=== PATIENT | male | born 1940 | race Caucasian/White ===

== ENCOUNTER 2021-11-29 14:54 | Outpatient (CLI) | payer SELFPAY ==
[2021-11-29 21:15] LABS: Basophils Absolute Auto 0.04 K/uL (0.00-0.30); Basophils Percent Auto 0.4 % (0.0-3.0); Eosinophils Absolute Auto 0.32 K/uL (0.00-0.50); Eosinophils Percent Auto 3.2 % (0.0-7.0); Hematocrit 40.3 % (37.0-53.0); Hemoglobin* 12.7 gm/dL (13.5-17.5); Immature Granulocytes Abs Auto 0.01 K/uL (0.00-0.30); Lymphocytes Percent Auto 17.3 % (20-44); Mean Corpuscular HGB Conc 32 gm/dL (32-36); Mean Corpuscular Hemoglobin 27 pg (26-34); Mean Corpuscular Volume 84 fL (80-100); Monocytes Percent Auto 5.2 % (0.0-11.0); Neutrophils Percent Auto 73.8 % (42.0-72.0); Platelet Count* 248 K/uL (140-440); RDW Coefficient of Variation % 15.5 % (11.5-15.5); Red Blood Count 4.78 m/uL (4.30-5.90); White Blood Count* 10.07 K/uL (4.50-11.00)
[2021-11-29 21:23] LABS: Slide Review Reflex No
[2021-11-29 21:32] LABS: Chloride* 107 mmol/L (96-114); Potassium* 3.9 mmol/L (3.6-5.1); Sodium* 141 mmol/L (135-149)
[2021-11-29 21:35] LABS: Blood Urea Nitrogen* 10 mg/dL (7-30); Carbon Dioxide* 24 mmol/L (20-32); Creatinine* 1.1 mg/dL (0.5-1.5); Estimated Glomerular Filt Rate 68 ml/min
[2021-11-29 21:36] LABS: Calcium* 8.9 mg/dL (8.4-10.6); Glucose* 138 mg/dL (60-115)
[2021-11-29 21:50] LABS: Troponin I* < 0.01 ng/mL (0.01-0.04)
== END 2021-11-29 14:55 | disposition home or self-care (01) ==
LOC: KYNREF 14:56
PROVIDERS: PCP Nurse Practitioner Family; Visit Provider Nurse Practitioner Family
DX: R07.9 Chest pain, unspecified (principal)
CPT/HCPCS: 36415; 80048; 84484; 85025

== ENCOUNTER 2021-12-11 15:07 | Outpatient (CLI) | payer SELFPAY ==
[2021-12-11 21:28] LABS: Basophils Absolute Auto 0.02 K/uL (0.00-0.30); Basophils Percent Auto 0.3 % (0.0-3.0); Eosinophils Absolute Auto 0.34 K/uL (0.00-0.50); Eosinophils Percent Auto 4.7 % (0.0-7.0); Hematocrit 37.3 % (37.0-53.0); Hemoglobin* 11.8 gm/dL (13.5-17.5); Immature Granulocytes Abs Auto 0.04 K/uL (0.00-0.30); Lymphocytes Absolute Auto 1.62 K/uL (0.90-2.90); Lymphocytes Percent Auto 22.5 % (20-44); Mean Corpuscular HGB Conc 32 gm/dL (32-36); Mean Corpuscular Hemoglobin 27 pg (26-34); Mean Corpuscular Volume 84 fL (80-100); Monocytes Percent Auto 7.8 % (0.0-11.0); Neutrophils Absolute Auto 4.63 K/uL (1.7-7.0); Neutrophils Percent Auto 64.1 % (42.0-72.0); Platelet Count* 264 K/uL (140-440); RDW Coefficient of Variation % 15.7 % (11.5-15.5); Red Blood Count 4.46 m/uL (4.30-5.90); White Blood Count* 7.21 K/uL (4.50-11.00)
[2021-12-11 21:31] LABS: Slide Review Reflex No
[2021-12-11 21:44] LABS: Albumin* 3.9 g/dL (3.3-5.0); Chloride* 107 mmol/L (96-114); Potassium* 3.9 mmol/L (3.6-5.1); Sodium* 142 mmol/L (135-149)
[2021-12-11 21:46] LABS: Amylase* 119 U/L (18-89); Carbon Dioxide* 25 mmol/L (20-32); Creatinine* 1.1 mg/dL (0.5-1.5); Estimated Glomerular Filt Rate 68 ml/min
[2021-12-11 21:47] LABS: Alanine Aminotransferase* 43 U/L (4-50); Alkaline Phosphatase* 286 U/L (40-150); Aspartate Amino Transferase* 44 U/L (12-35); Bilirubin Total* 1.1 mg/dL (0.1-1.5); Blood Urea Nitrogen* 11 mg/dL (7-30); Calcium* 8.8 mg/dL (8.4-10.6); Glucose* 99 mg/dL (60-115); Lipase* 107 U/L (23-300); Total Protein* 6.8 g/dL (6.0-8.3)
== END 2021-12-11 15:08 | disposition home or self-care (01) ==
PROVIDERS: PCP Nurse Practitioner Family; Visit Provider Nurse Practitioner Family
DX: R10.9 Unspecified abdominal pain (principal)
CPT/HCPCS: 36415; 80053; 82150; 83690; 85025

== ENCOUNTER 2021-12-17 15:14 | Outpatient (CLI) | payer MEDICARE, BC, SELFPAY ==
--- OUTSIDE RECORDS SUMMARY | 2021-12-17 09:41 | XMS_ITS | Encounter Summary ---
:1940 Author Organization [facility] Address [address] [place] [address] Care Team Providers Name Role Phone None, Pcp Primary Care Provider Unavailable Reason for Visit Reason Onset Date Comments Review Results 10/16/2020 Encounter Details Date Type Department Care Team Description 10/16/2020 Telephone [place] None, Pcp Review Results [address] [place], [place] [address] [place], [place] [phone] Social History Tobacco Use Types Packs/Day Years Used Date Never Smoker Smokeless Tobacco: Never Used Alcohol Use Standard Drinks/Week Comments No 0 (1 standard drink = 0.6 oz pure alcoho l) Alcohol Habits Answer Date Recorded How often do you have a drink containing alcohol? Never 04/04/2020 How many drinks containing alcohol do you have on a typical Not asked day when you are drinking? How often do you have six or more drinks on one occasion? No t asked Comment: Not asked Financial Resource Strain Answer Date Recorded How hard is it for you to pay for the very basics like Not h little at all 04/04/2020 food, housing, medical care, and heating? Food Insecurity Answer Date Recorded Within the past 12 months, you worried that your food would Never true 04/04/2020 run out before you got money to buy more. Within the past 12 months, the food you bought just didn't N ever true 04/04/2020 last and you didn't have money to get more. Transportation Needs Answer Date Recorded In the past 12 months, has lack of transportation kept you f rom No 04/04/2020 medical appointments or from getting medications? In the past 12 months, has lack of transportation kept you f rom No 04/04/2020 meetings, work, or getting things needed for daily living? Sex Assigned at Date Recorded Not on file documented as of this encounter Miscellaneous Notes Telephone Encounter - Abdirahman Hernandez - 10/16/2020 9:34 AM CDT Pt is scheduled for appt on 10/25. Thank you. Telephone Encounter - Guillermina Bradford LPN - 10/16/2020 8:23 AM CDT Please call Obey and schedule a review results appointment. Keep a copy at the front office coordinator for his appointment. Send to scanning the original. documented in this encounter Plan of Treatment Not on filedocumented as of this encounter Visit Diagnoses Not on filedocumented in this encounter Care Teams Supervisor Lump Room Relationship Specialty Start Date End Date None, Pcp PCP - General Entertainment Dancer 03/29/20 12/31/[address] [place] [phone] documented as of this encounter
--- OUTSIDE RECORDS SUMMARY | 2021-12-17 09:41 | XMS_ITS | Encounter Summary ---
:1940 Author Organization [facility] Address [address] [place] [address] Care Team Providers Name Role Phone None, Pcp Primary Care Provider Unavailable Encounter Details Date Type Department Care Team Description 09/08/2020 Orders Only [place] Elisha Woodward MD [address] [facility] [address] [place], [place] [address] [place], [place] [phone] (Wo rk) Social History Tobacco Use Types Packs/Day Years [...] on file documented as of this encounter Plan of Treatment Not on filedocumented as of this encounter Visit Diagnoses Not on filedocumented in this encounter Care Teams Employee Communications Specialist Relationship Specialty Start Date End Date None, Pcp PCP - General Sign Maintenance 03/29/20 12/31/20 [address] [place] [address] documented as of this encounter
--- OUTSIDE RECORDS SUMMARY | 2021-12-17 09:41 | XMS_ITS | Encounter Summary ---
:1940 Author Organization [facility] Address [address] [place] [address] Care Team Providers Name Role Phone Elisha Woodward MD Primary Care Provider Reason for Visit Reason Comments Med Refill Encounter Details Date Type Department Care Team Description 12/13/2021 Refill [place] Elisha Woodward Hyperlipidemia, unspecified [address] [facility] MD Dont[place] hyperlipidemia type [place], [place] [address] [phone] [place] [address] Social History Tobacco Use Types Packs/Day Years [...] this encounter Miscellaneous Notes Telephone Encounter - Nisha Morrison RN - 12/13/2021 9:11 AM CDT Please see med request. Telephone Encounter - Mitra Patel LPN - 12/13/2021 9:04 AM CDT Last visit in provider department: 10/25/2020 Last visit requested medication was discussed: 10/25/2020 Last Rx: #90 with 3 refills 10/25/2020 Requested Prescriptions Pending Prescriptions Disp Refills ??? ezetimibe (ZETIA) 10 MG tablet [Pharmacy Med Name: EZETIMIBE 10MG TABS] 90 tablet 1 Sig: TAKE ONE TABLET BY MOUTH EVERY DAY Labs: Component Latest Ref Rng & Units 08/21/2020 Cholesterol 0 - 199 mg/dL 166 Triglycerides 0 - 149 mg/dL 167 (H) HDL 40 - 250 mg/dL 37 (L) LDL Calculated 0 - 99 mg/dL 96 Vitals: BP Readings from Last 2 Encounters: 10/25/20 134/88 10/25/20 134/88 Upcoming appointment with provider: Visit date not found Patient is due for Annual Well Adult appointment. PSR/Nurse: Please contact patient to assist with scheduling. documented in this encounter Plan of Treatment Not on filedocumented as of this encounter Visit Diagnoses Diagnosis Hyperlipidemia, unspecified hyperlipidem ia type documented in this encounter Care Teams Microwave Technician Relationship Specialty Start Date End Date Elisha Woodward MD PCP - General 01/01/[address] [place] [address] documented as of this encounter
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
--- OUTSIDE RECORDS SUMMARY | 2021-12-17 09:41 | XMS_ITS | Encounter Summary ---
:1940 Author Organization [facility] Address [address] [place] [address] Care Team Providers Name Role Phone Elisha Woodward MD Primary Care Provider Reason for Visit Reason Comments Med Refill Encounter Details Date Type Department Care Team Description 11/01/2021 Refill [place] Elisha Woodward Gastroesophageal reflux [address] MD Dontrell disease without esophagitis [place], [place] [address]67 [facility] 20 [place] [address] Social History Tobacco Use Types Packs/Day Years [...] Telephone Encounter - Nisha Morrison RN - 11/01/2021 1:42 PM CDT Please review medication request. Telephone Encounter - Frances Arauz LPN - 11/01/2021 1:14 PM CDT Last visit in provider department: 10/25/2020 Last visit requested medication was discussed: 10/25/2020 Last Rx: 10/25/2020 # 90, 3 refills Requested Prescriptions Pending Prescriptions Disp Refills ??? pantoprazole (PROTONIX) 40 MG EC tablet [Pharmacy Med Name: PANTOPRAZOLE SODIUM 40MG TBEC] 90 tablet 1 Sig: TAKE ONE TABLET BY MOUTH EVERY DAY BEFORE BREAKFAST Vitals: BP Readings from Last 2 Encounters: 10/25/20 134/88 10/25/20 134/88 Upcoming appointment with provider: Visit date not found Patient is due for appointment. PSR/Nurse: Please contact patient to assist with scheduling. documented in this encounter Plan of Treatment Not on filedocumented as of this encounter Visit Diagnoses Diagnosis Gastroesophageal reflux disease without esophagitis Esophageal reflux documented in this encounter Care Teams Conservation Planner Relationship Specialty Start Date End Date Elisha Woodward MD PCP - General 01/01/[address] [place] [address] documented as of this encounter
--- OUTSIDE RECORDS SUMMARY | 2021-12-17 09:41 | XMS_ITS | Encounter Summary ---
:1940 Author Organization [facility] Address [address] [place] [address] Care Team Providers Name Role Phone None, Pcp Primary Care Provider Unavailable Encounter Details Date Type Department Care Team Description 10/25/2020 Lab [place] Iron deficiency anemia due t o [address] chronic blood loss [place] [address] Social History Tobacco Use Types Packs/Day Years [...] Not on filedocumented as of this encounter Procedures Procedure Name Priority Date/Time Associated Diagnosis Comme nts CBC BRANCH OFFICE Routine 10/25/2020 9:17 AM Resu lts for this W/DIFF CDT procedure are i n the results section. documented in this encounter Results (ABNORMAL) CBC Branch Off w/Diff (10/25/2020 9:17 AM CDT) [facility] gist Method Time Signature WBC 7.2 3.5 - 10.5 10/25/2020 [facility] K/uL 9:32 AM CDT [place] RBC 4.60 4.30 - 10/25/2020 [facility] 5.70 M/uL 9:32 AM CDT [place] Hemoglobin 12.7 (L) 13.5 - 10/25/2020 [facility] 17.5 g/dL 9:32 AM CDT [place] Hematocrit 40.3 38.0 - 10/25/2020 [facility] 50.0 % 9:32 AM CDT [place] Platelets 215 150 - 450 10/25/2020 [facility] K/uL 9:32 AM CDT [place] MCV 87.6 81.2 - 10/25/2020 [facility] 95.1 fL 9:32 AM CDT [place] MCH 27.6 26.0 - 10/25/2020 [facility] 32.0 pg 9:32 AM CDT [place] MCHC 31.5 (L) 32.0 - 10/25/2020 [facility] 36.0 g/dL 9:32 AM CDT [place] RDW 14.0 11.8 - 10/25/2020 [facility] 15.6 % 9:32 AM CDT [place] Lymphocytes % 23.8 % 10/25/2020 [facility] 9:32 AM CDT [place] Mid-size Cells 9.9 % 10/25/2020 [facility] 9:32 AM CDT [place] Granulocytes/Urszula 66.3 % 10/25/2020 [facility] trophils 9:32 AM CDT [place] Lymphocytes 1.7 0.9 - 2.9 10/25/2020 [facility] Absolute K/uL 9:32 AM CDT [place] MIDS Absolute 0.7 0.4 - 1.5 10/25/2020 [facility] K/uL 9:32 AM CDT [place] Granulocytes/Urszula 4.8 1.7 - 7.0 10/25/2020 [facility] [place] trophils K/uL 9:32 AM CDT [place] Absolute Specimen Anatomical Collection Method Collection Time Receive d Time (Source) Location / / Volume Laterality 10/25/2020 9:17 AM 9:31 CDT AM CDT D. 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
--- OUTSIDE RECORDS SUMMARY | 2021-12-17 09:41 | XMS_ITS | Encounter Summary ---
:1940 Author Organization [facility] Address [address] [place] [address] Care Team Providers Name Role Phone None, Pcp Primary Care Provider Unavailable Reason for Visit Reason Onset Date Comments Lab result 09/01/2020 Encounter Details Date Type Department Care Team Description 09/01/2020 Telephone [place] Elisha Woodward MD Lab result [address] [place], [place] [address] [place], [place] [phone] (Wo rk) Social History Tobacco Use Types [...] this encounter Miscellaneous Notes Telephone Encounter - Guillermina Bradford LPN - 09/04/2020 8:27 AM CDT Sent today and informed again about pharmacy. Telephone Encounter - Elisha Woodward MD - 09/01/2020 5:37 PM CDT I called and talked to Obey about his blood test both his hemoglobin being low as well as his stool test being positive for blood. We can arrange for him to get a colonoscopy and most likely endoscopy for evaluation. I have sent to his pharmacy for the GoLYTELY prep. If you could please send him by mail a copy of the prep sheet. After you send the prep sheet then call him later next week because he will be out of town till and go over the prep sheet make sure he understands this. Telephone Encounter - Arti Amaya - 09/01/2020 3:54 PM CDT Pt called wanting his lab result from this morning. Pt will be out of town next week and would really like the result today if possible. Please call Pt at home [phone] or cell [phone] to advise. documented in this encounter Plan of Treatment Not on filedocumented as of this encounter Visit Diagnoses Diagnosis Colon cancer screening - Primary Special screening for malignant neoplasm s, colon documented in this encounter Care Teams Procurement Professional Relationship Specialty Start Date End Date None, Pcp PCP - General Collar Baster Jumpbasting 03/29/20 12/31/20 [address] [place] [address] documented as of this encounter
--- OUTSIDE RECORDS SUMMARY | 2021-12-17 09:41 | XMS_ITS | Encounter Summary ---
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; [place] [address] Adenomatous polyp of colon, unspecified part of colon; [address] [place] Hyperlipidemia, unspecified hyperlipidem ia type; [phone] [place], Atherosclerosi s of [place] coronary artery without angina pectoris, unspecified whether [place] or transplanted heart; [place] [address] 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, unspecified vessel or lesion type, unspecified whether [place] or transplanted heart; [phone] Gastroesophagea l reflux disease without esophagitis (Work) Social History Tobacco Use Types Packs/Day Years [...] on file documented as of this encounter Last Filed Vital Signs Vital Sign Reading Time Taken Comments Blood Pressure 134/88 10/25/2020 8:31 AM CDT Pulse 76 10/25/2020 8:31 AM CDT Temperature 36.2 ??C (97.1 ??F) 10/25/2020 8:31 AM CDT Respiratory Rate 14 10/25/2020 8:31 AM CDT Oxygen Saturation 94% 10/25/2020 8:31 AM CDT Inhaled Oxygen Concentration - - Weight 75.3 kg (166 lb) 10/25/2020 8:31 AM CDT Height 167.4 cm (5' 5.91) 10/25/2020 8:31 AM CDT Body Mass Index 26.87 10/25/2020 8:31 AM CDT documented in this encounter Progress Notes Elisha Woodward MD - 10/25/2020 8:40 AM CDT Estab Patient Visit Subjective Patient ID: Obey Vines is a 80 y.o. male. HPI the patient is here today for follow-up of his anemia as well as his recent testing procedures. The patient is our 80-year-old gentleman who on recent laboratory test his hemoglobin was shown to drop fairly significantly from the previous 15 down to 12.8. His guaiac of his stool was positive. 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 He has colonoscopy showed that he has a couple of polyps that were adenomatous but because of his age no further colonoscopy procedures are necessarily indicated. He will need to stay on Protonix daily indefinitely. Because his hemoglobin today is still a little low we have added ferrous gluconate 1 tablet daily as well. He is actually having no particular other questions or concerns and otherwise feels okay Because of his Almeida's esophagus we did discuss with him to raise the head of his bed at least 6 inches to help decrease nighttime silent acid reflux. He does have also have a fairly good sized hiatal hernia and raising the head of the bed should be of benefit for him. We also discussed the shingles vaccine with him that he is going to check with his pharmacy to see if what his cost might be and we have encouraged him to have this done. 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 Do not crush or chew. Coronary artery 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 pectoris, unspecified vessel or lesion type, unspecified whether [place] or transplanted heart Gastroesophageal reflux disease without esophagitis - pantoprazole (PROTONIX) 40 MG EC tablet; TAKE 1 TABLET BY MOUTH ONCE DAILY BEFORE BREAKFAST The overall assessment is as stated above The plan at this time is to start him on iron tablets 1 pill once daily continue home on all of his other medications as he is currently taking them Raise the head of his bed at least 6 inches I would recheck a hemoglobin approximately 4 to 6 months to see how he is doing after initiation of iron therapy and continuation of Protonix. Consult time was 20 minutes and all 20 minutes was spent in review with him of his endoscopy report he has colonoscopy report what the reports mean both short- term and long-term as well as discussion of raising the head of his bed and the other measures for his history of hiatal hernia and Almeida's esophagus. 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 Adenomatous polyp of colon, unspecified part of colon Hyperlipidemia, unspecified hyperlipidem ia type Atherosclerosis of [place] coronary arter y without angina pectoris, unspecified whether [place] or transplanted heart 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, unspecified vessel or lesion type, unspecified whether [place] or transplant ed heart Gastroesophageal reflux disease without esophagitis Esophageal reflux documented in this encounter Care Teams Broadcast Transmitter Operator Relationship Specialty Start Date End Date None, Pcp PCP - General Furnace Loader 03/29/20 12/31/20 [address] [place] [address] documented as of this encounter
--- OUTSIDE RECORDS SUMMARY | 2021-12-17 09:41 | XMS_ITS | Encounter Summary ---
:1940 Author Organization [facility] Address [address] [place] [address] Care Team Providers Name Role Phone Elisha Woodward MD Primary Care Provider Reason for Visit Reason Comments Med Refill Encounter Details Date Type Department Care Team Description 11/17/2021 Refill [place] Elisha Woodward Hyperlipidemia, unspecified hyperlipidemia type; [address] [place] Gastroesophageal reflux disease without esophagitis [place], [place] [address] [place] [address] Social History Tobacco Use Types Packs/Day Years [...] Telephone Encounter - Nisha Morrison RN - 11/20/2021 8:09 AM CDT Please call patient to schedule. Telephone Encounter - Nisha Morrison RN - 11/20/2021 7:47 AM CDT Please review. Telephone Encounter - Jasmyn Thorne MA - 11/20/2021 7:15 AM CDT Last visit in provider department: 10/25/20 Last visit requested medication was discussed: 10/25/20 Last Rx: atorvastatin (LIPITOR) 80 MG tablet 10/25/20, #90, 3 refills Requested Prescriptions Pending Prescriptions Disp Refills ??? atorvastatin (LIPITOR) 80 MG tablet [Pharmacy Med Name: ATORVASTATIN CALCIUM 80MG TABS] 90 tablet 1 Sig: TAKE ONE TABLET BY MOUTH AT BEDTIME Refused Prescriptions Disp Refills ??? pantoprazole (PROTONIX) 40 MG EC tablet [Pharmacy Med Name: PANTOPRAZOLE SODIUM 40MG TBEC] 90 tablet 1 Sig: TAKE ONE TABLET BY MOUTH EVERY DAY BEFORE BREAKFAST Labs: Lipid Panel 08/21/20 Vitals: BP Readings from Last 2 Encounters: 10/25/20 134/88 10/25/20 134/88 Upcoming appointment with provider: none Patient is due for an appointment. PSR/Nurse: Please contact patient to assist with scheduling. documented in this encounter Plan of Treatment Not on filedocumented as of this encounter Visit Diagnoses Diagnosis Hyperlipidemia, unspecified hyperlipidem ia type Gastroesophageal reflux disease without esophagitis Esophageal reflux documented in this encounter Care Teams Director Property Relationship Specialty Start Date End Date Elisha Woodward MD PCP - General 01/01/[address] [place] [address] documented as of this encounter
--- OUTSIDE RECORDS SUMMARY | 2021-12-17 09:41 | XMS_ITS | Encounter Summary ---
:1940 Author Organization [facility] Address [address] [place] [address] Care Team Providers Name Role Phone Elisha Woodward MD Primary Care Provider Encounter Details Date Type Department Care Team Description 02/16/2021 Immunization Family Medicine [address] [place] [address] Social History Tobacco Use Types Packs/Day Years [...] on filedocumented in this encounter Care Teams Roto Rooter Operator Relationship Specialty Start Date End Date Elisha Woodward MD PCP - General 01/01/[address] [place] [address] documented as of this encounter
--- OUTSIDE RECORDS SUMMARY | 2021-12-17 09:41 | XMS_ITS | Clinical Summary ---
:1940 Author Organization [facility] Address [address] [place] [address] Care Team Providers Name Role Phone Elisha Woodward MD Primary Care Provider Allergies Active Allergy Reactions Severity Noted Date Comments Oxycodone 08/13/2018 Confusion Medications Medication Sig Dispensed Refills Start Date End Date Status nitroglycerin Place 1 tablet 10 tablet 2 03/29/2020 Active (NITROSTAT) 0.4 MG SL (0.4 mg total) tabletIndications: under the Coronary artery tongue every 5 disease without (five) minutes angina pectoris, if needed for unspecified vessel or chest pain lesion type, unspecified whether [place] or transplanted heart metoprolol succinate Take ONE pill 90 tablet 3 10/25/2020 Active XL (TOPROL-XL) 25 MG ONCE a day for 24 hr blood tabletIndications: pressure. Do Atherosclerosis of not crush or [place] coronary chew. artery without angina pectoris, unspecified whether [place] or transplanted heart aspirin 81 MG Chew 81 mg 1 0 Act sveta chewable tablet (one) time each day pantoprazole TAKE ONE 90 tablet 3 11/01/2021 Active (PROTONIX) 40 MG EC TABLET BY tabletIndications: MOUTH EVERY Gastroesophageal DAY BEFORE reflux disease BREAKFAST without esophagitis atorvastatin TAKE ONE 90 tablet 1 11/20/2021 Active (LIPITOR) 80 MG TABLET BY tabletIndications: MOUTH AT Hyperlipidemia, BEDTIME unspecified hyperlipidemia type ezetimibe (ZETIA) 10 TAKE ONE 90 tablet 1 12/13/2021 Active MG tabletIndications: TABLET BY Hyperlipidemia, MOUTH EVERY unspecified DAY hyperlipidemia type atorvastatin Take 1 tablet 90 tablet 3 10/25/2020 Di scontinued (LIPITOR) 80 MG (80 mg total) 2 tabletIndications: by mouth 1 Hyperlipidemia, (one) time unspecified each day hyperlipidemia type ezetimibe (Zetia) 10 Take 1 tablet 90 tablet 3 10/25/202012/03 Discontinued MG tabletIndications: (10 mg total) 2 Hyperlipidemia, by mouth 1 unspecified (one) time hyperlipidemia type each day Active Problems Problem Noted Date 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 Added automatically from request for mayte hardy [id number] Occult blood in stools 09/11/2020 Overview: Formatting of this note might be differe nt from the original. Added automatically from request for mayte hardy [id number] Primary osteoarthritis, left shoulder 12/20/2019 Overview: Formatting of this note might be differe nt from the original. Added automatically from request for mayte hardy [id number] Bilateral hearing loss 12/14/2019 Gastroesophageal reflux disease without esophagitis Hyperglycemia 12/14/2019 Cerumen impaction 04/02/2019 Last Assessment & Plan: Formatting of th is note might be different from the original. Relevant Hx: Pt wears hearing aids bilat erally. History of recurrent cerumen impacation. Has ears cleared about three times a year. Does not use Q-tips. No ear pain. No systemic symptoms. Today's Plan: Bilateral cerumen impactio n. Bilateral ear irrigation completed by nursing staff. Follow-up with prototype technician on a regular basis. 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 Cervicalgia 10/28/2014 Hyperlipoproteinemia 09/02/2014 Disturbance of skin sensation 12/07/2013 Vitamin D deficiency 03/10/2009 Polymyalgia rheumatica 03/25/2007 History of cerebrovascular accident 06/10/2006 Encounters Date Type Specialty Care Team Description 12/13/2021 Refill Family Medicine Elisha Woodward, Hyperl ipidemia, unspecified MD hyperlipidemia type 11/17/2021 Refill Family Medicine Elisha Woodward, Maria G ipidemia, unspecified hyperlipidemia type; Gastroesophagea l reflux disease without esophagitis 11/01/2021 Refill Family Medicine Elisha Woodward, Gastro esophageal reflux disease MD without esophag itis from Last 3 Months Immunizations Name Administration Dates Next Due COVID-19, mRNA, LNP-S, PF, 30mcg/0.3mL 02/16/2021, 1, 06/30/2020 dose Pfizer Flu Vaccine High Dose 65yrs and Older IM 03/29/2020, 015, 07/05/2013 Influenza (IM) Preservative Free 03/03/2007 Influenza, Unspecified 03/24/2015 Pneumococcal Conjugate 13-Valent 01/09/2018 Pneumococcal Polysaccharide 06/10/2006 Td 08/29/2003 Tdap 01/08/2012 Family History Medical History Relation Comments Stroke Father Heart disease Mother Hypertension Mother Cancer Paternal Grandmother Heart disease Sister 2 Hypertension Sister 2 Relation Status Comments Daughter 1 Alive Daughter 2 Alive Father Mother Paternal Grandmother Sister 1 Alive Sister 2 Son 1 Alive Son 2 Alive Social History Tobacco Use Types Packs/Day Years [...] Assigned at Date Recorded Not on file Last Filed Vital Signs Vital Sign Reading [...] Mass Index 26.87 10/25/2020 8:31 AM CDT Plan of Treatment Health Maintenance Due Date Last Done Comments Glaucoma Screening 67+ Yr 1940 COVID-19 Vaccine (4 - Booster 06/19/2021 02/16/2021, for Pfizer series) 07/21/2020, 06/30/2020 Fall Risk Performed 10/25/2021 10/25/2020 [facility] Annual Wellness 10/25/2021 10/25/2020, 01/09/2018 [facility] Pneumococcal Vaccine: 65+ Completed 01/09/2018, Years 06/10/2006 [facility] Pneumococcal Vaccine: <64 Completed 01/09/2018, 06/10/2006 HPV Vaccines Aged Out No longer eligib le based on patient's age to complete this to [facility] Insurance Payer Benefit Plan / Subscriber ID Effective Dates Phone Addre ss Type Group MEDICARE MEDICARE [id number] 2006-Yandy [address] [place] [id number] BCBS OF BCBS [place] [id number] 2016-Yandy [address] [place] [address] [place], [place] MEDICARE NON [id number] (Home) [place] [id number] Care Teams Pr Specialist Relationship Specialty Start Date End Date Elisha Woodward MD PCP - General 01/01/[address] [place] [address]
--- OUTSIDE RECORDS SUMMARY | 2021-12-17 09:41 | XMS_ITS | Encounter Summary ---
:1940 Author Organization [facility] Address [address] [place] [address] Care Team Providers Name Role Phone None, Pcp Primary Care Provider Unavailable Reason for Visit Reason Comments Medicare Annual Wellness Visit Subsequent Encounter Details Date Type Department Care Team Description 10/25/2020 Clinical Support Margarito Love Medicare annual wellness [address] visit, subsequent Margarito Love [place] [address] (Primary Dx) [phone] Social History Tobacco Use Types Packs/Day Years [...] CDT documented in this encounter Progress Notes Guillermina Bradford LPN - 10/25/2020 8:40 AM CDT Annual Wellness Visit CARE TEAM / RESOURCES: Patient Care Team: Pcp None as PCP - General (Ui Application Developer) Eye Care: [facility] Dental [facility]: [facility] Pharmacy: [facility] [address] [place] [id number] Other: Visit Vitals BP 134/88 (BP Location: Left arm, Patient Position: Sitting, BP Cuff Size: Adult long) Pulse 76 Temp 36.2 ??C (97.1 ??F) (Temporal) Resp 14 Ht 1.674 m (5' 5.91) Wt 75.3 kg (166 lb) SpO2 94% BMI 26.87 kg/m?? Smoking Status Never Smoker BSA 1.87 m?? Allergies Allergen Reactions ??? Oxycodone Confusion Outpatient Encounter Medications as of 10/25/2020 Medication Sig Dispense Refill ??? aspirin 81 MG tablet Take 1 tablet by mouth 1 (one) time each day ??? atorvastatin (LIPITOR) 80 MG tablet Take 1 tablet (80 mg total) by mouth 1 (one) time each day 90 tablet 3 ??? ezetimibe (Zetia) 10 MG tablet Take 1 tablet (10 mg total) by mouth 1 (one) time each day 90 tablet 3 ??? nitroglycerin (NITROSTAT) 0.[address] 1 tablet (0.4 mg total) under the tongue every 5 (five) minutes if needed for chest pain 10 tablet 2 ??? pantoprazole (PROTONIX) 40 MG EC tablet TAKE 1 TABLET BY MOUTH ONCE DAILY BEFORE BREAKFAST 90 tablet 3 ??? metoprolol succinate XL (TOPROL-XL) 25 MG 24 hr tablet Take 1 tablet (25 mg total) by mouth 1 (one) time each day Do not crush or chew. 90 tablet 3 No facility-administered encounter medications on file as of 10/25/2020. Immunization History Administered Date(s) Administered ??? COVID-19, mRNA, LNP-S, PF, 30mcg/0.3mL dose Pfizer 06/30/2020, 07/21/2020 ??? Flu Vaccine High Dose 65yrs and Older IM 07/05/2013, 03/24/2015, 03/29/2020 ??? Influenza (IM) Preservative Free 03/03/2007 ??? Influenza, Unspecified 03/24/2015 ??? Pneumococcal Conjugate 13-Valent 01/09/2018 ??? Pneumococcal Polysaccharide 06/10/2006 ??? Td 08/29/2003 ??? Tdap 01/08/2012 Patient Active Problem List Diagnosis ??? Age-related osteoporosis without current pathological fracture ??? Atherosclerotic heart disease of [place] coronary artery without angina pectoris ??? Disturbance of skin sensation ??? Polymyalgia rheumatica (HCC) ??? Peripheral vascular disease (HCC) ??? Unspecified cataract ??? Cervicalgia ??? Hyperlipoproteinemia ??? Cerumen impaction Past Medical History: Diagnosis Date ??? Carotid stenosis surgery ??? Carpal tunnel syndrome ??? Colon polyp ??? Coronary artery disease ??? Depression ??? Elevated liver enzymes ??? GERD (gastroesophageal reflux disease) ??? Hearing loss ??? Hyperlipidemia ??? Osteoporosis ??? Polymyalgia rheumatica (HCC) ??? Skin cancer basal cell ??? TIA (transient ischemic attack) ??? Varicella ??? Visual impairment ??? Vitamin D deficiency ??? Vocal cord paralysis Past Surgical History: Procedure Laterality Date ??? CAROTID ENDARTERECTOMY ??? JOINT REPLACEMENT ??? SHOULDER SURGERY Left ??? VASECTOMY Social History Socioeconomic History ??? Marital status: Spouse name: None ??? Number of children: 4 ??? Years of education: None ??? Highest education level: None Occupational History ??? 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 Smoking status: Never Smoker ??? Smokeless tobacco: Never Used Vaping Use ??? Vaping Use: Never used Substance and Sexual Activity ??? Alcohol use: No ??? Drug use: No ??? Sexual activity: None Other Topics Concern ??? None Social History Narrative Live in house with spouse. No pets. Social Determinants of Health Financial Resource Strain: Low Risk ??? Difficulty of Paying Living Expenses: Not hard at all Food Insecurity: No Food Insecurity ??? Worried About Running Out of Food in the Last Year: Never true ??? Ran Out of Food in the Last Year: Never true Transportation Needs: No Transportation Needs ??? Lack of Transportation (Medical): No ??? Lack of Transportation (Non-Medical): No Physical Activity: ??? Days of Exercise per Week: ??? Minutes of Exercise per Session: Stress: ??? Feeling of Stress : Social Connections: ??? Frequency of Communication with Friends and Family: ??? Frequency of Social Gatherings with Friends and Family: ??? Attends Buddhist Services: ??? Active Member of Clubs or Organizations: ??? Attends Club or Organization Meetings: ??? Marital Status: Intimate Partner Violence: ??? Fear of Current or Ex-Partner: ??? Emotionally Abused: ??? Physically Abused: ??? Sexually Abused: Pain Assessment Scored: 0-No pain and location: Utilization / Navigation of Health Care Systems: Does not overuse the [facility], Acute Care, eVisits or Emergency Room. PHQ-9 mental health screening performed. Scored: 0 / 27 CHANTE-7 anxiety screening performed. Scored: 0 / 21 Mini-Cog test performed. Scored: 1 / 5 CAGE-AID test performed. BMI/weight management reviewed. BMI: Body mass index is 26.87 kg/m??. BMI less than 30 referral to nutrition education not applicable. Fall Risk Assessment performed. Scored: Tug time: Referral to Physical Therapy not applicable due to low fall risk. Colon Cancer Screening: Last done: 09/29/2020 Due: Lower Never, Upper one year Breast Cancer Screening: Last done: N/ A Osteoporosis Screening: Last done: N/A Prostate Cancer Screening: Lab Results Component Value Date PSA 1.3 04/22/2019 Hepatitis C Screening: No results found for: HEPCAB Glaucoma Screening: Not indicated AAA Screening: Not indicated Lung Cancer Screening: Not indicated Findings: The patient will have a repeat EGD in one year September 2021 The following referral(s) were created: None. What is an Annual Wellness Visit? Yearly appointment performed by another provider to create or update the personalized prevention plan. This plan helps prevent illness based on your current health and risk factors. ?? Medicare part B coverage the Annual Wellness Visit 100%. ?? Keep in mind that the annual wellness visit is not head to toe physical. ?? The service is similar to but separate from a one time a Welcome to Medicare Preventative Visit. The following information is regarding different screenings that will be discussed. Colon Cancer: ?? Age 50 and up (usually done until age 75) Breast Cancer: Medicare Part B (Medical Insurance) covers a Screening mammogram once every 12 months (11 full months must have passed since the last screening) ?? Women with Part B 40 or older are covered. Provider discretion beyond age 74 ?? Women with Part B between 35-39 can get one baseline mammogram Osteoporosis: Medicare Part B (Medical Insurance) covers this test once every 24 months for people who meet the criteria below: ?? A woman whose doctor determines both of these (based on her medical history and other findings): She's estrogen deficient AND She's at risk for osteoporosis ?? A person whose X-rays show possible osteoporosis, osteopenia, or vertebral fractures ?? A person taking prednisone or steroid-type drugs or is planning to begin this treatment ?? A person who has been diagnosed with primary hyperparathyroidism ?? A person who is being monitored to see if their osteoporosis drug therapy is working Prostate Cancer: Medicare Part B (Medical Insurance) covers: ?? Digital rectal exam: Once every 12 months ?? Prostate specific antigen (PSA) test: Once every 12 months ?? All men over 50 (beginning the day after your 50th birthday) with Part B are covered. Hepatitis C: Medicare covers one Hepatitis C screening test. Medicare also covers yearly repeat screening for certain people at high risk. ?? Those at high risk because they use or used illicit injection drugs. ?? Those who had a blood transfusion before 1991. ?? Those born between 0988-2065. Glaucoma: Medicare Part B (Medical Insurance) covers a glaucoma test once every 12 months for people at high risk for glaucoma. You're at high risk if one of these applies: ?? You have diabetes. ?? You have a family history of glaucoma. ?? You're and 50 or older. ?? You're and 65 or older. AAA: Medicare Part B (Medical Insurance) covers a one-time abdominal aortic aneurysm ultrasound for people who meet the criteria below: ?? You have a family history of abdominal aortic aneurysms. ?? You???re a man age 65 to 75 and have smoked at least 100 cigarettes in your lifetime. Lung Cancer: Medicare Part B (Medical Insurance) covers a lung cancer screening with Low Dose Computed Tomography(LDCT) once per year to those who meet ALL of these conditions: ?? They're 55-77. ?? They're asymptomatic (they don???t have signs or symptoms of lung cancer). ?? They're either a current smoker or have quit smoking within the last 15 years. ?? They have a tobacco smoking history of at least 30 ???pack years?? (an average of one pack a dayfor 30 years). documented in this encounter Plan of Treatment Not on filedocumented as of this encounter Visit Diagnoses Diagnosis Medicare annual wellness visit, subseque nt - Primary documented in this encounter Care Teams Industrial Garage Servicer Relationship Specialty Start Date End Date None, Pcp PCP - General Ui Application Developer 03/29/20 12/31/[address] [place] [phone] documented as of this encounter
--- OUTSIDE RECORDS SUMMARY | 2021-12-17 09:41 | XMS_ITS | Encounter Summary ---
:1940 Author Organization [facility] Address [address] [place] [address] Care Team Providers Name Role Phone None, Pcp Primary Care Provider Unavailable Encounter Details Date Type Department Care Team Description 10/15/2020 Orders Only [place] Elisha Woodward MD [address] [facility] [address] [place], [place] [address] [place], [place] [phone] (Wo rk) Social History Tobacco Use Types [...] on filedocumented in this encounter Care Teams Hand Presser Relationship Specialty Start Date End Date None, Pcp PCP - General Retail Service Specialist 03/29/20 12/31/20 [address] [place] [address] documented as of this encounter
--- OUTSIDE RECORDS SUMMARY | 2021-12-17 09:41 | XMS_ITS | Encounter Summary ---
:1940 Author Organization [facility] Address [address] [place] [address] Care Team Providers Name Role Phone None, Pcp Primary Care Provider Unavailable Encounter Details Date Type Department Care Team Description 09/08/2020 Orders Only Elisha Young Colon cancer screening [address] [place] (Primary Dx) [place], [place] [address] [address] [facility] [address] [place] [address] Social History Tobacco Use Types Packs/Day Years [...] colon documented in this encounter Care Teams Electro Mechanic Relationship Specialty Start Date End Date None, Pcp PCP - General Film Processing Shift Supervisor 03/29/20 12/31/20 [address] [place] [address] documented as of this encounter
--- OUTSIDE RECORDS SUMMARY | 2021-12-17 09:41 | XMS_ITS | Encounter Summary ---
:1940 Author Organization [facility] Address [address] [place] [address] Care Team Providers Name Role Phone None, Pcp Primary Care Provider Unavailable Reason for Referral Consultation (Routine) - Closed Specialty Diagnoses / Procedures Referred By Contact Refer red To Contact Diagnoses Anemia, unspecified type Guaiac positive stools Elisha Woodward MD [facility] [address] [address] Referral ID Status Reason Start Date Expiration Date Visits Requ ested Visits Authorized [id number] Closed 09/08/2020 09/08/2021 1 1 Reason for Visit Reason Onset Date Comments Referral 09/08/2020 Encounter Details Date Type Department Care Team Description 09/08/2020 Telephone TickfawElisha Young MD Referral [address] [facility] [address] [place], [place] [address] [place], [place] [phone] (Wo rk) Social History Tobacco Use Types [...] Telephone Encounter - Nisha Morrison RN - 09/08/2020 10:41 AM CDT Patient informed. Telephone Encounter - Guillermina Bradford LPN - 09/08/2020 10:36 AM CDT Please fax referral to [facility] Telephone Encounter - Elisha Woodward MD - 09/08/2020 10:17 AM CDT I have placed a referral for Obey to get a colonoscopy at [facility]. I have also sent to Obey's pharmacy [facility] in [facility] for the GoLYTELY prep. After you fax the referral to [facility] in [facility] I would have you call one of their colonoscopy nurses to alert them to this referral in that I amsuggesting that the consider doing both upper endoscopy as well as colonoscopy and I believe they can do them at the same time. We do not really know where the source of his drop of hemoglobin and positive stool sample for blood is coming from. If they have any questions let me know. Then call Obey chester him know the referral was faxed he should hear from someone within the next couple of days. He should bean picker machine operator he has proper from his pharmacy. And also let him know that this may be both scoping from above looking at his stomach as well as a colonoscopy. Telephone Encounter - Nisha Morrison RN - 09/08/2020 9:47 AM CDT Patient would like to do this at [facility]. Please place order. Prep instructions were mailed last week. Telephone Encounter - Elisha Woodward MD - 09/08/2020 9:38 AM CDT Obey had mentioned that he was going to be out of town until yesterday so I have not contacted anyone yet. Contact Obey let him know that I can put the request in the day and someone should contact himnext week sometime to arrange to have this done. Ask him again if he has any particular preference about where he has since colonoscopy done. We could do it down at [facility] we could do it at [facility] at the [facility] site because of his underlying previous health history [facility] with not do this for him. Once you find out where he might want to go then will start putting the request in. You can go over the prep sheet with him and send the prep sheet to him in the mail or he can stop bythe office to pick it up or he can stop by the [place] office and bean picker machine operator the prep sheet. I will also send him to his pharmacy and for the GoLYTELY prep but she can go over that with him as well as to how to prepare that. Remind him his best to dilute the prep with Gatorade either a yellowish or clear or slightly green-tinged Gatorade but not the purple Jody or other blues. Let me know where he may want to have this done and then will start putting in the referral. Telephone Encounter - Nisha Morrison RN - 09/08/2020 9:01 AM CDT I do not see a referral for a colonoscopy or GI specialist. Please advise and place. Telephone Encounter - Aliza Renee - 09/08/2020 8:58 AM CDT Patient has not heard from anyone about referral to specialist for blood in his stool. Please call him at [phone]. documented in this encounter Plan of Treatment Scheduled Referrals Name Type Priority Associated Diagnoses [facility] Outpatient Referral Routine Anemia, unspec ified Ordered: Referral type 09/08/2020 Guaiac positive stools documented as of this encounter Visit Diagnoses Diagnosis Anemia, unspecified type - Primary Guaiac positive stools Nonspecific abnormal finding in stool co ntents documented in this encounter Care Teams Weaving Professor Relationship Specialty Start Date End Date None, Pcp PCP - General Food Services Coordinator 03/29/20 12/31/20 [address] [place] [address] documented as of this encounter
--- OUTSIDE RECORDS SUMMARY | 2021-12-17 09:41 | XMS_ITS | Encounter Summary ---
:1940 Author Organization [facility] Address [address] [place] [address] Care Team Providers Name Role Phone Elisha Woodward MD Primary Care Provider Reason for Visit Reason Onset Date Comments medication question 01/15/2021 Encounter Details Date Type Department Care Team Description 01/15/2021 Telephone [place]ice[place]Elisha Young, medication question [address] [facility] [place], [place] [address] [phone] [place] [address] (Wo rk) Social History Tobacco Use Types [...] Telephone Encounter - Nisha Morrison RN - 01/15/2021 1:23 PM CDT Patient called to say he would start taking the baby Aspirin. Added to med list. Telephone Encounter - Elisha Wodoward MD - 01/15/2021 1:21 PM CDT I removed both meds from his list Telephone Encounter - Nisha Morrison RN - 01/15/2021 12:58 PM CDT Patient wanted to let you know he hasn't been taking the iron supplement or the baby Aspirin. Telephone Encounter - Arti Amaya - 01/15/2021 12:20 PM CDT Pt called asking to talk with a nurse about a medication question. Please call Pt at [phone] documented in this encounter Plan of Treatment Not on filedocumented as of this encounter Visit Diagnoses Not on filedocumented in this encounter Care Teams Mold Repair Technician Relationship Specialty Start Date End Date Elisha Woodward MD PCP - General 01/01/[address] [place] [address] documented as of this encounter
--- OUTSIDE RECORDS SUMMARY | 2021-12-17 09:41 | XMS_ITS | Encounter Summary ---
:[address] [facility] Address [address] [place] [address] Care Team Providers Name Role Phone None, Pcp Primary Care Provider Unavailable Encounter Details Date Type Department Care Team Description 10/15/2020 Telephone [place] Elisha Woodward MD [address] [facility] [address] [place], [place] [address] [place], [place] [phone] (Wo rk) Social History Tobacco Use Types [...] this encounter Miscellaneous Notes Telephone Encounter - Aliza Renee - 10/23/2020 9:14 AM CDT Patient scheduled. Telephone Encounter - Aliza Renee - 10/16/2020 9:21 AM CDT Left message. Telephone Encounter - Nisha Morrison RN - 10/16/2020 8:16 AM CDT Please call patient to schedule a results review from his endoscopy/colonoscopy per Dr. Woodward. documented in this encounter Plan of Treatment Not on filedocumented as of this encounter Visit Diagnoses Not on filedocumented in this encounter Care Teams Associate Program Manager Relationship Specialty Start Date End Date None, Pcp PCP - General Shutdown Coordinator 03/29/20 12/31/20 [address] [place] [address] documented as of this encounter
--- OUTSIDE RECORDS SUMMARY | 2021-12-17 09:41 | XMS_ITS | Encounter Summary ---
:1940 Author Organization [facility] Address [address] [place] [address] Care Team Providers Name Role Phone None, Pcp Primary Care Provider Unavailable Reason for Visit Reason Onset Date Comments med questions 09/13/2020 Encounter Details Date Type Department Care Team Description 09/13/2020 Telephone [place] None, Pcp med questions [address] [place], [place] [address] [place], [place] [phone] [address] Social History Tobacco Use Types Packs/Day [...] Telephone Encounter - Guillermina Bradford LPN - 09/13/2020 10:05 AM CDT th or 29 he is going to have his colonoscopy. He needs to be off Plavix informed him that he is not on that. He was informed to stop aspirin and he was already told to do that. Telephone Encounter - Arti Amaya - 09/13/2020 9:38 AM CDT Pt called asking to talk with a nurse with some medication questions. Please call Pt at [phone] advise. documented in this encounter Plan of Treatment Not on filedocumented as of this encounter Visit Diagnoses Not on filedocumented in this encounter Care Teams Mobile Home Lot Utility Worker Relationship Specialty Start Date End Date None, Pcp PCP - General Admitting Counselor 03/29/20 12/31/20 [address] [place] [address] documented as of this encounter
--- OUTSIDE RECORDS SUMMARY | 2021-12-17 09:42 | XMS_ITS | Encounter Summary ---
:1940 Author Organization [facility] Address [address] [place] [address] Care Team Providers Name Role Phone None, Pcp Primary Care Provider Unavailable Encounter Details Date Type Department Care Team Description 07/21/2020 Immunization Family Medicine [address] [place] [address] Social History Tobacco Use Types Packs/Day Years [...] on filedocumented in this encounter Care Teams Vp Marketing Relationship Specialty Start Date End Date None, Pcp PCP - General Comber Fixer 03/29/20 12/31/20 [address] [place] [address] documented as of this encounter
--- OUTSIDE RECORDS SUMMARY | 2021-12-17 09:42 | XMS_ITS | Encounter Summary ---
:1940 Author Organization [facility] Address [address] [place] [address] Care Team Providers Name Role Phone Laila Loco APRN, IRA Primary Care Provider [phone] Reason for Visit Reason Onset Date Comments fax 10/05/2019 Encounter Details Date Type Department Care Team Description 10/05/2019 Telephone [place] Elisha Woodward MD fax [address] [facility] [address] [place], [place] [address] [place], [place] [phone] (Wo rk) Social History Tobacco Use Types [...] Telephone Encounter - Nisha Morrison RN - 10/06/2019 9:49 AM CDT RN went through all of his medications and he is taking them as prescribed. He uses [facility] in [place] for a pharmacy. He stated he isn't having any side effects and his appetite is fine, he denies loosing weight. Patient will call back if he has any concerns or decides who he'd like to see. Telephone Encounter - Elisha Woodward MD - 10/05/2019 3:55 PM CDT I reviewed the last few notes and labs/xrays on Obey. Rajan last saw him 07/2019 and there was some loss of appetite and some concern regarding his weight. Call Obey and see if he is taking his medications as prescribed and ask him how his appetite is and if he is still losing any weight. If any concerns then would recommend that he comes in for a clinic visit to review everything and to discuss if other evaluations should be considered primarily a possible CT scan of his abdomen if he is still losing weight or has loss of appetite. Telephone Encounter - Nisha Morrison RN - 10/05/2019 2:31 PM CDT [employer] faxed that the patient's Metoprolol 25mg has not been filled regularly. Last Rx was written 08/2018. Please advise. documented in this encounter Plan of Treatment Not on filedocumented as of this encounter Visit Diagnoses Not on filedocumented in this encounter Care Teams Product Merchandiser Relationship Specialty Start Date End Date Laila Loco APRN, HEAD WRESTLING COACH PCP - General 12/09/17 01/10/20 [address] [place], [place] [address] documented as of this encounter
--- OUTSIDE RECORDS SUMMARY | 2021-12-17 09:42 | XMS_ITS | Encounter Summary ---
:1940 Author Organization [facility] Address [address] [place] [address] Care Team Providers Name Role Phone Laila Loco APRN, HORSER UP Primary Care Provider [phone] Encounter Details Date Type Department Care Team Description 06/28/2019 Lab [place]ough [address] [place], [place] [address] Social History Tobacco Use Types [...] Diagnosis Comme nts CBC BRANCH OFFICE Routine 06/28/2019 11:22 AM Cough Res ults for this W/DIFF SKIDDER LOADER procedure are i n the results section. documented in this encounter Results (ABNORMAL) CBC Branch Off w/Diff (06/28/2019 11:22 AM SKIDDER LOADER) [facility] gist Method Time Signature WBC 7.1 3.5 - 10.5 06/28/2019 [facility] [place] K/uL 1:04 PM SKIDDER LOADER [place] RBC 4.87 4.30 - 06/28/2019 [facility] [place] 5.70 M/uL 1:04 PM SKIDDER LOADER [place] Hemoglobin 14.6 13.5 - 06/28/2019 [facility] 17.5 g/dL 1:04 PM SKIDDER LOADER [place] Hematocrit 44.6 38.0 - 06/28/2019 [facility] 50.0 % 1:04 PM SKIDDER LOADER [place] Platelets 221 150 - 450 06/28/2019 [facility] [place] K/uL 1:04 PM SKIDDER LOADER [place] MCV 91.6 81.2 - 06/28/2019 [facility] [place] 95.1 fL 1:04 PM SKIDDER LOADER [place] MCH 30.0 26.0 - 06/28/2019 [facility] [place] 32.0 pg 1:04 PM SKIDDER LOADER [place] MCHC 32.7 32.0 - 06/28/2019 [facility] 36.0 g/dL 1:04 PM SKIDDER LOADER [place] RDW 14.5 11.8 - 06/28/2019 [facility] 15.6 % 1:04 PM SKIDDER LOAD[place] Lymphocytes % 18.9 18.0 - 06/28/2019 [facility] 45.0 % 1:04 PM SKIDDER LOADER [place] Mid-size Cells 5.6 3.3 - 10.1 06/28/2019 [facility] % 1:04 PM SKIDDER LOADER [place] Granulocytes/Urszula 75.5 (H) 45.8 - 06/28/2019 [facility] trophils 73.7 % 1:04 PM SKIDDER LOADER [place] Lymphocytes 1.3 0.9 - 2.9 06/28/2019 [facility] Absolute K/uL 1:04 PM SKIDDER LOAD[place] MIDS Absolute 0.4 0.2 - 0.8 06/28/2019 [facility] K/uL 1:04 PM SKIDDER LOADER [place] Granulocytes/Urszula 5.4 2.1 - 8.7 06/28/2019 [facility] trophils K/uL 1:04 PM SKIDDER LOADER [place] Absolute Specimen Anatomical Collection Method Collection Time Receive d Time (Source) Location / / Volume Laterality Blood 06/28/2019 11:22 06/28/2019 AM SKIDDER LOADER 11:22 AM SKIDDER LOADER Laila Loco APRN, HORSER UP LAB BLOOD ORDERABLES Performing Organization Address City/State/ZIP Code Phon e Number [facility] [place] [address] [place] [address] documented in this encounter Visit Diagnoses Diagnosis Cough documented in this encounter Care Teams Manager Behavior Relationship Specialty Start Date End Date Laila Loco APRN, HORSER UP PCP - General 12/09/17 01/10/[address] [place] [address] [place] [address] documented as of this encounter
--- OUTSIDE RECORDS SUMMARY | 2021-12-17 09:42 | XMS_ITS | Encounter Summary ---
:1940 Author Organization [facility] Address [address] [place] [address] Care Team Providers Name Role Phone None, Pcp Primary Care Provider Unavailable Reason for Visit Reason Comments Wants cholesterol checked Encounter Details Date Type Department Care Team Description 08/21/2020 Office Visit Elisha Young Hyperlipidemia, unspecified hyperlipidemia type (Primary Dx); [address] [place] Screening for deficiency anemia; [place] [address] Essential h ypertension; [address] [place] [address] Diabetes mellitus screening [phone] [place] [address] Social History Tobacco Use Types Packs/Day Years [...] Sign Reading Time Taken Comments Blood Pressure 132/72 08/21/2020 9:40 AM CDT Pulse 72 08/21/2020 9:40 AM CDT Temperature 35.9 ??C (96.7 ??F) 08/21/2020 9:40 AM CDT Respiratory Rate 12 08/21/2020 9:40 AM CDT Oxygen Saturation 93% 08/21/2020 9:40 AM CDT Inhaled Oxygen Concentration - - Weight 72.1 kg (159 lb) 08/21/2020 9:40 AM CDT Height 167.4 cm (5' 5.91) 08/21/2020 9:40 AM CDT Body Mass Index 25.74 08/21/2020 9:40 AM CDT documented in this encounter Progress Notes Elisha Woodward MD - 08/21/2020 9:40 AM CDT Estab Patient Visit Subjective Patient ID: Obey Vines is a 80 y.o. male. HPI the patient is here today because he wanted to get some laboratory tests. The patient is our 80-year-old gentleman who I last saw a few months ago in the office for cerumen impaction. His history is well-documented and I did review his chart online after the patient left. Is important to note that he has a history of carotid endarterectomy secondary to peripheral vascular disease this however was 20 years ago according to the chart notes. He has however had some atherosclerotic vascular disease as required at least 2 stents approximately 2 years ago. He does not need Plavix anymore which he states he is not currently taking but he should continue with his Lipitor 80 mg once daily and he has been placed on Zetia 10 mg daily from his aviculturist. His other medicationsinclude a small amount of metoprolol 25 mg daily as well as Protonix 40 mg daily. Now that he is offof the Plavix we could switch him to Prilosec or other medications as he needs to. He also has nitroglycerin at home but he has had no need to take it. He is not here asking for any medications at this moment but he was aware that he has not had his cholesterol checked for quite some time and so he is fasting at this time and will get his lipid panel fasting blood sugar and CBC acquired today. The patient did not have any particular acute questions asked at this time Review of Systems he is not currently having fevers chills headaches visual change. He does have hearing loss but that is normal for him. No particular concerns about shortness of breath chest pain palpitations no appetite disturbance no nausea or throwing up no change of bowel or bladder functions. Objective Physical Exam he is alert he appears comfortable vital signs show the following Blood pressure 132/72 pulse 72 regular rate and rhythm temp 96.7 current weight 159 pounds O2 sats 93% on room air His pupils are equal conjunctiva clear Tongue is moist throat is clear Neck no adenopathy no thyromegaly no carotid bruits no masses Lungs are clear without wheeze rales or rhonchi Cardiac is regular rate and rhythm without heart murmur Extremities have no edema or fluid retention CBC BMP and lipid functions will be done today. Assessment/Plan Diagnoses and all orders for this visit: Hyperlipidemia, unspecified hyperlipidemia type - Lipid panel; Future Screening for deficiency anemia Essential hypertension - Basic metabolic panel; Future Diabetes mellitus screening - Basic metabolic panel; Future The overall assessment includes the following Atherosclerotic cardiovascular disease Peripheral vascular disease primarily in the carotid system Hyperlipidemia mixed type Hypertension essential History of prediabetes The plan at this time is to get appropriate laboratory testing and make adjustments as needed. documented in this encounter Plan of Treatment Not on filedocumented as of this encounter Results (ABNORMAL) Basic metabolic panel (08/21/2020 10:31 AM CDT) P athologist Signature Sodium 142 135 - 145 08/21/2020 [facility] [place] mmol/L 12:57 PM CDT [place] Potassium 3.8 3.5 - 5.1 08/21/2020 [facility] [place] mmol/L 12:57 PM CDT [place] Comment: . Chloride 105 98 - 107 mmol/L 08/21/2020 12:57 PM CDT [facility] [place] Comment: . CO2 27 22 - 31 mmol/L 08/21/2020 12:57 PM CDT [facility] [place] Comment: . Creatinine 1.0 0.6 - 1.4 mg/dL 08/21/2020 12:57 PM CDT [facility] [place] Comment: . BUN 9 5 - 25 mg/dL 08/21/2020 12:57 PM CDT [facility] [place] Comment: . Glucose 105 (H) 70 - 100 mg/dL 08/21/2020 12:57 PM [facility] C [place] CDT Calcium, Total,S 8.7 8.4 - 10.2 mg/dL 08/21/2020 12:57 PM [facility] [place] CDT Comment: . Fasting? Yes 08/21/2020 10:35 AM CDT [facility] [place] Specimen Anatomical Collection Method Collection Time Receive d Time (Source) Location / / Volume Laterality Blood 08/21/2020 10:31 08/21/2020 AM CDT 10:35 AM CDT D. Dont[place] Woodward MD LAB BLOOD ORDERABLES Performing Organization Address City/State/ZIP Code Phon e Number [facility] [place] [address] [place] [address] (ABNORMAL) Lipid panel (08/21/2020 10:31 AM CDT) athologist Signature Cholesterol 166 0 - 199 08/22/2020 [facility] mg/dL 2:11 PM CDT [facility] Comment: Recommended by National Cholesterol Education Program (ATP III) -------- Cholesterol Ranges -------- <200 ?Desirable 200-239 ? Borderline high >=240 ? High Triglycerides 167 (H) 0 - 149 mg/dL 08/22/2020 2:11 PM CDT [facility] Comment: -------- TRIG Ranges -------- <150 ?Normal 150-199 ? Borderline high 200-499 ? High >=500 ? Very high HDL 37 (L) 40 - 250 mg/dL 08/22/2020 2:11 PM CDT [facility] Comment: -------- HDL Ranges -------- <40 ?Low 40-59 ?Normal >=60 ? Optimal LDL Calculated 96 0 - 99 mg/dL 08/22/2020 2:11 PM CDT [facility] Comment: -------- LDL Ranges -------- <100 ? Optimal 100-129 ?Near optimal/above op timal 130-159 ?Borderline high 160-189 ?High >=190 ?Very high Specimen Anatomical Collection Method Collection Time Receive d Time (Source) Location / / Volume Laterality Blood 08/21/2020 10:31 08/22/2020 AM CDT 12:50 PM CDT D. D[place] Woodward MD LAB BLOOD ORDERABLES Performing Organization Address City/State/ZIP Code Phon e Number [facility] [address] [place] [address] documented in this encounter Visit Diagnoses Diagnosis Hyperlipidemia, unspecified hyperlipidem ia type - Primary Screening for deficiency anemia Screening for other and unspecified defi ciency anemia Essential hypertension Unspecified essential hypertension Diabetes mellitus screening Screening for diabetes mellitus documented in this encounter Care Teams Pairer Odds Relationship Specialty Start Date End Date None, Pcp PCP - General Desk Assistant 03/29/20 12/31/20 [address] [place] [address] documented as of this encounter
--- OUTSIDE RECORDS SUMMARY | 2021-12-17 09:42 | XMS_ITS | Encounter Summary ---
:1940 Author Organization [facility] Address [address] [place] [address] Care Team Providers Name Role Phone Laila Loco APRN, IRA Primary Care Provider [phone] Encounter Details Date Type Department Care Team Description 06/28/2019 Travel Social History Tobacco Use Types Packs/Day Years [...] on filedocumented in this encounter Care Teams In House Cra Relationship Specialty Start Date End Date Laila Loco, COMMUNICATIONS TECHNOLOGIST, PRESSER ALL AROUND PCP - General 12/09/17 01/10/20 [address] [facility] [place] [address] documented as of this encounter
--- OUTSIDE RECORDS SUMMARY | 2021-12-17 09:42 | XMS_ITS | Encounter Summary ---
:1940 Author Organization [facility] Address [address] [place] [address] Care Team Providers Name Role Phone None, Pcp Primary Care Provider Unavailable Encounter Details Date Type Department Care Team Description 08/27/2020 Orders Only Elisha Young Colon cancer screening (Prim irvin Dx); [address] [place] Anemia, unspecified type [place], [place] [address] [address] [facility] [address] [place] [address] Social History Tobacco Use Types Packs/Day Years [...] Special screening for malignant neoplasm s, colon Anemia, unspecified type documented in this encounter Care Teams Pecan Grower Relationship Specialty Start Date End Date None, Pcp PCP - General Penciller 03/29/20 12/31/20 [address] [place] [address] documented as of this encounter
--- OUTSIDE RECORDS SUMMARY | 2021-12-17 09:42 | XMS_ITS | Encounter Summary ---
:1940 Author Organization [facility] Address [address] [place] [address] Care Team Providers Name Role Phone Laila Loco APRN, A&P MECHANIC Primary Care Provider [phone] Reason for Visit Reason Onset Date Comments Med Refill 11/26/2019 Encounter Details Date Type Department Care Team Description 11/26/2019 Refill Wendy Pillai Atherosclerosis of eagle co ronary artery without angina pectoris, unspecified whether eagle or transplanted heart; [address] Rehan Varghese MD Gastroesophageal reflux dise ase without esophagitis; [place] [address] Hyperlipidemia, unspecified hyperlipidemia type [phone] Social History Tobacco Use Types Packs/Day Years [...] this encounter Miscellaneous Notes Telephone Encounter - Ellen Delgado RN - 11/26/2019 9:50 AM CDT Please advise-pt seen in [facility] Telephone Encounter - Khushbu Anthony - 11/26/2019 9:15 AM CDT Pt calls stating he was told by Dameon to contact Dr. Rosenthal for his med refills, since Rajan Claudy is no longer with [facility]. Pt is going to be out soon and is wondering if Dr. Rosenthal could fill this until he can get in to see her. Please advise. documented in this encounter Plan of Treatment Not on filedocumented as of this encounter Visit Diagnoses Diagnosis Atherosclerosis of eagle coronary arter y without angina pectoris, unspecified whether eagle or transplanted heart Gastroesophageal reflux disease without esophagitis Esophageal reflux Hyperlipidemia, unspecified hyperlipidem ia type documented in this encounter Care Teams Heel Painter Relationship Specialty Start Date End Date Laila Loco, RESOURCE AGENT, A&P MECHANIC PCP - General 12/09/17 01/10/[address] [place] [address] documented as of this encounter
--- OUTSIDE RECORDS SUMMARY | 2021-12-17 09:42 | XMS_ITS | Encounter Summary ---
:1940 Author Organization [facility] Address [address] [place] [address] Care Team Providers Name Role Phone Unavailable Primary Care Provider Unavailable Reason for Visit Reason Comments Med Refill Encounter Details Date Type Department Care Team Description 03/07/2020 Refill Wendy Pillai Gastroesophageal reflux [address] [facility] EMD Lara disease without esophagitis [place] [address] Social History Tobacco Use Types Packs/Day Years [...] this encounter Miscellaneous Notes Telephone Encounter - Niurka Faith RN - 03/07/2020 1:59 PM CST Please advise [employer] Telephone Encounter - Ellen Delgado RN - 03/07/2020 1:38 PM CST Margarito hanna patient--please advise on appointment/refill [employer] Telephone Encounter - Isabel Cardoso MA - 03/07/2020 11:45 AM CST Last visit in provider department: 07/06/2019 Last visit requested medication was discussed: 04/22/2019- Annual exam Upcoming appointment with provider: None Last Rx: 11/26/2019- 90 with no refills Requested Prescriptions Pending Prescriptions Disp Refills ??? pantoprazole (PROTONIX) 40 MG EC tablet [Pharmacy Med Name: Pantoprazole Sodium 40 MG Oral Tablet Delayed Release] 90 tablet 0 Sig: TAKE 1 TABLET BY MOUTH ONCE DAILY BEFORE BREAKFAST Patient is due for an appointment. Advise your PSR/Nurse if you want them to assist patient with scheduling. Thank you! [employer] documented in this encounter Plan of Treatment Not on filedocumented as of this encounter Visit Diagnoses Diagnosis Gastroesophageal reflux disease without esophagitis Esophageal reflux documented in this encounter
--- OUTSIDE RECORDS SUMMARY | 2021-12-17 09:42 | XMS_ITS | Encounter Summary ---
:1940 Author Organization [facility] Address [address] [place] [address] Care Team Providers Name Role Phone None, Pcp Primary Care Provider Unavailable Encounter Details Date Type Department Care Team Description 08/27/2020 Orders Only [place] [facility]isha Woodward MD [address] [facility] [address] [place], [place] [address] [place], [place] [phone] (Wo rk) Social History Tobacco Use Types [...] on filedocumented in this encounter Care Teams Crusher Supervisor Relationship Specialty Start Date End Date None, Pcp PCP - General Communicable Disease Specialist 03/29/20 12/31/20 [address] [place] [address] documented as of this encounter
--- OUTSIDE RECORDS SUMMARY | 2021-12-17 09:42 | XMS_ITS | Encounter Summary ---
:1940 Author Organization [facility] Address [address] [place] [address] Care Team Providers Name Role Phone None, Pcp Primary Care Provider Unavailable Encounter Details Date Type Department Care Team Description 08/29/2020 Lab [place] Colon cancer screening; [address] Anemia, unspecified type [place] [address] Social History Tobacco [...] encounter Visit Diagnoses Diagnosis Colon cancer screening Special screening for malignant neoplasm s, colon Anemia, unspecified type documented in this encounter Care Teams Television Repairer Relationship Specialty Start Date End Date None, Pcp PCP - General Mingle Operator 03/29/20 12/31/20 [address] [place] [address] documented as of this encounter
--- OUTSIDE RECORDS SUMMARY | 2021-12-17 09:42 | XMS_ITS | Encounter Summary ---
:1940 Author Organization [facility] Address [address] [place] [address] Care Team Providers Name Role Phone None, Pcp Primary Care Provider Unavailable Reason for Referral Consultation (Routine) - Closed Specialty Diagnoses / Procedures Referred By Contact Refer red To Contact Otolaryngology Diagnoses Impacted cerumen of left ear Aydin Calix MD Ear Nose Throat [address] [place], [place] [id number] Referral ID Status Reason Start Date Expiration Date Visits V isits Requested Authorized [id number] Closed Specialty 04/04/2020 04/04/2021 1 1 Services Required Scheduling Instructions Please call the ENT Application Specialist desk at [phone] to schedule an appointment. PRINTING MACHINE OPERATOR Reason for Visit Reason Comments Ear Problem Follow up from last week, rhonda villaseñor Encounter Details Date Type Department Care Team Description 04/04/2020 Office Visit Aydin Gil, Impacted cerumen of [address] left ear (Primary Dx) [place], [place] [address] [place] [address] [place], [place] [phone] Social History Tobacco Use Types Packs/Day Years [...] Sign Reading Time Taken Comments Blood Pressure 128/72 04/04/2020 9:55 AM BOX PRINTING MACHINE OPERATOR Pulse 69 04/04/2020 9:55 AM BOX PRINTING MACHINE OPERATOR Temperature 36.9 ??C (98.4 ??F) 04/04/2020 9:55 AM BOX PRINTING MACHINE OPERATOR Respiratory Rate 16 04/04/2020 9:55 AM BOX PRINTING MACHINE OPERATOR Oxygen Saturation 96% 04/04/2020 9:55 AM BOX PRINTING MACHINE OPERATOR Inhaled Oxygen Concentration - - Weight 70 kg (154 lb 6.4 oz) 04/04/2020 9:55 AM BOX PRINTING MACHINE OPERATOR Height - - Body Mass Index 24.99 03/29/2020 10:39 AM BOX PRINTING MACHINE OPERATOR documented in this encounter Patient Instructions Patient InstructionsAydin Calix MD - 04/04/2020 10:00 AM CST Images from the original note were not included. Patient Education Earwax Buildup, Adult The ears produce a substance called earwax that helps keep bacteria out of the ear and protects the skin in the ear canal. Occasionally, earwax can build up in the ear and cause discomfort or hearing loss. What increases the risk? This condition is more likely to develop in people who: ?? Are male. ?? Are elderly. ?? Naturally produce more earwax. ?? Clean their ears often with cotton swabs. ?? Use earplugs often. ?? Use in-ear headphones often. ?? Wear hearing aids. ?? Have narrow ear canals. ?? Have earwax that is overly thick or sticky. ?? Have eczema. ?? Are dehydrated. ?? Have excess hair in the ear canal. What are the signs or symptoms? Symptoms of this condition include: ?? Reduced or muffled hearing. ?? A feeling of fullness in the ear or feeling that the ear is plugged. ?? Fluid coming from the ear. ?? Ear pain. ?? Ear itch. ?? Ringing in the ear. ?? Coughing. ?? An obvious piece of earwax that can be seen inside the ear canal. How is this diagnosed? This condition may be diagnosed based on: ?? Your symptoms. ?? Your medical history. ?? An ear exam. During the exam, your health care provider will look into your ear with an instrument called an otoscope. You may have tests, including a hearing test. How is this treated? This condition may be treated by: ?? Using ear drops to soften the earwax. ?? Having the earwax removed by a health care provider. The health care provider may: ? Flush the ear with water. ? Use an instrument that has a loop on the end (curette). ? Use a suction device. ?? Surgery to remove the wax buildup. This may be done in severe cases. Follow these instructions at home: ?? Take [id number] and prescription medicines only as told by your health care provider. ?? Do not put any objects, including cotton swabs, into your ear. You can clean the opening of your ear canal with a washcloth or facial tissue. ?? Follow instructions from your health care provider about cleaning your ears. Do not over-clean your ears. ?? Drink enough fluid to keep your urine clear or pale yellow. This will help to thin the earwax. ?? Keep all follow-up visits as told by your health care provider. If earwax builds up in your ears often or if you use hearing aids, consider seeing your health care provider for routine, preventive ear cleanings. Ask your health care provider how often you should schedule your cleanings. ?? If you have hearing aids, clean them according to instructions from the customs compliance analyst and your health care provider. Contact a health care provider if: ?? You have ear pain. ?? You develop a fever. ?? You have blood, pus, or other fluid coming from your ear. ?? You have hearing loss. ?? You have ringing in your ears that does not go away. ?? Your symptoms do not improve with treatment. ?? You feel like the room is spinning (vertigo). Summary ?? Earwax can build up in the ear and cause discomfort or hearing loss. ?? The most common symptoms of this condition include reduced or muffled hearing and a feeling of fullness in the ear or feeling that the ear is plugged. ?? This condition may be diagnosed based on your symptoms, your medical history, and an ear exam. ?? This condition may be treated by using ear drops to soften the earwax or by having the earwax removed by a health care provider. ?? Do not put any objects, including cotton swabs, into your ear. You can clean the opening of your ear canal with a washcloth or facial tissue. This information is not intended to replace advice given to you by your health care provider. Make sure you discuss any questions you have with your health care provider. Document Released: 05/29/2005 Document Revised: 04/02/2018 Document Reviewed: 07/02/2017 [employer] Interactive Patient Education ?? 2020 [employer]. PRINTING MACHINE OPERATOR documented in this encounter Progress Notes Aydin Calix MD - 04/04/2020 10:00 AM CST Estab Patient Visit Subjective Patient ID: Obey Vines is a 80 y.o. male. Chief Complaint Patient presents with ??? Ear Problem Follow up from last week, ear lavage HPI Here for ear wax follow up. He has been using the ear drops prescribed at last visit about 1 week ago. At that visit he had irrigation of the ear canals. His also squirted some water in there he says maybe a little bit of wax came out. He would like irrigation of the ears again today. He wears hearing aids and had them evaluated recently but was told he had to have his ears cleaned before they could adjust anything. Has been having trouble with them ringing. He says he drinks plenty of water. ROS ROS done as noted in HPI Objective Visit Vitals BP 128/72 (BP Location: Left arm, Patient Position: Sitting) Pulse 69 Temp 36.9 ??C (98.4 ??F) (Temporal) Resp 16 Physical Exam GEN: well appearing, no acute distress, vital signs reviewed Ears: right ear with small amount of debris cleared with irrigation and curette, there is moderate irritation of the right external canal. Left ear with substantial impaction that is deeper. I explained likely need for specialist referral for removal but patient wanted to try irrigation again and explained risks of this. Irrigation performed and some debris cleared with curette however substantial debris remained deep approximately at TM. Assessment/Plan Diagnosis Plan 1. Impacted cerumen of left ear Ambulatory referral to ENT Advised patient to have ENT remove the deep debris in his left ear. No home instillation of drops orirrigation. He already has irritation of his right outer ear likely secondary to irrigation. Return if symptoms worsen or fail to improve. Note created using voice dictation software. PRINTING MACHINE OPERATOR documented in this encounter Plan of Treatment Scheduled Referrals Name Type Priority Associated Order Schedule Diagnoses Ambulatory referral Outpatient Referral Routine Impacted cerum en of Ordered: to ENT left ear 04/04/2020 documented as of this encounter Visit Diagnoses Diagnosis Impacted cerumen of left ear - Primary Impacted cerumen documented in this encounter Care Teams Axminster Rug Setter Relationship Specialty Start Date End Date None, Pcp PCP - General Bioinformatics Research Technician 03/29/20 12/31/[address] [place] [phone] documented as of this encounter
--- OUTSIDE RECORDS SUMMARY | 2021-12-17 09:42 | XMS_ITS | Encounter Summary ---
:1940 Author Organization [facility] Address [address] [place] [address] Care Team Providers Name Role Phone Laila Loco ELECTION CLERK, CULTURAL ANTHROPOLOGY PROFESSOR Primary Care Provider [phone] Encounter Details Date Type Department Care Team Description 07/06/2019 Orders Only Margarito Love Laila Loco Constipation, [address] M, ELECTION CLERK, CULTURAL ANTHROPOLOGY PROFESSOR unspecified Margarito Love, YARIEL [address] constipation type [address] [place] [address] (Primary Dx) [phone] Social History Tobacco Use Types Packs/Day Years [...] as of this encounter Visit Diagnoses Diagnosis Constipation, unspecified constipation t ype - Primary documented in this encounter Care Teams Cement Cutter Relationship Specialty Start Date End Date Laila Loco, ELECTION CLERK, CULTURAL ANTHROPOLOGY PROFESSOR PCP - General 12/09/17 01/10/20 [address] [facility] [place] [address] documented as of this encounter
--- OUTSIDE RECORDS SUMMARY | 2021-12-17 09:42 | XMS_ITS | Encounter Summary ---
:1940 Author Organization [facility] Address [address] [place] [address] Care Team Providers Name Role Phone Laila Loco APRN, MECHANICAL DESIGN ENGINEER Primary Care Provider [phone] Encounter Details Date Type Department Care Team Description 07/06/2019 Lab Margarito Love Decreased appetite [address] [place], [place] [address] Social History Tobacco Use [...] encounter Procedures Procedure Name Priority Date/Time Associated Comments Diagnosis GLOMERULAR FILTRATION Routine 07/06/2019 9:16 AM Decreased carlos enrique etite Results for this RATE MANAGER LOCATION procedure are i n the results section. CBC BRANCH OFFICE Routine 07/06/2019 9:16 AM Decreased appetit e Results for this W/DIFF MANAGER LOCATION procedure are i n the results section. SEDIMENTATION RATE, Routine 07/06/2019 9:16 AM Decreased appet ite Results for this AUTOMATED MANAGER LOCATION procedure are i n the results section. C-REACTIVE PROTEIN Routine 07/06/2019 9:16 AM Decreased appeti te Results for this MANAGER LOCATION procedure are i n the results section. LIPASE Routine 07/06/2019 9:16 AM Decreased appetite Res ults for this MANAGER LOCATION procedure are i n the results section. AMYLASE Routine 07/06/2019 9:16 AM Decreased appetite Res ults for this MANAGER LOCATION procedure are i n the results section. COMPREHENSIVE Routine 07/06/2019 9:16 AM Decreased appetite Re sults for this METABOLIC PANEL MANAGER LOCATION procedure ar e in the results section. documented in this encounter Results (ABNORMAL) Glomerular filtration rate (GFR) (07/06/2019 9:16 AM MANAGER LOCATION) athologist Signature GFR 58 (A) 07/06/2019 [facility] 1:32 PM MANAGER LOCATION CENTER LAB[facility]ATORY >60 07/06/2019 [facility] Congolese GFR 1:32 PM MANAGER LOCATION CENTER LABORATORY Comment: GFR calculated from serum creatinine v alue Chronic Kidney Disease less than 60 mL/m in/1.73 m2 Kidney Failure less than 15 mL/min/1.73 m2 Note: effective 09/17/06 IDMS-Traceable MDRD Study Equation used. Specimen Anatomical Collection Method Collection Time Receive d Time (Source) Location / / Volume Laterality 07/06/2019 9:16 AM 0 9:16 MANAGER LOCATION AM MANAGER LOCATION Laila Loco APRN, MECHANICAL DESIGN ENGINEER LAB BLOOD ORDERABLES Performing Organization Address City/State/ZIP Code Phon e Number [facility] [address] [place] [phone] CBC Branch Off w/Diff (07/06/2019 9:16 AM MANAGER LOCATION) athologist Signature WBC 7.1 3.5 - 10.5 07/06/2019 [facility] [place] K/uL 9:33 AM MANAGER LOCATION [place] RBC 5.12 4.30 - 07/06/2019 [facility] [place] 5.70 M/uL 9:33 AM MANAGER LOCATION [place] Hemoglobin 15.5 13.5 - 07/06/2019 [facility] [place] 17.5 g/dL 9:33 AM MANAGER LOCATION [place] Hematocrit 46.5 38.0 - 07/06/2019 [facility] [place] 50.0 % 9:33 AM MANAGER LOCATION [place] Platelets 242 150 - 450 07/06/2019 [facility] [place] K/uL 9:33 AM MANAGER LOCATION [place] MCV 90.8 81.2 - 07/06/2019 [facility] [place] 95.1 fL 9:33 AM MANAGER LOCATION [place] MCH 30.3 26.0 - 07/06/2019 [facility] [place] 32.0 pg 9:33 AM MANAGER LOCATION [place] MCHC 33.3 32.0 - 07/06/2019 [facility] [place] 36.0 g/dL 9:33 AM MANAGER LOCATION [place] RDW 14.5 11.8 - 07/06/2019 [facility] [place] 15.6 % 9:33 AM MANAGER LOCATION [place] Lymphocytes % 19.8 18.0 - 07/06/2019 [facility] [place] 45.0 % 9:33 AM MANAGER LOCATION [place] Mid-size Cells 9.1 3.3 - 10.1 07/06/2019 [facility] [place] % 9:33 AM MANAGER LOCATION [place] Granulocytes/Urszula 71.1 45.8 - 07/06/2019 [facility] [place] trophils 73.7 % 9:33 AM MANAGER LOCATION [place] Lymphocytes 1.4 0.9 - 2.9 07/06/2019 [facility] [place] Absolute K/uL 9:33 AM MANAGER LOCATION [place] MIDS Absolute 0.6 0.2 - 0.8 07/06/2019 [facility] [place] K/uL 9:33 AM MANAGER LOCATION [place] Granulocytes/Urszula 5.1 2.1 - 8.7 07/06/2019 [facility] [place] trophils K/uL 9:33 AM MANAGER LOCATION [place] Absolute Specimen Anatomical Collection Method Collection Time Receive d Time (Source) Location / / Volume Laterality Blood 07/06/2019 9:16 AM 0 9:21 MANAGER LOCATION AM MANAGER LOCATION Laila Loco SALON SALES CONSULTANT, MECHANICAL DESIGN ENGINEER LAB BLOOD ORDERABLES Performing Organization Address City/State/ZIP Code Phon e Number [facility] [place] [address] [place] [address] (ABNORMAL) Comprehensive metabolic panel (07/06/2019 9:16 AM [facility]) [facility] gist Method Time Signature Total Protein 8.6 (H) 6.3 - 8.2 07/06/2019 [place] g/dL 1:32 PM [facility] Albumin, Serum 4.5 3.5 - 5.0 07/06/2019 [place] g/dL 1:32 PM [facility] Total Bilirubin 1.3 (H) 0.1 - 1.0 07/06/2019 [place] mg/dL 1:32 PM [facility] AST 26 8 - 48 U/L 07/06/2019 [place] 1:32 PM [facility] Alkaline 134 (H) 38 - 128 07/06/2019 [place] Phosphatase U/L 1:32 PM [facility] ALT (SGPT) 21 0 - 49 U/L 07/06/2019 [place] 1:32 PM [facility] Sodium 140 135 - 145 07/06/2019 [place] mEq/L 1:32 PM [facility] Potassium 4.2 3.5 - 5.1 07/06/2019 [place] mEq/L 1:32 PM [facility] Chloride 100 98 - 107 07/06/2019 [place] mEq/L 1:32 PM [facility] CO2 28 22 - 31 07/06/2019 [place] mmol/L 1:32 PM [facility] BUN 13 5 - 25 07/06/2019 [place] mg/dL 1:32 PM [facility] Creatinine 1.2 0.6 - 1.4 07/06/2019 [place] mg/dL 1:32 PM [facility] Glucose 117 (H) 70 - 100 07/06/2019 [place] mg/dL 1:32 PM [facility] Calcium, Total,S 9.7 8.4 - 10.2 07/06/2019 [place] mg/dL 1:32 PM [facility] Fasting? Yes 07/06/2019 [place] 9:21 AM [facility] Specimen Anatomical Collection Method Collection Time Receive d Time (Source) Location / / Volume Laterality Blood 07/06/2019 9:16 AM 0 MANAGER LOCATION 12:32 PM [facility] Laila Loco APRN, CNP LAB BLOOD ORDERABLES Performing Organization Address City/[facility] Phon e Number [facility] [address] [place] [phone] (ABNORMAL) Amylase (07/06/2019 9:16 AM MANAGER LOCATION) athologist Signature Amylase 173 (H) 30 - 110 07/06/2019 [facility] U/L 1:32 PM MANAGER LOCATION CENTER LAB[facility] Specimen Anatomical Collection Method Collection Time Receive d Time (Source) Location / / Volume Laterality Blood (Blood, 07/06/2019 9:16 AM 07/06/19 20 Venous) MANAGER LOCATION 12:32 PM MANAGER LOCATION Laila Loco APRN, CNP LAB BLOOD ORDERABLES Performing Organization Address [facility] Phon e Number [facility] [address] [place] [phone] Lipase (07/06/2019 9:16 AM MANAGER LOCATION) athologist [facility] Lipase 85 23 - 300 07/06/2019 [facility] U/L 1:32 PM [facility] Specimen Anatomical Collection Method Collection Time Receive d Time (Source) Location / / Volume Laterality Blood (Blood, 07/06/2019 9:16 AM 07/06/19 20 Venous) MANAGER LOCATION 12:32 PM MANAGER LOCATION Laila Loco APRN, CNP LAB BLOOD ORDERABLES Performing Organization Address [facility] e Number [facility] [address] [place] [phone] (ABNORMAL) ESR-Sed rate (07/06/2019 9:16 AM MANAGER LOCATION) athologist Signature Sed Rate 36 (H) 0 - 22 07/06/2019 [facility] mm/hr 1:40 PM MANAGER LOCATION CENTER [facility] Specimen Anatomical Collection Method Collection Time Receive d Time (Source) Location / / Volume Laterality Blood (Blood, 07/06/2019 9:16 AM 07/06/19 20 Venous) MANAGER LOCATION 12:32 PM MANAGER LOCATION Laila Loco APRN, CNP LAB BLOOD ORDERABLES Performing Organization Address City/[facility] Phon e Number [facility] [address] [place] [address] C-reactive protein (07/06/2019 9:16 AM MANAGER LOCATION) P athologist Signature CRP 2.0 0.0 - 4.9 07/06/2019 [facility] mg/L 1:32 PM MANAGER LOCATION CENTER LAB[facility]ORY Specimen Anatomical Collection Method Collection Time Receive d Time (Source) Location / / Volume Laterality Blood (Blood, 07/06/2019 9:16 AM 07/06/19 20 Venous) MANAGER LOCATION 12:32 PM MANAGER LOCATION Laila Loco APRN, CNP LAB BLOOD ORDERABLES Performing Organization Address City/State/[facility] Code Phon e Number [facility] [address] [place] [address] documented in this encounter Visit Diagnoses Diagnosis Decreased appetite Anorexia documented in this encounter Care Teams Coffee Sampler Relationship Specialty Start Date End Date Laila Loco APRN, CNP PCP - General 12/09/17 01/10/20 [address] [place] [address] documented as of this encounter
--- OUTSIDE RECORDS SUMMARY | 2021-12-17 09:42 | XMS_ITS | Encounter Summary ---
:1940 Author Organization [facility] Address [address] [place] [address] Care Team Providers Name Role Phone Laila Loco APRN, SHUTTLE REPAIRER Primary Care Provider [phone] Encounter Details Date Type Department Care Team Description 11/16/2019 Lab [place] Diabetes mellitus screening; [address] Medication monitoring encoun [place], [place] [address] Social History Tobacco Use [...] Name Priority Date/Time Associated Diagnosis Comme nts FASTING ? Routine 11/16/2019 8:19 AM Diabetes mellitus Resu lts for this CDT screening procedure are i n the results section. GLUCOSE Routine 11/16/2019 8:19 AM Diabetes mellitus Resu lts for this CDT screening procedure are i n the results section. HEPATIC FUNCTION Routine 11/16/2019 8:19 AM Medication Resul ts for this PANEL CDT monitoring encounter procedu re are in the results section. documented in this encounter Results Fasting ? (11/16/2019 8:19 AM CDT) athologist Signature Fasting? Yes 11/16/2019 [facility] 8:21 AM T CENTER LABORATORY Specimen Anatomical Collection Method Collection Time Receive d Time (Source) Location / / Volume Laterality 11/16/2019 8:19 AM 0 8:21 CDT AM CDT D. Dontrell Woodward MD LAB BLOOD ORDERABLES Performing Organization Address City/State/ZIP Code Phon e Number [facility] [address] [place] [phone] Liver panel (11/16/2019 8:19 AM CDT) athologist Signature Total Protein 7.0 6.3 - 8.2 11/16/2019 [place] g/dL 2:07 PM [facility] Albumin, Serum 4.1 3.5 - 5.0 11/16/2019 [place] g/dL 2:07 PM [facility] Total Bilirubin 1.0 0.1 - 1.0 11/16/2019 [place] mg/dL 2:07 PM [facility] Bilirubin, <0.1 0.0 - 0.3 11/16/2019 [place] Direct mg/dL 2:07 PM [facility] AST 25 8 - 48 U/L 11/16/2019 [place] 2:07 PM [facility] Alkaline 116 38 - 128 11/16/2019 [place] Phosphatase U/L 2:07 PM [facility] ALT (SGPT) 20 0 - 49 U/L 11/16/2019 [place] 2:07 PM [facility] Specimen Anatomical Collection Method Collection Time Receive d Time (Source) Location / / Volume Laterality Blood 11/16/2019 8:19 AM 0 1:02 CDT PM CDT Elisha Woodward MD LAB BLOOD ORDERABLES Performing Organization Address City/State/ZIP Code Phon e Number [facility] [address] [place] [phone] (ABNORMAL) Glucose, fasting (11/16/2019 8:19 AM CDT) athologist Signature Glucose 107 (H) 70 - 100 11/16/2019 [facility] mg/dL 2:07 PM CDT CENTER LABORATORY Specimen Anatomical Collection Method Collection Time Receive d Time (Source) Location / / Volume Laterality Blood (Blood, 11/16/2019 8:19 AM 11/16/19 20 1:02 Venous) CDT PM CDT Elisha Woodward MD LAB BLOOD ORDERABLES Performing Organization Address City/[facility]/ZIP Code Phon e Number [facility] [address] [place] [phone] documented in this encounter Visit Diagnoses Diagnosis Diabetes mellitus screening Screening for diabetes mellitus Medication monitoring encounter Encounter for therapeutic drug monitorin g documented in this encounter Care Teams Senior Service Aide Relationship Specialty Start Date End Date Laila Loco APRN, SHUTTLE REPAIRER PCP - General 12/09/17 01/10/20 100 [facility] [place] [address] documented as of this encounter
--- OUTSIDE RECORDS SUMMARY | 2021-12-17 09:42 | XMS_ITS | Encounter Summary ---
:1940 Author Organization [facility] Address [address] [place] [address] Care Team Providers Name Role Phone Laila Loco ALCOHOLISM WORKER, DISTRIBUTION LINEMAN Primary Care Provider [phone] Reason for Visit Reason Onset Date Comments refill medication 09/02/2019 Encounter Details Date Type Department Care Team Description 09/02/2019 [place] [place], refill medication [address] ALCOHOLISM WORKER, IRA [place], [place] [address] [address] [phone] [place], [place] [address] Social History Tobacco Use Types Packs/Day Years [...] this encounter Miscellaneous Notes Telephone Encounter - Elisha Woodward MD - 09/02/2019 5:19 PM CDT Noted ozzie Telephone Encounter - Wendy Rosenthal MD - 09/02/2019 1:25 PM CDT I filled it for 3 months.Wendy Rosenthal MD Telephone Encounter - Ellen Delgado RN - 09/02/2019 1:21 PM CDT Pt is at pharmacy wanting to slat pickler RX Telephone Encounter - Ellen Delgado RN - 09/02/2019 10:27 AM CDT Pt is asking for Pantoprazole to be renewed, last visit 09/2018 shows he was not taking. Pt would like 90 day supply. Pt is on his way to pharmacy now. Pt had to change pharmacy to [facility] dueto his insurance. please advise on renewal Telephone Encounter - Kanwal Zarco - 09/02/2019 9:43 AM CDT Patient is on his way to [facility] pharmacy in [facility]. (he can not use the [facility], his insurance changed) He needs his acid reflux medication. He needs this prescription send as soon aspossible. He is asking to talk to a nurse too! [phone]. documented in this encounter Plan of Treatment Not on filedocumented as of this encounter Visit Diagnoses Diagnosis Gastroesophageal reflux disease without esophagitis Esophageal reflux documented in this encounter Care Teams Street Light Inspector Relationship Specialty Start Date End Date Laila Loco APRN, DISTRIBUTION LINEMAN PCP - General 12/09/17 01/10/20 [address] [facility] [place] [address] documented as of this encounter
--- OUTSIDE RECORDS SUMMARY | 2021-12-17 09:42 | XMS_ITS | Encounter Summary ---
:1940 Author Organization [facility] Address [address] [place] [address] Care Team Providers Name Role Phone Laila Loco APRN, IRA Primary Care Provider [phone] Encounter Details Date Type Department Care Team Description 07/06/2019 Travel Social History Tobacco Use Types Packs/Day [...] on filedocumented in this encounter Care Teams Bagger Meat Relationship Specialty Start Date End Date Laila Loco, CANDY SEPARATOR HARD, CIVIL LABORATORY TECHNICIAN PCP - General 12/09/17 01/10/20 [address] [facility] [place] [address] documented as of this encounter
--- OUTSIDE RECORDS SUMMARY | 2021-12-17 09:42 | XMS_ITS | Encounter Summary ---
:1940 Author Organization [facility] Address [address] [place] [address] Care Team Providers Name Role Phone Laila Loco STRATEGIC PLANNING CONSULTANT, SAND AND GRAVEL PLANT OPERATOR Primary Care Provider [phone] Encounter Details Date Type Department Care Team Description 04/26/2019 Orders Only [place] Laila Loco, Pneumonia of right [address] STRATEGIC PLANNING CONSULTANT, SAND AND GRAVEL PLANT OPERATOR lower lobe due to [place], [place] [address] infectious organism [address] [place] [address] (HCC) (Primary Dx) [phone] Social History Tobacco Use Types Packs/Day Years [...] as of this encounter Visit Diagnoses Diagnosis Pneumonia of right lower lobe due to inf ectious organism - Primary documented in this encounter Care Teams Flying Shear Operator Relationship Specialty Start Date End Date Laila Loco, STRATEGIC PLANNING CONSULTANT, SAND AND GRAVEL PLANT OPERATOR PCP - General 12/09/17 01/10/[address] [place] [address] [place] [address] documented as of this encounter
--- OUTSIDE RECORDS SUMMARY | 2021-12-17 09:42 | XMS_ITS | Encounter Summary ---
:1940 Author Organization [facility] Address [address] [place] [address] Care Team Providers Name Role Phone None, Pcp Primary Care Provider Unavailable Reason for Visit Reason Comments Follow-up Ear cleaning Encounter Details Date Type Department Care Team Description 03/29/2020 Office Visit Elisha Young Bilateral impacted cerumen ( Primary Dx); [address] MD [place] 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, unspecified vessel or lesion type, unspecified whether [place] or transplanted heart; [place], [place] [address] Immunization due; [phone] [place] Excessive cerumen in ear canal[place] [address] Social History Tobacco Use Types Packs/Day Years [...] Sign Reading Time Taken Comments Blood Pressure 140/80 03/29/2020 10:39 AM WATER MAINTENANCE SUPERVISOR Pulse 94 03/29/2020 10:39 AM WATER MAINTENANCE SUPERVISOR Temperature 37 ??C (98.6 ??F) 03/29/2020 10:39 AM WATER MAINTENANCE SUPERVISOR Respiratory Rate 16 03/29/2020 10:39 AM WATER MAINTENANCE SUPERVISOR Oxygen Saturation 91% 03/29/2020 10:39 AM WATER MAINTENANCE SUPERVISOR Inhaled Oxygen Concentration - - Weight 70.5 kg (155 lb 6.4 oz) 03/29/2020 10:39 AM WATER MAINTENANCE SUPERVISOR Height 167.4 cm (5' 5.91) 03/29/2020 10:39 AM WATER MAINTENANCE SUPERVISOR Body Mass Index 25.15 03/29/2020 10:39 AM WATER MAINTENANCE SUPERVISOR documented in this encounter Progress Notes Elisha Woodward MD - 03/29/2020 10:40 AM CST Estab Patient Visit Subjective Patient ID: Obey Vines is a 80 y.o. male. HPI the patient is here today because of plugging and decreased hearing in both ears. The patient is a 80-year-old gentleman who I have not met before or chronic medical a long time ago he has been seen in our clinic periodically though he also sees providers at the [facility] site here in [place]. In fact he had a total left shoulder joint replacement done earlier this year at [facility]. 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 Osteopenia History of polymyalgia rheumatica History of cerumen impaction Significant loss of hearing PAST SURGICAL HISTORY Left carotid endarterectomy 2 cardiac stents I believe both shoulders have been replaced more recently the left one Bilateral cataract procedures Left wrist surgery Social history when he was working he worked in the [employer] business he has been for 52 years 4 children 8 grandchildren and 2 great-grandchildren Family history his father age 74 from heart and blood clot issues his mother age 94 2 sisters 1 living and one from unknown cause Review of Systems his current review of systems shows that he is having fairly significant loss of hearing but I think is a little more plugged at this time no fevers chills coughs or colds no recent infections of any sort he does use hearing aids Objective Physical Exam patient is alert he appears comfortable his vital signs show blood pressure 140/80 pulse 94 regular rate and rhythm temp 98.6 Weight 155 pounds O2 sats approximately 91 to 92% room air Both of his ears have bilateral cerumen impaction which evening after irrigation there is some wax remaining though improved so the tympanic membranes cannot be visualized. His pupils are equal conjunctiva clear Sinuses are nontender to palpation His tongue was moist throat was clear Neck no adenopathy there was a scar over the left neck area Lungs were fairly clear without any particular wheeze rales or rhonchi Assessment/Plan Diagnoses and all orders for this visit: Bilateral impacted cerumen - carbamide peroxide (Debrox) 6.5 % otic solution; May instill 4-5 drops into each ear twice a day as needed for ear wax up to 5 days. May repeat as needed Coronary artery 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 pectoris, unspecified vessel or lesion type, unspecified whether [place] or transplanted heart - nitroglycerin (NITROSTAT) 0.4 MG SL tablet; Place 1 tablet (0.4 mg total) under the tongue every 5(five) minutes if needed for chest pain Immunization due - Flu Vaccine High Dose 65yrs and Older IM The overall assessment is bilateral cerumen impaction plan was its removal by irrigation that was only partially successful. Patient was given prescription for Debrox solution that he can continuous pickling line pickler at his local pharmacy. Returnas needed. R MAINTENANCE SUPERVISOR documented in this encounter Miscellaneous Notes Addendum Note - Kathleen Pruitt RN - 03/29/2020 10:40 AM WATER MAINTENANCE SUPERVISOR Addended by: KATHLEEN PRUITT on: 03/31/2020 09:15 AM Modules accepted: Orders R MAINTENANCE SUPERVISOR Addendum Note - Kathleen Pruitt RN - 03/29/2020 10:40 AM WATER MAINTENANCE SUPERVISOR Addended by: KATHLEEN PRUITT on: 03/31/2020 09:47 AM Modules accepted: Orders R MAINTENANCE SUPERVISOR documented in this encounter Plan of Treatment Scheduled Orders Name Type Priority Associated Diagnoses Order S chedule Ear cerumen removal Procedures Routine Excessive cerumen in 1 Occurrences starting ear canal, bilateral 020 until 03/31/2021 documented as of this encounter Visit Diagnoses Diagnosis Bilateral impacted cerumen - Primary Impacted cerumen 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, unspecified vessel or lesion type, unspecified whether [place] or transplant ed heart Immunization due Excessive cerumen in ear canal, bilatera l documented in this encounter Care Teams Medication Coordinator Relationship Specialty Start Date End Date None, Pcp PCP - General Improvement Rn 03/29/20 12/31/[address] [place] [phone] documented as of this encounter
--- OUTSIDE RECORDS SUMMARY | 2021-12-17 09:42 | XMS_ITS | Encounter Summary ---
:[address] [facility] Address [address] [place] [address] Care Team Providers Name Role Phone None, Pcp Primary Care Provider Unavailable Encounter Details Date Type Department Care Team Description 06/30/2020 Immunization Family Medicine [address] [place] [address] Social History Tobacco Use Types Packs/Day Years [...] on filedocumented in this encounter Care Teams Lobby Concierge Relationship Specialty Start Date End Date None, Pcp PCP - General Prosthetics Lab Technician 03/29/20 12/31/20 [address] [place] [address] documented as of this encounter
--- OUTSIDE RECORDS SUMMARY | 2021-12-17 09:42 | XMS_ITS | Encounter Summary ---
:1940 Author Organization [facility] Address [address] [place] [address] Care Team Providers Name Role Phone None, Pcp Primary Care Provider Unavailable Reason for Visit Reason Onset Date Comments Schedule ENT 04/05/2020 Encounter Details Date Type Department Care Team Description 04/05/2020 Telephone [facility] [place], Brendon Arceo MD Schedule ENT [address] [place] [address] Social History Tobacco Use Types Packs/Day Years [...] this encounter Miscellaneous Notes Telephone Encounter - Raymundo Crawley - 04/05/2020 8:11 AM CST Left message to have patient call back and schedule an appointment with ENT preferably Dr. Haney PEMENT MATCHER documented in this encounter Plan of Treatment Not on filedocumented as of this encounter Visit Diagnoses Not on filedocumented in this encounter Care Teams Office Bookkeeper Relationship Specialty Start Date End Date None, Pcp PCP - General Perl Programmer 03/29/20 12/31/20 [address] [place] [address] documented as of this encounter
--- OUTSIDE RECORDS SUMMARY | 2021-12-17 09:42 | XMS_ITS | Encounter Summary ---
:1940 Author Organization [facility] Address [address] [place] [address] Care Team Providers Name Role Phone Laila Loco APRN, LOOM TECHNICIAN Primary Care Provider Reason for Visit Reason Onset Date Comments Shoulder pain 11/11/2019 Encounter Details Date Type Department Care Team Description 11/11/2019 Telephone [place] Elisha Woodward MD Shoulder pain [address] [place], [place] [address] [place], [place] [phone] (Wo rk) Social History Tobacco Use Types [...] Telephone Encounter - Nisha Morrison RN - 11/19/2019 8:38 AM CDT Patient informed, he had no questions. Telephone Encounter - Nisha Morrison RN - 11/19/2019 8:32 AM CDT LMTC Telephone Encounter - Elisha Woodward MD - 11/18/2019 6:32 PM CDT Was Obey informed that his Liver tests were good and that if he wishes to try Tylenol 1-2 every 6-8 hours for his shoulder pain he can do so. If this is beneficial then he can continue and then say repeat LFTs in 3- 4 months to be sure that his liver tests are still ok. Let me know of the above and what he would like to do. Telephone Encounter - Elisha Woodward MD - 11/12/2019 4:48 PM CDT Kaylee horne Telephone Encounter - Nisha Morrison RN - 11/12/2019 1:14 PM CDT Patient informed. Scheduled for 11/16/19 Telephone Encounter - Elisha Woodward MD - 11/12/2019 12:50 PM CDT Let Obey know that I have placed lab orders for liver functions and a fasting blood sugar. He shouldcome in fasting next week to have these done and when results are back we will let him know. No other labs including cholesterol are needed at this time as they all have been done in the last 6-7 months. Telephone Encounter - Nisha Morrison RN - 11/12/2019 8:32 AM CDT Patient was informed of this message. He would like to know in now for a liver function test to see where his levels are at. He also requested a cholesterol test and if he needs other labs. Please advise. Telephone Encounter - Elisha Woodward MD - 11/11/2019 5:56 PM CDT Obey is on a high dose of Lipitor and his LFT show minimal though some elevation. He also is on Plavix which can increase the risk of GI bleeding. Pain medications like Tylenol or narcotics are metabolized through the liver. The other pain relievers like Ibuprofen, Aleve, steroids all have some potential to increase risk for stomach ulcers. There is an anti-inflammatory med called Celebrex which is felt to be safer that say Ibuprofen or aleve but no guarantee that it can't cause a stomach or even anintestinal reaction. Tylenol is probably the safest med at the moment and if he takes tylenol and finds it effective then I would suggest we recheck his liver functions in say 3 months and if the levels are OK then continue to monitor. If Tylenol is not effective or if his liver tests become more elevated then we could then try the med called Celebrex. Let me know what he would like to try/do. Telephone Encounter - Nisha Morrison RN - 11/11/2019 4:43 PM CDT Patient has concerns that because he is taking a higher dose of Lipitor 80mg and some medication aremetabolized through the liver he doesn't want to be at higher risk for bleeding etc. He questions ifit is safe to take Tylenol, Iburpofen, or Aleve. Is there a medication that you feel would be best for treating the pain from his rotator cuff. Is there something prescription. He stated that he has gotten cortisone injection before but they are no longer helping. Please advise. Telephone Encounter - Arti Amaya - 11/11/2019 3:09 PM CDT Pt called asking to talk with a nurse about what he can take for his shoulder pain. The message leftby Dr Woodward regarding this yesterday, was read to him. Pt would still like to talk with a nurse. Please call Pt at [phone] to advise. documented in this encounter Plan of Treatment Not on filedocumented as of this encounter Results (ABNORMAL) Glucose, fasting (11/16/2019 8:19 AM CDT) athologist Signature Glucose 107 (H) 70 - 100 11/16/2019 [facility] mg/dL 2:07 PM CDT [facility] Specimen Anatomical Collection Method Collection Time Receive d Time (Source) Location / / Volume Laterality Blood (Blood, 11/16/2019 8:19 AM 11/16/19 20 1:02 Venous) CDT PM CDT D. Dontrell Woodward MD LAB BLOOD ORDERABLES Performing Organization Address City/State/ZIP Code Phon e Number [facility] [address] [place] [address] Liver panel (11/16/2019 8:19 AM CDT) P athologist Signature Total Protein 7.0 6.3 - 8.2 11/16/2019 [facility] g/dL 2:07 PM CDT [facility] Albumin, Serum 4.1 3.5 - 5.0 11/16/2019 [facility] g/dL 2:07 PM CDT [facility] Total Bilirubin 1.0 0.1 - 1.0 11/16/2019 [facility] mg/dL 2:07 PM [facility] Bilirubin, <0.1 0.0 - 0.3 11/16/2019 [facility] mg/dL 2:07 PM [facility] AST 25 8 - 48 U/L 11/16/2019 [facility] 2:07 PM [facility] Alkaline 116 38 - 128 11/16/2019 [facility] Phosphatase U/L 2:07 PM [facility] ALT (SGPT) 20 0 - 49 U/L 11/16/2019 [facility] 2:07 PM [facility] Specimen Anatomical Collection Method Collection Time Receive d Time (Source) Location / / Volume Laterality Blood 11/16/2019 8:19 AM 0 1:02 CDT PM CDT D. Dontrell Woodward MD LAB BLOOD ORDERABLES Performing Organization Address City/State/ZIP Code Phon e Number [facility] [address] [place] [address] documented in this encounter Visit Diagnoses Diagnosis Diabetes mellitus screening - Primary Screening for diabetes mellitus Medication monitoring encounter Encounter for therapeutic drug monitorin g documented in this encounter Care Teams Embedded Developer Relationship Specialty Start Date End Date Laila Loco, VETERINARY MEDICINE SCIENTIST, LOOM TECHNICIAN PCP - General 12/09/17 01/10/[address] [place] [id number] documented as of this encounter
--- OUTSIDE RECORDS SUMMARY | 2021-12-17 09:42 | XMS_ITS | Encounter Summary ---
:1940 Author Organization [facility] Address [address] [place] [address] Care Team Providers Name Role Phone Laila Loco SILICATOR, SUGAR PRESSER Primary Care Provider [phone] Encounter Details Date Type Department Care Team Description 04/26/2019 Orders Only [place] Laila Loco, Pneumonia of right [address] SILICATOR, SUGAR PRESSER lower lobe due to [place], [place] [address] infectious organism [address] [place] [address] (HCC) (Primary Dx) [phone] Social History Tobacco Use Types Packs/Day Years [...] Primary documented in this encounter Care Teams Emergency Services Dispatcher Relationship Specialty Start Date End Date Laila Loco, SILICATOR, SUGAR PRESSER PCP - General 12/09/17 01/10/[address] [place] [address] [place] [address] documented as of this encounter
--- OUTSIDE RECORDS SUMMARY | 2021-12-17 09:42 | XMS_ITS | Encounter Summary ---
:1940 Author Organization [facility] Address [address] [place] [address] Care Team Providers Name Role Phone Laila Loco APRN, IRA Primary Care Provider Reason for Visit Reason Comments Cough Encounter Details Date Type Department Care Team Description 06/28/2019 Office Visit [place] Cough (Primary Dx); [address], [place] Irregular heart rate [place] [address] [facility] [address] [place] [address] Social History Tobacco Use Types Packs/Day Years [...] Sign Reading Time Taken Comments Blood Pressure 130/60 06/28/2019 10:33 AM AMBULATORY NURSE Pulse 66 06/28/2019 10:33 AM AMBULATORY NURSE Temperature 36.4 ??C (97.6 ??F) 06/28/2019 10:33 AM AMBULATORY NURSE Respiratory Rate 16 06/28/2019 10:33 AM AMBULATORY NURSE Oxygen Saturation 97% 06/28/2019 10:33 AM AMBULATORY NURSE Inhaled Oxygen Concentration - - Weight 65.5 kg (144 lb 8 oz) 06/28/2019 10:33 AM AMBULATORY NURSE Height 167.6 cm (5' 6) 06/28/2019 10:33 AM AMBULATORY NURSE Body Mass Index 23.32 06/28/2019 10:33 AM AMBULATORY NURSE documented in this encounter Patient Instructions Patient InstructionsChsulema Loco APRN, CNP - 06/28/2019 10:20 AM AMBULATORY NURSE Zpak LATORY NURSE documented in this encounter Progress Notes Laila Loco APRN, CNP - 06/28/2019 10:20 AM CST Estab Patient Visit Subjective Patient ID: Obey Vines is a 79 y.o. male presenting for the following concerns. Chief Complaint Patient presents with ??? Cough HPI: The patient is a pleasant 79 y.o. year old male presenting ambulatory to the clinical setting with chest congestion, non radiating right-sided anterior chest discomfort, and productive cough, not assessing the color of the phlegm, with associated dyspnea while coughing, for the past week. No wheezing.The patient is concerned he has pneumonia. The patient reports his symptoms started before he traveled to [facility] 5 days ago, returning on Friday 2, days ago. The patient reports his symptoms are not improving since he returned home. The patient reports laying flat, laughing, and deep breathing increases his cough. The patient reports he does feel somewhat short of breath while coughing. No palpitations, peripheral edema, lightheadedness, dizziness, presyncope, syncope, and/or cardiac murmurs. The patient reports he has had mild nasal congestion and nasal drainage, nothing he deems problematic. No ear pain. No sore throat. No fever, no chills. No nausea, vomiting, and/or diarrhea. No headache. Non-smoker. ROS: GENERAL: See HPI. No fever, no chills. EARS: See HPI. No ear pain. NOSE: See HPI. The patient has had mild nasal congestion and nasal drainage nothing he would deem problematic. MOUTH/THROAT: See HPI. No sore throat. CARDIOVASCULAR: See HPI. The patient reports he has had non-radiating right- sided chest pain, as shepoints to his right anterior chest area, with chest congestion. No palpitations, peripheral edema, lightheadedness, dizziness, presyncope, syncope, and/or cardiac murmurs. RESPIRATORY: See HPI. The patient has had a cough, which is productive, uncertain of the color of the phlegm, with associated shortness of breath while coughing. No wheezing. GASTROINTESTINAL: See HPI. No nausea, vomiting, and/or diarrhea. NEUROLOGICAL: See HPI. No headache. The following portions of the patient's chart were reviewed in this encounter and updated as appropriate: Tobacco Allergies Meds Problems Med Hx Surg Hx Fam Hx Current Outpatient Medications: ??? aspirin 81 MG tablet, Take 1 tablet by mouth 1 (one) time each day, Disp: , Rfl: ??? calcium-vitamin D3-vitamin K (VIACTIV) 500-500-40 MG-UNT-MCG chewable tablet chewable tablet, Chew 2 (two) times a day , Disp: , Rfl: ??? clopidogrel (PLAVIX) 75 MG tablet, Take 1 tablet (75 mg total) by mouth 1 (one) time each day, Disp: 90 tablet, Rfl: 3 ??? nitroglycerin (NITROSTAT) 0.4 MG SL tablet, Place 1 tablet (0.4 mg total) under the tongue every5 (five) minutes if needed for chest pain, Disp: 30 tablet, Rfl: 1 ??? pantoprazole (PROTONIX) 40 MG EC tablet, Take 1 tablet (40 mg total) by mouth 1 (one) time each day before breakfast, Disp: 90 tablet, Rfl: 3 ??? atorvastatin (LIPITOR) 80 MG tablet, Take 1 tablet (80 mg total) by mouth 1 (one) time each day,Disp: 90 tablet, Rfl: 3 ??? azithromycin (ZITHROMAX) 250 MG tablet, Take 2 tabs (500 mg) by mouth today, than 1 daily for 4 days., Disp: 6 tablet, Rfl: 0 ??? ezetimibe (ZETIA) 10 MG tablet, Take 1 tablet (10 mg total) by mouth 1 (one) time each day, Disp: 90 tablet, Rfl: 3 ??? metoprolol succinate XL (TOPROL-XL) 25 MG 24 hr tablet, Take 1 tablet (25 mg total) by mouth 1 (one) time each day Do not crush or chew., Disp: 90 tablet, Rfl: 3 Objective Visit Vitals BP 130/60 (BP Location: Right arm, Patient Position: Sitting) Pulse 66 Temp 36.4 ??C (97.6 ??F) (Temporal) Resp 16 Ht 1.676 m (5' 6) Wt 65.5 kg (144 lb 8 oz) SpO2 97% BMI 23.32 kg/m?? Smoking Status Never Smoker BSA 1.75 m?? GENERAL: The patient is alert, orientated, and in no apparent distress. HEENT: Head normocephalic. Eyes - pupils round and reactive to light. CARDIOVASCULAR: Normal heart rate, irregular regular rhythm, pause every fifth beat. RESPIRATORY: Lungs are clear, bilaterally. No wheezing. DIAGNOSTICS: Chest x-ray appears to have a haziness in the right mid lobe, official radiology reportis pending. CBC with differential is normal. EKG normal sinus rhythm, ventricular rate 60, official cardiology report is pending. Lab Results Component Value Date WBC 7.1 06/28/2019 HGB 14.6 06/28/2019 HCT 44.6 06/28/2019 MCV 91.6 06/28/2019 PLT 221 06/28/2019 Assessment/Plan Obey was seen today for cough. Diagnoses and all orders for this visit: Cough (Primary) - CBC Branch Off w/Diff; Future - X-ray Chest 2 Views; Future - X-ray Chest 2 Views - azithromycin (ZITHROMAX) 250 MG tablet; Take 2 tabs (500 mg) by mouth today, than 1 daily for 4 days. Irregular heart rate - ECG 12 lead; Future - ECG 12 lead Discussed the plan of care with the patient. Prescribed a Z-Matt. The patient should rest and increase his fluids. The patient should continue to monitor symptoms and call if symptoms persist and/ or worsen. The patient will be notified of the official cardiology impression of the EKG and official radiology report of the chest x-ray. The patient agrees and understands this plan of care. Laila Loco APRN, IRA LATORY NURSE documented in this encounter Plan of Treatment Not on filedocumented as of this encounter Procedures Procedure Name Priority Date/Time Associated Diagnosis Comme nts XR CHEST 2 VIEWS Routine 06/28/2019 11:30 AM Cough Resu lts for this AMBULATORY NURSE procedure are i n the results section. ECG 12-LEAD Routine 06/28/2019 12:00 AM Irregular heart rate Results for this AMBULATORY NURSE procedure are i n the results section. documented in this encounter Results X-ray Chest 2 Views (06/28/2019 11:30 AM AMBULATORY NURSE) Anatomical Region Laterality Modality Body Radiographic Imaging Specimen (Source) Anatomical Collection Method Collection Time Re ceived Time Location / / Volume Laterality 06/28/2019 11:30 AM AMBULATORY NURSE Impressions 06/28/2019 11:39 AM AMBULATORY NURSE IMPRESSION: Stable peripheral right basal interstiti al prominence which is likely postinflammatory fibrotic stranding. ??R esidual pneumonia is not totally excluded. Narrative 06/28/2019 11:39 AM AMBULATORY NURSE INDICATION: cough COMPARISON: 04/22/2019 FINDINGS: CXR: Min Two views: Frontal and lateral: Heart size and vascularity are within no rmal limits. ??No infiltrates or effusions.There is trace right anterior basal subsegmental streaky interstitial prominence or fibrotic stra nding, stable. Right shoulder arthroplasty redemonstrat ed. Procedure Note Diana Mcclure MD - 06/28/2019Formattin g of this note might be different from the original. INDICATION: cough COMPARISON: 04/22/2019 FINDINGS: CXR: Min Two views: Frontal and lateral: Heart size and vascularity are within no rmal limits. No infiltrates or effusions.There is trace right anterior basal subsegmental streaky interstitial prominence or fibrotic stra nding, stable. Right shoulder arthroplasty redemonstrat ed. IMPRESSION: Stable peripheral right basal interstiti al prominence which is likely postinflammatory fibrotic stranding. Res idual pneumonia is not totally excluded. Laila Loco FLAKE OR SHRED ROLL OPERATOR, DREDGE LEVER OPERATOR IMG XR PROCEDURES (ABNORMAL) CBC Branch Off w/Diff (06/28/2019 11:22 AM AMBULATORY NURSE) [facility] Method Time Signature WBC 7.1 3.5 - 10.5 06/28/2019 [facility] K/uL 1:04 PM AMBULATORY NURSE [place]ALLS RBC 4.87 4.30 - 06/28/2019 [facility] 5.70 M/uL 1:04 PM AMBULATORY NURSE [place]ALLS Hemoglobin 14.6 13.5 - 06/28/2019 [facility] 17.5 g/dL 1:04 PM AMBULATORY NURSE [place]ALLS Hematocrit 44.6 38.0 - 06/28/2019 [facility] 50.0 % 1:04 PM AMBULATORY NURSE [place]ALLS Platelets 221 150 - 450 06/28/2019 [facility] K/uL 1:04 PM AMBULATORY NURSE [place]ALLS MCV 91.6 81.2 - 06/28/2019 [facility] 95.1 fL 1:04 PM AMBULATORY NURSE [place]ALLS MCH 30.0 26.0 - 06/28/2019 [facility] 32.0 pg 1:04 PM AMBULATORY NURSE [place]ALLS MCHC 32.7 32.0 - 06/28/2019 [facility] 36.0 g/dL 1:04 PM AMBULATORY NURSE [place]ALLS RDW 14.5 11.8 - 06/28/2019 [facility] 15.6 % 1:04 PM AMBULATORY NURSE FALLS Lymphocytes % 18.9 18.0 - 06/28/2019 [facility] 45.0 % 1:04 PM AMBULATORY NURSE FALLS Mid-size Cells 5.6 3.3 - 10.1 06/28/2019 [facility] % 1:04 PM AMBULATORY NURSE FALLS Granulocytes/Urszula 75.5 (H) 45.8 - 06/28/2019 [facility] trophils 73.7 % 1:04 PM AMBULATORY NURSE [place]ALLS Lymphocytes 1.3 0.9 - 2.9 06/28/2019 [facility] Absolute K/uL 1:04 PM AMBULATORY NURSE [place]ALLS MIDS Absolute 0.4 0.2 - 0.8 06/28/2019 [facility] K/uL 1:04 PM AMBULATORY NURSE [place]ALLS Granulocytes/Urszula 5.4 2.1 - 8.7 06/28/2019 [facility] trophils K/uL 1:04 PM AMBULATORY NURSE [place]ALLS Absolute Specimen Anatomical Collection Method Collection Time Receive d Time (Source) Location / / Volume Laterality Blood 06/28/2019 11:22 06/28/2019 AM AMBULATORY NURSE 11:22 AM AMBULATORY NURSE Laila Loco APRN, CNP LAB BLOOD ORDERABLES Performing Organization Address City/State/ZIP Code Phon e Number [facility] [place] [address] [place] [address] ECG 12 lead (06/28/2019 12:00 AM AMBULATORY NURSE) Narrative 06/28/2019 12:00 AM AMBULATORY NURSE This result has an attachment that is no t available. ECG for irregular heart rhythm performed , patient tolerated procedure well Laila Loco APRN, CNP ECG ORDERABLES documented in this encounter Visit Diagnoses Diagnosis Cough - Primary Irregular heart rate documented in this encounter Care Teams Sports Medicine Specialist Relationship Specialty Start Date End Date Laila Loco APRN, CNP PCP - General 12/09/17 01/10/20 [address] [place] [address] documented as of this encounter
--- OUTSIDE RECORDS SUMMARY | 2021-12-17 09:42 | XMS_ITS | Encounter Summary ---
:1940 Author Organization [facility] Address [address] [place] [address] Care Team Providers Name Role Phone Laila Loco APRN, HOOP DRIVING MACHINE OPERATOR Primary Care Provider [phone] Reason for Visit Reason Onset Date Comments Shoulder pain 11/10/2019 Encounter Details Date Type Department Care Team Description 11/10/2019 Telephone [place] Elisha Woodward MD Shoulder pain [address] [place], [place] [address] [place], [place] [phone] (Wo rk) Social History Tobacco Use Types [...] Telephone Encounter - Guillermina Bradford LPN - 11/11/2019 11:38 AM CDT Will wait for a call back from Obey Telephone Encounter - Elisha Woodward MD - 11/10/2019 5:47 PM CDT I called and left a message for Obey. He can take tylenol, aleve, ibuprofen or if he wants he could come into the office for a cortisone shot. Let me know if he would like to do this. Telephone Encounter - Nisha Morrison RN - 11/10/2019 4:39 PM CDT Please advise on shoulder pain. Telephone Encounter - Aliza Renee - 11/10/2019 4:09 PM CDT Patient continues to have shoulder pain and he is wondering what he can take for it along with his currents medications. Please call his cell phone at [phone]. documented in this encounter Plan of Treatment Not on filedocumented as of this encounter Visit Diagnoses Not on filedocumented in this encounter Care Teams Cultural Historian Relationship Specialty Start Date End Date Laila Loco, DRYWALL TAPER HELPER, HOOP DRIVING MACHINE OPERATOR PCP - General 12/09/17 01/10/20 [address] [facility] [place] [address] documented as of this encounter
--- OUTSIDE RECORDS SUMMARY | 2021-12-17 09:42 | XMS_ITS | Encounter Summary ---
:1940 Author Organization [facility] Address [address] [place] [address] Care Team Providers Name Role Phone Laila Loco APRN, CULINARY ARTIST Primary Care Provider [phone] Reason for Visit Reason Comments Follow-up Coughing still and not eatin g Encounter Details Date Type Department Care Team Description 07/06/2019 Office Visit [place] Laila Loco Decreased appetite [address], [place] WARD (Primary Dx) [place], [place] [address] [facility] [address] [place] [address] Social History Tobacco Use Types Packs/Day Years [...] Sign Reading Time Taken Comments Blood Pressure 124/66 07/06/2019 8:34 AM DENTAL AIDE Pulse 68 07/06/2019 8:34 AM DENTAL AIDE Temperature 35.7 ??C (96.2 ??F) 07/06/2019 8:34 AM DENTAL AIDE Respiratory Rate 16 07/06/2019 8:34 AM DENTAL AIDE Oxygen Saturation 93% 07/06/2019 8:34 AM DENTAL AIDE Inhaled Oxygen Concentration - - Weight 64.9 kg (143 lb) 07/06/2019 8:34 AM DENTAL AIDE Height 167.6 cm (5' 5.98) 07/06/2019 8:34 AM DENTAL AIDE Body Mass Index 23.09 07/06/2019 8:34 AM DENTAL AIDE documented in this encounter Patient Instructions Patient InstructionsChsulema Loco APRN, CNP - 07/06/2019 8:40 AM DENTAL AIDE Hold Calcium supplement One serving of coffee per day AL AIDE documented in this encounter Progress Notes Laila Loco APRN, CNP - 07/06/2019 8:40 AM CST Estab Patient Visit Subjective Patient ID: Obey Vines is a 79 y.o. male presenting for the following concerns. Chief Complaint Patient presents with ??? Follow-up Coughing still and not eating HPI: The patient is a pleasant 79 y.o. year old male presenting ambulatory to the clinical setting with adecreased appetite for years and feels full quickly when eating. The patient reports he has trouble maintaining his weight. The patient decided to discontinue his medication a couple of days ago to seeif that would stimulate his appetite, which it did not. No abdominal pain, nausea, vomiting, diarrhea, abdominal bloating, or belching. The patient reports his stools appear normal in color, without blood or mucus. The patient is constipated, which he feels is related to his medications. The patient reports every time he eats chocolate he gets the hiccups. The patient reports he has an odorous breathand constantly sucks on breath mints. The patient feels his bad breath is from his reflux and not necessarily his medications. The patient is on pantoprazole 40 mg daily. The patient reports his false teeth may alter his food choice/s, as he has a difficult time chewing steak for example. No fevers orchills. No night sweats. The patient reports at night when he is watching a ball game he will eat ice cream, marshmallows, and cheese, which is likely habitual, as he does not necessarily feeling hungry. The patient does not feel depressed. The patient reports the cough he was evaluated for last week is certainly improving with a Z-Matt. No wheezing or increased work of breathing. The patient reports his colonoscopy is up-to-date. The patient drinks a lot of caffeinated coffee, several servings per day. No recreational drug use. Alcohol rare. ROS: GENERAL: See HPI. The patient reports his appetite has been diminished for an extended length of time, without gastrointestinal symptoms. The patient reports he has a hard time maintaining his weight. No fever, no chills. No night sweats. MOUTH/THROAT: See HPI. The patient has had bad breath for extended period of time, which he feels isrelated to his GERD. GASTROINTESTINAL: See HPI. The patient denies nausea, vomiting, diarrhea, abdominal pain, hematemesis, melena, and/or hematochezia. The patient does have constipation which is not new and he feels is related to his medications. GENITOURINARY: The patient inquires about Viagra for erectile dysfunction at the end of the clinicalvisit. The following portions of the patient's chart were reviewed in this encounter and updated as appropriate: Tobacco Allergies Meds Problems Med Hx Surg Hx Fam Hx Current Outpatient Medications: ??? aspirin 81 MG tablet, Take 1 tablet by mouth 1 (one) time each day, Disp: , Rfl: ??? atorvastatin (LIPITOR) 80 MG tablet, Take 1 tablet (80 mg total) by mouth 1 (one) time each day,Disp: 90 tablet, Rfl: 3 ??? calcium-vitamin D3-vitamin K (VIACTIV) 500-500-40 MG-UNT-MCG chewable tablet chewable tablet, Chew 2 (two) times a day , Disp: , Rfl: ??? clopidogrel (PLAVIX) 75 MG tablet, Take 1 tablet (75 mg total) by mouth 1 (one) time each day (Patient not taking: Reported on 07/06/2019), Disp: 90 tablet, Rfl: 3 ??? docusate sodium (COLACE) 100 MG capsule, Take 1 capsule (100 mg total) by mouth 1 (one) time each day, Disp: 90 capsule, Rfl: 3 ??? ezetimibe (ZETIA) 10 MG tablet, Take 1 tablet (10 mg total) by mouth 1 (one) time each day, Disp: 90 tablet, Rfl: 3 ??? metoprolol succinate XL (TOPROL-XL) 25 MG 24 hr tablet, Take 1 tablet (25 mg total) by mouth 1 (one) time each day Do not crush or chew., Disp: 90 tablet, Rfl: 3 ??? nitroglycerin (NITROSTAT) 0.4 MG SL tablet, Place 1 tablet (0.4 mg total) under the tongue every5 (five) minutes if needed for chest pain (Patient not taking: Reported on 07/06/2019), Disp: 30 tablet, Rfl: 1 ??? pantoprazole (PROTONIX) 40 MG EC tablet, Take 1 tablet (40 mg total) by mouth 1 (one) time each day before breakfast (Patient not taking: Reported on 07/06/2019), Disp: 90 tablet, Rfl: 3 Objective Visit Vitals BP 124/66 (BP Location: Left arm, Patient Position: Sitting) Pulse 68 Temp (!) 35.7 ??C (96.2 ??F) (Temporal) Resp 16 Ht 1.676 m (5' 5.98) Wt 64.9 kg (143 lb) SpO2 93% BMI 23.09 kg/m?? Smoking Status Never Smoker BSA 1.74 m?? Weight 08/17/18 was (146 lb 9.7 oz) GENERAL: The patient is alert, orientated, and in no apparent distress. CARDIOVASCULAR: Normal heart rate and rhythm. No murmur. RESPIRATORY: Lungs are clear, bilaterally. No wheezing. GASTROENTEROLOGY: Abdomen is soft, no organomegaly, positive bowel sounds. DIAGNOSTICS: CBC with differential, comprehensive metabolic panel, Amylase, Lipase, ESR, and abdominal flat x-ray. Assessment/Plan Obey was seen today for follow-up. Diagnoses and all orders for this visit: Decreased appetite (Primary) - CBC Branch Off w/Diff; Future - Comprehensive metabolic panel; Future - Amylase; Future - Lipase; Future - ESR-Sed rate; Future - C-reactive protein; Future - X-ray abdomen 2 views; Future - X-ray abdomen 2 views Discussed the plan of care with the patient. The patient's x-ray is concerning for a moderate amountof stool in his colon, and not sure if constipation is contributing to his decreased appetite. The patient should slowly decrease his caffeine intake, to one serving per day, or consider eliminating completely. Prescribed Colace 100 mg daily x1 month, hold Calcium, and will see in back in 1 month to determine how he is feeling, with consideration of abdominal imaging and/or referral to GI. Will see when he had his last colonoscopy and update his medical records. The patient will resume his medications as previously prescribed. Will discuss Viagra in his follow up visit. The patient be notified of his lab results. The patient agrees and understands this plan of care. Laila Loco APRN, IRA documented in this encounter Plan of Treatment Not on filedocumented as of this encounter Procedures Procedure Name Priority Date/Time Associated Diagnosis Comme nts XR ABDOMEN 2 VIEWS Routine 07/06/2019 9:35 AM Decreased appeti te Results for this DENTAL AIDE procedure are i n the results section. documented in this encounter Results X-ray abdomen 2 views (07/06/2019 9:35 AM DENTAL AIDE) Anatomical Region Laterality Modality Body Radiographic Imaging Specimen (Source) Anatomical Collection Method Collection Time Re ceived Time Location / / Volume Laterality 07/06/2019 9:35 AM DENTAL AIDE Impressions 07/06/2019 9:41 AM DENTAL AIDE IMPRESSION: Bowel gas pattern is nonobstructive. If there is a clinical need for additional imaging, CT scan could be con sidered. Narrative 07/06/2019 9:41 AM DENTAL AIDE INDICATION: decreased appetite COMPARISON: None available FINDINGS: 2 VIEWS ABDOMEN Gas with a moderate amount of stool is s cattered throughout the colon down to the rectum. No dilated loops of bowel . Bowel gas pattern is nonobstructive. No free subdiaphragmatic air. Phleboliths are seen in the region of the right scrotum. ??Vascular calcifications are demonstrated bilaterally in the pelvis. Procedure Note Janina Tompkins MD - 07/06/2019 INDICATION: decreased appetite COMPARISON: None available FINDINGS: 2 VIEWS ABDOMEN Gas with a moderate amount of stool is s cattered throughout the colon down to the rectum. No dilated loops of bowel . Bowel gas pattern is nonobstructive. No free subdiaphragmatic air. Phleboliths are seen in the region of the right scrotum. Vascular ca lcifications are demonstrated bilaterally in the pelvis. IMPRESSION: Bowel gas pattern is nonobstructive. If there is a clinical need for additional imaging, CT scan could be con sidered. Laila Loco APRN, CNP IMG XR PROCEDURES C-reactive protein (07/06/2019 9:16 AM DENTAL AIDE) athologist Signature CRP 2.0 0.0 - 4.9 07/06/2019 [facility] mg/L 1:32 PM DENTAL AIDE CENTER LABORATORY Specimen Anatomical Collection Method Collection Time Receive d Time (Source) Location / / Volume Laterality Blood (Blood, 07/06/2019 9:16 AM 07/06/19 20 Venous) DENTAL AIDE 12:32 PM DENTAL AIDE Laila Loco APRN, CNP LAB BLOOD ORDERABLES Performing Organization Address City/[facility]/ZIP Code Phon e Number [facility] [address] [place] [phone] (ABNORMAL) ESR-Sed rate (07/06/2019 9:16 AM DENTAL AIDE) athologist Signature Sed Rate 36 (H) 0 - 22 07/06/2019 [facility] mm/hr 1:40 PM DENTAL AIDE CENTER LAB[facility]ORY Specimen Anatomical Collection Method Collection Time Receive d Time (Source) Location / / Volume Laterality Blood (Blood, 07/06/2019 9:16 AM 07/06/19 20 Venous) DENTAL AIDE 12:32 PM DENTAL AIDE Laila Loco APRN, CNP LAB BLOOD ORDERABLES Performing Organization Address City/[facility]/ZIP Code Phon e Number [facility] [address] [place] [phone] Lipase (07/06/2019 9:16 AM DENTAL AIDE) athologist Signature Lipase 85 23 - 300 07/06/2019 [facility] 1:32 PM [facility] Specimen Anatomical Collection Method Collection Time Receive d Time (Source) Location / / Volume Laterality Blood (Blood, 07/06/2019 9:16 AM 07/06/19 20 Venous) DENTAL AIDE 12:32 PM DENTAL AIDE Laila Loco APRN, CNP LAB BLOOD ORDERABLES Performing Organization Address [facility]/ZIP [facility] Phon e Number [facility] [address] [place] [phone] (ABNORMAL) Amylase (07/06/2019 9:16 AM DENTAL AIDE) P athologist Signature Amylase 173 (H) 30 - 110 07/06/2019 [facility] 1:32 PM [facility] Specimen Anatomical Collection Method Collection Time Receive d Time (Source) Location / / Volume Laterality Blood (Blood, 07/06/2019 9:16 AM 07/06/19 20 Venous) DENTAL AIDE 12:32 PM DENTAL AIDE Laila Loco APRN, CNP LAB BLOOD ORDERABLES Performing Organization Address City/[facility] Code Phon e Number [facility] [address] [place] [phone] (ABNORMAL) Comprehensive metabolic panel (07/06/2019 9:16 AM DENTAL AIDE) Patholo gist Method Time Signature Total Protein 8.6 (H) 6.3 - 8.2 07/06/2019 [facility] g/dL 1:32 PM [facility] Albumin, Serum 4.5 3.5 - 5.0 07/06/2019 [facility] g/dL 1:32 PM [facility] Total Bilirubin 1.3 (H) 0.1 - 1.0 07/06/2019 [facility] mg/dL 1:32 PM [facility] AST 26 8 - 48 U/L 07/06/2019 [facility] 1:32 PM [facility] Alkaline 134 (H) 38 - 128 07/06/2019 [facility] Phosphatase U/L 1:32 PM [facility] ALT (SGPT) 21 0 - 49 U/L 07/06/2019 [facility] 1:32 PM [facility] Sodium 140 135 - 145 07/06/2019 [facility] mEq/L 1:32 PM [facility] Potassium 4.2 3.5 - 5.1 07/06/2019 [facility] mEq/L 1:32 PM [facility] Chloride 100 98 - 107 07/06/2019 [facility] mEq/L 1:32 PM [facility] CO2 28 22 - 31 07/06/2019 [facility] mmol/L 1:32 PM [facility] BUN 13 5 - 25 07/06/2019 [facility] mg/dL 1:32 PM [facility] Creatinine 1.2 0.6 - 1.4 07/06/2019 [facility] mg/dL 1:32 PM [facility] Glucose 117 (H) 70 - 100 07/06/2019 [facility] mg/dL 1:32 PM [facility] Calcium, Total,S 9.7 8.4 - 10.2 07/06/2019 [facility] mg/dL 1:32 PM [facility] Fasting? Yes 07/06/2019 [facility] 9:21 AM [facility] Specimen Anatomical Collection Method Collection Time Receive d Time (Source) Location / / Volume Laterality Blood 07/06/2019 9:16 AM 0 DENTAL AIDE 12:32 PM DENTAL AIDE Laila Loco APRN, CULINARY ARTIST LAB BLOOD ORDERABLES Performing Organization Address City/State/ZIP Code Phon e Number [facility] [address] [place] [phone] CBC Branch Off w/Diff (07/06/2019 9:16 AM DENTAL AIDE) P athologist Signature WBC 7.1 3.5 - 10.5 07/06/2019 [facility] K/uL 9:33 AM DENTAL AIDE [place] RBC 5.12 4.30 - 07/06/2019 [facility] 5.70 M/uL 9:33 AM DENTAL AIDE [place] Hemoglobin 15.5 13.5 - 07/06/2019 [facility] 17.5 g/dL 9:33 AM DENTAL AIDE [place] Hematocrit 46.5 38.0 - 07/06/2019 [facility] 50.0 % 9:33 AM DENTAL AIDE [place] Platelets 242 150 - 450 07/06/2019 [facility] K/uL 9:33 AM DENTAL AIDE [place] MCV 90.8 81.2 - 07/06/2019 [facility] 95.1 fL 9:33 AM DENTAL AIDE [place] MCH 30.3 26.0 - 07/06/2019 [facility] 32.0 pg 9:33 AM DENTAL AIDE [place] MCHC 33.3 32.0 - 07/06/2019 [facility] 36.0 g/dL 9:33 AM DENTAL AIDE [place] RDW 14.5 11.8 - 07/06/2019 [facility] 15.6 % 9:33 AM DENTAL AIDE [place] Lymphocytes % 19.8 18.0 - 07/06/2019 [facility] 45.0 % 9:33 AM DENTAL AIDE [place] Mid-size Cells 9.1 3.3 - 10.1 07/06/2019 [facility] % 9:33 AM DENTAL AIDE [place] Granulocytes/Urszula 71.1 45.8 - 07/06/2019 [facility] trophils 73.7 % 9:33 AM DENTAL AIDE [place] Lymphocytes 1.4 0.9 - 2.9 07/06/2019 [facility] Absolute K/uL 9:33 AM DENTAL AIDE [place] MIDS Absolute 0.6 0.2 - 0.8 07/06/2019 [facility] K/uL 9:33 AM DENTAL AIDE [place] Granulocytes/Urszula 5.1 2.1 - 8.7 07/06/2019 [facility] trophils K/uL 9:33 AM DENTAL AIDE [place] Absolute Specimen Anatomical Collection Method Collection Time Receive d Time (Source) Location / / Volume Laterality Blood 07/06/2019 9:16 AM 0 9:21 DENTAL AIDE AM DENTAL AIDE Laila Loco APRN, CULINARY ARTIST LAB BLOOD ORDERABLES Performing Organization Address City/State/ZIP Code Phon e Number [facility] [place] [address] [place] [phone] documented in this encounter Visit Diagnoses Diagnosis Decreased appetite - Primary Anorexia documented in this encounter Care Teams Bliss Press Operator Relationship Specialty Start Date End Date Laila Loco APRN, CULINARY ARTIST PCP - General 12/09/17 01/10/[address] [place] [address] [place] [id number] documented as of this encounter
--- OUTSIDE RECORDS SUMMARY | 2021-12-17 09:42 | XMS_ITS | Encounter Summary ---
:1940 Author Organization [facility] Address [address] [place] [address] Care Team Providers Name Role Phone None, Pcp Primary Care Provider Unavailable Reason for Visit Reason Onset Date Comments med question 03/31/2020 Encounter Details Date Type Department Care Team Description 03/31/2020 Telephone Mongo Elisha Woodward MD med question [address] [place], [place] [address] [place], [place] [phone] (Wo rk) Social History Tobacco Use Types [...] Telephone Encounter - Guillermina Bradford LPN - 03/31/2020 11:06 AM CST The patient was informed to follow the directions on the Debrox bottle. He will return to our clinicin a few days after doing the Debrox. Iformed to call ahead to schedule with the nurse. R ANALYST Telephone Encounter - Janki Ortiz - 03/31/2020 9:47 AM CST Pt has question about how to take his ear drops? R ANALYST documented in this encounter Plan of Treatment Not on filedocumented as of this encounter Visit Diagnoses Not on filedocumented in this encounter Care Teams Malted Milk Mixer Relationship Specialty Start Date End Date None, Pcp PCP - General Bottomer Operator 03/29/20 12/31/20 [address] [place] [address] documented as of this encounter
--- OUTSIDE RECORDS SUMMARY | 2021-12-17 09:42 | XMS_ITS | Encounter Summary ---
:1940 Author Organization [facility] Address [address] [place] [address] Care Team Providers Name Role Phone None, Pcp Primary Care Provider Unavailable Encounter Details Date Type Department Care Team Description 09/01/2020 Lab [place] Anemia, unspecified type [address] [place], [place] [address] Social History Tobacco Use [...] Procedure Name Priority Date/Time Associated Comments Diagnosis IMMUNOCHEMICAL FECAL Routine 09/01/2020 8:10 Anemia, unspecifi ed Results for this OCCULT BLOOD (IFOBT)- AM CDT type proced ure are in OUPATIENT the results section. documented in this encounter Results (ABNORMAL) Immunochemical Fecal Occult Blood (iFOBT)- outpatient (09/01/2020 8:10 AM CDT) [facility] gist Method Time Signature Immunochemical POSITIVE Negative 09/01/2020 [place] Fecal Occult (A) 1:09 PM CDT [facility] Blood [facility] Specimen Anatomical Collection Method Collection Time Receive d Time (Source) Location / / Volume Laterality Stool 09/01/2020 8:10 AM CDT 12:36 PM CDT D. Dontrell Woodward MD LAB BODY FLUIDS AND STOOLS O RDERABLES Performing Organization Address City/State/ZIP Code Phon e Number [facility] [address] [place] [address] documented in this encounter Visit Diagnoses Diagnosis Anemia, unspecified type documented in this encounter Care Teams Trim Machine Adjuster Relationship Specialty Start Date End Date None, Pcp PCP - General Scene Painter 03/29/20 12/31/[address] [facility] [place] [address] documented as of this encounter
--- OUTSIDE RECORDS SUMMARY | 2021-12-17 09:42 | XMS_ITS | Encounter Summary ---
:1940 Author Organization [facility] Address [address] [place] [address] Care Team Providers Name Role Phone Elisha Woodward MD Primary Care Provider Encounter Details Date Type Department Care Team Description 07/05/2019 Telephone Margarito Love Laila Loco, [address] FINANCIAL ADVISER, [place], [place] [address] [address] [facility] [address] [phone] [place], [place] [address] Social History Tobacco Use [...] on filedocumented in this encounter Care Teams Station Mechanic Helper Relationship Specialty Start Date End Date Elisha Woodward MD PCP - General 01/01/[address] [place] [address] documented as of this encounter
--- OUTSIDE RECORDS SUMMARY | 2021-12-17 09:42 | XMS_ITS | Encounter Summary ---
:[address] [facility] Address [address] [place] [address] Care Team Providers Name Role Phone None, Pcp Primary Care Provider Unavailable Encounter Details Date Type Department Care Team Description 08/21/2020 Lab [place] Screening for deficiency ane elif; [address] Essential hypertension; [place], [place] [address] Diabetes mellitus screening; [phone] Hyperlipidemia, unspecified hyperlipidemia type Social History Tobacco Use Types Packs/Day Years [...] Name Priority Date/Time Associated Diagnosis Comme nts GLOMERULAR Routine 08/21/2020 10:31 Essential hyper tension Results for this FILTRATION RATE AM CDT Diabetes mellitus procedu re are in screening the results section. CBC BRANCH OFFICE Routine 08/21/2020 10:31 Result s for this W/DIFF AM CDT procedure are i n the results section. LIPID PANEL Routine 08/21/2020 10:31 Hyperlipidemia, Results for this AM CDT unspecified procedure are i n hyperlipidemia type the resu lts section. BASIC METABOLIC Routine 08/21/2020 10:31 Essential hyper tension Results for this PANEL AM CDT Diabetes mellitus procedure are in screening the results section. documented in this encounter Results Glomerular filtration rate (GFR) (08/21/2020 10:31 AM CDT) athologist Signature GFR >60 08/21/2020 [facility] 12:57 PM CDT [facility] >60 08/21/2020 [facility] [place] GFR 12:57 PM CDT [facility] Comment: GFR calculated from serum creatinine v alue Chronic Kidney Disease less than 60 mL/m in/1.73 m2 Kidney Failure less than 15 mL/min/1.73 m2 Note: effective 09/17/06 IDMS-Traceable MDRD Study Equation used. Specimen Anatomical Collection Method Collection Time Receive d Time (Source) Location / / Volume Laterality 08/21/2020 10:31 08/21/2020 AM CDT 10:31 AM CDT D. Dontrell Woodward MD LAB BLOOD ORDERABLES Performing Organization Address City/State/ZIP Code Phon e Number [facility] [address] [place] [address] (ABNORMAL) CBC Branch Off w/Diff (08/21/2020 10:31 AM CDT) Patholo gist Method Time Signature WBC 6.7 3.5 - 10.5 08/21/2020 [facility] [place] K/uL 10:41 AM CDT [place] RBC 4.50 4.30 - 08/21/2020 [facility] [place] 5.70 M/uL 10:41 AM CDT [place] Hemoglobin 12.8 (L) 13.5 - 08/21/2020 [facility] [place] 17.5 g/dL 10:41 AM CDT [place] Hematocrit 39.8 38.0 - 08/21/2020 [facility] [place] 50.0 % 10:41 AM CDT [place] Platelets 218 150 - 450 08/21/2020 [facility] [place] K/uL 10:41 AM CDT [place] MCV 88.4 81.2 - 08/21/2020 [facility] [place] 95.1 fL 10:41 AM CDT [place] MCH 28.4 26.0 - 08/21/2020 [facility] [place] 32.0 pg 10:41 AM CDT [place] MCHC 32.2 32.0 - 08/21/2020 [facility] [place] 36.0 g/dL 10:41 AM CDT [place] RDW 14.7 11.8 - 08/21/2020 [facility] [place] 15.6 % 10:41 AM CDT [place] Lymphocytes % 27.0 % 08/21/2020 [facility] [place] 10:41 AM CDT [place] Mid-size Cells 7.5 % 08/21/2020 [facility] [place] 10:41 AM CDT [place] Granulocytes/Urszula 65.5 % 08/21/2020 [facility] [place] trophils 10:41 AM CDT [place] Lymphocytes 1.8 0.9 - 2.9 08/21/2020 [facility] [place] Absolute K/uL 10:41 AM CDT [place] MIDS Absolute 0.5 0.4 - 1.5 08/21/2020 [facility] [place] K/uL 10:41 AM CDT [place] Granulocytes/Urszula 4.4 1.7 - 7.0 08/21/2020 [facility] [place] trophils K/uL 10:41 AM CDT [place] Absolute Specimen Anatomical Collection Method Collection Time Receive d Time (Source) Location / / Volume Laterality 08/21/2020 10:31 08/21/2020 AM CDT 10:35 AM CDT D. Dontrell Woodward MD LAB BLOOD ORDERABLES Performing Organization Address City/State/ZIP Code Phon e Number [facility] [place] [place] [address] [place] [address] (ABNORMAL) Lipid panel (08/21/2020 10:31 AM CDT) athologist Signature Cholesterol 166 0 - 199 08/22/2020 [facility] mg/dL 2:11 PM CDT [facility] Comment: Recommended by National Cholesterol Education Program (ATP III) -------- Cholesterol Ranges -------- <200 ?Desirable 200-239 ? Borderline high >=240 ? High Triglycerides 167 (H) 0 - 149 mg/dL 08/22/2020 2:11 PM CDT [facility] Comment: -------- TRIG Ranges -------- <150 ?Normal 150-199 ? Borderline high 200-499 ? High >=500 ? Very high HDL 37 (L) 40 - 250 mg/dL 08/22/2020 2:11 PM CDT [facility] Comment: -------- HDL Ranges -------- <40 ?Low 40-59 ?Normal >=60 ? Optimal LDL Calculated 96 0 - 99 mg/dL 08/22/2020 2:11 PM CDT [facility] Comment: -------- LDL Ranges -------- <100 ? Optimal 100-129 ?Near optimal/above op timal 130-159 ?Borderline high 160-189 ?High >=190 ?Very high Specimen Anatomical Collection Method Collection Time Receive d Time (Source) Location / / Volume Laterality Blood 08/21/2020 10:31 08/22/2020 AM CDT 12:50 PM CDT D. Dontrell Woodward MD LAB BLOOD ORDERABLES Performing Organization Address City/State/ZIP Code Phon e Number [facility] [address] [place] [address] (ABNORMAL) Basic metabolic panel (08/21/2020 10:31 AM CDT) P athologist Signature Sodium 142 135 - 145 08/21/2020 [facility] [place] mmol/L 12:57 PM CDT [place] Potassium 3.8 3.5 - 5.1 08/21/2020 [facility] [place] mmol/L 12:57 PM CDT [place] Comment: . Chloride 105 98 - 107 mmol/L 08/21/2020 12:57 PM CDT [facility] [place] [place] Comment: . CO2 27 22 - 31 mmol/L 08/21/2020 12:57 PM CDT [facility] [place] Comment: . Creatinine 1.0 0.6 - 1.4 mg/dL 08/21/2020 12:57 PM CDT [facility] [place] [place] Comment: . BUN 9 5 - 25 mg/dL 08/21/2020 12:57 PM CDT [facility] [place] [place] Comment: . Glucose 105 (H) 70 - 100 mg/dL 08/21/2020 12:57 PM [facility] [place] CDT Calcium, Total,S 8.7 8.4 - 10.2 mg/dL 08/21/2020 12:57 PM [facility] [place] [place] CDT Comment: . Fasting? Yes 08/21/2020 10:35 AM CDT [facility] [place] Specimen Anatomical Collection Method Collection Time Receive d Time (Source) Location / / Volume Laterality Blood 08/21/2020 10:31 08/21/2020 AM CDT 10:35 AM CDT D. Dontrell Woodward MD LAB BLOOD ORDERABLES Performing Organization Address City/State/ZIP Code Phon e Number [facility] [place] [place] [address] [place] [address] documented in this encounter Visit Diagnoses Diagnosis Screening for deficiency anemia Screening for other and unspecified defi ciency anemia Essential hypertension Unspecified essential hypertension Diabetes mellitus screening Screening for diabetes mellitus Hyperlipidemia, unspecified hyperlipidem ia type documented in this encounter Care Teams Javascript Ui Developer Relationship Specialty Start Date End Date None, Pcp PCP - General Shipping Checker 03/29/20 12/31/20 [address] [place] [address] documented as of this encounter
--- OUTSIDE RECORDS SUMMARY | 2021-12-17 09:42 | XMS_ITS | Encounter Summary ---
:1940 Author Organization [facility] Address [address] [place] [address] Care Team Providers Name Role Phone aLila Loco MEDICAL DEVICE, CLAIM TAKER Primary Care Provider [phone] Reason for Visit Reason Onset Date Comments Return call 04/26/2019 Encounter Details Date Type Department Care Team Description 04/26/2019 Telephone Lizella Laila Loco, Return call [address] MEDICAL DEVICE, CLAIM TAKER [place], [place] [address] [address] [facility] [address] [phone] [place], [place] [address] Social History Tobacco Use [...] this encounter Miscellaneous Notes Telephone Encounter - Laila Loco APRN, IRA - 04/26/2019 1:52 PM 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 ROAD CAR CLEANING SUPERVISOR Telephone Encounter - Aliza Renee - 04/26/2019 1:22 PM CST Patient returned call from Rajan Loco. ROAD CAR CLEANING SUPERVISOR documented in this encounter Plan of Treatment Not on filedocumented as of this encounter Visit Diagnoses Not on filedocumented in this encounter Care Teams Staking Technician Relationship Specialty Start Date End Date Laila Loco APRN, IRA PCP - General 12/09/17 01/10/20 [address] [place] [address] documented as of this encounter
--- OUTSIDE RECORDS SUMMARY | 2021-12-17 09:42 | XMS_ITS | Encounter Summary ---
:1940 Author Organization [facility] Address [address] [place] [address] Care Team Providers Name Role Phone None, Pcp Primary Care Provider Unavailable Reason for Visit Reason Onset Date Comments Labs Only 08/30/2020 Encounter Details Date Type Department Care Team Description 08/30/2020 Telephone [place] None, Pcp Labs Only [address] [place], [place] [address] [place] [address] Social History Tobacco Use Types Packs/Day [...] Telephone Encounter - Nisha Morrison RN - 08/31/2020 2:16 PM CDT Patient informed Telephone Encounter - Elisha Woodward MD - 08/30/2020 3:31 PM CDT Order for blood testing for blood IFOBT has been placed. You may call the patient back to worm picker this kit. Telephone Encounter - Melinda Le MA - 08/30/2020 3:27 PM CDT The hospital lab called and stated that the patient's IFOBT had to be cancelled due to the specimen being too thick. Please replace order and than the patient can be called to worm picker another kit. documented in this encounter Plan of Treatment Not on filedocumented as of this encounter Results (ABNORMAL) Immunochemical Fecal Occult Blood (iFOBT)- outpatient (09/01/2020 8:10 AM CDT) [facility] gist Method Time Signature Immunochemical POSITIVE Negative 09/01/2020 [place] Fecal Occult (A) 1:09 PM CDT [facility] Specimen Anatomical Collection Method Collection Time Receive d Time (Source) Location / / Volume Laterality Stool 09/01/2020 8:10 AM CDT 12:36 PM CDT Elisha Woodward MD LAB BODY FLUIDS AND STOOLS O RDERABLES Performing Organization Address City/State/ZIP Code Phon e Number [facility] [address] [place] [address] documented in this encounter Visit Diagnoses Diagnosis Anemia, unspecified type - Primary documented in this encounter Care Teams Personal Care Attendant Relationship Specialty Start Date End Date None, Pcp PCP - General Home Comfort Advisor 03/29/20 12/31/20 [address] [place] [address] documented as of this encounter
--- OUTSIDE RECORDS SUMMARY | 2021-12-17 09:43 | XMS_ITS | Encounter Summary ---
:1940 Author Organization [facility] Address [address] [place] [address] Care Team Providers Name Role Phone Laila Loco APRN, [place] Primary Care Provider [phone] Reason for Visit Reason Comments Annual Exam Encounter Details Date Type Department Care Team Description 04/22/2019 [place] Annual physical exam (Primar y Dx); [address], [place] Hyperlipidemia, unspecified hyperlipidem ia type; [place] [address] 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, unspecified vessel or lesion type, unspecified whether [place] or transplanted heart; [address] [place], [place] Cough; [phone] [id number] Prediabetes; [phone] Other fatigue; (Work) Medication jose toring encounter; Screening PSA ( prostate specific antigen); Screening, anem ia, deficiency, iron Social History Tobacco Use Types Packs/Day Years [...] Sign Reading Time Taken Comments Blood Pressure 148/86 04/22/2019 9:44 AM SEMICONDUCTOR LAB TECHNICIAN Pulse 86 04/22/2019 8:27 AM SEMICONDUCTOR LAB TECHNICIAN Temperature 35.8 ??C (96.4 ??F) 04/22/2019 8:27 AM SEMICONDUCTOR LAB TECHNICIAN Respiratory Rate 16 04/22/2019 8:27 AM SEMICONDUCTOR LAB TECHNICIAN Oxygen Saturation 94% 04/22/2019 8:27 AM SEMICONDUCTOR LAB TECHNICIAN Inhaled Oxygen Concentration - - Weight 65 kg (143 lb 4.8 oz) 04/22/2019 8:27 AM SEMICONDUCTOR LAB TECHNICIAN Height 168 cm (5' 6.14) 04/22/2019 8:27 AM SEMICONDUCTOR LAB TECHNICIAN Body Mass Index 23.03 04/22/2019 8:27 AM SEMICONDUCTOR LAB TECHNICIAN documented in this encounter Patient Instructions Patient InstructionsChrismanuel Loco APRN, CNP - 04/22/2019 8:40 AM SEMICONDUCTOR LAB TECHNICIAN Will call with the lab results and official radiology report of the chest xray Could consider the Shingrix, pharmacy setting CONDUCTOR LAB TECHNICIAN documented in this encounter Progress Notes Laila Loco APRN, CNP - 04/22/2019 8:40 AM CST Well Adult - Estab Subjective Patient ID: Obey Vines is a 79 y.o. male presenting for the following concerns. Chief Complaint Patient presents with ??? Annual Exam HPI: The patient is a pleasant 79-year-old right hand dominant male [facility]. The patient had a colonoscopy on 07/10/16, and is due in 5 years for a personal history of colon polyps, 2021. The patient had the Pneumovax in 2006, Prevnar 2017, and Tdap in 2011. The patient's past medical history includes basal cell skin cancer, depression, carpal tunnel syndrome, elevated liver enzymes, fractured thoracic vertebral bodies, colon polyps, polymyalgia rheumatica, left carotid stenosis, status post endarterectomy, vitamin D deficiency, gastric esophageal reflux disease, hyperlipidemia, osteoporosis, TIA, coronary artery disease, and hearing loss. The patient prakash Protonix 40 mg daily for his GERD. He is on Lipitor 80 mg and Zetia 10 mg daily for his hyperlipidemia. The patient is currently Plavix 75 mg daily following his cardiac stent placement in August,, for one year. The patient is currently on metoprolol extended release 25 mg daily and an aspirin d aily for his coronary artery disease. The patient wears hearing aids bilaterally, and has a history of cerumen impactions. The patient has a history of osteoporosis diagnosed in 2017, is currently on acalcium and Vitamin D supplement, and has declined endocrinology evaluation and treatment. The patien t???s Vitamin D level was 36.2 on 12/01/17. The patient had a basal cell cancerous lesion removed from the tip from his right ear. The patient reports about a month ago his appetite was diminished, and he possibly lost some weight,which he felt it was due to his medications. The patient reports he held medication/s for a short period of time, hard to decipher which ones, felt better, than resumed the medications. The patient ackn owledges he was drinking to much caffeine as well, as he enjoys spending time in local restaurants visiting, and was likely consuming over 6 cups of coffee a day. The patient decreased the amount of caffeine he consumed over the past month, which may be contributing to his appetite returning. The patient is active spending time with his grandchildren, watching their sports events. 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 The following portions of the patient's chart [...] days., Disp: 6 tablet, Rfl: 0 ??? calcium-vitamin D3-vitamin K (VIACTIV) 500-500-40 MG-UNT-MCG chewable tablet chewable tablet, Chew 2 (two) times a day , Disp: , Rfl: ??? clopidogrel (PLAVIX) 75 MG tablet, Take 1 tablet (75 mg total) by mouth 1 (one) time each day, Disp: 90 tablet, Rfl: 3 ??? ezetimibe (ZETIA) 10 MG [...] before breakfast, Disp: 90 tablet, Rfl: 3 Allergies Allergen Reactions ??? Oxycodone Confusion Immunization History Administered Date(s) Administered ??? Flu Vaccine High Dose 65yrs and Older IM 07/05/2013, 03/24/2015 ??? Influenza (IM) Preservative Free 03/03/2007 ??? Influenza, Unspecified 03/24/2015 ??? Pneumococcal Conjugate 13-Valent 01/09/2018 ??? Pneumococcal Polysaccharide 06/10/2006 ??? Td 08/29/2003 ??? Tdap 01/08/2012 Past Medical History: Diagnosis Date ??? Carotid [...] ??? CAROTID ENDARTERECTOMY ??? JOINT REPLACEMENT ??? VASECTOMY Family History Problem Relation Age of Onset ??? Cancer Paternal Grandmother ??? Heart disease Mother ??? Hypertension Mother ??? Stroke Father ??? Heart disease Sister ??? Hypertension Sister Social History Socioeconomic History ??? Marital status: Spouse name: Not on file ??? Number of children: Not on file ??? Years of education: Not on file ??? Highest education level: Not on file Occupational History ??? Not on file Social Needs ??? Financial resource strain: Not on file ??? Food insecurity: Worry: Not on file Inability: Not on file ??? Transportation needs: Medical: Not on file Non-medical: Not on file Tobacco Use ??? Smoking status: Never Smoker ??? Smokeless tobacco: Never Used Substance and Sexual Activity ??? Alcohol use: No Frequency: Never ??? Drug use: No ??? Sexual activity: Not on file Lifestyle ??? Physical activity: Days per week: Not on file Minutes per session: Not on file ??? Stress: Not on file Relationships ??? Social connections: Talks on phone: Not on file Gets together: Not on file Attends restoration service: Not on file Active member of club or organization: Not on file Attends meetings of clubs or organizations: Not on file Relationship status: Not on file ??? Intimate partner violence: Fear of current or ex partner: Not on file Emotionally abused: Not on file Physically abused: Not on file Forced sexual activity: Not on file Other Topics Concern ??? Not on file Social History Narrative ??? Not on file REVIEW OF SYSTEMS: GENERAL: No fever, chills, sweats, and/or change in weight. The patient had a change in appetite about a month ago, which improved after holding medication/s for a short period of time and decreasing his caffeine consumption. The patient does feel fatigued, which is not new, not real concerning, and likely the aging process. INTEGUMENTARY: No rashes, lesions, and/or pruritus. The patient had skin cancer removed from his right ear. HEAD/NECK: No headache or dizziness. EYES: No visual changes. The patient wears eye glasses and sees an eye doctor on a regular basis. EARS: The patient has hearing loss and wears hearing aides. No ear pain and/or tinnitus. NOSE: No epistaxis, discharge, sneezing, and/or chronic sinusitis. MOUTH/THROAT: No problems with teeth, gums, and/or trouble swallowing. The patient has false teeth upper teeth and a partial lower. The patient sees a dentist on a regular basis. The patient has bad breath from his GERD and sucks on breath mints. CARDIOVASCULAR: See HPI. The patient has history of CAD and hyperlipidemia. No chest pain, pressure,palpitations, peripheral edema, lightheadedness, dizziness, presyncope, syncope, and/or cardiac murmurs. RESPIRATORY: The patient reports he has a deep cough once in awhile, and for an unspecified period of time. No dyspnea on exertion, asthma and/or wheezing. BREASTS: No pain, masses, discharge and/or change in appearance. GASTROINTESTINAL: See HPI. The patient has a history of GERD and is on Protonix 40 mg daily with fair control of his symptoms. The patient's appetite was diminished about a month ago, he decreased the amount of coffee he drinks, and missed a few doses of his medication/s, with resolution of his symptoms. No nausea, vomiting, abdominal pain, hematemesis, diarrhea, constipation, melena, and/or hematochezia. The patient has a history of colon polyps, last colonoscopy was on 07/10/16, due in 5 years, 2021. GENITOURINARY: The patient experiences urinary frequency, which he feels is age related, and non-concerning. No dysuria, urinary urgency, nocturia and/or hematuria. ENDOCRINOLOGY: No thyroid dysfunction. The patient has prediabetes. He has osteoporosis and is currently on a Calcium and vitamin D supplement. MUSCULOSKELETAL: See HPI. The patient has chronic left shoulder pain, is receiving a steroid injection every 3 months; his last injection was 2 months ago. The patient can consider surgery after he discontinues his Plavix in August,. The patient had a right shoulder replacement. No myalgias. NEUROLOGICAL: No numbness, tingling, weakness, migraine headache, and/or seizures. The patient did have a period of time after his cardiac stent placement in August,, when he was becoming forgetful, it was difficult for him to concentrate, and truly a mentation change, which has since cleared. The patient feels his symptoms were due to anesthesia. PSYCHIATRIC: No anxiety. The patient feels depressed as his friends have . Objective Visit Vitals BP 148/86 (BP Location: Left arm, Patient Position: Sitting) Pulse 86 Temp (!) 35.8 ??C (96.4 ??F) (Temporal) Resp 16 Ht 1.68 m (5' 6.14) Wt 65 kg (143 lb 4.8 oz) SpO2 94% BMI 23.03 kg/m?? Smoking Status Never Smoker BSA 1.74 m?? GENERAL: The patient is alert, orientated and in no apparent distress. HEET: Head normocephalic. Eyes - pupils round and reactive to light. EOMs intact without nystagmus. Ears - normal canals, normal, pearly cervantes TMs bilaterally. Missing the top of his right ear, where skin cancer was removed. Throat - normal oropharynx. Uvula rises midline. No erythema. Full upper and lower partial plate. NECK: Supple. No cervical or posterior lymphadenopathy. No thyromegaly. Scar along the left carotid area. INTEGUMENTARY: Skin is warm and dry. No evidence of lesions. CARDIOVASCULAR: Normal heart rate and rhythm. No murmur. No peripheral edema. Positive peripheral pulses, x4. GASTROINTESTINAL: Abdomen is soft, nontender, no organomegaly, and positive bowel sounds. RESPIRATORY: Lungs are clear, bilaterally. No wheezing. MUSCULOSKELETAL: The patient moves freely about the room. NEUROLOGICAL: The patient is alert and oriented to person, place, time, and situation. PSYCHIATRIC: The patient's affect is appropriate. DIAGNOSTICS: Lipid, Comprehensive Panel, HGB A1c, CBC with Diff, and PSA. Chest xray, appears normalofficial radiology report is pending. Assessment/Plan Obey was seen today for annual exam. Diagnoses and all orders for this visit: Annual physical exam (Primary) Hyperlipidemia, unspecified hyperlipidemia type - Comprehensive metabolic panel; Future - Lipid panel; Future Coronary artery 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 pectoris, unspecified vessel or lesion type, unspecified whether [place] or transplanted heart - Comprehensive metabolic panel; Future Cough - X-ray Chest 2 Views; Future - X-ray Chest 2 Views Prediabetes - Hemoglobin A1c; Future Other fatigue - CBC Branch Off w/Diff; Future Medication monitoring encounter - Comprehensive metabolic panel; Future Screening PSA (prostate specific antigen) - PSA; Future Screening, anemia, deficiency, iron - CBC Branch Off w/Diff; Future Discussed the plan of care with the patient. The patient will continue a baby aspirin for life, Plavix 75 mg daily x1 year status post cardiac stent placement in August 2018, metoprolol 25 mg extended release for his coronary artery disease, Protonix 40 mg daily for his esophageal reflux, and Lipitor 80 mg daily and Zetia 10 mg daily for his hyperlipidemia. The patient will continue a calcium and Vitamin D supplement for his osteoporosis. The patient will be due for a DEXA scan in 2019. Encouraged the patient to consider an endocrinology referral for his osteoporosis which he declined. The patient had a colonoscopy on 07/10/16, which will be due in 2021. The patient can consider the Flu shot, which he declines. The patient can consider the Shingrix immunization in a pharmacy setting, unavailable in the clinic at this time. The patient will be notified of his lab results. The patient agrees and understands this plan of care. ADDENDUM: Final impression of the chest xray: New peripheral right anterior basal lower lobe pneumonia. The patient was prescribed a Zpak and will repeat a chest xray in 2 weeks. Laila Loco APRN, [place] CONDUCTOR LAB TECHNICIAN documented in this encounter Plan of Treatment Not on filedocumented as of this encounter Procedures Procedure Name Priority Date/Time Associated Diagnosis Comme nts XR CHEST 2 VIEWS Routine 04/22/2019 9:46 AM Cough Resul ts for this SEMICONDUCTOR LAB TECHNICIAN procedure are i n the results section. documented in this encounter Results X-ray Chest 2 Views (04/22/2019 9:46 AM SEMICONDUCTOR LAB TECHNICIAN) Anatomical Region Laterality Modality Body Radiographic Imaging Specimen (Source) Anatomical Collection Method Collection Time Re ceived Time Location / / Volume Laterality 04/22/2019 9:46 AM SEMICONDUCTOR LAB TECHNICIAN Impressions 04/22/2019 9:54 AM SEMICONDUCTOR LAB TECHNICIAN IMPRESSION: New peripheral right anterior basal lowe r lobe pneumonia Narrative 04/22/2019 9:54 AM SEMICONDUCTOR LAB TECHNICIAN INDICATION: cough, crackles in the left lower lobe COMPARISON: 02/21/2015 FINDINGS: CXR: Min Two views: Frontal and lateral: There is a new peripheral right basal in filtrate which appears to be in the anterior basal right lower lobe.. ?? No pleural effusions. ??Mild hyperinflation is present. No pneumothorax. Procedure Note Diana Mcclure MD - 04/22/2019Formattin g of this note might be different from the original. INDICATION: cough, crackles in the left lower lobe COMPARISON: 02/21/2015 FINDINGS: CXR: Min Two views: Frontal and lateral: There is a new peripheral right basal in filtrate which appears to be in the anterior basal right lower lobe.. No pleural effusions. Mild hyperinflation is present. No pneumothorax. IMPRESSION: New peripheral right anterior basal lowe r lobe pneumonia Laila Loco APRN, CNP IMG XR PROCEDURES (ABNORMAL) Hemoglobin A1c (04/22/2019 9:37 AM SEMICONDUCTOR LAB TECHNICIAN) Analysis Performed At Patho logist Time Signature Hemoglobin A1C 5.9 (H) 4.0 - 5.6 04/22/2019 [place] % A1C 1:[address] [facility] Comment: Reference Range 4.0-5.6% is for non-preg nant adults >=18 yrs <5.6% ? Non-Diabetic 5.7-6.4% ??Increased risk of Diabetes >=6.5% ?Indicative of Diabetes <7.0% ? ADA goal for glycemic contro l Methodology may not detect all hemoglobi n variants which can affect A1c results. Method certified by National Glycohemoglobin Standardization Program. Specimen Anatomical Collection Method Collection Time Receive d Time (Source) Location / / Volume Laterality Blood 04/22/2019 9:37 AM 9 SEMICONDUCTOR LAB TECHNICIAN 12:30 PM SEMICONDUCTOR LAB TECHNICIAN Laila Loco APRN, [place] LAB BLOOD ORDERABLES Performing Organization Address City/State/ZIP Code Phon e Number [facility] [address] [place] [address] PSA (04/22/2019 9:37 AM SEMICONDUCTOR LAB TECHNICIAN) athologist Signature Total PSA 1.3 0.0 - 7.0 04/23/2019 [facility] ng/mL 2:09 PM SEMICONDUCTOR LAB TECHNICIAN CENTER [facility] Comment: The results from this or any other diagn ostic test should be used and interpreted only in the context of the overall clinical picture. Biotin levels in serum remain elevated f or up to 24 hours after oral or intravenous biotin adminis tration and may interfere with this assay to produce unr eliable results. Heterophilic antibodies in serum or plas ma samples may cause interference in immunoassays. ??Exposure to animal antigens, either in the environment or as part of treatment or imaging procedures, may have circulating anti-an imal antibodies present. These antibodies may interfere with the assay reagents to produce unreliable results. ??Results which are inconsistent with clinical observations indicate the need for additional testing. Specimen Anatomical Collection Method Collection Time Receive d Time (Source) Location / / Volume Laterality Blood 04/22/2019 9:37 AM 9 SEMICONDUCTOR LAB TECHNICIAN 12:39 PM SEMICONDUCTOR LAB TECHNICIAN Laila Loco APRN, CNP LAB BLOOD ORDERABLES Performing Organization Address City/State/ZIP Code Phon e Number [facility] [address] [place] [address] (ABNORMAL) Lipid panel (04/22/2019 9:37 AM SEMICONDUCTOR LAB TECHNICIAN) athologist Signature Cholesterol 175 0 - 199 04/22/2019 [facility] mg/dL 1:05 PM [facility] Comment: Recommended by National Cholesterol Education Program (ATP III) -------- Cholesterol Ranges -------- <200 ? Desirable 200-239 ? Borderline high >=240 ? High Triglycerides 121 0 - 149 mg/dL 04/22/2019 1:05 PM [facility] Comment: -------- TRIG Ranges -------- <150 ?Normal 150-199 ? Borderline high 200-499 ? High >=500 ? Very high HDL 44 40 - 60 mg/dL 04/22/2019 1:05 PM [facility] Comment: -------- HDL Ranges -------- <40 ?Low 40-59 ?Normal >=60 ? Optimal LDL Calculated 107 (A) 0 - 99 mg/dL 04/22/2019 1:05 PM [facility] Comment: -------- LDL Ranges -------- <100 ? Optimal 100-129 ?Near optimal/above op timal 130-159 ?Borderline high 160-189 ?High >=190 ?Very high Fasting? Yes 04/22/2019 9:45 AM [facility] Specimen Anatomical Collection Method Collection Time Receive d Time (Source) Location / / Volume Laterality Blood 04/22/2019 9:37 AM 9 SEMICONDUCTOR LAB TECHNICIAN 12:30 PM SEMICONDUCTOR LAB TECHNICIAN Laila Loco APRN, UTILITY AIDE LAB BLOOD ORDERABLES Performing Organization Address City/State/ZIP Code Phon e Number [facility] [address] [place] [phone] (ABNORMAL) Comprehensive metabolic panel (04/22/2019 9:37 AM SEMICONDUCTOR LAB TECHNICIAN) [facility] gist Method Time Signature Total Protein 8.3 (H) 6.3 - 8.2 04/22/2019 [place] g/dL 1:05 PM [facility] Albumin, Serum 4.3 3.5 - 5.0 04/22/2019 [place] g/dL 1:05 PM [facility] Total Bilirubin 1.4 (H) 0.1 - 1.0 04/22/2019 [place] mg/dL 1:05 PM [facility] AST 22 8 - 48 04/22/2019 [place] U/L 1:05 PM [facility] Alkaline 135 (H) 38 - 128 04/22/2019 [place] Phosphatase U/L 1:05 PM [facility] ALT (SGPT) 20 0 - 49 04/22/2019 [place] U/L 1:05 PM [facility] Sodium 144 135 - 145 04/22/2019 [place] mEq/L 1:05 PM [facility] Potassium 5.0 3.5 - 5.1 04/22/2019 [place] mEq/L 1:05 PM [facility] Chloride 103 98 - 107 04/22/2019 [place] mEq/L 1:05 PM [facility] CO2 30 22 - 31 04/22/2019 [place] mmol/L 1:05 PM [facility] BUN 13 5 - 25 04/22/2019 [place] mg/dL 1:05 PM [facility] Creatinine 1.3 0.6 - 1.4 04/22/2019 [place] mg/dL 1:05 PM [facility] Glucose 127 (H) 70 - 100 04/22/2019 [place] mg/dL 1:05 PM [facility] Calcium, Total,S 10.3 (H) 8.4 - 04/22/2019 [place] 10.2 1:05 PM [facility] mg/dL LABORATORY Specimen Anatomical Collection Method Collection Time Receive d Time (Source) Location / / Volume Laterality Blood 04/22/2019 9:37 AM 9 SEMICONDUCTOR LAB TECHNICIAN 12:30 PM SEMICONDUCTOR LAB TECHNICIAN Laila Loco APRN, UTILITY AIDE LAB BLOOD ORDERABLES Performing Organization Address City/State/ZIP Code Phon e Number [facility] [address] [place] [phone] CBC Branch Off w/Diff (04/22/2019 9:37 AM SEMICONDUCTOR LAB TECHNICIAN) P athologist Signature WBC 8.6 3.5 - 10.5 04/22/2019 [facility] K/uL 9:48 AM SEMICONDUCTOR LAB TECHNICIAN [place] RBC 4.94 4.30 - 04/22/2019 [facility] 5.70 M/uL 9:48 AM SEMICONDUCTOR LAB TECHNICIAN [place] Hemoglobin 15.1 13.5 - 04/22/2019 [facility] 17.5 g/dL 9:48 AM SEMICONDUCTOR LAB TECHNICIAN [place] Hematocrit 45.4 38.0 - 04/22/2019 [facility] 50.0 % 9:48 AM SEMICONDUCTOR LAB TECHNICIAN [place] Platelets 279 150 - 450 04/22/2019 [facility] K/uL 9:48 AM SEMICONDUCTOR LAB TECHNICIAN [place] MCV 91.9 81.2 - 04/22/2019 [facility] 95.1 fL 9:48 AM SEMICONDUCTOR LAB TECHNICIAN [place] MCH 30.6 26.0 - 04/22/2019 [facility] 32.0 pg 9:48 AM SEMICONDUCTOR LAB TECHNICIAN [place] MCHC 33.3 32.0 - 04/22/2019 [facility] 36.0 g/dL 9:48 AM SEMICONDUCTOR LAB TECHNICIAN [place] RDW 13.6 11.8 - 04/22/2019 [facility] [place] 15.6 % 9:48 AM SEMICONDUCTOR LAB TECHNICIAN [place] Lymphocytes % 18.8 18.0 - 04/22/2019 [facility] [place] 45.0 % 9:48 AM SEMICONDUCTOR LAB TECHNICIAN [place] Mid-size Cells 8.1 3.3 - 10.1 04/22/2019 [facility] % 9:48 AM SEMICONDUCTOR LAB TECHNICIAN [place] Granulocytes/Urszula 73.1 45.8 - 04/22/2019 [facility] [place] trophils 73.7 % 9:48 AM SEMICONDUCTOR LAB TECHNICIAN [place] Lymphocytes 1.6 0.9 - 2.9 04/22/2019 [facility] [place] Absolute K/uL 9:48 AM SEMICONDUCTOR LAB TECHNICIAN [place] MIDS Absolute 0.7 0.2 - 0.8 04/22/2019 [facility] [place] K/uL 9:48 AM SEMICONDUCTOR LAB TECHNICIAN [place] Granulocytes/Urszula 6.3 2.1 - 8.7 04/22/2019 [facility] [place] trophils K/uL 9:48 AM SEMICONDUCTOR LAB TECHNICIAN [place] Absolute Specimen Anatomical Collection Method Collection Time Receive d Time (Source) Location / / Volume Laterality Blood 04/22/2019 9:37 AM 9 9:37 SEMICONDUCTOR LAB TECHNICIAN AM SEMICONDUCTOR LAB TECHNICIAN Laila Loco APRN, UTILITY AIDE LAB BLOOD ORDERABLES Performing Organization Address City/State/ZIP Code Phon e Number [facility] [place] [address] [place] [id number] documented in this encounter Visit Diagnoses Diagnosis Annual physical exam - Primary Routine general medical examination at a health care facility Hyperlipidemia, unspecified hyperlipidem ia type 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, unspecified vessel or lesion type, unspecified whether [place] or transplant ed heart Cough Prediabetes Other abnormal glucose Other fatigue Medication monitoring encounter Encounter for therapeutic drug monitorin g Screening PSA (prostate specific antigen ) Special screening for malignant neoplasm of prostate Screening, anemia, deficiency, iron Screening for iron deficiency anemia documented in this encounter Care Teams Health Care / Medical Job Titles Relationship Specialty Start Date End Date Laila Loco APRN, UTILITY AIDE PCP - General 12/09/17 01/10/[address] [place] [address] [place] [id number] documented as of this encounter
--- OUTSIDE RECORDS SUMMARY | 2021-12-17 09:43 | XMS_ITS | Encounter Summary ---
:1940 Author Organization [facility] Address [address] [place] [address] Care Team Providers Name Role Phone Laila Loco BASE DRAW OPERATOR, WHEAT INSPECTOR Primary Care Provider [phone] Encounter Details Date Type Department Care Team Description 08/11/2018 Telephone [place] Laila Loco, [address] BASE DRAW OPERATOR, WHEAT INSPECTOR [place] [address] [address] [facility] [address] [phone] [place], [place] [address] Social History Tobacco Use [...] Notes Telephone Encounter - Aliza Renee - 08/11/2018 2:08 PM CDT Faxed. Telephone Encounter - Rosalee Simmons MA - 08/11/2018 2:05 PM CDT Please fax Rx to [facility] documented in this encounter Plan of Treatment Not on filedocumented as of this encounter Visit Diagnoses Not on filedocumented in this encounter Care Teams Director Law Enforcement Relationship Specialty Start Date End Date Laila Loco, BASE DRAW OPERATOR, WHEAT INSPECTOR PCP - General 12/09/17 01/10/20 100 [facility] [place] [id number] documented as of this encounter
--- OUTSIDE RECORDS SUMMARY | 2021-12-17 09:43 | XMS_ITS | Encounter Summary ---
:1940 Author Organization [facility] Address [address] [place] [address] Care Team Providers Name Role Phone Laila Loco COOK VEGETABLE, PRISONER CLASSIFICATION INTERVIEWER Primary Care Provider [phone] Reason for Visit Reason Onset Date Comments medication prior auth. 09/16/2018 Pantoprazole Sodi um [address] dr tablets Encounter Details Date Type Department Care Team Description 09/16/2018 Telephone [employer] Laila Loco, medication prior auth. [address] [place] (Pantoprazole Sodium [place], [place] [address] tablets) [phone] [place], [place] [address] Social History Tobacco Use [...] this encounter Miscellaneous Notes Telephone Encounter - Destiny Cody MA - 09/17/2018 7:29 AM CDT PA approved from 09/17/2018 - 09/17/2019. Pharmacy is notified. PA # [id number]. Telephone Encounter - Destiny Cody MA - 09/16/2018 8:11 AM CDT Pantoprazole Sodium 40MG dr tablets BIN: [id number] PCN: [id number] GROUP: PLAN: [employer] PHONE: [phone] ID: [id number] PA completed per [facility], sent to plan. Rizzo: [id number]. documented in this encounter Plan of Treatment Not on filedocumented as of this encounter Visit Diagnoses Not on filedocumented in this encounter Care Teams Lumber Bearer Relationship Specialty Start Date End Date Laila Loco APRN, PRISONER CLASSIFICATION INTERVIEWER PCP - General 12/09/17 01/10/20 100 [place] [address] documented as of this encounter
--- OUTSIDE RECORDS SUMMARY | 2021-12-17 09:43 | XMS_ITS | Encounter Summary ---
:1940 Author Organization [facility] Address [address] [place] [address] Care Team Providers Name Role Phone Laila Loco FIELD ASSESSOR, INVESTMENT SALES ASSISTANT Primary Care Provider [phone] Reason for Visit Reason Onset Date Comments Talk with Rajan Loco 08/25/2018 Encounter Details Date Type Department Care Team Description 08/25/2018 Telephone [place] Laila Loco, Talk with Rajan Loco [address] FIELD ASSESSOR, INVESTMENT SALES ASSISTANT [place], [place] [address] 100 [facility] [address] [phone] [place], [place] [address] Social History Tobacco Use [...] Encounter - Laila Loco APRN, IRA - 08/25/2018 10:01 AM CDT Spoke with the patient's regarding concerns for her 's memory, she feels is really not amemory deficit but more of the labs and responding and thinking, his speech seems slower, he is having a difficult time expressing himself, he is having trouble answering his phone's, it is hard for her to pinpoint this but the patient's family, friends and are concerned with his current symptomsdiscussed referring him to neurology for further evaluation he did have a normal head CT in August 2018 but feel this needs to be further explored. The patient will make a follow-up appointment this week to discuss this and will refer the patient. Telephone Encounter - Arti Amaya - 08/25/2018 8:56 AM CDT Pt's Astrid called to talk with Rajan Loco, per Rajan's request. She can be reached at [phone]. documented in this encounter Plan of Treatment Not on filedocumented as of this encounter Visit Diagnoses Not on filedocumented in this encounter Care Teams Preform Machine Operator Relationship Specialty Start Date End Date Laila Loco APRN, INVESTMENT SALES ASSISTANT PCP - General 12/09/17 01/10/[address] [place] [address] [facility] [address] documented as of this encounter
--- OUTSIDE RECORDS SUMMARY | 2021-12-17 09:43 | XMS_ITS | Encounter Summary ---
:[address] [facility] Address [address] [place] [address] Care Team Providers Name Role Phone Laila Loco APRN, AUTO SUSPENSION AND STEERING MECHANIC Primary Care Provider [phone] Reason for Visit Reason Comments Cerumen Impaction Encounter Details Date Type Department Care Team Description 10/15/2018 Office Visit Margarito Love Laila Loco Impacted cerumen of [address] M, ED, [place] right ear (Primary [place] [address] Dx) [address] [place] [address] Social History Tobacco Use Types Packs/Day Years [...] Sign Reading Time Taken Comments Blood Pressure 126/74 10/15/2018 1:11 PM CDT Pulse 63 10/15/2018 1:11 PM CDT Temperature 36.5 ??C (97.7 ??F) 10/15/2018 1:11 PM CDT Respiratory Rate 16 10/15/2018 1:11 PM CDT Oxygen Saturation 95% 10/15/2018 1:11 PM CDT Inhaled Oxygen Concentration - - Weight 66.7 kg (147 lb 0.8 oz) 10/15/2018 1:11 PM CDT Height 168 cm (5' 6.14) 10/15/2018 1:11 PM CDT Body Mass Index 23.63 10/15/2018 1:11 PM CDT documented in this encounter Patient Instructions Patient InstructionsChsulema Loco APRN, CNP - 10/15/2018 1:20 PM CDT Return every 6 months for an ear wash documented in this encounter Progress Notes Laila Loco APRN, CNP - 10/15/2018 1:20 PM CDT Estab Patient Visit Subjective Patient ID: Obey Vines is a 78 y.o. male presenting for the following concerns. Chief Complaint Patient presents with ??? Cerumen Impaction HPI: The patient is a pleasant 78-year-old male presenting ambulatory to the clinical setting today requesting to have cerumen removed from his right ear, as recommended by his rn ante partum. The patient has had decreased hearing. No ear pain or discomfort. The patient has a long-standing history of cerumen i mpactions, even before he started wearing hearing aides, and has ear washes periodically. ROS: EARS: See HPI. The patient has cerumen in his right ear and is requesting an ear wash. The following portions of the patient's chart were reviewed in this encounter and updated as appropriate: Tobacco Allergies Meds Med Hx Surg Hx Fam Hx Soc Hx Objective Visit Vitals BP 126/74 (BP Location: Left arm, Patient Position: Sitting) Pulse 63 Temp 36.5 ??C (97.7 ??F) (Temporal) Resp 16 Ht 1.68 m (5' 6.14) Wt 66.7 kg (147 lb 0.8 oz) SpO2 95% BMI 23.63 kg/m?? Smoking Status Never Smoker BSA 1.76 m?? GENERAL: The patient is alert, orientated, and in no apparent distress. EARS: Cerumen impaction in the right ear, minimal cerumen in the left ear. Ear wash was completed bynursing staff with a large amount of cerumen returns from the right ear, minimal from the left ear. The ears were re-examined and there is mild irritation along the distal right ear canal, normal pearly cervantes TM; left ear normal canal, normal pearly cervantes TM. DIAGNOSTICS: None. Assessment/Plan Obey was seen today for cerumen impaction. Diagnoses and all orders for this visit: Impacted cerumen of right ear (Primary) - Ear cerumen removal Discussed the plan of care with the patient. The patient should keep his right hearing aid out for period of 24 hours to let the ear canal completely dry. Patient should return every 6 months for an ear wash. The patient agrees and understands this plan of care. Laila Loco APRN, CNP Melinda Le MA - 10/15/2018 1:20 PM CDTAssociated Order(s): Ear cerumen removal Post-Procedure Diagnose(s): Impacted cerumen of right ear Nurse Procedure Note Ear cerumen removal Date/Time: 10/15/2018 1:59 PM Performed by: Melinda Le MA Authorized by: Laila Loco APRN, CNP Consent: Consent obtained: Verbal Consent given by: Patient Risks discussed: Dizziness and pain Procedure details: Location: R ear Procedure type: irrigation Post-procedure details: Inspection: TM intact Hearing quality: Improved Patient tolerance of procedure: Tolerated well, no immediate complications documented in this encounter Plan of Treatment Not on filedocumented as of this encounter Procedures Procedure Name Priority Date/Time Associated Diagnosis Comme nts EAR CERUMEN REMOVAL Routine 10/15/2018 1:20 PM Impacted cerume n of Results for this CDT right ear procedure are i n the results section. documented in this encounter Results Ear cerumen removal (10/15/2018 1:20 PM CDT) Narrative Laila Loco APRN, CNP - 019 1:20 PM CDT Melinda Le MA ? 10/15/2018 ??8:38 PM Ear cerumen removal Date/Time: 10/15/2018 1:59 PM Performed by: Melinda Le MA Authorized by: Laila Loco APRN, CNP Consent: ??Consent obtained: ??Verbal ??Consent given by: ??Patient ??Risks discussed: ??Dizziness and pain Procedure details: ??Location: ??R ear ??Procedure type: irrigation ?? Post-procedure details: ??Inspection: ??TM intact ??Hearing quality: ??Improved ??Patient tolerance of procedure: ??Swetha erated well, no immediate complications Laila Loco APRN, CNP IN CLINIC/BEDSIDE ORDERAB LES documented in this encounter Visit Diagnoses Diagnosis Impacted cerumen of right ear - Primary Impacted cerumen documented in this encounter Care Teams Alumni Relations Manager Relationship Specialty Start Date End Date Laila Loco APRN, CNP PCP - General 12/09/17 01/10/[address] [place] [id number] documented as of this encounter
--- OUTSIDE RECORDS SUMMARY | 2021-12-17 09:43 | XMS_ITS | Encounter Summary ---
:1940 Author Organization [facility] Address [address] [place] [address] Care Team Providers Name Role Phone Laila Loco OPERATOR CATALYST CONCENTRATION, ESTHETICIAN PERMANENT MAKEUP ARTIST Primary Care Provider [phone] Reason for Visit Reason Onset Date Comments Med refills needed 09/15/2018 Encounter Details Date Type Department Care Team Description 09/15/2018 Telephone [place] Laila Loco, Med refills needed [address] OPERATOR CATALYST CONCENTRATION, [place], [place] [address] [address] [facility] [address] [phone] [place], [place] [address] Social History Tobacco Use [...] Notes Telephone Encounter - Laila Loco APRN, IAR - 09/15/2018 10:06 AM CDT Contacted the patient and let him know that his medications were renewed and the Protonix replaces the omeprazole. Telephone Encounter - Arti Amaya - 09/15/2018 9:05 AM CDT Pt called stating he did call the pharmacy nut also needed to call his provider about two meds he needs refilled. One is Plavix, the other is something...sodium 40 ml, he thinks for his throat. Pt would like these sent to [facility]. Please call Pt at [phone] to advise. 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
--- OUTSIDE RECORDS SUMMARY | 2021-12-17 09:43 | XMS_ITS | Encounter Summary ---
:1940 Author Organization [facility] Address [address] [place] [address] Care Team Providers Name Role Phone Laila Loco APRN, LEG MAN Primary Care Provider [phone] Reason for Visit Reason Comments EARS PLUGGED Encounter Details Date Type Department Care Team Description 04/02/2019 Office Visit Margarito Love [place], Bilateral impacted [address] [place] (Primary Dx) [place] [address] [place], [place] [address]e. [phone] [address] [place] [address] Social History Tobacco Use Types Packs/Day Years [...] Sign Reading Time Taken Comments Blood Pressure 132/80 04/02/2019 10:41 AM QA AUTOMATION DEVELOPER Pulse 78 04/02/2019 10:41 AM QA AUTOMATION DEVELOPER Temperature 35.6 ??C (96.1 ??F) 04/02/2019 10:41 AM QA AUTOMATION DEVELOPER Respiratory Rate 16 04/02/2019 10:41 AM QA AUTOMATION DEVELOPER Oxygen Saturation 93% 04/02/2019 10:41 AM QA AUTOMATION DEVELOPER Inhaled Oxygen Concentration - - Weight 65.1 kg (143 lb 8.3 oz) 04/02/2019 10:41 AM QA AUTOMATION DEVELOPER Height 168 cm (5' 6.14) 04/02/2019 10:41 AM QA AUTOMATION DEVELOPER Body Mass Index 23.07 04/02/2019 10:41 AM QA AUTOMATION DEVELOPER documented in this encounter Progress Notes Greer Gar PA-C - 04/02/2019 11:00 AM CST Subjective Patient ID: Obey Vines is a 79 y.o. male. Chief Complaint Patient presents with ??? EARS PLUGGED HPI Patient is a 79-year-old white male who presents at the clinic today requesting to have his ears irrigated. He wears bilateral hearing aids and was to see his electronic publishing specialist a week or so ago. He was noted to have a cerumen impaction in one ear and presents to have the ears cleaned today. Denies any ear pain or systemic symptomology. family history includes Cancer in his paternal grandmother; Heart disease in his mother and sister; Hypertension in his mother and sister; Stroke in his father. Past Medical History: Diagnosis Date ??? Cancer (HCC) ??? Depression ??? GERD (gastroesophageal reflux disease) ??? Hyperlipidemia ??? Osteoporosis ??? TIA (transient ischemic attack) ??? Varicella ??? Visual impairment ??? Vocal cord paralysis Past Surgical History: Procedure Laterality Date ??? CAROTID ENDARTERECTOMY ??? JOINT REPLACEMENT ??? VASECTOMY reports that he has never smoked. He has never used smokeless tobacco. He reports that he does not drink alcohol or use drugs. Immunization History Administered Date(s) Administered ??? Flu Vaccine High Dose 65yrs and Older IM 07/05/2013, 03/24/2015 ??? Influenza (IM) Preservative Free 03/03/2007 ??? Influenza, Unspecified 03/24/2015 ??? Pneumococcal Conjugate 13-Valent 01/09/2018 ??? Pneumococcal Polysaccharide 06/10/2006 ??? Td 08/29/2003 ??? Tdap 01/08/2012 Review of Systems Constitutional: No fever, malaise, fatigue or weight loss. ENT: No congestion, ear pain, or sore throat. Objective Physical Exam Constitutional: Awake, alert, oriented, healthy appearing 29-year-old white male in no life threatening distresss. Grooming is appropriate Psychiatric: Affect is normal. Skin: [warm, pink, dry. Mucous membranes moist and intact .] Eyes: SOFÍA, EOMI. Non-injected. No exudate. ENT: Tympanic membranes politely occluded on the right. Partially occluded on the left. no difficulty hearing with utilization of hearing aids.. Nasal passages open. Throat is clear. No tonsilar exudate. No cervical lymphadenopathy. Endocrine: Thyroid palpates as normal. Cardiovascular: Heart is a regular rate and rhythm. Respiratory: Lung sounds clear, respirations even and unlabored. Musculoskeletal: [No peripheral edema noted. Neurologic: [Head is normal cephalic. Assessment/Plan Problem List Items Addressed This Visit Nervous Cerumen impaction - Primary Relevant Hx: Pt wears hearing aids bilaterally. History of recurrent cerumen impacation. Has ears cleared about three times a year. Does not use Q-tips. No ear pain. No systemic symptoms. Today's Plan: Bilateral cerumen impaction. Bilateral ear irrigation completed by nursing staff. Follow-up with computer programmer chief on a regular basis. Ears were irrigated by nursing staff for clearance. Patient had no concerns following irrigation. Will follow up on a as needed basis. AUTOMATION DEVELOPER documented in this encounter Miscellaneous Notes Assessment & Plan Note - Greer Gar PA-C - 04/02/2019 10:46 AM CSTAssociated Problem(s): Cerumen impaction Relevant Hx: Pt wears hearing aids bilaterally. History of recurrent cerumen impacation. Has ears cleared about three times a year. Does not use Q-tips. No ear pain. No systemic symptoms. Today's Plan: Bilateral cerumen impaction. Bilateral ear irrigation completed by nursing staff. Follow-up with computer programmer chief on a regular basis. AUTOMATION DEVELOPER documented in this encounter Plan of Treatment Not on filedocumented as of this encounter Visit Diagnoses Diagnosis Bilateral impacted cerumen - Primary Impacted cerumen documented in this encounter Care Teams Auto Club Travel Counselor Relationship Specialty Start Date End Date Laila Loco APRN, LEG MAN PCP - General 12/09/17 01/10/20 100 [place] [address] documented as of this encounter
--- OUTSIDE RECORDS SUMMARY | 2021-12-17 09:43 | XMS_ITS | Encounter Summary ---
:1940 Author Organization [facility] Address [address] [place] [address] Care Team Providers Name Role Phone Laila Loco APRN, GRE TUTOR Primary Care Provider [phone] Reason for Visit Reason Comments Medicare Annual Wellness Visit Subsequent Encounter Details Date Type Department Care Team Description 04/22/2019 Office Visit [place] Medicare annual wellness [address] visit, subsequent [place], [place] [address] Social History Tobacco Use [...] Sign Reading Time Taken Comments Blood Pressure 134/68 04/22/2019 8:29 AM GERIATRIC NURSE ASSISTANT Pulse 86 04/22/2019 8:29 AM GERIATRIC NURSE ASSISTANT Temperature 35.8 ??C (96.4 ??F) 04/22/2019 8:29 AM GERIATRIC NURSE ASSISTANT Respiratory Rate 16 04/22/2019 8:29 AM GERIATRIC NURSE ASSISTANT Oxygen Saturation 94% 04/22/2019 8:29 AM GERIATRIC NURSE ASSISTANT Inhaled Oxygen Concentration - - Weight 65 kg (143 lb 4.8 oz) 04/22/2019 8:29 AM GERIATRIC NURSE ASSISTANT Height 168 cm (5' 6.14) 04/22/2019 8:29 AM GERIATRIC NURSE ASSISTANT Body Mass Index 23.03 04/22/2019 8:29 AM GERIATRIC NURSE ASSISTANT documented in this encounter Progress Notes Guillermina Bradford LPN - 04/22/2019 8:40 AM CST Annual Wellness Visit CARE TEAM / RESOURCES: Patient Care Team: Laila Loco APRN, GRE TUTOR as PCP - General Eye Care: Dr. Miradna [place] Dental Care: NONE Jose Luis (quit) Pharmacy: [facility] - [address] [address] Other: Visit Vitals BP 134/68 (BP Location: Left arm, Patient Position: Sitting) Pulse 86 Temp (!) 35.8 ??C (96.4 ??F) (Temporal) Resp 16 Ht 1.68 m (5' 6.14) Wt 65 kg (143 lb 4.8 oz) SpO2 94% BMI 23.03 kg/m?? Smoking Status Never Smoker BSA 1.74 m?? Allergies Allergen Reactions ??? Oxycodone Confusion Outpatient Encounter Medications as of 04/22/2019 Medication Sig Dispense Refill ??? aspirin 81 MG tablet Take 1 tablet by mouth 1 (one) time each day ??? atorvastatin (LIPITOR) 80 MG tablet Take 1 tablet (80 mg total) by mouth 1 (one) time each day 90 tablet 3 ??? calcium-vitamin D3-vitamin K (VIACTIV) 500-500-40 MG-UNT-MCG chewable tablet chewable tablet Chew 2 (two) times a day ??? clopidogrel (PLAVIX) 75 MG tablet Take 1 tablet (75 mg total) by mouth 1 (one) time each day 90 tablet 3 ??? ezetimibe (ZETIA) 10 MG tablet Take 1 tablet (10 mg total) by mouth 1 (one) time each day 90 tablet 3 ??? nitroglycerin (NITROSTAT) 0.[address] 1 tablet (0.4 mg total) under the tongue every 5 (five) minutes if needed for chest pain 30 tablet 1 ??? pantoprazole (PROTONIX) 40 MG EC tablet Take 1 tablet (40 mg total) by mouth 1 (one) time each day before breakfast 90 tablet 3 ??? metoprolol succinate XL (TOPROL-XL) 25 MG 24 hr tablet Take 1 tablet (25 mg total) by mouth 1 (one) time each day Do not crush or chew. 90 tablet 3 No facility-administered encounter medications on file as of 04/22/2019. Immunization History Administered Date(s) Administered ??? Flu Vaccine High Dose 65yrs and Older IM 07/05/2013, 03/24/2015 ??? Influenza (IM) Preservative Free 03/03/2007 ??? Influenza, Unspecified 03/24/2015 ??? Pneumococcal Conjugate 13-Valent 01/09/2018 ??? Pneumococcal Polysaccharide 06/10/2006 ??? Td 08/29/2003 ??? Tdap 01/08/2012 Patient Active Problem List Diagnosis ??? Age-related osteoporosis without current pathological fracture ??? Atherosclerotic heart disease of [place] coronary artery without angina pectoris ??? Disturbance of skin sensation ??? Polymyalgia rheumatica (HCC) ??? Peripheral vascular disease (HCC) ??? Unspecified cataract ??? Cervicalgia ??? Hyperlipoproteinemia ??? Cerumen impaction Past Medical History: Diagnosis Date ??? Cancer (HCC) ??? Depression ??? GERD (gastroesophageal reflux disease) ??? Hyperlipidemia ??? Osteoporosis ??? TIA (transient ischemic attack) ??? Varicella ??? Visual impairment ??? Vocal cord paralysis Past Surgical History: Procedure Laterality Date ??? CAROTID ENDARTERECTOMY ??? JOINT REPLACEMENT ??? VASECTOMY Social History Socioeconomic History ??? Marital status: Spouse name: None ??? Number of children: None ??? Years of education: None ??? Highest education level: None Occupational History ??? None Social Needs ??? Financial resource strain: None ??? Food insecurity: Worry: None Inability: None ??? Transportation needs: Medical: None Non-medical: None Tobacco Use ??? Smoking status: Never Smoker ??? Smokeless tobacco: Never Used Substance and Sexual Activity ??? Alcohol use: No Frequency: Never ??? Drug use: No ??? Sexual activity: None Lifestyle ??? Physical activity: Days per week: None Minutes per session: None ??? Stress: None Relationships ??? Social connections: Talks on phone: None Gets together: None Attends sikh service: None Active member of club or organization: None Attends meetings of clubs or organizations: None Relationship status: None ??? Intimate partner violence: Fear of current or ex partner: None Emotionally abused: None Physically abused: None Forced sexual activity: None Other Topics Concern ??? None Social History Narrative ??? None Pain Assessment Scored: 2 and location: Utilization / Navigation of Health Care Systems: Does not overuse the [facility], Acute Care, eVisits or Emergency Room. PHQ-9 mental health screening performed. Scored: CHANTE-7 anxiety screening performed. Scored: Mini-Cog test performed. Scored: / CAGE-AID test performed. BMI/weight management reviewed. BMI: Body mass index is 23.03 kg/m??. Declined referral to nutrition education for BMI greater than 30. Fall Risk Assessment performed. Scored: Tug time: Declines referral for Physical Therapy for fall risk. Colon Cancer Screening: Last done: Dr. Osborne 07/10/2016 Due: EVERY 5 YEARS Breast Cancer Screening: Last done: Osteoporosis Screening: Last done: 11/21/2017 Prostate Cancer Screening: WANTS NOW Last done: Lab Results Component Value Date PSA 1.1 06/05/2018 Hepatitis C Screening: No results found for: HEPCAB Glaucoma Screening: Preformed at outside facility AAA Screening: Not indicated Lung Cancer Screening: Not indicated Findings: Patient is not due for any immunizations but could discuss Shingrix. He is up to date on his colonoscopy. The following referral(s) were created: None. What [...] transfusion before 1991. ?? Those born between 0455-9334. Glaucoma: Medicare Part B (Medical Insurance) covers [...] of one pack a dayfor 30 years). ATRIC NURSE ASSISTANT documented in this encounter Plan of Treatment Not on filedocumented as of this encounter Visit Diagnoses Diagnosis Medicare annual wellness visit, subseque nt documented in this encounter Care Teams Carbon Accountant Relationship Specialty Start Date End Date Laila Loco APRN, GRE TUTOR PCP - General 12/09/17 01/10/20 [address] [facility] [place] [address] documented as of this encounter
--- OUTSIDE RECORDS SUMMARY | 2021-12-17 09:43 | XMS_ITS | Encounter Summary ---
:1940 Author Organization [facility] Address [address] [place] [address] Care Team Providers Name Role Phone Laila Loco REGISTERED NURSE FETAL, GLORY HOLE TENDER Primary Care Provider Reason for Visit Reason Onset Date Comments phone call 08/17/2018 Encounter Details Date Type Department Care Team Description 08/17/2018 Telephone Transfer Laila Loco, phone call [address] REGISTERED NURSE FETAL, GLORY HOLE TENDER [place], [place] [address] [address] [facility] [address] [phone] [place], [place] [address] Social History Tobacco Use [...] Telephone Encounter - Guillermina Bradford LPN - 09/15/2018 3:07 PM CDT Let Cyndi know the below information. Telephone Encounter - Arti Amaya - 09/15/2018 1:16 PM CDT Cyndi with [facility] called requesting to talk with a nurse. Telephone Encounter - Guillermina Bradford LPN - 09/02/2018 10:25 AM CDT There is not a release signed and I made sure that the understood this. Explained to her that Obey would have to come in and sign this but the stated that this would anger the patient to no end with his current state. Telephone Encounter - Laila Loco APRN, IRA - 09/02/2018 10:00 AM CDT Does his have authorization to his medical information? Chirs Telephone Encounter - Guillermina Bradford LPN - 09/02/2018 9:41 AM CDT She is questioning what is going on as far as the appointment Obey had with Rajan. Telephone Encounter - Elsy Chip - 09/02/2018 9:19 AM CDT Astrid would like to speak with Rajan regarding Obey. She stated that he's not telling her anythingabout anything. Telephone Encounter - Elsy Saunders - 08/17/2018 8:53 AM CDT Astrid is wanting to talk to Rajan prior to his appt today. She said it's not a big deal if Rajan doesn't have time prior to the appt, not a big deal. The patient had a heart attack over the weekend and is home now, but she had a couple things she wanted to talk to Rajan about. documented in this encounter Plan of Treatment Not on filedocumented as of this encounter Visit Diagnoses Not on filedocumented in this encounter Care Teams Thermocouple Tester Relationship Specialty Start Date End Date Laila Loco APRN, GLORY HOLE TENDER PCP - General 12/09/17 01/10/[address] [place] [address] [place] [address] documented as of this encounter
--- OUTSIDE RECORDS SUMMARY | 2021-12-17 09:43 | XMS_ITS | Encounter Summary ---
:1940 Author Organization [facility] Address [address] [place] [address] Care Team Providers Name Role Phone Laila Loco DANCING MASTER, AXLE INSPECTOR Primary Care Provider [phone] Reason for Visit Reason Onset Date Comments Visit 08/21/2018 Encounter Details Date Type Department Care Team Description 08/21/2018 Telephone [place] Laila Loco, Visit [address] DANCING MASTER, AXLE INSPECTOR [place], [place] [address] [address] [facility] [address] [address] [phone] [place], [place] [address] Social History Tobacco Use [...] Notes Telephone Encounter - Laila Loco APRN, CNP - 08/21/2018 9:41 AM CDT The patient will talk with her children regarding his memory issues. Telephone Encounter - Nisha Morrison RN - 08/21/2018 9:09 AM CDT Called patients , she would like to talk with Rajan regarding the patients recent visit. She stated to have her call this morning or Friday morning as they are busy in the afternoons. Telephone Encounter - Aliza Renee - 08/21/2018 8:19 AM CDT Patients would like to speak to a nurse regarding recent visit. Please call this AM as they will be unavailable this afternoon. You can reach Astrid at [phone]. documented in this encounter Plan of Treatment Not on filedocumented as of this encounter Visit Diagnoses Not on filedocumented in this encounter Care Teams Industrial Service Technician Relationship Specialty Start Date End Date Laila Loco APRN, IRA PCP - General 12/09/17 01/10/[address] [place] [address] [place] VER[place] [address] documented as of this encounter
--- OUTSIDE RECORDS SUMMARY | 2021-12-17 09:43 | XMS_ITS | Encounter Summary ---
:1940 Author Organization [facility] Address [address] [place] [address] Care Team Providers Name Role Phone Laila Loco APRN, CNP Primary Care Provider [phone] Reason for Referral Consultation (Routine) - Closed Specialty Diagnoses / Procedures Referred By Contact Refer red To Contact Neurology Diagnoses Memory deficit Laila Loco, [facility] - Referrals [place] [facility] [address] [facility] [address] [place] [address] [place] [address] Fax: Referral ID Status Reason Start Date Expiration Date Visits Requ ested Visits Authorized [id number] Closed 08/28/2018 08/29/2019 1 1 Reason for Visit Reason Comments Follow-up Encounter Details Date Type Department Care Team Description 08/28/2018 Office Visit aLila Wilson Follow up (Primary Dx); [address] M, [place] WARD Memory deficit [place], [place] [address] [facility] [address] [place] [address] Social History Tobacco Use Types Packs/Day Years [...] Sign Reading Time Taken Comments Blood Pressure 118/70 08/28/2018 10:33 AM CDT Pulse 56 08/28/2018 10:33 AM CDT Temperature 36.2 ??C (97.2 ??F) 08/28/2018 10:33 AM CDT Respiratory Rate 16 08/28/2018 10:33 AM CDT Oxygen Saturation 97% 08/28/2018 10:33 AM CDT Inhaled Oxygen Concentration - - Weight 66.4 kg (146 lb 6.2 oz) 08/28/2018 10:33 AM CDT Height 167.6 cm (5' 5.98) 08/28/2018 10:33 AM CDT Body Mass Index 23.64 08/28/2018 10:33 AM CDT documented in this encounter Patient Instructions Patient InstructionsChsulema Loco APRN, CNP - 08/28/2018 10:20 AM CDT Let me know when you have an appointment documented in this encounter Progress Notes Laila Loco APRN, CNP - 08/28/2018 10:20 AM CDT Estab Patient Visit Subjective Patient ID: Obey Vines is a 78 y.o. male presenting for the following concerns. Chief Complaint Patient presents with ??? Follow-up HPI: The patient is a pleasant 78-year-old male presenting ambulatory to the clinical setting today in follow-up for a blood pressure and pulse recheck after increasing his metoprolol from 12.5 mg daily to 25 mg daily, one week ago. The patient was admitted to [facility] on 08/15/2018, after he had an acute coronary non-ST elevation myocardial infraction, and was discharged on 08/16/2018, after having a stent placed in the proximal LAD. The procedure went well and the patient was started on Plavix 75 mg daily for the next year and will continue aspirin 81 mg daily for life. The recommendation was to start lisinopril or other LOUISE, and increase his metoprolol, if his pulse and blood pressure would tolerate. The p atient denies any chest pain, discomfort, lightheadedness, dizziness, syncope, presyncope, and/or peripheral edema. The patient's family members have contacted me on several occasions in the past several weeks, concerned about the patient's memory, personality changes, which initially were noticed at the end of July, when he was on vacation with his . The patient???s reports in a conversation before this clinical visit, she has concerns as he speech seems slower, he is having a difficult time expressing himself, he is having trouble answering his phone, remembering names, does not seem to be smiling as often, and is no longer inquisitive, but rather passive. The patient???s reports these changes have been recognized by other family members, friends and anyone who knows her . The patient was questioned about his memory, and acknowledges he is having a difficult time remembering, trying to tell a story, and agrees his speech, thought process, and word find is slower. The patient is able toremember his medications but has a hard time expressing the names of them now. The patient acknowledges he is more irritable when he is trying to tell somebody something, particularly when he cannot find the words. The patient denies any weakness, trouble swallowing, and/or ambulating. The patient does feel fatigued, expressing he does not have any get up and go. The patient???s appetite is diminished. The patient has been a significant amount of pain, with his left shoulder, after being diagnosed with a complete rotator cuff tear in August, which is affecting his sleep and possibly affecting his memory. The patient did receive a cortisone injection in his left shoulder yesterday, by Dr. [facility] in [place], and he feels there has been some improvement in his pain already, and understands it will take several days before he is able to feel the full benefits. He denies any depression or anxiety. The patient did have a stroke 12 years ago, followed by a carotid endarterectomy. The patient did have a CT of his head on August 15, 2018, with the following impression: No acute intracranial findings. ROS: CARDIOVASCULAR: See HPI. The patient had a myocardial infraction on August, had a stent placed on August 16, and is doing well from that perspective. The patient's metoprolol extended release wasincreased from 12.5 mg to 25 mg daily a week ago and he is here for blood pressure and pulse recheck. No chest pain, pressure, palpitations, peripheral edema, lightheadedness, dizziness, presyncope, syncope, and/or cardiac murmurs. NEUROLOGICAL: See HPI. The patient's family has expressed concerns regarding the patient's memory, personality change, which was first noticed at the end of July, when he was on a trip with his . These changes have been noticed by other family members and friends, finding this change very apparent. The following portions of the patient's chart were reviewed in this encounter and updated as appropriate: Tobacco Allergies Meds Problems Med Hx Surg Hx Fam Hx Soc Hx Objective Visit Vitals BP 118/70 (BP Location: Left arm, Patient Position: Sitting) Pulse 56 Temp 36.2 ??C (97.2 ??F) (Temporal) Resp 16 Ht 1.676 m (5' 5.98) Wt 66.4 kg (146 lb 6.2 oz) SpO2 97% BMI 23.64 kg/m?? Smoking Status Never Smoker BSA 1.76 m?? GENERAL: The patient is alert, orientated, and in no apparent distress. HEENT: Head normocephalic. Eyes - pupils round and reactive to light. EOMs intact without nystagmus. CARDIOVASCULAR: Bradycardic rhythm. Pulse on exam 58. No murmur. No peripheral edema. RESPIRATORY: Lungs are clear, bilaterally. MUSCULOSKELETAL: The patient moves freely about the room. NEUROLOGICAL: Cranial nerves II through XII grossly intact. The patient does have a difficult time verbally expressing his thoughts and feelings, which became more apparent the longer he was conversing, which was noted by nursing as well. The patient's speech is slower. The patient's Mini-Mental stateexamination score was 25 out of 30 today, having the most difficult time recalling. DIAGNOSTICS: None. Assessment/Plan Obey was seen today for follow-up. Diagnoses and all orders for this visit: Follow up (Primary) Memory deficit - Ambulatory External Referral Discussed the plan of care with the patient. The patient will continue metoprolol 25 mg extended release, continue to monitor his blood pressure and pulse which was 58 on exam, with consideration of adding lisinopril 2.5 mg if his blood pressure tolerates it. The patient agrees to proceed with a neurol ogical evaluation for his memory deficit at [facility] in [place]. The patient agrees and understands this plan of care. Laila Loco APRN, CNP documented in this encounter Plan of Treatment Scheduled Referrals Name Type Priority Associated Order Schedule Diagnoses Ambulatory External Outpatient Referral Routine Memory deficit Ordered: Referral 08/28/2018 documented as of this encounter Visit Diagnoses Diagnosis Follow up - Primary Memory deficit Memory loss documented in this encounter Care Teams Manager Mountain Relationship Specialty Start Date End Date Laila Loco APRN, CNP PCP - General 12/09/17 01/10/20 [address] [place] [address] documented as of this encounter
--- OUTSIDE RECORDS SUMMARY | 2021-12-17 09:43 | XMS_ITS | Encounter Summary ---
:1940 Author Organization Address [address] [place] [address] Care Team Providers Name Role Phone Laila Loco APRN, IRA Primary Care Provider [phone] Reason for Visit Reason Comments Ear Fullness right ear Encounter Details Date Type Department Care Team Description 10/13/2018 Office Visit Margarito Love Laila Loco Patient left without [address] M, IRA WARD being seen (Primary [place] [address] [place]) [address] [place] [address] Social History Tobacco Use Types Packs/Day Years [...] Reading Time Taken Comments Blood Pressure 128/72 10/13/2018 2:22 PM CDT Pulse 78 10/13/2018 2:22 PM CDT Temperature 36.6 ??C (97.8 ??F) 10/13/2018 2:22 PM CDT Respiratory Rate 17 10/13/2018 2:22 PM CDT Oxygen Saturation 94% 10/13/2018 2:22 PM CDT Inhaled Oxygen Concentration - - Weight 67.2 kg (148 lb 2.4 oz) 10/13/2018 2:22 PM CDT Height 168 cm (5' 6.14) 10/13/2018 2:22 PM CDT Body Mass Index 23.81 10/13/2018 2:22 PM CDT documented in this encounter Progress Notes Laila Loco APRN, CNP - 10/13/2018 2:40 PM CDT The patient left without being seen. The patient was contacted after he left and had to leave to pick up driver his grandchildren, and will return for an ear wash later this week. documented in this encounter Plan of Treatment Not on filedocumented as of this encounter Visit Diagnoses Diagnosis Patient left without being seen - Primar y Surgical or other procedure not carried out because of patient's decision documented in this encounter Care Teams Tapper Balance Wheel Screw Hole Relationship Specialty Start Date End Date Laila Loco APRN, CHAR HOUSE SUPERVISOR PCP - General 12/09/17 01/10/20 [address] [place] [address] documented as of this encounter
--- OUTSIDE RECORDS SUMMARY | 2021-12-17 09:43 | XMS_ITS | Encounter Summary ---
:1940 Author Organization [facility] Address [address] [place] [address] Care Team Providers Name Role Phone Laila Loco CERAMIC RESTORER, EXHAUST MACHINE OPERATOR Primary Care Provider [phone] Reason for Visit Reason Onset Date Comments Information needed for referral 08/28/2018 Encounter Details Date Type Department Care Team Description 08/28/2018 Telephone [place] Laila Loco, Information needed for [address] CERAMIC RESTORER, [place] referral [place] [address] [address] [facility] [address] [phone] [place], [place] [address] Social History Tobacco Use [...] Telephone Encounter - Guillermina Bradford LPN - 08/31/2018 8:27 AM CDT Read her the report from visit 08/28/2018 Telephone Encounter - Arti Amaya - 08/28/2018 3:54 PM CDT Sophia with [facility] called requesting to speak with a nurse regarding the memory loss referral. She tried to speak with the Pt on the phone to verify information but between his hearing and memory loss she could not get any information. She tried utilizing Care Everywhere, but could only find info on the shoulder pain. Please call [phone] and ask for Sophia, if she is not available she will leave notes for whomever answers on what is needed. documented in this encounter Plan of Treatment Not on filedocumented as of this encounter Visit Diagnoses Not on filedocumented in this encounter Care Teams Business Objects Architect Relationship Specialty Start Date End Date Laila Loco, CERAMIC RESTORER, EXHAUST MACHINE OPERATOR PCP - General 12/09/17 01/10/[address] [place] [address] documented as of this encounter
--- OUTSIDE RECORDS SUMMARY | 2021-12-17 09:43 | XMS_ITS | Encounter Summary ---
:1940 Author Organization [facility] Address [address] [place] [address] Care Team Providers Name Role Phone Laila Loco PROPAGATOR, BRICKLAYER APPRENTICE Primary Care Provider [phone] Encounter Details Date Type Department Care Team Description 09/15/2018 Orders Only Margarito Love Laila Loco, [address] PROPAGATOR, BRICKLAYER APPRENTICE YARIEL [place] [address] [phone] [place], [place] [address] Social History Tobacco Use [...] filedocumented in this encounter Care Teams Director Counseling Bureau Relationship Specialty Start Date End Date Laila Loco APRN, BRICKLAYER APPRENTICE PCP - General 12/09/17 01/10/20 [address] [facility] [address] documented as of this encounter
--- OUTSIDE RECORDS SUMMARY | 2021-12-17 09:43 | XMS_ITS | Encounter Summary ---
:[address] [facility] Address [address] [place] [address] Care Team Providers Name Role Phone Laila Loco APRN, IRA Primary Care Provider [phone] Encounter Details Date Type Department Care Team Description 04/22/2019 Lab [place] Prediabetes; [address] Screening PSA (prostate spec ific antigen); [place], [place] [address] Hyperlipidemia, unspecified hyperlipidemia type; [phone] Coronary artery 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 pectoris, unspecified vessel or lesion type, unspecified whether [place] or transplanted heart; Medication jose toring encounter; Other fatigue; Screening, anem ia, deficiency, iron Social History [...] Priority Date/Time Associated Diagnosis Comme nts GLOMERULAR FILTRATION Routine 04/22/2019 9:37 Hyperlipidemia, Results for this RATE AM FLOORPERSON unspecified procedure are i n hyperlipidemia t ype the results Coronary artery section. 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 pectoris, unspecified vessel or lesion type, unspecified whether [place] or transplanted heart Medication monitoring encounter CBC BRANCH OFFICE Routine 04/22/2019 9:37 Other fatigue Results for this W/DIFF AM FLOORPERSON Screening, anemia, procedure are in deficiency, iron the results section. PSA Routine 04/22/2019 9:37 Screening PSA Results for this AM FLOORPERSON (prostate specific procedure are in antigen) the results section. HEMOGLOBIN A1C Routine 04/22/2019 9:37 Prediabetes Results fo r this AM FLOORPERSON procedure are i n the results section. LIPID PANEL Routine 04/22/2019 9:37 Hyperlipidemia, Results f or this AM FLOORPERSON unspecified procedure are i n hyperlipidemia type the resu lts section. COMPREHENSIVE Routine 04/22/2019 9:37 Hyperlipidemia, Results for this METABOLIC PANEL AM FLOORPERSON unspecified procedure ar e in hyperlipidemia t ype the results Coronary artery section. 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 pectoris, unspecified vessel or lesion type, unspecified whether [place] or transplanted heart Medication monitoring encounter documented in this encounter Results (ABNORMAL) Glomerular filtration rate (GFR) (04/22/2019 9:37 AM FLOORPERSON) P athologist Signature GFR 53 (A) 04/22/2019 [facility] 1:05 PM FLOORPERSON CENTER [facility] >60 04/22/2019 [facility] [place] GFR 1:05 PM FLOORPERSON [facility] Comment: GFR calculated from serum creatinine v alue Chronic Kidney Disease less than 60 mL/m in/1.73 m2 Kidney Failure less than 15 mL/min/1.73 m2 Note: effective 09/17/06 IDMS-Traceable MDRD Study Equation used. Specimen Anatomical Collection Method Collection Time Receive d Time (Source) Location / / Volume Laterality 04/22/2019 9:37 AM 9 9:37 FLOORPERSON AM FLOORPERSON Laila Loco CONVEYOR MECHANIC, DIALYSIS NURSE LAB BLOOD ORDERABLES Performing Organization Address City/State/ZIP Code Phon e Number [facility] [address] [place] [id number] CBC Branch Off w/Diff (04/22/2019 9:37 AM FLOORPERSON) P athologist Signature WBC 8.6 3.5 - 10.5 04/22/2019 [facility] K/uL 9:48 AM FLOORPERSON [place] RBC 4.94 4.30 - 04/22/2019 [facility] 5.70 M/uL 9:48 AM FLOORPERSON [place] Hemoglobin 15.1 13.5 - 04/22/2019 [facility] 17.5 g/dL 9:48 AM FLOORPERSON [place] Hematocrit 45.4 38.0 - 04/22/2019 [facility] 50.0 % 9:48 AM FLOORPERSON [place] Platelets 279 150 - 450 04/22/2019 [facility] K/uL 9:48 AM FLOORPERSON [place] MCV 91.9 81.2 - 04/22/2019 [facility] 95.1 fL 9:48 AM FLOORPERSON [place] MCH 30.6 26.0 - 04/22/2019 [facility] 32.0 pg 9:48 AM FLOORPERSON [place] MCHC 33.3 32.0 - 04/22/2019 [facility] 36.0 g/dL 9:48 AM FLOORPERSON [place] RDW 13.6 11.8 - 04/22/2019 [facility] 15.6 % 9:48 AM FLOORPERSON [place] Lymphocytes % 18.8 18.0 - 04/22/2019 [facility] 45.0 % 9:48 AM FLOORPERSON [place] Mid-size Cells 8.1 3.3 - 10.1 04/22/2019 [facility] % 9:48 AM FLOORPERSON [place] Granulocytes/U[place] 73.1 45.8 - 04/22/2019 [facility] trophils 73.7 % 9:48 AM FLOORPERSON [place] Lymphocytes 1.6 0.9 - 2.9 04/22/2019 [facility] Absolute K/uL 9:48 AM FLOORPERSON [place] MIDS Absolute 0.7 0.2 - 0.8 04/22/2019 [facility] K/uL 9:48 AM FLOORPERSON [place] Granulocytes/[place] 6.3 2.1 - 8.7 04/22/2019 [facility] trophils K/uL 9:48 AM [facility] Absolute Specimen Anatomical Collection Method Collection Time Receive d Time (Source) Location / / Volume Laterality Blood 04/22/2019 9:37 AM 9 9:37 FLOORPERSON AM FLOORPERSON Laila Loco APRN, DIALYSIS NURSE LAB BLOOD ORDERABLES Performing Organization Address City/State/ZIP Code Phon e Number [facility] [place] [address] [place] [address] (ABNORMAL) Comprehensive metabolic panel (04/22/2019 9:37 AM FLOORPERSON) [facility] Method Time Signature Total Protein 8.3 (H) 6.3 - 8.2 04/22/2019 [place] g/dL 1:05 PM [facility] Albumin, Serum 4.3 3.5 - 5.0 04/22/2019 [place] g/dL 1:05 PM [facility] Total Bilirubin 1.4 (H) 0.1 - 1.0 04/22/2019 [place] mg/dL 1:05 PM [facility] AST 22 8 - 48 04/22/2019 [place] U/L 1:05 PM [facility] Alkaline 135 (H) 38 - 128 04/22/2019 [place] Phosphatase U/L 1:05 PM [facility] ALT (SGPT) 20 0 - 49 04/22/2019 [place] U/L 1:05 PM [facility] Sodium 144 135 - 145 04/22/2019 [place] mEq/L 1:05 PM [facility] Potassium 5.0 3.5 - 5.1 04/22/2019 [place] mEq/L 1:05 PM [facility] Chloride 103 98 - 107 04/22/2019 [place] mEq/L 1:05 PM [facility] CO2 30 22 - 31 04/22/2019 [place] mmol/L 1:05 PM [facility] BUN 13 5 - 25 04/22/2019 [place] mg/dL 1:05 PM [facility] Creatinine 1.3 0.6 - 1.4 04/22/2019 [place] mg/dL 1:05 PM [facility] Glucose 127 (H) 70 - 100 04/22/2019 [place] mg/dL 1:05 PM [facility] Calcium, Total,S 10.3 (H) 8.4 - 04/22/2019 [place] 10.2 1:05 PM [facility] mg/dL LABORATORY Specimen Anatomical Collection Method Collection Time Receive d Time (Source) Location / / Volume Laterality Blood 04/22/2019 9:37 AM 9 FLOORPERSON 12:30 PM FLOORPERSON Laila Loco CONVEYOR MECHANIC, DIALYSIS NURSE LAB BLOOD ORDERABLES Performing Organization Address City/State/ZIP Code Phon e Number [facility] [address] [place] [address] (ABNORMAL) Lipid panel (04/22/2019 9:37 AM FLOORPERSON) athologist Signature Cholesterol 175 0 - 199 04/22/2019 [facility] mg/dL 1:05 PM [facility] Comment: Recommended by National Cholesterol Education Program (ATP III) -------- Cholesterol Ranges -------- <200 ? Desirable 200-239 ? Borderline high >=240 ? High Triglycerides 121 0 - 149 mg/dL 04/22/2019 1:05 PM [facility] Comment: -------- TRIG Ranges -------- <150 ?Normal 150-199 ? Borderline high 200-499 ? High >=500 ? Very high HDL 44 40 - 60 mg/dL 04/22/2019 1:05 PM [facility] Comment: -------- HDL Ranges -------- <40 ?Low 40-59 ?Normal >=60 ? Optimal LDL Calculated 107 (A) 0 - 99 mg/dL 04/22/2019 1:05 PM [facility] Comment: -------- LDL Ranges -------- <100 ? Optimal 100-129 ?Near optimal/above op timal 130-159 ?Borderline high 160-189 ?High >=190 ?Very high Fasting? Yes 04/22/2019 9:45 AM [facility] Specimen Anatomical Collection Method Collection Time Receive d Time (Source) Location / / Volume Laterality Blood 04/22/2019 9:37 AM 9 FLOORPERSON 12:30 PM FLOORPERSON Laila Loco APRN, CNP LAB BLOOD ORDERABLES Performing Organization Address [facility]/ZIP Code Phon e Number [facility] [address] [place] [address] PSA (04/22/2019 9:37 AM FLOORPERSON) athologist Signature Total PSA 1.3 0.0 - 7.0 04/23/2019 [facility] ng/mL 2:09 PM [facility] Comment: The results from this [...] Volume Laterality Blood 04/22/2019 9:37 AM 9 FLOORPERSON 12:39 PM FLOORPERSON Laila Loco APRN, CNP LAB BLOOD ORDERABLES Performing Organization Address City/[facility]/ZIP Code Phon e Number [facility] [address] [place] [address] (ABNORMAL) Hemoglobin A1c (04/22/2019 9:37 AM FLOORPERSON) Analysis Performed At Patho logist Time Signature Hemoglobin A1C 5.9 (H) 4.0 - 5.6 04/22/2019 [place] % A1C 1:05 PM FLOORPERSON [facility] Comment: Reference Range 4.0-5.6% is [...] Volume Laterality Blood 04/22/2019 9:37 AM 9 FLOORPERSON 12:30 PM FLOORPERSON Laila Loco APRN, DIALYSIS NURSE LAB BLOOD ORDERABLES Performing Organization Address City/State/ZIP Code Phon e Number [facility] [address] [place] [address] documented in this encounter Visit Diagnoses Diagnosis Prediabetes Other abnormal glucose Screening PSA (prostate specific antigen ) Special screening for malignant neoplasm of prostate Hyperlipidemia, unspecified hyperlipidem ia type 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, unspecified vessel or lesion type, unspecified whether [place] or transplant ed heart Medication monitoring encounter Encounter for therapeutic drug monitorin g Other fatigue Screening, anemia, deficiency, iron Screening for iron deficiency anemia documented in this encounter Care Teams Forest Fire Management Officer Relationship Specialty Start Date End Date Laila Loco APRN, DIALYSIS NURSE PCP - General 12/09/17 01/10/[address] [place] [id number] documented as of this encounter
--- OUTSIDE RECORDS SUMMARY | 2021-12-17 09:43 | XMS_ITS | Encounter Summary ---
:1940 Author Organization [facility] Address [address] [place] [address] Care Team Providers Name Role Phone Laila Loco VIDEO PRODUCTION SPECIALIST, CALL OR CONTACT CENTRE OPERATOR Primary Care Provider [phone] Reason for Visit Reason Comments Med Refill Encounter Details Date Type Department Care Team Description 11/23/2018 Refill [place] Laila Loco, Gastroesophageal reflux [address] VIDEO PRODUCTION SPECIALIST, CALL OR CONTACT CENTRE OPERATOR disease without [place], [place] [address] esophagitis [address] [place] [address] Social History Tobacco Use Types Packs/Day Years [...] this encounter Miscellaneous Notes Telephone Encounter - Isabel Cardoso MA - 11/25/2018 2:29 PM CDT Patient is no longer taking, he is taking Protonix. documented in this encounter Plan of Treatment Not on filedocumented as of this encounter Visit Diagnoses Diagnosis Gastroesophageal reflux disease without esophagitis Esophageal reflux documented in this encounter Care Teams Deputy Harbormaster Relationship Specialty Start Date End Date Laila Loco, VIDEO PRODUCTION SPECIALIST, CALL OR CONTACT CENTRE OPERATOR PCP - General 12/09/17 01/10/20 [address] [place] [address] documented as of this encounter
--- OUTSIDE RECORDS SUMMARY | 2021-12-17 09:43 | XMS_ITS | Encounter Summary ---
:1940 Author Organization [facility] Address [address] [place] [address] Care Team Providers Name Role Phone Laila Loco MILL LABORER, INSECTICIDE EXPERT Primary Care Provider [phone] Reason for Visit Reason Onset Date Comments medication 08/13/2018 Encounter Details Date Type Department Care Team Description 08/13/2018 Telephone [place] Laila Loco, medication [address] MILL LABORER, INSECTICIDE EXPERT [place], [place] [address] [address] [facility] [address] [phone] [place], [place] [address] Social History Tobacco Use [...] Encounter - Laila Loco APRN, IRA - 08/13/2018 11:40 AM CDT Spoke with the patient's who felt that he has been having some neurological changes, she is having a difficult time figuring this out really cannot explain it, he seems confused at times, does notseem to be smiling as much, and she really noticed this after they went to a trip in [place] at the end of July. The patient did fall in [place] but she denies hitting his head. She acquired inquires about a stroke or Alzheimer's. The patient had a clarification on the tramadol the patient isonly supposed to take this as needed for his MRI and only had a prescription of 10 pills. We will wait for the MRI results and have the patient come in to review them. Telephone Encounter - Elsy Chip - 08/13/2018 10:26 AM CDT Astrid would like Rajan to call her within the next 20 min as Obey is gone and she'd like to have a conversation with her while he is not around. documented in this encounter Plan of Treatment Not on filedocumented as of this encounter Visit Diagnoses Not on filedocumented in this encounter Care Teams Food Service Manager Relationship Specialty Start Date End Date Laila Loco APRN, INSECTICIDE EXPERT PCP - General 12/09/17 01/10/[address] [place] [address] [place] [id number] documented as of this encounter
--- OUTSIDE RECORDS SUMMARY | 2021-12-17 09:43 | XMS_ITS | Encounter Summary ---
:1940 Author Organization [facility] Address [address] [place] [address] Care Team Providers Name Role Phone Laila Loco STAPLE LASTER, CROWN ASSEMBLY MACHINE SET UP MECHANIC Primary Care Provider [phone] Encounter Details Date Type Department Care Team Description 10/14/2018 Telephone [place] Laila Loco, [address] STAPLE LASTER, CROWN ASSEMBLY MACHINE SET UP MECHANIC [place] [address] [phone] [place], [place] [address] Social History Tobacco Use [...] this encounter Miscellaneous Notes Telephone Encounter - Arti Amaya - 10/14/2018 8:48 AM CDT I established him as left without being seen on the schedule for 10/13/18 per [facility] protocol. Telephone Encounter - Laila Loco APRN, IRA - 10/14/2018 5:47 AM CDT Please remove my schedule from October 13, 2018. Thanks Rajan documented in this encounter Plan of Treatment Not on filedocumented as of this encounter Visit Diagnoses Not on filedocumented in this encounter Care Teams Fortune Cookie Maker Relationship Specialty Start Date End Date Laila Loco APRN, CROWN ASSEMBLY MACHINE SET UP MECHANIC PCP - General 12/09/17 01/10/[address] [place] [address] [place] [id number] documented as of this encounter
--- OUTSIDE RECORDS SUMMARY | 2021-12-17 09:43 | XMS_ITS | Encounter Summary ---
:1940 Author Organization [facility] Address [address] [place] [address] Care Team Providers Name Role Phone Laila Loco APRN, CNP Primary Care Provider [phone] Reason for Referral Consultation (Routine) - Closed Specialty Diagnoses / Procedures Referred By Contact Refer red To Contact Orthopedic Surgery Diagnoses Complete rotator cuff tear of left shoulder Laila Loco, Doyle Bernal [facility] [place] [address] [facility] [address] [place] [address] Fax: Referral ID Status Reason Start Date Expiration Date Visits Requ ested Visits Authorized [id number] Closed 08/19/2018 08/20/2019 1 1 Scheduling Instructions The patient was started on Plavix for a non-STEMI OK and cannot proceed with any surgical interventions as he is on Plavi x times 1 year inquiring about the possibility of a steroid injection. Reason for Visit Reason Comments Follow-up Encounter Details Date Type Department Care Team Description 08/17/2018 Office Visit Laila Wilson Follow up (Primary Dx); [address] [place], [place] Atherosclerosis of red devil coronary arter y without angina pectoris, unspecified whether red devil or transplanted heart; YARI[place] Cruz [address] Right carotid bruit; [address] [place], [place] Complete rotator cuff tear o f left shoulder; [phone] [id number] Memory deficit Social History Tobacco Use Types Packs/Day Years [...] Sign Reading Time Taken Comments Blood Pressure 134/72 08/17/2018 11:05 AM CDT Pulse 72 08/17/2018 11:05 AM CDT Temperature 36.3 ??C (97.4 ??F) 08/17/2018 11:05 AM CDT Respiratory Rate 16 08/17/2018 11:05 AM CDT Oxygen Saturation 95% 08/17/2018 11:05 AM CDT Inhaled Oxygen Concentration - - Weight 66.5 kg (146 lb 9.7 oz) 08/17/2018 11:05 AM CDT Height 167.6 cm (5' 5.98) 08/17/2018 11:05 AM CDT Body Mass Index 23.67 08/17/2018 11:05 AM CDT documented in this encounter Patient Instructions Patient InstructionsLaila Loco APRN, PSYCHOLOGY FELLOW - 08/17/2018 11:00 AM CDT Calcium 600 mg twice daily Tylenol for pain Carotid Ultrasound at [place], they will contact you to schedule Metoprolol succinate 25 mg daily Follow up in one month, consideration of adding Lisinopril documented in this encounter Progress Notes Laila Loco APRN, CNP - 08/17/2018 11:00 AM CDT Estab Patient Visit Subjective Patient ID: Obey Vines is a 78 y.o. male presenting for the following concerns. Chief Complaint Patient presents with ??? Follow-up HPI: The patient is a pleasant 78-year-old male presenting ambulatory to the clinical setting today accompanied by his . The patient is here today in follow-up to review his MRI results of his cervical neck and left shoulder, as he has been having chronic pain in his neck since he injured in 2008, and left shoulder pain for the past 8-9 months, without an injury. The patient reports he is having a difficult time moving the steering wheel, opening doors, and sleeping because of his left shoulder discomfort, which is affecting his quality of life. The patient reports he left shoulder has been quite painful, and feels similar to how his right shoulder felt, before it was replaced. The patient has a history of a cervical neck fracture in 2008, after slipping on ice in a yazidi parking lot. The patientreports he wore a neck brace for a period of 3-4 months following this incident. No recent neck injury. The patient reports his neck pain is likely worsening, and notices his neck pain when he is driving, as he has to frequently reposition himself. The patient would like to be referred to Dr. Dodson at [facility] in [place], for orthopedic consultation if recommended, as he has a relationship withDr. Dodson. The patient's reports last , and Friday, 3 and 4 days ago, the patient became ill with nausea, fatigue, and generalized weakness, had taken a nitro on for chest pain, which resolved, and presented to the emergency room on Wednesday, August 15, 2018, with an elevated troponin. The patient was transferred from [facility] to [facility], with an acute coronary non-ST elevation myocardial infraction. The patient was admitted to [place] on 08/15/2018, and discharged on 08/16/2018, after having a stent placed in the proximal LAD. The procedure went well and the patient will be on Plavix 75 mg daily for the next year and continue his aspirin 81 mg daily for life. The patientdenies any chest pain, discomfort, lightheadedness, syncope, presyncope, and/or peripheral edema. The patient has been referred to physical therapy for cardiac rehab which he is not pursuing. If his blood pressure and heart rate will tolerate, he should be started on lisinopril or other LOUISE, and uptitrate metoprolol. The patient's reports he has had memory issues, over the past few weeks, which she first noticed when they were on a trip, in the later part of July. The patient???s is uncertain what truly has changed in her , but there has been a change, which she feels is not related to his coronary artery disease, nor the recent cardiac stent placement. The patient is unable to concur with his ???s assessment, and he does seem to have a good recall of certain things. The patient acknowledges before his recent OK, he forgot to take his baby aspirin for about 3 to 4 days. No change in the patient physical activities, with the exception of the pain he continues to experience in the left shoulder and neck, which limits left upper extremity movement. The patient did have a left carotid endarterectomy, an ischemic stroke, and his is inquiring about have a carotid ultrasound to assess hiscarotid arteries. The patient did have a head CT on August 15, 2018, with the following impression:No acute intracranial findings. ROS: CARDIOVASCULAR: See HPI. The patient had a non-ST elevation myocardial infraction on 08/15/2018, had a coronary cardiac catheterization on the August 15, with a stent placed in the proximal LAD which he tolerated well. The patient denies chest pain, pressure, palpitations, peripheral edema, lightheaded ness, dizziness, presyncope, syncope, and/or cardiac murmurs. MUSCULOSKELETAL: See HPI. The patient has a long-standing history of cervical neck discomfort after he fractured his neck in 2008, which is most notable when driving. The patient has had left shoulder discomfort for the past 8-9 months, without an injury, which seems to be worsening. The patient reports he is having a difficult time moving the steering wheel, opening doors, and sleeping because of his left shoulder discomfort, which is affecting his quality of life. NEUROLOGICAL: The patient has been having memory issues, with concerns brought forth by his . Nomigraine headache and/or seizures. The patient denies any pain, numbness and/or tingling in his right upper extremity. The following portions of the patient's chart were reviewed in this encounter and updated as appropriate: Tobacco Allergies Meds Problems Med Hx Surg Hx Fam Hx Soc Hx Objective Visit Vitals BP 134/72 (BP Location: Left arm, Patient Position: Sitting) Pulse 72 Temp 36.3 ??C (97.4 ??F) (Temporal) Resp 16 Ht 1.676 m (5' 5.98) Wt 66.5 kg (146 lb 9.7 oz) SpO2 95% BMI 23.67 kg/m?? Smoking Status Never Smoker BSA 1.76 m?? GENERAL: The patient is alert, orientated, and in no apparent distress. CARDIOVASCULAR: Normal heart rate and rhythm. No murmur. No peripheral edema. Positive peripheral pulses, x4. Carotid bruit on the right. No bruit on the left, where there is a well healed vertical incision. RESPIRATORY: Lungs are clear, bilaterally. No wheezing. PSYCHIATRIC: The patient was teary-eyed when discussing his memory concerns. DIAGNOSTICS: Reviewed the patient's MRI results from [facility] on 08/13/2018: Cervical neck MRI: 1. Moderate degenerative cervical spondylosis. 2.?Foraminal stenoses compress the exiting right C5 and right C6 nerve roots. 3.?Chronic cervical and upper thoracic vertebral compression fractures. Left shoulder MRI. 1. Motion artifact degrades image quality. 2. Full-thickness complete tear of the supraspinatus tendon with tendon retraction and muscular atrophy. 3. Partial thickness tearing of the infraspinatus and subscapularis. 4. Moderate arthropathy of the acromioclavicular joint with subacromial spurring. 5. Additional, non-emergent findings discussed in the findings section of the report. Assessment/Plan Obey was seen today for follow-up. Diagnoses and all orders for this visit: Follow up (Primary) Atherosclerosis of red devil coronary artery without angina pectoris, unspecified whether red devil or transplanted heart - metoprolol succinate XL (TOPROL-XL) 25 MG 24 hr tablet; Take 1 tablet (25 mg total) by mouth 1 (one) time each day Do not crush or chew. Right carotid bruit - Ultrasound doppler carotid; Future - Ultrasound doppler carotid Complete rotator cuff tear of left shoulder - Ambulatory External Referral Memory deficit Other orders - Cancel: Ambulatory External Referral Discussed the plan of care with the patient and his . Will increase the patient's Metoprolol XL to 25 mg daily, which was renewed x one year. May consider adding a low does of Lisinopril, if his blood pressure tolerates the increased dose of Metoprolol, and will continue to monitor his blood pressure and pulse. The patient will be on Plavix x one year, which complicates his complete rotator cuff tear of the left shoulder, but he will be referred to orthopedics at [place] in [place] for further evaluation. Will proceed with a bilateral carotid ultrasound, call with the results, and likely recommend referral to neurology to evaluated the memory concerns. The patient can take Tylenol for pain, avoiding the NSAID's. The patient will take calcium with Vitamin D twice daily. The patient and his both agree and understand this plan of care. Laila Loco APRN, PSYCHOLOGY FELLOW documented in this encounter Plan of Treatment Scheduled Orders Name Type Priority Associated Diagnoses Order S chedule Ultrasound doppler Imaging Routine Right carotid bruit 1 Occurrences starting carotid 08/17/2018 unti l 02/16/2019 Scheduled Referrals Name Type Priority Associated Order Schedule Diagnoses Ambulatory External Outpatient Referral Routine Complete rotat or Ordered: Referral cuff tear of left 08/19/2018 shoulder documented as of this encounter Visit Diagnoses Diagnosis Follow up - Primary Atherosclerosis of red devil coronary arter y without angina pectoris, unspecified whether red devil or transplanted heart Right carotid bruit Complete rotator cuff tear of left shoul moody Memory deficit Memory loss documented in this encounter Care Teams Toby Maker Relationship Specialty Start Date End Date Laila Loco APRN, PSYCHOLOGY FELLOW PCP - General 12/09/17 01/10/20 [address] [place] [id number] documented as of this encounter
--- OUTSIDE RECORDS SUMMARY | 2021-12-17 09:44 | XMS_ITS | Encounter Summary ---
:1940 Author Organization [facility] Address [address] [place] [address] Care Team Providers Name Role Phone Laila Loco APRN, MORTGAGE MANAGER Primary Care Provider [phone] Encounter Details Date Type Department Care Team Description 06/05/2018 Lab [place] Screening for diabetes melli tus; [address] Screening for prostate cance r; [place], [place] [address] Screening, anemia, deficienc y, iron; [phone] Hyperlipidemia, unspecified hyperlipidemia type Social History Tobacco [...] Date/Time Associated Diagnosis Comme nts GLOMERULAR Routine 06/05/2018 8:53 AM Screening for diabetes Results for this FILTRATION RATE TRAVELING NURSE mellitus procedure ar e in the results section. CBC BRANCH OFFICE Routine 06/05/2018 8:53 AM Screening, anemia , Results for this W/DIFF TRAVELING NURSE deficiency, iron procedure a re in the results section. PSA Routine 06/05/2018 8:53 AM Screening for prostate Results for this TRAVELING NURSE cancer procedure are i n the results section. HEMOGLOBIN A1C Routine 06/05/2018 8:53 AM Screening for diabet es Results for this TRAVELING NURSE mellitus procedure are i n the results section. LIPID PANEL Routine 06/05/2018 8:53 AM Hyperlipidemia, Result s for this TRAVELING NURSE unspecified procedure are i n hyperlipidemia type the resu lts section. BASIC METABOLIC Routine 06/05/2018 8:53 AM Screening for diabe rachael Results for this PANEL TRAVELING NURSE mellitus procedure are i n the results section. documented in this encounter Results (ABNORMAL) Glomerular filtration rate (GFR) (06/05/2018 8:53 AM TRAVELING NURSE) athologist Signature GFR 59 (A) 06/05/2018 [facility] 9:07 AM [facility] >60 06/05/2018 [facility] Maced[place] GFR 9:07 AM [facility] Comment: GFR calculated from serum creatinine v alue Chronic Kidney Disease less than 60 mL/m in/1.73 m2 Kidney Failure less than 15 mL/min/1.73 m2 Note: effective 09/17/06 IDMS-Traceable MDRD Study Equation used. Specimen Anatomical Collection Method Collection Time Receive d Time (Source) Location / / Volume Laterality 06/05/2018 8:53 AM 9 8:53 TRAVELING NURSE AM TRAVELING NURSE Laila Loco APRN, [place] LAB BLOOD ORDERABLES Performing Organization Address City/State/ZIP Code Phon e Number [facility] [address] [place] [address] (ABNORMAL) Lipid panel (06/05/2018 8:53 AM TRAVELING NURSE) athologist Signature Cholesterol 171 0 - 199 06/05/2018 [facility] mg/dL 1:35 PM [facility] Comment: Recommended by National Cholesterol Education Program (ATP III) -------- Cholesterol Ranges -------- <200 ? Desirable 200-239 ? Borderline high >=240 ? High Triglycerides 142 0 - 149 mg/dL 06/05/2018 1:35 PM [facility] Comment: -------- TRIG Ranges -------- <150 ?Normal 150-199 ? Borderline high 200-499 ? High >=500 ? Very high HDL 37 (A) 40 - 60 mg/dL 06/05/2018 1:35 PM [facility] Comment: -------- HDL Ranges -------- <40 ?Low 40-59 ?Normal >=60 ? Optimal LDL Calculated 106 (A) 0 - 99 mg/dL 06/05/2018 1:35 PM [facility] Comment: -------- LDL Ranges -------- <100 ? Optimal 100-129 ?Near optimal/above op timal 130-159 ?Borderline high 160-189 ?High >=190 ?Very high Specimen Anatomical Collection Method Collection Time Receive d Time (Source) Location / / Volume Laterality Blood (Blood, 06/05/2018 8:53 AM 06/05/19 19 Venous) TRAVELING NURSE 12:43 PM TRAVELING NURSE Laila Loco APRN, MORTGAGE MANAGER LAB BLOOD ORDERABLES Performing Organization Address City/State/ZIP Code Phon e Number [facility] [address] [place] [address] (ABNORMAL) Basic metabolic panel (06/05/2018 8:53 AM TRAVELING NURSE) P athologist Signature Sodium 143 135 - 145 06/05/2018 [facility] mmol/L 9:07 AM [facility]ELING N[facility] [place] Potassium 3.2 (L) 3.5 - 5.1 06/05/2018 [facility] mmol/L 9:07 AM [facility] Comment: . Chloride 101 98 - 107 mmol/L 06/05/2018 9:07 AM TRAVELING NURSE [facility] [place] Comment: . CO2 32 (H) 22 - 31 mmol/L 06/05/2018 9:07 AM TRAVELING NURSE [facility] [place] Comment: . Creatinine 1.2 0.6 - 1.4 mg/dL 06/05/2018 9:07 AM TRAVELING NURSE [place] Comment: . BUN 14 5 - 25 mg/dL 06/05/2018 9:07 AM TRAVELING NURSE [facility] Comment: . Glucose 107 (H) 70 - 100 mg/dL 06/05/2018 9:07 AM TRAVELING NURSE [facility] [place] Calcium, Total,S 9.8 8.4 - 10.2 mg/dL 06/05/2018 9:07 AM TRAVELING NURSE [facility] [place] Comment: . Fasting? Yes 06/05/2018 9:00 AM TRAVELING NURSE [facility] [place] Specimen Anatomical Collection Method Collection Time Receive d Time (Source) Location / / Volume Laterality Blood (Blood, 06/05/2018 8:53 AM 06/05/19 19 9:00 Venous) TRAVELING NURSE AM TRAVELING NURSE Laila Loco APRN, MORTGAGE MANAGER LAB BLOOD ORDERABLES Performing Organization Address City/State/ZIP Code Phon e Number [facility] [place] [address] [place] [address] (ABNORMAL) CBC Branch Off w/Diff (06/05/2018 8:53 AM TRAVELING NURSE) Patholo gist Method Time Signature WBC 8.7 3.5 - 10.5 06/05/2018 [facility] K/uL 9:01 AM [facility]ELING [facility] [place] RBC 4.74 4.30 - 06/05/2018 [facility] 5.70 M/uL 9:01 AM TRAVELING NURSE [place] Hemoglobin 14.5 13.5 - 06/05/2018 [facility] 17.5 g/dL 9:01 AM TRAVELING NURSE [place] Hematocrit 43.0 38.0 - 06/05/2018 [facility] 50.0 % 9:01 AM [facility]ELING NURSE [place] Platelets 265 150 - 450 06/05/2018 [facility] [place] K/uL 9:01 AM [facility]ING [place] MCV 90.7 81.2 - 06/05/2018 [facility] [place] 95.1 fL 9:01 AM [facility]VELING NUR[place] MCH 30.6 26.0 - 06/05/2018 [facility] [place] 32.0 pg 9:01 AM TRAVELING NUR[place] MCHC 33.7 32.0 - 06/05/2018 [facility] 36.0 g/dL 9:01 AM TRAVELING NURSE [place] RDW 13.8 11.8 - 06/05/2018 [facility] [place] 15.6 % 9:01 AM TRAVELING NURSE [place] Lymphocytes % 15.8 (L) 18.0 - 06/05/2018 [facility] [place] 45.0 % 9:01 AM TRAVELING NURSE [place] Mid-size Cells 8.1 3.3 - 10.1 06/05/2018 [facility] [place] % 9:01 AM TRAVELING NURSE [place] Granulocytes/Urszula 76.1 (H) 45.8 - 06/05/2018 [facility] [place] trophils 73.7 % 9:01 AM TRAVELING NURSE [place] Lymphocytes 1.4 0.9 - 2.9 06/05/2018 [facility] [place] Absolute K/uL 9:01 AM TRAVELING NURSE [place] MIDS Absolute 0.7 0.2 - 0.8 06/05/2018 [facility] [place] K/uL 9:01 AM TRAVELING NURSE [place] Granulocytes/Urszula 6.6 2.1 - 8.7 06/05/2018 [facility] [place] trophils K/uL 9:01 AM TRAVELING NURSE [place] Absolute Specimen Anatomical Collection Method Collection Time Receive d Time (Source) Location / / Volume Laterality Blood (Blood, 06/05/2018 8:53 AM 06/05/19 19 9:00 Venous) TRAVELING NURSE AM TRAVELING NURSE Laila Loco APRN, MORTGAGE MANAGER LAB BLOOD ORDERABLES Performing Organization Address City/State/ZIP Code Phon e Number [facility] [place] [address] [place] [address] PSA (06/05/2018 8:53 AM TRAVELING NURSE) P athologist Signature Total PSA 1.1 0.0 - 7.0 06/05/2018 [facility] ng/mL 2:05 PM [facility]ELING [facility] Comment: The results from this [...] Location / / Volume Laterality Blood (Blood, 06/05/2018 8:53 AM 06/05/19 Venous) TRAVELING NURSE 12:45 PM TRAVELING NURSE Laila Loco APRN, CNP LAB BLOOD ORDERABLES Performing Organization Address [facility] e Number [facility] [address] [place] [address] (ABNORMAL) Hemoglobin A1c (06/05/2018 8:53 AM TRAVELING NURSE) Analysis Performed At [facility] Time Signature Hemoglobin A1C 5.8 (H) 4.0 - 5.6 06/05/2018 [place] % A1C 2:32 PM [facility] Comment: Reference Range 4.0-5.6% is [...] Location / / Volume Laterality Blood (Blood, 06/05/2018 8:53 AM 06/05/19 Venous) TRAVELING NURSE 12:43 PM TRAVELING NURSE Laila Loco APRN, CNP LAB BLOOD ORDERABLES Performing Organization Address [facility] Phon e Number [facility] [address] [place] [address] documented in this encounter Visit Diagnoses Diagnosis Screening for diabetes mellitus Screening for prostate cancer Special screening for malignant neoplasm of prostate Screening, anemia, deficiency, iron Screening for iron deficiency anemia Hyperlipidemia, unspecified hyperlipidem ia type documented in this encounter Care Teams Dietary Aide Relationship Specialty Start Date End Date Laila Loco, SALES CORRESPONDENT, MORTGAGE MANAGER PCP - General 12/09/17 01/10/20 100 [facility] [place] [id number] documented as of this encounter
--- OUTSIDE RECORDS SUMMARY | 2021-12-17 09:44 | XMS_ITS | Encounter Summary ---
:1940 Author Organization [facility] Address [address] [place] [address] Care Team Providers Name Role Phone Laila Loco CREDIT PRODUCT ANALYST, ROLLING ATTENDANT Primary Care Provider [phone] Encounter Details Date Type Department Care Team Description 06/05/2018 Orders Only [place] Laila Loco, Hypokalemia (Primary [address] CREDIT PRODUCT ANALYST, ROLLING ATTENDANT Dx) [place], [place] 100 [facility] [address] [place] [address] Social History Tobacco Use Types Packs/Day Years [...] as of this encounter Visit Diagnoses Diagnosis Hypokalemia - Primary Hypopotassemia documented in this encounter Care Teams Underwriting Service Representative Relationship Specialty Start Date End Date Laila Loco, CREDIT PRODUCT ANALYST, ROLLING ATTENDANT PCP - General 12/09/17 01/10/20 100 [facility] [place] [id number] documented as of this encounter
--- OUTSIDE RECORDS SUMMARY | 2021-12-17 09:44 | XMS_ITS | Encounter Summary ---
:1940 Author Organization [facility] Address [address] [place] [address] Care Team Providers Name Role Phone Laila Loco APRN, IRA Primary Care Provider [phone] Reason for Referral Imaging (Routine) - Closed Specialty Diagnoses / Procedures Referred By Contact Refer red To Contact Radiology Diagnoses Cervical pain (neck) Laila Loco APRN, Procedures MRI Cervical Spine wo IV Contrast GAS OR WATER METER INSTALLER [address] [place] [address] Referral ID Status Reason Start Date Expiration Date Visits Requ ested Visits Authorized [id number] Closed 07/30/2018 01/26/2019 1 1 Imaging (Routine) - Closed Specialty Diagnoses / Procedures Referred By Contact Refer red To Contact Radiology Diagnoses Chronic left shoulder pain Laila Loco APRN, Procedures MRI Shoulder Left wo IV Contrast GAS OR WATER METER INSTALLER [address] [place] [address] Referral ID Status Reason Start Date Expiration Date Visits Requ ested Visits Authorized [id number] Closed 07/30/2018 01/26/2019 1 1 Reason for Visit Reason Comments Shoulder Pain Left Encounter Details Date Type Department Care Team Description 07/30/2018 Office Visit Laila Wilson Cervical pain (neck) (Primar y Dx); [address] M, COMPUTING SYSTEMS MECHANIC, GAS OR WATER METER INSTALLER Chronic left shoulder pain Margarito Love YARIEL [address] [facility] [address] [place] [address] Social History Tobacco Use Types Packs/Day Years [...] Sign Reading Time Taken Comments Blood Pressure 130/74 07/30/2018 9:30 AM CDT Pulse 60 07/30/2018 9:30 AM CDT Temperature 36.3 ??C (97.3 ??F) 07/30/2018 9:30 AM CDT Respiratory Rate 16 07/30/2018 9:30 AM CDT Oxygen Saturation 100% 07/30/2018 9:30 AM CDT Inhaled Oxygen Concentration - - Weight 67.8 kg (149 lb 7.6 oz) 07/30/2018 9:30 AM CDT Height 167.6 cm (5' 5.98) 07/30/2018 9:30 AM CDT Body Mass Index 24.14 07/30/2018 9:30 AM CDT documented in this encounter Patient Instructions Patient InstructionsChsulema Loco APRN, GAS OR WATER METER INSTALLER - 07/30/2018 9:20 AM CDT Will call with the official radiology report of the cervical neck and left shoulder xrays documented in this encounter Progress Notes Laila Loco APRN, CNP - 07/30/2018 9:20 AM CDT Estab Patient Visit Subjective Patient ID: Obey Vines is a 78 y.o. male presenting for the following concerns. Chief Complaint Patient presents with ??? Shoulder Pain Left HPI: The patient is a pleasant 78-year-old bjubl-rqem-zgofevno male presenting [facility] with left shoulder discomfort which started approximately 6 months ago, with worseningpain, and decreased range of motion. No apparent injury. The patient reports he has left shoulder discomfort with activity, but more specifically when opening the door and turning the steering wheel when driving. He reports there is a sense of left upper extremity weakness, as he cannot lift, which stops him from various activities. The patient denies any numbness or tingling in his left upper extremity. The patient reports his left shoulder pain will wake him and keep him awake. The patient had a right reversible shoulder replacement in 2014 and was quite pleased with the outcome. The patient reports his left shoulder pain mimics the pain he experienced in his right shoulder before the surgery. No history of avascular necrosis. 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 The patient has a history of a cervical neck fracture in 2008, after slipping on ice in a latter-day parking lot. The patient reports he wore a neck brace for a period of 3-4 months following this incident. No recent neck injury. The patient reports his neck pain is likely worsening, and notices his neck pain when he is driving, and he frequently has to reposition himself. The patient is requesting imaging of both his left shoulder and neck with consideration of an x-ray and/or MRI. ROS: MUSCULOSKELETAL: See HPI. The patient has a long-standing history of cervical neck discomfort after he fractured his neck in 2008, which is most notable when driving the car. The patient has had left shoulder discomfort for the past 6 months, which seems to be worsening. No apparent injury. The patient is having a difficult time move his steering wheel, opening doors, and sleeping because of his leftshoulder discomfort, which is affecting his quality of life. The following portions of the patient's chart were reviewed in this encounter and updated as appropriate: Tobacco Allergies Meds Problems Med Hx Surg Hx Fam Hx Soc Hx Objective Visit Vitals BP 130/74 (BP Location: Left arm, Patient Position: Sitting) Pulse 60 Temp 36.3 ??C (97.3 ??F) (Temporal) Resp 16 Ht 1.676 m (5' 5.98) Wt 67.8 kg (149 lb 7.6 oz) SpO2 100% BMI 24.14 kg/m?? Smoking Status Never Smoker BSA 1.78 m?? GENERAL: The patient is alert, orientated, and in no apparent distress. EARS: Examining the right ear, small amount of cerumen present in the right ear canal, normal TM. Left ear normal canal, normal pearly cervantes TM. MUSCULOSKELETAL: Examining the cervical neck area; no erythema, bruising, swelling, erythema, and/ordeformity noted. The patient has limitations with hyperextension and deviation of his head from sideto side; he is able to flex his head down to his chin without limitations. Examining the left shoulder; no erythema, bruising, swelling, and/or deformity. No pain when palpating over the anterior and posterior joint line. The patient has full range of motion, but it almost appears as if he has to re-position his arm, in such a way, as if it is catching, trying to reposition it in the socket, in orderto attain certain positions, particularly abduction. Positive Riojas's test. X-ray refractory technician stated he had a difficult time repositioning his left shoulder for the images. DIAGNOSTICS: Cervical neck x-ray, unchanged from his previous x-ray in November 2017. Left shoulder x-ray, unchanged from his previous x-ray in November 2017, official radiology report is pending. Assessment/Plan Obey was seen today for shoulder pain. Diagnoses and all orders for this visit: Cervical pain (neck) (Primary) - X-ray Shoulder 2+ Views Left; Future - X-ray Cervical Spine 2-3 Views; Future - X-ray Shoulder 2+ Views Left - X-ray Cervical Spine 2-3 Views Chronic left shoulder pain - X-ray Shoulder 2+ Views Left; Future - X-ray Cervical Spine 2-3 Views; Future - X-ray Shoulder 2+ Views Left - X-ray Cervical Spine 2-3 Views Discussed the plan of care with the patient. The patient feels his left shoulder symptoms are similar to his right shoulder symptoms before his right reverse total shoulder replacement in 2014 and is inquiring about proceeding with an MRI of both his cervical neck and left shoulder to evaluate his symptoms further. Order placed for an MRI of his left shoulder and neck through [facility] in [place]. The patient will be notified of the impressions. The patient signed a release of information to obtain a copy of his left shoulder and neck x-ray to be burned to a CD to take with him if he is referred to orthopedics, and requests to be referred to Dr. Dodson at [facility] in [place] who he has a relationship with. The patient agrees and understands this plan of care. Laila Loco APRN, IRA documented in this encounter Plan of Treatment Scheduled Orders Name Type Priority Associated Diagnoses Order S chedule MRI Shoulder Left wo Imaging Routine Chronic left shoulde r Expected: 07/30/2018, IV Contrast pain Expires: 2019 MRI Cervical Spine wo Imaging Routine Cervical pain (neck ) Expected: 07/30/2018, IV Contrast Expires: 2019 documented as of this encounter Procedures Procedure Name Priority Date/Time Associated Diagnosis Comme nts XR SHOULDER 2+ Today 07/30/2018 10:38 AM Cervical jake n (neck) Results for this VIEWS LEFT CDT Chronic left procedure are i n shoulder pain the results section. XR CERVICAL SPINE Today 07/30/2018 10:32 AM Cervical p ain (neck) Results for this 2-3 VIEWS CDT Chronic left procedure are i n shoulder pain the results section. documented in this encounter Results X-ray Shoulder 2+ Views Left (07/30/2018 10:38 AM CDT) Anatomical Region Laterality Modality Upper Extremities, Shoulder Left Radiographic Imaging Specimen (Source) Anatomical Collection Method Collection Time Re ceived Time Location / / Volume Laterality 07/30/2018 10:38 AM CDT Impressions 07/30/2018 11:31 AM CDT IMPRESSION: Minimal osteoarthritis. Narrative 07/30/2018 11:31 AM CDT INDICATION: left shoulder pain x 6 months COMPARISON: None available FINDINGS: SHOULDER COMPLETE LEFT (MIN 2 VIEWS) Bone mineralization is normal. ??No acut e fracture or dislocation. ??No definite lytic or blastic lesion. The ac romioclavicular joint space is within normal limits. ??The glenohumeral joint space demonstrates only minimal degenerative change. There is an old, healed left 5th rib fra cture. Procedure Note Diana Mcclure MD - 07/30/2018Formattin g of this note might be different from the original. INDICATION: left shoulder pain x 6 months COMPARISON: None available FINDINGS: SHOULDER COMPLETE LEFT (MIN 2 VIEWS) Bone mineralization is normal. No acute fracture or dislocation. No definite lytic or blastic lesion. The ac romioclavicular joint space is within normal limits. The glenohumeral j oint space demonstrates only minimal degenerative change. There is an old, healed left 5th rib fra cture. IMPRESSION: Minimal osteoarthritis. Laila Loco COMPUTING SYSTEMS MECHANIC, GAS OR WATER METER INSTALLER IMG XR PROCEDURES X-ray Cervical Spine 2-3 Views (07/30/2018 10:32 AM CDT) Anatomical Region Laterality Modality Spine, C-spine Radiographic Imaging Specimen (Source) Anatomical Collection Method Collection Time Re ceived Time Location / / Volume Laterality 07/30/2018 10:32 AM CDT Impressions 07/30/2018 10:34 AM CDT IMPRESSION: 1. ??Stable study demonstrating osteopen ia and no significant degenerative change. 2. ??There are carotid artery calcificat ions, a marker for carotid artery disease Narrative 07/30/2018 10:34 AM CDT INDICATION: Neck pain, fracture in 2008 COMPARISON: 11/17/2017 FINDINGS: CERVICAL SPINE 3 VIEWS OR LESS There are carotid bifurcation calcificat ions, a marker for carotid artery disease. ??Surgical metallic clips ident ified. Generalized decreased bone density. ??Ve rtebral body heights and intervertebral disc spaces are preserved . ??There is minor endplate spurring C2 through C6, not significantl y changed. ??No anterolisthesis or retrolisthesis. ??No fracture. Procedure Note Diana Mcclure MD - 07/30/2018Formattin g of this note might be different from the original. INDICATION: Neck pain, fracture in 2008 COMPARISON: 11/17/2017 FINDINGS: CERVICAL SPINE 3 VIEWS OR LESS There are carotid bifurcation calcificat ions, a marker for carotid artery disease. Surgical metallic clips identif ied. Generalized decreased bone density. Vert ebral body heights and intervertebral disc spaces are preserved . There is minor endplate spurring C2 through C6, not significantl y changed. No anterolisthesis or retrolisthesis. No fracture. IMPRESSION: 1. Stable study demonstrating osteopenia and no significant degenerative change. 2. There are carotid artery calcificatio ns, a marker for carotid artery disease Laila Loco APRN, GAS OR WATER METER INSTALLER IMG XR PROCEDURES documented in this encounter Visit Diagnoses Diagnosis Cervical pain (neck) - Primary Cervicalgia Chronic left shoulder pain Pain in joint, shoulder region documented in this encounter Care Teams Business Support Manager Relationship Specialty Start Date End Date Laila Loco APRN, GAS OR WATER METER INSTALLER PCP - General 12/09/17 01/10/20 [address] [place] [address] documented as of this encounter
--- OUTSIDE RECORDS SUMMARY | 2021-12-17 09:44 | XMS_ITS | Encounter Summary ---
:1940 Author Organization [facility] Address [address] [place] [address] Care Team Providers Name Role Phone Laila Loco CARD ROOM MANAGER, CENTRIFUGAL CHILLER TECHNICIAN Primary Care Provider [phone] Encounter Details Date Type Department Care Team Description 08/11/2018 Orders Only [place] Laila Loco, Cervical pain (neck) [address] ED, [place] (Primary Dx) [place], [place] [address] [facility] [address] [place] [address] Social History Tobacco Use Types Packs/Day Years [...] as of this encounter Visit Diagnoses Diagnosis Cervical pain (neck) - Primary Cervicalgia documented in this encounter Care Teams Viscose Cellar Charge Hand Relationship Specialty Start Date End Date Laila Loco, CARD ROOM MANAGER, CENTRIFUGAL CHILLER TECHNICIAN PCP - General 12/09/17 01/10/20 [address] [place] [address] documented as of this encounter
--- OUTSIDE RECORDS SUMMARY | 2021-12-17 09:44 | XMS_ITS | Encounter Summary ---
:1940 Author Organization [facility] Address [address] [place] [address] Care Team Providers Name Role Phone Laila Loco TENTERING MACHINE FEEDER, PETROLEUM REFINERY WORKER Primary Care Provider [phone] Reason for Visit Reason Onset Date Comments referral 07/31/2018 MRI shoulder, C spin e Encounter Details Date Type Department Care Team Description 07/31/2018 Telephone [place] Laila Loco, referral (MRI [address] TENTERING MACHINE FEEDER, PETROLEUM REFINERY WORKER shoulder, C spine) [place], [place] [address] [address] [facility] [address] [phone] [place], [place] [address] Social History Tobacco Use [...] Notes Telephone Encounter - Aliza Renee - 07/31/2018 8:41 AM CDT Referral faxed. Telephone Encounter - Nisha Morrison RN - 07/31/2018 8:16 AM CDT Please fax MRI orders for Shoulder and C spine to [facility]. documented in this encounter Plan of Treatment Not on filedocumented as of this encounter Visit Diagnoses Not on filedocumented in this encounter Care Teams Electrician Crane Maintenance Relationship Specialty Start Date End Date Laila Loco APRN, PETROLEUM REFINERY WORKER PCP - General 12/09/17 01/10/20 [address] [facility] [place] [address] documented as of this encounter
--- OUTSIDE RECORDS SUMMARY | 2021-12-17 09:44 | XMS_ITS | Encounter Summary ---
:1940 Author Organization [facility] Address [address] [place] [address] Care Team Providers Name Role Phone Laila Loco AUTOMOTIVE PORTER, WATCHMAKING TEACHER Primary Care Provider [phone] Reason for Visit Reason Onset Date Comments Med Refill 04/06/2018 Encounter Details Date Type Department Care Team Description 04/06/2018 [place]ill [place], Hyperlipidemia, [address] AUTOMOTIVE PORTER, [place] unspecified [place] [address] [address] hyperlipidemia type [phone] [place], [place] [address] (Primary Dx) Social History Tobacco Use Types Packs/Day Years Used Date Never Assessed Alcohol Habits Answer Date Recorded How often [...] Encounter - Laila Loco APRN, CNP - 04/06/2018 12:38 PM FATS AND OILS LOADER The prescription was written as requested. AND OILS LOADER Telephone Encounter - Guillermina Bradford LPN - 04/06/2018 11:34 AM CST Ezetimibe, pending Pharmacy: [facility] AND OILS LOADER documented in this encounter Plan of Treatment Not on filedocumented as of this encounter Visit Diagnoses Diagnosis Hyperlipidemia, unspecified hyperlipidem ia type - Primary documented in this encounter Care Teams Painter Assistant Relationship Specialty Start Date End Date Laila Loco APRN, CNP PCP - General 12/09/17 01/10/20 [address] [facility] [place] [address] documented as of this encounter
--- OUTSIDE RECORDS SUMMARY | 2021-12-17 09:44 | XMS_ITS | Encounter Summary ---
:1940 Author Organization [facility] Address [address] [place] [address] Care Team Providers Name Role Phone Laila Loco APRN, IRA Primary Care Provider [phone] Reason for Visit Reason Comments Ear Wash Encounter Details Date Type Department Care Team Description 06/05/2018 Office Visit [place] Laila Loco Coronary artery disease with out angina pectoris, unspecified vessel or lesion type, unspecified whether [place] or transplanted heart (Primary Dx); [address] MED CNP Hyperlipidemia, unspecified hyperlipidem ia type; [place], [place] [address] Gastroesophageal reflux disease without esophagitis; [address] [place], [place] Impacted cerumen of left ear ; [phone] [id number] Screening for diabetes mellitus; [phone] Screening, anem ia, deficiency, iron; (Work) Screening for p rostate cancer Social History Tobacco Use Types Packs/Day Years [...] Sign Reading Time Taken Comments Blood Pressure 132/70 06/05/2018 8:02 AM WAREHOUSE ORDER FILLER Pulse 74 06/05/2018 8:02 AM WAREHOUSE ORDER FILLER Temperature 36.8 ??C (98.2 ??F) 06/05/2018 8:02 AM WAREHOUSE ORDER FILLER Respiratory Rate 18 06/05/2018 8:02 AM WAREHOUSE ORDER FILLER Oxygen Saturation 95% 06/05/2018 8:02 AM WAREHOUSE ORDER FILLER Inhaled Oxygen Concentration - - Weight 68.9 kg (151 lb 14.4 oz) 06/05/2018 8:02 AM WAREHOUSE ORDER FILLER Height 167.6 cm (5' 6) 06/05/2018 8:02 AM WAREHOUSE ORDER FILLER Body Mass Index 24.52 06/05/2018 8:02 AM WAREHOUSE ORDER FILLER documented in this encounter Patient Instructions Patient InstructionsChrismanuel Loco APRN, CNP - 06/05/2018 8:00 AM WAREHOUSE ORDER FILLER Prolia for osteoporosis Will call with the lab results Calcium 600 mg with Vitamin D tablets, twice daily Shingrix, check with her insurance HOUSE ORDER FILLER documented in this encounter Progress Notes Laila Loco APRN, CNP - 06/05/2018 8:00 AM CST Estab Patient Visit Subjective Patient ID: Obey Vines is a 78 y.o. male presenting for the following concerns. Chief Complaint Patient presents with ??? Ear Wash HPI: The patient is a pleasant 78-year-old male presenting ambulatory to the clinical setting today for amedication review. The patient has a history of transient ischemic attack, hyperlipidemia, acute myocardial infarction, esophageal reflux, osteoporosis, prediabetes, chronic cervical neck pain, hearingloss, cerumen impactions, skin cancer, and polymyalgia rheumatica. The patient is fasting and would like labs drawn. The patient is currently on a baby aspirin daily, metoprolol tartrate 25 mg daily, nitroglycerin 0.4mg, sublingual as needed for chest pain, atorvastatin 80 mg daily, and Zetia 10 mg daily for his coronary artery disease and hyperlipidemia. The patient reports he is tolerating his medications well. The patient needs his prescription renewed, including the nitroglycerin, as he is uncertain when he had it replaced, and has never taken the medication. The patient denies any chest pain, discomfort, lightheadedness, dizziness, presyncope, syncope, peripheral edema, cardiac murmurs and/or dyspnea with ex ertion. The patient is a non-smoker. The patient had a DEXA scan on 11/21/2017, with impression being osteoporosis. The recommendation wasto start Prolia 60 mg IM every 6 months, after checking with his insurance company, which has not been cleared. The patient reports he purchased a bottle of calcium with vitamin D tablets, but has not started taking them. 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 The patient had part of the ear removed, with complete excision, all margins cleared. The patient has had history of cerumen impactions, wearing bilateral hearing aids, and is requestingto have his ears cleaned today. The patient reports he has had an upper respiratory infection for the past week or so, which is starting to improve at this point. The patient has had nasal congestion, nasal drainage. No fever, no chills. The patient reports his symptoms are a common cold, nothing more. The patient is up-to-date on his Tdap, Prevnar, Pneumovax, Flu shot this season, and could consider the Shingrix. ROS:. INTEGUMENTARY: The patient reports he was diagnosed with basal cell skin cancer, removing part of his right ear last fall, after he presented with a nonhealing sore. EARS: See HPI. The patient does have hearing loss, wears hearing aids bilaterally, and is requestingto have an ear wash today. NOSE: The patient has had nasal congestion, nasal drainage, with an upper respiratory infection he has had for the past week, which is improving at this point. CARDIOVASCULAR: See HPI. The patient has a history of coronary artery disease. No chest pain, pressure, palpitations, peripheral edema, lightheadedness, dizziness, presyncope, syncope, and/or cardiac murmurs. RESPIRATORY: No dyspnea on exertion. ENDOCRINOLOGY: The patient has a history of osteoporosis, diagnosed in November,, not currently on treatment. The patient has a history of prediabetes. MUSCULOSKELETAL: The patient has a history of cervical neck pain. The following portions of the patient's chart were reviewed in this encounter and updated as appropriate: Tobacco Allergies Meds Problems Med Hx Surg Hx Fam Hx Soc Hx Objective Visit Vitals BP 132/70 (BP Location: Left arm, Patient Position: Sitting) Pulse 74 Temp 36.8 ??C (98.2 ??F) (Temporal) Resp 18 Ht 1.676 m (5' 6) Wt 68.9 kg (151 lb 14.4 oz) SpO2 95% BMI 24.52 kg/m?? Smoking Status Never Smoker BSA 1.79 m?? GENERAL: The patient is alert, orientated, and in no apparent distress. HEENT: Head normocephalic. Eyes - pupils round and reactive to light. Ears -left ear, significant amount of cerumen, which was removed by nursing staff and re- evaluated, normal TM. Right ear normal canal, normal pearly cervantes TM. The patient is missing a portion of the top of his right ear, secondary tothe skin cancer removed. Throat - normal oropharynx. Uvula rises midline. No erythema. Neck - Supple. No cervical or posterior lymphadenopathy. CARDIOVASCULAR: Normal heart rate and rhythm. No murmur. No peripheral edema. Positive peripheral pulses, x4. RESPIRATORY: Lungs are clear, bilaterally. No wheezing. DIAGNOSTICS: Basic metabolic panel, hemoglobin A1c, PSA, and CBC with differential, results pending at the time of this dictation. Assessment/Plan Obey was seen today for ear wash. Diagnoses and all orders for this visit: Coronary artery 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 pectoris, unspecified vessel or lesion type, unspecified whether [place] or transplanted heart (Primary) - metoprolol tartrate (LOPRESSOR) 25 MG tablet; Take 1 tablet (25 mg total) by mouth 1 (one) time each day - nitroglycerin (NITROSTAT) 0.4 MG SL tablet; Place 1 tablet (0.4 mg total) under the tongue every 5(five) minutes if needed for chest pain Hyperlipidemia, unspecified hyperlipidemia type - Lipid panel; Future - ezetimibe (ZETIA) 10 MG tablet; Take 1 tablet (10 mg total) by mouth 1 (one) time each day - atorvastatin (LIPITOR) 80 MG tablet; Take 1 tablet (80 mg total) by mouth 1 (one) time each day Gastroesophageal reflux disease without esophagitis - omeprazole (PriLOSEC) [address] capsule; Take 1 capsule (20 mg total) by mouth 1 (one) time each day Impacted cerumen of left ear - Ear cerumen removal Screening for diabetes mellitus - Basic metabolic panel; Future - Hemoglobin A1c; Future Screening, anemia, deficiency, iron - CBC Branch Off w/Diff; Future Screening for prostate cancer - PSA; Future Discussed the plan of care with the patient. Renewed Zetia 10 mg daily, Lipitor 80 mg daily, metoprolol 25 mg daily, Nitrostat as needed, and omeprazole 20 mg daily. The patient will check with his insurance regarding Prolia for osteoporosis, and notify me. The patient take calcium 600 mg with vitaminD 400 international units twice daily. Recommended the Shingrix immunization, all of his other immunizations are up-to-date. The patient again will check with his insurance regarding Shingrix coverage.The patient will be notified of his lab results. The patient agrees and understands this plan of care. Laila Loco APRN, CNP HOUSE ORDER FILLER Rosalee Simmons MA - 06/05/2018 8:00 AM CSTAssociated Order(s): Ear cerumen removal Post-Procedure Diagnose(s): Impacted cerumen of left ear Nurse Procedure Note Ear cerumen removal Date/Time: 06/05/2018 9:29 AM Performed by: Rosalee Simmons MA Authorized by: Laila Loco APRN, CNP Consent: Consent obtained: Verbal Consent given by: Patient Risks discussed: Dizziness, incomplete removal and pain Procedure details: Location: L ear Procedure type: curette Post-procedure details: Inspection: TM intact Patient tolerance of procedure: Tolerated with difficulty Comments: Patient experienced some dizziness. Laid patient down and let him rest. Dizziness passed and continued with irrigation. HOUSE ORDER FILLER documented in this encounter Plan of Treatment Not on filedocumented as of this encounter Procedures Procedure Name Priority Date/Time Associated Diagnosis Comme nts EAR CERUMEN REMOVAL Routine 06/05/2018 8:00 AM Impacted cerume n of Results for this WAREHOUSE ORDER FILLER left ear procedure are i n the results section. documented in this encounter Results (ABNORMAL) Hemoglobin A1c (06/05/2018 8:53 AM WAREHOUSE ORDER FILLER) Analysis Performed At Patho logist Time Signature Hemoglobin A1C 5.8 (H) 4.0 - 5.6 06/05/2018 [place] % A1C 2:32 PM [facility] Comment: Reference Range 4.0-5.6% [...] (Blood, 06/05/2018 8:53 AM 06/05/19 19 Venous) WAREHOUSE ORDER FILLER 12:43 PM WAREHOUSE ORDER FILLER Laila Loco APRN, STATION CHIEF LAB BLOOD ORDERABLES Performing Organization Address City/State/ZIP Code Phon e Number [facility] [address] [place] [address] PSA (06/05/2018 8:53 AM WAREHOUSE ORDER FILLER) athologist Signature Total PSA 1.1 0.0 - 7.0 06/05/2018 [facility] ng/mL 2:05 PM [facility]SE [facility] F[facility] Comment: The results from this [...] (Blood, 06/05/2018 8:53 AM 06/05/19 19 Venous) WAREHOUSE ORDER FILLER 12:45 PM WAREHOUSE ORDER FILLER Laila Loco APRN, STATION CHIEF LAB BLOOD ORDERABLES Performing Organization Address City/State/ZIP Code Phon e Number [facility] [address] [place] [phone] (ABNORMAL) CBC Branch Off w/Diff (06/05/2018 8:53 AM WAREHOUSE ORDER FILLER) [facility] gist Method Time Signature WBC 8.7 3.5 - 10.5 06/05/2018 [facility] K/uL 9:01 AM [facility] ORDER [facility] [place] RBC 4.74 4.30 - 06/05/2018 [facility] 5.70 M/uL 9:01 AM [facility] [place] Hemoglobin 14.5 13.5 - 06/05/2018 [facility] 17.5 g/dL 9:01 AM [facility] [place] Hematocrit 43.0 38.0 - 06/05/2018 [facility] 50.0 % 9:01 AM [facility] [place] Platelets 265 150 - 450 06/05/2018 [facility] K/uL 9:01 AM [facility] [place] MCV 90.7 81.2 - 06/05/2018 [facility] 95.1 fL 9:01 AM [facility] [place] MCH 30.6 26.0 - 06/05/2018 [facility] 32.0 pg 9:01 AM W[facility]HOUSE ORDER [facility] [place] MCHC 33.7 32.0 - 06/05/2018 [facility] 36.0 g/dL 9:01 AM [facility] [place] RDW 13.8 11.8 - 06/05/2018 [facility] 15.6 % 9:01 AM [facility] [place] Lymphocytes % 15.8 (L) 18.0 - 06/05/2018 [facility] 45.0 % 9:01 AM [facility] [place] Mid-size Cells 8.1 3.3 - 10.1 06/05/2018 [facility] % 9:01 AM [facility] [place] Granulocytes/Urszula 76.1 (H) 45.8 - 06/05/2018 [facility] [place] trophils 73.7 % 9:01 AM [facility] [place] Lymphocytes 1.4 0.9 - 2.9 06/05/2018 [facility] [place] Absolute K/uL 9:01 AM [facility] [place] MIDS Absolute 0.7 0.2 - 0.8 06/05/2018 [facility] [place] K/uL 9:01 AM [facility] [place] Granulocytes/Urszula 6.6 2.1 - 8.7 06/05/2018 [facility] [place] trophils K/uL 9:01 AM [facility] [place] Absolute Specimen Anatomical Collection Method Collection Time Receive d Time (Source) Location / / Volume Laterality Blood (Blood, 06/05/2018 8:53 AM 06/05/19 19 9:00 Venous) WAREHOUSE ORDER FILLER AM WAREHOUSE ORDER FILLER Laila Loco APRN, STATION CHIEF LAB BLOOD ORDERABLES Performing Organization Address City/State/ZIP Code Phon e Number [facility] [place] [address] [place] [address] (ABNORMAL) Basic metabolic panel (06/05/2018 8:53 AM WAREHOUSE ORDER FILLER) P athologist Signature Sodium 143 135 - 145 06/05/2018 [facility] [place] mmol/L 9:07 AM [facility] [place] Potassium 3.2 (L) 3.5 - 5.1 06/05/2018 [facility] [place] mmol/L 9:07 AM [facility] Comment: . Chloride 101 98 - 107 mmol/L 06/05/2018 9:07 AM [facility] [place] Comment: . CO2 32 (H) 22 - 31 mmol/L 06/05/2018 9:07 AM [facility] [place] Comment: . Creatinine 1.2 0.6 - 1.4 mg/dL 06/05/2018 9:07 AM [facility] [place] Comment: . BUN 14 5 - 25 mg/dL 06/05/2018 9:07 AM [facility] [place] Comment: . Glucose 107 (H) 70 - 100 mg/dL 06/05/2018 9:07 AM [facility] [place] Calcium, Total,S 9.8 8.4 - 10.2 mg/dL 06/05/2018 9:07 AM [facility] [place] Comment: . Fasting? Yes 06/05/2018 9:00 AM [facility]3] CAN NON [place] Specimen Anatomical Collection Method Collection Time Receive d Time (Source) Location / / Volume Laterality Blood (Blood, 06/05/2018 8:53 AM 06/05/19 19 9:00 Venous) WAREHOUSE ORDER FILLER AM WAREHOUSE ORDER FILLER Laila Loco APRN, CNP LAB BLOOD ORDERABLES Performing Organization Address City/State/ZIP Code Phon e Number [facility] [place] [address] [place] [address] (ABNORMAL) Lipid panel (06/05/2018 8:53 AM WAREHOUSE ORDER FILLER) athologist Signature Cholesterol 171 0 - 199 06/05/2018 [facility] mg/dL 1:35 PM [facility] Comment: Recommended by National Cholesterol Education Program (ATP III) -------- Cholesterol Ranges -------- <200 ? Desirable 200-239 ? Borderline high >=240 ? High Triglycerides 142 0 - 149 mg/dL 06/05/2018 1:35 PM [facility] Comment: -------- TRIG Ranges -------- <150 ?Normal 150-199 ? Borderline high 200-499 ? High >=500 ? Very high HDL 37 (A) 40 - 60 mg/dL 06/05/2018 1:35 PM [facility] Comment: -------- HDL Ranges -------- <40 ?Low 40-59 ?Normal >=60 ? Optimal LDL Calculated 106 (A) 0 - 99 mg/dL 06/05/2018 1:35 PM [facility] Comment: -------- LDL Ranges -------- <100 ? Optimal 100-129 ?Near optimal/above op timal 130-159 ?Borderline high 160-189 ?High >=190 ?Very high Specimen Anatomical Collection Method Collection Time Receive d Time (Source) Location / / Volume Laterality Blood (Blood, 06/05/2018 8:53 AM 06/05/19 19 Venous) WAREHOUSE ORDER FILLER 12:43 PM WAREHOUSE ORDER FILLER Laila Loco APRN, CNP LAB BLOOD ORDERABLES Performing Organization Address City/State/ZIP Code Phon e Number [facility] [address] [place] [address] Ear cerumen removal (06/05/2018 8:00 AM WAREHOUSE ORDER FILLER) Narrative Laila Loco APRN, CNP - 019 8:00 AM WAREHOUSE ORDER FILLER Rosalee Simmons MA ? 06/12/2018 ??6:53 AM Ear cerumen removal Date/Time: 06/05/2018 9:29 AM Performed by: Rosalee Simmons MA Authorized by: Laila Loco APRN, CNP Consent: ??Consent obtained: ??Verbal ??Consent given by: ??Patient ??Risks discussed: ??Dizziness, incompl ete removal and pain Procedure details: ??Location: ??L ear ??Procedure type: curette ?? Post-procedure details: ??Inspection: ??TM intact ??Patient tolerance of procedure: ??Swetha erated with difficulty Comments: ?? Patient experienced some dizziness. Laid patient down and let him rest. Dizziness passed and continued with irri gation. Laila Loco APRN, CNP IN CLINIC/BEDSIDE ORDERAB LES documented in this encounter Visit Diagnoses Diagnosis 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, unspecified vessel or lesion type, unspecified whether [place] or transplant ed heart - Primary Hyperlipidemia, unspecified hyperlipidem ia type Gastroesophageal reflux disease without esophagitis Esophageal reflux Impacted cerumen of left ear Impacted cerumen Screening for diabetes mellitus Screening, anemia, deficiency, iron Screening for iron deficiency anemia Screening for prostate cancer Special screening for malignant neoplasm of prostate documented in this encounter Care Teams Body Component Engineer Relationship Specialty Start Date End Date Laila Loco APRN, CNP PCP - General 12/09/17 01/10/20 [address] [place] [address] documented as of this encounter
--- OUTSIDE RECORDS SUMMARY | 2021-12-17 09:44 | XMS_ITS | Encounter Summary ---
:1940 Author Organization [facility] Address [address] [place] [address] Care Team Providers Name Role Phone Laila Loco CAR SHUNTER, FOOTBALL COACH Primary Care Provider [phone] Reason for Visit Reason Onset Date Comments MRI 08/10/2018 Encounter Details Date Type Department Care Team Description 08/10/2018 Telephone [place] Laila Loco, MRI [address] CAR SHUNTER, FOOTBALL COACH [place] [address] [address] [facility] [address] [phone] [place], [place] [address] Social History Tobacco Use [...] Encounter - Laila Loco APRN, CNP - 08/13/2018 12:11 PM CDT The patient will follow up on Friday to review the MRI results. Telephone Encounter - Rosalee Simmons MA - 08/13/2018 12:02 PM CDT Please advise Telephone Encounter - Elsy Saunders - 08/13/2018 11:54 AM CDT Patient is calling to find out what the next step is after the MRI appt this morning. Should he makean appt for results with with Rajan or Dr. Dodson? Please advise. He would like to speak with Rajanif possible. Telephone Encounter - Rosalee Simmons MA - 08/11/2018 2:20 PM CDT Rx was faxed. Telephone Encounter - Laila Loco APRN, CNP - 08/11/2018 2:02 PM CDT Please fax to [facility] as the patient will pick this up today. Thanks, Rajan Telephone Encounter - Nisha Morrison RN - 08/11/2018 1:47 PM CDT Did you call this patient. Telephone Encounter - Aliza Calhoun 08/11/2018 1:30 PM CDT Patient returned a call from clinic. Telephone Encounter - Elsy Saunders - 08/11/2018 11:57 AM CDT Patient returning Rajan' call. Please try again when able. Telephone Encounter - Elsy Saunders - 08/10/2018 3:37 PM CDT Neck and shoulder MRI being done [facility]. The patient is requesting pain meds as they told him these being done at the same time and it hurts for him to lay. Patient uses [facility] in [facility]. documented in this encounter Plan of Treatment Not on filedocumented as of this encounter Visit Diagnoses Not on filedocumented in this encounter Care Teams Geospatial Scientist Relationship Specialty Start Date End Date Laila Loco APRN, FOOTBALL COACH PCP - General 12/09/17 01/10/[address] [place] [address] [place]ARIEL VERA [id number] documented as of this encounter
--- OUTSIDE RECORDS SUMMARY | 2021-12-17 09:45 | XMS_ITS | Encounter Summary ---
:1940 Author Organization [facility] Address [address] [place] [address] Care Team Providers Name Role Phone Silver Givens M.D. Primary Care Provider Reason for Visit Reason Comments Triage Encounter Details Date Type Department Care Team Description 12/03/2021 Clinical Communication Department of Continuity Person, [facility] Cardiovascular Medicine Marisela Kwon in [facility] bhavna [address] [place] [address] Social History Tobacco Use Types Packs/Day Years Used Date Smoking Tobacco: Former Smokeless Tobacco: Never Alcohol Use Standard Drinks/Week Comments No 0 (1 standard drink = 0.6 oz pure alcoho l) Sex Assigned at Date Recorded Not on file documented as of this encounter Miscellaneous Notes Telephone Encounter - Elsy Ventura - 12/03/2021 9:24 AM CDT POST HOSP VISIT: Orders were placed for an Echo Stress and consult with a Continuity Person per patient's ED visit. Pleasereview and advise if we should scheduled in General Cardiology & if any additional tests are needed. documented in this encounter Plan of Treatment Not on filedocumented as of this encounter Visit Diagnoses Not on filedocumented in this encounter Additional Health Concerns Assessment Noted Time PHQ-9 Depression Total Score: 2 03/08/2015 11:16 AM CS T documented as of this encounter Care Teams New Accounts Representative Relationship Specialty Start Date End Date Silver Givens M.D. PCP - General Family Medicine 11/10/19 12/09/[id number] [place] [phone] documented as of this encounter
--- OUTSIDE RECORDS SUMMARY | 2021-12-17 09:45 | XMS_ITS | Encounter Summary ---
:1940 Author Organization [facility] Address [address] [place] [address] Care Team Providers Name Role Phone Elsewhere, Pcp Primary Care Provider Unavailable Encounter Details Date Type Department Care Team Description 12/10/2021 Surgery Division of Cardiovascular Angella Costello oronary Angiography Diseases in Matty Yung M .D. [place] [address] [facility] [address] [place] [id number] [phone] Social History Tobacco Use Types Packs/Day Years Used Date Smoking Tobacco: Former Smokeless Tobacco: Never Alcohol Use Standard Drinks/Week Comments No 0 (1 standard drink = 0.6 oz pure alcoho l) Sex Assigned at Date Recorded Not on file documented as of this encounter Last Filed Vital Signs Vital Sign Reading Time Taken Comments Blood Pressure 164/84 12/10/2021 9:09 AM CDT Pulse 58 12/10/2021 9:09 AM CDT Temperature 36.8 ??C (98.2 ??F) 12/10/2021 9:09 AM CDT Respiratory Rate 18 12/10/2021 9:09 AM CDT Oxygen Saturation 97% 12/10/2021 9:09 AM CDT Inhaled Oxygen Concentration - - Weight 72.6 kg (160 lb 0.9 oz) 12/10/2021 9:17 AM CDT Height 168.5 cm (5' 6.34) 12/10/2021 9:09 AM CDT Body Mass Index 25.57 12/10/2021 9:09 AM CDT documented in this encounter Discharge Instructions AttachmentsThe following attachments cannot be sent through Care Everywhere.Care Following Your Catheter Procedure (Citizen Of [place])documented in this encounter Medications at Time of Discharge Medication Sig Dispensed Refills Start Date End Date aspirin-calcium carbonate Take 1 tablet by 0 81 mg-300 mg calcium(777 mouth. mg) tablet atorvastatin Take 80 mg by mouth 0 01/27/2017 (for_LIPITOR) 80 mg daily. tablet isosorbide mononitrate Take 1 tablet (30 30 tablet 11 202111/30/2022 (IMDUR) 30 mg 24 hr mg total) by mouth tablet daily. metoprolol succinate Take 0.5 tablets 15 tablet 0 9 (TOPROL-XL) 25 mg 24 hr (12.5 mg total) by tablet mouth daily. pantoprazole (PROTONIX) Take 1 tablet (40 90 tablet 3 03/07 40 mg EC tablet mg total) by mouth daily. ZETIA 10 mg tablet Take 10 mg by mouth 0 01/09/20 17 daily. nitroglycerin (NITROSTAT) Place 1 tablet (0.4 100 tablet 1 0 11/30/2021 0.4 mg SL tablet mg total) under the tongue every 5 (five) minutes as needed for chest pain. documented as of this encounter Nursing Notes Shelly Van R.N. - 12/10/2021 1:12 PM CDT The patient???s radial site / dressing is dry and intact. Vital signs are stable. No complaints of chest pain. Palpable radial pulse. Normal plethysmography of the right index finger with manual ulnar occlusion applied. No hematoma or bleeding present. No change in neuro status from prior to procedure. Ambulated without difficulty. Dismissal instructions were reviewed in detail as per [id number] with patient and family. They verbalized understanding. Follow up appointment is arranged. Patient was dismissed when discharge criteria was met, accompanied by . All questions answered. documented in this encounter Plan of Treatment Not on filedocumented as of this encounter Procedures Procedure Name Priority Date/Time Associated Comments Diagnosis CARDIAC CATHETERIZATION Routine 12/10/2021 10:59 [address] Stre ss Results for this AM CDT Test procedure are in Atherosclerotic the results Heart Disease section. 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) ADULT OXYGEN THERAPY Routine 12/10/2021 10:08 AM CDT documented in this encounter Results CORONARY ANGIOGRAPHY (12/10/2021 10:59 AM CDT) Anatomical Region Laterality Modality X-Ray Angiography Specimen (Source) Anatomical Collection Method Collection Time Re ceived Time Location / / Volume Laterality 12/10/2021 10:20 AM CDT Narrative 12/10/2021 3:42 PM CDT For the complete report, see the Order-L evel Documents. PROCEDURE TYPES 1. ??CORONARY ANGIOGRAPHY FINAL DIAGNOSIS 1. ??Mild coronary artery atherosclerosi s PRE-PROCEDURE DIAGNOSIS 1. ??Abnormal Stress Test 2. 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) CORONARY DIAGNOSTIC SUMMARY Coronary artery dominance is right. Norm al left main coronary. Normal LAD coronary. The proximal circumflex artery is 30% ob structed by a discrete lesion. The distal circumflex artery is 30% obst ructed by multiple discrete lesions. The distal segment is normal size, diseased. The first obtuse marginal is 30% obstruc doc by a discrete lesion. The distal segment is normal size, diseased. The proximal right coronary artery is 30 % obstructed by a discrete lesion. The distal right coronary artery is 20% obstructed by multiple discrete lesions. The distal segment is normal size, diseased. widely patent stents in LAD and RCA. RADIATION DOSE DATA Procedure cumulative skin dose (mGy): 36 8.33 Procedure cumulative dose area product ( Gy-cm2): 19.91 Fluoro Time (Min): 13.80 CONTRAST DOSE DATA IOHEXOL 350 MG IODINE/ML INTRAVENOUS JAMES UTION: 65mL For the complete report, see the Order-L evel Documents. Darvin Corral M.D. CV CARDIAC CATH PROCEDURES documented in this encounter Visit Diagnoses Diagnosis Abnormal Stress Test Atherosclerotic Heart Disease [place] 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) (HCC) Atherosclerotic Heart Disease Of [place] Coronary Artery Without Angina Pectoris Abnormal Stress Test Atherosclerotic Heart Disease [place] 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) ([facility]) documented in this encounter Admitting Diagnoses Diagnosis Atherosclerotic Heart Disease Of [place] Coronary Artery Without Angina Pectoris Abnormal Stress Test documented in this encounter Administered Medications Inactive Administered Medications - up to 3 most recent administrations Medication Order MAR Action Action Date Dose Rate Site acetaminophen suppository 650 mg (TYLENO L) 650 mg, rectal, Every 6 hours PRN, mild pain or score 1-3 of 10, Starting on Fri12/10/21 at 1157, Postprocedure (CV), If unable to give orally acetaminophen tablet 1,000 mg (TYLENOL) 1,000 mg, oral, Every 6 hours PRN, mild pain or score 1-3 of 10, Starting on Fri12/10/21 at 1157, Postprocedure (CV) aspirin chewable tablet 324 mg Given 12/10/2021 9:22 AM CDT 324 mg 324 mg, oral, Once, On Fri12/10/21 at 0930, For 1 dose, Preprocedure (CV) clopidogreL tablet (PLAVIX) Given 12/10/2021 10:05 AM CDT 300 mg As needed, Starting on Fri12/10/21 at 1005, Intraprocedure (CV) fentaNYL injection (SUBLIMAZE) Given 12/10/2021 10:19 AM CDT 25 mcg As needed, Starting on Fri12/10/21 at 1015, Intraprocedure (CV) Given 12/10/2021 10:15 AM CDT 25 mcg fentaNYL injection 25 mcg (SUBLIMAZE) 25 mcg, intravenous, Every 2 min PRN, sedation, Admini ster over 1 minute immediately prior to the procedure. May repeat every 2 minutes to a maximum of 200 mcg, until pain score of 3 or less, or until the patie nt meets the pain comfort goal. Do not give if respiratory rate is less than 8 breaths/minute, Starting on Fri12/10/21 at 1008, Intraprocedure (CV) flumazeniL injection 0.2 mg (ROMAZICON) 0.2 mg, intravenous, Once as needed, rev ersal, Starting on Fri12/10/21 at 1008, For 1 dose, Intraprocedure (CV), Administer once if patient has a RASS score of -4, -5 and has a respiratory rate less than 8 breaths/minute. heparin (porcine) 1,000 unit/mL Given 12/10/2021 10:28 AM CDT 5, 000 Units injection As needed, Starting on Fri12/10/21 at 1028, Intraprocedure (CV) iohexoL 350 mg iodine/mL solution (OMNIP AQUE) Given 12/10/2021 10:52 AM CDT 65 mL As needed, Starting on Fri12/10/21 at 1052, Intraprocedure (CV) lidocaine 10 mg/mL (1 %) injection Given 12/10/2021 10:22 AM CDT 2 mL Right Wrist (XYLOCAINE) As needed, Starting on Fri12/10/21 at 1022, Intraprocedure (CV) midazolam (PF) injection 0.25 mg (VERSED ) 0.25 mg, intravenous, Every 2 min PRN, s edation, RASS -2, Starting on Fri12/10/21 at 1008, Intraprocedure (CV), May repeat ev jennifer 2 minutes to a maximum of 5 mg. Do not give if respiratory rate is less than 8 breaths/minute . midazolam (PF) injection 0.5 mg (VERSED) 0.5 mg, intravenous, Once as needed, sed ation, Starting on Fri12/10/21 at 1008, For 1 dose, Intraprocedure (CV) midazolam (PF) injection 0.5 mg (VERSED) Given 12/10/2021 10:40 AM CDT 0.5 mg 0.5 mg, intravenous, Every 2 min PRN, sedation, RASS -1, Starting on Fri12/10/21 at 1008, Intraprocedure (CV), May repeat every 2 minutes for a maximum of 5 mg. Do not give if respiratory rate is less than 8 breaths/minute. Given 12/10/2021 10:15 AM CDT 0.5 mg midazolam (PF) injection 1 mg (VERSED) 1 mg, intravenous, Every 2 min PRN, sedation, RASS 0, Starting on Fri12/10/21 at 1008, Intraprocedure (CV), May repeat ev jennifer 2 minutes for a maximum of 5 mg. Do not give if respiratory rate is less than 8 breaths/minute . NaCl 0.9% infusion New Bag 12/10/2021 9:22 3.5 mL/kg/hr 254 mL/hr Left Antecub ital 3.5 mL/kg/hr ? AM CDT 72.6 kg Dosing weight (254.1 mL/hr, rounded to 254 mL/hr), intravenous, Once, On Fri12/10/21 at 0930, For 1 dose, Preprocedure (CV), Administer as soon as possible. Limit total pre-procedure fluid to 1000 mL. NaCl 0.9% infusion 20 mL/hr, intravenous, Once as needed, t o keep vein open, Starting on Fri12/10/21 at 1008, For 1 dose, Intraprocedure (CV) naloxone injection 0.2 mg (NARCAN) 0.2 mg, intravenous, Once as needed, res piratory depression, Starting on Fri12/10/21 at 1008, For 1 dose, Intraprocedure (CV), Administer o nce if patient has a RASS score of -4, -5 and has a respiratory rate less than 8 breaths/minute. nitroglycerin SL tablet (NITROSTAT) Given 12/10/2021 10:30 AM CDT 0.4 mg Tong ue As needed, Starting on Fri12/10/21 at 1030, Intraprocedure (CV) ondansetron (PF) injection 4 mg (ZOFRAN) 4 mg, intravenous, Once as needed, nause a, Starting on Fri12/10/21 at 1157, For 1 dose, Postprocedure (CV), First line option sodium chloride 0.9 % injection 10 mL 10 mL, intravenous, As needed, line care, Starting on Fri12/10/21 at 0916, Preprocedure (CV), Peripheral Intravenous Catheter and Rapid Infusion Catheter, prior to blood sampling, post blood transfusion or pos t blood sampling sodium chloride 0.9 % injection 10 mL 10 mL, intravenous, As needed, line care, Starting on Fri12/10/21 at 1008, Intraprocedure (CV), Peripheral Intraven ous Catheter and Rapid Infusion Catheter, prior to blood sampling, post blood transfusion or pos t blood sampling sodium chloride 0.9 % injection 3 mL 3 mL, intravenous, As needed, line care, Starting on M on 12/10/21 at 0916, Preprocedure (CV), Prior to and followin g infusion and between multiple consecutive infusions: sodium chloride 0.9 % injection sodium chloride 0.9 % injection 3 mL 3 mL, intravenous, Every 12 hours scheduled, First dos e on Fri12/10/21 at 2100, Preprocedure (CV), Peripheral Intravenous Catheter and Rapid Infusion Catheter, when no infusion to maintain patency sodium chloride 0.9 % injection 3 mL 3 mL, intravenous, As needed, line care, Starting on M on 12/10/21 at 1008, Intraprocedure (CV), Prior to and following infusion a nd between multiple consecutive infusions: sodium chloride 0.9 % injection sodium chloride 0.9 % injection 3 mL 3 mL, intravenous, Every 12 hours scheduled, First dos e on Fri12/10/21 at 2100, Intraprocedure (CV), Peripheral Intraven ous Catheter and Rapid Infusion Catheter, when no infusion to maintain patency documented in this encounter Active and Recently Administered Medications Times are shown in CDT. Scheduled Medication Order 12/08/2021 12/09/2021 12/10/2021 aspirin chewable tablet 324 mg (COMPLETED) 921 (Given - Provider: Tonya Sam R.N.) 324 mg, oral, Once, On Fri12/10/21 at 0930, For 1 dose, Preproced ure (CV) NaCl 0.9% infusion (COMPLETED) 0 922 (New Bag - Provider: Tonya Sam R.N.) 3.5 mL/kg/hr ? 72.6 kg Dosing weight (254.1 mL/hr, rounded to 254 mL/hr), intravenous, Once, On Fri12/10/21 at 0930, For 1 dose, Preprocedure (CV), Administer as soon as possible. Limit total pre-procedure fluid to 1000 mL. sodium chloride 0.9 % injection 3 mL 3 mL, intravenous, Every 12 hours schedu led, First dose on Fri12/10/21 at 2100, Preprocedure (CV), Peripheral Intravenous Catheter and Rapid Infusion Catheter, when no infusion to maintain patency sodium chloride 0.9 % injection 3 mL 3 mL, intravenous, Every 12 hours schedu led, First dose on Fri12/10/21 at 2100, Intraprocedure (CV), Peripheral Intravenous Catheter and Rapid Infusion Catheter, when no infusion to maintain patency PRN Medication Order 12/08/2021 12/09/2021 12/10/2021 acetaminophen suppository 650 mg (TYLENOL)(Linked Group 1) 650 mg, rectal, Every 6 hours PRN, mild pain or score 1-3 of 10, Starting on Fri12/10/21 at 1157, Postprocedure (CV), If unable to give orally acetaminophen tablet 1,000 mg (TYLENOL)(Linked Group 1) 1,000 mg, oral, Every 6 hours PRN, mild pain or score 1-3 of 10, Starting on Fri12/10/21 at 1157, Postprocedure (CV) clopidogreL tablet (PLAVIX) (CANCELED) 1005 (Given - Provider: Sakina Moy R.N.) As needed, Starting on Fri12/10/21 at 1005, Intraprocedure (CV) fentaNYL injection (SUBLIMAZE) (CANCELED) 1015 (Given - Provider: Sakina Moy RKumar.)1019 (Given - Provider: Sakina Moy R.N.) As needed, Starting on Fri12/10/21 at 1015, Intraprocedure (CV) fentaNYL injection 25 mcg (SUBLIMAZE) 25 mcg, intravenous, Every 2 min PRN, se dation, Administer over 1 minute immediately prior to the procedure. May repeat every 2 minutes to a maximum of 200 mcg, until pain score of 3 or less, or until t he patient meets the pain comfort goal. Do not give if respiratory rate is less than 8 breaths/minute, Starting on Fri12/10/21 at 1008, Intraprocedure (CV) flumazeniL injection 0.2 mg (ROMAZICON) 0.2 mg, intravenous, Once as needed, rev ersal, Starting on Fri12/10/21 at 1008, For 1 dose, Intraprocedure (CV), Administer once if patient has a RASS score of -4, -5 and has a respiratory rate less than 8 breaths/minute. heparin (porcine) 1,000 unit/mL injection (CANCELED) 1028 (Given - Provider: Sakina Moy R.N.) As needed, Starting on Fri12/10/21 at 1028, Intraprocedure (CV) iohexoL 350 mg iodine/mL solution (OMNIPAQUE) (CANCELED) 1052 (Given - Provider: Angella Costello M.D.) As needed, Starting on Fri12/10/21 at 1052, Intraprocedure (CV) lidocaine 10 mg/mL (1 %) injection (XYLOCAINE) (CANCELED) 1022 (Given - Provider: Andrea Obrien, .B.) As needed, Starting on Fri12/10/21 at 1022, Intraprocedure (CV) midazolam (PF) injection 0.25 mg (VERSED) 0.25 mg, intravenous, Every 2 min PRN, s edation, RASS -2, Starting on Fri12/10/21 at 1008, Intraprocedure (CV), May repeat every 2 minutes to a maximum of 5 mg. Do not give if respiratory rate is less than 8 breaths/minute. midazolam (PF) injection 0.5 mg (VERSED) 0.5 mg, intravenous, Once as needed, sed ation, Starting on Fri12/10/21 at 1008, For 1 dose, Intraprocedure (CV) midazolam (PF) injection 0.5 mg (VERSED) 1015 (Given - Provider: Sakina Moy R.N.)1040 (Given - Provider: Sakina Moy R.N.) 0.5 mg, intravenous, Every 2 min PRN, se dation, RASS -1, Starting on Fri12/10/21 at 1008, Intraprocedure (CV), May repeat every 2 minutes for a maximum of 5 mg. Do not give if respiratory rate is less than 8 breaths/minute. midazolam (PF) injection 1 mg (VERSED) 1 mg, intravenous, Every 2 min PRN, matt tion, RASS 0, Starting on Fri12/10/21 at 1008, Intraprocedure (CV), May repeat every 2 minutes for a maximum of 5 mg. Do not give if respiratory rate is less than 8 breaths/minute. NaCl 0.9% infusion 20 mL/hr, intravenous, Once as needed, t o keep vein open, Starting on Fri12/10/21 at 1008, For 1 dose, Intraprocedure (CV) naloxone injection 0.2 mg (NARCAN) 0.2 mg, intravenous, Once as needed, res piratory depression, Starting on Fri12/10/21 at 1008, For 1 dose, Intraprocedure (CV), Administer once if patient has a RASS score of -4, -5 and has a respiratory rate less than 8 breaths/minute. nitroglycerin SL tablet (NITROSTAT) (CANCELED) 1030 (Given - Provider: Sakina Moy R.N.) As needed, Starting on Fri12/10/21 at 1030, Intraprocedure (CV) ondansetron (PF) injection 4 mg (ZOFRAN) 4 mg, intravenous, Once as needed, nause a, Starting on Fri12/10/21 at 1157, For 1 dose, Postprocedure (CV), First line option sodium chloride 0.9 % injection 10 mL 10 mL, intravenous, As needed, line care , Starting on Fri12/10/21 at 0916, Preprocedure (CV), Peripheral Intravenous Catheter and Rapid Infusion Catheter, prior to blood sampling, post blood transfusion or post blood sampling sodium chloride 0.9 % injection 10 mL 10 mL, intravenous, As needed, line care , Starting on Fri12/10/21 at 1008, Intraprocedure (CV), Peripheral Intravenous Catheter and Rapid Infusion Catheter, prior to blood sampling, post blood transfusion or post blood sampling sodium chloride 0.9 % injection 3 mL 3 mL, intravenous, As needed, line care, Starting on Fri12/10/21 at 0916, Preprocedure (CV), Prior to and following infusion and between multiple consecutive infusions: sodium chloride 0.9 % injection sodium chloride 0.9 % injection 3 mL 3 mL, intravenous, As needed, line care, Starting on Fri12/10/21 at 1008, Intraprocedure (CV), Prior to and following infusion and between multiple consecutive infusions: sodium chloride 0.9 % injection Linked Groups Order Group 1: acetaminophen tablet 1,000 mg (TYLENOL)Jump to med 1,000 mg, oral, Every 6 hours PRN, mild pain or score 1-3 of 10, Starting on Fri12/10/21 at 1157, Postprocedure (CV) Or acetaminophen suppository 650 mg (TYLENOL)Jump to med 650 mg, rectal, Every 6 hours PRN, mild pain or score 1-3 of 10, Starting on 12/10/21 at 1157, Postprocedure (CV)
If unable to give orally
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
--- OUTSIDE RECORDS SUMMARY | 2021-12-17 09:45 | XMS_ITS | Encounter Summary ---
:1940 Author Organization [facility] Address [address] [place] [address] Care Team Providers Name Role Phone Silver Givens M.D. Primary Care Provider Reason for Referral Outpatient (Routine) - Authorized Specialty Diagnoses / Procedures Referred By Contact Refer red To Contact Cardiovascular Disease Darvin Corral [facility] M.D. [address] [place] [address] Referral ID Status Reason Start Date Expiration Date Visits V isits Requested Authorized [id number] Authorized 12/07/2021 12/07/2022 1 1 Reason for Visit Outpatient (Routine) - Closed Specialty Diagnoses / Procedures Referred By Contact Refer red To Contact Cardiovascular Disease Nic Mitchell [place] [facility] P.A.-C., MLaraSL[facility] [address] [place] [address] Referral ID Status Reason Start Date Expiration Date Visits Requ ested Visits Authorized [id number] Closed 12/03/2021 12/03/2022 1 1 Encounter Details Date Type Department Care Team Description 12/07/2021 Office Visit Department of Darvin Corral Abnormal St ress Test (Primary Dx); Cardiovascular Medicine Marisela Gallardo Atherosclerotic Heart Disease Chitina 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) (FORMERLY [facility]) in [facility] 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 [address] [place] [id number] [phone] Social History Tobacco Use Types Packs/Day Years Used Date Smoking Tobacco: Former Smokeless Tobacco: Never Alcohol Use Standard Drinks/Week Comments No 0 (1 standard drink = 0.6 oz pure alcoho l) Sex Assigned at Date Recorded Not on file documented as of this encounter Last Filed Vital Signs Vital Sign Reading Time Taken Comments Blood Pressure 142/68 12/07/2021 11:03 AM CDT Pulse 49 12/07/2021 11:03 AM CDT Temperature - - Respiratory Rate - - Oxygen Saturation - - Inhaled Oxygen Concentration - - Weight 72.4 kg (159 lb 9.8 oz) 12/07/2021 11:03 AM CDT Height 166.4 cm (5' 5.51) 12/07/2021 11:03 AM CDT Body Mass Index 26.15 12/07/2021 11:03 AM CDT documented in this encounter Progress Notes Darvin Corral M.D. - 12/07/2021 11:45 AM CDT SUBJECTIVE CHIEF COMPLAINT / REASON FOR VISIT Stress echo reviewed HISTORY OF PRESENT ILLNESS Obey Vines is a 81 y.o. male who presents for review of recent stress echo. Patient has medical history pertinent for CAD, STEMI status post SHAHAB in thrombectomy to mid RCA in December 2011, NSTEMI status post stent to the proximal LAD in August 2018, hyperlipidemia, PMR, iron deficiency anemia, GERD, and Almeida's esophagus. Briefly, the patient presented to the ED on November 30, 2021 for chest pain. At this point, he describes left-sided pressure sensation that been present for several months and had progressively increased in frequency. This was associated with dyspnea on exertion when walking 10-22 minutes and resolving within 2-5 minutes. No symptoms at rest. Denied any dry heaves, dizziness, lightheadedness, nausea, orvomiting. Initial troponin was negative, NT-proBNP was 227, BMP and CBC were normal. ECG was reportedly normal compared to January 2020. Chest x- ray unrevealing. Blood pressure elevated 173/88. He was initiated on Imdur. He was recommended to continue on metoprolol 12.5 mg daily, aspirin 81 mg daily, atorvastatin 80 mg daily, and Zetia 10 mg daily. He was also scheduled for stress TTE which was recently performed and the reason for his visit. Recent stress TTE was positive for ischemia. He was able to perform 5 Mets, 61% of AC, limited exercise capacity. Test was terminated because of fatigue and dyspnea. EF at rest 60% and peak stress 70%.Decreased LVESV with stress. Regional motion abnormalities with stress were new. Fortunately, the patient is doing well today. He is asymptomatic. He has not had return of symptoms since ED visit. His blood pressure is improved today at 142/68. He is compliant with his medications and tolerating the Imdur well. We discussed the findings from the stress test. He does mention that he gets extremely mad when he is stressed and can elevate his blood pressure. He believes this may have contributed to his recent symptoms. OBJECTIVE VITALS: BP 142/68 (BP Location: Left arm, Patient Position: Sitting, Cuff Size: Regular) Pulse (!)49 Ht 166.4 cm Wt 72.4 kg BMI 26.15 kg/m?? PHYSICAL EXAM Physical Exam No acute distress. Present with . Stress Test 12/05/2021: Final Impressions 1. Exercise echocardiogram positive for myocardial ischemia 2. The patient's exercise capacity was limited. 3. The patient exercised for 5:00 min:sec on the Oxygen protocol. 4. The patient achieved a workload of 5 METS and 61% FAC. 5. The test was terminated due to fatigue and dyspnea. 6. Ejection fraction response from 60% at rest to 70% at peak stress. 7. Left ventricular end-systolic volume decreased with stress. 8. New regional wall motion abnormalities following stress. 9. The stress ECG was positive for ischemia. ASSESSMENT / PLAN # Positive stress TTE # Coronary artery disease - s/p stenting mid RCA 2011 and stenting proximal LAD 2018 # Hyperlipidemia # Epigastric pain suspect possible GI etiology # GERD and Almeida's esophagus Obey Vines is a 81 y.o. male who presents for review of recent stress echo. Patient has medical history pertinent for CAD, STEMI status post SHAHAB in thrombectomy to mid RCA in December 2011, NSTEMI status post stent to the proximal LAD in August 2018, hyperlipidemia, PMR, iron deficiency anemia, GERD, and Almeida's esophagus. Patient has significant history of coronary artery disease with 2 episodes of stenting in the last 10 years -- wants to the mid RCA in 2011 and another to the proximal LAD in 2018. While his symptoms are not exactly the same as prior events and his symptoms have improved since his recent ED visit, haspositive stress test and known coronary artery disease are concerning. We will plan for coronary catheterization with potential PCI early next week. We discussed the importance of controlling blood pressure and minimizing stress as these can exacerbate or even provoke symptoms. Blood pressure in better range today and recommended to remain compliant with medications. Patient and were understanding. If any concerning symptoms arose before that time, he is recommended to present to the ED for further evaluation. PLAN - Coronary catheterization possible PCI next week More than 30 minutes were spent in chart review, evaluation, and documentation. The patient agreed with the aforementioned plan. All question concerns were addressed prior to the end of today's appointment to the best my ability. This patient was staffed with Dr. Arce, who agreed with the assessment plan. documented in this encounter Plan of Treatment Scheduled Referrals Name Type Priority Associated Order Schedule Diagnoses Cardiovascular Disease Outpatient Referral Routine Expected: nurse visit (clinic) 022 (Approximate), Expires: 03/09/2023 documented as of this encounter Visit Diagnoses Diagnosis Abnormal Stress Test - Primary Atherosclerotic Heart Disease Chitina 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) (HCC) documented in this encounter Additional Health Concerns Infection Onset Date Last Indicated Resolved Time COVID19 Pending 12/07/2021 12/07/2021 12/07/2021 4:30 PM CDT Assessment Noted Time PHQ-9 Depression Total Score: 2 03/08/2015 11:16 AM CS T documented as of this encounter Care Teams Stock Manager Relationship Specialty Start Date End Date Silver Givens M.D. PCP - General Family Medicine 11/10/19 12/09/[id number] [place] [address] [phone] documented as of this encounter
--- OUTSIDE RECORDS SUMMARY | 2021-12-17 09:45 | XMS_ITS | Encounter Summary ---
:1940 Author Organization [facility] Address [address] [place] [address] Care Team Providers Name Role Phone Elsewhere, Pcp Primary Care Provider Unavailable Reason for Referral Outpatient (Routine) - Closed Specialty Diagnoses / Procedures Referred By Contact Refer red To Contact Diagnoses Pain Chest Atherosclerotic Heart Disease Of [place] Coronary Artery Without Angina Pectoris Nic Mitchell P.A.-C., [facility] Procedures Echo Stress M.S. [address] [place] [address] Referral ID Status Reason Start Date Expiration Date Visits Requ ested Visits Authorized [id number] Closed 12/03/2021 12/03/2022 1 1 Outpatient (Routine) - Closed Specialty Diagnoses / Procedures Referred By Contact Refer red To Contact Cardiovascular Disease Nic Mitchell, [facility] Laura, M.SLara [address] [place] [address] Referral ID Status Reason Start Date Expiration Date Visits Requ ested Visits Authorized [id number] Closed 12/03/2021 12/03/2022 1 1 Encounter Details Date Type Department Care Team Description 12/03/2021 Orders Only Department of Nic Mitchell Pain Chest ( Primary Dx); Cardiovascular Medicine Laura Patel Athe rosclerotic Heart Disease Of [place] Coronary Artery Without Angina Pectoris in [facility] M.S. [address] [place] [id number] [phone] Social History Tobacco Use Types Packs/Day Years Used Date Smoking Tobacco: Former Smokeless Tobacco: Never Alcohol Use Standard Drinks/Week Comments No 0 (1 standard drink = 0.6 oz pure alcoho l) Sex Assigned at Date Recorded Not on file documented as of this encounter Plan of Treatment Scheduled Referrals Name Type Priority Associated Order Schedule Diagnoses Cardiovascular Disease Outpatient Referral Routine Expected: office visit (clinic) 2021 General (Approximate), Expires: 03/05/2023 documented as of this encounter Results ECHO STRESS 2D WITH COLOR, LIMITED DOPPLER AND CONTRAST (12/05/2021 1:49 PM CDT) [facility] gist Method Time Signature Ejection Fraction 60 MC CV EIMS Sinus of Valsalva 34 MC CV EIMS Mid-Ascending Aorta 36 MC CV EIMS LV Mass Index 90 MC CV EIMS LV End-Diastolic 49 MC CV EIMS Diameter LV End-Systolic 32 MC CV EIMS Diameter LV End-Diastolic 119 MC CV EIMS Volume LV End-Systolic 46 MC CV EIMS Volume MV E Velocity 1 MC CV EIMS MV A Velocity 0.70 MC CV EIMS MV E/A 1.43 MC CV EIMS MV e' Velocity 0.08 MC CV EIMS Medial MV E/e' Medial 12.50 MC CV EIMS LV Interventricular 10 MC CV EIMS Septal Wall Thickness LV Posterior Wall 9 MC CV EIMS Thickness LV Relative Wall 37 MC CV EIMS Thickness TR Vmax 2.37 MC CV EIMS RA Pressure 5 MC CV EIMS RV Systolic Pressure 27 MC CV EIM S LA Volume Index 42 MC CV EIMS WMSI At Rest 1 MC CV EIMS WMSI At Peak Stress 1.13 MC CV EIMS Anatomical Region Laterality Modality Echocardiography Specimen (Source) Anatomical Collection Method Collection Time Re ceived Time Location / / Volume Laterality 12/05/2021 12:28 PM CDT Impressions 12/05/2021 3:16 PM CDT STRESS TEST:The patient exercised for 5:00 min:sec on the Oxygen protocol. The patient achieved a workload of 5 METS and 61% FAC. A peak heart rate of 115 BPM was achieved (82% age-predicted maximal HR) . Blood pressure at rest 162 mmHg/70 mmH g. Blood pressure with exercise 160 mmHg/70 mmHg. Normal blood pressure response to exercise. O2 sat at rest 99%, and with exercise 99%. The test was terminated due to fatigue and dyspnea. With stress, the ECG d emonstrated <1mm slow upsloping S-T depr ession. S-T depression in jinny-lateral lead(s). Th e stress ECG was positive for ischemia. VPC's ??present at stress. Findings consistent with normal left ventricular filling pressure at rest and with exercise. Th e baseline ECG demonstrated sinus rhythm . Please see Nursing Notes for additional information . REST IMAGES: LEFT VENTRICLE:Normal left ventricular c hamber size. Normal left ventricular geometry. Calculated 2-D biplane volumetric left ventricular ejection fraction 61%. No regional wall motion abnormalities. Normal left ventricular filling pressure. RIGHT VENTRICLE:Normal right ventricular chamber size. Normal right ventricular systolic function. Estimated right ventricular systolic pressure 27 mmHg (right atrial pressure of 5 mmHg). ATRIA:Moderately enlarged left atrial si ze. Left atrial volume index 42 ml/m2. Strain imaging examination performed to assess left atrial function. Global averaged left atrial longitudinal peak systolic strain is normal at 38.5% (normal is gr eater than 35%). Mildly enlarged right atrial size. CARDIAC VALVES:Trileaflet aortic valve. Sclerotic aortic valve. No aortic valve regurgitation. Thickened mitral valve. Mild mitral valve regurgitation. Normal pulmonary valve. Normal pulmonary valve systolic velocities. Trivial pulmonary valve regurgitation. Normal tricuspid valve. M ild tricuspid valve regurgitation. OTHER ECHO FINDINGS:Normal inferior vena cava size with normal inspiratory collapse (>50%). Normal sinus of Valsalva diameter of 34 mm. Normal mid ascending aorta diameter of 36 mm. No intracardiac m ass or thrombus identified. No ??pericar dial effusion. LUNG FINDINGS:Lung ultrasound performed. Abnormal aeration in both lungs suggestive of non-cardiogenic pulmonary process. B-lines evident after stress only, but location near lung apices, and pleura carlos enrique eared irregular, suggesting noncardiogen ic disorder. Clinical correlation required. Attempts were made to optimize the echocardiographic images and two or more left ventricular segments were not visualized adequately to evaluate cardiac structure. The keiry diallo's current allergies and medication s have been screened. Intravenous Lumason ultrasound enhancement agent(s) administered to enhance endocardial border definition. Imaging enhancement agent administered per Echocardiography Contrast Administration P rotocol Reference Document [id number]. P atient met an inclusion criterion and did not have contraindications in screening sections. For the complete report, see the Order-L evel Documents. Narrative 12/05/2021 3:16 PM CDT For the complete report, see the Order-Level Documents. Final Impressions 1. Exercise echocardiogram ??positive fo r myocardial ischemia. 2. The patient's exercise capacity was l imited. 3. The patient exercised for 5:00 min:se c on the Oxygen protocol. 4. The patient achieved a workload of 5 METS and 61% FAC. 5. The test was terminated due to fatigu e and dyspnea. 6. Ejection fraction response from 60% a t rest to 70% at peak stress. 7. Left ventricular end-systolic volume decreased with stress. 8. New regional wall motion abnormalitie s following stress. 9. The stress ECG was positive for ische elif. Procedure Note Torrey West M.D. - 12/05/2021Forma tting of this note might be different from the original. For the complete report, see the Order-L evel Documents. Final Impressions 1. Exercise echocardiogram positive for myocardial ischemia. 2. The patient's exercise capacity was l imited. 3. The patient exercised for 5:00 min:se c on the Oxygen protocol. 4. The patient achieved a workload of 5 METS and 61% FAC. 5. The test was terminated due to fatigu e and dyspnea. 6. Ejection fraction response from 60% a t rest to 70% at peak stress. 7. Left ventricular end-systolic volume decreased with stress. 8. New regional wall motion abnormalitie s following stress. 9. The stress ECG was positive for ische elif. Findings STRESS TEST:The patient exercised for 5: 00 min:sec on the Oxygen protocol. The patient achieved a workload of 5 METS and 61% FAC. A peak heart rate of 115 BPM was achieved (82% age-predicted maximal HR). Blood pressure at rest 162 mmHg/70 mmHg. Blood pressure wi th exercise 160 mmHg/70 mmHg. Normal blood pressure response to exercise. O2 sat at rest 99%, and with exercise 99%. The test was terminated due to fatigue and dyspnea. With stress, the ECG demonstrated <1mm slow u psloping S-T depression. S-T depression in jinny-lateral lead(s). The stress ECG was positive for ischemia. VPC's present at stress. Findings consistent with normal left ventricular filling pressure at rest and with exercise. The baseline ECG demonstrated sinus rhythm. Please see Nursing Notes for additional information. REST IMAGES: LEFT VENTRICLE:Normal left ventricular c hamber size. Normal left ventricular geometry. Calculated 2-D biplane volumetric left ventricular ejection fraction 61%. No regional wall motion abnormalities. Normal left ventricular filling pressure. RIGHT VENTRICLE:Normal right ventricular chamber size. Normal right ventricular systolic function. Estimated right ventricular systolic pressure 27 mmHg (right atrial pressure of 5 mmHg). ATRIA:Moderately enlarged left atrial si ze. Left atrial volume index 42 ml/m2. Strain imaging examination performed to assess left atrial function. Global averaged left atrial longitudinal peak systolic strain is normal at 38.5% (normal is greater than 35%). Mildly enlarged right atrial size. CARDIAC VALVES:Trileaflet aortic valve. Sclerotic aortic valve. No aortic valve regurgitation. Thickened mitral valve. Mild mitral valve regurgitation. Normal pulmonary valve. Normal pulmonary valve systolic velocities. Trivial pulmonary valve regu rgitation. Normal tricuspid valve. Mild tricuspid valve regurgitation. OTHER ECHO FINDINGS:Normal inferior vena cava size with normal inspiratory collapse (>50%). Normal sinus of Valsalva diameter of 34 mm. Normal mid ascending aorta diameter of 36 mm. No intracardiac mass or thrombus identified. No pericardial effusion. LUNG FINDINGS:Lung ultrasound performed. Abnormal aeration in both lungs suggestive of non-cardiogenic pulmonary process. B-lines evident after stress only, but location near lung apices, and pleura appeared irregular, suggesting noncardiogenic disorder. Clin ical correlation required. Attempts were made to optimize the echocardiographic images and two or more left ventricular segments were not visualized adequately to evaluate cardiac structure. The patient's current allergies and medications have been screened. Intravenous Lumason ultrasound enhancement agent(s) administered to enhance endocardial border definition. Imaging enhancement agent administered per Echocardiography Contrast Administration Protocol Reference Document [id number]. Patient met an inclusion criterion and did not have contraindications in screening sections. For the complete report, see the Order-L evel Documents. Nic Mitchell P.A.-C. M.S. CV ECHO PROCEDURES documented in this encounter Visit Diagnoses Diagnosis Pain Chest - Primary Atherosclerotic Heart Disease Of [place] Coronary Artery Without Angina Pectoris Pain Chest Atherosclerotic Heart Disease Of [place] Coronary Artery Without Angina Pectoris documented in this encounter Additional Health Concerns Infection Onset Date Last Indicated Resolved Time COVID19 Pending 12/04/2021 12/04/2021 12/04/2021 3:27 PM CDT COVID19 Pending 12/07/2021 12/07/2021 12/07/2021 4:30 PM CDT Assessment Noted Time PHQ-9 Depression Total Score: 2 03/08/2015 11:16 AM CS T documented as of this encounter Care Teams Mark Up Designer Relationship Specialty Start Date End Date Elsewhere, Pcp PCP - General Internal Medicine 12/10/21 documented as of this encounter
--- OUTSIDE RECORDS SUMMARY | 2021-12-17 09:45 | XMS_ITS | Encounter Summary ---
:1940 Author Organization [facility] Address [address] [place] [address] Care Team Providers Name Role Phone Silver Givens M.D. Primary Care Provider Encounter Details Date Type Department Care Team Description 12/07/2021 Lab Department of Laboratory Darvin Corral, Screening Examination For Viral Disease; Medicine and Pathology, MMarry Contact With And (Suspected) Exposure To COVID-19 [facility], in [address] [place] [phone] [place] [address] [phone] Social History Tobacco Use Types Packs/Day Years Used Date Smoking Tobacco: Former Smokeless Tobacco: Never Alcohol Use Standard Drinks/Week Comments No 0 (1 standard drink = 0.6 oz pure alcoho l) Sex Assigned at Date Recorded Not on file documented as of this encounter Plan of Treatment Not on filedocumented as of this encounter Procedures Procedure Name Priority Date/Time Associated Diagnosis Comme nts SARS COV-2 RNA, Routine 12/07/2021 11:30 AM Screening Resul ts for this PCR, VARIES CDT Examination For procedure ar e in Viral Disease the results Contact With And section. (Suspected) Exposure To COVID-19 documented in this encounter Results SARS CoV-2 RNA, PCR, Varies Asymptomatic (12/07/2021 11:30 AM CDT) [facility] Method Time Signature SARS CoV-2 Swab, 12/07/2021 DTL RNA, PCR, Nasopharynx 4:29 PM CDT Source SARS CoV-2 Undetected Undetected 12/07/2021 DTL RNA, PCR 4:29 PM CDT Comment: SARS-CoV-2 RNA absent. This result does not rule out COVID-19 in the patient, as the sensitivity of the test depends o n the timing of the specimen collection and quality of the specimen. Result should be correlated with patient's history and clinical presentat ion. ----ADDITIONAL INFORMATION---- This RT-PCR test has received Emergency Use Authorization (EUA) by the U.S. Food and Drug Administration an d is used per death clearance coordinator's instructions. Performance characteristics were verified by [facility] in a manner consistent with CLIA requirements. Visit the CDC website: https://www.cdc.g ov/coronavirus/ for the most recent guidelines on Coron avirus testing. Fact Sheet for Healthcare Providers: https://www.fda.gov/media/908714/downloa d Fact Sheet for Patients: https://www.fda.gov/media/812135/downloa d Specimen Anatomical Collection Method Collection Time Receive d Time (Source) Location / / Volume Laterality Varies 12/07/2021 11:30 12/07/2021 (Nasopharynx) AM CDT 12:27 PM CDT Darvin Corral M.D. LAB MICROBIOLOGY - GENERAL O KIMI Performing Organization Address City/State/ZIP Code Phon e Number [facility] - [address] [place], [place] [address] [facility] [place] [address] [facility] [address] documented in this encounter Visit Diagnoses Diagnosis Screening Examination For Viral Disease Contact With And (Suspected) Exposure To COVID-19 documented in this encounter Additional Health Concerns Infection Onset Date Last Indicated Resolved Time COVID19 Pending 12/07/2021 12/07/2021 12/07/2021 4:30 PM CDT Assessment Noted Time PHQ-9 Depression Total Score: 2 03/08/2015 11:16 AM CS T documented as of this encounter Care Teams Filter Tank Tender Helper Relationship Specialty Start Date End Date Silevr Givens M.D. PCP - General Family Medicine 11/10/19 12/09/[id number] [phone] documented as of this encounter
--- OUTSIDE RECORDS SUMMARY | 2021-12-17 09:45 | XMS_ITS | Encounter Summary ---
:1940 Author Organization [facility] Address [address] [place] [address] Care Team Providers Name Role Phone Elsewhere, Pcp Primary Care Provider Unavailable Encounter Details Date Type Department Care Team Description 12/10/2021 Hospital Division of Angella Costello Abnormal Stress Test; Encounter Cardiovascular Giulia Starr. 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); Diseases in [place], [facility] [address] [facility] Stress Test [facility] [address] [facility] [id number] [phone] Social History Tobacco Use Types Packs/Day Years Used Date Smoking Tobacco: Former Smokeless Tobacco: Never Alcohol Use Standard Drinks/Week Comments No 0 (1 standard drink = 0.6 oz pure alcoho l) Sex Assigned at Date Recorded Not on file documented as of this encounter Last Filed Vital Signs Vital Sign Reading Time Taken Comments Blood Pressure 117/53 12/10/2021 12:20 PM CDT Pulse 64 12/10/2021 12:40 PM CDT Temperature 36.8 ??C (98.2 ??F) 12/10/2021 9:09 AM CDT Respiratory Rate 13 12/10/2021 10:55 AM CDT Oxygen Saturation 95% 12/10/2021 12:40 PM CDT Inhaled Oxygen Concentration - - Weight 72.6 kg (160 lb 0.9 oz) 12/10/2021 9:17 AM CDT Height 168.5 cm (5' 6.34) 12/10/2021 9:09 AM CDT Body Mass Index 25.57 12/10/2021 9:09 AM CDT documented in this encounter Discharge Instructions AttachmentsThe following attachments cannot be sent through Care Everywhere.Care Following Your Catheter Procedure ([place])documented in this encounter Medications at Time of [...] instructions were reviewed in detail as per [id number] with patient and family. They verbalized understanding. [...] in Atherosclerotic the results Heart Disease section. 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 PROCEDURE TYPES 1. ??CORONARY ANGIOGRAPHY FINAL DIAGNOSIS 1. ??Mild coronary artery atherosclerosi s PRE-PROCEDURE DIAGNOSIS 1. ??Abnormal Stress Test 2. 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 midazolam (PF) injection 0.25 mg (VERSED ) [...] a respiratory rate less than 8 breaths/minute. ondansetron (PF) injection 4 mg (ZOFRAN) 4 [...] As needed, line care, Starting on M 12/10/21 at 0916, Preprocedure (CV), Prior to [...] As needed, line care, Starting on M 12/10/21 at 1008, Intraprocedure (CV), Prior to [...] mg (COMPLETED) 921 (Given - Provider: Tonya J Flaco, R.N.) 324 mg, oral, Once, On Fri12/10/21 [...] (CANCELED) 1015 (Given - Provider: Sakina Moy R.N.)1019 (Given - Provider: Sakina Moy R.N.) As [...] (CANCELED) 1022 (Given - Provider: Andrea Obrien, Ch.B.) As needed, Starting on Fri12/10/21 at 1022, [...] Starting on Fri12/10/21 at 1157, Postprocedure (CV)
If unable to give orally
documented in this encounter Additional Health Concerns Assessment Noted Time PHQ-9 Depression Total Score: 2 03/08/2015 11:16 AM CS T documented as of this encounter Care Teams [employer] Installer Relationship Specialty Start Date End Date Elsewhere, Pcp PCP - General Internal Medicine 12/10/21 documented as of this encounter
--- OUTSIDE RECORDS SUMMARY | 2021-12-17 09:45 | XMS_ITS | Clinical Summary ---
:1940 Author Organization [facility] Address [address] [place] [address] Care Team Providers Name Role Phone Elsewhere, Pcp Primary Care Provider Unavailable Source Comments Patient records contain information from all sites at [facility]. For routine questions regarding patient records, call [phone] during business hours, M-F 8:00 AM - 5:00 PM Central Time. Record requests for emergency care only can be directed to [phone] at any time.[facility] Allergies Active Allergy Reactions Severity Noted Date Comments Oxycodone Other (see comments) Low 08/13/2018 Confusi on Medications Medication Sig Dispensed Refills Start Date End Date Status ZETIA 10 mg tablet Take 10 mg by 0 01/08/2017 Active mouth daily. atorvastatin Take 80 mg by 0 01/27/2017 Ac tive (for_LIPITOR) 80 mg mouth daily. tablet metoprolol succinate Take 0.5 tablets 15 tablet 0 08/16/2018 Active (TOPROL-XL) 25 mg 24 hr (12.5 mg total) tablet by mouth daily. Additional Information Patient taking differently: 25 mg oral Daily, Other, Reported on 11/30/2021 aspirin-calcium Take 1 tablet 0 Active carbonate 81 mg-300 mg by mouth. calcium(777 mg) tablet pantoprazole (PROTONIX) Take 1 tablet 90 tablet 3 Active 40 mg EC tablet (40 mg total) 020 by mouth daily. isosorbide mononitrate Take 1 tablet 30 tablet 11 Active (IMDUR) 30 mg 24 hr (30 mg total) 022 023 tablet by mouth daily. nitroglycerin Place 1 tablet 100 tablet 1 Active (NITROSTAT) 0.4 mg SL (0.4 mg total) 022 tablet under the tongue every 5 (five) minutes as needed for chest pain. nitroglycerin Place 1 tablet 0 D iscontinued (for_NITROSTAT) 0.4 mg under the 017 022 (Reorder) SL tablet tongue every 5 (five) minutes as needed for chest pain. Active Problems Problem Noted Date Abnormal Stress Test 12/07/2021 Overview: Added automatically from request for mayte hardy [id number] Anemia Iron Deficiency Blood Loss Chronic 09/11/2020 Overview: Added automatically from request for mayte hardy [id number] Stool Positive Occult Blood 09/11/2020 Overview: Added automatically from request for mayte hardy [id number] Aftercare Total Shoulder Arthroplasty 01/25/2020 Primary Osteoarthritis Shoulder Left 12/20/2019 Overview: Added automatically from request for mayte hardy [id number] Hyperglycemia 12/14/2019 Gastroesophageal Reflux Disease Without Esophagitis Loss Hearing Bilateral 12/14/2019 Osteoporosis Without Pathological Fracture 11/27/2017 Peripheral Vascular Disease 07/02/[address]ros[address] Heart Disease Of [place] Coronary Arter y Without Angina 06/25/2016 Pectoris Overview: Coronary Artery Disease (CAD) 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 Coronary Artery With Other Forms Angina Pectoris (Stable Angina/Angina Of Exertion) ([facility]); Abnormal Stress Test Surgery Cardiovascular Disease Angella Costello Coron irvin Angiography 2 Marisela Starr Lab Laboratory Medicine Darvin Corral Examination For Viral Disease; 2 H, M.DLara Contact With An d (Suspected) Exposure To COVID-19 Office Visit Cardiovascular Disease Darvin Corral normal Stress Test (Primary Dx); 2 H, MLaraDLara Atherosclerotic Heart Disease [place] Coronary Artery With Other Forms Angina Pectoris (Stable Angina/Angina Of Exertion) ([facility]) Abstract Family Medicine Provider, 2 Historical Hospital Encounter Cardiovascular Disease Aj Mitchell Pain Chest; 2 R, P.A.-C., Atherosclerotic [facility] [place] Coronary Artery Without Angina Pectoris M.S. Clinical Cardiovascular Disease Beverage ServerLesley 2 Communication Marisela Kwon Orders Only Cardiovascular Disease Nic Mitchell Thai n Chest (Primary Dx); 2 R, P.A.-C., Atherosclerotic Heart [place] Coronary Artery Without Angina Pectoris M.S. Emergency Emergency Medicine Hamzah Hernández Abdomina l Pain (Primary Dx); 2 MMarisela Coronary Artery Disease With Stable Angina (HCC) Community Orders Loco, Pain Chest (Primary 2 Laila Soares, Dx) C.N.P. Orders Only Silver Givens 2 Marisela Clinical Otorhinolaryngology Fabien Gillette, 2 Communication Marisela from Last 3 Months Immunizations Name Administration Dates Next Due Influenza (IM) Preservative Free 03/03/2007 Influenza, Unspecified 03/24/2015 PCV13 01/09/2018 PPSV23 06/10/2006 Td (Adult), adsorbed 08/29/2003 Tdap 01/08/2012 influenza high dose (65 years or older) (PF) 07/05/2013 Family History Medical History Relation Name Comments Blindness Mother Cataracts Mother Glaucoma Mother Macular degeneration Mother Anesthesia problems Neg Hx Relation Name Status Comments Mother Social History Tobacco Use Types Packs/Day Years Used Date Smoking Tobacco: Former Smokeless Tobacco: Never Tobacco Cessation: Counseling Given: Not Answered Alcohol Use Standard Drinks/Week Comments No 0 [...] Mass Index 25.57 12/10/2021 9:09 AM CDT Plan of Treatment Health Maintenance Due Date Last Done Comments CT Colonography 1940 Cologuard 1940 Zoster Vaccines (1 of 2) 1991 Depression Screening (Annual 05/05/2021 PHQ-2) COVID-19 Vaccine (4 - Booster for 06/19/2021 02/16/2021, , Pfizer series) 06/30/2020 DTaP,Tdap,and Td Vaccines (2 - Td 01/07/2022 01/08/2012, or Tdap) Influenza Vaccine (#1) 2022 03/29/2020, 03/24/2015, 07/05/2013, Additional history exists Office Visit for Blood Pressure 03/09/2022 12/07/2021 Check / Re-check Fasting Glucose for Diabetes 11/30/2022 11/30/2021, 04/13/2 022, Screening 01/18/2020, Additional history exists Colonoscopy 09/29/2025 09/29/2020, 09/29/2020, 07/10/2016, Additional history exists Colorectal Cancer Surveillance 09/29/2025 Pneumococcal vaccine (65+ years) Completed 01/09/2018, 10/2006 Fall Risk Screen (Annual) Completed 12/10/2021 Medical Devices Implanted Type Area Check Weigher Device Shelf Model / Identifier Expiration Date Ser ial / Lot Xience Stent 3.5 X 18 - Figueroa [id number] Cardiac Ann Implanted: Qty: 1 on 12/19/2011 Stent Description: Device Check Weigher - Abbot t Vascular. Device Status Text - [id number]. Stnt Synergy Venkata Rx3x16 - [id number] Cardiac N/A: Maxwell 06/07/2020 [id number] / Implanted: Qty: 1 on 08/15/2018 by Jacques Barraza M.D. at [facility] Stent Coronary Scientific / [id number] Description: LAD Patch Hemasheild Knitted 1x3 - Figueroa [id number] Mesh or Patch Getin ge Group Implanted: Qty: 1 on 08/21/1999 Description: Device Check Weigher - [email or web address] Device Status Text - [id number]. Tencnis Iol Ocular Lens Right: Eye Ann 03/25/2021 [id number] 0 / Implanted: Qty: 1 on 07/07/2017 by Raymundo Kinney am, M.D. at [facility] [id number] / [id number] Ocular Lens Ann 02/24/2021 [id number] / Implanted: Qty: 1 on 07/21/2017 by Raymundo Kinney am, M.D. at [facility] [id number] / Shoulder Implant-03/23/2015 Shoulder Right: Implanted: 03/23/2015 by Marv Dodson M.D. (Quantity no t on file) Implant Shoulder Shldr Lnr Trb Rvrs +0x36 - Sna - [id number] Shoulder Left: Lisa [id number] 04/03/2026 [id number] / Implanted: Qty: 1 on 01/25/2020 by Marv Roman M.D. at [facility] Implant Shoulder Biomet NA / [id number] Procedures Procedure Name Priority Date/Time Associated Comments Diagnosis CARDIAC Routine 12/10/2021 Abnormal Stress Results for CATHETERIZATION 10:59 AM CDT Test this procedure Atherosclerotic are in the Heart Disease results [place] Coronary section. Artery With Other Forms Angina Pectoris (Stable Angina/Angina Of Exertion) (HCC) ADULT OXYGEN THERAPY Routine 12/10/2021 10:08 AM CDT SARS COV-2 RNA, PCR, Routine 12/07/2021 Screening Results for VARIES 11:30 AM CDT Examination For this procedu re Viral Disease are in the Contact With And results (Suspected) section. Exposure To COVID-19 ECHO STRESS 2D WITH Routine 12/05/2021 1:49 Pain Chest Results for COLOR, LIMITED DOPPLER PM CDT Atherosclerotic th is procedure AND CONTRAST Heart Disease Of are in the [place] Coronary results Artery Without section. Angina Pectoris SARS COV-2 RNA, PCR, Routine 12/04/2021 Screening Results for VARIES 11:17 AM CDT Examination For this procedu re Viral Disease are in the results section. TROPONIN T, 2H/6H, 5TH Timed 11/30/2021 4:30 Re sults for GEN, P PM CDT this procedure are in the results section. DX CHEST AP OR PA AND RAD - Semiurgent 11/30/2021 3:03 Results for LATERAL 2 VIEWS (Fast; most ED PM CDT this proce dure patients; some are in the inpatients) results section. TROPONIN T, BASELINE, STAT 11/30/2021 2:38 Res ults for 5TH GEN, P PM CDT this procedure are in the results section. PROTHROMBIN TIME (PT), STAT 11/30/2021 2:38 Re sults for P PM CDT this procedure are in the results section. NT-PRO B-TYPE STAT 11/30/2021 2:38 Results for NATRIURETIC PEPTIDE PM CDT this pro cedure (BNP), S are in the results section. LIPASE, S/P STAT 11/30/2021 2:38 Results for PM CDT this procedure are in the results section. HEPATIC FUNCTION STAT 11/30/2021 2:38 Results for PANEL, S PM CDT this procedure are in the results section. CBC WITH DIFFERENTIAL, STAT 11/30/2021 2:38 Re sults for B PM CDT this procedure are in the results section. BASIC METABOLIC PANEL, STAT 11/30/2021 2:38 Re sults for S/P PM CDT this procedure are in the results section. ECG STAT 11/30/2021 2:09 Results for PM CDT this procedure are in the results section. OUTSIDE DX CHEST Routine 11/29/2021 3:05 Results for PM CDT this procedure are in the results section. from Last 3 Months Results CORONARY ANGIOGRAPHY (12/10/2021 10:59 AM CDT) [...] Angina Pectoris (Stable Angina/Angina Of Exertion) (HCC) CORONARY DIAGNOSTIC SUMMARY Coronary artery dominance is [...] Darvin Corral M.D. CV CARDIAC CATH PROCEDURES SARS CoV-2 RNA, PCR, Varies Asymptomatic (12/07/2021 11:30 AM CDT)Only the most recent of2 resultswithin the time period is included. [facility] Method Time Signature SARS CoV-2 Swab, 12/07/2021 [...] Drug Administration an d is used per videotape sales representative's instructions. Performance characteristics were verified by [facility] in a manner consistent with CLIA requirements. Visit the CDC website: https://www.cdc.g ov/coronavirus/ for the most recent guidelines on Coron avirus testing. Fact Sheet for Healthcare Providers: https://www.fda.gov/media/782761/downloa d Fact Sheet for Patients: https://www.fda.gov/media/861724/downloa d Specimen Anatomical Collection Method Collection Time Receive d Time (Source) Location / / Volume Laterality Varies 12/07/2021 11:30 12/07/2021 (Nasopharynx) AM CDT 12:27 PM CDT Darvin Corral M.D. LAB MICROBIOLOGY - GENERAL O RDERABLES Performing Organization Address City/State/ZIP Code Phon e Number [facility] - [address] [place] [address] [phone] [facility] [place] [address] [facility] [place] [facility] ECHO STRESS 2D WITH COLOR, LIMITED DOPPLER AND CONTRAST (12/05/2021 1:49 PM CDT) [facility] [place] Method Time Signature Ejection Fraction 60 MC [...] visualized adequately to evaluate cardiac structure. The pa tient's current allergies and medication s have been screened. Intravenous Lumason ultrasound enhancement agent(s) administered to enhance endocardial border definition. Imaging enhancement agent administered per Echocardiography Contrast Administration P rotocol Reference Document [id number]. P atient met an inclusion criterion and did not have contraindications in screening sections. For the complete report, see the [facility] [place] Documents. Narrative 12/05/2021 3:16 PM CDT For [...] For the complete report, see the [facility] [place] Documents. Final Impressions 1. Exercise echocardiogram positive [...] per Echocardiography Contrast Administration Protocol Reference Document [id number]. Patient met an inclusion criterion and did not have contraindications in screening sections. For the complete report, see the Order-L evel Documents. Nic Mitchell P.A.-C. M.S. CV ECHO PROCEDURES Troponin T, 2H/6H, 5th Gen (11/30/2021 4:30 PM CDT) [facility] Method Time Signature Troponin T, 2 12 <=15 ng/L 11/30/2021 [facility] hr, 5th gen 4:56 PM CDT 2H Delta 0 ng/L 11/30/2021 [facility] 4:56 PM CDT 2H Delta Not Changing 11/30/2021 [facility] Interp 4:56 PM CDT Troponin T, 6 CANCELED ng/L 11/30/2021 [facility] hr, 5th gen 4:56 PM CDT Comment: Result canceled by the jessica Martinez Anatomical Collection Method Collection Time Receive d Time (Source) Location / / Volume Laterality Blood (Blood, 11/30/2021 4:30 PM 12/01/19 22 4:33 Venous) CDT PM CDT Narrative [facility] - 11/30/2021 4:56 PM CDT Specimen Information: Specimen ID: [id number] Specimen Type: Blood Specimen Collection Start Date: 12/01/19 22 ??4:30 PM Specimen Received Date: 11/30/2021 ??4:3 3 PM Specimen ID: [id number] Specimen Type: Blood Specimen Collection Start Date: 12/01/19 22 ??4:56 PM Specimen Received Date: 11/30/2021 ??4:5 6 PM Hamzah Hernádnez M.D. LAB BLOOD TROPONIN Performing Organization Address City/State/ZIP Code Phon e Number [facility] - [address] [place], [place] [address] [facility] [place] [address] Laboratories-[facility] [place] [address] DX Chest AP or PA and Lateral 2 Views (11/30/2021 3:03 PM CDT) Anatomical Region Laterality Modality Chest, Thoracic RST LOS, Thoracic ARZ LOS, Thoracic N/A Digital Radiography FLA LOS Specimen (Source) Anatomical Collection Method Collection Time Re ceived Time Location / / Volume Laterality 11/30/2021 3:13 PM CDT Impressions 11/30/2021 3:15 PM CDT No significant change since outside radiographs from yesterday. No focal pulmonary consolidation or pleural effusion. Brooklynn l size of the cardiac silhouette. Coronary artery stenting. Old left rib fracture. Bilateral shoulde r arthroplasties. Narrative 11/30/2021 3:15 PM CDT EXAM: ??DX CHEST AP OR PA AND LATERAL 2 VIEWS Procedure Note Magan Cook M.D., Ph.D. - 2 EXAM: DX CHEST AP OR PA AND LATERAL 2 EWS IMPRESSION: No significant change since outside radi ographs from yesterday. No focal pulmonary consolidation or pleural effusion. Brooklynn l size of the cardiac silhouette. Coronary artery stenting. Old left rib fracture. Bilateral shoulde r arthroplasties. Hamzah Hernández M.D. IMG DIAGNOSTIC IMAGING PROCE [facility] Troponin T, Baseline, 5th gen (11/30/2021 2:38 PM CDT) P athologist Signature Troponin T, 12 <=15 ng/L 11/30/2021 [facility] Baseline, 5th 3:06 PM CDT gen Specimen Anatomical Collection Method Collection Time Receive d Time (Source) Location / / Volume Laterality Blood (Blood, 11/30/2021 2:38 PM 12/01/19 22 2:44 Venous) CDT PM CDT Hamzah Hernández M.D. LAB BLOOD TROPONIN Performing Organization Address City/[facility] Phon e Number [facility] - [address] (ABNORMAL) Hepatic Function Panel (11/30/2021 2:38 PM CDT) Patholo gist Method Time Signature Bilirubin, Total, S 1.3 (H) <=1.2 11/30/2021 [facility] mg/dL 3:38 PM CDT Bilirubin, Direct, S 0.3 0.0 - 0.3 11/30/2021 [facility] mg/dL 3:38 PM CDT Aspartate 37 8 - 48 11/30/2021 [facility] Aminotransferase U/L 3:38 PM CDT (AST), S Alanine 40 7 - 55 11/30/2021 [facility] Aminotransferase U/L 3:38 PM CDT (ALT), S Alkaline 248 (H) 40 - 129 11/30/2021 [facility] Phosphatase, S U/L 3:38 PM CDT Albumin, S 4.6 3.5 - 5.0 11/30/2021 [facility] g/dL 3:38 PM CDT Protein, Total, S 6.8 6.3 - 7.9 11/30/2021 [facility] g/dL 3:38 PM CDT Specimen Anatomical Collection Method Collection Time Receive d Time (Source) Location / / Volume Laterality Blood (Blood, 11/30/2021 2:38 PM 12/01/19 3:09 Venous) CDT PM CDT Hamzah Hernández M.D. LAB BLOOD ADD-ON Performing Organization Address City/[facility] Code Phon e Number [facility] - [address] [place], [place] [address] [place] [address] NT-Pro B-Type Natriuretic Peptide (BNP) (11/30/2021 2:38 PM CDT) P athologist Signature NT-Pro BNP 227 <=540 pg/mL 11/30/2021 [facility] 3:08 PM CDT Comment: NT-proBNP values less than 300 pg/mL hav e a 99% negative predictive value for excluding acute con gestive heart failure. A cutoff of 1200 pg/mL for lino ents with an eGFR<60 yields a diagnostic sensitivity and spec ificity of 89% and 72% for acute congestive heart failure. A diagnostic NT-proBNP cutoff of 1800 pg/mL has been suggested in adults over 75 years of age in the absence of r enal failure. Specimen Anatomical Collection Method Collection Time Receive d Time (Source) Location / / Volume Laterality Blood (Blood, 11/30/2021 2:38 PM 12/01/19 2:44 Venous) CDT PM CDT Hamzah Hernández M.D. LAB BLOOD ADD-ON Performing Organization Address [facility] Phon e Number [address] Prothrombin Time (PT) (11/30/2021 2:38 PM CDT) P athologist Signature Prothrombin 12.5 9.4 - 12.5 11/30/2021 [facility] Time, P sec 2:53 PM CDT INR 1.1 0.9 - 1.1 11/30/2021 [facility] 2:53 PM CDT Comment: ----ADDITIONAL INFORMATION---- Standard intensity warfarin therapeutic range: 2.0 to 3.0 ?? High intensity warfarin therapeutic rang e: 2.5 to 3.5 Specimen Anatomical Collection Method Collection Time Receive d Time (Source) Location / / Volume Laterality Blood (Blood, 11/30/2021 2:38 PM 12/01/19 2:44 Venous) CDT PM CDT Hamzah Hernández M.D. LAB BLOOD ADD-ON Performing Organization Address [facility] Phon e Number [facility] - [address] [place] [address] (ABNORMAL) CBC with Differential, Blood (11/30/2021 2:38 PM CDT) Patholo gist Method Time Signature Hemoglobin 13.1 (L) 13.2 - 11/30/2021 [facility] 16.6 g/dL 2:48 PM CDT Hematocrit 40.8 38.3 - 11/30/2021 [facility] 48.6 % 2:48 PM CDT Erythrocytes 4.79 4.35 - 11/30/2021 [facility] 5.65 2:48 PM CDT x10(12)/L MCV 85.2 78.2 - 11/30/2021 [facility] 97.9 fL 2:48 PM CDT RBC Distrib Width 15.7 (H) 11.8 - 11/30/2021 [facility] 14.5 % 2:48 PM CDT Platelet Count 246 135 - 317 11/30/2021 [facility] x10(9)/L 2:48 PM CDT Leukocytes 7.5 3.4 - 9.6 11/30/2021 [facility] x10(9)/L 2:48 PM CDT Neutrophils 4.92 1.56 - 11/30/2021 [facility] 6.45 2:48 PM CDT x10(9)/L Lymphocytes 1.66 0.95 - 11/30/2021 [facility] 3.07 2:48 PM CDT x10(9)/L Monocytes 0.55 0.26 - 11/30/2021 [facility] 0.81 2:48 PM CDT x10(9)/L Eosinophils 0.32 0.03 - 11/30/2021 [facility] 0.48 2:48 PM CDT x10(9)/L Basophils 0.03 0.01 - 11/30/2021 [facility] 0.08 2:48 PM CDT x10(9)/L Specimen Anatomical Collection Method Collection Time Receive d Time (Source) Location / / Volume Laterality Blood (Blood, 11/30/2021 2:38 PM 12/01/19 22 2:44 Venous) CDT PM CDT Hamzah Hernández M.D. LAB BLOOD ADD-ON Performing Organization Address City/State/ZIP Code Phon e Number [facility] - [address] [place], [place] [address] [place] [address] Laboratories[facility] [place] [address] Lipase (11/30/2021 2:38 PM CDT) athologist Signature Lipase, S 32 13 - 60 U/L 11/30/2021 3:38 D[facility] PM CDT Specimen Anatomical Collection Method Collection Time Receive d Time (Source) Location / / Volume Laterality Blood (Blood, 11/30/2021 2:38 PM 12/01/19 3:09 Venous) CDT PM CDT Hamzah Hernández M.D. LAB BLOOD ADD-ON Performing Organization Address City/State/ZIP Code Phon e Number [facility] - [address] [place], [place] [address] [facility] [place] [address] Laboratories[facility] [place] [address] [facility] Basic Metabolic Panel (11/30/2021 2:38 PM CDT) P athologist Signature Potassium, P 3.8 3.6 - 5.2 11/30/2021 [facility] mmol/L 3:02 PM CDT Sodium, P 144 135 - 145 11/30/2021 [facility] mmol/L 3:02 PM CDT Chloride, P 104 98 - 107 11/30/2021 [facility] mmol/L 3:02 PM CDT Bicarbonate, P 26 22 - 29 11/30/2021 [facility] mmol/L 3:02 PM CDT Anion Gap, P 14 7 - 15 11/30/2021 [facility] 3:02 PM CDT BUN (Blood Urea 8 8 - 24 11/30/2021 [facility] Nitrogen), P mg/dL 3:02 PM CDT Creatinine, P 1.13 0.74 - 1.35 11/30/2021 [facility] mg/dL 3:02 PM CDT eGFR-Black/Afri 71 >=60 11/30/2021 [facility] can Egyptian mL/min/BSA 3:02 PM CDT Comment: ----ADDITIONAL INFORMATION---- Estimated GFR calculated using the 2009 CKD_EPI creatinine equation. eGFR Non-Black/ 61 >=60 mL/min/BSA 3:02 PM CDT [facility] Comment: ----ADDITIONAL INFORMATION---- Estimated GFR calculated using the 2009 CKD_EPI creatinine equation. Calcium, Total, P 8.9 8.8 - 10.2 mg/dL 11/30/2021 3:02 PM CDT [facility] Glucose, P 97 70 - 140 mg/dL 11/30/2021 3:02 PM CDT S [facility]MA Specimen Anatomical Collection Method Collection Time Receive d Time (Source) Location / / Volume Laterality Blood (Blood, 11/30/2021 2:38 PM 12/01/19 22 2:44 Venous) CDT PM CDT Hamzah Hernández M.D. LAB BLOOD ADD-ON Performing Organization Address City/[facility]/ZIP Code Phon e Number [facility] - [address] [place], [place] [address] [facility] [place] [address] Laboratories[facility] [place] [address] ECG 12 Lead (11/30/2021 2:09 PM CDT) P athologist Signature Ventricular Rate 54 BPM MUSE ECG/Min AL Interval 178 ms MUSE QRSD Interval 84 ms MUSE QT Interval 444 ms MUSE QTC Interval 421 ms MUSE P Cameron 54 degrees MUSE R Cameron 2 degrees MUSE T Wave Cameron 30 degrees MUSE Specimen Anatomical Collection Method Collection Time Receive d Time (Source) Location / / Volume Laterality 11/30/2021 2:09 PM 2:18 CDT PM CDT Impressions MUSE - 11/30/2021 2:18 PM CDT Sinus bradycardia with sinus arrhythmia Premature ventricular complexes Otherwise normal ECG When compared with ECG of 18-JAN-2020 12 :07, No significant change was found Reviewed by DARRELL Little Narrative This result has an attachment that is no t available. Procedure Note Matty Harrison M.D., Ph.D. - 12/01/19 22 IMPRESSION: Sinus bradycardia with sinus arrhythmia Premature ventricular complexes Otherwise normal ECG When compared with ECG of 18-JAN-2020 12 :07, No significant change was found Reviewed by DARRELL Little Hamzah Hernández M.D. ECG ORDERABLES Performing Organization Address City/[facility]/ZIP Code Phon e Number MUSE MUSE NA XR CHEST 2V-Outside Chest Xray (11/29/2021 3:05 PM CDT) Specimen (Source) Anatomical Location Collection Method / Collectio n Time Received Time / Laterality Volume Narrative [facility] - 11/30/2021 10:36 AM CDT This order has been created and auto-finalized to support the import of outside images. If available, original i nterpretation can be found on the Media Tab in Chart Review, in Document V iewer, or as an image in QREADS. If a re-interpretation or overread is re quired please follow defined workflow. ?? Provider Not In System IMG DIAGNOSTIC IMAGING PROCE [facility] Performing Organization Address City/State/ZIP Code Phon e Number [facility] IIMS NA from Last 3 Months Insurance Payer Benefit Plan Subscriber ID Effective Phone Address Typ e / Group Dates MEDICARE MEDICARE A [id number] 2006-Pres [address] [place] [address] BLUE CROSS BCBS ASA'CARSARMIUT [id number] 2016-Pres [phone] PO LIZBET X Cost Share BLUE SHIELD BLUE COST ent [phone] [place] [address] St (Home) YARIEL Amaya [phone] Advance Directives For more information, please contact: [phone] Documents on File Type Date Recorded Patient Terrazzo Journeyman Explanati on Advance Directives 12/05/2021 Neetu Noblesolleen HCPOA/A DVOCATE/AGENT/REP Calderon Vines RESENTATIVE /SURROGATE Latest Code Status on File Code Status Date Activated Date Inactivated Comments Full Code 09/29/2020 11:34 AM 09/29/2020 1:44 PM Full Code: Discussed Full Code 01/25/2020 4:32 PM 01/26/2020 1:09 PM Full Code: Discussed Full Code 08/15/2018 2:26 AM 08/16/2018 1:25 PM Full Code: Discussed Full Code 07/21/2017 9:32 AM 07/21/2017 11:44 AM Full Code: Discussed Full Code 07/07/2017 8:50 AM 07/07/2017 1:56 PM Full Code: Discussed Healthcare Agents on File Name Relationship Healthcare Agent Communication Relationship Neetu Vines Spouse Health Care Agent Ginette Dodson Daughter [facility] Health Care Agent Jesus Vines Son First [facility] Agent Care Teams Curriculum Development Coordinator Relationship Specialty Start Date End Date Elsewhere, Pcp PCP - General Internal Medicine 12/10/21
--- OUTSIDE RECORDS SUMMARY | 2021-12-17 09:45 | XMS_ITS | Encounter Summary ---
:1940 Author Organization [facility] Address [address] [place] [address] Care Team Providers Name Role Phone Silver Givens M.D. 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 Procedures Echo Stress M.S. 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 Procedures Echo Stress M.S. [address] [place] [address] Referral ID Status Reason Start Date Expiration Date Visits Requ ested Visits Authorized [id number] Closed 12/03/2021 12/03/2022 1 1 Encounter Details Date Type Department Care Team Description 12/05/2021 Hospital Department of [place], Pain Chest; Encounter Cardiovascular Nic RRyan ic Heart Disease Of [place] Coronary Artery Without Angina Pectoris Diseases in Laura Yung, M.S. [place] [address] [place] [phone] Social History Tobacco Use Types Packs/Day Years Used Date Smoking Tobacco: Former Smokeless Tobacco: Never Alcohol Use Standard Drinks/Week Comments No 0 (1 standard drink = 0.6 oz pure alcoho l) Sex Assigned at Date Recorded Not on file documented as of this encounter Medications at Time of Discharge [...] (12.5 mg total) by tablet mouth daily. nitroglycerin (NITROSTAT) Place 1 tablet (0.4 100 tablet 1 0 11/30/2021 0.4 mg SL tablet mg total) under the tongue every 5 (five) minutes as needed for chest pain. pantoprazole (PROTONIX) Take 1 tablet (40 90 tablet 3 03/07 40 mg EC tablet mg total) by mouth daily. ZETIA 10 mg tablet Take 10 mg by mouth 0 01/09/20 17 daily. documented as of this encounter Plan of Treatment Not on filedocumented as of this encounter Procedures Procedure Name Priority Date/Time Associated Diagnosis Comme nts ECHO STRESS 2D WITH Routine 12/05/2021 1:49 PM Pain Ches t Results for this COLOR, LIMITED CDT Atherosclerotic procedure are in DOPPLER AND Heart Disease Of the results CONTRAST [place] Coronary section. Artery Without Angina Pectoris documented in this encounter Results ECHO STRESS 2D WITH COLOR, LIMITED DOPPLER AND CONTRAST (12/05/2021 1:49 PM CDT) [facility] gist Method Time Signature Ejection Fraction 60 [...] adequately to evaluate cardiac structure. The pa yoel's current allergies and medication s have been screened. Intravenous Lumason ultrasound enhancement agent(s) administered to enhance endocardial border definition. Imaging enhancement agent administered per Echocardiography Contrast Administration P rotocol Reference Document [id number]. P atient met an inclusion criterion and [...] per Echocardiography Contrast Administration Protocol Reference Document [id number]. Patient met an inclusion criterion and did not have contraindications in screening sections. For the complete report, see the Order-L evel Documents. Nic Mitchell P.A.-C. M.S. 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 documented in this encounter Administered Medications Inactive Administered Medications - up to 3 most recent administrations Medication Order MAR Action Action Date Dose Rate Site sodium chloride 0.9 % injection 10 Given 12/05/2021 2:10 PM CDT 10 mL mL 10 mL, intravenous, As needed, line care, Starting on 12/05/21 at 1407, Prior to and following infusion and between multiple consecutive infusions: sodium chloride 0.9 % injection sulfur hexafluoride microspheres injection Given 12/05/2021 2:10 PM CDT 3 mL (LUMASON) intravenous, As needed, contrast, Starting on 12/05/21 at 1407, Intraprocedure - Diagnostic, See protocol. Reconstitute each 25 mg vial with 5 mL NS. documented in this encounter Additional Health Concerns Assessment Noted Time PHQ-9 Depression Total Score: 2 03/08/2015 11:16 AM CS T documented as of this encounter Care Teams Police Dispatcher Relationship Specialty Start Date End Date Silver Givens M.D. PCP - General Family Medicine 11/10/19 12/09/[id number] [place] [phone] documented as of this encounter
--- OUTSIDE RECORDS SUMMARY | 2021-12-17 09:45 | XMS_ITS | Encounter Summary ---
:1940 Author Organization [facility] Address [address] [place] [address] Care Team Providers Name Role Phone Silver Givens M.D. Primary Care Provider Encounter Details Date Type Department Care Team Description 12/07/2021 Abstract [facility] Provider, Historical Social History Tobacco Use Types Packs/Day Years [...] filedocumented in this encounter Additional Health Concerns Infection Onset Date Last Indicated Resolved Time COVID19 Pending 12/07/2021 12/07/2021 12/07/2021 4:30 PM CDT Assessment Noted Time PHQ-9 Depression Total Score: 2 03/08/2015 11:16 AM CS T documented as of this encounter Care Teams Staffing Specialist Relationship Specialty Start Date End Date Silver Givens M.D. PCP - General Family Medicine 11/10/19 12/09/[id number] [place] [phone] documented as of this encounter
--- OUTSIDE RECORDS SUMMARY | 2021-12-17 09:46 | XMS_ITS | Encounter Summary ---
:1940 Author Organization [facility] Address [address] [place] [address] Care Team Providers Name Role Phone Silver Givens M.D. Primary Care Provider Encounter Details Date Type Department Care Team Description 09/29/2020 Ancillary Procedure Department of Gastroenterology Social History Tobacco Use Types Packs/Day Years Used Date Smoking Tobacco: Former Smokeless Tobacco: Never Alcohol Use Standard Drinks/Week Comments No 0 (1 standard drink = 0.6 oz pure alcoho l) Sex Assigned at Date Recorded Not on file documented as of this encounter Plan of Treatment Not on filedocumented as of this encounter Procedures Procedure Name Priority Date/Time Associated Comments Diagnosis GASTROENTEROLOGY IMAGE Routine 09/29/2020 10:15 R esults for this EXAM AM CDT procedure are i n the results section. documented in this encounter Results Stomach, Gastric body Upper GI endoscopy-Gastroenterology Image Exam (09/29/2020 10:15 AM CDT) Specimen (Source) Anatomical Collection Method Collection Time Re ceived Time Location / / Volume Laterality 09/29/2020 10:14 AM CDT Narrative [facility] - 09/29/2020 11:09 AM CDT This order has been created and auto-finalized to support the import of images acquired without order. The clini alexa documentation to support these images can be found on the encounter nereyda t produced images. Provider Not In System IMG NON RAD IMAGING PROCEDUR ES Performing Organization Address City/State/ZIP Code Phon e Number [facility] NA documented in this encounter Visit Diagnoses Not on filedocumented in this encounter Additional Health Concerns Assessment Noted Time PHQ-9 Depression Total Score: 2 03/08/2015 11:16 AM JENNA T documented as of this encounter Care Teams Sewage Plant Attendant Relationship Specialty Start Date End Date Silver Givens M.D. PCP - General Family Medicine 11/10/19 12/09/[address] [place] [phone] documented as of this encounter
--- OUTSIDE RECORDS SUMMARY | 2021-12-17 09:46 | XMS_ITS | Encounter Summary ---
:1940 Author Organization [facility] Address [address] [place] [address] Care Team Providers Name Role Phone Silver Givens M.D. Primary Care Provider Reason for Visit Reason Comments Communication 3 month endoscopy call, susanna salmeron Encounter Details Date Type Department Care Team Description 09/12/2020 Clinical Department of Carmen Mcdonald (3 Communication General Surgery in A, L.P.N. month endoscopy call, [place], [address] [place] [address]) [address] [phone] Social History Tobacco Use Types Packs/Day Years Used Date Smoking Tobacco: Former Smokeless Tobacco: Never Alcohol Use Standard Drinks/Week Comments No 0 (1 standard drink = 0.6 oz pure alcoho l) Sex Assigned at Date Recorded Not on file documented as of this encounter Miscellaneous Notes Telephone Encounter - Muriel Armstrong - 09/13/2020 3:38 PM CDT Appt Scheduled for 09/25/20. Telephone Encounter - Muriel Armstrong - 09/12/2020 2:57 PM CDT 1st Attempt/LVM, 09/12/20. Telephone Encounter - Carmen Mcdonald L.P.N. - 09/12/2020 1:41 PM CDT Upper Endoscopy: No Upper Endoscopy with Pride: No If yes, proton pump inhibitor needs to be held for 5 days prior to scope Lower Endoscopy: No Upper and Lower Endoscopy: Yes Ordering Provider: Dr Woodward Indication for procedure: Anemia, unspecified type (D64.9) Gualac positive stools (R19.[address] [facility], pre-op appointment scheduled: No Pre-Endoscopy Education done: Yes Instructions were mailed to patient. Yes Script for prep was sent to pharmacy by provider: Yes If patient answered no, ordering provider was notified to send script No Do you have a history of chronic constipation or a previous incomplete prep: No If yes, contact ordering provider: No Do you have an implanted cardiac device? No Instructed to bring card day of procedure: No Are you taking any blood thinners: Yes Aspirin Warfarin (Coumadin) Apixiban (Eliquis) Dabagatran etexilate (Pradaxa) Rivaroxaban (Xarelto) Enoxaparin (Lovenox) Fondaparinux (Arixtra) Clopidogrel (Plavix)- hold 5 days prior Ticagrelor (Brillinta) Prasugrel (Effient) Other: Who manages anticoagulation:Dr Woodward Provider contacted: No Are you diabetic: No If yes, do they use insulin or oral hypoglycemic medication: No Who manages diabetic medications: Provider contacted for instructions: No Patient verbalizes understanding of education provided and number to call if questions arise: Yes COVID Screening Questions Does the patient, anyone in the household, or anyone that they have had prolonged exposure with for the past 5 days have any of the followin. Fever greater than or equal to 37.7 C (100.0 F) in the last 24 hours? No 2. Symptoms: Cough: No Shortness of breath: No Sore throat: No Diarrhea: No Vomiting: No Respiratory distress: No Headache: No Chills: No Myalgias: No Repeated shaking with chills: No Loss of smell: No Change or loss of taste sensation: No 3. Does the patient or visitor have close contact with a person under quarantine or isolation, or wisam LABORATORY CONFIRMED case of COVID-19? Close contact defined as being within 6 feet of a COVID-19 patient for more than 5 minutes or having direct contact with infectious secretions of a COVID-19 case? (ie being coughed on) No 4. Has the patient been tested for COVID-19 with a positive or pending result due to symptoms ? No If yes to any of these questions, patient is considered interview positive and should be referred tothe COVID Nurse Line (Phone number ) and this information communicated to clinical team responsible for the operation. Sent to COVID Nurse Triage No 5. Have you received the COVID-19 vaccine in the last 5 days? No Avoid scheduling elective surgery within five days of receiving the COVID-19 vaccination to minimizequestion of common side effects of the vaccine. 6. Are you scheduled to receive a COVID-19 vaccine in the future? No If yes, when are you scheduled: Avoid scheduling elective surgery at a time where recovery duration may interfere with receiving thesecond vaccination (with a four-day leonie period). Completed vaccine Patient was instructed to call department if they develop any of the above symptoms prior to the procedure or surgery date. Yes Patient verbalized back understanding of the PCR swab plan and when to complete and at which site. Yes Procedure date 09-29-2020 , covid testing 3-7 days prior at [address] [place] [address] documented in this encounter Plan of Treatment Not on filedocumented as of this encounter Results SARS Coronavirus-2 RNA, V Asymptomatic (09/25/2020 8:31 AM CDT) [facility] Method Time Signature SARS-CoV-2 Swab, 09/25/2020 [facility] Specimen Nasopharynx 8:19 PM CDT Source SARS CoV-2 Undetected Undetected 09/25/2020 E[facility] RNA, TMA 8:19 PM CDT Comment: SARS-CoV-2 RNA absent. This result does not rule out COVID-19 in the patient, as the sensitivity of the test depends o n the timing of the specimen collection and the quality of the specim en. Result should be correlated with patient's history and clinical presentat ion. ----ADDITIONAL INFORMATION---- This molecular amplification test was pe rformed using the Aptima SARS-CoV-2 assay ([employer] on the [employer] tem under emergency use authorization (EUA) by the U.S. Food and Drug Administ ration. Fact sheets for this EUA assay can be fo und at the following links: For Healthcare Providers: https://www.[employer] a.gov/media/304602/download For Patients: https://www.fda.gov/media/ 599112/download Specimen Anatomical Collection Method Collection Time Receive d Time (Source) Location / / Volume Laterality Varies 09/25/2020 8:31 AM 2:56 (Nasopharynx) CDT PM CDT Wood Car M.D. LAB MICROBIOLOGY - GENERAL O RDERABLES Performing Organization Address City/State/[facility] Phon e Number [facility]- [address] [place] [address] [place] [address] [place] [address] System in [address] documented in this encounter Visit Diagnoses Diagnosis Anemia Iron Deficiency Blood Loss Chroni c - Primary documented in this encounter Additional Health Concerns Assessment Noted Time PHQ-9 Depression Total Score: 2 03/08/2015 11:16 AM CS T documented as of this encounter Care Teams Supervisor Car Installations Relationship Specialty Start Date End Date Silver Givens M.D. PCP - General Family Medicine 11/10/19 12/09/[address] [place] [phone] documented as of this encounter
--- OUTSIDE RECORDS SUMMARY | 2021-12-17 09:46 | XMS_ITS | Encounter Summary ---
:1940 Author Organization [facility] Address [address] [place] [address] Care Team Providers Name Role Phone Silver Givens M.D. Primary Care Provider Reason for Visit Physical Therapy (Routine) - Canceled Specialty Diagnoses / Procedures Referred By Contact Refer red To Contact Diagnoses Aftercare Total Shoulder Arthroplasty Laine Day, P.A.-C. [facility] Procedures PT Ongoing treatment [address] [facility] [place] [phone] Referral ID Status Reason Start Date Expiration Date Visits V isits Requested Authorized [id number] Canceled 02/07/2020 02/06/2021 99 99 Encounter Details Date Type Department Care Team Description 04/05/2020 Clinical Support Department of Laine Day, P.A.-C. [address] [facility] [place] [phone] Aftercare Total Rehabilitation Arti Lundberg P.TLara [address] [place] [phone] Shoulder Services in [address] [phone] Social History Tobacco Use Types Packs/Day Years Used Date Smoking Tobacco: Former Smokeless Tobacco: Never Alcohol Use Standard Drinks/Week Comments No 0 (1 standard drink = 0.6 oz pure alcoho l) Sex Assigned at Date Recorded Not on file documented as of this encounter Progress Notes Arti Lundberg P.T. - 04/05/2020 8:30 AM CST Physical Therapy Outpatient Treatment Note SUBJECTIVE Patient's Name: Obey Vines Referring Provider: Laine Day P.A.-C. Visit Diagnosis: 1. 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 OBJECTIVE Pain: Soreness noted at available end ranges. PROM for left shoulder flexion and elevation 140 degrees, ER 30 degrees. TREATMENT Treatment today consisted of: Performed PROM to the left shoulder for flexion, elevation and ER. Initiated AROM in supine shoulderflexion and elevation x 10 reps each. Progressed to an orange TB for left shoulder IR and ER x 10 reps. Home Exercise Program/Education: Progress to supine AROM for flexion/elevation and TB strengthening for IR/ER working up to 3 x 10 reps. Pulleys will continue for ROM> Pt reports good compliance with his HEP. Contact monitoring: PPE used during therapy: Therapist was wearing the following PPE throughout entire session: surgicalmask and eye protection Patient was wearing a mask during therapy session: yes Additional Staff Present During Session: no Assessment Clinical Impression: Tolerated session well. Improving ROM. Patient continues to demonstrate weakness. Functional Goals and Timeframes: PT Goal #1: Patient will restore full passive range of motion. PT Goal #1 Date: 05/04/20 PT Goal #2: Patient will demonstrate active shoulder flexion to 150?? without compensation. PT Goal #2 Date: 05/04/20 PT Goal #3: Patient will be able to activate all components with deltoid and periscapular muscles. PT Goal #3 Date: 05/04/20 Plan Plan for next session: AROM and strengthening. Time Spent with Patient Therapeutic Exercise (min): 20 min Time Calculation Total Timed Units (min): 20 min Total Treatment Time (min): 20 min Arti Lundberg P.T. Department of Rehabilitation Services in [address] [phone] Dept: [phone] LL SAW OPERATOR documented in this encounter Plan of Treatment Not on filedocumented as of this encounter Visit Diagnoses Diagnosis Aftercare Total Shoulder Arthroplasty documented in this encounter Additional Health Concerns Assessment Noted Time PHQ-9 Depression Total Score: 2 03/08/2015 11:16 AM CS T documented as of this encounter Care Teams Waterproof Bag Sewer Relationship Specialty Start Date End Date Silver Givens M.D. PCP - General Family Medicine 11/10/19 12/09/[address] [place] [phone] documented as of this encounter
--- OUTSIDE RECORDS SUMMARY | 2021-12-17 09:46 | XMS_ITS | Encounter Summary ---
:1940 Author Organization [facility] Address [address] [place] [address] Care Team Providers Name Role Phone Silver Givens M.D. Primary Care Provider Reason for Visit Reason Comments Communication outside referral Encounter Details Date Type Department Care Team Description 09/11/2020 Clinical Department of Ulysses, Communication Communication General Surgery in [facility], (outside referral) Sammy LuP.NLara [address] [phone] Social History Tobacco Use Types Packs/Day Years Used Date Smoking Tobacco: Former Smokeless Tobacco: Never Alcohol Use Standard Drinks/Week Comments No 0 (1 standard drink = 0.6 oz pure alcoho l) Sex Assigned at Date Recorded Not on file documented as of this encounter Miscellaneous Notes Telephone Encounter - Carmen Mcdonald L.P.N. - 09/18/2020 3:14 PM CDT Patient states he was not able to get Golytely prep from his pharmacy. He did poultry picker 2 4.1 oz bottles of clear lax and 2 dulcolax tablets instead. Telephone Encounter - Carmen Mcdonald L.P.N. - 09/12/2020 1:51 PM CDT Scheduled for both procedures, instructions mailed. Telephone Encounter - Coy Forbes M.D. - 09/11/2020 3:27 PM CDT Oh, let's just set him up for both. It would be better to get it done all at once. Ordered. Thanks! Telephone Encounter - Shayla Arizmendi L.P.N. - 09/11/2020 2:[address] [facility] Dr. Dontrell Woodward T# [phone] F#[phone] Anemia, unspecified type (D64.9) Gualac positive stools (R19.5 Hgb drop from 15.5 to 12.8 in one years time, Immune fecal occult blood test positive. Last colonoscopy greater than [address] Woodward is ordering Golytely and giving pt. His instructions for the prep. Dr. Woodward's dictation says If colonoscopy is normal and no signs of bleeding the specialist should consider Doing endoscopy as weel. Or if preferred specialist could do the upper endosocpy first followed by the colonoscopy. documented in this encounter Plan of Treatment Not on filedocumented as of this encounter Visit Diagnoses Diagnosis Anemia Iron Deficiency Blood Loss Chroni c - Primary Stool Positive Occult Blood documented in this encounter Additional Health Concerns Assessment Noted Time PHQ-9 Depression Total Score: 2 03/08/2015 11:16 AM CS T documented as of this encounter Care Teams Manugrapher Relationship Specialty Start Date End Date Silver Givens M.D. PCP - General Family Medicine 11/10/19 12/09/[address] [phone] documented as of this encounter
--- OUTSIDE RECORDS SUMMARY | 2021-12-17 09:46 | XMS_ITS | Encounter Summary ---
:1940 Author Organization [facility] Address [address] [place] [address] Care Team Providers Name Role Phone Silver Givens M.D. Primary Care Provider Encounter Details Date Type Department Care Team Description 09/18/2021 Clinical Department of Fabien Gillette, Communication Otorhinolaryngology in [place], [place] [address] [place] [address] [address] [place] [address] [address] [place], [place] [phone] Social History Tobacco Use Types Packs/Day Years Used Date Smoking Tobacco: Former Smokeless Tobacco: Never Alcohol Use Standard Drinks/Week Comments No 0 (1 standard drink = 0.6 oz pure alcoho l) Sex Assigned at Date Recorded Not on file documented as of this encounter Miscellaneous Notes Telephone Encounter - Deb Arteaga - 09/18/2021 4:34 PM CDT 1st attempt: Left message Telephone Encounter - Golden Arce [email or web address].[email or web address] - 09/18/2021 3:13 PM CDT Please reschedule patient with scheduling guidelines for ENT scheduling. Needed: LATEST APPOINTMENT 02:00 PM, COVID 2-5 DAYS PRIOR and 30 MIN APPOINTMENT Reach out to ENT with any questions or concerns. documented in this encounter Plan of Treatment Scheduled Orders Name Type Priority Associated Diagnoses Order S chedule SARS Coronavirus-2 Microbiology Routine Screening Examination 1 Occurrences RNA, V Asymptomatic For Viral Disease sta rting 09/18/2021 until 3 documented as of this encounter Visit Diagnoses Diagnosis Screening Examination For Viral Disease - Primary documented in this encounter Additional Health Concerns Assessment Noted Time PHQ-9 Depression Total Score: 2 03/08/2015 11:16 AM CS T documented as of this encounter Care Teams Railcar Mechanic Relationship Specialty Start Date End Date Silver Givens M.D. PCP - General Family Medicine 11/10/19 12/09/[address] [place] [address] [id number] documented as of this encounter
--- OUTSIDE RECORDS SUMMARY | 2021-12-17 09:46 | XMS_ITS | Encounter Summary ---
:1940 Author Organization [facility] Address [address] [place] [address] Care Team Providers Name Role Phone Silver Givens M.D. Primary Care Provider Reason for Visit Reason Comments Abdominal Pain Chest Pain Encounter Details Date Type Department Care Team Description 11/30/2021 Emergency [facility] Hamzah Hernández, Chasidy ominal Pain (Primary Dx); Emergency Department M.D. Coronary Artery Disease With Stable Olivia na ([facility]) [address] [place] [id number] [phone] (Wo rk) Social History Tobacco Use Types [...] Sign Reading Time Taken Comments Blood Pressure 187/90 11/30/2021 6:45 PM CDT Pulse 52 11/30/2021 6:45 PM CDT Temperature 36.6 ??C (97.9 ??F) 11/30/2021 2:15 PM CDT Respiratory Rate 13 11/30/2021 6:45 PM CDT Oxygen Saturation 95% 11/30/2021 6:45 PM CDT Inhaled Oxygen Concentration - - Weight 73.1 kg (161 lb 2.5 oz) 11/30/2021 2:05 PM CDT Height - - Body Mass Index 26.01 01/25/2020 4:33 PM CDT documented in this encounter Discharge Instructions Discharge InstructionsTj Rosales Jr., M.D. - 11/30/2021 4:06 PM CDT You were seen today in the emergency department for evaluation of chest pain and abdominal pain. Your laboratory results showed no acute cardiac process or electrolyte abnormality. X-ray imaging showedno acute signs of infection or lung process. You were seen by the Cardiology team today who recommended follow up with stress test and further cardiac management. Return to the emergency department if you experience new symptoms including worsening chest pain, palpitations, shortness of breath, worsening abdominal pain, intractable vomiting, or diarrhea. AttachmentsThe following attachments cannot be sent through Care Everywhere. Coronary Artery Disease Male (Algerian)documented in this encounter Medications at Time of Discharge Medication Sig Dispensed Refills Start Date End Date aspirin-calcium carbonate Take 1 tablet by 0 81 mg-300 mg calcium(777 mouth. mg) tablet atorvastatin Take 80 mg by mouth 0 01/27/2017 (for_LIPITOR) 80 mg daily. tablet metoprolol succinate Take 0.5 tablets [...] mg by mouth 0 01/09/20 17 daily. isosorbide mononitrate Take 1 tablet (30 30 tablet 11 202111/30/2022 (IMDUR) 30 mg 24 hr mg total) by mouth tablet daily. documented as of this encounter Consult Notes Nic Mitchell P.A.-C., M.S. - 11/30/2021 3:33 PM CDT CARDIOLOGY CONSULT NOTE Cardiology Collaborating Hurricane Tracker: Dr. Sam Bradshaw CHIEF COMPLAINT/REASON FOR VISIT Chest pain HISTORY OF PRESENT ILLNESS Mr. Vines is a 81 y.o. male who is being evaluated in the ED for chest pain. Medical comorbidities include: Coronary artery disease, STEMI status post drug- eluting stent and thrombectomy mid RCA 12/19/2011, NSTEMI status post status stent to the proximal LAD 08/15/2018, hyperlipidemia, polymyalgia rheumatica, iron deficiency anemia, GERD, Almeida's esophagus. He states he was seen by his PCP yesterday and today for chest and abdominal pain, he reports being told he had an abnormal ECG and given his symptoms was recommended he come to the ED today. He describes epigastric discomfort rated 2/10 in severety, unable to describe character. Nonradiating. Lasts around 45 minutes. Does not seem tied to any activity, not specifically with eating, activity or positions. Nothing seems to make the pain better. Pressing on the area seems to hurt more but nothing else makes worse. This has been on and off for about 1 month, does not occur daily. He has no associated symptoms with this pain. He also describes left sided chest pain more anginal sounding in nature. Described as pressure sensation, unable to rate severity. This has been present for several months now, he feels maybe a slight increase in frequency but no drastic changes recently. He will have associated dyspnea. This only occurs with exertion and never at rest. Will occur reliably after 10-12 minutes of walking. Will resolvewithin 2-5 minutes of rest. No diaphoresis, dizziness or lightheadedness, nausea or vomiting. He has no fevers or chills. No coughing. No swelling in legs or abdomen. No blood noted in urine or stool. Labs in the ED show hemoglobin 13.1, normal platelet and WBC. Unremarkable BMP. Initial troponin negative at 12, NT proBNP 227. ECG shows sinus bradycardia with a ventricular rate of 54 beats per minute, no ST elevation or depression, no significant change compared to ECG from 01/2020. Chest x-ray with no significant change compared to yesterday, no consolidation or effusion, no evidence of heart failure, normal cardiac size. Initial blood pressure 173/88, afebrile, on room air. The following portions of the patient's history were reviewed and updated as appropriate: allergies,current medications, family history, medical history, social history, surgical history and problem list. PAST MEDICAL HISTORY Past Medical History: Diagnosis Date Cataract Coronary Artery Disease (Unspecified) [place] Macular Bilateral Fracture Vertebra Thoracic Closed Initial (HCC) 04/20/2008 Gastroesophageal Reflux Disease NOS Hyperlipidemia Non-ST Elevation Myocardial Infarction ([facility]) 08/15/2018 Polymyalgia Rheumatica ([facility]) 03/25/2007 Post Operative Nausea/Vomiting ST Elevation Myocardial Infarction Of Unspecified Site ([facility]) Stroke ([facility]) Past Surgical History: Procedure Laterality Date ARTHROPLASTY OF SHOULDER N/A 03/23/2015 Arthroplasty of the shoulder ARTHROPLASTY TOTAL REVERSE SHOULDER Left 01/25/2020 Procedure: ARTHROPLASTY TOTAL REVERSE SHOULDER-; Surgeon: Marv Dodson M.D.; Location: [facility] OR CARPAL TUNNEL RELEASE N/A 02/24/2007 >Right carpal tunnel release. CATH ANGIOGRAM N/A 08/15/2018 Procedure: Coronary Angiography; Surgeon: Jacques Barraza M.D.; Location: [facility] CATH INTERVENTION N/A 08/15/2018 Procedure: Stent Placement; Surgeon: Jacques Barraza M.D.; Location: [facility] CATH PTCA N/A 08/15/2018 Procedure: Percutaneous Coronary Angioplasty; Surgeon: Jacques Barraza M.D.; Location: [facility] COLONOSCOPY N/A 09/29/2020 Procedure: COLONOSCOPY-P; Surgeon: Wood Car M.D.; Location: [facility] GI LAB CORONARY ANGIOPLASTY WITH STENT PLACEMENT N/A 12/19/2011 >1. Percutaneous coronary intervention with drug-eluting stent following a lytics for STEMI (lytics DECOMPRESSION OF MEDIAN NERVE N/A 10/17/2006 Carpal tunnel release ESOPHAGOGASTRODUODENOSCOPY N/A 09/29/2020 Procedure: ESOPHAGOGASTRODUODENOSCOPY; Surgeon: Wood Car M.D.; Location: [facility] GI LAB EXTRACTION CATARACT WITH INSERTION INTRAOCULAR LENS Right 07/07/2017 Procedure: EXTRACTION CATARACT WITH INSERTION INTRAOCULAR LENS; Surgeon: Raymundo Muniz M.D.; Location: [facility] OR EXTRACTION CATARACT WITH INSERTION INTRAOCULAR LENS Left 07/21/2017 Procedure: EXTRACTION CATARACT WITH INSERTION INTRAOCULAR LENS; Surgeon: Raymundo Muniz M.D.; Location: [facility] OR MOHS SURGERY N/A 06/23/2006 >Mohs Micrographic Surgery With Layered Closure. OTHER SURGICAL HISTORY N/A 08/21/1999 Endarterectomy and angioplasty of neck artery REVIEW OF SYSTEMS A complete 10 point review of systems was completed and negative except for as mentioned in the HPI. ALLERGIES Allergies Allergen Reactions Oxycodone Other (see comments) Confusion HOME MEDICATIONS No current facility-administered medications for this encounter. Current Medications: aspirin-calcium carbonate 81 mg-300 mg calcium(777 mg) tablet, Take 1 tablet by mouth. atorvastatin (for_LIPITOR) 80 mg tablet, Take 80 mg by mouth daily. metoprolol succinate (TOPROL-XL) 25 mg 24 hr tablet, Take 0.5 tablets (12.5 mg total) by mouth daily. (Patient taking differently: Take 25 mg by mouth daily.) pantoprazole (PROTONIX) 40 mg EC tablet, Take 1 tablet (40 mg total) by mouth daily. ZETIA 10 mg tablet, Take 10 mg by mouth daily. nitroglycerin (for_NITROSTAT) 0.4 mg SL tablet, Place 1 tablet under the tongue every 5 (five) minutes as needed for chest pain. SOCIAL HISTORY Reports that he has quit smoking 45-50 years ago. Rare alcohol use. No recreational drug use. FAMILY HISTORY No known family history or cardiac disease. VITAL SIGNS Temperature: [36.6 ??C] 36.6 ??C Heart Rate: [47-49] 47 Resp Rate: [13-17] 17 Blood Pressure: (173-177)/(66-101) 173/88 SpO2: [95 %-97 %] 95 % Weight: [73.1 kg] 73.1 kg Pulse Rate: [50-55] 50 Body mass index is 26.01 kg/m??. PHYSICAL EXAMINATION General: Resting comfortably in bed. No apparent distress. Answers all questions appropriately. HEENT: Extraocular movements intact. Sclerae clear. Heart: Regular rhythm, mildly bradycardic. No JVD noted. No murmur noted. No lower extremity edema. Lungs: Breathing is regular and nonlabored on room air at rest. Lungs clear to auscultation bilaterally. Abdomen: Soft, nontender, nondistended. Extremities: Warm, dry. Mental: Alert and oriented x3. DIAGNOSTICS Lab Results Component Value Date WBC 7.5 11/30/2021 HGB 13.1 (L) 11/30/2021 HCT 40.8 11/30/2021 MCV 85.2 11/30/2021 PLT 246 11/30/2021 Lab Results Component Value Date NA 144 11/30/2021 KSERUM 4.2 07/06/2019 KPLASMA 3.8 11/30/2021 CL 104 11/30/2021 BICARB 26 11/30/2021 CREATININE 1.13 11/30/2021 EGFRNONBLKAA 61 11/30/2021 EGFRBLKAA 71 11/30/2021 BUN 8 11/30/2021 ANIONGAP 14 11/30/2021 GLUCOSE 97 11/30/2021 CALCIUM 8.9 11/30/2021 Lab Results Component Value Date ALT 40 11/30/2021 AST 37 11/30/2021 ALKPHOS 248 (H) 11/30/2021 BILITOT 1.3 (H) 11/30/2021 Results from last 7 days Lab Units 11/30/21 1630 11/30/21 1438 TRPB TROPONIN T BASE ng/L -- 12 TRPST TROP 2H ng/L 12 -- TRPST TROP 6H ng/L CANCELED -- NT-Pro BNP 227 ECG 11/30/21 Sinus bradycardia, ventricular rate [address] elevation or depression. No acute ischemic changes. Chest Xray 11/30/21 No significant change since outside radiographs from yesterday. No focal pulmonary consolidation or pleural effusion. Normal size of the cardiac silhouette. Coronary artery stenting. Old left rib fracture. Bilateral shoulder arthroplasties. ASSESSMENT / PLAN 1. Chest pain concerning for angina 2. Coronary artery disease - s/p stenting mid RCA 2011 and stenting proximal LAD 2018 3. Hyperlipidemia 4. Epigastric pain suspect possible GI etiology 5. GERD and Almeida's esophagus His epigastric pain sounds noncardiac in nature. It does not occur with exertion. Could be related to a GI etiology given his history. However his chest pain does sound like typical angina. It appears overall like this has been stable over the past few months, possibly small increase in frequency. Troponins negative ruling out acute myocardial injury. No ischemic changes on ECG. Will plan to do an ischemic evaluation. Given overall stability will plan to do this as an outpatient with close follow up. Recommendations: 1. Start Imdur 30 mg daily. 2. Refilled prescription for sublingual nitroglycerin and updated him on how and when to use safely. 3. Continue metoprolol 12.5 mg daily, unable to increase due to bradycardia. 4. Continue aspirin 81 mg daily, atorvastatin 80 mg daily, and Zetia 10 mg daily. 5. Will schedule outpatient stress echo next week with follow up with cardiology to go over the results. MARGIN CODE Total time: 30 min, Counseling Time: Greater than 50% Nic Mitchell P.A.-C., M.S. 11/30/21 documented in this encounter ED Notes Tj Rosales Jr., M.D. - 11/30/2021 2:29 PM CDT EMERGENCY MEDICINE CHIEF COMPLAINT Abdominal Pain and Chest Pain HISTORY OF PRESENTING ILLNESS Obey Vines is a 81 y.o. male with a past medical history of CAD, who presents to the emergencydepartment for evaluation of abdominal pain and chest pain. Patient began feeling upper mid abdominal pain this morning after having a cup of coffee. Describes it as dull and achy, intermittent presentation with no radiation. He has had similar pain intermittently throughout the past month. Not associated with specific times of the day or meals. Denies nausea or vomiting, changes in stool color, no diarrhea or constipation. Past EGD in September of 2020 showed Almeida's esophagus, hiatal hernia, multiple gastric polyps, and non erosive gastropathy in the duodenum. Colonoscopy in September of 2020 showed diverticulosis and several polyps in the transverse colon. REVIEW OF SYSTEMS Constitutional: Negative for chills and fever. HENT: Negative for congestion, sore throat and trouble swallowing. Eyes: Negative for photophobia and visual disturbance. Respiratory: Negative for cough, hemoptysis, shortness of breath, wheezing and stridor. Cardiovascular: Negative for chest pain and leg swelling. Gastrointestinal: Negative for abdominal distention, abdominal pain, diarrhea, nausea and vomiting. Endocrine: Negative for cold intolerance and heat intolerance. Genitourinary: Negative for dysuria, flank pain and hematuria. Musculoskeletal: Negative for neck pain and neck stiffness. Skin: Negative for itching and rash. Neurological: Negative for dizziness and headaches. Psychiatric/Behavioral: Negative for agitation and confusion. Initial Vitals [11/30/21 1415] Temperature Pulse Rate Heart Rate Resp Rate Blood Pressure SpO2 36.6 ??C (!) 55 (!) 49 16 (!) 173/101 97 % Pain Score 0 - No pain PHYSICAL EXAM Constitutional: Vitals reviewed. He appears not lethargic. No distress. HENT: Head: Normocephalic and atraumatic. Mouth/Throat: Oropharynx is clear and moist. Mucous membranes are moist. Eyes: EOM are normal. Pupils are equal, round, and reactive to light. Neck: No JVD present. Cardiovascular: Regular rhythm and normal heart sounds. No bradycardia present. Pulses are palpable. Pulmonary/Chest: Effort normal and breath sounds normal. He has no wheezes. He has no rhonchi. Abdominal: Soft. Bowel sounds are normal. exhibits no distension. There is no abdominal tenderness. There is no guarding. Ventral diastasis Neurological: Alert and oriented to person, place, and time. No cranial nerve deficit. Skin: Skin is dry. Psychiatric: He has a normal mood and affect. Behavior is normal. ASSESSMENT AND PLAN Briefly this is a 81 y.o. male with a history of CAD prior MO, s/p stenting Please see HPI for further information. On exam afebrile, hemodynamically stable and in no distress. Unremarkable abdominal exam Differential diagnosis includes but is not limited to abdominal hernia, PUD, gastritis, GERD We will obtain appropriate diagnostic testing. ED Course as of 11/30/211852Nov 30, 2021 1521 Troponin T, Baseline, 5th gen: Troponin T, Baseline, 5th gen 12 Negative troponin 1523 CBC with Differential, Blood(!): Hemoglobin 13.1(!) Hematocrit 40.8 Erythrocytes 4.79 MCV 85.2 RBC Distrib Width 15.7(!) Platelet Count 246 White Blood Cell Count 7.5 Neutrophils 4.92 Lymphocytes 1.66 Monocytes 0.55 Eosinophils 0.32 Basophils 0.03 Slightly decreased from baseline 1523 Basic Metabolic Panel: Potassium, P 3.8 Sodium, P 144 Chloride, P 104 Bicarbonate, P 26 Anion Gap, P 14 BUN (Blood Urea Nitrogen), P 8 Creatinine, P 1.13 eGFR-Black/ 71 eGFR Non-Black/ 61 Calcium, Total, P 8.9 Glucose, P 97 WNL 1523 NT-Pro B-Type Natriuretic Peptide (BNP): NT-Pro BNP 227 WNL 1523 ECG 12 Lead Sinus bradycardia with sinus arrhythmia Premature ventricular complexes Otherwise normal ECG When compared with ECG of 18-JAN-2020 12:07, No significant change was found 1524 DX Chest AP or PA and Lateral 2 Views No focal pulmonary consolidation or pleural effusion. Normal size of the cardiac silhouette Final Diagnoses: as of 11/30/211852 Abdominal Pain Coronary Artery Disease With Stable Angina (HCC) Spoke to cardiology team service. Stable to discharge Recommended nitros and follow-up with stress test scheduling next week. I reviewed previous medical records including lab results and EKG images/reports. I personally reviewed the lab result(s) and my interpretation is documented in ED Course. I reviewed the radiology report(s). Tj Rosales Jr., M.D. Resident 11/30/211853 Yosi Cam Jr., R.N. - 11/30/2021 2:26 PM CDT The patient presents to the ED with on again off again left sided chest pain for the past month. Thepatient's ADVICE CLERK from [place] with the [facility] suggested that patient be seen based on ECG changes. The patient denies SOB or chest pain on arrival. Yosi Cam Jr., R.N. 11/30/21 1431 TTET Hamzah Hernández M.D. - 11/30/2021 2:25 PM CDT I have personally seen and examined this patient. I have fully participated in the care of this patient. I have reviewed all clinical information including history, physical exam, orders, and plan. I agree with the note of the resident. Obey Vines is a 81 y.o. male who was referred to the emergency department by his primary care provider with concern for changes in his ECG. I do not have access to the specific ECG in question was performed and their clinic outside of the [place] system earlier today, however. The patient has had intermittent pain in two places. What he initially presents to me is pain in his epigastrium that occurred on off at random for the past month or so. Not associated with food or exertion. He is not having it right now; last experience that this morning. The patient describes a separate pain in his left upper chest that occurs with exertion. Neither of these pains are associated with shortness of breath, vomiting, diarrhea, nausea, or diaphoresis. Neither pain radiates anywhere. The patient denies any symptoms at this time On exam, the patient is generally well-appearing. Heart rate is slightly bradycardic but regular rhythm. Lungs are clear to auscultation bilaterally with normal work of breathing. 2+ radial pulses bilaterally. Abdomen is soft and nontender including no tenderness epigastrium right upper quadrant. Negative Gallegos sign. Calves are symmetric and nontender; no some lower extremity edema appreciated. This is an 81-year-old male referred to the emergency department concern for ECG changes intermittent chest/upper abdominal pain. He has ECG here in emergency department shows sinus bradycardia, but I do not appreciate any obvious findings to suggest acute ischemia. Fortunately, he is asymptomatic andphysical exam is fairly reassuring at the moment. The left upper chest pain is more concerning for angina, though when here for the patient's sounds like stable angina. Nonetheless, will check labs including troponin. I am not suspecting PE or acute aortic pathology based on the description of the pain, duration of symptoms, and current exam. The abdominal pain could be GI in etiology, though his exam is such that my suspicion for biliary colic or cholecystitis is extremely low. Similarly, the patient denies having had any severe episodes of pain that would point toward colic. Will check LFTs and lipase, but I do not think abdominal imaging is needed emergently today. Given the concern by the referring provider, will speak with cardiology. I reviewed previous medical records including documentation from previous visits and EKG images/reports. I personally reviewed the lab result(s) and my interpretation is documented in ED Course. I personally reviewed the radiology image(s) and reviewed the radiology report(s). The Radiology exam interpretation(s) is/are documented in ED Course. ECG Results Review comments: Documented in MDM. Case reviewed with other health primary care nurse practitioner, including Cardiology. ED Course as of 11/30/212023Nov 30, 2021 1842 No troponin delta at 2 hours. Cardiology evaluate the patient. They prescribed in her and will bring the patient back for further evaluation next week but do not feel additional cardiac testing isneeded tonight. The patient had several questions about the plan, which I answered to the best of myability. The patient was instructed return to the emergency department with further chest pain or other new or worsening symptoms. Patient and family present with him in the ED expressed understanding of this plan and indicated that they are comfortable with it. All of their questions were answered tothe best of my ability prior to discharge. Final Diagnoses: as of 11/30/212023 Abdominal Pain Coronary Artery Disease With Stable Angina (HCC) Hamzah Hernández M.D. 11/30/212023 documented in this encounter Plan of Treatment Not on filedocumented as of this encounter Procedures Procedure Name Priority Date/Time Associated Comments Diagnosis TROPONIN T, 2H/6H, Timed 11/30/2021 4:30 Result s for this 5TH GEN, P PM CDT procedure are i n the results section. DX CHEST AP OR PA RAD - Semiurgent 11/30/2021 3:03 Res ults for this AND LATERAL 2 VIEWS (Fast; most ED PM CDT proced ure are in patients; some the results inpatients) section. TROPONIN T, STAT 11/30/2021 2:38 Results for this BASELINE, 5TH GEN, PM CDT procedure are in P the results section. HEPATIC FUNCTION STAT 11/30/2021 2:38 Results for this PANEL, S PM CDT procedure are i n the results section. NT-PRO B-TYPE STAT 11/30/2021 2:38 Results for this NATRIURETIC PEPTIDE PM CDT procedur e are in (BNP), S the results section. PROTHROMBIN TIME STAT 11/30/2021 2:38 Results for this (PT), P PM CDT procedure are i n the results section. CBC WITH STAT 11/30/2021 2:38 Results for this DIFFERENTIAL, B PM CDT procedure ar e in the results section. LIPASE, S/P STAT 11/30/2021 2:38 Results for this PM CDT procedure are i n the results section. BASIC METABOLIC STAT 11/30/2021 2:38 Results f or this PANEL, S/P PM CDT procedure are i n the results section. ECG STAT 11/30/2021 2:09 Results for this PM CDT procedure are i n the results section. documented in this encounter Results Troponin T, 2H/6H, 5th Gen (11/30/2021 4:30 PM CDT) [facility] Method Time Signature Troponin T, 2 12 <=15 ng/L 11/30/2021 [facility] hr, 5th gen 4:56 PM CDT 2H Delta 0 ng/L 11/30/2021 [facility] 4:56 PM CDT 2H Delta Not Changing 11/30/2021 [facility] Interp 4:56 PM CDT Troponin T, 6 CANCELED ng/L 11/30/2021 [facility] hr, 5th gen 4:56 PM CDT Comment: Result canceled by the ancillar y. Specimen Anatomical Collection Method Collection Time Receive d Time (Source) Location / / Volume Laterality Blood (Blood, 11/30/2021 4:30 PM 12/01/19 4:33 Venous) CDT PM CDT Narrative [facility] - 11/30/2021 4:56 PM CDT Specimen Information: Specimen ID: [id number] Specimen Type: Blood Specimen Collection Start Date: 12/01/19 ??4:30 PM Specimen Received Date: 11/30/2021 ??4:3 3 PM Specimen ID: [id number] Specimen Type: Blood Specimen Collection Start Date: 12/01/19 ??4:56 PM Specimen Received Date: 11/30/2021 ??4:5 6 PM Hamzah Hernández M.D. LAB BLOOD TROPONIN Performing Organization Address City/State/ZIP Code Phon e Number [facility] - [address] [place], [place] [address] [place] [address] [facility] [address] DX Chest AP or [...] Hamzah Hernández M.D. IMG DIAGNOSTIC IMAGING PROCE [facility] Troponin T, Baseline, 5th gen (11/30/2021 2:38 PM CDT) athologist Signature Troponin T, 12 <=15 ng/L 11/30/2021 [facility] Baseline, 5th 3:06 PM CDT gen Specimen Anatomical Collection Method Collection Time Receive d Time (Source) Location / / Volume Laterality Blood (Blood, 11/30/2021 2:38 PM 12/01/19 22 2:44 Venous) CDT PM CDT Hamzah Hernández M.D. LAB BLOOD TROPONIN Performing Organization Address City/State/ZIP Code Phon e Number [facility] - [address] [place], [place] [address] [place] [address] [facility] [address] Prothrombin Time (PT) (11/30/2021 2:38 PM CDT) P athologist Signature Prothrombin 12.5 9.4 - 12.5 11/[facility]2021 [facility] Time, P sec 2:53 PM CDT INR 1.1 0.9 - 1.1 11/30/2021 [facility] 2:53 PM CDT Comment: ----ADDITIONAL INFORMATION---- Standard intensity warfarin therapeutic range: 2.0 to 3.0 ?? High intensity warfarin therapeutic rang e: 2.5 to 3.5 Specimen Anatomical Collection Method Collection Time Receive d Time (Source) Location / / Volume Laterality Blood (Blood, 11/30/2021 2:38 PM 12/01/19 22 2:44 Venous) CDT PM CDT Hamzah Hernández M.D. LAB BLOOD ADD-ON Performing Organization Address [facility] Phon e Number [facility] - [address] NT-Pro B-Type Natriuretic Peptide (BNP) (11/30/2021 2:38 PM CDT) athologist Signature NT-Pro BNP 227 <=540 pg/mL [facility]20[facility] PM CDT Comment: NT-proBNP values less [...] M.D. LAB BLOOD ADD-ON Performing Organization Address [facility] Phon e Number [facility] - [address] [place], [place] [address] [place] [address] [facility] 200 [facility] Lipase (11/30/2021 2:38 PM CDT) P athologist Signature Lipase, S 32 13 - 60 U/L 11/30/2021 3:38 DTL PM CDT Specimen Anatomical Collection Method Collection Time Receive d Time (Source) Location / / Volume Laterality Blood (Blood, 11/30/2021 2:38 PM 12/01/19 3:09 Venous) CDT PM CDT Hamzah Hernández M.D. LAB BLOOD ADD-ON Performing Organization Address City/[facility] Phon e Number [facility] [address] [phone] [facility] [place] [address] Laboratories-[address] (ABNORMAL) Hepatic Function Panel (11/30/2021 2:38 [...] Organization Address City/State/ZIP Code Phon e Number [facility] - [address] [place] [phone] [facility] [place] [address] Laboratories-[facility] 200 [facility] (ABNORMAL) CBC with Differential, Blood (11/30/2021 2:38 PM CDT) [facility] Method Time Signature Hemoglobin 13.1 (L) 13.2 [...] Organization Address City/State/ZIP Code Phon e Number [facility] - 200 [place], [place] [address] [facility] [place] [address] Laboratories-[facility] 200 [facility] Basic Metabolic Panel (11/30/2021 2:38 PM CDT) [...] CDT eGFR-Black/Afri 71 >=60 11/30/2021 [facility] can [place] mL/min/BSA 3:02 PM CDT Comment: ----ADDITIONAL INFORMATION---- [...] Organization Address City/State/ZIP Code Phon e Number [facility] - 200 [place], [place] [address] [facility] [place] [address] Laboratories-[facility] [address] ECG 12 Lead (11/30/2021 2:09 PM CDT) P athologist Signature Ventricular Rate 54 BPM MUSE ECG/Min CO Interval 178 ms MUSE QRSD Interval 84 ms MUSE QT Interval 444 ms MUSE QTC Interval 421 ms MUSE P [place] 54 degrees MUSE R [place] 2 degrees MUSE T Wave [place] 30 degrees MUSE Specimen Anatomical Collection Method [...] Hernández M.D. ECG ORDERABLES Performing Organization Address City/State/ZIP Code Phon e Number MUSE MUSE NA documented in this encounter Visit Diagnoses Diagnosis Abdominal Pain - Primary Coronary Artery Disease With Stable Olivia na (HCC) documented in this encounter Additional Health Concerns Assessment Noted Time PHQ-9 Depression Total Score: 2 03/08/2015 11:16 AM CS T documented as of this encounter Care Teams Benefits Consultant Relationship Specialty Start Date End Date Silver Givens M.D. PCP - General Family Medicine 11/10/19 12/09/[address] [place] [phone] documented as of this encounter
--- OUTSIDE RECORDS SUMMARY | 2021-12-17 09:46 | XMS_ITS | Encounter Summary ---
:1940 Author Organization [facility] Address [address] [place] [address] Care Team Providers Name Role Phone Silver Givens M.D. Primary Care Provider Reason for Referral Specialty Diagnoses / Procedures Referred By Contact Refer red To Contact Silver Givens M.D. [address] [phone] Referral ID Status Reason Start Date Expiration Date Visits Requ ested Visits Authorized Encounter Details Date Type Department Care Team Description 09/18/2021 Orders Only [facility] Jasmyn Givens M.D. [address] [place] [phone] (Wo rk) Social History Tobacco Use Types Packs/Day Years Used Date Smoking Tobacco: Former Smokeless Tobacco: Never Alcohol Use Standard Drinks/Week Comments No 0 (1 standard drink = 0.6 oz pure alcoho l) Sex Assigned at Date Recorded Not on file documented as of this encounter Plan of Treatment Scheduled Referrals Name Type Priority Associated Order Schedule Diagnoses Covid immunization Outpatient Referral Routine Ex pected: office visit Booster 022 (Approximate), Expires: 09/18/2022 documented as of this encounter Visit Diagnoses Not on filedocumented in this encounter Additional Health Concerns Assessment Noted Time PHQ-9 Depression Total Score: 2 03/08/2015 11:16 AM CS T documented as of this encounter Care Teams Peripheral Vascular Tech Relationship Specialty Start Date End Date Silver Givens M.D. PCP - General Family Medicine 11/10/19 12/09/[id number] [place] [phone] documented as of this encounter
--- OUTSIDE RECORDS SUMMARY | 2021-12-17 09:46 | XMS_ITS | Encounter Summary ---
:1940 Author Organization [facility] Address [address] [place] [address] Care Team Providers Name Role Phone Silver Givens M.D. Primary Care Provider Encounter Details Date Type Department Care Team Description 01/29/2021 Orders Only [facility] PCP [facility] MNT Sa lindy Kirkland M.D. [address] [place], [place] [phone] (Wo rk) Social History Tobacco Use Types [...] documented as of this encounter Care Teams City Sanitarian Relationship Specialty Start Date End Date Silver Givens M.D. PCP - General Family Medicine 11/10/19 12/09/[id number] [phone] documented as of this encounter
--- OUTSIDE RECORDS SUMMARY | 2021-12-17 09:46 | XMS_ITS | Encounter Summary ---
:1940 Author Organization [facility] Address [address] [place] [address] Care Team Providers Name Role Phone Silver Givens M.D. Primary Care Provider Reason for Visit Reason Comments Pain History [facility] Encounter Details Date Type Department Care Team Description 08/20/2021 Office Visit Department of Marv Dodson Pain Shou lder Left Orthopedic Surgery in M.D. (Primary Dx) [address] [phone] Social History Tobacco Use Types Packs/Day Years Used Date Smoking Tobacco: Former Smokeless Tobacco: Never Alcohol Use Standard Drinks/Week Comments No 0 (1 standard drink = 0.6 oz pure alcoho l) Sex Assigned at Date Recorded Not on file documented as of this encounter Progress Notes Marv Dodson M.D. - 08/20/2021 3:30 PM CDT CHIEF COMPLAINT/REASON FOR VISIT Left shoulder pain. HISTORY OF PRESENT ILLNESS Obey is an 81-year-old left-hand dominant gentleman who underwent a left shoulder reverse replacement a year and a half ago in 01/2020. He states that the shoulder did not do quite as good as his otherside. His range of motion is sore as he gets up to abducted at about 60 degrees. It is deep down inside shoulder pain. Troubles occasionally getting dressed. It is more of a nuisance than a significantpain. He is just comparing this to his contralateral side which he did well with postoperatively. Preoperatively, he did have some more difficulty with range of motion of his left side compared to the contralateral side. He has almost regained all of his range of motion that he had preoperatively. Thepatient states that it is something he lives with, he just wants to make sure nothing is wrong with the implant. OBJECTIVE PHYSICAL EXAMINATION General: The patient is alert, pleasant, no acute distress. Left Shoulder: Evaluation of his shoulder on the left side reveals forward elevation actively to 130degrees today without difficulty or pain. His abduction is to 90 degrees. It does produce some mild discomfort at about 60 degrees of abduction. External rotation is to about 15-20 degrees. Internal rotation is back pocket. He has no significant swelling to the shoulder. CMS otherwise intact, left upper extremity. Decent strength with rotation as well as empty can. DIAGNOSTICS On radiographic evaluation, he does have some mild scapular notching, but no signs of fracture. He does have a small lucency around the glenoid peg and screws, but no overt loosening. Stem appears to be well fit and filled. ASSESSMENT / PLAN #1 Painful left reverse shoulder arthroplasty PLAN: At this point in time, I do think that his symptoms are related to his preoperative symptoms. There is a possibility of glenoid base plate loosening seen on 1 image today. We discussed evaluatingthis in the future with repeat x- rays. He will return to the clinic in followup every year for x-rays, sooner if symptoms worsen for further imaging of his reverse total shoulder. All of his questions were answered. documented in this encounter Plan of Treatment Not on filedocumented as of this encounter Visit Diagnoses Diagnosis Pain Shoulder Left - Primary documented in this encounter Additional Health Concerns Assessment Noted Time PHQ-9 Depression Total Score: 2 03/08/2015 11:16 AM CS T documented as of this encounter Care Teams Mat Linker Relationship Specialty Start Date End Date Silver Givens M.D. PCP - General Family Medicine 11/10/19 12/09/[id number] [phone] documented as of this encounter
--- OUTSIDE RECORDS SUMMARY | 2021-12-17 09:46 | XMS_ITS | Encounter Summary ---
:1940 Author Organization [facility] Address [address] [place] [address] Care Team Providers Name Role Phone Silver Givens M.D. Primary Care Provider Reason for Visit Physical Therapy (Routine) - Canceled Specialty Diagnoses / Procedures Referred By Contact Refer red To Contact Diagnoses Aftercare Total Shoulder Arthroplasty Laine Day, P.A.-C. [facility] Procedures PT Ongoing treatment [address] [facility] [place] [phone] Referral ID Status Reason Start Date Expiration Date Visits V isits Requested Authorized [id number] Canceled 02/07/2020 02/06/2021 99 99 Encounter Details Date Type Department Care Team Description 02/28/2020 Clinical Support Department of Laine Day, P.A.-C. [address] [facility] [place] [phone] Aftercare Total Rehabilitation Arti Lunbderg P.TLara [address] [place] [phone] Shoulder Services in [address] [phone] Social History Tobacco Use Types Packs/Day Years Used Date Smoking Tobacco: Former Smokeless Tobacco: Never Alcohol Use Standard Drinks/Week Comments No 0 (1 standard drink = 0.6 oz pure alcoho l) Sex Assigned at Date Recorded Not on file documented as of this encounter Progress Notes Arti Lundberg P.T. - 02/28/2020 9:00 AM CDT Physical Therapy Outpatient Treatment Note SUBJECTIVE Patient's Name: Obey Vines Referring Provider: Laine Day P.A.-C. Visit Diagnosis: 1. Aftercare Total Shoulder Arthroplasty Reason for Referral: Skilled OT referral secondary to L TSA resulting in decreased self care independence Onset Date: 01/25/20 Payor: MEDICARE / Plan: MEDICARE A AND B / Product Type: Medicare / No data recorded Epic Visit Count: 2 Patient comments: Patient has no new complaints. He feels he is doing very well. He does not feel heneeds therapy and would like to work on a home program as much as possible. OBJECTIVE Pain: pain with certain movements, not rated on pain scale. Passive range of motion for left shoulder flexion 120??, shoulder elevation 120?? and external rotation 10??. TREATMENT Treatment today consisted of: Performed passive range of motion for left shoulder flexion, elevation and external rotation throughrange of motion described above. Instructed patient on current restrictions including avoiding hyperextension, avoiding shoulder extension combined with abduction, internal rotation. Patient is also instructed for no active range of motion and no internal rotation. Patient was provided with a home exercise program to begin on 02/05/2020 which will include supine cane exercises for forward flexion, shoulder elevation both in the plane of the scapula as well as external rotation in the plane of the scapula. Patient performed 3 x 10 repetitions daily. Patient verbalized understanding was given writtenhandout with illustrations. Patient is ready to learn with no apparent learning barriers noted. Home Exercise Program/Education: Progression to active assistive exercises described above on 02/05/2020. Pt reports good compliance with his HEP. Contact monitoring: PPE used during therapy: Therapist was wearing the following PPE throughout entire session: surgicalmask and eye protection Patient was wearing a mask during therapy session: yes Additional Staff Present During Session: No Assessment Clinical Impression: Patient tolerated treatment session well. Patient is reaching his current goals. He does have tightness into external rotation which will be addressed with home exercise program. Overall he seems to be doing well but is likely overdoing his activity. Spent time going over current restrictions including no active range of motion. Patient did verbalize understanding. Functional Goals and Timeframes: PT Goal #1: [...] Date: 05/04/20 Plan Plan for next session: Continue with progression of current exercise program including initiating some max pain-free isometrics for internal and external rotation. Continue with passive range of motionand active assistive range of motion. May add pulleys into home program. Plan to see patient back in2 weeks. Time Spent with Patient Therapeutic Exercise (min): 20 min Time Calculation Total Timed Units (min): 20 min Total Treatment Time (min): 20 min Arti Lundberg P.T. Department of Rehabilitation Services in [address] [phone] Dept: [phone] documented in this encounter Plan of Treatment Not on filedocumented as of this encounter Visit Diagnoses Diagnosis Aftercare Total Shoulder Arthroplasty documented in this encounter Additional Health Concerns Assessment Noted Time PHQ-9 Depression Total Score: 2 03/08/2015 11:16 AM CS T documented as of this encounter Care Teams Subsurface Augmentee Operator Relationship Specialty Start Date End Date Silver Givens M.D. PCP - General Family Medicine 11/10/19 12/09/[address] [place] [phone] documented as of this encounter
--- OUTSIDE RECORDS SUMMARY | 2021-12-17 09:46 | XMS_ITS | Encounter Summary ---
:1940 Author Organization [facility] Address [address] [place] [address] Care Team Providers Name Role Phone Silver Givens M.D. Primary Care Provider Reason for Visit Physical Therapy (Routine) - Closed Specialty Diagnoses / Procedures Referred By Contact Refer red To Contact Diagnoses Aftercare Total Shoulder Arthroplasty Laine Day, P.A.-C. [facility] Procedures PT Evaluate and treat [address] [facility] [place] [phone] Referral ID Status Reason Start Date Expiration Date Visits Requ ested Visits Authorized [id number] Closed 01/26/2020 01/25/2021 1 1 Encounter Details Date Type Department Care Team Description 02/07/2020 Comprehensive Visit Department of Laine Day, P.A.-C. [address] [facility] [place] [phone] Aftercare Total Rehabilitation Arti Lundberg P.TLara [address] [place] [phone] Shoulder Services in [address] [phone] Social History Tobacco Use Types Packs/Day Years Used Date Smoking Tobacco: Former Smokeless Tobacco: Never Alcohol Use Standard Drinks/Week Comments No 0 (1 standard drink = 0.6 oz pure alcoho l) Sex Assigned at Date Recorded Not on file documented as of this encounter Consult Notes Arti Lundberg P.T. - 02/07/2020 1:00 PM CDT Consults Physical Therapy Outpatient Evaluation/Treatment By co-signing this note, the provider certifies the therapy being provided to this patient is reasonable and necessary for the diagnosis or treatment of this patient. SUBJECTIVE Patient's Name: Obey Vines Referring Provider: Laine Day P.A.-C. Visit Diagnosis: 1. Aftercare Total Shoulder Arthroplasty Payor: MEDICARE / Plan: MEDICARE A AND B / Product Type: Medicare / [employer] Visit Count: 1 PERTINENT MEDICAL / SURGICAL HISTORY: Patient Active Problem List Diagnosis ??? Atherosclerotic Heart Disease Of [place] Coronary Artery Without Angina Pectoris ??? Stroke Cerebrovascular Accident Personal History ??? Peripheral Vascular Disease (HCC) ??? Osteoporosis Without Pathological Fracture ??? Hyperlipidemia ??? Deficiency Vitamin D ??? Hyperglycemia ??? Gastroesophageal Reflux Disease Without Esophagitis ??? Loss Hearing Bilateral ??? Primary Osteoarthritis Shoulder Left ??? Aftercare Total Shoulder Arthroplasty Past Surgical History: Procedure Laterality Date ??? ARTHROPLASTY OF SHOULDER N/A 03/23/2015 Arthroplasty of the shoulder ??? ARTHROPLASTY TOTAL REVERSE SHOULDER Left 01/25/2020 Procedure: ARTHROPLASTY TOTAL REVERSE SHOULDER-; Surgeon: Marv Dodson M.D.; Location: [facility] OR ??? CARPAL TUNNEL RELEASE N/A 02/24/2007 >Right carpal tunnel release. ??? CATH ANGIOGRAM N/A 08/15/2018 Procedure: Coronary Angiography; Surgeon: Jacques Barraza M.D.; Location: [facility] ??? CATH INTERVENTION N/A 08/15/2018 Procedure: Stent Placement; Surgeon: Jacques Barraza M.D.; Location: [facility] ??? CATH PTCA N/A 08/15/2018 Procedure: Percutaneous Coronary Angioplasty; Surgeon: Jacques Barraza M.D.; Location: [facility] ??? CORONARY ANGIOPLASTY WITH STENT PLACEMENT N/A 12/19/2011 >1. Percutaneous coronary intervention with drug-eluting stent following a lytics for STEMI (lytics ??? DECOMPRESSION OF MEDIAN NERVE N/A 10/17/2006 Carpal tunnel release ??? EXTRACTION CATARACT WITH INSERTION INTRAOCULAR LENS Right 07/07/2017 Procedure: EXTRACTION CATARACT WITH INSERTION INTRAOCULAR LENS; Surgeon: Raymundo Muniz M.D.; Location: [facility] OR ??? EXTRACTION CATARACT WITH INSERTION INTRAOCULAR LENS Left 07/21/2017 Procedure: EXTRACTION CATARACT WITH INSERTION INTRAOCULAR LENS; Surgeon: Raymundo Muniz M.D.; Location: [facility] OR ??? MOHS SURGERY N/A 06/23/2006 >Mohs Micrographic Surgery With Layered Closure. ??? OTHER SURGICAL HISTORY N/A 08/21/1999 Endarterectomy and angioplasty of neck artery Prior Hospitalization: 01/25/20-01/26/20 Reverse TSA Obey Vines is a 80 y.o. male who presents to outpatient physical therapy for evaluation. His symptoms consist of: 1. Left shoulder pain Overall he reports his status is improving . History of Present Illness: Patient is s/p a reverse left TSA performed on 01/25/[address] Marv Dodson. He is home and doing well. He does not feel he needs PT. He reports he had his right shoulder done and did not need PT with that one. He prefers to do as much with a home program as possible. Aggravating Factors: movement Relieving Factors: pain medication and rest Prior Level of Function: chronic shoulder pain Patient goals: to achieve functional ROM and strength OBJECTIVE PHYSICAL EXAM Pain: low levels of pain with movement and no pain at rest Ortho Exam Patient had removed the surgical dressing. Observation of incision site shows no sign of infection. Homans Test negative. PROM Left shoulder flexion 90 degrees, shoulder elevation 90 degrees both in the plane of the scapula, ER to neutral. Patient demonstrates full ROM at the elbow and hand. Limitations in wrist ROM due to an old injury. TREATMENT Treatment today consisted of: Reviewed current restrictions include no AROM, avoid hyper extension, shoulder extension combined with abduction or internal rotation, no active range of motion, no internal rotation passive range of motion and no lifting. Initiated home exercises to be added to his current hand, elbow and wrist ROM. Exercises included pendulum and table slides 3 x 10 reps. Home Exercise Program/Education: Patient provided a written handout with illustrations. Contact monitoring: PPE used during therapy: Therapist was wearing the following PPE throughout entire session: surgicalmask and eye protection Patient was wearing a mask during therapy session: yes Family member/caregiver present was wearing a mask: yes Additional Staff Present During Session: no Assessment Clinical Impression: Mr. Vines presents to physical therapy with signs and symptoms consistent with reverse TSA. Impairments: decreased ROM and strength. Functional Deficits: No functional use of the left UE due to restrictions. Rehab Potential: Mr. Vines has good potential to achieve established physical therapy goals within the time frame outlined below, provided he actively participates in his physical therapy treatment planand home program. Functional Goals and Timeframes: PT Goal #1: Patient will restore full passive range of motion. PT Goal #1 Date: 05/04/20 PT Goal #2: Patient will demonstrate active shoulder flexion to 150?? without compensation. PT Goal #2 Date: 05/04/20 PT Goal #3: Patient will be able to activate all components with deltoid and periscapular muscles. PT Goal #3 Date: 05/04/20 Plan Mr. Vines was educated regarding evaluative findings, diagnosis, prognosis, potential risks and benefits of rehabilitation interventions. A collaborative effort was used to establish goals and plan of care. He was informed of his right to make decisions regarding his care, including refusal of examination or treatment or selection of services from another provider if desired. The treatment plan may beprogressed or modified based upon his response to treatment. Treatment Plan: Start of Plan of Care: 02/07/2020 Number of Visits: 12 visits PT Duration: 12 weeks PT Frequency: 1x/week Treatment interventions may include: pt education, home program, ROM, stretching and strengthening. Plan for next session: Progression of home program. Time Spent with Patient PT Evaluation (min): 25 min Time Calculation Total Treatment Time (min): 25 min Arti Lundberg P.T. Department of Rehabilitation Services in [address] [phone] Dept: [phone] documented in this encounter Plan of Treatment Not on filedocumented as of this encounter Visit Diagnoses Diagnosis Aftercare Total Shoulder Arthroplasty documented in this encounter Additional Health Concerns Assessment Noted Time PHQ-9 Depression Total Score: 2 03/08/2015 11:16 AM CS T documented as of this encounter Care Teams Merchandise Collector Relationship Specialty Start Date End Date Silver Givens M.D. PCP - General Family Medicine 11/10/19 12/09/[address] [phone] documented as of this encounter
--- OUTSIDE RECORDS SUMMARY | 2021-12-17 09:46 | XMS_ITS | Encounter Summary ---
:1940 Author Organization [facility] Address [address] [place] [address] Care Team Providers Name Role Phone Silver Givens M.D. Primary Care Provider Reason for Visit Reason Comments Post Hospital Follow-up [facility] Encounter Details Date Type Department Care Team Description 01/27/2020 Clinical Communication Department of Silver Givens [facility] Family MedicineMarisela Follow-up ([address]) Clinic, in [address] [phone] [facility] [phone] [place], [place] (Work) [phone] Social History Tobacco Use Types Packs/Day Years Used Date Smoking Tobacco: Former Smokeless Tobacco: Never Alcohol Use Standard Drinks/Week Comments No 0 (1 standard drink = 0.6 oz pure alcoho l) Sex Assigned at Date Recorded Not on file documented as of this encounter Miscellaneous Notes Telephone Encounter - Prachi Davis R.N. - 01/27/2020 9:07 AM CDT SUBJECTIVE REASON FOR CALL Post-Hospital follow-up phone call with patient. 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 General Health Notes today that he is feeling better since discharged from the hospital. Concerns/questions: Patient has no questions or concerns. Symptom Review Pain: Reports acute pain in left shoulder incision area. Describes the pain as achy, with an intensity of 4. Contributing factors include recent surgery. The patient has tried Tramadol, which has been helpful. Activities of Daily Living Patient needs partial assistance with grooming , upper body dressing , lower body dressing and bathing/showering . Has the patient had a fall since discharge: no. Has ambulation changed since hospitalization: no. Difficulty ambulating: no. The patient lives with spouse. Patient identified if needing assistance, he could depend on . Wounds/Incisions/Lines, Drains and Airways Incision: left shoulder incision. Signs or symptoms of infection: no. Incision care instructions reviewed: yes. Medication Status Current medication list was reviewed and updated as needed. Reports medication is self managed. Medications concerns: none. Medication compliance for current medications: yes. High Risk Medications Controlled Substances: Name: Tramadol. Taking as instructed: yes. Experiencing side effects: no. This medication was added during this hospital stay: yes.. Anticoagulants: type: Plavix. Diagnosis for the anticoagulant: CVD and CVA. This is a new start: no. Taking as instructed: yes. Signs and symptoms of bleeding: no. Home Services Utilized The patient is not currently receiving home health services. Equipment/Supplies for Home Use None ordered Assessment/Plan Follow-up Appointment PCP Follow-up appointment scheduled: patient refused. Specialty Follow-up scheduled with ortho 02/09/20 and PT 02/07/20. Recommendations Referral actions: none needed at this time. Additional recommendations: home care instructions reinforced or provided. Disposition/Recommendation: recommended continue engagement in self-management activities. Education: patient/caller able to teach back. Caller agreeable to plan of care: yes. Telephone Encounter - Emilee Andersen R.N. - 01/27/2020 8:12 AM CDT Discharge date 01/26/20 at 1051. Reason for hospitalization ARTHROPLASTY TOTAL REVERSE SHOULDER-. Follow up scheduled for ORS only 02/09/20. documented in this encounter Plan of Treatment Not on filedocumented as of this encounter Visit Diagnoses Not on filedocumented in this encounter Additional Health Concerns Assessment Noted Time PHQ-9 Depression Total Score: 2 03/08/2015 11:16 AM CS T documented as of this encounter Care Teams Director Of Hemophilia Relationship Specialty Start Date End Date Silver Givens M.D. PCP - General Family Medicine 11/10/19 12/09/[address] [place] [phone] documented as of this encounter
--- OUTSIDE RECORDS SUMMARY | 2021-12-17 09:46 | XMS_ITS | Encounter Summary ---
:1940 Author Organization [facility] Address [address] [place] [address] Care Team Providers Name Role Phone Silver Givens M.D. Primary Care Provider Encounter Details Date Type Department Care Team Description 06/19/2020 Orders Only [facility] PCP [facility] YARIELT Sa lindy Kirkland M.D. [address] [place], [place] [phone] (Wo rk) Social History [...] documented as of this encounter Care Teams Senior Production Planner Relationship Specialty Start Date End Date Silver Givens M.D. PCP - General Family Medicine 11/10/19 12/09/[id number] [phone] documented as of this encounter
--- OUTSIDE RECORDS SUMMARY | 2021-12-17 09:46 | XMS_ITS | Encounter Summary ---
:1940 Author Organization [facility] Address [address] [place] [address] Care Team Providers Name Role Phone Silver Givens M.D. Primary Care Provider Encounter Details Date Type Department Care Team Description 11/30/2021 [facility] Laila Loco Pain Chest (Primary AND CLINICS M, C.N.P. Dx) [address] [facility] [address] [place] [address] [phone] Social History Tobacco Use Types Packs/Day Years Used Date Smoking Tobacco: Former Smokeless Tobacco: Never Alcohol Use Standard Drinks/Week Comments No 0 (1 standard drink = 0.6 oz pure alcoho l) Sex Assigned at Date Recorded Not on file documented as of this encounter Plan of Treatment Not on filedocumented as of this encounter Visit Diagnoses Diagnosis Pain Chest - Primary documented in this encounter Additional Health Concerns Infection Onset Date Last Indicated Resolved Time COVID19 Pending 12/04/2021 12/04/2021 12/04/2021 3:27 PM CDT COVID19 Pending 12/07/2021 12/07/2021 12/07/2021 4:30 PM CDT Assessment Noted Time PHQ-9 Depression Total Score: 2 03/08/2015 11:16 AM CS T documented as of this encounter Care Teams Front Desk Receptionist Relationship Specialty Start Date End Date Silver Givens M.D. PCP - General Family Medicine 11/10/19 12/09/[address] [place] [phone] documented as of this encounter
--- OUTSIDE RECORDS SUMMARY | 2021-12-17 09:46 | XMS_ITS | Encounter Summary ---
:1940 Author Organization [facility] Address [address] [place] [address] Care Team Providers Name Role Phone Silver Givens M.D. Primary Care Provider Reason for Visit Reason Comments Post-op Outpatient (Routine) - Closed Specialty Diagnoses / Procedures Referred By Contact Refer red To Contact Orthopedic Surgery Laine Day, P.A. -C. [facility] [address] [facility] [place] [phone] Referral ID Status Reason Start Date Expiration Date Visits Requ ested Visits Authorized [id number] Closed 02/09/2020 02/08/2021 1 1 Encounter Details Date Type Department Care Team Description 03/08/2020 Office Visit Department of Laine Day, Follow Up E xamination Orthopedic Surgery in [place] Postoperative Visit [place], [place] [address] [place] [address] (Primary Dx) [address] [place] [phone] Social History Tobacco Use Types Packs/Day Years Used Date Smoking Tobacco: Former Smokeless Tobacco: Never Alcohol Use Standard Drinks/Week Comments No 0 (1 standard drink = 0.6 oz pure alcoho l) Sex Assigned at Date Recorded Not on file documented as of this encounter Progress Notes Laine Day P.A.-C. - 03/08/2020 10:00 AM CST CHIEF COMPLAINT/REASON FOR VISIT Follow up shoulder replacement. HISTORY OF PRESENT ILLNESS Mr. Vines is a 80-year-old gentleman presents to clinic today for postop appointment status post leftreverse total shoulder by Dr. Dodson on 01/25/2020. He has been doing well since the surgery, attending formal therapy. His range of motion has been improving. He is happy with his results thus far. Denies numbness, tingling, fevers, chills. OBJECTIVE PHYSICAL EXAMINATION General: Alert and oriented x3, no distress. Musculoskeletal: Skin is intact. Sensation to light touch intact. Capillary refill less 3 seconds. Palpable radial pulse. He has range of motion today to 120 degrees of forward elevation. He can do gentle internal-external rotation. End of range was not tested. He has an incision that is healed appropriately. No concerning signs or symptoms today. ASSESSMENT / PLAN #1 Status post left reverse total shoulder 01/25/2020 PLAN: At his appointment today, we discussed plan. He will continue to advance as pain and strength allow within the restrictions for reverse total shoulder, and return to clinic at a year out for radiographs and recheck, sooner if there is problems or concerns. We did obtain radiographs today and these were reviewed with the patient. SHIELD REPAIR TECHNICIAN documented in this encounter Plan of Treatment Not on filedocumented as of this encounter Results DX Shoulder Left 2+ Views (03/08/2020 9:49 AM WINDSHIELD REPAIR TECHNICIAN) Anatomical Region Laterality Modality Upper Extremity, Shoulder, Musculoskeletal RST LOS, Left Digital Radiography Musculoskeletal ARZ LOS, Muskuloskeletal FLA LOS Specimen (Source) Anatomical Collection Method Collection Time Re ceived Time Location / / Volume Laterality 03/08/2020 9:51 AM WINDSHIELD REPAIR TECHNICIAN Impressions 03/08/2020 9:54 AM WINDSHIELD REPAIR TECHNICIAN Left total reverse shoulder arthroplasty hardware components appear well seated and intact. No dislocation. Negative for acute fracture. Aortic calcifications. Thoracic spondylosis. Co mparison December 15, 2019. Narrative 03/08/2020 9:54 AM WINDSHIELD REPAIR TECHNICIAN EXAM: DX SHOULDER LEFT 2+ VIEWS Procedure Note Juan Manuel Pierce M.D. - 03/08/2020Formattin g of this note might be different from the original. EXAM: DX SHOULDER LEFT 2+ VIEWS IMPRESSION: Left total reverse shoulder arthroplasty hardware components appear well seated and intact. No dislocation. Negative for acute fracture. Aortic calcifications. Thoracic spondylosis. Co mparison December 15, 2019. [facility] documented in this encounter Visit Diagnoses Diagnosis Follow Up Examination Postoperative Visi t - Primary Follow Up Examination Postoperative Visi t documented in this encounter Additional Health Concerns Assessment Noted Time PHQ-9 Depression Total Score: 2 03/08/2015 11:16 AM CS T documented as of this encounter Care Teams Harbor Boat Pilot Relationship Specialty Start Date End Date Silver Givens M.D. PCP - General Family Medicine 11/10/19 12/09/[address] [place] [phone] documented as of this encounter
--- OUTSIDE RECORDS SUMMARY | 2021-12-17 09:46 | XMS_ITS | Encounter Summary ---
:1940 Author Organization [facility] Address [address] [place] [address] Care Team Providers Name Role Phone Silver Givens M.D. Primary Care Provider Reason for Referral Outpatient (Routine) - Closed Specialty Diagnoses / Procedures Referred By Contact Refer red To Contact Orthopedic Surgery Laine Day P.A. -C. [address] [phone] Referral ID Status Reason Start Date Expiration Date Visits Requ ested Visits Authorized [id number] Closed 02/09/2020 02/08/2021 1 1 Reason for Visit Reason Comments Follow-up Arthroplasty Outpatient (Routine) - Closed Specialty Diagnoses / Procedures Referred By Contact Refer red To Contact Orthopedic Surgery Marv Dodson M. D. [address] [phone] Referral ID Status Reason Start Date Expiration Date Visits Requ ested Visits Authorized [id number] Closed 12/15/2019 12/14/2020 1 1 Encounter Details Date Type Department Care Team Description 02/09/2020 Office Visit Department of Laine Day, Follow Up E xamination Orthopedic Surgery in [place]. Postoperative Visit Fabricio Kirk [place] [address] (Primary Dx) [address] [place] [phone] Social History Tobacco Use Types Packs/Day Years Used Date Smoking Tobacco: Former Smokeless Tobacco: Never Alcohol Use Standard Drinks/Week Comments No 0 (1 standard drink = 0.6 oz pure alcoho l) Sex Assigned at Date Recorded Not on file documented as of this encounter Progress Notes Laine Day, [place]. - 02/09/2020 10:00 AM CDT CHIEF COMPLAINT/REASON FOR VISIT Follow up total shoulder arthroplasty. HISTORY OF PRESENT ILLNESS Mr. Vines is a 80-year-old gentleman who presents to clinic today for a postop appointment status post left reverse total shoulder by Dr. Dodson on 01/25/2020. He has been doing well since the surgery,tolerating his pain well, needing no narcotic pain medications, attending physical therapy once. He was advancing and doing so well that they did not want him to come back for some time. He had no physical therapy on his contralateral shoulder replacement. He states that he is less painful than beforethe surgery. He is extremely happy with his results thus far. Is, if anything, overdoing it. He did say that the physical therapist told him that he needed to slow down. He does feel like he is doingquite a bit. Denies numbness, tingling, fevers, chills. OBJECTIVE PHYSICAL EXAMINATION General: Alert, oriented, no distress. Skin: Intact, sensation to light touch intact. Capillary refill less than 3 seconds. Palpable radial pulse. He forward elevates actively on his own to about 100 degrees, maybe a little bit past this. Good internal-external rotation, the ends of range were not tested today. He has really no pain on exam. No excess erythema or warmth. No signs of infection. ASSESSMENT / PLAN #1 Status post left reverse total shoulder arthroplasty 01/25/2020 PLAN: At his appointment today, we discussed continuing with plan. He will continue to advance per protocol. We did discuss slowing down his activity a little bit, really obeying the precautions, and having him return to clinic for radiographs and recheck in 4 weeks. Ultimately, he understands this, will stick to his protocol. Return as discussed, sooner p.r.n. All of his questions and concerns were answered today. documented in this encounter Plan of Treatment Scheduled Referrals Name Type Priority Associated Order Schedule Diagnoses Orthopedic Surgery Outpatient Referral Routine Ex pected: Post Op (clinic) 03/11/2020, Expires: 02/08/2023 documented as of this encounter Visit Diagnoses Diagnosis Follow Up Examination Postoperative Visi t - Primary documented in this encounter Additional Health Concerns Assessment Noted Time PHQ-9 Depression Total Score: 2 03/08/2015 11:16 AM CS T documented as of this encounter Care Teams Sparmaker Relationship Specialty Start Date End Date Silver Givens M.D. PCP - General Family Medicine 11/10/19 12/09/[address] [place] [phone] documented as of this encounter
--- OUTSIDE RECORDS SUMMARY | 2021-12-17 09:46 | XMS_ITS | Encounter Summary ---
:[address] [facility] Address [address] [place] [address] Care Team Providers Name Role Phone Silver Givens M.D. Primary Care Provider Reason for Visit Reason Comments Med Refill Encounter Details Date Type Department Care Team Description 03/07/2020 Refill Department of Family Medicine, Silver Ramírez M.D. Med Refill [facility], in [place] [phone] [phone] [place], [place] [phone] Social History Tobacco Use Types Packs/Day Years Used Date Smoking Tobacco: Former Smokeless Tobacco: Never Alcohol Use Standard Drinks/Week Comments No 0 (1 standard drink = 0.6 oz pure alcoho l) Sex Assigned at Date Recorded Not on file documented as of this encounter Miscellaneous Notes Telephone Encounter - Shelly Augustine I - 03/07/2020 9:45 AM CST Name of Medication: Pantoprazole Primary Provider: Silver Givens M.D., Ph.D. Strength: 40mg Frequency: Take 40 mg by mouth daily. [facility] Patient is out of medication AND DIE MAKER/DESIGNER documented in this encounter Plan of Treatment Not on filedocumented as of this encounter Visit Diagnoses Not on filedocumented in this encounter Additional Health Concerns Assessment Noted Time PHQ-9 Depression Total Score: 2 03/08/2015 11:16 AM CS T documented as of this encounter Care Teams Senior Packaging Engineer Relationship Specialty Start Date End Date Silver Givens M.D. PCP - General Family Medicine 11/10/19 12/09/[address] [place] [phone] documented as of this encounter
--- OUTSIDE RECORDS SUMMARY | 2021-12-17 09:46 | XMS_ITS | Encounter Summary ---
:[address] [facility] Address [address] [place] [address] Care Team Providers Name Role Phone Silver Givens M.D. Primary Care Provider Encounter Details Date Type Department Care Team Description 09/29/2020 Hospital Encounter Department of Wood Car, Gastroenterology in [place], [place] [address] [place] [address] [phone] Social History Tobacco Use Types Packs/Day Years Used Date Smoking Tobacco: Former Smokeless Tobacco: Never Alcohol Use Standard Drinks/Week Comments No 0 (1 standard drink = 0.6 oz pure alcoho l) Sex Assigned at Date Recorded Not on file documented as of this encounter Last Filed Vital Signs Vital Sign Reading Time Taken Comments Blood Pressure 98/68 09/29/2020 11:15 AM CDT Pulse 101 09/29/2020 11:15 AM CDT Temperature 36.6 ??C (97.9 ??F) 09/29/2020 10:59 AM CDT Respiratory Rate 16 09/29/2020 10:59 AM CDT Oxygen Saturation 96% 09/29/2020 11:15 AM CDT Inhaled Oxygen Concentration - - Weight 70 kg (154 lb 5.2 oz) 09/29/2020 10:07 AM CDT Height - - Body Mass Index 24.91 01/25/2020 4:33 PM CDT documented in this encounter Medications at Time of Discharge Medication Sig Dispensed Refills Start Date End Date aspirin-calcium carbonate Take 1 tablet by 0 81 mg-300 mg calcium(777 mouth. mg) tablet atorvastatin Take 80 mg by mouth 0 01/27/2017 (for_LIPITOR) 80 mg daily. tablet pantoprazole (PROTONIX) Take 1 tablet (40 mg 90 tablet 3 40 mg EC tablet total) by mouth daily. ZETIA 10 mg tablet Take 10 mg by mouth 0 01/09/20 17 daily. metoprolol succinate Take 0.5 tablets 15 tablet 0 9 (TOPROL-XL) 25 mg 24 hr (12.5 mg total) by tablet mouth daily. nitroglycerin Place 1 tablet under 0 06/25/2016 0 11/30/2021 (for_NITROSTAT) 0.4 mg SL the tongue every 5 tablet (five) minutes as needed for chest pain. acetaminophen (TYLENOL) Take 2 tablets 90 tablet 2 01/26/20 20 08/20/2021 500 mg tablet (1,000 mg total) by mouth every 6 (six) hours. clopidogreL (PLAVIX) 75 Take 75 mg by mouth. 0 08/20/2021 mg tablet docusate sodium 100 mg Take 100 mg by mouth 0 08/20/2021 capsule daily. sennosides-docusate Take 1 tablet by 90 tablet 0 01/26/2020 08/20/2021 sodium (SENOKOT-S) 8.6-50 mouth 2 (two) times mg per tablet a day as needed for constipation. traMADoL (ULTRAM) 50 mg Take 1 tablet (50 mg 30 tablet 0 08/20/2021 tabletIndications: total) by mouth Prolonged Acute every 6 (six) hours Pain/Traumatic Injury as needed for moderate pain or score 4-6 of 10 Indications: Prolonged Acute Pain/Traumatic Injury. documented as of this encounter Procedure Notes Wood Car M.D. - 09/29/2020 10:14 AM CDTAssociated Order(s): [facility] Patient Name: Obey Vines Procedure Date: 09/29/2020 10:14 AM Date of : 1940 Age: 80 Gender: Male Procedure: Upper GI endoscopy Providers: Wood Car MD, Coy Forbes (Ordering Provider) Referring Provider: Coy Forbes Pre-op Diagnoses: Iron deficiency anemia Post-op Diagnoses: - Normal examined duodenum. Diverticulum 2nd portion. - Non-bleeding erosive gastropathy. Biopsied. - Multiple gastric polyps. Biopsied. None bleeding at this time, subcentimeter - Medium-sized hiatal hernia. 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 Biopsied. - The examination was otherwise normal. Recommendation: - Await pathology results. Conceivably there could be low-grade ongoing bleeding from gastric fundic gland polyps. Were this to continue I would recommend consideration of EGD with polypectomy. - Repeat upper endoscopy in 1 year for surveillance if biopsies positive for Almeida's esophagus. Findings: The examined duodenum was normal. Exception was a duodenal diverticulum, 2nd portion. A single localized, 5 mm non-bleeding erosion was found in the stomach. There were no stigmata of recent bleeding. Biopsies were taken with a cold forceps for histology. Multiple 3 to 10 mm sessile and pedunculated polyps with no stigmata of recent bleeding were found in the gastric body. Biopsies were taken with a cold forceps for histology. A medium-sized hiatal hernia was present. There were esophageal mucosal changes suspicious for long-segment Almeida's esophagus present in the lower third of the esophagus. The maximum longitudinal extent of these mucosal changes was 3 cm in length. This was biopsied with a cold forceps for histology. The exam was otherwise without abnormality. Medicines: Monitored Anesthesia Care Estimated Blood Loss: Estimated blood loss: none. Complications: No immediate complications. Procedure Details: The patient was seen, evaluated, and history reviewed. Airway and heart and lung exams were performed and were satisfactory for planned sedation care. The risks, benefits and alternatives for the procedure and sedation were discussed and informed consent was obtained. A procedural pause was conducted in the presence of assisting personnel to verify the correct patient identity and procedure to be performed. Throughout the procedure, the patient's blood pressure, pulse, and oxygen saturations were monitored continuously. The Endoscope was introduced under direct vision through the mouth, and advanced to the second part of duodenum. The upper GI endoscopy was accomplished without difficulty. The patient tolerated the procedure well. Sedation: Anesthesia was administered by an anesthesia professional. The following parameters were monitored: oxygen saturation, heart rate, blood pressure, respiratory rate, EKG, adequacy of pulmonary ventilation, and response to care. Wood Car MD 09/29/2020 10:57:13 AM This report has been signed electronically. Number of Addenda: 0 Note Initiated On: 09/29/2020 10:14 AM Wood Car M.D. - 09/29/2020 10:10 AM CDTAssociated Order(s): COLONOSCOPY [facility] Patient Name: Obey Vines Procedure Date: 09/29/2020 10:10 AM Date of : 1940 Age: 80 Gender: Male Procedure: Colonoscopy Providers: Wood Car MD, Coy Forbes (Ordering Provider) Referring Provider: Coy Forbes Pre-op Diagnoses: Positive fecal immunochemical test Post-op Diagnoses: - Two 4 to 6 mm polyps in the rectum and in the transverse colon, removed with a cold snare. Resected and retrieved. - Diverticulosis in the sigmoid colon. - The examination was otherwise normal on direct and retroflexion views. Recommendation: - Await pathology results. - Repeat colonoscopy is not recommended due to current age (66 years or older) for surveillance. Findings: The perianal and digital rectal examinations were normal. Two sessile polyps were found in the rectum and transverse colon. The polyps were 4 to 6 mm in size. These polyps were removed with a cold snare. Resection and retrieval were complete. Many small-mouthed diverticula were found in the sigmoid colon. The exam was otherwise without abnormality on direct and retroflexion views. Medicines: Monitored Anesthesia Care Estimated Blood Loss: Estimated blood loss: none. Complications: No immediate complications. Procedure Details: The patient was seen, evaluated, and history reviewed. Airway and heart and lung exams were performed and were satisfactory for planned sedation care. The risks, benefits and alternatives for the procedure and sedation were discussed and informed consent was obtained. A procedural pause was conducted in the presence of assisting personnel to verify the correct patient identity and procedure to be performed. Throughout the procedure, the patient's blood pressure, pulse, and oxygen saturations were monitored continuously. The Colonoscope was introduced under direct vision through the anus and advanced to the terminal ileum. The colonoscopy was performed without difficulty. The patient tolerated the procedure well. The quality of the bowel preparation was evaluated using the BBPS ([place] Bowel Preparation Scale) with scores of: Right Colon = 3, Transverse Colon = 3 and Left Colon = 3 (entire mucosa seen well with no residual staining, small fragments of stool or opaque liquid). The total BBPS score equals 9. Sedation: Anesthesia was administered by an anesthesia professional. The following parameters were monitored: oxygen saturation, heart rate, blood pressure, respiratory rate, EKG, adequacy of pulmonary ventilation, and response to care. Wood Car MD 09/29/2020 10:59:24 AM This report has been signed electronically. Number of Addenda: 0 Note Initiated On: 09/29/2020 10:10 AM documented in this encounter Plan of Treatment Not on filedocumented as of this encounter Procedures Procedure Name Priority Date/Time Associated Comments Diagnosis SURGICAL PATHOLOGY Routine 09/29/2020 10:31 Resul ts for this AM CDT procedure are i n the results section. ESOPHAGOGASTRODUODENOSCOPY 09/29/2020 10:28 Anemia Iro n AM CDT Deficiency Blood Loss Chronic Stool Positive Occult Blood COLONOSCOPY 09/29/2020 10:28 Anemia Iron AM CDT Deficiency Blood Loss Chronic Stool Positive Occult Blood UPPER GI ENDOSCOPY 09/29/2020 10:14 Resul ts for this AM CDT procedure are i n the results section. COLONOSCOPY 09/29/2020 10:10 Results for this AM CDT procedure are i n the results section. documented in this encounter Results Surgical Pathology (09/29/2020 10:31 AM CDT) Component Value Ref Test Analysis Performed At [facility] Method Time Signature 10/04/2020 ECLR 8:26 AM CDT Report Rodrigo Taylor 10/04/2020 ECLR electronically Santiago, M.D. 8:26 AM CDT signed by Specimen Received A. ??Stomach antrum biopsy, r/o Helicobacter pylo ri 10/04/2020 ECLR B. ??Body of stomach polyp 8:26 AM CDT C. ??Lower third esophagus biopsy, r/o Almeida's D. ??Transverse colon polyp E. ??Rectum polyp Clinical History Anemia iron deficiency blood loss chronic; stool p ositive 10/04/2020 ECLR occult blood 8:26 AM CDT Gross Description A: ?? Received in a container labeled stomach -antrum are 2 10/04/2020 ECLR tissues, 0.3 cm to 0.4 cm. All submitted in cassette A1. B: 8:26 AM CDT ??Received in a container labeled stomach-body of stomach is a 0.5 cm in greatest dimension portion of tissue. All submitted in cassette B1. C: ??Received in a container labeled esophagus-lower 3rd esophagus are 3 tissues, 0.2 cm to 0.5 cm. All submitted in cassette C1. D: ??Received in a container labeled transverse colon is a 1.2 cm in greatest dimension portion of tissue. All submitted in cassette D1. E: ??Received in a container labeled rectum is an aggregate of tissue that measures 1.5 x 0.6 x 0.2 cm. The tissue has been filtered and appears as fragments of wong tissue. ??All submitted in cassette E1. [id number] Interpretation FINAL DIAGNOSIS 10/04/2020 ECLR A. Stomach, biopsy: ??Normal antral mucosa. ??Negative for 8:26 AM CDT Helicobacter pylori. B. Stomach, body, biopsy: ??Gastric fundic gland polyp. C. Esophagus, lower 3rd, biopsy: ??Specialized Almeida's mucosa. ??Negative for dysplasia. D. Colon, transverse, biopsy: ??Normal colonic mucosa. B. Colon, rectum, biopsy: ??Tubular adenoma and hyperplastic polyp. Specimen (Source) Anatomical Collection Method Collection Time Re ceived Time Location / / Volume Laterality Biopsy (Stomach) 09/29/2020 10:31 AM CDT Biopsy (Stomach) 09/29/2020 10:33 AM CDT Biopsy 09/29/2020 10:34 (Esophagus) AM CDT Polyp (Colon) 09/29/2020 10:50 AM CDT Polyp (Rectum) 09/29/2020 10:54 AM CDT Narrative This result has an attachment that is no t available. Wood Car M.D. LAB SURG PATH ORDERABLES Performing Organization Address City/State/ZIP Code Phon e Number [facility]- [address] [place] [address] [phone] [facility] [place] [address] System in [place] [address] [place] [address] UPPER GI ENDOSCOPY (09/29/2020 10:14 AM CDT) Specimen (Source) Anatomical Location Collection Method / Collectio n Time Received Time / Laterality Volume Narrative This result has an attachment that is no t available. Procedure Note Wood Car M.D. - 09/29/2020 10:14 AM CDT [facility] Patient Name: Obey Vines Procedure Date: 09/29/2020 10:14 AM Date of : 1940 Age: 80 Gender: Male Procedure: Upper GI endoscopy Providers: Wood Car MD, Coy Forbes (Ordering Provider) Referring Provider: Coy Forbes Pre-op Diagnoses: Iron deficiency anemia Post-op Diagnoses: - Normal examined duodenum. Diverticulu m 2nd portion. - Non-bleeding erosive gastropathy. Bio psied. - Multiple gastric polyps. Biopsied. No ne bleeding at this time, subcentimeter - Medium-sized hiatal hernia. 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 Biopsied. - The examination was otherwise normal. Recommendation: - Await pathology results. Conceivably there could be low-grade ongoing bleeding from gastric fundic gland poly ps. Were this to continue I would recommend consideration of EGD with jayleen ypectomy. - Repeat upper endoscopy in 1 year for surveillance if biopsies positive for Almeida's esophagus. Findings: The examined duodenum was normal. Excep tion was a duodenal diverticulum, 2nd portion. A single localized, 5 mm non-bleeding e rosion was found in the stomach. There were no stigmata of recent bleedi ng. Biopsies were taken with a cold forceps for histology. Multiple 3 to 10 mm sessile and peduncu lated polyps with no stigmata of recent bleeding were found in the gastr ic body. Biopsies were taken with a cold forceps for histology. A medium-sized hiatal hernia was presen t. There were esophageal mucosal changes s uspicious for long-segment Almeida's esophagus present in the lowe r third of the esophagus. The maximum longitudinal extent of these mu cosal changes was 3 cm in length. This was biopsied with a cold forceps f or histology. The exam was otherwise without abnormal ity. Medicines: Monitored Anesthesia Care Estimated Blood Loss: Estimated blood lo ss: none. Complications: No immediate complication s. Procedure Details: The patient was seen, evaluated, and history reviewed. Airway and heart and lung exa ms were performed and were satisfactory for suhail nned sedation care. The risks, benefits and alternatives fo r the procedure and sedation were discussed a nd informed consent was obtained. A procedural paus e was conducted in the presence of assisting personnel to verify the correct patient identity and procedure to be performed. Throughout the procedure, the patient's blood pressure, pulse, and ox ygen saturations were monitored continuously . The Endoscope was introduced under dire ct vision through the mouth, and advanced to the second part of duodenum. The upper GI endoscopy was accomplished without difficulty. The patient tolerat ed the procedure well. Sedation: Anesthesia was administered by an anest hesia professional. The following parameters were monitored: oxygen satur ation, heart rate, blood pressure, respiratory rate, EKG, adequa cy of pulmonary ventilation, and response to care. Wood Car MD 09/29/2020 10:57:13 AM This report has been signed electronical ly. Number of Addenda: 0 Note Initiated On: 09/29/2020 10:14 AM Coy Forbes M.D. GI PROCEDURE ORDERABLES COLONOSCOPY (09/29/2020 10:10 AM CDT) Specimen (Source) Anatomical Location Collection Method / Collectio n Time Received Time / Laterality Volume Narrative This result has an attachment that is no t available. Procedure Note Wood Car M.D. - 09/29/2020 10:10 AM CDT [facility] Patient Name: Obey Vines Procedure Date: 09/29/2020 10:10 AM Date of : 1940 Age: 80 Gender: Male Procedure: Colonoscopy Providers: Wood Car MD, Coy Forbes (Ordering Provider) Referring Provider: Coy Forbes Pre-op Diagnoses: Positive fecal immunoc hemical test Post-op Diagnoses: - Two 4 to 6 mm polyps in the rectum an d in the transverse colon, removed with a cold snare. Resected and retrieved. - Diverticulosis in the sigmoid colon. - The examination was otherwise normal on direct and retroflexion views. Recommendation: - Await pathology results. - Repeat colonoscopy is not recommended due to current age (66 years or older) for surveillance. Findings: The perianal and digital rectal examina tions were normal. Two sessile polyps were found in the re ctum and transverse colon. The polyps were 4 to 6 mm in size. These po lyps were removed with a cold snare. Resection and retrieval were com plete. Many small-mouthed diverticula were fou nd in the sigmoid colon. The exam was otherwise without abnormal ity on direct and retroflexion views. Medicines: Monitored Anesthesia Care Estimated Blood Loss: Estimated blood lo ss: none. Complications: No immediate complication s. Procedure Details: The patient was seen, evaluated, and history reviewed. Airway and heart and lung exa ms were performed and were satisfactory for suhail nned sedation care. The risks, benefits and alternatives fo r the procedure and sedation were discussed a nd informed consent was obtained. A procedural paus e was conducted in the presence of assisting personnel to verify the correct patient identity and procedure to be performed. Throughout the procedure, the patient's blood pressure, pulse, and ox ygen saturations were monitored continuously . The Colonoscope was introduced under di rect vision through the anus and advanced to the te rminal ileum. The colonoscopy was performed without d ifficulty. The patient tolerated the procedure wel l. The quality of the bowel preparation was ev aluated using the BBPS ([place] Bowel Preparation Scal e) with scores of: Right Colon = 3, Transverse Colon = 3 and Left Colon = 3 (entire mucosa seen well with no residual staining, small fragments of s tool or opaque liquid). The total BBPS score eq uals 9. Sedation: Anesthesia was administered by an anest hesia professional. The following parameters were monitored: oxygen satur ation, heart rate, blood pressure, respiratory rate, EKG, adequa cy of pulmonary ventilation, and response to care. Wood Car MD 09/29/2020 10:59:24 AM This report has been signed electronical ly. Number of Addenda: 0 Note Initiated On: 09/29/2020 10:10 AM Coy Forbes M.D. GI PROCEDURE ORDERABLES documented in this encounter Visit Diagnoses Diagnosis Anemia Iron Deficiency Blood Loss Chroni c Stool Positive Occult Blood documented in this encounter Admitting Diagnoses Diagnosis Anemia Iron Deficiency Blood Loss Chroni c Stool Positive Occult Blood documented in this encounter Additional Health Concerns Assessment Noted Time PHQ-9 Depression Total Score: 2 03/08/2015 11:16 AM CS T documented as of this encounter Care Teams Media Analyst Relationship Specialty Start Date End Date Silver Givens M.D. PCP - General Family Medicine 11/10/19 12/09/[address] [place] [address] [phone] documented as of this encounter
--- OUTSIDE RECORDS SUMMARY | 2021-12-17 09:46 | XMS_ITS | Encounter Summary ---
:1940 Author Organization [facility] Address [address] [place] [address] Care Team Providers Name Role Phone Silver Givens M.D. Primary Care Provider Encounter Details Date Type Department Care Team Description 09/29/2020 Anesthesia Event Department of Vernon Santa APRN, LAYAWAY CLERK [address] [place] [address] Gastroenterology in [facility] Christa Burt M.D. [address] [place] [address] [phone] Anesthesia Record Procedure Summary Procedure Name Responsible Anesthesiologist Anesthesia Start Ti me Anesthesia Stop Time COLONOSCOPY-P Yordy Santa APRN, 09/29/20 1025 1100 LAYAWAY CLERK Events Date Time Event Comment 09/29/2020 1022 1025 An Start Machine/Equipmen t Checked Infection Precautions Foll owed Procedure/Site Verified NPO Sta tus Verified Supine Standard ASA Mon itors Applied 1025 Turnover to Proceduralist 1030 Proc Start 1037 Proc Fin 1057 Turnover to ANE Staff 1057 an stop data 1100 An End I completed my h andoff to the receiving staff during i ch we 1. Identified the patient 2. Ident ified the responsible provider 3. Revi ewed the pertinent medical history 4. Discu ssed the surgical course 5. Reviewed intra-o p anesthesia management and issues during an esthesia 6. Set expectations for post-procedure period 7. Allowed opportun ity for questions and acknowledgement of understanding. Name Total propofol 10 mg/mL injection 20 mg propofol 10 mg/mL infusion 133 mg glycopyrrolate 0.2 mg/mL injection 0.2 mg lidocaine 2% (mg) injection 100 mg lactated ringers free drip 500 mL Agents No agents on file. Blood No blood administrations on file. Lines, Drains, and Airways Type Details Placement Removal (RETIRED) Incision 01/25/20; 1403; Shoulder; 01/25/20 1403 by 1418 by Left; bhavani, maribeling; Brandi Millard, [facility] inic-Backgroun 01/23/21 (Removed by Liu Presley background completion Automated Batch Job utility); 141 (Removed by background completion utility) Peripheral IV Placement Date: 09/29/20; 09/29/20 1020 by 11/30 0000 by Placement Time: 1020; Nita Lazo, Yosi Cam Jr., Catheter Size: 22 G; R.N. R.N. Orientation: Left; Location: Hand; Site Prep: Chlorhexidine (Preferred); Technique: Anatomical landmarks; Inserted by: Valeria CORADO; Insertion Attempts: 3; Removal Date: 11/30/21 documented in this encounter Social History Tobacco Use Types Packs/Day Years Used Date Smoking Tobacco: Former Smokeless Tobacco: Never Alcohol Use Standard Drinks/Week Comments No 0 (1 standard drink = 0.6 oz pure alcoho l) Sex Assigned at Date Recorded Not on file documented as of this encounter OR Notes Anesthesia Postprocedure Evaluation - Christa Burt M.D. - 09/29/2020 11:29 AM CDT Patient: Obey Vines Procedure Summary Date: 09/29/20 Room / Location: [address] [facility] - [place] Anesthesia Start: 1025 Anesthesia Stop: 1100 Procedures: COLONOSCOPY-P (N/A ) ESOPHAGOGASTRODUODENOSCOPY (N/A ) Diagnosis: Anemia Iron Deficiency Blood Loss Chronic Stool Positive Occult Blood (Anemia Iron Deficiency Blood Loss Chronic [D50.0]) (Stool Positive Occult Blood [R19.5]) Providers: Wood Car M.D. Responsible Provider: Yordy Santa APRN, CRNA Anesthesia Type: MAC ASA Status: 3 Anesthesia Type: MAC Last vitals Vitals Value Taken Time BP 98/68 09/29/20 1115 Temp 36.6 ??C 09/29/20 1059 Pulse 101 09/29/20 1117 Resp 16 09/29/20 1059 SpO2 97 % 09/29/20 1117 Vitals shown include unvalidated device data. Please reference Vitals flowsheet for most recent vital signs. Anesthesia Post Evaluation Patient Disposition: dismissal Cardiovascular status: hemodynamics (HR & BP) acceptable Respiratory status: patent airway with spontaneous effort Temperature: normothermic Oxygen requirements: room air Level of consciousness: awake Pain score: pain adequately controlled and/or at baseline Post Op nausea/vomiting: none Hydration status: euvolemic Anesthesia Preprocedure Evaluation - Christa Burt M.D. - 09/29/2020 10:21 AM CDT Preprocedure Anesthesia & H&P Assessment Procedure Summary Date/Time: 09/29/20 1030 Procedures: COLONOSCOPY (N/A ) ESOPHAGOGASTRODUODENOSCOPY (N/A ) Diagnosis: Anemia Iron Deficiency Blood Loss Chronic [D50.0] Stool Positive Occult Blood [R19.5] Pre-op diagnosis: Anemia Iron Deficiency Blood Loss Chronic [D50.0] Stool Positive Occult Blood [R19.5] Location: [facility] 1412 / [facility] - [place] Providers: Wood Car M.D. Pertinent components of the patient's history including current problem list, medical history, surgical history, family history, social history, medications and allergies were reviewed. Present illnessand pre-op diagnosis were confirmed. The planned surgery / procedure was verified with the patient /legal guardian. The patient's general health condition remains unchanged RELEVANT COMORBID CONDITIONS CV (+) Atherosclerotic Heart Disease Of [place] Coronary Artery Without Angina Pectoris (+) Peripheral Vascular Disease (HCC) GENETICS (+) Hyperglycemia (+) Hyperlipidemia GI (+) Gastroesophageal Reflux Disease Without Esophagitis Other (+) Stroke Cerebrovascular Accident Personal History S/p stents-off plavix S/p CEA in past OBJECTIVE PHYSICAL EXAMINATION Airway (HEENT) Mallampati: II TM Distance: <3 FB Neck ROM: Limited Mouth Opening: >3 cm Upper Lip Bite Test Class: II Cardiovascular Rhythm: Regular Rate: Normal Cardiovascular Assessment: cardiovascular normal Functional Capacity: >4 METS Pulmonary Pulmonary Assessment: Clear General / Constitutional Constitutional Assessment: Normal General State of Health:: healthy appearing and calm Neurological Neurologic Assessment:??alert Dental Dental Assessment: upper dentures and lower dentures ASSESSMENT / PLAN ANESTHESIA PLAN ASA: 3 Anesthesia Plan: MAC Patient seen and allergies reviewed, anesthesia plan and risks discussed directly with patient /legal guardian or through an president & [employer]o [employer]. The use of blood products not discussed Approval to Proceed: approved for anesthesia documented in this encounter Plan of Treatment Not on filedocumented as of this encounter Visit Diagnoses Not on filedocumented in this encounter Administered Medications Inactive Administered Medications - up to 3 most recent administrations Medication Order MAR Action Action Date Dose Rate Site glycopyrrolate injection Given 09/29/2020 10:26 AM CDT 0.2 mg (ROBINUL) intravenous, As needed, Starting on Fri09/29/20 at 1026, Anesthesia Intra-op lactated ringers New Bag 09/29/2020 10:26 AM CDT intravenous, Continuous Infusion: Per Instructions PRN, Starting on Fri09/29/20 at 1026, Anesthesia Intra-op lidocaine (PF) (cardiac) injection Given 09/29/2020 10:26 AM CDT 100 mg intravenous, As needed, Starting on Fri09/29/20 at 1026, Anesthesia Intra-op propofol 10 mg/mL infusion Rate/Dose 09/29/2020 75 mcg/kg/min 31.5 m L/hr (DIPRIVAN) Change 10:35 AM CDT intravenous, Continuous Infusion: Per Instructions PRN, Starting on Fri09/29/20 at 1030, Anesthesia Intra-op New Bag 09/29/2020 10:30 AM CDT 125 mcg/kg/min 52.5 mL/hr propofoL injection (DIPRIVAN) Given 09/29/2020 10:30 AM CDT 20 mg intravenous, As needed, Starting on Fri09/29/20 at 1030, Anesthesia Intra-op documented in this encounter Additional Health Concerns Assessment Noted Time PHQ-9 Depression Total Score: 2 03/08/2015 11:16 AM CS T documented as of this encounter Care Teams Laundry Machine Tender Relationship Specialty Start Date End Date Silver Givens M.D. PCP - General Family Medicine 11/10/19 12/09/[id number] [place] [phone] documented as of this encounter
--- OUTSIDE RECORDS SUMMARY | 2021-12-17 09:46 | XMS_ITS | Encounter Summary ---
:[address] [facility] Address [address] [place] [address] Care Team Providers Name Role Phone Silver Givens M.D. Primary Care Provider Encounter Details Date Type Department Care Team Description 09/25/2020 Lab Department of Family Deppe, Hailey Mehta Iron Deficiency Medicine, Professional and M.D. Blood Loss Chronic [facility] in [address] [address] [place] [address] [phone] Social History Tobacco Use Types Packs/Day Years [...] Priority Date/Time Associated Diagnosis Comme nts SARS CORONAVIRUS-2 Routine 09/25/2020 8:31 AM Anemia Iron Res ults for this RNA, V CDT Deficiency Blood procedure a re in Loss Chronic the results section. documented in this encounter Results SARS Coronavirus-2 RNA, V Asymptomatic (09/25/2020 8:31 AM CDT) [facility] Method Time Signature SARS-CoV-2 Swab, 09/25/2020 [...] pe rformed using the Aptima SARS-CoV-2 assay ([employer] on the [place] tem under emergency use authorization (EUA) by the U.S. Food and Drug Administ ration. Fact sheets for this EUA assay can be fo und at the following links: For Healthcare Providers: https://www.[employer] a.gov/media/894802/download For Patients: https://www.fda.gov/media/ 356807/download Specimen Anatomical Collection Method Collection Time Receive d Time (Source) Location / / Volume Laterality Varies 09/25/2020 8:31 AM 2:56 (Nasopharynx) CDT PM CDT Wood Car M.D. LAB MICROBIOLOGY - GENERAL O RDMARAHBLES Performing Organization Address City/State/ZIP Code Phon e Number [facility]- [address] [place] [phone] [facility] [place] [address] System [address] documented in this encounter Visit Diagnoses Diagnosis Anemia Iron Deficiency Blood Loss Chroni c documented in this encounter Additional Health Concerns Infection Onset Date Last Indicated Resolved Time COVID19 Pending 09/25/2020 09/25/2020 09/25/2020 8:20 PM CDT Assessment Noted Time PHQ-9 Depression Total Score: 2 03/08/2015 11:16 AM CS T documented as of this encounter Care Teams Program Trainer Relationship Specialty Start Date End Date Silver Givens M.D. PCP - General Family Medicine 11/10/19 12/09/[address] [place] [phone] documented as of this encounter
--- OUTSIDE RECORDS SUMMARY | 2021-12-17 09:46 | XMS_ITS | Encounter Summary ---
:1940 Author Organization [facility] Address [address] [place] [address] Care Team Providers Name Role Phone Silver Givens M.D. Primary Care Provider Encounter Details Date Type Department Care Team Description 03/08/2020 Hospital Encounter Department of Laine Day Follo w Up Examination Radiology in [place] [facility] Postoperative Visit [address] [phone] Social History Tobacco Use Types Packs/Day Years [...] daily. pantoprazole (PROTONIX) Take 1 tablet (40 mg 90 tablet 3 40 mg EC tablet total) by mouth daily. ZETIA 10 mg tablet Take 10 mg by mouth 0 01/09/20 17 daily. acetaminophen (TYLENOL) Take 2 tablets 90 tablet 2 01/26/20 20 08/20/2021 500 mg tablet (1,000 mg total) by mouth every 6 (six) hours. clopidogreL (PLAVIX) 75 Take 75 mg by mouth. 0 08/20/2021 mg tablet docusate sodium 100 mg Take 100 mg by mouth 0 08/20/2021 capsule daily. nitroglycerin Place 1 tablet under 0 06/25/2016 0 11/30/2021 (for_NITROSTAT) 0.4 mg SL the tongue every 5 tablet (five) minutes as needed for chest pain. sennosides-docusate Take 1 tablet by 90 tablet [...] Pain/Traumatic Injury. documented as of this encounter Plan of Treatment Not on filedocumented as of this encounter Procedures Procedure Name Priority Date/Time Associated Diagnosis Comme nts DX SHOULDER LEFT RAD - Routine 03/08/2020 9:49 Follow Up Results for this 2+ VIEWS (most inpatients AM SALESPERSON HANDBAGS Examination procedure a re in and all Postoperative Visit the resu lts outpatients) section. documented in this encounter Results DX Shoulder Left 2+ Views (03/08/2020 9:49 AM SALESPERSON HANDBAGS) Anatomical Region Laterality Modality Upper Extremity, Shoulder, Musculoskeletal RST LOS, Left Digital Radiography Musculoskeletal ARZ LOS, Muskuloskeletal FLA LOS Specimen (Source) Anatomical Collection Method Collection Time Re ceived Time Location / / Volume Laterality 03/08/2020 9:51 AM SALESPERSON HANDBAGS Impressions 03/08/2020 9:54 AM SALESPERSON HANDBAGS Left total reverse shoulder arthroplasty hardware components appear well seated and intact. No dislocation. Negative for acute fracture. Aortic calcifications. Thoracic spondylosis. Co mparison December 15, 2019. Narrative 03/08/2020 9:54 AM SALESPERSON HANDBAGS EXAM: DX SHOULDER LEFT 2+ VIEWS Procedure [...] Diagnosis Follow Up Examination Postoperative Visi t documented in this encounter Additional Health Concerns Assessment Noted Time PHQ-9 Depression Total Score: 2 03/08/2015 11:16 AM CS T documented as of this encounter Care Teams Director Technical Relationship Specialty Start Date End Date Silver Givens M.D. PCP - General Family Medicine 11/10/19 12/09/[address] [place] [phone] documented as of this encounter
--- OUTSIDE RECORDS SUMMARY | 2021-12-17 09:46 | XMS_ITS | Encounter Summary ---
:1940 Author Organization [facility] Address [address] [place] [address] Care Team Providers Name Role Phone Silver Givens M.D. Primary Care Provider Reason for Visit Reason Comments Communication 3 day endoscopy call, covid Encounter Details Date Type Department Care Team Description 09/26/2020 Clinical Department of Carmen Mcdonald (3 day Communication General Surgery in [facility] endoscopy call, [address]) [address] [phone] Social History Tobacco Use Types Packs/Day Years Used Date Smoking Tobacco: Former Smokeless Tobacco: Never Alcohol Use Standard Drinks/Week Comments No 0 (1 standard drink = 0.6 oz pure alcoho l) Sex Assigned at Date Recorded Not on file documented as of this encounter Miscellaneous Notes Telephone Encounter - Carmen Mcdonald L.P.N. - 09/27/2020 10:43 AM CDT Endoscopy 3 Day Phone call Anesthesia Risk Assessment: Do you have an implanted cardiac device? No If yes, instructed to bring card day of procedure. No Last date interrogated: () Do you have difficulties lying flat? No Do you have an episcopalian or other objection to having a blood transfusion? No Medication Review: Anticoagulation: Yes Diabetic: No Prescription pain medication: No Did you get instructions for what medications to hold? Yes Reviewed booklet with patient including prep, procedural expectations, NPO instructions, arrival time and that they need a pile driver: Yes Time patient needs to arrive for procedure: (9:40 AM) Patient verbalizes arrival time and instructions for procedure: Yes If patient is concerned he is not empting pre-procedural, please call the listed number, based on location, the morning of. [phone] [facility] [phone] [facility] [phone] [facility] COVID Screening Questions Does the patient, anyone [...] thesecond vaccination (with a four-day leonie period). Patient was instructed to call department if they develop any of the above symptoms prior to the procedure or surgery date. Yes Patient verbalized back understanding of the PCR swab plan and when to complete and at which site. Yes documented in this encounter Plan of Treatment Not on filedocumented as of this encounter Visit Diagnoses Not on filedocumented in this encounter Additional Health Concerns Assessment Noted Time PHQ-9 Depression Total Score: 2 03/08/2015 11:16 AM CS T documented as of this encounter Care Teams Steam Conditioner Filling Relationship Specialty Start Date End Date Silver Givens M.D. PCP - General Family Medicine 11/10/19 12/09/[address] [place] [phone] documented as of this encounter
--- OUTSIDE RECORDS SUMMARY | 2021-12-17 09:46 | XMS_ITS | Encounter Summary ---
:1940 Author Organization [facility] Address [address] [place] [address] Care Team Providers Name Role Phone Silver [...] Associated Comments Diagnosis GASTROENTEROLOGY IMAGE Routine 09/29/2020 10:10 R esults for this EXAM AM CDT procedure are i n the results section. documented in this encounter Results Colon, Rectum Colonoscopy-Gastroenterology Image Exam (09/29/2020 10:10 AM CDT) Specimen (Source) Anatomical Collection Method Collection Time Re ceived Time Location / / Volume Laterality 09/29/2020 10:10 AM CDT Narrative [facility] - 09/29/2020 11:09 [...] documented as of this encounter Care Teams Major Account Manager Relationship Specialty Start Date End Date Silver Givens M.D. PCP - General Family Medicine 11/10/19 12/09/[address] [place] [phone] documented as of this encounter
--- OUTSIDE RECORDS SUMMARY | 2021-12-17 09:46 | XMS_ITS | Encounter Summary ---
:1940 Author Organization [facility] Address [address] [place] [address] Care Team Providers Name Role Phone Silver Givens M.D. Primary Care Provider Reason for Visit Physical Therapy (Routine) - Canceled Specialty Diagnoses / Procedures Referred By Contact Refer red To Contact Diagnoses Aftercare Total Shoulder Arthroplasty Laine Day, P.A.-C. [facility] Procedures PT Ongoing treatment [address] [facility] [place] [phone] Referral ID Status Reason Start Date Expiration Date Visits V isits Requested Authorized [id number] Canceled 02/07/2020 02/06/2021 99 99 Encounter Details Date Type Department Care Team Description 03/13/2020 Clinical Support Department of Laine Day, P.A.-C. [address] [facility] [place] [phone] Aftercare Total Rehabilitation Arti Lundberg P.TLara [address] [place] [phone] Shoulder Services in [address] [phone] Social History Tobacco Use Types Packs/Day Years Used Date Smoking Tobacco: Former Smokeless Tobacco: Never Alcohol Use Standard Drinks/Week Comments No 0 (1 standard drink = 0.6 oz pure alcoho l) Sex Assigned at Date Recorded Not on file documented as of this encounter Progress Notes Arti Lundberg P.T. - 03/13/2020 9:30 AM CST Physical Therapy Outpatient Treatment Note SUBJECTIVE Patient's Name: Obey Vines Referring Provider: Laine Day P.A.-C. Visit Diagnosis: 1. 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 OBJECTIVE Pain: soreness with use. PROM left shoulder flexion 120 degrees in the plane of the scapula, ER 30 degrees in the plane of the scapula. TREATMENT Treatment today consisted of: Performed PROM to the left shoulder. Progressed home program to pulleys for shoulder ROM. Also initiated shoulder IR and ER at 2 x 10 reps with a submax/pain free muscle contraction. Home Exercise Program/Education: Patient will add pulleys and shoulder isometrics for IR and ER to his home program. Pt reports good compliance with his HEP. Contact monitoring: PPE used during therapy: Therapist was wearing the following PPE throughout entire session: surgicalmask and eye protection Patient was wearing a mask during therapy session: yes Additional Staff Present During Session: no Assessment Clinical Impression: Tolerated session well. Progressing with ROM and strength nicely. Functional Goals and Timeframes: PT Goal #1: [...] Date: 05/04/20 Plan Plan for next session: By 9 weeks post op will work on increasing shoulder ROM and begin AROM for forward flexion and elevation as well as shoulder isotonics for IR/ER. Time Spent with Patient Therapeutic Exercise (min): 20 min Time Calculation Total Timed Units (min): 20 min Total Treatment Time (min): 20 min Arti Lundberg P.T. Department of Rehabilitation Services in [address] [phone] Dept: [phone] ORATE DEVELOPMENT OFFICER documented in this encounter Plan of Treatment Not on filedocumented as of this encounter Visit Diagnoses Diagnosis Aftercare Total Shoulder Arthroplasty documented in this encounter Additional Health Concerns Assessment Noted Time PHQ-9 Depression Total Score: 2 03/08/2015 11:16 AM CS T documented as of this encounter Care Teams Road Tester Relationship Specialty Start Date End Date Silver Givens M.D. PCP - General Family Medicine 11/10/19 12/09/[address] [place] [phone] documented as of this encounter
--- OUTSIDE RECORDS SUMMARY | 2021-12-17 09:46 | XMS_ITS | Encounter Summary ---
:1940 Author Organization [facility] Address [address] [place] [address] Care Team Providers Name Role Phone Silver Givens M.D. Primary Care Provider Reason for Referral Outpatient (Routine) - Authorized Specialty Diagnoses / Procedures Referred By Contact Refer red To Contact Emergency Medicine Diagnoses Epistaxis Isidro Pahm, MARIANNAS [facility] JOINT FINISHER, C.N.P. [address] [place] [phone] Referral ID Status Reason Start Date Expiration Date Visits V isits Requested Authorized [id number] Authorized 08/15/2021 08/15/2022 1 1 Reason for Visit Reason Comments Fall Fall on Friday presents now with a nose bleed. Encounter Details Date Type Department Care Team Description 08/15/2021 Emergency [facility], Trever Larios, P.A.-C. [address] [place] [address] Epistaxis (Primary Dx); Department Isidro Pham APRN, C.N.P. [address] [place] [phone] History Of Falling; [address] [place] [address] [place] [address] Social History Tobacco Use Types Packs/Day Years Used Date Smoking Tobacco: Former Smokeless Tobacco: Never Alcohol Use Standard Drinks/Week Comments No 0 (1 standard drink = 0.6 oz pure alcoho l) Sex Assigned at Date Recorded Not on file documented as of this encounter Last Filed Vital Signs Vital Sign Reading Time Taken Comments Blood Pressure 128/89 08/15/2021 7:45 PM CDT Pulse 97 08/15/2021 7:45 PM CDT Temperature 36.4 ??C (97.5 ??F) 08/15/2021 5:48 PM CDT Respiratory Rate 20 08/15/2021 7:45 PM CDT Oxygen Saturation 97% 08/15/2021 7:45 PM CDT Inhaled Oxygen Concentration - - Weight 71 kg (156 lb 8.4 oz) 08/15/2021 5:49 PM CDT Height - - Body Mass Index 25.26 01/25/2020 4:33 PM CDT documented in this encounter Discharge Instructions Discharge InstructionsIsidro Pham APRN, C.N.P. - 08/15/2021 7:30 PM CDT Try applying pressure for least 15 minutes, picking table worker some Afrin and do 2 sprays into the nostril. If he continued to bleed after that please return to the ER. AttachmentsThe following attachments cannot be sent through Care Everywhere. Nosebleed Adult (Lithuanian)documented in this encounter Medications at Time of [...] Pain/Traumatic Injury. documented as of this encounter ED Notes Isidro Pham APRN, C.N.P. - 08/15/2021 7:45 PM CDT Care of patient transferred to me by Joshua Gracia PA-C. Disposition pending lab results. In brief this is a pleasant 81-year-old male coming for evaluation after had a fall couple days ago.Since then he has been having intermittent nosebleeds. He underwent CT scan showing no evidence of acute fracture or intracranial hemorrhage. He was clamped during his time here I unclamped him and he evaluated his bilateral nares. I saw no evidence of bruising or bleeding at that time. Left amount clamped roughly 30 minutes and he has had no evidence of rebleeding. I will discharge him home with strict return precautions which she has verbalized understanding of. VITAL SIGNS BP 149/78 Pulse 83 Temp 36.4 ??C Resp 18 Wt 71 kg SpO2 96% BMI 25.26 kg/m?? ED Course as of 08/15/211944Aug 15, 20211924 Patient has been clamped went to evaluate bilateral nostrils there is no evidence of oozing at this time. Will have him rest for about 15-20 minutes and then reassess. 1943 Patient has been clean for roughly 30 minutes. He has been doing quite well with no evidence ofrebleeding. I did discuss return precautions and treatment at home. This consisted of 15 minutes of continuous clamping and if he is continuing to bleed past that that he will need to come into the ER again for management. I also placed a fall from to see ENT for possible cauterization of it. Final Diagnoses: as of 08/15/211944 Epistaxis History Of Falling Injury Head Initial Isidro Pham APRN, C.N.P. 08/15/211945 Raymundo Gracia P.A.-C. - 08/15/2021 6:09 PM CDT Images from the original note were not included. CHIEF COMPLAINT/REASON FOR VISIT Fall (Fall on Friday presents now with a nose bleed.) HISTORY OF PRESENT ILLNESS Patient is a very pleasant 81-year-old gentleman who presents today with epistaxis. Patient states he fell on Friday and struck his nose. He has had intermittent nose bleeding since then. He states thenose became quite bloody this afternoon he was unable to get it to stop bleeding. He has had no light headedness dizziness chest pain or shortness of breath. He states he did not lose consciousness. He has no neck or back pain. He says he suffered no other injury in the fall. REVIEW OF SYSTEMS Constitutional: Negative for chills and diaphoresis. HENT: Negative for congestion and trouble swallowing. Eyes: Negative for photophobia and visual disturbance. Respiratory: Negative for cough and shortness of breath. Cardiovascular: Negative for chest pain and palpitations. Gastrointestinal: Negative for abdominal pain and vomiting. Genitourinary: Negative for dysuria, flank pain and frequency. Musculoskeletal: Negative for joint swelling and myalgias. Skin: Negative for lesions and rash. Neurological: Negative for dizziness and headaches. Psychiatric/Behavioral: Negative for agitation and confusion. OBJECTIVE Initial Vitals [08/15/21 1748] Temperature Pulse Rate Heart Rate Resp Rate Blood Pressure SpO2 36.4 ??C 83 -- 18 149/78 96 % Pain Score -- PHYSICAL EXAMINATION Constitutional: Nursing note and vitals reviewed. No distress. HENT: Head: Atraumatic. Nose: No nasal discharge. Mouth/Throat: Oropharynx is clear and moist. Mucous membranes are moist. Patient with evidence of epistaxis. There is some small amount of bleeding from the left near. No septal hematoma. No midface instability or tenderness. Eyes: Conjunctivae are normal. Pupils are equal, round, and reactive to light. Neck: Neck supple. No neck adenopathy. Cardiovascular: Normal rate and regular rhythm. Exam reveals no gallop and no friction rub. No murmur heard. Pulmonary/Chest: Effort normal. He has no wheezes. He has no rhonchi. He has no rales. Abdominal: Soft. exhibits no distension. There is no guarding. Musculoskeletal: General: No edema. Normal range of motion. Cervical back: Normal range of motion and neck supple. Comments: No cervical spine tenderness no step-off crepitus or deformity. No tenderness through thethoracic or lumbar spine. No tenderness to palpation of the chest abdomen pelvis upper lower extremities Neurological: Alert and oriented to person, place, and time. He is not disoriented. Skin: Skin is warm and dry. He is not diaphoretic. Psychiatric: He has a normal mood and affect. Behavior is normal. DIFFERENTIAL DIAGNOSIS Fracture, epistaxis, intracranial injury, among others MEDICAL DECISION MAKING Patient is a very pleasant 81-year-old gentleman who presents with recurrent epistaxis after a fall on Friday. Patient states he has had pain and bleeding from his nose since Friday that became more severe this afternoon. He states he has had no difficulty breathing no nausea vomiting. Will obtain screening labs. Will use Afrin and TXA as initial treatment for epistaxis. Will obtain CT head and max face. Will proceed as indicated based on his course in the department and results of his workup DIAGNOSTIC STUDIES LABORATORY RESULTS: Abnormal Labs Reviewed CBC WITH DIFFERENTIAL, B - Abnormal; Notable for the following components: Result Value RBC Distrib Width 14.7 (*) Leukocytes 12.2 (*) Neutrophils 8.88 (*) Monocytes 0.98 (*) All other components within normal limits IMAGING STUDIES: CT Head without IV Contrast (Results Pending) CT Maxillofacial without IV Contrast (Results Pending) ED Course as of 08/15/211944Aug 15, 2021 1859 Patient care signed out to oncoming team Final Diagnoses: as of 08/15/211944 Epistaxis History Of Falling Injury Head Initial Raymundo Gracia P.A.-C. 08/15/21 190 Raymundo Gracia P.A.-C. 08/18/21 1240 Raymundo Gracia P.A.-C. 08/18/21 1241 documented in this encounter Plan of Treatment Scheduled Referrals Name Type Priority Associated Order Schedule Diagnoses POST ED VISIT Outpatient Routine Epistaxis Expected: Otorhinolaryngology Referral 08/23/19 (Approximate), Expires: 11/14/2022 documented as of this encounter Procedures Procedure Name Priority Date/Time Associated Comments Diagnosis CT MAXILLOFACIAL RAD - Semiurgent 08/15/2021 6:34 Resu lts for WITHOUT IV CONTRAST (Fast; most ED PM CDT this p rocedure patients; some are in the inpatients) results section. CT HEAD WITHOUT IV RAD - Semiurgent 08/15/2021 6:32 Re sults for CONTRAST (Fast; most ED PM CDT this procedur e patients; some are in the inpatients) results section. PROTHROMBIN TIME STAT 08/15/2021 6:05 Results for (PT), P PM CDT this procedure are in the results section. CBC WITH STAT 08/15/2021 6:05 Results for DIFFERENTIAL, B PM CDT this procedu re are in the results section. BASIC METABOLIC STAT 08/15/2021 6:05 Results f or PANEL, S/P PM CDT this procedure are in the results section. documented in this encounter Results CT Maxillofacial without IV Contrast (08/15/2021 6:34 PM CDT) Anatomical Region Laterality Modality Jaw, Head, Neuroradiology RST LOS, Neuroradiology ARZ N/A Computed Tomography LOS, Neuroradiology FLA LOS Specimen (Source) Anatomical Collection Method Collection Time Re ceived Time Location / / Volume Laterality 08/16/2021 8:08 AM CDT Impressions 08/16/2021 8:11 AM CDT No acute appreciable facial bone fracture. vRad: ??Findings concordant with prelimi nary vRad report. Narrative 08/16/2021 8:11 AM CDT EXAM: CT MAXILLOFACIAL WITHOUT IV CONTRAST COMPARISON: None FINDINGS: Globes are intact. No intraorb ital hematoma. Small hemorrhagic products and edema within the left nasal cavity and bilateral naso pharynx. Mucosal thickening in the paranasal sinuses predominant within the left maxillary si nus, ethmoid air cells, and left frontal sinus. Mastoid air cells are clear. Cribriform plate is int act. No acute appreciable facial bone fracture. Procedure Note Jed José M.D. - 08/16/2021Formattin g of this note might be different from the original. EXAM: CT MAXILLOFACIAL WITHOUT IV CONTRA ST COMPARISON: None FINDINGS: Globes are intact. No intraorb ital hematoma. Small hemorrhagic products and edema within the left nasal cavity and bilateral naso pharynx. Mucosal thickening in the paranasal sinuses predominant within the left maxillary si nus, ethmoid air cells, and left frontal sinus. Mastoid air cells are clear. Cribriform plate is int act. No acute appreciable facial bone fracture. IMPRESSION: No acute appreciable facial bone fractur e. vRad: Findings concordant with prelimina ry vRad report. Raymundo NOBLES CT PROCEDURES CT Head without IV Contrast (08/15/2021 6:32 PM CDT) Anatomical Region Laterality Modality Head, Neuroradiology RST LOS, Neuroradiology ARZ LOS, N/A Computed Tomography Neuroradiology [facility] Specimen (Source) Anatomical Collection Method Collection Time Re ceived Time Location / / Volume Laterality 08/15/2021 6:21 PM CDT Impressions 08/16/2021 8:08 AM CDT No acute intracranial pathology. No acute appreciable fracture. vRad: ??Findings concordant with prelimi nary vRad report. Narrative 08/16/2021 8:08 AM CDT EXAM: CT HEAD WITHOUT IV CONTRAST COMPARISON: None FINDINGS: No intracranial hemorrhage, mi dline shift, mass effect, or abnormal extra-axial fluid collection. Mild to moderate generalized cerebral volume loss. Advanced chronic changes of microangiopathy. This limits evaluation for acute infarct by CT. No hydrocephalus. Basal cisterns are patent. Arteriovascular calcificatio ns. Mastoid air cells are clear. Mucosal thickening in the paranasal sinuses predominant within the left maxillary sinus, ethmoid air cells, and left frontal sinus. Left nasal cavity blood products and edema. No acute appreciable fracture. Procedure Note Jed José M.D. - 08/16/2021Formattin g of this note might be different from the original. EXAM: CT HEAD WITHOUT IV CONTRAST COMPARISON: None FINDINGS: No intracranial hemorrhage, mi dline shift, mass effect, or abnormal extra-axial fluid collection. Mild to moderate generalized cerebral volume loss. Advanced chronic changes of microangiopathy. This limits evaluation for acute infarct by CT. No hydrocephalus. Basal cisterns are patent. Arteriovascular calcificatio ns. Mastoid air cells are clear. Mucosal thickening in the paranasal sinuses predominant within the left maxillary sinus, ethmoid air cells, and left frontal sinus. Left nasal cavity blood products and edema. No acute appreciable fracture. IMPRESSION: No acute intracranial pathology. No acut e appreciable fracture. vRad: Findings concordant with prelimina ry vRad report. Raymundo Gracia P.A.-C. IMJulienne CT PROCEDURES (ABNORMAL) Basic Metabolic Panel (08/15/2021 6:05 PM CDT) P athologist Signature Potassium, P 3.5 (L) 3.6 - 5.2 08/15/2021 [facility] mmol/L 7:21 PM CDT Sodium, P 142 135 - 145 08/15/2021 [facility] mmol/L 7:21 PM CDT Chloride, P 105 98 - 107 08/15/2021 [facility] mmol/L 7:21 PM CDT Bicarbonate, P 24 22 - 29 08/15/2021 [facility] mmol/L 7:21 PM CDT Anion Gap, P 13 7 - 15 08/15/2021 [facility] 7:21 PM CDT BUN (Blood 13 8 - 24 08/15/2021 [facility] Urea mg/dL 7:21 PM CDT Nitrogen), P Creatinine, P 1.18 0.74 - 08/15/2021 [facility] 1.35 mg/dL 7:21 PM CDT eGFR-Black/Afr 67 >=60 08/15/2021 CNFL ican Tristanian mL/min/BSA 7:21 PM CDT Comment: ----ADDITIONAL INFORMATION---- Estimated GFR calculated using the 2009 CKD_EPI creatinine equation. eGFR Non-Black/ 58 (L) >=60 mL/min/BSA 08/15/2021 7:21 PM CDT [facility] Tristanian Comment: ----ADDITIONAL INFORMATION---- Estimated GFR calculated using the 2009 CKD_EPI creatinine equation. Calcium, Total, P 9.5 8.8 - 10.2 mg/dL 08/15/2021 7:21 PM CDT CNFL Glucose, P 105 70 - 140 mg/dL 08/15/2021 7:21 PM CDT C NFL Specimen Anatomical Collection Method Collection Time Receive d Time (Source) Location / / Volume Laterality Blood (Blood, 08/15/2021 6:05 PM 08/16/19 6:05 Venous) CDT PM CDT Raymundo Gracia P.A.-C. LAB BLOOD ADD-ON Performing Organization Address City/State/[facility] Code Phon e Number [facility] [address] [place] [phone] [place] [address] [place] [address] System in [address] Prothrombin Time (PT) (08/15/2021 6:05 PM CDT) P athologist Signature Prothrombin 12.3 9.4 - 12.5 08/15/2021 [facility] Time, P sec 6:13 PM CDT INR 1.1 0.9 - 1.1 08/15/2021 [facility] 6:13 PM CDT Comment: ----ADDITIONAL INFORMATION---- Standard intensity warfarin therapeutic range: 2.0 to 3.0 ?? High intensity warfarin therapeutic rang e: 2.5 to 3.5 Specimen Anatomical Collection Method Collection Time Receive d Time (Source) Location / / Volume Laterality Blood (Blood, 08/15/2021 6:05 PM 08/16/19 6:05 Venous) CDT PM CDT Raymundo Gracia P.A.-C. LAB BLOOD ADD-ON Performing Organization Address City/State/ZIP Code Phon e Number [facility]- [address] [place] [id number] [place] [address] System in [address] (ABNORMAL) CBC with Differential, Blood (08/15/2021 6:05 PM CDT) [facility] Method Time Signature Hemoglobin 13.4 13.2 - 08/15/2021 [facility] 16.6 g/dL 6:11 PM CDT Hematocrit 41.0 38.3 - 08/15/2021 [facility] 48.6 % 6:11 PM CDT Erythrocytes 4.55 4.35 - 08/15/2021 [facility] 5.65 6:11 PM CDT x10(12)/L MCV 90.1 78.2 - 08/15/2021 [facility] 97.9 fL 6:11 PM CDT RBC Distrib Width 14.7 (H) 11.8 - 08/15/2021 [facility] 14.5 % 6:11 PM CDT Platelet Count 240 135 - 317 08/15/2021 [facility] x10(9)/L 6:11 PM CDT Leukocytes 12.2 (H) 3.4 - 9.6 08/15/2021 [facility] x10(9)/L 6:11 PM CDT Neutrophils 8.88 (H) 1.56 - 08/15/2021 CN[facility] 6.45 6:11 PM CDT x10(9)/L Lymphocytes 2.11 0.95 - 08/15/2021 CNFL 3.07 6:11 PM CDT x10(9)/L Monocytes 0.98 (H) 0.26 - 08/15/2021 CN[facility] 0.81 6:11 PM CDT x10(9)/L Eosinophils 0.23 0.03 - 08/15/2021 CN[facility] 0.48 6:11 PM CDT x10(9)/L Basophils 0.02 0.01 - 08/15/2021 CN[facility] 0.08 6:11 PM CDT x10(9)/L Specimen Anatomical Collection Method Collection Time Receive d Time (Source) Location / / Volume Laterality Blood (Blood, 08/15/2021 6:05 PM 08/16/19 6:05 Venous) CDT PM CDT Raymundo Gracia P.A.-C. LAB BLOOD ADD-ON Performing Organization Address City/State/ZIP Code Phon e Number [facility]- [address] [place] [address] [place] [address] [place] [address] System in [address] documented in this encounter Visit Diagnoses Diagnosis Epistaxis - Primary History Of Falling Injury Head Initial documented in this encounter Administered Medications Inactive Administered Medications - up to 3 most recent administrations Medication Order MAR Action Action Date Dose Rate Site oxymetazoline 0.05 % nasal spray Given 08/15/2021 6:40 PM CDT 2 sprays 2 spray (AFRIN) 2 spray, each nostril, Once, On Fri08/15/21 at 1751, For 1 dose, Do not use for more than 3 days. tranexamic acid injection 500 mg Given 08/15/2021 6:30 PM CDT 50 0 mg (CYKLOKAPRON) 500 mg, topical, Once, On Fri08/15/21 at 1751, For 1 dose, Soak 3-4 pledgets in 5 mL (500 mg) and apply to affected nare. documented in this encounter Active and Recently Administered Medications Times are shown in CDT. Scheduled Medication Order 08/13/2021 08/14/2021 08/15/2021 lidocaine-EPINEPHrine 1 %-1:100,000 injection 5 mL (XYLOCAINE W/ EPI) 1948 (Not Given - Provider: Ibis Kumar R.N. - Reason: See Provider Order) 5 mL, topical, Once, On Fri08/15/21 at 1918, For 1 dose oxymetazoline 0.05 % nasal spray 2 spray (AFRIN) (COMPLETED) 1840 (Given - Provider: Ibis Kumar R.N.) 2 spray, each nostril, Once, On 08/15 at 1751, For 1 dose, Do not use for more than 3 days. tranexamic acid injection 500 mg (CYKLOKAPRON) (COMPLETED) 183 (Given - Provider: Raymundo Gracia P.A.-C. - Comment: given by provider) 500 mg, topical, Once, On Fri08/15/21 at 1751, For 1 dose, Soak 3-4 pledgets in 5 mL (500 mg) and apply to affected nare. documented in this encounter Additional Health Concerns Assessment Noted Time PHQ-9 Depression Total Score: 2 03/08/2015 11:16 AM CS T documented as of this encounter Care Teams Event Marketing Assistant Relationship Specialty Start Date End Date Silver Givens M.D. PCP - General Family Medicine 11/10/19 12/09/[address] [place] [phone] documented as of this encounter
--- OUTSIDE RECORDS SUMMARY | 2021-12-17 09:46 | XMS_ITS | Encounter Summary ---
:1940 Author Organization [facility] Address [address] [place] [address] Care Team Providers Name Role Phone Silver Givens M.D. Primary Care Provider Reason for Visit Physical Therapy (Routine) - Canceled Specialty Diagnoses / Procedures Referred By Contact Refer red To Contact Diagnoses Aftercare Total Shoulder Arthroplasty Laine Day, P.A.-C. [facility] Procedures PT Ongoing treatment [address] [facility] [place] [address] Referral ID Status Reason Start Date Expiration Date Visits V isits Requested Authorized [id number] Canceled 02/07/2020 02/06/2021 99 99 Encounter Details Date Type Department Care Team Description 04/19/2020 Clinical Support Department of Laine Day, P.A.-C. [address] [facility] [place] [phone] Aftercare Total Rehabilitation Arti Lundberg P.TLara [address] [place] [phone] Shoulder Services in [address] [phone] Social History Tobacco Use Types Packs/Day Years Used Date Smoking Tobacco: Former Smokeless Tobacco: Never Alcohol Use Standard Drinks/Week Comments No 0 (1 standard drink = 0.6 oz pure alcoho l) Sex Assigned at Date Recorded Not on file documented as of this encounter Progress Notes Arti Lundberg P.T. - 04/19/2020 8:30 AM CST Physical Therapy Outpatient Treatment Note SUBJECTIVE Patient's Name: Obey Vines Referring Provider: Laine Day P.A.-C. Visit Diagnosis: 1. 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 He is pleased with his progress and would like to discharge into home program. OBJECTIVE Pain: no complaint PROM for left shoulder flexion 160 degrees and elevation WFL, ER 50 degrees. AROM for left shoulder flexion 100 degrees and scaption 90 degrees. TREATMENT Treatment today consisted of: Performed PROM to the left shoulder for flexion, elevation and ER. Initiated AROM in supine shoulderflexion and elevation x 10 reps each. Progressed to an green TB for left shoulder IR and ER x 10 reps. Home Exercise Program/Education: Progress to standing AROM for flexion/elevation and TB strengthening for IR/ER working up to 3 x 10 reps. Pulleys will continue for ROM. Pt reports good compliance with his HEP. Contact monitoring: PPE used during therapy: Therapist was wearing the following PPE throughout entire session: surgicalmask and eye protection Patient was wearing a mask during therapy session: yes Additional Staff Present During Session: no Assessment Clinical Impression: Tolerated session well. He has progressed greatly in his ROM. He is independentwith his home program. Patient will discharge to his home program. Functional Goals and Timeframes: Progressing towards goals PT Goal #1: Patient will restore full passive range of motion.-In progress, functional PT Goal #1 Date: 05/04/20 PT Goal #2: Patient will demonstrate active shoulder flexion to 150?? without compensation.-In progress, functional PT Goal #2 Date: 05/04/20 PT Goal #3: Patient will be able to activate all components with deltoid and periscapular muscles.-Achieved PT Goal #3 Date: 05/04/20 Plan Plan: Discharge Time Spent with Patient Therapeutic Exercise (min): 15 min Time Calculation Total Timed Units (min): 15 min Total Treatment Time (min): 15 min Arti Lundberg P.T. Department of Rehabilitation Services in [address] [phone] Dept: [phone] TER documented in this encounter Plan of Treatment Not on filedocumented as of this encounter Visit Diagnoses Diagnosis Aftercare Total Shoulder Arthroplasty documented in this encounter Additional Health Concerns Assessment Noted Time PHQ-9 Depression Total Score: 2 03/08/2015 11:16 AM CS T documented as of this encounter Care Teams Product Management Analyst Relationship Specialty Start Date End Date Silver Givens M.D. PCP - General Family Medicine 11/10/19 12/09/[address] [place] [phone] documented as of this encounter
--- OUTSIDE RECORDS SUMMARY | 2021-12-17 09:46 | XMS_ITS | Encounter Summary ---
:1940 Author Organization [facility] Address [address] [place] [address] Care Team Providers Name Role Phone Silver Givens M.D. Primary Care Provider Reason for Visit Outpatient (Routine) - Closed Specialty Diagnoses / Procedures Referred By Contact Refer red To Contact Diagnoses Pain Shoulder Left Marv Dodson M.D. [facility] Region Procedures DX Shoulder Left 2+ Views DX Shoulder Right 2+ Views [address] [place] [phone] Referral ID Status Reason Start Date Expiration Date Visits Requ ested Visits Authorized [id number] Closed 08/20/2021 08/20/2022 1 1 Encounter Details Date Type Department Care Team Description 08/20/2021 Hospital Encounter Department of Marcus Dodson Fifi ulder Left Radiology in [place] [address] [place] [phone] Social History Tobacco Use Types Packs/Day Years [...] mg-300 mg calcium(777 mouth. mg) tablet atorvastatin (for_LIPITOR) Take 80 mg by mouth 0 01/27/2017 80 mg tablet daily. metoprolol succinate Take 0.5 tablets 15 tablet 0 9 (TOPROL-XL) 25 mg 24 hr (12.5 mg total) by tablet mouth daily. pantoprazole (PROTONIX) 40 Take 1 tablet (40 90 tablet 3 mg EC tablet mg total) by mouth daily. ZETIA 10 mg tablet Take 10 mg by mouth 0 01/09/[address] 1 tablet 0 06/25/2016 022 (for_NITROSTAT) 0.4 mg SL under the tongue tablet every 5 (five) minutes as needed for chest pain. documented as of this encounter Plan of Treatment Not on filedocumented as of this encounter Procedures Procedure Name Priority Date/Time Associated Comments Diagnosis DX SHOULDER LEFT RAD - Routine 08/20/2021 3:49 Pain Shoulder Result s for this 2+ VIEWS (most inpatients PM CDT Left procedure a re in and all the results outpatients) section. documented in this encounter Results DX Shoulder Left 2+ Views (08/20/2021 3:49 PM CDT) Anatomical Region Laterality Modality Upper Extremity, Shoulder, Musculoskeletal RST LOS, Left Digital Radiography Musculoskeletal ARZ LOS, Muskuloskeletal FLA LOS Specimen (Source) Anatomical Collection Method Collection Time Re ceived Time Location / / Volume Laterality 08/20/2021 3:52 PM CDT Impressions 08/20/2021 3:53 PM CDT Demineralization. Left reverse TSA without findings of loosening. Mild developing scapular notching when compared to 03/08. 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 Several old healed left-sided rib fractu res. Arterial calcifications. Surgical clip projected about the base of the neck. Narrative 08/20/2021 3:53 PM CDT EXAM: ??DX SHOULDER LEFT 2+ VIEWS Procedure Note Erasto Holloway M.D. - 08/20/2021Forma tting of this note might be different from the original. EXAM: DX SHOULDER LEFT 2+ VIEWS IMPRESSION: Demineralization. Left reverse TSA witho ut findings of loosening. Mild developing scapular notching when compared to 03/08. 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 Several old healed left-sided rib fractu res. Arterial calcifications. Surgical clip projected about the base of the neck. [facility]v [facility] documented in this encounter Visit Diagnoses Diagnosis Pain Shoulder Left documented in this encounter Additional Health Concerns Assessment Noted Time PHQ-9 Depression Total Score: 2 03/08/2015 11:16 AM CS T documented as of this encounter Care Teams Sewer Pipe Layer Relationship Specialty Start Date End Date Silver Givens M.D. PCP - General Family Medicine 11/10/19 12/09/[address] [place] [phone] documented as of this encounter
--- OUTSIDE RECORDS SUMMARY | 2021-12-17 09:46 | XMS_ITS | Encounter Summary ---
:1940 Author Organization [facility] Address [address] [place] [address] Care Team Providers Name Role Phone Silver Givens M.D. Primary Care Provider Encounter Details Date Type Department Care Team Description 09/29/2020 Surgery Department of Gastroenterology Wood Uribe M.D. COLONOSCOPY-P in [facility] [address] [facility] [address] [place] [phone] (Wo rk) Social History Tobacco Use Types Packs/Day Years Used Date Smoking Tobacco: Former Smokeless Tobacco: Never Alcohol Use Standard Drinks/Week Comments No 0 (1 standard drink = 0.6 oz pure alcoho l) Sex Assigned at Date Recorded Not on file documented as of this encounter Last Filed Vital Signs Vital Sign Reading Time Taken Comments Blood Pressure 144/93 09/29/2020 11:00 AM CDT Pulse 99 09/29/2020 11:00 AM CDT Temperature 36.6 ??C (97.9 ??F) 09/29/2020 10:59 AM CDT Respiratory Rate 16 09/29/2020 10:59 AM CDT Oxygen Saturation 100% 09/29/2020 11:00 AM CDT Inhaled Oxygen Concentration - - [...] 10:14 AM CDTAssociated Order(s): UPPER GI ENDOSCOPY [facility] Patient Name: Obey Vines Procedure Date: [...] 10:10 AM CDTAssociated Order(s): COLONOSCOPY [facility] Patient Name: Obey Vines Procedure Date: [...] bowel preparation was evaluated using the BBPS ([place] Bowel Preparation Scale) with scores of: Right [...] Component Value Ref Test Analysis Performed At [facility] Method Time Signature 10/04/2020 ECLR 8:26 AM CDT Report Rodrigo A. 10/04/2020 ECLR electronically Marisela [place] 8:26 AM CDT signed by Specimen Received [...] Organization Address City/State/ZIP Code Phon e Number [facility]- [address] [place] [address] [phone] [facility] [place] [address] UPPER GI ENDOSCOPY (09/29/2020 10:14 AM CDT) Specimen (Source) Anatomical Location Collection Method / Collectio n Time Received Time / Laterality Volume Narrative This result has an attachment that is no t available. Procedure Note Wood Car M.D. - 09/29/2020 10:14 AM CDT [facility] Patient Name: Obey Vines Procedure Date: [...] - 09/29/2020 10:10 AM CDT [facility] Patient Name: Obey Vines Procedure Date: [...] preparation was ev aluated using the BBPS ([place] Bowel Preparation Scal e) with scores of: [...] Loss Chroni c Stool Positive Occult Blood Anemia Iron Deficiency Blood Loss Chroni c Stool Positive Occult Blood documented in this encounter Admitting Diagnoses Diagnosis Anemia Iron Deficiency Blood Loss Chroni c Stool Positive Occult Blood documented in this encounter Additional Health Concerns Assessment Noted Time PHQ-9 Depression Total Score: 2 03/08/2015 11:16 AM CS T documented as of this encounter Care Teams Underwater Photographer Relationship Specialty Start Date End Date Silver Givens M.D. PCP - General Family Medicine 11/10/19 12/09/[address] [place] [phone] documented as of this encounter
--- OUTSIDE RECORDS SUMMARY | 2021-12-17 09:47 | XMS_ITS | Encounter Summary ---
:1940 Author Organization [facility] Address [address] [place] [address] Care Team Providers Name Role Phone Silver Givens M.D. Primary Care Provider Reason for Visit Reason Comments Covid Screening Encounter Details Date Type Department Care Team Description 11/10/2019 Clinical Communication Department of Mike Montelongo, Covid Screening Medicine, [facility], [address] [address] [place], [place] [phone] (Work) [phone] Social History Tobacco Use Types Packs/Day Years Used Date Smoking Tobacco: Former Smokeless Tobacco: Never Alcohol Use Standard Drinks/Week Comments No 0 (1 standard drink = 0.6 oz pure alcoho l) Sex Assigned at Date Recorded Not on file documented as of this encounter Miscellaneous Notes Telephone Encounter - Mattie Mensah - 11/10/2019 4:06 PM CDT ([facility] and [facility] locations only: If the patient is not having symptoms and is requesting COVID-19 Nasal Swab testing only, use the process listed in the COVID- Patient Requesting COVID PCR Test OTG COVID-19 [place] Patient Requesting COVID PCR Test). 1. Do you have a pending COVID test because you had symptoms or exposure to someone with COVID or you have tested positive for COVID in the last 30 days? no 2. In the past 14 days, do you, anyone in the household, or anyone you have had prolonged exposure have any of the following? a. Fever greater than or equal to 37.8 C (100.0 F)? no b. New symptoms (Specifically: headache, cough, shortness of breath, respiratory distress, sore throat, diarrhea, nausea, vomiting, chills and repeated shaking with chills, myalgia's (muscle aches), loss of smell, or change or loss of taste sensation)? no c. Had close contact with a patient with known or possible COVID-19 in the last 14 days? no Route reply to: n/a Scheduling Contact Number: [phone] documented in this encounter Plan of Treatment Not on filedocumented as of this encounter Visit Diagnoses Not on filedocumented in this encounter Additional Health Concerns Assessment Noted Time PHQ-9 Depression Total Score: 2 03/08/2015 11:16 AM CS T documented as of this encounter Care Teams Rfid Engineer Relationship Specialty Start Date End Date Silver Givens M.D. PCP - General Family Medicine 11/10/19 12/09/[address] [place] [phone] documented as of this encounter
--- OUTSIDE RECORDS SUMMARY | 2021-12-17 09:47 | XMS_ITS | Encounter Summary ---
:1940 Author Organization [facility] Address [address] [place] [address] Care Team Providers Name Role Phone Silver Givens M.D. 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] Procedures ARTHROPLASTY TOTAL REVERSE SHOULDER- Referral ID Status Reason Start Date Expiration Date Visits Requ ested Visits Authorized [id number] 1 1 Encounter Details Date Type Department Care Team Description 01/25/2020 Surgery [facility] MAIN OR Marv Dodson, ARTHROPLASTY TOTAL [address] M.D. REVERSE SHOULDER- YARIEL CUMMINS [phone] [phone] [place] [id number] (Wo rk) Social History Tobacco Use Types Packs/Day Years Used Date Smoking Tobacco: Former Smokeless Tobacco: Never Alcohol Use Standard Drinks/Week Comments No 0 (1 standard drink = 0.6 oz pure alcoho l) Sex Assigned at Date Recorded Not on file documented as of this encounter Last Filed Vital Signs Vital Sign Reading Time Taken Comments Blood Pressure 103/63 01/25/2020 1:00 PM CDT Pulse 45 01/25/2020 1:05 PM CDT Temperature 36.3 ??C (97.3 ??F) 01/25/2020 10:44 AM CDT Respiratory Rate 15 01/25/2020 10:44 AM CDT Oxygen Saturation 99% 01/25/2020 1:05 PM CDT Inhaled Oxygen Concentration - - Weight - - Height - - Body Mass Index - - documented in this encounter Discharge Summaries Laine Day P.A.-C. - 01/26/2020 7:36 AM CDT PATIENT: Obey Vines ADMISSION DATE: 01/25/2020 DISCHARGE DATE: 01/26/2020 ALLERGY: Oxycodone PHYSICIAN'S DISCHARGE / TRANSFER ORDERS: DISCHARGE To: Home MEDICATIONS: Reviewed in chart. PHARMACY CONSULT: No Patient's prescription was printed off and handed to the patient. ADMITTING DIAGNOSIS: Primary Osteoarthritis Shoulder Left [M19.012] Aftercare Total Shoulder Arthroplasty [Z47.1, Z96.619] Surgery Information This Encounter Past Procedures (01/26/2019 to Today) Date Procedures Providers Location 01/25/2020 ARTHROPLASTY TOTAL REVERSE SHOULDER- Marv Dodson M.D.Jensen, Jill C, P.A.-C. [facility] OR DISCHARGE DIAGNOSIS: right Reverse TSA DISCHARGE MEDICATIONS Discharge Medications TAKE these medications acetaminophen 500 mg tablet Commonly known as: TYLENOL Take 2 tablets (1,000 mg total) by mouth every 6 (six) hours. aspirin-calcium carbonate 81 mg-300 mg calcium(777 mg) tablet Take 1 tablet by mouth. atorvastatin 80 mg tablet Commonly known as: LIPITOR Take 80 mg by mouth daily. clopidogreL 75 mg tablet Commonly known as: PLAVIX Take 75 mg by mouth. docusate sodium 100 mg capsule Take 100 mg by mouth daily. metoprolol succinate 25 mg 24 hr tablet Commonly known as: TOPROL-XL Take 0.5 tablets (12.5 mg total) by mouth daily. nitroglycerin 0.4 mg SL tablet Commonly known as: NITROSTAT Place 1 tablet under the tongue every 5 (five) minutes as needed for chest pain. pantoprazole 40 mg EC tablet Commonly known as: PROTONIX Take 40 mg by mouth daily. sennosides-docusate sodium 8.6-50 mg per tablet Commonly known as: SENOKOT-S Take 1 tablet by mouth 2 (two) times a day as needed for constipation. traMADoL 50 mg tablet Commonly known as: ULTRAM Take 1 tablet (50 mg total) by mouth every 6 (six) hours as needed for moderate pain or score 4-6 of10 Indications: Prolonged Acute Pain/Traumatic Injury. Zetia 10 mg tablet Take 10 mg by mouth daily. Generic drug: ezetimibe Patient Active Problem List Diagnosis ??? Atherosclerotic Heart Disease Of [place] Coronary Artery Without Angina Pectoris ??? Stroke Cerebrovascular Accident Personal History ??? Peripheral Vascular Disease (HCC) ??? Osteoporosis Without Pathological Fracture ??? Hyperlipidemia ??? Deficiency Vitamin D ??? Hyperglycemia ??? Gastroesophageal Reflux Disease Without Esophagitis ??? Loss Hearing Bilateral ??? Primary Osteoarthritis Shoulder Left ??? Aftercare Total Shoulder Arthroplasty HOSPITAL COURSE Patient was admitted s/p right Reverse TSA. Patient advanced and tolerated PT. Patient tolerated pain on oral pain medications. Patient was discharged when cleared from a medical, orthopedic, and PT standpoint. Discharge hemoglobin - reviewed in EMR. Lab Results Component Value Date HGB 13.9 01/26/2020 Body mass index is 23.91 kg/m??. DIET: Regular, as at home. CONDITION ON DISCHARGE: Satisfactory. LEVEL OF ACTIVITY: Weight bearing: NWB APPOINTMENTS: With Orthopedic Department at already scheduled date. Scheduled Appointments 02/09/2020 10:00 AM Laine Day, P.A.-C. Orthopedic Surgery For appointment details refer to your Patient Appointment Guide. REFERRALS: PT OTHER ORDERS/COMMENTS: Aquacel for 5 days then patient to remove. per protocol restrictions for reverse TSA PROCEDURE(S) PERFORMED: right Reverse TSA Time spent in discharging patient: less than 30 minutes. Date: Laine Day PA-C documented in this encounter Medications at Time of Discharge Medication Sig Dispensed Refills Start Date End Date atorvastatin Take 80 mg by mouth 0 01/27/2017 (for_LIPITOR) 80 mg daily. tablet metoprolol succinate Take 0.5 tablets 15 tablet 0 9 (TOPROL-XL) 25 mg 24 hr (12.5 mg total) by tablet mouth daily. ZETIA 10 mg tablet Take 10 mg by mouth 0 01/09/20 17 daily. aspirin-calcium carbonate Take 1 tablet by 0 81 mg-300 mg calcium(777 mouth. mg) tablet docusate sodium 100 mg Take 100 mg by mouth 0 08/20/2021 capsule daily. pantoprazole (PROTONIX) Take 40 mg by mouth 0 03/07/2020 40 mg EC tablet daily. acetaminophen (TYLENOL) Take 2 tablets 90 tablet 2 01/26/20 20 08/20/2021 500 mg tablet (1,000 mg total) by mouth every 6 (six) hours. clopidogreL (PLAVIX) 75 Take 75 mg by mouth. 0 08/20/[address] 1 tablet under 0 06/25/2016 [...] Pain/Traumatic Injury. documented as of this encounter Progress Notes Katalina George P.T. - 01/26/2020 10:14 AM CDT No PT needs indicated. TSA teaching completed by OT. Laine Day P.A.-C. - 01/26/2020 7:31 AM CDT SUBJECTIVE HISTORY OF PRESENT ILLNESS POD# 1 s/p right Reverse TSA. Patient is tolerating pain on oral pain medications. Using tylenol only. Denies numbness, tingling, SOB, CP, dizziness, lightheadedness. OBJECTIVE PHYSICAL EXAMINATION AOx3. NAD. Capillary refill less than 3 seconds. Sensation intact to UE. Strength to limited due to the block. Dressing c/d/I. DIAGNOSTICS LABS: Lab Results Component Value Date HGB 13.9 01/26/2020 Lab Results Component Value Date INR 1.0 12/18/2011 PT 11.0 12/18/2011 ASSESSMENT / PLAN PLAN: Continue per Reverse TSA. Continue PT per protocol. Weight bearing: NWB. Continue with anticoagulation regimen and SCDs. Continue oral pain medications. Follow Hgb and vitals, contact provider if becomes symptomatic or Hgb below 8.0 Continue to monitor vital and Hgb. Possible discharge today pending orthopedic, PT, and medical clearance. documented in this encounter H&P Notes Marv Dodson M.D. - 01/25/2020 10:45 AM CDT INTERVAL HISTORY AND PHYSICAL PRE-PROCEDURE UPDATE H&P reviewed. The patient was examined and there are no significant changes to the H&P. The risks, benefits, and alternatives to the planned procedure were discussed in detail, including the risk of exposure to COVID-19 within the facility. All questions pertaining to the procedure and these risks were answered and the patient agreed to proceed. Marv Dodson M.D. Source Note - Silver Givens M.D., Ph.D. - 01/18/2020 11:00 AM CDT SUBJECTIVE CHIEF COMPLAINT / REASON FOR VISIT Obey Vines is a 79 y.o. male who presents for evaluation of Pre-op Exam (01/25/20- L total Shoulder with Dr. Marv Dodson in ). HISTORY OF PRESENT ILLNESS Here for preop evaluation. Planned procedure includes left total shoulder replacement on 01/25/[address] [place] [address] Dodson for left shoulder arthritis. He has a history of reaction to either oxycodoneor anesthesia at his last surgery resulting in memory issues. Medical problems are stable. He has left-sided shoulder pain present for 2 year(s). The pain is aching with radiation to arm. Thepain started after no specific event. He does have a history of shoulder pain. Palliative factors include rest and provocative factors include abduction. Treatments so far have included cortisone injections. MRI reviewed. He has osteoporosis and vitamin D deficiency. He has a history of PMR. ?? Here for followup of coronary artery disease, PVD, hypertension and hypercholesterolemia, controlledwith medication. In general, a healthy diet and exercise regimen is followed, and he continues to work on healthy habits. Compliant with medications and has no cardiovascular symptoms. He has a history of CVA and hyperglycemia. GERD is stable. He has bilateral hearing loss. Current Outpatient Medications: ??? aspirin-calcium carbonate 81 mg-300 mg calcium(777 mg) tablet, Take 1 tablet by mouth., Disp: , Rfl: ??? atorvastatin (for_LIPITOR) 80 mg tablet, Take 80 mg by mouth daily. , Disp: , Rfl: ??? clopidogreL (PLAVIX) 75 mg tablet, Take 75 mg by mouth., Disp: , Rfl: ??? docusate sodium 100 mg capsule, Take by mouth as needed for constipation., Disp: , Rfl: ??? metFORMIN (GLUCOPHAGE) 500 mg tablet, Take 1-2 tablets by mouth 2 (two) times a day., Disp: , Rfl: ??? metoprolol succinate (TOPROL-XL) 25 mg 24 hr tablet, Take 0.5 tablets (12.5 mg total) by mouth daily., Disp: 15 tablet, Rfl: 0 ??? nitroglycerin (for_NITROSTAT) 0.4 mg SL tablet, Place 1 tablet under the tongue every 5 (five) minutes as needed for chest pain. , Disp: , Rfl: ??? pantoprazole (PROTONIX) 40 mg EC tablet, Take 40 mg by mouth., Disp: , Rfl: ??? ZETIA 10 mg tablet, Take 10 mg by mouth daily. , Disp: , Rfl: Allergies Allergen Reactions ??? Oxycodone Other (see comments) Confusion Past Medical History: Diagnosis Date ??? Cataract ??? Coronary Artery Disease (Unspecified) ??? [place] Macular Bilateral ??? Fracture Vertebra Thoracic Closed Initial (HCC) 04/20/2008 ??? Non-ST Elevation Myocardial Infarction (HCC) 08/15/2018 ??? 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 Post Operative Nausea/Vomiting ??? ST Elevation Myocardial Infarction Of Unspecified Site (HCC) ??? Stroke (HCC) Past Surgical History: Procedure Laterality Date ??? ARTHROPLASTY OF SHOULDER N/A 03/23/2015 Arthroplasty of the shoulder ??? CARPAL TUNNEL RELEASE N/A 02/24/2007 >Right [...] INTRAOCULAR LENS; Surgeon: Raymundo Muniz M.D.; Location: [facility] OR ??? EXTRACTION CATARACT WITH INSERTION INTRAOCULAR LENS Left 07/21/2017 Procedure: EXTRACTION CATARACT WITH INSERTION INTRAOCULAR LENS; Surgeon: Raymundo Muniz M.D.; Location: [facility] OR ??? MOHS SURGERY N/A 06/23/2006 >Mohs Micrographic Surgery With Layered Closure. ??? OTHER SURGICAL HISTORY N/A 08/21/1999 Endarterectomy and angioplasty of neck artery Family History Problem Relation Age of Onset ??? Blindness Mother ??? Cataracts Mother ??? Glaucoma Mother ??? Macular degeneration Mother ??? Anesthesia problems Neg Hx Social History Socioeconomic History ??? Marital status: Spouse name: Not on file ??? Number of children: Not on file ??? Years of education: Not on file ??? Highest education level: Not on file Occupational History ??? Not on file Social Needs ??? Financial resource strain: Not on file ??? Food insecurity Worry: Not on file Inability: Not on file ??? Transportation needs Medical: Not on file Non-medical: Not on file Tobacco Use ??? Smoking status: Former Smoker ??? Smokeless tobacco: Never Used Substance and Sexual Activity ??? Alcohol use: No ??? Drug use: Defer ??? Sexual activity: Defer Lifestyle ??? Physical activity Days per week: Not on file Minutes per session: Not on file ??? Stress: Not on file Relationships ??? Social connections Talks on phone: Not on file Gets together: Not on file Attends taoism service: Not on file Active member of club or organization: Not on file Attends meetings of clubs or organizations: Not on file Relationship status: Not on file ??? Intimate partner violence Fear of current or ex partner: Not on file Emotionally abused: Not on file Physically abused: Not on file Forced sexual activity: Not on file Other Topics Concern ??? Not on file Social History Narrative ??? Not on file The following portions of the patient's history were reviewed and updated as appropriate: allergies,current medications, family history, medical history, social history, surgical history and problem list. REVIEW OF SYSTEMS All other systems reviewed and are negative. OBJECTIVE PHYSICAL EXAM Vitals: 01/18/20 1055 BP: 114/69 Patient Position: Sitting Pulse: 62 Temp: 36.6 ??C Resp: 16 Height: 167 cm Weight: 67.2 kg SpO2: 94% TempSrc: Temporal Vitals signs and nursing note reviewed. Constitutional Appearance: Normal appearance. He is well-developed. HENT Head: Normocephalic and atraumatic. Right Ear: Tympanic membrane, ear canal and external ear normal. Left Ear: Tympanic membrane, ear canal and external ear normal. Nose: Nose normal. Mouth/Throat: Mouth: Mucous membranes are moist. Pharynx: Oropharynx is clear. Eyes Conjunctiva/sclera: Conjunctivae normal. Neck Musculoskeletal: Normal range of motion and neck supple. Thyroid: No thyromegaly. Cardiovascular Rate and Rhythm: Normal rate and regular rhythm. Heart sounds: Normal heart sounds. Pulmonary Effort: Pulmonary effort is normal. Breath sounds: Normal breath sounds. No rales. Chest Chest wall: No tenderness. Abdominal General: Bowel sounds are normal. Palpations: Abdomen is soft. Lymphadenopathy Cervical: No cervical adenopathy. Skin General: Skin is warm and dry. Findings: No rash. Neurological General: No focal deficit present. Mental Status: He is alert and oriented to person, place, and time. Psychiatric Behavior: Behavior normal. Thought Content: Thought content normal. Judgment: Judgment normal. ASSESSMENT / PLAN #1 Preoperative Exam Patient is approved for the noted procedure. Preoperative instructions discussed and understanding indicated: 1. Follow all preop hospital/center instructions. 2. IF TAKING ASPIRIN/NSAIDs: Stop aspirin/NSAIDs 1 week before procedure and resume 1 day after the procedure unless instructed otherwise 3. IF TAKING ANY ANTICOAGULANTS: Stop other anticoagulants per instructions of hospital/center or, if no instructions provided, stop anticoagulants 5 days before procedure and resume 1 day after the procedure unless instructed otherwise 4. IF TAKING METFORMIN: Hold metformin on the day of the procedure and resume 1 day after the procedure unless instructed otherwise 5. IF TAKING LOUISE INHIBITOR OR ARB (LISINOPRIL OR LOSARTAN): Hold LOUISE inhibitor/ARB/diuretic on the day of the procedure and resume 1 day after the procedure unless instructed otherwise 6. IF TAKING INSULIN: Hold basal insulin on the day of the procedure and resume once eating 7. IF TAKING SUPPLEMENTS: Stop all supplements 1 week prior to procedure and may resume 1 day after the procedure unless instructed otherwise. #2 Primary Osteoarthritis Shoulder Left Management per specialist. #3 Osteoporosis Without Pathological Fracture #4 Deficiency Vitamin D #5 Atherosclerotic Heart Disease Of [place] Coronary Artery Without Angina Pectoris #6 Hyperlipidemia #7 Peripheral Vascular Disease (HCC) #8 Stroke Cerebrovascular Accident Personal History Continue current medications and treatments. Pros/cons/side effects/alternatives and complications reviewed in detail. #9 Hyperglycemia #10 Gastroesophageal Reflux Disease Without Esophagitis Stable. #11 Loss Hearing Bilateral Stable. documented in this encounter Consult Notes Ana Villagomez O.T. - 01/26/2020 10:51 AM CDT Occupational Therapy Inpatient Evaluation/Treatment SUBJECTIVE Patient's Name: Obey Vines Referring/Attending Provider: Marv Dodson M.D. Medical Diagnosis: Primary Osteoarthritis Shoulder Left [M19.012] Aftercare Total Shoulder Arthroplasty [Z47.1, Z96.619] Reason for Referral: Skilled OT referral secondary to L TSA resulting in decreased self care independence Onset Date: 01/25/20 Payor: MEDICARE / Plan: MEDICARE A AND B / Product Type: Medicare / PERTINENT MEDICAL / SURGICAL HISTORY: Patient Active Problem List Diagnosis ??? Atherosclerotic Heart Disease Of [place] Coronary Artery Without Angina Pectoris ??? Stroke [...] REVERSE SHOULDER-; Surgeon: Marv Dodson M.D.; Location: [facility] OR ??? CARPAL TUNNEL RELEASE N/A [...] INTRAOCULAR LENS; Surgeon: Raymundo Muniz M.D.; Location: [facility] OR ??? EXTRACTION CATARACT WITH INSERTION INTRAOCULAR LENS Left 07/21/2017 Procedure: EXTRACTION CATARACT WITH INSERTION INTRAOCULAR LENS; Surgeon: Raymundo Muniz M.D.; Location: [facility] OR ??? MOHS SURGERY N/A 06/23/2006 >Mohs Micrographic Surgery With Layered Closure. ??? 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[employer]) Home Living Type of Home: House Home Layout: One level Home Layout Comments: one level living except will go to basement for the walk in shower Home Access: Stairs to enter with rails Entrance Stairs: Rails: Both Entrance Stairs: Number of Steps: 4 Bathroom Shower/Tub: Walk-in shower Bathroom Accessibility: Yes Home Equipment Bathroom Equipment: Grab bars in shower, Raised toilet seat with rails, Grab bars around toilet Dominant Hand: Right Family/Caregiver Present: No Patient/Caregiver Goals: to return home with spouse support Patient Comments: My arm feels Activity Orders (From admission, onward) Start Ordered 01/25/20 1633 Activity: Up with Assistance Until discontinued Question: Activity Level: Answer: Up with Assistance 01/25/20 1632 01/25/20 1633 Position head of bed Until discontinued Question Answer Comment Bed position: Elevate HOB Elevate HOB: 30 degrees 01/25/20 1632 Precautions Weight Bearing Status: NWB LUE Other Precautions: L TSA precautions Fall Risk (65 and older) Fall in the last 12 months: No OBJECTIVE Measures - Tools AM-PAC Activity: How much help from another person does the patient currently need??? Putting on and taking off regular lower body clothing?: A Little Putting on and taking off regular upper body clothing?: A Little Taking care of personal grooming such as brushing teeth?: None Bathing (including washing, rinsing, drying)?: A Little Toileting, which includes using toilet, bedpan, or urinal?: A Little Eating meals?: None AM-PAC Activity: Score Daily Activities Raw Score (max 24): 20 Daily Activities Standardized Score: 42.03 Cognition Orientation: Oriented X4 Following Commands: Follows one step commands with increased time Cognition Comments: patient needed increased instruction with dressing and problem solving for dressing; General ROM / Strength Screening ROM - Upper Extremity Screen: Impaired left Strength - Upper Extremity Screen: Impaired left Current ADL/IADL Function Eating: Independent Grooming: Independent Upper Body Dressing: Supervision or touching assistance Lower Body Dressing: Supervision or touching assistance Toileting: Supervision or touching assistance Education completed with patient and spouse regarding dangle method for hygiene and dressing. Education with safety for LE dressing in seated. Patient has ability to open/close fist but his distal armis still numb and shows decreased active motion. Guided through the distal ROM ex including elbow flexion/ext, pron/sup, wrist flex/ext, ulnar/rad deviation and fisting. Patient and spouse report understanding. He was able to dress self with minimal cues for safety and sequencing and guidance with onehanded techniques. He needed minimal assist for don/doff sling. Spouse is available to assist. He was able to toilet self with one handed technique. Outpatient PT set up for patient Friday, Feb 06 in [place] for further shoulder exercises. Education with home safety and bathroom recommendations made. Contact monitoring: PPE used during therapy: Therapist was wearing the following PPE throughout entire session: surgicalmask and eye protection Assessment Discharge Considerations: Discharge Recommendation: Ongoing skilled outpatient therapy recommeded Clinical Impression: Mr. Vines is a 80 y.o. who was admitted to the hospital with a diagnosis of: Primary Osteoarthritis Shoulder Left [M19.012] Aftercare Total Shoulder Arthroplasty [Z47.1, Z96.619]. Prior to hospitalization patient was completing daily activities independently. Currently, patient presents with impairments including L shoulder immobilization resulting in the following functional deficits: difficulty with self cares. Rehab potential: Mr. Vines has good potential to achieve established occupational therapy goals within the time frame outlined below. Education was provided regarding evaluative findings, diagnosis, prognosis, potential risks and benefits of rehabilitation interventions. Comorbidities: OA, hx CVA, PVD, osteoporpsos Personal Factors: Age Occupational Profile and History review: Brief Performance Deficits: 1 - 3 performance deficits Evaluation Complexity: Low Functional Goals and Timeframes: OT Inpatient Goals OT Goal #1: Patient will dress self with supervision following TSA precautions OT Goal #1 Date: 01/26/20 OT Goal #2: Patient will toilet self with supervision OT Goal #2 Date: 01/26/20 OT Goal #3: Patient will complete distal ROM ex with supervision OT Goal #3 Date: 01/26/20 Plan Patient agrees with the plan of care and goals. OT Frequency: One-time visit OT Duration: one time visit Inpatient OT Received On Date: 01/26/20 Requires Inpatient Follow-Up: No Next Inpatient Appointment: Plan for next session: NA Treatment interventions may include: Self-care/home management, Therapeutic exercise Time Spent with Patient OT Evaluation (min): 20 min Home Management Training (min): 30 min Therapeutic Exercise (min): 15 min Time Calculation Total Timed Units (min): 45 min Total Treatment Time (min): 65 min Ana Villagomez O.T. [facility], Third Floor [address] [facility] [address] Dept: [phone] Fortunato Davenport M.D. - 01/25/2020 6:33 PM CDT REFERRAL SOURCE Dr. Dodson REASON FOR CONSULT Medical management HISTORY OF PRESENT ILLNESS Patient has been increasingly bothered by arthritic pain in his left shoulder. Underwent uncomplicated replacement today. Pain control excellent with block so far. He does have some tingling in his hand. MEDICATIONS Current Outpatient Medications on File Prior to Encounter Medication Sig Last Dose ??? atorvastatin (for_LIPITOR) 80 mg tablet Take 80 mg by mouth daily. 01/24/2020 at AM ??? metoprolol succinate (TOPROL-XL) 25 mg 24 hr tablet Take 0.5 tablets (12.5 mg total) by mouth daily. (Patient taking differently: Take 25 mg by mouth daily. ) 01/24/2020 at AM ??? pantoprazole (PROTONIX) 40 mg EC tablet Take 40 mg by mouth daily. 01/24/2020 at AM ??? ZETIA 10 mg tablet Take 10 mg by mouth daily. 01/24/2020 at AM ??? aspirin-calcium carbonate 81 mg-300 mg calcium(777 mg) tablet Take 1 tablet by mouth. 01/20/2020 ??? clopidogreL (PLAVIX) 75 mg tablet Take 75 mg by mouth. 01/20/2020 ??? nitroglycerin (for_NITROSTAT) 0.[address] 1 tablet under the tongue every 5 (five) minutes as needed for chest pain. More than a month at Unknown time ALLERGIES Allergies Allergen Reactions ??? Oxycodone Other (see comments) Confusion PAST MEDICAL HISTORY Past Medical History: Diagnosis Date ??? Cataract ??? Coronary Artery Disease (Unspecified) ??? [place] Macular Bilateral ??? Fracture Vertebra Thoracic Closed Initial (HCC) 04/20/2008 ??? Non-ST Elevation Myocardial Infarction (HCC) 08/15/2018 ??? Polymyalgia Rheumatica ([facility]) 03/25/2007 ??? Post Operative Nausea/Vomiting ??? ST Elevation Myocardial Infarction Of Unspecified Site ([facility]) ??? Stroke ([facility]) PAST SURGICAL HISTORY Past Surgical History: Procedure Laterality Date ??? ARTHROPLASTY OF SHOULDER N/A 03/23/2015 Arthroplasty of the shoulder ??? CARPAL TUNNEL RELEASE N/A 02/24/2007 >Right [...] INTRAOCULAR LENS; Surgeon: Raymundo Muniz M.D.; Location: [facility] OR ??? EXTRACTION CATARACT WITH INSERTION INTRAOCULAR LENS Left 07/21/2017 Procedure: EXTRACTION CATARACT WITH INSERTION INTRAOCULAR LENS; Surgeon: Raymundo Muniz M.D.; Location: [facility] OR ??? MOHS SURGERY N/A 06/23/2006 >Mohs Micrographic Surgery With Layered Closure. ??? OTHER SURGICAL HISTORY N/A 08/21/1999 Endarterectomy and angioplasty of neck artery Patient confirms that he had carotid endarterectomy SOCIAL HISTORY Social History Socioeconomic History ??? Marital status: Spouse name: Not on file ??? Number of children: Not on file ??? Years of education: Not on file ??? Highest education level: Not on file Occupational History ??? Not on file Social Needs ??? Financial resource strain: Not on file ??? Food insecurity Worry: Not on file Inability: Not on file ??? Transportation needs Medical: Not on file Non-medical: Not on file Tobacco Use ??? Smoking status: Former Smoker ??? Smokeless tobacco: Never Used Substance and Sexual Activity ??? Alcohol use: No ??? Drug use: Defer ??? Sexual activity: Defer Lifestyle ??? Physical activity Days per week: Not on file Minutes per session: Not on file ??? Stress: Not on file Relationships ??? Social connections Talks on phone: Not on file Gets together: Not on file Attends taoism service: Not on file Active member of club or organization: Not on file Attends meetings of clubs or organizations: Not on file Relationship status: Not on file ??? Intimate partner violence Fear of current or ex partner: Not on file Emotionally abused: Not on file Physically abused: Not on file Forced sexual activity: Not on file Other Topics Concern ??? Caffeine Concern Not Asked Social History Narrative ??? 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 Moved in to the town of [facility] with his . Quit smoking 15 years ago. Confirms he does not drink alcohol. FAMILY HISTORY Family History Problem Relation Age of Onset ??? Blindness Mother ??? Cataracts Mother ??? Glaucoma Mother ??? Macular degeneration Mother ??? Anesthesia problems Neg Hx Mom age 94 of a stroke, Dad age 75 of an apparently unprovoked pulmonary embolus REVIEW OF SYSTEMS Says he can walk several blocks. Weight stable. Told me he never gets chest pain. When I asked him when his last nitro glycerin was he says he only took 1 is life in that was many years ago. No other respiratory cardiac GI neurologic endocrine psychiatric allergy skin or constitutional symptoms are endorsed VITAL SIGNS Vitals: 01/25/20 1808 BP: 104/76 Pulse: 71 Resp: 18 Temp: 36.4 ??C SpO2: 96% PHYSICAL EXAM Sitting up in bed in no distress. Vital signs normal as above, with relatively soft blood pressures Lungs: Clear, no respiratory distress Cardiac: No murmur, pulses 2+ and regular Abdomen: Flat, soft, nontender, benign Extremities: L arm in sling, bandages on shoulder, hand warm, 2+ pulses, has tingling but can feel me touch him. Ankles no edema Skin: Warm, pink, dry Neurologic: Alert, nonfocal LAB RESULTS Lab Results Component Value Date WBC 8.2 01/18/2020 HGB 15.8 01/18/2020 HCT 46.4 01/18/2020 MCV 91.2 01/18/2020 PLT 215 01/18/2020 Lab Results Component Value Date NA 139 01/18/2020 K 4.5 01/18/2020 CL 102 01/18/2020 HCO3 23 08/16/2018 CREATININE 1.12 01/18/2020 EGFR 63 01/18/2020 BUN 14 01/18/2020 ANIONGAP 12 01/18/2020 GLUCOSE 109 01/18/2020 CALCIUM 9.7 01/18/2020 Lab Results Component Value Date ALT 25 08/15/2018 AST 62 (H) 08/15/2018 ALKPHOS 142 (H) 08/15/2018 BILITOT 1.2 08/15/2018 Lab Results Component Value Date CKMB 6.9 (H) 12/20/2011 Lab Results Component Value Date URINESOURCE Midstream 08/15/2018 CLARITYU Clear 08/15/2018 COLORU Yellow 08/15/2018 NITRITEU Negative 08/15/2018 LEUKOCYTESU Moderate (A) 08/15/2018 PROTEINQUALU 30 (A) 08/15/2018 GLUCOSEU Negative 08/15/2018 KETONESU 15 (A) 08/15/2018 BILIRUBINU Negative 08/15/2018 PHURINE 6.0 08/15/2018 SPECGRAV 1.020 08/15/2018 UROBILINOGEN 0.2 08/15/2018 DIAGNOSTICS Non-radiology Image-surgery Image Exam Result Date: 01/25/2020 Narrative: This order has been created and auto-finalized to support the import of images acquired without order. The clinical documentation to support these images can be found on the encounter that produced images. IMPRESSION/REPORT/PLAN Patient Active Problem List Diagnosis ??? Atherosclerotic Heart Disease Of [place] Coronary Artery Without Angina Pectoris ??? Stroke Cerebrovascular Accident Personal History ??? Peripheral Vascular Disease (HCC) ??? Osteoporosis Without Pathological Fracture ??? Hyperlipidemia ??? Deficiency Vitamin D ??? Hyperglycemia ??? Gastroesophageal Reflux Disease Without Esophagitis ??? Loss Hearing Bilateral ??? Primary Osteoarthritis Shoulder Left ??? 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 Dodson. #1 Left reverse total shoulder arthroplasty for osteoarthritis under general anesthesia with block January 24 No complications, doing well postop. Respiratory status good. Will try tramadol for pain if/when it develops as block wears off. This surgery is low risk for embolism and resumption of clopidogrel willoffer preventive affect. #2 Diffuse vascular disease with asymptomatic coronary disease status post stents, carotid disease status post endarterectomy, peripheral vascular disease, all currently asymptomatic #3 Dyslipidemia He continues clopidogrel (stopped just [address] Groves standard instructions, may still have some affect), high-dose statin and low-dose beta- julian. He was prescribed 12.5 mg of metoprololdaily but had worked up to 25. Explained that he will get 12.5 in the morning unless his blood pressure goes up. If no complications clopidogrel could be started January 25 (Dr. Givens's recommendation which was generic and directed towards warfarin) or . #4 History postop nausea and vomiting and, intolerant of oxycodone He has a little bit a nausea now and has received ondansetron, discussed the use of tramadol and acetaminophen. He is very interested in what medicines he is going to get and what doses and I explainedthem. #5 Hard of hearing, reflux disease, previous polymyalgia rheumatica which resolved Continue pantoprazole HOSPITAL CARE ISSUES Code status: Full Code IV fluids: IV and Feeding Tubes Active Currently Name: Placement date: Placement time: Site: Days: Peripheral IV Catheter 01/25/20 20 G Right Hand 01/25/20 1051 Hand less than 1 Diet:Current Diet Room service starting at 01/24 1654 Adult Diet Regular starting at 01/24 1633 VTE PPX: I recommend resumption of clopidogrel 75 mg a day either the morning of January 25 or January [address] the [address] Dodson Discharge planning Expect discharge home I with his driving and assisting in his care on January 25 if no complications develop Hospital medicine will sign off. Multidisciplinary team aware of the plan. Thank you for the consultation and please contact us with any questions. and my partners will be around in the morning 60 minutes spent on consultation today, many questions answered for patient documented in this encounter Nursing Notes Rhonda Abarca R.N. - 01/26/2020 10:55 AM CDT Shift Goals: Clinical Goals for the Shift: Patient discharge to home Identify possible barriers to meeting goals/advancing plan of care: none Problem: PAIN - ADULT Goal: PT VERBALIZES/DEMONSTRATES ADEQUATE COMFORT LEVEL OR BASELINE Outcome: Completed Problem: KNOWLEDGE DEFICIT Goal: Patient/family/caregiver demonstrates understanding of disease process, treatment plan, medications, and discharge instructions Outcome: Completed Problem: INFECTION - ADULT Goal: Absence of infection during hospitalization Outcome: Completed Problem: SKIN/TISSUE INTEGRITY Goal: Skin/Tissue integrity maintained or improved Outcome: Completed Goal: Oral and Nasal mucous membranes remain intact Outcome: Completed Problem: SAFETY ADULT Goal: Maintain a safe environment Outcome: Completed Problem: DISCHARGE PLANNING Goal: Patient discharge needs identified Outcome: Completed Problem: SAFETY ADULT - RISK FOR FALL AND OR FALL INJURY Goal: Patient remains free from fall/fall injury Outcome: Completed Problem: POTENTIAL OR ACTUAL PRESSURE INJURY-ADULT Goal: Manage sensory Perception deficits to maintain and/or improve skin integrity Outcome: Completed Goal: Maintain optimal skin moisture to ensure or improve skin integrity Outcome: Completed Goal: Achieve optimal activity and/or mobility to maintain or improve skin integrity Outcome: Completed Goal: Nutrient intake appropriate for improving, restoring or maintaining skin integrity Outcome: Completed Goal: Minimize friction and/or shear to maintain or improve skin integrity Outcome: Completed Problem: Compromised Skin Integrity Goal: Skin/Tissue integrity maintained or improved Outcome: Completed Goal: Oral and Nasal mucous membranes remain intact Outcome: Completed Goal: Incisions, wounds, or drain sites healing without S/S of infection Outcome: Completed Problem: Incontinence and/or Moisture Goal: Skin integrity is maintained or improved Outcome: Completed Problem: MUSCULOSKELETAL - ADULT Goal: Return mobility to safest level of function Outcome: Completed Goal: Maintain proper alignment of affected body part Outcome: Completed Goal: Optimize ADL status Outcome: Completed End of Shift Summary: Patient discharged to home with spouse. Discharge paperwork went over and copysent with patient. Desiree Shepard R.N. - 01/26/2020 5:06 AM CDT Problem: PAIN - ADULT Goal: PT VERBALIZES/DEMONSTRATES ADEQUATE COMFORT LEVEL OR BASELINE Outcome: Progressing Problem: KNOWLEDGE DEFICIT Goal: Patient/family/caregiver demonstrates understanding of disease process, treatment plan, medications, and discharge instructions Outcome: Progressing Problem: SAFETY ADULT - RISK FOR FALL AND OR FALL INJURY Goal: Patient remains free from fall/fall injury Outcome: Progressing Problem: MUSCULOSKELETAL - ADULT Goal: Maintain proper alignment of affected body part Outcome: Progressing Shift Goals: Clinical Goals for the Shift: Pt will report adequate pain control this shift. Identify possible barriers to meeting goals/advancing plan of care: None End of Shift Summary: L arm remains in sling. Pt denies pain. Continues to have residual numbness and tingling in his L arm from surgery. Slowly improving per pt. Bed alarm on for safety. Rhonda Abarca R.N. - 01/25/2020 5:42 PM CDT Shift Goals: Clinical Goals for the Shift: Patient will remain free from falls Identify possible barriers to meeting goals/advancing plan of care: Problem: PAIN - ADULT Goal: PT VERBALIZES/DEMONSTRATES ADEQUATE COMFORT LEVEL OR BASELINE Outcome: Progressing Problem: KNOWLEDGE DEFICIT Goal: Patient/family/caregiver demonstrates understanding of disease process, treatment plan, medications, and discharge instructions Outcome: Progressing Problem: SAFETY ADULT Goal: Maintain a safe environment Outcome: Progressing Problem: SAFETY ADULT - RISK FOR FALL AND OR FALL INJURY Goal: Patient remains free from fall/fall injury Outcome: Progressing End of Shift Summary: Patient free from falls. Call light with in reach and bed alarm on. Patient checked on every hour. documented in this encounter OR Notes Op Note - Marv Dodson M.D. - 01/25/2020 3:03 PM CDT PROCEDURE(S) Left reverse total shoulder arthroplasty. SURGEON(S) Marv Dodson MD. STORE CLERK CASHIER: Laine Day PA-C. I requested Laine to assist with left reverse total shoulder arthroplasty. Assistance was medically necessary in order to safely perform the procedure without increased blood loss or morbidity. Assistance was provided through positioning, instrumentation, and retraction of incisions for better visualization of underlying structures and cauterization for hemostasis. Assistance wasalso provided through wound closure, instillation of anesthetic, application of sterile dressing, and safe transport from the operative suite. ANESTHESIA TYPE General. PRE-OPERATIVE DIAGNOSIS Left rotator cuff arthropathy of the shoulder. POST-OPERATIVE DIAGNOSIS Left rotator cuff arthropathy of the shoulder. FINDINGS The patient did have advanced osteoarthritis to his left shoulder, with a torn rotator cuff, as expected. COMPLICATIONS None. DESCRIPTION OF PROCEDURE The patient was identified in the preoperative holding area. All of his questions were answered. Hisleft shoulder was marked with indelible marking pen. Consent was reviewed and signed. He was broughtback to the block room, where Anesthesia performed a regional block. He was then brought back to theoperating theater, where he was placed supine on the operating table. All bony prominences were padded appropriately. General LMA was performed. He was then placed in the beach-chair position, with allof his bony prominences padded appropriately, as well as a padded head positioner. His left upper extremity was pre-prepped with chlorhexidine and alcohol, and then prepped and draped in the normal sterile fashion. A surgical time-out was done to verify correct patient, correct limb, and correct procedure. Antibiotics and tranexamic acid were administered per protocol. At this point in time, I made adeltopectoral incision and carried this down through subcutaneous tissue with electrocautery for hemostasis to identify the deltopectoral interval and the cephalic vein. The cephalic vein was mobilizedand retracted medially, and the clavipectoral fascia was identified. The clavipectoral fascia was taken down over the top of the long head of the biceps. The bicipital tendon was taken out of its bicipital groove with a scissors and then truncated anterior articularly. I then performed a biceps tenodesis to the pectoralis tendon with 0-Ethibond suture. We then removed the residual intra-articular portion of the long head of the biceps. We then took down the subscapularis tendon and tagged this with #2 FiberWire for later repair. I then took down the circumflex vessels, and I was able to take down the capsule inferiorly all the way to the posterior aspect of the humeral neck. At this point in time,the head was delivered out of the incision. A starting awl was used to find the starting point for our reamers, and reamed up to size 12. I then placed the cut guide on the reamer and made my neck cut.At this point, we were able to debris the osteophytes with a rongeur, and then using metaphyseal reamers, I was able to open the proximal humerus, and then impact the trial stem in place. We then turned our attention to the glenoid. Using an anterior and a posterior inferior Batman retractor, I was able to expose the glenoid, remove the residual glenoid labrum, and scrape the residual cartilage from the glenoid surface. I placed acentral pin inferior to the equator and then drilled over the top of this with a guide drill and reamed the surface of the glenoid. After reaming the surface of the glenoid, we drilled a 15-mm peg holeand removed the guide pin. At this point in time, we were able to irrigate the shoulder and impact the 15-mm central peg glenoid base plate and placed our inferior and superior screws with locking caps. At this point in time, I was able to irrigate the base plate, dry the base plate, and impact and the 36 Glenosphere onto the base plate. We then dislocated the shoulder, removed the trial stem, pounded in the 12 x 130 stem, seating down appropriately with the appropriate retroversion. At this point, we trialed the +0 liner. The shoulder moved quite nicely, with good stability and range of motion. Ever removed the trial liner, irrigated the humeral stem, and impacted the 36+0 liner onto the humeral stem. This locked down appropriately. We reduced the shoulder and soaked the shoulder in dilute Betadine solution for 3 minutes. We then closed the subscapularis with the FiberWire. We closed the deltopectoral interval with 0 Vicryl interrupted sutures, subcutaneous tissue with 2-0 Vicryl interrupted, and the skin with 4-0 Monocryl and Dermabond. Aquacel dressing was placed. The patient was placed in a sling and awoken from his anesthesia and transferred to the PACU in stable condition. DISPOSITION: The patient will be admitted to the hospital for the reverse total shoulder arthroplasty protocol. Oral and IV pain medications and mechanical DVT prophylaxis. He will follow the reverse total shoulderarthroplasty PT protocol. Therapy will see him while he is in house. The Medicine Team will consult on him, and we will plan on discharge when he reaches candidacy for discharge. He will followup in the Orthopedic Clinic in 2 weeks, sooner if issues, questions, or concerns. SPECIMENS None ESTIMATED BLOOD LOSS 60 mL. IMPLANTS Lisa reverse size 15-mm base plate with a 27-mm inferior screw, with 36-mm superior screw and locking caps. A 36 Glenosphere. A 12 x 130 humeral stem, with a 36+0 liner. INDICATION FOR PROCEDURE: Obey is a 80-year-old gentleman with a long-standing history of left shoulder pain, with a known rotator cuff tear and degenerative changes in his shoulder. We have treated him conservatively for the last few years, but ultimately his symptoms continue to be an issue, even with conservative intervention. We discussed the options for treatment, including reverse total shoulder arthroplasty, and he desired to proceed. TPR: [address] Job ID: [id number] Brief Op Note - Marv Dodson M.D. - 01/25/2020 1:57 PM CDT BRIEF OP NOTE Procedure(s) (LRB): ARTHROPLASTY TOTAL REVERSE SHOULDER- (Left) Surgeon(s) and Role: * Marv Dodson M.D. - Primary * Laine Day P.A.-C. - Perinatal Educator Anesthesia Type General with pain block Pre-operative Diagnosis Primary Osteoarthritis Shoulder Left Post-operative Diagnosis Primary Osteoarthritis Shoulder Left Findings As expected. Complications None Specimens None Drains None Estimated Blood Loss 60 mL Implants Implant Name Type Inv. Item Serial No. Deburring Technician Lot No. [id number] No. Used Action anatomic reverse shoulder screw syssh Shoulder Implant NA [employer] Puppet[employer] [id number] Left 1 Implanted BSPLT GLND TRB 15 - SNA - [id number] Shoulder Implant BSPLT GLND TRB 15 NA Lisa [employer]omet [id number] [address] FTHRD LCK 4.5X36 - SNA - [id number] Shoulder Implant SCRW PRT ST FTHRD LCK 4.5X36 NA Lisa [employer] [id number] Left 1 Implanted COMP GLND TRB 36 - SNA - [id number] Shoulder Implant COMP GLND TRB 36 NA Lisa [employer] [id number] Left 1 Implanted humeral stem Shoulder Implant NA Lisa [employer] [id number] Left 1 Implanted SHLDR LNR TRB RVRS +0X36 - SNA - [id number] Shoulder Implant SHLDR LNR TRB RVRS +0X36 NA Lisa [employer] [id number] Left 1 Implanted Marv Dodson M.D. documented in this encounter Plan of Treatment Scheduled Referrals Name Type Priority Associated Order Schedule Diagnoses Orthopedic Surgery Outpatient Referral Routine Ex pected: office visit 02/05/2020 (clinic) (Approximate), Expires: 01/25/2023 documented as of this encounter Procedures Procedure Name Priority Date/Time Associated Diagnosis Comme nts HEMOGLOBIN, B Routine 01/26/2020 5:47 Results for this AM CDT procedure are i n the results section. ADULT OXYGEN THERAPY Routine 01/25/2020 4:32 PM CDT ADULT OXYGEN THERAPY Routine 01/25/2020 4:32 PM CDT PULSE OXIMETRY, Routine 01/25/2020 4:32 CONTINUOUS PM CDT PULSE OXIMETRY, Routine 01/25/2020 4:32 CONTINUOUS PM CDT ARTHROPLASTY TOTAL 01/25/2020 1:09 Primary Osteoarthri tis REVERSE SHOULDER PM CDT Shoulder Left documented in this encounter Results Hemoglobin (01/26/2020 5:47 AM CDT) P athologist Signature Hemoglobin 13.9 13.2 - 16.6 01/26/2020 [facility] g/dL 6:24 AM CDT Specimen Anatomical Collection Method Collection Time Receive d Time (Source) Location / / Volume Laterality Blood (Blood, 01/26/2020 5:47 AM 01/26/20 20 6:21 Venous) CDT AM CDT Ed L Issac Antonio LAB BLOOD ADD-ON Performing Organization Address City/State/ZIP Code Phon e Number [facility]- [place] Car[place] [address] [place] [address] System in [place] [address] documented in this encounter Visit Diagnoses Diagnosis Primary Osteoarthritis Shoulder Left - P rimary Aftercare Total Shoulder Arthroplasty Primary Osteoarthritis Shoulder Left documented in this encounter Admitting Diagnoses Diagnosis Primary Osteoarthritis Shoulder Left documented in this encounter Administered Medications Inactive Administered Medications - up to 3 most recent administrations Medication Order MAR Action Action Date Dose Rate Site acetaminophen tablet 1,000 mg Given 01/26/2020 5:27 AM CDT 1,000 mg (TYLENOL) 1,000 mg, oral, Every 6 hours, First dose on Fri01/25/20 at 1800 Given 01/26/2020 12:04 AM CDT 1,000 mg Given 01/25/2020 6:31 PM CDT 1,000 mg atorvastatin tablet 80 mg (LIPITOR) Given 01/26/2020 8:40 AM CDT 80 mg 80 mg, oral, Daily, First dose on Fri01/26/20 at 0900 lactated ringers Rate/Dose Verify 01/26/2020 5:31 AM CDT 50 mL/hr 50 mL/hr 50 mL/hr, intravenous, Continuous, Starting on Fri01/25/20 at 1645 New Bag 01/26/2020 12:11 AM CDT 50 mL/hr 50 mL/hr Rate/Dose Verify 01/25/2020 9:11 PM CDT 50 mL/hr 50 mL/hr metoprolol succinate 24 hr tablet 12.5 mg Given 01/26/2020 8:40 AM CDT 12.5 mg (TOPROL-XL) 12.5 mg, oral, Daily, First dose on Fri01/26/20 at 0900, Hold and notify provider for heart rate under 50 or systolic blood pressure under 100 Do NOT crush or chew. Tablet may be split on score if needed. ondansetron (PF) injection 4 mg (ZOFRAN) Given 01/25/2020 5:16 PM CDT 4 mg 4 mg, intravenous, Every 6 hours PRN, nausea, vomiting, Starting on Fri01/25/20 at 1632, For 48 hours, Reassess for nausea or vomiting after at least 10 minutes. If nausea or vomiting persists administer next ordered antiemetic medications (order for antiemetic medication administration ondansetron then droperidol then promethazine). pantoprazole DR tablet 40 mg (PROTONIX) Given 01/26/2020 8:40 AM CDT 40 mg 40 mg, oral, Daily, First dose on Fri01/26/20 at 0900, Swallow whole. Do NOT crush, chew, or split tablet. sennosides-docusate sodium 8.6-50 mg per Given 01/26/2020 8:40 A M CDT 1 tablet tablet 1 tablet (SENOKOT-S) 1 tablet, oral, 2 times daily, First dose on Fri01/25/20 at 2100, Do not give if patient has diarrhea. Given 01/25/2020 9:11 PM CDT 1 tablet traMADoL tablet 100 mg (ULTRAM) 100 mg, oral, Every 6 hours PRN, moderat e pain or score 4-6 of 10, severe pain or score 7-10 of 10, Starting on Fri 0 at 1632, First line therapy or for pain greater than comfort goal (not to exceed 400 mg in 24 hours)., Drug Monitoring Program: Pharmacist to adjust medication dosing based on indication and drug clearance factors. traMADoL tablet 50 mg (ULTRAM) 50 mg, oral, Every 6 hours PRN, mild pain or score 1-3 of 10, Starting on Fri01/25/20 at 1632, First line therapy, Angel g Monitoring Program: Pharmacist to adjust medication dosing based on indication and drug clearan ce factors. documented in this encounter Active and Recently Administered Medications Times are shown in CDT. Scheduled Medication Order 01/24/2020 01/25/2020 01/26/2020 acetaminophen tablet 1,000 mg (TYLENOL) (COMPLETED) 1042 (Given - Provider: Arti Giron R.N.) 1,000 mg, oral, Once, On Fri01/25/20 at 1030, For 1 dose, Pre-Op, In PreOp holding (PWA) acetaminophen tablet 1,000 mg (TYLENOL) 1831 (Given - Provider: Rhonda Mancilman, R.N.) 0004 (Given - Provider: Desiree Shepard R.N.)0527 (Given - Provider: Desiree Shepard R.N.) 1,000 mg, oral, Every 6 hours, First dose on Fri01/25/20 at 1800 atorvastatin tablet 80 mg (LIPITOR) 0840 (Given - Provider: Rhonda Abarca R.N.) 80 mg, oral, Daily, First dose on Fri01/26/20 at 0900 ceFAZolin in dextrose (iso-osm) IVPB 2 g (ANCEF) (COMPLETED) 1342 (Given - Provider: Neptali Boyce APRN, JONATHAN, R.N.) 2 g (rounded from 1.74 g = 25 mg/kg ? 69.6 kg), intravenous, at 100 mL/hr, Administer over 30 Minutes, Once, On Fri01/25/20 at 1030, For 1 dose, Intra-Op, Preoperatively within 1 hour prior to surgical incision premix bag, Drug Monitoring Pr ogram: Pharmacist to adjust medication dosing based on indication and drug clearance factors., Indications: Prophylaxis, surgical ceFAZolin in dextrose (iso-osm) IVPB 2 g (ANCEF) (COMPLETED) 2110 (New Bag - Provider: Desiree Shepard R.N.) 05 (New Bag - Provider: Desiree Shepard R.N.) 2 g, intravenous, at 100 mL/hr, Administ er over 30 Minutes, Every 8 hours, First dose on Fri01/25/20 at 2100, For 2 doses, Start within 8 hours of last IV dose. premix bag, Drug Monitoring Program: Zoey malhotra to adjust medication dosing based on indication and drug clearance factors., Indications: Prophylaxis, surgical metoprolol succinate 24 hr tablet 12.5 mg (TOPROL-XL) 0840 (Given - Provider: Rhonda Abarca R.N.) 12.5 mg, oral, Daily, First dose on Fri01/26/20 at 0900, Hold and notify provider for heart rate under 50 or systolic blood pressure under 100 Do NOT crush or chew. Tablet may be split on score if needed. pantoprazole DR tablet 40 mg (PROTONIX) 0840 (Given - Provider: Rhonda Abarca R.N.) 40 mg, oral, Daily, First dose on Fri at 0900, Swallow whole. Do NOT crush, chew, or split tablet. sennosides-docusate sodium 8.6-50 mg per tablet 1 tablet (SE NOKOT-S) 2111 (Given - Provider: Desiree Shepard R.N.) 0840 (Given - Provider: Rhonda Abarca R.N.) 1 tablet, oral, 2 times daily, First dos e on Fri01/25/20 at 2100, Do not give if patient has diarrhea. Continuous Medication Order 01/24/2020 01/25/2020 01/26/2020 lactated ringers (CANCELED) 1118 (New Ba g - Provider: Marv Simmons APRN, KNIFE MACHINE OPERATOR)1306 (Anesthesia Volume Adjustment - Provider: Neptali Boyce APRN, JONATHAN, R.N.)1352 (New Bag - Provider: Neptali Boyce APRN, JONATHAN, R.N.)1453 (Canceled Entry - Provider: Anjel Zayas) 20 mL/hr, intravenous, Continuous, Starting on Fri01/25/20 a t 1030, Pre-Op 1505 (Anesthesia Volume Adjustment - Provider: Anjel Zayas) lactated ringers 1645 (Rate/Dose Mcdonald ge - Provider: Rhonda Abarca R.N.)2111 (Rate/Dose Verify - Provider: Desiree Shepard R.N.) 0011 (New Bag - Provider: Desiree Shepard R.N.)0531 (Rate/Dose Verify - Provider: Desiree Shepard R.N.)0631 (Stopped - Provider: Desiree Shepard R.N.) 50 mL/hr, intravenous, Continuous, Starting on Fri01/25/20 at 16 45 PRN Medication Order 01/24/2020 01/25/2020 01/26/2020 alum-mag hydroxide-simeth 200-200-20 mg/5 mL suspension 30 mL (M AALOX) 30 mL, oral, Every 4 hours PRN, indigestion, Starting Fri 0 at 1632 benzocaine-menthoL 15-3.6 mg per lozenge 1 lozenge (CEPACOL) 1 lozenge, oral, As needed, sore throat, Starting Fri01/25/20 at 1632 calcium carbonate chewable tablet 400 mg of calcium (TUMS) 400 mg of calcium, oral, Every 2 hour GA N, indigestion, Starting Fri01/25/20 at 1632, Doses listed are in mg of elemental calcium. Take with food. 500 mg calcium carbonate contains 200 mg of elemental calcium. HYDROmorphone injection 0.5 mg (DILAUDID) 0.5 mg, intravenous, Every 2 hour PRN, s evere pain or score 7-10 of 10, Starting Fri01/25/20 at 1632, For 2 doses, May administer if pain is greater than 7 after scheduled and PRN regimen exhausted. If pain remains greater than 7, notify primary service. loratadine tablet 10 mg (CLARITIN) 10 mg, oral, Daily PRN, allergies, for o pioid induced pruritus, Starting Fri01/25/20 at 1632, Drug Monitoring Program: Pharmacist to adjust medication dosing based on indication and drug clearance factors. naloxone injection 0.2 mg (NARCAN) 0.2 mg, intravenous, As needed, respirat ory depression, Starting Fri01/25/20 at 1632, For RASS Score -4 or less, respiratory rate of less than 8 breaths/min. Notify provider/service and rapid response team (if available at institution). nitroglycerin SL tablet 0.4 mg (NITROSTAT) 0.4 mg, sublingual, Every 5 min PRN, kannan st pain, Starting Fri01/25/20 at 1729, May administer up to 3 doses per episode. Dissolve under the tongue. Do NOT crush, chew, split or swallow tablet. ondansetron (PF) injection 4 mg (ZOFRAN) 1716 (Given - Provider: Rhonda Abarca R.N.) 4 mg, intravenous, Every 6 hours PRN, na usea, vomiting, Starting on Fri01/25/20 at 1632, For 48 hours, Reassess for nausea or vomiting after at least 10 minutes. If nausea or vomiting persists administe r next ordered antiemetic medications (o rder for antiemetic medication administration ondansetron then droperidol then promethazine). phenol 1.4 % spray 5 spray (CHLORASEPTIC) 5 spray, mouth/throat, Every 2 hour PRN, sore throat, Starting Fri01/25/20 at 1632, to mouth/throat polyvinyl alcohol-povidone (PF) ophthalmic solution 2 drop (REFR ESH CLASSIC) 2 drop, both eyes, 4 times daily PRN, dry eyes, Starting 01/04 at 1632 promethazine injection 6.25 mg (PHENERGAN) 6.25 mg, intravenous, Every 6 hours PRN, nausea, vomiting, Starting Fri01/25/20 at 1632, For 48 hours, RASS must be -2 or higher to administer. Reassess for nausea/vomiting after at least 10 minutes. If nausea or vomiting persists administer next ordered antiemetic medications (order for antiemetic medication administration ondansetron then droperidol then promethazine). traMADoL tablet 100 mg (ULTRAM)(Linked Group 1) 100 mg, oral, Every 6 hours PRN, moderat e pain or score 4-6 of 10, severe pain or score 7-10 of 10, Starting on Fri01/25/20 at 1632, First line therapy or for pain greater than comfort goal (not to exce ed 400 mg in 24 hours)., Drug Monitoring Program: Pharmacist to adjust medication dosing based on indication and drug clearance factors. traMADoL tablet 50 mg (ULTRAM) 50 mg, oral, Every 6 hours PRN, moderate pain or score 4-6 of 10, Starting Fri01/25/20 at 1551 traMADoL tablet 50 mg (ULTRAM)(Linked Group 1) 50 mg, oral, Every 6 hours PRN, mild jake n or score 1-3 of 10, Starting on Fri01/25/20 at 1632, First line therapy, Drug Monitoring Program: Pharmacist to adjust medication dosing based on indication and drug clearance factors. Linked Groups Order Group 1: traMADoL tablet 50 mg (ULTRAM)Jump to med 50 mg, oral, Every 6 hours PRN, mild jake n or score 1-3 of 10, Starting on Fri01/25/20 at 1632
First line therapy
Drug Monitoring Program: Pharmacist to adjust medication dosing based on indication and drug clearance factors. Or traMADoL tablet 100 mg (ULTRAM)Jump to med 100 mg, oral, Every 6 hours PRN, moderat e pain or score 4-6 of 10, severe pain or score 7-10 of 10, Starting on Fri01/25/20 at 1632
First line therapy or for pain greater than comfort goal (not to exceed 400 mg in 24 hours).
Drug Monitoring Program: Pharmacist to adjust medication dosing based on indication and drug clearance factors. 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 PCP - General Family Medicine 11/10/19 12/09/[address] [place] [phone] documented as of this encounter
--- OUTSIDE RECORDS SUMMARY | 2021-12-17 09:47 | XMS_ITS | Encounter Summary ---
:1940 Author Organization [facility] Address [address] [place] [address] Care Team Providers Name Role Phone Silver Givens M.D. Primary Care Provider Encounter Details Date Type Department Care Team Description 12/15/2019 Hospital Encounter Department of [place], [facility] Osteoarthritis Radiology in Fabricio Fair M.D. [place], [place] [address] [facility] [address] [place] [phone] Social History Tobacco Use Types Packs/Day [...] mg by mouth 0 01/09/20 17 daily. clopidogreL (PLAVIX) 75 mg Take 75 mg by 0 201908/20/2021 tablet mouth. metFORMIN (GLUCOPHAGE) 500 Take 1-2 tablets by 0 12/03/2013 2020 mg tablet mouth 2 (two) times a day. nitroglycerin Place 1 tablet 0 06/25/2016 022 (for_NITROSTAT) 0.4 mg SL under the tongue tablet every 5 (five) minutes as needed for chest pain. pantoprazole (PROTONIX) 40 Take 40 mg by mouth 0 11/26/2019 03/07/2020 mg EC tablet daily. documented as of this encounter Plan of Treatment Not on filedocumented as of this encounter Procedures Procedure Name Priority Date/Time Associated Diagnosis Comme nts DX SHOULDER LEFT RAD - Routine 12/15/2019 3:46 Primary Results for 2+ VIEWS (most inpatients PM CDT Osteoarthritis this proc edure and all Shoulder Left are in the outpatients) results section. documented in this encounter Results DX Shoulder Left 2+ Views (12/15/2019 3:46 PM CDT) Anatomical Region Laterality Modality Upper Extremity, Shoulder, Musculoskeletal RST LOS, Left Digital Radiography Musculoskeletal ARZ LOS, Muskuloskeletal FLA LOS Specimen (Source) Anatomical Collection Method Collection Time Re ceived Time Location / / Volume Laterality 12/15/2019 5:29 PM CDT Impressions 12/15/2019 5:31 PM CDT No acute fracture or traumatic malalignment. Moderate degenerative changes of the acromioclavicular joint w ith subacromial spurring. Degenerative change of the glenohumeral joint. Rotato r cuff insufficiency. Chronic appearing left rib deformity. Narrative 12/15/2019 5:31 PM CDT EXAM: DX SHOULDER LEFT 2+ VIEWS Procedure Note Adolfo Castillo M.D. - 12/15/2019Formatt ing of this note might be different from the original. EXAM: DX SHOULDER LEFT 2+ VIEWS IMPRESSION: No acute fracture or traumatic malalignm ent. Moderate degenerative changes of the acromioclavicular joint w ith subacromial spurring. Degenerative change of the glenohumeral joint. Rotato r cuff insufficiency. Chronic appearing left rib deformity. Marv [facility] PONCHO documented in this encounter Visit Diagnoses Diagnosis Primary Osteoarthritis Shoulder Left documented in this encounter Additional Health Concerns Assessment Noted Time PHQ-9 Depression Total Score: 2 03/08/2015 11:16 AM CS T documented as of this encounter Care Teams Machine Stuffer Automatic Relationship Specialty Start Date End Date Silver Givens M.D. PCP - General Family Medicine 11/10/19 12/09/[address] [place] [phone] documented as of this encounter
--- OUTSIDE RECORDS SUMMARY | 2021-12-17 09:47 | XMS_ITS | Encounter Summary ---
:1940 Author Organization [facility] Address [address] [place] [address] Care Team Providers Name Role Phone Silver Givens M.D. Primary Care Provider Reason for Visit Reason Comments Discharge Planning Encounter Details Date Type Department Care Team Description 01/18/2020 Clinical Communication Department of Agnes Jha Disc harge Planning Orthopedic Surgery R.N. in [address] [address] [place], [place] [phone] (Work) [phone] Social History Tobacco Use Types Packs/Day Years Used Date Smoking Tobacco: Former Smokeless Tobacco: Never Alcohol Use Standard Drinks/Week Comments No 0 (1 standard drink = 0.6 oz pure alcoho l) Sex Assigned at Date Recorded Not on file documented as of this encounter Miscellaneous Notes Telephone Encounter - Agnes Jha R.N. - 01/18/2020 2:15 PM CDT Total Joint Arthroplasty Discharge Planning Surgeon: Dr. Dodson Date of Surgery: 01/25/20 Type of surgery: Left Total Reverse Shoulder Primary Care Provider: Dr Dougherty Living Situation: 1. Services used currently: Meals on Wheels: no Lifeline: no Home Health: no Which agency: Cleaning Service: no Other: 2. Patient living situation: Alone: no With Spouse: yes With significant other: no 3. Patient current residence: House: yes Apartment/Senior Hi-Rise: no Assisted Living: no Residential Facility (SNF): no Other: no 4. Description of home environment: Two story home: no One level home: yes Split level home: no Number of stairs on entry: 3 Is there a railing: yes 5. Bathroom: Walk in shower: yes Tub only: no Combination tub and shower: no Handheld shower: no 6. Equipment that patient already has: Adaptive eating device: no Bath Bench: no Shower Chair: yes Commode: no Elevated toilet seat: yes Grab bars: no Toilet safety frame:no Oxygen: no Nebulizer: no CPAP: no Blood glucose monitor: no Two front wheeled walker: yes Four-wheeled walker with seat: no Crutches: no Cane: yes Dressing device: no Wheelchair: no Prosthesis: no List all supportive individuals/ immediate family members regardless of age or location: Spouse: yes Children: 3 adult children Discharge plan: Plan A: Home with 24 hour supervision: yes Who will be your support? Patient's spouse Relative's home: yes Residential facility (SNF): no (patient needs to call the SNF and give them their name, surgery date, type of surgery and insurance as ther may be a private cost to them and the nursing homes may not hold a spot for them) Home Care: no Outpatient therapy completed at: [facility] Discharge transportation: yes Plan B: What is the plan if plan A cannot be executed: Adult children will be able to help Surgery Nurse Planning call was completed. Total joint education completed via phone due to COVID-19pandemic. Teaching points reviewed: -Therapy will be in contact with patient to review hospital course in regards to therapy -Patient will need 24 hour a day care for at least seven days following the hospital stay -Patient will spend one-two nights in the hospital depending on the medical condition -Bring medication list with to the hospital -Gain access to a two wheeled walker to use during recovery -Would be beneficial to have toilet riser and grabber -Declutter floors prior to surgery -Therapy will call patient and go over more information -Hibiclens soap needed prior to surgery -Have shoes with good soles to ambulate, avoid socks and bare feet -Hospital staff will work with the patient on specific discharge plans during the entire hospital stay. All questions regarding recovery were answered to the best of my ability regarding activities pre and post op. Direct phone number for Triage was provided to patient for any questions that arise post operatively. 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 PCP - General Family Medicine 11/10/19 12/09/[address] [place] [phone] documented as of this encounter
--- OUTSIDE RECORDS SUMMARY | 2021-12-17 09:47 | XMS_ITS | Encounter Summary ---
:1940 Author Organization [facility] Address [address] [place] [address] Care Team Providers Name Role Phone Elsewhere, Pcp Primary Care Provider Unavailable Reason for Referral Outpatient (Routine) - Closed Specialty Diagnoses / Procedures Referred By Contact Refer red To Contact Diagnoses Pain Shoulder Left Marv Dodson M.D. [facility] Region Procedures uyk-yygr-revazufc-elbow arthrocentesis: L glenohumeral [address] [place] [phone] Referral ID Status Reason Start Date Expiration Date Visits Requ ested Visits Authorized [id number] Closed 09/08/2019 09/07/2020 1 1 Reason for Visit Reason Comments Arthritis Pain Encounter Details Date Type Department Care Team Description 09/08/2019 Office Visit Department of Marv Dodson Pain Shou lder Left Orthopedic Surgery in [place] (Primary Dx) Fabricio [place] [address] [facility] [address] [place] [phone] Social History Tobacco Use Types Packs/Day Years Used Date Smoking Tobacco: Former Smokeless Tobacco: Never Alcohol Use Standard Drinks/Week Comments No 0 (1 standard drink = 0.6 oz pure alcoho l) Sex Assigned at Date Recorded Not on file documented as of this encounter Progress Notes Marv Dodson M.D. - 09/08/2019 9:15 AM CDT SUBJECTIVE Shoulder pain. HISTORY OF PRESENT ILLNESS Obey is a 79-year-old gentleman who is known to me for his rotator cuff arthropathy of the left shoulder. 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 He states that his left shoulder has been doing reasonably well with the injections that we have been giving him. Most recent injection was done in February. He states that thepain with reaching overhead and outside the frame of his body has improved, but now over the last month or so, the symptoms have come back, so he obtained a good 4-5 months of relief of symptoms with the injection before. He denies any recent injuries or events. He denies any other major concerns today, just the discomfort in his shoulder with use. OBJECTIVE PHYSICAL EXAMINATION On clinical exam, the patient is alert and pleasant, in no acute distress. His forward elevation actively today on the left side is to 145 degrees today. External rotation is to 30 degrees with discomfort. Internal rotation and impingement tests are negative. ASSESSMENT / PLAN #1 Left shoulder rotator cuff arthropathy PLAN: At this point in time, the patient would like to move forward with another injection for his left shoulder. We discussed the risks and the benefits of this injection and he desires to proceed. PROCEDURE: Please see the procedural note for full details, but I injected 40 mg of Kenalog and 4 mLof 0.25% Marcaine plain into the glenohumeral joint of the left shoulder without complication. The patient tolerated this injection well. We will plan on seeing him back in the future as needed for his left shoulder symptoms. documented in this encounter Procedure Notes Marv Dodson M.D. - 09/08/2019 9:15 AM CDTAssociated Order(s): noj-khop-kjawuhlv-elbow arthrocentesis: L glenohumeral Post-Procedure Diagnose(s): Pain Shoulder Left Shoulder site - L glenohumeral : injection only Date/Time: 09/08/2019 9:08 AM Performed by: Marv Dodson M.D. Authorized by: Marv Dodson M.D. PROCEDURE DETAILS Procedure Location shoulder Shoulder site: L glenohumeral Site prep: patient was prepped and draped in usual sterile fashion Procedural approach: posterior Procedure performed: injection only Needle gauge: 22 G Procedural Medication The following medications were administered at the target site(s) Local anesthetic: 4 mL bupivacaine PF 0.25 % (2.5 mg/mL) Corticosteroid: 40 mg triamcinolone acetonide 40 mg/mL CONSENT Consent obtained: written PRE-PROCEDURE DETAILS Procedure purpose: diagnostic and therapeutic Indications: left shoulder pain Skin preparation: povidone-iodine SEDATION / ANESTHESIA Anesthesia method: none POST-PROCEDURE DETAILS Procedure completed successfully: yes Complications: no apparent complications Post-procedure instructions: avoid strenuous activity for 5 days Discharge instructions: dressing care and follow-up with ordering provider documented in this encounter Plan of Treatment Not on filedocumented as of this encounter Procedures Procedure Name Priority Date/Time Associated Diagnosis Comme nts IL ARTHCS ASP/INJ Routine 09/08/2019 9:15 AM Pain Shoulder Lef t Results for this MJR JRaj WO US CDT procedure are i n the results section. documented in this encounter Results IL ARTHCS ASP/INJ MJR JT WO US (09/08/2019 9:15 AM CDT) Narrative [facility] - 09/08/2019 9:15 AM CDT Marv Dodson M.D. ? 09/09/2019 ??9:15 AM Shoulder site - L glenohumeral : injecti on only Date/Time: 09/08/2019 9:08 AM Performed by: Marv Dodson M.D. Authorized by: Marv Dodson M.D. PROCEDURE DETAILS Procedure Location shoulder Shoulder site: L glenohumeral Site prep: patient was prepped and drape d in usual sterile fashion ?? Procedural approach: posterior Procedure performed: injection only Needle gauge: 22 G Procedural Medication The following medications were administe red at the target site(s) Local anesthetic: 4 mL bupivacaine PF 0. 25 % (2.5 mg/mL) Corticosteroid: 40 mg triamcinolone acet onide 40 mg/mL CONSENT Consent obtained: written PRE-PROCEDURE DETAILS Procedure purpose: diagnostic and therap eutic Indications: left shoulder pain Skin preparation: povidone-iodine SEDATION / ANESTHESIA Anesthesia method: none POST-PROCEDURE DETAILS Procedure completed successfully: yes Complications: no apparent complications ?? Post-procedure instructions: avoid stren uous activity for 5 days Discharge instructions: dressing care an d follow-up with ordering provider Marv Dodson M.D. PROCEDURE/MINOR SURGICAL ORD ERABLES Performing Organization Address City/State/ZIP Code Phon e Number [facility] [place] documented in this encounter Visit Diagnoses Diagnosis Pain Shoulder Left - Primary documented in this encounter Administered Medications Inactive Administered Medications - up to 3 most recent administrations Medication Order MAR Action Action Date Dose Rate Site bupivacaine PF 0.25 % (2.5 mg/mL) Given 09/08/2019 9:08 AM CDT 4 mL injection 4 mL (MARCAINE) 4 mL, infiltration, One-Time Injection, Starting on Fri09/08/19 at 0908, For 1 dose triamcinolone acetonide injection 40 mg Given 09/08/2019 9:08 AM CDT 40 mg (KENALOG-40) 40 mg, intra-articular, One-Time Injection, Starting on Fri09/08/19 at 0908, For 1 dose documented in this encounter Additional Health Concerns Assessment Noted Time PHQ-9 Depression Total Score: 2 03/08/2015 11:16 AM CS T documented as of this encounter Care Teams Cigar Brander Relationship Specialty Start Date End Date Elsewhere, Pcp PCP - General Internal Medicine 08/17/18 11/09/19 documented as of this encounter
--- OUTSIDE RECORDS SUMMARY | 2021-12-17 09:47 | XMS_ITS | Encounter Summary ---
:1940 Author Organization [facility] Address [address] [place] [address] Care Team Providers Name Role Phone Silver Givens M.D. Primary Care Provider Reason for Visit Reason Comments Pre-op Exam 01/25/20- L total Shoulder wi th Dr. Marv Dodson in Outpatient (Routine) - Closed Specialty Diagnoses / Procedures Referred By Contact Refer red To Contact Family Medicine Diagnoses Primary Osteoarthritis Shoulder Left Marv Dodson [facility] Marisela [address] [place] [address] [place] [address] Referral ID Status Reason Start Date Expiration Date Visits Requ ested Visits Authorized [id number] Closed 12/15/2019 12/14/2020 1 1 Encounter Details Date Type Department Care Team Description 01/18/2020 Office Visit Department of Silver Montelongo Preop erative Exam (Primary Dx); Rosalia Kiser M.D. Primary Osteoarthritis Shoulder Left; [facility], in [address] [place] [address] Osteopor osis Without Pathological Fracture; [place], [address]vd Deficiency Vitamin D; [facility] [place] Atherosclerotic Heart Diseas e Of [place] Coronary Artery Without Angina Pectoris; [address] [place] [address] [address] [phone] Hyperlipidemia; [place] [phone] Peripheral Vascular Disease (HCC); [phone] (Work) Stroke Cerebrovascular Accident Personal History; [phone] Hyperglycemia; (Fax) Gastroesophagea l Reflux Disease Without Esophagitis; Loss Hearing Bi lateral Social History Tobacco Use Types Packs/Day Years Used Date Smoking Tobacco: Former Smokeless Tobacco: Never Alcohol Use Standard Drinks/Week Comments No 0 (1 standard drink = 0.6 oz pure alcoho l) Sex Assigned at Date Recorded Not on file documented as of this encounter Last Filed Vital Signs Vital Sign Reading Time Taken Comments Blood Pressure 114/69 01/18/2020 10:55 AM CDT Pulse 62 01/18/2020 10:55 AM CDT Temperature 36.6 ??C (97.9 ??F) 01/18/2020 10:55 AM CDT Respiratory Rate 16 01/18/2020 10:55 AM CDT Oxygen Saturation 94% 01/18/2020 10:55 AM CDT Inhaled Oxygen Concentration - - Weight 67.2 kg (148 lb 2.4 oz) 01/18/2020 10:55 AM CDT Height 167 cm (5' 5.75) 01/18/2020 10:55 AM CDT Body Mass Index 24.1 01/18/2020 10:55 AM CDT documented in this encounter H&P Notes Silver Givens M.D., Ph.D. - 01/18/2020 11:00 AM CDT SUBJECTIVE CHIEF COMPLAINT / REASON FOR VISIT Obey Vines is a 79 y.o. male who presents for evaluation of Pre-op Exam (01/25/20- L total Shoulder with Dr. Marv Dodson in ). HISTORY OF PRESENT ILLNESS Here for preop evaluation. Planned procedure includes left total shoulder replacement on 01/25/[address] [place] [address] Dodson for left shoulder arthritis. [...] Infarction Of Unspecified Site (HCC) ??? Stroke ([facility]) Past Surgical History: Procedure Laterality Date ??? [...] INTRAOCULAR LENS; Surgeon: Raymundo Muniz M.D.; Location: [facility] OR ??? EXTRACTION CATARACT WITH INSERTION INTRAOCULAR LENS Left 07/21/2017 Procedure: EXTRACTION CATARACT WITH INSERTION INTRAOCULAR LENS; Surgeon: Raymundo Muniz M.D.; Location: [facility] OR ??? MOHS SURGERY N/A 06/23/2006 [...] file Gets together: Not on file Attends roman catholic service: Not on file Active member of [...] Vitamin D #5 Atherosclerotic Heart Disease Of [place] Coronary Artery Without Angina Pectoris #6 Hyperlipidemia #7 Peripheral Vascular Disease (HCC) #8 Stroke Cerebrovascular Accident Personal History Continue current medications and treatments. Pros/cons/side effects/alternatives and complications reviewed in detail. #9 Hyperglycemia #10 Gastroesophageal Reflux Disease Without Esophagitis Stable. #11 Loss Hearing Bilateral Stable. documented in this encounter Plan of Treatment Not on filedocumented as of this encounter Procedures Procedure Name Priority Date/Time Associated Diagnosis Comme nts ECG Routine 01/18/2020 12:07 Atherosclerotic Heart Re sults for this PM CDT Disease Of [place] procedure are in Coronary Artery Without the results Angina Pectoris section. CBC WITH Routine 01/18/2020 11:28 Atherosclerotic Heart Re sults for this DIFFERENTIAL, B AM CDT Disease Of [place] procedu re are in Coronary Artery Without the results Angina Pectoris section. BASIC METABOLIC Routine 01/18/2020 11:28 Atherosclerotic Heart Results for this PANEL, S/P AM CDT Disease Of [place] procedure are in Coronary Artery Without the results Angina Pectoris section. documented in this encounter Results ECG 12 Lead (01/18/2020 12:07 PM CDT) P athologist Signature Ventricular Rate 63 BPM MUSE ECG/Min UT Interval 182 ms MUSE QRSD Interval 86 ms MUSE QT Interval 428 ms MUSE QTC Interval 437 ms MUSE P [place] 51 degrees MUSE R [place] 1 degrees MUSE T Wave [employer] [place] 32 degrees MUSE Specimen Anatomical Collection Method Collection Time Receive d Time (Source) Location / / Volume Laterality 01/18/2020 12:07 01/18/2020 PM CDT 12:19 PM CDT Impressions MUSE - 01/18/2020 12:19 PM CDT Sinus rhythm Premature ventricular complexes Intermittent Right bundle branch block with secondary ST-T abnormalities When compared with ECG of 14-AUG-2018 22 :01, Significant changes have occurred Reviewed by DARRELL Yu Narrative This result has an attachment that is no t available. Procedure Note Tj Ontiveros M.D. - 01/18/2020Formatti ng of this note might be different from the original. IMPRESSION: Sinus rhythm Premature ventricular complexes Intermittent Right bundle branch block with secondary ST-T abnormalities When compared with ECG of 14-AUG-2018 22 :01, Significant changes have occurred Reviewed by DARRELL Yu Silver Givens M.D. ECG ORDERABLES Performing Organization Address City/State/ZIP Code Phon e Number MUSE MUSE NA Basic Metabolic Panel (01/18/2020 11:28 AM CDT) athologist Signature Potassium, P 4.5 3.6 - 5.2 01/18/2020 [facility] mmol/L 11:49 AM CDT Sodium, P 139 135 - 145 01/18/2020 [facility] mmol/L 11:49 AM CDT Chloride, P 102 98 - 107 01/18/2020 [facility] mmol/L 11:49 AM CDT Bicarbonate, P 25 22 - 29 01/18/2020 [facility] mmol/L 11:49 AM CDT Anion Gap, P 12 7 - 15 01/18/2020 [facility] 11:49 AM CDT BUN (Blood Urea 14 8 - 24 01/18/2020 [facility] Nitrogen), P mg/dL 11:49 AM CDT Creatinine, P 1.12 0.74 - 1.35 01/18/2020 [facility] mg/dL 11:49 AM CDT eGFR-Black/Afri 72 >=60 01/18/2020 [facility] can [place] mL/min/BSA 11:49 AM CDT Comment: ----ADDITIONAL INFORMATION---- Estimated GFR calculated using the 2009 CKD_EPI creatinine equation. eGFR Non-Black/ 63 >=60 mL/min/BSA 01/18/2020 11:49 AM CDT [facility] Comment: ----ADDITIONAL INFORMATION---- Estimated GFR calculated using the 2009 CKD_EPI creatinine equation. Calcium, Total, P 9.7 8.8 - 10.2 mg/dL 01/18/2020 11:4 9 AM CDT [facility] Glucose, P 109 70 - 140 mg/dL 01/18/2020 11:49 AM CDT [facility] Specimen Anatomical Collection Method Collection Time Receive d Time (Source) Location / / Volume Laterality Blood (Blood, 01/18/2020 11:28 01/18/2020 Venous) AM CDT 11:30 AM CDT Silver Givens M.D. LAB BLOOD ADD-ON Performing Organization Address City/State/[facility] Code Phon e Number [address] [address] [place] [address] System in [address] CBC with Differential, Blood (01/18/2020 11:28 AM CDT) P athologist Signature Hemoglobin 15.8 13.2 - 01/18/2020 [facility] 16.6 g/dL 11:34 AM CDT Hematocrit 46.4 38.3 - 01/18/2020 [facility] 48.6 % 11:34 AM CDT Erythrocytes 5.09 4.35 - 01/18/2020 [facility] 5.65 11:34 AM CDT x10(12)/L MCV 91.2 78.2 - 01/18/2020 [facility] 97.9 fL 11:34 AM CDT RBC Distrib Width 14.2 11.8 - 01/18/2020 [facility] 14.5 % 11:34 AM CDT Platelet Count 215 135 - 317 01/18/2020 [facility] x10(9)/L 11:34 AM CDT Leukocytes 8.2 3.4 - 9.6 01/18/2020 [facility] x10(9)/L 11:34 AM CDT Neutrophils 6.08 1.56 - 01/18/2020 [facility] 6.45 11:34 AM CDT x10(9)/L Lymphocytes 1.11 0.95 - 01/18/2020 [facility] 3.07 11:34 AM CDT x10(9)/L Monocytes 0.55 0.26 - 01/18/2020 [facility] 0.81 11:34 AM CDT x10(9)/L Eosinophils 0.45 0.03 - 01/18/2020 [facility] 0.48 11:34 AM CDT x10(9)/L Basophils 0.03 0.01 - 01/18/2020 [facility] 0.08 11:34 AM CDT x10(9)/L Specimen Anatomical Collection Method Collection Time Receive d Time (Source) Location / / Volume Laterality Blood (Blood, 01/18/2020 11:28 01/18/2020 Venous) AM CDT 11:30 AM CDT Silver Givens M.D. LAB BLOOD ADD-ON Performing Organization Address City/State/ZIP Code Phon e Number [address] [address] [place] [address] [address] documented in this encounter Visit Diagnoses Diagnosis Preoperative Exam - Primary Primary Osteoarthritis Shoulder Left Osteoporosis Without Pathological Fractu re Deficiency Vitamin D Atherosclerotic Heart Disease Of [place] Coronary Artery Without Angina Pectoris Hyperlipidemia Peripheral Vascular Disease (HCC) Stroke Cerebrovascular Accident Personal History Hyperglycemia Gastroesophageal Reflux Disease Without Esophagitis Loss Hearing Bilateral documented in this encounter Additional Health Concerns Assessment Noted Time PHQ-9 Depression Total Score: 2 03/08/2015 11:16 AM CS T documented as of this encounter Care Teams Charter Coach Driver Relationship Specialty Start Date End Date Silver Givens M.D. PCP - General Family Medicine 11/10/19 12/09/[address] [place] [phone] documented as of this encounter
--- OUTSIDE RECORDS SUMMARY | 2021-12-17 09:47 | XMS_ITS | Encounter Summary ---
:1940 Author Organization [facility] Address [address] [place] [address] Care Team Providers Name Role Phone Unavailable Primary Care Provider Unavailable Encounter Details Date Type Department Care Team Description 08/15/2018 - Hospital Encounter [facility] Melanie Calderon M.B., B.Ch. [address] [place] [phone] Non-ST Elevation 08/16/2018 [facility], Tom Vines M.D., Ph.D. [address] [place] [phone] [facility] Infarction (HCC) [facility], (Primary Dx) Fifth Floor [address] [place] [phone] Social History Tobacco Use Types Packs/Day Years Used Date Smoking Tobacco: Former Smokeless Tobacco: Never Alcohol Use Standard Drinks/Week Comments No 0 (1 standard drink = 0.6 oz pure alcoho l) Sex Assigned at Date Recorded Not on file documented as of this encounter Last Filed Vital Signs Vital Sign Reading Time Taken Comments Blood Pressure 113/81 08/16/2018 10:30 AM CDT Pulse 63 08/15/2018 7:45 PM CDT Temperature 36.7 ??C (98.1 ??F) 08/16/2018 10:30 AM CDT Respiratory Rate 15 08/16/2018 12:00 AM CDT Oxygen Saturation 93% 08/16/2018 10:30 AM CDT Inhaled Oxygen Concentration - - Weight 64.1 kg (141 lb 5 oz) 08/16/2018 8:00 AM CDT Height 167 cm (5' 5.75) 08/15/2018 1:15 AM CDT Body Mass Index 22.98 08/15/2018 1:15 AM CDT documented in this encounter Discharge Summaries Coy Meier M.D. - 08/16/2018 6:20 AM CDT DISCHARGE SUMMARY BRIEF OVERVIEW Discharge Provider: Tom Johnson M.D. No primary care provider on file. Primary Care Provider Phone Number: None Primary Care Provider Fax Number: None Other Providers: None Admission Date: 08/15/2018 Discharge Date: 08/16/2018 PRINCIPAL DIAGNOSIS Non-ST Elevation Myocardial Infarction (HCC) SECONDARY DIAGNOSES Principal Problem: Non-ST Elevation Myocardial Infarction (HCC) Resolved Problems: * No resolved hospital problems. * Operative Procedures: Scheduled (Ольга), Completed (Comp) or Canceled (Can) Case IDs Date Procedure Surgeon Location Status [id number] 08/15/18 Coronary Angiography Jacques Barraza M.D. RST ROMB CCL Comp DISCHARGE DISPOSITION Home or Self Care [1] ACTIVE ISSUES REQUIRING FOLLOW UP 1) Continue aspirin 81 mg for life 2) Continue clopidogrel (Plavix) 75 mg for 1 year 3) Follow up MRI results (rotator cuff tear) 4) if blood pressure and heart rate will tolerate, begin lisinopril or other LOUISE-I and uptitrate metoprolol OUTPATIENT FOLLOW UP No future appointments. Follow up with your primary care doctor this week. TEST RESULTS PENDING AT DISCHARGE DETAILS OF HOSPITAL STAY REASON FOR ADMISSION Non-ST Elevation Myocardial Infarction (HCC) HOSPITAL COURSE 78-year-old male with a history of coronary disease status post myocardial infarction and stent placement (mid-RCA in 2011), hyperlipidemia, and ischemic stroke status post carotid endarterectomy (remote past) who presented to his local ED for evaluation of generalized weakness, fatigue, nausea over the past few days. He had chest discomfort which resolved with sublingual nitroglycerin. He had a troponin of 222 on arrival which nancy to 300, and was loaded with aspirin and Plavix and started on heparin drip and transferred to [facility] for further management of NSTEMI. He underwent cardiac catheterizationon August 15 with a stent placed in the proximal LAD. He tolerated the procedure well. He was discharged to home in stable condition on 08/16/2018. CONSULTS ORDERED DURING THIS ADMISSION IP CONSULT TO CARE MANAGEMENT Procedures Performed: cardiac catheterization Pertinent Diagnostic Results: refer above CONDITION AT DISCHARGE stable Discharge instructions were provided to the patient and caregiver(s). Physical exam on date of discharge: HEENT: NCAT, MMM CV: RRR, S1/S2, no m/r/g Lungs: CTAB Ext: no peripheral edema Skin: no rash documented in this encounter Medications at Time of Discharge Medication Sig Dispensed Refills Start Date End Date atorvastatin (for_LIPITOR) Take 80 mg by mouth 0 01/27/2017 80 mg tablet daily. metoprolol succinate Take 0.5 tablets 15 tablet 0 9 (TOPROL-XL) 25 mg 24 hr (12.5 mg total) by tablet mouth daily. ZETIA 10 mg tablet Take 10 mg by mouth 0 01/09/20 [address] tablet Take 1 tablet (81 30 tablet 11 08/1608/16/2019 mg total) by mouth daily. clopidogrel (PLAVIX) 75 mg Take 1 tablet (75 30 tablet 11 08/16/2019 tablet mg total) by mouth daily. pantoprazole (PROTONIX) 40 Take 1 tablet (40 30 tablet 0 09/15/2018 mg EC tablet mg total) by mouth every morning before breakfast. CALCIUM CARB/VIT Take 1 tablet by 0 01/09/2010 D3/MINERALS mouth daily. (CALCIUM-VITAMIN D ORAL) metFORMIN (GLUCOPHAGE) 500 Take 1-2 tablets by 0 12/03/2013 2020 mg tablet mouth 2 (two) times a day. nitroglycerin Place 1 tablet 0 06/25/2016 022 (for_NITROSTAT) 0.4 mg SL under the tongue tablet every 5 (five) minutes as needed for chest pain. documented as of this encounter Progress Notes Tom Johnson M.D., Ph.D. - 08/16/2018 10:45 AM CDT SUBJECTIVE This is a supervisory note for Dr. Coy Meier. HISTORY OF PRESENT ILLNESS Mr. Vines had an excellent night. There has been no further chest pain or shortness of breath. He is looking forward to going home today. OBJECTIVE PHYSICAL EXAMINATION General: The patient was alert, oriented, sitting comfortably. Vitals: Blood pressure 113/81, heart rate 58, respiratory rate 15. Pulmonary: Clear to auscultation. Cardiac: S1, S2. Regular rate and rhythm. ASSESSMENT / PLAN I have seen and examined the patient and agree with the history, physical exam, and recommendations by Dr. Meier. #1 Iyj-GR-[id number] myocardial infarction Mr. Vines will continue with aspirin for life, as well as clopidogrel for a minimum of 1 full year. His critical lesion in the proximal LAD was treated with the placement of a drug-eluting stent, and anexcellent result was obtained. He will follow up with his primary physician for ongoing risk factor modification. #2 Memory loss We once again discussed the issues this morning. He will follow up with his primary physician for initiation of further investigation, and it is likely that he will also need a neurology evaluation dueto his known cerebrovascular disease. The patient and his family are in agreement with the plan. CT CT Job ID: [id number] documented in this encounter H&P Notes Tom Johnson M.D., Ph.D. - 08/15/2018 11:01 AM CDT SUBJECTIVE This is also a supervisory note for Dr. Tj Monk and Dr. Darvin Corral. CHIEF COMPLAINT/REASON FOR VISIT Chest pain, nausea, and weakness. HISTORY OF PRESENT ILLNESS Mr. Vines is a 78-year-old gentleman with a prior STEMI with stent placement in his right coronary artery in 2011. He also has cerebrovascular disease with TIAs and a carotid endarterectomy in 1999. More recently, he has been having issues with his memory. He presented with chest pain that resolved with sublingual nitroglycerin, but had been having several days of weakness and nausea. In the emergencyroom, he was found to have an elevated troponin and received aspirin, clopidogrel, and intravenous heparin. He was taken to the veterinarian laboratory animal care this morning, after informed consent was obtained, and underwentPCI of a critical lesion in the proximal LAD. He is currently resting comfortably and has no further complaints. OBJECTIVE PHYSICAL EXAMINATION General: The patient was alert, oriented, lying comfortably. Vitals: Blood pressure 137/70, heart rate 62, respiratory rate 18. Pulmonary: Clear to auscultation. Cardiac: S1, S2. Regular rate and rhythm. Abdomen: Soft, bowel sounds are present. Extremities : Peripheral pulses are present. There was no pedal edema. Right radial access site was healthy. ASSESSMENT / PLAN I have seen and examined the patient and agree with the history, physical, and recommendations by Dr. Monk and Dr. Corral. #1 [id number] myocardial infarction Mr. Vines was preloaded with aspirin as well as clopidogrel, and underwent a diagnostic coronary angiogram. My review of his angiographic images indicated a widely patent RCA stent, but he had a critical lesion in the proximal LAD. After discussion with Dr. Jacques Barraza, we elected to place a drug-eluting stent. An excellent result was obtained. He will continue on aspirin as well as clopidogrel for a minimum of 1 full year without any interruption. He will then follow up with his primary physician for ongoing risk factor modification. He is currently also on a beta julian as well as a statin. #2 Memory loss I reviewed this with the patient and his . These appear to be mild and gradually progressive. I recommended that the patient address these with his primary physician, as these will require workup and management as an outpatient. I reassured them that these were unlikely to have been connected to his current cardiac issues. He does have known cerebrovascular disease and may benefit from a Neurology evaluation after he has seen his primary physician. They are both in agreement with the plan. CT CT Job ID: [id number] Reji Espitia M.D. - 08/15/2018 8:47 AM CDT INTERVAL HISTORY AND PHYSICAL PRE-PROCEDURE UPDATE H&P reviewed. The patient was examined and there are no significant changes to the H&P. SEDATION ASSESSMENT PRESEDATION ASSESSMENT Consent Consents Obtained: verbal and written The benefits, risks and alternatives to the procedure and the potential need for sedation or anesthesia as well as the names, roles, and responsibilities of healthcare team members performing significant interventional tasks were discussed with the patient and/or decision maker: yes Indications / Reason for Visit Procedure / Reason for Visit: Coronary angiogram with possible intervention Presedation Assessment The following portions of the patient's history were reviewed and updated as appropriate: allergies,current medications, family history, medical history, social history and problem list: Yes Review of Symptoms ROS documented within 24 hours and unchanged Physical Exam Mallampati: II - soft palate, uvula, fauces visible Heart: exam documented within 24 hours and unchanged Lungs: exam documented within 24 hours and unchanged Assessment Plan ASA Physical Status: class 2 - patient with mild systemic disease Sedation Plan: moderate sedation Patient seen, evaluated, and approved for sedation: yes Joel Espitia M.D. Source Note - Tj Monk M.D. - 08/15/2018 4:46 AM CDT CARDIOLOGY INPATIENT ADMISSION NOTE This is a supervisory note for Dr. Corral, PGY1. I personally saw and evaluated Mr. Obey Vines, and Irina with the findings and plan as documented in their H&P except as noted below. CHIEF COMPLAINT/REASON FOR VISIT Chest pain and weakness HISTORY OF PRESENT ILLNESS/PAST CARDIAC HISTORY Mr. Vines is a 78 y.o. male with a PMH of CAD s/p STEMI s/p thrombectomy and PCI to RCA, TIA s/p leftCEA 2000, hyperlipidemia, PMR, GERD, hyperlipidemia, former nicotine dependence who presented for chest pain and weakness. Briefly, Mr. Vines experienced chest pain on 08/13 that resolved with sublingual NTG but has also beenhaving few days of weakness and nausea. also voices concerns for progressive memory issues though this may be over longer course of time. He denies dyspnea, presyncope, or focal neurologic complaints. In the ED in [place], he was noted to have stable vitals with mild hypertension 144/94. Initialtroponin noted to be 222. ECG noted NSR with PVC but no other abnormalities. Other notable labs include mild neutrophilia, normal electrolytes, Cr at baseline 1.0, elevated total bilirubin 1.7, ALP mildly elevated to 173, AST mildly elevated to 54, CRP 0.9, TSH 1.9. UA shows pyuria and hematuria. CXR unremarkable on my review. He was loaded with aspirin 325, clopidogrel 300, and started on heparin gtt prior to transfer to [facility]. Upon arrival, he is hemodynamically stable and chest pain free. 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 He also has history of TIA in 1999 for which he underwent left CEA. CARDIAC HISTORY Angiogram 12/19/2011: Mid RCA 99%, 10-30% disease elsewhere. TTE 12/19/2011: LVEF 62%, RWMA at inferior base, normal RV, AV sclerosis. ECG 08/15/18: NSR, PVCs REVIEW OF SYSTEMS Otherwise negative except as per HPI. PHYSICAL EXAMINATION VITAL SIGNS: Temperature: [36.2 ??C-36.7 ??C] 36.7 ??C Heart Rate: [55-81] 59 Resp Rate: [12-18] 16 Blood Pressure: (115-144)/(68-94) 115/68 SpO2: [92 %-96 %] 94 % Height: [167 cm] 167 cm Weight: [65.2 kg-66.1 kg] 65.2 kg BSA (Calculated - sq m): [1.74 sq meters] 1.74 sq meters BMI (Calculated): [23.4 kg/m??] 23.4 kg/m?? Pulse Rate: [40-80] 65 Body mass index is 23.38 kg/m??. See exam by Dr. Corral for further details. General: Alert, conversant, no acute distress Cardiac: Normal rate, regular rhythm. No murmurs, rubs, or gallops. Normal JVP. No lower extremity edema. Lungs: Breathing comfortably on room air. Extremities: Warm and well perfused. Neuro: No gross motor/sensory deficits appreciated. Psych: Alert and oriented, answered questions appropriately. DIAGNOSTICS Results from last 7 days Lab Units 08/14/18 2233 WBC x10(9)/L 8.6 HEMOGLOBIN g/dL 15.8 HEMATOCRIT % 46.1 PLATELETS AUTO x10(9)/L 218 Results from last 7 days Lab Units 08/14/18 2233 SODIUM P mmol/L 139 POTASSIUM P mmol/L 4.1 CREATININE P mg/dL 1.07 CREP2 EGFR P mL/min/BSA 67 BUN P mg/dL 15 CHLORIDE P mmol/L 98 Results from last 7 days Lab Units 08/14/18 2233 TRPS TROPONIN T ng/L 222* Lab Results Component Value Date CHOL 176 06/25/2016 TRIG 106 06/25/2016 HDL 62 06/25/2016 LDLCALC 93 06/25/2016 Results from last 7 days Lab Units 08/14/18 2233 ALBUMIN P g/dL 4.9 PROTEIN TOTAL P g/dL 8.0* AST P U/L 54* ALT P U/L 29 ALK PHOS P U/L 173* BILIRUBIN TOTAL P mg/dL 1.7* ASSESSMENT / PLAN Mr. Vines is a 78 y.o. male with a PMH of CAD s/p STEMI s/p thrombectomy and PCI to RCA, TIA s/p leftCEA 1999, hyperlipidemia, PMR, GERD, hyperlipidemia, former nicotine dependence who presented for chest pain and weakness. #1 NSTEMI #2 History STEMI 12/2011, s/p SHAHAB to RCA #3 Coronary artery disease #4 History TIA 1999, s/p left CEA #5 Hyperlipidemia #6 Former nicotine dependence #7 Possibly memory changes #8 Hyperbilirubinemia #9 Neutrophilia In the setting of acute chest pain, history of ischemic heart disease with risk factors, and significantly elevated troponin greater than 200 the likely etiology for symptoms of chest pain and weaknesswith nausea at this time is NSTEMI. He is on appropriate medical management with aspirin, clopidogrel, metoprolol, atorvastatin, and heparin. We will plan for a coronary angiogram during the day. Overnight we will monitor for recurrence of chest pain, hemodynamic instability, or arrhythmias that may require more urgent intervention. I suspect that the memory issues may be a separate entity and more chronic requiring evaluation at a later date. His hyperbilirubinemia is mild without right upper quadrant symptoms and we will assess for direct component. AST only mildly elevated with normal lipase andno fevers/chills so no further interventions at this time. Rest per Dr. Shayna Monk M.D. Internal Medicine, PGY3 Tj Monk M.D. - 08/15/2018 4:46 AM CDT CARDIOLOGY INPATIENT ADMISSION NOTE This is a supervisory note for Dr. Corral, PGY1. I personally saw and evaluated Mr. Obey Vines, and Nicolerosalie with the findings and plan as documented in their H&P except as noted below. CHIEF COMPLAINT/REASON FOR VISIT Chest pain and weakness HISTORY OF PRESENT ILLNESS/PAST CARDIAC HISTORY Mr. Vines is a 78 y.o. male with a PMH of CAD s/p STEMI s/p thrombectomy and PCI to RCA, TIA s/p leftCEA 2000, hyperlipidemia, PMR, GERD, hyperlipidemia, former nicotine dependence who presented for chest pain and weakness. Briefly, Mr. Vines experienced chest pain on 08/13 that resolved with sublingual NTG but has also beenhaving few days of weakness and nausea. also voices concerns for progressive memory issues though this may be over longer course of time. He denies dyspnea, presyncope, or focal neurologic complaints. In the ED in [place], he was noted to have stable vitals with mild hypertension 144/94. Initialtroponin noted to be 222. ECG noted NSR with PVC but no other abnormalities. Other notable labs include mild neutrophilia, normal electrolytes, Cr at baseline 1.0, elevated total bilirubin 1.7, ALP mildly elevated to 173, AST mildly elevated to 54, CRP 0.9, TSH 1.9. UA shows pyuria and hematuria. CXR unremarkable on my review. He was loaded with aspirin 325, clopidogrel 300, and started on heparin gtt prior to transfer to [facility]. Upon arrival, he is hemodynamically stable and chest pain free. 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 He also has history of TIA in 1999 for which he underwent left CEA. CARDIAC HISTORY Angiogram 12/19/2011: Mid RCA 99%, 10-30% disease elsewhere. TTE 12/19/2011: LVEF 62%, RWMA at inferior base, normal RV, AV sclerosis. ECG 08/15/18: NSR, PVCs REVIEW OF SYSTEMS Otherwise negative except as per HPI. PHYSICAL EXAMINATION VITAL SIGNS: Temperature: [36.2 ??C-36.7 ??C] 36.7 ??C Heart Rate: [55-81] 59 Resp Rate: [12-18] 16 Blood Pressure: (115-144)/(68-94) 115/68 SpO2: [92 %-96 %] 94 % Height: [167 cm] 167 cm Weight: [65.2 kg-66.1 kg] 65.2 kg BSA (Calculated - sq m): [1.74 sq meters] 1.74 sq meters BMI (Calculated): [23.4 kg/m??] 23.4 kg/m?? Pulse Rate: [40-80] 65 Body mass index is 23.38 kg/m??. See exam by Dr. Corral for further details. General: Alert, conversant, no acute distress Cardiac: Normal rate, regular rhythm. No murmurs, rubs, or gallops. Normal JVP. No lower extremity edema. Lungs: Breathing comfortably on room air. Extremities: Warm and well perfused. Neuro: No gross motor/sensory deficits appreciated. Psych: Alert and oriented, answered questions appropriately. DIAGNOSTICS Results from last 7 days Lab Units 08/14/18 2233 WBC x10(9)/L 8.6 HEMOGLOBIN g/dL 15.8 HEMATOCRIT % 46.1 PLATELETS AUTO x10(9)/L 218 Results from last 7 days Lab Units 08/14/18 2233 SODIUM P mmol/L 139 POTASSIUM P mmol/L 4.1 CREATININE P mg/dL 1.07 CREP2 EGFR P mL/min/BSA 67 BUN P mg/dL 15 CHLORIDE P mmol/L 98 Results from last 7 days Lab Units 08/14/18 2233 TRPS TROPONIN T ng/L 222* Lab Results Component Value Date CHOL 176 06/25/2016 TRIG 106 06/25/2016 HDL 62 06/25/2016 LDLCALC 93 06/25/2016 Results from last 7 days Lab Units 08/14/18 2233 ALBUMIN P g/dL 4.9 PROTEIN TOTAL P g/dL 8.0* AST P U/L 54* ALT P U/L 29 ALK PHOS P U/L 173* BILIRUBIN TOTAL P mg/dL 1.7* ASSESSMENT / PLAN Mr. Vnies is a 78 y.o. male with a PMH of CAD s/p STEMI s/p thrombectomy and PCI to RCA, TIA s/p leftCEA 1999, hyperlipidemia, PMR, GERD, hyperlipidemia, former nicotine dependence who presented for chest pain and weakness. #1 NSTEMI #2 History STEMI 12/2011, s/p SHAHAB to RCA #3 Coronary artery disease #4 History TIA 1999, s/p left CEA #5 Hyperlipidemia #6 Former nicotine dependence #7 Possibly memory changes #8 Hyperbilirubinemia #9 Neutrophilia In the setting of acute chest pain, history of ischemic heart disease with risk factors, and significantly elevated troponin greater than 200 the likely etiology for symptoms of chest pain and weaknesswith nausea at this time is NSTEMI. He is on appropriate medical management with aspirin, clopidogrel, metoprolol, atorvastatin, and heparin. We will plan for a coronary angiogram during the day. Overnight we will monitor for recurrence of chest pain, hemodynamic instability, or arrhythmias that may require more urgent intervention. I suspect that the memory issues may be a separate entity and more chronic requiring evaluation at a later date. His hyperbilirubinemia is mild without right upper quadrant symptoms and we will assess for direct component. AST only mildly elevated with normal lipase andno fevers/chills so no further interventions at this time. Rest per Dr. Shayna Monk M.D. Internal Medicine, PGY3 [facility] Darvin Corral M.D. - 08/15/2018 4:02 AM CDT CVD ISCHEMIC ADMISSION NOTE CC: Chest discomfort Admitted for: NSTEMI HPI: Mr. Vines is a 78 y/o male with a history of CAD s/p MD and stent placement (mid-RCA, 2011), hyperlipidemia, and ischemic stroke s/p carotid endarterectomy (remote past) that presented to his localED with his for evaluation of general weakness, fatigue, and nausea over last few days. He was also noted to have memory issues and chest discomfort yesterday for which he took sublingual nitroglycerin with resolution and no return of symptoms. At the outside hospital ED, workup revealed a relatively normal CBC with slight neutrophilia, troponin 222, normal TSH, normal INR, CRP 0.9, total bili 1.7, alk-phos 173, AST 54, and lipase 31. Chest x-ray and ECG were reportedly unremarkable. The outside ED physician spoke with Dr. Calderon at [facility] for recommendations and was suggested to treat his NSTEMI with aspirin 324 mg oral, Plavix 300 mg oral, and start a heparin bolus and drip. The was then transferred to [facility] via ambulance for further management of his NSTEMI. On arrival to the floor, the patient was clinically and hemodynamically stable and in no acute distress. The is at bedside and assists to affirm and relay the history. Briefly, the patient states that he has not been feeling well over the last few days. He has loss of appetite, difficulty sleeping, and feeling nauseous with difficulty. In addition, He denies any shortness of breath or cough. Thewife also notes memory issues, but is not clear of the acuity. The patient denies any fever, chills, night sweats, headache, abdominal pain, constipation, diarrhea, dysuria, blood in urine/stools, or lower extremity swelling. - Medical history: Osteoporosis, vocal cord paralysis, PMR, depression, GERD, hyperlipidemia, ischemic stroke, CAD status post MD and stent placement - Surgical history: Carotid endarterectomy, joint replacement, vasectomy - Medications: Aspirin 81 mg daily, examine my 10 mg daily, metoprolol tartrate 25 mg daily, atorvastatin 80 mg daily, nitroglycerin as needed, omeprazole 20 mg daily - Family history: Cancer in paternal grandmother - Social history: Denies tobacco, alcohol, or illicit drug use; former smoker 50 pack year - Allergies: Oxycodone (confusion) Reviewed available medical history, medications, surgical history, family history, social history, and allergies. Review of systems: All systems reviewed and negative, except what was mentioned in HPI. OBJECTIVE Vitals: BP 124/68 Pulse (!) 58 Temp 36.2 ??C (Temporal) Resp 16 Wt 66.1 kg SpO2 95% BMI 23.42 kg/m?? Physical Exam: General: Awake, alert, well-developed, well-nourished, no acute distress, at bedside HENT: NCAT, PERRLA, EOMI, MMM, normal oropharynx Neck: Supple, no JVD, no carotid bruits Heart: RRR, normal S1 S2, no murmurs/rubs/gallops Lungs: CTAB, normal effort, no respiratory distress Abd: Soft, nontender, nondistended, bowel sounds present, no RUQ symptoms/guarding/peritoneal signs Ext: Warm and dry, skin intact, no clubbing/cyanosis/edema, distal pulses intact bilaterally Relevant imaging/diagnostics reviewed. ASSESSMENT/PLAN #1 NSTEMI #2 Coronary artery disease, MD s/p stent to mid-RCA (2011) #3 Ischemic stroke s/p carotid enterectomy #4 Hyperlipidemia Mr. Vines is a 78 y/o male with a history of CAD s/p MD and stent placement (mid- RCA, 2011) and ischemic stroke s/p carotid endarterectomy that presents with generalized weakness, fatigue, nausea, and chest discomfort relieved by nitroglycerin in the setting elevated troponins (>200), ACS symptoms, and normal ECG -- characteristic of NSTEMI. He has been loaded with aspirin and Plavix, started on the heparin drip, and will be kept NPO for catheterization later today. We will get a baseline ECG and serial troponins to assess for ongoing ischemia. We will continue to monitor for chest pain, arrhythmias, and hemodynamical instability in the setting of NSTEMI for more urgent intervention. With regards to his asymptomatic hyperbilirubinemia, mildly elevated AST, and normal lipase, we willget a CMP and total/direct bilirubin to further evaluate. Given his lack of symptoms, no immediate management. Lastly, it is unclear if his memory issues are acute or chronic issues and seems less likely to be contributing to his current presentation. This can likely be deferred to the outpatient setting for further evaluation. Plan - Continue moderate intensity heparin nomogram - NPO, Plavix + ASA load, for catheterization; continue DAPT post-cath - Baseline ECG + serial troponins - Continue ASA, Plavix, atorvastatin, ezetimibe, metoprolol - F/u CMP, T-bili, d-bili Fluids: NPO Electrolytes: Replete as needed Nutrition: NPO VTE ppx: Heparin gtt Code status: Full (discussed) Dispo: Pending further evaluation and management documented in this encounter Nursing Notes Kody Restrepo R.N. - 08/16/2018 10:30 AM CDT Shift Goals: Clinical Goals for the Shift: maintain stable post angio and d/c in timely manner Identify possible barriers to meeting goals/advancing plan of care: none End of Shift Summary: Education complete. Pt will d/c to [facility]. No further questions CARDIOVASCULAR - ADULT ??? Maintains optimal cardiac output and hemodynamic stability Adequate for Discharge ??? Achieve stable or improve cardiac rhythm Adequate for Discharge DISCHARGE PLANNING ??? Patient discharge needs identified Adequate for Discharge INFECTION - ADULT ??? Absence of infection during hospitalization Adequate for Discharge KNOWLEDGE DEFICIT ??? Patient/family/caregiver demonstrates understanding of disease process, treatment plan, medications, and discharge instructions Adequate for Discharge METABOLIC/FLUID AND ELECTROLYTES - ADULT ??? Electrolytes maintained within normal limits Adequate for Discharge ??? Hemodynamic stability and optimal renal function maintained Adequate for Discharge ??? Glucose maintained within prescribed range Adequate for Discharge PAIN - ADULT ??? PT VERBALIZES/DEMONSTRATES ADEQUATE COMFORT LEVEL OR BASELINE Adequate for Discharge RESPIRATORY - ADULT ??? Achieves optimal ventilation and oxygenation Adequate for Discharge SAFETY ADULT ??? Maintain a safe environment Adequate for Discharge SAFETY ADULT - RISK FOR FALL AND OR FALL INJURY ??? Patient remains free from fall/fall injury Adequate for Discharge SKIN/TISSUE INTEGRITY ??? Skin/Tissue integrity maintained or improved Adequate for Discharge ??? Oral and Nasal mucous membranes remain intact Adequate for Discharge Shade Blue R.N. - 08/16/2018 4:56 AM CDT Shift Goals: Clinical Goals for the Shift: Pt will be free from falls and will not have any complications at his angiogram site Identify possible barriers to meeting goals/advancing plan of care: Confusion End of Shift Summary: Pt has remained free from falls during this shift. His bed alarm was utilized,which prevented him from getting out of bed without nursing staff being aware. His angiogram site isstable with a small amount of ecchymosis proximal to the site. Shade Blue R.N. - 08/15/2018 6:20 AM CDT Shift Goals: Clinical Goals for Shift: Pt. Will remain hemodynamically stable and will have a restful night. Identify possible barriers to meeting goals/advancing plan of care: End of Shift Summary: Pt remained hemodynamically stable overnight. He remained in Sinus Bradycardiaovernight. documented in this encounter OR Notes Brief Op Note - Jung Alan M.D., M.P.H. - 08/15/2018 8:46 AM CDT POST-PERCUTANEOUS CORONARY INTERVENTION BRIEF NOTE PATIENT: Obey Vines : 1940 DATE OF SERVICE: 08/15/2018 PRIMARY CARE PROVIDER: No primary care provider on file. REFERRING PHYSICIAN: Saurabh Calderon M.B.* DATE OF ADMISSION: 08/15/2018 1:25 AM Obey Vines underwent successful PCI with SHAHAB to the left anterior descending artery today in aprocedure with Dr.Mandeep Barraza Implants: Implant Name Type Inv. Item Serial No. All Source Analyst Lot No. LRB No. Used Action STNT SYNERGY SHAHAB [id number] - [id number] Cardiac Stent STNT SYNERGY SHAHAB [id number] [employer] [id number] N/A 1 Implanted Antiplatelet regimen: Aspirin 81 mg for life Plavix 75 mg once daily for 12 months Prescriptions will be provided by the primary treating service at the time of discharge. Anticoagulation regimen: if the patient is on an anticoagulation regimen, please keep on hold until 4-6 h after sheath pull DVT prophylaxis is on hold for 24h after an intervention. Access site/size(s) and vascular closure method: 6F Right radial artery--TR band Intraprocedural ACT: Lab Results Component Value Date/Time ACT 307 (H) 08/15/2018 09:35 AM GP IIb/IIIa: no Labs: not needed ECG: not needed Periprocedural Events: none Beta-julian: can be started/restarted as long as it is not contraindicated (e.g. hypotension, bradycardia, previous intolerance) ACEI/ARB: can be started/restarted as long as it is not contraindicated (e.g. renal failure, hypotension, hemodynamic instability, previous intolerance) Statin: can be started/restarted as long as there are no contraindications (e.g. severe liver failure, prior intolerance, etc) Same day dismissal: no, patient can be discharged per the assessment of the primary team. Jung Castro M.D., M.P.H. Interventional and Structural Director Meetings [facility] 08/15/18 9:53 AM documented in this encounter Miscellaneous Notes Hospital Course - Coy Meier M.D. - 08/15/2018 10:53 AM CDT 78-year-old male with a history of coronary disease status post myocardial infarction and stent placement (mid-RCA in 2011), hyperlipidemia, and ischemic stroke status post carotid endarterectomy (remote past) who presented to his local ED for evaluation of generalized weakness, fatigue, nausea over the past few days. He had chest discomfort which resolved with sublingual nitroglycerin. He had a troponin of 222 on arrival which nancy to 300, and was loaded with aspirin and Plavix and started on heparin drip and transferred to [facility] for further management of NSTEMI. He underwent cardiac catheterizationon August 15 with a stent placed in the proximal LAD. He tolerated the procedure well. He was discharged to home in stable condition on 08/16/2018. documented in this encounter Plan of Treatment Not on filedocumented as of this encounter Procedures Procedure Name Priority Date/Time Associated Comments Diagnosis CBC WITH DIFFERENTIAL, B Routine 08/16/2018 7:44 Results for this AM CDT procedure are i n the results section. BASIC METABOLIC PANEL, Routine 08/16/2018 7:44 Re sults for this S/P AM CDT procedure are i n the results section. TROPONIN T, 6H, 5TH GEN, STAT 08/15/2018 12:37 Results for this P PM CDT procedure are i n the results section. HEPARIN LEVEL ANTI-XA Timed 08/15/2018 11:00 Re sults for this ASSAY, P AM CDT procedure are i n the results section. CARDIAC CATHETERIZATION Routine 08/15/2018 9:55 Non-ST Elevati on Results for this AM CDT Myocardial procedure are i n Infarction (HCC) the results section. CARDIAC CATHETERIZATION Routine 08/15/2018 9:55 Non-ST Elevati on Results for this AM CDT Myocardial procedure are i n Infarction (HCC) the results section. CARDIAC CATHETERIZATION Routine 08/15/2018 9:55 Non-ST Elevati on Results for this AM CDT Myocardial procedure are i n Infarction (HCC) the results section. ACT, POCT, B Routine 08/15/2018 9:35 Results for this AM CDT procedure are i n the results section. ACT, POCT, B Routine 08/15/2018 9:14 Results for this AM CDT procedure are i n the results section. ADULT OXYGEN THERAPY Routine 08/15/2018 8:50 AM CDT PULSE OXIMETRY, Routine 08/15/2018 8:50 CONTINUOUS AM CDT CAPNOGRAPHY Routine 08/15/2018 8:50 AM CDT TROPONIN T, 2H/6H, 5TH Timed 08/15/2018 6:00 Re sults for this GEN, P AM CDT procedure are i n the results section. BILIRUBIN DIRECT, S/P Timed 08/15/2018 6:00 Res ults for this AM CDT procedure are i n the results section. COMPREHENSIVE METABOLIC Timed 08/15/2018 6:00 R esults for this PANEL, S/P AM CDT procedure are i n the results section. TROPONIN T, BASELINE, STAT 08/15/2018 4:23 Res ults for this 5TH GEN, P AM CDT procedure are i n the results section. ACTIVATED PARTIAL STAT 08/15/2018 4:04 Results for this THROMBOPLASTIN TIME AM CDT procedur e are in (APTT), P the results section. documented in this encounter Results (ABNORMAL) Basic Metabolic Panel (08/16/2018 7:44 AM CDT) [facility] Signature Potassium, S 4.2 3.6 - 5.2 08/16/2018 [facility] mmol/L 8:51 AM CDT LABORATORIES - [facility] Sodium, S 141 135 - 145 08/16/2018 [facility] mmol/L 8:51 AM CDT LABORATORIES - [facility] Chloride, S 102 98 - 107 08/16/2018 [facility] mmol/L 8:51 AM CDT LABORATORIES - [facility] Bicarbonate, S 23 22 - 29 08/16/2018 [facility] mmol/L 8:51 AM CDT LABORATORIES - [facility] Anion Gap 16 (H) 7 - 15 08/16/2018 [facility] 8:51 AM CDT LABORATORIES - [facility] BUN (Blood 16 8 - 24 08/16/2018 [facility] Urea mg/dL 8:51 AM CDT LABORATORIES - Nitrogen), S [facility] Creatinine, S 1.18 0.74 - 08/16/2018 [facility] 1.35 mg/dL 8:51 AM CDT LABORATORIES [facility] eGFR-Non 59 (L) >=60 08/16/2018 [facility] Black/ mL/min/BSA 8:51 AM CDT LABORATORIES - [facility] Comment: ----ADDITIONAL INFORMATION---- Estimated GFR calculated using the 2009 CKD_EPI creatinine equation. eGFR-Black/ 68 >=60 mL/min/BSA 08/16/2018 8:51 [facility] CDT LABORATORIES [facility] Comment: ----ADDITIONAL INFORMATION---- Estimated GFR calculated using the 2009 CKD_EPI creatinine equation. Calcium, Total, S 9.5 8.8 - 10.2 mg/dL 08/16/2018 8:51 AM [facility] CDT LABORATORIES [facility] S Glucose, S 100 70 - 140 mg/dL 08/16/2018 8:51 [facility] Specimen Anatomical Collection Method Collection Time Receive d Time (Source) Location / / Volume Laterality Blood (Blood, 08/16/2018 7:44 AM 08/17/19 19 8:16 Venous) CDT AM CDT Tom Johnson M.D., Ph.D. LAB BLOOD ADD-ON Performing Organization Address City/State/ZIP Code Phon e Number [facility]ATORIES - [address] [place], [place] [address] [facility] CBC with Differential, Blood (08/16/2018 7:44 AM CDT) [facility] Method Time Signature Hemoglobin 15.2 13.2 - 08/16/2018 [facility] 16.6 g/dL 8:21 AM CDT LABORATORIES - [facility] Hematocrit 44.7 38.3 - 08/16/2018 [facility] 48.6 % 8:21 AM CDT LABORATORIES - [facility] Erythrocytes 4.99 4.35 - 08/16/2018 [facility] 5.65 8:21 AM CDT LABORATORIES - x10(12)/L [facility] MCV 89.6 78.2 - 08/16/2018 [facility] 97.9 fL 8:21 AM CDT LABORATORIES - [facility] RBC Distrib Width 14.1 11.8 - 08/16/2018 [facility] 14.5 % 8:21 AM CDT LABORATORIES - [facility] Platelet Count 231 135 - 317 08/16/2018 [facility] x10(9)/L 8:21 AM CDT LABORATORIES - [facility] Leukocytes 8.1 3.4 - 9.6 08/16/2018 [facility] x10(9)/L 8:21 AM CDT LABORATORIES - [facility] Neutrophils 5.20 1.56 - 08/16/2018 [facility] 6.45 8:21 AM CDT LABORATORIES - x10(9)/L [facility] Lymphocytes 2.03 0.95 - 08/16/2018 [facility] 3.07 8:21 AM CDT LABORATORIES - x10(9)/L [facility] Monocytes 0.60 0.26 - 08/16/2018 [facility] 0.81 8:21 AM CDT LABORATORIES - x10(9)/L [facility] Eosinophils 0.20 0.03 - 08/16/2018 [facility] 0.48 8:21 AM CDT LABORATORIES - x10(9)/L [facility] Basophils 0.04 0.01 - 08/16/2018 [facility] 0.08 8:21 AM CDT LABORATORIES - x10(9)/L [facility] Specimen Anatomical Collection Method Collection Time Receive d Time (Source) Location / / Volume Laterality Blood (Blood, 08/16/2018 7:44 AM 08/17/19 19 8:16 Venous) CDT AM CDT Tom S Johnson M.D., Ph.D. LAB BLOOD ADD-ON Performing Organization Address City/[facility] Phon e Number [facility] LABORATORIES - [address] [phone] [facility] (ABNORMAL) Troponin T, 6H, 5th Gen (08/15/2018 12:37 PM CDT) Patholo gist Method Time Signature Troponin T, 6 433 (H) <=15 ng/L 08/15/2018 [facility] hr, 5th gen 1:09 PM CDT LABORATORIES - [facility] Comment: Consider acute myocardial injur y 6H Delta 127 ng/L 08/15/2018 1:09 PM CDT [facility] IN LABORATORIES - [facility] 6H Delta Interp Changing 08/15/2018 1:09 PM CDT [facility] Comment: Evaluate for acute myocardial i njury Specimen Anatomical Collection Method Collection Time Receive d Time (Source) Location / / Volume Laterality Blood 08/15/2018 12:37 08/15/2018 PM CDT 12:43 PM CDT Darvin Corral M.D. LAB BLOOD TROPONIN Performing Organization Address [facility] Phon e Number [facility] LABORATORIES - [address] [phone] [facility] Heparin Anti-Xa Assay (08/15/2018 11:00 AM CDT) P athologist Signature Heparin 1.62 IU/mL 08/15/2018 [facility] Anti-Xa, P 12:53 PM CDT [facility] Comment: UFH therapeutic range: ?? 0.30-0.70 IU/mL LMWH therapeutic range: 0.50-1.00 IU/mL 0.50-1.00 IU/mL for twice daily dosing ? ? 1.00-2.00 IU/mL for once daily dosing (sample obtained 4-6 hours following sub cutaneous injection) LMWH prophylactic range:0.10-0.30 IU/mL ----ADDITIONAL INFORMATION---- Heparin Anti-Xa is used to measure hepar in concentrations in patients receiving low molecular weig ht heparin (LMWH) or unfractionated heparin (UFH). Specimen Anatomical Collection Method Collection Time Receive d Time (Source) Location / / Volume Laterality Blood (Blood, 08/15/2018 11:00 08/15/2018 Venous) AM CDT 11:19 AM CDT Darvin Corral M.D. LAB BLOOD NON ADD-ON Performing Organization Address City/State/ZIP Code Phon e Number [facility] LABORATORIES - [address] [place], [place] [address] [facility] CORONARY ANGIOGRAPHY, STENT PLACEMENT, PERCUTANEOUS CORONARY ANGIOPLASTY (08/15/2018 9:55 AM CDT) Anatomical Region Laterality Modality X-Ray Angiography Specimen (Source) Anatomical Collection Method Collection Time Re ceived Time Location / / Volume Laterality Biopsy 08/15/2018 9:08 AM CDT Narrative 08/17/2018 11:19 AM CDT This result has an attachment that is no t available. See PDF For Result Procedure Note Jacques Barraza M.D. - 08/17/2018Formatt ing of this note might be different from the original. See PDF For Result Vaughn Rader M.D., Ph.D. CV CARDIAC CATH PROCEDURES (ABNORMAL) ACT (Activated Clotting Time), POCT (08/15/2018 9:35 AM CDT) P athologist Signature Activated 307 (H) 84 - 139 08/15/[address] Clotting Time, sec 9:41 AM CDT [facility] Specimen Anatomical Collection Method Collection Time Receive d Time (Source) Location / / Volume Laterality Blood 08/15/2018 9:35 AM 9 9:41 CDT AM CDT Unknown Provider LAB POCT ORDERABLES - DEVICE Performing Organization Address City/State/ZIP Code Phon e Number POC [facility] INPATIENT LABS [address] [facility] [place] [id number] (ABNORMAL) ACT (Activated Clotting Time), POCT (08/15/2018 9:14 AM CDT) P athologist Signature Activated 168 (H) 84 - 139 08/15/[address] Clotting Time, sec 9:18 AM CDT [facility] Specimen Anatomical Collection Method Collection Time Receive d Time (Source) Location / / Volume Laterality Blood 08/15/2018 9:14 AM 9 9:18 CDT AM CDT Unknown Provider LAB POCT ORDERABLES - DEVICE Performing Organization Address City/State/ZIP Code Phon e Number POC RST [facility] INPATIENT LABS [address] [facility] [address] Bilirubin, Direct (08/15/2018 6:00 AM CDT) P athologist Signature Bilirubin, 0.2 0.0 - 0.3 08/15/2018 [facility] Direct, S mg/dL 8:25 AM CDT LABORATORIES - [facility] Specimen Anatomical Collection Method Collection Time Receive d Time (Source) Location / / Volume Laterality Blood (Blood, 08/15/2018 6:00 AM 08/16/19 19 6:20 Venous) CDT AM CDT Vaughn Rader M.D., Ph.D. LAB BLOOD ADD-ON Performing Organization Address City/State/ZIP Code Phon e Number [facility] LABORATORIES - [address] [place], [place] [address] [facility] (ABNORMAL) Comprehensive Metabolic Panel (08/15/2018 6:00 AM CDT) Analysis Performed At Patho logist Time Signature Potassium, S 4.5 3.6 - 5.2 08/15/2018 [facility] mmol/L 8:25 AM CDT LABORATORIES - [facility] Sodium, S 144 135 - 145 08/15/2018 [facility] mmol/L 8:25 AM CDT LABORATORIES - [facility] Chloride, S 102 98 - 107 08/15/2018 [facility] mmol/L 8:25 AM CDT LABORATORIES - [facility] Bicarbonate, S 24 22 - 29 08/15/2018 [facility] mmol/L 8:25 AM CDT LABORATORIES - [facility] Anion Gap 18 (H) 7 - 15 08/15/2018 [facility] 8:25 AM CDT LABORATORIES - [facility] BUN (Blood 14 8 - 24 08/15/2018 [facility] Urea mg/dL 8:25 AM CDT LABORATORIES - Nitrogen), S [facility] Creatinine, S 1.14 0.74 - 08/15/2018 [facility] 1.35 mg/dL 8:25 AM CDT LABORATORIES - [facility] eGFR-Non 62 >=60 08/15/2018 [facility] Black/ mL/min/BSA 8:25 AM CDT LABORATORIES - [place] [facility] Comment: ----ADDITIONAL INFORMATION---- Estimated GFR calculated using the 2009 CKD_EPI creatinine equation. eGFR-Black/ 71 >=60 mL/min/BSA 08/15/2018 8:25 [facility] CDT LABORATORIES [facility] Comment: ----ADDITIONAL INFORMATION---- Estimated GFR calculated using the 2009 CKD_EPI creatinine equation. Calcium, Total, S 9.6 8.8 - 10.2 08/15/2018 8:25 [facility] mg/dL AM CDT LABORATORIES - [facility] Glucose, S 102 70 - 140 08/15/2018 8:25 [facility] mg/dL AM CDT LABORATORIES [facility] Protein, Total, S 6.4 6.3 - 7.9 08/15/2018 8:25 [facility] g/dL AM CDT LABORATORIES [facility] Albumin, S 4.3 3.5 - 5.0 08/15/2018 8:25 [facility] g/dL AM CDT [facility] Aspartate 62 (H) 8 - 48 U/L 08/15/2018 8:25 [facility] Aminotransferase (AST), AM CDT LABORA TORIES - S [facility] Alkaline Phosphatase, S 142 (H) 40 - 129 U/L 08/15/2018 8: 25 [facility] AM CDT LABORATORIES [facility] Alanine Aminotransferase 25 7 - 55 U/L 08/15/2018 8:2 5 [facility] (ALT), S CDT [facility] Bilirubin, Total, S 1.2 <=1.2 mg/dL 08/15/2018 8:25 [facility] CDT LABORATORIES [facility] Specimen Anatomical Collection Method Collection Time Receive d Time (Source) Location / / Volume Laterality Blood (Blood, 08/15/2018 6:00 AM 08/16/19 19 6:20 Venous) CDT AM CDT Vaughn Rader M.D., Ph.D. LAB BLOOD ADD-ON Performing Organization Address City/State/ZIP Code Phon e Number [facility] - [address] [place], [place] [address] [facility] (ABNORMAL) Troponin T, 2H/6H, 5th Gen (08/15/2018 6:00 AM CDT) [facility] Method Time Signature Troponin T, 2 366 (H) <=15 ng/L 08/15/2018 [facility] hr, 5th gen 6:38 AM CDT LABORATORIES - [facility] Comment: Consider acute myocardial injur y 2H Delta 60 ng/L 08/15/2018 6:38 AM CDT [facility] 2H Delta Interp Changing 08/15/2018 6:38 AM CDT [facility] Comment: Evaluate for acute myocardial i njury Troponin T, 6 hr, 5th CANCELED ng/L 08/15/2018 11: 23 AM [facility] gen CDT - [facility] Comment: Hemolyzed redraw requested Result canceled by the ancillary Specimen Anatomical Collection Method Collection Time Receive d Time (Source) Location / / Volume Laterality Blood (Blood, 08/15/2018 6:00 AM 08/16/19 6:07 Venous) CDT AM CDT Narrative [facility] - 08/15/2018 11:25 AM CDT Specimen Information: Specimen ID: [id number] Specimen Type: Blood Specimen Collection Start Date: 08/16/19 ??6:00 AM Specimen Received Date: 08/15/2018 ??6:0 7 AM Specimen ID: [id number] Specimen Type: Blood Specimen Collection Start Date: 08/16/19 11:00 AM Specimen Received Date: 08/15/2018 11:08 AM Vaughn Rader M.D., Ph.D. LAB BLOOD TROPONIN Performing Organization Address City/[facility] Phon e Number [facility] - [address] [place], [place] [address] [facility] (ABNORMAL) Troponin T, Baseline, 5th gen (08/15/2018 4:23 AM CDT) [facility] gist Method Time Signature Troponin T, 306 (H) <=15 ng/L 08/15/2018 [facility] Baseline, 5th 4:50 AM CDT LABORATORIES - [facility] Comment: Consider acute myocardial injur y Specimen Anatomical Collection Method Collection Time Receive d Time (Source) Location / / Volume Laterality Blood (Blood, 08/15/2018 4:23 AM 08/16/19 19 4:29 Venous) CDT AM CDT Vaughn Rader M.D., Ph.D. LAB BLOOD TROPONIN Performing Organization Address City/[facility] Code Phon e Number [facility] - [address] [place], [place] [address] [facility] APTT (Activated Partial Thromboplastin Time) (08/15/2018 4:04 AM CDT) athologist Signature Activated 35 25 - 37 08/15/2018 [facility] Partial sec 4:48 AM CDT LABORATORIES - Thrombopl [facility] Specimen Anatomical Collection Method Collection Time Receive d Time (Source) Location / / Volume Laterality Blood (Blood, 08/15/2018 4:04 AM 08/16/19 4:38 Venous) CDT AM CDT Vaughn Rader M.D., Ph.D. LAB BLOOD ADD-ON Performing Organization Address City/State/ZIP Code Phon e Number [facility] - [address] [place] [phone] [facility] documented in this encounter Visit Diagnoses Diagnosis Non-ST Elevation Myocardial Infarction ( HCC) - Primary Non-ST Elevation Myocardial Infarction ( HCC) documented in this encounter Admitting Diagnoses Diagnosis Non-ST Elevation Myocardial Infarction ( HCC) documented in this encounter Administered Medications Inactive Administered Medications - up to 3 most recent administrations Medication Order MAR Action Action Date Dose Rate Site aspirin DR tablet 81 mg Given 08/16/2018 8:15 AM CDT 81 mg 81 mg, oral, Daily, First dose on 08/15/18 at 0900, Aspirin DR tablet was interchanged for aspirin capsule Swallow whole. Do NOT crush, chew, or split tablet. Given 08/15/2018 8:18 AM CDT 81 mg atorvastatin tablet 80 mg (LIPITOR) Given 08/16/2018 8:15 AM CDT 80 mg 80 mg, oral, Every morning, First dose on 08/15/18 at 0900 Given 08/15/2018 8:18 AM CDT 80 mg clopidogrel tablet 75 mg (PLAVIX) Given 08/16/2018 8:15 AM CDT 75 mg 75 mg, oral, Daily, First dose on 08/15/18 at 0900 Given 08/15/2018 8:18 AM CDT 75 mg D5W infusion 10-250 mL/hr, intravenous, As needed, Medications Inco mpatible with 0.9% NaCL, Starting on 08/15/18 at 0234, Infuse at the same ra te as the piggyback until tubing clears or up to a volume of 20 mL pre and post infusion for medications incompatible with 0.9% NaCL. Use 100 mL bag then disca rd. ezetimibe tablet 10 mg (ZETIA) Given 08/16/2018 8:15 AM CDT 10 mg 10 mg, oral, Daily, First dose on 08/15/18 at 0900 Given 08/15/2018 8:18 AM CDT 10 mg heparin (porcine) 1,000 unit/mL Given 08/15/2018 4:39 AM CDT 3,9 00 Units injection 3,900 Units 3,900 Units (rounded from 3,912 Units = 60 Units/kg ? 65.2 kg Dosing weight), intravenous, Once, On 08/15/18 at 0400, For 1 dose, Initial Loading Dose, Intensity type: Moderate heparin (porcine) 100 Rate/Dose Verify 08/15/2018 7:00 AM 12 Units/ kg/hr 7.82 mL/hr Units/mL in D5W 250 mL CDT infusion 0-40 Units/kg/hr ? 65.2 kg Dosing weight (0-26.08 mL/hr), intravenous, Continuous, Starting on 08/15/18 at 0400, Premix ba,000 Units in 250 mL, Intensity type: Moderate, Start infusion at: 12 units/kg/hr, antiXa level: Less than 0.1: IV push loading dose 60 units/kg; Continue infusion; Increase IV rate 4 units/kg/hour; Repeat antiXa: 6 hours, antiXa level: 0.1-0.19: IV push loading dose 30 units/kg; Continue infusion; Increase IV rate 2 units/kg/hour; Repeat antiXa: 6 hours, antiXa level: 0.2-0.5: No loading dose; Continue infusion; No change in IV rate; Repeat antiXa: 1st level, recheck at 6 hours then 2nd check and beyond, Next a.m., antiXa level: 0.51-0.6: No loading dose; Continue infusion; Decrease IV rate 1 unit/kg/hour; Repeat antiXa: 6 hours after rate change, antiXa level: 0.61-0.9: No loading dose; Stop infusion for 1 hour; Decrease IV rate 2 units/kg/hour; Repeat antiXa: 6 hours after Heparin resumed, antiXa level: 0.91 or greater: No loading dose; Stop infusion for 2 hours; Decrease IV rate 4 units/kg/hour; Repeat antiXa: 6 hours after Heparin resumed New Bag 08/15/2018 4:42 AM CDT 12 Units/kg/hr 7.82 mL/hr metoprolol succinate 24 hr tablet 12.5 mg Given 08/16/2018 8:15 AM CDT 12.5 mg (TOPROL-XL) 12.5 mg, oral, Daily, First dose on 08/15/18 at 0900, Do NOT crush or chew. Given 08/15/2018 8:18 AM CDT 12.5 mg NaCl 0.9% infusion 10-250 mL/hr, intravenous, As needed, Be tween Consecutive Piggyback Medications, Starting on 08/15/18 at 0234, Infuse at the same ra te as the piggyback until tubing clears or up to a volume of 20 mL . Select for IV medication administration when no maintenance IV available or when IV medication s are not compatible with maintenance fluid. NaCl 0.9% infusion 10-250 mL/hr, intravenous, As needed, Post Medications (Hazardous/Low Fluid Volume), Starting on 08/15/18 at 0234 , Infuse at the same rate as the medication until tubing cleared of medication, then discard. NaCl 0.9% infusion New Bag 08/15/2018 9:02 AM CDT 20 mL/hr 20 mL/hr 20 mL/hr, intravenous, Once as needed, to keep vein open, Starting on 08/15/18 at 0850, For 1 dose, Intraprocedure (CV) nitroglycerin SL tablet 0.4 mg (NITROSTA T) 0.4 mg, sublingual, Every 5 min PRN, kannan st pain, Starting on 08/15/18 at 0409, May administer up to 3 doses per episode . Dissolve under the tongue. Do NOT crush, chew, split or swallow tablet. pantoprazole DR tablet 40 mg (PROTONIX) Given 08/16/2018 8:15 AM CDT 40 mg 40 mg, oral, Daily before breakfast, First dose on 08/15/18 at 0700, pantoprazole 40 mg oral daily was interchanged for omeprazole 20 or 40 mg oral daily Swallow whole. Do NOT crush, chew, or split tablet. Given 08/15/2018 6:52 AM CDT 40 mg documented in this encounter Active and Recently Administered Medications Times are shown in CDT. Scheduled Medication Order 08/14/2018 08/15/2018 08/16/[address] tablet 81 mg 0818 (Given - Pr ovider: Kody Restrepo RLaraN.)0846 (MAR Hold - Provider: Transfer Provider, Automatic - Reason: Patient not available)1048 (MAR Unhold - Provider: Transfer Provider, Automatic) 0815 (Given - Provider: Kody Restrepo R.N.) 81 mg, oral, Daily, First dose on Sat at 0900, Aspirin DR tablet was interchanged for aspirin capsule Swallow whole. Do NOT crush, chew, or split tablet. atorvastatin tablet 80 mg (LIPITOR) 0818 (Given - Provider: Kody Restrepo RLaraN.)0846 (MAR Hold - Provider: Transfer Provider, Automatic - Reason: Patient not available)1048 (MAR Unhold - Provider: Transfer Provider, Automatic) 0815 (Given - Provider: Kody Restrepo, R.N.) 80 mg, oral, Every morning, First dose on 08/15/18 at 0900 clopidogrel tablet 75 mg (PLAVIX) 0818 ( Given - Provider: Kody Restrepo RLaraN.)0846 (MAR Hold - Provider: Transfer Provider, Automatic - Reason: Patient not available)1048 (MAR Unhold - Provider: Transfer Provider, Automatic) 0815 (Given - Provider: Kody Restrepo, R.N.) 75 mg, oral, Daily, First dose on 08/15/18 at 0900 ezetimibe tablet 10 mg (ZETIA) 0818 (Giv en - Provider: Kody Restrepo, R.N.)0846 (MAR Hold - Provider: Transfer Provider, Automatic - Reason: Patient not available)1048 (MAR Unhold - Provider: Transfer Provider, Automatic) 0815 (Given - Provider: Kody Restrepo, R.N.) 10 mg, oral, Daily, First dose on 08/15/18 at 0900 heparin (porcine) 1,000 unit/mL injection 3,900 Units (COMPL ETED) 0439 (Given - Provider: Shade J Mirza, R.N.) 3,900 Units (rounded from 3,912 Units = 60 Units/kg ? 65.2 kg Dosing weight), intravenous, Once, On 08/15/18 at 0400, For 1 dose, Initial Loading Dose, Intensity type: Moderate metoprolol succinate 24 hr tablet 12.5 mg (TOPROL-XL) 0818 (Given - Provider: Kody Restrepo RLaraN.)0846 (MAR Hold - Provider: Transfer Provider, Automatic - Reason: Patient not available)1048 (MAR Unhold - Provider: Transfer Provider, Automatic) 0815 (Given - Provider: Kody Restrepo R.N.) 12.5 mg, oral, Daily, First dose on 08/15/18 at 0900, Do NOT crush or chew. pantoprazole DR tablet 40 mg (PROTONIX) 0652 (Given - Provider: Shade Blue R.N.)0846 (MAR Hold - Provider: Transfer Provider, Automatic - Reason: Patient not available)1048 (MAR Unhold - Provider: Transfer Provider, Automatic) 0815 (Given - Provider: Kody Restrepo , R.N.) 40 mg, oral, Daily before breakfast, Fir st dose on 08/15/18 at 0700, pantoprazole 40 mg oral daily was interchanged for omeprazole 20 or 40 mg oral daily Swallow whole. Do NOT crush, chew, or split tablet. Continuous Medication Order 08/14/2018 08/15/2018 08/16/2018 heparin (porcine) 100 Units/mL in D5W 250 mL infusion (CANCE LED) 0442 (New Bag - Provider: Shade Blue RSelvin)0700 (Rate/Dose Verify - Provider: Kody Restrepo RLaraNLara)0902 (Stopped - Provider: Angella SaldañaNLara) 0-40 Units/kg/hr ? 65.2 kg Dosing weight (0-26.08 mL/hr), intravenous, Continuous, Starting on 08/15/18 at 0400, Premix ba,000 Units in 250 mL, Intensity type: Moderate, Start infusion at: 12 u nits/kg/hr, antiXa level: Less than 0.1: IV push loading dose 60 units/kg; Continue infusion; Increase IV rate 4 units/kg/hour; Repeat antiXa: 6 hours, antiXa level: 0.1-0.19: IV push loading dose 30 un its/kg; Continue infusion; Increase IV r ate 2 units/kg/hour; Repeat antiXa: 6 hours, antiXa level: 0.2-0.5: No loading dose; Continue infusion; No change in IV rate; Repeat antiXa: 1st level, recheck at 6 hours then 2nd check and beyond, Next a.m., antiXa level: 0.51-0.6: No loading dose; Continue infusion; Decrease IV rate 1 unit/kg/hour; Repeat antiXa: 6 hours after rate change, antiXa level: 0.61-0 .9: No loading dose; Stop infusion for 1 hour; Decrease IV rate 2 units/kg/hour; Repeat antiXa: 6 hours after Heparin resumed, antiXa level: 0.91 or greater: No loading dose; Stop infusion for 2 hours; Decrease IV rate 4 units/kg/hour; Repeat antiXa: 6 hours aft er Heparin resumed PRN Medication Order 08/14/2018 08/15/2018 08/16/2018 aspirin chewable tablet (CANCELED) 0856 (Given - Provider: Herbie Brady R.N.) As needed, Starting on 08/15/18 at 0856, Intraprocedure (CV) D5W infusion 0846 (JUL Hold - Pro vider: Transfer Provider, Automatic - Reason: Patient not available)1048 (JUL Unhold - Provider: Transfer Provider, Automatic) 10-250 mL/hr, intravenous, As needed, Me dications Incompatible with 0.9% NaCL, Starting on 08/15/18 at 0234, Infuse at the same rate as the piggyback until tubing clears or up to a volume of 20 mL pr e and post infusion for medications inco mpatible with 0.9% NaCL. Use 100 mL bag then discard. fentaNYL injection 50 mcg (SUBLIMAZE) (CANCELED) 0856 (Given - Provider: Herbie Brady, R.N.)0906 (Given - Provider: Herbie Brady, R.N.)0940 (Given - Provider: Herbie Brady, R.N.) 50 mcg, intravenous, Every 2 min PRN, mo derate pain or score 4-6 of 10, severe pain or score 7-10 of 10, Starting on 08/15/18 at 0850, Intraprocedure (CV), Administer over 1 minute immediately prior to the procedure. May repeat every 2 min utes to a maximum of 200 mcg, until pain score of 3 or less, or until the patient meets the pain comfort goal. Do not give if respiratory rate is less than 8 breaths/minute heparin (porcine) 1,000 unit/mL injection (CANCELED) 0927 (Given - Provider: Herbie Brady R.N.) As needed, Starting on 08/15/18 at 0927, Intraprocedure (CV) iohexol 350 mg iodine/mL solution (OMNIPAQUE) (CANCELED) 0948 (Given - Provider: Reji Espitia M.D.) As needed, Starting on 08/15/18 at 0948, Intraprocedure (CV) lidocaine 10 mg/mL (1 %) injection (XYLOCAINE) (CANCELED) 0901 (Given - Provider: Reji Espitia M.D.) As needed, Starting on 08/15/18 at 0901, Intraprocedure (CV) midazolam (PF) injection 0.5 mg (VERSED) (COMPLETED) 0857 (Given - Provider: Herbie Brady R.N.) 0.5 mg, intravenous, Once as needed, sed ation, Starting on 08/15/18 at 0850, For 1 dose, Intraprocedure (CV) midazolam (PF) injection 0.5 mg (VERSED) (CANCELED) 09 (Given - Provider: Herbie Brady R.NLara) 0.5 mg, intravenous, Every 2 min PRN, se dation, RASS -1, Starting on 08/15/18 at 0850, Intraprocedure (CV), May repeat every 2 minutes for a maximum of 5 mg. Do not give if respiratory rate is less than 8 breaths/minute. NaCl 0.9% infusion 0846 (JUL Hold - Pro vider: Transfer Provider, Automatic - Reason: Patient not available)1048 (JUL Unhold - Provider: Transfer Provider, Automatic) 10-250 mL/hr, intravenous, As needed, Be tween Consecutive Piggyback Medications, Starting on 08/15/18 at 0234, Infuse at the same rate as the piggyback until tubing clears or up to a volume of 20 mL. Select for IV medication administration when no maintenance IV available or when IV medications are not compatible with maintenance fluid. NaCl 0.9% infusion 0846 ([facility] Hold - Pro vider: Transfer Provider, Automatic - Reason: Patient not available)1048 ([facility] Unhold - Provider: Transfer Provider, Automatic) 10-250 mL/hr, intravenous, As needed, Po st Medications (Hazardous/Low Fluid Volume), Starting on 08/15/18 at 0234, Infuse at the same rate as the medication until tubing cleared of medication, then discard. NaCl 0.9% infusion (COMPLETED) 0902 (New Bag - P rovider: Herbie Brady RLaraNLara) 20 mL/hr, intravenous, Once as needed, t o keep vein open, Starting on 08/15/18 at 0850, For 1 dose, Intraprocedure (CV) nitroglycerin in D5W 100 mcg/mL syringe (for intra-arterial use only) (CANCELED) 0946 (Given - Provider: Rodger Murrieta) As needed, Starting on 08/15/18 at 0946, Intraprocedure (CV) nitroglycerin SL tablet 0.4 mg (NITROSTAT) 0846 ([facility] Hold - Provider: Transfer Provider, Automatic - Reason: Patient not available)1048 ([facility] Unhold - Provider: Transfer Provider, Automatic) 0.4 mg, sublingual, Every 5 min PRN, kannan st pain, Starting on 08/15/18 at 0409, May administer up to 3 doses per episode. Dissolve under the tongue. Do NOT crush, chew, split or swallow tablet. verapamil injection (ISOPTIN) (CANCELED) 0910 (Given - Provider: Reji Espitia M.D.) As needed, Starting on 08/15/18 at 0910, Intraprocedure (CV) documented in this encounter Additional Health Concerns Assessment Noted Time PHQ-9 Depression Total Score: 2 03/08/2015 11:16 AM CS T documented as of this encounter
--- OUTSIDE RECORDS SUMMARY | 2021-12-17 09:47 | XMS_ITS | Encounter Summary ---
:1940 Author Organization [facility] Address [address] [place] [address] Care Team Providers Name Role Phone Elsewhere, Pcp Primary Care Provider Unavailable Reason for Visit Reason Comments Pain Outpatient (Routine) - Closed Specialty Diagnoses / Procedures Referred By Contact Refer red To Contact Orthopedic Surgery Diagnoses Tear Rotator Cuff Complete Non Trauma Left Laila Loco, [facility] CN.P [address] [place], [place] [address] Referral ID Status Reason Start Date Expiration Date Visits Requ ested Visits Authorized [id number] Closed 08/24/2018 08/24/2019 1 1 Encounter Details Date Type Department Care Team Description 08/27/2018 Comprehensive Visit Department of [place], Tear Ro tator Cuff Orthopedic Surgery Marisela Fair Complete Non Trauma in [address] Left [address] [address] [place], [place] [phone] (Work) [phone] Social History Tobacco Use Types Packs/Day Years Used Date Smoking Tobacco: Former Smokeless Tobacco: Never Alcohol Use Standard Drinks/Week Comments No 0 (1 standard drink = 0.6 oz pure alcoho l) Sex Assigned at Date Recorded Not on file documented as of this encounter Progress Notes Marv Duenas M.D. - 08/27/2018 2:00 PM CDT CHIEF COMPLAINT/REASON FOR VISIT Left shoulder pain. 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 He is having no pain. Good range of motion. He has developed shoulder pain on the left side in the last couple of years without event or injury. He is having more and more discomfort with it and ultimately was seen for this, and an MRI was obtained. Was found to have muscle atrophy and retraction of the supraspinatus with a full-thickness tear, degenerative changes seen in the glenohumeral joint that was mild, and partial-thickness tearing of the infraspinatus and subscapularis. Subsequently, he is here to discuss treatment options. 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 He is currently on Plavix for this andis a nonsurgical candidate. He is here to discuss his options of treatment. He does not really use any medications to treat this. Does activity modify. He is wondering if acupuncture would be an option, or other treatment modalities to try to help alleviate his symptoms. His pain is worse with reaching overhead, reaching outside the frame of his body, and with driving. OBJECTIVE PHYSICAL EXAMINATION The patient is alert and pleasant. No acute distress. Evaluation of his left shoulder reveals forward elevation passively 160. He is able to hold this up actively, but in the impingement range he does exhibit some pain. His external rotation is to 40 degrees today. His strength is limited both with empty can and external rotation 4/5. 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 We discussed treatment options for him since operative management is not an option. I think moving forward with conservative measures are appropriate including potential injection in the subacromial space. We discussed risks and benefits of this injection. He desires to proceed. For procedure, please see the procedural note for full details, but I injected 40 mg of Kenalog and 4 mL of 0.25% Marcaine plain in the subacromial space left shoulder without complication. The patient tolerated this injection well. Plan to see him back in the future as needed for his rotator cuff arthropathy. documented in this encounter Procedure Notes Marv Duenas M.D. 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 Risks discussed with: patient Procedural risks discussed, including (but not limited to) the following: allergic reaction, infection, reaction to medication, systemic steroid effects, possible continued pain and transient increasedpain Consent obtained: written Procedure purpose: diagnostic and therapeutic Indications: left shoulder pain Skin preparation: povidone-iodine Anesthesia method: none Procedure location: shoulder - Shoulder site: L subacromial bursa Site prep: patient was prepped and draped in usual sterile fashion Procedural approach: posterior Procedure performed: injection only Needle gauge: 22 G The following medications were administered at the target site(s): Local anesthetic: 4 mL bupivacaine PF 0.25 % (2.5 mg/mL) Corticosteroid: 40 mg triamcinolone acetonide 40 mg/mL Procedure completed successfully: yes Complications: no apparent complications Post-procedure instructions: avoid strenuous activity for 5 days Discharge instructions: dressing care and follow-up with ordering provider documented in this encounter Plan of Treatment Not on filedocumented as of this encounter Procedures Procedure Name Priority Date/Time Associated Diagnosis Comme nts OR ARTHCS ASP/INJ Routine 08/27/2018 2:00 PM Tear Rotator Cuff Results for this [facility] JT WO US CDT Complete Non Trauma procedur e are in Left the results section. documented in this encounter Results OR ARTHCS ASP/INJ [facility] JT WO US (08/27/2018 2:00 PM CDT) Narrative MMODAL - 08/27/2018 2:00 PM CDT Marv Duenas M.D. ? 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 Risks discussed with: patient Procedural risks discussed, including (b ut not limited to) the following: allergic reaction, infection, reaction t o medication, systemic steroid effects, possible continued pain and tra nsient increased pain Consent obtained: written Procedure purpose: diagnostic and therap eutic Indications: left shoulder pain Skin preparation: povidone-iodine Anesthesia method: none Procedure location: shoulder - Shoulder site: L subacromial bursa Site prep: patient was prepped and drape d in usual sterile fashion ?? Procedural approach: posterior Procedure performed: injection only Needle gauge: 22 G The following medications were administe red at the target site(s): ??Local anesthetic: 4 mL bupivacaine PF 0.25 % (2.5 mg/mL) ??Corticosteroid: 40 mg triamcinolone a cetonide 40 mg/mL Procedure completed successfully: yes Complications: no apparent complications ?Post-procedure instructions: avoid st renuous activity for 5 days ??Discharge instructions: dressing care and follow-up with ordering provider Marv Duenas M.D. PROCEDURE/MINOR SURGICAL ORD ERABLES Performing Organization Address City/State/ZIP Code Phon e Number MMODAL MMODAL NA documented in this encounter Visit Diagnoses Diagnosis Tear Rotator Cuff Complete Non Trauma Le ft documented in this encounter Administered Medications Inactive Administered Medications - up to 3 most recent administrations Medication Order MAR Action Action Date Dose Rate Site bupivacaine PF 0.25 % (2.5 mg/mL) Given 08/27/2018 1:57 PM CDT 4 mL injection 4 mL (MARCAINE) 4 mL, infiltration, One-Time Injection, Starting on Annemarie 08/27/18 at 1357, For 1 dose triamcinolone acetonide injection 40 mg Given 08/27/2018 1:57 PM CDT 40 mg (KENALOG-40) 40 mg, intra-articular, One-Time Injection, Starting on Annemarie 08/27/18 at 1357, For 1 dose documented in this encounter Additional Health Concerns Assessment Noted Time PHQ-9 Depression Total Score: 2 03/08/2015 11:16 AM CS T documented as of this encounter Care Teams Humanities Instructor Relationship Specialty Start Date End Date Elsewhere, Pcp PCP - General Internal Medicine 08/17/18 11/09/19 documented as of this encounter
--- OUTSIDE RECORDS SUMMARY | 2021-12-17 09:47 | XMS_ITS | Encounter Summary ---
:1940 Author Organization [facility] Address [address] [place] [address] Care Team Providers Name Role Phone Silver Givens M.D. Primary Care Provider Reason for Visit Outpatient (Routine) - Closed Specialty Diagnoses / Procedures Referred By Contact Refer red To Contact General Surgery Diagnoses Primary Osteoarthritis Shoulder Left Marv Dodson [facility] [address] [place] [address] Referral ID Status Reason Start Date Expiration Date Visits Requ ested Visits Authorized [id number] Closed 12/15/2019 12/14/2020 1 1 Encounter Details Date Type Department Care Team Description 01/18/2020 Telemedicine Department of General Rodger Dodson M.D. [address] [place] [address] Preanesthetic Medical Exam (Primary Dx); Surgery in [place] Lu Abby [facility] [address] [place] [address] Primary Osteoarthritis Shoulder Left [place] [address] [place] [address] Social History Tobacco Use Types Packs/Day Years Used Date Smoking Tobacco: Former Smokeless Tobacco: Never Alcohol Use Standard Drinks/Week Comments No 0 (1 standard drink = 0.6 oz pure alcoho l) Sex Assigned at Date Recorded Not on file documented as of this encounter Progress Notes Agnes Jha R.N. - 01/18/2020 2:15 PM CDT This patient was contacted for a SARI visit on 01/18/20 regarding surgery on 01/25/20. Surgery Nurse Filter Changer Skin Alert Assessment: Complete this section only if the patient is greater than or equal to 18 y/o BMI <19 or >40: No - BMI 24 Documented risk factors that indicate higher risk for pressure ulcer? No Do you have impaired sensation? No Is patient chair-bound or unable to reposition themselves? No Anesthesia Risk Assessment: Do you have an implanted cardiac device? No Do you have difficulties lying flat? No Comment: Do you have any samaritan or other objection to having a blood transfusion? No Teaching: Preoperative education was done with (x) patient and his spouse () parent . It was confirmed the patient/family member had received the following preoperative education sheets:Checklist For Surgical Patients (LT2798- [id number]),???Surgical Site Infections: Reducing Your Risk ([id number]), Speak Up: Antibiotics ([id number]), Acute Pain and the Healing Process ([id number]) with the Integrative Medicine and Health ([id number]), and ???Appointments Required Before Your Surgery?? (no MC). These were reviewed in detail. (x) Preoperative medication education provided through [employer] Expert (x) Preoperative COVID-19 testing ordered and discussed with patient (x)Preop OT appt (total shoulders only). Patient filled out TOTAL JOINT ARTHROPLASTY DISCHARGE PLANNING FORM (agH: Forms 08/30/2013 / CF-108). 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 Additional Pamphlets also reviewed: (x) Shoulder Replacement Surgery: Reverse Prosthesis ([id number]) and reviewed teaching points for total shoulders instructions. Patient is ready to learn, no apparent learning barriers were identified. Reviewed diagnosis and treatment plan; patient verbalized understanding through teach back. All questions were answered. Patient has contact information and understands the need to call with any questions or concerns. Post op appointments: 1st po with surgeon or physician trust administrative assistant: (x) made ()TBD documented in this encounter Plan of Treatment Not on filedocumented as of this encounter Visit Diagnoses Diagnosis Preanesthetic Medical Exam - Primary Primary Osteoarthritis Shoulder Left documented in this encounter Additional Health Concerns Assessment Noted Time PHQ-9 Depression Total Score: 2 03/08/2015 11:16 AM CS T documented as of this encounter Care Teams Sales And Marketing Representative Relationship Specialty Start Date End Date Silver Givens M.D. PCP - General Family Medicine 11/10/19 12/09/[address] [place] [phone] documented as of this encounter
--- OUTSIDE RECORDS SUMMARY | 2021-12-17 09:47 | XMS_ITS | Encounter Summary ---
:1940 Author Organization [facility] Address [address] [place] [address] Care Team Providers Name Role Phone Elsewhere, Pcp Primary Care Provider Unavailable Reason for Visit Appointment Request (Routine) - Closed Specialty Diagnoses / Procedures Referred By Contact Refer red To Contact Orthopedic Surgery Referral ID Status Reason Start Date Expiration Date Visits Requ ested Visits Authorized [id number] Closed 11/10/2018 11/10/2019 1 1 Encounter Details Date Type Department Care Team Description 11/25/2018 Office Visit Department of Marv Dodson, Bursitis (Primary Dx); Orthopedic Surgery in [facility] Pain Shoulder Left [address] [phone] Social History Tobacco Use Types Packs/Day Years Used Date Smoking Tobacco: Former Smokeless Tobacco: Never Alcohol Use Standard Drinks/Week Comments No 0 (1 standard drink = 0.6 oz pure alcoho l) Sex Assigned at Date Recorded Not on file documented as of this encounter Progress Notes Marv Dodson M.D. - 11/25/2018 8:45 AM CDT CHIEF COMPLAINT/REASON FOR VISIT Left shoulder pain. HISTORY OF PRESENT ILLNESS Obey is a 78-year-old gentleman known to me for rotator cuff arthropathy. 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 He is holding off on any treatment surgically with his left shoulder for now. He is doing injections, anti-inflammatories, and activity modification. Last injection was 3 months ago. He states this was helpful for about 2 months. His symptoms have come back, difficulties reaching over head, difficulties with pain at night on occasion but most notably just simply having pain in his shoulder. He is wondering if another injection is an option. OBJECTIVE PHYSICAL EXAMINATION The patient is alert and pleasant, no acute distress. Active forward elevation is to about 80 degrees however, passive forward elevation is 160 without significant pain. His external rotation is 40 degrees today at best. ASSESSMENT / PLAN #1 Left shoulder rotator cuff arthropathy PLAN: At this point the patient would like another injection. I think it is very reasonable to continue with this. He wants to wait for another year before he has the surgery. We discussed risks and benefits of the cortisone injection and he desires to proceed. PROCEDURE: Please see the procedural note for full details, but I injected 40 mg Kenalog and 4 mL of0.25% Marcaine plain into the subacromial space of the left shoulder without complication. The patient tolerated this injection well. We will plan on seeing him back in the future as needed. documented in this encounter Procedure Notes Marv Dodson M.D. - 11/25/2018 8:45 AM CDTAssociated Order(s): fpn-myac-qknodthh-elbow arthrocentesis: L subacromial bursa Post-Procedure Diagnose(s): Bursitis; Pain Shoulder Left Shoulder site - L subacromial bursa : injection only Date/Time: 11/25/2018 9:08 AM Performed by: Marv Dodson M.D. Authorized by: Marv Dodson M.D. PROCEDURE DETAILS Procedure Location shoulder Shoulder site: L subacromial bursa Site prep: [...] Name Priority Date/Time Associated Diagnosis Comme nts DE ARTHCS ASP/INJ Routine 11/25/2018 8:45 AM Bursitis Results for this MJR JT WO US CDT Pain Shoulder Left procedure are in the results section. documented in this encounter Results DE ARTHCS ASP/INJ MJR JT WO US (11/25/2018 8:45 AM CDT) Narrative Marv Dodson M.D. - 11/25/2018 8: 45 AM CDT Marv Dodson M.D. ? 11/25/2018 11:09 AM Shoulder site - L subacromial bursa : in jection only Date/Time: 11/25/2018 9:08 AM Performed by: aMrv Dodson M.D. Authorized by: Marv Dodson M.D. PROCEDURE DETAILS Procedure Location shoulder Shoulder site: L subacromial bursa Site prep: [...] an d follow-up with ordering provider Marv West M.D. PROCEDURE/MINOR SURGICAL ORD ERABLES documented in this encounter Visit Diagnoses Diagnosis Bursitis - Primary Pain Shoulder Left documented in this encounter Administered Medications Inactive Administered Medications - up to 3 most recent administrations Medication Order MAR Action Action Date Dose Rate Site bupivacaine PF 0.25 % (2.5 mg/mL) Given 11/25/2018 9:08 AM CDT 4 mL injection 4 mL (MARCAINE) 4 mL, infiltration, One-Time Injection, Starting on Fri11/25/18 at 0908, For 1 dose triamcinolone acetonide injection 40 mg Given 11/25/2018 9:08 AM CDT 40 mg (KENALOG-40) 40 mg, intra-articular, One-Time Injection, Starting on Fri11/25/18 at 0908, For 1 dose documented in this encounter Additional Health Concerns Assessment Noted Time PHQ-9 Depression Total Score: 2 03/08/2015 11:16 AM CS T documented as of this encounter Care Teams Teacher Lip Reading Relationship Specialty Start Date End Date Elsewhere, Pcp PCP - General Internal Medicine 08/17/18 11/09/19 documented as of this encounter
--- OUTSIDE RECORDS SUMMARY | 2021-12-17 09:47 | XMS_ITS | Encounter Summary ---
:1940 Author Organization [facility] Address [address] [place] [address] Care Team Providers Name Role Phone Silver Givens M.D. 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 pantoprazole (PROTONIX) Take 40 mg by mouth 0 03/07/2020 40 mg EC tablet daily. sennosides-docusate Take 1 tablet by 90 [...] Associated Diagnosis Comme nts SARS CORONAVIRUS-2 Routine 01/22/2020 9:29 AM Primary Osteoart hritis Results for this RNA, V CDT Shoulder Left procedure are in the results section. documented in this encounter Results SARS Coronavirus-2 RNA, V Asymptomatic (01/22/2020 9:29 AM CDT) [facility] Method Time Signature SARS-CoV-2 Swab, 01/22/2020 [facility] Specimen Nasopharynx 11:32 PM Source CDT SARS CoV-2 Undetected Undetected 01/22/2020 [facility] RNA, TMA 11:32 PM CDT Comment: SARS-CoV-2 RNA absent. This result does not rule out COVID-19 in the patient, as the sensitivity of the test depends o n the timing of the specimen collection and the quality of the specim en. Result should be correlated with patient's history and clinical presentat ion. ----ADDITIONAL INFORMATION---- This test is performed using the Aptima SARS-CoV-2 assay ([employer] which has received Emergency Use Authori zation (EUA) by the U.S. Food and Drug Administration. Fact sheets for this Emergency Use Autho rization (EUA) assay can be found at the following links: For Healthcare Providers: https://www.[employer] a.gov/media/329820/download For Patients: https://www.fda.gov/media/ 642986/download Specimen Anatomical Collection Method Collection Time Receive d Time (Source) Location / / Volume Laterality Varies 01/22/2020 9:29 AM 0 3:53 (Nasopharynx) CDT PM CDT Marv Dodson M.D. LAB MICROBIOLOGY - GENERAL O KIMI Performing Organization Address City/State/[facility] Phon e Number [facility]- [address] [place] [address] [phone] [facility] [place] [address] [address] documented in this encounter Visit Diagnoses Diagnosis Primary Osteoarthritis Shoulder Left documented in this encounter Additional Health Concerns Infection Onset Date Last Indicated Resolved Time COVID19 Pending 01/22/2020 01/22/2020 01/22/2020 11:33 PM CDT Assessment Noted Time PHQ-9 Depression Total Score: 2 03/08/2015 11:16 AM CS T documented as of this encounter Care Teams Boat Finisher Relationship Specialty Start Date End Date Silver Givens M.D. PCP - General Family Medicine 11/10/19 12/09/[address] [place] [phone] documented as of this encounter
--- OUTSIDE RECORDS SUMMARY | 2021-12-17 09:47 | XMS_ITS | Encounter Summary ---
:1940 Author Organization [facility] Address [address] [place] [address] Care Team Providers Name Role Phone Silver Givens M.D. Primary Care Provider Encounter Details Date Type Department Care Team Description 01/25/2020 Ancillary Procedure Department of General Surgery Social History Tobacco Use Types Packs/Day Years Used Date Smoking Tobacco: Former Smokeless Tobacco: Never Alcohol Use Standard Drinks/Week Comments No 0 (1 standard drink = 0.6 oz pure alcoho l) Sex Assigned at Date Recorded Not on file documented as of this encounter Plan of Treatment Not on filedocumented as of this encounter Procedures Procedure Name Priority Date/Time Associated Diagnosis Comme nts SURGERY IMAGE EXAM Routine 01/25/2020 10:20 AM Re sults for this CDT procedure are i n the results section. documented in this encounter Results Non-Radiology Image-Surgery Image Exam (01/25/2020 10:20 AM CDT) Specimen (Source) Anatomical Collection Method Collection Time Re ceived Time Location / / Volume Laterality 01/25/2020 10:19 AM CDT Narrative [facility] - 01/25/2020 11:39 AM CDT This order has been created [...] Total Score: 2 03/08/2015 11:16 AM JENNA Anthony documented as of this encounter Care Teams Wash Box Operator Relationship Specialty Start Date End Date Silver Givens M.D. PCP - General Family Medicine 11/10/19 12/09/[address] [place] [phone] documented as of this encounter
--- OUTSIDE RECORDS SUMMARY | 2021-12-17 09:47 | XMS_ITS | Encounter Summary ---
:1940 Author Organization [facility] Address [address] [place] [address] Care Team Providers Name Role Phone Silver Givens M.D. Primary Care Provider Reason for Visit Reason Comments Med list questions Encounter Details Date Type Department Care Team Description 01/20/2020 Clinical Communication Department of Silver Givens Me d list questions Family Medicine, [place] [address], in [address] [phone] [facility] [phone] [place], [place] (Work) [phone] Social History Tobacco Use Types Packs/Day Years Used Date Smoking Tobacco: Former Smokeless Tobacco: Never Alcohol Use Standard Drinks/Week Comments No 0 (1 standard drink = 0.6 oz pure alcoho l) Sex Assigned at Date Recorded Not on file documented as of this encounter Miscellaneous Notes Telephone Encounter - Prachi Davis, RSelvin - 2020 11:10 AM CDT SUBJECTIVE CHIEF COMPLAINT / REASON FOR CALL Med list questions Information Discussed Pt contacted who states he wasn't aware that Metformin was on his medication list any longer. Pt states it was prescribed about 5 years ago, and he only took it for a few days/weeks, but then stopped because he couldn't tolerate it. RN updated pt's medication list, and reassured him that the preop medication directions are a generic template. Per chart review, pt's recent hgb A1C and fasting glucose appear within range. PLAN Disposition/Recommendation: recommended continue engagement in self-management activities Information/Education: patient/caller able to teach back Caller agreeable to plan of care: yes The following references were used: none Telephone Encounter - Silver Givens M.D., Ph.D. - 2020 10:30 AM CDT Get specific questions please Telephone Encounter - Sindi Luna - 01/20/2020 8:54 AM CDT Reason for Communication: Pt called, stated he just has pre-op appt 01/17. He has questions regardingmedication list. Current Can Nursing/Provider leave a detailed message?: no Did the patient refuse triage through Nurse line? (for symptom based concerns): na Action Needed: Please call pt back. Name of Medication (if relevant): na documented in this encounter Plan of Treatment Not on filedocumented as of this encounter Visit Diagnoses Not on filedocumented in this encounter Additional Health Concerns Assessment Noted Time PHQ-9 Depression Total Score: 2 03/08/2015 11:16 AM CS T documented as of this encounter Care Teams Manager Mortgage Relationship Specialty Start Date End Date Silver Givens M.D. PCP - General Family Medicine 11/10/19 12/09/[address] [place] [phone] documented as of this encounter
--- OUTSIDE RECORDS SUMMARY | 2021-12-17 09:47 | XMS_ITS | Encounter Summary ---
:1940 Author Organization [facility] Address [address] [place] [address] Care Team Providers Name Role Phone Silver Givens M.D. Primary Care Provider Reason for Visit Reason Comments Surgical Listing 01/25/[address] shoulder reversal [address] Dodson Encounter Details Date Type Department Care Team Description 12/15/2019 Clinical Communication Department of Tanya Dodson Listing Orthopedic Surgery Marisela Fair (01/25/20 left total in [address] Dodson ) [address] [place] [phone] Social History Tobacco Use Types Packs/Day Years Used Date Smoking Tobacco: Former Smokeless Tobacco: Never Alcohol Use Standard Drinks/Week Comments No 0 (1 standard drink = 0.6 oz pure alcoho l) Sex Assigned at Date Recorded Not on file documented as of this encounter Miscellaneous Notes Telephone Encounter - Amanda Martinez L.P.N. - 01/20/2020 11:51 AM CDT COVID Screening Questions Does the patient, anyone [...] No Headache: No Chills: No Myalgias: No Loss of smell: No Change or loss of taste sensation: No 3. Does the patient or visitor have close contact with a person under quarantine or isolation, or wisam LABORATORY CONFIRMED case of COVID-19? Close contact defined as being within 6 feet of a COVID-19 patient for more than 5 mintues or having direct contact with infectious secretions of a COVID-19 case? (ie being coughed on) No 4. Has the patient been tested for COVID-19 with a positive or pending result due to symptoms ? No If yes to any of these questions, patient is considered interview positive and should be referred tothe [facility] Nurse Line (Phone number ) and this information communicated to clinical team responsible for the operation. Sent to COVID Nurse Triage No Patient was instructed to call department if they develop any of the above symptoms prior to the procedure or surgery date. Yes Patient advised that it is best to stay home once screened until the procedure is completed if possible. Yes Patient verbalized back understanding of the PCR swab plan and when to complete and at which site. Yes Telephone Encounter - Shayla Espana R.N. - 01/18/2020 4:26 PM CDT OT contacts the patient but we do not schedule them for an appointment any longer since COVID. Telephone Encounter - Agnes Jha R.N. - 01/18/2020 4:00 PM CDT Patient is required to have an OT appointment prior to surgery. I see an order for PT Eval and Treat. Does this cover the OT appointment? Telephone Encounter - Nathaly Pierre - 12/15/2019 3:28 PM CDT Left shoulder reversal replacement with Dr Dodson 01/25/20 documented in this encounter Plan of Treatment Not on filedocumented as of this encounter Visit Diagnoses Not on filedocumented in this encounter Additional Health Concerns Assessment Noted Time PHQ-9 Depression Total Score: 2 03/08/2015 11:16 AM CS T documented as of this encounter Care Teams Dry Cell Assembly Supervisor Relationship Specialty Start Date End Date Silver Givens M.D. PCP - General Family Medicine 11/10/19 12/09/[address] [place] [phone] documented as of this encounter
--- OUTSIDE RECORDS SUMMARY | 2021-12-17 09:47 | XMS_ITS | Encounter Summary ---
:1940 Author Organization [facility] Address [address] [place] [address] Care Team Providers Name Role Phone Silver Givens M.D. 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] Procedures ARTHROPLASTY TOTAL REVERSE SHOULDER- Referral ID Status Reason Start Date Expiration Date Visits Requ ested Visits Authorized [id number] 1 1 Encounter Details Date Type Department Care Team Description 01/25/2020 Anesthesia Event [facility] Anali Anne M.D. [address] [place] [address] Vicky1 Chirsta Ball M.D. [address] [phone] [place] [place] [phone] Anesthesia Record Procedure Summary Procedure Name Responsible Anesthesia Start Anesthesia Stop Anesthesiologist Time Time ARTHROPLASTY TOTAL Anali Dodson M.D. 01/25/20 1309 01/04 06/24 1524 REVERSE SHOULDER- (Left: Shoulder) Events Date Time Event Comment 01/25/2020 1104 1118 An Start Data 1131 an stop data 1309 An Start Machine/Equipmen t Checked Infection Precautions Foll owed Procedure/Site Verified NPO Sta tus Verified Supine Standard ASA Mon itors Applied 1314 An Induction 1327 An Intubation 1332 Turnover to Proceduralist 1357 Proc Start 1507 Proc Fin 1517 Turnover to ANE Staff 1517 Airway Removal Criteria Met 1517 Extubation/Airway Removed 1524 An End I completed my h andoff to the receiving staff during [facility] we 1. Identified the patient 2. Ident ified the responsible provider 3. Revi ewed the pertinent medical history 4. Discussed the surgical course 5. Review ed intra-op anesthesia management and i ssues during anesthesia 6. Set expectati ons for post-procedure period 7. Allowe d opportunity for questions and ac knowledgement of understanding. Name Total fentaNYL 50 mcg/mL injection 150 mcg bupivacaine PF 0.5% injection 15 mL dexmedetomidine 200 mcg/2 mL injection Regional 50 mcg ceFAZolin in dextrose (iso-osm) IVPB 2 g (ANCEF) 2 g dexamethasone 4 mg/mL injection 8 mg ePHEDrine PF 5 mg/mL injection 25 mg lidocaine 2% (mg) injection 80 mg propofol 10 mg/mL 150 mg ondansetron 4 mg/2 mL injection 4 mg tranexamic acid 1 g in NaCl 0.9% IVPB 1 g tranexamic acid 1 g in NaCl 0.9% IVPB 1 g lactated ringers 1,500 mL Agents No agents on file. Blood No blood administrations on file. Lines, Drains, and Airways Type Details Placement Removal (RETIRED) Incision 07/21/17; 0856; Eye; 07/21/17 0856 by 0 1020 by Left; No dressing ; Katrina Castillo Mancilman, [place], 01/26/20; 1020 R.N. R.N. Peripheral IV Placement Date: 01/25/20 1051 by 01/26/20 1023 b y 01/25/20; Placement Arti Giron S arah L, Time: 1051; Catheter L, R.N. C.N.A. Size: 20 G; Orientation: Right; Location: Hand; Site Prep: Chlorhexidine (Preferred); Insertion Attempts: 1; Removal Date: 01/26/20; Removal Time: 1023; Removal Reason: Patient discharged Supraglottic Airway Placement Date: 01/25/20 1327 by 01/25/20 15 17 by 01/25/20; Placement Anjel Zayas Butler, Yoo jung, Time: 1327 (created via ACCOUNT DIRECTOR, HARDNESS TESTER, DNAP ACCOUNT DIRECTOR, C RNA, DNAP procedure documentation); Mask Ventilation: Not attempted; Removal Date: 01/25/20; Removal Time: 1517 (RETIRED) Incision 01/25/20; 1403; 01/25/20 1403 by 01/23/21 141 8 by Shoulder; Left; Freeman beckham Tammara L, [facility]; 01/23/21 (Removed R.N. d, Sche duling by background completion Automat ed Batch Job utility); 1418 (Removed by background completion utility) documented in this encounter Social History Tobacco Use Types Packs/Day Years Used Date Smoking Tobacco: Former Smokeless Tobacco: Never Alcohol Use Standard Drinks/Week Comments No 0 (1 standard drink = 0.6 oz pure alcoho l) Sex Assigned at Date Recorded Not on file documented as of this encounter OR Notes Anesthesia Postprocedure Evaluation - Anali Dodson M.D. - 01/25/2020 4:08 PM CDT Patient: Obey Vines Procedure Summary Date: 01/25/20 Room / Location: [address] 1407 / [facility] - Anesthesia Start: 1309 Anesthesia Stop: 1524 Procedure: ARTHROPLASTY TOTAL REVERSE SHOULDER- (Left Shoulder) Diagnosis: Primary Osteoarthritis Shoulder Left (Primary Osteoarthritis Shoulder Left [M19.012]) Surgeon: Marv Dodson M.D. Responsible Provider: Anali Dodson M.D. Anesthesia Type: general with pain block ASA Status: 3 Anesthesia Type: general with pain block Last vitals Vitals Value Taken Time BP 126/74 01/25/2020 4:05 PM Temp 35.8 ??C 01/25/2020 3:45 PM Pulse 68 01/25/2020 4:07 PM Resp 17 01/25/2020 4:07 PM SpO2 95 % 01/25/2020 4:07 PM Vitals shown include unvalidated device data. Please reference Vitals flowsheet for most recent vital signs. Anesthesia Post Evaluation Patient Disposition: general care unit Cardiovascular status: hemodynamics (HR & BP) acceptable Respiratory status: patent airway with spontaneous effort Temperature: normothermic Oxygen requirements: room air Level of consciousness: awake Pain score: pain adequately controlled and/or at baseline Post Op nausea/vomiting: none Hydration status: euvolemic Anesthesia Procedure Notes - Anjel Zayas - 01/25/2020 2:03 PM CDTAssociated Order(s): Airway Airway Date/Time: 01/25/2020 1:27 PM Performed by: Anjel Zayas Authorized by: Anali Dodson M.D. Patient location during procedure: OR / Procedure Area PROCEDURE DETAILS: Mask difficulty assessment: not attempted Final airway type: supraglottic airway Laryngeal Manipulation: no Supraglottic device: LMA unique Supraglottic device size: 5 Adult device size: 5 Number of attempt to successful placement: 2 (First attempt was with Air Q 3.5) Airway confirmation: bilateral breath sounds, positive ETCO2 and bilateral chest rise Other previous techniques attempted: none PRE PROCEDURE DETAILS: Pre evaluation for airway management: procedure Urgency: elective Preop assessment of probable difficulty: no difficulty anticipated Preoxygenation: bag valve mask SEDATION / ANESTHESIA Anesthesia method: anesthesia POST PROCEDURE DETAILS: Procedure outcome: successful Airway event: no complications Anesthesia Procedure Notes - Marv Simmons APRN, CRNA - 01/25/2020 11:33 AM CDTAssociated Order(s): Regional Block Regional Block Date/Time: 01/25/2020 11:25 AM Performed by: Marv Simmons APRN, CRNA Authorized by: Marv Simmons APRN, CRNA Location: Pre Op / PACU PROCEDURE DETAILS: Block type: post-op pain block Block type comment: Post-Op pain block at request of surgeon Upper extremity: interscalene Positioning: supine Laterality: left Block technique: ultrasound guided Ultrasound image: image acquired and saved Interscalene blockade were identified. Local anesthetic was injected under direct visualization and good circumferential spread was observed. No pain on injection or needle advancement. No complications noted patient tolerated procedure well. Injection technique: single injection Needle type: echogenic Gauge: 20G Length: 5 Test dose: no test dose given Incremental injection of local anesthetic with aspiration every:5cc Pain with needle advancement or injection of local anesthetic: no Injected Medications: Injection(s), anesthetic agent(s) and/or steroid; See MAR UNIVERSAL PROTOCOL All relevant documentation and testing were reviewed and available. All required blood products, implants, devices and or special equipment were made available as applicable. Pre-procedure verificationwas conducted and the correct site was marked if required. A fire risk assessment was done as applicable. The procedural time-out was conducted prior to performing the procedure and confirmed in a procedural pause. PRE-PROCEDURE DETAILS: Appropriate hand hygiene, gown, cap, mask, protective eyewear, sterile gloves, skin preparation, sterile drape, and strict aseptic technique were utilized as applicable for the procedure.: yes Skin prep: chlorhexidine SEDATION / ANESTHESIA Anesthesia method: local infiltration Local infiltrate type: lidocaine POST-PROCEDURE DETAILS: Procedure completed successfully: successful procedure Other complications: none Anesthesia Preprocedure Evaluation - Anali Dodson M.D. - 01/19/2020 10:27 AM CDT Preprocedure Anesthesia & H&P Assessment Procedure Summary Date/Time: 01/25/20 1245 Procedure: ARTHROPLASTY TOTAL REVERSE SHOULDER-Left reverse total shoulder arthroplasty (Left ) Diagnosis: Primary Osteoarthritis Shoulder Left [M19.012] Pre-op diagnosis: Primary Osteoarthritis Shoulder Left [M19.012] Location: OR [facility] 9250 / [facility] - GI Surgeon: Marv Dodson M.D. Pertinent components of the patient's history including current problem list, medical history, surgical history, family history, social history, medications and allergies were reviewed. Present illnessand pre-op diagnosis were confirmed. The planned surgery / procedure was verified with the patient /legal guardian. The patient's general health condition remains unchanged PROBLEM LIST Relevant Problems CV (+) Atherosclerotic Heart Disease Of [place] Coronary Artery Without Angina Pectoris (+) Peripheral Vascular Disease (HCC) GI (+) Gastroesophageal Reflux Disease Without Esophagitis Other (+) Primary Osteoarthritis Shoulder Left (+) Stroke Cerebrovascular Accident Personal History Hx NSTEMI 08/2018-s/p SHAHAB to LAD-plavix/ASA Labs reviewed EKG- NSR, PVCs, Right BBB S/p Left CEA in past S/p reverse TSA [id number] plus block Hx of memory issues after a surgery OBJECTIVE PHYSICAL EXAMINATION Airway (HEENT) Mallampati: I TM Distance: >3 FB Neck ROM: Full Mouth Opening: >3 cm Upper Lip Bite Test Class: I Cardiovascular Rhythm: Regular Rate: Normal Cardiovascular Assessment: cardiovascular normal Functional Capacity: >4 METS Pulmonary Pulmonary Assessment: Clear General / Constitutional Constitutional Assessment: Normal General State of Health:: healthy appearing and calm Neurological Neurologic Assessment:??alert and alert and oriented x 3 Dental Dental Assessment: upper dentures ASSESSMENT / PLAN ANESTHESIA PLAN ASA: 3 Anesthesia Plan: general with pain block Patient seen and allergies reviewed, anesthesia plan and risks discussed directly with patient /legal guardian or through an circular knitter helper. Risks/Benefits/Alternatives of Blood transfusion discussed with patient / legal guardian, including an opportunity to ask questions and/or decline some or all transfusion therapies. The patient / legalguardian consented to the use of all blood products, as deemed medically necessary Approval to Proceed: approved for anesthesia documented in this encounter Plan of Treatment Not on filedocumented as of this encounter Procedures Procedure Name Priority Date/Time Associated Comments Diagnosis LDA ANE NON-SURGICAL Routine 01/25/2020 2:03 PM R esults for this AIRWAY CDT procedure are i n the results section. MC ANE NERVE BLOCK Routine 01/25/2020 11:33 AM Re sults for this WITH ULTRASOUND CDT procedure ar e in the results section. IA US GUIDE PLC NDL Routine 01/25/2020 11:33 AM R esults for this CDT procedure are i n the results section. IA INJ ANES BRACHIAL Routine 01/25/2020 11:33 AM Results for this PLEX CDT procedure are i n the results section. documented in this encounter Results LDA ANE NON-SURGICAL AIRWAY (01/25/2020 2:03 PM CDT) Narrative Anjel Zayas - 01/25/2020 2:03 PM CDT Anjel Zayas ? 01/25/2020 ??2:04 PM Airway Date/Time: 01/25/2020 1:27 PM Performed by: Anjel Zayas Authorized by: Anali Dodson M.D. Patient location during procedure: OR / Procedure Area PROCEDURE DETAILS: Mask difficulty assessment: not attempte d Final airway type: supraglottic airway Laryngeal Manipulation: no ?? Supraglottic device: LMA unique ?? Supraglottic device size: 5 ?? Adult device size: 5 Number of attempt to successful placemen t: 2 (First attempt was with Air Q 3.5) Airway confirmation: bilateral breath so unds, positive ETCO2 and bilateral chest rise Other previous techniques attempted: non e PRE PROCEDURE DETAILS: Pre evaluation for airway management: pr ocedure Urgency: elective Preop assessment of probable difficulty: no difficulty anticipated Preoxygenation: bag valve mask SEDATION / ANESTHESIA Anesthesia method: anesthesia POST PROCEDURE DETAILS: ? Procedure outcome: successful ?? Airway event: no complications Anali Dodson M.D. ANESTHESIA ORDERABLES IA INJ ANES BRACHIAL PLEX, IA US GUIDE [facility] NDL, ANE NERVE BLOCK WITH ULTRASOUND (01/25/2020 11:33AM CDT) Narrative Marv Simmons APRN, CRNA - 01/25/20 11:33 AM CDT Marv Simmons APRN, CRNA ? 01/25/2020 11:37 AM Regional Block Date/Time: 01/25/2020 11:25 AM Performed by: Marv Simmons APRN, C RNA Authorized by: Marv Simmons APRN, CRNA Location: Pre Op / PACU PROCEDURE DETAILS: Block type: post-op pain block ?? Block type comment: Post-Op pain block a t request of surgeon Upper extremity: interscalene Positioning: supine ?? Laterality: left Block technique: ultrasound guided ?? Ultrasound image: image acquired and mike ed Interscalene blockade were identified. L ocal anesthetic was injected under direct visualization and good circumfere ntial spread was observed. No pain on injection or needle advancement. No c omplications noted patient tolerated procedure well. Injection technique: single injection Needle type: echogenic Gauge: 20G Length: 5 Test dose: no test dose given ?? Incremental injection of local anestheti c with aspiration every:5cc Pain with needle advancement or injectio n of local anesthetic: no ?? Injected Medications: Injection(s), anes thetic agent(s) and/or steroid; See MAR UNIVERSAL PROTOCOL All relevant documentation and testing w ere reviewed and available. All required blood products, implants, devic es and or special equipment were made available as applicable. Pre-proced ure verification was conducted and the correct site was marked if required. A fire risk assessment was done as applicable. The procedural time-out w as conducted prior to performing the procedure and confirmed in a procedu ral pause. PRE-PROCEDURE DETAILS: ?? Appropriate hand hygiene, gown, cap, mas k, protective eyewear, sterile gloves, skin preparation, sterile drape, and strict aseptic technique were utilized as applicable for the procedure .: yes ?? Skin prep: chlorhexidine SEDATION / ANESTHESIA Anesthesia method: local infiltration Local infiltrate type: lidocaine POST-PROCEDURE DETAILS: Procedure completed successfully: succes sful procedure Other complications: none Marv Simmons APRN, CRNA PROCEDURE/MINOR SURGICAL O RDERABLES documented in this encounter Visit Diagnoses Not on filedocumented in this encounter Administered Medications Inactive Administered Medications - up to 3 most recent administrations Medication Order MAR Action Action Date Dose Rate Site bupivacaine PF 0.5 % (5 mg/mL) Given 01/25/2020 11:26 AM CDT 15 mL injection (MARCAINE) As needed, Starting on Fri01/25/20 at 1126, Anesthesia Intra-op ceFAZolin in dextrose (iso-osm) IVPB 2 g (ANCEF) Given 01/25/2020 1:42 PM CDT 2 g 2 g (rounded from 1.74 g = 25 mg/kg ? 69.6 kg), intravenous, at 100 mL/hr, Administer over 30 Minutes, Once, On Fri01/25/20 at 1030, For 1 dose, Intra-Op, Preoperatively within 1 hour prior to surgical incision premix bag, Drug Monitoring Program: Pharmacist to adjust medication dosing based on indication and drug clearance factors., Indications: Prophylaxis, surgical dexAMETHasone injection (DECADRON) Given 01/25/2020 1:49 PM CDT 8 mg As needed, Starting on Fri01/25/20 at 1349, Anesthesia Intra-op dexMEDEtomidine injection (PRECEDEX) Given 01/25/2020 11:26 AM CDT 50 mcg As needed, Starting on Fri01/25/20 at 1126, Anesthesia Intra-op ePHEDrine (PF) injection Given 01/25/2020 2:04 PM CDT 5 mg As needed, Starting on Fri01/25/20 at 1334, Anesthesia Intra-op Given 01/25/2020 1:46 PM CDT 10 mg Given 01/25/2020 1:34 PM CDT 10 mg fentaNYL injection (SUBLIMAZE) Given 01/25/2020 2:14 PM CDT 25 mcg intravenous, As needed, Starting on Fri01/25/20 at 1123, Anesthesia Intra-op Given 01/25/2020 1:53 PM CDT 25 mcg Given 01/25/2020 11:23 AM CDT 100 mcg lactated ringers New Bag 01/25/2020 1:52 PM CDT 20 mL/hr, intravenous, Continuous, Starting on Fri01/25/20 at 1030, Pre-Op New Bag 01/25/2020 11:18 AM CDT lidocaine (PF) (cardiac) injection Given 01/25/2020 1:24 PM CDT 80 mg intravenous, As needed, Starting on Fri01/25/20 at 1324, Anesthesia Intra-op ondansetron (PF) injection (ZOFRAN) Given 01/25/2020 2:47 PM CDT 4 mg intravenous, As needed, Starting on Fri01/25/20 at 1447, Anesthesia Intra-op propofoL injection (DIPRIVAN) Given 01/25/2020 1:25 PM CDT 150 mg intravenous, As needed, Starting on Fri01/25/20 at 1325, Anesthesia Intra-op tranexamic acid 1 g in NaCl 0.9% IVPB New Bag 01/25/2020 1:43 PM CDT 1 g Administer over 20 Minutes, Continuous Infusion: Per Instructions PRN, Starting on Fri01/25/20 at 1343, Anesthesia Intra-op tranexamic acid 1 g in NaCl 0.9% IVPB New Bag 01/25/2020 2:54 PM CDT 1 g Administer over 20 Minutes, Continuous Infusion: Per Instructions PRN, Starting on Fri01/25/20 at 1454, Anesthesia Intra-op documented in this encounter Additional Health Concerns Assessment Noted Time PHQ-9 Depression Total Score: 2 03/08/2015 11:16 AM CS T documented as of this encounter Care Teams Fire Ranger Relationship Specialty Start Date End Date Silver Givens M.D. PCP - General Family Medicine 11/10/19 12/09/[id number] [place] [phone] documented as of this encounter
--- OUTSIDE RECORDS SUMMARY | 2021-12-17 09:47 | XMS_ITS | Encounter Summary ---
:1940 Author Organization [facility] Address [address] [place] [address] Care Team Providers Name Role Phone Silver Givens M.D. Primary Care Provider Reason for Visit Reason Comments Medication Visit recheck Encounter Details Date Type Department Care Team Description 12/14/2019 Office Visit Department of Family Silver Givens, Pain Shoulder Left (Primary Dx); Margarito Kiser M.D. Atherosclerotic Heart Disease Of [place] Coronary Artery Without Angina Pectoris; [facility], in [address] [place] [address] Hyperten sive Heart Disease Without Heart Failure; [place], [facility] Hyperlipidemia; [place], [place] Peripheral Vascular Disease (HCC); [address] [place] [address] [address] [id number] Polymyalgia Rheumatica (HCC) [place], [place] [phone] [phone] (Work) [phone] Social History Tobacco Use Types Packs/Day Years Used Date Smoking Tobacco: Former Smokeless Tobacco: Never Tobacco Cessation: Counseling Given: No Alcohol Use Standard Drinks/Week Comments No 0 (1 standard drink = 0.6 oz pure alcoho l) Sex Assigned at Date Recorded Not on file documented as of this encounter Last Filed Vital Signs Vital Sign Reading Time Taken Comments Blood Pressure 135/65 12/14/2019 11:08 AM CDT Pulse 64 12/14/2019 11:08 AM CDT Temperature 36.7 ??C (98.1 ??F) 12/14/2019 11:08 AM CDT Respiratory Rate - - Oxygen Saturation 94% 12/14/2019 11:08 AM CDT Inhaled Oxygen Concentration - - Weight 69.6 kg (153 lb 7 oz) 12/14/2019 11:08 AM CDT Height - - Body Mass Index 24.96 08/15/2018 1:15 AM CDT documented in this encounter Progress Notes Silver Givens M.D., Ph.D. - 12/14/2019 11:30 AM CDT SUBJECTIVE CHIEF COMPLAINT / REASON FOR VISIT Obey Vines is a 79 y.o. male who presents for evaluation of Medication Visit (recheck). HISTORY OF PRESENT ILLNESS He has left-sided shoulder pain present for 2 year(s). The pain is aching with radiation to arm. Thepain started after no specific event. He does have a history of shoulder pain. Palliative factors include rest and provocative factors include abduction. Treatments so far have included cortisone injections. MRI reviewed. Here for followup of coronary artery disease, PVD, hypertension and hypercholesterolemia, controlledwith medication. In general, a healthy diet and exercise regimen is followed, and he continues to work on healthy habits. Compliant with medications and has no cardiovascular symptoms. He has a history of PMR, not active presently. The following portions of the patient's history were reviewed and updated as appropriate: allergies,current medications, family history, medical history, social history, surgical history and problem list. REVIEW OF SYSTEMS All other systems reviewed and are negative. PHYSICAL EXAM Vitals signs and nursing note reviewed. Constitutional [...] Judgment: Judgment normal. ASSESSMENT / PLAN #1 Pain Shoulder Left Recommend orthopedic evaluation #2 Atherosclerotic Heart Disease Of [place] Coronary Artery Without Angina Pectoris Continue current medications and treatments. Pros/cons/side effects/alternatives and complications reviewed in detail. #3 Hypertensive Heart Disease Without Heart Failure Continue current medications and treatments. Pros/cons/side effects/alternatives and complications reviewed in detail. #4 Hyperlipidemia Continue current medications and treatments. Pros/cons/side effects/alternatives and complications reviewed in detail. #5 Peripheral Vascular Disease (HCC) Continue current medications and treatments. Pros/cons/side effects/alternatives and complications reviewed in detail. #6 Polymyalgia Rheumatica (HCC) Monitor. 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 PCP - General Family Medicine 11/10/19 12/09/[id number] [phone] documented as of this encounter
--- OUTSIDE RECORDS SUMMARY | 2021-12-17 09:47 | XMS_ITS | Encounter Summary ---
:1940 Author Organization [facility] Address [address] [place] [address] Care Team Providers Name Role Phone Silver Givens M.D. Primary Care Provider Reason for Referral Outpatient (Routine) - Closed Specialty Diagnoses / Procedures Referred By Contact Refer red To Contact Family Medicine Diagnoses Primary Osteoarthritis [facility] [address] [place] [address] Referral ID Status Reason Start Date Expiration Date Visits Requ ested Visits Authorized [id number] Closed 12/15/2019 12/14/2020 1 1 Outpatient (Routine) - Closed Specialty Diagnoses / Procedures Referred By Contact Refer red To Contact General Surgery Diagnoses Primary Osteoarthritis Shoulder Left [facility] [address] [facility] [place] [address] Referral ID Status Reason Start Date Expiration Date Visits Requ ested Visits Authorized [id number] Closed 12/15/2019 12/14/2020 1 1 Outpatient (Routine) - Closed Specialty Diagnoses / Procedures Referred By Contact Refer nilay To Contact Orthopedic Surgery Marv Dodson M. D. [facility] [address] [place] [address] Referral ID Status Reason Start Date Expiration Date Visits Requ ested Visits Authorized [id number] Closed 12/15/2019 12/14/2020 1 1 Reason for Visit Reason Comments Pain Follow-up Appointment Request (Routine) - Closed Specialty Diagnoses / Procedures Referred By Contact Refer red To Contact Orthopedic Surgery Referral ID Status Reason Start Date Expiration Date Visits Requ ested Visits Authorized [id number] Closed 11/26/2019 11/25/2020 1 1 Encounter Details Date Type Department Care Team Description 12/15/2019 Office Visit Department of [place], Primary Osteoa rthritis Orthopedic Surgery in [place] Shoulder Left (Primary [address] D[address]) [address] [place] [address] [place] [phone] Social History Tobacco Use Types Packs/Day Years Used Date Smoking Tobacco: Former Smokeless Tobacco: Never Alcohol Use Standard Drinks/Week Comments No 0 (1 standard drink = 0.6 oz pure alcoho l) Sex Assigned at Date Recorded Not on file documented as of this encounter Progress Notes Marv Dodson M.D. - 12/15/2019 2:00 PM CDT CHIEF COMPLAINT/REASON FOR VISIT Left shoulder pain. HISTORY OF PRESENT ILLNESS Obey is a 79-year-old right-hand dominant gentleman who is known to me for his left shoulder rotatorcuff arthropathy. We have done conservative measures. We have done medications, injections, therapy,and ultimately symptoms continue to be an issue. He is having a lot of pain with activities, pain atrest, trouble sleeping at night, and ultimately at this point in time, he wants to move forward withshoulder replacement. We have discussed this in the past. He is here desiring to have this done as he is having issues with this arm on a very regular daily basis. OBJECTIVE PHYSICAL EXAMINATION General: The patient is alert, pleasant, no acute distress. Extremities: Active forward elevation about 130 degrees today. External rotation is 30 with discomfort. Internal rotation is to the back pocket. ASSESSMENT / PLAN #1 Left shoulder rotator cuff arthropathy PLAN: At this point in time, the patient would like to move forward with a left reverse total shoulder arthroplasty. He had a right reverse total shoulder arthroplasty done 4 years ago with good results and he is hopeful that his pain will be improved as well as the right side. We discussed risks and benefits of a reverse replacement including, but not limited to, bleeding, infection, nerve damage, failure to resolve symptoms, dislocation, fracture, cardiopulmonary risks associated with surgery and other complications. The patient understands the above. His questions were answered. He wants to do surgery sometime mid to late January pending a preoperative medical evaluation and COVID testing. We will plan on using a Lisa reverse shoulder system. He is looking forward to having his shoulder replaced and will contact the clinic for any questions or concerns. documented in this encounter Plan of Treatment Scheduled Referrals Name Type Priority Associated Diagnoses Order [facility] Orthopedic Surgery Outpatient Referral Routine Ex pected: Post Op (clinic) 12/15/2019 (Approximate), Expires: 12/14/2022 Pre Operative Outpatient Referral Routine Primary Osteoarthrit is Expected: Evaluation [facility]I Shoulder Left 12/15/2019 nurse consult (Approximate), (clinic) Expires: 12/14/2022 Primary Care - SARI Outpatient Referral Routine Primary Osteoar thritis Expected: consult (clinic) Shoulder Left 12/15/2019 (Approximate), Expires: 12/14/2022 documented as of this encounter Results SARS Coronavirus-2 RNA, V Asymptomatic (01/22/2020 9:29 AM CDT) [facility] Method Time Signature SARS-CoV-2 Swab, 01/22/2020 ECLR [...] is performed using the Aptima SARS-CoV-2 assay ([employer] which has received Emergency Use Authori zation (EUA) by the U.S. Food and Drug Administration. Fact sheets for this Emergency Use Autho rization (EUA) assay can be found at the following links: For Healthcare Providers: https://www.MobileDevHQ a.gov/media/503822/download For Patients: https://www.fda.gov/media/ 660724/download Specimen Anatomical Collection Method Collection Time Receive d Time (Source) Location / / Volume Laterality Varies 01/22/2020 9:29 AM 0 3:53 (Nasopharynx) CDT PM CDT Marv Dodson M.D. LAB MICROBIOLOGY - GENERAL O RDERABLES Performing Organization Address City/State/ZIP Code Phon e Number [facility]- [address] [place] [phone] [facility] [place] [address] System in [address] DX Shoulder Left 2+ Views (12/15/2019 3:46 [...] Primary Osteoarthritis Shoulder Left - P rimary Primary Osteoarthritis Shoulder Left documented in this encounter Additional Health Concerns Assessment Noted Time PHQ-9 Depression Total Score: 2 03/08/2015 11:16 AM CS T documented as of this encounter Care Teams Safety And Skill Based Pay Manager Relationship Specialty Start Date End Date Silver Givens M.D. PCP - General Family Medicine 11/10/19 12/09/[address] [place] [phone] documented as of this encounter
--- OUTSIDE RECORDS SUMMARY | 2021-12-17 09:47 | XMS_ITS | Encounter Summary ---
:1940 Author Organization [facility] Address [address] [place] [address] Care Team Providers Name Role Phone Elsewhere, Pcp Primary Care Provider Unavailable Encounter Details Date Type Department Care Team Description 08/28/2018 [facility] (Primary [facility] [address] [place] [address] [phone] Social History Tobacco Use Types Packs/Day Years Used Date Smoking Tobacco: Former Smokeless Tobacco: Never Alcohol Use Standard Drinks/Week Comments No 0 (1 standard drink = 0.6 oz pure alcoho l) Sex Assigned at Date Recorded Not on file documented as of this encounter Plan of Treatment Not on filedocumented as of this encounter Visit Diagnoses Diagnosis Loss Memory - Primary documented in this encounter Additional Health Concerns Infection Onset Date Last Indicated Resolved Time COVID19 Pending 01/22/2020 01/22/2020 01/22/2020 11:33 PM CDT COVID19 Pending 09/25/2020 09/25/2020 09/25/2020 8:20 PM CDT COVID19 Pending 12/04/2021 12/04/2021 12/04/2021 3:27 PM CDT COVID19 Pending 12/07/2021 12/07/2021 12/07/2021 4:30 PM CDT Assessment Noted Time PHQ-9 Depression Total Score: 2 03/08/2015 11:16 AM CS T documented as of this encounter Care Teams Agricultural Sales Representative Relationship Specialty Start Date End Date Elsewhere, Pcp PCP - General Internal Medicine 12/10/21 documented as of this encounter
--- OUTSIDE RECORDS SUMMARY | 2021-12-17 09:47 | XMS_ITS | Encounter Summary ---
:1940 Author Organization [facility] Address [address] [place] [address] Care Team Providers Name Role Phone Elsewhere, Pcp Primary Care Provider Unavailable Reason for Referral Outpatient (Routine) - Closed Specialty Diagnoses / Procedures Referred By Contact Yeimi pemberton To Contact Diagnoses Bursitis Subacromial Left Marv Dodson M.D. [facility] Region Procedures gxj-mzxj-cuzttxmj-elbow arthrocentesis: L subacromial bursa [address] [place] [phone] Referral ID Status Reason Start Date Expiration Date Visits Requ ested Visits Authorized [id number] Closed 03/01/2019 02/29/2020 1 1 Reason for Visit Appointment Request (Routine) - Closed Specialty Diagnoses / Procedures Referred By Contact Yeimi pemberton To Contact Orthopedic Surgery Referral ID Status Reason Start Date Expiration Date Visits Requ ested Visits Authorized [id number] Closed 01/26/2019 01/26/2020 1 Encounter Details Date Type Department Care Team Description 03/01/2019 Office Visit Department of Marv Dodson Bursitis Subacromial Orthopedic Surgery [place] [address] [place] [phone] Social History Tobacco Use Types Packs/Day Years Used Date Smoking Tobacco: Former Smokeless Tobacco: Never Alcohol Use Standard Drinks/Week Comments No 0 (1 standard drink = 0.6 oz pure alcoho l) Sex Assigned at Date Recorded Not on file documented as of this encounter Progress Notes Marv Dodson M.D. - 03/01/2019 9:30 AM CDT CHIEF COMPLAINT/REASON FOR VISIT Left shoulder pain. HISTORY OF PRESENT ILLNESS Obey is a 79-year-old gentleman who is known to me for rotator cuff arthropathy. He had a right reverse total shoulder arthroplasty done a few years back with good result, but is holding off on treatment for now because he recently had a heart attack. He cannot come off his Plavix for a year after hisstenting in August. He has been doing injections, anti-inflammatories, and activity modifications forthis. We discussed how well the last injection worked which was done in November. He states for 2 monthsit relieved his symptoms. He is now having difficulties at rest, trouble sleeping, troubles with movement overhead, and he does state that his symptoms are normally improved with the injection. He is wo ndering if another injection is an option. OBJECTIVE PHYSICAL EXAMINATION On clinical exam, the patient is alert and pleasant, no acute distress. His forward elevation is to approximately 80 degrees actively, passively to about 160. His external rotation is to about 40 degrees today with some discomfort. ASSESSMENT / PLAN #1 Left shoulder rotator cuff arthropathy PLAN: At this point, the patient would like to move forward with another injection. We discussed therisks and benefits of a cortisone injection in his shoulder. He desires to proceed. Please see the procedure note for full details, but I injected 40 mg Kenalog and 4 mL of 0.25% Marcaine plain into the glenohumeral joint left shoulder without complication. Patient tolerated this injection well. Plan see him back in the future as needed for his rotator cuff arthropathy. documented in this encounter Procedure Notes Marv oDdson M.D. - 03/01/2019 9:30 AM CDTAssociated Order(s): jbf-kiyl-ebeykvhz-elbow arthrocentesis: L subacromial bursa Post-Procedure Diagnose(s): Bursitis Subacromial Left Shoulder site - L subacromial bursa : injection only Date/Time: 03/01/2019 9:09 AM Performed by: Marv Dodson M.D. Authorized [...] Name Priority Date/Time Associated Diagnosis Comme nts SD ARTHCS ASP/INJ Routine 03/01/2019 9:30 AM Bursitis Subacrom ial Results for this MJR JT WO US CDT Left procedure are i n the results section. documented in this encounter Results SD ARTHCS ASP/INJ MJR JT WO US (03/01/2019 9:30 AM CDT) Narrative MMODAL - 03/01/2019 9:30 AM CDT Marv Dodson M.D. ? 03/02/2019 ??7:31 AM Shoulder site - L subacromial bursa : in jection only Date/Time: 03/01/2019 9:09 AM Performed by: Marv Dodson M.D. Authorized [...] in this encounter Visit Diagnoses Diagnosis Bursitis Subacromial Left - Primary documented in this encounter Administered Medications Inactive Administered Medications - up to 3 most recent administrations Medication Order MAR Action Action Date Dose Rate Site bupivacaine PF 0.25 % (2.5 mg/mL) Given 03/01/2019 9:09 AM CDT 4 mL injection 4 mL (MARCAINE) 4 mL, infiltration, One-Time Injection, Starting on Fri03/01/19 at 0909, For 1 dose triamcinolone acetonide injection 40 mg Given 03/01/2019 9:09 AM CDT 40 mg (KENALOG-40) 40 mg, intra-articular, One-Time Injection, Starting on Fri03/01/19 at 0909, For 1 dose documented in this encounter Additional Health Concerns Assessment Noted Time PHQ-9 Depression Total Score: 2 03/08/2015 11:16 AM CS T documented as of this encounter Care Teams Assistant Unit Forester Relationship Specialty Start Date End Date Elsewhere, Pcp PCP - General Internal Medicine 08/17/18 11/09/19 documented as of this encounter
--- OUTSIDE RECORDS SUMMARY | 2021-12-17 09:47 | XMS_ITS | Encounter Summary ---
:1940 Author Organization [facility] Address [address] [place] [address] Care Team Providers Name Role Phone Silver Givens M.D. Primary Care Provider Reason for Referral Physical Therapy (Routine) - Closed Specialty Diagnoses / Procedures Referred By Contact Refer red To Contact Diagnoses Aftercare Total Shoulder Arthroplasty Laine Day P.A.-C. [facility] Procedures PT Evaluate and treat [address] [place] [phone] Referral ID Status Reason Start Date Expiration Date Visits Requ ested Visits Authorized [id number] Closed 01/26/2020 01/25/2021 1 1 Outpatient (Routine) - Closed Specialty Diagnoses / Procedures Referred By Contact Refer red To Contact Orthopedic Surgery Laine Day P.A. -C. [facility] [address] [place] [phone] Referral ID Status Reason Start Date Expiration Date Visits Requ ested Visits Authorized [id number] Closed 01/26/2020 01/25/2021 1 1 Reason for Visit Auth/Cert Specialty Diagnoses / Procedures Referred By Contact Refer red To Contact Diagnoses Primary Osteoarthritis Shoulder Left Aftercare Total Shoulder Arthroplasty Primary Osteoarthritis Shoulder Left [M19.012] Procedures ARTHROPLASTY TOTAL REVERSE SHOULDER- Referral ID Status Reason Start Date Expiration Date Visits Requ ested Visits Authorized [id number] 1 1 Encounter Details Date Type Department Care Team Description 01/25/2020 - Hospital Encounter [facility], Aftercare Total 01/26/2020 [facility], [place] Giulia Fair. [facility], [address] [facility] Arthroplasty Third Floor [place], [place] (Primary Dx) [address] [facility] [address] [place], [place] [phone] (Work) [phone] Social History Tobacco Use Types Packs/Day Years Used Date Smoking Tobacco: Former Smokeless Tobacco: Never Alcohol Use Standard Drinks/Week Comments No 0 (1 standard drink = 0.6 oz pure alcoho l) Sex Assigned at Date Recorded Not on file documented as of this encounter Last Filed Vital Signs Vital Sign Reading Time Taken Comments Blood Pressure 107/58 01/26/2020 10:30 AM CDT Pulse 65 01/26/2020 10:30 AM CDT Temperature 36.5 ??C (97.7 ??F) 01/26/2020 10:30 AM CDT Respiratory Rate 14 01/26/2020 10:30 AM CDT Oxygen Saturation 92% 01/26/2020 10:30 AM CDT ra Inhaled Oxygen Concentration - - Weight 67.2 kg (148 lb 2.4 oz) 01/26/2020 6:02 AM CDT Height 167.6 cm (5' 6) 01/25/2020 4:33 PM CDT Body Mass Index 23.91 01/25/2020 4:33 PM CDT documented in this encounter Discharge Summaries Laine [...] SHOULDER- Marv Dodson M.D.Jensen, Jill C, P.A.-C. [facility] OR DISCHARGE DIAGNOSIS: right Reverse TSA DISCHARGE [...] List Diagnosis ??? Atherosclerotic Heart Disease Of [place] Coronary Artery Without Angina Pectoris ??? Stroke [...] date. Scheduled Appointments 02/09/2020 10:00 AM Laine Day P.A.-C. Orthopedic Surgery For appointment details refer [...] of this encounter Progress Notes Katalina George P.Raj. - 01/26/2020 10:14 AM CDT No PT [...] left total shoulder replacement on 01/25/[address] [place] [address] Dodson for left shoulder arthritis. [...] INTRAOCULAR LENS; Surgeon: Raymundo Muniz M.D.; Location: [facility] OR ??? EXTRACTION CATARACT WITH INSERTION INTRAOCULAR LENS Left 07/21/2017 Procedure: EXTRACTION CATARACT WITH INSERTION INTRAOCULAR LENS; Surgeon: Raymundo Muniz M.D.; Location: [facility] OR ??? 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 Atherosclerotic Heart Disease Of [place] Coronary Artery Without Angina Pectoris ??? Stroke [...] REVERSE SHOULDER-; Surgeon: Marv Dodson M.D.; Location: [facility] OR ??? CARPAL TUNNEL RELEASE N/A 02/24/2007 [...] INTRAOCULAR LENS; Surgeon: Raymundo Muniz M.D.; Location: [facility] OR ??? EXTRACTION CATARACT WITH INSERTION INTRAOCULAR LENS Left 07/21/2017 Procedure: EXTRACTION CATARACT WITH INSERTION INTRAOCULAR LENS; Surgeon: Raymundo Muniz M.D.; Location: [facility] OR ??? MOHS SURGERY N/A 06/23/2006 >Mohs Micrographic Surgery With Layered Closure. ??? 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 Outpatient PT set up for patient Feb 06 in [place] for further shoulder exercises. Education with home [...] Time (min): 65 min Ana Villagomez O.T. [facility], Third Floor [address] [place] [phone] Dept: [phone] Fortunato Davenport M.D. - 01/25/2020 6:33 PM [...] ST Elevation Myocardial Infarction Of Unspecified Site ([facility]) ??? Stroke ([facility]) PAST SURGICAL HISTORY Past Surgical History: Procedure [...] INTRAOCULAR LENS; Surgeon: Raymundo Muniz M.D.; Location: [facility] OR ??? EXTRACTION CATARACT WITH INSERTION INTRAOCULAR LENS Left 07/21/2017 Procedure: EXTRACTION CATARACT WITH INSERTION INTRAOCULAR LENS; Surgeon: Raymundo Muniz M.D.; Location: [facility] OR ??? 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 Moved in to the town of [facility] with his . Quit smoking 15 years [...] List Diagnosis ??? Atherosclerotic Heart Disease Of [place] Coronary Artery Without Angina Pectoris ??? Stroke [...] total shoulder arthroplasty. SURGEON(S) Marv Dodson MD. ROOFING MACHINE TENDER: Laine Day PA-C. I requested Laine to [...] Marv Dodson M.D. CT CT Job ID: [id number] Brief Op Note - Marv Dodson M.D. - 01/25/2020 1:57 PM CDT BRIEF OP NOTE Procedure(s) (LRB): ARTHROPLASTY TOTAL REVERSE SHOULDER- (Left) Surgeon(s) and Role: * Marv Dodson M.D. - Primary * Laine Day P.A.-C. - Health Services Director Anesthesia Type General with pain block Pre-operative Diagnosis Primary Osteoarthritis Shoulder Left Post-operative Diagnosis Primary Osteoarthritis Shoulder Left Findings As expected. Complications None Specimens None Drains None Estimated Blood Loss 60 mL Implants Implant Name Type Inv. Item Serial No. Town Clerk Lot No. [id number] No. Used Action anatomic reverse shoulder screw syssh Shoulder Implant NA [employer] [id number] Left 1 Implanted BSPLT GLND TRB 15 - SNA - [id number] Shoulder Implant BSPLT GLND TRB 15 NA [employer] [id number] [address] FTHRD LCK 4.5X36 - SNA - [id number] Shoulder Implant SCRW PRT ST FTHRD LCK 4.5X36 NA [employer] [id number] Left 1 Implanted COMP GLND TRB 36 - SNA - [id number] Shoulder Implant COMP GLND TRB 36 NA [employer] [id number] Left 1 Implanted humeral stem Shoulder Implant NA [employer] [id number] Left 1 Implanted SHLDR LNR TRB RVRS +0X36 - SNA - [id number] Shoulder Implant SHLDR LNR TRB RVRS +0X36 NA [employer] [id number] Left 1 Implanted Marv Dodson M.D. documented [...] 01/26/20 20 6:21 Venous) CDT AM CDT Fortunato Davenport M.D. LAB BLOOD ADD-ON Performing Organization Address City/State/ZIP Code Phon e Number [facility] [address] [place], [place] [address] [address] [facility] [place] [address] System in [place] Xander Mirza documented in this encounter Visit Diagnoses Diagnosis Primary Osteoarthritis Shoulder Left - P rimary Aftercare Total Shoulder Arthroplasty Atherosclerotic Heart Disease Of [place] Coronary Artery Without Angina Pectoris Stroke Cerebrovascular Accident Personal History Peripheral Vascular Disease (HCC) Hyperlipidemia Hyperglycemia Gastroesophageal Reflux Disease Without Esophagitis documented in this encounter Admitting Diagnoses Diagnosis Primary Osteoarthritis Shoulder Left documented in this encounter Administered Medications Inactive Administered Medications - up to 3 most recent administrations Medication Order MAR Action Action Date Dose Rate Site acetaminophen tablet 1,000 mg Given 01/25/2020 10:42 AM CDT 1,00 0 mg (TYLENOL) 1,000 mg, oral, Once, On Fri01/25/20 at 1030, For 1 dose, Pre-Op, In PreOp holding (PWA) acetaminophen tablet 1,000 mg (TYLENOL) Given 01/26/2020 5:27 AM CDT 1,000 mg 1,000 mg, oral, Every 6 hours, First dose on Fri01/25/20 at 1800 Given 01/26/2020 12:04 AM CDT 1,000 mg Given 01/25/2020 6:31 PM CDT 1,000 mg atorvastatin tablet 80 mg (LIPITOR) Given 01/26/2020 8:40 AM CDT 80 mg 80 mg, oral, Daily, First dose on Fri01/26/20 at 0900 ceFAZolin in dextrose (iso-osm) IVPB 2 New Bag 01/26/2020 5:26 AM CDT 2 g 100 mL/hr g (ANCEF) 2 g, intravenous, at 100 mL/hr, Administer over 30 Minutes, Every 8 hours, First dose on Fri01/25/20 at 2100, For 2 doses, Start within 8 hours of last IV dose. premix bag, Drug Monitoring Program: Pharmacist to adjust medication dosing based on indication and drug clearance factors., Indications: Prophylaxis, surgical New Bag 01/25/2020 9:11 PM CDT 2 g 100 mL/hr lactated ringers Rate/Dose Verify 01/26/2020 5:31 AM [...] holding (PWA) acetaminophen tablet 1,000 mg (TYLENOL) 1830 (Given - Provider: Rhonda Abarca R.N.) 0004 (Given - Provider: Desiree Shepard R.N.)0527 (Given - Provider: Desiree Shepard R.N.) 1,000 mg, oral, Every 6 hours, First dose on Fri01/25/20 at 1800 atorvastatin tablet 80 mg (LIPITOR) 0840 (Given - Provider: Rhonda Abarca R.N.) 80 mg, oral, Daily, First dose on Fri01/26/20 at 0900 ceFAZolin in dextrose (iso-osm) IVPB 2 g (ANCEF) (COMPLETED) 134 (Given - Provider: Neptali Boyce APRN, INSPECTOR AIR CARRIER, R.N.) 2 g (rounded from 1.74 g [...] IV dose. premix bag, Drug Monitoring Program: Phar macist to adjust medication dosing based on indication [...] needed. pantoprazole DR tablet 40 mg (PROTONIX) 839 (Given - Provider: Rhonda Abarca R.N.) 40 mg, oral, Daily, First dose on Fri at 0900, Swallow whole. Do NOT crush, chew, or split tablet. sennosides-docusate sodium 8.6-50 mg per tablet 1 tablet (SE NOKOT-S) 2110 (Given - Provider: Desiree Shepard R.N.) 0840 (Given - Provider: Rhonda Abarca R.N.) 1 tablet, oral, 2 times daily, First dos e on Fri01/25/20 at 2100, Do not give if patient has diarrhea. Continuous Medication Order 01/24/2020 01/25/2020 01/26/2020 lactated ringers (CANCELED) 1118 (New Ba g - Provider: Marv Simmons APRN, INSPECTOR AIR CARRIER)1306 (Anesthesia Volume Adjustment - Provider: Neptali Boyce [...] mg of calcium, oral, Every 2 hour LA N, indigestion, Starting Fri01/25/20 at 1632, Doses [...] documented as of this encounter Care Teams Rug Dyer Relationship Specialty Start Date End Date Silver Givens M.D. PCP - General Family Medicine 11/10/19 12/09/[id number] [place] [phone] documented as of this encounter
--- OUTSIDE RECORDS SUMMARY | 2021-12-17 09:47 | XMS_ITS | Encounter Summary ---
:1940 Author Organization [facility] Address [address] [place] [address] Care Team Providers Name Role Phone Elsewhere, Pcp Primary Care Provider Unavailable Reason for Visit Reason Onset Date Comments cardiac rehab referral 08/17/2018 Encounter Details Date Type Department Care Team Description 08/17/2018 Clinical Department of Greg cardiac rehab Communication Cardiovascular Sophia Soares, referral Medicine in [place], [place] [address] [place] [phone] Social History Tobacco Use Types Packs/Day Years Used Date Smoking Tobacco: Former Smokeless Tobacco: Never Alcohol Use Standard Drinks/Week Comments No 0 (1 standard drink = 0.6 oz pure alcoho l) Sex Assigned at Date Recorded Not on file documented as of this encounter Miscellaneous Notes Telephone Encounter - Sophia Garza, [facility] - 08/17/2018 11:22 AM CDT INFORMATION DISCUSSED Reason for phone call: Referral to cardiac rehab program Liaison spoke with the patient/family to discuss cardiac rehab referral. 1. Participation in a Phase II cardiac rehabilitation program is recommended. Patient was informed about what cardiac rehabilitation has to offer and why it is beneficial. The plan of care for the rehabilitation program consists of risk factor modification, monitored and supervised exercise and assistance in the recovery process with ongoing education and support. Patient will discuss participation in cardiac rehabilitation program with local physician who can provide referral if participation is recommended. 2. Eligibility: [place] and [place] 3. Exceptions/exclusions: None 4. Referral: Patient will consider participating in a cardiac rehabilitation program. Patient was instructed to contact his primary care provider to refer him to cardiac rehab when he is ready. 5. Appropriate information will be sent to the receiving cardiac rehabilitation program as applicable. Recommend that patient check with his/her insurance company to verify coverage of the cost of cardiac rehabilitation program visits. PLAN Disposition/Recommendation: Patient was instructed to speak with his primary care physician about ordering cardiac rehab when he is ready Information: patient/caller able to repeat back in their own words Caller agreeable to plan of care: yes The following references were used: none documented in this encounter Plan of Treatment Not on filedocumented as of this encounter Visit Diagnoses Not on filedocumented in this encounter Additional Health Concerns Assessment Noted Time PHQ-9 Depression Total Score: 2 03/08/2015 11:16 AM CS T documented as of this encounter Care Teams Queen'S Counsel Relationship Specialty Start Date End Date Elsewhere, Pcp PCP - General Internal Medicine 08/17/18 11/09/19 documented as of this encounter
--- OUTSIDE RECORDS SUMMARY | 2021-12-17 09:48 | XMS_ITS | Encounter Summary ---
:1940 Author Organization [facility] Address [address] [place] [address] Care Team Providers Name Role Phone Unavailable Primary Care Provider Unavailable Reason for Visit Reason Comments Nausea Pt presents with nausea, gen eralized weakness and new confusion per family. Encounter Details Date Type Department Care Team Description 08/14/2018 - Emergency [place] Edgar Dodson Non-ST Iraida vation 08/15/2018 Emergency Department Titi Nunez M.D. Myocardial Infarction [address] [place] [address] [address] [facility] ([facility]) (Primary Dx) [place] [id number] [phone] Social History Tobacco Use Types Packs/Day Years Used Date Smoking Tobacco: Former Smokeless Tobacco: Never Alcohol Use Standard Drinks/Week Comments No 0 (1 standard drink = 0.6 oz pure alcoho l) Sex Assigned at Date Recorded Not on file documented as of this encounter Last Filed Vital Signs Vital Sign Reading Time Taken Comments Blood Pressure 124/68 08/15/2018 12:28 AM CDT Pulse 58 08/15/2018 12:28 AM CDT Temperature 36.2 ??C (97.2 ??F) 08/14/2018 9:15 PM CDT Respiratory Rate 16 08/15/2018 12:28 AM CDT Oxygen Saturation 95% 08/15/2018 12:28 AM CDT Inhaled Oxygen Concentration - - Weight 66.1 kg (145 lb 11.6 oz) 08/14/2018 9:13 PM CDT Height - - Body Mass Index 23.42 06/25/2016 8:20 AM [employer]ICAL [employer] documented in this encounter Medications at Time [...] mg DR tablet Take 1 tablet (81 mg 30 tablet 11 08/16/2019 total) by mouth daily. clopidogrel (PLAVIX) 75 Take 1 tablet (75 mg 30 tablet 11 08/16/2019 mg tablet total) by mouth daily. pantoprazole (PROTONIX) Take 1 tablet (40 mg 30 tablet 0 09/15/2018 40 mg EC tablet total) by mouth every morning before breakfast. aspirin 81 mg chewable Chew 81 mg daily. 0 08/16/2018 tablet CALCIUM CARB/VIT Take 1 tablet by 0 01/09/2010 D3/MINERALS mouth daily. (CALCIUM-VITAMIN D ORAL) metFORMIN (GLUCOPHAGE) Take 1-2 tablets by 0 08/05/201301/21/2020 500 mg tablet mouth 2 (two) times a day. metoprolol succinate Take 0.5 tablets by 0 201408/16/2018 (for_TOPROL-XL) 12.5 mg mouth daily. Patient 24 hr tablet confirmed he was taking 0.5 tablet 1xday, however, Rx fill history suggests that it was the tartrate formulation. nitroglycerin Place 1 tablet under 0 06/25/2016 0 11/30/2021 (for_NITROSTAT) 0.4 mg SL the tongue every 5 tablet (five) minutes as needed for chest pain. omeprazole (PriLOSEC) 20 Take 1 capsule by 0 /10/201008/16/[address] capsule mouth daily. documented as of this encounter ED Notes Edgar Dodson Jr., M.D. - 08/14/2018 10:33 PM CDT SUBJECTIVE CHIEF COMPLAINT/REASON FOR VISIT Nausea (Pt presents with nausea, generalized weakness and new confusion per family.) HISTORY OF PRESENT ILLNESS This is a 78 yo man with a history of CAD who presents with memory change, weakness, and nausea. It has been going on for a few days. He denies shortness of breath, cough. On further questioning, he did have some chest pain yesterday for which he took nitroglycerin. REVIEW OF SYSTEMS Constitutional: Positive for fatigue. HENT: Negative. Eyes: Negative. Respiratory: Negative. Cardiovascular: Positive for chest pain. Gastrointestinal: Positive for nausea. Endocrine: Negative. Genitourinary: Negative. Musculoskeletal: Negative. Skin: Negative. Allergic/Immunologic: Negative. Neurological: Negative. Negative for weakness. Hematological: Negative. Psychiatric/Behavioral: Negative. OBJECTIVE Initial Vitals Temperature Pulse Rate Heart Rate Resp Rate Blood Pressure SpO2 08/14/185 08/14/18 2115 08/14/18 2145 08/14/18211408/14/18211408/14/182114 36.2 ??C 70 64 18 (!) 144/94 96 % Pain Score -- PHYSICAL EXAMINATION Constitutional: He appears well-developed and well-nourished. HENT: Head: Normocephalic and atraumatic. Right Ear: Tympanic membrane normal. Left Ear: Tympanic membrane normal. Nose: Nose normal. Mouth/Throat: Oropharynx is clear and moist. Mucous membranes are moist. Dental: Good dentition. Eyes: Conjunctivae and EOM are normal. Pupils are equal, round, and reactive to light. Neck: Normal range of motion. Neck supple. Cardiovascular: Normal rate, regular rhythm, S1 normal, S2 normal and normal heart sounds. Pulses are strong and palpable. Capillary refill: takes less than 3 seconds, Pulmonary/Chest: Effort normal and breath sounds normal. There is normal air entry. Abdominal: Soft. Bowel sounds are normal. Musculoskeletal: Normal range of motion. Neurological: He is alert and oriented to person, place, and time. He has normal reflexes. Skin: Skin is warm, dry, intact and normal color. Psychiatric: He has a normal mood and affect. His behavior is normal. Judgment and thought content normal. ASSESSMENT/PLAN Impression and Plan NSTEMI - discussed with Dr Nash in [place] (cardiology). Will give pt asa 324 mg PO, plavix 300 mg PO and heparin bolus and drip. Cognitive Impairment - no diagnosis but unable to recall any of 3 words here in CF Slightly abnormal LFTs - advise rechecking, consider ruq us if persistenly abnormal, pt without ruq ttp Pt will be transferred by ALS ambulance. Stable at time of transfer. Reviewed and summarized previous medical records including: Lab results, EKG images/reports, Radiology images/report and Documentation from previous visits. with the following comments: see ed course. with the following comments: see ed course. with the following comments: see ed course CPR: No CPR performed ED Course as of Aug 15 0000 FriAug 14, 2018 2357 Cbc nl with slight neutrophilia, trop 222, tsh nl, ptt nl, crp 0.9, total bili 1.7, alk phos 173, ast 54, lipase 31 2359 Cxr negative - my read Ekg - rate 63, nl intervals, no st or t wave changes, nsr, pvc Final Diagnoses: as of Aug 15 0000 Non-ST Elevation Myocardial Infarction (HCC) Edgar Dodson Jr., M.D. 08/15/18 0000 documented in this encounter Plan of Treatment Not on filedocumented as of this encounter Procedures Procedure Name Priority Date/Time Associated Comments Diagnosis URINALYSIS WITH STAT 08/15/2018 12:00 Results for MICROSCOPIC AM CDT this procedure are in the results section. DX CHEST PORTABLE 1 RAD - Routine 08/14/2018 11:17 Res ults for VIEW (most inpatients PM CDT this proced ure and all are in the outpatients) results section. C-REACTIVE PROTEIN STAT 08/14/2018 10:34 Resul ts for (CRP), S/P PM CDT this procedure are in the results section. THYROID FUNCTION STAT 08/14/2018 10:33 Results for CASCADE, S PM CDT this procedure are in the results section. METHYLMALONIC ACID STAT 08/14/2018 10:33 Resul ts for (MMA), WILLAM, S PM CDT this procedur e are in the results section. ACTIVATED PARTIAL STAT 08/14/2018 10:33 Result s for THROMBOPLASTIN TIME PM CDT this pro cedure (APTT), P are in the results section. CBC WITH STAT 08/14/2018 10:33 Results for DIFFERENTIAL, B PM CDT this procedu re are in the results section. TROPONIN T, 5TH GEN, STAT 08/14/2018 10:33 Res ults for P PM CDT this procedure are in the results section. LIPASE, S/P STAT 08/14/2018 10:33 Results for PM CDT this procedure are in the results section. VITAMIN B12 ASSAY, S STAT 08/14/2018 10:33 Res ults for PM CDT this procedure are in the results section. COMPREHENSIVE STAT 08/14/2018 10:33 Results fo r METABOLIC PANEL, S/P PM CDT this pr ocedure are in the results section. CT HEAD WITHOUT IV RAD - Semiurgent 08/14/2018 10:28 R esults for CONTRAST (Fast; most ED PM CDT this procedur e patients; some are in the inpatients) results section. ECG STAT 08/14/2018 10:01 Results for PM CDT this procedure are in the results section. documented in this encounter Results (ABNORMAL) Urinalysis with Microscopic (08/15/2018 12:00 AM CDT) P athologist Signature Source Midstream 08/15/2018 [facility] 12:16 AM [employer] [facility] Clarity Clear Clear 08/15/2018 [facility] 12:16 AM [facility] [email or web address] [facility] Color Yellow 08/15/2018 [facility] 12:16 AM [employer] [facility] Comment: ----REFERENCE VALUE---- Colorless Yellow Isabel Blood Negative Negative 08/15/2018 12:16 AM [place] [employer] [facility] Nitrite Negative Negative 08/15/2018 12:16 AM [place] [employer] [facility] Leukocyte Esterase Moderate (A) Negative 08/15/2018 12:1 6 AM [facility] [employer] [facility] Protein 30 (A) mg/dL 08/15/2018 12:16 AM [facility] [employer] [facility] [employer] [facility] Comment: ----REFERENCE VALUE---- Negative Trace Glucose Negative Negative mg/dL 08/15/2018 12:16 AM [facility] Ketones, QI(U) 15 (A) Negative mg/dL 08/15/2018 12:16 AM [facility] Bilirubin Negative Negative 08/15/2018 12:16 AM [facility] pH 6.0 5.0 - 8.0 08/15/2018 12:17 AM [facility] Specific [place] 1.020 1.001 - 1.035 08/15/2018 12:17 AM [facility] Urobilinogen 0.2 0.2 - 1.0 mg/dL 08/15/2018 12:17 AM [facility] White Blood Cells 21-30 (A) /hpf 08/15/2018 12:55 AM [facility] Comment: ----REFERENCE VALUE---- Males: 0-3 Females: 0-10 Unknown: 0-10 Red Blood Cells 3-10 (A) 0 - 2 /hpf 08/15/2018 12:55 [facility] [employer] [facility] Dysmorphic Red Blood <=25 <=25 % 08/15/2018 12:55 [facility] Cells [facility] Hyaline Casts 1-3 /lpf 08/15/2018 12:55 [place] [facility] Crystals Amorphous (A) None Seen 08/15/2018 12:55 [place] [facility] /lpf [facility] Squamous Cells Occ-3 /hpf 08/15/2018 12:55 [place] [facility] [employer] [facility] Transitional Cells Occ-3 (A) None Seen 08/15/2018 12:55 [facility] Specimen (Source) Anatomical Collection Method Collection Time Re ceived Time Location / / Volume Laterality Urine (Urine, 08/15/2018 08/15/2018 12: 13 Clean Catch) [facility] Edgar Dodson Jr., M.D. LAB URINE ORDERABLES Performing Organization Address City/State/ZIP Code Phon e Number [facility]- [id number] [place] [id number] [facility] DX Chest Portable 1 View (08/14/2018 11:17 PM CDT) Anatomical Region Laterality Modality Chest, Thoracic RST LOS, Thoracic ARZ LOS, Thoracic N/A Digital Radiography FLA LOS Specimen (Source) Anatomical Collection Method Collection Time Re ceived Time Location / / Volume Laterality 08/15/2018 9:46 AM CDT Impressions 08/15/2018 9:47 AM CDT IMPRESSION: Trace right pleural effusion or thickening. Remainder unchanged from 04/01/2017. No focal consolidation. Hear t size and pulmonary vascularity within normal limits. Aortic calcification. Rig ht shoulder arthroplasty. Old left rib fracture. Narrative 08/15/2018 9:47 AM CDT EXAM: DX CHEST PORTABLE 1 VIEW Procedure Note Lavern Lang M.D. - 08/15/2018Form atting of this note might be different from the original. EXAM: DX CHEST PORTABLE 1 VIEW IMPRESSION: Trace right pleural effusion or thickening. Remainder unchanged from 04/01/2017. No focal consolidation. Hear t size and pulmonary vascularity within normal limits. Aortic calcification. Rig ht shoulder arthroplasty. Old left rib fracture. Edgar Dodson Jr., M.D. IMG DIAGNOSTIC IMAGING P [facility] CRP (C-Reactive Protein) (08/14/2018 10:34 PM CDT) athologist Signature C-Reactive 0.9 <=8.0 mg/L 08/14/2018 [facility] Protein (CRP), 11:05 PM CDT [facility] Specimen Anatomical Collection Method Collection Time Receive d Time (Source) Location / / Volume Laterality Blood (Blood, 08/14/2018 10:34 08/14/2018 Venous) PM CDT 10:37 PM CDT Edgar Dodson Jr., M.D. LAB BLOOD ADD-ON Performing Organization Address City/State/ZIP Code Phon e Number [facility]- [address] [place] [address] [place] [address] [facility] APTT (Activated Partial Thromboplastin Time) (08/14/2018 10:33 PM CDT) athologist Signature APTT, P 27.4 23.7 - 36.1 08/14/2018 [facility] sec 11:54 PM CDT [facility] Specimen Anatomical Collection Method Collection Time Receive d Time (Source) Location / / Volume Laterality Blood (Blood, 08/14/2018 10:33 08/14/2018 Venous) PM CDT 11:45 PM CDT Edgar Dodson Jr., M.D. LAB BLOOD ADD-ON Performing Organization Address [facility] Phon e Number [address] [address] [facility] Lipase (08/14/2018 10:33 PM CDT) athologist Signature Lipase, P 31 13 - 60 U/L 08/14/2018 [facility] 11:04 PM CDT [facility] Specimen Anatomical Collection Method Collection Time Receive d Time (Source) Location / / Volume Laterality Blood (Blood, 08/14/2018 10:33 08/14/2018 Venous) PM CDT 10:37 PM CDT Edgar Dodson Jr., M.D. LAB BLOOD ADD-ON Performing Organization Address [facility] Phon e Number [address] [address] [facility] Methylmalonic Acid (MMA), Quantitative (08/14/2018 10:33 PM CDT) [facility] gist Method Time Signature Methylmalonic 0.19 <=0.40 08/18/2018 [facility] Acid, QN, S nmol/mL 8:13 AM CDT [facility] Comment: ----ADDITIONAL INFORMATION---- This test was developed and its performa nce characteristics determined by [facility] in a manner consistent with CLIA requirements. This test has not been cleared or approved by the [place] d and Drug Administration. Specimen Anatomical Collection Method Collection Time Receive d Time (Source) Location / / Volume Laterality Blood (Blood, 08/14/2018 10:33 08/16/2018 Venous) PM CDT 11:50 AM CDT Edgar Dodson Jr., M.D. LAB BLOOD ADD-ON Performing Organization Address [facility]/State/ZIP Code Phon e Number [facility]IES - [address] [place], [place] [address] [facility] Vitamin B12 Assay (08/14/2018 10:33 PM CDT) athologist Signature Vitamin B12 [phone] 08/15/2018 [facility] Assay, S ng/L 2:49 PM CDT [facility] Comment: Biotin has been identified by the [place] as a potential interfering substance. ??Higher concentr ations of biotin may be found in multivitamins, hair/nail supple ments, and workout supplements. ??If the result does not ma tc clinical observations, repeat testing after patient refrains fr om the use of supplements for at least 12 hours. Specimen Anatomical Collection Method Collection Time Receive d Time (Source) Location / / Volume Laterality Blood (Blood, 08/14/2018 10:33 08/15/2018 2:07 Venous) PM CDT PM CDT Edgar Dodson Jr., M.D. LAB BLOOD ADD-ON Performing Organization Address City/[facility] Code Phon e Number [facility]- [address] [facility] [address] [facility] (ABNORMAL) Troponin T, 5th Generation (08/14/2018 10:33 PM CDT) athologist Signature Troponin T, 222 (H) <=15 ng/L 08/14/2018 [facility] 5th gen 10:56 PM CDT [facility] [employer] [facility] Comment: Consider acute myocardial injury Biotin has been identified by the [place] as a potential interfering substance. ??Higher concentr ations of biotin may be found in multivitamins, hair/nail supple ments, and workout supplements. ??If the result does not ma tc clinical observations, repeat testing after patient refrains fr om the use of supplements for at least 12 hours. Specimen Anatomical Collection Method Collection Time Receive d Time (Source) Location / / Volume Laterality Blood (Blood, 08/14/2018 10:33 08/14/2018 Venous) PM CDT 10:37 PM CDT Edgar Dodson Jr., M.D. LAB BLOOD ADD-ON Performing Organization Address City/State/ZIP Code Phon e Number [address] [address] [facility] Thyroid Function [place] (08/14/2018 10:33 PM CDT) athologist Signature TSH, Sensitive 1.9 0.3 - 4.2 08/14/2018 [facility] mIU/L 11:07 PM CDT [facility] Comment: Biotin has been identified by the [place] as a potential interfering substance. ??Higher concentr ations of biotin may be found in multivitamins, hair/nail supple ments, and workout supplements. ??If the result does not ma h clinical observations, repeat testing after patient refrains fr om the use of supplements for at least 12 hours. Specimen Anatomical Collection Method Collection Time Receive d Time (Source) Location / / Volume Laterality Blood (Blood, 08/14/2018 10:33 08/14/2018 Venous) PM CDT 10:37 PM CDT Edgar Dodson Jr., M.D. LAB BLOOD ADD-ON Performing Organization Address City/State/[facility] Code Phon e Number [address] [address] [facility] (ABNORMAL) Comprehensive Metabolic Panel (08/14/2018 10:33 PM CDT) athologist Signature Potassium, P 4.1 3.6 - 5.2 08/14/2018 [facility] mmol/L 11:04 PM CDT [facility] Sodium, P 139 135 - 145 08/14/2018 [facility] mmol/L 11:04 PM CDT [facility] Chloride, P 98 98 - 107 08/14/2018 [facility] mmol/L 11:04 PM CDT [facility] Bicarbonate, P 26 22 - 29 08/14/2018 [facility] mmol/L 11:04 PM CDT [facility] Anion Gap, P 15 7 - 15 08/14/2018 [facility] 11:04 PM CDT [facility] BUN (Blood Urea 15 8 - 24 08/14/2018 [facility] Nitrogen), P mg/dL 11:04 PM CDT [facility] Creatinine, P 1.07 0.74 - 08/14/2018 [facility] 1.35 mg/dL 11:04 PM [facility] eGFR-Black/Afri 77 >=60 08/14/2018 [facility] can Kazakh mL/min/BSA 11:04 [facility] Comment: ----ADDITIONAL INFORMATION---- Estimated GFR calculated using the 2009 CKD_EPI creatinine equation. eGFR Non-Black/ 67 >=60 mL/min/BSA 08/14/2018 11:[address] [facility] Kazakh [facility] Comment: ----ADDITIONAL INFORMATION---- Estimated GFR calculated using the 2009 CKD_EPI creatinine equation. Calcium, Total, P 10.2 8.8 - 10.2 08/14/2018 11:04 PM [facility] mg/dL [facility] Glucose, P 120 70 - 140 mg/dL 08/14/2018 11:04 PM [facility] Protein, Total, P 8.0 (H) 6.3 - 7.9 g/dL 08/14/2018 11:04 PM [facility] Albumin, P 4.9 3.5 - 5.0 g/dL 08/14/2018 11:04 PM [facility] Aspartate 54 (H) 8 - 48 U/L 08/14/2018 11:[address] [facility] IC Aminotransferase (AST), P [facility] Alkaline Phosphatase, P 173 (H) 40 - 129 U/L 08/14/2018 11 :04 PM [facility] Alanine Aminotransferase 29 7 - 55 U/L 08/14/2018 11: [address] [facility] (ALT), P [facility] Bilirubin, Total, P 1.7 (H) <=1.2 mg/dL 08/14/2018 11:04 P M [facility] Specimen Anatomical Collection Method Collection Time Receive d Time (Source) Location / / Volume Laterality Blood (Blood, 08/14/2018 10:33 08/14/2018 Venous) PM CDT 10:37 PM CDT Edgar Dodson Jr., M.D. LAB BLOOD ADD-ON Performing Organization Address City/State/ZIP Code Phon e Number [facility]- [id number] [place] [id number] [facility] (ABNORMAL) CBC with Differential, Blood (08/14/2018 10:33 PM CDT) [facility] Method Time Signature Hemoglobin 15.8 13.2 - 08/14/2018 [facility] 16.6 g/dL 10:43 PM CDT [facility] Hematocrit 46.1 38.3 - 08/14/2018 [facility] 48.6 % 10:43 PM CDT [facility] Erythrocytes 5.19 4.35 - 08/14/2018 [facility] 5.65 10:43 PM CDT HEALTH x10(12)/L [facility] MCV 88.8 78.2 - 08/14/2018 [facility] 97.9 fL 10:43 PM CDT [facility] RBC Distrib Width 13.8 11.8 - 08/14/2018 [facility] 14.5 % 10:43 PM CDT [facility] Platelet Count 218 135 - 317 08/14/2018 [facility] x10(9)/L 10:43 PM CDT [facility] Leukocytes 8.6 3.4 - 9.6 08/14/2018 [facility] x10(9)/L 10:43 PM CDT [facility] Neutrophils 7.44 (H) 1.56 - 08/14/2018 [facility] 6.45 10:43 PM CDT HEALTH x10(9)/L [facility] Lymphocytes 0.88 (L) 0.95 - 08/14/2018 [facility] 3.07 10:43 PM CDT HEALTH x10(9)/L [facility] Monocytes 0.21 (L) 0.26 - 08/14/2018 [facility] 0.81 10:43 PM CDT HEALTH x10(9)/L [facility] Eosinophils 0.02 (L) 0.03 - 08/14/2018 [facility] 0.48 10:43 PM CDT HEALTH x10(9)/L [facility] Basophils 0.01 0.01 - 08/14/2018 [facility] 0.08 10:43 PM CDT HEALTH x10(9)/L [facility] [employer] [facility] Specimen Anatomical Collection Method Collection Time Receive d Time (Source) Location / / Volume Laterality Blood (Blood, 08/14/2018 10:33 08/14/2018 Venous) PM CDT 10:37 PM CDT Edgar Dodson Jr., M.D. LAB BLOOD ADD-ON Performing Organization Address City/State/ZIP Code Phon e Number [facility]- [address] [facility] [address] [place] [address] [facility] [address] Head without IV Contrast (08/14/2018 10:28 PM CDT) Anatomical Region Laterality Modality Head, Neuroradiology RST LOS, Neuroradiology ARZ LOS, N/A Computed Tomography Neuroradiology FLA LOS Specimen (Source) Anatomical Collection Method Collection Time Re ceived Time Location / / Volume Laterality 08/15/2018 9:21 AM CDT Impressions 08/15/2018 9:25 AM CDT IMPRESSION: No acute intracranial findings. Narrative 08/15/2018 9:25 AM CDT EXAM: CT HEAD WITHOUT IV CONTRAST COMPARISON: 08/18/1999 FINDINGS: No intracranial hemorrhage, ma ss effect, or CT evidence for acute infarct. Bilateral basal ganglia calcifi cation. Mild diffuse cerebral volume loss. Moderate leukoaraiosis. Intracrani al vascular calcification. Basal cisterns are patent. Postoperative christopher es both globes. No fracture. Mild mucosal thickening maxillary sinuses and ethmoid air cells. Mastoid air cells are well aerated. Degenerative change natanael th temporomandibular joints. vRad: ??Findings concordant with kiet Benson report. Procedure Note Lavern Lang M.D. - 08/15/2018Form atting of this note might be different from the original. EXAM: CT HEAD WITHOUT IV CONTRAST COMPARISON: 08/18/1999 FINDINGS: No intracranial hemorrhage, ma ss effect, or CT evidence for acute infarct. Bilateral basal ganglia calcifi cation. Mild diffuse cerebral volume loss. Moderate leukoaraiosis. Intracrani al vascular calcification. Basal cisterns are patent. Postoperative christopher es both globes. No fracture. Mild mucosal thickening maxillary sinuses and ethmoid air cells. Mastoid air cells are well aerated. Degenerative change natanael th temporomandibular joints. vRad: Findings concordant with prelimina ry vRad report. IMPRESSION: No acute intracranial findings. Edgar Dodson Jr., M.D. IMG CT PROCEDURES ECG 12 Lead (STAT) (08/14/2018 10:01 PM CDT) P athologist Signature Ventricular Rate 63 BPM MUSE ECG/Min [place] Interval 174 ms MUSE QRSD Interval 84 ms MUSE QT Interval 438 ms MUSE QTC Interval 448 ms MUSE P Strawn 47 degrees MUSE R Strawn -2 degrees MUSE T Wave Strawn 54 degrees MUSE Specimen Anatomical Collection Method Collection Time Receive d Time (Source) Location / / Volume Laterality 08/14/2018 10:01 08/14/2018 PM CDT 10:08 PM CDT Impressions MUSE - 08/14/2018 10:08 PM CDT Normal sinus rhythm Premature ventricular complexes Otherwise normal ECG When compared with ECG of 03-JUL-2018 20 :55, No significant change in data has occurr ed Narrative This result has an attachment that is no t available. Procedure Note Jax Arce M.D. - 08/14/2018Formatt ing of this note might be different from the original. IMPRESSION: Normal sinus rhythm Premature ventricular complexes Otherwise normal ECG When compared with ECG of 03-JUL-2018 20 :55, No significant change in data has occurr ed Edgar Dodson Jr., M.D. ECG ORDERABLES Performing Organization Address City/State/ZIP Code Phon e Number MUSE MUSE NA documented in this encounter Visit Diagnoses Diagnosis Non-ST Elevation Myocardial Infarction ( HCC) - Primary documented in this encounter Administered Medications Inactive Administered Medications - up to 3 most recent administrations Medication Order MAR Action Action Date Dose Rate Site aspirin 81 mg chewable tablet - ADS Over ride Pull Starting on Fri08/14/18 at 2314, For 1 dose, Created b y cabinet override aspirin chewable tablet 324 mg Given 08/14/2018 11:16 PM CDT 324 mg 324 mg, oral, Once, On Fri08/14/18 at 2315, For 1 dose clopidogrel tablet 300 mg (PLAVIX) Given 08/14/2018 11:32 PM CDT 300 mg 300 mg, oral, Once, On Fri08/14/18 at 2328, For 1 dose heparin (porcine) 1,000 unit/mL injectio n 2,000 Units 2,000 Units (rounded from 1,983 Units = 30 Units/kg ? 66.1 kg Dosing weight), intravenous, As needed, hepari n antiXa level 0.1-0.19, Starting on Fri08/14/18 at 2320, Intensi ty type: Moderate, antiXa level: 0.1-0.19: IV push loading dose 30 units/kg; Continue infusion; I ncrease IV rate 2 units/kg/hour; Repeat antiXa: 6 hours heparin (porcine) 1,000 unit/mL Given 08/14/2018 11:25 PM CDT 4, 000 Units injection 4,000 Units 4,000 Units (rounded from 3,966 Units = 60 Units/kg ? 66.1 kg Dosing weight), intravenous, Once, On Fri08/14/18 at 2322, For 1 dose, Initial Loading Dose, Intensity type: Moderate heparin (porcine) 1,000 unit/mL injectio n 4,000 Units 4,000 Units (rounded from 3,966 Units = 60 Units/kg ? 66.1 kg Dosing weight), intravenous, As needed, hepari n antiXa less than 0.1, Starting on Fri08/14/18 at 2320, Intensi ty type: Moderate, antiXa level: Less than 0.1: IV push loading dose 60 units/kg; Continue infusi on; Increase IV rate 4 units/kg/hour; Repeat antiXa: 6 hours heparin (porcine) 100 New Bag 08/14/2018 11:27 PM 12 Units/kg/hr 7 .93 mL/hr Units/mL in D5W 250 mL CDT infusion 0-40 Units/kg/hr ? 66.1 kg Dosing weight (0-26.44 mL/hr), intravenous, Continuous, Starting on Fri08/14/18 at 2322, Premix ba,000 Units in 250 mL, Intensity [...] Repeat antiXa: 6 hours after Heparin resumed ondansetron (PF) injection 4 mg (ZOFRAN) Given 08/14/2018 10:42 PM CDT 4 mg 4 mg, intravenous, Once, On Fri08/14/18 at 2239, For 1 dose documented in this encounter Active and Recently Administered Medications Times are shown in CDT. Scheduled Medication Order 08/13/2018 08/14/2018 08/15/2018 aspirin chewable tablet 324 mg (COMPLETED) 231 (Given - Provider: Jasvir Dotson) 324 mg, oral, Once, On Fri08/14/18 at 2315, For 1 dose clopidogrel tablet 300 mg (PLAVIX) (COMPLETED) 233 (Given - Provider: Katia Virk RSelvin) 300 mg, oral, Once, On Fri08/14/18 at 2328, For 1 dose heparin (porcine) 1,000 unit/mL injectio n 4,000 Units (COMPLETED)(Linked Group 1) 2325 (Given - Provider: Katia Virk R.N.) 4,000 Units (rounded from 3,966 Units = 60 Units/kg ? 66.1 kg Dosing weight), intravenous, Once, On Fri08/14/18 at 2322, For 1 dose, Initial Loading Dose, Intensity type: Moderate ondansetron (PF) injection 4 mg (ZOFRAN) (COMPLETED) 2241 (Given - Provider: Jasvir Dotson) 4 mg, intravenous, Once, On Fri08/14/18 at 2239, For 1 dose Continuous Medication Order 08/13/2018 08/14/2018 08/15/2018 heparin (porcine) 100 Units/mL in D5W 250 mL infusion(Linked Group 1) 2327 (New Bag - Provider: Katia Virk R.N. - Comment: [id number]) 0-40 Units/kg/hr ? 66.1 kg Dosing weight (0-26.44 mL/hr), intravenous, Continuous, Starting on Fri08/14/18 at 2322, Premix ba,000 Units in 250 mL, Intensity [...] aft er Heparin resumed PRN Medication Order 08/13/2018 08/14/2018 08/15/2018 heparin (porcine) 1,000 unit/mL injection 2,000 Units(Linked Luc up 1) 2,000 Units (rounded from 1,983 Units = 30 Units/kg ? 66.1 kg Dosing weight), intravenous, As needed, heparin antiXa level 0.1-0.19, Starting on Fri08/14/18 at 2320, Intensity type: Moderate, antiXa le rosalba: 0.1-0.19: IV push loading dose 30 u nits/kg; Continue infusion; Increase IV rate 2 units/kg/hour; Repeat antiXa: 6 hours heparin (porcine) 1,000 unit/mL injection 4,000 Units(Linked Luc up 1) 4,000 Units (rounded from 3,966 Units = 60 Units/kg ? 66.1 kg Dosing weight), intravenous, As needed, heparin antiXa less than 0.1, Starting on Fri08/14/18 at 2320, Intensity type: Moderate, antiXa lev el: Less than 0.1: IV push loading dose 60 units/kg; Continue infusion; Increase IV rate 4 units/kg/hour; Repeat antiXa: 6 hours Linked Groups Order Group 1: heparin (porcine) 1,000 unit/mL injection 4,000 Units (COMPLETED)Jump to med 4,000 Units (rounded from 3,966 Units = 60 Units/kg ? 66.1 kg Dosing weight), intravenous, Once, On Fri08/14/18 at 2322, For 1 dose
Initial Loading Dose
Intensity type: Moderate And heparin (porcine) 1,000 unit/mL injection 4,000 UnitsJump to med 4,000 Units (rounded from 3,966 Units = 60 Units/kg ? 66.1 kg Dosing weight), intravenous, As needed, heparin antiXa less than 0.1, Starting on Fri08/14/18 at 2320
Intensity type: Moderate< br>antiXa level: Less than 0.1: IV push loading dose 60 units/kg; Continue infusion; Increase IV rate 4 units/kg/hour; Repeat antiXa: 6 hours And heparin (porcine) 1,000 unit/mL injection 2,000 UnitsJump to med 2,000 Units (rounded from 1,983 Units = 30 Units/kg ? 66.1 kg Dosing weight), intravenous, As needed, heparin antiXa level 0.1-0.19, Starting on Fri08/14/18 at 2320
Intensity type: Moderate&lt ;br>antiXa level: 0.1-0.19: IV push load ing dose 30 units/kg; Continue infusion; Increase IV rate 2 units/kg/hour; Repeat antiXa: 6 hours And heparin (porcine) 100 Units/mL in D5W 250 mL infusionJump to med 0-40 Units/kg/hr ? 66.1 kg Dosing weight (0-26.44 mL/hr), intravenous, Continuous, Starting on Fri08/14/18 at 2322
Premix ba,000 Units in 250 mL
Intensity type: Moderate<br&gt ;Start infusion at: 12 units/kg/hr
an tiXa level: Less than 0.1: IV push loading dose 60 units/kg; Continue infusion; Increase IV rate 4 units/kg/hour; Repeat antiXa: 6 hours
antiXa lev el: 0.1-0.19: IV push loading dose 30 un its/kg; Continue infusion; Increase IV rate 2 units/kg/hour; Repeat antiXa: 6 hours
antiXa level: 0.2-0.5: No loading dose; Continue infusion; No change in IV rate; Repeat antiXa: 1st level, re check at 6 hours then 2nd check and beyond, Next a.m.
antiXa level: 0.51-0.6: No loading dose; Continue infusion; Decrease IV rate 1 unit/kg/hour; Repeat antiXa: 6 hours after rate change
an tiXa level: 0.61-0.9: No loading dose; Stop infusion for 1 hour; Decrease IV rate 2 units/kg/hour; Repeat antiXa: 6 hours after Heparin resumed
ant iXa level: 0.91 or greater: No loading d ose; Stop infusion for 2 hours; Decrease IV rate 4 units/kg/hour; Repeat antiXa: 6 hours after Heparin resumed documented in this encounter Additional Health Concerns Assessment Noted Time PHQ-9 Depression Total Score: 2 03/08/2015 11:16 AM CS T documented as of this encounter
--- OUTSIDE RECORDS SUMMARY | 2021-12-17 09:48 | XMS_ITS | Encounter Summary ---
:1940 Author Organization [facility] Address [address] [place] [address] Care Team Providers Name Role Phone Unavailable Primary Care Provider Unavailable Encounter Details Date Type Department Care Team Description 08/13/2018 Hospital Encounter Department of Laila L[facility] [place] [address] [facility] [address] [place] [address] [address] [address] [place], [place] [phone] [id number] (Work) [phone] Social History Tobacco Use Types Packs/Day Years [...] 0 01/27/2017 (for_LIPITOR) 80 mg daily. tablet ZETIA 10 mg tablet Take 10 mg by mouth 0 01/09/20 17 daily. aspirin 0.1 mg capsule aspirin 81 mg oral 0 07/3108/15/2018 tablet See Instructions, Take by mouth daily. CALCIUM CARB/VIT Take 1 tablet by 0 01/09/2010 D3/MINERALS mouth daily. (CALCIUM-VITAMIN D ORAL) metFORMIN (GLUCOPHAGE) Take 1-2 tablets by 0 08/0 05/2013 2020 500 mg tablet mouth 2 (two) times a day. metoprolol succinate Take 0.5 tablets by 0 201408/16/2018 (for_TOPROL-XL) 12.5 mg mouth daily. Patient 24 hr tablet confirmed he was taking 0.5 tablet 1xday, however, Rx fill history suggests that it was the tartrate formulation. metoprolol tartrate 0 06/23/201708/15 (for_LOPRESSOR) 25 mg tablet qnxyszrbquxj-ieidkktk-blr Take 1 tablet by 0 06/0608/15/2018 ifrah gluconate mouth daily. (MULTIVITAMIN WITH MINERALS) 9 mg iron/[address] 1 tablet under 0 06/25/2016 0 11/30/2021 (for_NITROSTAT) 0.4 mg SL the tongue every 5 tablet (five) minutes as needed for chest pain. omeprazole (for_PriLOSEC) 0 01/27/2017 08/15/2018 20 mg capsule omeprazole (PriLOSEC) 20 Take 1 capsule by 0 09/0308/16/[address] capsule mouth daily. documented as of this encounter Plan of Treatment Not on filedocumented as of this encounter Procedures Procedure Name Priority Date/Time Associated Comments Diagnosis MR SHOULDER LEFT RAD - Routine 08/13/2018 10:50 Pain Shoulder Resul ts for this WITHOUT IV (most inpatients AM CDT Left procedure a re in CONTRAST and all the results outpatients) section. documented in this encounter Results MR Shoulder Left without IV Contrast (08/13/2018 10:50 AM CDT) Anatomical Region Laterality Modality Upper Extremity, Shoulder, Musculoskeletal RST LOS, Left Magnetic Resonance Musculoskeletal ARZ LOS, Muskuloskeletal FLA LOS Specimen (Source) Anatomical Collection Method Collection Time Re ceived Time Location / / Volume Laterality 08/13/2018 10:58 AM CDT Impressions 08/13/2018 12:45 PM CDT IMPRESSION: 1. Motion artifact degrades image qualit y. 2. 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 3. Partial thickness tearing of the infr aspinatus and subscapularis. 4. Moderate arthropathy of the acromiocl avicular joint with subacromial spurring. 5. Additional, non-emergent findings dis cussed in the findings section of the report. Narrative 08/13/2018 12:45 PM CDT EXAM: MR SHOULDER LEFT WITHOUT IV CONTRAST COMPARISON: 08/12/2011 radiographs FINDINGS: Motion artifact degrades image quality. Full-thickness, complete tear of the sup raspinatus tendon with 4-5 cm of tendon retraction and muscular atrophy. Motion artifact degrades detailed evalua tion of the infraspinatus tendon. Abnormal morphology of the infraspinatus tendon, with abnormal increased signal compatible with moderate partial-thickne ss tearing. Cannot exclude areas of full-thickness tearing, especially invol ving the anterior fibers. Normal teres minor. Subscapularis tendinosis with partial-th ickness tearing of the superior fibers no tendon retraction. Moderate degenerative hypertrophic christopher es of the acromioclavicular joint with subacromial spurring. Artifact degrades detailed evaluation of portions of the bicipital tendon. Fluid surrounds the extra-articular long head of the biceps tendon, which may represent tenosynovitis versus extension of joint fluid. Suspect partial-thickness tearing of the extra a nd intra-articular bicipital tendons no bicipital tendon retraction. High riding humeral head. Small glenohum eral joint effusion and synovitis. Partial-thickness glenohumeral chondroma lacia. Global degenerative irregularity and blunting of the labrum. Procedure Note Adolfo Castillo M.D. - 08/13/2018Formatt ing of this note might be different from the original. EXAM: MR SHOULDER LEFT WITHOUT IV CONTRA ST COMPARISON: 08/12/2011 radiographs FINDINGS: Motion artifact degrades image quality. Full-thickness, complete tear of the sup raspinatus tendon with 4-5 cm of tendon retraction and muscular atrophy. Motion artifact degrades detailed evalua tion of the infraspinatus tendon. Abnormal morphology of the infraspinatus tendon, with abnormal increased signal compatible with moderate partial-thickne ss tearing. Cannot exclude areas of full-thickness tearing, especially invol ving the anterior fibers. Normal teres minor. Subscapularis tendinosis with partial-th ickness tearing of the superior fibers no tendon retraction. Moderate degenerative hypertrophic christopher es of the acromioclavicular joint with subacromial spurring. Artifact degrades detailed evaluation of portions of the bicipital tendon. Fluid surrounds the extra-articular long head of the biceps tendon, which may represent tenosynovitis versus extension of joint fluid. Suspect partial-thickness tearing of the extra a nd intra-articular bicipital tendons no bicipital tendon retraction. High riding humeral head. Small glenohum eral joint effusion and synovitis. Partial-thickness glenohumeral chondroma lacia. Global degenerative irregularity and blunting of the labrum. IMPRESSION: 1. Motion artifact degrades image qualit y. 2. 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 3. Partial thickness tearing of the infr aspinatus and subscapularis. 4. Moderate arthropathy of the acromiocl avicular joint with subacromial spurring. 5. Additional, non-emergent findings dis cussed in the findings section of the report. Laila NOBLES MRI PROCEDURES documented in this encounter Visit Diagnoses Diagnosis Pain Shoulder Left documented in this encounter Additional Health Concerns Assessment Noted Time PHQ-9 Depression Total Score: 2 03/08/2015 11:16 AM JENNA T documented as of this encounter
--- OUTSIDE RECORDS SUMMARY | 2021-12-17 09:48 | XMS_ITS | Encounter Summary ---
:1940 Author Organization [facility] Address [address] [place] [address] Care Team Providers Name Role Phone Unavailable Primary Care Provider Unavailable Encounter Details Date Type Department Care Team Description 07/21/2017 Anesthesia Event [facility] MAIN OR Cr Britt, ED, TIRE DESIGN ENGINEER [id number] Jax Stoner, ED, TIRE DESIGN ENGINEER, [place] [address] Anesthesia Record Procedure Summary Procedure Name Responsible Anesthesia Start Anesthesia Stop Anesthesiologist Time Time EXTRACTION CATARACT Cr Britt APRN, 07/21/17 0901 0 07/21/17 0926 WITH INSERTION TIRE DESIGN ENGINEER INTRAOCULAR LENS (Left) Events Date Time Event Comment 07/21/2017 0752 0901 An Start Machine/Equipmen t Checked Infection Precautions Foll owed Procedure/Site Verified NPO Sta tus Verified Supine Standard ASA Mon itors Applied 0901 In Room 0903 Turnover to Proceduralist 0910 Proc Start 0920 Proc Fin 0921 Turnover to ANE Staff 0921 an stop data 0924 Out of Room 0926 An End I completed my h andoff to the receiving staff during [facility] we 1. Identified the patient 2. Ident ified the responsible provider 3. Revi ewed the pertinent medical history 4. Discu ssed the surgical course 5. Reviewed intra-o p anesthesia management and issues during an esthesia 6. Set expectations for post-procedure period 7. Allowed opportun ity for questions and acknowledgement of understanding. Name Total midazolam PF injection 1 mg/mL 1 mg fentanyl injection 50 mcg/mL 50 mcg ondansetron PF 4 mg/2 mL injection 4 mg Agents No agents on file. Blood No blood administrations on file. Lines, Drains, and Airways Type Details Placement Removal Peripheral IV Placement Date: 07/21/17; 07/21/17 0000 by 07/21 0934 by Catheter Size: 22 G; Rose Bradford, Vickie Bradford, Orientation: Left; R.N. R.N. Location: Hand; Site Prep: Chlorhexidine (Preferred); Inserted by: Shira Mckeon; Insertion Attempts: 1; Removal Date: 07/21/17; Removal Time: 933 (RETIRED) Incision 07/21/17; 855; Eye; 07/21/17 0856 by 0 1020 by Left; No dressing ; Katrina Castillo Mancilman, [place], 01/26/20; 1020 R.N. R.N. documented in this encounter Social History Tobacco Use Types Packs/Day Years Used Date Smoking Tobacco: Unknown Smokeless Tobacco: Never Alcohol Use Standard Drinks/Week Comments No 0 (1 standard drink = 0.6 oz pure alcoho l) Sex Assigned at Date Recorded Not on file documented as of this encounter OR Notes Anesthesia Postprocedure Evaluation - Cr Britt APRN, CRNA - 07/21/2017 9:33 AM CDT Patient: Obey Vines Procedure Summary Date: 07/21/17 Room / Location: [address] 2-[address] / [facility] OR Anesthesia Start: 900 Anesthesia Stop: 925 Procedure: EXTRACTION CATARACT WITH INSERTION INTRAOCULAR LENS (Left ) 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 Responsible Provider: Cr Britt APRN, CRNA Anesthesia Type: MAC ASA Status: 2 Anesthesia Type: MAC Last vitals BP 100/68 (07/21/17925) Temp 36.5 ??C (07/21/17925) Pulse 62 (07/21/17925) Resp 16 (07/21/17925) SpO2 93 % (07/21/17925) Anesthesia Post Evaluation 07/21/2017 9:33 AM Patient Disposition: dismissal Cardiovascular status: hemodynamics (HR & BP) acceptable Respiratory status: patent airway with spontaneous effort Temperature: normothermic Oxygen requirements: room air Level of consciousness: awake Pain score: pain adequately controlled and/or at baseline Post Op nausea/vomiting: none Hydration status: euvolemic Anesthesia Preprocedure Evaluation - Jax Sotner APRN, CRNA - 07/10/2017 11:48 AM CST Anesthesia Pre-Evaluation Review of Systems and Problem List PROBLEM LIST Relevant Problems (+) Polymyalgia Rheumatica (HCC) [place] '12 TIA GERD Lt Vocal Cord Paralysis OBJECTIVE PHYSICAL EXAMINATION Airway (HEENT) Mallampati: I TM Distance: >3 FB Neck ROM: Full Cardiovascular Rhythm: Regular Rate: Normal Cardiovascular Assessment: Normal Pulmonary Pulmonary Assessment: Clear Neurological Normal Dental Normal General / Constitutional Normal ASSESSMENT / PLAN ANESTHESIA PLAN ASA: 2 Anesthesia Plan: MAC Patient seen and allergies reviewed; anesthesia plan and risks discussed directly with patient / legal guardian, or through an amortization clerk; patient evaluated and approved for anesthesia / sedation. The use of blood products not discussed MAC Patient identified, chart reviewed, anesthetic plan discussed with patient, patient agrees with plan. documented in this encounter Plan of Treatment Not on filedocumented as of this encounter Visit Diagnoses Not on filedocumented in this encounter Administered Medications Inactive Administered Medications - up to 3 most recent administrations Medication Order MAR Action Action Date Dose Rate Site fentaNYL injection (for_SUBLIMAZE) Given 07/21/2017 9:03 AM CDT 50 mcg intravenous, As needed, severe pain or score 7-10 of 10, Starting on Fri07/21/17 at 0903, Anesthesia Intra-op midazolam (PF) injection (for_VERSED) Given 07/21/2017 9:03 AM CDT 1 mg As needed, Starting on Fri07/21/17 at 0903, Anesthesia Intra-op ondansetron (PF) injection (for_ZOFRAN) Given 07/21/2017 9:06 AM CDT 4 mg As needed, nausea, vomiting, Starting on 07/21/17 at 0906, Anesthesia Intra-op documented in this encounter Additional Health Concerns Assessment Noted Time PHQ-9 Depression Total Score: 2 03/08/2015 11:16 AM CS T documented as of this encounter
--- OUTSIDE RECORDS SUMMARY | 2021-12-17 09:48 | XMS_ITS | Encounter Summary ---
:1940 Author Organization [facility] Address [address] [place] [address] Care Team Providers Name Role Phone Unavailable Primary Care Provider Unavailable Encounter Details Date Type Department Care Team Description 11/12/2017 Clinical Communication Department of Raymundo Muniz Ophthalmology in Fabricio Soares M.D. [address] [place] [address]1 [id number] [phone] Social History Tobacco Use Types Packs/Day Years [...]
--- OUTSIDE RECORDS SUMMARY | 2021-12-17 09:48 | XMS_ITS | Encounter Summary ---
:1940 Author Organization [facility] Address [address] [place] [address] Care Team Providers Name Role Phone Unavailable Primary Care Provider Unavailable Encounter Details Date Type Department Care Team Description 07/07/2017 Anesthesia Event [facility] MAIN OR La Nena Ochoa, ED, TALENT PROGRAM MANAGER, DNAP [address] [place] [address] Jax Stoner, ED, TALENT PROGRAM MANAGER, [place] [address] Anesthesia Record Procedure Summary Procedure Name Responsible Anesthesia Start Anesthesia Stop Anesthesiologist Time Time EXTRACTION CATARACT La Nena Ochoa, 07/07/17 0823 07/07 0847 WITH INSERTION DYER AND WASHER, TALENT PROGRAM MANAGER, DNAP INTRAOCULAR LENS (Right) Events Date Time Event Comment 07/07/2017 0809 0823 An Start Machine/Equipmen t Checked Infection Precautions Foll owed Procedure/Site Verified NPO Sta tus Verified Supine Standard ASA Mon itors Applied 0823 In Room 0826 Turnover to Proceduralist 0831 Proc Start 0839 Proc Fin 0840 Out of Room 0840 Turnover to ANE Staff 0840 an stop data 0847 An End I completed my h andoff to the receiving staff during [facility] we 1. Identified the patient 2. [...] mg/mL 1 mg fentanyl injection 50 mcg/mL 25 mcg Agents No agents on file. Blood No blood administrations on file. Lines, Drains, and Airways Type Details Placement Removal Peripheral IV Placement Date: 07/07/17; 07/07/17721 by 07/07 by Placement Time: 721; Rose Bradford Brand, C onstance A, Catheter Size: 22 G; R.N. R.N. Orientation: Left; Location: Hand; Site Prep: Chlorhexidine (Preferred); Technique: Anatomical landmarks; Insertion Attempts: 1; Removal Date: 07/07/17; Removal Time: 906; Removal Reason: Per protocol (RETIRED) Incision 07/07/17; 08; No 07/07/17 08 by 07/07/17 09 by dressing; no discharge or Katrina Castillo Bran d, Constance A, redness; pupil dilated; R.N. R.N. 07/07/17; 906 documented in this encounter Social History Tobacco Use Types Packs/Day Years Used Date Smoking Tobacco: Former Smokeless Tobacco: Never Alcohol Use Standard Drinks/Week Comments No 0 (1 standard drink = 0.6 oz pure alcoho l) Sex Assigned at Date Recorded Not on file documented as of this encounter OR Notes Anesthesia Postprocedure Evaluation - La Nena Ochoa APRN, JONATHAN, DNAP - 07/07/2017 8:48 AM CST Patient: Obey Vines Procedure Summary Date: 07/07/17 Room / Location: [place] [address] CAC 2-220 / [facility] OR Anesthesia Start: 822 Anesthesia Stop: 846 Procedure: EXTRACTION CATARACT WITH INSERTION INTRAOCULAR LENS (Right ) Diagnosis: Cataract Senile Nuclear Sclerosis Right (Cataract Senile Nuclear Sclerosis Right [H25.11]) Surgeon: Raymundo Muniz M.D. Responsible Provider: La Nena Ochoa APRN, JONATHAN, DNAP Anesthesia Type: MAC ASA Status: 3 Anesthesia Type: MAC Last vitals BP 135/73 (07/07/17715) Temp 36.4 ??C (07/07/17715) Pulse 66 (07/07/17715) Resp 16 (07/07/17715) SpO2 95 % (07/07/17715) Anesthesia Post Evaluation 07/07/2017 8:49 AM Patient Disposition: dismissal Cardiovascular status: hemodynamics (HR & BP) acceptable Respiratory status: patent airway with spontaneous effort Temperature: normothermic Oxygen requirements: room air Level of consciousness: awake Pain score: pain adequately controlled and/or at baseline Post Op nausea/vomiting: none Hydration status: euvolemic CARDIOLOGIST Anesthesia Preprocedure Evaluation - La Nena Ochoa APRN, CRNA, DNAP - 07/03/2017 9:20 AM CST Anesthesia Pre-Evaluation Review of Systems and Problem List PROBLEM LIST Relevant Problems (+) Polymyalgia Rheumatica (HCC) CAD Stroke OBJECTIVE PHYSICAL EXAMINATION Airway (HEENT) Mallampati: III TM Distance: >3 FB Neck ROM: Limited Cardiovascular Rhythm: Regular Rate: Normal Cardiovascular Assessment: Normal Functional Capacity: >4 METS Pulmonary Pulmonary Assessment: Clear Neurological Neurologic Assessment: Alert and oriented X 3 Dental Dental Assessment: Dentition intact General / Constitutional Constitutional Assessment: Normal ASSESSMENT / PLAN ANESTHESIA PLAN ASA: 3 Anesthesia Plan: MAC Patient seen and allergies reviewed; anesthesia plan and risks discussed directly with patient / legal guardian, or through an concrete pile driver operator; patient evaluated and approved for anesthesia / sedation. The use of blood products not discussed MAC, minimal sedation Patient identified, chart reviewed, anesthetic plan discussed with patient, patient agrees with plan. CARDIOLOGIST documented in this encounter Plan of Treatment Not on filedocumented as of this encounter Visit Diagnoses Not on filedocumented in this encounter Administered Medications Inactive Administered Medications - up to 3 most recent administrations Medication Order MAR Action Action Date Dose Rate Site fentaNYL injection (for_SUBLIMAZE) Given 07/07/2017 8:26 AM ECHOCARDIOLOGIST 25 mcg intravenous, As needed, severe pain or score 7-10 of 10, Starting on Fri07/07/17 at 0826, Anesthesia Intra-op midazolam (PF) injection (for_VERSED) Given 07/07/2017 8:26 AM ECHOCARDIOLOGIST 1 mg As needed, Starting on Fri07/07/17 at 0826, Anesthesia Intra-op documented in this encounter Additional Health Concerns Assessment Noted Time PHQ-9 Depression Total Score: 2 03/08/2015 11:16 AM CS T documented as of this encounter
--- OUTSIDE RECORDS SUMMARY | 2021-12-17 09:48 | XMS_ITS | Encounter Summary ---
:1940 Author Organization [facility] Address [address] [place] [address] Care Team Providers Name Role Phone Unavailable Primary Care Provider Unavailable Encounter Details Date Type Department Care Team Description 08/08/2017 Abstract Department of Family Medicine, Provider, Historical [facility], in [place], [place] [address] [place] [address] Social History Tobacco Use Types Packs/Day Years [...]
--- OUTSIDE RECORDS SUMMARY | 2021-12-17 09:48 | XMS_ITS | Encounter Summary ---
:1940 Author Organization [facility] Address [address] [place] [address] Care Team Providers Name Role Phone Unavailable Primary Care Provider Unavailable Encounter Details Date Type Department Care Team Description 08/13/2018 Hospital Encounter Department of Laila Loco, [facility] in [place], [place] [address] [facility] [address] [place] [phone] Social History Tobacco Use Types Packs/Day Years [...] tartrate 0 06/23/201708/15 (for_LOPRESSOR) 25 mg tablet tiiquaizxbvj-yqaraonl-gcg Take 1 tablet by 0 06/0608/15/2018 ifrah [...] Name Priority Date/Time Associated Comments Diagnosis MR CERVICAL SPINE RAD - Routine 08/13/2018 10:07 Pain Cervical Resu lts for this WITHOUT IV (most inpatients AM CDT procedure a re in CONTRAST and all the results outpatients) section. documented in this encounter Results MR Cervical Spine without IV Contrast (08/13/2018 10:07 AM CDT) Anatomical Region Laterality Modality Spine, Cervical Spine, Neuroradiology RST LOS, N/A Magnetic Resonance Neuroradiology ARZ LOS, Neuroradiology [facility] Specimen (Source) Anatomical Collection Method Collection Time Re ceived Time Location / / Volume Laterality 08/13/2018 10:21 AM CDT Impressions 08/13/2018 10:30 AM CDT IMPRESSION: 1. ??Moderate degenerative cervical spon dylosis. 2. ??Foraminal stenoses compress the exi ting right C5 and right C6 nerve roots. 3. 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 Narrative 08/13/2018 10:30 AM CDT EXAM: ??MR CERVICAL SPINE WITHOUT IV CONTRAST COMPARISON: ??CT cervical spine 04/10/08 FINDINGS: ??There is multilevel disc deh ydration, disc height loss, and disc endplate spurring. Additional level by l darlene change is detailed below: Skull base-C2: ??Anterior C1-2 mild dege nerative joint disease. C2-3: ??Severe left and mild right facet hypertrophy. C3-4: ??Moderate bilateral facet hypertr ophy. Right uncinate hypertrophy contributes to moderate right foraminal stenosis. C4-5: ??Severe right and moderate left f acet hypertrophy. Mild right uncinate hypertrophy. Severe right foraminal sten osis compresses the exiting right C5 nerve root. C5-6: ??Mild posterior annular disc bulg e contributes to mild central canal stenosis. Moderate bilateral facet hyper trophy. Bilateral uncinate hypertrophy. Severe right foraminal stenosis compress es the exiting right C6 nerve root. C6-7: ??Mild bilateral facet hypertrophy . Right uncinate hypertrophy. Moderate right foraminal stenosis. C7-T1: ??Mild bilateral facet hypertroph y. Alignment: ??Normal Bone Marrow: ??Chronic vertebral nirmal karissa fractures at C5, C7, T1, T2, T3, and T4. No acute compression fractures. Extra-spinal Findings: ??No significant incidental findings Procedure Note Neptali Devries M.D. - 08/13/2018 EXAM: MR CERVICAL SPINE WITHOUT IV CONTR AST COMPARISON: CT cervical spine 04/10/08 FINDINGS: There is multilevel disc dehyd ration, disc height loss, and disc endplate spurring. Additional level by l darlene change is detailed below: Skull base-C2: Anterior C1-2 mild degene rative joint disease. C2-3: Severe left and mild right facet h ypertrophy. C3-4: Moderate bilateral facet hypertrop hy. Right uncinate hypertrophy contributes to moderate right foraminal stenosis. C4-5: Severe right and moderate left fac et hypertrophy. Mild right uncinate hypertrophy. Severe right foraminal sten osis compresses the exiting right C5 nerve root. C5-6: Mild posterior annular disc bulge contributes to mild central canal stenosis. Moderate bilateral facet hyper trophy. Bilateral uncinate hypertrophy. Severe right foraminal stenosis compress es the exiting right C6 nerve root. C6-7: Mild bilateral facet hypertrophy. Right uncinate hypertrophy. Moderate right foraminal stenosis. C7-T1: Mild bilateral facet hypertrophy. Alignment: Normal Bone Marrow: Chronic vertebral compressi on fractures at C5, C7, T1, T2, T3, and T4. No acute compression fractures. Extra-spinal Findings: No significant in cidental findings IMPRESSION: 1. Moderate degenerative cervical spondy losis. 2. Foraminal stenoses compress the exiti ng right C5 and right C6 nerve roots. 3. Chronic cervical and upper thoracic v ertebral compression fractures. Laila NOBLES MRI PROCEDURES documented in this encounter Visit Diagnoses Diagnosis Pain Cervical documented in this encounter Additional Health Concerns Assessment Noted Time PHQ-9 Depression Total Score: 2 03/08/2015 11:16 AM CS T documented as of this encounter
--- OUTSIDE RECORDS SUMMARY | 2021-12-17 09:48 | XMS_ITS | Encounter Summary ---
:1940 Author Organization [facility] Address [address] [place] [address] Care Team Providers Name Role Phone Unavailable Primary Care Provider Unavailable Encounter Details Date Type Department Care Team Description 07/07/2017 Hospital Encounter [facility] OR Raymundo Mun[address] [place], [place] [address] [place], [place] [address] [place], [place] [phone] (Wo rk) Social History Tobacco Use Types Packs/Day Years Used Date Smoking Tobacco: Former Smokeless Tobacco: Never Alcohol Use Standard Drinks/Week Comments No 0 (1 standard drink = 0.6 oz pure alcoho l) Sex Assigned at Date Recorded Not on file documented as of this encounter Last Filed Vital Signs Vital Sign Reading Time Taken Comments Blood Pressure 110/77 07/07/2017 9:27 AM TIMEKEEPER Pulse 59 07/07/2017 9:27 AM TIMEKEEPER Temperature 36.4 ??C (97.5 ??F) 07/07/2017 8:47 AM TIMEKEEPER Respiratory Rate 16 07/07/2017 8:47 AM TIMEKEEPER Oxygen Saturation 95% 07/07/2017 9:27 AM TIMEKEEPER Inhaled Oxygen Concentration - - Weight - - Height - - Body Mass Index - - documented in this encounter Medications at Time [...] 01/09/2010 D3/MINERALS mouth daily. (CALCIUM-VITAMIN D ORAL) diclofenac Administer 1 drop 5 mL 1 05/01/2017 019 (for_VOLTAREN) 0.1 % into the right eye 4 ophthalmic solution (four) times a day. Use until gone. metoprolol succinate Take 0.5 tablets by 0 201408/16/2018 (for_TOPROL-XL) 12.5 mg mouth daily. Patient 24 hr tablet confirmed he was taking 0.5 tablet 1xday, however, Rx fill history suggests that it was the tartrate formulation. zgvmcuvkipzj-mjtptoxk-lr Take 1 tablet by 0 06/2508/15/2018 rrous gluconate mouth daily. (MULTIVITAMIN WITH MINERALS) 9 mg iron/15 mL liquid ofloxacin (for_OCUFLOX) 1 drop 4 (four) times 0 07/03/2018 0.3 % ophthalmic a day. solution omeprazole 0 01/27/2017 08/15/2018 (for_PriLOSEC) 20 mg capsule prednisoLONE acetate 1 drop 4 (four) times 0 07/03/2018 (for_PRED FORTE) 1 % a day. ophthalmic suspension brimonidine Administer 1 drop 5 mL 5 07/07/20172018 (for_ALPHAGAN) 0.2 % into the right eye 2 ophthalmic solution (two) times a day. metFORMIN (GLUCOPHAGE) Take 1-2 tablets by 0 08/0 05/201301/21/2020 500 mg tablet mouth 2 (two) times a day. metoprolol tartrate 0 06/23/201708/15 (for_LOPRESSOR) [address] 1 tablet under 0 06/25/2016 0 11/30/2021 (for_NITROSTAT) 0.4 mg the tongue every 5 SL tablet (five) minutes as needed for chest pain. omeprazole (PriLOSEC) 20 Take 1 capsule by 0 09/0308/16/[address] capsule mouth daily. documented as of this encounter H&P Notes Raymundo Muniz M.D. - 07/07/2017 9:35 AM CST History of present illness: The patient is here today, 07/07/2017, for cataract surgery on both eyes, right eye today. Subjectively the patient has no complaints. He has had no recent change in his medical health. He denies pain, cough, chest pain, shortness of breath, chills or fever. He has blurred vision in both eyes but worse in the right eye. His past medical history is remarkable for history of CVA, poly myalgia rheumatica, depression, hypertension, coronary artery disease. Medications are reviewed and reconciled. Review of systems: CV-no chest pain palpitations or shortness of breath, respiratory no cough, wheezing or shortness of breath, GI-no abdominal pain, diarrhea, neurologic-no new or localizing neurologic symptoms. Physical exam: Vital signs stable. Patient is no acute distress is well- nourished well-developed. Heart-S1-S2 clear without murmur, regular rate and rhythm, lungs-clear to auscultation, GI-abdomen softwithout tenderness or organ enlargement, back-no tenderness, neurologic-nonfocal The patient's a-scan and Pentacam are reviewed for IOL selection. Impression: 1. Medically stable 2. Visually significant cataracts OD greater than OS Plan: 1. Proceed with cataract surgery as scheduled on the right eye today and the left eye in 2 weeks. documented in this encounter OR Notes Op Note - Raymundo Muniz M.D. - 07/07/2017 8:31 AM CST FULL OP NOTE Procedure(s): EXTRACTION CATARACT WITH INSERTION INTRAOCULAR LENS (Right) Surgeon(s) and Role: * Raymundo Muniz M.D. 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 Implants Implant Name Type Inv. Item Serial No. Welding Instructor Lot No. LRB No. Used Action TENCNIS IOL Ocular Lens [id number] Ann [id number] Right 1 Implanted Raymundo Muniz M.D. PREOPERATIVE DIAGNOSIS Visually disabling nuclear sclerotic cataract of the right eye. POSTOPERATIVE DIAGNOSIS Visually disablingnuclear sclerotic cataract of the right eye. PROCEDURE PERFORMED Phacoemulsification with lens implantation, right eye. SURGEON Raymundo Muniz MD ANESTHESIA MAC. COMPLICATIONS None. CHIEF COMPLAINT Obey Vines presented with complaints of poor vision right eye. He had evidence of nuclear sclerotic cataract. The risks, benefits and alternatives to surgery were discussed including suprachoroidal hemorrhage, endophthalmitis, left eye. He desired emmetropia with a monofocal lens and a consent was obtained. PROCEDURE In the operating room after receiving topical anesthesia the right eye was prepped and draped in a sterile fashion. A lid speculum was placed in the eye. A 6:30 paracentesis tract was made. Viscoelastic was injected into the anterior chamber. A 2.5 mm clear corneal incision was made at the temporal limbus with the kwasi knife. A cystotome needle and Utrata forceps created a capsulorrhexis. Hydrodissection and hydrodelineation were performed. The central cortex and epinucleus were removed from within the capsulorrhexis using the phaco handpiece. The nucleus was grooved centrally and deeply aluzgnp91 degrees and cracked in half. Each nuclear half was disassembled using the phaco chopper and handpiece. Each nuclear fragment was captured, phacoemulsified and removed. The epinuclear bowl was captured, flipped over and removed in its entirety. Residual cortex was removed with the irrigation and aspiration handpiece. Viscoelastic filled the capsule and anterior chamber. An TONIO PCIOL model [id number] with a power of 20.5 diopters was inserted into the capsule without difficulty. Residual viscoelastic was removed from the capsule and anterior chamber. The stroma of the wound and paracentesis tracts werehydrated and the chamber filled to a normal intraocular pressure. The wounds were checked for leaks and none were found. The patient tolerated the procedure well and left the operating room in satisfactory condition. 0.2 mL of cefuroxime injected was into the anterior at the end of the case. The patient will recall managed with Dr. Miranda at 1 day postop. Raymundo Muniz M.D. KEEPER documented in this encounter Plan of Treatment Not on filedocumented as of this encounter Procedures Procedure Name Priority Date/Time Associated Diagnosis Comme nts EXTRACTION CATARACT WITH 07/07/2017 8:23 AM Cataract S enile INSERTION INTRAOCULAR TIMEKEEPER Nuclear Sclerosis LENS Right documented in this encounter Visit Diagnoses Diagnosis Cataract Senile Nuclear Sclerosis Right - Primary documented in this encounter Administered Medications Inactive Administered Medications - up to 3 most recent administrations Medication Order MAR Action Action Date Dose Rate Site brimonidine 0.2 % ophthalmic Given 07/07/2017 9:31 AM TIMEKEEPER 1 drop Right Eye solution 1 drop (for_ALPHAGAN) 1 drop, right eye, 2 times daily, First dose on Fri07/07/17 at 0930 cyclopentolate-phenylephrine 0.125-1.25 % Given 07/07/2017 7:25 AM TIMEKEEPER 1 drop ophthalmic solution 1 drop (for_DILATING DROPS) 1 drop, right eye, Once, On Fri07/07/17 at 0715, For 1 dose, Pre-Op, Apply over cornea in operative eye, towards superior fornix and towards inferior fornix. Apply at least 30 minutes prior to case tetracaine (PF) 0.5 % ophthalmic Given 07/07/2017 8:59 AM TIMEKEEPER 1 drop Right Eye solution 1 drop (for_ALTACAINE) 1 drop, right eye, Every 5 min, First dose on Fri07/07/17 at 0715, For 4 doses, Pre-Op, in operative eye Given 07/07/2017 7:21 AM TIMEKEEPER 1 drop Given 07/07/2017 7:18 AM TIMEKEEPER 1 drop documented in this encounter Active and Recently Administered Medications Times are shown in TIMEKEEPER. Scheduled Medication Order 07/05/2017 07/06/2017 07/07/2017 brimonidine 0.2 % ophthalmic solution 1 drop (for_ALPHAGAN) 0931 (Given - Provider: Neetu Patterson RSelvin) 1 drop, right eye, 2 times daily, First dose on Fri07/07/17 at 09 30 cyclopentolate-phenylephrine 0.125-1.25 % ophthalmic solution 1 drop (for_DILATING DROPS) (COMPLETED) 0725 (G iven - Provider: Rose Bradford R.N.) 1 drop, right eye, Once, On Fri07/07/17 a t 0715, For 1 dose, Pre-Op, Apply over cornea in operative eye, towards superior fornix and towards inferior fornix. Apply at least 30 minutes prior to case moxifloxacin 0.5 % ophthalmic solution 1 drop (for_VIGAMOX) 0715 (Due) 1 drop, right eye, Once, Fri07/07/17 at 0 715, For 1 dose, Intra-Op, 0.1 cubic centimeters intracamerally., Indications: prevent endophthalmitis tetracaine (PF) 0.5 % ophthalmic solution 1 drop (for_ALTACAINE) (COMPLETED) 0715 (Given - Provider: Rose Bradford R.N.)0718 (Given - Provider: Rose Bradford R.N.)0721 (Given - Provider: Rose Bradford R.N.)0859 (Given - Provider: Neetu Patterson RLaraNLara) 1 drop, right eye, Every 5 min, First do se on Fri07/07/17 at 0715, For 4 doses, Pre-Op, in operative eye PRN Medication Order 07/05/2017 07/06/2017 07/07/2017 balanced salt solution ophthalmic irrigation (for_BSS) (CANCELED ) 0832 (Given - Provider: Raymundo Muniz M.D.) As needed, Starting on Fri07/07/17 at 0832, Intra-Op carbachol 0.01 % ophthalmic solution (for_MIOSTAT) (CANCELED) 0832 (Given - Provider: Raymundo Muniz M.D.) As needed, Starting on Fri07/07/17 at 0832, Intra-Op cefUROXime intraocular injection (for_ZINACEF) (CANCELED) 0832 (Given - Provider: Raymundo Muniz M.D.) As needed, Starting on Fri07/07/17 at 0832, Intra-Op EPINEPHrine 0.3 mg in balanced salt solu tion plus 500 mL ophthalmic irrigation (CANCELED) 0832 (Given - Provid er: Raymundo M Flavio, M.D.) As needed, Starting on Fri07/07/17 at 0832, Intra-Op povidone-iodine 5 % ophthalmic solution (for_BETADINE) (CANCELED ) 0832 (Given - Provider: Raymundo Muniz M.D.) As needed, Starting on Fri07/07/17 at 0832, Intra-Op tetracaine (PF) 0.5 % ophthalmic solution (for_ALTACAINE) (CANCE LED) 0832 (Given - Provider: Katrina Castillo R.N.) As needed, Starting on Fri07/07/17 at 0832, Intra-Op documented in this encounter Additional Health Concerns Assessment Noted Time PHQ-9 Depression Total Score: 2 03/08/2015 11:16 AM CS T documented as of this encounter
--- OUTSIDE RECORDS SUMMARY | 2021-12-17 09:48 | XMS_ITS | Encounter Summary ---
:1940 Author Organization [facility] Address [address] [place] [address] Care Team Providers Name Role Phone Unavailable Primary Care Provider Unavailable Encounter Details Date Type Department Care Team Description 07/17/2017 Abstract Department of Family Medicine, Provider, Historical [facility], in [place], [place] [address] [place] [address] Social History Tobacco Use Types Packs/Day [...]
--- OUTSIDE RECORDS SUMMARY | 2021-12-17 09:48 | XMS_ITS | Encounter Summary ---
:1940 Author Organization [facility] Address [address] [place] [address] Care Team Providers Name Role Phone Unavailable Primary Care Provider Unavailable Encounter Details Date Type Department Care Team Description 11/21/2017 Hospital Encounter [facility] [place] [address]ly [facility] [address] [place] [address] [address] [address] [place], [place] [phone] [id number] (Work) [phone] Social History Tobacco Use Types Packs/Day Years [...] tablet See Instructions, Take by mouth daily. brimonidine Administer 1 drop 5 mL 5 07/07/20172018 (for_ALPHAGAN) 0.2 % into the right eye 2 ophthalmic solution (two) times a day. CALCIUM CARB/VIT Take 1 tablet by 0 01/09/2010 D3/MINERALS mouth daily. (CALCIUM-VITAMIN D ORAL) diclofenac Administer 1 drop 5 mL 1 05/01/2017 019 (for_VOLTAREN) 0.1 % into the right eye 4 ophthalmic solution (four) times a day. Use until gone. metFORMIN (GLUCOPHAGE) Take 1-2 tablets by 0 08/05/201301/21/2020 500 mg tablet mouth 2 (two) times a day. metoprolol succinate Take 0.5 tablets by 0 201408/16/2018 (for_TOPROL-XL) 12.5 mg mouth daily. Patient 24 hr tablet confirmed he was taking 0.5 tablet 1xday, however, Rx fill history suggests that it was the tartrate formulation. metoprolol tartrate 0 06/23/201708/15 (for_LOPRESSOR) 25 mg tablet fzjagbmohruh-copdkxle-vo Take 1 tablet by 0 06/2508/15/2018 rrous gluconate mouth daily. (MULTIVITAMIN WITH MINERALS) 9 mg iron/[address] 1 tablet under 0 06/25/2016 0 11/30/2021 (for_NITROSTAT) 0.4 mg the tongue every 5 SL tablet (five) minutes as needed for chest pain. ofloxacin (for_OCUFLOX) 1 drop 4 (four) times 0 07/03/2018 0.3 % ophthalmic a day. solution omeprazole 0 01/27/2017 08/15/2018 (for_PriLOSEC) 20 mg capsule omeprazole (PriLOSEC) 20 Take 1 capsule by 0 09/0308/16/[address] capsule mouth daily. prednisoLONE acetate 1 drop 4 (four) times 0 07/03/2018 (for_PRED FORTE) 1 % a day. ophthalmic suspension documented as of this encounter Plan of Treatment Not on filedocumented as of this encounter Procedures Procedure Name Priority Date/Time Associated Comments Diagnosis BMD BONE DENSITY RAD - Routine 11/21/2017 8:12 Screening Results for this SPINE HIPS (most inpatients AM CDT Osteoporosis procedure a re in and all the results outpatients) section. documented in this encounter Results BMD Bone Density Spine Hips (11/21/2017 8:12 AM CDT) Anatomical Region Laterality Modality Hip, Lumbar Spine, Nuclear Medicine RST LOS N/A Radiographic Imaging Specimen (Source) Anatomical Collection Method Collection Time Re ceived Time Location / / Volume Laterality 11/21/2017 8:15 AM CDT Impressions 11/21/2017 8:17 AM CDT Impression: Osteoporosis. Narrative 11/21/2017 8:17 AM CDT EXAM: BMD BONE DENSITY SPINE HIPS COMPARISON: None. Collar Feller/Model: [employer] FINDINGS: ?? LUMBAR SPINE L1-L4 included unless otherwise indicate d. Lumbar BMD: 0.966 gm/cm2 T-score: -2.2 BMD % change: N/A% Significance: N/A. HIP(S) Lowest femoral BMD: 0.684 gm/cm 2 Lowest T-score: -3.0 BMD % change: N/A% Significance: N/A. FRAX 10 year probability of major osteop orotic fracture 24.9 % FRAX 10 year probability of hip fracture ??12.3 % FRAX scores: Not clinically validated fo r patients with history of therapy with bisphosphonates in the past two years, c alcitonin in the last year, PTH in the last year, Denosumab in the last year. ? ?Calcium and vitamin D do NOT constitute treatment' in this context. ??All treat ment decisions require clinical judgement and consideration of individual patient factors which may not be captured in the FRAX model and the risk of fracture may be over- or under-estimated by FRAX. Treatment recommended for: Patients with hip or vertebral fracture (clinical or morphometric). Patients with osteoporosis at the spine and/or hip as defined by T-score <= -2.5. Postmenopausal women or men age 50 and o lder with low bone mass (T-score -1 to -2.5, osteopenia) at the femoral neck, t otal hip, or spine and 10 year hip fracture probability >3% or a 10 year al l major osteoporosis related fracture probability of >20% based on the [place] apted WHO absolute risk model. Exclude secondary causes of low bone den sity in the appropriate clinical setting. Follow-up exams should be performed at n o sooner than two-year intervals. Direct comparison can only be performed on exams performed at the same facility. World Health Organization T-score criter ia: 0 to -1.0 ?? Normal range < -1.0 to > -2.5 ?? Low bone density (os teopenia) -2.5 or less ?? Osteoporosis Procedure Note Tommy Castillo M.D. - 11/21/2017For matting of this note might be different from the original. EXAM: BMD BONE DENSITY SPINE HIPS COMPARISON: None. Collar Feller/Model: [employer] FINDINGS: LUMBAR SPINE L1-L4 included unless otherwise indicate d. Lumbar BMD: 0.966 gm/cm2 T-score: -2.2 BMD % change: N/A% Significance: N/A. HIP(S) Lowest femoral BMD: 0.684 gm/cm 2 Lowest T-score: -3.0 BMD % change: N/A% Significance: N/A. FRAX 10 year probability of major osteop orotic fracture 24.9 % FRAX 10 year probability of hip fracture 12.3 % FRAX scores: Not clinically validated fo r patients with history of therapy with bisphosphonates in the past two years, c alcitonin in the last year, PTH in the last year, Denosumab in the last year. C alcium and vitamin D do NOT constitute treatment' in this context. All treatme nt decisions require clinical judgement and consideration of individual patient factors which may not be captured in the FRAX model and the risk of fracture may be over- or under-estimated by FRAX. Treatment recommended for: Patients with hip or vertebral fracture (clinical or morphometric). Patients with osteoporosis at the spine and/or hip as defined by T-score <= -2.5. Postmenopausal women or men age 50 and o lder with low bone mass (T-score -1 to -2.5, osteopenia) at the femoral neck, t otal hip, or spine and 10 year hip fracture probability >3% or a 10 year al l major osteoporosis related fracture probability of >20% based on the [place] ad apted WHO absolute risk model. Exclude secondary causes of low bone den sity in the appropriate clinical setting. Follow-up exams should be performed at n o sooner than two-year intervals. Direct comparison can only be performed on exams performed at the same facility. World Health Organization T-score criter ia: 0 to -1.0 Normal range < -1.0 to > -2.5 Low bone density (osteo penia) -2.5 or less Osteoporosis Impression: Osteoporosis. Laila NOBLES DXA PROCEDURES documented in this encounter Visit Diagnoses Diagnosis Screening Osteoporosis documented in this encounter Additional Health Concerns Assessment Noted Time PHQ-9 Depression Total Score: 2 03/08/2015 11:16 AM CS T documented as of this encounter
--- OUTSIDE RECORDS SUMMARY | 2021-12-17 09:48 | XMS_ITS | Encounter Summary ---
:1940 Author Organization [facility] Address [address] [place] [address] Care Team Providers Name Role Phone Unavailable Primary Care Provider Unavailable Encounter Details Date Type Department Care Team Description 07/07/2017 Surgery [facility] NE[facility] OR Raymundo Muniz, EXTRACTION CATARACT [address] [place] [address] BL[address] M.DLara WITH INSERTION [place], [place] [address] INTRAOCULAR LENS [address] [place], [place] [phone] (Wo rk) Social History Tobacco Use Types Packs/Day Years Used Date Smoking Tobacco: Former Smokeless Tobacco: Never Alcohol Use Standard Drinks/Week Comments No 0 (1 standard drink = 0.6 oz pure alcoho l) Sex Assigned at Date Recorded Not on file documented as of this encounter Last Filed Vital Signs Vital Sign Reading Time Taken Comments Blood Pressure 121/81 07/07/2017 9:00 AM [employer] Pulse 58 07/07/2017 9:00 AM [employer] Temperature 36.4 ??C (97.5 ??F) 07/07/2017 8:47 AM [employer] Respiratory Rate 16 07/07/2017 8:47 AM [employer] Oxygen Saturation 94% 07/07/2017 9:00 AM [employer] Inhaled Oxygen Concentration - - Weight - [...] suggests that it was the tartrate formulation. yewycrzwmnjl-jmrjtxhi-of Take 1 tablet by 0 06/2508/15/2018 rrous [...] Implant Name Type Inv. Item Serial No. Entrance Guard Lot No. LRB No. Used Action TENCNIS IOL Ocular Lens [id number] [place] [id number] Right 1 Implanted Raymundo Muniz M.D. PREOPERATIVE [...] The nucleus was grooved centrally and deeply erwtbns90 degrees and cracked in half. Each nuclear [...] at 1 day postop. Raymundo Muniz M.D. [employer] documented in this encounter Plan of Treatment Not on filedocumented as of this encounter Procedures Procedure Name Priority Date/Time Associated Diagnosis Comme nts EXTRACTION CATARACT WITH 07/07/2017 8:23 AM Cataract S enile INSERTION INTRAOCULAR [employer] Nuclear Sclerosis LENS Right documented in this encounter Visit Diagnoses Diagnosis Cataract Senile Nuclear Sclerosis Right - Primary Cataract Senile Nuclear Sclerosis Right documented in this encounter Administered Medications Inactive Administered Medications - up to 3 most recent administrations Medication Order MAR Action Action Date Dose Rate Site balanced salt solution ophthalmic Given 07/07/2017 8:32 AM [employer] 1 5 mL irrigation (for_BSS) As needed, Starting on Fri07/07/17 at 0832, Intra-Op brimonidine 0.2 % ophthalmic solution Given 07/07/2017 9:[address] 1 drop Right Eye 1 drop (for_ALPHAGAN) 1 drop, right eye, 2 times daily, First dose on Fri07/07/17 at 0930 carbachol 0.01 % ophthalmic solution Given 07/07/2017 8:32 AM CS T 0.5 mL (for_MIOSTAT) As needed, Starting on Fri07/07/17 at 0832, Intra-Op cefUROXime intraocular injection (for_ZI NACEF) Given 07/07/2017 8:32 AM [employer] 1 mg As needed, Starting on Fri07/07/17 at 0832, Intra-Op cyclopentolate-phenylephrine 0.125-1.25 % Given 07/07/2017 7:25 AM [employer] 1 drop ophthalmic solution 1 drop (for_DILATING DROPS) 1 drop, right eye, Once, On Fri07/07/17 at 0715, For 1 dose, Pre-Op, Apply over cornea in operative eye, towards superior fornix and towards inferior fornix. Apply at least 30 minutes prior to case EPINEPHrine 0.3 mg in balanced salt solution Given 09/2017 8:32 AM [employer] 500 mL plus 500 mL ophthalmic irrigation As needed, Starting on Fri07/07/17 at 0832, Intra-Op povidone-iodine 5 % ophthalmic solution Given 07/07/2017 8:32 AM [employer] 30 mL (for_BETADINE) As needed, Starting on Fri07/07/17 at 0832, Intra-Op tetracaine (PF) 0.5 % ophthalmic solution Given 07/07/2017 8:32 AM [employer] 1 drop (for_ALTACAINE) As needed, Starting on Fri07/07/17 at 0832, Intra-Op tetracaine (PF) 0.5 % ophthalmic Given 07/07/2017 8:59 AM [employer] 1 drop Right Eye solution 1 drop (for_ALTACAINE) 1 drop, right eye, Every 5 min, First dose on Fri07/07/17 at 0715, For 4 doses, Pre-Op, in operative eye Given 07/07/2017 7:21 AM [employer] 1 drop Given 07/07/2017 7:18 AM [employer] 1 drop documented in this encounter Active and Recently Administered Medications Times are shown in [employer]. Scheduled Medication Order 07/05/2017 07/06/2017 07/07/2017 brimonidine 0.2 % ophthalmic solution 1 drop (for_ALPHAGAN) 0931 (Given - Provider: Neetu Patterson R.N.) 1 drop, right eye, 2 times daily, First dose on Fri07/07/17 at 09 30 cyclopentolate-phenylephrine 0.125-1.25 % ophthalmic solution 1 drop (for_DILATING DROPS) (COMPLETED) 0725 (Julienne cheung - Provider: Rose Bradford R.N.) 1 drop, [...] Provider: Rose Bradford R.N.)0721 (Given - Provider: Angella LewisN.)0859 (Given - Provider: Neetu Patterson R.N.) 1 drop, right eye, Every 5 min, [...] (CANCELED) 0832 (Given - Provid er: Raymundo Muniz M.D.) As needed, Starting on [...]
--- OUTSIDE RECORDS SUMMARY | 2021-12-17 09:48 | XMS_ITS | Encounter Summary ---
:1940 Author Organization [facility] Address [address] [place] [address] Care Team Providers Name Role Phone Unavailable Primary Care Provider Unavailable Encounter Details Date Type Department Care Team Description 07/21/2017 [facility] Raymundo Muniz, EXTRACTION CATARACT [address] [place] [address] [address] [place] WITH [place], [place] [address] INTRAOCULAR LENS [id number] [place], [place] [phone] (Wo rk) Social History Tobacco Use Types Packs/Day Years Used Date Smoking Tobacco: Unknown Smokeless Tobacco: Never Alcohol Use Standard Drinks/Week Comments No 0 (1 standard drink = 0.6 oz pure alcoho l) Sex Assigned at Date Recorded Not on file documented as of this encounter Last Filed Vital Signs Vital Sign Reading Time Taken Comments Blood Pressure 100/68 07/21/2017 9:26 AM CDT Pulse 62 07/21/2017 9:26 AM CDT Temperature 36.5 ??C (97.7 ??F) 07/21/2017 9:26 AM CDT Respiratory Rate 16 07/21/2017 9:26 AM CDT Oxygen Saturation 93% 07/21/2017 9:26 AM CDT Inhaled Oxygen Concentration - - Weight - - Height - - Body Mass Index - - documented in this encounter Discharge Instructions Discharge Shira Aldana R.N. - 07/17/2017 3:19 PM CDT Images from the original note were not included. [facility] Cataract/Trabeculectomy Discharge Instructions, Eye Care When you leave the hospital after your eye surgery, follow these instructions: Medications: Start these eye drops as directed. Wait approximately five minutes between eye drops. Today Vigamox/Zymaxid/Ofloxacin (wong cap) - 1 drop to eye, 4 times/day until bottle is empty. Tobramycin (white cap) - 1 drop to eye, 4 times/day for 10 days. Diclofenac/Ketorolac (cervantes cap) - 1 drop to eye, 4 times/day until bottle is empty. Prednisolone (pink cap) - 1 drop to eye, 4 times/day for a minimum of 30 days. Durezol 1 drop eye, 2 times/day for a minimum of 30 days. Eye Shield should be worn at bed time or while napping to protect the eye. Wear the shield for at least a week or as instructed by your doctor. If you are discharged wearing an eyepatch: Remove eye patch long enough to put eye drops in as directed. Leave eye patch in place until you seethe doctor. Follow-up Appointment (bring bag with eye drops and this sheet) Date (Month DD, YYYY) Time (hh:mm) Ophthalmology at [facility] Phone Numbers: Office: [phone] Toll Free: [phone] ext. [phone] ??2015 [facility] Page 1 of 2 [id number] When you leave the hospital after your eye surgery, follow these instructions: Do not rub or press your eye for one week. Sunglasses: It is necessary to wear your glasses or sunglasses when you are outside to protect your eye while it is healing. It is normal to be sensitive to sunlight for several weeks following surgery and the sunglasses willhelp reduce this. Morning Crusting: A slight mattering is normal for a few days after surgery. Use a gauze pad or cotton ball, moistened with clean water to gently remove it. Activities: You can do all your normal activities, provided they are not extremely heavy. Do not lift anything over 25 lbs for one week. If you need a work-restriction note from your provider, ask for one at your follow-up appointment. If a physical activity makes your eye hurt, avoid it. It is fine to bend over, read or watch TV. Use your eyes as much as you want. Avoid swimming pools and hot tubs for two weeks. What to expect as your eye heals: Your vision on the day of surgery may be foggy and hazy; this is normal and will clear as your eye heals. Your glasses will be wrong for your eye but wearing them while the eye heals will not hurt it; however, you may ask the [facility] to remove one eyeglass lens so that you can see with your surgically-repaired eye. Your glasses will be changed, as needed, two to four weeks following surgery or after your second eye surgery, if applicable. It is common to see small spots floating in your vision immediately following surgery. If severe floaters develop suddenly or are accompanied by flashes of light, call your surgeon. If the vision becomes more blurred rather than clearer or if you have increasing pain or excessive drainage, call your surgeon. It is not unusual to see pink or red colors or for your eye to feel scratchy a few days after surgery. If there are any problems or concerns, contact your doctor or come to the Urgent Care or Emergency Department. If you have had anesthesia or sedation, do not drive for 24 to 48 hours. documented in this encounter Medications at Time of Discharge Medication Sig Dispensed Refills Start Date End Date atorvastatin Take 80 mg by mouth 0 01/27/2017 (for_LIPITOR) 80 mg daily. tablet ZETIA 10 mg tablet Take 10 mg by mouth 0 01/09/20 17 daily. brimonidine Administer 1 drop 5 mL 5 07/07/20172018 (for_ALPHAGAN) 0.2 % into the right eye 2 ophthalmic solution (two) times a day. diclofenac Administer 1 drop 5 mL 1 05/01/2017 019 (for_VOLTAREN) 0.1 % into the right eye 4 ophthalmic solution (four) times a day. Use until gone. metoprolol succinate Take 0.5 tablets by 0 201408/16/2018 (for_TOPROL-XL) 12.5 mg mouth daily. Patient 24 hr tablet confirmed he was taking 0.5 tablet 1xday, however, Rx fill history suggests that it was the tartrate formulation. ofloxacin (for_OCUFLOX) 1 drop 4 (four) times 0 07/03/2018 0.3 % ophthalmic a day. solution prednisoLONE acetate 1 drop 4 (four) times 0 07/03/2018 (for_PRED FORTE) 1 % a day. ophthalmic suspension aspirin 0.1 mg capsule aspirin 81 mg oral 0 07/3108/15/2018 tablet See Instructions, Take by mouth daily. CALCIUM CARB/VIT Take 1 tablet by 0 01/09/2010 D3/MINERALS mouth daily. (CALCIUM-VITAMIN D ORAL) metFORMIN (GLUCOPHAGE) Take 1-2 tablets by 0 05/201301/21/2020 500 mg tablet mouth 2 (two) times a day. metoprolol tartrate 0 06/23/201708/15 (for_LOPRESSOR) 25 mg tablet jshbynmifjcc-[id number]-mh Take 1 tablet by 0 06/2508/15/2018 rrous gluconate mouth daily. (MULTIVITAMIN WITH MINERALS) 9 mg iron/[address] 1 tablet under 0 06/25/2016 0 11/30/2021 (for_NITROSTAT) 0.4 mg the tongue every 5 SL tablet (five) minutes as needed for chest pain. omeprazole 0 01/27/2017 08/15/2018 (for_PriLOSEC) 20 mg capsule omeprazole (PriLOSEC) 20 Take 1 capsule by 0 09/0308/16/[address] capsule mouth daily. documented as of this encounter H&P Notes Raymundo Muniz M.D. - 07/21/2017 9:03 AM CDT INTERVAL HISTORY AND PHYSICAL PRE-PROCEDURE UPDATE H&P reviewed. The patient was examined and there are no significant changes to the H&P. Raymundo Muniz M.D. Source Note - Raymundo Muniz M.D. - 07/07/2017 9:35 AM PRINTER HELPER History of present illness: The patient is [...] and the left eye in 2 weeks. Raymundo Muniz M.D. - 07/21/2017 8:53 AM CDT SUBJECTIVE CHIEF COMPLAINT Patient is a 77 y.o. male who presents with blurred vision is left eye and is anticipating having cataract surgery in his left eye today. He had a preop H&P within 30 days and has had no interval change in his health. HISTORY OF PRESENT ILLNESS Blurred vision of his left eye REVIEW OF SYSTEMS CV-negative, respiratory-negative, neuro-negative OBJECTIVE VITAL SIGNS Temperature: [36.7 ??C] 36.7 ??C Resp Rate: [17] 17 Blood Pressure: (108)/(80) 108/80 SpO2: [95 %] 95 % Pulse Rate: [59] 59 EXAM Not recorded Heart-S1-S2 clear without murmur, regular rate and rhythm, respiratory-lungs clear to auscultation, neuro-nonfocal DIAGNOSTICS I have reviewed the a scan and Pentacam for IOL selection ASSESSMENT / PLAN #1 Cataract Senile Nuclear Sclerosis Left 2. Medically stable Plan: Proceed with cataract of the left eye today as scheduled. documented in this encounter OR Notes Op Note - Raymundo Muniz M.D. - 07/21/2017 9:10 AM CDT FULL OP NOTE Procedure(s): EXTRACTION CATARACT WITH INSERTION INTRAOCULAR LENS (Left) Surgeon(s) and Role: * Raymundo Muniz M.D. - Primary * No surgical staff found * Anesthesia Type: Monitored Anesthesia Care Pre-Operative Diagnosis: Cataract Senile Nuclear Sclerosis Left [H25.12] Full Operative Note Details Specimens * No specimens in log * Drains Estimated Blood Loss 1 mL Implants Implant Name Type Inv. Item Serial No. Eyelet Machine Operator Lot No. LRB No. Used Action [id number] Ocular Lens [id number] Ann Left 1 Implanted Raymundo Muniz M.D. PREOPERATIVE DIAGNOSIS Visually disabling nuclear sclerotic cataract of the left eye. POSTOPERATIVE DIAGNOSIS Visually disablingnuclear sclerotic cataract of the left eye. PROCEDURE PERFORMED Phacoemulsification with lens implantation, left eye. SURGEON Raymundo Muniz MD ANESTHESIA MAC. COMPLICATIONS None. CHIEF COMPLAINT Obey Vines presented with complaints of poor vision left eye. He had evidence of nuclear sclerotic cataract. The risks, benefits and alternatives to surgery were discussed including suprachoroidal hemorrhage, endophthalmitis, left eye. He desired emmetropia with a monofocal lens and a consent was obtained. The a scan and Pentacam reviewed for IOL selection. PROCEDURE In the operating room after receiving topical anesthesia the left eye was prepped and draped in a sterile fashion. A lid speculum was placed in the eye. A 6:30 paracentesis tract was made. Viscoelasticwas injected into the anterior chamber. A 2.5 mm clear corneal incision was made at the temporal limbus with the kwasi knife. A cystotome needle and Utrata forceps created a capsulorrhexis. Hydrodissection and hydrodelineation were performed. The central cortex and epinucleus were removed from within the capsulorrhexis using the phaco handpiece. The nucleus was grooved centrally and deeply rotated 90 degrees and cracked in half. Each nuclear half was disassembled using the phaco chopper and handpiece. Each nuclear fragment was captured, phacoemulsified and removed. The epinuclear bowl was captured, flipped over and removed in its entirety. Residual cortex was removed with the irrigation and aspiration handpiece. Viscoelastic filled the capsule and anterior chamber. An TONIO PCIOL model [id number] witha power of 22.0 diopters was inserted into the capsule without difficulty. Residual viscoelastic wasremoved from the capsule and anterior chamber. The stroma of the wound and paracentesis tracts were hydrated and the chamber filled to a normal intraocular pressure. The wounds were checked for leaks and none were found. The patient tolerated the procedure well and left the operating room in satisfactory condition. 0.2 mL of cefuroxime and 0.2 miostat (for p-op intraocular pressure control) was injected was into the anterior at the end of the case. The patient will be co managed with Dr. Miranda at 1 day postop. Raymundo Muniz M.D. documented in this encounter Plan of Treatment Not on filedocumented as of this encounter Procedures Procedure Name Priority Date/Time Associated Diagnosis Comme nts EXTRACTION CATARACT WITH 07/21/2017 9:01 AM Cataract S enile INSERTION INTRAOCULAR CDT Nuclear Sclerosis L eft LENS documented in this encounter Visit Diagnoses Diagnosis Cataract Senile Nuclear Sclerosis Left - Primary Cataract Senile Nuclear Sclerosis Left documented in this encounter Administered Medications Inactive Administered Medications - up to 3 most recent administrations Medication Order MAR Action Action Date Dose Rate Site cefUROXime intraocular injection Given 07/21/2017 9:13 AM CDT 1 mg (for_ZINACEF) As needed, Starting on Fri07/21/17 at 0913, Intra-Op cyclopentolate-phenylephrine 0.125-1.25 Given 07/21/2017 7:56 AM 1 drop Left Eye % ophthalmic solution 1 drop CDT (for_DILATING DROPS) 1 drop, left eye, Once, On Fri07/21/17 at 0800, For 1 dose, Pre-Op, Apply over cornea in operative eye, towards superior fornix and towards inferior fornix. Apply at least 30 minutes prior to case EPINEPHrine 0.3 mg in balanced salt solution Given 9:13 AM CDT 500 mL plus 500 mL ophthalmic irrigation As needed, Starting on Fri07/21/17 at 0913, Intra-Op lidocaine 10 mg/mL (1 %) injection 1 mL Given 07/21/2017 9:13 AM CDT 1 mL (for_XYLOCAINE) 1 mL, infiltration, Once, On Fri07/21/17 at 0800, For 1 dose, Pre-Op, May admin up to 1 mL at the site of IV site if not allergic to lidocaine povidone-iodine 5 % ophthalmic solution Given 07/21/2017 9:13 AM CDT 30 mL (for_BETADINE) As needed, Starting on Fri07/21/17 at 0913, Intra-Op tetracaine (PF) 0.5 % ophthalmic Given 07/21/2017 7:53 AM CDT 1 drop Left Eye solution 1 drop (for_ALTACAINE) 1 drop, left eye, Every 5 min, First dose on Fri07/21/17 at 0800, For 4 doses, Pre-Op, in operative eye Given 07/21/2017 7:50 AM CDT 1 drop Left Eye Given 07/21/2017 7:47 AM CDT 1 drop Left Eye documented in this encounter Active and Recently Administered Medications Times are shown in CDT. Scheduled Medication Order 07/19/2017 07/20/2017 07/21/2017 cyclopentolate-phenylephrine 0.125-1.25 % ophthalmic solution 1 drop (for_DILATING DROPS) (COMPLETED) 0756 (G iven - Provider: Rose Bradford R.N.) 1 drop, left eye, Once, On Fri07/21/17 a t 0800, For 1 dose, Pre-Op, Apply over cornea in operative eye, towards superior fornix and towards inferior fornix. Apply at least 30 minutes prior to case lidocaine 10 mg/mL (1 %) injection 1 mL (for_XYLOCAINE) (COMPLET ED) 0800 (Due)0913 (Given - Provider: Raymundo Muniz M.D.) 1 mL, infiltration, Once, On Fri07/21/17 at 0800, For 1 dose, Pre-Op, May admin up to 1 mL at the site of IV site if not allergic to lidocaine moxifloxacin 0.5 % ophthalmic solution 1 drop (for_VIGAMOX) 0800 (Due) 1 drop, left eye, Once, Fri07/21/17 at 0 800, For 1 dose, Intra-Op, 0.1 cubic centimeters intracamerally., Indications: prevent endophthalmitis tetracaine (PF) 0.5 % ophthalmic solution 1 drop (for_ALTACAINE) 0747 (Given - Provider: Rose Bradford RLaraNLara)0750 (Given - Provider: Angella LewisN.)0753 (Given - Provider: Rose Bradford RLaraNLara)0815 (Due) 1 drop, left eye, Every 5 min, First dos e on Fri07/21/17 at 0800, For 4 doses, Pre-Op, in operative eye PRN Medication Order 07/19/2017 07/20/2017 07/21/2017 cefUROXime intraocular injection (for_ZINACEF) (CANCELED) 912 (Given - Provider: Raymundo Muniz M.D.) As needed, Starting on Fri07/21/17 at 0913, Intra-Op EPINEPHrine 0.3 mg in balanced salt solu tion plus 500 mL ophthalmic irrigation (CANCELED) 912 (Given - Provid er: Raymundo Muniz M.D.) As needed, Starting on Fri07/21/17 at 0913, Intra-Op povidone-iodine 5 % ophthalmic solution (for_BETADINE) (CANCELED ) 912 (Given - Provider: Raymundo Muniz M.D.) As needed, Starting on Fri07/21/17 at 0913, Intra-Op documented in this encounter Additional Health Concerns Assessment Noted Time PHQ-9 Depression Total Score: 2 03/08/2015 11:16 AM CS T documented as of this encounter
--- OUTSIDE RECORDS SUMMARY | 2021-12-17 09:48 | XMS_ITS | Encounter Summary ---
:1940 Author Organization [facility] Address [address] [place] [address] Care Team Providers Name Role Phone Unavailable Primary Care Provider Unavailable Encounter Details Date Type Department Care Team Description 08/15/2018 Surgery Division of Cardiovascular Jacques Barraza , Coronary Angiography Diseases in [facility] [address] [place] [id number] [phone] Social History Tobacco Use Types Packs/Day Years Used Date Smoking Tobacco: Former Smokeless Tobacco: Never Alcohol Use Standard Drinks/Week Comments No 0 (1 standard drink = 0.6 oz pure alcoho l) Sex Assigned at Date Recorded Not on file documented as of this encounter Last Filed Vital Signs Vital Sign Reading Time Taken Comments Blood Pressure 137/70 08/15/2018 9:36 AM CDT Pulse 57 08/15/2018 4:15 AM CDT Temperature 36.7 ??C (98.1 ??F) 08/15/2018 7:45 AM CDT Respiratory Rate 10 08/15/2018 9:45 AM CDT Oxygen Saturation 98% 08/15/2018 9:44 AM CDT Inhaled Oxygen Concentration - - Weight 65.2 kg (143 lb 11.8 oz) 08/15/2018 2:33 AM CDT Height 167 cm (5' 5.75) [...] Case IDs Date Procedure Surgeon Location Status [id number] 08/15/18 Coronary Angiography Jacques Barraza M.D. RST [...] started on heparin drip and transferred to [facility] for further management of NSTEMI. He underwent [...] exam, and recommendations by Dr. Meier. #1 [id number] myocardial infarction Mr. Vines will continue with [...] with the plan. CT CT Job ID: [id number] documented in this encounter H&P Notes Tom [...] intravenous heparin. He was taken to the laboratory secretary this morning, after informed consent was obtained, [...] by Dr. Monk and Dr. Corral. #1 [id number] myocardial infarction Mr. Vines was preloaded with [...] with the plan. CT CT Job ID: [id number] TTET Reji Espitia M.D. - 08/15/2018 8:47 AM [...] focal neurologic complaints. In the ED in [place], he was noted to have stable vitals [...] on heparin gtt prior to transfer to [facility]. Upon arrival, he is hemodynamically stable and [...] focal neurologic complaints. In the ED in [place], he was noted to have stable vitals [...] on heparin gtt prior to transfer to [facility]. Upon arrival, he is hemodynamically stable and [...] male with a history of CAD s/p TN and stent placement (mid-RCA, 2011), hyperlipidemia, and [...] ED physician spoke with Dr. Calderon at [facility] for recommendations and was suggested to treat his NSTEMI with aspirin 324 mg oral, Plavix 300 mg oral, and start a heparin bolus and drip. The was then transferred to [facility] via ambulance for further management of his [...] GERD, hyperlipidemia, ischemic stroke, CAD status post TN and stent placement - Surgical history: Carotid [...] ASSESSMENT/PLAN #1 NSTEMI #2 Coronary artery disease, TN s/p stent to mid-RCA (2011) #3 Ischemic stroke s/p carotid enterectomy #4 Hyperlipidemia Mr. Vines is a 78 y/o male with a history of CAD s/p TN and stent placement (mid- RCA, 2011) and [...] Summary: Education complete. Pt will d/c to [place]. No further questions CARDIOVASCULAR - ADULT ??? [...] mucous membranes remain intact Adequate for Discharge hade Barr R.N. - 08/16/2018 4:56 AM CDT Shift [...] of ecchymosis proximal to the site. Shade Carballo R.N. - 08/15/2018 6:20 AM CDT Shift [...] Implant Name Type Inv. Item Serial No. Thread Trimmer Lot No. LRB No. Used Action STNT SYNERGY SHAHAB [id number] - [id number] Cardiac Stent STNT SYNERGY SHAHAB [id number] [employer] [id number] N/A 1 Implanted Antiplatelet regimen: Aspirin 81 [...] Jung Castro M.D., M.P.H. [facility] Specialist [facility] 08/15/18 9:53 AM documented in this encounter [...] started on heparin drip and transferred to [facility] for further management of NSTEMI. He underwent [...] (08/16/2018 7:44 AM CDT) Analysis Performed At [facility] logist Time Signature Potassium, S 4.2 3.6 - 5.2 08/16/2018 [facility] mmol/L 8:51 AM CDT LAB[facility]ATORIES - [facility] Sodium, S 141 135 - 145 08/16/2018 [facility] mmol/L 8:51 AM CDT [facility] - [facility] Chloride, S 102 98 - 107 08/16/2018 [facility] mmol/L 8:51 AM CDT LABORATORIES [facility] Bicarbonate, S 23 22 - 29 08/16/2018 [facility] mmol/L 8:51 AM CDT LABORATORIES [facility] Anion Gap 16 (H) 7 - 15 08/16/2018 [facility] 8:51 AM CDT LAB[facility]ATORIES [facility] BUN (Blood 16 8 - 24 08/16/2018 [facility] Urea mg/dL 8:51 AM CDT LABORATORIES - Nitrogen), S [facility] Creatinine, S 1.18 0.74 - 08/16/2018 [facility] 1.35 mg/dL 8:51 AM CDT LABORATORIES [facility] eGFR-Non 59 (L) >=60 08/16/2018 [facility] Black/ mL/min/BSA 8:51 AM CDT LABORATORIES - [facility] Comment: ----ADDITIONAL INFORMATION---- Estimated GFR calculated using the 2009 CKD_EPI creatinine equation. eGFR-Black/ 68 >=60 mL/min/BSA 08/16/2018 8:51 [facility] CDT LABORATORIES [facility] Comment: ----ADDITIONAL INFORMATION---- Estimated GFR calculated using the 2009 CKD_EPI creatinine equation. Calcium, Total, S 9.5 8.8 - 10.2 mg/dL 08/16/2018 8:51 AM [facility] CDT [facility] Glucose, S 100 70 - 140 mg/dL 08/16/2018 8:51 AM [facility] CDT LABORATORIES [facility] Specimen Anatomical Collection Method Collection Time Receive d Time (Source) Location / / Volume Laterality Blood (Blood, 08/16/2018 7:44 AM 08/17/19 19 8:16 Venous) CDT AM CDT Tom Johnson M.D., Ph.D. LAB BLOOD ADD-ON Performing Organization Address City/State/ZIP Code Phon e Number [facility] LABORATORIES - [address] [id number] [facility] CBC with Differential, Blood (08/16/2018 7:44 AM CDT) [facility] gist Method Time Signature Hemoglobin 15.2 13.2 - 08/16/2018 [facility] 16.6 g/dL 8:21 AM CDT LABORATORIES [facility] Hematocrit 44.7 38.3 - 08/16/2018 [facility] 48.6 % 8:21 AM CDT [facility] - [facility] Erythrocytes 4.99 4.35 - 08/16/2018 [facility] 5.65 8:21 AM CDT LABORATORIES - x10(12)/L [facility] MCV 89.6 78.2 - 08/16/2018 [facility] 97.9 fL 8:21 AM CDT [facility] - [facility] RBC Distrib Width 14.1 11.8 - 08/16/2018 [facility] 14.5 % 8:21 AM CDT [facility] - [facility] Platelet Count 231 135 - 317 08/16/2018 [facility] x10(9)/L 8:21 AM CDT [facility] - [facility] Leukocytes 8.1 3.4 - 9.6 08/16/2018 [facility] x10(9)/L 8:21 AM CDT [facility] - [facility] Neutrophils 5.20 1.56 - 08/16/2018 [facility] 6.45 8:21 AM CDT LABORATORIES - x10(9)/L [facility] Lymphocytes 2.03 0.95 - 08/16/2018 [facility] 3.07 8:21 AM CDT LABORATORIES - x10(9)/L [facility] Monocytes 0.60 0.26 - 08/16/2018 [facility] 0.81 8:21 AM CDT LABORATORIES - x10(9)/L [facility] Eosinophils 0.20 0.03 - 08/16/2018 [facility] 0.48 8:21 AM CDT LABORATORIES - x10(9)/L [facility] Basophils 0.04 0.01 - 08/16/2018 [facility] 0.08 8:21 AM CDT LABORATORIES - x10(9)/L [facility] Specimen Anatomical Collection Method Collection Time Receive d Time (Source) Location / / Volume Laterality Blood (Blood, 08/16/2018 7:44 AM 08/17/19 19 8:16 Venous) CDT AM CDT Tom Johnson M.D., Ph.D. LAB BLOOD ADD-ON Performing Organization Address City/State/ZIP Code Phon e Number [facility] LABORATORIES - [address] [place], [place] [address] [facility] (ABNORMAL) Troponin T, 6H, 5th Gen (08/15/2018 12:37 PM CDT) Patholo gist Method Time Signature Troponin T, 6 433 (H) <=15 ng/L 08/15/2018 [facility] hr, 5th gen 1:09 PM CDT [facility] Comment: Consider acute myocardial injur y 6H Delta 127 ng/L 08/15/2018 1:09 PM CDT [facility] - [facility] 6H Delta Interp Changing 08/15/2018 1:09 PM CDT [facility] Comment: Evaluate for acute myocardial i njury Specimen Anatomical Collection Method Collection Time Receive d Time (Source) Location / / Volume Laterality Blood 08/15/2018 12:37 08/15/2018 PM CDT 12:43 PM CDT Darvin Corral M.D. LAB BLOOD TROPONIN Performing Organization Address [facility] Phon e Number [facility] - [address] Heparin Anti-Xa Assay (08/15/2018 11:00 AM CDT) P athologist Signature Heparin 1.62 IU/mL 08/15/2018 [facility] Anti-Xa, P 12:53 PM CDT [facility] Comment: UFH therapeutic range: ?? 0.30-0.70 IU/mL [...] LAB BLOOD NON ADD-ON Performing Organization Address [facility] Phon e Number [facility]ORATORIES - [address] CORONARY ANGIOGRAPHY, STENT PLACEMENT, PERCUTANEOUS CORONARY ANGIOPLASTY [...] ST Clotting Time, sec 9:41 AM CDT [facility] POCT INPATIENT LABS Specimen Anatomical Collection Method Collection Time Receive d Time (Source) Location / / Volume Laterality Blood 08/15/2018 9:35 AM 9 9:41 CDT AM CDT Unknown Provider LAB POCT ORDERABLES - DEVICE Performing Organization Address City/[facility]/ZIP Code Phon e Number POC RST [facility] INPATIENT LABS [address] [address] (ABNORMAL) ACT (Activated Clotting Time), POCT (08/15/2018 9:14 AM CDT) P athologist Signature Activated 168 (H) 84 - 139 08/15/[address] Clotting Time, sec 9:18 AM CDT [facility] POCT INPATIENT LABS Specimen Anatomical Collection Method Collection Time Receive d Time (Source) Location / / Volume Laterality Blood 08/15/2018 9:14 AM 9 9:18 CDT AM CDT Unknown Provider LAB POCT ORDERABLES - DEVICE Performing Organization Address City/[facility]/ZIP Code Phon e Number POC RST [facility] INPATIENT LABS [address] [address] Bilirubin, Direct (08/15/2018 6:00 AM CDT) P athologist Signature Bilirubin, 0.2 0.0 - 0.3 08/15/2018 [facility] Direct, S mg/dL 8:25 AM CDT LABORATORIES [facility] Specimen Anatomical Collection Method Collection Time Receive d Time (Source) Location / / Volume Laterality Blood (Blood, 08/15/2018 6:00 AM 08/16/19 19 6:20 Venous) CDT AM CDT Vaughn Rader M.D., Ph.D. LAB BLOOD ADD-ON Performing Organization Address City/State/ZIP Code Phon e Number [facility] LABORATORIES - [address] [place], [place] [address] [facility] (ABNORMAL) Comprehensive Metabolic Panel (08/15/2018 6:00 AM CDT) Analysis Performed At Patho logist Time Signature Potassium, S 4.5 3.6 - 5.2 08/15/2018 [facility] mmol/L 8:25 AM CDT [facility] - [facility] Sodium, S 144 135 - 145 08/15/2018 [facility] mmol/L 8:25 AM CDT [facility] - [facility] Chloride, S 102 98 - 107 08/15/2018 [facility] mmol/L 8:25 AM CDT [facility] - [facility] Bicarbonate, S 24 22 - 29 08/15/2018 [facility] mmol/L 8:25 AM CDT [facility] - [facility] Anion Gap 18 (H) 7 - 15 08/15/2018 [facility] 8:25 AM CDT [facility] - [facility] BUN (Blood 14 8 - 24 08/15/2018 [facility] Urea mg/dL 8:25 AM CDT LABORATORIES - Nitrogen), S [facility] Creatinine, S 1.14 0.74 - 08/15/2018 [facility] 1.35 mg/dL 8:25 AM CDT LABORATORIES [facility] eGFR-Non 62 >=60 08/15/2018 [facility] Black/ mL/min/BSA 8:25 AM CDT LABORATORIES - [facility] Comment: ----ADDITIONAL INFORMATION---- Estimated GFR calculated using the 2009 CKD_EPI creatinine equation. eGFR-Black/ 71 >=60 mL/min/BSA 08/15/2018 8:25 [facility] Cameroonian AM CDT LABORATORIES [facility] Comment: ----ADDITIONAL INFORMATION---- Estimated GFR calculated using the 2009 CKD_EPI creatinine equation. Calcium, Total, S 9.6 8.8 - 10.2 08/15/2018 8:25 [facility] mg/dL AM CDT [facility] Glucose, S 102 70 - 140 08/15/2018 8:25 [facility] mg/dL AM CDT [facility] Protein, Total, S 6.4 6.3 - 7.9 08/15/2018 8:25 [facility] LINIC g/dL AM CDT [facility] Albumin, S 4.3 3.5 - 5.0 08/15/2018 8:25 [facility] g/dL AM CDT [facility] Aspartate 62 (H) 8 - 48 U/L 08/15/2018 8:25 [facility] Aminotransferase (AST), AM CDT LABORA TORIES - S [facility] Alkaline Phosphatase, S 142 (H) 40 - 129 U/L 08/15/2018 8: 25 [facility] AM CDT [facility] Alanine Aminotransferase 25 7 - 55 U/L 08/15/2018 8:2 5 [facility] (ALT), S AM CDT [facility] Bilirubin, Total, S 1.2 <=1.2 mg/dL 08/15/2018 8:25 [facility] AM CDT [facility] Specimen Anatomical Collection Method Collection Time Receive d Time (Source) Location / / Volume Laterality Blood (Blood, 08/15/2018 6:00 AM 08/16/19 19 6:20 Venous) CDT AM CDT Vaguhn Rader M.D., Ph.D. LAB BLOOD ADD-ON Performing Organization Address City/State/ZIP Code Phon e Number [facility] - [address] [place], [place] [address] [facility] (ABNORMAL) Troponin T, 2H/6H, 5th Gen (08/15/2018 6:00 AM CDT) [facility] Method Time Signature Troponin T, 2 366 (H) <=15 ng/L 08/15/2018 [facility] hr, 5th gen 6:38 AM CDT [facility] Comment: Consider acute myocardial injur y 2H Delta 60 ng/L 08/15/2018 6:38 AM CDT [facility] 2H Delta Interp Changing 08/15/2018 6:38 AM CDT [facility] Comment: Evaluate for acute myocardial i njury Troponin T, 6 hr, 5th CANCELED ng/L 08/15/2018 11: 23 AM [facility] LABORATORIES gen CDT - [facility] Comment: Hemolyzed redraw requested Result canceled by the ancillary Specimen Anatomical Collection Method Collection Time Receive d Time (Source) Location / / Volume Laterality Blood (Blood, 08/15/2018 6:00 AM 08/16/19 19 6:07 Venous) CDT AM CDT Narrative [facility] - 08/15/2018 11:25 AM CDT Specimen Information: Specimen ID: [id number] Specimen Type: Blood Specimen Collection Start Date: 08/16/19 ??6:00 AM Specimen Received Date: 08/15/2018 ??6:0 7 AM Specimen ID: [id number] Specimen Type: Blood Specimen Collection Start Date: 08/16/19 11:00 AM Specimen Received Date: 08/15/2018 11:08 AM Vaughn Rader M.D., Ph.D. LAB BLOOD TROPONIN Performing Organization Address City/State/ZIP Code Phon e Number [facility] LABORATORIES - [address] (ABNORMAL) Troponin T, Baseline, 5th gen (08/15/2018 4:23 AM CDT) Patholo gist Method Time Signature Troponin T, 306 (H) <=15 ng/L 08/15/2018 [facility] Baseline, 5th 4:50 AM CDT LABORATORIES - gen [facility] Comment: Consider acute myocardial injur y Specimen Anatomical Collection Method Collection Time Receive d Time (Source) Location / / Volume Laterality Blood (Blood, 08/15/2018 4:23 AM 08/16/19 19 4:29 Venous) CDT AM CDT Vaughn Rader M.D., Ph.D. LAB BLOOD TROPONIN Performing Organization Address City/State/ZIP Code Phon e Number [facility] LABORATORIES - [address] APTT (Activated Partial Thromboplastin Time) (08/15/2018 4:04 AM CDT) P athologist Signature Activated 35 25 - 37 08/15/2018 [facility] Partial sec 4:48 AM CDT LABORATORIES - [facility] Specimen Anatomical Collection Method Collection Time Receive d Time (Source) Location / / Volume Laterality Blood (Blood, 08/15/2018 4:04 AM 08/16/19 4:38 Venous) CDT AM CDT Vaughn Rader M.D., Ph.D. LAB BLOOD ADD-ON Performing Organization Address City/State/ZIP Code Phon e Number [facility]IES - [address] [place], [place] [address] [facility] documented in this encounter Visit Diagnoses Diagnosis Non-ST Elevation Myocardial Infarction ( HCC) - Primary Non-ST Elevation Myocardial Infarction ( HCC) documented in this encounter Admitting Diagnoses Diagnosis Non-ST Elevation Myocardial Infarction ( HCC) documented in this encounter Administered Medications Inactive Administered Medications - up to 3 most recent administrations Medication Order MAR Action Action Date Dose Rate Site aspirin chewable tablet Given 08/15/2018 8:56 AM CDT 243 mg As needed, Starting on 08/15/18 at 0856, Intraprocedure (CV) aspirin DR tablet 81 mg Given 08/16/2018 [...] Given 08/15/2018 8:18 AM CDT 10 mg fentaNYL injection 50 mcg (SUBLIMAZE) Given 08/15/2018 9:40 AM CDT 25 mcg 50 mcg, intravenous, Every 2 min PRN, moderate pain or score 4-6 of 10, severe [...] respiratory rate is less than 8 breaths/minute Given 08/15/2018 9:06 AM CDT 25 mcg Given 08/15/2018 8:56 AM CDT 50 mcg heparin (porcine) 1,000 unit/mL Given 08/15/2018 9:27 AM CDT 5,0 00 Units injection As needed, Starting on 08/15/18 at 0927, Intraprocedure (CV) iohexol 350 mg iodine/mL solution (OMNIP AQUE) Given 08/15/2018 9:48 AM CDT 110 mL As needed, Starting on 08/15/18 at 0948, Intraprocedure (CV) lidocaine 10 mg/mL (1 %) injection Given 08/15/2018 9:01 AM CDT 2 mL Right Wrist (XYLOCAINE) As needed, Starting on 08/15/18 at 0901, Intraprocedure (CV) metoprolol succinate 24 hr tablet 12.5 mg Given 08/16/2018 8:15 AM CDT 12.5 mg (TOPROL-XL) 12.5 mg, oral, Daily, First dose on 08/15/18 at 0900, Do NOT crush or chew. Given 08/15/2018 8:18 AM CDT 12.5 mg midazolam (PF) injection 0.5 mg (VERSED) Given 08/15/2018 8:57 AM CDT 0.5 mg 0.5 mg, intravenous, Once as needed, sedation, Starting on 08/15/18 at 0850, For 1 dose, Intraprocedure (CV) midazolam (PF) injection 0.5 mg (VERSED) Given 08/15/2018 9:29 AM CDT 0.5 mg 0.5 mg, intravenous, Every 2 min PRN, sedation, RASS -1, Starting on 08/15/18 at 0850, Intraprocedure (CV), May repeat every 2 minutes for a maximum of 5 mg. Do not give if respiratory rate is less than 8 breaths/minute. NaCl 0.9% infusion 10-250 mL/hr, intravenous, As [...] until tubing cleared of medication, then discard. nitroglycerin in D5W 100 mcg/mL syringe (for Given 9:46 AM CDT 200 mcg intra-arterial use only) As needed, Starting on 08/15/18 at 0946, [...] Given 08/15/2018 6:52 AM CDT 40 mg verapamil injection (ISOPTIN) Given 08/15/2018 9:10 AM CDT 3 mg As needed, Starting on 08/15/18 at 0910, Intraprocedure (CV) documented in this encounter Active and Recently [...] (LIPITOR) 0818 (Given - Provider: Kody Restrepo R.N.)0846 (MAR Hold - Provider: Transfer Provider, Automatic - Reason: Patient not available)1048 (MAR Unhold - Provider: Transfer Provider, Automatic) 0815 (Given - Provider: Kody Restrepo R.N.) 80 mg, oral, Every morning, First [...] (COMPL ETED) 0439 (Given - Provider: Shade Blue RLaraNLara) 3,900 Units (rounded from 3,912 Units = 60 Units/kg ? 65.2 kg Dosing weight), intravenous, Once, On 08/15/18 at 0400, For 1 dose, Initial Loading Dose, Intensity type: Moderate metoprolol succinate 24 hr tablet 12.5 mg (TOPROL-XL) 0818 (Given - Provider: Kody Restrepo R.N.)0846 (MAR Hold - Provider: Transfer Provider, [...] Automatic) 0815 (Given - Provider: Kody Restrepo RLaraNLara) 40 mg, oral, Daily before breakfast, Fir st dose on 08/15/18 at 0700, pantoprazole 40 mg oral daily was interchanged for omeprazole 20 or 40 mg oral daily Swallow whole. Do NOT crush, chew, or split tablet. Continuous Medication Order 08/14/2018 08/15/2018 08/16/2018 heparin (porcine) 100 Units/mL in D5W 250 mL infusion (CANCE LED) 0442 (New Bag - Provider: Shade Blue R.N.)0700 (Rate/Dose Verify - Provider: Kody Restrepo R.N.)0902 (Stopped - Provider: eHrbie Brady R.N.) 0-40 Units/kg/hr ? 65.2 kg Dosing weight [...] unit/mL injection (CANCELED) 0927 (Given - Provider: Angella SaldañaNLara) As needed, Starting on 08/15/18 at 0927, [...] mg (VERSED) (COMPLETED) 0857 (Given - Provider: Jorge Saldaña.NLara) 0.5 mg, intravenous, Once as needed, sed ation, Starting on 08/15/18 at 0850, For 1 dose, Intraprocedure (CV) midazolam (PF) injection 0.5 mg (VERSED) (CANCELED) 0929 (Given - Provider: Herbie Brady R.NLara) 0.5 [...] with maintenance fluid. NaCl 0.9% infusion 0846 ([facility] Hold - Pro vider: Transfer Provider, Automatic - Reason: Patient not available)1048 ([facility] Unhold - Provider: Transfer Provider, Automatic) 10-250 mL/hr, intravenous, As needed, Po st Medications (Hazardous/Low Fluid Volume), Starting on 08/15/18 at 0234, Infuse at the same rate as the medication until tubing cleared of medication, then discard. NaCl 0.9% infusion (COMPLETED) 0902 (New Bag - P rovider: Herbie Brady R.NLara) 20 mL/hr, intravenous, Once as needed, t o keep vein open, Starting on 08/15/18 at 0850, For 1 dose, Intraprocedure (CV) nitroglycerin in D5W 100 mcg/mL syringe (for intra-arterial use only) (CANCELED) 0946 (Given - Provider: Rodger Murrieta) As needed, Starting on 08/15/18 at 0946, Intraprocedure (CV) nitroglycerin SL tablet 0.4 mg (NITROSTAT) 0846 ([facility] Hold - Provider: Transfer Provider, Automatic - Reason: Patient not available)1048 ([facility] Unhold - Provider: Transfer Provider, [...]
--- OUTSIDE RECORDS SUMMARY | 2021-12-17 09:48 | XMS_ITS | Encounter Summary ---
:1940 Author Organization [facility] Address [address] [place] [address] Care Team Providers Name Role Phone Unavailable Primary Care Provider Unavailable Encounter Details Date Type Department Care Team Description 06/30/2017 Telemedicine Department of Ophthalmology Social History Tobacco Use Types Packs/Day Years [...]
--- OUTSIDE RECORDS SUMMARY | 2021-12-17 09:48 | XMS_ITS | Encounter Summary ---
:1940 Author Organization [facility] Address [address] [place] [address] Care Team Providers Name Role Phone Unavailable Primary Care Provider Unavailable Encounter Details Date Type Department Care Team Description 07/21/2017 [facility] Raymundo Muniz, [address] [place], [place] [address] Marisela [place], [place] [address] [place], [place] [address] [place], [place] [phone] (Wo rk) Social History Tobacco Use [...] from the original note were not included. [facility] Cataract/Trabeculectomy Discharge Instructions, Eye Care When you [...] (Month DD, YYYY) Time (hh:mm) Ophthalmology at [facility] Phone Numbers: Office: [phone] Toll Free: [phone]. [phone] ??2016 [facility] Emergency Department Medical Education and Research Page 1 of 2 [id number] When you leave the hospital after your [...] tartrate 0 06/23/201708/15 (for_LOPRESSOR) 25 mg tablet qyqsfixqjrxu-fwrpwdiz-vy Take 1 tablet by 0 06/2508/15/2018 rrous [...] Raymundo Muniz M.D. - 07/07/2017 9:35 AM CLASS A [facility] History of present illness: The patient is [...] Implant Name Type Inv. Item Serial No. [employer] Lot No. LRB No. Used Action [id number] Ocular Lens [id number] Ann Left 1 Implanted Raymundo Muniz M.D. 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 Apply at least 30 minutes prior to case tetracaine (PF) 0.5 % ophthalmic Given 07/21/2017 [...] (for_ALTACAINE) 0747 (Given - Provider: Rose Bradford R.N.)0750 (Given - Provider: Rose Bradford R.N.)0753 (Given - Provider: Rose Bradford R.N.)0815 (Due) 1 drop, left eye, Every 5 [...] M.D.) As needed, Starting on Fri07/21/17 at 09, Intra-Op povidone-iodine 5 % ophthalmic solution (for_BETADINE) (CANCELED ) 912 (Given - Provider: Raymundo Muniz M.D.) As needed, Starting on Fri07/21/17 at 0913, Intra-Op documented in this encounter Additional Health Concerns Assessment Noted Time PHQ-9 Depression Total Score: 2 03/08/2015 11:16 AM CS T documented as of this encounter
--- OUTSIDE RECORDS SUMMARY | 2021-12-17 09:48 | XMS_ITS | Encounter Summary ---
:1940 Author Organization [facility] Address [address] [place] [address] Care Team Providers Name Role Phone Unavailable Primary Care Provider Unavailable Reason for Visit Reason Comments Dizziness Pt presents with complaint o f dizziness. Pt states it started around 1800 today. Denies cp,sob,nausea during episode. Pt took 1 nitrostat around 1820. Pt states his dizzines s has resolved now. Pt reports cold symptoms for 3 weeks. Encounter Details Date Type Department Care Team Description 07/03/2018 Emergency [facility] Isiah Hart D izziness (Primary Dx); Department [facility]; [address] [place] [address] [place] [phone] Social History Tobacco Use Types Packs/Day Years Used Date Smoking Tobacco: Former Smokeless Tobacco: Never Alcohol Use Standard Drinks/Week Comments No 0 (1 standard drink = 0.6 oz pure alcoho l) Sex Assigned at Date Recorded Not on file documented as of this encounter Last Filed Vital Signs Vital Sign Reading Time Taken Comments Blood Pressure 117/70 07/03/2018 10:30 PM FITTER WELDER Pulse 57 07/03/2018 11:00 PM FITTER WELDER Temperature - - Respiratory Rate 20 07/03/2018 11:00 PM FITTER WELDER Oxygen Saturation 93% 07/03/2018 11:00 PM FITTER WELDER Inhaled Oxygen Concentration - - Weight 67.1 kg (148 lb) 07/03/2018 8:28 PM FITTER WELDER Height - - Body Mass Index 23.79 06/25/2016 8:20 AM FITTER WELDER documented in this encounter Discharge Instructions AttachmentsThe following attachments cannot be sent through Care Everywhere. Dehydration Adult (Estonian)documented in this encounter Medications at Time of [...] 01/09/2010 D3/MINERALS mouth daily. (CALCIUM-VITAMIN D ORAL) metoprolol succinate Take 0.5 tablets by 0 201408/16/2018 (for_TOPROL-XL) 12.5 mg mouth daily. Patient 24 hr tablet confirmed he was taking 0.5 tablet 1xday, however, Rx fill history suggests that it was the tartrate formulation. psxyufyfkrwp-mgkvdfvu-brp Take 1 tablet by 0 06/0608/15/2018 ifrah gluconate mouth daily. (MULTIVITAMIN WITH MINERALS) 9 mg iron/[address] 1 tablet under 0 06/25/2016 0 11/30/2021 (for_NITROSTAT) 0.4 mg SL the tongue every 5 tablet (five) minutes as needed for chest pain. omeprazole (for_PriLOSEC) 0 01/27/2017 08/15/2018 20 mg capsule metFORMIN (GLUCOPHAGE) Take 1-2 tablets by 0 08/05/201301/21/2020 500 mg tablet mouth 2 (two) times a day. metoprolol tartrate 0 06/23/201708/15 (for_LOPRESSOR) 25 mg tablet omeprazole (PriLOSEC) 20 Take 1 capsule by 0 09/0308/16/[address] capsule mouth daily. documented as of this encounter ED Notes Isiah Hart M.D. - 07/03/2018 9:02 PM CST SUBJECTIVE CHIEF COMPLAINT/REASON FOR VISIT Dizziness (Pt presents with complaint of dizziness. Pt states it started around 1800 today. Denies cp,sob,nausea during episode. Pt took 1 nitrostat around 1820. Pt states his dizziness has resolved now. Pt reports cold symptoms for 3 weeks.) HISTORY OF PRESENT ILLNESS Patient is a 78-year-old male with a history of coronary artery disease status post [place] and stent placement in 2011, as well as a history of ischemic stroke status post carotid endarterectomy in the more remote past, who presents for evaluation of dizziness. Symptom occurred earlier this evening, occurred only once, was relatively severe dizziness for him and describes as lightheadedness. He has had arecent upper respiratory infection. Reports that his urine lately has been more darker than normal and he has been feeling relatively dehydrated. He does not drink any water, but just drinks soda and coffee. He is having no chest pain with this episode, and there were no focal neurologic deficits thathe is aware of. After the episode of dizziness the patient did take 1 of his p.r.n. nitroglycerin tablets at home which led to hypotension with systolic blood pressure down into the 90s, as it was checked on a home blood pressure monitor. He called the nurse line who instructed him to present to the local emergency department for further evaluation. By the time he arrived in our emergency department he was symptom free, ambulatory, pleasant and conversational. Vital signs normal on presentation. He had a very mild amount of nausea that was associated with this episode of dizziness, but no emesis. He has had no diarrhea or constipation lately. His upper respiratory infection has been associatedwith rhinorrhea and mild coughing. No fevers or chills. No chest pain or shortness of breath. No focal neurologic deficits. No syncope. 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 12/19/2011: CORONARY ANGIOPLASTY WITH STENT PLACEMENT; N/A Comment: >1. Percutaneous coronary intervention with drug-eluting stent following a lytics for STEMI (lytics 10/17/2006: DECOMPRESSION OF MEDIAN NERVE; N/A Comment: Carpal tunnel release 07/07/2017: EXTRACTION CATARACT WITH INSERTION INTRAOCULAR LENS; Right Comment: Procedure: EXTRACTION CATARACT WITH INSERTION INTRAOCULAR LENS; Surgeon: Raymundo Muniz M.D.; Location: [facility] OR 07/21/2017: EXTRACTION CATARACT WITH INSERTION INTRAOCULAR LENS; Left Comment: Procedure: EXTRACTION CATARACT WITH INSERTION INTRAOCULAR LENS; Surgeon: Raymundo Muniz M.D.; Location: [facility] OR 06/23/2006: MOHS SURGERY; N/A Comment: >Mohs Micrographic Surgery With Layered Closure. 08/21/1999: OTHER SURGICAL HISTORY; N/A Comment: Endarterectomy and angioplasty of neck artery Current Outpatient Medications: aspirin 0.1 mg capsule, aspirin 81 mg oral tablet See Instructions, Take by mouth daily. atorvastatin (for_LIPITOR) 80 mg tablet, CALCIUM CARB/VIT D3/MINERALS (CALCIUM-VITAMIN D ORAL), Take by mouth daily. metoprolol succinate (for_TOPROL-XL) 12.5 mg 24 hr tablet, Take 0.5 tablets by mouth daily. dblqpvnnclsg-srtahcjb-gveyvoh gluconate (MULTIVITAMIN WITH MINERALS) 9 mg iron/15 mL liquid, Take 1 tablet by mouth daily. nitroglycerin (for_NITROSTAT) 0.4 mg SL tablet, Place 1 tablet under the tongue every 5 (five) minutes as needed. omeprazole (for_PriLOSEC) 20 mg capsule, ZETIA 10 mg tablet, metoprolol tartrate (for_LOPRESSOR) 25 mg tablet, omeprazole (PriLOSEC) 20 mg capsule, Take 1 capsule by mouth daily. Social History Marital status: Spouse name: Years of education: Number of children: Social History Main Topics Smoking status: Former Smoker Packs/day: 0.00 Years: 0.00 Smokeless tobacco: Never Used Alcohol use: No Drug use: Defer Sexual activity: Defer No Known Allergies Review of patient's family history indicates: Problem: Blindness Relation: Mother Age of Onset: (Not Specified) Problem: Cataracts Relation: Mother Age of Onset: (Not Specified) Problem: Glaucoma Relation: Mother Age of Onset: (Not Specified) Problem: Macular degeneration Relation: Mother Age of Onset: (Not Specified) Problem: Anesthesia problems Relation: Neg Hx Age of Onset: (Not Specified) REVIEW OF SYSTEMS All other systems reviewed and are negative. OBJECTIVE Initial Vitals [07/03/182035] Temp Pulse Heart Rate Resp Rate BP SpO2 -- -- 68 18 -- -- Pain Score -- PHYSICAL EXAMINATION Constitutional: He appears well-developed and well-nourished. No distress. HENT: Head: Normocephalic and atraumatic. Nose: No nasal discharge. Mouth/Throat: Mucous membranes are dry. Eyes: EOM are normal. Pupils are equal, round, and reactive to light. Neck: Normal range of motion. Neck supple. Cardiovascular: Normal rate, regular rhythm and normal heart sounds. Exam reveals no gallop and no friction rub. No murmur heard.Capillary refill: takes less than 3 seconds, Pulmonary/Chest: Effort normal and breath sounds normal. There is normal air entry. No respiratory distress. He has no wheezes. He has no rhonchi. He has no rales. Abdominal: Soft. He exhibits no distension. There is no tenderness. Musculoskeletal: Normal range of motion. He exhibits no edema, tenderness or deformity. Neurological: He is alert and oriented to person, place, and time. Skin: Skin is warm and dry. He is not diaphoretic. Decreased skin turgor Psychiatric: He has a normal mood and affect. His behavior is normal. Judgment and thought content normal. ASSESSMENT/PLAN Impression and Plan This patient is presenting with dizziness which has resolved by the time of arrival to the emergencydepartment. I do think given his significant past medical history that we should perform at least a basic workup with a cardiac rule out and a short period of observation in the emergency department. Ithink the most likely cause of his symptoms is mild hypovolemia related to a recent upper respiratory infection and mild dehydration. He also has had hypokalemia and hypocalcemia in the past, so this will be checked as well. At this time the patient has normal vital signs, and he can drink clear liquids, so will encourage oral hydration. Will workup with labs, UA, and EKG. No symptoms at this time so no further treatment is required. EKG - normal sinus rhythm with occasional PVC UA - negative CRP - negative CBC and electrolytes - within normal limits. Workup negative. I do feel that the patient is at least mildly dehydrated given somewhat dry mouth and decreased skin turgor as well as a history of minimal p.o. water intake. The patient has rehydrated by mouth with water intake in the emergency department and has been stable during a 2 hr period of observation. He is safe for discharge to the ambulatory setting, and will return if symptoms return or worsen. He can follow up with his primary care provider on a p.r.n. basis. This was all discussed with the patient, all questions were answered, and he is in agreement. Final Diagnoses: as of Jul 03 2241 Dizziness Lightheadedness Dehydration Isiah Hart M.D. Resident 07/03/182245 ER WELDER documented in this encounter Plan of Treatment Not on filedocumented as of this encounter Procedures Procedure Name Priority Date/Time Associated Comments Diagnosis URINALYSIS WITH STAT 07/03/2018 9:59 PM Result s for this MICROSCOPIC FITTER WELDER procedure are i n the results section. CBC WITH STAT 07/03/2018 9:42 PM Results f or this DIFFERENTIAL, B FITTER WELDER procedure ar e in the results section. C-REACTIVE PROTEIN STAT 07/03/2018 9:42 PM Res ults for this (CRP), S/P FITTER WELDER procedure are i n the results section. TROPONIN T, 5TH GEN, STAT 07/03/2018 9:42 PM R esults for this P FITTER WELDER procedure are i n the results section. BASIC METABOLIC STAT 07/03/2018 9:42 PM Result s for this PANEL, S/P FITTER WELDER procedure are i n the results section. ECG STAT 07/03/2018 8:55 PM Results f or this FITTER WELDER procedure are i n the results section. documented in this encounter Results (ABNORMAL) Urinalysis with Microscopic (midstream) (07/03/2018 9:59 PM FITTER WELDER) athologist Signature Source Midstream 07/03/2018 [facility] 10:[address] [facility] Clarity Clear Clear 07/03/2018 [facility] 10:06 PM [facility] Color Yellow 07/03/2018 [facility] 10:06 PM [facility] Comment: ----REFERENCE VALUE---- Colorless Yellow Isabel Blood Negative Negative 07/03/2018 10:06 PM [facility] Nitrite Negative Negative 07/03/2018 10:06 PM [facility] Leukocyte Esterase Trace (A) Negative 07/03/2018 10:[address] [facility] Protein Negative mg/dL 07/03/2018 10:06 PM [facility] Comment: ----REFERENCE VALUE---- Negative Trace Glucose Negative Negative mg/dL 07/03/2018 10:06 PM [facility] Ketones, QI(U) Negative Negative mg/dL 07/03/2018 10:06 PM [facility] Bilirubin Negative Negative 07/03/2018 10:[address] [facility] pH 6.0 5.0 - 8.0 07/03/2018 10:[address] [facility] Specific [place] 1.010 1.001 - 1.035 07/03/2018 10:06 PM [facility] Urobilinogen 0.2 0.2 - 1.0 mg/dL 07/03/2018 10:06 PM [facility] White Blood Cells Occ-3 /hpf 07/03/2018 10:[address] [facility] Comment: ----REFERENCE VALUE---- Males: 0-3 Females: 0-10 Unknown: 0-10 Red Blood Cells None Seen 0 - 2 /hpf 07/03/2018 10:09 PM [facility] Dysmorphic Red Blood <=25 <=25 % 07/03/2018 10:09 PM [facility] Hyaline Casts Occasional /lpf 07/03/2018 10:09 PM [facility] Specimen Anatomical Collection Method Collection Time Receive d Time (Source) Location / / Volume Laterality Urine (Urine, 07/03/2018 9:59 PM 07/04/19 19 9:59 Midstream) [facility] FITTER WELDER Isiah Hart M.D. LAB URINE ORDERABLES Performing Organization Address City/State/ZIP Code Phon e Number [address] [id number] [facility] Troponin T, 5th Generation (07/03/2018 9:42 PM FITTER WELDER) athologist [facility] Troponin T, 5th 8 <=15 ng/L 07/03/2018 [facility] gen 10:02 PM [facility] Comment: Biotin has been identified by the donte [place] as a potential interfering substance. ??Higher concentr ations of biotin may be found in multivitamins, hair/nail supple ments, and workout supplements. ??If the result does not ma [facility] clinical observations, repeat testing after patient refrains fr om the use of supplements for at least 12 hours. Specimen Anatomical Collection Method Collection Time Receive d Time (Source) Location / / Volume Laterality Blood (Blood, 07/03/2018 9:42 PM 07/04/19 9:44 Venous) FITTER WELDER PM FITTER WELDER Isiah Hart M.D. LAB BLOOD ADD-ON Performing Organization Address City/[facility]/ZIP Code Phon e Number [address] [address] [facility] CRP (C-Reactive Protein) (07/03/2018 9:42 PM FITTER WELDER) athologist [facility] C-Reactive 0.9 <=8.0 mg/L 07/03/2018 [facility] Protein (CRP), 10:07 PM [facility] Specimen Anatomical Collection Method Collection Time Receive d Time (Source) Location / / Volume Laterality Blood (Blood, 07/03/2018 9:42 PM 07/04/19 9:44 Venous) FITTER WELDER PM FITTER WELDER Isiah Hart M.D. LAB BLOOD ADD-ON Performing Organization Address City/State/ZIP Code Phon e Number [address] [address] [facility] CBC with Differential (07/03/2018 9:42 PM FITTER WELDER) athologist Signature Hemoglobin 14.4 13.2 - 07/03/2018 [facility] 16.6 g/dL 9:47 PM [facility] Hematocrit 43.2 38.3 - 07/03/2018 [facility] 48.6 % 9:[address] [facility] Erythrocytes 4.70 4.35 - 07/03/2018 [facility] 5.65 9:47 PM [facility] x10(12)/L [facility] MCV 91.9 78.2 - 07/03/2018 [facility] 97.9 fL 9:47 PM [facility] RBC Distrib Width 14.3 11.8 - 07/03/2018 [facility] 14.5 % 9:47 PM [facility] Platelet Count 202 135 - 317 07/03/2018 [facility] x10(9)/L 9:47 PM [facility] Leukocytes 8.2 3.4 - 9.6 07/03/2018 [facility] x10(9)/L 9:47 PM [facility] Neutrophils 5.79 1.56 - 07/03/2018 [facility] 6.45 9:47 PM [facility] x10(9)/L [facility] Lymphocytes 1.54 0.95 - 07/03/2018 [facility] 3.07 9:47 PM [facility] x10(9)/L [facility] Monocytes 0.55 0.26 - 07/03/2018 [facility] 0.81 9:47 PM [facility] x10(9)/L [facility] Eosinophils 0.27 0.03 - 07/03/2018 [facility] 0.48 9:47 PM [facility] x10(9)/L [facility] Basophils 0.02 0.01 - 07/03/2018 [facility] 0.08 9:47 PM [facility] x10(9)/L [facility] Specimen Anatomical Collection Method Collection Time Receive d Time (Source) Location / / Volume Laterality Blood (Blood, 07/03/2018 9:42 PM 07/04/19 19 9:44 Venous) FITTER WELDER PM FITTER WELDER Isiah Hart M.D. LAB BLOOD ADD-ON Performing Organization Address City/State/ZIP Code Phon e Number [facility]- [id number] [place] [phone] [facility] BMP (Basic Metabolic Panel) (07/03/2018 9:42 PM FITTER WELDER) P athologist Signature Potassium, P 4.5 3.6 - 5.2 07/03/2018 [facility] mmol/L 10:[address] [facility] Sodium, P 140 135 - 145 07/03/2018 [facility] mmol/L 10:12 PM [facility] Chloride, P 103 98 - 107 07/03/2018 [facility] mmol/L 10:12 PM [facility] Bicarbonate, P 25 22 - 29 07/03/2018 [facility] mmol/L 10:13 PM [facility] Anion Gap, P 12 7 - 15 07/03/2018 [facility] 10:12 PM [facility] BUN (Blood Urea 16 8 - 24 07/03/2018 [facility] Nitrogen), P mg/dL 10:[address] [facility] Creatinine, P 1.02 0.74 - 07/03/2018 [facility] 1.35 mg/dL 10:[address] [facility] eGFR-Black/Afri 82 >=60 07/03/2018 [facility] can Armenian mL/min/BSA 10:13 PM [facility] Comment: ----ADDITIONAL INFORMATION---- Estimated GFR calculated using the 2009 CKD_EPI creatinine equation. eGFR Non-Black/ 71 >=60 mL/min/BSA 07/03/2018 10:13 PM [facility] Armenian [facility] Comment: ----ADDITIONAL INFORMATION---- Estimated GFR calculated using the 2009 CKD_EPI creatinine equation. Calcium, Total, P 9.9 8.8 - 10.2 mg/dL 07/03/2018 1 0:[address] [facility] Glucose, P 126 70 - 140 mg/dL 07/03/2018 10:[address] [facility] Specimen Anatomical Collection Method Collection Time Receive d Time (Source) Location / / Volume Laterality Blood (Blood, 07/03/2018 9:42 PM 07/04/19 19 9:44 Venous) FITTER WELDER PM [facility] Isiah Hart M.D. LAB BLOOD ADD-ON Performing Organization Address City/State/ZIP Code Phon e Number [facility]- [id number] [address] [facility] ECG 12 Lead (STAT) (07/03/2018 8:55 PM FITTER WELDER) P athologist Signature Ventricular Rate 63 BPM MUSE ECG/Min [place] Interval 164 ms MUSE QRSD Interval 78 ms MUSE QT Interval 418 ms MUSE QTC Interval 427 ms MUSE P [place] 37 degrees MUSE T Wave [place] 39 degrees MUSE Specimen Anatomical Collection Method Collection Time Receive d Time (Source) Location / / Volume Laterality 07/03/2018 8:55 PM 9 9:01 FITTER WELDER PM FITTER WELDER Impressions MUSE - 07/03/2018 9:01 PM FITTER WELDER Sinus rhythm Premature ventricular complexes Cannot rule out Inferior infarct When compared with ECG of 01-APR-2017 13 :01, Premature ventricular complexes are now present Narrative This result has an attachment that is no t available. Procedure Note Elton Elder M.B.B.SLara - 019 IMPRESSION: Sinus rhythm Premature ventricular complexes Cannot rule out Inferior infarct When compared with ECG of 01-APR-2017 13 :01, Premature ventricular complexes are now present Isiah Hart M.D. ECG ORDERABLES Performing Organization Address City/State/ZIP Code Phon e Number MUSE MUSE NA documented in this encounter Visit Diagnoses Diagnosis Dizziness - Primary Lightheadedness Dehydration documented in this encounter Additional Health Concerns Assessment Noted Time PHQ-9 Depression Total Score: 2 03/08/2015 11:16 AM CS T documented as of this encounter
--- OUTSIDE RECORDS SUMMARY | 2021-12-17 09:48 | XMS_ITS | Encounter Summary ---
:1940 Author Organization [facility] Address [address] [place] [address] Care Team Providers Name Role Phone Unavailable Primary Care Provider Unavailable Encounter Details Date Type Department Care Team Description 08/01/2017 Abstract Department of Family Medicine, Provider, Historical [facility], in [place], [place] [address] [place] [address] Social History Tobacco Use Types Packs/Day [...]
--- OUTSIDE RECORDS SUMMARY | 2021-12-17 09:49 | XMS_ITS | Encounter Summary ---
:1940 Author Organization [facility] Address [address] [place] [address] Care Team Providers Name Role Phone Unavailable Primary Care Provider Unavailable Encounter Details Date Type Department Care Team Description 06/30/2017 Ancillary Procedure Department of [facility] in [place] Soares M.D[address] [phone] Social History Tobacco Use Types Packs/Day Years Used Date Smoking Tobacco: Former Smokeless Tobacco: Never Alcohol Use Standard Drinks/Week Comments No 0 (1 standard drink = 0.6 oz pure alcoho l) Sex Assigned at Date Recorded Not on file documented as of this encounter Plan of Treatment Not on filedocumented as of this encounter Procedures Procedure Name Priority Date/Time Associated Comments Diagnosis CORNEAL TOPOGRAPHY - Routine 06/30/2017 11:15 AM Cataract Eugenia le Results for this OU - BOTH EYES LIGHTER Nuclear Sclerosis procedur e are in Right the results Cataract Senile section. Nuclear Sclerosis Left documented in this encounter Results Corneal Topography - OU - Both Eyes (06/30/2017 11:15 AM LIGHTER) Specimen (Source) Anatomical Location Collection Method / Collectio n Time Received Time / Laterality Volume Narrative Raymundo Muniz M.D. - 08/15/2017 9: 49 AM CDT Topography device used is Pentacam. Right Eye Findings include normal observations. Left Eye Findings include normal observations. Raymundo Muniz M.D. OPHTH OTHER documented in this encounter Visit Diagnoses Not on filedocumented in this encounter Additional Health Concerns Assessment Noted Time PHQ-9 Depression Total Score: 2 03/08/2015 11:16 AM CS T documented as of this encounter
--- OUTSIDE RECORDS SUMMARY | 2021-12-17 09:49 | XMS_ITS | Encounter Summary ---
:1940 Author Organization [facility] Address [address] [place] [address] Care Team Providers Name Role Phone Unavailable Primary Care Provider Unavailable Encounter Details Date Type Department Care Team Description 03/23/2015 - Hospital Encounter [facility]X [facility] Ana Rosa English, 03/24/2015 ALEX Antonio [address] [place] [phone] Social History Tobacco Use Types Packs/Day Years Used Date Smoking Tobacco: Never Assessed Sex Assigned at Date Recorded Not on file documented as of this encounter Last Filed Vital Signs Vital Sign Reading Time Taken Comments Blood Pressure 134/82 03/24/2015 8:13 AM AUDIO VISUAL TECHNICIAN Pulse 105 03/24/2015 8:13 AM AUDIO VISUAL TECHNICIAN Temperature - - Respiratory Rate 16 03/24/2015 7:17 AM AUDIO VISUAL TECHNICIAN Oxygen Saturation - - Inhaled Oxygen Concentration - - Weight 70.5 kg (155 lb 6.8 oz) 03/24/2015 4:10 AM AUDIO VISUAL TECHNICIAN Height 167 cm (5' 5.75) 03/24/2015 8:13 AM AUDIO VISUAL TECHNICIAN Body Mass Index 25.28 03/24/2015 4:10 AM AUDIO VISUAL TECHNICIAN documented in this encounter Discharge Summaries Laine Day - 03/24/2015 12:26 PM CST Admission Date: 03/23/2015 Discharge Date: 03/24/2015 Allergy: Reviewed in chart PHYSICIAN's DISCHARGE / TRANSFER ORDERS DISCHARGE TO: -home MEDICATIONS: -Reviewed in chart PHARMACY CONSULT: no For discharge medications please see: Patient Discharge Instructions sheet from power chart Patient's prescription was printed off and handed to the patient ADMITTING DIAGNOSIS: -right shoulder OA DISCHARGE DIAGNOSIS: right reverse TSA SECONDARY DIAGNOSIS: - HOSPITAL COURSE: Patient was admitted s/p reverse TSA.Patient advanced and tolerated PT. Patient tolerated pain on oral pain medications. Patient was discharged when cleared from a medical, orthopedic,and PT standpoint. Discharge hemoglobin - reviewed in EMR Discharge exam - Aox3, NAD, CMS intact. Capillary refill less than 3 sec. Motor function intact. Wound healing appropriately. DIET: Regular, as at home CONDITION ON DISCHARGE: Satisfactory LEVEL OF ACTIVITY: Weight bearing: no weight bearing Right UE APPOINTMENTS: With Orthopedic Department at already scheduled date. REFERRALS: PT/OT OTHER ORDERS/COMMENTS: Aquacel for 5 days then patient to remove. Reverse TSA protocol and precautions PROCEDURE(S) PERFORMED: Right reverse TSA Time spent in discharging patient: less than 30 minutes. Date: Laine Day PA-C Electronically Signed By: LAINE DAY PA-C On: 04/17/2015 12:31 PM Source: [facility] [employer] Document Id: [id number] O VISUAL TECHNICIAN Owen Vega, RLaraN. - 03/24/2015 10:21 AM CST Discharge Summary Discharge Summary Entered On: 03/24/2015 10:22 AUDIO VISUAL TECHNICIAN Performed On: 03/24/2015 10:21 AUDIO VISUAL TECHNICIAN by OWEN VEGA RN [place] Information Discharged to : Home independently, Home with family care Current Home Treatments : Wound custodial Equipment : Other: sling Professional Skilled Services : None Special Services and Community Resources : None Mode of Discharge : Wheelchair Discharge Transportation : Private vehicle Accompanied By : Nurse Date/Time of Discharge : 03/24/2015 10:22 AUDIO VISUAL TECHNICIAN OWEN VEGA RN - 03/24/2015 10:21 AUDIO VISUAL TECHNICIAN Valuables/Belongings Belongings Sent Home With : jessica patient OWEN VEGA RN - 03/24/2015 10:21 AUDIO VISUAL TECHNICIAN Source: [facility] POWERCHART Document Id: [id number] AUDIO VISUAL TECHNICIAN!13 O VISUAL TECHNICIAN documented in this encounter Medications at Time of Discharge Medication Sig Dispensed Refills Start Date End Date aspirin 0.1 mg capsule aspirin 81 mg oral 0 07/3108/15/2018 tablet See Instructions, Take by mouth daily. CALCIUM CARB/VIT Take 1 tablet by mouth 0 010 12/14/2019 D3/MINERALS daily. (CALCIUM-VITAMIN D ORAL) metFORMIN (GLUCOPHAGE) Take 1-2 tablets by 0 05/201301/21/2020 500 mg tablet mouth 2 (two) times a day. metoprolol succinate Take 0.5 tablets by 0 201408/16/2018 (for_TOPROL-XL) 12.5 mg mouth daily. Patient 24 hr tablet confirmed he was taking 0.5 tablet 1xday, however, Rx fill history suggests that it was the tartrate formulation. omeprazole (PriLOSEC) Take 1 capsule by 0 011 08/16/[address] capsule mouth daily. documented as of this encounter Progress Notes Amairani Mckoy, P.T. - 03/24/2015 9:42 AM CST Physical Therapy Initial Evaluation Physical Therapy Initial Evaluation Entered On: 03/24/2015 9:47 AUDIO VISUAL TECHNICIAN Performed On: 03/24/2015 9:42 AUDIO VISUAL TECHNICIAN by AMAIRANI MCKOY PT General Info Reason for Referral to Physical Therapy : Decreased safety, Pain, Patient/Caregiver education Physical Therapy Orders : Physical Therapy Evaluate & Treat - 03/23/15 12:16:00 AUDIO VISUAL TECHNICIAN, Post Op therapy, s/p TSA Precautions to Rehabilitation Treatment : s/p rTSA, ostoeporosis Pain Symptoms : No Orientation : Oriented x 3 Safety/Judgment : Impaired Basic Command Following : Impaired AMAIRANI MCKOY PT - 03/24/2015 9:42 AUDIO VISUAL TECHNICIAN Musculoskeletal PT Range of Motion Grid Left Upper Extremity : Active Within Normal Limits Right Upper Extremity : Other AMAIRANI MCKOY PT - 03/24/2015 9:42 AUDIO VISUAL TECHNICIAN Right UE Range of Motion Detailed : flex 0-90, ER to neutral. , wrist/hand /elbow WFL Left Upper Extremity Strength : Other: WFL for bed mob and transfer Right Upper Extremity Strength : Other: held due to surgical precautions AMAIRANI MCKOY PT - 03/24/2015 9:42 AUDIO VISUAL TECHNICIAN Balance/Mobility Sitting/Standing Balance Grid Sitting Balance : Good Standing Balance : Good AMAIRANI MCKOY PT - 03/24/2015 9:42 AUDIO VISUAL TECHNICIAN Neuro Coordination : Normal AMAIRANI MCKOY PT - 03/24/2015 9:42 AUDIO VISUAL TECHNICIAN Assessment Rehabilitation Potential : Good PT Problem List : Pain limiting function, Strength/Range of motion deficits PT Clinical Assessment : Pt plans to have family assist at home and follow up with Jose Luis WALSH. Guidelines for shoulder rehab given to pt and . observed HEP and pt's self AROM. AMAIRANI MCKOY PT - 03/24/2015 9:42 AUDIO VISUAL TECHNICIAN Goals PT Patient/Caregiver Goal : return home Patient Will Tolerate PROM : Yes AMAIRANI MCKOY PT - 03/24/2015 9:42 AUDIO VISUAL TECHNICIAN Plan PT Frequency : Daily, Discontinue PT Duration : One day PT Anticipated Treatments : Therapeutic exercise PT Plan/Goals Established w Pt/Caregiver : Yes AMAIRANI MCKOY PT - 03/24/2015 9:42 AUDIO VISUAL TECHNICIAN DC Recommendations Discharge To, Anticipated : Home with family care PT Other Treatment : Yes AMAIRANI MCKOY PT - 03/24/2015 9:42 AUDIO VISUAL TECHNICIAN Treatment Therapeutic Activities/Exercise Provided : Yes PT Treatment Patient Response : Pt has a hard time following instruction and talks about others who have done therapy for smae procedure. Very activie with R arm movements. PT Treatment Response : Cautious for pt's highly active movements of R shld but arm stays in front of pt. PT Total Treatment Time : 13 minute(s) Treatment Assessment : Pt positioned in recliner for comfort with nurses attendign pt for marcaine pump d/c. Pt to call Jose Luis WALSH for next week appt. AMAIRANI MCKOY PT - 03/24/2015 9:42 AUDIO VISUAL TECHNICIAN Ther Activities/Exercise Therapeutic Exercises Performed : Other: instruction in reverse TSA ex adn precautions but pt has a hard time concentrating. written ex and observed PROM 10reps flex 0-90 without resistance felt at endrange and eR to neutral. AMAIRANI MCKOY PT - 03/24/2015 9:42 AUDIO VISUAL TECHNICIAN Education PT Education Grid Topics : Exercise program, Physical Therapy plan of care Individuals Taught : Patient, Spouse Barriers to Learning : Difficulty concentrating Teaching Method : Demonstration, Explanation, Printed materials Teaching Evaluation : Returns demonstrations correctly, Verbalizes understanding AMAIRANI MCKOY PT - 03/24/2015 9:42 AUDIO VISUAL TECHNICIAN PT Charge Registration Status - PT : Inpatient: Hospital/TCU Physical Therapy Evaluation Charges : Yes Therapeutic Exercise Minutes : 13 minute(s) Therapeutic Exercise Charges : 1 units AMAIRANI MCKOY PT - 03/24/2015 9:42 AUDIO VISUAL TECHNICIAN [facility] POWER[facility] Document Id: [id number] AUDIO VISUAL TECHNICIAN!58 O VISUAL TECHNICIAN Grecia Ling APRN, C.N.P., M.S.N. - 03/24/2015 9:21 AM CST Hospital Progress Note (SOAP) Document Contains Addenda Addendum by KAREL CORONEL MD on 24 March 2015 11:35:25 AUDIO VISUAL TECHNICIAN Patient has been independently examined by me, agree with evaluation and clinical plan, as determined by Grecia. Breif Summary 1. Status post right shoulder rotator cuff arthroplasty POD #1 Postoperativemanagement as per primary team. 2. Mild coronary artery disease / Myocardial infarction, status postdrug-eluting stent in 2011./status post transient ischemic attack in 1999. 3. Sinus bradycardia, likely from beta blockers, anesthesia, and pain medications - Resolved. Can discontinue telemetry as no events. Restart aspirin Medical team will sign off . Please feel free to call us for questions. Modified by and Electronically Signed by: KAREL CORONEL MD On: 03/24/2015 11:38 AM SUBJECTIVE Patient is looking and felling well this morning. He had no medical concerns overnight. He is normotensive this morning. He is looking forward to going home today. He did ask for his flu shot and he will receive that before he is discharged. VITAL SIGNS HR: 105 RR: 16 BP: 134 / 82 SpO2: 95% WT: 70.5 kg PHYSICAL EXAMINATION GENERAL APPEARANCE: The patient is alert and oriented and in no acute distress. HEART: Regular rate and rhythm. No murmurs present. LUNGS: Clear to auscultation bilaterally. No crackles, cough, or wheezes are heard. ABDOMEN: Soft, nontender, nondistended with good bowel sounds heard. EXTREMITIES: Right upper extremity surgical site: Sling immobilizer in place, surgical dressing intact and dry. CWS all with in normal limits. NEUROLOGICAL: Gross nonfocal. LAB RESULTS -----HEMATOLOGY----- Hgb: 12.5 Low 03/24/15 Hct: 36.6 Low 03/24/15 WBC: 10.8 High 03/24/15 RBC: 4.04 Low 03/24/15 MCV: 90.6 03/24/15 RDW: 13.8 03/24/15 Platelet: 214 03/24/15 -----CHEMISTRY----- Sodium Lvl: 141 03/24/15 Potassium Lvl: 3.9 03/24/15 Chloride: 103 03/24/15 CO2: 25 03/24/15 AGAP: 13 03/24/15 Alkaline Phosphatase: 106 03/24/15 Glucose Fastin High 03/24/15 Creatinine: 0.95 03/24/15 EGFR (MDRD): >60 03/24/15 EGFR (MDRD): >60 03/24/15 BUN: 14 03/24/15 Calcium Lvl: 8.8 03/24/15 Protein Total: 6.0 Low 03/24/15 Albumin Lvl: 3.4 Low 03/24/15 AST: 32 03/24/15 ALT: 23 03/24/15 Bili Total: 0.6 03/24/15 DIAGNOSTIC RESULTS 23-Mar-2015 12:15 [facility] PROCEDURE: Shoulder 1vw RIGHT COMPARISON: None. IMPRESSION: Postop right shoulder reverse arthroplasty. HISTORY: postop reverse TSA FINDINGS: Postoperative changes reverse right total shoulder arthroplasty, no apparent hardware complications. Intracapsular gas secondary to recent postoperative status. [1] ASSESSMENT/PLAN 75-year-old male status post right rotator cuff arthroplasty with multiple medical comorbidities including hypertension, hyperlipidemia, history of stroke, and syncopal history. He is doing well postoperatively with no acute medical concerns. He is ready for discharge today, per primary team. The medical team will sign off, given no active medical issues. The same has been discussed with patient andinterdisciplinary team. Please feel free to call with any questions. He will receive his influenza vaccine before discharge. FOOTNOTES [1]XR Shoulder Right 1 view portable; DEACON Sanjuana VELA(R)(CT)Sanjuana(R) 03/23/2015 12:06 AUDIO VISUAL TECHNICIAN Electronically Signed By: GRECIA ALEMAN APRN C.N.PLara, M.S.N On: 03/24/2015 09:42 AM Source: [employer] Document Id: [id number] O VISUAL TECHNICIAN Ana Rosa Dodson M.D. - 03/24/2015 7:27 AM CST POD#1 s/p R rTSA Pt doing well this am. Pain controlled with the block. Denies any issues. Ready for PT and looking forward to discharge home. AOx3, NAD R shoulder dressing c/d/i. Able to move fingers and manager enrollment but due to block, limited exam. Hgb 12.5 Plan: -Sling, PT -No IR of the shoulder -oral pain meds -Dispo: likely d/c home today with catheter in place. Electronically Signed By: ANA ROSA DODSON MD On: 03/24/2015 07:29 AM Source: [employer] Document Id: [id number] O VISUAL TECHNICIAN documented in this encounter Procedure Notes Brandi Millard RLaraN. - 03/23/2015 6:38 AM CST Preprocedure Checklist Preprocedure Checklist Entered On: 03/23/2015 6:54 AUDIO VISUAL TECHNICIAN Performed On: 03/23/2015 6:38 AUDIO VISUAL TECHNICIAN by BRANDI MILLARD RN Checklist Last Fluid Intake : 03/23/2015 5:00 AUDIO VISUAL TECHNICIAN Last Food Intake : 03/22/2015 18:00 AUDIO VISUAL TECHNICIAN Surgical Preparation : N/A BRANDI MILLARD RN - 03/23/2015 6:38 AUDIO VISUAL TECHNICIAN Surgery Prep Grid Contacts/Glasses Removed : Yes Dentures Removed : Yes (Comment: partial lower, full upper [BRANDI MILLARD RN - 03/23/2015 6:38 AUDIO VISUAL TECHNICIAN] ) Hairpins/Hairpiecies Removed : NA Hearing Aid Removed : Yes Home Prep Complete : NA Jewelry/Piercing Removed : Yes Makeup/Nail Nigerian Removed : NA Oral Hygiene : NA Preop Scrub AM of Surgery : Yes Preop Scrub Night Prior to Surgery : Yes Prosthesis Removed : NA Tampon Removed : NA Verified - No hair products used : NA Voided retail consultant to procedure : Yes Wearing Patient Gown : Yes BRANDI MILLARD RN - 03/23/2015 6:38 AUDIO VISUAL TECHNICIAN Patient Rights Grid Blood Consent Signed : Yes Surgical/Procedure Consent Signed : Yes BRANDI MILLARD RN - 03/23/2015 6:38 AUDIO VISUAL TECHNICIAN Family Location : [place] BRANDI MILLARD RN - 03/23/2015 6:38 AUDIO VISUAL TECHNICIAN Checklist II Patient Safety Grid Allergy Band on and Verified : Yes (Comment: none [BRANDI MILLARD RN - 03/23/2015 6:38 AUDIO VISUAL TECHNICIAN] ) Anesthesia Consult : Yes Band on for Limb Alert : NA Blood Band on and Verified : NA Current ECG in Medical Record : Yes Current H&P in Medical Record : Yes Implants Verified : Yes (Comment: none [BRANDI MILLARD RN - 03/23/2015 6:38 AUDIO VISUAL TECHNICIAN] ) Medication Reconciliation on Chart : Yes Pacemaker/AICD Verified : Yes ID Band on and Verified : Yes Preop Medications Sent With Patient : NA Relevant Images in Medical Record : NA Review of Labs : NA Procedure/Site Verified by Patient/Family : Yes Procedure/Site Verified by RN : Yes Procedure/Site Verified by Physician : Yes Type & Screen/Type & Cross Completed : BRANDI SALAZAR RN - 03/23/2015 6:38 AUDIO VISUAL TECHNICIAN RN Who Verified Site : BRANDI MILLARD RN Physician Who Verified Site : ANA ROSA DODSON MD, TAMMARA RN - 03/23/2015 6:38 AUDIO VISUAL TECHNICIAN SORAYA Screening Known Obstructive Sleep Apnea : No - NOT diagnosed with SORAYA SORAYA Score : No qualifying data available. SORAYA Results : No qualifying data available. BRANDI MILLARD RN - 03/23/2015 6:38 AUDIO VISUAL TECHNICIAN SORAYA Assessment Do you have high blood pressure or have you been told to take medication for high blood pressure? : No Frequency of Snoring : Rarely (1-2 times per year) Frequency of Gasping, Choking, Snorting : Never Total Number of Historical Features : 0 Neck Circumference (cm) : 40/41 Total Sleep Apnea Clinical Score Calc : 3 BRANDI MILLARD RN - 03/23/2015 6:38 AUDIO VISUAL TECHNICIAN Advance Directive Advanced Directives : No Advance Directive Additional Information : No TRACEROSAA RN - 03/23/2015 6:38 AUDIO VISUAL TECHNICIAN Vital Signs Temperature Core : 36.7 DegC(Converted to: 98.1 DegF) Peripheral Pulse Rate : 70 /min Respiratory Rate : 20 /min Systolic Blood Pressure : 158 mmHg (HI) Diastolic Blood Pressure : 89 mmHg NIBP Mean : 112 mmHg SpO2 : 98 % Oxygen Therapy : Room air Height : 167 cm(Converted to: 5 ft 6 inch(es)) Actual Weight : 68.8 kg Actual Weight Conversion to Pounds : 151.36 lb Body Mass Index : 24.67 kg/m2 BRANDI MILLARD RN - 03/23/2015 6:38 AUDIO VISUAL TECHNICIAN OR Director Professional Services Checklist Images Present and Correct : Yes Special Equipment Present : Yes Implants Present : Yes Rep Required and Present : Yes Blood Components Present : N/A JOAQUINA CALDERON RN - 03/23/2015 7:30 AUDIO VISUAL TECHNICIAN [facility] POWERCHART Document Id: [id number] AUDIO VISUAL TECHNICIAN!7 O VISUAL TECHNICIAN documented in this encounter Consult Notes Karel Coronel - 03/23/2015 12:00 AM CST [id number] Patient has undergone a right shoulder rotator cuff arthroplasty. Medical consultation called in for followup of medical comorbids. Had a procedure which was uneventful with an estimated blood loss of 300 mL. Has been bradycardic perioperatively with heart rate as low as 48. Denies any chest pain, no shortness of breath. Comfortable lying in bed. Passing urine through the Sharpe catheter. Last bowel movement yesterday. No tingling, no numbness, no palpitations. No bleeding. No oozing. Preoperative risk assessment done by a Laila Loco, [facility] in [place] (outside of [facility]). Has quit taking his aspirin 5 days before the procedure. No complications during previous surgeries. Has had no bleeding disorders in family. His dad had fatal pulmonary embolus and from a DVT at age 74. SYSTEMS REVIEW Constitutional symptoms: No fever or no chills. Skin symptoms: No rash or no lesion. Eye symptoms: No blurred vision, ENMT symptoms: No ear pain or no sore throat. no sinus problems, no hoarseness, Respiratory symptoms: No shortness of breath or no cough. no wheezing Cardiovascular symptoms: no palpitations , no chest pain. No orthopnea. No PND. Gastrointestinal symptoms: No abdominal pain, no nausea, no vomiting or bowel disturbance Genitourinary symptoms: No dysuria or no hematuria. Neurologic symptoms: no dizziness, no headache or no weakness. no diffuculty swallowing or speaking Psychiatric symptoms: No anxiety or no depression. Hematologic/Lymphatic symptoms: No blood in stool or dark stools. PAST MEDICAL HISTORY Reviewed. MEDICATIONS Advil Aspirin Lipitor Lopressor Omeprazole Prednisone Zetia. ALLERGIES No known allergies. PAST SURGICAL HISTORY Carotid endarterectomy in 1999. Decompression of the median nerve carpal tunnel in 02/2007. Left hand surgery. Vasectomy. PCI in 2011. SOCIAL HISTORY Lives at home with his . . Quit smoking 25 years ago. Occasional alcohol use. No drug use. FAMILY HISTORY Heart disease in paternal uncles. Strokes in maternal grandmother and mother. Father had blood clots. PHYSICAL EXAMINATION VITAL SIGNS: Afebrile, pulse rate of 50, respiratory rate 18. Saturating 97% on 2 L nasal cannula. Blood pressure 122/60. GENERAL: Alert and oriented x3. No JVD. No lymphadenopathy. CARDIOVASCULAR: S1, S2 heard. Bradycardia. Regular rhythm. LUNGS: Bilateral air entry. Clear. ABDOMEN - soft non tender bowel sounds heard EXTREMITIES: Motor and sensory system grossly intact. Right hand covered and splinted. DIAGNOSTICS Preoperative labs reviewed. Hemoglobin 14.9, platelets 240. TSH 2.0. A1c 5.2. HDL 47, LDL 112. Sodium 140, potassium 4.4, creatinine 1.0. Preop EKG as per records, normal sinus rhythm, bradycardia with a heart rate of 52 and QTc of 412, inferior Q-waves. Preop chest x-ray, normal cardiac size, mild aortic microcalcifications. Angiogram from 2012 reviewed. IMPRESSION/REPORT/PLAN 1. Status post right shoulder rotator cuff arthroplasty. Postoperative management care, physical therapy, pain management, and deep venous thrombosis prophylaxis as per primary team. 2. Mild coronary artery disease. 3. Myocardial infarction, status post drug-eluting stent in 2011. 4. Cerebrovascular disease, status post transient ischemic attack in 1999. 5. Sinus bradycardia, likely from beta blockers, anesthesia, and pain medications. Placed on telemetry for 24 hours. Can restart aspirin tomorrow. Patient educated if any chest pain, shortness of breath, tingling, numbness, bleeding, oozing or legcramps noted to inform nursing team. Continue home dose of atorvastatin and Zetia. Hold metoprolol. Can give evening dose of metoprolol if heart rate has been in 60s. 6. Polymyalgia rheumatica. Is on 2.5 mg of prednisone at home which has been continued (ordered 5 mg), discussed with the pharmacy. 7. Previous history of tobacco dependency. Aggressive incentive spirometry. 8. Gastroesophageal reflex disease. Continue Prilosec. Medical team will continue to follow. Please feel free to call us for any questions. Karel Coronel M.D/dirk Electronically Signed By: KAREL CORONEL MD On: 03/23/2015 03:24 PM Modified by and Electronically Signed by: KAREL CORONEL MD On: 03/23/2015 03:24 PM Source: [facility] MHSDOLBEYNON[employer]SYS Document Id: [id number] O VISUAL TECHNICIAN documented in this encounter Nursing Notes Alex Colon, SammySShukri - 03/24/2015 9:51 AM CST Big Data Analytics Lead/Discharge Planning Big Data Analytics Lead/Discharge Planning Entered On: 03/24/2015 10:13 AUDIO VISUAL TECHNICIAN Performed On: 03/24/2015 9:51 AUDIO VISUAL TECHNICIAN by ALEX COLON Assessment Big Data Analytics Lead Needs : Big Data Analytics Lead Assessment Follow in Interdisciplinary Team : Yes Referral : Auto Information Obtained From : Patient Languages : Icelandic Mental Status : Alert ALEX COLON - 03/24/2015 9:51 AUDIO VISUAL TECHNICIAN Advance Directive Advanced Directives : No Advance Directive Additional Information : No ALEX COLON - 03/24/2015 9:51 AUDIO VISUAL TECHNICIAN Psychosocial Domestic Abuse Concerns : None Safe Place to Go : Yes Agency Notified of Domestic Concerns : None Marital Status : Years of Marriage : Astr[place] [phone] Number of Children : 4 kids: Yuval Peng and Jesus [facility] Emotional Support Available : Yes Behavioral Health Screen/Safety Assmt : No Moravian Preference : [place] COLONИВАНALEX M [facility] 03/24/2015 9:51 AUDIO VISUAL TECHNICIAN Dependent Habits Tobacco Use/Currently Using : No Exposure to Tobacco Smoke : Other: former Smoking Status : Unknown if ever smoke RYLIEPHILIPPИВАНALEX M [facility] 03/24/2015 9:51 AUDIO VISUAL TECHNICIAN Tobacco Use Grid Other Tobacco Frequency : no ALEX COLON [facility] 03/24/2015 9:51 AUDIO VISUAL TECHNICIAN Caffeine Use Grid Caffeine Use : Current Type : Coffee Frequency : Daily RYLIEPHILIPP ALEX M [facility] 03/24/2015 9:51 AUDIO VISUAL TECHNICIAN DC Needs Plan for Discharge : Pt plans to return home with his Astrid who will be with him upon discharge and will be transporting him. He will do outpt PT at [facility]. Home Equipment, Anticipated : Dressing device RYLIEPHILIPPИВАНALEX M [facility] 03/24/2015 9:51 AUDIO VISUAL TECHNICIAN Discharge Planning Discharge Options Discussed with Patient : Discharge transportation, Home Health, Rehabilitation Unit ALEX COLON [facility] 03/24/2015 9:51 AUDIO VISUAL TECHNICIAN Source: [facility] POWERCHART Document Id: [id number] AUDIO VISUAL TECHNICIAN!38 O VISUAL TECHNICIAN Ankita Lynch RLaraNLara - 03/24/2015 4:12 AM CST Cardiac Monitoring Cardiac Monitoring Entered On: 03/24/2015 4:13 AUDIO VISUAL TECHNICIAN Performed On: 03/24/2015 4:12 AUDIO VISUAL TECHNICIAN by ANKITA LYNCH RN Cardiac Monitoring Monitoring Lead : III, V1/MCL1 Atrial Rate : 68 bpm Atrial Rhythm : Regular Ventricular Rate : 68 bpm Ventricular Rhythm : Regular TN Interval : 0.19 P to QRS Ratio : 1:1 QRS Duration : 0.08 second(s) QT Interval : 0.40 second(s) TN Consistency : Consistent QRS Consistency : Consistent ST Segment : Isoelectric Ectopy Frequency : None Cardiac Rhythm Tech : Sinus rhythm ANKITA LYNCH RN - 03/24/2015 4:12 AUDIO VISUAL TECHNICIAN Source: [employer] Document Id: [id number] AUDIO VISUAL TECHNICIAN!16 O VISUAL TECHNICIAN Alma Teixeira R.N. - 03/24/2015 3:24 AM CST PRN Response PRN Response Entered On: 03/24/2015 3:24 AUDIO VISUAL TECHNICIAN Performed On: 03/24/2015 3:24 AUDIO VISUAL TECHNICIAN by ALMA TEIXEIRA RN PRN Medication Effectiveness Evaluation PRN Medication Effective : Yes ALMA TEIXEIRA RN - 03/24/2015 3:24 AUDIO VISUAL TECHNICIAN Source: [employer] Document Id: [id number] AUDIO VISUAL TECHNICIAN!3 O VISUAL TECHNICIAN Ankita Lynch R.N. - 03/24/2015 12:05 AM CST Cardiac Monitoring Document Has Been Updated Cardiac Monitoring Entered On: 03/24/2015 2:53 AUDIO VISUAL TECHNICIAN Performed On: 03/24/2015 0:05 AUDIO VISUAL TECHNICIAN by ANKITA LYNCH RN Cardiac Monitoring Monitoring Lead : III, V1/MCL1 Atrial Rate : 84 bpm Atrial Rhythm : Regularly irregular Ventricular Rate : 84 bpm Ventricular Rhythm : Regularly irregular TN Interval : 0.18 P to QRS Ratio : 1:1 QRS Duration : 0.07 second(s) QT Interval : 0.39 second(s) TN Consistency : Consistent QRS Consistency : Consistent ST Segment : Isoelectric Ectopy Frequency : None Cardiac Rhythm Tech : Sinus arrhythmia ANKITA LYNCH RN - 03/24/2015 2:56 AUDIO VISUAL TECHNICIAN Source: [employer] Document Id: [id number] AUDIO VISUAL TECHNICIAN!16 O VISUAL TECHNICIAN Gena Gonzalez R.N. - 03/23/2015 8:00 PM CST Cardiac Monitoring Cardiac Monitoring Entered On: 03/23/2015 20:10 AUDIO VISUAL TECHNICIAN Performed On: 03/23/2015 20:00 AUDIO VISUAL TECHNICIAN by GENA GONZALEZ RN Cardiac Monitoring Monitoring Lead : III, V1/MCL1 Atrial Rate : 95 bpm Atrial Rhythm : Regular Ventricular Rate : 95 bpm Ventricular Rhythm : Regular TN Interval : 0.19 QRS Duration : 0.07 second(s) QT Interval : 0.34 second(s) Ectopy Frequency : None Cardiac Rhythm Tech : Sinus rhythm GNEA GONZALEZ RN - 03/23/2015 20:09 AUDIO VISUAL TECHNICIAN [facility] Document Id: [id number] AUDIO VISUAL TECHNICIAN!12 O VISUAL TECHNICIAN Daria Sousa R.N. - 03/23/2015 2:04 PM CST Cardiac Monitoring Cardiac Monitoring Entered On: 03/23/2015 14:15 AUDIO VISUAL TECHNICIAN Performed On: 03/23/2015 14:04 AUDIO VISUAL TECHNICIAN by DARIA SOUSA RN Cardiac Monitoring Monitoring Lead : III Monitoring Lead [employer] Marine Engineer : Initiated Atrial Rate : 61 bpm Atrial Rhythm : Regular Ventricular Rate : 61 bpm Ventricular Rhythm : Regular TN Interval : 0.22 P to QRS Ratio : 1:1 QRS Duration : 0.07 second(s) QT Interval : 0.45 second(s) (Comment: qtc 0.44 [DARIA SOUSA RN - 03/23/2015 14:14 AUDIO VISUAL TECHNICIAN] ) TN Consistency : Consistent QRS Consistency : Consistent ST Segment : Isoelectric Ectopy Frequency : None Cardiac Rhythm Tech : First degree heart block DARIA SOUSA RN - 03/23/2015 14:14 AUDIO VISUAL TECHNICIAN [facility] Document Id: [id number] AUDIO VISUAL TECHNICIAN!17 O VISUAL TECHNICIAN Conversion, Historical Provider Ser - 03/23/2015 10:31 AM CST [facility] Main OR Nursing Record [facility] Main OR Nursing Record Summary Primary Physician: ANA ROSA DODSON MD Finalized Date/Time: 03/23/15 14:54:24 Pt. Name: RYLEY DURÁN /Sex: 1940 Male Med Rec #: [id number] Physician: ANA ROSA DODSON MD Financial #: [id number] Pt. Type: I Room/Bed: [facility] Admit/Disch: 03/23/15 06:16:56 - Institution: Allergies identified in patient's electronic medical record at time of printing on 03/23/15 Entry 1 Substance NKA Reaction Type Allergy Last Modified By: TIEN ELLIS 01/09/10 14:01:09 Nursing Assessment [facility] Entry 1 Preop Checklist Yes Patient Arrived in No Reviewed OR with Jewelry, Valuables, Glasses and/or Contact Lenses. If yes, disposition charted on Valuables/Belongings tab of Preprocedure Checklist. Level of Sedated Skin Condition Intact Consciousness Nursing Data - Pain Does Patient Have No Pain? Diagnoses X04 Anxiety, X29 Interventions I106 Provides Injury, risk of, X30 instruction based on Knowledge deficit, X38 age and identified Pain, X57 Temperature, need., I050 Evaluates risk for altered body, response to X32 Latex allergy instructions., I078 response, risk for Implements thermoregulation measures., I109 Provides status reports to family/support person. Expected Outcomes O01 The patient is free All Patient Yes from signs and symptoms Outcomes Met? (see of physical injury., anesthesia record O12 The patient is at for hypothermia or returning to outcome) normothermia at the conclusion of the immediate postoperative period., O29 The patient demonstrates and/or reports adequate pain control throughout the perioperative period., Patient verbalizes comprehension of instructions, Patient verbalizes/indicates decreased anxiety and understanding of procedures/events Last Modified By: JOAQUINA CALDERON RN 03/23/15 08:45:27 Case Times [facility] Entry 1 Patient In Room Time 03/23/15 08:00:00 Anesthesia Start 03/23/15 08:00:00 Time Surgery Start Time 03/23/15 08:38:00 Surgery Stop Time 03/23/15 10:31:00 Patient Out Room 03/23/15 10:55:00 Anesthesia Stop Time 03/23/15 10:55:00 Time Last Modified By: JOAQUINA CALDERON RN 03/23/15 13:20:46 Case Attendance [facility] Entry 1 Entry 2 Entry 3 Case Attendee ANA ROSA DODSON MD, JOAQUINA HODGE MD, RN Role Performed Surgeon, Primary Distributor Operator, First RN Director Professional Services - Primary Time In 03/23/15 08:00:00 03/23/15 08:00:00 03/23/15 08:00:00 Time Out 03/23/15 10:55:00 03/23/15 10:55:00 03/23/15 10:55:00 Relief? No No No See Anesthesia Record for Additional Attendees and Relief Times Last Modified By: JOAQUINA CALDERON RN, CHARLES RN RITMIRE, CHARLES RN 03/23/15 13:20:48 03/23/15 13:20:48 03/23/15 13:20:48 Entry 4 Entry 5 Entry 6 Case Attendee VICKY YOUNG LINDA CRNA OLIVE, DIANA M RN Role Performed Scrub, First Certified Registered Student Registered Nurse Stoker Installer Nurse Stoker Installer Time In 03/23/15 08:00:00 03/23/15 08:00:00 03/23/15 08:00:00 Time Out 03/23/15 10:55:00 03/23/15 10:55:00 03/23/15 10:55:00 Relief? No No No See Anesthesia Record for Additional Attendees and Relief Times Last Modified By: JOAQUINA CALDERON RN, CHARLES RN RITMIRE, CHARLES RN 03/23/15 13:20:48 03/23/15 13:20:48 03/23/15 13:20:48 Entry 7 Entry 8 Entry 9 Case Attendee LAINE DAY PA-C, HARESH SANTOS RN Role Performed Distributor Operator, First Manager Book RN Director Professional Services - Primary Time In 03/23/15 08:00:00 03/23/15 08:00:00 03/23/15 09:12:00 Time Out 03/23/15 10:55:00 03/23/15 10:55:00 03/23/15 09:28:00 Relief? No No Yes See Anesthesia Record for Additional Attendees and Relief Times Last Modified By: RITMIRE, JOAQUINA MAURO RN, RN, CHARLES RN 03/23/15 13:20:48 03/23/15 13:20:48 03/23/15 09:25:02 Other Attendee [facility] Entry 1 Other Attendee Name ROCIO RIDLEY Role/Relationship Vendor Last Modified By: JOAQUINA CALDERON RN 03/23/15 08:46:03 Surgical Procedures [facility] Entry 1 Procedure Shoulder Arthroplasty Modifiers Right Total Procedure Performed Right reverse total Primary Procedure Yes (Primary Procedure shoulder arthroplasty Surgeon Comment) Lisa Primary Surgeon ANA ROSA DODSON MD Surgical Service SN - Orthopedics Start 03/23/15 08:38:00 Stop 03/23/15 10:31:00 Anesthesia Type General Anesthesia Type Yes Verified Pain Block Interscalene Block Last Modified By: JOAQUINA CALDERON RN 03/23/15 13:20:52 General Case Data [facility] Entry 1 Case Information OR [facility] OR 04 Case Level Level 4 Wound Class Clean Specialty SN - Orthopedics ASA Class 2 Diagnosis Preop Diagnosis Arthritis Last Modified By: JOAQUINA CALDERON RN 03/23/15 08:46:41 Fire Risk Assessment [facility] Entry 1 Date/Time 03/23/15 08:38:00 Surgical Site Above Yes = 1 Xiphoid Open Oxygen Source No = 0 Available Ignition Yes = 1 Source Fire Risk 2 Last Modified By: JOAQUINA CALDERON RN 03/23/15 08:48:05 Surgical Pause [facility] Entry 1 Pause Date-Time 03/23/15 08:38:00 Surgical/Procedural Surgical team verifies Team Pause patient name and birthdate, Surgical team verifies surgical procedure, including side and site, Surgical team verifies correct patient position, Surgical team verifies availability of implants, special equipment or special requirements, Surgical team verifies antibiotic administration and documentation Fire Risk Assessment Surgical Team Verified Fire Risk Assessment Last Modified By: JOAQUINA CALDERON RN 03/23/15 08:48:17 Initial Count Entry 1 Initial Sponge Count Yes Initial Sharps Count Yes Initial Instrument Yes By VICKY YOUNG Count Last Modified By: JOAQUINA CALDERON RN 03/23/15 08:48:43 General Comments: STACY BEAN RN Positioning Entry 1 Diagnoses X29 Injury, risk of, Positioning By ANA ROSA DODSON MD, X51 Skin integrity, JOAQUINA CALDERON RN, risk for impaired MYERSHARDIK CRNA Body Position Supine Left Arm Position Padded, Extended on Armboard Right Arm Position in operative field Leg Position Pillow under knees, Bony Prominences Padded Intermittent Yes Interventions I064 Identifies Pneumatic physical alterations Compression Device, that may affect Knee High? procedure-specific positioning., I011 Applies safety devices., I041 Evaluates for signs and symptoms of physical injury. Expected Outcomes O05 The patient is free Outcomes Met? Yes from signs and symptoms of injury related to positioning. Last Modified By: JOAQUINA CALDERON RN 03/23/15 08:49:36 Positioning Device [facility] Entry 1 Entry 2 Positioning Device [place] Shoulder [place]ano Arm Positioner Device Location Back Arm, Right Last Modified By: JOAQUINA CALDERON RN, CHARLES RN 03/23/15 08:49:56 03/23/15 08:49:56 Skin Prep [facility] Entry 1 Skin Prep Prep Site Shoulder, Right Prep Agents Chlorhexidine, Alcohol, Chloroprep Flammable Prep Yes By JOAQUINA CALDERON RN, Agents Allowed to LAINE DAY PA-C Dry? Hair Removal Methods N/A Diagnosis X28 Infection, risk for Interventions I081 Initiates traffic control., I098 Protects from cross-contamination., Prep performed consistent with aseptic principles and surgeon preference Expected Outcomes Surgery performed using Outcomes Met Yes aseptic technique, preventing cross contamination Last Modified By: JOAQUINA CALDERON RN 03/23/15 08:50:55 Cautery Entry 1 CauteryType [facility] Unit I.D. Number [id number] Coag Setting 50 Cut Setting 50 Grounding Pad Site Left thigh Skin Cond Before Skin intact Skin Cond After Skin intact Last Modified By: JOAQUINA CALDERON RN 03/23/15 08:51:50 Medications [facility] Entry 1 Entry 2 Entry 3 Medication 1% Lidocaine with Bacitracin 300,000units Povidone-Iodine 0.25% Epinephrine 1:100,000 in 3000ml NaCl 0.9% 6ml / 0.5% Bupivacaine 6ml Time Administered 03/23/15 08:38:00 03/23/15 08:52:00 03/23/15 08:52:00 Route of Admin Injection to Surgical Irrigation to Surgical Irrigation to Surgical Area Area Area Volume 20 mL 1000 mL 500 mL By BRANT LAZO MD, MICHAEL R MD JOHNSON, MICHAEL R MD Last Modified By: RITMIREJOAQUINA RN, CHARLES RN RITMIRE, CHARLES RN 03/23/15 08:53:14 03/23/15 08:53:14 03/23/15 08:53:14 Entry 4 Medication Dermabond Propen Time Administered 03/23/15 08:53:00 Route of Admin Topical to Surgical Area Volume 1 APL By ANA ROSA DODSON MD Last Modified By: JOAQUINA CALDERON RN 03/23/15 08:53:14 Implant [facility] Entry 1 Entry 2 Entry 3 Implant Identification Implant Description TM RVS BASE PLT 15MM INVERSE REVERSE Misc Shoulder Implants POS [id number] CANCELLOUS SCREW 4.5 X 18MM 23.018 Implant Site Right Shoulder Right Shoulder Right Shoulder Network Operations Project Manager Lisa Lisa Lisa Catalog # [id number] (Network Operations Project Manager Item Number) Lot Number or [id number] Serial Number/ Hospital Load Number Size 15mm 18mm 30mm Quantity 1 1 1 Expiration Date Last Modified By: JOAQUINA CALDERON RN, CHARLES RN RITMIRE, CHARLES RN 03/23/15 14:45:08 03/23/15 14:45:08 03/23/15 14:45:08 Entry 4 Entry 5 Entry 6 Implant Identification Implant Description TM REVERSE 36MM Misc Shoulder Implants TM REVERSE 36MM POLY GLENOSPHERE LINER +0MM [id number] Implant Site Right Shoulder Right Shoulder Right Shoulder Network Operations Project Manager Lisa Lisa Lisa Catalog # [id number] (Network Operations Project Manager Item Number) Lot Number or [id number] Serial Number/ Hospital Load Number Size 36mm 12mm /130mm 36mm +0 Quantity 1 1 1 Expiration Date Last Modified By: JOAQUINA CALDERON RN, CHARLES RN RITMIRE, CHARLES RN 03/23/15 14:45:08 03/23/15 14:45:08 03/23/15 14:45:08 Radiology Entry 1 X-Ray Type C-Arm Protective Devices Yes Used for the patient? Last Modified By: JOAQUINA CALDERON RN 03/23/15 08:53:30 Counts Entry 1 Entry 2 Counts Sequence Closing Count Final Count Sponges Count Yes Yes Correct? Sharps/[place] Yes Yes Count Correct? Instrument Count Yes n/a Correct? By VICKY YOUNG RITMIRE, CHARLES RN, JOAQUINA CALDERON RN, MICHELLE Actions Taken Surgeon notified of Surgeon notified of count status count status Last Modified By: JOAQUINA CALDERON RN, CHARLES RN 03/23/15 10:13:42 03/23/15 10:13:42 Dressings Entry 1 Location Shoulder, Right Dressing Dermabond, Aquacel, Sling, arm Tape Type N/A Last Modified By: JOAQUINA CALDERON RN 03/23/15 10:32:23 Departure from OR Entry 1 Via Cart Post-op Destination PACU Report Given To SHIRA DIAS RN Final Wound Class Clean per Surgeon/Team Reason for Change No change in wound class in Wound Class Last Modified By: JOAQUINA CALDERON RN 03/23/15 10:38:12 Case Comments <None> Finalized By: HARDIK INGRAM Signed By: Signature Initials Document Signatures Signed By: JOAQUINA CALDERON RN 03/23/15 14:45 HARDIK INGRAM 03/23/15 14:51 JOAQUINA CALDERON RN 03/23/15 13:21 HARDIK INGRAM 03/23/15 14:54 Unfinalized History Date/Time Username Reason for Unfinalizing Freetext Reason for Unfinalizing 03/23/15 14:44 [id number] Finish Documentation 03/23/15 14:50 [id number] Modify Pick List 03/23/15 14:53 [id number] Modify Pick List Source: [facility] Document Id: [id number] Brandi Millard RLaraNLara - 03/23/2015 6:38 AM CST Influenza Immunization Asmt Influenza Immunization Asmt Entered On: 03/23/2015 6:55 AUDIO VISUAL TECHNICIAN Performed On: 03/23/2015 6:38 AUDIO VISUAL TECHNICIAN by BRANDI MILLARD RN Influenza Protocol Influenza Vaccine Exclusions : Patient has none of the below exclusions Influenza Patient Wants Vaccine : No - Refused/Order not placed BRANDI MILLARD RN - 03/23/2015 6:38 AUDIO VISUAL TECHNICIAN Source: [employer] Document Id: [id number] AUDIO VISUAL TECHNICIAN!4 O VISUAL TECHNICIAN documented in this encounter OR Notes Op Note - Paul Burt M.D. - 03/24/2015 2:13 PM CST PATIENT LOCATION _[facility] POST OP CONTINUOUS NERVE BLOCK POD #1, catheter d/roseann per nursing POST OP CONTINUOUS EPIDURAL n/a COMPLICATIONS none, patient discharged to home this am RESPIRATORY FUNCTION, INCLUDING RESPIRATORY RATE, AIRWAY PATENCY, AND OXYGEN SATURATION {x} Denies shortness of breath, coughing, maintains O2 saturation >92%, RR >8 _ CARDIOVASCULAR FUNCTION, INCLUDING PULSE RATE AND BLOOD PRESSURE VSS MENTAL STATUS {x} Alert and orientated x 3 or return to preoperative baseline _ TEMPERATURE normal PAIN controled NAUSEA AND VOMITING {x} Denies nausea/vomiting _ POSTOPERATIVE HYDRATION {x} Taking oral fluids/maintenance IV _ BLOOD PRESSURE Systolic Blood Pressure: 134 Diastolic Blood Pressure: 82 VITAL SIGNS Temperature Core: 37.5 Apical Heart Rate: 51 Low Heart Rate Monitored: 57 Low Heart Rate Monitored: 52 Low Heart Rate Monitored: 55 Low Heart Rate Monitored: 54 Low Heart Rate Monitored: 47 Low Heart Rate Monitored: 54 Low Peripheral Pulse Rate: 105 High Respiratory Rate: 16 SpO2: 96 Electronically Signed By: PAUL BURT MD On: 03/24/2015 02:13 PM Source: [employer] Document Id: [id number] O VISUAL TECHNICIAN Op Note - Iva Rader APRN, CRNA - 03/23/2015 11:35 AM CST PATIENT LOCATION _pacu POST OP CONTINUOUS NERVE BLOCK _currently running/ no issues POST OP CONTINUOUS EPIDURAL _none COMPLICATIONS _none currently RESPIRATORY FUNCTION, INCLUDING RESPIRATORY RATE, AIRWAY PATENCY, AND OXYGEN SATURATION {_x} Denies shortness of breath, coughing, maintains O2 saturation >92%, RR >8 _ CARDIOVASCULAR FUNCTION, INCLUDING PULSE RATE AND BLOOD PRESSURE _ nsr MENTAL STATUS {_x} Alert and orientated x 3 or return to preoperative baseline _ TEMPERATURE _na PAIN _comfortable NAUSEA AND VOMITING {x_} Denies nausea/vomiting _ POSTOPERATIVE HYDRATION {_x} Taking oral fluids/maintenance IV VITAL SIGNS Temperature Core: 36.7 Heart Rate Monitored: 52 Low Heart Rate Monitored: 55 Low Heart Rate Monitored: 57 Low Heart Rate Monitored: 50 Low Heart Rate Monitored: 59 Low Peripheral Pulse Rate: 70 Respiratory Rate: 19 Respiratory Rate: 18 Respiratory Rate: 14 Respiratory Rate: 15 Respiratory Rate: 18 SpO2: 97 SpO2: 97 SpO2: 96 SpO2: 95 SpO2: 95 BLOOD PRESSURE Systolic Blood Pressure: 125 Systolic Blood Pressure: 175 Critical Systolic Blood Pressure: 129 Systolic Blood Pressure: 129 Systolic Blood Pressure: 136 Diastolic Blood Pressure: 65 Diastolic Blood Pressure: 163 Critical Diastolic Blood Pressure: 74 Diastolic Blood Pressure: 74 Diastolic Blood Pressure: 72 Electronically Signed By: IVA RADER CRNA On: 03/23/2015 11:37 AM Source: [employer] Document Id: [id number] O VISUAL TECHNICIAN Op Note - Sangita Patiño CRNA - 03/23/2015 7:35 AM CST NPO STATUS _8hrs ANESTHESIA PLAN _general with cont block ISB ANESTHESIA INFORMED CONSENT/RISKS/ALTERNATIVES _discussed CORE MEASURES Betablocker taken pre-op: _2.5 mg Infection prior to Anesthesia: _no Pre-admission Coumadin Dose Given: _na Coumadin Last Dose: _na MALIGNANT HYPERTHERMIA _no hx DNR/DNI STATUS ADDRESSED _full code PATIENT QUESTIONS OR CONCERNS _none MALLAMPATI _2 HEART RATE _reg LUNGS _cta HISTORY AND PHYSICAL UPDATE (_x)I have found no changes. (_)I have found the following changes in the patient's condition. Electronically Signed By: SANGITA PATIÑO CRNA On: 03/23/2015 07:39 AM Source: [facility] POWERCHART Document Id: [id number] O VISUAL TECHNICIAN Op Note - Ana Rosa Dodson M.D. - 03/23/2015 12:00 AM CST [id number] PREOPERATIVE DIAGNOSIS Right shoulder rotator cuff arthropathy. POSTOPERATIVE DIAGNOSIS Right shoulder rotator cuff arthropathy. PROCEDURE Right reverse total shoulder arthroplasty. IMPLANTS Lisa 15 mm post length trabecular metal base plate with a 36 Glenosphere, a 12 x 130 trabecular metal humeral stem with a 0 x 36 mm poly liner. SURGEON Ana Rosa Dodson MD CHASER TAR SURGEON Brant Lazo MD. I requested Dr. Lazo to assist with reverse shoulder arthroplasty. Assistance was medically necessary in order to safely perform the procedure without increased blood loss or morbidity. Assistance was provided through positioning, instrumentation, and retraction of incisions for better visualization of underlying structures and cauterization for hemostasis. Assistance was also provided through wound closure, instillation of anesthetic, application of sterile dressing, and safe transport from the operative suite. CHASER TAR Laine Day PA-C. I requested Laine to assist with right reverse total shoulder arthroplasty. Assistance was medically necessary in order to safely perform the procedure without increased blood lossor morbidity. Assistance was provided through positioning, instrumentation, and retraction of incisions for better visualization of underlying structures and cauterization for hemostasis. Assistance was also provided through wound closure, instillation of anesthetic, application of sterile dressing, and safe transport from the operative suite. ESTIMATED BLOOD LOSS 300 mL. COMPLICATIONS None. 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 INDICATIONS FOR PROCEDURE Ryley is a 75-year-old gentleman who has had issues with his shoulder for quite some time, difficulties with range of motion and strength. Pain is an issue for him as well. Trialed antiinflammatories and injections which were helpful but not long lasting. Ultimately he desired to proceed with surgical intervention after an MRI showed a rotator cuff tear and glenohumeral DJD. We discussed risks and benefits of a reverse total shoulder arthroplasty and he desired to proceed. PROCEDURE Patient was identified in the preoperative holding. All of his questions were answered. His right shoulder was marked an indelible marking pen. Consent was reviewed and signed. He was brought back to the PACU where anesthesia performed an implanted interscalene catheter. He was then brought back to the operating theatre where general anesthesia was performed. He was placed in the beach chair positionwith appropriate head positioner and all of his bony prominences were padded appropriately. His right upper extremity was pre-prepped with chlorhexidine and alcohol, and then prepped and draped in a normal sterile fashion. A surgical timeout was done to identify correct patient, correct limb, correct procedure. I injected1% lidocaine with epinephrine in the proposed surgical incision and made a standard incision over the anterior shoulder for a deltopectoral approach. The subcutaneous tissue was dissected with electroca utery. Bleeders were cauterized and we dissected down to the deltopectoral interval. The cephalic vein was not visualized, but we were able to get through the deltopectoral interval without difficulty down to the clavipectoral fascia. The clavipectoral fascia was then incised. The long head of the biceps was isolated and the bicipital groove was opened and the rotator interval was opened. The biceps tendon was tenotomized at the labrum and tagged for later tenodesis. We then were able to identify the 3 sisters, the circumflex vessels, and cauterize these. At this point in time we tagged the subscapularis tendon and performed a tenotomy near to its insertion on the lesser tuberosity. This was tagged with #2 FiberWire for later repair. At this point in time we were able to place retractors into theglenohumeral joint to subluxate the head with external rotation. We were able to dissect the capsuleoff the humeral neck and expose the proximal humerus. We then placed a starting reamer down the canal of the humerus and reamed up to a size 12. We left the size [address] and placed the cutting guide on the lateral neck with appropriate amount of version 10 degrees and pinned this in the appropriate position. We made the neck cut without difficulty and removed the proximal humeral head. At this point in time we then reamed the proximal end of the canal with the appropriate reamer and then reamed the metaphysis with the tooth reamer. We then impacted the trial for the [address] with the appropriate version and turned our attention to the glenoid. Using an anterior and a posterior inferiorretractor, was able to subluxate the humeral head out of the way to expose the glenoid. We removed the residual labrum, scraped the cartilage remaining on the glenoid, and placed a single guide pin inferior to the horizontal axis of the glenoid but in the middle of the glenoid itself. The guide pin was placed and over reamed. We then reamed the surface of the glenoid with a 36 mm reamer as well as the inferior glenoid reamer. We then over drilled the center hole and then irrigated the glenoid. We inserted the trabecular metal base plate without complication, keeping in mind the position of the screws superiorly and inferiorly. This was pounded down and seated on the glenoid appropriately. We then placed the inferior and superior screw. Inferior screw was 18, the superior screw was 30. The caps were placed and the 36 Glenosphere was placed. This seated appropriately onto the base plate and then impacted in place. The C-arm was then used to confirm concentric placement of the Glenosphere on the base plate. We then trialed with the +0 liner. This gave us excellent range of motion, good tissue tensions, and full range of motion in forward elevation, abduction, external rotation and internal rotation. At this point in time we removed the trial implants from the humerus, irrigated the canal, and then impacted the size 12 x 130 stem. This seated nicely into the bone. We trialed one last time with t he +0 liner. Again this gave us excellent tissue tensions and range of motion. We then impacted the size 0 x 36 mm liner. This seated appropriately. We then reduced the shoulder, got a final intraoperative image and then irrigated the shoulder with a dilute Betadine solution for 3 minutes and then irrigated this out with pulse lavage. We then closed the subscapularis back to its new home just superior to the lesser. This was done with a #2 FiberWire. This was placed under minimal tension. We then tenodesed the biceps, the pectoralis tendon with 0 Ethibond, removed the stump of the biceps and irrigated one last time. Closed the deltopectoral interval with 0 Ethibond simple sutures, subcutaneous tissue with 2-0 Vicryl interrupted and the skin with a running 4-0 Monocryl and Dermabond. Aquacel dressing was placed. The patient was placed into a sling, awoken from his general anesthesia, and transferred to the PACU in stable condition. DISPOSITION Patient will be admitted to the hospital for total shoulder arthroplasty protocol. He will be on thereverse shoulder protocol. He will work with Physical Therapy tomorrow. He will get oral and IV painmedications as needed. Will continue with the block while in house. He will get SCDs while in the hospital and advance as tolerated with hopeful discharge job over the next day or two to home. Ana Rosa Dodson M.D./dirk Electronically Signed By: ANA ROSA DODSON MD On: 03/23/2015 12:40 PM Source: [facility] MHSDOLBEYNONRADSYS Document Id: [id number] O VISUAL TECHNICIAN Op Note - Paul Burt M.D. - 03/21/2015 1:59 PM CST ASA STATUS _ASA 3 ASA SCORE EVIDENCED BY severe systemic disease PRE-OP DIAGNOSIS right shoulder pain PREVIOUS SURGERY/PROCEDURES cardiac cath and SHAHAB to middle RCA-2011 Colonoscopy, flexible, proximal to splenic flexure; diagnostic, with or without collection of specimen(s) by brushing or washing, with or without colon decompression (separate procedure)..: 02/01/10 Carpal tunnel release: 10/17/06 Colonoscopy: 09/09/03 Endarterectomy and angioplasty of neck artery: 08/21/99 Arthrodesis of wrist joint: 10/17/74 ALLERGIES NKA LAB RESULTS Hb 14.9, K 4.4, Cr 1.0 EKG NSR, Qwaves inferiorly X-RAY mild hyperinflation PAST MEDICAL/PROBLEM HISTORY weight 69 kg CAD s/p LA 2011- s/p SHAHAB middle RCA 2011 echo 2012- EF 62% no significant valvular disease 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 aspirin: See Instructions, Take by mouth daily.. atorvastatin: 80 mg, PO, Daily. calcium-vitamin D: . ezetimibe: 10 mg, 1 tab(s), PO, Daily, 90 tab(s). omeprazole: 20 mg, 1 cap(s), PO, Daily, 90 each. predniSONE: 5 mg, 1 tab(s), PO, Daily, 30 tab(s), 11 Refill(s). simvastatin: 80 mg, 1 tab(s), PO, Bedtime, 90 each. Medications Inactivated in the Last 72 Hours No medications found. 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, not specified as traumatic REASON FOR VISIT DX: FINAL DX: PRINCIPAL: M75.121 Y Complete rotator cuff tear or rupture of right shoulder, not specified as traumatic SECONDARY: I25.10 Y Atherosclerotic heart disease of alutiiq coronary artery without angina pectoris R00.1 Y Bradycardia, unspecified M35.3 Y Polymyalgia rheumatica E78.5 Y Hyperlipidemia, unspecified I10 Y Essential (primary) hypertension K21.9 Y Gastro-esophageal reflux disease without esophagitis Z87.891 Personal history of nicotine dependence Z98.61 Coronary angioplasty status Z79.82 termination clerk (current) use of aspirin PROCEDURES DOCTOR NAME DATE [id number] Replacement of Right Shoulder ANA ROSA DODSON 03/23/2015 Joint with Reverse Ball and Socket Synthetic Substitute, Open Approach NOTE: The code number assigned matches the documented diagnosis and / or procedure in the patient's chart. However, the narrative phrase printed from the coding software may appear abbreviated, or result in slightly different terminology. Coded By: BALAJI DESOUZA Date Saved: 04/04/2015 12:12 pm [facility] POWERCHART Document Id: [id number] Miscellaneous - Owen Vega R.N. - 03/24/2015 9:27 AM CST Hospital Patient Education The following Patient Education Materials have been given to the patient: Patient Education Materials: Rehabilitation After Shoulder Replacement Surgery: Your Home Recovery After Shoulder Replacement Surgery: Back in the Swing Rehabilitation After Shoulder Replacement Surgery: Your Home Recovery Call your doctor if you have: Increased pain Drainage, redness, or swelling around the incision A fever over 101.0??F At home, your goal is to return safely and comfortably to your normal activities. To get the most from your new shoulder, you need to take an active role in your recovery. Be sure to continue your exercise program and see your surgeon for follow-up exams. The First Months Remember that it takes 3-6 months for your shoulder to heal. Recovery from a fracture takes longer. You will have some pain and swelling at first. Your doctor may prescribe medication and suggest you use an ice bag. You may also continue to use your sling. Your exercise program will include more active use of your arm and shoulder. Its important to do your exercises exactly as directed to regain maximum strength and movement. Checking Your Progress Your sutures or gypsy will be removed 10-14 days after surgery. Your surgeon will continue to check the range of motion and strength in your shoulder for the first year after surgery, and may see youonce a year after that. Be sure to keep all your appointments and ask any questions you have. Your doctor may also recommend that you take antibiotics before you have dental work or surgery, and may give you a card that says you have a prosthesis. Use this card at security quinones with metal detectors. ?? [id number] [facility], [address] [place] [address], [place] [address]. All rights reserved. This information is not intended as a substitute for professional medical care. Always follow your healthcare professional's instructions. After Shoulder Replacement Surgery: Back in the Swing After shoulder replacement you can look forward to less pain and stiffness. You may also have more strength and movement in your shoulder and arm and be able to return to many of the activities you enjoy-like golf, swimming, bowling, gardening, or playing with your grandchildren. If you follow your exercise program and protect your shoulder, youll probably be back in the swing of things within a few months. Returning to Work When you can return to work depends on your surgery and the type of work you do. You may be able to go back to a desk job within a few weeks. Your doctor may tell you to resume some tasks gradually or to avoid other tasks until your shoulder heals. Your recovery will take longer if your work is more physical. In some cases, your doctor may advise you to change the kind of work you do to avoid overusing your shoulder. Remember... Your new shoulder is not designed for heavy impact. Think of it like the tread on a tire: It will wear out faster with hard use. So, you may want to make some choices about how you use yournew shoulder. ?? [phone] [facility], [address] [place] [address]. All rights reserved. This information is not intended as a substitute for professional medical care. Always follow your healthcare professional's instructions. This document has images extracted. Please consider using [employer] for all your patient education needs. Source: [facility] ComuniteeCHART Document Id: [id number] O VISUAL TECHNICIAN Rukhsanacellaneous - Jacquie Aranda - 03/24/2015 9:20 AM CST Hospital Patient Education The following Patient Education Materials have been given to the patient: Patient Education Materials: Source: [facility] [employer] Document Id: [id number] O VISUAL TECHNICIAN Rukhsanacellaneous - Owen Vega, RLaraN. - 03/24/2015 9:15 AM CST Adult Ongoing Assessment Adult Ongoing Assessment Entered On: 03/24/2015 9:21 AUDIO VISUAL TECHNICIAN Performed On: 03/24/2015 9:15 AUDIO VISUAL TECHNICIAN by OWEN VEGA RN Respiratory Respiratory Patient Stated Symptoms : None Respirations : Unlabored Distress : None Respiratory Pattern : Regular All Lobes Breath Sounds : Clear Cough : None Sputum Amount : None Suction : None Airway : Patent OWEN VEGA - 03/24/2015 9:15 AUDIO VISUAL TECHNICIAN Cardiovascular CV Patient Stated Symptoms : None Heart Rhythm : Regular Heart Sounds ICU : S1S2 Antiembolism Device Yes/No : Yes Nail Bed Color : [place] Capillary Refill : Less than 2 seconds Edema Assessment : No OWEN VEGA - 03/24/2015 9:15 AUDIO VISUAL TECHNICIAN Radial Pulse, Left : 2+ Normal Radial Pulse, Right : 2+ Normal Dorsalis Pedis Pulse, Left : 2+ Normal Dorsalis Pedis Pulse, Right : 2+ Normal OWEN VEGA [facility] 03/24/2015 9:15 AUDIO VISUAL TECHNICIAN Skin Color : Normal for ethnicity Skin Description : Dry Activity Tolerance : Minimal distress OWEN VEGA [facility] 03/24/2015 9:15 AUDIO VISUAL TECHNICIAN Antiembolism Device Antiembolism Device : Sequential Compression Device Antiembolism Device Laterality : Bilateral Compression Stockings : Knee High Antiembolism Device Status : On OWEN VEGA - 03/24/2015 9:15 AUDIO VISUAL TECHNICIAN Neurological Neuro Patient Stated Symptoms : None Orientation : Oriented x 3, Appropriate for age Level of Consciousness : Alert Gait : Steady Swallowing Difficulty/Aspiration Risk : None Last Well Time Known : Not applicable OWEN VEGA [facility] 03/24/2015 9:15 AUDIO VISUAL TECHNICIAN [place] Coma Eye Opening Response [place] : Spontaneously Best Verbal Response Pierre : Oriented Best Motor Response [place] : Obeys simple commands [place] Coma Score : 15 OWEN VEGA [facility] 03/24/2015 9:15 AUDIO VISUAL TECHNICIAN Oral Assessment Lips : Smooth, pink, moist, intact Gingiva : [place], smooth, moist, intact Tongue : Smooth, pink, moist, intact Teeth : Clean, no debris Saliva : Thin, watery, plentiful OWEN VEGA [facility] 03/24/2015 9:15 AUDIO VISUAL TECHNICIAN Psycho/Emotional Affect/Behavior : Calm, Cooperative, Appropriate Pain Symptoms : No OWEN VEGA [facility] 03/24/2015 9:15 AUDIO VISUAL TECHNICIAN Coping Grid Identifies effective strategies : Yes Uses effective strategies : Yes Reports increase in psychological comfort : Yes Indicates sense of control : Yes Stressors perceived within control : Yes Stable mood with appropriate affect : Yes Behaviors indicate use of coping mechanism : Yes Family supportive and involved in care : Yes Values/Beliefs incorporated appropriately : Yes OWEN VEGA RN - 03/24/2015 9:15 AUDIO VISUAL TECHNICIAN Safety Grid Vision, Hearing, Mobility Adequate to Meet Safety Needs : Yes OWEN VEGA RN - 03/24/2015 9:15 AUDIO VISUAL TECHNICIAN Gastrointestinal GI Patient Stated Symptoms : None Abdomen Description : Obese, Symmetric Abdomen Palpation : Non-Tender, Soft Bowel Movement Last Date : 03/22/2015 AUDIO VISUAL TECHNICIAN Bowel Sounds All Quadrants : Present OWEN VEGA RN - 03/24/2015 9:15 AUDIO VISUAL TECHNICIAN Nutrition Appetite : Excellent Eating Difficulties : None Feeding Ability : Complete independence OWEN VEGA RN - 03/24/2015 9:15 AUDIO VISUAL TECHNICIAN Genitourinary Patient Stated Symptoms : None Urine Color : Yellow Urine Description : Clear Urine Odor : Odorless Bladder Distention : Absent OWEN VEGA RN - 03/24/2015 9:15 AUDIO VISUAL TECHNICIAN Integumentary Integumentary Patient Stated Symptoms : None Skin Integrity : Not intact Mucous Membrane Color : [place] Mucous Membrane Description : Moist OWEN VEGA RN - 03/24/2015 9:15 AUDIO VISUAL TECHNICIAN Manufacturing Teacher Integumentary - Grid Manufacturing Teacher : Sequential Compression Device OWEN VEGA RN - 03/24/2015 9:15 AUDIO VISUAL TECHNICIAN Skin Color : Normal for ethnicity Skin Description : Dry Skin Temperature : Warm OWEN VEGA RN - 03/24/2015 9:15 AUDIO VISUAL TECHNICIAN Incision/Wound Incision/Wound Care Grid Activity : Assessed Type : Surgical incision Location : Shoulder Laterality : Right Drainage : None Drainage Amount : None Surrounding Tissue : Intact OWEN VEGA RN - 03/24/2015 9:15 AUDIO VISUAL TECHNICIAN Hawk Sensory Perception Hawk : No impairment Moisture Hawk : Rarely moist Activity Hawk : Walks occasionally Mobility Hawk : Slightly limited Nutrition Hawk : Excellent Friction and Shear Hawk : No apparent problem Hawk Score : 21 OWEN VEGA RN - 03/24/2015 9:15 AUDIO VISUAL TECHNICIAN Musculoskeletal Musculoskeletal Patient Stated Symptoms : None OWEN VEGA RN - 03/24/2015 9:15 AUDIO VISUAL TECHNICIAN Musculoskeletal Strength Grid Left Upper Extremity Right Upper Extremity Left Lower Extremity Right Lower Extremity Sensation : Normal Normal Normal Normal OWEN VEGA RN - 03/24/2015 9:15 AUDIO VISUAL TECHNICIAN OWEN VEGA RN - 03/24/2015 9:15 AUDIO VISUAL TECHNICIAN OWEN VEGA RN - 03/24/2015 9:15 AUDIO VISUAL TECHNICIAN OWEN VEGA RN - 03/24/2015 9:15 AUDIO VISUAL TECHNICIAN Peripheral IV Peripheral IV Assess/Intervention Grid Peripheral IV #1 Peripheral IV #2 IV Activity : Discontinue Start Number of Attempts : 1 Date of Insertion : 03/23/2015 AUDIO VISUAL TECHNICIAN 03/23/2015 AUDIO VISUAL TECHNICIAN IV Site : Forearm Antecubital Laterality : Left Left Catheter Size : 20 18 Catheter Type : Protective Site Condition : No complications Drainage Description : None Infiltration Score : 0 Phlebitis Score : 0 OWEN VEGA RN - 03/24/2015 9:15 AUDIO VISUAL TECHNICIAN OWEN VEGA RN - 03/24/2015 9:15 AUDIO VISUAL TECHNICIAN [place] II Fall Risk Confusion/Disorientation Hendrich : No Depression Fall Risk Hendrich : No Altered Elimination Fall Risk Hendrich : No Dizziness/Vertigo Fall Risk Hendrich : No Gender, Male Fall Risk Hendrich : Yes Prescribed Antiepileptics Hendrich : No Prescribed Benzodiazepines Hendrich : No Rising From Chair Fall Risk Hendrich : Able to rise in a single movement, no loss of balance with steps Fall Risk Score Hendrich II : 1 OWEN VEGA RN - 03/24/2015 9:15 AUDIO VISUAL TECHNICIAN Safe Patient Handling Safe Pt Handling Independent : Yes - No equipment needed Safe Pt Handling Equipment Rec : No Equipment Needed OWEN VEGA RN - 03/24/2015 9:15 AUDIO VISUAL TECHNICIAN Education General Patient Education Powergrid Topics : Activity limitations/expectations, Medication dosage, route, scheduling, Medication generic/brand names, purpose, action, Medication preadministration procedures, Medication precautions, side effects, food/drug interaction, Medication special administration, storage, Pain Management, Plan of care, Safety, fall, Use of pain scale(s), Wound care Individuals Taught : Patient Barriers to Learning : None evident Teaching Method : Demonstration, Explanation Teaching Evaluation : Verbalizes understanding OWEN VEGA RN - 03/24/2015 9:15 AUDIO VISUAL TECHNICIAN [facility] POWERCHART Document Id: [id number] AUDIO VISUAL TECHNICIAN!162 O VISUAL TECHNICIAN Miscellaneous - Alma Teixeira R.N. - 03/24/2015 3:24 AM CST Adult Ongoing Assessment Adult Ongoing Assessment Entered On: 03/24/2015 3:31 AUDIO VISUAL TECHNICIAN Performed On: 03/24/2015 3:24 AUDIO VISUAL TECHNICIAN by ALMA TEIXEIRA RN Respiratory Respiratory Patient Stated Symptoms : None Respirations : Unlabored Distress : None Respiratory Pattern : Regular All Lobes Breath Sounds : Clear Cough : None Sputum Amount : None Suction : None Airway : Patent ALMA TEIXEIRA RN - 03/24/2015 3:24 AUDIO VISUAL TECHNICIAN Cardiovascular CV Patient Stated Symptoms : None Heart Rhythm : Regular Antiembolism Device Yes/No : Yes Nail Bed Color : [place] Capillary Refill : Less than 2 seconds Edema Assessment : No Monitored Rhythm : Yes Pacer : No Skin Color : Normal for ethnicity Skin Description : Normal Skin Temperature : Warm Activity Tolerance : Moderate distress ALMA TEIXEIRA RN - 03/24/2015 3:24 AUDIO VISUAL TECHNICIAN Antiembolism Device Antiembolism Device : Sequential Compression Device Antiembolism Device Laterality : Bilateral Antiembolism Device Status : On ALMA TEIXEIRA RN - 03/24/2015 3:24 AUDIO VISUAL TECHNICIAN Neurological Neuro Patient Stated Symptoms : None Orientation : Oriented x 3 Level of Consciousness : Alert Gait : Unable to assess Swallowing Difficulty/Aspiration Risk : None Last Well Time Known : Not applicable ALMA TEIXEIRA RN - 03/24/2015 3:24 AUDIO VISUAL TECHNICIAN [place] Coma Eye Opening Response Pierre : Spontaneously Best Verbal Response Pierre : Oriented Best Motor Response Pierre : Obeys simple commands Pierre Coma Score : 15 ALMA TEIXEIRA RN - 03/24/2015 3:24 AUDIO VISUAL TECHNICIAN Psycho/Emotional Affect/Behavior : Calm, Cooperative, Appropriate Pain Symptoms : No Feels Rested : Yes ALMA TEIXEIRA RN - 03/24/2015 3:24 AUDIO VISUAL TECHNICIAN Coping Grid Identifies effective strategies : Yes Uses effective strategies : Yes Reports increase in psychological comfort : Yes Indicates sense of control : Yes Stressors perceived within control : Yes Stable mood with appropriate affect : Yes Behaviors indicate use of coping mechanism : Yes Family supportive and involved in care : Yes Values/Beliefs incorporated appropriately : Yes ALMA TEIXEIRA RN - 03/24/2015 3:24 AUDIO VISUAL TECHNICIAN Safety Grid Vision, Hearing, Mobility Adequate to Meet Safety Needs : Yes ALMA TEIXEIRA RN - 03/24/2015 3:24 AUDIO VISUAL TECHNICIAN Gastrointestinal Abdomen Description : Flat Abdomen Palpation : Non-Tender Bowel Movement Last Date : 03/22/2015 AUDIO VISUAL TECHNICIAN Bowel Sounds All Quadrants : Present Passing Flatus : Yes ALMA TEIXEIRA RN - 03/24/2015 3:24 AUDIO VISUAL TECHNICIAN Nutrition Appetite : Good Eating Difficulties : None Feeding Ability : Complete independence ALMA TEIXEIRA RN - 03/24/2015 3:24 AUDIO VISUAL TECHNICIAN Genitourinary Patient Stated Symptoms : None Urinary Elimination : Voiding, no difficulties Urine Color : Yellow Urine Description : Clear Urine Odor : Odorless ALMA TEIXEIRA RN - 03/24/2015 3:24 AUDIO VISUAL TECHNICIAN Integumentary Skin Color : Normal for ethnicity Skin Description : Normal Skin Temperature : Warm ALMA TEIXEIRA RN - 03/24/2015 3:46 AUDIO VISUAL TECHNICIAN Integumentary Patient Stated Symptoms : None Skin Turgor : Elastic Skin Integrity : Not intact Mucous Membrane Color : [place] Mucous Membrane Description : Moist ALMA TEIXEIRA RN - 03/24/2015 3:24 AUDIO VISUAL TECHNICIAN Manufacturing Teacher Integumentary - Grid Manufacturing Teacher : Sequential Compression Device ALMA TEIXEIRA RN - 03/24/2015 3:24 AUDIO VISUAL TECHNICIAN Incision/Wound Incision/Wound Care Grid Activity : Assessed Type : Surgical incision Location : Shoulder Laterality : Right Drainage : None ALMA TEIXEIRA RN - 03/24/2015 3:24 AUDIO VISUAL TECHNICIAN Hawk Sensory Perception Hawk : No impairment Moisture Hawk : Rarely moist Activity Hawk : Walks occasionally Mobility Hawk : Slightly limited Nutrition Hawk : Adequate Friction and Shear Hawk : No apparent problem Hawk Score : 20 ALMA TEIXEIRA RN - 03/24/2015 3:24 AUDIO VISUAL TECHNICIAN Musculoskeletal Musculoskeletal Patient Stated Symptoms : Joint stiffness Activity Tolerance : Minimal distress ALMA TEIXEIRA RN - 03/24/2015 3:24 AUDIO VISUAL TECHNICIAN Musculoskeletal Joint Asmt Ultragrid Joint Assessment #1 Location : Shoulder, right Assessment : No abnormalities ALMA TEIXEIRA RN - 03/24/2015 3:24 AUDIO VISUAL TECHNICIAN Peripheral IV Peripheral IV Assess/Intervention Grid Peripheral IV #1 Peripheral IV #2 IV Activity : Discontinue Start Number of Attempts : 1 Date of Insertion : 03/23/2015 AUDIO VISUAL TECHNICIAN 03/23/2015 AUDIO VISUAL TECHNICIAN IV Site : Forearm Antecubital Laterality : Left Left Catheter Size : 20 18 Catheter Type : Protective Infiltration Score : 0 Phlebitis Score : 0 ALMA TEIXEIRA RN - 03/24/2015 3:24 AUDIO VISUAL TECHNICIAN ALMA TEIXEIRA RN - 03/24/2015 3:24 AUDIO VISUAL TECHNICIAN [place] II Fall Risk Confusion/Disorientation Hendrich : No Depression Fall Risk Hendrich : No Altered Elimination Fall Risk Hendrich : No Dizziness/Vertigo Fall Risk Hendrich : No Gender, Male Fall Risk Hendrich : Yes Prescribed Antiepileptics Hendrich : No Prescribed Benzodiazepines Hendrich : No Rising From Chair Fall Risk Hendrich : Unable to rise without assistance Fall Risk Score Hendrich II : 5 ALMA TEIXEIRA RN - 03/24/2015 3:24 AUDIO VISUAL TECHNICIAN Safe Patient Handling Safe Pt Handling Independent : No Safe Pt Handling Supervision/Minimal Assistance : Yes - Unmotorized Equipment Safe Pt Handling Equipment Rec : Unmotorized Equipment ALMA TEIXEIRA RN - 03/24/2015 3:24 AUDIO VISUAL TECHNICIAN Source: [employer] Document Id: [id number] AUDIO VISUAL TECHNICIAN!5 O VISUAL TECHNICIAN Miscellaneous - Tanya Miller RLaraNLara - 03/23/2015 8:46 PM CST Adult Activities of Daily Living Adult Activities of Daily Living Entered On: 03/23/2015 20:49 AUDIO VISUAL TECHNICIAN Performed On: 03/23/2015 20:46 AUDIO VISUAL TECHNICIAN by TANYA MILLER RN ADLs I Activity Status ADL : Ambulating in malone, Ambulating in room, Bathroom privileges, Other: Ambulated full length of north hallway and back to room after being up in the chair Tolerated activity well. Settled into bed with sling inplace and pillow support to elbow Ice renewed prn Assistive Device : Gait belt, Trapeze Ambulation Patient Effort : Good Antiembolism Device : Sequential Compression Device Antiembolism Device Laterality : Bilateral TANYA MILLER RN - 03/23/2015 20:46 AUDIO VISUAL TECHNICIAN ADLs II Bowel Movement Last Date : 03/22/2015 AUDIO VISUAL TECHNICIAN Standard Safety : LOUISE/SCD/ED on per policy, Bed alarm ON, Bed in low position, Call device within reach, Gait belt, ID band check, Night light, Non-Slip footwear, Personal safety alarm ON, Rounds every 1 hour, Upper/Half-length side- rails up, Wheels locked TANYA MILLER RN - 03/23/2015 20:46 AUDIO VISUAL TECHNICIAN I&O Oral Intake : 200 mL Urine Voided : 300 mL GABRIEL TANYA MICKIE - 03/23/2015 20:46 AUDIO VISUAL TECHNICIAN Source: [facility] POWERCHART Document Id: [id number] AUDIO VISUAL TECHNICIAN!13 O VISUAL TECHNICIAN Miscellaneous - Tanya Miller R.N. - 03/23/2015 8:21 PM CST Adult Activities of Daily Living Adult Activities of Daily Living Entered On: 03/23/2015 20:23 AUDIO VISUAL TECHNICIAN Performed On: 03/23/2015 20:21 AUDIO VISUAL TECHNICIAN by TANYA MILLER RN ADLs I Patient Position : Sitting in chair GABRIEL TANYA MICKIE - 03/23/2015 20:21 AUDIO VISUAL TECHNICIAN ADLs II Hygiene Assistance Grid Back Rub : Refused Oral Care : Moderate assistance Estefania Care : Independent GABRIEL TANYA MICKIE - 03/23/2015 20:21 AUDIO VISUAL TECHNICIAN Bowel Movement Last Date : 03/22/2015 AUDIO VISUAL TECHNICIAN Standard Safety : LOUISE/SCD/ED on per policy, Bed in low position, Call device within reach, Chair Alarm, Gait belt, ID band check, Night light, Non-Slip footwear, Personal safety alarm ON, Rounds every1 hour, Upper/Half-length side- rails up GABRIEL TANYA MICKIE - 03/23/2015 20:21 AUDIO VISUAL TECHNICIAN I&O Oral Intake : 200 mL Urine Voided : 300 mL GABRIEL [facility] - 03/23/2015 20:21 AUDIO VISUAL TECHNICIAN ADLs Adult Nutrition Diet Type : Diet -- 03/23/15 12:16:00 AUDIO VISUAL TECHNICIAN, Transition, advance to regular Feeding Assistance : Independent Dinner : 100 % GABRIEL TANYA MICKIE - 03/23/2015 20:21 AUDIO VISUAL TECHNICIAN Source: [facility] Comunite[employer]CHART Document Id: [id number] AUDIO VISUAL TECHNICIAN!17 O VISUAL TECHNICIAN Rukhsanacellporsha - Tanya Miller R.N. - 03/23/2015 5:00 PM CST Adult Activities of Daily Living Adult Activities of Daily Living Entered On: 03/23/2015 17:01 AUDIO VISUAL TECHNICIAN Performed On: 03/23/2015 17:00 AUDIO VISUAL TECHNICIAN by TANYA MILLER RN ADLs I Patient Position : Sitting in chair TANYA MILLER RN - 03/23/2015 17:00 AUDIO VISUAL TECHNICIAN ADLs II Bowel Movement Last Date : 03/22/2015 AUDIO VISUAL TECHNICIAN Standard Safety : LOUISE/SCD/ED on per policy, Bed in low position, Call device within reach, Chair Alarm, Gait belt, ID band check, Night light, Non-Slip footwear, Personal safety alarm ON, Rounds every1 hour, Wheels locked TANYA MILLER RN - 03/23/2015 17:00 AUDIO VISUAL TECHNICIAN Source: [facility] Com[employer]ART Document Id: [id number] AUDIO VISUAL TECHNICIAN!6 O VISUAL TECHNICIAN Miscellaneous - Tanya Miller R.N. - 03/23/2015 4:00 PM CST Adult Postprocedure Assessment Adult Postprocedure Assessment Entered On: 03/23/2015 16:24 AUDIO VISUAL TECHNICIAN Performed On: 03/23/2015 16:00 AUDIO VISUAL TECHNICIAN by TANYA MILLER RN Vital Signs Temperature Core : 36.3 DegC(Converted to: 97.3 DegF) (LOW) Peripheral Pulse Rate : 61 /min Respiratory Rate : 20 /min Systolic Blood Pressure : 97 mmHg Diastolic Blood Pressure : 52 mmHg NIBP Mean : 67 mmHg (Comment: 64 [TANYA MILLER RN - 03/23/2015 16:22 AUDIO VISUAL TECHNICIAN] ) BP Location : Left upper extremity SpO2 : 95 % Oxygen Saturation Monitoring Frequency : Continuous Oxygen Therapy : Room air Height : 167 cm(Converted to: 5 ft 6 inch(es)) TANYA MILLER RN - 03/23/2015 16:22 AUDIO VISUAL TECHNICIAN General Level of Consciousness : Alert Orientation : Oriented x 3 Skin Color : Normal for ethnicity Skin Description : Dry Skin Temperature : Warm Pain Symptoms : No TANYA MILLER RN - 03/23/2015 16:22 AUDIO VISUAL TECHNICIAN Incision/Wound Incision/Wound Care Grid Activity : Assessed Type : Surgical incision Location : Shoulder Laterality : Right Drainage Amount : None Wound Dressing : Other: Aqua cell and sling TANYA MILLER RN - 03/23/2015 16:22 AUDIO VISUAL TECHNICIAN Source: [facility] POWERCHART Document Id: [id number] AUDIO VISUAL TECHNICIAN!29 O VISUAL TECHNICIAN Miscellaneous - Tanya Miller R.N. - 03/23/2015 3:45 PM CST Adult Postprocedure Assessment Adult Postprocedure Assessment Entered On: 03/23/2015 16:22 AUDIO VISUAL TECHNICIAN Performed On: 03/23/2015 15:45 AUDIO VISUAL TECHNICIAN by TANYA MILLER RN Vital Signs Height : 167 cm(Converted to: 5 ft 6 inch(es)) TANYA MILLER RN - 03/23/2015 15:45 AUDIO VISUAL TECHNICIAN General Level of Consciousness : Alert Orientation : Oriented x 3 Skin Color : Normal for ethnicity Skin Description : Dry Skin Temperature : Warm Pain Symptoms : No GABRIEL TANYA MICKIE - 03/23/2015 15:45 AUDIO VISUAL TECHNICIAN Cardiovascular Heart Rhythm : Regular Nail Bed Color : [place] Edema Assessment : No Capillary Refill : Less than 2 seconds TANYA MILLER RN - 03/23/2015 15:45 AUDIO VISUAL TECHNICIAN Radial Pulse, Left : 2+ Normal Radial Pulse, Right : 2+ Normal Dorsalis Pedis Pulse, Left : 2+ Normal Dorsalis Pedis Pulse, Right : 2+ Normal TANYA MILLER RN - 03/23/2015 15:45 AUDIO VISUAL TECHNICIAN Antiembolism Device : Sequential Compression Device Antiembolism Device Laterality : Bilateral TANYA MILLER RN - 03/23/2015 15:45 AUDIO VISUAL TECHNICIAN Respiratory Respiratory Patient Stated Symptoms : None Incentive Spirometry Volume Achieved : 2,200 mL Respirations : Unlabored Distress : None Respiratory Pattern : Regular All Lobes Breath Sounds : Clear Cough and Deep Breathe : Done Cough : None Sputum Amount : None TANYA MILLER RN - 03/23/2015 15:45 AUDIO VISUAL TECHNICIAN Incentive Spirometry Incentive Spirometry Volume Achieved : 2,200 mL Incentive Spirometry Times Performed : 5 Incentive Spirometry Patient Effort : Good Pt Participation in Treatment - IS : Cooperative Cough and Deep Breathe : Done Spontaneous Cough : No Cough : None TANYA MILLER RN - 03/23/2015 15:45 AUDIO VISUAL TECHNICIAN GI/ Nausea Symptoms : No Nursing Interventions : Patient given oral fluids, Patient given food Passing Flatus : Yes Abdomen Palpation : Non-Tender, Soft Bowel Sounds All Quadrants : Present Abdomen Description : Rounded Urinary Elimination : Voiding, no difficulties Urine Color : Yellow REYNA, October03/23/2015 15:45 AUDIO VISUAL TECHNICIAN Integumentary Integumentary Patient Stated Symptoms : None Skin Turgor : Elastic Skin Integrity : Not intact Mucous Membrane Color : [place] Mucous Membrane Description : Moist REYNA, October03/23/2015 15:45 AUDIO VISUAL TECHNICIAN Manufacturing Teacher Integumentary - Grid Manufacturing Teacher : Sequential Compression Device Assessment/Action : Removed and reapplied Skin Appearance : Normal [facility], October03/23/2015 15:45 AUDIO VISUAL TECHNICIAN Skin Color : Normal for ethnicity Skin Description : Dry Skin Temperature : Warm , October03/23/2015 15:45 AUDIO VISUAL TECHNICIAN Incision/Wound Incision/Wound Care Grid Activity : Assessed Type : Surgical incision Location : Shoulder Laterality : Right Drainage : None Wound Dressing : Other: Aqua cell / sling in place with pillow support to elbow [facility], October03/23/2015 15:45 AUDIO VISUAL TECHNICIAN Peripheral IV Peripheral IV Assess/Intervention Grid Peripheral IV #1 Peripheral IV #2 IV Activity : Discontinue Start Number of Attempts : 1 Date of Insertion : 03/23/2015 AUDIO VISUAL TECHNICIAN 03/23/2015 AUDIO VISUAL TECHNICIAN IV Site : Forearm Antecubital Laterality : Left Left Catheter Size : 20 18 Catheter Type : Protective Infiltration Score : 0 Phlebitis Score : 0 [facility], October03/23/2015 15:45 AUDIO VISUAL TECHNICIAN [facility], October03/23/2015 15:45 AUDIO VISUAL TECHNICIAN I&O Oral Intake : 200 mL Urine Voided : 400 mL [facility], October03/23/2015 15:45 AUDIO VISUAL TECHNICIAN Nutrition Dinner : 100 % [facility], October03/23/2015 15:45 AUDIO VISUAL TECHNICIAN Lower Extremity Lower Extremity Central Pulses Grid Femoral Pulse, Left : 2+ Normal Femoral Pulse, Right : 2+ Normal [facility], October03/23/2015 15:45 AUDIO VISUAL TECHNICIAN Lower Extremity Peripheral Pulses Grid Popliteal Pulse, Left : 2+ Normal Popliteal Pulse, Right : 2+ Normal Posttibial Pulse, Left : 2+ Normal Posttibial Pulse, Right : 2+ Normal Dorsalis Pedis Pulse, Left : 2+ Normal Dorsalis Pedis Pulse, Right : 2+ Normal [facility], October03/23/2015 15:45 AUDIO VISUAL TECHNICIAN Upper Extremity Nail Bed Color Hands Grid Left Hand : [place] Right Hand : [place] GABRIEL, October03/23/2015 15:45 AUDIO VISUAL TECHNICIAN Capillary Refill Hand Grid Left Hand : < 2 seconds Right Hand : < 2 seconds GABRIEL, October03/23/2015 15:45 AUDIO VISUAL TECHNICIAN Upper Extremity Color Grid Left : [place] Right : [place] GABRIEL, October03/23/2015 15:45 AUDIO VISUAL TECHNICIAN Upper Extremity Temperature Grid Left : Warm Right : Warm GABRIEL, October03/23/2015 15:45 AUDIO VISUAL TECHNICIAN NV Upper Extremity Pulses Grid Radial Pulse, Left : 2+ Normal Radial Pulse, Right : 2+ Normal Brachial Pulse, Left : 2+ Normal Brachial Pulse, Right : 2+ Normal GABRIEL, October03/23/2015 15:45 AUDIO VISUAL TECHNICIAN NV Upper Extremity Sensation Grid Dorsal Web Space Thumb/Index Finger Right : Numbness Distal Fat Pad/Small Finger Right : Numbness Distal Fat Pad/Index Finger Right : Numbness GABRIEL, October03/23/2015 15:45 AUDIO VISUAL TECHNICIAN Activity Activity Status ADL : Ambulating in malone, Ambulating in room, Bathroom privileges, Up to chair, Up with assistance Activity Assistance : Moderate 1 person assistance Assistive Device : Gait belt, Other: sling in place Positioning/Pressure Reducing Devices : Pillow GABRIEL, October03/23/2015 15:45 AUDIO VISUAL TECHNICIAN Vale Vale Agitation Sedation Scale (RASS) : Alert and calm RASS Score : 0 HUGOOctober03/23/2015 15:45 AUDIO VISUAL TECHNICIAN Hawk Sensory Perception Hawk : No impairment Moisture Hawk : Rarely moist Activity Hawk : Walks occasionally Mobility Hawk : Slightly limited Nutrition Hawk : Adequate Friction and Shear Hawk : No apparent problem Hawk Score : 20 REYNAOctober03/23/2015 15:45 AUDIO VISUAL TECHNICIAN Hendrich II Fall Risk Confusion/Disorientation Hendrich : No Depression Fall Risk Hendrich : No Altered Elimination Fall Risk Hendrich : No Dizziness/Vertigo Fall Risk Hendrich : No Gender, Male Fall Risk Hendrich : Yes Prescribed Antiepileptics Hendrich : No Prescribed Benzodiazepines Hendrich : No Rising From Chair Fall Risk Hendrich : Unable to rise without assistance Fall Risk Score Hendrich II : 5 October03/23/2015 15:45 AUDIO VISUAL TECHNICIAN Safe Patient Handling Safe Pt Handling Independent : Yes - No equipment needed Safe Pt Handling Equipment Rec : No Equipment Needed HUGOOctober03/23/2015 15:45 AUDIO VISUAL TECHNICIAN Education General Patient Education Powergrid Topics : Activity limitations/expectations, Equipment, Medication dosage, route, scheduling, Medication preadministration procedures, Medication precautions, side effects, food/drug interaction, Pain Management, Plan of care, Safety, fall, Use of pain scale(s), Wound care Individuals Taught : Barriers to Learning : None evident Teaching Method : Explanation Teaching Evaluation : Able to teach back, Needs reinforcement, Verbalizes understanding TANYA MILLER RN - 03/23/2015 15:45 AUDIO VISUAL TECHNICIAN Source: [facility] POWERCHART Document Id: [id number] AUDIO VISUAL TECHNICIAN!165 O VISUAL TECHNICIAN Miscellaneous - Radha Younger R.N. - 03/23/2015 1:15 PM CST Adult Postprocedure Assessment Adult Postprocedure Assessment Entered On: 03/23/2015 13:21 AUDIO VISUAL TECHNICIAN Performed On: 03/23/2015 13:15 AUDIO VISUAL TECHNICIAN by RADHA YOUNGER RN Vital Signs Height : 167 cm(Converted to: 5 ft 6 inch(es)) RADHA YOUNGER RN - 03/23/2015 13:15 AUDIO VISUAL TECHNICIAN General Level of Consciousness : Alert Orientation : Appropriate for age Skin Color : Normal for ethnicity Skin Description : Dry Skin Temperature : Warm Pain Symptoms : No RADHA YOUNGER RN - 03/23/2015 13:15 AUDIO VISUAL TECHNICIAN Cardiovascular Heart Rhythm : Regular Nail Bed Color : [place] Edema Assessment : No Capillary Refill : Less than 2 seconds RADHA YOUNGER RN - 03/23/2015 13:15 AUDIO VISUAL TECHNICIAN Radial Pulse, Left : 2+ Normal Radial Pulse, Right : 2+ Normal Brachial Pulse, Left : 2+ Normal Brachial Pulse, Right : 2+ Normal Popliteal Pulse, Left : 2+ Normal Popliteal Pulse, Right : 2+ Normal Posttibial Pulse, Left : 2+ Normal Posttibial Pulse, Right : 2+ Normal Dorsalis Pedis Pulse, Left : 2+ Normal Dorsalis Pedis Pulse, Right : 2+ Normal RADHA YOUNGER RN - 03/23/2015 13:15 AUDIO VISUAL TECHNICIAN Central Pulses Grid Carotid Pulse, Left : 2+ Normal Carotid Pulse, Right : 2+ Normal Femoral Pulse, Left : 2+ Normal Femoral Pulse, Right : 2+ Normal RADHA YOUNGER - 03/23/2015 13:15 AUDIO VISUAL TECHNICIAN Antiembolism Device : Sequential Compression Device Antiembolism Device Laterality : Bilateral CARISA RADHA - 03/23/2015 13:15 AUDIO VISUAL TECHNICIAN Respiratory Respiratory Patient Stated Symptoms : None Distress : None Respiratory Pattern : Regular All Lobes Breath Sounds : Clear Cough and Deep Breathe : Done Cough : None Sputum Color : Clear Suction : None Airway : Patent RADHA YOUNGER - 03/23/2015 13:15 AUDIO VISUAL TECHNICIAN Incentive Spirometry Incentive Spirometry Patient Effort : Good Pt Participation in Treatment - IS : Cooperative Cough and Deep Breathe : Done Spontaneous Cough : Yes Cough : None RADHA YOUNGER - 03/23/2015 13:15 AUDIO VISUAL TECHNICIAN GI/ Nausea Symptoms : No RADHA YOUNGER - 03/23/2015 13:15 AUDIO VISUAL TECHNICIAN Integumentary Integumentary Patient Stated Symptoms : None Skin Turgor : Elastic Skin Integrity : Not intact Mucous Membrane Color : [place] Mucous Membrane Description : Moist Skin Color : Normal for ethnicity Skin Description : Dry Skin Temperature : Warm RADHA YOUNGER - 03/23/2015 13:15 AUDIO VISUAL TECHNICIAN Incision/Wound Incision/Wound Care Grid Activity : Assessed Type : Surgical incision Location : Shoulder Laterality : Right RADHA YOUNGER - 03/23/2015 13:15 AUDIO VISUAL TECHNICIAN Peripheral IV Peripheral IV Assess/Intervention Grid Peripheral IV #1 Peripheral IV #2 IV Activity : Discontinue Start Number of Attempts : 1 Date of Insertion : 03/23/2015 AUDIO VISUAL TECHNICIAN 03/23/2015 AUDIO VISUAL TECHNICIAN IV Site : Forearm Antecubital Laterality : Left Left Catheter Size : 20 18 Catheter Type : Protective Site Condition : No complications RADHA YOUNGER - 03/23/2015 13:15 AUDIO VISUAL TECHNICIAN RADHA YOUNGER - 03/23/2015 13:15 AUDIO VISUAL TECHNICIAN Upper Extremity Nail Bed Color Hands Grid Left Hand : [place] Right Hand : [place] RADHA YOUNGER - 03/23/2015 13:15 AUDIO VISUAL TECHNICIAN Capillary Refill Hand Grid Left Hand : < 2 seconds Right Hand : < 2 seconds RADHA YOUNGER - 03/23/2015 13:15 AUDIO VISUAL TECHNICIAN Upper Extremity Color Grid Left : [place] Right : [place] RADHA YOUNGER - 03/23/2015 13:15 AUDIO VISUAL TECHNICIAN Upper Extremity Temperature Grid Left : Warm Right : Warm RADHA YOUNGER - 03/23/2015 13:15 AUDIO VISUAL TECHNICIAN NV Upper Extremity Sensation Grid Dorsal Web Space Thumb/Index Finger Right : Numbness Distal Fat Pad/Small Finger Right : Numbness Distal Fat Pad/Index Finger Right : Numbness RADHA YOUNGER RN - 03/23/2015 13:15 AUDIO VISUAL TECHNICIAN Activity Patient Position : Elevate head of bed 30 degrees, Sitting in bed Activity Status ADL : Reposition every 2 hours, Up with assistance Activity Assistance : Moderate 1 person assistance Assistive Device : Gait belt RADHA YOUNGER - 03/23/2015 13:15 AUDIO VISUAL TECHNICIAN Modified Elenita Activity : Moves 4 extremities voluntarily or on command Respiratory : Able to deep breathe and cough freely Circulation : BP 20-49% of preanesthetic level Consciousness : Fully awake O2 Saturation : Needs oxygen to maintain > 92% Elenita l Score : 8 RADHA YOUNGER RN - 03/23/2015 13:15 AUDIO VISUAL TECHNICIAN PARSAP Activity Status : Moves 4 extremities voluntarily or on command Dressing : Dry and clean Respiratory Component : Able to deep breathe and cough freely Pain : Pain free Circulation Component : BP 20-49% of preanesthetic level Ambulation : Able to stand up and walk straight Consciousness : Fully awake Fasting and Feeding : Able to drink fluids Oxygen Saturation - Sedation : Can maintain > 92% on room air Urine Output, PARSAP : Has voided PARSAP Score : 19 RADHA YOUNGER RN - 03/23/2015 13:15 AUDIO VISUAL TECHNICIAN [place] Agitation Sedation Scale (RASS) : Alert and calm RASS Score : 0 RADHA YOUNGER - 03/23/2015 13:15 AUDIO VISUAL TECHNICIAN Hawk Sensory Perception Hawk : No impairment Moisture Hawk : Rarely moist Activity Hawk : Walks occasionally Mobility Hawk : Slightly limited Nutrition Hawk : Adequate Friction and Shear Hawk : No apparent problem Hawk Score : 20 RADHA YOUNGER - 03/23/2015 13:15 AUDIO VISUAL TECHNICIAN Hendrich II Fall Risk Confusion/Disorientation Hendrich : No Depression Fall Risk Hendrich : No Altered Elimination Fall Risk Hendrich : No Dizziness/Vertigo Fall Risk Hendrich : No Gender, Male Fall Risk Hendrich : Yes Prescribed Antiepileptics Hendrich : No Prescribed Benzodiazepines Hendrich : No Rising From Chair Fall Risk Hendrich : Multiple attempts but successful Fall Risk Score Hendrich II : 4 RADHA YOUNGER - 03/23/2015 13:15 AUDIO VISUAL TECHNICIAN Safe Patient Handling Safe Pt Handling Independent : No Safe Pt Handling Supervision/Minimal Assistance : Yes - Unmotorized Equipment Safe Pt Handling Equipment Rec : Unmotorized Equipment RADHA YOUNGER RN - 03/23/2015 13:15 AUDIO VISUAL TECHNICIAN Education General Patient Education Powergrid Topics : Pain Management, Safety, fall RADHA YOUNGER RN - 03/23/2015 13:15 AUDIO VISUAL TECHNICIAN Source: [facility] POWERCHART Document Id: [id number] AUDIO VISUAL TECHNICIAN!154 O VISUAL TECHNICIAN Miscellaneous - Arit Almaguer R.N. - 03/23/2015 12:59 PM CST Adult Postprocedure Assessment Adult Postprocedure Assessment Entered On: 03/23/2015 13:03 AUDIO VISUAL TECHNICIAN Performed On: 03/23/2015 12:59 AUDIO VISUAL TECHNICIAN by ARTI ALMAGUER RN Vital Signs Temperature Core : 36.5 DegC(Converted to: 97.7 DegF) Peripheral Pulse Rate : 50 /min (LOW) Respiratory Rate : 16 /min Systolic Blood Pressure : 122 mmHg Diastolic Blood Pressure : 60 mmHg NIBP Mean : 81 mmHg SpO2 : 97 % Oxygen Saturation Monitoring Frequency : Intermittent Oxygen Flow Rate : 2 L/min Oxygen Therapy : Nasal cannula Height : 167 cm(Converted to: 5 ft 6 inch(es)) ARTI ALMAGUER RN - 03/23/2015 12:59 AUDIO VISUAL TECHNICIAN General Level of Consciousness : Alert Orientation : Oriented x 3 Skin Color : Normal for ethnicity Skin Description : Normal Skin Temperature : Warm Pain Symptoms : No (Comment: Denies pain [ARTI ALMAGUER RN - 03/23/2015 12:59 AUDIO VISUAL TECHNICIAN] ) ARTI ALMAGUER RN - 03/23/2015 12:59 AUDIO VISUAL TECHNICIAN Upper Extremity Nail Bed Color Hands Grid Left Hand : [place] Right Hand : [place] ARTI ALMAGUER RN - 03/23/2015 12:59 AUDIO VISUAL TECHNICIAN Capillary Refill Hand Grid Left Hand : < 2 seconds Right Hand : < 2 seconds ARTI ALMAGUER RN - 03/23/2015 12:59 AUDIO VISUAL TECHNICIAN Upper Extremity Color Grid Left : [place] Right : [place] ARTI ALMAGUER RN - 03/23/2015 12:59 AUDIO VISUAL TECHNICIAN Upper Extremity Temperature Grid Left : Warm Right : Warm ARTI ALMAGUER RN - 03/23/2015 12:59 AUDIO VISUAL TECHNICIAN NV Upper Extremity Sensation Grid Dorsal Web Space Thumb/Index Finger Right : Numbness (Comment: due to block [ARTI ALMAGUER RN - 03/23/2015 12:59 AUDIO VISUAL TECHNICIAN] ) Distal Fat Pad/Small Finger Right : Numbness (Comment: due to block [ARTI ALMAGUER RN - 03/23/2015 12:59 AUDIO VISUAL TECHNICIAN] ) Distal Fat Pad/Index Finger Right : Numbness (Comment: due to block [ARTI ALMAGUER RN - 03/23/2015 12:59 AUDIO VISUAL TECHNICIAN] ) ARTI ALMAGUER RN - 03/23/2015 12:59 AUDIO VISUAL TECHNICIAN Source: [facility] ComuniteeCHART Document Id: [id number] AUDIO VISUAL TECHNICIAN!37 O VISUAL TECHNICIAN Transfer of Care - Shira Dias R.N. - 03/23/2015 11:58 AM CST Intrahospital Transfer Intrahospital Transfer Entered On: 03/23/2015 11:59 AUDIO VISUAL TECHNICIAN Performed On: 03/23/2015 11:58 AUDIO VISUAL TECHNICIAN by SHIRA DIAS RN Transfer Intrahospital Transfer Mode : Cart Nurse Receiving Report : pascale CORADO Date/Time Nurse Received Report : 03/23/2015 11:45 AUDIO VISUAL TECHNICIAN Reason for Intrahospital Transfer : Improved condition Blood Products Received : No Transfer Notification : Spouse SHIRA DIAS RN - 03/23/2015 11:58 AUDIO VISUAL TECHNICIAN Source: [facility] Document Id: [id number] AUDIO VISUAL TECHNICIAN!8 O VISUAL TECHNICIAN Miscellaneous - Shira Dias R.N. - 03/23/2015 11:51 AM CST Adult Postprocedure Assessment Adult Postprocedure Assessment Entered On: 03/23/2015 11:58 AUDIO VISUAL TECHNICIAN Performed On: 03/23/2015 11:51 AUDIO VISUAL TECHNICIAN by SHIRA DIAS RN Vital Signs Height : 167 cm(Converted to: 5 ft 6 inch(es)) SHIRA DIAS RN - 03/23/2015 11:57 AUDIO VISUAL TECHNICIAN Incision/Wound Incision/Wound Care Grid Activity : Assessed Type : Surgical incision Location : Shoulder Laterality : Right Drainage : None SHIRA DIAS RN - 03/23/2015 11:57 AUDIO VISUAL TECHNICIAN Source: [facility] POWERCHART Document Id: [id number] AUDIO VISUAL TECHNICIAN!11 O VISUAL TECHNICIAN Miscellaneous - Shira Dias R.N. - 03/23/2015 10:55 AM CST Adult Postprocedure Assessment Adult Postprocedure Assessment Entered On: 03/23/2015 11:06 AUDIO VISUAL TECHNICIAN Performed On: 03/23/2015 10:55 AUDIO VISUAL TECHNICIAN by SHIRA DIAS RN Vital Signs Respiratory Rate : 16 /min Oxygen Flow Rate : 2 L/min Oxygen Therapy : Nasal cannula Height : 167 cm(Converted to: 5 ft 6 inch(es)) SHIRA DIAS RN - 03/23/2015 11:02 AUDIO VISUAL TECHNICIAN General Level of Consciousness : Drowsy Orientation : Oriented x 3 Skin Color : Normal for ethnicity Skin Description : Dry Skin Temperature : Warm Pain Symptoms : No SHIRA DIAS RN - 03/23/2015 11:02 AUDIO VISUAL TECHNICIAN Integumentary Integumentary Patient Stated Symptoms : None Skin Integrity : Not intact SHIRA DIAS RN - 03/23/2015 11:02 AUDIO VISUAL TECHNICIAN Incision/Wound Incision/Wound Care Grid Activity : Assessed Type : Surgical incision Location : Shoulder Laterality : Right Drainage : None SHIRA DIAS RN - 03/23/2015 11:02 AUDIO VISUAL TECHNICIAN Peripheral IV Peripheral IV Assess/Intervention Grid Peripheral IV #1 Peripheral IV #2 IV Activity : Discontinue Start Number of Attempts : 1 Date of Insertion : 03/23/2015 AUDIO VISUAL TECHNICIAN 03/23/2015 AUDIO VISUAL TECHNICIAN IV Site : Forearm Antecubital Laterality : Left Left Catheter Size : 20 18 Catheter Type : Protective Site Condition : No complications Comments (Comment: discontinued in OR, positional [SHIRA DIAS RN - 03/23/2015 11:02 AUDIO VISUAL TECHNICIAN] ) (Comment: started in OR [SHIRA DIAS RN - 03/23/2015 11:02 AUDIO VISUAL TECHNICIAN] ) SHIRA DIAS RN - 03/23/2015 11:02 AUDIO VISUAL TECHNICIAN SHIRA DIAS RN - 03/23/2015 11:02 AUDIO VISUAL TECHNICIAN I&O Other Intake : 1,400 mL Urine Voided : 300 mL Estimated Blood Loss : 300 mL SHIRA DIAS RN - 03/23/2015 11:02 AUDIO VISUAL TECHNICIAN Modified Elenita Activity : Moves 4 extremities voluntarily or on command Respiratory : Able to deep breathe and cough freely Circulation : BP +/- 20% of preprocedural level or not unusually high or low Consciousness : Arouses on calling O2 Saturation : Needs oxygen to maintain > 92% Elenita l Score : 8 SHIRA DIAS RN - 03/23/2015 11:02 AUDIO VISUAL TECHNICIAN Source: [employer] Document Id: [id number] AUDIO VISUAL TECHNICIAN!52 O VISUAL TECHNICIAN Miscellaneous - Brandi Millard RSelvin - 03/23/2015 6:38 AM CST Adult Admission Assessment Adult Admission Assessment Entered On: 03/23/2015 6:42 AUDIO VISUAL TECHNICIAN Performed On: 03/23/2015 6:38 AUDIO VISUAL TECHNICIAN by BRNADI MILLARD RN Respiratory Respiratory Patient Stated Symptoms : None Respirations : Unlabored Distress : None Respiratory Pattern : Regular All Lobes Breath Sounds : Clear Cough : None BRANDI MILLARD RN - 03/23/2015 6:38 AUDIO VISUAL TECHNICIAN Cardiovascular CV Patient Stated Symptoms : None Antiembolism Device Yes/No : Yes BRANDI MILLARD RN - 03/23/2015 6:38 AUDIO VISUAL TECHNICIAN Antiembolism Device Antiembolism Device Laterality : Bilateral BRANDI MILLARD RN - 03/23/2015 6:38 AUDIO VISUAL TECHNICIAN Neurological Neuro Patient Stated Symptoms : None Orientation : Oriented x 3 Level of Consciousness : Alert Gait : Steady Swallowing Difficulty/Aspiration Risk : None BRANDI MILLARD RN - 03/23/2015 6:38 AUDIO VISUAL TECHNICIAN [place] Coma Eye Opening Response Pierre : Spontaneously Best Verbal Response [place] : Oriented Best Motor Response Pierre : Obeys simple commands Pierre Coma Score : 15 BRANDI MILLARD RN - 03/23/2015 6:38 AUDIO VISUAL TECHNICIAN Psycho/Emotional Pain Symptoms : No BRANDI MILLARD RN - 03/23/2015 6:38 AUDIO VISUAL TECHNICIAN Gastrointestinal GI Patient Stated Symptoms : None Bowel Movement Last Date : 03/22/2015 AUDIO VISUAL TECHNICIAN BRANDI MILLARD RN - 03/23/2015 6:38 AUDIO VISUAL TECHNICIAN Integumentary Skin Integrity : Intact BRANDI MILLARD RN - 03/23/2015 6:38 AUDIO VISUAL TECHNICIAN Peripheral IV Peripheral IV Assess/Intervention Grid Peripheral IV #1 IV Activity : Start Number of Attempts : 1 Date of Insertion : 03/23/2015 AUDIO VISUAL TECHNICIAN IV Site : Forearm Laterality : Left Catheter Size : 20 BRANDI MILLARD RN - 03/23/2015 7:27 AUDIO VISUAL TECHNICIAN Hendrich II Fall Risk Confusion/Disorientation Hendrich : No Depression Fall Risk Hendrich : No Altered Elimination Fall Risk Hendrich : No Dizziness/Vertigo Fall Risk Hendrich : No Gender, Male Fall Risk Hendrich : Yes Prescribed Antiepileptics Hendrich : No Prescribed Benzodiazepines Hendrich : No Rising From Chair Fall Risk Hendrich : Able to rise in a single movement, no loss of balance with steps Fall Risk Score Hendrich II : 1 BRANDI MILLARD RN - 03/23/2015 6:38 AUDIO VISUAL TECHNICIAN [facility] Document Id: [id number] AUDIO VISUAL TECHNICIAN!10 O VISUAL TECHNICIAN Miscellaneous - Brandi Millard R.N. - 03/23/2015 6:38 AM CST Adult Admission History Adult Admission History Entered On: 03/23/2015 6:46 AUDIO VISUAL TECHNICIAN Performed On: 03/23/2015 6:38 AUDIO VISUAL TECHNICIAN by BRANDI MILLARD RN General Info Preferred Name : Ryley Admitted From : Non-Health Care Facility Point of Origin Mode of Arrival : Ambulatory Accompanied By : Spouse Chief Complaint : right shoulder Preferred Communication Mode : Verbal Information Given By : Patient Languages : Icelandic Have you received chemotherapy in last 48 hours? : No Is Patient Female and 13-50 no hysterectomy : No BRANDI MILLARD RN - 03/23/2015 6:38 AUDIO VISUAL TECHNICIAN Anesth/Transfusion Anesthesia/Transfusions : Prior anesthesia reaction Anesthesia Reaction : Excessive post op nausea Transfusion Acceptable in Emergency : Yes Moravian/Other Objections to Blood Transfusions : No BRANDI MILLARD RN - 03/23/2015 6:38 AUDIO VISUAL TECHNICIAN Nutrition Have you recently lost weight without trying? : No Decreased Appetite Nutrition : No Tube Feedings or Parenteral Nutrition : No MST Score : 0 BRANDI MILLARD RN - 03/23/2015 6:38 AUDIO VISUAL TECHNICIAN Home Environment Current Daily Living Assistance : None Sensory Deficits : None BRANDI MILLARD RN - 03/23/2015 6:38 AUDIO VISUAL TECHNICIAN Dependent Habits Alcohol Use : No BRANDI MILLARD RN - 03/23/2015 6:38 AUDIO VISUAL TECHNICIAN Caffeine Use Grid Caffeine Use : Current Type : Coffee Frequency : Daily BRANDI MILLARD RN - 03/23/2015 6:38 AUDIO VISUAL TECHNICIAN Psychosocial Adult Domestic Abuse Concerns : None Behavioral Health Screen/Safety Assmt : No Moravian Preference : Adventist BRANDI MILLARD RN - 03/23/2015 6:38 AUDIO VISUAL TECHNICIAN Advance Directive Advanced Directives : No Advance Directive Additional Information : No BRANDI MILLARD RN - 03/23/2015 6:38 AUDIO VISUAL TECHNICIAN Educ Needs Patient/Family Education Needs : Postoperative instructions, Preoperative instructions BRANDI MILLARD RN - 03/23/2015 6:38 AUDIO VISUAL TECHNICIAN Learning Style Preference Adult Grid Patient : Verbal explanation Family : Verbal explanation BRANDI MILLARD RN - 03/23/2015 6:38 AUDIO VISUAL TECHNICIAN Source: [facility] POWERCHART Document Id: [id number] AUDIO VISUAL TECHNICIAN!44 O VISUAL TECHNICIAN documented in this encounter Plan of Treatment Not on filedocumented as of this encounter Procedures Procedure Name Priority Date/Time Associated Comments Diagnosis CBC WITHOUT Routine 03/24/2015 5:50 AM Results f or this DIFFERENTIAL, B AUDIO VISUAL TECHNICIAN procedure ar e in the results section. COMPREHENSIVE Routine 03/24/2015 5:50 AM Results for this METABOLIC PANEL, S/P AUDIO VISUAL TECHNICIAN procedu re are in the results section. documented in this encounter Results (ABNORMAL) CBC without Differential (03/24/2015 5:50 AM AUDIO VISUAL TECHNICIAN) Analysis Performed At Patho logist Time Signature Hematocrit 36.6 (L) 38.8 - POWERCHART 50.0 Hemoglobin 12.5 (L) 13.5 - POWERCHART 17.5 GDL MCV 90.6 81.0 - POWERCHART 95.0 FL Platelet Count 214 150 - 450 POWERCHART X109L Erythrocytes 4.04 (L) 4.32 - POWERCHART 5.72 [id number] HX RDW 13.8 11.8 - POWERCHART 15.6 Leukocytes 10.8 (H) 3.5 - 10.5 POWERCHART X109L Specimen (Source) Anatomical Collection Method Collection Time Re ceived Time Location / / Volume Laterality Blood 03/24/2015 5:50 AM AUDIO VISUAL TECHNICIAN Karel Coronel M.D. LAB BLOOD ADD-ON Performing Organization Address City/State/ZIP Code Phon e Number POWERCHART (ABNORMAL) CMP (Comprehensive Metabolic Panel) (03/24/2015 5:50 AM AUDIO VISUAL TECHNICIAN) [facility] gist Method Time Signature Chloride, S 103 98 - 107 POWERCHART MMOLL Sodium, S 141 135 - 145 POWERCHART MMOLL Potassium, S 3.9 3.6 - 5.2 POWERCHART MMOLL Anion Gap 13 10 - 20 POWERCHART MMOLL Alkaline 106 45 - 115 POWERCHART Phosphatase, S UL Alanine 23 7 - 55 UL POWERCHART Amniotransferase, LD Aspartate 32 8 - 48 UL POWERCHART Aminotransferase (AST), S Bilirubin, Total, S 0.6 0.1 - 1.0 POWERCHART MGDL BUN (Blood Urea 14 8 - 24 POWERCHART Nitrogen), S MGDL CO2 Total 25 22 - 29 POWERCHART MMOLL Creatinine, S 0.95 0.80 - POWERCHART 1.30 MGDL Glucose, Fasting, S 110 (H) 70 - 99 POWERCHART MGDL Total Protein, S 6.0 (L) 6.3 - 7.9 POWERCHART GDL Calcium, Total, S 8.8 8.8 - POWERCHART 10.3 MGDL Albumin, S 3.4 (L) 3.5 - 5.0 POWERCHART GDL eGFR Black/ >60 >=60 POWERCHART [place] [id number] 2 HXeGFR (MDRD) >60 >=60 POWERCHART [id number] 2 Comment: Results are in mL/min/1.73m CKD Stage I: ? GFR > 90 CKD Stage II: ?GFR 60 to 89 CKD Stage III: ? GFR 30 to 59 CKD Stage IV: ? GFR 15 to 29 CKD Stage V: ?GFR < 15 or Dialysi s Specimen (Source) Anatomical Collection Method Collection Time Re ceived Time Location / / Volume Laterality Blood 03/24/2015 5:50 AM AUDIO VISUAL TECHNICIAN Karel Coronel M.D. LAB BLOOD ADD-ON Performing Organization Address City/State/ZIP Code Phon e Number POWERCHART documented in this encounter Visit Diagnoses Not on filedocumented in this encounter Additional Health Concerns Assessment Noted Time PHQ-9 Depression Total Score: 2 03/08/2015 11:16 AM CS T documented as of this encounter
--- OUTSIDE RECORDS SUMMARY | 2021-12-17 09:49 | XMS_ITS | Encounter Summary ---
:1940 Author Organization [facility] Address [address] [place] [address] Care Team Providers Name Role Phone Unavailable Primary Care Provider Unavailable Encounter Details Date Type Department Care Team Description 08/08/2015 Hospital Encounter HX [facility] ENT Maggie Osborne M.D. [address] [place], [place] [phone] (Wo rk) Social History Tobacco Use Types Packs/Day Years Used Date Smoking Tobacco: Never Assessed Sex Assigned at Date Recorded Not on file documented as of this encounter Last Filed Vital Signs Vital Sign Reading Time Taken Comments Blood Pressure 121/71 08/08/2015 8:19 AM CDT Pulse 62 08/08/2015 8:19 AM CDT Temperature - - Respiratory Rate - - Oxygen Saturation - - Inhaled Oxygen Concentration - - Weight - [...] metFORMIN (GLUCOPHAGE) Take 1-2 tablets by 0 /05/201301/21/2020 500 mg tablet mouth 2 (two) times [...] mouth daily. documented as of this encounter Consult Notes Maggie Osborne M.D. - 08/08/2015 8:04 AM CDT [id number] Mr. Vines is a pleasant 75-year-old gentleman. CHIEF COMPLAINT/REASON FOR VISIT Blood in ear canals, consult at the request of Laila Loco CNP, [facility]. HISTORY OF PRESENT ILLNESS Mr. Vines reports recently he was noted to have blood in both ears. He was told they look different. He had a history of cerumen impaction which is typically uneventfully debrided at [facility]. He said recently he used a toothpick in the right ear only but there was no associated pain or bleeding at that time. He has not seen any fresh blood or bleeding or drainage of any kind from either ear. He denies any pain, tinnitus or vertigo. 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 At Laila Loco's request (July 27, 2015 note reviewed and appreciated) he did see his hearing aid dealer who felt that the hearing aids were not responsible for any issues in the ear canal. ADULT NEW PATIENT QUESTIONNAIRE: The NPQ is filled out by the patient and is reviewed including 10-system review of systems, past medical history, surgical history, social history, and family history. SOCIAL HISTORY No tobacco. 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 PHYSICAL EXAMINATION GENERAL: He appears well. No distress. FACE: Normal symmetric strength. EXTERNAL: Ears and nose normal. OTOSCOPIC: Canals show scant minimal inconsequential cerumen near the meatus. The medial canal is essentially normal. There is a slight residual bruise on the floor of the right mid canal. No ulceration or mass affect. TMs normal. NECK: No palpable cervical lymphadenopathy or neck masses. No palpable thyroid or salivary gland enlargement. Voice normal. Quiet respirations without stridor. IMPRESSION/REPORT/PLAN 1. Abrasion/ecchymosis, right ear. 2. No significant residual cerumen. PLAN: Reassured Mr. Vines. Counseled regarding avoiding canal trauma with either Q-tips or a toothpick. He voiced understanding and agreement. Return care to Laila Loco. I would be happy to see him back on an as- needed basis otherwise. Maggie Osborne M.D./dirk cc: Laila Loco, PECAN GROWER, COMMERCIAL CREDIT SPECIALIST [facility] [address] [place] [address] Electronically Signed By: MAGGIE OSBORNE MD On: 08/15/2015 07:59 AM Source: [facility] MHSDOLBEYNONRADSYS Document Id: [id number] documented in this encounter Miscellaneous Notes Miscellaneous - Maggie Osborne M.D. - 08/08/2015 9:11 AM CDT Ambulatory Patient Summary [facility] [address], [address] [place], [place] [id number] Visit Information Name: RYLEY VINES [facility] Number: [id number] Current Date: 08/08/2015 09:11:13 Physicians Attending Provider: MAGGIE OSBORNE MD Primary Care Provider: PCP, ELSEWHERE RYLEY VINES has been given the following list of follow-up instructions, medication list, andpatient education materials: Follow-up Instructions Your Medications Here is a list of your medications. It is important to take your medications as directed. Use a pillbox or chart to help remind you to take your medications. Please let your doctor or nurse know if you have problems taking your medications. Medication/Strength How to Take Indications/Special Instructions/Comments/Notes for Patient Medication Changes/Routing aspirin (aspirin 81 mg oral tablet) See Instructions Take by mouth daily. atorvastatin (atorvastatin 80 mg oral tablet) 80 mg, Oral, once a day calcium-vitamin D (Calcium 600+D) 1 tab, Oral, once a day ezetimibe (Zetia 10 mg oral tablet) 1 Tablet(s), Oral, once a day metoprolol (Metoprolol Tartrate 25 mg oral tablet) 0.5 Tablet(s), Oral, once a day omeprazole (Prilosec 20 mg oral delayed release capsule) 1 cap, Oral, once a day predniSONE (predniSONE 5 mg oral tablet) 0.5 Tablet(s), Oral, once a day Stop Taking the Following Medications: Medication list as of 08-08-15 09:11 Attention: If you have any medications at home that are not on this list, DO NOT take them until youcontact your provider for clarification. Give a copy of your medication list to your primary care provider. Update your medication list any time medications or doses are changed and carry your medication list at all times in case of emergency. 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 Consider Using Patient Online Services Patient Online Services is a secure online and Mobile application that lets you: ?? View lab and test results ?? View portions of your medical record including clinical notes, immunizations and discharge summaries ?? Request an appointment or medication refill ?? Review your appointment schedule ?? Send secure messages to your care team Its easy to create an account if you dont have one. Go to [email or web address] and click on Create Your Account. Then, follow the directions to complete the online form. Youll be asked for your [facility] number which you can find at the top of this document. Your Goals/Additional instructions: Source: [facility] POWERCHART Document Id: [id number] Miscellaneous - Maggie Osborne M.D. - 08/08/2015 9:11 AM CDT Ambulatory Discharge Medication List [facility] [address], [address] [place], [place] [phone] Visit Information Name: RYLEY VINES [facility] Number: [id number] Visit Date: 08/08/2015 09:11:13 Attending Provider: MAGGIE OSBORNE MD Primary Care Provider: PCP, ELSEWHERE RYLEY VINES has been given the following list of medications: Your Medications It is important to take your medications as directed. Use a pill box or chart to help remind you to take your medications. Please let your doctor or nurse know if you have problems taking your medications. Medication/Strength How to Take Indications/Special Instructions/Comments/Notes for Patient Medication Changes/Routing aspirin (aspirin 81 mg oral tablet) See Instructions Take by mouth daily. atorvastatin (atorvastatin 80 mg oral tablet) 80 mg, Oral, once a day calcium-vitamin D (Calcium 600+D) 1 tab, Oral, once a day ezetimibe (Zetia 10 mg oral tablet) 1 Tablet(s), Oral, once a day metoprolol (Metoprolol Tartrate 25 mg oral tablet) 0.5 Tablet(s), Oral, once a day omeprazole (Prilosec 20 mg oral delayed release capsule) 1 cap, Oral, once a day predniSONE (predniSONE 5 mg oral tablet) 0.5 Tablet(s), Oral, once a day Stop Taking the Following Medications: Medication list as of 08-08-15 09:11 Attention: If you have any medications at home that are not on this list, DO NOT take them until youcontact your provider for clarification. Give a copy of your medication list to your primary care provider. Update your medication list any time medications or doses are changed and carry your medication list at all times in case of emergency. Electronically Signed By: MAGGIE OSBORNE MD Signed On:08-AUG-2015 09:10:58 Additional Information: Source: [facility] [employer] Document Id: [id number] Miscellaneous - Kami Redmond, C.M.ALara - 08/08/2015 8:19 AM CDT Adult Nursery School Teacher Intake/History Adult Nursery School Teacher Intake/History Entered On: 08/08/2015 8:19 CDT Performed On: 08/08/2015 8:19 CDT by KAMI REDMOND [facility] Intake Temperature Core : 36.5 DegC(Converted to: 97.7 DegF) Peripheral Pulse Rate : 62 /min Systolic Blood Pressure : 121 mmHg Diastolic Blood Pressure : 71 mmHg NIBP Mean : 88 mmHg KAMI REDMOND [facility] - 08/08/2015 8:22 CDT Chief Complaint : blood in both ear canals KAMI REDMOND [facility] - 08/08/2015 8:19 CDT General Info Information Given By : Patient Preferred Communication Mode : Verbal Languages : Welsh Is Patient Female and 13-50 no hysterectomy : No KAMI REDMOND [facility] - 08/08/2015 8:19 CDT Subjective Pain Symptoms : No KAMI REDMOND [facility] - 08/08/2015 8:19 CDT Dependent Habits Exposure to Tobacco Smoke : Other: former Smoking Status : Former smoker Tobacco 2A : Yes Tobacco Use/Currently Using : No Tobacco Use/Last 30 Days : No Tobacco Use/Last 12 months : No KAMI REDMOND [facility] - 08/08/2015 8:19 CDT Caffeine Use Grid Caffeine Use : Current Type : Coffee Frequency : Daily KAMI REDMOND [facility] - 08/08/2015 8:19 CDT Source: [facility] [employer] Document Id: [id number] CDT!7 documented in this encounter Plan of Treatment Not on filedocumented as of this encounter Visit Diagnoses Not on filedocumented in this encounter Additional Health Concerns Assessment Noted Time PHQ-9 Depression Total Score: 2 03/08/2015 11:16 AM CS T documented as of this encounter
--- OUTSIDE RECORDS SUMMARY | 2021-12-17 09:49 | XMS_ITS | Encounter Summary ---
:1940 Author Organization [facility] Address [address] [place] [address] Care Team Providers Name Role Phone Unavailable Primary Care Provider Unavailable Encounter Details Date Type Department Care Team Description 06/30/2017 Ancillary Department of Fl[place]io, Cataract Senil e Nuclear Sclerosis Right (Primary Dx); Procedure Ophthalmology in [facility] Raymundo Soares M.D. Cataract Senile Nuclear Sclerosis Left [address] [place] [phone] Social History Tobacco Use [...] Procedure Name Priority Date/Time Associated Comments Diagnosis OCULAR COHERENCE Routine 06/30/2017 11:17 AM Cataract Senile R esults for this BIOMETRY (OCB) - OU [employer]IVER Nuclear Sclerosis pro cedure are in - BOTH EYES Right the results Cataract Senile section. Nuclear Sclerosis Left CORNEAL TOPOGRAPHY - Routine 06/30/2017 11:15 AM Cataract Eugenia le Results for this OU - BOTH EYES [employer] Nuclear Sclerosis procedur e are in Right the results Cataract Senile section. 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 - 08/15/2017 9: 49 AM CDT MODALITY Right Eye The modality was IOL Master. Left Eye The modality was IOL Master. IOL MEASUREMENTS Right Eye IOL Measurements: Axial length was 24.11 mm. K-1 was 42.48 diopters. K1 Kayenta was 112.00 degrees. K-2 was 43.43. K2 Kayenta was 22.00 degrees. WTW was 11.80 mm. ACD was 2.59 mm. Lens thicknes s was 5.43 mm. Left Eye IOL Measurements: Axial length was 23.66 mm. K-1 was 42.90 diopters. K1 Kayenta was 74.00 degrees. K-2 was 43.60. K 2 Kayenta was 164.00 degrees. WTW was 11.90 mm. ACD was 2.67 mm. Lens thicknes s was 5.22 mm. Raymundo Muniz M.D. 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 - 08/15/2017 9: 49 AM CDT Topography device used is Pentacam. Right Eye Findings include normal observations. Left Eye Findings include normal observations. Raymundo Muniz M.D. OPHTH OTHER documented in this encounter Visit Diagnoses Diagnosis Cataract Senile Nuclear Sclerosis Right - Primary Cataract Senile Nuclear Sclerosis Left documented in this encounter Additional Health Concerns Assessment Noted Time PHQ-9 Depression Total Score: 2 03/08/2015 11:16 AM CS T documented as of this encounter
--- OUTSIDE RECORDS SUMMARY | 2021-12-17 09:49 | XMS_ITS | Encounter Summary ---
:1940 Author Organization [facility] Address [address] [place] [address] Care Team Providers Name Role Phone Unavailable Primary Care Provider Unavailable Encounter Details Date Type Department Care Team Description 02/16/2016 Hospital Encounter HX [facility] Rodger Miranda M.D. [address] [place], [place] [phone] (Wo rk) Social History [...] documented as of this encounter Consult Notes Marv Duenas M.D. - 02/16/2016 8:29 AM CDT [id number] CHIEF COMPLAINT/REASON FOR VISIT Follow up status post right reversal total shoulder arthroplasty. 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 He is a year out from his surgery, doing well, having no issues with his shoulder other than some occasional nighttime soreness. His range of motion and function is great. He is monitoring his activities. He is doing a lot of hunting but other than that really no excessive use of the arm. He will do occasional bowling as well. He denies any real weakness in the arm. He is overall very pleased with how things have gone. PHYSICAL EXAMINATION Patient alert, appropriate, no acute distress. Very pleasant. Evaluation of his right shoulder reveals forward elevation to 150, external rotation to 50 degrees symmetrically. His strength is well preserved. DIAGNOSTICS X-rays reviewed today which show a stable reverse total shoulder arthroplasty on the right side without significant sign of notching or loosening. IMPRESSION/REPORT/PLAN One year status post right reverse total shoulder arthroplasty. PLAN: Patient is doing well with regard to his implant. He is pleased with the procedure and the outcomes. He is hopeful to continue with his hunting and bowling. I did tell him that he needs to continue to monitor his overhead activities but otherwise he is able to continue doing his activities he enjoys. He will follow up with me in 3 years or so for repeat evaluation including new x-rays, sooner if issues, questions or concerns. Marv Duenas M.D./dirk Electronically Signed By: MARV DUENAS MD On: 02/19/2016 07:40 AM Source: [facility] [email or web address] Document Id: [id number] documented in this encounter Miscellaneous Notes Miscellaneous - Marv Duenas M.D. - 02/16/2016 9:19 AM CDT Ambulatory Patient Summary [facility] [address], [address] [place] [id number] Visit Information Name: RYLEY VINES [facility] Number: [id number] Current Date: 02/16/2016 09:19:18 Physicians Attending Provider: MARV DUENAS MD Primary Care Provider: PCP, ELSEWHERE RYLEY [...] the Following Medications: Medication list as of 02-16-16 09:19 Attention: If you have any medications at home that are not on this list, DO NOT take them until youcontact your provider for clarification. Give a copy of your medication list to your primary care provider. Update your medication list any time medications or doses are changed and carry your medication list at all times in case of emergency. Electronically Signed By: MARV DUENAS MD Signed On:16-FEB-2016 09:19:16 Your Allergies & Intolerances Substance Reaction Symptoms [...] if you dont have one. Go to [email or web address] and click on Create Your Account. Then, follow the directions to complete the online form. Youll be asked for your [facility] number which you can find at the top of this document. Your Goals/Additional instructions: Source: [facility] POWERCHART Document Id: [id number] Miscellaneous - Marv Duenas M.D. - 02/16/2016 9:19 AM CDT Ambulatory Discharge Medication List [facility] [address], [address] [place], [place] [id number] Visit Information Name: RYLEY VINES [facility] Number: [id number] Current Date: 02/16/2016 09:19:18 Attending Provider: MARV DUENAS MD Primary Care Provider: PCP, MAKENZIE STEPHENSONRYLEY Soares has been given the following list of [...] the Following Medications: Medication list as of 02-16-16 09:19 Attention: If you have any medications at home that are not on this list, DO NOT take them until youcontact your provider for clarification. Give a copy of your medication list to your primary care provider. Update your medication list any time medications or doses are changed and carry your medication list at all times in case of emergency. Electronically Signed By: MARV DUENAS MD Signed On:16-FEB-2016 09:19:16 Additional Information: Source: [facility] POWERCHART Document Id: [id number] Miscellaneous - Colleen Sarabia L.P.N. - 02/16/2016 8:46 AM CDT Adult 3Rd Mate Intake/History Adult 3Rd Mate Intake/History Entered On: 02/16/2016 8:47 CDT Performed On: 02/16/2016 8:46 CDT by COLLEEN SARABIA LPN Intake Chief Complaint : Pt here for frc on rgiht TSA COLLEEN SARABIA LPN - 02/16/2016 8:46 CDT General Info Information Given By : Patient Languages : Slovak Is Patient Female and 13-50 no hysterectomy : No COLLEEN SARABIA LPN - 02/16/2016 8:46 CDT Subjective Pain Symptoms : No COLLEEN SARABIA LPN - 02/16/2016 8:46 CDT Dependent Habits Exposure to Tobacco Smoke : Other: former Smoking Status : Former smoker Tobacco 2A : Yes Tobacco Use/Currently Using : No Tobacco Use/Last 30 Days : No Tobacco Use/Last 12 months : No COLLEEN SARABIA LPN - 02/16/2016 8:46 CDT Caffeine Use Grid Caffeine Use : Current Type : Coffee Frequency : Daily COLLEEN SARABIA LPN - 02/16/2016 8:46 CDT Source: [facility] Document Id: [id number] CDT!21 documented in this encounter Plan of Treatment Not on filedocumented as of this encounter Visit Diagnoses Not on filedocumented in this encounter Additional Health Concerns Assessment Noted Time PHQ-9 Depression Total Score: 2 03/08/2015 11:16 AM CS T documented as of this encounter
--- OUTSIDE RECORDS SUMMARY | 2021-12-17 09:49 | XMS_ITS | Encounter Summary ---
:1940 Author Organization [facility] Address [address] [place] [address] Care Team Providers Name Role Phone Unavailable Primary Care Provider Unavailable Reason for Referral Outpatient (Routine) - Closed Specialty Diagnoses / Procedures Referred By Contact Refer red To Contact Diagnoses Cataract Senile Nuclear Sclerosis Right Raymundo Muniz M.D. [facility] Region [address] [place] [address] [place] [address] Referral ID Status Reason Start Date Expiration Date Visits Requ ested Visits Authorized [id number] Closed 05/01/2017 10/28/2017 1 1 [employer] Reason for Visit Reason Comments Cataract Encounter Details Date Type Department Care Team Description 05/01/2017 Office Visit Department of Raymundo Muniz Cataract S enile Nuclear Sclerosis Bilateral (Primary Dx); Ophthalmology in Margarito Soares M.D. Drusen Degenerative Macula Bilateral; [place], [place] [address] [place] [address] Cataract Senile Nuclear Sclerosis Right; [address] [facility] YARIEL Larkin Cataract Senile [place] [phone] Social History Tobacco Use Types Packs/Day Years Used Date Smoking Tobacco: Former Smokeless Tobacco: Never Alcohol Use Standard Drinks/Week Comments No 0 (1 standard drink = 0.6 oz pure alcoho l) Sex Assigned at Date Recorded Not on file documented as of this encounter Progress Notes Raymundo Muniz M.D. 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 Miranda for a cataract evaluation. The biggst trouble the patient has is with monocular diplopia from each eye. Dr. Miranda is not been able to eliminate that with glasses. In addition he has poor night vision with glare and halos. His mother went blind in herright eye from cataract surgery many years ago and that sticks with him. He would like to have better vision but has some residue visions about surgery. Examination: Confrontational visual russo intact, motility full, pupils no afferent defect, external moderate upper lid dermatochalasia OU. Slit-lamp examination: Lid margins clean, conjunctiva is clear quiet, corneas clear, chambers deep and quiet, lens shows +4 nuclear sclerosis OD and +3 nuclear sclerosis OS. The pupils dilate well. Fundus: There is a small area of atrophy adjacent to the central macula in both eyes but appears oldand inactive and not a source of vision loss in either eye. The disc is pink and the arcades and periphery are otherwise normal. Intra-ocular pressures are noted under the exam section of the chart. Impression: 1. 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 Mild ocular hypertension. Plan: 1. Recommend bilateral cataract surgery right eye 1st 2. The risks, benefits, and alternativesto cataract surgery are discussed including supra choroidal hemorrhage, endophthalmitis, loss of vision and loss of the eye. 3. Given his maculopathy I would discourage advanced technology IOLs but I have recommended the patient agrees that a mono focal IOL for distance vision to read in the postoperative setting. 4. Given the long distance for driving the patient would prefer his postop care with Dr. Miranda 5. Patient would prefer his surgery in [place] at the [facility]. 6. We will use Miostat control the postoperative intra-ocular pressure. [employer] documented in this encounter Plan of Treatment Scheduled Referrals Name Type Priority Associated Order Schedule Diagnoses Pre Operative Outpatient Referral Routine Cataract Senile Expe cted: Evaluation SARI nurse Nuclear Sclerosis consult (clinic) Right (Approximat e), Expires: 05/01/2020 documented as of this encounter Visit Diagnoses Diagnosis Cataract Senile Nuclear Sclerosis Bilate ral - Primary Drusen Degenerative Macula Bilateral Cataract Senile Nuclear Sclerosis Right Cataract Senile Nuclear Sclerosis Left documented in this encounter Additional Health Concerns Assessment Noted Time PHQ-9 Depression Total Score: 2 03/08/2015 11:16 AM CS T documented as of this encounter
--- OUTSIDE RECORDS SUMMARY | 2021-12-17 09:49 | XMS_ITS | Encounter Summary ---
:1940 Author Organization [facility] Address [address] [place] [address] Care Team Providers Name Role Phone Unavailable Primary Care Provider Unavailable Encounter Details Date Type Department Care Team Description 04/11/2017 Abstract Department of Family Medicine, Provider, Historical [facility], in [place], [place] [address] [place] [address] [facility] [phone] Social History Tobacco Use Types Packs/Day Years Used Date Smoking Tobacco: Former Smokeless Tobacco: Never Sex Assigned at Date Recorded Not on file documented as of this encounter Plan of Treatment Not on filedocumented as of this encounter Visit Diagnoses Not on filedocumented in this encounter Additional Health Concerns Assessment Noted Time PHQ-9 Depression Total Score: 2 03/08/2015 11:16 AM CS T documented as of this encounter
--- OUTSIDE RECORDS SUMMARY | 2021-12-17 09:49 | XMS_ITS | Encounter Summary ---
:1940 Author Organization [facility] Address [address] [place] [address] Care Team Providers Name Role Phone Unavailable Primary Care Provider Unavailable Reason for Visit Reason Comments Nausea Pt states he had onset of br ief chest pain and some nausea at 0600 this am denies pain on admission Encounter Details Date Type Department Care Team Description 04/01/2017 Emergency [place] [facility] Bharath Myers, Nausea And Vomiting (Primary Dx); Department M.D. [address] [place], [place] [phone] Social History Tobacco Use Types Packs/Day Years Used Date Smoking Tobacco: Former Smokeless Tobacco: Never Sex Assigned at Date Recorded Not on file documented as of this encounter Last Filed Vital Signs Vital Sign Reading Time Taken Comments Blood Pressure 118/68 04/01/2017 1:30 PM TECHNICAL MARKETING CONSULTANT Pulse 74 04/01/2017 1:30 PM TECHNICAL MARKETING CONSULTANT Temperature 37 ??C (98.6 ??F) 04/01/2017 1:39 PM TECHNICAL MARKETING CONSULTANT Respiratory Rate - - Oxygen Saturation 92% 04/01/2017 1:30 PM TECHNICAL MARKETING CONSULTANT Inhaled Oxygen Concentration - - Weight 69.2 kg (152 lb 8.9 oz) 04/01/2017 1:45 PM TECHNICAL MARKETING CONSULTANT Height - - Body Mass Index 24.52 06/25/2016 8:20 AM TECHNICAL MARKETING CONSULTANT documented in this encounter Discharge Instructions Discharge InstructionsBharath Myers M.D. - 04/01/2017 2:49 PM CST Please reseek care if you develop persistent vomiting and diarrhea and inability to tolerate oral intake. Please also seek care if you develop chest pain, shortness of breath, or persistent lightheadedness. NICAL MARKETING CONSULTANT AttachmentsThe following attachments cannot be sent through Care Everywhere. Nausea and Vomiting, Adult (British)Diarrhea, Adult, Wkne-rb-Nowf (British) documented in this encounter Medications at Time of Discharge Medication Sig Dispensed Refills Start Date End Date atorvastatin Take 80 mg by mouth 0 01/27/2017 (for_LIPITOR) 80 mg daily. tablet ZETIA 10 mg tablet Take 10 mg by mouth 0 01/09/20 17 daily. aspirin 0.1 mg capsule aspirin 81 mg oral 0 07/3108/15/2018 tablet See Instructions, Take by mouth daily. metoprolol succinate Take 0.5 tablets by 0 201408/16/2018 (for_TOPROL-XL) 12.5 mg mouth daily. Patient 24 hr tablet confirmed he was taking 0.5 tablet 1xday, however, Rx fill history suggests that it was the tartrate formulation. pqporlxkvfod-sjovxuza-zba Take 1 tablet by 0 06/0608/15/2018 ifrah [...] 0 09/0308/16/[address] capsule mouth daily. CALCIUM CARB/VIT Take 1 tablet by 0 01/09/2010 D3/MINERALS mouth daily. (CALCIUM-VITAMIN D ORAL) metFORMIN (GLUCOPHAGE) Take 1-2 tablets by 0 /05/201301/21/2020 500 mg tablet mouth 2 (two) times a day. documented as of this encounter ED Notes Bharath Myers M.D. - 04/01/2017 1:22 PM CST SUBJECTIVE CHIEF COMPLAINT/REASON FOR VISIT Nausea (Pt states he had onset of brief chest pain and some nausea at 0600 this am denies pain on admission) HISTORY OF PRESENT ILLNESS Patient is a pleasant 77-year-old male who presents for evaluation with concern of possible heart attack. Last night at midnight he developed nausea with dry heaves and 4 episodes of nonbloody diarrheaand uneasiness in his stomach that persisted up until 5:00 a.m. His symptoms got worse when he rolled onto his side. For with these episodes he felt hot and dizzy with shortness of breath and lightheadedness but without vertigo. He did not lose consciousness with this. He denies any recent antibioticsor other individuals who are sick with similar symptoms. He has a past history of polymyalgia rheumatica, but he has not been taking any steroids for this. He states that he had a heart attack in the past at which point he had chest pains and diffuse gaseous pains. He states that this does not feel like his prior heart attack. He denies any associated chest pain, headache, vision changes, fever, weakness, slurred speech, difficulty swalllowing, or urinary symptoms. REVIEW OF SYSTEMS Eyes: Negative for visual disturbance. Respiratory: Positive for shortness of breath. Cardiovascular: Negative for chest pain. Gastrointestinal: Positive for diarrhea and vomiting. Negative for abdominal pain and hematemesis. Neurological: Positive for light-headedness. Negative for weakness and headaches. OBJECTIVE Initial Vitals Temperature Pulse Rate Heart Rate Resp Blood Pressure SpO2 04/01/17 1339 04/01/17 1330 04/01/17 1330 -- 04/01/17 1330 04/01/17 1330 37 ??C 74 73 118/68 92 % Pain Score -- PHYSICAL EXAMINATION HENT: Mouth/Throat: Mucous membranes are moist. Eyes: Conjunctivae are normal. Cardiovascular: Regular rhythm. Pulses are palpable. Palpable pulses in all extremities. Pulmonary/Chest: Effort normal. Abdominal: Soft. There is no tenderness. Neurological: He is alert. Grossly normal sensation and strength in upper and lower extremities. Normal cgxo-iu-cywr, ygnxba-qf-dshy, and rapid alternating movements. Normal gait. Skin: Skin is warm. He is not diaphoretic. ASSESSMENT/PLAN Impression and Plan 77-year-old male with past medical history of polymyalgia rheumatica but not currently on prednisone, coronary artery disease with prior heart attack in 2011, and history of TIA who presents for evaluation of overnight dry heaves, diarrhea, and feeling unwell. I do not suspect ACS, and this does not feel like his prior GA. EKG shows evidence of possible inferior infarct in the past, but no evidence of acute ischemia. I have also considered stroke, but he has a reassuring neurological exam and history is not suggestive of this. He has no abdominal pain, and I do not clinically suspect small bowel obstruction, mesenteric ischemia, biliary disease, appendicitis, volvulus, or diverticulitis We will obtain a troponin, CBC, CMP, lipase, and chest x-ray to further evaluate. . ED Course as of Apr 01 1613 Tue Apr 01, 2017 1300 EKG shows no evidence of acute ischemia. There is no evidence of arrhythmogenic right ventricular dysplasia, Brugada syndrome, HOCM, Gmfno-Fapepuuhv-Emghw or QTC prolongation. 1501 Chest X-ray is normal. Troponin normal, lactate normal, lipase normal, leukocytosis with neutrophil predominance of unclear etiology. Repeat abdominal exam prior to discharge shows no tenderness, and he has had no recurrence of nausea, vomiting, or diarrhea since 05:00, and I do not suspect serious intra- abdominal pathology at this time. I have counseled the patient to reseek care if he developschest pain, persistent shortness of breath, lightheadedness, abdominal pain, bloody stools or vomiting, or if he is unable to tolerate PO intake. 1508 I attempted to manually remove patient's ear wax prior to discharge as he has a history of cerumen impaction. There was a large amount bilaterally. I was able to remove a fair amount on the left with some trauma to his external auditory canal. He has his ears cleaned professionally, and he plans to follow up to get this done as well. Final Diagnoses: as of Apr 01 1613 Nausea And Vomiting Diarrhea Bharath Myers M.D. 04/01/17 1329 Bharath Myers M.D. 04/01/17 1501 Bharath Myers M.D. 04/01/17 1513 Bharath Myers M.D. 04/01/17 1613 NICAL MARKETING CONSULTANT documented in this encounter Plan of Treatment Not on filedocumented as of this encounter Procedures Procedure Name Priority Date/Time Associated Comments Diagnosis DX CHEST AP OR PA RAD - Semiurgent 04/01/2017 1:27 Res ults for this AND LATERAL 2 (Fast; most ED PM TECHNICAL MARKETING CONSULTANT procedure ar e in VIEWS patients; some the results inpatients) section. HEPATIC FUNCTION STAT 04/01/2017 1:18 Results for this PANEL, S PM TECHNICAL MARKETING CONSULTANT procedure are i n the results section. CBC WITH STAT 04/01/2017 1:18 Results for this DIFFERENTIAL, B PM TECHNICAL MARKETING CONSULTANT procedure ar e in the results section. TROPONIN T, 5TH STAT 04/01/2017 1:18 Results f or this GEN, P PM TECHNICAL MARKETING CONSULTANT procedure are i n the results section. LIPASE, S/P STAT 04/01/2017 1:18 Results for this PM TECHNICAL MARKETING CONSULTANT procedure are i n the results section. LACTATE, B/P STAT 04/01/2017 1:18 Results for this PM TECHNICAL MARKETING CONSULTANT procedure are i n the results section. BASIC METABOLIC STAT 04/01/2017 1:18 Results f or this PANEL, S/P PM TECHNICAL MARKETING CONSULTANT procedure are i n the results section. ECG STAT 04/01/2017 1:01 Results for this PM TECHNICAL MARKETING CONSULTANT procedure are i n the results section. documented in this encounter Results DX Chest AP or PA and Lateral 2 Views (04/01/2017 1:27 PM TECHNICAL MARKETING CONSULTANT) Anatomical Region Laterality Modality Chest N/A Digital Radiography Specimen (Source) Anatomical Collection Method Collection Time Re ceived Time Location / / Volume Laterality 04/01/2017 1:42 PM TECHNICAL MARKETING CONSULTANT Impressions 04/01/2017 1:43 PM TECHNICAL MARKETING CONSULTANT IMPRESSION: Cardiac silhouette is not enlarged. No pneumothorax. No lung infiltrate. Right shoulder arthroplasty. Narrative 04/01/2017 1:43 PM TECHNICAL MARKETING CONSULTANT EXAM: DX CHEST AP OR PA AND LATERAL 2 VIEWS Procedure Note Adolfo Castillo M.D. - 04/01/2017Formatt ing of this note might be different from the original. EXAM: DX CHEST AP OR PA AND LATERAL 2 EWS IMPRESSION: Cardiac silhouette is not en larged. No pneumothorax. No lung infiltrate. Right shoulder arthroplasty. Bharath Myers M.D. IMG DIAGNOSTIC IMAGING PROCE PONCHO Troponin T (04/01/2017 1:18 PM TECHNICAL MARKETING CONSULTANT) athologist Signature Troponin T, S <0.01 <0.01 ng/mL 04/01/2017 [facility] 1:56 PM TECHNICAL MARKETING CONSULTANT [facility] Comment: Biotin has been identified by the [place] as a potential interfering substance. ??Higher concentr ations of biotin may be found in multivitamins, hair/nail supple ments, and workout supplements. ??If the result does not [facility] clinical observations, repeat testing after patient refrains fr om the use of supplements for at least 12 hours. Specimen Anatomical Collection Method Collection Time Receive d Time (Source) Location / / Volume Laterality Blood (Blood, 04/01/2017 1:18 PM 04/01/20 17 1:20 Venous) TECHNICAL MARKETING CONSULTANT PM TECHNICAL MARKETING CONSULTANT Bharath Myers M.D. LAB BLOOD ADD-ON Performing Organization Address City/[facility] Phon e Number [address] [address] [facility] Lipase (04/01/2017 1:18 PM TECHNICAL MARKETING CONSULTANT) athologist [facility] Lipase, S 21 13 - 60 U/L 04/01/2017 [facility] 1:[address] [facility] Specimen Anatomical Collection Method Collection Time Receive d Time (Source) Location / / Volume Laterality Blood (Blood, 04/01/2017 1:18 PM 04/01/20 17 1:21 Venous) TECHNICAL MARKETING CONSULTANT PM TECHNICAL MARKETING CONSULTANT Bharath Myers M.D. LAB BLOOD ADD-ON Performing Organization Address [facility] Phon e Number [address] [address] [facility] Lactate (04/01/2017 1:18 PM TECHNICAL MARKETING CONSULTANT) athologist Signature Lactate, P 2.0 0.6 - 2.3 04/01/2017 [facility] mmol/L 1:36 PM TECHNICAL MARKETING CONSULTANT [facility] Specimen Anatomical Collection Method Collection Time Receive d Time (Source) Location / / Volume Laterality Blood (Blood, 04/01/2017 1:18 PM 04/01/20 17 1:21 Venous) TECHNICAL MARKETING CONSULTANT PM TECHNICAL MARKETING CONSULTANT Bharath Myers M.D. LAB BLOOD NON ADD-ON Performing Organization Address City/State/ZIP Code Phon e Number [facility] [address] [place] [id number] [facility] (ABNORMAL) Hepatic Function Panel (04/01/2017 1:18 PM TECHNICAL MARKETING CONSULTANT) Patholo gist Method Time Signature Bilirubin, Total, S 1.4 (H) <=1.2 04/01/2017 [facility] mg/dL 1:[address] [facility] Bilirubin, Direct, S 0.2 0.0 - 0.3 04/01/2017 [facility] [place] mg/dL 1:[address] [facility] Aspartate 45 8 - 48 04/01/2017 [facility] Aminotransferase U/L 1:57 PM [facility] Alanine 53 7 - 55 04/01/2017 [facility] Aminotransferase U/L 1:56 PM [facility] Alkaline 160 (H) 45 - 115 04/01/2017 [facility] Phosphatase, S U/L 1:[address] [facility] Albumin, S 4.2 3.5 - 5.0 04/01/2017 [facility] g/dL 1:[address] [facility] Protein, Total, S 6.7 6.3 - 7.9 04/01/2017 [facility] g/dL 1:[address] [facility] Specimen Anatomical Collection Method Collection Time Receive d Time (Source) Location / / Volume Laterality Blood (Blood, 04/01/2017 1:18 PM 04/01/20 17 1:21 Venous) TECHNICAL MARKETING CONSULTANT PM TECHNICAL MARKETING CONSULTANT Bharath Myers M.D. LAB BLOOD ADD-ON Performing Organization Address City/State/ZIP Code Phon e Number [facility]- [address] [place] [phone] [facility] BMP (Basic Metabolic Panel) (04/01/2017 1:18 PM TECHNICAL MARKETING CONSULTANT) P athologist Signature Potassium, S 4.2 3.6 - 5.2 04/01/2017 [facility] mmol/L 1:56 PM [facility] [employer] [facility] Sodium, S 143 135 - 145 04/01/2017 [facility] mmol/L 1:[address] [facility] Chloride, S 102 98 - 107 04/01/2017 [facility] mmol/L 1:[address] [facility] Bicarbonate, S 27 22 - 29 04/01/2017 [facility] mmol/L 1:[address] [facility] Anion Gap 14 7 - 15 04/01/2017 [facility] 1:[address] [facility] BUN (Blood Urea 9 8 - 24 04/01/2017 [facility] Nitrogen), S mg/dL 1:[address] [facility] Creatinine, S 0.99 0.74 - 04/01/2017 [facility] 1.35 mg/dL 1:[address] [facility] eGFR 74 >=60 04/01/2017 [facility] Non-Black/Afric mL/min/BSA 1:56 PM [facility] EM- an [place] [facility] Comment: ----ADDITIONAL INFORMATION---- Estimated GFR calculated using the 2009 CKD_EPI creatinine equation. eGFR-Black/ 85 >=60 mL/min/BSA 2016 1:56 PM [facility] Comment: ----ADDITIONAL INFORMATION---- Estimated GFR calculated using the 2009 CKD_EPI creatinine equation. Calcium, Total, S 9.5 8.9 - 10.1 mg/dL 04/01/2017 1 :56 PM [facility] Glucose, S 123 70 - 140 mg/dL 04/01/2017 1:56 PM [facility] Specimen Anatomical Collection Method Collection Time Receive d Time (Source) Location / / Volume Laterality Blood (Blood, 04/01/2017 1:18 PM 04/01/20 17 1:21 Venous) TECHNICAL MARKETING CONSULTANT TECHNICAL MARKETING CONSULTANT Bharath Myers M.D. LAB BLOOD ADD-ON Performing Organization Address City/State/ZIP Code Phon e Number [facility]- [id number] [address] [facility] (ABNORMAL) CBC with Differential (04/01/2017 1:18 PM TECHNICAL MARKETING CONSULTANT) [facility] Method Time Signature Hemoglobin 14.9 13.2 - 04/01/2017 [facility] 16.6 g/dL 1:28 PM [facility] Hematocrit 44.5 38.3 - 04/01/2017 [facility] 48.6 % 1:28 PM [facility] Erythrocytes 4.88 4.35 - 04/01/2017 [facility] 5.65 1:28 PM TECHNICAL MARKETING CONSULTANT HEALTH x10(12)/L SYSTEM- [facility] MCV 91.2 78.2 - 04/01/2017 [facility] 97.9 fL 1:28 PM [facility] RBC Distrib Width 13.6 11.8 - 04/01/2017 [facility] 14.5 % 1:28 PM [facility] Platelet Count 198 135 - 317 04/01/2017 [facility] x10(9)/L 1:28 PM [facility] Leukocytes 16.2 (H) 3.4 - 9.6 04/01/2017 [facility] x10(9)/L 1:28 PM [facility] [employer] Neutrophils 14.73 (H) 1.56 - 04/01/2017 [facility] 6.45 1:28 PM [facility] HEALTH x10(9)/L SYSTEM- [facility] Lymphocytes 0.91 (L) 0.95 - 04/01/2017 [facility] 3.07 1:28 PM TECHNICAL MARKETING CONSULTANT HEALTH x10(9)/L SYSTEM- [facility] Monocytes 0.54 0.26 - 04/01/2017 [facility] 0.81 1:28 PM TECHNICAL MARKETING CONSULTANT HEALTH x10(9)/L SYSTEM- [facility] Eosinophils 0.01 (L) 0.03 - 04/01/2017 [facility] 0.48 1:28 PM TECHNICAL MARKETING CONSULTANT HEALTH x10(9)/L SYSTEM- [facility] Basophils 0.02 0.01 - 04/01/2017 [facility] 0.08 1:28 PM [facility] HEALTH x10(9)/L [facility] [employer] [facility] Specimen Anatomical Collection Method Collection Time Receive d Time (Source) Location / / Volume Laterality Blood (Blood, 04/01/2017 1:18 PM 04/01/20 17 1:20 Venous) TECHNICAL MARKETING CONSULTANT PM TECHNICAL MARKETING CONSULTANT Bharath Myers M.D. LAB BLOOD ADD-ON Performing Organization Address City/State/ZIP Code Phon e Number [facility]- [address] [place] [phone] [facility] ECG 12 Lead (04/01/2017 1:01 PM TECHNICAL MARKETING CONSULTANT) Patholo gist Method Time Signature Ventricular 78 BPM MUSE Rate ECG/Min ME Interval 178 ms MUSE QRSD Interval 82 ms MUSE QT Interval 376 ms MUSE QTC Interval 428 ms MUSE P Kenna 39 degrees MUSE R Kenna -12 degrees MUSE T Wave Kenna 20 degrees MUSE Clinical Normal sinus rhythm MUSE Diagnosis Cannot rule out Inferior infarct When compared with ECG of 25-JUN-2016 09:01, Vent. rate has increased BY ??29 BPM Minimal criteria for Inferior infarct are now present Specimen Anatomical Collection Method Collection Time Receive d Time (Source) Location / / Volume Laterality 04/01/2017 1:01 PM 7 1:11 TECHNICAL MARKETING CONSULTANT PM TECHNICAL MARKETING CONSULTANT Narrative This result has an attachment that is no t available. Bharath Myers M.D. ECG ORDERABLES Performing Organization Address City/State/ZIP Code Phon e Number MUSE MUSE NA documented in this encounter Visit Diagnoses Diagnosis Nausea And Vomiting - Primary Diarrhea documented in this encounter Administered Medications Inactive Administered Medications - up to 3 most recent administrations Medication Order MAR Action Action Date Dose Rate Site NaCl 0.9 % bolus 1,000 mL New Bag 04/01/2017 1:32 PM TECHNICAL MARKETING CONSULTANT 1,000 mL 1,000 mL, intravenous, Once, On 04/01/17 at 1325, For 1 dose documented in this encounter Active and Recently Administered Medications Times are shown in TECHNICAL MARKETING CONSULTANT. Scheduled Medication Order 03/30/2017 03/31/2017 04/01/2017 NaCl 0.9 % bolus 1,000 mL (COMPLETED) [id number] (New Bag - Provider: Tonya Montanez R.N.)1444 (Stopped - Provider: Tonya Montanez R.N.) 1,000 mL, intravenous, Once, On 04/01/17 at 1325, For 1 dose documented in this encounter Additional Health Concerns Assessment Noted Time PHQ-9 Depression Total Score: 2 03/08/2015 11:16 AM CS T documented as of this encounter
--- OUTSIDE RECORDS SUMMARY | 2021-12-17 09:49 | XMS_ITS | Encounter Summary ---
:1940 Author Organization [facility] Address [address] [place] [address] Care Team Providers Name Role Phone Unavailable Primary Care Provider Unavailable Reason for Visit Outpatient (Routine) - Closed Specialty Diagnoses / Procedures Referred By Contact Refer red To Contact Diagnoses Cataract Senile Nuclear Sclerosis Right Raymundo Muniz M.D. [address] [phone] Referral ID Status Reason Start Date Expiration Date Visits Requ ested Visits Authorized [id number] Closed 05/01/2017 10/28/2017 1 1 Encounter Details Date Type Department Care Team Description 06/30/2017 Nurse Only Department of General Sandro Muniz M.D. [address] [place] [phone] Surgery in [facility] Gena Quinn, RSelvin [address] [place] [phone] [phone] Social History Tobacco Use Types Packs/Day Years Used Date Smoking Tobacco: Former Smokeless Tobacco: Never Alcohol Use Standard Drinks/Week Comments No 0 (1 standard drink = 0.6 oz pure alcoho l) Sex Assigned at Date Recorded Not on file documented as of this encounter Progress Notes Gena Quinn R.N. - 06/30/2017 11:30 AM CST This patient was seen for a SARI visit on 06/30/17. Surgery Nurse Ged Preparation Teacher Anesthesia Risk Assessment: Do you have difficulties lying flat? no Comment: Do you have an implanted cardiac device?no. Teaching: Preoperative education was done with (x) patient () other: It was confirmed the patient/family member had received the following preoperative education sheets: It was confirmed the patient/family member had received the following preoperative education sheets: Preparing for Your Surgery ([id number]),Surgical Site Infections ([id number]), Speak Up: Antibiotics ([id number]), Smoke Free, Advice for patients and visitors ([id number]), Managing Your Pain ([id number]) with the [employer] pamphlet ([id number]), Cataract Surgery: Required Appointments and Instructions ([id number]), and Financial Information for the Surgical Patient ([id number]), Preparing for Cataract Surgery Instructions ([id number]). These were reviewed in detail. The patient was instructed to bring the cataract eye kit and their eye drops the day of surgery. In addition, the patient was educated on lifting restrictions of 20 pounds for first week after surgery,using [id number] artificial tears for scratchy dry eyes and keeping dust or other objects out of the eye after surgery. Patient is ready to learn, no apparent learning barriers were identified. Reviewed diagnosis and treatment plan; patient verbalized understanding through teach back. All questions were answered. Patient has contact information and understands the need to call with any questions or concerns. Post op appointments: 1st po with surgeon or physician assistant commissioner: Dr. Miranda's office ERSMITH HELPER documented in this encounter Plan of Treatment Not on filedocumented as of this encounter Visit Diagnoses Diagnosis Preanesthetic Medical Exam - Primary Cataract Senile Nuclear Sclerosis Right documented in this encounter Additional Health Concerns Assessment Noted Time PHQ-9 Depression Total Score: 2 03/08/2015 11:16 AM CS T documented as of this encounter
--- OUTSIDE RECORDS SUMMARY | 2021-12-17 09:49 | XMS_ITS | Encounter Summary ---
:1940 Author Organization [facility] Address [address] [place] [address] Care Team Providers Name Role Phone Unavailable Primary Care Provider Unavailable Encounter Details Date Type Department Care Team Description 01/10/2015 Hospital Encounter HX [facility] Kobe Waller, P.A.-C. Social History Tobacco Use Types Packs/Day Years Used Date Smoking Tobacco: Never Assessed Sex Assigned at Date Recorded Not on file documented as of this encounter Last Filed Vital Signs Vital Sign Reading Time Taken Comments Blood Pressure 124/68 01/10/2015 7:59 AM CDT Pulse 55 01/10/2015 7:59 AM CDT Temperature - - Respiratory Rate 16 01/10/2015 7:59 AM CDT Oxygen Saturation - - Inhaled Oxygen Concentration [...] tablet mouth 2 (two) times a day. omeprazole (PriLOSEC) 20 Take 1 capsule by 0 /2 10/201008/16/[address] capsule mouth daily. documented as of this encounter Consult Notes Kobe Conrad - 01/10/2015 7:41 AM CDT [id number] Mr. Vines is a very pleasant, 74-year-old gentleman who is here today for evaluation of right shoulder pain. This has been ongoing for a number of years and it became progressively worse for him. It hurts with any type of activity away from his body such as shifting gears, trying to turn the steering wheel as well as activities at chest height or above. He has a very difficult time with this. 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 He does have an MRI scan available for review. He has no previous surgical history. He has tried a small amount of oral analgesics but is not interested in doing this long-term and is here today for orthopedic evaluation. PHYSICAL EXAMINATION He actually compensates fairly well and has adequate forward flexion and abduction. This is painful for him and not done in a very smooth pattern but he still has moderate function. Strength with external rotation is 4- out of 5. Strength in internal rotation is 4+ out of 5. Supraspinatus strength was4- out of 5 secondary to pain. DIAGNOSTICS Imaging studies show significant biceps tendinitis as well as glenohumeral and AC joint arthritis but most notably is a massive and chronic rotator cuff tear with significant rotator cuff arthropathy and essentially no subacromial space. IMPRESSION/REPORT/PLAN Mr. Vines is a 74-year-old gentleman with chronic right shoulder pain secondary to rotator cuff arthropathy and biceps tendinitis. We talked quite a bit about his treatment options and situation. I toldhim he could continue with oral analgesics and activity modification or perhaps consider a corticosteroid injection and physical therapy. He was not interested in any of these. We did talk about the pros and cons of reverse total shoulder. We talked about the potential risks of surgery including the possibility of blood loss, blood clots, complications of anesthesia, infection, nerve and tendon issues and even . We also discussed the approximate postoperative recovery timeframe being around 3 months but certainly hopefully less. I did tell him that the Dr. Lazo would team up with another surgeon if we were to consider this and it would be done over in [place]. He will let us know if he is interested in pursuing this at which point I would discussed with Dr. Lazo to consult with Dr. Dodson on the possibility of reverse total shoulder to see if they are comfortable with this plan or if they would need to see the patient in clinic first. Either way, he did also bring up the possibility of going to [place]. I told him he is more than welcome to get a second opinion down there to see what they have to say and he will let us know if he is interested in pursuing any of the options we have to offer him. If he has any questions, he was encouraged to call. Otherwise, he will see us back on an as-needed basis because I believe he is aware of his situation, as well as what treatment options are available to him. Twenty-one minutes was spent on the patient today, of which 17 minutes was spent in direct [id number] counseling and educating the patient about his condition, as well as treatment options available to him. Kobe Conrad P.A.-C./dirk Electronically Signed By: KOBE CONRAD PA-C On: 01/16/2015 11:57 AM Source: [facility] MHSDOLBEYNONRADSYS Document Id: [id number] documented in this encounter Miscellaneous Notes Miscellaneous - Kobe Conrad - 01/10/2015 3:46 PM CDT Ambulatory Patient Summary [address] [id number] Visit Information Name: LUIS ARMANDO RYLEY RASHAWNANA [facility] Number: [id number] Current Date: 01/10/2015 15:46:00 Physicians Attending Provider: KOBE CONRAD PA-C Primary Care Provider: PCP, MAKENZIE STEPHENSONRYLEY Soares [...] Indications/Special Instructions/Comments/Notes for Patient Medication Changes/Routing aspirin (Aspir 81) aspirin (aspirin 81 mg oral tablet) See Instructions Take by mouth daily. atorvastatin (atorvastatin 80 mg oral tablet) 80 mg, Oral, once a day calcium-vitamin D (Calcium 600+D) ezetimibe (Zetia 10 mg oral tablet) 1 Tablet(s), Oral, once a day omeprazole (Prilosec 20 mg oral delayed release capsule) 1 cap, Oral, once a day predniSONE (predniSONE 5 mg oral tablet) 1 Tablet(s), Oral, once a day simvastatin (Zocor 80 mg oral tablet) 1 Tablet(s), Oral, once a day (at bedtime) Stop Taking the Following Medications: Medication list as of 01-10-15 15:46 Attention: If you have any medications at home that are not on this list, DO NOT take them until youcontact your provider for clarification. Give a copy of your medication list to your primary care provider. Update your medication list any time medications or doses are changed and carry your medication list at all times in case of emergency. Electronically Signed By: KOBE CONRAD PA-C Signed On:10-JAN-2015 15:45:53 Your Allergies & Intolerances Substance Reaction Symptoms [...] if you dont have one. Go to [email or web address] and click on Create Your Account. Then, follow the directions to complete the online form. Youll be asked for your [facility] number which you can find at the top of this document. Your Goals/Additional instructions: Source: [facility] POWERCHART Document Id: [id number] Miscellaneous - Kobe Conrad - 01/10/2015 3:45 PM CDT Ambulatory Discharge Medication List [address] [id number] Visit Information Name: RYLEY VINES [facility] Number: [id number] Visit Date: 01/10/2015 15:45:59 Attending Provider: KOBE CONRAD PA-C Primary Care Provider: PCP, ELSEWHERE RYLEY VINES [...] Indications/Special Instructions/Comments/Notes for Patient Medication Changes/Routing aspirin (Aspir 81) aspirin (aspirin 81 mg oral tablet) See Instructions Take by mouth daily. atorvastatin (atorvastatin 80 mg oral tablet) 80 mg, Oral, once a day calcium-vitamin D (Calcium 600+D) ezetimibe (Zetia 10 mg oral tablet) 1 Tablet(s), Oral, once a day omeprazole (Prilosec 20 mg oral delayed release capsule) 1 cap, Oral, once a day predniSONE (predniSONE 5 mg oral tablet) 1 Tablet(s), Oral, once a day simvastatin (Zocor 80 mg oral tablet) 1 Tablet(s), Oral, once a day (at bedtime) Stop Taking the Following Medications: Medication list as of 01-10-15 15:45 Attention: If you have any medications at home that are not on this list, DO NOT take them until youcontact your provider for clarification. Give a copy of your medication list to your primary care provider. Update your medication list any time medications or doses are changed and carry your medication list at all times in case of emergency. Electronically Signed By: KOBE CONRAD PA-C Signed On:10-JAN-2015 15:45:53 Additional Information: Source: [facility] POWERCHART Document Id: [id number] Miscellaneous - Trini Dodson R.N. - 01/10/2015 7:59 AM CDT Adult Applied Anthropologist Intake/History Adult Applied Anthropologist Intake/History Entered On: 01/10/2015 8:03 CDT Performed On: 01/10/2015 7:59 CDT by TRINI DODSON channel worker Chief Complaint : right shoulder pain for years Temperature Core : 36.6 DegC(Converted to: 97.9 DegF) Peripheral Pulse Rate : 55 /min (LOW) Respiratory Rate : 16 /min Heart Rhythm : Regular Systolic Blood Pressure : 124 mmHg Diastolic Blood Pressure : 68 mmHg NIBP Mean : 87 mmHg BP Location : Left upper extremity Blood Pressure Cuff Size : Regular SpO2 : 97 % TRINI DODSON RN - 01/10/2015 7:59 CDT General Info Information Given By : Patient Preferred Communication Mode : Verbal Languages : Luxembourger Is Patient Female and 13-50 no hysterectomy : No TRINI DODSON RN - 01/10/2015 7:59 CDT Subjective Pain Symptoms : Yes TRINI DODSON RN - 01/10/2015 7:59 CDT Pain Scale Pain Scale Verbal 0-10 : Open TRINI DODSON RN - 01/10/2015 7:59 CDT Pain Pain Assessment Grid Pain 1 Location : Shoulder TRINI DODSON RN - 01/10/2015 7:59 CDT Dependent Habits Tobacco Use/Currently Using : No Exposure to Tobacco Smoke : Other: former Smoking Status : Former smoker TRINI DODSON RN - 01/10/2015 7:59 CDT Tobacco Use Grid Other Tobacco Frequency : no TRINI DODSON RN - 01/10/2015 7:59 CDT Caffeine Use Grid Caffeine Use : Current Type : Coffee Frequency : Daily TRINI DODSON RN - 01/10/2015 7:59 CDT Source: [facility] [employer] [facility] Document Id: [id number]!38 documented in this encounter Plan of Treatment Not on filedocumented as of this encounter Visit Diagnoses Not on filedocumented in this encounter
--- OUTSIDE RECORDS SUMMARY | 2021-12-17 09:49 | XMS_ITS | Encounter Summary ---
:1940 Author Organization [facility] Address [address] [place] [address] Care Team Providers Name Role Phone Unavailable Primary Care Provider Unavailable Encounter Details Date Type Department Care Team Description 06/30/2017 Ancillary Procedure Department of Raymundo Muniz Ophthalmology in Fabricio Soares M[address] [phone] Social History Tobacco Use Types [...] Name Priority Date/Time Associated Diagnosis Comme nts OCULAR COHERENCE Routine 06/30/2017 11:17 AM Cataract Senile R esults for this BIOMETRY (OCB) - OU SUBSEA ENGINEER Nuclear Sclerosis pro cedure are in - BOTH EYES Right the results Cataract Senile section. Nuclear Sclerosis Left documented in this encounter Results Ocular Coherence Biometry (OCB) - OU - Both Eyes (06/30/2017 11:17 AM SUBSEA ENGINEER) Specimen (Source) Anatomical Location Collection Method / Collectio n Time Received Time / Laterality Volume Narrative Raymundo Muniz M.D. - 08/15/2017 9: 49 AM CDT MODALITY Right Eye The modality was IOL Master. Left Eye The modality was IOL Master. IOL MEASUREMENTS Right Eye IOL Measurements: Axial length was 24.11 mm. K-1 was 42.48 diopters. K1 [place] was 112.00 degrees. K-2 was 43.43. K2 [place] was 22.00 degrees. WTW was 11.80 mm. ACD was 2.59 mm. Lens thicknes s was 5.43 mm. Left Eye IOL Measurements: Axial length was 23.66 mm. K-1 was 42.90 diopters. K1 [place] was 74.00 degrees. K-2 was 43.60. K 2 [place] was 164.00 degrees. WTW was 11.90 mm. ACD was 2.67 mm. Lens thicknes s was 5.22 mm. Raymundo Muniz M.D. OPHTH PHOTOGRAPHY documented in this encounter Visit Diagnoses Not on filedocumented in this encounter Additional Health Concerns Assessment Noted Time PHQ-9 Depression Total Score: 2 03/08/2015 11:16 AM CS T documented as of this encounter
--- OUTSIDE RECORDS SUMMARY | 2021-12-17 09:49 | XMS_ITS | Encounter Summary ---
:1940 Author Organization [facility] Address [address] [place] [address] Care Team Providers Name Role Phone Unavailable Primary Care Provider Unavailable Reason for Visit Reason Comments Communication Encounter Details Date Type Department Care Team Description 06/30/2017 Clinical Communication Department of Gena Quinn mmunication Ophthalmology in Fabricio Matthews R.N. [place], [place] [address] [facility] [address] [place] [phone] Social History Tobacco Use Types Packs/Day Years Used Date Smoking Tobacco: Former Smokeless Tobacco: Never Alcohol Use Standard Drinks/Week Comments No 0 (1 standard drink = 0.6 oz pure alcoho l) Sex Assigned at Date Recorded Not on file documented as of this encounter Miscellaneous Notes Telephone Encounter - Tammy Maria C.O.A. - 06/30/2017 2:36 PM CST Ketorolac was sent to the pharmacy [facility] Telephone Encounter - Gena Quinn R.N. - 06/30/2017 11:37 AM CST Patient is scheduled for cataract surgery 3/5/18, but he did not receive his Diclofenac. Please callkwame Etienne in [place]. [facility] documented in this encounter Plan of Treatment Not on filedocumented as of this encounter Visit Diagnoses Not on filedocumented in this encounter Additional Health Concerns Assessment Noted Time PHQ-9 Depression Total Score: 2 03/08/2015 11:16 AM CS T documented as of this encounter
--- OUTSIDE RECORDS SUMMARY | 2021-12-17 09:49 | XMS_ITS | Encounter Summary ---
:1940 Author Organization [facility] Address [address] [place] [address] Care Team Providers Name Role Phone Unavailable Primary Care Provider Unavailable Encounter Details Date Type Department Care Team Description 04/07/2015 Hospital Encounter HX [facility] Rodger Miranda M.D. [address] [place], [place] [phone] (Wo rk) Social History [...] encounter Consult Notes Marv Duenas M.D. - 04/07/2015 8:32 AM CST [id number] CHIEF COMPLAINT/REASON FOR VISIT Follow up right reverse shoulder replacement. HISTORY OF PRESENT ILLNESS Ryley is a 75-year-old right-hand dominant gentleman who underwent a reverse total shoulder arthroplasty on [birth year]23/1949. He is now at almost 3 weeks out from his surgery and is doing quite well. His painis well controlled. He is using only ibuprofen, working with therapy, not pushing himself too significantly, and minding his restrictions of limited internal rotation. He is having no fevers, chills orsweats. Some swelling about the incision but again no other signs of infection. He is pleased with how things are going. His pain is actually a little better now than it was before surgery. PHYSICAL EXAMINATION Patient alert, appropriate, no acute distress. Very pleasant. Evaluation of right shoulder reveals surgical incision to be healing nicely. Swelling about the subcutaneous tissue but no redness, no drainage. Elbow range of motion is intact. Wrist and digit range of motion is intact. When he actively forward elevates his arm he is not able to get very far, about 30 degrees. However passively I am able to get him to about 125 degrees and he is able to hold this. His axillary nerve is intact. IMPRESSION/REPORT/PLAN Three weeks status post right reverse total shoulder arthroplasty. PLAN: At this point the patient will continue with his icing for the swelling, continue with his therapy, start to progress some of forward elevation activities. I showed him the tabletop slide today and the wall crawling. He will follow up with me in the future for repeat x-rays in 4 weeks, sooner ifissues, questions or concerns. Marv Duenas M.D./dirk Electronically Signed By: MARV DUENAS MD On: 04/07/2015 12:30 PM Source: [facility] MHSDOLBEYNONRADSYS Document Id: [id number] documented in this encounter Miscellaneous Notes Miscellaneous - Marv Duenas M.D. - 04/07/2015 8:57 AM CST Ambulatory Patient Summary [facility] [address], [address] [place] [id number] Visit Information Name: RYLEY VINES [facility] Number: [id number] Current Date: 04/07/2015 08:57:05 Physicians Attending Provider: RADHIKA LEE PA-C Primary Care Provider: PCP, MAKENZIE RYLEY VINES has been given the following [...] the Following Medications: Medication list as of 04-07-15 08:57 Attention: If you have any medications at [...] Electronically Signed By: MARV DUENAS MD Signed On:07-APR-2015 08:56:51 Your Allergies & Intolerances Substance Reaction Symptoms [...] if you dont have one. Go to [email or web address] and click on Create Your Account. Then, follow the directions to complete the online form. Youll be asked for your [facility] number which you can find at the top of this document. Your Goals/Additional instructions: Source: [facility] POWERCHART Document Id: [id number] Miscellaneous - Marv Duenas M.D. - 04/07/2015 8:57 AM CST Ambulatory Discharge Medication List [facility] [address], [address] [place], [place] [phone] Visit Information Name: RYLEY VINES [facility] Number: [id number] Visit Date: 04/07/2015 08:57:04 Attending Provider: RADHIKA LEE PA-C Primary Care Provider: PCP, ELSEWHERE SACHINRYLEY Soares has been given the following list [...] the Following Medications: Medication list as of 04-07-15 08:57 Attention: If you have any medications at [...] Electronically Signed By: MARV DUENAS MD Signed On:07-APR-2015 08:56:51 Additional Information: Source: [facility] POWERCHART Document Id: [id number] Miscellaneous - Brodie Nielsen, L.P.N. - 04/07/2015 8:43 AM CST Adult Precision Aircraft Systems Assembler Intake/History Adult Precision Aircraft Systems Assembler Intake/History Entered On: 04/07/2015 8:43 PTA Performed On: 04/07/2015 8:43 PTA by BRODIE NIELSEN LPN Intake Chief Complaint : po rigfht shoulder BRODIE NIELSEN LPN - 04/07/2015 8:43 PTA General Info Information Given By : Patient Languages : Kiswahili Is Patient Female and 13-50 no hysterectomy : No BRODIE NIELSEN LPN - 04/07/2015 8:43 PTA Subjective Pain Symptoms : No BRODIE NIELSEN LPN - 04/07/2015 8:43 PTA Dependent Habits Exposure to Tobacco Smoke : Other: former Smoking Status : Former smoker Tobacco 2A : Yes Tobacco Use/Currently Using : No Tobacco Use/Last 30 Days : No Tobacco Use/Last 12 months : No BRODIE NIELSEN LPN - 04/07/2015 8:43 PTA Caffeine Use Grid Caffeine Use : Current Type : Coffee Frequency : Daily BRODIE NIELSEN LPN - 04/07/2015 8:43 PTA Source: [employer] Document Id: [id number] documented in this encounter Plan of Treatment Not on filedocumented as of this encounter Visit Diagnoses Not on filedocumented in this encounter Additional Health Concerns Assessment Noted Time PHQ-9 Depression Total Score: 2 03/08/2015 11:16 AM CS T documented as of this encounter
--- OUTSIDE RECORDS SUMMARY | 2021-12-17 09:49 | XMS_ITS | Encounter Summary ---
:1940 Author Organization [facility] Address [address] [place] [address] Care Team Providers Name Role Phone Unavailable Primary Care Provider Unavailable Encounter Details Date Type Department Care Team Description 06/25/2016 Hospital Encounter HX [facility] FAMILY ID Tea Givens M.D. [address] [place] [address] [phone] (Wo rk) Social History Tobacco Use Types Packs/Day Years Used Date Smoking Tobacco: Former Sex Assigned at Date Recorded Not on file documented as of this encounter Last Filed Vital Signs Vital Sign Reading Time Taken Comments Blood Pressure 114/89 06/25/2016 8:20 AM JIG FILLER Pulse 56 06/25/2016 8:20 AM JIG FILLER Temperature - - Respiratory Rate 16 06/25/2016 8:20 AM JIG FILLER Oxygen Saturation - - Inhaled Oxygen Concentration - - Weight 69 kg (152 lb 1.9 oz) 06/25/2016 8:20 AM JIG FILLER Height 168 cm (5' 6.14) 06/25/2016 8:20 AM JIG FILLER Body Mass Index 24.45 06/25/2016 8:20 AM JIG FILLER documented in this encounter Medications at Time [...] suggests that it was the tartrate formulation. [id number] Take 1 tablet by 0 06/0608/15/2018 ifrah [...] documented as of this encounter H&P Notes Tea Givens M.D. - 06/25/2016 8:59 AM CST Clinic Full Note CHIEF COMPLAINT/REASON FOR VISIT Pre Op Colonoscopy HISTORY OF PRESENT ILLNESS Here for preop evaluation. Procedure is screening colonoscopy. No personal or family history of easy bruising or bleeding. No personal or family history of anesthesia complications. Has other problems including coronary artery disease, history of TIA, osteoporosis and vitamin-D deficiency are all stable. He is no longer taking prednisone . Has a history of polymyalgia rheumatica that has not been flaring for extensive. Will check labs today for his chronic illnesses. Medicationswere updated in the medication list. He does not smoke although he is a former smoker. MEDICATIONS aspirin 81 mg oral tablet, See Instructions, Take by mouth daily. atorvastatin 80 mg oral tablet, 80 mg, PO, Daily Calcium 600+D, 1 tab, PO, Daily Metoprolol Tartrate 25 mg oral tablet, 12.5 mg, 0.5 tab(s), PO, Daily Ocuvite, 1 tab(s), PO, Daily predniSONE 5 mg oral tablet, 2.5 mg, 0.5 tab(s), PO, Daily Prilosec 20 mg oral delayed release capsule, 20 mg, 1 cap(s), PO, Daily, 3 refills Zetia 10 mg oral tablet, 10 mg, 1 tab(s), PO, Daily, 3 refills ALLERGIES NKA PAST MEDICAL HISTORY Chronic Arthralgia Carpal Tunnel Syndrome Colon, polyp, benign Coronary Artery Disease (CAD) [place] Vessel Diverticulosis of Colon (Without Mention of Hemorrhage) Elevated Blood Pressure Fx Vertebra Thoracic Closed Hyperlipidemia Osteoporosis Polymyalgia Rheumatica Syncope & Collapse Vitamin D Deficiency Historical No historical problems PROCEDURES/SURGICAL HISTORY Arthroplasty of the shoulder (03/23/2015), Colonoscopy, flexible, proximal to splenic flexure; diagnostic, with or without collection of specimen(s) by brushing or washing, with or without colon decompression (separate procedure).. (02/01/2010), Carpal tunnel release (10/17/2006), Colonoscopy (09/09/2003), Endarterectomy and angioplasty of neck artery (08/21/1999), Arthrodesis of wrist joint (10/17/1974). SOCIAL HISTORY Date Time: 06/25/2016 08:20 Tobacco: Smoking Status: Former smoker Exposure: Other: former Alcohol: Use: No Results Found Recreational Drugs: Use: No Results Found Type: No Results Found FAMILY HISTORY Mother: Negative: Anesthesia; Bleeding disorder; Hearing loss Father: Negative: Anesthesia; Bleeding disorder; Hearing loss Sister: Negative: Anesthesia; Bleeding disorder; Hearing loss Brother: Negative: Anesthesia; Bleeding disorder; Hearing loss SYSTEMS REVIEW CONSTITUTIONAL: No fevers, chills, sweats, weight loss or fatigue. EYES: No blurriness or diplopia. EARS, NOSE, MOUTH, THROAT: No ear pain, congestion, rhinorrhea, sore throat or dysphagia. CARDIOVASCULAR: No chest pain or palpitations. RESPIRATORY: No shortness of breath, cough,or wheeze. GASTROINTESTINAL: No nausea, vomiting, diarrhea, constipation, abdominal pain, or black, bloody or tarry stools. GENITOURINARY: No dysuria, frequency, hesitancy or incontinence. MUSCULOSKELETAL: No back or limb pain. INTEGUMENTARY: No rash, abnormal moles, or breast pain or masses. NEUROLOGICAL: No numbness, tingling, incoordination, falls or weakness. PSYCHIATRIC: No depression, anxiety or insomnia. ENDOCRINE: No heat or cold intolerance or polydipsia. HEMATOLOGIC/LYMPHATIC: No easy bruising, bleeding or lymphadenopathy. ALLERGIC/IMMUNOLOGIC: No allergies or immune disorders. VITAL SIGNS T: 36.7 ??C (Core) HR: 56 RR: 16 BP: 114 / 89 HT: 168 cm WT: 69.0 kg BMI: 24.45 PHYSICAL EXAMINATION GENERAL: No acute distress. Alert and oriented x3. Normal affect. Appropriate dress and eye contact. EYE: Conjunctiva is clear. ENT: Tympanic membranes are clear. Canals are patent. Face is nontender. Nares clear. Oropharynx isclear. Hearing aids are in place. NECK: Supple. No lymphadenopathy, thyromegaly or other masses noted. CARDIOVASCULAR: Regular rate and rhythm without murmur, gallop or rub. LUNGS: Clear to auscultation bilaterally. ABDOMEN: Soft and nontender. SKIN: Clear. IMPRESSION/REPORT/PLAN 1. Preoperative Exam NOS Patient is approved for the procedure. Preoperative instructions discussed and understanding indicated: 1. follow all preop hospital/center instructions. 2. IF TAKING ASPIRIN: stop aspirin 1 week before procedure and resume 1 day after the procedure unless instructed otherwise 3. IF TAKING ANY ANTICOAGULANTS: stop other anticoagulants per instructions of hospital/center or, if no instructions provided, stop anticoagulants 5 days before procedure and resume 1 day after the procedure unless instructed otherwise 4. IF TAKING METFORMIN: hold metformin on the day of the procedure and resume 1 day after the procedure unless instructed otherwise 5. IF TAKING LOUISE INHIBITOR OR ARB (LISINOPRIL OR LOSARTAN): stop LOUISE inhibitor/ARB on the day of the procedure and resume 1 day after the procedure unless instructed otherwise 6. IF TAKING INSULIN: hold basal insulin on the day of the procedure and resume once eating 7. IF TAKING SUPPLEMENTS: stop all supplements 1 week prior to procedure and may resume 1 day afterthe procedure unless instructed otherwise. Ordered: OV Est Pt Level 4 - 72515 - 25 min 2. Screening Cancer Colon Referral for colonoscopy. Ordered: OV Est Pt Level 4 - 44368 - 25 min 3. Coronary Artery Disease (CAD) [place] Vessel Continue current medications and treatments. Pros/cons/side effects/alternatives and complications reviewed in detail. He is intolerant of statins. Ordered: nitroglycerin, 0.4 mg = 1 tab(s), SL, q5min, PRN Chest Pain, # 25 tab(s), 11 Refill(s), Maintenance, Pharmacy: [facility] EKG Notify Nurse - EKG Ordered OV Est Pt Level 4 - 23584 - 25 min 4. Elevated Blood Pressure Continue current medications and treatments. Pros/cons/side effects/alternatives and complications reviewed in detail. Ordered: CBC without Diff Comprehensive Metabolic Panel Lipid Panel* OV Est Pt Level 4 - 43784 - 25 min Urinalysis with Microscopic if Indicated 5. Vitamin D Deficiency Continue current medications and treatments. Pros/cons/side effects/alternatives and complications reviewed in detail. Ordered: 25-Hydroxyvitamin D2 and D3-[place] 25HDN OV Est Pt Level 4 - 17097 - 25 min Orders: Schedule Procedure Colonoscopy Electronically Signed By: TEA GIVENS MD On: 06/25/2016 09:04 AM Source: [facility] POWERCHART Document Id: [id number] FILLER documented in this encounter Miscellaneous Notes Telephone Encounter - Conversion, Historical Provider Ser - 07/01/2016 2:20 PM CST *Phone Message Document Contains Addenda Addendum by EVERTON GARCIA LPN on July 01, 2016 14:35:52 JIG FILLER Patient aware of results and wanted to discuss lab results. From: HARDIK ONEIL ([facility] Gymnastics Coach) To: [facility] Nurse Rodrick; Sent: 07/01/2016 14:20:26 JIG FILLER Subject: *Phone Message Caller is: ( x ) Patient ( ) Mother ( ) Father ( ) Spouse ( ) Daughter ( ) Son ( ) Pharmacy ( ) Other: Physician: [facility]on Patient MRN #: Reason for Call: Patient would like to talk about his ultrasound results from today with Dr. Givens.He wants a call back at [phone] Message: Advice/Action: Source used: ( ) Verbalizes understanding of instructions ( ) Instructed to call back if symptoms worsen or do not resolve ( ) Refused to see provider ( ) Appointment Scheduled ( ) OK to leave message on voice mail ( ) Patient told to expect return call: ( ) today ( ) tomorrow ( ) next work day ( ) Patient's email ( ) Patient told physician out of office, will call upon return call on ( ) ( ) Patient told physician out of office, routed to other physician ( ) Other ( ) Call back telephone number ( ) Call back cell phone number ( ) Source: [facility] POWERCHART Document Id: [id number] Miscellaneous - Tea Givens M.D. - 06/27/2016 7:47 PM CST Normal Results Letter June 27, 2016 RYLEY VINES [address] [place] [address] [id number] Dear RYLEY VINES, I am pleased to report that your results from the following diagnostic test(s) look good, except that your liver enzymes are a bit high. I recommend that you have an ultrasound of your liver and have put in an order for this. Our schedulers will call you regarding this. My suspicion is that your liverwill be normal, as there are a lot of causes for elevated liver enzymes. Please follow up with us aswe discussed during your visit or sooner if you have any concerns. If you have questions or concerns, please do not hesitate to call our office. Result Name Current Result Previous Result Normal Range UA Color Yellow 06/25/2016 Colorless - UA Clarity Clear 06/25/2016 Clear - UA Spec Grav 1.015 06/25/2016 UA pH 5.5 06/25/2016 <5.0 - UA Protein (mg/dL) Negative 06/25/2016 Negative - UA Glucose (mg/dL) Negative 06/25/2016 Negative - UA Ketones (mg/dL) Negative 06/25/2016 Negative - UA Bili Negative 06/25/2016 Negative - UA Urobilinogen (mg/dL) 0.2 06/25/2016 0.2 - UA Blood (*) Trace 06/25/2016 Negative - rl UA Nitrite Negative 06/25/2016 Negative - UA Leuk Est Negative 06/25/2016 Negative - UR WBC (/HPF) Occ-3 06/25/2016 UR RBC (/HPF) Occ-2 06/25/2016 UR Squamous Epi Cells (/HPF) Occ-3 06/25/2016 Sodium Lvl (mmol/L) 141 06/25/2016 141 03/24/2015 135 - 145 Potassium Lvl (mmol/L) 3.9 06/25/2016 3.9 03/24/2015 3.5 - 5.1 Chloride (mmol/L) 100 06/25/2016 103 03/24/2015 98 - 107 CO2 (mmol/L) 26 06/25/2016 25 03/24/2015 22 - 29 AGAP (mmol/L) 15 06/25/2016 13 03/24/2015 10 - 20 Alkaline Phosphatase (U/L) (H) 221 06/25/2016 106 03/24/2015 45 - 115 Glucose Lvl (mg/dL) 109 06/25/2016 70 - 139 Creatinine (mg/dL) 1.00 06/25/2016 0.95 03/24/2015 0.74 - 1.35 EGFR (MDRD) (mL/min/1.73m2) >60 06/25/2016 >60 03/24/2015 >=60 - EGFR (MDRD) (mL/min/1.73m2) >60 06/25/2016 >60 03/24/2015 >=60 - BUN (mg/dL) 10 06/25/2016 14 03/24/2015 8 - 24 Calcium Lvl (mg/dL) 9.3 06/25/2016 8.8 03/24/2015 8.8 - 10.3 Protein Total (g/dL) 7.6 06/25/2016 (L) 6.0 03/24/2015 6.3 - 7.9 Albumin Lvl (g/dL) 4.3 06/25/2016 (L) 3.4 03/24/2015 3.5 - 5.0 AST (U/L) (H) 62 06/25/2016 32 03/24/2015 8 - 48 ALT (U/L) (H) 67 06/25/2016 23 03/24/2015 7 - 55 Bili Total (mg/dL) 1.2 06/25/2016 0.6 03/24/2015 - <=1.2 Cholesterol (mg/dL) 176 06/25/2016 - <=199 Trig (mg/dL) 106 06/25/2016 - <=149 HDL (mg/dL) 62 06/25/2016 >=40 - LDL Calculated (mg/dL) 93 06/25/2016 - <=129 Chol/HDL Ratio 3 06/25/2016 25-Hydroxy D-Kwon (ng/mL) 54 06/25/2016 25-Hydroxy D2-Kwon (ng/mL) <4.0 06/25/2016 25-Hydroxy D3-Kwon (ng/mL) 54 06/25/2016 Hgb (g/dL) 15.4 06/25/2016 (L) 12.5 03/24/2015 13.5 - 17.5 Hct (%) 46.4 06/25/2016 (L) 36.6 03/24/2015 38.8 - 50.0 WBC (x10(9)/L) 6.6 06/25/2016 (H) 10.8 03/24/2015 3.5 - 10.5 RBC (x10(12)/L) 5.09 06/25/2016 (L) 4.04 03/24/2015 4.32 - 5.72 MCV (fL) 91.2 06/25/2016 90.6 03/24/2015 81.2 - 95.1 RDW (%) 14.1 06/25/2016 13.8 03/24/2015 11.8 - 15.6 Platelet (x10(9)/L) 208 06/25/2016 214 03/24/2015 150 - 450 Sincerely, TEA GIVENS [id number] [address] Electronic Signature Electronically Signed By: TEA GIVENS MD On: June 27, 2016 This document has images extracted. Source: [facility] POWERCHART Document Id: [id number] Miscellaneous - Tea Givens M.D. - 06/27/2016 7:44 PM CST Addendum by WOJCIECH ELDRIDGE LPN on June 28, 2016 10:39:27 JIG FILLER Left a detailed message with the below information. From: TEA GIVENS MD To: [facility] Nurse [place]; Sent: 06/27/2016 19:44:44 JIG FILLER Call, Labs look good, except his liver enzymes are elevated. I recommend US of the liver to evaluatethis further. He shouldn't worry about this much, as there are a lot of reasons for elevated liver enzymes. I put an order for US of the liver. Source: [facility] POWERCHART Document Id: [id number] Electronically signed by Conversion, [facility] Chamber Walker [id number] at 10/15/2016 1:01 AM CDT Miscellaneous - Tea Givens M.D. - 06/25/2016 8:59 AM CST Ambulatory Patient Summary [address] [place] [id number] Visit Information Name: RYLEY VINES [facility] Number: [id number] Current Date: 06/25/2016 08:59:16 Physicians Attending Provider: TEA GIVENS MD Primary Care Provider: PCP, ELSEWHERE RYLEY [...] tablet) 0.5 Tablet(s), Oral, once a day multivitamin with minerals (Ocuvite) 1 Tablet(s), Oral, once a day nitroglycerin (nitroglycerin 0.4 mg sublingual tablet) 1 Tablet(s), Sublingual, every 5 minutes as needed for Chest Pain New Routed to [address] [place] [address] omeprazole (Prilosec 20 mg oral delayed release capsule) 1 cap, Oral, once a day Stop Taking the Following Medications: Medication list as of 06-25-16 08:59 Attention: If you have any medications at home that are not on this list, DO NOT take them until youcontact your provider for clarification. Give a copy of your medication list to your primary care provider. Update your medication list any time medications or doses are changed and carry your medication list at all times in case of emergency. Electronically Signed By: TEA GIVENS MD Signed On:25-JUN-2016 08:59:12 Your Allergies & Intolerances Substance Reaction Symptoms [...] of Colon (Without Mention of Hemorrhage) Active Coronary Artery Disease (CAD) [place] Vessel Active Your Upcoming Appointments Date Time Location [...] if you dont have one. Go to [email or web address] and click on Create Your Account. Then, follow the directions to complete the online form. Youll be asked for your [facility] number which you can find at the top of this document. Your Goals/Additional instructions: Source: [facility] POWERCHART Document Id: [id number] FILLER Miscellaneous - Tea Givens M.D. - 06/25/2016 8:59 AM CST Ambulatory Discharge Medication List [address] [place] [id number] Visit Information Name: RYLEY VINES [facility] Number: [id number] Current Date: 06/25/2016 08:59:15 Attending Provider: TEA GIVENS MD Primary Care Provider: PCP, ELSEWHERE RYLEY [...] tablet) 0.5 Tablet(s), Oral, once a day multivitamin with minerals (Ocuvite) 1 Tablet(s), Oral, once a day nitroglycerin (nitroglycerin 0.4 mg sublingual tablet) 1 Tablet(s), Sublingual, every 5 minutes as needed for Chest Pain New Routed to [address] [place] [address] omeprazole (Prilosec 20 mg oral delayed release capsule) 1 cap, Oral, once a day Stop Taking the Following Medications: Medication list as of 06-25-16 08:59 Attention: If you have any medications at home that are not on this list, DO NOT take them until youcontact your provider for clarification. Give a copy of your medication list to your primary care provider. Update your medication list any time medications or doses are changed and carry your medication list at all times in case of emergency. Electronically Signed By: TEA GIVENS MD Signed On:25-JUN-2016 08:59:12 Additional Information: Source: [facility] POWERCHART Document Id: [id number] FILLER Miscellaneous - Everton Garcia L.P.N. - 06/25/2016 8:20 AM CST Adult Cake Maker Intake/History Adult Cake Maker Intake/History Entered On: 06/25/2016 8:25 JIG FILLER Performed On: 06/25/2016 8:20 JIG FILLER by EVERTON GARCIA LPN Intake Chief Complaint : Pre Op Colonoscopy Temperature Core : 36.7 DegC(Converted to: 98.1 DegF) Peripheral Pulse Rate : 56 /min (LOW) Respiratory Rate : 16 /min Systolic Blood Pressure : 114 mmHg Diastolic Blood Pressure : 89 mmHg NIBP Mean : 97 mmHg BP Location : Left upper extremity Blood Pressure Cuff Size : Large Height : 168 cm(Converted to: 5 ft 6 inch(es), 66 inch(es)) Actual Weight : 69.0 kg(Converted to: 152 lb 2 oz) Weight Source : Standing scale Dosing Weight Clinic : 69 kg Clinic BSA : 1.79 Body Mass Index : 24.45 kg/m2 EVERTON GARCIA LPN - 06/25/2016 8:20 JIG FILLER General Info Information Given By : Patient Languages : Swedish Is Patient Female and 13-50 no hysterectomy : No EVERTON GARCIA LPN - 06/25/2016 8:20 JIG FILLER Subjective Pain Symptoms : No EVERTON GARCIA LPN - 06/25/2016 8:20 JIG FILLER Dependent Habits Exposure to Tobacco Smoke : Other: former Smoking Status : Former smoker Tobacco 2A : Yes Tobacco Use/Currently Using : No Tobacco Use/Last 30 Days : No Tobacco Use/Last 12 months : No EVERTON GARCIA LPN - 06/25/2016 8:20 JIG FILLER Caffeine Use Grid Caffeine Use : Current Type : Coffee Frequency : Daily EVERTON GARCIA LPN - 06/25/2016 8:20 JIG FILLER Source: [facility] POWERCHART Document Id: [id number] JIG FILLER!35 FILLER documented in this encounter Plan of Treatment Not on filedocumented as of this encounter Procedures Procedure Name Priority Date/Time Associated Comments Diagnosis URINALYSIS, ROUTINE Routine 06/25/2016 9:35 AM Re sults for this JIG FILLER procedure are i n the results section. URINE MICROSCOPIC Routine 06/25/2016 9:35 AM Resu lts for this JIG FILLER procedure are i n the results section. LIPID PANEL, S Routine 06/25/2016 9:09 AM Results for this JIG FILLER procedure are i n the results section. 25-HYDROXYVITAMIN D2 Routine 06/25/2016 9:09 AM R esults for this AND D3, S JIG FILLER procedure are i n the results section. CBC WITHOUT Routine 06/25/2016 9:09 AM Results f or this DIFFERENTIAL, B JIG FILLER procedure ar e in the results section. COMPREHENSIVE Routine 06/25/2016 9:09 AM Results for this METABOLIC PANEL, S/P JIG FILLER procedu re are in the results section. ECG Routine 06/25/2016 9:01 AM Results f or this JIG FILLER procedure are i n the results section. documented in this encounter Results Urine Microscopic (06/25/2016 9:35 AM JIG FILLER) athologist Signature HXUR WBC. Occ-3 HPF POWERCHART HXUR RBC. Occ-2 HPF POWERCHART Squamous Occ-3 HPF POWERCHART Epithelial Specimen Anatomical Collection Method Collection Time Receive d Time (Source) Location / / Volume Laterality Urine, First 06/25/2016 9:35 AM 7 9:35 Voided JIG FILLER AM JIG FILLER Tea Givens M.D. LAB URINE ORDERABLES Performing Organization Address City/State/ZIP Code Phon e Number POWERCHART (ABNORMAL) Urinalysis, Routine (06/25/2016 9:35 AM JIG FILLER) athologist Signature Clarity Clear Clear POWERCHART HXUr Color Yellow Colorless POWERCHART Specific 1.015 POWERCHART [place], POCT, U Comment: Reference Range Specific [place]: 1.000-1.035 pH, POCT, Urine 5.5 <5.0 POWERCHART Comment: Reference Range pH: 5.0-8.0 Protein, Ur, Dip Negative Negative MGDL POWERCHAR T Glucose Negative Negative MGDL POWERCHART Ketones, QL(U) Negative Negative MGDL POWERCHART HXBILIRUBIN Negative Negative POWERCHART HXBLOOD Trace (A) Negative POWERCHART Leukocyte Esterase Negative Negative POWERCHART HXNITRITE Negative Negative POWERCHART Urobilinogen 0.2 0.2 MGDL POWERCHART Comment: Reference Range Urobilinogen: 0.2-1.0 mg/dL Specimen (Source) Anatomical Collection Method Collection Time Re ceived Time Location / / Volume Laterality Urine, First 06/25/2016 9:35 AM Voided JIG FILLER Tea Givens M.D. LAB URINE ORDERABLES Performing Organization Address City/State/ZIP Code Phon e Number POWERCHART CBC without Differential (06/25/2016 9:09 AM JIG FILLER) P athologist Signature Leukocytes 6.6 3.5 - 10.5 POWERCHART X109L Erythrocytes 5.09 4.32 - 5.72 POWERCHART K2925Y Hemoglobin 15.4 13.5 - 17.5 POWERCHART GDL Hematocrit 46.4 38.8 - 50.0 POWERCHART MCV 91.2 81.2 - 95.1 POWERCHART FL HX RDW 14.1 11.8 - 15.6 POWERCHART Platelet Count 208 150 - 450 POWERCHART X109L Specimen (Source) Anatomical Collection Method Collection Time Re ceived Time Location / / Volume Laterality Blood 06/25/2016 9:09 AM JIG FILLER Tea Givens M.D. LAB BLOOD ADD-ON Performing Organization Address City/State/ZIP Code Phon e Number POWERCHART Lipid Panel (06/25/2016 9:09 AM JIG FILLER) P athologist Signature Cholesterol, 176 <=199 MGDL POWERCHART Total Comment: 2014 National Lipid Association recommen dations for Total Cholesterol in adults ages 18 and up: Desirable <200 mg/dL Borderline high 200-239 mg/dL High 240 mg/dL 2014 National Lipid Association recommen dations for Total Cholesterol in children ages 2 to 17. Acceptable <170 mg/dL Borderline High 170-199 mg/dL High 200 mg/dL HX HDL 62 >=40 MGDL POWERCHART Comment: 2014 National Lipid Association recommen dations for HDL-C in adults ages 18 and up: Low <40 mg/dL (Men) Low <50 mg/dL (Women) 2014 National Lipid Association recommen dations for HDL-C in children ages 2 to 17. Low <40 mg/dL Borderline Low 40-45 mg/dL Acceptable >45 mg/dL Triglycerides 106 <=149 MGDL POWERCHART Comment: 2014 National Lipid Association recommen dations for Triglycerides in adults ages 18 and up: Normal <150 mg/dL Borderline High 150-199 mg/dL High 200-499 mg/dL Very High 500 mg/dL 2014 National Lipid Association recommen dations for Triglycerides in children ages 2 to 9. Acceptable <75 mg/dL Borderline High 75-99 mg/dL High 100 mg/dL 2014 National Lipid Association recommen dations for Triglycerides in children ages 10 to 17. Acceptable <90 mg/dL Borderline High 90-129 mg/dL High 130 mg/dL Trigs >400mg/dL: Triglycerides >400 mg/ dL. Calculated LDL cholesterol is not valid. Non-HDL cholesterol may be used for risk assessment when triglycerides are >400mg/dL. Calculated LDL 93 <=129 MGDL POWERCHART Comment: 2013 National Lipid Association recommen dations for LDL-C in adults ages 18 and up: Desirable <100 mg/dL Above desirable 100-129 mg/dL Borderline high 130-159 mg/dL High 160-189 mg/dL Very High 190 mg/dL 2014 National Lipid Association recommen dations for LDL-C in children ages 2 to 17. Acceptable <110 mg/dL Borderline High 110-129mg/dL High 130 mg/dL LDL-C >190mg/dL: The markedly elevated LDL level is suggestive of a genetic condition such as familial hypercholesterolemia(FH) or familial defective apolipoprotein B-100 (FDB). Molecular genetic t esting for FH and FDB is available bell [facility]: FH/ADH Genetic Reflex Mcmahan el (test ADHP). Acquired (non-genetic) causes of markedly increased LDL cholesterol include cholestatic liver disease due to the presence of LpX. If a genetic form of hypercholesterolemia is suspected, family studies including biochemical testing fo r lipids (total cholesterol,triglycerides, LDL cholesterol and HDL cholesterol) are recommended. ??Please contact the laboratory at or the on-line test catalog at [employer] for information about how to order these rachael ts or to speak with a genetic counselor. Further interpretation would require clinical information. Total Cholesterol/HDL Ratio 3 PO WERCHART Specimen (Source) Anatomical Collection Method Collection Time Re ceived Time Location / / Volume Laterality Blood 06/25/2016 9:09 AM JIG FILLER Tea Givens M.D. LAB BLOOD ADD-ON Performing Organization Address City/State/ZIP Code Phon e Number POWERCHART (ABNORMAL) CMP (Comprehensive Metabolic Panel) (06/25/2016 9:09 AM JIG FILLER) [facility] gist Method Time Signature Alanine 67 (H) 7 - 55 UL POWERCHART Amniotransferase, LD Albumin, S 4.3 3.5 - 5.0 POWERCHART GDL Alkaline 221 (H) 45 - 115 POWERCHART Phosphatase, S UL Aspartate 62 (H) 8 - 48 UL POWERCHART Aminotransferase (AST), S Sodium, S 141 135 - 145 POWERCHART MMOLL Potassium, S 3.9 3.5 - 5.1 POWERCHART MMOLL Chloride, S 100 98 - 107 POWERCHART MMOLL CO2 Total 26 22 - 29 POWERCHART MMOLL BUN (Blood Urea 10 8 - 24 POWERCHART Nitrogen), S MGDL Creatinine, S 1.00 0.74 - POWERCHART 1.35 MGDL Calcium, Total, S 9.3 8.8 - POWERCHART 10.3 MGDL Anion Gap 15 10 - 20 POWERCHART MMOLL HXeGFR (MDRD) >60 >=60 POWERCHART GENIP900T 2 eGFR Black/ >60 >=60 POWERCHART Serbian [id number] 2 Bilirubin, Total, S 1.2 <=1.2 POWERCHART MGDL Total Protein, S 7.6 6.3 - 7.9 POWERCHART GDL Glucose 109 70 - 139 POWERCHART MGDL Specimen (Source) Anatomical Collection Method Collection Time Re ceived Time Location / / Volume Laterality Blood 06/25/2016 9:09 AM JIG FILLER Tea Givens M.D. LAB BLOOD ADD-ON Performing Organization Address City/State/ZIP Code Phon e Number POWERCHART 25-Hydroxyvitamin D2 and D3 (06/25/2016 9:09 AM JIG FILLER) athologist Signature HX25 HYDROXY D2 <4.0 NGML POWERCHART 25-Hydroxy D3 54 NGML POWERCHART Vitamin D, S 54 NGML POWERCHART Comment: Interpretation: 51-80 ng/mL (increased r isk of hypercalciuria) REFERENCE VALUE------ 25-HYDROXY D TOTAL (D2+D3) Optimum level s in the healthy population are 20-50, patients with bone disease may benefit from higher levels within this r christiano. ADDITIONAL INFORMATIO N This test was developed and its performa nce characteristics determined by [facility] in a manner co nsistent with CLIA requirements. This test has not been jeremias ared or approved by the U.S. Food and Drug Administration. Test Performed by: [place] [address] Mime Artist: Coy Sherwood II, M.D., Ph.D. Specimen (Source) Anatomical Collection Method Collection Time Re ceived Time Location / / Volume Laterality Blood 06/25/2016 9:09 AM JIG FILLER Tea Givens M.D. LAB BLOOD ADD-ON Performing Organization Address City/State/ZIP Code Phon e Number POWERCHART ECG 12 Lead (06/25/2016 9:01 AM JIG FILLER) Specimen (Source) Anatomical Collection Method Collection Time Re ceived Time Location / / Volume Laterality 06/25/2016 9:01 AM JIG FILLER [facility] - 06/25/2016 9:01 AM JIG FILLER Test Reason : PREOP, CAD Blood Pressure : / mmHG Vent. Rate : 049 BPM ? Atrial Rate : 049 BPM ?? P-R Int : 190 ms ?QRS D ur : 086 ms ?QT Int : 442 ms ? P-R-T Axe s : 066 036 044 degrees ?? QTc Int : 399 ms Marked sinus bradycardia Otherwise normal ECG When compared with ECG of 29-SEP-2012 11 :58, No significant change was found Referred By: TEA GIVENS ? Confirmed By:IGNACIO SCHWARTZ MD Procedure Note Provider, Marisela Garcia - 10/22/2016F ormatting of this note might be different from the original. Test Reason : PREOP, CAD Blood Pressure : / mmHG Vent. Rate : 049 BPM Atrial Rate : 049 B PM P-R Int : 190 ms QRS Dur : 086 ms QT Int : 442 ms P-R-T Axes : 066 036 04 4 degrees QTc Int : 399 ms Marked sinus bradycardia Otherwise normal ECG When compared with ECG of 29-SEP-2012 11 :58, No significant change was found Referred By: TEA GIVENS Confirmed By:Rayo SCHWARTZ MD Ignacio Schwartz M.D., Ph.D. ECG ORDERABLES Performing Organization Address City/State/ZIP Code Phon e Number [facility] [address] [place] [id number] documented in this encounter Visit Diagnoses Not on filedocumented in this encounter Additional Health Concerns Assessment Noted Time PHQ-9 Depression Total Score: 2 03/08/2015 11:16 AM CS T documented as of this encounter
--- OUTSIDE RECORDS SUMMARY | 2021-12-17 09:49 | XMS_ITS | Encounter Summary ---
:1940 Author Organization [facility] Address [address] [place] [address] Care Team Providers Name Role Phone Unavailable Primary Care Provider Unavailable Encounter Details Date Type Department Care Team Description 02/08/2015 Hospital Encounter HX [facility] Rodger Miranda M.D. [address] [place], [place] [phone] (Wo rk) Social History [...] (PriLOSEC) 20 Take 1 capsule by 0 05/2 10/201008/16/[address] capsule mouth daily. documented as of this encounter Consult Notes Ana Rosa Dodson M.D. - 02/08/2015 10:53 AM CDT [id number] CHIEF COMPLAINT/REASON FOR VISIT Right shoulder pain and weakness. HISTORY OF PRESENT ILLNESS Ryley is a 75-year-old right-hand dominant gentleman who presents today with right shoulder pain and weakness. He has had problems with the shoulder for many years. He has a known rotator cuff tear and has been dealing with this for quite some time. He notes that his shoulder is becoming more and more painful to lift to shoulder height and even above. He has discomfort with activities outside the frame of his body. He has had previous evaluation and treatment years ago for his shoulder, but no previous surgeries that he can attest to. He has had a recent MRI of his shoulder which showed a rotator cuff arthropathy with a chronic high-grade supraspinatus tear and muscle atrophy. He is here today to ankur hartman his options of treatment. He has had spoken with Jean Wheatley about his symptoms and treatment options. There was a discussion of potential corticosteroid and physical therapy versus a reverse total shoulder arthroplasty and he is here to discuss those options with me. PAST MEDICAL/SURGICAL HISTORY History of a stroke, vitamin D deficiency, polymyalgia rheumatica currently on steroids, osteoporosis, hyperlipidemia, carpal tunnel syndrome. ALLERGIES No known drug allergies. MEDICATIONS Reviewed today via the EMR and include prednisone as mentioned above. SOCIAL HISTORY Patient is a nonsmoker. PHYSICAL EXAMINATION Patient is alert, in no acute distress, very pleasant. Evaluation of his right shoulder reveals forward elevation actively to 160 with discomfort. External rotation is to 30 with discomfort. Internal rotation to his back pocket. When I test his strength he has just barely above 3/5 strength with rotator cuff testing supra and infraspinatus today which is painful for him. He has really global tenderness about his shoulder. CMS is intact in the right upper extremity except for this weakness in his shoulder from his rotator cuff arthropathy. DIAGNOSTICS X-rays were reviewed today which does show some degenerative changes in the glenohumeral joint. Alsonarrowing of the acromiohumeral head distance with early acetabularization of the acromion. He does not show any significant wear of the glenoid. IMPRESSION/REPORT/PLAN Right shoulder rotator cuff arthropathy. PLAN: At this point in time I had a long discussion with Ryley about the nature of his symptoms and the treatment options. We went through all the conservative treatments for his rotator cuff arthropathy which he declines today. I then spent a good amount of time discussing reverse total shoulder arthroplasty versus hemiarthroplasty. He is really not interested in a hemiarthroplasty. He is not planning on using his shoulder for significant strength and activities over shoulder height after the surgery. His main goal is to relieve his pain and I think that a reverse replacement would be a very viableoption for this. We had a very kellee discussion about the possibility of infection, failure of the im plant, dislocation, potential for bleeding and other risks associated with a reverse total shoulder arthroplasty including the lifetime restrictions and he understands this and wants to move forward with a right reverse total shoulder arthroplasty. Will plan on using the Lisa system as we have used in the past. He will get a preop from his primary care physician. We will try and schedule things formid March so that Dr. Lazo can be available to assist. All of his questions were answered todayand he will follow up with me as discussed in the future. If he is able to get off his steroids prior to surgery for his PMR that would be helpful. Otherwise we can manage him with stress dose if need be perioperatively. Ana Rosa Dodson M.D./dirk Electronically Signed By: ANA ROSA DODSON MD On: 02/08/2015 09:02 PM Source: [facility] MHSDOLBEYNONRADSYS Document Id: [id number] documented in this encounter Miscellaneous Notes Miscellaneous - Yovana Shelton, L.P.N. - 02/08/2015 12:40 PM CDT Ortho surgery letter From: YOVANA SHELTON LPN ( Orthopedic Nurse) To: [facility]; [facility] Surgery Nurse Hair Rooting Machine Operator; Surgery Department Clinician; Sent: 02/08/2015 12:40:03 CDT Subject: Ortho surgery letter [facility] Surgery Clinic Checklist Patient Contact Number: [phone] Surgeon: Geremias Surgical Service: (x) Orthopedics (_) General surgery (_) Ophthalmology (_) Podiatry (_) ENT (_) Urology (_) OB / Gynecology (_) Other Date of Surgery: 03/23/15 Place of Surgery: [facility] Pre-Admit FIN: _ Procedure (as written on Consent): Right reverse total shoulder arthrplasty Right, Left, Bilateral, N/A: RIGHT Diagnosis (reason for surgery): DJD ICD-10: _ CPT:_ Work Comp: (x) No (_) Yes Surgeon Anticipated Time: 2 hours Case Type: (_) Outpatient (x) AM Admit (_) Inpatient (_) Other Pre-op MD: pt will schedule in [place] Post-Op Appt:(time frame when to return) 10-14 days Surgery Brochure Given: (x ) Yes (_) No (_) Mailed to Patient SPECIAL EQUIPMENT/SPECIAL INSTRUCTION: Special Equipment needed: Beach Chair, Lisa, Trimano arm burciaga Rep Needed: (_) No (x) Yes Special Instructions/Prep: FIRST CASE, doing with Dr. Lazo Radiology Needs: Polina OT Post-op Appt Needed: (x) No (_) Yes Ortho Patients Only Metal Removal: (x) No (_) Yes X-Ray Location (if not done in [facility]): 02/08/15 CPM Post-op: (_) No (_) Yes- please make sure MD places order If Total Joint Case: Type of Prosthesis: Lisa reverse components Additional equipment: _ Has other side been done: (x) No (_) Yes Source: [facility] POWERCHART Document Id: [id number] Electronically signed by Cheryl [facility] Lead Shop Operator [id number] at 09/30/2016 4:56 AM CDT Miscellaneous - Ana Rosa Dodson M.D. - 02/08/2015 11:53 AM CDT Ambulatory Patient Summary [facility] [address], [address] [place], [place] [phone] Visit Information Name: SACHINRYLEY Soares [facility] Number: [id number] Current Date: 02/08/2015 11:53:30 Physicians Attending Provider: ANA ROSA DODSON MD Primary Care Provider: PCP, ELSEWHERE LUIS ARMANDO RYLEY PEMBERTON has been given the following list of [...] the Following Medications: Medication list as of 02-08-15 11:53 Attention: If you have any medications at home that are not on this list, DO NOT take them until youcontact your provider for clarification. Give a copy of your medication list to your primary care provider. Update your medication list any time medications or doses are changed and carry your medication list at all times in case of emergency. Electronically Signed By: ANA ROSA DODSON MD Signed On:08-FEB-2015 11:53:26 Your Allergies & Intolerances Substance Reaction Symptoms [...] if you dont have one. Go to [email or web address] and click on Create Your Account. Then, follow the directions to complete the online form. Youll be asked for your [facility] number which you can find at the top of this document. Your Goals/Additional instructions: Source: [facility] POWERCHART Document Id: [id number] Miscellaneous - Ana Rosa Dodson M.D. - 02/08/2015 11:53 AM CDT Ambulatory Discharge Medication List [address] [place], [place] [phone] Visit Information Name: RYLEY VINES [facility] Number: [id number] Visit Date: 02/08/2015 11:53:30 Attending Provider: ANA ROSA DODSON MD Primary Care Provider: PCP, RYLEY BAZAN has been given the following list of [...] the Following Medications: Medication list as of 02-08-15 11:53 Attention: If you have any medications at home that are not on this list, DO NOT take them until youcontact your provider for clarification. Give a copy of your medication list to your primary care provider. Update your medication list any time medications or doses are changed and carry your medication list at all times in case of emergency. Electronically Signed By: ANA ROSA DODSON MD Signed On:08-FEB-2015 11:53:26 Additional Information: Source: [employer] Document Id: [id number] Miscellaneous - Bashir Hutton, C.M.ALara - 02/08/2015 11:03 AM CDT Adult Director Of Health Education Intake/History Adult Director Of Health Education Intake/History Entered On: 02/08/2015 11:03 CDT Performed On: 02/08/2015 11:03 CDT by BASHIR HUTTON Intake Chief Complaint : Consult right shoulder. BASHIR HUTTON - 02/08/2015 11:03 CDT General Info Information Given By : Patient Preferred Communication Mode : Verbal Languages : Tanzanian Is Patient Female and 13-50 no hysterectomy : No BASHIR HUTTON - 02/08/2015 11:03 CDT Subjective Pain Symptoms : No BASHIR HUTTON - 02/08/2015 11:03 CDT Dependent Habits Tobacco Use/Currently Using : No Exposure to Tobacco Smoke : Other: former Smoking Status : Former smoker BASHIR HUTTON - 02/08/2015 11:03 CDT Tobacco Use Grid Other Tobacco Frequency : no BASHIR HUTTON - 02/08/2015 11:03 CDT Caffeine Use Grid Caffeine Use : Current Type : Coffee Frequency : Daily BASHIR HUTTON - 02/08/2015 11:03 CDT Source: [employer] Document Id: [id number] CDT!22 documented in this encounter Plan of Treatment Not on filedocumented as of this encounter Visit Diagnoses Not on filedocumented in this encounter
--- OUTSIDE RECORDS SUMMARY | 2021-12-17 09:49 | XMS_ITS | Encounter Summary ---
:1940 Author Organization [facility] Address [address] [place] [address] Care Team Providers Name Role Phone Unavailable Primary Care Provider Unavailable Reason for Visit Reason Comments Communication Encounter Details Date Type Department Care Team Description 06/27/2017 Clinical Communication Department of Mike Montelongo, Communication Medicine, Margarito Antonio [address] [address] [place], [place] [phone] (Work) [phone] Social History Tobacco Use Types Packs/Day Years Used Date Smoking Tobacco: Former Smokeless Tobacco: Never Alcohol Use Standard Drinks/Week Comments No 0 (1 standard drink = 0.6 oz pure alcoho l) Sex Assigned at Date Recorded Not on file documented as of this encounter Miscellaneous Notes Telephone Encounter - Melinda Meadows R.N. - 06/27/2017 3:14 PM AGRICULTURE TECHNICIAN Returned call to [place]. Ophthalmology had not contacted him and he said that he was not sure who it was. I reviewed his appointment times with him for Friday here in [place] and he verbalized understanding. CULTURE TECHNICIAN Telephone Encounter - Juliette Wong - 06/27/2017 12:33 PM CST Patient returning a phone call, there were no messages to alert where to send the call. Patient is having surgery and has questions about that. Patient can be reached at [phone] CULTURE TECHNICIAN documented in this encounter Plan of Treatment Not on filedocumented as of this encounter Visit Diagnoses Not on filedocumented in this encounter Additional Health Concerns Assessment Noted Time PHQ-9 Depression Total Score: 2 03/08/2015 11:16 AM CS T documented as of this encounter
--- OUTSIDE RECORDS SUMMARY | 2021-12-17 09:49 | XMS_ITS | Encounter Summary ---
:1940 Author Organization [facility] Address [address] [place] [address] Care Team Providers Name Role Phone Unavailable Primary Care Provider Unavailable Encounter Details Date Type Department Care Team Description 05/12/2015 Hospital Encounter HX [facility] Rodger Miranda M.D. [address] [place], [place] [phone] (Wo rk) Social History [...] encounter Consult Notes Marv Duenas M.D. - 05/12/2015 8:14 AM CST [id number] CHIEF COMPLAINT/REASON FOR VISIT Follow up status post right reverse total shoulder arthroplasty. HISTORY OF PRESENT ILLNESS Ryley is a 75-year-old gentleman who underwent a reverse total shoulder arthroplasty two and a half months ago, 03/23/1949. He is doing well with regard to his range of motion and pain. His therapy has gone well. He is really having no discomfort other than some soreness in his muscles he takes an ibuprofen for occasionally. He is pleased with how things have gone to this point. He is not all that concerned about his function. He is minding his restrictions of no lifting greater than 10 pounds over shoulder height. PHYSICAL EXAMINATION Patient alert, appropriate, no acute distress. Very pleasant. Evaluation of the right shoulder reveals forward elevation to 160 degrees without difficulty. External rotation is 50 degrees. His strengthis very well maintained and symmetric with rotation and forward elevation. CMS intact. DIAGNOSTICS X-rays reviewed today which show a stable reverse total shoulder arthroplasty in place, looks like the implants are ingrowing, no signs of significant failure of the implants or fracture. IMPRESSION/REPORT/PLAN Two and a half months status post right reverse total shoulder arthroplasty. PLAN: Patient will continue working forward on his therapy. He has made extremely nice strides in the last month. He will continue to mind his restrictions of no internal rotation, pushing up out of a chair, and no lifting over shoulder height more than 10 pounds. He will follow up with me at the r anniversary of his surgery for repeat x-rays, sooner if there are issues, questions or concerns. Marv Duenas M.D./dirk Electronically Signed By: MARV DUENAS MD On: 05/15/2015 07:26 AM Source: [facility] MHSDOLBEYNONRADSYS Document Id: [id number] S PROCESSOR documented in this encounter Miscellaneous Notes Miscellaneous - Marv Duenas M.D. - 05/12/2015 9:32 AM CST Ambulatory Patient Summary [facility] [address], [address] [place], [place] [phone] Visit Information Name: RYLEY VINES [facility] Number: [id number] Current Date: 05/12/2015 09:32:50 Physicians Attending Provider: MARV DUENAS MD Primary [...] the Following Medications: Medication list as of 05-12-15 09:32 Attention: If you have any medications at [...] Electronically Signed By: MARV DUENAS MD Signed On:12-MAY-2015 09:32:43 Your Allergies & Intolerances Substance Reaction Symptoms [...] if you dont have one. Go to [email or web address] and click on Create Your Account. Then, follow the directions to complete the online form. Youll be asked for your [facility] number which you can find at the top of this document. Your Goals/Additional instructions: Source: [facility] POWERCHART Document Id: [id number] S PROCESSOR Miscellaneous - Marv Duenas M.D. - 05/12/2015 9:32 AM CST Ambulatory Discharge Medication List [facility] [address], [address] [place], [place] [phone] Visit Information Name: RYLEY VINES [facility] Number: [id number] Visit Date: 05/12/2015 09:32:49 Attending Provider: MARV DUENAS MD Primary Care Provider: PCP, ELSEWHERE RYLEY VINESANA has been given the following list of [...] the Following Medications: Medication list as of 05-12-15 09:32 Attention: If you have any medications at [...] Electronically Signed By: MARV DUENAS MD Signed On:12-MAY-2015 09:32:43 Additional Information: Source: [facility] POWERCHART Document Id: [id number] S PROCESSOR Miscellaneous - Annemarie Mcgee LLaraPLaraNLara - 05/12/2015 9:05 AM CST Adult Lithograph Printer Intake/History Adult Lithograph Printer Intake/History Entered On: 05/12/2015 9:05 PARTS PROCESSOR Performed On: 05/12/2015 9:05 PARTS PROCESSOR by ANNEMARIE MCGEE LPN Intake Chief Complaint : Patient here for post op right TSA, [id number], c/o right hand swelling, x-rays obtained ANNEMARIE MCGEE LPN - 05/12/2015 9:05 PARTS PROCESSOR General Info Information Given By : Patient Preferred Communication Mode : Verbal Languages : Malay Is Patient Female and 13-50 no hysterectomy : No ANNEMARIE MCGEE LPN - 05/12/2015 9:05 PARTS PROCESSOR Subjective Pain Symptoms : No ANNEMARIE MCGEE LPN - 05/12/2015 9:05 PARTS PROCESSOR Dependent Habits Exposure to Tobacco Smoke : Other: former Smoking Status : Former smoker Tobacco 2A : Yes Tobacco Use/Currently Using : No Tobacco Use/Last 30 Days : No Tobacco Use/Last 12 months : No ANNEMARIE MCGEE LPN - 05/12/2015 9:05 PARTS PROCESSOR Caffeine Use Grid Caffeine Use : Current Type : Coffee Frequency : Daily ANNEMARIE MCGEE LPN - 05/12/2015 9:05 PARTS PROCESSOR Source: [employer] Document Id: [id number] PARTS PROCESSOR!22 S PROCESSOR documented in this encounter Plan of Treatment Not on filedocumented as of this encounter Visit Diagnoses Not on filedocumented in this encounter Additional Health Concerns Assessment Noted Time PHQ-9 Depression Total Score: 2 03/08/2015 11:16 AM CS T documented as of this encounter
--- OUTSIDE RECORDS SUMMARY | 2021-12-17 09:49 | XMS_ITS | Encounter Summary ---
:1940 Author Organization [facility] Address [address] [place] [address] Care Team Providers Name Role Phone Unavailable Primary Care Provider Unavailable Encounter Details Date Type Department Care Team Description 11/02/2014 Hospital Encounter HX [facility] Corby Woodward MMarry [address] [place] [address] (Wo rk) Social History Tobacco Use Types [...] mouth daily. documented as of this encounter Miscellaneous Notes Miscellaneous - Conversion, Historical Provider Ser - 11/02/2014 11:59 PM CDT Coding Summary-Paper Based CODING DATE: 11/08/2014 FINAL [facility] STATUS: * Discharged to Home or Self Care PAYOR: Medicare ADMIT DX: 840.6 Supraspinatus (Muscle) (Tendon) Sprain REASON FOR VISIT DX: 840.6 Supraspinatus (Muscle) (Tendon) Sprain FINAL DX: PRINCIPAL: 840.6 Supraspinatus (Muscle) (Tendon) Sprain SECONDARY: 840.3 Infraspinatus (Muscle) (Tendon) Sprain 840.5 Subscapularis (Muscle) Sprain 840.8 Sprain of Other Specified Sites of Shoulder and Upper Arm 715.31 Osteoarthrosis, Localized, Not Specified Whether Primary or Secondary, Involving Shoulder Region E928.9 Unspecified Accident PROCEDURES DOCTOR NAME DATE NOTE: The code number assigned matches the documented diagnosis and / or procedure in the patient's chart. However, the narrative phrase printed from the coding software may appear abbreviated, or result in slightly different terminology. Coded By: [email or web address] MCGUIRE Date Saved: 11/08/2014 09:46 am Source: [employer] Document Id: [id number] documented in this encounter Plan of Treatment Not on filedocumented as of this encounter Visit Diagnoses Not on filedocumented in this encounter
--- OUTSIDE RECORDS SUMMARY | 2021-12-17 09:49 | XMS_ITS | Encounter Summary ---
:1940 Author Organization [facility] Address [address] [place] [address] Care Team Providers Name Role Phone Unavailable Primary Care Provider Unavailable Encounter Details Date Type Department Care Team Description 03/08/[address] [facility] Oh Lynch M.D. [address] [place] [address] (Wo rk) Social History Tobacco Use [...] of this encounter Miscellaneous Notes Miscellaneous - Kei Gonzalez R.N. - 03/08/2015 11:16 AM CST PHQ-9 PHQ-9 Entered On: 03/08/2015 11:16 VEGETABLE BUNCHER Performed On: 03/08/2015 11:16 VEGETABLE BUNCHER by KEI GONZALEZ RN PHQ-9 Little interest or pleasure in doing things : Not at all Feeling down, depressed, or hopeless : Not at all Trouble falling or staying asleep, or sleeping too much : Several days Feeling tired or having little energy : Several days Poor appetite or overeating : Not at all Feeling bad about yourself or that you are a failure : Not at all Trouble concentrating on things : Not at all Moving or speaking slowly; restless or fidgety : Not at all Thoughts that you would be better off /hurting self : Not at all PHQ-9 Calculated Score : 2 KEI GONZALEZ RN - 03/08/2015 11:16 VEGETABLE BUNCHER Source: [facility] Document Id: [id number] VEGETABLE BUNCHER!12 TABLE BUNCHER Miscellaneous - Kei Gonzalez R.N. - 03/08/2015 10:55 AM CST Geremias 03/23/15 From: KEI GONZALEZ RN ([facility] Surgery Nurse Bullet Swaging Machine Operator) To: Anesthesia; Sent: 03/08/2015 10:55:18 VEGETABLE BUNCHER Subject: Geremias 03/23/15 SURGERY NURSE ACID REGENERATOR Skin Alert Assessment: Complete this section only if the patient is greater than or equal to 18 y/o BMI <19 or >40: (x) No (_) Yes Documented risk factors that indicate higher risk for pressure ulcer? (x) No (_) Yes Is patient chair-bound or unable to reposition themselves? (x) No (_) Yes Do you have impaired sensation? (x) No (_) Yes Anesthesia Risk Assessment: Do you use a CPAP or BiPAP machine? (x) No (_) Yes: patient instructed to bring day of surgery (_) Yes Have you been told that it is difficult to place a breathing tube in your airway (intubate)? (x) No (_) Yes Comment: _ Do you or a family member have a history of high fever after anesthesia (malignant hyperthermia)? (x) No (_) Yes Comment: _ Do you have any personal or family history of severe allergic or anaphylactic reactions to anesthetic agents? (x) No (_) Yes Comment: Patient reports history of post op nausea and vomiting Do you have difficulties lying flat? (x) No (_) Yes Comment: _ Do you have any oriental orthodox or other objection to having a blood transfusion? (x)No (_)Yes Scheduling Follow-Up: Sales Account Associate requested: (x) N/A (_) Yes Comment: _ Ortho Patients Only: Total Joint Class scheduled: (x) N/A Date: _ Knee Manipulation-CPM set-up: (x) N/A (_) Yes Comment: _ If OT apt needed - setup one hour after clinic post-op: (x) N/A (_) Yes Back brace fitted: (x) N/A (_) Yes Pre-op teaching reviewed with patient including instruction on: -Must shower the night before surgery and the morning of surgery to reduce the risk of infection. -For procedures above the shoulders patient must wash their hair the night before or the morning of surgery and then no styling products in the hair. -backhaul driver required for same day surgery patients, patient should not be alone for 24 hours after surgery and most patients are discharged 1-3 hours after surgery -If there are changes in health prior to surgery notify department performing surgery -where and how to check in on day of surgery -what to bring with on the day of the surgery Fasting guidelines: (x)Adults and children over 2 years old - Nothing to eat or drink after midnight the day before surgery with the exception that clear liquids only are allowed until 4 hours before arrival time. At 4 hours before arrival time nothing by mouth (_)Children under 2 years old - Nothing to eat or drink after midnight the day before surgery with the following exceptions: Formula is allowed up to 8 hours before surgery, breast milk is allowed up to 6 hours before surgery, clear liquids are allowed up to 2 hours befroe surgery. Nothing at all by mouth at 2 hours before arrival.[place] Patient and/or parent/guardian informed that failure to follow the fasting guidelines may result in case cancellation. Planning for surgery: -All surgery patients must have a pre-op physical within 30 days of surgery , - Surgery brochure given or mailed to patient if they have not received one already, reviewed surgical site infection teaching sheet, reviewed orthopedic pain management letter for all orthopedic cases and offered patient guided imagery CD -Reviewed managing your pain insert and patient has a copy in writing (_)Total Joint Surgery: Total Joint Class (good for one year) and gave patient hibiclens packet and reviewed preop showering instructions (x)Total Shoulder Surgery: Gave patient hibiclens packet and reviewed preop showering instruction, Reviewed teaching points for total shoulders, completed discharge planning form and routed to discharge planners, completed PHQ 9 and gave patient [facility] Shoulder Replcement Surgery, Patient Education (_)Reviewed parental presence program (_)Reviewed tonsillectomy teaching sheet (_)Reviewed ear tube teaching sheet (_)Pre op PT appt (total shoulders only) Post op appointments: 1st po with surgeon or physician metal moulder's assistant: (x) made (_)TBD (_)Audiology appointment (PE tubes), (_)2 days post op ultrasound to r/o DVT (VNUS closure), (_)PO OT appt made (Hand surgery if requested) Source: [facility] POWERCHART Document Id: [id number] documented in this encounter Plan of Treatment Not on filedocumented as of this encounter Visit Diagnoses Not on filedocumented in this encounter Additional Health Concerns Assessment Noted Time PHQ-9 Depression Total Score: 2 03/08/2015 11:16 AM CS T documented as of this encounter
--- OUTSIDE RECORDS SUMMARY | 2021-12-17 09:49 | XMS_ITS | Encounter Summary ---
:1940 Author Organization [facility] Address [address] [place] [address] Care Team Providers Name Role Phone Unavailable Primary Care Provider Unavailable Encounter Details Date Type Department Care Team Description 07/10/2016 Hospital Encounter HX [facility] Kalyan Taveras ROO M.D. [address] [place] [id number] (wo rk) Social History Tobacco Use Types Packs/Day Years Used Date Smoking Tobacco: Former Sex Assigned at Date Recorded Not on file documented as of this encounter Last Filed Vital Signs Vital Sign Reading Time Taken Comments Blood Pressure 133/78 07/10/2016 12:09 PM RADIOCOMMUNICATIONS TECHNICIAN Pulse 61 07/10/2016 12:09 PM RADIOCOMMUNICATIONS TECHNICIAN Temperature - - Respiratory Rate 20 07/10/2016 12:09 PM RADIOCOMMUNICATIONS TECHNICIAN Oxygen Saturation - - Inhaled Oxygen Concentration - - Weight - - Height - - Body Mass Index - - documented in this encounter Discharge Summaries Britt Patterson R.N. - 07/10/2016 12:21 PM CST Hospital Discharge Instructions [address] [id number] Patient Discharge Instructions Name: RYLEY DURÁN Current Date: 07/10/2016 12:21:54 : 1940 12:00 AM [facility] Number: [id number] Patient Address: [address] [place] [phone] Patient Primary Care Provider: Name: PCP, MAKENZIE Phone: Discharge Diagnosis: [facility] in [place] would like to thank you for allowing us to assist you withyour healthcare needs. The following includes patient education materials and information regarding your injury/illness. Comment: RYLEY DURÁN has been given the following list of follow-up instructions, medication list, andpatient education materials: Follow-up Instructions Discharge Diet Diet Type: Resume previous diet Medications Medication/Strength How to Take Indications/Special Instructions/Comments/Notes for [...] 5 minutes as needed for Chest Pain omeprazole (Prilosec 20 mg oral delayed release capsule) 1 cap, Oral, once a day Stop Taking the Following Medications: Medication list as of 07-10-16 12:21 Attention: If you have any medications at home that are not on this list, DO NOT take them until youcontact your provider for clarification. Give a copy of your medication list to your primary care provider. Update your medication list any time medications or doses are changed and carry your medication list at all times in case of emergency. Comment: Electronically Signed By: PINKY ORDONEZ MD Signed On:10-JUL-2016 11:26:59 Your Upcoming Appointments Date Time Location Provider No Appointments found Consider Using Patient Online Services Patient Online [...] if you dont have one. Go to [email or web address] and click on Create Your Account. Then, follow the directions to complete the online form. Youll be asked for your [facility] number which you can find at the top of this document. LUIS ARMANDO Reed MARK ARNOLD , have received the attached patient education materials/instructions and haveverbalized understanding: Patient Signature Date Time Care Provider Signature Date Time [address]334 Endoscopy/Colonoscopy/Flexible Sigmoidoscopy Post-Procedure Discharge Instructions Date: Sunday, July 10, 2016 Procedure: Colonoscopy Person(s) taught: patient Your procedure today showed: sigmoid diverticulosis You have just had an endoscopic procedure. Your follow-up instructions are indicated below. Do not drive or use heavy equipment for 24 hours. The drugs you were given may cause dizziness or drowsiness and slower reaction time. You may resume eating, drinking, usual medications at: right away You may resume exercise tomorrow. Do not drink alcohol for 8 hours. It interacts with the medicationused. For safety precautions, have an adult stay with you five hours post-procedure. The physician or nurse will contact you by letter in one week if pathology was done. Repeat exam should be performed in five (5) years. WHAT TO WATCH FOR: Problems rarely occur after the exam; however, it is important for you to be aware of the early signs of a possible complication. Immediately call your doctor or the Emergency Department ([phone])if you have any questions OR notice any of the followin. Unusual pain or difficulty in swallowing (EGD Only). 2. Unusual abdominal or chest pain. 3. Coughing up blood (EGD Only). 4. Passing blood clots from the rectum. 5. Temperature above 100.6 degrees F (37.5 C), fever, or chills. 6. Shortness of breath. 7. Swelling or drainage from you IV site. OTHER SPECIFIC INSTRUCTIONS: High fiber diet High Fiber Diet Fiber is present in all fruits, vegetables, cereals and grains. Fiber passes through the body undigested. A high fiber diet helps food move through the intestinal tract. The added bulk is helpful in preventing constipation. In people with diverticulosis it serves to clean out the pouches along the colon wall while preventing new ones from forming. A high fiber diet also reduces the risk of colon cancer, decreases blood cholesterol and prevents high blood sugar in people with diabetes. The foods listed below are high in fiber and should be included in your diet. If you are not used tohigh fiber foods, start with 1 or 2 foods from this list. Every 3-4 days add a new one to your diet until you are eating 4 high fiber foods per day. This should give you 20-35 Gm of fiber/day. It is also important to drink a lot of water when you are on this diet (6-8 glasses a day). Water causes the fiber to swell and increases the benefit. Foods High In Dietary Fiber: BREADS: Made with 100% whole wheat flour; perez, wheat or rye crackers; tortillas, bran muffins CEREALS: Whole grain cereal with bran (Chex, Raisin Bran, [place] Bran), oatmeal, rolled oats, granola,wheat flakes, brown rice NUTS: Any nuts FRUITS: All fresh fruits along with edible skins, (bananas, citrus fruit, mangoes, pears, prunes, raisins, apples, pineapple, apricot, melon, jams and marmalades), fruit juices (especially prune juice) VEGETABLES: All types, preferably raw or lightly cooked: especially, celery, eggplant, potatoes,spinach, broccoli, brussel sprouts, winter squash, carrots, cauliflower, soybeans, lentils, fresh and dried beans of all kinds OTHER: Popcorn, any spices ?? [id number] [employer], [address] [place] [address], [place] [address]. All rights reserved. This information is not intended as a substitute for professional medical care. Always follow your healthcare professional's instructions. Understanding Diverticulosis and Diverticulitis Pouches or diverticula usually occur in the lower part of the colon called the sigmoid. Diverticulitis occurs when the pouches become inflamed. The colon (large intestine) is the last part of the digestive tract. It absorbs water from stool andchanges it from a liquid to a solid. In certain cases, small pouches called diverticula can form in the colon wall. This condition is called diverticulosis. The pouches can become infected. If this happens, it becomes a more serious problem called diverticulitis. These problems can be painful. But they can be managed. Managing Your Condition Diet changes or taking medications are often tried first. These may be enough to bring relief. If the case is bad, surgery may be done. You and your doctor can discuss the plan that is best for you. If You Have Diverticulosis Diet changes are often enough to control symptoms. The main changes are adding fiber (roughage) and drinking more water. Fiber absorbs water as it travels through your colon. This helps your stool staysoft and move smoothly. Water helps this process. If needed, you may be told to take hkuf-rat-dfegqeb stool softeners. To help relieve pain, antispasmodic medications may be prescribed. If You Have Diverticulitis Treatment depends on how bad your symptoms are. ?? For mild symptoms: You may be put on a liquid diet for a short time. You may also be prescribed antibiotics. If these two steps relieve your symptoms, you may then be prescribed a high-fiber diet. If you still have symptoms, your doctor will discuss further treatment options with you. ?? For severe symptoms: You may need to be admitted to the hospital. There, you can be given IV antibiotics and fluids. Once symptoms are under control, the above treatments may be tried. If these dontcontrol your condition, your doctor may discuss the option of having surgery with you. [place] to Colon Health Help keep your colon healthy with a diet that includes plenty of high-fiber fruits, vegetables, and whole grains. Drink plenty of liquids like water and juice. ?? [id number] In[employer] [facility], [address] [place] [address], [place] [address]. All rights reserved. This information is not intended as a substitute for professional medical care. Always follow your healthcare professional's instructions. This document has images extracted. Please consider using [employer] for all your patient education needs. Source: [facility] POWERCHART Document Id: [id number] OCOMMUNICATIONS TECHNICIAN Britt Patterson R.N. - 07/10/2016 12:21 PM CST Hospital Discharge Medication List [address] [id number] Discharge Medication List Name: RYLEY DURÁN Current Date: 07/10/2016 12:21:53 : 1940 12:00 AM [facility] Number: [id number] Patient Address: [address] [place] [id number] Patient Primary Care Provider: Name: PCPMAKENZIE Phone: Discharge Diagnosis: [facility] in [place] would like to thank you for allowing us to assist you withyour healthcare needs. The following includes patient education materials and information regarding your injury/illness. Medications Medication/Strength How to Take Indications/Special Instructions/Comments/Notes for [...] 5 minutes as needed for Chest Pain omeprazole (Prilosec 20 mg oral delayed release capsule) 1 cap, Oral, once a day Stop Taking the Following Medications: Medication list as of 07-10-16 12:21 Attention: If you have any medications at home that are not on this list, DO NOT take them until youcontact your provider for clarification. Give a copy of your medication list to your primary care provider. Update your medication list any time medications or doses are changed and carry your medication list at all times in case of emergency. Comment: Electronically Signed By: PINKY ORDONEZ MD Signed On:10-JUL-2016 11:26:59 Source: [facility] [employer] Document Id: [id number] OCOMMUNICATIONS TECHNICIAN Britt Patterson R.N. - 07/10/2016 12:20 PM CST Discharge Summary Discharge Summary Entered On: 07/10/2016 12:21 RADIOCOMMUNICATIONS TECHNICIAN Performed On: 07/10/2016 12:20 RADIOCOMMUNICATIONS TECHNICIAN by BRITT PATTERSON RN DC Information Discharged to : Home independently, Home with family care Current Home Treatments : None Home Equipment : None Professional Skilled Services : None Special Services and Community Resources : None Mode of Discharge : Ambulatory Discharge Transportation : Private vehicle Accompanied By : Shower Room Attendant, Family Date/Time of Discharge : 07/10/2016 12:20 RADIOCOMMUNICATIONS TECHNICIAN Add'l Discharge Comments : patient has been discharged - [facility] for spouse to pickhi up - she had an errand to the airport BRITT PATTERSON RN - 07/10/2016 12:20 RADIOCOMMUNICATIONS TECHNICIAN Source: [facility] [employer] Document Id: [id number] RADIOCOMMUNICATIONS TECHNICIAN!12 OCOMMUNICATIONS TECHNICIAN documented in this encounter Medications at [...] suggests that it was the tartrate formulation. topiiziywgzh-jerdlksg-mni Take 1 tablet by 0 06/0608/15/2018 ifrah gluconate mouth daily. (MULTIVITAMIN WITH MINERALS) 9 mg iron/[address] 1 tablet under 0 06/25/2016 0 11/30/2021 (for_NITROSTAT) 0.4 mg SL the tongue every 5 tablet (five) minutes as needed for chest pain. omeprazole (PriLOSEC) 20 Take 1 capsule by 0 09/0308/16/[address] capsule mouth daily. documented as of this encounter Procedure Notes Micheal Bennett RKumar. - 07/10/2016 10:21 AM CST Preprocedure Checklist Document Has Been Updated Preprocedure Checklist Entered On: 07/10/2016 10:24 RADIOCOMMUNICATIONS TECHNICIAN Performed On: 07/10/2016 10:21 RADIOCOMMUNICATIONS TECHNICIAN by MICHEAL BENNETT RN Checklist Last Fluid Intake : 07/10/2016 7:00 RADIOCOMMUNICATIONS TECHNICIAN Last Food Intake : 07/09/2016 12:00 RADIOCOMMUNICATIONS TECHNICIAN MICHEAL BENNETT RN - 07/10/2016 10:21 RADIOCOMMUNICATIONS TECHNICIAN Surgery Prep Grid Contacts/Glasses Removed : Yes Dentures Removed : NA (Comment: Full top and bottom [MICHEAL BENNETT RN - 07/10/2016 10:25 RADIOCOMMUNICATIONS TECHNICIAN] ) Hairpins/Hairpiecies Removed : NA Hearing Aid Removed : Yes (Comment: R THOMAS [MICHEAL BENNETT RN - 07/10/2016 10:25 RADIOCOMMUNICATIONS TECHNICIAN] ) Home Prep Complete : Yes Jewelry/Piercing Removed : NA Makeup/Nail Bolivian Removed : NA Oral Hygiene : NA Preop Scrub AM of Surgery : NA Preop Scrub Night Prior to Surgery : NA Prosthesis Removed : NA Tampon Removed : NA Verified - No hair products used : NA Voided iron miner blasting to procedure : Yes Wearing Patient Gown : Yes MICHEAL BENNETT RN - 07/10/2016 10:21 RADIOCOMMUNICATIONS TECHNICIAN Patient Rights Grid Blood Consent Signed : NA Surgical/Procedure Consent Signed : Yes MICHEAL BENNETT RN - 07/10/2016 10:21 RADIOCOMMUNICATIONS TECHNICIAN Family Location : , [place], going to the airport to pick someone up. Will be back to get patient. MICHEAL BENNETT RN - 07/10/2016 10:21 RADIOCOMMUNICATIONS TECHNICIAN Checklist II Patient Safety Grid Allergy Band on and Verified : NA (Comment: Patient states NKDA, side effect from statins [MICHEAL BENNETT RN - 07/10/2016 10:25 RADIOCOMMUNICATIONS TECHNICIAN] ) Anesthesia Consult : Yes Band on for Limb Alert : NA Blood Band on and Verified : NA Current ECG in Medical Record : Yes Current H&P in Medical Record : Yes Implants Verified : NA Medication Reconciliation on Chart : Yes Pacemaker/AICD Verified : NA ID Band on and Verified : Yes Preop Medications Sent With Patient : NA Relevant Images in Medical Record : NA Review of Labs : Yes Procedure/Site Verified by Patient/Family : Yes Procedure/Site Verified by RN : Yes Procedure/Site Verified by Physician : Yes Type & Screen/Type & Cross Completed : NA MICHEAL BENNETT RN - 07/10/2016 10:21 RADIOCOMMUNICATIONS TECHNICIAN RN Who Verified Site : MICHEAL BENNETT RN Physician Who Verified Site : PINKY ORDONEZ MD, KASEY J RN - 07/10/2016 10:21 RADIOCOMMUNICATIONS TECHNICIAN SORAYA Screening Known Obstructive Sleep Apnea : No - NOT diagnosed with SORAYA SORAYA Score : No qualifying data available. SORAYA Results : No qualifying data available. MICHEAL BENNETT RN - 07/10/2016 10:21 RADIOCOMMUNICATIONS TECHNICIAN SORAYA Assessment Do you have high blood pressure or have you been told to take medication for high blood pressure? : No Frequency of Snoring : Never Frequency of Gasping, Choking, Snorting : Never Total Number of Historical Features : 0 Neck Circumference (cm) : 40/41 Total Sleep Apnea Clinical Score Calc : 3 MICHEAL BENNETT RN - 07/10/2016 10:21 RADIOCOMMUNICATIONS TECHNICIAN Valuables/Belongings Valuables/Belongings Grid Valuables at Bedside Clothes, Patient Valuables : Jacket, Pants, Shirt, Shoes, Undergarments MICHEAL BENNETT RN - 07/10/2016 10:25 RADIOCOMMUNICATIONS TECHNICIAN Room Orientation/Facility Policy Reviewed : Yes Home Medication Disposition : None brought in with patient MICHEAL BENNETT RN - 07/10/2016 10:25 RADIOCOMMUNICATIONS TECHNICIAN Education Preprocedure Education Grid Procedure Type : Colonoscopy Education Topics : Anesthesia/Sedation, Pain management, Patient rights and responsibilities, Plan of care, Tubes/Drains/IV's Individuals Taught : Patient Barriers to Learning : None evident Teaching Method : Explanation, Printed materials Teaching Evaluation : Verbalizes understanding MICHEAL BENNETT RN - 07/10/2016 10:25 RADIOCOMMUNICATIONS TECHNICIAN Preop Holding Mode of Arrival : Ambulatory Preoperative Orders Complete : Yes MICHEAL BENNETT RN - 07/10/2016 10:25 RADIOCOMMUNICATIONS TECHNICIAN Advance Directive Advanced Directives : No Advance Directive Additional Information : No MICHEAL BENNETT RN - 07/10/2016 10:25 RADIOCOMMUNICATIONS TECHNICIAN Vital Signs Temperature Core : 36.0 DegC(Converted to: 96.8 DegF) (LOW) Peripheral Pulse Rate : 67 /min Respiratory Rate : 12 /min (LOW) Systolic Blood Pressure : 135 mmHg Diastolic Blood Pressure : 86 mmHg NIBP Mean : 102 mmHg SpO2 : 96 % Oxygen Therapy : Room air MICHEAL BENNETT RN - 07/10/2016 10:25 RADIOCOMMUNICATIONS TECHNICIAN Allergy (As Of: 07/10/2016 10:26:32 RADIOCOMMUNICATIONS TECHNICIAN) Allergies (Active) statins Estimated Onset Date: Unspecified ; Reactions: myalgia ; Created By: SILVER ABDUL MD; Reaction Status: Active ; Category: Drug ; Substance: statins ; Type: Side Effect ; Updated By: SILVER ABDUL MD; Reviewed Date: 07/10/2016 10:26 RADIOCOMMUNICATIONS TECHNICIAN Source: [facility] [employer] Document Id: [id number] RADIOCOMMUNICATIONS TECHNICIAN!86 OCOMMUNICATIONS TECHNICIAN Pinky Ordonez M.D. - 07/10/2016 12:00 AM CST [facility] PREOPERATIVE DIAGNOSES 1. Special screening for colorectal malignancy. 2. Personal history of colon polyps. POSTOPERATIVE DIAGNOSES 1. Special screening for colorectal malignancy. 2. Personal history of colon polyps. 3. Sigmoid diverticulosis. PROCEDURE PERFORMED Surveillance colonoscopy. SURGEON Pinky Ordonez MD ANESTHESIA MAC. INDICATIONS FOR PROCEDURE Ryley is a 76-year-old male who was referred by Dr. Silver Abdul for a surveillance colonoscopy. Patient last underwent a colonoscopy in 2009 where a tubular adenoma was removed. He has no family history of colon cancer. He has no recent changes in bowel habits, blood in his stool abdominal pain or masses. DESCRIPTION OF PROCEDURE Patient was seen preinduction and identified using 2 independent identifiers. Procedure details, expected recovery and potential complications were discussed with him. Complications discussed include bleeding, infection, perforation, missed lesion, anesthesia reaction, aspiration respiratory failure. He was agreeable to proceed with the procedure and signed the informed consent form. He was then brought in the endoscopy suite and placed on the endoscopy table in the left lateral decubitus position. He underwent MAC anesthesia induction and a surgical time out was performed. Procedural pause conducted to verify: Correct patient identity, procedure to be performed and as applicable, correct side and site, correct patient position and availability of implants, special equipment or special requirements. Digital rectal examination was performed which was normal. The colonoscope was inserted in the patient's rectum and advanced through the colon to the cecum, which was identified by the ileocecal valve and appendiceal orifice. The ileocecal valve was entered and the terminal ileum inspected. This was normal in appearance. As the scope was withdrawn, the colon was inspected for abnormalities. Patient was noted to have extensive diverticulosis of the sigmoid colon. There was no evidence of inflammationor bleeding. Retroflexion view was performed in the rectum which was normal in appearance. Once the scope was removed. The patient was awoken from anesthesia and brought to the postanesthesia care unitin good condition. All counts were correct x2. Patient tolerated the procedure well. Patient's prep was good. Procedure was performed without difficulty. FINDINGS 1. Sigmoid diverticulosis. 2. Normal terminal. ESTIMATED BLOOD LOSS None. SPECIMENS None. DRAINS None. COMPLICATIONS None. RECOMMENDATIONS Patient will be discharged home today. He can follow up with primary care provider on an as-needed basis. I recommend repeat colonoscopy for surveillance purposes in 5 years. Pinky Ordonez M.D./dirk cc: Silver Abdul M.D. [facility] [address] Electronically Signed By: PINKY ORDONEZ MD On: 07/16/2016 09:29 AM Source: [facility] [email or web address] Document Id: [id number] documented in this encounter Nursing Notes Micheal Bennett R.N. - 07/10/2016 10:26 AM CST Day Surgery Admission History/Asmt Adult Document Has Been Updated Day Surgery Admission History/Asmt Adult Entered On: 07/10/2016 10:31 RADIOCOMMUNICATIONS TECHNICIAN Performed On: 07/10/2016 10:26 RADIOCOMMUNICATIONS TECHNICIAN by MICHEAL BENNETT RN General Info Preferred Name : Ryley Admitted From : Non-Health Care Facility Point of Origin Mode of Arrival : Ambulatory Present in Room During Exam/Procedure : Spouse Preferred Communication Mode : Verbal Information Given By : Patient Languages : Sami Is Patient Female and 13-50 no hysterectomy : No MICHEAL BENNETT RN - 07/10/2016 10:26 RADIOCOMMUNICATIONS TECHNICIAN Allergy (As Of: 07/10/2016 10:31:05 RADIOCOMMUNICATIONS TECHNICIAN) Allergies (Active) statins Estimated Onset Date: Unspecified ; Reactions: myalgia ; Created By: SILVER ABDUL MD; Reaction Status: Active ; Category: Drug ; Substance: statins ; Type: Side Effect ; Updated By: SILVER ABDUL MD; Reviewed Date: 07/10/2016 10:26 RADIOCOMMUNICATIONS TECHNICIAN Anesth/Transfusion Anesthesia/Transfusions : Prior anesthesia reaction Anesthesia Reaction : Excessive post op nausea Transfusion Acceptable in Emergency : Yes Holiness/Other Objections to Blood Transfusions : No MICHEAL BENNETT RN - 07/10/2016 10:26 RADIOCOMMUNICATIONS TECHNICIAN ID Screen Drug Resistant Organism : No MICHEAL BENNETT RN - 07/10/2016 10:26 RADIOCOMMUNICATIONS TECHNICIAN Nutrition Have you recently lost weight without trying? : No Decreased Appetite Nutrition : No Tube Feedings or Parenteral Nutrition : No MST Score : 0 Home Diet : Regular Appetite : Excellent MICHEAL BENNETT RN - 07/10/2016 10:26 RADIOCOMMUNICATIONS TECHNICIAN Home Environment Current Daily Living Assistance : None Living Situation : Home independently Home Equipment : None Sensory Deficits : None Mobility Assistance Prior to Admission : Independent Current Home Treatments : None Professional Skilled Services : None Special Services and Community Resources : None MICHEAL BENNETT RN - 07/10/2016 10:26 RADIOCOMMUNICATIONS TECHNICIAN Dependent Habits Exposure to Tobacco Smoke : Other: former Smoking Status : Former smoker Tobacco 2A : Yes Tobacco Use/Currently Using : No Tobacco Use/Last 30 Days : No Tobacco Use/Last 12 months : No MICHEAL BENNETT RN - 07/10/2016 10:26 RADIOCOMMUNICATIONS TECHNICIAN Caffeine Use Grid Caffeine Use : Current Type : Coffee Frequency : Daily MICHEAL BENNETT RN - 07/10/2016 10:26 RADIOCOMMUNICATIONS TECHNICIAN Psychosocial Adult Domestic Abuse Concerns : None Behavioral Health Screen/Safety Assmt : No Holiness Preference : Adventism MICHEAL BENNETT RN - 07/10/2016 10:26 RADIOCOMMUNICATIONS TECHNICIAN Advance Directive Advanced Directives : No Advance Directive Additional Information : No MICHEAL BENNETT RN - 07/10/2016 10:26 RADIOCOMMUNICATIONS TECHNICIAN Educ Needs Patient/Family Education Needs : Activity limitations/expectations, Plan of care, Safety, fall, Treatments/Procedures/Tests MICHEAL BENNETT RN - 07/10/2016 10:26 RADIOCOMMUNICATIONS TECHNICIAN Learning Style Preference Adult Grid Patient : Verbal explanation, Printed materials Family : Verbal explanation MICHEAL BENNETT RN - 07/10/2016 10:26 RADIOCOMMUNICATIONS TECHNICIAN Outpatient Assessment Procedural Respiratory : Respirations unlabored, Respiratory pattern regular, Breath sounds clear all lobes, No cough Procedural Cardiovascular : Heart rhythm regular, Skin color normal for ethnicity, Skin dry and warm Procedural Neurological : Alert, Oriented x 3, Gait steady, No swallowing difficulty/aspiration risk Procedural Gastrointestinal : Abdomen non-tender and soft, Bowel sounds all quadrants Procedural Genitourinary : Voiding, no difficulties Procedural Integumentary : Skin integrity intact Procedural Musculoskeletal : Activity tolerance without distress MICHEAL BENNETT RN - 07/10/2016 10:26 RADIOCOMMUNICATIONS TECHNICIAN Psycho/Emotional Affect/Behavior : Calm, Cooperative, Appropriate Pain Symptoms : No MICHEAL BENNETT RN - 07/10/2016 10:26 RADIOCOMMUNICATIONS TECHNICIAN Coping Grid Identifies effective strategies : Yes Uses effective strategies : Yes Reports increase in psychological comfort : Yes Indicates sense of control : Yes Stressors perceived within control : Yes Stable mood with appropriate affect : Yes Behaviors indicate use of coping mechanism : Yes Family supportive and involved in care : Yes Values/Beliefs incorporated appropriately : Yes MICHEAL BENNETT RN - 07/10/2016 10:26 RADIOCOMMUNICATIONS TECHNICIAN Safety Grid Vision, Hearing, Mobility Adequate to Meet Safety Needs : Yes MICHEAL BENNETT RN - 07/10/2016 10:26 RADIOCOMMUNICATIONS TECHNICIAN Peripheral IV Peripheral IV Assess/Intervention Grid Peripheral IV #1 IV Activity : Start Number of Attempts : 1 Date of Insertion : 07/10/2016 RADIOCOMMUNICATIONS TECHNICIAN IV Site : Hand Laterality : Right Catheter Size : 20 Catheter Type : Over the needle Site Condition : No complications Dressing/ Activity : Transparent Flow/ Patency : No complications IV Equipment/Supplies : Regular Comments (Comment: Inserted by Reno Patterson RN [MICHEAL BENNETT RN - 07/10/2016 10:26 RADIOCOMMUNICATIONS TECHNICIAN] ) MICHEAL BENNETT RN - 07/10/2016 10:26 RADIOCOMMUNICATIONS TECHNICIAN Hawk Sensory Perception Hawk : No impairment Moisture Hawk : Rarely moist Activity Hawk : Walks frequently Mobility Hawk : No limitations Nutrition Hawk : Excellent Friction and Shear Hawk : No apparent problem Hawk Score : 23 MICHEAL BENNETT RN - 07/10/2016 10:26 RADIOCOMMUNICATIONS TECHNICIAN Falls Assessment Fall Injury Risk History of Falls : No Patient at Risk for Falls : No Fall Injury Risk Factors : None of the below Risk Factors Patient has increased Fall Injury Risk : No MICHEAL BENNETT RN - 07/10/2016 10:26 RADIOCOMMUNICATIONS TECHNICIAN Hendrich II Fall Risk Confusion/Disorientation Hendrich : No Depression Fall Risk Hendrich : No Altered Elimination Fall Risk Hendrich : No Dizziness/Vertigo Fall Risk Hendrich : No Gender, Male Fall Risk Hendrich : Yes Prescribed Antiepileptics Hendrich : No Prescribed Benzodiazepines Hendrich : No Rising From Chair Fall Risk Hendrich : Pushes up, successful in one attempt Fall Risk Score Hendrich II : 2 MICHEAL BENNETT RN - 07/10/2016 10:26 RADIOCOMMUNICATIONS TECHNICIAN DC Needs Anticipated Discharge Date : 07/10/2016 RADIOCOMMUNICATIONS TECHNICIAN Discharge To, Anticipated : Home with family FPC Treatments, Anticipated : None Home Equipment, Anticipated : None Professional Skilled Services, Anticipated : None Special Serv & Comm Res, Anticipated : None Needs Assistance with Transportation : No Needs Assistance at Home Upon Discharge : No MICHEAL BENNETT RN - 07/10/2016 10:26 RADIOCOMMUNICATIONS TECHNICIAN Source: [facility] POWERCHART Document Id: [id number] RADIOCOMMUNICATIONS TECHNICIAN!126 OCOMMUNICATIONS TECHNICIAN iMcheal Bennett R.N. - 07/04/2016 4:24 PM CST Pre Procedure Phone Call Endoscopy Pre-Procedure Phone Call Procedure: Colonoscopy Date: 07/10/2016 PCP: [facility] Current Medications (including herbal and OTC's) Beta Alberto (_) Yes (x) No _ Antiarrhythmic (_) Yes (x) No _ ASA (x) Yes (_) No Coumadin (_) Yes (x) No NSAIDS (_) Yes (x) No Steroids (_) Yes (x) No Diabetic oral/insulin (_) Yes (x) No If yes have you discussed use preprocedure with primary care provider (_) yes (_) no. Comment: _ Assessment Smoker (_) Yes (x) No_ Former If yes PPD _ Alcohol use _ None EKG _ Yes, Sinus bradycardia Labs _ Yes Dentures (x) Yes (_) No_ Full top and bottom Hearing aids (x) Yes (_) No_ Bilateral Allergies: Statins Previous Surgical Procedures Verification (x) Yes (_) No Comment: _ Medical History Verification (x) Yes (_) No Comment: _ Recent respiratory issues (_) Yes (x) No GERD/Reflux/Ulcers (x) Yes (_) No_ Controlled with omeprazole Polyps / Diverticulum (x) Yes (_) No_ Hx of diverticulum noted Constipation Issues/Colonoscopy Prep Issues (_) Yes (x) No Rectal bleeding (_) Yes (x) No Stool changes (_) Yes (x) No Kidney Issues (_) Yes (x) No Bleeding tendencies (_) Yes (x) No Anesthesia Assessment Do you use a CPAP or BiPAP machine? No (x) Yes (_) Have you been told that it is difficult to place a breathing tube in your airway (intubate)? (_) Yes(x) No. Comment: _ Do you or a family member have a history of high fever after anesthesia (malignant hyperthermia)? (_) Yes (x) No. Comment: _ Do you or a family member have a history of severe allergic or anaphylactic reactions to anesthetic agents? (_) Yes (x) No. Comment _ Do you have difficulties lying flat? (_) Yes (x) No. Comment: _ Do you have hinduism or other objection to having a blood transfusion? (_) Yes (x) No Day before procedure: - Eat a light breakfast -Remember no foods with seeds, berries or nuts, No dairy products and avoid liquids with red or purple dyes. -Light lunch and light snack before starting prep after this start clear liquids. -Plan to start prep between 2pm and 6pm. This is mixed with 64 ounces of Gatorade and once mixed putin fridge when not being used. - Drink 8 ounces every 10-15 minutes until half gone - Take all 4 tablets with 8 ounces clear liquid - Recommended to continue to drink at least 8 ounces of clear liquid of your choice every hour untilbed Morning of Procedure: - 5 hours before you arrive at hospital start drinking the last of the prep . Drink this in 2 hours. - My have sips of water 2 hours before arrival time. Please do not chew gum, suck on hard candy. - Bowel movements should be clear yellow fluid Education: (x) Take your prescription medications as recommended by your provider including antiarrhythmics andbeta-alberto medications. (x) Please bring any new medications with you if seen out of network (x) Endoscopy prep reviewed (x) Leave money and valuables at home (x) Do you have a sprinkler truck driver. Please have their telephone number (x) NPO 2 hours prior to arrival (x) Check in information (x) Be sure to have verified your scheduled procedure with your insurance company [employer] Do not drive for 24 hours after procedure. Please have a sprinkler truck driver with you to take you home. Arrange for a person to stay with you at least 5 hours after procedure. If you have any questions at any time please call . Electronically Signed By: MICHEAL BENNETT RN On: 07/09/2016 02:29 PM Modified by and Electronically Signed by: MICHEAL BENNETT RN On: 07/09/2016 02:29 PM Source: [facility] POWERCHART Document Id: [id number] OCOMMUNICATIONS TECHNICIAN documented in this encounter OR Notes Op Note - Owen Paniagua APRN, JONATHAN - 07/10/2016 11:40 AM CST anes, Post-anesthesia Assessment POSTANESTHESIA ASSESMENT T, P, RR, and SpO2 VITAL SIGNS Temperature Core: 36.0 Low Peripheral Pulse Rate: 61 Respiratory Rate: 20 SpO2: 96 BP BLOOD PRESSURE Systolic Blood Pressure: 141 High Diastolic Blood Pressure: 74 Cardiovascular Status [_x] Hemodynamics (HR and BP) acceptable [_] Hemodynamics (HR and BP) unacceptable requiring ongoing treatment Respiratory Support [_x] Patent airway with unassisted ventilation [_] Patent airway with the need for PAP therapy (CPAP, BPAP) [_] Mechanically ventilated Oxygen Requirements [_x] Room air [_] Nasal cannula [_] Closed face mask [_] Assisted ventilation (noninvasive or mechanical) with supplemental oxygen [_] Other: _ Level of Consciousness [_x] Awake [_] Sedated, but awakens easily [_] Sedated, difficult to awake, patient unable to participate in evaluation [_] Unconscious, patient unable to participate in evaluation Temperature [_x] Normothermic [_] Hypo or hyperthermic requiring ongoing treatment Pain [_x] Adequately controlled and/or at baseline [_] Requiring further management [_] Unable to be assessed Nausea/Vomiting [_x] No [_] Yes, treated as necessary Intravascular Volume Status [_x] Euvolemic [_] Hypo or hypervolemic requiring ongoing treatment Anesthesia Observations [_x] None apparent [_] Refractory nausea and vomiting [_] Dental/Oral injury [_] Eye injury [_] New or changed neurologic deficit [_] Other (Document in comments) Disposition [_] General care unit [_] Monitored care unit (ICU, PCU, ED, etc.), expectation for recovery time deferred to receiving unit [_x] Dismissal [_] Other: _ Comments _ Electronically Signed By: OWEN PANIAGUA APRN, CRNA On: 07/10/2016 12:45 PM Source: [employer] POWERCHART Document Id: [id number] OCOMMUNICATIONS TECHNICIAN documented in this encounter Miscellaneous Notes Miscellaneous - Arleth Ryan R.N. - 07/31/2016 3:08 PM CDT Reminder Msg From: ARLETH RYAN RN To: [place] Colonoscopy Pool; Sent: 07/31/2016 15:08:06 CDT Show up: 05/05/2021 15:08:00 RADIOCOMMUNICATIONS TECHNICIAN Subject: Reminder Msg Due Date/Time: 07/03/2021 15:08:00 RADIOCOMMUNICATIONS TECHNICIAN Please Remember to: Repeat scope in 5 years. PATIENT: ( ) Call Patient ( ) Ask Patient to ( ) ( ) Call Relative ( ) Schedule Patient ( ) ( ) Call for Kiln Car Unloader ( ) Follow up on Results ( ) Other: PROVIDER: ( ) Call Physician ( ) Call Pharmacist ( ) Call Lab ( ) Other: Special Instructions: Comments: Source: [facility] [employer] Document Id: [id number] Miscellaneous - Britt Patterson, R.N. - 07/10/2016 12:20 PM CST Valuables/Belongings Valuables/Belongings Entered On: 07/10/2016 12:21 RADIOCOMMUNICATIONS TECHNICIAN Performed On: 07/10/2016 12:20 RADIOCOMMUNICATIONS TECHNICIAN by BRITT PATTERSON RN Valuables/Belongings Valuables/Belongings Grid Valuables at Bedside Clothes, Patient Valuables : Jacket, Pants, Shirt, Shoes, Undergarments BRITT PATTERSON RN - 07/10/2016 12:21 RADIOCOMMUNICATIONS TECHNICIAN Room Orientation/Facility Policy Reviewed : Yes Belongings Sent Home With : all with patient Home Medication Disposition : None brought in with patient BRITT PATTERSON RN - 07/10/2016 12:21 RADIOCOMMUNICATIONS TECHNICIAN Source: [facility] [employer] Document Id: [id number] RADIOCOMMUNICATIONS TECHNICIAN!8 OCOMMUNICATIONS TECHNICIAN Miscellaneous - Cheryl, Radha Provider Ser - 07/10/2016 12:20 PM RADIOCOMMUNICATIONS TECHNICIAN Coding Summary-Paper Based CODING DATE: 07/15/2016 FINAL [place] [facility] STATUS: * Discharged to Home or Self Care PAYOR: Medicare APC DESCRIPTION 5311 Level 1 Lower GI Procedures ADMIT DX: REASON FOR VISIT DX: FINAL DX: PRINCIPAL: Z12.11 Encounter for screening for malignant neoplasm of colon SECONDARY: Z86.010 Personal history of colonic polyps K57.30 Diverticulosis of large intestine without perforation or abscess without bleeding 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 However, the narrative phrase printed from the coding software may appear abbreviated, or result in slightly different terminology. Coded By: TESSA TRAORE Date Saved: 07/12/2016 11:52 am Source: [employer] Document Id: [id number] Miscellaneous - Britt Patterson, R.N. - 07/10/2016 12:09 PM CST Adult Postprocedure Assessment Adult Postprocedure Assessment Entered On: 07/10/2016 12:12 RADIOCOMMUNICATIONS TECHNICIAN Performed On: 07/10/2016 12:09 RADIOCOMMUNICATIONS TECHNICIAN by BRITT PATTERSON RN Vital Signs Temperature Core : 36.0 DegC(Converted to: 96.8 DegF) (LOW) Peripheral Pulse Rate : 61 /min Respiratory Rate : 20 /min Systolic Blood Pressure : 133 mmHg Diastolic Blood Pressure : 78 mmHg NIBP Mean : 96 mmHg SpO2 : 96 % Oxygen Therapy : Room air BRITT PATTERSON RN - 07/10/2016 11:57 RADIOCOMMUNICATIONS TECHNICIAN General Level of Consciousness : Alert Orientation : Oriented x 3 Skin Color : Normal for ethnicity Skin Description : Dry Skin Temperature : Warm Pain Symptoms : No BRITT PATTERSON RN - 07/10/2016 11:57 RADIOCOMMUNICATIONS TECHNICIAN Cardiovascular Heart Rhythm : Regular Nail Bed Color : [place] Capillary Refill : Less than 2 seconds BRITT PATTERSON RN - 07/10/2016 11:57 RADIOCOMMUNICATIONS TECHNICIAN Respiratory Respirations : Unlabored Respiratory Pattern : Regular All Lobes Breath Sounds : BRITT Dean 07/10/2016 11:57 RADIOCOMMUNICATIONS TECHNICIAN GI/ Nausea Symptoms : No BRITT PATTERSON 07/10/2016 11:57 RADIOCOMMUNICATIONS TECHNICIAN Integumentary Skin Color : Normal for ethnicity Skin Description : Dry Skin Temperature : Warm BRITT PATTERSON 07/10/2016 11:57 RADIOCOMMUNICATIONS TECHNICIAN I&O Oral Intake : 120 mL BRITT PATTERSON 07/10/2016 11:57 RADIOCOMMUNICATIONS TECHNICIAN Neurologic Swallowing Difficulty/Aspiration Risk : None Extremity Movement : Equal Facial Symmetry : Symmetric Characteristics of Speech : BRITT Dean 07/10/2016 11:57 RADIOCOMMUNICATIONS TECHNICIAN Activity Patient Position : Elevate head of bed 45 degrees Activity Status ADL : Up ad naomy Activity Assistance : Independent BRITT PATTERSON 07/10/2016 11:57 RADIOCOMMUNICATIONS TECHNICIAN PARSAP Activity Status : Moves 4 extremities voluntarily or on command Dressing : None Respiratory Component : Able to deep breathe and cough freely Pain : Pain free Circulation Component : BP 20% of preanesthetic level Ambulation : Able to stand up and walk straight Consciousness : Fully awake Fasting and Feeding : Able to drink fluids Oxygen Saturation - Sedation : Can maintain > 92% on room air Urine Output, PARSAP : Not assessed PARSAP Score : 20 BRITT PATTERSON 07/10/2016 11:57 RADIOCOMMUNICATIONS TECHNICIAN Vale Vale Agitation Sedation Scale (RASS) : Alert and calm RASS Score : 0 BRITT PATTERSON 07/10/2016 11:57 RADIOCOMMUNICATIONS TECHNICIAN Hawk Sensory Perception Hawk : No impairment Moisture Hawk : Rarely moist Activity Hawk : Walks frequently Mobility Hawk : No limitations Nutrition Hawk : Excellent Friction and Shear Hawk : No apparent problem Hawk Score : 23 BRITT PATTERSON 07/10/2016 11:57 RADIOCOMMUNICATIONS TECHNICIAN Falls Assessment Fall Injury Risk History of Falls : No Patient at Risk for Falls : No Fall Injury Risk Factors : None of the below Risk Factors Patient has increased Fall Injury Risk : No BRITT PATTERSON 07/10/2016 11:57 RADIOCOMMUNICATIONS TECHNICIAN Hendrich II Fall Risk Confusion/Disorientation Hendrich [...] of balance with steps Fall Risk Score Charito II : 1 BRITT PATTERSON RN - 07/10/2016 11:57 RADIOCOMMUNICATIONS TECHNICIAN Safe Patient Handling Safe Pt Handling Independent : Yes - No equipment needed Safe Pt Handling Equipment Rec : No Equipment Needed BRITT PATTERSON RN - 07/10/2016 11:57 RADIOCOMMUNICATIONS TECHNICIAN Education General Patient Education Powergrid Topics : Activity limitations/expectations, Discharge instructions/Medication list, Physical limitations, Plan of care, Printed materials, Safety, fall, When to call health care provider Individuals Taught : Patient Barriers to Learning : None evident Teaching Method : Explanation Teaching Evaluation : Verbalizes understanding BRITT PATTERSON RN - 07/10/2016 11:57 RADIOCOMMUNICATIONS TECHNICIAN [facility] Document Id: [id number] RADIOCOMMUNICATIONS TECHNICIAN!91 OCOMMUNICATIONS TECHNICIAN Miscellaneous - Britt Patterson RSelvin - 07/10/2016 11:48 AM CST Adult Postprocedure Assessment Adult Postprocedure Assessment Entered On: 07/10/2016 11:51 RADIOCOMMUNICATIONS TECHNICIAN Performed On: 07/10/2016 11:48 RADIOCOMMUNICATIONS TECHNICIAN by BRITT PATTERSON RN Vital Signs Peripheral Pulse Rate : 66 /min Respiratory Rate : 20 /min Systolic Blood Pressure : 139 mmHg Diastolic Blood Pressure : 79 mmHg NIBP Mean : 99 mmHg SpO2 : 97 % Oxygen Therapy : Room air BRITT PATTERSON RN - 07/10/2016 11:48 RADIOCOMMUNICATIONS TECHNICIAN General Level of Consciousness : Alert Orientation : Oriented x 3 Skin Color : Normal for ethnicity Skin Description : Dry Skin Temperature : Warm Pain Symptoms : No BRITT PATTERSON RN - 07/10/2016 11:48 RADIOCOMMUNICATIONS TECHNICIAN Cardiovascular Heart Rhythm : Regular Nail Bed Color : [place] Capillary Refill : Less than 2 seconds BRITT PATTERSON RN - 07/10/2016 11:48 RADIOCOMMUNICATIONS TECHNICIAN Respiratory Respiratory Patient Stated Symptoms : None Respirations : Unlabored Distress : None Respiratory Pattern : Regular Cough and Deep Breathe : Done Cough : None BRITT PATTERSON RN - 07/10/2016 11:48 RADIOCOMMUNICATIONS TECHNICIAN GI/ Nausea Symptoms : No BRITT PATTERSON RN - 07/10/2016 11:48 RADIOCOMMUNICATIONS TECHNICIAN Integumentary Skin Color : Normal for ethnicity Skin Description : Dry Skin Temperature : Warm BRITT PATTERSON 07/10/2016 11:48 RADIOCOMMUNICATIONS TECHNICIAN Peripheral IV Peripheral IV Assess/Intervention Grid Peripheral IV #1 IV Activity : Discontinue Removal : Catheter intact, Hemostasis within expected timeframe Date of Insertion : 07/10/2016 RADIOCOMMUNICATIONS TECHNICIAN Discontinued Date : 07/10/2016 RADIOCOMMUNICATIONS TECHNICIAN IV Site : Hand Laterality : Right Catheter Size : 20 Catheter Type : Over the needle Site Condition : No complications Drainage Description : None Infiltration Score : 0 Phlebitis Score : 0 BRITT PATTERSON 07/10/2016 11:48 RADIOCOMMUNICATIONS TECHNICIAN I&O Oral Intake : 120 mL Other Intake : 400 mL (Comment: I.V. fluids [BRITT PATTERSON 07/10/2016 11:48 RADIOCOMMUNICATIONS TECHNICIAN] ) BRITT PATTERSON 07/10/2016 11:48 RADIOCOMMUNICATIONS TECHNICIAN Nutrition Morning Snack : 100 % BRITT PATTERSON 07/10/2016 11:48 RADIOCOMMUNICATIONS TECHNICIAN Neurologic Swallowing Difficulty/Aspiration Risk : None Extremity Movement : Equal Facial Symmetry : Symmetric Characteristics of Speech : Appropriate for age BRITT PATTERSON 07/10/2016 11:48 RADIOCOMMUNICATIONS TECHNICIAN Activity Patient Position : Elevate head of bed 45 degrees BRITT PATTERSON 07/10/2016 11:48 RADIOCOMMUNICATIONS TECHNICIAN PARSAP Activity Status : Moves 4 extremities voluntarily or on command Dressing : None Respiratory Component : Able to deep breathe and cough freely Pain : Pain free Circulation Component : BP 20% of preanesthetic level Ambulation : Able to stand up and walk straight Consciousness : Fully awake Fasting and Feeding : Able to drink fluids Oxygen Saturation - Sedation : Can maintain > 92% on room air Urine Output, PARSAP : Not assessed PARSAP Score : 20 BRITT PATTERSON 07/10/2016 11:48 RADIOCOMMUNICATIONS TECHNICIAN Vale Vale Agitation Sedation Scale (RASS) : Alert and calm RASS Score : 0 BRITT PATTERSON 07/10/2016 11:48 RADIOCOMMUNICATIONS TECHNICIAN Hawk Sensory Perception Hawk : No impairment Moisture Hawk : Rarely moist Activity Hawk : Walks frequently Mobility Hawk : No limitations Nutrition Hawk : Excellent Friction and Shear Hawk : No apparent problem Hawk Score : 23 BRITT PATTERSON 07/10/2016 11:48 RADIOCOMMUNICATIONS TECHNICIAN Falls Assessment Fall Injury Risk History of Falls : No Patient at Risk for Falls : No Fall Injury Risk Factors : None of the below Risk Factors Patient has increased Fall Injury Risk : No BRITT PATTERSON RN - 07/10/2016 11:48 RADIOCOMMUNICATIONS TECHNICIAN Hendrich II Fall Risk Confusion/Disorientation Hendrich [...] Fall Risk Score Hendrich II : 1 BRITT PATTERSON RN - 07/10/2016 11:48 RADIOCOMMUNICATIONS TECHNICIAN Safe Patient Handling Safe Pt Handling Independent : Yes - No equipment needed Safe Pt Handling Equipment Rec : No Equipment Needed BRITT PATTERSON RN - 07/10/2016 11:48 RADIOCOMMUNICATIONS TECHNICIAN Source: [employer] Document Id: [id number] RADIOCOMMUNICATIONS TECHNICIAN!101 OCOMMUNICATIONS TECHNICIAN Miscellaneous - Pinky Ordonez M.D. - 07/10/2016 11:27 AM CST Hospital Patient Education The following Patient Education Materials have been given to the patient: Patient Education Materials: Discharge Instructions - Adult (CUSTOM) Ambulatory DIET, High FIber ED/Trauma Understanding Diverticulosis and Diverticulitis 10890 Endoscopy/Colonoscopy/Flexible Sigmoidoscopy Post-Procedure Discharge Instructions Date: Sunday, July 10, 2016 Procedure: Colonoscopy Person(s) taught: patient Your procedure today showed: n You have just had an endoscopic procedure. Your follow-up instructions are indicated below. Do not drive or use heavy equipment for 24 hours. The drugs you were given may cause dizziness or drowsiness and slower reaction time. You may resume eating, drinking, usual medications at: right away You may resume exercise tomorrow. Do not drink alcohol for 8 hours. It interacts with the medicationused. For safety precautions, have an adult stay with you five hours post-procedure. The physician or nurse will contact you by letter in one week if pathology was done. Repeat exam should be performed in Other WHAT TO WATCH FOR: Problems rarely occur after the exam; however, it is important for you to be aware of the early signs of a possible complication. Immediately call your doctor or the Emergency Department ([phone])if you have any questions OR notice any of the followin. Unusual pain or difficulty in swallowing (EGD Only). 2. Unusual abdominal or chest pain. 3. Coughing up blood (EGD Only). 4. Passing blood clots from the rectum. 5. Temperature above 100.6 degrees F (37.5 C), fever, or chills. 6. Shortness of breath. 7. Swelling or drainage from you IV site. OTHER SPECIFIC INSTRUCTIONS: N Ambulatory High Fiber Diet Fiber is present in all fruits, vegetables, cereals and grains. Fiber passes through the body undigested. A high fiber diet helps food move through the intestinal tract. The added bulk is helpful in preventing constipation. In people with diverticulosis it serves to clean out the pouches along the colon wall while preventing new ones from forming. A high fiber diet also reduces the risk of colon cancer, decreases blood cholesterol and prevents high blood sugar in people with diabetes. The foods listed below are high in fiber and should be included in your diet. If you are not used tohigh fiber foods, start with 1 or 2 foods from this list. Every 3-4 days add a new one to your diet until you are eating 4 high fiber foods per day. This should give you 20-35 Gm of fiber/day. It is also important to drink a lot of water when you are on this diet (6-8 glasses a day). Water causes the fiber to swell and increases the benefit. Foods High In Dietary Fiber: BREADS: Made with 100% whole wheat flour; perez, wheat or rye crackers; tortillas, bran muffins CEREALS: Whole grain cereal with bran (Chex, Raisin Bran, [place] Bran), oatmeal, rolled oats, granola,wheat flakes, brown rice NUTS: Any nuts FRUITS: All fresh fruits along with edible skins, (bananas, citrus fruit, mangoes, pears, prunes, raisins, apples, pineapple, apricot, melon, jams and marmalades), fruit juices (especially prune juice) VEGETABLES: All types, preferably raw or lightly cooked: especially, celery, eggplant, potatoes,spinach, broccoli, brussel sprouts, winter squash, carrots, cauliflower, soybeans, lentils, fresh and dried beans of all kinds OTHER: Popcorn, any spices ?? [id number] Inez Olivera, [address] [facility] [facility], [place] [address]. All rights reserved. This information is not intended as a substitute for professional medical care. Always follow your healthcare professional's instructions. ED/Trauma Understanding Diverticulosis and Diverticulitis Pouches or diverticula usually occur in the lower part of the colon called the sigmoid. Diverticulitis occurs when the pouches become inflamed. The colon (large intestine) is the last part of the digestive tract. It absorbs water from stool andchanges it from a liquid to a solid. In certain cases, small pouches called diverticula can form in the colon wall. This condition is called diverticulosis. The pouches can become infected. If this happens, it becomes a more serious problem called diverticulitis. These problems can be painful. But they can be managed. Managing Your Condition Diet changes or taking medications are often tried first. These may be enough to bring relief. If the case is bad, surgery may be done. You and your doctor can discuss the plan that is best for you. If You Have Diverticulosis Diet changes are often enough to control symptoms. The main changes are adding fiber (roughage) and drinking more water. Fiber absorbs water as it travels through your colon. This helps your stool staysoft and move smoothly. Water helps this process. If needed, you may be told to take tfis-wqg-rkjztrk stool softeners. To help relieve pain, antispasmodic medications may be prescribed. If You Have Diverticulitis Treatment depends on how bad your symptoms are. ?? For mild symptoms: You may be put on a liquid diet for a short time. You may also be prescribed antibiotics. If these two steps relieve your symptoms, you may then be prescribed a high-fiber diet. If you still have symptoms, your doctor will discuss further treatment options with you. ?? For severe symptoms: You may need to be admitted to the hospital. There, you can be given IV antibiotics and fluids. Once symptoms are under control, the above treatments may be tried. If these dontcontrol your condition, your doctor may discuss the option of having surgery with you. [place] to Colon Health Help keep your colon healthy with a diet that includes plenty of high-fiber fruits, vegetables, and whole grains. Drink plenty of liquids like water and juice. ?? [id number] [employer], [address] [place] [address], [place] [address]. All rights reserved. This information is not intended as a substitute for professional medical care. Always follow your healthcare professional's instructions. This document has images extracted. Please consider using [employer] for all your patient education needs. Source: [facility] POWERCHART Document Id: [id number] OCOMMUNICATIONS TECHNICIAN documented in this encounter Plan of Treatment Not on filedocumented as of this encounter Visit Diagnoses Not on filedocumented in this encounter Additional Health Concerns Assessment Noted Time PHQ-9 Depression Total Score: 2 03/08/2015 11:16 AM CS T documented as of this encounter
--- OUTSIDE RECORDS SUMMARY | 2021-12-17 09:49 | XMS_ITS | Encounter Summary ---
:1940 Author Organization [facility] Address [address] [place] [address] Care Team Providers Name Role Phone Unavailable Primary Care Provider Unavailable Encounter Details Date Type Department Care Team Description 01/29/2012 Hospital Encounter HX [facility] Paulette Pittman D, P.A.-C. Social History Tobacco Use Types Packs/Day Years Used Date Smoking Tobacco: Never Assessed Sex Assigned at Date Recorded Not on file documented as of this encounter Medications at Time of Discharge Medication Sig Dispensed Refills Start Date End Date CALCIUM CARB/VIT Take 1 tablet by 0 01/09/2010 D3/MINERALS mouth daily. (CALCIUM-VITAMIN D ORAL) omeprazole (PriLOSEC) 20 Take 1 capsule by 0 09/0308/16/[address] capsule mouth daily. documented as of this encounter Progress Notes Aydin Pittman - 01/29/2012 3:30 PM CDT [id number] SUBJECTIVE: F body Rt Ear today From hearing aid OBJECTIVE: saame ASSESSMENT 1. Foreign body in ear Plan;removed without Problem, rubber tip Tm ok canal ok Source[facility] Document Id: [id number] documented in this encounter Plan of Treatment Not on filedocumented as of this encounter Visit Diagnoses Not on filedocumented in this encounter
--- OUTSIDE RECORDS SUMMARY | 2021-12-17 09:49 | XMS_ITS | Encounter Summary ---
:1940 Author Organization [facility] Address [address] [place] [address] Care Team Providers Name Role Phone Unavailable Primary Care Provider Unavailable Encounter Details Date Type Department Care Team Description 07/01/2016 Hospital Encounter HX [facility] Tea Bethea M.D. [address] [place] [address] [phone] (Wo rk) Social History Tobacco Use Types [...] suggests that it was the tartrate formulation. qqzwczzufxsb-naignubb-shr Take 1 tablet by 0 02/2 05/2016 08/15/2018 ifrah gluconate mouth daily. 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 However, the narrative phrase printed from the coding software may appear abbreviated, or result in slightly different terminology. Coded By: KRISTIN DAY Date Saved: 07/04/2016 01:09 pm Source: [facility] [employer] Document Id: [id number] Miscellaneous - Tea Givens M.D. - 07/01/2016 1:52 PM CST From: TEA GIVENS MD To: [place] [facility] Nurse [place]; Sent: 07/01/2016 13:52:31 MANAGER NON PROFIT Call, His ultrasound shows diffuse fatty liver (hepatic steatosis). To prevent this from progressingto a more significant disease state, he should eat a lower carb diet. Source: [facility] [employer] Document Id: [id number] Electronically signed by Conversion, [facility] [employer] Machine Operator [id number] at 10/15/2016 1:01 AM CDT documented in this encounter Plan of Treatment Not on filedocumented as of this encounter Visit Diagnoses Not on filedocumented in this encounter Additional Health Concerns Assessment Noted Time PHQ-9 Depression Total Score: 2 03/08/2015 11:16 AM CS T documented as of this encounter
--- OUTSIDE RECORDS SUMMARY | 2021-12-17 09:49 | XMS_ITS | Encounter Summary ---
:1940 Author Organization [facility] Address [address] [place] [address] Care Team Providers Name Role Phone Unavailable Primary Care Provider Unavailable Encounter Details Date Type Department Care Team Description 05/22/2017 Abstract Department of Family Medicine, Provider, Historical [facility], in [place], [place] [address] [place] [address] Social History Tobacco Use Types Packs/Day [...]
--- OUTSIDE RECORDS SUMMARY | 2021-12-17 09:50 | XMS_ITS | Encounter Summary ---
:1940 Author Organization [facility] Address [address] [place] [address] Care Team Providers Name Role Phone Unavailable Primary Care Provider Unavailable Encounter Details Date Type Department Care Team Description 04/10/2008 - 04/11/2008 Hospital Encounter HX NO MAPPING Social History Tobacco Use Types Packs/Day Years Used Date Smoking Tobacco: Never Assessed Sex Assigned at Date Recorded Not on file documented as of this encounter Plan of Treatment Not on filedocumented as of this encounter Visit Diagnoses Not on filedocumented in this encounter
--- OUTSIDE RECORDS SUMMARY | 2021-12-17 09:50 | XMS_ITS | Encounter Summary ---
:1940 Author Organization [facility] Address [address] [place] [address] Care Team Providers Name Role Phone Unavailable Primary Care Provider Unavailable Encounter Details Date Type Department Care Team Description 03/10/2007 Hospital Encounter HX NO MAPPING Social History Tobacco Use Types Packs/Day Years Used Date Smoking Tobacco: Never Assessed Sex Assigned at Date Recorded Not on file documented as of this encounter Plan of Treatment Not on filedocumented as of this encounter Visit Diagnoses Not on filedocumented in this encounter
--- OUTSIDE RECORDS SUMMARY | 2021-12-17 09:50 | XMS_ITS | Encounter Summary ---
:1940 Author Organization [facility] Address [address] [place] [address] Care Team Providers Name Role Phone Unavailable Primary Care Provider Unavailable Encounter Details Date Type Department Care Team Description 02/16/2007 Hospital Encounter HX NO MAPPING Social History Tobacco Use Types Packs/Day Years Used Date Smoking Tobacco: Never Assessed Sex Assigned at Date Recorded Not on file documented as of this encounter Plan of Treatment Not on filedocumented as of this encounter Visit Diagnoses Not on filedocumented in this encounter
--- OUTSIDE RECORDS SUMMARY | 2021-12-17 09:50 | XMS_ITS | Encounter Summary ---
:1940 Author Organization [facility] Address [address] [place] [address] Care Team Providers Name Role Phone Unavailable Primary Care Provider Unavailable Encounter Details Date Type Department Care Team Description 02/24/2007 Hospital Encounter HX NO MAPPING Social History Tobacco Use Types Packs/Day Years Used Date Smoking Tobacco: Never Assessed Sex Assigned at Date Recorded Not on file documented as of this encounter Plan of Treatment Not on filedocumented as of this encounter Visit Diagnoses Not on filedocumented in this encounter
--- OUTSIDE RECORDS SUMMARY | 2021-12-17 09:50 | XMS_ITS | Encounter Summary ---
:1940 Author Organization [facility] Address [address] [place] [address] Care Team Providers Name Role Phone Unavailable Primary Care Provider Unavailable Encounter Details Date Type Department Care Team Description 06/23/2006 - Hospital Encounter HX [facility] Lorena Fiore M.D. 06/30/2006 [facility] [address] [phone] (Wo rk) Social History Tobacco Use Types Packs/Day Years Used Date Smoking Tobacco: Never Assessed Sex Assigned at Date Recorded Not on file documented as of this encounter Plan of Treatment Not on filedocumented as of this encounter Visit Diagnoses Not on filedocumented in this encounter
--- OUTSIDE RECORDS SUMMARY | 2021-12-17 09:50 | XMS_ITS | Encounter Summary ---
:1940 Author Organization [facility] Address [address] [place] [address] Care Team Providers Name Role Phone Unavailable Primary Care Provider Unavailable Encounter Details Date Type Department Care Team Description 09/09/2003 Hospital Encounter HX NO MAPPING Social History Tobacco Use Types Packs/Day Years Used Date Smoking Tobacco: Never Assessed Sex Assigned at Date Recorded Not on file documented as of this encounter Plan of Treatment Not on filedocumented as of this encounter Procedures Procedure Name Priority Date/Time Associated Diagnosis Comme nts HXGENERAL PATHOLOGY Routine 09/09/2003 3:43 PM Re sults for this REPORT CDT procedure are i n the results section. documented in this encounter Results Hx general Pathology Report (09/09/2003 3:43 PM CDT) Specimen Anatomical Collection Method Collection Time Receive d Time (Source) Location / / Volume Laterality 09/09/2003 3:43 PM 4 3:43 CDT PM CDT Narrative [facility] - 09/09/2003 3:43 PM CDT ?09/09/2003 General Biopsy ? ([id number]) ? Requested By: ??Giulia Gonzalez ??[id number] ?? Additional Physician: ??Raymundo hermosillo M.D. [id number] ? TISSUE DESCRIPTION: [id number] A1 ?? A. ??Sigmoid/Rectum, Colon biopsy: ??(5 pieces 0.1 - 0.5 cm. in diameter) ?DIAGNOSIS: ?? Colon, sigmoid and rectum, polyps, endo scopic biopsy: ??Fragments of hyperplastic polyps. ? 09/12/03 ??Shelly Mcnamara M.D. [phone] ? Procedure Note 07/26/2017 09/09/2003 General Biopsy ([id number]) Requested By: Marv Pryor M.D. [id number] Additional Physician: Raymundo uriostegui M.D. [id number] TISSUE DESCRIPTION: [id number] A1 A. Sigmoid/Rectum, Colon biopsy: (5 pie rashawn 0.1 - 0.5 cm. in diameter) DIAGNOSIS: Colon, sigmoid and rectum, polyps, endo scopic biopsy: Fragments of hyperplastic polyps. 09/12/03 Shelly Mcnamara M.D. [phone] Historical Provider LAB PATHOLOGY/CYTOLOGY ORDER VALDEZ Performing Organization Address City/State/ZIP Code Phon e Number [facility] - [address] [place], [place] [address] [facility] documented in this encounter Visit Diagnoses Not on filedocumented in this encounter
--- OUTSIDE RECORDS SUMMARY | 2021-12-17 09:50 | XMS_ITS | Encounter Summary ---
:1940 Author Organization [facility] Address [address] [place] [address] Care Team Providers Name Role Phone Unavailable Primary Care Provider Unavailable Encounter Details Date Type Department Care Team Description 11/07/2006 Hospital Encounter HX NO MAPPING Social History Tobacco Use Types Packs/Day Years Used Date Smoking Tobacco: Never Assessed Sex Assigned at Date Recorded Not on file documented as of this encounter Plan of Treatment Not on filedocumented as of this encounter Visit Diagnoses Not on filedocumented in this encounter
--- OUTSIDE RECORDS SUMMARY | 2021-12-17 09:50 | XMS_ITS | Encounter Summary ---
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 Pulse 68 12/20/2011 7:30 AM Value from [facility]. CDT Temperature - - Respiratory Rate 18 12/20/2011 12:00 Value from [facility] rtplus. PM CDT Oxygen Saturation - - Inhaled Oxygen - - Concentration Weight 66.6 kg (146 lb 13.2 12/20/2011 4:15 AM Value fr om [facility]. oz) CDT Height - - Body Mass Index 23.05 12/18/2011 7:09 PM CDT documented in this encounter Medications [...] Priority Date/Time Associated Comments Diagnosis DX CHEST PORTABLE 1 VIEW Routine 12/20/2011 4:33 Results for this AM CDT procedure are i n the results section. ELECTROLYTE (CHEM 4) Routine 12/20/2011 4:05 Resu lts for this PANEL, S/P AM CDT procedure are i n the results section. CREATINE KINASE (CK) MB Routine 12/20/2011 4:05 R esults for this ISOENZYME, S AM CDT procedure are i n the results section. CBC WITH DIFFERENTIAL, B Routine 12/20/2011 4:05 Results for this AM CDT procedure are i n the results section. TROPONIN T, 5TH GEN, P Routine 12/20/2011 4:05 Re sults for this AM CDT procedure are i n the results section. PHOSPHORUS (INORGANIC), Routine 12/20/2011 4:05 R esults for this S AM CDT procedure are i n the results section. MAGNESIUM, S Routine 12/20/2011 4:05 Results for this AM CDT procedure are i n the results section. ACTIVATED PARTIAL Routine 12/19/2011 3:33 Results for this THROMBOPLASTIN TIME PM CDT procedur e are in (APTT), P the results section. ACT, POCT, B Routine 12/19/2011 2:25 Results for this PM CDT procedure are i n the results section. ACT, POCT, B Routine 12/19/2011 1:54 Results for this PM CDT procedure are i n the results section. ACT, POCT, B Routine 12/19/2011 1:42 Results for this PM CDT procedure are i n the results section. CARDIAC CATHETERIZATION Routine 12/19/2011 1:11 PM CDT PROCEDURE AND SEDATION Routine 12/19/2011 12:36 ASSESSMENT PM CDT ACTIVATED PARTIAL Routine 12/19/2011 8:20 Results for this THROMBOPLASTIN TIME AM CDT procedur e are in (APTT), P the results section. ACTIVATED PARTIAL Routine 12/19/2011 1:05 Results for this THROMBOPLASTIN TIME AM CDT procedur e are in (APTT), P the results section. CBC WITH DIFFERENTIAL, B Routine 12/19/2011 1:05 Results for this AM CDT procedure are i n the results section. ELECTROLYTE (CHEM 4) Routine 12/19/2011 1:04 Resu lts for this PANEL, S/P AM CDT procedure are i n the results section. PHOSPHORUS (INORGANIC), Routine 12/19/2011 1:04 R esults for this S AM CDT procedure are i n the results section. MAGNESIUM, S Routine 12/19/2011 1:04 Results for this AM CDT procedure are i n the results section. DX CHEST PORTABLE 1 VIEW Routine 12/18/2011 7:31 Results for this PM CDT procedure are i n the results section. LIPID PANEL, S Routine 12/18/2011 7:25 Results fo r this PM CDT procedure are i n the results section. ELECTROLYTE (CHEM 4) Routine 12/18/2011 7:25 Resu lts for this PANEL, S/P PM CDT procedure are i n the results section. CARDIAC BIOMARKER PANEL, Routine 12/18/2011 7:25 Results for this S PM CDT procedure are i n the results section. ACTIVATED PARTIAL Routine 12/18/2011 7:25 Results for this THROMBOPLASTIN TIME PM CDT procedur e are in (APTT), P the results section. PROTHROMBIN TIME (PT), P Routine 12/18/2011 7:25 Results for this PM CDT procedure are i n the results section. CBC WITH DIFFERENTIAL, B Routine 12/18/2011 7:25 Results for this PM CDT procedure are i n the results section. PHOSPHORUS (INORGANIC), Routine 12/18/2011 7:25 R esults for this S PM CDT procedure are i n the results section. MAGNESIUM, S Routine 12/18/2011 7:25 Results for this PM CDT procedure are i n the results section. documented in this encounter Results DX Chest Portable 1 View (12/20/2011 4:33 AM CDT) Anatomical Region Laterality Modality Chest N/A Radiographic Imaging Specimen (Source) Anatomical Collection Method Collection Time Re ceived Time Location / / Volume Laterality 12/20/2011 4:33 AM CDT Narrative 12/20/2011 5:48 AM CDT 20-Dec-2011 04:33:00 ??Exam: Portable-Chest Indications: STEMI ORIGINAL REPORT - 20-Dec-2011 05:48:00 Chest; 1 view: Negative chest. Electronically signed by: ?? René Richards MD. ??[phone] 20-Dec-2011 05: 48 Procedure Note Carroll Richards M.D. - 08/02/2017Formatti ng of this note might be different from the original. 20-Dec-2011 04:33:00 Exam: Portable-Ches t Indications: STEMI ORIGINAL REPORT - 20-Dec-2011 05:48:00 Chest; 1 view: Negative chest. Electronically signed by: René Richards MD. [phone] 20-Dec-2011 05:48 Lissa Casey M.D. IMG DIAGNOSTIC IMAGING PROCE DURES Magnesium (12/20/2011 4:05 AM CDT) athologist Signature Magnesium, S 2.1 1.7 - 2.3 [facility] MG/DL [facility] Specimen Anatomical Collection Method Collection Time Receive d Time (Source) Location / / Volume Laterality 12/20/2011 4:05 AM 2 4:05 CDT AM CDT Historical Provider LAB BLOOD ADD-ON Performing Organization Address City/[facility]/ZIP Code Phon e Number [facility] LABORATORIES - [address] (ABNORMAL) Phosphorus Inorganic (12/20/2011 4:05 AM CDT) [facility] Method Time Signature Phosphorus 4.6 (H) 2.5 - 4.5 [facility] (Inorganic), S MG/DL [facility] Specimen Anatomical Collection Method Collection Time Receive d Time (Source) Location / / Volume Laterality 12/20/2011 4:05 AM 2 4:05 CDT AM CDT Historical Provider LAB BLOOD ADD-ON Performing Organization Address City/[facility]/ZIP [facility] Phon e Number [facility]IES - [address] [place] [address] [facility] CBC with Differential (12/20/2011 4:05 AM CDT) [facility] Method Time Signature Hemoglobin 14.4 13.5 - [facility] 17.5 G/DL [facility] Hematocrit 43.3 38.8 - [facility] 50.0 % [facility] RBC Distrib Width 13.6 11.8 - [facility] 15.6 % LABORATORIES - [facility] Platelet Count 202 150 - 450 [facility] X10(9)/L LABORATORIES - [facility] Lymphocytes 2.33 0.90 - [facility] 2.90 LABORATORIES - X10(9)/L [facility] Monocytes 0.52 0.30 - [facility] 0.90 LABORATORIES - X10(9)/L [facility] Erythrocytes 4.75 4.32 - [facility] 5.72 LABORATORIES - X10(12)/L [facility] MCV 91.2 81.2 - [facility] 95.1 [place] LABORATORIES - [facility] Leukocytes 7.5 3.5 - [facility] 10.5 LABORATORIES - X10(9)/L [facility] Neutrophils 4.40 1.70 - [facility] 7.00 LABORATORIES - X10(9)/L [facility] Eosinophils 0.18 0.05 - [facility] 0.50 LABORATORIES - X10(9)/L [facility] Basophils 0.02 0.00 - [facility] 0.30 LABORATORIES - X10(9)/L [facility] Specimen Anatomical Collection Method Collection Time Receive d Time (Source) Location / / Volume Laterality 12/20/2011 4:05 AM 2 4:05 CDT AM CDT Historical Provider LAB BLOOD ADD-ON Performing Organization Address City/State/[facility] Code Phon e Number [facility]IES - [address] [place] [phone] [facility] (ABNORMAL) Troponin T (12/20/2011 4:05 AM CDT) Patholo gist Method Time Signature Troponin T, S 0.34 (H) <0.01 [facility] NG/ML LABORATORIES [facility] Specimen Anatomical Collection Method Collection Time Receive d Time (Source) Location / / Volume Laterality 12/20/2011 4:05 AM 2 4:05 CDT AM CDT Historical Provider LAB BLOOD ADD-ON Performing Organization Address City/[facility] Code Phon e Number [facility]ATORIES - [address] [place], [place] [address] [facility] Electrolyte (Chem 4) Panel (12/20/2011 4:05 AM CDT) P athologist Signature Chloride, S 104 100 - 108 [facility] MMOL/L LABORATORIES - [facility] HX 27 22 - 29 [facility] Bicarbonate, MMOL/L LABORATORIES - P/S [facility] Sodium, S 141 135 - 145 [facility] MMOL/L LABORATORIES - [facility] Potassium, S 4.2 3.6 - 5.2 [facility] MMOL/L LABORATORIES - [facility] Creatinine, S 1.2 0.8 - 1.3 [facility] MG/DL LABORATORIES - [facility] BUN (Blood 16 8 - 24 [facility] Urea MG/DL LABORATORIES - Nitrogen), S [facility] Anion Gap 10 7 - 15 [facility] LABORATORIES - [facility] Glucose, S 96 70 - 140 [facility] MG/DL LABORATORIES - [facility] Specimen Anatomical Collection Method Collection Time Receive d Time (Source) Location / / Volume Laterality 12/20/2011 4:05 AM 2 4:05 CDT AM CDT Historical Provider LAB BLOOD ADD-ON Performing Organization Address City/[facility]/ZIP Code Phon e Number [facility]IES - [address] [place] [phone] [facility] (ABNORMAL) Creatine Kinase (CK) MB Isoenzyme (12/20/2011 4:05 AM CDT) Patholo gist Method Time Signature Creatine 6.9 (H) <6.7 NG/ML [facility] Kinase(CK) MB LABORATORIES - Isoenzyme, S [facility] Specimen Anatomical Collection Method Collection Time Receive d Time (Source) Location / / Volume Laterality 12/20/2011 4:05 AM 2 4:05 CDT AM CDT Historical Provider LAB BLOOD ADD-ON Performing Organization Address City/[facility]/ZIP Code Phon e Number [facility]IES - [address] [place] [address] [facility] (ABNORMAL) APTT (Activated Partial Thromboplastin Time) (12/19/2011 3:33 PM CDT) P athologist Signature APTT, P >240 (>) 28 - 38 [facility] SEC LABORATORIES - [facility] Specimen Anatomical Collection Method Collection Time Receive d Time (Source) Location / / Volume Laterality 12/19/2011 3:33 PM 2 3:33 CDT PM CDT Lissa Casey M.D. LAB BLOOD ADD-ON Performing Organization Address City/[facility]/ZIP Code Phon e Number [facility]IES - [address] [place], [place] [address] [facility] (ABNORMAL) ACT (Activated Clotting Time), POCT (12/19/2011 2:25 PM CDT) [facility] Method Time Signature Activated 266 (H) 84 - 139 [facility] Clotting Time, SEC LABORATORIES - POCT [facility] Specimen Anatomical Collection Method Collection Time Receive d Time (Source) Location / / Volume Laterality 12/19/2011 2:25 PM 2 2:25 CDT PM CDT Historical Provider LAB POCT ORDERABLES - DEVICE Performing Organization Address City/[facility]/ZIP Code Phon e Number [facility]IES - [address] [place], [place] [address] [facility] (ABNORMAL) ACT (Activated Clotting Time), POCT (12/19/2011 1:54 PM CDT) [facility] Method Time Signature Activated 227 (H) 84 - 139 [facility] Clotting Time, SEC LABORATORIES - POCT [facility] Specimen Anatomical Collection Method Collection Time Receive d Time (Source) Location / / Volume Laterality 12/19/2011 1:54 PM 2 1:54 CDT PM CDT Historical Provider LAB POCT ORDERABLES - DEVICE Performing Organization Address City/[facility]/ZIP Code Phon e Number [facility]IES - [address] [place] [address] [facility] ACT (Activated Clotting Time), POCT (12/19/2011 1:42 PM CDT) P athologist Signature Activated 138 84 - 139 [facility] Clotting Time, SEC LABORATORIES - POCT [facility] Specimen Anatomical Collection Method Collection Time Receive d Time (Source) Location / / Volume Laterality 12/19/2011 1:42 PM 2 1:42 CDT PM CDT Historical Provider LAB POCT ORDERABLES - DEVICE Performing Organization Address City/[facility]/ZIP Code Phon e Number [facility]IES - [address] [place] [address] [facility] Cardiac Catheterization (12/19/2011 1:11 PM CDT) Anatomical Region Laterality Modality Other Specimen (Source) Anatomical Collection Method Collection Time Re ceived Time Location / / Volume Laterality 12/19/2011 1:11 PM CDT Elliot Ocampo M.D. CV CARDIAC CATH PROCEDURES Procedure and Sedation Assessment (12/19/2011 12:36 PM CDT) Anatomical Region Laterality Modality Cardiac Electrophysi ology Specimen (Source) Anatomical Collection Method Collection Time Re ceived Time Location / / Volume Laterality 12/19/2011 12:36 PM CDT Elliot Ocampo M.D. CV ELECTROPHYSIOLOGY PROCS (ABNORMAL) APTT (Activated Partial Thromboplastin Time) (12/19/2011 8:20 AM CDT) P athologist Signature APTT, P 93 (H) 28 - 38 SEC [facility] Specimen Anatomical Collection Method Collection Time Receive d Time (Source) Location / / Volume Laterality 12/19/2011 8:20 AM 2 8:20 CDT AM CDT Historical Provider LAB BLOOD ADD-ON Performing Organization Address City/[facility]/ZIP Code Phon e Number [facility]IES - [address] [place] [address] [facility] (ABNORMAL) APTT (Activated Partial Thromboplastin Time) (12/19/2011 1:05 AM CDT) P athologist Signature APTT, P 50 (H) 28 - 38 [facility] Specimen Anatomical Collection Method Collection Time Receive d Time (Source) Location / / Volume Laterality 12/19/2011 1:05 AM 2 1:05 CDT AM CDT Tahmina Dong M.D. LAB BLOOD ADD-ON Performing Organization Address City/[facility] Phon e Number [facility]IES - [address] [place] [address] [facility] CBC with Differential (12/19/2011 1:05 AM CDT) Patholo gist Method Time Signature Hemoglobin 14.0 13.5 - [facility] 17.5 G/DL [facility] Hematocrit 40.5 38.8 - [facility] 50.0 % [facility] RBC Distrib Width 13.2 11.8 - [facility] 15.6 % [facility] Platelet Count 204 150 - 450 [facility] X10(9)/L [facility] Leukocytes 8.5 3.5 - [facility] 10.5 LABORATORIES - X10(9)/L [facility] Neutrophils 6.11 1.70 - [facility] 7.00 LABORATORIES - X10(9)/L [facility] Lymphocytes 1.84 0.90 - [facility] 2.90 LABORATORIES - X10(9)/L [facility] Monocytes 0.45 0.30 - [facility] 0.90 LABORATORIES - X10(9)/L [facility] Eosinophils 0.09 0.05 - [facility] 0.50 LABORATORIES - X10(9)/L [facility] Basophils 0.01 0.00 - [facility] 0.30 LABORATORIES - X10(9)/L [facility] Erythrocytes 4.43 4.32 - [facility] 5.72 LABORATORIES - X10(12)/L [facility] MCV 91.4 81.2 - [facility] 95.1 [place] LABORATORIES - [facility] Specimen Anatomical Collection Method Collection Time Receive d Time (Source) Location / / Volume Laterality 12/19/2011 1:05 AM 2 1:05 CDT AM CDT Tahmina Dong M.D. LAB BLOOD ADD-ON Performing Organization Address City/State/[facility] Code Phon e Number [facility]IES - [address] [place], [place] [address] [facility] Electrolyte (Chem 4) Panel (12/19/2011 1:04 AM CDT) P athologist Signature Sodium, S 143 135 - 145 [facility] MMOL/L LABORATORIES - [facility] Potassium, S 4.1 3.6 - 5.2 [facility] MMOL/L LABORATORIES - [facility] Creatinine, S 0.9 0.8 - 1.3 [facility] MG/DL LABORATORIES - [facility] BUN (Blood 16 8 - 24 [facility] Urea MG/DL LABORATORIES - Nitrogen), S [facility] Chloride, S 108 100 - 108 [facility] MMOL/L LABORATORIES - [facility] HX 24 22 - 29 [facility] Bicarbonate, MMOL/L LABORATORIES - P/S [facility] Anion Gap 11 7 - 15 [facility] LABORATORIES - [facility] Glucose, S 95 70 - 140 [facility] MG/DL LABORATORIES - [facility] Specimen Anatomical Collection Method Collection Time Receive d Time (Source) Location / / Volume Laterality 12/19/2011 1:04 AM 2 1:04 CDT AM CDT Tahmina Dong M.D. LAB BLOOD ADD-ON Performing Organization Address City/State/ZIP Code Phon e Number [facility]ATORIES - [address] [place] [address] [facility] (ABNORMAL) Magnesium (12/19/2011 1:04 AM CDT) Analysis Performed At Patho logist Time Signature Magnesium, S 2.4 (H) 1.7 - 2.3 [facility] MG/DL LABORATORIES [facility] Specimen Anatomical Collection Method Collection Time Receive d Time (Source) Location / / Volume Laterality 12/19/2011 1:04 AM 2 1:04 CDT AM CDT Tahmina Dong M.D. LAB BLOOD ADD-ON Performing Organization Address City/[facility]/ZIP Code Phon e Number [facility]IES - [address] [place] [address] [facility] Phosphorus Inorganic (12/19/2011 1:04 AM CDT) Analysis Performed At Patho logis Time Signature Phosphorus 4.2 2.5 - 4.5 [facility] (Inorganic), S MG/DL [facility] Specimen Anatomical Collection Method Collection Time Receive d Time (Source) Location / / Volume Laterality 12/19/2011 1:04 AM 2 1:04 CDT AM CDT Tahmina Dong M.D. LAB BLOOD ADD-ON Performing Organization Address City/State/ZIP Code Phon e Number [facility]IES - [address] [place] [address] [facility] DX Chest Portable 1 View (12/18/2011 7:31 PM CDT) Anatomical Region Laterality Modality Chest N/A Radiographic Imaging Specimen (Source) Anatomical Collection Method Collection Time Re ceived Time Location / / Volume Laterality 12/18/2011 7:31 PM CDT Narrative 12/18/2011 8:42 PM CDT 18-Dec-2011 19:31:00 ??Exam: Portable-Chest Indications: STEMI ORIGINAL REPORT - 18-Dec-2011 20:27:00 Chest; 1 view: No pulmonary infiltrates or pleural effu sions. Normal cardiac size. Calcified tortuous aorta. Electronically signed by: ?? Willei Laird MD [phone] 18-Dec-2011 20: 27 I have reviewed the films/images and agr ee with the above interpretation. Electronically signed by: ?? Maged Amato MD [phone] 18-Dec-2011 20:4 2 Procedure Note Maged Amato M.D. - 08/02/2017Forma tting of this note might be different from the original. 18-Dec-2011 19:31:00 Exam: Portable-Ches t Indications: STEMI ORIGINAL REPORT - 18-Dec-2011 20:27:00 Chest; 1 view: No pulmonary infiltrates or pleural effu sions. Normal cardiac size. Calcified tortuous aorta. Electronically signed by: Willie Laird MD [phone] 18-Dec-2011 20: 27 I have reviewed the films/images and agr ee with the above interpretation. Electronically signed by: Maged Amato MD [phone] 18-Dec-2011 20:4 2 Lissa Casey M.D. IMG DIAGNOSTIC IMAGING PROCE DURES (ABNORMAL) Cardiac Biomarker Panel (12/18/2011 7:25 PM CDT) [facility] Method Time Signature Delta Interp Sig Delta [facility] Comment: Significant delta observed. Troponin Delta 0.38 NG/ML [facility] [place] Troponin T 6H, S 0.52 (H) <0.01 NG/ML [facility] Delta Interp Sig Delta [facility] Comment: Significant delta observed. Troponin T, S 0.09 (H) <0.01 NG/ML [facility] Troponin T 3H, S 0.47 (H) <0.01 NG/ML [facility] Troponin Delta 0.43 NG/ML [facility] [place] Specimen Anatomical Collection Method Collection Time Receive d Time (Source) Location / / Volume Laterality 12/18/2011 7:25 PM 2 7:25 CDT PM CDT Tahmina Dong M.D. LAB BLOOD ADD-ON Performing Organization Address City/State/ZIP Code Phon e Number [facility] - [address] [place], [place] [address] [facility] PT (Prothrombin Time) with INR (12/18/2011 7:25 PM CDT) [facility] gist Method Time Signature Prothrombin 11.0 9.5 - 13.8 [facility] Time, P SEC LABORATORIES - [facility] INR 1.0 0.8 - 1.2 [facility] Specimen Anatomical Collection Method Collection Time Receive d Time (Source) Location / / Volume Laterality 12/18/2011 7:25 PM 2 7:25 CDT PM CDT Tahmina Dong M.D. LAB BLOOD ADD-ON Performing Organization Address City/[facility] Phon e Number [facility]ATORIES - [address] [place] [address] [facility] (ABNORMAL) APTT (Activated Partial Thromboplastin Time) (12/18/2011 7:25 PM CDT) athologist [facility] APTT, P 78 (H) 28 - 38 SEC [facility] Specimen Anatomical Collection Method Collection Time Receive d Time (Source) Location / / Volume Laterality 12/18/2011 7:25 PM 2 7:25 CDT PM CDT Tahmina Dong M.D. LAB BLOOD ADD-ON Performing Organization Address City/State/ZIP Code Phon e Number [facility]IES - [address] [place] [address] [facility] Electrolyte (Chem 4) Panel (12/18/2011 7:25 PM CDT) athologist [facility] Chloride, S 106 100 - 108 [facility] MMOL/L LABORATORIES [facility] BUN (Blood 16 8 - 24 [facility] Urea MG/DL LABORATORIES - Nitrogen), S [facility] Glucose, S 93 70 - 140 [facility] MG/DL LABORATORIES [facility] Sodium, P 142 135 - 145 [facility] MMOL/L LABORATORIES - [facility] Potassium, P 4.1 3.6 - 5.2 [facility] MMOL/L LABORATORIES - [facility] HX 29 22 - 29 [facility] Bicarbonate, MMOL/L LABORATORIES - P/S [facility] Creatinine, S 1.0 0.8 - 1.3 [facility] MG/DL [facility] Specimen Anatomical Collection Method Collection Time Receive d Time (Source) Location / / Volume Laterality 12/18/2011 7:25 PM 2 7:25 CDT PM CDT Tahmina Dong M.D. LAB BLOOD ADD-ON Performing Organization Address City/State/ZIP Code Phon e Number [facility]ATORIES - [address] [place] [address] [facility] Magnesium (12/18/2011 7:25 PM CDT) P athologist Signature Magnesium, S 2.3 1.7 - 2.3 [facility] [facility] MG/DL [facility] Specimen Anatomical Collection Method Collection Time Receive d Time (Source) Location / / Volume Laterality 12/18/2011 7:25 PM 2 7:25 CDT PM CDT Tahmina Dong M.D. LAB BLOOD ADD-ON Performing Organization Address City/State/ZIP Code Phon e Number [facility] - [address] [place] [phone] [facility] Phosphorus Inorganic (12/18/2011 7:25 PM CDT) Analysis Performed At Patho logist Time Signature Phosphorus 2.6 2.5 - 4.5 [facility] (Inorganic), S MG/DL [facility] Specimen Anatomical Collection Method Collection Time Receive d Time (Source) Location / / Volume Laterality 12/18/2011 7:25 PM 2 7:25 CDT PM CDT Tahmina Dong M.D. LAB BLOOD ADD-ON Performing Organization Address City/[facility]/ZIP Code Phon e Number [facility] - [address] [place] [phone] [facility] Lipid Panel (12/18/2011 7:25 PM CDT) Patholo gist Method Time Signature Cholesterol, 209 SeeComment [facility] Total MG/DL [facility] Comment: Reference Range: ? NCEP guidelines ? (ages 18y and up) ? Desirable: <200 ? Borderline high: 200-239 ? High: > or =240 ? Triglycerides 51 SeeComment MG/DL [facility] Comment: Reference Range: ? NCEP guidelines ? (ages 18y and up) ? Normal: <150 ? Borderline high: 150-199 ? High: 200-499 ? Very high: > or =500 ? Cholesterol, Non-HDL, 158 SeeComment MG/DL [facility] - Calculated [facility] Comment: Reference Range: ? NCEP guidelines ? Desirable: <130 ? Borderline high: 130-159 ? High: 160-189 ? Very high: > or =190 ? Cholesterol, HDL, S 51 SeeComment MG/DL [facility] Comment: Reference Range: ? NCEP guidelines ? (ages 18y and up) ? Low: <40 ? Normal: 40-59 ? High : > or =60 ? Calculated LDL 148 SeeComment MG/DL [facility] Comment: Reference Range: ? NCEP guidelines ? (ages 18y and up) ? Optimal: <100 ? Near Optimal: 100-129 ? Borderline high: 130-159 ? High: 160-189 ? Very high: > or =190 ? Specimen Anatomical Collection Method Collection Time Receive d Time (Source) Location / / Volume Laterality 12/18/2011 7:25 PM 2 7:25 CDT PM CDT Tahmina Dong M.D. LAB BLOOD ADD-ON Performing Organization Address City/State/ZIP Code Phon e Number [facility] - [address] [place], [place] [address] [facility] (ABNORMAL) CBC with Differential (12/18/2011 7:25 PM CDT) [facility] gist Method Time Signature Hemoglobin 14.6 13.5 - [facility] 17.5 G/DL LABORATORIES - [facility] Hematocrit 43.7 38.8 - [facility] 50.0 % LABORATORIES - [facility] RBC Distrib 13.3 11.8 - [facility] Width 15.6 % LABORATORIES - [facility] Platelet Count 205 150 - 450 [facility] X10(9)/L [facility]ORATORIES - [facility] Leukocytes 13.7 (H) 3.5 - [facility] 10.5 LABORATORIES - X10(9)/L [facility] Neutrophils 12.10 (H) 1.70 - [facility] 7.00 LABORATORIES - X10(9)/L [facility] Lymphocytes 0.91 0.90 - [facility] 2.90 LABORATORIES - X10(9)/L [facility] Monocytes 0.59 0.30 - [facility] 0.90 LABORATORIES - X10(9)/L [facility] Eosinophils 0.08 0.05 - [facility] 0.50 LABORATORIES - X10(9)/L [facility] Basophils 0.02 0.00 - [facility] 0.30 LABORATORIES - X10(9)/L [facility] Erythrocytes 4.79 4.32 - [facility] 5.72 LABORATORIES - X10(12)/L [facility] MCV 91.2 81.2 - [facility] 95.1 [place] LABORATORIES - [facility] Specimen Anatomical Collection Method Collection Time Receive d Time (Source) Location / / Volume Laterality 12/18/2011 7:25 PM 2 7:25 CDT PM CDT Tahmina Dong M.D. LAB BLOOD ADD-ON Performing Organization Address City/State/ZIP Code Phon e Number [facility] - [address] [place], [place] [address] [facility] documented in this encounter Visit Diagnoses Not on filedocumented in this encounter
--- OUTSIDE RECORDS SUMMARY | 2021-12-17 09:50 | XMS_ITS | Encounter Summary ---
:1940 Author Organization [facility] Address [address] [place] [address] Care Team Providers Name Role Phone Unavailable Primary Care Provider Unavailable Encounter Details Date Type Department Care Team Description 09/27/2010 Hospital Encounter HX [facility] Alfonso Cervantes P.A.-C. [address] [place] [phone] (Wo rk) Social History Tobacco Use Types [...] documented as of this encounter Progress Notes Ana Cervantes P.A.-C. - 09/27/2010 12:00 AM CDT [id number] CHIEF COMPLAINT/REASON FOR VISIT Medication refill. HISTORY OF PRESENT ILLNESS Obey is a pleasant 70-year-old male who comes in for a refill of his medication. He currently takes simvastatin 80 mg daily. He has had hyperlipidemia for years. He has a history of a stroke and his lipids have been marginally controlled. He had been on Zetia for a period of time but has quit taking it over the last couple months for unknown reasons. He also has some esophageal reflux and takes Prilosec on a regular basis. He takes a baby aspirin daily. In general he says he has been feeling well. He has no real concerns today other than he would like to make sure his lipids are well controlled. He says he has a very strong family history of hyperlipidemia. He does not think his ever would be able to be as low as 70 regarding his LDL. I reviewed his previous medical problems and medication list in the EMR. SYSTEMS REVIEW I performed a complete review of systems today. Pertinent positives: He does wear glasses. He has a history of a left rotator cuff tear that has healed fairly well on its own. He does not have as much strength in his left arm as he would like but in general he says he is able to get by okay. He had a colonoscopy last year with a polyp noted and is at higher risk. This should be repeated in [address] Almaguer's recent reminder. He also wears hearing aids. The remainder of the review of systems is negative. SOCIAL HISTORY He drinks alcohol socially. He does not smoke cigarettes. His diet is fairly good. He tries to eat many vegetables in his diet. He tries to avoid red meat. He says he eats it about once or twice a week. Exercise level: He still is an active man for 70 years old. 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 FAMILY HISTORY His father in his seventies and his mother in her nineties. No premature history of coronary artery disease in his family although he did have a stroke a few years back so it is important that we keep good control of his lipids. VITAL SIGNS Noted in the electronic medical record. PHYSICAL EXAM AREA EXAM TEXT GENERAL He appears in no acute distress. EYES Equal, round and reactive to light. His extraocular movements are intact. ENT TMs: Nonerythematous. Throat: No erythema. LYMPH NODES Neck: No lymphadenopathy. THYROID No thyroid masses. PERIPHERAL Carotis pulses palpable at 4/4. No bruits auscultated. He VESSELS does have a scar over his left carotid artery from his previous endarterectomy. His radial pulses are palpable and symmetrical at 4/4. His radial and femoral pulses are symmetrical as well HEART Regular rate and rhythm, no murmurs. LUNGS Clear to auscultation. ABDOMEN Positive bowel sounds and is soft and nontender to palpation. PELVIS RECTUM Rectal exam was done. He does have an external hemorrhoid present that is not symptomatic. PROSTATE Prostate was smooth and symmetrical with no masses or asymmetry appreciated. GENITALIA The penis is uncircumcised. Testicles are descended. No masses appreciated. No inguinal hernia is noted. EXTREMITIES His deep tendon reflexes are present at 2+/4 in the patellar reflex. He has no notable lower extremity swelling. IMPRESSION/REPORT/PLAN 1. Hyperlipidemia. Plan: At this time we will repeat his fasting lipids and we will also check a metabolic profile which will check his liver functions as well since he has been on the simvastatin. I will call him with these results but likely he needs to start his Zetia because it had not been optimally controlled previously. Hopefully, we will be able to get better control with the Zetia on board. He has had a max dose of the simvastatin at this time. I will call him when I get these results back. 2. History of colon polyps. Plan: He has not had any problems with bleeding. We will check a baseline CBC today. 3. Health maintenance. Plan: Will check a PSA for screening for prostate cancer. He has not had this done for quite a few years. I did stress the importance of him maintaining an active lifestyle and eating a healthy diet. This will help with his lipids as well as his general well-being. He is in agreement with this plan and will work on this. 4. Esophageal reflux. Plan: This is very well controlled with the Prilosec. I refilled this for a year. If he has any questions or problems he will let us know. Otherwise, I will notify him when I get the results of his labs back. MICHAEL/kln Signed [facility] Electronically Signed By: ANA CERVANTES PA-C On: 10/03/2010 09:03 AM Source: [facility] MHSDOLBEYNONRADSYS Document Id: [id number] documented in this encounter Miscellaneous Notes Miscellaneous - Ana Cervantes P.A.-C. - 09/27/2010 11:28 AM CDT Ambulatory Vitals Height Weight Ambulatory Vitals Height Weight Entered On: 09/27/2010 11:29 CDT Performed On: 09/27/2010 11:28 CDT by ANA CERVANTES PA-C Vitals/Ht/Wt Systolic Blood Pressure: 117mmHg Diastolic Blood Pressure: 72mmHg NIBP Mean: 87mmHg ANA CERVANTES PA-C - 09/27/2010 11:28 CDT Source: [facility] Document Id: [id number] CDT!5 Miscellaneous - Conversion, Historical Provider Ser - 09/27/2010 8:31 AM CDT Adult Network Admin Intake/History Adult Network Admin Intake/History Entered On: 09/27/2010 8:33 CDT Performed On: 09/27/2010 8:31 CDT by SNOW COMBS Intake Chief Complaint: med check Temperature Core: 36.6C(Converted to: 97.9DegF) Peripheral Pulse Rate: 52/min (LOW) Respiratory Rate: 16/min BP Location: Left upper extremity Height: 169.30cm(Converted to: 5ft 7in, 66.65in) Actual Weight: 66.700kg(Converted to: 147lb 1oz) Weight Source: Standing scale Dosing Weight Clinic: 66.70kg Clinic BSA: 1.77 Body Mass Index: 23.27kg/m2 SNOW COMBS - 09/27/2010 8:31 CDT Subjective Pain Symptoms: No SNOW COMBS - 09/27/2010 8:31 CDT Dependent Habits Tobacco Use/Currently Using: No SNOW COMBS - 09/27/2010 8:31 CDT Tobacco Use Grid Other Tobacco Frequency: no SNOW COMBS - 09/27/2010 8:31 CDT Caffeine Use Grid Caffeine Use: Current Type: Coffee Frequency: Daily SNOW COMBS S - 09/27/2010 8:31 CDT Allergy Allergies (Active) NKA Estimated Onset Date: Unspecified ; Created By: TIEN ELLIS; Reaction Status: Active ; Category: Drug ; Substance: NKA ; Type: Allergy ; Updated By: TIEN ELLIS; Reviewed Date: 01/09/2010 14:01 CDT [facility] Document Id: [id number] CDT!25 documented in this encounter Plan of Treatment Not on filedocumented as of this encounter Visit Diagnoses Not on filedocumented in this encounter
--- OUTSIDE RECORDS SUMMARY | 2021-12-17 09:50 | XMS_ITS | Encounter Summary ---
:1940 Author Organization [facility] Address [address] [place] [address] Care Team Providers Name Role Phone Unavailable Primary Care Provider Unavailable Encounter Details Date Type Department Care Team Description 01/09/2010 Hospital Encounter HX [facility] Delbert Almaguer M.D. [address] [place], [place] [phone] (Wo rk) Social History Tobacco Use Types Packs/Day Years Used Date Smoking Tobacco: Never Assessed Sex Assigned at Date Recorded Not on file documented as of this encounter Medications at Time of Discharge Medication Sig Dispensed Refills Start Date End Date CALCIUM CARB/VIT Take 1 tablet by 0 01/09/2010 D3/MINERALS mouth daily. (CALCIUM-VITAMIN D ORAL) documented as of this encounter Progress Notes Tj Almaguer M.D. - 01/09/2010 12:00 AM CDT [id number] IMPRESSION / REPORT / PLAN Cerumen impaction with ear irrigation revealing clear canals, disequilibrium possibly related to an otolith. Recommendation ear wash and recheck as needed. He will check his pulse and blood pressure if he has such an occurrence and note if it's a tumbling or true vertigo sensation or nearly a swimming sensation. Colonoscopy update in view of his past polyposis coli and diverticulosis. CHIEF COMPLAINT / REASON FOR VISIT Difficulty hearing with history of some hearing loss and wondering if he has wax in his ears. He also had a period of disequilibrium. HISTORY OF PRESENT ILLNESS This white gentleman who does wear a hearing aid on the right has noticed some decreased hearing ability and wonders if he has wax in his ears. He has had this on occasion in the past. He has had no pain or discharge. The other issue is that on Friday, he was sitting and got up suddenly. He had a sensation of instability and can't describe a particular direction of spinning or tumbling of the room. He sat back down and started to feel somewhat better. He felt that he [facility] and so he did that and felt minimally nauseated but had no fever and no vomiting. There was no change in his speech or loss of strength or sensation. He was somewhat worried as he has had a past TIA and left carotid endarterectomy. He did go take his blood pressure which was 120/70 and his pulse was 68. He did not take those immediately and he noticed no palpitation. He has had no melena or hematochezia. No fluttering in his chest and no dyspnea. No pain. He didn't take any medications and since then has felt fine. CURRENT MEDICATIONS Post-visit medication reconciliation Reviewed per chart 1. Calcium with vitamin D one daily 2. Aspirin 81 mg one daily 3. Fish oil one PO b.i.d. 4. Zetia 10 mg daily 5. Zocor 80 mg daily 6. Prilosec 20 mg daily ALLERGIES Reviewed per chart None SYSTEMS REVIEW General: Stable health. Normal sleep and appetite. No fevers, chills or fatigue. Eyes: No visual change. He will be going for an eye exam soon. ENT: See HPI. . Respiratory: no nausea, vomiting or diarrhea. Cardiovascular: No chest pain, pressure or heaviness. No edema. Musculoskeletal: fractured vertebrae, cervical and since been stabilized and doing well. GI: no nausea, vomiting or diarrhea. : No dysuria, frequency or flank pain or hematuria. Hemato/endocrine: Hypercholesterolemia. Neuro: no seizures, tremors or headaches. See HPI. PAST MEDICAL / SURGICAL HISTORY Reviewed per chart 1. Arthralgia 2. Basal cell cancer of the face 3. Carpal tunnel syndrome 4. Elevated blood pressure 5. Elevated liver test 6. Fracture thoracic vertebral bodies 7. Hyperlipidemia 8. Osteoporosis 9. Polymyalgia rheumatica 10. TIA 11. Past syncope 12. Vitamin D deficiency Surgical history: Colonoscopy with polyps 09/05, endarterectomy 08/21/1999, carpal tunnel release 10/17/06 and arthrodesis of the left wrist 10/17/74 PREVENTIVE SERVICES He is due for a colonoscopy and that is set up today. I gave him a movie prep for that and he would like that at the end of January as he is going fishing in the next few days. Tetanus: 08/06 Pneumovax: 06/10/06 Lipids: 03/01/09 Flu: 2006 Tobacco: No Depression: No Asthma: No SOCIAL HISTORY Reviewed per chart No smoke or alcohol. He is and has four children. 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 FAMILY HISTORY Reviewed per chart No cancer, diabetes, or hypertension. Mother and maternal grandmother with stroke. Paternal grandmother with hypercholesterolemia. VITAL SIGNS DATE/TIME 01/09/2010 WEIGHT 67 kg TEMPERATURE 36.6 degreesC RESP RATE 60 / min PULSE 16 SYSTOLIC 118 DIASTOLIC 70 PHYSICAL EXAM AREA EXAM TEXT GENERAL Alert, cooperative, pleasant. Appearing non-distressed. SKIN No rash, bruising, irritation or erythema. HEAD Normal in contour. No masses or tenderness. Corrected lens worn. EYES Bright and well hydrated. No discharge. ENT Nasal passages are clear. Voice is not hyponasal. Nasal mucosa normal. Pharynx is adequately hydrated. Teeth and tongue are normal. Swallowing appears easy. Both ears have significant cerumen. Following irrigation they were entirely clear. TMs, canals and pinnae are normal. Decreased hearing bilaterally, right worse than left by gross testing. No tonsillar erythema or exudate. LYMPH NODES No inguinal ,axillary, supraclavicular or cervical adenopathy. THYROID Midline, normal size. No masses or tenderness. PERIPHERAL Normal upper extremity pulses, capillary fill and color normal. VESSELS Carotids good upstroke without bruits. Scar left carotid endarterectomy. HEART Regular rate and rhythm. No murmurs, rubs or gallop. LUNGS Clear. No wheezes, rales or rhonchi. No rubs or retractions. ABDOMEN Soft. No masses, tenderness or hepatosplenomegaly. Bowel sounds are normal. No suprapubic tenderness. SPINE No local or CVA tenderness. Normal mobility. No deviation. JOINTS No swelling, warmth or tenderness. Full range of motion. EXTREMITIES No clubbing or edema. Normal contour and muscle mass. GAIT Unremarkable. Non antalgic. MENTAL Normal insight, orientation and affect. Normal eye contact. NEURO Cranial nerves II through XII intact. Deep tendon reflexes in upper and lower extremities symmetric and physiologic. Sensory strength about both shoulder, elbows, hips and knees and ankles are normal. Romberg is negative. Sensory and motor testing normal throughout. PKJ/cmt Signed Tj Almaguer M.D. Family Medicine Electronically Signed By:TJ ALMAGUER MD On 01/15/2010 08:32 AM Source: [facility] MHSDOLBEYNONRADSYS Document Id: [id number] documented in this encounter Nursing Notes Conversion, Historical Provider Ser - 01/11/2010 11:50 AM CDT Pt is scheduled for a colonoscopy on January 31 at 815am at [address] A message was left for the pt to call clinic for information Electronically Signed By:TIEN ELLIS On 01/11/2010 11:51 am Source: [facility] aitainment Document Id: [id number] documented in this encounter Miscellaneous Notes Miscellaneous - Tj Almaguer M.D. - 01/09/2010 2:40 PM CDT General Message From: TJ ALMAGUER MD Sent: 01/09/2010 14:40:41 CDT Subject: General Message Please schedule followup colonoscopy, history polyps X 2 in 2003. [place]. Source: [facility] POWERCHART Document Id: [id number] Electronically signed by Conversion, [facility] Psychological Operations Specialist [id number] at 10/07/2016 1:31 AM CDT Miscellaneous - Conversion, Historical Provider Ser - 01/09/2010 1:57 PM CDT Adult Municipal Clerk Intake/History Adult Municipal Clerk Intake/History Entered On: 01/09/2010 14:00 CDT Performed On: 01/09/2010 13:57 CDT by TIEN ELLIS Intake Chief Complaint: check ears, was dizzy on friday Temperature Core: 36.6DegC(Converted to: 97.9DegF) Peripheral Pulse Rate: 60bpm Respiratory Rate: 16br/min Systolic Blood Pressure: 118mmHg Diastolic Blood Pressure: 70mmHg NIBP Mean: 86mmHg BP Location: Right upper extremity Actual Weight: 67.000kg(Converted to: 147.710lb) Dosing Weight Clinic: 67.00kg TIEN ELLIS - 01/09/2010 13:57 CDT Subjective Pain Symptoms: No TIEN ELLIS - 01/09/2010 13:57 CDT Dependent Habits Tobacco Use/Currently Using: No Alcohol Use: Yes TIEN ELLIS - 01/09/2010 13:57 CDT Caffeine Use Grid Caffeine Use: Current Type: Coffee Frequency: Daily TIEN ELLIS - 01/09/2010 13:57 CDT Allergies [facility]: [facility] POWERCHART Document Id: [id number] CDT!22 documented in this encounter Plan of Treatment Not on filedocumented as of this encounter Visit Diagnoses Not on filedocumented in this encounter
--- OUTSIDE RECORDS SUMMARY | 2021-12-17 09:50 | XMS_ITS | Encounter Summary ---
:1940 Author Organization [facility] Address [address] [place] [address] Care Team Providers Name Role Phone Unavailable Primary Care Provider Unavailable Encounter Details Date Type Department Care Team Description 01/31/2010 Hospital Encounter HX NO MAPPING Social History Tobacco Use Types Packs/Day Years Used Date Smoking Tobacco: Never Assessed Sex Assigned at Date Recorded Not on file documented as of this encounter Medications at Time of Discharge Medication Sig Dispensed Refills Start Date End Date CALCIUM CARB/VIT Take 1 tablet by 0 01/09/2010 D3/MINERALS mouth daily. (CALCIUM-VITAMIN D ORAL) documented as of this encounter Plan of Treatment Not on filedocumented as of this encounter Visit Diagnoses Not on filedocumented in this encounter
--- OUTSIDE RECORDS SUMMARY | 2021-12-17 09:50 | XMS_ITS | Encounter Summary ---
:1940 Author Organization [facility] Address [address] [place] [address] Care Team Providers Name Role Phone Unavailable Primary Care Provider Unavailable Encounter Details Date Type Department Care Team Description 04/10/2008 - 04/11/2008 Hospital Encounter HX RST DAY GOMEZ 8B Social History Tobacco Use Types Packs/Day Years Used Date Smoking Tobacco: Never Assessed Sex Assigned at Date Recorded Not on file documented as of this encounter Plan of Treatment Not on filedocumented as of this encounter Procedures Procedure Name Priority Date/Time Associated Comments Diagnosis DX THORACIC SPINE 2 Routine 04/11/2008 10:46 Resu lts for this VIEWS AM BRATTICE BUILDER procedure are i n the results section. DX THORACOLUMBAR SPINE Routine 04/11/2008 10:43 R esults for this SCOLIOSIS AP AND AM BRATTICE BUILDER procedure a re in LATERAL 2 VIEWS the results section. documented in this encounter Results DX Thoracic Spine 2 Views (04/11/2008 10:46 AM BRATTICE BUILDER) Anatomical Region Laterality Modality Thoracic Spine N/A Radiographic Imaging Specimen (Source) Anatomical Collection Method Collection Time Re ceived Time Location / / Volume Laterality 04/11/2008 10:46 AM BRATTICE BUILDER Narrative 04/11/2008 10:56 AM BRATTICE BUILDER 11-Apr-2008 10:46:00 ??Exam: Sp Thor*2vw AP/Lat STDG Indications: T1-3 fx ORIGINAL REPORT - 11-Apr-2008 10:56:00 Sp Thor*2vw AP/Lat STDG: Compression fracture T4 and possibly T3 unchanged from 04-10-08. Electronically signed by: ?? Rolf Bowden M.D. ??[id number] 11-Apr-2008 10: 56 Procedure Note Brandon Bowden M.D. - 08/04/2017Forma tting of this note might be different from the original. 11-Apr-2008 10:46:00 Exam: Sp Thor*2vw A P/Lat STDG Indications: T1-3 fx ORIGINAL REPORT - 11-Apr-2008 10:56:00 Sp Thor*2vw AP/Lat STDG: Compression fracture T4 and possibly T3 unchanged from 04-10-08. Electronically signed by: Rolf Bowden M.D. [id number] 11-Apr-2008 10:56 Wellington Putnam M.D. IMG DIAGNOSTIC IMAGING PROCE PONCHO DX Thoracolumbar Spine Scoliosis AP and Lateral 2 Views (04/11/2008 10:43 AM BRATTICE BUILDER) Anatomical Region Laterality Modality Thoracic Spine, Lumbar Spine N/A Radiographi c Imaging Specimen (Source) Anatomical Collection Method Collection Time Re ceived Time Location / / Volume Laterality 04/11/2008 10:43 AM BRATTICE BUILDER Narrative 04/11/2008 10:55 AM BRATTICE BUILDER 11-Apr-2008 10:43:00 ??Exam: Sp*Scoliosis 2vw AP/Lat Indications: scoli 1 and 6 standing in brace ?? thoracic compression fx ORIGINAL REPORT - 11-Apr-2008 10:55:00 Sp*Scoliosis 2vw AP/Lat: Metallic prosthesis overlying the thorac ic and upper lumbar spine. No scoliosis appreciated. Electronically signed by: ?? Rolf Bowden M.D. ??[id number] 11-Apr-2008 10: 55 Procedure Note Brandon Bowden M.D. - 08/04/2017Forma tting of this note might be different from the original. 11-Apr-2008 10:43:00 Exam: Sp*Scoliosis 2vw AP/Lat Indications: scoli 1 and 6 standing in brace thoracic compression fx ORIGINAL REPORT - 11-Apr-2008 10:55:00 Sp*Scoliosis 2vw AP/Lat: Metallic prosthesis overlying the thorac ic and upper lumbar spine. No scoliosis appreciated. Electronically signed by: Rolf Bowden M.D. [id number] 08-Dec-2008 10:55 Wellington NOBLES DIAGNOSTIC IMAGING PROCE DURES documented in this encounter Visit Diagnoses Not on filedocumented in this encounter
--- OUTSIDE RECORDS SUMMARY | 2021-12-17 09:50 | XMS_ITS | Encounter Summary ---
:1940 Author Organization [facility] Address [address] [place] [address] Care Team Providers Name Role Phone Unavailable Primary Care Provider Unavailable Encounter Details Date Type Department Care Team Description 08/18/1999 - 08/23/1999 Hospital Encounter HX NO MAPPING Social History Tobacco Use Types Packs/Day Years Used Date Smoking Tobacco: Never Assessed Sex Assigned at Date Recorded Not on file documented as of this encounter Plan of Treatment Not on filedocumented as of this encounter Procedures Procedure Name Priority Date/Time Associated Diagnosis Comme nts HXGENERAL PATHOLOGY Routine 08/21/1999 1:00 PM Re sults for this REPORT CDT procedure are i n the results section. EEG ROUTINE - AWAKE Routine 08/21/1999 12:36 PM R esults for this AND SLEEP CDT procedure are i n the results section. US CAROTID Routine 08/20/1999 9:19 AM Results f or this CDT procedure are i n the results section. DX CHEST AP OR PA Routine 08/18/1999 2:07 PM Resu lts for this AND LATERAL 2 VIEWS CDT procedur e are in the results section. ECG Routine 08/18/1999 12:55 PM Results for this CDT procedure are i n the results section. CT HEAD WITHOUT IV Routine 08/18/1999 12:22 PM Re sults for this CONTRAST CDT procedure are i n the results section. documented in this encounter Results Hx general Pathology Report (08/21/1999 1:00 PM CDT) Specimen Anatomical Collection Method Collection Time Receive d Time (Source) Location / / Volume Laterality 08/21/1999 1:00 PM 0 1:00 CDT PM CDT Narrative [facility] - 08/21/1999 1:00 PM CDT [id number] Surgical Pathology Requested By: ? Klaus Gonzalez M.D. ? ([id number]) ?? TISSUE DESCRIPTION: ?? Tissue from the left carotid artery (2.5 x 0.9 x 0.7 cm) ?? DIAGNOSIS: ?? Plaque, left carotid artery, excisio n: ??Segment of atheromatous plaque identified. ?? [id number] ?Tonya Lee M.D.:mgs Procedure Note 07/26/2017 [id number] Surgical Pathology Requested By: Klaus Gonzalez M.D. ( [id number]) TISSUE DESCRIPTION: Tissue from the left carotid artery (2. 5 x 0.9 x 0.7 cm) DIAGNOSIS: Plaque, left carotid artery, excision: Segment of atheromatous plaque identified. [id number] Tonya Lee M.D.:s Klaus Gonzalez M.D. LAB PATHOLOGY/CYTOLOGY ORDER VALDEZ Performing Organization Address City/State/ZIP Code Phon e Number [facility] - [address] [place], [place] [address] [facility] EEG routine - awake and sleep (08/21/1999 12:36 PM CDT) Specimen (Source) Anatomical Collection Method Collection Time Re ceived Time Location / / Volume Laterality 08/21/1999 12:36 PM CDT Narrative [facility] - 08/21/1999 12:36 PM CDT ?? Final Report ? El ectroencephalography ?? Referring Physician: ??Carlos ??[id number] ? Date: ??21 Aug 1999 ?? EEG Accounts Payable Payroll Coordinator: ? Rolf Giordano on 35 ?? Clinical Problem: ? Left carotid endarterectomy ?? CLINICAL INTERPRETATION: ??The study indicates that collateral flow is adequate during the acute period of occlusion. ?? EEG CLASSIFICATION: ??Special study - right carotid endarterectomy ( ??Carlos); Symmetric pattern beginning and end; No ?? change with carotid occlusion (Aileen e anesthesia). ?? REPORT: ??The baseline wake recordin g and anesthetic patterns using Forane were symmetric. ?? There was no change with occlusion o r following sikhism of flow. Rolf Ott ?melchor (Signature date Aug 1999 13:58) Procedure Note Provider, Historical - 08/18/2017Formatt ing of this note might be different from the original. Final Report Electroencephalography Referring Physician: [id number] Date : 21 Aug 1999 EEG Accounts Payable Payroll Coordinator: Rolf Ott [phone] Clinical Problem: Left carotid endarter ectomy CLINICAL INTERPRETATION: The study salina cates that collateral flow is adequate during the acute period of occlusion. EEG CLASSIFICATION: Special study - rig ht carotid endarterectomy (Dr. Gonzalez); Symmetric pattern beginning and end; No change with carotid occlusion (Forane a nesthesia). REPORT: The baseline wake recording and anesthetic patterns using Forane were symmetric. There was no change with occlusion or f ollowing sikhism of flow. Rolf roche (Signature date Aug 1999 13:58) Historical Provider NEUROLOGY ORDERABLES Performing Organization Address City/State/ZIP Code Phon e Number [facility] [address] [place] [address], U SA US Carotid (08/20/1999 9:19 AM CDT) Anatomical Region Laterality Modality Ultrasound Specimen (Source) Anatomical Collection Method Collection Time Re ceived Time Location / / Volume Laterality 08/20/1999 9:19 AM CDT Narrative 08/20/1999 11:27 AM CDT 20-Aug-1999 09:19:00 ??Exam: US Carotid Arteries Complete Indications: tia ? [id number] ??cart ORIGINAL REPORT - 20-Aug-1999 11:27:00 VELOCITIES (cm/sec) CCA* psv--Left:82---Right:86 ICA psv----Left:220---Right:90 ICA edv---Left:95---Right:45 ECA psv---Left:120---Right:107 *mid/distal (nondiseased) Left: Ultrasound examination of the left carotid system shows a moderate amount of plaque in the bifurcation region with velocity elevations in the very proximal left ICA consistent with a stenosis of a pproximately 70% diameter reduction. Lef t CCA and ECA are unremarkable. Left vertebral artery is patent with normal direction of flow. ?? Right: Minimal plaque in the bifurcation region. Doppler analysis shows no signficant stenosis in the right carotid system. Right vertebral artery patent with normal direction of flow. I:510.555; D:512.585 Electronically signed by: ?? Fernanda ??Connor ??Marisela [id number] 20-Aug-1999 11:27 Procedure Note Tonio Ryan M.D. - 08/11/2017Forma tting of this note might be different from the original. 20-Aug-1999 09:19:00 Exam: US Carotid Ar teries Complete Indications: tia [id number] cart ORIGINAL REPORT - 20-Aug-1999 11:27:00 VELOCITIES (cm/sec) CCA* psv--Left:82---Right:86 ICA psv----Left:220---Right:90 ICA edv---Left:95---Right:45 ECA psv---Left:120---Right:107 *mid/distal (nondiseased) Left: Ultrasound examination of the left carotid system shows a moderate amount of plaque in the bifurcation region with velocity elevations in the very proximal left ICA consistent with a stenosis of approximately 70% diameter reduction. Left CCA and ECA are unremarkable. Left vertebral artery is patent with normal direction of flow. Right: Minimal plaque in the bifurcation region. Doppler analysis shows no signficant stenosis in the right carotid system. Right vertebral artery patent with normal direction of flow. I:510.555; D:512.585 Electronically signed by: Fernanda Ryan M.D. [id number] 20-Aug-1999 11: 27 Gato Osorio M.D. IMG US PROCEDURES DX Chest AP or PA and Lateral 2 Views (08/18/1999 2:07 PM CDT) Anatomical Region Laterality Modality Chest N/A Radiographic Imaging Specimen (Source) Anatomical Collection Method Collection Time Re ceived Time Location / / Volume Laterality 08/18/1999 2:07 PM CDT Narrative 08/18/1999 2:13 PM CDT 18-Aug-1999 14:07:00 ??Exam: Chest-- 2 Views Indications: JUAN ORIGINAL REPORT - 18-Aug-1999 14:13:00 Calcified granulomas both lungs. Chest o therwise negative. Electronically signed by: ?? Elisha Covarrubias MD. ??[id number] 18-Aug-1999 14 :13 Procedure Note Ericka Covarrubias M.D. - 08/11/2017Format ting of this note might be different from the original. 18-Aug-1999 14:07:00 Exam: Chest-- 2 Vie ws Indications: JUAN ORIGINAL REPORT - 18-Aug-1999 14:13:00 Calcified granulomas both lungs. Chest o therwise negative. Electronically signed by: Elisha Covarrubias MD. [id number] 18-Aug-1999 14:1 3 Severiano Mayfield M.D. IMG DIAGNOSTIC IMAGING PROCE DURES ECG 12 Lead (08/18/1999 12:55 PM CDT) Specimen (Source) Anatomical Collection Method Collection Time Re ceived Time Location / / Volume Laterality 08/18/1999 12:55 PM CDT [facility] - 08/19/1999 6:48 AM CDT 18Aug1999 12:55 VENTRICULAR RATE 56 Sinus bradycardia Otherwise normal ECG No previous ECGs available Nubia^AMANDA ??^Angella CARRIZALES Procedure Note Provider, Historical - 07/29/2017Formatt ing of this note might be different from the original. 18Aug1999 12:55 VENTRICULAR RATE 56 Sinus bradycardia Otherwise normal ECG No previous ECGs available 908^AMANDA MARISCAL^Angella CARRIZALES Historical Provider ECG ORDERABLES Performing Organization Address City/State/ZIP Code Phon e Number HX [facility] [address] [place] [address], U [address] Head without IV Contrast (08/18/1999 12:22 PM CDT) Anatomical Region Laterality Modality Head N/A Computed Tomography Specimen (Source) Anatomical Collection Method Collection Time Re ceived Time Location / / Volume Laterality 08/18/1999 12:22 PM CDT Narrative 08/19/1999 9:01 AM CDT 18-Aug-1999 12:22:00 ??Exam: CT Head wo Indications: TIA REVISED REPORT - 19-Aug-1999 09:01:00 Revised 08/19/1999 09:00:15 ([id number]) ??CT scan of the head without contrast is negative. No hemorrhage or mass effect. IND [id number] ??DX ??180.120 Electronically signed by: ?? Reno Bran MD. ??[id number] 19-Aug-1999 0 9:01 Procedure Note Akilah Bran M.D. - 08/11/2017F ormatting of this note might be different from the original. 18-Aug-1999 12:22:00 Exam: CT Head wo Indications: TIA REVISED REPORT - 19-Aug-1999 09:01:00 Revised 08/19/1999 09:00:15 ([id number]) CT scan of the head without c ontrast is negative. No hemorrhage or mass effect. IND [id number] DX 180.120 Electronically signed by: Reno Bran MD. [phone] 19-Aug-1999 09: 01 Severiano Mayfield M.D. IMJulienne CT PROCEDURES documented in this encounter Visit Diagnoses Not on filedocumented in this encounter
[2021-12-17 15:20] LABS: H pylori Ag Stool* Negative (Negative)
== END 2021-12-17 15:15 | disposition home or self-care (01) ==
PROVIDERS: PCP Nurse Practitioner Family; Visit Provider Nurse Practitioner Family
DX: R10.9 Unspecified abdominal pain (principal)
CPT/HCPCS: 87338

== ENCOUNTER 2021-12-18 07:52 | Outpatient (CLI) | payer MEDICARE, BC, SELFPAY ==
--- OUTSIDE RECORDS SUMMARY | 2021-12-18 08:01 | XMS_ITS | Encounter Summary ---
:1940 Author Organization [facility] Address [address] [place] [address] Care Team Providers Name Role Phone Elisha Woodward MD Primary Care Provider Encounter Details Date Type Department Care Team Description 02/16/2021 Immunization Family Medicine [address] [place] [address] Social History Tobacco Use Types Packs/Day Years [...] on filedocumented in this encounter Care Teams Impregnation Operator Relationship Specialty Start Date End Date Elisha Woodward MD PCP - General 01/01/[address] [place] [address] documented as of this encounter
--- OUTSIDE RECORDS SUMMARY | 2021-12-18 08:01 | XMS_ITS | Encounter Summary ---
:1940 Author Organization [facility] Address [address] [place] [address] Care Team Providers Name Role Phone None, Pcp Primary Care Provider Unavailable Encounter Details Date Type Department Care Team Description 09/08/2020 Orders Only [place] El[facility]ward MD [address] [facility] [address] [place], [place] [address] [place], [place] [phone] [id number] (Wo rk) Social History Tobacco Use Types [...] on filedocumented in this encounter Care Teams Coal Screener Relationship Specialty Start Date End Date None, Pcp PCP - General Extruding Press Adjuster 03/29/20 12/31/20 [address] [place] [address] documented as of this encounter
--- OUTSIDE RECORDS SUMMARY | 2021-12-18 08:01 | XMS_ITS | Clinical Summary ---
:1940 Author Organization [facility] Address [address] [place] [address] Care Team Providers Name Role Phone Elisha [...] or chest pain lesion type, unspecified whether [place] or transplanted heart metoprolol succinate Take ONE pill 90 tablet 3 10/25/2020 Active XL (TOPROL-XL) 25 MG ONCE a day for 24 hr blood tabletIndications: pressure. Do Atherosclerosis of not crush or [place] coronary chew. artery without angina pectoris, unspecified whether [place] or transplanted heart aspirin 81 MG Chew [...] Added automatically from request for mayte hardy [id number] Occult blood in stools 09/11/2020 Overview: Formatting of this note might be differe nt from the original. Added automatically from request for mayte hardy [id number] Primary osteoarthritis, left shoulder 12/20/2019 Overview: Formatting of this note might be differe nt from the original. Added automatically from request for mayte hardy [id number] Bilateral hearing loss 12/14/2019 Gastroesophageal reflux disease [...] irrigation completed by nursing staff. Follow-up with lithographic platemaker on a regular basis. 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 [...] 07/21/2020, 06/30/2020 Fall Risk Performed 10/25/2021 10/25/2020 [facility] Annual Wellness 10/25/2021 10/25/2020, 01/09/2018 [facility] Pneumococcal Vaccine: 65+ Completed 01/09/2018, Years 06/10/2006 [facility] Pneumococcal Vaccine: <64 Completed 01/09/2018, 06/10/2006 HPV Vaccines Aged Out No longer eligib le based on patient's age to complete this to [facility] Insurance Payer Benefit Plan / Subscriber ID Effective Dates Phone Addre ss Type Group MEDICARE MEDICARE [id number] 2006-Yandy [address] [place] [address] BC[place] [id number] 2016-Yandy [address] [place] [address] [place], [place] MEDICARE NON [id number] (Home) [place] [id number] Care Teams Consulting It Architect Relationship Specialty Start Date End Date Elisha Woodward MD PCP - General 01/01/[address] [place] [address]
--- OUTSIDE RECORDS SUMMARY | 2021-12-18 08:01 | XMS_ITS | Encounter Summary ---
:[address] [facility] Address [address] [place] [address] Care Team Providers Name Role Phone None, Pcp Primary Care Provider Unavailable Encounter Details Date Type Department Care Team Description 10/15/2020 Orders Only [place] Elisha [facility]ward MD [address] [facility] [address] [place], [place] [address] [place], [place] [phone] (Wo rk) Social History Tobacco Use Types [...] on filedocumented in this encounter Care Teams Bottom Ironer Relationship Specialty Start Date End Date None, Pcp PCP - General Dye Range Operator 03/29/20 12/31/20 [address] [place] [address] documented as of this encounter
--- OUTSIDE RECORDS SUMMARY | 2021-12-18 08:01 | XMS_ITS | Encounter Summary ---
:1940 Author Organization [facility] Address [address] [place] [address] Care Team Providers Name Role Phone Elisha Woodward MD Primary Care Provider Reason for Visit Reason Onset Date Comments medication question 01/15/2021 Encounter Details Date Type Department Care Team Description 01/15/2021 Telephone [place], medication question [address] [facility] [address] [place], [place] [address] [phone] [place] [address] (Wo rk) Social History Tobacco Use Types [...] this encounter Miscellaneous Notes Telephone Encounter - Nihsa Morrison RN - 01/15/2021 1:23 PM CDT Patient called to say he would start taking the baby Aspirin. Added to med list. Telephone Encounter - Elisha Woodward MD - 01/15/2021 1:21 PM CDT I [...] a medication question. Please call Pt at [phone] documented in this encounter Plan of Treatment Not on filedocumented as of this encounter Visit Diagnoses Not on filedocumented in this encounter Care Teams Bow Rehairer Relationship Specialty Start Date End Date Elisha Woodward MD PCP - General 01/01/[address] [place] [address] documented as of this encounter
--- OUTSIDE RECORDS SUMMARY | 2021-12-18 08:01 | XMS_ITS | Encounter Summary ---
:1940 Author Organization [facility] Address [address] [place] [address] Care Team Providers Name Role Phone None, [...] polyp of colon, unspecified part of colon; [address] [place] Hyperlipidemia, unspecified hyperlipidem ia type; [phone] Margarito [place], Atherosclerosi s of [place] coronary artery without angina pectoris, unspecified whether [place] or transplanted heart; [place] [address] 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, unspecified vessel or lesion type, unspecified whether [place] or transplanted heart; [phone] Gastroesophagea l reflux disease without esophagitis (Work) [...] 1 (one) time each day Atherosclerosis of [place] coronary artery without angina pectoris, unspecified whether [place] or transplanted heart - metoprolol succinate XL (TOPROL-XL) 25 MG 24 hr tablet; Take ONE pill ONCE a day for blood pressure. Do not crush or chew. Coronary artery 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 pectoris, unspecified vessel or lesion type, unspecified whether [place] or transplanted heart Gastroesophageal reflux disease without [...] Hyperlipidemia, unspecified hyperlipidem ia type Atherosclerosis of [place] coronary arter y without angina pectoris, unspecified whether [place] or transplanted heart 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, unspecified vessel or lesion type, unspecified whether [place] or transplant ed heart Gastroesophageal reflux disease without esophagitis Esophageal reflux documented in this encounter Care Teams Outpatient Admitting Clerk Relationship Specialty Start Date End Date None, Pcp PCP - General Foreign Trade Teacher 03/29/20 12/31/20 [address] [place] [address] documented as of this encounter
--- OUTSIDE RECORDS SUMMARY | 2021-12-18 08:01 | XMS_ITS | Encounter Summary ---
:1940 Author Organization [facility] Address [address] [place] [address] Care Team Providers Name Role Phone None, Pcp Primary Care Provider Unavailable Reason for Visit Reason Onset Date Comments Lab result 09/01/2020 Encounter Details Date Type Department Care Team Description 09/01/2020 Telephone [place] Elisha Woodward MD Lab result [address] [place], [place] [address] [place], [place] [phone] (Wo rk) Social History Tobacco Use Types [...] if possible. Please call Pt at home [phone] or cell [phone] to advise. documented in this encounter Plan of Treatment Not on filedocumented as of this encounter Visit Diagnoses Diagnosis Colon cancer screening - Primary Special screening for malignant neoplasm s, colon documented in this encounter Care Teams Relationship Specialty Start Date End Date None, Pcp PCP - General Hatchery Manager 03/29/20 12/31/20 [address] [place] [address] documented as of this encounter
--- OUTSIDE RECORDS SUMMARY | 2021-12-18 08:01 | XMS_ITS | Encounter Summary ---
:1940 Author Organization [facility] Address [address] [place] [address] Care Team Providers Name Role Phone None, [...] Branch Off w/Diff (10/25/2020 9:17 AM CDT) [facility] gist Method Time Signature WBC 7.2 3.5 [...] FALLS Granulocytes/Urszula 4.8 1.7 - 7.0 10/25/2020 [facility] [place] trophils K/uL 9:32 AM CDT FALL[place] Absolute Specimen Anatomical Collection Method Collection Time Receive d Time (Source) Location / / Volume Laterality 10/25/2020 9:17 AM 9:31 CDT AM CDT D. 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
--- OUTSIDE RECORDS SUMMARY | 2021-12-18 08:01 | XMS_ITS | Encounter Summary ---
:1940 Author Organization [facility] Address [address] [place] [address] Care Team Providers Name Role Phone None, Pcp Primary Care Provider Unavailable Reason for Visit Reason Comments Medicare Annual Wellness Visit Subsequent Encounter Details Date Type Department Care Team Description 10/25/2020 Clinical Support Margarito Love Medicare annual wellness [address] visit, subsequent Margarito Love [place] [address] (Primary Dx) [phone] Social History Tobacco Use Types Packs/Day Years [...] Team: Pcp None as PCP - General (Sole Seamer) Eye Care: [facility] Dental Care: [facility] Pharmacy: [facility] [address] [place] [id number] Other: Visit Vitals BP 134/88 (BP Location: [...] pathological fracture ??? Atherosclerotic heart disease of tribe coronary artery without angina pectoris ??? Disturbance [...] Gatherings with Friends and Family: ??? Attends Mormonism Services: ??? Active Member of Clubs or [...] transfusion before 1991. ?? Those born between 4864-3847. Glaucoma: Medicare Part B (Medical Insurance) covers [...] Primary documented in this encounter Care Teams Certified Industrial Hygienist Relationship Specialty Start Date End Date None, Pcp PCP - General Sole Seamer 03/29/20 12/31/[address] [place] [phone] documented as of this encounter
--- OUTSIDE RECORDS SUMMARY | 2021-12-18 08:01 | XMS_ITS | Encounter Summary ---
:1940 Author Organization [facility] Address [address] [place] [address] Care Team Providers Name Role Phone None, Pcp Primary Care Provider Unavailable Reason for Visit Reason Onset Date Comments Review Results 10/16/2020 Encounter Details Date Type Department Care Team Description 10/16/2020 Telephone [place] None, Pcp Review Results [address] [place], [place] [address] [place], [place] [phone] Social History Tobacco Use Types Packs/Day [...] results appointment. Keep a copy at the vest front presser for his appointment. Send to scanning the original. documented in this encounter Plan of Treatment Not on filedocumented as of this encounter Visit Diagnoses Not on filedocumented in this encounter Care Teams Activities Specialist Relationship Specialty Start Date End Date None, Pcp PCP - General Clinical Resource Director 03/29/20 12/31/[address] [place] [phone] documented as of this encounter
--- OUTSIDE RECORDS SUMMARY | 2021-12-18 08:01 | XMS_ITS | Encounter Summary ---
:1940 Author Organization [facility] Address [address] [place] [address] Care Team Providers Name Role Phone Elisha Woodward MD Primary Care Provider Reason for Visit Reason Comments Med Refill Encounter Details Date Type Department Care Team Description 11/01/2021 Refill [place] Elisha Woodward Gastroesophageal reflux [address] MD [place] disease without esophagitis [place], [place] [address] [address] [facility] [address] [place] [address] Social History Tobacco Use Types Packs/Day Years [...] reflux documented in this encounter Care Teams Hot Dip Plating Supervisor Relationship Specialty Start Date End Date Elisha Woodward MD PCP - General 01/01/[address] [place] [address] documented as of this encounter
--- OUTSIDE RECORDS SUMMARY | 2021-12-18 08:01 | XMS_ITS | Encounter Summary ---
:1940 Author Organization [facility] Address [address] [place] [address] Care Team Providers Name Role Phone Elisha Woodward MD Primary Care Provider Reason for Visit Reason Comments Med Refill Encounter Details Date Type Department Care Team Description 11/17/2021 Refill [place] Elisha Woodward Hyperlipidemia, unspecified hyperlipidemia type; [address] MD [place] Gastroesophageal reflux disease without esophagitis [place], [place] [address] [place] [address] Social History Tobacco Use Types Packs/Day Years [...] reflux documented in this encounter Care Teams Checking Clerk Relationship Specialty Start Date End Date Elisha Woodward MD PCP - General 01/01/[address] [place] [address] documented as of this encounter
--- OUTSIDE RECORDS SUMMARY | 2021-12-18 08:01 | XMS_ITS | Encounter Summary ---
:1940 Author Organization [facility] Address [address] [place] [address] Care Team Providers Name Role Phone None, Pcp Primary Care Provider Unavailable Encounter Details Date Type Department Care Team Description 09/08/2020 Orders Only Elisha Young Colon cancer screening [address] MD Dontrell (Primary Dx) [place], [place] [address] 2978 [facility] 20 [place] [address] Social History Tobacco Use Types Packs/Day Years [...] colon documented in this encounter Care Teams Tape Keller Operator Relationship Specialty Start Date End Date None, Pcp PCP - General Aircraft Machinist Helper 03/29/20 12/31/20 [address] [place] [address] documented as of this encounter
--- OUTSIDE RECORDS SUMMARY | 2021-12-18 08:01 | XMS_ITS | Encounter Summary ---
:1940 Author Organization [facility] Address [address] [place] [address] Care Team Providers Name Role Phone None, Pcp Primary Care Provider Unavailable Encounter Details Date Type Department Care Team Description 10/15/2020 Telephone [place] Elisha Woodward MD [address] [facility] [address] [place], [place] [address] [place], [place] [phone] (Wo rk) Social History Tobacco Use Types [...] on filedocumented in this encounter Care Teams Spanish Language Lecturer Relationship Specialty Start Date End Date None, Pcp PCP - General Assistant Clinical Director 03/29/20 12/31/20 [address] [place] [address] documented as of this encounter
--- OUTSIDE RECORDS SUMMARY | 2021-12-18 08:01 | XMS_ITS | Encounter Summary ---
:1940 Author Organization [facility] Address [address] [place] [address] Care Team Providers Name Role Phone None, Pcp Primary Care Provider Unavailable Reason for Referral Consultation (Routine) - Closed Specialty Diagnoses / Procedures Referred By Contact Refer red To Contact Diagnoses Anemia, unspecified type Guaiac positive stools Elisha Woodward MD [facility] [address] [address] Referral ID Status Reason Start Date Expiration Date Visits Requ ested Visits Authorized [id number] Closed 09/08/2020 09/08/2021 1 1 Reason for Visit Reason Onset Date Comments Referral 09/08/2020 Encounter Details Date Type Department Care Team Description 09/08/2020 Telephone [place] MD Referral 1705 [facility] [address] [place], [place] [address] [place], [place] [phone] (Wo rk) Social History Tobacco Use Types [...] 10:36 AM CDT Please fax referral to [facility] Telephone Encounter - Elisha Woodward MD - 09/08/2020 10:17 AM CDT I have placed a referral for Obey to get a colonoscopy at [facility]. I have also sent to Obey's pharmacy [facility] for the GoLYTELY prep. After you fax the referral to [place] in [facility] I would have you call one of [...] the next couple of days. He should pickle processor he has proper from his pharmacy. And also let him know that this may be both scoping from above looking at his stomach as well as a colonoscopy. Telephone Encounter - Nisha Morrison RN - 09/08/2020 9:47 AM CDT Patient would like to do this at [facility]. Please place order. Prep instructions were mailed [...] done. We could do it down at [facility] we could do it at [facility] at the [facility] site because of his underlying previous [...] up or he can stop by the [place] office and pickle processor the prep sheet. I will also send [...] in his stool. Please call him at [phone]. documented in this encounter Plan of Treatment Scheduled Referrals Name Type Priority Associated Diagnoses [facility] Outpatient Referral Routine Anemia, unspec ified Ordered: Referral type 09/08/2020 Guaiac positive stools documented as of this encounter Visit Diagnoses Diagnosis Anemia, unspecified type - Primary Guaiac positive stools Nonspecific abnormal finding in stool co ntents documented in this encounter Care Teams Clothes Shaker Relationship Specialty Start Date End Date None, Pcp PCP - General Fluid Power Mechanic 03/29/20 12/31/20 [address] [place] [address] documented as of this encounter
--- OUTSIDE RECORDS SUMMARY | 2021-12-18 08:01 | XMS_ITS | Encounter Summary ---
:1940 Author Organization [facility] Address [address] [place] [address] Care Team Providers Name Role Phone Elisha Woodward MD Primary Care Provider Reason for Visit Reason Onset Date Comments med list 03/26/2021 Encounter Details Date Type Department Care Team Description 03/26/2021 Telephone [place] Elisha Woodward MD med list [facility] [facility] [address] [place], [place] [address] [place], [place] [phone] (Wo rk) Social History Tobacco Use Types [...] - 03/27/2021 11:42 AM CST Picked up. [facility] Telephone Encounter - Guillermina Bradford LPN - 03/26/2021 12:45 PM CST At senior front end developer [facility] Telephone Encounter - Arti Amaya - 03/26/2021 12:37 PM CST Pt called asking for a copy of his med list. Pt will pick it up in clinic tomorrow, Friday03/27/21. [facility] documented in this encounter Plan of Treatment Not on filedocumented as of this encounter Visit Diagnoses Not on filedocumented in this encounter Care Teams Neighborhood Planner Relationship Specialty Start Date End Date Elisha Woodward MD PCP - General 01/01/[address] [place] [address] documented as of this encounter
--- OUTSIDE RECORDS SUMMARY | 2021-12-18 08:01 | XMS_ITS | Encounter Summary ---
:[address] [facility] Address [address] [place] [address] Care Team Providers Name Role Phone Elisha Woodward MD Primary Care Provider Reason for Visit Reason Comments Med Refill Encounter Details Date Type Department Care Team Description 12/13/2021 Refill [place] Elisha Woodward Hyperlipidemia, unspecified [address] [facility] MD Dontrell hyperlipidemia type [place], [place] [address] [phone] [place] [address] Social History Tobacco Use Types Packs/Day Years [...] type documented in this encounter Care Teams City Surveyor Relationship Specialty Start Date End Date Elisha Woodward MD PCP - General 01/01/[address] [place] [address] documented as of this encounter
--- OUTSIDE RECORDS SUMMARY | 2021-12-18 08:01 | XMS_ITS | Encounter Summary ---
:1940 Author Organization [facility] Address [address] [place] [address] Care Team Providers Name Role Phone None, Pcp Primary Care Provider Unavailable Reason for Visit Reason Onset Date Comments med questions 09/13/2020 Encounter Details Date Type Department Care Team Description 09/13/2020 Telephone [place] None, Pcp med questions [address] [place], [place] [address] [place], [place] [phone] Social History Tobacco Use Types Packs/Day [...] some medication questions. Please call Pt at [phone] advise. documented in this encounter Plan of Treatment Not on filedocumented as of this encounter Visit Diagnoses Not on filedocumented in this encounter Care Teams Manager Telemetry Relationship Specialty Start Date End Date None, Pcp PCP - General Dispensary Attendant 03/29/20 12/31/20 [address] [place] [address] documented as of this encounter
--- OUTSIDE RECORDS SUMMARY | 2021-12-18 08:02 | XMS_ITS | Encounter Summary ---
:1940 Author Organization [facility] Address [address] [place] [address] Care Team Providers Name Role Phone None, Pcp Primary Care Provider Unavailable Encounter Details Date Type Department Care Team Description 07/21/2020 Immunization Family Medicine [address] [place] [address] Social History Tobacco Use Types Packs/Day Years [...] filedocumented in this encounter Care Teams Supervisor Paste Plant Relationship Specialty Start Date End Date None, Pcp PCP - General Accounting Support Specialist 03/29/20 12/31/20 [address] [place] [address] documented as of this encounter
--- OUTSIDE RECORDS SUMMARY | 2021-12-18 08:02 | XMS_ITS | Encounter Summary ---
:1940 Author Organization [facility] Address [address] [place] [address] Care Team Providers Name Role Phone None, Pcp Primary Care Provider Unavailable Encounter Details Date Type Department Care Team Description 06/30/2020 Immunization Family Medicine [address] [place] [address] Social History Tobacco Use Types Packs/Day Years [...] on filedocumented in this encounter Care Teams Repairer Screen Crusher Relationship Specialty Start Date End Date None, Pcp PCP - General Arcgis Developer 03/29/20 12/31/20 [address] [place] [address] documented as of this encounter
--- OUTSIDE RECORDS SUMMARY | 2021-12-18 08:02 | XMS_ITS | Encounter Summary ---
:1940 Author Organization [facility] Address [address] [place] [address] Care Team Providers Name Role Phone Laila Loco APRN, OFFICE MACHINES WIRER Primary Care Provider [phone] Encounter Details Date Type Department Care Team Description 07/06/2019 Lab Margarito Love Decreased appetite [address] [place], [place] [address] Social History Tobacco Use [...] carlos enrique etite Results for this RATE [facility]EP [facility]CHER procedure are i n the results section. CBC BRANCH OFFICE Routine 07/06/2019 9:16 AM Decreased appetit e Results for this W/DIFF SHEEP RANCHER procedure are i n the results section. SEDIMENTATION RATE, Routine 07/06/2019 9:16 AM Decreased appet ite Results for this AUTOMATED SHEEP RANCHER procedure are i n the results section. C-REACTIVE PROTEIN Routine 07/06/2019 9:16 AM Decreased appeti te Results for this SHEEP RANCHER procedure are i n the results section. LIPASE Routine 07/06/2019 9:16 AM Decreased appetite Res ults for this SHEEP RANCHER procedure are i n the results section. AMYLASE Routine 07/06/2019 9:16 AM Decreased appetite Res ults for this SHEEP RANCHER procedure are i n the results section. COMPREHENSIVE Routine 07/06/2019 9:16 AM Decreased appetite Re sults for this METABOLIC PANEL SHEEP RANCHER procedure ar e in the results section. documented in this encounter Results (ABNORMAL) Glomerular filtration rate (GFR) (07/06/2019 9:16 AM [facility]) athologist Signature GFR 58 (A) 07/06/2019 [facility] 1:32 PM [facility] >60 07/06/2019 [facility] [place] GFR 1:32 PM [facility] Comment: GFR calculated from serum creatinine v alue Chronic Kidney Disease less than 60 mL/m in/1.73 m2 Kidney Failure less than 15 mL/min/1.73 m2 Note: effective 09/17/06 IDMS-Traceable MDRD Study Equation used. Specimen Anatomical Collection Method Collection Time Receive d Time (Source) Location / / Volume Laterality 07/06/2019 9:16 AM 0 9:16 [facility] AM [facility] Laila Loco APRN, OFFICE MACHINES WIRER LAB BLOOD ORDERABLES Performing Organization Address City/State/ZIP Code Phon e Number [facility] [address] [place] [phone] CBC Branch Off w/Diff (07/06/2019 9:16 AM [facility]) athologist Signature WBC 7.1 3.5 - 10.5 07/06/2019 [facility] [place] K/uL 9:33 AM [facility] [place] RBC 5.12 4.30 - 07/06/2019 [place] 5.70 M/uL 9:33 AM [facility] [place] Hemoglobin 15.5 13.5 - 07/06/2019 [place] 17.5 g/dL 9:33 AM [facility] [place] Hematocrit 46.5 38.0 - 07/06/2019 [facility] [place] 50.0 % 9:33 AM [facility] [place] Platelets 242 150 - 450 07/06/2019 [facility] [place] [place] K/uL 9:33 AM [facility] [place] MCV 90.8 81.2 - 07/06/2019 [facility] [place] [place] 95.1 fL 9:33 AM [facility] [place] MCH 30.3 26.0 - 07/06/2019 [facility] [place] [place] 32.0 pg 9:33 AM [facility] [place] MCHC 33.3 32.0 - 07/06/2019 [facility] [place] [place] 36.0 g/dL 9:33 AM [facility] [place] RDW 14.5 11.8 - 07/06/2019 [facility] [place] [place] 15.6 % 9:33 AM [facility] [place] Lymphocytes % 19.8 18.0 - 07/06/2019 [facility] [place] [place] 45.0 % 9:33 AM [facility] [place] Mid-size Cells 9.1 3.3 - 10.1 07/06/2019 [facility] [place] [place] % 9:33 AM [facility] [place] Granulocytes/Urszula 71.1 45.8 - 07/06/2019 [facility] [place] [place] trophils 73.7 % 9:33 AM [facility] [place] Lymphocytes 1.4 0.9 - 2.9 07/06/2019 [facility] [place] [place] Absolute K/uL 9:33 AM [facility] [place] MIDS Absolute 0.6 0.2 - 0.8 07/06/2019 [facility] [place] [place] K/uL 9:33 AM [facility] [place] Granulocytes/Urszula 5.1 2.1 - 8.7 07/06/2019 [facility] [place] [place] trophils K/uL 9:33 AM [facility] [place] Absolute Specimen Anatomical Collection Method Collection Time Receive d Time (Source) Location / / Volume Laterality Blood 07/06/2019 9:16 AM 0 9:21 [facility] AM [facility] Laila Loco ACUTE CARE SURGEON, OFFICE MACHINES WIRER LAB BLOOD ORDERABLES Performing Organization Address City/State/ZIP Code Phon e Number [facility] [place] [address] [place] [address] (ABNORMAL) Comprehensive metabolic panel (07/06/2019 9:16 AM [facility]) [facility] gist Method Time Signature Total Protein 8.6 (H) 6.3 - 8.2 07/06/2019 [place] g/dL 1:32 PM [facility] Albumin, Serum 4.5 3.5 - 5.0 07/06/2019 [place] g/dL 1:32 PM [facility] Total Bilirubin 1.3 (H) 0.1 - 1.0 07/06/2019 [place] mg/dL 1:32 PM [facility] AST 26 8 - 48 U/L 07/06/2019 [place] 1:32 PM [facility] Alkaline 134 (H) 38 - 128 07/06/2019 [place] Phosphatase U/L 1:32 PM [facility] ALT (SGPT) 21 0 - 49 U/L 07/06/2019 [place] 1:32 PM [facility] Sodium 140 135 - 145 07/06/2019 [place] mEq/L 1:32 PM [facility] Potassium 4.2 3.5 - 5.1 07/06/2019 [place] mEq/L 1:32 PM [facility] Chloride 100 98 - 107 07/06/2019 [place] mEq/L 1:32 PM [facility] CO2 28 22 - 31 07/06/2019 [place] mmol/L 1:32 PM [facility] BUN 13 5 - 25 07/06/2019 [place] mg/dL 1:32 PM [facility] Creatinine 1.2 0.6 - 1.4 07/06/2019 [place] mg/dL 1:32 PM [facility] Glucose 117 (H) 70 - 100 07/06/2019 [place] mg/dL 1:32 PM [facility] Calcium, Total,S 9.7 8.4 - 10.2 07/06/2019 [place] mg/dL 1:32 PM [facility] Fasting? Yes 07/06/2019 [place] 9:21 AM [facility] Specimen Anatomical Collection Method Collection Time Receive d Time (Source) Location / / Volume Laterality Blood 07/06/2019 9:16 AM 0 [facility] 12:32 PM [facility] Laila Loco APRN, CNP LAB BLOOD ORDERABLES Performing Organization Address City/[facility] Phon e Number [facility] [address] [place] [phone] (ABNORMAL) Amylase (07/06/2019 9:16 AM [facility]) athologist Signature Amylase 173 (H) 30 - 110 07/06/2019 [facility] U/L 1:32 PM [facility] Specimen Anatomical Collection Method Collection Time Receive d Time (Source) Location / / Volume Laterality Blood (Blood, 07/06/2019 9:16 AM 07/06/19 20 Venous) [facility] 12:32 PM [facility] Laila Loco APRN, CNP LAB BLOOD ORDERABLES Performing Organization Address [facility] Phon e Number [facility] [address] [place] [phone] Lipase (07/06/2019 9:16 AM SHEEP [facility]) athologist [facility] Lipase 85 23 - 300 07/06/2019 [facility] U/L 1:32 PM [facility] Specimen Anatomical Collection Method Collection Time Receive d Time (Source) Location / / Volume Laterality Blood (Blood, 07/06/2019 9:16 AM 07/06/19 20 Venous) [facility] 12:32 PM [facility] Laila Loco APRN, CNP LAB BLOOD ORDERABLES Performing Organization Address [facility] e Number [facility] [address] [place] [phone] (ABNORMAL) ESR-Sed rate (07/06/2019 9:16 AM [facility]EP [facility]) athologist Signature Sed Rate 36 (H) 0 - 22 07/06/2019 [facility] mm/hr 1:40 PM [facility] Specimen Anatomical Collection Method Collection Time Receive d Time (Source) Location / / Volume Laterality Blood (Blood, 07/06/2019 9:16 AM 07/06/19 20 Venous) [facility] 12:32 PM [facility] Laila Loco APRN, CNP LAB BLOOD ORDERABLES Performing Organization Address City/[facility] Phon e Number [facility] [address] [place] [address] C-reactive protein (07/06/2019 9:16 AM [facility]EP [facility]) P athologist Signature CRP 2.0 0.0 - 4.9 07/06/2019 [facility] mg/L 1:32 PM [facility] Specimen Anatomical Collection Method Collection Time Receive d Time (Source) Location / / Volume Laterality Blood (Blood, 07/06/2019 9:16 AM 07/06/19 20 Venous) [facility] 12:32 PM [facility] Laila Loco APRN, CNP LAB BLOOD ORDERABLES Performing Organization Address City/State/[facility] Code Phon e Number [facility] [address] [place] [address] documented in this encounter Visit Diagnoses Diagnosis Decreased appetite Anorexia documented in this encounter Care Teams Supervisor Shipfitters Relationship Specialty Start Date End Date Laila Loco APRN, CNP PCP - General 12/09/17 01/10/20 [address] [place] [address] documented as of this encounter
--- OUTSIDE RECORDS SUMMARY | 2021-12-18 08:02 | XMS_ITS | Encounter Summary ---
:1940 Author Organization [facility] Address [address] [place] [address] Care Team Providers Name Role Phone Laila Loco APRN, IRA Primary Care Provider [phone] Reason for Visit Reason Onset Date Comments fax 10/05/2019 Encounter Details Date Type Department Care Team Description 10/05/2019 Telephone [place] Elisha Woodward MD [facility] [address] [facility] [address] [place], [place] [address] [place], [place] [phone] [address] (Wo rk) Social History Tobacco Use Types [...] them as prescribed. He uses [facility] in [place] for a pharmacy. He stated he isn't [...] Morrison RN - 10/05/2019 2:31 PM CDT [facility] faxed that the patient's Metoprolol 25mg has not been filled regularly. Last Rx was written 08/2018. Please advise. documented in this encounter Plan of Treatment Not on filedocumented as of this encounter Visit Diagnoses Not on filedocumented in this encounter Care Teams Abrasive Mixer Helper Relationship Specialty Start Date End Date Laila Loco APRN, DONOR SERVICES MANAGER PCP - General 12/09/17 01/10/20 [address] [place], [place] [address] documented as of this encounter
--- OUTSIDE RECORDS SUMMARY | 2021-12-18 08:02 | XMS_ITS | Encounter Summary ---
:1940 Author Organization [facility] Address [address] [place] [address] Care Team Providers Name Role Phone None, Pcp Primary Care Provider Unavailable Reason for Visit Reason Onset Date Comments med question 03/31/2020 Encounter Details Date Type Department Care Team Description 03/31/2020 Telephone [place] Elisha Woodward MD med question [address] [place], [place] [address] [place], [place] [phone] (Wo rk) Social History Tobacco Use Types [...] call ahead to schedule with the nurse. EL BUILDER Telephone Encounter - Janki Ortiz - 03/31/2020 9:47 AM CST Pt has question about how to take his ear drops? EL BUILDER documented in this encounter Plan of Treatment Not on filedocumented as of this encounter Visit Diagnoses Not on filedocumented in this encounter Care Teams Entomology Teacher Relationship Specialty Start Date End Date None, Pcp PCP - General Property Custodian 03/29/20 12/31/20 [address] [place] [address] documented as of this encounter
--- OUTSIDE RECORDS SUMMARY | 2021-12-18 08:02 | XMS_ITS | Encounter Summary ---
:1940 Author Organization [facility] Address [address] [place] [address] Care Team Providers Name Role Phone None, Pcp Primary Care Provider Unavailable Encounter Details Date Type Department Care Team Description 08/27/2020 Orders Only Elisha Young Colon cancer screening (Prim irvin Dx); [address] MD Dontrell Anemia, unspecified type [place], [place] [phone] [facility] [address] [place] [address] Social History Tobacco Use Types Packs/Day Years [...] type documented in this encounter Care Teams Commercial Center Manager Relationship Specialty Start Date End Date None, Pcp PCP - General Fruit Dryer 03/29/20 12/31/20 [address] [place] [address] documented as of this encounter
--- OUTSIDE RECORDS SUMMARY | 2021-12-18 08:02 | XMS_ITS | Encounter Summary ---
:1940 Author Organization [facility] Address [address] [place] [address] Care Team Providers Name Role Phone None, Pcp Primary Care Provider Unavailable Encounter Details Date Type Department Care Team Description 08/21/2020 Lab [place] Screening for deficiency ane elif; [address] Essential hypertension; [place], [place] [address] Diabetes mellitus screening; [phone] Hyperlipidemia, unspecified hyperlipidemia type Social History Tobacco [...] CDT [facility] >60 08/21/2020 [facility] [place] GFR 12:57 PM CDT [facility] Comment: [...] Organization Address City/State/ZIP Code Phon e Number [facility] [address] [place] [address] (ABNORMAL) CBC Branch Off w/Diff (08/21/2020 10:31 AM CDT) Patholo gist Method Time Signature WBC 6.7 3.5 - 10.5 08/21/2020 [facility] [place] K/uL 10:41 AM CDT [place] RBC 4.50 4.30 - 08/21/2020 [facility] [place] 5.70 M/uL 10:41 AM CDT [place] Hemoglobin 12.8 (L) 13.5 - 08/21/2020 [facility] [place] 17.5 g/dL 10:41 AM CDT [place] Hematocrit 39.8 38.0 - 08/21/2020 [facility] [place] 50.0 % 10:41 AM CDT [place] Platelets 218 150 - 450 08/21/2020 [facility] [place] K/uL 10:41 AM CDT [place] MCV 88.4 81.2 - 08/21/2020 [facility] [place] 95.1 fL 10:41 AM CDT [place] MCH 28.4 26.0 - 08/21/2020 [facility] [place] 32.0 pg 10:41 AM CDT [place] MCHC 32.2 32.0 - 08/21/2020 [facility] [place] 36.0 g/dL 10:41 AM CDT [place] RDW 14.7 11.8 - 08/21/2020 [facility] [place] 15.6 % 10:41 AM CDT [place] Lymphocytes % 27.0 % 08/21/2020 [facility] [place] 10:41 AM CDT [place] Mid-size Cells 7.5 % 08/21/2020 [facility] [place] 10:41 AM CDT [place] Granulocytes/Urszula 65.5 % 08/21/2020 [facility] [place] trophils 10:41 AM CDT [place] Lymphocytes 1.8 0.9 - 2.9 08/21/2020 [facility] [place] Absolute K/uL 10:41 AM CDT [place] MIDS Absolute 0.5 0.4 - 1.5 08/21/2020 [facility] [place] K/uL 10:41 AM CDT [place] Granulocytes/Urszula 4.4 1.7 - 7.0 08/21/2020 [facility] [place] trophils K/uL 10:41 AM CDT [place] Absolute Specimen Anatomical Collection Method Collection Time Receive d Time (Source) Location / / Volume Laterality 08/21/2020 10:31 08/21/2020 AM CDT 10:35 AM CDT D. Dontrell Woodward MD LAB BLOOD ORDERABLES Performing Organization Address City/State/ZIP Code Phon e Number [facility] [place] [address] [place] [address] (ABNORMAL) Lipid panel (08/21/2020 10:31 AM CDT) athologist Signature Cholesterol 166 0 - 199 08/22/2020 [facility] mg/dL 2:11 PM CDT [facility] Comment: Recommended by National Cholesterol Education Program (ATP III) -------- Cholesterol Ranges -------- <200 ?Desirable 200-239 ? Borderline high >=240 ? High Triglycerides 167 (H) 0 - 149 mg/dL 08/22/2020 2:11 PM CDT [facility] Comment: -------- TRIG Ranges -------- <150 ?Normal 150-199 ? Borderline high 200-499 ? High >=500 ? Very high HDL 37 (L) 40 - 250 mg/dL 08/22/2020 2:11 PM CDT [facility] Comment: -------- HDL Ranges -------- <40 ?Low 40-59 ?Normal >=60 ? Optimal LDL Calculated 96 0 - 99 mg/dL 08/22/2020 2:11 PM CDT [facility] Comment: -------- LDL Ranges -------- <100 ? Optimal 100-129 ?Near optimal/above op timal 130-159 ?Borderline high 160-189 ?High >=190 ?Very high Specimen Anatomical Collection Method Collection Time Receive d Time (Source) Location / / Volume Laterality Blood 08/21/2020 10:31 08/22/2020 AM CDT 12:50 PM CDT D. Dontrell Woodward MD LAB BLOOD ORDERABLES Performing Organization Address City/State/ZIP Code Phon e Number [facility] [address] [place] [address] (ABNORMAL) Basic metabolic panel (08/21/2020 10:31 AM CDT) P athologist Signature Sodium 142 135 - 145 08/21/2020 [facility] [place] mmol/L 12:57 PM CDT [place] Potassium 3.8 3.5 - 5.1 08/21/2020 [facility] [place] mmol/L 12:57 PM CDT [place] Comment: . Chloride 105 98 - 107 mmol/L 08/21/2020 12:57 PM CDT [facility] [place] Comment: . CO2 27 22 - 31 mmol/L 08/21/2020 12:57 PM CDT [facility] [place] Comment: . Creatinine 1.0 0.6 - 1.4 mg/dL 08/21/2020 12:57 PM CDT [facility] [place] Comment: . BUN 9 5 - 25 mg/dL 08/21/2020 12:57 PM CDT [facility] [place] Comment: . Glucose 105 (H) 70 - 100 mg/dL 08/21/2020 12:57 PM [facility] [place] CDT Calcium, Total,S 8.7 8.4 - 10.2 mg/dL 08/21/2020 12:57 PM [facility] [place] CDT Comment: . Fasting? Yes 08/21/2020 10:35 AM CDT [facility] [place] Specimen Anatomical Collection Method Collection Time Receive d Time (Source) Location / / Volume Laterality Blood 08/21/2020 10:31 08/21/2020 AM CDT 10:35 AM CDT D. Dontrell Woodward MD LAB BLOOD ORDERABLES Performing Organization Address City/State/ZIP Code Phon e Number [facility] [place] [address] [place] [address] documented in this encounter Visit Diagnoses Diagnosis Screening for deficiency anemia Screening for other and unspecified defi ciency anemia Essential hypertension Unspecified essential hypertension Diabetes mellitus screening Screening for diabetes mellitus Hyperlipidemia, unspecified hyperlipidem ia type documented in this encounter Care Teams Lead Software Engineer Relationship Specialty Start Date End Date None, Pcp PCP - General Landing Gear Mechanic 03/29/20 12/31/20 [address] [place] [address] documented as of this encounter
--- OUTSIDE RECORDS SUMMARY | 2021-12-18 08:02 | XMS_ITS | Encounter Summary ---
:1940 Author Organization [facility] Address [address] [place] [address] Care Team Providers Name Role Phone Laila Loco APRN, NEURO UROLOGIST Primary Care Provider [phone] Encounter Details Date Type Department Care Team Description 11/16/2019 Lab [place] Diabetes mellitus screening; [address] Medication monitoring encoun [place], [place] [address] Social History Tobacco Use [...] AM CDT) athologist Signature Fasting? Yes 11/16/2019 [facility] 8:21 AM T [facility] Specimen Anatomical Collection Method Collection Time Receive d Time (Source) Location / / Volume Laterality 11/16/2019 8:19 AM 0 8:21 CDT AM CDT D. Dontrell Woodward MD LAB BLOOD ORDERABLES Performing Organization Address City/State/ZIP Code Phon e Number [facility] [address] [place] [address] Liver panel (11/16/2019 8:19 AM CDT) athologist Signature Total Protein 7.0 6.3 - 8.2 11/16/2019 [facility] g/dL 2:07 PM [facility] Albumin, Serum 4.1 3.5 - 5.0 11/16/2019 [facility] g/dL 2:07 PM [facility] Total Bilirubin 1.0 0.1 - 1.0 11/16/2019 [facility] mg/dL 2:07 PM [facility] Bilirubin, <0.1 0.0 - 0.3 11/16/2019 [facility] mg/dL 2:07 PM [facility] AST 25 8 - 48 U/L 11/16/2019 [facility] 2:07 PM [facility] Alkaline 116 38 - 128 11/16/2019 [facility] Phosphatase U/L 2:07 PM [facility] ALT (SGPT) 20 0 - 49 U/L 11/16/2019 [facility] 2:07 PM [facility] Specimen Anatomical Collection Method Collection Time Receive d Time (Source) Location / / Volume Laterality Blood 11/16/2019 8:19 AM 0 1:02 CDT PM CDT Elisha Woodward MD LAB BLOOD ORDERABLES Performing Organization Address City/State/ZIP Code Phon e Number [facility] [address] [place] [phone] (ABNORMAL) Glucose, fasting (11/16/2019 8:19 AM CDT) athologist Signature Glucose 107 (H) 70 - 100 11/16/2019 [facility] mg/dL 2:07 PM CDT [facility] Specimen Anatomical Collection Method Collection Time Receive d Time (Source) Location / / Volume Laterality Blood (Blood, 11/16/2019 8:19 AM 11/16/19 20 1:02 Venous) CDT PM CDT Elisha Woodward MD LAB BLOOD ORDERABLES Performing Organization Address City/[facility]/ZIP Code Phon e Number [facility] [address] [place] [address] documented in this encounter Visit Diagnoses Diagnosis Diabetes mellitus screening Screening for diabetes mellitus Medication monitoring encounter Encounter for therapeutic drug monitorin g documented in this encounter Care Teams Test Worker Relationship Specialty Start Date End Date Laila Loco APRN, NEURO UROLOGIST PCP - General 12/09/17 01/10/20 100 [facility] [place] [address] documented as of this encounter
--- OUTSIDE RECORDS SUMMARY | 2021-12-18 08:02 | XMS_ITS | Encounter Summary ---
:1940 Author Organization [facility] Address [address] [place] [address] Care Team Providers Name Role Phone Unavailable Primary Care Provider Unavailable Reason for Visit Reason Comments Med Refill Encounter Details Date Type Department Care Team Description 03/07/2020 Refill Wendy Pillai Gastroesophageal reflux [address] [facility] EMD Lara disease without esophagitis [place] [address] Social History Tobacco Use Types Packs/Day Years [...] - 03/07/2020 1:59 PM CST Please advise TIC EXTRUDING MACHINE OPERATOR Telephone Encounter - Ellen Delgado RN - 03/07/2020 1:38 PM CST Margarito hanna patient--please advise on appointment/refill TIC EXTRUDING MACHINE OPERATOR Telephone Encounter - Isabel Cardoso MA - [...] to assist patient with scheduling. Thank you! TIC EXTRUDING MACHINE OPERATOR documented in this encounter Plan of Treatment Not on filedocumented as of this encounter Visit Diagnoses Diagnosis Gastroesophageal reflux disease without esophagitis Esophageal reflux documented in this encounter
--- OUTSIDE RECORDS SUMMARY | 2021-12-18 08:02 | XMS_ITS | Encounter Summary ---
:1940 Author Organization [facility] Address [address] [place] [address] Care Team Providers Name Role Phone Elisha Woodward MD Primary Care Provider Encounter Details Date Type Department Care Team Description 07/05/2019 Telephone Margarito Love Laila Loco, [address] [place], [place], [place] [address] [phone] [place], [place] [address] Social History Tobacco Use [...] on filedocumented in this encounter Care Teams Mining Captain Relationship Specialty Start Date End Date Elisha Woodward MD PCP - General 01/01/[address] [place] [address] documented as of this encounter
--- OUTSIDE RECORDS SUMMARY | 2021-12-18 08:02 | XMS_ITS | Encounter Summary ---
:1940 Author Organization [facility] Address [address] [place] [address] Care Team Providers Name Role Phone Laila Loco APRN, IRA Primary Care Provider [phone] Encounter Details Date Type Department Care Team [...] on filedocumented in this encounter Care Teams Cat Hooker Relationship Specialty Start Date End Date Laila Loco, IT INSTRUCTOR, BONE WORKER PCP - General 12/09/17 01/10/20 100 [facility] [place] [address] documented as of this encounter
--- OUTSIDE RECORDS SUMMARY | 2021-12-18 08:02 | XMS_ITS | Encounter Summary ---
:1940 Author Organization [facility] Address [address] [place] [address] Care Team Providers Name Role Phone None, Pcp Primary Care Provider Unavailable Encounter Details Date Type Department Care Team Description 08/27/2020 Orders Only [place] Elisha Woodward MD [address] [facility] [address] [place], [place] [address] [place], [place] [phone] [address] (Wo rk) Social History Tobacco Use Types [...] on filedocumented in this encounter Care Teams Urban Redevelopment Specialist Relationship Specialty Start Date End Date None, Pcp PCP - General Manager Multimedia 03/29/20 12/31/20 [address] [place] [address] documented as of this encounter
--- OUTSIDE RECORDS SUMMARY | 2021-12-18 08:02 | XMS_ITS | Encounter Summary ---
:1940 Author Organization [facility] Address [address] [place] [address] Care Team Providers Name Role Phone Laila Loco APRN, HEAVY EQUIPMENT OPERATOR APPRENTICE Primary Care Provider [phone] Reason for Visit Reason Comments Follow-up Coughing still and not eatin g Encounter Details Date Type Department Care Team Description 07/06/2019 Office Visit [place] Laila Loco Decreased appetite [address] M, IRA WARD (Primary Dx) [place], [place] 100 [facility] [address] [place] [address] Social History Tobacco Use Types Packs/Day Years [...] Comments Blood Pressure 124/66 07/06/2019 8:34 AM FLAT GRINDER OPERATOR Pulse 68 07/06/2019 8:34 AM FLAT GRINDER OPERATOR Temperature 35.7 ??C (96.2 ??F) 07/06/2019 8:34 AM FLAT GRINDER OPERATOR Respiratory Rate 16 07/06/2019 8:34 AM FLAT GRINDER OPERATOR Oxygen Saturation 93% 07/06/2019 8:34 AM FLAT GRINDER OPERATOR Inhaled Oxygen Concentration - - Weight 64.9 kg (143 lb) 07/06/2019 8:34 AM FLAT GRINDER OPERATOR Height 167.6 cm (5' 5.98) 07/06/2019 8:34 AM FLAT GRINDER OPERATOR Body Mass Index 23.09 07/06/2019 8:34 AM FLAT GRINDER OPERATOR documented in this encounter Patient Instructions Patient InstructionsChsulema Loco APRN, CNP - 07/06/2019 8:40 AM FLAT GRINDER OPERATOR Hold Calcium supplement One serving of coffee per day GRINDER OPERATOR documented in this encounter Progress Notes Laila [...] AM Decreased appeti te Results for this FLAT GRINDER OPERATOR procedure are i n the results section. documented in this encounter Results X-ray abdomen 2 views (07/06/2019 9:35 AM FLAT GRINDER OPERATOR) Anatomical Region Laterality Modality Body Radiographic Imaging Specimen (Source) Anatomical Collection Method Collection Time Re ceived Time Location / / Volume Laterality 07/06/2019 9:35 AM FLAT GRINDER OPERATOR Impressions 07/06/2019 9:41 AM FLAT GRINDER OPERATOR IMPRESSION: Bowel gas pattern is nonobstructive. If there is a clinical need for additional imaging, CT scan could be con sidered. Narrative 07/06/2019 9:41 AM FLAT GRINDER OPERATOR INDICATION: decreased appetite COMPARISON: None available FINDINGS: [...] XR PROCEDURES C-reactive protein (07/06/2019 9:16 AM FLAT GRINDER OPERATOR) athologist Signature CRP 2.0 0.0 - 4.9 07/06/2019 [facility] mg/L 1:32 PM FLAT GRINDER OPERATOR [facility] Specimen Anatomical Collection Method Collection Time Receive d Time (Source) Location / / Volume Laterality Blood (Blood, 07/06/2019 9:16 AM 07/06/19 20 Venous) FLAT GRINDER OPERATOR 12:32 PM FLAT GRINDER OPERATOR Laila Loco APRN, CNP LAB BLOOD ORDERABLES Performing Organization Address City/[facility]/ZIP Code Phon e Number [facility] [address] [place] [address] (ABNORMAL) ESR-Sed rate (07/06/2019 9:16 AM FLAT GRINDER OPERATOR) athologist Signature Sed Rate 36 (H) 0 - 22 07/06/2019 [facility] mm/hr 1:40 PM FLAT GRINDER OPERATOR [facility] Specimen Anatomical Collection Method Collection Time Receive d Time (Source) Location / / Volume Laterality Blood (Blood, 07/06/2019 9:16 AM 07/06/19 20 Venous) FLAT GRINDER OPERATOR 12:32 PM FLAT GRINDER OPERATOR Laila Loco APRN, CNP LAB BLOOD ORDERABLES Performing Organization Address City/[facility]/ZIP Code Phon e Number [facility] [address] [place] [address] Lipase (07/06/2019 9:16 AM FLAT GRINDER OPERATOR) athologist Signature Lipase 85 23 - 300 07/06/2019 [facility] U/L 1:[address] [facility] Specimen Anatomical Collection Method Collection Time Receive d Time (Source) Location / / Volume Laterality Blood (Blood, 07/06/2019 9:16 AM 07/06/19 20 Venous) FLAT GRINDER OPERATOR 12:32 PM FLAT GRINDER OPERATOR Laila Loco APRN, CNP LAB BLOOD ORDERABLES Performing Organization Address [facility]/ZIP [facility] Phon e Number [facility] [address] [place] [address] (ABNORMAL) Amylase (07/06/2019 9:16 AM FLAT GRINDER OPERATOR) P athologist Signature Amylase 173 (H) 30 - 110 07/06/2019 [facility] U/L 1:[address] [facility] Specimen Anatomical Collection Method Collection Time Receive d Time (Source) Location / / Volume Laterality Blood (Blood, 07/06/2019 9:16 AM 07/06/19 20 Venous) FLAT GRINDER OPERATOR 12:32 PM FLAT GRINDER OPERATOR Laila Loco APRN, CNP LAB BLOOD ORDERABLES Performing Organization Address City/[facility] Code Phon e Number [facility] [address] [place] [phone] (ABNORMAL) Comprehensive metabolic panel (07/06/2019 9:16 AM FLAT GRINDER OPERATOR) Patholo gist Method Time Signature Total Protein 8.6 (H) 6.3 - 8.2 07/06/2019 [facility] g/dL 1:32 PM [facility] Albumin, Serum 4.5 3.5 - 5.0 07/06/2019 [facility] g/dL 1:32 PM [facility] Total Bilirubin 1.3 (H) 0.1 - 1.0 07/06/2019 [facility] mg/dL 1:32 PM [facility] AST 26 8 - 48 U/L 07/06/2019 [facility] 1:32 PM [facility] Alkaline 134 (H) 38 - 128 07/06/2019 [facility] Phosphatase U/L 1:32 PM [facility] ALT (SGPT) 21 0 - 49 U/L 07/06/2019 [facility] 1:32 PM [facility] Sodium 140 135 - 145 07/06/2019 [facility] mEq/L 1:32 PM [facility] Potassium 4.2 3.5 - 5.1 07/06/2019 [facility] mEq/L 1:32 PM [facility] Chloride 100 98 - 107 07/06/2019 [facility] mEq/L 1:32 PM [facility] CO2 28 22 - 31 07/06/2019 [facility] mmol/L 1:32 PM [facility] BUN 13 5 - 25 07/06/2019 [facility] mg/dL 1:32 PM [facility] Creatinine 1.2 0.6 - 1.4 07/06/2019 [facility] mg/dL 1:32 PM [facility] Glucose 117 (H) 70 - 100 07/06/2019 [facility] mg/dL 1:32 PM [facility] Calcium, Total,S 9.7 8.4 - 10.2 07/06/2019 [facility] mg/dL 1:32 PM [facility] Fasting? Yes 07/06/2019 [facility] 9:21 AM [facility] Specimen Anatomical Collection Method Collection Time Receive d Time (Source) Location / / Volume Laterality Blood 07/06/2019 9:16 AM 0 FLAT GRINDER OPERATOR 12:32 PM FLAT GRINDER OPERATOR Laila Loco APRN, HEAVY EQUIPMENT OPERATOR APPRENTICE LAB BLOOD ORDERABLES Performing Organization Address City/State/ZIP Code Phon e Number [facility] [address] [place] [phone] CBC Branch Off w/Diff (07/06/2019 9:16 AM FLAT GRINDER OPERATOR) P athologist Signature WBC 7.1 3.5 - 10.5 07/06/2019 [facility] K/uL 9:33 AM FLAT GRINDER OPERATOR [place] RBC 5.12 4.30 - 07/06/2019 [facility] 5.70 M/uL 9:33 AM FLAT GRINDER OPERATOR [place] Hemoglobin 15.5 13.5 - 07/06/2019 [facility] 17.5 g/dL 9:33 AM FLAT GRINDER OPERATOR [place] Hematocrit 46.5 38.0 - 07/06/2019 [facility] 50.0 % 9:33 AM FLAT GRINDER OPERATOR [place] Platelets 242 150 - 450 07/06/2019 [facility] K/uL 9:33 AM FLAT GRINDER OPERATOR [place] MCV 90.8 81.2 - 07/06/2019 [facility] 95.1 fL 9:33 AM FLAT GRINDER OPERATOR [place] MCH 30.3 26.0 - 07/06/2019 [facility] 32.0 pg 9:33 AM FLAT GRINDER OPERATOR [place] MCHC 33.3 32.0 - 07/06/2019 [facility] 36.0 g/dL 9:33 AM FLAT GRINDER OPERATOR [place] RDW 14.5 11.8 - 07/06/2019 [facility] 15.6 % 9:33 AM FLAT GRINDER OPERATOR [place] Lymphocytes % 19.8 18.0 - 07/06/2019 [facility] 45.0 % 9:33 AM FLAT GRINDER OPERATOR [place] Mid-size Cells 9.1 3.3 - 10.1 07/06/2019 [facility] % 9:33 AM FLAT GRINDER OPERATOR [place] Granulocytes/Urszula 71.1 45.8 - 07/06/2019 [facility] trophils 73.7 % 9:33 AM FLAT GRINDER OPERATOR [place] Lymphocytes 1.4 0.9 - 2.9 07/06/2019 [facility] Absolute K/uL 9:33 AM FLAT GRINDER OPERATOR [place] MIDS Absolute 0.6 0.2 - 0.8 07/06/2019 [facility] K/uL 9:33 AM FLAT GRINDER OPERATOR [place] Granulocytes/Urszula 5.1 2.1 - 8.7 07/06/2019 [facility] trophils K/uL 9:33 AM FLAT GRINDER OPERATOR [place] Absolute Specimen Anatomical Collection Method Collection Time Receive d Time (Source) Location / / Volume Laterality Blood 07/06/2019 9:16 AM 0 9:21 FLAT GRINDER OPERATOR AM FLAT GRINDER OPERATOR Laila Loco APRN, HEAVY EQUIPMENT OPERATOR APPRENTICE LAB BLOOD ORDERABLES Performing Organization Address City/State/ZIP Code Phon e Number [facility] [place] [address] [place] [address] documented in this encounter Visit Diagnoses Diagnosis Decreased appetite - Primary Anorexia documented in this encounter Care Teams Floor Worker [place] Relationship Specialty Start Date End Date Laila Loco APRN, HEAVY EQUIPMENT OPERATOR APPRENTICE PCP - General 12/09/17 01/10/[address] [place] [address] [place] [id number] documented as of this encounter
--- OUTSIDE RECORDS SUMMARY | 2021-12-18 08:02 | XMS_ITS | Encounter Summary ---
:[address] [facility] Address [address] [place] [address] Care Team Providers Name Role Phone None, Pcp Primary Care Provider Unavailable Encounter Details Date Type Department Care Team Description 08/29/2020 Lab [place] Colon cancer screening; [address] [...] type documented in this encounter Care Teams Teacher Education Instructor Relationship Specialty Start Date End Date None, Pcp PCP - General Terminal Superintendent 03/29/20 12/31/20 [address] [place] [address] documented as of this encounter
--- OUTSIDE RECORDS SUMMARY | 2021-12-18 08:02 | XMS_ITS | Encounter Summary ---
:[address] 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 Rosenthal for his med refills, since Rajan Claudy is no longer with [facility]. Pt is going to be out soon and is wondering if Dr. Rosenthal could fill this until he can get in to see her. Please advise. 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
--- OUTSIDE RECORDS SUMMARY | 2021-12-18 08:02 | XMS_ITS | Encounter Summary ---
:1940 Author Organization [facility] Address [address] [place] [address] Care Team Providers Name Role Phone None, Pcp Primary Care Provider Unavailable Reason for Visit Reason Onset Date Comments Labs Only 08/30/2020 Encounter Details Date Type Department Care Team Description 08/30/2020 Telephone [place] None, Pcp Labs Only [address] [place], [place] [address] [place] [address] Social History Tobacco Use Types [...] You may call the patient back to package pick up this kit. Telephone Encounter - Melinda Le MA - 08/30/2020 3:27 PM CDT The hospital lab called and stated that the patient's IFOBT had to be cancelled due to the specimen being too thick. Please replace order and than the patient can be called to package pick up another kit. documented in this encounter Plan of Treatment Not on filedocumented as of this encounter Results (ABNORMAL) Immunochemical Fecal Occult Blood (iFOBT)- outpatient (09/01/2020 8:10 AM CDT) [facility] gist Method Time Signature Immunochemical POSITIVE Negative 09/01/2020 [place] Fecal Occult (A) 1:09 PM CDT [facility] LABORATORY Specimen Anatomical Collection Method Collection Time Receive d Time (Source) Location / / Volume Laterality Stool 09/01/2020 8:10 AM CDT 12:36 PM CDT Elisha Woodward MD LAB BODY FLUIDS AND STOOLS O RDERABLES Performing Organization Address City/State/ZIP Code Phon e Number [facility] [address] [place] [address] documented in this encounter Visit Diagnoses Diagnosis Anemia, unspecified type - Primary documented in this encounter Care Teams House Carpenter Relationship Specialty Start Date End Date None, Pcp PCP - General Wood Barker 03/29/20 12/31/20 [address] [place] [address] documented as of this encounter
--- OUTSIDE RECORDS SUMMARY | 2021-12-18 08:02 | XMS_ITS | Encounter Summary ---
:1940 Author Organization [facility] Address [address] [place] [address] Care Team Providers Name Role Phone None, Pcp Primary Care Provider Unavailable Encounter Details Date Type Department Care Team Description 09/01/2020 Lab [place] Anemia, unspecified type [address] [place], [place] [address] Social History Tobacco Use [...] Blood (iFOBT)- outpatient (09/01/2020 8:10 AM CDT) [facility] gist Method Time Signature Immunochemical POSITIVE Negative 09/01/2020 [place] Fecal Occult (A) 1:09 PM CDT [facility] Blood [place] [facility] Specimen Anatomical Collection Method Collection Time Receive d Time (Source) Location / / Volume Laterality Stool 09/01/2020 8:10 AM CDT 12:36 PM CDT D. Dontrell Woodward MD LAB BODY FLUIDS AND STOOLS O RDERABLES Performing Organization Address City/State/ZIP Code Phon e Number [facility] [address] [place] [address] documented in this encounter Visit Diagnoses Diagnosis Anemia, unspecified type documented in this encounter Care Teams Emblem Fuser Tender Relationship Specialty Start Date End Date None, Pcp PCP - General Certified Control Systems Technician 03/29/20 12/31/[address] [place] [address] documented as of this encounter
--- OUTSIDE RECORDS SUMMARY | 2021-12-18 08:02 | XMS_ITS | Encounter Summary ---
:1940 Author Organization [facility] Address [address] [place] [address] Care Team Providers Name Role Phone Laila Loco APRN, TINTER PHOTOGRAPH Primary Care Provider [phone] Reason for Visit Reason Onset Date Comments Shoulder pain 11/11/2019 Encounter Details Date Type Department Care Team Description 11/11/2019 Telephone [place] Elisha Woodward MD Shoulder pain [address] [place], [place] [address] [place], [place] [phone] (Wo rk) Social History Tobacco Use Types [...] with a nurse. Please call Pt at [phone] to advise. documented in this encounter Plan [...] Organization Address City/State/ZIP Code Phon e Number [facility] [address] [place] [address] Liver panel (11/16/2019 8:19 AM CDT) P athologist Signature Total Protein 7.0 6.3 - 8.2 11/16/2019 [place] g/dL 2:07 PM CDT [facility] Albumin, Serum 4.1 3.5 - 5.0 11/16/2019 [place] g/dL 2:07 PM CDT [facility] Total Bilirubin 1.0 0.1 - 1.0 11/16/2019 [place] mg/dL 2:07 PM [facility] Bilirubin, <0.1 0.0 - 0.3 11/16/2019 [place] Direct mg/dL 2:07 PM [facility] AST 25 8 - 48 U/L 11/16/2019 [place] 2:07 PM [facility] Alkaline 116 38 - 128 11/16/2019 [place] Phosphatase U/L 2:07 PM [facility] ALT (SGPT) 20 0 - 49 U/L 11/16/2019 [place] 2:07 PM [facility] Specimen Anatomical Collection Method Collection Time Receive d Time (Source) Location / / Volume Laterality Blood 11/16/2019 8:19 AM 0 1:02 CDT PM CDT D. Dontrell Woodward MD LAB BLOOD ORDERABLES Performing Organization Address City/State/ZIP Code Phon e Number [facility] [address] [place] [address] documented in this encounter Visit Diagnoses Diagnosis Diabetes mellitus screening - Primary Screening for diabetes mellitus Medication monitoring encounter Encounter for therapeutic drug monitorin g documented in this encounter Care Teams Counseling Services Director Relationship Specialty Start Date End Date Laila Loco, SUBMARINE WORKER, TINTER PHOTOGRAPH PCP - General 12/09/17 01/10/[address] [place] [address] documented as of this encounter
--- OUTSIDE RECORDS SUMMARY | 2021-12-18 08:02 | XMS_ITS | Encounter Summary ---
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, unspecified vessel or lesion type, unspecified whether mo[place] or transplanted heart; [place] [address] Immunization due; [phone] [place] Excessive cerumen in ear canal, [place] [address] Social History Tobacco Use Types Packs/Day Years [...] Comments Blood Pressure 140/80 03/29/2020 10:39 AM [facility] Pulse 94 03/29/2020 10:39 AM [facility] Temperature 37 ??C (98.6 ??F) 03/29/2020 10:39 AM [facility] Respiratory Rate 16 03/29/2020 10:39 AM [facility] Oxygen Saturation 91% 03/29/2020 10:39 AM [facility] Inhaled Oxygen Concentration - - Weight 70.5 kg (155 lb 6.4 oz) 03/29/2020 10:39 AM [facility] Height 167.4 cm (5' 5.91) 03/29/2020 10:39 AM [facility] Body Mass Index 25.15 03/29/2020 10:39 AM [facility] documented in this encounter Progress Notes Elisha [...] though he also sees providers at the [facility] site here in [place]. 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 Just my own personal review SMOKING QUIT [...] he was working he worked in the [employer] business he has been for 52 years [...] unspecified vessel or lesion type, unspecified whether moapa or transplanted heart - nitroglycerin (NITROSTAT) 0.4 [...] prescription for Debrox solution that he can picker tender helper at his local pharmacy. Returnas needed. [facility] documented in this encounter Miscellaneous Notes Addendum Note - Kathleen Pruitt RN - 03/29/2020 10:40 AM [facility] Addended by: KATHLEEN PRUITT on: 03/31/2020 09:15 AM Modules accepted: Orders [facility] Addendum Note - Kathleen Pruitt RN - 03/29/2020 10:40 AM [facility] Addended by: KATHLEEN PRUITT on: 03/31/2020 09:47 AM Modules accepted: Orders [facility] documented in this encounter Plan of Treatment Scheduled Orders Name Type Priority Associated Diagnoses Order S chedule Ear cerumen removal Procedures Routine Excessive cerumen in 1 Occurrences starting ear canal, bilateral 020 until 03/31/2021 documented as of this encounter Visit Diagnoses Diagnosis Bilateral impacted cerumen - Primary Impacted cerumen 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
--- OUTSIDE RECORDS SUMMARY | 2021-12-18 08:02 | XMS_ITS | Encounter Summary ---
:1940 Author Organization [facility] Address [address] [place] [address] Care Team Providers Name Role Phone Laila Loco APRN, UNIVERSITY SERVICES PROGRAM ASSOCIATE Primary Care Provider [phone] Reason for Visit Reason Onset Date Comments Shoulder pain 11/10/2019 Encounter Details Date Type Department Care Team Description 11/10/2019 Telephone [place] Elisha Woodward MD Shoulder pain [address] [place], [place] [address] [place], [place] [phone] (Wo rk) Social History Tobacco Use Types [...] medications. Please call his cell phone at [phone]. documented in this encounter Plan of Treatment Not on filedocumented as of this encounter Visit Diagnoses Not on filedocumented in this encounter Care Teams Fish House Worker Relationship Specialty Start Date End Date Laila Loco, FURNITURE REPAIR TECHNICIAN, UNIVERSITY SERVICES PROGRAM ASSOCIATE PCP - General 12/09/17 01/10/20 [address] [facility] [place] [address] documented as of this encounter
--- OUTSIDE RECORDS SUMMARY | 2021-12-18 08:02 | XMS_ITS | Encounter Summary ---
:1940 Author Organization [facility] Address [address] [place] [address] Care Team Providers Name Role Phone Laila Loco SUPERVISOR OVENS, TUBE MILL OPERATOR Primary Care Provider [phone] Reason for Visit Reason Onset Date Comments refill medication 09/02/2019 Encounter Details Date Type Department Care Team Description 09/02/2019 [place]phone [place], refill medication [address] SUPERVISOR OVENS, [place], [place] [address] [address] [facility] [phone] [place], [place] [address] Social History Tobacco Use [...] CDT Pt is at pharmacy wanting to picking machine operator RX Telephone Encounter - Ellen Delgado RN - 09/02/2019 10:27 AM CDT Pt is asking for Pantoprazole to be renewed, last visit 09/2018 shows he was not taking. Pt would like 90 day supply. Pt is on his way to pharmacy now. Pt had to change pharmacy to [facility] dueto his insurance. please advise on renewal Telephone Encounter - Kanwal Zarco - 09/02/2019 9:43 AM CDT Patient is on his way to [facility] pharmacy in [facility]. (he can not use the [place] pharmacy, his insurance changed) He needs his acid reflux medication. He needs this prescription send as soon aspossible. He is asking to talk to a nurse too! [phone]. documented in this encounter Plan of Treatment Not on filedocumented as of this encounter Visit Diagnoses Diagnosis Gastroesophageal reflux disease without esophagitis Esophageal reflux documented in this encounter Care Teams Photographic Reproduction Technician Relationship Specialty Start Date End Date Laila Loco APRN, TUBE MILL OPERATOR PCP - General 12/09/17 01/10/[address] [place] [address] documented as of this encounter
--- OUTSIDE RECORDS SUMMARY | 2021-12-18 08:02 | XMS_ITS | Encounter Summary ---
:1940 Author Organization [facility] Address [address] [place] [address] Care Team Providers Name Role Phone None, Pcp Primary Care Provider Unavailable Reason for Visit Reason Comments Wants cholesterol checked Encounter Details Date Type Department Care Team Description 08/21/2020 Office Visit Elisha Young Hyperlipidemia, unspecified hyperlipidemia type (Primary Dx); [address] [place] Screening for deficiency anemia; [place] [address] Essential h ypertension; [address] [place] [address] Diabetes mellitus screening [phone] [place] [address] Social History Tobacco Use Types Packs/Day Years [...] on Zetia 10 mg daily from his school bus dispatcher. His other medicationsinclude a small amount of [...] Signature Sodium 142 135 - 145 08/21/2020 [facility] [place] mmol/L 12:57 PM CDT [place] Potassium 3.8 3.5 - 5.1 08/21/2020 [facility] [place] mmol/L 12:57 PM CDT [place] Comment: . Chloride 105 98 - 107 mmol/L 08/21/2020 12:57 PM CDT [facility] [place] Comment: . CO2 27 22 - 31 mmol/L 08/21/2020 12:57 PM CDT [facility] [place] Comment: . Creatinine 1.0 0.6 - 1.4 mg/dL 08/21/2020 12:57 PM CDT [facility] [place] Comment: . BUN 9 5 - 25 mg/dL 08/21/2020 12:57 PM CDT [facility] [place] Comment: . Glucose 105 (H) 70 - 100 mg/dL 08/21/2020 12:57 PM [facility] [place] CDT Calcium, Total,S 8.7 8.4 - 10.2 mg/dL 08/21/2020 12:57 PM [facility] [place] CDT Comment: . Fasting? Yes 08/21/2020 10:35 AM CDT [facility] [place] Specimen Anatomical Collection Method Collection Time Receive d Time (Source) Location / / Volume Laterality Blood 08/21/2020 10:31 08/21/2020 AM CDT 10:35 AM CDT D. Dontrell Woodward MD LAB BLOOD ORDERABLES Performing Organization Address City/State/ZIP Code Phon e Number [facility] [place] [address] [place] [address] (ABNORMAL) Lipid panel (08/21/2020 10:31 AM CDT) athologist Signature Cholesterol 166 0 - 199 08/22/2020 [facility] mg/dL 2:11 PM CDT [facility] Comment: Recommended by National Cholesterol Education Program (ATP III) -------- Cholesterol Ranges -------- <200 ?Desirable 200-239 ? Borderline high >=240 ? High Triglycerides 167 (H) 0 - 149 mg/dL 08/22/2020 2:11 PM CDT [facility] Comment: -------- TRIG Ranges -------- <150 ?Normal 150-199 ? Borderline high 200-499 ? High >=500 ? Very high HDL 37 (L) 40 - 250 mg/dL 08/22/2020 2:11 PM CDT [facility] Comment: -------- HDL Ranges -------- <40 ?Low 40-59 ?Normal >=60 ? Optimal LDL Calculated 96 0 - 99 mg/dL 08/22/2020 2:11 PM CDT [facility] Comment: -------- LDL Ranges [...] [facility] [address] [place] [address] documented in this encounter Visit Diagnoses Diagnosis Hyperlipidemia, unspecified hyperlipidem ia type - Primary Screening for deficiency anemia Screening for other and unspecified defi ciency anemia Essential hypertension Unspecified essential hypertension Diabetes mellitus screening Screening for diabetes mellitus documented in this encounter Care Teams Facsimile Operator Relationship Specialty Start Date End Date None, Pcp PCP - General Construction Controller 03/29/20 12/31/20 [address] [place] [address] documented as of this encounter
--- OUTSIDE RECORDS SUMMARY | 2021-12-18 08:02 | XMS_ITS | Encounter Summary ---
:1940 Author Organization [facility] Address [address] [place] [address] Care Team Providers Name Role Phone None, Pcp Primary Care Provider Unavailable Reason for Referral Consultation (Routine) - Closed Specialty Diagnoses / Procedures Referred By Contact Refer red To Contact Otolaryngology Diagnoses Impacted cerumen of left ear Aydin Calix MD Ear Nose Throat [address] [place], [place] [phone] Referral ID Status Reason Start Date Expiration Date Visits V isits Requested Authorized [id number] Closed Specialty 04/04/2020 04/04/2021 1 1 Services Required Scheduling Instructions Please call the ENT Non Destructive Testing Scientist desk at ext. [phone] to schedule an appointment. FINANCIAL COUNSELOR Reason for Visit Reason Comments Ear Problem Follow up from last week, rhonda villaseñor Encounter Details Date Type Department Care Team Description 04/04/2020 Office Visit Aydin Gil, Impacted cerumen of [address] left ear (Primary Dx) [place], [place] [address] [place] [address] [place], [place] [phone] [address] Social History Tobacco Use Types Packs/Day Years [...] Comments Blood Pressure 128/72 04/04/2020 9:55 AM PEER FINANCIAL COUNSELOR Pulse 69 04/04/2020 9:55 AM PEER FINANCIAL COUNSELOR Temperature 36.9 ??C (98.4 ??F) 04/04/2020 9:55 AM PEER FINANCIAL COUNSELOR Respiratory Rate 16 04/04/2020 9:55 AM PEER FINANCIAL COUNSELOR Oxygen Saturation 96% 04/04/2020 9:55 AM PEER FINANCIAL COUNSELOR Inhaled Oxygen Concentration - - Weight 70 kg (154 lb 6.4 oz) 04/04/2020 9:55 AM PEER FINANCIAL COUNSELOR Height - - Body Mass Index 24.99 03/29/2020 10:39 AM PEER FINANCIAL COUNSELOR documented in this encounter Patient Instructions Patient [...] Follow these instructions at home: ?? Take [id number] and prescription medicines only as told by [...] clean them according to instructions from the stocking and box shop supervisor and your health care provider. Contact a [...] 05/29/2005 Document Revised: 04/02/2018 Document Reviewed: 07/02/2017 [employer] Interactive Patient Education ?? 2020 [employer]. FINANCIAL COUNSELOR documented in this encounter Progress Notes Aydin [...] improve. Note created using voice dictation software. FINANCIAL COUNSELOR documented in this encounter Plan of Treatment Scheduled Referrals Name Type Priority Associated Order Schedule Diagnoses Ambulatory referral Outpatient Referral Routine Impacted cerum en of Ordered: to ENT left ear 04/04/2020 documented as of this encounter Visit Diagnoses Diagnosis Impacted cerumen of left ear - Primary Impacted cerumen documented in this encounter Care Teams Golf Ball Trimmer Relationship Specialty Start Date End Date None, Pcp PCP - General Investor Relations Analyst 03/29/20 12/31/[address] [place] [phone] documented as of this encounter
--- OUTSIDE RECORDS SUMMARY | 2021-12-18 08:02 | XMS_ITS | Encounter Summary ---
:1940 Author Organization [facility] Address [address] [place] [address] Care Team Providers Name Role Phone Laila Loco TECHNICAL DOCUMENT WRITER, OPTOMETRIST ASSISTANT Primary Care Provider [phone] Encounter Details Date Type Department Care Team Description 07/06/2019 Orders Only [place] Laila Loco Constipation, [address] M, TECHNICAL DOCUMENT WRITER, OPTOMETRIST ASSISTANT unspecified [place], [place] [address] constipation type [address] [place] [address] (Primary Dx) [phone] Social History Tobacco Use Types Packs/Day Years [...] Primary documented in this encounter Care Teams Sheet Metal Layout Worker Relationship Specialty Start Date End Date Laila Loco, TECHNICAL DOCUMENT WRITER, OPTOMETRIST ASSISTANT PCP - General 12/09/17 01/10/20 100 [facility] [place] [address] documented as of this encounter
--- OUTSIDE RECORDS SUMMARY | 2021-12-18 08:02 | XMS_ITS | Encounter Summary ---
:1940 Author Organization [facility] Address [address] [place] [address] Care Team Providers Name Role Phone None, Pcp Primary Care Provider Unavailable Reason for Visit Reason Onset Date Comments Schedule ENT 04/05/2020 Encounter Details Date Type Department Care Team Description 04/05/2020 Telephone [facility] [place], Brendon Arceo MD Schedule ENT [address] [place] [address] Social History Tobacco Use Types Packs/Day Years [...] an appointment with ENT preferably Dr. Haney RUCTIONAL COACH documented in this encounter Plan of Treatment Not on filedocumented as of this encounter Visit Diagnoses Not on filedocumented in this encounter Care Teams Product Management Manager Relationship Specialty Start Date End Date None, Pcp PCP - General Claim Approver 03/29/20 12/31/20 [address] [place] [address] documented as of this encounter
--- OUTSIDE RECORDS SUMMARY | 2021-12-18 08:03 | XMS_ITS | Encounter Summary ---
:1940 Author Organization [facility] Address [address] [place] [address] Care Team Providers Name Role Phone Laila Loco BUSINESS SUPPORT, COMPLEX MANAGER Primary Care Provider [phone] Reason for Visit Reason Onset Date Comments phone call 08/17/2018 Encounter Details Date Type Department Care Team Description 08/17/2018 Telephone [place] Laila Loco, phone call [address] BUSINESS SUPPORT, COMPLEX MANAGER [place], [place] [address] [address] [address] [facility] [phone] [place], [place] [address] Social History Tobacco Use [...] on filedocumented in this encounter Care Teams Account Developer Relationship Specialty Start Date End Date Laila Loco APRN, COMPLEX MANAGER PCP - General 12/09/17 01/10/[address] [place] [address] [place] [address] documented as of this encounter
--- OUTSIDE RECORDS SUMMARY | 2021-12-18 08:03 | XMS_ITS | Encounter Summary ---
:[address] [facility] Address [address] [place] [address] Care Team Providers Name Role Phone Laila Loco CURING ROOM WORKER, COMPACTING MACHINE OPERATOR/TENDER Primary Care Provider [phone] Reason for Visit Reason Onset Date Comments Visit 08/21/2018 Encounter Details Date Type Department Care Team Description 08/21/2018 Telephone [place] Laila Loco, Visit [address] CURING ROOM WORKER, COMPACTING MACHINE OPERATOR/TENDER [place], [place] [address] [address] [facility] [address] [phone] [place], [place] [address] Social History Tobacco Use [...] this afternoon. You can reach Astrid at [phone]. documented in this encounter Plan of Treatment Not on filedocumented as of this encounter Visit Diagnoses Not on filedocumented in this encounter Care Teams Manager Contract Relationship Specialty Start Date End Date Laila Loco APRN, IRA PCP - General 12/09/17 01/10/[address] [place] [address] [place] [address] documented as of this encounter
--- OUTSIDE RECORDS SUMMARY | 2021-12-18 08:03 | XMS_ITS | Encounter Summary ---
:1940 Author Organization [facility] Address [address] [place] [address] Care Team Providers Name Role Phone Laila Loco APRN, IRA Primary Care Provider [phone] Reason for Visit Reason Comments Ear Fullness right ear Encounter Details Date Type Department Care Team Description 10/13/2018 Office Visit [place] Laila Loco Patient left without [address] M, IRA WARD being seen (Primary [place] [address] Dx) [address] [place] [address] Social History Tobacco Use Types Packs/Day Years [...] he left and had to leave to hop picker his grandchildren, and will return for an ear wash later this week. documented in this encounter Plan of Treatment Not on filedocumented as of this encounter Visit Diagnoses Diagnosis Patient left without being seen - Primar y Surgical or other procedure not carried out because of patient's decision documented in this encounter Care Teams Gatehouse Attendant Relationship Specialty Start Date End Date Laila Loco APRN, HAND LENS POLISHER PCP - General 12/09/17 01/10/20 100 [place] [address] documented as of this encounter
--- OUTSIDE RECORDS SUMMARY | 2021-12-18 08:03 | XMS_ITS | Encounter Summary ---
:1940 Author Organization [facility] Address [address] [place] [address] Care Team Providers Name Role Phone Laila Loco APRN, IRA Primary Care Provider [phone] Encounter Details Date Type Department Care Team [...] on filedocumented in this encounter Care Teams Display Trimmer Relationship Specialty Start Date End Date Laila Loco, KETTLE COOK, FOAMING MACHINE OPERATOR PCP - General 12/09/17 01/10/20 100 [facility] [place] [address] documented as of this encounter
--- OUTSIDE RECORDS SUMMARY | 2021-12-18 08:03 | XMS_ITS | Encounter Summary ---
:1940 Author Organization [facility] Address [address] [place] [address] Care Team Providers Name Role Phone Laila Loco BRIM STRETCHER, SCALE INSTALLER Primary Care Provider [phone] Reason for Visit Reason Onset Date Comments medication prior auth. 09/16/2018 Pantoprazole S[address] um [address]MG dr tablets Encounter Details Date Type Department Care Team Description 09/16/2018 Telephone [place] Laila Loco, medication prior auth. [address] [place] WARD (Pantoprazole Sodium [place], [place] [address] tablets) [phone] [place], [place] [address] Social History Tobacco Use [...] - 09/17/2019. Pharmacy is notified. PA # [id number]. Telephone Encounter - Destiny Cody MA - 09/16/2018 8:11 AM CDT Pantoprazole Sodium 40MG dr tablets BIN: [id number] PCN: [id number] GROUP: PLAN: [employer] PHONE: [phone] ID: [id number] PA completed per [facility]PL[facility], sent to plan. Rizzo: [id number]. documented in this encounter Plan of Treatment Not on filedocumented as of this encounter Visit Diagnoses Not on filedocumented in this encounter Care Teams Time Clerk Relationship Specialty Start Date End Date Laila Loco APRN, SCALE INSTALLER PCP - General 12/09/17 01/10/20 100 [place] [address] documented as of this encounter
--- OUTSIDE RECORDS SUMMARY | 2021-12-18 08:03 | XMS_ITS | Encounter Summary ---
:1940 Author Organization [facility] Address [address] [place] [address] Care Team Providers Name Role Phone Laila Loco APRN, GAMMA OPERATOR Primary Care Provider [phone] Reason for Visit Reason Comments Cerumen Impaction Encounter Details Date Type Department Care Team Description 10/15/2018 Office Visit [place] Laila Loco Impacted cerumen of [address] M, ED, IRA right ear (Primary [place] [address] Dx) [address] [place] [address] Social History Tobacco Use Types Packs/Day Years [...] his right ear, as recommended by his tactical/mobile watch officer. The patient has had decreased hearing. No [...] cerumen documented in this encounter Care Teams Personnel Counselor Relationship Specialty Start Date End Date Laila Loco APRN, CNP PCP - General 12/09/17 01/10/[address] [place] [address] documented as of this encounter
--- OUTSIDE RECORDS SUMMARY | 2021-12-18 08:03 | XMS_ITS | Encounter Summary ---
:1940 Author Organization [facility] Address [address] [place] [address] Care Team Providers Name Role Phone Laila Loco DIESEL TRAILER MECHANIC, STEEL DIVISION SUPERVISOR Primary Care Provider [phone] Encounter Details Date Type Department Care Team Description 10/14/2018 Telephone [place] Laila Loco, [address] DIESEL TRAILER MECHANIC, STEEL DIVISION SUPERVISOR [place] Love [place] [address] [address] [address] [facility] [address] [phone] [place], [place] [address] Social History Tobacco Use [...] seen on the schedule for 10/13/18 per [facility] protocol. Telephone Encounter - Laila Loco APRN, IRA - 10/14/2018 5:47 AM CDT Please remove my schedule from October 13, 2018. Thanks Rajan documented in this encounter Plan of Treatment Not on filedocumented as of this encounter Visit Diagnoses Not on filedocumented in this encounter Care Teams Forming Machine Upkeep Mechanic Helper Relationship Specialty Start Date End Date Laila Loco APRN, STEEL DIVISION SUPERVISOR PCP - General 12/09/17 01/10/[address] [place] [address] [place] [address] documented as of this encounter
--- OUTSIDE RECORDS SUMMARY | 2021-12-18 08:03 | XMS_ITS | Encounter Summary ---
:1940 Author Organization [facility] Address [address] [place] [address] Care Team Providers Name Role Phone Laila Loco APRN, CNP Primary Care Provider [phone] Reason for Referral Consultation (Routine) - Closed Specialty Diagnoses / Procedures Referred By Contact Refer red To Contact Neurology Diagnoses Memory deficit Laila Loco, [place] - Referrals IRA WARD [address] [facility] 100 [place] [address] [place] [address] Fax: Referral ID Status Reason Start Date Expiration Date Visits Requ ested Visits Authorized [id number] Closed 08/28/2018 08/29/2019 1 1 Reason for Visit Reason Comments Follow-up Encounter Details Date Type Department Care Team Description 08/28/2018 Office Visit Laila Wilson Follow up (Primary Dx); [address] M, IRA WARD Memory deficit [place], [place] 100 [facility] [address] [place] [address] Social History Tobacco Use Types Packs/Day Years [...] week ago. The patient was admitted to [place] on 08/15/2018, after he had an acute [...] left shoulder yesterday, by Dr. [facility] in [place], and he feels there has been some [...] ogical evaluation for his memory deficit at [facility] in [place]. The patient agrees and understands this plan of care. Laila Loco APRN, CNP documented in this encounter Plan of Treatment Scheduled Referrals Name Type Priority Associated Order Schedule Diagnoses Ambulatory External Outpatient Referral Routine Memory deficit Ordered: Referral 08/28/2018 documented as of this encounter Visit Diagnoses Diagnosis Follow up - Primary Memory deficit Memory loss documented in this encounter Care Teams Public Health Specialist Relationship Specialty Start Date End Date Laila Loco APRN, CNP PCP - General 12/09/17 01/10/20 100 [place] [address] documented as of this encounter
--- OUTSIDE RECORDS SUMMARY | 2021-12-18 08:03 | XMS_ITS | Encounter Summary ---
:1940 Author Organization [facility] Address [address] [place] [address] Care Team Providers Name Role Phone Laila Loco APRN, CARAMEL CUTTER MACHINE Primary Care Provider [phone] Reason for Visit Reason Comments EARS PLUGGED Encounter Details Date Type Department Care Team Description 04/02/2019 Office Visit Margarito Lvoe [place], Bilateral impacted [address] [place] (Primary Dx) [place], [place] [address] [place], [place] [address]e. [phone] [address] [place] [address] Social History Tobacco Use Types Packs/Day Years [...] Comments Blood Pressure 132/80 04/02/2019 10:41 AM FRUIT HARVEST WORKER Pulse 78 04/02/2019 10:41 AM FRUIT HARVEST WORKER Temperature 35.6 ??C (96.1 ??F) 04/02/2019 10:41 AM FRUIT HARVEST WORKER Respiratory Rate 16 04/02/2019 10:41 AM FRUIT HARVEST WORKER Oxygen Saturation 93% 04/02/2019 10:41 AM FRUIT HARVEST WORKER Inhaled Oxygen Concentration - - Weight 65.1 kg (143 lb 8.3 oz) 04/02/2019 10:41 AM FRUIT HARVEST WORKER Height 168 cm (5' 6.14) 04/02/2019 10:41 AM FRUIT HARVEST WORKER Body Mass Index 23.07 04/02/2019 10:41 AM FRUIT HARVEST WORKER documented in this encounter Progress Notes Greer Gar PA-C - 04/02/2019 11:00 AM CST Subjective Patient ID: Obey Vines is a 79 y.o. male. Chief Complaint Patient presents with ??? EARS PLUGGED HPI Patient is a 79-year-old white male who presents at the clinic today requesting to have his ears irrigated. 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 He was [...] irrigation completed by nursing staff. Follow-up with copper plate lithographer on a regular basis. Ears were irrigated by nursing staff for clearance. Patient had no concerns following irrigation. Will follow up on a as needed basis. T HARVEST WORKER documented in this encounter Miscellaneous Notes Assessment [...] irrigation completed by nursing staff. Follow-up with copper plate lithographer on a regular basis. T HARVEST WORKER documented in this encounter Plan of Treatment Not on filedocumented as of this encounter Visit Diagnoses Diagnosis Bilateral impacted cerumen - Primary Impacted cerumen documented in this encounter Care Teams Driver Starting Gate Relationship Specialty Start Date End Date Laila Loco APRN, CARAMEL CUTTER MACHINE PCP - General 12/09/17 01/10/20 100 [place] [address] documented as of this encounter
--- OUTSIDE RECORDS SUMMARY | 2021-12-18 08:03 | XMS_ITS | Encounter Summary ---
:1940 Author Organization [facility] Address [address] [place] [address] Care Team Providers Name Role Phone Laila Loco APRN, CNP Primary Care Provider [phone] Reason for Referral Consultation (Routine) - Closed Specialty Diagnoses / Procedures Referred By Contact Refer red To Contact Orthopedic Surgery Diagnoses Complete rotator cuff tear of left shoulder Laila Loco, [facility] IRA WARD [address] [facility] [address] [place] [address] Fax: Referral ID Status Reason Start Date Expiration Date Visits Requ ested Visits Authorized [id number] Closed 08/19/2018 08/20/2019 1 1 Scheduling Instructions The patient was started on Plavix for a non-STEMI TN and cannot proceed with any surgical interventions as he is on Plavi x times 1 year inquiring about the possibility of a steroid injection. 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 The patientreports he wore a neck brace for a period of 3-4 months following this incident. No recent neck injury. The patient reports his neck pain is likely worsening, and notices his neck pain when he is driving, as he has to frequently reposition himself. The patient would like to be referred to Dr. Dodson at [facility] in [place], for orthopedic consultation if recommended, as he [...] elevated troponin. The patient was transferred from [facility] to [facility], with an acute coronary non-ST elevation myocardial infraction. The patient was admitted to [facility] on 08/15/2018, and discharged on 08/16/2018, after [...] things. The patient acknowledges before his recent TN, he forgot to take his baby aspirin [...] DIAGNOSTICS: Reviewed the patient's MRI results from [facility] on 08/13/2018: Cervical neck MRI: 1. Moderate [...] this visit: Follow up (Primary) Atherosclerosis of [place] coronary artery without angina pectoris, unspecified whether [place] or transplanted heart - metoprolol succinate XL [...] he will be referred to orthopedics at [facility] in [place] for further evaluation. Will proceed with a bilateral carotid ultrasound, call with the results, and likely recommend referral to neurology to evaluated the memory concerns. The patient can take Tylenol for pain, avoiding the NSAID's. The patient will take calcium with Vitamin D twice daily. The patient and his both agree and understand this plan of care. Laila Loco APRN, WELDER SETTER RESISTANCE MACHINE documented in this encounter Plan of Treatment [...] Diagnosis Follow up - Primary Atherosclerosis of [place] coronary arter y without angina pectoris, unspecified whether [place] or transplanted heart Right carotid bruit Complete rotator cuff tear of left shoul moody Memory deficit Memory loss documented in this encounter Care Teams Switchboard Clerk Relationship Specialty Start Date End Date Laila Loco APRN, WELDER SETTER RESISTANCE MACHINE PCP - General 12/09/17 01/10/20 [address] [place] [address] documented as of this encounter
--- OUTSIDE RECORDS SUMMARY | 2021-12-18 08:03 | XMS_ITS | Encounter Summary ---
:1940 Author Organization [facility] Address [address] [place] [address] Care Team Providers Name Role Phone Laila Loco ANAESTHETIC TECHNICIAN, STRIPPING CUTTER AND WINDER Primary Care Provider Reason for Visit Reason Comments Med Refill Encounter Details Date Type Department Care Team Description 11/23/2018 Refill [place] Laila Loco, Gastroesophageal reflux [address] ANAESTHETIC TECHNICIAN, STRIPPING CUTTER AND WINDER disease without [place], [place] [address] esophagitis [address] [place] [address] Social History Tobacco Use Types Packs/Day Years [...] reflux documented in this encounter Care Teams Process Lead Relationship Specialty Start Date End Date Laila Loco, ANAESTHETIC TECHNICIAN, STRIPPING CUTTER AND WINDER PCP - General 12/09/17 01/10/20 100 [facility] [place] [address] documented as of this encounter
--- OUTSIDE RECORDS SUMMARY | 2021-12-18 08:03 | XMS_ITS | Encounter Summary ---
:[address] [facility] Address [address] [place] [address] Care Team Providers Name Role Phone Laila Loco SANDSTONE SPLITTER, AIRCRAFT MAGNETO MECHANIC Primary Care Provider [phone] Encounter Details Date Type Department Care Team Description 09/15/2018 Orders Only [place] Laila Loco, [address] SANDSTONE SPLITTER, AIRCRAFT MAGNETO MECHANIC YARI[place] Cruz [address] [address] [facility] [address] [phone] [place], [place] [address] Social History Tobacco Use [...] on filedocumented in this encounter Care Teams Typesetter Perforator Operator Relationship Specialty Start Date End Date Laila Loco APRN, AIRCRAFT MAGNETO MECHANIC PCP - General 12/09/17 01/10/20 [address] [facility] [address] [place] [address] documented as of this encounter
--- OUTSIDE RECORDS SUMMARY | 2021-12-18 08:03 | XMS_ITS | Encounter Summary ---
:[address] [facility] Address [address] [place] [address] Care Team Providers Name Role Phone Laila Loco APRN, QUALITY CONTROL LAB TECH Primary Care Provider [phone] Encounter Details Date Type Department Care Team Description 06/28/2019 Lab [place] Cough [address] [place], [place] [address] Social History Tobacco Use [...] AM Cough Res ults for this W/DIFF INVENTORY ASSISTANT procedure are i n the results section. documented in this encounter Results (ABNORMAL) CBC Branch Off w/Diff (06/28/2019 11:22 AM INVENTORY ASSISTANT) [facility]ist Method Time Signature WBC 7.1 3.5 - 10.5 06/28/2019 [facility] K/uL 1:04 PM INVENTORY ASSISTANT FALLS RBC 4.87 4.30 - 06/28/2019 [facility] 5.70 M/uL 1:04 PM INVENTORY ASSISTANT FALLS Hemoglobin 14.6 13.5 - 06/28/2019 [facility] 17.5 g/dL 1:04 PM INVENTORY ASSISTANT FALLS Hematocrit 44.6 38.0 - 06/28/2019 [facility] 50.0 % 1:04 PM INVENTORY ASSISTANT FALLS Platelets 221 150 - 450 06/28/2019 [facility] K/uL 1:04 PM INVENTORY ASSISTANT [place]ALLS MCV 91.6 81.2 - 06/28/2019 [facility] 95.1 fL 1:04 PM INVENTORY ASSISTANT [place]ALLS MCH 30.0 26.0 - 06/28/2019 [facility] 32.0 pg 1:04 PM INVENTORY ASSISTANT FALLS MCHC 32.7 32.0 - 06/28/2019 [facility] 36.0 g/dL 1:04 PM INVENTORY ASSISTANT FALLS RDW 14.5 11.8 - 06/28/2019 [facility] 15.6 % 1:04 PM INVENTORY ASSISTANT FALLS Lymphocytes % 18.9 18.0 - 06/28/2019 [facility] 45.0 % 1:04 PM INVENTORY ASSISTANT FALLS Mid-size Cells 5.6 3.3 - 10.1 06/28/2019 [facility] % 1:04 PM INVENTORY ASSISTANT FALLS Granulocytes/Urszula 75.5 (H) 45.8 - 06/28/2019 [facility] trophils 73.7 % 1:04 PM INVENTORY ASSISTANT FALLS Lymphocytes 1.3 0.9 - 2.9 06/28/2019 [facility] Absolute K/uL 1:04 PM INVENTORY ASSISTANT [place]ALLS MIDS Absolute 0.4 0.2 - 0.8 06/28/2019 [facility] K/uL 1:04 PM INVENTORY ASSISTANT FALLS Granulocytes/Urszula 5.4 2.1 - 8.7 06/28/2019 [facility] trophils K/uL 1:04 PM INVENTORY ASSISTANT FALLS Absolute Specimen Anatomical Collection Method Collection Time Receive d Time (Source) Location / / Volume Laterality Blood 06/28/2019 11:22 06/28/2019 AM INVENTORY ASSISTANT 11:22 AM INVENTORY ASSISTANT Laila Loco APRN, QUALITY CONTROL LAB TECH LAB BLOOD ORDERABLES Performing Organization Address City/State/ZIP Code Phon e Number [facility] [place] [address] [place] [id number] documented in this encounter Visit Diagnoses Diagnosis Cough documented in this encounter Care Teams Graphics Software Engineer Relationship Specialty Start Date End Date Laila Loco APRN, QUALITY CONTROL LAB TECH PCP - General 12/09/17 01/10/[address] [place] [address] [place] [address] documented as of this encounter
--- OUTSIDE RECORDS SUMMARY | 2021-12-18 08:03 | XMS_ITS | Encounter Summary ---
:1940 Author Organization [facility] Address [address] [place] [address] Care Team Providers Name Role Phone Laila Loco RUN LEAD, BUTCHER FISH Primary Care Provider [phone] Encounter Details Date Type Department Care Team Description 04/26/2019 Orders Only [place] Laila Loco, Pneumonia of right [address] RUN LEAD, BUTCHER FISH lower lobe due to [place], [place] [address] infectious organism [address] [place] [address] (HCC) (Primary Dx) [phone] Social History Tobacco Use Types Packs/Day Years [...] Primary documented in this encounter Care Teams Direct Support Professional Caregiver Relationship Specialty Start Date End Date Laila Loco, RUN LEAD, BUTCHER FISH PCP - General 12/09/17 01/10/[address] [place] [address] [place] [address] documented as of this encounter
--- OUTSIDE RECORDS SUMMARY | 2021-12-18 08:03 | XMS_ITS | Encounter Summary ---
:[address] [facility] Address [address] [place] [address] Care Team Providers Name Role Phone Laila Loco AD OPERATIONS SPECIALIST, ACCOUNT STRATEGIST Primary Care Provider [phone] Reason for Visit Reason Onset Date Comments medication 08/13/2018 Encounter Details Date Type Department Care Team Description 08/13/2018 Telephone [place] Laila Loco, medication [address] AD OPERATIONS SPECIALIST, ACCOUNT STRATEGIST [place], [place] [address] [address] [facility] [address] [phone] [place], [place] [address] Social History Tobacco Use [...] after they went to a trip in [place] at the end of July. The patient did fall in [place] but she denies hitting his head. She [...] on filedocumented in this encounter Care Teams Supervising Producer Relationship Specialty Start Date End Date Laila Loco APRN, ACCOUNT STRATEGIST PCP - General 12/09/17 01/10/[address] [place] [address] [place] [address] documented as of this encounter
--- OUTSIDE RECORDS SUMMARY | 2021-12-18 08:03 | XMS_ITS | Encounter Summary ---
:1940 Author Organization [facility] Address [address] [place] [address] Care Team Providers Name Role Phone Laila Loco APRN, IRA Primary Care Provider [phone] Encounter Details Date Type Department Care Team Description 04/22/2019 Lab [place] Prediabetes; [address] Screening PSA (prostate spec ific antigen); [place], [place] [address] Hyperlipidemia, unspecified hyperlipidemia type; [phone] Coronary artery 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 pectoris, unspecified vessel or lesion type, unspecified whether [place] or transplanted heart; Medication jose toring encounter; [...] 9:37 Hyperlipidemia, Results for this RATE AM TRENCH SHOVEL OPERATOR unspecified procedure are i n hyperlipidemia t ype the results Coronary artery section. 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 pectoris, unspecified vessel or lesion type, unspecified whether [place] or transplanted heart Medication monitoring encounter CBC BRANCH OFFICE Routine 04/22/2019 9:37 Other fatigue Results for this W/DIFF AM TRENCH SHOVEL OPERATOR Screening, anemia, procedure are in deficiency, iron the results section. PSA Routine 04/22/2019 9:37 Screening PSA Results for this AM TRENCH SHOVEL OPERATOR (prostate specific procedure are in antigen) the results section. HEMOGLOBIN A1C Routine 04/22/2019 9:37 Prediabetes Results fo r this AM TRENCH SHOVEL OPERATOR procedure are i n the results section. LIPID PANEL Routine 04/22/2019 9:37 Hyperlipidemia, Results f or this AM TRENCH SHOVEL OPERATOR unspecified procedure are i n hyperlipidemia type the resu lts section. COMPREHENSIVE Routine 04/22/2019 9:37 Hyperlipidemia, Results for this METABOLIC PANEL AM TRENCH SHOVEL OPERATOR unspecified procedure ar e in hyperlipidemia t ype the results Coronary artery section. 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 pectoris, unspecified vessel or lesion type, unspecified whether [place] or transplanted heart Medication monitoring encounter documented in this encounter Results (ABNORMAL) Glomerular filtration rate (GFR) (04/22/2019 9:37 AM TRENCH SHOVEL OPERATOR) P athologist Signature GFR 53 (A) 04/22/2019 [facility] 1:05 PM TRENCH SHOVEL OPERATOR CENTER [facility] >60 04/22/2019 [facility] [place] GFR 1:05 PM TRENCH SHOVEL OPERATOR [facility] Comment: GFR calculated from serum creatinine v alue Chronic Kidney Disease less than 60 mL/m in/1.73 m2 Kidney Failure less than 15 mL/min/1.73 m2 Note: effective 09/17/06 IDMS-Traceable MDRD Study Equation used. Specimen Anatomical Collection Method Collection Time Receive d Time (Source) Location / / Volume Laterality 04/22/2019 9:37 AM 9 9:37 TRENCH SHOVEL OPERATOR AM TRENCH SHOVEL OPERATOR Laila Loco SILVER SOLUTION MIXER, CHANNELING MACHINE OPERATOR LAB BLOOD ORDERABLES Performing Organization Address City/State/ZIP Code Phon e Number [facility] [address] [place] [id number] CBC Branch Off w/Diff (04/22/2019 9:37 AM TRENCH SHOVEL OPERATOR) P athologist Signature WBC 8.6 3.5 - 10.5 04/22/2019 [facility] K/uL 9:48 AM TRENCH SHOVEL OPERATOR [place] RBC 4.94 4.30 - 04/22/2019 [facility] 5.70 M/uL 9:48 AM TRENCH SHOVEL OPERATOR [place] Hemoglobin 15.1 13.5 - 04/22/2019 [facility] 17.5 g/dL 9:48 AM TRENCH SHOVEL OPERATOR [place] Hematocrit 45.4 38.0 - 04/22/2019 [facility] 50.0 % 9:48 AM TRENCH SHOVEL OPERATOR [place] Platelets 279 150 - 450 04/22/2019 [facility] K/uL 9:48 AM TRENCH SHOVEL OPERATOR [place] MCV 91.9 81.2 - 04/22/2019 [facility] 95.1 fL 9:48 AM TRENCH SHOVEL OPERATOR [place] MCH 30.6 26.0 - 04/22/2019 [facility] 32.0 pg 9:48 AM TRENCH SHOVEL OPERATOR [place] MCHC 33.3 32.0 - 04/22/2019 [facility] 36.0 g/dL 9:48 AM TRENCH SHOVEL OPERATOR [place] RDW 13.6 11.8 - 04/22/2019 [facility] 15.6 % 9:48 AM TRENCH SHOVEL OPERATOR [place] Lymphocytes % 18.8 18.0 - 04/22/2019 [facility] 45.0 % 9:48 AM TRENCH SHOVEL OPERATOR [place] Mid-size Cells 8.1 3.3 - 10.1 04/22/2019 [facility] % 9:48 AM TRENCH SHOVEL OPERATOR [place] Granulocytes/Urszula 73.1 45.8 - 04/22/2019 [facility] trophils 73.7 % 9:48 AM TRENCH SHOVEL OPERATOR [place] Lymphocytes 1.6 0.9 - 2.9 04/22/2019 [facility] Absolute K/uL 9:48 AM TRENCH SHOVEL OPERATOR [place] MIDS Absolute 0.7 0.2 - 0.8 04/22/2019 [facility] K/uL 9:48 AM TRENCH SHOVEL OPERATOR [place] Granulocytes/Urszula 6.3 2.1 - 8.7 04/22/2019 [facility] trophils K/uL 9:48 AM [facility] [place] Absolute Specimen Anatomical Collection Method Collection Time Receive d Time (Source) Location / / Volume Laterality Blood 04/22/2019 9:37 AM 9 9:37 TRENCH SHOVEL OPERATOR AM TRENCH SHOVEL OPERATOR Laila Loco APRN, CHANNELING MACHINE OPERATOR LAB BLOOD ORDERABLES Performing Organization Address City/State/ZIP Code Phon e Number [facility] [place] [address] [place] [address] (ABNORMAL) Comprehensive metabolic panel (04/22/2019 9:37 AM TRENCH SHOVEL OPERATOR) [facility] Method Time Signature Total Protein 8.3 (H) 6.3 - 8.2 04/22/2019 [place] g/dL 1:05 PM [facility] Albumin, Serum 4.3 3.5 - 5.0 04/22/2019 [place] g/dL 1:05 PM [facility] Total Bilirubin 1.4 (H) 0.1 - 1.0 04/22/2019 [place] mg/dL 1:05 PM [facility] AST 22 8 - 48 04/22/2019 [place] U/L 1:05 PM [facility] Alkaline 135 (H) 38 - 128 04/22/2019 [place] Phosphatase U/L 1:05 PM [facility] ALT (SGPT) 20 0 - 49 04/22/2019 [place] U/L 1:05 PM [facility] Sodium 144 135 - 145 04/22/2019 [place] mEq/L 1:05 PM [facility] Potassium 5.0 3.5 - 5.1 04/22/2019 [place] mEq/L 1:05 PM [facility] Chloride 103 98 - 107 04/22/2019 [place] mEq/L 1:05 PM [facility] CO2 30 22 - 31 04/22/2019 [place] mmol/L 1:05 PM [facility] BUN 13 5 - 25 04/22/2019 [place] mg/dL 1:05 PM [facility] Creatinine 1.3 0.6 - 1.4 04/22/2019 [place] mg/dL 1:05 PM [facility] Glucose 127 (H) 70 - 100 04/22/2019 [place] mg/dL 1:05 PM [facility] Calcium, Total,S 10.3 (H) 8.4 - 04/22/2019 [place] 10.2 1:05 PM [facility] mg/dL LABORATORY Specimen Anatomical Collection Method Collection Time Receive d Time (Source) Location / / Volume Laterality Blood 04/22/2019 9:37 AM 9 TRENCH SHOVEL OPERATOR 12:30 PM TRENCH SHOVEL OPERATOR Laila Loco SILVER SOLUTION MIXER, CHANNELING MACHINE OPERATOR LAB BLOOD ORDERABLES Performing Organization Address City/State/ZIP Code Phon e Number [facility] [address] [place] [address] (ABNORMAL) Lipid panel (04/22/2019 9:37 AM TRENCH SHOVEL OPERATOR) athologist Signature Cholesterol 175 0 - 199 04/22/2019 [facility] mg/dL 1:05 PM [facility] Comment: Recommended by National Cholesterol Education Program (ATP III) -------- Cholesterol Ranges -------- <200 ? Desirable 200-239 ? Borderline high >=240 ? High Triglycerides 121 0 - 149 mg/dL 04/22/2019 1:05 PM [facility] Comment: -------- TRIG Ranges -------- <150 ?Normal 150-199 ? Borderline high 200-499 ? High >=500 ? Very high HDL 44 40 - 60 mg/dL 04/22/2019 1:05 PM [facility] Comment: -------- HDL Ranges -------- <40 ?Low 40-59 ?Normal >=60 ? Optimal LDL Calculated 107 (A) 0 - 99 mg/dL 04/22/2019 1:05 PM [facility] Comment: -------- LDL Ranges -------- <100 ? Optimal 100-129 ?Near optimal/above op timal 130-159 ?Borderline high 160-189 ?High >=190 ?Very high Fasting? Yes 04/22/2019 9:45 AM [facility] Specimen Anatomical Collection Method Collection Time Receive d Time (Source) Location / / Volume Laterality Blood 04/22/2019 9:37 AM 9 TRENCH SHOVEL OPERATOR 12:30 PM TRENCH SHOVEL OPERATOR Laila Loco APRN, CNP LAB BLOOD ORDERABLES Performing Organization Address [facility]/ZIP Code Phon e Number [facility] [address] [place] [address] PSA (04/22/2019 9:37 AM TRENCH SHOVEL OPERATOR) athologist Signature Total PSA 1.3 0.0 - 7.0 04/23/2019 [facility] ng/mL 2:09 PM [facility] Comment: The results from this [...] Volume Laterality Blood 04/22/2019 9:37 AM 9 TRENCH SHOVEL OPERATOR 12:39 PM TRENCH SHOVEL OPERATOR Laila Loco APRN, CNP LAB BLOOD ORDERABLES Performing Organization Address City/Special Care [facility]/ZIP Code Phon e Number [facility] [address] [place] [address] (ABNORMAL) Hemoglobin A1c (04/22/2019 9:37 AM TRENCH SHOVEL OPERATOR) Analysis Performed At Patho logist Time Signature Hemoglobin A1C 5.9 (H) 4.0 - 5.6 04/22/2019 [place] % A1C 1:05 PM TRENCH SHOVEL OPERATOR [facility] Comment: Reference Range [...] Volume Laterality Blood 04/22/2019 9:37 AM 9 TRENCH SHOVEL OPERATOR 12:30 PM TRENCH SHOVEL OPERATOR Laila Loco APRN, CHANNELING MACHINE OPERATOR LAB BLOOD ORDERABLES Performing Organization Address City/State/ZIP Code Phon e Number [facility] [address] [place] [address] documented in this encounter Visit Diagnoses Diagnosis Prediabetes Other abnormal glucose Screening PSA (prostate specific antigen ) Special screening for malignant neoplasm of prostate Hyperlipidemia, unspecified hyperlipidem ia type 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, unspecified vessel or lesion type, unspecified whether [place] or transplant ed heart Medication monitoring encounter Encounter for therapeutic drug monitorin g Other fatigue Screening, anemia, deficiency, iron Screening for iron deficiency anemia documented in this encounter Care Teams Bid Manager Relationship Specialty Start Date End Date Laila Loco APRN, CHANNELING MACHINE OPERATOR PCP - General 12/09/17 01/10/[address] [place] [id number] documented as of this encounter
--- OUTSIDE RECORDS SUMMARY | 2021-12-18 08:03 | XMS_ITS | Encounter Summary ---
:1940 Author Organization [facility] Address [address] [place] [address] Care Team Providers Name Role Phone Laila Loco APRN, IRA Primary Care Provider [phone] Reason for Visit Reason Comments Cough Encounter Details Date Type Department Care Team Description 06/28/2019 Office Visit [place] Cough (Primary Dx); [address] M, IRA WARD Irregular heart rate [place] [address] [facility] [address] [place] [address] Social History Tobacco Use Types Packs/Day Years [...] Comments Blood Pressure 130/60 06/28/2019 10:33 AM CHIEF HOSPITAL ADMINISTRATOR Pulse 66 06/28/2019 10:33 AM CHIEF HOSPITAL ADMINISTRATOR Temperature 36.4 ??C (97.6 ??F) 06/28/2019 10:33 AM CHIEF HOSPITAL ADMINISTRATOR Respiratory Rate 16 06/28/2019 10:33 AM CHIEF HOSPITAL ADMINISTRATOR Oxygen Saturation 97% 06/28/2019 10:33 AM CHIEF HOSPITAL ADMINISTRATOR Inhaled Oxygen Concentration - - Weight 65.5 kg (144 lb 8 oz) 06/28/2019 10:33 AM CHIEF HOSPITAL ADMINISTRATOR Height 167.6 cm (5' 6) 06/28/2019 10:33 AM CHIEF HOSPITAL ADMINISTRATOR Body Mass Index 23.32 06/28/2019 10:33 AM CHIEF HOSPITAL ADMINISTRATOR documented in this encounter Patient Instructions Patient InstructionsChsulema Loco APRN, CNP - 06/28/2019 10:20 AM CHIEF HOSPITAL ADMINISTRATOR [facility] F HOSPITAL ADMINISTRATOR documented in this encounter Progress Notes Laila [...] his symptoms started before he traveled to [facility] 5 days ago, returning on [...] plan of care. Laila Loco APRN, IRA F HOSPITAL ADMINISTRATOR documented in this encounter Plan of Treatment Not on filedocumented as of this encounter Procedures Procedure Name Priority Date/Time Associated Diagnosis Comme nts XR CHEST 2 VIEWS Routine 06/28/2019 11:30 AM Cough Resu lts for this CHIEF HOSPITAL ADMINISTRATOR procedure are i n the results section. ECG 12-LEAD Routine 06/28/2019 12:00 AM Irregular heart rate Results for this CHIEF HOSPITAL ADMINISTRATOR procedure are i n the results section. documented in this encounter Results X-ray Chest 2 Views (06/28/2019 11:30 AM CHIEF HOSPITAL ADMINISTRATOR) Anatomical Region Laterality Modality Body Radiographic Imaging Specimen (Source) Anatomical Collection Method Collection Time Re ceived Time Location / / Volume Laterality 06/28/2019 11:30 AM CHIEF HOSPITAL ADMINISTRATOR Impressions 06/28/2019 11:39 AM CHIEF HOSPITAL ADMINISTRATOR IMPRESSION: Stable peripheral right basal interstiti al prominence which is likely postinflammatory fibrotic stranding. ??R esidual pneumonia is not totally excluded. Narrative 06/28/2019 11:39 AM CHIEF HOSPITAL ADMINISTRATOR INDICATION: cough COMPARISON: 04/22/2019 FINDINGS: CXR: Min [...] pneumonia is not totally excluded. Laila Loco STAGE ELECTRICIAN HELPER, STRUCTURAL STEEL IRONWORKER IMG XR PROCEDURES (ABNORMAL) CBC Branch Off w/Diff (06/28/2019 11:22 AM CHIEF HOSPITAL ADMINISTRATOR) [facility] Method Time Signature WBC 7.1 3.5 - 10.5 06/28/2019 [facility] K/uL 1:04 PM CHIEF HOSPITAL ADMINISTRATOR [place] RBC 4.87 4.30 - 06/28/2019 [facility] 5.70 M/uL 1:04 PM CHIEF HOSPITAL ADMINISTRATOR [place] Hemoglobin 14.6 13.5 - 06/28/2019 [facility] 17.5 g/dL 1:04 PM CHIEF HOSPITAL ADMINISTRATOR [place] Hematocrit 44.6 38.0 - 06/28/2019 [facility] 50.0 % 1:04 PM CHIEF HOSPITAL ADMINISTRATOR [place] Platelets 221 150 - 450 06/28/2019 [facility] K/uL 1:04 PM CHIEF HOSPITAL ADMINISTRATOR [place] MCV 91.6 81.2 - 06/28/2019 [facility] 95.1 fL 1:04 PM CHIEF HOSPITAL ADMINISTRATOR [place] MCH 30.0 26.0 - 06/28/2019 [facility] 32.0 pg 1:04 PM CHIEF HOSPITAL ADMINISTRATOR [place] MCHC 32.7 32.0 - 06/28/2019 [facility] 36.0 g/dL 1:04 PM CHIEF HOSPITAL ADMINISTRATOR [place] RDW 14.5 11.8 - 06/28/2019 [facility] 15.6 % 1:04 PM CHIEF HOSPITAL ADMINISTRATOR [place] Lymphocytes % 18.9 18.0 - 06/28/2019 [facility] 45.0 % 1:04 PM CHIEF HOSPITAL ADMINISTRATOR [place] Mid-size Cells 5.6 3.3 - 10.1 06/28/2019 [facility] % 1:04 PM CHIEF HOSPITAL ADMINISTRATOR [place] Granulocytes/Urszula 75.5 (H) 45.8 - 06/28/2019 [facility] trophils 73.7 % 1:04 PM CHIEF HOSPITAL ADMINISTRATOR [place] Lymphocytes 1.3 0.9 - 2.9 06/28/2019 [facility] Absolute K/uL 1:04 PM CHIEF HOSPITAL ADMINISTRATOR [place] MIDS Absolute 0.4 0.2 - 0.8 06/28/2019 [facility] K/uL 1:04 PM CHIEF HOSPITAL ADMINISTRATOR [place] Granulocytes/Urszula 5.4 2.1 - 8.7 06/28/2019 [facility] trophils K/uL 1:04 PM CHIEF HOSPITAL ADMINISTRATOR [place] Absolute Specimen Anatomical Collection Method Collection Time Receive d Time (Source) Location / / Volume Laterality Blood 06/28/2019 11:22 06/28/2019 AM CHIEF HOSPITAL ADMINISTRATOR 11:22 AM CHIEF HOSPITAL ADMINISTRATOR Laila Loco APRN, CNP LAB BLOOD ORDERABLES Performing Organization Address City/State/ZIP Code Phon e Number [facility] [place] [address] [place] [address] ECG 12 lead (06/28/2019 12:00 AM CHIEF HOSPITAL ADMINISTRATOR) Narrative 06/28/2019 12:00 AM CHIEF HOSPITAL ADMINISTRATOR This result has an attachment that is no t available. ECG for irregular heart rhythm performed , patient tolerated procedure well Laila Loco APRN, CNP ECG ORDERABLES documented in this encounter Visit Diagnoses Diagnosis Cough - Primary Irregular heart rate documented in this encounter Care Teams Bend Up Relationship Specialty Start Date End Date Laila Loco APRN, CNP PCP - General 12/09/17 01/10/20 [address] [place] [address] documented as of this encounter
--- OUTSIDE RECORDS SUMMARY | 2021-12-18 08:03 | XMS_ITS | Encounter Summary ---
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, unspecified vessel or lesion type, unspecified whether lummi or transplanted heart; [address] [place], [place] Cough; [phone] [address] Prediabetes; [phone] Other fatigue; (Work) Medication jose toring encounter; [...] Comments Blood Pressure 148/86 04/22/2019 9:44 AM KNIFE SETTER Pulse 86 04/22/2019 8:27 AM KNIFE SETTER Temperature 35.8 ??C (96.4 ??F) 04/22/2019 8:27 AM KNIFE SETTER Respiratory Rate 16 04/22/2019 8:27 AM KNIFE SETTER Oxygen Saturation 94% 04/22/2019 8:27 AM KNIFE SETTER Inhaled Oxygen Concentration - - Weight 65 kg (143 lb 4.8 oz) 04/22/2019 8:27 AM KNIFE SETTER Height 168 cm (5' 6.14) 04/22/2019 8:27 AM KNIFE SETTER Body Mass Index 23.03 04/22/2019 8:27 AM KNIFE SETTER documented in this encounter Patient Instructions Patient InstructionsChrismanuel Loco APRN, CNP - 04/22/2019 8:40 AM KNIFE SETTER Will call with the lab results and official radiology report of the chest xray Could consider the Shingrix, pharmacy setting E SETTER documented in this encounter Progress Notes Laila Loco APRN, CNP - 04/22/2019 8:40 AM CST Well Adult - Estab Subjective Patient ID: Obey Vines is a 79 y.o. male presenting for the following concerns. Chief Complaint Patient presents with ??? Annual Exam HPI: The patient is a pleasant 79-year-old right hand dominant male [facility]. The [...] events. 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 [...] file Gets together: Not on file Attends jewish service: Not on file Active member of [...] unspecified vessel or lesion type, unspecified whether lummi or transplanted heart - Comprehensive metabolic panel; [...] in 2 weeks. Laila Loco APRN, IRA E SETTER documented in this encounter Plan of Treatment Not on filedocumented as of this encounter Procedures Procedure Name Priority Date/Time Associated Diagnosis Comme nts XR CHEST 2 VIEWS Routine 04/22/2019 9:46 AM Cough Resul ts for this KNIFE SETTER procedure are i n the results section. documented in this encounter Results X-ray Chest 2 Views (04/22/2019 9:46 AM KNIFE SETTER) Anatomical Region Laterality Modality Body Radiographic Imaging Specimen (Source) Anatomical Collection Method Collection Time Re ceived Time Location / / Volume Laterality 04/22/2019 9:46 AM KNIFE SETTER Impressions 04/22/2019 9:54 AM KNIFE SETTER IMPRESSION: New peripheral right anterior basal lowe r lobe pneumonia Narrative 04/22/2019 9:54 AM KNIFE SETTER INDICATION: cough, crackles in the left lower [...] PROCEDURES (ABNORMAL) Hemoglobin A1c (04/22/2019 9:37 AM KNIFE SETTER) Analysis Performed At Patho logist Time Signature Hemoglobin A1C 5.9 (H) 4.0 - 5.6 04/22/2019 [place] % A1C 1:05 PM [facility] Comment: Reference Range [...] Volume Laterality Blood 04/22/2019 9:37 AM 9 KNIFE SETTER 12:30 PM KNIFE SETTER Laila Loco APRN, IRA LAB BLOOD ORDERABLES Performing Organization Address City/State/ZIP Code Phon e Number [facility] [address] [place] [address] PSA (04/22/2019 9:37 AM KNIFE SETTER) athologist Signature Total PSA 1.3 0.0 - 7.0 04/23/2019 [facility] ng/mL 2:09 PM KNIFE [facility]TER CENTER [facility]ORY Comment: The results from this [...] Volume Laterality Blood 04/22/2019 9:37 AM 9 KNIFE SETTER 12:39 PM KNIFE SETTER Laila Loco APRN, CNP LAB BLOOD ORDERABLES Performing Organization Address City/State/ZIP Code Phon e Number [facility] [address] [place] [address] (ABNORMAL) Lipid panel (04/22/2019 9:37 AM KNIFE SETTER) athologist Signature Cholesterol 175 0 - 199 04/22/2019 [facility] mg/dL 1:05 PM [facility] Comment: Recommended by National Cholesterol Education Program (ATP III) -------- Cholesterol Ranges -------- <200 ? Desirable 200-239 ? Borderline high >=240 ? High Triglycerides 121 0 - 149 mg/dL 04/22/2019 1:05 PM [facility] Comment: -------- TRIG Ranges -------- <150 ?Normal 150-199 ? Borderline high 200-499 ? High >=500 ? Very high HDL 44 40 - 60 mg/dL 04/22/2019 1:05 PM [facility] Comment: -------- HDL Ranges -------- <40 ?Low 40-59 ?Normal >=60 ? Optimal LDL Calculated 107 (A) 0 - 99 mg/dL 04/22/2019 1:05 PM [facility] Comment: -------- LDL Ranges -------- <100 ? Optimal 100-129 ?Near optimal/above op timal 130-159 ?Borderline high 160-189 ?High >=190 ?Very high Fasting? Yes 04/22/2019 9:45 AM [facility] Specimen Anatomical Collection Method Collection Time Receive d Time (Source) Location / / Volume Laterality Blood 04/22/2019 9:37 AM 9 KNIFE SETTER 12:30 PM KNIFE SETTER Laila Loco APRN, FRUIT STUFFER LAB BLOOD ORDERABLES Performing Organization Address City/State/ZIP Code Phon e Number [facility] [address] [place] [address] (ABNORMAL) Comprehensive metabolic panel (04/22/2019 9:37 AM KNIFE SETTER) [facility] gist Method Time Signature Total Protein 8.3 (H) 6.3 - 8.2 04/22/2019 [place] g/dL 1:05 PM [facility] Albumin, Serum 4.3 3.5 - 5.0 04/22/2019 [place] g/dL 1:05 PM [facility] Total Bilirubin 1.4 (H) 0.1 - 1.0 04/22/2019 [place] mg/dL 1:05 PM [facility] AST 22 8 - 48 04/22/2019 [place] U/L 1:05 PM [facility] Alkaline 135 (H) 38 - 128 04/22/2019 [place] Phosphatase U/L 1:05 PM [facility] ALT (SGPT) 20 0 - 49 04/22/2019 [place] U/L 1:05 PM [facility] Sodium 144 135 - 145 04/22/2019 [place] mEq/L 1:05 PM [facility] Potassium 5.0 3.5 - 5.1 04/22/2019 [place] mEq/L 1:05 PM [facility] Chloride 103 98 - 107 04/22/2019 [place] mEq/L 1:05 PM [facility] CO2 30 22 - 31 04/22/2019 [place] mmol/L 1:05 PM [facility] BUN 13 5 - 25 04/22/2019 [place] mg/dL 1:05 PM [facility] Creatinine 1.3 0.6 - 1.4 04/22/2019 [place] mg/dL 1:05 PM [facility] Glucose 127 (H) 70 - 100 04/22/2019 [place] mg/dL 1:05 PM [facility] Calcium, Total,S 10.3 (H) 8.4 - 04/22/2019 [place] 10.2 1:05 PM [facility] mg/dL LABORATORY Specimen Anatomical Collection Method Collection Time Receive d Time (Source) Location / / Volume Laterality Blood 04/22/2019 9:37 AM 9 KNIFE SETTER 12:30 PM KNIFE SETTER Laila Loco APRN, FRUIT STUFFER LAB BLOOD ORDERABLES Performing Organization Address City/State/ZIP Code Phon e Number [facility] [address] [place] [address] CBC Branch Off w/Diff (04/22/2019 9:37 AM KNIFE SETTER) P athologist Signature WBC 8.6 3.5 - 10.5 04/22/2019 [facility] K/uL 9:48 AM KNIFE SETTER [place] RBC 4.94 4.30 - 04/22/2019 [facility] 5.70 M/uL 9:48 AM KNIFE SETTER [place] Hemoglobin 15.1 13.5 - 04/22/2019 [facility] 17.5 g/dL 9:48 AM KNIFE SETTER [place] Hematocrit 45.4 38.0 - 04/22/2019 [facility] 50.0 % 9:48 AM KNIFE SETTER [place] Platelets 279 150 - 450 04/22/2019 [facility] K/uL 9:48 AM KNIFE SETTER [place] MCV 91.9 81.2 - 04/22/2019 [facility] 95.1 fL 9:48 AM KNIFE SETTER [place] MCH 30.6 26.0 - 04/22/2019 [facility] 32.0 pg 9:48 AM KNIFE SETTER [place] MCHC 33.3 32.0 - 04/22/2019 [facility] 36.0 g/dL 9:48 AM KNIFE SETTER [place] RDW 13.6 11.8 - 04/22/2019 [facility] [place] 15.6 % 9:48 AM KNIFE SETTER [place] Lymphocytes % 18.8 18.0 - 04/22/2019 [facility] [place] 45.0 % 9:48 AM KNIFE SETTER [place] Mid-size Cells 8.1 3.3 - 10.1 04/22/2019 [facility] [place] % 9:48 AM KNIFE SETTER [place] Granulocytes/Urszula 73.1 45.8 - 04/22/2019 [facility] [place] trophils 73.7 % 9:48 AM KNIFE SETTER [place] Lymphocytes 1.6 0.9 - 2.9 04/22/2019 [facility] [place] Absolute K/uL 9:48 AM KNIFE SETTER [place] MIDS Absolute 0.7 0.2 - 0.8 04/22/2019 [facility] [place] K/uL 9:48 AM KNIFE SETTER [place] Granulocytes/Urszula 6.3 2.1 - 8.7 04/22/2019 [facility] [place] trophils K/uL 9:48 AM KNIFE SETTER [place] Absolute Specimen Anatomical Collection Method Collection Time Receive d Time (Source) Location / / Volume Laterality Blood 04/22/2019 9:37 AM 9 9:37 KNIFE SETTER AM KNIFE SETTER Laila Loco APRN, FRUIT STUFFER LAB BLOOD ORDERABLES Performing Organization Address City/State/ZIP Code Phon e Number [facility] [place] [address] [place] [address] documented in this encounter Visit Diagnoses Diagnosis Annual physical exam - Primary Routine general medical examination at a health care facility Hyperlipidemia, unspecified hyperlipidem ia type 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, unspecified vessel or lesion type, unspecified whether lummi or transplant ed heart Cough Prediabetes Other abnormal glucose Other fatigue Medication monitoring encounter Encounter for therapeutic drug monitorin g Screening PSA (prostate specific antigen ) Special screening for malignant neoplasm of prostate Screening, anemia, deficiency, iron Screening for iron deficiency anemia documented in this encounter Care Teams Grinding Wheel Facer Relationship Specialty Start Date End Date Laila Loco APRN, FRUIT STUFFER PCP - General 12/09/17 01/10/[address] [place] [address] [place] [address] documented as of this encounter
--- OUTSIDE RECORDS SUMMARY | 2021-12-18 08:03 | XMS_ITS | Encounter Summary ---
:1940 Author Organization [facility] Address [address] [place] [address] Care Team Providers Name Role Phone Laila Loco APRN, BULB PACKER Primary Care Provider [phone] Reason for Visit Reason Comments Medicare Annual Wellness Visit Subsequent Encounter Details Date Type Department Care Team Description 04/22/2019 Office Visit [place] Medicare annual wellness [address] visit, subsequent [place], [place] [address] Social History Tobacco Use [...] Comments Blood Pressure 134/68 04/22/2019 8:29 AM SINGLE RESOURCE BOSS Pulse 86 04/22/2019 8:29 AM SINGLE RESOURCE BOSS Temperature 35.8 ??C (96.4 ??F) 04/22/2019 8:29 AM SINGLE RESOURCE BOSS Respiratory Rate 16 04/22/2019 8:29 AM SINGLE RESOURCE BOSS Oxygen Saturation 94% 04/22/2019 8:29 AM SINGLE RESOURCE BOSS Inhaled Oxygen Concentration - - Weight 65 kg (143 lb 4.8 oz) 04/22/2019 8:29 AM SINGLE RESOURCE BOSS Height 168 cm (5' 6.14) 04/22/2019 8:29 AM SINGLE RESOURCE BOSS Body Mass Index 23.03 04/22/2019 8:29 AM SINGLE RESOURCE BOSS documented in this encounter Progress Notes Guillermina Bradford LPN - 04/22/2019 8:40 AM CST Annual Wellness Visit CARE TEAM / RESOURCES: Patient Care Team: Laila Loco APRN, BULB PACKER as PCP - General Eye Care: Dr. Miranda [place] Dental Care: NONE Jose Luis (quit) Pharmacy: [facility] - [address] [address] Other: Visit Vitals BP 134/68 (BP Location: [...] pathological fracture ??? 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 Disturbance [...] on phone: None Gets together: None Attends yarsani service: None Active member of club or [...] transfusion before 1991. ?? Those born between 5[birth year]-8585. Glaucoma: Medicare Part B (Medical Insurance) covers [...] of one pack a dayfor 30 years). LE RESOURCE BOSS documented in this encounter Plan of Treatment Not on filedocumented as of this encounter Visit Diagnoses Diagnosis Medicare annual wellness visit, subseque nt documented in this encounter Care Teams Relief Pilot Relationship Specialty Start Date End Date Laila Loco APRN, BULB PACKER PCP - General 12/09/17 01/10/20 [address] [facility] [place] [address] documented as of this encounter
--- OUTSIDE RECORDS SUMMARY | 2021-12-18 08:03 | XMS_ITS | Encounter Summary ---
:[address] [facility] Address [address] [place] [address] Care Team Providers Name Role Phone Laila Loco DISEASE CONTROL INSPECTOR, CD MIXER Primary Care Provider [phone] Reason for Visit Reason Onset Date Comments Return call 04/26/2019 Encounter Details Date Type Department Care Team Description 04/26/2019 Telephone [place] Laila Loco, Return call [address] DISEASE CONTROL INSPECTOR, CD MIXER [place], [place] [address] [address] [address] [phone] [place], [place] [address] Social History Tobacco Use [...] Loco APRN, IRA - 04/26/2019 1:52 PM SOFTWARE PACKAGER The patient was notified of the results of his chest xray. WARE PACKAGER Telephone Encounter - Aliza Renee - 04/26/2019 1:22 PM CST Patient returned call from Rajan Loco. WARE PACKAGER documented in this encounter Plan of Treatment Not on filedocumented as of this encounter Visit Diagnoses Not on filedocumented in this encounter Care Teams Automobile Service Station Attendant Relationship Specialty Start Date End Date Laila Loco APRN, IRA PCP - General 12/09/17 01/10/20 [address] [facility] [place] [address] documented as of this encounter
--- OUTSIDE RECORDS SUMMARY | 2021-12-18 08:03 | XMS_ITS | Encounter Summary ---
:[address] [facility] Address [address] [place] [address] Care Team Providers Name Role Phone Laila Loco PEDIATRIC ALLERGIST, MEASUREMENT SUPERVISOR Primary Care Provider [phone] Reason for Visit Reason Onset Date Comments Med refills needed 09/15/2018 Encounter Details Date Type Department Care Team Description 09/15/2018 Telephone [place] Laila Loco, Med refills needed [address] PEDIATRIC ALLERGIST, [place], [place] [address] [address] [facility] [address] [phone] [place], [place] [address] Social History Tobacco Use [...] Encounter - Laila Loco APRN, IRA - 09/15/2018 10:06 AM CDT Contacted the [...] throat. Pt would like these sent to [facility]. Please call Pt at [phone] to advise. documented in this encounter Plan of Treatment Not on filedocumented as of this encounter Visit Diagnoses Diagnosis Atherosclerosis of solomon coronary arter y without angina pectoris, unspecified whether solomon or transplanted heart - P rimary Gastroesophageal reflux disease without esophagitis Esophageal reflux documented in this encounter Care Teams Grinder Set Up Operator Thread Relationship Specialty Start Date End Date Laila Loco APRN, MEASUREMENT SUPERVISOR PCP - General 12/09/17 01/10/[address] [place] [address] documented as of this encounter
--- OUTSIDE RECORDS SUMMARY | 2021-12-18 08:03 | XMS_ITS | Encounter Summary ---
:1940 Author Organization [facility] Address [address] [place] [address] Care Team Providers Name Role Phone Laila Loco MACHINE HEDDLE CLEANER, AIRLINE COUNTER AGENT Primary Care Provider Reason for Visit Reason Onset Date Comments Talk with Rajan Loco 08/25/2018 Encounter Details Date Type Department Care Team Description 08/25/2018 Telephone [place] Laila Loco, Talk with Rajan Loco [address] MACHINE HEDDLE CLEANER, AIRLINE COUNTER AGENT [place], [place] [address] [address] [facility] [address] [phone] [place], [place] [address] Social History Tobacco Use [...] Rajan's request. She can be reached at [phone]. documented in this encounter Plan of Treatment Not on filedocumented as of this encounter Visit Diagnoses Not on filedocumented in this encounter Care Teams Guest Relations Officer Relationship Specialty Start Date End Date Laila Loco APRN, AIRLINE COUNTER AGENT PCP - General 12/09/17 01/10/[address] [place] [address] [place] [facility] [place] [address] documented as of this encounter
--- OUTSIDE RECORDS SUMMARY | 2021-12-18 08:03 | XMS_ITS | Encounter Summary ---
:1940 Author Organization [facility] Address [address] [place] [address] Care Team Providers Name Role Phone Laila Loco COMMUNITY SERVICE COORDINATOR, TRACK REPAIR LABORER Primary Care Provider [phone] Encounter Details Date Type Department Care Team Description 04/26/2019 Orders Only [place] Laila Loco, Pneumonia of right [address] COMMUNITY SERVICE COORDINATOR, TRACK REPAIR LABORER lower lobe due to [place], [place] [address] infectious organism [address] [place] [address] (HCC) (Primary Dx) [phone] Social History Tobacco Use Types Packs/Day Years [...] Primary documented in this encounter Care Teams Physician Scientist Relationship Specialty Start Date End Date Laila Loco, COMMUNITY SERVICE COORDINATOR, TRACK REPAIR LABORER PCP - General 12/09/17 01/10/[address] [place] [address] [place] [address] documented as of this encounter
--- OUTSIDE RECORDS SUMMARY | 2021-12-18 08:03 | XMS_ITS | Encounter Summary ---
:1940 Author Organization [facility] Address [address] [place] [address] Care Team Providers Name Role Phone Laila Loco SUPERVISOR SOLDERING, WHEELAGE CLERK Primary Care Provider [phone] Reason for Visit Reason Onset Date Comments Information needed for referral 08/28/2018 Encounter Details Date Type Department Care Team Description 08/28/2018 Telephone [place] Laila Loco, Information needed for [address] SUPERVISOR SOLDERING, [place] referral [place] [address] [address] [facility] [address] [phone] [place], [place] [address] Social History Tobacco Use [...] - 08/28/2018 3:54 PM CDT Sophia with [facility] called requesting to speak with a nurse regarding the memory loss referral. She tried to speak with the Pt on the phone to verify information but between his hearing and memory loss she could not get any information. She tried utilizing Care Everywhere, but could only find info on the shoulder pain. Please call [phone] and ask for Sophia, if she is not available she will leave notes for whomever answers on what is needed. documented in this encounter Plan of Treatment Not on filedocumented as of this encounter Visit Diagnoses Not on filedocumented in this encounter Care Teams Resident Program Specialist Relationship Specialty Start Date End Date Laila Loco, SUPERVISOR SOLDERING, WHEELAGE CLERK PCP - General 12/09/17 01/10/[address] [place] [address] documented as of this encounter
--- OUTSIDE RECORDS SUMMARY | 2021-12-18 08:03 | XMS_ITS | Encounter Summary ---
:1940 Author Organization [facility] Address [address] [place] [address] Care Team Providers Name Role Phone Laila Loco SILK FINISHER, ENTERPRISE PROJECT MANAGER Primary Care Provider [phone] Encounter Details Date Type Department Care Team Description 08/11/2018 Orders Only [place] Laila Loco, Cervical pain (neck) [address] ED, IRA (Primary Dx) [place], [place] 100 [facility] [address] [place] [address] Social History Tobacco Use Types Packs/Day Years [...] Cervicalgia documented in this encounter Care Teams School Secretary Relationship Specialty Start Date End Date Laila Loco, SILK FINISHER, ENTERPRISE PROJECT MANAGER PCP - General 12/09/17 01/10/20 100 [facility] [address] documented as of this encounter
--- OUTSIDE RECORDS SUMMARY | 2021-12-18 08:03 | XMS_ITS | Encounter Summary ---
:[address] [facility] Address [address] [place] [address] Care Team Providers Name Role Phone Laila Loco LABORER COOK HOUSE, DIRECT SERVICE PROVIDER Primary Care Provider Encounter Details Date Type Department Care Team Description 08/11/2018 Telephone [place] Laila Loco, [address] LABORER COOK HOUSE, DIRECT SERVICE PROVIDER [place] [address] [facility] [address] [phone] [place], [place] [address] Social History Tobacco Use [...] on filedocumented in this encounter Care Teams Insurance Rater Relationship Specialty Start Date End Date Laila Loco, LABORER COOK HOUSE, DIRECT SERVICE PROVIDER PCP - General 12/09/17 01/10/20 [address] [facility] [place] [address] documented as of this encounter
--- OUTSIDE RECORDS SUMMARY | 2021-12-18 08:04 | XMS_ITS | Encounter Summary ---
:1940 Author Organization [facility] Address [address] [place] [address] Care Team Providers Name Role Phone Laila Loco NUTRITIONAL ASSISTANT, SUPERVISOR MICROBIOLOGY TECHNOLOGISTS Primary Care Provider [phone] Reason for Visit Reason Onset Date Comments Med Refill 04/06/2018 Encounter Details Date Type Department Care Team Description 04/06/2018 Refill [place], Hyperlipidemia, [address] NUTRITIONAL ASSISTANT, [place] unspecified [place] [address] [address] hyperlipidemia type [phone] [place], [place] [address] (Primary Dx) Social History [...] Loco APRN, CNP - 04/06/2018 12:38 PM MAINTENANCE COORDINATOR The prescription was written as requested. TENANCE COORDINATOR Telephone Encounter - Guillermina Bradford LPN - 04/06/2018 11:34 AM CST Ezetimibe, pending Pharmacy: [facility] TENANCE COORDINATOR documented in this encounter Plan of Treatment Not on filedocumented as of this encounter Visit Diagnoses Diagnosis Hyperlipidemia, unspecified hyperlipidem ia type - Primary documented in this encounter Care Teams Data Entry Manager Relationship Specialty Start Date End Date Laila Loco APRN, CNP PCP - General 12/09/17 01/10/20 100 [facility] [place] [address] documented as of this encounter
--- OUTSIDE RECORDS SUMMARY | 2021-12-18 08:04 | XMS_ITS | Encounter Summary ---
:[address] 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, unspecified vessel or lesion type, unspecified whether [place] or transplanted heart (Primary Dx); [address] MED CNP Hyperlipidemia, unspecified hyperlipidem ia type; [place], [place] [address] Gastroesophageal reflux disease without esophagitis; [address] [place], [place] Impacted cerumen of left ear ; [phone] [address] Screening for diabetes mellitus; [phone] Screening, anem ia, deficiency, iron; (Work) Screening [...] Comments Blood Pressure 132/70 06/05/2018 8:02 AM HUMAN RESOURCE CONSULTANT Pulse 74 06/05/2018 8:02 AM HUMAN RESOURCE CONSULTANT Temperature 36.8 ??C (98.2 ??F) 06/05/2018 8:02 AM HUMAN RESOURCE CONSULTANT Respiratory Rate 18 06/05/2018 8:02 AM HUMAN RESOURCE CONSULTANT Oxygen Saturation 95% 06/05/2018 8:02 AM HUMAN RESOURCE CONSULTANT Inhaled Oxygen Concentration - - Weight 68.9 kg (151 lb 14.4 oz) 06/05/2018 8:02 AM HUMAN RESOURCE CONSULTANT Height 167.6 cm (5' 6) 06/05/2018 8:02 AM HUMAN RESOURCE CONSULTANT Body Mass Index 24.52 06/05/2018 8:02 AM HUMAN RESOURCE CONSULTANT documented in this encounter Patient Instructions Patient InstructionsChrismanuel Loco APRN, CNP - 06/05/2018 8:00 AM HUMAN RESOURCE CONSULTANT Prolia for osteoporosis Will call with the lab results Calcium 600 mg with Vitamin D tablets, twice daily Shingrix, check with her insurance N RESOURCE CONSULTANT documented in this encounter Progress Notes Laila [...] type, unspecified whether [place] or transplanted heart (Primary) - metoprolol tartrate [...] agrees and understands this plan of care. Liala Loco APRN, CNP N RESOURCE CONSULTANT Rosalee Simmons MA - 06/05/2018 8:00 AM [...] rest. Dizziness passed and continued with irrigation. N RESOURCE CONSULTANT documented in this encounter Plan of Treatment Not on filedocumented as of this encounter Procedures Procedure Name Priority Date/Time Associated Diagnosis Comme nts EAR CERUMEN REMOVAL Routine 06/05/2018 8:00 AM Impacted cerume n of Results for this HUMAN RESOURCE CONSULTANT left ear procedure are i n the results section. documented in this encounter Results (ABNORMAL) Hemoglobin A1c (06/05/2018 8:53 AM HUMAN RESOURCE CONSULTANT) Analysis Performed At Patho logist Time Signature Hemoglobin A1C 5.8 (H) 4.0 - 5.6 06/05/2018 [place] % A1C 2:32 PM [facility] Comment: Reference [...] (Blood, 06/05/2018 8:53 AM 06/05/19 19 Venous) HUMAN RESOURCE CONSULTANT 12:43 PM HUMAN RESOURCE CONSULTANT Laila Loco APRN, JUNIOR ACCOUNTING CLERK LAB BLOOD ORDERABLES Performing Organization Address City/State/ZIP Code Phon e Number [facility] [address] [place] [address] PSA (06/05/2018 8:53 AM HUMAN RESOURCE CONSULTANT) athologist Signature Total PSA 1.1 0.0 - 7.0 06/05/2018 [facility] ng/mL 2:05 PM HUMAN RESOURCE CONSULTANT CENTER LABORATORY Comment: The results from this [...] (Blood, 06/05/2018 8:53 AM 06/05/19 19 Venous) HUMAN RESOURCE CONSULTANT 12:45 PM HUMAN RESOURCE CONSULTANT Laila Loco APRN, JUNIOR ACCOUNTING CLERK LAB BLOOD ORDERABLES Performing Organization Address City/State/ZIP Code Phon e Number [facility] [address] [place] [address] (ABNORMAL) CBC Branch Off w/Diff (06/05/2018 8:53 AM HUMAN RESOURCE CONSULTANT) [facility] gist Method Time Signature WBC 8.7 3.5 - 10.5 06/05/2018 [facility] K/uL 9:01 AM HUMAN RESOURCE CONSULTANT [place] RBC 4.74 4.30 - 06/05/2018 [facility] 5.70 M/uL 9:01 AM HUMAN RESOURCE CONSULTANT [place] Hemoglobin 14.5 13.5 - 06/05/2018 [facility] 17.5 g/dL 9:01 AM HUMAN RESOURCE CONSULTANT [place] Hematocrit 43.0 38.0 - 06/05/2018 [facility] 50.0 % 9:01 AM HUMAN RESOURCE CONSULTANT [place] Platelets 265 150 - 450 06/05/2018 [facility] K/uL 9:01 AM HUMAN RESOURCE CONSULTANT [place] MCV 90.7 81.2 - 06/05/2018 [facility] 95.1 fL 9:01 AM HUMAN RESOURCE CONSULTANT [place] MCH 30.6 26.0 - 06/05/2018 [facility] 32.0 pg 9:01 AM HUMAN RESOURCE CONSULTANT [place] MCHC 33.7 32.0 - 06/05/2018 [facility] 36.0 g/dL 9:01 AM HUMAN RESOURCE CONSULTANT [place] RDW 13.8 11.8 - 06/05/2018 [facility] 15.6 % 9:01 AM HUMAN RESOURCE CONSULTANT [place] Lymphocytes % 15.8 (L) 18.0 - 06/05/2018 [facility] 45.0 % 9:01 AM HUMAN RESOURCE CONSULTANT [place] Mid-size Cells 8.1 3.3 - 10.1 06/05/2018 [facility] % 9:01 AM HUMAN RESOURCE CONSULTANT [place] Granulocytes/Urszula 76.1 (H) 45.8 - 06/05/2018 [facility] [place] trophils 73.7 % 9:01 AM HUMAN RESOURCE CONSULTANT [place] Lymphocytes 1.4 0.9 - 2.9 06/05/2018 [facility] [place] Absolute K/uL 9:01 AM HUMAN RESOURCE CONSULTANT [place] MIDS Absolute 0.7 0.2 - 0.8 06/05/2018 [facility] [place] K/uL 9:01 AM HUMAN RESOURCE CONSULTANT [place] Granulocytes/Urszula 6.6 2.1 - 8.7 06/05/2018 [facility] [place] trophils K/uL 9:01 AM HUMAN RESOURCE CONSULTANT [place] Absolute Specimen Anatomical Collection Method Collection Time Receive d Time (Source) Location / / Volume Laterality Blood (Blood, 06/05/2018 8:53 AM 06/05/19 19 9:00 Venous) HUMAN RESOURCE CONSULTANT AM HUMAN RESOURCE CONSULTANT Laila Loco APRN, JUNIOR ACCOUNTING CLERK LAB BLOOD ORDERABLES Performing Organization Address City/State/ZIP Code Phon e Number [facility] [place] [address] [place] [address] (ABNORMAL) Basic metabolic panel (06/05/2018 8:53 AM HUMAN RESOURCE CONSULTANT) P athologist Signature Sodium 143 135 - 145 06/05/2018 [facility] [place] mmol/L 9:07 AM [facility] [place] Potassium 3.2 (L) 3.5 - 5.1 06/05/2018 [facility] [place] mmol/L 9:07 AM [facility] [place] Comment: . Chloride 101 98 - 107 mmol/L 06/05/2018 9:07 AM [facility] [place] Comment: . CO2 32 (H) 22 - 31 mmol/L 06/05/2018 9:07 AM [facility] [place] Comment: . Creatinine 1.2 0.6 - 1.4 mg/dL 06/05/2018 9:07 AM [facility] [place] Comment: . BUN 14 5 - 25 mg/dL 06/05/2018 9:07 AM [facility] [place] Comment: . Glucose 107 (H) 70 - 100 mg/dL 06/05/2018 9:07 AM [facility] [place] Calcium, Total,S 9.8 8.4 - 10.2 mg/dL 06/05/2018 9:07 AM [facility] [place] Comment: . Fasting? Yes 06/05/2018 9:00 AM [facility] [place] NON [place] Specimen Anatomical Collection Method Collection Time Receive d Time (Source) Location / / Volume Laterality Blood (Blood, 06/05/2018 8:53 AM 06/05/19 19 9:00 Venous) HUMAN RESOURCE CONSULTANT AM HUMAN RESOURCE CONSULTANT Laila Loco APRN, CNP LAB BLOOD ORDERABLES Performing Organization Address City/State/ZIP Code Phon e Number [facility] [place] [address] [place] [address] (ABNORMAL) Lipid panel (06/05/2018 8:53 AM HUMAN RESOURCE CONSULTANT) athologist Signature Cholesterol 171 0 - 199 06/05/2018 [facility] mg/dL 1:35 PM [facility] Comment: Recommended by National Cholesterol Education Program (ATP III) -------- Cholesterol Ranges -------- <200 ? Desirable 200-239 ? Borderline high >=240 ? High Triglycerides 142 0 - 149 mg/dL 06/05/2018 1:35 PM [facility] Comment: -------- TRIG Ranges -------- <150 ?Normal 150-199 ? Borderline high 200-499 ? High >=500 ? Very high HDL 37 (A) 40 - 60 mg/dL 06/05/2018 1:35 PM [facility] Comment: -------- HDL Ranges -------- <40 ?Low 40-59 ?Normal >=60 ? Optimal LDL Calculated 106 (A) 0 - 99 mg/dL 06/05/2018 1:35 PM [facility] Comment: -------- LDL Ranges -------- <100 ? Optimal 100-129 ?Near optimal/above op timal 130-159 ?Borderline high 160-189 ?High >=190 ?Very high Specimen Anatomical Collection Method Collection Time Receive d Time (Source) Location / / Volume Laterality Blood (Blood, 06/05/2018 8:53 AM 06/05/19 19 Venous) HUMAN RESOURCE CONSULTANT 12:43 PM HUMAN RESOURCE CONSULTANT Laila Loco APRN, CNP LAB BLOOD ORDERABLES Performing Organization Address City/State/ZIP Code Phon e Number [facility] [address] [place] [address] Ear cerumen removal (06/05/2018 8:00 AM HUMAN RESOURCE CONSULTANT) Narrative Laila Loco APRN, CNP - 019 8:00 AM HUMAN RESOURCE CONSULTANT Rosalee Simmons MA ? 06/12/2018 ??6:53 AM [...] unspecified whether [place] or transplant ed heart - Primary Hyperlipidemia, unspecified hyperlipidem ia type Gastroesophageal reflux disease without esophagitis Esophageal reflux Impacted cerumen of left ear Impacted cerumen Screening for diabetes mellitus Screening, anemia, deficiency, iron Screening for iron deficiency anemia Screening for prostate cancer Special screening for malignant neoplasm of prostate documented in this encounter Care Teams Stratigraphy Teacher Relationship Specialty Start Date End Date Laila Loco APRN, CNP PCP - General 12/09/17 01/10/20 100 [place] [address] documented as of this encounter
--- OUTSIDE RECORDS SUMMARY | 2021-12-18 08:04 | XMS_ITS | Encounter Summary ---
:1940 Author Organization [facility] Address [address] [place] [address] Care Team Providers Name Role Phone Laila Loco RAFTER CUTTING MACHINE OPERATOR, SALES ROUTE DRIVER Primary Care Provider [phone] Reason for Visit Reason Onset Date Comments MRI 08/10/2018 Encounter Details Date Type Department Care Team Description 08/10/2018 Telephone [place] Laila Loco, MRI [address] RAFTER CUTTING MACHINE OPERATOR, SALES ROUTE DRIVER [place] [address] [address] [facility] [address] [phone] [place], [place] [address] Social History Tobacco Use [...] CDT Please advise Telephone Encounter - Elsy Saundesr - 08/13/2018 11:54 AM CDT Patient is [...] CDT Neck and shoulder MRI being done [facility]. The patient is requesting pain meds as they told him these being done at the same time and it hurts for him to lay. Patient [facility]. documented in this encounter Plan of Treatment Not on filedocumented as of this encounter Visit Diagnoses Not on filedocumented in this encounter Care Teams Director Of Accounts Payable Relationship Specialty Start Date End Date Laila Loco APRN, SALES ROUTE DRIVER PCP - General 12/09/17 01/10/[address] [place] [address] [place] [id number] documented as of this encounter
--- OUTSIDE RECORDS SUMMARY | 2021-12-18 08:04 | XMS_ITS | Encounter Summary ---
:1940 Author Organization [facility] Address [address] [place] [address] Care Team Providers Name Role Phone Laila Loco AWS SOFTWARE DEVELOPMENT ENGINEER, BURLAP WORKER Primary Care Provider [phone] Reason for Visit Reason Onset Date Comments referral 07/31/2018 MRI shoulder, C spin e Encounter Details Date Type Department Care Team Description 07/31/2018 Telephone [place] Laila Loco, referral (MRI [address] AWS SOFTWARE DEVELOPMENT ENGINEER, BURLAP WORKER shoulder, C spine) [place], [place] [address] [address] [facility] [address] [phone] [place], [place] [address] Social History Tobacco Use [...] for Shoulder and C spine to [facility]. documented in this encounter Plan of Treatment Not on filedocumented as of this encounter Visit Diagnoses Not on filedocumented in this encounter Care Teams Sidewalk Repairer Relationship Specialty Start Date End Date Laila Loco APRN, BURLAP WORKER PCP - General 12/09/17 01/10/20 100 [place] [address] documented as of this encounter
--- OUTSIDE RECORDS SUMMARY | 2021-12-18 08:04 | XMS_ITS | Encounter Summary ---
:1940 Author Organization [facility] Address [address] [place] [address] Care Team Providers Name Role Phone Liala Loco APRN, CUT OUT WORKER Primary Care Provider [phone] Encounter Details Date Type Department Care Team Description 06/05/2018 Lab [place] Screening for diabetes melli tus; [address] Screening for prostate cance r; [place] [address] Screening, anemia, deficienc y, iron; [phone] Hyperlipidemia, unspecified hyperlipidemia type Social History Tobacco [...] for diabetes Results for this FILTRATION RATE TAVERN CAR ATTENDANT mellitus procedure ar e in the results section. CBC BRANCH OFFICE Routine 06/05/2018 8:53 AM Screening, anemia , Results for this W/DIFF TAVERN CAR ATTENDANT deficiency, iron procedure a re in the results section. PSA Routine 06/05/2018 8:53 AM Screening for prostate Results for this TAVERN CAR ATTENDANT cancer procedure are i n the results section. HEMOGLOBIN A1C Routine 06/05/2018 8:53 AM Screening for diabet es Results for this TAVERN CAR ATTENDANT mellitus procedure are i n the results section. LIPID PANEL Routine 06/05/2018 8:53 AM Hyperlipidemia, Result s for this TAVERN CAR ATTENDANT unspecified procedure are i n hyperlipidemia type the resu lts section. BASIC METABOLIC Routine 06/05/2018 8:53 AM Screening for diabe rachael Results for this PANEL TAVERN CAR ATTENDANT mellitus procedure are i n the results section. documented in this encounter Results (ABNORMAL) Glomerular filtration rate (GFR) (06/05/2018 8:53 AM TAVERN CAR ATTENDANT) athologist Signature GFR 59 (A) 06/05/2018 [facility] 9:07 AM TAVERN CAR ATTENDANT [facility]ENTER LAB[facility] >60 06/05/2018 [facility] [place] GFR 9:07 AM TAVERN CAR ATTENDANT [facility] Comment: GFR calculated from serum creatinine v alue Chronic Kidney Disease less than 60 mL/m in/1.73 m2 Kidney Failure less than 15 mL/min/1.73 m2 Note: effective 09/17/06 IDMS-Traceable MDRD Study Equation used. Specimen Anatomical Collection Method Collection Time Receive d Time (Source) Location / / Volume Laterality 06/05/2018 8:53 AM 9 8:53 TAVERN CAR ATTENDANT AM TAVERN CAR ATTENDANT Laila Loco APRN, IRA LAB BLOOD ORDERABLES Performing Organization Address City/State/ZIP Code Phon e Number [facility] [address] [place] [address] (ABNORMAL) Lipid panel (06/05/2018 8:53 AM TAVERN CAR ATTENDANT) athologist Signature Cholesterol 171 0 - 199 06/05/2018 [facility] mg/dL 1:35 PM [facility] Comment: Recommended by National Cholesterol Education Program (ATP III) -------- Cholesterol Ranges -------- <200 ? Desirable 200-239 ? Borderline high >=240 ? High Triglycerides 142 0 - 149 mg/dL 06/05/2018 1:35 PM [facility] Comment: -------- TRIG Ranges -------- <150 ?Normal 150-199 ? Borderline high 200-499 ? High >=500 ? Very high HDL 37 (A) 40 - 60 mg/dL 06/05/2018 1:35 PM [facility] Comment: -------- HDL Ranges -------- <40 ?Low 40-59 ?Normal >=60 ? Optimal LDL Calculated 106 (A) 0 - 99 mg/dL 06/05/2018 1:35 PM [facility] Comment: -------- LDL Ranges -------- <100 ? Optimal 100-129 ?Near optimal/above op timal 130-159 ?Borderline high 160-189 ?High >=190 ?Very high Specimen Anatomical Collection Method Collection Time Receive d Time (Source) Location / / Volume Laterality Blood (Blood, 06/05/2018 8:53 AM 06/05/19 19 Venous) TAVERN CAR ATTENDANT 12:43 PM TAVERN CAR ATTENDANT Laila Loco APRN, CUT OUT WORKER LAB BLOOD ORDERABLES Performing Organization Address City/State/ZIP Code Phon e Number [facility] [address] [place] [address] (ABNORMAL) Basic metabolic panel (06/05/2018 8:53 AM TAVERN CAR ATTENDANT) P athologist Signature Sodium 143 135 - 145 06/05/2018 [facility] mmol/L 9:07 AM TAVERN CAR ATTENDANT [place] Potassium 3.2 (L) 3.5 - 5.1 06/05/2018 [facility] mmol/L 9:07 AM TAVERN CAR ATTENDANT [place] Comment: . Chloride 101 98 - 107 mmol/L 06/05/2018 9:07 AM TAVERN CAR ATTENDANT [facility] [place] Comment: . CO2 32 (H) 22 - 31 mmol/L 06/05/2018 9:07 AM TAVERN CAR ATTENDANT OM [facility] [place] Comment: . Creatinine 1.2 0.6 - 1.4 mg/dL 06/05/2018 9:07 AM TAVERN CAR ATTENDANT [facility] [place] Comment: . BUN 14 5 - 25 mg/dL 06/05/2018 9:07 AM TAVERN CAR ATTENDANT [facility] [place] Comment: . Glucose 107 (H) 70 - 100 mg/dL 06/05/2018 9:07 AM TAVERN CAR ATTENDANT [facility] Calcium, Total,S 9.8 8.4 - 10.2 mg/dL 06/05/2018 9:07 AM TAVERN CAR ATTENDANT [facility] [place] Comment: . Fasting? Yes 06/05/2018 9:00 AM TAVERN CAR ATTENDANT [facility] CAN NON [place] Specimen Anatomical Collection Method Collection Time Receive d Time (Source) Location / / Volume Laterality Blood (Blood, 06/05/2018 8:53 AM 06/05/19 19 9:00 Venous) TAVERN CAR ATTENDANT AM TAVERN CAR ATTENDANT Laila Loco APRN, CUT OUT WORKER LAB BLOOD ORDERABLES Performing Organization Address City/State/ZIP Code Phon e Number [facility] [place] [address] [place] [address] (ABNORMAL) CBC Branch Off w/Diff (06/05/2018 8:53 AM TAVERN CAR ATTENDANT) Patholo gist Method Time Signature WBC 8.7 3.5 - 10.5 06/05/2018 [facility] K/uL 9:01 AM TAVERN CAR ATTENDANT [place] RBC 4.74 4.30 - 06/05/2018 [facility] 5.70 M/uL 9:01 AM TAVERN CAR ATTENDANT [place] Hemoglobin 14.5 13.5 - 06/05/2018 [facility] 17.5 g/dL 9:01 AM TAVERN CAR ATTENDANT [place] Hematocrit 43.0 38.0 - 06/05/2018 [facility] 50.0 % 9:01 AM TAVERN CAR ATTENDANT [place] Platelets 265 150 - 450 06/05/2018 [facility] [place] K/uL 9:01 AM TAVERN CAR ATTENDANT [place] MCV 90.7 81.2 - 06/05/2018 [facility] [place] 95.1 fL 9:01 AM TAVERN CAR ATTENDANT [place] MCH 30.6 26.0 - 06/05/2018 [facility] [place] 32.0 pg 9:01 AM TAVERN CAR ATTENDANT [place] MCHC 33.7 32.0 - 06/05/2018 [facility] 36.0 g/dL 9:01 AM TAVERN CAR ATTENDANT [place] RDW 13.8 11.8 - 06/05/2018 [facility] [place] 15.6 % 9:01 AM TAVERN CAR ATTENDANT [place] Lymphocytes % 15.8 (L) 18.0 - 06/05/2018 [facility] [place] 45.0 % 9:01 AM TAVERN CAR ATTENDANT [place] Mid-size Cells 8.1 3.3 - 10.1 06/05/2018 [facility] [place] % 9:01 AM TAVERN CAR ATTENDANT [place] Granulocytes/Urszula 76.1 (H) 45.8 - 06/05/2018 [facility] [place] trophils 73.7 % 9:01 AM TAVERN CAR ATTENDANT [place] Lymphocytes 1.4 0.9 - 2.9 06/05/2018 [facility] [place] Absolute K/uL 9:01 AM TAVERN CAR ATTENDANT [place] MIDS Absolute 0.7 0.2 - 0.8 06/05/2018 [facility] [place] K/uL 9:01 AM TAVERN CAR ATTENDANT [place] Granulocytes/Urszula 6.6 2.1 - 8.7 06/05/2018 [facility] [place] trophils K/uL 9:01 AM TAVERN CAR ATTENDANT [place] Absolute Specimen Anatomical Collection Method Collection Time Receive d Time (Source) Location / / Volume Laterality Blood (Blood, 06/05/2018 8:53 AM 06/05/19 19 9:00 Venous) TAVERN CAR ATTENDANT AM TAVERN CAR ATTENDANT Laila Loco APRN, CUT OUT WORKER LAB BLOOD ORDERABLES Performing Organization Address City/State/ZIP Code Phon e Number [facility] [place] [address] [place] [address] PSA (06/05/2018 8:53 AM TAVERN CAR ATTENDANT) P athologist Signature Total PSA 1.1 0.0 - 7.0 06/05/2018 [facility] ng/mL 2:05 PM TAVERN CAR ATTENDANT CENTER LABOR[facility]ORY Comment: The results from this [...] Blood (Blood, 06/05/2018 8:53 AM 06/05/19 Venous) TAVERN CAR ATTENDANT 12:45 PM TAVERN CAR ATTENDANT Laila Loco APRN, CNP LAB BLOOD ORDERABLES Performing Organization Address [facility] e Number [facility] [address] [place] [address] (ABNORMAL) Hemoglobin A1c (06/05/2018 8:53 AM TAVERN CAR ATTENDANT) Analysis Performed At [facility] Time Signature Hemoglobin A1C 5.8 (H) 4.0 - 5.6 06/05/2018 [place] % A1C 2:32 PM [facility] Comment: Reference Range [...] Blood (Blood, 06/05/2018 8:53 AM 06/05/19 Venous) TAVERN CAR ATTENDANT 12:43 PM TAVERN CAR ATTENDANT Laila Loco APRN, CNP LAB BLOOD ORDERABLES Performing Organization Address [facility] [address]/[facility] Phon e Number [facility] [address] [place] [address] documented in this encounter Visit Diagnoses Diagnosis Screening for diabetes mellitus Screening for prostate cancer Special screening for malignant neoplasm of prostate Screening, anemia, deficiency, iron Screening for iron deficiency anemia Hyperlipidemia, unspecified hyperlipidem ia type documented in this encounter Care Teams Certified Hearing Instrument Dispenser Relationship Specialty Start Date End Date Laila Loco, SENIOR MANAGER QUALITY ASSURANCE, CUT OUT WORKER PCP - General 12/09/17 01/10/20 100 [facility] [place] [address] documented as of this encounter
--- OUTSIDE RECORDS SUMMARY | 2021-12-18 08:04 | XMS_ITS | Encounter Summary ---
:1940 Author Organization [facility] Address [address] [place] [address] Care Team Providers Name Role Phone Laila Loco CLINICAL DOCUMENTATION CONSULTANT, CATALYST MANUFACTURING OPERATOR Primary Care Provider [phone] Encounter Details Date Type Department Care Team Description 06/05/2018 Orders Only [place] Laila Loco, Hypokalemia (Primary [address] CLINICAL DOCUMENTATION CONSULTANT, CATALYST MANUFACTURING OPERATOR Dx) [place], [place] 100 [facility] [address] [place] [address] Social History Tobacco Use Types Packs/Day Years [...] Hypopotassemia documented in this encounter Care Teams Dovetailer Relationship Specialty Start Date End Date Laila Loco, CLINICAL DOCUMENTATION CONSULTANT, CATALYST MANUFACTURING OPERATOR PCP - General 12/09/17 01/10/20 100 [facility] [place] [address] documented as of this encounter
--- OUTSIDE RECORDS SUMMARY | 2021-12-18 08:04 | XMS_ITS | Encounter Summary ---
:1940 Author Organization [facility] Address [address] [place] [address] Care Team Providers Name Role Phone Laila Loco APRN, IRA Primary Care Provider [phone] Reason for Referral Imaging (Routine) - Closed Specialty Diagnoses / Procedures Referred By Contact Refer red To Contact Radiology Diagnoses Cervical pain (neck) Laila Loco APRN, Procedures MRI Cervical Spine wo IV Contrast FLOWER SHOP LABORER/DESIGNER [address] [place] [address] Referral ID Status Reason Start Date Expiration Date Visits Requ ested Visits Authorized [id number] Closed 07/30/2018 01/26/2019 1 1 Imaging (Routine) - Closed Specialty Diagnoses / Procedures Referred By Contact Refer red To Contact Radiology Diagnoses Chronic left shoulder pain Laila Loco APRN, Procedures MRI Shoulder Left wo IV Contrast FLOWER SHOP LABORER/DESIGNER [address] [place] [address] Referral ID Status Reason Start Date Expiration Date Visits Requ ested Visits Authorized [id number] Closed 07/30/2018 01/26/2019 1 1 Reason for Visit Reason Comments Shoulder Pain Left Encounter Details Date Type Department Care Team Description 07/30/2018 Office Visit Laila Wilson Cervical pain (neck) (Primar y Dx); [address] M, CHILD CARE CENTRE DIRECTOR, FLOWER SHOP LABORER/DESIGNER Chronic left shoulder pain Margarito Love YARIEL [address] [facility] [address] [place] [address] Social History Tobacco Use Types Packs/Day Years [...] encounter Patient Instructions Patient InstructionsChsulema Loco APRN, FLOWER SHOP LABORER/DESIGNER - 07/30/2018 9:20 AM CDT Will call [...] HPI: The patient is a pleasant 78-year-old dorsx-piog-lyyzasni male presenting ambulatory to the [facility] today with left shoulder discomfort which started [...] 2008, after slipping on ice in a [employer] parking lot. The patient reports he wore [...] positions, particularly abduction. Positive Riojas's test. X-ray it desktop support technician stated he had a difficult time [...] of his left shoulder and neck through [facility] in [place]. The patient will be notified of the impressions. The patient signed a release of information to obtain a copy of his left shoulder and neck x-ray to be burned to a CD to take with him if he is referred to orthopedics, and requests to be referred to Dr. oDdson at [facility] in [place] who he has a relationship with. The [...] fra cture. IMPRESSION: Minimal osteoarthritis. Laila Loco CHILD CARE CENTRE DIRECTOR, FLOWER SHOP LABORER/DESIGNER IMG XR PROCEDURES X-ray Cervical Spine 2-3 [...] for carotid artery disease Laila Loco APRN, FLOWER SHOP LABORER/DESIGNER IMG XR PROCEDURES documented in this encounter Visit Diagnoses Diagnosis Cervical pain (neck) - Primary Cervicalgia Chronic left shoulder pain Pain in joint, shoulder region documented in this encounter Care Teams Hall Cleaner Relationship Specialty Start Date End Date Laila Loco APRN, FLOWER SHOP LABORER/DESIGNER PCP - General 12/09/17 01/10/20 [address] [place] [address] documented as of this encounter
--- OUTSIDE RECORDS SUMMARY | 2021-12-18 08:05 | XMS_ITS | Encounter Summary ---
:1940 Author Organization [facility] Address [address] [place] [address] Care Team Providers Name Role Phone Silver [...] documented as of this encounter Care Teams Aircraft Painter Apprentice Relationship Specialty Start Date End Date Silver Givens M.D. PCP - General Family Medicine 11/10/19 12/09/[address] [place] [phone] documented as of this encounter
--- OUTSIDE RECORDS SUMMARY | 2021-12-18 08:05 | XMS_ITS | Clinical Summary ---
:1940 Author Organization [facility] Address [address] [place] [address] Care Team Providers Name Role Phone Elsewhere, Pcp Primary Care Provider Unavailable Source Comments Patient records contain information from all sites at [facility]. For routine questions regarding patient records, call [phone] during business hours, M-F 8:00 AM - 5:00 PM Central Time. Record requests for emergency care only can be directed to [phone] at any time.[facility] Allergies Active Allergy Reactions Severity Noted Date [...] Added automatically from request for mayte hardy [id number] Anemia Iron Deficiency Blood Loss Chronic 09/11/2020 Overview: Added automatically from request for mayte hardy [id number] Stool Positive Occult Blood 09/11/2020 Overview: Added automatically from request for mayte hardy [id number] Aftercare Total Shoulder Arthroplasty 01/25/2020 Primary Osteoarthritis Shoulder Left 12/20/2019 Overview: Added automatically from request for mayte hardy [id number] Hyperglycemia 12/14/2019 Gastroesophageal Reflux Disease Without Esophagitis Loss Hearing Bilateral 12/14/2019 Osteoporosis Without Pathological Fracture 11/27/2017 Peripheral Vascular Disease 07/02/2017 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 Overview: Coronary Artery Disease (CAD) [place] Ves marlys Deficiency Vitamin D 03/10/2009 Stroke Cerebrovascular Accident Personal History 06/10 Hyperlipidemia 10/11/2002 Resolved Problems Problem Noted Date Resolved Date Non-ST Elevation Myocardial Infarction 08/15/2018 0 12/14/2019 Cataract Senile Nuclear Sclerosis Right 05/01/2017 12/14/2019 Overview: Added automatically from request for mayte hardy [id number] Cataract Senile Nuclear Sclerosis Left 05/01/2017 0 12/14/2019 Overview: Added automatically from request for mayte hardy [id number] Fracture Vertebra Thoracic Closed Initial 04/20/2008 12/14/2019 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 01/18/2020 Encounters Date Type Specialty Care Team Description Hospital Encounter Cardiovascular Disease Angella Costello Abnormal Stress Test; 2 Marisela Starr Atherosclerotic Heart Disease [place] Coronary Artery With Other Forms Angina Pectoris (Stable Angina/Angina Of Exertion) ([facility]); Abnormal Stress Test Surgery Cardiovascular Disease Angella Costello Coron irvin Angiography 2 Marisela Starr Lab Laboratory Medicine Darvin Corral Examination For Viral Disease; 2 H, M.DLara Contact With An d (Suspected) Exposure To COVID-19 Office Visit Cardiovascular Disease Darvin Corral normal Stress Test (Primary Dx); 2 H, MLaraDLara Atherosclerotic Heart Disease [place] Coronary Artery With Other Forms Angina Pectoris (Stable Angina/Angina Of Exertion) ([facility]) Abstract Family Medicine Provider, 2 Historical Hospital Encounter Cardiovascular Disease Aj Mitchell Pain Chest; 2 R, P.A.-C., Atherosclerotic Heart Disease Of [place] Coronary Artery Without Angina Pectoris M.S. Clinical Cardiovascular Disease Subassembly SupervisorLesley 2 Communication Marisela Kwon Orders Only Cardiovascular Disease Nic Mitchell Thai n Chest (Primary Dx); 2 R, P.A.-C., Atherosclerotic Heart Disease Of [place] Coronary Artery Without Angina Pectoris M.S. Emergency [...] Completed 12/10/2021 Medical Devices Implanted Type Area Embedded Software Architect Device Shelf Model / Identifier Expiration Date Ser ial / Lot Xience Stent 3.5 X 18 - Figueroa [id number] Cardiac Ann Implanted: Qty: 1 on 12/19/2011 Stent Description: Device Embedded Software Architect - Abbot t Vascular. Device Status Text - [id number]. Stnt Synergy Venkata Rx3x16 - [id number] Cardiac N/A: Tyaskin 06/07/2020 [id number] / Implanted: Qty: 1 on 08/15/2018 by Jacques Barraza M.D. at [facility] Stent Coronary Scientific / [id number] Description: LAD Patch Hemasheild Knitted 1x3 - Figueroa 6590 Mesh or Patch Getin ge Group Implanted: Qty: 1 on 08/21/1999 Description: Device Embedded Software Architect - [employer] Device Status Text - [id number]. Tencnis Iol Ocular Lens Right: Eye Ann 03/25/2021 [id number] 0 / Implanted: Qty: 1 on 07/07/2017 by Raymundo Kinney am, M.D. at [facility] [id number] / [id number] Ocular Lens Ann 02/24/2021 [id number] / Implanted: Qty: 1 on 07/21/2017 by Raymundo Kinney am, M.D. at [facility] [id number] / Shoulder Implant-03/23/2015 Shoulder Right: Implanted: 03/23/2015 by Marv Dodson M.D. (Quantity no t on file) Implant Shoulder Shldr Lnr Trb Rvrs +0x36 - Sna - [id number] Shoulder Left: Lias [id number] 04/03/2026 [id number] / Implanted: Qty: 1 on 01/25/2020 by Marv Roman M.D. at [facility] Implant Shoulder Biomet NA / [id number] Procedures Procedure Name Priority Date/Time Associated Comments Diagnosis CARDIAC Routine 12/10/2021 Abnormal Stress Results for CATHETERIZATION 10:59 AM CDT Test this procedure Atherosclerotic are in the Heart Disease results [place] Coronary section. Artery With Other Forms Angina [...] CONTRAST Heart Disease Of are in the [place] Coronary results Artery Without section. Angina Pectoris [...] of2 resultswithin the time period is included. [facility] Method Time Signature SARS CoV-2 Swab, 12/07/2021 [...] Drug Administration an d is used per track laminating machine tender's instructions. Performance characteristics were verified by [facility] in a manner consistent with CLIA requirements. Visit the CDC website: https://www.cdc.g ov/coronavirus/ for the most recent guidelines on Coron avirus testing. Fact Sheet for Healthcare Providers: https://www.fda.gov/media/048443/downloa d Fact Sheet for Patients: https://www.fda.gov/media/525807/downloa d Specimen Anatomical Collection Method Collection Time Receive d Time (Source) Location / / Volume Laterality Varies 12/07/2021 11:30 12/07/2021 (Nasopharynx) AM CDT 12:27 PM CDT Darvin Corral M.D. LAB MICROBIOLOGY - GENERAL O RDERABLES Performing Organization Address City/State/ZIP Code Phon e Number [facility] - [address] [place] [address] [facility] [place] [address] [facility] 200 [facility] ECHO STRESS 2D WITH COLOR, LIMITED DOPPLER AND CONTRAST (12/05/2021 1:49 PM CDT) [facility] Method Time Signature Ejection Fraction 60 MC [...] Echocardiography Contrast Administration P rotocol Reference Document [id number]. P atient met an inclusion criterion and did not have contraindications in screening sections. For the complete report, see the Order-L Endoclear Documents. Narrative 12/05/2021 3:16 PM CDT For [...] For the complete report, see the Order-L Endoclear Documents. Final Impressions 1. Exercise echocardiogram positive [...] per Echocardiography Contrast Administration Protocol Reference Document [id number]. Patient met an inclusion criterion and did not have contraindications in screening sections. For the complete report, see the Order-L evel Documents. Nic Mitchell P.A.-C. M.S. CV ECHO PROCEDURES Troponin T, 2H/6H, 5th Gen (11/30/2021 4:30 PM CDT) [facility] Method Time Signature Troponin T, 2 12 <=15 ng/L 11/30/2021 [facility] hr, 5th gen 4:56 PM CDT 2H Delta 0 ng/L 11/30/2021 [facility] 4:56 PM CDT 2H Delta Not Changing 11/30/2021 [facility] Interp 4:56 PM CDT Troponin T, 6 CANCELED ng/L 11/30/2021 [facility] hr, 5th gen 4:56 PM CDT Comment: Result canceled by the jessica Martniez Anatomical Collection Method Collection Time Receive d Time (Source) Location / / Volume Laterality Blood (Blood, 11/30/2021 4:30 PM 12/01/19 22 4:33 Venous) CDT PM CDT Narrative [facility] - 11/30/2021 4:56 PM CDT Specimen Information: Specimen ID: [id number] Specimen Type: Blood Specimen Collection Start Date: 12/01/19 22 ??4:30 PM Specimen Received Date: 11/30/2021 ??4:3 3 PM Specimen ID: [id number] Specimen Type: Blood Specimen Collection Start Date: 12/01/19 22 ??4:56 PM Specimen Received Date: 11/30/2021 ??4:5 6 PM Hamzah Hernández M.D. LAB BLOOD TROPONIN Performing Organization Address City/State/ZIP Code Phon e Number [facility] - [address] [place] [address] [facility] [place] [address] [facility] [address] DX Chest [...] Hamzah Hernández M.D. IMG DIAGNOSTIC IMAGING PROCE [facility] Troponin T, Baseline, 5th gen (11/30/2021 2:38 PM CDT) P athologist Signature Troponin T, 12 <=15 ng/L 11/30/2021 [facility] Baseline, 5th 3:06 PM CDT gen Specimen Anatomical Collection Method Collection Time Receive d Time (Source) Location / / Volume Laterality Blood (Blood, 11/30/2021 2:38 PM 12/01/19 22 2:44 Venous) CDT PM CDT Hamzah Hernández M.D. LAB BLOOD TROPONIN Performing Organization Address City/[facility] Phon e Number [facility] - [address] (ABNORMAL) Hepatic Function Panel (11/30/2021 2:38 [...] M.D. LAB BLOOD ADD-ON Performing Organization Address City/[facility] Code Phon e Number [facility] - [address] [place], [place] [address] [place] [address] NT-Pro B-Type Natriuretic Peptide (BNP) (11/30/2021 2:38 PM CDT) P athologist Signature NT-Pro BNP 227 <=540 pg/mL 11/30/2021 [facility] 3:08 PM CDT Comment: NT-proBNP values less [...] M.D. LAB BLOOD ADD-ON Performing Organization Address [facility] Phon e Number [address] Prothrombin Time (PT) (11/30/2021 2:38 PM CDT) P athologist Signature Prothrombin 12.5 9.4 - 12.5 11/30/2021 [facility] Time, P sec 2:53 PM CDT INR 1.1 0.9 - 1.1 11/30/2021 [facility] 2:53 PM CDT Comment: ----ADDITIONAL INFORMATION---- Standard intensity warfarin therapeutic range: 2.0 to 3.0 ?? High intensity warfarin therapeutic rang e: 2.5 to 3.5 Specimen Anatomical Collection Method Collection Time Receive d Time (Source) Location / / Volume Laterality Blood (Blood, 11/30/2021 2:38 PM 12/01/19 2:44 Venous) CDT PM CDT Hamzah Hernández M.D. LAB BLOOD ADD-ON Performing Organization Address [facility] Phon e Number [facility] - [address] [place] [address] (ABNORMAL) CBC with Differential, Blood (11/30/2021 2:38 [...] Organization Address City/State/ZIP Code Phon e Number [facility] - [address] [place], [place] [address] [place] [address] [facility] [address] Lipase (11/30/2021 2:38 PM CDT) athologist Signature Lipase, S 32 13 - 60 U/L 11/30/2021 3:38 DTL PM CDT Specimen Anatomical Collection Method Collection Time Receive d Time (Source) Location / / Volume Laterality Blood (Blood, 11/30/2021 2:38 PM 12/01/19 3:09 Venous) CDT PM CDT Hamzah Hernández M.D. LAB BLOOD ADD-ON Performing Organization Address City/State/ZIP Code Phon e Number [facility] - [address] [place], [place] [address] [facility] [place] [place] [address] [facility] 200 [facility] Basic Metabolic Panel (11/30/2021 2:38 [...] CDT eGFR-Black/Afri 71 >=60 11/30/2021 [facility] can Bolivian mL/min/BSA 3:02 PM CDT Comment: ----ADDITIONAL INFORMATION---- [...] M.D. LAB BLOOD ADD-ON Performing Organization Address City/[facility]/ZIP Code Phon e Number [facility] - [address] [place], [place] [address] [facility] [place] [address] [facility] [address] ECG 12 Lead (11/30/2021 2:09 PM CDT) P athologist Signature Ventricular Rate 54 BPM MUSE ECG/Min ND Interval 178 ms MUSE QRSD Interval 84 ms MUSE QT Interval 444 ms MUSE QTC Interval 421 ms MUSE P [place] 54 degrees MUSE R [place] 2 degrees MUSE T Wave [place] 30 degrees MUSE Specimen Anatomical Collection Method [...] Hernández M.D. ECG ORDERABLES Performing Organization Address City/[facility]/ZIP Code Phon e Number MUSE MUSE NA [...] e / Group Dates MEDICARE MEDICARE A [id number] 2006-Pres [address] [place] [address] BLUE CROSS BCBS BILL [employer] [id number] 2016-Pres [phone] PO LIZBET X Cost Share BLUE SHIELD BLUE COST ent [phone] [place] [address] St (Home) YARIEL Amaya [phone] Advance Directives For more information, please contact: [phone] Documents on File Type Date Recorded Patient Diesel Lube Tech Explanati on Advance Directives 12/05/2021 Neetu Noblesolleen [...] Agent Ginette Dodson Daughter First [facility] Health Care Agent Jesus Vines Son [facility] Agent Care Teams National Opelint Analyst Relationship Specialty Start Date End Date Elsewhere, Pcp PCP - General Internal Medicine 12/10/21
--- OUTSIDE RECORDS SUMMARY | 2021-12-18 08:05 | XMS_ITS | Encounter Summary ---
:1940 Author Organization [facility] Address [address] [place] [address] Care Team Providers Name Role Phone Silver Givens M.D. Primary Care Provider Encounter Details Date Type Department Care Team Description 09/18/2021 Clinical Department of Fabien Gillette, Communication Otorhinolaryngology in [place], [place] [address] [place] [address] [address] [place] [address] [place], [place] [phone] Social History Tobacco Use Types Packs/Day [...] documented as of this encounter Care Teams Health Information Coder Relationship Specialty Start Date End Date Silver Givens M.D. PCP - General Family Medicine 11/10/19 12/09/[address] [place] [phone] documented as of this encounter
--- OUTSIDE RECORDS SUMMARY | 2021-12-18 08:05 | XMS_ITS | Encounter Summary ---
:1940 Author Organization [facility] Address [address] [place] [address] Care Team Providers Name Role Phone Silver Givens M.D. Primary Care Provider Reason for Referral Specialty Diagnoses / Procedures Referred By Contact Refer red To Contact Silver Givens M.D. [address] [phone] Referral ID Status Reason Start Date Expiration Date Visits Requ ested Visits Authorized Encounter Details Date Type Department Care Team Description 09/18/2021 Orders Only [facility] P[facility] Jasmyn Givens M.D. [address] [place] [phone] (Wo rk) Social History Tobacco Use [...] documented as of this encounter Care Teams Needle Setter Relationship Specialty Start Date End Date Silver Givens M.D. PCP - General Family Medicine 11/10/19 12/09/[id number] [place] [phone] documented as of this encounter
--- OUTSIDE RECORDS SUMMARY | 2021-12-18 08:05 | XMS_ITS | Encounter Summary ---
:1940 Author Organization [facility] Address [address] [place] [address] Care Team Providers Name Role Phone Silver Givens M.D. Primary Care Provider Encounter Details Date Type Department Care Team Description 09/29/2020 Surgery Department of Gastroenterology Wood Uribe M.D. COLONOSCOPY-P in [facility] [address] [facility] [address] [place] [phone] (Wo rk) Social History Tobacco Use Types [...] CDTAssociated Order(s): UPPER GI ENDOSCOPY [facility] Patient Name: Obey Vines Procedure Date: [...] 10:10 AM CDTAssociated Order(s): COLONOSCOPY [facility] Patient Name: Obey Vines Procedure Date: [...] bowel preparation was evaluated using the BBPS ([place] Bowel Preparation Scale) with scores of: Right [...] Component Value Ref Test Analysis Performed At [facility] Method Time Signature 10/04/2020 ECLR [...] Organization Address City/State/ZIP Code Phon e Number [facility]- [address] [place] [address] [phone] [facility] [place] [address] [address] UPPER GI ENDOSCOPY (09/29/2020 10:14 AM CDT) Specimen (Source) Anatomical Location Collection Method / Collectio n Time Received Time / Laterality Volume Narrative This result has an attachment that is no t available. Procedure Note Wood Car M.D. - 09/29/2020 10:14 AM CDT [facility] Patient Name: Obey Vines Procedure Date: 09/29/2020 10:14 AM Date of : 1940 Age: 80 Gender: Male Procedure: Upper GI endoscopy Providers: Wood Car MD, Coy Forbes (Ordering Provider) Referring Provider: Coy Frobes Pre-op Diagnoses: Iron deficiency anemia Post-op Diagnoses: [...] - 09/29/2020 10:10 AM CDT [facility] Patient Name: Obey Vines Procedure Date: [...] preparation was ev aluated using the BBPS ([place] Bowel Preparation Scal e) with scores of: [...] documented as of this encounter Care Teams Athletic Instructor Relationship Specialty Start Date End Date Silver Givens M.D. PCP - General Family Medicine 11/10/19 12/09/[address] [place] [phone] documented as of this encounter
--- OUTSIDE RECORDS SUMMARY | 2021-12-18 08:05 | XMS_ITS | Encounter Summary ---
:1940 Author Organization [facility] Address [address] [place] [address] Care Team Providers Name Role Phone Silver [...] documented as of this encounter Care Teams Telegraphic Typewriter Installer Relationship Specialty Start Date End Date Silver Givens M.D. PCP - General Family Medicine 11/10/19 12/09/[address] [place] [phone] documented as of this encounter
--- OUTSIDE RECORDS SUMMARY | 2021-12-18 08:05 | XMS_ITS | Encounter Summary ---
:1940 Author Organization [facility] Address [address] [place] [address] Care Team Providers Name Role Phone Silver Givens M.D. Primary Care Provider Encounter Details Date Type Department Care Team Description 12/07/2021 Abstract [facility] Provider, Historical Social History Tobacco Use [...] documented as of this encounter Care Teams Band Attacher Relationship Specialty Start Date End Date Silver Givens M.D. PCP - General Family Medicine 11/10/19 12/09/[id number] [place] [phone] documented as of this encounter
--- OUTSIDE RECORDS SUMMARY | 2021-12-18 08:05 | XMS_ITS | Encounter Summary ---
:1940 Author Organization [facility] Address [address] [place] [address] Care Team Providers Name Role Phone Silver Givens M.D. Primary Care Provider Reason for Referral Outpatient (Routine) - Authorized Specialty Diagnoses / Procedures Referred By Contact Refer red To Contact Cardiovascular Disease Darvin Corral [place] [address] [place] M.D. [address] [place] [address] Referral ID Status Reason Start Date Expiration Date Visits V isits Requested Authorized [id number] Authorized 12/07/2021 12/07/2022 1 1 Reason for Visit Outpatient (Routine) - Closed Specialty Diagnoses / Procedures Referred By Contact Refer red To Contact Cardiovascular Disease Nic Mitchell [place] P.A.-C., MLaraSLara [address] [place] [address] Referral ID Status Reason Start Date Expiration Date Visits Requ ested Visits Authorized [id number] Closed 12/03/2021 12/03/2022 1 1 Encounter Details Date Type Department Care Team Description 12/07/2021 Office Visit Department of Darvin Corral Abnormal St ress Test (Primary Dx); Cardiovascular Medicine Marisela Gallardo Atherosclerotic Heart Disease [place] 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) ([facility]) in [facility] tanner rotary drum continuous process [address] [place] [phone] [phone] Social History Tobacco Use Types Packs/Day Years [...] Stress Test - Primary Atherosclerotic Heart Disease [place] 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) (HCC) documented in this encounter Additional Health Concerns Infection Onset Date Last Indicated Resolved Time COVID19 Pending 12/07/2021 12/07/2021 12/07/2021 4:30 PM CDT Assessment Noted Time PHQ-9 Depression Total Score: 2 03/08/2015 11:16 AM CS T documented as of this encounter Care Teams Training And Development Head Relationship Specialty Start Date End Date Silver Givens M.D. PCP - General Family Medicine 11/10/19 12/09/[id number] [place] [phone] documented as of this encounter
--- OUTSIDE RECORDS SUMMARY | 2021-12-18 08:05 | XMS_ITS | Encounter Summary ---
:1940 Author Organization [facility] Address [address] [place] [address] Care Team Providers Name Role Phone Silver Givens M.D. Primary Care Provider Encounter Details Date Type Department Care Team Description 12/07/2021 Lab Department of Laboratory Darvin Corral, Screening Examination For Viral Disease; Medicine and Pathology, MMarry Contact With And (Suspected) Exposure To COVID-19 [facility], in [address] [place] [phone] [place] [address] [phone] Social History Tobacco Use Types Packs/Day Years [...] PCR, Varies Asymptomatic (12/07/2021 11:30 AM CDT) [facility] Method Time Signature SARS CoV-2 Swab, 12/07/2021 [...] Drug Administration an d is used per pantograph transferrer's instructions. Performance characteristics were verified by [facility] in a manner consistent with CLIA requirements. Visit the CDC website: https://www.cdc.g ov/coronavirus/ for the most recent guidelines on Coron avirus testing. Fact Sheet for Healthcare Providers: https://www.fda.gov/media/525326/downloa d Fact Sheet for Patients: https://www.fda.gov/media/084801/downloa d Specimen Anatomical Collection Method Collection Time Receive d Time (Source) Location / / Volume Laterality Varies 12/07/2021 11:30 12/07/2021 (Nasopharynx) AM CDT 12:27 PM CDT Darvin Corral M.D. LAB MICROBIOLOGY - GENERAL O KIMI Performing Organization Address City/State/ZIP Code Phon e Number [facility] - [address] [place], [place] [address] [facility] [place] [address] Laboratories-[facility] [address] documented in this [...] documented as of this encounter Care Teams Tipple Operator Relationship Specialty Start Date End Date Silver Givens M.D. PCP - General Family Medicine 11/10/19 12/09/[address] [phone] documented as of this encounter
--- OUTSIDE RECORDS SUMMARY | 2021-12-18 08:05 | XMS_ITS | Encounter Summary ---
:1940 Author Organization [facility] Address [address] [place] [address] Care Team Providers Name Role Phone Elsewhere, Pcp Primary Care Provider Unavailable Reason for Referral Outpatient (Routine) - Closed Specialty Diagnoses / Procedures Referred By Contact Refer red To Contact Diagnoses Pain Chest Atherosclerotic Heart Disease Of [place] Coronary Artery Without Angina Pectoris Nic Mitchell P.A.-C., [facility] Procedures Echo Stress M.S. [address] [place] [address] Referral ID Status Reason Start Date Expiration Date Visits Requ ested Visits Authorized [id number] Closed 12/03/2021 12/03/2022 1 1 Outpatient (Routine) - Closed Specialty Diagnoses / Procedures Referred By Contact Refer red To Contact Cardiovascular Disease Nic Mitchell, [facility] Laura, M.SLara [address] [place] [address] Referral ID Status Reason Start Date Expiration Date Visits Requ ested Visits Authorized [id number] Closed 12/03/2021 12/03/2022 1 1 Encounter Details Date Type Department Care Team Description 12/03/2021 Orders Only Department of Nic Mitchell Pain Chest ( Primary Dx); Cardiovascular Medicine Laura Patel Athe rosclerotic Heart Disease Of [place] Coronary Artery Without Angina Pectoris in [facility] M.S. [address] [place] [address] [phone] Social History Tobacco Use Types Packs/Day Years [...] DOPPLER AND CONTRAST (12/05/2021 1:49 PM CDT) [facility] gist Method Time Signature Ejection Fraction 60 [...] Echocardiography Contrast Administration P rotocol Reference Document [id number]. P atient met an inclusion criterion and [...] per Echocardiography Contrast Administration Protocol Reference Document [id number]. Patient met an inclusion criterion and did not have contraindications in screening sections. For the complete report, see the Order-L evel Documents. Nic Mitchell P.A.-C. M.S. CV ECHO PROCEDURES documented in this encounter Visit Diagnoses Diagnosis Pain Chest - Primary Atherosclerotic Heart Disease Of [place] Coronary Artery Without Angina Pectoris Pain Chest Atherosclerotic Heart Disease Of [place] Coronary Artery Without Angina Pectoris documented in this encounter Additional Health Concerns Infection Onset Date Last Indicated Resolved Time COVID19 Pending 12/04/2021 12/04/2021 12/04/2021 3:27 PM CDT COVID19 Pending 12/07/2021 12/07/2021 12/07/2021 4:30 PM CDT Assessment Noted Time PHQ-9 Depression Total Score: 2 03/08/2015 11:16 AM CS T documented as of this encounter Care Teams Development Team Lead Relationship Specialty Start Date End Date Elsewhere, Pcp PCP - General Internal Medicine 12/10/21 documented as of this encounter
--- OUTSIDE RECORDS SUMMARY | 2021-12-18 08:05 | XMS_ITS | Encounter Summary ---
:1940 Author Organization [facility] Address [address] [place] [address] Care Team Providers Name Role Phone Silver Givens M.D. Primary Care Provider Reason for Visit Reason Comments Abdominal Pain Chest Pain Encounter Details Date Type Department Care Team Description 11/30/2021 Emergency [facility] Hamzah Hernández, Chasidy ominal Pain (Primary Dx); Emergency Department M.D. Coronary Artery Disease With Stable Olivia na ([facility]) [address] [place] [phone] [phone] (Wo rk) Social History Tobacco Use Types [...] through Care Everywhere. Coronary Artery Disease Male (Syrian)documented in this encounter Medications at Time of [...] chest pain. documented as of this encounter Consult Notes Nic Mitchell P.A.-C., M.S. - 11/30/2021 3:33 PM CDT CARDIOLOGY CONSULT NOTE [facility] Manager: Dr. 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 CATH ANGIOGRAM N/A 08/15/2018 Procedure: Coronary Angiography; Surgeon: Jacques Barraza M.D.; Location: [facility] CATH INTERVENTION N/A 08/15/2018 Procedure: Stent Placement; Surgeon: Jacques Barraza M.D.; Location: [facility] CATH PTCA N/A 08/15/2018 Procedure: Percutaneous Coronary Angioplasty; Surgeon: Jacques Barraza M.D.; Location: [facility] COLONOSCOPY N/A 09/29/2020 Procedure: COLONOSCOPY-P; Surgeon: Wood Car M.D.; Location: [facility] GI LAB CORONARY ANGIOPLASTY WITH STENT PLACEMENT N/A 12/19/2011 >1. Percutaneous coronary intervention with drug-eluting stent following a lytics for STEMI (lytics DECOMPRESSION OF MEDIAN NERVE N/A 10/17/2006 Carpal tunnel release ESOPHAGOGASTRODUODENOSCOPY N/A 09/29/2020 Procedure: ESOPHAGOGASTRODUODENOSCOPY; Surgeon: Wood Car M.D.; Location: [facility] GI LAB EXTRACTION CATARACT WITH INSERTION INTRAOCULAR LENS Right 07/07/2017 Procedure: EXTRACTION CATARACT WITH INSERTION INTRAOCULAR LENS; Surgeon: Raymundo Muniz M.D.; Location: [facility] OR EXTRACTION CATARACT WITH INSERTION INTRAOCULAR LENS Left 07/21/2017 Procedure: EXTRACTION CATARACT WITH INSERTION INTRAOCULAR LENS; Surgeon: Raymundo Muniz M.D.; Location: [facility] OR MOHS SURGERY N/A 06/23/2006 >Mohs [...] male with a history of CAD prior [place], s/p stenting Please see HPI for further [...] chest pain for the past month. Thepatient's DOG WALKER from [place] with the [facility] suggested that patient be seen based on [...] performed and their clinic outside of the [place] system earlier today, however. The patient has [...] in MDM. Case reviewed with other health career technical education teacher, including Cardiology. ED Course as of 11/30/212023Nov [...] 2H/6H, 5th Gen (11/30/2021 4:30 PM CDT) [facility] Method Time Signature Troponin T, 2 12 [...] 12/01/19 4:33 Venous) CDT PM CDT Narrative [facility] - 11/30/2021 4:56 PM CDT Specimen Information: Specimen ID: [id number] Specimen Type: Blood Specimen Collection Start Date: 12/01/19 ??4:30 PM Specimen Received Date: 11/30/2021 ??4:3 3 PM Specimen ID: [id number] Specimen Type: Blood Specimen Collection Start Date: 12/01/19 ??4:56 PM Specimen Received Date: 11/30/2021 ??4:5 6 PM Hamzah Hernández M.D. LAB BLOOD TROPONIN Performing Organization Address City/State/ZIP Code Phon e Number [facility] - [address] [place], [place] [address] [place] [address] [facility] [address] DX Chest AP [...] Hernández M.D. IMG DIAGNOSTIC IMAGING PROCE [facility] Troponin T, Baseline, 5th gen (11/30/2021 2:38 PM CDT) athologist Signature Troponin T, 12 <=15 ng/L 11/30/2021 [facility] Baseline, 5th 3:06 PM CDT gen Specimen Anatomical Collection Method Collection Time Receive d Time (Source) Location / / Volume Laterality Blood (Blood, 11/30/2021 2:38 PM 12/01/19 22 2:44 Venous) CDT PM CDT Hamzah Hernández M.D. LAB BLOOD TROPONIN Performing Organization Address City/State/ZIP Code Phon e Number [facility] - [address] [place], [place] [address] [place] [address] [facility] [address] Prothrombin Time (PT) (11/30/2021 2:38 PM CDT) P athologist Signature Prothrombin 12.5 9.4 - 12.5 11/30/2021 [facility] Time, P sec 2:53 PM CDT INR 1.1 0.9 - 1.1 11/30/2021 [facility] 2:53 PM CDT Comment: ----ADDITIONAL INFORMATION---- Standard intensity warfarin therapeutic range: 2.0 to 3.0 ?? High intensity warfarin therapeutic rang e: 2.5 to 3.5 Specimen Anatomical Collection Method Collection Time Receive d Time (Source) Location / / Volume Laterality Blood (Blood, 11/30/2021 2:38 PM 12/01/19 22 2:44 Venous) CDT PM CDT Hamzah Hernández M.D. LAB BLOOD ADD-ON Performing Organization Address [facility] Phon e Number [facility] - [address] [address] NT-Pro B-Type Natriuretic Peptide (BNP) (11/30/2021 2:38 PM CDT) athologist Signature NT-Pro BNP 227 <=540 pg/mL 11/30/2021 [facility] 3:08 PM CDT Comment: NT-proBNP values [...] M.D. LAB BLOOD ADD-ON Performing Organization Address [facility] Phon e Number [facility] - [address] [place], [place] [address] [place] [address] [facility] 200 [facility] Lipase (11/30/2021 2:38 PM CDT) P athologist Signature Lipase, S 32 13 - 60 U/L 11/30/2021 3:38 D[facility] PM CDT Specimen Anatomical Collection Method Collection Time Receive d Time (Source) Location / / Volume Laterality Blood (Blood, 11/30/2021 2:38 PM 12/01/19 3:09 Venous) CDT PM CDT Hamzah Hernández M.D. LAB BLOOD ADD-ON Performing Organization Address City/[facility] Phon e Number [facility] [address] [address] [facility] [place] [place] [address] Laboratories-[address] (ABNORMAL) Hepatic Function Panel (11/30/2021 2:38 [...] City/State/ZIP Code Phon e Number [facility] - [address] [place] [address] [facility] [place] [place] [address] [facility] 200 [facility] (ABNORMAL) CBC with Differential, Blood (11/30/2021 2:38 PM CDT) [facility] Method Time Signature Hemoglobin 13.1 (L) 13.2 [...] City/State/ZIP Code Phon e Number [facility] - 200 [place], [place] [address] [facility] [place] [address] [facility] 200 [facility] Basic Metabolic Panel (11/30/2021 2:38 PM CDT) [...] CDT eGFR-Black/Afri 71 >=60 11/30/2021 [facility] can [place] mL/min/BSA 3:02 PM CDT Comment: ----ADDITIONAL INFORMATION---- [...] City/State/ZIP Code Phon e Number [facility] - 200 [place], [place] [address] [facility] [place] [address] [facility] [address] ECG 12 Lead (11/30/2021 2:09 PM CDT) P athologist Signature Ventricular Rate 54 BPM MUSE ECG/Min RI Interval 178 ms MUSE QRSD Interval 84 ms MUSE QT Interval 444 ms MUSE QTC Interval 421 ms MUSE P Crescent 54 degrees MUSE R Crescent 2 degrees MUSE T Wave Crescent 30 degrees MUSE Specimen Anatomical Collection Method [...] documented as of this encounter Care Teams Remote Sensing Research Scientist Relationship Specialty Start Date End Date Silver Givens M.D. PCP - General Family Medicine 11/10/19 12/09/[address] [place] [phone] documented as of this encounter
--- OUTSIDE RECORDS SUMMARY | 2021-12-18 08:05 | XMS_ITS | Encounter Summary ---
:1940 Author Organization [facility] Address [address] [place] [address] Care Team Providers Name Role Phone Silver Givens M.D. Primary Care Provider Encounter Details Date Type Department Care Team Description 01/29/2021 Orders Only [facility] PCP [facility] MNT Sa lindy Kirkland M.D. [address] [place], [place] [phone] (Wo rk) Social History [...] documented as of this encounter Care Teams Abnormal Psychology Teacher Relationship Specialty Start Date End Date Silver Givens M.D. PCP - General Family Medicine 11/10/19 12/09/[address] [phone] documented as of this encounter
--- OUTSIDE RECORDS SUMMARY | 2021-12-18 08:05 | XMS_ITS | Encounter Summary ---
:1940 Author Organization [facility] Address [address] [place] [address] Care Team Providers Name Role Phone Silver Givens M.D. Primary Care Provider Reason for Referral Outpatient (Routine) - Closed Specialty Diagnoses / Procedures Referred By Contact Refer red To Contact Diagnoses Pain Chest Atherosclerotic Heart Disease Of [place] Coronary Artery Without Angina Pectoris Nic Mitchell P.A.-C., [facility] Procedures Echo Stress M.S. [address] [place] [address] Referral ID Status Reason Start Date Expiration Date Visits Requ ested Visits Authorized [id number] Closed 12/03/2021 12/03/2022 1 1 Reason for Visit Outpatient (Routine) - Closed Specialty Diagnoses / Procedures Referred By Contact Refer red To Contact Diagnoses Pain Chest Atherosclerotic Heart Disease Of [place] Coronary Artery Without Angina Pectoris Nic Mitchell P.A.-C., [facility] Procedures Echo Stress M.S. [address] [place] [address] Referral ID Status Reason Start Date Expiration Date Visits Requ ested Visits Authorized [id number] Closed 12/03/2021 12/03/2022 1 1 Encounter Details Date Type Department Care Team Description 12/05/2021 Hospital Department of [place], Pain Chest; Encounter Cardiovascular Nic RRyan ic Heart Disease Of [place] Coronary Artery Without Angina Pectoris Diseases in Laura Yung, M.S. [place] [address] [place] [phone] [phone] Social History Tobacco Use Types Packs/Day Years [...] AND Heart Disease Of the results CONTRAST [place] Coronary section. Artery Without Angina Pectoris documented in this encounter Results ECHO STRESS 2D WITH COLOR, LIMITED DOPPLER AND CONTRAST (12/05/2021 1:49 PM CDT) [facility] gist Method Time Signature Ejection [...] Echocardiography Contrast Administration P rotocol Reference Document [id number]. P atient met an inclusion criterion and [...] per Echocardiography Contrast Administration Protocol Reference Document [id number]. Patient met an inclusion criterion and did not have contraindications in screening sections. For the complete report, see the Order-L evel Documents. Nic Mitchell P.A.-C. M.S. CV ECHO PROCEDURES documented in this encounter Visit Diagnoses Diagnosis Pain Chest Atherosclerotic Heart Disease Of [place] Coronary Artery Without Angina Pectoris documented in [...] as of this encounter Care Teams Assistant Professor In Family Studies Relationship Specialty Start Date End Date Silver Givens M.D. PCP - General Family Medicine 11/10/19 12/09/[id number] [place] [phone] documented as of this encounter
--- OUTSIDE RECORDS SUMMARY | 2021-12-18 08:05 | XMS_ITS | Encounter Summary ---
:1940 Author Organization [facility] Address [address] [place] [address] Care Team Providers Name Role Phone Silver Givens M.D. Primary Care Provider Encounter Details Date Type Department Care Team Description 11/30/2021 [facility] Laila Loco Pain Chest (Primary AND CLINICS M, C.N.P. Dx) [address] [facility] [address] [place] [address] [phone] Social History Tobacco Use Types Packs/Day Years [...] as of this encounter Care Teams Manager Laboratory Relationship Specialty Start Date End Date Silver Givens M.D. PCP - General Family Medicine 11/10/19 12/09/[address] [place] [phone] documented as of this encounter
--- OUTSIDE RECORDS SUMMARY | 2021-12-18 08:05 | XMS_ITS | Encounter Summary ---
:1940 Author Organization [facility] Address [address] [place] [address] Care Team Providers Name Role Phone Silver Givens M.D. Primary Care Provider Reason for Visit Reason Comments Triage Encounter Details Date Type Department Care Team Description 12/03/2021 Clinical Communication Department of Police Matron, [facility] Cardiovascular Medicine Marisela Kwon in [facility] bhavna [address] [place] [address] Social History Tobacco Use Types Packs/Day [...] an Echo Stress and consult with a Police Matron per patient's ED visit. Pleasereview and advise [...] documented as of this encounter Care Teams Assembly Supervisor Relationship Specialty Start Date End Date Silver Givens M.D. PCP - General Family Medicine 11/10/19 12/09/[id number] [place] [phone] documented as of this encounter
--- OUTSIDE RECORDS SUMMARY | 2021-12-18 08:05 | XMS_ITS | Encounter Summary ---
:1940 Author Organization [facility] Address [address] [place] [address] Care Team Providers Name Role Phone Silver Givens M.D. Primary Care Provider Reason for Referral Outpatient (Routine) - Authorized Specialty Diagnoses / Procedures Referred By Contact Refer red To Contact Emergency Medicine Diagnoses Epistaxis Isidro Pham, MARIANNAS [facility] RETAIL SUPPORT SPECIALIST, C.N.P. [address] [place] [phone] Referral ID Status Reason Start Date Expiration Date Visits V isits Requested Authorized [id number] Authorized 08/15/2021 08/15/2022 1 1 Reason for Visit Reason Comments Fall Fall on Friday presents now with a nose bleed. Encounter Details Date Type Department Care Team Description 08/15/2021 Emergency [place], Trever Larios, P.A.-C. [address] [place] [address] Epistaxis (Primary Dx); Department Isidro Pham APRN, C.N.P. 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 If he continued to bleed after that please return to the ER. AttachmentsThe following attachments cannot be sent through Care Everywhere. Nosebleed Adult (Mongolian)documented in this encounter Medications at Time of [...] Neuroradiology ARZ LOS, N/A Computed Tomography Neuroradiology [facility] Specimen (Source) Anatomical Collection Method Collection Time [...] CDT eGFR-Black/Afr 67 >=60 08/15/2021 CNFL ican Ugandan mL/min/BSA 7:21 PM CDT Comment: ----ADDITIONAL INFORMATION---- Estimated GFR calculated using the 2009 CKD_EPI creatinine equation. eGFR Non-Black/ 58 (L) >=60 mL/min/BSA 08/15/2021 7:21 PM CDT CNFL [place]an Comment: ----ADDITIONAL INFORMATION---- Estimated GFR calculated using [...] P.A.-C. LAB BLOOD ADD-ON Performing Organization Address City/State/[facility] Code Phon e Number [facility]- [address] [place] [id number] [place] [address] [place] [address] Prothrombin Time (PT) (08/15/2021 6:05 PM [...] Organization Address City/State/ZIP Code Phon e Number [facility]- [address] [place] [address] [place] [address] [address] (ABNORMAL) CBC with Differential, Blood (08/15/2021 6:05 PM CDT) [facility] Method Time Signature Hemoglobin 13.4 13.2 [...] Organization Address City/State/ZIP Code Phon e Number [facility]- [address] [place] [address] [place] [address] [place] [address] [address] documented in this encounter Visit Diagnoses [...] as of this encounter Care Teams Safety Intern Relationship Specialty Start Date End Date Silver Givens M.D. PCP - General Family Medicine 11/10/19 12/09/[address] [place] [phone] documented as of this encounter
--- OUTSIDE RECORDS SUMMARY | 2021-12-18 08:05 | XMS_ITS | Encounter Summary ---
:1940 Author Organization [facility] Address [address] [place] [address] Care Team Providers Name Role Phone Silver Givens M.D. Primary Care Provider Reason for Visit Reason Comments Pain History [facility] Encounter Details Date Type Department Care Team Description 08/20/2021 Office Visit Department of Marv Dodson Pain Shou lder Left Orthopedic Surgery in M.D. (Primary Dx) [address] [phone] [phone] Social History Tobacco Use Types Packs/Day Years [...] documented as of this encounter Care Teams Block And Case Maker Relationship Specialty Start Date End Date Silver Givens M.D. PCP - General Family Medicine 11/10/19 12/09/[address] [phone] documented as of this encounter
--- OUTSIDE RECORDS SUMMARY | 2021-12-18 08:05 | XMS_ITS | Encounter Summary ---
:1940 Author Organization [facility] Address [address] [place] [address] Care Team Providers Name Role Phone Silver Givens M.D. Primary Care Provider Encounter Details Date Type Department Care Team Description 09/29/2020 Anesthesia Event Department of Vernon Santa APRN, JET WIPER [address] [place] [address] Gastroenterology in [facility] Christa Burt M.D. [address] [place] [address] [phone] Anesthesia Record Procedure Summary Procedure Name Responsible Anesthesiologist Anesthesia Start Ti me Anesthesia Stop Time COLONOSCOPY-P Yordy Santa APRN, 09/29/20 1025 [address] JET WIPER Events Date Time Event Comment 09/29/2020 1022 [...] 1418 by Left; bhavani, maribeling; Brandi Millard, [facility] inic-Backgroun 01/23/21 (Removed by Liu Presley background [...] Procedure Summary Date: 09/29/20 Room / Location: [address] [facility] - [place] Anesthesia Start: 1025 Anesthesia Stop: [...] [D50.0] Stool Positive Occult Blood [R19.5] Location: [facility] 1412 / [facility] [place] Providers: Wodo Car M.D. Pertinent components of the patient's history including current problem list, medical history, surgical history, family history, social history, medications and allergies were reviewed. Present illnessand pre-op diagnosis were confirmed. The planned surgery / procedure was verified with the patient /legal guardian. The patient's general health condition remains unchanged RELEVANT COMORBID CONDITIONS CV (+) Atherosclerotic Heart Disease Of [place] Coronary Artery Without Angina Pectoris (+) Peripheral [...] with patient /legal guardian or through an educational psychology professor. The use of blood products not discussed [...] documented as of this encounter Care Teams Filler Shredder Machine Relationship Specialty Start Date End Date Silver Givens M.D. PCP - General Family Medicine 11/10/19 12/09/[address] [place] [phone] documented as of this encounter
--- OUTSIDE RECORDS SUMMARY | 2021-12-18 08:05 | XMS_ITS | Encounter Summary ---
:[address] [facility] Address [address] [place] [address] Care Team Providers Name Role Phone Elsewhere, Pcp Primary Care Provider Unavailable Encounter Details Date Type Department Care Team Description 12/10/2021 Hospital Division of Angella Costello Abnormal Stress Test; Encounter Cardiovascular Giulia Starr. Atherosclerotic Heart Disease [place] 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) (HCC); Diseases in [place], [facility] [facility] Stress Test [facility] [address] [facility] [place] [facility] [address] [phone] Social History Tobacco Use Types Packs/Day Years [...] through Care Everywhere.Care Following Your Catheter Procedure (Chilean)documented in this encounter Medications at Time of [...] instructions were reviewed in detail as per BX5419-71 with patient and family. They verbalized understanding. [...] in Atherosclerotic the results Heart Disease section. [place] Coronary Artery With Other Forms Angina Pectoris (Stable Angina/Angina Of Exertion) ([facility]) ADULT OXYGEN THERAPY Routine 12/10/2021 10:08 AM CDT documented in this encounter Results CORONARY ANGIOGRAPHY (12/10/2021 10:59 AM CDT) Anatomical Region Laterality Modality X-Ray Angiography Specimen (Source) Anatomical Collection Method Collection Time Re ceived Time Location / / Volume Laterality 12/10/2021 10:20 AM CDT Narrative 12/10/2021 3:42 PM CDT For the complete report, see the [employer] Documents. PROCEDURE TYPES 1. ??CORONARY ANGIOGRAPHY FINAL DIAGNOSIS 1. ??Mild coronary artery atherosclerosi s PRE-PROCEDURE DIAGNOSIS 1. ??Abnormal Stress Test 2. 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) ([facility]) CORONARY DIAGNOSTIC SUMMARY Coronary artery dominance [...] Diagnosis Abnormal Stress Test Atherosclerotic Heart Disease False [place] 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) (HCC) Atherosclerotic Heart Disease Of [place] Coronary Artery Without Angina Pectoris Abnormal Stress Test Atherosclerotic Heart Disease [place] 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) (HCC) documented in this encounter Admitting Diagnoses Diagnosis Atherosclerotic Heart Disease Of [place] Coronary Artery Without Angina Pectoris Abnormal Stress [...] documented as of this encounter Care Teams Skein Winder Relationship Specialty Start Date End Date Elsewhere, Pcp PCP - General Internal Medicine 12/10/21 documented as of this encounter
--- OUTSIDE RECORDS SUMMARY | 2021-12-18 08:05 | XMS_ITS | Encounter Summary ---
:1940 Author Organization [facility] Address [address] [place] [address] Care Team Providers Name Role Phone Elsewhere, Pcp Primary Care Provider Unavailable Encounter Details Date Type Department Care Team Description 12/10/2021 Surgery Division of Cardiovascular Angella Costello oronary Angiography Diseases in Mat[place] Yung M .D. [place] [address] [facility] [address] [place] [address] [phone] Social History Tobacco Use Types Packs/Day Years [...] through Care Everywhere.Care Following Your Catheter Procedure (Cambodian)documented in this encounter Medications at Time of [...] instructions were reviewed in detail as per [id number] with patient and family. They verbalized understanding. [...] in Atherosclerotic the results Heart Disease section. [place] Coronary Artery With Other Forms Angina Pectoris (Stable Angina/Angina Of Exertion) ([facility]) ADULT OXYGEN THERAPY Routine 12/10/2021 10:08 AM [...] Forms Angina Pectoris (Stable Angina/Angina Of Exertion) ([facility]) CORONARY DIAGNOSTIC SUMMARY Coronary artery dominance is [...] Diagnosis Abnormal Stress Test Atherosclerotic Heart Disease [place] 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) (HCC) Atherosclerotic Heart Disease Of [place] Coronary Artery Without Angina Pectoris Abnormal Stress Test Atherosclerotic Heart Disease [place] 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) ([facility]) documented in this encounter Admitting Diagnoses Diagnosis Atherosclerotic Heart Disease Of [place] Coronary Artery Without Angina Pectoris Abnormal Stress [...] documented as of this encounter Care Teams Sausage Linker Relationship Specialty Start Date End Date Elsewhere, Pcp PCP - General Internal Medicine 12/10/21 documented as of this encounter
--- OUTSIDE RECORDS SUMMARY | 2021-12-18 08:05 | XMS_ITS | Encounter Summary ---
:1940 Author Organization [facility] Address [address] [place] [address] Care Team Providers Name Role Phone Silver Givens M.D. Primary Care Provider Reason for Visit Outpatient (Routine) - Closed Specialty Diagnoses / Procedures Referred By Contact Refer red To Contact Diagnoses Pain Shoulder Left Marv Dodson M.D. [facility] Region Procedures DX Shoulder Left 2+ Views DX Shoulder Right 2+ Views [address] [place] [phone] Referral ID Status Reason Start Date Expiration Date Visits Requ ested Visits Authorized [id number] Closed 08/20/2021 08/20/2022 1 1 Encounter Details Date Type Department Care Team Description 08/20/2021 Hospital Encounter Department of Marcus Dodson Fifi ulder Left Radiology in [place] [address] [place] [address] [phone] Social History Tobacco Use Types Packs/Day Years [...] as of this encounter Care Teams Senior Software Project Manager Relationship Specialty Start Date End Date Silver Givens M.D. PCP - General Family Medicine 11/10/19 12/09/[address] [place] [phone] documented as of this encounter
--- OUTSIDE RECORDS SUMMARY | 2021-12-18 08:06 | XMS_ITS | Encounter Summary ---
:1940 Author Organization [facility] Address [address] [place] [address] Care Team Providers Name Role Phone Silver Givens M.D. Primary Care Provider Reason for Referral Physical Therapy (Routine) - Closed Specialty Diagnoses / Procedures Referred By Contact Refer red To Contact Diagnoses Aftercare Total Shoulder Arthroplasty Laine Day P.A.-C. [facility] Procedures PT Evaluate and treat [address] [place] [address] Referral ID Status Reason Start Date Expiration Date Visits Requ ested Visits Authorized [id number] Closed 01/26/2020 01/25/2021 1 1 Outpatient (Routine) - Closed Specialty Diagnoses / Procedures Referred By Contact Refer red To Contact Orthopedic Surgery Laine Day P.A. -C. [facility] [address] [place] [phone] Referral ID Status Reason Start Date Expiration Date Visits Requ ested Visits Authorized [id number] Closed 01/26/2020 01/25/2021 1 1 Reason for Visit Auth/Cert Specialty Diagnoses / Procedures Referred By Contact Refer red To Contact Diagnoses Primary Osteoarthritis Shoulder Left Aftercare Total Shoulder Arthroplasty Primary Osteoarthritis Shoulder Left [M19.012] Procedures ARTHROPLASTY TOTAL REVERSE SHOULDER- Referral ID Status Reason Start Date Expiration Date Visits Requ ested Visits Authorized [id number] 1 1 Encounter Details Date Type Department Care Team Description 01/25/2020 - Hospital Encounter [facility], Aftercare Total 01/26/2020 [facility] [place] Giulia Fair. [facility], [address] [facility] Arthroplasty Third Floor [place], [place] (Primary Dx) [address] [facility] [address] [place], [place] [phone] [address] (Work) [phone] Social History Tobacco Use Types Packs/Day Years [...] SHOULDER- Marv Dodson M.D.Jensen, Jill C, P.A.-C. [facility] OR DISCHARGE DIAGNOSIS: right Reverse TSA [...] List Diagnosis ??? Atherosclerotic Heart Disease Of [place] Coronary Artery Without Angina Pectoris ??? Stroke [...] of this encounter Progress Notes Katalina George PFreedom. - 01/26/2020 10:14 AM CDT No PT [...] left total shoulder replacement on 01/25/[address] [place] [address] Dodson for left shoulder arthritis. [...] INTRAOCULAR LENS; Surgeon: Raymundo Muniz M.D.; Location: [facility] OR ??? EXTRACTION CATARACT WITH INSERTION INTRAOCULAR LENS Left 07/21/2017 Procedure: EXTRACTION CATARACT WITH INSERTION INTRAOCULAR LENS; Surgeon: Raymundo Muniz M.D.; Location: [facility] OR ??? MOHS SURGERY N/A 06/23/2006 [...] file Gets together: Not on file Attends adventist service: Not on file Active member of [...] Vitamin D #5 Atherosclerotic Heart Disease Of [place] Coronary Artery Without Angina Pectoris #6 Hyperlipidemia [...] List Diagnosis ??? Atherosclerotic Heart Disease Of [place] Coronary Artery Without Angina Pectoris ??? Stroke [...] REVERSE SHOULDER-; Surgeon: Marv Dodson M.D.; Location: [facility] OR ??? CARPAL TUNNEL RELEASE N/A [...] INTRAOCULAR LENS; Surgeon: Raymundo Muniz M.D.; Location: [facility] OR ??? EXTRACTION CATARACT WITH INSERTION INTRAOCULAR LENS Left 07/21/2017 Procedure: EXTRACTION CATARACT WITH INSERTION INTRAOCULAR LENS; Surgeon: Raymundo Muniz M.D.; Location: [facility] OR ??? MOHS SURGERY N/A 06/23/2006 >Mohs Micrographic Surgery With Layered Closure. ??? 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 Education with home [...] Time (min): 65 min Ana Villagomez O.T. [facility], Third Floor [address] [place] [address] Dept: [phone] Fortunato Davenport M.D. - 01/25/2020 6:33 PM [...] ST Elevation Myocardial Infarction Of Unspecified Site ([facility]) ??? Stroke ([facility]) PAST SURGICAL HISTORY Past Surgical [...] INTRAOCULAR LENS; Surgeon: Raymundo Muniz M.D.; Location: [facility] OR ??? EXTRACTION CATARACT WITH INSERTION INTRAOCULAR LENS Left 07/21/2017 Procedure: EXTRACTION CATARACT WITH INSERTION INTRAOCULAR LENS; Surgeon: Raymundo Muniz M.D.; Location: [facility] OR ??? 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 Moved in to the town of [place] with his . Quit smoking 15 years [...] List Diagnosis ??? Atherosclerotic Heart Disease Of [place] Coronary Artery Without Angina Pectoris ??? Stroke [...] total shoulder arthroplasty. SURGEON(S) Marv Dodson MD. GOLD ASSAYER: Laine Day PA-C. I requested Laine to [...] Marv Dodson M.D. CT CT Job ID: [id number] Brief Op Note - Marv Dodson M.D. - 01/25/2020 1:57 PM CDT BRIEF OP NOTE Procedure(s) (LRB): ARTHROPLASTY TOTAL REVERSE SHOULDER- (Left) Surgeon(s) and Role: * Marv Dodson M.D. - Primary * Laine Day P.A.-C. - Chief Accounting Officer Anesthesia Type General with pain block Pre-operative Diagnosis Primary Osteoarthritis Shoulder Left Post-operative Diagnosis Primary Osteoarthritis Shoulder Left Findings As expected. Complications None Specimens None Drains None Estimated Blood Loss 60 mL Implants Implant Name Type Inv. Item Serial No. Pediatric Urologist Lot No. LRB No. Used Action anatomic reverse shoulder screw syssh Shoulder Implant NA [employer] [id number] Left 1 Implanted BSPLT GLND TRB 15 - SNA - [id number] Shoulder Implant BSPLT GLND TRB 15 NA [employer] [id number] [address] FTHRD LCK 4.5X36 - SNA - [id number] Shoulder Implant SCRW PRT ST FTHRD LCK 4.5X36 NA [employer] [id number] Left 1 Implanted COMP GLND TRB 36 - SNA - [id number] Shoulder Implant COMP GLND TRB 36 NA [employer] [id number] Left 1 Implanted humeral stem Shoulder Implant NA [employer] [id number] Left 1 Implanted SHLDR LNR TRB RVRS +0X36 - SNA - [id number] Shoulder Implant SHLDR LNR TRB RVRS +0X36 NA [employer] [id number] Left 1 Implanted Marv Dodson M.D. documented [...] Organization Address City/State/ZIP Code Phon e Number [facility]- [address] [place], [place] [address] [place] [address] System in [place] Xander Mirza documented in this encounter Visit Diagnoses Diagnosis Primary Osteoarthritis Shoulder Left - P rimary Aftercare Total Shoulder Arthroplasty Atherosclerotic Heart Disease Of [place] Coronary Artery Without Angina Pectoris Stroke Cerebrovascular [...] 134 (Given - Provider: Neptali Boyce APRN, CYBER SECURITY ARCHITECT, R.N.) 2 g (rounded from 1.74 g [...] Ba g - Provider: Marv Simmons APRN, CYBER SECURITY ARCHITECT)1306 (Anesthesia Volume Adjustment - Provider: Neptali Boyce [...] mg of calcium, oral, Every 2 hour DC N, indigestion, Starting Fri01/25/20 at 1632, Doses [...] documented as of this encounter Care Teams Plastic Printer Relationship Specialty Start Date End Date Silver Givens M.D. PCP - General Family Medicine 11/10/19 12/09/[address] [place] [phone] documented as of this encounter
--- OUTSIDE RECORDS SUMMARY | 2021-12-18 08:06 | XMS_ITS | Encounter Summary ---
:1940 Author Organization [facility] Address [address] [place] [address] Care Team Providers Name Role Phone Silver Givens M.D. 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] Procedures ARTHROPLASTY TOTAL REVERSE SHOULDER- Referral ID Status Reason Start Date Expiration Date Visits Requ ested Visits Authorized [id number] 1 1 Encounter Details Date Type Department Care Team Description 01/25/2020 Surgery [facility] MAIN OR Marv Dodson, ARTHROPLASTY TOTAL [address] M.D. REVERSE SHOULDER- YARIEL CUMMINS [phone] [address] [phone] [place] [phone] (Wo rk) Social History Tobacco Use Types [...] SHOULDER- Marv Dodson M.D.Jensen, Jill C, P.A.-C. [facility] OR DISCHARGE DIAGNOSIS: right Reverse TSA [...] List Diagnosis ??? Atherosclerotic Heart Disease Of [place] Coronary Artery Without Angina Pectoris ??? Stroke [...] succinate Take 0.5 tablets 15 tablet 0 04/14/201 9 (TOPROL-XL) 25 mg 24 hr (12.5 [...] left total shoulder replacement on 01/25/[address] [place] [address] Dodson for left shoulder arthritis. [...] INTRAOCULAR LENS; Surgeon: Raymundo Muniz M.D.; Location: [facility] OR ??? EXTRACTION CATARACT WITH INSERTION INTRAOCULAR LENS Left 07/21/2017 Procedure: EXTRACTION CATARACT WITH INSERTION INTRAOCULAR LENS; Surgeon: Raymundo Muniz M.D.; Location: [facility] OR ??? 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 Atherosclerotic Heart Disease Of [place] Coronary Artery Without Angina Pectoris ??? Stroke [...] INTRAOCULAR LENS; Surgeon: Raymundo Muniz M.D.; Location: [facility] OR ??? EXTRACTION CATARACT WITH INSERTION INTRAOCULAR LENS Left 07/21/2017 Procedure: EXTRACTION CATARACT WITH INSERTION INTRAOCULAR LENS; Surgeon: Raymundo Muniz M.D.; Location: [facility] OR ??? MOHS SURGERY N/A 06/23/2006 >Mohs Micrographic Surgery With Layered Closure. ??? 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 Education with home [...] Time (min): 65 min Ana Villagomez O.T. [facility], Third Floor [address] [facility] [address] Dept: [phone] Fortunato Davenport M.D. - 01/25/2020 6:33 PM [...] Myocardial Infarction (HCC) 08/15/2018 ??? 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 Post Operative Nausea/Vomiting ??? ST Elevation Myocardial Infarction Of Unspecified Site ([facility]) ??? Stroke ([facility]) PAST SURGICAL HISTORY Past Surgical History: Procedure [...] INTRAOCULAR LENS; Surgeon: Raymundo Muniz M.D.; Location: [facility] OR ??? EXTRACTION CATARACT WITH INSERTION INTRAOCULAR LENS Left 07/21/2017 Procedure: EXTRACTION CATARACT WITH INSERTION INTRAOCULAR LENS; Surgeon: Raymundo Muniz M.D.; Location: [facility] OR ??? 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 Moved in to the town of [facility] with his . Quit smoking 15 years [...] List Diagnosis ??? Atherosclerotic Heart Disease Of [place] Coronary Artery Without Angina Pectoris ??? Stroke [...] shoulder arthroplasty. SURGEON(S) Marv Dodson MD. STORE GIFT WRAP ASSOCIATE: Laine Day PA-C. I requested Laine to [...] and he desired to proceed. TPR: [address] Job ID: [id number] Brief Op Note - Marv Dodson M.D. - 01/25/2020 1:57 PM CDT BRIEF OP NOTE Procedure(s) (LRB): ARTHROPLASTY TOTAL REVERSE SHOULDER- (Left) Surgeon(s) and Role: * Marv Dodson M.D. - Primary * Laine Day P.A.-C. - Branch Customer Service Representative Anesthesia Type General with pain block Pre-operative Diagnosis Primary Osteoarthritis Shoulder Left Post-operative Diagnosis Primary Osteoarthritis Shoulder Left Findings As expected. Complications None Specimens None Drains None Estimated Blood Loss 60 mL Implants Implant Name Type Inv. Item Serial No. Thread Clipper Lot No. LRB No. Used Action anatomic reverse shoulder screw syssh Shoulder Implant NA LisaiMall.euet [id number] Left 1 Implanted BSPLT GLND TRB 15 - SNA - [id number] Shoulder Implant BSPLT GLND TRB 15 NA [employer] [id number] [address] FTHRD LCK 4.5X36 - SNA - [id number] Shoulder Implant SCRW PRT ST FTHRD LCK 4.5X36 NA [employer] [id number] Left 1 Implanted COMP GLND TRB 36 - SNA - [id number] Shoulder Implant COMP GLND TRB 36 NA [employer] [id number] Left 1 Implanted humeral stem Shoulder Implant NA [employer] [id number] Left 1 Implanted SHLDR LNR TRB RVRS +0X36 - SNA - [id number] Shoulder Implant SHLDR LNR TRB RVRS +0X36 NA [employer] [id number] Left 1 Implanted Marv Dodson M.D. documented [...] Address City/State/ZIP Code Phon e Number [facility]- [place], [place] [address] [address] [facility] [place] [address] System in [place] [address] documented in this encounter Visit [...] Ba g - Provider: Marv Simmons APRN, HOME TEACHING GRADES 7 AND 8 TEACHER)[phone] (Anesthesia Volume Adjustment - Provider: Neptali Boyce [...] mg of calcium, oral, Every 2 hour MS N, indigestion, Starting Fri01/25/20 at 1632, Doses [...] documented as of this encounter Care Teams Binder Stripper Hand Relationship Specialty Start Date End Date Silver Givens M.D. PCP - General Family Medicine 11/10/19 12/09/[address] [place] [phone] documented as of this encounter
--- OUTSIDE RECORDS SUMMARY | 2021-12-18 08:06 | XMS_ITS | Encounter Summary ---
:1940 Author Organization [facility] Address [address] [place] [address] Care Team Providers Name Role Phone Silver Givens M.D. Primary Care Provider Reason for Visit Reason Comments Communication 3 day endoscopy call, covid Encounter Details Date Type Department Care Team Description 09/26/2020 Clinical Department of Carmen Mcdonald (3 day Communication General Surgery in [facility] endoscopy call, [address]) [address] [phone] Social History Tobacco Use Types Packs/Day [...] lying flat? No Do you have an methodist or other objection to having a blood transfusion? No Medication Review: Anticoagulation: Yes Diabetic: No Prescription pain medication: No Did you get instructions for what medications to hold? Yes Reviewed booklet with patient including prep, procedural expectations, NPO instructions, arrival time and that they need a class a regional drivers: Yes Time patient needs to arrive for procedure: (9:40 AM) Patient verbalizes arrival time and instructions for procedure: Yes If patient is concerned he is not empting pre-procedural, please call the listed number, based on location, the morning of. [phone] [facility] [phone] [facility] [phone] [facility] COVID Screening Questions Does [...] documented as of this encounter Care Teams Fitter Placer Relationship Specialty Start Date End Date Silver Givens M.D. PCP - General Family Medicine 11/10/19 12/09/[address] [place] [address] [phone] documented as of this encounter
--- OUTSIDE RECORDS SUMMARY | 2021-12-18 08:06 | XMS_ITS | Encounter Summary ---
:1940 Author Organization [facility] Address [address] [place] [address] Care Team Providers Name Role Phone Silver Givens M.D. Primary Care Provider Reason for Visit Physical Therapy (Routine) - Canceled Specialty Diagnoses / Procedures Referred By Contact Refer red To Contact Diagnoses Aftercare Total Shoulder Arthroplasty Laine Day, P.A.-C. [facility] Procedures PT Ongoing treatment [address] [facility] [place] [phone] Referral ID Status Reason Start Date Expiration Date Visits V isits Requested Authorized [id number] Canceled 02/07/2020 02/06/2021 99 99 Encounter Details Date Type Department Care Team Description 04/19/2020 Clinical Support Department of Laine Day, P.A.-C. [address] [facility] [place] [phone] Aftercare Total Rehabilitation Arti Lundberg P.TLara [address] [place] [phone] Shoulder Services in [address] [address] Social History Tobacco Use Types Packs/Day Years [...] Lundberg P.T. Department of Rehabilitation Services in [address] [address] Dept: [phone] UT SEPARATOR documented in this encounter Plan of Treatment Not on filedocumented as of this encounter Visit Diagnoses Diagnosis Aftercare Total Shoulder Arthroplasty documented in this encounter Additional Health Concerns Assessment Noted Time PHQ-9 Depression Total Score: 2 03/08/2015 11:16 AM CS T documented as of this encounter Care Teams Bicycle Mechanic Relationship Specialty Start Date End Date Silver Givens M.D. PCP - General Family Medicine 11/10/19 12/09/[address] [place] [phone] documented as of this encounter
--- OUTSIDE RECORDS SUMMARY | 2021-12-18 08:06 | XMS_ITS | Encounter Summary ---
:1940 Author Organization [facility] Address [address] [place] [address] Care Team Providers Name Role Phone Silver Givens M.D. Primary Care Provider Encounter Details Date Type Department Care Team Description 09/25/2020 Lab Department of Family Deppe, Hailey Mehta Iron Deficiency Medicine, Professional and M.D. Blood Loss Chronic [facility] in [address] [address] [place] [address] [phone] Social History Tobacco Use Types Packs/Day Years [...] RNA, V Asymptomatic (09/25/2020 8:31 AM CDT) [facility] Method Time Signature SARS-CoV-2 Swab, 09/25/2020 ECLR [...] pe rformed using the Aptima SARS-CoV-2 assay ([employer] on the [employer] tem under emergency use authorization (EUA) by the U.S. Food and Drug Administ ration. Fact sheets for this EUA assay can be fo und at the following links: For Healthcare Providers: https://www.[employer] a.gov/media/923049/download For Patients: https://www.fda.gov/media/ 034054/download Specimen Anatomical Collection Method Collection Time Receive d Time (Source) Location / / Volume Laterality Varies 09/25/2020 8:31 AM 2:56 (Nasopharynx) CDT PM CDT Wood Car M.D. LAB MICROBIOLOGY - GENERAL O RDMARAHBLES Performing Organization Address City/State/ZIP Code Phon e Number [facility] [address] [place] [address] [phone] [facility] [place] [address] System in [address] documented in this encounter Visit Diagnoses Diagnosis Anemia Iron Deficiency Blood Loss Chroni c documented in this encounter Additional Health Concerns Infection Onset Date Last Indicated Resolved Time COVID19 Pending 09/25/2020 09/25/2020 09/25/2020 8:20 PM CDT Assessment Noted Time PHQ-9 Depression Total Score: 2 03/08/2015 11:16 AM CS T documented as of this encounter Care Teams International Logistics Analyst Relationship Specialty Start Date End Date Silver Givens M.D. PCP - General Family Medicine 11/10/19 12/09/[address] [place] [phone] documented as of this encounter
--- OUTSIDE RECORDS SUMMARY | 2021-12-18 08:06 | XMS_ITS | Encounter Summary ---
:1940 Author Organization [facility] Address [address] [place] [address] Care Team Providers Name Role Phone Silver Givens M.D. Primary Care Provider Reason for Visit Reason Comments Med Refill Encounter Details Date Type Department Care Team Description 03/07/2020 Refill Department of Family Medicine, Silver Ramírez M.D. Med Refill [facility], in [place] [address] [address] [place], [place] [address] [phone] Social History Tobacco Use Types Packs/Day Years [...] mg by mouth daily. [facility] Patient is out of medication RUCTIONAL SUPERVISOR documented in this encounter Plan of Treatment Not on filedocumented as of this encounter Visit Diagnoses Not on filedocumented in this encounter Additional Health Concerns Assessment Noted Time PHQ-9 Depression Total Score: 2 03/08/2015 11:16 AM CS T documented as of this encounter Care Teams Clock And Watch Hands Mounter Relationship Specialty Start Date End Date Silver Givens M.D. PCP - General Family Medicine 11/10/19 12/09/[address] [place] [phone] documented as of this encounter
--- OUTSIDE RECORDS SUMMARY | 2021-12-18 08:06 | XMS_ITS | Encounter Summary ---
:1940 Author Organization [facility] Address [address] [place] [address] Care Team Providers Name Role Phone Silver Givens M.D. Primary Care Provider Encounter Details Date Type Department Care Team Description 03/08/2020 Hospital Encounter Department of Laine Day Follo w Up Examination Radiology in [place] P.A.-C. Postoperative Visit [address] [phone] Social History Tobacco Use Types Packs/Day Years [...] for this 2+ VIEWS (most inpatients AM PANAMA HAT HYDRAULIC PRESS OPERATOR Examination procedure a re in and all Postoperative Visit the resu lts outpatients) section. documented in this encounter Results DX Shoulder Left 2+ Views (03/08/2020 9:49 AM PANAMA HAT HYDRAULIC PRESS OPERATOR) Anatomical Region Laterality Modality Upper Extremity, Shoulder, Musculoskeletal RST LOS, Left Digital Radiography Musculoskeletal ARZ LOS, Muskuloskeletal FLA LOS Specimen (Source) Anatomical Collection Method Collection Time Re ceived Time Location / / Volume Laterality 03/08/2020 9:51 AM PANAMA HAT HYDRAULIC PRESS OPERATOR Impressions 03/08/2020 9:54 AM PANAMA HAT HYDRAULIC PRESS OPERATOR Left total reverse shoulder arthroplasty hardware components appear well seated and intact. No dislocation. Negative for acute fracture. Aortic calcifications. Thoracic spondylosis. Co mparison December 15, 2019. Narrative 03/08/2020 9:54 AM PANAMA HAT HYDRAULIC PRESS OPERATOR EXAM: DX SHOULDER LEFT 2+ VIEWS Procedure [...] documented as of this encounter Care Teams Packer Inspector Relationship Specialty Start Date End Date Silver Givens M.D. PCP - General Family Medicine 11/10/19 12/09/[address] [place] [phone] documented as of this encounter
--- OUTSIDE RECORDS SUMMARY | 2021-12-18 08:06 | XMS_ITS | Encounter Summary ---
:1940 Author Organization [facility] Address [address] [place] [address] Care Team Providers Name Role Phone Silver Givens M.D. 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] Procedures ARTHROPLASTY TOTAL REVERSE SHOULDER- Referral ID Status Reason Start Date Expiration Date Visits Requ ested Visits Authorized [id number] 1 1 Encounter Details Date Type Department Care Team Description 01/22/2020 Hospital Encounter Department of [place], Primary Osteoarthritis Laboratory Medicine Giulia Fair Shoulder Left in [place], [address] [place], [place] [address] [facility] [address] [place], [place] [phone] (Work) [phone] Social History Tobacco Use Types Packs/Day Years [...] RNA, V Asymptomatic (01/22/2020 9:29 AM CDT) [facility] Method Time Signature SARS-CoV-2 Swab, 01/22/2020 ECLR [...] is performed using the Aptima SARS-CoV-2 assay ([employer] which has received Emergency Use Authori zation (EUA) by the U.S. Food and Drug Administration. Fact sheets for this Emergency Use Autho rization (EUA) assay can be found at the following links: For Healthcare Providers: https://www.[employer] a.gov/media/884369/download For Patients: https://www.fda.gov/media/ 976307/download Specimen Anatomical Collection Method Collection Time Receive d Time (Source) Location / / Volume Laterality Varies 01/22/2020 9:29 AM 0 3:53 (Nasopharynx) CDT PM CDT Marv Dodson M.D. LAB MICROBIOLOGY - GENERAL O KIMI Performing Organization Address City/State/[facility] Phon e Number [facility]- [address] [place] [phone] [facility] [place] [address] System in [address] documented in this encounter Visit Diagnoses Diagnosis Primary Osteoarthritis Shoulder Left documented in this encounter Additional Health Concerns Infection Onset Date Last Indicated Resolved Time COVID19 Pending 01/22/2020 01/22/2020 01/22/2020 11:33 PM CDT Assessment Noted Time PHQ-9 Depression Total Score: 2 03/08/2015 11:16 AM CS T documented as of this encounter Care Teams Cd Reactor Operator Head Relationship Specialty Start Date End Date Silver Givens M.D. PCP - General Family Medicine 11/10/19 12/09/[address] [place] [phone] documented as of this encounter
--- OUTSIDE RECORDS SUMMARY | 2021-12-18 08:06 | XMS_ITS | Encounter Summary ---
:1940 Author Organization [facility] Address [address] [place] [address] Care Team Providers Name Role Phone Silver Givens M.D. Primary Care Provider Reason for Visit Outpatient (Routine) - Closed Specialty Diagnoses / Procedures Referred By Contact Refer red To Contact General Surgery Diagnoses Primary Osteoarthritis Shoulder Left Marv Dodson [facility] [address] [place] [address] Referral ID Status Reason Start Date Expiration Date Visits Requ ested Visits Authorized [id number] Closed 12/15/2019 12/14/2020 1 1 Encounter Details Date Type Department Care Team Description 01/18/2020 Telemedicine Department of General Rodger Dodson M.D. [address] [place] [phone] Preanesthetic Medical Exam (Primary Dx); Surgery in [place]udelka Lu Abby P, R.NLara [address] [place] [address] Primary Osteoarthritis Shoulder Left [place] [address] [place] [phone] Social History Tobacco Use Types [...] 01/18/20 regarding surgery on 01/25/20. Surgery Nurse Audio Engineer Skin Alert Assessment: Complete this section only [...] flat? No Comment: Do you have any buddhist or other objection to having a blood transfusion? No Teaching: Preoperative education was done with (x) patient and his spouse () parent . It was confirmed the patient/family member had received the following preoperative education sheets:Checklist For Surgical Patients (NR8674- [id number]),???Surgical Site Infections: Reducing Your Risk ([id number]), Speak Up: Antibiotics ([id number]), Acute Pain and the Healing Process ([id number]) with the Integrative Medicine and Health ([id number]), and ???Appointments Required Before Your Surgery?? (no MC). These were reviewed in detail. (x) Preoperative medication education provided through Ask Ringold Expert (x) Preoperative COVID-19 testing ordered and discussed with patient (x)Preop OT appt (total shoulders only). Patient filled out TOTAL JOINT ARTHROPLASTY DISCHARGE PLANNING FORM (agH: Forms 08/30/2013 / CF-108). (x picking up at [employer] front desk clerk) Gave patient Hibiclens packet and reviewed Reducing Your Risk of Surgical Infection ([id number]). Additional Pamphlets also reviewed: (x) Shoulder Replacement Surgery: Reverse Prosthesis ([id number]) and reviewed teaching points for total shoulders instructions. Patient is ready to learn, no apparent learning barriers were identified. Reviewed diagnosis and treatment plan; patient verbalized understanding through teach back. All questions were answered. Patient has contact information and understands the need to call with any questions or concerns. Post op appointments: 1st po with surgeon or physician specimen preparation assistant: (x) made ()TBD documented in this encounter Plan of Treatment Not on filedocumented as of this encounter Visit Diagnoses Diagnosis Preanesthetic Medical Exam - Primary Primary Osteoarthritis Shoulder Left documented in this encounter Additional Health Concerns Assessment Noted Time PHQ-9 Depression Total Score: 2 03/08/2015 11:16 AM CS T documented as of this encounter Care Teams Carton Waxing Machine Operator Relationship Specialty Start Date End Date Silver Givens M.D. PCP - General Family Medicine 11/10/19 12/09/[address] [place] [phone] documented as of this encounter
--- OUTSIDE RECORDS SUMMARY | 2021-12-18 08:06 | XMS_ITS | Encounter Summary ---
:1940 Author Organization [facility] Address [address] [place] [address] Care Team Providers Name Role Phone Silver Givens M.D. 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 [address] [place] [address] Vicky1 Christa Ball M.D. [address] [phone] YAR[place] CUMMINS [phone] Anesthesia Record Procedure Summary Procedure Name [...] h andoff to the receiving staff during [facility] we 1. Identified the patient 2. Ident [...] Butler, Yoo jung, Time: 1327 (created via BLOCK SAW OPERATOR, LEAD ENTERPRISE ARCHITECT, DNAP BLOCK SAW OPERATOR, C RNA, DNAP procedure documentation); Mask Ventilation: Not attempted; Removal Date: 01/25/20; Removal Time: 1517 (RETIRED) Incision 01/25/20; 1403; 01/25/20 1403 by 01/23/21 141 8 by Shoulder; Left; Freeman beckham Tammara L, [facility]-Backgroun sling; 01/23/21 (Removed R.N. d, Sche [...] Procedure Summary Date: 01/25/20 Room / Location: [address] 1407 / [facility] - Anesthesia Start: 1309 Anesthesia Stop: 1524 [...] Osteoarthritis Shoulder Left [M19.012] Location: OR 04 [facility] 4836 / [facility] - GI Surgeon: Marv Dodson M.D. Pertinent [...] Problems CV (+) Atherosclerotic Heart Disease Of [place] Coronary Artery Without Angina Pectoris (+) Peripheral Vascular Disease (HCC) GI (+) Gastroesophageal Reflux Disease Without Esophagitis Other (+) Primary Osteoarthritis Shoulder Left (+) Stroke Cerebrovascular Accident Personal History Hx NSTEMI 08/2018-s/p SHAHAB to LAD-plavix/ASA Labs reviewed EKG- NSR, PVCs, Right BBB S/p Left CEA in past S/p reverse TSA [id number] plus block Hx of memory issues after [...] with patient /legal guardian or through an historic interpreter. Risks/Benefits/Alternatives of Blood transfusion discussed with patient [...] procedure ar e in the results section. [facility] US GUIDE PLC NDL Routine 01/25/2020 11:33 AM R esults for this CDT procedure are i n the results section. NH INJ ANES BRACHIAL Routine 01/25/2020 11:33 AM [...] no complications Anali Dodson M.D. ANESTHESIA ORDERABLES NH INJ ANES BRACHIAL PLEX, [facility] US GUIDE [facility] NDL, ANE NERVE BLOCK WITH ULTRASOUND (01/25/2020 [...] as of this encounter Care Teams Supervisor Cigar Making Hand Relationship Specialty Start Date End Date Silver Givens M.D. PCP - General Family Medicine 11/10/19 12/09/[id number] [place] [phone] documented as of this encounter
--- OUTSIDE RECORDS SUMMARY | 2021-12-18 08:06 | XMS_ITS | Encounter Summary ---
:1940 Author Organization [facility] Address [address] [place] [address] Care Team Providers Name Role Phone Silver Givens M.D. Primary Care Provider Reason for Visit Physical Therapy (Routine) - Canceled Specialty Diagnoses / Procedures Referred By Contact Refer red To Contact Diagnoses Aftercare Total Shoulder Arthroplasty Laine Day, P.A.-C. [facility] Procedures PT Ongoing treatment 701 [facility] [place] [phone] Referral ID Status Reason Start Date Expiration Date Visits V isits Requested Authorized [id number] Canceled 02/07/2020 02/06/2021 99 99 Encounter Details Date Type Department Care Team Description 02/28/2020 Clinical Support Department of Laine Day, P.A.-C. [address] [facility] [place] [phone] Aftercare Total Rehabilitation Arti Lundberg P.TLara [address] [place] [phone] Shoulder Services in [address] [phone] Social History Tobacco Use Types Packs/Day Years [...] Lundberg P.T. Department of Rehabilitation Services in [address] [address] Dept: [phone] documented in this encounter Plan of Treatment Not on filedocumented as of this encounter Visit Diagnoses Diagnosis Aftercare Total Shoulder Arthroplasty documented in this encounter Additional Health Concerns Assessment Noted Time PHQ-9 Depression Total Score: 2 03/08/2015 11:16 AM CS T documented as of this encounter Care Teams Dialysis Clinical Manager Relationship Specialty Start Date End Date Silver Givens M.D. PCP - General Family Medicine 11/10/19 12/09/[address] [place] [phone] documented as of this encounter
--- OUTSIDE RECORDS SUMMARY | 2021-12-18 08:06 | XMS_ITS | Encounter Summary ---
:1940 Author Organization [facility] Address [address] [place] [address] Care Team Providers Name Role Phone Silver Givens M.D. Primary Care Provider Reason for Visit Physical Therapy (Routine) - Closed Specialty Diagnoses / Procedures Referred By Contact Refer red To Contact Diagnoses Aftercare Total Shoulder Arthroplasty Laine Day, P.A.-C. [facility] Procedures PT Evaluate and treat 701 [facility] [place] [phone] Referral ID Status Reason Start Date Expiration Date Visits Requ ested Visits Authorized [id number] Closed 01/26/2020 01/25/2021 1 1 Encounter Details Date Type Department Care Team Description 02/07/2020 Comprehensive Visit Department of Laine Day, P.A.-C. 701 [facility] [place] [phone] Aftercare Total Rehabilitation Arti Lundberg P.TLara [address] [place] [phone] Shoulder Services in [address] [phone] Social History Tobacco Use Types Packs/Day Years [...] AND B / Product Type: Medicare / Appsembler Visit Count: 1 PERTINENT MEDICAL / SURGICAL HISTORY: Patient Active Problem List Diagnosis ??? Atherosclerotic Heart Disease Of [place] Coronary Artery Without Angina Pectoris ??? Stroke [...] REVERSE SHOULDER-; Surgeon: Marv Dodson M.D.; Location: [facility] OR ??? CARPAL TUNNEL RELEASE N/A [...] INTRAOCULAR LENS; Surgeon: Raymundo Muniz M.D.; Location: [facility] OR ??? EXTRACTION CATARACT WITH INSERTION INTRAOCULAR LENS Left 07/21/2017 Procedure: EXTRACTION CATARACT WITH INSERTION INTRAOCULAR LENS; Surgeon: Raymundo Muniz M.D.; Location: [facility] OR ??? MOHS SURGERY N/A [...] Lundberg P.T. Department of Rehabilitation Services in [address] [address] Dept: [phone] documented in this encounter Plan of Treatment Not on filedocumented as of this encounter Visit Diagnoses Diagnosis Aftercare Total Shoulder Arthroplasty documented in this encounter Additional Health Concerns Assessment Noted Time PHQ-9 Depression Total Score: 2 03/08/2015 11:16 AM CS T documented as of this encounter Care Teams Caterers Helper Relationship Specialty Start Date End Date Silver Givens M.D. PCP - General Family Medicine 11/10/19 12/09/[address] [phone] documented as of this encounter
--- OUTSIDE RECORDS SUMMARY | 2021-12-18 08:06 | XMS_ITS | Encounter Summary ---
:1940 Author Organization [facility] Address [address] [place] [address] Care Team Providers Name Role Phone Silver Givens M.D. Primary Care Provider Reason for Visit Reason Comments Pre-op Exam 01/25/20- L total Shoulder wi th Dr. Marv Dodson in Outpatient (Routine) - Closed Specialty Diagnoses / Procedures Referred By Contact Refer red To Contact Family Medicine Diagnoses Primary Osteoarthritis Shoulder Left Marv Dodson [facility] Marisela [address] [place] [address] [place] [address] Referral ID Status Reason Start Date Expiration Date Visits Requ ested Visits Authorized [id number] Closed 12/15/2019 12/14/2020 1 1 Encounter Details Date Type Department Care Team Description 01/18/2020 Office Visit Department of Silver Montelongo Preop erative Exam (Primary Dx); Rosalia Kiser M.D. Primary Osteoarthritis Shoulder Left; [facility], in [address] [place] [address] Osteopor osis Without Pathological Fracture; [place], Blvd Deficiency Vitamin D; [facility] [place] Atherosclerotic Heart Diseas e Of [place] Coronary Artery Without Angina Pectoris; [address] [place] [address] [address]VD [phone] Hyperlipidemia; [place] [phone] Peripheral Vascular Disease (HCC); [phone] (Work) Stroke Cerebrovascular Accident Personal History; [phone] Hyperglycemia; (Fax) Gastroesophagea l Reflux Disease Without [...] left total shoulder replacement on 01/25/[address] [place] [address] Dodson for left shoulder arthritis. [...] Infarction Of Unspecified Site (HCC) ??? Stroke ([facility]) Past Surgical History: Procedure Laterality Date [...] INTRAOCULAR LENS; Surgeon: Raymundo Muniz M.D.; Location: [facility] OR ??? EXTRACTION CATARACT WITH INSERTION INTRAOCULAR LENS Left 07/21/2017 Procedure: EXTRACTION CATARACT WITH INSERTION INTRAOCULAR LENS; Surgeon: Raymundo Muniz M.D.; Location: [facility] OR ??? MOHS SURGERY N/A [...] file Gets together: Not on file Attends episcopal service: Not on file Active member of [...] Vitamin D #5 Atherosclerotic Heart Disease Of [place] Coronary Artery Without Angina Pectoris #6 Hyperlipidemia [...] sults for this PM CDT Disease Of [place] procedure are in Coronary Artery Without the results Angina Pectoris section. CBC WITH Routine 01/18/2020 11:28 Atherosclerotic Heart Re sults for this DIFFERENTIAL, B AM CDT Disease Of [place] procedu re are in Coronary Artery Without the results Angina Pectoris section. BASIC METABOLIC Routine 01/18/2020 11:28 Atherosclerotic Heart Results for this PANEL, S/P AM CDT Disease Of [place] procedure are in Coronary Artery Without the results Angina Pectoris section. documented in this encounter Results ECG 12 Lead (01/18/2020 12:07 PM CDT) P athologist Signature Ventricular Rate 63 BPM MUSE ECG/Min SD Interval 182 ms MUSE QRSD Interval 86 ms MUSE QT Interval 428 ms MUSE QTC Interval 437 ms MUSE P Vado 51 degrees MUSE R Vado 1 degrees MUSE T Wave Vado 32 degrees MUSE Specimen Anatomical Collection Method [...] CDT eGFR-Black/Afri 72 >=60 01/18/2020 CNFL can Cameroonian mL/min/BSA 11:49 AM CDT Comment: ----ADDITIONAL INFORMATION---- [...] M.D. LAB BLOOD ADD-ON Performing Organization Address City/State/[facility] Code Phon e Number [address] [address] [place] [address] System [address] CBC with Differential, Blood (01/18/2020 11:28 [...] Organization Address City/State/ZIP Code Phon e Number [address] [address] [place] [address] System in [address] documented in this encounter Visit Diagnoses Diagnosis Preoperative Exam - Primary Primary Osteoarthritis Shoulder Left Osteoporosis Without Pathological Fractu re Deficiency Vitamin D Atherosclerotic Heart Disease Of [place] Coronary Artery Without Angina Pectoris Hyperlipidemia Peripheral Vascular Disease (HCC) Stroke Cerebrovascular Accident Personal History Hyperglycemia Gastroesophageal Reflux Disease Without Esophagitis Loss Hearing Bilateral documented in this encounter Additional Health Concerns Assessment Noted Time PHQ-9 Depression Total Score: 2 03/08/2015 11:16 AM CS T documented as of this encounter Care Teams Dioramist Relationship Specialty Start Date End Date Silver Givens M.D. PCP - General Family Medicine 11/10/19 12/09/[address] [place] [phone] documented as of this encounter
--- OUTSIDE RECORDS SUMMARY | 2021-12-18 08:06 | XMS_ITS | Encounter Summary ---
:1940 Author Organization [facility] Address [address] [place] [address] Care Team Providers Name Role Phone Silver Givens M.D. Primary Care Provider Encounter Details Date Type Department Care Team Description 06/19/2020 Orders Only [facility] PCP [facility] YARIELT Sa lindy Kirkland M.D. [address] [place], [place] [phone] (Wo rk) Social History [...] documented as of this encounter Care Teams Injection Molding Engineer Relationship Specialty Start Date End Date Silver Givens M.D. PCP - General Family Medicine 11/10/19 12/09/[address] [phone] documented as of this encounter
--- OUTSIDE RECORDS SUMMARY | 2021-12-18 08:06 | XMS_ITS | Encounter Summary ---
:1940 Author Organization [facility] Address [address] [place] [address] Care Team Providers Name Role Phone Silver Givens M.D. Primary Care Provider Encounter Details Date Type Department Care Team Description 09/29/2020 Hospital Encounter Department of Wood Car, Gastroenterology in [place], [place] [address] [place] [phone] Social History Tobacco Use Types Packs/Day Years [...] 10:14 AM CDTAssociated Order(s): [facility] [place] [facility] Patient Name: Obey Vines Procedure Date: [...] 10:10 AM CDTAssociated Order(s): COLONOSCOPY [facility] [place] [facility] Patient Name: Obey Vines Procedure Date: [...] bowel preparation was evaluated using the BBPS ([place] Bowel Preparation Scale) with scores of: Right [...] Component Value Ref Test Analysis Performed At [facility] Method Time Signature 10/04/2020 ECLR 8:26 [...] Code Phon e Number [facility]- [address] [place] [phone] [facility] [place] [address] System in [place] [address] [place] [address] UPPER GI ENDOSCOPY (09/29/2020 10:14 AM CDT) Specimen (Source) Anatomical Location Collection Method / Collectio n Time Received Time / Laterality Volume Narrative This result has an attachment that is no t available. Procedure Note Wood Car M.D. - 09/29/2020 10:14 AM CDT [facility] [place] [facility] Patient Name: Obey Vines Procedure Date: [...] - 09/29/2020 10:10 AM CDT [facility] [place] [facility] Patient Name: Obey Vines Procedure Date: [...] preparation was ev aluated using the BBPS ([place] Bowel Preparation Scal e) with scores of: [...] documented as of this encounter Care Teams Electrical Maintenance Mechanic Relationship Specialty Start Date End Date Silver Givens M.D. PCP - General Family Medicine 11/10/19 12/09/[address] [place] [phone] documented as of this encounter
--- OUTSIDE RECORDS SUMMARY | 2021-12-18 08:06 | XMS_ITS | Encounter Summary ---
:1940 Author Organization [facility] Address [address] [place] [address] Care Team Providers Name Role Phone Silver Givens M.D. Primary Care Provider Reason for Visit Reason Comments Communication 3 month endoscopy call, susanna salmeron Encounter Details Date Type Department Care Team Description 09/12/2020 Clinical Department of Carmen Mcdonald (3 Communication General Surgery in A, L.P.N. month endoscopy call, [place], [address] [place] [address]) [address] [phone] Social History Tobacco Use Types Packs/Day [...] Gualac positive stools (R19.5 If scheduled in [facility], pre-op appointment scheduled: No Pre-Endoscopy Education done: [...] testing 3-7 days prior at [address] [place] [address] documented in this encounter Plan of Treatment Not on filedocumented as of this encounter Results SARS Coronavirus-2 RNA, V Asymptomatic (09/25/2020 8:31 AM CDT) [facility] Method Time Signature SARS-CoV-2 Swab, 09/25/2020 [...] pe rformed using the Aptima SARS-CoV-2 assay ([employer] on the beRecruiteds tem under emergency use authorization (EUA) by the U.S. Food and Drug Administ ration. Fact sheets for this EUA assay can be fo und at the following links: For Healthcare Providers: https://www.eBrevia a.gov/media/956267/download For Patients: https://www.fda.gov/media/ 664165/download Specimen Anatomical Collection Method Collection Time Receive d Time (Source) Location / / Volume Laterality Varies 09/25/2020 8:31 AM 2:56 (Nasopharynx) CDT PM CDT Wood Car M.D. LAB MICROBIOLOGY - GENERAL O RDERABLES Performing Organization Address City/State/[facility] Phon e Number [facility]- [address] [place] [phone] [place] [address] [place] [address] System in [address] documented in this encounter Visit Diagnoses Diagnosis Anemia Iron Deficiency Blood Loss Chroni c - Primary documented in this encounter Additional Health Concerns Assessment Noted Time PHQ-9 Depression Total Score: 2 03/08/2015 11:16 AM CS T documented as of this encounter Care Teams Entertainment Usher Relationship Specialty Start Date End Date Silver Givens M.D. PCP - General Family Medicine 11/10/19 12/09/[address] [place] [phone] documented as of this encounter
--- OUTSIDE RECORDS SUMMARY | 2021-12-18 08:06 | XMS_ITS | Encounter Summary ---
:1940 Author Organization [facility] Address [address] [place] [address] Care Team Providers Name Role Phone Silver Givens M.D. Primary Care Provider Reason for Visit Physical Therapy (Routine) - Canceled Specialty Diagnoses / Procedures Referred By Contact Refer red To Contact Diagnoses Aftercare Total Shoulder Arthroplasty Laine Day, P.A.-C. [facility] Procedures PT Ongoing treatment [address] [facility] [place] [phone] Referral ID Status Reason Start Date Expiration Date Visits V isits Requested Authorized [id number] Canceled 02/07/2020 02/06/2021 99 99 Encounter Details Date Type Department Care Team Description 03/13/2020 Clinical Support Department of Laine Day, P.A.-C. 701 [facility] [place] [phone] Aftercare Total Rehabilitation Arti Lundberg P.TLara [address] [place] [phone] Shoulder Services in [address] [phone] Social History Tobacco Use Types Packs/Day Years [...] Lundberg P.T. Department of Rehabilitation Services in [address] [address] Dept: [phone] ENTARY SCHOOL PRINCIPAL documented in this encounter Plan of Treatment Not on filedocumented as of this encounter Visit Diagnoses Diagnosis Aftercare Total Shoulder Arthroplasty documented in this encounter Additional Health Concerns Assessment Noted Time PHQ-9 Depression Total Score: 2 03/08/2015 11:16 AM CS T documented as of this encounter Care Teams Automobiles Salesperson Relationship Specialty Start Date End Date Silver Givens M.D. PCP - General Family Medicine 11/10/19 12/09/[address] [place] [phone] documented as of this encounter
--- OUTSIDE RECORDS SUMMARY | 2021-12-18 08:06 | XMS_ITS | Encounter Summary ---
:1940 Author Organization [facility] Address [address] [place] [address] Care Team Providers Name Role Phone Silver [...] images can be found on the encounter neredya t produced images. Provider Not In System IMG NON RAD IMAGING PROCEDUR ES Performing Organization Address City/State/ZIP Code Phon e Number I[facility] IIMS NA documented in this encounter Visit Diagnoses Not on filedocumented in this encounter Additional Health Concerns Assessment Noted Time PHQ-9 Depression Total Score: 2 03/08/2015 11:16 AM JENNA Anthony documented as of this encounter Care Teams Architectural Examiner Relationship Specialty Start Date End Date Silver Givens M.D. PCP - General Family Medicine 11/10/19 12/09/[address] [place] [phone] documented as of this encounter
--- OUTSIDE RECORDS SUMMARY | 2021-12-18 08:06 | XMS_ITS | Encounter Summary ---
:1940 Author Organization [facility] Address [address] [place] [address] Care Team Providers Name Role Phone Silver Givens M.D. Primary Care Provider Reason for Visit Reason Comments Med list questions Encounter Details Date Type Department Care Team Description 01/20/2020 Clinical Communication Department of Silver Givens Me d list questions Family Medicine, MMarry [address], in [address] [address] [facility] [phone] [place], [place] (Work) [phone] Social History Tobacco Use [...] documented as of this encounter Care Teams Vp Clinical Relationship Specialty Start Date End Date Silver Givens M.D. PCP - General Family Medicine 11/10/19 12/09/[address] [place] [phone] documented as of this encounter
--- OUTSIDE RECORDS SUMMARY | 2021-12-18 08:06 | XMS_ITS | Encounter Summary ---
:1940 Author Organization [facility] Address [address] [place] [address] Care Team Providers Name Role Phone Silver Givens M.D. Primary Care Provider Reason for Visit Reason Comments Discharge Planning Encounter Details Date Type Department Care Team Description 01/18/2020 Clinical Communication Department of Agnes Jha Disc harge Planning Orthopedic Surgery R.N. in [address] [address] [place], [place] [phone] (Work) [phone] Social History Tobacco Use Types Packs/Day Years [...] yes Apartment/Senior Hi-Rise: no Assisted Living: no [facility] Facility (SNF): no Other: no 4. Description [...] your support? Patient's spouse Relative's home: yes [facility] facility (SNF): no (patient needs to call the SNF and give them their name, surgery date, type of surgery and insurance as ther may be a private cost to them and the nursing homes may not hold a spot for them) Home Care: no Outpatient therapy completed at: [facility] Discharge transportation: yes Plan B: What is [...] documented as of this encounter Care Teams Propeller Engineer Relationship Specialty Start Date End Date Silver Givens M.D. PCP - General Family Medicine 11/10/19 12/09/[address] [place] [phone] documented as of this encounter
--- OUTSIDE RECORDS SUMMARY | 2021-12-18 08:06 | XMS_ITS | Encounter Summary ---
:1940 Author Organization [facility] Address [address] [place] [address] Care Team Providers Name Role Phone Silver Givens M.D. Primary Care Provider Reason for Visit Reason Comments Post Hospital Follow-up [facility] Encounter Details Date Type Department Care Team Description 01/27/2020 Clinical Communication Department of Silver Givens [facility] Family MedicineMarisela Follow-up ([address]) Clinic, in [address] [phone] [facility] [phone] [place], [place] (Work) [phone] Social History Tobacco Use [...] documented as of this encounter Care Teams Newspaper Distributor Supervisor Relationship Specialty Start Date End Date Silver Givens M.D. PCP - General Family Medicine 11/10/19 12/09/[address] [place] [phone] documented as of this encounter
--- OUTSIDE RECORDS SUMMARY | 2021-12-18 08:06 | XMS_ITS | Encounter Summary ---
:1940 Author Organization [facility] Address [address] [place] [address] Care Team Providers Name Role Phone Silver Givens M.D. Primary Care Provider Reason for Visit Physical Therapy (Routine) - Canceled Specialty Diagnoses / Procedures Referred By Contact Refer red To Contact Diagnoses Aftercare Total Shoulder Arthroplasty Laine Day, P.A.-C. [facility] Procedures PT Ongoing treatment [address] [facility] [place] [place] [phone] Referral ID Status Reason Start Date Expiration Date Visits V isits Requested Authorized [id number] Canceled 02/07/2020 02/06/2021 99 99 Encounter Details Date Type Department Care Team Description 04/05/2020 Clinical Support Department of Laine Day, P.A.-C. [address] [facility] [place] [place] [phone] Aftercare Total Rehabilitation Arti Lundberg P.TLara [address] [place] [phone] Shoulder Services in [address] [address] Social History Tobacco Use Types Packs/Day Years [...] Lundberg P.T. Department of Rehabilitation Services in [address] [address] Dept: [phone] SHOP SUPERVISOR documented in this encounter Plan of Treatment Not on filedocumented as of this encounter Visit Diagnoses Diagnosis Aftercare Total Shoulder Arthroplasty documented in this encounter Additional Health Concerns Assessment Noted Time PHQ-9 Depression Total Score: 2 03/08/2015 11:16 AM CS T documented as of this encounter Care Teams Process Design Engineer Relationship Specialty Start Date End Date Silver Givens M.D. PCP - General Family Medicine 11/10/19 12/09/[address] [place] [phone] documented as of this encounter
--- OUTSIDE RECORDS SUMMARY | 2021-12-18 08:06 | XMS_ITS | Encounter Summary ---
:1940 Author Organization [facility] Address [address] [place] [address] Care Team Providers Name Role Phone Silver Givens M.D. Primary Care Provider Reason for Visit Reason Comments Post-op Outpatient (Routine) - Closed Specialty Diagnoses / Procedures Referred By Contact Refer red To Contact Orthopedic Surgery Laine Day, P.A. -C. [facility] Region [address] [facility] [place] [phone] Referral ID Status Reason Start Date Expiration Date Visits Requ ested Visits Authorized [id number] Closed 02/09/2020 02/08/2021 1 1 Encounter Details Date Type Department Care Team Description 03/08/2020 Office Visit Department of Laine Day, Follow Up E xamination Orthopedic Surgery in [place].-C. Postoperative Visit [place], [place] [address] [place] [address] (Primary Dx) [address] [place] [phone] Social History Tobacco Use Types Packs/Day [...] and these were reviewed with the patient. HOBBER OPERATOR documented in this encounter Plan of Treatment Not on filedocumented as of this encounter Results DX Shoulder Left 2+ Views (03/08/2020 9:49 AM GEAR HOBBER OPERATOR) Anatomical Region Laterality Modality Upper Extremity, Shoulder, Musculoskeletal RST LOS, Left Digital Radiography Musculoskeletal ARZ LOS, Muskuloskeletal FLA LOS Specimen (Source) Anatomical Collection Method Collection Time Re ceived Time Location / / Volume Laterality 03/08/2020 9:51 AM GEAR HOBBER OPERATOR Impressions 03/08/2020 9:54 AM GEAR HOBBER OPERATOR Left total reverse shoulder arthroplasty hardware components appear well seated and intact. No dislocation. Negative for acute fracture. Aortic calcifications. Thoracic spondylosis. Co mparison December 15, 2019. Narrative 03/08/2020 9:54 AM GEAR HOBBER OPERATOR EXAM: DX SHOULDER LEFT 2+ VIEWS [...] documented as of this encounter Care Teams Floor Waxer Relationship Specialty Start Date End Date Silver Givens M.D. PCP - General Family Medicine 11/10/19 12/09/[address] [place] [phone] documented as of this encounter
--- OUTSIDE RECORDS SUMMARY | 2021-12-18 08:06 | XMS_ITS | Encounter Summary ---
:1940 Author Organization [facility] Address [address] [place] [address] Care Team Providers Name Role Phone Silver Givens M.D. Primary Care Provider Reason for Referral Outpatient (Routine) - Closed Specialty Diagnoses / Procedures Referred By Contact Refer red To Contact Orthopedic Surgery Laine Day P.A. -C. [address] [phone] Referral ID Status Reason Start Date Expiration Date Visits Requ ested Visits Authorized [id number] Closed 02/09/2020 02/08/2021 1 1 Reason for Visit Reason Comments Follow-up Arthroplasty Outpatient (Routine) - Closed Specialty Diagnoses / Procedures Referred By Contact Refer red To Contact Orthopedic Surgery Marv Dodson M. D. [address] [address] Referral ID Status Reason Start Date Expiration Date Visits Requ ested Visits Authorized [id number] Closed 12/15/2019 12/14/2020 1 1 Encounter Details Date Type Department Care Team Description 02/09/2020 Office Visit Department of Laine Day, Follow Up E xamination Orthopedic Surgery in [place]. Postoperative Visit [place] [address] (Primary Dx) [address] [place] [phone] Social History Tobacco Use Types Packs/Day Years [...] documented as of this encounter Care Teams Catalog Library Assistant Relationship Specialty Start Date End Date Silver Givens M.D. PCP - General Family Medicine 11/10/19 12/09/[address] [place] [phone] documented as of this encounter
--- OUTSIDE RECORDS SUMMARY | 2021-12-18 08:07 | XMS_ITS | Encounter Summary ---
:[address] [facility] Address [address] [place] [address] Care Team Providers Name Role Phone Silver Givnes M.D. Primary Care Provider Encounter Details Date Type Department Care Team Description 12/15/2019 Hospital Encounter Department of [place], Maddie Osteoarthritis Radiology in Fabricio Fair M.D. [place], [place] [address] [facility] 701 [place] [phone] Social History Tobacco Use [...] documented as of this encounter Care Teams Purchasing Manager Relationship Specialty Start Date End Date Silver Givens M.D. PCP - General Family Medicine 11/10/19 12/09/[address] [place] [phone] documented as of this encounter
--- OUTSIDE RECORDS SUMMARY | 2021-12-18 08:07 | XMS_ITS | Encounter Summary ---
:1940 Author Organization [facility] Address [address] [place] [address] Care Team Providers Name Role Phone Silver Givens M.D. Primary Care Provider Reason for Visit Reason Comments Surgical Listing 01/25/[address] left total shoulder reversal Dr Dodson Encounter Details Date Type Department Care Team Description 12/15/2019 Clinical Communication Department of Tanya Dodson Listing Orthopedic Surgery Marisela Fair (01/25/20 left total in [address] Dodson ) 701 [place] [phone] Social History Tobacco Use Types Packs/Day Years [...] interview positive and should be referred tothe [facility] Nurse Line (Phone number ) and this [...] as of this encounter Care Teams Laundry Laborer Relationship Specialty Start Date End Date Silver Givens M.D. PCP - General Family Medicine 11/10/19 12/09/[address] [place] [phone] documented as of this encounter
--- OUTSIDE RECORDS SUMMARY | 2021-12-18 08:07 | XMS_ITS | Encounter Summary ---
:1940 Author Organization [facility] Address [address] [place] [address] Care Team Providers Name Role Phone Elsewhere, Pcp Primary Care Provider Unavailable Reason for Visit Reason Comments Pain Outpatient (Routine) - Closed Specialty Diagnoses / Procedures Referred By Contact Refer red To Contact Orthopedic Surgery Diagnoses Tear Rotator Cuff Complete Non Trauma Left Laila Loco, [facility] CN.P [address] [place], [place] [address] Referral ID Status Reason Start Date Expiration Date Visits Requ ested Visits Authorized [id number] Closed 08/24/2018 08/24/2019 1 1 Encounter Details Date Type Department Care Team Description 08/27/2018 Comprehensive Visit Department of [place], Tear Ro tator Cuff Orthopedic Surgery Marisela Fair Complete Non Trauma in [address] [address] [place], [place] [phone] (Work) [phone] Social History Tobacco Use Types Packs/Day Years [...] Tear Rotator Cuff Complete Non Trauma Left Ipk-wgos-roldmtvy-elbow arthrocentesis Date/Time: 08/27/2018 1:57 PM Performed by: MARV DUENAS Authorized by: MARV DUENAS Care team members present: West Technical Inspector utilized: print binding worker not needed Risks discussed with: patient Procedural [...] Name Priority Date/Time Associated Diagnosis Comme nts HI ARTHCS ASP/INJ Routine 08/27/2018 2:00 PM Tear Rotator Cuff Results for this MJR JT WO US CDT Complete Non Trauma procedur e are in Left the results section. documented in this encounter Results HI ARTHCS ASP/INJ MJR JT WO US (08/27/2018 2:00 PM CDT) Narrative MMODAL - 08/27/2018 2:00 PM CDT Marv Duenas M.D. ? 08/28/2018 ??8:20 AM Pwz-oali-ubyxatbn-elbow arthrocentesis Date/Time: 08/27/2018 1:57 PM Performed by: MARV DUENAS Authorized by: MARV DUENAS Care team members present: ??[place] Technical Inspector utilized: print binding worker not ne eded ?? Risks discussed with: [...] documented as of this encounter Care Teams Membership Correspondent Relationship Specialty Start Date End Date Elsewhere, Pcp PCP - General Internal Medicine 08/17/18 11/09/19 documented as of this encounter
--- OUTSIDE RECORDS SUMMARY | 2021-12-18 08:07 | XMS_ITS | Encounter Summary ---
:1940 Author Organization [facility] Address [address] [place] [address] Care Team Providers Name Role Phone Elsewhere, Pcp Primary Care Provider Unavailable Reason for Visit Appointment Request (Routine) - Closed Specialty Diagnoses / Procedures Referred By Contact Refer red To Contact Orthopedic Surgery Referral ID Status Reason Start Date Expiration Date Visits Requ ested Visits Authorized [id number] Closed 11/10/2018 11/10/2019 1 1 Encounter Details Date Type Department Care Team Description 11/25/2018 Office Visit Department of Marv Dodson, Bursitis (Primary Dx); Orthopedic Surgery in [place] Pain Shoulder Left [address] [phone] Social History Tobacco Use Types Packs/Day Years [...] M.D. - 11/25/2018 8:45 AM CDTAssociated Order(s): fia-tkog-jtcztpfv-elbow arthrocentesis: L subacromial bursa Post-Procedure Diagnose(s): Bursitis; [...] Name Priority Date/Time Associated Diagnosis Comme nts [place] ARTHCS ASP/INJ Routine 11/25/2018 8:45 AM Bursitis Results for this MJR JT WO US CDT Pain Shoulder Left procedure are in the results section. documented in this encounter Results [place] ARTHCS ASP/INJ MJR JT WO US (11/25/2018 [...] documented as of this encounter Care Teams Canal Driver Relationship Specialty Start Date End Date Elsewhere, Pcp PCP - General Internal Medicine 08/17/18 11/09/19 documented as of this encounter
--- OUTSIDE RECORDS SUMMARY | 2021-12-18 08:07 | XMS_ITS | Encounter Summary ---
:1940 Author Organization [facility] Address [address] [place] [address] Care Team Providers Name Role Phone Elsewhere, Pcp Primary Care Provider Unavailable Reason for Referral Outpatient (Routine) - Closed Specialty Diagnoses / Procedures Referred By Contact Yeimi pemberton To Contact Diagnoses Bursitis Subacromial Left Marv Dodson M.D. [facility] Region Procedures gpz-kjfn-rprzbwvt-elbow arthrocentesis: L subacromial bursa [address] [place] [phone] Referral ID Status Reason Start Date Expiration Date Visits Requ ested Visits Authorized [id number] Closed 03/01/2019 02/29/2020 1 1 Reason for Visit Appointment Request (Routine) - Closed Specialty Diagnoses / Procedures Referred By Contact Yeimi pemberton To Contact Orthopedic Surgery Referral ID Status Reason Start Date Expiration Date Visits Requ ested Visits Authorized [id number] Closed 01/26/2019 01/26/2020 1 Encounter Details Date Type Department Care Team Description 03/01/2019 Office Visit Department of Marv Dodson Bursitis Subacromial Orthopedic Surgery in [place] (Primary Dx) [place], [place] [address] [place] [phone] Social History Tobacco Use Types Packs/Day Years [...] encounter Procedure Notes Marv Dodson M.D. - 03/01/2019 9:30 AM CDTAssociated Order(s): nnl-nkqu-hrixweeh-elbow arthrocentesis: L subacromial bursa Post-Procedure Diagnose(s): Bursitis [...] Name Priority Date/Time Associated Diagnosis Comme nts [place] ARTHCS ASP/INJ Routine 03/01/2019 9:30 AM Bursitis Subacrom ial Results for this MJR JT WO US CDT Left procedure are i n the results section. documented in this encounter Results PA ARTHCS ASP/INJ MJR JT WO US (03/01/2019 [...] as of this encounter Care Teams Sewer Builder Relationship Specialty Start Date End Date Elsewhere, Pcp PCP - General Internal Medicine 08/17/18 11/09/19 documented as of this encounter
--- OUTSIDE RECORDS SUMMARY | 2021-12-18 08:07 | XMS_ITS | Encounter Summary ---
:1940 Author Organization [facility] Address [address] [place] [address] Care Team Providers Name Role Phone Silver Givens M.D. Primary Care Provider Reason for Visit Reason Comments Covid Screening Encounter Details Date Type Department Care Team Description 11/10/2019 Clinical Communication Department of Mike Montelongo, Covid Screening Medicine, Margarito Antonio [facility], [address] [address] [place], [place] [phone] (Work) [phone] Social History Tobacco Use Types Packs/Day Years Used Date Smoking Tobacco: Former Smokeless Tobacco: Never Alcohol Use Standard Drinks/Week Comments No 0 (1 standard drink = 0.6 oz pure alcoho l) Sex Assigned at Date Recorded Not on file documented as of this encounter Miscellaneous Notes Telephone Encounter - Mattie Mensah - 11/10/2019 4:06 PM CDT ([facility] and [facility] locations only: If the patient is not having symptoms and is requesting COVID-19 Nasal Swab testing only, use the process listed in the COVID- Patient Requesting COVID PCR Test OTG COVID-19 [place] Patient Requesting COVID PCR Test). 1. Do [...] Route reply to: n/a Scheduling Contact Number: [phone] documented in this encounter Plan of Treatment Not on filedocumented as of this encounter Visit Diagnoses Not on filedocumented in this encounter Additional Health Concerns Assessment Noted Time PHQ-9 Depression Total Score: 2 03/08/2015 11:16 AM CS T documented as of this encounter Care Teams Portfolio Assistant Relationship Specialty Start Date End Date Silver Givens M.D. PCP - General Family Medicine 11/10/19 12/09/[address] [place] [phone] documented as of this encounter
--- OUTSIDE RECORDS SUMMARY | 2021-12-18 08:07 | XMS_ITS | Encounter Summary ---
:1940 Author Organization [facility] Address [address] [place] [address] Care Team Providers Name Role Phone Unavailable [...] Type Department Care Team Description 07/03/2018 Emergency [place] [facility] Isiah Hart D izziness (Primary Dx); Department M[facility]; [address] [place] [address] [place] [id number] [phone] Social History Tobacco Use Types Packs/Day Years Used Date Smoking Tobacco: Former Smokeless Tobacco: Never Alcohol Use Standard Drinks/Week Comments No 0 (1 standard drink = 0.6 oz pure alcoho l) Sex Assigned at Date Recorded Not on file documented as of this encounter Last Filed Vital Signs Vital Sign Reading Time Taken Comments Blood Pressure 117/70 07/03/2018 10:30 PM INSTRUMENTATION SPECIALIST Pulse 57 07/03/2018 11:00 PM INSTRUMENTATION SPECIALIST Temperature - - Respiratory Rate 20 07/03/2018 11:00 PM INSTRUMENTATION SPECIALIST Oxygen Saturation 93% 07/03/2018 11:00 PM INSTRUMENTATION SPECIALIST Inhaled Oxygen Concentration - - Weight 67.1 kg (148 lb) 07/03/2018 8:28 PM INSTRUMENTATION SPECIALIST Height - - Body Mass Index 23.79 06/25/2016 8:20 AM INSTRUMENTATION SPECIALIST documented in this encounter Discharge Instructions AttachmentsThe following attachments cannot be sent through Care Everywhere. 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 eamjmssvazzx-fchdylyk-lmyvnet gluconate (MULTIVITAMIN WITH MINERALS) 9 mg iron/15 [...] Lightheadedness Dehydration Isiah Hart M.D. Resident 07/03/182245 RUMENTATION SPECIALIST documented in this encounter Plan of Treatment Not on filedocumented as of this encounter Procedures Procedure Name Priority Date/Time Associated Comments Diagnosis URINALYSIS WITH STAT 07/03/2018 9:59 PM Result s for this MICROSCOPIC INSTRUMENTATION SPECIALIST procedure are i n the results section. CBC WITH STAT 07/03/2018 9:42 PM Results f or this DIFFERENTIAL, B INSTRUMENTATION SPECIALIST procedure ar e in the results section. C-REACTIVE PROTEIN STAT 07/03/2018 9:42 PM Res ults for this (CRP), S/P INSTRUMENTATION SPECIALIST procedure are i n the results section. TROPONIN T, 5TH GEN, STAT 07/03/2018 9:42 PM R esults for this P INSTRUMENTATION SPECIALIST procedure are i n the results section. BASIC METABOLIC STAT 07/03/2018 9:42 PM Result s for this PANEL, S/P INSTRUMENTATION SPECIALIST procedure are i n the results section. ECG STAT 07/03/2018 8:55 PM Results f or this INSTRUMENTATION SPECIALIST procedure are i n the results section. documented in this encounter Results (ABNORMAL) Urinalysis with Microscopic (midstream) (07/03/2018 9:59 PM INSTRUMENTATION SPECIALIST) athologist Signature Source Midstream 07/03/2018 [facility] 10:06 PM [facility] Clarity Clear Clear 07/03/2018 [facility] 10:06 PM [facility] Color Yellow 07/03/2018 [facility] 10:06 PM [facility] Comment: ----REFERENCE VALUE---- Colorless Yellow Isabel Blood Negative Negative 07/03/2018 10:[address] [facility] Nitrite Negative Negative 07/03/2018 10:[address] [facility] Leukocyte Esterase Trace (A) Negative 07/03/2018 10:06 PM [facility] Protein Negative mg/dL 07/03/2018 10:[address] [facility] Comment: ----REFERENCE VALUE---- Negative Trace Glucose Negative Negative mg/dL 07/03/2018 10:06 PM [facility] Ketones, QI(U) Negative Negative mg/dL 07/03/2018 10:06 PM [facility] Bilirubin Negative Negative 07/03/2018 10:06 PM [facility] pH 6.0 5.0 - 8.0 07/03/2018 10:06 PM [facility] Specific [place] 1.010 1.001 - 1.035 07/03/2018 10:06 PM [facility] Urobilinogen 0.2 0.2 - 1.0 mg/dL 07/03/2018 10:06 PM [facility] White Blood Cells Occ-3 /hpf 07/03/2018 10:09 PM [facility] Comment: ----REFERENCE VALUE---- Males: 0-3 Females: 0-10 Unknown: 0-10 Red Blood Cells None Seen 0 - 2 /hpf 07/03/2018 10:09 PM [facility] Dysmorphic Red Blood <=25 <=25 % 07/03/2018 10:09 PM [facility] Hyaline Casts Occasional /lpf 07/03/2018 10:09 PM [facility] Specimen Anatomical Collection Method Collection Time Receive d Time (Source) Location / / Volume Laterality Urine (Urine, 07/03/2018 9:59 PM 07/04/19 19 9:59 Midstream) [facility] INSTRUMENTATION SPECIALIST Isiah Hart M.D. LAB URINE ORDERABLES Performing Organization Address City/State/ZIP Code Phon e Number [address] [id number] [place] [facility] Troponin T, 5th Generation (07/03/2018 9:42 PM INSTRUMENTATION SPECIALIST) athologist [facility] [place] Troponin T, 5th 8 <=15 ng/L 07/03/2018 [facility] gen 10:02 PM [facility] Comment: Biotin has been identified by the [place] as a potential interfering substance. ??Higher concentr ations of biotin may be found in multivitamins, hair/nail supple ments, and workout supplements. ??If the result does not ma [facility] clinical observations, repeat testing after patient refrains fr om the use of supplements for at least 12 hours. Specimen Anatomical Collection Method Collection Time Receive d Time (Source) Location / / Volume Laterality Blood (Blood, 07/03/2018 9:42 PM 07/04/19 9:44 Venous) INSTRUMENTATION SPECIALIST PM INSTRUMENTATION SPECIALIST Isiah Hart M.D. LAB BLOOD ADD-ON Performing Organization Address City/[facility]/ZIP Code Phon e Number [address] [address] [place] [facility] CRP (C-Reactive Protein) (07/03/2018 9:42 PM INSTRUMENTATION SPECIALIST) athologist [facility] [place] C-Reactive 0.9 <=8.0 mg/L 07/03/2018 [facility] Protein (CRP), 10:07 PM [facility] Specimen Anatomical Collection Method Collection Time Receive d Time (Source) Location / / Volume Laterality Blood (Blood, 07/03/2018 9:42 PM 07/04/19 9:44 Venous) INSTRUMENTATION SPECIALIST PM INSTRUMENTATION SPECIALIST Isiah Hart M.D. LAB BLOOD ADD-ON Performing Organization Address City/State/ZIP Code Phon e Number [address] [address] [place] [facility] CBC with Differential (07/03/2018 9:42 PM INSTRUMENTATION SPECIALIST) athologist Signature Hemoglobin 14.4 13.2 - 07/03/2018 [facility] 16.6 g/dL 9:47 PM [facility] Hematocrit 43.2 38.3 - 07/03/2018 [facility] 48.6 % 9:47 PM [facility] Erythrocytes 4.70 4.35 - 07/03/2018 [facility] 5.65 9:47 PM [facility] x10(12)/L [facility] MCV 91.9 78.2 - 07/03/2018 [facility] 97.9 fL 9:47 PM [facility] RBC Distrib Width 14.3 11.8 - 07/03/2018 [facility] 14.5 % 9:47 PM [facility] Platelet Count 202 135 - 317 07/03/2018 [facility] x10(9)/L 9:47 PM [facility] Leukocytes 8.2 3.4 - 9.6 07/03/2018 [facility] x10(9)/L 9:47 PM [facility] Neutrophils 5.79 1.56 - 07/03/2018 [facility] 6.45 9:47 PM [facility] x10(9)/L [facility] Lymphocytes 1.54 0.95 - 07/03/2018 [facility] 3.07 9:47 PM [facility] x10(9)/L [facility] Monocytes 0.55 0.26 - 07/03/2018 [facility] 0.81 9:47 PM [facility] x10(9)/L [facility] Eosinophils 0.27 0.03 - 07/03/2018 [facility] 0.48 9:47 PM [facility] x10(9)/L [facility] Basophils 0.02 0.01 - 07/03/2018 [facility] 0.08 9:47 PM [facility] x10(9)/L [facility] Specimen Anatomical Collection Method Collection Time Receive d Time (Source) Location / / Volume Laterality Blood (Blood, 07/03/2018 9:42 PM 07/04/19 19 9:44 Venous) INSTRUMENTATION SPECIALIST PM INSTRUMENTATION SPECIALIST Isiah Hart M.D. LAB BLOOD ADD-ON Performing Organization Address City/State/ZIP Code Phon e Number [facility]- [id number] [place] [id number] [place] [facility] BMP (Basic Metabolic Panel) (07/03/2018 9:42 PM INSTRUMENTATION SPECIALIST) P athologist Signature Potassium, P 4.5 3.6 - 5.2 07/03/2018 [facility] mmol/L 10:12 PM [facility] Sodium, P 140 135 - 145 07/03/2018 [facility] mmol/L 10:12 PM [facility] Chloride, P 103 98 - 107 07/03/2018 [facility] mmol/L 10:12 PM [facility] Bicarbonate, P 25 22 - 29 07/03/2018 [facility] mmol/L 10:13 PM [facility] Anion Gap, P 12 7 - 15 07/03/2018 [facility] 10:12 PM [facility] BUN (Blood Urea 16 8 - 24 07/03/2018 [facility] Nitrogen), P mg/dL 10:13 PM [facility] Creatinine, P 1.02 0.74 - 07/03/2018 [facility] 1.35 mg/dL 10:13 PM [facility] eGFR-Black/Afri 82 >=60 07/03/2018 [facility] can [place] mL/min/BSA 10:13 PM [facility] Comment: ----ADDITIONAL INFORMATION---- Estimated GFR calculated using the 2009 CKD_EPI creatinine equation. eGFR Non-Black/ 71 >=60 mL/min/BSA 07/03/2018 10:13 PM [facility] [place] [facility] Comment: ----ADDITIONAL INFORMATION---- Estimated GFR calculated using the 2009 CKD_EPI creatinine equation. Calcium, Total, P 9.9 8.8 - 10.2 mg/dL 07/03/2018 1 0:13 PM [facility] Glucose, P 126 70 - 140 mg/dL 07/03/2018 10:13 PM [facility] Specimen Anatomical Collection Method Collection Time Receive d Time (Source) Location / / Volume Laterality Blood (Blood, 07/03/2018 9:42 PM 07/04/19 19 9:44 Venous) INSTRUMENTATION SPECIALIST PM [facility] Isiah Hart M.D. LAB BLOOD ADD-ON Performing Organization Address City/State/ZIP Code Phon e Number [facility]- [id number] [address] [place] [facility] ECG 12 Lead (STAT) (07/03/2018 8:55 PM INSTRUMENTATION SPECIALIST) P athologist Signature Ventricular Rate 63 BPM MUSE ECG/Min MT Interval 164 ms MUSE QRSD Interval 78 ms MUSE QT Interval 418 ms MUSE QTC Interval 427 ms MUSE P [place] 37 degrees MUSE T Wave [place] 39 degrees MUSE Specimen Anatomical Collection Method Collection Time Receive d Time (Source) Location / / Volume Laterality 07/03/2018 8:55 PM 9 9:01 INSTRUMENTATION SPECIALIST PM INSTRUMENTATION SPECIALIST Impressions MUSE - 07/03/2018 9:01 PM INSTRUMENTATION SPECIALIST Sinus rhythm Premature ventricular complexes Cannot rule [...]
--- OUTSIDE RECORDS SUMMARY | 2021-12-18 08:07 | XMS_ITS | Encounter Summary ---
:1940 Author Organization [facility] Address [address] [place] [address] Care Team Providers Name Role Phone Elsewhere, Pcp Primary Care Provider Unavailable Reason for Visit Reason Onset Date Comments cardiac rehab referral 08/17/2018 Encounter Details Date Type Department Care Team Description 08/17/2018 Clinical Department of Greg cardiac rehab Communication Cardiovascular Sophia Soares, referral Medicine in [place], [place] [address] [place] [address] [phone] Social History Tobacco Use Types Packs/Day Years Used Date Smoking Tobacco: Former Smokeless Tobacco: Never Alcohol Use Standard Drinks/Week Comments No 0 (1 standard drink = 0.6 oz pure alcoho l) Sex Assigned at Date Recorded Not on file documented as of this encounter Miscellaneous Notes Telephone Encounter - Sophia Garza, [facility] - 08/17/2018 11:22 AM CDT INFORMATION DISCUSSED [...] referral if participation is recommended. 2. Eligibility: [place] and PCI 3. Exceptions/exclusions: None 4. Referral: [...] of this encounter Care Teams Director Of Rooms Relationship Specialty Start Date End Date Elsewhere, Pcp PCP - General Internal Medicine 08/17/18 11/09/19 documented as of this encounter
--- OUTSIDE RECORDS SUMMARY | 2021-12-18 08:07 | XMS_ITS | Encounter Summary ---
:1940 Author Organization [facility] Address [address] [place] [address] Care Team Providers Name Role Phone Unavailable Primary Care Provider Unavailable Encounter Details Date Type Department Care Team Description 08/15/2018 Surgery Division of Cardiovascular Jacques Barraza , Coronary Angiography Diseases in [facility] [address] [place] [phone] Social History Tobacco Use Types Packs/Day Years [...] Case IDs Date Procedure Surgeon Location Status [id number] 08/15/18 Coronary Angiography Jacques Barraza M.D. RST [...] started on heparin drip and transferred to [facility] for further management of NSTEMI. He underwent [...] exam, and recommendations by Dr. Meier. #1 Bvq-QZ-wrdkmqoyi myocardial infarction Mr. Vines will continue with [...] with the plan. CT CT Job ID: [id number] documented in this encounter H&P Notes Tom [...] intravenous heparin. 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 Monk and Dr. Corral. #1 Rxq-TY-xlgaefcnw myocardial infarction Mr. Vines was preloaded with [...] with the plan. CT CT Job ID: [id number] TTET Reji Espitia M.D. - 08/15/2018 8:47 [...] focal neurologic complaints. In the ED in [place], he was noted to have stable vitals [...] on heparin gtt prior to transfer to [facility]. Upon arrival, he is hemodynamically stable [...] interventions at this time. Rest per Dr. Shayan Monk M.D. Internal Medicine, PGY3 Tj Monk [...] focal neurologic complaints. In the ED in [place], he was noted to have stable vitals [...] on heparin gtt prior to transfer to [facility]. Upon arrival, he is hemodynamically stable [...] male with a history of CAD s/p RI and stent placement (mid-RCA, 2011), hyperlipidemia, and [...] ED physician spoke with Dr. Calderon at [facility] for recommendations and was suggested to treat his NSTEMI with aspirin 324 mg oral, Plavix 300 mg oral, and start a heparin bolus and drip. The was then transferred to [facility] via ambulance for further management of his [...] GERD, hyperlipidemia, ischemic stroke, CAD status post RI and stent placement - Surgical history: Carotid [...] ASSESSMENT/PLAN #1 NSTEMI #2 Coronary artery disease, RI s/p stent to mid-RCA (2011) #3 Ischemic stroke s/p carotid enterectomy #4 Hyperlipidemia Mr. Vines is a 78 y/o male with a history of CAD s/p RI and stent placement (mid- RCA, 2011) and [...] Summary: Education complete. Pt will d/c to [facility] [place]. No further questions CARDIOVASCULAR - ADULT ??? [...] Implant Name Type Inv. Item Serial No. Information Technology Auditor Lot No. LRB No. Used Action [employer]NT [employer] SHAHAB [id number] - [id number] Cardiac Stent [employer]NT [employer] SHAHAB [id number] Upshot [id number] N/A 1 Implanted Antiplatelet regimen: Aspirin 81 [...] Jung Castro M.D., M.P.H. Interventional and Structural Musical Instrument Supervisor [facility] 08/15/18 9:53 AM documented in this [...] started on heparin drip and transferred to [facility] for further management of NSTEMI. He underwent [...] (08/16/2018 7:44 AM CDT) Analysis Performed At [facility] logist Time Signature Potassium, S 4.2 3.6 - 5.2 08/16/2018 [facility] mmol/L 8:51 AM CDT LABORATORIES - [facility] Sodium, S 141 135 - 145 08/16/2018 [facility] mmol/L 8:51 AM CDT LABORATORIES - [facility] Chloride, S 102 98 - 107 08/16/2018 [facility] mmol/L 8:51 AM CDT LABORATORIES [facility] Bicarbonate, S 23 22 - 29 08/16/2018 [facility] mmol/L 8:51 AM CDT LABORATORIES [facility] Anion Gap 16 (H) 7 - 15 08/16/2018 [facility] 8:51 AM CDT LABORATORIES [facility] BUN (Blood 16 8 - 24 08/16/2018 [facility] Urea mg/dL 8:51 AM CDT LABORATORIES - Nitrogen), S [facility] Creatinine, S 1.18 0.74 - 08/16/2018 [facility] 1.35 mg/dL 8:51 AM CDT LABORATORIES [facility] eGFR-Non 59 (L) >=60 08/16/2018 [facility] Black/ mL/min/BSA 8:51 AM CDT LABORATORIES - [facility] Comment: ----ADDITIONAL INFORMATION---- Estimated GFR calculated using the 2009 CKD_EPI creatinine equation. eGFR-Black/ 68 >=60 mL/min/BSA 08/16/2018 8:51 [facility] CDT LABORATORIES [facility] Comment: ----ADDITIONAL INFORMATION---- Estimated GFR calculated using the 2009 CKD_EPI creatinine equation. Calcium, Total, S 9.5 8.8 - 10.2 mg/dL 08/16/2018 8:51 AM [facility] CDT [facility] Glucose, S 100 70 - 140 mg/dL 08/16/2018 8:51 AM [facility] CDT LAB[facility]ATORIES [facility] Specimen Anatomical Collection Method Collection Time Receive d Time (Source) Location / / Volume Laterality Blood (Blood, 08/16/2018 7:44 AM 08/17/19 19 8:16 Venous) CDT AM CDT Tom Johnson M.D., Ph.D. LAB BLOOD ADD-ON Performing Organization Address City/State/ZIP Code Phon e Number [facility] LABORATORIES - [address] [address] [facility] CBC with Differential, Blood (08/16/2018 7:44 AM CDT) [facility] gist Method Time Signature Hemoglobin 15.2 13.2 - 08/16/2018 [facility] 16.6 g/dL 8:21 AM CDT LABORATORIES [facility] Hematocrit 44.7 38.3 - 08/16/2018 [facility] 48.6 % 8:21 AM CDT LAB[facility]ATORIES - [facility] Erythrocytes 4.99 4.35 - 08/16/2018 [facility] 5.65 8:21 AM CDT LABORATORIES - x10(12)/L [facility] MCV 89.6 78.2 - 08/16/2018 [facility] 97.9 fL 8:21 AM CDT LABORATORIES - [facility] RBC Distrib Width 14.1 11.8 - 08/16/2018 [facility] 14.5 % 8:21 AM CDT LAB[facility]ATORIES - [facility] Platelet Count 231 135 - 317 08/16/2018 [facility] x10(9)/L 8:21 AM CDT [facility]ATOR[facility] - [facility] Leukocytes 8.1 3.4 - 9.6 08/16/2018 [facility] x10(9)/L 8:21 AM CDT [facility]ATOR[facility] - [facility] Neutrophils 5.20 1.56 - 08/16/2018 [facility] 6.45 8:21 AM CDT LABORATORIES - x10(9)/L [facility] Lymphocytes 2.03 0.95 - 08/16/2018 [facility] 3.07 8:21 AM CDT LABORATORIES - x10(9)/L [facility] Monocytes 0.60 0.26 - 08/16/2018 [facility] 0.81 8:21 AM CDT LABORATORIES - x10(9)/L [facility] Eosinophils 0.20 0.03 - 08/16/2018 [facility] 0.48 8:21 AM CDT LABORATORIES - x10(9)/L [facility] Basophils 0.04 0.01 - 08/16/2018 [facility] 0.08 8:21 AM CDT LABORATORIES - x10(9)/L [facility] Specimen Anatomical Collection Method Collection Time Receive d Time (Source) Location / / Volume Laterality Blood (Blood, 08/16/2018 7:44 AM 08/17/19 19 8:16 Venous) CDT AM CDT Tom Johnson M.D., Ph.D. LAB BLOOD ADD-ON Performing Organization Address City/State/ZIP Code Phon e Number [facility] LABORATORIES - [address] [place], [place] [address] [facility] (ABNORMAL) Troponin T, 6H, 5th Gen (08/15/2018 12:37 PM CDT) Patholo gist Method Time Signature Troponin T, 6 433 (H) <=15 ng/L 08/15/2018 [facility] hr, 5th gen 1:09 PM CDT [facility] Comment: Consider acute myocardial injur y 6H Delta 127 ng/L 08/15/2018 1:09 PM CDT [facility] - [facility] 6H Delta Interp Changing 08/15/2018 1:09 PM CDT [facility] - [facility] Comment: Evaluate for acute myocardial i njury Specimen Anatomical Collection Method Collection Time Receive d Time (Source) Location / / Volume Laterality Blood 08/15/2018 12:37 08/15/2018 PM CDT 12:43 PM CDT Darvin Corral M.D. LAB BLOOD TROPONIN Performing Organization Address [facility] Phon e Number [facility] - [address] Heparin Anti-Xa Assay (08/15/2018 11:00 AM CDT) P athologist Signature Heparin 1.62 IU/mL 08/15/2018 [facility] Anti-Xa, P 12:53 PM CDT [facility] Comment: UFH therapeutic range: ?? 0.30-0.70 IU/mL [...] LAB BLOOD NON ADD-ON Performing Organization Address [facility] Phon e Number [facility] LABORATORIES - [address] CORONARY ANGIOGRAPHY, STENT PLACEMENT, PERCUTANEOUS CORONARY [...] the original. See PDF For Result Vaughn Rdaer M.D., Ph.D. CV CARDIAC CATH PROCEDURES (ABNORMAL) ACT (Activated Clotting Time), POCT (08/15/2018 9:35 AM CDT) P athologist Signature Activated 307 (H) 84 - 139 08/15/[address] Clotting Time, sec 9:41 AM CDT [facility] POCT INPATIENT LABS Specimen Anatomical Collection Method Collection Time Receive d Time (Source) Location / / Volume Laterality Blood 08/15/2018 9:35 AM 9 9:41 CDT AM CDT Unknown Provider LAB POCT ORDERABLES - DEVICE Performing Organization Address City/[facility]/ZIP Code Phon e Number POC RST [facility] INPATIENT LABS [address] [facility] [address] [address] (ABNORMAL) ACT (Activated Clotting Time), POCT (08/15/2018 9:14 AM CDT) P athologist Signature Activated 168 (H) 84 - 139 08/15/[address] Clotting Time, sec 9:18 AM CDT [facility] POCT INPATIENT LABS Specimen Anatomical Collection Method Collection Time Receive d Time (Source) Location / / Volume Laterality Blood 08/15/2018 9:14 AM 9 9:18 CDT AM CDT Unknown Provider LAB POCT ORDERABLES - DEVICE Performing Organization Address City/[facility]/ZIP Code Phon e Number POC RST [facility] INPATIENT LABS [address] [facility] [address] [address] Bilirubin, Direct (08/15/2018 6:00 AM CDT) P athologist Signature Bilirubin, 0.2 0.0 - 0.3 08/15/2018 [facility] Direct, S mg/dL 8:25 AM CDT LABORATORIES [facility] Specimen Anatomical Collection Method Collection Time Receive d Time (Source) Location / / Volume Laterality Blood (Blood, 08/15/2018 6:00 AM 08/16/19 19 6:20 Venous) CDT AM CDT Vaughn Rader M.D., Ph.D. LAB BLOOD ADD-ON Performing Organization Address City/State/ZIP Code Phon e Number [facility] LABORATORIES - [address] [place], [place] [address] [facility] (ABNORMAL) Comprehensive Metabolic Panel (08/15/2018 6:00 AM CDT) Analysis Performed At Patho logist Time Signature Potassium, S 4.5 3.6 - 5.2 08/15/2018 [facility] mmol/L 8:25 AM CDT [facility] - [facility] Sodium, S 144 135 - 145 08/15/2018 [facility] mmol/L 8:25 AM CDT [facility]IES - [facility] Chloride, S 102 98 - 107 08/15/2018 [facility] mmol/L 8:25 AM CDT [facility]ATORIES - [facility] Bicarbonate, S 24 22 - 29 08/15/2018 [facility] mmol/L 8:25 AM CDT LAB[facility]ATORIES - [facility] Anion Gap 18 (H) 7 - 15 08/15/2018 [facility] 8:25 AM CDT LAB[facility]ATORIES - [facility] BUN (Blood 14 8 - 24 08/15/2018 [facility] Urea mg/dL 8:25 AM CDT LABORATORIES - Nitrogen), S [facility] Creatinine, S 1.14 0.74 - 08/15/2018 [facility] 1.35 mg/dL 8:25 AM CDT LABORATORIES [facility] eGFR-Non 62 >=60 08/15/2018 [facility] Black/ mL/min/BSA 8:25 AM CDT LABORATORIES - [facility] Comment: ----ADDITIONAL INFORMATION---- Estimated GFR calculated using the 2009 CKD_EPI creatinine equation. eGFR-Black/ 71 >=60 mL/min/BSA 08/15/2018 8:25 [facility] [place] AM CDT LABORATORIES [facility] Comment: ----ADDITIONAL INFORMATION---- Estimated GFR calculated using the 2009 CKD_EPI creatinine equation. Calcium, Total, S 9.6 8.8 - 10.2 08/15/2018 8:25 [facility] mg/dL AM CDT [facility] Glucose, S 102 70 - 140 08/15/2018 8:25 [facility] mg/dL AM CDT [facility] Protein, Total, S 6.4 6.3 - 7.9 08/15/2018 8:25 [facility] g/dL AM CDT [facility] Albumin, S 4.3 3.5 - 5.0 08/15/2018 8:25 [facility] g/dL AM CDT [facility] Aspartate 62 (H) 8 - 48 U/L 08/15/2018 8:25 [facility] Aminotransferase (AST), AM CDT LABORA TORIES - S [facility] Alkaline Phosphatase, S 142 (H) 40 - 129 U/L 08/15/2018 8: 25 [facility] AM CDT [facility] Alanine Aminotransferase 25 7 - 55 U/L 08/15/2018 8:2 5 [facility] (ALT), S AM CDT [facility] Bilirubin, Total, S 1.2 <=1.2 mg/dL 08/15/2018 8:25 [facility] AM CDT [facility] Specimen Anatomical Collection Method Collection Time Receive d Time (Source) Location / / Volume Laterality Blood (Blood, 08/15/2018 6:00 AM 08/16/19 19 6:20 Venous) CDT AM CDT Vaughn Rader M.D., Ph.D. LAB BLOOD ADD-ON Performing Organization Address City/State/ZIP Code Phon e Number [facility] - [address] [place], [place] [address] [facility] (ABNORMAL) Troponin T, 2H/6H, 5th Gen (08/15/2018 6:00 AM CDT) [facility] Method Time Signature Troponin T, 2 366 (H) <=15 ng/L 08/15/2018 [facility] hr, 5th gen 6:38 AM CDT [facility] Comment: Consider acute myocardial injur y 2H Delta 60 ng/L 08/15/2018 6:38 AM CDT [facility] 2H Delta Interp Changing 08/15/2018 6:38 AM CDT [facility] Comment: Evaluate for acute myocardial i njury Troponin T, 6 hr, 5th CANCELED ng/L 08/15/2018 11: 23 AM [facility] LABORATORIES gen CDT - [facility] Comment: Hemolyzed redraw requested Result canceled by the ancillary Specimen Anatomical Collection Method Collection Time Receive d Time (Source) Location / / Volume Laterality Blood (Blood, 08/15/2018 6:00 AM 08/16/19 19 6:07 Venous) CDT AM CDT Narrative [facility] - [facility] - 08/15/2018 11:25 AM CDT Specimen Information: Specimen ID: [id number] Specimen Type: Blood Specimen Collection Start Date: 08/16/19 ??6:00 AM Specimen Received Date: 08/15/2018 ??6:0 7 AM Specimen ID: [id number] Specimen Type: Blood Specimen Collection Start Date: 08/16/19 11:00 AM Specimen Received Date: 08/15/2018 11:08 AM Vaughn Rader M.D., Ph.D. LAB BLOOD TROPONIN Performing Organization Address City/State/ZIP Code Phon e Number [facility] LABORATORIES - [address] (ABNORMAL) Troponin T, Baseline, 5th gen (08/15/2018 4:23 AM CDT) Patholo gist Method Time Signature Troponin T, 306 (H) <=15 ng/L 08/15/2018 [facility] Baseline, 5th 4:50 AM CDT LABORATORIES - gen [facility] Comment: Consider acute myocardial injur y Specimen Anatomical Collection Method Collection Time Receive d Time (Source) Location / / Volume Laterality Blood (Blood, 08/15/2018 4:23 AM 08/16/19 19 4:29 Venous) CDT AM CDT Vaughn Rader M.D., Ph.D. LAB BLOOD TROPONIN Performing Organization Address City/State/ZIP Code Phon e Number [facility] LABORATORIES - [address] APTT (Activated Partial Thromboplastin Time) (08/15/2018 4:04 AM CDT) P athologist Signature Activated 35 25 - 37 08/15/2018 [facility] Partial sec 4:48 AM CDT LABORATORIES - Thrombopl [facility] Specimen Anatomical Collection Method Collection Time Receive d Time (Source) Location / / Volume Laterality Blood (Blood, 08/15/2018 4:04 AM 08/16/19 4:38 Venous) CDT AM CDT Vaughn Rader M.D., Ph.D. LAB BLOOD ADD-ON Performing Organization Address City/State/ZIP Code Phon e Number [facility] LABORATORIES - [address] [place], [place] [address] [facility] documented in this encounter Visit [...] Provider: Kody Restrepo R.N.)0902 (Stopped - Provider: Herbie Brady R.N.) 0-40 Units/kg/hr ? 65.2 kg [...] with maintenance fluid. NaCl 0.9% infusion 0846 ([facility] Hold - Pro vider: Transfer Provider, Automatic - Reason: Patient not available)1048 ([facility] Unhold - Provider: Transfer Provider, [...] nitroglycerin SL tablet 0.4 mg (NITROSTAT) 0846 ([facility] Hold - Provider: Transfer Provider, Automatic - Reason: Patient not available)1048 ([facility] Unhold - Provider: Transfer Provider, [...]
--- OUTSIDE RECORDS SUMMARY | 2021-12-18 08:07 | XMS_ITS | Encounter Summary ---
:1940 Author Organization [facility] Address [address] [place] [address] Care Team Providers Name Role Phone Unavailable Primary Care Provider Unavailable Encounter Details Date Type Department Care Team Description 08/13/2018 Hospital Encounter Department of Laila Loco [facility] [place] [address] [facility] [address] [place] [address] [address] [address] [place], [place] [phone] (Work) [phone] Social History Tobacco Use Types Packs/Day Years [...] tartrate 0 06/23/201708/15 (for_LOPRESSOR) 25 mg tablet csabzfijbnxk-grtjbhgd-wba Take 1 tablet by 0 06/0608/15/2018 ifrah [...]
--- OUTSIDE RECORDS SUMMARY | 2021-12-18 08:07 | XMS_ITS | Encounter Summary ---
:1940 Author Organization [facility] Address [address] [place] [address] Care Team Providers Name Role Phone Unavailable Primary Care Provider Unavailable Encounter Details Date Type Department Care Team Description 08/13/2018 Hospital Encounter Department of Laila Loco, Marcus Cervical Radiology in [place], [place] 17[address] [facility] [address] [place] [phone] Social History Tobacco Use Types Packs/Day Years [...] tartrate 0 06/23/201708/15 (for_LOPRESSOR) 25 mg tablet ojayqhysljqm-ittjstga-roy Take 1 tablet by 0 06/0608/15/2018 ifrah [...] Magnetic Resonance Neuroradiology ARZ LOS, Neuroradiology FLA [facility] Specimen (Source) Anatomical Collection Method [...]
--- OUTSIDE RECORDS SUMMARY | 2021-12-18 08:07 | XMS_ITS | Encounter Summary ---
:1940 Author Organization [facility] Address [address] [place] [address] Care Team Providers Name Role Phone Elsewhere, Pcp Primary Care Provider Unavailable Encounter Details Date Type Department Care Team Description 08/28/2018 [facility] Laila Loco Memory (Primary [facility] PERRIS M, C.N.P. Dx) [facility] [address] [place] [address] [id number] Social History Tobacco Use Types Packs/Day Years [...] documented as of this encounter Care Teams Literacy Tutor Relationship Specialty Start Date End Date Elsewhere, Pcp PCP - General Internal Medicine 12/10/21 documented as of this encounter
--- OUTSIDE RECORDS SUMMARY | 2021-12-18 08:07 | XMS_ITS | Encounter Summary ---
:1940 Author Organization [facility] Address [address] [place] [address] Care Team Providers Name Role Phone Silver Givens M.D. Primary Care Provider Reason for Visit Reason Comments Medication Visit recheck Encounter Details Date Type Department Care Team Description 12/14/2019 Office Visit Department of Family Silver Givens, Pain Shoulder Left (Primary Dx); Margarito Kiser M.D. Atherosclerotic Heart Disease Of [place] Coronary Artery Without Angina Pectoris; [facility], in [address] [place] [address] Hyperten sive Heart Disease Without Heart Failure; [place], [facility] Hyperlipidemia; [place], [place] Peripheral Vascular Disease (HCC); [address] [place] [address] [address] [address] Polymyalgia Rheumatica (HCC) [place], [place] [phone] (Work) [phone] Social History Tobacco Use Types Packs/Day Years [...] orthopedic evaluation #2 Atherosclerotic Heart Disease Of [place] Coronary Artery Without Angina Pectoris Continue current [...] Left - Primary Atherosclerotic Heart Disease Of [place] Coronary Artery Without Angina Pectoris Hypertensive Heart Disease Without Heart Failure Hyperlipidemia Peripheral Vascular Disease (HCC) Polymyalgia Rheumatica (HCC) documented in this encounter Additional Health Concerns Assessment Noted Time PHQ-9 Depression Total Score: 2 03/08/2015 11:16 AM CS T documented as of this encounter Care Teams Software Test Manager Relationship Specialty Start Date End Date Silver Givens M.D. PCP - General Family Medicine 11/10/19 12/09/[address] [address] documented as of this encounter
--- OUTSIDE RECORDS SUMMARY | 2021-12-18 08:07 | XMS_ITS | Encounter Summary ---
:1940 Author Organization [facility] Address [address] [place] [address] Care Team Providers Name Role Phone Silver Givens M.D. Primary Care Provider Reason for Referral Outpatient (Routine) - Closed Specialty Diagnoses / Procedures Referred By Contact Refer red To Contact Family Medicine Diagnoses Primary Osteoarthritis [facility] [address] [facility] [place] [phone] Referral ID Status Reason Start Date Expiration Date Visits Requ ested Visits Authorized [id number] Closed 12/15/2019 12/14/2020 1 1 Outpatient (Routine) - Closed Specialty Diagnoses / Procedures Referred By Contact Refer red To Contact General Surgery Diagnoses Primary Osteoarthritis Shoulder Left [facility] [address] [facility] [place] [address] Referral ID Status Reason Start Date Expiration Date Visits Requ ested Visits Authorized [id number] Closed 12/15/2019 12/14/2020 1 1 Outpatient (Routine) - Closed Specialty Diagnoses / Procedures Referred By Contact Refer nilay To Contact Orthopedic Surgery Marv Dodson M. D. [facility] [address] [place] [phone] Referral ID Status Reason Start Date Expiration Date Visits Requ ested Visits Authorized [id number] Closed 12/15/2019 12/14/2020 1 1 Reason for Visit Reason Comments Pain Follow-up Appointment Request (Routine) - Closed Specialty Diagnoses / Procedures Referred By Contact Refer red To Contact Orthopedic Surgery Referral ID Status Reason Start Date Expiration Date Visits Requ ested Visits Authorized [id number] Closed 11/26/2019 11/25/2020 1 1 Encounter Details Date Type Department Care Team Description 12/15/2019 Office Visit Department of [place], Primary Osteoa rthritis Orthopedic Surgery in [place] Shoulder Left (Primary [address] Dx) [address] [place] [address] [place] [phone] Social History Tobacco Use Types Packs/Day Years [...] Associated Diagnoses Order [facility] Orthopedic Surgery Outpatient Referral Routine Ex pected: [...] RNA, V Asymptomatic (01/22/2020 9:29 AM CDT) [facility] Method Time Signature SARS-CoV-2 Swab, 01/22/2020 [...] is performed using the Aptima SARS-CoV-2 assay ([employer] which has received Emergency Use Authori zation (EUA) by the U.S. Food and Drug Administration. Fact sheets for this Emergency Use Autho rization (EUA) assay can be found at the following links: For Healthcare Providers: https://www.[employer] a.gov/media/062513/download For Patients: https://www.fda.gov/media/ 209894/download Specimen Anatomical Collection Method Collection Time Receive d Time (Source) Location / / Volume Laterality Varies 01/22/2020 9:29 AM 0 3:53 (Nasopharynx) CDT PM CDT Marv Dodson M.D. LAB MICROBIOLOGY - GENERAL O RDERABLES Performing Organization Address City/State/ZIP Code Phon e Number [facility]- [address] [place] [address] [phone] [facility] [place] [address] [address] DX Shoulder Left 2+ Views (12/15/2019 [...] documented as of this encounter Care Teams Comb Fixer Relationship Specialty Start Date End Date Silver Givens M.D. PCP - General Family Medicine 11/10/19 12/09/[address] [place] [phone] documented as of this encounter
--- OUTSIDE RECORDS SUMMARY | 2021-12-18 08:07 | XMS_ITS | Encounter Summary ---
:1940 Author Organization [facility] Address [address] [place] [address] Care Team Providers Name Role Phone Elsewhere, Pcp Primary Care Provider Unavailable Reason for Referral Outpatient (Routine) - Closed Specialty Diagnoses / Procedures Referred By Contact Refer red To Contact Diagnoses Pain Shoulder Left Marv Dodson M.D. [facility] Region Procedures kpk-qryd-lyvtvomx-elbow arthrocentesis: L glenohumeral [address] [place] [phone] Referral ID Status Reason Start Date Expiration Date Visits Requ ested Visits Authorized [id number] Closed 09/08/2019 09/07/2020 1 1 Reason for Visit Reason Comments Arthritis Pain Encounter Details Date Type Department Care Team Description 09/08/2019 Office Visit Department of Marv Dodson Pain Shou lder Left Orthopedic Surgery in [place] (Primary Dx) [place]ric[place] [address] [facility] [address] [place] [phone] Social History Tobacco Use Types Packs/Day Years [...] M.D. - 09/08/2019 9:15 AM CDTAssociated Order(s): xtf-rxtb-pewyxmns-elbow arthrocentesis: L glenohumeral Post-Procedure Diagnose(s): Pain Shoulder [...] Name Priority Date/Time Associated Diagnosis Comme nts MA ARTHCS ASP/INJ Routine 09/08/2019 9:15 AM Pain Shoulder Lef t Results for this MJR JRaj WO US CDT procedure are i n the results section. documented in this encounter Results MA ARTHCS ASP/INJ MJR JT WO US (09/08/2019 [...] documented as of this encounter Care Teams Analytic Programmer Relationship Specialty Start Date End Date Elsewhere, Pcp PCP - General Internal Medicine 08/17/18 11/09/19 documented as of this encounter
--- OUTSIDE RECORDS SUMMARY | 2021-12-18 08:07 | XMS_ITS | Encounter Summary ---
:1940 Author Organization [facility] Address [address] [place] [address] Care Team Providers Name Role Phone Unavailable Primary Care Provider Unavailable Encounter Details Date Type Department Care Team Description 08/15/2018 - Hospital Encounter [facility] Melanie Calderon M.B., B.Ch. [address] [place] [phone] Non-ST Elevation 08/16/2018 [facility], Tom Vines M.D., Ph.D. [address] [place] [phone] [facility] Infarction (HCC) [facility], (Primary Dx) Fifth Floor [address] [place] [phone] Social History Tobacco Use Types Packs/Day Years [...] Case IDs Date Procedure Surgeon Location Status [id number] 08/15/18 Coronary Angiography Jacques Barraza M.D. RST [...] started on heparin drip and transferred to [facility] for further management of NSTEMI. He underwent [...] exam, and recommendations by Dr. Meier. #1 Cmz-WG-emflfetwe myocardial infarction Mr. Vines will continue with [...] with the plan. CT CT Job ID: [id number] documented in this encounter H&P Notes Tom [...] intravenous heparin. He was taken to the animal laboratory technician this morning, after informed consent was obtained, [...] by Dr. Monk and Dr. Corral. #1 Bbn-GW-yhqbvgqyt myocardial infarction Mr. Vines was preloaded with [...] with the plan. CT CT Job ID: [id number] Reji Espitia M.D. - 08/15/2018 8:47 AM [...] focal neurologic complaints. In the ED in [place], he was noted to have stable vitals [...] on heparin gtt prior to transfer to [facility]. Upon arrival, he is hemodynamically [...] focal neurologic complaints. In the ED in [place], he was noted to have stable vitals [...] on heparin gtt prior to transfer to [facility]. Upon arrival, he is hemodynamically [...] male with a history of CAD s/p CA and stent placement (mid-RCA, 2011), hyperlipidemia, and [...] ED physician spoke with Dr. Calderon at [facility] for recommendations and was suggested to treat his NSTEMI with aspirin 324 mg oral, Plavix 300 mg oral, and start a heparin bolus and drip. The was then transferred to [facility] via ambulance for further management of his [...] GERD, hyperlipidemia, ischemic stroke, CAD status post CA and stent placement - Surgical history: Carotid [...] ASSESSMENT/PLAN #1 NSTEMI #2 Coronary artery disease, CA s/p stent to mid-RCA (2011) #3 Ischemic stroke s/p carotid enterectomy #4 Hyperlipidemia Mr. Vines is a 78 y/o male with a history of CAD s/p CA and stent placement (mid- RCA, 2011) and [...] Summary: Education complete. [place] [facility] No further questions CARDIOVASCULAR - ADULT ??? [...] Implant Name Type Inv. Item Serial No. Sharepoint Net Developer Lot No. LRB No. Used Action STNT SYNERGY SHAHAB [id number] - [id number] Cardiac Stent STNT SYNERGY SHAHAB [id number] [employer] [id number] N/A 1 Implanted Antiplatelet regimen: Aspirin 81 [...] Jung Castro M.D., M.P.H. Interventional and Structural Gun Barrel Finisher [facility] 08/15/18 9:53 AM documented in [...] started on heparin drip and transferred to [facility] for further management of NSTEMI. He underwent [...] (08/16/2018 7:44 AM CDT) [facility] Signature Potassium, S 4.2 3.6 - 5.2 08/16/2018 [facility] mmol/L 8:51 AM CDT LABORATORIES - [facility] Sodium, S 141 135 - 145 08/16/2018 [facility] mmol/L 8:51 AM CDT LABORATORIES - [facility] Chloride, S 102 98 - 107 08/16/2018 [facility] mmol/L 8:51 AM CDT LAB[facility]ATORIES - [facility] Bicarbonate, S 23 22 - 29 08/16/2018 [facility] mmol/L 8:51 AM CDT LAB[facility]ATORIES - [facility] Anion Gap 16 (H) 7 - 15 08/16/2018 [facility] 8:51 AM CDT LAB[facility]ATORIES - [facility] BUN (Blood 16 8 - 24 08/16/2018 [facility] Urea mg/dL 8:51 AM CDT LABORATORIES - Nitrogen), S [facility] Creatinine, S 1.18 0.74 - 08/16/2018 [facility] 1.35 mg/dL 8:51 AM CDT LABORATORIES [facility] eGFR-Non 59 (L) >=60 08/16/2018 [facility] Black/ mL/min/BSA 8:51 AM CDT LABORATORIES - [facility] Comment: ----ADDITIONAL INFORMATION---- Estimated GFR calculated using the 2009 CKD_EPI creatinine equation. eGFR-Black/ 68 >=60 mL/min/BSA 08/16/2018 8:51 [facility] CDT LABORATORIES [facility] Comment: ----ADDITIONAL INFORMATION---- Estimated GFR calculated using the 2009 CKD_EPI creatinine equation. Calcium, Total, S 9.5 8.8 - 10.2 mg/dL 08/16/2018 8:51 AM [facility] CDT LABORATORIES [facility] S Glucose, S 100 70 - 140 mg/dL 08/16/2018 8:51 [facility] Specimen Anatomical Collection Method Collection Time Receive d Time (Source) Location / / Volume Laterality Blood (Blood, 08/16/2018 7:44 AM 08/17/19 19 8:16 Venous) CDT AM CDT Tom Johnson M.D., Ph.D. LAB BLOOD ADD-ON Performing Organization Address City/State/ZIP Code Phon e Number [facility] - [address] [place], [place] [address] [facility] CBC with Differential, Blood (08/16/2018 7:44 AM CDT) [facility] Method Time Signature Hemoglobin 15.2 13.2 - 08/16/2018 [facility] 16.6 g/dL 8:21 AM CDT [facility]ATORIES - [facility] Hematocrit 44.7 38.3 - 08/16/2018 [facility] 48.6 % 8:21 AM CDT [facility]ATORIES - [facility] Erythrocytes 4.99 4.35 - 08/16/2018 [facility] 5.65 8:21 AM CDT LABORATORIES - x10(12)/L [facility] MCV 89.6 78.2 - 08/16/2018 [facility] 97.9 fL 8:21 AM CDT [facility]ATORIES - [facility] RBC Distrib Width 14.1 11.8 - 08/16/2018 [facility] 14.5 % 8:21 AM CDT [facility] - [facility] Platelet Count 231 135 - 317 08/16/2018 [facility] x10(9)/L 8:21 AM CDT [facility]ATORIES - [facility] Leukocytes 8.1 3.4 - 9.6 08/16/2018 [facility] x10(9)/L 8:21 AM CDT [facility]ATORIES - [facility] Neutrophils 5.20 1.56 - 08/16/2018 [facility] 6.45 8:21 AM CDT LABORATORIES - x10(9)/L [facility] Lymphocytes 2.03 0.95 - 08/16/2018 [facility] 3.07 8:21 AM CDT LABORATORIES - x10(9)/L [facility] Monocytes 0.60 0.26 - 08/16/2018 [facility] 0.81 8:21 AM CDT LABORATORIES - x10(9)/L [facility] Eosinophils 0.20 0.03 - 08/16/2018 [facility] 0.48 8:21 AM CDT LABORATORIES - x10(9)/L [facility] Basophils 0.04 0.01 - 08/16/2018 [facility] 0.08 8:21 AM CDT LABORATORIES - x10(9)/L [facility] Specimen Anatomical Collection Method Collection Time Receive d Time (Source) Location / / Volume Laterality Blood (Blood, 08/16/2018 7:44 AM 08/17/19 19 8:16 Venous) CDT AM CDT Tom S Johnson M.D., Ph.D. LAB BLOOD ADD-ON Performing Organization Address City/[facility] Phon e Number [facility] LABORATORIES - [address] [place] [address] [facility] (ABNORMAL) Troponin T, 6H, 5th Gen (08/15/2018 12:37 PM CDT) Patholo gist Method Time Signature Troponin T, 6 433 (H) <=15 ng/L 08/15/2018 [facility] hr, 5th gen 1:09 PM CDT LAB[facility]ATORIES - [facility] Comment: Consider acute myocardial injur y 6H Delta 127 ng/L 08/15/2018 1:09 PM CDT [facility]IES - [place] 6H Delta Interp Changing 08/15/2018 1:09 PM CDT [facility] Comment: Evaluate for acute myocardial i njury Specimen Anatomical Collection Method Collection Time Receive d Time (Source) Location / / Volume Laterality Blood 08/15/2018 12:37 08/15/2018 PM CDT 12:43 PM CDT Darvin Corral M.D. LAB BLOOD TROPONIN Performing Organization Address [facility] Phon e Number [facility] LABORATORIES - [address] [place] [address] [facility] Heparin Anti-Xa Assay (08/15/2018 11:00 AM CDT) P athologist Signature Heparin 1.62 IU/mL 08/15/2018 [facility] Anti-Xa, P 12:53 PM CDT [facility] Comment: UFH therapeutic range: ?? 0.30-0.70 IU/mL [...] City/State/ZIP Code Phon e Number [facility] LABORATORIES - [address] [place], [place] [address] [facility] CORONARY ANGIOGRAPHY, STENT PLACEMENT, PERCUTANEOUS CORONARY ANGIOPLASTY [...] Code Phon e Number POC [facility]ST [facility] INPATIENT LABS [address] [facility] [place] [address] (ABNORMAL) ACT (Activated Clotting Time), POCT (08/15/2018 [...] City/State/ZIP Code Phon e Number POC RST [facility] INPATIENT LABS [address] [facility] [address] Bilirubin, Direct (08/15/2018 6:00 AM CDT) P athologist Signature Bilirubin, 0.2 0.0 - 0.3 08/15/2018 [facility] Direct, S mg/dL 8:25 AM CDT LABORATORIES - [facility] Specimen Anatomical Collection Method Collection Time Receive d Time (Source) Location / / Volume Laterality Blood (Blood, 08/15/2018 6:00 AM 08/16/19 19 6:20 Venous) CDT AM CDT Vaughn Rader M.D., Ph.D. LAB BLOOD ADD-ON Performing Organization Address City/State/ZIP Code Phon e Number [facility] LABORATORIES - [address] [place], [place] [address] [facility] (ABNORMAL) Comprehensive Metabolic Panel (08/15/2018 6:00 AM CDT) Analysis Performed At Patho logist Time Signature Potassium, S 4.5 3.6 - 5.2 08/15/2018 [facility] mmol/L 8:25 AM CDT LABORATORIES - [facility] Sodium, S 144 135 - 145 08/15/2018 [facility] mmol/L 8:25 AM CDT LAB[facility]ATORIES - [facility] Chloride, S 102 98 - 107 08/15/2018 [facility] mmol/L 8:25 AM CDT LAB[facility]ATORIES - [facility] Bicarbonate, S 24 22 - 29 08/15/2018 [facility] mmol/L 8:25 AM CDT LABORATORIES - [facility] Anion Gap 18 (H) 7 - 15 08/15/2018 [facility] 8:25 AM CDT LABORATORIES - [facility] BUN (Blood 14 8 - 24 08/15/2018 [facility] Urea mg/dL 8:25 AM CDT LABORATORIES - Nitrogen), S [facility] Creatinine, S 1.14 0.74 - 08/15/2018 [facility] 1.35 mg/dL 8:25 AM CDT LABORATORIES - [facility] eGFR-Non 62 >=60 08/15/2018 [facility] Black/ mL/min/BSA 8:25 AM CDT LABORATORIES - [place] [facility] Comment: ----ADDITIONAL INFORMATION---- Estimated GFR calculated using the 2009 CKD_EPI creatinine equation. eGFR-Black/ 71 >=60 mL/min/BSA 08/15/2018 8:25 [facility] CDT LABORATORIES [facility] Comment: ----ADDITIONAL INFORMATION---- Estimated GFR calculated using the 2009 CKD_EPI creatinine equation. Calcium, Total, S 9.6 8.8 - 10.2 08/15/2018 8:25 [facility] mg/dL AM CDT LABORATORIES - [facility] Glucose, S 102 70 - 140 08/15/2018 8:25 [facility] mg/dL AM CDT LABORATORIES [facility] Protein, Total, S 6.4 6.3 - 7.9 08/15/2018 8:25 [facility] g/dL AM CDT LABORATORIES [facility] Albumin, S 4.3 3.5 - 5.0 08/15/2018 8:25 [facility] g/dL AM CDT [facility] Aspartate 62 (H) 8 - 48 U/L 08/15/2018 8:25 [facility] Aminotransferase (AST), AM CDT LABORA TORIES - S [facility] Alkaline Phosphatase, S 142 (H) 40 - 129 U/L 08/15/2018 8: 25 [facility] AM CDT LABORATORIES [facility] Alanine Aminotransferase 25 7 - 55 U/L 08/15/2018 8:2 5 [facility] (ALT), S CDT [facility] Bilirubin, Total, S 1.2 <=1.2 mg/dL 08/15/2018 8:[address] [facility] CDT LABORATORIES [facility] Specimen Anatomical Collection Method Collection Time Receive d Time (Source) Location / / Volume Laterality Blood (Blood, 08/15/2018 6:00 AM 08/16/19 19 6:20 Venous) CDT AM CDT Vaughn Rader M.D., Ph.D. LAB BLOOD ADD-ON Performing Organization Address City/State/ZIP Code Phon e Number [facility] - [address] [place], [place] [address] [facility] (ABNORMAL) Troponin T, 2H/6H, 5th Gen (08/15/2018 6:00 AM CDT) [facility] Method Time Signature Troponin T, 2 366 (H) <=15 ng/L 08/15/2018 [facility] hr, 5th gen 6:38 AM CDT LABORATORIES - [facility] Comment: Consider acute myocardial injur y 2H Delta 60 ng/L 08/15/2018 6:38 AM CDT [facility] 2H Delta Interp Changing 08/15/2018 6:38 AM CDT [facility] Comment: Evaluate for acute myocardial i njury Troponin T, 6 hr, 5th CANCELED ng/L 08/15/2018 11: 23 AM [facility] gen CDT - [facility] Comment: Hemolyzed redraw requested Result canceled by the ancillary Specimen Anatomical Collection Method Collection Time Receive d Time (Source) Location / / Volume Laterality Blood (Blood, 08/15/2018 6:00 AM 08/16/19 6:07 Venous) CDT AM CDT Narrative [facility] - 08/15/2018 11:25 AM CDT Specimen Information: Specimen ID: [id number] Specimen Type: Blood Specimen Collection Start Date: 08/16/19 ??6:00 AM Specimen Received Date: 08/15/2018 ??6:0 7 AM Specimen ID: [id number] Specimen Type: Blood Specimen Collection Start Date: 08/16/19 11:00 AM Specimen Received Date: 08/15/2018 11:08 AM Vaughn Rader M.D., Ph.D. LAB BLOOD TROPONIN Performing Organization Address City/[facility] Phon e Number [facility] - [address] [place], [place] [address] [facility] (ABNORMAL) Troponin T, Baseline, 5th gen (08/15/2018 4:23 AM CDT) [facility] gist Method Time Signature Troponin T, 306 (H) <=15 ng/L 08/15/2018 [facility] Baseline, 5th 4:50 AM CDT LABORATORIES - [facility] Comment: Consider acute myocardial injur y Specimen Anatomical Collection Method Collection Time Receive d Time (Source) Location / / Volume Laterality Blood (Blood, 08/15/2018 4:23 AM 08/16/19 19 4:29 Venous) CDT AM CDT Vaughn Rader M.D., Ph.D. LAB BLOOD TROPONIN Performing Organization Address City/[facility] Code Phon e Number [facility] LABORATORIES - [address] [place], [place] [address] [facility] APTT (Activated Partial Thromboplastin Time) (08/15/2018 4:04 AM CDT) athologist Signature Activated 35 25 - 37 08/15/2018 [facility] Partial sec 4:48 AM CDT LABORATORIES - Thrombopl [facility] Specimen Anatomical Collection Method Collection Time Receive d Time (Source) Location / / Volume Laterality Blood (Blood, 08/15/2018 4:04 AM 08/16/19 4:38 Venous) CDT AM CDT Vaughn Rader M.D., Ph.D. LAB BLOOD ADD-ON Performing Organization Address City/State/ZIP Code Phon e Number [facility] LABORATORIES - [address] [place] [address] [facility] documented in this encounter Visit Diagnoses Diagnosis [...] with maintenance fluid. NaCl 0.9% infusion 0846 ([facility] Hold - Pro vider: Transfer Provider, Automatic - Reason: Patient not available)1048 ([facility] Unhold - Provider: Transfer Provider, Automatic) 10-250 [...] nitroglycerin SL tablet 0.4 mg (NITROSTAT) 0846 ([facility] Hold - Provider: Transfer Provider, Automatic - Reason: Patient not available)1048 ([facility] Unhold - Provider: Transfer Provider, Automatic) 0.4 [...]
--- OUTSIDE RECORDS SUMMARY | 2021-12-18 08:07 | XMS_ITS | Encounter Summary ---
:1940 Author Organization [facility] Address [address] [place] [address] Care Team Providers Name Role Phone Unavailable Primary Care Provider Unavailable Reason for Visit Reason Comments Nausea Pt presents with nausea, gen eralized weakness and new confusion per family. Encounter Details Date Type Department Care Team Description 08/14/2018 - Emergency [place] Edgar Dodson Non-ST Iraida vation 08/15/2018 Emergency Department Titi Nunez M.D. 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 Will give pt asa 324 mg [...] CDT) P athologist Signature Source Midstream 08/15/2018 [facility] 12:16 AM [employer] LAB Clarity Clear Clear 08/15/2018 [facility] 12:16 AM [facility] [employer] LAB Color Yellow 08/15/2018 [facility] 12:16 AM [employer] LAB Comment: ----REFERENCE VALUE---- Colorless Yellow Isabel Blood Negative Negative 08/15/2018 12:16 AM [facility] [employer] LAB Nitrite Negative Negative 08/15/2018 12:16 AM [facility] [employer] LAB Leukocyte Esterase Moderate (A) Negative 08/15/2018 12:1 6 AM [facility] [employer]ve [employer]T [employer] LAB Protein 30 (A) mg/dL 08/15/2018 12:16 AM [facility] Comment: ----REFERENCE VALUE---- Negative Trace Glucose Negative Negative mg/dL 08/15/2018 12:[address] [facility] LAB Ketones, QI(U) 15 (A) Negative mg/dL 08/15/2018 12:[address] [facility] LAB Bilirubin Negative Negative 08/15/2018 12:16 AM [facility] pH 6.0 5.0 - 8.0 08/15/2018 12:17 AM [facility] Specific Coggon 1.020 1.001 - 1.035 08/15/2018 12:[address] [facility] LAB Urobilinogen 0.2 0.2 - 1.0 mg/dL 08/15/2018 12:17 AM [facility] LAB White Blood Cells 21-30 (A) /hpf 08/15/2018 12:55 AM [facility] LAB Comment: ----REFERENCE VALUE---- Males: 0-3 Females: 0-10 Unknown: 0-10 Red Blood Cells 3-10 (A) 0 - 2 /hpf 08/15/2018 12:55 [facility] LINIC [facility] Dysmorphic Red Blood <=25 <=25 % 08/15/2018 12:55 [facility] Cells [facility] Hyaline Casts 1-3 /lpf 08/15/2018 12:55 [facility] CLIN IC [facility] Crystals Amorphous (A) None Seen 08/15/2018 12:55 [facility] CLIN IC /lpf [facility] Squamous Cells Occ-3 /hpf 08/15/2018 12:55 [facility] CLI ANKITA [facility] LAB Transitional Cells Occ-3 (A) None Seen 08/15/2018 12:55 [facility] /[facility] LAB Specimen (Source) Anatomical Collection Method Collection Time Re ceived Time Location / / Volume Laterality Urine (Urine, 08/15/2018 08/15/2018 12: 13 Clean Catch) [facility] Edgar Dodson Jr., M.D. LAB URINE ORDERABLES Performing Organization Address City/State/ZIP Code Phon e Number [facility]- [id number] [place] [address] [place] [facility] DX Chest Portable 1 View (08/14/2018 [...] Dodson Jr., M.D. IMG [facility]AGNOST[facility] CRP (C-Reactive Protein) (08/14/2018 10:34 PM CDT) athologist Signature C-Reactive 0.9 <=8.0 mg/L 08/14/2018 [facility] Protein (CRP), 11:05 PM CDT [facility] [place] [facility] Specimen Anatomical Collection Method Collection Time Receive d Time (Source) Location / / Volume Laterality Blood (Blood, 08/14/2018 10:34 08/14/2018 Venous) PM CDT 10:37 PM CDT Edgar Dodson Jr., M.D. LAB BLOOD ADD-ON Performing Organization Address City/State/ZIP Code Phon e Number [facility]- [address] [place] [address] [place] [address] [place] [facility] APTT (Activated Partial Thromboplastin Time) (08/14/2018 10:33 PM CDT) athologist Signature APTT, P 27.4 23.7 - 36.1 08/14/2018 [facility] sec 11:54 PM CDT [facility] LAB Specimen Anatomical Collection Method Collection Time Receive d Time (Source) Location / / Volume Laterality Blood (Blood, 08/14/2018 10:33 08/14/2018 Venous) PM CDT 11:45 PM CDT Edgar Dodson Jr., M.D. LAB BLOOD ADD-ON Performing Organization Address [facility] Phon e Number [address] [address] [place] [facility] Lipase (08/14/2018 10:33 PM CDT) athologist Signature Lipase, P 31 13 - 60 U/L 08/14/2018 [facility] 11:04 PM CDT [facility] LAB Specimen Anatomical Collection Method Collection Time Receive d Time (Source) Location / / Volume Laterality Blood (Blood, 08/14/2018 10:33 08/14/2018 Venous) PM CDT 10:37 PM CDT Edgar Dodson Jr., M.D. LAB BLOOD ADD-ON Performing Organization Address [facility] Phon e Number [address] [address] [place] [facility] Methylmalonic Acid (MMA), Quantitative (08/14/2018 10:33 PM CDT) [facility] gist Method Time Signature Methylmalonic 0.19 <=0.40 08/18/2018 [facility] Acid, QN, S nmol/mL 8:13 AM CDT LABORATORIES [facility] Comment: ----ADDITIONAL INFORMATION---- This test was developed and its performa nce characteristics determined by [facility] in a manner consistent with CLIA requirements. This test has not been cleared or approved by the [place] d and Drug Administration. Specimen Anatomical Collection Method Collection Time Receive d Time (Source) Location / / Volume Laterality Blood (Blood, 08/14/2018 10:33 08/16/2018 Venous) PM CDT 11:50 AM CDT Edgar Dodson Jr., M.D. LAB BLOOD ADD-ON Performing Organization Address [facility]/State/ZIP Code Phon e Number [facility] LABORATORIES - [address] [place], [place] [address] [facility] Vitamin B12 Assay (08/14/2018 10:33 PM CDT) athologist Signature Vitamin B12 [phone] 08/15/2018 [facility] Assay, S ng/L 2:49 PM CDT [facility] LAB Comment: Biotin has been identified by [...] M.D. LAB BLOOD ADD-ON Performing Organization Address City/[facility] Code Phon e Number [facility] [address] [facility] [address] [facility] LAB (ABNORMAL) Troponin T, 5th Generation (08/14/2018 10:33 PM CDT) athologist Signature Troponin T, 222 (H) <=15 ng/L 08/14/2018 [facility] 5th gen 10:56 PM CDT [facility] LAB Comment: Consider acute myocardial injury Biotin [...] Organization Address City/State/ZIP Code Phon e Number [address] [address] [place] [facility] Thyroid Function [place] (08/14/2018 10:33 PM CDT) athologist Signature TSH, Sensitive 1.9 0.3 - 4.2 08/14/2018 [facility] mIU/L 11:07 PM CDT [facility] LAB Comment: Biotin has been identified [...] M.D. LAB BLOOD ADD-ON Performing Organization Address City/State/[facility] Code Phon e Number [address] [address] [place] [facility] (ABNORMAL) Comprehensive Metabolic Panel (08/14/2018 10:33 PM CDT) athologist Signature Potassium, P 4.1 3.6 - 5.2 08/14/2018 [facility] mmol/L 11:04 PM CDT [facility] LAB Sodium, P 139 135 - 145 08/14/2018 [facility] mmol/L 11:04 PM CDT [facility] LAB Chloride, P 98 98 - 107 08/14/2018 [facility] mmol/L 11:04 PM CDT [facility] LAB Bicarbonate, P 26 22 - 29 08/14/2018 [facility] mmol/L 11:04 PM CDT [facility] LAB Anion Gap, P 15 7 - 15 08/14/2018 [facility] 11:04 PM CDT [facility] BUN (Blood Urea 15 8 - 24 08/14/2018 [facility] Nitrogen), P mg/dL 11:04 PM CDT [facility] LAB Creatinine, P 1.07 0.74 - 08/14/2018 [facility] 1.35 mg/dL 11:04 PM [facility] LAB eGFR-Black/Afri 77 >=60 08/14/2018 [facility] can Turkmen mL/min/BSA 11:04 [facility] Comment: ----ADDITIONAL INFORMATION---- Estimated GFR calculated using the 2009 CKD_EPI creatinine equation. eGFR Non-Black/ 67 >=60 mL/min/BSA 08/14/2018 11:04 PM [facility] Turkmen [facility] Comment: ----ADDITIONAL INFORMATION---- Estimated GFR calculated using the 2009 CKD_EPI creatinine equation. Calcium, Total, P 10.2 8.8 - 10.2 08/14/2018 11:04 PM [facility] mg/dL [facility] Glucose, P 120 70 - 140 mg/dL 08/14/2018 11:[address] [facility] LAB Protein, Total, P 8.0 (H) 6.3 - 7.9 g/dL 08/14/2018 11:[address] [facility] Albumin, P 4.9 3.5 - 5.0 g/dL 08/14/2018 11:[address] [facility] Aspartate 54 (H) 8 - 48 U/L 08/14/2018 11:04 PM [facility] IC Aminotransferase (AST), P [facility] Alkaline Phosphatase, P 173 (H) 40 - 129 U/L 08/14/2018 11 :[address] [facility] Alanine Aminotransferase 29 7 - 55 U/L 08/14/2018 11: 04 PM [facility] (ALT), P [facility] Bilirubin, Total, P 1.7 (H) <=1.2 mg/dL 08/14/2018 11:[address] [facility] LAB Specimen Anatomical Collection Method Collection Time Receive d Time (Source) Location / / Volume Laterality Blood (Blood, 08/14/2018 10:33 08/14/2018 Venous) PM CDT 10:37 PM CDT Edgar Dodson Jr., M.D. LAB BLOOD ADD-ON Performing Organization Address City/State/ZIP Code Phon e Number [facility]- [id number] [place] [address] [place] [facility] (ABNORMAL) CBC with Differential, Blood (08/14/2018 10:33 PM CDT) [facility] Method Time Signature Hemoglobin 15.8 13.2 - 08/14/2018 [facility] 16.6 g/dL 10:43 PM CDT [facility] Hematocrit 46.1 38.3 - 08/14/2018 [facility] 48.6 % 10:43 PM CDT [facility] LAB Erythrocytes 5.19 4.35 - 08/14/2018 [facility] 5.65 10:43 PM CDT HEALTH x10(12)/L [facility] LAB MCV 88.8 78.2 - 08/14/2018 [facility] 97.9 fL 10:43 PM CDT [facility] LAB RBC Distrib Width 13.8 11.8 - 08/14/2018 [facility] 14.5 % 10:43 PM CDT [facility] LAB Platelet Count 218 135 - 317 08/14/2018 [facility] x10(9)/L 10:43 PM CDT [facility] LAB Leukocytes 8.6 3.4 - 9.6 08/14/2018 [facility] x10(9)/L 10:43 PM CDT [facility] LAB Neutrophils 7.44 (H) 1.56 - 08/14/2018 [facility] 6.45 10:43 PM CDT HEALTH x10(9)/L [facility] LAB Lymphocytes 0.88 (L) 0.95 - 08/14/2018 [facility] 3.07 10:43 PM CDT HEALTH x10(9)/L [facility] LAB Monocytes 0.21 (L) 0.26 - 08/14/2018 [facility] 0.81 10:43 PM CDT HEALTH x10(9)/L [facility] LAB Eosinophils 0.02 (L) 0.03 - 08/14/2018 [facility] 0.48 10:43 PM CDT HEALTH x10(9)/L [facility] LAB Basophils 0.01 0.01 - 08/14/2018 [facility] 0.08 10:43 PM CDT HEALTH x10(9)/L [facility] LAB Specimen Anatomical Collection Method Collection Time Receive d Time (Source) Location / / Volume Laterality Blood (Blood, 08/14/2018 10:33 08/14/2018 Venous) PM CDT 10:37 PM CDT Edgar Dodson Jr., M.D. LAB BLOOD ADD-ON Performing Organization Address City/State/ZIP Code Phon e Number [facility]- [address] [facility] [address] [facility] [address] [place] [facility] [address] Head without IV Contrast (08/14/2018 [...] Signature Ventricular Rate 63 BPM MUSE ECG/Min [place] Interval 174 ms MUSE QRSD Interval 84 ms MUSE QT Interval 438 ms MUSE QTC Interval 448 ms MUSE P [place] 47 degrees MUSE R [place] -2 degrees MUSE T Wave [place] 54 degrees MUSE Specimen Anatomical Collection Method [...] - Provider: Katia Virk R.N. - Comment: [id number]) 0-40 Units/kg/hr ? 66.1 kg Dosing weight [...]
--- OUTSIDE RECORDS SUMMARY | 2021-12-18 08:08 | XMS_ITS | Encounter Summary ---
:1940 [address] [facility] Address [address] [place] [address] Care Team Providers Name Role Phone Unavailable Primary Care Provider Unavailable Encounter Details Date Type Department Care Team Description 07/07/2017 Hospital Encounter [facility] Raymundo Muniz[address] [place] [address] [place], [place] [address] [place], [place] [phone] [address] (Wo rk) Social History Tobacco Use Types Packs/Day Years Used Date Smoking Tobacco: Former Smokeless Tobacco: Never Alcohol Use Standard Drinks/Week Comments No 0 (1 standard drink = 0.6 oz pure alcoho l) Sex Assigned at Date Recorded Not on file documented as of this encounter Last Filed Vital Signs Vital Sign Reading Time Taken Comments Blood Pressure 110/77 07/07/2017 9:27 AM CONTRACT AGENT Pulse 59 07/07/2017 9:27 AM CONTRACT AGENT Temperature 36.4 ??C (97.5 ??F) 07/07/2017 8:47 AM CONTRACT AGENT Respiratory Rate 16 07/07/2017 8:47 AM CONTRACT AGENT Oxygen Saturation 95% 07/07/2017 9:27 AM CONTRACT AGENT Inhaled Oxygen Concentration - - Weight - [...] tartrate 0 06/23/201708/15 (for_LOPRESSOR) 25 mg tablet edocrifmgsot-ileibubr-pp Take 1 tablet by 0 06/2508/15/2018 rrous [...] ophthalmic suspension documented as of this encounter H&P Notes [...] Implant Name Type Inv. Item Serial No. Surveillance Analyst Lot No. LRB No. Used Action TENCNIS IOL Ocular Lens [id number] Ann [id number] Right 1 Implanted Raymundo Muniz M.D. PREOPERATIVE [...] The nucleus was grooved centrally and deeply [id number] degrees and cracked in half. Each nuclear [...] at 1 day postop. Raymundo Muniz M.D. 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 documented in this encounter Administered Medications Inactive Administered Medications - up to 3 most recent administrations Medication Order MAR Action Action Date Dose Rate Site brimonidine 0.2 % ophthalmic Given 07/07/2017 9:31 AM CONTRACT AGENT 1 drop Right Eye solution 1 drop (for_ALPHAGAN) 1 drop, right eye, 2 times daily, First dose on Fri07/07/17 at 0930 cyclopentolate-phenylephrine 0.125-1.25 % Given 07/07/2017 7:25 AM CONTRACT AGENT 1 drop ophthalmic solution 1 drop (for_DILATING DROPS) 1 drop, right eye, Once, On Fri07/07/17 at 0715, For 1 dose, Pre-Op, Apply over cornea in operative eye, towards superior fornix and towards inferior fornix. Apply at least 30 minutes prior to case tetracaine (PF) 0.5 % ophthalmic Given 07/07/2017 8:59 AM CONTRACT AGENT 1 drop Right Eye solution 1 drop (for_ALTACAINE) 1 drop, right eye, Every 5 min, First dose on Fri07/07/17 at 0715, For 4 doses, Pre-Op, in operative eye Given 07/07/2017 7:21 AM CONTRACT AGENT 1 drop Given 07/07/2017 7:18 AM CONTRACT AGENT 1 drop documented in this encounter Active and Recently Administered Medications Times are shown in CONTRACT AGENT. Scheduled Medication Order 07/05/2017 07/06/2017 07/07/2017 brimonidine [...] (CANCELED ) 0832 (Given - Provider: Raymundo Munzi M.D.) As needed, Starting on Fri07/07/17 at [...]
--- OUTSIDE RECORDS SUMMARY | 2021-12-18 08:08 | XMS_ITS | Encounter Summary ---
:1940 Author Organization [facility] Address [address] [place] [address] Care Team Providers Name Role Phone Unavailable Primary Care Provider Unavailable Encounter Details Date Type Department Care Team Description 07/21/2017 Hospital Encounter [facility] Raymundo Muniz, [address] [place], [place] [address]VD [place], [place] [address] [place], [place] [address] [place], [place] [phone] [phone] (Wo rk) Social History Tobacco Use [...] documented in this encounter Discharge Instructions Discharge Sihra Aldana R.N. - 07/17/2017 3:19 PM CDT Images from the original note were not included. [facility] Cataract/Trabeculectomy Discharge Instructions, Eye Care [...] (Month DD, YYYY) Time (hh:mm) Ophthalmology at [facility] Phone Numbers: Office: [phone] Toll Free: [phone] ext. [phone] ??2016 [facility] Medical Education and Research Page 1 of 2 [id number] When you leave the hospital after your [...] tartrate 0 06/23/201708/15 (for_LOPRESSOR) 25 mg tablet jxgodwkqqzmh-vneiyyol-es Take 1 tablet by 0 06/2508/15/2018 rrous [...] Raymundo Muniz M.D. - 07/07/2017 9:35 AM FERTILIZER SUPERVISOR History of present illness: The patient is [...] Implant Name Type Inv. Item Serial No. Artistic Associate Lot No. LRB No. Used Action [id number] Ocular Lens [id number] Ann Left 1 Implanted Raymundo Muniz M.D. [...]
--- OUTSIDE RECORDS SUMMARY | 2021-12-18 08:08 | XMS_ITS | Encounter Summary ---
:1940 Author Organization [facility] Address [address] [place] [address] Care Team Providers Name Role Phone Unavailable Primary Care Provider Unavailable Encounter Details Date Type Department Care Team Description 07/21/2017 Anesthesia Event [facility] MAIN OR Cr Britt, ED, RENTAL REPRESENTATIVE [address] Jax Stoner, ED, RENTAL REPRESENTATIVE, [place] [address] Anesthesia Record Procedure Summary Procedure Name Responsible Anesthesia Start Anesthesia Stop Anesthesiologist Time Time EXTRACTION CATARACT Cr Britt APRN, 07/21/17 0901 0 07/21/17 0926 WITH INSERTION RENTAL REPRESENTATIVE INTRAOCULAR LENS (Left) Events Date Time Event [...] h andoff to the receiving staff during [facility] ch we 1. Identified the patient [...] Procedure Summary Date: 07/21/17 Room / Location: [address] 2-220 / [facility] OR Anesthesia Start: 900 Anesthesia Stop: 925 [...] status: euvolemic Anesthesia Preprocedure Evaluation - Jax Stoner APRN, CRNA - 07/10/2017 11:48 AM CST Anesthesia Pre-Evaluation Review of Systems and Problem List PROBLEM LIST Relevant Problems (+) Polymyalgia Rheumatica (HCC) [place] '12 TIA GERD Lt Vocal Cord Paralysis [...] patient / legal guardian, or through an certified court interpreter; patient evaluated and approved for anesthesia / [...]
--- OUTSIDE RECORDS SUMMARY | 2021-12-18 08:08 | XMS_ITS | Encounter Summary ---
:1940 Author Organization [facility] Address [address] [place] [address] Care Team Providers Name Role Phone Unavailable Primary Care Provider Unavailable Encounter Details Date Type Department Care Team Description 04/07/2015 Hospital Encounter [facility] Rodger Miranda M.D. [address] [place], [place] [phone] (Wo rk) Social History [...] Duenas M.D. - 04/07/2015 8:32 AM CST [id number] CHIEF COMPLAINT/REASON FOR VISIT Follow up right [...] DUENAS MD On: 04/07/2015 12:30 PM Source: [facility] [email or web address] Document Id: [id number] DOCTORAL RESEARCH FELLOW documented in this encounter Miscellaneous Notes Miscellaneous - Marv Duenas M.D. - 04/07/2015 8:57 AM CST Ambulatory Patient Summary [facility] [address], [address] [place] [id number] Visit Information Name: RYLEY VINES [facility] Number: [id number] Current Date: 04/07/2015 08:57:05 Physicians [...] if you dont have one. Go to [email or web address] and click on Create Your Account. Then, follow the directions to complete the online form. Youll be asked for your [facility] number which you can find at the top of this document. Your Goals/Additional instructions: Source: [facility] POWERCHART Document Id: [id number] DOCTORAL RESEARCH FELLOW Miscellaneous - Marv Duenas M.D. - 04/07/2015 8:57 AM CST Ambulatory Discharge Medication List [facility] [address], [address] [place], [place] [phone] Visit Information Name: RYLEY VINES [facility] Number: [id number] Visit Date: 04/07/2015 08:57:04 Attending [...] MD Signed On:07-APR-2015 08:56:51 Additional Information: Source: [facility] POWERCHART Document Id: [id number] DOCTORAL RESEARCH FELLOW Miscellaneous - Brodie Nielsen, L.P.N. - 04/07/2015 8:43 AM CST Adult Crime Scene Specialist Intake/History Adult Crime Scene Specialist Intake/History Entered On: 04/07/2015 8:43 POSTDOCTORAL RESEARCH FELLOW Performed On: 04/07/2015 8:43 POSTDOCTORAL RESEARCH FELLOW by BRODIE NIELSEN LPN Intake Chief Complaint : po rigfht shoulder BRODIE NIELSEN LPN - 04/07/2015 8:43 POSTDOCTORAL RESEARCH FELLOW General Info Information Given By : Patient Languages : Divehi Is Patient Female and 13-50 no hysterectomy : No BRODIE NIELSEN LPN - 04/07/2015 8:43 POSTDOCTORAL RESEARCH FELLOW Subjective Pain Symptoms : No BRODIE NIELSEN LPN - 04/07/2015 8:43 POSTDOCTORAL RESEARCH FELLOW Dependent Habits Exposure to Tobacco Smoke : Other: former Smoking Status : Former smoker Tobacco 2A : Yes Tobacco Use/Currently Using : No Tobacco Use/Last 30 Days : No Tobacco Use/Last 12 months : No BRODIE NIELSEN LPN - 04/07/2015 8:43 POSTDOCTORAL RESEARCH FELLOW Caffeine Use Grid Caffeine Use : Current Type : Coffee Frequency : Daily BRODIE NIELSEN LPN - 04/07/2015 8:43 POSTDOCTORAL RESEARCH FELLOW Source: [employer] Document Id: [id number] POSTDOCTORAL RESEARCH FELLOW!21 DOCTORAL RESEARCH FELLOW documented in this encounter Plan of Treatment Not on filedocumented as of this encounter Visit Diagnoses Not on filedocumented in this encounter Additional Health Concerns Assessment Noted Time PHQ-9 Depression Total Score: 2 03/08/2015 11:16 AM CS T documented as of this encounter
--- OUTSIDE RECORDS SUMMARY | 2021-12-18 08:08 | XMS_ITS | Encounter Summary ---
:1940 Author Organization [facility] Address [address] [place] [address] Care Team Providers Name Role Phone Unavailable Primary Care Provider Unavailable Encounter Details Date Type Department Care Team Description 11/12/2017 Clinical Communication Department of Raymundo Muniz Ophthalmology in Fabricio Soares M.D. [address] [place] [phone] Social History Tobacco Use Types Packs/Day Years [...]
--- OUTSIDE RECORDS SUMMARY | 2021-12-18 08:08 | XMS_ITS | Encounter Summary ---
:1940 Author Organization [facility] Address [address] [place] [address] Care Team Providers Name Role Phone Unavailable Primary Care Provider Unavailable Encounter Details Date Type Department Care Team Description 08/08/2017 Abstract Department of Family Medicine, Provider, Historical [facility], in [place], [place] [address] [place] [address] Social History Tobacco Use Types Packs/Day [...]
--- OUTSIDE RECORDS SUMMARY | 2021-12-18 08:08 | XMS_ITS | Encounter Summary ---
:1940 Author Organization [facility] Address [address] [place] [address] Care Team Providers Name Role Phone Unavailable Primary Care Provider Unavailable Encounter Details Date Type Department Care Team Description 06/30/2017 Ancillary Department of Flavio, Cataract Senil e Nuclear Sclerosis Right (Primary Dx); Procedure Ophthalmology in [facility] Raymundo Soares M.D. Cataract Senile Nuclear Sclerosis Left [address] [place] [phone] Social History Tobacco Use [...] esults for this BIOMETRY (OCB) - OU ANATOMIC PATHOLOGY MANAGER Nuclear Sclerosis pro cedure are in - BOTH EYES Right the results Cataract Senile section. Nuclear Sclerosis Left CORNEAL TOPOGRAPHY - Routine 06/30/2017 11:15 AM Cataract Eugenia le Results for this OU - BOTH EYES ANATOMIC PATHOLOGY MANAGER Nuclear Sclerosis procedur e are in Right the results Cataract Senile section. Nuclear Sclerosis Left documented in this encounter Results Ocular Coherence Biometry (OCB) - OU - Both Eyes (06/30/2017 11:17 AM ANATOMIC PATHOLOGY MANAGER) Specimen (Source) Anatomical Location Collection Method / Collectio n Time Received Time / Laterality Volume Raymundo Paz M.D. - 08/15/2017 9: 49 AM CDT MODALITY Right Eye The modality was IOL Master. Left Eye The modality was IOL Master. IOL MEASUREMENTS Right Eye IOL Measurements: Axial length was 24.11 mm. K-1 was 42.48 diopters. K1 [place] was 112.00 degrees. K-2 was 43.43. K2 [place] was 22.00 degrees. WTW was 11.80 mm. ACD was 2.59 mm. Lens thicknes s was 5.43 mm. Left Eye IOL Measurements: Axial length was 23.66 mm. K-1 was 42.90 diopters. K1 [place] was 74.00 degrees. K-2 was 43.60. K 2 [place] was 164.00 degrees. WTW was 11.90 mm. ACD was 2.67 mm. Lens thicknes s was 5.22 mm. Raymundo Muniz M.D. OPHTH PHOTOGRAPHY Corneal Topography - OU - Both Eyes (06/30/2017 11:15 AM ANATOMIC PATHOLOGY MANAGER) Specimen (Source) Anatomical Location Collection Method / [...]
--- OUTSIDE RECORDS SUMMARY | 2021-12-18 08:08 | XMS_ITS | Encounter Summary ---
:1940 Author Organization [facility] Address [address] [place] [address] Care Team Providers Name Role Phone Unavailable Primary Care Provider Unavailable Encounter Details Date Type Department Care Team Description 05/22/2017 Abstract Department of Family Medicine, Provider, Historical [facility], in [place], [place] [address] [place] [address] Social History Tobacco Use Types Packs/Day [...]
--- OUTSIDE RECORDS SUMMARY | 2021-12-18 08:08 | XMS_ITS | Encounter Summary ---
:1940 Author Organization [facility] Address [address] [place] [address] Care Team Providers Name Role Phone Unavailable Primary Care Provider Unavailable Encounter Details Date Type Department Care Team Description 06/25/2016 Hospital Encounter [facility] FAMILY MD Tea Givens M.D. [address] [place] [phone] (Wo rk) Social History Tobacco Use Types Packs/Day Years Used Date Smoking Tobacco: Former Sex Assigned at Date Recorded Not on file documented as of this encounter Last Filed Vital Signs Vital Sign Reading Time Taken Comments Blood Pressure 114/89 06/25/2016 8:20 AM ELEMENTARY SCHOOL ART TEACHER Pulse 56 06/25/2016 8:20 AM ELEMENTARY SCHOOL ART TEACHER Temperature - - Respiratory Rate 16 06/25/2016 8:20 AM ELEMENTARY SCHOOL ART TEACHER Oxygen Saturation - - Inhaled Oxygen Concentration - - Weight 69 kg (152 lb 1.9 oz) 06/25/2016 8:20 AM ELEMENTARY SCHOOL ART TEACHER Height 168 cm (5' 6.14) 06/25/2016 8:20 AM ELEMENTARY SCHOOL ART TEACHER Body Mass Index 24.45 06/25/2016 8:20 AM ELEMENTARY SCHOOL ART TEACHER documented in this encounter Medications at Time [...] suggests that it was the tartrate formulation. xovnzkqidroj-bdcikctv-pvx Take 1 tablet by 0 06/0608/15/2018 ifrha gluconate mouth daily. (MULTIVITAMIN WITH MINERALS) 9 [...] Colon, polyp, benign Coronary Artery Disease (CAD) [place] Diverticulosis of Colon (Without Mention of [...] Ordered: OV Est Pt Level 4 - 84953 - 25 min 2. Screening Cancer Colon Referral for colonoscopy. Ordered: OV Est Pt Level 4 - 28973 - 25 min 3. Coronary Artery Disease (CAD) [place] V[place] Continue current medications and treatments. Pros/cons/side effects/alternatives and complications reviewed in detail. He is intolerant of statins. Ordered: nitroglycerin, 0.4 mg = 1 tab(s), SL, q5min, PRN Chest Pain, # 25 tab(s), 11 Refill(s), Maintenance, Pharmacy: [facility] EKG Notify Nurse - EKG Ordered OV Est Pt Level 4 - 69228 - 25 min 4. Elevated Blood Pressure Continue current medications and treatments. Pros/cons/side effects/alternatives and complications reviewed in detail. Ordered: CBC without Diff Comprehensive Metabolic Panel Lipid Panel* OV Est Pt Level 4 - 36933 - 25 min Urinalysis with Microscopic if Indicated 5. Vitamin D Deficiency Continue current medications and treatments. Pros/cons/side effects/alternatives and complications reviewed in detail. Ordered: 25-Hydroxyvitamin D2 and D3-Lynn 25HDN OV Est Pt Level 4 - 73607 - 25 min Orders: Schedule Procedure Colonoscopy Electronically Signed By: TEA GIVENS MD On: 06/25/2016 09:04 AM Source: [facility] POWERCHART Document Id: [id number] ENTARY SCHOOL ART TEACHER documented in this encounter Miscellaneous Notes Telephone Encounter - Conversion, Historical Provider Ser - 07/01/2016 2:20 PM CST *Phone Message Document Contains Addenda Addendum by EVERTON GARCIA LPN on July 01, 2016 14:35:52 ELEMENTARY SCHOOL ART TEACHER Patient aware of results and wanted to discuss lab results. From: HARDIK ONEIL ([facility] Automatic Engraver) To: [facility] Nurse Rodrick; Sent: 07/01/2016 14:20:26 ELEMENTARY SCHOOL ART TEACHER Subject: *Phone Message Caller is: ( x ) Patient ( ) Mother ( ) Father ( ) Spouse ( ) Daughter ( ) Son ( ) Pharmacy ( ) Other: Physician: Chon Patient MRN #: Reason for Call: Patient would like to talk about his ultrasound results from today with Dr. Givens.He wants a call back at [phone] Message: Advice/Action: Source used: ( ) Verbalizes [...] back cell phone number ( ) Source: [facility] POWERCHART Document Id: [id number] Miscellaneous - Tea Givens M.D. - 06/27/2016 7:47 PM CST Normal Results Letter June 27, 2016 RYLEY VINES [address] [place] [address] [id number] Dear RYLEY VINES, I am pleased to [...] 03/24/2015 150 - 450 Sincerely, TEA GIVENS [address] [address] Electronic Signature Electronically Signed By: TEA GIVENS MD On: June 27, 2016 This document has images extracted. Source: [facility] POWERCHART Document Id: [id number] Electronically signed by [facility]yl [facility] Shopper Marketing Manager [id number] at 10/15/2016 1:01 AM CDT Miscellaneous - Tea Givens M.D. - 06/27/2016 7:44 PM CST Addendum by WOJCIECH ELDRIDGE LPN on June 28, 2016 10:39:27 ELEMENTARY SCHOOL ART TEACHER Left a detailed message with the below information. From: TEA GIVENS MD To: [facility] Nurse Rodrick; Sent: 06/27/2016 19:44:44 ELEMENTARY SCHOOL ART TEACHER Call, Labs look good, except his liver enzymes are elevated. I recommend US of the liver to evaluatethis further. He shouldn't worry about this much, as there are a lot of reasons for elevated liver enzymes. I put an order for US of the liver. Source: [facility] POWERCHART Document Id: [id number] Electronically signed by Conversion, [facility] Shopper Marketing Manager [id number] at 10/15/2016 1:01 AM CDT Miscellaneous - Tea Givens M.D. - 06/25/2016 8:59 AM CST Ambulatory Patient Summary [address] [place] [id number] Visit Information Name: RYLEY VINES [facility] Number: [id number] Current Date: 06/25/2016 08:59:16 Physicians [...] needed for Chest Pain New Routed to [address] [place] [address] omeprazole (Prilosec 20 mg oral delayed release [...] of Hemorrhage) Active Coronary Artery Disease (CAD) [place] Active Your Upcoming Appointments Date Time [...] if you dont have one. Go to [email or web address] and click on Create Your Account. Then, follow the directions to complete the online form. Youll be asked for your [facility] number which you can find at the top of this document. Your Goals/Additional instructions: Source: [facility] POWERCHART Document Id: [id number] ENTARY SCHOOL ART TEACHER Miscellaneous - Tea Givens M.D. - 06/25/2016 8:59 AM CST Ambulatory Discharge Medication List [address] [place] [id number] Visit Information Name: RYLEY VINES [facility] Number: [id number] Current Date: 06/25/2016 08:59:15 Attending [...] needed for Chest Pain New Routed to [address] [place] [address] omeprazole (Prilosec 20 mg oral delayed release [...] MD Signed On:25-JUN-2016 08:59:12 Additional Information: Source: [facility] POWERCHART Document Id: [id number] ENTARY SCHOOL ART TEACHER Miscellaneous - Everton Garcia L.P.N. - 06/25/2016 8:20 AM CST Adult Dispatch Associate Intake/History Adult Dispatch Associate Intake/History Entered On: 06/25/2016 8:25 ELEMENTARY SCHOOL ART TEACHER Performed On: 06/25/2016 8:20 ELEMENTARY SCHOOL ART TEACHER by EVERTON GARCIA LPN Intake Chief Complaint [...] kg/m2 EVERTON GARCIA LPN - 06/25/2016 8:20 ELEMENTARY SCHOOL ART TEACHER General Info Information Given By : Patient Languages : Occitan Is Patient Female and 13-50 no hysterectomy : No EVERTON GARCIA LPN - 06/25/2016 8:20 ELEMENTARY SCHOOL ART TEACHER Subjective Pain Symptoms : No EVERTON GARCIA LPN - 06/25/2016 8:20 ELEMENTARY SCHOOL ART TEACHER Dependent Habits Exposure to Tobacco Smoke : Other: former Smoking Status : Former smoker Tobacco 2A : Yes Tobacco Use/Currently Using : No Tobacco Use/Last 30 Days : No Tobacco Use/Last 12 months : No EVERTON GARCIA LPN - 06/25/2016 8:20 ELEMENTARY SCHOOL ART TEACHER Caffeine Use Grid Caffeine Use : Current Type : Coffee Frequency : Daily EVERTON GARCIA LPN - 06/25/2016 8:20 ELEMENTARY SCHOOL ART TEACHER Source: [facility] POWERCHART Document Id: [id number] ELEMENTARY SCHOOL ART TEACHER!35 ENTARY SCHOOL ART TEACHER documented in this encounter Plan of Treatment Not on filedocumented as of this encounter Procedures Procedure Name Priority Date/Time Associated Comments Diagnosis URINALYSIS, ROUTINE Routine 06/25/2016 9:35 AM Re sults for this ELEMENTARY SCHOOL ART TEACHER procedure are i n the results section. URINE MICROSCOPIC Routine 06/25/2016 9:35 AM Resu lts for this ELEMENTARY SCHOOL ART TEACHER procedure are i n the results section. LIPID PANEL, S Routine 06/25/2016 9:09 AM Results for this ELEMENTARY SCHOOL ART TEACHER procedure are i n the results section. 25-HYDROXYVITAMIN D2 Routine 06/25/2016 9:09 AM R esults for this AND D3, S ELEMENTARY SCHOOL ART TEACHER procedure are i n the results section. CBC WITHOUT Routine 06/25/2016 9:09 AM Results f or this DIFFERENTIAL, B ELEMENTARY SCHOOL ART TEACHER procedure ar e in the results section. COMPREHENSIVE Routine 06/25/2016 9:09 AM Results for this METABOLIC PANEL, S/P ELEMENTARY SCHOOL ART TEACHER procedu re are in the results section. ECG Routine 06/25/2016 9:01 AM Results f or this ELEMENTARY SCHOOL ART TEACHER procedure are i n the results section. documented in this encounter Results Urine Microscopic (06/25/2016 9:35 AM ELEMENTARY SCHOOL ART TEACHER) athologist Signature HXUR WBC. Occ-3 HPF POWERCHART HXUR RBC. Occ-2 HPF POWERCHART Squamous Occ-3 HPF POWERCHART Epithelial Specimen Anatomical Collection Method Collection Time Receive d Time (Source) Location / / Volume Laterality Urine, First 06/25/2016 9:35 AM 7 9:35 Voided ELEMENTARY SCHOOL ART TEACHER AM ELEMENTARY SCHOOL ART TEACHER Tea Givens M.D. LAB URINE ORDERABLES Performing Organization Address City/State/ZIP Code Phon e Number POWERCHART (ABNORMAL) Urinalysis, Routine (06/25/2016 9:35 AM ELEMENTARY SCHOOL ART TEACHER) athologist Signature Clarity Clear Clear POWERCHART HXUr Color Yellow Colorless POWERCHART Specific 1.015 POWERCHART Miller, POCT, U Comment: Reference Range Specific Miller: 1.000-1.035 pH, POCT, Urine 5.5 <5.0 POWERCHART [...] Laterality Urine, First 06/25/2016 9:35 AM Voided ELEMENTARY SCHOOL ART TEACHER Tea Givens M.D. LAB URINE ORDERABLES Performing Organization Address City/State/ZIP Code Phon e Number POWERCHART CBC without Differential (06/25/2016 9:09 AM ELEMENTARY SCHOOL ART TEACHER) P athologist Signature Leukocytes 6.6 3.5 - 10.5 POWERCHART X109L Erythrocytes 5.09 4.32 - 5.72 POWERCHART Y2466V Hemoglobin 15.4 13.5 - 17.5 POWERCHART GDL Hematocrit 46.4 38.8 - 50.0 POWERCHART MCV 91.2 81.2 - 95.1 POWERCHART FL HX RDW 14.1 11.8 - 15.6 POWERCHART Platelet Count 208 150 - 450 POWERCHART X109L Specimen (Source) Anatomical Collection Method Collection Time Re ceived Time Location / / Volume Laterality Blood 06/25/2016 9:09 AM ELEMENTARY SCHOOL ART TEACHER Tea Givens M.D. LAB BLOOD ADD-ON Performing Organization Address City/State/ZIP Code Phon e Number POWERCHART Lipid Panel (06/25/2016 9:09 AM ELEMENTARY SCHOOL ART TEACHER) P athologist Signature Cholesterol, 176 <=199 MGDL [...] for FH and FDB is available bell [facility]: FH/ADH Genetic Reflex Mcmahan [...] at or the on-line test catalog at [employer] for information about how to order these rachael ts or to speak with a genetic counselor. Further interpretation would require clinical information. Total Cholesterol/HDL Ratio 3 PO WERCHART Specimen (Source) Anatomical Collection Method Collection Time Re ceived Time Location / / Volume Laterality Blood 06/25/2016 9:09 AM ELEMENTARY SCHOOL ART TEACHER Tea Givens M.D. LAB BLOOD ADD-ON Performing Organization Address City/State/ZIP Code Phon e Number POWERCHART (ABNORMAL) CMP (Comprehensive Metabolic Panel) (06/25/2016 9:09 AM ELEMENTARY SCHOOL ART TEACHER) [facility] gist Method Time Signature Alanine 67 [...] POWERCHART MMOLL HXeGFR (MDRD) >60 >=60 POWERCHART CCATT089G 2 eGFR Black/ >60 >=60 POWERCHART Burmese [id number] 2 Bilirubin, Total, S 1.2 <=1.2 POWERCHART MGDL Total Protein, S 7.6 6.3 - 7.9 POWERCHART GDL Glucose 109 70 - 139 POWERCHART MGDL Specimen (Source) Anatomical Collection Method Collection Time Re ceived Time Location / / Volume Laterality Blood 06/25/2016 9:09 AM ELEMENTARY SCHOOL ART TEACHER Tea Givens M.D. LAB BLOOD ADD-ON Performing Organization Address City/State/ZIP Code Phon e Number POWERCHART 25-Hydroxyvitamin D2 and D3 (06/25/2016 9:09 AM ELEMENTARY SCHOOL ART TEACHER) athologist Signature HX25 HYDROXY D2 <4.0 NGML [...] and its performa nce characteristics determined by [facility] in a manner co nsistent with CLIA requirements. This test has not been jeremias ared or approved by the U.S. Food and Drug Administration. Test Performed by: [place] [address] Maintenance Electrician: Coy Sherwood II, M.D., Ph.D. Specimen (Source) Anatomical Collection Method Collection Time Re ceived Time Location / / Volume Laterality Blood 06/25/2016 9:09 AM ELEMENTARY SCHOOL ART TEACHER Tea Givens M.D. LAB BLOOD ADD-ON Performing Organization Address City/State/ZIP Code Phon e Number POWERCHART ECG 12 Lead (06/25/2016 9:01 AM ELEMENTARY SCHOOL ART TEACHER) Specimen (Source) Anatomical Collection Method Collection Time Re ceived Time Location / / Volume Laterality 06/25/2016 9:01 AM ELEMENTARY SCHOOL ART TEACHER [facility] - 06/25/2016 9:01 AM ELEMENTARY SCHOOL ART TEACHER Test Reason : PREOP, CAD Blood Pressure [...] Organization Address City/State/ZIP Code Phon e Number [facility] [address] [place] [phone] documented in this encounter Visit Diagnoses Not on filedocumented in this encounter Additional Health Concerns Assessment Noted Time PHQ-9 Depression Total Score: 2 03/08/2015 11:16 AM CS T documented as of this encounter
--- OUTSIDE RECORDS SUMMARY | 2021-12-18 08:08 | XMS_ITS | Encounter Summary ---
:1940 Author Organization [facility] Address [address] [place] [address] Care Team Providers Name Role Phone Unavailable Primary Care Provider Unavailable Encounter Details Date Type Department Care Team Description 06/30/2017 Ancillary Procedure Department of Raymundo Muniz Ophthalmology in Fabricio Soares M.D[address] [phone] Social History Tobacco Use Types [...] esults for this BIOMETRY (OCB) - OU WINE SALES REPRESENTATIVE Nuclear Sclerosis pro cedure are in - BOTH EYES Right the results Cataract Senile section. Nuclear Sclerosis Left documented in this encounter Results Ocular Coherence Biometry (OCB) - OU - Both Eyes (06/30/2017 11:17 AM WINE SALES REPRESENTATIVE) Specimen (Source) Anatomical Location Collection Method / Collectio n Time Received Time / Laterality Volume Narrative Raymundo Muniz M.D. - 08/15/2017 9: 49 AM CDT MODALITY Right Eye The modality was IOL Master. Left Eye The modality was IOL Master. IOL MEASUREMENTS Right Eye IOL Measurements: Axial length was 24.11 mm. K-1 was 42.48 diopters. K1 [place] was 112.00 degrees. K-2 was 43.43. K2 [place] was 22.00 degrees. WTW was 11.80 mm. ACD was 2.59 mm. Lens thicknes s was 5.43 mm. Left Eye IOL Measurements: Axial length was 23.66 mm. K-1 was 42.90 diopters. K1 [place] was 74.00 degrees. K-2 was 43.60. K 2 [place] was 164.00 degrees. WTW was 11.90 mm. ACD was 2.67 mm. Lens thicknes s was 5.22 mm. Raymundo Muniz M.D. OPHTH PHOTOGRAPHY documented in this encounter Visit Diagnoses Not on filedocumented in this encounter Additional Health Concerns Assessment Noted Time PHQ-9 Depression Total Score: 2 03/08/2015 11:16 AM CS T documented as of this encounter
--- OUTSIDE RECORDS SUMMARY | 2021-12-18 08:08 | XMS_ITS | Encounter Summary ---
:1940 Author Organization [facility] Address [address] [place] [address] Care Team Providers Name Role Phone Unavailable Primary Care Provider Unavailable Reason for Visit Outpatient (Routine) - Closed Specialty Diagnoses / Procedures Referred By Contact Refer red To Contact Diagnoses Cataract Senile Nuclear Sclerosis Right Raymundo Muniz M.D. [address] [phone] Referral ID Status Reason Start Date Expiration Date Visits Requ ested Visits Authorized [id number] Closed 05/01/2017 10/28/2017 1 1 Encounter Details Date Type Department Care Team Description 06/30/2017 Nurse Only Department of General Sandro Muniz M.D. [address] [place] [phone] Surgery in [facility] Gena Quinn, RSelvin [address] [place] [phone] [phone] Social History Tobacco Use Types Packs/Day [...] a SARI visit on 06/30/17. Surgery Nurse Civil Estimator Anesthesia Risk Assessment: Do you have difficulties lying flat? no Comment: Do you have an implanted cardiac device?no. Teaching: Preoperative education was done with (x) patient () other: It was confirmed the patient/family member had received the following preoperative education sheets: It was confirmed the patient/family member had received the following preoperative education sheets: Preparing for Your Surgery ([id number]),Surgical Site Infections ([id number]), Speak Up: Antibiotics ([id number]), Smoke Free, Advice for patients and visitors ([id number]), Managing Your Pain ([id number]) with the [employer] pamphlet ([id number]), Cataract Surgery: Required Appointments and Instructions ([id number]), and Financial Information for the Surgical Patient ([id number]), Preparing for Cataract Surgery Instructions ([id number]). These were reviewed in detail. The patient was instructed to bring the cataract eye kit and their eye drops the day of surgery. In addition, the patient was educated on lifting restrictions of 20 pounds for first week after surgery,using rhym-ttf-[id number] artificial tears for scratchy dry eyes and [...] appointments: 1st po with surgeon or physician retail event assistant: Dr. Miranda's office [employer] documented in this encounter Plan of Treatment Not on filedocumented as of this encounter Visit Diagnoses Diagnosis Preanesthetic Medical Exam - Primary Cataract Senile Nuclear Sclerosis Right documented in this encounter Additional Health Concerns Assessment Noted Time PHQ-9 Depression Total Score: 2 03/08/2015 11:16 AM CS T documented as of this encounter
--- OUTSIDE RECORDS SUMMARY | 2021-12-18 08:08 | XMS_ITS | Encounter Summary ---
:1940 Author Organization [facility] Address [address] [place] [address] Care Team Providers Name Role Phone Unavailable [...]
--- OUTSIDE RECORDS SUMMARY | 2021-12-18 08:08 | XMS_ITS | Encounter Summary ---
:1940 Author Organization [facility] Address [address] [place] [address] Care Team Providers Name Role Phone Unavailable Primary Care Provider Unavailable Reason for Visit Reason Comments Communication Encounter Details Date Type Department Care Team Description 06/27/2017 Clinical Communication Department of Mike Montelongo, Communication Medicine, [place] [address] [address] [place], [place] [phone] (Work) [phone] Social History Tobacco Use Types Packs/Day Years Used Date Smoking Tobacco: Former Smokeless Tobacco: Never Alcohol Use Standard Drinks/Week Comments No 0 (1 standard drink = 0.6 oz pure alcoho l) Sex Assigned at Date Recorded Not on file documented as of this encounter Miscellaneous Notes Telephone Encounter - Melinda Meadows R.N. - 06/27/2017 3:14 PM URBAN FORESTER Returned call to [place]. Ophthalmology had not contacted him and he said that he was not sure who it was. I reviewed his appointment times with him for Friday here in [place] and he verbalized understanding. N FORESTER Telephone Encounter - Juliette Wong - 06/27/2017 12:33 PM CST Patient returning a phone call, there were no messages to alert where to send the call. Patient is having surgery and has questions about that. Patient can be reached at [phone] N FORESTER documented in this encounter Plan of Treatment Not on filedocumented as of this encounter Visit Diagnoses Not on filedocumented in this encounter Additional Health Concerns Assessment Noted Time PHQ-9 Depression Total Score: 2 03/08/2015 11:16 AM CS T documented as of this encounter
--- OUTSIDE RECORDS SUMMARY | 2021-12-18 08:08 | XMS_ITS | Encounter Summary ---
:1940 Author Organization [facility] Address [address] [place] [address] Care Team Providers Name Role Phone Unavailable Primary Care Provider Unavailable Encounter Details Date Type Department Care Team Description 06/30/2017 Ancillary Procedure Department of Raymundo Muniz Ophthalmology in Fabricio Soares M.D[address] [phone] Social History Tobacco Use Types [...] Results for this OU - BOTH EYES ELIGIBILITY SPECIALIST Nuclear Sclerosis procedur e are in Right the results Cataract Senile section. Nuclear Sclerosis Left documented in this encounter Results Corneal Topography - OU - Both Eyes (06/30/2017 11:15 AM ELIGIBILITY SPECIALIST) Specimen (Source) Anatomical Location Collection Method / [...]
--- OUTSIDE RECORDS SUMMARY | 2021-12-18 08:08 | XMS_ITS | Encounter Summary ---
:1940 Author Organization [facility] Address [address] [place] [address] Care Team Providers Name Role Phone Unavailable Primary Care Provider Unavailable Encounter Details Date Type Department Care Team Description 02/16/2016 Hospital Encounter HX [facility] Rodger Miranda M.D. [address] [place], [place] [phone] (Wo rk) Social History [...] Duenas M.D. - 02/16/2016 8:29 AM CDT [id number] CHIEF COMPLAINT/REASON FOR VISIT Follow up status [...] DUENAS MD On: 02/19/2016 07:40 AM Source: [facility] MHSDOLBEYNONRADSYS Document Id: [id number] documented in this encounter Miscellaneous Notes Miscellaneous - Marv Duenas M.D. - 02/16/2016 9:19 AM CDT Ambulatory Patient Summary [facility] [address], [address] [place] [phone] Visit Information Name: RYLEY VINES [facility] Number: [id number] Current Date: 02/16/2016 09:19:18 Physicians [...] if you dont have one. Go to [email or web address] and click on Create Your Account. Then, follow the directions to complete the online form. Youll be asked for your [facility] number which you can find at the top of this document. Your Goals/Additional instructions: Source: [facility] POWERCHART Document Id: [id number] Miscellaneous - Marv Duenas M.D. - 02/16/2016 9:19 AM CDT Ambulatory Discharge Medication List [facility] [address], [address] [place], [place] [id number] Visit Information Name: RYLEY VINES [facility] Number: [id number] Current Date: 02/16/2016 09:19:18 Attending [...] MD Signed On:16-FEB-2016 09:19:16 Additional Information: Source: [facility] POWERCHART Document Id: [id number] Miscellaneous - Colleen Sarabia L.P.N. - 02/16/2016 8:46 AM CDT Adult Pilot Boat Operator Intake/History Adult Pilot Boat Operator Intake/History Entered On: 02/16/2016 8:47 CDT Performed On: 02/16/2016 8:46 CDT by COLLEEN SARABIA LPN Intake Chief Complaint : Pt here for frc on rgiht TSA COLLEEN SARABIA LPN - 02/16/2016 8:46 CDT General Info Information Given By : Patient Languages : [place] Islander Is Patient Female and 13-50 no hysterectomy [...] SARABIA LPN - 02/16/2016 8:46 CDT Source: [employer] Document Id: [id number] CDT!21 documented in this encounter Plan of Treatment Not on filedocumented as of this encounter Visit Diagnoses Not on filedocumented in this encounter Additional Health Concerns Assessment Noted Time PHQ-9 Depression Total Score: 2 03/08/2015 11:16 AM CS T documented as of this encounter
--- OUTSIDE RECORDS SUMMARY | 2021-12-18 08:08 | XMS_ITS | Encounter Summary ---
:1940 Author Organization [facility] Address [address] [place] [address] Care Team Providers Name Role Phone Unavailable Primary Care Provider Unavailable Encounter Details Date Type Department Care Team Description 07/07/2017 Surgery [facility] NEIL OR Raymundo Muniz, EXTRACTION CATARACT [address] [place] [address] BLVD M.DLara WITH INSERTION [place], [place] [address] INTRAOCULAR LENS [address] [place], [place] [phone] (Wo rk) Social History Tobacco Use Types Packs/Day Years Used Date Smoking Tobacco: Former Smokeless Tobacco: Never Alcohol Use Standard Drinks/Week Comments No 0 (1 standard drink = 0.6 oz pure alcoho l) Sex Assigned at Date Recorded Not on file documented as of this encounter Last Filed Vital Signs Vital Sign Reading Time Taken Comments Blood Pressure 121/81 07/07/2017 9:00 AM INTERNAL AUDIT SENIOR MANAGER Pulse 58 07/07/2017 9:00 AM INTERNAL AUDIT SENIOR MANAGER Temperature 36.4 ??C (97.5 ??F) 07/07/2017 8:47 AM INTERNAL AUDIT SENIOR MANAGER Respiratory Rate 16 07/07/2017 8:47 AM INTERNAL AUDIT SENIOR MANAGER Oxygen Saturation 94% 07/07/2017 9:00 AM INTERNAL AUDIT SENIOR MANAGER Inhaled Oxygen Concentration - - Weight - [...] tartrate 0 06/23/201708/15 (for_LOPRESSOR) 25 mg tablet qddnaogxctut-wqngwpkq-bz Take 1 tablet by 0 06/2508/15/2018 rrous [...] Implant Name Type Inv. Item Serial No. Creative Manager Lot No. LRB No. Used Action TENCNIS IOL Ocular Lens [id number] [place] [id number] Right 1 Implanted Raymundo Muniz M.D. PREOPERATIVE [...] The nucleus was grooved centrally and deeply oodzneg43 degrees and cracked in half. Each nuclear [...] at 1 day postop. Raymundo Muniz M.D. 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 documented in this encounter Administered Medications Inactive Administered Medications - up to 3 most recent administrations Medication Order MAR Action Action Date Dose Rate Site balanced salt solution ophthalmic Given 07/07/2017 8:32 AM INTERNAL AUDIT SENIOR MANAGER 1 5 mL irrigation (for_BSS) As needed, [...] injection (for_ZI NACEF) Given 07/07/2017 8:32 AM INTERNAL AUDIT SENIOR MANAGER 1 mg As needed, Starting on Fri07/07/17 at 0832, Intra-Op cyclopentolate-phenylephrine 0.125-1.25 % Given 07/07/2017 7:25 AM INTERNAL AUDIT SENIOR MANAGER 1 drop ophthalmic solution 1 drop (for_DILATING DROPS) 1 drop, right eye, Once, On Fri07/07/17 at 0715, For 1 dose, Pre-Op, Apply over cornea in operative eye, towards superior fornix and towards inferior fornix. Apply at least 30 minutes prior to case EPINEPHrine 0.3 mg in balanced salt solution Given 09/2017 8:32 AM INTERNAL AUDIT SENIOR MANAGER 500 mL plus 500 mL ophthalmic irrigation As needed, Starting on Fri07/07/17 at 0832, Intra-Op povidone-iodine 5 % ophthalmic solution Given 07/07/2017 8:32 AM INTERNAL AUDIT SENIOR MANAGER 30 mL (for_BETADINE) As needed, Starting on Fri07/07/17 at 0832, Intra-Op tetracaine (PF) 0.5 % ophthalmic solution Given 07/07/2017 8:32 AM INTERNAL AUDIT SENIOR MANAGER 1 drop (for_ALTACAINE) As needed, Starting on Fri07/07/17 at 0832, Intra-Op tetracaine (PF) 0.5 % ophthalmic Given 07/07/2017 8:59 AM INTERNAL AUDIT SENIOR MANAGER 1 drop Right Eye solution 1 drop (for_ALTACAINE) 1 drop, right eye, Every 5 min, First dose on Fri07/07/17 at 0715, For 4 doses, Pre-Op, in operative eye Given 07/07/2017 7:21 AM INTERNAL AUDIT SENIOR MANAGER 1 drop Given 07/07/2017 7:18 AM INTERNAL AUDIT SENIOR MANAGER 1 drop documented in this encounter Active and Recently Administered Medications Times are shown in INTERNAL AUDIT SENIOR MANAGER. Scheduled Medication Order 07/05/2017 07/06/2017 07/07/2017 brimonidine [...]
--- OUTSIDE RECORDS SUMMARY | 2021-12-18 08:08 | XMS_ITS | Encounter Summary ---
:[address] [facility] Address [address] [place] [address] Care Team Providers Name Role Phone Unavailable Primary Care Provider Unavailable Encounter Details Date Type Department Care Team Description 08/01/2017 Abstract Department of Family Medicine, Provider, Historical [facility], in [place], [place] [address] [place] [address] Social History Tobacco Use Types Packs/Day [...]
--- OUTSIDE RECORDS SUMMARY | 2021-12-18 08:08 | XMS_ITS | Encounter Summary ---
:1940 Author Organization [facility] Address [address] [place] [address] Care Team Providers Name Role Phone Unavailable Primary Care Provider Unavailable Encounter Details Date Type Department Care Team Description 04/11/2017 Abstract Department of Family Medicine, Provider, Historical [facility], in [place], [place] [address] [place] [address] [facility] [phone] Social History Tobacco Use Types Packs/Day Years [...]
--- OUTSIDE RECORDS SUMMARY | 2021-12-18 08:08 | XMS_ITS | Encounter Summary ---
:1940 Author Organization [facility] Address [address] [place] [address] Care Team Providers Name Role Phone Unavailable Primary Care Provider Unavailable Encounter Details Date Type Department Care Team Description 11/21/2017 Hospital Encounter Department [facility] [place] [facility] [address] [place] [address] [address] [address] [place], [place] [phone] (Work) [phone] Social History Tobacco Use Types Packs/Day Years [...] tartrate 0 06/23/201708/15 (for_LOPRESSOR) 25 mg tablet lwigedolhbte-grldlbwb-vg Take 1 tablet by 0 06/2508/15/2018 rrous [...] BMD BONE DENSITY SPINE HIPS COMPARISON: None. 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 FINDINGS: ?? LUMBAR SPINE L1-L4 included unless [...] BMD BONE DENSITY SPINE HIPS COMPARISON: None. 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 FINDINGS: LUMBAR SPINE L1-L4 included unless otherwise [...]
--- OUTSIDE RECORDS SUMMARY | 2021-12-18 08:08 | XMS_ITS | Encounter Summary ---
:[address] [facility] Address [address] [place] [address] Care Team Providers Name Role Phone Unavailable Primary Care Provider Unavailable Encounter Details Date Type Department Care Team Description 07/01/2016 Hospital Encounter HX [facility] Tea Bethea M.D. [address] [place] [phone] (Wo rk) Social History Tobacco Use Types [...] suggests that it was the tartrate formulation. pcdsprmxxnmd-isydptbe-zux Take 1 tablet by 0 02/2 05/2016 [...] Historical Provider Ser - 07/01/2016 11:59 PM DESTATICIZER FEEDER Coding Summary-Paper Based CODING DATE: 07/04/2016 FINAL [place] [facility] STATUS: * Discharged to Home [...] DAY Date Saved: 07/04/2016 01:09 pm Source: [facility] [employer] Document Id: [id number] Miscellaneous - Tea Givens M.D. - 07/01/2016 1:52 PM CST From: TEA GIVENS MD To: [place] Family Medicine Nurse [place]; Sent: 07/01/2016 13:52:31 DESTATICIZER FEEDER Call, His ultrasound shows diffuse fatty liver (hepatic steatosis). To prevent this from progressingto a more significant disease state, he should eat a lower carb diet. Source: [facility] [employer] Document Id: [id number] Electronically signed by Conversion, [facility] Account Development Specialist [id number] at 10/15/2016 1:01 AM CDT documented in this encounter Plan of Treatment Not on filedocumented as of this encounter Visit Diagnoses Not on filedocumented in this encounter Additional Health Concerns Assessment Noted Time PHQ-9 Depression Total Score: 2 03/08/2015 11:16 AM CS T documented as of this encounter
--- OUTSIDE RECORDS SUMMARY | 2021-12-18 08:08 | XMS_ITS | Encounter Summary ---
:1940 Author Organization [facility] Address [address] [place] [address] Care Team Providers Name Role Phone Unavailable Primary Care Provider Unavailable Reason for Visit Reason Comments Communication Encounter Details Date Type Department Care Team Description 06/30/2017 Clinical Communication Department of Gena Quinn mmunication Ophthalmology in Fabricio Matthews R.N. [place], [place] [address] [facility] [address] [place] [phone] Social History Tobacco Use Types Packs/Day Years Used Date Smoking Tobacco: Former Smokeless Tobacco: Never Alcohol Use Standard Drinks/Week Comments No 0 (1 standard drink = 0.6 oz pure alcoho l) Sex Assigned at Date Recorded Not on file documented as of this encounter Miscellaneous Notes Telephone Encounter - Tammy Maria C.O.A. - 06/30/2017 2:36 PM CST Ketorolac was sent to the pharmacy GER PAYER Telephone Encounter - Gena Quinn R.N. - 06/30/2017 11:37 AM CST Patient is scheduled for cataract surgery 3/5/18, but he did not receive his Diclofenac. Please callkwame Etienne in [place]. GER PAYER documented in this encounter Plan of Treatment Not on filedocumented as of this encounter Visit Diagnoses Not on filedocumented in this encounter Additional Health Concerns Assessment Noted Time PHQ-9 Depression Total Score: 2 03/08/2015 11:16 AM CS T documented as of this encounter
--- OUTSIDE RECORDS SUMMARY | 2021-12-18 08:08 | XMS_ITS | Encounter Summary ---
:1940 Author Organization [facility] Address [address] [place] [address] Care Team Providers Name Role Phone Unavailable Primary Care Provider Unavailable Encounter Details Date Type Department Care Team Description 07/07/2017 Anesthesia Event [facility] MAIN OR La Nena Ochoa, ED, BUILD AND RELEASE MANAGER, DNAP [address] [place] [address] Jax Stoner, ED, BUILD AND RELEASE MANAGER, [place] [phone] Anesthesia Record Procedure Summary Procedure Name Responsible Anesthesia Start Anesthesia Stop Anesthesiologist Time Time EXTRACTION CATARACT La Nena Ochoa, 07/07/17 0823 07/07 0847 WITH INSERTION POSTING CLERK, BUILD AND RELEASE MANAGER, DNAP INTRAOCULAR LENS (Right) Events Date [...] h andoff to the receiving staff during [facility] we 1. Identified the patient 2. [...] Procedure Summary Date: 07/07/17 Room / Location: [place] [address] CAC [id number] / [facility]F OR Anesthesia Start: 822 Anesthesia Stop: [...] Post Op nausea/vomiting: none Hydration status: euvolemic OLOGY MANAGER Anesthesia Preprocedure Evaluation - La Nena Ochoa [...] patient / legal guardian, or through an branch service leader; patient evaluated and approved for anesthesia / sedation. The use of blood products not discussed MAC, minimal sedation Patient identified, chart reviewed, anesthetic plan discussed with patient, patient agrees with plan. OLOGY MANAGER documented in this encounter Plan of Treatment Not on filedocumented as of this encounter Visit Diagnoses Not on filedocumented in this encounter Administered Medications Inactive Administered Medications - up to 3 most recent administrations Medication Order MAR Action Action Date Dose Rate Site fentaNYL injection (for_SUBLIMAZE) Given 07/07/2017 8:26 AM METROLOGY MANAGER 25 mcg intravenous, As needed, severe pain or score 7-10 of 10, Starting on Fri07/07/17 at 0826, Anesthesia Intra-op midazolam (PF) injection (for_VERSED) Given 07/07/2017 8:26 AM METROLOGY MANAGER 1 mg As needed, Starting on Fri07/07/17 at 0826, Anesthesia Intra-op documented in this encounter Additional Health Concerns Assessment Noted Time PHQ-9 Depression Total Score: 2 03/08/2015 11:16 AM CS T documented as of this encounter
--- OUTSIDE RECORDS SUMMARY | 2021-12-18 08:08 | XMS_ITS | Encounter Summary ---
:1940 Author Organization [facility] Address [address] [place] [address] Care Team Providers Name Role Phone Unavailable Primary Care Provider Unavailable Reason for Visit Reason Comments Nausea Pt states he had onset of br ief chest pain and some nausea at 0600 this am denies pain on admission Encounter Details Date Type Department Care Team Description 04/01/2017 Emergency [facility] Bharath Myers, Nausea And Vomiting (Primary Dx); Department M.D. [address] [place], [place] [id number] Social History Tobacco Use Types Packs/Day Years Used Date Smoking Tobacco: Former Smokeless Tobacco: Never Sex Assigned at Date Recorded Not on file documented as of this encounter Last Filed Vital Signs Vital Sign Reading Time Taken Comments Blood Pressure 118/68 04/01/2017 1:30 PM ACCOUNTING OFFICER Pulse 74 04/01/2017 1:30 PM ACCOUNTING OFFICER Temperature 37 ??C (98.6 ??F) 04/01/2017 1:39 PM ACCOUNTING OFFICER Respiratory Rate - - Oxygen Saturation 92% 04/01/2017 1:30 PM ACCOUNTING OFFICER Inhaled Oxygen Concentration - - Weight 69.2 kg (152 lb 8.9 oz) 04/01/2017 1:45 PM ACCOUNTING OFFICER Height - - Body Mass Index 24.52 06/25/2016 8:20 AM ACCOUNTING OFFICER documented in this encounter Discharge Instructions Discharge InstructionsBharath Myers M.D. - 04/01/2017 2:49 PM CST Please reseek care if you develop persistent vomiting and diarrhea and inability to tolerate oral intake. Please also seek care if you develop chest pain, shortness of breath, or persistent lightheadedness. UNTING OFFICER AttachmentsThe following attachments cannot be sent through Care Everywhere. Nausea and Vomiting, Adult (Zambian)Diarrhea, Adult, Bblx-bh-Ucgw (Zambian) documented in this encounter Medications at Time [...] suggests that it was the tartrate formulation. izdpsbhikziv-irxmccon-cdz Take 1 tablet by 0 06/0608/15/2018 ifrah [...] strength in upper and lower extremities. Normal vfns-ua-dcna, ttaeev-rp-zoon, and rapid alternating movements. Normal gait. Skin: [...] this does not feel like his prior [place]. EKG shows evidence of possible inferior infarct [...] arrhythmogenic right ventricular dysplasia, Brugada syndrome, HOCM, Xbvkf-Cuqygdvmx-Ghyos or QTC prolongation. 1501 Chest X-ray is [...] 04/01/17 1513 Bharath Myers M.D. 04/01/17 1613 UNTING OFFICER documented in this encounter Plan of Treatment Not on filedocumented as of this encounter Procedures Procedure Name Priority Date/Time Associated Comments Diagnosis DX CHEST AP OR PA RAD - Semiurgent 04/01/2017 1:27 Res ults for this AND LATERAL 2 (Fast; most ED PM ACCOUNTING OFFICER procedure ar e in VIEWS patients; some the results inpatients) section. HEPATIC FUNCTION STAT 04/01/2017 1:18 Results for this PANEL, S PM ACCOUNTING OFFICER procedure are i n the results section. CBC WITH STAT 04/01/2017 1:18 Results for this DIFFERENTIAL, B PM ACCOUNTING OFFICER procedure ar e in the results section. TROPONIN T, 5TH STAT 04/01/2017 1:18 Results f or this GEN, P PM ACCOUNTING OFFICER procedure are i n the results section. LIPASE, S/P STAT 04/01/2017 1:18 Results for this PM ACCOUNTING OFFICER procedure are i n the results section. LACTATE, B/P STAT 04/01/2017 1:18 Results for this PM ACCOUNTING OFFICER procedure are i n the results section. BASIC METABOLIC STAT 04/01/2017 1:18 Results f or this PANEL, S/P PM ACCOUNTING OFFICER procedure are i n the results section. ECG STAT 04/01/2017 1:01 Results for this PM ACCOUNTING OFFICER procedure are i n the results section. documented in this encounter Results DX Chest AP or PA and Lateral 2 Views (04/01/2017 1:27 PM ACCOUNTING OFFICER) Anatomical Region Laterality Modality Chest N/A Digital Radiography Specimen (Source) Anatomical Collection Method Collection Time Re ceived Time Location / / Volume Laterality 04/01/2017 1:42 PM ACCOUNTING OFFICER Impressions 04/01/2017 1:43 PM ACCOUNTING OFFICER IMPRESSION: Cardiac silhouette is not enlarged. No pneumothorax. No lung infiltrate. Right shoulder arthroplasty. Narrative 04/01/2017 1:43 PM ACCOUNTING OFFICER EXAM: DX CHEST AP OR PA AND [...] PROCE PONCHO Troponin T (04/01/2017 1:18 PM ACCOUNTING OFFICER) athologist Signature Troponin T, S <0.01 <0.01 ng/mL 04/01/2017 [facility] 1:56 PM ACCOUNTING OFFICER [facility] Comment: Biotin has been identified by the [place] as a potential interfering substance. ??Higher concentr ations of biotin may be found in multivitamins, hair/nail supple ments, and workout supplements. ??If the result does not ma [facility] clinical observations, repeat testing after patient refrains fr om the use of supplements for at least 12 hours. Specimen Anatomical Collection Method Collection Time Receive d Time (Source) Location / / Volume Laterality Blood (Blood, 04/01/2017 1:18 PM 04/01/20 17 1:20 Venous) ACCOUNTING OFFICER PM ACCOUNTING OFFICER Bharath Myers M.D. LAB BLOOD ADD-ON Performing Organization Address City/[facility] Phon e Number [address] [address] [facility] Lipase (04/01/2017 1:18 PM ACCOUNTING OFFICER) athologist [facility] Lipase, S 21 13 - 60 U/L 04/01/2017 [facility] 1:56 PM [facility] Specimen Anatomical Collection Method Collection Time Receive d Time (Source) Location / / Volume Laterality Blood (Blood, 04/01/2017 1:18 PM 04/01/20 17 1:21 Venous) ACCOUNTING OFFICER PM ACCOUNTING OFFICER Bharath Myers M.D. LAB BLOOD ADD-ON Performing Organization Address [facility] Phon e Number [address] [phone] [facility] Lactate (04/01/2017 1:18 PM ACCOUNTING OFFICER) athologist Signature Lactate, P 2.0 0.6 - 2.3 04/01/2017 [facility] mmol/L 1:36 PM ACCOUNTING OFFICER [facility] Specimen Anatomical Collection Method Collection Time Receive d Time (Source) Location / / Volume Laterality Blood (Blood, 04/01/2017 1:18 PM 04/01/20 17 1:21 Venous) ACCOUNTING OFFICER PM ACCOUNTING OFFICER Bharath Myers M.D. LAB BLOOD NON ADD-ON Performing Organization Address City/State/ZIP Code Phon e Number [facility] [address] [place] [phone] [facility] (ABNORMAL) Hepatic Function Panel (04/01/2017 1:18 PM ACCOUNTING OFFICER) Patholo gist Method Time Signature Bilirubin, Total, S 1.4 (H) <=1.2 04/01/2017 [facility] mg/dL 1:56 PM [facility] Bilirubin, Direct, S 0.2 0.0 - 0.3 04/01/2017 [facility] mg/dL 1:56 PM [facility] Aspartate 45 8 - 48 04/01/2017 [facility] Aminotransferase U/L 1:57 PM [facility] Alanine 53 7 - 55 04/01/2017 [facility] Aminotransferase U/L 1:56 PM [facility] Alkaline 160 (H) 45 - 115 04/01/2017 [facility] Phosphatase, S U/L 1:56 PM [facility] Albumin, S 4.2 3.5 - 5.0 04/01/2017 [facility] g/dL 1:56 PM [facility] Protein, Total, S 6.7 6.3 - 7.9 04/01/2017 [facility] g/dL 1:56 PM [facility] Specimen Anatomical Collection Method Collection Time Receive d Time (Source) Location / / Volume Laterality Blood (Blood, 04/01/2017 1:18 PM 04/01/20 17 1:21 Venous) ACCOUNTING OFFICER PM ACCOUNTING OFFICER Bharath Myers M.D. LAB BLOOD ADD-ON Performing Organization Address City/State/ZIP Code Phon e Number [facility]- [address] [place] [phone] [facility] BMP (Basic Metabolic Panel) (04/01/2017 1:18 PM ACCOUNTING OFFICER) P athologist Signature Potassium, S 4.2 3.6 - 5.2 04/01/2017 [facility] mmol/L 1:[address] [facility] Sodium, S 143 135 - 145 04/01/2017 [facility] mmol/L 1:56 PM [facility] Chloride, S 102 98 - 107 04/01/2017 [facility] mmol/L 1:56 PM [facility] Bicarbonate, S 27 22 - 29 04/01/2017 [facility] mmol/L 1:56 PM [facility] Anion Gap 14 7 - 15 04/01/2017 [facility] 1:56 PM [facility] BUN (Blood Urea 9 8 - 24 04/01/2017 [facility] Nitrogen), S mg/dL 1:56 PM [facility] Creatinine, S 0.99 0.74 - 04/01/2017 [facility] 1.35 mg/dL 1:56 PM [facility] eGFR 74 >=60 04/01/2017 [facility] Non-Black/Afric mL/min/BSA 1:56 PM [facility] EM- an [place] [facility] Comment: ----ADDITIONAL INFORMATION---- Estimated GFR calculated using the 2009 CKD_EPI creatinine equation. eGFR-Black/ 85 >=60 mL/min/BSA 2016 1:56 PM [facility] Comment: ----ADDITIONAL INFORMATION---- Estimated GFR calculated using the 2009 CKD_EPI creatinine equation. Calcium, Total, S 9.5 8.9 - 10.1 mg/dL 04/01/2017 1 :56 PM [facility] Glucose, S 123 70 - 140 mg/dL 04/01/2017 1:56 PM [facility] Specimen Anatomical Collection Method Collection Time Receive d Time (Source) Location / / Volume Laterality Blood (Blood, 04/01/2017 1:18 PM 04/01/20 17 1:21 Venous) ACCOUNTING OFFICER ACCOUNTING OFFICER Bharath Myers M.D. LAB BLOOD ADD-ON Performing Organization Address City/State/ZIP Code Phon e Number [facility]- [id number] [address] [facility] (ABNORMAL) CBC with Differential (04/01/2017 1:18 PM ACCOUNTING OFFICER) [facility] Method Time Signature Hemoglobin 14.9 13.2 - 04/01/2017 [facility] 16.6 g/dL 1:28 PM [facility] Hematocrit 44.5 38.3 - 04/01/2017 [facility] 48.6 % 1:28 PM [facility] Erythrocytes 4.88 4.35 - 04/01/2017 [facility] 5.65 1:28 PM ACCOUNTING OFFICER HEALTH x10(12)/L SYSTEM- [facility] MCV 91.2 78.2 - 04/01/2017 [facility] 97.9 fL 1:28 PM [facility] RBC Distrib Width 13.6 11.8 - 04/01/2017 [facility] 14.5 % 1:28 PM [facility] Platelet Count 198 135 - 317 04/01/2017 [facility] x10(9)/L 1:28 PM [facility] Leukocytes 16.2 (H) 3.4 - 9.6 04/01/2017 [facility] x10(9)/L 1:28 PM [facility] Neutrophils 14.73 (H) 1.56 - 04/01/2017 [facility] 6.45 1:28 PM [facility] HEALTH x10(9)/L SYSTEM- [facility] Lymphocytes 0.91 (L) 0.95 - 04/01/2017 [facility] 3.07 1:28 PM ACCOUNTING OFFICER HEALTH x10(9)/L SYSTEM- [facility] Monocytes 0.54 0.26 - 04/01/2017 [facility] 0.81 1:28 PM ACCOUNTING OFFICER HEALTH x10(9)/L SYSTEM- [facility] Eosinophils 0.01 (L) 0.03 - 04/01/2017 [facility] 0.48 1:28 PM ACCOUNTING OFFICER HEALTH x10(9)/L SYSTEM- [facility] Basophils 0.02 0.01 - 04/01/2017 [facility] 0.08 1:28 PM [facility] x10(9)/L [facility] [facility] Specimen Anatomical Collection Method Collection Time Receive d Time (Source) Location / / Volume Laterality Blood (Blood, 04/01/2017 1:18 PM 04/01/20 17 1:20 Venous) ACCOUNTING OFFICER PM ACCOUNTING OFFICER Bharath Myers M.D. LAB BLOOD ADD-ON Performing Organization Address City/State/ZIP Code Phon e Number [facility]- [address] [place] [phone] [facility] ECG 12 Lead (04/01/2017 1:01 PM ACCOUNTING OFFICER) Patholo gist Method Time Signature Ventricular 78 BPM MUSE Rate ECG/Min PA Interval 178 ms MUSE QRSD Interval 82 ms MUSE QT Interval 376 ms MUSE QTC Interval 428 ms MUSE P Elizabeth 39 degrees MUSE R Elizabeth -12 degrees MUSE T Wave Elizabeth 20 degrees MUSE Clinical Normal sinus rhythm MUSE Diagnosis Cannot rule out Inferior infarct When compared with ECG of 25-JUN-2016 09:01, Vent. rate has increased BY ??29 BPM Minimal criteria for Inferior infarct are now present Specimen Anatomical Collection Method Collection Time Receive d Time (Source) Location / / Volume Laterality 04/01/2017 1:01 PM 7 1:11 ACCOUNTING OFFICER PM ACCOUNTING OFFICER Narrative This result has an attachment that [...] 1,000 mL New Bag 04/01/2017 1:32 PM ACCOUNTING OFFICER 1,000 mL 1,000 mL, intravenous, Once, On 04/01/17 at 1325, For 1 dose documented in this encounter Active and Recently Administered Medications Times are shown in ACCOUNTING OFFICER. Scheduled Medication Order 03/30/2017 03/31/2017 04/01/2017 NaCl [...]
--- OUTSIDE RECORDS SUMMARY | 2021-12-18 08:08 | XMS_ITS | Encounter Summary ---
:1940 Author Organization [facility] Address [address] [place] [address] Care Team Providers Name Role Phone Unavailable Primary Care Provider Unavailable Encounter Details Date Type Department Care Team Description 07/10/2016 Hospital Encounter HX [facility] Kalyan Taveras ROO M.D. [address] [place] [phone] (wo rk) Social History Tobacco Use Types Packs/Day Years Used Date Smoking Tobacco: Former Sex Assigned at Date Recorded Not on file documented as of this encounter Last Filed Vital Signs Vital Sign Reading Time Taken Comments Blood Pressure 133/78 07/10/2016 12:09 PM FOOTBALL PAD REPAIRER Pulse 61 07/10/2016 12:09 PM FOOTBALL PAD REPAIRER Temperature - - Respiratory Rate 20 07/10/2016 12:09 PM FOOTBALL PAD REPAIRER Oxygen Saturation - - Inhaled Oxygen Concentration - - Weight - - Height - - Body Mass Index - - documented in this encounter Discharge Summaries Britt Patterson R.N. - 07/10/2016 12:21 PM CST Hospital Discharge Instructions [address] [id number] Patient Discharge Instructions Name: RYLEY DURÁN Current Date: 07/10/2016 12:21:54 : 1940 12:00 AM [facility] Number: [id number] Patient Address: [address] [place] [id number] Patient Primary Care Provider: Name: PCP, MAKENZIE Phone: Discharge Diagnosis: [facility] in [place] would like to thank you for allowing [...] if you dont have one. Go to [email or web address] and click on Create Your Account. Then, follow the directions to complete the online form. Youll be asked for your [facility] number which you can find at the top of this document. LUIS ARMANDO Reed MARK ARNOLD , have received the attached patient education materials/instructions and haveverbalized understanding: Patient Signature Date Time Care Provider Signature Date Time 53517 Endoscopy/Colonoscopy/Flexible Sigmoidoscopy Post-Procedure Discharge Instructions Date: Sunday, [...] call your doctor or the Emergency Department ([phone])if you have any questions OR notice any [...] grain cereal with bran (Chex, Raisin Bran, [place] Bran), oatmeal, rolled oats, granola,wheat flakes, brown [...] all kinds OTHER: Popcorn, any spices ?? [phone] Inez [employer], [address] [place] [address], [place] [address]. All rights reserved. This information is not [...] needed, you may be told to take hvdf-vod-ffyxxvz stool softeners. To help relieve pain, antispasmodic [...] the option of having surgery with you. [place] [facility] Help keep your colon healthy with a diet that includes plenty of high-fiber fruits, vegetables, and whole grains. Drink plenty of liquids like water and juice. ?? [phone] In[facility], [address] [place] [address], [place] [address]. All rights reserved. This information is not intended as a substitute for professional medical care. Always follow your healthcare professional's instructions. This document has images extracted. Please consider using [facility] for all your patient education needs. Source: [facility] POWERCHART Document Id: [id number] BALL PAD REPAIRER Britt Patterson R.N. - 07/10/2016 12:21 PM CST Hospital Discharge Medication List [address] [id number] Discharge Medication List Name: RYLEY DURÁN Current Date: 07/10/2016 12:21:53 : 1940 12:00 AM [facility] Number: [id number] Patient Address: [address] [place] [phone] Patient Primary Care Provider: Name: PCPMAKENZIE Phone: Discharge Diagnosis: [facility] in [place] would like to thank you for allowing [...] PINKY ORDONEZ MD Signed On:10-JUL-2016 11:26:59 Source: [facility] [employer] Document Id: [id number] BALL PAD REPAIRER Britt Patterson R.N. - 07/10/2016 12:20 PM CST Discharge Summary Discharge Summary Entered On: 07/10/2016 12:21 FOOTBALL PAD REPAIRER Performed On: 07/10/2016 12:20 FOOTBALL PAD REPAIRER by BRITT PATTERSON RN DC Information Discharged to : Home independently, Home with family care Current Home Treatments : None Home Equipment : None Professional Skilled Services : None Special Services and Community Resources : None Mode of Discharge : Ambulatory Discharge Transportation : Private vehicle Accompanied By : Commutator Tester, Family Date/Time of Discharge : 07/10/2016 12:20 FOOTBALL PAD REPAIRER Add'l Discharge Comments : patient has been discharged - [facility] childrene for spouse to pickhi up - she had an errand to the airport BRITT PATTERSON RN - 07/10/2016 12:20 FOOTBALL PAD REPAIRER Source: [facility] [employer] Document Id: [id number] FOOTBALL PAD REPAIRER!12 BALL PAD REPAIRER documented in this encounter Medications at Time [...] suggests that it was the tartrate formulation. rpeksowykrvw-wvmaniqf-ksf Take 1 tablet by 0 06/0608/15/2018 ifrah [...] Updated Preprocedure Checklist Entered On: 07/10/2016 10:24 FOOTBALL PAD REPAIRER Performed On: 07/10/2016 10:21 FOOTBALL PAD REPAIRER by MICHEAL BENNETT RN Checklist Last Fluid Intake : 07/10/2016 7:00 FOOTBALL PAD REPAIRER Last Food Intake : 07/09/2016 12:00 FOOTBALL PAD REPAIRER MICHEAL BENNETT RN - 07/10/2016 10:21 FOOTBALL PAD REPAIRER Surgery Prep Grid Contacts/Glasses Removed : Yes Dentures Removed : NA (Comment: Full top and bottom [MICHEAL BENNETT RN - 07/10/2016 10:25 FOOTBALL PAD REPAIRER] ) Hairpins/Hairpiecies Removed : NA Hearing Aid Removed : Yes (Comment: R THOMAS [MICHEAL BENNETT RN - 07/10/2016 10:25 FOOTBALL PAD REPAIRER] ) Home Prep Complete : Yes Jewelry/Piercing Removed : NA Makeup/Nail Ghanaian Removed : NA Oral Hygiene : NA Preop Scrub AM of Surgery : NA Preop Scrub Night Prior to Surgery : NA Prosthesis Removed : NA Tampon Removed : NA Verified - No hair products used : NA Voided public information director to procedure : Yes Wearing Patient Gown : Yes MICHEAL BENNETT RN - 07/10/2016 10:21 FOOTBALL PAD REPAIRER Patient Rights Grid Blood Consent Signed : NA Surgical/Procedure Consent Signed : Yes MICHEAL BENNETT RN - 07/10/2016 10:21 FOOTBALL PAD REPAIRER Family Location : , [place], going to the airport to pick someone up. Will be back to get patient. MICHEAL BENNETT RN - 07/10/2016 10:21 FOOTBALL PAD REPAIRER Checklist II Patient Safety Grid Allergy Band on and Verified : NA (Comment: Patient states NKDA, side effect from statins [MICHEAL BENNETT RN - 07/10/2016 10:25 FOOTBALL PAD REPAIRER] ) Anesthesia Consult : Yes Band on [...] NA MICHEAL BENNETT RN - 07/10/2016 10:21 FOOTBALL PAD REPAIRER RN Who Verified Site : MICHEAL BENNETT RN Physician Who Verified Site : PINKY ORDONEZ MD, KASEY J RN - 07/10/2016 10:21 FOOTBALL PAD REPAIRER SORAYA Screening Known Obstructive Sleep Apnea : No - NOT diagnosed with SORAYA SORAYA Score : No qualifying data available. SORAYA Results : No qualifying data available. MICHEAL BENNETT RN - 07/10/2016 10:21 FOOTBALL PAD REPAIRER SORAYA Assessment Do you have high blood pressure or have you been told to take medication for high blood pressure? : No Frequency of Snoring : Never Frequency of Gasping, Choking, Snorting : Never Total Number of Historical Features : 0 Neck Circumference (cm) : 40/41 Total Sleep Apnea Clinical Score Calc : 3 MICHEAL BENNETT RN - 07/10/2016 10:21 FOOTBALL PAD REPAIRER Valuables/Belongings Valuables/Belongings Grid Valuables at Bedside Clothes, Patient Valuables : Jacket, Pants, Shirt, Shoes, Undergarments MICHEAL BENNETT RN - 07/10/2016 10:25 FOOTBALL PAD REPAIRER Room Orientation/Facility Policy Reviewed : Yes Home Medication Disposition : None brought in with patient MICHEAL BENNETT RN - 07/10/2016 10:25 FOOTBALL PAD REPAIRER Education Preprocedure Education Grid Procedure Type : Colonoscopy Education Topics : Anesthesia/Sedation, Pain management, Patient rights and responsibilities, Plan of care, Tubes/Drains/IV's Individuals Taught : Patient Barriers to Learning : None evident Teaching Method : Explanation, Printed materials Teaching Evaluation : Verbalizes understanding MICHEAL BENNETT RN - 07/10/2016 10:25 FOOTBALL PAD REPAIRER Preop Holding Mode of Arrival : Ambulatory Preoperative Orders Complete : Yes MICHEAL BENNETT RN - 07/10/2016 10:25 FOOTBALL PAD REPAIRER Advance Directive Advanced Directives : No Advance Directive Additional Information : No MICHEAL BENNETT RN - 07/10/2016 10:25 FOOTBALL PAD REPAIRER Vital Signs Temperature Core : 36.0 DegC(Converted to: 96.8 DegF) (LOW) Peripheral Pulse Rate : 67 /min Respiratory Rate : 12 /min (LOW) Systolic Blood Pressure : 135 mmHg Diastolic Blood Pressure : 86 mmHg NIBP Mean : 102 mmHg SpO2 : 96 % Oxygen Therapy : Room air MICHEAL BENNETT RN - 07/10/2016 10:25 FOOTBALL PAD REPAIRER Allergy (As Of: 07/10/2016 10:26:32 FOOTBALL PAD REPAIRER) Allergies (Active) statins Estimated Onset Date: Unspecified ; Reactions: myalgia ; Created By: SILVER ABDUL MD; Reaction Status: Active ; Category: Drug ; Substance: statins ; Type: Side Effect ; Updated By: SILVER ABDUL MD; Reviewed Date: 07/10/2016 10:26 FOOTBALL PAD REPAIRER Source: [facility] POWERCHART Document Id: [id number] FOOTBALL PAD REPAIRER!86 BALL PAD REPAIRER Pinky Ordonez M.D. - 07/10/2016 12:00 AM [...] Pinky Ordonez M.D./dirk cc: Silver Abdul M.D. [facility] [place] [address] Electronically Signed By: PINKY ORDONEZ MD On: 07/16/2016 09:29 AM Source: [facility] Document Id: [id number] documented in this encounter Nursing Notes Micheal Bennett R.N. - 07/10/2016 10:26 AM CST Day Surgery Admission History/Asmt Adult Document Has Been Updated Day Surgery Admission History/Asmt Adult Entered On: 07/10/2016 10:31 FOOTBALL PAD REPAIRER Performed On: 07/10/2016 10:26 FOOTBALL PAD REPAIRER by MICHEAL BENNETT RN General Info Preferred Name : Ryley Admitted From : Non-Health Care Facility Point of Origin Mode of Arrival : Ambulatory Present in Room During Exam/Procedure : Spouse Preferred Communication Mode : Verbal Information Given By : Patient Languages : Setswana Is Patient Female and 13-50 no hysterectomy : No MICHEAL BENNETT RN - 07/10/2016 10:26 FOOTBALL PAD REPAIRER Allergy (As Of: 07/10/2016 10:31:05 FOOTBALL PAD REPAIRER) Allergies (Active) statins Estimated Onset Date: Unspecified ; Reactions: myalgia ; Created By: SILVER ABDUL MD; Reaction Status: Active ; Category: Drug ; Substance: statins ; Type: Side Effect ; Updated By: SILVER ABDUL MD; Reviewed Date: 07/10/2016 10:26 FOOTBALL PAD REPAIRER Anesth/Transfusion Anesthesia/Transfusions : Prior anesthesia reaction Anesthesia Reaction : Excessive post op nausea Transfusion Acceptable in Emergency : Yes Amish/Other Objections to Blood Transfusions : No MICHEAL BENNETT RN - 07/10/2016 10:26 FOOTBALL PAD REPAIRER ID Screen Drug Resistant Organism : No MICHEAL BENNETT RN - 07/10/2016 10:26 FOOTBALL PAD REPAIRER Nutrition Have you recently lost weight without trying? : No Decreased Appetite Nutrition : No Tube Feedings or Parenteral Nutrition : No MST Score : 0 Home Diet : Regular Appetite : Excellent MICHEAL BENNETT RN - 07/10/2016 10:26 FOOTBALL PAD REPAIRER Home Environment Current Daily Living Assistance : None Living Situation : Home independently Home Equipment : None Sensory Deficits : None Mobility Assistance Prior to Admission : Independent Current Home Treatments : None Professional Skilled Services : None Special Services and Community Resources : None MICHEAL BENNETT RN - 07/10/2016 10:26 FOOTBALL PAD REPAIRER Dependent Habits Exposure to Tobacco Smoke : Other: former Smoking Status : Former smoker Tobacco 2A : Yes Tobacco Use/Currently Using : No Tobacco Use/Last 30 Days : No Tobacco Use/Last 12 months : No MICHEAL BENNETT RN - 07/10/2016 10:26 FOOTBALL PAD REPAIRER Caffeine Use Grid Caffeine Use : Current Type : Coffee Frequency : Daily MICHEAL BENNETT RN - 07/10/2016 10:26 FOOTBALL PAD REPAIRER Psychosocial Adult Domestic Abuse Concerns : None Behavioral Health Screen/Safety Assmt : No Amish Preference : Anglican MICHEAL BENNETT RN - 07/10/2016 10:26 FOOTBALL PAD REPAIRER Advance Directive Advanced Directives : No Advance Directive Additional Information : No MICHEAL BENNETT RN - 07/10/2016 10:26 FOOTBALL PAD REPAIRER Educ Needs Patient/Family Education Needs : Activity limitations/expectations, Plan of care, Safety, fall, Treatments/Procedures/Tests MICHEAL BENNETT RN - 07/10/2016 10:26 FOOTBALL PAD REPAIRER Learning Style Preference Adult Grid Patient : Verbal explanation, Printed materials Family : Verbal explanation MICHEAL BENNETT RN - 07/10/2016 10:26 FOOTBALL PAD REPAIRER Outpatient Assessment Procedural Respiratory : Respirations unlabored, [...] distress MICHEAL BENNETT RN - 07/10/2016 10:26 FOOTBALL PAD REPAIRER Psycho/Emotional Affect/Behavior : Calm, Cooperative, Appropriate Pain Symptoms : No MICHEAL BENNETT RN - 07/10/2016 10:26 FOOTBALL PAD REPAIRER Coping Grid Identifies effective strategies : Yes [...] Yes MICHEAL BENNETT RN - 07/10/2016 10:26 FOOTBALL PAD REPAIRER Safety Grid Vision, Hearing, Mobility Adequate to Meet Safety Needs : Yes MICHEAL BENNETT RN - 07/10/2016 10:26 FOOTBALL PAD REPAIRER Peripheral IV Peripheral IV Assess/Intervention Grid Peripheral IV #1 IV Activity : Start Number of Attempts : 1 Date of Insertion : 07/10/2016 FOOTBALL PAD REPAIRER IV Site : Hand Laterality : Right Catheter Size : 20 Catheter Type : Over the needle Site Condition : No complications Dressing/ Activity : Transparent Flow/ Patency : No complications IV Equipment/Supplies : Regular Comments (Comment: Inserted by Reno Patterson RN [MICHEAL BENNETT RN - 07/10/2016 10:26 FOOTBALL PAD REPAIRER] ) MICHEAL BENNETT RN - 07/10/2016 10:26 FOOTBALL PAD REPAIRER Hawk Sensory Perception Hawk : No impairment Moisture Hawk : Rarely moist Activity Hawk : Walks frequently Mobility Hawk : No limitations Nutrition Hawk : Excellent Friction and Shear Hawk : No apparent problem Hawk Score : 23 MICHEAL BENNETT RN - 07/10/2016 10:26 FOOTBALL PAD REPAIRER Falls Assessment Fall Injury Risk History of Falls : No Patient at Risk for Falls : No Fall Injury Risk Factors : None of the below Risk Factors Patient has increased Fall Injury Risk : No MICHEAL BENNETT RN - 07/10/2016 10:26 FOOTBALL PAD REPAIRER Hendrich II Fall Risk Confusion/Disorientation Hendrich : [...] 2 MICHEAL BENNETT RN - 07/10/2016 10:26 FOOTBALL PAD REPAIRER DC Needs Anticipated Discharge Date : 07/10/2016 FOOTBALL PAD REPAIRER Discharge To, Anticipated : Home with family intermediate Treatments, Anticipated : None Home Equipment, Anticipated : None Professional Skilled Services, Anticipated : None Special Serv & Comm Res, Anticipated : None Needs Assistance with Transportation : No Needs Assistance at Home Upon Discharge : No MICHEAL BENNETT RN - 07/10/2016 10:26 FOOTBALL PAD REPAIRER Source: [facility] POWERCHART Document Id: [id number] FOOTBALL PAD REPAIRER!126 BALL PAD REPAIRER Micheal Bennett R.N. - 07/04/2016 4:24 PM CST [...] (x) No. Comment: _ Do you have presybeterian or other objection to having a blood [...] at home (x) Do you have a furniture mover driver. Please have their telephone number (x) NPO 2 hours prior to arrival (x) Check in information (x) Be sure to have verified your scheduled procedure with your insurance company [employer] Do not drive for 24 hours after procedure. Please have a furniture mover driver with you to take you home. Arrange for a person to stay with you at least 5 hours after procedure. If you have any questions at any time please call . Electronically Signed By: MICHEAL BENNETT RN On: 07/09/2016 02:29 PM Modified by and Electronically Signed by: MICHEAL BENNETT RN On: 07/09/2016 02:29 PM Source: [facility] POWERCHART Document Id: [id number] BALL PAD REPAIRER documented in this encounter OR Notes Op [...] APRN, CRNA On: 07/10/2016 12:45 PM Source: [facility] [employer] Document Id: [id number] BALL PAD REPAIRER documented in this encounter Miscellaneous Notes Miscellaneous - Arleth Ryan R.N. - 07/31/2016 3:08 PM CDT Reminder Msg From: ARLETH RYAN RN To: [place] Colonoscopy Pool; Sent: 07/31/2016 15:08:06 CDT Show up: 05/05/2021 15:08:00 FOOTBALL PAD REPAIRER Subject: Reminder Msg Due Date/Time: 07/03/2021 15:08:00 FOOTBALL PAD REPAIRER Please Remember to: Repeat scope in 5 years. PATIENT: ( ) Call Patient ( ) Ask Patient to ( ) ( ) Call Relative ( ) Schedule Patient ( ) ( ) Call for Web Analytics Developer ( ) Follow up on Results ( ) Other: PROVIDER: ( ) Call Physician ( ) Call Pharmacist ( ) Call Lab ( ) Other: Special Instructions: Comments: Source: [facility] [employer] Document Id: [id number] Miscellaneous - Britt Patterson, R.N. - 07/10/2016 12:20 PM CST Valuables/Belongings Valuables/Belongings Entered On: 07/10/2016 12:21 FOOTBALL PAD REPAIRER Performed On: 07/10/2016 12:20 FOOTBALL PAD REPAIRER by BRITT PATTERSON RN Valuables/Belongings Valuables/Belongings Grid Valuables at Bedside Clothes, Patient Valuables : Jacket, Pants, Shirt, Shoes, Undergarments BRITT PATTERSON RN - 07/10/2016 12:21 FOOTBALL PAD REPAIRER Room Orientation/Facility Policy Reviewed : Yes Belongings Sent Home With : all with patient Home Medication Disposition : None brought in with patient BRITT PATTERSON RN - 07/10/2016 12:21 FOOTBALL PAD REPAIRER Source: [facility] [employer] Document Id: [id number] FOOTBALL PAD REPAIRER!8 BALL PAD REPAIRER Miscellaneous - Cheryl, Radha Provider Ser - 07/10/2016 12:20 PM FOOTBALL PAD REPAIRER Coding Summary-Paper Based CODING DATE: 07/15/2016 FINAL [place] [facility] STATUS: * Discharged to Home or Self Care PAYOR: Medicare APC DESCRIPTION 5311 Level 1 Lower GI Procedures ADMIT DX: REASON FOR VISIT DX: FINAL DX: PRINCIPAL: Z12.11 Encounter for screening for malignant neoplasm of colon SECONDARY: Z86.010 Personal history of colonic polyps K57.30 Diverticulosis of large intestine without perforation or abscess without bleeding 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 - 07/10/2016 12:09 PM CST Adult Postprocedure Assessment Adult Postprocedure Assessment Entered On: 07/10/2016 12:12 FOOTBALL PAD REPAIRER Performed On: 07/10/2016 12:09 FOOTBALL PAD REPAIRER by BRITT PATTERSON RN Vital Signs Temperature Core : 36.0 DegC(Converted to: 96.8 DegF) (LOW) Peripheral Pulse Rate : 61 /min Respiratory Rate : 20 /min Systolic Blood Pressure : 133 mmHg Diastolic Blood Pressure : 78 mmHg NIBP Mean : 96 mmHg SpO2 : 96 % Oxygen Therapy : Room air BRITT PATTERSON RN - 07/10/2016 11:57 FOOTBALL PAD REPAIRER General Level of Consciousness : Alert Orientation : Oriented x 3 Skin Color : Normal for ethnicity Skin Description : Dry Skin Temperature : Warm Pain Symptoms : No BRITT PATTERSON RN - 07/10/2016 11:57 FOOTBALL PAD REPAIRER Cardiovascular Heart Rhythm : Regular Nail Bed Color : [place] Capillary Refill : Less than 2 seconds BRITT PATTERSON RN - 07/10/2016 11:57 FOOTBALL PAD REPAIRER Respiratory Respirations : Unlabored Respiratory Pattern : Regular All Lobes Breath Sounds : BRITT Dean 07/10/2016 11:57 FOOTBALL PAD REPAIRER GI/ Nausea Symptoms : No BRITT PATTERSON 07/10/2016 11:57 FOOTBALL PAD REPAIRER Integumentary Skin Color : Normal for ethnicity Skin Description : Dry Skin Temperature : Warm BRITT PATTERSON 07/10/2016 11:57 FOOTBALL PAD REPAIRER I&O Oral Intake : 120 mL BRITT PATTERSON 07/10/2016 11:57 FOOTBALL PAD REPAIRER Neurologic Swallowing Difficulty/Aspiration Risk : None Extremity Movement : Equal Facial Symmetry : Symmetric Characteristics of Speech : BRITT Dean 07/10/2016 11:57 FOOTBALL PAD REPAIRER Activity Patient Position : Elevate head of bed 45 degrees Activity Status ADL : Up ad naomy Activity Assistance : Independent BRITT PATTERSON 07/10/2016 11:57 FOOTBALL PAD REPAIRER PARSAP Activity Status : Moves 4 extremities [...] Score : 20 BRITT PATTERSON 07/10/2016 11:57 FOOTBALL PAD REPAIRER Vale Vale Agitation Sedation Scale (RASS) : Alert and calm RASS Score : 0 BRITT PATTERSON 07/10/2016 11:57 FOOTBALL PAD REPAIRER Hawk Sensory Perception Hawk : No impairment Moisture Hawk : Rarely moist Activity Hawk : Walks frequently Mobility Hawk : No limitations Nutrition Hawk : Excellent Friction and Shear Hawk : No apparent problem Hawk Score : 23 BRITT PATTERSON 07/10/2016 11:57 FOOTBALL PAD REPAIRER Falls Assessment Fall Injury Risk History of Falls : No Patient at Risk for Falls : No Fall Injury Risk Factors : None of the below Risk Factors Patient has increased Fall Injury Risk : No BRITT PATTERSON 07/10/2016 11:57 FOOTBALL PAD REPAIRER Hendrich II Fall Risk Confusion/Disorientation Hendrich : [...] Risk Score Charito II : 1 BRITT PATTEROSN RN - 07/10/2016 11:57 FOOTBALL PAD REPAIRER Safe Patient Handling Safe Pt Handling Independent : Yes - No equipment needed Safe Pt Handling Equipment Rec : No Equipment Needed BRITT PATTERSON RN - 07/10/2016 11:57 FOOTBALL PAD REPAIRER Education General Patient Education [employer] Topics : Activity limitations/expectations, Discharge instructions/Medication list, Physical limitations, Plan of care, Printed materials, Safety, fall, When to call health care provider Individuals Taught : Patient Barriers to Learning : None evident Teaching Method : Explanation Teaching Evaluation : Verbalizes understanding BRITT PATTERSON RN - 07/10/2016 11:57 FOOTBALL PAD REPAIRER [facility] Document Id: [id number] FOOTBALL PAD REPAIRER!91 BALL PAD REPAIRER Miscellaneous - Britt Patterson RSelvin - 07/10/2016 11:48 AM CST Adult Postprocedure Assessment Adult Postprocedure Assessment Entered On: 07/10/2016 11:51 FOOTBALL PAD REPAIRER Performed On: 07/10/2016 11:48 FOOTBALL PAD REPAIRER by BRITT PATTERSON RN Vital Signs Peripheral Pulse Rate : 66 /min Respiratory Rate : 20 /min Systolic Blood Pressure : 139 mmHg Diastolic Blood Pressure : 79 mmHg NIBP Mean : 99 mmHg SpO2 : 97 % Oxygen Therapy : Room air BRITT PATTERSON RN - 07/10/2016 11:48 FOOTBALL PAD REPAIRER General Level of Consciousness : Alert Orientation : Oriented x 3 Skin Color : Normal for ethnicity Skin Description : Dry Skin Temperature : Warm Pain Symptoms : No BRITT PATTERSON RN - 07/10/2016 11:48 FOOTBALL PAD REPAIRER Cardiovascular Heart Rhythm : Regular Nail Bed Color : [place] Capillary Refill : Less than 2 seconds BRITT PATTERSON RN - 07/10/2016 11:48 FOOTBALL PAD REPAIRER Respiratory Respiratory Patient Stated Symptoms : None Respirations : Unlabored Distress : None Respiratory Pattern : Regular Cough and Deep Breathe : Done Cough : None BRITT PATTERSON RN - 07/10/2016 11:48 FOOTBALL PAD REPAIRER GI/ Nausea Symptoms : No BRITT PATTERSON RN - 07/10/2016 11:48 FOOTBALL PAD REPAIRER Integumentary Skin Color : Normal for ethnicity Skin Description : Dry Skin Temperature : Warm BRITT PATTERSON 07/10/2016 11:48 FOOTBALL PAD REPAIRER Peripheral IV Peripheral IV Assess/Intervention Grid Peripheral IV #1 IV Activity : Discontinue Removal : Catheter intact, Hemostasis within expected timeframe Date of Insertion : 07/10/2016 FOOTBALL PAD REPAIRER Discontinued Date : 07/10/2016 FOOTBALL PAD REPAIRER IV Site : Hand Laterality : Right Catheter Size : 20 Catheter Type : Over the needle Site Condition : No complications Drainage Description : None Infiltration Score : 0 Phlebitis Score : 0 BRITT PATTERSON 07/10/2016 11:48 FOOTBALL PAD REPAIRER I&O Oral Intake : 120 mL Other Intake : 400 mL (Comment: I.V. fluids [BRITT PATTERSON 07/10/2016 11:48 FOOTBALL PAD REPAIRER] ) BRITT PATTERSON 07/10/2016 11:48 FOOTBALL PAD REPAIRER Nutrition Morning Snack : 100 % BRITT PATTERSON 07/10/2016 11:48 FOOTBALL PAD REPAIRER Neurologic Swallowing Difficulty/Aspiration Risk : None Extremity Movement : Equal Facial Symmetry : Symmetric Characteristics of Speech : Appropriate for age BRITT PATTERSON 07/10/2016 11:48 FOOTBALL PAD REPAIRER Activity Patient Position : Elevate head of bed 45 degrees BRITT PATTERSON 07/10/2016 11:48 FOOTBALL PAD REPAIRER PARSAP Activity Status : Moves 4 extremities [...] Score : 20 BRITT PATTERSON 07/10/2016 11:48 FOOTBALL PAD REPAIRER Vale Vale Agitation Sedation Scale (RASS) : Alert and calm RASS Score : 0 BRITT PATTERSON 07/10/2016 11:48 FOOTBALL PAD REPAIRER Hawk Sensory Perception Hawk : No impairment Moisture Hawk : Rarely moist Activity Hawk : Walks frequently Mobility Hawk : No limitations Nutrition Hawk : Excellent Friction and Shear Hawk : No apparent problem Hawk Score : 23 BRITT PATTERSON 07/10/2016 11:48 FOOTBALL PAD REPAIRER Falls Assessment Fall Injury Risk History of Falls : No Patient at Risk for Falls : No Fall Injury Risk Factors : None of the below Risk Factors Patient has increased Fall Injury Risk : No BRITT PATTERSON RN - 07/10/2016 11:48 FOOTBALL PAD REPAIRER Hendrich II Fall Risk Confusion/Disorientation Hendrich : [...] 1 BRITT PATTERSON RN - 07/10/2016 11:48 FOOTBALL PAD REPAIRER Safe Patient Handling Safe Pt Handling Independent : Yes - No equipment needed Safe Pt Handling Equipment Rec : No Equipment Needed BRITT PATTERSON RN - 07/10/2016 11:48 FOOTBALL PAD REPAIRER Source: [employer] Document Id: [id number] FOOTBALL PAD REPAIRER!101 BALL PAD REPAIRER Miscellaneous - Pinky Ordonez M.D. - 07/10/2016 11:27 AM CST Hospital Patient Education The following Patient Education Materials have been given to the patient: Patient Education Materials: Discharge Instructions - Adult (CUSTOM) Ambulatory DIET, High FIber ED/Trauma Understanding Diverticulosis and Diverticulitis 37722 Endoscopy/Colonoscopy/Flexible Sigmoidoscopy Post-Procedure Discharge Instructions Date: Sunday, [...] call your doctor or the Emergency Department ([phone])if you have any questions OR notice any [...] grain cereal with bran (Chex, Raisin Bran, [place] Bran), oatmeal, rolled oats, granola,wheat flakes, brown [...] all kinds OTHER: Popcorn, any spices ?? [id number] Inez Olivera, [address] [facility], [place] [address]. All rights reserved. This information is not [...] needed, you may be told to take qfav-zhe-rcpauin stool softeners. To help relieve pain, antispasmodic [...] the option of having surgery with you. [place] to Colon Health Help keep your colon healthy with a diet that includes plenty of high-fiber fruits, vegetables, and whole grains. Drink plenty of liquids like water and juice. ?? [phone] Inez [facility], [address] [place] [address], [place] [address]. All rights reserved. This information is not intended as a substitute for professional medical care. Always follow your healthcare professional's instructions. This document has images extracted. Please consider using [employer] for all your patient education needs. Source: [facility] POWERCHART Document Id: [id number] BALL PAD REPAIRER documented in this encounter Plan of Treatment Not on filedocumented as of this encounter Visit Diagnoses Not on filedocumented in this encounter Additional Health Concerns Assessment Noted Time PHQ-9 Depression Total Score: 2 03/08/2015 11:16 AM CS T documented as of this encounter
--- OUTSIDE RECORDS SUMMARY | 2021-12-18 08:08 | XMS_ITS | Encounter Summary ---
:1940 Author Organization [facility] Address [address] [place] [address] Care Team Providers Name Role Phone Unavailable Primary Care Provider Unavailable Encounter Details Date Type Department Care Team Description 07/21/2017 [facility] Raymundo Muniz, EXTRACTION CATARACT [address] [place] [address] BLVD M.DLara WITH INSERTION [place], [place] [address] INTRAOCULAR LENS [address] [place], [place] [phone] [address] (Wo rk) Social History Tobacco Use [...] from the original note were not included. [facility] Cataract/Trabeculectomy Discharge Instructions, Eye Care [...] (Month DD, YYYY) Time (hh:mm) Ophthalmology at [facility] Phone Numbers: Office: [phone] Toll Free: [phone] ext. [phone] ??2015 [facility] Medical Education and Research Page 1 of 2 [id number] When you leave the hospital after your [...] tartrate 0 06/23/201708/15 (for_LOPRESSOR) 25 mg tablet jocrqywspmrm-hrdwkpnj-af Take 1 tablet by 0 06/2508/15/2018 rrous [...] Raymundo Muniz M.D. - 07/07/2017 9:35 AM LOG YARD MANAGER History of present illness: The patient is [...] Implant Name Type Inv. Item Serial No. Molded Grid And Parts Inspector Lot No. LRB No. Used Action [id number] Ocular Lens [id number] Ann Left 1 Implanted Raymundo Muniz M.D. [...]
--- OUTSIDE RECORDS SUMMARY | 2021-12-18 08:08 | XMS_ITS | Encounter Summary ---
:1940 Author Organization [facility] Address [address] [place] [address] Care Team Providers Name Role Phone Unavailable Primary Care Provider Unavailable Encounter Details Date Type Department Care Team Description 07/17/2017 Abstract Department of Family Medicine, Provider, Historical [facility], in [place], [place] [address] [place] [address] Social History Tobacco Use Types Packs/Day [...]
--- OUTSIDE RECORDS SUMMARY | 2021-12-18 08:08 | XMS_ITS | Encounter Summary ---
:1940 Author Organization [facility] Address [address] [place] [address] Care Team Providers Name Role Phone Unavailable Primary Care Provider Unavailable Encounter Details Date Type Department Care Team Description 08/08/2015 Hospital Encounter [facility] ENT Maggie Osborne M.D. [address] [place], [place] [phone] (Wo rk) Social History [...] Osborne M.D. - 08/08/2015 8:04 AM CDT [id number] Mr. Vines is a pleasant 75-year-old gentleman. CHIEF COMPLAINT/REASON FOR VISIT Blood in ear canals, consult at the request of Laila Loco CNP, [facility]. HISTORY OF PRESENT ILLNESS Mr. Vines reports recently he was noted to have blood in both ears. He was told they look different. He had a history of cerumen impaction which is typically uneventfully debrided at [facility]. He said recently he used [...] family history. SOCIAL HISTORY No tobacco. 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 PHYSICAL EXAMINATION GENERAL: He appears well. No [...] otherwise. Maggie Osborne M.D./dirk cc: Laila Loco, CUSHION ASSEMBLER, COMPARATOR OPERATOR [facility] [address] [place] [address] Electronically Signed By: MAGGIE OSBORNE MD On: 08/15/2015 07:59 AM Source: [facility] MHSDOLBEYNONRADSYS Document Id: [id number] documented in this encounter Miscellaneous Notes Miscellaneous - Maggie Osborne M.D. - 08/08/2015 9:11 AM CDT Ambulatory Patient Summary [facility] [address], [address] [place], [place] [id number] Visit Information Name: RYLEY VINES [facility] Number: [id number] Current Date: 08/08/2015 09:11:13 [...] you dont have one. Go to [email or web address] and click on Create Your Account. Then, follow the directions to complete the online form. Youll be asked for your [facility] number which you can find at the top of this document. Your Goals/Additional instructions: Source: [facility] POWERCHART Document Id: [id number] Miscellaneous - Maggie Osborne M.D. - 08/08/2015 9:11 AM CDT Ambulatory Discharge Medication List [facility] [address], [address] [place], [place] [id number] Visit Information Name: RYLEY VINES [facility] Number: [id number] Visit Date: 08/08/2015 09:11:13 [...] MD Signed On:08-AUG-2015 09:10:58 Additional Information: Source: [facility] Responsible CityCHART Document Id: [id number] Miscellaneous - Kami Redmond, C.M.ALara - 08/08/2015 8:19 AM CDT Adult Silo Filler Intake/History Adult Silo Filler Intake/History Entered On: 08/08/2015 8:19 CDT Performed On: 08/08/2015 8:19 CDT by KAMI REDMOND [facility] Intake Temperature Core : 36.5 DegC(Converted to: 97.7 DegF) Peripheral Pulse Rate : 62 /min Systolic Blood Pressure : 121 mmHg Diastolic Blood Pressure : 71 mmHg NIBP Mean : 88 mmHg KAMI REDMOND [facility] - 08/08/2015 8:22 CDT Chief Complaint : blood in both ear canals KAMI REDMOND [facility] - 08/08/2015 8:19 CDT General Info Information Given By : Patient Preferred Communication Mode : Verbal Languages : Mohawk Is Patient Female and 13-50 no hysterectomy : No KAMI REDMOND [facility] - 08/08/2015 8:19 CDT Subjective Pain Symptoms : No KAMI REDMOND [facility] - 08/08/2015 8:19 CDT Dependent Habits Exposure to Tobacco Smoke : Other: former Smoking Status : Former smoker Tobacco 2A : Yes Tobacco Use/Currently Using : No Tobacco Use/Last 30 Days : No Tobacco Use/Last 12 months : No KAMI REDMOND [facility] - 08/08/2015 8:19 CDT Caffeine Use Grid Caffeine Use : Current Type : Coffee Frequency : Daily KAMI REDMOND [facility] - 08/08/2015 8:19 CDT Source: [facility] Event Innovation Document Id: [id number] CDT!7 documented in this encounter Plan of Treatment Not on filedocumented as of this encounter Visit Diagnoses Not on filedocumented in this encounter Additional Health Concerns Assessment Noted Time PHQ-9 Depression Total Score: 2 03/08/2015 11:16 AM CS T documented as of this encounter
--- OUTSIDE RECORDS SUMMARY | 2021-12-18 08:08 | XMS_ITS | Encounter Summary ---
:1940 Author Organization [facility] Address [address] [place] [address] Care Team Providers Name Role Phone Unavailable Primary Care Provider Unavailable Encounter Details Date Type Department Care Team Description 05/12/2015 Hospital Encounter HX [facility] Rodger Miranda M.D. [address] [place], [place] [phone] (Wo rk) Social History [...] Duenas M.D. - 05/12/2015 8:14 AM CST [id number] CHIEF COMPLAINT/REASON FOR VISIT Follow up status [...] DUENAS MD On: 05/15/2015 07:26 AM Source: [facility] MHSDOLBEYNONRADSYS Document Id: [id number] GER EVENT documented in this encounter Miscellaneous Notes Miscellaneous - Marv Duenas M.D. - 05/12/2015 9:32 AM CST Ambulatory Patient Summary [facility] [address], [address] [place], [place] [phone] Visit Information Name: RYLEY VINES [facility] Number: [id number] Current Date: 05/12/2015 09:32:50 Physicians [...] online form. Youll be asked for your [facility] number which you can find at the top of this document. Your Goals/Additional instructions: Source: [facility] POWERCHART Document Id: [id number] GER EVENT Miscellaneous - Marv Duenas M.D. - 05/12/2015 9:32 AM CST Ambulatory Discharge Medication List [facility] [address], [address] [place], [place] [phone] Visit Information Name: RYLEY VINES [facility] Number: [id number] Visit Date: 05/12/2015 09:32:49 Attending [...] MD Signed On:12-MAY-2015 09:32:43 Additional Information: Source: [facility] POWERCHART Document Id: [id number] GER EVENT Miscellaneous - Annemarie Mcgee LLaraPLaraNLara - 05/12/2015 9:05 AM CST Adult Videotape Editor Intake/History Adult Videotape Editor Intake/History Entered On: 05/12/2015 9:05 MANAGER EVENT Performed On: 05/12/2015 9:05 MANAGER EVENT by ANNEMARIE MCGEE LPN Intake Chief Complaint : Patient here for post op right TSA, [id number], c/o right hand swelling, x-rays obtained ANNEMARIE MCGEE LPN - 05/12/2015 9:05 MANAGER EVENT General Info Information Given By : Patient Preferred Communication Mode : Verbal Languages : Wolof Is Patient Female and 13-50 no hysterectomy : No ANNEMARIE MCGEE LPN - 05/12/2015 9:05 MANAGER EVENT Subjective Pain Symptoms : No ANNEMARIE MCGEE LPN - 05/12/2015 9:05 MANAGER EVENT Dependent Habits Exposure to Tobacco Smoke : Other: former Smoking Status : Former smoker Tobacco 2A : Yes Tobacco Use/Currently Using : No Tobacco Use/Last 30 Days : No Tobacco Use/Last 12 months : No ANNEMARIE MCGEE LPN - 05/12/2015 9:05 MANAGER EVENT Caffeine Use Grid Caffeine Use : Current Type : Coffee Frequency : Daily ANNEMARIE MCGEE LPN - 05/12/2015 9:05 MANAGER EVENT Source: [employer] Document Id: [id number] MANAGER EVENT!22 GER EVENT documented in this encounter Plan of Treatment Not on filedocumented as of this encounter Visit Diagnoses Not on filedocumented in this encounter Additional Health Concerns Assessment Noted Time PHQ-9 Depression Total Score: 2 03/08/2015 11:16 AM CS T documented as of this encounter
--- OUTSIDE RECORDS SUMMARY | 2021-12-18 08:09 | XMS_ITS | Encounter Summary ---
:1940 Author Organization [facility] Address [address] [place] [address] Care Team Providers Name Role Phone Unavailable [...]
--- OUTSIDE RECORDS SUMMARY | 2021-12-18 08:09 | XMS_ITS | Encounter Summary ---
:1940 Author Organization [facility] Address [address] [place] [address] Care Team Providers Name Role Phone Unavailable [...]
--- OUTSIDE RECORDS SUMMARY | 2021-12-18 08:09 | XMS_ITS | Encounter Summary ---
:1940 Author Organization [facility] Address [address] [place] [address] Care Team Providers Name Role Phone Unavailable [...] PM 0 1:00 CDT PM CDT Narrative [facility] - 08/21/1999 1:00 PM CDT [id number] Surgical Pathology Requested By: ? Klaus Gonzalez M.D. ? ([id number]) ?? TISSUE DESCRIPTION: ?? Tissue from the left carotid artery (2.5 x 0.9 x 0.7 cm) ?? DIAGNOSIS: ?? Plaque, left carotid artery, excisio n: ??Segment of atheromatous plaque identified. ?? [id number] ?Tonya Lee M.D.:mgs Procedure Note 07/26/2017 [id number] Surgical Pathology Requested By: Klaus Gonzalez M.D. ( [id number]) TISSUE DESCRIPTION: Tissue from the left carotid artery (2. 5 x 0.9 x 0.7 cm) DIAGNOSIS: Plaque, left carotid artery, excision: Segment of atheromatous plaque identified. [id number] Tonya Lee M.D.:s Klaus Gonzalez M.D. LAB PATHOLOGY/CYTOLOGY ORDER VALDEZ Performing Organization Address City/State/ZIP Code Phon e Number [facility] [address] [place], [place] [address] [facility] EEG routine - awake and sleep (08/21/1999 12:36 PM CDT) Specimen (Source) Anatomical Collection Method Collection Time Re ceived Time Location / / Volume Laterality 08/21/1999 12:36 PM CDT Narrative [facility] - 08/21/1999 12:36 PM CDT ?? Final Report ? El ectroencephalography ?? Referring Physician: ??Carlos ??[id number] [id number] 1 ? Date: ??21 Aug 1999 ?? EEG Associate Data Scientist: ? Rolf Giordano on 17 ?? Clinical Problem: ? Left carotid endarterectomy [...] no change with occlusion o r following anabaptism of flow. Rolf Ott ?melchor (Signature date Aug 1999 13:58) Procedure Note Provider, Historical - 08/18/2017Formatt ing of this note might be different from the original. Final Report Electroencephalography Referring Physician: [id number] Date : 21 Aug 1999 EEG Associate Data Scientist: Rolf Ott [id number] Clinical Problem: Left carotid endarter ectomy CLINICAL [...] no change with occlusion or f ollowing anabaptism of flow. Rolf roche (Signature date Aug 1999 13:58) Historical Provider NEUROLOGY ORDERABLES Performing Organization Address City/State/ZIP Code Phon e Number HX [facility] [address] [place] [address], U SA US Carotid (08/20/1999 9:19 AM CDT) Anatomical Region Laterality Modality Ultrasound Specimen (Source) Anatomical Collection Method Collection Time Re ceived Time Location / / Volume Laterality 08/20/1999 9:19 AM CDT Narrative 08/20/1999 11:27 AM CDT 20-Aug-1999 09:19:00 ??Exam: US Carotid Arteries Complete Indications: tia ? [id number] ??cart ORIGINAL REPORT - 20-Aug-1999 11:27:00 VELOCITIES [...] US Carotid Ar teries Complete Indications: tia [id number] cart ORIGINAL REPORT - 20-Aug-1999 11:27:00 VELOCITIES [...] negative. Electronically signed by: Elisha Covarrubias MD. [id number] 18-Aug-1999 14:1 3 Severiano Mayfield M.D. IMG [...] Address City/State/ZIP Code Phon e Number HX [facility] [address] [place] [address], [address] Head without IV Contrast (08/18/1999 12:22 PM CDT) Anatomical Region Laterality Modality Head N/A Computed Tomography Specimen (Source) Anatomical Collection Method Collection Time Re ceived Time Location / / Volume Laterality 08/18/1999 12:22 PM CDT Narrative 08/19/1999 9:01 AM CDT 18-Aug-1999 12:22:00 ??Exam: CT Head wo Indications: TIA REVISED REPORT - 19-Aug-1999 09:01:00 Revised 08/19/1999 09:00:15 ([id number]) ??CT scan of the head without contrast is negative. No hemorrhage or mass effect. IND [id number] ??DX ??180.120 Electronically signed by: ?? Reno Brna MD. ??[id number] 19-Aug-1999 0 9:01 Procedure Note Akilah Bran M.D. - 08/11/2017F ormatting of this note might be different from the original. 18-Aug-1999 12:22:00 Exam: CT Head wo Indications: TIA REVISED REPORT - 19-Aug-1999 09:01:00 Revised 08/19/1999 09:00:15 ([id number]) CT scan of the head without c ontrast is negative. No hemorrhage or mass effect. IND 101.5424 DX 180.120 Electronically signed by: Reno Bran MD. [id number] 19-Aug-1999 09: 01 Severiano Mayfield M.D. IMJulienne CT PROCEDURES documented in this encounter Visit Diagnoses Not on filedocumented in this encounter
--- OUTSIDE RECORDS SUMMARY | 2021-12-18 08:09 | XMS_ITS | Encounter Summary ---
:1940 Author Organization [facility] Address [address] [place] [address] Care Team Providers Name Role Phone Unavailable [...] PM 4 3:43 CDT PM CDT Narrative [facility] - 09/09/2003 3:43 PM CDT ?09/09/2003 General Biopsy ? ([id number]) ? Requested By: ??Giulia Gonzalez ??[id number] ?? Additional Physician: ??Raymundo hermosillo M.D. [id number] ? TISSUE DESCRIPTION: [id number] A1 ?? A. ??Sigmoid/Rectum, Colon biopsy: ??(5 pieces 0.1 - 0.5 cm. in diameter) ?DIAGNOSIS: ?? Colon, sigmoid and rectum, polyps, endo scopic biopsy: ??Fragments of hyperplastic polyps. ? 09/12/03 ??Shelly Mcnamara M.D. [id number] ? Procedure Note 07/26/2017 09/09/2003 General Biopsy ([id number]) Requested By: Marv Pryor M.D. [id number] Additional Physician: Raymundo uriostegui M.D. [id number] TISSUE DESCRIPTION: [id number] A1 A. Sigmoid/Rectum, Colon biopsy: (5 pie rashawn 0.1 - 0.5 cm. in diameter) DIAGNOSIS: Colon, sigmoid and rectum, polyps, endo scopic biopsy: Fragments of hyperplastic polyps. 09/12/03 Shelly Mcnamara M.D. [id number] Historical Provider LAB PATHOLOGY/CYTOLOGY ORDER VALDEZ Performing Organization Address City/State/ZIP Code Phon e Number [facility] - [address] [place], [place] [address] [facility] documented in this encounter Visit Diagnoses Not on filedocumented in this encounter
--- OUTSIDE RECORDS SUMMARY | 2021-12-18 08:09 | XMS_ITS | Encounter Summary ---
:1940 Author Organization [facility] Address [address] [place] [address] Care Team Providers Name Role Phone Unavailable [...]
--- OUTSIDE RECORDS SUMMARY | 2021-12-18 08:09 | XMS_ITS | Encounter Summary ---
:1940 Author Organization [facility] Address [address] [place] [address] Care Team Providers Name Role Phone Unavailable Primary Care Provider Unavailable Encounter Details Date Type Department Care Team Description 01/09/2010 Hospital Encounter HX [facility] Delbert Almaguer M.D. [address] [place], [place] [phone] (Wo rk) Social History [...] Almaguer M.D. - 01/09/2010 12:00 AM CDT [id number] IMPRESSION / REPORT / PLAN Cerumen impaction [...] [facility] that [facility] and so he [facility] that and [...] ALMAGUER MD On 01/15/2010 08:32 AM Source: [facility] MHSDOLBEYNONRADSYS Document Id: [id number] documented in this encounter Nursing Notes Conversion, Historical Provider Ser - 01/11/2010 11:50 AM CDT Pt is scheduled for a colonoscopy on January 31 at 815am at [address] A message was left for the pt to call clinic for information Electronically Signed By:TIEN ELLIS On 01/11/2010 11:51 am Source: [facility] [employer] Document Id: [id number] documented in this encounter Miscellaneous Notes Miscellaneous - Tj Almaguer M.D. - 01/09/2010 2:40 PM CDT General Message From: TJ ALMAGUER MD Sent: 01/09/2010 14:40:41 CDT Subject: General Message Please schedule followup colonoscopy, history polyps X 2 in 2003. [facility]. Source: [facility] POWERCHART Document Id: [id number] Electronically signed by Conversion, [facility] Waiter/Waitress Bar [id number] at 10/07/2016 1:31 AM CDT Miscellaneous - Conversion, Historical Provider Ser - 01/09/2010 1:57 PM CDT Adult Tierce Filler Intake/History Adult Tierce Filler Intake/History Entered On: 01/09/2010 14:00 CDT Performed [...] ELLIS - 01/09/2010 13:57 CDT Allergies [facility] POWERCHART Document Id: [id number] CDT!22 documented in this encounter Plan of Treatment Not on filedocumented as of this encounter Visit Diagnoses Not on filedocumented in this encounter
--- OUTSIDE RECORDS SUMMARY | 2021-12-18 08:09 | XMS_ITS | Encounter Summary ---
:1940 Author Organization [facility] Address [address] [place] [address] Care Team Providers Name Role Phone Unavailable Primary Care Provider Unavailable Encounter Details Date Type Department Care Team Description 03/08/2015 Hospital Encounter [facility] Oh Lynch M.D. [address] [place] [address] (Wo rk) Social History Tobacco [...] CST PHQ-9 PHQ-9 Entered On: 03/08/2015 11:16 YARDAGE CALLER Performed On: 03/08/2015 11:16 YARDAGE CALLER by KEI GONZALEZ RN PHQ-9 Little interest [...] 2 KEI GONZALEZ RN - 03/08/2015 11:16 YARDAGE CALLER Source: [employer] Document Id: [id number] YARDAGE CALLER!13 AGE CALLER Miscellaneous - Kei Gonzalez R.N. - 03/08/2015 10:55 AM CST Geremias 03/23/15 From: KEI GONZALEZ RN ([facility] Surgery Nurse Telecommunications Clerk) To: Anesthesia; Sent: 03/08/2015 10:55:18 YARDAGE CALLER Subject: Geremias 03/23/15 SURGERY NURSE OPTICAL LATHE OPERATOR Skin Alert Assessment: Complete this section only [...] Yes Comment: _ Do you have any hoahaoism or other objection to having a blood transfusion? (x)No (_)Yes Scheduling Follow-Up: [employer] Work Supervisor requested: (x) N/A (_) Yes Comment: _ [...] then no styling products in the hair. -driver sales required for same day surgery patients, patient [...] planners, completed PHQ 9 and gave patient [facility] Shoulder Replcement Surgery, Patient Education (_)Reviewed parental presence program (_)Reviewed tonsillectomy teaching sheet (_)Reviewed ear tube teaching sheet (_)Pre op PT appt (total shoulders only) Post op appointments: 1st po with surgeon or physician curriculum assistant principal: (x) made (_)TBD (_)Audiology appointment (PE tubes), (_)2 days post op ultrasound to r/o DVT (VNUS closure), (_)PO OT appt made (Hand surgery if requested) Source: [facility] POWERCHART Document Id: [id number] documented in this encounter Plan of Treatment Not on filedocumented as of this encounter Visit Diagnoses Not on filedocumented in this encounter Additional Health Concerns Assessment Noted Time PHQ-9 Depression Total Score: 2 03/08/2015 11:16 AM CS T documented as of this encounter
--- OUTSIDE RECORDS SUMMARY | 2021-12-18 08:09 | XMS_ITS | Encounter Summary ---
:1940 Author Organization [facility] Address [address] [place] [address] Care Team Providers Name Role Phone Unavailable Primary Care Provider Unavailable Encounter Details Date Type Department Care Team Description 03/23/2015 - Hospital Encounter HX [facility] Ana Rosa English, 03/24/2015 ALEX Antonio [address] [place] [id number] Social History Tobacco Use Types Packs/Day Years Used Date Smoking Tobacco: Never Assessed Sex Assigned at Date Recorded Not on file documented as of this encounter Last Filed Vital Signs Vital Sign Reading Time Taken Comments Blood Pressure 134/82 03/24/2015 8:13 AM ICE CREAM MAKER Pulse 105 03/24/2015 8:13 AM ICE CREAM MAKER Temperature - - Respiratory Rate 16 03/24/2015 7:17 AM ICE CREAM MAKER Oxygen Saturation - - Inhaled Oxygen Concentration - - Weight 70.5 kg (155 lb 6.8 oz) 03/24/2015 4:10 AM ICE CREAM MAKER Height 167 cm (5' 5.75) 03/24/2015 8:13 AM ICE CREAM MAKER Body Mass Index 25.28 03/24/2015 4:10 AM ICE CREAM MAKER documented in this encounter Discharge Summaries Laine [...] DAY PA-C On: 04/17/2015 12:31 PM Source: [facility] ResiModel Document Id: [id number] CREAM MAKER Owen Vega, RLaraN. - 03/24/2015 10:21 AM CST Discharge Summary Discharge Summary Entered On: 03/24/2015 10:22 ICE CREAM MAKER Performed On: 03/24/2015 10:21 ICE CREAM MAKER by OWEN VEGA RN [place] Information Discharged to : Home independently, Home with family care Current Home Treatments : Wound half-way Equipment : Other: sling Professional Skilled Services : None Special Services and Community Resources : None Mode of Discharge : Wheelchair Discharge Transportation : Private vehicle Accompanied By : Nurse Date/Time of Discharge : 03/24/2015 10:22 ICE CREAM MAKER OWEN VEGA RN - 03/24/2015 10:21 ICE CREAM MAKER Valuables/Belongings Belongings Sent Home With : jessica patient OWEN VEGA RN - 03/24/2015 10:21 ICE CREAM MAKER Source: [facility] POWERCHART Document Id: [id number] ICE CREAM MAKER!13 CREAM MAKER documented in this encounter Medications at [...] Therapy Initial Evaluation Entered On: 03/24/2015 9:47 ICE CREAM MAKER Performed On: 03/24/2015 9:42 ICE CREAM MAKER by AMAIRANI MCKOY PT General Info Reason for Referral to Physical Therapy : Decreased safety, Pain, Patient/Caregiver education Physical Therapy Orders : Physical Therapy Evaluate & Treat - 03/23/15 12:16:00 ICE CREAM MAKER, Post Op therapy, s/p TSA Precautions to Rehabilitation Treatment : s/p rTSA, ostoeporosis Pain Symptoms : No Orientation : Oriented x 3 Safety/Judgment : Impaired Basic Command Following : Impaired AMAIRANI MCKOY PT - 03/24/2015 9:42 ICE CREAM MAKER Musculoskeletal PT Range of Motion Grid Left Upper Extremity : Active Within Normal Limits Right Upper Extremity : Other AMAIRANI MCKOY PT - 03/24/2015 9:42 ICE CREAM MAKER Right UE Range of Motion Detailed : flex 0-90, ER to neutral. , wrist/hand /elbow WFL Left Upper Extremity Strength : Other: WFL for bed mob and transfer Right Upper Extremity Strength : Other: held due to surgical precautions AMAIRANI MCKOY PT - 03/24/2015 9:42 ICE CREAM MAKER Balance/Mobility Sitting/Standing Balance Grid Sitting Balance : Good Standing Balance : Good AMAIRANI MCKOY PT - 03/24/2015 9:42 ICE CREAM MAKER Neuro Coordination : Normal AMAIRANI MCKOY PT - 03/24/2015 9:42 ICE CREAM MAKER Assessment Rehabilitation Potential : Good PT Problem List : Pain limiting function, Strength/Range of motion deficits PT Clinical Assessment : Pt plans to have family assist at home and follow up with Jose [facility]. Guidelines for shoulder rehab given to pt and . observed HEP and pt's self AROM. AMAIRANI MCKOY PT - 03/24/2015 9:42 ICE CREAM MAKER Goals PT Patient/Caregiver Goal : return home Patient Will Tolerate PROM : Yes AMAIRANI MCKOY PT - 03/24/2015 9:42 ICE CREAM MAKER Plan PT Frequency : Daily, Discontinue PT Duration : One day PT Anticipated Treatments : Therapeutic exercise PT Plan/Goals Established w Pt/Caregiver : Yes AMAIRANI MCKOY PT - 03/24/2015 9:42 ICE CREAM MAKER DC Recommendations Discharge To, Anticipated : Home with family care PT Other Treatment : Yes AMAIRANI MCKOY PT - 03/24/2015 9:42 ICE CREAM MAKER Treatment Therapeutic Activities/Exercise Provided : Yes PT [...] appt. AMAIRANI MCKOY PT - 03/24/2015 9:42 ICE CREAM MAKER Ther Activities/Exercise Therapeutic Exercises Performed : Other: instruction in reverse TSA ex adn precautions but pt has a hard time concentrating. written ex and observed PROM 10reps flex 0-90 without resistance felt at endrange and eR to neutral. AMAIRANI MCKOY PT - 03/24/2015 9:42 ICE CREAM MAKER Education PT Education Grid Topics : Exercise program, Physical Therapy plan of care Individuals Taught : Patient, Spouse Barriers to Learning : Difficulty concentrating Teaching Method : Demonstration, Explanation, Printed materials Teaching Evaluation : Returns demonstrations correctly, Verbalizes understanding AMAIRANI MCKOY PT - 03/24/2015 9:42 ICE CREAM MAKER PT Charge Registration Status - PT : Inpatient: Hospital/TCU Physical Therapy Evaluation Charges : Yes Therapeutic Exercise Minutes : 13 minute(s) Therapeutic Exercise Charges : 1 units AMAIRANI MCKOY PT - 03/24/2015 9:42 ICE CREAM MAKER [facility] POWER[facility] Document Id: [id number] ICE CREAM MAKER!58 CREAM MAKER Grecia Ling APRN, C.N.P., M.S.N. - 03/24/2015 9:21 AM CST Hospital Progress Note (SOAP) Document Contains Addenda Addendum by KAREL CORONEL MD on 24 March 2015 11:35:25 ICE CREAM MAKER Patient has been independently examined by me, [...] Total: 0.6 03/24/15 DIAGNOSTIC RESULTS 23-Mar-2015 12:15 [facility] PROCEDURE: Shoulder 1vw RIGHT COMPARISON: None. [...] view portable; DEACON Sanjuana VELA(R)(CT)Sanjuana(R) 03/23/2015 12:06 ICE CREAM MAKER Electronically Signed By: GRECIA ALEMAN APRN C.N.PLara, M.S.N On: 03/24/2015 09:42 AM Source: [facility] Document Id: [id number] CREAM MAKER Ana Rosa Dodson M.D. - 03/24/2015 7:27 AM CST POD#1 s/p R rTSA Pt doing well this am. Pain controlled with the block. Denies any issues. Ready for PT and looking forward to discharge home. AOx3, NAD R shoulder dressing c/d/i. Able to move fingers and rehab manager but due to block, limited exam. Hgb 12.5 Plan: -Sling, PT -No IR of the shoulder -oral pain meds -Dispo: likely d/c home today with catheter in place. Electronically Signed By: ANA ROSA DODSON MD On: 03/24/2015 07:29 AM Source: [facility] Document Id: [id number] CREAM MAKER documented in this encounter Procedure Notes Brandi Millard RLaraN. - 03/23/2015 6:38 AM CST Preprocedure Checklist Preprocedure Checklist Entered On: 03/23/2015 6:54 ICE CREAM MAKER Performed On: 03/23/2015 6:38 ICE CREAM MAKER by BRANDI MILLARD RN Checklist Last Fluid Intake : 03/23/2015 5:00 ICE CREAM MAKER Last Food Intake : 03/22/2015 18:00 ICE CREAM MAKER Surgical Preparation : N/A BRANDI MILLARD RN - 03/23/2015 6:38 ICE CREAM MAKER Surgery Prep Grid Contacts/Glasses Removed : Yes Dentures Removed : Yes (Comment: partial lower, full upper [BRANDI MILLARD RN - 03/23/2015 6:38 ICE CREAM MAKER] ) Hairpins/Hairpiecies Removed : NA Hearing Aid Removed : Yes Home Prep Complete : NA Jewelry/Piercing Removed : Yes Makeup/Nail Mauritian Removed : NA Oral Hygiene : NA Preop Scrub AM of Surgery : Yes Preop Scrub Night Prior to Surgery : Yes Prosthesis Removed : NA Tampon Removed : NA Verified - No hair products used : NA Voided yard conductor to procedure : Yes Wearing Patient Gown : Yes BRANDI MILLARD RN - 03/23/2015 6:38 ICE CREAM MAKER Patient Rights Grid Blood Consent Signed : Yes Surgical/Procedure Consent Signed : Yes BRANDI MILLARD RN - 03/23/2015 6:38 ICE CREAM MAKER Family Location : [place] BRANDI MILLARD RN - 03/23/2015 6:38 ICE CREAM MAKER Checklist II Patient Safety Grid Allergy Band on and Verified : Yes (Comment: none [BRANDI MILLARD RN - 03/23/2015 6:38 ICE CREAM MAKER] ) Anesthesia Consult : Yes Band on for Limb Alert : NA Blood Band on and Verified : NA Current ECG in Medical Record : Yes Current H&P in Medical Record : Yes Implants Verified : Yes (Comment: none [BRANDI MILLARD RN - 03/23/2015 6:38 ICE CREAM MAKER] ) Medication Reconciliation on Chart : Yes [...] : BRANDI SALAZAR RN - 03/23/2015 6:38 ICE CREAM MAKER RN Who Verified Site : BRANDI MILLARD RN Physician Who Verified Site : ANA ROSA DODSON MD, TAMMARA RN - 03/23/2015 6:38 ICE CREAM MAKER SORAYA Screening Known Obstructive Sleep Apnea : No - NOT diagnosed with SORAYA SORAYA Score : No qualifying data available. SORAYA Results : No qualifying data available. BRANDI MILLARD RN - 03/23/2015 6:38 ICE CREAM MAKER SORAYA Assessment Do you have high blood [...] 3 BRANDI MILLARD RN - 03/23/2015 6:38 ICE CREAM MAKER Advance Directive Advanced Directives : No Advance Directive Additional Information : No TRACEROSAA RN - 03/23/2015 6:38 ICE CREAM MAKER Vital Signs Temperature Core : 36.7 DegC(Converted [...] kg/m2 BRANDI MILLARD RN - 03/23/2015 6:38 ICE CREAM MAKER OR Mds Nurse Checklist Images Present and Correct : Yes Special Equipment Present : Yes Implants Present : Yes Rep Required and Present : Yes Blood Components Present : N/A JOAQUINA CALDERON RN - 03/23/2015 7:30 ICE CREAM MAKER [facility] POWERCHART Document Id: [id number] ICE CREAM MAKER!7 CREAM MAKER documented in this encounter Consult Notes Karel Coronel - 03/23/2015 12:00 AM CST [id number] Patient has undergone a right shoulder rotator [...] risk assessment done by a Laila Loco, [facility] in [place] (outside of [facility]). Has quit taking his aspirin 5 [...] CORONEL MD On: 03/23/2015 03:24 PM Source: [facility] MHSDOLBEYNONRADSYS Document Id: [id number] CREAM MAKER documented in this encounter Nursing Notes Alex Colon, SammySShukri - 03/24/2015 9:51 AM CST Manager Assembly/Discharge Planning Manager Assembly/Discharge Planning Entered On: 03/24/2015 10:13 ICE CREAM MAKER Performed On: 03/24/2015 9:51 ICE CREAM MAKER by ALEX COLON Assessment Manager Assembly Needs : Manager Assembly Assessment Follow in Interdisciplinary Team : Yes Referral : Auto Information Obtained From : Patient Languages : Venezuelan Mental Status : Alert ALEX COLON - 03/24/2015 9:51 ICE CREAM MAKER Advance Directive Advanced Directives : No Advance Directive Additional Information : No ALEX COLON - 03/24/2015 9:51 ICE CREAM MAKER Psychosocial Domestic Abuse Concerns : None Safe Place to Go : Yes Agency Notified of Domestic Concerns : None Marital Status : Years of Marriage : Astrid [phone] Number of Children : 4 kids: Yuval Peng and Jesus [facility] Emotional Support Available : Yes Behavioral Health Screen/Safety Assmt : No Congregational Preference : [place] COLONИВАНALEX M [facility] 03/24/2015 9:51 ICE CREAM MAKER Dependent Habits Tobacco Use/Currently Using : No Exposure to Tobacco Smoke : Other: former Smoking Status : Unknown if ever smoke RYLIEPHILIPPИВАНALEX M [facility] 03/24/2015 9:51 ICE CREAM MAKER Tobacco Use Grid Other Tobacco Frequency : no ALEX COLON [facility] 03/24/2015 9:51 ICE CREAM MAKER Caffeine Use Grid Caffeine Use : Current Type : Coffee Frequency : Daily RYLIEPHILIPP ALEX M [facility] 03/24/2015 9:51 ICE CREAM MAKER DC Needs Plan for Discharge : Pt plans to return home with his Astrid who will be with him upon discharge and will be transporting him. He will do outpt PT at [facility]. Home Equipment, Anticipated : Dressing device RYLIEPHILIPPИВАНALEX M [facility] 03/24/2015 9:51 ICE CREAM MAKER Discharge Planning Discharge Options Discussed with Patient : Discharge transportation, Home Health, Rehabilitation Unit ALEX COLON [facility] 03/24/2015 9:51 ICE CREAM MAKER Source: [facility] POWERCHART Document Id: [id number] ICE CREAM MAKER!38 CREAM MAKER Ankita Lynch RLaraNLara - 03/24/2015 4:12 AM CST Cardiac Monitoring Cardiac Monitoring Entered On: 03/24/2015 4:13 ICE CREAM MAKER Performed On: 03/24/2015 4:12 ICE CREAM MAKER by ANKITA LYNCH RN Cardiac Monitoring Monitoring Lead : III, V1/MCL1 Atrial Rate : 68 bpm Atrial Rhythm : Regular Ventricular Rate : 68 bpm Ventricular Rhythm : Regular WA Interval : 0.19 P to QRS Ratio : 1:1 QRS Duration : 0.08 second(s) QT Interval : 0.40 second(s) WA Consistency : Consistent QRS Consistency : Consistent ST Segment : Isoelectric Ectopy Frequency : None Cardiac Rhythm Tech : Sinus rhythm ANKITA LYNCH RN - 03/24/2015 4:12 ICE CREAM MAKER Source: [facility] Document Id: [id number] ICE CREAM MAKER!16 CREAM MAKER Alma Teixeira R.N. - 03/24/2015 3:24 AM CST PRN Response PRN Response Entered On: 03/24/2015 3:24 ICE CREAM MAKER Performed On: 03/24/2015 3:24 ICE CREAM MAKER by ALMA TEIXEIRA RN PRN Medication Effectiveness Evaluation PRN Medication Effective : Yes ALMA TEIXEIRA RN - 03/24/2015 3:24 ICE CREAM MAKER Source: [facility] Document Id: [id number] ICE CREAM MAKER!3 CREAM MAKER Ankita Lynch R.N. - 03/24/2015 12:05 AM CST Cardiac Monitoring Document Has Been Updated Cardiac Monitoring Entered On: 03/24/2015 2:53 ICE CREAM MAKER Performed On: 03/24/2015 0:05 ICE CREAM MAKER by ANKITA LYNCH RN Cardiac Monitoring Monitoring Lead : III, V1/MCL1 Atrial Rate : 84 bpm Atrial Rhythm : Regularly irregular Ventricular Rate : 84 bpm Ventricular Rhythm : Regularly irregular WA Interval : 0.18 P to QRS Ratio : 1:1 QRS Duration : 0.07 second(s) QT Interval : 0.39 second(s) WA Consistency : Consistent QRS Consistency : Consistent ST Segment : Isoelectric Ectopy Frequency : None Cardiac Rhythm Tech : Sinus arrhythmia ANKITA LYNCH RN - 03/24/2015 2:56 ICE CREAM MAKER Source: [facility] Document Id: [id number] ICE CREAM MAKER!16 CREAM MAKER Gena Gonzalez R.N. - 03/23/2015 8:00 PM CST Cardiac Monitoring Cardiac Monitoring Entered On: 03/23/2015 20:10 ICE CREAM MAKER Performed On: 03/23/2015 20:00 ICE CREAM MAKER by GENA GONZALEZ RN Cardiac Monitoring Monitoring Lead : III, V1/MCL1 Atrial Rate : 95 bpm Atrial Rhythm : Regular Ventricular Rate : 95 bpm Ventricular Rhythm : Regular WA Interval : 0.19 QRS Duration : 0.07 second(s) QT Interval : 0.34 second(s) Ectopy Frequency : None Cardiac Rhythm Tech : Sinus rhythm GENA GONZALEZ RN - 03/23/2015 20:09 ICE CREAM MAKER [facility] Document Id: [id number] ICE CREAM MAKER!12 CREAM MAKER Daria Sousa R.N. - 03/23/2015 2:04 PM CST Cardiac Monitoring Cardiac Monitoring Entered On: 03/23/2015 14:15 ICE CREAM MAKER Performed On: 03/23/2015 14:04 ICE CREAM MAKER by DARIA SOUSA RN Cardiac Monitoring Monitoring Lead : III Monitoring Lead Technology Training Associate : Initiated Atrial Rate : 61 bpm Atrial Rhythm : Regular Ventricular Rate : 61 bpm Ventricular Rhythm : Regular WA Interval : 0.22 P to QRS Ratio : 1:1 QRS Duration : 0.07 second(s) QT Interval : 0.45 second(s) (Comment: qtc 0.44 [DARIA SOUSA RN - 03/23/2015 14:14 ICE CREAM MAKER] ) WA Consistency : Consistent QRS Consistency : Consistent ST Segment : Isoelectric Ectopy Frequency : None Cardiac Rhythm Tech : First degree heart block DARIA SOUSA RN - 03/23/2015 14:14 ICE CREAM MAKER [facility] Document Id: [id number] ICE CREAM MAKER!17 CREAM MAKER Conversion, Historical Provider Ser - 03/23/2015 10:31 AM CST RWHO Main OR Nursing Record RWHO Main OR Nursing Record Summary Primary Physician: ANA ROSA DODSON MD Finalized Date/Time: 03/23/15 14:54:24 Pt. Name: RYLEY DURÁN /Sex: 1940 Male Med Rec #: [id number] Physician: ANA ROSA DODSON MD Financial #: [id number] Pt. Type: I Room/Bed: [facility] Admit/Disch: 03/23/15 06:16:56 - Institution: Allergies identified [...] HODGE MD, RN Role Performed Surgeon, Primary Carving Machine Operator, First RN Mds Nurse - Primary Time In 03/23/15 08:00:00 03/23/15 [...] Scrub, First Certified Registered Student Registered Nurse Fuller Brush Man Nurse Fuller Brush Man Time In 03/23/15 08:00:00 03/23/15 08:00:00 03/23/15 08:00:00 Time Out 03/23/15 10:55:00 03/23/15 10:55:00 03/23/15 10:55:00 Relief? No No No See Anesthesia Record for Additional Attendees and Relief Times Last Modified By: JOAQUINA CALDERON RN, CHARLES RN RITMIRE, CHARLES RN 03/23/15 13:20:48 03/23/15 13:20:48 03/23/15 13:20:48 Entry 7 Entry 8 Entry 9 Case Attendee LAINE DAY PA-C, HARESH SANTOS RN Role Performed Carving Machine Operator, First Transcripter RN Mds Nurse - Primary Time In 03/23/15 08:00:00 03/23/15 [...] RN 03/23/15 08:50:55 Cautery Entry 1 CauteryType [facility] I.D. Number [id number] Coag Setting 50 Cut Setting 50 Grounding [...] 15MM INVERSE REVERSE Misc Shoulder Implants POS [id number] CANCELLOUS SCREW 4.5 X 18MM 23.018 Implant Site Right Shoulder Right Shoulder Right Shoulder Motor Vehicle Salesperson Lisa Lisa Lisa Catalog # [id number] .030 (Motor Vehicle Salesperson Item Number) Lot Number or [id number] Serial Number/ Hospital Load Number Size 15mm 18mm 30mm Quantity 1 1 1 Expiration Date Last Modified By: JOAQUINA CALDERON RN, CHARLES RN RITMIRE, CHARLES RN 03/23/15 14:45:08 03/23/15 14:45:08 03/23/15 14:45:08 Entry 4 Entry 5 Entry 6 Implant Identification Implant Description TM REVERSE 36MM Misc Shoulder Implants TM REVERSE 36MM POLY GLENOSPHERE LINER +0MM [id number] Implant Site Right Shoulder Right Shoulder Right Shoulder Motor Vehicle Salesperson Lisa Lisa Lisa Catalog # [id number] (Motor Vehicle Salesperson Item Number) Lot Number or [id number] Serial Number/ Hospital Load Number Size 36mm [...] Final Count Sponges Count Yes Yes Correct? [place] Yes Yes Count Correct? Instrument Count Yes [...] Unfinalizing Freetext Reason for Unfinalizing 03/23/15 14:44 [id number] Finish Documentation 03/23/15 14:50 [id number] Modify Pick List 03/23/15 14:53 [id number] Modify Pick List Source: [facility] POWERCHART Document Id: [id number] Brandi Millard RLaraNLara - 03/23/2015 6:38 AM CST Influenza Immunization Asmt Influenza Immunization Asmt Entered On: 03/23/2015 6:55 ICE CREAM MAKER Performed On: 03/23/2015 6:38 ICE CREAM MAKER by BRANDI MILLARD RN Influenza Protocol Influenza Vaccine Exclusions : Patient has none of the below exclusions Influenza Patient Wants Vaccine : No - Refused/Order not placed BRANDI MILLARD RN - 03/23/2015 6:38 ICE CREAM MAKER Source: [facility] Document Id: [id number] ICE CREAM MAKER!4 CREAM MAKER documented in this encounter OR Notes Op [...] BURT MD On: 03/24/2015 02:13 PM Source: [facility] Document Id: [id number] CREAM MAKER Op Note - Iva Rader APRN, CRNA [...] RADER CRNA On: 03/23/2015 11:37 AM Source: [facility] Document Id: [id number] CREAM MAKER Op Note - Sangita Patiño CRNA - [...] PATIÑO CRNA On: 03/23/2015 07:39 AM Source: [facility] POWERCHART Document Id: [id number] CREAM MAKER Op Note - Ana Rosa Dodson M.D. - 03/23/2015 12:00 AM CST [id number] PREOPERATIVE DIAGNOSIS Right shoulder rotator cuff arthropathy. POSTOPERATIVE DIAGNOSIS Right shoulder rotator cuff arthropathy. PROCEDURE Right reverse total shoulder arthroplasty. IMPLANTS Lisa 15 mm post length trabecular metal base plate with a 36 Glenosphere, a 12 x 130 trabecular metal humeral stem with a 0 x 36 mm poly liner. SURGEON Ana Rosa Dodson MD BARKEEPER SURGEON Brant Lazo MD. I requested Dr. [...] and safe transport from the operative suite. BARKEEPER Laine Day PA-C. I requested Laine to [...] DODSON MD On: 03/23/2015 12:40 PM Source: [facility] MHSDOLBEYNONRADSYS Document Id: [id number] CREAM MAKER Op Note - Paul Burt M.D. - [...] MEDICAL/PROBLEM HISTORY weight 69 kg CAD s/p [place] 2011- s/p SHAHAB middle RCA 2011 echo [...] BURT MD On: 03/21/2015 02:18 PM Source: [facility] Document Id: [id number] CREAM MAKER documented in this encounter Miscellaneous Notes Miscellaneous - Conversion, Historical Provider Ser - 03/24/2015 10:21 AM ICE CREAM MAKER Coding Summary-Paper Based CODING DATE: 04/04/2015 FINAL [facility] STATUS: * Discharged to Home [...] SECONDARY: I25.10 Y Atherosclerotic heart disease of [place] coronary artery without angina pectoris R00.1 Y Bradycardia, unspecified M35.3 Y Polymyalgia rheumatica E78.5 Y Hyperlipidemia, unspecified I10 Y Essential (primary) hypertension K21.9 Y Gastro-esophageal reflux disease without esophagitis Z87.891 Personal history of nicotine dependence Z98.61 Coronary angioplasty status Z79.82 intermediate card tender (current) use of aspirin PROCEDURES DOCTOR NAME DATE [id number] Replacement of Right Shoulder ANA ROSA DODSON 03/23/2015 Joint with Reverse Ball and Socket Synthetic Substitute, Open Approach NOTE: The code number assigned matches the documented diagnosis and / or procedure in the patient's chart. However, the narrative phrase printed from the coding software may appear abbreviated, or result in slightly different terminology. Coded By: BALAJI DESOUZA Date Saved: 04/04/2015 12:12 pm Source: [facility] POWERCHART Document Id: [id number] Miscellaneous - Owen Vega R.N. - 03/24/2015 [...] at security quinones with metal detectors. ?? [id number] [facility], [address] [place] [address], [place] [address]. All rights reserved. This information is not [...] about how you use yournew shoulder. ?? [phone] [facility], [address] [place] [address]. All rights reserved. This information is not intended as a substitute for professional medical care. Always follow your healthcare professional's instructions. This document has images extracted. Please consider using Cardiovascular Simulation for all your patient education needs. Source: [facility] LoopMeCHART Document Id: [id number] CREAM MAKER Rukhsanacellaneous - Jacquie Aranda - 03/24/2015 9:20 AM CST Hospital Patient Education The following Patient Education Materials have been given to the patient: Patient Education Materials: Source: [facility] ResiModel Document Id: [id number] CREAM MAKER Rukhsanacellaneous - Owen Vega, RLaraN. - 03/24/2015 9:15 AM CST Adult Ongoing Assessment Adult Ongoing Assessment Entered On: 03/24/2015 9:21 ICE CREAM MAKER Performed On: 03/24/2015 9:15 ICE CREAM MAKER by OWEN VEGA RN Respiratory Respiratory Patient Stated Symptoms : None Respirations : Unlabored Distress : None Respiratory Pattern : Regular All Lobes Breath Sounds : Clear Cough : None Sputum Amount : None Suction : None Airway : Patent OWEN VEGA - 03/24/2015 9:15 ICE CREAM MAKER Cardiovascular CV Patient Stated Symptoms : None Heart Rhythm : Regular Heart Sounds ICU : S1S2 Antiembolism Device Yes/No : Yes Nail Bed Color : [place] Capillary Refill : Less than 2 seconds Edema Assessment : No OWEN VEGA - 03/24/2015 9:15 ICE CREAM MAKER Radial Pulse, Left : 2+ Normal Radial Pulse, Right : 2+ Normal Dorsalis Pedis Pulse, Left : 2+ Normal Dorsalis Pedis Pulse, Right : 2+ Normal OWEN VEGA [facility] 03/24/2015 9:15 ICE CREAM MAKER Skin Color : Normal for ethnicity Skin Description : Dry Activity Tolerance : Minimal distress OWEN VEGA [facility] 03/24/2015 9:15 ICE CREAM MAKER Antiembolism Device Antiembolism Device : Sequential Compression Device Antiembolism Device Laterality : Bilateral Compression Stockings : Knee High Antiembolism Device Status : On OWEN VEGA - 03/24/2015 9:15 ICE CREAM MAKER Neurological Neuro Patient Stated Symptoms : None Orientation : Oriented x 3, Appropriate for age Level of Consciousness : Alert Gait : Steady Swallowing Difficulty/Aspiration Risk : None Last Well Time Known : Not applicable [facility] 03/24/2015 9:15 ICE CREAM MAKER Pierre Coma Eye Opening Response Range : Spontaneously Best Verbal Response Pierre : Oriented Best Motor Response Range : Obeys simple commands Range Coma Score : 15 [facility] 03/24/2015 9:15 ICE CREAM MAKER Oral Assessment Lips : Smooth, pink, moist, intact Gingiva : [place], smooth, moist, intact Tongue : Smooth, pink, moist, intact Teeth : Clean, no debris Saliva : Thin, watery, plentiful [facility] 03/24/2015 9:15 ICE CREAM MAKER Psycho/Emotional Affect/Behavior : Calm, Cooperative, Appropriate Pain Symptoms : No [facility] 03/24/2015 9:15 ICE CREAM MAKER Coping Grid Identifies effective strategies : Yes [...] Yes OWEN VEGA RN - 03/24/2015 9:15 ICE CREAM MAKER Safety Grid Vision, Hearing, Mobility Adequate to Meet Safety Needs : Yes OWEN VEGA RN - 03/24/2015 9:15 ICE CREAM MAKER Gastrointestinal GI Patient Stated Symptoms : None Abdomen Description : Obese, Symmetric Abdomen Palpation : Non-Tender, Soft Bowel Movement Last Date : 03/22/2015 ICE CREAM MAKER Bowel Sounds All Quadrants : Present OWEN VEGA RN - 03/24/2015 9:15 ICE CREAM MAKER Nutrition Appetite : Excellent Eating Difficulties : None Feeding Ability : Complete independence OWEN VEGA RN - 03/24/2015 9:15 ICE CREAM MAKER Genitourinary Patient Stated Symptoms : None Urine Color : Yellow Urine Description : Clear Urine Odor : Odorless Bladder Distention : Absent OWEN VEGA RN - 03/24/2015 9:15 ICE CREAM MAKER Integumentary Integumentary Patient Stated Symptoms : None Skin Integrity : Not intact Mucous Membrane Color : [place] Mucous Membrane Description : Moist OWEN VEGA RN - 03/24/2015 9:15 ICE CREAM MAKER Filing Or Registry Clerk Integumentary - Grid Filing Or Registry Clerk : Sequential Compression Device OWEN VEGA RN - 03/24/2015 9:15 ICE CREAM MAKER Skin Color : Normal for ethnicity Skin Description : Dry Skin Temperature : Warm OWEN VEGA RN - 03/24/2015 9:15 ICE CREAM MAKER Incision/Wound Incision/Wound Care Grid Activity : Assessed Type : Surgical incision Location : Shoulder Laterality : Right Drainage : None Drainage Amount : None Surrounding Tissue : Intact OWEN VEGA RN - 03/24/2015 9:15 ICE CREAM MAKER Hawk Sensory Perception Hawk : No impairment Moisture Hawk : Rarely moist Activity Hawk : Walks occasionally Mobility Hawk : Slightly limited Nutrition Hawk : Excellent Friction and Shear Hawk : No apparent problem Hawk Score : 21 OWEN VEGA RN - 03/24/2015 9:15 ICE CREAM MAKER Musculoskeletal Musculoskeletal Patient Stated Symptoms : None OWEN VGEA RN - 03/24/2015 9:15 ICE CREAM MAKER Musculoskeletal Strength Grid Left Upper Extremity Right Upper Extremity Left Lower Extremity Right Lower Extremity Sensation : Normal Normal Normal Normal OWEN VEGA RN - 03/24/2015 9:15 ICE CREAM MAKER OWEN VEAG RN - 03/24/2015 9:15 ICE CREAM MAKER OWEN VEGA RN - 03/24/2015 9:15 ICE CREAM MAKER OWEN VEGA RN - 03/24/2015 9:15 ICE CREAM MAKER Peripheral IV Peripheral IV Assess/Intervention Grid Peripheral IV #1 Peripheral IV #2 IV Activity : Discontinue Start Number of Attempts : 1 Date of Insertion : 03/23/2015 ICE CREAM MAKER 03/23/2015 ICE CREAM MAKER IV Site : Forearm Antecubital Laterality : Left Left Catheter Size : 20 18 Catheter Type : Protective Site Condition : No complications Drainage Description : None Infiltration Score : 0 Phlebitis Score : 0 OWEN VEGA RN - 03/24/2015 9:15 ICE CREAM MAKER OWEN VEGA RN - 03/24/2015 9:15 ICE CREAM MAKER Hendrich II Fall Risk Confusion/Disorientation Hendrich : [...] 1 OWEN VEGA RN - 03/24/2015 9:15 ICE CREAM MAKER Safe Patient Handling Safe Pt Handling Independent : Yes - No equipment needed Safe Pt Handling Equipment Rec : No Equipment Needed OWEN VEGA RN - 03/24/2015 9:15 ICE CREAM MAKER Education General Patient Education Powergrid Topics : [...] understanding OWEN VEGA RN - 03/24/2015 9:15 ICE CREAM MAKER [facility] POWERCH[facility] Document Id: [id number] ICE CREAM MAKER!162 CREAM MAKER Miscellaneous - Alma Teixeira R.N. - 03/24/2015 3:24 AM CST Adult Ongoing Assessment Adult Ongoing Assessment Entered On: 03/24/2015 3:31 ICE CREAM MAKER Performed On: 03/24/2015 3:24 ICE CREAM MAKER by ALMA TEIXEIRA RN Respiratory Respiratory Patient Stated Symptoms : None Respirations : Unlabored Distress : None Respiratory Pattern : Regular All Lobes Breath Sounds : Clear Cough : None Sputum Amount : None Suction : None Airway : Patent ALMA TEIXEIRA RN - 03/24/2015 3:24 ICE CREAM MAKER Cardiovascular CV Patient Stated Symptoms : None Heart Rhythm : Regular Antiembolism Device Yes/No : Yes Nail Bed Color : [place] Capillary Refill : Less than 2 seconds Edema Assessment : No Monitored Rhythm : Yes Pacer : No Skin Color : Normal for ethnicity Skin Description : Normal Skin Temperature : Warm Activity Tolerance : Moderate distress ALMA TEIXEIRA RN - 03/24/2015 3:24 ICE CREAM MAKER Antiembolism Device Antiembolism Device : Sequential Compression Device Antiembolism Device Laterality : Bilateral Antiembolism Device Status : On ALMA TEIXEIRA RN - 03/24/2015 3:24 ICE CREAM MAKER Neurological Neuro Patient Stated Symptoms : None Orientation : Oriented x 3 Level of Consciousness : Alert Gait : Unable to assess Swallowing Difficulty/Aspiration Risk : None Last Well Time Known : Not applicable ALMA TEIXEIRA RN - 03/24/2015 3:24 ICE CREAM MAKER Range Coma Eye Opening Response Pierre : Spontaneously Best Verbal Response Pierre : Oriented Best Motor Response Pierre : Obeys simple commands Pierre Coma Score : 15 ALMA TEIXEIRA RN - 03/24/2015 3:24 ICE CREAM MAKER Psycho/Emotional Affect/Behavior : Calm, Cooperative, Appropriate Pain Symptoms : No Feels Rested : Yes ALMA TEIXEIRA RN - 03/24/2015 3:24 ICE CREAM MAKER Coping Grid Identifies effective strategies : Yes [...] Yes ALMA TEIXEIRA RN - 03/24/2015 3:24 ICE CREAM MAKER Safety Grid Vision, Hearing, Mobility Adequate to Meet Safety Needs : Yes ALMA TEIXEIRA RN - 03/24/2015 3:24 ICE CREAM MAKER Gastrointestinal Abdomen Description : Flat Abdomen Palpation : Non-Tender Bowel Movement Last Date : 03/22/2015 ICE CREAM MAKER Bowel Sounds All Quadrants : Present Passing Flatus : Yes ALMA TEIXEIRA RN - 03/24/2015 3:24 ICE CREAM MAKER Nutrition Appetite : Good Eating Difficulties : None Feeding Ability : Complete independence ALMA TEIXEIRA RN - 03/24/2015 3:24 ICE CREAM MAKER Genitourinary Patient Stated Symptoms : None Urinary Elimination : Voiding, no difficulties Urine Color : Yellow Urine Description : Clear Urine Odor : Odorless ALMA TEIXEIRA RN - 03/24/2015 3:24 ICE CREAM MAKER Integumentary Skin Color : Normal for ethnicity Skin Description : Normal Skin Temperature : Warm ALMA TEIXEIRA RN - 03/24/2015 3:46 ICE CREAM MAKER Integumentary Patient Stated Symptoms : None Skin Turgor : Elastic Skin Integrity : Not intact Mucous Membrane Color : [place] Mucous Membrane Description : Moist ALMA TEIXEIRA RN - 03/24/2015 3:24 ICE CREAM MAKER Filing Or Registry Clerk Integumentary - Grid Filing Or Registry Clerk : Sequential Compression Device ALMA TEIXEIRA RN - 03/24/2015 3:24 ICE CREAM MAKER Incision/Wound Incision/Wound Care Grid Activity : Assessed Type : Surgical incision Location : Shoulder Laterality : Right Drainage : None ALMA TEIXEIRA RN - 03/24/2015 3:24 ICE CREAM MAKER Hawk Sensory Perception Hawk : No impairment Moisture Hawk : Rarely moist Activity Hawk : Walks occasionally Mobility Hawk : Slightly limited Nutrition Hawk : Adequate Friction and Shear Hawk : No apparent problem Hawk Score : 20 ALMA TEIXEIRA RN - 03/24/2015 3:24 ICE CREAM MAKER Musculoskeletal Musculoskeletal Patient Stated Symptoms : Joint stiffness Activity Tolerance : Minimal distress ALMA TEIXEIRA RN - 03/24/2015 3:24 ICE CREAM MAKER Musculoskeletal Joint Asmt Ultragrid Joint Assessment #1 Location : Shoulder, right Assessment : No abnormalities ALMA TEIXEIRA RN - 03/24/2015 3:24 ICE CREAM MAKER Peripheral IV Peripheral IV Assess/Intervention Grid Peripheral IV #1 Peripheral IV #2 IV Activity : Discontinue Start Number of Attempts : 1 Date of Insertion : 03/23/2015 ICE CREAM MAKER 03/23/2015 ICE CREAM MAKER IV Site : Forearm Antecubital Laterality : Left Left Catheter Size : 20 18 Catheter Type : Protective Infiltration Score : 0 Phlebitis Score : 0 ALMA TEIXEIRA RN - 03/24/2015 3:24 ICE CREAM MAKER ALMA TEIXEIRA RN - 03/24/2015 3:24 ICE CREAM MAKER Hendrich II Fall Risk Confusion/Disorientation Hendrich : [...] 5 ALMA TEIXEIRA RN - 03/24/2015 3:24 ICE CREAM MAKER Safe Patient Handling Safe Pt Handling Independent : No Safe Pt Handling Supervision/Minimal Assistance : Yes - Unmotorized Equipment Safe Pt Handling Equipment Rec : Unmotorized Equipment ALMA TEIXEIRA RN - 03/24/2015 3:24 ICE CREAM MAKER Source: [employer] Document Id: [id number] ICE CREAM MAKER!5 CREAM MAKER Miscellaneous - Tanya Miller RLaraNLara - 03/23/2015 8:46 PM CST Adult Activities of Daily Living Adult Activities of Daily Living Entered On: 03/23/2015 20:49 ICE CREAM MAKER Performed On: 03/23/2015 20:46 ICE CREAM MAKER by TANYA MILLER RN ADLs I Activity [...] Bilateral TANYA MILLER RN - 03/23/2015 20:46 ICE CREAM MAKER ADLs II Bowel Movement Last Date : 03/22/2015 ICE CREAM MAKER Standard Safety : LOUISE/SCD/ED on per policy, Bed alarm ON, Bed in low position, Call device within reach, Gait belt, ID band check, Night light, Non-Slip footwear, Personal safety alarm ON, Rounds every 1 hour, Upper/Half-length side- rails up, Wheels locked TANYA MILLER RN - 03/23/2015 20:46 ICE CREAM MAKER I&O Oral Intake : 200 mL Urine Voided : 300 mL GABRIEL TANYA MICKIE - 03/23/2015 20:46 ICE CREAM MAKER Source: [facility] POWERCHART Document Id: [id number] ICE CREAM MAKER!13 CREAM MAKER Miscellaneous - Tanya Miller R.N. - 03/23/2015 8:21 PM CST Adult Activities of Daily Living Adult Activities of Daily Living Entered On: 03/23/2015 20:23 ICE CREAM MAKER Performed On: 03/23/2015 20:21 ICE CREAM MAKER by TANYA MILLER RN ADLs I Patient Position : Sitting in chair GABRIEL TANYA MICKIE - 03/23/2015 20:21 ICE CREAM MAKER ADLs II Hygiene Assistance Grid Back Rub : Refused Oral Care : Moderate assistance Estefania Care : Independent GABRIEL TANYA MICKIE - 03/23/2015 20:21 ICE CREAM MAKER Bowel Movement Last Date : 03/22/2015 ICE CREAM MAKER Standard Safety : LOUISE/SCD/ED on per policy, Bed in low position, Call device within reach, Chair Alarm, Gait belt, ID band check, Night light, Non-Slip footwear, Personal safety alarm ON, Rounds every1 hour, Upper/Half-length side- rails up GABRIEL TANYA MICKIE - 03/23/2015 20:21 ICE CREAM MAKER I&O Oral Intake : 200 mL Urine Voided : 300 mL GABRIEL [facility] - 03/23/2015 20:21 ICE CREAM MAKER ADLs Adult Nutrition Diet Type : Diet -- 03/23/15 12:16:00 ICE CREAM MAKER, Transition, advance to regular Feeding Assistance : Independent Dinner : 100 % GABRIEL TANYA MICKIE - 03/23/2015 20:21 ICE CREAM MAKER Source: [facility] LoopMeCHART Document Id: [id number] ICE CREAM MAKER!17 CREAM MAKER Rukhsanacellporsha - Tanya Miller R.N. - 03/23/2015 5:00 PM CST Adult Activities of Daily Living Adult Activities of Daily Living Entered On: 03/23/2015 17:01 ICE CREAM MAKER Performed On: 03/23/2015 17:00 ICE CREAM MAKER by TANYA MILLER RN ADLs I Patient Position : Sitting in chair TANYA MILLER RN - 03/23/2015 17:00 ICE CREAM MAKER ADLs II Bowel Movement Last Date : 03/22/2015 ICE CREAM MAKER Standard Safety : LOUISE/SCD/ED on per policy, Bed in low position, Call device within reach, Chair Alarm, Gait belt, ID band check, Night light, Non-Slip footwear, Personal safety alarm ON, Rounds every1 hour, Wheels locked TANYA MILLER RN - 03/23/2015 17:00 ICE CREAM MAKER Source: [facility] [employer]CHART Document Id: [id number] ICE CREAM MAKER!6 CREAM MAKER Miscellaneous - Tanya Miller R.N. - 03/23/2015 4:00 PM CST Adult Postprocedure Assessment Adult Postprocedure Assessment Entered On: 03/23/2015 16:24 ICE CREAM MAKER Performed On: 03/23/2015 16:00 ICE CREAM MAKER by TANYA MILLER RN Vital Signs Temperature Core : 36.3 DegC(Converted to: 97.3 DegF) (LOW) Peripheral Pulse Rate : 61 /min Respiratory Rate : 20 /min Systolic Blood Pressure : 97 mmHg Diastolic Blood Pressure : 52 mmHg NIBP Mean : 67 mmHg (Comment: 64 [TANYA MILLER RN - 03/23/2015 16:22 ICE CREAM MAKER] ) BP Location : Left upper extremity SpO2 : 95 % Oxygen Saturation Monitoring Frequency : Continuous Oxygen Therapy : Room air Height : 167 cm(Converted to: 5 ft 6 inch(es)) TANYA MILLER RN - 03/23/2015 16:22 ICE CREAM MAKER General Level of Consciousness : Alert Orientation : Oriented x 3 Skin Color : Normal for ethnicity Skin Description : Dry Skin Temperature : Warm Pain Symptoms : No TANYA MILLER RN - 03/23/2015 16:22 ICE CREAM MAKER Incision/Wound Incision/Wound Care Grid Activity : Assessed Type : Surgical incision Location : Shoulder Laterality : Right Drainage Amount : None Wound Dressing : Other: Aqua cell and sling TANYA MILLER RN - 03/23/2015 16:22 ICE CREAM MAKER Source: [facility] POWERCHART Document Id: [id number] ICE CREAM MAKER!29 CREAM MAKER Miscellaneous - Tanya Miller R.N. - 03/23/2015 3:45 PM CST Adult Postprocedure Assessment Adult Postprocedure Assessment Entered On: 03/23/2015 16:22 ICE CREAM MAKER Performed On: 03/23/2015 15:45 ICE CREAM MAKER by TANYA MILLER RN Vital Signs Height : 167 cm(Converted to: 5 ft 6 inch(es)) TANYA MILLER RN - 03/23/2015 15:45 ICE CREAM MAKER General Level of Consciousness : Alert Orientation : Oriented x 3 Skin Color : Normal for ethnicity Skin Description : Dry Skin Temperature : Warm Pain Symptoms : No GABRIEL TANYA MICKIE - 03/23/2015 15:45 ICE CREAM MAKER Cardiovascular Heart Rhythm : Regular Nail Bed Color : [place] Edema Assessment : No Capillary Refill : Less than 2 seconds TANYA MILLER RN - 03/23/2015 15:45 ICE CREAM MAKER Radial Pulse, Left : 2+ Normal Radial Pulse, Right : 2+ Normal Dorsalis Pedis Pulse, Left : 2+ Normal Dorsalis Pedis Pulse, Right : 2+ Normal TANYA MILLRE RN - 03/23/2015 15:45 ICE CREAM MAKER Antiembolism Device : Sequential Compression Device Antiembolism Device Laterality : Bilateral TANYA MILLER RN - 03/23/2015 15:45 ICE CREAM MAKER Respiratory Respiratory Patient Stated Symptoms : None Incentive Spirometry Volume Achieved : 2,200 mL Respirations : Unlabored Distress : None Respiratory Pattern : Regular All Lobes Breath Sounds : Clear Cough and Deep Breathe : Done Cough : None Sputum Amount : None TANYA MILLER RN - 03/23/2015 15:45 ICE CREAM MAKER Incentive Spirometry Incentive Spirometry Volume Achieved : 2,200 mL Incentive Spirometry Times Performed : 5 Incentive Spirometry Patient Effort : Good Pt Participation in Treatment - IS : Cooperative Cough and Deep Breathe : Done Spontaneous Cough : No Cough : None TANYA MILLER RN - 03/23/2015 15:45 ICE CREAM MAKER GI/ Nausea Symptoms : No Nursing Interventions : Patient given oral fluids, Patient given food Passing Flatus : Yes Abdomen Palpation : Non-Tender, Soft Bowel Sounds All Quadrants : Present Abdomen Description : Rounded Urinary Elimination : Voiding, no difficulties Urine Color : Yellow REYNA, October03/23/2015 15:45 ICE CREAM MAKER Integumentary Integumentary Patient Stated Symptoms : None Skin Turgor : Elastic Skin Integrity : Not intact Mucous Membrane Color : [place] Mucous Membrane Description : Moist REYNA, October03/23/2015 15:45 ICE CREAM MAKER Filing Or Registry Clerk Integumentary - Grid Filing Or Registry Clerk : Sequential Compression Device Assessment/Action : Removed and reapplied Skin Appearance : Normal [facility], October03/23/2015 15:45 ICE CREAM MAKER Skin Color : Normal for ethnicity Skin Description : Dry Skin Temperature : Warm , October03/23/2015 15:45 ICE CREAM MAKER Incision/Wound Incision/Wound Care Grid Activity : Assessed Type : Surgical incision Location : Shoulder Laterality : Right Drainage : None Wound Dressing : Other: Aqua cell / sling in place with pillow support to elbow [facility], October03/23/2015 15:45 ICE CREAM MAKER Peripheral IV Peripheral IV Assess/Intervention Grid Peripheral IV #1 Peripheral IV #2 IV Activity : Discontinue Start Number of Attempts : 1 Date of Insertion : 03/23/2015 ICE CREAM MAKER 03/23/2015 ICE CREAM MAKER IV Site : Forearm Antecubital Laterality : Left Left Catheter Size : 20 18 Catheter Type : Protective Infiltration Score : 0 Phlebitis Score : 0 [facility], October03/23/2015 15:45 ICE CREAM MAKER [facility], October03/23/2015 15:45 ICE CREAM MAKER I&O Oral Intake : 200 mL Urine Voided : 400 mL [facility], October03/23/2015 15:45 ICE CREAM MAKER Nutrition Dinner : 100 % [facility], October03/23/2015 15:45 ICE CREAM MAKER Lower Extremity Lower Extremity Central Pulses Grid Femoral Pulse, Left : 2+ Normal Femoral Pulse, Right : 2+ Normal [facility], October03/23/2015 15:45 ICE CREAM MAKER Lower Extremity Peripheral Pulses Grid Popliteal Pulse, Left : 2+ Normal Popliteal Pulse, Right : 2+ Normal Posttibial Pulse, Left : 2+ Normal Posttibial Pulse, Right : 2+ Normal Dorsalis Pedis Pulse, Left : 2+ Normal Dorsalis Pedis Pulse, Right : 2+ Normal [facility], October03/23/2015 15:45 ICE CREAM MAKER Upper Extremity Nail Bed Color Hands Grid Left Hand : [place] Right Hand : [place] GABRIEL, October03/23/2015 15:45 ICE CREAM MAKER Capillary Refill Hand Grid Left Hand : < 2 seconds Right Hand : < 2 seconds GABRIEL, October03/23/2015 15:45 ICE CREAM MAKER Upper Extremity Color Grid Left : [place] Right : [place] GABRIEL, October03/23/2015 15:45 ICE CREAM MAKER Upper Extremity Temperature Grid Left : Warm Right : Warm GABRIEL, October03/23/2015 15:45 ICE CREAM MAKER NV Upper Extremity Pulses Grid Radial Pulse, Left : 2+ Normal Radial Pulse, Right : 2+ Normal Brachial Pulse, Left : 2+ Normal Brachial Pulse, Right : 2+ Normal GABRIEL, October03/23/2015 15:45 ICE CREAM MAKER NV Upper Extremity Sensation Grid Dorsal Web Space Thumb/Index Finger Right : Numbness Distal Fat Pad/Small Finger Right : Numbness Distal Fat Pad/Index Finger Right : Numbness GABRIEL, October03/23/2015 15:45 ICE CREAM MAKER Activity Activity Status ADL : Ambulating in malone, Ambulating in room, Bathroom privileges, Up to chair, Up with assistance Activity Assistance : Moderate 1 person assistance Assistive Device : Gait belt, Other: sling in place Positioning/Pressure Reducing Devices : Pillow GABRIEL, October03/23/2015 15:45 ICE CREAM MAKER Vale Vale Agitation Sedation Scale (RASS) : Alert and calm RASS Score : 0 HUGOOctober03/23/2015 15:45 ICE CREAM MAKER Hawk Sensory Perception Hawk : No impairment Moisture Hawk : Rarely moist Activity Hawk : Walks occasionally Mobility Hawk : Slightly limited Nutrition Hawk : Adequate Friction and Shear Hawk : No apparent problem Hawk Score : 20 REYNAOctober03/23/2015 15:45 ICE CREAM MAKER Hendrich II Fall Risk Confusion/Disorientation Hendrich : [...] Score Hendrich II : 5 October03/23/2015 15:45 ICE CREAM MAKER Safe Patient Handling Safe Pt Handling Independent : Yes - No equipment needed Safe Pt Handling Equipment Rec : No Equipment Needed HUGOOctober03/23/2015 15:45 ICE CREAM MAKER Education General Patient Education Power[employer] Topics : [...] understanding TANYA MILLER RN - 03/23/2015 15:45 ICE CREAM MAKER Source: [facility] POWERCHART Document Id: [id number] ICE CREAM MAKER!165 CREAM MAKER Miscellaneous - Radha Younger R.N. - 03/23/2015 1:15 PM CST Adult Postprocedure Assessment Adult Postprocedure Assessment Entered On: 03/23/2015 13:21 ICE CREAM MAKER Performed On: 03/23/2015 13:15 ICE CREAM MAKER by RADHA YOUNGER RN Vital Signs Height : 167 cm(Converted to: 5 ft 6 inch(es)) RADHA YOUNGER RN - 03/23/2015 13:15 ICE CREAM MAKER General Level of Consciousness : Alert Orientation : Appropriate for age Skin Color : Normal for ethnicity Skin Description : Dry Skin Temperature : Warm Pain Symptoms : No RADHA YOUNGER RN - 03/23/2015 13:15 ICE CREAM MAKER Cardiovascular Heart Rhythm : Regular Nail Bed Color : [place] Edema Assessment : No Capillary Refill : Less than 2 seconds RADHA YOUNGER RN - 03/23/2015 13:15 ICE CREAM MAKER Radial Pulse, Left : 2+ Normal Radial [...] Normal RADHA YOUNGER RN - 03/23/2015 13:15 ICE CREAM MAKER Central Pulses Grid Carotid Pulse, Left : 2+ Normal Carotid Pulse, Right : 2+ Normal Femoral Pulse, Left : 2+ Normal Femoral Pulse, Right : 2+ Normal RADHA YOUNGER - 03/23/2015 13:15 ICE CREAM MAKER Antiembolism Device : Sequential Compression Device Antiembolism Device Laterality : Bilateral CARISA RADHA - 03/23/2015 13:15 ICE CREAM MAKER Respiratory Respiratory Patient Stated Symptoms : None Distress : None Respiratory Pattern : Regular All Lobes Breath Sounds : Clear Cough and Deep Breathe : Done Cough : None Sputum Color : Clear Suction : None Airway : Patent RADHA YOUNGER - 03/23/2015 13:15 ICE CREAM MAKER Incentive Spirometry Incentive Spirometry Patient Effort : Good Pt Participation in Treatment - IS : Cooperative Cough and Deep Breathe : Done Spontaneous Cough : Yes Cough : None RADHA YOUNGER - 03/23/2015 13:15 ICE CREAM MAKER GI/ Nausea Symptoms : No RADHA YOUNGER - 03/23/2015 13:15 ICE CREAM MAKER Integumentary Integumentary Patient Stated Symptoms : None Skin Turgor : Elastic Skin Integrity : Not intact Mucous Membrane Color : [place] Mucous Membrane Description : Moist Skin Color : Normal for ethnicity Skin Description : Dry Skin Temperature : Warm RADHA YOUNGER - 03/23/2015 13:15 ICE CREAM MAKER Incision/Wound Incision/Wound Care Grid Activity : Assessed Type : Surgical incision Location : Shoulder Laterality : Right RADHA YOUNGER - 03/23/2015 13:15 ICE CREAM MAKER Peripheral IV Peripheral IV Assess/Intervention Grid Peripheral IV #1 Peripheral IV #2 IV Activity : Discontinue Start Number of Attempts : 1 Date of Insertion : 03/23/2015 ICE CREAM MAKER 03/23/2015 ICE CREAM MAKER IV Site : Forearm Antecubital Laterality : Left Left Catheter Size : 20 18 Catheter Type : Protective Site Condition : No complications RADHA YOUNGER - 03/23/2015 13:15 ICE CREAM MAKER RADHA YOUNGER - 03/23/2015 13:15 ICE CREAM MAKER Upper Extremity Nail Bed Color Hands Grid Left Hand : [place] Right Hand : [place] RADHA YOUNGER - 03/23/2015 13:15 ICE CREAM MAKER Capillary Refill Hand Grid Left Hand : < 2 seconds Right Hand : < 2 seconds RADHA YOUNGER - 03/23/2015 13:15 ICE CREAM MAKER Upper Extremity Color Grid Left : [place] Right : [place] RADHA YOUNGER - 03/23/2015 13:15 ICE CREAM MAKER Upper Extremity Temperature Grid Left : Warm Right : Warm RADHA YOUNGER - 03/23/2015 13:15 ICE CREAM MAKER NV Upper Extremity Sensation Grid Dorsal Web Space Thumb/Index Finger Right : Numbness Distal Fat Pad/Small Finger Right : Numbness Distal Fat Pad/Index Finger Right : Numbness RADHA YOUNGER RN - 03/23/2015 13:15 ICE CREAM MAKER Activity Patient Position : Elevate head of bed 30 degrees, Sitting in bed Activity Status ADL : Reposition every 2 hours, Up with assistance Activity Assistance : Moderate 1 person assistance Assistive Device : Gait belt RADHA YOUNGER - 03/23/2015 13:15 ICE CREAM MAKER Modified Elenita Activity : Moves 4 extremities voluntarily or on command Respiratory : Able to deep breathe and cough freely Circulation : BP 20-49% of preanesthetic level Consciousness : Fully awake O2 Saturation : Needs oxygen to maintain > 92% Elenita l Score : 8 RADHA YOUNGER RN - 03/23/2015 13:15 ICE CREAM MAKER PARSAP Activity Status : Moves 4 extremities [...] 19 RADHA YOUNGER RN - 03/23/2015 13:15 ICE CREAM MAKER [place] Agitation Sedation Scale (RASS) : Alert and calm RASS Score : 0 RADHA YOUNGER - 03/23/2015 13:15 ICE CREAM MAKER Hawk Sensory Perception Hawk : No impairment Moisture Hawk : Rarely moist Activity Hawk : Walks occasionally Mobility Hawk : Slightly limited Nutrition Hawk : Adequate Friction and Shear Hawk : No apparent problem Hawk Score : 20 RADHA YOUNGER - 03/23/2015 13:15 ICE CREAM MAKER Hendrich II Fall Risk Confusion/Disorientation Hendrich : [...] : 4 RADHA YOUNGER - 03/23/2015 13:15 ICE CREAM MAKER Safe Patient Handling Safe Pt Handling Independent : No Safe Pt Handling Supervision/Minimal Assistance : Yes - Unmotorized Equipment Safe Pt Handling Equipment Rec : Unmotorized Equipment RADHA YOUNGER RN - 03/23/2015 13:15 ICE CREAM MAKER Education General Patient Education Powergrid Topics : Pain Management, Safety, fall RADHA YOUNGER RN - 03/23/2015 13:15 ICE CREAM MAKER Source: [facility] POWERCHART Document Id: [id number] ICE CREAM MAKER!154 CREAM MAKER Miscellaneous - Arti Almaguer R.N. - 03/23/2015 12:59 PM CST Adult Postprocedure Assessment Adult Postprocedure Assessment Entered On: 03/23/2015 13:03 ICE CREAM MAKER Performed On: 03/23/2015 12:59 ICE CREAM MAKER by ARTI ALMAGUER RN Vital Signs Temperature [...] inch(es)) ARTI ALMAGUER RN - 03/23/2015 12:59 ICE CREAM MAKER General Level of Consciousness : Alert Orientation : Oriented x 3 Skin Color : Normal for ethnicity Skin Description : Normal Skin Temperature : Warm Pain Symptoms : No (Comment: Denies pain [ARTI ALMAGUER RN - 03/23/2015 12:59 ICE CREAM MAKER] ) ARTI ALMAGUER RN - 03/23/2015 12:59 ICE CREAM MAKER Upper Extremity Nail Bed Color Hands Grid Left Hand : [place] Right Hand : [place] ARTI ALMAGUER RN - 03/23/2015 12:59 ICE CREAM MAKER Capillary Refill Hand Grid Left Hand : < 2 seconds Right Hand : < 2 seconds ARTI ALMAGUER RN - 03/23/2015 12:59 ICE CREAM MAKER Upper Extremity Color Grid Left : [place] Right : [place] ARTI ALMAGUER RN - 03/23/2015 12:59 ICE CREAM MAKER Upper Extremity Temperature Grid Left : Warm Right : Warm ARTI ALMAGUER RN - 03/23/2015 12:59 ICE CREAM MAKER NV Upper Extremity Sensation Grid Dorsal Web Space Thumb/Index Finger Right : Numbness (Comment: due to block [ARTI ALMAGUER RN - 03/23/2015 12:59 ICE CREAM MAKER] ) Distal Fat Pad/Small Finger Right : Numbness (Comment: due to block [ARTI ALMAGUER RN - 03/23/2015 12:59 ICE CREAM MAKER] ) Distal Fat Pad/Index Finger Right : Numbness (Comment: due to block [ARTI ALMAGUER RN - 03/23/2015 12:59 ICE CREAM MAKER] ) ARTI ALMAGUER RN - 03/23/2015 12:59 ICE CREAM MAKER Source: [facility] LoopMeCHART Document Id: [id number] ICE CREAM MAKER!37 CREAM MAKER Transfer of Care - Shira Dias R.N. - 03/23/2015 11:58 AM CST Intrahospital Transfer Intrahospital Transfer Entered On: 03/23/2015 11:59 ICE CREAM MAKER Performed On: 03/23/2015 11:58 ICE CREAM MAKER by SHIRA DIAS RN Transfer Intrahospital Transfer Mode : Cart Nurse Receiving Report : pascale CORADO Date/Time Nurse Received Report : 03/23/2015 11:45 ICE CREAM MAKER Reason for Intrahospital Transfer : Improved condition Blood Products Received : No Transfer Notification : Spouse SHIRA DIAS RN - 03/23/2015 11:58 ICE CREAM MAKER Source: [facility] Document Id: [id number] ICE CREAM MAKER!8 CREAM MAKER Miscellaneous - Shira Dias R.N. - 03/23/2015 11:51 AM CST Adult Postprocedure Assessment Adult Postprocedure Assessment Entered On: 03/23/2015 11:58 ICE CREAM MAKER Performed On: 03/23/2015 11:51 ICE CREAM MAKER by SHIRA DIAS RN Vital Signs Height : 167 cm(Converted to: 5 ft 6 inch(es)) SHIRA DIAS RN - 03/23/2015 11:57 ICE CREAM MAKER Incision/Wound Incision/Wound Care Grid Activity : Assessed Type : Surgical incision Location : Shoulder Laterality : Right Drainage : None SHIRA DIAS RN - 03/23/2015 11:57 ICE CREAM MAKER Source: [facility] POWERCHART Document Id: [id number] ICE CREAM MAKER!11 CREAM MAKER Miscellaneous - Shira Dias R.N. - 03/23/2015 10:55 AM CST Adult Postprocedure Assessment Adult Postprocedure Assessment Entered On: 03/23/2015 11:06 ICE CREAM MAKER Performed On: 03/23/2015 10:55 ICE CREAM MAKER by SHIRA DIAS RN Vital Signs Respiratory Rate : 16 /min Oxygen Flow Rate : 2 L/min Oxygen Therapy : Nasal cannula Height : 167 cm(Converted to: 5 ft 6 inch(es)) SHIRA DIAS RN - 03/23/2015 11:02 ICE CREAM MAKER General Level of Consciousness : Drowsy Orientation : Oriented x 3 Skin Color : Normal for ethnicity Skin Description : Dry Skin Temperature : Warm Pain Symptoms : No SHIRA DIAS RN - 03/23/2015 11:02 ICE CREAM MAKER Integumentary Integumentary Patient Stated Symptoms : None Skin Integrity : Not intact SHIRA DIAS RN - 03/23/2015 11:02 ICE CREAM MAKER Incision/Wound Incision/Wound Care Grid Activity : Assessed Type : Surgical incision Location : Shoulder Laterality : Right Drainage : None SHIRA DIAS RN - 03/23/2015 11:02 ICE CREAM MAKER Peripheral IV Peripheral IV Assess/Intervention Grid Peripheral IV #1 Peripheral IV #2 IV Activity : Discontinue Start Number of Attempts : 1 Date of Insertion : 03/23/2015 ICE CREAM MAKER 03/23/2015 ICE CREAM MAKER IV Site : Forearm Antecubital Laterality : Left Left Catheter Size : 20 18 Catheter Type : Protective Site Condition : No complications Comments (Comment: discontinued in OR, positional [SHIRA DIAS RN - 03/23/2015 11:02 ICE CREAM MAKER] ) (Comment: started in OR [SHIRA DIAS RN - 03/23/2015 11:02 ICE CREAM MAKER] ) SHIRA DIAS RN - 03/23/2015 11:02 ICE CREAM MAKER SHIRA DIAS RN - 03/23/2015 11:02 ICE CREAM MAKER I&O Other Intake : 1,400 mL Urine Voided : 300 mL Estimated Blood Loss : 300 mL SHIRA DIAS RN - 03/23/2015 11:02 ICE CREAM MAKER Modified Elenita Activity : Moves 4 extremities voluntarily or on command Respiratory : Able to deep breathe and cough freely Circulation : BP +/- 20% of preprocedural level or not unusually high or low Consciousness : Arouses on calling O2 Saturation : Needs oxygen to maintain > 92% Elenita l Score : 8 SHIRA DIAS RN - 03/23/2015 11:02 ICE CREAM MAKER Source: [employer] Document Id: [id number] ICE CREAM MAKER!52 CREAM MAKER Miscellaneous - Brandi Millard RSelvin - 03/23/2015 6:38 AM CST Adult Admission Assessment Adult Admission Assessment Entered On: 03/23/2015 6:42 ICE CREAM MAKER Performed On: 03/23/2015 6:38 ICE CREAM MAKER by BRANDI MILLARD RN Respiratory Respiratory Patient Stated Symptoms : None Respirations : Unlabored Distress : None Respiratory Pattern : Regular All Lobes Breath Sounds : Clear Cough : None BRANDI MILLARD RN - 03/23/2015 6:38 ICE CREAM MAKER Cardiovascular CV Patient Stated Symptoms : None Antiembolism Device Yes/No : Yes BRANDI MILLARD RN - 03/23/2015 6:38 ICE CREAM MAKER Antiembolism Device Antiembolism Device Laterality : Bilateral BRANDI MILLARD RN - 03/23/2015 6:38 ICE CREAM MAKER Neurological Neuro Patient Stated Symptoms : None Orientation : Oriented x 3 Level of Consciousness : Alert Gait : Steady Swallowing Difficulty/Aspiration Risk : None BRANDI MILLARD RN - 03/23/2015 6:38 ICE CREAM MAKER Range Coma Eye Opening Response Pierre : Spontaneously Best Verbal Response Range : Oriented Best Motor Response Pierre : Obeys simple commands Pierre Coma Score : 15 BRANDI MILLARD RN - 03/23/2015 6:38 ICE CREAM MAKER Psycho/Emotional Pain Symptoms : No BRANDI MILLARD RN - 03/23/2015 6:38 ICE CREAM MAKER Gastrointestinal GI Patient Stated Symptoms : None Bowel Movement Last Date : 03/22/2015 ICE CREAM MAKER BRANDI MILLARD RN - 03/23/2015 6:38 ICE CREAM MAKER Integumentary Skin Integrity : Intact BRANDI MILLARD RN - 03/23/2015 6:38 ICE CREAM MAKER Peripheral IV Peripheral IV Assess/Intervention Grid Peripheral IV #1 IV Activity : Start Number of Attempts : 1 Date of Insertion : 03/23/2015 ICE CREAM MAKER IV Site : Forearm Laterality : Left Catheter Size : 20 BRANDI MILLARD RN - 03/23/2015 7:27 ICE CREAM MAKER Hendrich II Fall Risk Confusion/Disorientation Hendrich : [...] 1 BRANDI MILLARD RN - 03/23/2015 6:38 ICE CREAM MAKER [facility] Document Id: [id number] ICE CREAM MAKER!10 CREAM MAKER Miscellaneous - Brandi Millard R.N. - 03/23/2015 6:38 AM CST Adult Admission History Adult Admission History Entered On: 03/23/2015 6:46 ICE CREAM MAKER Performed On: 03/23/2015 6:38 ICE CREAM MAKER by BRANDI MILLARD RN General Info Preferred Name : Ryley Admitted From : Non-Health Care Facility Point of Origin Mode of Arrival : Ambulatory Accompanied By : Spouse Chief Complaint : right shoulder Preferred Communication Mode : Verbal Information Given By : Patient Languages : Venezuelan Have you received chemotherapy in last 48 hours? : No Is Patient Female and 13-50 no hysterectomy : No BRANDI MILLARD RN - 03/23/2015 6:38 ICE CREAM MAKER Anesth/Transfusion Anesthesia/Transfusions : Prior anesthesia reaction Anesthesia Reaction : Excessive post op nausea Transfusion Acceptable in Emergency : Yes Congregational/Other Objections to Blood Transfusions : No BRANDI MILLARD RN - 03/23/2015 6:38 ICE CREAM MAKER Nutrition Have you recently lost weight without trying? : No Decreased Appetite Nutrition : No Tube Feedings or Parenteral Nutrition : No MST Score : 0 BRANDI MILLARD RN - 03/23/2015 6:38 ICE CREAM MAKER Home Environment Current Daily Living Assistance : None Sensory Deficits : None BRANDI MILLARD RN - 03/23/2015 6:38 ICE CREAM MAKER Dependent Habits Alcohol Use : No BRANDI MILLARD RN - 03/23/2015 6:38 ICE CREAM MAKER Caffeine Use Grid Caffeine Use : Current Type : Coffee Frequency : Daily BRANDI MILLARD RN - 03/23/2015 6:38 ICE CREAM MAKER Psychosocial Adult Domestic Abuse Concerns : None Behavioral Health Screen/Safety Assmt : No Congregational Preference : [employer] BRANDI MILLARD RN - 03/23/2015 6:38 ICE CREAM MAKER Advance Directive Advanced Directives : No Advance Directive Additional Information : No BRANDI MILLARD RN - 03/23/2015 6:38 ICE CREAM MAKER Educ Needs Patient/Family Education Needs : Postoperative instructions, Preoperative instructions BRANDI MILLARD RN - 03/23/2015 6:38 ICE CREAM MAKER Learning Style Preference Adult Grid Patient : Verbal explanation Family : Verbal explanation BRANDI MILLARD RN - 03/23/2015 6:38 ICE CREAM MAKER Source: [facility] POWERCHART Document Id: [id number] ICE CREAM MAKER!44 CREAM MAKER documented in this encounter Plan of Treatment Not on filedocumented as of this encounter Procedures Procedure Name Priority Date/Time Associated Comments Diagnosis CBC WITHOUT Routine 03/24/2015 5:50 AM Results f or this DIFFERENTIAL, B ICE CREAM MAKER procedure ar e in the results section. COMPREHENSIVE Routine 03/24/2015 5:50 AM Results for this METABOLIC PANEL, S/P ICE CREAM MAKER procedu re are in the results section. documented in this encounter Results (ABNORMAL) CBC without Differential (03/24/2015 5:50 AM ICE CREAM MAKER) Analysis Performed At Patho logist Time Signature Hematocrit 36.6 (L) 38.8 - POWERCHART 50.0 Hemoglobin 12.5 (L) 13.5 - POWERCHART 17.5 GDL MCV 90.6 81.0 - POWERCHART 95.0 FL Platelet Count 214 150 - 450 POWERCHART X109L Erythrocytes 4.04 (L) 4.32 - POWERCHART 5.72 [id number] HX RDW 13.8 11.8 - POWERCHART 15.6 Leukocytes 10.8 (H) 3.5 - 10.5 POWERCHART X109L Specimen (Source) Anatomical Collection Method Collection Time Re ceived Time Location / / Volume Laterality Blood 03/24/2015 5:50 AM ICE CREAM MAKER Karel Coronel M.D. LAB BLOOD ADD-ON Performing Organization Address City/State/ZIP Code Phon e Number POWERCHART (ABNORMAL) CMP (Comprehensive Metabolic Panel) (03/24/2015 5:50 AM ICE CREAM MAKER) [facility] gist Method Time Signature Chloride, [...] POWERCHART GDL eGFR Black/ >60 >=60 POWERCHART Finnish [id number] 2 HXeGFR (MDRD) >60 >=60 POWERCHART [id number] 2 Comment: Results are in mL/min/1.73m CKD [...] / Volume Laterality Blood 03/24/2015 5:50 AM ICE CREAM MAKER Karel Coronel M.D. LAB BLOOD ADD-ON Performing Organization Address City/State/ZIP Code Phon e Number POWERCHART documented in this encounter Visit Diagnoses Not on filedocumented in this encounter Additional Health Concerns Assessment Noted Time PHQ-9 Depression Total Score: 2 03/08/2015 11:16 AM CS T documented as of this encounter
--- OUTSIDE RECORDS SUMMARY | 2021-12-18 08:09 | XMS_ITS | Encounter Summary ---
:1940 Author Organization [facility] Address [address] [place] [address] Care Team Providers Name Role Phone Unavailable Primary Care Provider Unavailable Encounter Details Date Type Department Care Team Description 02/08/2015 [facility] Rodger Miranda M.D. [address] [place], [place] [phone] (Wo rk) Social History [...] Dodson M.D. - 02/08/2015 10:53 AM CDT [id number] CHIEF COMPLAINT/REASON FOR VISIT Right shoulder pain [...] DODSON MD On: 02/08/2015 09:02 PM Source: [facility] MHSDOLBEYNONRADSYS Document Id: [id number] documented in this encounter Miscellaneous Notes Miscellaneous - Yovana Shelton, L.P.N. - 02/08/2015 12:40 PM CDT Ortho surgery letter From: YOVANA SHELTON LPN ( Orthopedic Nurse) To: [facility]; [facility] Surgery Nurse Dinker; Surgery Vacuum Drier Tender; Sent: 02/08/2015 12:40:03 CDT Subject: Ortho surgery letter [facility] Surgery Clinic Checklist Patient Contact Number: [phone] Surgeon: Geremias Surgical Service: (x) Orthopedics (_) [...] Other Pre-op MD: pt will schedule in [place] Post-Op Appt:(time frame when to return) 10-14 [...] Yes X-Ray Location (if not done in [facility]): 02/08/15 CPM Post-op: (_) No (_) Yes- please make sure MD places order If Total Joint Case: Type of Prosthesis: Lisa reverse components Additional equipment: _ Has other side been done: (x) No (_) Yes Source: [facility] POWERCHART Document Id: [id number] Electronically signed by Cheryl Zucker [facility] [employer] [id number] at 09/30/2016 4:56 AM CDT Miscellaneous - Ana Rosa Dodson M.D. - 02/08/2015 11:53 AM CDT Ambulatory Patient Summary [facility] [address], [address] [place], [place] [phone] Visit Information Name: SACHINRYLEY Soares [facility] Number: [id number] Current Date: 02/08/2015 11:53:30 Physicians [...] if you dont have one. Go to [email or web address] and click on Create Your Account. Then, follow the directions to complete the online form. Youll be asked for your [facility] number which you can find at the top of this document. Your Goals/Additional instructions: Source: [facility] POWERCHART Document Id: [id number] Miscellaneous - Ana Rosa Dodson M.D. - 02/08/2015 11:53 AM CDT Ambulatory Discharge Medication List [address] [place], [place] [phone] Visit Information Name: RYLEY VINES [facility] Number: [id number] Visit Date: 02/08/2015 11:53:30 Attending [...] MD Signed On:08-FEB-2015 11:53:26 Additional Information: Source: [facility] Document Id: [id number] Miscellaneous - Bashir Hutton, C.M.ALara - 02/08/2015 11:03 AM CDT Adult Copra Sampler Intake/History Adult Copra Sampler Intake/History Entered On: 02/08/2015 11:03 CDT Performed On: 02/08/2015 11:03 CDT by BASHIR HUTTON Intake Chief Complaint : Consult right shoulder. BASHIR HUTTON - 02/08/2015 11:03 CDT General Info Information Given By : Patient Preferred Communication Mode : Verbal Languages : Belizean Is Patient Female and 13-50 no hysterectomy [...] BASHIR HUTTON - 02/08/2015 11:03 CDT Source: [facility] Document Id: [id number] CDT!22 documented in this encounter Plan of Treatment Not on filedocumented as of this encounter Visit Diagnoses Not on filedocumented in this encounter
--- OUTSIDE RECORDS SUMMARY | 2021-12-18 08:09 | XMS_ITS | Encounter Summary ---
:1940 Author Organization [facility] Address [address] [place] [address] Care Team Providers Name Role Phone Unavailable Primary Care Provider Unavailable Encounter Details Date Type Department Care Team Description 06/23/2006 - Hospital Encounter HX RST DERM SURG OP Lorena Fiore M.D. 06/30/2006 [facility] [address] [phone] (Wo rk) Social History Tobacco Use Types Packs/Day Years Used Date Smoking Tobacco: Never Assessed Sex Assigned at Date Recorded Not on file documented as of this encounter Plan of Treatment Not on filedocumented as of this encounter Visit Diagnoses Not on filedocumented in this encounter
--- OUTSIDE RECORDS SUMMARY | 2021-12-18 08:09 | XMS_ITS | Encounter Summary ---
:1940 Author Organization [facility] Address [address] [place] [address] Care Team Providers Name Role Phone Unavailable [...]
--- OUTSIDE RECORDS SUMMARY | 2021-12-18 08:09 | XMS_ITS | Encounter Summary ---
:1940 Author Organization [facility] Address [address] [place] [address] Care Team Providers Name Role Phone Unavailable Primary Care Provider Unavailable Encounter Details Date Type Department Care Team Description 01/29/2012 Hospital En[facility] Paulette Pittman D, P.A.-C. Social History [...] Aydin Pittman - 01/29/2012 3:30 PM CDT [id number] SUBJECTIVE: F body Rt Ear today From hearing aid OBJECTIVE: saame ASSESSMENT 1. Foreign body in ear Plan;removed without Problem, rubber tip Tm ok canal ok [facility] Document Id: [id number] documented in this encounter Plan of Treatment Not on filedocumented as of this encounter Visit Diagnoses Not on filedocumented in this encounter
--- OUTSIDE RECORDS SUMMARY | 2021-12-18 08:09 | XMS_ITS | Encounter Summary ---
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 PM CDT Oxygen Saturation - - [...] Signature Magnesium, S 2.1 1.7 - 2.3 [facility] MG/DL [facility] Specimen Anatomical Collection Method Collection Time Receive d Time (Source) Location / / Volume Laterality 12/20/2011 4:05 AM 2 4:05 CDT AM CDT Historical Provider LAB BLOOD ADD-ON Performing Organization Address City/[facility]/ZIP Code Phon e Number [facility] - [address] (ABNORMAL) Phosphorus Inorganic (12/20/2011 4:05 AM CDT) [facility] Method Time Signature Phosphorus 4.6 (H) 2.5 - 4.5 [facility] (Inorganic), S MG/DL [facility] Specimen Anatomical Collection Method Collection Time Receive d Time (Source) Location / / Volume Laterality 12/20/2011 4:05 AM 2 4:05 CDT AM CDT Historical Provider LAB BLOOD ADD-ON Performing Organization Address City/[facility]/ZIP [facility] [place] Phon e Number [facility] - [address] [place] [phone] [facility] CBC with Differential (12/20/2011 4:05 AM CDT) [facility] Method Time Signature Hemoglobin 14.4 13.5 - [facility] 17.5 G/DL [facility] Hematocrit 43.3 38.8 - [facility] 50.0 % [facility] RBC Distrib Width 13.6 11.8 - [facility] 15.6 % LABORATORIES - [facility] Platelet Count 202 150 - 450 [facility] X10(9)/L LAB[facility]ATORIES - [facility] Lymphocytes 2.33 0.90 - [facility] 2.90 LABORATORIES - X10(9)/L [facility] Monocytes 0.52 0.30 - [facility] 0.90 LABORATORIES - X10(9)/L [facility] Erythrocytes 4.75 4.32 - [facility] 5.72 LABORATORIES - X10(12)/L [facility] MCV 91.2 81.2 - [facility] 95.1 [place] LABORATORIES - [facility] Leukocytes 7.5 3.5 - [facility] 10.5 LABORATORIES - X10(9)/L [facility] Neutrophils 4.40 1.70 - [facility] 7.00 LABORATORIES - X10(9)/L [facility] Eosinophils 0.18 0.05 - [facility] 0.50 LABORATORIES - X10(9)/L [facility] Basophils 0.02 0.00 - [facility] 0.30 LABORATORIES - X10(9)/L [facility] Specimen Anatomical Collection Method Collection Time Receive d Time (Source) Location / / Volume Laterality 12/20/2011 4:05 AM 2 4:05 CDT AM CDT Historical Provider LAB BLOOD ADD-ON Performing Organization Address City/State/[facility] Code Phon e Number [facility] - [address] [place] [address] [facility] (ABNORMAL) Troponin T (12/20/2011 4:05 AM CDT) Patholo gist Method Time Signature Troponin T, S 0.34 (H) <0.01 [facility] NG/ML LABORATORIES [facility] Specimen Anatomical Collection Method Collection Time Receive d Time (Source) Location / / Volume Laterality 12/20/2011 4:05 AM 2 4:05 CDT AM CDT Historical Provider LAB BLOOD ADD-ON Performing Organization Address City/[facility] Code Phon e Number [facility] - [address] [place], [place] [address] [facility] Electrolyte (Chem 4) Panel (12/20/2011 4:05 AM CDT) P athologist Signature Chloride, S 104 100 - 108 [facility] MMOL/L [facility]ATOR[facility] - [facility] HX 27 22 - 29 [facility] Bicarbonate, MMOL/L LABORATORIES - P/S [facility] Sodium, S 141 135 - 145 [facility] MMOL/L [facility] - [facility] Potassium, S 4.2 3.6 - 5.2 [facility] MMOL/L [facility] - [facility] Creatinine, S 1.2 0.8 - 1.3 [facility] MG/DL [facility] - [facility] BUN (Blood 16 8 - 24 [facility] Urea MG/DL LABORATORIES - Nitrogen), S [facility] Anion Gap 10 7 - 15 [facility] - [facility] Glucose, S 96 70 - 140 [facility] MG/DL [facility] - [facility] Specimen Anatomical Collection Method Collection Time Receive d Time (Source) Location / / Volume Laterality 12/20/2011 4:05 AM 2 4:05 CDT AM CDT Historical Provider LAB BLOOD ADD-ON Performing Organization Address City/[facility]/ZIP Code Phon e Number [facility] - [address] [place] [phone] [facility] (ABNORMAL) Creatine Kinase (CK) MB Isoenzyme (12/20/2011 4:05 AM CDT) Patholo gist Method Time Signature Creatine 6.9 (H) <6.7 NG/ML [facility] Kinase(CK) MB LABORATORIES - Isoenzyme, S [facility] Specimen Anatomical Collection Method Collection Time Receive d Time (Source) Location / / Volume Laterality 12/20/2011 4:05 AM 2 4:05 CDT AM CDT Historical Provider LAB BLOOD ADD-ON Performing Organization Address City/[facility]/ZIP Code Phon e Number [facility] - [address] [place] [address] [facility] (ABNORMAL) APTT (Activated Partial Thromboplastin Time) (12/19/2011 3:33 PM CDT) P athologist Signature APTT, P >240 (>) 28 - 38 [facility] SEC [facility] - [facility] Specimen Anatomical Collection Method Collection Time Receive d Time (Source) Location / / Volume Laterality 12/19/2011 3:33 PM 2 3:33 CDT PM CDT Lissa Casey M.D. LAB BLOOD ADD-ON Performing Organization Address City/[facility]/ZIP Code Phon e Number [facility] - [address] [place], [place] [address] [facility] (ABNORMAL) ACT (Activated Clotting Time), POCT (12/19/2011 2:25 PM CDT) [facility] Method Time Signature Activated 266 (H) 84 - 139 [facility] Clotting Time, SEC LABORATORIES - POCT [facility] Specimen Anatomical Collection Method Collection Time Receive d Time (Source) Location / / Volume Laterality 12/19/2011 2:25 PM 2 2:25 CDT PM CDT Historical Provider LAB POCT ORDERABLES - DEVICE Performing Organization Address City/[facility]/ZIP Code Phon e Number [facility] - [address] [place], [place] [address] [facility] (ABNORMAL) ACT (Activated Clotting Time), POCT (12/19/2011 1:54 PM CDT) [facility] Method Time Signature Activated 227 (H) 84 - 139 [facility] Clotting Time, SEC LABORATORIES - POCT [facility] Specimen Anatomical Collection Method Collection Time Receive d Time (Source) Location / / Volume Laterality 12/19/2011 1:54 PM 2 1:54 CDT PM CDT Historical Provider LAB POCT ORDERABLES - DEVICE Performing Organization Address City/[facility]/ZIP Code Phon e Number [facility] - [address] [place] [address] [facility] ACT (Activated Clotting Time), POCT (12/19/2011 1:42 PM CDT) P athologist Signature Activated 138 84 - 139 [facility] Clotting Time, SEC LABORATORIES - POCT [facility] Specimen Anatomical Collection Method Collection Time Receive d Time (Source) Location / / Volume Laterality 12/19/2011 1:42 PM 2 1:42 CDT PM CDT Historical Provider LAB POCT ORDERABLES - DEVICE Performing Organization Address City/[facility]/ZIP Code Phon e Number [facility] - [address] [place] [address] [facility] Cardiac Catheterization (12/19/2011 1:11 PM CDT) Anatomical [...] Provider LAB BLOOD ADD-ON Performing Organization Address City/[facility]/ZIP Code Phon e Number [facility] - [address] [place] [address] [facility] (ABNORMAL) APTT (Activated Partial Thromboplastin Time) (12/19/2011 1:05 AM CDT) P athologist Signature APTT, P 50 (H) 28 - 38 SEC [facility] Specimen Anatomical Collection Method Collection Time Receive d Time (Source) Location / / Volume Laterality 12/19/2011 1:05 AM 2 1:05 CDT AM CDT Tahmina Dong M.D. LAB BLOOD ADD-ON Performing Organization Address City/[facility] Phon e Number [facility] - [address] [place] [phone] [facility] CBC with Differential (12/19/2011 1:05 AM CDT) Patholo gist Method Time Signature Hemoglobin 14.0 13.5 - [facility] 17.5 G/DL [facility] Hematocrit 40.5 38.8 - [facility] 50.0 % [facility] RBC Distrib Width 13.2 11.8 - [facility] 15.6 % [facility] Platelet Count 204 150 - 450 [facility] X10(9)/L [facility] Leukocytes 8.5 3.5 - [facility] 10.5 LABORATORIES - X10(9)/L [facility] Neutrophils 6.11 1.70 - [facility] 7.00 LAB[facility]ATORIES - X10(9)/L [facility] Lymphocytes 1.84 0.90 - [facility] 2.90 LABORATORIES - X10(9)/L [facility] Monocytes 0.45 0.30 - [facility] 0.90 LABORATORIES - X10(9)/L [facility] Eosinophils 0.09 0.05 - [facility] 0.50 LABORATORIES - X10(9)/L [facility] Basophils 0.01 0.00 - [facility] 0.30 LABORATORIES - X10(9)/L [facility] Erythrocytes 4.43 4.32 - [facility] 5.72 LABORATORIES - X10(12)/L [facility] MCV 91.4 81.2 - [facility] 95.1 [place] [facility]IES - [facility] Specimen Anatomical Collection Method Collection Time Receive d Time (Source) Location / / Volume Laterality 12/19/2011 1:05 AM 2 1:05 CDT AM CDT Tahmina Dong M.D. LAB BLOOD ADD-ON Performing Organization Address City/State/[facility] Code Phon e Number [facility] - [address] [place], [place] [address] [facility] Electrolyte (Chem 4) Panel (12/19/2011 1:04 AM CDT) P athologist Signature Sodium, S 143 135 - 145 [facility] MMOL/L [facility] - [facility] Potassium, S 4.1 3.6 - 5.2 [facility] MMOL/L [facility] - [facility] Creatinine, S 0.9 0.8 - 1.3 [facility] MG/DL [facility] - [facility] BUN (Blood 16 8 - 24 [facility] Urea MG/DL LABORATORIES - Nitrogen), S [facility] Chloride, S 108 100 - 108 [facility] MMOL/L [facility]ATORIES - [facility] HX 24 22 - 29 [facility] Bicarbonate, MMOL/L LABORATORIES - P/S [facility] Anion Gap 11 7 - 15 [facility] - [facility] Glucose, S 95 70 - 140 [facility] MG/DL [facility] - [facility] Specimen Anatomical Collection Method Collection Time Receive d Time (Source) Location / / Volume Laterality 12/19/2011 1:04 AM 2 1:04 CDT AM CDT Tahmina Dong M.D. LAB BLOOD ADD-ON Performing Organization Address City/State/ZIP Code Phon e Number [facility] - [address] [place] [phone] [facility] (ABNORMAL) Magnesium (12/19/2011 1:04 AM CDT) Analysis Performed At Patho logist Time Signature Magnesium, S 2.4 (H) 1.7 - 2.3 [facility] MG/DL LABORATORIES [facility] Specimen Anatomical Collection Method Collection Time Receive d Time (Source) Location / / Volume Laterality 12/19/2011 1:04 AM 2 1:04 CDT AM CDT Tahmina Dong M.D. LAB BLOOD ADD-ON Performing Organization Address City/[facility]/ZIP Code Phon e Number [facility] - [address] [place] [phone] [facility] Phosphorus Inorganic (12/19/2011 1:04 AM CDT) Analysis Performed At Patho logis Time Signature Phosphorus 4.2 2.5 - 4.5 [facility] (Inorganic), S MG/DL [facility] Specimen Anatomical Collection Method Collection Time Receive d Time (Source) Location / / Volume Laterality 12/19/2011 1:04 AM 2 1:04 CDT AM CDT Tahmina Dong M.D. LAB BLOOD ADD-ON Performing Organization Address City/State/ZIP Code Phon e Number [facility] - [address] [place] [phone] [facility] DX Chest Portable 1 View (12/18/2011 7:31 [...] Calcified tortuous aorta. Electronically signed by: ?? Willie Laird MD [phone] 18-Dec-2011 20: 27 I have reviewed the [...] aorta. Electronically signed by: Willie Laird MD [phone] 18-Dec-2011 20: 27 I have reviewed the films/images and agr ee with the above interpretation. Electronically signed by: Maged Amato MD [phone] 18-Dec-2011 20:4 2 Lissa Casey M.D. IMG DIAGNOSTIC IMAGING PROCE DURES (ABNORMAL) Cardiac Biomarker Panel (12/18/2011 7:25 PM CDT) [facility] [employer] Method Time Signature Delta Interp Sig Delta [facility] Comment: Significant delta observed. Troponin Delta 0.38 NG/ML [facility] [place] Troponin T 6H, S 0.52 (H) <0.01 NG/ML [facility] Delta Interp Sig Delta [facility] Comment: Significant delta observed. Troponin T, S 0.09 (H) <0.01 NG/ML [facility] Troponin T 3H, S 0.47 (H) <0.01 NG/ML [facility] Troponin Delta 0.43 NG/ML [facility] [place] Specimen Anatomical Collection Method Collection Time Receive d Time (Source) Location / / Volume Laterality 12/18/2011 7:25 PM 2 7:25 CDT PM CDT Tahmina Dong M.D. LAB BLOOD ADD-ON Performing Organization Address City/State/ZIP Code Phon e Number [facility] - [address] [place], [place] [address] [facility] PT (Prothrombin Time) with INR (12/18/2011 7:25 PM CDT) [facility] gist Method Time Signature Prothrombin 11.0 9.5 - 13.8 [facility] Time, P SEC [facility]IES - [facility] INR 1.0 0.8 - 1.2 [facility] Specimen Anatomical Collection Method Collection Time Receive d Time (Source) Location / / Volume Laterality 12/18/2011 7:25 PM 2 7:25 CDT PM CDT Tahmina Dong M.D. LAB BLOOD ADD-ON Performing Organization Address City/[facility] Phon e Number [facility] - [address] [place] [phone] [facility] (ABNORMAL) APTT (Activated Partial Thromboplastin Time) (12/18/2011 7:25 PM CDT) athologist [facility] APTT, P 78 (H) 28 - 38 SEC [facility] Specimen Anatomical Collection Method Collection Time Receive d Time (Source) Location / / Volume Laterality 12/18/2011 7:25 PM 2 7:25 CDT PM CDT Tahmina Dong M.D. LAB BLOOD ADD-ON Performing Organization Address City/State/ZIP Code Phon e Number [facility] - [address] [place] [phone] [facility] Electrolyte (Chem 4) Panel (12/18/2011 7:25 PM CDT) athologist [facility] Chloride, S 106 100 - 108 [facility] MMOL/L LABORATORIES [facility] BUN (Blood 16 8 - 24 [facility] Urea MG/DL LABORATORIES - Nitrogen), S [facility] Glucose, S 93 70 - 140 [facility] MG/DL LABORATORIES [facility] Sodium, P 142 135 - 145 [facility] MMOL/L [facility] - [facility] Potassium, P 4.1 3.6 - 5.2 [facility] MMOL/L LAB[facility]ATORIES - [facility] HX 29 22 - 29 [facility] Bicarbonate, MMOL/L LABORATORIES - P/S [facility] Creatinine, S 1.0 0.8 - 1.3 [facility] MG/DL [facility] Specimen Anatomical Collection Method Collection Time Receive d Time (Source) Location / / Volume Laterality 12/18/2011 7:25 PM 2 7:25 CDT PM CDT Tahmina Dong M.D. LAB BLOOD ADD-ON Performing Organization Address City/State/ZIP Code Phon e Number [facility] - [address] [place] [phone] [facility] Magnesium (12/18/2011 7:25 PM CDT) P athologist Signature Magnesium, S 2.3 1.7 - 2.3 [facility] MG/DL [facility] Specimen Anatomical Collection Method Collection Time Receive d Time (Source) Location / / Volume Laterality 12/18/2011 7:25 PM 2 7:25 CDT PM CDT Tahmina Dong M.D. LAB BLOOD ADD-ON Performing Organization Address City/State/ZIP Code Phon e Number [facility] - [address] [place] [address] [facility] Phosphorus Inorganic (12/18/2011 7:25 PM CDT) Analysis Performed At Patho logist Time Signature Phosphorus 2.6 2.5 - 4.5 [facility] (Inorganic), S MG/DL [facility] Specimen Anatomical Collection Method Collection Time Receive d Time (Source) Location / / Volume Laterality 12/18/2011 7:25 PM 2 7:25 CDT PM CDT Tahmina Dong M.D. LAB BLOOD ADD-ON Performing Organization Address City/[facility]/ZIP Code Phon e Number [facility] - [address] [place] [address] [facility] Lipid Panel (12/18/2011 7:25 PM CDT) Patholo gist Method Time Signature Cholesterol, 209 SeeComment [facility] Total MG/DL [facility] Comment: Reference Range: ? NCEP guidelines [...] ? Cholesterol, Non-HDL, 158 SeeComment MG/DL [facility] LAB[facility]ATORIES - Calculated [facility] [...] PM 2 7:25 CDT PM CDT Tahmina Dnog M.D. LAB BLOOD ADD-ON Performing Organization Address City/State/ZIP Code Phon e Number [facility] - [address] [place], [place] [address] [facility] (ABNORMAL) CBC with Differential (12/18/2011 7:25 PM CDT) [facility] gist Method Time Signature Hemoglobin 14.6 13.5 - [facility] 17.5 G/DL LABORATORIES - [facility] Hematocrit 43.7 38.8 - [facility] 50.0 % LABORATORIES - [facility] RBC Distrib 13.3 11.8 - [facility] Width 15.6 % LABORATORIES - [facility] Platelet Count 205 150 - 450 [facility] X10(9)/L LABORATORIES - [facility] Leukocytes 13.7 (H) 3.5 - [facility] 10.5 LABORATORIES - X10(9)/L [facility] Neutrophils 12.10 (H) 1.70 - [facility] 7.00 LABORATORIES - X10(9)/L [facility] Lymphocytes 0.91 0.90 - [facility] 2.90 LABORATORIES - X10(9)/L [facility] Monocytes 0.59 0.30 - [facility] 0.90 LABORATORIES - X10(9)/L [facility] Eosinophils 0.08 0.05 - [facility] 0.50 LABORATORIES - X10(9)/L [facility] Basophils 0.02 0.00 - [facility] 0.30 LABORATORIES - X10(9)/L [facility] Erythrocytes 4.79 4.32 - [facility] 5.72 LABORATORIES - X10(12)/L [facility] MCV 91.2 81.2 - [facility] 95.1 [place] [facility]IES - [facility] Specimen Anatomical Collection Method Collection Time Receive d Time (Source) Location / / Volume Laterality 12/18/2011 7:25 PM 2 7:25 CDT PM CDT Tahmina Dong M.D. LAB BLOOD ADD-ON Performing Organization Address City/State/ZIP Code Phon e Number [facility] - [address] [place], [place] [address] [facility] documented in this encounter Visit Diagnoses Not on filedocumented in this encounter
--- OUTSIDE RECORDS SUMMARY | 2021-12-18 08:09 | XMS_ITS | Encounter Summary ---
:1940 Author Organization [facility] Address [address] [place] [address] Care Team Providers Name Role Phone Unavailable Primary Care Provider Unavailable Encounter Details Date Type Department Care Team Description 11/02/2014 Hospital Encounter HX [facility] Corby Woodward MMarry [address] [place] [address] (Wo rk) Social History Tobacco Use Types [...] Summary-Paper Based CODING DATE: 11/08/2014 FINAL [place] [facility] STATUS: * Discharged to Home or [...] MCGUIRE Date Saved: 11/08/2014 09:46 am Source: [employer]ART Document Id: [id number] documented in this encounter Plan of Treatment Not on filedocumented as of this encounter Visit Diagnoses Not on filedocumented in this encounter
--- OUTSIDE RECORDS SUMMARY | 2021-12-18 08:09 | XMS_ITS | Encounter Summary ---
:1940 Author Organization [facility] Address [address] [place] [address] Care Team Providers Name Role Phone Unavailable Primary Care Provider Unavailable Encounter Details Date Type Department Care Team Description 01/10/[address] [facility] Kobe Waller, P.A.-C. Social History Tobacco [...] Kobe Conrad - 01/10/2015 7:41 AM CDT [id number] Mr. Vines is a very pleasant, 74-year-old [...] and it would be done over in [place]. He will let us know if he [...] bring up the possibility of going to [place]. I told him he is more than [...] which 17 minutes was spent in direct [id number] counseling and educating the patient about his condition, as well as treatment options available to him. Kobe Conrad P.A.-C./dirk Electronically Signed By: KOBE CONRAD PA-C On: 01/16/2015 11:57 AM Source: [facility] MHSDOLBEYNONRADSYS Document Id: [id number] documented in this encounter Miscellaneous Notes Miscellaneous - Kobe Conrad - 01/10/2015 3:46 PM CDT Ambulatory Patient Summary [address] [id number] Visit Information Name: LUIS ARMANDO RYLEY RASHAWNANA [facility] Number: [id number] Current Date: 01/10/2015 15:46:00 Physicians [...] if you dont have one. Go to [email or web address] and click on Create Your Account. Then, follow the directions to complete the online form. Youll be asked for your [facility] number which you can find at the top of this document. Your Goals/Additional instructions: Source: [facility] POWERCHART Document Id: [id number] Miscellaneous - Kobe Conrad - 01/10/2015 3:45 PM CDT Ambulatory Discharge Medication List [address] [id number] Visit Information Name: RYLEY VINES [facility] Number: [id number] Visit Date: 01/10/2015 15:45:59 Attending [...] PA-C Signed On:10-JAN-2015 15:45:53 Additional Information: Source: [facility] POWERCHART Document Id: [id number] Miscellaneous - Trini Dodson R.N. 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 Compressor Engineer Intake/History Entered On: 01/10/2015 8:03 CDT Performed On: 01/10/2015 7:59 CDT by TRINI DODSON stallion manager Chief Complaint : right shoulder pain for [...] Preferred Communication Mode : Verbal Languages : Martiniquais Is Patient Female and 13-50 no hysterectomy : No TRINI ODDSON RN - 01/10/2015 7:59 CDT Subjective Pain [...] DODSON RN - 01/10/2015 7:59 CDT Source: [email or web address] Document Id: [id number] CDT!38 documented in this encounter Plan of Treatment Not on filedocumented as of this encounter Visit Diagnoses Not on filedocumented in this encounter
--- OUTSIDE RECORDS SUMMARY | 2021-12-18 08:09 | XMS_ITS | Encounter Summary ---
:1940 Author Organization [facility] Address [address] [place] [address] Care Team Providers Name Role Phone Unavailable Primary Care Provider Unavailable Encounter Details Date Type Department Care Team Description 09/27/2010 Hospital Encounter HX [facility] Alfonso Cervantes P.A.-C. [address] [place] [phone] (Wo rk) Social History Tobacco Use Types [...] Cervantes P.A.-C. - 09/27/2010 12:00 AM CDT [id number] CHIEF COMPLAINT/REASON FOR VISIT Medication refill. HISTORY [...] 70 years old. 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 FAMILY HISTORY His father [...] CERVANTES PA-C On: 10/03/2010 09:03 AM Source: [facility] MHSDOLBEYNONRADSYS Document Id: [id number] documented in this encounter Miscellaneous Notes Miscellaneous - Ana Cervantes P.A.-C. - 09/27/2010 11:28 AM CDT Ambulatory Vitals Height Weight Ambulatory Vitals Height Weight Entered On: 09/27/2010 11:29 CDT Performed On: 09/27/2010 11:28 CDT by ANA CERVANTES PA-C Vitals/Ht/Wt Systolic Blood Pressure: 117mmHg Diastolic Blood Pressure: 72mmHg NIBP Mean: 87mmHg ANA CERVANTES PA-C - 09/27/2010 11:28 CDT Source: [employer] Document Id: [id number] CDT!5 Miscellaneous - Conversion, Historical Provider Ser - 09/27/2010 8:31 AM CDT Adult Frozen Foods Manager Intake/History Adult Frozen Foods Manager Intake/History Entered On: 09/27/2010 8:33 CDT Performed [...] ELLIS; Reviewed Date: 01/09/2010 14:01 CDT [facility] Document Id: [id number] CDT!25 documented in this encounter Plan of Treatment Not on filedocumented as of this encounter Visit Diagnoses Not on filedocumented in this encounter
--- OUTSIDE RECORDS SUMMARY | 2021-12-18 08:09 | XMS_ITS | Encounter Summary ---
:1940 Author Organization [facility] Address [address] [place] [address] Care Team Providers Name Role Phone Unavailable [...]
--- OUTSIDE RECORDS SUMMARY | 2021-12-18 08:09 | XMS_ITS | Encounter Summary ---
:1940 Author Organization [facility] Address [address] [place] [address] Care Team Providers Name Role Phone Unavailable [...]
--- NOTE | 2021-12-18 09:00 | CRLHL7_ITS ---
For Patients: As a result of the Century Cures Act, medical imaging exams and procedure reports are released immediately into your electronic medical record. You may view this report before your referring provider. If you have questions, please contact your health care provider. Indication: EPIGASTRIC PAIN 2-3 MONTHS - MOST PAIN WITH MOVEMENT Technique: Postcontrast CT abdomen and pelvis. 78 cc Isovue 370 intravenous contrast. Please note that all CT scans at this facility use dose modulation, iterative reconstruction, and/or weight-based dosing when appropriate to reduce radiation dose to as low as reasonably achievable. Comparison: None Findings: Dependent scarring in both lung bases. No pleural effusion. 6.5 cm hiatal hernia. Fatty infiltration liver. No intrahepatic masses. Gallbladder normal. Pancreas unremarkable. Normal spleen. Adrenal glands normal. Simple cyst left kidney measuring 1.6 cm. Upper limits normal retroperitoneal lymph nodes measuring up to 1 cm. Incidental duodenal diverticulum measuring 2.6 cm. Mild aneurysmal dilation of the infrarenal abdominal aorta measuring 3 centimeters with moderately severe atherosclerotic disease. Normal ureters. Mild prostate enlargement with mass effect upon the inferior bladder. No bladder stone. No bowel obstruction or free air. No free fluid or abscess. Extensive sigmoid diverticulosis. The appendix is normal. Unremarkable small bowel. Incomplete distension of the stomach. 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 No fracture. Impression: Extensive sigmoid diverticulosis. No diverticulitis. Moderate diffuse hepatic steatosis. Normal CT of the gallbladder. No biliary obstruction or calcified gallstones. 3 centimeter abdominal aortic aneurysm. 6.5 cm hiatal hernia. Please note that all CT scans at this facility use dose modulation, iterative reconstruction, and/or weight-based dosing when appropriate to reduce radiation dose to as low as reasonably achievable. Dictated by Neptali Colindres MD @ 12/18/2021 9:41:25 AM (Electronically Signed)
== END 2021-12-18 07:53 | disposition home or self-care (01) ==
LOC: CT 07:55
PROVIDERS: PCP Nurse Practitioner Family; Visit Provider Nurse Practitioner Family
DX: R10.13 Epigastric pain (principal); K57.30 Diverticulosis of large intestine without perforation or abscess without bleeding; K76.0 Fatty (change of) liver, not elsewhere classified; I71.4 Abdominal aortic aneurysm, without rupture; K44.9 Diaphragmatic hernia without obstruction or gangrene
CPT/HCPCS: 74177; Q9967

== ENCOUNTER 2022-03-08 10:53 | Outpatient (CLI) | payer MEDICARE, BC, SELFPAY ==
--- OUTSIDE RECORDS SUMMARY | 2022-03-08 10:59 | XMS_ITS | Encounter Summary ---
:1940 Author Organization [facility] Address [address] [place] [address] Care Team Providers Name Role Phone Elisha Woodward MD Primary Care Provider Encounter Details Date Type Department Care Team Description 02/16/2021 Immunization Family Medicine [address] [place] [address] Social History Tobacco Use Types Packs/Day Years [...] on filedocumented in this encounter Care Teams Customs And Border Protection Officer Relationship Specialty Start Date End Date Elisha Woodward MD PCP - General 01/01/[address] [place] [address] documented as of this encounter
--- OUTSIDE RECORDS SUMMARY | 2022-03-08 10:59 | XMS_ITS | Encounter Summary ---
:1940 Author Organization [facility] Address [address] [place] [address] Care Team Providers Name Role Phone None, [...] Branch Off w/Diff (10/25/2020 9:17 AM CDT) [facility] gist Method Time Signature WBC 7.2 [...] FALLS Granulocytes/Urszula 4.8 1.7 - 7.0 10/25/2020 [facility] [place] trophils K/uL 9:32 AM CDT FALLS Absolute Specimen Anatomical Collection Method Collection Time Receive d Time (Source) Location / / Volume Laterality 10/25/2020 9:17 AM 9:31 CDT AM CDT D. 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
--- OUTSIDE RECORDS SUMMARY | 2022-03-08 10:59 | XMS_ITS | Encounter Summary ---
:1940 Author Organization [facility] Address [address] [place] [address] Care Team Providers Name Role Phone Elisha Woodward MD Primary Care Provider Reason for Visit Reason Onset Date Comments med list 03/26/2021 Encounter Details Date Type Department Care Team Description 03/26/2021 Telephone [place] Elisha Woodward MD med list [address] [facility] [address] [place], [place] [address] [place], [place] [phone] (Wo rk) Social History Tobacco Use Types [...] - 03/27/2021 11:42 AM CST Picked up. TRUCTION CONTROLLER Telephone Encounter - Guillermina Bradford LPN - 03/26/2021 12:45 PM CST At front end developer javascript html css TRUCTION CONTROLLER Telephone Encounter - Arti Amaya - 03/26/2021 12:37 PM CST Pt called asking for a copy of his med list. Pt will pick it up in clinic tomorrow, Friday03/27/21. TRUCTION CONTROLLER documented in this encounter Plan of Treatment Not on filedocumented as of this encounter Visit Diagnoses Not on filedocumented in this encounter Care Teams Tobacco Checkout Clerk Relationship Specialty Start Date End Date Elisha Woodward MD PCP - General 01/01/[address] [place] [address] documented as of this encounter
--- OUTSIDE RECORDS SUMMARY | 2022-03-08 10:59 | XMS_ITS | Encounter Summary ---
:1940 Author Organization [facility] Address [address] [place] [address] Care Team Providers Name Role Phone None, Pcp Primary Care Provider Unavailable Reason for Visit Reason Comments Medicare Annual Wellness Visit Subsequent Encounter Details Date Type Department Care Team Description 10/25/2020 Clinical Support Margarito [place] Medicare annual wellness [address] visit, subsequent [place] [address] (Primary Dx) [phone] Social History Tobacco Use Types Packs/Day Years [...] Team: Pcp None as PCP - General (Electronic Semiconductor Processor) Eye Care: [facility] Dental Care: [facility] Pharmacy: [facility] [address] [place] [id number] Other: Visit Vitals BP 134/88 (BP Location: [...] pathological fracture ??? Atherosclerotic heart disease of [place] coronary artery without angina pectoris ??? [...] Gatherings with Friends and Family: ??? Attends Druze Services: ??? Active Member of Clubs or [...] transfusion before 1991. ?? Those born between 1908-9706. Glaucoma: Medicare Part B (Medical Insurance) covers [...] Primary documented in this encounter Care Teams Chairman President And Chief Executive Officer Relationship Specialty Start Date End Date None, Pcp PCP - General Electronic Semiconductor Processor 03/29/20 12/31/[address] [place] [phone] documented as of this encounter
--- OUTSIDE RECORDS SUMMARY | 2022-03-08 10:59 | XMS_ITS | Encounter Summary ---
:1940 Author Organization [facility] Address [address] [place] [address] Care Team Providers Name Role Phone Elisha Woodward MD Primary Care Provider Reason for Visit Reason Comments Med Refill Encounter Details Date Type Department Care Team Description 12/13/2021 Refill [place] Elisha Woodward Hyperlipidemia, unspecified [address] [facility] [place] D[place] hyperlipidemia type [place], [place] [address] [phone] [place] [address] Social History Tobacco Use Types Packs/Day Years [...] type documented in this encounter Care Teams Etcher Hand Relationship Specialty Start Date End Date Elisha Woodward MD PCP - General 01/01/[address] [place] [address] documented as of this encounter
--- OUTSIDE RECORDS SUMMARY | 2022-03-08 10:59 | XMS_ITS | Encounter Summary ---
:1940 Author Organization [facility] Address [address] [place] [address] Care Team Providers Name Role Phone Elisha Woodward MD Primary Care Provider Reason for Visit Reason Comments Med Refill Encounter Details Date Type Department Care Team Description 11/17/2021 Refill [place] Elisha Woodward Hyperlipidemia, unspecified hyperlipidemia type; [address] [place] Gastroesophageal reflux disease without esophagitis [place], [place] [address] [place] [address] Social History Tobacco Use Types Packs/Day Years [...] Notes Telephone Encounter - Arti Amaya - 02/21/2022 1:54 PM CDT Left message requesting med review, also asked to let us know if he has changed his PCP. Telephone Encounter - Arti Amaya - 01/28/2022 2:37 PM CDT Left message for Pt to schedule med review worth labs prior. Telephone Encounter - Nisha [place] RN - [...] reflux documented in this encounter Care Teams Soa Architect Relationship Specialty Start Date End Date Elisha Woodward MD PCP - General 01/01/[address] [place] [address] documented as of this encounter
--- OUTSIDE RECORDS SUMMARY | 2022-03-08 10:59 | XMS_ITS | Encounter Summary ---
:1940 Author Organization [facility] Address [address] [place] [address] Care Team Providers Name Role Phone Elisha Woodward MD Primary Care Provider Reason for Visit Reason Comments Med Refill Encounter Details Date Type Department Care Team Description 01/25/2022 Refill Elisha Young Screening for deficiency ane elif (Primary Dx); [address] [place] Atherosclerosis of [place] coronary arter y without angina pectoris, unspecified whether [place] or transplanted heart; [place], [place] [address] [facility] 20 [place] Primary hypertension; [phone] [place], [place] Diabetes me llitus screening; [phone] Screening cholesterol level; [phone] Thyroid disorde r screen (Work) Social History Tobacco Use Types Packs/Day [...] Telephone Encounter - Arti Amaya - 02/21/2022 1:56 PM CDT Left message requesting med review, also asked to let us know if he has changed his PCP. Telephone Encounter - Arti Amaya - 01/28/2022 2:22 PM CDT Left message requesting med review with fasting labs prior. Telephone Encounter - Elisha Woodward MD - 01/28/2022 12:06 PM CDT Lab test have been ordered. Telephone Encounter - Teresa Tomlin - 01/28/2022 11:30 AM CDT Did not contact pt as there are no active lab orders entered at this time. Telephone Encounter - Diana Fabian - 01/28/2022 10:59 AM CDT Per provider: I have filled his request for one of his blood pressure pills for 90 days. ??He is due for a clinic visit and appropriate labs. ??Please contact the patient and saving come in sometime in the next number weeks or so fasting for his clinic visit and lab test. Telephone Encounter - Tawana Forbes MA - 01/28/2022 10:27 AM CDT Last visit in provider department: 10/25/2020 Last visit requested medication was discussed: 10/25/2020 Last Rx: 10/25/2020 # 90, 3 refill Requested Prescriptions Pending Prescriptions Disp Refills ??? metoprolol succinate XL (TOPROL-XL) 25 MG 24 hr tablet [Pharmacy Med Name: METOPROLOL SUCCINATE ER 25MG TB24] 90 tablet 1 Sig: TAKE ONE TABLET BY MOUTH EVERY DAY FOR BLOOD PRESSURE DO NOT CRUSH OR CHEW Labs: 08/21/2020 C8 Vitals: BP Readings from Last 2 Encounters: 10/25/20 134/88 10/25/20 134/88 Upcoming appointment with provider: Visit date not found Pt due to be seen. Please work with your PSR to help pt set up appt. Please advise on extension until appt. documented in this encounter Plan of Treatment Scheduled Orders Name Type Priority Associated Diagnoses Order S chedule CBC Branch Off w/Diff Lab Routine Screening for defic iency Expected: 01/28/2022, anemia Expires: 2022 Basic metabolic panel Lab Routine Primary hy pertension Expected: 01/28/2022, Diabetes mellitus Expires: 0 01/28/2023 screening Lipid panel Lab Routine Screening cholesterol Expect ed: 01/28/2022, level Expires: 2022 TSH Lab Routine Thyroid disorder screen Expe cted: 01/28/2022, Expires: 2022 documented as of this encounter Visit Diagnoses Diagnosis Screening for deficiency anemia - Primar y Screening for other and unspecified defi ciency anemia Atherosclerosis of [place] coronary arter y without angina pectoris, unspecified whether [place] or transplanted heart Primary hypertension Unspecified essential hypertension Diabetes mellitus screening Screening for diabetes mellitus Screening cholesterol level Screening for lipoid disorders Thyroid disorder screen Screening for thyroid disorder documented in this encounter Care Teams Channel Sales Manager Relationship Specialty Start Date End Date Elisha Woodward MD PCP - General 01/01/[address] [place] [address] documented as of this encounter
--- OUTSIDE RECORDS SUMMARY | 2022-03-08 10:59 | XMS_ITS | Encounter Summary ---
:[address] [facility] Address [address] [place] [address] Care Team Providers Name Role Phone Elisha Woodward MD Primary Care Provider Reason for Visit Reason Onset Date Comments medication question 01/15/2021 Encounter Details Date Type Department Care Team Description 01/15/2021 [place]phone [place], medication question [address] [facility] [place], [place] [address] [phone] [place] [address] (Wo rk) Social History Tobacco Use Types [...] a medication question. Please call Pt at [phone] documented in this encounter Plan of Treatment Not on filedocumented as of this encounter Visit Diagnoses Not on filedocumented in this encounter Care Teams Manager Of Medical Relationship Specialty Start Date End Date Elisha Woodward MD PCP - General 01/01/[address] [place] [address] documented as of this encounter
--- OUTSIDE RECORDS SUMMARY | 2022-03-08 10:59 | XMS_ITS | Clinical Summary ---
:1940 Author Organization [facility] Address [address] [place] [address] Care Team Providers Name Role Phone Elisha Woodward MD Primary Care Provider Allergies Active Allergy Reactions Severity Noted Date Comments Oxycodone 08/13/2018 Confusion Medications Medication Sig Dispensed Refills Start Date End Date Status nitroglycerin Place 1 tablet 10 tablet 2 03/29/2020 Active (NITROSTAT) 0.4 MG SL (0.4 mg total) tabletIndications: under the tongue Coronary artery disease every 5 (five) without angina pectoris, minutes if unspecified vessel or needed for chest lesion type, unspecified pain whether [place] or transplanted heart aspirin 81 MG chewable Chew 81 mg 1 0 Active tablet (one) time each day pantoprazole (PROTONIX) TAKE ONE TABLET 90 tablet 3 11/01/2021 Active 40 MG EC BY MOUTH EVERY tabletIndications: DAY BEFORE Gastroesophageal reflux BREAKFAST disease without esophagitis atorvastatin (LIPITOR) TAKE ONE TABLET 90 tablet 1 11/20/2021 Active 80 MG tabletIndications: BY MOUTH AT Hyperlipidemia, BEDTIME unspecified hyperlipidemia type ezetimibe (ZETIA) 10 MG TAKE ONE TABLET 90 tablet 1 12/13/2021 Active tabletIndications: BY MOUTH EVERY Hyperlipidemia, DAY unspecified hyperlipidemia type metoprolol succinate XL TAKE ONE TABLET 90 tablet 0 01/28/2022 Active (TOPROL-XL) 25 MG 24 hr BY MOUTH EVERY tabletIndications: DAY FOR BLOOD Atherosclerosis of PRESSURE DO [place] coronary artery NOT CRUSH OR without angina pectoris, CHEW unspecified whether [place] or transplanted heart Active Problems Problem Noted Date 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 Added automatically from request for mayte hardy [id number] Occult blood in stools 09/11/2020 Overview: Formatting of this note might be differe nt from the original. Added automatically from request for mayte hardy [id number] Primary osteoarthritis, left shoulder 12/20/2019 Overview: Formatting of this note might be differe nt from the original. Added automatically from request for mayte hardy [id number] Bilateral hearing loss 12/14/2019 Gastroesophageal reflux disease [...] irrigation completed by nursing staff. Follow-up with parquet floor layer's helper on a regular basis. 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 Cervicalgia 10/28/2014 Hyperlipoproteinemia 09/02/2014 Disturbance of skin sensation 12/07/2013 Vitamin D deficiency 03/10/2009 Polymyalgia rheumatica 03/25/2007 History of cerebrovascular accident 06/10/2006 Encounters Date Type Specialty Care Team Description 01/25/2022 Refill Family Medicine Elisha Woodward, Screen ing for deficiency anemia (Primary Dx); Atherosclerosis of [place] coronary artery without angina pectoris, unspecified whether [place] or transplanted heart; Primary hyperte nsion; Diabetes mellit us screening; Screening cady sterol level; Thyroid disorde r screen 12/13/2021 Refill Family Elisha Kaiser, Hyperl ipidemia, unspecified hyperlipidemia type from Last 3 Months Immunizations Name Administration [...] Done Comments Glaucoma Screening 67+ Yr 1940 Zoster Vaccines (1 of 2) 1991 COVID-19 Vaccine (4 - Booster 06/19/2021 02/16/2021, for Pfizer series) 07/21/2020, 06/30/2020 Fall Risk Performed 10/25/2021 10/25/2020 [facility] Annual Wellness 10/25/2021 10/25/2020, 01/09/2018 Pneumococcal Vaccine: 65+ Completed 01/09/2018, Years 06/10/2006 HPV Vaccines Aged Out No longer eligib le based on patient's age to complete this to [facility] Insurance Payer Benefit Plan / Subscriber ID Effective Dates Phone Addre ss Type Group MEDICARE MEDICARE [id number] 2006-Presen [address] [place] [address] BCBS OF [employer] [place] [id number] 2016-Presen [address] [place] [address] [place], [place] MEDICARE NON [id number] (Home) YARIEL GARCIA [id number] Care Teams Roof Tile Layer Relationship Specialty Start Date End Date Elisha Woodward MD PCP - General 01/01/[address] [place] [address]
--- OUTSIDE RECORDS SUMMARY | 2022-03-08 10:59 | XMS_ITS | Encounter Summary ---
:1940 Author Organization [facility] Address [address] [place] [address] Care Team Providers Name Role Phone Elisha Woodward MD Primary Care Provider Reason for Visit Reason Comments Med Refill Encounter Details Date Type Department Care Team Description 11/01/2021 Refill [place] Elisha Woodward Gastroesophageal reflux [address] [place] disease without esophagitis [place], [place] [address]16 [facility] 20 [place] [address] Social History Tobacco Use Types Packs/Day Years [...] reflux documented in this encounter Care Teams Water Plumber Relationship Specialty Start Date End Date Elisha Woodward MD PCP - General 01/01/[address] [place] [address] documented as of this encounter
--- OUTSIDE RECORDS SUMMARY | 2022-03-08 11:00 | XMS_ITS | Encounter Summary ---
:1940 Author Organization [facility] Address [address] [place] [address] Care Team Providers Name Role Phone Laila Loco MECHANIC WELDER TRUCK DRIVER, MANAGER EMERGENCY DEPARTMENT Primary Care Provider [phone] Encounter Details Date Type Department Care Team Description 07/06/2019 Orders Only [place] Constipation, [address] M, MECHANIC WELDER TRUCK DRIVER, MANAGER EMERGENCY DEPARTMENT unspecified Margarito Love, YARIEL [address] constipation type [address] [place] [address] (Primary Dx) [phone] Social History Tobacco Use Types Packs/Day Years [...] Primary documented in this encounter Care Teams Studio Technician Video Operator Relationship Specialty Start Date End Date Laila Loco, MECHANIC WELDER TRUCK DRIVER, MANAGER EMERGENCY DEPARTMENT PCP - General 12/09/17 01/10/[address] [facility] [place] [address] documented as of this encounter
--- OUTSIDE RECORDS SUMMARY | 2022-03-08 11:00 | XMS_ITS | Encounter Summary ---
:1940 Author Organization [facility] Address [address] [place] [address] Care Team Providers Name Role Phone None, Pcp Primary Care Provider Unavailable Encounter Details Date Type Department Care Team Description 09/08/2020 Orders Only [place] Elisha Woodward MD [address] [facility] [address] [place], [place] [address] [place], [place] [phone] [address] (Wo rk) Social History Tobacco Use Types [...] on filedocumented in this encounter Care Teams Hairspring Vibrator Relationship Specialty Start Date End Date None, Pcp PCP - [facility] Corpsman 03/29/20 12/31/20 [address] [place] [address] documented as of this encounter
--- OUTSIDE RECORDS SUMMARY | 2022-03-08 11:00 | XMS_ITS | Encounter Summary ---
:1940 Author Organization [facility] Address [address] [place] [address] Care Team Providers Name Role Phone Elisha Woodward MD Primary Care Provider Encounter Details Date Type Department Care Team Description 07/05/2019 Telephone [place], [address] ROCK LOADER, [place], [place] [address] [address] [facility] [address] [phone] [place], [place] [address] Social History Tobacco Use [...] on filedocumented in this encounter Care Teams Frame Stripper Relationship Specialty Start Date End Date Elisha Woodward MD PCP - General 01/01/[address] [place] [address] documented as of this encounter
--- OUTSIDE RECORDS SUMMARY | 2022-03-08 11:00 | XMS_ITS | Encounter Summary ---
:1940 Author Organization [facility] Address [address] [place] [address] Care Team Providers Name Role Phone None, Pcp Primary Care Provider Unavailable Encounter Details Date Type Department Care Team Description 09/01/2020 Lab [place] Anemia, unspecified type [address] [place], [place] [address] Social History Tobacco Use [...] Blood (iFOBT)- outpatient (09/01/2020 8:10 AM CDT) [facility] gist Method Time Signature Immunochemical POSITIVE Negative 09/01/2020 [place] Fecal Occult (A) 1:09 PM CDT [facility] Blood [facility] Specimen Anatomical Collection Method Collection Time Receive d Time (Source) Location / / Volume Laterality Stool 09/01/2020 8:10 AM CDT 12:36 PM CDT D. Dontrell Woodward MD LAB BODY FLUIDS AND STOOLS O RDERABLES Performing Organization Address City/State/ZIP Code Phon e Number [facility] [address] [place] [address] documented in this encounter Visit Diagnoses Diagnosis Anemia, unspecified type documented in this encounter Care Teams Mold Washer Relationship Specialty Start Date End Date None, Pcp PCP - General Auditor 03/29/20 12/31/[address] [facility] [place] [address] documented as of this encounter
--- OUTSIDE RECORDS SUMMARY | 2022-03-08 11:00 | XMS_ITS | Encounter Summary ---
:1940 Author Organization [facility] Address [address] [place] [address] Care Team Providers Name Role Phone Laila Loco APRN, FARM SERVICE ADVISER Primary Care Provider [phone] Encounter Details Date Type Department Care Team Description 06/28/2019 Lab [place] Cough [address] [place], [place] [address] Social History Tobacco Use [...] AM Cough Res ults for this W/DIFF STEAM TRAP WORKER procedure are i n the results section. documented in this encounter Results (ABNORMAL) CBC Branch Off w/Diff (06/28/2019 11:22 AM STEAM TRAP WORKER) [facility] gist Method Time Signature WBC 7.1 3.5 - 10.5 06/28/2019 [facility] K/uL 1:04 PM STEAM TRAP WORKER FALLS RBC 4.87 4.30 - 06/28/2019 [facility] 5.70 M/uL 1:04 PM STEAM TRAP WORKER FALLS Hemoglobin 14.6 13.5 - 06/28/2019 [facility] 17.5 g/dL 1:04 PM STEAM TRAP WORKER FALLS Hematocrit 44.6 38.0 - 06/28/2019 [facility] 50.0 % 1:04 PM STEAM TRAP WORKER FALLS Platelets 221 150 - 450 06/28/2019 [facility] K/uL 1:04 PM STEAM TRAP WORKER FALLS MCV 91.6 81.2 - 06/28/2019 [facility] 95.1 fL 1:04 PM STEAM TRAP WORKER FALLS MCH 30.0 26.0 - 06/28/2019 [facility] 32.0 pg 1:04 PM STEAM TRAP WORKER FALLS MCHC 32.7 32.0 - 06/28/2019 [facility] 36.0 g/dL 1:04 PM STEAM TRAP WORKER FALLS RDW 14.5 11.8 - 06/28/2019 [facility] 15.6 % 1:04 PM STEAM TRAP WORKER FALLS Lymphocytes % 18.9 18.0 - 06/28/2019 [facility] 45.0 % 1:04 PM STEAM TRAP WORKER FALLS Mid-size Cells 5.6 3.3 - 10.1 06/28/2019 [facility] % 1:04 PM STEAM TRAP WORKER FALLS Granulocytes/Urszula 75.5 (H) 45.8 - 06/28/2019 [facility] trophils 73.7 % 1:04 PM STEAM TRAP WORKER FALLS Lymphocytes 1.3 0.9 - 2.9 06/28/2019 [facility] Absolute K/uL 1:04 PM STEAM TRAP WORKER FALLS MIDS Absolute 0.4 0.2 - 0.8 06/28/2019 [facility] K/uL 1:04 PM STEAM TRAP WORKER FALLS Granulocytes/Urszula 5.4 2.1 - 8.7 06/28/2019 [facility] trophils K/uL 1:04 PM STEAM TRAP WORKER FALLS Absolute Specimen Anatomical Collection Method Collection Time Receive d Time (Source) Location / / Volume Laterality Blood 06/28/2019 11:22 06/28/2019 AM STEAM TRAP WORKER 11:22 AM STEAM TRAP WORKER Laila Loco APRN, FARM SERVICE ADVISER LAB BLOOD ORDERABLES Performing Organization Address City/State/ZIP Code Phon e Number [facility] [address] [place] [address] documented in this encounter Visit Diagnoses Diagnosis Cough documented in this encounter Care Teams Paper Final Inspector Relationship Specialty Start Date End Date Laila Loco APRN, FARM SERVICE ADVISER PCP - General 12/09/17 01/10/[address] [place] [address] [place] [id number] documented as of this encounter
--- OUTSIDE RECORDS SUMMARY | 2022-03-08 11:00 | XMS_ITS | Encounter Summary ---
:1940 Author Organization [facility] Address [address] [place] [address] Care Team Providers Name Role Phone None, Pcp Primary Care Provider Unavailable Encounter Details Date Type Department Care Team Description 10/15/2020 Telephone [place] Elisha Woodward MD [address] [facility] [address] [place], [place] [address] [place], [place] [phone] [address] (Wo rk) Social History Tobacco Use Types [...] on filedocumented in this encounter Care Teams Bobbin Winder Tender Relationship Specialty Start Date End Date None, Pcp PCP - General Constitutional Law Professor 03/29/20 12/31/20 210 [place] [address] documented as of this encounter
--- OUTSIDE RECORDS SUMMARY | 2022-03-08 11:00 | XMS_ITS | Encounter Summary ---
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, unspecified vessel or lesion type, unspecified whether [place] or transplanted heart; [place], [place] [address] Immunization due; [phone] [place] Excessive cerumen in ear [place] [address] Social History Tobacco Use Types Packs/Day Years [...] Comments Blood Pressure 140/80 03/29/2020 10:39 AM CONSUMER MARKETING MANAGER Pulse 94 03/29/2020 10:39 AM CONSUMER MARKETING MANAGER Temperature 37 ??C (98.6 ??F) 03/29/2020 10:39 AM CONSUMER MARKETING MANAGER Respiratory Rate 16 03/29/2020 10:39 AM CONSUMER MARKETING MANAGER Oxygen Saturation 91% 03/29/2020 10:39 AM CONSUMER MARKETING MANAGER Inhaled Oxygen Concentration - - Weight 70.5 kg (155 lb 6.4 oz) 03/29/2020 10:39 AM CONSUMER MARKETING MANAGER Height 167.4 cm (5' 5.91) 03/29/2020 10:39 AM CONSUMER MARKETING MANAGER Body Mass Index 25.15 03/29/2020 10:39 AM CONSUMER MARKETING MANAGER documented in this encounter Progress Notes Elisha [...] though he also sees providers at the [facility] site here in [place]. 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 Just my own personal review SMOKING QUIT [...] he was working he worked in the [employer] business he has been for 52 years [...] unspecified vessel or lesion type, unspecified whether [place] or transplanted heart - nitroglycerin (NITROSTAT) 0.4 [...] prescription for Debrox solution that he can pickle maker at his local pharmacy. Returnas needed. UMER MARKETING MANAGER documented in this encounter Miscellaneous Notes Addendum Note - Kathleen Pruitt RN - 03/29/2020 10:40 AM CONSUMER MARKETING MANAGER Addended by: KATHLEEN PRUITT on: 03/31/2020 09:15 AM Modules accepted: Orders UMER MARKETING MANAGER Addendum Note - Kathleen Pruitt RN - 03/29/2020 10:40 AM CONSUMER MARKETING MANAGER Addended by: KATHLEEN PRUITT on: 03/31/2020 09:47 AM Modules accepted: Orders UMER MARKETING MANAGER documented in this encounter Plan of [...] unspecified vessel or lesion type, unspecified whether [place] or transplant ed heart Immunization due Excessive cerumen in ear canal, bilatera l documented in this encounter Care Teams Rotary Machine Operator Relationship Specialty Start Date End Date None, Pcp PCP - General Student Affairs Vice President 03/29/20 12/31/[address] [place] [address] documented as of this encounter
--- OUTSIDE RECORDS SUMMARY | 2022-03-08 11:00 | XMS_ITS | Encounter Summary ---
:1940 Author Organization [facility] Address [address] [place] [address] Care Team Providers Name Role Phone Unavailable Primary Care Provider Unavailable Reason for Visit Reason Comments Med Refill Encounter Details Date Type Department Care Team Description 03/07/2020 Refill Wendy Pillai Gastroesophageal reflux [address] [facility] EMD Lara disease without esophagitis [place] [address] Social History Tobacco Use Types Packs/Day Years [...] - 03/07/2020 1:59 PM CST Please advise VIOR MANAGEMENT SPECIALIST Telephone Encounter - Ellen Delgado RN - 03/07/2020 1:38 PM CST Margarito hanna patient--please advise on appointment/refill VIOR MANAGEMENT SPECIALIST Telephone Encounter - Isabel Cardoso MA - [...] to assist patient with scheduling. Thank you! VIOR MANAGEMENT SPECIALIST documented in this encounter Plan of Treatment Not on filedocumented as of this encounter Visit Diagnoses Diagnosis Gastroesophageal reflux disease without esophagitis Esophageal reflux documented in this encounter
--- OUTSIDE RECORDS SUMMARY | 2022-03-08 11:00 | XMS_ITS | Encounter Summary ---
:1940 Author Organization [facility] Address [address] [place] [address] Care Team Providers Name Role Phone None, Pcp Primary Care Provider Unavailable Encounter Details Date Type Department Care Team Description 10/15/2020 Orders Only [place] Elisha Woodward MD [address] [facility] [address] [place], [place] [address] [place], [place] [phone] [address] (Wo rk) Social History Tobacco Use Types [...] on filedocumented in this encounter Care Teams Grey Roll Man Relationship Specialty Start Date End Date None, Pcp PCP - General Justice Court Judge 03/29/20 12/31/20 210 [place] [address] documented as of this encounter
--- OUTSIDE RECORDS SUMMARY | 2022-03-08 11:00 | XMS_ITS | Encounter Summary ---
:1940 Author Organization [facility] Address [address] [place] [address] Care Team Providers Name Role Phone None, Pcp Primary Care Provider Unavailable Encounter Details Date Type Department Care Team Description 08/27/2020 Orders Only [place] Elisha Woodward MD [address] [facility] [address] [place], [place] [address] [place], [place] [phone] (Wo rk) Social History Tobacco Use Types [...] on filedocumented in this encounter Care Teams Screw Machine Adjuster Automatic Relationship Specialty Start Date End Date None, Pcp PCP - General Hand Thermal Cutter 03/29/20 12/31/20 210 [place] [address] documented as of this encounter
--- OUTSIDE RECORDS SUMMARY | 2022-03-08 11:00 | XMS_ITS | Encounter Summary ---
:1940 Author Organization [facility] Address [address] [place] [address] Care Team Providers Name Role Phone None, Pcp Primary Care Provider Unavailable Reason for Visit Reason Onset Date Comments Lab result 09/01/2020 Encounter Details Date Type Department Care Team Description 09/01/2020 Telephone [place] Elisha Woodward MD Lab result [address] [place], [place] [address] [place], [place] [phone] (Wo rk) Social History Tobacco Use Types [...] for the very basics like Not h ltitle at all 04/04/2020 food, housing, medical care, [...] if possible. Please call Pt at home [phone] or cell [phone] to advise. documented in this encounter Plan of Treatment Not on filedocumented as of this encounter Visit Diagnoses Diagnosis Colon cancer screening - Primary Special screening for malignant neoplasm s, colon documented in this encounter Care Teams Glue Machine Operator Relationship Specialty Start Date End Date None, Pcp PCP - General Public Health Staff Nurse 03/29/20 12/31/20 210 [place] [address] documented as of this encounter
--- OUTSIDE RECORDS SUMMARY | 2022-03-08 11:00 | XMS_ITS | Encounter Summary ---
:[address] [facility] Address [address] [place] [address] Care Team Providers Name Role Phone Laila Loco APRN, IRA Primary Care Provider [phone] Encounter Details Date Type Department Care Team [...] on filedocumented in this encounter Care Teams Pipe Fitter Supervisor Maintenance Relationship Specialty Start Date End Date Laila Loco, ACCOUNTS PAYABLE ANALYST, FILER AND SANDER PCP - General 12/09/17 01/10/20 100 [facility] [place] [address] documented as of this encounter
--- OUTSIDE RECORDS SUMMARY | 2022-03-08 11:00 | XMS_ITS | Encounter Summary ---
:1940 Author Organization [facility] Address [address] [place] [address] Care Team Providers Name Role Phone Laila Loco ANDROID PROGRAMMER, REDUCTION FURNACE OPERATOR Primary Care Provider [phone] Reason for Visit Reason Onset Date Comments refill medication 09/02/2019 Encounter Details Date Type Department Care Team Description 09/02/2019 Telephone [place], refill medication [address] ANDROID PROGRAMMER, [place], [place] [address] [address] [facility] [address] [phone] [place], [place] [address] Social History Tobacco Use [...] CDT Pt is at pharmacy wanting to lemon picker RX Telephone Encounter - Ellen Delgado RN - 09/02/2019 10:27 AM CDT Pt is asking for Pantoprazole to be renewed, last visit 09/2018 shows he was not taking. Pt would like 90 day supply. Pt is on his way to pharmacy now. Pt had to change pharmacy to [facility] dueto his insurance. please advise on renewal Telephone Encounter - Kanwal Zarco - 09/02/2019 9:43 AM CDT Patient is on his way to [facility] pharmacy in [facility]. (he can not use the [place] pharmacy, his insurance changed) He needs his acid reflux medication. He needs this prescription send as soon aspossible. He is asking to talk to a nurse too! [phone]. documented in this encounter Plan of Treatment Not on filedocumented as of this encounter Visit Diagnoses Diagnosis Gastroesophageal reflux disease without esophagitis Esophageal reflux documented in this encounter Care Teams Brick Chimney Supervisor Relationship Specialty Start Date End Date Laila Loco APRN, REDUCTION FURNACE OPERATOR PCP - General 12/09/17 01/10/20 [address] [facility] [address] documented as of this encounter
--- OUTSIDE RECORDS SUMMARY | 2022-03-08 11:00 | XMS_ITS | Encounter Summary ---
:[address] [facility] Address [address] [place] [address] Care Team Providers Name Role Phone None, Pcp Primary Care Provider Unavailable Reason for Referral Consultation (Routine) - Closed Specialty Diagnoses / Procedures Referred By Contact Refer red To Contact Diagnoses Anemia, unspecified type Guaiac positive stools Elisha Woodward MD [facility] [address] [address] Referral ID Status Reason Start Date Expiration Date Visits Requ ested Visits Authorized [id number] Closed 09/08/2020 09/08/2021 1 1 Reason for Visit Reason Onset Date Comments Referral 09/08/2020 Encounter Details Date Type Department Care Team Description 09/08/2020 Telephone [place] MD Referral [address] [facility] [address] [place], [place] [address] [place], [place] [phone] (Wo rk) Social History Tobacco Use Types [...] Telephone Encounter - Nihsa Morrison RN - 09/08/2020 10:41 AM CDT Patient informed. Telephone Encounter - Guillermina Bradford LPN - 09/08/2020 10:36 AM CDT Please fax referral to [facility] Telephone Encounter - Elisha Woodward MD - 09/08/2020 10:17 AM CDT I have placed a referral for [facility] to get a colonoscopy at [facility]. I have also sent to [facility]'s pharmacy [facility] in [facility] for the GoLYTELY prep. After you fax the referral to [place] in [facility] I would have you call [...] Patient would like to do this at [facility]. Please place order. Prep instructions were [...] done. We could do it down at [facility] we could do it at [facility] the [facility] site because of his underlying previous [...] up or he can stop by the [place] office and bean picker machine operator the [...] in his stool. Please call him at [phone]. documented in this encounter Plan of Treatment Scheduled Referrals Name Type Priority Associated Diagnoses [facility] External Outpatient Referral Routine Anemia, unspec ified Ordered: Referral type 09/08/2020 Guaiac positive stools documented as of this encounter Visit Diagnoses Diagnosis Anemia, unspecified type - Primary Guaiac positive stools Nonspecific abnormal finding in stool co ntents documented in this encounter Care Teams Parts Analyst Relationship Specialty Start Date End Date None, Pcp PCP - General Trust Officer 03/29/20 12/31/20 [address] [place] [address] documented as of this encounter
--- OUTSIDE RECORDS SUMMARY | 2022-03-08 11:00 | XMS_ITS | Encounter Summary ---
:1940 Author Organization [facility] Address [address] [place] [address] Care Team Providers Name Role Phone Laila Loco APRN, IRA Primary Care Provider [phone] Reason for Visit Reason Onset Date Comments Shoulder pain 11/10/2019 Encounter Details Date Type Department Care Team Description 11/10/2019 Telephone [place] Elisha Woodward MD Shoulder pain [address] [place], [place] [address] [place], [place] [phone] (Wo rk) Social History Tobacco Use Types [...] medications. Please call his cell phone at [phone]. documented in this encounter Plan of Treatment Not on filedocumented as of this encounter Visit Diagnoses Not on filedocumented in this encounter Care Teams Wind Energy Systems Installer Relationship Specialty Start Date End Date Laila Loco, MANAGER OFFICE, SOLUTION ENGINEER PCP - General 12/09/17 01/10/20 [address] [facility] [place] [address] documented as of this encounter
--- OUTSIDE RECORDS SUMMARY | 2022-03-08 11:00 | XMS_ITS | Encounter Summary ---
:1940 Author Organization Address [address] [place] [address] Care Team Providers Name Role Phone None, Pcp Primary Care Provider Unavailable Reason for Visit Reason Onset Date Comments Schedule ENT 04/05/2020 Encounter Details Date Type Department Care Team Description 04/05/2020 Telephone [facility] [place], Brendon Arceo MD Schedule ENT [address] [place] [address] Social History Tobacco Use Types Packs/Day Years [...] an appointment with ENT preferably Dr. Haney KINDERGARTEN TEACHER documented in this encounter Plan of Treatment Not on filedocumented as of this encounter Visit Diagnoses Not on filedocumented in this encounter Care Teams Carpet Tile Layer Relationship Specialty Start Date End Date None, Pcp PCP - General Brick Mason 03/29/20 12/31/20 210 [place] [address] documented as of this encounter
--- OUTSIDE RECORDS SUMMARY | 2022-03-08 11:00 | XMS_ITS | Encounter Summary ---
:1940 Author Organization [facility] Address [address] [place] [address] Care Team Providers Name Role Phone None, Pcp Primary Care Provider Unavailable Encounter Details Date Type Department Care Team Description 08/29/2020 Lab [place] Colon cancer screening; [address] [...] type documented in this encounter Care Teams Assistant Tennis Professional Relationship Specialty Start Date End Date None, Pcp PCP - General Project Account Manager 03/29/20 12/31/20 [address] [place] [address] documented as of this encounter
--- OUTSIDE RECORDS SUMMARY | 2022-03-08 11:00 | XMS_ITS | Encounter Summary ---
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 Do not crush or chew. 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
--- OUTSIDE RECORDS SUMMARY | 2022-03-08 11:00 | XMS_ITS | Encounter Summary ---
:1940 Author Organization [facility] Address [address] [place] [address] Care Team Providers Name Role Phone Laila Loco APRN, FIRE SPRINKLER FITTER Primary Care Provider [phone] Encounter Details Date Type Department Care Team Description 07/06/2019 Lab Margarito Love Decreased appetite [address] [place], [place] [address] Social History Tobacco Use [...] carlos enrique etite Results for this RATE AUTOMATIC DEVELOPER procedure are i n the results section. CBC BRANCH OFFICE Routine 07/06/2019 9:16 AM Decreased appetit e Results for this W/DIFF AUTOMATIC DEVELOPER procedure are i n the results section. SEDIMENTATION RATE, Routine 07/06/2019 9:16 AM Decreased appet ite Results for this AUTOMATED AUTOMATIC DEVELOPER procedure are i n the results section. C-REACTIVE PROTEIN Routine 07/06/2019 9:16 AM Decreased appeti te Results for this AUTOMATIC DEVELOPER procedure are i n the results section. LIPASE Routine 07/06/2019 9:16 AM Decreased appetite Res ults for this AUTOMATIC DEVELOPER procedure are i n the results section. AMYLASE Routine 07/06/2019 9:16 AM Decreased appetite Res ults for this AUTOMATIC DEVELOPER procedure are i n the results section. COMPREHENSIVE Routine 07/06/2019 9:16 AM Decreased appetite Re sults for this METABOLIC PANEL AUTOMATIC DEVELOPER procedure ar e in the results section. documented in this encounter Results (ABNORMAL) Glomerular filtration rate (GFR) (07/06/2019 9:16 AM AUTOMATIC DEVELOPER) athologist Signature GFR 58 (A) 07/06/2019 [facility] 1:32 PM [facility]EL[facility] >60 07/06/2019 [facility] Australian GFR 1:32 PM [facility] Comment: GFR calculated from serum creatinine v alue Chronic Kidney Disease less than 60 mL/m in/1.73 m2 Kidney Failure less than 15 mL/min/1.73 m2 Note: effective 09/17/06 IDMS-Traceable MDRD Study Equation used. Specimen Anatomical Collection Method Collection Time Receive d Time (Source) Location / / Volume Laterality 07/06/2019 9:16 AM 0 9:16 AUTOMATIC DEVELOPER AM AUTOMATIC DEVELOPER Laila Loco APRN, FIRE SPRINKLER FITTER LAB BLOOD ORDERABLES Performing Organization Address City/State/ZIP Code Phon e Number [facility] [address] [place] [phone] CBC Branch Off w/Diff (07/06/2019 9:16 AM AUTOMATIC DEVELOPER) athologist Signature WBC 7.1 3.5 - 10.5 07/06/2019 [facility] [place] K/uL 9:33 AM AUTOMATIC DEVELOPER [place] RBC 5.12 4.30 - 07/06/2019 [facility] [place] 5.70 M/uL 9:33 AM AUTOMATIC DEVELOPER [place] Hemoglobin 15.5 13.5 - 07/06/2019 [facility] [place] 17.5 g/dL 9:33 AM AUTOMATIC DEVELOPER [place] Hematocrit 46.5 38.0 - 07/06/2019 [facility] [place] 50.0 % 9:33 AM AUTOMATIC DEVELOPER [place] Platelets 242 150 - 450 07/06/2019 [facility] [place] K/uL 9:33 AM AUTOMATIC DEVELOPER [place] MCV 90.8 81.2 - 07/06/2019 [facility] [place] 95.1 fL 9:33 AM AUTOMATIC DEVELOPER [place] MCH 30.3 26.0 - 07/06/2019 [facility] [place] 32.0 pg 9:33 AM AUTOMATIC DEVELOPER [place] MCHC 33.3 32.0 - 07/06/2019 [facility] [place] 36.0 g/dL 9:33 AM AUTOMATIC DEVELOPER [place] RDW 14.5 11.8 - 07/06/2019 [facility] [place] 15.6 % 9:33 AM AUTOMATIC DEVELOPER [place] Lymphocytes % 19.8 18.0 - 07/06/2019 [facility] [place] 45.0 % 9:33 AM AUTOMATIC DEVELOPER [place] Mid-size Cells 9.1 3.3 - 10.1 07/06/2019 [facility] [place] % 9:33 AM AUTOMATIC DEVELOPER [place] Granulocytes/Urszula 71.1 45.8 - 07/06/2019 [facility] [place] trophils 73.7 % 9:33 AM AUTOMATIC DEVELOPER [place] Lymphocytes 1.4 0.9 - 2.9 07/06/2019 [facility] [place] Absolute K/uL 9:33 AM AUTOMATIC DEVELOPER [place] MIDS Absolute 0.6 0.2 - 0.8 07/06/2019 [facility] [place] K/uL 9:33 AM AUTOMATIC DEVELOPER [place] Granulocytes/Urszula 5.1 2.1 - 8.7 07/06/2019 [facility] [place] trophils K/uL 9:33 AM AUTOMATIC DEVELOPER [place] Absolute Specimen Anatomical Collection Method Collection Time Receive d Time (Source) Location / / Volume Laterality Blood 07/06/2019 9:16 AM 0 9:21 AUTOMATIC DEVELOPER AM AUTOMATIC DEVELOPER Laila Loco CUTTER OPERATOR HELPER, FIRE SPRINKLER FITTER LAB BLOOD ORDERABLES Performing Organization Address City/State/ZIP Code Phon e Number [facility] [place] [address] [place] [address] (ABNORMAL) Comprehensive metabolic panel (07/06/2019 9:16 AM [facility]) [facility] gist Method Time Signature Total Protein 8.6 (H) 6.3 - 8.2 07/06/2019 [facility] g/dL 1:32 PM [facility] Albumin, Serum 4.5 3.5 - 5.0 07/06/2019 [facility] g/dL 1:32 PM [facility] Total Bilirubin 1.3 (H) 0.1 - 1.0 07/06/2019 [facility] mg/dL 1:32 PM [facility] AST 26 8 - 48 U/L 07/06/2019 [facility] 1:32 PM [facility] Alkaline 134 (H) 38 - 128 07/06/2019 [facility] Phosphatase U/L 1:32 PM [facility] ALT (SGPT) 21 0 - 49 U/L 07/06/2019 [facility] 1:32 PM [facility] Sodium 140 135 - 145 07/06/2019 [facility] mEq/L 1:32 PM [facility] Potassium 4.2 3.5 - 5.1 07/06/2019 [facility] mEq/L 1:32 PM [facility] Chloride 100 98 - 107 07/06/2019 [facility] mEq/L 1:32 PM [facility] CO2 28 22 - 31 07/06/2019 [facility] mmol/L 1:32 PM [facility] BUN 13 5 - 25 07/06/2019 [facility] mg/dL 1:32 PM [facility] Creatinine 1.2 0.6 - 1.4 07/06/2019 [facility] mg/dL 1:32 PM [facility] Glucose 117 (H) 70 - 100 07/06/2019 [facility] mg/dL 1:32 PM [facility] Calcium, Total,S 9.7 8.4 - 10.2 07/06/2019 [facility] mg/dL 1:32 PM [facility] Fasting? Yes 07/06/2019 [facility] 9:21 AM [facility] Specimen Anatomical Collection Method Collection Time Receive d Time (Source) Location / / Volume Laterality Blood 07/06/2019 9:16 AM 0 AUTOMATIC DEVELOPER 12:32 PM [facility] Laila Loco APRN, CNP LAB BLOOD ORDERABLES Performing Organization Address City/[facility] Phon e Number [facility] [address] [place] [phone] (ABNORMAL) Amylase (07/06/2019 9:16 AM AUTOMATIC DEVELOPER) athologist Signature Amylase 173 (H) 30 - 110 07/06/2019 [facility] U/L 1:32 PM [facility] Specimen Anatomical Collection Method Collection Time Receive d Time (Source) Location / / Volume Laterality Blood (Blood, 07/06/2019 9:16 AM 07/06/19 20 Venous) AUTOMATIC DEVELOPER 12:32 PM AUTOMATIC DEVELOPER Laila Loco APRN, CNP LAB BLOOD ORDERABLES Performing Organization Address [facility] Phon e Number [facility] [address] [place] [phone] Lipase (07/06/2019 9:16 AM AUTOMATIC DEVELOPER) athologist [facility] Lipase 85 23 - 300 07/06/2019 [facility] U/L 1:32 PM [facility] Specimen Anatomical Collection Method Collection Time Receive d Time (Source) Location / / Volume Laterality Blood (Blood, 07/06/2019 9:16 AM 07/06/19 20 Venous) AUTOMATIC DEVELOPER 12:32 PM AUTOMATIC DEVELOPER Laila Loco APRN, CNP LAB BLOOD ORDERABLES Performing Organization Address [facility] e Number [facility] [address] [place] [address] (ABNORMAL) ESR-Sed rate (07/06/2019 9:16 AM AUTOMATIC DEVELOPER) athologist Signature Sed Rate 36 (H) 0 - 22 07/06/2019 [facility] mm/hr 1:40 PM [facility] Specimen Anatomical Collection Method Collection Time Receive d Time (Source) Location / / Volume Laterality Blood (Blood, 07/06/2019 9:16 AM 07/06/19 20 Venous) AUTOMATIC DEVELOPER 12:32 PM AUTOMATIC DEVELOPER Laila Loco APRN, CNP LAB BLOOD ORDERABLES Performing Organization Address City/[facility] Phon e Number [facility] [address] [place] [address] C-reactive protein (07/06/2019 9:16 AM AUTOMATIC DEVELOPER) P athologist Signature CRP 2.0 0.0 - 4.9 07/06/2019 [facility] mg/L 1:32 PM [facility] Specimen Anatomical Collection Method Collection Time Receive d Time (Source) Location / / Volume Laterality Blood (Blood, 07/06/2019 9:16 AM 07/06/19 20 Venous) AUTOMATIC DEVELOPER 12:32 PM AUTOMATIC DEVELOPER Laila Loco APRN, CNP LAB BLOOD ORDERABLES Performing Organization Address City/State/[facility] Code Phon e Number [facility] [address] [place] [address] documented in this encounter Visit Diagnoses Diagnosis Decreased appetite Anorexia documented in this encounter Care Teams Grinding Supervisor Relationship Specialty Start Date End Date Laila Loco APRN, CNP PCP - General 12/09/17 01/10/20 [address] [place] [address] documented as of this encounter
--- OUTSIDE RECORDS SUMMARY | 2022-03-08 11:00 | XMS_ITS | Encounter Summary ---
:1940 Author Organization [facility] Address [address] [place] [address] Care Team Providers Name Role Phone None, Pcp Primary Care Provider Unavailable Reason for Visit Reason Onset Date Comments Labs Only 08/30/2020 Encounter Details Date Type Department Care Team Description 08/30/2020 Telephone [place] None, Pcp Labs Only [address] [place], [place] [address] [place] [address] Social History Tobacco Use Types [...] PM CDT Patient informed Telephone Encounter - Elisah Woodward MD - 08/30/2020 3:31 PM CDT Order for blood testing for blood IFOBT has been placed. You may call the patient back to pharmacy picking technician this kit. Telephone Encounter - Melinda Le MA - 08/30/2020 3:27 PM CDT The hospital lab called and stated that the patient's IFOBT had to be cancelled due to the specimen being too thick. Please replace order and than the patient can be called to pharmacy picking technician another kit. documented in this encounter Plan of Treatment Not on filedocumented as of this encounter Results (ABNORMAL) Immunochemical Fecal Occult Blood (iFOBT)- outpatient (09/01/2020 8:10 AM CDT) [facility] gist Method Time Signature Immunochemical POSITIVE Negative 09/01/2020 [facility] Fecal Occult (A) 1:09 PM CDT [facility] Specimen Anatomical Collection Method Collection Time Receive d Time (Source) Location / / Volume Laterality Stool 09/01/2020 8:10 AM CDT 12:36 PM CDT Elisha Woodward MD LAB BODY FLUIDS AND STOOLS O RDERABLES Performing Organization Address City/State/ZIP Code Phon e Number [facility] [address] [place] [phone] documented in this encounter Visit Diagnoses Diagnosis Anemia, unspecified type - Primary documented in this encounter Care Teams Monkey Breeder Relationship Specialty Start Date End Date None, Pcp PCP - General Energy Risk Management Analyst 03/29/20 12/31/20 [address] [place] [address] documented as of this encounter
--- OUTSIDE RECORDS SUMMARY | 2022-03-08 11:00 | XMS_ITS | Encounter Summary ---
:1940 Author Organization [facility] Address [address] [place] [address] Care Team Providers Name Role Phone None, Pcp Primary Care Provider Unavailable Encounter Details Date Type Department Care Team Description 06/30/2020 Immunization Family Medicine [address] [place] [address] Social History Tobacco Use Types Packs/Day Years [...] on filedocumented in this encounter Care Teams Microsoft Architect Relationship Specialty Start Date End Date None, Pcp PCP - General Land Acquisition Analyst 03/29/20 12/31/20 [address] [place] [address] documented as of this encounter
--- OUTSIDE RECORDS SUMMARY | 2022-03-08 11:00 | XMS_ITS | Encounter Summary ---
:[address] [facility] Address [address] [place] [address] Care Team Providers Name Role Phone Laila Loco APRN, RADIATION / CHEMISTRY TECHNICIAN Primary Care Provider [phone] Encounter Details Date Type Department Care Team Description 11/16/2019 Lab [place] Diabetes mellitus screening; [address] Medication monitoring encoun [place], [place] [address] Social History Tobacco Use [...] AM CDT) athologist Signature Fasting? Yes 11/16/2019 [facility] 8:21 AM T [facility] Specimen Anatomical Collection Method Collection Time Receive d Time (Source) Location / / Volume Laterality 11/16/2019 8:19 AM 0 8:21 CDT AM CDT D. Dontrell Woodward MD LAB BLOOD ORDERABLES Performing Organization Address City/State/ZIP Code Phon e Number [facility] [address] [place] [phone] Liver panel (11/16/2019 8:19 AM CDT) athologist Signature Total Protein 7.0 6.3 - 8.2 11/16/2019 [facility] g/dL 2:07 PM [facility] Albumin, Serum 4.1 3.5 - 5.0 11/16/2019 [facility] g/dL 2:07 PM [facility] Total Bilirubin 1.0 0.1 - 1.0 11/16/2019 [facility] mg/dL 2:07 PM [facility] Bilirubin, <0.1 0.0 - 0.3 11/16/2019 [facility] Direct mg/dL 2:07 PM [facility] AST 25 8 - 48 U/L 11/16/2019 [facility] 2:07 PM [facility] Alkaline 116 38 - 128 11/16/2019 [facility] Phosphatase U/L 2:07 PM [facility] ALT (SGPT) 20 0 - 49 U/L 11/16/2019 [facility] 2:07 PM [facility] Specimen Anatomical Collection Method Collection Time Receive d Time (Source) Location / / Volume Laterality Blood 11/16/2019 8:19 AM 0 1:02 CDT PM CDT Elisha Woodward MD LAB BLOOD ORDERABLES Performing Organization Address City/State/ZIP Code Phon e Number [facility] [address] [place] [address] (ABNORMAL) Glucose, fasting (11/16/2019 8:19 AM CDT) athologist Signature Glucose 107 (H) 70 - 100 11/16/2019 [facility] mg/dL 2:07 PM CDT [facility] Specimen Anatomical Collection Method Collection Time Receive d Time (Source) Location / / Volume Laterality Blood (Blood, 11/16/2019 8:19 AM 11/16/19 20 1:02 Venous) CDT PM CDT Elisha Woodward MD LAB BLOOD ORDERABLES Performing Organization Address City/[facility]/ZIP Code Phon e Number [facility] [address] [place] [phone] documented in this encounter Visit Diagnoses Diagnosis Diabetes mellitus screening Screening for diabetes mellitus Medication monitoring encounter Encounter for therapeutic drug monitorin g documented in this encounter Care Teams Patient Registrar Relationship Specialty Start Date End Date Laila Loco APRN, RADIATION / CHEMISTRY TECHNICIAN PCP - General 12/09/17 01/10/20 100 [facility] [place] [address] documented as of this encounter
--- OUTSIDE RECORDS SUMMARY | 2022-03-08 11:00 | XMS_ITS | Encounter Summary ---
:1940 Author Organization [facility] Address [address] [place] [address] Care Team Providers Name Role Phone None, Pcp Primary Care Provider Unavailable Encounter Details Date Type Department Care Team Description 08/21/2020 Lab [place] Screening for deficiency ane elif; [address] Essential hypertension; [place], [place] [address] Diabetes mellitus screening; [phone] Hyperlipidemia, unspecified hyperlipidemia type Social History Tobacco [...] AM CDT) athologist Signature GFR >60 08/21/2020 [facility] 12:57 PM CDT [facility] >60 08/21/2020 [facility] Ivorian GFR 12:57 PM CDT [facility] Comment: [...] Organization Address City/State/ZIP Code Phon e Number [facility] [address] [place] [address] (ABNORMAL) CBC Branch Off w/Diff (08/21/2020 10:31 AM CDT) Patholo gist Method Time Signature WBC 6.7 3.5 - 10.5 08/21/2020 [facility] [place] K/uL 10:41 AM CDT [place] RBC 4.50 4.30 - 08/21/2020 [facility] [place] 5.70 M/uL 10:41 AM CDT [place] Hemoglobin 12.8 (L) 13.5 - 08/21/2020 [facility] [place] 17.5 g/dL 10:41 AM CDT [place] Hematocrit 39.8 38.0 - 08/21/2020 [facility] [place] 50.0 % 10:41 AM CDT [place] Platelets 218 150 - 450 08/21/2020 [facility] [place] K/uL 10:41 AM CDT [place] MCV 88.4 81.2 - 08/21/2020 [facility] [place] 95.1 fL 10:41 AM CDT [place] MCH 28.4 26.0 - 08/21/2020 [facility] [place] 32.0 pg 10:41 AM CDT [place] MCHC 32.2 32.0 - 08/21/2020 [facility] [place] 36.0 g/dL 10:41 AM CDT [place] RDW 14.7 11.8 - 08/21/2020 [facility] [place] 15.6 % 10:41 AM CDT [place] Lymphocytes % 27.0 % 08/21/2020 [facility] 10:41 AM CDT [place] Mid-size Cells 7.5 % 08/21/2020 [facility] 10:41 AM CDT [place] Granulocytes/Urszula 65.5 % 08/21/2020 [facility] [place] trophils 10:41 AM CDT [place] Lymphocytes 1.8 0.9 - 2.9 08/21/2020 [facility] [place] Absolute K/uL 10:41 AM CDT [place] MIDS Absolute 0.5 0.4 - 1.5 08/21/2020 [facility] [place] K/uL 10:41 AM CDT [place] Granulocytes/Urszula 4.4 1.7 - 7.0 08/21/2020 [facility] [place] trophils K/uL 10:41 AM CDT [place] Absolute Specimen Anatomical Collection Method Collection Time Receive d Time (Source) Location / / Volume Laterality 08/21/2020 10:31 08/21/2020 AM CDT 10:35 AM CDT D. Dontrell Woodward MD LAB BLOOD ORDERABLES Performing Organization Address City/State/ZIP Code Phon e Number [facility] [place] [address] [place] [address] (ABNORMAL) Lipid panel (08/21/2020 10:31 AM CDT) athologist Signature Cholesterol 166 0 - 199 08/22/2020 [facility] mg/dL 2:11 PM CDT [facility] Comment: Recommended by National Cholesterol Education Program (ATP III) -------- Cholesterol Ranges -------- <200 ?Desirable 200-239 ? Borderline high >=240 ? High Triglycerides 167 (H) 0 - 149 mg/dL 08/22/2020 2:11 PM CDT [facility] Comment: -------- TRIG Ranges -------- <150 ?Normal 150-199 ? Borderline high 200-499 ? High >=500 ? Very high HDL 37 (L) 40 - 250 mg/dL 08/22/2020 2:11 PM CDT [facility] Comment: -------- HDL Ranges -------- <40 ?Low 40-59 ?Normal >=60 ? Optimal LDL Calculated 96 0 - 99 mg/dL 08/22/2020 2:11 PM CDT [facility] Comment: -------- LDL Ranges -------- <100 ? Optimal 100-129 ?Near optimal/above op timal 130-159 ?Borderline high 160-189 ?High >=190 ?Very high Specimen Anatomical Collection Method Collection Time Receive d Time (Source) Location / / Volume Laterality Blood 08/21/2020 10:31 08/22/2020 AM CDT 12:50 PM CDT D. Dontrell Woodward MD LAB BLOOD ORDERABLES Performing Organization Address City/State/ZIP Code Phon e Number [facility] [address] [place] [address] (ABNORMAL) Basic metabolic panel (08/21/2020 10:31 AM CDT) P athologist Signature Sodium 142 135 - 145 08/21/2020 [facility] [place] mmol/L 12:57 PM CDT [place] Potassium 3.8 3.5 - 5.1 08/21/2020 [facility] [place] mmol/L 12:57 PM CDT [place] Comment: . Chloride 105 98 - 107 mmol/L 08/21/2020 12:57 PM CDT [facility] Comment: . CO2 27 22 - 31 mmol/L 08/21/2020 12:57 PM CDT [facility] [place] [facility] Comment: . Creatinine 1.0 0.6 - 1.4 mg/dL 08/21/2020 12:57 PM CDT [facility] [place] [place] Comment: . BUN 9 5 - 25 mg/dL 08/21/2020 12:57 PM CDT [facility] [place] [place] Comment: . Glucose 105 (H) 70 - 100 mg/dL 08/21/2020 12:57 PM [facility] [place] CDT Calcium, Total,S 8.7 8.4 - 10.2 mg/dL 08/21/2020 12:57 PM [facility] [place] [place] CDT Comment: . Fasting? Yes 08/21/2020 10:35 AM CDT [facility] [place] Specimen Anatomical Collection Method Collection Time Receive d Time (Source) Location / / Volume Laterality Blood 08/21/2020 10:31 08/21/2020 AM CDT 10:35 AM CDT D. Dontrell Woodward MD LAB BLOOD ORDERABLES Performing Organization Address City/State/ZIP Code Phon e Number [facility] [place] [address] [place] [address] documented in this encounter Visit Diagnoses Diagnosis Screening for deficiency anemia Screening for other and unspecified defi ciency anemia Essential hypertension Unspecified essential hypertension Diabetes mellitus screening Screening for diabetes mellitus Hyperlipidemia, unspecified hyperlipidem ia type documented in this encounter Care Teams Admissions Assistant Relationship Specialty Start Date End Date None, Pcp PCP - General Ip Network Architect 03/29/20 12/31/20 [address] [place] [address] documented as of this encounter
--- OUTSIDE RECORDS SUMMARY | 2022-03-08 11:00 | XMS_ITS | Encounter Summary ---
:1940 Author Organization [facility] Address [address] [place] [address] Care Team Providers Name Role Phone None, Pcp Primary Care Provider Unavailable Encounter Details Date Type Department Care Team Description 07/21/2020 Immunization Family Medicine [address] [place] [address] Social History Tobacco Use Types Packs/Day Years [...] filedocumented in this encounter Care Teams Pipe Wrapping Machine Operator Relationship Specialty Start Date End Date None, Pcp PCP - General Computer Designer 03/29/20 12/31/20 [address] [place] [address] documented as of this encounter
--- OUTSIDE RECORDS SUMMARY | 2022-03-08 11:00 | XMS_ITS | Encounter Summary ---
:1940 Author Organization [facility] Address [address] [place] [address] Care Team Providers Name Role Phone None, Pcp Primary Care Provider Unavailable Reason for Visit Reason Comments Wants cholesterol checked Encounter Details Date Type Department Care Team Description 08/21/2020 Office Visit Elisha Young Hyperlipidemia, unspecified hyperlipidemia type (Primary Dx); [address] [place] Screening for deficiency anemia; [place] [address] Essential h ypertension; [address] [place] [address] Diabetes mellitus screening [phone] [place] [address] Social History Tobacco Use Types Packs/Day Years [...] on Zetia 10 mg daily from his skills auditor. His other medicationsinclude a small amount of [...] Signature Sodium 142 135 - 145 08/21/2020 [facility] [place] mmol/L 12:57 PM CDT [place] Potassium 3.8 3.5 - 5.1 08/21/2020 [facility] [place] mmol/L 12:57 PM CDT [place] Comment: . Chloride 105 98 - 107 mmol/L 08/21/2020 12:57 PM CDT [facility] [place] Comment: . CO2 27 22 - 31 mmol/L 08/21/2020 12:57 PM CDT [facility] [place] Comment: . Creatinine 1.0 0.6 - 1.4 mg/dL 08/21/2020 12:57 PM CDT [facility] [place] Comment: . BUN 9 5 - 25 mg/dL 08/21/2020 12:57 PM CDT [facility] [place] Comment: . Glucose 105 (H) 70 - 100 mg/dL 08/21/2020 12:57 PM [facility] [place] CDT Calcium, Total,S 8.7 8.4 - 10.2 mg/dL 08/21/2020 12:57 PM [facility] [place] CDT Comment: . Fasting? Yes 08/21/2020 10:35 AM CDT [facility] [place] Specimen Anatomical Collection Method Collection Time Receive d Time (Source) Location / / Volume Laterality Blood 08/21/2020 10:31 08/21/2020 AM CDT 10:35 AM CDT D. Dontrell Woodward MD LAB BLOOD ORDERABLES Performing Organization Address City/State/ZIP Code Phon e Number [facility] [place] [address] [place] [address] (ABNORMAL) Lipid panel (08/21/2020 10:31 AM CDT) athologist Signature Cholesterol 166 0 - 199 08/22/2020 [facility] mg/dL 2:11 PM CDT [facility] Comment: Recommended by National Cholesterol Education Program (ATP III) -------- Cholesterol Ranges -------- <200 ?Desirable 200-239 ? Borderline high >=240 ? High Triglycerides 167 (H) 0 - 149 mg/dL 08/22/2020 2:11 PM CDT [facility] Comment: -------- TRIG Ranges -------- <150 ?Normal 150-199 ? Borderline high 200-499 ? High >=500 ? Very high HDL 37 (L) 40 - 250 mg/dL 08/22/2020 2:11 PM CDT [facility] Comment: -------- HDL Ranges -------- <40 ?Low 40-59 ?Normal >=60 ? Optimal LDL Calculated 96 0 - 99 mg/dL 08/22/2020 2:11 PM CDT [facility] Comment: -------- LDL Ranges -------- [...] [facility] [address] [place] [address] documented in this encounter Visit Diagnoses Diagnosis Hyperlipidemia, unspecified hyperlipidem ia type - Primary Screening for deficiency anemia Screening for other and unspecified defi ciency anemia Essential hypertension Unspecified essential hypertension Diabetes mellitus screening Screening for diabetes mellitus documented in this encounter Care Teams Supervisor Laboratory Relationship Specialty Start Date End Date None, Pcp PCP - General Animal Researcher 03/29/20 12/31/20 [address] [place] [address] documented as of this encounter
--- OUTSIDE RECORDS SUMMARY | 2022-03-08 11:00 | XMS_ITS | Encounter Summary ---
:1940 Author Organization [facility] Address [address] [place] [address] Care Team Providers Name Role Phone None, Pcp Primary Care Provider Unavailable Reason for Visit Reason Onset Date Comments Review Results 10/16/2020 Encounter Details Date Type Department Care Team Description 10/16/2020 Telephone [place] None, Pcp Review Results [address] [place], [place] [address] [place], [place] [phone] Social History Tobacco Use Types Packs/Day [...] 10/25. Thank you. Telephone Encounter - Guillermina Bradofrd LPN - 10/16/2020 8:23 AM CDT Please call Obey and schedule a review results appointment. Keep a copy at the front end architect for his appointment. Send to scanning the original. documented in this encounter Plan of Treatment Not on filedocumented as of this encounter Visit Diagnoses Not on filedocumented in this encounter Care Teams Chief Technology Officer Relationship Specialty Start Date End Date None, Pcp PCP - General Photovoltaic Solar Cell Designer 03/29/20 12/31/[address] [place] [phone] documented as of this encounter
--- OUTSIDE RECORDS SUMMARY | 2022-03-08 11:00 | XMS_ITS | Encounter Summary ---
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 Rosenthal for his med refills, since Rajan Claudy is no longer with [facility]. Pt is going to be out soon and is wondering if Dr. Rosenthal could fill this until he can get in to see her. Please advise. 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
--- OUTSIDE RECORDS SUMMARY | 2022-03-08 11:00 | XMS_ITS | Encounter Summary ---
:1940 Author Organization [facility] Address [address] [place] [address] Care Team Providers Name Role Phone None, Pcp Primary Care Provider Unavailable Encounter Details Date Type Department Care Team Description 09/08/2020 Orders Only Elisha Young Colon cancer screening [address] MD Dontrell (Primary Dx) [place], [place] [address] [facility] [address] [place] [address] Social History Tobacco Use Types Packs/Day Years [...] colon documented in this encounter Care Teams Application Operations Engineer Relationship Specialty Start Date End Date None, Pcp PCP - General Aerospace Project Manager 03/29/20 12/31/20 [address] [place] [address] documented as of this encounter
--- OUTSIDE RECORDS SUMMARY | 2022-03-08 11:00 | XMS_ITS | Encounter Summary ---
:1940 Author Organization [facility] Address [address] [place] [address] Care Team Providers Name Role Phone None, Pcp Primary Care Provider Unavailable Reason for Visit Reason Onset Date Comments med question 03/31/2020 Encounter Details Date Type Department Care Team Description 03/31/2020 Telephone [place] Elisha Woodward MD med question [address] [place], [place] [address] [place], [place] [phone] (Wo rk) Social History Tobacco Use Types [...] call ahead to schedule with the nurse. [place] SECURITY PROFESSIONAL Telephone Encounter - Janki Ortiz - 03/31/2020 9:47 AM CST Pt has question about how to take his ear drops? [place] SECURITY PROFESSIONAL documented in this encounter Plan of Treatment Not on filedocumented as of this encounter Visit Diagnoses Not on filedocumented in this encounter Care Teams Ad Operations Associate Relationship Specialty Start Date End Date None, Pcp PCP - General Reel Operator 03/29/20 12/31/20 [address] [place] [address] documented as of this encounter
--- OUTSIDE RECORDS SUMMARY | 2022-03-08 11:00 | XMS_ITS | Encounter Summary ---
:1940 Author Organization [facility] Address [address] [place] [address] Care Team Providers Name Role Phone Laila Loco APRN, CLINICAL DIETICIAN Primary Care Provider [phone] Reason for Visit Reason Comments Follow-up Coughing still and not eatin g Encounter Details Date Type Department Care Team Description 07/06/2019 Office Visit [place] Laila Loco Decreased appetite [address] M, [place] WARD (Primary Dx) [place], [place] [address] [facility] [address] [place] [address] Social History Tobacco Use Types Packs/Day Years [...] Comments Blood Pressure 124/66 07/06/2019 8:34 AM BAG PRESSER Pulse 68 07/06/2019 8:34 AM BAG PRESSER Temperature 35.7 ??C (96.2 ??F) 07/06/2019 8:34 AM BAG PRESSER Respiratory Rate 16 07/06/2019 8:34 AM BAG PRESSER Oxygen Saturation 93% 07/06/2019 8:34 AM BAG PRESSER Inhaled Oxygen Concentration - - Weight 64.9 kg (143 lb) 07/06/2019 8:34 AM BAG PRESSER Height 167.6 cm (5' 5.98) 07/06/2019 8:34 AM BAG PRESSER Body Mass Index 23.09 07/06/2019 8:34 AM BAG PRESSER documented in this encounter Patient Instructions Patient InstructionsChsulema Loco APRN, CNP - 07/06/2019 8:40 AM BAG PRESSER Hold Calcium supplement One serving of coffee per day PRESSER documented in this encounter Progress Notes Laila [...] AM Decreased appeti te Results for this BAG PRESSER procedure are i n the results section. documented in this encounter Results X-ray abdomen 2 views (07/06/2019 9:35 AM BAG PRESSER) Anatomical Region Laterality Modality Body Radiographic Imaging Specimen (Source) Anatomical Collection Method Collection Time Re ceived Time Location / / Volume Laterality 07/06/2019 9:35 AM BAG PRESSER Impressions 07/06/2019 9:41 AM BAG PRESSER IMPRESSION: Bowel gas pattern is nonobstructive. If there is a clinical need for additional imaging, CT scan could be con sidered. Narrative 07/06/2019 9:41 AM BAG PRESSER INDICATION: decreased appetite COMPARISON: None available FINDINGS: [...] XR PROCEDURES C-reactive protein (07/06/2019 9:16 AM BAG PRESSER) athologist Signature CRP 2.0 0.0 - 4.9 07/06/2019 [facility] mg/L 1:32 PM BAG PRESSER [facility] Specimen Anatomical Collection Method Collection Time Receive d Time (Source) Location / / Volume Laterality Blood (Blood, 07/06/2019 9:16 AM 07/06/19 20 Venous) BAG PRESSER 12:32 PM BAG PRESSER Laila Loco APRN, CNP LAB BLOOD ORDERABLES Performing Organization Address City/[facility]/ZIP Code Phon e Number [facility] [address] [place] [address] (ABNORMAL) ESR-Sed rate (07/06/2019 9:16 AM BAG PRESSER) athologist Signature Sed Rate 36 (H) 0 - 22 07/06/2019 [facility] mm/hr 1:40 PM BAG PRESSER [facility] Specimen Anatomical Collection Method Collection Time Receive d Time (Source) Location / / Volume Laterality Blood (Blood, 07/06/2019 9:16 AM 07/06/19 20 Venous) BAG PRESSER 12:32 PM BAG PRESSER Laila Loco APRN, CNP LAB BLOOD ORDERABLES Performing Organization Address City/[facility]/ZIP Code Phon e Number [facility] [address] [place] [address] Lipase (07/06/2019 9:16 AM BAG PRESSER) athologist Signature Lipase 85 23 - 300 07/06/2019 [facility] 1:32 PM [facility] Specimen Anatomical Collection Method Collection Time Receive d Time (Source) Location / / Volume Laterality Blood (Blood, 07/06/2019 9:16 AM 07/06/19 20 Venous) BAG PRESSER 12:32 PM BAG PRESSER Laila Loco APRN, CNP LAB BLOOD ORDERABLES Performing Organization Address [facility]/ZIP [facility] Phon e Number [facility] [address] [place] [address] (ABNORMAL) Amylase (07/06/2019 9:16 AM BAG PRESSER) P athologist Signature Amylase 173 (H) 30 - 110 07/06/2019 [facility] 1:32 PM [facility] Specimen Anatomical Collection Method Collection Time Receive d Time (Source) Location / / Volume Laterality Blood (Blood, 07/06/2019 9:16 AM 07/06/19 20 Venous) BAG PRESSER 12:32 PM BAG PRESSER Laila Loco APRN, CNP LAB BLOOD ORDERABLES Performing Organization Address City/[facility] Code Phon e Number [facility] [address] [place] [address] (ABNORMAL) Comprehensive metabolic panel (07/06/2019 9:16 AM BAG PRESSER) Patholo gist Method Time Signature Total Protein 8.6 (H) 6.3 - 8.2 07/06/2019 [facility] g/dL 1:32 PM [facility] Albumin, Serum 4.5 3.5 - 5.0 07/06/2019 [facility] g/dL 1:32 PM [facility] Total Bilirubin 1.3 (H) 0.1 - 1.0 07/06/2019 [facility] mg/dL 1:32 PM [facility] AST 26 8 - 48 U/L 07/06/2019 [facility] 1:32 PM [facility] Alkaline 134 (H) 38 - 128 07/06/2019 [facility] Phosphatase U/L 1:32 PM [facility] ALT (SGPT) 21 0 - 49 U/L 07/06/2019 [facility] 1:32 PM [facility] Sodium 140 135 - 145 07/06/2019 [facility] mEq/L 1:32 PM [facility] Potassium 4.2 3.5 - 5.1 07/06/2019 [facility] mEq/L 1:32 PM [facility] Chloride 100 98 - 107 07/06/2019 [facility] mEq/L 1:32 PM [facility] CO2 28 22 - 31 07/06/2019 [facility] mmol/L 1:32 PM [facility] BUN 13 5 - 25 07/06/2019 [facility] mg/dL 1:32 PM [facility] Creatinine 1.2 0.6 - 1.4 07/06/2019 [facility] mg/dL 1:32 PM [facility] Glucose 117 (H) 70 - 100 07/06/2019 [facility] mg/dL 1:32 PM [facility] Calcium, Total,S 9.7 8.4 - 10.2 07/06/2019 [facility] mg/dL 1:32 PM [facility] Fasting? Yes 07/06/2019 [facility] 9:21 AM [facility] Specimen Anatomical Collection Method Collection Time Receive d Time (Source) Location / / Volume Laterality Blood 07/06/2019 9:16 AM 0 BAG PRESSER 12:32 PM BAG PRESSER Laila Loco APRN, CLINICAL DIETICIAN LAB BLOOD ORDERABLES Performing Organization Address City/State/ZIP Code Phon e Number [facility] [address] [place] [address] CBC [place] Off w/Diff (07/06/2019 9:16 AM BAG PRESSER) P athologist Signature WBC 7.1 3.5 - 10.5 07/06/2019 [facility] K/uL 9:33 AM BAG PRESSER [place] RBC 5.12 4.30 - 07/06/2019 [facility] 5.70 M/uL 9:33 AM BAG PRESSER [place] Hemoglobin 15.5 13.5 - 07/06/2019 [facility] 17.5 g/dL 9:33 AM BAG PR[facility]ER [place] Hematocrit 46.5 38.0 - 07/06/2019 [facility] 50.0 % 9:33 AM BAG PRESSER [place] Platelets 242 150 - 450 07/06/2019 [facility] K/uL 9:33 AM BAG PR[facility]ER [place] MCV 90.8 81.2 - 07/06/2019 [facility] 95.1 fL 9:33 AM BAG PR[facility]ER [place] MCH 30.3 26.0 - 07/06/2019 [facility] 32.0 pg 9:33 AM BAG PRESSER [place] MCHC 33.3 32.0 - 07/06/2019 [facility] 36.0 g/dL 9:33 AM BAG PR[facility]ER [place] RDW 14.5 11.8 - 07/06/2019 [facility] 15.6 % 9:33 AM BAG PR[facility] [place] Lymphocytes % 19.8 18.0 - 07/06/2019 [facility] 45.0 % 9:33 AM BAG PR[facility]ER [place] Mid-size Cells 9.1 3.3 - 10.1 07/06/2019 [facility] % 9:33 AM BAG PRESSER [place] Granulocytes/Urszula 71.1 45.8 - 07/06/2019 [facility] trophils 73.7 % 9:33 AM BAG PRESSER [place] Lymphocytes 1.4 0.9 - 2.9 07/06/2019 [facility] Absolute K/uL 9:33 AM BAG PRESSER [place] MIDS Absolute 0.6 0.2 - 0.8 07/06/2019 [facility] K/uL 9:33 AM BAG PRESSER [place] Granulocytes/Urszula 5.1 2.1 - 8.7 07/06/2019 [facility] trophils K/uL 9:33 AM BAG PRESSER [place] Absolute Specimen Anatomical Collection Method Collection Time Receive d Time (Source) Location / / Volume Laterality Blood 07/06/2019 9:16 AM 0 9:21 BAG PRESSER AM BAG PRESSER Laila Loco APRN, CLINICAL DIETICIAN LAB BLOOD ORDERABLES Performing Organization Address City/State/ZIP Code Phon e Number [facility] [place] [address] [place] [address] documented in this encounter Visit Diagnoses Diagnosis Decreased appetite - Primary Anorexia documented in this encounter Care Teams Exterminator Relationship Specialty Start Date End Date Laila Loco APRN, CLINICAL DIETICIAN PCP - General 12/09/17 01/10/[address] [place] [address] [place] [address] documented as of this encounter
--- OUTSIDE RECORDS SUMMARY | 2022-03-08 11:00 | XMS_ITS | Encounter Summary ---
:1940 Author Organization [facility] Address [address] [place] [address] Care Team Providers Name Role Phone Laila Loco APRN, IRA Primary Care Provider [phone] Reason for Visit Reason Onset Date Comments Shoulder pain 11/11/2019 Encounter Details Date Type Department Care Team Description 11/11/2019 Telephone [place] Elisha Woodward MD Shoulder pain [address] [place], [place] [address] [place], [place] [phone] (Wo rk) Social History Tobacco Use Types [...] with a nurse. Please call Pt at [phone] to advise. documented in this encounter Plan [...] City/State/ZIP Code Phon e Number [facility] [address] [place] [address] Liver panel (11/16/2019 8:19 AM CDT) P athologist Signature Total Protein 7.0 6.3 - 8.2 11/16/2019 [facility] g/dL 2:07 PM CDT [facility] Albumin, Serum 4.1 3.5 - 5.0 11/16/2019 [facility] g/dL 2:07 PM CDT [facility] Total Bilirubin 1.0 0.1 - 1.0 11/16/2019 [facility] mg/dL 2:07 PM [facility] Bilirubin, <0.1 0.0 - 0.3 11/16/2019 [facility] Direct mg/dL 2:[address] [facility] AST 25 8 - 48 U/L 11/16/2019 [facility] 2:[address] [facility] Alkaline 116 38 - 128 11/16/2019 [facility] Phosphatase U/L 2:[address] [facility] ALT (SGPT) 20 0 - 49 U/L 11/16/2019 [place] 2:[address] [facility] Specimen Anatomical Collection Method Collection Time Receive d Time (Source) Location / / Volume Laterality Blood 11/16/2019 8:19 AM 0 1:02 CDT PM CDT D. Dontrell Woodward MD LAB BLOOD ORDERABLES Performing Organization Address City/State/ZIP Code Phon e Number [facility] [address] [place] [address] documented in this encounter Visit Diagnoses Diagnosis Diabetes mellitus screening - Primary Screening for diabetes mellitus Medication monitoring encounter Encounter for therapeutic drug monitorin g documented in this encounter Care Teams Tray Line Supervisor Relationship Specialty Start Date End Date Laila Loco, SPRAYER OPERATOR, GENERAL MERCHANDISE MANAGER PCP - General 12/09/17 01/10/[address] [place] [address] documented as of this encounter
--- OUTSIDE RECORDS SUMMARY | 2022-03-08 11:00 | XMS_ITS | Encounter Summary ---
:1940 Author Organization [facility] Address [address] [place] [address] Care Team Providers Name Role Phone None, Pcp Primary Care Provider Unavailable Reason for Referral Consultation (Routine) - Closed Specialty Diagnoses / Procedures Referred By Contact Refer red To Contact Otolaryngology Diagnoses Impacted cerumen of left ear Aydin Calix MD Ear Nose Throat [address] [place], [place] [phone] Referral ID Status Reason Start Date Expiration Date Visits V isits Requested Authorized [id number] Closed Specialty 04/04/2020 04/04/2021 1 1 Services Required Scheduling Instructions Please call the ENT Laundry Manager desk at [phone]. [phone] to schedule an appointment. ATION PROTECTION SPECIALIST Reason for Visit Reason Comments Ear Problem Follow up from last week, rhonda villaseñor Encounter Details Date Type Department Care Team Description 04/04/2020 Office Visit Aydin Gil, Impacted cerumen of [address] left ear (Primary Dx) [place], [place] [address] [place] [address] [place], [place] [phone] Social History Tobacco Use Types Packs/Day Years [...] Comments Blood Pressure 128/72 04/04/2020 9:55 AM RADIATION PROTECTION SPECIALIST Pulse 69 04/04/2020 9:55 AM RADIATION PROTECTION SPECIALIST Temperature 36.9 ??C (98.4 ??F) 04/04/2020 9:55 AM RADIATION PROTECTION SPECIALIST Respiratory Rate 16 04/04/2020 9:55 AM RADIATION PROTECTION SPECIALIST Oxygen Saturation 96% 04/04/2020 9:55 AM RADIATION PROTECTION SPECIALIST Inhaled Oxygen Concentration - - Weight 70 kg (154 lb 6.4 oz) 04/04/2020 9:55 AM RADIATION PROTECTION SPECIALIST Height - - Body Mass Index 24.99 03/29/2020 10:39 AM RADIATION PROTECTION SPECIALIST documented in this encounter Patient Instructions Patient [...] Follow these instructions at home: ?? Take [id number] and prescription medicines only as told by [...] clean them according to instructions from the sales service representative and your health care provider. Contact a [...] 05/29/2005 Document Revised: 04/02/2018 Document Reviewed: 07/02/2017 [employer] Patient Education ?? 2020 [employer]. ATION PROTECTION SPECIALIST documented in this encounter Progress Notes Aydin [...] improve. Note created using voice dictation software. ATION PROTECTION SPECIALIST documented in this encounter Plan of Treatment Scheduled Referrals Name Type Priority Associated Order Schedule Diagnoses Ambulatory referral Outpatient Referral Routine Impacted cerum en of Ordered: to ENT left ear 04/04/2020 documented as of this encounter Visit Diagnoses Diagnosis Impacted cerumen of left ear - Primary Impacted cerumen documented in this encounter Care Teams Outreach Assistant Relationship Specialty Start Date End Date None, Pcp PCP - General Medical Microbiologist 03/29/20 12/31/[address] [place] [phone] documented as of this encounter
--- OUTSIDE RECORDS SUMMARY | 2022-03-08 11:01 | XMS_ITS | Encounter Summary ---
:[address] [facility] Address [address] [place] [address] Care Team Providers Name Role Phone Laila Loco CIGARETTE MAKING MACHINE CATCHER, UNDERWRITING MANAGER Primary Care Provider [phone] Reason for Visit Reason Onset Date Comments Information needed for referral 08/28/2018 Encounter Details Date Type Department Care Team Description 08/28/2018 Telephone [place] Laila Loco, Information needed for [address] CIGARETTE MAKING MACHINE CATCHER, [place] referral [place] [address] [address] [facility] [address] [address] [phone] [place], [place] [address] Social History Tobacco Use [...] - 08/28/2018 3:54 PM CDT Sophia with [facility] called requesting to speak with a nurse regarding the memory loss referral. She tried to speak with the Pt on the phone to verify information but between his hearing and memory loss she could not get any information. She tried utilizing Care Everywhere, but could only find info on the shoulder pain. Please call [phone] and ask for Sophia, if she is not available she will leave notes for whomever answers on what is needed. documented in this encounter Plan of Treatment Not on filedocumented as of this encounter Visit Diagnoses Not on filedocumented in this encounter Care Teams Bulk Cooler Installer Relationship Specialty Start Date End Date Laila Loco, CIGARETTE MAKING MACHINE CATCHER, UNDERWRITING MANAGER PCP - General 12/09/17 01/10/[address] [place] [address] documented as of this encounter
--- OUTSIDE RECORDS SUMMARY | 2022-03-08 11:01 | XMS_ITS | Encounter Summary ---
:1940 Author Organization [facility] Address [address] [place] [address] Care Team Providers Name Role Phone Laila Loco BOILER ROOM OPERATOR, AIRCRAFT ENGINEER Primary Care Provider [phone] Reason for Visit Reason Comments Med Refill Encounter Details Date Type Department Care Team Description 11/23/2018 Refill [place] Laila Loco, Gastroesophageal reflux [address] BOILER ROOM OPERATOR, AIRCRAFT ENGINEER disease without [place], [place] [address] esophagitis [address] [place] [address] Social History Tobacco Use Types Packs/Day Years [...] reflux documented in this encounter Care Teams Repairer Recreational Vehicle Relationship Specialty Start Date End Date Laila Loco, BOILER ROOM OPERATOR, AIRCRAFT ENGINEER PCP - General 12/09/17 01/10/20 100 [facility] [address] documented as of this encounter
--- OUTSIDE RECORDS SUMMARY | 2022-03-08 11:01 | XMS_ITS | Encounter Summary ---
:1940 Author Organization [facility] Address [address] [place] [address] Care Team Providers Name Role Phone Laila Loco APRN, PAPER MACHINE SUPERVISOR Primary Care Provider [phone] Reason for Visit Reason Comments Cerumen Impaction Encounter Details Date Type Department Care Team Description 10/15/2018 Office Visit [place] Laila Loco Impacted cerumen of [address] M, ED, [place] right ear (Primary [place] [address] Dx) [address] [place] [address] Social History Tobacco Use Types Packs/Day Years [...] his right ear, as recommended by his hematology technician. The patient has had decreased hearing. No [...] cerumen documented in this encounter Care Teams Braider Operator Relationship Specialty Start Date End Date Laila Loco APRN, CNP PCP - General 12/09/17 01/10/[address] [place] [address] documented as of this encounter
--- OUTSIDE RECORDS SUMMARY | 2022-03-08 11:01 | XMS_ITS | Encounter Summary ---
:1940 Author Organization [facility] Address [address] [place] [address] Care Team Providers Name Role Phone Laila Loco UTILITY SALES AND SERVICE MANAGER, PARTS LISTER Primary Care Provider [phone] Reason for Visit Reason Onset Date Comments Med refills needed 09/15/2018 Encounter Details Date Type Department Care Team Description 09/15/2018 Telephone [place] Laila Loco, Med refills needed [address] UTILITY SALES AND SERVICE MANAGER, [place], [place] [address] [address] [facility] [address] [phone] [place], [place] [address] Social History Tobacco Use [...] throat. Pt would like these sent to [facility]. Please call Pt at [phone] to advise. 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
--- OUTSIDE RECORDS SUMMARY | 2022-03-08 11:01 | XMS_ITS | Encounter Summary ---
:1940 Author Organization [facility] Address [address] [place] [address] Care Team Providers Name Role Phone Laila Loco APRN, IRA Primary Care Provider [phone] Reason for Visit Reason Comments Ear Fullness right ear Encounter Details Date Type Department Care Team Description 10/13/2018 Office Visit [place] Laila Loco Patient left without [address] M, [place] WARD being seen (Primary [place] [address] Dx) [address] [place] [address] Social History Tobacco Use Types Packs/Day Years [...] he left and had to leave to flower buncher or picker his grandchildren, and will return for an ear wash later this week. documented in this encounter Plan of Treatment Not on filedocumented as of this encounter Visit Diagnoses Diagnosis Patient left without being seen - Primar y Surgical or other procedure not carried out because of patient's decision documented in this encounter Care Teams Adoption Agent Relationship Specialty Start Date End Date Laila Loco APRN, BI TESTER PCP - General 12/09/17 01/10/20 100 [place] [address] documented as of this encounter
--- OUTSIDE RECORDS SUMMARY | 2022-03-08 11:01 | XMS_ITS | Encounter Summary ---
:[address] [facility] Address [address] [place] [address] Care Team Providers Name Role Phone Laila Loco CAKE KNOCKER, FERRYBOAT OPERATOR HELPER Primary Care Provider [phone] Encounter Details Date Type Department Care Team Description 04/26/2019 Orders Only [place] Laila Loco, Pneumonia of right [address] CAKE KNOCKER, FERRYBOAT OPERATOR HELPER lower lobe due to [place], [place] [address] infectious organism [address] [place] [address] (HCC) (Primary Dx) [phone] Social History Tobacco Use Types Packs/Day Years [...] Primary documented in this encounter Care Teams Diplomatic Officer Relationship Specialty Start Date End Date Laila Loco, CAKE KNOCKER, FERRYBOAT OPERATOR HELPER PCP - General 12/09/17 01/10/[address] [place] [address] [place] [address] documented as of this encounter
--- OUTSIDE RECORDS SUMMARY | 2022-03-08 11:01 | XMS_ITS | Encounter Summary ---
:1940 Author Organization [facility] Address [address] [place] [address] Care Team Providers Name Role Phone Laila Loco APRN, IRA Primary Care Provider Reason for Visit Reason Comments Cough Encounter Details Date Type Department Care Team Description 06/28/2019 Office Visit [place] Cough (Primary Dx); [address] M, [place] WARD Irregular heart rate [place] [address] [facility] [address] [place] [address] Social History Tobacco Use Types Packs/Day Years [...] Comments Blood Pressure 130/60 06/28/2019 10:33 AM MOTHER REPAIRER Pulse 66 06/28/2019 10:33 AM MOTHER REPAIRER Temperature 36.4 ??C (97.6 ??F) 06/28/2019 10:33 AM MOTHER REPAIRER Respiratory Rate 16 06/28/2019 10:33 AM MOTHER REPAIRER Oxygen Saturation 97% 06/28/2019 10:33 AM MOTHER REPAIRER Inhaled Oxygen Concentration - - Weight 65.5 kg (144 lb 8 oz) 06/28/2019 10:33 AM MOTHER REPAIRER Height 167.6 cm (5' 6) 06/28/2019 10:33 AM MOTHER REPAIRER Body Mass Index 23.32 06/28/2019 10:33 AM MOTHER REPAIRER documented in this encounter Patient Instructions Patient InstructionsChsulema Loco APRN, CNP - 06/28/2019 10:20 AM MOTHER REPAIRER Zpak ER REPAIRER documented in this encounter Progress Notes Laila [...] his symptoms started before he traveled to [facility] 5 days ago, returning on Friday 2, [...] plan of care. Laila Loco APRN, IRA ER REPAIRER documented in this encounter Plan of Treatment Not on filedocumented as of this encounter Procedures Procedure Name Priority Date/Time Associated Diagnosis Comme nts XR CHEST 2 VIEWS Routine 06/28/2019 11:30 AM Cough Resu lts for this MOTHER REPAIRER procedure are i n the results section. ECG 12-LEAD Routine 06/28/2019 12:00 AM Irregular heart rate Results for this MOTHER REPAIRER procedure are i n the results section. documented in this encounter Results X-ray Chest 2 Views (06/28/2019 11:30 AM MOTHER REPAIRER) Anatomical Region Laterality Modality Body Radiographic Imaging Specimen (Source) Anatomical Collection Method Collection Time Re ceived Time Location / / Volume Laterality 06/28/2019 11:30 AM MOTHER REPAIRER Impressions 06/28/2019 11:39 AM MOTHER REPAIRER IMPRESSION: Stable peripheral right basal interstiti al prominence which is likely postinflammatory fibrotic stranding. ??R esidual pneumonia is not totally excluded. Narrative 06/28/2019 11:39 AM MOTHER REPAIRER INDICATION: cough COMPARISON: 04/22/2019 FINDINGS: CXR: Min [...] pneumonia is not totally excluded. Laila Loco BATHING SUIT MAKER, LOCOMOTIVE OILER IMG XR PROCEDURES (ABNORMAL) CBC Branch Off w/Diff (06/28/2019 11:22 AM MOTHER REPAIRER) [facility] Method Time Signature WBC 7.1 3.5 - 10.5 06/28/2019 [facility] K/uL 1:04 PM MOTHER REPAIRER FALLS RBC 4.87 4.30 - 06/28/2019 [facility] 5.70 M/uL 1:04 PM MOTHER REPAIRER FALLS Hemoglobin 14.6 13.5 - 06/28/2019 [facility] 17.5 g/dL 1:04 PM MOTHER REPAIRER FALLS Hematocrit 44.6 38.0 - 06/28/2019 [facility] 50.0 % 1:04 PM MOTHER REPAIRER FALLS Platelets 221 150 - 450 06/28/2019 [facility] K/uL 1:04 PM MOTHER REPAIRER FALLS MCV 91.6 81.2 - 06/28/2019 [facility] 95.1 fL 1:04 PM MOTHER REPAIRER FALLS MCH 30.0 26.0 - 06/28/2019 [facility] 32.0 pg 1:04 PM MOTHER REPAIRER FALLS MCHC 32.7 32.0 - 06/28/2019 [facility] 36.0 g/dL 1:04 PM MOTHER REPAIRER FALLS RDW 14.5 11.8 - 06/28/2019 [facility] 15.6 % 1:04 PM MOTHER REPAIRER FALLS Lymphocytes % 18.9 18.0 - 06/28/2019 [facility] 45.0 % 1:04 PM MOTHER REPAIRER FALLS Mid-size Cells 5.6 3.3 - 10.1 06/28/2019 [facility] % 1:04 PM MOTHER REPAIRER FALLS Granulocytes/Urszula 75.5 (H) 45.8 - 06/28/2019 [facility] trophils 73.7 % 1:04 PM MOTHER REPAIRER FALLS Lymphocytes 1.3 0.9 - 2.9 06/28/2019 [facility] Absolute K/uL 1:04 PM MOTHER REPAIRER FALLS MIDS Absolute 0.4 0.2 - 0.8 06/28/2019 [facility] K/uL 1:04 PM MOTHER REPAIRER FALLS Granulocytes/Urszula 5.4 2.1 - 8.7 06/28/2019 [facility] trophils K/uL 1:04 PM MOTHER REPAIRER FALLS Absolute Specimen Anatomical Collection Method Collection Time Receive d Time (Source) Location / / Volume Laterality Blood 06/28/2019 11:22 06/28/2019 AM MOTHER REPAIRER 11:22 AM MOTHER REPAIRER Laila Loco APRN, CNP LAB BLOOD ORDERABLES Performing Organization Address City/State/ZIP Code Phon e Number [facility] [place] [address] [place] [address] ECG 12 lead (06/28/2019 12:00 AM MOTHER REPAIRER) Narrative 06/28/2019 12:00 AM MOTHER REPAIRER This result has an attachment that is no t available. ECG for irregular heart rhythm performed , patient tolerated procedure well Laila Loco APRN, CNP ECG ORDERABLES documented in this encounter Visit Diagnoses Diagnosis Cough - Primary Irregular heart rate documented in this encounter Care Teams Enamel Dipper Relationship Specialty Start Date End Date Laila Loco APRN, CNP PCP - General 12/09/17 01/10/20 100 [place] [address] documented as of this encounter
--- OUTSIDE RECORDS SUMMARY | 2022-03-08 11:01 | XMS_ITS | Encounter Summary ---
:1940 Author Organization [facility] Address [address] [place] [address] Care Team Providers Name Role Phone Laila Loco MOLDER INFLATED BALL, SEARCH ADVERTISING STRATEGIST Primary Care Provider Encounter Details Date Type Department Care Team Description 04/26/2019 Orders Only [place] Laila Loco, Pneumonia of right [address] MOLDER INFLATED BALL, SEARCH ADVERTISING STRATEGIST lower lobe due to [place], [place] [address] infectious organism [address] [place] [address] (HCC) (Primary Dx) [phone] Social History Tobacco Use Types Packs/Day Years [...] Primary documented in this encounter Care Teams Security Controls Assessor Relationship Specialty Start Date End Date Laila Loco, MOLDER INFLATED BALL, SEARCH ADVERTISING STRATEGIST PCP - General 12/09/17 01/10/[address] [place] [address] [place] [address] documented as of this encounter
--- OUTSIDE RECORDS SUMMARY | 2022-03-08 11:01 | XMS_ITS | Encounter Summary ---
:[address] 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, unspecified vessel or lesion type, unspecified whether [place] or transplanted heart; [address] [place], [place] Cough; [phone] [address] Prediabetes; [phone] Other fatigue; (Work) Medication jose toring encounter; [...] Comments Blood Pressure 148/86 04/22/2019 9:44 AM MUSICAL ENGINEER Pulse 86 04/22/2019 8:27 AM MUSICAL ENGINEER Temperature 35.8 ??C (96.4 ??F) 04/22/2019 8:27 AM MUSICAL ENGINEER Respiratory Rate 16 04/22/2019 8:27 AM MUSICAL ENGINEER Oxygen Saturation 94% 04/22/2019 8:27 AM MUSICAL ENGINEER Inhaled Oxygen Concentration - - Weight 65 kg (143 lb 4.8 oz) 04/22/2019 8:27 AM MUSICAL ENGINEER Height 168 cm (5' 6.14) 04/22/2019 8:27 AM MUSICAL ENGINEER Body Mass Index 23.03 04/22/2019 8:27 AM MUSICAL ENGINEER documented in this encounter Patient Instructions Patient InstructionsChrismanuel Loco APRN, CNP - 04/22/2019 8:40 AM MUSICAL ENGINEER Will call with the lab results and official radiology report of the chest xray Could consider the [facility], pharmacy setting CAL ENGINEER documented in this encounter Progress Notes Laila Loco APRN, CNP - 04/22/2019 8:40 AM CST Well Adult - Estab Subjective Patient ID: Obey Vines is a 79 y.o. male presenting for the following concerns. Chief Complaint Patient presents with ??? Annual Exam HPI: The patient is a pleasant 79-year-old right hand dominant male [facility]. The patient [...] events. 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 [...] file Gets together: Not on file Attends caodaism service: Not on file Active member of [...] unspecified vessel or lesion type, unspecified whether [place] or transplanted heart - Comprehensive metabolic panel; [...] in 2 weeks. Laila Loco APRN, IRA CAL ENGINEER documented in this encounter Plan of Treatment Not on filedocumented as of this encounter Procedures Procedure Name Priority Date/Time Associated Diagnosis Comme nts XR CHEST 2 VIEWS Routine 04/22/2019 9:46 AM Cough Resul ts for this MUSICAL ENGINEER procedure are i n the results section. documented in this encounter Results X-ray Chest 2 Views (04/22/2019 9:46 AM MUSICAL ENGINEER) Anatomical Region Laterality Modality Body Radiographic Imaging Specimen (Source) Anatomical Collection Method Collection Time Re ceived Time Location / / Volume Laterality 04/22/2019 9:46 AM MUSICAL ENGINEER Impressions 04/22/2019 9:54 AM MUSICAL ENGINEER IMPRESSION: New peripheral right anterior basal lowe r lobe pneumonia Narrative 04/22/2019 9:54 AM MUSICAL ENGINEER INDICATION: cough, crackles in the left lower [...] PROCEDURES (ABNORMAL) Hemoglobin A1c (04/22/2019 9:37 AM MUSICAL ENGINEER) Analysis Performed At Patho logist Time Signature Hemoglobin A1C 5.9 (H) 4.0 - 5.6 04/22/2019 [facility] % A1C 1:05 PM [facility] Comment: Reference Range [...] Volume Laterality Blood 04/22/2019 9:37 AM 9 MUSICAL ENGINEER 12:30 PM MUSICAL ENGINEER Laila Loco APRN, IRA LAB BLOOD ORDERABLES Performing Organization Address City/State/ZIP Code Phon e Number [facility] [address] [place] [address] PSA (04/22/2019 9:37 AM MUSICAL ENGINEER) athologist Signature Total PSA 1.3 0.0 - 7.0 04/23/2019 [facility] ng/mL 2:09 PM MUSICAL ENGINEER CENTER LABORATORY Comment: The results from this [...] Volume Laterality Blood 04/22/2019 9:37 AM 9 MUSICAL ENGINEER 12:39 PM MUSICAL ENGINEER Laila Loco APRN, CNP LAB BLOOD ORDERABLES Performing Organization Address City/State/ZIP Code Phon e Number [facility] [address] [place] [address] (ABNORMAL) Lipid panel (04/22/2019 9:37 AM MUSICAL ENGINEER) athologist Signature Cholesterol 175 0 - 199 04/22/2019 [facility] mg/dL 1:05 PM [facility] Comment: Recommended by National Cholesterol Education Program (ATP III) -------- Cholesterol Ranges -------- <200 ? Desirable 200-239 ? Borderline high >=240 ? High Triglycerides 121 0 - 149 mg/dL 04/22/2019 1:05 PM [facility] Comment: -------- TRIG Ranges -------- <150 ?Normal 150-199 ? Borderline high 200-499 ? High >=500 ? Very high HDL 44 40 - 60 mg/dL 04/22/2019 1:05 PM [facility] Comment: -------- HDL Ranges -------- <40 ?Low 40-59 ?Normal >=60 ? Optimal LDL Calculated 107 (A) 0 - 99 mg/dL 04/22/2019 1:05 PM [facility] Comment: -------- LDL Ranges -------- <100 ? Optimal 100-129 ?Near optimal/above op timal 130-159 ?Borderline high 160-189 ?High >=190 ?Very high Fasting? Yes 04/22/2019 9:45 AM [facility] Specimen Anatomical Collection Method Collection Time Receive d Time (Source) Location / / Volume Laterality Blood 04/22/2019 9:37 AM 9 MUSICAL ENGINEER 12:30 PM MUSICAL ENGINEER Laila Loco APRN, NURSE CARE MANAGER LAB BLOOD ORDERABLES Performing Organization Address City/State/ZIP Code Phon e Number [facility] [address] [place] [address] (ABNORMAL) Comprehensive metabolic panel (04/22/2019 9:37 AM MUSICAL ENGINEER) [facility] gist Method Time Signature Total Protein 8.3 (H) 6.3 - 8.2 04/22/2019 [facility] g/dL 1:05 PM [facility] Albumin, Serum 4.3 3.5 - 5.0 04/22/2019 [facility] g/dL 1:05 PM [facility] Total Bilirubin 1.4 (H) 0.1 - 1.0 04/22/2019 [facility] mg/dL 1:05 PM [facility] AST 22 8 - 48 04/22/2019 [facility] U/L 1:05 PM [facility] Alkaline 135 (H) 38 - 128 04/22/2019 [facility] Phosphatase U/L 1:05 PM [facility] ALT (SGPT) 20 0 - 49 04/22/2019 [facility] U/L 1:05 PM [facility] Sodium 144 135 - 145 04/22/2019 [facility] mEq/L 1:05 PM [facility] Potassium 5.0 3.5 - 5.1 04/22/2019 [facility] mEq/L 1:05 PM [facility] Chloride 103 98 - 107 04/22/2019 [facility] mEq/L 1:05 PM [facility] CO2 30 22 - 31 04/22/2019 [facility] mmol/L 1:05 PM [facility] BUN 13 5 - 25 04/22/2019 [facility] mg/dL 1:05 PM [facility] Creatinine 1.3 0.6 - 1.4 04/22/2019 [facility] mg/dL 1:05 PM [facility] Glucose 127 (H) 70 - 100 04/22/2019 [facility] mg/dL 1:05 PM [facility] Calcium, Total,S 10.3 (H) 8.4 - 04/22/2019 [facility] 10.2 1:05 PM [facility] mg/dL LABORATORY Specimen Anatomical Collection Method Collection Time Receive d Time (Source) Location / / Volume Laterality Blood 04/22/2019 9:37 AM 9 MUSICAL ENGINEER 12:30 PM MUSICAL ENGINEER Laila Loco APRN, NURSE CARE MANAGER LAB BLOOD ORDERABLES Performing Organization Address City/State/ZIP Code Phon e Number [facility] [address] [place] [phone] CBC Branch Off w/Diff (04/22/2019 9:37 AM MUSICAL ENGINEER) P athologist Signature WBC 8.6 3.5 - 10.5 04/22/2019 [facility] K/uL 9:48 AM MUSICAL ENGINEER FALLS RBC 4.94 4.30 - 04/22/2019 [facility] 5.70 M/uL 9:48 AM MUSICAL ENGINEER FALLS Hemoglobin 15.1 13.5 - 04/22/2019 [facility] 17.5 g/dL 9:48 AM MUSICAL ENGINEER FALLS Hematocrit 45.4 38.0 - 04/22/2019 [facility] 50.0 % 9:48 AM MUSICAL ENGINEER FALLS Platelets 279 150 - 450 04/22/2019 [facility] K/uL 9:48 AM MUSICAL ENGINEER FALLS MCV 91.9 81.2 - 04/22/2019 [facility] 95.1 fL 9:48 AM MUSICAL ENGINEER FALLS MCH 30.6 26.0 - 04/22/2019 [facility] 32.0 pg 9:48 AM MUSICAL ENGINEER FALLS MCHC 33.3 32.0 - 04/22/2019 [facility] 36.0 g/dL 9:48 AM MUSICAL ENGINEER FALLS RDW 13.6 11.8 - 04/22/2019 [facility] [place] 15.6 % 9:48 AM MUSICAL ENGINEER FALLS Lymphocytes % 18.8 18.0 - 04/22/2019 [facility] [place] 45.0 % 9:48 AM MUSICAL ENGINEER FALLS Mid-size Cells 8.1 3.3 - 10.1 04/22/2019 [facility] % 9:48 AM MUSICAL ENGINEER FALLS Granulocytes/Urszula 73.1 45.8 - 04/22/2019 [facility] [place] trophils 73.7 % 9:48 AM MUSICAL ENGINEER FALLS Lymphocytes 1.6 0.9 - 2.9 04/22/2019 [facility] [place] Absolute K/uL 9:48 AM MUSICAL ENGINEER FALLS MIDS Absolute 0.7 0.2 - 0.8 04/22/2019 [facility] [place] K/uL 9:48 AM MUSICAL ENGINEER FALLS Granulocytes/Urszula 6.3 2.1 - 8.7 04/22/2019 [facility] [place] trophils K/uL 9:48 AM MUSICAL ENGINEER FALLS Absolute Specimen Anatomical Collection Method Collection Time Receive d Time (Source) Location / / Volume Laterality Blood 04/22/2019 9:37 AM 9 9:37 MUSICAL ENGINEER AM MUSICAL ENGINEER Laila Loco APRN, NURSE CARE MANAGER LAB BLOOD ORDERABLES Performing Organization Address City/State/ZIP Code Phon e Number [facility] [place] [address] [place] [address] documented in this encounter Visit Diagnoses Diagnosis Annual physical exam - Primary Routine general medical examination at a health care facility Hyperlipidemia, unspecified hyperlipidem ia type 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, unspecified vessel or lesion type, unspecified whether [place] or transplant ed heart Cough Prediabetes Other abnormal glucose Other fatigue Medication monitoring encounter Encounter for therapeutic drug monitorin g Screening PSA (prostate specific antigen ) Special screening for malignant neoplasm of prostate Screening, anemia, deficiency, iron Screening for iron deficiency anemia documented in this encounter Care Teams Conveyor Installer Relationship Specialty Start Date End Date Laila Loco APRN, NURSE CARE MANAGER PCP - General 12/09/17 01/10/[address] [place] [address] [place] [address] documented as of this encounter
--- OUTSIDE RECORDS SUMMARY | 2022-03-08 11:01 | XMS_ITS | Encounter Summary ---
:1940 Author Organization [facility] Address [address] [place] [address] Care Team Providers Name Role Phone Laila Loco MARKETING PR INTERN, [employer] MAINFRAME DEVELOPER Primary Care Provider [phone] Reason for Visit Reason Onset Date Comments Return call 04/26/2019 Encounter Details Date Type Department Care Team Description 04/26/2019 Telephone [place] Laila Loco, Return call [address] MARKETING PR INTERN, [employer] MAINFRAME DEVELOPER [place], [place] [address] [address] [facility] [address] [phone] [place], [place] [address] Social History Tobacco Use [...] Loco APRN, IRA - 04/26/2019 1:52 PM UTILITY AIDE The patient was notified of the results of his chest xray. ITY AIDE Telephone Encounter - Aliza Renee - 04/26/2019 1:22 PM CST Patient returned call from Rajan Loco. ITY AIDE documented in this encounter Plan of Treatment Not on filedocumented as of this encounter Visit Diagnoses Not on filedocumented in this encounter Care Teams Segment Block Layer Relationship Specialty Start Date End Date Laila Loco APRN, IRA PCP - General 12/09/17 01/10/20 100 [place] [address] documented as of this encounter
--- OUTSIDE RECORDS SUMMARY | 2022-03-08 11:01 | XMS_ITS | Encounter Summary ---
:1940 Author Organization [facility] Address [address] [place] [address] Care Team Providers Name Role Phone Laila Loco SWEATER OPERATOR, GRATED CHEESE MAKER Primary Care Provider [phone] Encounter Details Date Type Department Care Team Description 09/15/2018 Orders Only [place] Laila Loco, [address] SWEATER OPERATOR, GRATED CHEESE MAKER [place] [address] [address] [facility] [address] [phone] [place], [place] [address] Social History Tobacco Use [...] on filedocumented in this encounter Care Teams Willow Worker Relationship Specialty Start Date End Date Laila Loco APRN, GRATED CHEESE MAKER PCP - General 12/09/17 01/10/20 100 [facility] [place] [address] documented as of this encounter
--- OUTSIDE RECORDS SUMMARY | 2022-03-08 11:01 | XMS_ITS | Encounter Summary ---
:1940 Author Organization [facility] Address [address] [place] [address] Care Team Providers Name Role Phone Laila Loco APRN, [place] Primary Care Provider [phone] Encounter Details Date Type Department Care Team Description 04/22/2019 Lab [place] Prediabetes; [address] Screening PSA (prostate spec ific antigen); [place], [place] [address] Hyperlipidemia, unspecified hyperlipidemia type; [phone] Coronary artery 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 pectoris, unspecified vessel or lesion type, unspecified whether quileute or transplanted heart; Medication jose toring encounter; [...] 9:37 Hyperlipidemia, Results for this RATE AM BISQUE KILN PLACER unspecified procedure are i n hyperlipidemia t ype the results Coronary artery section. 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 pectoris, unspecified vessel or lesion type, unspecified whether quileute or transplanted heart Medication monitoring encounter CBC BRANCH OFFICE Routine 04/22/2019 9:37 Other fatigue Results for this W/DIFF AM BISQUE KILN PLACER Screening, anemia, procedure are in deficiency, iron the results section. PSA Routine 04/22/2019 9:37 Screening PSA Results for this AM BISQUE KILN PLACER (prostate specific procedure are in antigen) the results section. HEMOGLOBIN A1C Routine 04/22/2019 9:37 Prediabetes Results fo r this AM BISQUE KILN PLACER procedure are i n the results section. LIPID PANEL Routine 04/22/2019 9:37 Hyperlipidemia, Results f or this AM BISQUE KILN PLACER unspecified procedure are i n hyperlipidemia type the resu lts section. COMPREHENSIVE Routine 04/22/2019 9:37 Hyperlipidemia, Results for this METABOLIC PANEL AM BISQUE KILN PLACER unspecified procedure ar e in hyperlipidemia t ype the results Coronary artery section. 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 pectoris, unspecified vessel or lesion type, unspecified whether quileute or transplanted heart Medication monitoring encounter documented in this encounter Results (ABNORMAL) Glomerular filtration rate (GFR) (04/22/2019 9:37 AM BISQUE KILN PLACER) P athologist Signature GFR 53 (A) 04/22/2019 [facility] 1:05 PM [facility] CENTER LAB[facility]ATORY >60 04/22/2019 [facility] Burmese GFR 1:05 PM [facility] Comment: GFR calculated from serum creatinine v alue Chronic Kidney Disease less than 60 mL/m in/1.73 m2 Kidney Failure less than 15 mL/min/1.73 m2 Note: effective 09/17/06 IDMS-Traceable MDRD Study Equation used. Specimen Anatomical Collection Method Collection Time Receive d Time (Source) Location / / Volume Laterality 04/22/2019 9:37 AM 9 9:37 [employer]AC[facility] AM BISQUE KILN PLACER Laila Loco LAP CHECKER, COLOR TECHNICIAN LAB BLOOD ORDERABLES Performing Organization Address City/State/ZIP Code Phon e Number [facility] [address] [place] [phone] CBC Branch Off w/Diff (04/22/2019 9:37 AM BISQUE KILN PLACER) P athologist Signature WBC 8.6 3.5 - 10.5 04/22/2019 [facility] K/uL 9:48 AM [facility] [facility] [place] RBC 4.94 4.30 - 04/22/2019 [facility] 5.70 M/uL 9:48 AM [facility] [employer] [facility] [place] Hemoglobin 15.1 13.5 - 04/22/2019 [facility] 17.5 g/dL 9:48 AM [facility] [employer] [facility] [place] Hematocrit 45.4 38.0 - 04/22/2019 [facility] 50.0 % 9:48 AM [facility] [employer] [facility] [place] Platelets 279 150 - 450 04/22/2019 [facility] K/uL 9:48 AM [employer] [place] MCV 91.9 81.2 - 04/22/2019 [facility] 95.1 fL 9:48 AM [employer] [place] MCH 30.6 26.0 - 04/22/2019 [facility] 32.0 pg 9:48 AM [employer] [place] MCHC 33.3 32.0 - 04/22/2019 [facility] 36.0 g/dL 9:48 AM [employer] [place] RDW 13.6 11.8 - 04/22/2019 [facility] 15.6 % 9:48 AM [facility] [employer] [place] Lymphocytes % 18.8 18.0 - 04/22/2019 [facility] 45.0 % 9:48 AM [employer] [place] Mid-size Cells 8.1 3.3 - 10.1 04/22/2019 [facility] % 9:48 AM [facility] [place] Granulocytes/Urszula 73.1 45.8 - 04/22/2019 [facility] trophils 73.7 % 9:48 AM [facility] [place] Lymphocytes 1.6 0.9 - 2.9 04/22/2019 [facility] Absolute K/uL 9:48 AM [employer] [place] MIDS Absolute 0.7 0.2 - 0.8 04/22/2019 [facility] K/uL 9:48 AM [employer] [place] Granulocytes/Urszula 6.3 2.1 - 8.7 04/22/2019 [facility] trophils K/uL 9:48 AM [facility] [place] Absolute Specimen Anatomical Collection Method Collection Time Receive d Time (Source) Location / / Volume Laterality Blood 04/22/2019 9:37 AM 9 9:37 [employer]ACER AM BISQUE KILN PLACER Laila oLco APRN, COLOR TECHNICIAN LAB BLOOD ORDERABLES Performing Organization Address City/State/ZIP Code Phon e Number [facility] [place] [address] [place] [address] (ABNORMAL) Comprehensive metabolic panel (04/22/2019 9:37 AM BISQUE KILN PLACER) [facility] Method Time Signature Total Protein 8.3 (H) 6.3 - 8.2 04/22/2019 [place] g/dL 1:05 PM [facility] Albumin, Serum 4.3 3.5 - 5.0 04/22/2019 [place] g/dL 1:05 PM [facility] Total Bilirubin 1.4 (H) 0.1 - 1.0 04/22/2019 [place] mg/dL 1:05 PM [facility] AST 22 8 - 48 04/22/2019 [place] U/L 1:05 PM [facility] Alkaline 135 (H) 38 - 128 04/22/2019 [place] Phosphatase U/L 1:05 PM [facility] ALT (SGPT) 20 0 - 49 04/22/2019 [place] U/L 1:05 PM [facility] Sodium 144 135 - 145 04/22/2019 [place] mEq/L 1:05 PM [facility] Potassium 5.0 3.5 - 5.1 04/22/2019 [place] mEq/L 1:05 PM [facility] Chloride 103 98 - 107 04/22/2019 [place] mEq/L 1:05 PM [facility] CO2 30 22 - 31 04/22/2019 [place] mmol/L 1:05 PM [facility] BUN 13 5 - 25 04/22/2019 [place] mg/dL 1:05 PM [facility] Creatinine 1.3 0.6 - 1.4 04/22/2019 [place] mg/dL 1:05 PM [facility] Glucose 127 (H) 70 - 100 04/22/2019 [place] mg/dL 1:05 PM [facility] Calcium, Total,S 10.3 (H) 8.4 - 04/22/2019 [place] 10.2 1:05 PM [facility] mg/dL LABORATORY Specimen Anatomical Collection Method Collection Time Receive d Time (Source) Location / / Volume Laterality Blood 04/22/2019 9:37 AM 9 [employer] 12:30 PM BISQUE KILN PLACER Laila Loco LAP CHECKER, COLOR TECHNICIAN LAB BLOOD ORDERABLES Performing Organization Address City/State/ZIP Code Phon e Number [facility] [address] [place] [address] (ABNORMAL) Lipid panel (04/22/2019 9:37 AM BISQUE KILN PLACER) athologist Signature Cholesterol 175 0 - 199 04/22/2019 [facility] mg/dL 1:05 PM [facility] Comment: Recommended by National Cholesterol Education Program (ATP III) -------- Cholesterol Ranges -------- <200 ? Desirable 200-239 ? Borderline high >=240 ? High Triglycerides 121 0 - 149 mg/dL 04/22/2019 1:05 PM [facility] Comment: -------- TRIG Ranges -------- <150 ?Normal 150-199 ? Borderline high 200-499 ? High >=500 ? Very high HDL 44 40 - 60 mg/dL 04/22/2019 1:05 PM [facility] Comment: -------- HDL Ranges -------- <40 ?Low 40-59 ?Normal >=60 ? Optimal LDL Calculated 107 (A) 0 - 99 mg/dL 04/22/2019 1:05 PM [facility] Comment: -------- LDL Ranges -------- <100 ? Optimal 100-129 ?Near optimal/above op timal 130-159 ?Borderline high 160-189 ?High >=190 ?Very high Fasting? Yes 04/22/2019 9:45 AM [facility] Specimen Anatomical Collection Method Collection Time Receive d Time (Source) Location / / Volume Laterality Blood 04/22/2019 9:37 AM 9 [employer]AC[employer] 12:30 PM BISQUE KILN PLACER Laila Loco APRN, CNP LAB BLOOD ORDERABLES Performing Organization Address [facility]/ZIP Code Phon e Number [facility] [address] [place] [address] PSA (04/22/2019 9:37 AM BISQUE KILN PLACER) athologist Signature Total PSA 1.3 0.0 - 7.0 04/23/2019 [facility] ng/mL 2:09 PM [facility] Comment: The results from this [...] Volume Laterality Blood 04/22/2019 9:37 AM 9 [employer]ILN [employer]ACER 12:39 PM BISQUE KILN PLACER Laila Loco APRN, CNP LAB BLOOD ORDERABLES Performing Organization Address City/[facility]/ZIP Code Phon e Number [facility] [address] [place] [address] (ABNORMAL) Hemoglobin A1c (04/22/2019 9:37 AM BISQUE KILN PLACER) Analysis Performed At Patho logist Time Signature Hemoglobin A1C 5.9 (H) 4.0 - 5.6 04/22/2019 [place] % A1C 1:05 PM BISQUE KILN PLACER [facility] Comment: Reference Range 4.0-5.6% is [...] Volume Laterality Blood 04/22/2019 9:37 AM 9 [employer]ILN [employer]ACER 12:30 PM BISQUE KILN PLACER Laila Loco APRN, COLOR TECHNICIAN LAB BLOOD ORDERABLES Performing Organization Address City/State/ZIP Code Phon e Number [facility] [address] [place] [address] documented in this encounter Visit Diagnoses Diagnosis Prediabetes Other abnormal glucose Screening PSA (prostate specific antigen ) Special screening for malignant neoplasm of prostate Hyperlipidemia, unspecified hyperlipidem ia type 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, unspecified vessel or lesion type, unspecified whether quileute or transplant ed heart Medication monitoring encounter Encounter for therapeutic drug monitorin g Other fatigue Screening, anemia, deficiency, iron Screening for iron deficiency anemia documented in this encounter Care Teams Manager Export Relationship Specialty Start Date End Date Laila Loco APRN, COLOR TECHNICIAN PCP - General 12/09/17 01/10/[address] [place] [address] documented as of this encounter
--- OUTSIDE RECORDS SUMMARY | 2022-03-08 11:01 | XMS_ITS | Encounter Summary ---
:1940 Author Organization [facility] Address [address] [place] [address] Care Team Providers Name Role Phone Laila Loco LOSS PREVENTION ASSOCIATE, DEVELOPMENTAL THERAPIST Primary Care Provider [phone] Encounter Details Date Type Department Care Team Description 10/14/2018 Telephone [place] Laila Loco, [address] LOSS PREVENTION ASSOCIATE, [place] [address] [address] [phone] [place], [place] [address] Social History Tobacco Use [...] seen on the schedule for 10/13/18 per [facility] protocol. Telephone Encounter - Laila Loco APRN, [place] - 10/14/2018 5:47 AM CDT Please remove my schedule from October 13, 2018. Thanks Rajan documented in this encounter Plan of Treatment Not on filedocumented as of this encounter Visit Diagnoses Not on filedocumented in this encounter Care Teams Public Health Aides Teacher Relationship Specialty Start Date End Date Laila Loco APRN, DEVELOPMENTAL THERAPIST PCP - General 12/09/17 01/10/[address] [place] [address] [place] [address] documented as of this encounter
--- OUTSIDE RECORDS SUMMARY | 2022-03-08 11:01 | XMS_ITS | Encounter Summary ---
:1940 Author Organization [facility] Address [address] [place] [address] Care Team Providers Name Role Phone Laila Loco APRN, IRA Primary Care Provider [phone] Reason for Visit Reason Comments EARS PLUGGED Encounter Details Date Type Department Care Team Description 04/02/2019 Office Visit [place], Bilateral impacted [address] STACEY Kimble (Primary Dx) [place] [address] [place], [place] [address]e. [phone] [address] [place] [address] Social History Tobacco Use Types Packs/Day Years [...] Comments Blood Pressure 132/80 04/02/2019 10:41 AM IMMIGRATION CASE MANAGER Pulse 78 04/02/2019 10:41 AM IMMIGRATION CASE MANAGER Temperature 35.6 ??C (96.1 ??F) 04/02/2019 10:41 AM IMMIGRATION CASE MANAGER Respiratory Rate 16 04/02/2019 10:41 AM IMMIGRATION CASE MANAGER Oxygen Saturation 93% 04/02/2019 10:41 AM IMMIGRATION CASE MANAGER Inhaled Oxygen Concentration - - Weight 65.1 kg (143 lb 8.3 oz) 04/02/2019 10:41 AM IMMIGRATION CASE MANAGER Height 168 cm (5' 6.14) 04/02/2019 10:41 AM IMMIGRATION CASE MANAGER Body Mass Index 23.07 04/02/2019 10:41 AM IMMIGRATION CASE MANAGER documented in this encounter Progress Notes Greer Gar PA-C - 04/02/2019 11:00 AM CST Subjective Patient ID: Obey Vines is a 79 y.o. male. Chief Complaint Patient presents with ??? EARS PLUGGED HPI Patient is a 79-year-old white male who presents at the clinic today requesting to have his ears irrigated. He wears bilateral hearing aids and was to see his crisis specialist a week or so ago. He [...] irrigation completed by nursing staff. Follow-up with deer farm worker on a regular basis. Ears were irrigated by nursing staff for clearance. Patient had no concerns following irrigation. Will follow up on a as needed basis. GRATION CASE MANAGER documented in this encounter Miscellaneous Notes Assessment [...] irrigation completed by nursing staff. Follow-up with deer farm worker on a regular basis. GRATION CASE MANAGER documented in this encounter Plan of Treatment Not on filedocumented as of this encounter Visit Diagnoses Diagnosis Bilateral impacted cerumen - Primary Impacted cerumen documented in this encounter Care Teams Sales Systems Engineer Relationship Specialty Start Date End Date Laila Loco APRN, FOUNDATION RELATIONS DIRECTOR PCP - General 12/09/17 01/10/20 100 [place] [address] documented as of this encounter
--- OUTSIDE RECORDS SUMMARY | 2022-03-08 11:01 | XMS_ITS | Encounter Summary ---
:1940 Author Organization [facility] Address [address] [place] [address] Care Team Providers Name Role Phone Laila Loco APRN, IRA Primary Care Provider [phone] Encounter Details Date Type Department Care Team [...] filedocumented in this encounter Care Teams Account Support Manager Relationship Specialty Start Date End Date Laila Loco, SIDEROGRAPHIST, DOCTOR OF CHIROPRACTIC PCP - General 12/09/17 01/10/20 100 [facility] [place] [address] documented as of this encounter
--- OUTSIDE RECORDS SUMMARY | 2022-03-08 11:01 | XMS_ITS | Encounter Summary ---
:1940 Author Organization [facility] Address [address] [place] [address] Care Team Providers Name Role Phone Laila Loco APRN, WOMEN SPECIALIST Primary Care Provider [phone] Reason for Visit Reason Comments Medicare Annual Wellness Visit Subsequent Encounter Details Date Type Department Care Team Description 04/22/2019 Office Visit [place] Medicare annual wellness [address] visit, subsequent [place], [place] [address] Social History Tobacco Use [...] Comments Blood Pressure 134/68 04/22/2019 8:29 AM STRIP CLEANER Pulse 86 04/22/2019 8:29 AM STRIP CLEANER Temperature 35.8 ??C (96.4 ??F) 04/22/2019 8:29 AM STRIP CLEANER Respiratory Rate 16 04/22/2019 8:29 AM STRIP CLEANER Oxygen Saturation 94% 04/22/2019 8:29 AM STRIP CLEANER Inhaled Oxygen Concentration - - Weight 65 kg (143 lb 4.8 oz) 04/22/2019 8:29 AM STRIP CLEANER Height 168 cm (5' 6.14) 04/22/2019 8:29 AM STRIP CLEANER Body Mass Index 23.03 04/22/2019 8:29 AM STRIP CLEANER documented in this encounter Progress Notes Guillermina Bradford LPN - 04/22/2019 8:40 AM CST Annual Wellness Visit CARE TEAM / RESOURCES: Patient Care Team: Laila Loco APRN, WOMEN SPECIALIST as PCP - General Eye Care: Dr. Miranda Florence Dental Care: NONE Jose Luis (quit) Pharmacy: [facility] - [address] [address] Other: Visit Vitals BP 134/68 (BP Location: [...] pathological fracture ??? Atherosclerotic heart disease of [place] coronary artery without angina pectoris ??? Disturbance [...] on phone: None Gets together: None Attends congregational service: None Active member of club or [...] transfusion before 1991. ?? Those born between 8579-0860. Glaucoma: Medicare Part B (Medical Insurance) covers [...] of one pack a dayfor 30 years). P CLEANER documented in this encounter Plan of Treatment Not on filedocumented as of this encounter Visit Diagnoses Diagnosis Medicare annual wellness visit, subseque nt documented in this encounter Care Teams Person Investigator Relationship Specialty Start Date End Date Laila Loco APRN, WOMEN SPECIALIST PCP - General 12/09/17 01/10/20 100 [facility] [place] [address] documented as of this encounter
--- OUTSIDE RECORDS SUMMARY | 2022-03-08 11:02 | XMS_ITS | Encounter Summary ---
:1940 Author Organization [facility] Address [address] [place] [address] Care Team Providers Name Role Phone Laila Loco SOFTWARE TEST ANALYST, ADMINISTRATOR SOCIAL WELFARE Primary Care Provider [phone] Encounter Details Date Type Department Care Team Description 06/05/2018 Orders Only [place] Laila Loco, Hypokalemia (Primary [address] SOFTWARE TEST ANALYST, ADMINISTRATOR SOCIAL WELFARE Dx) [place], [place] 100 [facility] [address] [place] [address] Social History Tobacco Use Types Packs/Day Years [...] Hypopotassemia documented in this encounter Care Teams Psychiatrist Relationship Specialty Start Date End Date Laila Loco, SOFTWARE TEST ANALYST, ADMINISTRATOR SOCIAL WELFARE PCP - General 12/09/17 01/10/20 100 [facility] [place] [address] documented as of this encounter
--- OUTSIDE RECORDS SUMMARY | 2022-03-08 11:02 | XMS_ITS | Encounter Summary ---
:1940 Author Organization [facility] Address [address] [place] [address] Care Team Providers Name Role Phone Laila Loco PAPER NOVELTY MAKER, SEAMER OPERATOR Primary Care Provider [phone] Encounter Details Date Type Department Care Team Description 08/11/2018 Orders Only [place] Laila Loco, Cervical pain (neck) [address] ED, [place] (Primary Dx) [place], [place] 100 [facility] [address] [place] [address] Social History Tobacco Use Types Packs/Day Years [...] Cervicalgia documented in this encounter Care Teams Tractor Operator Laser Leveling Relationship Specialty Start Date End Date Laila Loco, PAPER NOVELTY MAKER, SEAMER OPERATOR PCP - General 12/09/17 01/10/20 100 [facility] [place] [address] documented as of this encounter
--- OUTSIDE RECORDS SUMMARY | 2022-03-08 11:02 | XMS_ITS | Encounter Summary ---
:1940 Author Organization [facility] Address [address] [place] [address] Care Team Providers Name Role Phone Laila Loco APRN, ELECTRICAL APPLIANCE REPAIRER Primary Care Provider [phone] Encounter Details Date Type Department Care Team Description 06/05/2018 Lab [place] Screening for diabetes melli tus; [address] Screening for prostate cance r; [place] [address] Screening, anemia, deficienc y, iron; [phone] Hyperlipidemia, unspecified hyperlipidemia type Social History Tobacco [...] for diabetes Results for this FILTRATION RATE PEANUT SHAKER mellitus procedure ar e in the results section. CBC BRANCH OFFICE Routine 06/05/2018 8:53 AM Screening, anemia , Results for this W/DIFF PEANUT SHAKER deficiency, iron procedure a re in the results section. PSA Routine 06/05/2018 8:53 AM Screening for prostate Results for this PEANUT SHAKER cancer procedure are i n the results section. HEMOGLOBIN A1C Routine 06/05/2018 8:53 AM Screening for diabet es Results for this PEANUT SHAKER mellitus procedure are i n the results section. LIPID PANEL Routine 06/05/2018 8:53 AM Hyperlipidemia, Result s for this PEANUT SHAKER unspecified procedure are i n hyperlipidemia type the resu lts section. BASIC METABOLIC Routine 06/05/2018 8:53 AM Screening for diabe rachael Results for this PANEL PEANUT SHAKER mellitus procedure are i n the results section. documented in this encounter Results (ABNORMAL) Glomerular filtration rate (GFR) (06/05/2018 8:53 AM PEANUT SHAKER) athologist Signature GFR 59 (A) 06/05/2018 [facility] 9:07 AM [facility] >60 06/05/2018 [facility] Maltese GFR 9:07 AM [facility] Comment: GFR calculated from serum creatinine v alue Chronic Kidney Disease less than 60 mL/m in/1.73 m2 Kidney Failure less than 15 mL/min/1.73 m2 Note: effective 09/17/06 IDMS-Traceable MDRD Study Equation used. Specimen Anatomical Collection Method Collection Time Receive d Time (Source) Location / / Volume Laterality 06/05/2018 8:53 AM 9 8:53 [facility] AM [facility]ER Laila Loco APRN, IRA LAB BLOOD ORDERABLES Performing Organization Address City/State/ZIP Code Phon e Number [facility] [address] [place] [address] (ABNORMAL) Lipid panel (06/05/2018 8:53 AM PEAN[facility] SHAK[facility]) athologist Signature Cholesterol 171 0 - 199 06/05/2018 [facility] mg/dL 1:35 PM [facility] Comment: Recommended by National Cholesterol Education Program (ATP III) -------- Cholesterol Ranges -------- <200 ? Desirable 200-239 ? Borderline high >=240 ? High Triglycerides 142 0 - 149 mg/dL 06/05/2018 1:35 PM [facility] Comment: -------- TRIG Ranges -------- <150 ?Normal 150-199 ? Borderline high 200-499 ? High >=500 ? Very high HDL 37 (A) 40 - 60 mg/dL 06/05/2018 1:35 PM [facility] Comment: -------- HDL Ranges -------- <40 ?Low 40-59 ?Normal >=60 ? Optimal LDL Calculated 106 (A) 0 - 99 mg/dL 06/05/2018 1:35 PM [facility] Comment: -------- LDL Ranges -------- <100 ? Optimal 100-129 ?Near optimal/above op timal 130-159 ?Borderline high 160-189 ?High >=190 ?Very high Specimen Anatomical Collection Method Collection Time Receive d Time (Source) Location / / Volume Laterality Blood (Blood, 06/05/2018 8:53 AM 06/05/19 19 Venous) [facility] 12:43 PM [facility] Laila Loco APRN, ELECTRICAL APPLIANCE REPAIRER LAB BLOOD ORDERABLES Performing Organization Address City/State/ZIP Code Phon e Number [facility] [address] [place] [address] (ABNORMAL) Basic metabolic panel (06/05/2018 8:53 AM PEAN[facility] SHAKER) P athologist Signature Sodium 143 135 - 145 06/05/2018 [facility] mmol/L 9:07 AM [facility] [place] Potassium 3.2 (L) 3.5 - 5.1 06/05/2018 [facility] mmol/L 9:07 AM [facility] [place] Comment: . Chloride 101 98 - 107 mmol/L 06/05/2018 9:07 AM [facility] [place] Comment: . CO2 32 (H) 22 - 31 mmol/L 06/05/2018 9:07 AM [facility] [place] Comment: . Creatinine 1.2 0.6 - 1.4 mg/dL 06/05/2018 9:07 AM [facility] [place] Comment: . BUN 14 5 - 25 mg/dL 06/05/2018 9:07 AM [facility] Comment: . Glucose 107 (H) 70 - 100 mg/dL 06/05/2018 9:07 AM [facility] [place] Calcium, Total,S 9.8 8.4 - 10.2 mg/dL 06/05/2018 9:07 AM [facility] [place] Comment: . Fasting? Yes 06/05/2018 9:00 AM [facility] CAN NON [place] Specimen Anatomical Collection Method Collection Time Receive d Time (Source) Location / / Volume Laterality Blood (Blood, 06/05/2018 8:53 AM 06/05/19 19 9:00 Venous) [facility] AM [facility] Laila Loco APRN, ELECTRICAL APPLIANCE REPAIRER LAB BLOOD ORDERABLES Performing Organization Address City/State/ZIP Code Phon e Number [facility] [address] [place] [address] (ABNORMAL) CBC Branch Off w/Diff (06/05/2018 8:53 AM [facility]) Patholo gist Method Time Signature WBC 8.7 3.5 - 10.5 06/05/2018 [facility] K/uL 9:01 AM [facility] [place] RBC 4.74 4.30 - 06/05/2018 [facility] 5.70 M/uL 9:01 AM [facility] [place] Hemoglobin 14.5 13.5 - 06/05/2018 [facility] 17.5 g/dL 9:01 AM [facility] [place] Hematocrit 43.0 38.0 - 06/05/2018 [facility] 50.0 % 9:01 AM [facility] [place] Platelets 265 150 - 450 06/05/2018 [facility] [place] K/uL 9:01 AM [place] MCV 90.7 81.2 - 06/05/2018 [facility] [place] 95.1 fL 9:01 AM [place] MCH 30.6 26.0 - 06/05/2018 [facility] [place] 32.0 pg 9:01 AM [facility] MCHC 33.7 32.0 - 06/05/2018 [facility] 36.0 g/dL 9:01 AM [place] RDW 13.8 11.8 - 06/05/2018 [facility] [place] 15.6 % 9:01 AM [place] [facility] Lymphocytes % 15.8 (L) 18.0 - 06/05/2018 [facility] [place] 45.0 % 9:01 AM [facility] [place] Mid-size Cells 8.1 3.3 - 10.1 06/05/2018 [facility] [place] % 9:01 AM [facility] Granulocytes/Urszula 76.1 (H) 45.8 - 06/05/2018 [facility] [place] trophils 73.7 % 9:01 AM [facility] [place] Lymphocytes 1.4 0.9 - 2.9 06/05/2018 [facility] [place] Absolute K/uL 9:01 AM [facility] MIDS Absolute 0.7 0.2 - 0.8 06/05/2018 [facility] [place] K/uL 9:01 AM [facility] [place] Granulocytes/Urszula 6.6 2.1 - 8.7 06/05/2018 [facility] [place] trophils K/uL 9:01 AM [facility] [place] Absolute Specimen Anatomical Collection Method Collection Time Receive d Time (Source) Location / / Volume Laterality Blood (Blood, 06/05/2018 8:53 AM 06/05/19 19 9:00 Venous) [facility]AKER AM [facility] Laila Loco APRN, ELECTRICAL APPLIANCE REPAIRER LAB BLOOD ORDERABLES Performing Organization Address City/State/ZIP Code Phon e Number [facility] [place] [address] [place] [address] PSA (06/05/2018 8:53 AM [facility]) P athologist Signature Total PSA 1.1 0.0 - 7.0 06/05/2018 [facility] ng/mL 2:05 PM [facility] Comment: The results from this [...] Blood (Blood, 06/05/2018 8:53 AM 06/05/19 Venous) [facility] 12:45 PM [facility] Laila Loco APRN, CNP LAB BLOOD ORDERABLES Performing Organization Address [facility] e Number [facility] [address] [place] [address] (ABNORMAL) Hemoglobin A1c (06/05/2018 8:53 AM [facility]AN[facility]ER) Analysis Performed At [facility] Time Signature Hemoglobin A1C 5.8 (H) 4.0 - 5.6 06/05/2018 [place] % A1C 2:32 PM [facility] Comment: Reference Range 4.0-5.6% [...] Blood (Blood, 06/05/2018 8:53 AM 06/05/19 Venous) [facility] 12:43 PM [facility] Laila Loco APRN, CNP LAB BLOOD ORDERABLES Performing Organization Address [facility] Phon e Number [facility] [address] [place] [address] documented in this encounter Visit Diagnoses Diagnosis Screening for diabetes mellitus Screening for prostate cancer Special screening for malignant neoplasm of prostate Screening, anemia, deficiency, iron Screening for iron deficiency anemia Hyperlipidemia, unspecified hyperlipidem ia type documented in this encounter Care Teams Global Cmo Relationship Specialty Start Date End Date Laila Loco, CONCEPT ARTIST, ELECTRICAL APPLIANCE REPAIRER PCP - General 12/09/17 01/10/20 100 [facility] [place] [address] documented as of this encounter
--- OUTSIDE RECORDS SUMMARY | 2022-03-08 11:02 | XMS_ITS | Encounter Summary ---
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, unspecified vessel or lesion type, unspecified whether [place] or transplanted heart (Primary Dx); [address] MED CNP Hyperlipidemia, unspecified hyperlipidem ia type; [place], [place] [address] Gastroesophageal reflux disease without esophagitis; [address] [place], [place] Impacted cerumen of left ear ; [phone] [address] Screening for diabetes mellitus; [phone] Screening, anem ia, deficiency, iron; (Work) Screening [...] Comments Blood Pressure 132/70 06/05/2018 8:02 AM VISUAL MERCHANDISE MANAGER Pulse 74 06/05/2018 8:02 AM VISUAL MERCHANDISE MANAGER Temperature 36.8 ??C (98.2 ??F) 06/05/2018 8:02 AM VISUAL MERCHANDISE MANAGER Respiratory Rate 18 06/05/2018 8:02 AM VISUAL MERCHANDISE MANAGER Oxygen Saturation 95% 06/05/2018 8:02 AM VISUAL MERCHANDISE MANAGER Inhaled Oxygen Concentration - - Weight 68.9 kg (151 lb 14.4 oz) 06/05/2018 8:02 AM VISUAL MERCHANDISE MANAGER Height 167.6 cm (5' 6) 06/05/2018 8:02 AM VISUAL MERCHANDISE MANAGER Body Mass Index 24.52 06/05/2018 8:02 AM VISUAL MERCHANDISE MANAGER documented in this encounter Patient Instructions Patient InstructionsChrismanuel Loco APRN, CNP - 06/05/2018 8:00 AM VISUAL MERCHANDISE MANAGER Prolia for osteoporosis Will call with the lab results Calcium 600 mg with Vitamin D tablets, twice daily Shingrix, check with her insurance AL MERCHANDISE MANAGER documented in this encounter Progress Notes Laila [...] unspecified whether [place] or transplanted heart (Primary) - metoprolol tartrate [...] plan of care. Laila Loco APRN, CNP AL MERCHANDISE MANAGER Rosalee Simmons MA - 06/05/2018 8:00 AM [...] rest. Dizziness passed and continued with irrigation. AL MERCHANDISE MANAGER documented in this encounter Plan of Treatment Not on filedocumented as of this encounter Procedures Procedure Name Priority Date/Time Associated Diagnosis Comme nts EAR CERUMEN REMOVAL Routine 06/05/2018 8:00 AM Impacted cerume n of Results for this VISUAL MERCHANDISE MANAGER left ear procedure are i n the results section. documented in this encounter Results (ABNORMAL) Hemoglobin A1c (06/05/2018 8:53 AM VISUAL MERCHANDISE MANAGER) Analysis Performed At Patho logist Time Signature Hemoglobin A1C 5.8 (H) 4.0 - 5.6 06/05/2018 [place] % A1C 2:32 PM [facility] Comment: Reference [...] (Blood, 06/05/2018 8:53 AM 06/05/19 19 Venous) VISUAL MERCHANDISE MANAGER 12:43 PM VISUAL MERCHANDISE MANAGER Laila Loco APRN, TALENT DIRECTOR LAB BLOOD ORDERABLES Performing Organization Address City/State/ZIP Code Phon e Number [facility] [address] [place] [address] PSA (06/05/2018 8:53 AM VISUAL MERCHANDISE MANAGER) athologist Signature Total PSA 1.1 0.0 - 7.0 06/05/2018 [facility] ng/mL 2:05 PM VISUAL MERCHANDISE MANAGER CENTER LABORATORY Comment: The results from this [...] (Blood, 06/05/2018 8:53 AM 06/05/19 19 Venous) VISUAL MERCHANDISE MANAGER 12:45 PM VISUAL MERCHANDISE MANAGER Laila Loco APRN, TALENT DIRECTOR LAB BLOOD ORDERABLES Performing Organization Address City/State/ZIP Code Phon e Number [facility] [address] [place] [address] (ABNORMAL) CBC Branch Off w/Diff (06/05/2018 8:53 AM VISUAL MERCHANDISE MANAGER) [facility] gist Method Time Signature WBC 8.7 3.5 - 10.5 06/05/2018 [facility] K/uL 9:01 AM VISUAL MERCHANDISE MANAGER [place] RBC 4.74 4.30 - 06/05/2018 [facility] 5.70 M/uL 9:01 AM VISUAL MERCHANDISE MANAGER [place] Hemoglobin 14.5 13.5 - 06/05/2018 [facility] 17.5 g/dL 9:01 AM VISUAL MERCHANDISE MANAGER [place] Hematocrit 43.0 38.0 - 06/05/2018 [facility] 50.0 % 9:01 AM VISUAL MERCHANDISE MANAGER [place] Platelets 265 150 - 450 06/05/2018 [facility] K/uL 9:01 AM VISUAL MERCHANDISE MANAGER [place] MCV 90.7 81.2 - 06/05/2018 [facility] 95.1 fL 9:01 AM VISUAL MERCHANDISE MANAGER [place] MCH 30.6 26.0 - 06/05/2018 [facility] 32.0 pg 9:01 AM VISUAL MERCHANDISE MANAGER [place] MCHC 33.7 32.0 - 06/05/2018 [facility] 36.0 g/dL 9:01 AM VISUAL MERCHANDISE MANAGER [place] RDW 13.8 11.8 - 06/05/2018 [facility] 15.6 % 9:01 AM VISUAL MERCHANDISE MANAGER [place] Lymphocytes % 15.8 (L) 18.0 - 06/05/2018 [facility] 45.0 % 9:01 AM VISUAL MERCHANDISE MANAGER [place] Mid-size Cells 8.1 3.3 - 10.1 06/05/2018 [facility] % 9:01 AM VISUAL MERCHANDISE MANAGER [place] Granulocytes/Urszula 76.1 (H) 45.8 - 06/05/2018 [facility] [place] trophils 73.7 % 9:01 AM VISUAL MERCHANDISE MANAGER [place] Lymphocytes 1.4 0.9 - 2.9 06/05/2018 [facility] [place] Absolute K/uL 9:01 AM VISUAL MERCHANDISE MANAGER [place] MIDS Absolute 0.7 0.2 - 0.8 06/05/2018 [facility] [place] K/uL 9:01 AM VISUAL MERCHANDISE MANAGER [place] Granulocytes/Urszula 6.6 2.1 - 8.7 06/05/2018 [facility] [place] trophils K/uL 9:01 AM VISUAL MERCHANDISE MANAGER [place] Absolute Specimen Anatomical Collection Method Collection Time Receive d Time (Source) Location / / Volume Laterality Blood (Blood, 06/05/2018 8:53 AM 06/05/19 19 9:00 Venous) VISUAL MERCHANDISE MANAGER AM VISUAL MERCHANDISE MANAGER Laila Loco APRN, TALENT DIRECTOR LAB BLOOD ORDERABLES Performing Organization Address City/State/ZIP Code Phon e Number [facility] [place] [address] [place] [address] (ABNORMAL) Basic metabolic panel (06/05/2018 8:53 AM VISUAL MERCHANDISE MANAGER) P athologist Signature Sodium 143 135 - 145 06/05/2018 [facility] [place] mmol/L 9:07 AM [facility] [place] Potassium 3.2 (L) 3.5 - 5.1 06/05/2018 [facility] [place] mmol/L 9:07 AM [facility] [place] Comment: . Chloride 101 98 - 107 mmol/L 06/05/2018 9:07 AM [facility] [place] Comment: . CO2 32 (H) 22 - 31 mmol/L 06/05/2018 9:07 AM [facility] [place] Comment: . Creatinine 1.2 0.6 - 1.4 mg/dL 06/05/2018 9:07 AM [facility] [place] Comment: . BUN 14 5 - 25 mg/dL 06/05/2018 9:07 AM [facility] [place] Comment: . Glucose 107 (H) 70 - 100 mg/dL 06/05/2018 9:07 AM [facility] [place] Calcium, Total,S 9.8 8.4 - 10.2 mg/dL 06/05/2018 9:07 AM [facility] [place] Comment: . Fasting? Yes 06/05/2018 9:00 AM [facility] NON [place] Specimen Anatomical Collection Method Collection Time Receive d Time (Source) Location / / Volume Laterality Blood (Blood, 06/05/2018 8:53 AM 06/05/19 19 9:00 Venous) VISUAL MERCHANDISE MANAGER AM VISUAL MERCHANDISE MANAGER Laila Loco APRN, CNP LAB BLOOD ORDERABLES Performing Organization Address City/State/ZIP Code Phon e Number [facility] [place] [address] [place] [address] (ABNORMAL) Lipid panel (06/05/2018 8:53 AM VISUAL MERCHANDISE MANAGER) athologist Signature Cholesterol 171 0 - 199 06/05/2018 [facility] mg/dL 1:35 PM [facility] Comment: Recommended by National Cholesterol Education Program (ATP III) -------- Cholesterol Ranges -------- <200 ? Desirable 200-239 ? Borderline high >=240 ? High Triglycerides 142 0 - 149 mg/dL 06/05/2018 1:35 PM [facility] Comment: -------- TRIG Ranges -------- <150 ?Normal 150-199 ? Borderline high 200-499 ? High >=500 ? Very high HDL 37 (A) 40 - 60 mg/dL 06/05/2018 1:35 PM [facility] Comment: -------- HDL Ranges -------- <40 ?Low 40-59 ?Normal >=60 ? Optimal LDL Calculated 106 (A) 0 - 99 mg/dL 06/05/2018 1:35 PM [facility] Comment: -------- LDL Ranges -------- <100 ? Optimal 100-129 ?Near optimal/above op timal 130-159 ?Borderline high 160-189 ?High >=190 ?Very high Specimen Anatomical Collection Method Collection Time Receive d Time (Source) Location / / Volume Laterality Blood (Blood, 06/05/2018 8:53 AM 06/05/19 19 Venous) VISUAL MERCHANDISE MANAGER 12:43 PM VISUAL MERCHANDISE MANAGER Laila Loco APRN, CNP LAB BLOOD ORDERABLES Performing Organization Address City/State/ZIP Code Phon e Number [facility] [address] [place] [address] Ear cerumen removal (06/05/2018 8:00 AM VISUAL MERCHANDISE MANAGER) Narrative Laila Loco APRN, CNP - 019 8:00 AM VISUAL MERCHANDISE MANAGER Rosalee Simmons MA ? 06/12/2018 ??6:53 AM [...] whether [place] or transplant ed heart - Primary Hyperlipidemia, unspecified hyperlipidem ia type Gastroesophageal reflux disease without esophagitis Esophageal reflux Impacted cerumen of left ear Impacted cerumen Screening for diabetes mellitus Screening, anemia, deficiency, iron Screening for iron deficiency anemia Screening for prostate cancer Special screening for malignant neoplasm of prostate documented in this encounter Care Teams Fashion Stylist Relationship Specialty Start Date End Date Laila Loco APRN, CNP PCP - General 12/09/17 01/10/20 100 [place] [address] documented as of this encounter
--- OUTSIDE RECORDS SUMMARY | 2022-03-08 11:02 | XMS_ITS | Encounter Summary ---
:1940 Author Organization [facility] Address [address] [place] [address] Care Team Providers Name Role Phone Laila Loco DRILL PRESS HAND, LOAN COORDINATOR Primary Care Provider [phone] Reason for Visit Reason Onset Date Comments phone call 08/17/2018 Encounter Details Date Type Department Care Team Description 08/17/2018 Telephone [place] Laila Loco, phone call [address] DRILL PRESS HAND, LOAN COORDINATOR [place], [place] [address] [address] [facility] [address] [phone] [place], [place] [address] Social History Tobacco Use [...] on filedocumented in this encounter Care Teams Telephone Sales Agent Relationship Specialty Start Date End Date Laila Loco APRN, LOAN COORDINATOR PCP - General 12/09/17 01/10/[address] [place] [address] [place] [id number] documented as of this encounter
--- OUTSIDE RECORDS SUMMARY | 2022-03-08 11:02 | XMS_ITS | Encounter Summary ---
:[address] [facility] Address [address] [place] [address] Care Team Providers Name Role Phone Laila Loco PRODUCTION PLANNING SUPERVISOR, DAIRY POWDER MIXER OPERATOR Primary Care Provider [phone] Reason for Visit Reason Onset Date Comments Med Refill 04/06/2018 Encounter Details Date Type Department Care Team Description 04/06/2018 Refill [place], Hyperlipidemia, [address] PRODUCTION PLANNING SUPERVISOR, [place] unspecified [place] [address] [address] [facility] [address] hyperlipidemia type [phone] [employer] [place], [place] [address] (Primary Dx) Social History [...] Loco APRN, CNP - 04/06/2018 12:38 PM STITCH SEPARATOR The prescription was written as requested. CH SEPARATOR Telephone Encounter - Guillermina Bradford LPN - 04/06/2018 11:34 AM CST Ezetimibe, pending Pharmacy: [facility] CH SEPARATOR documented in this encounter Plan of Treatment Not on filedocumented as of this encounter Visit Diagnoses Diagnosis Hyperlipidemia, unspecified hyperlipidem ia type - Primary documented in this encounter Care Teams Electric Locomotive Firer/Fireman Relationship Specialty Start Date End Date Laila Loco APRN, CNP PCP - General 12/09/17 01/10/20 100 [facility] [place] [id number] documented as of this encounter
--- OUTSIDE RECORDS SUMMARY | 2022-03-08 11:02 | XMS_ITS | Encounter Summary ---
:1940 Author Organization [facility] Address [address] [place] [address] Care Team Providers Name Role Phone Laila Loco CLOTHESPIN DRIER OPERATOR, FINANCIAL SYSTEMS ANALYST Primary Care Provider [phone] Reason for Visit Reason Onset Date Comments medication 08/13/2018 Encounter Details Date Type Department Care Team Description 08/13/2018 Telephone [place] Laila Loco, medication [address] CLOTHESPIN DRIER OPERATOR, FINANCIAL SYSTEMS ANALYST [place], [place] [address] [address] [facility] [address] [phone] [place], [place] [address] Social History Tobacco Use [...] after they went to a trip in [place] at the end of July. The patient did fall in [place] but she denies hitting his head. She [...] on filedocumented in this encounter Care Teams Artist'S Manager Relationship Specialty Start Date End Date Laila Loco APRN, FINANCIAL SYSTEMS ANALYST PCP - General 12/09/17 01/10/[address] [place] [address] [place] [address] documented as of this encounter
--- OUTSIDE RECORDS SUMMARY | 2022-03-08 11:02 | XMS_ITS | Encounter Summary ---
:1940 Author Organization [facility] Address [address] [place] [address] Care Team Providers Name Role Phone Laila Loco VICE PRESIDENT RISK MANAGEMENT, INSULATION MECHANIC Primary Care Provider [phone] Reason for Visit Reason Onset Date Comments referral 07/31/2018 MRI shoulder, C spin e Encounter Details Date Type Department Care Team Description 07/31/2018 Telephone [place] Laila Loco, referral (MRI [address] VICE PRESIDENT RISK MANAGEMENT, INSULATION MECHANIC shoulder, C spine) [place], [place] [address] [address] [facility] [address] [phone] [place], [place] [address] Social History Tobacco Use [...] orders for Shoulder and C spine to [facility]. documented in this encounter Plan of Treatment Not on filedocumented as of this encounter Visit Diagnoses Not on filedocumented in this encounter Care Teams Therapeutic Assistant Relationship Specialty Start Date End Date Laila Loco APRN, INSULATION MECHANIC PCP - General 12/09/17 01/10/20 100 [place] [address] documented as of this encounter
--- OUTSIDE RECORDS SUMMARY | 2022-03-08 11:02 | XMS_ITS | Encounter Summary ---
:1940 Author Organization [facility] Address [address] [place] [address] Care Team Providers Name Role Phone Laila Loco BUILDING CLEANING SUPERVISOR, TECHNICAL PROJECT LEAD Primary Care Provider [phone] Reason for Visit Reason Onset Date Comments MRI 08/10/2018 Encounter Details Date Type Department Care Team Description 08/10/2018 Telephone [place] Laila Loco, MRI [address] BUILDING CLEANING SUPERVISOR, TECHNICAL PROJECT LEAD [place] [address] [address] [facility] [address] [phone] [place], [place] [address] Social History Tobacco Use [...] CDT Neck and shoulder MRI being done [facility]. The patient is requesting pain meds as they told him these being done at the same time and it hurts for him to lay. Patient uses [facility] in [facility]. documented in this encounter Plan of Treatment Not on filedocumented as of this encounter Visit Diagnoses Not on filedocumented in this encounter Care Teams District Court Reporter Relationship Specialty Start Date End Date Laila Loco APRN, TECHNICAL PROJECT LEAD PCP - General 12/09/17 01/10/[address] [place] [address] [place] [address] documented as of this encounter
--- OUTSIDE RECORDS SUMMARY | 2022-03-08 11:02 | XMS_ITS | Encounter Summary ---
:1940 Author Organization [facility] Address [address] [place] [address] Care Team Providers Name Role Phone Laila Loco OBSTETRICIAN AND GYNAECOLOGIST, MOLDER WAX BALL Primary Care Provider [phone] Reason for Visit Reason Onset Date Comments Talk with Rajan Loco 08/25/2018 Encounter Details Date Type Department Care Team Description 08/25/2018 Telephone [place] Laila Loco, Talk with Rajan Loco [address] OBSTETRICIAN AND GYNAECOLOGIST, MOLDER WAX BALL [place], [place] [address] [facility] [phone] [place], [place] [address] Social History Tobacco Use [...] Rajan's request. She can be reached at [phone]. documented in this encounter Plan of Treatment Not on filedocumented as of this encounter Visit Diagnoses Not on filedocumented in this encounter Care Teams Sales Representative Health Insurance Relationship Specialty Start Date End Date Laila Loco APRN, MOLDER WAX BALL PCP - General 12/09/17 01/10/[address] [place] [address] [facility] [place] [address] documented as of this encounter
--- OUTSIDE RECORDS SUMMARY | 2022-03-08 11:02 | XMS_ITS | Encounter Summary ---
:1940 Author Organization [facility] Address [address] [place] [address] Care Team Providers Name Role Phone Laila Loco TANK BOTTOM ASSEMBLER, MOBILE HEAVY EQUIPMENT OPERATOR Primary Care Provider [phone] Encounter Details Date Type Department Care Team Description 08/11/2018 Telephone [place] Laila Loco, [address] TANK BOTTOM ASSEMBLER, [place] [address] [address] [facility] [phone] [place], [place] [address] Social History Tobacco Use [...] on filedocumented in this encounter Care Teams Safety Analyst Relationship Specialty Start Date End Date Laila Loco, TANK BOTTOM ASSEMBLER, MOBILE HEAVY EQUIPMENT OPERATOR PCP - General 12/09/17 01/10/20 100 [facility] [place] [address] documented as of this encounter
--- OUTSIDE RECORDS SUMMARY | 2022-03-08 11:02 | XMS_ITS | Encounter Summary ---
:[address] [facility] Address [address] [place] [address] Care Team Providers Name Role Phone Laila Loco CREDIT RATING CHECKER, ELECTRIC MOTOR TESTER ASSEMBLER Primary Care Provider Reason for Visit Reason Onset Date Comments Visit 08/21/2018 Encounter Details Date Type Department Care Team Description 08/21/2018 Telephone [place] Laila Loco, Visit [address] CREDIT RATING CHECKER, ELECTRIC MOTOR TESTER ASSEMBLER [place], [place] [address] [address] [facility] [phone] [place], [place] [address] Social History Tobacco Use [...] this afternoon. You can reach Astrid at [phone]. documented in this encounter Plan of Treatment Not on filedocumented as of this encounter Visit Diagnoses Not on filedocumented in this encounter Care Teams Ophthalmic Pathologist Relationship Specialty Start Date End Date Laila Loco APRN, IRA PCP - General 12/09/17 01/10/[address] [place] [address] [place] [address] documented as of this encounter
--- OUTSIDE RECORDS SUMMARY | 2022-03-08 11:02 | XMS_ITS | Encounter Summary ---
:1940 Author Organization [facility] Address [address] [place] [address] Care Team Providers Name Role Phone Laila Loco APRN, CNP Primary Care Provider [phone] Reason for Referral Consultation (Routine) - Closed Specialty Diagnoses / Procedures Referred By Contact Refer red To Contact Neurology Diagnoses Memory deficit Laila Loco, [facility] - Referrals [place] [address] [facility] 100 [place] [address] [place] [address] Fax: Referral ID Status Reason Start Date Expiration Date Visits Requ ested Visits Authorized [id number] Closed 08/28/2018 08/29/2019 1 1 Reason for Visit Reason Comments Follow-up Encounter Details Date Type Department Care Team Description 08/28/2018 Office Visit Laila Wilson Follow up (Primary Dx); [address] M, [place] W[place] Memory deficit [place], [place] 100 [facility] [address] [place] [address] Social History Tobacco Use Types Packs/Day Years [...] week ago. The patient was admitted to [facility] on 08/15/2018, after he had an acute [...] left shoulder yesterday, by Dr. [facility] in [place], and he feels there has been some [...] ogical evaluation for his memory deficit at [facility] in [place]. The patient agrees and understands this plan of care. Laila Loco APRN, CNP documented in this encounter Plan of Treatment Scheduled Referrals Name Type Priority Associated Order Schedule Diagnoses Ambulatory External Outpatient Referral Routine Memory deficit Ordered: Referral 08/28/2018 documented as of this encounter Visit Diagnoses Diagnosis Follow up - Primary Memory deficit Memory loss documented in this encounter Care Teams Telephonic Nurse Case Manager Relationship Specialty Start Date End Date Laila Loco APRN, CNP PCP - General 12/09/17 01/10/20 100 [place] [address] documented as of this encounter
--- OUTSIDE RECORDS SUMMARY | 2022-03-08 11:02 | XMS_ITS | Encounter Summary ---
:1940 Author Organization [facility] Address [address] [place] [address] Care Team Providers Name Role Phone Laila Loco APRN, IRA Primary Care Provider [phone] Reason for Referral Imaging (Routine) - Closed Specialty Diagnoses / Procedures Referred By Contact Refer red To Contact Radiology Diagnoses Cervical pain (neck) Laila Loco APRN, Procedures MRI Cervical Spine wo IV Contrast TEMPERING OVEN OPERATOR [address] [place] [address] Referral ID Status Reason Start Date Expiration Date Visits Requ ested Visits Authorized [id number] Closed 07/30/2018 01/26/2019 1 1 Imaging (Routine) - Closed Specialty Diagnoses / Procedures Referred By Contact Refer red To Contact Radiology Diagnoses Chronic left shoulder pain Laila Loco APRN, Procedures MRI Shoulder Left wo IV Contrast TEMPERING OVEN OPERATOR [address] [place] [address] Referral ID Status Reason Start Date Expiration Date Visits Requ ested Visits Authorized [id number] Closed 07/30/2018 01/26/2019 1 1 Reason for Visit Reason Comments Shoulder Pain Left Encounter Details Date Type Department Care Team Description 07/30/2018 Office Visit Laila Wilson Cervical pain (neck) (Primar y Dx); [address] M, GENERAL PRODUCTION MANAGER, TEMPERING OVEN OPERATOR Chronic left shoulder pain Margarito Love [place] [address] [facility] [address] [place] [address] Social History Tobacco Use Types Packs/Day Years [...] encounter Patient Instructions Patient InstructionsChsulema Loco APRN, TEMPERING OVEN OPERATOR - 07/30/2018 9:20 AM CDT Will call [...] HPI: The patient is a pleasant 78-year-old [id number]-[id number] male [facility] with left shoulder discomfort which started [...] 2008, after slipping on ice in a [employer] parking lot. The patient reports he wore [...] positions, particularly abduction. Positive Riojas's test. X-ray audiovisual lead technician stated he had a difficult time [...] of his left shoulder and neck through [facility] in [place]. The patient will be notified of the impressions. The patient signed a release of information to obtain a copy of his left shoulder and neck x-ray to be burned to a CD to take with him if he is referred to orthopedics, and requests to be referred to Dr. Dodson at [facility] in [place] who he has a relationship with. The [...] fra cture. IMPRESSION: Minimal osteoarthritis. Laila Loco GENERAL PRODUCTION MANAGER, TEMPERING OVEN OPERATOR IMG XR PROCEDURES X-ray Cervical Spine 2-3 [...] for carotid artery disease Laila Loco APRN, TEMPERING OVEN OPERATOR IMG XR PROCEDURES documented in this encounter Visit Diagnoses Diagnosis Cervical pain (neck) - Primary Cervicalgia Chronic left shoulder pain Pain in joint, shoulder region documented in this encounter Care Teams Receiving Worker Relationship Specialty Start Date End Date Laila Loco APRN, TEMPERING OVEN OPERATOR PCP - General 12/09/17 01/10/20 100 [place] [address] documented as of this encounter
--- OUTSIDE RECORDS SUMMARY | 2022-03-08 11:02 | XMS_ITS | Encounter Summary ---
:1940 Author Organization [facility] Address [address] [place] [address] Care Team Providers Name Role Phone Laila Loco APRN, CNP Primary Care Provider [phone] Reason for Referral Consultation (Routine) - Closed Specialty Diagnoses / Procedures Referred By Contact Refer red To Contact Orthopedic Surgery Diagnoses Complete rotator cuff tear of left shoulder Laila Loco, [facility] [place] [address] [facility] [address] [place] [address] Fax: Referral ID Status Reason Start Date Expiration Date Visits Requ ested Visits Authorized [id number] Closed 08/19/2018 08/20/2019 1 1 Scheduling Instructions The patient was started on Plavix for a non-STEMI [place] and cannot proceed with any surgical interventions as he is on Plavi x times 1 year inquiring about the possibility of a steroid injection. 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 The patientreports he wore a neck brace for a period of 3-4 months following this incident. No recent neck injury. The patient reports his neck pain is likely worsening, and notices his neck pain when he is driving, as he has to frequently reposition himself. The patient would like to be referred to Dr. Dodson at [facility] in [place], for orthopedic consultation if recommended, as he [...] elevated troponin. The patient was transferred from [facility] to [facility], with an acute coronary non-ST elevation myocardial infraction. The patient was admitted to [facility] on 08/15/2018, and discharged on 08/16/2018, after [...] things. The patient acknowledges before his recent [place], he forgot to take his baby aspirin [...] DIAGNOSTICS: Reviewed the patient's MRI results from [facility] on 08/13/2018: Cervical neck MRI: 1. Moderate [...] this visit: Follow up (Primary) Atherosclerosis of tanacross coronary artery without angina pectoris, unspecified whether tanacross or transplanted heart - metoprolol succinate XL [...] he will be referred to orthopedics at [facility] in [place] for further evaluation. Will proceed with a bilateral carotid ultrasound, call with the results, and likely recommend referral to neurology to evaluated the memory concerns. The patient can take Tylenol for pain, avoiding the NSAID's. The patient will take calcium with Vitamin D twice daily. The patient and his both agree and understand this plan of care. 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
--- OUTSIDE RECORDS SUMMARY | 2022-03-08 11:03 | XMS_ITS | Encounter Summary ---
:1940 Author Organization [facility] Address [address] [place] [address] Care Team Providers Name Role Phone Silver Givens M.D., Ph.D. Primary Care Provider [phone] Reason for Referral Outpatient (Routine) - Authorized Specialty Diagnoses / Procedures Referred By Contact Refer red To Contact Emergency Medicine Diagnoses Epistaxis Isidro Pham, MARIANNAS [facility] ED, C.N.P. [address] [place] [address] Referral ID Status Reason Start Date Expiration Date Visits V isits Requested Authorized [id number] Authorized 08/15/2021 08/15/2022 1 1 Reason for Visit Reason Comments Fall Fall on Friday presents now with a nose bleed. Encounter Details Date Type Department Care Team Description 08/15/2021 Emergency [facility] Trever Gracia, P.A.Yesenia. [address] [place] [address] Epistaxis (Primary Dx); Department Isidro Pham APRN, C.N.P. [address] [place] [phone] History Of Falling; [address] [place] [address] BLVD Injury Head Initial ROSALIA CLARK, [place] [phone] Social History Tobacco Use Types Packs/Day [...] Try applying pressure for least 15 minutes, machine operator hop picker some Afrin and do 2 sprays into the nostril. If he continued to bleed after that please return to the ER. AttachmentsThe following attachments cannot be sent through Care Everywhere. Nosebleed Adult (Azeri)documented in this encounter Medications at Time of [...] as of this encounter ED Notes Isidro Pham, ED, C.N.P. - 08/15/2021 7:45 PM CDT Care of patient transferred to mt by Joshua Gracia PA-C. Disposition pending lab [...] Falling Injury Head Initial Isidro Pham APRN, C.NJarocho. 08/15/211945 Raymundo Gracia P.A.-C. - 08/15/2021 6:09 [...] Neuroradiology ARZ N/A Computed Tomography LOS, Neuroradiology [facility] Specimen (Source) Anatomical Collection Method Collection [...] ARZ LOS, N/A Computed Tomography Neuroradiology FLA [facility] Specimen (Source) Anatomical Collection Method Collection Time [...] 08/15/2021 CNFL 7:21 PM CDT BUN (Blood Urea 13 8 - 24 08/15/2021 CNFL Nitrogen), P mg/dL 7:21 PM CDT Creatinine 1.18 0.74 - 08/15/2021 CNFL 1.35 mg/dL 7:21 PM CDT eGFR-Black/Afri 67 >=60 08/15/2021 CNFL can Kuwaiti mL/min/BSA 7:21 PM CDT Comment: ----ADDITIONAL INFORMATION---- Estimated GFR calculated using the 2009 CKD_EPI creatinine equation. eGFR Non-Black/ 58 (L) >=60 mL/min/BSA 08/15/2021 7:21 PM CDT CNFL [place]i Comment: ----ADDITIONAL INFORMATION---- Estimated GFR calculated using [...] P.A.-C. LAB BLOOD ADD-ON Performing Organization Address City/State/RUST Code Phon e Number [facility]- [address] [place] [phone] [place] [address] [place] [address] System in [address] Prothrombin Time (PT) (08/15/2021 6:05 PM [...] Code Phon e Number [facility]- [address] [place] [phone] [place] [address] System in [address] (ABNORMAL) CBC with Differential, Blood (08/15/2021 6:05 PM CDT) [facility] Method Time Signature Hemoglobin 13.4 13.2 [...] Code Phon e Number [facility]- [address] [place] [address] [place] [address] [place] [address] System in [address] documented in this encounter Visit Diagnoses [...] (CYKLOKAPRON) (COMPLETED) 183 (Given - Provider: Raymundo N Wood, P.A.-C. - Comment: given by provider) 500 mg, topical, Once, On Fri08/15/21 at 1751, For 1 dose, Soak 3-4 pledgets in 5 mL (500 mg) and apply to affected nare. documented in this encounter Additional Health Concerns Assessment Noted Time PHQ-9 Depression Total Score: 2 03/08/2015 11:16 AM CS T documented as of this encounter Care Teams Armature Winder Repairer Relationship Specialty Start Date End Date Silver Givens M.D., Ph.D. PCP - General Family Medicine 11/10/19 12/09/21 documented as of this encounter
--- OUTSIDE RECORDS SUMMARY | 2022-03-08 11:03 | XMS_ITS | Encounter Summary ---
:1940 Author Organization [facility] Address [address] [place] [address] Care Team Providers Name Role Phone Silver Givens M.D., Ph.D. Primary Care Provider [phone] Encounter Details Date Type Department Care Team Description 09/18/2021 Clinical Department of Fabien Gillette, Communication Otorhinolaryngology in [address] [place] [address] [place], [place] [phone] [address] Social History Tobacco Use Types Packs/Day [...] Left message Telephone Encounter - Golden Arce L.P.N. - 09/18/2021 3:13 PM CDT Please reschedule [...] documented as of this encounter Care Teams Brimming Machine Operator Relationship Specialty Start Date End Date Silver Givens M.D., Ph.D. PCP - General Family Medicine 11/10/19 12/09/21 documented as of this encounter
--- OUTSIDE RECORDS SUMMARY | 2022-03-08 11:03 | XMS_ITS | Encounter Summary ---
:1940 Author Organization [facility] Address [address] [place] [address] Care Team Providers Name Role Phone Silver Givens M.D., Ph.D. Primary Care Provider [phone] Encounter Details Date Type Department Care Team Description 11/30/2021 [facility] Laila Loco Pain Chest (Primary AND CLINICS M, C.N.P. Dx) [address] [facility] [address] [place] [address] [phone] Social History Tobacco Use Types Packs/Day Years [...] documented as of this encounter Care Teams Skip Locator Relationship Specialty Start Date End Date Silver Givens M.D., Ph.D. PCP - General Family Medicine 11/10/19 12/09/21 documented as of this encounter
--- OUTSIDE RECORDS SUMMARY | 2022-03-08 11:03 | XMS_ITS | Encounter Summary ---
:1940 Author Organization [facility] Address [address] [place] [address] Care Team Providers Name Role Phone Elsewhere, Pcp Primary Care Provider Unavailable Encounter Details Date Type Department Care Team Description 12/10/2021 Surgery Division of Cardiovascular Angella Costello oronary Angiography Diseases in Matty Yung M .D. [place] [address] [facility] [address] [place] [address] [phone] Social History Tobacco Use Types Packs/Day Years [...] through Care Everywhere.Care Following Your Catheter Procedure (Upper Sorbian)documented in this encounter Medications at Time of [...] instructions were reviewed in detail as per [id number] with patient and family. They verbalized understanding. [...] in Atherosclerotic the results Heart Disease section. 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 Darvin Corral M.D. 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) (HCC) Atherosclerotic Heart Disease Of [place] Coronary Artery Without Angina Pectoris Abnormal Stress Test Atherosclerotic Heart Disease [place] 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) ([facility]) documented in this encounter Admitting Diagnoses Diagnosis Atherosclerotic Heart Disease Of [place] Coronary Artery Without Angina Pectoris Abnormal Stress [...] Sakina Moy RKumar.)1019 (Given - Provider: Sakina Myo R.N.) As needed, Starting on Fri12/10/21 at [...] documented as of this encounter Care Teams Fractionation Plant Supervisor Relationship Specialty Start Date End Date Elsewhere, Pcp PCP - General Internal Medicine 12/10/21 documented as of this encounter
--- OUTSIDE RECORDS SUMMARY | 2022-03-08 11:03 | XMS_ITS | Clinical Summary ---
:1940 Author Organization [facility] Address [address] [place] [address] Care Team Providers Name Role Phone Elsewhere, Pcp Primary Care Provider Unavailable Source Comments Patient records contain information from all sites at [facility]. For routine questions regarding patient records, call [phone] during business hours, M-F 8:00 AM - 5:00 PM Central Time. Record requests for emergency care only can be directed to [phone] at any time.[facility] Allergies Active Allergy Reactions Severity Noted Date [...] Patient taking differently: 25 mg oral Daily, Reported on 11/30/2021 aspirin-calcium carbonate Take 1 tablet by 0 Active 81 mg-300 mg calcium(777 mouth. mg) tablet pantoprazole (PROTONIX) 40 Take 1 tablet (40 90 tablet 3 03/07 Active mg EC tablet mg total) by mouth daily. isosorbide mononitrate Take 1 tablet (30 30 tablet 11 2 11/30/2022 Active (IMDUR) 30 mg 24 hr tablet mg total) by mouth daily. nitroglycerin (NITROSTAT) Place 1 tablet 100 tablet 1 12/01/19 Active 0.4 mg SL tablet (0.4 mg total) under the tongue every 5 (five) minutes as needed for chest pain. Active Problems Problem Noted Date Abnormal Stress Test 12/07/2021 Overview: Added automatically from request for mayte hardy [id number] Anemia Iron Deficiency Blood Loss Chronic 09/11/2020 Overview: Added automatically from request for mayte hardy [id number] Stool Positive Occult Blood 09/11/2020 Overview: Added automatically from request for mayte hardy [id number] Aftercare Total Shoulder Arthroplasty 01/25/2020 Primary Osteoarthritis Shoulder Left 12/20/2019 Overview: Added automatically from request for mayte hardy [id number] Hyperglycemia 12/14/2019 Gastroesophageal Reflux Disease Without Esophagitis Loss Hearing Bilateral 12/14/2019 Osteoporosis Without Pathological Fracture 11/27/2017 Peripheral Vascular Disease 07/02/2017 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 Overview: Coronary Artery Disease (CAD) [place] Ves marlys Deficiency Vitamin D 03/10/2009 Stroke Cerebrovascular Accident Personal History 06/10 Hyperlipidemia 10/11/2002 Resolved Problems Problem Noted Date Resolved Date Non-ST Elevation Myocardial Infarction 08/15/2018 0 12/14/2019 Cataract Senile Nuclear Sclerosis Right 05/01/2017 12/14/2019 Overview: Added automatically from request for mayte cuiy [id number] Cataract Senile Nuclear Sclerosis Left 05/01/2017 0 12/14/2019 Overview: Added automatically from request for mayte cuiy [id number] Fracture Vertebra Thoracic Closed Initial 04/20/2008 12/14/2019 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) ([facility]); Abnormal Stress Test 12/10/2021 Surgery Cardiovascular Angella Costello Coronary Olivia ography Disease Marisela Starr 12/07/2021 Lab Laboratory Medicine Darvin Corral Examination For Viral Disease; Marisela Gallardo Contact With An d (Suspected) Exposure To COVID-19 12/07/2021 [facility] Visit [facility] Darvin Corral Abnormal S tress Test (Primary Dx); Disease Marisela Gallardo 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) ([facility]) 12/07/2021 Abstract Family Medicine Provider, Historical from Last 3 Months Immunizations Name Administration [...] 2) 1991 COVID-19 Vaccine (4 - Booster for 04/13/2021 02/16/2021, , Pfizer series) 07/21/2020, Additional history exists Depression Screening (Annual 05/05/2021 PHQ-2) DTaP,Tdap,and Td Vaccines (2 - Td 01/07/2022 01/08/2012, or Tdap) Influenza Vaccine (#1) 2022 03/29/2020, 03/24/2015, 07/05/2013, Additional history exists Office Visit for Blood Pressure 03/09/2022 12/07/2021 Check / Re-check Fasting Glucose for Diabetes 11/30/2022 11/30/2021, 022, Screening 01/18/2020, Additional history exists Colonoscopy 09/29/2025 09/29/2020, 07/10/2016, 01/31/2010, Additional history exists Colorectal Cancer Surveillance 09/29/2025 Pneumococcal vaccine (65+ years) Completed 01/09/2018, 10/2006 Fall Risk Screen (Annual) Completed 12/10/2021 Medical Devices Implanted Type Area Hr Associate Device Shelf Model / Identifier Expiration Date Ser ial / Lot Xience Stent 3.5 X 18 - Figueroa [id number] Cardiac Ann Implanted: Qty: 1 on 12/19/2011 Stent Description: Device Hr Associate - Abbot t Vascular. Device Status Text - [id number]. Stnt Synergy Venkata Rx3x16 - [id number] Cardiac N/A: [place] 06/07/2020 [id number] / Implanted: Qty: 1 on 08/15/2018 by Jacques Barraza M.D. at [facility] Stent Coronary Scientific / [id number] Description: LAD Patch Hemasheild Knitted 1x3 - Figueroa 6590 Mesh or Patch Getin ge Group Implanted: Qty: 1 on 08/21/1999 Description: Device Hr Associate - igobubble. Device Status Text - [id number]. Tencnis Iol Ocular Lens Right: Eye Ann 03/25/2021 [id number] / Implanted: Qty: 1 on 07/07/2017 by Raymundo Kinney am, M.D. at [facility] [id number] / [id number] Ocular Lens Ann 02/24/2021 [id number] / Implanted: Qty: 1 on 07/21/2017 by Raymundo Kinney am, M.D. at [facility] [id number] / Shoulder Implant-03/23/2015 Shoulder Right: Implanted: 03/23/2015 by Marv Dodson M.D. (Quantity no t on file) Implant Shoulder Shldr Lnr Trb Rvrs +0x36 - Sna - [id number] Shoulder Left: Lisa [id number] 04/03/2026 [id number] / Implanted: Qty: 1 on 01/25/2020 by Marv Roman M.D. at [facility] Implant Shoulder Biomet NA / [id number] Procedures Procedure Name Priority Date/Time Associated Comments Diagnosis CARDIAC CATHETERIZATION Routine 12/10/2021 10:[address] ss Results for this AM CDT Test procedure are in Atherosclerotic the results Heart Disease section. 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 (Suspected) Exposure To COVID-19 from Last 3 Months Results CORONARY ANGIOGRAPHY [...] PCR, Varies Asymptomatic (12/07/2021 11:30 AM CDT) [facility] Method Time Signature SARS CoV-2 Swab, 12/07/2021 [...] Drug Administration an d is used per fairing man's instructions. Performance characteristics were verified by [facility] in a manner consistent with CLIA requirements. Visit the CDC website: https://www.cdc.g ov/coronavirus/ for the most recent guidelines on Coron avirus testing. Fact Sheet for Healthcare Providers: https://www.fda.gov/media/431145/downloa d Fact Sheet for Patients: https://www.fda.gov/media/825161/downloa d Specimen Anatomical Collection Method Collection Time Receive d Time (Source) Location / / Volume Laterality Varies 12/07/2021 11:30 12/07/2021 (Nasopharynx) AM CDT 12:27 PM CDT Darvin Corral M.D. LAB MICROBIOLOGY - GENERAL O RDERABLES Performing Organization Address City/State/ZIP Code Phon e Number [facility] - [address] [place], [place] [address] [facility] [place] [address] Laboratories-[facility] [address] from Last 3 Months Insurance Payer Benefit Plan Subscriber ID Effective Phone Address Typ e / Group Dates MEDICARE MEDICARE A [id number] 2006-Pres [address] [place] [address] BLUE CROSS BCBS [place] [id number] 2016-Pres [phone] PO LIZBET X Cost Share BLUE SHIELD BLUE COST ent [phone] [place] [address] Advance Directives For more information, please contact: [phone] Documents on File Type Date Recorded Patient Rubber Roller Grinder Explanati on Advance Directives 12/05/2021 Neetu FlomColleen HCPOA/A DVOCATE/AGENT/REP JohnsonMarshbilly Flom RESENTATIVE /SURROGATE Latest Code Status on File Code Status Date Activated Date Inactivated Comments Full Code 09/29/2020 11:34 AM 09/29/2020 1:44 PM Question Answer Comments Full Code: Discussed Code Status History Code Status Date Activated Date Inactivated Comments Full Code 01/25/2020 4:32 PM 01/26/2020 1:09 PM Question Answer Comments Full Code: Discussed Full Code 08/15/2018 2:26 AM 08/16/2018 1:25 PM Question Answer Comments Full Code: Discussed Full Code 07/21/2017 9:32 AM 07/21/2017 11:44 AM Question Answer Comments Full Code: Discussed Full Code 07/07/2017 8:50 AM 07/07/2017 1:56 PM Question Answer Comments Full Code: Discussed Healthcare Agents on File Name Relationship Healthcare Agent Communication Relationship Neetu Vines Spouse Health Care Agent Ginette Dodson Daughter [facility] Health Care Agent Jesus Vines Son [facility] Care Agent Care Teams Robotic Welder Relationship Specialty Start Date End Date Elsewhere, Pcp PCP - General Internal Medicine 12/10/21
--- OUTSIDE RECORDS SUMMARY | 2022-03-08 11:03 | XMS_ITS | Encounter Summary ---
:1940 Author Organization [facility] Address [address] [place] [address] Care Team Providers Name Role Phone Silver Givens M.D., Ph.D. Primary Care Provider [phone] Encounter Details Date Type Department Care Team Description 12/07/2021 Lab Department of Laboratory Darvin Corral, Screening Examination For Viral Disease; Medicine and Pathology, MMarry Contact With And (Suspected) Exposure To COVID-19 [facility] in [address] [place] [address] [place] [address] [place] [address] [phone] Social History Tobacco Use Types Packs/Day Years [...] PCR, Varies Asymptomatic (12/07/2021 11:30 AM CDT) [facility] Method Time Signature SARS CoV-2 [...] Drug Administration an d is used per ceramic tile installation helper's instructions. Performance characteristics were verified by [facility] in a manner consistent with CLIA requirements. Visit the CDC website: https://www.cdc.g ov/coronavirus/ for the most recent guidelines on Coron avirus testing. Fact Sheet for Healthcare Providers: https://www.fda.gov/media/541158/downloa d Fact Sheet for Patients: https://www.fda.gov/media/484150/downloa d Specimen Anatomical Collection Method Collection Time Receive d Time (Source) Location / / Volume Laterality Varies 12/07/2021 11:30 12/07/2021 (Nasopharynx) AM CDT 12:27 PM CDT Darvin Corral M.D. LAB MICROBIOLOGY - GENERAL O RDERABLES Performing Organization Address City/State/ZIP Code Phon e Number [facility] - [address] [place], [place] [address] [facility] [place] [place] [address] Laboratories-[facility] [address] documented in [...] documented as of this encounter Care Teams Replanting Machine Operator Relationship Specialty Start Date End Date Silver Givens M.D., Ph.D. PCP - General Family Medicine 11/10/19 12/09/21 documented as of this encounter
--- OUTSIDE RECORDS SUMMARY | 2022-03-08 11:03 | XMS_ITS | Encounter Summary ---
:1940 Author Organization [facility] Address [address] [place] [address] Care Team Providers Name Role Phone Silver Givens M.D., Ph.D. Primary Care Provider [phone] Reason for Visit Reason Comments Abdominal Pain Chest Pain Encounter Details Date Type Department Care Team Description 11/30/2021 Emergency [facility] Hamzah Hernández M, Abd ominal Pain (Primary Dx); Emergency Department Marisela, M.B.A. Coronary Artery Disease With Stable Olivia na ([facility]) [address] [facility] [address] [place] [address] [phone] (Wo rk) Social History Tobacco Use Types [...] through Care Everywhere. Coronary Artery Disease Male ([place])documented in this encounter Medications at Time of [...] PM CDT CARDIOLOGY CONSULT NOTE Cardiology Collaborating Basin Cleaner: Dr. Sam Bradshaw CHIEF COMPLAINT/REASON FOR VISIT [...] Macular Bilateral Fracture Vertebra Thoracic Closed Initial ([facility]) 04/20/2008 Gastroesophageal Reflux Disease NOS Hyperlipidemia Non-ST Elevation Myocardial Infarction ([facility]) 08/15/2018 Polymyalgia Rheumatica ([facility]) 03/25/2007 Post Operative Nausea/Vomiting ST Elevation Myocardial Infarction Of Unspecified Site ([facility]) Stroke ([facility]) Past Surgical History: Procedure Laterality Date ARTHROPLASTY OF SHOULDER N/A 03/23/2015 Arthroplasty of the shoulder ARTHROPLASTY TOTAL REVERSE SHOULDER Left 01/25/2020 Procedure: ARTHROPLASTY TOTAL REVERSE SHOULDER-; Surgeon: Marv Dodson M.D.; Location: [facility] OR CARPAL TUNNEL RELEASE N/A 02/24/2007 >Right carpal tunnel release. CATH ANGIOGRAM N/A 08/15/2018 Procedure: Coronary Angiography; Surgeon: Jacques Barraza M.D.; Location: [facility] CATH INTERVENTION N/A 08/15/2018 Procedure: Stent Placement; Surgeon: Jacques Barraza M.D.; Location: [facility] CATH PTCA N/A 08/15/2018 Procedure: Percutaneous Coronary Angioplasty; Surgeon: Jacques Barraza M.D.; Location: [facility] COLONOSCOPY N/A 09/29/2020 Procedure: COLONOSCOPY-P; Surgeon: Wood Car M.D.; Location: [facility] GI LAB CORONARY ANGIOPLASTY WITH STENT PLACEMENT N/A 12/19/2011 >1. Percutaneous coronary intervention with drug-eluting stent following a lytics for STEMI (lytics DECOMPRESSION OF MEDIAN NERVE N/A 10/17/2006 Carpal tunnel release ESOPHAGOGASTRODUODENOSCOPY N/A 09/29/2020 Procedure: ESOPHAGOGASTRODUODENOSCOPY; Surgeon: Wood Car M.D.; Location: [facility] GI LAB EXTRACTION CATARACT WITH INSERTION INTRAOCULAR LENS Right 07/07/2017 Procedure: EXTRACTION CATARACT WITH INSERTION INTRAOCULAR LENS; Surgeon: Raymundo Muniz M.D.; Location: [facility] OR EXTRACTION CATARACT WITH INSERTION INTRAOCULAR LENS Left 07/21/2017 Procedure: EXTRACTION CATARACT WITH INSERTION INTRAOCULAR LENS; Surgeon: Raymundo Muniz M.D.; Location: [facility] OR MOHS SURGERY N/A 06/23/2006 [...] male with a history of CAD prior VT, s/p stenting Please see HPI for further [...] chest pain for the past month. Thepatient's PROBLEM MANAGER from [place] with the [facility] suggested that patient be seen based on ECG changes. The patient denies SOB or chest pain on arrival. Yosi Cam Jr. RLaraN. 11/30/21 1431 Hamzah Hernández M.D. - 11/30/2021 2:25 PM [...] performed and their clinic outside of the [place] system earlier today, however. The patient has [...] in MDM. Case reviewed with other health pet care worker, including Cardiology. ED Course as of 11/30/212023Nov [...] 2H/6H, 5th Gen (11/30/2021 4:30 PM CDT) [facility] Method Time Signature Troponin T, 2 [...] 22 4:33 Venous) CDT PM CDT Narrative [facility] - 11/30/2021 4:56 PM CDT Specimen Information: Specimen ID: [id number] Specimen Type: Blood Specimen Collection Start Date: 12/01/19 ??4:30 PM Specimen Received Date: 11/30/2021 ??4:3 3 PM Specimen ID: [id number] Specimen Type: Blood Specimen Collection Start Date: 12/01/19 ??4:56 PM Specimen Received Date: 11/30/2021 ??4:5 6 PM Hamzah Hernández M.D., M.B.A. LAB BLOOD TROPONIN Performing Organization Address City/State/ZIP Code Phon e Number [facility] - [address] [place] [address] [place] [address] Laboratories-[facility] [address] [facility] DX Chest AP or PA and Lateral [...] fracture. Bilateral shoulde r arthroplasties. Hamzah Hernández M.D., M.B.A. IMG DIAGNOSTIC IMAGING PRO CEDURES Troponin T, Baseline, 5th gen (11/30/2021 2:38 PM CDT) athologist Signature Troponin T, 12 <=15 ng/L 11/30/2021 [facility] Baseline, 5th 3:06 PM CDT gen Specimen Anatomical Collection Method Collection Time Receive d Time (Source) Location / / Volume Laterality Blood (Blood, 11/30/2021 2:38 PM 12/01/19 22 2:44 Venous) CDT PM CDT Hamzah Hernández M.D., M.B.A. LAB BLOOD TROPONIN Performing Organization Address City/State/ZIP Code Phon e Number [facility] - [address] [place] [address] [address] [place] [address] Laboratories-[address] Prothrombin Time (PT) (11/30/2021 2:38 PM CDT) athologist Signature Prothrombin 12.5 9.4 - 12.5 11/30/2021 [facility] Time, P sec 2:53 PM CDT INR 1.1 0.9 - 1.1 11/30/2021 [facility] PM [facility]T Comment: ----ADDITIONAL INFORMATION---- Standard intensity warfarin therapeutic range: 2.0 to 3.0 ?? High intensity warfarin therapeutic rang e: 2.5 to 3.5 Specimen Anatomical Collection Method Collection Time Receive d Time (Source) Location / / Volume Laterality Blood (Blood, 11/30/2021 2:38 PM 12/01/19 2:44 Venous) CDT PM CDT Hamzah Hernández M.D., M.B.A. LAB BLOOD ADD-ON Performing Organization Address City/State/[facility] Code Phon e Number [facility] - [address] [place] [address] [place] [address] [address] NT-Pro B-Type Natriuretic Peptide (BNP) (11/30/2021 2:38 PM CDT) athologist Signature NT-Pro BNP 227 <=540 pg/mL 11/30/2021 [facility] 3:08 PM CDT Comment: NT-proBNP values less [...] 2:44 Venous) CDT PM CDT Hamzah Hernández M.D., M.B.A. LAB BLOOD ADD-ON Performing Organization Address City/[facility] Phon e Number [facility] - [address] [place] [address] [facility] [place] [address] Lipase (11/30/2021 2:38 PM CDT) P athologist Signature Lipase, S 32 13 - 60 U/L 11/30/2021 3:38 DTL PM CDT Specimen Anatomical Collection Method Collection Time Receive d Time (Source) Location / / Volume Laterality Blood (Blood, 11/30/2021 2:38 PM 12/01/19 3:09 Venous) CDT PM CDT Hamzah Hernández M.D., M.B.A. LAB BLOOD ADD-ON Performing Organization Address City/[facility] Phon e Number [address] (ABNORMAL) Hepatic Function Panel (11/30/2021 2:38 [...] Blood (Blood, 11/30/2021 2:38 PM 12/01/19 22 3:09 Venous) CDT PM CDT Hamzah Hernández M.D., M.B.A. LAB BLOOD ADD-ON Performing Organization Address City/State/ZIP Code Phon e Number [facility] - [address] [place], [place] [address] [facility] [place] [address] [facility] [address] [facility] (ABNORMAL) CBC with Differential, Blood (11/30/2021 2:38 PM CDT) [facility] Method Time Signature Hemoglobin 13.1 (L) 13.2 [...] 2:44 Venous) CDT PM CDT Hamzah Hernández M.D., M.B.A. LAB BLOOD ADD-ON Performing Organization Address City/State/ZIP Code Phon e Number [facility] - [address] [place], [place] [address] [facility] [place] [address] Laboratories[facility] [address] [facility] Basic Metabolic Panel (11/30/2021 2:38 PM CDT) [...] ST[facility] Nitrogen), P mg/dL 3:02 PM CDT Creatinine 1.13 0.74 - 11/30/2021 [facility] 1.35 mg/dL 3:02 PM CDT eGFR-Black/Afric 71 >=60 11/30/2021 [facility] an [place]onese mL/min/BSA 3:02 PM CDT Comment: ----ADDITIONAL INFORMATION---- [...] 2:44 Venous) CDT PM CDT Hamzah Hernández M.D., M.B.A. LAB BLOOD ADD-ON Performing Organization Address City/State/ZIP Code Phon e Number [facility] - [address] [place], [place] [address] [facility] [place] [address] [facility] [address] ECG 12 Lead (11/30/2021 2:09 PM CDT) P athologist Signature Ventricular Rate 54 BPM MUSE ECG/Min OR Interval 178 ms MUSE QRSD Interval 84 ms MUSE QT Interval 444 ms MUSE QTC Interval 421 ms MUSE P [place] 54 degrees MUSE R [place] 2 degrees MUSE T Wave [place] 30 degrees MUSE Specimen Anatomical Collection Method Collection Time Receive d Time (Source) Location / / Volume Laterality 11/30/2021 2:09 PM 2 2:18 CDT PM CDT Impressions MUSE - 11/30/2021 2:18 PM CDT Sinus bradycardia with sinus arrhythmia Premature ventricular complexes Otherwise normal ECG When compared with ECG of 18-JAN-2020 12 :07, No significant change was found Reviewed by DARRELL Little Narrative This result has an attachment that is no t available. Procedure Note Matty Harrison M.D., Ph.D. - 12/01/19 IMPRESSION: Sinus bradycardia with sinus arrhythmia Premature ventricular complexes Otherwise normal ECG When compared with ECG of 18-JAN-2020 12 :07, No significant change was found Reviewed by DARRELL Little Hamzah Hernández M.D., M.B.A. ECG ORDERABLES Performing Organization Address City/State/ZIP Code Phon e Number MUSE MUSE NA documented in this encounter Visit Diagnoses Diagnosis Abdominal Pain - Primary Coronary Artery Disease With Stable Olivia na (HCC) documented in this encounter Additional Health Concerns Assessment Noted Time PHQ-9 Depression Total Score: 2 03/08/2015 11:16 AM CS T documented as of this encounter Care Teams Director Family Relationship Specialty Start Date End Date Silver Givens M.D., Ph.D. PCP - General Family Medicine 11/10/19 12/09/21 documented as of this encounter
--- OUTSIDE RECORDS SUMMARY | 2022-03-08 11:03 | XMS_ITS | Encounter Summary ---
:1940 Author Organization [facility] Address [address] [place] [address] Care Team Providers Name Role Phone Silver Givens M.D., Ph.D. Primary Care Provider [phone] Reason for Referral Outpatient (Routine) - Authorized Specialty Diagnoses / Procedures Referred By Contact Refer red To Contact Cardiovascular Disease Darvin Corral [place] [address] [place] M.D. [address] [place] [address] Referral ID Status Reason Start Date Expiration Date Visits V isits Requested Authorized [id number] Authorized 12/07/2021 12/07/2022 1 1 Reason for Visit Outpatient (Routine) - Closed Specialty Diagnoses / Procedures Referred By Contact Refer red To Contact Cardiovascular Disease Nic Mitchell [place] PCali, MLaraSLara [address] [place] [address] Referral ID Status Reason Start Date Expiration Date Visits Requ ested Visits Authorized [id number] Closed 12/03/2021 12/03/2022 1 1 Encounter Details Date Type Department Care Team Description 12/07/2021 Office Visit Department of Darvin Corral Abnormal St ress Test (Primary Dx); Cardiovascular Medicine Marisela Gallardo 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) ([facility]) in [facility] marketing rotation associate [address] [place] [address] [phone] Social History Tobacco Use Types Packs/Day Years [...] Stress Test - Primary 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 PCP - General Family Medicine 11/10/19 12/09/21 documented as of this encounter
--- OUTSIDE RECORDS SUMMARY | 2022-03-08 11:03 | XMS_ITS | Encounter Summary ---
:1940 Author Organization [facility] Address [address] [place] [address] Care Team Providers Name Role Phone Elsewhere, Pcp Primary Care Provider Unavailable Encounter Details Date Type Department Care Team Description 12/10/2021 Hospital Division of Angella Costello Abnormal Stress Test; Encounter Cardiovascular Giulia Starr. 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 They verbalized understanding. [...] in Atherosclerotic the results Heart Disease section. 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 PROCEDURE TYPES 1. ??CORONARY ANGIOGRAPHY FINAL DIAGNOSIS 1. ??Mild coronary artery atherosclerosi s PRE-PROCEDURE DIAGNOSIS 1. ??Abnormal Stress Test 2. 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
--- OUTSIDE RECORDS SUMMARY | 2022-03-08 11:03 | XMS_ITS | Encounter Summary ---
:1940 Author Organization [facility] Address [address] [place] [address] Care Team Providers Name Role Phone Silver Givens M.D., Ph.D. Primary Care Provider Encounter Details Date Type Department Care Team Description 01/29/2021 Orders Only [facility] PCP [facility] [place] Sa lindy Kirkland M.D. [address] [place], [place] [phone] (Wo rk) Social History [...] documented as of this encounter Care Teams Professor Of Architecture Relationship Specialty Start Date End Date Silver Givens M.D., Ph.D. PCP - General Family Medicine 11/10/19 12/09/21 documented as of this encounter
--- OUTSIDE RECORDS SUMMARY | 2022-03-08 11:03 | XMS_ITS | Encounter Summary ---
:1940 Author Organization [facility] Address [address] [place] [address] Care Team Providers Name Role Phone Silver Givens M.D., Ph.D. Primary Care Provider [phone] Reason for Visit Reason Comments Pain History left reverse total s houlder 01/25/20 Encounter Details Date Type Department Care Team Description 08/20/2021 Office Visit Department of Marv Dodson Pain Shou lder Left Orthopedic Surgery in M.D. (Primary Dx) [address] [address] [phone] Social History Tobacco Use Types Packs/Day Years [...] documented as of this encounter Care Teams Bunch Maker Hand Relationship Specialty Start Date End Date Silver Givens M.D., Ph.D. PCP - General Family Medicine 11/10/19 12/09/21 documented as of this encounter
--- OUTSIDE RECORDS SUMMARY | 2022-03-08 11:03 | XMS_ITS | Encounter Summary ---
:1940 Author Organization [facility] Address [address] [place] [address] Care Team Providers Name Role Phone Silver Givens M.D., Ph.D. Primary Care Provider [phone] Reason for Visit Outpatient (Routine) - Closed Specialty Diagnoses / Procedures Referred By Contact Refer red To Contact Diagnoses Pain Shoulder Left Marv Dodson M.D. [facility] Region Procedures DX Shoulder Left 2+ Views DX Shoulder Right 2+ Views [address] [place] [phone] Referral ID Status Reason Start Date Expiration Date Visits Requ ested Visits Authorized [id number] Closed 08/20/2021 08/20/2022 1 1 Encounter Details Date Type Department Care Team Description 08/20/2021 Hospital Encounter Department of Marcus Dodson Left Radiology in Marisela [place] [address] [place] [phone] Social History Tobacco Use Types Packs/Day Years [...] of the neck. Marv NOBLES DIAGNOSTIC IMAGING REN ISAAC documented in this encounter Visit Diagnoses Diagnosis Pain Shoulder Left documented in this encounter Additional Health Concerns Assessment Noted Time PHQ-9 Depression Total Score: 2 03/08/2015 11:16 AM CS T documented as of this encounter Care Teams Utility Worker Film Processing Relationship Specialty Start Date End Date Silver Givens M.D., Ph.D. PCP - General Family Medicine 11/10/19 12/09/21 documented as of this encounter
--- OUTSIDE RECORDS SUMMARY | 2022-03-08 11:03 | XMS_ITS | Encounter Summary ---
:1940 Author Organization [facility] Address [address] [place] [address] Care Team Providers Name Role Phone Silver Givens M.D., Ph.D. Primary Care Provider [phone] Encounter Details Date Type Department Care Team [...] documented as of this encounter Care Teams Weight Loss Counselor Relationship Specialty Start Date End Date Silver Givens M.D., Ph.D. PCP - General Family Medicine 11/10/19 12/09/21 documented as of this encounter
--- OUTSIDE RECORDS SUMMARY | 2022-03-08 11:03 | XMS_ITS | Encounter Summary ---
:1940 Author Organization [facility] Address [address] [place] [address] Care Team Providers Name Role Phone Silver Givens M.D., Ph.D. Primary Care Provider [phone] Reason for Referral Outpatient (Routine) - Closed Specialty Diagnoses / Procedures Referred By Contact Refer red To Contact Diagnoses Pain Chest Atherosclerotic Heart Disease Of [place] Coronary Artery Without Angina Pectoris Nic Mitchell P.A.-C., [facility] Procedures Echo Stress M.S. [address] [place] [address] Referral ID Status Reason Start Date Expiration Date Visits Requ ested Visits Authorized [id number] Closed 12/03/2021 12/03/2022 1 1 Reason for Visit Outpatient (Routine) - Closed Specialty Diagnoses / Procedures Referred By Contact Refer red To Contact Diagnoses Pain Chest Atherosclerotic Heart Disease Of [place] Coronary Artery Without Angina Pectoris Nic Mitchell P.A.-C., [facility] Procedures Echo Stress M.S. [address] [place] [address] Referral ID Status Reason Start Date Expiration Date Visits Requ ested Visits Authorized [id number] Closed 12/03/2021 12/03/2022 1 1 Encounter Details Date Type Department Care Team Description 12/05/2021 Hospital Department of [place], Pain Chest; Encounter Cardiovascular Nic RRyan ic Heart Disease Of [place] Coronary Artery Without Angina Pectoris Diseases in Laura Yung, M.S. [place] [address] [place] [phone] [phone] Social History Tobacco Use Types Packs/Day Years [...] AND Heart Disease Of the results CONTRAST [place] Coronary section. Artery Without Angina Pectoris documented in this encounter Results ECHO STRESS 2D WITH COLOR, LIMITED DOPPLER AND CONTRAST (12/05/2021 1:49 PM CDT) [facility] Method Time Signature Ejection Fraction 60 MC [...] Echocardiography Contrast Administration P rotocol Reference Document [id number]. P atient met an inclusion criterion and [...] per Echocardiography Contrast Administration Protocol Reference Document [id number]. Patient met an inclusion criterion and did not have contraindications in screening sections. For the complete report, see the Order-L evel Documents. Nic Mitchell P.A.-C. M.S. CV ECHO PROCEDURES documented in this encounter Visit Diagnoses Diagnosis Pain Chest Atherosclerotic Heart Disease Of [place] Coronary Artery Without Angina Pectoris documented in [...] (LUMASON) intravenous, As needed, contrast, Starting on Fri12/05/21 at 1407, Intraprocedure - Diagnostic, See protocol. Reconstitute each 25 mg vial with 5 mL NS. documented in this encounter Additional Health Concerns Assessment Noted Time PHQ-9 Depression Total Score: 2 03/08/2015 11:16 AM CS T documented as of this encounter Care Teams Weighbridge Operator Relationship Specialty Start Date End Date Silver Givens M.D., Ph.D. PCP - General Family Medicine 11/10/19 12/09/21 documented as of this encounter
--- OUTSIDE RECORDS SUMMARY | 2022-03-08 11:03 | XMS_ITS | Encounter Summary ---
:1940 Author Organization [facility] Address [address] [place] [address] Care Team Providers Name Role Phone Silver Givens M.D., Ph.D. Primary Care Provider [phone] Reason for Visit Reason Comments Triage Encounter Details Date Type Department Care Team Description 12/03/2021 Clinical Communication Department of Straight Truck Driver, [facility] Cardiovascular Medicine Mraisela Kwon in [facility] botany technician [address] [place] [address] Social History Tobacco Use Types Packs/Day [...] an Echo Stress and consult with a Straight Truck Driver per patient's ED visit. Pleasereview and advise [...] documented as of this encounter Care Teams Charge Authorizer Relationship Specialty Start Date End Date Silver Givens M.D., Ph.D. PCP - General Family Medicine 11/10/19 12/09/21 documented as of this encounter
--- OUTSIDE RECORDS SUMMARY | 2022-03-08 11:03 | XMS_ITS | Encounter Summary ---
:1940 Author Organization [facility] Address [address] [place] [address] Care Team Providers Name Role Phone Elsewhere, Pcp Primary Care Provider Unavailable Reason for Referral Outpatient (Routine) - Closed Specialty Diagnoses / Procedures Referred By Contact Refer red To Contact Diagnoses Pain Chest Atherosclerotic Heart Disease Of [place] Coronary Artery Without Angina Pectoris Nic Mitchell P.A.-C., [facility] Procedures Echo Stress M.S. [address] [place] [address] Referral ID Status Reason Start Date Expiration Date Visits Requ ested Visits Authorized [id number] Closed 12/03/2021 12/03/2022 1 1 Outpatient (Routine) - Closed Specialty Diagnoses / Procedures Referred By Contact Refer red To Contact Cardiovascular Disease Nic Mitchell, [facility] Laura, M.SLara [address] [place] [address] Referral ID Status Reason Start Date Expiration Date Visits Requ ested Visits Authorized [id number] Closed 12/03/2021 12/03/2022 1 1 Encounter Details Date Type Department Care Team Description 12/03/2021 Orders Only Department of Nic Mitchell Pain Chest ( Primary Dx); Cardiovascular Medicine Laura Patel Athe rosclerotic Heart Disease Of [place] Coronary Artery Without Angina Pectoris in [facility] M.S. [address] [place] [phone] Social History Tobacco Use Types Packs/Day Years [...] DOPPLER AND CONTRAST (12/05/2021 1:49 PM CDT) [facility] gist Method Time Signature Ejection Fraction [...] Echocardiography Contrast Administration P rotocol Reference Document [id number]. P atient met an inclusion criterion and [...] per Echocardiography Contrast Administration Protocol Reference Document [id number]. Patient met an inclusion criterion and did not have contraindications in screening sections. For the complete report, see the Order-L evel Documents. Nic Mitchell P.A.-C. M.S. CV ECHO PROCEDURES documented in this encounter Visit Diagnoses Diagnosis Pain Chest - Primary Atherosclerotic Heart Disease Of [place] Coronary Artery Without Angina Pectoris Pain Chest Atherosclerotic Heart Disease Of [place] Coronary Artery Without Angina Pectoris documented in this encounter Additional Health Concerns Infection Onset Date Last Indicated Resolved Time COVID19 Pending 12/04/2021 12/04/2021 12/04/2021 3:27 PM CDT COVID19 Pending 12/07/2021 12/07/2021 12/07/2021 4:30 PM CDT Assessment Noted Time PHQ-9 Depression Total Score: 2 03/08/2015 11:16 AM CS T documented as of this encounter Care Teams Quality Associate Relationship Specialty Start Date End Date Elsewhere, Pcp PCP - General Internal Medicine 12/10/21 documented as of this encounter
--- OUTSIDE RECORDS SUMMARY | 2022-03-08 11:04 | XMS_ITS | Encounter Summary ---
:1940 Author Organization [facility] Address [address] [place] [address] Care Team Providers Name Role Phone Silver Givens M.D., Ph.D. Primary Care Provider [phone] Reason for Visit Physical Therapy (Routine) - Canceled Specialty Diagnoses / Procedures Referred By Contact Refer red To Contact Diagnoses Aftercare Total Shoulder Arthroplasty Laine Day, P.A.-C. [facility] Procedures PT Ongoing treatment [address] [facility] [place] [address] Referral ID Status Reason Start Date Expiration Date Visits V isits Requested Authorized [id number] Canceled 02/07/2020 02/06/2021 99 99 Encounter Details Date Type Department Care Team Description 03/13/2020 Clinical Support Department of Laine Day, P.A.-C. [address] [place] [phone] Aftercare Total Rehabilitation Arti Lundberg, P.T. [address] [place] [phone] Shoulder Services in [address] [phone] Social History Tobacco Use Types Packs/Day Years [...] Lundberg P.T. Department of Rehabilitation Services in [address] [address] Dept: [phone] FEEDER documented in this encounter Plan of Treatment Not on filedocumented as of this encounter Visit Diagnoses Diagnosis Aftercare Total Shoulder Arthroplasty documented in this encounter Additional Health Concerns Assessment Noted Time PHQ-9 Depression Total Score: 2 03/08/2015 11:16 AM CS T documented as of this encounter Care Teams Comber Fixer Relationship Specialty Start Date End Date Silver Givens M.D., Ph.D. PCP - General Family Medicine 11/10/19 12/09/21 documented as of this encounter
--- OUTSIDE RECORDS SUMMARY | 2022-03-08 11:04 | XMS_ITS | Encounter Summary ---
:1940 Author Organization [facility] Address [address] [place] [address] Care Team Providers Name Role Phone Silver Givens M.D., Ph.D. Primary Care Provider [phone] Reason for Visit Reason Comments Post Hospital Follow-up [facility] Encounter Details Date Type Department Care Team Description 01/27/2020 Clinical Communication Department of Silver Givens [facility] Family MedicineMarisela, Ph.D. Follow-up ([address]) Clinic, in [address] [address] [facility] [phone] [place], [place] (Work) [phone] Social History Tobacco Use [...] documented as of this encounter Care Teams Premix Concrete Batcher Relationship Specialty Start Date End Date Silver Givens M.D., Ph.D. PCP - General Family Medicine 11/10/19 12/09/21 documented as of this encounter
--- OUTSIDE RECORDS SUMMARY | 2022-03-08 11:04 | XMS_ITS | Encounter Summary ---
:1940 Author Organization [facility] Address [address] [place] [address] Care Team Providers Name Role Phone Silver Givens M.D., Ph.D. Primary Care Provider [phone] Reason for Visit Reason Comments Post-op Outpatient (Routine) - Closed Specialty Diagnoses / Procedures Referred By Contact Refer red To Contact Orthopedic Surgery Laine Day, P.A. -[facility] Region [address] [place] [phone] Referral ID Status Reason Start Date Expiration Date Visits Requ ested Visits Authorized [id number] Closed 02/09/2020 02/08/2021 1 1 Encounter Details Date Type Department Care Team Description 03/08/2020 Office Visit Department of Laine Day, Follow Up E xamination Orthopedic Surgery in P.A.-C. Postoperative Visit [place], [place] [facility] [address] [place] [phone] Social History Tobacco Use Types Packs/Day Years [...] and these were reviewed with the patient. NIC LAB WORKER documented in this encounter Plan of Treatment Not on filedocumented as of this encounter Results DX Shoulder Left 2+ Views (03/08/2020 9:49 AM ORGANIC LAB WORKER) Anatomical Region Laterality Modality Upper Extremity, Shoulder, Musculoskeletal RST LOS, Left Digital Radiography Musculoskeletal ARZ LOS, Muskuloskeletal FLA LOS Specimen (Source) Anatomical Collection Method Collection Time Re ceived Time Location / / Volume Laterality 03/08/2020 9:51 AM ORGANIC LAB WORKER Impressions 03/08/2020 9:54 AM ORGANIC LAB WORKER Left total reverse shoulder arthroplasty hardware components appear well seated and intact. No dislocation. Negative for acute fracture. Aortic calcifications. Thoracic spondylosis. Co mparison December 15, 2019. Narrative 03/08/2020 9:54 AM ORGANIC LAB WORKER EXAM: DX SHOULDER LEFT 2+ VIEWS Procedure Note Juan Manuel Pierce M.D. - 03/08/2020Formattin g of this note might be different from the original. EXAM: DX SHOULDER LEFT 2+ VIEWS IMPRESSION: Left total reverse shoulder arthroplasty hardware components appear well seated and intact. No dislocation. Negative for acute fracture. Aortic calcifications. Thoracic spondylosis. Co mparison December 15, 2019. Laine NOBLES DIAGNOSTIC IMAGING REN ISAAC documented in this encounter Visit Diagnoses Diagnosis Follow Up Examination Postoperative Visi t - Primary Follow Up Examination Postoperative Visi t documented in this encounter Additional Health Concerns Assessment Noted Time PHQ-9 Depression Total Score: 2 03/08/2015 11:16 AM CS T documented as of this encounter Care Teams Quality Lab Technician Relationship Specialty Start Date End Date Silver Givens M.D., Ph.D. PCP - General Family Medicine 11/10/19 12/09/21 documented as of this encounter
--- OUTSIDE RECORDS SUMMARY | 2022-03-08 11:04 | XMS_ITS | Encounter Summary ---
:1940 Author Organization [facility] Address [address] [place] [address] Care Team Providers Name Role Phone Silver Givens M.D., Ph.D. Primary Care Provider [phone] Encounter Details Date Type Department Care Team Description 03/08/2020 Hospital Encounter Department of Laine Day Follo w Up Examination Radiology in [place] P.A.-C. Postoperative Visit [address] [address] [phone] Social History Tobacco Use Types Packs/Day Years [...] for this 2+ VIEWS (most inpatients AM FOREIGN DIPLOMAT Examination procedure a re in and all Postoperative Visit the resu lts outpatients) section. documented in this encounter Results DX Shoulder Left 2+ Views (03/08/2020 9:49 AM FOREIGN DIPLOMAT) Anatomical Region Laterality Modality Upper Extremity, Shoulder, Musculoskeletal RST LOS, Left Digital Radiography Musculoskeletal ARZ LOS, Muskuloskeletal FLA LOS Specimen (Source) Anatomical Collection Method Collection Time Re ceived Time Location / / Volume Laterality 03/08/2020 9:51 AM FOREIGN DIPLOMAT Impressions 03/08/2020 9:54 AM FOREIGN DIPLOMAT Left total reverse shoulder arthroplasty hardware components appear well seated and intact. No dislocation. Negative for acute fracture. Aortic calcifications. Thoracic spondylosis. Co mparison December 15, 2019. Narrative 03/08/2020 9:54 AM FOREIGN DIPLOMAT EXAM: DX SHOULDER LEFT 2+ VIEWS Procedure [...] documented as of this encounter Care Teams Equine Science Instructor Relationship Specialty Start Date End Date Silver Givens M.D., Ph.D. PCP - General Family Medicine 11/10/19 12/09/21 documented as of this encounter
--- OUTSIDE RECORDS SUMMARY | 2022-03-08 11:04 | XMS_ITS | Encounter Summary ---
:1940 Author Organization [facility] Address [address] [place] [address] Care Team Providers Name Role Phone Silver Givens M.D., Ph.D. Primary Care Provider [phone] Reason for Visit Auth/Cert Specialty Diagnoses / Procedures Referred By Contact Refer red To Contact Diagnoses Primary Osteoarthritis Shoulder Left Aftercare Total Shoulder Arthroplasty Primary Osteoarthritis Shoulder Left [M19.012] Procedures ARTHROPLASTY TOTAL REVERSE SHOULDER- Referral ID Status Reason Start Date Expiration Date Visits Requ ested Visits Authorized [id number] 1 1 Encounter Details Date Type Department Care Team Description 01/25/[address] [facility] Anali Anne M.D. [address] [place] [address] 706 Christa Ball M.D. [address] [place] [phone] [place] [phone] Anesthesia Record Procedure Summary Procedure Name [...] h andoff to the receiving staff during the [facility] we 1. Identified the patient [...] Butler, Yoo jung, Time: 1327 (created via SHELLFISH WEIGHER, SATELLITE INSTALLATION TECHNICIAN, DNAP SHELLFISH WEIGHER, C RNA, DNAP procedure documentation); Mask Ventilation: Not attempted; Removal Date: 01/25/20; Removal Time: 1517 (RETIRED) Incision 01/25/20; 1403; 01/25/20 1403 by 01/23/21 141 8 by Shoulder; Left; Freeman beckham Tammara L, [facility] sling; 01/23/21 (Removed R.N. d, Sche [...] Procedure Summary Date: 01/25/20 Room / Location: [address] 1407 / [facility] - Anesthesia Start: 1309 Anesthesia Stop: 1524 [...] Osteoarthritis Shoulder Left [M19.012] Location: OR 04 [facility] 140 / [facility] - Surgeon: Marv Dodson M.D. Pertinent components of the patient's history including current problem list, medical history, surgical history, family history, social history, medications and allergies were reviewed. Present illnessand pre-op diagnosis were confirmed. The planned surgery / procedure was verified with the patient /legal guardian. The patient's general health condition remains unchanged PROBLEM LIST Relevant Problems CV (+) Atherosclerotic Heart Disease Of [place] Coronary Artery Without Angina Pectoris (+) Peripheral Vascular Disease (HCC) GI (+) Gastroesophageal Reflux Disease Without Esophagitis Other (+) Primary Osteoarthritis Shoulder Left (+) Stroke Cerebrovascular Accident Personal History Hx NSTEMI 08/2018-s/p SHAHAB to LAD-plavix/ASA Labs reviewed EKG- NSR, PVCs, Right BBB S/p Left CEA in past S/p reverse TSA [id number] plus block Hx of memory issues after [...] with patient /legal guardian or through an automotive parts interpreter. Risks/Benefits/Alternatives of Blood transfusion discussed with [...] procedure ar e in the results section. SC US GUIDE PLC NDL Routine 01/25/2020 11:33 AM R esults for this CDT procedure are i n the results section. SC INJ ANES BRACHIAL Routine 01/25/2020 11:33 AM [...] no complications Anali Dodson M.D. ANESTHESIA ORDERABLES SC INJ ANES BRACHIAL PLEX, SC US GUIDE PLC NDL, MC ANE NERVE BLOCK WITH ULTRASOUND (01/25/2020 11:33AM [...] documented as of this encounter Care Teams Fibreglass Laminator Relationship Specialty Start Date End Date Silver Givens M.D., Ph.D. PCP - General Family Medicine 11/10/19 12/09/21 documented as of this encounter
--- OUTSIDE RECORDS SUMMARY | 2022-03-08 11:04 | XMS_ITS | Encounter Summary ---
:1940 Author Organization [facility] Address [address] [place] [address] Care Team Providers Name Role Phone Silver Givens M.D., Ph.D. Primary Care Provider [phone] Reason for Visit Reason Comments Discharge Planning Encounter Details Date Type Department Care Team Description 01/18/2020 Clinical Communication Department of Agnes Jha Disc harge Planning Orthopedic Surgery R.N. in [address] [address] [place], [place] [phone] (Work) [phone] Social History Tobacco Use Types Packs/Day Years [...] Home Care: no Outpatient therapy completed at: [facility] Discharge transportation: yes Plan B: What [...] documented as of this encounter Care Teams State Historical Society Director Relationship Specialty Start Date End Date Silver Givens M.D., Ph.D. PCP - General Family Medicine 11/10/19 12/09/21 documented as of this encounter
--- OUTSIDE RECORDS SUMMARY | 2022-03-08 11:04 | XMS_ITS | Encounter Summary ---
:1940 Author Organization [facility] Address [address] [place] [address] Care Team Providers Name Role Phone Silver Givens M.D., Ph.D. Primary Care Provider Reason for Visit Outpatient (Routine) - Closed Specialty Diagnoses / Procedures Referred By Contact Refer red To Contact General Surgery Diagnoses Primary Osteoarthritis Shoulder Left Marv Dodson [facility] [address] [place] [address] Referral ID Status Reason Start Date Expiration Date Visits Requ ested Visits Authorized [id number] Closed 12/15/2019 12/14/2020 1 1 Encounter Details Date Type Department Care Team Description 01/18/2020 Telemedicine Department of General Rodger Dodson M.D. [address] [place] [address] Preanesthetic Medical Exam (Primary Dx); Surgery in [place] Lu Abby P, [facility] [address] [place] [phone] Primary Osteoarthritis Shoulder Left [place] [address] [place] [address] Social History Tobacco Use Types [...] 01/18/20 regarding surgery on 01/25/20. Surgery Nurse Oracle Ebs Architect Skin Alert Assessment: Complete this section only [...] flat? No Comment: Do you have any yazidi or other objection to having a blood transfusion? No Teaching: Preoperative education was done with (x) patient and his spouse () parent . It was confirmed the patient/family member had received the following preoperative education sheets:Checklist For Surgical Patients ([id number] 06),???Surgical Site Infections: Reducing Your Risk ([id number]), Speak Up: Antibiotics ([id number]), Acute Pain and the Healing Process ([id number]) with the Integrative Medicine and Health (IO7288-68), and ???Appointments Required Before Your Surgery?? (no MC). These were reviewed in detail. (x) Preoperative medication education provided through Ask [place] Expert (x) Preoperative COVID-19 testing ordered and discussed with patient (x)Preop OT appt (total shoulders only). Patient filled out TOTAL JOINT ARTHROPLASTY DISCHARGE PLANNING FORM (agH: Forms 08/30/2013 / CF-108). 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 Additional Pamphlets also reviewed: (x) Shoulder Replacement Surgery: Reverse Prosthesis ([id number]) and reviewed teaching points for total shoulders instructions. Patient is ready to learn, no apparent learning barriers were identified. Reviewed diagnosis and treatment plan; patient verbalized understanding through teach back. All questions were answered. Patient has contact information and understands the need to call with any questions or concerns. Post op appointments: 1st po with surgeon or physician clinical assistant professor: (x) jenelle ()TBD documented in this encounter Plan of Treatment Not on filedocumented as of this encounter Visit Diagnoses Diagnosis Preanesthetic Medical Exam - Primary Primary Osteoarthritis Shoulder Left documented in this encounter Additional Health Concerns Assessment Noted Time PHQ-9 Depression Total Score: 2 03/08/2015 11:16 AM CS T documented as of this encounter Care Teams Milk Delivery Driver Relationship Specialty Start Date End Date Silver Givens M.D., Ph.D. PCP - General Family Medicine 11/10/19 12/09/21 documented as of this encounter
--- OUTSIDE RECORDS SUMMARY | 2022-03-08 11:04 | XMS_ITS | Encounter Summary ---
:1940 Author Organization [facility] Address [address] [place] [address] Care Team Providers Name Role Phone Silver Givens M.D., Ph.D. Primary Care Provider [phone] Reason for Visit Reason Comments Med Refill Encounter Details Date Type Department Care Team Description 03/07/2020 Refill Department of Family Medicine, Mike Givens M.D., Med Refill [facility], in [address] [phone] (Wo rk) Social History Tobacco Use Types Packs/Day Years Used Date Smoking Tobacco: Former Smokeless Tobacco: Never Alcohol Use Standard Drinks/Week Comments No 0 (1 standard drink = 0.6 oz pure alcoho l) Sex Assigned at Date Recorded Not on file documented as of this encounter Miscellaneous Notes Telephone Encounter - Shelly Augustine Derek - 03/07/2020 9:45 AM CST Name of Medication: Pantoprazole Primary Provider: Silver Givens M.D., Ph.D. Strength: 40mg Frequency: Take 40 mg by mouth daily. Pharmacy (include location): [facility] Patient is out of medication AL EXPANSION SALES DIRECTOR documented in this encounter Plan of Treatment Not on filedocumented as of this encounter Visit Diagnoses Not on filedocumented in this encounter Additional Health Concerns Assessment Noted Time PHQ-9 Depression Total Score: 2 03/08/2015 11:16 AM CS T documented as of this encounter Care Teams Php Consultant Relationship Specialty Start Date End Date Silver Givens M.D., Ph.D. PCP - General Family Medicine 11/10/19 12/09/21 documented as of this encounter
--- OUTSIDE RECORDS SUMMARY | 2022-03-08 11:04 | XMS_ITS | Encounter Summary ---
:1940 Author Organization [facility] Address [address] [place] [address] Care Team Providers Name Role Phone Silver Givens M.D., Ph.D. Primary Care Provider [phone] Reason for Visit Physical Therapy (Routine) - Canceled Specialty Diagnoses / Procedures Referred By Contact Refer red To Contact Diagnoses Aftercare Total Shoulder Arthroplasty Laine Day, P.A.-C. [facility] Procedures PT Ongoing treatment [address] [facility] [place] [address] Referral ID Status Reason Start Date Expiration Date Visits V isits Requested Authorized [id number] Canceled 02/07/2020 02/06/2021 99 99 Encounter Details Date Type Department Care Team Description 04/05/2020 Clinical Support Department of Laine Day, P.A.-C. [address] [place] [phone] Aftercare Total Rehabilitation Arti Lundberg, P.T. [address] [place] [phone] Shoulder Services in [address] [phone] Social History Tobacco Use Types Packs/Day Years [...] Lundberg P.T. Department of Rehabilitation Services in [address] [address] Dept: [phone] ENSING AUDIOLOGIST documented in this encounter Plan of Treatment Not on filedocumented as of this encounter Visit Diagnoses Diagnosis Aftercare Total Shoulder Arthroplasty documented in this encounter Additional Health Concerns Assessment Noted Time PHQ-9 Depression Total Score: 2 03/08/2015 11:16 AM CS T documented as of this encounter Care Teams Information Operator Relationship Specialty Start Date End Date Silver Givens M.D., Ph.D. PCP - General Family Medicine 11/10/19 12/09/21 documented as of this encounter
--- OUTSIDE RECORDS SUMMARY | 2022-03-08 11:04 | XMS_ITS | Encounter Summary ---
:1940 Author Organization [facility] Address [address] [place] [address] Care Team Providers Name Role Phone Silver Givens M.D., Ph.D. Primary Care Provider [phone] Encounter Details Date Type Department Care Team [...] documented as of this encounter Care Teams Ic Engineer Relationship Specialty Start Date End Date Silver Givens M.D., Ph.D. PCP - General Family Medicine 11/10/19 12/09/21 documented as of this encounter
--- OUTSIDE RECORDS SUMMARY | 2022-03-08 11:04 | XMS_ITS | Encounter Summary ---
:1940 Author Organization [facility] Address [address] [place] [address] Care Team Providers Name Role Phone Silver Givens M.D., Ph.D. Primary Care Provider [phone] Reason for Visit Physical Therapy (Routine) - Canceled Specialty Diagnoses / Procedures Referred By Contact Refer red To Contact Diagnoses Aftercare Total Shoulder Arthroplasty Laine Day, P.A.-C. [facility] Procedures PT Ongoing treatment [address] [facility] [place] [address] Referral ID Status Reason Start Date Expiration Date Visits V isits Requested Authorized [id number] Canceled 02/07/2020 02/06/2021 99 99 Encounter Details Date Type Department Care Team Description 04/19/2020 Clinical Support Department of Laine Day, P.A.-C. [address] [place] [phone] Aftercare Total Rehabilitation Arti Lundberg, P.T. [address] [place] [phone] Shoulder Services in [address] [phone] Social History Tobacco Use Types Packs/Day Years [...] Lundberg P.T. Department of Rehabilitation Services in [address] [address] Dept: [phone] [facility] documented in this encounter Plan of Treatment Not on filedocumented as of this encounter Visit Diagnoses Diagnosis Aftercare Total Shoulder Arthroplasty documented in this encounter Additional Health Concerns Assessment Noted Time PHQ-9 Depression Total Score: 2 03/08/2015 11:16 AM CS T documented as of this encounter Care Teams Gage Designer Relationship Specialty Start Date End Date Silver Givens M.D., Ph.D. PCP - General Family Medicine 11/10/19 12/09/21 documented as of this encounter
--- OUTSIDE RECORDS SUMMARY | 2022-03-08 11:04 | XMS_ITS | Encounter Summary ---
:1940 Author Organization [facility] Address [address] [place] [address] Care Team Providers Name Role Phone Silver Givens M.D., Ph.D. Primary Care Provider [phone] Reason for Visit Reason Comments Communication 3 day endoscopy call, coval Encounter Details Date Type Department Care Team Description 09/26/2020 Clinical Department of Carmen Mcdonald (3 day Communication General Surgery in [facility] endoscopy call, [place], [address] [place] [address]) [address] [place] [phone] Social History Tobacco Use Types Packs/Day [...] lying flat? No Do you have an adventism or other objection to having a blood transfusion? No Medication Review: Anticoagulation: Yes Diabetic: No Prescription pain medication: No Did you get instructions for what medications to hold? Yes Reviewed booklet with patient including prep, procedural expectations, NPO instructions, arrival time and that they need a bicycle taxi driver: Yes Time patient needs to arrive for procedure: (9:40 AM) Patient verbalizes arrival time and instructions for procedure: Yes If patient is concerned he is not empting pre-procedural, please call the listed number, based on location, the morning of. [phone] [facility] [phone] [facility] [phone] [facility] COVID Screening Questions Does [...] documented as of this encounter Care Teams Power Plant Operator Apprentice Relationship Specialty Start Date End Date Silver Givens M.D., Ph.D. PCP - General Family Medicine 11/10/19 12/09/21 documented as of this encounter
--- OUTSIDE RECORDS SUMMARY | 2022-03-08 11:04 | XMS_ITS | Encounter Summary ---
:1940 Author Organization [facility] Address [address] [place] [address] Care Team Providers Name Role Phone Silver Givens M.D., Ph.D. Primary Care Provider [phone] Reason for Visit Auth/Cert Specialty Diagnoses / Procedures Referred By Contact Refer red To Contact Diagnoses Primary Osteoarthritis Shoulder Left Aftercare Total Shoulder Arthroplasty Primary Osteoarthritis Shoulder Left [M19.012] Procedures ARTHROPLASTY TOTAL REVERSE SHOULDER- Referral ID Status Reason Start Date Expiration Date Visits Requ ested Visits Authorized [id number] 1 1 Encounter Details Date Type Department Care Team Description 01/25/2020 Surgery [facility] MAIN OR Marv Dodson, ARTHROPLASTY TOTAL [address] M[address]D. REVERSE SHOULDER- YARIEL CUMMINS [phone] [address] [phone] [place] Cummins [phone] (Wo rk) Social History Tobacco Use Types [...] SHOULDER- Marv Dodson M.D.Jensen, Jill C, P.A.-C. [facility] OR DISCHARGE DIAGNOSIS: right Reverse TSA DISCHARGE [...] List Diagnosis ??? Atherosclerotic Heart Disease Of [place] Coronary Artery Without Angina Pectoris ??? Stroke [...] total Shoulder with Dr. Marv Dodson in [place] ). HISTORY OF PRESENT ILLNESS Here for preop evaluation. Planned procedure includes left total shoulder replacement on 01/25/[address] [place] [address] Dodson for left shoulder arthritis. [...] INTRAOCULAR LENS; Surgeon: Raymundo Muniz M.D.; Location: [facility] OR ??? EXTRACTION CATARACT WITH INSERTION INTRAOCULAR LENS Left 07/21/2017 Procedure: EXTRACTION CATARACT WITH INSERTION INTRAOCULAR LENS; Surgeon: Raymundo Muniz M.D.; Location: [facility] ??? MOHS SURGERY N/A 06/23/2006 >Mohs [...] file Gets together: Not on file Attends synagogue service: Not on file Active member of [...] Vitamin D #5 Atherosclerotic Heart Disease Of [place] Coronary Artery Without Angina Pectoris #6 Hyperlipidemia [...] List Diagnosis ??? Atherosclerotic Heart Disease Of [place] Coronary Artery Without Angina Pectoris ??? Stroke [...] REVERSE SHOULDER-; Surgeon: Marv Dodson M.D.; Location: [facility] OR ??? CARPAL TUNNEL RELEASE N/A 02/24/2007 [...] INTRAOCULAR LENS; Surgeon: Raymundo Muniz M.D.; Location: [facility] OR ??? EXTRACTION CATARACT WITH INSERTION INTRAOCULAR LENS Left 07/21/2017 Procedure: EXTRACTION CATARACT WITH INSERTION INTRAOCULAR LENS; Surgeon: Raymundo Muniz M.D.; Location: [facility] OR ??? MOHS SURGERY N/A 06/23/2006 >Mohs Micrographic Surgery With Layered Closure. ??? 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 Education with home [...] Time (min): 65 min Ana Villagomez [facility], Third Floor [address] [facility] [address] Dept: [phone] Fortunato Davenport M.D. - 01/25/2020 6:33 PM [...] (HCC) 04/20/2008 ??? Non-ST Elevation Myocardial Infarction ([facility]) 08/15/2018 ??? 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 Post Operative Nausea/Vomiting ??? ST Elevation Myocardial Infarction Of Unspecified Site ([facility]) ??? Stroke ([facility]) PAST SURGICAL HISTORY Past Surgical History: Procedure [...] INTRAOCULAR LENS; Surgeon: Raymundo Muniz M.D.; Location: [facility] OR ??? EXTRACTION CATARACT WITH INSERTION INTRAOCULAR LENS Left 07/21/2017 Procedure: EXTRACTION CATARACT WITH INSERTION INTRAOCULAR LENS; Surgeon: Raymundo Muniz M.D.; Location: [facility] OR ??? 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 Moved in to the town of [facility] with his . Quit smoking 15 years [...] List Diagnosis ??? Atherosclerotic Heart Disease Of [place] Coronary Artery Without Angina Pectoris ??? Stroke [...] total shoulder arthroplasty. SURGEON(S) Marv Dodson MD. MIMEOGRAPHER: Laine Day PA-C. I requested Laine to [...] Marv Dodson M.D. CT CT Job ID: [id number] Brief Op Note - Marv Dodson M.D. - 01/25/2020 1:57 PM CDT BRIEF OP NOTE Procedure(s) (LRB): ARTHROPLASTY TOTAL REVERSE SHOULDER- (Left) Surgeon(s) and Role: * Marv Dodson M.D. - Primary * Laine Day P.A.-C. - Fire Lieutenant Marine Anesthesia Type General with pain block Pre-operative Diagnosis Primary Osteoarthritis Shoulder Left Post-operative Diagnosis Primary Osteoarthritis Shoulder Left Findings As expected. Complications None Specimens None Drains None Estimated Blood Loss 60 mL Implants Implant Name Type Inv. Item Serial No. Registered Sales Assistant Lot No. LRB No. Used Action anatomic reverse shoulder screw syssh Shoulder Implant NA [employer] [id number] Left 1 Implanted BSPLT GLND TRB 15 - SNA - [id number] Shoulder Implant BSPLT GLND TRB 15 NA [employer] [id number] [address] FTHRD LCK 4.5X36 - SNA - [id number] Shoulder Implant SCRW PRT ST FTHRD LCK 4.5X36 NA [employer] [id number] Left 1 Implanted COMP GLND TRB 36 - SNA - [id number] Shoulder Implant COMP GLND TRB 36 NA [employer] [id number] Left 1 Implanted humeral stem Shoulder Implant NA [employer] [id number] Left 1 Implanted SHLDR LNR TRB RVRS +0X36 - SNA - [id number] Shoulder Implant SHLDR LNR TRB RVRS +0X36 NA [employer] [id number] Left 1 Implanted Marv Dodson M.D. documented [...] City/State/ZIP Code Phon e Number [facility] X[facility] [place], [place] [address] [place] [address] System in [place] [address] documented in this encounter Visit Diagnoses Diagnosis Primary Osteoarthritis Shoulder Left - P rimary Aftercare Total Shoulder Arthroplasty Aftercare Total Shoulder Arthroplasty Primary Osteoarthritis Shoulder [...] mg (TYLENOL) 1831 (Given - Provider: Rhonda Abarca R.N.) 0004 [...] 1342 (Given - Provider: Neptali Boyce APRN, RESOURCE DEVELOPMENT MANAGER, R.N.) 2 g (rounded from 1.74 g [...] (New Bag - Provider: Desiree Shepard R.N.) 0526 (New Bag - Provider: Desiree Shepard R.N.) [...] Ba g - Provider: Marv Simmons APRN, JONATHAN)1306 (Anesthesia Volume Adjustment - Provider: Neptali Boyce [...] mg of calcium, oral, Every 2 hour TN N, indigestion, Starting Fri01/25/20 at 1632, Doses [...] documented as of this encounter Care Teams Microfilmer Relationship Specialty Start Date End Date Silver Givens M.D., Ph.D. PCP - General Family Medicine 11/10/19 12/09/21 documented as of this encounter
--- OUTSIDE RECORDS SUMMARY | 2022-03-08 11:04 | XMS_ITS | Encounter Summary ---
:[address] [facility] Address [address] [place] [address] Care Team Providers Name Role Phone Silver Givens M.D., Ph.D. Primary Care Provider [phone] Encounter Details Date Type Department Care Team Description 09/29/2020 Anesthesia Event Department of Vernon Santa APRN, UX LEAD [address] [place] [address] Gastroenterology in [facility] Christa Burt M.D. [address] [place] [address] [phone] Anesthesia Record Procedure Summary Procedure Name Responsible Anesthesiologist Anesthesia Start Ti me Anesthesia Stop Time COLONOSCOPY-P Yordy Santa APRN, 09/29/20 1025 1100 UX LEAD Events Date Time Event Comment 09/29/2020 1022 1025 An Start Machine/Equipmen t Checked Infection Precautions Foll owed Procedure/Site Verified NPO Sta tus Verified Supine Standard ASA Mon itors Applied 1025 Turnover to Proceduralist 1030 Proc Start 1037 Proc Fin 1057 Turnover to ANE Staff 1057 an stop data 1100 An End I completed my h andoff to the receiving staff during whi ch we 1. Identified the patient 2. [...] 01/25/20 1403 by 1418 by Left; bhavani, sling; Brandi Millard, [facility] inic-Backgroun 01/23/21 (Removed by Liu Presley background completion Automated Batch Job utility); 1418 (Removed by background completion utility) Peripheral IV [...] Procedure Summary Date: 09/29/20 Room / Location: [facility] 1412 / [facility] - [place] Anesthesia Start: 1025 Anesthesia Stop: [...] [D50.0] Stool Positive Occult Blood [R19.5] Location: [facility] 141 / [facility] [place] Providers: Wood Car M.D. Pertinent components of the patient's history including current problem list, medical history, surgical history, family history, social history, medications and allergies were reviewed. Present illnessand pre-op diagnosis were confirmed. The planned surgery / procedure was verified with the patient /legal guardian. The patient's general health condition remains unchanged RELEVANT COMORBID CONDITIONS CV (+) Atherosclerotic Heart Disease Of [place] Coronary Artery Without Angina Pectoris (+) Peripheral [...] with patient /legal guardian or through an enamel applier. The use of blood products not discussed [...] as of this encounter Care Teams Band Head Saw Operator Relationship Specialty Start Date End Date Silver Givens M.D., Ph.D. PCP - General Family Medicine 11/10/19 12/09/21 documented as of this encounter
--- OUTSIDE RECORDS SUMMARY | 2022-03-08 11:04 | XMS_ITS | Encounter Summary ---
:1940 Author Organization [facility] Address [address] [place] [address] Care Team Providers Name Role Phone Silver Givens M.D., Ph.D. Primary Care Provider [phone] Encounter Details Date Type Department Care Team Description 09/29/2020 Surgery Department of Gastroenterology Wood Uribe M.D. COLONOSCOPY-P in [facility] [address] [facility] [address] [place] [phone] (Wo rk) Social History Tobacco Use Types [...] CDTAssociated Order(s): UPPER GI ENDOSCOPY [facility] Patient Name: Obey Vines Procedure Date: [...] 10:10 AM CDTAssociated Order(s): COLONOSCOPY [facility] Patient Name: Obey Vines Procedure Date: [...] bowel preparation was evaluated using the BBPS ([place] Bowel Preparation Scale) with scores of: Right [...] Component Value Ref Test Analysis Performed At [facility] Method Time Signature 10/04/2020 ECLR 8:26 [...] Organization Address City/State/ZIP Code Phon e Number [facility]- [address] [place] [phone] [facility] [place] [address] System [address] UPPER GI ENDOSCOPY (09/29/2020 10:14 AM CDT) Specimen (Source) Anatomical Location Collection Method / Collectio n Time Received Time / Laterality Volume Narrative This result has an attachment that is no t available. Procedure Note Wood Car M.D. - 09/29/2020 10:14 AM CDT [facility] Patient Name: Obey Vines Procedure Date: [...] - 09/29/2020 10:10 AM CDT [facility] Patient Name: Obey Flom Procedure Date: 09/29/2020 10:10 AM Date of [...] preparation was ev aluated using the BBPS ([place] Bowel Preparation Scal e) with scores of: [...] documented as of this encounter Care Teams Acquisition Editor Relationship Specialty Start Date End Date Silver Givens M.D., Ph.D. PCP - General Family Medicine 11/10/19 12/09/21 documented as of this encounter
--- OUTSIDE RECORDS SUMMARY | 2022-03-08 11:04 | XMS_ITS | Encounter Summary ---
:1940 Author Organization [facility] Address [address] [place] [address] Care Team Providers Name Role Phone Silver Givens M.D., Ph.D. Primary Care Provider [phone] Reason for Visit Reason Comments Med list questions Encounter Details Date Type Department Care Team Description 01/20/2020 Clinical Communication Department of Silver Givens Me d list questions Family Medicine, Marisela, Ph.D. [address], in [address] [address] [facility] [phone] [place], [place] (Work) [phone] Social History Tobacco Use Types Packs/Day Years Used Date Smoking Tobacco: Former Smokeless Tobacco: Never Alcohol Use Standard Drinks/Week Comments No 0 (1 standard drink = 0.6 oz pure alcoho l) Sex Assigned at Date Recorded Not on file documented as of this encounter Miscellaneous Notes Telephone Encounter - Prachi Davis, RKumar. - 2020 11:10 AM CDT SUBJECTIVE CHIEF [...] documented as of this encounter Care Teams Station Mechanic Relationship Specialty Start Date End Date Silver Givens M.D., Ph.D. PCP - General Family Medicine 11/10/19 12/09/21 documented as of this encounter
--- OUTSIDE RECORDS SUMMARY | 2022-03-08 11:04 | XMS_ITS | Encounter Summary ---
:1940 Author Organization [facility] Address [address] [place] [address] Care Team Providers Name Role Phone Silver Givens M.D., Ph.D. Primary Care Provider Encounter Details Date Type Department Care Team Description 06/19/2020 Orders Only [facility] Sa lindy Kirkland M.D. [address] [place], [place] [phone] (Wo rk) Social History [...] documented as of this encounter Care Teams Rotary Screen Printing Machine Operator Relationship Specialty Start Date End Date Silver Givens M.D., Ph.D. PCP - General Family Medicine 11/10/19 12/09/21 documented as of this encounter
--- OUTSIDE RECORDS SUMMARY | 2022-03-08 11:04 | XMS_ITS | Encounter Summary ---
:1940 Author Organization [facility] Address [address] [place] [address] Care Team Providers Name Role Phone Silver Givens M.D., Ph.D. Primary Care Provider [phone] Encounter Details Date Type Department Care Team Description 09/25/2020 Lab Department of Family Deppe, Hailey Mehta Iron Deficiency Medicine, Professional and M.D. [facility] in [address] [address] [place] [address] [phone] Social History Tobacco Use Types Packs/Day Years [...] RNA, V Asymptomatic (09/25/2020 8:31 AM CDT) [facility] Method Time Signature SARS-CoV-2 Swab, 09/25/2020 [...] pe rformed using the Aptima SARS-CoV-2 assay ([employer] on the Interhyps tem under emergency use authorization (EUA) by the U.S. Food and Drug Administ ration. Fact sheets for this EUA assay can be fo und at the following links: For Healthcare Providers: https://www.PerfectHitch a.gov/media/464191/download For Patients: https://www.fda.gov/media/ 668823/download Specimen Anatomical Collection Method Collection Time Receive d Time (Source) Location / / Volume Laterality Varies 09/25/2020 8:31 AM 2:56 (Nasopharynx) CDT PM CDT Wood Car M.D. LAB MICROBIOLOGY - GENERAL O RDERABLES Performing Organization Address City/State/ZIP Code Phon e Number [facility]- [address] [place] [address] 74 [phone] [facility] [place] [address] System [address] documented in this encounter Visit Diagnoses Diagnosis Anemia Iron Deficiency Blood Loss Chroni c documented in this encounter Additional Health Concerns Infection Onset Date Last Indicated Resolved Time COVID19 Pending 09/25/2020 09/25/2020 09/25/2020 8:20 PM CDT Assessment Noted Time PHQ-9 Depression Total Score: 2 03/08/2015 11:16 AM CS T documented as of this encounter Care Teams Commercial Attorney Relationship Specialty Start Date End Date Silver Givens M.D., Ph.D. PCP - General Family Medicine 11/10/19 12/09/21 documented as of this encounter
--- OUTSIDE RECORDS SUMMARY | 2022-03-08 11:04 | XMS_ITS | Encounter Summary ---
:1940 Author Organization [facility] Address [address] [place] [address] Care Team Providers Name Role Phone Silver Givens M.D., Ph.D. Primary Care Provider Reason for Visit Reason Comments Communication outside referral Encounter Details Date Type Department Care Team Description 09/11/2020 Clinical Department of Ulysses, Communication Communication General Surgery in [facility], (outside referral) Fabricio Kirk L.P.N. [address] [phone] Social History Tobacco Use Types Packs/Day Years [...] Golytely prep from his pharmacy. 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 - 09/11/2020 2:01 PM CDT [facility] Dr. Dontrell Woodward T# [phone] F#[phone] Anemia, unspecified type (D64.9) Gualac positive stools [...] documented as of this encounter Care Teams Car Sales Associate Relationship Specialty Start Date End Date Silver Givens M.D., Ph.D. PCP - General Family Medicine 11/10/19 12/09/21 documented as of this encounter
--- OUTSIDE RECORDS SUMMARY | 2022-03-08 11:04 | XMS_ITS | Encounter Summary ---
:1940 Author Organization [facility] Address [address] [place] [address] Care Team Providers Name Role Phone Silver Givens M.D., Ph.D. Primary Care Provider [phone] Reason for Referral Physical Therapy (Routine) - Closed Specialty Diagnoses / Procedures Referred By Contact Refer red To Contact Diagnoses Aftercare Total Shoulder Arthroplasty Laine Day P.A.-C. [facility] Procedures PT Evaluate and treat [address] [place] [address] Referral ID Status Reason Start Date Expiration Date Visits Requ ested Visits Authorized [id number] Closed 01/26/2020 01/25/2021 1 1 Outpatient (Routine) - Closed Specialty Diagnoses / Procedures Referred By Contact Refer red To Contact Orthopedic Surgery Laine Day P.A. -C. [facility] [address] [place] [phone] Referral ID Status Reason Start Date Expiration Date Visits Requ ested Visits Authorized [id number] Closed 01/26/2020 01/25/2021 1 1 Reason for Visit Auth/Cert Specialty Diagnoses / Procedures Referred By Contact Refer red To Contact Diagnoses Primary Osteoarthritis Shoulder Left Aftercare Total Shoulder Arthroplasty Primary Osteoarthritis Shoulder Left [M19.012] Procedures ARTHROPLASTY TOTAL REVERSE SHOULDER- Referral ID Status Reason Start Date Expiration Date Visits Requ ested Visits Authorized [id number] 1 1 Encounter Details Date Type Department Care Team Description 01/25/2020 - Hospital Encounter [facility], Aftercare Total 01/26/2020 [facility] Giulia Fair. [facility], [address] [place] [address] Arthroplasty Third Floor [place], [place] (Primary Dx) [address] [facility] [address] [place], [place] [phone] [address] (Work) [phone] Social History Tobacco Use Types Packs/Day Years [...] SHOULDER- Marv Dodson M.D.Jensen, Jill C, P.A.-C. [facility] OR DISCHARGE DIAGNOSIS: right Reverse TSA [...] List Diagnosis ??? Atherosclerotic Heart Disease Of [place] Coronary Artery Without Angina Pectoris ??? Stroke [...] left total shoulder replacement on 01/25/[address] [place] [address] Dodson for left shoulder arthritis. [...] INTRAOCULAR LENS; Surgeon: Raymundo Muniz M.D.; Location: [facility] OR ??? EXTRACTION CATARACT WITH INSERTION INTRAOCULAR LENS Left 07/21/2017 Procedure: EXTRACTION CATARACT WITH INSERTION INTRAOCULAR LENS; Surgeon: Raymundo Muniz M.D.; Location: [facility] OR ??? MOHS SURGERY N/A 06/23/2006 [...] file Gets together: Not on file Attends bahai service: Not on file Active member of [...] Vitamin D #5 Atherosclerotic Heart Disease Of [place] Coronary Artery Without Angina Pectoris #6 Hyperlipidemia [...] List Diagnosis ??? Atherosclerotic Heart Disease Of [place] Coronary Artery Without Angina Pectoris ??? Stroke [...] REVERSE SHOULDER-; Surgeon: Marv Dodson M.D.; Location: [facility] OR ??? CARPAL TUNNEL RELEASE N/A [...] INTRAOCULAR LENS; Surgeon: Raymundo Muniz M.D.; [facility] OR ??? EXTRACTION CATARACT WITH INSERTION INTRAOCULAR LENS Left 07/21/2017 Procedure: EXTRACTION CATARACT WITH INSERTION INTRAOCULAR LENS; Surgeon: Raymundo Muniz M.D.; Location: [facility] OR ??? MOHS SURGERY N/A 06/23/2006 >Mohs Micrographic Surgery With Layered Closure. ??? 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 Education with home [...] Time (min): 65 min Ana Villagomez [facility], Third Floor [address] [place] [address] Dept: [phone] Fortunato Davenport M.D. - 01/25/2020 6:33 PM [...] ST Elevation Myocardial Infarction Of Unspecified Site ([facility]) ??? Stroke ([facility]) PAST SURGICAL HISTORY Past Surgical [...] INTRAOCULAR LENS; Surgeon: Raymundo Muniz M.D.; Location: [facility] OR ??? EXTRACTION CATARACT WITH INSERTION INTRAOCULAR LENS Left 07/21/2017 Procedure: EXTRACTION CATARACT WITH INSERTION INTRAOCULAR LENS; Surgeon: Raymundo Muniz M.D.; Location: [facility] OR ??? 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 Moved in to the town of [facility] with his . Quit smoking 15 years [...] List Diagnosis ??? Atherosclerotic Heart Disease Of [place] Coronary Artery Without Angina Pectoris ??? Stroke [...] total shoulder arthroplasty. SURGEON(S) Marv Dodson MD. FLOWER MAKER: Laine Day PA-C. I requested Laine to [...] Marv Dodson M.D. CT CT Job ID: [id number] Brief Op Note - Marv Dodson M.D. - 01/25/2020 1:57 PM CDT BRIEF OP NOTE Procedure(s) (LRB): ARTHROPLASTY TOTAL REVERSE SHOULDER- (Left) Surgeon(s) and Role: * Marv Dodson M.D. - Primary * Laine Day P.A.-C. - Network Security Engineer Anesthesia Type General with pain block Pre-operative Diagnosis Primary Osteoarthritis Shoulder Left Post-operative Diagnosis Primary Osteoarthritis Shoulder Left Findings As expected. Complications None Specimens None Drains None Estimated Blood Loss 60 mL Implants Implant Name Type Inv. Item Serial No. Support Specialist Lot No. LRB No. Used Action anatomic reverse shoulder screw syssh Shoulder Implant NA [employer] [id number] Left 1 Implanted BSPLT GLND TRB 15 - SNA - [id number] Shoulder Implant BSPLT GLND TRB 15 NA [employer] [id number] [address] FTHRD LCK 4.5X36 - SNA - [id number] Shoulder Implant SCRW PRT ST FTHRD LCK 4.5X36 NA [employer] [id number] Left 1 Implanted COMP GLND TRB 36 - SNA - [id number] Shoulder Implant COMP GLND TRB 36 NA [employer] [id number] Left 1 Implanted humeral stem Shoulder Implant NA [employer] [id number] Left 1 Implanted SHLDR LNR TRB RVRS +0X36 - [facility] - [id number] Shoulder Implant SHLDR LNR TRB RVRS +0X36 NA [employer] [id number] Left 1 Implanted Marv Dodson M.D. documented [...] Code Phon e Number [facility]- [address] [place], [place] [address] [email or web address] [address] System in [place] Xander Mirza documented in this encounter Visit Diagnoses Diagnosis Primary Osteoarthritis Shoulder Left - P rimary Aftercare Total Shoulder Arthroplasty Aftercare Total Shoulder Arthroplasty Atherosclerotic Heart Disease Of [place] Coronary Artery Without Angina Pectoris Stroke Cerebrovascular [...] 1342 (Given - Provider: Neptali Boyce APRN, CRNA, R.N.) 2 g (rounded from 1.74 g [...] Ba g - Provider: Marv Simmons APRN, MANAGER EDUCATIONAL)1306 (Anesthesia Volume Adjustment - Provider: Neptali Boyce [...] mg of calcium, oral, Every 2 hour VT N, indigestion, Starting Fri01/25/20 at 1632, Doses [...] documented as of this encounter Care Teams Trim Stencil Maker Relationship Specialty Start Date End Date Silver Givens M.D., Ph.D. PCP - General Family Medicine 11/10/19 12/09/21 documented as of this encounter
--- OUTSIDE RECORDS SUMMARY | 2022-03-08 11:04 | XMS_ITS | Encounter Summary ---
:1940 Author Organization [facility] Address [address] [place] [address] Care Team Providers Name Role Phone Silver Givens M.D., Ph.D. Primary Care Provider [phone] Encounter Details Date Type Department Care Team Description 09/29/2020 Hospital Encounter Department of Wood Car, Gastroenterology in [address] [phone] [phone] Social History Tobacco Use Types Packs/Day Years [...] CDTAssociated Order(s): UPPER GI ENDOSCOPY [facility] Patient Name: Obey Vines Procedure Date: [...] 10:10 AM CDTAssociated Order(s): COLONOSCOPY [facility] Patient Name: Obey Vines Procedure Date: [...] bowel preparation was evaluated using the BBPS (Hope Bowel Preparation Scale) with scores of: Right [...] Component Value Ref Test Analysis Performed At [facility] Method Time Signature 10/04/2020 [...] Address City/State/ZIP Code Phon e Number [facility]- [address] [place] [address] [phone] [facility] [place] [place] [address] System in [address] UPPER GI ENDOSCOPY (09/29/2020 10:14 AM CDT) Specimen (Source) Anatomical Location Collection Method / Collectio n Time Received Time / Laterality Volume Narrative This result has an attachment that is no t available. Procedure Note Wood Car M.D. - 09/29/2020 10:14 AM CDT [facility] Patient Name: Obey Vines Procedure Date: [...] - 09/29/2020 10:10 AM CDT [facility] Patient Name: Obey Vines Procedure Date: [...] preparation was ev aluated using the BBPS (Hope Bowel Preparation Scal e) with scores of: [...] of this encounter Care Teams Director Of Content And Programming Relationship Specialty Start Date End Date Silver Givens M.D., Ph.D. PCP - General Family Medicine 11/10/19 12/09/21 documented as of this encounter
--- OUTSIDE RECORDS SUMMARY | 2022-03-08 11:04 | XMS_ITS | Encounter Summary ---
:1940 Author Organization [facility] Address [address] [place] [address] Care Team Providers Name Role Phone Silver Givens M.D., Ph.D. Primary Care Provider [phone] Reason for Visit Auth/Cert Specialty Diagnoses / Procedures Referred By Contact Refer red To Contact Diagnoses Primary Osteoarthritis Shoulder Left Aftercare Total Shoulder Arthroplasty Primary Osteoarthritis Shoulder Left [M19.012] Procedures ARTHROPLASTY TOTAL REVERSE SHOULDER- Referral ID Status Reason Start Date Expiration Date Visits Requ ested Visits Authorized [id number] 1 1 Encounter Details Date Type Department Care Team Description 01/22/2020 Hospital Encounter Department of [place], Primary Osteoarthritis Laboratory Medicine Giulia Fair Shoulder Left in [address] [address] [place], [place] [phone] (Work) [phone] Social History Tobacco Use Types Packs/Day Years [...] RNA, V Asymptomatic (01/22/2020 9:29 AM CDT) [facility] Method Time Signature SARS-CoV-2 Swab, 01/22/2020 ECLR [...] is performed using the Aptima SARS-CoV-2 assay ([employer] which has received Emergency Use Authori zation (EUA) by the U.S. Food and Drug Administration. Fact sheets for this Emergency Use Autho rization (EUA) assay can be found at the following links: For Healthcare Providers: https://www.Skytide a.gov/media/991004/download For Patients: https://www.fda.gov/media/ 881296/download Specimen Anatomical Collection Method Collection Time Receive d Time (Source) Location / / Volume Laterality Varies 01/22/2020 9:29 AM 0 3:53 (Nasopharynx) CDT PM CDT Marv Dodson M.D. LAB MICROBIOLOGY - GENERAL O KIMI Performing Organization Address City/State/ZIP Code Phon e Number - [address] [place] [address] [phone] [facility] [place] [address] System in [address] documented in this encounter Visit Diagnoses Diagnosis Primary Osteoarthritis Shoulder Left documented in this encounter Additional Health Concerns Infection Onset Date Last Indicated Resolved Time COVID19 Pending 01/22/2020 01/22/2020 01/22/2020 11:33 PM CDT Assessment Noted Time PHQ-9 Depression Total Score: 2 03/08/2015 11:16 AM CS T documented as of this encounter Care Teams Sales Service Assistant Relationship Specialty Start Date End Date Silver Givens M.D., Ph.D. PCP - General Family Medicine 11/10/19 12/09/21 documented as of this encounter
--- OUTSIDE RECORDS SUMMARY | 2022-03-08 11:04 | XMS_ITS | Encounter Summary ---
:1940 Author Organization [facility] Address [address] [place] [address] Care Team Providers Name Role Phone Silver Givens M.D., Ph.D. Primary Care Provider Reason for Referral Outpatient (Routine) - Closed Specialty Diagnoses / Procedures Referred By Contact Refer red To Contact Orthopedic Surgery [facility]aine Day [facility]A. [facility] [address] [address] Referral ID Status Reason Start Date Expiration Date Visits Requ ested Visits Authorized [id number] Closed 02/09/2020 02/08/2021 1 1 Reason for Visit Reason Comments Follow-up Arthroplasty Outpatient (Routine) - Closed Specialty Diagnoses / Procedures Referred By Contact Refer red To Contact Orthopedic Surgery Marv Dodson M. D. [address] [phone] Referral ID Status Reason Start Date Expiration Date Visits Requ ested Visits Authorized [id number] Closed 12/15/2019 12/14/2020 1 1 Encounter Details Date Type Department Care Team Description 02/09/2020 Office Visit Department of Day, Laine C, Follow Up E xamination Orthopedic Surgery in [place]. Postoperative Visit Fabricio Kirk [place] [address] (Primary Dx) [address] [place] [address] [phone] Social History Tobacco Use Types Packs/Day Years [...] documented as of this encounter Care Teams Cyber Intel Planner Relationship Specialty Start Date End Date Silver Givens M.D., Ph.D. PCP - General Family Medicine 11/10/19 12/09/21 documented as of this encounter
--- OUTSIDE RECORDS SUMMARY | 2022-03-08 11:04 | XMS_ITS | Encounter Summary ---
:1940 Author Organization [facility] Address [address] [place] [address] Care Team Providers Name Role Phone Silver Givens M.D., Ph.D. Primary Care Provider [phone] Reason for Visit Physical Therapy (Routine) - Canceled Specialty Diagnoses / Procedures Referred By Contact Refer red To Contact Diagnoses Aftercare Total Shoulder Arthroplasty Laine Day, P.A.-C. [facility] Procedures PT Ongoing treatment [address] [facility] [place] [address] Referral ID Status Reason Start Date Expiration Date Visits V isits Requested Authorized [id number] Canceled 02/07/2020 02/06/2021 99 99 Encounter Details Date Type Department Care Team Description 02/28/2020 Clinical Support Department of Laine Day, P.A.-C. [address] [place] [phone] Aftercare Total Rehabilitation Arti Lundberg, P.T. [address] [place] [phone] Shoulder Services in [address] [phone] Social History Tobacco Use Types Packs/Day Years [...] Lundberg P.T. Department of Rehabilitation Services in [address] [address] Dept: [phone] documented in this encounter Plan of Treatment Not on filedocumented as of this encounter Visit Diagnoses Diagnosis Aftercare Total Shoulder Arthroplasty documented in this encounter Additional Health Concerns Assessment Noted Time PHQ-9 Depression Total Score: 2 03/08/2015 11:16 AM CS T documented as of this encounter Care Teams Clinical Administrator Relationship Specialty Start Date End Date Silver Givens M.D., Ph.D. PCP - General Family Medicine 11/10/19 12/09/21 documented as of this encounter
--- OUTSIDE RECORDS SUMMARY | 2022-03-08 11:04 | XMS_ITS | Encounter Summary ---
:1940 Author Organization [facility] Address [address] [place] [address] Care Team Providers Name Role Phone Silver Givens M.D., Ph.D. Primary Care Provider Reason for Visit Reason Comments Communication 3 month endoscopy call, susanna salmeron Encounter Details Date Type Department Care Team Description 09/12/2020 Clinical Department of Carmen Mcdonald (3 Communication General Surgery in A, L.P.N. month endoscopy call, Fabricio Kirk, [address] [place], [place] [address]shanae vanks) [address] [phone] Social History Tobacco Use Types Packs/Day [...] Gualac positive stools (R19.5 If scheduled in [facility], pre-op appointment scheduled: No Pre-Endoscopy Education done: [...] testing 3-7 days prior at [address] [place] [address] documented in this encounter Plan of Treatment Not on filedocumented as of this encounter Results SARS Coronavirus-2 RNA, V Asymptomatic (09/25/2020 8:31 AM CDT) [facility] Method Time Signature SARS-CoV-2 Swab, 09/25/2020 ECLR [...] pe rformed using the Aptima SARS-CoV-2 assay ([employer] on the PubNubs tem under emergency use authorization (EUA) by the U.S. Food and Drug Administ ration. Fact sheets for this EUA assay can be fo und at the following links: For Healthcare Providers: https://www.Oceana Therapeutics a.gov/media/746007/download For Patients: https://www.fda.gov/media/ 908217/download Specimen Anatomical Collection Method Collection Time Receive d Time (Source) Location / / Volume Laterality Varies 09/25/2020 8:31 AM 2:56 (Nasopharynx) CDT PM CDT Wood Car M.D. LAB MICROBIOLOGY - GENERAL O RDERABLES Performing Organization Address City/State/[facility] Phon e Number [facility]- [address] [place] [address] 54 [phone] [facility] [place] [address] System in [address] documented in this encounter Visit Diagnoses Diagnosis Anemia Iron Deficiency Blood Loss Chroni c - Primary documented in this encounter Additional Health Concerns Assessment Noted Time PHQ-9 Depression Total Score: 2 03/08/2015 11:16 AM CS T documented as of this encounter Care Teams Court Officer Relationship Specialty Start Date End Date Silver Givens M.D., Ph.D. PCP - General Family Medicine 11/10/19 12/09/21 documented as of this encounter
--- OUTSIDE RECORDS SUMMARY | 2022-03-08 11:05 | XMS_ITS | Encounter Summary ---
:1940 Author Organization [facility] Address [address] [place] [address] Care Team Providers Name Role Phone Silver Givens M.D., Ph.D. Primary Care Provider [phone] Reason for Visit Reason Comments Covid Screening Encounter Details Date Type Department Care Team Description 11/10/2019 Clinical Communication Department of Mike Montelongo, Covid Screening MedicineMargarito M.D., Ph.D. [facility], [address] [address] [place], [place] [phone] (Work) [phone] Social History Tobacco Use Types Packs/Day Years Used Date Smoking Tobacco: Former Smokeless Tobacco: Never Alcohol Use Standard Drinks/Week Comments No 0 (1 standard drink = 0.6 oz pure alcoho l) Sex Assigned at Date Recorded Not on file documented as of this encounter Miscellaneous Notes Telephone Encounter - Mattie Mensah - 11/10/2019 4:06 PM CDT ([place] and [place] [facility] locations only: If the patient is not having symptoms and is requesting COVID-19 Nasal Swab testing only, use the process listed in the COVID-19 Patient Requesting COVID PCR Test OTG COVID-19 [place] Patient Requesting COVID PCR Test). 1. Do [...] Route reply to: n/a Scheduling Contact Number: [phone] documented in this encounter Plan of Treatment Not on filedocumented as of this encounter Visit Diagnoses Not on filedocumented in this encounter Additional Health Concerns Assessment Noted Time PHQ-9 Depression Total Score: 2 03/08/2015 11:16 AM CS T documented as of this encounter Care Teams Estimating Engineer Relationship Specialty Start Date End Date Silver Givens M.D., Ph.D. PCP - General Family Medicine 11/10/19 12/09/21 documented as of this encounter
--- OUTSIDE RECORDS SUMMARY | 2022-03-08 11:05 | XMS_ITS | Encounter Summary ---
:1940 Author Organization [facility] Address [address] [place] [address] Care Team Providers Name Role Phone Elsewhere, Pcp Primary Care Provider Unavailable Reason for Visit Reason Onset Date Comments cardiac rehab referral 08/17/2018 Encounter Details Date Type Department Care Team Description 08/17/2018 Clinical Department of Greg cardiac rehab Communication Cardiovascular Sophia Soares, referral Medicine in [place], [place] [address] [facility] [address] [place] [phone] Social History Tobacco Use Types Packs/Day Years Used Date Smoking Tobacco: Former Smokeless Tobacco: Never Alcohol Use Standard Drinks/Week Comments No 0 (1 standard drink = 0.6 oz pure alcoho l) Sex Assigned at Date Recorded Not on file documented as of this encounter Miscellaneous Notes Telephone Encounter - Sophia Garza, [facility] - 08/17/2018 11:22 AM CDT INFORMATION [...] referral if participation is recommended. 2. Eligibility: [place] and [place] 3. Exceptions/exclusions: None 4. Referral: [...] documented as of this encounter Care Teams Pleating Supervisor Relationship Specialty Start Date End Date Elsewhere, Pcp PCP - General Internal Medicine 08/17/18 11/09/19 documented as of this encounter
--- OUTSIDE RECORDS SUMMARY | 2022-03-08 11:05 | XMS_ITS | Encounter Summary ---
:1940 Author Organization [facility] Address [address] [place] [address] Care Team Providers Name Role Phone Silver Givens M.D., Ph.D. Primary Care Provider [phone] Reason for Referral Outpatient (Routine) - Closed Specialty Diagnoses / Procedures Referred By Contact Refer red To Contact Family Medicine Diagnoses Primary Osteoarthritis Shoulder Left Marv Dodson [facility] [place] [address] [place] [address] Referral ID Status Reason Start Date Expiration Date Visits Requ ested Visits Authorized [id number] Closed 12/15/2019 12/14/2020 1 1 Outpatient (Routine) - Closed Specialty Diagnoses / Procedures Referred By Contact Yeimi pemberton To Contact General Surgery Diagnoses Primary Osteoarthritis Shoulder Left Marv Dodson [facility] [place] [address] [facility] [place] [address] Referral ID Status Reason Start Date Expiration Date Visits Requ ested Visits Authorized [id number] Closed 12/15/2019 12/14/2020 1 1 Outpatient (Routine) - Closed Specialty Diagnoses / Procedures Referred By Contact Refer nilay To Contact Orthopedic Surgery Marv Dodson M. D. [facility] [address] [place] [address] Referral ID Status Reason Start Date Expiration Date Visits Requ ested Visits Authorized [id number] Closed 12/15/2019 12/14/2020 1 1 Reason for Visit Reason Comments Pain Follow-up Appointment Request (Routine) - Closed Specialty Diagnoses / Procedures Referred By Contact Refer nilay To Contact Orthopedic Surgery Referral ID Status Reason Start Date Expiration Date Visits Requ ested Visits Authorized [id number] Closed 11/26/2019 11/25/2020 1 1 Encounter Details Date Type Department Care Team Description 12/15/2019 Office Visit Department of [place], Primary Osteoa rthritis Orthopedic Surgery in [place] Shoulder Left (Primary [address] Dx) [address] [place], [place] [address] [phone] Social History Tobacco Use Types Packs/Day Years [...] Type Priority Associated Diagnoses Order [facility] Orthopedic Surgery Outpatient Referral Routine Ex pected: [...] RNA, V Asymptomatic (01/22/2020 9:29 AM CDT) [facility] Method Time Signature SARS-CoV-2 Swab, 01/22/2020 [...] is performed using the Aptima SARS-CoV-2 assay ([employer] which has received Emergency Use Authori zation (EUA) by the U.S. Food and Drug Administration. Fact sheets for this Emergency Use Autho rization (EUA) assay can be found at the following links: For Healthcare Providers: https://www.FINXI a.gov/media/926398/download For Patients: https://www.fda.gov/media/ 370319/download Specimen Anatomical Collection Method Collection Time Receive d Time (Source) Location / / Volume Laterality Varies 01/22/2020 9:29 AM 0 3:53 (Nasopharynx) CDT PM CDT Marv Dodson M.D. LAB MICROBIOLOGY - GENERAL O RDERABLES Performing Organization Address City/State/ZIP Code Phon e Number [facility]- [address] [place] [address] [phone] [facility] [place] [address] System in [address] DX Shoulder Left 2+ Views (12/15/2019 [...] left rib deformity. [facility] ISAAC documented in this encounter Visit Diagnoses Diagnosis Primary Osteoarthritis Shoulder Left - P rimary Primary Osteoarthritis Shoulder Left documented in this encounter Additional Health Concerns Assessment Noted Time PHQ-9 Depression Total Score: 2 03/08/2015 11:16 AM CS T documented as of this encounter Care Teams Shipping And Receiving Material Handler Relationship Specialty Start Date End Date Silver Givens M.D., Ph.D. PCP - General Family Medicine 11/10/19 12/09/21 documented as of this encounter
--- OUTSIDE RECORDS SUMMARY | 2022-03-08 11:05 | XMS_ITS | Encounter Summary ---
:1940 Author Organization [facility] Address [address] [place] [address] Care Team Providers Name Role Phone Silver Givens M.D., Ph.D. Primary Care Provider [phone] Reason for Visit Reason Comments Medication Visit recheck Encounter Details Date Type Department Care Team Description 12/14/2019 Office Visit Department of Family Silver Givens, Pain Shoulder Left (Primary Dx); MedicineMargarito M.D., Ph.D. Atherosclerotic Heart Disease Of [place] Coronary Artery Without Angina Pectoris; 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; [place], [facility] Hyperlipidemia; [place], [place] Peripheral Vascular Disease (HCC); [address] [place] [address] [address] [address] Polymyalgia Rheumatica (HCC) [place], [place] [phone] (Work) [phone] Social History Tobacco Use Types Packs/Day Years [...] orthopedic evaluation #2 Atherosclerotic Heart Disease Of [place] Coronary Artery Without Angina Pectoris Continue current [...] Left - Primary Atherosclerotic Heart Disease [facility] [place] Coronary Artery Without Angina Pectoris Hypertensive Heart Disease Without Heart Failure Hyperlipidemia Peripheral Vascular Disease (HCC) Polymyalgia Rheumatica (HCC) documented in this encounter Additional Health Concerns Assessment Noted Time PHQ-9 Depression Total Score: 2 03/08/2015 11:16 AM CS T documented as of this encounter Care Teams Bulldozer Operator Relationship Specialty Start Date End Date Silver Givens M.D., Ph.D. PCP - General Family Medicine 11/10/19 12/09/21 documented as of this encounter
--- OUTSIDE RECORDS SUMMARY | 2022-03-08 11:05 | XMS_ITS | Encounter Summary ---
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
--- OUTSIDE RECORDS SUMMARY | 2022-03-08 11:05 | XMS_ITS | Encounter Summary ---
:1940 Author Organization [facility] Address [address] [place] [id number] Care Team Providers Name Role Phone Unavailable Primary Care Provider Unavailable Encounter Details Date Type Department Care Team Description 08/15/2018 - Hospital Encounter [facility] Melanie Calderon M.B., B.Ch. [address] [place] [phone] Non-ST Elevation 08/16/2018 [facility], Tom Vines M.D., Ph.D. [address] [place] [phone] [facility] Infarction (HCC) [facility], (Primary Dx) Fifth Floor [address] [place] [phone] Social History Tobacco Use Types Packs/Day Years [...] Case IDs Date Procedure Surgeon Location Status [id number] 08/15/18 Coronary Angiography Jacques Barraza M.D. RST [...] started on heparin drip and transferred to [facility] for further management of NSTEMI. He underwent [...] exam, and recommendations by Dr. Meier. #1 Yla-SS-darkrgxuf myocardial infarction Mr. Vines will continue with [...] with the plan. CT CT Job ID: [id number] documented in this encounter H&P Notes Tom [...] intravenous heparin. He was taken to the [facility] this morning, after informed consent was [...] by Dr. Monk and Dr. Corral. #1 Qty-AG-cfgvhhezs myocardial infarction Mr. Vnies was preloaded with aspirin as well as [...] with the plan. CT CT Job ID: [id number] Reji Espitia M.D. - 08/15/2018 8:47 AM [...] focal neurologic complaints. In the ED in [place], he was noted to have stable vitals [...] on heparin gtt prior to transfer to [facility]. Upon arrival, he is hemodynamically stable [...] focal neurologic complaints. In the ED in [place], he was noted to have stable vitals [...] on heparin gtt prior to transfer to [facility]. Upon arrival, he is hemodynamically stable [...] male with a history of CAD s/p FL and stent placement (mid-RCA, 2011), hyperlipidemia, and [...] physician spoke with Dr. Calderon at [facility] for recommendations and was suggested to treat his NSTEMI with aspirin 324 mg oral, Plavix 300 mg oral, and start a heparin bolus and drip. The was then transferred to [facility] via ambulance for further management of his [...] GERD, hyperlipidemia, ischemic stroke, CAD status post FL and stent placement - Surgical history: Carotid [...] ASSESSMENT/PLAN #1 NSTEMI #2 Coronary artery disease, FL s/p stent to mid-RCA (2011) #3 Ischemic stroke s/p carotid enterectomy #4 Hyperlipidemia Mr. Vines is a 78 y/o male with a history of CAD s/p FL and stent placement (mid- RCA, 2011) and [...] Summary: Education complete. Pt will d/c to [facility]. No further questions CARDIOVASCULAR - ADULT ??? [...] Implant Name Type Inv. Item Serial No. Display Associate Lot No. LRB No. Used Action STNT SYNERGY SHAHAB [id number] - [id number] Cardiac Stent STNT SYNERGY SHAHAB [id number] [employer] [id number] N/A 1 Implanted Antiplatelet regimen: Aspirin 81 [...] Jung Castro M.D., M.P.H. Interventional and [employer] [facility] 08/15/18 9:53 AM documented in [...] started on heparin drip and transferred to [facility] for further management of NSTEMI. He underwent [...] Basic Metabolic Panel (08/16/2018 7:44 AM CDT) [facility] gist Method Time Signature Potassium, S 4.2 3.6 - 5.2 08/16/2018 [facility] mmol/L 8:51 AM CDT LABORATORIES [facility] Sodium, S 141 135 - 145 08/16/2018 [facility] mmol/L 8:51 AM CDT [facility]IES [facility] Chloride, S 102 98 - 107 08/16/2018 [facility] mmol/L 8:51 AM CDT [facility]IES [facility] Bicarbonate, S 23 22 - 29 08/16/2018 [facility] mmol/L 8:51 AM CDT [facility]IES [facility] Anion Gap 16 (H) 7 - 15 08/16/2018 [facility] 8:51 AM CDT LAB[facility]ATORIES [facility] BUN (Blood Urea 16 8 - 24 08/16/2018 [facility] Nitrogen), S mg/dL 8:51 AM T [facility] Creatinine 1.18 0.74 - 08/16/2018 [facility] 1.35 mg/dL 8:51 AM T [facility] eGFR-Non 59 (L) >=60 08/16/2018 [facility] Black/ mL/min/BSA 8:51 AM CDT LABORATORIES [facility] Comment: ----ADDITIONAL INFORMATION---- Estimated GFR calculated using the 2009 CKD_EPI creatinine equation. eGFR-Black/ 68 >=60 mL/min/BSA 08/16/2018 8:51 [facility] ERT [facility] Comment: ----ADDITIONAL INFORMATION---- Estimated GFR calculated using the 2009 CKD_EPI creatinine equation. Calcium, Total, S 9.5 8.8 - 10.2 mg/dL 08/16/2018 8:51 AM [facility] CDT [facility] S Glucose, S 100 70 - 140 mg/dL 08/16/2018 8:51 AM [facility] S Specimen Anatomical Collection Method Collection Time Receive d Time (Source) Location / / Volume Laterality Blood (Blood, 08/16/2018 7:44 AM 08/17/19 19 8:16 Venous) CDT AM CDT Tom Johnson M.D., Ph.D. LAB BLOOD ADD-ON Performing Organization Address City/State/ZIP Code Phon e Number [facility] - [address] [place] [address] [facility] CBC with Differential, Blood (08/16/2018 7:44 AM CDT) [facility] Method Time Signature Hemoglobin 15.2 13.2 - 08/16/2018 [facility] 16.6 g/dL 8:21 AM CDT LABORATORIES - [facility] Hematocrit 44.7 38.3 - 08/16/2018 [facility] 48.6 % 8:21 AM CDT LABORATORIES - [facility] Erythrocytes 4.99 4.35 - 08/16/2018 [facility] 5.65 8:21 AM CDT LABORATORIES - x10(12)/L [facility] MCV 89.6 78.2 - 08/16/2018 [facility] 97.9 fL 8:21 AM CDT LABORATORIES - [facility] RBC Distrib Width 14.1 11.8 - 08/16/2018 [facility] 14.5 % 8:21 AM CDT LABORATORIES - [facility] Platelet Count 231 135 - 317 08/16/2018 [facility] x10(9)/L 8:21 AM CDT LABORATORIES - [facility] Leukocytes 8.1 3.4 - 9.6 08/16/2018 [facility] x10(9)/L 8:21 AM CDT LABORATORIES - [facility] Neutrophils 5.20 1.56 - 08/16/2018 [facility] 6.45 8:21 AM CDT LABORATORIES - x10(9)/L [facility] Lymphocytes 2.03 0.95 - 08/16/2018 [facility] 3.07 8:21 AM CDT LABORATORIES - x10(9)/L [facility] Monocytes 0.60 0.26 - 08/16/2018 [facility] 0.81 8:21 AM CDT LABORATORIES - x10(9)/L [facility] Eosinophils 0.20 0.03 - 08/16/2018 [facility] 0.48 8:21 AM CDT LABORATORIES - x10(9)/L [facility] Basophils 0.04 0.01 - 08/16/2018 [facility] 0.08 8:21 AM CDT LABORATORIES - x10(9)/L [facility] Specimen Anatomical Collection Method Collection Time Receive d Time (Source) Location / / Volume Laterality Blood (Blood, 08/16/2018 7:44 AM 08/17/19 19 8:16 Venous) CDT AM CDT Tom Johnson M.D., Ph.D. LAB BLOOD ADD-ON Performing Organization Address [facility] Phon e Number [facility] LABORATORIES - [address] [place] [address] [facility] (ABNORMAL) Troponin T, 6H, 5th Gen (08/15/2018 12:37 PM CDT) Patholo gist Method Time Signature Troponin T, 6 433 (H) <=15 ng/L 08/15/2018 [facility] hr, 5th gen 1:09 PM CDT LABORATORIES [facility] Comment: Consider acute myocardial injur y 6H Delta 127 ng/L 08/15/2018 1:09 PM CDT [facility] IN LABORATORIES - [facility] S 6H Delta Interp Changing 08/15/2018 1:09 PM CDT [facility] S Comment: Evaluate for acute myocardial i njury Specimen Anatomical Collection Method Collection Time Receive d Time (Source) Location / / Volume Laterality Blood 08/15/2018 12:37 08/15/2018 PM CDT 12:43 PM CDT Darvin Corral M.D. LAB BLOOD TROPONIN Performing Organization Address [facility] Code Phon e Number [facility] LABORATORIES - [address] [place] [phone] [facility] Heparin Anti-Xa Assay (08/15/2018 11:00 AM CDT) P athologist Signature Heparin 1.62 IU/mL 08/15/2018 [facility] Anti-Xa, P 12:53 PM CDT [facility] Comment: UFH therapeutic range: ?? 0.30-0.70 [...] Organization Address City/State/ZIP Code Phon e Number [facility] LABORATORIES - [address] [place] [address] [facility] CORONARY ANGIOGRAPHY, STENT PLACEMENT, PERCUTANEOUS CORONARY ANGIOPLASTY [...] POCT ORDERABLES - DEVICE Performing Organization Address City/[facility]/ZIP Code Phon e Number POC RST [facility] INPATIENT LABS [address] [facility] [place] [address] (ABNORMAL) ACT (Activated Clotting Time), POCT (08/15/2018 [...] Code Phon e Number POC RST [facility] INPATIENT LABS [address] [facility] [address] Bilirubin, Direct (08/15/2018 6:00 AM CDT) P athologist Signature Bilirubin, 0.2 0.0 - 0.3 08/15/2018 [facility] Direct, S mg/dL 8:25 AM CDT LABORATORIES - [facility] Specimen Anatomical Collection Method Collection Time Receive d Time (Source) Location / / Volume Laterality Blood (Blood, 08/15/2018 6:00 AM 08/16/19 19 6:20 Venous) CDT AM CDT Vaughn Rader M.D., Ph.D. LAB BLOOD ADD-ON Performing Organization Address City/State/ZIP Code Phon e Number [facility] LABORATORIES - [address] [place], [place] [address] [facility] (ABNORMAL) Comprehensive Metabolic Panel (08/15/2018 6:00 AM CDT) Patholo gist Method Time Signature Potassium, S 4.5 3.6 - 5.2 08/15/2018 [facility] mmol/L 8:25 AM CDT LABORATORIES - [facility] Sodium, S 144 135 - 145 08/15/2018 [facility] mmol/L 8:25 AM CDT LABORATORIES - [facility] Chloride, S 102 98 - 107 08/15/2018 [facility] mmol/L 8:25 AM CDT LABORATORIES - [facility] Bicarbonate, S 24 22 - 29 08/15/2018 [facility] mmol/L 8:25 AM CDT LABORATORIES - [facility] Anion Gap 18 (H) 7 - 15 08/15/2018 [facility] 8:25 AM CDT LABORATORIES - [facility] BUN (Blood Urea 14 8 - 24 08/15/2018 [facility] Nitrogen), S mg/dL 8:25 AM CDT LABORATORIES - [facility] Creatinine 1.14 0.74 - 08/15/2018 [facility] 1.35 mg/dL 8:25 AM CDT LABORATORIES - [facility] eGFR-Non 62 >=60 08/15/2018 [facility] Black/ mL/min/BSA 8:25 AM CDT LABORATORIES - [facility] Comment: ----ADDITIONAL INFORMATION---- Estimated GFR calculated using the 2009 CKD_EPI creatinine equation. eGFR-Black/ 71 >=60 mL/min/BSA 08/15/2018 8:25 [facility] Togolese AM CDT [facility] Comment: ----ADDITIONAL INFORMATION---- Estimated GFR calculated using the 2009 CKD_EPI creatinine equation. Calcium, Total, S 9.6 8.8 - 10.2 08/15/2018 8:25 [facility] mg/dL AM CDT LABORATORIES [facility] Glucose, S 102 70 - 140 08/15/2018 8:25 [facility] mg/dL AM CDT LABORATORIES [facility] Protein, Total, S 6.4 6.3 - 7.9 08/15/2018 8:25 [facility] LINIC g/dL AM CDT [facility] Albumin, S 4.3 3.5 - 5.0 08/15/2018 8:25 [facility] g/dL AM CDT [facility] Aspartate 62 (H) 8 - 48 U/L 08/15/2018 8:25 [facility] Aminotransferase (AST), AM CDT LABORA TORIES - S [facility] Alkaline Phosphatase, S 142 (H) 40 - 129 U/L 08/15/2018 8: 25 [facility] CDT LABORATORIES [facility] Alanine Aminotransferase 25 7 - 55 U/L 08/15/2018 8:2 5 [facility] (ALT), S AM CDT [facility] Bilirubin, Total, S 1.2 <=1.2 mg/dL 08/15/2018 8:25 [facility] CDT [facility] Specimen Anatomical Collection Method Collection Time Receive d Time (Source) Location / / Volume Laterality Blood (Blood, 08/15/2018 6:00 AM 08/16/19 19 6:20 Venous) CDT AM CDT Vaughn Rader M.D., Ph.D. LAB BLOOD ADD-ON Performing Organization Address City/State/ZIP Code Phon e Number [facility] - [address] [place], [place] [address] [facility] (ABNORMAL) Troponin T, 2H/6H, 5th Gen (08/15/2018 6:00 AM CDT) [facility] Method Time Signature Troponin T, 2 366 (H) <=15 ng/L 08/15/2018 [facility] hr, 5th gen 6:38 AM CDT LABORATORIES [facility] Comment: Consider acute myocardial injur y 2H Delta 60 ng/L 08/15/2018 6:38 AM CDT [facility] IN LABORATORIES - [facility] S 2H Delta Interp Changing 08/15/2018 6:38 AM CDT [facility] S Comment: Evaluate for acute myocardial i njury Troponin T, 6 hr, 5th CANCELED ng/L 08/15/2018 11: 23 AM [facility] gen CDT - [facility] Comment: Hemolyzed redraw requested Result canceled by the ancillary Specimen Anatomical Collection Method Collection Time Receive d Time (Source) Location / / Volume Laterality Blood (Blood, 08/15/2018 6:00 AM 08/16/19 6:07 Venous) CDT AM CDT Narrative [facility] - 08/15/2018 11:25 AM CDT Specimen Information: Specimen ID: [id number] Specimen Type: Blood Specimen Collection Start Date: 08/16/19 ??6:00 AM Specimen Received Date: 08/15/2018 ??6:0 7 AM Specimen ID: [id number] Specimen Type: Blood Specimen Collection Start Date: 08/16/19 11:00 AM Specimen Received Date: 08/15/2018 11:08 AM Vaughn Rader M.D., Ph.D. LAB BLOOD TROPONIN Performing Organization Address City/[facility] Code Phon e Number [facility] - [address] [place], [place] [address] [facility] (ABNORMAL) Troponin T, Baseline, 5th gen (08/15/2018 4:23 AM CDT) [facility] Method Time Signature Troponin T, 306 (H) <=15 ng/L 08/15/2018 [facility] Baseline, 5th 4:50 AM CDT LABORATORIES - [facility] Comment: Consider acute myocardial injur y Specimen Anatomical Collection Method Collection Time Receive d Time (Source) Location / / Volume Laterality Blood (Blood, 08/15/2018 4:23 AM 08/16/19 19 4:29 Venous) CDT AM CDT Vaughn Rader M.D., Ph.D. LAB BLOOD TROPONIN Performing Organization Address City/State/ZIP Code Phon e Number [facility] - [address] [place], [place] [address] [facility] APTT (Activated Partial Thromboplastin Time) (08/15/2018 4:04 AM CDT) athologist Signature Activated 35 25 - 37 08/15/2018 [facility] Partial sec 4:48 AM CDT LABORATORIES - [facility]rombopl [facility], [facility] Specimen Anatomical Collection Method Collection Time Receive d Time (Source) Location / / Volume Laterality Blood (Blood, 08/15/2018 4:04 AM 08/16/19 4:38 Venous) CDT AM CDT Vaughn Rader M.D., Ph.D. LAB BLOOD ADD-ON Performing Organization Address City/State/ZIP Code Phon e Number [facility] LABORATORIES - [address] [place] [phone] [facility] documented in this encounter Visit Diagnoses Diagnosis Non-ST Elevation Myocardial Infarction ( HCC) - Primary Non-ST Elevation Myocardial Infarction ( HCC) Non-ST Elevation Myocardial Infarction ( HCC) documented [...] 0815 (Given - Provider: Kody Restrepo, R.N.) 81 mg, oral, Daily, First dose [...] 0818 ( Given - Provider: Kody Restrepo R.N.)0846 (MAR Hold [...] ETED) 0439 (Given - Provider: Shade Blue RLaraN.) 3,900 Units (rounded from 3,912 Units = 60 Units/kg ? 65.2 kg Dosing weight), intravenous, Once, On 08/15/18 at 0400, For 1 dose, Initial Loading Dose, Intensity type: Moderate metoprolol succinate 24 hr tablet 12.5 mg (TOPROL-XL) 0818 (Given - Provider: Kody Resrtepo R.N.)0846 (MAR Hold - Provider: Transfer Provider, Automatic - Reason: Patient not available)1048 (MAR Unhold - Provider: Transfer Provider, Automatic) 0815 (Given - Provider: Angella ColeN.) 12.5 mg, oral, Daily, First dose on 08/15/18 at 0900, Do NOT crush or chew. pantoprazole DR tablet 40 mg (PROTONIX) 0652 (Given - Provider: Shade Blue R.N.)0846 (MAR Hold - Provider: Transfer Provider, Automatic - Reason: Patient not available)1048 (MAR Unhold - Provider: Transfer Provider, Automatic) 0815 (Given - Provider: Kody Restrepo R.N.) 40 mg, oral, Daily before breakfast, [...] R.N.)0700 (Rate/Dose Verify - Provider: Kody Restrepo RSelvin)0902 (Stopped - Provider: Herbie Brady R.N.) 0-40 [...] tablet (CANCELED) 0856 (Given - Provider: Herbie Brady, R.N.) As needed, Starting on 08/15/18 at [...] breaths/minute heparin (porcine) 1,000 unit/mL injection (CANCELED) 926 (Given - Provider: Herbie Brady R.N.) As needed, Starting on 08/15/18 at 0927, Intraprocedure (CV) iohexol 350 mg iodine/mL solution (OMNIPAQUE) (CANCELED) 947 (Given - Provider: Reji Espitia M.D.) As needed, Starting on 08/15/18 at 0948, Intraprocedure (CV) lidocaine 10 mg/mL (1 %) injection (XYLOCAINE) (CANCELED) 900 (Given - Provider: Reji Espitia M.D.) As needed, Starting on 08/15/18 at 0901, Intraprocedure (CV) midazolam (PF) injection 0.5 mg (VERSED) (COMPLETED) 08 (Given - Provider: Herbie Brady R.NLraa) 0.5 mg, intravenous, Once as needed, sed [...] with maintenance fluid. NaCl 0.9% infusion 0846 ([facility] Hold - Pro vider: Transfer Provider, Automatic - Reason: Patient not available)1048 ([facility] Unhold - Provider: Transfer Provider, Automatic) 10-250 mL/hr, intravenous, As needed, Po st Medications (Hazardous/Low Fluid Volume), Starting on 08/15/18 at 0234, Infuse at the same rate as the medication until tubing cleared of medication, then discard. NaCl 0.9% infusion (COMPLETED) 0902 (New Bag - P rovider: Herbie Brady R.N.) 20 mL/hr, intravenous, Once as needed, t o keep vein open, Starting on 08/15/18 at 0850, For 1 dose, Intraprocedure (CV) nitroglycerin in D5W 100 mcg/mL syringe (for intra-arterial use only) (CANCELED) 0946 (Given - Provider: Rodger Murrieta) As needed, Starting on 08/15/18 at 0946, Intraprocedure (CV) nitroglycerin SL tablet 0.4 mg (NITROSTAT) 0846 ([facility] Hold - Provider: Transfer Provider, Automatic - Reason: Patient not available)1048 ([facility] Unhold - Provider: Transfer [...]
--- OUTSIDE RECORDS SUMMARY | 2022-03-08 11:05 | XMS_ITS | Encounter Summary ---
:1940 Author Organization [facility] Address [address] [place] [address] Care Team Providers Name Role Phone Elsewhere, Pcp Primary Care Provider Unavailable Encounter Details Date Type Department Care Team Description 08/28/2018 [facility]ail[facility] (Primary [facility] 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
--- OUTSIDE RECORDS SUMMARY | 2022-03-08 11:05 | XMS_ITS | Encounter Summary ---
:1940 Author Organization [facility] Address [address] [place] [address] Care Team Providers Name Role Phone Silver Givens M.D., Ph.D. Primary Care Provider [phone] Reason for Visit Reason Comments Pre-op Exam 01/25/20- L total Shoulder wi th Dr. Marv Dodson in Outpatient (Routine) - Closed Specialty Diagnoses / Procedures Referred By Contact Refer red To Contact Family Medicine Diagnoses Primary Osteoarthritis Shoulder Left Marv Dodson [facility] [address] [place] [address] Referral ID Status Reason Start Date Expiration Date Visits Requ ested Visits Authorized [id number] Closed 12/15/2019 12/14/2020 1 1 Encounter Details Date Type Department Care Team Description 01/18/2020 Office Visit Department of Family Silver Givens, Preop erative Exam (Primary Dx); Rosalia Kiser M.D., Ph.D. Primary Osteoarthritis Shoulder Left; [facility], in [address] [place] [address] Osteopor osis Without Pathological Fracture; [facility] Deficiency Vitamin D; [place], [place] Atherosclerotic Heart Diseas e Of [place] Coronary Artery Without Angina Pectoris; [address] [place] [address] [address] [phone] Hyperlipidemia; [place]AL[place] [phone] Peripheral Vascular Disease (HCC); [phone] (Work) Stroke Cerebrovascular Accident Personal History; [phone] Hyperglycemia; (Fax) Gastroesophagea l Reflux Disease Without [...] left total shoulder replacement on 01/25/[address] [place] [address] Dodson for left shoulder arthritis. [...] Myocardial Infarction Of Unspecified Site ([facility]) ??? Stroke ([facility]) Past Surgical History: Procedure Laterality Date ??? [...] INTRAOCULAR LENS; Surgeon: Raymundo Muniz M.D.; Location: [facility] OR ??? MOHS SURGERY N/A 06/23/2006 >Mohs [...] file Gets together: Not on file Attends gnosticism service: Not on file Active member of [...] Vitamin D #5 Atherosclerotic Heart Disease Of [place] Coronary Artery Without Angina Pectoris #6 Hyperlipidemia [...] sults for this PM CDT Disease Of [place] procedure are in Coronary Artery Without the results Angina Pectoris section. CBC WITH Routine 01/18/2020 11:28 Atherosclerotic Heart Re sults for this DIFFERENTIAL, B AM CDT Disease Of [place] procedu re are in Coronary Artery Without the results Angina Pectoris section. BASIC METABOLIC Routine 01/18/2020 11:28 Atherosclerotic Heart Results for this PANEL, S/P AM CDT Disease Of [place] procedure are in Coronary Artery Without the results Angina Pectoris section. documented in this encounter Results ECG 12 Lead (01/18/2020 12:07 PM CDT) P athologist Signature Ventricular Rate 63 BPM MUSE ECG/Min NC Interval 182 ms MUSE QRSD Interval 86 ms MUSE QT Interval 428 ms MUSE QTC Interval 437 ms MUSE P [place] 51 degrees MUSE R [place] 1 degrees MUSE T Wave [place] 32 degrees MUSE Specimen Anatomical Collection Method [...] occurred Reviewed by DARRELL Yu Silver Givens M.D., Ph.D. ECG ORDERABLES Performing Organization Address City/State/ZIP Code Phon e Number MUSE MUSE NA Basic Metabolic Panel (01/18/2020 11:28 AM CDT) P athologist Signature Potassium, P 4.5 3.6 [...] CNFL Nitrogen), P mg/dL 11:49 AM CDT Creatinine 1.12 0.74 - 01/18/2020 CN[facility] 1.35 mg/dL 11:49 AM CDT eGFR-Black/Afric 72 >=60 01/18/2020 [facility] an [place] mL/min/BSA 11:49 AM CDT Comment: ----ADDITIONAL INFORMATION---- [...] AM CDT 11:30 AM CDT Silver Givens M.D., Ph.D. LAB BLOOD ADD-ON Performing Organization Address City/State/ZIP Code Phon e Number [address] [address] [place] [address] System [address] CBC with Differential, Blood (01/18/2020 11:28 AM CDT) athologist Signature Hemoglobin 15.8 13.2 - 01/18/2020 [...] AM CDT 11:30 AM CDT Silver Givens M.D., Ph.D. LAB BLOOD ADD-ON Performing Organization Address City/State/ZIP Code Phon e Number [facility]- [address] [place] [address] [place] [address] System [address] documented in this encounter Visit Diagnoses Diagnosis Preoperative Exam - Primary Primary Osteoarthritis Shoulder Left Osteoporosis Without Pathological Fractu re Deficiency Vitamin D Atherosclerotic Heart Disease Of [place] Coronary Artery Without Angina Pectoris Hyperlipidemia Peripheral Vascular Disease (HCC) Stroke Cerebrovascular Accident Personal History Hyperglycemia Gastroesophageal Reflux Disease Without Esophagitis Loss Hearing Bilateral documented in this encounter Additional Health Concerns Assessment Noted Time PHQ-9 Depression Total Score: 2 03/08/2015 11:16 AM CS T documented as of this encounter Care Teams Zoogler Relationship Specialty Start Date End Date Silver Givens M.D., Ph.D. PCP - General Family Medicine 11/10/19 12/09/21 documented as of this encounter
--- OUTSIDE RECORDS SUMMARY | 2022-03-08 11:05 | XMS_ITS | Encounter Summary ---
:1940 Author Organization [facility] Address [address] [place] [address] Care Team Providers Name Role Phone Unavailable Primary Care Provider Unavailable Reason for Visit Reason Comments Nausea Pt presents with nausea, gen eralized weakness and new confusion per family. Encounter Details Date Type Department Care Team Description 08/14/2018 - Emergency [place] Edgar Dodson Non-ST Iraida vation 08/15/2018 Emergency Department Titi Nunez M.D. 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 Will give pt asa 324 mg [...] CDT) P athologist Signature Source Midstream 08/15/2018 [facility] 12:16 AM [facility] Clarity Clear Clear 08/15/2018 [facility] 12:16 AM [facility] Color Yellow 08/15/2018 [facility] 12:16 AM [facility] Comment: ----REFERENCE VALUE---- Colorless Yellow Isabel Blood Negative Negative 08/15/2018 12:16 AM [place] [employer] [facility] [facility] Nitrite Negative Negative 08/15/2018 12:16 AM [place] [facility] [facility] Leukocyte Esterase Moderate (A) Negative 08/15/2018 12:1 6 AM [facility] Protein 30 (A) mg/dL 08/15/2018 12:16 AM [facility] [employer] [facility] Comment: ----REFERENCE VALUE---- Negative Trace Glucose Negative Negative mg/dL 08/15/2018 12:16 AM [facility] Ketones, QI(U) 15 (A) Negative mg/dL 08/15/2018 12:16 AM [facility] Bilirubin Negative Negative 08/15/2018 12:16 AM [facility] [place] 2[facility] LAB pH 6.0 5.0 - 8.0 08/15/2018 12:17 AM [facility] [place] 2[facility] LAB Specific [place] 1.020 1.001 - 1.035 08/15/2018 12:17 AM [facility] Urobilinogen 0.2 0.2 - 1.0 mg/dL 08/15/2018 12:17 AM [facility] White Blood Cells 21-30 (A) /hpf 08/15/2018 12:55 AM [facility] Comment: ----REFERENCE VALUE---- Males: 0-3 Females: 0-10 Unknown: 0-10 Red Blood Cells 3-10 (A) 0 - 2 /hpf 08/15/2018 12:55 [facility] Dysmorphic Red Blood <=25 <=25 % 08/15/2018 12:55 [facility] Cells [facility] Hyaline Casts 1-3 /lpf 08/15/2018 12:55 [facility] Crystals Amorphous (A) None Seen 08/15/2018 12:55 [facility] /lpf [facility] Squamous Cells Occ-3 /hpf 08/15/2018 12:55 [facility] Transitional Cells Occ-3 (A) None Seen 08/15/2018 12:55 [facility] /[facility] Specimen (Source) Anatomical Collection Method Collection Time Re ceived Time Location / / Volume Laterality Urine (Urine, 08/15/2018 08/15/2018 12: 13 Clean Catch) [facility] Edgar Dodson Jr., M.D. LAB URINE ORDERABLES Performing Organization Address City/State/ZIP Code Phon e Number [facility]- [id number] [place] [address] [facility] DX Chest Portable 1 View (08/14/2018 [...] DX CHEST PORTABLE 1 VIEW Procedure Note Lavren Lang M.D. - 08/15/2018Form atting of this note might be different from the original. EXAM: DX CHEST PORTABLE 1 VIEW IMPRESSION: Trace right pleural effusion or thickening. Remainder unchanged from 04/01/2017. No focal consolidation. Hear t size and pulmonary vascularity within normal limits. Aortic calcification. Rig ht shoulder arthroplasty. Old left rib fracture. Edgar Dodson Jr., M.D. IMG DIAGNOSTIC IMAGING [facility] CRP (C-Reactive Protein) (08/14/2018 10:34 PM CDT) athologist Signature C-Reactive 0.9 <=8.0 mg/L 08/14/2018 [facility] Protein (CRP), 11:05 PM CDT [facility] [place] [facility] Specimen Anatomical Collection Method Collection Time Receive d Time (Source) Location / / Volume Laterality Blood (Blood, 08/14/2018 10:34 08/14/2018 Venous) PM CDT 10:37 PM CDT Edgar Dodson Jr., M.D. LAB BLOOD ADD-ON Performing Organization Address City/State/ZIP Code Phon e Number [facility]- [address] [place] [address] [place] [address] [facility] APTT (Activated Partial Thromboplastin Time) (08/14/2018 10:33 PM CDT) athologist Signature APTT, P 27.4 23.7 - 36.1 08/14/2018 [facility] sec 11:54 PM CDT [facility] Specimen Anatomical Collection Method Collection Time Receive d Time (Source) Location / / Volume Laterality Blood (Blood, 08/14/2018 10:33 08/14/2018 Venous) PM CDT 11:45 PM CDT Edgar Dodson Jr., M.D. LAB BLOOD ADD-ON Performing Organization Address [facility] Phon e Number [address] [address] [place] [facility] Lipase (08/14/2018 10:33 PM CDT) athologist Signature Lipase, P 31 13 - 60 U/L 08/14/2018 [facility] 11:04 PM CDT [facility] Specimen Anatomical Collection Method Collection Time Receive d Time (Source) Location / / Volume Laterality Blood (Blood, 08/14/2018 10:33 08/14/2018 Venous) PM CDT 10:37 PM CDT Edgar Dodson Jr., M.D. LAB BLOOD ADD-ON Performing Organization Address [facility] Phon e Number [address] [address] [place] [facility] Methylmalonic Acid (MMA), Quantitative (08/14/2018 10:33 PM CDT) [facility] gist Method Time Signature Methylmalonic 0.19 <=0.40 08/18/2018 [facility] Acid, QN, S nmol/mL 8:13 AM CDT [facility] Comment: ----ADDITIONAL INFORMATION---- This test was developed and its performa nce characteristics determined by [facility] in a manner consistent with CLIA requirements. This test has not been cleared or approved by the [place] d and Drug Administration. Specimen Anatomical Collection Method Collection Time Receive d Time (Source) Location / / Volume Laterality Blood (Blood, 08/14/2018 10:33 08/16/2018 Venous) PM CDT 11:50 AM CDT Edgar Dodson Jr., M.D. LAB BLOOD ADD-ON Performing Organization Address [facility]/State/ZIP Code Phon e Number [facility]ATORIES - [address] [place], [place] [address] [facility] Vitamin B12 Assay (08/14/2018 10:33 PM CDT) athologist Signature Vitamin B12 921 395 - 5541 08/15/2018 [facility] Assay, S ng/L 2:49 PM CDT [facility] Comment: Biotin has been identified [...] M.D. LAB BLOOD ADD-ON Performing Organization Address City/[facility] Code Phon e Number [facility] [address] [facility] [address] [facility] (ABNORMAL) Troponin T, 5th Generation (08/14/2018 10:33 PM CDT) athologist Signature Troponin T, 222 (H) <=15 ng/L 08/14/2018 [facility] 5th gen 10:56 PM CDT [facility] Comment: Consider acute myocardial injury Biotin [...] Organization Address City/State/ZIP Code Phon e Number [address] [address] [place] [facility] Thyroid Function [place] (08/14/2018 10:33 PM CDT) athologist Signature TSH, Sensitive 1.9 0.3 - 4.2 08/14/2018 [facility] mIU/L 11:07 PM CDT [facility] Comment: Biotin has been identified [...] M.D. LAB BLOOD ADD-ON Performing Organization Address City/State/[facility] Code Phon e Number [address] [address] [place] [facility] (ABNORMAL) Comprehensive Metabolic Panel (08/14/2018 10:33 PM CDT) athologist Signature Potassium, P 4.1 3.6 - 5.2 08/14/2018 [facility] mmol/L 11:04 PM CDT [facility] Sodium, P 139 135 - 145 08/14/2018 [facility] mmol/L 11:04 PM CDT [facility] Chloride, P 98 98 - 107 08/14/2018 [facility] mmol/L 11:04 PM CDT [facility] Bicarbonate, P 26 22 - 29 08/14/2018 [facility] mmol/L 11:04 PM CDT [facility] Anion Gap, P 15 7 - 15 08/14/2018 [facility] 11:04 PM CDT [facility] BUN (Blood Urea 15 8 - 24 08/14/2018 [facility] Nitrogen), P mg/dL 11:04 PM CDT [facility] Creatinine 1.07 0.74 - 08/14/2018 [facility] 1.35 mg/dL 11:04 PM [facility] eGFR-Black/Afri 77 >=60 08/14/2018 [facility] can Polish mL/min/BSA 11:04 PM [facility] Comment: ----ADDITIONAL INFORMATION---- Estimated GFR calculated using the 2009 CKD_EPI creatinine equation. eGFR Non-Black/ 67 >=60 mL/min/BSA 08/14/2018 11:04 PM [facility] Polish [facility] Comment: ----ADDITIONAL INFORMATION---- Estimated GFR calculated using the 2009 CKD_EPI creatinine equation. Calcium, Total, P 10.2 8.8 - 10.2 08/14/2018 11:04 PM [facility] mg/dL [facility] Glucose, P 120 70 - 140 mg/dL 08/14/2018 11:04 PM [facility] Protein, Total, P 8.0 (H) 6.3 - 7.9 g/dL 08/14/2018 11:04 PM [facility] Albumin, P 4.9 3.5 - 5.0 g/dL 08/14/2018 11:04 PM [facility] Aspartate 54 (H) 8 - 48 U/L 08/14/2018 11:04 PM [facility] IC Aminotransferase (AST), P [facility] Alkaline Phosphatase, P 173 (H) 40 - 129 U/L 08/14/2018 11 :04 PM [facility] Alanine Aminotransferase 29 7 - 55 U/L 08/14/2018 11: 04 PM [facility] (ALT), P [facility] Bilirubin, Total, P 1.7 (H) <=1.2 mg/dL 08/14/2018 11:04 P M [facility] Specimen Anatomical Collection Method Collection Time Receive d Time (Source) Location / / Volume Laterality Blood (Blood, 08/14/2018 10:33 08/14/2018 Venous) PM CDT 10:37 PM CDT Hernández V. [place] Jr., M.D. LAB BLOOD ADD-ON Performing Organization Address City/State/ZIP Code Phon e Number [facility]- [address] [address] [place] [facility] (ABNORMAL) CBC with Differential, Blood (08/14/2018 10:33 PM CDT) [facility] Method Time Signature Hemoglobin 15.8 13.2 - 08/14/2018 [facility] 16.6 g/dL 10:43 PM CDT [facility] Hematocrit 46.1 38.3 - 08/14/2018 [facility] 48.6 % 10:43 PM CDT [facility] Erythrocytes 5.19 4.35 - 08/14/2018 [facility] 5.65 10:43 PM CDT HEALTH x10(12)/L [facility] MCV 88.8 78.2 - 08/14/2018 [facility] 97.9 fL 10:43 PM CDT [facility] RBC Distrib Width 13.8 11.8 - 08/14/2018 [facility] 14.5 % 10:43 PM CDT [facility] Platelet Count 218 135 - 317 08/14/2018 [facility] x10(9)/L 10:43 PM CDT [facility] Leukocytes 8.6 3.4 - 9.6 08/14/2018 [facility] x10(9)/L 10:43 PM CDT [facility] Neutrophils 7.44 (H) 1.56 - 08/14/2018 [facility] 6.45 10:43 PM CDT HEALTH x10(9)/L [facility] Lymphocytes 0.88 (L) 0.95 - 08/14/2018 [facility] 3.07 10:43 PM CDT HEALTH x10(9)/L [facility] Monocytes 0.21 (L) 0.26 - 08/14/2018 [facility] 0.81 10:43 PM CDT [facility]ALTH x10(9)/L [facility] Eosinophils 0.02 (L) 0.03 - 08/14/2018 [facility] 0.48 10:43 PM CDT [facility]ALTH x10(9)/L [facility] Basophils 0.01 0.01 - 08/14/2018 [facility] 0.08 10:43 PM CDT HEALTH x10(9)/L SYSTEM- [place] [facility] Specimen Anatomical Collection Method Collection Time Receive d Time (Source) Location / / Volume Laterality Blood (Blood, 08/14/2018 10:33 08/14/2018 Venous) PM CDT 10:37 PM CDT Edgar Dodson Jr., M.D. LAB BLOOD ADD-ON Performing Organization Address City/State/ZIP Code Phon e Number [facility]- [address] [address] [place] [facility] [address] Head without IV Contrast (08/14/2018 [...] th temporomandibular joints. vRad: ??Findings concordant with ivan tripp vRad report. Procedure Note Lavern Lang M.D. - [...] Signature Ventricular Rate 63 BPM MUSE ECG/Min ID Interval 174 ms MUSE QRSD Interval 84 ms MUSE QT Interval 438 ms MUSE QTC Interval 448 ms MUSE P [place] 47 degrees MUSE R [place] -2 degrees MUSE T Wave [place] 54 degrees MUSE Specimen Anatomical Collection Method [...] - Provider: Katia Virk R.N. - Comment: [id number]) 0-40 Units/kg/hr ? 66.1 kg Dosing weight [...]
--- OUTSIDE RECORDS SUMMARY | 2022-03-08 11:05 | XMS_ITS | Encounter Summary ---
:1940 Author Organization [facility] Address [address] [place] [address] Care Team Providers Name Role Phone Elsewhere, Pcp Primary Care Provider Unavailable Reason for Referral Outpatient (Routine) - Closed Specialty Diagnoses / Procedures Referred By Contact Yeimi pemberton To Contact Diagnoses Bursitis Subacromial Left Marv Dodson M.D. [facility] Region Procedures gwb-bpxo-guiwcxbt-elbow arthrocentesis: L subacromial bursa [address] [place] [address] Referral ID Status Reason Start Date Expiration Date Visits Requ ested Visits Authorized [id number] Closed 03/01/2019 02/29/2020 1 1 Reason for Visit Appointment Request (Routine) - Closed Specialty Diagnoses / Procedures Referred By Contact Yeimi pemberton To Contact Orthopedic Surgery Referral ID Status Reason Start Date Expiration Date Visits Requ ested Visits Authorized [id number] Closed 01/26/2019 01/26/2020 1 Encounter Details Date Type Department Care Team Description 03/01/2019 Office Visit Department of Marv Dodson Bursitis Subacromial Orthopedic Surgery in [place] (Primary Dx) [place], [place] [address] [place] [phone] Social History Tobacco Use Types Packs/Day Years [...] M.D. - 03/01/2019 9:30 AM CDTAssociated Order(s): kvi-fqun-svbvtrud-elbow arthrocentesis: L subacromial bursa Post-Procedure Diagnose(s): Bursitis [...] Name Priority Date/Time Associated Diagnosis Comme nts [place] ARTHCS ASP/INJ Routine 03/01/2019 9:30 AM Bursitis Subacrom ial Results for this MJR JT WO US CDT Left procedure are i n the results section. documented in this encounter Results [place] ARTHCS ASP/INJ MJR JT WO US (03/01/2019 [...] documented as of this encounter Care Teams Wound Specialist Relationship Specialty Start Date End Date Elsewhere, Pcp PCP - General Internal Medicine 08/17/18 11/09/19 documented as of this encounter
--- OUTSIDE RECORDS SUMMARY | 2022-03-08 11:05 | XMS_ITS | Encounter Summary ---
:1940 Author Organization [facility] Address [address] [place] [address] Care Team Providers Name Role Phone Elsewhere, Pcp Primary Care Provider Unavailable Reason for Visit Reason Comments Pain Outpatient (Routine) - Closed Specialty Diagnoses / Procedures Referred By Contact Refer red To Contact Orthopedic Surgery Diagnoses Tear Rotator Cuff Complete Non Trauma Left Laila Loco, [facility] [address] [place], [place] [address] Referral ID Status Reason Start Date Expiration Date Visits Requ ested Visits Authorized [id number] Closed 08/24/2018 08/24/2019 1 1 Encounter Details Date Type Department Care Team Description 08/27/2018 Comprehensive Visit Department of [place], Tear Ro tator Cuff Orthopedic Surgery [place] Complete Non Trauma in [address] Left [address] [address] [place], [place] [phone] (Work) [phone] Social History Tobacco Use Types Packs/Day Years [...] Tear Rotator Cuff Complete Non Trauma Left Tln-hcxy-iahbndoh-elbow arthrocentesis Date/Time: 08/27/2018 1:57 PM Performed by: MARV DUENAS Authorized by: MARV DUENAS Care team members present: [place] Planning Specialist utilized: addiction treatment counselor not needed Risks discussed with: patient Procedural [...] Name Priority Date/Time Associated Diagnosis Comme nts SC ARTHCS ASP/INJ Routine 08/27/2018 2:00 PM Tear Rotator Cuff Results for this MJR JT WO US CDT Complete Non Trauma procedur e are in Left the results section. documented in this encounter Results SC ARTHCS ASP/INJ MJR JT WO US (08/27/2018 2:00 PM CDT) Narrative MMODAL - 08/27/2018 2:00 PM CDT Marv Duenas M.D. ? 08/28/2018 ??8:20 AM Sui-fpgi-pwgulkxx-elbow arthrocentesis Date/Time: 08/27/2018 1:57 PM Performed by: MARV DUENAS Authorized by: MARV DUENAS Care team members present: ??[place] Planning Specialist utilized: addiction treatment counselor not ne eded ?? Risks discussed with: [...] documented as of this encounter Care Teams Studio Coordinator Relationship Specialty Start Date End Date Elsewhere, Pcp PCP - General Internal Medicine 08/17/18 11/09/19 documented as of this encounter
--- OUTSIDE RECORDS SUMMARY | 2022-03-08 11:05 | XMS_ITS | Encounter Summary ---
:1940 Author Organization [facility] Address [address] [place] [address] Care Team Providers Name Role Phone Silver Givens M.D., Ph.D. Primary Care Provider [phone] Reason for Visit Reason Comments Surgical Listing 01/25/20 left total shoulder reversal Dr Dodson Encounter Details Date Type Department Care Team Description 12/15/2019 Clinical Communication Department of [place], Tanya icaadams Listing Orthopedic Surgery [place] (01/25/20 left total in [address] Dodson ) [address] [place] [phone] Social History Tobacco Use Types Packs/Day Years [...] interview positive and should be referred tothe [facility] Nurse Line (Phone number ) and this information communicated to clinical team responsible for the operation. Sent to [facility] Nurse Triage No Patient was instructed to [...] documented as of this encounter Care Teams Box Feeder Relationship Specialty Start Date End Date Silver Givens M.D., Ph.D. PCP - General Family Medicine 11/10/19 12/09/21 documented as of this encounter
--- OUTSIDE RECORDS SUMMARY | 2022-03-08 11:05 | XMS_ITS | Encounter Summary ---
:1940 Author Organization [facility] Address [address] [place] [address] Care Team Providers Name Role Phone Unavailable Primary Care Provider Unavailable Encounter Details Date Type Department Care Team Description 08/15/2018 Surgery Division of Cardiovascular Jacques Barraza , Coronary Angiography Diseases in [facility] [address] [facility] [address] [place] [phone] Social History Tobacco Use Types Packs/Day Years [...] Case IDs Date Procedure Surgeon Location Status [id number] 08/15/18 Coronary Angiography Jacques Barraza M.D. RST [...] started on heparin drip and transferred to [facility] for further management of NSTEMI. He [...] Coy Meier. HISTORY OF PRESENT ILLNESS Mr. Vnies had an excellent night. There has been [...] exam, and recommendations by Dr. Meier. #1 Tlx-PS-qxglpwkrx myocardial infarction Mr. Vines will continue with [...] with the plan. CT CT Job ID: [id number] documented in this encounter H&P Notes Tom [...] intravenous heparin. 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 Monk and Dr. Corral. #1 Ohk-HX-dqlkiycit myocardial infarction Mr. Vines was preloaded with [...] with the plan. CT CT Job ID: [id number]/[id number] TTET Reji Espitia M.D. - 08/15/2018 8:47 [...] focal neurologic complaints. In the ED in [place], he was noted to have stable vitals [...] on heparin gtt prior to transfer to [facility]. Upon arrival, he is hemodynamically [...] focal neurologic complaints. In the ED in [place], he was noted to have stable vitals [...] on heparin gtt prior to transfer to [facility]. Upon arrival, he is hemodynamically [...] ED physician spoke with Dr. Calderon at [facility] for recommendations and was suggested to treat his NSTEMI with aspirin 324 mg oral, Plavix 300 mg oral, and start a heparin bolus and drip. The was then transferred to [facility] via ambulance for further management of [...] Summary: Education complete. Pt will d/c to [facility]. No further questions CARDIOVASCULAR - ADULT ??? [...] Implant Name Type Inv. Item Serial No. Milling Planer Operator Lot No. LRB No. Used Action STNT SYNERGY SHAHAB [id number] - [id number] Cardiac Stent STNT SYNERGY SHAHAB [id number] [employer] [id number] N/A 1 Implanted Antiplatelet regimen: Aspirin 81 [...] Jung Castro M.D., M.P.H. Interventional and Structural Compliance Field Technician [facility] 08/15/18 9:53 AM documented in this [...] started on heparin drip and transferred to [facility] for further management of NSTEMI. He [...] Basic Metabolic Panel (08/16/2018 7:44 AM CDT) [facility] Method Time Signature Potassium, S 4.2 3.6 - 5.2 08/16/2018 [facility] mmol/L 8:51 AM CDT LABORATORIES - [facility] Sodium, S 141 135 - 145 08/16/2018 [facility] mmol/L 8:51 AM CDT [facility] - [facility] Chloride, S 102 98 - 107 08/16/2018 [facility] mmol/L 8:[address] [facility] Bicarbonate, S 23 22 - 29 08/16/2018 [facility] mmol/L 8:[address] [facility] Anion Gap 16 (H) 7 - 15 08/16/2018 [facility] 8:[address] [facility] BUN (Blood Urea 16 8 - 24 08/16/2018 [facility] Nitrogen), S mg/dL 8:51 AM CDT [facility] Creatinine 1.18 0.74 - 08/16/2018 [facility] 1.35 mg/dL 8:[address] [facility] eGFR-Non 59 (L) >=60 08/16/2018 [facility] Black/ mL/min/BSA 8:51 AM CDT LABORATORIES [facility] Comment: ----ADDITIONAL INFORMATION---- Estimated GFR calculated using the 2009 CKD_EPI creatinine equation. eGFR-Black/ 68 >=60 mL/min/BSA 08/16/2018 8:51 [facility] Comment: ----ADDITIONAL INFORMATION---- Estimated GFR calculated using the 2009 CKD_EPI creatinine equation. Calcium, Total, S 9.5 8.8 - 10.2 mg/dL 08/16/2018 8:51 AM [facility] Glucose, S 100 70 - 140 mg/dL 08/16/2018 8:51 AM [facility] S Specimen Anatomical Collection Method Collection Time Receive d Time (Source) Location / / Volume Laterality Blood (Blood, 08/16/2018 7:44 AM 08/17/19 19 8:16 Venous) CDT AM CDT Tom Jhonson M.D., Ph.D. LAB BLOOD ADD-ON Performing Organization Address City/State/ZIP Code Phon e Number [facility] - [address] [place], [place] [address] [facility] CBC with Differential, Blood (08/16/2018 7:44 AM CDT) [facility] gist Method Time Signature Hemoglobin 15.2 13.2 - 08/16/2018 [facility] 16.6 g/dL 8:[address] [facility] Hematocrit 44.7 38.3 - 08/16/2018 [facility] 48.6 % 8:21 AM CDT [facility] - [facility] Erythrocytes 4.99 4.35 - 08/16/2018 [facility] 5.65 8:21 AM CDT LABORATORIES - x10(12)/L [facility] MCV 89.6 78.2 - 08/16/2018 [facility] 97.9 fL 8:21 AM CDT [facility] - [facility] RBC Distrib Width 14.1 11.8 - 08/16/2018 [facility] 14.5 % 8:21 AM CDT [facility] - [facility] Platelet Count 231 135 - 317 08/16/2018 [facility] x10(9)/L 8:21 AM CDT [facility] - [facility] Leukocytes 8.1 3.4 - 9.6 08/16/2018 [facility] x10(9)/L 8:21 AM CDT [facility] - [facility] Neutrophils 5.20 1.56 - 08/16/2018 [facility] 6.45 8:21 AM CDT LABORATORIES - x10(9)/L [facility] Lymphocytes 2.03 0.95 - 08/16/2018 [facility] 3.07 8:21 AM CDT LABORATORIES - x10(9)/L [facility] Monocytes 0.60 0.26 - 08/16/2018 [facility] 0.81 8:21 AM CDT LABORATORIES - x10(9)/L [facility] Eosinophils 0.20 0.03 - 08/16/2018 [facility] 0.48 8:21 AM CDT LABORATORIES - x10(9)/L [facility] Basophils 0.04 0.01 - 08/16/2018 [facility] 0.08 8:21 AM CDT LABORATORIES - x10(9)/L [facility] Specimen Anatomical Collection Method Collection Time Receive d Time (Source) Location / / Volume Laterality Blood (Blood, 08/16/2018 7:44 AM 08/17/19 19 8:16 Venous) CDT AM CDT Tom Johsnon M.D., Ph.D. LAB BLOOD ADD-ON Performing Organization Address City/State/ZIP Code Phon e Number [facility] LABORATORIES - [address] [place], [place] [address] [facility] (ABNORMAL) Troponin T, 6H, 5th Gen (08/15/2018 12:37 PM CDT) Patholo gist Method Time Signature Troponin T, 6 433 (H) <=15 ng/L 08/15/2018 [facility] hr, 5th gen 1:09 PM CDT [facility] Comment: Consider acute myocardial injur y 6H Delta 127 ng/L 08/15/2018 1:09 PM CDT [facility] 6H Delta Interp Changing 08/15/2018 1:09 PM CDT [facility] Comment: Evaluate for acute myocardial i njury Specimen Anatomical Collection Method Collection Time Receive d Time (Source) Location / / Volume Laterality Blood 08/15/2018 12:37 08/15/2018 PM CDT 12:43 PM CDT Darvin Corral M.D. LAB BLOOD TROPONIN Performing Organization Address City/[facility] Code Phon e Number [facility] - [address] Heparin Anti-Xa Assay (08/15/2018 11:00 AM CDT) P athologist Signature Heparin 1.62 IU/mL 08/15/2018 [facility] Anti-Xa, P 12:[address] [facility] Comment: UFH therapeutic range: ?? 0.30-0.70 [...] LAB BLOOD NON ADD-ON Performing Organization Address City/[facility] Code Phon e Number [facility] LABORATORIES - [address] CORONARY ANGIOGRAPHY, STENT PLACEMENT, PERCUTANEOUS CORONARY [...] ST Clotting Time, sec 9:41 AM CDT [facility] POCT INPATIENT LABS Specimen Anatomical Collection Method Collection Time Receive d Time (Source) Location / / Volume Laterality Blood 08/15/2018 9:35 AM 9 9:41 CDT AM CDT Unknown Provider LAB POCT ORDERABLES - DEVICE Performing Organization Address City/[facility]/ZIP Code Phon e Number POC R[facility] INPATIENT LABS 200 [facility] [place] [address] [address] (ABNORMAL) ACT (Activated Clotting Time), POCT (08/15/2018 9:14 AM CDT) P athologist Signature Activated 168 (H) 84 - 139 08/15/[address] Clotting Time, sec 9:18 AM CDT [facility] POCT INPATIENT LABS Specimen Anatomical Collection Method Collection Time Receive d Time (Source) Location / / Volume Laterality Blood 08/15/2018 9:14 AM 9 9:18 CDT AM CDT Unknown Provider LAB POCT ORDERABLES - DEVICE Performing Organization Address City/[facility]/ZIP Code Phon e Number POC RST [facility] INPATIENT LABS [address] [facility] [address] [facility] [address] [address] Bilirubin, Direct (08/15/2018 6:00 AM CDT) P athologist Signature Bilirubin, 0.2 0.0 - 0.3 08/15/2018 [facility] Direct, S mg/dL 8:[address] [facility] Specimen Anatomical Collection Method Collection Time Receive d Time (Source) Location / / Volume Laterality Blood (Blood, 08/15/2018 6:00 AM 08/16/19 19 6:20 Venous) CDT AM CDT Vaughn Rader M.D., Ph.D. LAB BLOOD ADD-ON Performing Organization Address City/State/ZIP Code Phon e Number [facility] - [address] [place], [place] [address] [facility] (ABNORMAL) Comprehensive Metabolic Panel (08/15/2018 6:00 AM CDT) [facility] Method Time Signature Potassium, S 4.5 3.6 - 5.2 08/15/2018 [facility] mmol/L 8:[address] [facility] Sodium, S 144 135 - 145 08/15/2018 [facility] mmol/L 8:[address] [facility] Chloride, S 102 98 - 107 08/15/2018 [facility] mmol/L 8:[address] [facility] Bicarbonate, S 24 22 - 29 08/15/2018 [facility] mmol/L 8:[address] [facility] Anion Gap 18 (H) 7 - 15 08/15/2018 [facility] 8:[address] [facility] BUN (Blood Urea 14 8 - 24 08/15/2018 [facility] Nitrogen), S mg/dL 8:[address] [facility] Creatinine 1.14 0.74 - 08/15/2018 [facility] 1.35 mg/dL 8:[address] [facility] eGFR-Non 62 >=60 08/15/2018 [facility] Black/ mL/min/BSA 8:25 AM CDT LABORATORIES [facility] Comment: ----ADDITIONAL INFORMATION---- Estimated GFR calculated using the 2009 CKD_EPI creatinine equation. eGFR-Black/ 71 >=60 mL/min/BSA 08/15/2018 8:25 [facility] [place] CDT [facility]ATOR[facility] Comment: ----ADDITIONAL INFORMATION---- Estimated GFR calculated using the 2009 CKD_EPI creatinine equation. Calcium, Total, S 9.6 8.8 - 10.2 08/15/2018 8:25 [facility] mg/dL AM CDT [facility] Glucose, S 102 70 - 140 08/15/2018 8:25 [facility] mg/dL AM CDT [facility] Protein, Total, S 6.4 6.3 - 7.9 08/15/2018 8:25 [facility] g/dL AM CDT [facility] Albumin, S 4.3 3.5 - 5.0 08/15/2018 8:25 [facility] g/dL AM CDT [facility] Aspartate 62 (H) 8 - 48 U/L 08/15/2018 8:25 [facility] Aminotransferase (AST), AM CDT LABORA TORIES - S [facility] Alkaline Phosphatase, S 142 (H) 40 - 129 U/L 08/15/2018 8: 25 [facility] AM CDT [facility] Alanine Aminotransferase 25 7 - 55 U/L 08/15/2018 8:2 5 [facility] (ALT), S AM CDT [facility] Bilirubin, Total, S 1.2 <=1.2 mg/dL 08/15/2018 8:25 [facility] AM CDT [facility] Specimen Anatomical Collection Method Collection Time Receive d Time (Source) Location / / Volume Laterality Blood (Blood, 08/15/2018 6:00 AM 08/16/19 19 6:20 Venous) CDT AM CDT Vaughn Rader M.D., Ph.D. LAB BLOOD ADD-ON Performing Organization Address City/State/ZIP Code Phon e Number [facility] - [address] [place], [place] [address] [facility] (ABNORMAL) Troponin T, 2H/6H, 5th Gen (08/15/2018 6:00 AM CDT) [facility] Method Time Signature Troponin T, 2 366 (H) <=15 ng/L 08/15/2018 [facility] hr, 5th gen 6:38 AM CDT [facility] Comment: Consider acute myocardial injur y 2H Delta 60 ng/L 08/15/2018 6:38 AM CDT [facility] 2H Delta Interp Changing 08/15/2018 6:38 AM CDT [facility] Comment: Evaluate for acute myocardial i njury Troponin T, 6 hr, 5th CANCELED ng/L 08/15/2018 11: 23 AM [facility] LABORATORIES gen CDT - [facility] Comment: Hemolyzed redraw requested Result canceled by the ancillary Specimen Anatomical Collection Method Collection Time Receive d Time (Source) Location / / Volume Laterality Blood (Blood, 08/15/2018 6:00 AM 08/16/19 19 6:07 Venous) CDT AM CDT Narrative [facility] - [facility] - 08/15/2018 11:25 AM CDT Specimen Information: Specimen ID: [id number] Specimen Type: Blood Specimen Collection Start Date: 08/16/19 ??6:00 AM Specimen Received Date: 08/15/2018 ??6:0 7 AM Specimen ID: [id number] Specimen Type: Blood Specimen Collection Start Date: 08/16/19 11:00 AM Specimen Received Date: 08/15/2018 11:08 AM Vaughn Rader M.D., Ph.D. LAB BLOOD TROPONIN Performing Organization Address City/State/ZIP Code Phon e Number [facility] LABORATORIES - [address] (ABNORMAL) Troponin T, Baseline, 5th gen (08/15/2018 4:23 AM CDT) [facility] Method Time Signature Troponin T, 306 (H) <=15 ng/L 08/15/2018 [facility] Baseline, 5th 4:50 AM CDT LABORATORIES - gen [facility] Comment: Consider acute myocardial injur y Specimen Anatomical Collection Method Collection Time Receive d Time (Source) Location / / Volume Laterality Blood (Blood, 08/15/2018 4:23 AM 08/16/19 19 4:29 Venous) CDT AM CDT Vaughn Rader M.D., Ph.D. LAB BLOOD TROPONIN Performing Organization Address City/State/ZIP Code Phon e Number [facility] [employer] - [address] APTT (Activated Partial Thromboplastin Time) (08/15/2018 4:04 AM CDT) P athologist Signature Activated 35 25 - 37 08/15/2018 [facility] Partial sec 4:48 AM CDT LABORATORIES - [facility] Time, P C[facility] Specimen Anatomical Collection Method Collection Time Receive d Time (Source) Location / / Volume Laterality Blood (Blood, 08/15/2018 4:04 AM 08/16/19 4:38 Venous) CDT AM CDT Vaughn Rader M.D., Ph.D. LAB BLOOD ADD-ON Performing Organization Address City/State/ZIP Code Phon e Number [facility] LABORATORIES - [address] [place], [place] [address] [facility] documented in this encounter Visit Diagnoses [...] Units (COMPL ETED) 0439 (Given - Provider: Angella CallawayNLara) 3,900 Units (rounded from 3,912 Units = [...]
--- OUTSIDE RECORDS SUMMARY | 2022-03-08 11:05 | XMS_ITS | Encounter Summary ---
:1940 Author Organization [facility] Address [address] [place] [address] Care Team Providers Name Role Phone Unavailable Primary Care Provider Unavailable Encounter Details Date Type Department Care Team Description 08/13/2018 Hospital Encounter Department of Laila Loco [place] [place] [place] [facility] [address] [place] [address] [address] [address] [place], [place] [phone] (Work) [phone] Social History Tobacco Use Types Packs/Day Years [...] tartrate 0 06/23/201708/15 (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
--- OUTSIDE RECORDS SUMMARY | 2022-03-08 11:05 | XMS_ITS | Encounter Summary ---
:1940 Author Organization [facility] Address [address] [place] [address] Care Team Providers Name Role Phone Elsewhere, Pcp Primary Care Provider Unavailable Reason for Referral Outpatient (Routine) - Closed Specialty Diagnoses / Procedures Referred By Contact Refer red To Contact Diagnoses Pain Shoulder Left Marv Dodson M.D. [facility] Region Procedures mob-prgi-nimbohjc-elbow arthrocentesis: L glenohumeral [address] [place] [address] Referral ID Status Reason Start Date Expiration Date Visits Requ ested Visits Authorized [id number] Closed 09/08/2019 09/07/2020 1 1 Reason for Visit Reason Comments Arthritis Pain Encounter Details Date Type Department Care Team Description 09/08/2019 Office Visit Department of Marv Dodson Pain Shou lder Left Orthopedic Surgery in M.D. (Primary Dx) [place]ricio [place] [address] [facility] [address] [place] [phone] Social History Tobacco Use Types Packs/Day Years [...] M.D. - 09/08/2019 9:15 AM CDTAssociated Order(s): hin-qrxi-byorzsjx-elbow arthrocentesis: L glenohumeral Post-Procedure Diagnose(s): Pain Shoulder [...] Diagnosis Comme nts MO ARTHCS ASP/INJ Routine 09/08/2019 9:15 AM Pain Shoulder Lef t Results for this MJR JRaj WO US CDT procedure are i n the results section. documented in this encounter Results MO ARTHCS ASP/INJ MJR JT WO US (09/08/2019 [...] documented as of this encounter Care Teams Hyster Machine Operator Relationship Specialty Start Date End Date Elsewhere, Pcp PCP - General Internal Medicine 08/17/18 11/09/19 documented as of this encounter
--- OUTSIDE RECORDS SUMMARY | 2022-03-08 11:05 | XMS_ITS | Encounter Summary ---
:1940 Author Organization [facility] Address [address] [place] [address] Care Team Providers Name Role Phone Elsewhere, Pcp Primary Care Provider Unavailable Reason for Visit Appointment Request (Routine) - Closed Specialty Diagnoses / Procedures Referred By Contact Refer red To Contact Orthopedic Surgery Referral ID Status Reason Start Date Expiration Date Visits Requ ested Visits Authorized [id number] Closed 11/10/2018 11/10/2019 1 1 Encounter Details Date Type Department Care Team Description 11/25/2018 Office Visit Department of Marv Dodson, Bursitis (Primary Dx); Orthopedic Surgery in [place] Pain Shoulder Left [address] [phone] Social History Tobacco Use Types Packs/Day Years [...] M.D. - 11/25/2018 8:45 AM CDTAssociated Order(s): dbw-pzlo-aixpchpj-elbow arthrocentesis: L subacromial bursa Post-Procedure Diagnose(s): Bursitis; [...] Name Priority Date/Time Associated Diagnosis Comme nts ME ARTHCS ASP/INJ Routine 11/25/2018 8:45 AM Bursitis Results for this MJR JT WO US CDT Pain Shoulder Left procedure are in the results section. documented in this encounter Results ME ARTHCS ASP/INJ MJR JT WO US (11/25/2018 [...] documented as of this encounter Care Teams Card Game Operator Relationship Specialty Start Date End Date Elsewhere, Pcp PCP - General Internal Medicine 08/17/18 11/09/19 documented as of this encounter
--- OUTSIDE RECORDS SUMMARY | 2022-03-08 11:06 | XMS_ITS | Encounter Summary ---
:1940 Author Organization [facility] Address [address] [place] [address] Care Team Providers Name Role Phone Unavailable Primary Care Provider Unavailable Encounter Details Date Type Department Care Team Description 07/10/2016 Hospital Encounter HX [facility] Kalyan Taveras ROO M.D. [address] [place] [phone] (wo rk) Social History Tobacco Use Types Packs/Day Years Used Date Smoking Tobacco: Former Sex Assigned at Date Recorded Not on file documented as of this encounter Last Filed Vital Signs Vital Sign Reading Time Taken Comments Blood Pressure 133/78 07/10/2016 12:09 PM BIOSTATISTICS TEACHER Pulse 61 07/10/2016 12:09 PM BIOSTATISTICS TEACHER Temperature - - Respiratory Rate 20 07/10/2016 12:09 PM BIOSTATISTICS TEACHER Oxygen Saturation - - Inhaled Oxygen Concentration - - Weight - - Height - - Body Mass Index - - documented in this encounter Discharge Summaries Britt Patterson R.N. - 07/10/2016 12:21 PM CST Hospital Discharge Instructions [address] [id number] Patient Discharge Instructions Name: RYLEY DURÁN Current Date: 07/10/2016 12:21:54 : 1940 12:00 AM [facility] Number: [id number] Patient Address: [address] [place] [id number] Patient Primary Care Provider: Name: PCP, MAKENZIE Phone: Discharge Diagnosis: [facility] in [place] would like to thank you for allowing [...] if you dont have one. Go to [email or web address] and click on Create Your Account. Then, follow the directions to complete the online form. Youll be asked for your [facility] number which you can find at the top of this document. LUIS ARMANDO Reed MARK ARNOLD , have received the attached patient education materials/instructions and haveverbalized understanding: Patient Signature Date Time Care Provider Signature Date Time 56031 Endoscopy/Colonoscopy/Flexible Sigmoidoscopy Post-Procedure Discharge Instructions Date: Sunday, [...] call your doctor or the Emergency Department ([phone])if you have any questions OR notice any [...] grain cereal with bran (Chex, Raisin Bran, Sabina Bran), oatmeal, rolled oats, granola,wheat flakes, brown [...] all kinds OTHER: Popcorn, any spices ?? [phone] Inez Olivera, [address] [place] [address], [place] [address]. All rights reserved. This information is not [...] needed, you may be told to take qxnz-zwl-ygeikmd stool softeners. To help relieve pain, antispasmodic [...] the option of having surgery with you. [place] to Colon Health Help keep your colon healthy with a diet that includes plenty of high-fiber fruits, vegetables, and whole grains. Drink plenty of liquids like water and juice. ?? [phone] Inez [facility], [address] [place] [address], [place] [address]. All rights reserved. This information is not intended as a substitute for professional medical care. Always follow your healthcare professional's instructions. This document has images extracted. Please consider using [employer] ([employer]) for all your patient education needs. Source: [facility] POWERCHART Document Id: [id number] TATISTICS TEACHER Britt Patterson R.N. - 07/10/2016 12:21 PM CST Hospital Discharge Medication List [address] [id number] Discharge Medication List Name: RYLEY DURÁN Current Date: 07/10/2016 12:21:53 : 1940 12:00 AM [facility] Number: [id number] Patient Address: [address] [place] [id number] Patient Primary Care Provider: Name: PCPMAKENZIE Phone: Discharge Diagnosis: [facility] in [place] would like to thank you for allowing [...] PINKY ORDONEZ MD Signed On:10-JUL-2016 11:26:59 Source: [facility] [employer] Document Id: [id number] TATISTICS TEACHER Britt Patterson R.N. - 07/10/2016 12:20 PM CST Discharge Summary Discharge Summary Entered On: 07/10/2016 12:21 BIOSTATISTICS TEACHER Performed On: 07/10/2016 12:20 BIOSTATISTICS TEACHER by BRITT PATTERSON RN DC Information Discharged to : Home independently, Home with family care Current Home Treatments : None Home Equipment : None Professional Skilled Services : None Special Services and Community Resources : None Mode of Discharge : Ambulatory Discharge Transportation : Private vehicle Accompanied By : Jig Grinder Set Up Operator, Family Date/Time of Discharge : 07/10/2016 12:20 BIOSTATISTICS TEACHER Add'l Discharge Comments : [facility] has been discharged [facility] - she had an errand to the airport BRITT PATTERSON RN - 07/10/2016 12:20 BIOSTATISTICS TEACHER Source: [facility] [employer] Document Id: [id number] BIOSTATISTICS TEACHER!12 TATISTICS TEACHER documented in this encounter Medications at [...] suggests that it was the tartrate formulation. covpchsshiua-jijqudnz-fad Take 1 tablet by 0 06/0608/15/2018 ifrah [...] Updated Preprocedure Checklist Entered On: 07/10/2016 10:24 BIOSTATISTICS TEACHER Performed On: 07/10/2016 10:21 BIOSTATISTICS TEACHER by MICHEAL BENNETT RN Checklist Last Fluid Intake : 07/10/2016 7:00 BIOSTATISTICS TEACHER Last Food Intake : 07/09/2016 12:00 BIOSTATISTICS TEACHER MICHEAL BENNETT RN - 07/10/2016 10:21 BIOSTATISTICS TEACHER Surgery Prep Grid Contacts/Glasses Removed : Yes Dentures Removed : NA (Comment: Full top and bottom [MICHEAL BENNETT RN - 07/10/2016 10:25 BIOSTATISTICS TEACHER] ) Hairpins/Hairpiecies Removed : NA Hearing Aid Removed : Yes (Comment: R THOMAS [MICHEAL BENNETT RN - 07/10/2016 10:25 BIOSTATISTICS TEACHER] ) Home Prep Complete : Yes Jewelry/Piercing Removed : NA Makeup/Nail Algerian Removed : NA Oral Hygiene : NA Preop Scrub AM of Surgery : NA Preop Scrub Night Prior to Surgery : NA Prosthesis Removed : NA Tampon Removed : NA Verified - No hair products used : NA Voided integration technician to procedure : Yes Wearing Patient Gown : Yes MICHEAL BENNETT RN - 07/10/2016 10:21 BIOSTATISTICS TEACHER Patient Rights Grid Blood Consent Signed : NA Surgical/Procedure Consent Signed : Yes MICHEAL BENNETT RN - 07/10/2016 10:21 BIOSTATISTICS TEACHER Family Location : , [place], going to the airport to pick someone up. Will be back to get patient. MICHEAL BENNETT RN - 07/10/2016 10:21 BIOSTATISTICS TEACHER Checklist II Patient Safety Grid Allergy Band on and Verified : NA (Comment: Patient states NKDA, side effect from statins [MICHEAL BENNETT RN - 07/10/2016 10:25 BIOSTATISTICS TEACHER] ) Anesthesia Consult : Yes Band on [...] NA MICHEAL BENNETT RN - 07/10/2016 10:21 BIOSTATISTICS TEACHER RN Who Verified Site : MICHEAL BENNETT RN Physician Who Verified Site : PINKY ORDONEZ MD, KASEY J RN - 07/10/2016 10:21 BIOSTATISTICS TEACHER SORAYA Screening Known Obstructive Sleep Apnea : No - NOT diagnosed with SORAYA SORAYA Score : No qualifying data available. SORAYA Results : No qualifying data available. MICHEAL BENNETT RN - 07/10/2016 10:21 BIOSTATISTICS TEACHER SORAYA Assessment Do you have high blood pressure or have you been told to take medication for high blood pressure? : No Frequency of Snoring : Never Frequency of Gasping, Choking, Snorting : Never Total Number of Historical Features : 0 Neck Circumference (cm) : 40/41 Total Sleep Apnea Clinical Score Calc : 3 MICHEAL BENNETT RN - 07/10/2016 10:21 BIOSTATISTICS TEACHER Valuables/Belongings Valuables/Belongings Grid Valuables at Bedside Clothes, Patient Valuables : Jacket, Pants, Shirt, Shoes, Undergarments MICHEAL BENNETT RN - 07/10/2016 10:25 BIOSTATISTICS TEACHER Room Orientation/Facility Policy Reviewed : Yes Home Medication Disposition : None brought in with patient MICHEAL BENNETT RN - 07/10/2016 10:25 BIOSTATISTICS TEACHER Education Preprocedure Education Grid Procedure Type : Colonoscopy Education Topics : Anesthesia/Sedation, Pain management, Patient rights and responsibilities, Plan of care, Tubes/Drains/IV's Individuals Taught : Patient Barriers to Learning : None evident Teaching Method : Explanation, Printed materials Teaching Evaluation : Verbalizes understanding MICHEAL BENNETT RN - 07/10/2016 10:25 BIOSTATISTICS TEACHER Preop Holding Mode of Arrival : Ambulatory Preoperative Orders Complete : Yes MICHEAL BENNETT RN - 07/10/2016 10:25 BIOSTATISTICS TEACHER Advance Directive Advanced Directives : No Advance Directive Additional Information : No MICHEAL BENNETT RN - 07/10/2016 10:25 BIOSTATISTICS TEACHER Vital Signs Temperature Core : 36.0 DegC(Converted to: 96.8 DegF) (LOW) Peripheral Pulse Rate : 67 /min Respiratory Rate : 12 /min (LOW) Systolic Blood Pressure : 135 mmHg Diastolic Blood Pressure : 86 mmHg NIBP Mean : 102 mmHg SpO2 : 96 % Oxygen Therapy : Room air MICHEAL BENNETT RN - 07/10/2016 10:25 BIOSTATISTICS TEACHER Allergy (As Of: 07/10/2016 10:26:32 BIOSTATISTICS TEACHER) Allergies (Active) statins Estimated Onset Date: Unspecified ; Reactions: myalgia ; Created By: SILVER ABDUL MD; Reaction Status: Active ; Category: Drug ; Substance: statins ; Type: Side Effect ; Updated By: SILVER ABDUL MD; Reviewed Date: 07/10/2016 10:26 BIOSTATISTICS TEACHER Source: [facility] POWERCHART Document Id: [id number] BIOSTATISTICS TEACHER!86 TATISTICS TEACHER Pinky Ordonez M.D. - 07/10/2016 12:00 AM [...] Pinky Ordonez M.D./dirk cc: Silver Abdul M.D. [facility] [place] [address] Electronically Signed By: PINKY ORDONEZ MD On: 07/16/2016 09:29 AM Source: [facility] MHSDOLBEYNONRADSYS Document Id: [id number] documented in this encounter Nursing Notes Micheal Bennett R.N. - 07/10/2016 10:26 AM CST Day Surgery Admission History/Asmt Adult Document Has Been Updated Day Surgery Admission History/Asmt Adult Entered On: 07/10/2016 10:31 BIOSTATISTICS TEACHER Performed On: 07/10/2016 10:26 BIOSTATISTICS TEACHER by MICHEAL BENNETT RN General Info Preferred Name : Ryley Admitted From : Non-Health Care Facility Point of Origin Mode of Arrival : Ambulatory Present in Room During Exam/Procedure : Spouse Preferred Communication Mode : Verbal Information Given By : Patient Languages : Tamazight Is Patient Female and 13-50 no hysterectomy : No MICHEAL BENNETT RN - 07/10/2016 10:26 BIOSTATISTICS TEACHER Allergy (As Of: 07/10/2016 10:31:05 BIOSTATISTICS TEACHER) Allergies (Active) statins Estimated Onset Date: Unspecified ; Reactions: myalgia ; Created By: SILVER ABDUL MD; Reaction Status: Active ; Category: Drug ; Substance: statins ; Type: Side Effect ; Updated By: SILVER ABDUL MD; Reviewed Date: 07/10/2016 10:26 BIOSTATISTICS TEACHER Anesth/Transfusion Anesthesia/Transfusions : Prior anesthesia reaction Anesthesia Reaction : Excessive post op nausea Transfusion Acceptable in Emergency : Yes Hoahaoism/Other Objections to Blood Transfusions : No MICHEAL BENNETT RN - 07/10/2016 10:26 BIOSTATISTICS TEACHER ID Screen Drug Resistant Organism : No MICHEAL BENNETT RN - 07/10/2016 10:26 BIOSTATISTICS TEACHER Nutrition Have you recently lost weight without trying? : No Decreased Appetite Nutrition : No Tube Feedings or Parenteral Nutrition : No MST Score : 0 Home Diet : Regular Appetite : Excellent MICHEAL BENNETT RN - 07/10/2016 10:26 BIOSTATISTICS TEACHER Home Environment Current Daily Living Assistance : None Living Situation : Home independently Home Equipment : None Sensory Deficits : None Mobility Assistance Prior to Admission : Independent Current Home Treatments : None Professional Skilled Services : None Special Services and Community Resources : None MICHEAL BENNETT RN - 07/10/2016 10:26 BIOSTATISTICS TEACHER Dependent Habits Exposure to Tobacco Smoke : Other: former Smoking Status : Former smoker Tobacco 2A : Yes Tobacco Use/Currently Using : No Tobacco Use/Last 30 Days : No Tobacco Use/Last 12 months : No MICHEAL BENNETT RN - 07/10/2016 10:26 BIOSTATISTICS TEACHER Caffeine Use Grid Caffeine Use : Current Type : Coffee Frequency : Daily MICHEAL BENNETT RN - 07/10/2016 10:26 BIOSTATISTICS TEACHER Psychosocial Adult Domestic Abuse Concerns : None Behavioral Health Screen/Safety Assmt : No Hoahaoism Preference : Christian MICHEAL BENNETT RN - 07/10/2016 10:26 BIOSTATISTICS TEACHER Advance Directive Advanced Directives : No Advance Directive Additional Information : No MICHEAL BENNETT RN - 07/10/2016 10:26 BIOSTATISTICS TEACHER Educ Needs Patient/Family Education Needs : Activity limitations/expectations, Plan of care, Safety, fall, Treatments/Procedures/Tests MICHEAL BENNETT RN - 07/10/2016 10:26 BIOSTATISTICS TEACHER Learning Style Preference Adult Grid Patient : Verbal explanation, Printed materials Family : Verbal explanation MICHEAL BENNETT RN - 07/10/2016 10:26 BIOSTATISTICS TEACHER Outpatient Assessment Procedural Respiratory : Respirations unlabored, [...] distress MICHEAL BENNETT RN - 07/10/2016 10:26 BIOSTATISTICS TEACHER Psycho/Emotional Affect/Behavior : Calm, Cooperative, Appropriate Pain Symptoms : No MICHEAL BENNETT RN - 07/10/2016 10:26 BIOSTATISTICS TEACHER Coping Grid Identifies effective strategies : Yes [...] Yes MICHEAL BENNETT RN - 07/10/2016 10:26 BIOSTATISTICS TEACHER Safety Grid Vision, Hearing, Mobility Adequate to Meet Safety Needs : Yes MICHEAL BENNETT RN - 07/10/2016 10:26 BIOSTATISTICS TEACHER Peripheral IV Peripheral IV Assess/Intervention Grid Peripheral IV #1 IV Activity : Start Number of Attempts : 1 Date of Insertion : 07/10/2016 BIOSTATISTICS TEACHER IV Site : Hand Laterality : Right Catheter Size : 20 Catheter Type : Over the needle Site Condition : No complications Dressing/ Activity : Transparent Flow/ Patency : No complications IV Equipment/Supplies : Regular Comments (Comment: Inserted by Reno Patterson RN [MICHEAL BENNETT RN - 07/10/2016 10:26 BIOSTATISTICS TEACHER] ) MICHEAL BENNETT RN - 07/10/2016 10:26 BIOSTATISTICS TEACHER Hawk Sensory Perception Hawk : No impairment Moisture Hawk : Rarely moist Activity Hawk : Walks frequently Mobility Hawk : No limitations Nutrition Hawk : Excellent Friction and Shear Hawk : No apparent problem Hawk Score : 23 MICHEAL BENNETT RN - 07/10/2016 10:26 BIOSTATISTICS TEACHER Falls Assessment Fall Injury Risk History of Falls : No Patient at Risk for Falls : No Fall Injury Risk Factors : None of the below Risk Factors Patient has increased Fall Injury Risk : No MICHEAL BENNETT RN - 07/10/2016 10:26 BIOSTATISTICS TEACHER Hendrich II Fall Risk Confusion/Disorientation Hendrich : [...] 2 MICHEAL BENNETT RN - 07/10/2016 10:26 BIOSTATISTICS TEACHER DC Needs Anticipated Discharge Date : 07/10/2016 BIOSTATISTICS TEACHER Discharge To, Anticipated : Home with family senior care Treatments, Anticipated : None Home Equipment, Anticipated : None Professional Skilled Services, Anticipated : None Special Serv & Comm Res, Anticipated : None Needs Assistance with Transportation : No Needs Assistance at Home Upon Discharge : No MICHEAL BENNETT RN - 07/10/2016 10:26 BIOSTATISTICS TEACHER Source: [facility] POWERCHART Document Id: [id number] BIOSTATISTICS TEACHER!126 TATISTICS TEACHER Micheal Bennett R.N. - 07/04/2016 4:24 PM [...] (x) No. Comment: _ Do you have tenriism or other objection to having a blood [...] at home (x) Do you have a auto parts delivery driver. Please have their telephone number (x) NPO 2 hours prior to arrival (x) Check in information (x) Be sure to have verified your scheduled procedure with your insurance company [employer] Do not drive for 24 hours after procedure. Please have a auto parts delivery driver with you to take you home. Arrange for a person to stay with you at least 5 hours after procedure. If you have any questions at any time please call . Electronically Signed By: MICHEAL BENNETT RN On: 07/09/2016 02:29 PM Modified by and Electronically Signed by: MICHEAL BENNETT RN On: 07/09/2016 02:29 PM Source: [facility] POWERCHART Document Id: [id number] TATISTICS TEACHER documented in this encounter OR Notes Op [...] APRN, CRNA On: 07/10/2016 12:45 PM Source: [employer] POWERCHART Document Id: [id number] TATISTICS TEACHER documented in this encounter Miscellaneous Notes Miscellaneous - Arleth Ryan R.N. - 07/31/2016 3:08 PM CDT Reminder Msg From: ARLETH RYAN RN To: [place] Colonoscopy Pool; Sent: 07/31/2016 15:08:06 CDT Show up: 05/05/2021 15:08:00 BIOSTATISTICS TEACHER Subject: Reminder Msg Due Date/Time: 07/03/2021 15:08:00 BIOSTATISTICS TEACHER Please Remember to: Repeat scope in 5 years. PATIENT: ( ) Call Patient ( ) Ask Patient to ( ) ( ) Call Relative ( ) Schedule Patient ( ) ( ) Call for [place] Operator ( ) Follow up on Results ( ) Other: PROVIDER: ( ) Call Physician ( ) Call Pharmacist ( ) Call Lab ( ) Other: Special Instructions: Comments: Source: [facility] [employer] Document Id: [id number] Miscellaneous - Britt Patterson, R.N. - 07/10/2016 12:20 PM CST Valuables/Belongings Valuables/Belongings Entered On: 07/10/2016 12:21 BIOSTATISTICS TEACHER Performed On: 07/10/2016 12:20 BIOSTATISTICS TEACHER by BRITT PATTERSON RN Valuables/Belongings Valuables/Belongings Grid Valuables at Bedside Clothes, Patient Valuables : Jacket, Pants, Shirt, Shoes, Undergarments BRITT PATTERSON RN - 07/10/2016 12:21 BIOSTATISTICS TEACHER Room Orientation/Facility Policy Reviewed : Yes Belongings Sent Home With : all with patient Home Medication Disposition : None brought in with patient BRITT PATTERSON RN - 07/10/2016 12:21 BIOSTATISTICS TEACHER Source: [facility] [employer] Document Id: [id number] BIOSTATISTICS TEACHER!8 TATISTICS TEACHER Miscellaneous - Cheryl, Radha Provider Ser - 07/10/2016 12:20 PM BIOSTATISTICS TEACHER Coding Summary-Paper Based CODING DATE: 07/15/2016 FINAL [place] [facility] STATUS: * Discharged to Home or Self Care PAYOR: Medicare APC DESCRIPTION 5311 Level 1 Lower GI Procedures ADMIT DX: REASON FOR VISIT DX: FINAL DX: PRINCIPAL: Z12.11 Encounter for screening for malignant neoplasm of colon SECONDARY: Z86.010 Personal history of colonic polyps K57.30 Diverticulosis of large intestine without perforation or abscess without bleeding 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 - 07/10/2016 12:09 PM CST Adult Postprocedure Assessment Adult Postprocedure Assessment Entered On: 07/10/2016 12:12 BIOSTATISTICS TEACHER Performed On: 07/10/2016 12:09 BIOSTATISTICS TEACHER by BRITT PATTERSON RN Vital Signs Temperature Core : 36.0 DegC(Converted to: 96.8 DegF) (LOW) Peripheral Pulse Rate : 61 /min Respiratory Rate : 20 /min Systolic Blood Pressure : 133 mmHg Diastolic Blood Pressure : 78 mmHg NIBP Mean : 96 mmHg SpO2 : 96 % Oxygen Therapy : Room air BRITT PATTERSON RN - 07/10/2016 11:57 BIOSTATISTICS TEACHER General Level of Consciousness : Alert Orientation : Oriented x 3 Skin Color : Normal for ethnicity Skin Description : Dry Skin Temperature : Warm Pain Symptoms : No BRITT PATTERSON RN - 07/10/2016 11:57 BIOSTATISTICS TEACHER Cardiovascular Heart Rhythm : Regular Nail Bed Color : [place] Capillary Refill : Less than 2 seconds BRITT PATTERSON RN - 07/10/2016 11:57 BIOSTATISTICS TEACHER Respiratory Respirations : Unlabored Respiratory Pattern : Regular All Lobes Breath Sounds : BRITT Dean 07/10/2016 11:57 BIOSTATISTICS TEACHER GI/ Nausea Symptoms : No BRITT PATTERSON 07/10/2016 11:57 BIOSTATISTICS TEACHER Integumentary Skin Color : Normal for ethnicity Skin Description : Dry Skin Temperature : Warm BRITT PATTERSON 07/10/2016 11:57 BIOSTATISTICS TEACHER I&O Oral Intake : 120 mL BRITT PATTERSON 07/10/2016 11:57 BIOSTATISTICS TEACHER Neurologic Swallowing Difficulty/Aspiration Risk : None Extremity Movement : Equal Facial Symmetry : Symmetric Characteristics of Speech : BRITT Dean 07/10/2016 11:57 BIOSTATISTICS TEACHER Activity Patient Position : Elevate head of bed 45 degrees Activity Status ADL : Up ad naomy Activity Assistance : Independent BRITT PATTERSON 07/10/2016 11:57 BIOSTATISTICS TEACHER PARSAP Activity Status : Moves 4 extremities [...] Score : 20 BRITT PATTERSON 07/10/2016 11:57 BIOSTATISTICS TEACHER [place] Agitation Sedation Scale (RASS) : Alert and calm RASS Score : 0 BRITT PATTERSON 07/10/2016 11:57 BIOSTATISTICS TEACHER Hawk Sensory Perception Hawk : No impairment Moisture Hawk : Rarely moist Activity Hawk : Walks frequently Mobility Hawk : No limitations Nutrition Hawk : Excellent Friction and Shear Hawk : No apparent problem Hawk Score : 23 BRITT PATTERSON 07/10/2016 11:57 BIOSTATISTICS TEACHER Falls Assessment Fall Injury Risk History of Falls : No Patient at Risk for Falls : No Fall Injury Risk Factors : None of the below Risk Factors Patient has increased Fall Injury Risk : No BRITT PATTERSON 07/10/2016 11:57 BIOSTATISTICS TEACHER Hendrich II Fall Risk Confusion/Disorientation Hendrich : [...] 1 BRITT PATTERSON RN - 07/10/2016 11:57 BIOSTATISTICS TEACHER Safe Patient Handling Safe Pt Handling Independent : Yes - No equipment needed Safe Pt Handling Equipment Rec : No Equipment Needed BRITT PATTERSON RN - 07/10/2016 11:57 BIOSTATISTICS TEACHER Education General Patient Education Power[employer] Topics : Activity limitations/expectations, Discharge instructions/Medication list, Physical limitations, Plan of care, Printed materials, Safety, fall, When to call health care provider Individuals Taught : Patient Barriers to Learning : None evident Teaching Method : Explanation Teaching Evaluation : Verbalizes understanding BRITT PATTERSON RN - 07/10/2016 11:57 BIOSTATISTICS TEACHER [facility] Kingdom[facility] Document Id: [id number] BIOSTATISTICS TEACHER!91 TATISTICS TEACHER Miscellaneous - Britt Patterson RSelvin - 07/10/2016 11:48 AM CST Adult Postprocedure Assessment Adult Postprocedure Assessment Entered On: 07/10/2016 11:51 BIOSTATISTICS TEACHER Performed On: 07/10/2016 11:48 BIOSTATISTICS TEACHER by BRITT PATTERSON RN Vital Signs Peripheral Pulse Rate : 66 /min Respiratory Rate : 20 /min Systolic Blood Pressure : 139 mmHg Diastolic Blood Pressure : 79 mmHg NIBP Mean : 99 mmHg SpO2 : 97 % Oxygen Therapy : Room air BRITT PATTERSON RN - 07/10/2016 11:48 BIOSTATISTICS TEACHER General Level of Consciousness : Alert Orientation : Oriented x 3 Skin Color : Normal for ethnicity Skin Description : Dry Skin Temperature : Warm Pain Symptoms : No BRITT PATTERSON RN - 07/10/2016 11:48 BIOSTATISTICS TEACHER Cardiovascular Heart Rhythm : Regular Nail Bed Color : [place] Capillary Refill : Less than 2 seconds BRITT PATTERSON RN - 07/10/2016 11:48 BIOSTATISTICS TEACHER Respiratory Respiratory Patient Stated Symptoms : None Respirations : Unlabored Distress : None Respiratory Pattern : Regular Cough and Deep Breathe : Done Cough : None BRITT PATTERSON RN - 07/10/2016 11:48 BIOSTATISTICS TEACHER GI/ Nausea Symptoms : No BRITT PATTERSON RN - 07/10/2016 11:48 BIOSTATISTICS TEACHER Integumentary Skin Color : Normal for ethnicity Skin Description : Dry Skin Temperature : Warm BRITT PATTERSON 07/10/2016 11:48 BIOSTATISTICS TEACHER Peripheral IV Peripheral IV Assess/Intervention Grid Peripheral IV #1 IV Activity : Discontinue Removal : Catheter intact, Hemostasis within expected timeframe Date of Insertion : 07/10/2016 BIOSTATISTICS TEACHER Discontinued Date : 07/10/2016 BIOSTATISTICS TEACHER IV Site : Hand Laterality : Right Catheter Size : 20 Catheter Type : Over the needle Site Condition : No complications Drainage Description : None Infiltration Score : 0 Phlebitis Score : 0 BRITT PATTERSON 07/10/2016 11:48 BIOSTATISTICS TEACHER I&O Oral Intake : 120 mL Other Intake : 400 mL (Comment: I.V. fluids [BRITT PATTERSON 07/10/2016 11:48 BIOSTATISTICS TEACHER] ) BRITT PATTERSON 07/10/2016 11:48 BIOSTATISTICS TEACHER Nutrition Morning Snack : 100 % BRITT PATTERSON 07/10/2016 11:48 BIOSTATISTICS TEACHER Neurologic Swallowing Difficulty/Aspiration Risk : None Extremity Movement : Equal Facial Symmetry : Symmetric Characteristics of Speech : Appropriate for age BRITT PATTERSON 07/10/2016 11:48 BIOSTATISTICS TEACHER Activity Patient Position : Elevate head of bed 45 degrees BRITT PATTERSON 07/10/2016 11:48 BIOSTATISTICS TEACHER PARSAP Activity Status : Moves 4 extremities [...] Score : 20 BRITT PATTERSON 07/10/2016 11:48 BIOSTATISTICS TEACHER Vale Vale Agitation Sedation Scale (RASS) : Alert and calm RASS Score : 0 BRITT PATTERSON 07/10/2016 11:48 BIOSTATISTICS TEACHER Hawk Sensory Perception Hawk : No impairment Moisture Hawk : Rarely moist Activity Hawk : Walks frequently Mobility Hawk : No limitations Nutrition Hawk : Excellent Friction and Shear Hawk : No apparent problem Hawk Score : 23 BRITT PATTERSON 07/10/2016 11:48 BIOSTATISTICS TEACHER Falls Assessment Fall Injury Risk History of Falls : No Patient at Risk for Falls : No Fall Injury Risk Factors : None of the below Risk Factors Patient has increased Fall Injury Risk : No BRITT PATTERSON RN - 07/10/2016 11:48 BIOSTATISTICS TEACHER Hendrich II Fall Risk Confusion/Disorientation Hendrich : [...] 1 BRITT PATTERSON RN - 07/10/2016 11:48 BIOSTATISTICS TEACHER Safe Patient Handling Safe Pt Handling Independent : Yes - No equipment needed Safe Pt Handling Equipment Rec : No Equipment Needed BRITT PATTERSON RN - 07/10/2016 11:48 BIOSTATISTICS TEACHER Source: Hybrent Document Id: [id number] BIOSTATISTICS TEACHER!101 TATISTICS TEACHER Miscellaneous - Pinky Ordonez M.D. - 07/10/2016 11:27 AM CST Hospital Patient Education The following Patient Education Materials have been given to the patient: Patient Education Materials: Discharge Instructions - Adult (CUSTOM) Ambulatory DIET, High FI[place] ED/Trauma Understanding Diverticulosis and Diverticulitis [address]08 Endoscopy/Colonoscopy/Flexible Sigmoidoscopy Post-Procedure Discharge Instructions Date: Sunday, [...] call your doctor or the Emergency Department ([phone])if you have any questions OR notice any [...] grain cereal with bran (Chex, Raisin Bran, Sabina Bran), oatmeal, rolled oats, granola,wheat flakes, brown [...] all kinds OTHER: Popcorn, any spices ?? [phone] Inez Olivera, [address] [facility], [place] [address]. All rights reserved. This information is not [...] needed, you may be told to take lajl-ilp-ayspbjr stool softeners. To help relieve pain, antispasmodic [...] the option of having surgery with you. [place] to Colon Health Help keep your colon healthy with a diet that includes plenty of high-fiber fruits, vegetables, and whole grains. Drink plenty of liquids like water and juice. ?? [phone] Inez [facility], [address] [place] [address], [place] [address]. All rights reserved. This information is not intended as a substitute for professional medical care. Always follow your healthcare professional's instructions. This document has images extracted. Please consider using [employer] ([employer]) for all your patient education needs. Source: [facility] POWERCHART Document Id: [id number] TATISTICS TEACHER documented in this encounter Plan of Treatment Not on filedocumented as of this encounter Visit Diagnoses Not on filedocumented in this encounter Additional Health Concerns Assessment Noted Time PHQ-9 Depression Total Score: 2 03/08/2015 11:16 AM CS T documented as of this encounter
--- OUTSIDE RECORDS SUMMARY | 2022-03-08 11:06 | XMS_ITS | Encounter Summary ---
:1940 Author Organization [facility] Address [address] [place] [address] Care Team Providers Name Role Phone Unavailable Primary Care Provider Unavailable Encounter Details Date Type Department Care Team Description 05/22/2017 Abstract Department of Family Medicine, Provider, Historical [facility], in [place], [place] [address] [place] [address] Social History Tobacco Use Types Packs/Day [...]
--- OUTSIDE RECORDS SUMMARY | 2022-03-08 11:06 | XMS_ITS | Encounter Summary ---
:1940 Author Organization [facility] Address [address] [place] [address] Care Team Providers Name Role Phone Unavailable [...] Type Department Care Team Description 07/03/2018 Emergency [place] [facility] Isiah Hart D izziness (Primary Dx); Department M.D. [facility]; [address] [place] [address] [place] [address] [place] [address] [phone] Social History Tobacco Use Types Packs/Day Years Used Date Smoking Tobacco: Former Smokeless Tobacco: Never Alcohol Use Standard Drinks/Week Comments No 0 (1 standard drink = 0.6 oz pure alcoho l) Sex Assigned at Date Recorded Not on file documented as of this encounter Last Filed Vital Signs Vital Sign Reading Time Taken Comments Blood Pressure 117/70 07/03/2018 10:30 PM GOLF COURSE STARTER Pulse 57 07/03/2018 11:00 PM GOLF COURSE STARTER Temperature - - Respiratory Rate 20 07/03/2018 11:00 PM GOLF COURSE STARTER Oxygen Saturation 93% 07/03/2018 11:00 PM GOLF COURSE STARTER Inhaled Oxygen Concentration - - Weight 67.1 kg (148 lb) 07/03/2018 8:28 PM GOLF COURSE STARTER Height - - Body Mass Index 23.79 06/25/2016 8:20 AM GOLF COURSE STARTER documented in this encounter Discharge Instructions AttachmentsThe following attachments cannot be sent through Care Everywhere. Dehydration Adult (Iranian)documented in this encounter Medications at Time of [...] tartrate 0 06/23/201708/15 (for_LOPRESSOR) 25 mg tablet dvrfvhjvujjv-swqxajlf-qpk Take 1 tablet by 0 06/0608/15/2018 ifrah [...] history of coronary artery disease status post [place] and stent placement in 2011, as well [...] INTRAOCULAR LENS; Surgeon: Raymundo Muniz M.D.; Location: [facility] OR 07/21/2017: EXTRACTION CATARACT WITH INSERTION INTRAOCULAR LENS; Left Comment: Procedure: EXTRACTION CATARACT WITH INSERTION INTRAOCULAR LENS; Surgeon: Raymundo Muniz M.D.; Location: [facility] OR 06/23/2006: MOHS SURGERY; N/A Comment: [...] tablet, Take 0.5 tablets by mouth daily. ksvxmthvfesl-xdkvdekl-rpxblbg gluconate (MULTIVITAMIN WITH MINERALS) 9 mg iron/15 [...] Lightheadedness Dehydration Isiah Hart M.D. Resident 07/03/182245 COURSE STARTER documented in this encounter Plan of Treatment Not on filedocumented as of this encounter Procedures Procedure Name Priority Date/Time Associated Comments Diagnosis URINALYSIS WITH STAT 07/03/2018 9:59 PM Result s for this MICROSCOPIC GOLF COURSE STARTER procedure are i n the results section. CBC WITH STAT 07/03/2018 9:42 PM Results f or this DIFFERENTIAL, B GOLF COURSE STARTER procedure ar e in the results section. C-REACTIVE PROTEIN STAT 07/03/2018 9:42 PM Res ults for this (CRP), S/P GOLF COURSE STARTER procedure are i n the results section. TROPONIN T, 5TH GEN, STAT 07/03/2018 9:42 PM R esults for this P GOLF COURSE STARTER procedure are i n the results section. BASIC METABOLIC STAT 07/03/2018 9:42 PM Result s for this PANEL, S/P GOLF COURSE STARTER procedure are i n the results section. ECG STAT 07/03/2018 8:55 PM Results f or this GOLF COURSE STARTER procedure are i n the results section. documented in this encounter Results (ABNORMAL) Urinalysis with Microscopic (midstream) (07/03/2018 9:59 PM GOLF COURSE STARTER) athologist Signature Source Midstream 07/03/2018 [facility] 10:06 PM [facility] Clarity Clear Clear 07/03/2018 [facility] 10:06 PM [facility] Color Yellow 07/03/2018 [facility] 10:06 PM [facility] Comment: ----REFERENCE VALUE---- Colorless Yellow Isabel Blood Negative Negative 07/03/2018 10:06 PM [facility] Nitrite Negative Negative 07/03/2018 10:06 PM [facility] Leukocyte Esterase Trace (A) Negative 07/03/2018 10:06 PM [facility] Protein Negative mg/dL 07/03/2018 10:06 PM [facility] Comment: ----REFERENCE VALUE---- Negative Trace Glucose Negative Negative mg/dL 07/03/2018 10:06 PM [facility] Ketones, QI(U) Negative Negative mg/dL 07/03/2018 10:06 PM [facility] Bilirubin Negative Negative 07/03/2018 10:[address] [facility] pH 6.0 5.0 - 8.0 07/03/2018 10:[address] [facility] Specific Cocoa 1.010 1.001 - 1.035 07/03/2018 10:06 PM [facility] Urobilinogen 0.2 0.2 - 1.0 mg/dL 07/03/2018 10:[address] [facility] White Blood Cells Occ-3 /hpf 07/03/2018 10:09 PM [facility] [employer] [facility] Comment: ----REFERENCE VALUE---- Males: 0-3 Females: 0-10 Unknown: 0-10 Red Blood Cells None Seen 0 - 2 /hpf 07/03/2018 10:09 PM [facility] [employer] [facility] Dysmorphic Red Blood <=25 <=25 % 07/03/2018 10:09 PM [facility] Cells [facility] Hyaline Casts Occasional /lpf 07/03/2018 10:09 PM [facility] Specimen Anatomical Collection Method Collection Time Receive d Time (Source) Location / / Volume Laterality Urine (Urine, 07/03/2018 9:59 PM 07/04/19 9:59 Midstream) [facility] GOLF COURSE STARTER Isiah Hart M.D. LAB URINE ORDERABLES Performing Organization Address City/State/ZIP Code Phon e Number [address] [address] [place] [facility] Troponin T, 5th Generation (07/03/2018 9:42 PM GOLF COURSE STARTER) athologist Signature Troponin T, 5th 8 <=15 ng/L 07/03/2018 [facility] gen 10:02 PM [facility] Comment: Biotin has been identified by the [place] as a potential interfering substance. ??Higher concentr ations of biotin may be found in multivitamins, hair/nail supple ments, and workout supplements. ??If the result does not [facility] clinical observations, repeat testing after patient refrains fr om the use of supplements for at least 12 hours. Specimen Anatomical Collection Method Collection Time Receive d Time (Source) Location / / Volume Laterality Blood (Blood, 07/03/2018 9:42 PM 07/04/19 9:44 Venous) GOLF COURSE STARTER PM GOLF COURSE STARTER Isiah Hart M.D. LAB BLOOD ADD-ON Performing Organization Address City/[facility]/ZIP Code Phon e Number [address] [address] [place] [facility] CRP (C-Reactive Protein) (07/03/2018 9:42 PM GOLF COURSE STARTER) athologist Signature C-Reactive 0.9 <=8.0 mg/L 07/03/2018 [facility] Protein (CRP), 10:07 PM [facility] [place] [facility] Specimen Anatomical Collection Method Collection Time Receive d Time (Source) Location / / Volume Laterality Blood (Blood, 07/03/2018 9:42 PM 07/04/19 9:44 Venous) GOLF COURSE STARTER PM GOLF COURSE STARTER Isiah Hart M.D. LAB BLOOD ADD-ON Performing Organization Address City/[facility]/ZIP Code Phon e Number [address] [address] [place] [facility] CBC with Differential (07/03/2018 9:42 PM GOLF COURSE STARTER) athologist Signature Hemoglobin 14.4 13.2 - 07/03/2018 [facility] 16.6 g/dL 9:47 PM [facility] Hematocrit 43.2 38.3 - 07/03/2018 [facility] 48.6 % 9:47 PM [facility] [employer] [facility] Erythrocytes 4.70 4.35 - 07/03/2018 [facility] 5.65 9:47 PM [facility] HEALTH x10(12)/L [facility] [employer] [facility] MCV 91.9 78.2 - 07/03/2018 [facility] 97.9 fL 9:47 PM [facility] RBC Distrib Width 14.3 11.8 - 07/03/2018 [facility] 14.5 % 9:47 PM [facility] Platelet Count 202 135 - 317 07/03/2018 [facility] x10(9)/L 9:47 PM [facility] Leukocytes 8.2 3.4 - 9.6 07/03/2018 [facility] x10(9)/L 9:47 PM [facility] Neutrophils 5.79 1.56 - 07/03/2018 [facility] 6.45 9:47 PM [facility] HEALTH x10(9)/L [facility] Lymphocytes 1.54 0.95 - 07/03/2018 [facility] 3.07 9:47 PM GOLF COURSE STARTER HEALTH x10(9)/L [facility] [employer] [facility] Monocytes 0.55 0.26 - 07/03/2018 [facility] 0.81 9:47 PM [facility] HEALTH x10(9)/L [facility] [employer] [facility] Eosinophils 0.27 0.03 - 07/03/2018 [facility] 0.48 9:47 PM [facility] HEALTH x10(9)/L [facility] [employer] [facility] Basophils 0.02 0.01 - 07/03/2018 [facility] 0.08 9:47 PM [facility] HEALTH x10(9)/L [facility] [employer] [facility] Specimen Anatomical Collection Method Collection Time Receive d Time (Source) Location / / Volume Laterality Blood (Blood, 07/03/2018 9:42 PM 07/04/19 19 9:44 Venous) GOLF COURSE STARTER PM GOLF COURSE STARTER Isiah Hart M.D. LAB BLOOD ADD-ON Performing Organization Address City/State/ZIP Code Phon e Number [facility] [id number] [place] [address] [place] [facility] BMP (Basic Metabolic Panel) (07/03/2018 9:42 PM GOLF COURSE STARTER) P athologist Signature Potassium, P 4.5 3.6 - 5.2 07/03/2018 [facility] mmol/L 10:12 PM [facility] [employer] [facility] Sodium, P 140 135 - 145 07/03/2018 [facility] mmol/L 10:12 PM [facility] Chloride, P 103 98 - 107 07/03/2018 [facility] mmol/L 10:12 PM [facility] [employer] [facility] Bicarbonate, P 25 22 - 29 07/03/2018 [facility] mmol/L 10:13 PM [facility] Anion Gap, P 12 7 - 15 07/03/2018 [facility] 10:12 PM [facility] [facility] BUN (Blood Urea 16 8 - 24 07/03/2018 [facility] Nitrogen), P mg/dL 10:13 PM [facility] Creatinine 1.02 0.74 - 07/03/2018 [facility] 1.35 mg/dL 10:13 PM [facility] [employer] [facility] eGFR-Black/Afri 82 >=60 07/03/2018 [facility] can Citizen Of [place] mL/min/BSA 10:13 PM [facility] [facility] Comment: ----ADDITIONAL INFORMATION---- Estimated GFR calculated using the 2009 CKD_EPI creatinine equation. eGFR Non-Black/ 71 >=60 mL/min/BSA 07/03/2018 10:13 PM [facility] Citizen Of [place] [facility] [facility] Comment: ----ADDITIONAL INFORMATION---- Estimated GFR calculated using the 2009 CKD_EPI creatinine equation. Calcium, Total, P 9.9 8.8 - 10.2 mg/dL 07/03/2018 1 0:13 PM [facility] Glucose, P 126 70 - 140 mg/dL 07/03/2018 10:13 PM [facility] [employer] [facility] Specimen Anatomical Collection Method Collection Time Receive d Time (Source) Location / / Volume Laterality Blood (Blood, 07/03/2018 9:42 PM 07/04/19 19 9:44 Venous) GOLF COURSE STARTER PM [facility] Isiah Hart M.D. LAB BLOOD ADD-ON Performing Organization Address City/State/ZIP Code Phon e Number [facility] [id number] [address] [place] [facility] ECG 12 Lead (STAT) (07/03/2018 8:55 PM GOLF COURSE STARTER) P athologist Signature Ventricular Rate 63 BPM MUSE ECG/Min [place] Interval 164 ms MUSE QRSD Interval 78 ms MUSE QT Interval 418 ms MUSE QTC Interval 427 ms MUSE P [place] 37 degrees MUSE T Wave [place] 39 degrees MUSE Specimen Anatomical Collection Method Collection Time Receive d Time (Source) Location / / Volume Laterality 07/03/2018 8:55 PM 9 9:01 GOLF COURSE STARTER PM GOLF COURSE STARTER Impressions MUSE - 07/03/2018 9:01 PM GOLF COURSE STARTER Sinus rhythm Premature ventricular complexes Cannot rule [...]
--- OUTSIDE RECORDS SUMMARY | 2022-03-08 11:06 | XMS_ITS | Encounter Summary ---
:1940 Author Organization [facility] Address [address] [place] [address] Care Team Providers Name Role Phone Unavailable Primary Care Provider Unavailable Reason for Visit Reason Comments Communication Encounter Details Date Type Department Care Team Description 06/27/2017 Clinical Communication Department of Mike Montelongo, Communication MedicineMargarito M.D., Ph.D. [address] [address] [place], [place] [phone] (Work) [phone] Social History Tobacco Use Types Packs/Day Years Used Date Smoking Tobacco: Former Smokeless Tobacco: Never Alcohol Use Standard Drinks/Week Comments No 0 (1 standard drink = 0.6 oz pure alcoho l) Sex Assigned at Date Recorded Not on file documented as of this encounter Miscellaneous Notes Telephone Encounter - Melinda Meadows R.N. - 06/27/2017 3:14 PM WOODWORKING MACHINE OPERATOR Returned call to [place]. Ophthalmology had not contacted him and he said that he was not sure who it was. I reviewed his appointment times with him for Friday here in [place] and he verbalized understanding. WORKING MACHINE OPERATOR Telephone Encounter - Juliette Wong - 06/27/2017 12:33 PM CST Patient returning a phone call, there were no messages to alert where to send the call. Patient is having surgery and has questions about that. Patient can be reached at [phone] WORKING MACHINE OPERATOR documented in this encounter Plan of Treatment Not on filedocumented as of this encounter Visit Diagnoses Not on filedocumented in this encounter Additional Health Concerns Assessment Noted Time PHQ-9 Depression Total Score: 2 03/08/2015 11:16 AM CS T documented as of this encounter
--- OUTSIDE RECORDS SUMMARY | 2022-03-08 11:06 | XMS_ITS | Encounter Summary ---
:1940 Author Organization [facility] Address [address] [place] [address] Care Team Providers Name Role Phone Unavailable Primary Care Provider Unavailable Encounter Details Date Type Department Care Team Description 07/17/2017 Abstract Department of Family Medicine, Provider, Historical [facility], in [place], [place] [address] [place] [address] Social History Tobacco Use Types Packs/Day [...]
--- OUTSIDE RECORDS SUMMARY | 2022-03-08 11:06 | XMS_ITS | Encounter Summary ---
:1940 Author Organization [facility] Address [address] [place] [address] Care Team Providers Name Role Phone Unavailable Primary Care Provider Unavailable Encounter Details Date Type Department Care Team Description 07/07/2017 Surgery [facility] OR Raymundo Muniz, EXTRACTION CATARACT [address] [place] [address] BLVD M.DLara WITH INSERTION [place], [place] [address] INTRAOCULAR LENS [address] [place], [place] [phone] (Wo rk) Social History Tobacco Use Types Packs/Day Years Used Date Smoking Tobacco: Former Smokeless Tobacco: Never Alcohol Use Standard Drinks/Week Comments No 0 (1 standard drink = 0.6 oz pure alcoho l) Sex Assigned at Date Recorded Not on file documented as of this encounter Last Filed Vital Signs Vital Sign Reading Time Taken Comments Blood Pressure 121/81 07/07/2017 9:00 AM PROGRAMMING DEVELOPMENT PROJECT MANAGER Pulse 58 07/07/2017 9:00 AM PROGRAMMING DEVELOPMENT PROJECT MANAGER Temperature 36.4 ??C (97.5 ??F) 07/07/2017 8:47 AM PROGRAMMING DEVELOPMENT PROJECT MANAGER Respiratory Rate 16 07/07/2017 8:47 AM PROGRAMMING DEVELOPMENT PROJECT MANAGER Oxygen Saturation 94% 07/07/2017 9:00 AM PROGRAMMING DEVELOPMENT PROJECT MANAGER Inhaled Oxygen Concentration - - Weight [...] tartrate 0 06/23/201708/15 (for_LOPRESSOR) 25 mg tablet aqqsmhkbadmo-qfjhkqxa-tx Take 1 tablet by 0 06/2508/15/2018 rrous [...] Implant Name Type Inv. Item Serial No. Venetian Blind Assembler Lot No. LRB No. Used Action TENCNIS IOL Ocular Lens [id number] [place] [id number] Right 1 Implanted Raymundo Muinz M.D. PREOPERATIVE DIAGNOSIS Visually disabling nuclear sclerotic [...] The nucleus was grooved centrally and deeply [id number] degrees and cracked in half. Each nuclear [...] at 1 day postop. Raymundo Muniz M.D. 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 documented in this encounter Administered Medications Inactive Administered Medications - up to 3 most recent administrations Medication Order MAR Action Action Date Dose Rate Site balanced salt solution ophthalmic Given 07/07/2017 8:32 AM PROGRAMMING DEVELOPMENT PROJECT MANAGER 1 5 mL irrigation (for_BSS) As [...] injection (for_ZI NACEF) Given 07/07/2017 8:32 AM PROGRAMMING DEVELOPMENT PROJECT MANAGER 1 mg As needed, Starting on Fri07/07/17 at 0832, Intra-Op cyclopentolate-phenylephrine 0.125-1.25 % Given 07/07/2017 7:25 AM PROGRAMMING DEVELOPMENT PROJECT MANAGER 1 drop ophthalmic solution 1 drop (for_DILATING DROPS) 1 drop, right eye, Once, On Fri07/07/17 at 0715, For 1 dose, Pre-Op, Apply over cornea in operative eye, towards superior fornix and towards inferior fornix. Apply at least 30 minutes prior to case EPINEPHrine 0.3 mg in balanced salt solution Given 09/2017 8:32 AM PROGRAMMING DEVELOPMENT PROJECT MANAGER 500 mL plus 500 mL ophthalmic irrigation As needed, Starting on Fri07/07/17 at 0832, Intra-Op povidone-iodine 5 % ophthalmic solution Given 07/07/2017 8:32 AM PROGRAMMING DEVELOPMENT PROJECT MANAGER 30 mL (for_BETADINE) As needed, Starting on Fri07/07/17 at 0832, Intra-Op tetracaine (PF) 0.5 % ophthalmic solution Given 07/07/2017 8:32 AM PROGRAMMING DEVELOPMENT PROJECT MANAGER 1 drop (for_ALTACAINE) As needed, Starting on Fri07/07/17 at 0832, Intra-Op tetracaine (PF) 0.5 % ophthalmic Given 07/07/2017 8:59 AM PROGRAMMING DEVELOPMENT PROJECT MANAGER 1 drop Right Eye solution 1 drop (for_ALTACAINE) 1 drop, right eye, Every 5 min, First dose on Fri07/07/17 at 0715, For 4 doses, Pre-Op, in operative eye Given 07/07/2017 7:21 AM PROGRAMMING DEVELOPMENT PROJECT MANAGER 1 drop Given 07/07/2017 7:18 AM PROGRAMMING DEVELOPMENT PROJECT MANAGER 1 drop documented in this encounter Active and Recently Administered Medications Times are shown in PROGRAMMING DEVELOPMENT PROJECT MANAGER. Scheduled Medication Order 07/05/2017 07/06/2017 07/07/2017 [...]
--- OUTSIDE RECORDS SUMMARY | 2022-03-08 11:06 | XMS_ITS | Encounter Summary ---
:[address] [facility] Address [address] [place] [address] Care Team Providers Name Role Phone Unavailable Primary Care Provider Unavailable Encounter Details Date Type Department Care Team Description 06/30/2017 Ancillary Procedure Department of Raymundo Muniz Ophthalmology in [place], [place] [address] [place] [phone] Social History Tobacco Use Types [...] Results for this OU - BOTH EYES PROTOTYPE ASSEMBLER ELECTRONICS Nuclear Sclerosis procedur e are in Right the results Cataract Senile section. Nuclear Sclerosis Left documented in this encounter Results Corneal Topography - OU - Both Eyes (06/30/2017 11:15 AM PROTOTYPE ASSEMBLER ELECTRONICS) Specimen (Source) Anatomical Location Collection Method / [...]
--- OUTSIDE RECORDS SUMMARY | 2022-03-08 11:06 | XMS_ITS | Encounter Summary ---
:1940 Author Organization [facility] Address [address] [place] [address] Care Team Providers Name Role Phone Unavailable Primary Care Provider Unavailable Reason for Visit Reason Comments Communication Encounter Details Date Type Department Care Team Description 06/30/2017 Clinical Communication Department of Gena Quinn mmunication Ophthalmology in Fabricio Matthews R.N. [place], [place] [address] [facility] [address] [place] [phone] Social History Tobacco Use Types Packs/Day Years Used Date Smoking Tobacco: Former Smokeless Tobacco: Never Alcohol Use Standard Drinks/Week Comments No 0 (1 standard drink = 0.6 oz pure alcoho l) Sex Assigned at Date Recorded Not on file documented as of this encounter Miscellaneous Notes Telephone Encounter - Tammy Maria C.O.A. - 06/30/2017 2:36 PM CST Ketorolac was sent to the pharmacy [facility] Telephone Encounter - Gena Quinn R.N. - 06/30/2017 11:37 AM CST Patient is scheduled for cataract surgery 3/5/18, but he did not receive his Diclofenac. Please callkwame Etienne in [place]. [facility] documented in this encounter Plan of Treatment Not on filedocumented as of this encounter Visit Diagnoses Not on filedocumented in this encounter Additional Health Concerns Assessment Noted Time PHQ-9 Depression Total Score: 2 03/08/2015 11:16 AM CS T documented as of this encounter
--- OUTSIDE RECORDS SUMMARY | 2022-03-08 11:06 | XMS_ITS | Encounter Summary ---
:1940 Author Organization [facility] Address [address] [place] [address] Care Team Providers Name Role Phone Unavailable Primary Care Provider Unavailable Encounter Details Date Type Department Care Team Description 07/01/2016 Hospital Encounter HX [facility] Ricardo Bethea M.D., Ph.D. [phone] [address] (Wo rk) Social History Tobacco Use [...] suggests that it was the tartrate formulation. hcclfjyslifd-hhkwtpoq-pff Take 1 tablet by 0 06/0608/15/2018 ifrah [...] Historical Provider Ser - 07/01/2016 11:59 PM ASSISTANT WOMEN'S BASKETBALL COACH Coding Summary-Paper Based CODING DATE: 07/04/2016 FINAL [facility] STATUS: * Discharged to Home or [...] DAY Date Saved: 07/04/2016 01:09 pm Source: [facility] Shipping Easy Document Id: [id number] Miscellaneous - Tea Givens M.D. - 07/01/2016 1:52 PM CST From: TEA GIVENS MD To: [place] [facility] Nurse Rod[place]; Sent: 07/01/2016 13:52:31 ASSISTANT WOMEN'S BASKETBALL COACH Call, His ultrasound shows diffuse fatty liver (hepatic steatosis). To prevent this from progressingto a more significant disease state, he should eat a lower carb diet. Source: [facility] Shipping Easy Document Id: [id number] Electronically signed by Conversion, [facility] Fishery Division Chief [id number] at 10/15/2016 1:01 AM CDT documented in this encounter Plan of Treatment Not on filedocumented as of this encounter Visit Diagnoses Not on filedocumented in this encounter Additional Health Concerns Assessment Noted Time PHQ-9 Depression Total Score: 2 03/08/2015 11:16 AM CS T documented as of this encounter
--- OUTSIDE RECORDS SUMMARY | 2022-03-08 11:06 | XMS_ITS | Encounter Summary ---
:1940 Author Organization [facility] Address [address] [place] [address] Care Team Providers Name Role Phone Unavailable Primary Care Provider Unavailable Encounter Details Date Type Department Care Team Description 06/30/2017 Ancillary Department of Flavio, Cataract Senil e Nuclear Sclerosis Right (Primary Dx); Procedure Ophthalmology in [facility] Raymundo Soares M.D. Cataract Senile Nuclear Sclerosis Left [place] [place] [phone] Social History Tobacco Use [...] esults for this BIOMETRY (OCB) - OU NATURAL RESOURCES TECHNICIAN Nuclear Sclerosis pro cedure are in - BOTH EYES Right the results Cataract Senile section. Nuclear Sclerosis Left CORNEAL TOPOGRAPHY - Routine 06/30/2017 11:15 AM Cataract Eugenia le Results for this OU - BOTH EYES NATURAL RESOURCES TECHNICIAN Nuclear Sclerosis procedur e are in Right the results Cataract Senile section. Nuclear Sclerosis Left documented in this encounter Results Ocular Coherence Biometry (OCB) - OU - Both Eyes (06/30/2017 11:17 AM NATURAL RESOURCES TECHNICIAN) Specimen (Source) Anatomical Location Collection Method / Collectio n Time Received Time / Laterality Volume Raymundo Paz M.D. - 08/15/2017 9: 49 AM CDT MODALITY Right Eye The modality was IOL Master. Left Eye The modality was IOL Master. IOL MEASUREMENTS Right Eye IOL Measurements: Axial length was 24.11 mm. K-1 was 42.48 diopters. K1 [place] was 112.00 degrees. K-2 was 43.43. K2 [place] was 22.00 degrees. WTW was 11.80 mm. ACD was 2.59 mm. Lens thicknes s was 5.43 mm. Left Eye IOL Measurements: Axial length was 23.66 mm. K-1 was 42.90 diopters. K1 [place] was 74.00 degrees. K-2 was 43.60. K 2 [place] was 164.00 degrees. WTW was 11.90 mm. ACD was 2.67 mm. Lens thicknes s was 5.22 mm. Raymundo Muniz M.D. OPHTH PHOTOGRAPHY Corneal Topography - OU - Both Eyes (06/30/2017 11:15 AM NATURAL RESOURCES TECHNICIAN) Specimen (Source) Anatomical Location Collection Method / [...]
--- OUTSIDE RECORDS SUMMARY | 2022-03-08 11:06 | XMS_ITS | Encounter Summary ---
:1940 Author Organization [facility] Address [address] [place] [address] Care Team Providers Name Role Phone Unavailable Primary Care Provider Unavailable Encounter Details Date Type Department Care Team Description 08/01/2017 Abstract Department of Family Medicine, Provider, Historical [facility], in [place], [place] [address] [place] [address] Social History Tobacco Use Types Packs/Day [...]
--- OUTSIDE RECORDS SUMMARY | 2022-03-08 11:06 | XMS_ITS | Encounter Summary ---
:1940 Author Organization [facility] Address [address] [place] [address] Care Team Providers Name Role Phone Unavailable Primary Care Provider Unavailable Encounter Details Date Type Department Care Team Description 07/07/2017 Anesthesia Event [facility] MAIN OR La Nena Ochoa, ED, NURSE PRIVATE DUTY, DNAP [address] [place] [address] Jax Stoner, ED, NURSE PRIVATE [place], [place] [address] Anesthesia Record Procedure Summary Procedure Name Responsible Anesthesia Start Anesthesia Stop Anesthesiologist Time Time EXTRACTION CATARACT La Nena Ochoa, 07/07/17 0823 07/07 0847 WITH INSERTION TIRE TRUCKER, NURSE PRIVATE DUTY, DNAP INTRAOCULAR LENS (Right) Events Date Time [...] h andoff to the receiving staff during [facility] ch we 1. Identified the patient [...] Procedure Summary Date: 07/07/17 Room / Location: [place] [address] CAC 2-220 / [facility] OR Anesthesia Start: 822 [...] Post Op nausea/vomiting: none Hydration status: euvolemic SITE WELLNESS PRACTITIONER Anesthesia Preprocedure Evaluation - La Nena Ochoa [...] patient / legal guardian, or through an automation technologist; patient evaluated and approved for anesthesia / sedation. The use of blood products not discussed MAC, minimal sedation Patient identified, chart reviewed, anesthetic plan discussed with patient, patient agrees with plan. SITE WELLNESS PRACTITIONER documented in this encounter Plan of Treatment Not on filedocumented as of this encounter Visit Diagnoses Not on filedocumented in this encounter Administered Medications Inactive Administered Medications - up to 3 most recent administrations Medication Order MAR Action Action Date Dose Rate Site fentaNYL injection (for_SUBLIMAZE) Given 07/07/2017 8:26 AM WORKSITE WELLNESS PRACTITIONER 25 mcg intravenous, As needed, severe pain or score 7-10 of 10, Starting on Fri07/07/17 at 0826, Anesthesia Intra-op midazolam (PF) injection (for_VERSED) Given 07/07/2017 8:26 AM WORKSITE WELLNESS PRACTITIONER 1 mg As needed, Starting on Fri07/07/17 at 0826, Anesthesia Intra-op documented in this encounter Additional Health Concerns Assessment Noted Time PHQ-9 Depression Total Score: 2 03/08/2015 11:16 AM CS T documented as of this encounter
--- OUTSIDE RECORDS SUMMARY | 2022-03-08 11:06 | XMS_ITS | Encounter Summary ---
:1940 Author Organization [facility] Address [address] [place] [address] Care Team Providers Name Role Phone Unavailable [...]
--- OUTSIDE RECORDS SUMMARY | 2022-03-08 11:06 | XMS_ITS | Encounter Summary ---
:1940 Author Organization [facility] Address [address] [place] [address] Care Team Providers Name Role Phone Unavailable Primary Care Provider Unavailable Encounter Details Date Type Department Care Team Description 07/21/[address] [facility] MAIN OR Cr Britt, ED, LEAD FRONT DESK AGENT [address] Jax Stoner, ED, LEAD FRONT DESK AGENT, [place] [address] Anesthesia Record Procedure Summary Procedure Name Responsible Anesthesia Start Anesthesia Stop Anesthesiologist Time Time EXTRACTION CATARACT Cr Britt APRN, 07/21/17 0901 0 07/21/17 0926 WITH INSERTION LEAD FRONT DESK AGENT INTRAOCULAR LENS (Left) Events Date Time Event [...] h andoff to the receiving staff during [facility] we 1. Identified the patient 2. [...] Procedure Summary Date: 07/21/17 Room / Location: [address] 2-[address] / [facility] OR Anesthesia Start: 900 Anesthesia Stop: [...] LIST Relevant Problems (+) Polymyalgia Rheumatica (HCC) [place] '12 TIA GERD Lt Vocal Cord Paralysis [...] patient / legal guardian, or through an ios architect; patient evaluated and approved for anesthesia / [...]
--- OUTSIDE RECORDS SUMMARY | 2022-03-08 11:06 | XMS_ITS | Encounter Summary ---
:1940 Author Organization [facility] Address [address] [place] [address] Care Team Providers Name Role Phone Unavailable Primary Care Provider Unavailable Reason for Visit Outpatient (Routine) - Closed Specialty Diagnoses / Procedures Referred By Contact Refer red To Contact Diagnoses Cataract Senile Nuclear Sclerosis Right Raymundo Muniz M.D. [address] [address] Referral ID Status Reason Start Date Expiration Date Visits Requ ested Visits Authorized [id number] Closed 05/01/2017 10/28/2017 1 1 Encounter Details Date Type Department Care Team Description 06/30/2017 Nurse Only Department of General Sandro Muniz M.D. [address] [place] [phone] Surgery in [facility] Gena Quinn, RSelvin [address] [place] [phone] [phone] Social History Tobacco Use Types Packs/Day [...] a SARI visit on 06/30/17. Surgery Nurse Commercial Crabber Anesthesia Risk Assessment: Do you have difficulties lying flat? no Comment: Do you have an implanted cardiac device?no. Teaching: Preoperative education was done with (x) patient () other: It was confirmed the patient/family member had received the following preoperative education sheets: It was confirmed the patient/family member had received the following preoperative education sheets: Preparing for Your Surgery ([id number]),Surgical Site Infections ([id number]), Speak Up: Antibiotics ([id number]), Smoke Free, Advice for patients and visitors ([id number]), Managing Your Pain ([id number]) with the [employer] pamphlet ([id number]), Cataract Surgery: Required Appointments and Instructions ([id number]), and Financial Information for the Surgical Patient ([id number]), Preparing for Cataract Surgery Instructions ([id number]). These were reviewed in detail. The patient was instructed to bring the cataract eye kit and their eye drops the day of surgery. In addition, the patient was educated on lifting restrictions of 20 pounds for first week after surgery,using xpgl-wan-cwrwxea artificial tears for scratchy dry eyes and [...] appointments: 1st po with surgeon or physician hospital clinic assistant: Dr. Miranda's office ING ACTIVITIES SUPERVISOR documented in this encounter Plan of Treatment Not on filedocumented as of this encounter Visit Diagnoses Diagnosis Preanesthetic Medical Exam - Primary Cataract Senile Nuclear Sclerosis Right documented in this encounter Additional Health Concerns Assessment Noted Time PHQ-9 Depression Total Score: 2 03/08/2015 11:16 AM CS T documented as of this encounter
--- OUTSIDE RECORDS SUMMARY | 2022-03-08 11:06 | XMS_ITS | Encounter Summary ---
:1940 Author Organization [facility] Address [address] [place] [address] Care Team Providers Name Role Phone Unavailable Primary Care Provider Unavailable Encounter Details Date Type Department Care Team Description 07/07/2017 Hospital Encounter [facility] NEIL OR Raymundo Mun[address] [place], [place] [address] [place], [place] [address] [place], [place] [phone] (Wo rk) Social History Tobacco Use Types Packs/Day Years Used Date Smoking Tobacco: Former Smokeless Tobacco: Never Alcohol Use Standard Drinks/Week Comments No 0 (1 standard drink = 0.6 oz pure alcoho l) Sex Assigned at Date Recorded Not on file documented as of this encounter Last Filed Vital Signs Vital Sign Reading Time Taken Comments Blood Pressure 110/77 07/07/2017 9:27 AM PLUGGER MAN Pulse 59 07/07/2017 9:27 AM PLUGGER MAN Temperature 36.4 ??C (97.5 ??F) 07/07/2017 8:47 AM PLUGGER MAN Respiratory Rate 16 07/07/2017 8:47 AM PLUGGER MAN Oxygen Saturation 95% 07/07/2017 9:27 AM PLUGGER MAN Inhaled Oxygen Concentration - - Weight - [...] tartrate 0 06/23/201708/15 (for_LOPRESSOR) 25 mg tablet glsagrzjngse-lyowujlf-ml Take 1 tablet by 0 06/2508/15/2018 rrous [...] Implant Name Type Inv. Item Serial No. Medical Billing Service Lot No. LRB No. Used Action TENCNIS IOL Ocular Lens [id number] Ann [id number] Right 1 Implanted Raymundo Muniz M.D. PREOPERATIVE [...] The nucleus was grooved centrally and deeply [id number] degrees and cracked in half. Each nuclear [...] at 1 day postop. Raymundo Muniz M.D. GER MAN documented in this encounter Plan of Treatment Not on filedocumented as of this encounter Procedures Procedure Name Priority Date/Time Associated Diagnosis Comme nts EXTRACTION CATARACT WITH 07/07/2017 8:23 AM Cataract S enile INSERTION INTRAOCULAR PLUGGER MAN Nuclear Sclerosis LENS Right documented in this encounter Visit Diagnoses Diagnosis Cataract Senile Nuclear Sclerosis Right - Primary documented in this encounter Administered Medications Inactive Administered Medications - up to 3 most recent administrations Medication Order MAR Action Action Date Dose Rate Site brimonidine 0.2 % ophthalmic Given 07/07/2017 9:31 AM PLUGGER MAN 1 drop Right Eye solution 1 drop (for_ALPHAGAN) 1 drop, right eye, 2 times daily, First dose on Fri07/07/17 at 0930 cyclopentolate-phenylephrine 0.125-1.25 % Given 07/07/2017 7:25 AM PLUGGER MAN 1 drop ophthalmic solution 1 drop (for_DILATING DROPS) 1 drop, right eye, Once, On Fri07/07/17 at 0715, For 1 dose, Pre-Op, Apply over cornea in operative eye, towards superior fornix and towards inferior fornix. Apply at least 30 minutes prior to case tetracaine (PF) 0.5 % ophthalmic Given 07/07/2017 8:59 AM PLUGGER MAN 1 drop Right Eye solution 1 drop (for_ALTACAINE) 1 drop, right eye, Every 5 min, First dose on Fri07/07/17 at 0715, For 4 doses, Pre-Op, in operative eye Given 07/07/2017 7:21 AM PLUGGER MAN 1 drop Given 07/07/2017 7:18 AM PLUGGER MAN 1 drop documented in this encounter Active and Recently Administered Medications Times are shown in PLUGGER MAN. Scheduled Medication Order 07/05/2017 07/06/2017 07/07/2017 brimonidine [...]
--- OUTSIDE RECORDS SUMMARY | 2022-03-08 11:06 | XMS_ITS | Encounter Summary ---
:1940 Author Organization [facility] Address [address] [place] [address] Care Team Providers Name Role Phone Unavailable Primary Care Provider Unavailable Encounter Details Date Type Department Care Team Description 11/12/2017 Clinical Communication Department of Raymundo Muniz Ophthalmology in Fabricio Soares M.D. [address] [place] [phone] Social History Tobacco Use Types Packs/Day Years [...]
--- OUTSIDE RECORDS SUMMARY | 2022-03-08 11:06 | XMS_ITS | Encounter Summary ---
:1940 Author Organization [facility] Address [address] [place] [address] Care Team Providers Name Role Phone Unavailable Primary Care Provider Unavailable Reason for Referral Outpatient (Routine) - Closed Specialty Diagnoses / Procedures Referred By Contact Refer red To Contact Diagnoses Cataract Senile Nuclear Sclerosis Right Raymundo Muniz M.D. [facility] [address] [place] [address] [place] [address] Referral ID Status Reason Start Date Expiration Date Visits Requ ested Visits Authorized [id number] Closed 05/01/2017 10/28/2017 1 1 IAGE COUNSELOR MINISTER Reason for Visit Reason Comments Cataract Encounter Details Date Type Department Care Team Description 05/01/2017 Office Visit Department of Raymundo Muniz Cataract S enile Nuclear Sclerosis Bilateral (Primary Dx); Ophthalmology in Margarito Soares M.D. [place] Degenerative Macula Bilateral; [place], [place] [address] [place] [address] Cataract Senile Nuclear Sclerosis Right; [address] [facility] YARIEL [place]in Cataract Senile [place] [address] [phone] Social History Tobacco Use Types Packs/Day Years [...] 5. Patient would prefer his surgery in [place] at the [facility]. 6. We will use Miostat control the postoperative intra-ocular pressure. IAGE COUNSELOR MINISTER documented in this encounter Plan of Treatment [...]
--- OUTSIDE RECORDS SUMMARY | 2022-03-08 11:06 | XMS_ITS | Encounter Summary ---
:1940 Author Organization [facility] Address [address] [place] [address] Care Team Providers Name Role Phone Unavailable Primary Care Provider Unavailable Encounter Details Date Type Department Care Team Description 07/21/2017 Hospital Encounter [facility] NEIL OR Raymundo Muniz, [address] [place] [address] BLVD [place], [place] [address] [place], [place] [address] [place], [place] [phone] (Wo rk) Social History Tobacco Use [...] from the original note were not included. [facility] Cataract/Trabeculectomy Discharge Instructions, Eye Care [...] (Month DD, YYYY) Time (hh:mm) Ophthalmology at [facility] Phone Numbers: Office: [phone] Toll Free: [phone] ext. [phone] ??2016 [facility] Medical Education and Research Page 1 of 2 [id number] When you leave the hospital after your [...] tartrate 0 06/23/201708/15 (for_LOPRESSOR) 25 mg tablet kfdlacegnwvf-wfefofec-xx Take 1 tablet by 0 06/2508/15/2018 rrous [...] Raymundo Muniz M.D. - 07/07/2017 9:35 AM SALON/SPA MANAGER History of present illness: The patient [...] Implant Name Type Inv. Item Serial No. Statement Distribution Clerk Lot No. LRB No. Used Action [id number] Ocular Lens [id number] Ann Left 1 Implanted Raymundo Muniz M.D. [...]
--- OUTSIDE RECORDS SUMMARY | 2022-03-08 11:06 | XMS_ITS | Encounter Summary ---
:1940 Author Organization [facility] Address [address] [place] [address] Care Team Providers Name Role Phone Unavailable Primary Care Provider Unavailable Encounter Details Date Type Department Care Team Description 07/21/2017 Surgery [facility] NEIL OR Raymundo Muniz, EXTRACTION CATARACT [address] [place] [address] BLVD M.DLara WITH INSERTION [place], [place] [address] INTRAOCULAR LENS [address] [place], [place] [phone] (Wo rk) Social History Tobacco Use [...] from the original note were not included. [facility] Cataract/Trabeculectomy Discharge Instructions, Eye Care When you [...] YYYY) Time (hh:mm) Ophthalmology at [facility] Phone Numbers: Office: [phone] Toll Free: [phone] ext. [phone] ??2015 [facility] Medical Education and Research Page 1 of 2 [id number] When you leave the hospital after your [...] tartrate 0 06/23/201708/15 (for_LOPRESSOR) 25 mg tablet qqywnolordvw-usoxtcgo-tz Take 1 tablet by 0 06/2508/15/2018 rrous [...] Raymundo Muniz M.D. - 07/07/2017 9:35 AM DAIRY PROCESSING EQUIPMENT OPERATOR History of present illness: The patient is [...] Implant Name Type Inv. Item Serial No. Brick Catcher Lot No. LRB No. Used Action [id number] Ocular Lens [id number] Ann Left 1 Implanted Raymundo Muniz M.D. [...]
--- OUTSIDE RECORDS SUMMARY | 2022-03-08 11:06 | XMS_ITS | Encounter Summary ---
:1940 Author Organization [facility] Address [address] [place] [address] Care Team Providers Name Role Phone Unavailable Primary Care Provider Unavailable Encounter Details Date Type Department Care Team Description 06/25/2016 Hospital Encounter HX [facility] Ricardo Chang M.D., Ph.D. [address] [place] [address] [phone] (Wo rk) Social History Tobacco Use Types Packs/Day Years Used Date Smoking Tobacco: Former Sex Assigned at Date Recorded Not on file documented as of this encounter Last Filed Vital Signs Vital Sign Reading Time Taken Comments Blood Pressure 114/89 06/25/2016 8:20 AM HAND RUG CLEANER Pulse 56 06/25/2016 8:20 AM HAND RUG CLEANER Temperature - - Respiratory Rate 16 06/25/2016 8:20 AM HAND RUG CLEANER Oxygen Saturation - - Inhaled Oxygen Concentration - - Weight 69 kg (152 lb 1.9 oz) 06/25/2016 8:20 AM HAND RUG CLEANER Height 168 cm (5' 6.14) 06/25/2016 8:20 AM HAND RUG CLEANER Body Mass Index 24.45 06/25/2016 8:20 AM HAND RUG CLEANER documented in this encounter Medications at Time [...] suggests that it was the tartrate formulation. [id number] Take 1 tablet by 0 06/0608/15/2018 ifrah [...] Colon, polyp, benign Coronary Artery Disease (CAD) [place] Vessel Diverticulosis of Colon (Without Mention of [...] Ordered: OV Est Pt Level 4 - 04092 - 25 min 2. Screening Cancer Colon Referral for colonoscopy. Ordered: OV Est Pt Level 4 - 89597 - 25 min 3. Coronary Artery Disease (CAD) [place] Vessel Continue current medications and treatments. Pros/cons/side effects/alternatives and complications reviewed in detail. He is intolerant of statins. Ordered: nitroglycerin, 0.4 mg = 1 tab(s), SL, q5min, PRN Chest Pain, # 25 tab(s), 11 Refill(s), Maintenance, Pharmacy: [facility] EKG Notify Nurse - EKG Ordered OV Est Pt Level 4 - 28458 - 25 min 4. Elevated Blood Pressure Continue current medications and treatments. Pros/cons/side effects/alternatives and complications reviewed in detail. Ordered: CBC without Diff Comprehensive Metabolic Panel Lipid Panel* OV Est Pt Level 4 - 34951 - 25 min Urinalysis with Microscopic if Indicated 5. Vitamin D Deficiency Continue current medications and treatments. Pros/cons/side effects/alternatives and complications reviewed in detail. Ordered: 25-Hydroxyvitamin D2 and D3-[place] 25HDN OV Est Pt Level 4 - 65011 - 25 min Orders: Schedule Procedure Colonoscopy Electronically Signed By: TEA GIVENS MD On: 06/25/2016 09:04 AM Source: [facility] POWERCHART Document Id: [id number] RUG CLEANER documented in this encounter Miscellaneous Notes Telephone Encounter - Conversion, Historical Provider Ser - 07/01/2016 2:20 PM CST *Phone Message Document Contains Addenda Addendum by EVERTON GARCIA LPN on July 01, 2016 14:35:52 HAND RUG CLEANER Patient aware of results and wanted to discuss lab results. 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 Givens.He wants a call back at [phone] Message: Advice/Action: Source used: ( ) Verbalizes [...] back cell phone number ( ) Source: [facility] POWERCHART Document Id: [id number] Miscellaneous - Tea Givens M.D. - 06/27/2016 7:47 PM CST Normal Results Letter June 27, 2016 RYLEY VINES [address] [place] [address] [id number] Dear RYLEY VINES, I am pleased to [...] 03/24/2015 150 - 450 Sincerely, TEA GIVENS [address] [place] [phone] Electronic Signature Electronically Signed By: TEA GIVENS MD On: June 27, 2016 This document has images extracted. Source: [facility] POWERCHART Document Id: [id number] Electronically signed by Cheryl [facility] Insulation Cutter [id number] at 10/15/2016 1:01 AM CDT Miscellaneous - Tea Givens M.D. - 06/27/2016 7:44 PM CST Addendum by WOJCIECH ELDRIDGE LPN on June 28, 2016 10:39:27 HAND RUG CLEANER Left a detailed message with the below information. From: TEA GIVENS MD To: [facility] Nurse Rod[facility]; Sent: 06/27/2016 19:44:44 HAND RUG CLEANER Call, Labs look good, except his liver enzymes are elevated. I recommend US of the liver to evaluatethis further. He shouldn't worry about this much, as there are a lot of reasons for elevated liver enzymes. I put an order for US of the liver. Source: [facility] POWERCHART Document Id: [id number] Electronically signed by Conversion, [facility] Insulation Cutter [id number] at 10/15/2016 1:01 AM CDT Miscellaneous - Tea Givens M.D. - 06/25/2016 8:59 AM CST Ambulatory Patient Summary [address] [place] [id number] Visit Information Name: RYLEY VINES [facility] Number: [id number] Current Date: 06/25/2016 08:59:16 Physicians Attending Provider: TEA GIVENS MD Primary Care Provider: PCP, MAKENZIE RYLEY VINES [...] needed for Chest Pain New Routed to [address] [place] [address] omeprazole (Prilosec 20 mg oral delayed release [...] of Hemorrhage) Active Coronary Artery Disease (CAD) [place] Vessel Active Your Upcoming Appointments Date Time [...] if you dont have one. Go to [email or web address] and click on Create Your Account. Then, follow the directions to complete the online form. Youll be asked for your [facility] number which you can find at the top of this document. Your Goals/Additional instructions: Source: [facility] POWERCHART Document Id: [id number] RUG CLEANER Miscellaneous - Tea Givens M.D. - 06/25/2016 8:59 AM CST Ambulatory Discharge Medication List [address] [place] [id number] Visit Information Name: RYLEY VINSE [facility] Number: [id number] Current Date: 06/25/2016 08:59:15 Attending Provider: TEA GIVENS MD Primary Care Provider: PCP, MAKENZIE RYLEY VINES [...] needed for Chest Pain New Routed to [address] [place] [address] omeprazole (Prilosec 20 mg oral delayed release [...] MD Signed On:25-JUN-2016 08:59:12 Additional Information: Source: [facility] POWERCHART Document Id: [id number] RUG CLEANER Miscellaneous - Everton Garcia L.P.N. - 06/25/2016 8:20 AM CST Adult Kaiako Kura [place] Intake/History Adult [place]ako [place] Intake/History Entered On: 06/25/2016 8:25 HAND RUG CLEANER Performed On: 06/25/2016 8:20 HAND RUG CLEANER by EVERTON GARCIA LPN Intake Chief Complaint [...] kg/m2 EVERTON GARCIA LPN - 06/25/2016 8:20 HAND RUG CLEANER General Info Information Given By : Patient Languages : Sami Is Patient Female and 13-50 no hysterectomy : No EVERTON GARCIA LPN - 06/25/2016 8:20 HAND RUG CLEANER Subjective Pain Symptoms : No EVERTON GARCIA LPN - 06/25/2016 8:20 HAND RUG CLEANER Dependent Habits Exposure to Tobacco Smoke : Other: former Smoking Status : Former smoker Tobacco 2A : Yes Tobacco Use/Currently Using : No Tobacco Use/Last 30 Days : No Tobacco Use/Last 12 months : No EVERTON GARCIA LPN - 06/25/2016 8:20 HAND RUG CLEANER Caffeine Use Grid Caffeine Use : Current Type : Coffee Frequency : Daily EVERTON GARCIA LPN - 06/25/2016 8:20 HAND RUG CLEANER Source: [facility] POWERCHART Document Id: [id number] HAND RUG CLEANER!35 RUG CLEANER documented in this encounter Plan of Treatment Not on filedocumented as of this encounter Procedures Procedure Name Priority Date/Time Associated Comments Diagnosis URINALYSIS, ROUTINE Routine 06/25/2016 9:35 AM Re sults for this HAND RUG CLEANER procedure are i n the results section. URINE MICROSCOPIC Routine 06/25/2016 9:35 AM Resu lts for this HAND RUG CLEANER procedure are i n the results section. LIPID PANEL, S Routine 06/25/2016 9:09 AM Results for this HAND RUG CLEANER procedure are i n the results section. 25-HYDROXYVITAMIN D2 Routine 06/25/2016 9:09 AM R esults for this AND D3, S HAND RUG CLEANER procedure are i n the results section. CBC WITHOUT Routine 06/25/2016 9:09 AM Results f or this DIFFERENTIAL, B HAND RUG CLEANER procedure ar e in the results section. COMPREHENSIVE Routine 06/25/2016 9:09 AM Results for this METABOLIC PANEL, S/P HAND RUG CLEANER procedu re are in the results section. ECG Routine 06/25/2016 9:01 AM Results f or this HAND RUG CLEANER procedure are i n the results section. documented in this encounter Results Urine Microscopic (06/25/2016 9:35 AM HAND RUG CLEANER) athologist Signature HXUR WBC. Occ-3 HPF POWERCHART HXUR RBC. Occ-2 HPF POWERCHART Squamous Occ-3 HPF POWERCHART Epithelial Specimen Anatomical Collection Method Collection Time Receive d Time (Source) Location / / Volume Laterality Urine, First 06/25/2016 9:35 AM 7 9:35 Voided HAND RUG CLEANER AM HAND RUG CLEANER Tea Givens M.D., Ph.D. LAB URINE ORDERABLES Performing Organization Address City/State/ZIP Code Phon e Number POWERCHART (ABNORMAL) Urinalysis, Routine (06/25/2016 9:35 AM HAND RUG CLEANER) athologist Signature Clarity Clear Clear POWERCHART HXUr Color Yellow Colorless POWERCHART Specific 1.015 POWERCHART [place], POCT, U Comment: Reference Range Specific [place]: 1.000-1.035 pH, POCT, Urine 5.5 <5.0 POWERCHART [...] Laterality Urine, First 06/25/2016 9:35 AM Voided HAND RUG CLEANER Tea Givens M.D., Ph.D. LAB URINE ORDERABLES Performing Organization Address City/[facility]/ZIP Code Phon e Number POWERCHART CBC without Differential (06/25/2016 9:09 AM HAND RUG CLEANER) P athologist Signature Leukocytes 6.6 3.5 - 10.5 POWERCHART X109L Erythrocytes 5.09 4.32 - 5.72 POWERCHART Q2673X Hemoglobin 15.4 13.5 - 17.5 POWERCHART GDL Hematocrit 46.4 38.8 - 50.0 POWERCHART MCV 91.2 81.2 - 95.1 POWERCHART FL HX RDW 14.1 11.8 - 15.6 POWERCHART Platelet Count 208 150 - 450 POWERCHART X109L Specimen (Source) Anatomical Collection Method Collection Time Re ceived Time Location / / Volume Laterality Blood 06/25/2016 9:09 AM HAND RUG CLEANER Tea Givens M.D., Ph.D. LAB BLOOD ADD-ON Performing Organization Address City/[facility] Phon e Number POWERCHART Lipid Panel (06/25/2016 9:09 AM HAND RUG CLEANER) P athologist Signature Cholesterol, 176 <=199 MGDL [...] esting for FH and FDB is available throu [facility]: FH/ADH Genetic Reflex Mcmahan el (test ADHP). Acquired (non-genetic) causes of markedly increased LDL cholesterol include cholestatic liver disease due to the presence of LpX. If a genetic form of hypercholesterolemia is suspected, family studies including biochemical testing fo r lipids (total cholesterol,triglycerides, LDL cholesterol and HDL cholesterol) are recommended. ??Please contact the laboratory at or the on-line test catalog at [facility] for information about how to order these rachael ts or to speak with a genetic counselor. Further interpretation would require clinical information. Total Cholesterol/HDL Ratio 3 PO WERCHART Specimen (Source) Anatomical Collection Method Collection Time Re ceived Time Location / / Volume Laterality Blood 06/25/2016 9:09 AM HAND RUG CLEANER Tea Givens M.D., Ph.D. LAB BLOOD ADD-ON Performing Organization Address City/State/ZIP Code Phon e Number POWERCHART (ABNORMAL) CMP (Comprehensive Metabolic Panel) (06/25/2016 9:09 AM HAND RUG CLEANER) Patholo gist Method Time Signature Alanine 67 (H) [...] 8 - 24 POWERCHART Nitrogen), S MGDL Creatinine 1.00 0.74 - POWERCHART 1.35 MGDL Calcium, Total, S 9.3 8.8 - POWERCHART 10.3 MGDL Anion Gap 15 10 - 20 POWERCHART MMOLL HXeGFR (MDRD) >60 >=60 POWERCHART [id number] 2 eGFR Black/ >60 >=60 POWERCHART [place] [id number] 2 Bilirubin, Total, S 1.2 <=1.2 POWERCHART MGDL Total Protein, S 7.6 6.3 - 7.9 POWERCHART GDL Glucose 109 70 - 139 POWERCHART MGDL Specimen (Source) Anatomical Collection Method Collection Time Re ceived Time Location / / Volume Laterality Blood 06/25/2016 9:09 AM HAND RUG CLEANER Tea Givens M.D., Ph.D. LAB BLOOD ADD-ON Performing Organization Address City/State/ZIP Code Phon e Number POWERCHART 25-Hydroxyvitamin D2 and D3 (06/25/2016 9:09 AM HAND RUG CLEANER) P athologist Signature HX25 HYDROXY D2 <4.0 NGML [...] and its performa nce characteristics determined by [facility] in a manner co nsistent with CLIA requirements. This test has not been jeremias ared or approved by the U.S. Food and Drug Administration. Test Performed by: [place] [address] Sizing Machine And Drier Operator: Coy Sherwood II, M.D., Ph.D. Specimen (Source) Anatomical Collection Method Collection Time Re ceived Time Location / / Volume Laterality Blood 06/25/2016 9:09 AM HAND RUG CLEANER Tea Givens M.D., Ph.D. LAB BLOOD ADD-ON Performing Organization Address City/State/ZIP Code Phon e Number POWERCHART ECG 12 Lead (06/25/2016 9:01 AM HAND RUG CLEANER) Specimen (Source) Anatomical Collection Method Collection Time Re ceived Time Location / / Volume Laterality 06/25/2016 9:01 AM HAND RUG CLEANER [facility] - 06/25/2016 9:01 AM HAND RUG CLEANER Test Reason : PREOP, CAD Blood Pressure [...] Organization Address City/State/ZIP Code Phon e Number [facility] [address] [place] [id number] documented in this encounter Visit Diagnoses Not on filedocumented in this encounter Additional Health Concerns Assessment Noted Time PHQ-9 Depression Total Score: 2 03/08/2015 11:16 AM CS T documented as of this encounter
--- OUTSIDE RECORDS SUMMARY | 2022-03-08 11:06 | XMS_ITS | Encounter Summary ---
:1940 Author Organization [facility] Address [address] [place] [address] Care Team Providers Name Role Phone Unavailable Primary Care Provider Unavailable Encounter Details Date Type Department Care Team Description 04/11/2017 Abstract Department of Family Medicine, Provider, Historical [facility], in [place], [place] [address] [place] [address] [facility] [phone] Social History Tobacco Use Types Packs/Day Years [...]
--- OUTSIDE RECORDS SUMMARY | 2022-03-08 11:06 | XMS_ITS | Encounter Summary ---
:1940 Author Organization [facility] Address [address] [place] [address] Care Team Providers Name Role Phone Unavailable Primary Care Provider Unavailable Reason for Visit Reason Comments Nausea Pt states he had onset of br ief chest pain and some nausea at 0600 this am denies pain on admission Encounter Details Date Type Department Care Team Description 04/01/2017 Emergency [place] [facility] Bharath Myers, Nausea And Vomiting (Primary Dx); Department M.D. [address] [place], [place] [phone] Social History Tobacco Use Types Packs/Day Years Used Date Smoking Tobacco: Former Smokeless Tobacco: Never Sex Assigned at Date Recorded Not on file documented as of this encounter Last Filed Vital Signs Vital Sign Reading Time Taken Comments Blood Pressure 118/68 04/01/2017 1:30 PM RECREATION PROFESSOR Pulse 74 04/01/2017 1:30 PM RECREATION PROFESSOR Temperature 37 ??C (98.6 ??F) 04/01/2017 1:39 PM RECREATION PROFESSOR Respiratory Rate - - Oxygen Saturation 92% 04/01/2017 1:30 PM RECREATION PROFESSOR Inhaled Oxygen Concentration - - Weight 69.2 kg (152 lb 8.9 oz) 04/01/2017 1:45 PM RECREATION PROFESSOR Height - - Body Mass Index 24.52 06/25/2016 8:20 AM RECREATION PROFESSOR documented in this encounter Discharge Instructions Discharge InstructionsBharath Myers M.D. - 04/01/2017 2:49 PM CST Please reseek care if you develop persistent vomiting and diarrhea and inability to tolerate oral intake. Please also seek care if you develop chest pain, shortness of breath, or persistent lightheadedness. EATION PROFESSOR AttachmentsThe following attachments cannot be sent through Care Everywhere. Nausea and Vomiting, Adult (French)Diarrhea, Adult, Lbax-cj-Rnvy (French) documented in this encounter Medications at Time [...] suggests that it was the tartrate formulation. khivggrikbtu-goryuurc-ubx Take 1 tablet by 0 06/0608/15/2018 ifrah [...] strength in upper and lower extremities. Normal akuf-xw-djei, tiavsg-nq-lllf, and rapid alternating movements. Normal gait. Skin: [...] this does not feel like his prior DE. EKG shows evidence of possible inferior infarct [...] arrhythmogenic right ventricular dysplasia, Brugada syndrome, HOCM, Btzas-Efkaujfte-Owcoj or QTC prolongation. 1501 Chest X-ray is [...] 04/01/17 1513 Bharath Myers M.D. 04/01/17 1613 EATION PROFESSOR documented in this encounter Plan of Treatment Not on filedocumented as of this encounter Procedures Procedure Name Priority Date/Time Associated Comments Diagnosis DX CHEST AP OR PA RAD - Semiurgent 04/01/2017 1:27 Res ults for this AND LATERAL 2 (Fast; most ED PM RECREATION PROFESSOR procedure ar e in VIEWS patients; some the results inpatients) section. HEPATIC FUNCTION STAT 04/01/2017 1:18 Results for this PANEL, S PM RECREATION PROFESSOR procedure are i n the results section. CBC WITH STAT 04/01/2017 1:18 Results for this DIFFERENTIAL, B PM RECREATION PROFESSOR procedure ar e in the results section. TROPONIN T, 5TH STAT 04/01/2017 1:18 Results f or this GEN, P PM RECREATION PROFESSOR procedure are i n the results section. LIPASE, S/P STAT 04/01/2017 1:18 Results for this PM RECREATION PROFESSOR procedure are i n the results section. LACTATE, B/P STAT 04/01/2017 1:18 Results for this PM RECREATION PROFESSOR procedure are i n the results section. BASIC METABOLIC STAT 04/01/2017 1:18 Results f or this PANEL, S/P PM RECREATION PROFESSOR procedure are i n the results section. ECG STAT 04/01/2017 1:01 Results for this PM RECREATION PROFESSOR procedure are i n the results section. documented in this encounter Results DX Chest AP or PA and Lateral 2 Views (04/01/2017 1:27 PM RECREATION PROFESSOR) Anatomical Region Laterality Modality Chest N/A Digital Radiography Specimen (Source) Anatomical Collection Method Collection Time Re ceived Time Location / / Volume Laterality 04/01/2017 1:42 PM RECREATION PROFESSOR Impressions 04/01/2017 1:43 PM RECREATION PROFESSOR IMPRESSION: Cardiac silhouette is not enlarged. No pneumothorax. No lung infiltrate. Right shoulder arthroplasty. Narrative 04/01/2017 1:43 PM RECREATION PROFESSOR EXAM: DX CHEST AP OR PA AND [...] PROCE PONCHO Troponin T (04/01/2017 1:18 PM RECREATION PROFESSOR) athologist Signature Troponin T, S <0.01 <0.01 ng/mL 04/01/2017 [facility] 1:56 PM RECREATION PROFESSOR [facility] Comment: Biotin has been identified by the [place] as a potential interfering substance. ??Higher concentr ations of biotin may be found in multivitamins, hair/nail supple ments, and workout supplements. ??If the result does not [facility] clinical observations, repeat testing after patient refrains fr om the use of supplements for at least 12 hours. Specimen Anatomical Collection Method Collection Time Receive d Time (Source) Location / / Volume Laterality Blood (Blood, 04/01/2017 1:18 PM 04/01/20 17 1:20 Venous) RECREATION PROFESSOR PM RECREATION PROFESSOR Bharath Myers M.D. LAB BLOOD ADD-ON Performing Organization Address City/[facility] Phon e Number [address] [address] [place] [facility] Lipase (04/01/2017 1:18 PM RECREATION PROFESSOR) athologist [facility] Lipase, S 21 13 - 60 U/L 04/01/2017 [facility] 1:56 PM [facility] Specimen Anatomical Collection Method Collection Time Receive d Time (Source) Location / / Volume Laterality Blood (Blood, 04/01/2017 1:18 PM 04/01/20 17 1:21 Venous) RECREATION PROFESSOR PM RECREATION PROFESSOR Bharath Myers M.D. LAB BLOOD ADD-ON Performing Organization Address [facility] Phon e Number [address] [address] [place] [facility] Lactate (04/01/2017 1:18 PM RECREATION PROFESSOR) athologist Signature Lactate, P 2.0 0.6 - 2.3 04/01/2017 [facility] mmol/L 1:36 PM RECREATION PROFESSOR [facility] Specimen Anatomical Collection Method Collection Time Receive d Time (Source) Location / / Volume Laterality Blood (Blood, 04/01/2017 1:18 PM 04/01/20 17 1:21 Venous) RECREATION PROFESSOR PM RECREATION PROFESSOR Bharath Myers M.D. LAB BLOOD NON ADD-ON Performing Organization Address City/State/ZIP Code Phon e Number [facility]- [address] [place] [address] [place] [facility] (ABNORMAL) Hepatic Function Panel (04/01/2017 1:18 PM RECREATION PROFESSOR) Patholo gist Method Time Signature Bilirubin, Total, S 1.4 (H) <=1.2 04/01/2017 [facility] mg/dL 1:56 PM [facility] Bilirubin, Direct, S 0.2 0.0 - 0.3 04/01/2017 [facility] ANKITA mg/dL 1:56 PM [facility] Aspartate 45 8 - 48 04/01/2017 [facility] Aminotransferase U/L 1:57 PM [facility] Alanine 53 7 - 55 04/01/2017 [facility] Aminotransferase U/L 1:56 PM [facility] Alkaline 160 (H) 45 - 115 04/01/2017 [facility] Phosphatase, S U/L 1:56 PM [facility] Albumin, S 4.2 3.5 - 5.0 04/01/2017 [facility] g/dL 1:56 PM [facility] Protein, Total, S 6.7 6.3 - 7.9 04/01/2017 [facility] g/dL 1:56 PM [facility] Specimen Anatomical Collection Method Collection Time Receive d Time (Source) Location / / Volume Laterality Blood (Blood, 04/01/2017 1:18 PM 04/01/20 17 1:21 Venous) RECREATION PROFESSOR PM RECREATION PROFESSOR Bharath Myers M.D. LAB BLOOD ADD-ON Performing Organization Address City/State/ZIP Code Phon e Number [facility]- [address] [place] [address] [place] [facility] BMP (Basic Metabolic Panel) (04/01/2017 1:18 PM RECREATION PROFESSOR) P athologist Signature Potassium, S 4.2 3.6 - 5.2 04/01/2017 [facility] mmol/L 1:56 PM [facility] Sodium, S 143 135 - 145 04/01/2017 [facility] mmol/L 1:56 PM [facility] Chloride, S 102 98 - 107 04/01/2017 [facility] mmol/L 1:56 PM [facility] Bicarbonate, S 27 22 - 29 04/01/2017 [facility] mmol/L 1:56 PM [facility] Anion Gap 14 7 - 15 04/01/2017 [facility] 1:56 PM [facility] BUN (Blood Urea 9 8 - 24 04/01/2017 [facility] Nitrogen), S mg/dL 1:56 PM [facility] Creatinine 0.99 0.74 - 04/01/2017 [facility] 1.35 mg/dL 1:56 PM [facility] eGFR 74 >=60 04/01/2017 [facility] Non-Black/Afric mL/min/BSA 1:56 PM [facility] EM- an Moroccan [place] [facility] Comment: ----ADDITIONAL INFORMATION---- Estimated GFR calculated using the 2009 CKD_EPI creatinine equation. eGFR-Black/ 85 >=60 mL/min/BSA 2016 1:56 PM [facility] Comment: ----ADDITIONAL INFORMATION---- Estimated GFR calculated using the 2009 CKD_EPI creatinine equation. Calcium, Total, S 9.5 8.9 - 10.1 mg/dL 04/01/2017 1 :56 PM [facility] Glucose, S 123 70 - 140 mg/dL 04/01/2017 1:[address] [facility] Specimen Anatomical Collection Method Collection Time Receive d Time (Source) Location / / Volume Laterality Blood (Blood, 04/01/2017 1:18 PM 04/01/20 17 1:21 Venous) RECREATION PROFESSOR RECREATION PROFESSOR Bharath Myers M.D. LAB BLOOD ADD-ON Performing Organization Address City/State/ZIP Code Phon e Number [facility]- [id number] [address] [place] [facility] (ABNORMAL) CBC with Differential (04/01/2017 1:18 PM RECREATION PROFESSOR) [facility] gist Method Time Signature Hemoglobin 14.9 13.2 - 04/01/2017 [facility] 16.6 g/dL 1:28 PM [facility] Hematocrit 44.5 38.3 - 04/01/2017 [facility] 48.6 % 1:28 PM [facility] Erythrocytes 4.88 4.35 - 04/01/2017 [facility] 5.65 1:28 PM RECREATION PROFESSOR HEALTH x10(12)/L [facility] MCV 91.2 78.2 - 04/01/2017 [facility] 97.9 fL 1:28 PM [facility] RBC Distrib Width 13.6 11.8 - 04/01/2017 [facility] 14.5 % 1:28 PM [facility] Platelet Count 198 135 - 317 04/01/2017 [facility] x10(9)/L 1:28 PM [facility] Leukocytes 16.2 (H) 3.4 - 9.6 04/01/2017 [facility] x10(9)/L 1:28 PM [facility] [employer] [facility] Neutrophils 14.73 (H) 1.56 - 04/01/2017 [facility] 6.45 1:28 PM [facility] HEALTH x10(9)/L [facility] Lymphocytes 0.91 (L) 0.95 - 04/01/2017 [facility] 3.07 1:28 PM RECREATION PROFESSOR HEALTH x10(9)/[facility] Monocytes 0.54 0.26 - 04/01/2017 [facility] 0.81 1:28 PM RECREATION PROFESSOR HEALTH x10(9)/[facility] Eosinophils 0.01 (L) 0.03 - 04/01/2017 [facility] 0.48 1:28 PM RECREATION PROFESSOR HEALTH x10(9)/[facility] Basophils 0.02 0.01 - 04/01/2017 [facility] 0.08 1:28 PM [facility] HEALTH x10(9)/[facility] Specimen Anatomical Collection Method Collection Time Receive d Time (Source) Location / / Volume Laterality Blood (Blood, 04/01/2017 1:18 PM 04/01/20 17 1:20 Venous) RECREATION PROFESSOR PM RECREATION PROFESSOR Bharath Myers M.D. LAB BLOOD ADD-ON Performing Organization Address City/State/ZIP Code Phon e Number [facility]- [id number] [address] [place] [facility] ECG 12 Lead (04/01/2017 1:01 PM RECREATION PROFESSOR) [facility] gist Method Time Signature Ventricular 78 BPM MUSE Rate ECG/Min OH Interval 178 ms MUSE QRSD Interval 82 ms MUSE QT Interval 376 ms MUSE QTC Interval 428 ms MUSE P [place] 39 degrees MUSE R [place] -12 degrees MUSE T Wave [place] 20 degrees MUSE Clinical Normal sinus rhythm MUSE Diagnosis Cannot rule out Inferior infarct When compared with ECG of 25-JUN-2016 09:01, Vent. rate has increased BY ??29 BPM Minimal criteria for Inferior infarct are now present Specimen Anatomical Collection Method Collection Time Receive d Time (Source) Location / / Volume Laterality 04/01/2017 1:01 PM 7 1:11 RECREATION PROFESSOR PM RECREATION PROFESSOR Narrative This result has an attachment that [...] 1,000 mL New Bag 04/01/2017 1:32 PM RECREATION PROFESSOR 1,000 mL 1,000 mL, intravenous, Once, On 04/01/17 at 1325, For 1 dose documented in this encounter Active and Recently Administered Medications Times are shown in RECREATION PROFESSOR. Scheduled Medication Order 03/30/2017 03/31/2017 04/01/2017 NaCl [...]
--- OUTSIDE RECORDS SUMMARY | 2022-03-08 11:06 | XMS_ITS | Encounter Summary ---
:1940 Author Organization [facility] Address [address] [place] [address] Care Team Providers Name Role Phone Unavailable Primary Care Provider Unavailable Encounter Details Date Type Department Care Team Description 08/08/2017 Abstract Department of Family Medicine, Provider, Historical [facility], in [place], [place] [address] [place] [address] Social History Tobacco Use Types Packs/Day [...]
--- OUTSIDE RECORDS SUMMARY | 2022-03-08 11:07 | XMS_ITS | Encounter Summary ---
:1940 Author Organization [facility] Address [address] [place] [address] Care Team Providers Name Role Phone Unavailable Primary Care Provider Unavailable Encounter Details Date Type Department Care Team Description 01/29/2012 Hospital Encounter HX [facility] Paulette Pittman D, P.A.-C. [...] Aydin Pittman - 01/29/2012 3:30 PM CDT [id number] SUBJECTIVE: F body Rt Ear today From hearing aid OBJECTIVE: saame ASSESSMENT 1. Foreign body in ear Plan;removed without Problem, rubber tip Tm ok canal ok [facility] Document Id: [id number] Electronically signed by Conversion, [facility] Manager Professional Development [id number] at 10/05/2016 4:46 PM CDT documented in this encounter Plan of Treatment Not on filedocumented as of this encounter Visit Diagnoses Not on filedocumented in this encounter
--- OUTSIDE RECORDS SUMMARY | 2022-03-08 11:07 | XMS_ITS | Encounter Summary ---
:1940 Author Organization [facility] Address [address] [place] [address] Care Team Providers Name Role Phone Unavailable Primary Care Provider Unavailable Encounter Details Date Type Department Care Team Description 01/09/2010 Hospital Encounter HX [facility] Delbert Almaguer M.D. [address] [place], [place] [address] (Wo rk) Social History [...] Almaguer M.D. - 01/09/2010 12:00 AM CDT [id number] IMPRESSION / REPORT / PLAN Cerumen impaction [...] felt that [facility] and so he did that and [...] ALMAGUER MD On 01/15/2010 08:32 AM Source: [facility] MHSDOLBEYNONRADSYS Document Id: [id number] documented in this encounter Nursing Notes Conversion, Historical Provider Ser - 01/11/2010 11:50 AM CDT Pt is scheduled for a colonoscopy on January 31 at 815am at [address] A message was left for the pt to call clinic for information Electronically Signed By:TIEN ELLIS On 01/11/2010 11:51 am Source: [facility] [employer] Document Id: [id number] documented in this encounter Miscellaneous Notes Miscellaneous - Tj Almaguer M.D. - 01/09/2010 2:40 PM CDT General Message From: TJ ALMAGUER MD Sent: 01/09/2010 14:40:41 CDT Subject: General Message Please schedule followup colonoscopy, history polyps X 2 in 2003. [place]. Source: [facility] POWERCHART Document Id: [id number] Electronically signed by Conversion, [facility] Sheet Metal Welder [id number] at 10/07/2016 1:31 AM CDT Miscellaneous - Conversion, Historical Provider Ser - 01/09/2010 1:57 PM CDT Adult Talent Director Intake/History Adult Talent Director Intake/History Entered On: 01/09/2010 14:00 CDT Performed [...] ELLIS - 01/09/2010 13:57 CDT Allergies [facility] POWERCHART Document Id: [id number] CDT!22 documented in this encounter Plan of Treatment Not on filedocumented as of this encounter Visit Diagnoses Not on filedocumented in this encounter
--- OUTSIDE RECORDS SUMMARY | 2022-03-08 11:07 | XMS_ITS | Encounter Summary ---
:1940 Author Organization [facility] Address [address] [place] [address] Care Team Providers Name Role Phone Unavailable Primary Care Provider Unavailable Encounter Details Date Type Department Care Team Description 06/23/2006 - Hospital Encounter HX [facility]ERM SURG OP Lorena Fiore M.D. 06/30/2006 [facility] [address] [id number] (Wo rk) Social History Tobacco Use Types Packs/Day Years Used Date Smoking Tobacco: Never Assessed Sex Assigned at Date Recorded Not on file documented as of this encounter Plan of Treatment Not on filedocumented as of this encounter Visit Diagnoses Not on filedocumented in this encounter
--- OUTSIDE RECORDS SUMMARY | 2022-03-08 11:07 | XMS_ITS | Encounter Summary ---
:1940 Author Organization [facility] Address [address] [place] [address] Care Team Providers Name Role Phone Unavailable Primary Care Provider Unavailable Encounter Details Date Type Department Care Team Description 02/08/2015 Hospital [facility] Rodger Miranda M.D. [address] [place], [place] [phone] (Wo rk) Social History [...] Dodson M.D. - 02/08/2015 10:53 AM CDT [id number] CHIEF COMPLAINT/REASON FOR VISIT Right shoulder pain [...] DODSON MD On: 02/08/2015 09:02 PM Source: [facility] MHSDOLBEYNONRADSYS Document Id: [id number] documented in this encounter Miscellaneous Notes Miscellaneous - Yovana Shelton, L.P.N. - 02/08/2015 12:40 PM CDT Ortho surgery letter From: YOVANA SHELTON LPN ( Orthopedic Nurse) To: [facility] Surgical Services; [facility] Surgery Nurse Operations Representative; Surgery Supervisor Fleshing; Sent: 02/08/2015 12:40:03 CDT Subject: Ortho surgery letter [facility] Surgery Clinic Checklist Patient Contact Number: [phone] Surgeon: Geremias Surgical Service: (x) Orthopedics (_) [...] Other Pre-op MD: pt will schedule in [place] Post-Op Appt:(time frame when to return) 10-14 [...] Yes X-Ray Location (if not done in [facility]): 02/08/15 CPM Post-op: (_) No (_) Yes- please make sure MD places order If Total Joint Case: Type of Prosthesis: Lisa reverse components Additional equipment: _ Has other side been done: (x) No (_) Yes Source: [facility] POWERCHART Document Id: [id number] Miscellaneous - Ana Rosa Dodson M.D. - 02/08/2015 11:53 AM CDT Ambulatory Patient Summary [facility] [address], [address] [place], [place] [phone] Visit Information Name: SACHINRYLEY Soares [facility] Number: [id number] Current Date: 02/08/2015 11:53:30 Physicians [...] you dont have one. Go to [email or web address] and click on Create Your Account. Then, follow the directions to complete the online form. Youll be asked for your [facility] number which you can find at the top of this document. Your Goals/Additional instructions: Source: [facility] POWERCHART Document Id: [id number] Miscellaneous - Ana Rosa Dodson M.D. - 02/08/2015 11:53 AM CDT Ambulatory Discharge Medication List [address] [place], [place] [phone] Visit Information Name: RYLEY VINES [facility] Number: [id number] Visit Date: 02/08/2015 11:53:30 Attending [...] MD Signed On:08-FEB-2015 11:53:26 Additional Information: Source: [employer] Document Id: [id number] Miscellaneous - Bashir Hutton, C.M.ALara - 02/08/2015 11:03 AM CDT Adult Hanger Off Intake/History Adult Hanger Off Intake/History Entered On: 02/08/2015 11:03 CDT Performed [...] BASHIR HUTTON - 02/08/2015 11:03 CDT Source: [employer] Document Id: [id number] CDT!22 documented in this encounter Plan of Treatment Not on filedocumented as of this encounter Visit Diagnoses Not on filedocumented in this encounter
--- OUTSIDE RECORDS SUMMARY | 2022-03-08 11:07 | XMS_ITS | Encounter Summary ---
:1940 Author Organization [facility] Address [address] [place] [address] Care Team Providers Name Role Phone Unavailable Primary Care Provider Unavailable Encounter Details Date Type Department Care Team Description 02/16/2016 Hospital Encounter [facility]X [facility] Rodger Miranda M.D. [address] [place], [place] [phone] (Wo rk) Social History [...] Duenas M.D. - 02/16/2016 8:29 AM CDT [id number] CHIEF COMPLAINT/REASON FOR VISIT Follow up status [...] DUENAS MD On: 02/19/2016 07:40 AM Source: [facility] MHSDOLBEYNONRADSYS Document Id: [id number] documented in this encounter Miscellaneous Notes Miscellaneous - Marv Duenas M.D. - 02/16/2016 9:19 AM CDT Ambulatory Patient Summary [facility] [address], [address] [place] [phone] Visit Information Name: RYLEY VINES [facility] Number: [id number] Current Date: 02/16/2016 09:19:18 [...] if you dont have one. Go to [email or web address] and click on Create Your Account. Then, follow the directions to complete the online form. Youll be asked for your [facility] number which you can find at the top of this document. Your Goals/Additional instructions: Source: [facility] POWERCHART Document Id: [id number] Miscellaneous - Marv Duenas M.D. - 02/16/2016 9:19 AM CDT Ambulatory Discharge Medication List [facility] [address], [address] [place], [place] [phone] Visit Information Name: RYLEY VINES [facility] Number: [id number] Current Date: 02/16/2016 09:19:18 [...] MD Signed On:16-FEB-2016 09:19:16 Additional Information: Source: [facility] POWERCHART Document Id: [id number] Miscellaneous - Colleen Sarabia L.P.N. - 02/16/2016 8:46 AM CDT Adult Automobile Insurance Claim Examiner Intake/History Adult Automobile Insurance Claim Examiner Intake/History Entered On: 02/16/2016 8:47 CDT Performed On: 02/16/2016 8:46 CDT by COLLEEN SARABIA LPN Intake Chief Complaint : Pt here for frc on rgiht TSA COLLEEN SARABIA LPN - 02/16/2016 8:46 CDT General Info Information Given By : Patient Languages : Rwandan Is Patient Female and 13-50 no hysterectomy [...] SARABIA LPN - 02/16/2016 8:46 CDT Source: [employer] Document Id: [id number] CDT!21 documented in this encounter Plan of Treatment Not on filedocumented as of this encounter Visit Diagnoses Not on filedocumented in this encounter Additional Health Concerns Assessment Noted Time PHQ-9 Depression Total Score: 2 03/08/2015 11:16 AM CS T documented as of this encounter
--- OUTSIDE RECORDS SUMMARY | 2022-03-08 11:07 | XMS_ITS | Encounter Summary ---
:1940 Author Organization [facility] Address [address] [place] [address] Care Team Providers Name Role Phone Unavailable [...]
--- OUTSIDE RECORDS SUMMARY | 2022-03-08 11:07 | XMS_ITS | Encounter Summary ---
:1940 Author Organization [facility] Address [address] [place] [address] Care Team Providers Name Role Phone Unavailable [...]
--- OUTSIDE RECORDS SUMMARY | 2022-03-08 11:07 | XMS_ITS | Encounter Summary ---
:1940 Author Organization [facility] Address [address] [place] [address] Care Team Providers Name Role Phone Unavailable Primary Care Provider Unavailable Encounter Details Date Type Department Care Team Description 08/08/2015 Hospital Encounter HX [facility] ENT Maggie Osborne M.D. [address] [place], [place] [phone] (Wo rk) Social History [...] Osborne M.D. - 08/08/2015 8:04 AM CDT [id number] Mr. Vines is a pleasant 75-year-old gentleman. CHIEF COMPLAINT/REASON FOR VISIT Blood in ear canals, consult at the request of Laila Loco CNP, [facility]. HISTORY OF PRESENT ILLNESS Mr. Vines reports recently he was noted to have blood in both ears. He was told they look different. He had a history of cerumen impaction which is typically uneventfully debrided at [facility]. He said recently he used a toothpick [...] history. SOCIAL HISTORY No tobacco. 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 PHYSICAL EXAMINATION GENERAL: He appears well. No [...] otherwise. Maggie Osborne M.D./dirk cc: Laila Loco, RECREATIONAL ASSISTANT, GAS PUMP ATTENDANT [facility] [address] [place] [address] Electronically Signed By: MAGGIE OSBORNE MD On: 08/15/2015 07:59 AM Source: [facility] MHSDOLBEYNONRADSYS Document Id: [id number] documented in this encounter Miscellaneous Notes Miscellaneous - Maggie Osborne M.D. - 08/08/2015 9:11 AM CDT Ambulatory Patient Summary [facility] [address] [place], [address] [place], [place] [id number] Visit Information Name: RYLEY VINES [facility] Number: [id number] Current Date: 08/08/2015 09:11:13 Physicians [...] if you dont have one. Go to [email or web address] and click on Create Your Account. Then, follow the directions to complete the online form. Youll be asked for your [facility] number which you can find at the top of this document. Your Goals/Additional instructions: Source: [facility] POWERCHART Document Id: [id number] Miscellaneous - Maggie Osborne M.D. - 08/08/2015 9:11 AM CDT Ambulatory Discharge Medication List [facility] [address] [place], [address] [place], [place] [phone] Visit Information Name: RYLEY VINES [facility] Number: [id number] Visit Date: 08/08/2015 09:11:13 Attending [...] MD Signed On:08-AUG-2015 09:10:58 Additional Information: Source: [facility] DDStocksCHART Document Id: [id number] Miscellaneous - Kami Redmond, C.M.ALara - 08/08/2015 8:19 AM CDT Adult Copy Technician Intake/History Adult Copy Technician Intake/History Entered On: 08/08/2015 8:19 CDT Performed On: 08/08/2015 8:19 CDT by KAMI REDMOND [facility] Intake Temperature Core : 36.5 DegC(Converted to: 97.7 DegF) Peripheral Pulse Rate : 62 /min Systolic Blood Pressure : 121 mmHg Diastolic Blood Pressure : 71 mmHg NIBP Mean : 88 mmHg KAMI REDMOND [facility] - 08/08/2015 8:22 CDT Chief Complaint : blood in both ear canals KAMI REDMOND [facility] - 08/08/2015 8:19 CDT General Info Information Given By : Patient Preferred Communication Mode : Verbal Languages : Chinese Is Patient Female and 13-50 no hysterectomy : No KAMI REDMOND [facility] - 08/08/2015 8:19 CDT Subjective Pain Symptoms : No KAMI REDMOND [facility] - 08/08/2015 8:19 CDT Dependent Habits Exposure to Tobacco Smoke : Other: former Smoking Status : Former smoker Tobacco 2A : Yes Tobacco Use/Currently Using : No Tobacco Use/Last 30 Days : No Tobacco Use/Last 12 months : No KAMI REDMOND [facility] - 08/08/2015 8:19 CDT Caffeine Use Grid Caffeine Use : Current Type : Coffee Frequency : Daily KAMI REDMOND [facility] - 08/08/2015 8:19 CDT Source: [facility] Bouncefootball Document Id: [id number] CDT!7 documented in this encounter Plan of Treatment Not on filedocumented as of this encounter Visit Diagnoses Not on filedocumented in this encounter Additional Health Concerns Assessment Noted Time PHQ-9 Depression Total Score: 2 03/08/2015 11:16 AM CS T documented as of this encounter
--- OUTSIDE RECORDS SUMMARY | 2022-03-08 11:07 | XMS_ITS | Encounter Summary ---
:1940 Author Organization [facility] Address [address] [place] [address] Care Team Providers Name Role Phone Unavailable Primary Care Provider Unavailable Encounter Details Date Type Department Care Team Description 03/08/2015 Hospital Encounter HX [facility] Oh Lynch M.D. [address] [place] [phone] (Wo rk) Social History Tobacco [...] CST PHQ-9 PHQ-9 Entered On: 03/08/2015 11:16 BULLET SWAGING MACHINE OPERATOR Performed On: 03/08/2015 11:16 BULLET SWAGING MACHINE OPERATOR by KEI GONZALEZ RN PHQ-9 Little interest [...] 2 KEI GONZALEZ RN - 03/08/2015 11:16 BULLET SWAGING MACHINE OPERATOR Source: [employer] [place] Document Id: [id number] BULLET SWAGING MACHINE OPERATOR!12 ET SWAGING MACHINE OPERATOR Miscellaneous - Kei Gonzalez R.N. - 03/08/2015 10:55 AM CST Geremias 03/23/15 From: KEI GONZALEZ RN ([facility] Surgery Nurse Hotel General Manager) To: Anesthesia; Sent: 03/08/2015 10:55:18 BULLET SWAGING MACHINE OPERATOR Subject: Geremias 03/23/15 SURGERY NURSE AIRPORT MANAGER Skin Alert Assessment: Complete this section only [...] Yes Comment: _ Do you have any presybeterian or other objection to having a blood transfusion? (x)No (_)Yes Scheduling Follow-Up: Loom Changer requested: (x) N/A (_) Yes Comment: _ [...] then no styling products in the hair. -racecar driver required for same day surgery patients, [...] planners, completed PHQ 9 and gave patient [facility] Shoulder Replcement Surgery, Patient Education (_)Reviewed parental presence program (_)Reviewed tonsillectomy teaching sheet (_)Reviewed ear tube teaching sheet (_)Pre op PT appt (total shoulders only) Post op appointments: 1st po with surgeon or physician assistant art director: (x) made (_)TBD (_)Audiology appointment (PE tubes), (_)2 days post op ultrasound to r/o DVT (VNUS closure), (_)PO OT appt made (Hand surgery if requested) Source: [facility] POWERCHART Document Id: [id number] Electronically signed by Conversion, [facility] Planting Material Remover [id number] at 09/30/2016 8:33 AM CDT documented in this encounter Plan of Treatment Not on filedocumented as of this encounter Visit Diagnoses Not on filedocumented in this encounter Additional Health Concerns Assessment Noted Time PHQ-9 Depression Total Score: 2 03/08/2015 11:16 AM CS T documented as of this encounter
--- OUTSIDE RECORDS SUMMARY | 2022-03-08 11:07 | XMS_ITS | Encounter Summary ---
:1940 Author Organization [facility] Address [address] [place] [address] Care Team Providers Name Role Phone Unavailable [...] PM 0 1:00 CDT PM CDT Narrative [facility] - 08/21/1999 1:00 PM CDT [id number] Surgical Pathology Requested By: ? Klaus Gonzalez M.D. ? ([id number]) ?? TISSUE DESCRIPTION: ?? Tissue from the left carotid artery (2.5 x 0.9 x 0.7 cm) ?? DIAGNOSIS: ?? Plaque, left carotid artery, excisio n: ??Segment of atheromatous plaque identified. ?? [id number] ?Tonya Lee M.D.:mgs Procedure Note 07/26/2017 [id number] Surgical Pathology Requested By: Klaus Gonzalez M.D. ( [id number]) TISSUE DESCRIPTION: Tissue from the left carotid artery (2. 5 x 0.9 x 0.7 cm) DIAGNOSIS: Plaque, left carotid artery, excision: Segment of atheromatous plaque identified. [id number] Tonya Lee M.D.:s Klaus Gonzalez M.D. LAB PATHOLOGY/CYTOLOGY ORDER VALDEZ Performing Organization Address City/State/ZIP Code Phon e Number [facility] - [address] [place], [place] [address] [facility] EEG routine - awake and sleep (08/21/1999 12:36 PM CDT) Specimen (Source) Anatomical Collection Method Collection Time Re ceived Time Location / / Volume Laterality 08/21/1999 12:36 PM CDT Narrative [facility] - 08/21/1999 12:36 PM CDT ?? Final Report ? El ectroencephalography ?? Referring Physician: ??Carlos ??[id number] [phone] ? Date: ??21 Aug 1999 ?? EEG Fire Loss Prevention Engineer: ? Rolf Giordano on 15 ?? Clinical Problem: ? Left carotid endarterectomy [...] no change with occlusion o r following caodaism of flow. Rolf Ott ?melchor (Signature date Aug 1999 13:58) Procedure Note Provider, Historical - 08/18/2017Formatt ing of this note might be different from the original. Final Report Electroencephalography Referring Physician: [id number] Date : 21 Aug 1999 EEG Fire Loss Prevention Engineer: Rolf Ott [id number] Clinical Problem: Left carotid endarter ectomy CLINICAL [...] no change with occlusion or f ollowing caodaism of flow. Rolf roche (Signature date Aug 1999 13:58) Historical Provider NEUROLOGY ORDERABLES Performing Organization Address City/State/ZIP Code Phon e Number HX [facility] [address] [place] [address], U SA US Carotid (08/20/1999 9:19 AM CDT) Anatomical Region Laterality Modality Ultrasound Specimen (Source) Anatomical Collection Method Collection Time Re ceived Time Location / / Volume Laterality 08/20/1999 9:19 AM CDT Narrative 08/20/1999 11:27 AM CDT 20-Aug-1999 09:19:00 ??Exam: US Carotid Arteries Complete Indications: tia ? [id number] ??cart ORIGINAL REPORT - 20-Aug-1999 11:27:00 VELOCITIES [...] I:510.555; D:512.585 Electronically signed by: ?? Fernanda ??oCnnor ??Marisela [id number] 20-Aug-1999 11:27 Procedure Note Tonio Ryan M.D. - 08/11/2017Forma tting of this note might be different from the original. 20-Aug-1999 09:19:00 Exam: US Carotid Ar teries Complete Indications: tia [id number] cart ORIGINAL REPORT - 20-Aug-1999 11:27:00 VELOCITIES [...] negative. Electronically signed by: Elisha Covarrubias MD. [id number] 18-Aug-1999 14:1 3 Severiano Mayfield M.D. IMG [...] Address City/State/ZIP Code Phon e Number HX [facility] [address] [place] [address], [place] CT Head without IV Contrast (08/18/1999 12:22 PM CDT) Anatomical Region Laterality Modality Head N/A Computed Tomography Specimen (Source) Anatomical Collection Method Collection Time Re ceived Time Location / / Volume Laterality 08/18/1999 12:22 PM CDT Narrative 08/19/1999 9:01 AM CDT 18-Aug-1999 12:22:00 ??Exam: CT Head wo Indications: TIA REVISED REPORT - 19-Aug-1999 09:01:00 Revised 08/19/1999 09:00:15 ([id number]) ??CT scan of the head without contrast is negative. No hemorrhage or mass effect. IND [id number] ??DX ??180.120 Electronically signed by: ?? Reno Bran MD. ??[id number] 19-Aug-1999 0 9:01 Procedure Note Akilah Bran M.D. - 08/11/2017F ormatting of this note might be different from the original. 18-Aug-1999 12:22:00 Exam: CT Head wo Indications: TIA REVISED REPORT - 19-Aug-1999 09:01:00 Revised 08/19/1999 09:00:15 ([id number]) CT scan of the head without c ontrast is negative. No hemorrhage or mass effect. IND 101.5424 DX 180.120 Electronically signed by: Reno Bran MD. [id number] 19-Aug-1999 09: 01 Severiano Mayfield M.D. IMJulienne CT PROCEDURES documented in this encounter Visit Diagnoses Not on filedocumented in this encounter
--- OUTSIDE RECORDS SUMMARY | 2022-03-08 11:07 | XMS_ITS | Encounter Summary ---
:1940 Author Organization [facility] Address [address] [place] [address] Care Team Providers Name Role Phone Unavailable Primary Care Provider Unavailable Encounter Details Date Type Department Care Team Description 04/07/2015 Hospital Encounter HX [facility] Rodger Miranda M.D. [address] [place], [place] [phone] (Wo rk) Social History [...] Duenas M.D. - 04/07/2015 8:32 AM CST [id number] CHIEF COMPLAINT/REASON FOR VISIT Follow up right [...] DUENAS MD On: 04/07/2015 12:30 PM Source: [facility] MHSDOLBEYNONRADSYS Document Id: [id number] ARCH PROFESSOR documented in this encounter Miscellaneous Notes Miscellaneous - Marv Duenas M.D. - 04/07/2015 8:57 AM CST Ambulatory Patient Summary [facility] [address], [address] [place] [phone] Visit Information Name: RYLEY VINES [facility] Number: [id number] Current Date: 04/07/2015 08:57:05 Physicians [...] you dont have one. Go to [email or web address] and click on Create Your Account. Then, follow the directions to complete the online form. Youll be asked for your [facility] number which you can find at the top of this document. Your Goals/Additional instructions: Source: [facility] POWERCHART Document Id: [id number] ARCH PROFESSOR Miscellaneous - Marv Duenas M.D. - 04/07/2015 8:57 AM CST Ambulatory Discharge Medication List [facility] [address], [address] [place], [place] [phone] Visit Information Name: RYLEY VINES [facility] Number: [id number] Visit Date: 04/07/2015 08:57:04 Attending [...] MD Signed On:07-APR-2015 08:56:51 Additional Information: Source: [facility] POWERCHART Document Id: [id number] ARCH PROFESSOR Miscellaneous - Brodie Nielsen, L.P.N. - 04/07/2015 8:43 AM CST Adult Automotive Starter Repairer Intake/History Adult Automotive Starter Repairer Intake/History Entered On: 04/07/2015 8:43 RESEARCH PROFESSOR Performed On: 04/07/2015 8:43 RESEARCH PROFESSOR by BRODIE NIELSEN LPN Intake Chief Complaint : po rigfht shoulder BRODIE NIELSEN LPN - 04/07/2015 8:43 RESEARCH PROFESSOR General Info Information Given By : Patient Languages : Slovenian Is Patient Female and 13-50 no hysterectomy : No BRODIE NIELSEN LPN - 04/07/2015 8:43 RESEARCH PROFESSOR Subjective Pain Symptoms : No BRODIE NIELSEN LPN - 04/07/2015 8:43 RESEARCH PROFESSOR Dependent Habits Exposure to Tobacco Smoke : Other: former Smoking Status : Former smoker Tobacco 2A : Yes Tobacco Use/Currently Using : No Tobacco Use/Last 30 Days : No Tobacco Use/Last 12 months : No BRODIE NIELSEN LPN - 04/07/2015 8:43 RESEARCH PROFESSOR Caffeine Use Grid Caffeine Use : Current Type : Coffee Frequency : Daily BRODIE NIELSEN LPN - 04/07/2015 8:43 RESEARCH PROFESSOR Source: [employer] Document Id: [id number] RESEARCH PROFESSOR!21 ARCH PROFESSOR documented in this encounter Plan of Treatment Not on filedocumented as of this encounter Visit Diagnoses Not on filedocumented in this encounter Additional Health Concerns Assessment Noted Time PHQ-9 Depression Total Score: 2 03/08/2015 11:16 AM CS T documented as of this encounter
--- OUTSIDE RECORDS SUMMARY | 2022-03-08 11:07 | XMS_ITS | Encounter Summary ---
:1940 Author Organization [facility] Address [address] [place] [address] Care Team Providers Name Role Phone Unavailable [...]
--- OUTSIDE RECORDS SUMMARY | 2022-03-08 11:07 | XMS_ITS | Encounter Summary ---
:1940 Author Organization [facility] Address [address] [place] [address] Care Team Providers Name Role Phone Unavailable Primary Care Provider Unavailable Encounter Details Date Type Department Care Team Description 11/02/2014 Hospital Encounter HX [facility] Corby Woodward MMarry [address] [place] [address] (Wo rk) Social History Tobacco Use Types [...] Summary-Paper Based CODING DATE: 11/08/2014 FINAL [place] [facility] STATUS: * Discharged to Home [...] MCGUIRE Date Saved: 11/08/2014 09:46 am Source: [employer]CHART Document Id: [id number] documented in this encounter Plan of Treatment Not on filedocumented as of this encounter Visit Diagnoses Not on filedocumented in this encounter
--- OUTSIDE RECORDS SUMMARY | 2022-03-08 11:07 | XMS_ITS | Encounter Summary ---
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 PM CDT Oxygen Saturation - [...] Signature Magnesium, S 2.1 1.7 - 2.3 [facility] MG/DL [facility] Specimen Anatomical Collection Method Collection Time Receive d Time (Source) Location / / Volume Laterality 12/20/2011 4:05 AM 2 4:05 CDT AM CDT Historical Provider LAB BLOOD ADD-ON Performing Organization Address City/[facility]/ZIP Code Phon e Number [facility] - [address] (ABNORMAL) Phosphorus Inorganic (12/20/2011 4:05 AM CDT) [employer] Method Time Signature Phosphorus 4.6 (H) 2.5 - 4.5 [facility] (Inorganic), S MG/DL [facility] Specimen Anatomical Collection Method Collection Time Receive d Time (Source) Location / / Volume Laterality 12/20/2011 4:05 AM 2 4:05 CDT AM CDT Historical Provider LAB BLOOD ADD-ON Performing Organization Address City/[facility]/ZIP [facility] Phon e Number [facility] - [address] [place] [address] 05 [facility] CBC with Differential (12/20/2011 4:05 AM CDT) [employer] Method Time Signature Hemoglobin 14.4 13.5 - [facility] 17.5 G/DL [facility] Hematocrit 43.3 38.8 - [facility] 50.0 % [facility] RBC Distrib Width 13.6 11.8 - [facility] 15.6 % LABORATORIES - [facility] Platelet Count 202 150 - 450 [facility] X10(9)/L LAB[facility]ATORIES - [facility] Lymphocytes 2.33 0.90 - [facility] 2.90 LABORATORIES - X10(9)/L [facility] Monocytes 0.52 0.30 - [facility] 0.90 LABORATORIES - X10(9)/L [facility] Erythrocytes 4.75 4.32 - [facility] 5.72 LABORATORIES - X10(12)/L [facility] MCV 91.2 81.2 - [facility] 95.1 [place] [facility]ATOR[facility] - [facility] Leukocytes 7.5 3.5 - [facility] 10.5 LABORATORIES - X10(9)/L [facility] Neutrophils 4.40 1.70 - [facility] 7.00 LABORATORIES - X10(9)/L [facility] Eosinophils 0.18 0.05 - [facility] 0.50 LABORATORIES - X10(9)/L [facility] Basophils 0.02 0.00 - [facility] 0.30 LABORATORIES - X10(9)/L [facility] Specimen Anatomical Collection Method Collection Time Receive d Time (Source) Location / / Volume Laterality 12/20/2011 4:05 AM 2 4:05 CDT AM CDT Historical Provider LAB BLOOD ADD-ON Performing Organization Address City/State/[facility] Code Phon e Number [facility] - [address] [place] [address] [facility] (ABNORMAL) Troponin T (12/20/2011 4:05 AM CDT) Patholo gist Method Time Signature Troponin T, S 0.34 (H) <0.01 [facility] NG/ML [facility] Specimen Anatomical Collection Method Collection Time Receive d Time (Source) Location / / Volume Laterality 12/20/2011 4:05 AM 2 4:05 CDT AM CDT Historical Provider LAB BLOOD ADD-ON Performing Organization Address City/[facility] Code Phon e Number [facility] - [address] [place], [place] [address] [facility] Electrolyte (Chem 4) Panel (12/20/2011 4:05 AM CDT) Analysis Performed At Patho logist Time Signature Chloride, S 104 100 - 108 [facility] MMOL/L [facility]IES - [facility] HX Bicarbonate, 27 22 - 29 [facility] P/S MMOL/L [facility] - [facility] Sodium, S 141 135 - 145 [facility] MMOL/L [facility] - [facility] Potassium, S 4.2 3.6 - 5.2 [facility] MMOL/L [facility] Creatinine 1.2 0.8 - 1.3 [facility] MG/DL [facility] - [facility] BUN (Blood Urea 16 8 - 24 [facility] Nitrogen), S MG/DL [facility] Anion Gap 10 7 - 15 [facility] - [facility] Glucose, S 96 70 - 140 [facility] MG/DL [facility] Specimen Anatomical Collection Method Collection Time Receive d Time (Source) Location / / Volume Laterality 12/20/2011 4:05 AM 2 4:05 CDT AM CDT Historical Provider LAB BLOOD ADD-ON Performing Organization Address City/[facility]/ZIP Code Phon e Number [facility] - [address] [place] [address] [facility] (ABNORMAL) Creatine Kinase (CK) MB Isoenzyme (12/20/2011 4:05 AM CDT) Patholo gist Method Time Signature Creatine 6.9 (H) <6.7 NG/ML [facility] Kinase(CK) MB LABORATORIES - Isoenzyme, S [facility] Specimen Anatomical Collection Method Collection Time Receive d Time (Source) Location / / Volume Laterality 12/20/2011 4:05 AM 2 4:05 CDT AM CDT Historical Provider LAB BLOOD ADD-ON Performing Organization Address City/[facility]/ZIP Code Phon e Number [facility] - [address] [place] [address] [facility] (ABNORMAL) APTT (Activated Partial Thromboplastin Time) (12/19/2011 3:33 PM CDT) P athologist Signature APTT, P >240 (>) 28 - 38 [facility] SEC [facility]IES - [facility] Specimen Anatomical Collection Method Collection Time Receive d Time (Source) Location / / Volume Laterality 12/19/2011 3:33 PM 2 3:33 CDT PM CDT Lissa Casey M.D. LAB BLOOD ADD-ON Performing Organization Address City/[facility]/ZIP Code Phon e Number [facility] - [address] [place], [place] [address] [facility] (ABNORMAL) ACT (Activated Clotting Time), POCT (12/19/2011 2:25 PM CDT) [employer] Method Time Signature Activated 266 (H) 84 - 139 [facility] Clotting Time, SEC LABORATORIES - POCT [facility] Specimen Anatomical Collection Method Collection Time Receive d Time (Source) Location / / Volume Laterality 12/19/2011 2:25 PM 2 2:25 CDT PM CDT Historical Provider LAB POCT ORDERABLES - DEVICE Performing Organization Address City/[facility]/ZIP Code Phon e Number [facility] - [address] [place] [address] [facility] (ABNORMAL) ACT (Activated Clotting Time), POCT (12/19/2011 1:54 PM CDT) [employer] Method Time Signature Activated 227 (H) 84 - 139 [facility] Clotting Time, SEC LABORATORIES - POCT [facility] Specimen Anatomical Collection Method Collection Time Receive d Time (Source) Location / / Volume Laterality 12/19/2011 1:54 PM 2 1:54 CDT PM CDT Historical Provider LAB POCT ORDERABLES - DEVICE Performing Organization Address City/[facility]/ZIP Code Phon e Number [facility] - [address] [place] [address] [facility] ACT (Activated Clotting Time), POCT (12/19/2011 1:42 PM CDT) P athologist Signature Activated 138 84 - 139 [facility] Clotting Time, SEC LABORATORIES - POCT [facility] Specimen Anatomical Collection Method Collection Time Receive d Time (Source) Location / / Volume Laterality 12/19/2011 1:42 PM 2 1:42 CDT PM CDT Historical Provider LAB POCT ORDERABLES - DEVICE Performing Organization Address City/[facility]/ZIP Code Phon e Number [facility] - [address] [place] [address] [facility] Cardiac Catheterization (12/19/2011 1:11 PM CDT) Anatomical Region Laterality Modality Other Specimen (Source) Anatomical Collection Method Collection Time Re ceived Time Location / / Volume Laterality 12/19/2011 1:11 PM CDT Elliot S Rihal M.D. CV CARDIAC CATH PROCEDURES Procedure and [...] P 93 (H) 28 - 38 SEC [facility] Specimen Anatomical Collection Method Collection Time Receive d Time (Source) Location / / Volume Laterality 12/19/2011 8:20 AM 2 8:20 CDT AM CDT Historical Provider LAB BLOOD ADD-ON Performing Organization Address City/[facility]/ZIP Code Phon e Number [facility] - [address] [place] [address] [facility] (ABNORMAL) APTT (Activated Partial Thromboplastin Time) (12/19/2011 1:05 AM CDT) P athologist Signature APTT, P 50 (H) 28 - 38 [facility] Specimen Anatomical Collection Method Collection Time Receive d Time (Source) Location / / Volume Laterality 12/19/2011 1:05 AM 2 1:05 CDT AM CDT Tahmina Dong M.D. LAB BLOOD ADD-ON Performing Organization Address City/[facility] Code Phon e Number [facility] - [address] [place] [address] [facility] CBC with Differential (12/19/2011 1:05 AM CDT) [facility] Method Time Signature Hemoglobin 14.0 13.5 - [facility] 17.5 G/DL [facility] Hematocrit 40.5 38.8 - [facility] 50.0 % [facility] RBC Distrib Width 13.2 11.8 - [facility] 15.6 % [facility] Platelet Count 204 150 - 450 [facility] X10(9)/L [facility] Leukocytes 8.5 3.5 - [facility] 10.5 LABORATORIES - X10(9)/L [facility] Neutrophils 6.11 1.70 - [facility] 7.00 LABORATORIES - X10(9)/L [facility] Lymphocytes 1.84 0.90 - [facility] 2.90 LABORATORIES - X10(9)/L [facility] Monocytes 0.45 0.30 - [facility] 0.90 LABORATORIES - X10(9)/L [facility] Eosinophils 0.09 0.05 - [facility] 0.50 LABORATORIES - X10(9)/L [facility] Basophils 0.01 0.00 - [facility] 0.30 LABORATORIES - X10(9)/L [facility] Erythrocytes 4.43 4.32 - [facility] 5.72 LABORATORIES - X10(12)/L [facility] MCV 91.4 81.2 - [facility] 95.1 [place] [facility]ATORIES - [facility] Specimen Anatomical Collection Method Collection Time Receive d Time (Source) Location / / Volume Laterality 12/19/2011 1:05 AM 2 1:05 CDT AM CDT Tahmina Dong M.D. LAB BLOOD ADD-ON Performing Organization Address City/State/[facility] Code Phon e Number [facility] - [address] [place], [place] [address] [facility] Electrolyte (Chem 4) Panel (12/19/2011 1:04 AM CDT) Analysis Performed At Patho logist Time Signature Sodium, S 143 135 - 145 [facility] MMOL/L [facility] Potassium, S 4.1 3.6 - 5.2 [facility] MMOL/L [facility] Creatinine 0.9 0.8 - 1.3 [facility] MG/DL [facility] BUN (Blood Urea 16 8 - 24 [facility] Nitrogen), S MG/DL [facility] Chloride, S 108 100 - 108 [facility] MMOL/L [facility] HX Bicarbonate, 24 22 - 29 [facility] P/S MMOL/L [facility] Anion Gap 11 7 - 15 [facility] Glucose, S 95 70 - 140 [facility] MG/DL [facility] - [facility] Specimen Anatomical Collection Method Collection Time Receive d Time (Source) Location / / Volume Laterality 12/19/2011 1:04 AM 2 1:04 CDT AM CDT Tahmina Dong M.D. LAB BLOOD ADD-ON Performing Organization Address City/State/ZIP Code Phon e Number [facility] - [address] [place] [address] [facility] (ABNORMAL) Magnesium (12/19/2011 1:04 AM CDT) Analysis Performed At Patho logist Time Signature Magnesium, S 2.4 (H) 1.7 - 2.3 [facility] MG/DL [facility] Specimen Anatomical Collection Method Collection Time Receive d Time (Source) Location / / Volume Laterality 12/19/2011 1:04 AM 2 1:04 CDT AM CDT Tahmina Dong M.D. LAB BLOOD ADD-ON Performing Organization Address City/[facility]/ZIP Code Phon e Number [facility] - [address] [place] [address] [facility] Phosphorus Inorganic (12/19/2011 1:04 AM CDT) Analysis Performed At Patho logis Time Signature Phosphorus 4.2 2.5 - 4.5 [facility] (Inorganic), S MG/DL [facility] Specimen Anatomical Collection Method Collection Time Receive d Time (Source) Location / / Volume Laterality 12/19/2011 1:04 AM 2 1:04 CDT AM CDT Tahmina Dong M.D. LAB BLOOD ADD-ON Performing Organization Address City/State/ZIP Code Phon e Number [facility] - [address] DX Chest Portable 1 View (12/18/2011 7:31 [...] Electronically signed by: ?? Willie Laird MD [phone] 18-Dec-2011 20: 27 I have reviewed the films/images and agr ee with the above interpretation. Electronically signed by: ?? Maged Amato MD [phone] 18-Dec-2011 20:4 2 Procedure Note Maged Amato M.D. - 08/02/2017Forma tting of this note might be different from the original. 18-Dec-2011 19:31:00 Exam: Portable-Ches t Indications: STEMI ORIGINAL REPORT - 18-Dec-2011 20:27:00 Chest; 1 view: No pulmonary infiltrates or pleural effu sions. Normal cardiac size. Calcified tortuous aorta. Electronically signed by: Willie Laird MD [phone] 18-Dec-2011 20: 27 I have reviewed the films/images and agr ee with the above interpretation. Electronically signed by: Maged Amato MD [phone] 18-Dec-2011 20:4 2 Lissa Casey M.D. IMG DIAGNOSTIC IMAGING PROCE DURES (ABNORMAL) Cardiac Biomarker Panel (12/18/2011 7:25 PM CDT) [facility] [employer] Method Time Signature Delta Interp Sig Delta [facility] Comment: Significant delta observed. Troponin Delta 0.38 NG/ML [facility] Troponin T 6H, S 0.52 (H) <0.01 NG/ML [facility] Delta Interp Sig Delta [facility] Comment: Significant delta observed. Troponin T, S 0.09 (H) <0.01 NG/ML [facility] Troponin T 3H, S 0.47 (H) <0.01 NG/ML [facility] Troponin Delta 0.43 NG/ML [facility] [place] Specimen Anatomical Collection Method Collection Time Receive d Time (Source) Location / / Volume Laterality 12/18/2011 7:25 PM 2 7:25 CDT PM CDT Tahmina Dong M.D. LAB BLOOD ADD-ON Performing Organization Address City/State/ZIP Code Phon e Number [facility] - [address] [place], [place] [address] [facility] PT (Prothrombin Time) with INR (12/18/2011 7:25 PM CDT) [facility] [employer] Method Time Signature Prothrombin 11.0 9.5 - 13.8 [facility] Time, P SEC [facility] INR 1.0 0.8 - 1.2 [facility] Specimen Anatomical Collection Method Collection Time Receive d Time (Source) Location / / Volume Laterality 12/18/2011 7:25 PM 2 7:25 CDT PM CDT Tahmina Dong M.D. LAB BLOOD ADD-ON Performing Organization Address City/[facility]/ZIP Code Phon e Number [facility] - [address] [place] [address] [facility] (ABNORMAL) APTT (Activated Partial Thromboplastin Time) (12/18/2011 7:25 PM CDT) P athologist Signature APTT, P 78 (H) 28 - 38 [facility] Specimen Anatomical Collection Method Collection Time Receive d Time (Source) Location / / Volume Laterality 12/18/2011 7:25 PM 2 7:25 CDT PM CDT Tahmina Dong M.D. LAB BLOOD ADD-ON Performing Organization Address City/State/ZIP Code Phon e Number [facility] - [address] [place] [address] [facility] Electrolyte (Chem 4) Panel (12/18/2011 7:25 PM CDT) Analysis Performed At Patho logist Time Signature Chloride, S 106 100 - 108 [facility] MMOL/L [facility] BUN (Blood Urea 16 8 - 24 [facility] Nitrogen), S MG/DL [facility] Glucose, S 93 70 - 140 [facility] MG/DL [facility] Sodium, P 142 135 - 145 [facility] MMOL/L [facility] Potassium, P 4.1 3.6 - 5.2 [facility] MMOL/L [facility] HX Bicarbonate, 29 22 - 29 [facility] P/S MMOL/L [facility] Creatinine 1.0 0.8 - 1.3 [facility] MG/DL [facility] Specimen Anatomical Collection Method Collection Time Receive d Time (Source) Location / / Volume Laterality 12/18/2011 7:25 PM 2 7:25 CDT PM CDT Tahmina Dong M.D. LAB BLOOD ADD-ON Performing Organization Address City/State/ZIP Code Phon e Number [facility] - [address] [place], [place] [address] [facility] Magnesium (12/18/2011 7:25 PM CDT) P athologist Signature Magnesium, S 2.3 1.7 - 2.3 [facility] MG/DL [facility] Specimen Anatomical Collection Method Collection Time Receive d Time (Source) Location / / Volume Laterality 12/18/2011 7:25 PM 2 7:25 CDT PM CDT Tahmina Dong M.D. LAB BLOOD ADD-ON Performing Organization Address City/State/ZIP Code Phon e Number [facility] - [address] [place], [place] [address] [facility] Phosphorus Inorganic (12/18/2011 7:25 PM CDT) Analysis Performed At Patho logist Time Signature Phosphorus 2.6 2.5 - 4.5 [facility] (Inorganic), S MG/DL [facility] Specimen Anatomical Collection Method Collection Time Receive d Time (Source) Location / / Volume Laterality 12/18/2011 7:25 PM 2 7:25 CDT PM CDT Tahmina Dong M.D. LAB BLOOD ADD-ON Performing Organization Address City/[facility]/ZIP Code Phon e Number [facility] - [address] [place] [address] [facility] Lipid Panel (12/18/2011 7:25 PM CDT) Patholo gist Method Time Signature Cholesterol, 209 SeeComment [facility] Total MG/DL [facility] Comment: Reference Range: ? NCEP guidelines ? (ages 18y and up) ? Desirable: <200 ? Borderline high: 200-239 ? High: > or =240 ? Triglycerides 51 SeeComment MG/DL [facility] Comment: Reference Range: ? NCEP guidelines ? (ages 18y and up) ? Normal: <150 ? Borderline high: 150-199 ? High: 200-499 ? Very high: > or =500 ? Cholesterol, Non-HDL, 158 SeeComment MG/DL [facility] - Calculated [facility] [...] City/State/ZIP Code Phon e Number [facility] - [address] [place], [place] [address] [facility] (ABNORMAL) CBC with Differential (12/18/2011 7:25 PM CDT) [facility] gist Method Time Signature Hemoglobin 14.6 13.5 - [facility] 17.5 G/DL [facility] Hematocrit 43.7 38.8 - [facility] 50.0 % [facility] - [facility] RBC Distrib 13.3 11.8 - [facility] Width 15.6 % [facility] Platelet Count 205 150 - 450 [facility] X10(9)/L [facility] Leukocytes 13.7 (H) 3.5 - [facility] 10.5 LABORATORIES - X10(9)/L [facility] Neutrophils 12.10 (H) 1.70 - [facility] 7.00 LABORATORIES - X10(9)/L [facility] Lymphocytes 0.91 0.90 - [facility] 2.90 LABORATORIES - X10(9)/L [facility] Monocytes 0.59 0.30 - [facility] 0.90 LABORATORIES - X10(9)/L [facility] Eosinophils 0.08 0.05 - [facility] 0.50 LABORATORIES - X10(9)/L [facility] Basophils 0.02 0.00 - [facility] 0.30 LABORATORIES - X10(9)/L [facility] Erythrocytes 4.79 4.32 - [facility] 5.72 LABORATORIES - X10(12)/L [facility] MCV 91.2 81.2 - [facility] 95.1 [place] [facility] Specimen Anatomical Collection Method Collection Time Receive d Time (Source) Location / / Volume Laterality 12/18/2011 7:25 PM 2 7:25 CDT PM CDT Tahmina Dong M.D. LAB BLOOD ADD-ON Performing Organization Address City/State/ZIP Code Phon e Number [facility] - [address] [place], [place] [address] [facility] documented in this encounter Visit Diagnoses Not on filedocumented in this encounter
--- OUTSIDE RECORDS SUMMARY | 2022-03-08 11:07 | XMS_ITS | Encounter Summary ---
:1940 Author Organization [facility] Address [address] [place] [address] Care Team Providers Name Role Phone Unavailable [...]
--- OUTSIDE RECORDS SUMMARY | 2022-03-08 11:07 | XMS_ITS | Encounter Summary ---
:1940 Author Organization [facility] Address [address] [place] [address] Care Team Providers Name Role Phone Unavailable Primary Care Provider Unavailable Encounter Details Date Type Department Care Team Description 03/23/2015 - Hospital Encounter HX [facility] Ana Rosa English, 03/24/2015 ALEX Antonio [address] [place] [phone] Social History Tobacco Use Types Packs/Day Years Used Date Smoking Tobacco: Never Assessed Sex Assigned at Date Recorded Not on file documented as of this encounter Last Filed Vital Signs Vital Sign Reading Time Taken Comments Blood Pressure 134/82 03/24/2015 8:13 AM ATHLETIC INSTRUCTOR Pulse 105 03/24/2015 8:13 AM ATHLETIC INSTRUCTOR Temperature - - Respiratory Rate 16 03/24/2015 7:17 AM ATHLETIC INSTRUCTOR Oxygen Saturation - - Inhaled Oxygen Concentration - - Weight 70.5 kg (155 lb 6.8 oz) 03/24/2015 4:10 AM ATHLETIC INSTRUCTOR Height 167 cm (5' 5.75) 03/24/2015 8:13 AM ATHLETIC INSTRUCTOR Body Mass Index 25.28 03/24/2015 4:10 AM ATHLETIC INSTRUCTOR documented in this encounter Discharge Summaries Laine [...] patient: less than 30 minutes. Date: Laine Dya PA-C Electronically Signed By: LAINE DAY PA-C On: 04/17/2015 12:31 PM Source: [facility] [employer] Document Id: [id number] ETIC INSTRUCTOR Owen Vega, RLaraN. - 03/24/2015 10:21 AM CST Discharge Summary Discharge Summary Entered On: 03/24/2015 10:22 ATHLETIC INSTRUCTOR Performed On: 03/24/2015 10:21 ATHLETIC INSTRUCTOR by OWEN VEGA RN [place] Information Discharged to : Home independently, Home with family care Current Home Treatments : Wound senior care Equipment : Other: sling Professional Skilled Services : None Special Services and Community Resources : None Mode of Discharge : Wheelchair Discharge Transportation : Private vehicle Accompanied By : Nurse Date/Time of Discharge : 03/24/2015 10:22 ATHLETIC INSTRUCTOR OWEN VEGA RN - 03/24/2015 10:21 ATHLETIC INSTRUCTOR Valuables/Belongings Belongings Sent Home With : jessica patient OWEN VEGA RN - 03/24/2015 10:21 ATHLETIC INSTRUCTOR Source: [facility] POWERCHART Document Id: [id number] ATHLETIC INSTRUCTOR!13 ETIC INSTRUCTOR documented in this encounter Medications at Time [...] Therapy Initial Evaluation Entered On: 03/24/2015 9:47 ATHLETIC INSTRUCTOR Performed On: 03/24/2015 9:42 ATHLETIC INSTRUCTOR by AMAIRANI MCKOY PT General Info Reason for Referral to Physical Therapy : Decreased safety, Pain, Patient/Caregiver education Physical Therapy Orders : Physical Therapy Evaluate & Treat - 03/23/15 12:16:00 ATHLETIC INSTRUCTOR, Post Op therapy, s/p TSA Precautions to Rehabilitation Treatment : s/p rTSA, ostoeporosis Pain Symptoms : No Orientation : Oriented x 3 Safety/Judgment : Impaired Basic Command Following : Impaired AMAIRANI MCKOY PT - 03/24/2015 9:42 ATHLETIC INSTRUCTOR Musculoskeletal PT Range of Motion Grid Left Upper Extremity : Active Within Normal Limits Right Upper Extremity : Other AMAIRANI MCKOY PT - 03/24/2015 9:42 ATHLETIC INSTRUCTOR Right UE Range of Motion Detailed : flex 0-90, ER to neutral. , wrist/hand /elbow WFL Left Upper Extremity Strength : Other: WFL for bed mob and transfer Right Upper Extremity Strength : Other: held due to surgical precautions AMAIRANI MCKOY PT - 03/24/2015 9:42 ATHLETIC INSTRUCTOR Balance/Mobility Sitting/Standing Balance Grid Sitting Balance : Good Standing Balance : Good AMAIRANI MCKOY PT - 03/24/2015 9:42 ATHLETIC INSTRUCTOR Neuro Coordination : Normal AMAIRANI MCKOY PT - 03/24/2015 9:42 ATHLETIC INSTRUCTOR Assessment Rehabilitation Potential : Good PT Problem List : Pain limiting function, Strength/Range of motion deficits PT Clinical Assessment : Pt plans to have family assist at home and follow up with Jose Luis [facility]. Guidelines for shoulder rehab given to pt and . observed HEP and pt's self AROM. AMAIRANI MCKOY PT - 03/24/2015 9:42 ATHLETIC INSTRUCTOR Goals PT Patient/Caregiver Goal : return home Patient Will Tolerate PROM : Yes AMAIRANI MCKOY PT - 03/24/2015 9:42 ATHLETIC INSTRUCTOR Plan PT Frequency : Daily, Discontinue PT Duration : One day PT Anticipated Treatments : Therapeutic exercise PT Plan/Goals Established w Pt/Caregiver : Yes AMAIRANI MCKOY PT - 03/24/2015 9:42 ATHLETIC INSTRUCTOR DC Recommendations Discharge To, Anticipated : Home with family care PT Other Treatment : Yes AMAIRANI MCKOY PT - 03/24/2015 9:42 ATHLETIC INSTRUCTOR Treatment Therapeutic Activities/Exercise Provided : Yes PT [...] appt. AMAIRANI MCKOY PT - 03/24/2015 9:42 ATHLETIC INSTRUCTOR Ther Activities/Exercise Therapeutic Exercises Performed : Other: instruction in reverse TSA ex adn precautions but pt has a hard time concentrating. written ex and observed PROM 10reps flex 0-90 without resistance felt at endrange and eR to neutral. AMAIRANI MCKOY PT - 03/24/2015 9:42 ATHLETIC INSTRUCTOR Education PT Education Grid Topics : Exercise program, Physical Therapy plan of care Individuals Taught : Patient, Spouse Barriers to Learning : Difficulty concentrating Teaching Method : Demonstration, Explanation, Printed materials Teaching Evaluation : Returns demonstrations correctly, Verbalizes understanding AMAIRANI MCKOY PT - 03/24/2015 9:42 ATHLETIC INSTRUCTOR PT Charge Registration Status - PT : Inpatient: Hospital/TCU Physical Therapy Evaluation Charges : Yes Therapeutic Exercise Minutes : 13 minute(s) Therapeutic Exercise Charges : 1 units AMAIRANI MCKOY PT - 03/24/2015 9:42 ATHLETIC INSTRUCTOR [facility] POWERCHART Document Id: [id number] ATHLETIC INSTRUCTOR!58 ETIC INSTRUCTOR Grecia Ling APRN, C.N.P., M.S.N. - 03/24/2015 9:21 AM CST Hospital Progress Note (SOAP) Document Contains Addenda Addendum by KAREL CORONEL MD on 24 March 2015 11:35:25 ATHLETIC INSTRUCTOR Patient has been independently examined by me, [...] Total: 0.6 03/24/15 DIAGNOSTIC RESULTS 23-Mar-2015 12:15 [facility] PROCEDURE: Shoulder 1vw RIGHT COMPARISON: None. IMPRESSION: [...] view portable; DEACON Sanjuana VELA(R)(CT)Sanjuana(R) 03/23/2015 12:06 ATHLETIC INSTRUCTOR Electronically Signed By: GRECIA ALEMAN APRN C.N.PLara, M.S.N On: 03/24/2015 09:42 AM Source: [employer] Document Id: [id number] ETIC INSTRUCTOR Ana Rosa Dodson M.D. - 03/24/2015 7:27 AM CST POD#1 s/p R rTSA Pt doing well this am. Pain controlled with the block. Denies any issues. Ready for PT and looking forward to discharge home. AOx3, NAD R shoulder dressing c/d/i. Able to move fingers and under presser but due to block, limited exam. Hgb 12.5 Plan: -Sling, PT -No IR of the shoulder -oral pain meds -Dispo: likely d/c home today with catheter in place. Electronically Signed By: ANA ROSA DODSON MD On: 03/24/2015 07:29 AM Source: [employer] Document Id: [id number] ETIC INSTRUCTOR documented in this encounter Procedure Notes Brandi Millard RLaraN. - 03/23/2015 6:38 AM CST Preprocedure Checklist Preprocedure Checklist Entered On: 03/23/2015 6:54 ATHLETIC INSTRUCTOR Performed On: 03/23/2015 6:38 ATHLETIC INSTRUCTOR by BRANDI MILLARD RN Checklist Last Fluid Intake : 03/23/2015 5:00 ATHLETIC INSTRUCTOR Last Food Intake : 03/22/2015 18:00 ATHLETIC INSTRUCTOR Surgical Preparation : N/A BRANDI MILLARD RN - 03/23/2015 6:38 ATHLETIC INSTRUCTOR Surgery Prep Grid Contacts/Glasses Removed : Yes Dentures Removed : Yes (Comment: partial lower, full upper [BRANDI MILLARD RN - 03/23/2015 6:38 ATHLETIC INSTRUCTOR] ) Hairpins/Hairpiecies Removed : NA Hearing Aid Removed : Yes Home Prep Complete : NA Jewelry/Piercing Removed : Yes Makeup/Nail Tuvaluan Removed : NA Oral Hygiene : NA Preop Scrub AM of Surgery : Yes Preop Scrub Night Prior to Surgery : Yes Prosthesis Removed : NA Tampon Removed : NA Verified - No hair products used : NA Voided human relations manager to procedure : Yes Wearing Patient Gown : Yes BRANDI MILLARD RN - 03/23/2015 6:38 ATHLETIC INSTRUCTOR Patient Rights Grid Blood Consent Signed : Yes Surgical/Procedure Consent Signed : Yes BRANDI MILLARD RN - 03/23/2015 6:38 ATHLETIC INSTRUCTOR Family Location : Astrid BRANDI MILLARD RN - 03/23/2015 6:38 ATHLETIC INSTRUCTOR Checklist II Patient Safety Grid Allergy Band on and Verified : Yes (Comment: none [BRANDI MILLARD RN - 03/23/2015 6:38 ATHLETIC INSTRUCTOR] ) Anesthesia Consult : Yes Band on for Limb Alert : NA Blood Band on and Verified : NA Current ECG in Medical Record : Yes Current H&P in Medical Record : Yes Implants Verified : Yes (Comment: none [BRANDI MILLARD RN - 03/23/2015 6:38 ATHLETIC INSTRUCTOR] ) Medication Reconciliation on Chart : Yes [...] : BRANDI SALAZAR RN - 03/23/2015 6:38 ATHLETIC INSTRUCTOR RN Who Verified Site : BRANDI MILLARD RN Physician Who Verified Site : ANA ROSA DODSON MD, TAMMARA RN - 03/23/2015 6:38 ATHLETIC INSTRUCTOR SORAYA Screening Known Obstructive Sleep Apnea : No - NOT diagnosed with SORAYA SORAYA Score : No qualifying data available. SORAYA Results : No qualifying data available. BRANDI MILLARD RN - 03/23/2015 6:38 ATHLETIC INSTRUCTOR SORAAY Assessment Do you have high blood pressure or have you been told to take medication for high blood pressure? : No Frequency of Snoring : Rarely (1-2 times per year) Frequency of Gasping, Choking, Snorting : Never Total Number of Historical Features : 0 Neck Circumference (cm) : 40/41 Total Sleep Apnea Clinical Score Calc : 3 BRANDI MILLARD RN - 03/23/2015 6:38 ATHLETIC INSTRUCTOR Advance Directive Advanced Directives : No Advance Directive Additional Information : No TRACEROSAA RN - 03/23/2015 6:38 ATHLETIC INSTRUCTOR Vital Signs Temperature Core : 36.7 DegC(Converted [...] kg/m2 BRANDI MILLARD RN - 03/23/2015 6:38 ATHLETIC INSTRUCTOR OR [employer] Sales Representative Checklist Images Present and Correct : Yes Special Equipment Present : Yes Implants Present : Yes Rep Required and Present : Yes Blood Components Present : N/A JOAQUINA CALDERON RN - 03/23/2015 7:30 ATHLETIC INSTRUCTOR [facility] POWERCH[facility] Document Id: [id number] ATHLETIC INSTRUCTOR!7 ETIC INSTRUCTOR documented in this encounter Consult Notes Karel Coronel - 03/23/2015 12:00 AM CST [id number] Patient has undergone a right shoulder rotator [...] risk assessment done by a Laila Loco, [facility] in [place] (outside of [facility]). Has quit taking his aspirin 5 days [...] CORONEL MD On: 03/23/2015 03:24 PM Source: [facility] [employer] Document Id: [id number] ETIC INSTRUCTOR documented in this encounter Nursing Notes Alex Colon, SammySShukri - 03/24/2015 9:51 AM CST Export Packer/Discharge Planning Export Packer/Discharge Planning Entered On: 03/24/2015 10:13 ATHLETIC INSTRUCTOR Performed On: 03/24/2015 9:51 ATHLETIC INSTRUCTOR by ALEX COLON Assessment Export Packer Needs : Export Packer Assessment Follow in Interdisciplinary Team : Yes Referral : Auto Information Obtained From : Patient Languages : Anguillan Mental Status : Alert ALEX COLON - 03/24/2015 9:51 ATHLETIC INSTRUCTOR Advance Directive Advanced Directives : No Advance Directive Additional Information : No ALEX COLON - 03/24/2015 9:51 ATHLETIC INSTRUCTOR Psychosocial Domestic Abuse Concerns : None Safe Place to Go : Yes Agency Notified of Domestic Concerns : None Marital Status : Years of Marriage : Astrid [phone] Number of Children : 4 kids: Yuval Peng and [facility] [place] Emotional Support Available : Yes Behavioral Health Screen/Safety Assmt : No [employer] Preference : [place] COLONИВАНALEX M [facility] 03/24/2015 9:51 ATHLETIC INSTRUCTOR Dependent Habits Tobacco Use/Currently Using : No Exposure to Tobacco Smoke : Other: former Smoking Status : Unknown if ever smoke RYLIEPHILIPPИВАНALEX M [facility] 03/24/2015 9:51 ATHLETIC INSTRUCTOR Tobacco Use Grid Other Tobacco Frequency : no ALEX COLON [facility] 03/24/2015 9:51 ATHLETIC INSTRUCTOR Caffeine Use Grid Caffeine Use : Current Type : Coffee Frequency : Daily RYLIEPHILIPP ALEX M [facility] 03/24/2015 9:51 ATHLETIC INSTRUCTOR DC Needs Plan for Discharge : Pt plans to return home with his Astrid who will be with him upon discharge and will be transporting him. He will do outpt PT at [facility]. Home Equipment, Anticipated : Dressing device RYLIEPHILIPPИВАНALEX M [facility] 03/24/2015 9:51 ATHLETIC INSTRUCTOR Discharge Planning Discharge Options Discussed with Patient : Discharge transportation, Home Health, Rehabilitation Unit ALEX COLON [facility] 03/24/2015 9:51 ATHLETIC INSTRUCTOR Source: [facility] [employer]CHART Document Id: [id number] ATHLETIC INSTRUCTOR!38 ETIC INSTRUCTOR Ankita Lynch RLaraNLara - 03/24/2015 4:12 AM CST Cardiac Monitoring Cardiac Monitoring Entered On: 03/24/2015 4:13 ATHLETIC INSTRUCTOR Performed On: 03/24/2015 4:12 ATHLETIC INSTRUCTOR by ANKITA LYNCH RN Cardiac Monitoring Monitoring Lead : III, V1/MCL1 Atrial Rate : 68 bpm Atrial Rhythm : Regular Ventricular Rate : 68 bpm Ventricular Rhythm : Regular WV Interval : 0.19 P to QRS Ratio : 1:1 QRS Duration : 0.08 second(s) QT Interval : 0.40 second(s) WV Consistency : Consistent QRS Consistency : Consistent ST Segment : Isoelectric Ectopy Frequency : None Cardiac Rhythm Tech : Sinus rhythm ANKITA LYNCH RN - 03/24/2015 4:12 ATHLETIC INSTRUCTOR Source: [employer] Document Id: [id number] ATHLETIC INSTRUCTOR!16 ETIC INSTRUCTOR Alma Teixeira R.N. - 03/24/2015 3:24 AM CST PRN Response PRN Response Entered On: 03/24/2015 3:24 ATHLETIC INSTRUCTOR Performed On: 03/24/2015 3:24 ATHLETIC INSTRUCTOR by ALMA TEIXEIRA RN PRN Medication Effectiveness Evaluation PRN Medication Effective : Yes ALMA TEIXEIRA RN - 03/24/2015 3:24 ATHLETIC INSTRUCTOR Source: [employer] Document Id: [id number] ATHLETIC INSTRUCTOR!3 ETIC INSTRUCTOR Ankita Lynch R.N. - 03/24/2015 12:05 AM CST Cardiac Monitoring Document Has Been Updated Cardiac Monitoring Entered On: 03/24/2015 2:53 ATHLETIC INSTRUCTOR Performed On: 03/24/2015 0:05 ATHLETIC INSTRUCTOR by ANKITA LYNCH RN Cardiac Monitoring Monitoring Lead : III, V1/MCL1 Atrial Rate : 84 bpm Atrial Rhythm : Regularly irregular Ventricular Rate : 84 bpm Ventricular Rhythm : Regularly irregular WV Interval : 0.18 P to QRS Ratio : 1:1 QRS Duration : 0.07 second(s) QT Interval : 0.39 second(s) WV Consistency : Consistent QRS Consistency : Consistent ST Segment : Isoelectric Ectopy Frequency : None Cardiac Rhythm Tech : Sinus arrhythmia ANKITA LYNCH RN - 03/24/2015 2:56 ATHLETIC INSTRUCTOR Source: [employer] Document Id: [id number] ATHLETIC INSTRUCTOR!16 ETIC INSTRUCTOR Gena Gonzalez R.N. - 03/23/2015 8:00 PM CST Cardiac Monitoring Cardiac Monitoring Entered On: 03/23/2015 20:10 ATHLETIC INSTRUCTOR Performed On: 03/23/2015 20:00 ATHLETIC INSTRUCTOR by GENA GONZALEZ RN Cardiac Monitoring Monitoring Lead : III, V1/MCL1 Atrial Rate : 95 bpm Atrial Rhythm : Regular Ventricular Rate : 95 bpm Ventricular Rhythm : Regular WV Interval : 0.19 QRS Duration : 0.07 second(s) QT Interval : 0.34 second(s) Ectopy Frequency : None Cardiac Rhythm Tech : Sinus rhythm GENA GONZALEZ RN - 03/23/2015 20:09 ATHLETIC INSTRUCTOR [facility]: [facility] Document Id: [id number] ATHLETIC INSTRUCTOR!12 ETIC INSTRUCTOR Daria Sousa R.N. - 03/23/2015 2:04 PM CST Cardiac Monitoring Cardiac Monitoring Entered On: 03/23/2015 14:15 ATHLETIC INSTRUCTOR Performed On: 03/23/2015 14:04 ATHLETIC INSTRUCTOR by DARIA SOUSA RN Cardiac Monitoring Monitoring Lead : III Monitoring Lead Turf Manager : Initiated Atrial Rate : 61 bpm Atrial Rhythm : Regular Ventricular Rate : 61 bpm Ventricular Rhythm : Regular WV Interval : 0.22 P to QRS Ratio : 1:1 QRS Duration : 0.07 second(s) QT Interval : 0.45 second(s) (Comment: qtc 0.44 [DARIA SOUSA RN - 03/23/2015 14:14 ATHLETIC INSTRUCTOR] ) WV Consistency : Consistent QRS Consistency : Consistent ST Segment : Isoelectric Ectopy Frequency : None Cardiac Rhythm Tech : First degree heart block DARIA SOUSA RN - 03/23/2015 14:14 ATHLETIC INSTRUCTOR [facility]: [facility] Document Id: [id number] ATHLETIC INSTRUCTOR!17 ETIC INSTRUCTOR Conversion, Historical Provider Ser - 03/23/2015 10:31 AM CST [facility]WHO Main OR Nursing Record [facility] Main OR Nursing Record Summary Primary Physician: ANA ROSA DODSON MD Finalized Date/Time: 03/23/15 14:54:24 Pt. Name: RYLEY DURÁN /Sex: 1940 Male Med Rec #: [id number] Physician: ANA ROSA DODSNO MD Financial #: [id number] Pt. Type: I Room/Bed: [facility] Admit/Disch: 03/23/15 06:16:56 - Institution: Allergies identified in patient's electronic medical record at time of printing on 03/23/15 Entry 1 Substance NKA Reaction Type Allergy Last Modified By: TIEN ELLIS 01/09/10 14:01:09 Nursing Assessment [facility] Entry 1 Preop Checklist Yes [...] JOAQUINA CALDERON RN 03/23/15 08:45:27 Case Times [facility] Entry 1 Patient In Room Time 03/23/15 08:00:00 Anesthesia Start 03/23/15 08:00:00 Time Surgery Start Time 03/23/15 08:38:00 Surgery Stop Time 03/23/15 10:31:00 Patient Out Room 03/23/15 10:55:00 Anesthesia Stop Time 03/23/15 10:55:00 Time Last Modified By: JOAQUINA CALDERON RN 03/23/15 13:20:46 Case Attendance [facility] Entry 1 Entry 2 Entry 3 Case Attendee ANAR OSA DODSON MD, JOAQUINA HODGE MD, RN Role Performed Surgeon, Primary Navigation Teacher, First RN Automotive Leasing Sales Representative - Primary Time In 03/23/15 08:00:00 03/23/15 [...] Scrub, First Certified Registered Student Registered Nurse Ice Cream Maker Nurse Ice Cream Maker Time In 03/23/15 08:00:00 03/23/15 08:00:00 03/23/15 08:00:00 Time Out 03/23/15 10:55:00 03/23/15 10:55:00 03/23/15 10:55:00 Relief? No No No See Anesthesia Record for Additional Attendees and Relief Times Last Modified By: JOAQUINA CALDERON RN, CHARLES RN RITMIRE, CHARLES RN 03/23/15 13:20:48 03/23/15 13:20:48 03/23/15 13:20:48 Entry 7 Entry 8 Entry 9 Case Attendee LAINE DAY PA-C, HARESH SANTOS RN Role Performed Navigation Teacher, First Airline Operations Agent RN Automotive Leasing Sales Representative - Primary Time In 03/23/15 08:00:00 03/23/15 [...] Data [facility]WHO Entry 1 Case Information OR [facility] OR 04 Case Level Level [...] RN 03/23/15 08:50:55 Cautery Entry 1 CauteryType [facility] I.D. Number [id number] Coag Setting 50 Cut Setting 50 Grounding [...] 15MM INVERSE REVERSE Misc Shoulder Implants POS [id number] CANCELLOUS SCREW 4.5 X 18MM 23.018 Implant Site Right Shoulder Right Shoulder Right Shoulder Operating Room Assistant Lisa Lisa Lisa Catalog # [id number] .018 .030 (Operating Room Assistant Item Number) Lot Number or [id number] Serial Number/ Hospital Load Number Size 15mm 18mm 30mm Quantity 1 1 1 Expiration Date Last Modified By: JOAQUINA CALDERON RN, CHARLES RN RITMIRE, CHARLES RN 03/23/15 14:45:08 03/23/15 14:45:08 03/23/15 14:45:08 Entry 4 Entry 5 Entry 6 Implant Identification Implant Description TM REVERSE 36MM Misc Shoulder Implants TM REVERSE 36MM POLY GLENOSPHERE LINER +0MM [id number] Implant Site Right Shoulder Right Shoulder Right Shoulder Operating Room Assistant Lisa Lisa Lisa Catalog # [id number] (Operating Room Assistant Item Number) Lot Number or [id number] Serial Number/ Hospital Load Number Size 36mm [...] Final Count Sponges Count Yes Yes Correct? [place] Yes Yes Count Correct? Instrument Count Yes [...] Unfinalizing Freetext Reason for Unfinalizing 03/23/15 14:44 [id number] Finish Documentation 03/23/15 14:50 [id number] Modify Pick List 03/23/15 14:53 [id number] Modify Pick List Source: [facility] POWERCHART Document Id: [id number] Brandi Millard RLaraNLara - 03/23/2015 6:38 AM CST Influenza Immunization Asmt Influenza Immunization Asmt Entered On: 03/23/2015 6:55 ATHLETIC INSTRUCTOR Performed On: 03/23/2015 6:38 ATHLETIC INSTRUCTOR by BRANDI MILLARD RN Influenza Protocol Influenza Vaccine Exclusions : Patient has none of the below exclusions Influenza Patient Wants Vaccine : No - Refused/Order not placed BRANDI MILLARD RN - 03/23/2015 6:38 ATHLETIC INSTRUCTOR Source: [employer] Document Id: [id number] ATHLETIC INSTRUCTOR!4 ETIC INSTRUCTOR documented in this encounter OR Notes Op [...] BURT MD On: 03/24/2015 02:13 PM Source: [employer] Document Id: [id number] ETIC INSTRUCTOR Op Note - Iva Rader APRN, CRNA [...] RADER CRNA On: 03/23/2015 11:37 AM Source: [employer] Document Id: [id number] ETIC INSTRUCTOR Op Note - Sangita Patiño CRNA - [...] PATIÑO CRNA On: 03/23/2015 07:39 AM Source: [facility] POWERCHART Document Id: [id number] ETIC INSTRUCTOR Op Note - Ana Rosa Dodson M.D. - 03/23/2015 12:00 AM CST [id number] PREOPERATIVE DIAGNOSIS Right shoulder rotator cuff arthropathy. POSTOPERATIVE DIAGNOSIS Right shoulder rotator cuff arthropathy. PROCEDURE Right reverse total shoulder arthroplasty. IMPLANTS Lisa 15 mm post length trabecular metal base plate with a 36 Glenosphere, a 12 x 130 trabecular metal humeral stem with a 0 x 36 mm poly liner. SURGEON Ana Rosa Dodson MD PICKLE SORTER SURGEON Brant Lazo MD. I requested Dr. [...] and safe transport from the operative suite. PICKLE SORTER Laine Day PA-C. I requested Laine to [...] DODSON MD On: 03/23/2015 12:40 PM Source: [facility] MHSDOLBEYNONRADSYS Document Id: [id number] ETIC INSTRUCTOR Op Note - Paul Burt M.D. - [...] MEDICAL/PROBLEM HISTORY weight 69 kg CAD s/p CT 2011- s/p SHAHAB middle RCA 2011 echo [...] BURT MD On: 03/21/2015 02:18 PM Source: [employer] Document Id: [id number] ETIC INSTRUCTOR documented in this encounter Miscellaneous Notes Miscellaneous - Conversion, Historical Provider Ser - 03/24/2015 10:21 AM ATHLETIC INSTRUCTOR Coding Summary-Paper Based CODING DATE: 04/04/2015 FINAL [facility] STATUS: * Discharged to Home or Self [...] SECONDARY: I25.10 Y Atherosclerotic heart disease of [place] coronary artery without angina pectoris R00.1 Y Bradycardia, unspecified M35.3 Y Polymyalgia rheumatica E78.5 Y Hyperlipidemia, unspecified I10 Y Essential (primary) hypertension K21.9 Y Gastro-esophageal reflux disease without esophagitis Z87.891 Personal history of nicotine dependence Z98.61 Coronary angioplasty status Z79.82 long-term (current) use of aspirin PROCEDURES DOCTOR NAME DATE [id number] Replacement of Right Shoulder ANA ROSA DODSON 03/23/2015 Joint with Reverse Ball and Socket Synthetic Substitute, Open Approach NOTE: The code number assigned matches the documented diagnosis and / or procedure in the patient's chart. However, the narrative phrase printed from the coding software may appear abbreviated, or result in slightly different terminology. Coded By: BALAJI DESOUZA Date Saved: 04/04/2015 12:12 pm Source: [facility] Document Id: [id number] Miscellaneous - Owen Vega R.N. - 03/24/2015 [...] at security quinones with metal detectors. ?? 3065-2233 [facility], [address] [place] [address], [place] [address]. All rights reserved. This information is not [...] about how you use yournew shoulder. ?? 4053-3565 [facility], [address] [place] [address]. All rights reserved. This information is not intended as a substitute for professional medical care. Always follow your healthcare professional's instructions. This document has images extracted. Please consider using [employer] for all your patient education needs. Source: [facility] [employer] Document Id: [id number] ETIC INSTRUCTOR Rukhsanacellaneous - Jacquie Aranda - 03/24/2015 9:20 AM CST Hospital Patient Education The following Patient Education Materials have been given to the patient: Patient Education Materials: Source: [facility] [employer] Document Id: [id number] ETIC INSTRUCTOR Rukhsanacellaneous - Owen Vega, RLaraN. - 03/24/2015 9:15 AM CST Adult Ongoing Assessment Adult Ongoing Assessment Entered On: 03/24/2015 9:21 ATHLETIC INSTRUCTOR Performed On: 03/24/2015 9:15 ATHLETIC INSTRUCTOR by OWEN VEGA RN Respiratory Respiratory Patient Stated Symptoms : None Respirations : Unlabored Distress : None Respiratory Pattern : Regular All Lobes Breath Sounds : Clear Cough : None Sputum Amount : None Suction : None Airway : Patent OWEN VEGA - 03/24/2015 9:15 ATHLETIC INSTRUCTOR Cardiovascular CV Patient Stated Symptoms : None Heart Rhythm : Regular Heart Sounds ICU : S1S2 Antiembolism Device Yes/No : Yes Nail Bed Color : Helmetta Capillary Refill : Less than 2 seconds Edema Assessment : No OWEN VEGA - 03/24/2015 9:15 ATHLETIC INSTRUCTOR Radial Pulse, Left : 2+ Normal Radial Pulse, Right : 2+ Normal Dorsalis Pedis Pulse, Left : 2+ Normal Dorsalis Pedis Pulse, Right : 2+ Normal OWEN VEGA [facility] 03/24/2015 9:15 ATHLETIC INSTRUCTOR Skin Color : Normal for ethnicity Skin Description : Dry Activity Tolerance : Minimal distress OWEN VEGA [facility] 03/24/2015 9:15 ATHLETIC INSTRUCTOR Antiembolism Device Antiembolism Device : Sequential Compression Device Antiembolism Device Laterality : Bilateral Compression Stockings : Knee High Antiembolism Device Status : On OWEN VEGA - 03/24/2015 9:15 ATHLETIC INSTRUCTOR Neurological Neuro Patient Stated Symptoms : None Orientation : Oriented x 3, Appropriate for age Level of Consciousness : Alert Gait : Steady Swallowing Difficulty/Aspiration Risk : None Last Well Time Known : Not applicable OWEN VEGA [facility] 03/24/2015 9:15 ATHLETIC INSTRUCTOR Pierre Coma Eye Opening Response Pierre : Spontaneously Best Verbal Response Pierre : Oriented Best Motor Response Pierre : Obeys simple commands [place] Coma Score : 15 OWEN VEGA [facility] 03/24/2015 9:15 ATHLETIC INSTRUCTOR Oral Assessment Lips : Smooth, pink, moist, intact Gingiva : Helmetta, smooth, moist, intact Tongue : Smooth, pink, moist, intact Teeth : Clean, no debris Saliva : Thin, watery, plentiful OWEN VEGA [facility] 03/24/2015 9:15 ATHLETIC INSTRUCTOR Psycho/Emotional Affect/Behavior : Calm, Cooperative, Appropriate Pain Symptoms : No OWEN VEGA [facility] 03/24/2015 9:15 ATHLETIC INSTRUCTOR Coping Grid Identifies effective strategies : Yes [...] Yes OWEN VEGA RN - 03/24/2015 9:15 ATHLETIC INSTRUCTOR Safety Grid Vision, Hearing, Mobility Adequate to Meet Safety Needs : Yes OWEN VEGA RN - 03/24/2015 9:15 ATHLETIC INSTRUCTOR Gastrointestinal GI Patient Stated Symptoms : None Abdomen Description : Obese, Symmetric Abdomen Palpation : Non-Tender, Soft Bowel Movement Last Date : 03/22/2015 ATHLETIC INSTRUCTOR Bowel Sounds All Quadrants : Present OWEN VEGA RN - 03/24/2015 9:15 ATHLETIC INSTRUCTOR Nutrition Appetite : Excellent Eating Difficulties : None Feeding Ability : Complete independence OWEN VEGA RN - 03/24/2015 9:15 ATHLETIC INSTRUCTOR Genitourinary Patient Stated Symptoms : None Urine Color : Yellow Urine Description : Clear Urine Odor : Odorless Bladder Distention : Absent OWEN VEGA RN - 03/24/2015 9:15 ATHLETIC INSTRUCTOR Integumentary Integumentary Patient Stated Symptoms : None Skin Integrity : Not intact Mucous Membrane Color : Helmetta Mucous Membrane Description : Moist OWEN VEGA RN - 03/24/2015 9:15 ATHLETIC INSTRUCTOR Archival Records Clerk Integumentary - Grid Archival Records Clerk : Sequential Compression Device OWEN VEGA RN - 03/24/2015 9:15 ATHLETIC INSTRUCTOR Skin Color : Normal for ethnicity Skin Description : Dry Skin Temperature : Warm OWEN VEGA RN - 03/24/2015 9:15 ATHLETIC INSTRUCTOR Incision/Wound Incision/Wound Care Grid Activity : Assessed Type : Surgical incision Location : Shoulder Laterality : Right Drainage : None Drainage Amount : None Surrounding Tissue : Intact OWEN VEGA RN - 03/24/2015 9:15 ATHLETIC INSTRUCTOR Hawk Sensory Perception Hawk : No impairment Moisture Hawk : Rarely moist Activity Hawk : Walks occasionally Mobility Hawk : Slightly limited Nutrition Hawk : Excellent Friction and Shear Hawk : No apparent problem Hawk Score : 21 OWEN VEGA RN - 03/24/2015 9:15 ATHLETIC INSTRUCTOR Musculoskeletal Musculoskeletal Patient Stated Symptoms : None OWEN VEGA RN - 03/24/2015 9:15 ATHLETIC INSTRUCTOR Musculoskeletal Strength Grid Left Upper Extremity Right Upper Extremity Left Lower Extremity Right Lower Extremity Sensation : Normal Normal Normal Normal OWEN VEGA RN - 03/24/2015 9:15 ATHLETIC INSTRUCTOR OWEN VEGA RN - 03/24/2015 9:15 ATHLETIC INSTRUCTOR OWEN VEGA RN - 03/24/2015 9:15 ATHLETIC INSTRUCTOR OWEN VEGA RN - 03/24/2015 9:15 ATHLETIC INSTRUCTOR Peripheral IV Peripheral IV Assess/Intervention Grid Peripheral IV #1 Peripheral IV #2 IV Activity : Discontinue Start Number of Attempts : 1 Date of Insertion : 03/23/2015 ATHLETIC INSTRUCTOR 03/23/2015 ATHLETIC INSTRUCTOR IV Site : Forearm Antecubital Laterality : Left Left Catheter Size : 20 18 Catheter Type : Protective Site Condition : No complications Drainage Description : None Infiltration Score : 0 Phlebitis Score : 0 OWEN VEGA RN - 03/24/2015 9:15 ATHLETIC INSTRUCTOR OWEN VEGA RN - 03/24/2015 9:15 ATHLETIC INSTRUCTOR Hendrich II Fall Risk Confusion/Disorientation Hendrich : [...] 1 OWEN VEGA RN - 03/24/2015 9:15 ATHLETIC INSTRUCTOR Safe Patient Handling Safe Pt Handling Independent : Yes - No equipment needed Safe Pt Handling Equipment Rec : No Equipment Needed OWEN VEGA RN - 03/24/2015 9:15 ATHLETIC INSTRUCTOR Education General Patient Education [employer] Topics : [...] understanding OWEN VEGA RN - 03/24/2015 9:15 ATHLETIC INSTRUCTOR [facility] [employer] Document Id: [id number] ATHLETIC INSTRUCTOR!162 ETIC INSTRUCTOR Miscellaneous - Alma Teixeira R.N. - 03/24/2015 3:24 AM CST Adult Ongoing Assessment Adult Ongoing Assessment Entered On: 03/24/2015 3:31 ATHLETIC INSTRUCTOR Performed On: 03/24/2015 3:24 ATHLETIC INSTRUCTOR by ALMA TEIXEIRA RN Respiratory Respiratory Patient Stated Symptoms : None Respirations : Unlabored Distress : None Respiratory Pattern : Regular All Lobes Breath Sounds : Clear Cough : None Sputum Amount : None Suction : None Airway : Patent ALMA TEIXEIRA RN - 03/24/2015 3:24 ATHLETIC INSTRUCTOR Cardiovascular CV Patient Stated Symptoms : None Heart Rhythm : Regular Antiembolism Device Yes/No : Yes Nail Bed Color : Helmetta Capillary Refill : Less than 2 seconds Edema Assessment : No Monitored Rhythm : Yes Pacer : No Skin Color : Normal for ethnicity Skin Description : Normal Skin Temperature : Warm Activity Tolerance : Moderate distress ALMA TEIXEIRA RN - 03/24/2015 3:24 ATHLETIC INSTRUCTOR Antiembolism Device Antiembolism Device : Sequential Compression Device Antiembolism Device Laterality : Bilateral Antiembolism Device Status : On ALMA TEIXEIRA RN - 03/24/2015 3:24 ATHLETIC INSTRUCTOR Neurological Neuro Patient Stated Symptoms : None Orientation : Oriented x 3 Level of Consciousness : Alert Gait : Unable to assess Swallowing Difficulty/Aspiration Risk : None Last Well Time Known : Not applicable ALMA TEIXEIRA RN - 03/24/2015 3:24 ATHLETIC INSTRUCTOR [place] Coma Eye Opening Response Pierre : Spontaneously Best Verbal Response Pierre : Oriented Best Motor Response Pierre : Obeys simple commands [place] Coma Score : 15 ALMA TEIXEIRA RN - 03/24/2015 3:24 ATHLETIC INSTRUCTOR Psycho/Emotional Affect/Behavior : Calm, Cooperative, Appropriate Pain Symptoms : No Feels Rested : Yes ALMA TEIXEIRA RN - 03/24/2015 3:24 ATHLETIC INSTRUCTOR Coping Grid Identifies effective strategies : Yes [...] Yes ALMA TEIXEIRA RN - 03/24/2015 3:24 ATHLETIC INSTRUCTOR Safety Grid Vision, Hearing, Mobility Adequate to Meet Safety Needs : Yes ALMA TEIXEIRA RN - 03/24/2015 3:24 ATHLETIC INSTRUCTOR Gastrointestinal Abdomen Description : Flat Abdomen Palpation : Non-Tender Bowel Movement Last Date : 03/22/2015 ATHLETIC INSTRUCTOR Bowel Sounds All Quadrants : Present Passing Flatus : Yes ALMA TEIXEIRA RN - 03/24/2015 3:24 ATHLETIC INSTRUCTOR Nutrition Appetite : Good Eating Difficulties : None Feeding Ability : Complete independence ALMA TEIXEIRA RN - 03/24/2015 3:24 ATHLETIC INSTRUCTOR Genitourinary Patient Stated Symptoms : None Urinary Elimination : Voiding, no difficulties Urine Color : Yellow Urine Description : Clear Urine Odor : Odorless ALMA TEIXEIRA RN - 03/24/2015 3:24 ATHLETIC INSTRUCTOR Integumentary Skin Color : Normal for ethnicity Skin Description : Normal Skin Temperature : Warm ALMA TEIXEIRA RN - 03/24/2015 3:46 ATHLETIC INSTRUCTOR Integumentary Patient Stated Symptoms : None Skin Turgor : Elastic Skin Integrity : Not intact Mucous Membrane Color : Helmetta Mucous Membrane Description : Moist ALMA TEIXEIRA RN - 03/24/2015 3:24 ATHLETIC INSTRUCTOR Archival Records Clerk Integumentary - Grid Archival Records Clerk : Sequential Compression Device ALMA TEIXEIRA RN - 03/24/2015 3:24 ATHLETIC INSTRUCTOR Incision/Wound Incision/Wound Care Grid Activity : Assessed Type : Surgical incision Location : Shoulder Laterality : Right Drainage : None ALMA TEIXEIRA RN - 03/24/2015 3:24 ATHLETIC INSTRUCTOR Hawk Sensory Perception Hawk : No impairment Moisture Hawk : Rarely moist Activity Hawk : Walks occasionally Mobility Hawk : Slightly limited Nutrition Hwak : Adequate Friction and Shear Hawk : No apparent problem Hawk Score : 20 ALMA TEIXEIRA RN - 03/24/2015 3:24 ATHLETIC INSTRUCTOR Musculoskeletal Musculoskeletal Patient Stated Symptoms : Joint stiffness Activity Tolerance : Minimal distress ALMA TEIXEIRA RN - 03/24/2015 3:24 ATHLETIC INSTRUCTOR Musculoskeletal Joint Asmt Ultragrid Joint Assessment #1 Location : Shoulder, right Assessment : No abnormalities ALMA TEIXEIRA RN - 03/24/2015 3:24 ATHLETIC INSTRUCTOR Peripheral IV Peripheral IV Assess/Intervention Grid Peripheral IV #1 Peripheral IV #2 IV Activity : Discontinue Start Number of Attempts : 1 Date of Insertion : 03/23/2015 ATHLETIC INSTRUCTOR 03/23/2015 ATHLETIC INSTRUCTOR IV Site : Forearm Antecubital Laterality : Left Left Catheter Size : 20 18 Catheter Type : Protective Infiltration Score : 0 Phlebitis Score : 0 ALMA TEIXEIRA RN - 03/24/2015 3:24 ATHLETIC INSTRUCTOR ALMA TEIXEIRA RN - 03/24/2015 3:24 ATHLETIC INSTRUCTOR Hendrich II Fall Risk Confusion/Disorientation Hendrich : [...] 5 ALMA TEIXEIRA RN - 03/24/2015 3:24 ATHLETIC INSTRUCTOR Safe Patient Handling Safe Pt Handling Independent : No Safe Pt Handling Supervision/Minimal Assistance : Yes - Unmotorized Equipment Safe Pt Handling Equipment Rec : Unmotorized Equipment ALMA TEIXEIRA RN - 03/24/2015 3:24 ATHLETIC INSTRUCTOR Source: [employer] Document Id: [id number] ATHLETIC INSTRUCTOR!5 ETIC INSTRUCTOR Miscellaneous - Tanya Miller RLaraNLara - 03/23/2015 8:46 PM CST Adult Activities of Daily Living Adult Activities of Daily Living Entered On: 03/23/2015 20:49 ATHLETIC INSTRUCTOR Performed On: 03/23/2015 20:46 ATHLETIC INSTRUCTOR by TANYA MILLER RN ADLs I Activity [...] Bilateral TANYA MILLER RN - 03/23/2015 20:46 ATHLETIC INSTRUCTOR ADLs II Bowel Movement Last Date : 03/22/2015 ATHLETIC INSTRUCTOR Standard Safety : LOUISE/SCD/ED on per policy, Bed alarm ON, Bed in low position, Call device within reach, Gait belt, ID band check, Night light, Non-Slip footwear, Personal safety alarm ON, Rounds every 1 hour, Upper/Half-length side- rails up, Wheels locked TANYA MILLER RN - 03/23/2015 20:46 ATHLETIC INSTRUCTOR I&O Oral Intake : 200 mL Urine Voided : 300 mL GABRIEL TANYA MICKIE - 03/23/2015 20:46 ATHLETIC INSTRUCTOR Source: [facility] [employer] Document Id: [id number] ATHLETIC INSTRUCTOR!13 ETIC INSTRUCTOR Miscellaneous - Tanya Miller R.N. - 03/23/2015 8:21 PM CST Adult Activities of Daily Living Adult Activities of Daily Living Entered On: 03/23/2015 20:23 ATHLETIC INSTRUCTOR Performed On: 03/23/2015 20:21 ATHLETIC INSTRUCTOR by TANYA MILLER RN ADLs I Patient Position : Sitting in chair GABRIEL TANYA MICKIE - 03/23/2015 20:21 ATHLETIC INSTRUCTOR ADLs II Hygiene Assistance Grid Back Rub : Refused Oral Care : Moderate assistance Estefania Care : Independent GABRIEL TANYA MICKIE - 03/23/2015 20:21 ATHLETIC INSTRUCTOR Bowel Movement Last Date : 03/22/2015 ATHLETIC INSTRUCTOR Standard Safety : LOUISE/SCD/ED on per policy, Bed in low position, Call device within reach, Chair Alarm, Gait belt, ID band check, Night light, Non-Slip footwear, Personal safety alarm ON, Rounds every1 hour, Upper/Half-length side- rails up GABRIEL TANYA MICKIE - 03/23/2015 20:21 ATHLETIC INSTRUCTOR I&O Oral Intake : 200 mL Urine Voided : 300 mL GABRIEL [facility] - 03/23/2015 20:21 ATHLETIC INSTRUCTOR ADLs Adult Nutrition Diet Type : Diet -- 03/23/15 12:16:00 ATHLETIC INSTRUCTOR, Transition, advance to regular Feeding Assistance : Independent Dinner : 100 % GABRIEL TANYA MICKIE - 03/23/2015 20:21 ATHLETIC INSTRUCTOR Source: [facility] [employer] Document Id: [id number] ATHLETIC INSTRUCTOR!17 ETIC INSTRUCTOR Rukhsanacellporsha - Tanya Miller R.N. - 03/23/2015 5:00 PM CST Adult Activities of Daily Living Adult Activities of Daily Living Entered On: 03/23/2015 17:01 ATHLETIC INSTRUCTOR Performed On: 03/23/2015 17:00 ATHLETIC INSTRUCTOR by TANYA MILLER RN ADLs I Patient Position : Sitting in chair TANYA MILLER RN - 03/23/2015 17:00 ATHLETIC INSTRUCTOR ADLs II Bowel Movement Last Date : 03/22/2015 ATHLETIC INSTRUCTOR Standard Safety : LOUISE/SCD/ED on per policy, Bed in low position, Call device within reach, Chair Alarm, Gait belt, ID band check, Night light, Non-Slip footwear, Personal safety alarm ON, Rounds every1 hour, Wheels locked TANYA MILLER RN - 03/23/2015 17:00 ATHLETIC INSTRUCTOR Source: [facility] [employer] Document Id: [id number] ATHLETIC INSTRUCTOR!6 ETIC INSTRUCTOR Miscellaneous - Tanya Miller R.N. - 03/23/2015 4:00 PM CST Adult Postprocedure Assessment Adult Postprocedure Assessment Entered On: 03/23/2015 16:24 ATHLETIC INSTRUCTOR Performed On: 03/23/2015 16:00 ATHLETIC INSTRUCTOR by TANYA MILLER RN Vital Signs Temperature Core : 36.3 DegC(Converted to: 97.3 DegF) (LOW) Peripheral Pulse Rate : 61 /min Respiratory Rate : 20 /min Systolic Blood Pressure : 97 mmHg Diastolic Blood Pressure : 52 mmHg NIBP Mean : 67 mmHg (Comment: 64 [TANYA MILLER RN - 03/23/2015 16:22 ATHLETIC INSTRUCTOR] ) BP Location : Left upper extremity SpO2 : 95 % Oxygen Saturation Monitoring Frequency : Continuous Oxygen Therapy : Room air Height : 167 cm(Converted to: 5 ft 6 inch(es)) TANYA MILLER RN - 03/23/2015 16:22 ATHLETIC INSTRUCTOR General Level of Consciousness : Alert Orientation : Oriented x 3 Skin Color : Normal for ethnicity Skin Description : Dry Skin Temperature : Warm Pain Symptoms : No TANYA MILLER RN - 03/23/2015 16:22 ATHLETIC INSTRUCTOR Incision/Wound Incision/Wound Care Grid Activity : Assessed Type : Surgical incision Location : Shoulder Laterality : Right Drainage Amount : None Wound Dressing : Other: Aqua cell and sling TANYA MILLER RN - 03/23/2015 16:22 ATHLETIC INSTRUCTOR Source: [facility] [employer] Document Id: [id number] ATHLETIC INSTRUCTOR!29 ETIC INSTRUCTOR Miscellaneous - Tanya Miller R.N. - 03/23/2015 3:45 PM CST Adult Postprocedure Assessment Adult Postprocedure Assessment Entered On: 03/23/2015 16:22 ATHLETIC INSTRUCTOR Performed On: 03/23/2015 15:45 ATHLETIC INSTRUCTOR by TANYA MILLER RN Vital Signs Height : 167 cm(Converted to: 5 ft 6 inch(es)) TANYA MILLER RN - 03/23/2015 15:45 ATHLETIC INSTRUCTOR General Level of Consciousness : Alert Orientation : Oriented x 3 Skin Color : Normal for ethnicity Skin Description : Dry Skin Temperature : Warm Pain Symptoms : No GABRIEL TANYA MICKIE - 03/23/2015 15:45 ATHLETIC INSTRUCTOR Cardiovascular Heart Rhythm : Regular Nail Bed Color : Helmetta Edema Assessment : No Capillary Refill : Less than 2 seconds TANYA MILLER RN - 03/23/2015 15:45 ATHLETIC INSTRUCTOR Radial Pulse, Left : 2+ Normal Radial Pulse, Right : 2+ Normal Dorsalis Pedis Pulse, Left : 2+ Normal Dorsalis Pedis Pulse, Right : 2+ Normal TANYA MILLER RN - 03/23/2015 15:45 ATHLETIC INSTRUCTOR Antiembolism Device : Sequential Compression Device Antiembolism Device Laterality : Bilateral TANAY MILLER RN - 03/23/2015 15:45 ATHLETIC INSTRUCTOR Respiratory Respiratory Patient Stated Symptoms : None Incentive Spirometry Volume Achieved : 2,200 mL Respirations : Unlabored Distress : None Respiratory Pattern : Regular All Lobes Breath Sounds : Clear Cough and Deep Breathe : Done Cough : None Sputum Amount : None TANYA MILLER RN - 03/23/2015 15:45 ATHLETIC INSTRUCTOR Incentive Spirometry Incentive Spirometry Volume Achieved : 2,200 mL Incentive Spirometry Times Performed : 5 Incentive Spirometry Patient Effort : Good Pt Participation in Treatment - IS : Cooperative Cough and Deep Breathe : Done Spontaneous Cough : No Cough : None TANYA MILLER RN - 03/23/2015 15:45 ATHLETIC INSTRUCTOR GI/ Nausea Symptoms : No Nursing Interventions : Patient given oral fluids, Patient given food Passing Flatus : Yes Abdomen Palpation : Non-Tender, Soft Bowel Sounds All Quadrants : Present Abdomen Description : Rounded Urinary Elimination : Voiding, no difficulties Urine Color : Yellow REYNA, October03/23/2015 15:45 ATHLETIC INSTRUCTOR Integumentary Integumentary Patient Stated Symptoms : None Skin Turgor : Elastic Skin Integrity : Not intact Mucous Membrane Color : Helmetta Mucous Membrane Description : Moist REYNA, October03/23/2015 15:45 ATHLETIC INSTRUCTOR Archival Records Clerk Integumentary - Grid Archival Records Clerk : Sequential Compression Device Assessment/Action : Removed and reapplied Skin Appearance : Normal [facility], October03/23/2015 15:45 ATHLETIC INSTRUCTOR Skin Color : Normal for ethnicity Skin Description : Dry Skin Temperature : Warm , October03/23/2015 15:45 ATHLETIC INSTRUCTOR Incision/Wound Incision/Wound Care Grid Activity : Assessed Type : Surgical incision Location : Shoulder Laterality : Right Drainage : None Wound Dressing : Other: Aqua cell / sling in place with pillow support to elbow [facility], October03/23/2015 15:45 ATHLETIC INSTRUCTOR Peripheral IV Peripheral IV Assess/Intervention Grid Peripheral IV #1 Peripheral IV #2 IV Activity : Discontinue Start Number of Attempts : 1 Date of Insertion : 03/23/2015 ATHLETIC INSTRUCTOR 03/23/2015 ATHLETIC INSTRUCTOR IV Site : Forearm Antecubital Laterality : Left Left Catheter Size : 20 18 Catheter Type : Protective Infiltration Score : 0 Phlebitis Score : 0 [facility], October03/23/2015 15:45 ATHLETIC INSTRUCTOR [facility], October03/23/2015 15:45 ATHLETIC INSTRUCTOR I&O Oral Intake : 200 mL Urine Voided : 400 mL [facility], October03/23/2015 15:45 ATHLETIC INSTRUCTOR Nutrition Dinner : 100 % [facility], October03/23/2015 15:45 ATHLETIC INSTRUCTOR Lower Extremity Lower Extremity Central Pulses Grid Femoral Pulse, Left : 2+ Normal Femoral Pulse, Right : 2+ Normal [facility], October03/23/2015 15:45 ATHLETIC INSTRUCTOR Lower Extremity Peripheral Pulses Grid Popliteal Pulse, Left : 2+ Normal Popliteal Pulse, Right : 2+ Normal Posttibial Pulse, Left : 2+ Normal Posttibial Pulse, Right : 2+ Normal Dorsalis Pedis Pulse, Left : 2+ Normal Dorsalis Pedis Pulse, Right : 2+ Normal [facility], October03/23/2015 15:45 ATHLETIC INSTRUCTOR Upper Extremity Nail Bed Color Hands Grid Left Hand : Helmetta Right Hand : Helmetta GABRIEL, October03/23/2015 15:45 ATHLETIC INSTRUCTOR Capillary Refill Hand Grid Left Hand : < 2 seconds Right Hand : < 2 seconds GABRIEL, October03/23/2015 15:45 ATHLETIC INSTRUCTOR Upper Extremity Color Grid Left : Helmetta Right : Helmetta GABRIEL, October03/23/2015 15:45 ATHLETIC INSTRUCTOR Upper Extremity Temperature Grid Left : Warm Right : Warm GABRIEL, October03/23/2015 15:45 ATHLETIC INSTRUCTOR NV Upper Extremity Pulses Grid Radial Pulse, Left : 2+ Normal Radial Pulse, Right : 2+ Normal Brachial Pulse, Left : 2+ Normal Brachial Pulse, Right : 2+ Normal GABRIEL, October03/23/2015 15:45 ATHLETIC INSTRUCTOR NV Upper Extremity Sensation Grid Dorsal Web Space Thumb/Index Finger Right : Numbness Distal Fat Pad/Small Finger Right : Numbness Distal Fat Pad/Index Finger Right : Numbness GABRIEL, October03/23/2015 15:45 ATHLETIC INSTRUCTOR Activity Activity Status ADL : Ambulating in malone, Ambulating in room, Bathroom privileges, Up to chair, Up with assistance Activity Assistance : Moderate 1 person assistance Assistive Device : Gait belt, Other: sling in place Positioning/Pressure Reducing Devices : Pillow GABRIEL, October03/23/2015 15:45 ATHLETIC INSTRUCTOR Vale Vale Agitation Sedation Scale (RASS) : Alert and calm RASS Score : 0 HUGOOctober03/23/2015 15:45 ATHLETIC INSTRUCTOR Hawk Sensory Perception Hawk : No impairment Moisture Hawk : Rarely moist Activity Hawk : Walks occasionally Mobility Hawk : Slightly limited Nutrition Hawk : Adequate Friction and Shear Hawk : No apparent problem Hawk Score : 20 REYNAOctober03/23/2015 15:45 ATHLETIC INSTRUCTOR Hendrich II Fall Risk Confusion/Disorientation Hendrich : [...] Score Hendrich II : 5 October03/23/2015 15:45 ATHLETIC INSTRUCTOR Safe Patient Handling Safe Pt Handling Independent : Yes - No equipment needed Safe Pt Handling Equipment Rec : No Equipment Needed HUGOOctober03/23/2015 15:45 ATHLETIC INSTRUCTOR Education General Patient Education [employer] Topics : [...] understanding TANYA MILLER RN - 03/23/2015 15:45 ATHLETIC INSTRUCTOR Source: [facility] [employer] Document Id: [id number] ATHLETIC INSTRUCTOR!165 ETIC INSTRUCTOR Miscellaneous - Radha Younger R.N. - 03/23/2015 1:15 PM CST Adult Postprocedure Assessment Adult Postprocedure Assessment Entered On: 03/23/2015 13:21 ATHLETIC INSTRUCTOR Performed On: 03/23/2015 13:15 ATHLETIC INSTRUCTOR by RADHA YOUNGER RN Vital Signs Height : 167 cm(Converted to: 5 ft 6 inch(es)) RADHA YOUNGER RN - 03/23/2015 13:15 ATHLETIC INSTRUCTOR General Level of Consciousness : Alert Orientation : Appropriate for age Skin Color : Normal for ethnicity Skin Description : Dry Skin Temperature : Warm Pain Symptoms : No RADHA YOUNGER RN - 03/23/2015 13:15 ATHLETIC INSTRUCTOR Cardiovascular Heart Rhythm : Regular Nail Bed Color : Helmetta Edema Assessment : No Capillary Refill : Less than 2 seconds RADHA YOUNGER RN - 03/23/2015 13:15 ATHLETIC INSTRUCTOR Radial Pulse, Left : 2+ Normal Radial [...] Normal RADHA YOUNGER RN - 03/23/2015 13:15 ATHLETIC INSTRUCTOR Central Pulses Grid Carotid Pulse, Left : 2+ Normal Carotid Pulse, Right : 2+ Normal Femoral Pulse, Left : 2+ Normal Femoral Pulse, Right : 2+ Normal RADHA YOUNGER - 03/23/2015 13:15 ATHLETIC INSTRUCTOR Antiembolism Device : Sequential Compression Device Antiembolism Device Laterality : Bilateral CARISA RADHA - 03/23/2015 13:15 ATHLETIC INSTRUCTOR Respiratory Respiratory Patient Stated Symptoms : None Distress : None Respiratory Pattern : Regular All Lobes Breath Sounds : Clear Cough and Deep Breathe : Done Cough : None Sputum Color : Clear Suction : None Airway : Patent RADHA YOUNGER - 03/23/2015 13:15 ATHLETIC INSTRUCTOR Incentive Spirometry Incentive Spirometry Patient Effort : Good Pt Participation in Treatment - IS : Cooperative Cough and Deep Breathe : Done Spontaneous Cough : Yes Cough : None RADHA YOUNGER - 03/23/2015 13:15 ATHLETIC INSTRUCTOR GI/ Nausea Symptoms : No RADHA YOUNGER - 03/23/2015 13:15 ATHLETIC INSTRUCTOR Integumentary Integumentary Patient Stated Symptoms : None Skin Turgor : Elastic Skin Integrity : Not intact Mucous Membrane Color : Helmetta Mucous Membrane Description : Moist Skin Color : Normal for ethnicity Skin Description : Dry Skin Temperature : Warm RADHA YOUNGER - 03/23/2015 13:15 ATHLETIC INSTRUCTOR Incision/Wound Incision/Wound Care Grid Activity : Assessed Type : Surgical incision Location : Shoulder Laterality : Right RADHA YOUNGER - 03/23/2015 13:15 ATHLETIC INSTRUCTOR Peripheral IV Peripheral IV Assess/Intervention Grid Peripheral IV #1 Peripheral IV #2 IV Activity : Discontinue Start Number of Attempts : 1 Date of Insertion : 03/23/2015 ATHLETIC INSTRUCTOR 03/23/2015 ATHLETIC INSTRUCTOR IV Site : Forearm Antecubital Laterality : Left Left Catheter Size : 20 18 Catheter Type : Protective Site Condition : No complications RADHA YOUNGER - 03/23/2015 13:15 ATHLETIC INSTRUCTOR RADHA YOUNGER - 03/23/2015 13:15 ATHLETIC INSTRUCTOR Upper Extremity Nail Bed Color Hands Grid Left Hand : [place] Right Hand : [place] RADHA YOUNGER - 03/23/2015 13:15 ATHLETIC INSTRUCTOR Capillary Refill Hand Grid Left Hand : < 2 seconds Right Hand : < 2 seconds RADHA YOUNGER - 03/23/2015 13:15 ATHLETIC INSTRUCTOR Upper Extremity Color Grid Left : [place] Right : [place] RADHA YOUNGER - 03/23/2015 13:15 ATHLETIC INSTRUCTOR Upper Extremity Temperature Grid Left : Warm Right : Warm RADHA YOUNGER - 03/23/2015 13:15 ATHLETIC INSTRUCTOR NV Upper Extremity Sensation Grid Dorsal Web Space Thumb/Index Finger Right : Numbness Distal Fat Pad/Small Finger Right : Numbness Distal Fat Pad/Index Finger Right : Numbness RADHA YOUNGER RN - 03/23/2015 13:15 ATHLETIC INSTRUCTOR Activity Patient Position : Elevate head of bed 30 degrees, Sitting in bed Activity Status ADL : Reposition every 2 hours, Up with assistance Activity Assistance : Moderate 1 person assistance Assistive Device : Gait belt RADHA YOUNGER - 03/23/2015 13:15 ATHLETIC INSTRUCTOR Modified Elenita Activity : Moves 4 extremities voluntarily or on command Respiratory : Able to deep breathe and cough freely Circulation : BP 20-49% of preanesthetic level Consciousness : Fully awake O2 Saturation : Needs oxygen to maintain > 92% Elenita l Score : 8 RADHA YOUNGER RN - 03/23/2015 13:15 ATHLETIC INSTRUCTOR PARSAP Activity Status : Moves 4 extremities [...] 19 RADHA YOUNGER RN - 03/23/2015 13:15 ATHLETIC INSTRUCTOR Vale Vale Agitation Sedation Scale (RASS) : Alert and calm RASS Score : 0 RADHA YOUNGER - 03/23/2015 13:15 ATHLETIC INSTRUCTOR Hawk Sensory Perception Hawk : No impairment Moisture Hawk : Rarely moist Activity Hawk : Walks occasionally Mobility Hawk : Slightly limited Nutrition Hawk : Adequate Friction and Shear Hawk : No apparent problem Hawk Score : 20 RADHA YOUNGER - 03/23/2015 13:15 ATHLETIC INSTRUCTOR Hendrich II Fall Risk Confusion/Disorientation Hendrich : [...] : 4 RADHA YOUNGER - 03/23/2015 13:15 ATHLETIC INSTRUCTOR Safe Patient Handling Safe Pt Handling Independent : No Safe Pt Handling Supervision/Minimal Assistance : Yes - Unmotorized Equipment Safe Pt Handling Equipment Rec : Unmotorized Equipment RADHA YOUNGER RN - 03/23/2015 13:15 ATHLETIC INSTRUCTOR Education General Patient Education Powergrid Topics : Pain Management, Safety, fall RADHA YOUNGER RN - 03/23/2015 13:15 ATHLETIC INSTRUCTOR Source: [facility] POWERCHART Document Id: [id number] ATHLETIC INSTRUCTOR!154 ETIC INSTRUCTOR Miscellaneous - Arti Almaguer R.N. - 03/23/2015 12:59 PM CST Adult Postprocedure Assessment Adult Postprocedure Assessment Entered On: 03/23/2015 13:03 ATHLETIC INSTRUCTOR Performed On: 03/23/2015 12:59 ATHLETIC INSTRUCTOR by ARTI ALMAGUER RN Vital Signs Temperature [...] inch(es)) ARTI ALMAGUER RN - 03/23/2015 12:59 ATHLETIC INSTRUCTOR General Level of Consciousness : Alert Orientation : Oriented x 3 Skin Color : Normal for ethnicity Skin Description : Normal Skin Temperature : Warm Pain Symptoms : No (Comment: Denies pain [ARTI ALMAGUER RN - 03/23/2015 12:59 ATHLETIC INSTRUCTOR] ) ARTI ALMAGUER RN - 03/23/2015 12:59 ATHLETIC INSTRUCTOR Upper Extremity Nail Bed Color Hands Grid Left Hand : [place] Right Hand : [place] ARTI ALMAGUER RN - 03/23/2015 12:59 ATHLETIC INSTRUCTOR Capillary Refill Hand Grid Left Hand : < 2 seconds Right Hand : < 2 seconds ARTI ALMAGUER RN - 03/23/2015 12:59 ATHLETIC INSTRUCTOR Upper Extremity Color Grid Left : [place] Right : [place] ARTI ALMAGUER RN - 03/23/2015 12:59 ATHLETIC INSTRUCTOR Upper Extremity Temperature Grid Left : Warm Right : Warm ARTI ALMAGUER RN - 03/23/2015 12:59 ATHLETIC INSTRUCTOR NV Upper Extremity Sensation Grid Dorsal Web Space Thumb/Index Finger Right : Numbness (Comment: due to block [ARTI ALMAGUER RN - 03/23/2015 12:59 ATHLETIC INSTRUCTOR] ) Distal Fat Pad/Small Finger Right : Numbness (Comment: due to block [ARTI ALMAGUER RN - 03/23/2015 12:59 ATHLETIC INSTRUCTOR] ) Distal Fat Pad/Index Finger Right : Numbness (Comment: due to block [ARTI ALMAGUER RN - 03/23/2015 12:59 ATHLETIC INSTRUCTOR] ) ARTI ALMAGUER RN - 03/23/2015 12:59 ATHLETIC INSTRUCTOR Source: [facility] CanlifeCHART Document Id: [id number] ATHLETIC INSTRUCTOR!37 ETIC INSTRUCTOR Transfer of Care - Shira Dias R.N. - 03/23/2015 11:58 AM CST Intrahospital Transfer Intrahospital Transfer Entered On: 03/23/2015 11:59 ATHLETIC INSTRUCTOR Performed On: 03/23/2015 11:58 ATHLETIC INSTRUCTOR by SHIRA DIAS RN Transfer Intrahospital Transfer Mode : Cart Nurse Receiving Report : pascale CORADO Date/Time Nurse Received Report : 03/23/2015 11:45 ATHLETIC INSTRUCTOR Reason for Intrahospital Transfer : Improved condition Blood Products Received : No Transfer Notification : Spouse SHIRA DIAS RN - 03/23/2015 11:58 ATHLETIC INSTRUCTOR Source: [facility] [place] Document Id: [id number] ATHLETIC INSTRUCTOR!8 ETIC INSTRUCTOR Miscellaneous - Shira Dias R.N. - 03/23/2015 11:51 AM CST Adult Postprocedure Assessment Adult Postprocedure Assessment Entered On: 03/23/2015 11:58 ATHLETIC INSTRUCTOR Performed On: 03/23/2015 11:51 ATHLETIC INSTRUCTOR by SHIRA DIAS RN Vital Signs Height : 167 cm(Converted to: 5 ft 6 inch(es)) SHIRA DIAS RN - 03/23/2015 11:57 ATHLETIC INSTRUCTOR Incision/Wound Incision/Wound Care Grid Activity : Assessed Type : Surgical incision Location : Shoulder Laterality : Right Drainage : None SHIRA DIAS RN - 03/23/2015 11:57 ATHLETIC INSTRUCTOR Source: [facility] POWERCHART Document Id: [id number] ATHLETIC INSTRUCTOR!11 ETIC INSTRUCTOR Miscellaneous - Shira Dias R.N. - 03/23/2015 10:55 AM CST Adult Postprocedure Assessment Adult Postprocedure Assessment Entered On: 03/23/2015 11:06 ATHLETIC INSTRUCTOR Performed On: 03/23/2015 10:55 ATHLETIC INSTRUCTOR by SHIRA DIAS RN Vital Signs Respiratory Rate : 16 /min Oxygen Flow Rate : 2 L/min Oxygen Therapy : Nasal cannula Height : 167 cm(Converted to: 5 ft 6 inch(es)) SHIRA DIAS RN - 03/23/2015 11:02 ATHLETIC INSTRUCTOR General Level of Consciousness : Drowsy Orientation : Oriented x 3 Skin Color : Normal for ethnicity Skin Description : Dry Skin Temperature : Warm Pain Symptoms : No SHIRA DIAS RN - 03/23/2015 11:02 ATHLETIC INSTRUCTOR Integumentary Integumentary Patient Stated Symptoms : None Skin Integrity : Not intact SHIRA DIAS RN - 03/23/2015 11:02 ATHLETIC INSTRUCTOR Incision/Wound Incision/Wound Care Grid Activity : Assessed Type : Surgical incision Location : Shoulder Laterality : Right Drainage : None SHIRA DIAS RN - 03/23/2015 11:02 ATHLETIC INSTRUCTOR Peripheral IV Peripheral IV Assess/Intervention Grid Peripheral IV #1 Peripheral IV #2 IV Activity : Discontinue Start Number of Attempts : 1 Date of Insertion : 03/23/2015 ATHLETIC INSTRUCTOR 03/23/2015 ATHLETIC INSTRUCTOR IV Site : Forearm Antecubital Laterality : Left Left Catheter Size : 20 18 Catheter Type : Protective Site Condition : No complications Comments (Comment: discontinued in OR, positional [SHIRA DIAS RN - 03/23/2015 11:02 ATHLETIC INSTRUCTOR] ) (Comment: started in OR [SHIRA DIAS RN - 03/23/2015 11:02 ATHLETIC INSTRUCTOR] ) SHIRA DIAS RN - 03/23/2015 11:02 ATHLETIC INSTRUCTOR SHIRA DIAS RN - 03/23/2015 11:02 ATHLETIC INSTRUCTOR I&O Other Intake : 1,400 mL Urine Voided : 300 mL Estimated Blood Loss : 300 mL SHIRA DIAS RN - 03/23/2015 11:02 ATHLETIC INSTRUCTOR Modified Elenita Activity : Moves 4 extremities voluntarily or on command Respiratory : Able to deep breathe and cough freely Circulation : BP +/- 20% of preprocedural level or not unusually high or low Consciousness : Arouses on calling O2 Saturation : Needs oxygen to maintain > 92% Elenita l Score : 8 SHIRA DIAS RN - 03/23/2015 11:02 ATHLETIC INSTRUCTOR Source: [employer] Document Id: [id number] ATHLETIC INSTRUCTOR!52 ETIC INSTRUCTOR Miscellaneous - Brandi Millard RSelvin - 03/23/2015 6:38 AM CST Adult Admission Assessment Adult Admission Assessment Entered On: 03/23/2015 6:42 ATHLETIC INSTRUCTOR Performed On: 03/23/2015 6:38 ATHLETIC INSTRUCTOR by BRANDI MILLARD RN Respiratory Respiratory Patient Stated Symptoms : None Respirations : Unlabored Distress : None Respiratory Pattern : Regular All Lobes Breath Sounds : Clear Cough : None BRANDI MILLARD RN - 03/23/2015 6:38 ATHLETIC INSTRUCTOR Cardiovascular CV Patient Stated Symptoms : None Antiembolism Device Yes/No : Yes BRANDI MILLARD RN - 03/23/2015 6:38 ATHLETIC INSTRUCTOR Antiembolism Device Antiembolism Device Laterality : Bilateral BRANDI MILLARD RN - 03/23/2015 6:38 ATHLETIC INSTRUCTOR Neurological Neuro Patient Stated Symptoms : None Orientation : Oriented x 3 Level of Consciousness : Alert Gait : Steady Swallowing Difficulty/Aspiration Risk : None BRANDI MILLARD RN - 03/23/2015 6:38 ATHLETIC INSTRUCTOR [place] Coma Eye Opening Response Pierre : Spontaneously Best Verbal Response [place] : Oriented Best Motor Response Pierre : Obeys simple commands [place] Coma Score : 15 BRANDI MILLARD RN - 03/23/2015 6:38 ATHLETIC INSTRUCTOR Psycho/Emotional Pain Symptoms : No BRANDI MILLARD RN - 03/23/2015 6:38 ATHLETIC INSTRUCTOR Gastrointestinal GI Patient Stated Symptoms : None Bowel Movement Last Date : 03/22/2015 ATHLETIC INSTRUCTOR BRANDI MILLARD RN - 03/23/2015 6:38 ATHLETIC INSTRUCTOR Integumentary Skin Integrity : Intact BRANDI MILLRAD RN - 03/23/2015 6:38 ATHLETIC INSTRUCTOR Peripheral IV Peripheral IV Assess/Intervention Grid Peripheral IV #1 IV Activity : Start Number of Attempts : 1 Date of Insertion : 03/23/2015 ATHLETIC INSTRUCTOR IV Site : Forearm Laterality : Left Catheter Size : 20 BRANDI MILLARD RN - 03/23/2015 7:27 ATHLETIC INSTRUCTOR Hendrich II Fall Risk Confusion/Disorientation Hendrich : [...] 1 BRANDI MILLARD RN - 03/23/2015 6:38 ATHLETIC INSTRUCTOR Source: [facility] Document Id: [id number] ATHLETIC INSTRUCTOR!10 ETIC INSTRUCTOR Miscellaneous - Brandi Millard R.N. - 03/23/2015 6:38 AM CST Adult Admission History Adult Admission History Entered On: 03/23/2015 6:46 ATHLETIC INSTRUCTOR Performed On: 03/23/2015 6:38 ATHLETIC INSTRUCTOR by BRANDI MILLARD RN General Info Preferred Name : Ryley Admitted From : Non-Health Care Facility Point of Origin Mode of Arrival : Ambulatory Accompanied By : Spouse Chief Complaint : right shoulder Preferred Communication Mode : Verbal Information Given By : Patient Languages : Anguillan Have you received chemotherapy in last 48 hours? : No Is Patient Female and 13-50 no hysterectomy : No BRANDI MILLARD RN - 03/23/2015 6:38 ATHLETIC INSTRUCTOR Anesth/Transfusion Anesthesia/Transfusions : Prior anesthesia reaction Anesthesia Reaction : Excessive post op nausea Transfusion Acceptable in Emergency : Yes Baptist/Other Objections to Blood Transfusions : No BRANDI MILLARD RN - 03/23/2015 6:38 ATHLETIC INSTRUCTOR Nutrition Have you recently lost weight without trying? : No Decreased Appetite Nutrition : No Tube Feedings or Parenteral Nutrition : No MST Score : 0 BRANDI MILLARD RN - 03/23/2015 6:38 ATHLETIC INSTRUCTOR Home Environment Current Daily Living Assistance : None Sensory Deficits : None BRANDI MILLARD RN - 03/23/2015 6:38 ATHLETIC INSTRUCTOR Dependent Habits Alcohol Use : No BRANDI MILLARD RN - 03/23/2015 6:38 ATHLETIC INSTRUCTOR Caffeine Use Grid Caffeine Use : Current Type : Coffee Frequency : Daily BRANDI MILLARD RN - 03/23/2015 6:38 ATHLETIC INSTRUCTOR Psychosocial Adult Domestic Abuse Concerns : None Behavioral Health Screen/Safety Assmt : No Baptist Preference : Adventism BRANDI MILLARD RN - 03/23/2015 6:38 ATHLETIC INSTRUCTOR Advance Directive Advanced Directives : No Advance Directive Additional Information : No BRANDI MILLARD RN - 03/23/2015 6:38 ATHLETIC INSTRUCTOR Educ Needs Patient/Family Education Needs : Postoperative instructions, Preoperative instructions BRANDI MILLARD RN - 03/23/2015 6:38 ATHLETIC INSTRUCTOR Learning Style Preference Adult Grid Patient : Verbal explanation Family : Verbal explanation BRANDI MILLARD RN - 03/23/2015 6:38 ATHLETIC INSTRUCTOR Source: [facility] POWERCHART Document Id: [id number] ATHLETIC INSTRUCTOR!44 ETIC INSTRUCTOR documented in this encounter Plan of Treatment Not on filedocumented as of this encounter Procedures Procedure Name Priority Date/Time Associated Comments Diagnosis CBC WITHOUT Routine 03/24/2015 5:50 AM Results f or this DIFFERENTIAL, B ATHLETIC INSTRUCTOR procedure ar e in the results section. COMPREHENSIVE Routine 03/24/2015 5:50 AM Results for this METABOLIC PANEL, S/P ATHLETIC INSTRUCTOR procedu re are in the results section. documented in this encounter Results (ABNORMAL) CBC without Differential (03/24/2015 5:50 AM ATHLETIC INSTRUCTOR) Analysis Performed At Patho logist Time Signature Hematocrit 36.6 (L) 38.8 - POWERCHART 50.0 Hemoglobin 12.5 (L) 13.5 - POWERCHART 17.5 GDL MCV 90.6 81.0 - POWERCHART 95.0 FL Platelet Count 214 150 - 450 POWERCHART X109L Erythrocytes 4.04 (L) 4.32 - POWERCHART 5.72 H6394A HX RDW 13.8 11.8 - POWERCHART 15.6 Leukocytes 10.8 (H) 3.5 - 10.5 POWERCHART X109L Specimen (Source) Anatomical Collection Method Collection Time Re ceived Time Location / / Volume Laterality Blood 03/24/2015 5:50 AM ATHLETIC INSTRUCTOR Karel Coronel M.D. LAB BLOOD ADD-ON Performing Organization Address City/State/ZIP Code Phon e Number POWERCHART (ABNORMAL) CMP (Comprehensive Metabolic Panel) (03/24/2015 5:50 AM ATHLETIC INSTRUCTOR) [facility] gist Method Time Signature Chloride, S [...] Total 25 22 - 29 POWERCHART MMOLL Creatinine 0.95 0.80 - POWERCHART 1.30 MGDL Glucose, Fasting, S 110 (H) 70 - 99 POWERCHART MGDL Total Protein, S 6.0 (L) 6.3 - 7.9 POWERCHART GDL Calcium, Total, S 8.8 8.8 - POWERCHART 10.3 MGDL Albumin, S 3.4 (L) 3.5 - 5.0 POWERCHART GDL eGFR Black/ >60 >=60 POWERCHART Jordanian [id number] 2 HXeGFR (MDRD) >60 >=60 POWERCHART [id number] 2 Comment: Results are in mL/min/1.73m CKD [...] / Volume Laterality Blood 03/24/2015 5:50 AM ATHLETIC INSTRUCTOR Karel Coronel M.D. LAB BLOOD ADD-ON Performing Organization Address City/State/ZIP Code Phon e Number POWERCHART documented in this encounter Visit Diagnoses Not on filedocumented in this encounter Additional Health Concerns Assessment Noted Time PHQ-9 Depression Total Score: 2 03/08/2015 11:16 AM CS T documented as of this encounter
--- OUTSIDE RECORDS SUMMARY | 2022-03-08 11:07 | XMS_ITS | Encounter Summary ---
:1940 Author Organization [facility] Address [address] [place] [address] Care Team Providers Name Role Phone Unavailable [...]
--- OUTSIDE RECORDS SUMMARY | 2022-03-08 11:07 | XMS_ITS | Encounter Summary ---
:1940 Author Organization [facility] Address [address] [place] [address] Care Team Providers Name Role Phone Unavailable [...] PM 4 3:43 CDT PM CDT Narrative [facility] - 09/09/2003 3:43 PM CDT ?09/09/2003 General Biopsy ? ([id number]) ? Requested By: ??Giulia Gonzalez ??[phone] ?? Additional Physician: ??Raymundo hermosillo M.D. [id number] ? TISSUE DESCRIPTION: [id number] A1 ?? A. ??Sigmoid/Rectum, Colon biopsy: ??(5 pieces 0.1 - 0.5 cm. in diameter) ?DIAGNOSIS: ?? Colon, sigmoid and rectum, polyps, endo scopic biopsy: ??Fragments of hyperplastic polyps. ? 09/12/03 ??Shelly Mcnamara M.D. [id number] ? Procedure Note 07/26/2017 09/09/2003 General Biopsy ([id number]) Requested By: Marv Pryor M.D. [id number] Additional Physician: Raymundo uriostegui M.D. [id number] TISSUE DESCRIPTION: [id number] A1 A. Sigmoid/Rectum, Colon biopsy: (5 pie rashawn 0.1 - 0.5 cm. in diameter) DIAGNOSIS: Colon, sigmoid and rectum, polyps, endo scopic biopsy: Fragments of hyperplastic polyps. 09/12/03 Shelly Mcnamara M.D. [id number] Historical Provider LAB PATHOLOGY/CYTOLOGY ORDER VALDEZ Performing Organization Address City/State/ZIP Code Phon e Number [facility] - [address] [place], [place] [address] [facility] documented in this encounter Visit Diagnoses Not on filedocumented in this encounter
--- OUTSIDE RECORDS SUMMARY | 2022-03-08 11:07 | XMS_ITS | Encounter Summary ---
:1940 Author Organization [facility] Address [address] [place] [address] Care Team Providers Name Role Phone Unavailable Primary Care Provider Unavailable Encounter Details Date Type Department Care Team Description 01/10/2015 Hospital Encounter HX [facility] Kobe Waller, P.A.-C. Social History Tobacco [...] Kobe Conrad - 01/10/2015 7:41 AM CDT [id number] Mr. Vines is a very pleasant, 74-year-old [...] and it would be done over in [place]. He will let us know if he is interested in pursuing this at which point I would discussed with Dr. Lzao to consult with Dr. Dodson on the possibility of reverse total shoulder to see if they are comfortable with this plan or if they would need to see the patient in clinic first. Either way, he did also bring up the possibility of going to [place]. I told him he is more than [...] which 17 minutes was spent in direct [id number] counseling and educating the patient about his condition, as well as treatment options available to him. Kobe Conrad P.A.-C./dirk Electronically Signed By: KOBE CONRAD PA-C On: 01/16/2015 11:57 AM Source: [facility] MHSDOLBEYNONRADSYS Document Id: [id number] documented in this encounter Miscellaneous Notes Miscellaneous - Kobe Conrad - 01/10/2015 3:46 PM CDT Ambulatory Patient Summary [address] [id number] Visit Information Name: LUIS ARMANDO RYLEY RASHAWNANA [facility] Number: [id number] Current Date: 01/10/2015 15:46:00 Physicians [...] if you dont have one. Go to [email or web address] and click on Create Your Account. Then, follow the directions to complete the online form. Youll be asked for your [facility] number which you can find at the top of this document. Your Goals/Additional instructions: Source: [facility] POWERCHART Document Id: [id number] Miscellaneous - Kobe Conrad - 01/10/2015 3:45 PM CDT Ambulatory Discharge Medication List [address] [id number] Visit Information Name: RYLEY VINES [facility] Number: [id number] Visit Date: 01/10/2015 15:45:59 Attending [...] PA-C Signed On:10-JAN-2015 15:45:53 Additional Information: Source: [facility] POWERCHART Document Id: [id number] Miscellaneous - Trini Dodson R.N. - 01/10/2015 7:59 AM CDT Adult Guest Services Assistant Intake/History Adult Guest Services Assistant Intake/History Entered On: 01/10/2015 8:03 CDT Performed On: 01/10/2015 7:59 CDT by TRINI DODSON cyber special agent Chief Complaint : right shoulder pain for [...] DODSON RN - 01/10/2015 7:59 CDT Source: [employer] Document Id: [id number] CDT!38 documented in this encounter Plan of Treatment Not on filedocumented as of this encounter Visit Diagnoses Not on filedocumented in this encounter
--- OUTSIDE RECORDS SUMMARY | 2022-03-08 11:07 | XMS_ITS | Encounter Summary ---
:1940 Author Organization [facility] Address [address] [place] [address] Care Team Providers Name Role Phone Unavailable Primary Care Provider Unavailable Encounter Details Date Type Department Care Team Description 05/12/2015 Hospital Encounter [facility] Rodger Miranda M.D. [address], [place] [phone] (Wo rk) Social History [...] Duenas M.D. - 05/12/2015 8:14 AM CST [id number] CHIEF COMPLAINT/REASON FOR VISIT Follow up status [...] DUENAS MD On: 05/15/2015 07:26 AM Source: [facility] MHSDOLBEYNONRADSYS Document Id: [id number] RTISING TEACHER documented in this encounter Miscellaneous Notes Miscellaneous - Marv Duenas M.D. - 05/12/2015 9:32 AM CST Ambulatory Patient Summary [facility] [address] [place], [place] [phone] Visit Information Name: RYLEY VINES [facility] Number: [id number] Current Date: 05/12/2015 09:32:50 Physicians [...] if you dont have one. Go to [email or web address] and click on Create Your Account. Then, follow the directions to complete the online form. Youll be asked for your [facility] number which you can find at the top of this document. Your Goals/Additional instructions: Source: [facility] POWERCHART Document Id: [id number] RTISING TEACHER Miscellaneous - Marv Duenas M.D. - 05/12/2015 9:32 AM CST Ambulatory Discharge Medication List [facility] [address] [place], [place] [phone] Visit Information Name: RYLEY VINES [facility] Number: [id number] Visit Date: 05/12/2015 09:32:49 Attending [...] MD Signed On:12-MAY-2015 09:32:43 Additional Information: Source: [facility] POWERCHART Document Id: [id number] RTISING TEACHER Miscellaneous - Annemarie Mcgee LLaraPLaraNLara - 05/12/2015 9:05 AM CST Adult Jet Inspector Intake/History Adult Jet Inspector Intake/History Entered On: 05/12/2015 9:05 ADVERTISING TEACHER Performed On: 05/12/2015 9:05 ADVERTISING TEACHER by ANNEMARIE MCGEE LPN Intake Chief Complaint : Patient here for post op right TSA, [id number], c/o right hand swelling, x-rays obtained ANNEMARIE MCGEE LPN - 05/12/2015 9:05 ADVERTISING TEACHER General Info Information Given By : Patient Preferred Communication Mode : Verbal Languages : Kenyan Is Patient Female and 13-50 no hysterectomy : No ANNEMARIE MCGEE LPN - 05/12/2015 9:05 ADVERTISING TEACHER Subjective Pain Symptoms : No ANNEMARIE MCGEE LPN - 05/12/2015 9:05 ADVERTISING TEACHER Dependent Habits Exposure to Tobacco Smoke : Other: former Smoking Status : Former smoker Tobacco 2A : Yes Tobacco Use/Currently Using : No Tobacco Use/Last 30 Days : No Tobacco Use/Last 12 months : No ANNEMARIE MCGEE LPN - 05/12/2015 9:05 ADVERTISING TEACHER Caffeine Use Grid Caffeine Use : Current Type : Coffee Frequency : Daily ANNEMARIE MCGEE LPN - 05/12/2015 9:05 ADVERTISING TEACHER Source: [employer] Document Id: [id number] ADVERTISING TEACHER!22 RTISING TEACHER documented in this encounter Plan of Treatment Not on filedocumented as of this encounter Visit Diagnoses Not on filedocumented in this encounter Additional Health Concerns Assessment Noted Time PHQ-9 Depression Total Score: 2 03/08/2015 11:16 AM CS T documented as of this encounter
--- OUTSIDE RECORDS SUMMARY | 2022-03-08 11:07 | XMS_ITS | Encounter Summary ---
:1940 Author Organization [facility] Address [address] [place] [address] Care Team Providers Name Role Phone Unavailable [...]
--- OUTSIDE RECORDS SUMMARY | 2022-03-08 11:07 | XMS_ITS | Encounter Summary ---
:1940 Author Organization [facility] Address [address] [place] [address] Care Team Providers Name Role Phone Unavailable Primary Care Provider Unavailable Encounter Details Date Type Department Care Team Description 09/27/2010 Hospital Encounter HX [facility] FAMILY[facility]A Alfonso Cervantes P.A.-C. [address] [place] [phone] (Wo rk) Social History Tobacco Use Types [...] Cervantes P.A.-C. - 09/27/2010 12:00 AM CDT [id number] CHIEF COMPLAINT/REASON FOR VISIT Medication refill. HISTORY [...] 70 years old. 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 FAMILY HISTORY His father [...] CERVANTES PA-C On: 10/03/2010 09:03 AM Source: [facility] MHSDOLBEYNONRADSYS Document Id: [id number] documented in this encounter Miscellaneous Notes Miscellaneous - Ana Cervantes P.A.-C. - 09/27/2010 11:28 AM CDT Ambulatory Vitals Height Weight Ambulatory Vitals Height Weight Entered On: 09/27/2010 11:29 CDT Performed On: 09/27/2010 11:28 CDT by ANA CERVANTES PA-C Vitals/Ht/Wt Systolic Blood Pressure: 117mmHg Diastolic Blood Pressure: 72mmHg NIBP Mean: 87mmHg ANA CERVANTES PA-C - 09/27/2010 11:28 CDT Source: [employer] Document Id: [id number] CDT!5 Miscellaneous - Conversion, Historical Provider Ser - 09/27/2010 8:31 AM CDT Adult Near East Archeology Professor Intake/History Adult Near East Archeology Professor Intake/History Entered On: 09/27/2010 8:33 CDT Performed [...] ELLIS; Reviewed Date: 01/09/2010 14:01 CDT [facility] Document Id: [id number] CDT!25 documented in this encounter Plan of Treatment Not on filedocumented as of this encounter Visit Diagnoses Not on filedocumented in this encounter
[2022-03-08 16:20] LABS: Basophils Absolute Auto 0.03 K/uL (0.00-0.30); Basophils Percent Auto 0.4 % (0.0-3.0); Eosinophils Percent Auto 14.2 % (0.0-7.0); Hematocrit 41.3 % (37.0-53.0); Hemoglobin* 13.1 gm/dL (13.5-17.5); Lymphocytes Percent Auto 14.3 % (20-44); Mean Corpuscular HGB Conc 32 gm/dL (32-36); Mean Corpuscular Hemoglobin 26 pg (26-34); Mean Corpuscular Volume 83 fL (80-100); Monocytes Percent Auto 7.7 % (0.0-11.0); Neutrophils Absolute Auto 4.52 K/uL (1.7-7.0); Neutrophils Percent Auto 63.4 % (42.0-72.0); Platelet Count* 327 K/uL (140-440); RDW Coefficient of Variation % 18.3 % (11.5-15.5); Red Blood Count 4.96 m/uL (4.30-5.90); White Blood Count* 7.13 K/uL (4.50-11.00)
[2022-03-08 16:26] LABS: Slide Review Reflex No
[2022-03-08 16:29] LABS: Albumin* 4.1 g/dL (3.3-5.0); Chloride* 102 mmol/L (96-114)
[2022-03-08 16:30] LABS: Potassium* 4.4 mmol/L (3.6-5.1); Sodium* 139 mmol/L (135-149)
[2022-03-08 16:32] LABS: Bilirubin Total* 2.2 mg/dL (0.1-1.5); Creatinine* 1.2 mg/dL (0.5-1.5); Estimated Glomerular Filt Rate 61 ml/min
[2022-03-08 16:33] LABS: Alanine Aminotransferase* 83 U/L (4-50); Alkaline Phosphatase* 1325 U/L (40-150); Aspartate Amino Transferase* 123 U/L (12-35); Blood Urea Nitrogen* 12 mg/dL (7-30); Calcium* 9.6 mg/dL (8.4-10.6); Carbon Dioxide* 26 mmol/L (20-32); Glucose* 105 mg/dL (60-115); Total Protein* 7.9 g/dL (6.0-8.3)
[2022-03-08 16:36] LABS: C Reactive Protein* 3.6 mg/dL (0.5-1.0)
[2022-03-08 16:58] LABS: Erythrocyte SedimentationRate* 82 mm/hr (2-15)
[2022-03-08 17:04] LABS: PSA Screen* 2.13 ng/mL (0.10-4.00)
[2022-03-08 23:54] LABS: Amylase* 140 U/L (18-89); Lipase* 320 U/L (23-300)
[2022-03-11 23:14] LABS: Bilirubin Direct* 0.8 mg/dL (0.0-0.5)
== END 2022-03-08 10:54 | disposition home or self-care (01) ==
PROVIDERS: PCP Nurse Practitioner Family; Visit Provider Nurse Practitioner Family
DX: R63.4 Abnormal weight loss (principal); D64.9 Anemia, unspecified; R10.9 Unspecified abdominal pain; R10.13 Epigastric pain; Z12.5 Encounter for screening for malignant neoplasm of prostate
CPT/HCPCS: 36415; 80053; 82150; 82248; 83690; 84153; 84443; 85025; 85651; 86140; 87086

== ENCOUNTER 2022-03-12 08:21 | Outpatient (CLI) | payer MEDICARE, BC, SELFPAY ==
--- OUTSIDE RECORDS SUMMARY | 2022-03-12 08:24 | XMS_ITS | Encounter Summary ---
:1940 Author Organization [facility] Address [address] [place] [address] Care Team Providers Name Role Phone None, Pcp Primary Care Provider Unavailable Reason for Visit Reason Onset Date Comments Review Results 10/16/2020 Encounter Details Date Type Department Care Team Description 10/16/2020 Telephone [place] None, Pcp Review Results [address] [place], [place] [address] [place], [place] [phone] Social History Tobacco Use Types Packs/Day [...] appointment. Keep a copy at the front elevator operator for his appointment. Send to scanning the original. documented in this encounter Plan of Treatment Not on filedocumented as of this encounter Visit Diagnoses Not on filedocumented in this encounter Care Teams Inter Com Installer Relationship Specialty Start Date End Date None, Pcp PCP - General Wireless Technician 03/29/20 12/31/[address] [place] [address] documented as of this encounter
--- OUTSIDE RECORDS SUMMARY | 2022-03-12 08:24 | XMS_ITS | Encounter Summary ---
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 Telephone Encounter - Arit Amaya - 01/28/2022 2:22 PM CDT Left [...] and lab test. 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
--- OUTSIDE RECORDS SUMMARY | 2022-03-12 08:24 | XMS_ITS | Encounter Summary ---
:1940 Author Organization [facility] Address [address] [place] [address] Care Team Providers Name Role Phone None, Pcp Primary Care Provider Unavailable Encounter Details Date Type Department Care Team Description 09/08/2020 Orders Only [place] Elisha Woodward MD [address] [facility] [address] [place], [place] [address] [place], [place] [phone] (Wo rk) Social History Tobacco Use Types [...] on filedocumented in this encounter Care Teams Clinical Trial Associate Relationship Specialty Start Date End Date None, Pcp PCP - General Manager Pharmaceutical 03/29/20 12/31/20 [address] [place] [address] documented as of this encounter
--- OUTSIDE RECORDS SUMMARY | 2022-03-12 08:24 | XMS_ITS | Encounter Summary ---
:1940 Author Organization [facility] Address [address] [place] [address] Care Team Providers Name Role Phone Elisha Woodward MD Primary Care Provider Reason for Visit Reason Onset Date Comments medication question 01/15/2021 Encounter Details Date Type Department Care Team Description 01/15/2021 [address] [place] [facility] [place], medication question [address] [facility] [place] 20 [place], [place] [address] [phone] [place] [address] (Wo rk) Social History Tobacco Use Types [...] a medication question. Please call Pt at [phone] [facility]. documented in this encounter Plan of Treatment Not on filedocumented as of this encounter Visit Diagnoses Not on filedocumented in this encounter Care Teams Dead Mail Checker Relationship Specialty Start Date End Date Elisha Woodward MD PCP - General 01/01/[address] [place] [address] documented as of this encounter
--- OUTSIDE RECORDS SUMMARY | 2022-03-12 08:24 | XMS_ITS | Encounter Summary ---
:1940 Author Organization [facility] Address [address] [place] [address] Care Team Providers Name Role Phone None, [...] polyp of colon, unspecified part of colon; [address] [address] Hyperlipidemia, unspecified hyperlipidem ia type; [phone] Margarito Love, Atherosclerosi s of [place] coronary artery without angina pectoris, unspecified whether [place] transplanted heart; [place] [address] 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, unspecified vessel or lesion type, unspecified whether [place] or transplanted heart; [phone] Gastroesophagea l reflux disease without esophagitis (Work) [...] 1 (one) time each day Atherosclerosis of [place] coronary artery without angina pectoris, unspecified whether [place] or transplanted heart - metoprolol succinate XL (TOPROL-XL) 25 MG 24 hr tablet; Take ONE pill ONCE a day for blood pressure. Do not crush or chew. 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
--- OUTSIDE RECORDS SUMMARY | 2022-03-12 08:24 | XMS_ITS | Encounter Summary ---
:1940 Author Organization [facility] Address [address] [place] [address] Care Team Providers Name Role Phone None, Pcp Primary Care Provider Unavailable Encounter Details Date Type Department Care Team Description 10/15/2020 Orders Only [place] Elisha Woodward MD [address] [facility] [address] [place], [place] [address] [place], [place] [phone] (Wo rk) Social History Tobacco Use Types [...] on filedocumented in this encounter Care Teams Mechanical Systems Control Engineer Relationship Specialty Start Date End Date None, Pcp PCP - General Power Plant Superintendent 03/29/20 12/31/20 [address] [place] [address] documented as of this encounter
--- OUTSIDE RECORDS SUMMARY | 2022-03-12 08:24 | XMS_ITS | Clinical Summary ---
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 Added automatically from request for mayte hardy [id number] Occult blood in stools 09/11/2020 Overview: Formatting of this note might be differe nt from the original. Added automatically from request for mayte hardy [id number] Primary osteoarthritis, left shoulder 12/20/2019 Overview: Formatting of this note might be differe nt from the original. Added automatically from request for mayte hardy [id number] Bilateral hearing loss 12/14/2019 Gastroesophageal reflux disease [...] irrigation completed by nursing staff. Follow-up with sleeve separator on a regular basis. 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 Cervicalgia 10/28/2014 Hyperlipoproteinemia 09/02/2014 Disturbance of skin sensation 12/07/2013 Vitamin D deficiency 03/10/2009 Polymyalgia rheumatica 03/25/2007 History of cerebrovascular accident 06/10/2006 Encounters Date Type Specialty Care Team Description 01/25/2022 Refill Family Medicine Elisha Woodward, Screen ing for deficiency anemia (Primary Dx); Atherosclerosis of [place] coronary artery without angina pectoris, unspecified whether hughes or transplanted heart; Primary hyperte nsion; Diabetes [...] 07/21/2020, 06/30/2020 Fall Risk Performed 10/25/2021 10/25/2020 [facility] [place]ness 10/25/2021 10/25/2020, 01/09/2018 Pneumococcal Vaccine: 65+ Completed 01/09/2018, Years 06/10/2006 HPV Vaccines Aged Out No longer eligib le based on patient's age to [facility] Insurance Payer Benefit Plan / Subscriber ID Effective Dates Phone Addre ss Type Group MEDICARE MEDICARE [id number] 2006-Presen [address] [place] [address] BCBS OF BCBS [place] [id number] 2016-Presen [address] [place] [address] [place], [place] MEDICARE NON [id number] (Home) YARIEL GARCIA [id number] Care Teams Supervisor Securities Vault Relationship Specialty Start Date End Date Elisha Woodward MD PCP - General 01/01/[address] [place] [address]
--- OUTSIDE RECORDS SUMMARY | 2022-03-12 08:24 | XMS_ITS | Encounter Summary ---
:[address] [facility] Address [address] [place] [address] Care Team Providers Name Role Phone None, Pcp Primary Care Provider Unavailable Reason for Visit Reason Onset Date Comments med questions 09/13/2020 Encounter Details Date Type Department Care Team Description 09/13/2020 Telephone [place] None, Pcp med questions [address] [place], [place] [address] [place], [place] [phone] [address] Social History Tobacco Use Types Packs/Day [...] some medication questions. Please call Pt at [phone] advise. documented in this encounter Plan of Treatment Not on filedocumented as of this encounter Visit Diagnoses Not on filedocumented in this encounter Care Teams Evp Global Product Leadership Relationship Specialty Start Date End Date None, Pcp PCP - General Supervisor Type Disk Quality Control 03/29/20 12/31/20 [address] [place] [address] documented as of this encounter
--- OUTSIDE RECORDS SUMMARY | 2022-03-12 08:24 | XMS_ITS | Encounter Summary ---
:1940 Author Organization [facility] Address [address] [place] [address] Care Team Providers Name Role Phone Elisha Woodward MD Primary Care Provider Reason for Visit Reason Comments Med Refill Encounter Details Date Type Department Care Team Description 12/13/2021 Refill [place] Elisha Woodward Hyperlipidemia, unspecified [address] [facility] [place] hyperlipidemia type [place], [place] [address] [phone] [place] [address] Social History Tobacco Use Types Packs/Day Years [...] type documented in this encounter Care Teams Thread Laster Relationship Specialty Start Date End Date Elisha Woodward MD PCP - General 01/01/[address] [place] [address] documented as of this encounter
--- OUTSIDE RECORDS SUMMARY | 2022-03-12 08:24 | XMS_ITS | Encounter Summary ---
:1940 Author Organization [facility] Address [address] [place] [address] Care Team Providers Name Role Phone None, Pcp Primary Care Provider Unavailable Reason for Visit Reason Comments Medicare Annual Wellness Visit Subsequent Encounter Details Date Type Department Care Team Description 10/25/2020 Clinical Support Margarito [place] Medicare annual wellness [address] visit, subsequent Margarito [place] [address] (Primary Dx) [phone] Social History Tobacco Use Types Packs/Day Years [...] Team: Pcp None as PCP - General (Surgical Instrument Repair Specialist) Eye Care: [facility] Dental Care: [facility] Pharmacy: [facility] [address] [place] [address] Other: Visit Vitals BP 134/88 (BP Location: [...] pathological fracture ??? Atherosclerotic heart disease of [place] coronary artery without angina pectoris ??? Disturbance [...] Gatherings with Friends and Family: ??? Attends Hinduism Services: ??? Active Member of Clubs or [...] transfusion before 1991. ?? Those born between 9753-5792. Glaucoma: Medicare Part B (Medical Insurance) covers [...] Primary documented in this encounter Care Teams Physicist Acoustics Relationship Specialty Start Date End Date None, Pcp PCP - General Surgical Instrument Repair Specialist 03/29/20 12/31/[address] [place] [address] documented as of this encounter
--- OUTSIDE RECORDS SUMMARY | 2022-03-12 08:24 | XMS_ITS | Encounter Summary ---
:1940 Author Organization [facility] Address [address] [place] [address] Care Team Providers Name Role Phone Elisha Woodward MD Primary Care Provider Reason for Visit Reason Comments Med Refill Encounter Details Date Type Department Care Team Description 11/17/2021 Refill [place] Elisha Woodward Hyperlipidemia, unspecified hyperlipidemia type; [address] [place] Gastroesophageal reflux disease without esophagitis [place], [place] [address] [place] [address] Social History Tobacco Use Types Packs/Day Years [...] reflux documented in this encounter Care Teams Shipping Clerk Relationship Specialty Start Date End Date Elisha Woodward MD PCP - General 01/01/[address] [place] [address] documented as of this encounter
--- OUTSIDE RECORDS SUMMARY | 2022-03-12 08:24 | XMS_ITS | Encounter Summary ---
:1940 Author Organization [facility] Address [address] [place] [address] Care Team Providers Name Role Phone Elisha Woodward MD Primary Care Provider Encounter Details Date Type Department Care Team Description 02/16/2021 Immunization Family Medicine [address] [place] [address] Social History Tobacco Use Types Packs/Day Years [...] on filedocumented in this encounter Care Teams Cementing Bulk Material Operator Relationship Specialty Start Date End Date Elisha Woodward MD PCP - General 01/01/[address] [place] [address] documented as of this encounter
--- OUTSIDE RECORDS SUMMARY | 2022-03-12 08:24 | XMS_ITS | Encounter Summary ---
:1940 Author Organization [facility] Address [address] [place] [address] Care Team Providers Name Role Phone Elisha Woodward MD Primary Care Provider Reason for Visit Reason Comments Med Refill Encounter Details Date Type Department Care Team Description 11/01/2021 Refill [place] Elisha Woodward Gastroesophageal reflux [address] [place] disease without esophagitis [place], [place] [address]262 [facility] 20 [place] [address] Social History Tobacco Use Types Packs/Day Years [...] reflux documented in this encounter Care Teams Weatherization Crew Leader Relationship Specialty Start Date End Date Elisha Woodward MD PCP - General 01/01/[address] [place] [address] documented as of this encounter
--- OUTSIDE RECORDS SUMMARY | 2022-03-12 08:24 | XMS_ITS | Encounter Summary ---
:1940 Author Organization [facility] Address [address] [place] [address] Care Team Providers Name Role Phone None, Pcp Primary Care Provider Unavailable Encounter Details Date Type Department Care Team Description 09/08/2020 Orders Only Elisha Young Colon cancer screening [address] [place] (Primary Dx) [place], [place] [address]47 [facility] 20 [place] [address] Social History Tobacco Use Types Packs/Day Years [...] colon documented in this encounter Care Teams Small Engine Mechanic Relationship Specialty Start Date End Date None, Pcp PCP - General Sample Preparation Supervisor 03/29/20 12/31/20 [address] [place] [address] documented as of this encounter
--- OUTSIDE RECORDS SUMMARY | 2022-03-12 08:24 | XMS_ITS | Encounter Summary ---
:1940 Author Organization [facility] Address [address] [place] [address] Care Team Providers Name Role Phone None, [...] Branch Off w/Diff (10/25/2020 9:17 AM CDT) [facility] gist Method Time Signature WBC 7.2 [...] FALLS Granulocytes/Urszula 4.8 1.7 - 7.0 10/25/2020 [facility] [place] trophils K/uL 9:32 AM CDT FALLS Absolute Specimen Anatomical Collection Method Collection Time Receive d Time (Source) Location / / Volume Laterality 10/25/2020 9:17 AM 9:31 CDT AM CDT D. 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
--- OUTSIDE RECORDS SUMMARY | 2022-03-12 08:24 | XMS_ITS | Encounter Summary ---
:1940 Author Organization [facility] Address [address] [place] [address] Care Team Providers Name Role Phone Elisha Woodward MD Primary Care Provider Reason for Visit Reason Onset Date Comments med list 03/26/2021 Encounter Details Date Type Department Care Team Description 03/26/2021 Telephone [place] Elisha Woodward MD med list [address] [facility] [address] [place], [place] [address] [place], [place] [phone] (Wo rk) Social History Tobacco Use Types [...] - 03/27/2021 11:42 AM CST Picked up. COVERER Telephone Encounter - Guillermina Bradford LPN - 03/26/2021 12:45 PM CST At front end software engineer COVERER Telephone Encounter - Arti Amaya - 03/26/2021 12:37 PM CST Pt called asking for a copy of his med list. Pt will pick it up in clinic tomorrow, Friday03/27/21. COVERER documented in this encounter Plan of Treatment Not on filedocumented as of this encounter Visit Diagnoses Not on filedocumented in this encounter Care Teams Tester Waste Disposal Leakage Relationship Specialty Start Date End Date Elisha Woodward MD PCP - General 01/01/[address] [place] [address] documented as of this encounter
--- OUTSIDE RECORDS SUMMARY | 2022-03-12 08:25 | XMS_ITS | Encounter Summary ---
:1940 Author Organization [facility] Address [address] [place] [address] Care Team Providers Name Role Phone Laila Loco BEAD MACHINE OPERATOR, DIRECTOR OF GRADUATE MEDICAL EDUCATION Primary Care Provider [phone] Reason for Visit Reason Onset Date Comments refill medication 09/02/2019 Encounter Details Date Type Department Care Team Description 09/02/2019 [place]phone [place], refill medication [address] BEAD MACHINE OPERATOR, [place], [place] [address] [address] [facility] [address] [phone] [place], [place] [address] Social History Tobacco Use [...] CDT Pt is at pharmacy wanting to picker tender RX Telephone Encounter - Ellen Delgado RN - 09/02/2019 10:27 AM CDT Pt is asking for Pantoprazole to be renewed, last visit 09/2018 shows he was not taking. Pt would like 90 day supply. Pt is on his way to pharmacy now. Pt had to change pharmacy to [facility] dueto his insurance. please advise on renewal Telephone Encounter - Kanwal Zarco - 09/02/2019 9:43 AM CDT Patient is on his way to [facility] in [facility]. (he can not use the [place] pharmacy, his insurance changed) He needs his acid reflux medication. He needs this prescription send as soon aspossible. He is asking to talk to a nurse too! [phone]. documented in this encounter Plan of Treatment Not on filedocumented as of this encounter Visit Diagnoses Diagnosis Gastroesophageal reflux disease without esophagitis Esophageal reflux documented in this encounter Care Teams Marketing Support Manager Relationship Specialty Start Date End Date Laila Loco APRN, DIRECTOR OF GRADUATE MEDICAL EDUCATION PCP - General 12/09/17 01/10/20 [address] [facility] [place] [address] documented as of this encounter
--- OUTSIDE RECORDS SUMMARY | 2022-03-12 08:25 | XMS_ITS | Encounter Summary ---
:1940 Author Organization [facility] Address [address] [place] [address] Care Team Providers Name Role Phone Laila Loco APRN, AURIST Primary Care Provider Encounter Details Date Type Department Care Team Description 11/16/2019 Lab [place] Diabetes mellitus screening; [address] Medication monitoring encoun [place], [place] [address] Social History Tobacco Use [...] AM CDT) athologist Signature Fasting? Yes 11/16/2019 [facility] 8:21 AM T [facility]ENTER [facility] Specimen Anatomical Collection Method Collection Time Receive d Time (Source) Location / / Volume Laterality 11/16/2019 8:19 AM 0 8:21 CDT AM CDT D. Dontrell Woodward MD LAB BLOOD ORDERABLES Performing Organization Address City/State/ZIP Code Phon e Number [facility] [address] [place] [phone] Liver panel (11/16/2019 8:19 AM CDT) athologist Signature Total Protein 7.0 6.3 - 8.2 11/16/2019 [place] g/dL 2:07 PM [facility] Albumin, Serum 4.1 3.5 - 5.0 11/16/2019 [place] g/dL 2:07 PM [facility] Total Bilirubin 1.0 0.1 - 1.0 11/16/2019 [place] mg/dL 2:07 PM [facility] Bilirubin, <0.1 0.0 - 0.3 11/16/2019 [place] Direct mg/dL 2:07 PM [facility] AST 25 8 - 48 U/L 11/16/2019 [place] 2:07 PM [facility] Alkaline 116 38 - 128 11/16/2019 [place] Phosphatase U/L 2:07 PM [facility] ALT (SGPT) 20 0 - 49 U/L 11/16/2019 [place] 2:07 PM [facility] Specimen Anatomical Collection Method Collection Time Receive d Time (Source) Location / / Volume Laterality Blood 11/16/2019 8:19 AM 0 1:02 CDT PM CDT Elisha Woodward MD LAB BLOOD ORDERABLES Performing Organization Address City/State/ZIP Code Phon e Number [facility] [address] [place] [phone] (ABNORMAL) Glucose, fasting (11/16/2019 8:19 AM CDT) athologist Signature Glucose 107 (H) 70 - 100 11/16/2019 [facility] mg/dL 2:07 PM CDT CENTER LABORATORY Specimen Anatomical Collection Method Collection Time Receive d Time (Source) Location / / Volume Laterality Blood (Blood, 11/16/2019 8:19 AM 11/16/19 20 1:02 Venous) CDT PM CDT Elisha Woodward MD LAB BLOOD ORDERABLES Performing Organization Address City/[facility]/ZIP Code Phon e Number [facility] [address] [place] [phone] documented in this encounter Visit Diagnoses Diagnosis Diabetes mellitus screening Screening for diabetes mellitus Medication monitoring encounter Encounter for therapeutic drug monitorin g documented in this encounter Care Teams Insole Rasper Relationship Specialty Start Date End Date Laila Loco APRN, AURIST PCP - General 12/09/17 01/10/20 100 [facility] [place] [address] documented as of this encounter
--- OUTSIDE RECORDS SUMMARY | 2022-03-12 08:25 | XMS_ITS | Encounter Summary ---
:1940 Author Organization [facility] Address [address] [place] [address] Care Team Providers Name Role Phone Elisha Woodward MD Primary Care Provider Encounter Details Date Type Department Care Team Description 07/05/2019 Telephone Lug[place]Laila Moctezuma, [address] HOME VISIT FIELD CARE MANAGER, [place], [place] [address] [address] [facility] [phone] [place], [place] [address] Social History Tobacco Use [...] on filedocumented in this encounter Care Teams Stock Controller Relationship Specialty Start Date End Date Elisha Woodward MD PCP - General 01/01/[address] [place] [address] documented as of this encounter
--- OUTSIDE RECORDS SUMMARY | 2022-03-12 08:25 | XMS_ITS | Encounter Summary ---
:1940 Author Organization [facility] Address [address] [place] [address] Care Team Providers Name Role Phone Unavailable Primary Care Provider Unavailable Reason for Visit Reason Comments Med Refill Encounter Details Date Type Department Care Team Description 03/07/2020 Refill Wendy Pillai Gastroesophageal reflux [address] [facility] EMD Lara disease without esophagitis [place] [address] Social History Tobacco Use Types Packs/Day Years [...] - 03/07/2020 1:59 PM CST Please advise OBIOLOGIST Telephone Encounter - Ellen Delgado RN - 03/07/2020 1:38 PM CST Margarito hanna patient--please advise on appointment/refill OBIOLOGIST Telephone Encounter - Isabel Cardoso MA - [...] to assist patient with scheduling. Thank you! OBIOLOGIST documented in this encounter Plan of Treatment Not on filedocumented as of this encounter Visit Diagnoses Diagnosis Gastroesophageal reflux disease without esophagitis Esophageal reflux documented in this encounter
--- OUTSIDE RECORDS SUMMARY | 2022-03-12 08:25 | XMS_ITS | Encounter Summary ---
:1940 Author Organization [facility] Address [address] [place] [address] Care Team Providers Name Role Phone Laila Loco APRN, IRA Primary Care Provider [phone] Reason for Visit Reason Onset Date Comments fax 10/05/2019 Encounter Details Date Type Department Care Team Description 10/05/2019 Telephone [place] Elisha Woodward MD fax [address] [facility] [address] [place], [place] [address] [place], [place] [phone] (Wo rk) Social History Tobacco Use Types [...] them as prescribed. He uses [facility] in [place] for a pharmacy. He stated he isn't [...] Morrison RN - 10/05/2019 2:31 PM CDT [employer] faxed that the patient's Metoprolol 25mg has not been filled regularly. Last Rx was written 08/2018. Please advise. documented in this encounter Plan of Treatment Not on filedocumented as of this encounter Visit Diagnoses Not on filedocumented in this encounter Care Teams Laundry Laborer Relationship Specialty Start Date End Date Laila Loco APRN, AUTOMATIC PAD MAKING MACHINE OPERATOR PCP - General 12/09/17 01/10/20 [address] [place], [place] [address] documented as of this encounter
--- OUTSIDE RECORDS SUMMARY | 2022-03-12 08:25 | XMS_ITS | Encounter Summary ---
:1940 Author Organization [facility] Address [address] [place] [address] Care Team Providers Name Role Phone None, Pcp Primary Care Provider Unavailable Reason for Visit Reason Onset Date Comments Schedule ENT 04/05/2020 Encounter Details Date Type Department Care Team Description 04/05/2020 Telephone [facility] Ophthalmology [place], Brendon Arceo MD Schedule ENT [address] [place] [address] Social History Tobacco Use Types Packs/Day Years [...] an appointment with ENT preferably Dr. Haney ROL AREA OPERATOR documented in this encounter Plan of Treatment Not on filedocumented as of this encounter Visit Diagnoses Not on filedocumented in this encounter Care Teams Trimmer Meat Relationship Specialty Start Date End Date None, Pcp PCP - General Sash Assembler 03/29/20 12/31/20 [address] [place] [address] documented as of this encounter
--- OUTSIDE RECORDS SUMMARY | 2022-03-12 08:25 | XMS_ITS | Encounter Summary ---
:1940 Author Organization [facility] Address [address] [place] [address] Care Team Providers Name Role Phone Laila Loco APRN, IRA Primary Care Provider [phone] Reason for Visit Reason Onset Date Comments Shoulder pain 11/10/2019 Encounter Details Date Type Department Care Team Description 11/10/2019 Telephone [place] Elisha Woodward MD Shoulder pain [address] [place], [place] [address] [place], [place] [phone] (Wo rk) Social History Tobacco Use Types [...] medications. Please call his cell phone at [phone]. documented in this encounter Plan of Treatment Not on filedocumented as of this encounter Visit Diagnoses Not on filedocumented in this encounter Care Teams Utilization Management Nurse Relationship Specialty Start Date End Date Laila Loco, LEDGER POSTER, TIMBER DEADENER PCP - General 12/09/17 01/10/20 [address] [facility] [place] [address] documented as of this encounter
--- OUTSIDE RECORDS SUMMARY | 2022-03-12 08:25 | XMS_ITS | Encounter Summary ---
:1940 Author Organization [facility] Address [address] [place] [address] Care Team Providers Name Role Phone Laila oLco APRN, AUTOMOBILE MECHANIC HELPER Primary Care Provider [phone] Reason for Visit Reason Onset Date Comments Med Refill 11/26/2019 Encounter Details Date Type Department Care Team Description 11/26/2019 Refill Wendy Pillai Atherosclerosis of [place] co ronary artery without angina pectoris, unspecified whether [place] or transplanted heart; [address] Rehan Varghese MD Gastroesophageal reflux dise ase without esophagitis; [place] [address] Hyperlipidemia, unspecified hyperlipidemia type [phone] Social History Tobacco Use Types Packs/Day Years [...] AM CDT Please advise-pt seen in 2019 [facility] Telephone Encounter - Khushbu Anthony - 11/26/2019 9:15 AM CDT Pt calls stating he was told by [facility] to contact Dr. Rosenthal for his med refills, since Rajan Claudy is no longer with [facility]. Pt is going to be out soon and is wondering if Dr. Rosenthal could fill this until he can get in to see her. Please advise. documented in this encounter Plan of Treatment Not on filedocumented as of this encounter Visit Diagnoses Diagnosis Atherosclerosis of [place] coronary arter y without angina pectoris, unspecified whether [place] or transplanted heart Gastroesophageal reflux disease without esophagitis Esophageal reflux Hyperlipidemia, unspecified hyperlipidem ia type documented in this encounter Care Teams Manufacturing Teacher Relationship Specialty Start Date End Date Laila Loco, EXTERMINATOR, AUTOMOBILE MECHANIC HELPER PCP - General 12/09/17 01/10/[address] [place] [address] documented as of this encounter
--- OUTSIDE RECORDS SUMMARY | 2022-03-12 08:25 | XMS_ITS | Encounter Summary ---
:1940 Author Organization [facility] Address [address] [place] [address] Care Team Providers Name Role Phone None, Pcp Primary Care Provider Unavailable Reason for Referral Consultation (Routine) - Closed Specialty Diagnoses / Procedures Referred By Contact Refer red To Contact Diagnoses Anemia, unspecified type Guaiac positive stools Elisha Woodward MD [facility] [address] [address] Referral ID Status Reason Start Date Expiration Date Visits Requ ested Visits Authorized [id number] Closed 09/08/2020 09/08/2021 1 1 Reason for Visit Reason Onset Date Comments Referral 09/08/2020 Encounter Details Date Type Department Care Team Description 09/08/2020 Telephone [place]Elisha Young MD Referral [address] [facility] [address] [place], [place] [address] [place], [place] [phone] (Wo rk) Social History Tobacco Use Types [...] 10:36 AM CDT Please fax referral to [facility] Telephone Encounter - Elisha Woodward MD - 09/08/2020 10:17 AM CDT I have placed a referral for Obey to get a colonoscopy at [facility]. I have also sent to Obey's pharmacy [facility] in [facility] prep. After you fax the referral to [facility] in [facility] I would have you call one of [...] the next couple of days. He should picker box operator he has proper from his pharmacy. And also let him know that this may be both scoping from above looking at his stomach as well as a colonoscopy. Telephone Encounter - Nisha Morrison RN - 09/08/2020 9:47 AM CDT Patient would like to do this at [facility]. Please place order. Prep instructions [...] done. We could do it down at [facility] we could do it at [facility] the [facility] site because of his underlying previous [...] up or he can stop by the [place] office and picker box operator the prep sheet. I will also [...] in his stool. Please call him at [phone]. documented in this encounter Plan of Treatment Scheduled Referrals Name Type Priority Associated Diagnoses [facility] External Outpatient Referral Routine Anemia, unspec ified Ordered: Referral type 09/08/2020 Guaiac positive stools documented as of this encounter Visit Diagnoses Diagnosis Anemia, unspecified type - Primary Guaiac positive stools Nonspecific abnormal finding in stool co ntents documented in this encounter Care Teams Solderer Assembler Relationship Specialty Start Date End Date None, Pcp PCP - General Brazer Assembler 03/29/20 12/31/20 [address] [place] [address] documented as of this encounter
--- OUTSIDE RECORDS SUMMARY | 2022-03-12 08:25 | XMS_ITS | Encounter Summary ---
:1940 Author Organization [facility] Address [address] [place] [address] Care Team Providers Name Role Phone Laila Loco APRN, IRA Primary Care Provider [phone] Encounter Details Date Type Department Care Team [...] on filedocumented in this encounter Care Teams Health Information Managers Relationship Specialty Start Date End Date Laila Loco, SUBSTANCE ABUSE TECHNICIAN, PROFESSOR OF LAW PCP - General 12/09/17 01/10/20 100 [facility] [place] [address] documented as of this encounter
--- OUTSIDE RECORDS SUMMARY | 2022-03-12 08:25 | XMS_ITS | Encounter Summary ---
:[address] [facility] Address [address] [place] [address] Care Team Providers Name Role Phone Laila Loco ENGINEERING CONSULTANT, DUMPLING MACHINE OPERATOR Primary Care Provider [phone] Encounter Details Date Type Department Care Team Description 07/06/2019 Orders Only [place]aila Moctezuma Constipation, [address] M, ENGINEERING CONSULTANT, DUMPLING MACHINE OPERATOR unspecified Margarito Love, [place] [address] constipation type [address] [place] [address] (Primary Dx) [phone] Social History Tobacco Use Types Packs/Day Years [...] Primary documented in this encounter Care Teams Dealer Relationship Manager Relationship Specialty Start Date End Date Laila Loco, ENGINEERING CONSULTANT, DUMPLING MACHINE OPERATOR PCP - General 12/09/17 01/10/20 [address] [place] [address] documented as of this encounter
--- OUTSIDE RECORDS SUMMARY | 2022-03-12 08:25 | XMS_ITS | Encounter Summary ---
:1940 Author Organization [facility] Address [address] [place] [address] Care Team Providers Name Role Phone None, Pcp Primary Care Provider Unavailable Reason for Referral Consultation (Routine) - Closed Specialty Diagnoses / Procedures Referred By Contact Refer red To Contact Otolaryngology Diagnoses Impacted cerumen of left ear Aydin Calix MD Ear Nose Throat [address] [place], [place] [phone] Referral ID Status Reason Start Date Expiration Date Visits V isits Requested Authorized [id number] Closed Specialty 04/04/2020 04/04/2021 1 1 Services Required Scheduling Instructions Please call the ENT Project Intern desk at [phone]. [phone] to schedule an appointment. ESS TEACHER Reason for Visit Reason Comments Ear Problem Follow up from last week, rhonda villaseñor Encounter Details Date Type Department Care Team Description 04/04/2020 Office Visit Aydin Gil, Impacted cerumen of [address] left ear (Primary Dx) [place], [place] [address] [place] [address] [place], [place] [phone] Social History Tobacco Use Types Packs/Day Years [...] Comments Blood Pressure 128/72 04/04/2020 9:55 AM FITNESS TEACHER Pulse 69 04/04/2020 9:55 AM FITNESS TEACHER Temperature 36.9 ??C (98.4 ??F) 04/04/2020 9:55 AM FITNESS TEACHER Respiratory Rate 16 04/04/2020 9:55 AM FITNESS TEACHER Oxygen Saturation 96% 04/04/2020 9:55 AM FITNESS TEACHER Inhaled Oxygen Concentration - - Weight 70 kg (154 lb 6.4 oz) 04/04/2020 9:55 AM FITNESS TEACHER Height - - Body Mass Index 24.99 03/29/2020 10:39 AM FITNESS TEACHER documented in this encounter Patient Instructions Patient [...] Follow these instructions at home: ?? Take dwqv-ysk-pakeski and prescription medicines only as told by [...] clean them according to instructions from the lockstitch hemmer and your health care provider. Contact a [...] 05/29/2005 Document Revised: 04/02/2018 Document Reviewed: 07/02/2017 [employer] Patient Education ?? 2020 [place]. ESS TEACHER documented in this encounter Progress Notes Aydin [...] improve. Note created using voice dictation software. ESS TEACHER documented in this encounter Plan of Treatment Scheduled Referrals Name Type Priority Associated Order Schedule Diagnoses Ambulatory referral Outpatient Referral Routine Impacted cerum en of Ordered: to ENT left ear 04/04/2020 documented as of this encounter Visit Diagnoses Diagnosis Impacted cerumen of left ear - Primary Impacted cerumen documented in this encounter Care Teams Senior Marketing Analyst Relationship Specialty Start Date End Date None, Pcp PCP - General Eating Disorder Specialist 03/29/20 12/31/[address] [place] [phone] documented as of this encounter
--- OUTSIDE RECORDS SUMMARY | 2022-03-12 08:25 | XMS_ITS | Encounter Summary ---
:1940 Author Organization [facility] Address [address] [place] [address] Care Team Providers Name Role Phone Laila Loco APRN, GAMEWELL OPERATOR Primary Care Provider [phone] Reason for Visit Reason Comments Follow-up Coughing still and not eatin g Encounter Details Date Type Department Care Team Description 07/06/2019 Office Visit [place] Laila Loco Decreased appetite [address] M, IRA WARD (Primary Dx) [place], [place] [address] [facility] [address] [place] [address] Social History Tobacco Use Types Packs/Day Years [...] Comments Blood Pressure 124/66 07/06/2019 8:34 AM DINING ROOM HOST/HOSTESS Pulse 68 07/06/2019 8:34 AM DINING ROOM HOST/HOSTESS Temperature 35.7 ??C (96.2 ??F) 07/06/2019 8:34 AM DINING ROOM HOST/HOSTESS Respiratory Rate 16 07/06/2019 8:34 AM DINING ROOM HOST/HOSTESS Oxygen Saturation 93% 07/06/2019 8:34 AM DINING ROOM HOST/HOSTESS Inhaled Oxygen Concentration - - Weight 64.9 kg (143 lb) 07/06/2019 8:34 AM DINING ROOM HOST/HOSTESS Height 167.6 cm (5' 5.98) 07/06/2019 8:34 AM DINING ROOM HOST/HOSTESS Body Mass Index 23.09 07/06/2019 8:34 AM DINING ROOM HOST/HOSTESS documented in this encounter Patient Instructions Patient InstructionsChsulema Loco APRN, CNP - 07/06/2019 8:40 AM DINING ROOM HOST/HOSTESS Hold Calcium supplement One serving of coffee per day NG ROOM HOST/HOSTESS documented in this encounter Progress Notes Laila [...] AM Decreased appeti te Results for this DINING ROOM HOST/HOSTESS procedure are i n the results section. documented in this encounter Results X-ray abdomen 2 views (07/06/2019 9:35 AM DINING ROOM HOST/HOSTESS) Anatomical Region Laterality Modality Body Radiographic Imaging Specimen (Source) Anatomical Collection Method Collection Time Re ceived Time Location / / Volume Laterality 07/06/2019 9:35 AM DINING ROOM HOST/HOSTESS Impressions 07/06/2019 9:41 AM DINING ROOM HOST/HOSTESS IMPRESSION: Bowel gas pattern is nonobstructive. If there is a clinical need for additional imaging, CT scan could be con sidered. Narrative 07/06/2019 9:41 AM DINING ROOM HOST/HOSTESS INDICATION: decreased appetite COMPARISON: None available FINDINGS: [...] XR PROCEDURES C-reactive protein (07/06/2019 9:16 AM DINING ROOM HOST/HOSTESS) athologist Signature CRP 2.0 0.0 - 4.9 07/06/2019 [facility] mg/L 1:32 PM D[facility] H[facility]HOST[facility] Specimen Anatomical Collection Method Collection Time Receive d Time (Source) Location / / Volume Laterality Blood (Blood, 07/06/2019 9:16 AM 07/06/19 20 Venous) DINING ROOM HOST/HOSTESS 12:32 PM DINING ROOM HOST/HOSTESS Laila Loco APRN, CNP LAB BLOOD ORDERABLES Performing Organization Address City/[facility]/ZIP Code Phon e Number [facility] [address] [place] [phone] (ABNORMAL) ESR-Sed rate (07/06/2019 9:16 AM DINING ROOM HOST/HOSTESS) athologist Signature Sed Rate 36 (H) 0 - 22 07/06/2019 [facility] mm/hr 1:40 PM [facility] Specimen Anatomical Collection Method Collection Time Receive d Time (Source) Location / / Volume Laterality Blood (Blood, 07/06/2019 9:16 AM 07/06/19 20 Venous) DINING ROOM HOST/HOSTESS 12:32 PM DINING ROOM HOST/HOSTESS Laila Loco APRN, CNP LAB BLOOD ORDERABLES Performing Organization Address City/[facility]/ZIP Code Phon e Number [facility] [address] [place] [phone] Lipase (07/06/2019 9:16 AM DINING ROOM HOST/HOSTESS) athologist Signature Lipase 85 23 - 300 07/06/2019 [facility]/L 1:32 PM [facility] Specimen Anatomical Collection Method Collection Time Receive d Time (Source) Location / / Volume Laterality Blood (Blood, 07/06/2019 9:16 AM 07/06/19 20 Venous) DINING ROOM HOST/HOSTESS 12:32 PM DINING ROOM HOST/HOSTESS Laila Loco APRN, CNP LAB BLOOD ORDERABLES Performing Organization Address [facility]/ZIP [facility] Phon e Number [facility] [address] [place] [phone] (ABNORMAL) Amylase (07/06/2019 9:16 AM DINING ROOM HOST/HOSTESS) P athologist Signature Amylase 173 (H) 30 - 110 07/06/2019 [facility] 1:32 PM [facility] Specimen Anatomical Collection Method Collection Time Receive d Time (Source) Location / / Volume Laterality Blood (Blood, 07/06/2019 9:16 AM 07/06/19 20 Venous) [facility]IN[facility] RO[facility] HOST/HOSTESS 12:32 PM [facility]IN[facility] ROOM HOST/HOSTESS Laila Loco APRN, CNP LAB BLOOD ORDERABLES Performing Organization Address City/[facility] Code Phon e Number [facility] [address] [place] [phone] (ABNORMAL) Comprehensive metabolic panel (07/06/2019 9:16 AM DINING ROOM HOST/HOSTESS) Patholo gist Method Time Signature Total Protein 8.6 (H) 6.3 - 8.2 07/06/2019 [facility] g/dL 1:32 PM [facility] Albumin, Serum 4.5 3.5 - 5.0 07/06/2019 [facility] g/dL 1:32 PM [facility] Total Bilirubin 1.3 (H) 0.1 - 1.0 07/06/2019 [facility] mg/dL 1:32 PM [facility] AST 26 8 - 48 U/L 07/06/2019 [facility] 1:32 PM [facility] Alkaline 134 (H) 38 - 128 07/06/2019 [facility] Phosphatase U/L 1:32 PM [facility] ALT (SGPT) 21 0 - 49 U/L 07/06/2019 [facility] 1:32 PM [facility] Sodium 140 135 - 145 07/06/2019 [facility] mEq/L 1:32 PM [facility] Potassium 4.2 3.5 - 5.1 07/06/2019 [facility] mEq/L 1:32 PM [facility] Chloride 100 98 - 107 07/06/2019 [facility] mEq/L 1:32 PM [facility] CO2 28 22 - 31 07/06/2019 [facility] mmol/L 1:32 PM [facility] BUN 13 5 - 25 07/06/2019 [facility] mg/dL 1:32 PM [facility] Creatinine 1.2 0.6 - 1.4 07/06/2019 [facility] mg/dL 1:32 PM [facility] Glucose 117 (H) 70 - 100 07/06/2019 [facility] mg/dL 1:32 PM [facility] Calcium, Total,S 9.7 8.4 - 10.2 07/06/2019 [facility] mg/dL 1:32 PM [facility] Fasting? Yes 07/06/2019 [facility] 9:21 AM [facility] Specimen Anatomical Collection Method Collection Time Receive d Time (Source) Location / / Volume Laterality Blood 07/06/2019 9:16 AM 0 [facility] RO[facility] HOST/HOSTESS 12:32 PM [facility] HOST/HOSTESS Laila Loco APRN, GAMEWELL OPERATOR LAB BLOOD ORDERABLES Performing Organization Address City/State/ZIP Code Phon e Number [facility] [address] [place] [phone] CBC Branch Off w/Diff (07/06/2019 9:16 AM DINING ROOM HOST/HOSTESS) P athologist Signature WBC 7.1 3.5 - 10.5 07/06/2019 [facility] K/uL 9:33 AM DIN[facility] ROOM HOST/HOSTESS [place] RBC 5.12 4.30 - 07/06/2019 [facility] 5.70 M/uL 9:33 AM [facility] [place] Hemoglobin 15.5 13.5 - 07/06/2019 [facility] 17.5 g/dL 9:33 AM [facility] [place] Hematocrit 46.5 38.0 - 07/06/2019 [facility] 50.0 % 9:33 AM [facility] [place] Platelets 242 150 - 450 07/06/2019 [facility] K/uL 9:33 AM D[facility] ROOM [facility]OST[facility]HOSTESS [place] MCV 90.8 81.2 - 07/06/2019 [facility] 95.1 fL 9:33 AM [facility] ROOM HOST[facility]HOSTESS [place] MCH 30.3 26.0 - 07/06/2019 [facility] 32.0 pg 9:33 AM DIN[facility] ROOM HOST[facility]HOSTESS [place] MCHC 33.3 32.0 - 07/06/2019 [facility] 36.0 g/dL 9:33 AM [facility] RO[facility] [place] RDW 14.5 11.8 - 07/06/2019 [facility] 15.6 % 9:33 AM [facility] [place] Lymphocytes % 19.8 18.0 - 07/06/2019 [facility] 45.0 % 9:33 AM [facility]OST[facility]ESS [place] Mid-size Cells 9.1 3.3 - 10.1 07/06/2019 [facility] % 9:33 AM [facility]OST/HOSTESS [place] Granulocytes/Urszula 71.1 45.8 - 07/06/2019 [facility] trophils 73.7 % 9:33 AM [facility] [place] Lymphocytes 1.4 0.9 - 2.9 07/06/2019 [facility] Absolute K/uL 9:33 AM D[facility] ROOM HOST/HOSTESS [place] MIDS Absolute 0.6 0.2 - 0.8 07/06/2019 [facility] K/uL 9:33 AM [facility] RO[facility] HOST[facility]HOSTESS [place] Granulocytes/Urszula 5.1 2.1 - 8.7 07/06/2019 [facility] trophils K/uL 9:33 AM DINING ROOM HOST/HOSTESS [place] Absolute Specimen Anatomical Collection Method Collection Time Receive d Time (Source) Location / / Volume Laterality Blood 07/06/2019 9:16 AM 0 9:21 DINING ROOM HOST/HOSTESS AM DINING ROOM HOST/HOSTESS Laila Loco APRN, GAMEWELL OPERATOR LAB BLOOD ORDERABLES Performing Organization Address City/State/ZIP Code Phon e Number [facility] [address] [place] [phone] documented in this encounter Visit Diagnoses Diagnosis Decreased appetite - Primary Anorexia documented in this encounter Care Teams Production Department Supervisor Relationship Specialty Start Date End Date Laila Loco APRN, GAMEWELL OPERATOR PCP - General 12/09/17 01/10/[address] [place] [address] [place] [address] documented as of this encounter
--- OUTSIDE RECORDS SUMMARY | 2022-03-12 08:25 | XMS_ITS | Encounter Summary ---
:1940 Author Organization [facility] Address [address] [place] [address] Care Team Providers Name Role Phone None, Pcp Primary Care Provider Unavailable Reason for Visit Reason Onset Date Comments med question 03/31/2020 Encounter Details Date Type Department Care Team Description 03/31/2020 Telephone [place] Elisha Woodward MD med question [address] [place], [place] [address] [place], [place] [phone] (Wo rk) Social History Tobacco Use Types [...] call ahead to schedule with the nurse. ER DIRECTOR Telephone Encounter - Janki Ortiz - 03/31/2020 9:47 AM CST Pt has question about how to take his ear drops? ER DIRECTOR documented in this encounter Plan of Treatment Not on filedocumented as of this encounter Visit Diagnoses Not on filedocumented in this encounter Care Teams Director Financial Planning Relationship Specialty Start Date End Date None, Pcp PCP - General Box Sealing Machine Operator 03/29/20 12/31/20 [address] [place] [address] documented as of this encounter
--- OUTSIDE RECORDS SUMMARY | 2022-03-12 08:25 | XMS_ITS | Encounter Summary ---
:1940 Author Organization [facility] Address [address] [place] [address] Care Team Providers Name Role Phone None, Pcp Primary Care Provider Unavailable Encounter Details Date Type Department Care Team Description 07/21/2020 Immunization Family Medicine [address] [place] [address] Social History Tobacco Use Types Packs/Day Years [...] on filedocumented in this encounter Care Teams Launderette Attendant Relationship Specialty Start Date End Date None, Pcp PCP - General Radiology Assistant 03/29/20 12/31/20 [address] [place] [address] documented as of this encounter
--- OUTSIDE RECORDS SUMMARY | 2022-03-12 08:25 | XMS_ITS | Encounter Summary ---
:1940 Author Organization [facility] Address [address] [place] [address] Care Team Providers Name Role Phone None, Pcp Primary Care Provider Unavailable Encounter Details Date Type Department Care Team Description 09/01/2020 Lab [place] Anemia, unspecified type [address] [place], [place] [address] Social History Tobacco Use [...] Blood (iFOBT)- outpatient (09/01/2020 8:10 AM CDT) [facility] gist Method Time Signature Immunochemical POSITIVE Negative 09/01/2020 [place] Fecal Occult (A) 1:09 PM CDT [facility] Blood [facility] Specimen Anatomical Collection Method Collection Time Receive d Time (Source) Location / / Volume Laterality Stool 09/01/2020 8:10 AM CDT 12:36 PM CDT D. Dontrell Woodward MD LAB BODY FLUIDS AND STOOLS O RDERABLES Performing Organization Address City/State/ZIP Code Phon e Number [facility] [address] [place] [address] documented in this encounter Visit Diagnoses Diagnosis Anemia, unspecified type documented in this encounter Care Teams Livestock Nutrition Territory Manager Relationship Specialty Start Date End Date None, Pcp PCP - General Corrugator 03/29/20 12/31/[address] [place] [address] documented as of this encounter
--- OUTSIDE RECORDS SUMMARY | 2022-03-12 08:25 | XMS_ITS | Encounter Summary ---
:1940 Author Organization [facility] Address [address] [place] [address] Care Team Providers Name Role Phone None, Pcp Primary Care Provider Unavailable Reason for Visit Reason Onset Date Comments Labs Only 08/30/2020 Encounter Details Date Type Department Care Team Description 08/30/2020 Telephone [place] None, Pcp Labs Only [address] [place], [place] [address] [place] [address] Social History Tobacco Use Types [...] You may call the patient back to pick pulling machine operator this kit. Telephone Encounter - Melinda Le MA - 08/30/2020 3:27 PM CDT The hospital lab called and stated that the patient's IFOBT had to be cancelled due to the specimen being too thick. Please replace order and than the patient can be called to pick pulling machine operator another kit. documented in this encounter Plan of Treatment Not on filedocumented as of this encounter Results (ABNORMAL) Immunochemical Fecal Occult Blood (iFOBT)- outpatient (09/01/2020 8:10 AM CDT) [facility] gist Method Time Signature Immunochemical POSITIVE Negative 09/01/2020 [place] Fecal Occult (A) 1:09 PM CDT [facility] Specimen Anatomical Collection Method Collection Time Receive d Time (Source) Location / / Volume Laterality Stool 09/01/2020 8:10 AM CDT 12:36 PM CDT Elisha Woodward MD LAB BODY FLUIDS AND STOOLS O RDERABLES Performing Organization Address City/State/ZIP Code Phon e Number [facility] [address] [place] [phone] documented in this encounter Visit Diagnoses Diagnosis Anemia, unspecified type - Primary documented in this encounter Care Teams Certified Coding Specialist Relationship Specialty Start Date End Date None, Pcp PCP - General Stock Sorter 03/29/20 12/31/20 [address] [place] [address] documented as of this encounter
--- OUTSIDE RECORDS SUMMARY | 2022-03-12 08:25 | XMS_ITS | Encounter Summary ---
:1940 Author Organization [facility] Address [address] [place] [address] Care Team Providers Name Role Phone Laila Loco APRN, APPLICATION PROJECT LEADER Primary Care Provider [phone] Encounter Details Date Type Department Care Team Description 07/06/2019 Lab [place] Love Decreased appetite [address] [place], [place] [address] Social History Tobacco Use [...] carlos enrique etite Results for this RATE SYSTEMS INTEGRATION ENGINEER procedure are i n the results section. CBC BRANCH OFFICE Routine 07/06/2019 9:16 AM Decreased appetit e Results for this W/DIFF SYSTEMS INTEGRATION ENGINEER procedure are i n the results section. SEDIMENTATION RATE, Routine 07/06/2019 9:16 AM Decreased appet ite Results for this AUTOMATED SYSTEMS INTEGRATION ENGINEER procedure are i n the results section. C-REACTIVE PROTEIN Routine 07/06/2019 9:16 AM Decreased appeti te Results for this SYSTEMS INTEGRATION ENGINEER procedure are i n the results section. LIPASE Routine 07/06/2019 9:16 AM Decreased appetite Res ults for this SYSTEMS INTEGRATION ENGINEER procedure are i n the results section. AMYLASE Routine 07/06/2019 9:16 AM Decreased appetite Res ults for this SYSTEMS INTEGRATION ENGINEER procedure are i n the results section. COMPREHENSIVE Routine 07/06/2019 9:16 AM Decreased appetite Re sults for this METABOLIC PANEL SYSTEMS INTEGRATION ENGINEER procedure ar e in the results section. documented in this encounter Results (ABNORMAL) Glomerular filtration rate (GFR) (07/06/2019 9:16 AM SYSTEMS INTEGRATION ENGINEER) athologist Signature GFR 58 (A) 07/06/2019 [facility] 1:32 PM SYSTEMS INTEGRATION ENGINEER CENTER [facility] >60 07/06/2019 [facility] Citizen Of [place] GFR 1:32 PM SYSTEMS INTEGRATION ENGINEER [facility] Comment: GFR calculated from serum creatinine v alue Chronic Kidney Disease less than 60 mL/m in/1.73 m2 Kidney Failure less than 15 mL/min/1.73 m2 Note: effective 09/17/06 IDMS-Traceable MDRD Study Equation used. Specimen Anatomical Collection Method Collection Time Receive d Time (Source) Location / / Volume Laterality 07/06/2019 9:16 AM 0 9:16 SYSTEMS INTEGRATION ENGINEER AM SYSTEMS INTEGRATION ENGINEER Laila Loco APRN, APPLICATION PROJECT LEADER LAB BLOOD ORDERABLES Performing Organization Address City/State/ZIP Code Phon e Number [facility] [address] [place] [phone] CBC Branch Off w/Diff (07/06/2019 9:16 AM SYSTEMS INTEGRATION ENGINEER) athologist Signature WBC 7.1 3.5 - 10.5 07/06/2019 [facility] [place] K/uL 9:33 AM SYSTEMS INTEGRATION ENGINEER [place] RBC 5.12 4.30 - 07/06/2019 [facility] [place] 5.70 M/uL 9:33 AM SYSTEMS INTEGRATION ENGINEER [place] Hemoglobin 15.5 13.5 - 07/06/2019 [facility] [place] 17.5 g/dL 9:33 AM SYSTEMS INTEGRATION ENGINEER [place] Hematocrit 46.5 38.0 - 07/06/2019 [facility] [place] 50.0 % 9:33 AM SYSTEMS INTEGRATION ENGINEER [place] Platelets 242 150 - 450 07/06/2019 [facility] [place] K/uL 9:33 AM SYSTEMS INTEGRATION ENGINEER [place] MCV 90.8 81.2 - 07/06/2019 [facility] [place] 95.1 fL 9:33 AM SYSTEMS INTEGRATION ENGINEER [place] MCH 30.3 26.0 - 07/06/2019 [facility] [place] 32.0 pg 9:33 AM SYSTEMS INTEGRATION ENGINEER [place] MCHC 33.3 32.0 - 07/06/2019 [facility] [place] 36.0 g/dL 9:33 AM SYSTEMS INTEGRATION ENGINEER [place] RDW 14.5 11.8 - 07/06/2019 [facility] [place] 15.6 % 9:33 AM SYSTEMS INTEGRATION ENGINEER [place] Lymphocytes % 19.8 18.0 - 07/06/2019 [facility] [place] 45.0 % 9:33 AM SYSTEMS INTEGRATION ENGINEER [place] Mid-size Cells 9.1 3.3 - 10.1 07/06/2019 [facility] [place] % 9:33 AM SYSTEMS INTEGRATION ENGINEER [place] Granulocytes/Urszula 71.1 45.8 - 07/06/2019 [facility] [place] trophils 73.7 % 9:33 AM SYSTEMS INTEGRATION ENGINEER [place] Lymphocytes 1.4 0.9 - 2.9 07/06/2019 [facility] [place] Absolute K/uL 9:33 AM SYSTEMS INTEGRATION ENGINEER [place] MIDS Absolute 0.6 0.2 - 0.8 07/06/2019 [facility] [place] K/uL 9:33 AM SYSTEMS INTEGRATION ENGINEER [place] Granulocytes/Urszula 5.1 2.1 - 8.7 07/06/2019 [facility] [place] trophils K/uL 9:33 AM SYSTEMS INTEGRATION ENGINEER [place] Absolute Specimen Anatomical Collection Method Collection Time Receive d Time (Source) Location / / Volume Laterality Blood 07/06/2019 9:16 AM 0 9:21 SYSTEMS INTEGRATION ENGINEER AM SYSTEMS INTEGRATION ENGINEER Laila Loco IMPREGNATOR HELPER, APPLICATION PROJECT LEADER LAB BLOOD ORDERABLES Performing Organization Address City/State/ZIP Code Phon e Number [facility] [place] [address] [place] [address] (ABNORMAL) Comprehensive metabolic panel (07/06/2019 9:16 AM [facility]) [facility] gist Method Time Signature Total Protein 8.6 (H) 6.3 - 8.2 07/06/2019 [facility] g/dL 1:32 PM [facility] Albumin, Serum 4.5 3.5 - 5.0 07/06/2019 [facility] g/dL 1:32 PM [facility] Total Bilirubin 1.3 (H) 0.1 - 1.0 07/06/2019 [facility] mg/dL 1:32 PM [facility] AST 26 8 - 48 U/L 07/06/2019 [facility] 1:32 PM [facility] Alkaline 134 (H) 38 - 128 07/06/2019 [facility] Phosphatase U/L 1:32 PM [facility] ALT (SGPT) 21 0 - 49 U/L 07/06/2019 [facility] 1:32 PM [facility] Sodium 140 135 - 145 07/06/2019 [facility] mEq/L 1:32 PM [facility] Potassium 4.2 3.5 - 5.1 07/06/2019 [facility] mEq/L 1:32 PM [facility] Chloride 100 98 - 107 07/06/2019 [facility] mEq/L 1:32 PM [facility] CO2 28 22 - 31 07/06/2019 [facility] mmol/L 1:32 PM [facility] BUN 13 5 - 25 07/06/2019 [facility] mg/dL 1:32 PM [facility] Creatinine 1.2 0.6 - 1.4 07/06/2019 [facility] mg/dL 1:32 PM [facility] Glucose 117 (H) 70 - 100 07/06/2019 [facility] mg/dL 1:32 PM [facility] Calcium, Total,S 9.7 8.4 - 10.2 07/06/2019 [facility] mg/dL 1:32 PM [facility] Fasting? Yes 07/06/2019 [facility] 9:21 AM [facility] Specimen Anatomical Collection Method Collection Time Receive d Time (Source) Location / / Volume Laterality Blood 07/06/2019 9:16 AM 0 SYSTEMS INTEGRATION ENGINEER 12:32 PM [facility] Laila Loco APRN, CNP LAB BLOOD ORDERABLES Performing Organization Address City/[facility] Phon e Number [facility] [address] [place] [phone] (ABNORMAL) Amylase (07/06/2019 9:16 AM SYSTEMS INTEGRATION ENGINEER) athologist Signature Amylase 173 (H) 30 - 110 07/06/2019 [facility] U/L 1:32 PM SYSTEMS INTEGRATION ENGINEER CENTER [facility] Specimen Anatomical Collection Method Collection Time Receive d Time (Source) Location / / Volume Laterality Blood (Blood, 07/06/2019 9:16 AM 07/06/19 20 Venous) SYSTEMS INTEGRATION ENGINEER 12:32 PM SYSTEMS INTEGRATION ENGINEER aLila Loco APRN, CNP LAB BLOOD ORDERABLES Performing Organization Address [facility] Phon e Number [facility] [address] [place] [address] Lipase (07/06/2019 9:16 AM SYSTEMS INTEGRATION ENGINEER) athologist [facility] Lipase 85 23 - 300 07/06/2019 [facility] U/L 1:32 PM [facility] Specimen Anatomical Collection Method Collection Time Receive d Time (Source) Location / / Volume Laterality Blood (Blood, 07/06/2019 9:16 AM 07/06/19 20 Venous) SYSTEMS INTEGRATION ENGINEER 12:32 PM SYSTEMS INTEGRATION ENGINEER Laila Loco APRN, CNP LAB BLOOD ORDERABLES Performing Organization Address [facility] e Number [facility] [address] [place] [phone] (ABNORMAL) ESR-Sed rate (07/06/2019 9:16 AM SYSTEMS INTEGRATION ENGINEER) athologist Signature Sed Rate 36 (H) 0 - 22 07/06/2019 [facility] mm/hr 1:40 PM SYSTEMS INTEGRATION ENGINEER [facility] Specimen Anatomical Collection Method Collection Time Receive d Time (Source) Location / / Volume Laterality Blood (Blood, 07/06/2019 9:16 AM 07/06/19 20 Venous) SYSTEMS INTEGRATION ENGINEER 12:32 PM SYSTEMS INTEGRATION ENGINEER Laila Loco APRN, CNP LAB BLOOD ORDERABLES Performing Organization Address City/[facility] Phon e Number [facility] [address] [place] [address] C-reactive protein (07/06/2019 9:16 AM SYSTEMS INTEGRATION ENGINEER) P athologist Signature CRP 2.0 0.0 - 4.9 07/06/2019 [facility] mg/L 1:32 PM SYSTEMS INTEGRATION ENGINEER [facility] Specimen Anatomical Collection Method Collection Time Receive d Time (Source) Location / / Volume Laterality Blood (Blood, 07/06/2019 9:16 AM 07/06/19 20 Venous) SYSTEMS INTEGRATION ENGINEER 12:32 PM SYSTEMS INTEGRATION ENGINEER Laila Loco APRN, CNP LAB BLOOD ORDERABLES Performing Organization Address City/State/[facility] Code Phon e Number [facility] [address] [place] [address] documented in this encounter Visit Diagnoses Diagnosis Decreased appetite Anorexia documented in this encounter Care Teams [place] Archeology Professor Relationship Specialty Start Date End Date Laila Loco APRN, CNP PCP - General 12/09/17 01/10/20 [address] [place] [address] documented as of this encounter
--- OUTSIDE RECORDS SUMMARY | 2022-03-12 08:25 | XMS_ITS | Encounter Summary ---
:1940 Author Organization [facility] Address [address] [place] [address] Care Team Providers Name Role Phone None, Pcp Primary Care Provider Unavailable Encounter Details Date Type Department Care Team Description 08/27/2020 Orders Only [place] Elisha Woodward MD [address] [facility] [address] [place], [place] [address] [place], [place] [phone] (Wo rk) Social History Tobacco Use Types [...] filedocumented in this encounter Care Teams Associate Professor Of Kinesiology Relationship Specialty Start Date End Date None, Pcp PCP - General Assistant Cross Country Coach 03/29/20 12/31/20 [address] [place] [address] documented as of this encounter
--- OUTSIDE RECORDS SUMMARY | 2022-03-12 08:25 | XMS_ITS | Encounter Summary ---
:1940 Author Organization [facility] Address [address] [place] [address] Care Team Providers Name Role Phone None, Pcp Primary Care Provider Unavailable Encounter Details Date Type Department Care Team Description 08/21/2020 Lab [place] Screening for deficiency ane elif; [address] Essential hypertension; [place], [place] [address] Diabetes mellitus screening; [phone] Hyperlipidemia, unspecified hyperlipidemia type Social History Tobacco [...] AM CDT) athologist Signature GFR >60 08/21/2020 [facility] 12:57 PM CDT [facility] >60 08/21/2020 [facility] Armenian GFR 12:57 PM CDT [facility] Comment: [...] City/State/ZIP Code Phon e Number [facility] [address] [place] [address] (ABNORMAL) CBC Branch Off w/Diff (08/21/2020 10:31 AM CDT) Patholo gist Method Time Signature WBC 6.7 3.5 - 10.5 08/21/2020 [facility] K/uL 10:41 AM CDT [place] RBC 4.50 4.30 - 08/21/2020 [facility] [place] 5.70 M/uL 10:41 AM CDT [place] Hemoglobin 12.8 (L) 13.5 - 08/21/2020 [facility] [place] 17.5 g/dL 10:41 AM CDT [place] Hematocrit 39.8 38.0 - 08/21/2020 [facility] 50.0 % 10:41 AM CDT [place] Platelets 218 150 - 450 08/21/2020 [facility] K/uL 10:41 AM CDT [place] MCV 88.4 81.2 - 08/21/2020 [facility] 95.1 fL 10:41 AM CDT [place] MCH 28.4 26.0 - 08/21/2020 [facility] 32.0 pg 10:41 AM CDT [place] MCHC 32.2 32.0 - 08/21/2020 [facility] 36.0 g/dL 10:41 AM CD[facility] [place] RDW 14.7 11.8 - 08/21/2020 [facility] 15.6 % 10:41 AM CDT [place] Lymphocytes % 27.0 % 08/21/2020 [facility] 10:41 AM CDT [place] Mid-size Cells 7.5 % 08/21/2020 [facility] 10:41 AM CDT [place] Granulocytes/Urszula 65.5 % 08/21/2020 [facility] trophils 10:41 AM CDT [place] Lymphocytes 1.8 0.9 - 2.9 08/21/2020 [facility] Absolute K/uL 10:41 AM CDT [place] MIDS Absolute 0.5 0.4 - 1.5 08/21/2020 [facility] K/uL 10:41 AM CDT [place] Granulocytes/Urszula 4.4 1.7 - 7.0 08/21/2020 [facility] trophils K/uL 10:41 AM CDT [place] Absolute Specimen Anatomical Collection Method Collection Time Receive d Time (Source) Location / / Volume Laterality 08/21/2020 10:31 08/21/2020 AM CDT 10:35 AM CDT D. Dontrell Woodward MD LAB BLOOD ORDERABLES Performing Organization Address City/State/ZIP Code Phon e Number [facility] [address] [place] [address] (ABNORMAL) Lipid panel (08/21/2020 10:31 AM CDT) athologist Signature Cholesterol 166 0 - 199 08/22/2020 [facility] mg/dL 2:11 PM CDT [facility] Comment: Recommended by National Cholesterol Education Program (ATP III) -------- Cholesterol Ranges -------- <200 ?Desirable 200-239 ? Borderline high >=240 ? High Triglycerides 167 (H) 0 - 149 mg/dL 08/22/2020 2:[address] [facility] Comment: -------- TRIG Ranges -------- <150 ?Normal 150-199 ? Borderline high 200-499 ? High >=500 ? Very high HDL 37 (L) 40 - 250 mg/dL 08/22/2020 2:11 PM CDT [facility] Comment: -------- HDL Ranges -------- <40 ?Low 40-59 ?Normal >=60 ? Optimal LDL Calculated 96 0 - 99 mg/dL 08/22/2020 2:[address] [facility] Comment: -------- LDL Ranges -------- [...] City/State/ZIP Code Phon e Number [facility] [address] [place] [address] (ABNORMAL) Basic metabolic panel (08/21/2020 10:31 AM CDT) P athologist Signature Sodium 142 135 - 145 08/21/2020 [facility] [place] mmol/L 12:57 PM CDT [place] Potassium 3.8 3.5 - 5.1 08/21/2020 [facility] [place] mmol/L 12:57 PM CDT [place] Comment: . Chloride 105 98 - 107 mmol/L 08/21/2020 12:57 PM CDT [facility] [place] Comment: . CO2 27 22 - 31 mmol/L 08/21/2020 12:57 PM CDT [facility] [place] Comment: . Creatinine 1.0 0.6 - 1.4 mg/dL 08/21/2020 12:57 PM CDT [facility] [place] Comment: . BUN 9 5 - 25 mg/dL 08/21/2020 12:57 PM CDT [facility] [place] Comment: . Glucose 105 (H) 70 - 100 mg/dL 08/21/2020 12:57 PM [facility] [place] CDT Calcium, Total,S 8.7 8.4 - 10.2 mg/dL 08/21/2020 12:57 PM [facility] [place] CDT Comment: . Fasting? Yes 08/21/2020 10:35 AM CDT [facility] [place] Specimen Anatomical Collection Method Collection Time Receive d Time (Source) Location / / Volume Laterality Blood 08/21/2020 10:31 08/21/2020 AM CDT 10:35 AM CDT D. Dontrell Woodward MD LAB BLOOD ORDERABLES Performing Organization Address City/State/ZIP Code Phon e Number [facility] [place] [address] [place] [address] documented in this encounter Visit Diagnoses Diagnosis Screening for deficiency anemia Screening for other and unspecified defi ciency anemia Essential hypertension Unspecified essential hypertension Diabetes mellitus screening Screening for diabetes mellitus Hyperlipidemia, unspecified hyperlipidem ia type documented in this encounter Care Teams Cook Seafood Relationship Specialty Start Date End Date None, Pcp PCP - General Vp Ad Sales West 03/29/20 12/31/20 [address] [place] [address] documented as of this encounter
--- OUTSIDE RECORDS SUMMARY | 2022-03-12 08:25 | XMS_ITS | Encounter Summary ---
:[address] [facility] Address [address] [place] [address] Care Team Providers Name Role Phone Laila Loco APRN, IRA Primary Care Provider [phone] Reason for Visit Reason Onset Date Comments Shoulder pain 11/11/2019 Encounter Details Date Type Department Care Team Description 11/11/2019 Telephone [place] Elisha Woodward MD Shoulder pain [address] [place], [place] [address] [place], [place] [phone] (Wo rk) Social History Tobacco Use Types [...] with a nurse. Please call Pt at [phone] to advise. documented in this encounter Plan [...] City/State/ZIP Code Phon e Number [facility] [address] [place] [address] Liver panel (11/16/2019 8:19 AM CDT) P athologist Signature Total Protein 7.0 6.3 - 8.2 11/16/2019 [facility] g/dL 2:07 PM CDT [facility] Albumin, Serum 4.1 3.5 - 5.0 11/16/2019 [facility] g/dL 2:07 PM CDT [facility] Total Bilirubin 1.0 0.1 - 1.0 11/16/2019 [facility] mg/dL 2:07 PM [facility] Bilirubin, <0.1 0.0 - 0.3 11/16/2019 [facility] Direct mg/dL 2:07 PM [facility] AST 25 8 - 48 U/L 11/16/2019 [facility] 2:07 PM [facility] Alkaline 116 38 - 128 11/16/2019 [facility] Phosphatase U/L 2:07 PM [facility] ALT (SGPT) 20 0 - 49 U/L 11/16/2019 [facility] 2:07 PM [facility] Specimen Anatomical Collection Method Collection Time Receive d Time (Source) Location / / Volume Laterality Blood 11/16/2019 8:19 AM 0 1:02 CDT PM CDT D. Dontrell Woodward MD LAB BLOOD ORDERABLES Performing Organization Address City/State/ZIP Code Phon e Number [facility] [address] [place] [address] documented in this encounter Visit Diagnoses Diagnosis Diabetes mellitus screening - Primary Screening for diabetes mellitus Medication monitoring encounter Encounter for therapeutic drug monitorin g documented in this encounter Care Teams [place] Worker Relationship Specialty Start Date End Date Laila Loco, SUPERVISING ARCHITECT, DBA PCP - General 12/09/17 01/10/[address] [place] [phone] documented as of this encounter
--- OUTSIDE RECORDS SUMMARY | 2022-03-12 08:25 | XMS_ITS | Encounter Summary ---
:[address] [facility] Address [address] [place] [address] Care Team Providers Name Role Phone None, Pcp Primary Care Provider Unavailable Reason for Visit Reason Onset Date Comments Lab result 09/01/2020 Encounter Details Date Type Department Care Team Description 09/01/2020 Telephone [place] Elisha Woodward MD Lab result [address] [place], [place] [address] [place], [place] [phone] (Wo rk) Social History Tobacco Use Types [...] if possible. Please call Pt at home [phone] or cell [phone] to advise. documented in this encounter Plan of Treatment Not on filedocumented as of this encounter Visit Diagnoses Diagnosis Colon cancer screening - Primary Special screening for malignant neoplasm s, colon documented in this encounter Care Teams Marketing Support Coordinator Relationship Specialty Start Date End Date None, Pcp PCP - General Assembler Garment Form 03/29/20 12/31/20 [address] [place] [address] documented as of this encounter
--- OUTSIDE RECORDS SUMMARY | 2022-03-12 08:25 | XMS_ITS | Encounter Summary ---
:1940 Author Organization [facility] Address [address] [place] [address] Care Team Providers Name Role Phone None, Pcp Primary Care Provider Unavailable Encounter Details Date Type Department Care Team Description 08/27/2020 Orders Only Elisha Young Colon cancer screening (Prim irvin Dx); [address] MD Dont[place] Anemia, unspecified type [place], [place] [address] [address] [facility] [address] [place] [address] Social History Tobacco Use Types Packs/Day Years [...] type documented in this encounter Care Teams Billet Driller Relationship Specialty Start Date End Date None, Pcp PCP - General Wind Up Operator 03/29/20 12/31/20 [address] [place] [address] documented as of this encounter
--- OUTSIDE RECORDS SUMMARY | 2022-03-12 08:25 | XMS_ITS | Encounter Summary ---
:1940 Author Organization [facility] Address [address] [place] [address] Care Team Providers Name Role Phone Laila Loco APRN, ROLLER PNEUMATIC Primary Care Provider [phone] Encounter Details Date Type Department Care Team Description 06/28/2019 Lab [place] Cough [address] [place], [place] [address] Social History Tobacco Use [...] AM Cough Res ults for this W/DIFF HOT KNIFE CUTTER procedure are i n the results section. documented in this encounter Results (ABNORMAL) CBC Branch Off w/Diff (06/28/2019 11:22 AM HOT KNIFE CUTTER) [facility] gist Method Time Signature WBC 7.1 3.5 - 10.5 06/28/2019 [facility] K/uL 1:04 PM HOT KNIFE CUTTER [place] RBC 4.87 4.30 - 06/28/2019 [facility] 5.70 M/uL 1:04 PM HOT KNIFE CUTTER [place] Hemoglobin 14.6 13.5 - 06/28/2019 [facility] 17.5 g/dL 1:04 PM HOT KNIFE CUTTER [place] Hematocrit 44.6 38.0 - 06/28/2019 [facility] 50.0 % 1:04 PM HOT KNIFE CUTTER [place] Platelets 221 150 - 450 06/28/2019 [facility] K/uL 1:04 PM HOT KNIFE CUTTER [place] MCV 91.6 81.2 - 06/28/2019 [facility] 95.1 fL 1:04 PM HOT KNIFE CUTTER [place] MCH 30.0 26.0 - 06/28/2019 [facility] 32.0 pg 1:04 PM HOT KNIFE CUTTER [place] MCHC 32.7 32.0 - 06/28/2019 [facility] 36.0 g/dL 1:04 PM HOT KNIFE CUTTER [place] RDW 14.5 11.8 - 06/28/2019 [facility] 15.6 % 1:04 PM HOT KNIFE CUTTER [place] Lymphocytes % 18.9 18.0 - 06/28/2019 [facility] 45.0 % 1:04 PM HOT KNIFE CUTTER [place] Mid-size Cells 5.6 3.3 - 10.1 06/28/2019 [facility] % 1:04 PM HOT KNIFE CUTTER [place] Granulocytes/Urszula 75.5 (H) 45.8 - 06/28/2019 [facility] trophils 73.7 % 1:04 PM HOT KNIFE CUTTER [place] Lymphocytes 1.3 0.9 - 2.9 06/28/2019 [facility] Absolute K/uL 1:04 PM HOT KNIFE CUTTER [place] MIDS Absolute 0.4 0.2 - 0.8 06/28/2019 [facility] K/uL 1:04 PM HOT KNIFE CUTTER [place] Granulocytes/Urszula 5.4 2.1 - 8.7 06/28/2019 [facility] [place] trophils K/uL 1:04 PM HOT KNIFE CUTTER [place] Absolute Specimen Anatomical Collection Method Collection Time Receive d Time (Source) Location / / Volume Laterality Blood 06/28/2019 11:22 06/28/2019 AM HOT KNIFE CUTTER 11:22 AM HOT KNIFE CUTTER Laila Loco APRN, ROLLER PNEUMATIC LAB BLOOD ORDERABLES Performing Organization Address City/State/ZIP Code Phon e Number [facility] [address] [place] [address] documented in this encounter Visit Diagnoses Diagnosis Cough documented in this encounter Care Teams Buttonhole Marker Relationship Specialty Start Date End Date Laila Loco APRN, ROLLER PNEUMATIC PCP - General 12/09/17 01/10/[address] [place] [address] [place] [address] documented as of this encounter
--- OUTSIDE RECORDS SUMMARY | 2022-03-12 08:25 | XMS_ITS | Encounter Summary ---
:1940 Author Organization [facility] Address [address] [place] [address] Care Team Providers Name Role Phone None, Pcp Primary Care Provider Unavailable Reason for Visit Reason Comments Wants cholesterol checked Encounter Details Date Type Department Care Team Description 08/21/2020 Office Visit Elisha Young Hyperlipidemia, unspecified hyperlipidemia type (Primary Dx); [address] MD Dontrell Screening for deficiency anemia; [place] [address] Essential h ypertension; [address] [place] [address] Diabetes mellitus screening [phone] [place] [address] Social History Tobacco Use Types Packs/Day Years [...] 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 His other medicationsinclude a small amount of [...] Signature Sodium 142 135 - 145 08/21/2020 [facility] [place] mmol/L 12:57 PM CDT [place] Potassium 3.8 3.5 - 5.1 08/21/2020 [facility] [place] mmol/L 12:57 PM CDT [place] Comment: . Chloride 105 98 - 107 mmol/L 08/21/2020 12:57 PM CDT [facility] [place] [place] Comment: . CO2 27 22 - 31 mmol/L 08/21/2020 12:57 PM CDT [facility] [place] Comment: . Creatinine 1.0 0.6 - 1.4 mg/dL 08/21/2020 12:57 PM CDT [facility] [place] Comment: . BUN 9 5 - 25 mg/dL 08/21/2020 12:57 PM CDT [facility] [place] Comment: . Glucose 105 (H) 70 - 100 mg/dL 08/21/2020 12:57 PM [facility] [place] CDT Calcium, Total,S 8.7 8.4 - 10.2 mg/dL 08/21/2020 12:57 PM [facility] [place] CDT Comment: . Fasting? Yes 08/21/2020 10:35 AM CDT [facility] [place] Specimen Anatomical Collection Method Collection Time Receive d Time (Source) Location / / Volume Laterality Blood 08/21/2020 10:31 08/21/2020 AM CDT 10:35 AM CDT D. Dontrell [place] MD LAB BLOOD ORDERABLES Performing Organization Address City/State/ZIP Code Phon e Number [facility] [place] [address] [place] [address] (ABNORMAL) Lipid panel (08/21/2020 10:31 AM CDT) athologist Signature Cholesterol 166 0 - 199 08/22/2020 [facility] mg/dL 2:11 PM CDT [facility] Comment: Recommended by National Cholesterol Education Program (ATP III) -------- Cholesterol Ranges -------- <200 ?Desirable 200-239 ? Borderline high >=240 ? High Triglycerides 167 (H) 0 - 149 mg/dL 08/22/2020 2:11 PM CDT [facility] Comment: -------- TRIG Ranges -------- <150 ?Normal 150-199 ? Borderline high 200-499 ? High >=500 ? Very high HDL 37 (L) 40 - 250 mg/dL 08/22/2020 2:11 PM CDT [facility] Comment: -------- HDL Ranges -------- <40 ?Low 40-59 ?Normal >=60 ? Optimal LDL Calculated 96 0 - 99 mg/dL 08/22/2020 2:11 PM CDT [facility] Comment: -------- LDL Ranges [...] [facility] [address] [place] [address] documented in this encounter Visit Diagnoses Diagnosis Hyperlipidemia, unspecified hyperlipidem ia type - Primary Screening for deficiency anemia Screening for other and unspecified defi ciency anemia Essential hypertension Unspecified essential hypertension Diabetes mellitus screening Screening for diabetes mellitus documented in this encounter Care Teams Principal Quality Engineer Relationship Specialty Start Date End Date None, Pcp PCP - General Hide Handler 03/29/20 12/31/20 [address] [place] [address] documented as of this encounter
--- OUTSIDE RECORDS SUMMARY | 2022-03-12 08:25 | XMS_ITS | Encounter Summary ---
:1940 Author Organization [facility] Address [address] [place] [address] Care Team Providers Name Role Phone None, Pcp Primary Care Provider Unavailable Encounter Details Date Type Department Care Team Description 08/29/2020 Lab [place] Colon cancer screening; [address] [...] type documented in this encounter Care Teams Front Line Supervisor Relationship Specialty Start Date End Date None, Pcp PCP - General Manager Hospital 03/29/20 12/31/20 [address] [place] [address] documented as of this encounter
--- OUTSIDE RECORDS SUMMARY | 2022-03-12 08:25 | XMS_ITS | Encounter Summary ---
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, unspecified vessel or lesion type, unspecified whether [place] or transplanted heart; [place] [address] Immunization due; [phone] [place] Excessive cerumen in ear [place], [place] [address] Social History Tobacco Use Types Packs/Day Years [...] Comments Blood Pressure 140/80 03/29/2020 10:39 AM LOGGING TRACTOR OPERATOR SWAMP Pulse 94 03/29/2020 10:39 AM LOGGING TRACTOR OPERATOR SWAMP Temperature 37 ??C (98.6 ??F) 03/29/2020 10:39 AM LOGGING TRACTOR OPERATOR SWAMP Respiratory Rate 16 03/29/2020 10:39 AM LOGGING TRACTOR OPERATOR SWAMP Oxygen Saturation 91% 03/29/2020 10:39 AM LOGGING TRACTOR OPERATOR SWAMP Inhaled Oxygen Concentration - - Weight 70.5 kg (155 lb 6.4 oz) 03/29/2020 10:39 AM LOGGING TRACTOR OPERATOR SWAMP Height 167.4 cm (5' 5.91) 03/29/2020 10:39 AM LOGGING TRACTOR OPERATOR SWAMP Body Mass Index 25.15 03/29/2020 10:39 AM LOGGING TRACTOR OPERATOR SWAMP documented in this encounter Progress Notes Elisha [...] though he also sees providers at the [facility] site here in [place]. 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 Just my own personal review SMOKING QUIT [...] he was working he worked in the [employer] business he has been for 52 years [...] unspecified vessel or lesion type, unspecified whether [place] or transplanted heart - nitroglycerin (NITROSTAT) 0.4 [...] prescription for Debrox solution that he can pick remover at his local pharmacy. Returnas needed. ING TRACTOR OPERATOR SWAMP documented in this encounter Miscellaneous Notes Addendum Note - Kathleen Pruitt RN - 03/29/2020 10:40 AM LOGGING TRACTOR OPERATOR SWAMP Addended by: KATHLEEN PRUITT on: 03/31/2020 09:15 AM Modules accepted: Orders ING TRACTOR OPERATOR SWAMP Addendum Note - Kathleen Pruitt RN - 03/29/2020 10:40 AM LOGGING TRACTOR OPERATOR SWAMP Addended by: KATHLEEN PRUITT on: 03/31/2020 09:47 AM Modules accepted: Orders ING TRACTOR OPERATOR SWAMP documented in this encounter Plan of Treatment Scheduled Orders Name Type Priority Associated Diagnoses Order S chedule Ear cerumen removal Procedures Routine Excessive cerumen in 1 Occurrences starting ear canal, bilateral 020 until 03/31/2021 documented as of this encounter Visit Diagnoses Diagnosis Bilateral impacted cerumen - Primary Impacted cerumen 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
--- OUTSIDE RECORDS SUMMARY | 2022-03-12 08:26 | XMS_ITS | Encounter Summary ---
:1940 Author Organization [facility] Address [address] [place] [address] Care Team Providers Name Role Phone Laila Loco APRN, [place] Primary Care Provider [phone] Reason for Visit Reason Comments EARS PLUGGED Encounter Details Date Type Department Care Team Description 04/02/2019 Office Visit [place], Bilateral impacted [address] ST[place] (Primary Dx) [place] [address] [place], [place] [address]e. [phone] [address] [place] [address] Social History Tobacco Use Types Packs/Day Years [...] Comments Blood Pressure 132/80 04/02/2019 10:41 AM FOOD OR BAGGAGE HANDLING RAMPMAN Pulse 78 04/02/2019 10:41 AM FOOD OR BAGGAGE HANDLING RAMPMAN Temperature 35.6 ??C (96.1 ??F) 04/02/2019 10:41 AM FOOD OR BAGGAGE HANDLING RAMPMAN Respiratory Rate 16 04/02/2019 10:41 AM FOOD OR BAGGAGE HANDLING RAMPMAN Oxygen Saturation 93% 04/02/2019 10:41 AM FOOD OR BAGGAGE HANDLING RAMPMAN Inhaled Oxygen Concentration - - Weight 65.1 kg (143 lb 8.3 oz) 04/02/2019 10:41 AM FOOD OR BAGGAGE HANDLING RAMPMAN Height 168 cm (5' 6.14) 04/02/2019 10:41 AM FOOD OR BAGGAGE HANDLING RAMPMAN Body Mass Index 23.07 04/02/2019 10:41 AM FOOD OR BAGGAGE HANDLING RAMPMAN documented in this encounter Progress Notes Greer Gar PA-C - 04/02/2019 11:00 AM CST Subjective Patient ID: Obey Vines is a 79 y.o. male. Chief Complaint Patient presents with ??? EARS PLUGGED HPI Patient is a 79-year-old white male who presents at the clinic today requesting to have his ears irrigated. He wears bilateral hearing aids and was to see his hearing healthcare practitioner a week or so ago. He was [...] irrigation completed by nursing staff. Follow-up with green chain worker on a regular basis. Ears were irrigated by nursing staff for clearance. Patient had no concerns following irrigation. Will follow up on a as needed basis. OR BAGGAGE HANDLING RAMPMAN documented in this encounter Miscellaneous Notes Assessment [...] irrigation completed by nursing staff. Follow-up with green chain worker on a regular basis. OR BAGGAGE HANDLING RAMPMAN documented in this encounter Plan of Treatment Not on filedocumented as of this encounter Visit Diagnoses Diagnosis Bilateral impacted cerumen - Primary Impacted cerumen documented in this encounter Care Teams Cyber Forensics Analyst Relationship Specialty Start Date End Date Laila Loco APRN, THERAPY ADMINISTRATIVE ASSISTANT PCP - General 12/09/17 01/10/20 [address] [place] [address] documented as of this encounter
--- OUTSIDE RECORDS SUMMARY | 2022-03-12 08:26 | XMS_ITS | Encounter Summary ---
:1940 Author Organization [facility] Address [address] [place] [address] Care Team Providers Name Role Phone Laila Loco APRN, IRA Primary Care Provider [phone] Encounter Details Date Type Department Care Team [...] on filedocumented in this encounter Care Teams Glass Technician/Installer Relationship Specialty Start Date End Date Laila Loco, TILE ROOFER, WRAPPER CASHIER PCP - General 12/09/17 01/10/20 100 [facility] [place] [id number] documented as of this encounter
--- OUTSIDE RECORDS SUMMARY | 2022-03-12 08:26 | XMS_ITS | Encounter Summary ---
:1940 Author Organization [facility] Address [address] [place] [address] Care Team Providers Name Role Phone Laila Loco SENIOR COMMUNICATIONS ENGINEER, LINE WELDER Primary Care Provider [phone] Reason for Visit Reason Onset Date Comments Talk with Rajan Loco 08/25/2018 Encounter Details Date Type Department Care Team Description 08/25/2018 Telephone [place] Laila Loco, Talk with Rajan Loco [address] SENIOR COMMUNICATIONS ENGINEER, LINE WELDER [place], [place] [address] [facility] [phone] [place], [place] [address] Social History Tobacco Use [...] Rajan's request. She can be reached at [phone]. documented in this encounter Plan of Treatment Not on filedocumented as of this encounter Visit Diagnoses Not on filedocumented in this encounter Care Teams Bowl Sander Relationship Specialty Start Date End Date Laila Loco APRN, LINE WELDER PCP - General 12/09/17 01/10/[address] [place] [address] [facility] [place] [address] documented as of this encounter
--- OUTSIDE RECORDS SUMMARY | 2022-03-12 08:26 | XMS_ITS | Encounter Summary ---
:1940 Author Organization [facility] Address [address] [place] [address] Care Team Providers Name Role Phone Laila Loco BATCH TANK CONTROLLER, GRADING SUPERVISOR Primary Care Provider Encounter Details Date Type Department Care Team Description 10/14/2018 Telephone [place] Laila Loco, [address] BATCH TANK CONTROLLER, [place] [address] [facility] [phone] [place], [place] [address] Social History Tobacco Use [...] seen on the schedule for 10/13/18 per [facility] protocol. Telephone Encounter - Laila Loco APRN, IRA - 10/14/2018 5:47 AM CDT Please remove my schedule from October 13, 2018. Thanks Rajan documented in this encounter Plan of Treatment Not on filedocumented as of this encounter Visit Diagnoses Not on filedocumented in this encounter Care Teams Inspector Watch Assembly Relationship Specialty Start Date End Date Laila Loco APRN, GRADING SUPERVISOR PCP - General 12/09/17 01/10/[address] [place] [address] [place] [id number] documented as of this encounter
--- OUTSIDE RECORDS SUMMARY | 2022-03-12 08:26 | XMS_ITS | Encounter Summary ---
:1940 Author Organization [facility] Address [address] [place] [address] Care Team Providers Name Role Phone Laila Loco APRN, IRA Primary Care Provider [phone] Encounter Details Date Type Department Care Team Description 04/22/2019 Lab [place] Prediabetes; [address] Screening PSA (prostate spec ific antigen); [place], [place] [address] Hyperlipidemia, unspecified hyperlipidemia type; [phone] Coronary artery 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 pectoris, unspecified vessel or lesion type, unspecified whether [place] or transplanted heart; Medication jose toring encounter; [...] 9:37 Hyperlipidemia, Results for this RATE AM TOBACCO DRUMMER unspecified procedure are i n hyperlipidemia t ype the results Coronary artery section. 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 pectoris, unspecified vessel or lesion type, unspecified whether [place] or transplanted heart Medication monitoring encounter CBC BRANCH OFFICE Routine 04/22/2019 9:37 Other fatigue Results for this W/DIFF AM TOBACCO DRUMMER Screening, anemia, procedure are in deficiency, iron the results section. PSA Routine 04/22/2019 9:37 Screening PSA Results for this AM TOBACCO DRUMMER (prostate specific procedure are in antigen) the results section. HEMOGLOBIN A1C Routine 04/22/2019 9:37 Prediabetes Results fo r this AM TOBACCO DRUMMER procedure are i n the results section. LIPID PANEL Routine 04/22/2019 9:37 Hyperlipidemia, Results f or this AM TOBACCO DRUMMER unspecified procedure are i n hyperlipidemia type the resu lts section. COMPREHENSIVE Routine 04/22/2019 9:37 Hyperlipidemia, Results for this METABOLIC PANEL AM TOBACCO DRUMMER unspecified procedure ar e in hyperlipidemia t ype the results Coronary artery section. 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 pectoris, unspecified vessel or lesion type, unspecified whether [place] or transplanted heart Medication monitoring encounter documented in this encounter Results (ABNORMAL) Glomerular filtration rate (GFR) (04/22/2019 9:37 AM TOBACCO DRUMMER) P athologist Signature GFR 53 (A) 04/22/2019 [facility] 1:05 PM TOBACCO DRUMMER [facility] >60 04/22/2019 [facility] [place] GFR 1:05 PM TOBACCO DRUMMER [facility] Comment: GFR calculated from serum creatinine v alue Chronic Kidney Disease less than 60 mL/m in/1.73 m2 Kidney Failure less than 15 mL/min/1.73 m2 Note: effective 09/17/06 IDMS-Traceable MDRD Study Equation used. Specimen Anatomical Collection Method Collection Time Receive d Time (Source) Location / / Volume Laterality 04/22/2019 9:37 AM 9 9:37 TOBACCO DRUMMER AM TOBACCO DRUMMER Laila Loco ARCHITECTURAL INTERN, SWEATBAND PERFORATOR LAB BLOOD ORDERABLES Performing Organization Address City/State/ZIP Code Phon e Number [facility] [address] [place] [id number] CBC Branch Off w/Diff (04/22/2019 9:37 AM TOBACCO DRUMMER) P athologist Signature WBC 8.6 3.5 - 10.5 04/22/2019 [facility] K/uL 9:48 AM TOBACCO DRUMMER [place] RBC 4.94 4.30 - 04/22/2019 [facility] 5.70 M/uL 9:48 AM TOBACCO DRUMMER [place] Hemoglobin 15.1 13.5 - 04/22/2019 [facility] 17.5 g/dL 9:48 AM TOBACCO DRUMMER [place] Hematocrit 45.4 38.0 - 04/22/2019 [facility] 50.0 % 9:48 AM TOBACCO DRUMMER [place] Platelets 279 150 - 450 04/22/2019 [facility] [place] K/uL 9:48 AM TOBACCO DRUMMER [place] MCV 91.9 81.2 - 04/22/2019 [facility] [place] 95.1 fL 9:48 AM TOBACCO DRUMMER [place] MCH 30.6 26.0 - 04/22/2019 [facility] 32.0 pg 9:48 AM TOBACCO DRUMMER [place] MCHC 33.3 32.0 - 04/22/2019 [facility] 36.0 g/dL 9:48 AM TOBACCO DRUMMER [place] RDW 13.6 11.8 - 04/22/2019 [facility] [place] 15.6 % 9:48 AM TOBACCO DRUMMER [place] Lymphocytes % 18.8 18.0 - 04/22/2019 [facility] [place] 45.0 % 9:48 AM TOBACCO DRUMMER [place] Mid-size Cells 8.1 3.3 - 10.1 04/22/2019 [facility] % 9:48 AM TOBACCO DRUMMER [place] Granulocytes/Urszula 73.1 45.8 - 04/22/2019 [facility] trophils 73.7 % 9:48 AM TOBACCO DRUMMER [place] Lymphocytes 1.6 0.9 - 2.9 04/22/2019 [facility] Absolute K/uL 9:48 AM TOBACCO DRUMMER [place] MIDS Absolute 0.7 0.2 - 0.8 04/22/2019 [facility] K/uL 9:48 AM TOBACCO DRUMMER [place] Granulocytes/Urszula 6.3 2.1 - 8.7 04/22/2019 [facility] trophils K/uL 9:48 AM [facility] [place] Absolute Specimen Anatomical Collection Method Collection Time Receive d Time (Source) Location / / Volume Laterality Blood 04/22/2019 9:37 AM 9 9:37 TOBACCO DRUMMER AM TOBACCO DRUMMER Laila Loco APRN, SWEATBAND PERFORATOR LAB BLOOD ORDERABLES Performing Organization Address City/State/ZIP Code Phon e Number [facility] [place] [address] [place] [address] (ABNORMAL) Comprehensive metabolic panel (04/22/2019 9:37 AM TOBACCO DRUMMER) [facility] Method Time Signature Total Protein 8.3 (H) 6.3 - 8.2 04/22/2019 [place] g/dL 1:05 PM [facility] Albumin, Serum 4.3 3.5 - 5.0 04/22/2019 [place] g/dL 1:05 PM [facility] Total Bilirubin 1.4 (H) 0.1 - 1.0 04/22/2019 [place] mg/dL 1:05 PM [facility] AST 22 8 - 48 04/22/2019 [place] U/L 1:05 PM [facility] Alkaline 135 (H) 38 - 128 04/22/2019 [place] Phosphatase U/L 1:05 PM [facility] ALT (SGPT) 20 0 - 49 04/22/2019 [place] U/L 1:05 PM [facility] Sodium 144 135 - 145 04/22/2019 [place] mEq/L 1:05 PM [facility] Potassium 5.0 3.5 - 5.1 04/22/2019 [place] mEq/L 1:05 PM [facility] Chloride 103 98 - 107 04/22/2019 [place] mEq/L 1:05 PM [facility] CO2 30 22 - 31 04/22/2019 [place] mmol/L 1:05 PM [facility] BUN 13 5 - 25 04/22/2019 [place] mg/dL 1:05 PM [facility] Creatinine 1.3 0.6 - 1.4 04/22/2019 [place] mg/dL 1:05 PM [facility] Glucose 127 (H) 70 - 100 04/22/2019 [place] mg/dL 1:05 PM [facility] Calcium, Total,S 10.3 (H) 8.4 - 04/22/2019 [place] 10.2 1:05 PM [facility] mg/dL LABORATORY Specimen Anatomical Collection Method Collection Time Receive d Time (Source) Location / / Volume Laterality Blood 04/22/2019 9:37 AM 9 TOBACCO DRUMMER 12:30 PM TOBACCO DRUMMER Laila Loco ARCHITECTURAL INTERN, SWEATBAND PERFORATOR LAB BLOOD ORDERABLES Performing Organization Address City/State/ZIP Code Phon e Number [facility] [address] [place] [address] (ABNORMAL) Lipid panel (04/22/2019 9:37 AM TOBACCO DRUMMER) athologist Signature Cholesterol 175 0 - 199 04/22/2019 [facility] mg/dL 1:05 PM [facility] Comment: Recommended by National Cholesterol Education Program (ATP III) -------- Cholesterol Ranges -------- <200 ? Desirable 200-239 ? Borderline high >=240 ? High Triglycerides 121 0 - 149 mg/dL 04/22/2019 1:05 PM [facility] Comment: -------- TRIG Ranges -------- <150 ?Normal 150-199 ? Borderline high 200-499 ? High >=500 ? Very high HDL 44 40 - 60 mg/dL 04/22/2019 1:05 PM [facility] Comment: -------- HDL Ranges -------- <40 ?Low 40-59 ?Normal >=60 ? Optimal LDL Calculated 107 (A) 0 - 99 mg/dL 04/22/2019 1:05 PM [facility] Comment: -------- LDL Ranges -------- <100 ? Optimal 100-129 ?Near optimal/above op timal 130-159 ?Borderline high 160-189 ?High >=190 ?Very high Fasting? Yes 04/22/2019 9:45 AM [facility] Specimen Anatomical Collection Method Collection Time Receive d Time (Source) Location / / Volume Laterality Blood 04/22/2019 9:37 AM 9 TOBACCO DRUMMER 12:30 PM TOBACCO DRUMMER Laila Loco APRN, CNP LAB BLOOD ORDERABLES Performing Organization Address [facility]/ZIP Code Phon e Number [facility] [address] [place] [address] PSA (04/22/2019 9:37 AM TOBACCO DRUMMER) athologist Signature Total PSA 1.3 0.0 - 7.0 04/23/2019 [facility] ng/mL 2:09 PM [facility] Comment: The results from [...] Volume Laterality Blood 04/22/2019 9:37 AM 9 TOBACCO DRUMMER 12:39 PM TOBACCO DRUMMER Laila Loco APRN, CNP LAB BLOOD ORDERABLES Performing Organization Address City/[facility]/ZIP Code Phon e Number [facility] [address] [place] [address] (ABNORMAL) Hemoglobin A1c (04/22/2019 9:37 AM TOBACCO DRUMMER) Analysis Performed At Patho logist Time Signature Hemoglobin A1C 5.9 (H) 4.0 - 5.6 04/22/2019 [place] % A1C 1:05 PM TOBACCO DRUMMER [facility] Comment: Reference Range [...] Volume Laterality Blood 04/22/2019 9:37 AM 9 TOBACCO DRUMMER 12:30 PM TOBACCO DRUMMER Laila Loco APRN, SWEATBAND PERFORATOR LAB BLOOD ORDERABLES Performing Organization Address City/State/ZIP Code Phon e Number [facility] [address] [place] [address] documented in this encounter Visit Diagnoses Diagnosis Prediabetes Other abnormal glucose Screening PSA (prostate specific antigen ) Special screening for malignant neoplasm of prostate Hyperlipidemia, unspecified hyperlipidem ia type 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
--- OUTSIDE RECORDS SUMMARY | 2022-03-12 08:26 | XMS_ITS | Encounter Summary ---
:1940 Author Organization [facility] Address [address] [place] [address] Care Team Providers Name Role Phone Laila Loco APRN, HAND PACKER/PACKAGER Primary Care Provider [phone] Reason for Visit Reason Comments Cerumen Impaction Encounter Details Date Type Department Care Team Description 10/15/2018 Office Visit [place] Laila Loco Impacted cerumen of [address] M, ED, [place] right ear (Primary [place] [address] [place]x) [address] [place] [address] Social History Tobacco Use Types Packs/Day Years [...] his right ear, as recommended by his embroidery patternmaker. The patient has had decreased hearing. No [...] documented in this encounter Care Teams Auto Brake Mechanic Relationship Specialty Start Date End Date Laila Loco APRN, CNP PCP - General 12/09/17 01/10/[address] [place] [address] documented as of this encounter
--- OUTSIDE RECORDS SUMMARY | 2022-03-12 08:26 | XMS_ITS | Encounter Summary ---
:1940 Author Organization [facility] Address [address] [place] [address] Care Team Providers Name Role Phone Laila Loco RETENTION REPRESENTATIVE, PILOT BOAT OPERATOR Primary Care Provider [phone] Encounter Details Date Type Department Care Team Description 04/26/2019 Orders Only [place] Laila Loco, Pneumonia of right [address] RETENTION REPRESENTATIVE, PILOT BOAT OPERATOR lower lobe due to [place], [place] [address] infectious organism [address] [place] [address] (HCC) (Primary Dx) [phone] Social History Tobacco Use Types Packs/Day Years [...] Primary documented in this encounter Care Teams It Manager Relationship Specialty Start Date End Date Laila Loco, RETENTION REPRESENTATIVE, PILOT BOAT OPERATOR PCP - General 12/09/17 01/10/[address] [place] [address] [place] [address] documented as of this encounter
--- OUTSIDE RECORDS SUMMARY | 2022-03-12 08:26 | XMS_ITS | Encounter Summary ---
:1940 Author Organization [facility] Address [address] [place] [address] Care Team Providers Name Role Phone Laila Loco MALL MANAGER, SHADOW GRAPH WEIGHT OPERATOR Primary Care Provider [phone] Reason for Visit Reason Onset Date Comments medication prior auth. 09/16/2018 Pantoprazole S[place] um [address]MG dr tablets Encounter Details Date Type Department Care Team Description 09/16/2018 Telephone [employer] Laila Loco, medication prior auth. [address] [place] (Pantoprazole Sodium [place], [place] [address] tablets) [phone] [place], [place] [address] Social History Tobacco Use [...] - 09/17/2019. Pharmacy is notified. PA # [id number]. Telephone Encounter - Destiny Cody MA - 09/16/2018 8:11 AM CDT Pantoprazole Sodium 40MG dr tablets BIN: [id number] PCN: [id number] GROUP: PLAN: [employer] PHONE: [phone] ID: [id number] PA completed per PENDING SALE TO [facility], sent to plan. Rizzo: [id number]. documented in this encounter Plan of Treatment Not on filedocumented as of this encounter Visit Diagnoses Not on filedocumented in this encounter Care Teams Golf Cart Repairer Relationship Specialty Start Date End Date Laila Loco APRN, SHADOW GRAPH WEIGHT OPERATOR PCP - General 12/09/17 01/10/20 100 [place] [address] documented as of this encounter
--- OUTSIDE RECORDS SUMMARY | 2022-03-12 08:26 | XMS_ITS | Encounter Summary ---
:1940 Author Organization [facility] Address [address] [place] [address] Care Team Providers Name Role Phone Laila Loco HOTEL RECREATIONAL FACILITIES MANAGER, NETWORK SECURITY OFFICER Primary Care Provider [phone] Reason for Visit Reason Onset Date Comments Information needed for referral 08/28/2018 Encounter Details Date Type Department Care Team Description 08/28/2018 Telephone [place] Laila Loco, Information needed for [address] HOTEL RECREATIONAL FACILITIES MANAGER, IRA referral [place] [address] [address] [facility] [address] [phone] [place], [place] [address] Social History Tobacco Use [...] - 08/28/2018 3:54 PM CDT Sophia with [facility] called requesting to speak with a nurse regarding the memory loss referral. She tried to speak with the Pt on the phone to verify information but between his hearing and memory loss she could not get any information. She tried utilizing Care Everywhere, but could only find info on the shoulder pain. Please call [phone] and ask for Sophia, if she is not available she will leave notes for whomever answers on what is needed. documented in this encounter Plan of Treatment Not on filedocumented as of this encounter Visit Diagnoses Not on filedocumented in this encounter Care Teams Skein Dyer Relationship Specialty Start Date End Date Laila Loco, HOTEL RECREATIONAL FACILITIES MANAGER, NETWORK SECURITY OFFICER PCP - General 12/09/17 01/10/[address] [place] [address] documented as of this encounter
--- OUTSIDE RECORDS SUMMARY | 2022-03-12 08:26 | XMS_ITS | Encounter Summary ---
:1940 Author Organization [facility] Address [address] [place] [address] Care Team Providers Name Role Phone Laila Loco ELECTRICAL ASSEMBLIES SUPERVISOR, CLOTH EXAMINER Primary Care Provider [phone] Reason for Visit Reason Comments Med Refill Encounter Details Date Type Department Care Team Description 11/23/2018 Refill [place] Laila Loco, Gastroesophageal reflux [address] ELECTRICAL ASSEMBLIES SUPERVISOR, CLOTH EXAMINER disease without [place], [place] [address] esophagitis [address] [place] [address] Social History Tobacco Use Types Packs/Day Years [...] reflux documented in this encounter Care Teams Import/Export Specialist Relationship Specialty Start Date End Date Laila Loco, ELECTRICAL ASSEMBLIES SUPERVISOR, CLOTH EXAMINER PCP - General 12/09/17 01/10/20 100 [facility] [place] [address] documented as of this encounter
--- OUTSIDE RECORDS SUMMARY | 2022-03-12 08:26 | XMS_ITS | Encounter Summary ---
:1940 Author Organization [facility] Address [address] [place] [address] Care Team Providers Name Role Phone Laila Loco STOCK RANCH SUPERVISOR, GRADES 1 6 TUTOR Primary Care Provider [phone] Encounter Details Date Type Department Care Team Description 09/15/2018 Orders Only [place] Laila Loco, [address] STOCK RANCH SUPERVISOR, GRADES 1 6 TUTOR [place] [address] [address] [facility] [address] [phone] [place], [place] [address] Social History Tobacco Use [...] on filedocumented in this encounter Care Teams Retinal Angiographer Relationship Specialty Start Date End Date Laila Loco APRN, GRADES 1 6 TUTOR PCP - General 12/09/17 01/10/20 100 [place] [place] [address] documented as of this encounter
--- OUTSIDE RECORDS SUMMARY | 2022-03-12 08:26 | XMS_ITS | Encounter Summary ---
:1940 Author Organization [facility] Address [address] [place] [address] Care Team Providers Name Role Phone Laila Loco APRN, IRA Primary Care Provider [phone] Reason for Visit Reason Comments Annual Exam Encounter Details Date Type Department Care Team Description 04/22/2019 [place] Annual physical exam (Primar y Dx); [address] M, [place] WARD Hyperlipidemia, unspecified hyperlipidem ia type; [place] [address] 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, unspecified vessel or lesion type, unspecified whether [place] or transplanted heart; [address] [place], [place] Cough; [phone] [address] Prediabetes; [phone] Other fatigue; (Work) Medication jose toring encounter; [...] Comments Blood Pressure 148/86 04/22/2019 9:44 AM COATING MACHINE FEEDER Pulse 86 04/22/2019 8:27 AM COATING MACHINE FEEDER Temperature 35.8 ??C (96.4 ??F) 04/22/2019 8:27 AM COATING MACHINE FEEDER Respiratory Rate 16 04/22/2019 8:27 AM COATING MACHINE FEEDER Oxygen Saturation 94% 04/22/2019 8:27 AM COATING MACHINE FEEDER Inhaled Oxygen Concentration - - Weight 65 kg (143 lb 4.8 oz) 04/22/2019 8:27 AM COATING MACHINE FEEDER Height 168 cm (5' 6.14) 04/22/2019 8:27 AM COATING MACHINE FEEDER Body Mass Index 23.03 04/22/2019 8:27 AM COATING MACHINE FEEDER documented in this encounter Patient Instructions Patient InstructionsChrismanuel Loco APRN, CNP - 04/22/2019 8:40 AM COATING MACHINE FEEDER Will call with the lab results and official radiology report of the chest xray Could consider the Shing[facility], pharmacy setting ING MACHINE FEEDER documented in this encounter Progress Notes Laila Loco APRN, CNP - 04/22/2019 8:40 AM CST Well Adult - Estab Subjective Patient ID: Obey Vines is a 79 y.o. male presenting for the following concerns. Chief Complaint Patient presents with ??? Annual Exam HPI: The patient is a pleasant 79-year-old right hand dominant male [facility]. The [...] events. 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 [...] file Gets together: Not on file Attends faith service: Not on file Active member of [...] unspecified vessel or lesion type, unspecified whether [place] or transplanted heart - Comprehensive metabolic panel; [...] in 2 weeks. Laila Loco APRN, IRA ING MACHINE FEEDER documented in this encounter Plan of Treatment Not on filedocumented as of this encounter Procedures Procedure Name Priority Date/Time Associated Diagnosis Comme nts XR CHEST 2 VIEWS Routine 04/22/2019 9:46 AM Cough Resul ts for this COATING MACHINE FEEDER procedure are i n the results section. documented in this encounter Results X-ray Chest 2 Views (04/22/2019 9:46 AM COATING MACHINE FEEDER) Anatomical Region Laterality Modality Body Radiographic Imaging Specimen (Source) Anatomical Collection Method Collection Time Re ceived Time Location / / Volume Laterality 04/22/2019 9:46 AM COATING MACHINE FEEDER Impressions 04/22/2019 9:54 AM COATING MACHINE FEEDER IMPRESSION: New peripheral right anterior basal lowe r lobe pneumonia Narrative 04/22/2019 9:54 AM COATING MACHINE FEEDER INDICATION: cough, crackles in the left lower [...] PROCEDURES (ABNORMAL) Hemoglobin A1c (04/22/2019 9:37 AM COATING MACHINE FEEDER) Analysis Performed At Patho logist Time Signature Hemoglobin A1C 5.9 (H) 4.0 - 5.6 04/22/2019 [place] % A1C 1:05 PM [facility] Comment: Reference [...] Volume Laterality Blood 04/22/2019 9:37 AM 9 COATING MACHINE FEEDER 12:30 PM COATING MACHINE FEEDER Laila Loco APRN, IRA LAB BLOOD ORDERABLES Performing Organization Address City/State/ZIP Code Phon e Number [facility] [address] [place] [address] PSA (04/22/2019 9:37 AM COATING MACHINE FEEDER) athologist Signature Total PSA 1.3 0.0 - 7.0 04/23/2019 [facility] ng/mL 2:09 PM COATING MACHINE FEEDER CENTER [facility] Comment: The results from this [...] Volume Laterality Blood 04/22/2019 9:37 AM 9 COATING MACHINE FEEDER 12:39 PM COATING MACHINE FEEDER Laila Loco APRN, CNP LAB BLOOD ORDERABLES Performing Organization Address City/State/ZIP Code Phon e Number [facility] [address] [place] [address] (ABNORMAL) Lipid panel (04/22/2019 9:37 AM COATING MACHINE FEEDER) athologist Signature Cholesterol 175 0 - 199 04/22/2019 [facility] mg/dL 1:05 PM [facility] Comment: Recommended by National Cholesterol Education Program (ATP III) -------- Cholesterol Ranges -------- <200 ? Desirable 200-239 ? Borderline high >=240 ? High Triglycerides 121 0 - 149 mg/dL 04/22/2019 1:05 PM [facility] Comment: -------- TRIG Ranges -------- <150 ?Normal 150-199 ? Borderline high 200-499 ? High >=500 ? Very high HDL 44 40 - 60 mg/dL 04/22/2019 1:05 PM [facility] Comment: -------- HDL Ranges -------- <40 ?Low 40-59 ?Normal >=60 ? Optimal LDL Calculated 107 (A) 0 - 99 mg/dL 04/22/2019 1:05 PM [facility] Comment: -------- LDL Ranges -------- <100 ? Optimal 100-129 ?Near optimal/above op timal 130-159 ?Borderline high 160-189 ?High >=190 ?Very high Fasting? Yes 04/22/2019 9:45 AM [facility] Specimen Anatomical Collection Method Collection Time Receive d Time (Source) Location / / Volume Laterality Blood 04/22/2019 9:37 AM 9 COATING MACHINE FEEDER 12:30 PM COATING MACHINE FEEDER Laila Loco APRN, RESERVATIONS SALES SUPERVISOR LAB BLOOD ORDERABLES Performing Organization Address City/State/ZIP Code Phon e Number [facility] [address] [place] [address] (ABNORMAL) Comprehensive metabolic panel (04/22/2019 9:37 AM COATING MACHINE FEEDER) [facility] gist Method Time Signature Total Protein 8.3 (H) 6.3 - 8.2 04/22/2019 [place] g/dL 1:05 PM [facility] Albumin, Serum 4.3 3.5 - 5.0 04/22/2019 [place] g/dL 1:05 PM [facility] Total Bilirubin 1.4 (H) 0.1 - 1.0 04/22/2019 [place] mg/dL 1:05 PM [facility] AST 22 8 - 48 04/22/2019 [place] U/L 1:05 PM [facility] Alkaline 135 (H) 38 - 128 04/22/2019 [place] Phosphatase U/L 1:05 PM [facility] ALT (SGPT) 20 0 - 49 04/22/2019 [place] U/L 1:05 PM [facility] Sodium 144 135 - 145 04/22/2019 [place] mEq/L 1:05 PM [facility] Potassium 5.0 3.5 - 5.1 04/22/2019 [place] mEq/L 1:05 PM [facility] Chloride 103 98 - 107 04/22/2019 [place] mEq/L 1:05 PM [facility] CO2 30 22 - 31 04/22/2019 [place] mmol/L 1:05 PM [facility] BUN 13 5 - 25 04/22/2019 [place] mg/dL 1:05 PM [facility] Creatinine 1.3 0.6 - 1.4 04/22/2019 [place] mg/dL 1:05 PM [facility] Glucose 127 (H) 70 - 100 04/22/2019 [place] mg/dL 1:05 PM [facility] Calcium, Total,S 10.3 (H) 8.4 - 04/22/2019 [place] 10.2 1:05 PM [facility] mg/dL LABORATORY Specimen Anatomical Collection Method Collection Time Receive d Time (Source) Location / / Volume Laterality Blood 04/22/2019 9:37 AM 9 COATING MACHINE FEEDER 12:30 PM COATING MACHINE FEEDER Laila Loco APRN, RESERVATIONS SALES SUPERVISOR LAB BLOOD ORDERABLES Performing Organization Address City/State/ZIP Code Phon e Number [facility] [address] [place] [phone] CBC Branch Off w/Diff (04/22/2019 9:37 AM COATING MACHINE FEEDER) P athologist Signature WBC 8.6 3.5 - 10.5 04/22/2019 [facility] K/uL 9:48 AM COATING MACHINE FEEDER [place] RBC 4.94 4.30 - 04/22/2019 [facility] 5.70 M/uL 9:48 AM COATING MACHINE FEEDER [place] Hemoglobin 15.1 13.5 - 04/22/2019 [facility] 17.5 g/dL 9:48 AM COATING MACHINE FEEDER [place] Hematocrit 45.4 38.0 - 04/22/2019 [facility] 50.0 % 9:48 AM COATING MACHINE FEEDER [place] Platelets 279 150 - 450 04/22/2019 [facility] K/uL 9:48 AM COATING MACHINE FEEDER [place] MCV 91.9 81.2 - 04/22/2019 [facility] 95.1 fL 9:48 AM COATING MACHINE FEEDER [place] MCH 30.6 26.0 - 04/22/2019 [facility] 32.0 pg 9:48 AM COATING MACHINE FEEDER [place] MCHC 33.3 32.0 - 04/22/2019 [facility] 36.0 g/dL 9:48 AM COATING MACHINE FEEDER [place] RDW 13.6 11.8 - 04/22/2019 [facility] [place] 15.6 % 9:48 AM COATING MACHINE FEEDER [place] Lymphocytes % 18.8 18.0 - 04/22/2019 [facility] [place] 45.0 % 9:48 AM COATING MACHINE FEEDER [place] Mid-size Cells 8.1 3.3 - 10.1 04/22/2019 [facility] [place] % 9:48 AM COATING MACHINE FEEDER [place] Granulocytes/Urszula 73.1 45.8 - 04/22/2019 [facility] [place] trophils 73.7 % 9:48 AM COATING MACHINE FEEDER [place] Lymphocytes 1.6 0.9 - 2.9 04/22/2019 [facility] [place] Absolute K/uL 9:48 AM COATING MACHINE FEEDER [place] MIDS Absolute 0.7 0.2 - 0.8 04/22/2019 [facility] [place] K/uL 9:48 AM COATING MACHINE FEEDER [place] Granulocytes/Urszula 6.3 2.1 - 8.7 04/22/2019 [facility] [place] trophils K/uL 9:48 AM COATING MACHINE FEEDER [place] Absolute Specimen Anatomical Collection Method Collection Time Receive d Time (Source) Location / / Volume Laterality Blood 04/22/2019 9:37 AM 9 9:37 COATING MACHINE FEEDER AM COATING MACHINE FEEDER Laila Loco APRN, RESERVATIONS SALES SUPERVISOR LAB BLOOD ORDERABLES Performing Organization Address City/State/ZIP Code Phon e Number [facility] [place] [address] [place] [address] documented in this encounter Visit Diagnoses Diagnosis Annual physical exam - Primary Routine general medical examination at a health care facility Hyperlipidemia, unspecified hyperlipidem ia type 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, unspecified vessel or lesion type, unspecified whether [place] or transplant ed heart Cough Prediabetes Other abnormal glucose Other fatigue Medication monitoring encounter Encounter for therapeutic drug monitorin g Screening PSA (prostate specific antigen ) Special screening for malignant neoplasm of prostate Screening, anemia, deficiency, iron Screening for iron deficiency anemia documented in this encounter Care Teams Die Sinker Apprentice Relationship Specialty Start Date End Date Laila Loco APRN, RESERVATIONS SALES SUPERVISOR PCP - General 12/09/17 01/10/[address] [place] [address] [place] [address] documented as of this encounter
--- OUTSIDE RECORDS SUMMARY | 2022-03-12 08:26 | XMS_ITS | Encounter Summary ---
:1940 Author Organization [facility] Address [address] [place] [address] Care Team Providers Name Role Phone Laila Loco ONCOLOGY ADMIN, OFFICE MACHINE INSTALLER Primary Care Provider [phone] Reason for Visit Reason Onset Date Comments Return call 04/26/2019 Encounter Details Date Type Department Care Team Description 04/26/2019 Telephone [place] Laila Loco, Return call [address] ONCOLOGY ADMIN, OFFICE MACHINE INSTALLER [place], [place] [address] [address] [facility] [address] [phone] [place], [place] [address] Social History Tobacco Use [...] Loco APRN, IRA - 04/26/2019 1:52 PM PROPOSITION PLAYER The patient was notified of the results of his chest xray. OSITION PLAYER Telephone Encounter - Aliza Renee - 04/26/2019 1:22 PM CST Patient returned call from Rajan Loco. OSITION PLAYER documented in this encounter Plan of Treatment Not on filedocumented as of this encounter Visit Diagnoses Not on filedocumented in this encounter Care Teams Flat Cutter Relationship Specialty Start Date End Date Laila Loco APRN, IRA PCP - General 12/09/17 01/10/20 100 [place] [address] documented as of this encounter
--- OUTSIDE RECORDS SUMMARY | 2022-03-12 08:26 | XMS_ITS | Encounter Summary ---
:1940 Author Organization [facility] Address [address] [place] [address] Care Team Providers Name Role Phone Laila Loco RUBBER MOLD MAKER, SHIPPER RECEIVER Primary Care Provider [phone] Encounter Details Date Type Department Care Team Description 04/26/2019 Orders Only [place] Laila Loco, Pneumonia of right [address] RUBBER MOLD MAKER, SHIPPER RECEIVER lower lobe due to [place], [place] [address] infectious organism [address] [place] [address] (HCC) (Primary Dx) [phone] Social History Tobacco Use Types Packs/Day Years [...] Primary documented in this encounter Care Teams Asset Management Analyst Relationship Specialty Start Date End Date Laila Loco, RUBBER MOLD MAKER, SHIPPER RECEIVER PCP - General 12/09/17 01/10/[address] [place] [address] [place] [address] documented as of this encounter
--- OUTSIDE RECORDS SUMMARY | 2022-03-12 08:26 | XMS_ITS | Encounter Summary ---
:1940 Author Organization [facility] Address [address] [place] [address] Care Team Providers Name Role Phone Laila Loco DEPOSIT CLERK, BRICK SHADER Primary Care Provider [phone] Reason for Visit Reason Onset Date Comments Med refills needed 09/15/2018 Encounter Details Date Type Department Care Team Description 09/15/2018 Telephone [place] Laila Loco, Med refills needed [address] DEPOSIT CLERK, IRA [place], [place] [address] [address] [facility] [address] [phone] [place], [place] [address] Social History Tobacco Use [...] throat. Pt would like these sent to [facility]. Please call Pt at [phone] to advise. documented in this encounter Plan of Treatment Not on filedocumented as of this encounter Visit Diagnoses Diagnosis Atherosclerosis of [place] coronary arter y without angina pectoris, unspecified whether [place] or transplanted heart - P rimary Gastroesophageal reflux disease without esophagitis Esophageal reflux documented in this encounter Care Teams Technology Development Intern Relationship Specialty Start Date End Date Laila Loco APRN, BRICK SHADER PCP - General 12/09/17 01/10/[address] [place] [address] documented as of this encounter
--- OUTSIDE RECORDS SUMMARY | 2022-03-12 08:26 | XMS_ITS | Encounter Summary ---
:1940 Author Organization [facility] Address [address] [place] [address] Care Team Providers Name Role Phone Laila Loco APRN, GATE MORTISER OPERATOR Primary Care Provider [phone] Reason for Visit Reason Comments Medicare Annual Wellness Visit Subsequent Encounter Details Date Type Department Care Team Description 04/22/2019 Office Visit [place] Medicare annual wellness [address] visit, subsequent [place], [place] [address] Social History Tobacco Use [...] Comments Blood Pressure 134/68 04/22/2019 8:29 AM DIESEL SERVICE TECHNICIAN Pulse 86 04/22/2019 8:29 AM DIESEL SERVICE TECHNICIAN Temperature 35.8 ??C (96.4 ??F) 04/22/2019 8:29 AM DIESEL SERVICE TECHNICIAN Respiratory Rate 16 04/22/2019 8:29 AM DIESEL SERVICE TECHNICIAN Oxygen Saturation 94% 04/22/2019 8:29 AM DIESEL SERVICE TECHNICIAN Inhaled Oxygen Concentration - - Weight 65 kg (143 lb 4.8 oz) 04/22/2019 8:29 AM DIESEL SERVICE TECHNICIAN Height 168 cm (5' 6.14) 04/22/2019 8:29 AM DIESEL SERVICE TECHNICIAN Body Mass Index 23.03 04/22/2019 8:29 AM DIESEL SERVICE TECHNICIAN documented in this encounter Progress Notes Guillermina [place] LPN - 04/22/2019 8:40 AM CST Annual Wellness Visit CARE TEAM / RESOURCES: Patient Care Team: Laila Loco APRN, GATE MORTISER OPERATOR as PCP - General Eye Care: Dr. Miranda [place] Dental Care: NONE Jose Luis (quit) Pharmacy: [facility] - [address] [address] Other: Visit Vitals BP 134/68 (BP Location: [...] pathological fracture ??? Atherosclerotic heart disease of [place] coronary artery without angina pectoris ??? Disturbance [...] on phone: None Gets together: None Attends mormonism service: None Active member of club or [...] transfusion before 1991. ?? Those born between 7912-8682. Glaucoma: Medicare Part B (Medical Insurance) covers [...] of one pack a dayfor 30 years). EL SERVICE TECHNICIAN documented in this encounter Plan of Treatment Not on filedocumented as of this encounter Visit Diagnoses Diagnosis Medicare annual wellness visit, subseque nt documented in this encounter Care Teams Sourcing Consultant Relationship Specialty Start Date End Date Laila Loco APRN, GATE MORTISER OPERATOR PCP - General 12/09/17 01/10/20 100 [facility] [place] [address] documented as of this encounter
--- OUTSIDE RECORDS SUMMARY | 2022-03-12 08:26 | XMS_ITS | Encounter Summary ---
:1940 Author Organization [facility] Address [address] [place] [address] Care Team Providers Name Role Phone Laila Loco APRN, [place] Primary Care Provider Reason for Visit Reason Comments Cough Encounter Details Date Type Department Care Team Description 06/28/2019 Office Visit [place] Cough (Primary Dx); [address] M, [place] Irregular heart rate [place] [address] [facility] [address] [place] [address] Social History Tobacco Use Types Packs/Day Years [...] Comments Blood Pressure 130/60 06/28/2019 10:33 AM LIQUOR RECTIFIER Pulse 66 06/28/2019 10:33 AM LIQUOR RECTIFIER Temperature 36.4 ??C (97.6 ??F) 06/28/2019 10:33 AM LIQUOR RECTIFIER Respiratory Rate 16 06/28/2019 10:33 AM LIQUOR RECTIFIER Oxygen Saturation 97% 06/28/2019 10:33 AM LIQUOR RECTIFIER Inhaled Oxygen Concentration - - Weight 65.5 kg (144 lb 8 oz) 06/28/2019 10:33 AM LIQUOR RECTIFIER Height 167.6 cm (5' 6) 06/28/2019 10:33 AM LIQUOR RECTIFIER Body Mass Index 23.32 06/28/2019 10:33 AM LIQUOR RECTIFIER documented in this encounter Patient Instructions Patient InstructionsChsulema Loco APRN, CNP - 06/28/2019 10:20 AM LIQUOR RECTIFIER [employer] OR RECTIFIER documented in this encounter Progress Notes Laila [...] his symptoms started before he traveled to [facility] 5 days ago, returning on [...] plan of care. Laila Loco APRN, IRA OR RECTIFIER documented in this encounter Plan of Treatment Not on filedocumented as of this encounter Procedures Procedure Name Priority Date/Time Associated Diagnosis Comme nts XR CHEST 2 VIEWS Routine 06/28/2019 11:30 AM Cough Resu lts for this LIQUOR RECTIFIER procedure are i n the results section. ECG 12-LEAD Routine 06/28/2019 12:00 AM Irregular heart rate Results for this LIQUOR RECTIFIER procedure are i n the results section. documented in this encounter Results X-ray Chest 2 Views (06/28/2019 11:30 AM LIQUOR RECTIFIER) Anatomical Region Laterality Modality Body Radiographic Imaging Specimen (Source) Anatomical Collection Method Collection Time Re ceived Time Location / / Volume Laterality 06/28/2019 11:30 AM LIQUOR RECTIFIER Impressions 06/28/2019 11:39 AM LIQUOR RECTIFIER IMPRESSION: Stable peripheral right basal interstiti al prominence which is likely postinflammatory fibrotic stranding. ??R esidual pneumonia is not totally excluded. Narrative 06/28/2019 11:39 AM LIQUOR RECTIFIER INDICATION: cough COMPARISON: 04/22/2019 FINDINGS: CXR: Min [...] pneumonia is not totally excluded. Laila Loco AMMONIA NITRATE OPERATOR, CHIEF TRANSFER AND PUMPHOUSE OPERATOR IMG XR PROCEDURES (ABNORMAL) CBC Branch Off w/Diff (06/28/2019 11:22 AM LIQUOR RECTIFIER) [facility] Method Time Signature WBC 7.1 3.5 - 10.5 06/28/2019 [facility] K/uL 1:04 PM LIQUOR RECTIFIER [place] RBC 4.87 4.30 - 06/28/2019 [facility] 5.70 M/uL 1:04 PM LIQUOR RECTIFIER [place] Hemoglobin 14.6 13.5 - 06/28/2019 [facility] 17.5 g/dL 1:04 PM LIQUOR RECTIFIER [place] Hematocrit 44.6 38.0 - 06/28/2019 [facility] 50.0 % 1:04 PM LIQUOR RECTIFIER [place] Platelets 221 150 - 450 06/28/2019 [facility] K/uL 1:04 PM LIQUOR RECTIFIER [place] MCV 91.6 81.2 - 06/28/2019 [facility] 95.1 fL 1:04 PM LIQUOR RECTIFIER [place] MCH 30.0 26.0 - 06/28/2019 [facility] 32.0 pg 1:04 PM LIQUOR RECTIFIER [place] MCHC 32.7 32.0 - 06/28/2019 [facility] 36.0 g/dL 1:04 PM LIQUOR RECTIFIER [place] RDW 14.5 11.8 - 06/28/2019 [facility] 15.6 % 1:04 PM LIQUOR RECTIFIER [place] Lymphocytes % 18.9 18.0 - 06/28/2019 [facility] 45.0 % 1:04 PM LIQUOR RECTIFIER [place] Mid-size Cells 5.6 3.3 - 10.1 06/28/2019 [facility] % 1:04 PM LIQUOR RECTIFIER [place] Granulocytes/Urszula 75.5 (H) 45.8 - 06/28/2019 [facility] trophils 73.7 % 1:04 PM LIQUOR RECTIFIER [place] Lymphocytes 1.3 0.9 - 2.9 06/28/2019 [facility] Absolute K/uL 1:04 PM LIQUOR RECTIFIER [place] MIDS Absolute 0.4 0.2 - 0.8 06/28/2019 [facility] K/uL 1:04 PM LIQUOR RECTIFIER [place] Granulocytes/Urszula 5.4 2.1 - 8.7 06/28/2019 [facility] trophils K/uL 1:04 PM LIQUOR RECTIFIER [place] Absolute Specimen Anatomical Collection Method Collection Time Receive d Time (Source) Location / / Volume Laterality Blood 06/28/2019 11:22 06/28/2019 AM LIQUOR RECTIFIER 11:22 AM LIQUOR RECTIFIER Laila Loco APRN, CNP LAB BLOOD ORDERABLES Performing Organization Address City/State/ZIP Code Phon e Number [facility] [place] [address] [place] [address] ECG 12 lead (06/28/2019 12:00 AM LIQUOR RECTIFIER) Narrative 06/28/2019 12:00 AM LIQUOR RECTIFIER This result has an attachment that is no t available. ECG for irregular heart rhythm performed , patient tolerated procedure well Laila Loco APRN, CNP ECG ORDERABLES documented in this encounter Visit Diagnoses Diagnosis Cough - Primary Irregular heart rate documented in this encounter Care Teams Senior Pricing Analyst Relationship Specialty Start Date End Date Laila Loco APRN, CNP PCP - General 12/09/17 01/10/20 100 [place] [address] documented as of this encounter
--- OUTSIDE RECORDS SUMMARY | 2022-03-12 08:26 | XMS_ITS | Encounter Summary ---
:1940 Author Organization [facility] Address [address] [place] [address] Care Team Providers Name Role Phone Laila Loco APRN, CNP Primary Care Provider [phone] Reason for Referral Consultation (Routine) - Closed Specialty Diagnoses / Procedures Referred By Contact Refer red To Contact Neurology Diagnoses Memory deficit Laila Loco, [place] - Referrals [place] [address] [facility] [address] [place] [address] [place] [address] Fax: Referral ID Status Reason Start Date Expiration Date Visits Requ ested Visits Authorized [id number] Closed 08/28/2018 08/29/2019 1 1 Reason for Visit Reason Comments Follow-up Encounter Details Date Type Department Care Team Description 08/28/2018 Office Visit Laila Wilson Follow up (Primary Dx); [address] M, [place] Memory deficit [place], [place] [address] [facility] [address] [place] [address] Social History Tobacco Use Types Packs/Day Years [...] week ago. The patient was admitted to [place] on 08/15/2018, after he had an acute [...] left shoulder yesterday, by Dr. [place] in [place], and he feels there has been some [...] ogical evaluation for his memory deficit at [facility] in [place]. The patient agrees and understands this plan of care. Laila Loco APRN, CNP documented in this encounter Plan of Treatment Scheduled Referrals Name Type Priority Associated Order Schedule Diagnoses Ambulatory External Outpatient Referral Routine Memory deficit Ordered: Referral 08/28/2018 documented as of this encounter Visit Diagnoses Diagnosis Follow up - Primary Memory deficit Memory loss documented in this encounter Care Teams Manager Msw Relationship Specialty Start Date End Date Laila Loco APRN, CNP PCP - General 12/09/17 01/10/20 100 [place] [address] documented as of this encounter
--- OUTSIDE RECORDS SUMMARY | 2022-03-12 08:27 | XMS_ITS | Encounter Summary ---
:1940 Author Organization [facility] Address [address] [place] [address] Care Team Providers Name Role Phone Laila Loco APRN, CNP Primary Care Provider [phone] Reason for Referral Consultation (Routine) - Closed Specialty Diagnoses / Procedures Referred By Contact Refer red To Contact Orthopedic Surgery Diagnoses Complete rotator cuff tear of left shoulder Laila Loco, [facility] [place] [address] [facility] [address] [place] [address] Fax: Referral ID Status Reason Start Date Expiration Date Visits Requ ested Visits Authorized [id number] Closed 08/19/2018 08/20/2019 1 1 Scheduling Instructions The patient was started on Plavix for a non-STEMI RI and cannot proceed with any surgical interventions as he is on Plavi x times 1 year inquiring about the possibility of a steroid injection. 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 The patientreports he wore a neck brace for a period of 3-4 months following this incident. No recent neck injury. The patient reports his neck pain is likely worsening, and notices his neck pain when he is driving, as he has to frequently reposition himself. The patient would like to be referred to Dr. Dodson at [facility] in [place], for orthopedic consultation if recommended, as he [...] elevated troponin. The patient was transferred from [facility] to [facility], [place], with an acute coronary non-ST elevation myocardial infraction. The patient was admitted to [facility] on 08/15/2018, and discharged on 08/16/2018, after [...] things. The patient acknowledges before his recent RI, he forgot to take his baby aspirin [...] DIAGNOSTICS: Reviewed the patient's MRI results from [facility] on 08/13/2018: Cervical neck MRI: 1. 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 Will proceed with a bilateral carotid ultrasound, call with the results, and likely recommend referral to neurology to evaluated the memory concerns. The patient can take Tylenol for pain, avoiding the NSAID's. The patient will take calcium with Vitamin D twice daily. The patient and his both agree and understand this plan of care. 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
--- OUTSIDE RECORDS SUMMARY | 2022-03-12 08:27 | XMS_ITS | Encounter Summary ---
:1940 Author Organization [facility] Address [address] [place] [address] Care Team Providers Name Role Phone Laila Loco BOTANY PROFESSOR, UNDERGROUND CONDUIT INSTALLER Primary Care Provider [phone] Reason for Visit Reason Onset Date Comments Med Refill 04/06/2018 Encounter Details Date Type Department Care Team Description 04/06/2018 Refill [place], Hyperlipidemia, [address] BOTANY PROFESSOR, [place] unspecified [place] [address] [address] [facility] [address] hyperlipidemia type [phone] [place], [place] [address] (Primary Dx) Social History [...] Loco APRN, CNP - 04/06/2018 12:38 PM ONLINE COMMUNICATIONS SPECIALIST The prescription was written as requested. NE COMMUNICATIONS SPECIALIST Telephone Encounter - Guillermina Bradford LPN - 04/06/2018 11:34 AM CST Ezetimibe, pending Pharmacy: [facility] NE COMMUNICATIONS SPECIALIST documented in this encounter Plan of Treatment Not on filedocumented as of this encounter Visit Diagnoses Diagnosis Hyperlipidemia, unspecified hyperlipidem ia type - Primary documented in this encounter Care Teams Automobile Assembler Relationship Specialty Start Date End Date Laila Loco APRN, CNP PCP - General 12/09/17 01/10/20 100 [facility] [place] [address] documented as of this encounter
--- OUTSIDE RECORDS SUMMARY | 2022-03-12 08:27 | XMS_ITS | Encounter Summary ---
:1940 Author Organization [facility] Address [address] [place] [address] Care Team Providers Name Role Phone Laila Loco BILLET BED OPERATOR, PURIFYING PLANT OPERATOR Primary Care Provider [phone] Reason for Visit Reason Onset Date Comments MRI 08/10/2018 Encounter Details Date Type Department Care Team Description 08/10/2018 Telephone [place] Laila Loco, MRI [address] BILLET BED OPERATOR, PURIFYING PLANT OPERATOR [place] [address] [address] [facility] [address] [phone] [place], [place] [address] Social History Tobacco Use [...] CDT Neck and shoulder MRI being done [facility]. The patient is requesting pain meds as they told him these being done at the same time and it hurts for him to lay. Patient uses [facility]. documented in this encounter Plan of Treatment Not on filedocumented as of this encounter Visit Diagnoses Not on filedocumented in this encounter Care Teams Retail Warehouse Associate Relationship Specialty Start Date End Date Laila Loco APRN, PURIFYING PLANT OPERATOR PCP - General 12/09/17 01/10/[address] [place] [address] [place] [address] documented as of this encounter
--- OUTSIDE RECORDS SUMMARY | 2022-03-12 08:27 | XMS_ITS | Encounter Summary ---
:1940 Author Organization [facility] Address [address] [place] [address] Care Team Providers Name Role Phone Laila Loco LANDSCAPER, FENCE ERECTOR SUPERVISOR Primary Care Provider [phone] Encounter Details Date Type Department Care Team Description 08/11/2018 Telephone [place] Laila Loco, [address] LANDSCAPER, [place] [address] [address] [facility] [address] [phone] [place], [place] [address] Social History Tobacco Use [...] on filedocumented in this encounter Care Teams Panelboard Tank Pumper Relationship Specialty Start Date End Date Laila Loco, LANDSCAPER, FENCE ERECTOR SUPERVISOR PCP - General 12/09/17 01/10/20 [address] [facility] [place] [address] documented as of this encounter
--- OUTSIDE RECORDS SUMMARY | 2022-03-12 08:27 | XMS_ITS | Encounter Summary ---
:1940 Author Organization [facility] Address [address] [place] [address] Care Team Providers Name Role Phone Laila Loco THIN FILM TECHNICIAN, TEAM MEMBER Primary Care Provider [phone] Encounter Details Date Type Department Care Team Description 08/11/2018 Orders Only [place] Laila Loco, Cervical pain (neck) [address] ED, [place] (Primary Dx) [place], [place] [address] [facility] [address] [place] [address] Social History Tobacco Use Types Packs/Day Years [...] Cervicalgia documented in this encounter Care Teams Book Sewer Relationship Specialty Start Date End Date Laila Loco, THIN FILM TECHNICIAN, TEAM MEMBER PCP - General 12/09/17 01/10/20 [address] [facility] [place] [address] documented as of this encounter
--- OUTSIDE RECORDS SUMMARY | 2022-03-12 08:27 | XMS_ITS | Encounter Summary ---
:1940 Author Organization [facility] Address [address] [place] [address] Care Team Providers Name Role Phone Laila Loco ACCESS SPEC, LABORER PIPELINES Primary Care Provider [phone] Reason for Visit Reason Onset Date Comments referral 07/31/2018 MRI shoulder, C spin e Encounter Details Date Type Department Care Team Description 07/31/2018 Telephone [place] Laila Loco, referral (MRI [address] ACCESS SPEC, LABORER PIPELINES shoulder, C spine) [place], [place] [address] [address] [facility] [address] [phone] [employer], [place] [address] Social History Tobacco Use [...] orders for Shoulder and C spine to [facility]. documented in this encounter Plan of Treatment Not on filedocumented as of this encounter Visit Diagnoses Not on filedocumented in this encounter Care Teams Branch Service Leader Relationship Specialty Start Date End Date Laila Loco APRN, LABORER PIPELINES PCP - General 12/09/17 01/10/20 [address] [place] [address] documented as of this encounter
--- OUTSIDE RECORDS SUMMARY | 2022-03-12 08:27 | XMS_ITS | Encounter Summary ---
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, unspecified vessel or lesion type, unspecified whether [place] or transplanted heart (Primary Dx); [address] MED CNP Hyperlipidemia, unspecified hyperlipidem ia type; [place], [place] [address] Gastroesophageal reflux disease without esophagitis; [address] [place], [place] Impacted cerumen of left ear ; [phone] [address] Screening for diabetes mellitus; [phone] Screening, anem ia, deficiency, iron; (Work) Screening [...] Comments Blood Pressure 132/70 06/05/2018 8:02 AM [facility] Pulse 74 06/05/2018 8:02 AM [facility] [employer] [facility] [employer] Temperature 36.8 ??C (98.2 ??F) 06/05/2018 8:02 AM [facility] [facility] Respiratory Rate 18 06/05/2018 8:02 AM [facility] [facility] Oxygen Saturation 95% 06/05/2018 8:02 AM [facility] [facility] Inhaled Oxygen Concentration - - Weight 68.9 kg (151 lb 14.4 oz) 06/05/2018 8:02 AM [facility] [facility] Height 167.6 cm (5' 6) 06/05/2018 8:02 AM [facility] [facility] Body Mass Index 24.52 06/05/2018 8:02 AM [facility] [facility] documented in this encounter Patient Instructions Patient InstructionsChrismanuel Loco APRN, CNP - 06/05/2018 8:00 AM [facility] [employer] [facility] Prolia for osteoporosis Will call with the lab results Calcium 600 mg with Vitamin D tablets, twice daily Shingrix, check with her insurance [employer] documented in this encounter Progress Notes Laila [...] unspecified vessel or lesion type, unspecified whether [place] or transplanted heart (Primary) - metoprolol tartrate [...] plan of care. Laila Loco APRN, CNP [employer] Rosalee Simmons MA - 06/05/2018 8:00 AM [...] rest. Dizziness passed and continued with irrigation. [employer] documented in this encounter Plan of Treatment Not on filedocumented as of this encounter Procedures Procedure Name Priority Date/Time Associated Diagnosis Comme nts EAR CERUMEN REMOVAL Routine 06/05/2018 8:00 AM Impacted cerume n of Results for this [facility] left ear procedure are i n the results section. documented in this encounter Results (ABNORMAL) Hemoglobin A1c (06/05/2018 8:53 AM [facility] [facility]) Analysis Performed At Patho logist Time Signature Hemoglobin A1C 5.8 (H) 4.0 - 5.6 06/05/2018 [place] % A1C 2:32 PM [facility] Comment: Reference Range 4.0-5.6% [...] (Blood, 06/05/2018 8:53 AM 06/05/19 19 Venous) [facility] [employer] [facility] [employer] 12:43 PM [facility] [employer] [facility] Laila Loco APRN, BUILDING RIGGER LAB BLOOD ORDERABLES Performing Organization Address City/State/ZIP Code Phon e Number [facility] [address] [place] [address] PSA (06/05/2018 8:53 AM [facility] [employer] [facility] [facility]) athologist Signature Total PSA 1.1 0.0 - 7.0 06/05/2018 [facility] ng/mL 2:05 PM [facility] [facility] Comment: The results from this [...] (Blood, 06/05/2018 8:53 AM 06/05/19 19 Venous) [facility] [employer] [facility] [employer] 12:45 PM [facility] [facility] Laila Loco APRN, BUILDING RIGGER LAB BLOOD ORDERABLES Performing Organization Address City/State/ZIP Code Phon e Number [facility] [address] [place] [id number] (ABNORMAL) CBC Branch Off w/Diff (06/05/2018 8:53 AM [facility] [employer] [facility]) [facility] gist Method Time Signature WBC 8.7 3.5 - 10.5 06/05/2018 [facility] K/uL 9:01 AM [facility] [facility] [place] RBC 4.74 4.30 - 06/05/2018 [facility] 5.70 M/uL 9:01 AM [facility] [facility] [place] Hemoglobin 14.5 13.5 - 06/05/2018 [facility] 17.5 g/dL 9:01 AM [facility] [facility] [place] Hematocrit 43.0 38.0 - 06/05/2018 [facility] 50.0 % 9:01 AM [facility] [facility] [place] Platelets 265 150 - 450 06/05/2018 [facility] K/uL 9:01 AM [facility] [facility] [place] MCV 90.7 81.2 - 06/05/2018 [facility] 95.1 fL 9:01 AM [facility] [place] MCH 30.6 26.0 - 06/05/2018 [facility] 32.0 pg 9:01 AM [facility] [place] MCHC 33.7 32.0 - 06/05/2018 [facility] 36.0 g/dL 9:01 AM [facility] [place] RDW 13.8 11.8 - 06/05/2018 [facility] 15.6 % 9:01 AM [facility] [place] Lymphocytes % 15.8 (L) 18.0 - 06/05/2018 [facility] 45.0 % 9:01 AM [facility] [place] Mid-size Cells 8.1 3.3 - 10.1 06/05/2018 [facility] % 9:01 AM [facility] [place] Granulocytes/Urszula 76.1 (H) 45.8 - 06/05/2018 [facility] [place] trophils 73.7 % 9:01 AM [facility] [facility] [place] Lymphocytes 1.4 0.9 - 2.9 06/05/2018 [facility] [place] Absolute K/uL 9:01 AM [facility] [place] MIDS Absolute 0.7 0.2 - 0.8 06/05/2018 [facility] [place] K/uL 9:01 AM [facility] [place] Granulocytes/Urszula 6.6 2.1 - 8.7 06/05/2018 [facility] [place] trophils K/uL 9:01 AM [facility] [place] Absolute Specimen Anatomical Collection Method Collection Time Receive d Time (Source) Location / / Volume Laterality Blood (Blood, 06/05/2018 8:53 AM 06/05/19 19 9:00 Venous) [facility] AM [facility] Laila Loco APRN, BUILDING RIGGER LAB BLOOD ORDERABLES Performing Organization Address City/State/ZIP Code Phon e Number [facility] [place] [address] [place] [address] (ABNORMAL) Basic metabolic panel (06/05/2018 8:53 AM [facility] [facility]) P athologist Signature Sodium 143 135 - 145 06/05/2018 [facility] [place] mmol/L 9:07 AM [facility] [place] Potassium 3.2 (L) 3.5 - 5.1 06/05/2018 [facility] [place] mmol/L 9:07 AM [facility] [place] Comment: . Chloride 101 98 - 107 mmol/L 06/05/2018 9:07 AM [facility] [place] Comment: . CO2 32 (H) 22 - 31 mmol/L 06/05/2018 9:07 AM [facility] [place] Comment: . Creatinine 1.2 0.6 - 1.4 mg/dL 06/05/2018 9:07 AM [facility] [place] Comment: . BUN 14 5 - 25 mg/dL 06/05/2018 9:07 AM [facility] [place] Comment: . Glucose 107 (H) 70 - 100 mg/dL 06/05/2018 9:07 AM [facility] [place] Calcium, Total,S 9.8 8.4 - 10.2 mg/dL 06/05/2018 9:07 AM [facility] [place] Comment: . Fasting? Yes 06/05/2018 9:00 AM [facility] [place] NON [place] Specimen Anatomical Collection Method Collection Time Receive d Time (Source) Location / / Volume Laterality Blood (Blood, 06/05/2018 8:53 AM 06/05/19 19 9:00 Venous) [facility] [employer] [facility] AM [facility] [employer] [facility] Laila Loco APRN, CNP LAB BLOOD ORDERABLES Performing Organization Address City/State/ZIP Code Phon e Number [facility] [place] [address] [place] [address] (ABNORMAL) Lipid panel (06/05/2018 8:53 AM [facility]) athologist Signature Cholesterol 171 0 - 199 06/05/2018 [facility] mg/dL 1:35 PM [facility] Comment: Recommended by National Cholesterol Education Program (ATP III) -------- Cholesterol Ranges -------- <200 ? Desirable 200-239 ? Borderline high >=240 ? High Triglycerides 142 0 - 149 mg/dL 06/05/2018 1:35 PM [facility] Comment: -------- TRIG Ranges -------- <150 ?Normal 150-199 ? Borderline high 200-499 ? High >=500 ? Very high HDL 37 (A) 40 - 60 mg/dL 06/05/2018 1:35 PM [facility] Comment: -------- HDL Ranges -------- <40 ?Low 40-59 ?Normal >=60 ? Optimal LDL Calculated 106 (A) 0 - 99 mg/dL 06/05/2018 1:35 PM [facility] Comment: -------- LDL Ranges -------- <100 ? Optimal 100-129 ?Near optimal/above op timal 130-159 ?Borderline high 160-189 ?High >=190 ?Very high Specimen Anatomical Collection Method Collection Time Receive d Time (Source) Location / / Volume Laterality Blood (Blood, 06/05/2018 8:53 AM 06/05/19 19 Venous) [facility] 12:43 PM [facility] Laila Loco APRN, CNP LAB BLOOD ORDERABLES Performing Organization Address City/State/ZIP Code Phon e Number [facility] [address] [place] [address] Ear cerumen removal (06/05/2018 8:00 AM [facility] [facility]) Narrative Laila Loco APRN, CNP - 019 8:00 AM [facility] [facility] Rosalee Simmons MA ? 06/12/2018 ??6:53 AM [...] unspecified vessel or lesion type, unspecified whether [place] or transplant ed heart - Primary Hyperlipidemia, unspecified hyperlipidem ia type Gastroesophageal reflux disease without esophagitis Esophageal reflux Impacted cerumen of left ear Impacted cerumen Screening for diabetes mellitus Screening, anemia, deficiency, iron Screening for iron deficiency anemia Screening for prostate cancer Special screening for malignant neoplasm of prostate documented in this encounter Care Teams Rn Infusion Relationship Specialty Start Date End Date Laila Loco APRN, CNP PCP - General 12/09/17 01/10/20 [address] [place] [address] documented as of this encounter
--- OUTSIDE RECORDS SUMMARY | 2022-03-12 08:27 | XMS_ITS | Encounter Summary ---
:1940 Author Organization [facility] Address [address] [place] [address] Care Team Providers Name Role Phone Laila Loco RUBBER COVERING MACHINE OPERATOR, CD STORAGE AND MATERIALS MAKE UP HELPER Primary Care Provider [phone] Encounter Details Date Type Department Care Team Description 06/05/2018 Orders Only [place] Laila Loco, Hypokalemia (Primary [address] RUBBER COVERING MACHINE OPERATOR, CD STORAGE AND MATERIALS MAKE UP HELPER Dx) [place], [place] [address] [facility] [address] [place] [address] Social History Tobacco Use Types Packs/Day Years [...] Hypopotassemia documented in this encounter Care Teams Applied Anthropologist Relationship Specialty Start Date End Date Laila Loco, RUBBER COVERING MACHINE OPERATOR, CD STORAGE AND MATERIALS MAKE UP HELPER PCP - General 12/09/17 01/10/20 100 [facility] [place] [address] documented as of this encounter
--- OUTSIDE RECORDS SUMMARY | 2022-03-12 08:27 | XMS_ITS | Encounter Summary ---
:1940 Author Organization [facility] Address [address] [place] [address] Care Team Providers Name Role Phone Laila Loco APRN, KAIAKO KURA [place] MAORI Primary Care Provider [phone] Encounter Details Date Type Department Care Team Description 06/05/2018 Lab [place] Screening for diabetes melli tus; [address] Screening for prostate cance r; [place], [place] [address] Screening, anemia, deficienc y, iron; [phone] Hyperlipidemia, unspecified hyperlipidemia type Social History Tobacco [...] for diabetes Results for this FILTRATION RATE DOPE WORKER mellitus procedure ar e in the results section. CBC BRANCH OFFICE Routine 06/05/2018 8:53 AM Screening, anemia , Results for this W/DIFF DOPE WORKER deficiency, iron procedure a re in the results section. PSA Routine 06/05/2018 8:53 AM Screening for prostate Results for this DOPE WORKER cancer procedure are i n the results section. HEMOGLOBIN A1C Routine 06/05/2018 8:53 AM Screening for diabet es Results for this DOPE WORKER mellitus procedure are i n the results section. LIPID PANEL Routine 06/05/2018 8:53 AM Hyperlipidemia, Result s for this DOPE WORKER unspecified procedure are i n hyperlipidemia type the resu lts section. BASIC METABOLIC Routine 06/05/2018 8:53 AM Screening for diabe rachael Results for this PANEL DOPE WORKER mellitus procedure are i n the results section. documented in this encounter Results (ABNORMAL) Glomerular filtration rate (GFR) (06/05/2018 8:53 AM DOPE WORKER) athologist Signature GFR 59 (A) 06/05/2018 [facility] 9:07 AM [facility] >60 06/05/2018 [facility] [place] GFR 9:07 AM [facility] Comment: GFR calculated from serum creatinine v alue Chronic Kidney Disease less than 60 mL/m in/1.73 m2 Kidney Failure less than 15 mL/min/1.73 m2 Note: effective 09/17/06 IDMS-Traceable MDRD Study Equation used. Specimen Anatomical Collection Method Collection Time Receive d Time (Source) Location / / Volume Laterality 06/05/2018 8:53 AM 9 8:53 DOPE WORKER AM DOPE WORKER Laila Loco APRN, IRA LAB BLOOD ORDERABLES Performing Organization Address City/State/ZIP Code Phon e Number [facility] [address] [place] [address] (ABNORMAL) Lipid panel (06/05/2018 8:53 AM DOPE WORKER) athologist Signature Cholesterol 171 0 - 199 06/05/2018 [facility] mg/dL 1:35 PM [facility] Comment: Recommended by National Cholesterol Education Program (ATP III) -------- Cholesterol Ranges -------- <200 ? Desirable 200-239 ? Borderline high >=240 ? High Triglycerides 142 0 - 149 mg/dL 06/05/2018 1:35 PM [facility] Comment: -------- TRIG Ranges -------- <150 ?Normal 150-199 ? Borderline high 200-499 ? High >=500 ? Very high HDL 37 (A) 40 - 60 mg/dL 06/05/2018 1:35 PM [facility] Comment: -------- HDL Ranges -------- <40 ?Low 40-59 ?Normal >=60 ? Optimal LDL Calculated 106 (A) 0 - 99 mg/dL 06/05/2018 1:35 PM [facility] Comment: -------- LDL Ranges -------- <100 ? Optimal 100-129 ?Near optimal/above op timal 130-159 ?Borderline high 160-189 ?High >=190 ?Very high Specimen Anatomical Collection Method Collection Time Receive d Time (Source) Location / / Volume Laterality Blood (Blood, 06/05/2018 8:53 AM 06/05/19 19 Venous) DOPE WORKER 12:43 PM DOPE WORKER Laila Loco APRN, KAIAKO KURA KAUPAPA MAORI LAB BLOOD ORDERABLES Performing Organization Address City/State/ZIP Code Phon e Number [facility] [address] [place] [address] (ABNORMAL) Basic metabolic panel (06/05/2018 8:53 AM DOPE WORKER) P athologist Signature Sodium 143 135 - 145 06/05/2018 [facility] mmol/L 9:07 AM [facility] [place] Potassium 3.2 (L) 3.5 - 5.1 06/05/2018 [facility] mmol/L 9:07 AM [facility] Comment: . Chloride 101 98 - 107 mmol/L 06/05/2018 9:07 AM DOPE WORKER [facility] [place] Comment: . CO2 32 (H) 22 - 31 mmol/L 06/05/2018 9:07 AM DOPE WORKER [facility] [place] Comment: . Creatinine 1.2 0.6 - 1.4 mg/dL 06/05/2018 9:07 AM DOPE WORKER [facility] [place] Comment: . BUN 14 5 - 25 mg/dL 06/05/2018 9:07 AM [facility]ER [facility] [place] Comment: . Glucose 107 (H) 70 - 100 mg/dL 06/05/2018 9:07 AM DOPE [facility]ER [facility] [place] Calcium, Total,S 9.8 8.4 - 10.2 mg/dL 06/05/2018 9:07 AM DOPE WORKER [facility] [place] Comment: . Fasting? Yes 06/05/2018 9:00 AM DOPE WORKER [facility] CAN NON [place] Specimen Anatomical Collection Method Collection Time Receive d Time (Source) Location / / Volume Laterality Blood (Blood, 06/05/2018 8:53 AM 06/05/19 19 9:00 Venous) DOPE WORKER AM DOPE WORKER Laila Loco APRN, KAIAKO KURA [place]AUP[place] MAORI LAB BLOOD ORDERABLES Performing Organization Address City/State/ZIP Code Phon e Number [facility] [place] [address] [place] [address] (ABNORMAL) CBC Branch Off w/Diff (06/05/2018 8:53 AM DOPE WORKER) Patholo gist Method Time Signature WBC 8.7 3.5 - 10.5 06/05/2018 [facility] K/uL 9:01 AM [facility] [place] RBC 4.74 4.30 - 06/05/2018 [facility] 5.70 M/uL 9:01 AM [facility] [place] Hemoglobin 14.5 13.5 - 06/05/2018 [facility] 17.5 g/dL 9:01 AM [facility] [place] Hematocrit 43.0 38.0 - 06/05/2018 [facility] 50.0 % 9:01 AM [facility] [place] Platelets 265 150 - 450 06/05/2018 [facility] [place] K/uL 9:01 AM [facility] [place] MCV 90.7 81.2 - 06/05/2018 [facility] [place] 95.1 fL 9:01 AM [facility] [place] MCH 30.6 26.0 - 06/05/2018 [facility] [place] 32.0 pg 9:01 AM [facility] [place] MCHC 33.7 32.0 - 06/05/2018 [facility] 36.0 g/dL 9:01 AM [facility] [place] RDW 13.8 11.8 - 06/05/2018 [facility] [place] 15.6 % 9:01 AM [facility] [place] Lymphocytes % 15.8 (L) 18.0 - 06/05/2018 [facility] [place] 45.0 % 9:01 AM [facility] [place] Mid-size Cells 8.1 3.3 - 10.1 06/05/2018 [facility] [place] % 9:01 AM [facility] [place] Granulocytes/Urszula 76.1 (H) 45.8 - 06/05/2018 [facility] [place] trophils 73.7 % 9:01 AM [facility] [place] Lymphocytes 1.4 0.9 - 2.9 06/05/2018 [facility] [place] Absolute K/uL 9:01 AM [facility] [place] MIDS Absolute 0.7 0.2 - 0.8 06/05/2018 [facility] [place] K/uL 9:01 AM [facility] [place] Granulocytes/Urszula 6.6 2.1 - 8.7 06/05/2018 [facility] [place] trophils K/uL 9:01 AM [facility] [place] Absolute Specimen Anatomical Collection Method Collection Time Receive d Time (Source) Location / / Volume Laterality Blood (Blood, 06/05/2018 8:53 AM 06/05/19 19 9:00 Venous) DOPE WORKER AM DOPE WORKER Laila Loco APRN, KAIAKO KURA KAUPAPA MAORI LAB BLOOD ORDERABLES Performing Organization Address City/State/ZIP Code Phon e Number [facility] [place] [address] [place] [address] PSA (06/05/2018 8:53 AM DOPE WORKER) P athologist Signature Total PSA 1.1 0.0 - 7.0 06/05/2018 [facility] ng/mL 2:05 PM [facility] Comment: The results from this [...] Blood (Blood, 06/05/2018 8:53 AM 06/05/19 Venous) DOPE WORKER 12:45 PM DOPE WORKER Laila Loco APRN, CNP LAB BLOOD ORDERABLES Performing Organization Address [facility] e Number [facility] [address] [place] [address] (ABNORMAL) Hemoglobin A1c (06/05/2018 8:53 AM DOPE WORKER) Analysis Performed At [facility] Time Signature Hemoglobin A1C 5.8 (H) 4.0 - 5.6 06/05/2018 [place] % A1C 2:32 PM [facility] Comment: Reference Range 4.0-5.6% is [...] Blood (Blood, 06/05/2018 8:53 AM 06/05/19 Venous) DOPE WORKER 12:43 PM DOPE WORKER Laila Loco APRN, CNP LAB BLOOD ORDERABLES Performing Organization Address [facility] Phon e Number [facility] [address] [place] [address] documented in this encounter Visit Diagnoses Diagnosis Screening for diabetes mellitus Screening for prostate cancer Special screening for malignant neoplasm of prostate Screening, anemia, deficiency, iron Screening for iron deficiency anemia Hyperlipidemia, unspecified hyperlipidem ia type documented in this encounter Care Teams Professional Architect Relationship Specialty Start Date End Date Laila Loco, WRAPPER LEAF INSPECTOR, KAIAKO KURA KAUP[place]A MAORI PCP - General 12/09/17 01/10/20 100 [facility] [place] [address] documented as of this encounter
--- OUTSIDE RECORDS SUMMARY | 2022-03-12 08:27 | XMS_ITS | Encounter Summary ---
:1940 Author Organization [facility] Address [address] [place] [address] Care Team Providers Name Role Phone Laila Loco APRN, IRA Primary Care Provider [phone] Reason for Referral Imaging (Routine) - Closed Specialty Diagnoses / Procedures Referred By Contact Refer red To Contact Radiology Diagnoses Cervical pain (neck) Laila Loco APRN, Procedures MRI Cervical Spine wo IV Contrast MACHINERY CLEANER [address] [place] [address] Referral ID Status Reason Start Date Expiration Date Visits Requ ested Visits Authorized [id number] Closed 07/30/2018 01/26/2019 1 1 Imaging (Routine) - Closed Specialty Diagnoses / Procedures Referred By Contact Refer red To Contact Radiology Diagnoses Chronic left shoulder pain Laila Lcoo APRN, Procedures MRI Shoulder Left wo IV Contrast MACHINERY CLEANER [address] [place] [address] Referral ID Status Reason Start Date Expiration Date Visits Requ ested Visits Authorized [id number] Closed 07/30/2018 01/26/2019 1 1 Reason for Visit Reason Comments Shoulder Pain Left Encounter Details Date Type Department Care Team Description 07/30/2018 Office Visit Laila Wilson Cervical pain (neck) (Primar y Dx); [address] M, WRECKING CRANE ENGINE OPERATOR, MACHINERY CLEANER Chronic left shoulder pain [place] Y[place] [address] [facility] [address] [place] [address] Social History Tobacco Use Types Packs/Day Years [...] encounter Patient Instructions Patient InstructionsChsulema Loco APRN, MACHINERY CLEANER - 07/30/2018 9:20 AM CDT Will call [...] HPI: The patient is a pleasant 78-year-old [id number] male [facility] [...] 2008, after slipping on ice in a judaism parking lot. The patient reports he wore [...] positions, particularly abduction. Positive Riojas's test. X-ray electrical instrument technician stated he had a difficult time [...] left shoulder and neck through [facility] in [place]. The patient will be notified of the impressions. The patient signed a release of information to obtain a copy of his left shoulder and neck x-ray to be burned to a CD to take with him if he is referred to orthopedics, and requests to be referred to Dr. Dodson at [facility] in [place] who he has a relationship with. The [...] fra cture. IMPRESSION: Minimal osteoarthritis. Laila Loco WRECKING CRANE ENGINE OPERATOR, MACHINERY CLEANER IMG XR PROCEDURES X-ray Cervical Spine 2-3 [...] for carotid artery disease Laila Loco APRN, MACHINERY CLEANER IMG XR PROCEDURES documented in this encounter Visit Diagnoses Diagnosis Cervical pain (neck) - Primary Cervicalgia Chronic left shoulder pain Pain in joint, shoulder region documented in this encounter Care Teams Custom Studio Coordinator Relationship Specialty Start Date End Date Laila Loco APRN, MACHINERY CLEANER PCP - General 12/09/17 01/10/20 100 [place] [address] documented as of this encounter
--- OUTSIDE RECORDS SUMMARY | 2022-03-12 08:27 | XMS_ITS | Encounter Summary ---
:1940 Author Organization [facility] Address [address] [place] [address] Care Team Providers Name Role Phone Laila Loco GRIT BLASTER, OYSTER SHUCKER Primary Care Provider [phone] Reason for Visit Reason Onset Date Comments medication 08/13/2018 Encounter Details Date Type Department Care Team Description 08/13/2018 Telephone [place] Laila Loco, medication [address] GRIT BLASTER, OYSTER SHUCKER [place], [place] [address] [address] [facility] [address] [phone] [place], [place] [address] Social History Tobacco Use [...] after they went to a trip in [place] at the end of July. The patient did fall in [place] but she denies hitting his head. She [...] on filedocumented in this encounter Care Teams Weight Shifter Relationship Specialty Start Date End Date Laila Loco APRN, OYSTER SHUCKER PCP - General 12/09/17 01/10/[address] [place] [address] [place] [address] documented as of this encounter
--- OUTSIDE RECORDS SUMMARY | 2022-03-12 08:27 | XMS_ITS | Encounter Summary ---
:1940 Author Organization [facility] Address [address] [place] [address] Care Team Providers Name Role Phone Laila Loco HOTEL SUPERINTENDENT, CPR AMBULANCE DRIVER Primary Care Provider Reason for Visit Reason Onset Date Comments Visit 08/21/2018 Encounter Details Date Type Department Care Team Description 08/21/2018 Telephone [place] Laila Loco, Visit [address] HOTEL SUPERINTENDENT, CPR AMBULANCE DRIVER [place], [place] [address] [address] [facility] [address] [phone] [place], [place] [address] Social History Tobacco Use [...] this afternoon. You can reach Astrid at [phone]. documented in this encounter Plan of Treatment Not on filedocumented as of this encounter Visit Diagnoses Not on filedocumented in this encounter Care Teams Supervisor Metal Fabricating Relationship Specialty Start Date End Date Laila Loco APRN, IRA PCP - General 12/09/17 01/10/[address] [place] [address] [place] [address] documented as of this encounter
--- OUTSIDE RECORDS SUMMARY | 2022-03-12 08:27 | XMS_ITS | Encounter Summary ---
:1940 Author Organization [facility] Address [address] [place] [address] Care Team Providers Name Role Phone Laila Loco HYDROGEN TREATER, MOBILE DEVICE DEVELOPER Primary Care Provider [phone] Reason for Visit Reason Onset Date Comments phone call 08/17/2018 Encounter Details Date Type Department Care Team Description 08/17/2018 Telephone [place] Laila Loco, phone call [address] HYDROGEN TREATER, MOBILE DEVICE DEVELOPER [place], [place] [address] [address] [facility] [address] [phone] [place], [place] [address] Social History Tobacco Use [...] Arti Amaya - 09/15/2018 1:16 PM CDT Cynid with CF Family Etienne called requesting to [...] on filedocumented in this encounter Care Teams Ice Cream Freezer Assistant Relationship Specialty Start Date End Date Laila Loco APRN, MOBILE DEVICE DEVELOPER PCP - General 12/09/17 01/10/[address] [place] [address] [place] [address] documented as of this encounter
--- OUTSIDE RECORDS SUMMARY | 2022-03-12 08:28 | XMS_ITS | Encounter Summary ---
:1940 Author Organization [facility] Address [address] [place] [address] Care Team Providers Name Role Phone Silver Givens M.D., Ph.D. Primary Care Provider [phone] Encounter Details Date Type Department Care Team Description 12/07/2021 Abstract [facility] Provider, Historical Social History Tobacco Use [...] documented as of this encounter Care Teams Cat Cracker Operator Relationship Specialty Start Date End Date Silver Givens M.D., Ph.D. PCP - General Family Medicine 11/10/19 12/09/21 documented as of this encounter
--- OUTSIDE RECORDS SUMMARY | 2022-03-12 08:28 | XMS_ITS | Encounter Summary ---
:1940 Author Organization [facility] Address [address] [place] [address] Care Team Providers Name Role Phone Silver Givens M.D., Ph.D. Primary Care Provider Encounter Details Date Type Department Care Team Description 12/07/2021 Lab Department of Laboratory Darvin Corral, Screening Examination For Viral Disease; Medicine and Pathology, MMarry Contact With And (Suspected) Exposure To COVID-19 [facility] in [address] [place] [address] [place] [address] [place] [address] [phone] Social History Tobacco Use Types Packs/Day Years [...] PCR, Varies Asymptomatic (12/07/2021 11:30 AM CDT) [facility] Method Time Signature SARS CoV-2 [...] Drug Administration an d is used per child and family counselor's instructions. Performance characteristics were verified by [facility] in a manner consistent with CLIA requirements. Visit the CDC website: https://www.cdc.g ov/coronavirus/ for the most recent guidelines on Coron avirus testing. Fact Sheet for Healthcare Providers: https://www.fda.gov/media/495461/downloa d Fact Sheet for Patients: https://www.fda.gov/media/033341/downloa d Specimen Anatomical Collection Method Collection Time Receive d Time (Source) Location / / Volume Laterality Varies 12/07/2021 11:30 12/07/2021 (Nasopharynx) AM CDT 12:27 PM CDT Darvin Corral M.D. LAB MICROBIOLOGY - GENERAL O RDERABLES Performing Organization Address City/State/ZIP Code Phon e Number [facility] - [address] [place], [place] [address] [facility] [place] [place] [address] Laboratories-[facility] [address] documented in [...] documented as of this encounter Care Teams Organizational Effectiveness Consultant Relationship Specialty Start Date End Date Silver Givens M.D., Ph.D. PCP - General Family Medicine 11/10/19 12/09/21 documented as of this encounter
--- OUTSIDE RECORDS SUMMARY | 2022-03-12 08:28 | XMS_ITS | Encounter Summary ---
:1940 Author Organization [facility] Address [address] [place] [address] Care Team Providers Name Role Phone Elsewhere, Pcp Primary Care Provider Unavailable Encounter Details Date Type Department Care Team Description 12/10/2021 Surgery Division of Cardiovascular Angella Costello oronary Angiography Diseases in Matty Yung M .D. [place] [address] [facility] [address] [place] [address] [phone] Social History Tobacco Use Types Packs/Day Years [...] through Care Everywhere.Care Following Your Catheter Procedure (Greenlandic)documented in this encounter Medications at Time of [...] instructions were reviewed in detail as per [id number] with patient and family. They verbalized understanding. [...] in Atherosclerotic the results Heart Disease section. 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) Atherosclerotic Heart Disease Of [place] Coronary Artery Without Angina Pectoris Abnormal Stress Test Atherosclerotic Heart Disease [place] 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) ([facility]) documented in this encounter Admitting Diagnoses Diagnosis Atherosclerotic Heart Disease Of [place] Coronary Artery Without Angina Pectoris Abnormal Stress [...] as of this encounter Care Teams Machine Tender Relationship Specialty Start Date End Date Elsewhere, Pcp PCP - General Internal Medicine 12/10/21 documented as of this encounter
--- OUTSIDE RECORDS SUMMARY | 2022-03-12 08:28 | XMS_ITS | Clinical Summary ---
:1940 Author Organization [facility] Address [address] [place] [address] Care Team Providers Name Role Phone Elsewhere, Pcp Primary Care Provider Unavailable Source Comments Patient records contain information from all sites at [facility]. For routine questions regarding patient records, call [phone] during business hours, M-F 8:00 AM - 5:00 PM Central Time. Record requests for emergency care only can be directed to [phone] at any time.[facility] Allergies Active Allergy Reactions Severity Noted Date [...] Added automatically from request for mayte hardy [id number] Anemia Iron Deficiency Blood Loss Chronic 09/11/2020 Overview: Added automatically from request for mayte hardy [id number] Stool Positive Occult Blood 09/11/2020 Overview: Added automatically from request for mayte hardy [id number] Aftercare Total Shoulder Arthroplasty 01/25/2020 Primary Osteoarthritis Shoulder Left 12/20/2019 Overview: Added automatically from request for mayte hardy [id number] Hyperglycemia 12/14/2019 Gastroesophageal Reflux Disease Without Esophagitis Loss Hearing Bilateral 12/14/2019 Osteoporosis Without Pathological Fracture 11/27/2017 Peripheral Vascular Disease 07/02/2017 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 Overview: Coronary Artery Disease (CAD) [place] Ves marlys Deficiency Vitamin D 03/10/2009 Stroke Cerebrovascular Accident Personal History 06/10 Hyperlipidemia 10/11/2002 Resolved Problems Problem Noted Date Resolved Date Non-ST Elevation Myocardial Infarction 08/15/2018 0 12/14/2019 Cataract Senile Nuclear Sclerosis Right 05/01/2017 12/14/2019 Overview: Added automatically from request for mayte cuiy [id number] Cataract Senile Nuclear Sclerosis Left 05/01/2017 0 12/14/2019 Overview: Added automatically from request for mayte hardy [id number] Fracture Vertebra Thoracic Closed Initial 04/20/2008 12/14/2019 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 01/18/2020 Encounters Date Type Specialty Care Team Description 12/10/2021 [facility] Cardi[facility] Disease Angella Costello mal Stress Test; Encounter Marisela Starr 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 Device Status Text - [id number]. Stnt Synergy Venkata Rx3x16 - [id number] Cardiac N/A: [place] 06/07/2020 [id number] / Implanted: Qty: 1 on 08/15/2018 by Jacques Barraza M.D. at [facility] Stent Coronary Scientific / [id number] Description: LAD Patch Hemasheild Knitted 1x3 - Figueroa 6590 Mesh or Patch Getin ge Group Implanted: Qty: 1 on 08/21/1999 Description: Device Modeling Instructor - [employer] Device Status Text - [id number]. Tencnis Iol Ocular Lens Right: Eye Ann 03/25/2021 [id number] 0 / Implanted: Qty: 1 on 07/07/2017 by Raymundo Kinney am, M.D. at [facility] [id number] / [id number] Ocular Lens Ann 02/24/2021 [id number] / Implanted: Qty: 1 on 07/21/2017 by Raymundo Kinney am, M.D. at [facility] [id number] / Shoulder Implant-03/23/2015 Shoulder Right: Implanted: 03/23/2015 by Marv Dodson M.D. (Quantity no t on file) Implant Shoulder Shldr Lnr Trb Rvrs +0x36 - Sna - [id number] Shoulder Left: Lisa [id number] 04/03/2026 [id number] / Implanted: Qty: 1 on 01/25/2020 by Marv Roman M.D. at [facility] Implant Shoulder Biomet NA / [id number] Procedures Procedure Name Priority Date/Time Associated Comments Diagnosis CARDIAC CATHETERIZATION Routine 12/10/2021 10:[address] Results for this AM CDT Test procedure are in Atherosclerotic the results Heart Disease section. [place] Coronary Artery With Other Forms Angina Pectoris (Stable Angina/Angina Of Exertion) ([facility]) ADULT OXYGEN THERAPY Routine 12/10/2021 10:08 AM CDT from Last 3 Months Results CORONARY ANGIOGRAPHY [...] Forms Angina Pectoris (Stable Angina/Angina Of Exertion) ([facility]) CORONARY DIAGNOSTIC SUMMARY Coronary artery dominance [...] Darvin Corral M.D. CV CARDIAC CATH PROCEDURES from Last 3 Months Insurance Payer Benefit Plan Subscriber ID Effective Phone Address Typ e / Group Dates MEDICARE MEDICARE A [id number] 2006-Pres [address] [place] [address] BLUE CROSS BCBS [place] [id number] 2016-Pres [phone] PO LIZBET X Cost Share BLUE SHIELD BLUE COST ent [phone] [place] [address] (Home) [place] [address] Advance Directives For more information, please contact: [phone] Documents on File Type Date Recorded Patient Paper Bag Machine Operator Explanati on Advance Directives 12/05/2021 Neetu RodriguezmColleen HCPOA/A DVOCATE/AGENT/REP JohnsonMarshall Jasmyn RESENTATIVE /SURROGATE Latest Code Status on File [...] Health Care Agent Ginette Dodson Daughter [facility] Agent Jesus Vines Son [facility] Agent Care Teams Personal Lines Insurance Agent Relationship Specialty Start Date End Date Elsewhere, Pcp PCP - General Internal Medicine 12/10/21
--- OUTSIDE RECORDS SUMMARY | 2022-03-12 08:28 | XMS_ITS | Encounter Summary ---
:1940 Author Organization [facility] Address [address] [place] [address] Care Team Providers Name Role Phone Elsewhere, Pcp Primary Care Provider Unavailable Encounter Details Date Type Department Care Team Description 12/10/2021 Hospital Division of Angella Costello Abnormal Stress Test; Encounter Cardiovascular Giulia Starr. Atherosclerotic Heart Disease [place] 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) (HCC); Diseases in [place], [facility] [address] [facility] Stress Test [facility] [address] [facility] [address] [phone] Social History Tobacco Use Types Packs/Day Years [...] through Care Everywhere.Care Following Your Catheter Procedure (Azerbaijani)documented in this encounter Medications at Time of [...] instructions were reviewed in detail as per SN4422-08 with patient and family. They verbalized understanding. [...] in Atherosclerotic the results Heart Disease section. [place] Coronary Artery With Other Forms Angina Pectoris (Stable Angina/Angina Of Exertion) ([facility]) ADULT OXYGEN THERAPY Routine 12/10/2021 10:08 AM CDT documented in this encounter Results CORONARY ANGIOGRAPHY (12/10/2021 10:59 AM CDT) Anatomical Region Laterality Modality X-Ray Angiography Specimen (Source) Anatomical Collection Method Collection Time Re ceived Time Location / / Volume Laterality 12/10/2021 10:20 AM CDT Narrative 12/10/2021 3:42 PM CDT For the complete report, see the [employer] Documents. PROCEDURE TYPES 1. ??CORONARY ANGIOGRAPHY FINAL DIAGNOSIS 1. ??Mild coronary artery atherosclerosi s PRE-PROCEDURE DIAGNOSIS 1. ??Abnormal Stress Test 2. 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) ([facility]) CORONARY DIAGNOSTIC SUMMARY Coronary artery dominance [...] Diagnosis Abnormal Stress Test Atherosclerotic Heart Disease [place] 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) (HCC) Atherosclerotic Heart Disease Of [place] Coronary Artery Without Angina Pectoris Abnormal Stress Test Atherosclerotic Heart Disease [place] 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) (HCC) documented in this encounter Admitting Diagnoses Diagnosis Atherosclerotic Heart Disease Of [place] Coronary Artery Without Angina Pectoris Abnormal Stress [...] documented as of this encounter Care Teams Subeditor Relationship Specialty Start Date End Date Elsewhere, Pcp PCP - General Internal Medicine 12/10/21 documented as of this encounter
--- OUTSIDE RECORDS SUMMARY | 2022-03-12 08:29 | XMS_ITS | Encounter Summary ---
:1940 Author Organization [facility] Address [address] [place] [address] Care Team Providers Name Role Phone Silver Givens M.D., Ph.D. Primary Care Provider [phone] Encounter Details Date Type Department Care Team [...] documented as of this encounter Care Teams Branch Lending Officer Relationship Specialty Start Date End Date Silver Givens M.D., Ph.D. PCP - General Family Medicine 11/10/19 12/09/21 documented as of this encounter
--- OUTSIDE RECORDS SUMMARY | 2022-03-12 08:29 | XMS_ITS | Encounter Summary ---
:1940 Author Organization [facility] Address [address] [place] [address] Care Team Providers Name Role Phone Silver Givens M.D., Ph.D. Primary Care Provider [phone] Reason for Visit Reason Comments Triage Encounter Details Date Type Department Care Team Description 12/03/2021 Clinical Communication Department of Physician Support Coordinator, [facility] Cardiovascular Medicine Marisela Kwon in [facility] supervisor instant potato processing [address] [place] [address] Social History Tobacco Use Types Packs/Day [...] an Echo Stress and consult with a Physician Support Coordinator per patient's ED visit. Pleasereview and advise [...] documented as of this encounter Care Teams Sap Basis Relationship Specialty Start Date End Date Silver Givens M.D., Ph.D. PCP - General Family Medicine 11/10/19 12/09/21 documented as of this encounter
--- OUTSIDE RECORDS SUMMARY | 2022-03-12 08:29 | XMS_ITS | Encounter Summary ---
:1940 Author Organization [facility] Address [address] [place] [address] Care Team Providers Name Role Phone Silver Givens M.D., Ph.D. Primary Care Provider [phone] Reason for Visit Outpatient (Routine) - Closed Specialty Diagnoses / Procedures Referred By Contact Refer red To Contact Diagnoses Pain Shoulder Left Marv Dodson M.D. [facility] Region Procedures DX Shoulder Left 2+ Views DX Shoulder Right 2+ Views [address] [place] [phone] Referral ID Status Reason Start Date Expiration Date Visits Requ ested Visits Authorized [id number] Closed 08/20/2021 08/20/2022 1 1 Encounter Details Date Type Department Care Team Description 08/20/2021 Hospital Encounter Department of Marcus Dodson Left Radiology in Marisela [place] [address] [place] [phone] Social History Tobacco Use Types Packs/Day Years [...] documented as of this encounter Care Teams Soc Analyst Relationship Specialty Start Date End Date Silver Givens M.D., Ph.D. PCP - General Family Medicine 11/10/19 12/09/21 documented as of this encounter
--- OUTSIDE RECORDS SUMMARY | 2022-03-12 08:29 | XMS_ITS | Encounter Summary ---
:1940 Author Organization [facility] Address [address] [place] [address] Care Team Providers Name Role Phone Silver Givens M.D., Ph.D. Primary Care Provider [phone] Reason for Visit Reason Comments Communication 3 month endoscopy call, susanna salmeron Encounter Details Date Type Department Care Team Description 09/12/2020 Clinical Department of Carmen Mcdonald (3 Communication General Surgery in A, L.P.N. month endoscopy call, Fabricio Kirk, [address] [place], [place] [address]shanae vansc) [address] [phone] Social History Tobacco Use Types Packs/Day [...] Gualac positive stools (R19.5 If scheduled in [facility], pre-op appointment scheduled: No Pre-Endoscopy Education [...] testing 3-7 days prior at [address] [place] [address] documented in this encounter Plan of Treatment Not on filedocumented as of this encounter Results SARS Coronavirus-2 RNA, V Asymptomatic (09/25/2020 8:31 AM CDT) [facility] Method Time Signature SARS-CoV-2 Swab, 09/25/2020 [...] pe rformed using the Aptima SARS-CoV-2 assay ([employer] on the [facility] Internationals tem under emergency use authorization (EUA) by the U.S. Food and Drug Administ ration. Fact sheets for this EUA assay can be fo und at the following links: For Healthcare Providers: https://www.iMOSPHERE a.gov/media/773754/download For Patients: https://www.fda.gov/media/ 774051/download Specimen Anatomical Collection Method Collection Time Receive d Time (Source) Location / / Volume Laterality Varies 09/25/2020 8:31 AM 2:56 (Nasopharynx) CDT PM CDT Wood Car M.D. LAB MICROBIOLOGY - GENERAL O RDERABLES Performing Organization Address City/State/[facility] Phon e Number [facility]- [address] [place] [address] 343 [facility] [place] [address] System in [address] documented in this encounter Visit Diagnoses Diagnosis Anemia Iron Deficiency Blood Loss Chroni c - Primary documented in this encounter Additional Health Concerns Assessment Noted Time PHQ-9 Depression Total Score: 2 03/08/2015 11:16 AM CS T documented as of this encounter Care Teams Flame Cutting Machine Operator Helper Relationship Specialty Start Date End Date Silver Givens M.D., Ph.D. PCP - General Family Medicine 11/10/19 12/09/21 documented as of this encounter
--- OUTSIDE RECORDS SUMMARY | 2022-03-12 08:29 | XMS_ITS | Encounter Summary ---
:1940 Author Organization [facility] Address [address] [place] [address] Care Team Providers Name Role Phone Silver Givens M.D., Ph.D. Primary Care Provider [phone] Reason for Referral Outpatient (Routine) - Closed Specialty Diagnoses / Procedures Referred By Contact Refer red To Contact Diagnoses Pain Chest Atherosclerotic Heart Disease Of [place] Coronary Artery Without Angina Pectoris Nic Mitchell P.A.-C., [facility] Procedures Echo Stress M.S. [address] [place] [address] Referral ID Status Reason Start Date Expiration Date Visits Requ ested Visits Authorized [id number] Closed 12/03/2021 12/03/2022 1 1 Reason for Visit Outpatient (Routine) - Closed Specialty Diagnoses / Procedures Referred By Contact Refer red To Contact Diagnoses Pain Chest Atherosclerotic Heart Disease Of [place] Coronary Artery Without Angina Pectoris Nic Mitchell P.A.-C., [facility] Procedures Echo Stress M.S. [address] [place] [address] Referral ID Status Reason Start Date Expiration Date Visits Requ ested Visits Authorized [id number] Closed 12/03/2021 12/03/2022 1 1 Encounter Details Date Type Department Care Team Description 12/05/2021 Hospital Department of [place], Pain Chest; Encounter Cardiovascular Nic RRyan ic Heart Disease Of [place] Coronary Artery Without Angina Pectoris Diseases in Laura Yung, M.S. [place] [address] [place] [address] [phone] Social History Tobacco Use Types Packs/Day Years [...] AND Heart Disease Of the results CONTRAST [place] Coronary section. Artery Without Angina Pectoris documented in this encounter Results ECHO STRESS 2D WITH COLOR, LIMITED DOPPLER AND CONTRAST (12/05/2021 1:49 PM CDT) [facility] Method Time Signature Ejection Fraction 60 [...] Echocardiography Contrast Administration P rotocol Reference Document [id number]. P atient met an inclusion criterion and [...] per Echocardiography Contrast Administration Protocol Reference Document [id number]. Patient met an inclusion criterion and did not have contraindications in screening sections. For the complete report, see the [employer] Documents. Nic Mitchell P.A.-C. M.S. CV ECHO PROCEDURES documented in this encounter Visit Diagnoses Diagnosis Pain Chest Atherosclerotic Heart Disease Of [place] Coronary Artery Without Angina Pectoris documented in [...] as of this encounter Care Teams Shipping Inspector Relationship Specialty Start Date End Date Silver Givens M.D., Ph.D. PCP - General Family Medicine 11/10/19 12/09/21 documented as of this encounter
--- OUTSIDE RECORDS SUMMARY | 2022-03-12 08:29 | XMS_ITS | Encounter Summary ---
:1940 Author Organization [facility] Address [address] [place] [address] Care Team Providers Name Role Phone Silver Givens M.D., Ph.D. Primary Care Provider [phone] Encounter Details Date Type Department Care Team Description 09/18/2021 Clinical Department of Fabien Gillette, Communication Otorhinolaryngology in [address] [place] [address] [place], [place] [phone] Social History Tobacco Use Types Packs/Day [...] documented as of this encounter Care Teams Second Floor Operator Relationship Specialty Start Date End Date Silver Givens M.D., Ph.D. PCP - General Family Medicine 11/10/19 12/09/21 documented as of this encounter
--- OUTSIDE RECORDS SUMMARY | 2022-03-12 08:29 | XMS_ITS | Encounter Summary ---
:1940 Author Organization [facility] Address [address] [place] [address] Care Team Providers Name Role Phone Silver Givens M.D., Ph.D. Primary Care Provider [phone] Reason for Referral Outpatient (Routine) - Authorized Specialty Diagnoses / Procedures Referred By Contact Refer red To Contact Emergency Medicine Diagnoses Epistaxis Isidro Pham, MARIANNAS [facility] ED, C.N.P. [address] [address] Referral ID Status Reason Start Date Expiration Date Visits V isits Requested Authorized [id number] Authorized 08/15/2021 08/15/2022 1 1 Reason for Visit Reason Comments Fall Fall on Friday presents now with a nose bleed. Encounter Details Date Type Department Care Team Description 08/15/2021 Emergency [facility] Emergency Trever Gracia, P.A.Yesenia. [address] [place] [address] Epistaxis (Primary Dx); Department Isidro Pham APRN, C.N.P. [address] [place] [phone] History Of Falling; [address] [place] [address] BLVD Injury Head Initial ROSALIA CLARK, YARIEL [...] Try applying pressure for least 15 minutes, pickle solution maker some Afrin and do 2 sprays into the nostril. If he continued to bleed after that please return to the ER. AttachmentsThe following attachments cannot be sent through Care Everywhere. Nosebleed Adult (Uzbek)documented in this encounter Medications at Time of [...] PM CDT Care of patient transferred to ct by Joshua Gracia PA-C. Disposition pending lab [...] Neuroradiology ARZ N/A Computed Tomography LOS, Neuroradiology [facility] Specimen (Source) Anatomical Collection Method Collection Time [...] ARZ LOS, N/A Computed Tomography Neuroradiology FLA [facility] Specimen (Source) Anatomical Collection Method Collection [...] CDT eGFR-Black/Afri 67 >=60 08/15/2021 CNFL can British mL/min/BSA 7:21 PM CDT Comment: ----ADDITIONAL INFORMATION---- Estimated GFR calculated using the 2009 CKD_EPI creatinine equation. eGFR Non-Black/ 58 (L) >=60 mL/min/BSA 08/15/2021 7:21 PM CDT CNFL British Comment: ----ADDITIONAL INFORMATION---- Estimated GFR calculated using [...] P.A.-C. LAB BLOOD ADD-ON Performing Organization Address City/State/[facility] Code Phon e Number [facility]- [address] [place] [phone] [place] [address] [place] [address] System in [address] Prothrombin Time (PT) (08/15/2021 6:05 PM [...] Code Phon e Number [facility]- [address] [place] [address] [place] [address] System [place] [address] (ABNORMAL) CBC with Differential, Blood (08/15/2021 6:05 PM CDT) [facility] Method Time Signature Hemoglobin 13.4 13.2 - [...] Code Phon e Number [facility]- [address] [place] [address] [place] [address] [place] [address] System in [address] documented in this encounter Visit Diagnoses [...] documented as of this encounter Care Teams Exercise Manager Relationship Specialty Start Date End Date Silver Givens M.D., Ph.D. PCP - General Family Medicine 11/10/19 12/09/21 documented as of this encounter
--- OUTSIDE RECORDS SUMMARY | 2022-03-12 08:29 | XMS_ITS | Encounter Summary ---
:1940 Author Organization [facility] Address [address] [place] [address] Care Team Providers Name Role Phone Silver Givens M.D., Ph.D. Primary Care Provider [phone] Encounter Details Date Type Department Care Team Description 09/25/2020 Lab Department of Family Deppe, Hailey Mehta Iron Deficiency Medicine, Professional and M.D. [facility] in [address] [address] [place] [address] [phone] Social History Tobacco Use Types Packs/Day Years [...] RNA, V Asymptomatic (09/25/2020 8:31 AM CDT) [facility] Method Time Signature SARS-CoV-2 Swab, 09/25/2020 [...] pe rformed using the Aptima SARS-CoV-2 assay ([employer] on the [employer]s tem under emergency use authorization (EUA) by the U.S. Food and Drug Administ ration. Fact sheets for this EUA assay can be fo und at the following links: For Healthcare Providers: https://www.[employer] a.gov/media/451375/download For Patients: https://www.fda.gov/media/ 561334/download Specimen Anatomical Collection Method Collection Time Receive d Time (Source) Location / / Volume Laterality Varies 09/25/2020 8:31 AM 2:56 (Nasopharynx) CDT PM CDT Wood Car M.D. LAB MICROBIOLOGY - GENERAL O RDERABLES Performing Organization Address City/State/ZIP Code Phon e Number [facility]- [address] [place] [address] [address] [facility] [address] [place] [address] System [address] documented in this encounter Visit Diagnoses Diagnosis Anemia Iron Deficiency Blood Loss Chroni c documented in this encounter Additional Health Concerns Infection Onset Date Last Indicated Resolved Time COVID19 Pending 09/25/2020 09/25/2020 09/25/2020 8:20 PM CDT Assessment Noted Time PHQ-9 Depression Total Score: 2 03/08/2015 11:16 AM CS T documented as of this encounter Care Teams Black Top Raker Relationship Specialty Start Date End Date Silver Givens M.D., Ph.D. PCP - General Family Medicine 11/10/19 12/09/21 documented as of this encounter
--- OUTSIDE RECORDS SUMMARY | 2022-03-12 08:29 | XMS_ITS | Encounter Summary ---
:1940 Author Organization [facility] Address [address] [place] [address] Care Team Providers Name Role Phone Silver Givens M.D., Ph.D. Primary Care Provider [phone] Encounter Details Date Type Department Care Team Description 09/29/2020 Hospital Encounter Department of Wood Car, Gastroenterology in [address] [phone] Social History Tobacco Use Types Packs/Day Years [...] CDTAssociated Order(s): UPPER GI ENDOSCOPY [facility] Patient Name: Obey Vines Procedure Date: [...] 10:10 AM CDTAssociated Order(s): COLONOSCOPY [facility] [place] [place] [facility] Patient Name: Obey Vines Procedure Date: [...] bowel preparation was evaluated using the BBPS ([place] Bowel Preparation Scale) with scores of: Right [...] Component Value Ref Test Analysis Performed At [facility] Method Time Signature 10/04/2020 ECLR [...] Organization Address City/State/ZIP Code Phon e Number [facility]- [address] [place] [phone] [facility] [place] [address] [address] UPPER GI ENDOSCOPY (09/29/2020 10:14 AM CDT) Specimen (Source) Anatomical Location Collection Method / Collectio n Time Received Time / Laterality Volume Narrative This result has an attachment that is no t available. Procedure Note Wood Car M.D. - 09/29/2020 10:14 AM CDT [facility] Patient Name: Obey Vines Procedure Date: [...] - 09/29/2020 10:10 AM CDT [facility] Patient Name: Obey Vines Procedure Date: [...] preparation was ev aluated using the BBPS ([place] Bowel Preparation Scal e) with scores of: [...] documented as of this encounter Care Teams Seed Packer Relationship Specialty Start Date End Date Silver Givens M.D., Ph.D. PCP - General Family Medicine 11/10/19 12/09/21 documented as of this encounter
--- OUTSIDE RECORDS SUMMARY | 2022-03-12 08:29 | XMS_ITS | Encounter Summary ---
:1940 Author Organization [facility] Address [address] [place] [address] Care Team Providers Name Role Phone Silver Givens M.D., Ph.D. Primary Care Provider Reason for Referral Outpatient (Routine) - Authorized Specialty Diagnoses / Procedures Referred By Contact Refer red To Contact Cardiovascular Disease Darvin Corral [place] [address] [place] M.D. [address] [place] [address] Referral ID Status Reason Start Date Expiration Date Visits V isits Requested Authorized [id number] Authorized 12/07/2021 12/07/2022 1 1 Reason for Visit Outpatient (Routine) - Closed Specialty Diagnoses / Procedures Referred By Contact Refer red To Contact Cardiovascular Disease Nic Mitchell [place] PCali, MLaraSLara [address] [place] [address] Referral ID Status Reason Start Date Expiration Date Visits Requ ested Visits Authorized [id number] Closed 12/03/2021 12/03/2022 1 1 Encounter Details Date Type Department Care Team Description 12/07/2021 Office Visit Department of Darvin Corral Abnormal St ress Test (Primary Dx); Cardiovascular Medicine Marisela Gallardo Atherosclerotic Heart Disease [place] 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) ([facility]) in [facility] 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 [address] [place] [phone] [phone] Social History Tobacco Use Types Packs/Day Years [...] Stress Test - Primary Atherosclerotic Heart Disease [place] 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 PCP - General Family Medicine 11/10/19 12/09/21 documented as of this encounter
--- OUTSIDE RECORDS SUMMARY | 2022-03-12 08:29 | XMS_ITS | Encounter Summary ---
:1940 Author Organization [facility] Address [address] [place] [address] Care Team Providers Name Role Phone Silver Givens M.D., Ph.D. Primary Care Provider [phone] Reason for Visit Physical Therapy (Routine) - Canceled Specialty Diagnoses / Procedures Referred By Contact Refer red To Contact Diagnoses Aftercare Total Shoulder Arthroplasty Laine Day, P.A.-C. [facility] Procedures PT Ongoing treatment [address] [facility] [place] [address] Referral ID Status Reason Start Date Expiration Date Visits V isits Requested Authorized [id number] Canceled 02/07/2020 02/06/2021 99 99 Encounter Details Date Type Department Care Team Description 04/05/2020 Clinical Support Department of Laine Dya, P.A.-C. [address] [place] [phone] Aftercare Total Rehabilitation Arti Lundberg, P.T. [address] [place] [phone] Shoulder Services in [address] [phone] Social History Tobacco Use Types Packs/Day Years [...] Lundberg P.T. Department of Rehabilitation Services in [address] [address] Dept: [phone] K JACK DEALER documented in this encounter Plan of Treatment Not on filedocumented as of this encounter Visit Diagnoses Diagnosis Aftercare Total Shoulder Arthroplasty documented in this encounter Additional Health Concerns Assessment Noted Time PHQ-9 Depression Total Score: 2 03/08/2015 11:16 AM CS T documented as of this encounter Care Teams Junior Accountant Bookkeeper Relationship Specialty Start Date End Date Silver Givens M.D., Ph.D. PCP - General Family Medicine 11/10/19 12/09/21 documented as of this encounter
--- OUTSIDE RECORDS SUMMARY | 2022-03-12 08:29 | XMS_ITS | Encounter Summary ---
:1940 Author Organization [facility] Address [address] [place] [address] Care Team Providers Name Role Phone Silver Givens M.D., Ph.D. Primary Care Provider Encounter Details Date Type Department Care Team Description 06/19/2020 Orders Only [facility] PCP [facility] YARIELT Sa lindy Kirkland M.D. [address] [place], [place] [phone] (Wo rk) Social History [...] documented as of this encounter Care Teams Inventory Control Planner Relationship Specialty Start Date End Date Silver Givens M.D., Ph.D. PCP - General Family Medicine 11/10/19 12/09/21 documented as of this encounter
--- OUTSIDE RECORDS SUMMARY | 2022-03-12 08:29 | XMS_ITS | Encounter Summary ---
:1940 Author Organization [facility] Address [address] [place] [address] Care Team Providers Name Role Phone Silver Givens M.D., Ph.D. Primary Care Provider [phone] Reason for Visit Reason Comments Communication 3 day endoscopy call, covia Encounter Details Date Type Department Care Team Description 09/26/2020 Clinical Department of Carmen Mcdonald (3 day Communication General Surgery in [facility] endoscopy call, [place], [address] [place] [address]) [address] [place] [phone] Social History Tobacco Use Types Packs/Day [...] lying flat? No Do you have an latter day or other objection to having a blood transfusion? No Medication Review: Anticoagulation: Yes Diabetic: No Prescription pain medication: No Did you get instructions for what medications to hold? Yes Reviewed booklet with patient including prep, procedural expectations, NPO instructions, arrival time and that they need a sprinkling truck driver: Yes Time patient needs to arrive for procedure: (9:40 AM) Patient verbalizes arrival time and instructions for procedure: Yes If patient is concerned he is not empting pre-procedural, please call the listed number, based on location, the morning of. [phone] [facility] [phone] [facility] [phone] [facility] COVID Screening Questions Does [...] documented as of this encounter Care Teams Bleach Packer Relationship Specialty Start Date End Date Silver Givens M.D., Ph.D. PCP - General Family Medicine 11/10/19 12/09/21 documented as of this encounter
--- OUTSIDE RECORDS SUMMARY | 2022-03-12 08:29 | XMS_ITS | Encounter Summary ---
:1940 Author Organization [facility] Address [address] [place] [address] Care Team Providers Name Role Phone Silver Givens M.D., Ph.D. Primary Care Provider [phone] Encounter Details Date Type Department Care Team [...] as of this encounter Care Teams Assembly Machine Feeder Relationship Specialty Start Date End Date Silver Givens M.D., Ph.D. PCP - General Family Medicine 11/10/19 12/09/21 documented as of this encounter
--- OUTSIDE RECORDS SUMMARY | 2022-03-12 08:29 | XMS_ITS | Encounter Summary ---
:1940 Author Organization [facility] Address [address] [place] [address] Care Team Providers Name Role Phone Silver Givens M.D., Ph.D. Primary Care Provider [phone] Reason for Visit Reason Comments Abdominal Pain Chest Pain Encounter Details Date Type Department Care Team Description 11/30/2021 Emergency [facility] Hamzah Hernández M, Abd ominal Pain (Primary Dx); Emergency Department Marisela, M.B.A. Coronary Artery Disease With Stable Olivia na ([facility]) [address] [facility] [address] [place] [phone] (Wo rk) Social History Tobacco Use Types [...] through Care Everywhere. Coronary Artery Disease Male (Lao)documented in this encounter Medications at Time of [...] PM CDT CARDIOLOGY CONSULT NOTE Cardiology Collaborating Intrusion Analyst: Dr. 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 CATH ANGIOGRAM N/A 08/15/2018 Procedure: Coronary Angiography; Surgeon: Jacques Barraza M.D.; Location: [facility] CATH INTERVENTION N/A 08/15/2018 Procedure: Stent Placement; Surgeon: Jacques Barraza M.D.; Location: [facility] CATH PTCA N/A 08/15/2018 Procedure: Percutaneous Coronary Angioplasty; Surgeon: Jacques Barraza M.D.; Location: [facility] COLONOSCOPY N/A 09/29/2020 Procedure: COLONOSCOPY-P; Surgeon: Wood Car M.D.; Location: [facility] GI LAB CORONARY ANGIOPLASTY WITH STENT PLACEMENT N/A 12/19/2011 >1. Percutaneous coronary intervention with drug-eluting stent following a lytics for STEMI (lytics DECOMPRESSION OF MEDIAN NERVE N/A 10/17/2006 Carpal tunnel release ESOPHAGOGASTRODUODENOSCOPY N/A 09/29/2020 Procedure: ESOPHAGOGASTRODUODENOSCOPY; Surgeon: Wood Car M.D.; Location: [facility] GI LAB EXTRACTION CATARACT WITH INSERTION INTRAOCULAR LENS Right 07/07/2017 Procedure: EXTRACTION CATARACT WITH INSERTION INTRAOCULAR LENS; Surgeon: Raymundo Muniz M.D.; Location: [facility] OR EXTRACTION CATARACT WITH INSERTION INTRAOCULAR LENS Left 07/21/2017 Procedure: EXTRACTION CATARACT WITH INSERTION INTRAOCULAR LENS; Surgeon: Raymundo Muniz M.D.; Location: [facility] OR MOHS SURGERY N/A 06/23/2006 [...] male with a history of CAD prior IA, s/p stenting Please see HPI for further [...] chest pain for the past month. Thepatient's FOREIGN STUDENT ADVISER TEACHER from [place] with the [facility] suggested that patient be seen based [...] performed and their clinic outside of the [place] system earlier today, however. The patient has [...] in MDM. Case reviewed with other health morning caregiver, including Cardiology. ED Course as of 11/30/212023Nov [...] 2H/6H, 5th Gen (11/30/2021 4:30 PM CDT) [facility] Method Time Signature Troponin T, [...] 22 4:33 Venous) CDT PM CDT Narrative [facility] - 11/30/2021 4:56 PM CDT Specimen Information: Specimen ID: [id number] Specimen Type: Blood Specimen Collection Start Date: 12/01/19 ??4:30 PM Specimen Received Date: 11/30/2021 ??4:3 3 PM Specimen ID: [id number] Specimen Type: Blood Specimen Collection Start Date: 12/01/19 ??4:56 PM Specimen Received Date: 11/30/2021 ??4:5 6 PM Hamzah Hernández M.D., M.B.A. LAB BLOOD TROPONIN Performing Organization Address City/State/ZIP Code Phon e Number [facility] - [address] [place] [address] [place] [address] [facility] [address] [facility] DX Chest AP or PA and Lateral [...] Signature Troponin T, 12 <=15 ng/L 11/30/2021 [facility] Baseline, 5th 3:06 PM CDT gen Specimen Anatomical Collection Method Collection Time Receive d Time (Source) Location / / Volume Laterality Blood (Blood, 11/30/2021 2:38 PM 12/01/19 22 2:44 Venous) CDT PM CDT Hamzah Hernández M.D., M.B.A. LAB BLOOD TROPONIN Performing Organization Address City/State/ZIP Code Phon e Number [facility] - [address] [place] [address] 05 [place] [address] Laboratories[address] Prothrombin Time (PT) (11/30/2021 2:38 PM CDT) athologist Signature Prothrombin 12.5 9.4 - 12.5 11/30/2021 [facility] Time, P sec 2:53 PM CDT INR 1.1 0.9 - 1.1 11/30/2021 [facility] PM CDT Comment: ----ADDITIONAL INFORMATION---- Standard intensity warfarin therapeutic range: 2.0 to 3.0 ?? High intensity warfarin therapeutic rang e: 2.5 to 3.5 Specimen Anatomical Collection Method Collection Time Receive d Time (Source) Location / / Volume Laterality Blood (Blood, 11/30/2021 2:38 PM 12/01/19 2:44 Venous) CDT PM CDT Hamzah Hernández M.D., M.B.A. LAB BLOOD ADD-ON Performing Organization Address City/State/[facility] Code Phon e Number [facility] - [address] [place] [address] [address] [place] [address] [address] NT-Pro B-Type Natriuretic Peptide (BNP) (11/30/2021 2:38 PM CDT) athologist Signature NT-Pro BNP 227 <=540 pg/mL 11/30/2021 [facility] 3:08 PM CDT Comment: NT-proBNP [...] M.B.A. LAB BLOOD ADD-ON Performing Organization Address City/[facility] Phon e Number [facility] - [address] [phone] 05 [facility] [place] [address] Lipase (11/30/2021 2:38 PM CDT) P athologist Signature Lipase, S 32 13 - 60 U/L 11/30/2021 3:38 DTL PM CDT Specimen Anatomical Collection Method Collection Time Receive d Time (Source) Location / / Volume Laterality Blood (Blood, 11/30/2021 2:38 PM 12/01/19 3:09 Venous) CDT PM CDT Hamzah Hernández M.D., M.B.A. LAB BLOOD ADD-ON Performing Organization Address City/[facility] Phon e Number [address] (ABNORMAL) Hepatic Function Panel (11/30/2021 2:38 [...] City/State/ZIP Code Phon e Number [facility] - [address] [place], [place] [address] [facility] [place] [address] Laboratories-[facility] 200 [facility] (ABNORMAL) CBC with Differential, Blood (11/30/2021 2:38 PM CDT) [facility] Method Time Signature Hemoglobin 13.1 [...] City/State/ZIP Code Phon e Number [facility] - [address] [place], [place] [address] [facility] [place] [address] Laboratories-[facility] 200 [facility] Basic Metabolic Panel (11/30/2021 2:38 [...] CDT eGFR-Black/Afric 71 >=60 11/30/2021 [facility] an Ghanaian mL/min/BSA 3:02 PM CDT Comment: ----ADDITIONAL INFORMATION---- [...] City/State/ZIP Code Phon e Number [facility] - [address] [place], [place] [address] [facility] [place] [address] Laboratories-[facility] [address] ECG 12 Lead (11/30/2021 2:09 PM CDT) P athologist Signature Ventricular Rate 54 BPM MUSE ECG/Min OK Interval 178 ms MUSE QRSD Interval 84 ms MUSE QT Interval 444 ms MUSE QTC Interval 421 ms MUSE P [place] 54 degrees MUSE R [place] 2 degrees MUSE T Wave [place] 30 degrees MUSE Specimen Anatomical Collection Method [...] change was found Reviewed by DARRELL Little Hamzha Hernández M.D., M.B.A. ECG ORDERABLES Performing Organization Address City/State/ZIP Code Phon e Number MUSE MUSE NA documented in this encounter Visit Diagnoses Diagnosis Abdominal Pain - Primary Coronary Artery Disease With Stable Olivia na (HCC) documented in this encounter Additional Health Concerns Assessment Noted Time PHQ-9 Depression Total Score: 2 03/08/2015 11:16 AM CS T documented as of this encounter Care Teams Plastics Fitter Relationship Specialty Start Date End Date Silver Givens M.D., Ph.D. PCP - General Family Medicine 11/10/19 12/09/21 documented as of this encounter
--- OUTSIDE RECORDS SUMMARY | 2022-03-12 08:29 | XMS_ITS | Encounter Summary ---
:[address] [facility] Address [address] [place] [address] Care Team Providers Name Role Phone Silver Givens M.D., Ph.D. Primary Care Provider [phone] Encounter Details Date Type Department Care Team Description 09/29/2020 Anesthesia Event Department of Vernon Santa APRN, REGISTERED NURSE FIRST ASSISTANT [address] [place] [address] Gastroenterology in [facility] Christa Burt M.D. [address] [place] [address] [phone] Anesthesia Record Procedure Summary Procedure Name Responsible Anesthesiologist Anesthesia Start Ti me Anesthesia Stop Time COLONOSCOPY-P Yordy Santa APRN, 09/29/20 1025 1100 REGISTERED NURSE FIRST ASSISTANT Events Date Time Event Comment 09/29/2020 1022 [...] 1418 by Left; bhavani, sling; Brandi Millard, [facility] inic-Backgroun 01/23/21 (Removed by Liu Presley [...] Procedure Summary Date: 09/29/20 Room / Location: [facility] 1412 / [facility] - [place] Anesthesia Start: 1025 Anesthesia Stop: [...] [D50.0] Stool Positive Occult Blood [R19.5] Location: [facility] 141 / [facility] - [place] Providers: Wood Car M.D. Pertinent components of the patient's history including current problem list, medical history, surgical history, family history, social history, medications and allergies were reviewed. Present illnessand pre-op diagnosis were confirmed. The planned surgery / procedure was verified with the patient /legal guardian. The patient's general health condition remains unchanged RELEVANT COMORBID CONDITIONS CV (+) Atherosclerotic Heart Disease Of [place] Coronary Artery Without Angina Pectoris (+) Peripheral [...] with patient /legal guardian or through an recycle worker. The use of blood products not discussed [...] documented as of this encounter Care Teams Technical Supervisor Relationship Specialty Start Date End Date Silver Givens M.D., Ph.D. PCP - General Family Medicine 11/10/19 12/09/21 documented as of this encounter
--- OUTSIDE RECORDS SUMMARY | 2022-03-12 08:29 | XMS_ITS | Encounter Summary ---
:1940 Author Organization [facility] Address [address] [place] [address] Care Team Providers Name Role Phone Silver Givens M.D., Ph.D. Primary Care Provider [phone] Encounter Details Date Type Department Care Team Description 01/29/2021 Orders Only [facility] PCP [facility] Sa lindy Kirkland M.D. [address] [place], [place] [phone] (Wo rk) Social History [...] as of this encounter Care Teams Architectural Drafting Instructor Relationship Specialty Start Date End Date Silver Givens M.D., Ph.D. PCP - General Family Medicine 11/10/19 12/09/21 documented as of this encounter
--- OUTSIDE RECORDS SUMMARY | 2022-03-12 08:29 | XMS_ITS | Encounter Summary ---
:1940 Author Organization [facility] Address [address] [place] [address] Care Team Providers Name Role Phone Elsewhere, Pcp Primary Care Provider Unavailable Reason for Referral Outpatient (Routine) - Closed Specialty Diagnoses / Procedures Referred By Contact Refer red To Contact Diagnoses Pain Chest Atherosclerotic Heart Disease Of [place] Coronary Artery Without Angina Pectoris Nic [place] P.A.-C., [facility] Procedures Echo Stress M.S. [address] [place] [address] Referral ID Status Reason Start Date Expiration Date Visits Requ ested Visits Authorized [id number] Closed 12/03/2021 12/03/2022 1 1 Outpatient (Routine) - Closed Specialty Diagnoses / Procedures Referred By Contact Refer red To Contact Cardiovascular Disease Nic [place], [facility] Laura, M.SLara [address] [place] [address] Referral ID Status Reason Start Date Expiration Date Visits Requ ested Visits Authorized [id number] Closed 12/03/2021 12/03/2022 1 1 Encounter Details Date Type Department Care Team Description 12/03/2021 Orders Only Department of Nic [place] Pain Chest ( Primary Dx); Cardiovascular Medicine Laura Patel Athe rosclerotic Heart Disease Of [place] Coronary Artery Without Angina Pectoris in [facility] M.S. [address] [place] [address] [phone] Social History Tobacco Use Types Packs/Day Years [...] DOPPLER AND CONTRAST (12/05/2021 1:49 PM CDT) [facility] gist Method Time Signature Ejection Fraction [...] Echocardiography Contrast Administration P rotocol Reference Document [id number]. P atient met an inclusion criterion and [...] per Echocardiography Contrast Administration Protocol Reference Document [id number]. Patient met an inclusion criterion and did not have contraindications in screening sections. For the complete report, see the Order-L evel Documents. Nic [place] P.A.-C. M.S. CV ECHO PROCEDURES documented in this encounter Visit Diagnoses Diagnosis Pain Chest - Primary Atherosclerotic Heart Disease Of [place] Coronary Artery Without Angina Pectoris Pain Chest Atherosclerotic Heart Disease Of [place] Coronary Artery Without Angina Pectoris documented in this encounter Additional Health Concerns Infection Onset Date Last Indicated Resolved Time COVID19 Pending 12/04/2021 12/04/2021 12/04/2021 3:27 PM CDT COVID19 Pending 12/07/2021 12/07/2021 12/07/2021 4:30 PM CDT Assessment Noted Time PHQ-9 Depression Total Score: 2 03/08/2015 11:16 AM CS T documented as of this encounter Care Teams Robotype Operator Relationship Specialty Start Date End Date Elsewhere, Pcp PCP - General Internal Medicine 12/10/21 documented as of this encounter
--- OUTSIDE RECORDS SUMMARY | 2022-03-12 08:29 | XMS_ITS | Encounter Summary ---
:[address] [facility] Address [address] [place] [address] Care Team Providers Name Role Phone Silver Givens M.D., Ph.D. Primary Care Provider [phone] Reason for Visit Physical Therapy (Routine) - Canceled Specialty Diagnoses / Procedures Referred By Contact Refer red To Contact Diagnoses Aftercare Total Shoulder Arthroplasty Laine Day, P.A.-C. [facility] Procedures PT Ongoing treatment [address] [facility] [place] [address] Referral ID Status Reason Start Date Expiration Date Visits V isits Requested Authorized [id number] Canceled 02/07/2020 02/06/2021 99 99 Encounter Details Date Type Department Care Team Description 04/19/2020 Clinical Support Department of Laine Day, P.A.-C. [address] [place] [phone] Aftercare Total Rehabilitation Arti Lundberg, P.T. [address] [place] [phone] Shoulder Services in [address] [phone] Social History Tobacco Use Types Packs/Day Years [...] Lundberg P.T. 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 PCP - General Family Medicine 11/10/19 12/09/21 documented as of this encounter
--- OUTSIDE RECORDS SUMMARY | 2022-03-12 08:29 | XMS_ITS | Encounter Summary ---
:1940 Author Organization [facility] Address [address] [place] [address] Care Team Providers Name Role Phone Silver Givens M.D., Ph.D. Primary Care Provider Reason for Referral Specialty Diagnoses / Procedures Referred By Contact Refer red To Contact Silver Givens M.D., Ph.D. [address] [phone] Referral ID Status Reason Start Date Expiration Date Visits Requ ested Visits Authorized Encounter Details Date Type Department Care Team Description 09/18/2021 Orders Only [facility] PCP [facility] Jasmyn Givens M.D., Ph.D. [address] [place] [phone] (Wo rk) Social History Tobacco Use [...] as of this encounter Care Teams Manager Printing Relationship Specialty Start Date End Date Silver Givens M.D., Ph.D. PCP - General Family Medicine 11/10/19 12/09/21 documented as of this encounter
--- OUTSIDE RECORDS SUMMARY | 2022-03-12 08:29 | XMS_ITS | Encounter Summary ---
:1940 Author Organization [facility] Address [address] [place] [address] Care Team Providers Name Role Phone Silver Givens M.D., Ph.D. Primary Care Provider Reason for Visit Reason Comments Communication outside referral Encounter Details Date Type Department Care Team Description 09/11/2020 Clinical Department of U[place], Communication Communication General Surgery in [facility], (outside referral) Fabricio Kirk L.P.N. [address] [phone] Social History Tobacco Use Types Packs/Day Years [...] Golytely prep from his pharmacy. 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 - 09/11/2020 2:01 PM CDT [facility] Dr. Dontrell Woodward T# [phone] F#[phone] Anemia, unspecified type (D64.9) Gualac positive stools [...] documented as of this encounter Care Teams Swim Instructor Relationship Specialty Start Date End Date Silver Givens M.D., Ph.D. PCP - General Family Medicine 11/10/19 12/09/21 documented as of this encounter
--- OUTSIDE RECORDS SUMMARY | 2022-03-12 08:29 | XMS_ITS | Encounter Summary ---
:1940 Author Organization [facility] Address [address] [place] [address] Care Team Providers Name Role Phone Silver Givens M.D., Ph.D. Primary Care Provider [phone] Encounter Details Date Type Department Care Team Description 09/29/2020 Surgery Department of Gastroenterology Wood Uribe M.D. COLONOSCOPY-P in [facility] [address] [facility] [address] [place] [phone] (Wo rk) Social History Tobacco Use Types [...] CDTAssociated Order(s): UPPER GI ENDOSCOPY [facility] Patient Name: Obey Vines Procedure Date: [...] Note Initiated On: 09/29/2020 10:14 AM Wood Cra M.D. - 09/29/2020 10:10 AM CDTAssociated Order(s): COLONOSCOPY [facility] Patient Name: Obey Vines Procedure Date: [...] bowel preparation was evaluated using the BBPS (Jackman Bowel Preparation Scale) with scores of: Right [...] Component Value Ref Test Analysis Performed At [facility] Method Time Signature 10/04/2020 ECLR 8:26 [...] Phon e Number [facility] [address] [place] [phone] [facility] [place] [address] UPPER GI ENDOSCOPY (09/29/2020 10:14 AM CDT) Specimen (Source) Anatomical Location Collection Method / Collectio n Time Received Time / Laterality Volume Narrative This result has an attachment that is no t available. Procedure Note Wood Car M.D. - 09/29/2020 10:14 AM CDT [facility] Patient Name: Obey Vines Procedure Date: [...] - 09/29/2020 10:10 AM CDT [facility] Patient Name: Obey Flom Procedure Date: [...] preparation was ev aluated using the BBPS (Jackman Bowel Preparation Scal e) with scores of: [...] documented as of this encounter Care Teams Airway Traffic Controller Relationship Specialty Start Date End Date Silver Givens M.D., Ph.D. PCP - General Family Medicine 11/10/19 12/09/21 documented as of this encounter
--- OUTSIDE RECORDS SUMMARY | 2022-03-12 08:29 | XMS_ITS | Encounter Summary ---
:1940 Author Organization [facility] Address [address] [place] [address] Care Team Providers Name Role Phone Silver Givens M.D., Ph.D. Primary Care Provider [phone] Reason for Visit Reason Comments Pain History left reverse total s houlder 01/25/20 Encounter Details Date Type Department Care Team Description 08/20/2021 Office Visit Department of Marv Dodson Pain Shou lder Left Orthopedic Surgery in M.D. (Primary Dx) [address] [phone] [phone] Social History Tobacco Use Types Packs/Day Years [...] documented as of this encounter Care Teams Paunch Trimmer Relationship Specialty Start Date End Date Silver Givens M.D., Ph.D. PCP - General Family Medicine 11/10/19 12/09/21 documented as of this encounter
--- OUTSIDE RECORDS SUMMARY | 2022-03-12 08:30 | XMS_ITS | Encounter Summary ---
:1940 Author Organization [facility] Address [address] [place] [address] Care Team Providers Name Role Phone Silver Givens M.D., Ph.D. Primary Care Provider [phone] Reason for Referral Outpatient (Routine) - Closed Specialty Diagnoses / Procedures Referred By Contact Refer red To Contact Family Medicine Diagnoses Primary Osteoarthritis Shoulder Left Marv Dodson [facility] [place] [address] [place] [address] Referral ID Status Reason Start Date Expiration Date Visits Requ ested Visits Authorized [id number] Closed 12/15/2019 12/14/2020 1 1 Outpatient (Routine) - Closed Specialty Diagnoses / Procedures Referred By Contact Yeimi pemberton To Contact General Surgery Diagnoses Primary Osteoarthritis Shoulder Left Marv Dodson [facility] [place] [address] [facility] [place] [address] Referral ID Status Reason Start Date Expiration Date Visits Requ ested Visits Authorized [id number] Closed 12/15/2019 12/14/2020 1 1 Outpatient (Routine) - Closed Specialty Diagnoses / Procedures Referred By Contact Refer nilay To Contact Orthopedic Surgery Marv Dodson M. D. [facility] [address] [place] [phone] Referral ID Status Reason Start Date Expiration Date Visits Requ ested Visits Authorized [id number] Closed 12/15/2019 12/14/2020 1 1 Reason for Visit Reason Comments Pain Follow-up Appointment Request (Routine) - Closed Specialty Diagnoses / Procedures Referred By Contact Refer nilay To Contact Orthopedic Surgery Referral ID Status Reason Start Date Expiration Date Visits Requ ested Visits Authorized [id number] Closed 11/26/2019 11/25/2020 1 1 Encounter Details Date Type Department Care Team Description 12/15/2019 Office Visit Department of [place], Primary Osteoa rthritis Orthopedic Surgery in [place] Shoulder Left (Primary [address] Dx) [address] [place], [place] [phone] [phone] Social History Tobacco Use Types Packs/Day Years [...] Name Type Priority Associated Diagnoses Order [facility] Orthopedic Surgery Outpatient Referral Routine Ex [...] RNA, V Asymptomatic (01/22/2020 9:29 AM CDT) [facility] Method Time Signature SARS-CoV-2 Swab, 01/22/2020 [...] is performed using the Aptima SARS-CoV-2 assay ([employer] which has received Emergency Use Authori zation (EUA) by the U.S. Food and Drug Administration. Fact sheets for this Emergency Use Autho rization (EUA) assay can be found at the following links: For Healthcare Providers: https://www.Shopatron a.gov/media/375771/download For Patients: https://www.fda.gov/media/ 987265/download Specimen Anatomical Collection Method Collection Time Receive d Time (Source) Location / / Volume Laterality Varies 01/22/2020 9:29 AM 0 3:53 (Nasopharynx) CDT PM CDT Marv Dodson M.D. LAB MICROBIOLOGY - GENERAL O RDERABLES Performing Organization Address City/State/ZIP Code Phon e Number [facility]- [address] [place] [phone] [facility] [place] [address] System in [address] DX Shoulder Left 2+ Views (12/15/2019 [...] documented as of this encounter Care Teams Acoustical Installer Relationship Specialty Start Date End Date Silver Givens M.D., Ph.D. PCP - General Family Medicine 11/10/19 12/09/21 documented as of this encounter
--- OUTSIDE RECORDS SUMMARY | 2022-03-12 08:30 | XMS_ITS | Encounter Summary ---
:1940 Author Organization [facility] Address [address] [place] [address] Care Team Providers Name Role Phone Elsewhere, Pcp Primary Care Provider Unavailable Reason for Referral Outpatient (Routine) - Closed Specialty Diagnoses / Procedures Referred By Contact Yeimi pemberton To Contact Diagnoses Bursitis Subacromial Left Marv Dodson M.D. [facility] Region Procedures fnx-zlgc-jzbxauba-elbow arthrocentesis: L subacromial bursa [address] [place] [address] Referral ID Status Reason Start Date Expiration Date Visits Requ ested Visits Authorized [id number] Closed 03/01/2019 02/29/2020 1 1 Reason for Visit Appointment Request (Routine) - Closed Specialty Diagnoses / Procedures Referred By Contact Yeimi pemberton To Contact Orthopedic Surgery Referral ID Status Reason Start Date Expiration Date Visits Requ ested Visits Authorized [id number] Closed 01/26/2019 01/26/2020 1 Encounter Details Date Type Department Care Team Description 03/01/2019 Office Visit Department of Marv Dodson Bursitis Subacromial Orthopedic Surgery in Marisela Left (Primary Dx) [place], [place] [address] [place] [address] [phone] Social History Tobacco Use Types Packs/Day Years [...] M.D. - 03/01/2019 9:30 AM CDTAssociated Order(s): job-jjjl-dfnookaj-elbow arthrocentesis: L subacromial bursa Post-Procedure Diagnose(s): Bursitis [...] Name Priority Date/Time Associated Diagnosis Comme nts [place] ARTHCS ASP/INJ Routine 03/01/2019 9:30 AM Bursitis Subacrom ial Results for this MJR JT WO US CDT Left procedure are i n the results section. documented in this encounter Results MI ARTHCS ASP/INJ MJR JT WO US (03/01/2019 [...] documented as of this encounter Care Teams Curbing Stonecutter Relationship Specialty Start Date End Date Elsewhere, Pcp PCP - General Internal Medicine 08/17/18 11/09/19 documented as of this encounter
--- OUTSIDE RECORDS SUMMARY | 2022-03-12 08:30 | XMS_ITS | Encounter Summary ---
:1940 Author Organization [facility] Address [address] [place] [address] Care Team Providers Name Role Phone Elsewhere, Pcp Primary Care Provider Unavailable Reason for Referral Outpatient (Routine) - Closed Specialty Diagnoses / Procedures Referred By Contact Refer red To Contact Diagnoses Pain Shoulder Left Marv Dodson M.D. [facility] Region Procedures mqt-rtaz-wcbyxoom-elbow arthrocentesis: L glenohumeral [address] [place] [address] Referral ID Status Reason Start Date Expiration Date Visits Requ ested Visits Authorized [id number] Closed 09/08/2019 09/07/2020 1 1 Reason for Visit Reason Comments Arthritis Pain Encounter Details Date Type Department Care Team Description 09/08/2019 Office Visit Department of Marv Dodson Pain Shou lder Left Orthopedic Surgery in M.D. (Primary Dx) Fabricio Kirk [place] [address] [facility] [address] [place] [phone] Social History Tobacco Use Types Packs/Day Years [...] M.D. - 09/08/2019 9:15 AM CDTAssociated Order(s): bvw-tztb-hagbfcnr-elbow arthrocentesis: L glenohumeral Post-Procedure Diagnose(s): Pain Shoulder [...] Name Priority Date/Time Associated Diagnosis Comme nts [place] ARTHCS ASP/INJ Routine 09/08/2019 9:15 AM Pain Shoulder Lef t Results for this MJR JRaj WO US CDT procedure are i n the results section. documented in this encounter Results [place] ARTHCS ASP/INJ MJR JT WO US (09/08/2019 [...] documented as of this encounter Care Teams Activities Attendant Relationship Specialty Start Date End Date Elsewhere, Pcp PCP - General Internal Medicine 08/17/18 11/09/19 documented as of this encounter
--- OUTSIDE RECORDS SUMMARY | 2022-03-12 08:30 | XMS_ITS | Encounter Summary ---
:1940 Author Organization [facility] Address [address] [place] [address] Care Team Providers Name Role Phone Silver Givens M.D., Ph.D. Primary Care Provider [phone] Reason for Visit Reason Comments Pre-op Exam 01/25/20- L total Shoulder wi th Dr. Marv Dodson in Outpatient (Routine) - Closed Specialty Diagnoses / Procedures Referred By Contact Refer red To Contact Family Medicine Diagnoses Primary Osteoarthritis Shoulder Left Marv Dodson [facility] [place] [address] [place] [address] Referral ID Status Reason Start Date Expiration Date Visits Requ ested Visits Authorized [id number] Closed 12/15/2019 12/14/2020 1 1 Encounter Details Date Type Department Care Team Description 01/18/2020 Office Visit Department of Family Silver Givens, Preop erative Exam (Primary Dx); Rosalia Kiser M.D., Ph.D. Primary Osteoarthritis Shoulder Left; [facility], in [address] [place] [address] Osteopor osis Without Pathological Fracture; [facility] Deficiency Vitamin D; [place], [place] Atherosclerotic Heart Diseas e Of [place] Coronary Artery Without Angina Pectoris; [address] [place] [address] [address] [phone] Hyperlipidemia; [place] [phone] Peripheral Vascular Disease (HCC); [address] (Work) Stroke Cerebrovascular Accident Personal History; [phone] Hyperglycemia; (Fax) Gastroesophagea l Reflux Disease Without [...] left total shoulder replacement on 01/25/[address] [place] [address] Dodson for left shoulder arthritis. [...] ST Elevation Myocardial Infarction Of Unspecified Site ([facility]) ??? Stroke ([facility]) Past Surgical History: Procedure Laterality Date [...] INTRAOCULAR LENS; Surgeon: Raymundo Muniz M.D.; Location: [facility] OR ??? MOHS SURGERY N/A 06/23/2006 >Mohs [...] file Gets together: Not on file Attends jainism service: Not on file Active member of [...] Vitamin D #5 Atherosclerotic Heart Disease Of [place] Coronary Artery Without Angina Pectoris #6 Hyperlipidemia [...] sults for this PM CDT Disease [place] procedure are in Coronary Artery Without the results Angina Pectoris section. CBC WITH Routine 01/18/2020 11:28 Atherosclerotic Heart Re sults for this DIFFERENTIAL, B AM CDT [place] procedu re are in Coronary Artery Without the results Angina Pectoris section. BASIC METABOLIC Routine 01/18/2020 11:28 Atherosclerotic Heart Results for this PANEL, S/P AM CDT [place] procedure are in Coronary Artery Without the results Angina Pectoris section. documented in this encounter Results ECG 12 Lead (01/18/2020 12:07 PM CDT) P athologist Signature Ventricular Rate 63 BPM MUSE ECG/Min [place] Interval 182 ms MUSE QRSD Interval 86 ms MUSE QT Interval 428 ms MUSE QTC Interval 437 ms MUSE P [place] 51 degrees MUSE R [place] 1 degrees MUSE T Wave [place] 32 degrees MUSE Specimen Anatomical Collection Method [...] CDT eGFR-Black/Afric 72 >=60 01/18/2020 CNFL an Haitian mL/min/BSA 11:49 AM CDT Comment: ----ADDITIONAL INFORMATION---- [...] Organization Address City/State/ZIP Code Phon e Number [address] [address] [place] [address] System [address] CBC with Differential, Blood (01/18/2020 11:28 [...] City/State/ZIP Code Phon e Number [facility]- [address] [place] [address] [place] [address] System [address] documented in this encounter Visit Diagnoses Diagnosis Preoperative Exam - Primary Primary Osteoarthritis Shoulder Left Osteoporosis Without Pathological Fractu re 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 PCP - General Family Medicine 11/10/19 12/09/21 documented as of this encounter
--- OUTSIDE RECORDS SUMMARY | 2022-03-12 08:30 | XMS_ITS | Encounter Summary ---
:1940 Author Organization [facility] Address [address] [place] [address] Care Team Providers Name Role Phone Silver Givens M.D., Ph.D. Primary Care Provider [phone] Reason for Referral Outpatient (Routine) - Closed Specialty Diagnoses / Procedures Referred By Contact Refer red To Contact Orthopedic Surgery Laine Day P.A. -C. [facility] [address] [address] Referral ID Status Reason Start Date Expiration Date Visits Requ ested Visits Authorized [id number] Closed 02/09/2020 02/08/2021 1 1 Reason for Visit Reason Comments Follow-up Arthroplasty Outpatient (Routine) - Closed Specialty Diagnoses / Procedures Referred By Contact Refer red To Contact Orthopedic Surgery Marv Dodson M. D. [address] [phone] Referral ID Status Reason Start Date Expiration Date Visits Requ ested Visits Authorized [id number] Closed 12/15/2019 12/14/2020 1 1 Encounter Details Date Type Department Care Team Description 02/09/2020 Office Visit Department of Day, Laine C, Follow Up E xamination Orthopedic Surgery in [place]. Postoperative Visit Fabricio Kirk [place] [address] (Primary Dx) [address] [place] [phone] [phone] Social History Tobacco Use Types Packs/Day Years [...] documented as of this encounter Care Teams Peer Counselor Relationship Specialty Start Date End Date Silver Givens M.D., Ph.D. PCP - General Family Medicine 11/10/19 12/09/21 documented as of this encounter
--- OUTSIDE RECORDS SUMMARY | 2022-03-12 08:30 | XMS_ITS | Encounter Summary ---
:1940 Author Organization [facility] Address [address] [place] [address] Care Team Providers Name Role Phone Silver Givens M.D., Ph.D. Primary Care Provider [phone] Reason for Visit Reason Comments Surgical Listing 01/25/20 left total shoulder reversal Dr Dodson Encounter Details Date Type Department Care Team Description 12/15/2019 Clinical Communication Department of West, Tanya icaadams Listing Orthopedic Surgery Marisela Fair (01/25/20 left total in [address] Dodson ) [address] [place] [phone] Social History Tobacco Use Types Packs/Day Years [...] interview positive and should be referred tothe [facility] Nurse Line (Phone number ) and this information communicated to clinical team responsible for the operation. Sent to [facility] Nurse Triage No Patient was instructed to [...] as of this encounter Care Teams Crop Adjuster Relationship Specialty Start Date End Date Silver Givens M.D., Ph.D. PCP - General Family Medicine 11/10/19 12/09/21 documented as of this encounter
--- OUTSIDE RECORDS SUMMARY | 2022-03-12 08:30 | XMS_ITS | Encounter Summary ---
:[address] [facility] Address [address] [place] [address] Care Team Providers Name Role Phone Silver Givens M.D., Ph.D. Primary Care Provider [phone] Reason for Visit Physical Therapy (Routine) - Canceled Specialty Diagnoses / Procedures Referred By Contact Refer red To Contact Diagnoses Aftercare Total Shoulder Arthroplasty Laine Day, P.A.-C. [facility] Procedures PT Ongoing treatment [address] [facility] [place] [address] Referral ID Status Reason Start Date Expiration Date Visits V isits Requested Authorized [id number] Canceled 02/07/2020 02/06/2021 99 99 Encounter Details Date Type Department Care Team Description 03/13/2020 Clinical Support Department of Laine Day, P.A.-C. [address] [place] [phone] Aftercare Total Rehabilitation Arti Lundberg, P.T. [address] [place] [phone] Shoulder Services in [address] [phone] Social History Tobacco Use Types Packs/Day Years [...] Lundberg P.T. Department of Rehabilitation Services in [address] [address] Dept: [phone] UTIVE DIRECTOR OF NURSING documented in this encounter Plan of Treatment Not on filedocumented as of this encounter Visit Diagnoses Diagnosis Aftercare Total Shoulder Arthroplasty documented in this encounter Additional Health Concerns Assessment Noted Time PHQ-9 Depression Total Score: 2 03/08/2015 11:16 AM CS T documented as of this encounter Care Teams Architectural Manager Relationship Specialty Start Date End Date Silver Givens M.D., Ph.D. PCP - General Family Medicine 11/10/19 12/09/21 documented as of this encounter
--- OUTSIDE RECORDS SUMMARY | 2022-03-12 08:30 | XMS_ITS | Encounter Summary ---
:1940 Author Organization [facility] Address [address] [place] [address] Care Team Providers Name Role Phone Silver Givens M.D., Ph.D. Primary Care Provider [phone] Reason for Visit Reason Comments Discharge Planning Encounter Details Date Type Department Care Team Description 01/18/2020 Clinical Communication Department of Agnes Jha Disc harge Planning Orthopedic Surgery R.N. in [address] [address] [place], [place] [phone] (Work) [phone] Social History Tobacco Use Types Packs/Day Years [...] yes Apartment/Senior [place]-Rise: no Assisted Living: no Senior Living Facility (SNF): no Other: no 4. Description [...] your support? Patient's spouse Relative's home: yes Senior Living facility (SNF): no (patient needs to call the SNF and give them their name, surgery date, type of surgery and insurance as ther may be a private cost to them and the nursing homes may not hold a spot for them) Home Care: no Outpatient therapy completed at: [facility] Discharge transportation: yes Plan B: What is [...] documented as of this encounter Care Teams Directional Driller Relationship Specialty Start Date End Date Silver Givens M.D., Ph.D. PCP - General Family Medicine 11/10/19 12/09/21 documented as of this encounter
--- OUTSIDE RECORDS SUMMARY | 2022-03-12 08:30 | XMS_ITS | Encounter Summary ---
:1940 Author Organization [facility] Address [address] [place] [address] Care Team Providers Name Role Phone Silver Givens M.D., Ph.D. Primary Care Provider [phone] Reason for Visit Physical Therapy (Routine) - Closed Specialty Diagnoses / Procedures Referred By Contact Refer red To Contact Diagnoses Aftercare Total Shoulder Arthroplasty Laine Day, P.A.-C. [facility] Procedures PT Evaluate and treat 701 [facility] [place] [address] Referral ID Status Reason Start Date Expiration Date Visits Requ ested Visits Authorized [id number] Closed 01/26/2020 01/25/2021 1 1 Encounter Details Date Type Department Care Team Description 02/07/2020 Comprehensive Visit Department of Laine Day, P.A.-C. [address] [place] [phone] Aftercare Total Rehabilitation Arti Lundberg, P.T. [address] [place] [phone] Shoulder Services in [address] [phone] Social History Tobacco Use Types Packs/Day Years [...] AND B / Product Type: Medicare / ADR Sales & Concepts Visit Count: 1 PERTINENT MEDICAL / SURGICAL HISTORY: Patient Active Problem List Diagnosis ??? Atherosclerotic Heart Disease Of [place] Coronary Artery Without Angina Pectoris ??? Stroke [...] REVERSE SHOULDER-; Surgeon: Marv Dodson M.D.; Location: [facility] OR ??? CARPAL TUNNEL [...] INTRAOCULAR LENS; Surgeon: Raymundo Muniz M.D.; Location: [facility] OR ??? EXTRACTION CATARACT WITH INSERTION INTRAOCULAR LENS Left 07/21/2017 Procedure: EXTRACTION CATARACT WITH INSERTION INTRAOCULAR LENS; Surgeon: Raymundo Muniz M.D.; Location: [facility] OR ??? MOHS SURGERY N/A [...] Lundberg P.T. Department of Rehabilitation Services in [address] [address] Dept: [phone] documented in this encounter Plan of Treatment Not on filedocumented as of this encounter Visit Diagnoses Diagnosis Aftercare Total Shoulder Arthroplasty documented in this encounter Additional Health Concerns Assessment Noted Time PHQ-9 Depression Total Score: 2 03/08/2015 11:16 AM CS T documented as of this encounter Care Teams Bacteriologist Industrial Relationship Specialty Start Date End Date Silver Givens M.D., Ph.D. PCP - General Family Medicine 11/10/19 12/09/21 documented as of this encounter
--- OUTSIDE RECORDS SUMMARY | 2022-03-12 08:30 | XMS_ITS | Encounter Summary ---
:1940 Author Organization [facility] Address [address] [place] [address] Care Team Providers Name Role Phone Silver Givens M.D., Ph.D. Primary Care Provider [phone] Reason for Visit Auth/Cert Specialty Diagnoses / Procedures Referred By Contact Refer red To Contact Diagnoses Primary Osteoarthritis Shoulder Left Aftercare Total Shoulder Arthroplasty Primary Osteoarthritis Shoulder Left [M19.012] Procedures ARTHROPLASTY TOTAL REVERSE SHOULDER- Referral ID Status Reason Start Date Expiration Date Visits Requ ested Visits Authorized [id number] 1 1 Encounter Details Date Type Department Care Team Description 01/22/2020 Hospital Encounter Department of West, Primary Osteoarthritis Laboratory Medicine Giulia Fair Shoulder Left in [address] [address] [place], [place] [phone] (Work) [phone] Social History Tobacco Use Types Packs/Day Years [...] RNA, V Asymptomatic (01/22/2020 9:29 AM CDT) [facility] Method Time Signature SARS-CoV-2 Swab, 01/22/2020 [...] is performed using the Aptima SARS-CoV-2 assay ([employer] which has received Emergency Use Authori zation (EUA) by the U.S. Food and Drug Administration. Fact sheets for this Emergency Use Autho rization (EUA) assay can be found at the following links: For Healthcare Providers: https://www.Global Active a.gov/media/740716/download For Patients: https://www.fda.gov/media/ 380592/download Specimen Anatomical Collection Method Collection Time Receive d Time (Source) Location / / Volume Laterality Varies 01/22/2020 9:29 AM 0 3:53 (Nasopharynx) CDT PM CDT Mrav Dodson M.D. LAB MICROBIOLOGY - GENERAL O KIMI Performing Organization Address City/State/ZIP Code Phon e Number [facility] [address] [place] [address] [phone] [facility] [place] [address] System [address] documented in this encounter Visit Diagnoses Diagnosis Primary Osteoarthritis Shoulder Left documented in this encounter Additional Health Concerns Infection Onset Date Last Indicated Resolved Time COVID19 Pending 01/22/2020 01/22/2020 01/22/2020 11:33 PM CDT Assessment Noted Time PHQ-9 Depression Total Score: 2 03/08/2015 11:16 AM CS T documented as of this encounter Care Teams Construction Or Leak Gang Laborer Relationship Specialty Start Date End Date Silver Givens M.D., Ph.D. PCP - General Family Medicine 11/10/19 12/09/21 documented as of this encounter
--- OUTSIDE RECORDS SUMMARY | 2022-03-12 08:30 | XMS_ITS | Encounter Summary ---
:1940 Author Organization [facility] Address [address] [place] [address] Care Team Providers Name Role Phone Silver Givens M.D., Ph.D. Primary Care Provider [phone] Reason for Visit Reason Comments Post-op Outpatient (Routine) - Closed Specialty Diagnoses / Procedures Referred By Contact Refer red To Contact Orthopedic Surgery Laine Day, P.A. -C. [facility] Region [address] [place] [phone] Referral ID Status Reason Start Date Expiration Date Visits Requ ested Visits Authorized [id number] Closed 02/09/2020 02/08/2021 1 1 Encounter Details Date Type Department Care Team Description 03/08/2020 Office Visit Department of Laine Day, Follow Up E xamination Orthopedic Surgery in P.A.-C. Postoperative Visit [place], [place] [facility] (Primary Dx) [address] [place] [phone] Social History Tobacco Use Types Packs/Day Years [...] and these were reviewed with the patient. BROILER OR FRY documented in this encounter Plan of Treatment Not on filedocumented as of this encounter Results DX Shoulder Left 2+ Views (03/08/2020 9:49 AM CHEF BROILER OR FRY) Anatomical Region Laterality Modality Upper Extremity, Shoulder, Musculoskeletal RST LOS, Left Digital Radiography Musculoskeletal ARZ LOS, Muskuloskeletal FLA LOS Specimen (Source) Anatomical Collection Method Collection Time Re ceived Time Location / / Volume Laterality 03/08/2020 9:51 AM CHEF BROILER OR FRY Impressions 03/08/2020 9:54 AM CHEF BROILER OR FRY Left total reverse shoulder arthroplasty hardware components appear well seated and intact. No dislocation. Negative for acute fracture. Aortic calcifications. Thoracic spondylosis. Co mparison December 15, 2019. Narrative 03/08/2020 9:54 AM CHEF BROILER OR FRY EXAM: DX SHOULDER LEFT 2+ VIEWS Procedure [...] as of this encounter Care Teams Machine Woodworking Sander Relationship Specialty Start Date End Date Silver Givens M.D., Ph.D. PCP - General Family Medicine 11/10/19 12/09/21 documented as of this encounter
--- OUTSIDE RECORDS SUMMARY | 2022-03-12 08:30 | XMS_ITS | Encounter Summary ---
:1940 Author Organization [facility] Address [address] [place] [address] Care Team Providers Name Role Phone Silver Givens M.D., Ph.D. Primary Care Provider Reason for Visit Reason Comments Medication Visit recheck Encounter Details Date Type Department Care Team Description 12/14/2019 Office Visit Department of Family Silver Givens, Pain Shoulder Left (Primary Dx); MedicineMargarito M.D., Ph.D. Atherosclerotic Heart Disease Of [place] Coronary Artery Without Angina Pectoris; [facility], in [address] [place] [address] Hyperten sive Heart Disease Without Heart Failure; [place], [facility] Hyperlipidemia; [place], [place] Peripheral Vascular Disease (HCC); [address] [place] [address] [address] [address] Polymyalgia Rheumatica (HCC) [place], [place] [phone] (Work) [phone] Social History Tobacco Use Types Packs/Day Years [...] orthopedic evaluation #2 Atherosclerotic Heart Disease Of [place] Coronary Artery Without Angina Pectoris Continue current [...] Left - Primary 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 PCP - General Family Medicine 11/10/19 12/09/21 documented as of this encounter
--- OUTSIDE RECORDS SUMMARY | 2022-03-12 08:30 | XMS_ITS | Encounter Summary ---
:1940 Author Organization [facility] Address [address] [place] [address] Care Team Providers Name Role Phone Silver Givens M.D., Ph.D. Primary Care Provider [phone] Reason for Visit Reason Comments Med list questions Encounter Details Date Type Department Care Team Description 01/20/2020 Clinical Communication Department of Silver Givens Me d list questions Family Medicine, Marisela, Ph.D. [address], in [address] [address] [facility] [phone] [place], [place] (Work) [phone] Social History Tobacco Use [...] documented as of this encounter Care Teams Fish Housekeeper Relationship Specialty Start Date End Date Silver Givens M.D., Ph.D. PCP - General Family Medicine 11/10/19 12/09/21 documented as of this encounter
--- OUTSIDE RECORDS SUMMARY | 2022-03-12 08:30 | XMS_ITS | Encounter Summary ---
:1940 Author Organization [facility] Address [address] [place] [address] Care Team Providers Name Role Phone Silver Givens M.D., Ph.D. Primary Care Provider [phone] Reason for Visit Reason Comments Covid Screening Encounter Details Date Type Department Care Team Description 11/10/2019 Clinical Communication Department of iMke Montelongo, Covid Screening MedicineMargarito M.D., Ph.D. [facility], [address] [address] [place], [place] [phone] (Work) [phone] Social History Tobacco Use Types Packs/Day Years Used Date Smoking Tobacco: Former Smokeless Tobacco: Never Alcohol Use Standard Drinks/Week Comments No 0 (1 standard drink = 0.6 oz pure alcoho l) Sex Assigned at Date Recorded Not on file documented as of this encounter Miscellaneous Notes Telephone Encounter - Mattie Mensah - 11/10/2019 4:06 PM CDT ([place] and [place] [facility] locations only: If the patient is not having symptoms and is requesting COVID-19 Nasal Swab testing only, use the process listed in the COVID-19 Patient Requesting COVID PCR Test OTG COVID-19 [place] Patient Requesting COVID PCR Test). 1. Do [...] Route reply to: n/a Scheduling Contact Number: [phone] documented in this encounter Plan of Treatment Not on filedocumented as of this encounter Visit Diagnoses Not on filedocumented in this encounter Additional Health Concerns Assessment Noted Time PHQ-9 Depression Total Score: 2 03/08/2015 11:16 AM CS T documented as of this encounter Care Teams Pie Maker Machine Relationship Specialty Start Date End Date Silver Givens M.D., Ph.D. PCP - General Family Medicine 11/10/19 12/09/21 documented as of this encounter
--- OUTSIDE RECORDS SUMMARY | 2022-03-12 08:30 | XMS_ITS | Encounter Summary ---
:1940 Author Organization [facility] Address [address] [place] [address] Care Team Providers Name Role Phone Silver Givens M.D., Ph.D. Primary Care Provider [phone] Encounter Details Date Type Department Care Team [...] documented as of this encounter Care Teams Assembler Ping Pong Table Relationship Specialty Start Date End Date Silver Givens M.D., Ph.D. PCP - General Family Medicine 11/10/19 12/09/21 documented as of this encounter
--- OUTSIDE RECORDS SUMMARY | 2022-03-12 08:30 | XMS_ITS | Encounter Summary ---
:1940 Author Organization [facility] Address [address] [place] [address] Care Team Providers Name Role Phone Silver Givens M.D., Ph.D. Primary Care Provider [phone] Reason for Visit Physical Therapy (Routine) - Canceled Specialty Diagnoses / Procedures Referred By Contact Refer red To Contact Diagnoses Aftercare Total Shoulder Arthroplasty Laine Day, P.A.-C. [facility] Procedures PT Ongoing treatment [address] [facility] [place] [address] Referral ID Status Reason Start Date Expiration Date Visits V isits Requested Authorized [id number] Canceled 02/07/2020 02/06/2021 99 99 Encounter Details Date Type Department Care Team Description 02/28/2020 Clinical Support Department of Laine Day, P.A.-C. [address] [place] [phone] Aftercare Total Rehabilitation Arti Lundberg, P.T. [address] [place] [phone] Shoulder Services in [address] [phone] Social History Tobacco Use Types Packs/Day Years [...] P.T. Department of Rehabilitation Services in [address] [address] Dept: [phone] documented in this encounter Plan of Treatment Not on filedocumented as of this encounter Visit Diagnoses Diagnosis Aftercare Total Shoulder Arthroplasty documented in this encounter Additional Health Concerns Assessment Noted Time PHQ-9 Depression Total Score: 2 03/08/2015 11:16 AM CS T documented as of this encounter Care Teams Egg Setter Relationship Specialty Start Date End Date Silver Givens M.D., Ph.D. PCP - General Family Medicine 11/10/19 12/09/21 documented as of this encounter
--- OUTSIDE RECORDS SUMMARY | 2022-03-12 08:30 | XMS_ITS | Encounter Summary ---
:1940 Author Organization [facility] Address [address] [place] [address] Care Team Providers Name Role Phone Silver Givens M.D., Ph.D. Primary Care Provider Reason for Visit Outpatient (Routine) - Closed Specialty Diagnoses / Procedures Referred By Contact Refer red To Contact General Surgery Diagnoses Primary Osteoarthritis Shoulder Left Marv Dodson [facility] Marisela [address] [place] [address] Referral ID Status Reason Start Date Expiration Date Visits Requ ested Visits Authorized [id number] Closed 12/15/2019 12/14/2020 1 1 Encounter Details Date Type Department Care Team Description 01/18/2020 Telemedicine Department of General Rodger Dodson M.D. [address] [place] [address] Preanesthetic Medical Exam (Primary Dx); Surgery in [place]udelka Lu Abby P, [place] [address] [place] [phone] Primary Osteoarthritis Shoulder Left [place] [address] [place] [address] Social History Tobacco Use Types [...] 01/18/20 regarding surgery on 01/25/20. Surgery Nurse Store Sales Consultant Skin Alert Assessment: Complete this section only [...] flat? No Comment: Do you have any restoration or other objection to having a blood transfusion? No Teaching: Preoperative education was done with (x) patient and his spouse () parent . It was confirmed the patient/family member had received the following preoperative education sheets:Checklist For Surgical Patients ([id number]),???Surgical Site Infections: Reducing Your Risk ([id number]), Speak Up: Antibiotics ([id number]), Acute Pain and the Healing Process ([id number]) with the Integrative Medicine and Health (OS4433-59), and ???Appointments Required Before Your Surgery?? (no MC). These were reviewed in detail. (x) Preoperative medication education provided through [facility] [place] Expert (x) Preoperative COVID-19 testing ordered and discussed with patient (x)Preop OT appt (total shoulders only). Patient filled out TOTAL JOINT ARTHROPLASTY DISCHARGE PLANNING FORM (agH: Forms 08/30/2013 / CF-108). 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 Additional Pamphlets also reviewed: (x) Shoulder Replacement Surgery: Reverse Prosthesis ([id number]) and reviewed teaching points for total shoulders instructions. Patient is ready to learn, no apparent learning barriers were identified. Reviewed diagnosis and treatment plan; patient verbalized understanding through teach back. All questions were answered. Patient has contact information and understands the need to call with any questions or concerns. Post op appointments: 1st po with surgeon or physician records management assistant: (x) jenelle ()TBD documented in this encounter Plan of Treatment Not on filedocumented as of this encounter Visit Diagnoses Diagnosis Preanesthetic Medical Exam - Primary Primary Osteoarthritis Shoulder Left documented in this encounter Additional Health Concerns Assessment Noted Time PHQ-9 Depression Total Score: 2 03/08/2015 11:16 AM CS T documented as of this encounter Care Teams Bankruptcy Law Specialist Relationship Specialty Start Date End Date Silver Givens M.D., Ph.D. PCP - General Family Medicine 11/10/19 12/09/21 documented as of this encounter
--- OUTSIDE RECORDS SUMMARY | 2022-03-12 08:30 | XMS_ITS | Encounter Summary ---
:1940 Author Organization [facility] Address [address] [place] [address] Care Team Providers Name Role Phone Silver Givens M.D., Ph.D. Primary Care Provider [phone] Reason for Visit Auth/Cert Specialty Diagnoses / Procedures Referred By Contact Refer red To Contact Diagnoses Primary Osteoarthritis Shoulder Left Aftercare Total Shoulder Arthroplasty Primary Osteoarthritis Shoulder Left [M19.012] Procedures ARTHROPLASTY TOTAL REVERSE SHOULDER- Referral ID Status Reason Start Date Expiration Date Visits Requ ested Visits Authorized [id number] 1 1 Encounter Details Date Type Department Care Team Description 01/25/2020 Surgery [facility] MAIN OR Marv Dodson, ARTHROPLASTY TOTAL [address] M.D. REVERSE SHOULDER- YARIEL CUMMINS [phone] [address] [phone] YARIEL Cummins [phone] (Wo rk) Social History Tobacco Use Types [...] SHOULDER- Marv Dodson M.D.Jensen, Jill C, P.A.-C. [facility] OR DISCHARGE DIAGNOSIS: right [...] List Diagnosis ??? Atherosclerotic Heart Disease Of [place] Coronary Artery Without Angina Pectoris ??? Stroke [...] left total shoulder replacement on 01/25/[address] [place] [address] Dodson for left shoulder arthritis. [...] INTRAOCULAR LENS; Surgeon: Raymundo Muniz M.D.; Location: [facility] OR ??? EXTRACTION CATARACT WITH INSERTION INTRAOCULAR LENS Left 07/21/2017 Procedure: EXTRACTION CATARACT WITH INSERTION INTRAOCULAR LENS; Surgeon: Raymundo Muniz M.D.; Location: [facility] OR ??? MOHS SURGERY N/A 06/23/2006 [...] file Gets together: Not on file Attends mandaeism service: Not on file Active member of [...] Vitamin D #5 Atherosclerotic Heart Disease Of [place] Coronary Artery Without Angina Pectoris #6 Hyperlipidemia [...] List Diagnosis ??? Atherosclerotic Heart Disease Of [place] Coronary Artery Without Angina Pectoris ??? Stroke [...] REVERSE SHOULDER-; Surgeon: Marv Dodson M.D.; Location: [facility] OR ??? CARPAL TUNNEL [...] INTRAOCULAR LENS; Surgeon: Raymundo Muniz M.D.; Location: [facility] OR ??? EXTRACTION CATARACT WITH INSERTION INTRAOCULAR LENS Left 07/21/2017 Procedure: EXTRACTION CATARACT WITH INSERTION INTRAOCULAR LENS; Surgeon: Raymundo Muniz M.D.; Location: [facility] OR ??? MOHS SURGERY N/A 06/23/2006 >Mohs Micrographic Surgery With Layered Closure. ??? 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 Education with home [...] Time (min): 65 min Ana Villagomez [facility], Third Floor [address] [facility] [address] Dept: [phone] Fortunato Davenport M.D. - 01/25/2020 6:33 PM [...] 04/20/2008 ??? Non-ST Elevation Myocardial Infarction ([facility]) 08/15/2018 ??? Polymyalgia Rheumatica ([facility]) 03/25/2007 ??? Post Operative Nausea/Vomiting ??? ST Elevation Myocardial Infarction Of Unspecified Site ([facility]) ??? Stroke ([facility]) PAST SURGICAL HISTORY Past Surgical History: [...] INTRAOCULAR LENS; Surgeon: Raymundo Muniz M.D.; Location: [facility] OR ??? EXTRACTION CATARACT WITH INSERTION INTRAOCULAR LENS Left 07/21/2017 Procedure: EXTRACTION CATARACT WITH INSERTION INTRAOCULAR LENS; Surgeon: Raymundo Muniz M.D.; Location: [facility] OR ??? 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 Moved in to the town of [facility] with his . Quit smoking 15 [...] List Diagnosis ??? Atherosclerotic Heart Disease Of [place] Coronary Artery Without Angina Pectoris ??? Stroke [...] total shoulder arthroplasty. SURGEON(S) Marv Dodson MD. CRIMINAL INTELLIGENCE SPECIALIST: Laine Day PA-C. I requested Laine to [...] Marv Dodson M.D. CT CT Job ID: [id number] Brief Op Note - Marv Dodson M.D. - 01/25/2020 1:57 PM CDT BRIEF OP NOTE Procedure(s) (LRB): ARTHROPLASTY TOTAL REVERSE SHOULDER- (Left) Surgeon(s) and Role: * Marv Dodson M.D. - Primary * Laine Day P.A.-C. - Pulp Grinder Anesthesia Type General with pain block Pre-operative Diagnosis Primary Osteoarthritis Shoulder Left Post-operative Diagnosis Primary Osteoarthritis Shoulder Left Findings As expected. Complications None Specimens None Drains None Estimated Blood Loss 60 mL Implants Implant Name Type Inv. Item Serial No. Enlisted Advisor Lot No. LRB No. Used Action anatomic reverse shoulder screw syssh Shoulder Implant NA [employer] [id number] Left 1 Implanted BSPLT GLND TRB 15 - SNA - [id number] Shoulder Implant BSPLT GLND TRB 15 NA [employer] [id number] [address] FTHRD LCK 4.5X36 - SNA - [id number] Shoulder Implant SCRW PRT ST FTHRD LCK 4.5X36 NA [employer] [id number] Left 1 Implanted COMP GLND TRB 36 - SNA - [id number] Shoulder Implant COMP GLND TRB 36 NA [employer] [id number] Left 1 Implanted humeral stem Shoulder Implant NA [employer] [id number] Left 1 Implanted SHLDR LNR TRB RVRS +0X36 - SNA - [id number] Shoulder Implant SHLDR LNR TRB RVRS +0X36 NA [employer] [id number] Left 1 Implanted Marv Dodson M.D. documented [...] City/State/ZIP Code Phon e Number [facility]- Xander Mirza [place], [place] [address] [address] [facility] [place] [address] System in [place] [address] documented in this encounter Visit [...] 1342 (Given - Provider: Neptali Boyce APRN, FAST FOOD SUPERVISOR, R.N.) 2 g (rounded from 1.74 g [...] Abarca R.N.)2111 (Rate/Dose Verify - Provider: Desiree hSepard R.N.) 0011 (New Bag - Provider: Desiree [...] mg of calcium, oral, Every 2 hour NV N, indigestion, Starting Fri01/25/20 at 1632, Doses [...] documented as of this encounter Care Teams Brazing Machine Operator Automatic Relationship Specialty Start Date End Date Silver Givens M.D., Ph.D. PCP - General Family Medicine 11/10/19 12/09/21 documented as of this encounter
--- OUTSIDE RECORDS SUMMARY | 2022-03-12 08:30 | XMS_ITS | Encounter Summary ---
:1940 Author Organization [facility] Address [address] [place] [address] Care Team Providers Name Role Phone Silver Givens M.D., Ph.D. Primary Care Provider [phone] Reason for Visit Reason Comments Post Hospital Follow-up [facility] Encounter Details Date Type Department Care Team Description 01/27/2020 Clinical Communication Department of Silver Givens [facility] Family MedicineMarisela, Ph.D. Follow-up ([address]) Clinic, in [address] [address] [facility] [phone] [place], [place] (Work) [phone] Social History Tobacco Use [...] documented as of this encounter Care Teams Nurse Healthcare Manager Relationship Specialty Start Date End Date Silver Givens M.D., Ph.D. PCP - General Family Medicine 11/10/19 12/09/21 documented as of this encounter
--- OUTSIDE RECORDS SUMMARY | 2022-03-12 08:30 | XMS_ITS | Encounter Summary ---
:1940 Author Organization [facility] Address [address] [place] [address] Care Team Providers Name Role Phone Silver Givens M.D., Ph.D. Primary Care Provider [phone] Encounter Details Date Type Department Care Team Description 03/08/2020 Hospital Encounter Department of Laine Day Follo w Up Examination Radiology in [place] P.A.-C. Postoperative Visit [address] [phone] [phone] Social History Tobacco Use Types Packs/Day Years [...] for this 2+ VIEWS (most inpatients AM ELASTIC TAPE INSERTER Examination procedure a re in and all Postoperative Visit the resu lts outpatients) section. documented in this encounter Results DX Shoulder Left 2+ Views (03/08/2020 9:49 AM ELASTIC TAPE INSERTER) Anatomical Region Laterality Modality Upper Extremity, Shoulder, Musculoskeletal RST LOS, Left Digital Radiography Musculoskeletal ARZ LOS, Muskuloskeletal FLA LOS Specimen (Source) Anatomical Collection Method Collection Time Re ceived Time Location / / Volume Laterality 03/08/2020 9:51 AM ELASTIC TAPE INSERTER Impressions 03/08/2020 9:54 AM ELASTIC TAPE INSERTER Left total reverse shoulder arthroplasty hardware components appear well seated and intact. No dislocation. Negative for acute fracture. Aortic calcifications. Thoracic spondylosis. Co mparison December 15, 2019. Narrative 03/08/2020 9:54 AM ELASTIC TAPE INSERTER EXAM: DX SHOULDER LEFT 2+ VIEWS Procedure Note Juan Manuel Pierce M.D. - 03/08/2020Formattin g of this note might be different from the original. EXAM: DX SHOULDER LEFT 2+ VIEWS IMPRESSION: Left total reverse shoulder arthroplasty hardware components appear well seated and intact. No dislocation. Negative for acute fracture. Aortic calcifications. Thoracic spondylosis. Co mparison December 15, 2019. [facility] documented in this encounter Visit Diagnoses Diagnosis Follow Up Examination Postoperative Visi t documented in this encounter Additional Health Concerns Assessment Noted Time PHQ-9 Depression Total Score: 2 03/08/2015 11:16 AM CS T documented as of this encounter Care Teams Senior Advisory Relationship Specialty Start Date End Date Silver Givens M.D., Ph.D. PCP - General Family Medicine 11/10/19 12/09/21 documented as of this encounter
--- OUTSIDE RECORDS SUMMARY | 2022-03-12 08:30 | XMS_ITS | Encounter Summary ---
:1940 Author Organization [facility] Address [address] [place] [address] Care Team Providers Name Role Phone Silver Givens M.D., Ph.D. Primary Care Provider [phone] Reason for Referral Physical Therapy (Routine) - Closed Specialty Diagnoses / Procedures Referred By Contact Refer red To Contact Diagnoses Aftercare Total Shoulder Arthroplasty Laine Day P.A.-C. [facility] Procedures PT Evaluate and treat [address] [place] [address] Referral ID Status Reason Start Date Expiration Date Visits Requ ested Visits Authorized [id number] Closed 01/26/2020 01/25/2021 1 1 Outpatient (Routine) - Closed Specialty Diagnoses / Procedures Referred By Contact Refer red To Contact Orthopedic Surgery Laine Day P.A. -C. 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 [facility], [address] [place] [address] Arthroplasty Third Floor [place], [place] (Primary Dx) [address] [facility] [address] [place], [place] [phone] [address] (Work) [phone] Social History Tobacco Use Types Packs/Day Years [...] SHOULDER- Marv Dodson M.D.Jensen, Jill C, P.A.-C. [facility] OR DISCHARGE DIAGNOSIS: right Reverse TSA [...] List Diagnosis ??? Atherosclerotic Heart Disease Of [place] Coronary Artery Without Angina Pectoris ??? Stroke [...] left total shoulder replacement on 01/25/[address] [place] [address] Dodson for left shoulder arthritis. [...] INTRAOCULAR LENS; Surgeon: Raymundo Muniz M.D.; Location: [facility] OR ??? EXTRACTION CATARACT WITH INSERTION INTRAOCULAR LENS Left 07/21/2017 Procedure: EXTRACTION CATARACT WITH INSERTION INTRAOCULAR LENS; Surgeon: Raymundo Muniz M.D.; Location: [facility] OR ??? MOHS SURGERY N/A [...] file Gets together: Not on file Attends congregational service: Not on file Active member of [...] Vitamin D #5 Atherosclerotic Heart Disease Of [place] Coronary Artery Without Angina Pectoris #6 Hyperlipidemia [...] List Diagnosis ??? Atherosclerotic Heart Disease Of [place] Coronary Artery Without Angina Pectoris ??? Stroke [...] Surgeon: Marv Dodson M.D.; Location: [facility] OR ??? CARPAL TUNNEL RELEASE N/A 02/24/2007 [...] INTRAOCULAR LENS; Surgeon: Raymundo Muniz M.D.; [facility] ??? EXTRACTION CATARACT WITH INSERTION INTRAOCULAR LENS Left 07/21/2017 Procedure: EXTRACTION CATARACT WITH INSERTION INTRAOCULAR LENS; Surgeon: Raymundo Muniz M.D.; Location: [facility] OR ??? MOHS SURGERY N/A 06/23/2006 >Mohs Micrographic Surgery With Layered Closure. ??? 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 Education with home [...] Time (min): 65 min Ana Villagomez [facility], Third Floor [address] [place] [address] Dept: [phone] Fortunato Davenport M.D. - 01/25/2020 6:33 PM [...] ST Elevation Myocardial Infarction Of Unspecified Site ([facility]) ??? Stroke ([facility]) PAST SURGICAL HISTORY Past Surgical History: Procedure [...] INTRAOCULAR LENS; Surgeon: Raymundo Muniz M.D.; Location: [facility] OR ??? EXTRACTION CATARACT WITH INSERTION INTRAOCULAR LENS Left 07/21/2017 Procedure: EXTRACTION CATARACT WITH INSERTION INTRAOCULAR LENS; Surgeon: Raymundo Muniz M.D.; Location: [facility] OR ??? 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 Moved in to the town of [facility] with his . Quit smoking 15 [...] List Diagnosis ??? Atherosclerotic Heart Disease Of [place] Coronary Artery Without Angina Pectoris ??? Stroke [...] total shoulder arthroplasty. SURGEON(S) Marv Dodson MD. FARM MACHINERY ASSEMBLER: Laine Day PA-C. I requested Laine to [...] Marv Dodson M.D. CT CT Job ID: [id number] Brief Op Note - Marv Dodson M.D. - 01/25/2020 1:57 PM CDT BRIEF OP NOTE Procedure(s) (LRB): ARTHROPLASTY TOTAL REVERSE SHOULDER- (Left) Surgeon(s) and Role: * Marv Dodson M.D. - Primary * Laine Day P.A.-C. - Ride Assembly Supervisor Anesthesia Type General with pain block Pre-operative Diagnosis Primary Osteoarthritis Shoulder Left Post-operative Diagnosis Primary Osteoarthritis Shoulder Left Findings As expected. Complications None Specimens None Drains None Estimated Blood Loss 60 mL Implants Implant Name Type Inv. Item Serial No. Clinic Scheduler Lot No. LRB No. Used Action anatomic reverse shoulder screw syssh Shoulder Implant NA [employer] [id number] Left 1 Implanted BSPLT GLND TRB 15 - SNA - [id number] Shoulder Implant BSPLT GLND TRB 15 NA [employer] [id number] [address] FTHRD LCK 4.5X36 - SNA - [id number] Shoulder Implant SCRW PRT ST FTHRD LCK 4.5X36 NA [employer] [id number] Left 1 Implanted COMP GLND TRB 36 - SNA - [id number] Shoulder Implant COMP GLND TRB 36 NA [employer] [id number] Left 1 Implanted humeral stem Shoulder Implant NA [employer] [id number] Left 1 Implanted SHLDR LNR TRB RVRS +0X36 - [facility] - [id number] Shoulder Implant SHLDR LNR TRB RVRS +0X36 NA [employer] [id number] Left 1 Implanted Marv Dodson M.D. documented [...] Organization Address City/State/ZIP Code Phon e Number [facility]- [address] [place], [place] [address] [employer] [place] [address] System in [place] Xander Mirza documented in this encounter Visit Diagnoses Diagnosis Primary Osteoarthritis Shoulder Left - P rimary Aftercare Total Shoulder Arthroplasty Aftercare Total Shoulder Arthroplasty Atherosclerotic Heart Disease Of [place] Coronary Artery Without Angina Pectoris Stroke Cerebrovascular [...] Ba g - Provider: Marv Simmons APRN, TRANSPORTATION ESCORT)1306 (Anesthesia Volume Adjustment - Provider: Neptali Boyce [...] mg of calcium, oral, Every 2 hour ND N, indigestion, Starting Fri01/25/20 at 1632, Doses [...] documented as of this encounter Care Teams Naturopath Relationship Specialty Start Date End Date Silver Givens M.D., Ph.D. PCP - General Family Medicine 11/10/19 12/09/21 documented as of this encounter
--- OUTSIDE RECORDS SUMMARY | 2022-03-12 08:30 | XMS_ITS | Encounter Summary ---
:1940 Author Organization [facility] Address [address] [place] [address] Care Team Providers Name Role Phone Silver Givens M.D., Ph.D. Primary Care Provider [phone] Reason for Visit Auth/Cert Specialty Diagnoses / Procedures Referred By Contact Refer red To Contact Diagnoses Primary Osteoarthritis Shoulder Left Aftercare Total Shoulder Arthroplasty Primary Osteoarthritis Shoulder Left [M19.012] Procedures ARTHROPLASTY TOTAL REVERSE SHOULDER- Referral ID Status Reason Start Date Expiration Date Visits Requ ested Visits Authorized [id number] 1 1 Encounter Details Date Type Department Care Team Description 01/25/2020 Anesthesia Event [facility] Anali Anne M.D. [address] [place] [address] 704 Christa Ball M.D. [address] [place] [phone] [place] [address] Anesthesia Record Procedure Summary Procedure Name [...] h andoff to the receiving staff during [facility] we 1. Identified the patient 2. [...] Butler, Yoo jung, Time: 1327 (created via TABLE MACHINE OPERATOR, PAPER SALES MANAGER, DNAP TABLE MACHINE OPERATOR, C RNA, DNAP procedure documentation); Mask Ventilation: Not attempted; Removal Date: 01/25/20; Removal Time: 1517 (RETIRED) Incision 01/25/20; 1403; 01/25/20 1403 by 01/23/21 141 8 by Shoulder; Left; Freeman beckham Tammara L, [facility] sling; 01/23/21 (Removed R.N. d, Sche [...] Procedure Summary Date: 01/25/20 Room / Location: [address] 1407 / [facility] - Anesthesia Start: 1309 Anesthesia Stop: 1524 [...] Performed by: Anjel Zayas Authorized by: Anali Dosdon M.D. Patient location during procedure: OR / [...] Osteoarthritis Shoulder Left [M19.012] Location: OR 04 [facility] 140 / [facility] - Surgeon: Marv Dodson M.D. Pertinent components of the patient's history including current problem list, medical history, surgical history, family history, social history, medications and allergies were reviewed. Present illnessand pre-op diagnosis were confirmed. The planned surgery / procedure was verified with the patient /legal guardian. The patient's general health condition remains unchanged PROBLEM LIST Relevant Problems CV (+) Atherosclerotic Heart Disease Of [place] Coronary Artery Without Angina Pectoris (+) Peripheral Vascular Disease (HCC) GI (+) Gastroesophageal Reflux Disease Without Esophagitis Other (+) Primary Osteoarthritis Shoulder Left (+) Stroke Cerebrovascular Accident Personal History Hx NSTEMI 08/2018-s/p SHAHAB to LAD-plavix/ASA Labs reviewed EKG- NSR, PVCs, Right BBB S/p Left CEA in past S/p reverse TSA [id number] plus block Hx of memory issues after [...] with patient /legal guardian or through an spanish medical interpreter. Risks/Benefits/Alternatives of Blood transfusion discussed with [...] INJ ANES BRACHIAL PLEX, IA US GUIDE PLC NDL, MC ANE NERVE [...] documented as of this encounter Care Teams Ball Mill Mixer Relationship Specialty Start Date End Date Silver Givens M.D., Ph.D. PCP - General Family Medicine 11/10/19 12/09/21 documented as of this encounter
--- OUTSIDE RECORDS SUMMARY | 2022-03-12 08:30 | XMS_ITS | Encounter Summary ---
:1940 Author Organization [facility] Address [address] [place] [address] Care Team Providers Name Role Phone Silver Givens M.D., Ph.D. Primary Care Provider [phone] Encounter Details Date Type Department Care Team Description 12/15/2019 Hospital Encounter Department of [place], Primary Osteoarthritis Radiology in Fabricio Fair M.D. [place], [place] 701 [facility] [address] [place] [phone] Social History Tobacco Use Types Packs/Day Years [...] documented as of this encounter Care Teams Geology Professor Relationship Specialty Start Date End Date Silver Givens M.D., Ph.D. PCP - General Family Medicine 11/10/19 12/09/21 documented as of this encounter
--- OUTSIDE RECORDS SUMMARY | 2022-03-12 08:30 | XMS_ITS | Encounter Summary ---
:1940 [address] [facility] Address [address] [place] [address] Care Team Providers Name Role Phone Silver Givens M.D., Ph.D. Primary Care Provider [phone] Reason for Visit Reason Comments Med Refill Encounter Details Date Type Department Care Team Description 03/07/2020 Refill Department of Family Medicine, Mike Givens M.D., Med Refill [facility], in [address] [phone] (Wo rk) Social History Tobacco Use Types [...] mouth daily. Pharmacy (include location): [facility] Patient is out of medication OR DIRECTOR INSIGHT documented in this encounter Plan of Treatment Not on filedocumented as of this encounter Visit Diagnoses Not on filedocumented in this encounter Additional Health Concerns Assessment Noted Time PHQ-9 Depression Total Score: 2 03/08/2015 11:16 AM CS T documented as of this encounter Care Teams Snaker Relationship Specialty Start Date End Date Silver Givens M.D., Ph.D. PCP - General Family Medicine 11/10/19 12/09/21 documented as of this encounter
--- OUTSIDE RECORDS SUMMARY | 2022-03-12 08:31 | XMS_ITS | Encounter Summary ---
:1940 Author Organization [facility] Address [address] [place] [address] Care Team Providers Name Role Phone Unavailable Primary Care Provider Unavailable Encounter Details Date Type Department Care Team Description 07/21/2017 Surgery [facility] NEIL OR Raymundo Muniz, EXTRACTION CATARACT [address] [place] [address] BLVD [place] WITH INSERTION [place], [place] [address] INTRAOCULAR LENS [address] [place], [place] [phone] (Wo rk) Social History Tobacco Use [...] from the original note were not included. [facility] Cataract/Trabeculectomy Discharge Instructions, Eye Care When you [...] (Month DD, YYYY) Time (hh:mm) Ophthalmology at [facility] Phone Numbers: Office: [phone] Toll Free: [phone] ext. [phone] ??2015 [facility] Page 1 of 2 [id number] When you leave the hospital after your [...] tartrate 0 06/23/201708/15 (for_LOPRESSOR) 25 mg tablet fwomfuikmaoa-zrkmfwkw-hb Take 1 tablet by 0 06/2508/15/2018 rrous [...] Raymundo Muniz M.D. - 07/07/2017 9:35 AM COLD PATCHER History of present illness: The patient is [...] Implant Name Type Inv. Item Serial No. Client Server Developer Lot No. LRB No. Used Action [id number] Ocular Lens [id number] Ann Left 1 Implanted Raymundo Muniz M.D. [...]
--- OUTSIDE RECORDS SUMMARY | 2022-03-12 08:31 | XMS_ITS | Encounter Summary ---
:1940 Author Organization [facility] Address [address] [place] [address] Care Team Providers Name Role Phone Elsewhere, Pcp Primary Care Provider Unavailable Reason for Visit Appointment Request (Routine) - Closed Specialty Diagnoses / Procedures Referred By Contact Refer red To Contact Orthopedic Surgery Referral ID Status Reason Start Date Expiration Date Visits Requ ested Visits Authorized [id number] Closed 11/10/2018 11/10/2019 1 1 Encounter Details Date Type Department Care Team Description 11/25/2018 Office Visit Department of Marv Dodson, Bursitis (Primary Dx); Orthopedic Surgery in [place] Pain Shoulder Left [address] [phone] Social History Tobacco Use Types Packs/Day Years [...] M.D. - 11/25/2018 8:45 AM CDTAssociated Order(s): umh-derb-lvrzytiu-elbow arthrocentesis: L subacromial bursa Post-Procedure Diagnose(s): Bursitis; [...] Name Priority Date/Time Associated Diagnosis Comme nts DC ARTHCS ASP/INJ Routine 11/25/2018 8:45 AM Bursitis Results for this MJR JT WO US CDT Pain Shoulder Left procedure are in the results section. documented in this encounter Results DC ARTHCS ASP/INJ MJR JT WO US (11/25/2018 [...] documented as of this encounter Care Teams Rigger Apprentice Relationship Specialty Start Date End Date Elsewhere, Pcp PCP - General Internal Medicine 08/17/18 11/09/19 documented as of this encounter
--- OUTSIDE RECORDS SUMMARY | 2022-03-12 08:31 | XMS_ITS | Encounter Summary ---
:1940 Author Organization [facility] Address [address] [place] [address] Care Team Providers Name Role Phone Elsewhere, Pcp Primary Care Provider Unavailable Encounter Details Date Type Department Care Team Description 08/28/2018 [facility] Laila Loco Memory (Primary [facility]) [facility] [address] [place] [address] [id number] Social History Tobacco Use Types Packs/Day Years [...] documented as of this encounter Care Teams Internet Sales Associate Relationship Specialty Start Date End Date Elsewhere, Pcp PCP - General Internal Medicine 12/10/21 documented as of this encounter
--- OUTSIDE RECORDS SUMMARY | 2022-03-12 08:31 | XMS_ITS | Encounter Summary ---
:1940 Author Organization [facility] Address [address] [place] [address] Care Team Providers Name Role Phone Unavailable Primary Care Provider Unavailable Encounter Details Date Type Department Care Team Description 08/13/2018 Hospital Encounter Department of [facility] [place] [address] [facility] [address] [place] [address] [address] [address] [place], [place] [phone] (Work) [phone] Social History Tobacco Use Types Packs/Day Years [...] tartrate 0 06/23/201708/15 (for_LOPRESSOR) 25 mg tablet dkwcwevlvxpu-ooevflkc-ckx Take 1 tablet by 0 06/0608/15/2018 ifrah [...]
--- OUTSIDE RECORDS SUMMARY | 2022-03-12 08:31 | XMS_ITS | Encounter Summary ---
:1940 Author Organization [facility] Address [address] [place] [address] Care Team Providers Name Role Phone Unavailable Primary Care Provider Unavailable Reason for Visit Reason Comments Nausea Pt presents with nausea, gen eralized weakness and new confusion per family. Encounter Details Date Type Department Care Team Description 08/14/2018 - Emergency [place] Edgar Dodson Non-ST Iraida vation 08/15/2018 Emergency Department Titi Nunez M.D. 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 Will give pt asa 324 mg [...] CDT) P athologist Signature Source Midstream 08/15/2018 [facility] 12:16 AM [employer] [facility] Clarity Clear Clear 08/15/2018 [facility] 12:16 AM [facility] [employer] [facility] Color Yellow 08/15/2018 [facility] 12:16 AM [employer] LAB Comment: ----REFERENCE VALUE---- Colorless Yellow Isabel Blood Negative Negative 08/15/2018 12:16 AM [place] [employer] [facility] Nitrite Negative Negative 08/15/2018 12:16 AM [place] [employer] [facility] Leukocyte Esterase Moderate (A) Negative 08/15/2018 12:1 6 AM [facility] [employer] [facility] Protein 30 (A) mg/dL 08/15/2018 12:16 AM [facility] [employer] [facility] Comment: ----REFERENCE VALUE---- Negative Trace Glucose Negative Negative mg/dL 08/15/2018 12:16 AM [facility] Ketones, QI(U) 15 (A) Negative mg/dL 08/15/2018 12:16 AM [facility] Bilirubin Negative Negative 08/15/2018 12:16 AM [facility] pH 6.0 5.0 - 8.0 08/15/2018 12:17 AM [facility] Specific Mayflower 1.020 1.001 - 1.035 08/15/2018 12:17 AM [facility] Urobilinogen 0.2 0.2 - 1.0 mg/dL 08/15/2018 12:17 AM [facility] White Blood Cells 21-30 (A) /hpf 08/15/2018 12:55 AM [facility] Comment: ----REFERENCE VALUE---- Males: 0-3 Females: 0-10 Unknown: 0-10 Red Blood Cells 3-10 (A) 0 - 2 /hpf 08/15/2018 12:55 [facility] [employer] [facility] Dysmorphic Red Blood <=25 <=25 % 08/15/2018 12:55 [facility] Cells [facility] Hyaline Casts 1-3 /lpf 08/15/2018 12:55 [facility] Crystals Amorphous (A) None Seen 08/15/2018 12:55 [facility] /lpf [facility] Squamous Cells Occ-3 /hpf 08/15/2018 12:55 [facility] [facility] ANKITA [facility] Transitional Cells Occ-3 (A) None Seen 08/15/2018 12:55 [facility] Specimen (Source) Anatomical Collection Method Collection Time Re ceived Time Location / / Volume Laterality Urine (Urine, 08/15/2018 08/15/2018 12: 13 Clean Catch) [facility] Edgar Dodson Jr., M.D. LAB URINE ORDERABLES Performing Organization Address City/State/ZIP Code Phon e Number [facility]- [id number] [place] [address] [place] [facility] DX Chest Portable 1 View (08/14/2018 [...] Dodson Jr., M.D. IMG DIAGNOSTIC IMAGING P [facility] CRP (C-Reactive Protein) (08/14/2018 10:34 PM CDT) athologist Signature C-Reactive 0.9 <=8.0 mg/L 08/14/2018 [facility] Protein (CRP), 11:05 PM CDT [facility] [place] [facility] Specimen Anatomical Collection Method Collection Time Receive d Time (Source) Location / / Volume Laterality Blood (Blood, 08/14/2018 10:34 08/14/2018 Venous) PM CDT 10:37 PM CDT Edgar Dodson Jr., M.D. LAB BLOOD ADD-ON Performing Organization Address City/State/ZIP Code Phon e Number [facility]- [address] [place] [address] [place] [address] [place] [facility] APTT (Activated Partial Thromboplastin Time) (08/14/2018 10:33 PM CDT) athologist Signature APTT, P 27.4 23.7 - 36.1 08/14/2018 [facility] sec 11:54 PM CDT [facility] LAB Specimen Anatomical Collection Method Collection Time Receive d Time (Source) Location / / Volume Laterality Blood (Blood, 08/14/2018 10:33 08/14/2018 Venous) PM CDT 11:45 PM CDT Edgar Dodson Jr., M.D. LAB BLOOD ADD-ON Performing Organization Address [facility] Phon e Number [address] [address] [place] [facility] Lipase (08/14/2018 10:33 PM CDT) athologist Signature Lipase, P 31 13 - 60 U/L 08/14/2018 [facility] 11:04 PM CDT [facility] LAB Specimen Anatomical Collection Method Collection Time Receive d Time (Source) Location / / Volume Laterality Blood (Blood, 08/14/2018 10:33 08/14/2018 Venous) PM CDT 10:37 PM CDT Edgar Dodson Jr., M.D. LAB BLOOD ADD-ON Performing Organization Address [facility] Phon e Number [address] [address] [place] [facility] Methylmalonic Acid (MMA), Quantitative (08/14/2018 10:33 PM CDT) [facility] gist Method Time Signature Methylmalonic 0.19 <=0.40 08/18/2018 [facility] Acid, QN, S nmol/mL 8:13 AM CDT LABORATORIES [facility] Comment: ----ADDITIONAL INFORMATION---- This test was developed and its performa nce characteristics determined by [facility] in a manner consistent with CLIA [...] [facility]/State/ZIP Code Phon e Number [facility] LABORATORIES - [address] [place], [place] [address] [facility] Vitamin B12 Assay (08/14/2018 10:33 PM CDT) athologist Signature Vitamin B12 [phone] 08/15/2018 [facility] Assay, S ng/L 2:49 PM CDT [facility] Comment: Biotin has been identified by [...] M.D. LAB BLOOD ADD-ON Performing Organization Address City/[facility] Code Phon e Number [facility] [place] [address] [facility] [address] [facility] LAB (ABNORMAL) Troponin T, 5th Generation (08/14/2018 10:33 PM CDT) athologist Signature Troponin T, 222 (H) <=15 ng/L 08/14/2018 [facility] 5th gen 10:56 PM CDT [facility] Comment: Consider acute myocardial injury Biotin [...] Organization Address City/State/ZIP Code Phon e Number [address] [address] [place] [facility] Thyroid Function [place] (08/14/2018 10:33 PM CDT) athologist Signature TSH, Sensitive 1.9 0.3 - 4.2 08/14/2018 [facility] mIU/L 11:07 PM CDT [facility] Comment: Biotin has been [...] M.D. LAB BLOOD ADD-ON Performing Organization Address City/State/[facility] Code Phon e Number [address] [address] [place] [facility] (ABNORMAL) Comprehensive Metabolic Panel (08/14/2018 10:33 PM CDT) athologist Signature Potassium, P 4.1 3.6 - 5.2 08/14/2018 [facility] mmol/L 11:04 PM CDT [facility] Sodium, P 139 135 - 145 08/14/2018 [facility] mmol/L 11:04 PM CDT [facility] Chloride, P 98 98 - 107 08/14/2018 [facility] mmol/L 11:04 PM CDT [facility] Bicarbonate, P 26 22 - 29 08/14/2018 [facility] mmol/L 11:04 PM CDT [facility] Anion Gap, P 15 7 - 15 08/14/2018 [facility] 11:04 PM CDT [facility] BUN (Blood Urea 15 8 - 24 08/14/2018 [facility] Nitrogen), P mg/dL 11:04 PM CDT [facility] Creatinine 1.07 0.74 - 08/14/2018 [facility] 1.35 mg/dL 11:04 PM [facility] LAB eGFR-Black/Afri 77 >=60 08/14/2018 [facility] can Singaporean mL/min/BSA 11:04 PM [facility] Comment: ----ADDITIONAL INFORMATION---- Estimated GFR calculated using the 2009 CKD_EPI creatinine equation. eGFR Non-Black/ 67 >=60 mL/min/BSA 08/14/2018 11:04 PM [facility] Singaporean [facility] Comment: ----ADDITIONAL INFORMATION---- Estimated GFR calculated using the 2009 CKD_EPI creatinine equation. Calcium, Total, P 10.2 8.8 - 10.2 08/14/2018 11:04 PM [facility] mg/dL [facility] Glucose, P 120 70 - 140 mg/dL 08/14/2018 11:04 PM [facility] Protein, Total, P 8.0 (H) 6.3 - 7.9 g/dL 08/14/2018 11:04 PM [facility] Albumin, P 4.9 3.5 - 5.0 g/dL 08/14/2018 11:04 PM [facility] Aspartate 54 (H) 8 - 48 U/L 08/14/2018 11:04 PM [facility] IC Aminotransferase (AST), P [facility] LAB Alkaline Phosphatase, P 173 (H) 40 - 129 U/L 08/14/2018 11 :04 PM [facility] Alanine Aminotransferase 29 7 - 55 U/L 08/14/2018 11: 04 PM [facility] (ALT), P [facility] Bilirubin, Total, P 1.7 (H) <=1.2 mg/dL 08/14/2018 11:04 P M [facility] Specimen Anatomical Collection Method Collection Time Receive d Time (Source) Location / / Volume Laterality Blood (Blood, 08/14/2018 10:33 08/14/2018 Venous) PM CDT 10:37 PM CDT Hernández V. West Jr., M.D. LAB BLOOD ADD-ON Performing Organization Address City/State/ZIP Code Phon e Number [facility]- [id number] [address] [place] [facility] (ABNORMAL) CBC with Differential, Blood (08/14/2018 10:33 PM CDT) [facility] Method Time Signature Hemoglobin 15.8 13.2 - 08/14/2018 [facility] 16.6 g/dL 10:43 PM CDT [facility] Hematocrit 46.1 38.3 - 08/14/2018 [facility] 48.6 % 10:43 PM CDT [facility] Erythrocytes 5.19 4.35 - 08/14/2018 [facility] 5.65 10:43 PM CDT HEALTH x10(12)/L [facility] MCV 88.8 78.2 - 08/14/2018 [facility] 97.9 fL 10:43 PM CDT [facility] RBC Distrib Width 13.8 11.8 - 08/14/2018 [facility] 14.5 % 10:43 PM CDT [facility] Platelet Count 218 135 - 317 08/14/2018 [facility] x10(9)/L 10:43 PM CDT [facility] Leukocytes 8.6 3.4 - 9.6 08/14/2018 [facility] x10(9)/L 10:43 PM CDT [facility] Neutrophils 7.44 (H) 1.56 - 08/14/2018 [facility] 6.45 10:43 PM CDT HEALTH x10(9)/L [facility] Lymphocytes 0.88 (L) 0.95 - 08/14/2018 [facility] 3.07 10:43 PM CDT HEALTH x10(9)/L [facility] LAB Monocytes 0.21 (L) 0.26 - 08/14/2018 [facility] 0.81 10:43 PM CDT HEALTH x10(9)/L [facility] Eosinophils 0.02 (L) 0.03 - 08/14/2018 [facility] 0.48 10:43 PM CDT [facility]ALTH x10(9)/L [facility] Basophils 0.01 0.01 - 08/14/2018 [facility] 0.08 10:43 PM CDT HEALTH x10(9)/L [facility] [place] [facility] Specimen Anatomical Collection Method Collection Time Receive d Time (Source) Location / / Volume Laterality Blood (Blood, 08/14/2018 10:33 08/14/2018 Venous) PM CDT 10:37 PM CDT Edgar Dodson Jr., M.D. LAB BLOOD ADD-ON Performing Organization Address City/State/ZIP Code Phon e Number [facility]- [address] [address] [place] [address] Head without IV Contrast (08/14/2018 [...] Signature Ventricular Rate 63 BPM MUSE ECG/Min VA Interval 174 ms MUSE QRSD Interval 84 ms MUSE QT Interval 438 ms MUSE QTC Interval 448 ms MUSE P [place] 47 degrees MUSE R [place] -2 degrees MUSE T Wave [place] 54 degrees MUSE Specimen Anatomical Collection Method [...] - Provider: Katia Virk R.N. - Comment: [id number]) 0-40 Units/kg/hr ? 66.1 kg Dosing weight [...]
--- OUTSIDE RECORDS SUMMARY | 2022-03-12 08:31 | XMS_ITS | Encounter Summary ---
:1940 Author Organization [facility] Address [address] [place] [address] Care Team Providers Name Role Phone Unavailable Primary Care Provider Unavailable Encounter Details Date Type Department Care Team Description 08/15/2018 Surgery Division of Cardiovascular Jacques Barraza , Coronary Angiography Diseases in [facility] [address] [facility] [address] [place] [phone] Social History Tobacco Use Types Packs/Day Years [...] Case IDs Date Procedure Surgeon Location Status [id number] 08/15/18 Coronary Angiography Jacques Barraza M.D. RST [...] started on heparin drip and transferred to [facility] for further management of NSTEMI. He [...] exam, and recommendations by Dr. Meier. #1 Wyu-YU-lheteeoip myocardial infarction Mr. Vines will continue with [...] with the plan. CT CT Job ID: [id number]/[id number] documented in this encounter H&P Notes Tom [...] intravenous heparin. He was taken to the supervisor laboratory this morning, after informed consent was obtained, [...] by Dr. Monk and Dr. Corral. #1 Vsx-YM-uhbhtiwyr myocardial infarction Mr. Vines was preloaded with [...] with the plan. CT CT Job ID: [id number] TTET Reji Espitia M.D. - 08/15/2018 8:47 [...] focal neurologic complaints. In the ED in [place], he was noted to have stable vitals [...] on heparin gtt prior to transfer to [facility]. Upon arrival, he is hemodynamically stable [...] focal neurologic complaints. In the ED in [place], he was noted to have stable vitals [...] on heparin gtt prior to transfer to [facility]. Upon arrival, he is hemodynamically stable [...] male with a history of CAD s/p SC and stent placement (mid-RCA, 2011), hyperlipidemia, and [...] ED physician spoke with Dr. Calderon at [facility] for recommendations and was suggested to treat his NSTEMI with aspirin 324 mg oral, Plavix 300 mg oral, and start a heparin bolus and drip. The was then transferred to [facility] via ambulance for further management of [...] GERD, hyperlipidemia, ischemic stroke, CAD status post SC and stent placement - Surgical history: Carotid [...] ASSESSMENT/PLAN #1 NSTEMI #2 Coronary artery disease, SC s/p stent to mid-RCA (2011) #3 Ischemic stroke s/p carotid enterectomy #4 Hyperlipidemia Mr. Vines is a 78 y/o male with a history of CAD s/p SC and stent placement (mid- RCA, 2011) and [...] Summary: Education complete. Pt will d/c to [facility]. No further questions CARDIOVASCULAR - ADULT ??? [...] Implant Name Type Inv. Item Serial No. Supercharger Repair Supervisor Lot No. LRB No. Used Action STNT SYNERGY SHAHAB [id number] - [id number] Cardiac Stent STNT SYNERGY SHAHAB [id number] BiOWiSH [id number] N/A 1 Implanted Antiplatelet regimen: Aspirin 81 [...] Jung Castro M.D., M.P.H. Interventional and Structural Plant Assigner [facility] 08/15/18 9:53 AM documented in [...] started on heparin drip and transferred to [facility] for further management of NSTEMI. He [...] Basic Metabolic Panel (08/16/2018 7:44 AM CDT) [facility] Method Time Signature Potassium, S 4.2 3.6 - 5.2 08/16/2018 [facility] mmol/L 8:51 AM CDT [facility] - [facility] Sodium, S 141 135 - 145 08/16/2018 [facility] mmol/L 8:51 AM CDT [facility] Chloride, S 102 98 - 107 08/16/2018 [facility] mmol/L 8:[address] [facility] Bicarbonate, S 23 22 - 29 08/16/2018 [facility] mmol/L 8:[address] [facility] Anion Gap 16 (H) 7 - 15 08/16/2018 [facility] 8:[address] [facility] BUN (Blood Urea 16 8 - 24 08/16/2018 [facility] Nitrogen), S mg/dL 8:51 AM CDT [facility] Creatinine 1.18 0.74 - 08/16/2018 [facility] 1.35 mg/dL 8:[address] [facility] eGFR-Non 59 (L) >=60 08/16/2018 [facility] Black/ mL/min/BSA 8:51 AM CDT LABORATORIES [facility] Comment: ----ADDITIONAL INFORMATION---- Estimated GFR calculated using the 2009 CKD_EPI creatinine equation. eGFR-Black/ 68 >=60 mL/min/BSA 08/16/2018 8:51 [facility] Comment: ----ADDITIONAL INFORMATION---- Estimated GFR calculated using the 2009 CKD_EPI creatinine equation. Calcium, Total, S 9.5 8.8 - 10.2 mg/dL 08/16/2018 8:51 AM [facility] Glucose, S 100 70 - 140 mg/dL 08/16/2018 8:51 AM [facility] S Specimen Anatomical Collection Method Collection Time Receive d Time (Source) Location / / Volume Laterality Blood (Blood, 08/16/2018 7:44 AM 08/17/19 19 8:16 Venous) CDT AM CDT Tom Johnson M.D., Ph.D. LAB BLOOD ADD-ON Performing Organization Address City/State/ZIP Code Phon e Number [facility] - [address] [place], [place] [address] [facility] CBC with Differential, Blood (08/16/2018 7:44 AM CDT) [facility] gist Method Time Signature Hemoglobin 15.2 13.2 - 08/16/2018 [facility] 16.6 g/dL 8:[address] [facility] Hematocrit 44.7 38.3 - 08/16/2018 [facility] 48.6 % 8:21 AM CDT [facility] Erythrocytes 4.99 4.35 - 08/16/2018 [facility] 5.65 8:21 AM CDT LABORATORIES - x10(12)/L [facility] MCV 89.6 78.2 - 08/16/2018 [facility] 97.9 fL 8:21 AM CDT [facility] RBC Distrib Width 14.1 11.8 - 08/16/2018 [facility] 14.5 % 8:21 AM CDT [facility] Platelet Count 231 135 - 317 08/16/2018 [facility] x10(9)/L 8:21 AM CDT [facility] Leukocytes 8.1 3.4 - 9.6 08/16/2018 [facility] x10(9)/L 8:21 AM CDT [facility] Neutrophils 5.20 1.56 - 08/16/2018 [facility] 6.45 8:21 AM CDT LABORATORIES - x10(9)/L [facility] Lymphocytes 2.03 0.95 - 08/16/2018 [facility] 3.07 8:21 AM CDT LABORATORIES - x10(9)/L [facility] Monocytes 0.60 0.26 - 08/16/2018 [facility] 0.81 8:21 AM CDT LABORATORIES - x10(9)/L [facility] Eosinophils 0.20 0.03 - 08/16/2018 [facility] 0.48 8:21 AM CDT LABORATORIES - x10(9)/L [facility] Basophils 0.04 0.01 - 08/16/2018 [facility] 0.08 8:21 AM CDT LABORATORIES - x10(9)/L [facility] Specimen Anatomical Collection Method Collection Time Receive d Time (Source) Location / / Volume Laterality Blood (Blood, 08/16/2018 7:44 AM 08/17/19 19 8:16 Venous) CDT AM CDT Tom Johnson M.D., Ph.D. LAB BLOOD ADD-ON Performing Organization Address City/State/ZIP Code Phon e Number [facility]ATORIES - [address] [place], [place] [address] [facility] (ABNORMAL) Troponin T, 6H, 5th Gen (08/15/2018 12:37 PM CDT) Patholo gist Method Time Signature Troponin T, 6 433 (H) <=15 ng/L 08/15/2018 [facility] hr, 5th gen 1:09 PM CDT [facility] Comment: Consider acute myocardial injur y 6H Delta 127 ng/L 08/15/2018 1:09 PM CDT [facility] 6H Delta Interp Changing 08/15/2018 1:09 PM CDT [facility] Comment: Evaluate for acute myocardial i njury Specimen Anatomical Collection Method Collection Time Receive d Time (Source) Location / / Volume Laterality Blood 08/15/2018 12:37 08/15/2018 PM CDT 12:43 PM CDT Darvin Corral M.D. LAB BLOOD TROPONIN Performing Organization Address City/[facility] Code Phon e Number [facility] - [address] Heparin Anti-Xa Assay (08/15/2018 11:00 AM CDT) P athologist Signature Heparin 1.62 IU/mL 08/15/2018 [facility] Anti-Xa, P 12:[address] [facility] Comment: UFH therapeutic range: ?? 0.30-0.70 [...] LAB BLOOD NON ADD-ON Performing Organization Address City/[facility] Code Phon e Number [facility] LABORATORIES - [address] CORONARY ANGIOGRAPHY, STENT PLACEMENT, PERCUTANEOUS CORONARY [...] ST Clotting Time, sec 9:41 AM CDT [facility] POCT INPATIENT LABS Specimen Anatomical Collection Method Collection Time Receive d Time (Source) Location / / Volume Laterality Blood 08/15/2018 9:35 AM 9 9:41 CDT AM CDT Unknown Provider LAB POCT ORDERABLES - DEVICE Performing Organization Address City/[facility]/ZIP Code Phon e Number POC RST [facility] INPATIENT LABS 200 [facility] N [address] (ABNORMAL) ACT (Activated Clotting Time), POCT (08/15/2018 9:14 AM CDT) P athologist Signature Activated 168 (H) 84 - 139 08/15/[address] Clotting Time, sec 9:18 AM CDT [facility] POCT INPATIENT LABS Specimen Anatomical Collection Method Collection Time Receive d Time (Source) Location / / Volume Laterality Blood 08/15/2018 9:14 AM 9 9:18 CDT AM CDT Unknown Provider LAB POCT ORDERABLES - DEVICE Performing Organization Address City/[facility]/ZIP Code Phon e Number POC [facility] INPATIENT LABS [address] [facility] N [address] Bilirubin, Direct (08/15/2018 6:00 AM CDT) P athologist Signature Bilirubin, 0.2 0.0 - 0.3 08/15/2018 [facility] Direct, S mg/dL 8:[address] [facility] Specimen Anatomical Collection Method Collection Time Receive d Time (Source) Location / / Volume Laterality Blood (Blood, 08/15/2018 6:00 AM 08/16/19 19 6:20 Venous) CDT AM CDT Vaughn Rader M.D., Ph.D. LAB BLOOD ADD-ON Performing Organization Address City/State/ZIP Code Phon e Number [facility] - [address] [place], [place] [address] [facility] (ABNORMAL) Comprehensive Metabolic Panel (08/15/2018 6:00 AM CDT) [facility] Method Time Signature Potassium, S 4.5 3.6 - 5.2 08/15/2018 [facility] mmol/L 8:[address] [facility] Sodium, S 144 135 - 145 08/15/2018 [facility] mmol/L 8:[address] [facility] Chloride, S 102 98 - 107 08/15/2018 [facility] mmol/L 8:[address] [facility] Bicarbonate, S 24 22 - 29 08/15/2018 [facility] mmol/L 8:[address] [facility] Anion Gap 18 (H) 7 - 15 08/15/2018 [facility] 8:[address] [facility] BUN (Blood Urea 14 8 - 24 08/15/2018 [facility] Nitrogen), S mg/dL 8:[address] [facility] Creatinine 1.14 0.74 - 08/15/2018 [facility] 1.35 mg/dL 8:[address] [facility] eGFR-Non 62 >=60 08/15/2018 [facility] Black/ mL/min/BSA 8:25 AM CDT LABORATORIES [facility] Comment: ----ADDITIONAL INFORMATION---- Estimated GFR calculated using the 2009 CKD_EPI creatinine equation. eGFR-Black/ 71 >=60 mL/min/BSA 08/15/2018 8:25 [facility] [place] CDT [facility]ATOR[facility] Comment: ----ADDITIONAL INFORMATION---- Estimated GFR calculated using the 2009 CKD_EPI creatinine equation. Calcium, Total, S 9.6 8.8 - 10.2 08/15/2018 8:25 [facility] mg/dL AM CDT [facility] Glucose, S 102 70 - 140 08/15/2018 8:25 [facility] mg/dL AM CDT [facility] Protein, Total, S 6.4 6.3 - 7.9 08/15/2018 8:25 [facility] LINIC g/dL AM CDT [facility] Albumin, S 4.3 3.5 - 5.0 08/15/2018 8:25 [facility] g/dL AM CDT [facility] Aspartate 62 (H) 8 - 48 U/L 08/15/2018 8:25 [facility] Aminotransferase (AST), AM CDT LABORA TORIES - S [facility] Alkaline Phosphatase, S 142 (H) 40 - 129 U/L 08/15/2018 8: 25 [facility] AM CDT [facility] Alanine Aminotransferase 25 7 - 55 U/L 08/15/2018 8:2 5 [facility] (ALT), S AM CDT [facility] Bilirubin, Total, S 1.2 <=1.2 mg/dL 08/15/2018 8:25 [facility] AM CDT [facility] Specimen Anatomical Collection Method Collection Time Receive d Time (Source) Location / / Volume Laterality Blood (Blood, 08/15/2018 6:00 AM 08/16/19 19 6:20 Venous) CDT AM CDT Vaughn Rader M.D., Ph.D. LAB BLOOD ADD-ON Performing Organization Address City/State/ZIP Code Phon e Number [facility] - [address] [place], [place] [address] [facility] (ABNORMAL) Troponin T, 2H/6H, 5th Gen (08/15/2018 6:00 AM CDT) [facility] Method Time Signature Troponin T, 2 366 (H) <=15 ng/L 08/15/2018 [facility] hr, 5th gen 6:38 AM CDT [facility] Comment: Consider acute myocardial injur y 2H Delta 60 ng/L 08/15/2018 6:38 AM CDT [facility] Delta Interp Changing 08/15/2018 6:38 AM CDT [facility] Comment: Evaluate for acute myocardial i njury Troponin T, 6 hr, 5th CANCELED ng/L 08/15/2018 11: 23 AM [facility] LABORATORIES gen CDT - [facility] Comment: Hemolyzed redraw requested Result canceled by the ancillary Specimen Anatomical Collection Method Collection Time Receive d Time (Source) Location / / Volume Laterality Blood (Blood, 08/15/2018 6:00 AM 08/16/19 19 6:07 Venous) CDT AM CDT Narrative [facility] - [facility] - 08/15/2018 11:25 AM CDT Specimen Information: Specimen ID: [id number] Specimen Type: Blood Specimen Collection Start Date: 08/16/19 ??6:00 AM Specimen Received Date: 08/15/2018 ??6:0 7 AM Specimen ID: [id number] Specimen Type: Blood Specimen Collection Start Date: 08/16/19 11:00 AM Specimen Received Date: 08/15/2018 11:08 AM Vaughn Rader M.D., Ph.D. LAB BLOOD TROPONIN Performing Organization Address City/State/ZIP Code Phon e Number [facility]IES - [address] (ABNORMAL) Troponin T, Baseline, 5th gen (08/15/2018 4:23 AM CDT) [facility] Method Time Signature Troponin T, 306 (H) <=15 ng/L 08/15/2018 [facility] Baseline, 5th 4:50 AM CDT LABORATORIES - gen [facility] Comment: Consider acute myocardial injur y Specimen Anatomical Collection Method Collection Time Receive d Time (Source) Location / / Volume Laterality Blood (Blood, 08/15/2018 4:23 AM 08/16/19 19 4:29 Venous) CDT AM CDT Vaughn Rader M.D., Ph.D. LAB BLOOD TROPONIN Performing Organization Address City/State/ZIP Code Phon e Number [facility] - [address] APTT (Activated Partial Thromboplastin Time) (08/15/2018 4:04 AM CDT) P athologist Signature Activated 35 25 - 37 08/15/2018 [facility] Partial sec 4:48 AM CDT LABORATORIES - [facility] Time, P C[facility] Specimen Anatomical Collection Method Collection Time Receive d Time (Source) Location / / Volume Laterality Blood (Blood, 08/15/2018 4:04 AM 08/16/19 4:38 Venous) CDT AM CDT Vaughn Rader M.D., Ph.D. LAB BLOOD ADD-ON Performing Organization Address City/State/ZIP Code Phon e Number [facility]IES - [address] [place], [place] [address] [facility] documented in this encounter Visit Diagnoses Diagnosis [...] - Reason: Patient not available)1048 ([facility] Unhold - Provider: Transfer Provider, Automatic) 10-250 [...] fluid. NaCl 0.9% infusion 0846 ([facility] Hold - Pro vider: Transfer Provider, Automatic - Reason: Patient not available)1048 ([facility] Unhold - Provider: Transfer Provider, Automatic) 10-250 [...] tablet 0.4 mg (NITROSTAT) 0846 ([facility] Hold - Provider: Transfer Provider, Automatic - Reason: Patient not available)1048 ([facility] Unhold - Provider: Transfer Provider, Automatic) 0.4 [...]
--- OUTSIDE RECORDS SUMMARY | 2022-03-12 08:31 | XMS_ITS | Encounter Summary ---
:1940 Author Organization [facility] Address [address] [place] [address] Care Team Providers Name Role Phone Unavailable Primary Care Provider Unavailable Encounter Details Date Type Department Care Team Description 08/13/2018 Hospital Encounter Department of Laila Loco, [facility] Cervical Radiology in [place], [place] [address] [facility] [address] [place] [id number] [phone] Social History Tobacco Use Types Packs/Day Years [...] tartrate 0 06/23/201708/15 (for_LOPRESSOR) 25 mg tablet zngktrmoryod-iifxohdb-gbm Take 1 tablet by 0 06/0608/15/2018 ifrah [...] Magnetic Resonance Neuroradiology ARZ LOS, Neuroradiology [facility] Specimen (Source) Anatomical Collection Method Collection [...]
--- OUTSIDE RECORDS SUMMARY | 2022-03-12 08:31 | XMS_ITS | Encounter Summary ---
:1940 Author Organization [facility] Address [address] [place] [address] Care Team Providers Name Role Phone Elsewhere, Pcp Primary Care Provider Unavailable Reason for Visit Reason Comments Pain Outpatient (Routine) - Closed Specialty Diagnoses / Procedures Referred By Contact Refer red To Contact Orthopedic Surgery Diagnoses Tear Rotator Cuff Complete Non Trauma Left Laila Loco, [facility] [address] [place], [place] [address] Referral ID Status Reason Start Date Expiration Date Visits Requ ested Visits Authorized [id number] Closed 08/24/2018 08/24/2019 1 1 Encounter Details Date Type Department Care Team Description 08/27/2018 Comprehensive Visit Department of [place], Tear Ro tator Cuff Orthopedic Surgery Marisela Fair Complete Non Trauma in [address] [address] [place], [place] [phone] (Work) [phone] Social History Tobacco Use Types Packs/Day Years [...] Tear Rotator Cuff Complete Non Trauma Left Ksp-cbvj-gpwmsbak-elbow arthrocentesis Date/Time: 08/27/2018 1:57 PM Performed by: MARV DUENAS Authorized by: MARV DUENAS Care team members present: Wets Manager Test utilized: watch repairer apprentice not needed Risks discussed with: patient Procedural [...] Name Priority Date/Time Associated Diagnosis Comme nts [place] ARTHCS ASP/INJ Routine 08/27/2018 2:00 PM Tear Rotator Cuff Results for this [facility] JT WO US CDT Complete Non Trauma procedur e are in Left the results section. documented in this encounter Results [place] ARTHCS ASP/INJ [facility] JT WO US (08/27/2018 2:00 PM CDT) Narrative [facility] - 08/27/2018 2:00 PM CDT Marv Duenas M.D. ? 08/28/2018 ??8:20 AM Ibj-blfv-nitipcso-elbow arthrocentesis Date/Time: 08/27/2018 1:57 PM Performed by: MARV DUENAS Authorized by: MARV DUENAS Care team members present: ??West Manager Test utilized: watch repairer apprentice not ne eded ?? Risks discussed with: [...] documented as of this encounter Care Teams Extension Professor Relationship Specialty Start Date End Date Elsewhere, Pcp PCP - General Internal Medicine 08/17/18 11/09/19 documented as of this encounter
--- OUTSIDE RECORDS SUMMARY | 2022-03-12 08:31 | XMS_ITS | Encounter Summary ---
:1940 Author Organization [facility] Address [address] [place] [address] Care Team Providers Name Role Phone Unavailable Primary Care Provider Unavailable Encounter Details Date Type Department Care Team Description 11/21/2017 Hospital Encounter Department [facility] [place] [facility] [address] [place] [address] [address] [address] [place], [place] [phone] (Work) [phone] Social History Tobacco Use Types Packs/Day Years [...] tartrate 0 06/23/201708/15 (for_LOPRESSOR) 25 mg tablet vegntnuqoxkd-jljehtwc-ry Take 1 tablet by 0 06/2508/15/2018 rrous [...] BMD BONE DENSITY SPINE HIPS COMPARISON: None. Recreation Adviser/Model: [employer] FINDINGS: ?? LUMBAR SPINE L1-L4 included unless [...] BMD BONE DENSITY SPINE HIPS COMPARISON: None. Recreation Adviser/Model: [employer] FINDINGS: LUMBAR SPINE L1-L4 included unless otherwise [...]
--- OUTSIDE RECORDS SUMMARY | 2022-03-12 08:31 | XMS_ITS | Encounter Summary ---
:1940 Author Organization [facility] Address [address] [place] [address] Care Team Providers Name Role Phone Unavailable [...] Type Department Care Team Description 07/03/2018 Emergency [facility] Emergency Isiah Hart D izziness (Primary Dx); Department [facility]; [address] [place] [address] [place] [address] [place] [phone] Social History Tobacco Use Types Packs/Day Years Used Date Smoking Tobacco: Former Smokeless Tobacco: Never Alcohol Use Standard Drinks/Week Comments No 0 (1 standard drink = 0.6 oz pure alcoho l) Sex Assigned at Date Recorded Not on file documented as of this encounter Last Filed Vital Signs Vital Sign Reading Time Taken Comments Blood Pressure 117/70 07/03/2018 10:30 PM CONSTRUCTION ENGINEERING MANAGER Pulse 57 07/03/2018 11:00 PM CONSTRUCTION ENGINEERING MANAGER Temperature - - Respiratory Rate 20 07/03/2018 11:00 PM CONSTRUCTION ENGINEERING MANAGER Oxygen Saturation 93% 07/03/2018 11:00 PM CONSTRUCTION ENGINEERING MANAGER Inhaled Oxygen Concentration - - Weight 67.1 kg (148 lb) 07/03/2018 8:28 PM CONSTRUCTION ENGINEERING MANAGER Height - - Body Mass Index 23.79 06/25/2016 8:20 AM CONSTRUCTION ENGINEERING MANAGER documented in this encounter Discharge Instructions AttachmentsThe following attachments cannot be sent through Care Everywhere. Dehydration Adult (Burundian)documented in this encounter Medications at Time of [...] suggests that it was the tartrate formulation. [id number] Take 1 tablet by 0 06/0608/15/2018 ifrah [...] history of coronary artery disease status post ID and stent placement in 2011, as well [...] INTRAOCULAR LENS; Surgeon: Raymundo Muniz M.D.; Location: [facility] OR 07/21/2017: EXTRACTION CATARACT WITH INSERTION INTRAOCULAR LENS; Left Comment: Procedure: EXTRACTION CATARACT WITH INSERTION INTRAOCULAR LENS; Surgeon: Raymundo Muniz M.D.; Location: [facility] OR 06/23/2006: MOHS SURGERY; N/A Comment: >Mohs [...] tablet, Take 0.5 tablets by mouth daily. [id number]-[id number] gluconate (MULTIVITAMIN WITH MINERALS) 9 mg iron/15 [...] Lightheadedness Dehydration Isiah Hart M.D. Resident 07/03/182245 TRUCTION ENGINEERING MANAGER documented in this encounter Plan of Treatment Not on filedocumented as of this encounter Procedures Procedure Name Priority Date/Time Associated Comments Diagnosis URINALYSIS WITH STAT 07/03/2018 9:59 PM Result s for this MICROSCOPIC CONSTRUCTION ENGINEERING MANAGER procedure are i n the results section. CBC WITH STAT 07/03/2018 9:42 PM Results f or this DIFFERENTIAL, B CONSTRUCTION ENGINEERING MANAGER procedure ar e in the results section. C-REACTIVE PROTEIN STAT 07/03/2018 9:42 PM Res ults for this (CRP), S/P CONSTRUCTION ENGINEERING MANAGER procedure are i n the results section. TROPONIN T, 5TH GEN, STAT 07/03/2018 9:42 PM R esults for this P CONSTRUCTION ENGINEERING MANAGER procedure are i n the results section. BASIC METABOLIC STAT 07/03/2018 9:42 PM Result s for this PANEL, S/P CONSTRUCTION ENGINEERING MANAGER procedure are i n the results section. ECG STAT 07/03/2018 8:55 PM Results f or this CONSTRUCTION ENGINEERING MANAGER procedure are i n the results section. documented in this encounter Results (ABNORMAL) Urinalysis with Microscopic (midstream) (07/03/2018 9:59 PM CONSTRUCTION ENGINEERING MANAGER) athologist Signature Source Midstream 07/03/2018 [facility] 10:06 PM [facility] Clarity Clear Clear 07/03/2018 [facility] 10:06 PM [facility] Color Yellow 07/03/2018 [facility] 10:06 PM [facility] Comment: ----REFERENCE VALUE---- Colorless Yellow Isabel Blood Negative Negative 07/03/2018 10:06 PM [facility] Nitrite Negative Negative 07/03/2018 10:06 PM [facility] Leukocyte Esterase Trace (A) Negative 07/03/2018 10:06 PM [facility] Protein Negative mg/dL 07/03/2018 10:06 PM [facility] Comment: ----REFERENCE VALUE---- Negative Trace Glucose Negative Negative mg/dL 07/03/2018 10:06 PM [facility] Ketones, QI(U) Negative Negative mg/dL 07/03/2018 10:06 PM [facility] Bilirubin Negative Negative 07/03/2018 10:06 PM [facility] pH 6.0 5.0 - 8.0 07/03/2018 10:06 PM [facility] Specific [place] 1.010 1.001 - 1.035 07/03/2018 10:06 PM [facility] Urobilinogen 0.2 0.2 - 1.0 mg/dL 07/03/2018 10:06 PM [facility] White Blood Cells Occ-3 /hpf 07/03/2018 10:09 PM [facility] Left LAB Comment: ----REFERENCE VALUE---- Males: 0-3 Females: 0-10 Unknown: 0-10 Red Blood Cells None Seen 0 - 2 /hpf 07/03/2018 10:09 PM [facility] Last 2 Left LAB Dysmorphic Red Blood <=25 <=25 % 07/03/2018 10:09 PM [facility] Cells [facility] Hyaline Casts Occasional /lpf 07/03/2018 10:09 PM [facility] Specimen Anatomical Collection Method Collection Time Receive d Time (Source) Location / / Volume Laterality Urine (Urine, 07/03/2018 9:59 PM 07/04/19 9:59 Midstream) [facility] CONSTRUCTION ENGINEERING MANAGER Isiah Hart M.D. LAB URINE ORDERABLES Performing Organization Address City/State/ZIP Code Phon e Number [address] [address] [facility] Troponin T, 5th Generation (07/03/2018 9:42 PM CONSTRUCTION ENGINEERING MANAGER) athologist Signature Troponin T, 5th 8 <=15 ng/L 07/03/2018 [facility] gen 10:02 PM [facility] Comment: Biotin has been identified by the [place] as a potential interfering substance. ??Higher concentr ations of biotin may be found in multivitamins, hair/nail supple ments, and workout supplements. ??If the result does not [facility] clinical observations, repeat testing after patient refrains fr om the use of supplements for at least 12 hours. Specimen Anatomical Collection Method Collection Time Receive d Time (Source) Location / / Volume Laterality Blood (Blood, 07/03/2018 9:42 PM 07/04/19 9:44 Venous) CONSTRUCTION ENGINEERING MANAGER PM CONSTRUCTION ENGINEERING MANAGER Isiah Hart M.D. LAB BLOOD ADD-ON Performing Organization Address City/[facility]/ZIP Code Phon e Number [address] [address] [facility] CRP (C-Reactive Protein) (07/03/2018 9:42 PM CONSTRUCTION ENGINEERING MANAGER) athologist Signature C-Reactive 0.9 <=8.0 mg/L 07/03/2018 [facility] Protein (CRP), 10:07 PM [facility] Specimen Anatomical Collection Method Collection Time Receive d Time (Source) Location / / Volume Laterality Blood (Blood, 07/03/2018 9:42 PM 07/04/19 9:44 Venous) CONSTRUCTION ENGINEERING MANAGER PM CONSTRUCTION ENGINEERING MANAGER Isiah Hart M.D. LAB BLOOD ADD-ON Performing Organization Address City/[facility]/ZIP Code Phon e Number [address] [address] [facility] CBC with Differential (07/03/2018 9:42 PM CONSTRUCTION ENGINEERING MANAGER) athologist Signature Hemoglobin 14.4 13.2 - 07/03/2018 [facility] 16.6 g/dL 9:47 PM [facility] Hematocrit 43.2 38.3 - 07/03/2018 [facility] 48.6 % 9:[address] [facility] Last 2 Left LAB Erythrocytes 4.70 4.35 - 07/03/2018 [facility] 5.65 9:47 PM [facility] x10(12)/L [facility] Last 2 Left LAB MCV 91.9 78.2 - 07/03/2018 [facility] 97.9 fL 9:47 PM [facility] RBC Distrib Width 14.3 11.8 - 07/03/2018 [facility] 14.5 % 9:47 PM [facility] Platelet Count 202 135 - 317 07/03/2018 [facility] x10(9)/L 9:47 PM [facility] Leukocytes 8.2 3.4 - 9.6 07/03/2018 [facility] x10(9)/L 9:47 PM [facility] Neutrophils 5.79 1.56 - 07/03/2018 [facility] 6.45 9:47 PM [facility] x10(9)/L [facility] Lymphocytes 1.54 0.95 - 07/03/2018 [facility] 3.07 9:47 PM CONSTRUCTION ENGINEERING MANAGER HEALTH x10(9)/L [facility] Last 2 Left LAB Monocytes 0.55 0.26 - 07/03/2018 [facility] 0.81 9:47 PM [facility] x10(9)/L [facility] Last 2 Left LAB Eosinophils 0.27 0.03 - 07/03/2018 [facility] 0.48 9:47 PM [facility] x10(9)/L [facility] Last 2 Left LAB Basophils 0.02 0.01 - 07/03/2018 [facility] 0.08 9:47 PM [facility] x10(9)/L [facility] Last 2 Left LAB Specimen Anatomical Collection Method Collection Time Receive d Time (Source) Location / / Volume Laterality Blood (Blood, 07/03/2018 9:42 PM 07/04/19 19 9:44 Venous) CONSTRUCTION ENGINEERING MANAGER PM CONSTRUCTION ENGINEERING MANAGER Isiah Hart M.D. LAB BLOOD ADD-ON Performing Organization Address City/State/ZIP Code Phon e Number [facility] [id number] [place] [id number] [facility] BMP (Basic Metabolic Panel) (07/03/2018 9:42 PM CONSTRUCTION ENGINEERING MANAGER) P athologist Signature Potassium, P 4.5 3.6 - 5.2 07/03/2018 [facility] mmol/L 10:12 PM [facility] Last 2 Left LAB Sodium, P 140 135 - 145 07/03/2018 [facility] mmol/L 10:12 PM [facility] Chloride, P 103 98 - 107 07/03/2018 [facility] mmol/L 10:12 PM [facility] Last 2 Left LAB Bicarbonate, P 25 22 - 29 07/03/2018 [facility] mmol/L 10:13 PM [facility] Anion Gap, P 12 7 - 15 07/03/2018 [facility] 10:12 PM [facility] Last 2 Left LAB BUN (Blood Urea 16 8 - 24 07/03/2018 [facility] Nitrogen), P mg/dL 10:13 PM [facility] Creatinine 1.02 0.74 - 07/03/2018 [facility] 1.35 mg/dL 10:13 PM [facility] Last 2 Left LAB eGFR-Black/Afri 82 >=60 07/03/2018 [facility] can Ug[place]an mL/min/BSA 10:13 PM [facility] Last 2 Left LAB Comment: ----ADDITIONAL INFORMATION---- Estimated GFR calculated using the 2009 CKD_EPI creatinine equation. eGFR Non-Black/ 71 >=60 mL/min/BSA 07/03/2018 10:13 PM [facility] [place] [facility] Last 2 Left LAB Comment: ----ADDITIONAL INFORMATION---- Estimated GFR calculated using the 2009 CKD_EPI creatinine equation. Calcium, Total, P 9.9 8.8 - 10.2 mg/dL 07/03/2018 1 0:13 PM [facility] Last 2 Left LAB Glucose, P 126 70 - 140 mg/dL 07/03/2018 10:13 PM [facility] Last 2 Left LAB Specimen Anatomical Collection Method Collection Time Receive d Time (Source) Location / / Volume Laterality Blood (Blood, 07/03/2018 9:42 PM 07/04/19 19 9:44 Venous) CONSTRUCTION ENGINEERING MANAGER PM [facility] Isiah Hart M.D. LAB BLOOD ADD-ON Performing Organization Address City/State/ZIP Code Phon e Number [facility]- [id number] [address] [facility] ECG 12 Lead (STAT) (07/03/2018 8:55 PM CONSTRUCTION ENGINEERING MANAGER) P athologist Signature Ventricular Rate 63 BPM MUSE ECG/Min AR Interval 164 ms MUSE QRSD Interval 78 ms MUSE QT Interval 418 ms MUSE QTC Interval 427 ms MUSE P [place] 37 degrees MUSE T Wave [place] 39 degrees MUSE Specimen Anatomical Collection Method Collection Time Receive d Time (Source) Location / / Volume Laterality 07/03/2018 8:55 PM 9 9:01 CONSTRUCTION ENGINEERING MANAGER PM CONSTRUCTION ENGINEERING MANAGER Impressions MUSE - 07/03/2018 9:01 PM CONSTRUCTION ENGINEERING MANAGER Sinus rhythm Premature ventricular complexes Cannot rule [...]
--- OUTSIDE RECORDS SUMMARY | 2022-03-12 08:31 | XMS_ITS | Encounter Summary ---
:1940 Author Organization [facility] Address [address] [place] [address] Care Team Providers Name Role Phone Elsewhere, Pcp Primary Care Provider Unavailable Reason for Visit Reason Onset Date Comments cardiac rehab referral 08/17/2018 Encounter Details Date Type Department Care Team Description 08/17/2018 Clinical Department of Greg cardiac rehab Communication Cardiovascular Sophia Soares, referral Medicine in [place], [place] [address] [facility] [address] [place] [phone] Social History Tobacco Use Types Packs/Day Years Used Date Smoking Tobacco: Former Smokeless Tobacco: Never Alcohol Use Standard Drinks/Week Comments No 0 (1 standard drink = 0.6 oz pure alcoho l) Sex Assigned at Date Recorded Not on file documented as of this encounter Miscellaneous Notes Telephone Encounter - Sophia Garza, [facility] - 08/17/2018 11:22 AM CDT INFORMATION [...] referral if participation is recommended. 2. Eligibility: [place] and [place] 3. Exceptions/exclusions: None 4. Referral: [...] as of this encounter Care Teams Rigger Supervisor Relationship Specialty Start Date End Date Elsewhere, Pcp PCP - General Internal Medicine 08/17/18 11/09/19 documented as of this encounter
--- OUTSIDE RECORDS SUMMARY | 2022-03-12 08:31 | XMS_ITS | Encounter Summary ---
:1940 Author Organization [facility] Address [address] [place] [address] Care Team Providers Name Role Phone Unavailable Primary Care Provider Unavailable Encounter Details Date Type Department Care Team Description 08/08/2017 Abstract Department of Family Medicine, Provider, Historical [facility], in [place], [place] [address] [place] [address] Social History Tobacco Use Types Packs/Day [...]
--- OUTSIDE RECORDS SUMMARY | 2022-03-12 08:31 | XMS_ITS | Encounter Summary ---
:1940 Author Organization [facility] Address [address] [place] [address] Care Team Providers Name Role Phone Unavailable Primary Care Provider Unavailable Encounter Details Date Type Department Care Team Description 08/01/2017 Abstract Department of Family Medicine, Provider, Historical [facility], in [place], [place] [address] [place] [address] Social History Tobacco Use Types Packs/Day [...]
--- OUTSIDE RECORDS SUMMARY | 2022-03-12 08:31 | XMS_ITS | Encounter Summary ---
:1940 Author Organization [facility] Address [address] [place] [address] Care Team Providers Name Role Phone Unavailable Primary Care Provider Unavailable Encounter Details Date Type Department Care Team Description 11/12/2017 Clinical Communication Department of Raymundo Muniz Ophthalmology in Fabricio Soares M.D. [address] [place] [phone] Social History Tobacco Use Types Packs/Day Years [...]
--- OUTSIDE RECORDS SUMMARY | 2022-03-12 08:31 | XMS_ITS | Encounter Summary ---
:1940 Author Organization [facility] Address [address] [place] [address] Care Team Providers Name Role Phone Unavailable Primary Care Provider Unavailable Encounter Details Date Type Department Care Team Description 08/15/2018 - Hospital Encounter [facility] Melanie Calderon M.B., B.Ch. [address] [place] [phone] Non-ST Elevation 08/16/2018 [facility], Tom Vines M.D., Ph.D. [address] [place] [phone] [facility] Infarction (HCC) [facility], (Primary Dx) Fifth Floor [address] [place] [phone] Social History Tobacco Use Types Packs/Day Years [...] Case IDs Date Procedure Surgeon Location Status [id number] 08/15/18 Coronary Angiography Jacques Barraza M.D. RST [...] started on heparin drip and transferred to [facility] for further management of NSTEMI. He [...] exam, and recommendations by Dr. Meier. #1 Som-HI-bpzcqqtaa myocardial infarction Mr. Vines will continue with [...] with the plan. CT CT Job ID: [id number] documented in this encounter H&P Notes Tom [...] heparin. He was taken to the laborer [facility] this morning, after informed consent was obtained, [...] and recommendations by Dr. Monk and Dr. Corarl. #1 Xns-DF-shkjxfmih myocardial infarction Mr. Vines was preloaded with [...] with the plan. CT CT Job ID: [id number] Reji Espitia M.D. - 08/15/2018 8:47 AM [...] focal neurologic complaints. In the ED in [place], he was noted to have stable vitals [...] on heparin gtt prior to transfer to [facility]. Upon arrival, he is hemodynamically [...] is 23.38 kg/m??. See exam by Dr. Corarl for further details. General: Alert, conversant, no [...] focal neurologic complaints. In the ED in [place], he was noted to have stable vitals [...] on heparin gtt prior to transfer to [facility]. Upon arrival, he is hemodynamically [...] male with a history of CAD s/p AZ and stent placement (mid-RCA, 2011), hyperlipidemia, and [...] spoke with Dr. Calderon at [facility] for recommendations and was suggested to treat his NSTEMI with aspirin 324 mg oral, Plavix 300 mg oral, and start a heparin bolus and drip. The was then transferred to [facility] via ambulance for further management of [...] GERD, hyperlipidemia, ischemic stroke, CAD status post AZ and stent placement - Surgical history: Carotid [...] ASSESSMENT/PLAN #1 NSTEMI #2 Coronary artery disease, AZ s/p stent to mid-RCA (2011) #3 Ischemic stroke s/p carotid enterectomy #4 Hyperlipidemia Mr. Vines is a 78 y/o male with a history of CAD s/p AZ and stent placement (mid- RCA, 2011) and [...] Summary: Education complete. Pt will d/c to [facility]. No further questions CARDIOVASCULAR - ADULT ??? [...] POST-PERCUTANEOUS CORONARY INTERVENTION BRIEF NOTE PATIENT: Obey Vnies : 1940 DATE OF SERVICE: 08/15/2018 PRIMARY CARE PROVIDER: No primary care provider on file. REFERRING PHYSICIAN: Saurabh Calderon M.B.* DATE OF ADMISSION: 08/15/2018 1:25 AM Obey Vines underwent successful PCI with SHAHAB to the left anterior descending artery today in aprocedure with Dr.Mandeep Barraza Implants: Implant Name Type Inv. Item Serial No. Press Feeder Broomcorn Lot No. LRB No. Used Action STNT SYNERGY SHAHAB [id number] - [id number] Cardiac Stent STNT SYNERGY SHAHAB [id number] [employer] [id number] N/A 1 Implanted Antiplatelet regimen: Aspirin 81 [...] Jung Castro M.D., M.P.H. Interventional and Structural Commodity Analyst [facility] 08/15/18 9:53 AM documented in this [...] started on heparin drip and transferred to [facility] for further management of NSTEMI. He [...] Basic Metabolic Panel (08/16/2018 7:44 AM CDT) [facility] gist Method Time Signature Potassium, S 4.2 3.6 - 5.2 08/16/2018 [facility] mmol/L 8:51 AM CDT LABORATORIES [facility] Sodium, S 141 135 - 145 08/16/2018 [facility] mmol/L 8:51 AM CDT LABORATORIES [facility] Chloride, S 102 98 - 107 08/16/2018 [facility] mmol/L 8:51 AM CDT LABORATORIES [facility] Bicarbonate, S 23 22 - 29 08/16/2018 [facility] mmol/L 8:51 AM CDT LABORATORIES [facility] Anion Gap 16 (H) 7 - 15 08/16/2018 [facility] 8:51 AM CDT LABORATORIES [facility] BUN (Blood Urea 16 8 - 24 08/16/2018 [facility] Nitrogen), S mg/dL 8:51 AM T [facility] Creatinine 1.18 0.74 - 08/16/2018 [facility] 1.35 mg/dL 8:51 AM T [facility] eGFR-Non 59 (L) >=60 08/16/2018 [facility] Black/ mL/min/BSA 8:51 AM CDT LABORATORIES [facility] Comment: ----ADDITIONAL INFORMATION---- Estimated GFR calculated using the 2009 CKD_EPI creatinine equation. eGFR-Black/ 68 >=60 mL/min/BSA 08/16/2018 8:[facility] Comment: ----ADDITIONAL INFORMATION---- Estimated GFR calculated using the 2009 CKD_EPI creatinine equation. Calcium, Total, S 9.5 8.8 - 10.2 mg/dL 08/16/2018 8:51 AM [facility] CDT [facility] S Glucose, S 100 70 - 140 mg/dL 08/16/2018 8:51 AM [facility] S Specimen Anatomical Collection Method Collection Time Receive d Time (Source) Location / / Volume Laterality Blood (Blood, 08/16/2018 7:44 AM 08/17/19 19 8:16 Venous) CDT AM CDT Tom Johnson M.D., Ph.D. LAB BLOOD ADD-ON Performing Organization Address City/State/ZIP Code Phon e Number [facility] - [address] [place] [address] [facility] CBC with Differential, Blood (08/16/2018 7:44 AM CDT) [employer] Method Time Signature Hemoglobin 15.2 13.2 - 08/16/2018 [facility] 16.6 g/dL 8:21 AM CDT LABORATORIES - [facility] Hematocrit 44.7 38.3 - 08/16/2018 [facility] 48.6 % 8:21 AM CDT LABORATORIES - [facility] Erythrocytes 4.99 4.35 - 08/16/2018 [facility] 5.65 8:21 AM CDT LABORATORIES - x10(12)/L [facility] MCV 89.6 78.2 - 08/16/2018 [facility] 97.9 fL 8:21 AM CDT LABORATORIES - [facility] RBC Distrib Width 14.1 11.8 - 08/16/2018 [facility] 14.5 % 8:21 AM CDT LABORATORIES - [facility] Platelet Count 231 135 - 317 08/16/2018 [facility] x10(9)/L 8:21 AM CDT LABORATORIES - [facility] Leukocytes 8.1 3.4 - 9.6 08/16/2018 [facility] x10(9)/L 8:21 AM CDT LABORATORIES - [facility] Neutrophils 5.20 1.56 - 08/16/2018 [facility] 6.45 8:21 AM CDT LABORATORIES - x10(9)/L [facility] Lymphocytes 2.03 0.95 - 08/16/2018 [facility] 3.07 8:21 AM CDT LABORATORIES - x10(9)/L [facility] Monocytes 0.60 0.26 - 08/16/2018 [facility] 0.81 8:21 AM CDT LABORATORIES - x10(9)/L [facility] Eosinophils 0.20 0.03 - 08/16/2018 [facility] 0.48 8:21 AM CDT LABORATORIES - x10(9)/L [facility] Basophils 0.04 0.01 - 08/16/2018 [facility] 0.08 8:21 AM CDT LABORATORIES - x10(9)/L [facility] Specimen Anatomical Collection Method Collection Time Receive d Time (Source) Location / / Volume Laterality Blood (Blood, 08/16/2018 7:44 AM 08/17/19 19 8:16 Venous) CDT AM CDT Tom Johnson M.D., Ph.D. LAB BLOOD ADD-ON Performing Organization Address [facility] Phon e Number [facility] LABORATORIES - [address] [place] [address] [facility] (ABNORMAL) Troponin T, 6H, 5th Gen (08/15/2018 12:37 PM CDT) Patholo gist Method Time Signature Troponin T, 6 433 (H) <=15 ng/L 08/15/2018 [facility] hr, 5th gen 1:09 PM CDT LABORATORIES [facility] Comment: Consider acute myocardial injur y 6H Delta 127 ng/L 08/15/2018 1:09 PM CDT [facility] IN LABORATORIES - [facility] S 6H Delta Interp Changing 08/15/2018 1:[address] [facility] S Comment: Evaluate for acute myocardial i njury Specimen Anatomical Collection Method Collection Time Receive d Time (Source) Location / / Volume Laterality Blood 08/15/2018 12:37 08/15/2018 PM CDT 12:43 PM CDT Darvin Corral M.D. LAB BLOOD TROPONIN Performing Organization Address [facility] Code Phon e Number [facility] LABORATORIES - [address] [place] [phone] [facility] Heparin Anti-Xa Assay (08/15/2018 11:00 AM CDT) P athologist Signature Heparin 1.62 IU/mL 08/15/2018 [facility] Anti-Xa, P 12:53 PM CDT [facility] Comment: UFH therapeutic range: ?? 0.30-0.70 [...] Address City/State/ZIP Code Phon e Number [facility] LABORATORIES - [address] [place], [place] [address] [facility] CORONARY ANGIOGRAPHY, STENT PLACEMENT, PERCUTANEOUS CORONARY ANGIOPLASTY [...] POCT ORDERABLES - DEVICE Performing Organization Address City/[facility]/ZIP Code Phon e Number POC RST [facility] IN[facility]IENT LABS [address] [facility] [place] [address] (ABNORMAL) ACT (Activated Clotting Time), POCT (08/15/2018 [...] Code Phon e Number POC RST [facility] IN[facility]S [address] [facility] [address] Bilirubin, Direct (08/15/2018 6:00 AM CDT) P athologist Signature Bilirubin, 0.2 0.0 - 0.3 08/15/2018 [facility] Direct, S mg/dL 8:25 AM CDT LABORATORIES - [facility] Specimen Anatomical Collection Method Collection Time Receive d Time (Source) Location / / Volume Laterality Blood (Blood, 08/15/2018 6:00 AM 08/16/19 19 6:20 Venous) CDT AM CDT Vaughn Rader M.D., Ph.D. LAB BLOOD ADD-ON Performing Organization Address City/State/ZIP Code Phon e Number [facility] LABORATORIES - [address] [place], [place] [address] [facility] (ABNORMAL) Comprehensive Metabolic Panel (08/15/2018 6:00 AM CDT) Patholo gist Method Time Signature Potassium, S 4.5 3.6 - 5.2 08/15/2018 [facility] mmol/L 8:25 AM CDT LABORATORIES - [facility] Sodium, S 144 135 - 145 08/15/2018 [facility] mmol/L 8:25 AM CDT LABORATORIES - [facility] Chloride, S 102 98 - 107 08/15/2018 [facility] mmol/L 8:25 AM CDT LABORATORIES - [facility] Bicarbonate, S 24 22 - 29 08/15/2018 [facility] mmol/L 8:25 AM CDT LABORATORIES - [facility] Anion Gap 18 (H) 7 - 15 08/15/2018 [facility] 8:25 AM CDT LABORATORIES - [facility] BUN (Blood Urea 14 8 - 24 08/15/2018 [facility] Nitrogen), S mg/dL 8:25 AM CDT LABORATORIES - [facility] Creatinine 1.14 0.74 - 08/15/2018 [facility] 1.35 mg/dL 8:25 AM CDT LABORATORIES - [facility] eGFR-Non 62 >=60 08/15/2018 [facility] Black/ mL/min/BSA 8:25 AM CDT LABORATORIES - [facility] Comment: ----ADDITIONAL INFORMATION---- Estimated GFR calculated using the 2009 CKD_EPI creatinine equation. eGFR-Black/ 71 >=60 mL/min/BSA 08/15/2018 8:25 [facility] Togolese AM CDT [facility] Comment: ----ADDITIONAL INFORMATION---- Estimated GFR calculated using the 2009 CKD_EPI creatinine equation. Calcium, Total, S 9.6 8.8 - 10.2 08/15/2018 8:25 [facility] mg/dL AM CDT LABORATORIES [facility] Glucose, S 102 70 - 140 08/15/2018 8:25 [facility] mg/dL AM CDT LABORATORIES [facility] Protein, Total, S 6.4 6.3 - 7.9 08/15/2018 8:25 [facility] g/dL AM CDT [facility] Albumin, S 4.3 3.5 - 5.0 08/15/2018 8:25 [facility] g/dL AM CDT [facility] Aspartate 62 (H) 8 - 48 U/L 08/15/2018 8:25 [facility] Aminotransferase (AST), AM CDT LABORA TORIES - S [facility] Alkaline Phosphatase, S 142 (H) 40 - 129 U/L 08/15/2018 8: 25 [facility] CDT LABORATORIES [facility] Alanine Aminotransferase 25 7 - 55 U/L 08/15/2018 8:2 5 [facility] (ALT), S AM CDT [facility] Bilirubin, Total, S 1.2 <=1.2 mg/dL 08/15/2018 8:25 [facility] CDT [facility] Specimen Anatomical Collection Method Collection Time Receive d Time (Source) Location / / Volume Laterality Blood (Blood, 08/15/2018 6:00 AM 08/16/19 19 6:20 Venous) CDT AM CDT Vaughn Rader M.D., Ph.D. LAB BLOOD ADD-ON Performing Organization Address City/State/ZIP Code Phon e Number [facility] - [address] [place], [place] [address] [facility] (ABNORMAL) Troponin T, 2H/6H, 5th Gen (08/15/2018 6:00 AM CDT) [employer] Method Time Signature Troponin T, 2 366 (H) <=15 ng/L 08/15/2018 [facility] hr, 5th gen 6:38 AM CDT LABORATORIES [facility] Comment: Consider acute myocardial injur y 2H Delta 60 ng/L 08/15/2018 6:38 AM CDT [facility] IN LABORATORIES - [facility] S 2H Delta Interp Changing 08/15/2018 6:38 AM CDT [facility] S Comment: Evaluate for acute myocardial i njury Troponin T, 6 hr, 5th CANCELED ng/L 08/15/2018 11: [address] [facility] gen CDT - [facility] Comment: Hemolyzed redraw requested Result canceled by the ancillary Specimen Anatomical Collection Method Collection Time Receive d Time (Source) Location / / Volume Laterality Blood (Blood, 08/15/2018 6:00 AM 08/16/19 6:07 Venous) CDT AM CDT Narrative [facility] - 08/15/2018 11:25 AM CDT Specimen Information: Specimen ID: [id number] Specimen Type: Blood Specimen Collection Start Date: 08/16/19 ??6:00 AM Specimen Received Date: 08/15/2018 ??6:0 7 AM Specimen ID: [id number] Specimen Type: Blood Specimen Collection Start Date: 08/16/19 11:00 AM Specimen Received Date: 08/15/2018 11:08 AM Vaughn Rader M.D., Ph.D. LAB BLOOD TROPONIN Performing Organization Address City/[facility] Code Phon e Number [facility] - [address] [place], [place] [address] [facility] (ABNORMAL) Troponin T, Baseline, 5th gen (08/15/2018 4:23 AM CDT) [employer] Method Time Signature Troponin T, 306 (H) <=15 ng/L 08/15/2018 [facility] Baseline, 5th 4:50 AM CDT LABORATORIES - [facility] Comment: Consider acute myocardial injur y Specimen Anatomical Collection Method Collection Time Receive d Time (Source) Location / / Volume Laterality Blood (Blood, 08/15/2018 4:23 AM 08/16/19 19 4:29 Venous) CDT AM CDT Vaughn Rader M.D., Ph.D. LAB BLOOD TROPONIN Performing Organization Address City/State/ZIP Code Phon e Number [facility] - [address] [place], [place] [address] [facility] APTT (Activated Partial Thromboplastin Time) (08/15/2018 4:04 AM CDT) athologist Signature Activated 35 25 - 37 08/15/2018 [facility] Partial sec 4:48 AM CDT LABORATORIES - [facility]rombopl [facility] Specimen Anatomical Collection Method Collection Time Receive d Time (Source) Location / / Volume Laterality Blood (Blood, 08/15/2018 4:04 AM 08/16/19 4:38 Venous) CDT AM CDT Vaughn Rader M.D., Ph.D. LAB BLOOD ADD-ON Performing Organization Address City/State/ZIP Code Phon e Number [facility] LAB[facility]ATORIES - [address] [place] [address] [facility] documented in this encounter Visit Diagnoses [...] (COMPLETED) 08 (Given - Provider: Herbie Brady R.NLara) 0.5 mg, intravenous, Once as needed, sed [...] with maintenance fluid. NaCl 0.9% infusion 0846 ([facility] Hold - Pro vider: Transfer Provider, Automatic - Reason: Patient not available)1048 ([facility] Unhold - Provider: Transfer Provider, [...] nitroglycerin SL tablet 0.4 mg (NITROSTAT) 0846 ([facility] Hold - Provider: Transfer Provider, Automatic - Reason: Patient not available)1048 ([facility] Unhold - Provider: Transfer Provider, [...]
--- OUTSIDE RECORDS SUMMARY | 2022-03-12 08:32 | XMS_ITS | Encounter Summary ---
:1940 Author Organization [facility] Address [address] [place] [address] Care Team Providers Name Role Phone Unavailable Primary Care Provider Unavailable Encounter Details Date Type Department Care Team Description 08/08/2015 Hospital Encounter HX [facility] ENT Maggie Osborne M.D. [address] [place], [place] [phone] (Wo rk) Social History [...] Osborne M.D. - 08/08/2015 8:04 AM CDT [id number] Mr. Vines is a pleasant 75-year-old gentleman. CHIEF COMPLAINT/REASON FOR VISIT Blood in ear canals, consult at the request of Laila Loco CNP, [facility]. HISTORY OF PRESENT ILLNESS Mr. Vines reports recently he was noted to have blood in both ears. He was told they look different. He had a history of cerumen impaction which is typically uneventfully debrided at [facility]. He said recently he used a [...] history. SOCIAL HISTORY No tobacco. 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 PHYSICAL EXAMINATION GENERAL: He appears well. No [...] otherwise. Maggie Osborne M.D./dirk cc: Laila Loco, HISTOLOGIC AIDE, TRANSPLANT SURGEON [facility] [address] [place] [address] Electronically Signed By: MAGGIE OSBORNE MD On: 08/15/2015 07:59 AM Source: [facility] [email or web address] Document Id: [id number] documented in this encounter Miscellaneous Notes Miscellaneous - Maggie Osborne M.D. - 08/08/2015 9:11 AM CDT Ambulatory Patient Summary [facility] [address], [address] [place], [place] [id number] Visit Information Name: RYLEY VINES [facility] Number: [id number] Current Date: 08/08/2015 09:11:13 [...] if you dont have one. Go to [email or web address] and click on Create Your Account. Then, follow the directions to complete the online form. Youll be asked for your [facility] number which you can find at the top of this document. Your Goals/Additional instructions: Source: [facility] POWERCHART Document Id: [id number] Miscellaneous - Maggie Osborne M.D. - 08/08/2015 9:11 AM CDT Ambulatory Discharge Medication List [facility] [address], [address] [place], [place] [id number] Visit Information Name: RYLEY VINES [facility] Number: [id number] Visit Date: 08/08/2015 09:11:13 [...] MD Signed On:08-AUG-2015 09:10:58 Additional Information: Source: [facility] [employer]ART Document Id: [id number] Miscellaneous - Kami Redmond, C.M.ALara - 08/08/2015 8:19 AM CDT Adult Boiler Testing Technician Intake/History Adult Boiler Testing Technician Intake/History Entered On: 08/08/2015 8:19 CDT Performed On: 08/08/2015 8:19 CDT by KAMI REDMOND [facility] Intake Temperature Core : 36.5 DegC(Converted to: 97.7 DegF) Peripheral Pulse Rate : 62 /min Systolic Blood Pressure : 121 mmHg Diastolic Blood Pressure : 71 mmHg NIBP Mean : 88 mmHg KAMI REDMOND [facility] - 08/08/2015 8:22 CDT Chief Complaint : blood in both ear canals KAMI REDMOND [facility] - 08/08/2015 8:19 CDT General Info Information Given By : Patient Preferred Communication Mode : Verbal Languages : Urdu Is Patient Female and 13-50 no hysterectomy : No KAMI REDMOND [facility] - 08/08/2015 8:19 CDT Subjective Pain Symptoms : No KAMI REDMOND [facility] - 08/08/2015 8:19 CDT Dependent Habits Exposure to Tobacco Smoke : Other: former Smoking Status : Former smoker Tobacco 2A : Yes Tobacco Use/Currently Using : No Tobacco Use/Last 30 Days : No Tobacco Use/Last 12 months : No KAMI REDMOND [facility] - 08/08/2015 8:19 CDT Caffeine Use Grid Caffeine Use : Current Type : Coffee Frequency : Daily KAMI REDMOND [facility] - 08/08/2015 8:19 CDT Source: [facility] [employer] Document Id: [id number] CDT!7 documented in this encounter Plan of Treatment Not on filedocumented as of this encounter Visit Diagnoses Not on filedocumented in this encounter Additional Health Concerns Assessment Noted Time PHQ-9 Depression Total Score: 2 03/08/2015 11:16 AM CS T documented as of this encounter
--- OUTSIDE RECORDS SUMMARY | 2022-03-12 08:32 | XMS_ITS | Encounter Summary ---
:1940 Author Organization [facility] Address [address] [place] [address] Care Team Providers Name Role Phone Unavailable Primary Care Provider Unavailable Reason for Visit Reason Comments Nausea Pt states he had onset of br ief chest pain and some nausea at 0600 this am denies pain on admission Encounter Details Date Type Department Care Team Description 04/01/2017 Emergency [place] [facility] Bharath Myers, Nausea And Vomiting (Primary Dx); Department M.D. [address] [place], [place] [phone] Social History Tobacco Use Types Packs/Day Years Used Date Smoking Tobacco: Former Smokeless Tobacco: Never Sex Assigned at Date Recorded Not on file documented as of this encounter Last Filed Vital Signs Vital Sign Reading Time Taken Comments Blood Pressure 118/68 04/01/2017 1:30 PM RISK ANALYST Pulse 74 04/01/2017 1:30 PM RISK ANALYST Temperature 37 ??C (98.6 ??F) 04/01/2017 1:39 PM RISK ANALYST Respiratory Rate - - Oxygen Saturation 92% 04/01/2017 1:30 PM RISK ANALYST Inhaled Oxygen Concentration - - Weight 69.2 kg (152 lb 8.9 oz) 04/01/2017 1:45 PM RISK ANALYST Height - - Body Mass Index 24.52 06/25/2016 8:20 AM RISK ANALYST documented in this encounter Discharge Instructions Discharge InstructionsBharath Myers M.D. - 04/01/2017 2:49 PM CST Please reseek care if you develop persistent vomiting and diarrhea and inability to tolerate oral intake. Please also seek care if you develop chest pain, shortness of breath, or persistent lightheadedness. ANALYST AttachmentsThe following attachments cannot be sent through Care Everywhere. Nausea and Vomiting, Adult (Persian)Diarrhea, Adult, Hmpq-jm-Xjwp (Persian) documented in this encounter Medications at Time [...] suggests that it was the tartrate formulation. fqolarsogruz-bpidzrzo-zzl Take 1 tablet by 0 06/0608/15/2018 ifrah [...] strength in upper and lower extremities. Normal uhnr-ri-ktwe, pribml-yc-plzo, and rapid alternating movements. Normal gait. Skin: [...] this does not feel like his prior [place]. EKG shows evidence of possible inferior infarct [...] arrhythmogenic right ventricular dysplasia, Brugada syndrome, HOCM, Rulzm-Twpyplmxf-Akidt or QTC prolongation. 1501 Chest X-ray is [...] 04/01/17 1513 Bharath Myers M.D. 04/01/17 1613 ANALYST documented in this encounter Plan of Treatment Not on filedocumented as of this encounter Procedures Procedure Name Priority Date/Time Associated Comments Diagnosis DX CHEST AP OR PA RAD - Semiurgent 04/01/2017 1:27 Res ults for this AND LATERAL 2 (Fast; most ED PM RISK ANALYST procedure ar e in VIEWS patients; some the results inpatients) section. HEPATIC FUNCTION STAT 04/01/2017 1:18 Results for this PANEL, S PM RISK ANALYST procedure are i n the results section. CBC WITH STAT 04/01/2017 1:18 Results for this DIFFERENTIAL, B PM RISK ANALYST procedure ar e in the results section. TROPONIN T, 5TH STAT 04/01/2017 1:18 Results f or this GEN, P PM RISK ANALYST procedure are i n the results section. LIPASE, S/P STAT 04/01/2017 1:18 Results for this PM RISK ANALYST procedure are i n the results section. LACTATE, B/P STAT 04/01/2017 1:18 Results for this PM RISK ANALYST procedure are i n the results section. BASIC METABOLIC STAT 04/01/2017 1:18 Results f or this PANEL, S/P PM RISK ANALYST procedure are i n the results section. ECG STAT 04/01/2017 1:01 Results for this PM RISK ANALYST procedure are i n the results section. documented in this encounter Results DX Chest AP or PA and Lateral 2 Views (04/01/2017 1:27 PM RISK ANALYST) Anatomical Region Laterality Modality Chest N/A Digital Radiography Specimen (Source) Anatomical Collection Method Collection Time Re ceived Time Location / / Volume Laterality 04/01/2017 1:42 PM RISK ANALYST Impressions 04/01/2017 1:43 PM RISK ANALYST IMPRESSION: Cardiac silhouette is not enlarged. No pneumothorax. No lung infiltrate. Right shoulder arthroplasty. Narrative 04/01/2017 1:43 PM RISK ANALYST EXAM: DX CHEST AP OR PA AND [...] PROCE PONCHO Troponin T (04/01/2017 1:18 PM RISK ANALYST) athologist Signature Troponin T, S <0.01 <0.01 ng/mL 04/01/2017 [facility] 1:56 PM RISK ANALYST [facility] Comment: Biotin has been identified by the [place] as a potential interfering substance. ??Higher concentr ations of biotin may be found in multivitamins, hair/nail supple ments, and workout supplements. ??If the result does not [facility] clinical observations, repeat testing after patient refrains fr om the use of supplements for at least 12 hours. Specimen Anatomical Collection Method Collection Time Receive d Time (Source) Location / / Volume Laterality Blood (Blood, 04/01/2017 1:18 PM 04/01/20 17 1:20 Venous) RISK ANALYST PM RISK ANALYST Bharath Myers M.D. LAB BLOOD ADD-ON Performing Organization Address City/[facility] Phon e Number [address] [address] [place] [facility] Lipase (04/01/2017 1:18 PM RISK ANALYST) athologist [facility] Lipase, S 21 13 - 60 U/L 04/01/2017 [facility] 1:56 PM [facility] Specimen Anatomical Collection Method Collection Time Receive d Time (Source) Location / / Volume Laterality Blood (Blood, 04/01/2017 1:18 PM 04/01/20 17 1:21 Venous) RISK ANALYST PM RISK ANALYST Bharath Myers M.D. LAB BLOOD ADD-ON Performing Organization Address [facility] Phon e Number [address] [address] [place] [facility] Lactate (04/01/2017 1:18 PM RISK ANALYST) athologist Signature Lactate, P 2.0 0.6 - 2.3 04/01/2017 [facility] mmol/L 1:36 PM RISK ANALYST [facility] Specimen Anatomical Collection Method Collection Time Receive d Time (Source) Location / / Volume Laterality Blood (Blood, 04/01/2017 1:18 PM 04/01/20 17 1:21 Venous) RISK ANALYST PM RISK ANALYST Bharath Myers M.D. LAB BLOOD NON ADD-ON Performing Organization Address City/State/ZIP Code Phon e Number [facility]- [address] [place] [id number] [place] [facility] (ABNORMAL) Hepatic Function Panel (04/01/2017 1:18 PM RISK ANALYST) Patholo gist Method Time Signature Bilirubin, Total, S 1.4 (H) <=1.2 04/01/2017 [facility] mg/dL 1:56 PM [facility] Bilirubin, Direct, S 0.2 0.0 - 0.3 04/01/2017 [facility] mg/dL 1:56 PM [facility] Aspartate 45 8 - 48 04/01/2017 [facility] Aminotransferase U/L 1:57 PM [facility] Alanine 53 7 - 55 04/01/2017 [facility] Aminotransferase U/L 1:56 PM [facility] Alkaline 160 (H) 45 - 115 04/01/2017 [facility] Phosphatase, S U/L 1:56 PM [facility] Albumin, S 4.2 3.5 - 5.0 04/01/2017 [facility] g/dL 1:56 PM [facility] Protein, Total, S 6.7 6.3 - 7.9 04/01/2017 [facility] g/dL 1:56 PM [facility] Specimen Anatomical Collection Method Collection Time Receive d Time (Source) Location / / Volume Laterality Blood (Blood, 04/01/2017 1:18 PM 04/01/20 17 1:21 Venous) RISK ANALYST PM RISK ANALYST Bharath Myers M.D. LAB BLOOD ADD-ON Performing Organization Address City/State/ZIP Code Phon e Number [facility]- [address] [place] [id number] [place] [facility] BMP (Basic Metabolic Panel) (04/01/2017 1:18 PM RISK ANALYST) P athologist Signature Potassium, S 4.2 3.6 - 5.2 04/01/2017 [facility] mmol/L 1:56 PM [facility] Sodium, S 143 135 - 145 04/01/2017 [facility] mmol/L 1:56 PM [facility] Chloride, S 102 98 - 107 04/01/2017 [facility] mmol/L 1:56 PM [facility] Bicarbonate, S 27 22 - 29 04/01/2017 [facility] mmol/L 1:56 PM [facility] Anion Gap 14 7 - 15 04/01/2017 [facility] 1:56 PM [facility] BUN (Blood Urea 9 8 - 24 04/01/2017 [facility] Nitrogen), S mg/dL 1:56 PM [facility] Creatinine 0.99 0.74 - 04/01/2017 [facility] 1.35 mg/dL 1:56 PM [facility] eGFR 74 >=60 04/01/2017 [facility] Non-Black/Afric mL/min/BSA 1:56 PM [facility]- an Haitian [place] [facility] Comment: ----ADDITIONAL INFORMATION---- Estimated GFR calculated using the 2009 CKD_EPI creatinine equation. eGFR-Black/ 85 >=60 mL/min/BSA 2016 1:56 PM [facility] Comment: ----ADDITIONAL INFORMATION---- Estimated GFR calculated using the 2009 CKD_EPI creatinine equation. Calcium, Total, S 9.5 8.9 - 10.1 mg/dL 04/01/2017 1 :56 PM [facility] Glucose, S 123 70 - 140 mg/dL 04/01/2017 1:56 PM [facility] Specimen Anatomical Collection Method Collection Time Receive d Time (Source) Location / / Volume Laterality Blood (Blood, 04/01/2017 1:18 PM 04/01/20 17 1:21 Venous) RISK ANALYST RISK ANALYST Bharath Myers M.D. LAB BLOOD ADD-ON Performing Organization Address City/State/ZIP Code Phon e Number [facility]- [id number] [address] [place] [facility] (ABNORMAL) CBC with Differential (04/01/2017 1:18 PM RISK ANALYST) [facility] gist Method Time Signature Hemoglobin 14.9 13.2 - 04/01/2017 [facility] 16.6 g/dL 1:28 PM [facility] Hematocrit 44.5 38.3 - 04/01/2017 [facility] 48.6 % 1:28 PM [facility] Erythrocytes 4.88 4.35 - 04/01/2017 [facility] 5.65 1:28 PM RISK ANALYST [facility] x10(12)/[facility] MCV 91.2 78.2 - 04/01/2017 [facility] 97.9 fL 1:28 PM [facility] RBC Distrib Width 13.6 11.8 - 04/01/2017 [facility] 14.5 % 1:28 PM [facility] Platelet Count 198 135 - 317 04/01/2017 [facility] x10(9)/L 1:28 PM [facility] Leukocytes 16.2 (H) 3.4 - 9.6 04/01/2017 [facility] x10(9)/L 1:28 PM [facility] [employer] [facility] Neutrophils 14.73 (H) 1.56 - 04/01/2017 [facility] 6.45 1:28 PM [facility] x10(9)/[facility] Lymphocytes 0.91 (L) 0.95 - 04/01/2017 [facility] 3.07 1:28 PM RISK ANALYST [facility] x10(9)/[facility] Monocytes 0.54 0.26 - 04/01/2017 [facility] 0.81 1:28 PM RISK ANALYST [facility] x10(9)/[facility] Eosinophils 0.01 (L) 0.03 - 04/01/2017 [facility] 0.48 1:28 PM RISK ANALYST [facility] x10(9)/[facility] Basophils 0.02 0.01 - 04/01/2017 [facility] 0.08 1:28 PM [facility] x10(9)/[facility] Specimen Anatomical Collection Method Collection Time Receive d Time (Source) Location / / Volume Laterality Blood (Blood, 04/01/2017 1:18 PM 04/01/20 17 1:20 Venous) RISK ANALYST PM RISK ANALYST Bharath Myers M.D. LAB BLOOD ADD-ON Performing Organization Address City/State/ZIP Code Phon e Number [facility]- [address] [address] [place] [facility] ECG 12 Lead (04/01/2017 1:01 PM RISK ANALYST) [facility] gist Method Time Signature Ventricular 78 BPM MUSE Rate ECG/Min MA Interval 178 ms MUSE QRSD Interval 82 ms MUSE QT Interval 376 ms MUSE QTC Interval 428 ms MUSE P [place] 39 degrees MUSE R [place] -12 degrees MUSE T Wave [place] 20 degrees MUSE Clinical Normal sinus rhythm MUSE Diagnosis Cannot rule out Inferior infarct When compared with ECG of 25-JUN-2016 09:01, Vent. rate has increased BY ??29 BPM Minimal criteria for Inferior infarct are now present Specimen Anatomical Collection Method Collection Time Receive d Time (Source) Location / / Volume Laterality 04/01/2017 1:01 PM 7 1:11 RISK ANALYST PM RISK ANALYST Narrative This result has an attachment that [...] 1,000 mL New Bag 04/01/2017 1:32 PM RISK ANALYST 1,000 mL 1,000 mL, intravenous, Once, On 04/01/17 at 1325, For 1 dose documented in this encounter Active and Recently Administered Medications Times are shown in RISK ANALYST. Scheduled Medication Order 03/30/2017 03/31/2017 04/01/2017 NaCl [...]
--- OUTSIDE RECORDS SUMMARY | 2022-03-12 08:32 | XMS_ITS | Encounter Summary ---
:1940 Author Organization [facility] Address [address] [place] [address] Care Team Providers Name Role Phone Unavailable Primary Care Provider Unavailable Reason for Visit Outpatient (Routine) - Closed Specialty Diagnoses / Procedures Referred By Contact Refer red To Contact Diagnoses Cataract Senile Nuclear Sclerosis Right Raymundo Muniz M.D. [address] [phone] Referral ID Status Reason Start Date Expiration Date Visits Requ ested Visits Authorized [id number] Closed 05/01/2017 10/28/2017 1 1 Encounter Details Date Type Department Care Team Description 06/30/2017 Nurse Only Department of General Sandro Muniz M.D. [address] [place] [phone] Surgery in [facility] Gena Quinn, RSelvin [address] [place] [phone] [phone] Social History Tobacco Use Types Packs/Day [...] a SARI visit on 06/30/17. Surgery Nurse Package Collector Anesthesia Risk Assessment: Do you have difficulties lying flat? no Comment: Do you have an implanted cardiac device?no. Teaching: Preoperative education was done with (x) patient () other: It was confirmed the patient/family member had received the following preoperative education sheets: It was confirmed the patient/family member had received the following preoperative education sheets: Preparing for Your Surgery ([id number]),Surgical Site Infections ([id number]), Speak Up: Antibiotics ([id number]), Smoke Free, Advice for patients and visitors ([id number]), Managing Your Pain ([id number]) with the [employer] pamphlet ([id number]), Cataract Surgery: Required Appointments and Instructions ([id number]), and Financial Information for the Surgical Patient ([id number]), Preparing for Cataract Surgery Instructions ([id number]). These were reviewed in detail. The patient was instructed to bring the cataract eye kit and their eye drops the day of surgery. In addition, the patient was educated on lifting restrictions of 20 pounds for first week after surgery,using bewo-ugd-bjmfduq artificial tears for scratchy dry eyes and [...] appointments: 1st po with surgeon or physician cosmetic sales assistant: Dr. Miranda's office ERCIAL LIGHT FIXTURE ASSEMBLER documented in this encounter Plan of Treatment Not on filedocumented as of this encounter Visit Diagnoses Diagnosis Preanesthetic Medical Exam - Primary Cataract Senile Nuclear Sclerosis Right documented in this encounter Additional Health Concerns Assessment Noted Time PHQ-9 Depression Total Score: 2 03/08/2015 11:16 AM CS T documented as of this encounter
--- OUTSIDE RECORDS SUMMARY | 2022-03-12 08:32 | XMS_ITS | Encounter Summary ---
:1940 Author Organization [facility] Address [address] [place] [address] Care Team Providers Name Role Phone Unavailable Primary Care Provider Unavailable Encounter Details Date Type Department Care Team Description 07/07/2017 Hospital Encounter [facility] OR [address]mundo Mun[address] [place], [place] [address] [place], [place] [address] [place], [place] [phone] (Wo rk) Social History Tobacco Use Types Packs/Day Years Used Date Smoking Tobacco: Former Smokeless Tobacco: Never Alcohol Use Standard Drinks/Week Comments No 0 (1 standard drink = 0.6 oz pure alcoho l) Sex Assigned at Date Recorded Not on file documented as of this encounter Last Filed Vital Signs Vital Sign Reading Time Taken Comments Blood Pressure 110/77 07/07/2017 9:27 AM BAG MACHINE HELPER Pulse 59 07/07/2017 9:27 AM BAG MACHINE HELPER Temperature 36.4 ??C (97.5 ??F) 07/07/2017 8:47 AM BAG MACHINE HELPER Respiratory Rate 16 07/07/2017 8:47 AM BAG MACHINE HELPER Oxygen Saturation 95% 07/07/2017 9:27 AM BAG MACHINE HELPER Inhaled Oxygen Concentration - - Weight - [...] suggests that it was the tartrate formulation. ygpbwqvijigx-kilgpkuq-wj Take 1 tablet by 0 06/2508/15/2018 rrous [...] Implant Name Type Inv. Item Serial No. Bleach Supervisor Lot No. LRB No. Used Action TENCNIS IOL Ocular Lens [id number] Ann [id number] Right 1 Implanted Raymundo Muniz M.D. PREOPERATIVE [...] The nucleus was grooved centrally and deeply myrbrfi58 degrees and cracked in half. Each nuclear [...] at 1 day postop. Raymundo Muniz M.D. MACHINE HELPER documented in this encounter Plan of Treatment Not on filedocumented as of this encounter Procedures Procedure Name Priority Date/Time Associated Diagnosis Comme nts EXTRACTION CATARACT WITH 07/07/2017 8:23 AM Cataract S enile INSERTION INTRAOCULAR BAG MACHINE HELPER Nuclear Sclerosis LENS Right documented in this encounter Visit Diagnoses Diagnosis Cataract Senile Nuclear Sclerosis Right - Primary documented in this encounter Administered Medications Inactive Administered Medications - up to 3 most recent administrations Medication Order MAR Action Action Date Dose Rate Site brimonidine 0.2 % ophthalmic Given 07/07/2017 9:31 AM BAG MACHINE HELPER 1 drop Right Eye solution 1 drop (for_ALPHAGAN) 1 drop, right eye, 2 times daily, First dose on Fri07/07/17 at 0930 cyclopentolate-phenylephrine 0.125-1.25 % Given 07/07/2017 7:25 AM BAG MACHINE HELPER 1 drop ophthalmic solution 1 drop (for_DILATING DROPS) 1 drop, right eye, Once, On Fri07/07/17 at 0715, For 1 dose, Pre-Op, Apply over cornea in operative eye, towards superior fornix and towards inferior fornix. Apply at least 30 minutes prior to case tetracaine (PF) 0.5 % ophthalmic Given 07/07/2017 8:59 AM BAG MACHINE HELPER 1 drop Right Eye solution 1 drop (for_ALTACAINE) 1 drop, right eye, Every 5 min, First dose on Fri07/07/17 at 0715, For 4 doses, Pre-Op, in operative eye Given 07/07/2017 7:21 AM BAG MACHINE HELPER 1 drop Given 07/07/2017 7:18 AM BAG MACHINE HELPER 1 drop documented in this encounter Active and Recently Administered Medications Times are shown in BAG MACHINE HELPER. Scheduled Medication Order 07/05/2017 07/06/2017 07/07/2017 brimonidine [...]
--- OUTSIDE RECORDS SUMMARY | 2022-03-12 08:32 | XMS_ITS | Encounter Summary ---
:1940 Author Organization [facility] Address [address] [place] [address] Care Team Providers Name Role Phone Unavailable Primary Care Provider Unavailable Encounter Details Date Type Department Care Team Description 07/01/2016 Hospital Encounter [facility] Ricardo Bethea M.D., Ph.D. [phone] [phone] (Wo rk) Social History Tobacco [...] suggests that it was the tartrate formulation. biwohiacpkzb-mjbdvdkl-deq Take 1 tablet by 0 06/0608/15/2018 ifrah [...] Historical Provider Ser - 07/01/2016 11:59 PM CHIMNEY BUILDER BRICK Coding Summary-Paper Based CODING DATE: 07/04/2016 FINAL CA [facility] STATUS: * Discharged to Home [...] DAY Date Saved: 07/04/2016 01:09 pm Source: [facility] [employer] Document Id: [id number] Miscellaneous - Tea Givens M.D. - 07/01/2016 1:52 PM CST From: TEA GIVENS MD To: [place] [facility] Nurse Rodrick; Sent: 07/01/2016 13:52:31 CHIMNEY BUILDER BRICK Call, His ultrasound shows diffuse fatty liver (hepatic steatosis). To prevent this from progressingto a more significant disease state, he should eat a lower carb diet. Source: [facility] [employer] Document Id: [id number] documented in this encounter Plan of Treatment Not on filedocumented as of this encounter Visit Diagnoses Not on filedocumented in this encounter Additional Health Concerns Assessment Noted Time PHQ-9 Depression Total Score: 2 03/08/2015 11:16 AM CS T documented as of this encounter
--- OUTSIDE RECORDS SUMMARY | 2022-03-12 08:32 | XMS_ITS | Encounter Summary ---
:1940 Author Organization [facility] Address [address] [place] [address] Care Team Providers Name Role Phone Unavailable Primary Care Provider Unavailable Encounter Details Date Type Department Care Team Description 07/17/2017 Abstract Department of Family Medicine, Provider, Historical [facility], in [place], [place] [address] [place] [address] Social History Tobacco Use Types Packs/Day [...]
--- OUTSIDE RECORDS SUMMARY | 2022-03-12 08:32 | XMS_ITS | Encounter Summary ---
:1940 Author Organization [facility] Address [address] [place] [address] Care Team Providers Name Role Phone Unavailable Primary Care Provider Unavailable Encounter Details Date Type Department Care Team Description 03/08/2015 Hospital Encounter [facility] Oh Lynch M.D. [address] [place] [address] (Wo rk) Social History Tobacco [...] CST PHQ-9 PHQ-9 Entered On: 03/08/2015 11:16 MANOMETER TECHNICIAN Performed On: 03/08/2015 11:16 MANOMETER TECHNICIAN by KEI GONZALEZ RN PHQ-9 Little interest [...] 2 KEI GONZALEZ RN - 03/08/2015 11:16 MANOMETER TECHNICIAN Source: [employer] Document Id: [id number] MANOMETER TECHNICIAN!12 METER TECHNICIAN Miscellaneous - Kei Gonzalez R.N. - 03/08/2015 10:55 AM CST Geremias 03/23/15 From: KEI GONZALEZ RN ([facility] Surgery Nurse Container Crane Operator) To: Anesthesia; Sent: 03/08/2015 10:55:18 MANOMETER TECHNICIAN Subject: Geremias 03/23/15 SURGERY NURSE ULTRASOUND COORDINATOR Skin Alert Assessment: Complete this section only [...] Yes Comment: _ Do you have any gnosticist or other objection to having a blood transfusion? (x)No (_)Yes Scheduling Follow-Up: Data Deliverables Manager requested: (x) N/A (_) Yes Comment: _ [...] then no styling products in the hair. -full service vending driver required for same day surgery patients, [...] completed PHQ 9 and gave patient [facility] Shoulder Replcement Surgery, Patient Education (_)Reviewed parental presence program (_)Reviewed tonsillectomy teaching sheet (_)Reviewed ear tube teaching sheet (_)Pre op PT appt (total shoulders only) Post op appointments: 1st po with surgeon or physician family assistant: (x) made (_)TBD (_)Audiology appointment (PE tubes), (_)2 days post op ultrasound to r/o DVT (VNUS closure), (_)PO OT appt made (Hand surgery if requested) Source: [facility] [employer] Document Id: [id number] Electronically signed by Conversion, [facility] Awning Hanger Supervisor [id number] at 09/30/2016 8:33 AM CDT documented in this encounter Plan of Treatment Not on filedocumented as of this encounter Visit Diagnoses Not on filedocumented in this encounter Additional Health Concerns Assessment Noted Time PHQ-9 Depression Total Score: 2 03/08/2015 11:16 AM CS T documented as of this encounter
--- OUTSIDE RECORDS SUMMARY | 2022-03-12 08:32 | XMS_ITS | Encounter Summary ---
:1940 Author Organization [facility] Address [address] [place] [address] Care Team Providers Name Role Phone Unavailable Primary Care Provider Unavailable Reason for Visit Reason Comments Communication Encounter Details Date Type Department Care Team Description 06/30/2017 Clinical Communication Department of Gena Quinn mmunication Ophthalmology in Fabricio Matthews R.N. [place], [place] [address] [facility] [address] [place] [phone] Social History Tobacco Use Types Packs/Day Years Used Date Smoking Tobacco: Former Smokeless Tobacco: Never Alcohol Use Standard Drinks/Week Comments No 0 (1 standard drink = 0.6 oz pure alcoho l) Sex Assigned at Date Recorded Not on file documented as of this encounter Miscellaneous Notes Telephone Encounter - Tammy Maria C.O.A. - 06/30/2017 2:36 PM CST Ketorolac was sent to the pharmacy HEATER OPERATOR Telephone Encounter - Gena Quinn R.N. - 06/30/2017 11:37 AM CST Patient is scheduled for cataract surgery 3/5/18, but he did not receive his Diclofenac. Please callkwame Etienne in [place]. HEATER OPERATOR documented in this encounter Plan of Treatment Not on filedocumented as of this encounter Visit Diagnoses Not on filedocumented in this encounter Additional Health Concerns Assessment Noted Time PHQ-9 Depression Total Score: 2 03/08/2015 11:16 AM CS T documented as of this encounter
--- OUTSIDE RECORDS SUMMARY | 2022-03-12 08:32 | XMS_ITS | Encounter Summary ---
:1940 Author Organization [facility] Address [address] [place] [address] Care Team Providers Name Role Phone Unavailable Primary Care Provider Unavailable Encounter Details Date Type Department Care Team Description 06/30/2017 Ancillary Department of Flavio, Cataract Senil e Nuclear Sclerosis Right (Primary Dx); Procedure Ophthalmology in [facility] Raymundo Soares M.D. Cataract Senile Nuclear Sclerosis Left [id number] [place] [phone] Social History Tobacco Use [...] esults for this BIOMETRY (OCB) - OU PRESSING MACHINE TENDER Nuclear Sclerosis pro cedure are in - BOTH EYES Right the results Cataract Senile section. Nuclear Sclerosis Left CORNEAL TOPOGRAPHY - Routine 06/30/2017 11:15 AM Cataract Eugenia le Results for this OU - BOTH EYES PRESSING MACHINE TENDER Nuclear Sclerosis procedur e are in Right the results Cataract Senile section. Nuclear Sclerosis Left documented in this encounter Results Ocular Coherence Biometry (OCB) - OU - Both Eyes (06/30/2017 11:17 AM PRESSING MACHINE TENDER) Specimen (Source) Anatomical Location Collection Method / Collectio n Time Received Time / Laterality Volume Raymundo Paz M.D. - 08/15/2017 9: 49 AM CDT MODALITY Right Eye The modality was IOL Master. Left Eye The modality was IOL Master. IOL MEASUREMENTS Right Eye IOL Measurements: Axial length was 24.11 mm. K-1 was 42.48 diopters. K1 [place] was 112.00 degrees. K-2 was 43.43. K2 [place] was 22.00 degrees. WTW was 11.80 mm. ACD was 2.59 mm. Lens thicknes s was 5.43 mm. Left Eye IOL Measurements: Axial length was 23.66 mm. K-1 was 42.90 diopters. K1 [place] was 74.00 degrees. K-2 was 43.60. K 2 [place] was 164.00 degrees. WTW was 11.90 mm. ACD was 2.67 mm. Lens thicknes s was 5.22 mm. Raymundo Muniz M.D. OPHTH PHOTOGRAPHY Corneal Topography - OU - Both Eyes (06/30/2017 11:15 AM PRESSING MACHINE TENDER) Specimen (Source) Anatomical Location Collection Method / [...]
--- OUTSIDE RECORDS SUMMARY | 2022-03-12 08:32 | XMS_ITS | Encounter Summary ---
:1940 Author Organization [facility] Address [address] [place] [address] Care Team Providers Name Role Phone Unavailable Primary Care Provider Unavailable Encounter Details Date Type Department Care Team Description 05/22/2017 Abstract Department of Family Medicine, Provider, Historical [facility], in [place], [place] [address] [place] [address] Social History Tobacco Use Types Packs/Day [...]
--- OUTSIDE RECORDS SUMMARY | 2022-03-12 08:32 | XMS_ITS | Encounter Summary ---
:1940 Author Organization [facility] Address [address] [place] [address] Care Team Providers Name Role Phone Unavailable Primary Care Provider Unavailable Encounter Details Date Type Department Care Team Description 07/21/2017 Anesthesia Event [facility] MAIN OR Cr Britt, ED, DOCK SUPERINTENDENT [id number] Jax Stoner, ED, DOCK SUPERINTENDENT, [place] [phone] Anesthesia Record Procedure Summary Procedure Name Responsible Anesthesia Start Anesthesia Stop Anesthesiologist Time Time EXTRACTION CATARACT Cr Britt APRN, 07/21/17 0901 0 07/21/17 0926 WITH INSERTION DOCK SUPERINTENDENT INTRAOCULAR LENS (Left) Events Date Time Event [...] h andoff to the receiving staff [facility]. Identified the patient [...] Procedure Summary Date: 07/21/17 Room / Location: [address] / [facility] OR Anesthesia Start: 900 Anesthesia [...] LIST Relevant Problems (+) Polymyalgia Rheumatica (HCC) [place] '12 TIA GERD Lt Vocal Cord Paralysis [...] patient / legal guardian, or through an statistical analyst; patient evaluated and approved for anesthesia / [...]
--- OUTSIDE RECORDS SUMMARY | 2022-03-12 08:32 | XMS_ITS | Encounter Summary ---
:1940 Author Organization [facility] Address [address] [place] [address] Care Team Providers Name Role Phone Unavailable Primary Care Provider Unavailable Encounter Details Date Type Department Care Team Description 04/07/2015 Hospital Encounter [facility] Rodger Miranda M.D. [address] [place], [place] [phone] (Wo rk) Social History [...] Duenas M.D. - 04/07/2015 8:32 AM CST [id number] CHIEF COMPLAINT/REASON FOR VISIT Follow up right [...] DUENAS MD On: 04/07/2015 12:30 PM Source: [facility] MHSDOLBEYNONRADSYS Document Id: [id number] NG DIRECTOR documented in this encounter Miscellaneous Notes Miscellaneous - Marv Duenas M.D. - 04/07/2015 8:57 AM CST Ambulatory Patient Summary [facility] [address], [address] [place] [id number] Visit Information Name: RYLEY VINES [facility] Number: [id number] Current Date: 04/07/2015 08:57:05 Physicians [...] if you dont have one. Go to [email or web address] and click on Create Your Account. Then, follow the directions to complete the online form. Youll be asked for your [facility] number which you can find at the top of this document. Your Goals/Additional instructions: Source: [facility] POWERCHART Document Id: [id number] NG DIRECTOR Miscellaneous - Marv Duenas M.D. - 04/07/2015 8:57 AM CST Ambulatory Discharge Medication List [facility] [address], [address] [place], [place] [id number] Visit Information Name: RYLEY VINES [facility] Number: [id number] Visit Date: 04/07/2015 08:57:04 Attending [...] MD Signed On:07-APR-2015 08:56:51 Additional Information: Source: [facility] POWERCHART Document Id: [id number] NG DIRECTOR Miscellaneous - Brodie Nielsen, L.P.N. - 04/07/2015 8:43 AM CST Adult Tube Pusher Intake/History Adult Tube Pusher Intake/History Entered On: 04/07/2015 8:43 CODING DIRECTOR Performed On: 04/07/2015 8:43 CODING DIRECTOR by BRODIE NIELSEN LPN Intake Chief Complaint : po rigfht shoulder BRODIE NIELSEN LPN - 04/07/2015 8:43 CODING DIRECTOR General Info Information Given By : Patient Languages : Georgian Is Patient Female and 13-50 no hysterectomy : No BRODIE NIELSEN LPN - 04/07/2015 8:43 CODING DIRECTOR Subjective Pain Symptoms : No BRODIE NIELSEN LPN - 04/07/2015 8:43 CODING DIRECTOR Dependent Habits Exposure to Tobacco Smoke : Other: former Smoking Status : Former smoker Tobacco 2A : Yes Tobacco Use/Currently Using : No Tobacco Use/Last 30 Days : No Tobacco Use/Last 12 months : No BRODIE NIELSEN LPN - 04/07/2015 8:43 CODING DIRECTOR Caffeine Use Grid Caffeine Use : Current Type : Coffee Frequency : Daily BRODIE NIELSEN LPN - 04/07/2015 8:43 CODING DIRECTOR Source: [employer] Document Id: [id number] CODING DIRECTOR!21 NG DIRECTOR documented in this encounter Plan of Treatment Not on filedocumented as of this encounter Visit Diagnoses Not on filedocumented in this encounter Additional Health Concerns Assessment Noted Time PHQ-9 Depression Total Score: 2 03/08/2015 11:16 AM CS T documented as of this encounter
--- OUTSIDE RECORDS SUMMARY | 2022-03-12 08:32 | XMS_ITS | Encounter Summary ---
:1940 Author Organization [facility] Address [address] [place] [address] Care Team Providers Name Role Phone Unavailable [...]
--- OUTSIDE RECORDS SUMMARY | 2022-03-12 08:32 | XMS_ITS | Encounter Summary ---
:1940 Author Organization [facility] Address [address] [place] [address] Care Team Providers Name Role Phone Unavailable Primary Care Provider Unavailable Encounter Details Date Type Department Care Team Description 07/10/2016 Hospital Encounter HX [facility] Kalyan Taveras ROO M.D. [address] [place] [phone] (wo rk) Social History Tobacco Use Types Packs/Day Years Used Date Smoking Tobacco: Former Sex Assigned at Date Recorded Not on file documented as of this encounter Last Filed Vital Signs Vital Sign Reading Time Taken Comments Blood Pressure 133/78 07/10/2016 12:09 PM VASCULAR MANAGER Pulse 61 07/10/2016 12:09 PM VASCULAR MANAGER Temperature - - Respiratory Rate 20 07/10/2016 12:09 PM VASCULAR MANAGER Oxygen Saturation - - Inhaled Oxygen Concentration - - Weight - - Height - - Body Mass Index - - documented in this encounter Discharge Summaries Britt Patterson R.N. - 07/10/2016 12:21 PM CST Hospital Discharge Instructions [address] [id number] Patient Discharge Instructions Name: RYLEY DURÁN Current Date: 07/10/2016 12:21:54 : 1940 12:00 AM [facility] Number: [id number] Patient Address: [address] [place] [phone] Patient Primary Care Provider: Name: PCP, MAKENZIE Phone: Discharge Diagnosis: [facility] in [place] would like to thank you for allowing [...] if you dont have one. Go to [email or web address] and click on Create Your Account. Then, follow the directions to complete the online form. Youll be asked for your [facility] number which you can find at the top of this document. LUIS ARMANDO Reed MARK ARNOLD , have received the attached patient education materials/instructions and haveverbalized understanding: Patient Signature Date Time Care Provider Signature Date Time 79451 Endoscopy/Colonoscopy/Flexible Sigmoidoscopy Post-Procedure Discharge Instructions Date: Sunday, [...] call your doctor or the Emergency Department ([phone])if you have any questions OR notice any [...] grain cereal with bran (Chex, Raisin Bran, [place] Bran), oatmeal, rolled oats, granola,wheat flakes, brown [...] all kinds OTHER: Popcorn, any spices ?? [id number] Inez Olivera, [address] [place] [address], [place] [address]. All rights reserved. This information is not [...] needed, you may be told to take [id number] stool softeners. To help relieve pain, antispasmodic [...] the option of having surgery with you. [place] to Colon Health Help keep your colon healthy with a diet that includes plenty of high-fiber fruits, vegetables, and whole grains. Drink plenty of liquids like water and juice. ?? [id number] Inez [facility], [address] [place] [address], [place] [address]. All rights reserved. This information is not intended as a substitute for professional medical care. Always follow your healthcare professional's instructions. This document has images extracted. Please consider using [employer] for all your patient education needs. Source: [facility] POWERCHART Document Id: [id number] ULAR MANAGER Britt Patterson R.N. - 07/10/2016 12:21 PM CST Hospital Discharge Medication List [address] [id number] Discharge Medication List Name: RYLEY DURÁN Current Date: 07/10/2016 12:21:53 : 1940 12:00 AM [facility] Number: [id number] Patient Address: [address] [place] [id number] Patient Primary Care Provider: Name: PCPMAKENZIE Phone: Discharge Diagnosis: [facility] in [place] would like to thank you for allowing [...] PINKY ORDONEZ MD Signed On:10-JUL-2016 11:26:59 Source: [facility] [employer] Document Id: [id number] ULAR MANAGER Britt Patterson R.N. - 07/10/2016 12:20 PM CST Discharge Summary Discharge Summary Entered On: 07/10/2016 12:21 VASCULAR MANAGER Performed On: 07/10/2016 12:20 VASCULAR MANAGER by BRITT PATTERSON RN DC Information Discharged to : Home independently, Home with family care Current Home Treatments : None Home Equipment : None Professional Skilled Services : None Special Services and Community Resources : None Mode of Discharge : Ambulatory Discharge Transportation : Private vehicle Accompanied By : Ground Crewman Mission Support, Family Date/Time of Discharge : 07/10/2016 12:20 VASCULAR MANAGER Add'l Discharge Comments : patient has been discharged [facility] - she had an errand to the airport BRITT PATTERSON RN - 07/10/2016 12:20 VASCULAR MANAGER Source: [facility] [employer] Document Id: [id number] VASCULAR MANAGER!12 ULAR MANAGER documented in this encounter Medications at [...] suggests that it was the tartrate formulation. [id number] Take 1 tablet by 0 06/0608/15/2018 ifrah [...] Updated Preprocedure Checklist Entered On: 07/10/2016 10:24 VASCULAR MANAGER Performed On: 07/10/2016 10:21 VASCULAR MANAGER by MICHEAL BENNETT RN Checklist Last Fluid Intake : 07/10/2016 7:00 VASCULAR MANAGER Last Food Intake : 07/09/2016 12:00 VASCULAR MANAGER MICHEAL BENNETT RN - 07/10/2016 10:21 VASCULAR MANAGER Surgery Prep Grid Contacts/Glasses Removed : Yes Dentures Removed : NA (Comment: Full top and bottom [MICHEAL BENNETT RN - 07/10/2016 10:25 VASCULAR MANAGER] ) Hairpins/Hairpiecies Removed : NA Hearing Aid Removed : Yes (Comment: R THOMAS [MICHEAL BENNETT RN - 07/10/2016 10:25 VASCULAR MANAGER] ) Home Prep Complete : Yes Jewelry/Piercing Removed : NA Makeup/Nail Indian Removed : NA Oral Hygiene : NA Preop Scrub AM of Surgery : NA Preop Scrub Night Prior to Surgery : NA Prosthesis Removed : NA Tampon Removed : NA Verified - No hair products used : NA Voided carton forming machine adjuster to procedure : Yes Wearing Patient Gown : Yes MICHEAL BENNETT RN - 07/10/2016 10:21 VASCULAR MANAGER Patient Rights Grid Blood Consent Signed : NA Surgical/Procedure Consent Signed : Yes MICHEAL BENNETT RN - 07/10/2016 10:21 VASCULAR MANAGER Family Location : , [place], going to the airport to pick someone up. Will be back to get patient. MICHEAL BENNETT RN - 07/10/2016 10:21 VASCULAR MANAGER Checklist II Patient Safety Grid Allergy Band on and Verified : NA (Comment: Patient states NKDA, side effect from statins [MICHEAL BENNETT RN - 07/10/2016 10:25 VASCULAR MANAGER] ) Anesthesia Consult : Yes Band on [...] NA MICHEAL BENNETT RN - 07/10/2016 10:21 VASCULAR MANAGER RN Who Verified Site : MICHEAL BENNETT RN Physician Who Verified Site : PINKY ORDONEZ MD, KASEY J RN - 07/10/2016 10:21 VASCULAR MANAGER SORAYA Screening Known Obstructive Sleep Apnea : No - NOT diagnosed with SORAYA SORAYA Score : No qualifying data available. SORAYA Results : No qualifying data available. MICHEAL BENNETT RN - 07/10/2016 10:21 VASCULAR MANAGER SORAYA Assessment Do you have high blood pressure or have you been told to take medication for high blood pressure? : No Frequency of Snoring : Never Frequency of Gasping, Choking, Snorting : Never Total Number of Historical Features : 0 Neck Circumference (cm) : 40/41 Total Sleep Apnea Clinical Score Calc : 3 MICHEAL BENNETT RN - 07/10/2016 10:21 VASCULAR MANAGER Valuables/Belongings Valuables/Belongings Grid Valuables at Bedside Clothes, Patient Valuables : Jacket, Pants, Shirt, Shoes, Undergarments MICHEAL BENNETT RN - 07/10/2016 10:25 VASCULAR MANAGER Room Orientation/Facility Policy Reviewed : Yes Home Medication Disposition : None brought in with patient MICHEAL BENNETT RN - 07/10/2016 10:25 VASCULAR MANAGER Education Preprocedure Education Grid Procedure Type : Colonoscopy Education Topics : Anesthesia/Sedation, Pain management, Patient rights and responsibilities, Plan of care, Tubes/Drains/IV's Individuals Taught : Patient Barriers to Learning : None evident Teaching Method : Explanation, Printed materials Teaching Evaluation : Verbalizes understanding MICHEAL BENNETT RN - 07/10/2016 10:25 VASCULAR MANAGER Preop Holding Mode of Arrival : Ambulatory Preoperative Orders Complete : Yes MICHEAL BENNETT RN - 07/10/2016 10:25 VASCULAR MANAGER Advance Directive Advanced Directives : No Advance Directive Additional Information : No MICHEAL BENNETT RN - 07/10/2016 10:25 VASCULAR MANAGER Vital Signs Temperature Core : 36.0 DegC(Converted to: 96.8 DegF) (LOW) Peripheral Pulse Rate : 67 /min Respiratory Rate : 12 /min (LOW) Systolic Blood Pressure : 135 mmHg Diastolic Blood Pressure : 86 mmHg NIBP Mean : 102 mmHg SpO2 : 96 % Oxygen Therapy : Room air MICHEAL BENNETT RN - 07/10/2016 10:25 VASCULAR MANAGER Allergy (As Of: 07/10/2016 10:26:32 VASCULAR MANAGER) Allergies (Active) statins Estimated Onset Date: Unspecified ; Reactions: myalgia ; Created By: SILVER ABDUL MD; Reaction Status: Active ; Category: Drug ; Substance: statins ; Type: Side Effect ; Updated By: SILVER ABDUL MD; Reviewed Date: 07/10/2016 10:26 VASCULAR MANAGER Source: [facility] POWERCHART Document Id: [id number] VASCULAR MANAGER!86 ULAR MANAGER Pinky Ordonez M.D. - 07/10/2016 12:00 AM [...] Pinky Ordonez M.D./dirk cc: Silver Abdul M.D. [facility] [place] [address] Electronically Signed By: PINKY ORDONEZ MD On: 07/16/2016 09:29 AM Source: [facility] MHSDOLBEYNONRADSYS Document Id: [id number] documented in this encounter Nursing Notes Micheal Bennett R.N. - 07/10/2016 10:26 AM CST Day Surgery Admission History/Asmt Adult Document Has Been Updated Day Surgery Admission History/Asmt Adult Entered On: 07/10/2016 10:31 VASCULAR MANAGER Performed On: 07/10/2016 10:26 VASCULAR MANAGER by MICHEAL BENNETT RN General Info Preferred Name : Ryley Admitted From : Non-Health Care Facility Point of Origin Mode of Arrival : Ambulatory Present in Room During Exam/Procedure : Spouse Preferred Communication Mode : Verbal Information Given By : Patient Languages : Kazakh Is Patient Female and 13-50 no hysterectomy : No MICHEAL BENNETT RN - 07/10/2016 10:26 VASCULAR MANAGER Allergy (As Of: 07/10/2016 10:31:05 VASCULAR MANAGER) Allergies (Active) statins Estimated Onset Date: Unspecified ; Reactions: myalgia ; Created By: SILVER ABDUL MD; Reaction Status: Active ; Category: Drug ; Substance: statins ; Type: Side Effect ; Updated By: SILVER ABDUL MD; Reviewed Date: 07/10/2016 10:26 VASCULAR MANAGER Anesth/Transfusion Anesthesia/Transfusions : Prior anesthesia reaction Anesthesia Reaction : Excessive post op nausea Transfusion Acceptable in Emergency : Yes Denominational/Other Objections to Blood Transfusions : No MICHEAL BENNETT RN - 07/10/2016 10:26 VASCULAR MANAGER ID Screen Drug Resistant Organism : No MICHEAL BENNETT RN - 07/10/2016 10:26 VASCULAR MANAGER Nutrition Have you recently lost weight without trying? : No Decreased Appetite Nutrition : No Tube Feedings or Parenteral Nutrition : No MST Score : 0 Home Diet : Regular Appetite : Excellent MICHEAL BENNETT RN - 07/10/2016 10:26 VASCULAR MANAGER Home Environment Current Daily Living Assistance : None Living Situation : Home independently Home Equipment : None Sensory Deficits : None Mobility Assistance Prior to Admission : Independent Current Home Treatments : None Professional Skilled Services : None Special Services and Community Resources : None MICHEAL BENNETT RN - 07/10/2016 10:26 VASCULAR MANAGER Dependent Habits Exposure to Tobacco Smoke : Other: former Smoking Status : Former smoker Tobacco 2A : Yes Tobacco Use/Currently Using : No Tobacco Use/Last 30 Days : No Tobacco Use/Last 12 months : No MICHEAL BENNETT RN - 07/10/2016 10:26 VASCULAR MANAGER Caffeine Use Grid Caffeine Use : Current Type : Coffee Frequency : Daily MICHEAL BENNETT RN - 07/10/2016 10:26 VASCULAR MANAGER Psychosocial Adult Domestic Abuse Concerns : None Behavioral Health Screen/Safety Assmt : No Denominational Preference : Advent MICHEAL BENNETT RN - 07/10/2016 10:26 VASCULAR MANAGER Advance Directive Advanced Directives : No Advance Directive Additional Information : No MICHEAL BENNETT RN - 07/10/2016 10:26 VASCULAR MANAGER Educ Needs Patient/Family Education Needs : Activity limitations/expectations, Plan of care, Safety, fall, Treatments/Procedures/Tests MICHEAL BENNETT RN - 07/10/2016 10:26 VASCULAR MANAGER Learning Style Preference Adult Grid Patient : Verbal explanation, Printed materials Family : Verbal explanation MICHEAL BENNETT RN - 07/10/2016 10:26 VASCULAR MANAGER Outpatient Assessment Procedural Respiratory : Respirations unlabored, [...] distress MICHEAL BENNETT RN - 07/10/2016 10:26 VASCULAR MANAGER Psycho/Emotional Affect/Behavior : Calm, Cooperative, Appropriate Pain Symptoms : No MICHEAL BENNETT RN - 07/10/2016 10:26 VASCULAR MANAGER Coping Grid Identifies effective strategies : Yes [...] Yes MICHEAL BENNETT RN - 07/10/2016 10:26 VASCULAR MANAGER Safety Grid Vision, Hearing, Mobility Adequate to Meet Safety Needs : Yes MICHEAL BENNETT RN - 07/10/2016 10:26 VASCULAR MANAGER Peripheral IV Peripheral IV Assess/Intervention Grid Peripheral IV #1 IV Activity : Start Number of Attempts : 1 Date of Insertion : 07/10/2016 VASCULAR MANAGER IV Site : Hand Laterality : Right Catheter Size : 20 Catheter Type : Over the needle Site Condition : No complications Dressing/ Activity : Transparent Flow/ Patency : No complications IV Equipment/Supplies : Regular Comments (Comment: Inserted by Reno Patterson RN [MICHEAL BENNETT RN - 07/10/2016 10:26 VASCULAR MANAGER] ) MICHEAL BENNETT RN - 07/10/2016 10:26 VASCULAR MANAGER Hawk Sensory Perception Hawk : No impairment Moisture Hawk : Rarely moist Activity Hawk : Walks frequently Mobility Hawk : No limitations Nutrition Hawk : Excellent Friction and Shear Hawk : No apparent problem Hawk Score : 23 MICHEAL BENNETT RN - 07/10/2016 10:26 VASCULAR MANAGER Falls Assessment Fall Injury Risk History of Falls : No Patient at Risk for Falls : No Fall Injury Risk Factors : None of the below Risk Factors Patient has increased Fall Injury Risk : No MICHEAL BENNETT RN - 07/10/2016 10:26 VASCULAR MANAGER Hendrich II Fall Risk Confusion/Disorientation Hendrich : [...] 2 MICHEAL BENNETT RN - 07/10/2016 10:26 VASCULAR MANAGER DC Needs Anticipated Discharge Date : 07/10/2016 VASCULAR MANAGER Discharge To, Anticipated : Home with family residential Treatments, Anticipated : None Home Equipment, Anticipated : None Professional Skilled Services, Anticipated : None Special Serv & Comm Res, Anticipated : None Needs Assistance with Transportation : No Needs Assistance at Home Upon Discharge : No MICHEAL BENNETT RN - 07/10/2016 10:26 VASCULAR MANAGER Source: [facility] POWERCHART Document Id: [id number] VASCULAR MANAGER!126 ULAR MANAGER Micheal Bennett R.N. - 07/04/2016 4:24 PM [...] (x) No. Comment: _ Do you have quaker or other objection to having a blood [...] at home (x) Do you have a car pick up driver. Please have their telephone number (x) NPO 2 hours prior to arrival (x) Check in information (x) Be sure to have verified your scheduled procedure with your insurance company [employer] Do not drive for 24 hours after procedure. Please have a car pick up driver with you to take you home. Arrange for a person to stay with you at least 5 hours after procedure. If you have any questions at any time please call . Electronically Signed By: MICHEAL BENNETT RN On: 07/09/2016 02:29 PM Modified by and Electronically Signed by: MICHEAL BENNETT RN On: 07/09/2016 02:29 PM Source: [facility] POWERCHART Document Id: [id number] ULAR MANAGER documented in this encounter OR Notes Op [...] APRN, CRNA On: 07/10/2016 12:45 PM Source: [employer] POWERCHART Document Id: [id number] ULAR MANAGER documented in this encounter Miscellaneous Notes Miscellaneous - Arleth Ryan R.N. - 07/31/2016 3:08 PM CDT Reminder Msg From: ARLETH RYAN RN To: [place] Colonoscopy Pool; Sent: 07/31/2016 15:08:06 CDT Show up: 05/05/2021 15:08:00 VASCULAR MANAGER Subject: Reminder Msg Due Date/Time: 07/03/2021 15:08:00 VASCULAR MANAGER Please Remember to: Repeat scope in 5 years. PATIENT: ( ) Call Patient ( ) Ask Patient to ( ) ( ) Call Relative ( ) Schedule Patient ( ) ( ) Call for Avionics Integration Engineer ( ) Follow up on Results ( ) Other: PROVIDER: ( ) Call Physician ( ) Call Pharmacist ( ) Call Lab ( ) Other: Special Instructions: Comments: Source: [facility] [employer] Document Id: [id number] Miscellaneous - Britt Patterson, R.N. - 07/10/2016 12:20 PM CST Valuables/Belongings Valuables/Belongings Entered On: 07/10/2016 12:21 VASCULAR MANAGER Performed On: 07/10/2016 12:20 VASCULAR MANAGER by BRITT PATTERSON RN Valuables/Belongings Valuables/Belongings Grid Valuables at Bedside Clothes, Patient Valuables : Jacket, Pants, Shirt, Shoes, Undergarments BRITT PATTERSON RN - 07/10/2016 12:21 VASCULAR MANAGER Room Orientation/Facility Policy Reviewed : Yes Belongings Sent Home With : all with patient Home Medication Disposition : None brought in with patient BRITT PATTERSON RN - 07/10/2016 12:21 VASCULAR MANAGER Source: [facility] [employer] Document Id: [id number] VASCULAR MANAGER!8 ULAR MANAGER Miscellaneous - Cheryl, Radha Provider Ser - 07/10/2016 12:20 PM VASCULAR MANAGER Coding Summary-Paper Based CODING DATE: 07/15/2016 FINAL [facility] STATUS: * Discharged to Home or Self Care PAYOR: Medicare APC DESCRIPTION 5311 Level 1 Lower GI Procedures ADMIT DX: REASON FOR VISIT DX: FINAL DX: PRINCIPAL: Z12.11 Encounter for screening for malignant neoplasm of colon SECONDARY: Z86.010 Personal history of colonic polyps K57.30 Diverticulosis of large intestine without perforation or abscess without bleeding 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 - 07/10/2016 12:09 PM CST Adult Postprocedure Assessment Adult Postprocedure Assessment Entered On: 07/10/2016 12:12 VASCULAR MANAGER Performed On: 07/10/2016 12:09 VASCULAR MANAGER by BRITT PATTERSON RN Vital Signs Temperature Core : 36.0 DegC(Converted to: 96.8 DegF) (LOW) Peripheral Pulse Rate : 61 /min Respiratory Rate : 20 /min Systolic Blood Pressure : 133 mmHg Diastolic Blood Pressure : 78 mmHg NIBP Mean : 96 mmHg SpO2 : 96 % Oxygen Therapy : Room air BRITT PATTERSON RN - 07/10/2016 11:57 VASCULAR MANAGER General Level of Consciousness : Alert Orientation : Oriented x 3 Skin Color : Normal for ethnicity Skin Description : Dry Skin Temperature : Warm Pain Symptoms : No BRITT PATTERSON RN - 07/10/2016 11:57 VASCULAR MANAGER Cardiovascular Heart Rhythm : Regular Nail Bed Color : Icard Capillary Refill : Less than 2 seconds BRITT PATTERSON RN - 07/10/2016 11:57 VASCULAR MANAGER Respiratory Respirations : Unlabored Respiratory Pattern : Regular All Lobes Breath Sounds : BRITT Dean 07/10/2016 11:57 VASCULAR MANAGER GI/ Nausea Symptoms : No BRITT PATTERSON 07/10/2016 11:57 VASCULAR MANAGER Integumentary Skin Color : Normal for ethnicity Skin Description : Dry Skin Temperature : Warm BRITT PATTERSON 07/10/2016 11:57 VASCULAR MANAGER I&O Oral Intake : 120 mL BRITT PATTERSON 07/10/2016 11:57 VASCULAR MANAGER Neurologic Swallowing Difficulty/Aspiration Risk : None Extremity Movement : Equal Facial Symmetry : Symmetric Characteristics of Speech : BRITT Dean 07/10/2016 11:57 VASCULAR MANAGER Activity Patient Position : Elevate head of bed 45 degrees Activity Status ADL : Up ad naomy Activity Assistance : Independent BRITT PATTERSON 07/10/2016 11:57 VASCULAR MANAGER PARSAP Activity Status : Moves 4 extremities [...] Score : 20 BRITT PATTERSON 07/10/2016 11:57 VASCULAR MANAGER Vale Vale Agitation Sedation Scale (RASS) : Alert and calm RASS Score : 0 BRITT PATTERSON 07/10/2016 11:57 VASCULAR MANAGER Hawk Sensory Perception Hawk : No impairment Moisture Hawk : Rarely moist Activity Hawk : Walks frequently Mobility Hawk : No limitations Nutrition Hawk : Excellent Friction and Shear Hawk : No apparent problem Hawk Score : 23 BRITT PATTESRON 07/10/2016 11:57 VASCULAR MANAGER Falls Assessment Fall Injury Risk History of Falls : No Patient at Risk for Falls : No Fall Injury Risk Factors : None of the below Risk Factors Patient has increased Fall Injury Risk : No BRITT PATTERSON 07/10/2016 11:57 VASCULAR MANAGER Hendrich II Fall Risk Confusion/Disorientation Hendrich : [...] 1 BRITT PATTERSON RN - 07/10/2016 11:57 VASCULAR MANAGER Safe Patient Handling Safe Pt Handling Independent : Yes - No equipment needed Safe Pt Handling Equipment Rec : No Equipment Needed BRITT PATTERSON RN - 07/10/2016 11:57 VASCULAR MANAGER Education General Patient Education Power[employer] Topics : Activity limitations/expectations, Discharge instructions/Medication list, Physical limitations, Plan of care, Printed materials, Safety, fall, When to call health care provider Individuals Taught : Patient Barriers to Learning : None evident Teaching Method : Explanation Teaching Evaluation : Verbalizes understanding BRITT PATTERSON RN - 07/10/2016 11:57 VASCULAR MANAGER [facility] [employer] [facility] Document Id: [id number] VASCULAR MANAGER!91 ULAR MANAGER Miscellaneous - Britt Patterson RSelvin - 07/10/2016 11:48 AM CST Adult Postprocedure Assessment Adult Postprocedure Assessment Entered On: 07/10/2016 11:51 VASCULAR MANAGER Performed On: 07/10/2016 11:48 VASCULAR MANAGER by BRITT PATTERSON RN Vital Signs Peripheral Pulse Rate : 66 /min Respiratory Rate : 20 /min Systolic Blood Pressure : 139 mmHg Diastolic Blood Pressure : 79 mmHg NIBP Mean : 99 mmHg SpO2 : 97 % Oxygen Therapy : Room air BRITT PATTERSON RN - 07/10/2016 11:48 VASCULAR MANAGER General Level of Consciousness : Alert Orientation : Oriented x 3 Skin Color : Normal for ethnicity Skin Description : Dry Skin Temperature : Warm Pain Symptoms : No BRITT PATTERSON RN - 07/10/2016 11:48 VASCULAR MANAGER Cardiovascular Heart Rhythm : Regular Nail Bed Color : Icard Capillary Refill : Less than 2 seconds BRITT PATTERSON RN - 07/10/2016 11:48 VASCULAR MANAGER Respiratory Respiratory Patient Stated Symptoms : None Respirations : Unlabored Distress : None Respiratory Pattern : Regular Cough and Deep Breathe : Done Cough : None BRITT PATTERSON RN - 07/10/2016 11:48 VASCULAR MANAGER GI/ Nausea Symptoms : No BRITT PATTERSON RN - 07/10/2016 11:48 VASCULAR MANAGER Integumentary Skin Color : Normal for ethnicity Skin Description : Dry Skin Temperature : Warm BRITT PATTERSON 07/10/2016 11:48 VASCULAR MANAGER Peripheral IV Peripheral IV Assess/Intervention Grid Peripheral IV #1 IV Activity : Discontinue Removal : Catheter intact, Hemostasis within expected timeframe Date of Insertion : 07/10/2016 VASCULAR MANAGER Discontinued Date : 07/10/2016 VASCULAR MANAGER IV Site : Hand Laterality : Right Catheter Size : 20 Catheter Type : Over the needle Site Condition : No complications Drainage Description : None Infiltration Score : 0 Phlebitis Score : 0 BRITT PATTERSON 07/10/2016 11:48 VASCULAR MANAGER I&O Oral Intake : 120 mL Other Intake : 400 mL (Comment: I.V. fluids [BRITT PATTERSON 07/10/2016 11:48 VASCULAR MANAGER] ) BRITT PATTERSON 07/10/2016 11:48 VASCULAR MANAGER Nutrition Morning Snack : 100 % BRITT PATTERSON 07/10/2016 11:48 VASCULAR MANAGER Neurologic Swallowing Difficulty/Aspiration Risk : None Extremity Movement : Equal Facial Symmetry : Symmetric Characteristics of Speech : Appropriate for age BRITT PATTERSON 07/10/2016 11:48 VASCULAR MANAGER Activity Patient Position : Elevate head of bed 45 degrees BRITT PATTERSON 07/10/2016 11:48 VASCULAR MANAGER PARSAP Activity Status : Moves 4 extremities [...] Score : 20 BRITT PATTERSON 07/10/2016 11:48 VASCULAR MANAGER Vale Vale Agitation Sedation Scale (RASS) : Alert and calm RASS Score : 0 BRITT PATTERSON 07/10/2016 11:48 VASCULAR MANAGER Hawk Sensory Perception Hawk : No impairment Moisture Hawk : Rarely moist Activity Hawk : Walks frequently Mobility Hawk : No limitations Nutrition Hawk : Excellent Friction and Shear Hawk : No apparent problem Hawk Score : 23 BRITT PATTERSON 07/10/2016 11:48 VASCULAR MANAGER Falls Assessment Fall Injury Risk History of Falls : No Patient at Risk for Falls : No Fall Injury Risk Factors : None of the below Risk Factors Patient has increased Fall Injury Risk : No BRITT PATTERSON RN - 07/10/2016 11:48 VASCULAR MANAGER [place] II Fall Risk Confusion/Disorientation Hendrich : [...] 1 BRITT PATTERSON RN - 07/10/2016 11:48 VASCULAR MANAGER Safe Patient Handling Safe Pt Handling Independent : Yes - No equipment needed Safe Pt Handling Equipment Rec : No Equipment Needed BRITT PATTERSON RN - 07/10/2016 11:48 VASCULAR MANAGER Source: [employer] Document Id: [id number] VASCULAR MANAGER!101 ULAR MANAGER Miscellaneous - Pinky Ordonez M.D. - 07/10/2016 11:27 AM CST Hospital Patient Education The following Patient Education Materials have been given to the patient: Patient Education Materials: Discharge Instructions - Adult (CUSTOM) Ambulatory DIET, [place] ED/Trauma Understanding Diverticulosis and Diverticulitis [address] Endoscopy/Colonoscopy/Flexible Sigmoidoscopy Post-Procedure Discharge Instructions Date: Sunday, [...] call your doctor or the Emergency Department ([phone])if you have any questions OR notice any [...] grain cereal with bran (Chex, Raisin Bran, [place] Bran), oatmeal, rolled oats, granola,wheat flakes, brown [...] all kinds OTHER: Popcorn, any spices ?? [id number] Inez Olivera, [address] [facility], [place] [address]. All rights reserved. This information is not [...] needed, you may be told to take dugk-vby-ggrkyoh stool softeners. To help relieve pain, antispasmodic [...] the option of having surgery with you. [place] to Colon Health Help keep your colon healthy with a diet that includes plenty of high-fiber fruits, vegetables, and whole grains. Drink plenty of liquids like water and juice. ?? [phone] Inez [facility], [address] [place] [address], [place] [address]. All rights reserved. This information is not intended as a substitute for professional medical care. Always follow your healthcare professional's instructions. This document has images extracted. Please consider using [employer] for all your patient education needs. Source: [facility] POWERCHART Document Id: [id number] ULAR MANAGER documented in this encounter Plan of Treatment Not on filedocumented as of this encounter Visit Diagnoses Not on filedocumented in this encounter Additional Health Concerns Assessment Noted Time PHQ-9 Depression Total Score: 2 03/08/2015 11:16 AM CS T documented as of this encounter
--- OUTSIDE RECORDS SUMMARY | 2022-03-12 08:32 | XMS_ITS | Encounter Summary ---
:1940 Author Organization [facility] Address [address] [place] [address] Care Team Providers Name Role Phone Unavailable Primary Care Provider Unavailable Encounter Details Date Type Department Care Team Description 04/11/2017 Abstract Department of Family Medicine, Provider, Historical [facility], in [place], [place] [address] [place] [address] [facility] [phone] Social History Tobacco Use Types Packs/Day Years [...]
--- OUTSIDE RECORDS SUMMARY | 2022-03-12 08:32 | XMS_ITS | Encounter Summary ---
:1940 Author Organization [facility] Address [address] [place] [address] Care Team Providers Name Role Phone Unavailable Primary Care Provider Unavailable Encounter Details Date Type Department Care Team Description 07/07/2017 Surgery [facility] NEIL OR Raymundo Muniz, EXTRACTION CATARACT [address] [place] [address] BL[address] M.DLara WITH INSERTION [place], [place] [address] INTRAOCULAR LENS [address] [place], [place] [phone] (Wo rk) Social History Tobacco Use Types Packs/Day Years Used Date Smoking Tobacco: Former Smokeless Tobacco: Never Alcohol Use Standard Drinks/Week Comments No 0 (1 standard drink = 0.6 oz pure alcoho l) Sex Assigned at Date Recorded Not on file documented as of this encounter Last Filed Vital Signs Vital Sign Reading Time Taken Comments Blood Pressure 121/81 07/07/2017 9:00 AM SOLAR ENERGY ENGINEER Pulse 58 07/07/2017 9:00 AM SOLAR ENERGY ENGINEER Temperature 36.4 ??C (97.5 ??F) 07/07/2017 8:47 AM SOLAR ENERGY ENGINEER Respiratory Rate 16 07/07/2017 8:47 AM SOLAR ENERGY ENGINEER Oxygen Saturation 94% 07/07/2017 9:00 AM SOLAR ENERGY ENGINEER Inhaled Oxygen Concentration - - Weight - [...] suggests that it was the tartrate formulation. [id number] Take 1 tablet by 0 06/2508/15/2018 rrous [...] Implant Name Type Inv. Item Serial No. Remote Broadcast Technician Lot No. LRB No. Used Action TENCNIS IOL Ocular Lens [id number] [place] [id number] Right 1 Implanted Raymundo Muniz M.D. PREOPERATIVE [...] The nucleus was grooved centrally and deeply degrees and cracked in half. Each nuclear [...] at 1 day postop. Raymundo Muniz M.D. 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 documented in this encounter Administered Medications Inactive Administered Medications - up to 3 most recent administrations Medication Order MAR Action Action Date Dose Rate Site balanced salt solution ophthalmic Given 07/07/2017 8:32 AM SOLAR ENERGY ENGINEER 1 5 mL irrigation (for_BSS) As needed, [...] injection (for_ZI NACEF) Given 07/07/2017 8:32 AM SOLAR ENERGY ENGINEER 1 mg As needed, Starting on Fri07/07/17 at 0832, Intra-Op cyclopentolate-phenylephrine 0.125-1.25 % Given 07/07/2017 7:25 AM SOLAR ENERGY ENGINEER 1 drop ophthalmic solution 1 drop (for_DILATING DROPS) 1 drop, right eye, Once, On Fri07/07/17 at 0715, For 1 dose, Pre-Op, Apply over cornea in operative eye, towards superior fornix and towards inferior fornix. Apply at least 30 minutes prior to case EPINEPHrine 0.3 mg in balanced salt solution Given 09/2017 8:32 AM SOLAR ENERGY ENGINEER 500 mL plus 500 mL ophthalmic irrigation As needed, Starting on Fri07/07/17 at 0832, Intra-Op povidone-iodine 5 % ophthalmic solution Given 07/07/2017 8:32 AM SOLAR ENERGY ENGINEER 30 mL (for_BETADINE) As needed, Starting on Fri07/07/17 at 0832, Intra-Op tetracaine (PF) 0.5 % ophthalmic solution Given 07/07/2017 8:32 AM SOLAR ENERGY ENGINEER 1 drop (for_ALTACAINE) As needed, Starting on Fri07/07/17 at 0832, Intra-Op tetracaine (PF) 0.5 % ophthalmic Given 07/07/2017 8:59 AM SOLAR ENERGY ENGINEER 1 drop Right Eye solution 1 drop (for_ALTACAINE) 1 drop, right eye, Every 5 min, First dose on Fri07/07/17 at 0715, For 4 doses, Pre-Op, in operative eye Given 07/07/2017 7:21 AM SOLAR ENERGY ENGINEER 1 drop Given 07/07/2017 7:18 AM SOLAR ENERGY ENGINEER 1 drop documented in this encounter Active and Recently Administered Medications Times are shown in SOLAR ENERGY ENGINEER. Scheduled Medication Order 07/05/2017 07/06/2017 07/07/2017 brimonidine [...]
--- OUTSIDE RECORDS SUMMARY | 2022-03-12 08:32 | XMS_ITS | Encounter Summary ---
:1940 Author Organization [facility] Address [address] [place] [address] Care Team Providers Name Role Phone Unavailable Primary Care Provider Unavailable Encounter Details Date Type Department Care Team Description 05/12/2015 Hospital Encounter HX [facility] Rodger Miranda M.D. [address] [place], [place] [phone] (Wo rk) Social History [...] Duenas M.D. - 05/12/2015 8:14 AM CST [id number] CHIEF COMPLAINT/REASON FOR VISIT Follow up status [...] DUENAS MD On: 05/15/2015 07:26 AM Source: [facility] [email or web address] Document Id: [id number] MATIC HOIST OPERATOR documented in this encounter Miscellaneous Notes Miscellaneous - Marv Duenas M.D. - 05/12/2015 9:32 AM CST Ambulatory Patient Summary [facility] [address], [address] [place], [place] [id number] Visit Information Name: RYLEY VINES [facility] Number: [id number] Current Date: 05/12/2015 09:32:50 Physicians [...] you dont have one. Go to [email or web address] and click on Create Your Account. Then, follow the directions to complete the online form. Youll be asked for your [facility] number which you can find at the top of this document. Your Goals/Additional instructions: Source: [facility] POWERCHART Document Id: [id number] MATIC HOIST OPERATOR Miscellaneous - Marv Duenas M.D. - 05/12/2015 9:32 AM CST Ambulatory Discharge Medication List [facility] [address], [address] [place], [place] [phone] Visit Information Name: RYLEY VINES [facility] Number: [id number] Visit Date: 05/12/2015 09:32:49 Attending [...] MD Signed On:12-MAY-2015 09:32:43 Additional Information: Source: [facility] POWERCHART Document Id: [id number] MATIC HOIST OPERATOR Miscellaneous - Annemarie Mcgee LLaraPLaraNLara - 05/12/2015 9:05 AM CST Adult Quill Cleaner Intake/History Adult Quill Cleaner Intake/History Entered On: 05/12/2015 9:05 PNEUMATIC HOIST OPERATOR Performed On: 05/12/2015 9:05 PNEUMATIC HOIST OPERATOR by ANNEMARIE MCGEE LPN Intake Chief Complaint : Patient here for post op right TSA, [id number], c/o right hand swelling, x-rays obtained ANNEMARIE MCGEE LPN - 05/12/2015 9:05 PNEUMATIC HOIST OPERATOR General Info Information Given By : Patient Preferred Communication Mode : Verbal Languages : Ghanaian Is Patient Female and 13-50 no hysterectomy : No ANNEMARIE MCGEE LPN - 05/12/2015 9:05 PNEUMATIC HOIST OPERATOR Subjective Pain Symptoms : No ANNEMARIE MCGEE LPN - 05/12/2015 9:05 PNEUMATIC HOIST OPERATOR Dependent Habits Exposure to Tobacco Smoke : Other: former Smoking Status : Former smoker Tobacco 2A : Yes Tobacco Use/Currently Using : No Tobacco Use/Last 30 Days : No Tobacco Use/Last 12 months : No ANNEMARIE MCGEE LPN - 05/12/2015 9:05 PNEUMATIC HOIST OPERATOR Caffeine Use Grid Caffeine Use : Current Type : Coffee Frequency : Daily ANNEMARIE MCGEE LPN - 05/12/2015 9:05 PNEUMATIC HOIST OPERATOR Source: [email or web address] Document Id: [id number] PNEUMATIC HOIST OPERATOR!22 MATIC HOIST OPERATOR documented in this encounter Plan of Treatment Not on filedocumented as of this encounter Visit Diagnoses Not on filedocumented in this encounter Additional Health Concerns Assessment Noted Time PHQ-9 Depression Total Score: 2 03/08/2015 11:16 AM CS T documented as of this encounter
--- OUTSIDE RECORDS SUMMARY | 2022-03-12 08:32 | XMS_ITS | Encounter Summary ---
:1940 Author Organization [facility] Address [address] [place] [address] Care Team Providers Name Role Phone Unavailable Primary Care Provider Unavailable Encounter Details Date Type Department Care Team Description 06/30/2017 Ancillary Procedure Department of Raymundo Muniz [place]hthalmology [place] [address] [place] [phone] Social History Tobacco Use Types [...] esults for this BIOMETRY (OCB) - OU INDUSTRIAL SPRAYPAINTER Nuclear Sclerosis pro cedure are in - BOTH EYES Right the results Cataract Senile section. Nuclear Sclerosis Left documented in this encounter Results Ocular Coherence Biometry (OCB) - OU - Both Eyes (06/30/2017 11:17 AM INDUSTRIAL SPRAYPAINTER) Specimen (Source) Anatomical Location Collection Method / Collectio n Time Received Time / Laterality Volume Narrative Raymundo Muniz M.D. - 08/15/2017 9: 49 AM CDT MODALITY Right Eye The modality was IOL Master. Left Eye The modality was IOL Master. IOL MEASUREMENTS Right Eye IOL Measurements: Axial length was 24.11 mm. K-1 was 42.48 diopters. K1 [place] was 112.00 degrees. K-2 was 43.43. K2 [place] was 22.00 degrees. WTW was 11.80 mm. ACD was 2.59 mm. Lens thicknes s was 5.43 mm. Left Eye IOL Measurements: Axial length was 23.66 mm. K-1 was 42.90 diopters. K1 [place] was 74.00 degrees. K-2 was 43.60. K 2 [place] was 164.00 degrees. WTW was 11.90 mm. ACD was 2.67 mm. Lens thicknes s was 5.22 mm. Raymundo Muniz M.D. OPHTH PHOTOGRAPHY documented in this encounter Visit Diagnoses Not on filedocumented in this encounter Additional Health Concerns Assessment Noted Time PHQ-9 Depression Total Score: 2 03/08/2015 11:16 AM CS T documented as of this encounter
--- OUTSIDE RECORDS SUMMARY | 2022-03-12 08:32 | XMS_ITS | Encounter Summary ---
:1940 Author Organization [facility] Address [address] [place] [address] Care Team Providers Name Role Phone Unavailable Primary Care Provider Unavailable Encounter Details Date Type Department Care Team Description 06/25/2016 Hospital Encounter HX [facility] Ricardo Chang M.D., Ph.D. [address] [place] [address] [phone] (Wo rk) Social History Tobacco Use Types Packs/Day Years Used Date Smoking Tobacco: Former Sex Assigned at Date Recorded Not on file documented as of this encounter Last Filed Vital Signs Vital Sign Reading Time Taken Comments Blood Pressure 114/89 06/25/2016 8:20 AM DERMATOLOGIST Pulse 56 06/25/2016 8:20 AM DERMATOLOGIST Temperature - - Respiratory Rate 16 06/25/2016 8:20 AM DERMATOLOGIST Oxygen Saturation - - Inhaled Oxygen Concentration - - Weight 69 kg (152 lb 1.9 oz) 06/25/2016 8:20 AM DERMATOLOGIST Height 168 cm (5' 6.14) 06/25/2016 8:20 AM DERMATOLOGIST Body Mass Index 24.45 06/25/2016 8:20 AM DERMATOLOGIST documented in this encounter Medications at Time [...] suggests that it was the tartrate formulation. qpqpdcnvkmie-eahpbncl-cfe Take 1 tablet by 0 06/0608/15/2018 ifrah [...] Colon, polyp, benign Coronary Artery Disease (CAD) Quinault Vessel Diverticulosis of Colon (Without Mention of [...] Ordered: OV Est Pt Level 4 - 83100 - 25 min 2. Screening Cancer Colon Referral for colonoscopy. Ordered: OV Est Pt Level 4 - 88019 - 25 min 3. Coronary Artery Disease (CAD) Quinault Vessel Continue current medications and treatments. Pros/cons/side effects/alternatives and complications reviewed in detail. He is intolerant of statins. Ordered: nitroglycerin, 0.4 mg = 1 tab(s), SL, q5min, PRN Chest Pain, # 25 tab(s), 11 Refill(s), Maintenance, Pharmacy: [facility] EKG Notify Nurse - EKG Ordered OV Est Pt Level 4 - 77773 - 25 min 4. Elevated Blood Pressure Continue current medications and treatments. Pros/cons/side effects/alternatives and complications reviewed in detail. Ordered: CBC without Diff Comprehensive Metabolic Panel Lipid Panel* OV Est Pt Level 4 - 56332 - 25 min Urinalysis with Microscopic if Indicated 5. Vitamin D Deficiency Continue current medications and treatments. Pros/cons/side effects/alternatives and complications reviewed in detail. Ordered: 25-Hydroxyvitamin D2 and D3-Perry 25HDN OV Est Pt Level 4 - 83030 - 25 min Orders: Schedule Procedure Colonoscopy Electronically Signed By: TEA GIVENS MD On: 06/25/2016 09:04 AM Source: [facility] POWERCHART Document Id: [id number] ATOLOGIST documented in this encounter Miscellaneous Notes Telephone Encounter - Conversion, Historical Provider Ser - 07/01/2016 2:20 PM CST *Phone Message Document Contains Addenda Addendum by EVERTON GARCIA LPN on July 01, 2016 14:35:52 DERMATOLOGIST Patient aware of results and wanted to discuss lab results. From: HARDIK ONEIL (OR Family Medicine Beam Machine Operator) To: OR Family Medicine Nurse Rodrick; Sent: 07/01/2016 14:20:26 DERMATOLOGIST Subject: *Phone Message Caller is: ( x ) Patient ( ) Mother ( ) Father ( ) Spouse ( ) Daughter ( ) Son ( ) Pharmacy ( ) Other: Physician: Chon Patient MRN #: Reason for Call: Patient would like to talk about his ultrasound results from today with Dr. Givens.He wants a call back at [phone] Message: Advice/Action: Source used: ( ) Verbalizes [...] back cell phone number ( ) Source: [facility] POWERCHART Document Id: [id number] Miscellaneous - Tea Givens M.D. - 06/27/2016 7:47 PM CST Normal Results Letter June 27, 2016 RYLEY VINES [address] [place] [address] [id number] Dear RYLEY VINES, I am pleased to [...] 03/24/2015 150 - 450 Sincerely, TEA GIVENS [id number] [place] [id number] Electronic Signature Electronically Signed By: TEA GIVENS MD On: June 27, 2016 This document has images extracted. Source: [facility] POWERCHART Document Id: [id number] Electronically signed by Cheryl [facility] Facility[facility]idel Wig Maker [id number] at 10/15/2016 1:01 AM CDT Miscellaneous - Tae Givens M.D. - 06/27/2016 7:44 PM CST Addendum by WOJCIECH ELDRIDGE LPN on June 28, 2016 10:39:27 DERMATOLOGIST Left a detailed message with the below information. From: TEA GIVENS MD To: OR Family Medicine Nurse Rodrick; Sent: 06/27/2016 19:44:44 DERMATOLOGIST Call, Labs look good, except his liver enzymes are elevated. I recommend US of the liver to evaluatethis further. He shouldn't worry about this much, as there are a lot of reasons for elevated liver enzymes. I put an order for US of the liver. Source: [facility] POWERCHART Document Id: [id number] Miscellaneous - Tea Givens M.D. - 06/25/2016 8:59 AM CST Ambulatory Patient Summary [address] [place] [id number] Visit Information Name: RYLEY VINES [facility] Number: [id number] Current Date: 06/25/2016 08:59:16 [...] needed for Chest Pain New Routed to [address] [place] [address] omeprazole (Prilosec 20 mg oral delayed release [...] of Hemorrhage) Active Coronary Artery Disease (CAD) Quinault Vessel Active Your Upcoming Appointments Date Time [...] dont have one. Go to [email or web address] and click on Create Your Account. Then, follow the directions to complete the online form. Youll be asked for your [facility] number which you can find at the top of this document. Your Goals/Additional instructions: Source: [facility] POWERCHART Document Id: [id number] ATOLOGIST Miscellaneous - Tea Givens M.D. - 06/25/2016 8:59 AM CST Ambulatory Discharge Medication List [address] [place] [id number] Visit Information Name: RYLEY VINES [facility] Number: [id number] Current Date: 06/25/2016 08:59:15 [...] needed for Chest Pain New Routed to [address] [place] [address] omeprazole (Prilosec 20 mg oral delayed release [...] MD Signed On:25-JUN-2016 08:59:12 Additional Information: Source: [facility] POWERCHART Document Id: [id number] ATOLOGIST Miscellaneous - Everton Garcia L.P.N. - 06/25/2016 8:20 AM CST Adult Counter Server Intake/History Adult Counter Server Intake/History Entered On: 06/25/2016 8:25 DERMATOLOGIST Performed On: 06/25/2016 8:20 DERMATOLOGIST by EVERTON GARCIA LPN Intake Chief Complaint [...] kg/m2 EVERTON GARCIA LPN - 06/25/2016 8:20 DERMATOLOGIST General Info Information Given By : Patient Languages : Bengali Is Patient Female and 13-50 no hysterectomy : No EVERTON GARCIA LPN - 06/25/2016 8:20 DERMATOLOGIST Subjective Pain Symptoms : No EVERTON GARCIA LPN - 06/25/2016 8:20 DERMATOLOGIST Dependent Habits Exposure to Tobacco Smoke : Other: former Smoking Status : Former smoker Tobacco 2A : Yes Tobacco Use/Currently Using : No Tobacco Use/Last 30 Days : No Tobacco Use/Last 12 months : No EVERTON GARCIA LPN - 06/25/2016 8:20 DERMATOLOGIST Caffeine Use Grid Caffeine Use : Current Type : Coffee Frequency : Daily EVERTON GARCIA LPN - 06/25/2016 8:20 DERMATOLOGIST Source: [facility] POWER[facility]ART Document Id: [id number] DERMATOLOGIST!35 ATOLOGIST documented in this encounter Plan of Treatment Not on filedocumented as of this encounter Procedures Procedure Name Priority Date/Time Associated Comments Diagnosis URINALYSIS, ROUTINE Routine 06/25/2016 9:35 AM Re sults for this DERMATOLOGIST procedure are i n the results section. URINE MICROSCOPIC Routine 06/25/2016 9:35 AM Resu lts for this DERMATOLOGIST procedure are i n the results section. LIPID PANEL, S Routine 06/25/2016 9:09 AM Results for this DERMATOLOGIST procedure are i n the results section. 25-HYDROXYVITAMIN D2 Routine 06/25/2016 9:09 AM R esults for this AND D3, S DERMATOLOGIST procedure are i n the results section. CBC WITHOUT Routine 06/25/2016 9:09 AM Results f or this DIFFERENTIAL, B DERMATOLOGIST procedure ar e in the results section. COMPREHENSIVE Routine 06/25/2016 9:09 AM Results for this METABOLIC PANEL, S/P DERMATOLOGIST procedu re are in the results section. ECG Routine 06/25/2016 9:01 AM Results f or this DERMATOLOGIST procedure are i n the results section. documented in this encounter Results Urine Microscopic (06/25/2016 9:35 AM DERMATOLOGIST) athologist Signature HXUR WBC. Occ-3 HPF POWERCHART HXUR RBC. Occ-2 HPF POWERCHART Squamous Occ-3 HPF POWERCHART Epithelial Specimen Anatomical Collection Method Collection Time Receive d Time (Source) Location / / Volume Laterality Urine, First 06/25/2016 9:35 AM 7 9:35 Voided DERMATOLOGIST AM DERMATOLOGIST Tea Givens M.D., Ph.D. LAB URINE ORDERABLES Performing Organization Address City/State/ZIP Code Phon e Number POWERCHART (ABNORMAL) Urinalysis, Routine (06/25/2016 9:35 AM DERMATOLOGIST) athologist Signature Clarity Clear Clear POWERCHART HXUr Color Yellow Colorless POWERCHART Specific 1.015 POWERCHART [place], POCT, U Comment: Reference Range Specific [place]: 1.000-1.035 pH, POCT, Urine 5.5 <5.0 POWERCHART [...] Laterality Urine, First 06/25/2016 9:35 AM Voided DERMATOLOGIST Tea Givens M.D., Ph.D. LAB URINE ORDERABLES Performing Organization Address City/[facility]/ZIP Code Phon e Number POWERCHART CBC without Differential (06/25/2016 9:09 AM DERMATOLOGIST) P athologist Signature Leukocytes 6.6 3.5 - 10.5 POWERCHART X109L Erythrocytes 5.09 4.32 - 5.72 POWERCHART [id number] Hemoglobin 15.4 13.5 - 17.5 POWERCHART GDL Hematocrit 46.4 38.8 - 50.0 POWERCHART MCV 91.2 81.2 - 95.1 POWERCHART FL HX RDW 14.1 11.8 - 15.6 POWERCHART Platelet Count 208 150 - 450 POWERCHART X109L Specimen (Source) Anatomical Collection Method Collection Time Re ceived Time Location / / Volume Laterality Blood 06/25/2016 9:09 AM DERMATOLOGIST Tea Givens M.D., Ph.D. LAB BLOOD ADD-ON Performing Organization Address City/[facility] Phon e Number POWERCHART Lipid Panel (06/25/2016 9:09 AM DERMATOLOGIST) P athologist Signature Cholesterol, 176 <=199 MGDL [...] for FH and FDB is available throu [facility]: FH/ADH Genetic Reflex Mcmahan el (test ADHP). Acquired (non-genetic) causes of markedly increased LDL cholesterol include cholestatic liver disease due to the presence of LpX. If a genetic form of hypercholesterolemia is suspected, family studies including biochemical testing fo r lipids (total cholesterol,triglycerides, LDL cholesterol and HDL cholesterol) are recommended. ??Please contact the laboratory at or the on-line test catalog at [facility] for information about how to order these rachael ts or to speak with a genetic counselor. Further interpretation would require clinical information. Total Cholesterol/HDL Ratio 3 PO WERCHART Specimen (Source) Anatomical Collection Method Collection Time Re ceived Time Location / / Volume Laterality Blood 06/25/2016 9:09 AM DERMATOLOGIST Tea Givens M.D., Ph.D. LAB BLOOD ADD-ON Performing Organization Address City/State/ZIP Code Phon e Number POWERCHART (ABNORMAL) CMP (Comprehensive Metabolic Panel) (06/25/2016 9:09 AM DERMATOLOGIST) Patholo gist Method Time Signature Alanine 67 [...] POWERCHART MMOLL HXeGFR (MDRD) >60 >=60 POWERCHART [id number] 2 eGFR Black/ >60 >=60 POWERCHART Yemen[place] [id number] 2 Bilirubin, Total, S 1.2 <=1.2 POWERCHART MGDL Total Protein, S 7.6 6.3 - 7.9 POWERCHART GDL Glucose 109 70 - 139 POWERCHART MGDL Specimen (Source) Anatomical Collection Method Collection Time Re ceived Time Location / / Volume Laterality Blood 06/25/2016 9:09 AM DERMATOLOGIST Tea Givens M.D., Ph.D. LAB BLOOD ADD-ON Performing Organization Address City/State/ZIP Code Phon e Number POWERCHART 25-Hydroxyvitamin D2 and D3 (06/25/2016 9:09 AM DERMATOLOGIST) P athologist Signature HX25 HYDROXY D2 <4.0 [...] and its performa nce characteristics determined by [facility] in a manner co nsistent with CLIA requirements. This test has not been jeremias ared or approved by the U.S. Food and Drug Administration. Test Performed by: [place] [address] Certified Fraud Examiner: Coy Sherwood II, M.D., Ph.D. Specimen (Source) Anatomical Collection Method Collection Time Re ceived Time Location / / Volume Laterality Blood 06/25/2016 9:09 AM DERMATOLOGIST Tea Givens M.D., Ph.D. LAB BLOOD ADD-ON Performing Organization Address City/State/ZIP Code Phon e Number POWERCHART ECG 12 Lead (06/25/2016 9:01 AM DERMATOLOGIST) Specimen (Source) Anatomical Collection Method Collection Time Re ceived Time Location / / Volume Laterality 06/25/2016 9:01 AM DERMATOLOGIST [facility] - 06/25/2016 9:01 AM DERMATOLOGIST Test Reason : PREOP, CAD Blood Pressure [...] Organization Address City/State/ZIP Code Phon e Number [facility] [address] [place] [phone] documented in this encounter Visit Diagnoses Not on filedocumented in this encounter Additional Health Concerns Assessment Noted Time PHQ-9 Depression Total Score: 2 03/08/2015 11:16 AM CS T documented as of this encounter
--- OUTSIDE RECORDS SUMMARY | 2022-03-12 08:32 | XMS_ITS | Encounter Summary ---
:1940 Author Organization [facility] Address [address] [place] [address] Care Team Providers Name Role Phone Unavailable Primary Care Provider Unavailable Encounter Details Date Type Department Care Team Description 02/16/2016 Hospital Encounter [facility]X [facility] Rodger Miranda M.D. [address] [place], [place] [phone] (Wo rk) Social History [...] Duenas M.D. - 02/16/2016 8:29 AM CDT [id number] CHIEF COMPLAINT/REASON FOR VISIT Follow up status [...] DUENAS MD On: 02/19/2016 07:40 AM Source: [facility] MHSDOLBEYNONRADSYS Document Id: [id number] documented in this encounter Miscellaneous Notes Miscellaneous - Marv Duenas M.D. - 02/16/2016 9:19 AM CDT Ambulatory Patient Summary [facility] [address], [address] [place] [id number] Visit Information Name: RYLEY VINES [facility] Number: [id number] Current Date: 02/16/2016 09:19:18 [...] if you dont have one. Go to [email or web address] and click on Create Your Account. Then, follow the directions to complete the online form. Youll be asked for your [facility] number which you can find at the top of this document. Your Goals/Additional instructions: Source: [facility] POWERCHART Document Id: [id number] Miscellaneous - Marv Duenas M.D. - 02/16/2016 9:19 AM CDT Ambulatory Discharge Medication List [facility] [address], [address] [place], [place] [phone] Visit Information Name: RYLEY VINES [facility] Number: [id number] Current Date: 02/16/2016 09:19:18 [...] MD Signed On:16-FEB-2016 09:19:16 Additional Information: Source: [facility] POWERCHART Document Id: [id number] Miscellaneous - Colleen Sarabia L.P.N. - 02/16/2016 8:46 AM CDT Adult Security Systems Manager Intake/History Adult Security Systems Manager Intake/History Entered On: 02/16/2016 8:47 CDT Performed On: 02/16/2016 8:46 CDT by COLLEEN SARABIA LPN Intake Chief Complaint : Pt here for frc on rgiht TSA COLLEEN SARABIA LPN - 02/16/2016 8:46 CDT General Info Information Given By : Patient Languages : Dominican Is Patient Female and 13-50 no hysterectomy [...] SARABIA LPN - 02/16/2016 8:46 CDT Source: [employer] Document Id: [id number] CDT!21 documented in this encounter Plan of Treatment Not on filedocumented as of this encounter Visit Diagnoses Not on filedocumented in this encounter Additional Health Concerns Assessment Noted Time PHQ-9 Depression Total Score: 2 03/08/2015 11:16 AM CS T documented as of this encounter
--- OUTSIDE RECORDS SUMMARY | 2022-03-12 08:32 | XMS_ITS | Encounter Summary ---
:1940 Author Organization [facility] Address [address] [place] [address] Care Team Providers Name Role Phone Unavailable Primary Care Provider Unavailable Encounter Details Date Type Department Care Team Description 07/07/2017 Anesthesia Event [facility] OR La Nena Ochoa, ED, MICROCHIP SPECIALIST, DNAP [address] [place] [address] Jax Stoner, ED, MICROCHIP SPECIAL[place] [address] Anesthesia Record Procedure Summary Procedure Name Responsible Anesthesia Start Anesthesia Stop Anesthesiologist Time Time EXTRACTION CATARACT La Nena Ochoa, 07/07/17 0823 07/07 0847 WITH INSERTION DIRECTOR OF PEOPLE, MICROCHIP SPECIALIST, DNAP INTRAOCULAR LENS (Right) Events Date Time [...] h andoff to the receiving staff during [facility] ch we 1. Identified the patient [...] Procedure Summary Date: 07/07/17 Room / Location: [place] [address] CAC 2-220 / [facility] CACF OR Anesthesia Start: 822 Anesthesia [...] Post Op nausea/vomiting: none Hydration status: euvolemic CAL ACCOUNTANT Anesthesia Preprocedure Evaluation - La Nena Ochoa [...] patient / legal guardian, or through an women designer; patient evaluated and approved for anesthesia / sedation. The use of blood products not discussed MAC, minimal sedation Patient identified, chart reviewed, anesthetic plan discussed with patient, patient agrees with plan. CAL ACCOUNTANT documented in this encounter Plan of Treatment Not on filedocumented as of this encounter Visit Diagnoses Not on filedocumented in this encounter Administered Medications Inactive Administered Medications - up to 3 most recent administrations Medication Order MAR Action Action Date Dose Rate Site fentaNYL injection (for_SUBLIMAZE) Given 07/07/2017 8:26 AM MEDICAL ACCOUNTANT 25 mcg intravenous, As needed, severe pain or score 7-10 of 10, Starting on Fri07/07/17 at 0826, Anesthesia Intra-op midazolam (PF) injection (for_VERSED) Given 07/07/2017 8:26 AM MEDICAL ACCOUNTANT 1 mg As needed, Starting on Fri07/07/17 at 0826, Anesthesia Intra-op documented in this encounter Additional Health Concerns Assessment Noted Time PHQ-9 Depression Total Score: 2 03/08/2015 11:16 AM CS T documented as of this encounter
--- OUTSIDE RECORDS SUMMARY | 2022-03-12 08:32 | XMS_ITS | Encounter Summary ---
:1940 Author Organization [facility] Address [address] [place] [address] Care Team Providers Name Role Phone Unavailable Primary Care Provider Unavailable Encounter Details Date Type Department Care Team Description 07/21/2017 Hospital Encounter [facility] NEIL OR Raymundo Muniz, [address] [place] [address] BL[address] [place], [place] [address] [place], [place] [address] [place], [place] [phone] (Wo rk) Social History Tobacco Use [...] from the original note were not included. [facility] Cataract/Trabeculectomy Discharge Instructions, Eye Care When you [...] (Month DD, YYYY) Time (hh:mm) Ophthalmology at [facility] Phone Numbers: Office: [phone] Toll Free: [phone]. [phone] ??2016 [facility] Medical Education and Research Page 1 of 2 [id number] When you leave the hospital after your [...] tartrate 0 06/23/201708/15 (for_LOPRESSOR) 25 mg tablet zptvynblnqsf-mgeyonft-df Take 1 tablet by 0 06/2508/15/2018 rrous [...] Raymundo Muniz M.D. - 07/07/2017 9:35 AM SECURITY CONTROL CENTER OPERATOR History of present illness: The patient [...] Implant Name Type Inv. Item Serial No. Pre Owned Sales Manager Lot No. LRB No. Used Action [id number] Ocular Lens [id number] Ann Left 1 Implanted Raymundo Muniz M.D. [...]
--- OUTSIDE RECORDS SUMMARY | 2022-03-12 08:32 | XMS_ITS | Encounter Summary ---
:1940 Author Organization [facility] Address [address] [place] [address] Care Team Providers Name Role Phone Unavailable Primary Care Provider Unavailable Reason for Referral Outpatient (Routine) - Closed Specialty Diagnoses / Procedures Referred By Contact Refer red To Contact Diagnoses Cataract Senile Nuclear Sclerosis Right Raymundo Muniz M.D. [facility] [address] [place] [address] [place] [address] Referral ID Status Reason Start Date Expiration Date Visits Requ ested Visits Authorized [id number] Closed 05/01/2017 10/28/2017 1 1 ECTIONAL OFFICER Reason for Visit Reason Comments Cataract Encounter Details Date Type Department Care Team Description 05/01/2017 Office Visit Department of Raymundo Muniz Cataract S enile Nuclear Sclerosis Bilateral (Primary Dx); Ophthalmology in [place] So[place] M.D. [place] Degenerative Macula Bilateral; [place], [place] [address] [place] [address] Cataract Senile Nuclear Sclerosis Right; [address] [facility] [place]ARIEL L[place]in Cataract Senile [place] [phone] [phone] Social History Tobacco Use Types Packs/Day Years [...] 5. Patient would prefer his surgery in [place] at the [facility]. 6. We will use Miostat control the postoperative intra-ocular pressure. ECTIONAL OFFICER documented in this encounter Plan of [...]
--- OUTSIDE RECORDS SUMMARY | 2022-03-12 08:33 | XMS_ITS | Encounter Summary ---
:1940 Author Organization [facility] Address [address] [place] [address] Care Team Providers Name Role Phone Unavailable Primary Care Provider Unavailable Encounter Details Date Type Department Care Team Description 11/02/2014 Hospital Encounter HX [facility] Corby Woodward MMarry [address] [place] [address] (Wo rk) Social History Tobacco Use Types [...] Summary-Paper Based CODING DATE: 11/08/2014 FINAL CA [facility] STATUS: * Discharged to Home or [...] MCGUIRE Date Saved: 11/08/2014 09:46 am Source: [employer] Company[employer]ART Document Id: [id number] documented in this encounter Plan of Treatment Not on filedocumented as of this encounter Visit Diagnoses Not on filedocumented in this encounter
--- OUTSIDE RECORDS SUMMARY | 2022-03-12 08:33 | XMS_ITS | Encounter Summary ---
:1940 Author Organization [facility] Address [address] [place] [address] Care Team Providers Name Role Phone Unavailable Primary Care Provider Unavailable Encounter Details Date Type Department Care Team Description 06/23/2006 - Hospital Encounter HX [facility] DERM SURG OP Lorena Fiore M.D. 06/30/2006 [facility] [address] [place] [id number] (Wo rk) Social History Tobacco Use Types Packs/Day Years Used Date Smoking Tobacco: Never Assessed Sex Assigned at Date Recorded Not on file documented as of this encounter Plan of Treatment Not on filedocumented as of this encounter Visit Diagnoses Not on filedocumented in this encounter
--- OUTSIDE RECORDS SUMMARY | 2022-03-12 08:33 | XMS_ITS | Encounter Summary ---
:1940 Author Organization [facility] Address [address] [place] [address] Care Team Providers Name Role Phone Unavailable [...]
--- OUTSIDE RECORDS SUMMARY | 2022-03-12 08:33 | XMS_ITS | Encounter Summary ---
:1940 Author Organization [facility] Address [address] [place] [address] Care Team Providers Name Role Phone Unavailable [...]
--- OUTSIDE RECORDS SUMMARY | 2022-03-12 08:33 | XMS_ITS | Encounter Summary ---
:1940 Author Organization [facility] Address [address] [place] [address] Care Team Providers Name Role Phone Unavailable [...]
--- OUTSIDE RECORDS SUMMARY | 2022-03-12 08:33 | XMS_ITS | Encounter Summary ---
:1940 Author Organization [facility] Address [address] [place] [address] Care Team Providers Name Role Phone Unavailable [...]
--- OUTSIDE RECORDS SUMMARY | 2022-03-12 08:33 | XMS_ITS | Encounter Summary ---
:1940 Author Organization [facility] Address [address] [place] [address] Care Team Providers Name Role Phone Unavailable [...] PM 4 3:43 CDT PM CDT Narrative [facility] - 09/09/2003 3:43 PM CDT ?09/09/2003 General Biopsy ? ([id number]) ? Requested By: ??Giulia Gonzalez ??[id number] ?? Additional Physician: ??Raymundo hermosillo M.D. [id number] ? TISSUE DESCRIPTION: [id number] A1 ?? A. ??Sigmoid/Rectum, Colon biopsy: ??(5 pieces 0.1 - 0.5 cm. in diameter) ?DIAGNOSIS: ?? Colon, sigmoid and rectum, polyps, endo scopic biopsy: ??Fragments of hyperplastic polyps. ? 09/12/03 ??Shelly Mcnamara M.D. [id number] ? Procedure Note 07/26/2017 09/09/2003 General Biopsy ([id number]) Requested By: Marv Pryor M.D. [id number] Additional Physician: Raymundo uriostegui M.D. [id number] TISSUE DESCRIPTION: [id number] A1 A. Sigmoid/Rectum, Colon biopsy: (5 pie rashawn 0.1 - 0.5 cm. in diameter) DIAGNOSIS: Colon, sigmoid and rectum, polyps, endo scopic biopsy: Fragments of hyperplastic polyps. 09/12/03 Shelly Mcnamara M.D. [id number] Historical Provider LAB PATHOLOGY/CYTOLOGY ORDER VALDEZ Performing Organization Address City/State/ZIP Code Phon e Number [facility] - [address] [place], [place] [address] [facility] documented in this encounter Visit Diagnoses Not on filedocumented in this encounter
--- OUTSIDE RECORDS SUMMARY | 2022-03-12 08:33 | XMS_ITS | Encounter Summary ---
:1940 Author Organization [facility] Address [address] [place] [address] Care Team Providers Name Role Phone Unavailable [...]
--- OUTSIDE RECORDS SUMMARY | 2022-03-12 08:33 | XMS_ITS | Encounter Summary ---
:1940 Author Organization [facility] Address [address] [place] [address] Care Team Providers Name Role Phone Unavailable Primary Care Provider Unavailable Encounter Details Date Type Department Care Team Description 01/09/2010 Hospital Encounter [facility] Delbert Almaguer M.D. [address] [place], [place] [phone] (Wo rk) Social History [...] Almaguer M.D. - 01/09/2010 12:00 AM CDT [id number] IMPRESSION / REPORT / PLAN Cerumen impaction [...] [facility] that [facility] so he [facility] that and [...] On 01/15/2010 08:32 AM Source: [facility] MHSDOLBEYNONRADSYS Document Id: [id number] documented in this encounter Nursing Notes Conversion, Historical Provider Ser - 01/11/2010 11:50 AM CDT Pt is scheduled for a colonoscopy on January 31 at 815am at [address] A message was left for the pt to call clinic for information Electronically Signed By:TIEN ELLIS On 01/11/2010 11:51 am Source: [facility] [place] Document Id: [id number] documented in this encounter Miscellaneous Notes Miscellaneous - Tj Almaguer M.D. - 01/09/2010 2:40 PM CDT General Message From: TJ ALMAGUER MD Sent: 01/09/2010 14:40:41 CDT Subject: General Message Please schedule followup colonoscopy, history polyps X 2 in 2003. [place]. Source: [facility] POWERCHART Document Id: [id number] Miscellaneous - Conversion, Historical Provider Ser - 01/09/2010 1:57 PM CDT Adult Rn Gastroenterology Intake/History Adult Rn Gastroenterology Intake/History Entered On: 01/09/2010 14:00 CDT Performed [...] ELLIS - 01/09/2010 13:57 CDT [facility]ergies [facility] Document Id: [id number] CDT!22 documented in this encounter Plan of Treatment Not on filedocumented as of this encounter Visit Diagnoses Not on filedocumented in this encounter
--- OUTSIDE RECORDS SUMMARY | 2022-03-12 08:33 | XMS_ITS | Encounter Summary ---
:1940 Author Organization [facility] Address [address] [place] [address] Care Team Providers Name Role Phone Unavailable Primary Care Provider Unavailable Encounter Details Date Type Department Care Team Description 09/27/2010 Hospital Encounter [facility]X [facility] Alfonso Cervantes P.A.-C. [address] [place] [phone] (Wo rk) Social History Tobacco Use Types [...] Cervantes P.A.-C. - 09/27/2010 12:00 AM CDT [id number] CHIEF COMPLAINT/REASON FOR VISIT Medication refill. HISTORY [...] 70 years old. 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 FAMILY HISTORY His father [...] CERVANTES PA-C On: 10/03/2010 09:03 AM Source: [facility] MHSDOLBEYNONRADSYS Document Id: [id number] documented in this encounter Miscellaneous Notes Miscellaneous - Ana Cervantes P.A.-C. - 09/27/2010 11:28 AM CDT Ambulatory Vitals Height Weight Ambulatory Vitals Height Weight Entered On: 09/27/2010 11:29 CDT Performed On: 09/27/2010 11:28 CDT by ANA CERVANTES PA-C Vitals/Ht/Wt Systolic Blood Pressure: 117mmHg Diastolic Blood Pressure: 72mmHg NIBP Mean: 87mmHg ANA CERVANTES PA-C - 09/27/2010 11:28 CDT Source: [employer] Document Id: [id number] CDT!5 Miscellaneous - Conversion, Historical Provider Ser - 09/27/2010 8:31 AM CDT Adult Blood Bank Custodian Intake/History Adult Blood Bank Custodian Intake/History Entered On: 09/27/2010 8:33 CDT Performed [...] ELLIS; Reviewed Date: 01/09/2010 14:01 CDT [facility] Document Id: [id number] CDT!25 documented in this encounter Plan of Treatment Not on filedocumented as of this encounter Visit Diagnoses Not on filedocumented in this encounter
--- OUTSIDE RECORDS SUMMARY | 2022-03-12 08:33 | XMS_ITS | Encounter Summary ---
:1940 Author Organization [facility] Address [address] [place] [address] Care Team Providers Name Role Phone Unavailable [...] Aydin Pittman - 01/29/2012 3:30 PM CDT [id number] SUBJECTIVE: F body Rt Ear today From hearing aid OBJECTIVE: saame ASSESSMENT 1. Foreign body in ear Plan;removed without Problem, rubber tip Tm ok canal ok [facility] Document Id: [id number] Electronically signed by Conversion, [facility] Staff Educator [id number] at 10/05/2016 4:46 PM CDT documented in this encounter Plan of Treatment Not on filedocumented as of this encounter Visit Diagnoses Not on filedocumented in this encounter
--- OUTSIDE RECORDS SUMMARY | 2022-03-12 08:33 | XMS_ITS | Encounter Summary ---
:1940 Author Organization [facility] Address [address] [place] [address] Care Team Providers Name Role Phone Unavailable [...] 10:46 Resu lts for this VIEWS AM ADJUSTER ARBITRATOR procedure are i n the results section. DX THORACOLUMBAR SPINE Routine 04/11/2008 10:43 R esults for this SCOLIOSIS AP AND AM ADJUSTER ARBITRATOR procedure a re in LATERAL 2 VIEWS the results section. documented in this encounter Results DX Thoracic Spine 2 Views (04/11/2008 10:46 AM ADJUSTER ARBITRATOR) Anatomical Region Laterality Modality Thoracic Spine N/A Radiographic Imaging Specimen (Source) Anatomical Collection Method Collection Time Re ceived Time Location / / Volume Laterality 04/11/2008 10:46 AM ADJUSTER ARBITRATOR Narrative 04/11/2008 10:56 AM ADJUSTER ARBITRATOR 11-Apr-2008 10:46:00 ??Exam: Sp Thor*2vw AP/Lat STDG [...] and Lateral 2 Views (04/11/2008 10:43 AM ADJUSTER ARBITRATOR) Anatomical Region Laterality Modality Thoracic Spine, Lumbar Spine N/A Radiographi c Imaging Specimen (Source) Anatomical Collection Method Collection Time Re ceived Time Location / / Volume Laterality 04/11/2008 10:43 AM ADJUSTER ARBITRATOR Narrative 04/11/2008 10:55 AM ADJUSTER ARBITRATOR 11-Apr-2008 10:43:00 ??Exam: Sp*Scoliosis 2vw AP/Lat Indications: [...]
--- OUTSIDE RECORDS SUMMARY | 2022-03-12 08:33 | XMS_ITS | Encounter Summary ---
:[address] 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 PM CDT Oxygen Saturation - [...] Signature Magnesium, S 2.1 1.7 - 2.3 [facility] MG/DL [facility] Specimen Anatomical Collection Method Collection Time Receive d Time (Source) Location / / Volume Laterality 12/20/2011 4:05 AM 2 4:05 CDT AM CDT Historical Provider LAB BLOOD ADD-ON Performing Organization Address City/[facility]/ZIP Code Phon e Number [facility] LABORATORIES - [address] (ABNORMAL) Phosphorus Inorganic (12/20/2011 4:05 AM CDT) [facility] Method Time Signature Phosphorus 4.6 (H) 2.5 - 4.5 [facility] (Inorganic), S MG/DL [facility] Specimen Anatomical Collection Method Collection Time Receive d Time (Source) Location / / Volume Laterality 12/20/2011 4:05 AM 2 4:05 CDT AM CDT Historical Provider LAB BLOOD ADD-ON Performing Organization Address City/[facility]/ZIP [facility] Phon e Number [facility] LABORATORIES - [address] [place] [address] 05 [facility] CBC with Differential (12/20/2011 4:05 AM CDT) [facility] Method Time Signature Hemoglobin 14.4 13.5 - [facility] 17.5 G/DL [facility] Hematocrit 43.3 38.8 - [facility] 50.0 % [facility] RBC Distrib Width 13.6 11.8 - [facility] 15.6 % LABORATORIES - [facility] Platelet Count 202 150 - 450 [facility] X10(9)/L LABORATORIES - [facility] Lymphocytes 2.33 0.90 - [facility] 2.90 LABORATORIES - X10(9)/L [facility] Monocytes 0.52 0.30 - [facility] 0.90 LABORATORIES - X10(9)/L [facility] Erythrocytes 4.75 4.32 - [facility] 5.72 LABORATORIES - X10(12)/L [facility] MCV 91.2 81.2 - [facility] 95.1 [place] LABORATORIES - [facility] Leukocytes 7.5 3.5 - [facility] 10.5 LABORATORIES - X10(9)/L [facility] Neutrophils 4.40 1.70 - [facility] 7.00 LABORATORIES - X10(9)/L [facility] Eosinophils 0.18 0.05 - [facility] 0.50 LABORATORIES - X10(9)/L [facility] Basophils 0.02 0.00 - [facility] 0.30 LABORATORIES - X10(9)/L [facility] Specimen Anatomical Collection Method Collection Time Receive d Time (Source) Location / / Volume Laterality 12/20/2011 4:05 AM 2 4:05 CDT AM CDT Historical Provider LAB BLOOD ADD-ON Performing Organization Address City/State/[facility] Code Phon e Number [facility] LABORATORIES - [address] [place] [address] [facility] (ABNORMAL) Troponin T (12/20/2011 4:05 AM CDT) Patholo gist Method Time Signature Troponin T, S 0.34 (H) <0.01 [facility] NG/ML LABORATORIES [facility] Specimen Anatomical Collection Method Collection Time Receive d Time (Source) Location / / Volume Laterality 12/20/2011 4:05 AM 2 4:05 CDT AM CDT Historical Provider LAB BLOOD ADD-ON Performing Organization Address City/[facility] Code Phon e Number [facility] LABORATORIES - [address] [place], [place] [address] [facility] Electrolyte (Chem 4) Panel (12/20/2011 4:05 AM CDT) Analysis Performed At Patho logist Time Signature Chloride, S 104 100 - 108 [facility] MMOL/L LABORATORIES - [facility] HX Bicarbonate, 27 22 - 29 [facility] P/S MMOL/L LABORATORIES - [facility] Sodium, S 141 135 - 145 [facility] MMOL/L LABORATORIES - [facility] Potassium, S 4.2 3.6 - 5.2 [facility] MMOL/L LABORATORIES [facility] Creatinine 1.2 0.8 - 1.3 [facility] MG/DL LABORATORIES - [facility] BUN (Blood Urea 16 8 - 24 [facility] Nitrogen), S MG/DL LABORATORIES [facility] Anion Gap 10 7 - 15 [facility] LABORATORIES - [facility] Glucose, S 96 70 - 140 [facility] MG/DL LABORATORIES - [facility] Specimen Anatomical Collection Method Collection Time Receive d Time (Source) Location / / Volume Laterality 12/20/2011 4:05 AM 2 4:05 CDT AM CDT Historical Provider LAB BLOOD ADD-ON Performing Organization Address City/[facility]/ZIP Code Phon e Number [facility] LABORATORIES - [address] [place] [address] 05 [facility] (ABNORMAL) Creatine Kinase (CK) MB Isoenzyme (12/20/2011 4:05 AM CDT) Patholo gist Method Time Signature Creatine 6.9 (H) <6.7 NG/ML [facility] Kinase(CK) MB LABORATORIES - Isoenzyme, S [facility] Specimen Anatomical Collection Method Collection Time Receive d Time (Source) Location / / Volume Laterality 12/20/2011 4:05 AM 2 4:05 CDT AM CDT Historical Provider LAB BLOOD ADD-ON Performing Organization Address City/[facility]/ZIP Code Phon e Number [facility] LABORATORIES - [address] [place] [address] [facility] (ABNORMAL) APTT (Activated Partial Thromboplastin Time) (12/19/2011 3:33 PM CDT) P athologist Signature APTT, P >240 (>) 28 - 38 [facility] SEC LABORATORIES - [facility] Specimen Anatomical Collection Method Collection Time Receive d Time (Source) Location / / Volume Laterality 12/19/2011 3:33 PM 2 3:33 CDT PM CDT Lissa Casey M.D. LAB BLOOD ADD-ON Performing Organization Address City/[facility]/ZIP Code Phon e Number [facility] LABORATORIES - [address] [place], [place] [address] [facility] (ABNORMAL) ACT (Activated Clotting Time), POCT (12/19/2011 2:25 PM CDT) [facility] Method Time Signature Activated 266 (H) 84 - 139 [facility] Clotting Time, SEC LABORATORIES - POCT [facility] Specimen Anatomical Collection Method Collection Time Receive d Time (Source) Location / / Volume Laterality 12/19/2011 2:25 PM 2 2:25 CDT PM CDT Historical Provider LAB POCT ORDERABLES - DEVICE Performing Organization Address City/[facility]/ZIP Code Phon e Number [facility] LABORATORIES - [address] [place] [address] [facility] (ABNORMAL) ACT (Activated Clotting Time), POCT (12/19/2011 1:54 PM CDT) [facility] Method Time Signature Activated 227 (H) 84 - 139 [facility] Clotting Time, SEC LABORATORIES - POCT [facility] Specimen Anatomical Collection Method Collection Time Receive d Time (Source) Location / / Volume Laterality 12/19/2011 1:54 PM 2 1:54 CDT PM CDT Historical Provider LAB POCT ORDERABLES - DEVICE Performing Organization Address City/[facility]/ZIP Code Phon e Number [facility] LABORATORIES - [address] [place] [address] 05 [facility] ACT (Activated Clotting Time), POCT (12/19/2011 1:42 PM CDT) P athologist Signature Activated 138 84 - 139 [facility] Clotting Time, SEC LABORATORIES - POCT [facility] Specimen Anatomical Collection Method Collection Time Receive d Time (Source) Location / / Volume Laterality 12/19/2011 1:42 PM 2 1:42 CDT PM CDT Historical Provider LAB POCT ORDERABLES - DEVICE Performing Organization Address City/[facility]/ZIP Code Phon e Number [facility] LABORATORIES - [address] [place] [address] [facility] Cardiac Catheterization (12/19/2011 1:11 PM CDT) Anatomical [...] P 93 (H) 28 - 38 [facility] Specimen Anatomical Collection Method Collection Time Receive d Time (Source) Location / / Volume Laterality 12/19/2011 8:20 AM 2 8:20 CDT AM CDT Historical Provider LAB BLOOD ADD-ON Performing Organization Address City/[facility]/ZIP Code Phon e Number [facility] LABORATORIES - [address] [place] [address] [facility] (ABNORMAL) APTT (Activated Partial Thromboplastin Time) (12/19/2011 1:05 AM CDT) P athologist Signature APTT, P 50 (H) 28 - 38 [facility] Specimen Anatomical Collection Method Collection Time Receive d Time (Source) Location / / Volume Laterality 12/19/2011 1:05 AM 2 1:05 CDT AM CDT Tahmina Dong M.D. LAB BLOOD ADD-ON Performing Organization Address City/[facility] Code Phon e Number [facility] LABORATORIES - [address] [place] [address] [facility] CBC with Differential (12/19/2011 1:05 AM CDT) [facility] Method Time Signature Hemoglobin 14.0 13.5 - [facility] 17.5 G/DL [facility] Hematocrit 40.5 38.8 - [facility] 50.0 % [facility] RBC Distrib Width 13.2 11.8 - [facility] 15.6 % [facility] Platelet Count 204 150 - 450 [facility] X10(9)/L [facility] Leukocytes 8.5 3.5 - [facility] 10.5 LABORATORIES - X10(9)/L [facility] Neutrophils 6.11 1.70 - [facility] 7.00 LABORATORIES - X10(9)/L [facility] Lymphocytes 1.84 0.90 - [facility] 2.90 LABORATORIES - X10(9)/L [facility] Monocytes 0.45 0.30 - [facility] 0.90 LABORATORIES - X10(9)/L [facility] Eosinophils 0.09 0.05 - [facility] 0.50 LABORATORIES - X10(9)/L [facility] Basophils 0.01 0.00 - [facility] 0.30 LABORATORIES - X10(9)/L [facility] Erythrocytes 4.43 4.32 - [facility] 5.72 LABORATORIES - X10(12)/L [facility] MCV 91.4 81.2 - [facility] 95.1 [place] LABORATORIES - [facility] Specimen Anatomical Collection Method Collection Time Receive d Time (Source) Location / / Volume Laterality 12/19/2011 1:05 AM 2 1:05 CDT AM CDT Tahmina Dong M.D. LAB BLOOD ADD-ON Performing Organization Address City/State/[facility] Code Phon e Number [facility] LABORATORIES - [address] [place], [place] [address] [facility] Electrolyte (Chem 4) Panel (12/19/2011 1:04 AM CDT) Analysis Performed At Patho logist Time Signature Sodium, S 143 135 - 145 [facility] MMOL/L [facility] Potassium, S 4.1 3.6 - 5.2 [facility] MMOL/L [facility] Creatinine 0.9 0.8 - 1.3 [facility] MG/DL [facility] BUN (Blood Urea 16 8 - 24 [facility] Nitrogen), S MG/DL [facility] Chloride, S 108 100 - 108 [facility] MMOL/L [facility] - [facility] HX Bicarbonate, 24 22 - 29 [facility] P/S MMOL/L LABORATORIES [facility] Anion Gap 11 7 - 15 [facility] - [facility] Glucose, S 95 70 - 140 [facility] MG/DL LABORATORIES - [facility] Specimen Anatomical Collection Method Collection Time Receive d Time (Source) Location / / Volume Laterality 12/19/2011 1:04 AM 2 1:04 CDT AM CDT Tahmina Dong M.D. LAB BLOOD ADD-ON Performing Organization Address City/State/ZIP Code Phon e Number [facility] LABORATORIES - [address] [place] [address] [facility] (ABNORMAL) Magnesium (12/19/2011 1:04 AM CDT) Analysis Performed At Patho logist Time Signature Magnesium, S 2.4 (H) 1.7 - 2.3 [facility] MG/DL LABORATORIES [facility] Specimen Anatomical Collection Method Collection Time Receive d Time (Source) Location / / Volume Laterality 12/19/2011 1:04 AM 2 1:04 CDT AM CDT Tahmina Dong M.D. LAB BLOOD ADD-ON Performing Organization Address City/[facility]/ZIP Code Phon e Number [facility] LABORATORIES - [address] [place] [address] [facility] Phosphorus Inorganic (12/19/2011 1:04 AM CDT) Analysis Performed At Patho logis Time Signature Phosphorus 4.2 2.5 - 4.5 [facility] (Inorganic), S MG/DL [facility] Specimen Anatomical Collection Method Collection Time Receive d Time (Source) Location / / Volume Laterality 12/19/2011 1:04 AM 2 1:04 CDT AM CDT Tahmina Dong M.D. LAB BLOOD ADD-ON Performing Organization Address City/State/ZIP Code Phon e Number [facility] LABORATORIES - [address] DX Chest Portable 1 View (12/18/2011 [...] Electronically signed by: ?? Willie Laird MD [phone] 18-Dec-2011 20: 27 I have reviewed the films/images and agr ee with the above interpretation. Electronically signed by: ?? Maged Amato MD [phone] 18-Dec-2011 20:4 2 Procedure Note Maged Amato M.D. - 08/02/2017Forma tting of this note might be different from the original. 18-Dec-2011 19:31:00 Exam: Portable-Ches t Indications: STEMI ORIGINAL REPORT - 18-Dec-2011 20:27:00 Chest; 1 view: No pulmonary infiltrates or pleural effu sions. Normal cardiac size. Calcified tortuous aorta. Electronically signed by: Willie Laird MD [phone] 18-Dec-2011 20: 27 I have reviewed the films/images and agr ee with the above interpretation. Electronically signed by: Maged Amato MD [phone] 18-Dec-2011 20:4 2 Lissa Casey M.D. IMG DIAGNOSTIC IMAGING PROCE DURES (ABNORMAL) Cardiac Biomarker Panel (12/18/2011 7:25 PM CDT) [facility] Method Time Signature Delta Interp Sig Delta [facility] Comment: Significant delta observed. Troponin Delta 0.38 NG/ML [facility] Troponin T 6H, S 0.52 (H) <0.01 NG/ML [facility] Delta Interp Sig Delta [facility] Comment: Significant delta observed. Troponin T, S 0.09 (H) <0.01 NG/ML [facility] Troponin T 3H, S 0.47 (H) <0.01 NG/ML [facility] Troponin Delta 0.43 NG/ML [facility] Specimen Anatomical Collection Method Collection Time Receive d Time (Source) Location / / Volume Laterality 12/18/2011 7:25 PM 2 7:25 CDT PM CDT Tahmina Dong M.D. LAB BLOOD ADD-ON Performing Organization Address City/State/ZIP Code Phon e Number [facility] - [address] [place], [place] [address] [facility] PT (Prothrombin Time) with INR (12/18/2011 7:25 PM CDT) [facility] Method Time Signature Prothrombin 11.0 9.5 - 13.8 [facility] Time, P SEC [facility] - [facility] INR 1.0 0.8 - 1.2 [facility] Specimen Anatomical Collection Method Collection Time Receive d Time (Source) Location / / Volume Laterality 12/18/2011 7:25 PM 2 7:25 CDT PM CDT Tahmina Dong M.D. LAB BLOOD ADD-ON Performing Organization Address City/[facility]/ZIP Code Phon e Number [facility] LABORATORIES - [address] [place] [address] [facility] (ABNORMAL) APTT (Activated Partial Thromboplastin Time) (12/18/2011 7:25 PM CDT) P athologist Signature APTT, P 78 (H) 28 - 38 [facility] Specimen Anatomical Collection Method Collection Time Receive d Time (Source) Location / / Volume Laterality 12/18/2011 7:25 PM 2 7:25 CDT PM CDT Tahmina Dong M.D. LAB BLOOD ADD-ON Performing Organization Address City/State/ZIP Code Phon e Number [facility] LABORATORIES - [address] [place] [phone] [facility] Electrolyte (Chem 4) Panel (12/18/2011 7:25 PM CDT) Analysis Performed At Patho logist Time Signature Chloride, S 106 100 - 108 [facility] MMOL/L [facility] - [facility] BUN (Blood Urea 16 8 - 24 [facility] Nitrogen), S MG/DL [facility] Glucose, S 93 70 - 140 [facility] MG/DL LABORATORIES [facility] Sodium, P 142 135 - 145 [facility] MMOL/L LABORATORIES - [facility] Potassium, P 4.1 3.6 - 5.2 [facility] MMOL/L LABORATORIES [facility] HX Bicarbonate, 29 22 - 29 [facility] P/S MMOL/L [facility] - [facility] Creatinine 1.0 0.8 - 1.3 [facility] MG/DL [facility] - [facility] Specimen Anatomical Collection Method Collection Time Receive d Time (Source) Location / / Volume Laterality 12/18/2011 7:25 PM 2 7:25 CDT PM CDT Tahmina Dong M.D. LAB BLOOD ADD-ON Performing Organization Address City/State/ZIP Code Phon e Number [facility] LABORATORIES - [address] [place], [place] [address] [facility] Magnesium (12/18/2011 7:25 PM CDT) P athologist Signature Magnesium, S 2.3 1.7 - 2.3 [facility] MG/DL [facility] Specimen Anatomical Collection Method Collection Time Receive d Time (Source) Location / / Volume Laterality 12/18/2011 7:25 PM 2 7:25 CDT PM CDT Tahmina Dong M.D. LAB BLOOD ADD-ON Performing Organization Address City/State/ZIP Code Phon e Number [facility] LABORATORIES - [address] [place], [place] [address] [facility] Phosphorus Inorganic (12/18/2011 7:25 PM CDT) Analysis Performed At Patho logist Time Signature Phosphorus 2.6 2.5 - 4.5 [facility] (Inorganic), S MG/DL [facility] Specimen Anatomical Collection Method Collection Time Receive d Time (Source) Location / / Volume Laterality 12/18/2011 7:25 PM 2 7:25 CDT PM CDT Tahmina Dong M.D. LAB BLOOD ADD-ON Performing Organization Address City/[facility]/ZIP Code Phon e Number [facility] LABORATORIES - [address] [place] [address] [facility] Lipid Panel (12/18/2011 7:25 PM CDT) Patholo gist Method Time Signature Cholesterol, 209 SeeComment [facility] Total MG/DL [facility] Comment: Reference [...] ? Cholesterol, Non-HDL, 158 SeeComment MG/DL [facility] LABORATORIES - Calculated [facility] [...] =60 ? Calculated LDL 148 SeeComment MG/DL [facility] LABORATORIES - [facility] [...] Organization Address City/State/ZIP Code Phon e Number [facility] LABORATORIES - [address] [place], [place] [address] [facility] (ABNORMAL) CBC with Differential (12/18/2011 7:25 PM CDT) [facility] gist Method Time Signature Hemoglobin 14.6 13.5 - [facility] 17.5 G/DL LABORATORIES - [facility] Hematocrit 43.7 38.8 - [facility] 50.0 % LABORATORIES - [facility] RBC Distrib 13.3 11.8 - [facility] Width 15.6 % LABORATORIES - [facility] Platelet Count 205 150 - 450 [facility] X10(9)/L LABORATORIES - [facility] Leukocytes 13.7 (H) 3.5 - [facility] 10.5 LABORATORIES - X10(9)/L [facility] Neutrophils 12.10 (H) 1.70 - [facility] 7.00 LABORATORIES - X10(9)/L [facility] Lymphocytes 0.91 0.90 - [facility] 2.90 LABORATORIES - X10(9)/L [facility] Monocytes 0.59 0.30 - [facility] 0.90 LABORATORIES - X10(9)/L [facility] Eosinophils 0.08 0.05 - [facility] 0.50 LABORATORIES - X10(9)/L [facility] Basophils 0.02 0.00 - [facility] 0.30 LABORATORIES - X10(9)/L [facility] Erythrocytes 4.79 4.32 - [facility] 5.72 LABORATORIES - X10(12)/L [facility] MCV 91.2 81.2 - [facility] 95.1 [place] LABORATORIES - [facility] Specimen Anatomical Collection Method Collection Time Receive d Time (Source) Location / / Volume Laterality 12/18/2011 7:25 PM 2 7:25 CDT PM CDT Tahmina Dong M.D. LAB BLOOD ADD-ON Performing Organization Address City/State/ZIP Code Phon e Number [facility] LABORATORIES - [address] [place], [place] [address] [facility] documented in this encounter Visit Diagnoses Not on filedocumented in this encounter
--- OUTSIDE RECORDS SUMMARY | 2022-03-12 08:33 | XMS_ITS | Encounter Summary ---
:1940 Author Organization [facility] Address [address] [place] [address] Care Team Providers Name Role Phone Unavailable [...] PM 0 1:00 CDT PM CDT Narrative [facility] - 08/21/1999 1:00 PM CDT [id number] Surgical Pathology Requested By: ? Klaus Gonzalez M.D. ? ([id number]) ?? TISSUE DESCRIPTION: ?? Tissue from the left carotid artery (2.5 x 0.9 x 0.7 cm) ?? DIAGNOSIS: ?? Plaque, left carotid artery, excisio n: ??Segment of atheromatous plaque identified. ?? [id number] ?Tonya Lee M.D.:mgs Procedure Note 07/26/2017 [id number] Surgical Pathology Requested By: Klaus Gonzalez M.D. ( [id number]) TISSUE DESCRIPTION: Tissue from the left carotid artery (2. 5 x 0.9 x 0.7 cm) DIAGNOSIS: Plaque, left carotid artery, excision: Segment of atheromatous plaque identified. [id number] Tonya Lee M.D.:s Klaus Gonzalez M.D. LAB PATHOLOGY/CYTOLOGY ORDER VALDEZ Performing Organization Address City/State/ZIP Code Phon e Number [facility] - [address] [place], [place] [address] [facility] EEG routine - awake and sleep (08/21/1999 12:36 PM CDT) Specimen (Source) Anatomical Collection Method Collection Time Re ceived Time Location / / Volume Laterality 08/21/1999 12:36 PM CDT Narrative [facility] - 08/21/1999 12:36 PM CDT ?? Final Report ? El ectroencephalography ?? Referring Physician: ??Carlos ??[id number] ? Date: ??21 Aug 1999 ?? EEG Rod Machine Operator: ? Rolf Giordano on 41 ?? Clinical Problem: ? Left carotid endarterectomy [...] no change with occlusion o r following catholic of flow. Rolf Ott ?melchor (Signature date Aug 1999 13:58) Procedure Note Provider, Historical - 08/18/2017Formatt ing of this note might be different from the original. Final Report Electroencephalography Referring Physician: Carlos [id number] Date : 21 Aug 1999 EEG Rod Machine Operator: Rolf Ott [id number] Clinical Problem: Left carotid endarter ectomy CLINICAL [...] no change with occlusion or f ollowing catholic of flow. Rolf roche (Signature date Aug 1999 13:58) Historical Provider NEUROLOGY ORDERABLES Performing Organization Address City/State/ZIP Code Phon e Number HX [facility] [address] [place] [address], U SA US Carotid (08/20/1999 9:19 AM CDT) Anatomical Region Laterality Modality Ultrasound Specimen (Source) Anatomical Collection Method Collection Time Re ceived Time Location / / Volume Laterality 08/20/1999 9:19 AM CDT Narrative 08/20/1999 11:27 AM CDT 20-Aug-1999 09:19:00 ??Exam: US Carotid Arteries Complete Indications: tia ? [id number] ??cart ORIGINAL REPORT - 20-Aug-1999 11:27:00 VELOCITIES [...] US Carotid Ar teries Complete Indications: tia [id number] cart ORIGINAL REPORT - 20-Aug-1999 11:27:00 VELOCITIES [...] negative. Electronically signed by: Elisha Covarrubias MD. [id number] 18-Aug-1999 14:1 3 Severiano Mayfield M.D. IMG DIAGNOSTIC IMAGING PROCE DURES ECG 12 Lead (08/18/1999 12:55 PM CDT) Specimen (Source) Anatomical Collection Method Collection Time Re ceived Time Location / / Volume Laterality 08/18/1999 12:55 PM CDT [facility] - 08/19/1999 6:48 AM CDT [...] Address City/State/ZIP Code Phon e Number HX [facility] [address] [place] [address], [address] Head without IV Contrast (08/18/1999 12:22 PM CDT) Anatomical Region Laterality Modality Head N/A Computed Tomography Specimen (Source) Anatomical Collection Method Collection Time Re ceived Time Location / / Volume Laterality 08/18/1999 12:22 PM CDT Narrative 08/19/1999 9:01 AM CDT 18-Aug-1999 12:22:00 ??Exam: CT Head wo Indications: TIA REVISED REPORT - 19-Aug-1999 09:01:00 Revised 08/19/1999 09:00:15 ([id number]) ??CT scan of the head without contrast is negative. No hemorrhage or mass effect. IND [id number] ??DX ??180.120 Electronically signed by: ?? Reno Bran MD. ??[id number] 19-Aug-1999 0 9:01 Procedure Note Akilah Bran M.D. - 08/11/2017F ormatting of this note might be different from the original. 18-Aug-1999 12:22:00 Exam: CT Head wo Indications: TIA REVISED REPORT - 19-Aug-1999 09:01:00 Revised 08/19/1999 09:00:15 ([id number]) CT scan of the head without c ontrast is negative. No hemorrhage or mass effect. IND [id number] DX 180.120 Electronically signed by: Reno Bran MD. [id number] 19-Aug-1999 09: 01 Severiano Mayfield M.D. IMJulienne CT PROCEDURES documented in this encounter Visit Diagnoses Not on filedocumented in this encounter
--- OUTSIDE RECORDS SUMMARY | 2022-03-12 08:33 | XMS_ITS | Encounter Summary ---
:[address] [facility] Address [address] [place] [address] Care Team Providers Name Role Phone Unavailable Primary Care Provider Unavailable Encounter Details Date Type Department Care Team Description 01/10/2015 Hospital Encounter [facility]X [facility] Kobe Waller, P.A.-C. Social History [...] Kobe Conrad - 01/10/2015 7:41 AM CDT [id number] Mr. Vines is a very pleasant, 74-year-old [...] and it would be done over in [place]. He will let us know if he [...] bring up the possibility of going to [place]. I told him he is more than [...] which 17 minutes was spent in direct [id number] counseling and educating the patient about his condition, as well as treatment options available to him. Kobe Conrad P.A.-C./dirk Electronically Signed By: KOBE CONRAD PA-C On: 01/16/2015 11:57 AM Source: [facility] MHSDOLBEYNONRADSYS Document Id: [id number] documented in this encounter Miscellaneous Notes Miscellaneous - Kobe Conrad - 01/10/2015 3:46 PM CDT Ambulatory Patient Summary [address] [id number] Visit Information Name: LUIS ARMANDO RYLEY RASHAWNANA [facility] Number: [id number] Current Date: 01/10/2015 15:46:00 Physicians [...] if you dont have one. Go to [email or web address] and click on Create Your Account. Then, follow the directions to complete the online form. Youll be asked for your [facility] number which you can find at the top of this document. Your Goals/Additional instructions: Source: [facility] POWERCHART Document Id: [id number] Miscellaneous - Kobe Conrad - 01/10/2015 3:45 PM CDT Ambulatory Discharge Medication List [address] [id number] Visit Information Name: RYLEY VINES [facility] Number: [id number] Visit Date: 01/10/2015 15:45:59 Attending [...] PA-C Signed On:10-JAN-2015 15:45:53 Additional Information: Source: [facility] POWERCHART Document Id: [id number] Miscellaneous - Trini Dodson R.N. - 01/10/2015 7:59 AM CDT Adult Oven Drier Tender Intake/History Adult Oven Drier Tender Intake/History Entered On: 01/10/2015 8:03 CDT Performed On: 01/10/2015 7:59 CDT by TRINI DODSON pcas Chief Complaint : right shoulder pain for [...] Preferred Communication Mode : Verbal Languages : Syriac Is Patient Female and 13-50 no hysterectomy [...] DODSON RN - 01/10/2015 7:59 CDT Source: [facility] Document Id: [id number] CDT!38 documented in this encounter Plan of Treatment Not on filedocumented as of this encounter Visit Diagnoses Not on filedocumented in this encounter
--- OUTSIDE RECORDS SUMMARY | 2022-03-12 08:33 | XMS_ITS | Encounter Summary ---
:1940 Author Organization [facility] Address [address] [place] [address] Care Team Providers Name Role Phone Unavailable Primary Care Provider Unavailable Encounter Details Date Type Department Care Team Description 02/08/2015 Hospital Encounter HX [facility] Rodger Miranda M.D. [address] [place], [place] [phone] (Wo rk) Social History [...] Dodson M.D. - 02/08/2015 10:53 AM CDT [id number] CHIEF COMPLAINT/REASON FOR VISIT Right shoulder pain [...] DODSON MD On: 02/08/2015 09:02 PM Source: [facility] MHSDOLBEYNONRADSYS Document Id: [id number] documented in this encounter Miscellaneous Notes Miscellaneous - Yovana Shelton, L.P.N. - 02/08/2015 12:40 PM CDT Ortho surgery letter From: YOVANA SHELTON LPN ( Orthopedic Nurse) To: [facility]; [facility] Surgery Nurse Billing Administrator; Surgery Admissions Specialist; Sent: 02/08/2015 12:40:03 CDT Subject: Ortho surgery letter [facility] Surgery Clinic Checklist Patient Contact Number: [phone] Surgeon: Geremias Surgical Service: (x) Orthopedics (_) [...] Other Pre-op MD: pt will schedule in [place] Post-Op Appt:(time frame when to return) 10-14 [...] Yes X-Ray Location (if not done in [facility]): 02/08/15 CPM Post-op: (_) No (_) Yes- please make sure MD places order If Total Joint Case: Type of Prosthesis: Lisa reverse components Additional equipment: _ Has other side been done: (x) No (_) Yes Source: [facility] POWERCHART Document Id: [id number] Miscellaneous - Ana Rosa Dodson M.D. - 02/08/2015 11:53 AM CDT Ambulatory Patient Summary [facility] [address], [address] [place], [place] [phone] Visit Information Name: SACHINRYLEY Soares [facility] Number: [id number] Current Date: 02/08/2015 11:53:30 Physicians [...] if you dont have one. Go to [email or web address] and click on Create Your Account. Then, follow the directions to complete the online form. Youll be asked for your [facility] number which you can find at the top of this document. Your Goals/Additional instructions: Source: [facility] POWERCHART Document Id: [id number] Miscellaneous - Ana Rosa Dodson M.D. - 02/08/2015 11:53 AM CDT Ambulatory Discharge Medication List [address] [place], [place] [phone] Visit Information Name: RYLEY IVNES [facility] Number: [id number] Visit Date: 02/08/2015 11:53:30 Attending [...] MD Signed On:08-FEB-2015 11:53:26 Additional Information: Source: [facility] Document Id: [id number] Miscellaneous - Bashir Hutton, C.M.ALara - 02/08/2015 11:03 AM CDT Adult Copyman Intake/History Adult Copyman Intake/History Entered On: 02/08/2015 11:03 CDT Performed On: 02/08/2015 11:03 CDT by BASHIR HUTTON Intake Chief Complaint : Consult right shoulder. BASHIR HUTTON - 02/08/2015 11:03 CDT General Info Information Given By : Patient Preferred Communication Mode : Verbal Languages : Vietnamese Is Patient Female and 13-50 no hysterectomy [...] BASHIR HUTTON - 02/08/2015 11:03 CDT Source: [facility] Document Id: [id number] CDT!22 documented in this encounter Plan of Treatment Not on filedocumented as of this encounter Visit Diagnoses Not on filedocumented in this encounter
--- OUTSIDE RECORDS SUMMARY | 2022-03-12 08:33 | XMS_ITS | Encounter Summary ---
:1940 Author Organization [facility] Address [address] [place] [address] Care Team Providers Name Role Phone Unavailable [...]
--- NOTE | 2022-03-12 08:45 | CRLHL7_ITS ---
For Patients: As a result of the Century Cures Act, medical imaging exams and procedure reports are released immediately into your electronic medical record. You may view this report before your referring provider. If you have questions, please contact your health care provider. INDICATION: Elevated liver enzymes. TECHNIQUE: Right upper quadrant ultrasound. FINDINGS: The liver is mildly heterogeneous in echotexture. This could reflect fatty infiltration or other intrinsic hepatic parenchymal process. Please correlate with any pertinent clinical or laboratory values. No hepatic mass. No biliary ductal dilatation. Questionable sludge or tiny sand like stones in the gallbladder. No gallbladder wall thickening. No pericholecystic fluid. No sonographic Gallegos`s sign. The gallbladder wall measures 3 mm. The common bile duct measures 4 mm. Normal-appearing pancreas. The right kidney measures 9.3 x 4.4 x 5.1 cm. No right-sided hydronephrosis. The visualized inferior vena cava is unremarkable. The proximal and mid abdominal aorta are of normal caliber measuring 2.1 cm in AP dimension proximally and 1.6 cm along its mid course. There is likely a distal abdominal aortic aneurysm measuring 2.9 x [address] for confirmation. IMPRESSION: 1. Minimal sludge in the gallbladder. 2. Echogenic coarsened hepatic echotexture. 3. Distal abdominal aortic aneurysm. Dictated by Yosi Jade MD @ 03/12/2022 10:04:06 AM (Electronically Signed)
== END 2022-03-12 08:22 | disposition home or self-care (01) ==
PROVIDERS: PCP Nurse Practitioner Family; Visit Provider Nurse Practitioner Family
DX: R74.8 Abnormal levels of other serum enzymes (principal); I71.40 Abdominal aortic aneurysm, without rupture, unspecified; K82.9 Disease of gallbladder, unspecified
CPT/HCPCS: 76705

== ENCOUNTER 2022-04-11 07:51 | Outpatient (CLI) | payer MEDICARE, BC, SELFPAY ==
--- OUTSIDE RECORDS SUMMARY | 2022-04-11 08:03 | XMS_ITS | Encounter Summary ---
:1940 Author Organization [facility] Address [address] [place] [address] Care Team Providers Name Role Phone Elisha Woodward MD Primary Care Provider Reason for Visit Reason Onset Date Comments medication question 01/15/2021 Encounter Details Date Type Department Care Team Description 01/15/2021 Telephone [place], medication question [address] [place], [place] [address] [phone] [place] [address] (Wo rk) Social History Tobacco Use Types Packs/Day Years Used Date Smoking Tobacco: Never Smokeless Tobacco: Never Alcohol Use Standard Drinks/Week [...] drinks on one occasion? No t asked Financial Resource Strain Answer Date Recorded [...] a medication question. Please call Pt at [phone] [facility] documented in this encounter Plan of Treatment Not on filedocumented as of this encounter Visit Diagnoses Not on filedocumented in this encounter Care Teams Lab Instructor Relationship Specialty Start Date End Date Elisha Woodward MD PCP - General 01/01/[address] [place] [address] documented as of this encounter
--- OUTSIDE RECORDS SUMMARY | 2022-04-11 08:03 | XMS_ITS | Encounter Summary ---
:[address] [facility] Address [address] [place] [address] Care Team Providers Name Role Phone Elisha Woodward MD Primary Care Provider Reason for Visit Reason Comments Med Refill Encounter Details Date Type Department Care Team Description 12/13/2021 Refill [place] Elisha Woodward Hyperlipidemia, unspecified [address] [facility] [place] [place] hyperlipidemia type [place], [place] [address] [phone] [place] [address] Social History Tobacco Use Types Packs/Day Years [...] type documented in this encounter Care Teams Banking Services Advisor Relationship Specialty Start Date End Date Elisha Woodward MD PCP - General 01/01/[address] [place] [address] documented as of this encounter
--- OUTSIDE RECORDS SUMMARY | 2022-04-11 08:03 | XMS_ITS | Encounter Summary ---
:1940 Author Organization [facility] Address [address] [place] [address] Care Team Providers Name Role Phone Elisha Woodward MD Primary Care Provider Reason for Visit Reason Comments Med Refill Encounter Details Date Type Department Care Team Description 11/17/2021 Refill [place] Elisha Woodward Hyperlipidemia, unspecified hyperlipidemia type; [address] [place] Gastroesophageal reflux disease without esophagitis [place], [place] [address] [place] [address] Social History Tobacco Use Types Packs/Day Years [...] reflux documented in this encounter Care Teams Intermediate Card Tender Relationship Specialty Start Date End Date Elisha Woodward MD PCP - General 01/01/[address] [place] [address] documented as of this encounter
--- OUTSIDE RECORDS SUMMARY | 2022-04-11 08:03 | XMS_ITS | Clinical Summary ---
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 Added automatically from request for mayte hardy [id number] Occult blood in stools 09/11/2020 Overview: Formatting of this note might be differe nt from the original. Added automatically from request for mayte hardy [id number] Primary osteoarthritis, left shoulder 12/20/2019 Overview: Formatting of this note might be differe nt from the original. Added automatically from request for mayte hardy [id number] Bilateral hearing loss 12/14/2019 Gastroesophageal reflux disease [...] irrigation completed by nursing staff. Follow-up with envelope machine adjuster on a regular basis. 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 Cervicalgia 10/28/2014 Hyperlipoproteinemia 09/02/2014 Disturbance of skin sensation 12/07/2013 Vitamin D deficiency 03/10/2009 Polymyalgia rheumatica 03/25/2007 History of cerebrovascular accident 06/10/2006 Encounters Date Type Specialty Care Team Description 01/25/2022 Refill Family Medicine Elisha Woodward, Screen ing for deficiency anemia (Primary Dx); Atherosclerosis of [place] coronary artery without angina pectoris, unspecified whether [place] or transplanted heart; Primary hyperte nsion; Diabetes mellit us screening; Screening cady sterol level; Thyroid disorde r screen from Last 3 Months Immunizations Name Administration [...] 2) 1991 COVID-19 Vaccine (4 - Booster 04/13/2021 02/16/2021, for Pfizer series) 07/21/2020, 06/30/2020 Fall Risk Performed 10/25/2021 10/25/2020 [facility] Annual Wellness 10/25/2021 10/25/2020, 01/09/2018 DTaP,Tdap,and Td Vaccines (2 01/07/2022 01/08/2012, - Td or Tdap) 08/29/2003 Pneumococcal Vaccine: 65+ Completed 01/09/2018, Years 06/10/2006 HPV Vaccines Aged Out No longer eligib le based on patient's age to complete [facility] to [facility] Insurance Payer Benefit Plan / Subscriber ID Effective Dates Phone Addre ss Type Group MEDICARE MEDICARE [id number] 2006-Presen [address] [place] [address] BC[employer] [place] [id number] 2016-Presen [address] [address] [place], [place] MEDICARE NON [id number] (Home) YARIEL GARCIA [id number] Care Teams Director Of Operations Home Health Relationship Specialty Start Date End Date Elisha Woodward MD PCP - General 01/01/[address] [place] [address]
--- OUTSIDE RECORDS SUMMARY | 2022-04-11 08:03 | XMS_ITS | Encounter Summary ---
:1940 Author Organization [facility] Address [address] [place] [address] Care Team Providers Name Role Phone Elisha Woodward MD Primary Care Provider Encounter Details Date Type Department Care Team Description 02/16/2021 Immunization Family Medicine [address] [place] [address] Social History Tobacco Use Types Packs/Day Years [...] filedocumented in this encounter Care Teams Supervisor Sewing Room Relationship Specialty Start Date End Date Elisha Woodward MD PCP - General 01/01/[address] [place] [address] documented as of this encounter
--- OUTSIDE RECORDS SUMMARY | 2022-04-11 08:03 | XMS_ITS | Encounter Summary ---
:1940 Author Organization [facility] Address [address] [place] [address] Care Team Providers Name Role Phone Elisha Woodward MD Primary Care Provider Reason for Visit Reason Onset Date Comments med list 03/26/2021 Encounter Details Date Type Department Care Team Description 03/26/2021 Telephone [place] Elisha Woodward MD [facility] [address] [facility] [address] [facility] [place], [place] [address] [place], [place] [phone] (Wo rk) Social History Tobacco Use Types [...] - 03/27/2021 11:42 AM CST Picked up. [employer]ETTI PRESS HELPER Telephone Encounter - Guillermina Bradford LPN - 03/26/2021 12:45 PM CST At front office clerk [employer]ET[employer] PRESS HELPER Telephone Encounter - Arti Amaya - 03/26/2021 12:37 PM CST Pt called asking for a copy of his med list. Pt will pick it up in clinic tomorrow, Friday03/27/21. HETTI PRESS HELPER documented in this encounter Plan of Treatment Not on filedocumented as of this encounter Visit Diagnoses Not on filedocumented in this encounter Care Teams Lamination Operator Relationship Specialty Start Date End Date Elisha Woodward MD PCP - General 01/01/[address] [place] [address] documented as of this encounter
--- OUTSIDE RECORDS SUMMARY | 2022-04-11 08:03 | XMS_ITS | Encounter Summary ---
:1940 Author Organization [facility] Address [address] [place] [address] Care Team Providers Name Role Phone Elisha Woodward MD Primary Care Provider Reason for Visit Reason Comments Med Refill Encounter Details Date Type Department Care Team Description 11/01/2021 Refill [place] Elisha Woodward Gastroesophageal reflux [address] [place] disease without esophagitis [place], [place] [address] [facility] [address] [place] [address] Social History Tobacco Use Types Packs/Day Years [...] reflux documented in this encounter Care Teams Systems Applications Programming Lead Relationship Specialty Start Date End Date Elisha Woodward MD PCP - General 01/01/[address] [place] [address] documented as of this encounter
--- OUTSIDE RECORDS SUMMARY | 2022-04-11 08:03 | XMS_ITS | Encounter Summary ---
:1940 Author Organization [facility] Address [address] [place] [address] Care Team Providers Name Role Phone Elisha Woodward MD Primary Care Provider Reason for Visit Reason Comments Med Refill Encounter Details Date Type Department Care Team Description 01/25/2022 Refill Elisha Young Screening for deficiency ane elif (Primary Dx); [address] [place] Atherosclerosis of [place] coronary arter y without angina pectoris, unspecified whether [place] or transplanted heart; [place], [place] [address] [address] [place] Primary hypertension; [phone] [place], [place] Diabetes me llitus screening; [address] Screening cholesterol level; [phone] Thyroid disorde r screen (Work) Social History [...] and unspecified defi ciency anemia Atherosclerosis of [place] coronary arter y without angina pectoris, unspecified whether [place] or transplanted heart Primary hypertension Unspecified essential hypertension Diabetes mellitus screening Screening for diabetes mellitus Screening cholesterol level Screening for lipoid disorders Thyroid disorder screen Screening for thyroid disorder documented in this encounter Care Teams Skilled Labor Relationship Specialty Start Date End Date Elisha Woodward MD PCP - General 01/01/[address] [place] [address] documented as of this encounter
--- OUTSIDE RECORDS SUMMARY | 2022-04-11 08:04 | XMS_ITS | Encounter Summary ---
:1940 Author Organization [facility] Address [address] [place] [address] Care Team Providers Name Role Phone None, Pcp Primary Care Provider Unavailable Encounter Details Date Type Department Care Team Description 08/27/2020 Orders Only [place] Elisha Woodward MD [address] [facility] [address] [place], [place] [address] [place], [place] [phone] [address] (Wo rk) Social History Tobacco Use Types [...] on filedocumented in this encounter Care Teams Event Mgr Relationship Specialty Start Date End Date None, Pcp PCP - General Drill Press Hand 03/29/20 12/31/20 [address] [place] [address] documented as of this encounter
--- OUTSIDE RECORDS SUMMARY | 2022-04-11 08:04 | XMS_ITS | Encounter Summary ---
:1940 Author Organization [facility] Address [address] [place] [address] Care Team Providers Name Role Phone None, Pcp Primary Care Provider Unavailable Encounter Details Date Type Department Care Team Description 06/30/2020 Immunization Family Medicine [address] [place] [address] Social History Tobacco Use Types Packs/Day Years [...] on filedocumented in this encounter Care Teams Screener Operator Relationship Specialty Start Date End Date None, Pcp PCP - General Ton Cylinder Inspector 03/29/20 12/31/20 [address] [place] [address] documented as of this encounter
--- OUTSIDE RECORDS SUMMARY | 2022-04-11 08:04 | XMS_ITS | Encounter Summary ---
:1940 Author Organization [facility] Address [address] [place] [address] Care Team Providers Name Role Phone None, Pcp Primary Care Provider Unavailable Encounter Details Date Type Department Care Team Description 08/29/2020 Lab [place] Colon cancer screening; [address] Anemia, unspecified type [place], [place] [address] Social History Tobacco Use [...] type documented in this encounter Care Teams Boiler Blower Relationship Specialty Start Date End Date None, Pcp PCP - General Candy Feeder 03/29/20 12/31/20 [address] [place] [address] documented as of this encounter
--- OUTSIDE RECORDS SUMMARY | 2022-04-11 08:04 | XMS_ITS | Encounter Summary ---
:1940 Author Organization [facility] Address [address] [place] [address] Care Team Providers Name Role Phone None, Pcp Primary Care Provider Unavailable Reason for Referral Consultation (Routine) - Closed Specialty Diagnoses / Procedures Referred By Contact Refer red To Contact Diagnoses Anemia, unspecified type Guaiac positive stools Elisha Woodward MD [facility] [address] [facility] [address] [address] Referral ID Status Reason Start Date Expiration Date Visits Requ ested Visits Authorized [id number] Closed 09/08/2020 09/08/2021 1 1 Reason for Visit Reason Onset Date Comments Referral 09/08/2020 Encounter Details Date Type Department Care Team Description 09/08/[address] MD Referral [address] [facility] [address] [place], [place] [address] [place], [place] [phone] (Wo rk) Social History Tobacco Use Types [...] 10:36 AM CDT Please fax referral to [facility] Telephone Encounter - Elisha Woodward MD - 09/08/2020 10:17 AM CDT I have placed a referral for Obey to get a colonoscopy at [facility]. I have also sent to Obey's pharmacy [facility] in [facility] for the GoLYTELY prep. After you fax the referral to [facility] in [facility] I would have you call [...] the next couple of days. He should apple picker he has proper from his pharmacy. And also let him know that this may be both scoping from above looking at his stomach as well as a colonoscopy. Telephone Encounter - Nisha Morrison RN - 09/08/2020 9:47 AM CDT Patient would like to do this at [facility]. Please place order. Prep instructions were mailed last week. Telephone Encounter - Eilsha Woodward MD - 09/08/2020 9:38 AM CDT [...] done. We could do it down at [facility] we could do it at [facility] at the [facility] site because of his underlying previous [...] up or he can stop by the [place] office and apple picker the prep sheet. I will also send [...] in his stool. Please call him at [phone]. documented in this encounter Plan of Treatment Scheduled Referrals Name Type Priority Associated Diagnoses Order S chedule Ambulatory External Outpatient Referral Routine Anemia, unspec ified Ordered: Referral type 09/08/2020 Guaiac positive stools documented as of this encounter Visit Diagnoses Diagnosis Anemia, unspecified type - Primary Guaiac positive stools Nonspecific abnormal finding in stool co ntents documented in this encounter Care Teams Loan Auditor Relationship Specialty Start Date End Date None, Pcp PCP - General Vocational Rehabilitation Consultant 03/29/20 12/31/[address] [place] [phone] documented as of this encounter
--- OUTSIDE RECORDS SUMMARY | 2022-04-11 08:04 | XMS_ITS | Encounter Summary ---
:[address] [facility] Address [address] [place] [address] Care Team Providers Name Role Phone None, Pcp Primary Care Provider Unavailable Encounter Details Date Type Department Care Team Description 09/08/2020 Orders Only Elisha Young Colon cancer screening [address] MD Dontrell (Primary Dx) [place], [place] [address] [facility] 20 [place] [address] Social History Tobacco Use Types Packs/Day Years [...] colon documented in this encounter Care Teams Senior Nurse Manager Relationship Specialty Start Date End Date None, Pcp PCP - General Testing Analyst 03/29/20 12/31/20 [address] [place] [address] documented as of this encounter
--- OUTSIDE RECORDS SUMMARY | 2022-04-11 08:04 | XMS_ITS | Encounter Summary ---
:1940 Author Organization [facility] Address [address] [place] [address] Care Team Providers Name Role Phone None, Pcp Primary Care Provider Unavailable Reason for Visit Reason Onset Date Comments med question 03/31/2020 Encounter Details Date Type Department Care Team Description 03/31/2020 Telephone [place] Elisha Woodward MD med question [address] [place], [place] [address] [place], [place] [phone] (Wo rk) Social History Tobacco Use Types [...] call ahead to schedule with the nurse. CTOR SOFTWARE Telephone Encounter - Janki Ortiz - 03/31/2020 9:47 AM CST Pt has question about how to take his ear drops? CTOR SOFTWARE documented in this encounter Plan of Treatment Not on filedocumented as of this encounter Visit Diagnoses Not on filedocumented in this encounter Care Teams Carton Maker Relationship Specialty Start Date End Date None, Pcp PCP - General Asbestos Removal Worker 03/29/20 12/31/20 [address] [place] [address] documented as of this encounter
--- OUTSIDE RECORDS SUMMARY | 2022-04-11 08:04 | XMS_ITS | Encounter Summary ---
:1940 Author Organization [facility] Address [address] [place] [address] Care Team Providers Name Role Phone None, Pcp Primary Care Provider Unavailable Reason for Visit Reason Onset Date Comments Schedule ENT 04/05/2020 Encounter Details Date Type Department Care Team Description 04/05/2020 Telephone [facility] [place], Brendon Arceo MD Schedule ENT [address] [place] [address] Social History Tobacco Use Types Packs/Day Years [...] an appointment with ENT preferably Dr. Haney RAL FORECASTER documented in this encounter Plan of Treatment Not on filedocumented as of this encounter Visit Diagnoses Not on filedocumented in this encounter Care Teams Academic Coach Relationship Specialty Start Date End Date None, Pcp PCP - General Avp 03/29/20 12/31/20 [address] [place] [address] documented as of this encounter
--- OUTSIDE RECORDS SUMMARY | 2022-04-11 08:04 | XMS_ITS | Encounter Summary ---
:1940 Author Organization [facility] Address [address] [place] [address] Care Team Providers Name Role Phone None, Pcp Primary Care Provider Unavailable Reason for Visit Reason Onset Date Comments med questions 09/13/2020 Encounter Details Date Type Department Care Team Description 09/13/2020 Telephone [place] None, Pcp med questions [address] [place], [place] [address] [place], [place] [phone] [address] Social History Tobacco Use Types Packs/Day [...] Bradford LPN - 09/13/2020 10:05 AM CDT 28th or 29 he is going to have his colonoscopy. He needs to be off Plavix informed him that he is not on that. He was informed to stop aspirin and he was already told to do that. Telephone Encounter - Arti Amaya - 09/13/2020 9:38 AM CDT Pt called asking to talk with a nurse with some medication questions. Please call Pt at [phone] advise. documented in this encounter Plan of Treatment Not on filedocumented as of this encounter Visit Diagnoses Not on filedocumented in this encounter Care Teams Gas Welding Machine Operator Relationship Specialty Start Date End Date None, Pcp PCP - General Flatbed Company Driver 03/29/20 12/31/[address] [place] [address] documented as of this encounter
--- OUTSIDE RECORDS SUMMARY | 2022-04-11 08:04 | XMS_ITS | Encounter Summary ---
:1940 Author Organization [facility] Address [address] [place] [address] Care Team Providers Name Role Phone None, Pcp Primary Care Provider Unavailable Encounter Details Date Type Department Care Team Description 07/21/2020 Immunization Family Medicine [address] [place] [address] Social History Tobacco Use Types Packs/Day Years [...] on filedocumented in this encounter Care Teams Auditor Internal Relationship Specialty Start Date End Date None, Pcp PCP - General Polisher Eyeglass Frames 03/29/20 12/31/20 [address] [place] [address] documented as of this encounter
--- OUTSIDE RECORDS SUMMARY | 2022-04-11 08:04 | XMS_ITS | Encounter Summary ---
:1940 Author Organization [facility] Address [address] [place] [address] Care Team Providers Name Role Phone None, Pcp Primary Care Provider Unavailable Reason for Referral Consultation (Routine) - Closed Specialty Diagnoses / Procedures Referred By Contact Refer red To Contact Otolaryngology Diagnoses Impacted cerumen of left ear Aydin Calix MD Ear Nose Throat [address] [place], [place] [address] Referral ID Status Reason Start Date Expiration Date Visits V isits Requested Authorized [id number] Closed Specialty 04/04/2020 04/04/2021 1 1 Services Required Scheduling Instructions Please call the ENT Supervisor Cabinetmaker desk at [phone]. [phone] to schedule an appointment. ODILE FARMER Reason for Visit Reason Comments Ear Problem Follow up from last week, rhonda villaseñor Encounter Details Date Type Department Care Team Description 04/04/2020 Office Visit Aydin Gil, Impacted cerumen of [address] left ear (Primary Dx) [place], [place] [address] [place] [address] [place], [place] [phone] [address] Social History Tobacco Use Types Packs/Day Years [...] Comments Blood Pressure 128/72 04/04/2020 9:55 AM CROCODILE FARMER Pulse 69 04/04/2020 9:55 AM CROCODILE FARMER Temperature 36.9 ??C (98.4 ??F) 04/04/2020 9:55 AM CROCODILE FARMER Respiratory Rate 16 04/04/2020 9:55 AM CROCODILE FARMER Oxygen Saturation 96% 04/04/2020 9:55 AM CROCODILE FARMER Inhaled Oxygen Concentration - - Weight 70 kg (154 lb 6.4 oz) 04/04/2020 9:55 AM CROCODILE FARMER Height - - Body Mass Index 24.99 03/29/2020 10:39 AM CROCODILE FARMER documented in this encounter Patient Instructions Patient [...] Follow these instructions at home: ?? Take sefu-tjl-unjughm and prescription medicines only as told by [...] clean them according to instructions from the naphtha washing system operator and your health care provider. Contact a [...] 05/29/2005 Document Revised: 04/02/2018 Document Reviewed: 07/02/2017 [facility] Interactive Patient Education ?? 2020 GIVTED. ODILE FARMER documented in this encounter Progress Notes Aydin [...] improve. Note created using voice dictation software. ODILE FARMER documented in this encounter Plan of Treatment Scheduled Referrals Name Type Priority Associated Order Schedule Diagnoses Ambulatory referral Outpatient Referral Routine Impacted cerum en of Ordered: to ENT left ear 04/04/2020 documented as of this encounter Visit Diagnoses Diagnosis Impacted cerumen of left ear - Primary Impacted cerumen documented in this encounter Care Teams Eyeglass Lens Generator Relationship Specialty Start Date End Date None, Pcp PCP - General Cable Installer Repairer Helper 03/29/20 12/31/20 [address] [place] [address] documented as of this encounter
--- OUTSIDE RECORDS SUMMARY | 2022-04-11 08:04 | XMS_ITS | Encounter Summary ---
:1940 Author Organization [facility] Address [address] [place] [address] Care Team Providers Name Role Phone None, Pcp Primary Care Provider Unavailable Reason for Visit Reason Onset Date Comments Labs Only 08/30/2020 Encounter Details Date Type Department Care Team Description 08/30/2020 Telephone [place] None, Pcp Labs Only [address] [facility] [place] [place] [address] [place] [address] Social History Tobacco Use Types [...] You may call the patient back to machine operator picker this kit. Telephone Encounter - Melinda Le MA - 08/30/2020 3:27 PM CDT The hospital lab called and stated that the patient's IFOBT had to be cancelled due to the specimen being too thick. Please replace order and than the patient can be called to machine operator picker another kit. documented in this encounter Plan of Treatment Not on filedocumented as of this encounter Results (ABNORMAL) Immunochemical Fecal Occult Blood (iFOBT)- outpatient (09/01/2020 8:10 AM CDT) [facility] gist Method Time Signature Immunochemical POSITIVE Negative 09/01/2020 [place] Fecal Occult (A) 1:09 PM CDT [facility] LABORATORY Specimen Anatomical Collection Method Collection Time Receive d Time (Source) Location / / Volume Laterality Stool 09/01/2020 8:10 AM CDT 12:36 PM CDT Elisha Woodward MD LAB BODY FLUIDS AND STOOLS O RDERABLES Performing Organization Address City/State/ZIP Code Phon e Number [facility] [address] [place] [address] documented in this encounter Visit Diagnoses Diagnosis Anemia, unspecified type - Primary documented in this encounter Care Teams Curator Of Collections Relationship Specialty Start Date End Date None, Pcp PCP - General Pathology Laboratory Aides Teacher 03/29/20 12/31/20 [address] [place] [address] documented as of this encounter
--- OUTSIDE RECORDS SUMMARY | 2022-04-11 08:04 | XMS_ITS | Encounter Summary ---
:1940 Author Organization [facility] Address [address] [place] [address] Care Team Providers Name Role Phone None, Pcp Primary Care Provider Unavailable Encounter Details Date Type Department Care Team Description 09/08/2020 Orders Only [place] Elisha Woodward MD [address] [facility] [address] [place], [place] [address] [place], [place] [phone] (Wo rk) Social History Tobacco Use Types [...] on filedocumented in this encounter Care Teams Curing Room Supervisor Relationship Specialty Start Date End Date None, Pcp PCP - General Sign Writer Letterer Or Painter 03/29/20 12/31/20 [address] [place] [address] documented as of this encounter
--- OUTSIDE RECORDS SUMMARY | 2022-04-11 08:04 | XMS_ITS | Encounter Summary ---
:1940 Author Organization [facility] Address [address] [place] [address] Care Team Providers Name Role Phone None, Pcp Primary Care Provider Unavailable Encounter Details Date Type Department Care Team Description 09/01/2020 Lab [place] Anemia, unspecified type [address] [place], [place] [address] Social History Tobacco [...] Blood (iFOBT)- outpatient (09/01/2020 8:10 AM CDT) [facility] gist Method Time Signature Immunochemical POSITIVE Negative 09/01/2020 [place] Fecal Occult (A) 1:09 PM CDT [facility] Blood [place] [facility] Specimen Anatomical Collection Method Collection Time Receive d Time (Source) Location / / Volume Laterality Stool 09/01/2020 8:10 AM CDT 12:36 PM CDT D. Dontrell Woodward MD LAB BODY FLUIDS AND STOOLS O RDERABLES Performing Organization Address City/State/ZIP Code Phon e Number [facility] [address] [place] [address] documented in this encounter Visit Diagnoses Diagnosis Anemia, unspecified type documented in this encounter Care Teams Roll Former Relationship Specialty Start Date End Date None, Pcp PCP - General Clinical Staff Educator 03/29/20 12/31/[address] [place] [address] documented as of this encounter
--- OUTSIDE RECORDS SUMMARY | 2022-04-11 08:04 | XMS_ITS | Encounter Summary ---
:1940 Author Organization [facility] Address [address] [place] [address] Care Team Providers Name Role Phone None, Pcp Primary Care Provider Unavailable Reason for Visit Reason Comments Wants cholesterol checked Encounter Details Date Type Department Care Team Description 08/21/2020 Office Visit Elisha Young Hyperlipidemia, unspecified hyperlipidemia type (Primary Dx); [address] MD Dont[place] Screening for deficiency anemia; [place] [address] Essential h ypertension; [address] [place] [address] Diabetes mellitus screening [phone] [place] [address] Social History Tobacco Use Types Packs/Day Years [...] 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 His other medicationsinclude a small amount of [...] Signature Sodium 142 135 - 145 08/21/2020 [facility] mmol/L 12:57 PM CDT [place] Potassium 3.8 3.5 - 5.1 08/21/2020 [facility] mmol/L 12:57 PM CDT [place] Comment: . Chloride 105 98 - 107 mmol/L 08/21/2020 12:57 PM CDT [facility] [place] Comment: . CO2 27 22 - 31 mmol/L 08/21/2020 12:57 PM CDT [facility] [place] Comment: . Creatinine 1.0 0.6 - 1.4 mg/dL 08/21/2020 12:57 PM CDT [facility] [place] Comment: . BUN 9 5 - 25 mg/dL 08/21/2020 12:57 PM CDT [facility] [place] Comment: . Glucose 105 (H) 70 - 100 mg/dL 08/21/2020 12:57 PM [facility] [place] CDT Calcium, Total,S 8.7 8.4 - 10.2 mg/dL 08/21/2020 12:57 PM [facility] [place] CDT Comment: . Fasting? Yes 08/21/2020 10:35 AM CDT [facility] [place] Specimen Anatomical Collection Method Collection Time Receive d Time (Source) Location / / Volume Laterality Blood 08/21/2020 10:31 08/21/2020 AM CDT 10:35 AM CDT D. Dontrell Woodward MD LAB BLOOD ORDERABLES Performing Organization Address City/State/ZIP Code Phon e Number [facility] [place] [address] [place] [address] (ABNORMAL) Lipid panel (08/21/2020 10:31 AM CDT) athologist Signature Cholesterol 166 0 - 199 08/22/2020 [facility] mg/dL 2:11 PM CDT [facility] LAB[facility] Comment: Recommended by National Cholesterol Education Program (ATP III) -------- Cholesterol Ranges -------- <200 ?Desirable 200-239 ? Borderline high >=240 ? High Triglycerides 167 (H) 0 - 149 mg/dL 08/22/2020 2:11 PM CDT [facility] Comment: -------- TRIG Ranges -------- <150 ?Normal 150-199 ? Borderline high 200-499 ? High >=500 ? Very high HDL 37 (L) 40 - 250 mg/dL 08/22/2020 2:11 PM CDT [facility] Comment: -------- HDL Ranges -------- <40 ?Low 40-59 ?Normal >=60 ? Optimal LDL Calculated 96 0 - 99 mg/dL 08/22/2020 2:11 PM CDT [facility] Comment: -------- LDL Ranges [...] Number [facility] [address] [place] [address] documented in this encounter Visit Diagnoses Diagnosis Hyperlipidemia, unspecified hyperlipidem ia type - Primary Screening for deficiency anemia Screening for other and unspecified defi ciency anemia Essential hypertension Unspecified essential hypertension Diabetes mellitus screening Screening for diabetes mellitus documented in this encounter Care Teams Windows Application Packager Relationship Specialty Start Date End Date None, Pcp PCP - General Technical Services Analyst 03/29/20 12/31/20 210 [place] [address] documented as of this encounter
--- OUTSIDE RECORDS SUMMARY | 2022-04-11 08:04 | XMS_ITS | Encounter Summary ---
:1940 Author Organization [facility] Address [address] [place] [address] Care Team Providers Name Role Phone None, Pcp Primary Care Provider Unavailable Encounter Details Date Type Department Care Team Description 08/27/2020 Orders Only Elisha Young Colon cancer screening (Prim irvin Dx); [address] MD Dontrell Anemia, unspecified type [place], [place] [address] [facility] 20 [place] [address] Social History Tobacco Use Types Packs/Day Years [...] type documented in this encounter Care Teams Rural Carrier Associate Relationship Specialty Start Date End Date None, Pcp PCP - General Heel Dipper 03/29/20 12/31/20 210 [place] [address] documented as of this encounter
--- OUTSIDE RECORDS SUMMARY | 2022-04-11 08:04 | XMS_ITS | Encounter Summary ---
:[address] [facility] Address [address] [place] [address] Care Team Providers Name Role Phone None, Pcp Primary Care Provider Unavailable Encounter Details Date Type Department Care Team Description 10/15/2020 Orders Only [place] Elisha Woodward MD [address] [facility] [address] [place], [place] [address] [place], [place] [phone] (Wo rk) Social History Tobacco Use Types [...] on filedocumented in this encounter Care Teams Executive Compensation Analyst Relationship Specialty Start Date End Date None, Pcp PCP - General Printer Maintainer 03/29/20 12/31/20 210 [place] [address] documented as of this encounter
--- OUTSIDE RECORDS SUMMARY | 2022-04-11 08:04 | XMS_ITS | Encounter Summary ---
:1940 Author Organization [facility] Address [address] [place] [address] Care Team Providers Name Role Phone None, Pcp Primary Care Provider Unavailable Reason for Visit Reason Onset Date Comments Lab result 09/01/2020 Encounter Details Date Type Department Care Team Description 09/01/2020 Telephone [place] Elisha Woodward MD Lab result [address] [place], [place] [address] [place], [place] [phone] (Wo rk) Social History Tobacco Use Types [...] have sent to his pharmacy for the [employer] prep. If you could please send him [...] if possible. Please call Pt at home [phone] or cell [phone] to advise. documented in this encounter Plan of Treatment Not on filedocumented as of this encounter Visit Diagnoses Diagnosis Colon cancer screening - Primary Special screening for malignant neoplasm s, colon documented in this encounter Care Teams Glassware Maker Relationship Specialty Start Date End Date None, Pcp PCP - General Emotionally Impaired Teacher 03/29/20 12/31/[address] [place] [address] documented as of this encounter
--- OUTSIDE RECORDS SUMMARY | 2022-04-11 08:04 | XMS_ITS | Encounter Summary ---
:1940 Author Organization [facility] Address [address] [place] [address] Care Team Providers Name Role Phone None, Pcp Primary Care Provider Unavailable Encounter Details Date Type Department Care Team Description 10/25/2020 Lab [place] Iron deficiency anemia due t o [address] chronic blood loss [place] [address] Social History Tobacco Use Types [...] Branch Off w/Diff (10/25/2020 9:17 AM CDT) [facility] gist Method Time Signature WBC 7.2 3.5 [...] [place] Granulocytes/Urszula 4.8 1.7 - 7.0 10/25/2020 [facility] [place] trophils K/uL 9:32 AM CDT [facility] Absolute Specimen Anatomical Collection Method Collection Time Receive d Time (Source) Location / / Volume Laterality 10/25/2020 9:17 AM 9:31 CDT AM CDT D. 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
--- OUTSIDE RECORDS SUMMARY | 2022-04-11 08:04 | XMS_ITS | Encounter Summary ---
:1940 Author Organization [facility] Address [address] [place] [address] Care Team Providers Name Role Phone None, Pcp Primary Care Provider Unavailable Encounter Details Date Type Department Care Team Description 10/15/2020 Telephone [place] Elisha Woodward MD [address] [place], [place] [address] [place], [place] [phone] (Wo rk) Social History Tobacco Use Types [...] on filedocumented in this encounter Care Teams Intern Retail Relationship Specialty Start Date End Date None, Pcp PCP - General Musical Instrument Maker 03/29/20 12/31/[address] [place] [phone] documented as of this encounter
--- OUTSIDE RECORDS SUMMARY | 2022-04-11 08:04 | XMS_ITS | Encounter Summary ---
:1940 Author Organization [facility] Address [address] [place] [address] Care Team Providers Name Role Phone None, Pcp Primary Care Provider Unavailable Reason for Visit Reason Comments Medicare Annual Wellness Visit Subsequent Encounter Details Date Type Department Care Team Description 10/25/2020 Clinical Support Margarito Love Medicare annual wellness [address] visit, subsequent YARIEL Cruz [address] (Primary Dx) [phone] Social History Tobacco Use Types Packs/Day Years [...] Team: Pcp None as PCP - General (Back Sizer) Eye Care: [facility] Dental Care: [facility] Pharmacy: [facility] [address] [place] [id number] Other: Visit Vitals BP 134/88 (BP Location: [...] pathological fracture ??? Atherosclerotic heart disease of ione coronary artery without angina pectoris ??? Disturbance [...] Gatherings with Friends and Family: ??? Attends Yarsanism Services: ??? Active Member of Clubs or [...] transfusion before 1991. ?? Those born between 1436-8767. Glaucoma: Medicare Part B (Medical Insurance) covers [...] Primary documented in this encounter Care Teams Staffing Assistant Relationship Specialty Start Date End Date None, Pcp PCP - General Back Sizer 03/29/20 12/31/[address] [place] [phone] documented as of this encounter
--- OUTSIDE RECORDS SUMMARY | 2022-04-11 08:04 | XMS_ITS | Encounter Summary ---
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 or transplanted heart; [phone] Gastroesophagea l reflux disease without esophagitis (Work) [...] 1 (one) time each day Atherosclerosis of [place] coronary artery without angina pectoris, unspecified whether [place] or transplanted heart - metoprolol succinate XL (TOPROL-XL) 25 MG 24 hr tablet; Take ONE pill ONCE a day for blood pressure. Do not crush or chew. Coronary artery 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 pectoris, unspecified vessel or lesion type, unspecified whether [place] or transplanted heart Gastroesophageal reflux disease without [...] Hyperlipidemia, unspecified hyperlipidem ia type Atherosclerosis of [place] coronary arter y without angina pectoris, unspecified whether 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 or transplant ed heart Gastroesophageal reflux disease without esophagitis Esophageal reflux documented in this encounter Care Teams Wire Photo Operator Relationship Specialty Start Date End Date None, Pcp PCP - General Nursing Agency Manager 03/29/20 12/31/20 [address] [place] [phone] documented as of this encounter
--- OUTSIDE RECORDS SUMMARY | 2022-04-11 08:04 | XMS_ITS | Encounter Summary ---
:1940 Author Organization [facility] Address [address] [place] [address] Care Team Providers Name Role Phone None, Pcp Primary Care Provider Unavailable Encounter Details Date Type Department Care Team Description 08/21/2020 Lab [place] Screening for deficiency ane elif; [address] Essential hypertension; [place], [place] [address] Diabetes mellitus screening; [phone] Hyperlipidemia, unspecified hyperlipidemia type Social History Tobacco [...] AM CDT) athologist Signature GFR >60 08/21/2020 [facility] 12:57 PM CDT [facility] >60 08/21/2020 [facility] North Korean GFR 12:57 PM CDT [facility] Comment: [...] Organization Address City/State/ZIP Code Phon e Number [facility] [address] [place] [address] (ABNORMAL) CBC Branch Off w/Diff (08/21/2020 10:31 AM CDT) Patholo gist Method Time Signature WBC 6.7 3.5 - 10.5 08/21/2020 [facility] [place] K/uL 10:41 AM CDT [place] RBC 4.50 4.30 - 08/21/2020 [facility] [place] 5.70 M/uL 10:41 AM CDT [place] Hemoglobin 12.8 (L) 13.5 - 08/21/2020 [facility] [place] 17.5 g/dL 10:41 AM CDT [place] Hematocrit 39.8 38.0 - 08/21/2020 [facility] [place] 50.0 % 10:41 AM CDT [place] Platelets 218 150 - 450 08/21/2020 [facility] [place] K/uL 10:41 AM CDT [place] MCV 88.4 81.2 - 08/21/2020 [facility] [place] 95.1 fL 10:41 AM CDT [place] MCH 28.4 26.0 - 08/21/2020 [facility] [place] 32.0 pg 10:41 AM CDT [place] MCHC 32.2 32.0 - 08/21/2020 [facility] [place] 36.0 g/dL 10:41 AM CDT [place] RDW 14.7 11.8 - 08/21/2020 [facility] [place] 15.6 % 10:41 AM CDT [place] Lymphocytes % 27.0 % 08/21/2020 [facility] [place] 10:41 AM CDT [place] Mid-size Cells 7.5 % 08/21/2020 [facility] [place] 10:41 AM CDT [place] Granulocytes/Urszula 65.5 % 08/21/2020 [facility] [place] trophils 10:41 AM CDT [place] Lymphocytes 1.8 0.9 - 2.9 08/21/2020 [facility] [place] Absolute K/uL 10:41 AM CDT [place] MIDS Absolute 0.5 0.4 - 1.5 08/21/2020 [facility] [place] K/uL 10:41 AM CDT [place] Granulocytes/Urszula 4.4 1.7 - 7.0 08/21/2020 [facility] [place] trophils K/uL 10:41 AM CDT [place] Absolute Specimen Anatomical Collection Method Collection Time Receive d Time (Source) Location / / Volume Laterality 08/21/2020 10:31 08/21/2020 AM CDT 10:35 AM CDT D. Dontrell Woodward MD LAB BLOOD ORDERABLES Performing Organization Address City/State/ZIP Code Phon e Number [facility] [place] [address] [place] [address] (ABNORMAL) Lipid panel (08/21/2020 10:31 AM CDT) P athologist Signature Cholesterol 166 0 - 199 08/22/2020 [facility] mg/dL 2:11 PM CDT [facility]ENTER [facility] Comment: Recommended by National Cholesterol Education Program (ATP III) -------- Cholesterol Ranges -------- <200 ?Desirable 200-239 ? Borderline high >=240 ? High Triglycerides 167 (H) 0 - 149 mg/dL 08/22/2020 2:11 PM CDT [facility] Comment: -------- TRIG Ranges -------- <150 ?Normal 150-199 ? Borderline high 200-499 ? High >=500 ? Very high HDL 37 (L) 40 - 250 mg/dL 08/22/2020 2:11 PM CDT [facility] Comment: -------- HDL Ranges -------- <40 ?Low 40-59 ?Normal >=60 ? Optimal LDL Calculated 96 0 - 99 mg/dL 08/22/2020 2:11 PM CDT [facility] Comment: -------- LDL Ranges -------- <100 ? Optimal 100-129 ?Near optimal/above op timal 130-159 ?Borderline high 160-189 ?High >=190 ?Very high Specimen Anatomical Collection Method Collection Time Receive d Time (Source) Location / / Volume Laterality Blood 08/21/2020 10:31 08/22/2020 AM CDT 12:50 PM CDT D. Dontrell Woodward MD LAB BLOOD ORDERABLES Performing Organization Address City/State/ZIP Code Phon e Number [facility] [address] [place] [address] (ABNORMAL) Basic metabolic panel (08/21/2020 10:31 AM CDT) P athologist Signature Sodium 142 135 - 145 08/21/2020 [facility] [place] mmol/L 12:57 PM CDT [place] Potassium 3.8 3.5 - 5.1 08/21/2020 [facility] [place] mmol/L 12:57 PM CDT [place] Comment: . Chloride 105 98 - 107 mmol/L 08/21/2020 12:57 PM CDT [facility] [place] Comment: . CO2 27 22 - 31 mmol/L 08/21/2020 12:57 PM CDT [facility] [place] Comment: . Creatinine 1.0 0.6 - 1.4 mg/dL 08/21/2020 12:57 PM CDT [facility] [place] Comment: . BUN 9 5 - 25 mg/dL 08/21/2020 12:57 PM CDT [facility] [place] Comment: . Glucose 105 (H) 70 - 100 mg/dL 08/21/2020 12:57 PM [facility] [place] CDT Calcium, Total,S 8.7 8.4 - 10.2 mg/dL 08/21/2020 12:57 PM [facility] [place] CDT Comment: . Fasting? Yes 08/21/2020 10:35 AM CDT [facility] [place] Specimen Anatomical Collection Method Collection Time Receive d Time (Source) Location / / Volume Laterality Blood 08/21/2020 10:31 08/21/2020 AM CDT 10:35 AM CDT D. Dontrell Woodward MD LAB BLOOD ORDERABLES Performing Organization Address City/State/ZIP Code Phon e Number [facility] [place] [address] [place] [address] documented in this encounter Visit Diagnoses Diagnosis Screening for deficiency anemia Screening for other and unspecified defi ciency anemia Essential hypertension Unspecified essential hypertension Diabetes mellitus screening Screening for diabetes mellitus Hyperlipidemia, unspecified hyperlipidem ia type documented in this encounter Care Teams Environmental Advisor Relationship Specialty Start Date End Date None, Pcp PCP - General Teamcenter Solution Architect 03/29/20 12/31/20 [address] [place] [phone] documented as of this encounter
--- OUTSIDE RECORDS SUMMARY | 2022-04-11 08:05 | XMS_ITS | Encounter Summary ---
:1940 Author Organization [facility] Address [address] [place] [address] Care Team Providers Name Role Phone Laila Loco APRN, IRA Primary Care Provider [phone] Reason for Visit Reason Onset Date Comments Shoulder pain 11/11/2019 Encounter Details Date Type Department Care Team Description 11/11/2019 Telephone [place] Elisha Woodward MD Shoulder pain [address] [place], [place] [address] [place], [place] [phone] (Wo rk) Social History Tobacco Use Types [...] with a nurse. Please call Pt at [phone] to advise. documented in this encounter Plan [...] Organization Address City/State/ZIP Code Phon e Number [facility] [address] [place] [address] Liver panel (11/16/2019 8:19 AM CDT) athologist Signature Total Protein 7.0 6.3 - 8.2 11/16/2019 [place] g/dL 2:07 PM CDT [facility] Albumin, Serum 4.1 3.5 - 5.0 11/16/2019 [facility] g/dL 2:07 PM CDT [facility] Total Bilirubin 1.0 0.1 - 1.0 11/16/2019 [place] mg/dL 2:07 PM [facility] Bilirubin, <0.1 0.0 - 0.3 11/16/2019 [facility] Direct mg/dL 2:07 PM [facility] AST 25 8 - 48 U/L 11/16/2019 [place] 2:07 PM [facility] Alkaline 116 38 - 128 11/16/2019 [facility] Phosphatase U/L 2:07 PM [facility] ALT (SGPT) 20 0 - 49 U/L 11/16/2019 [place] 2:07 PM [facility] Specimen Anatomical Collection Method Collection Time Receive d Time (Source) Location / / Volume Laterality Blood 11/16/2019 8:19 AM 0 1:02 CDT PM CDT D. Dontrell Woodward MD LAB BLOOD ORDERABLES Performing Organization Address City/State/ZIP Code Phon e Number [facility] [address] [place] [address] documented in this encounter Visit Diagnoses Diagnosis Diabetes mellitus screening - Primary Screening for diabetes mellitus Medication monitoring encounter Encounter for therapeutic drug monitorin g documented in this encounter Care Teams Jewelry Department Supervisor Relationship Specialty Start Date End Date Laila Loco, DIRECTOR OF OPERATIONS FOR THERAPY, CONSERVATION OFFICER PCP - General 12/09/17 01/10/[address] [place] [phone] documented as of this encounter
--- OUTSIDE RECORDS SUMMARY | 2022-04-11 08:05 | XMS_ITS | Encounter Summary ---
:1940 Author Organization [facility] Address [address] [place] [address] Care Team Providers Name Role Phone Unavailable Primary Care Provider Unavailable Reason for Visit Reason Comments Med Refill Encounter Details Date Type Department Care Team Description 03/07/2020 Refill Wendy Pillai Gastroesophageal reflux [address] [facility] EMD Lara disease without esophagitis YARIEL [place] [id number] Social History Tobacco Use Types Packs/Day Years [...] - 03/07/2020 1:59 PM CST Please advise CARRIER OPERATIONS INSPECTOR Telephone Encounter - Ellen Delgado RN - 03/07/2020 1:38 PM CST Margarito hanna patient--please advise on appointment/refill CARRIER OPERATIONS INSPECTOR Telephone Encounter - Isabel Cardoso MA - [...] to assist patient with scheduling. Thank you! CARRIER OPERATIONS INSPECTOR documented in this encounter Plan of Treatment Not on filedocumented as of this encounter Visit Diagnoses Diagnosis Gastroesophageal reflux disease without esophagitis Esophageal reflux documented in this encounter
--- OUTSIDE RECORDS SUMMARY | 2022-04-11 08:05 | XMS_ITS | Encounter Summary ---
:1940 Author Organization [facility] Address [address] [place] [address] Care Team Providers Name Role Phone Laila Loco APRN, IRA Primary Care Provider [phone] Encounter Details Date Type Department Care Team Description 04/22/2019 Lab [place] Prediabetes; [address] Screening PSA (prostate spec ific antigen); [place], [place] [address] Hyperlipidemia, unspecified hyperlipidemia type; [phone] Coronary artery 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 pectoris, unspecified vessel or lesion type, unspecified whether [place] or transplanted heart; Medication jose toring encounter; [...] 9:37 Hyperlipidemia, Results for this RATE AM CONSUMER LENDER unspecified procedure are i n hyperlipidemia t ype the results Coronary artery section. 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 pectoris, unspecified vessel or lesion type, unspecified whether [place] or transplanted heart Medication monitoring encounter CBC BRANCH OFFICE Routine 04/22/2019 9:37 Other fatigue Results for this W/DIFF AM CONSUMER LENDER Screening, anemia, procedure are in deficiency, iron the results section. PSA Routine 04/22/2019 9:37 Screening PSA Results for this AM CONSUMER LENDER (prostate specific procedure are in antigen) the results section. HEMOGLOBIN A1C Routine 04/22/2019 9:37 Prediabetes Results fo r this AM CONSUMER LENDER procedure are i n the results section. LIPID PANEL Routine 04/22/2019 9:37 Hyperlipidemia, Results f or this AM CONSUMER LENDER unspecified procedure are i n hyperlipidemia type the resu lts section. COMPREHENSIVE Routine 04/22/2019 9:37 Hyperlipidemia, Results for this METABOLIC PANEL AM CONSUMER LENDER unspecified procedure ar e in hyperlipidemia t ype the results Coronary artery section. 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 pectoris, unspecified vessel or lesion type, unspecified whether [place] or transplanted heart Medication monitoring encounter documented in this encounter Results (ABNORMAL) Glomerular filtration rate (GFR) (04/22/2019 9:37 AM CONSUMER LENDER) P athologist Signature GFR 53 (A) 04/22/2019 [facility] 1:05 PM CONSUMER LENDER [facility] >60 04/22/2019 [facility] Somali GFR 1:05 PM CONSUMER LENDER [facility] Comment: GFR calculated from serum creatinine v alue Chronic Kidney Disease less than 60 mL/m in/1.73 m2 Kidney Failure less than 15 mL/min/1.73 m2 Note: effective 09/17/06 IDMS-Traceable MDRD Study Equation used. Specimen Anatomical Collection Method Collection Time Receive d Time (Source) Location / / Volume Laterality 04/22/2019 9:37 AM 9 9:37 CONSUMER LENDER AM CONSUMER LENDER Laila Loco COMPOSITION MIXER, MAINTENANCE OF WAY SUPERVISOR LAB BLOOD ORDERABLES Performing Organization Address City/State/ZIP Code Phon e Number [facility] [address] [place] [address] CBC Branch Off w/Diff (04/22/2019 9:37 AM CONSUMER LENDER) P athologist Signature WBC 8.6 3.5 - 10.5 04/22/2019 [facility] [place] K/uL 9:48 AM CONSUMER LENDER [place] RBC 4.94 4.30 - 04/22/2019 [facility] [place] 5.70 M/uL 9:48 AM CONSUMER LENDER [place] Hemoglobin 15.1 13.5 - 04/22/2019 [facility] [place] 17.5 g/dL 9:48 AM CONSUMER LENDER [place] Hematocrit 45.4 38.0 - 04/22/2019 [facility] [place] 50.0 % 9:48 AM CONSUMER LENDER [place] Platelets 279 150 - 450 04/22/2019 [facility] [place] K/uL 9:48 AM CONSUMER LENDER [place] MCV 91.9 81.2 - 04/22/2019 [facility] [place] 95.1 fL 9:48 AM CONSUMER LENDER [place] MCH 30.6 26.0 - 04/22/2019 [facility] [place] 32.0 pg 9:48 AM CONSUMER LENDER [place] MCHC 33.3 32.0 - 04/22/2019 [facility] [place] 36.0 g/dL 9:48 AM CONSUMER LENDER [place] RDW 13.6 11.8 - 04/22/2019 [facility] [place] 15.6 % 9:48 AM CONSUMER LENDER [place] Lymphocytes % 18.8 18.0 - 04/22/2019 [facility] [place] 45.0 % 9:48 AM CONSUMER LENDER [place] Mid-size Cells 8.1 3.3 - 10.1 04/22/2019 [facility] [place] % 9:48 AM CONSUMER LENDER [place] Granulocytes/Urszula 73.1 45.8 - 04/22/2019 [facility] [place] trophils 73.7 % 9:48 AM CONSUMER LENDER [place] Lymphocytes 1.6 0.9 - 2.9 04/22/2019 [facility] [place] Absolute K/uL 9:48 AM CONSUMER LENDER [place] MIDS Absolute 0.7 0.2 - 0.8 04/22/2019 [facility] [place] K/uL 9:48 AM CONSUMER LENDER [place] Granulocytes/Urszula 6.3 2.1 - 8.7 04/22/2019 [facility] [place] trophils K/uL 9:48 AM [facility] [place] Absolute Specimen Anatomical Collection Method Collection Time Receive d Time (Source) Location / / Volume Laterality Blood 04/22/2019 9:37 AM 9 9:37 CONSUMER LENDER AM CONSUMER LENDER Laila Loco APRN, MAINTENANCE OF WAY SUPERVISOR LAB BLOOD ORDERABLES Performing Organization Address City/State/ZIP Code Phon e Number [facility] [place] [address] [place] [address] (ABNORMAL) Comprehensive metabolic panel (04/22/2019 9:37 AM CONSUMER LENDER) [facility] Method Time Signature Total Protein 8.3 (H) 6.3 - 8.2 04/22/2019 [place] g/dL 1:05 PM [facility] Albumin, Serum 4.3 3.5 - 5.0 04/22/2019 [facility] g/dL 1:05 PM [facility] Total Bilirubin 1.4 (H) 0.1 - 1.0 04/22/2019 [facility] mg/dL 1:05 PM [facility] AST 22 8 - 48 04/22/2019 [facility] U/L 1:05 PM [facility] Alkaline 135 (H) 38 - 128 04/22/2019 [facility] Phosphatase U/L 1:05 PM [facility] ALT (SGPT) 20 0 - 49 04/22/2019 [facility] U/L 1:05 PM [facility] Sodium 144 135 - 145 04/22/2019 [facility] mEq/L 1:05 PM [facility] Potassium 5.0 3.5 - 5.1 04/22/2019 [facility] mEq/L 1:05 PM [facility] Chloride 103 98 - 107 04/22/2019 [facility] mEq/L 1:05 PM [facility] CO2 30 22 - 31 04/22/2019 [facility] mmol/L 1:05 PM [facility] BUN 13 5 - 25 04/22/2019 [facility] mg/dL 1:05 PM [facility] Creatinine 1.3 0.6 - 1.4 04/22/2019 [facility] mg/dL 1:05 PM [facility] Glucose 127 (H) 70 - 100 04/22/2019 [facility] mg/dL 1:05 PM [facility] Calcium, Total,S 10.3 (H) 8.4 - 04/22/2019 [facility] 10.2 1:05 PM [facility] mg/dL LABORATORY Specimen Anatomical Collection Method Collection Time Receive d Time (Source) Location / / Volume Laterality Blood 04/22/2019 9:37 AM 9 CONSUMER LENDER 12:30 PM CONSUMER LENDER Laila Loco APRN, MAINTENANCE OF WAY SUPERVISOR LAB BLOOD ORDERABLES Performing Organization Address City/State/ZIP Code Phon e Number [facility] [address] [place] [address] (ABNORMAL) Lipid panel (04/22/2019 9:37 AM CONSUMER LENDER) athologist Signature Cholesterol 175 0 - 199 04/22/2019 [facility] mg/dL 1:05 PM [facility] Comment: Recommended by National Cholesterol Education Program (ATP III) -------- Cholesterol Ranges -------- <200 ? Desirable 200-239 ? Borderline high >=240 ? High Triglycerides 121 0 - 149 mg/dL 04/22/2019 1:05 PM [facility] Comment: -------- TRIG Ranges -------- <150 ?Normal 150-199 ? Borderline high 200-499 ? High >=500 ? Very high HDL 44 40 - 60 mg/dL 04/22/2019 1:05 PM [facility] Comment: -------- HDL Ranges -------- <40 ?Low 40-59 ?Normal >=60 ? Optimal LDL Calculated 107 (A) 0 - 99 mg/dL 04/22/2019 1:05 PM [facility] Comment: -------- LDL Ranges -------- <100 ? Optimal 100-129 ?Near optimal/above op timal 130-159 ?Borderline high 160-189 ?High >=190 ?Very high Fasting? Yes 04/22/2019 9:45 AM [facility] Specimen Anatomical Collection Method Collection Time Receive d Time (Source) Location / / Volume Laterality Blood 04/22/2019 9:37 AM 9 CONSUM[facility] LEND[facility] 12:30 PM CONSUMER LENDER Laila Loco APRN, IRA LAB BLOOD ORDERABLES Performing Organization Address City/[facility]/ZIP Code Phon e Number [facility] [address] [place] [address] PSA (04/22/2019 9:37 AM CONSUMER LENDER) athologist Signature Total PSA 1.3 0.0 - 7.0 04/23/2019 [facility] ng/mL 2:09 PM [facility] CENTER [facility]ORATORY Comment: The results [...] Volume Laterality Blood 04/22/2019 9:37 AM 9 CONSUMER LENDER 12:39 PM CONSUMER LENDER Laila Loco APRN, CNP LAB BLOOD ORDERABLES Performing Organization Address City/[facility]/ZIP Code Phon e Number [facility] [address] [place] [address] (ABNORMAL) Hemoglobin A1c (04/22/2019 9:37 AM CONSUMER LENDER) Analysis Performed At Patho logist Time Signature Hemoglobin A1C 5.9 (H) 4.0 - 5.6 04/22/2019 [facility] % A1C 1:05 PM CONSUM[facility] L[facility]ER [facility] Comment: Reference Range 4.0-5.6% [...] Volume Laterality Blood 04/22/2019 9:37 AM 9 CONSUM[facility]END[facility] 12:30 PM CONSUMER LENDER Laila Loco APRN, MAINTENANCE OF WAY SUPERVISOR LAB BLOOD ORDERABLES Performing Organization Address City/State/ZIP Code Phon e Number [facility] [address] [place] [address] documented in this encounter Visit Diagnoses Diagnosis Prediabetes Other abnormal glucose Screening PSA (prostate specific antigen ) Special screening for malignant neoplasm of prostate Hyperlipidemia, unspecified hyperlipidem ia type 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
--- OUTSIDE RECORDS SUMMARY | 2022-04-11 08:05 | XMS_ITS | Encounter Summary ---
:1940 Author Organization [facility] Address [address] [place] [address] Care Team Providers Name Role Phone Laila Loco APRN, PATHOLOGY TECHNICIAN Primary Care Provider [phone] Reason for Visit Reason Onset Date Comments Med Refill 11/26/2019 Encounter Details Date Type Department Care Team Description 11/26/2019 Refill Wendy Pillai Atherosclerosis of [place] co ronary artery without angina pectoris, unspecified whether [place] or transplanted heart; [facility] Rehan Varghese MD Gastroesophageal reflux dise ase without esophagitis; [place] [address] Hyperlipidemia, unspecified hyperlipidemia type [phone] Social History Tobacco Use Types Packs/Day Years [...] AM CDT Please advise-pt seen in 2019 [facility] Telephone Encounter - Khushbu Anthony - 11/26/2019 9:15 AM CDT Pt calls stating he was told by Dameon to contact Dr. Rosenthal for his med refills, since Rajan Loco is no longer with [facility]. Pt is going to be out soon and is wondering if Dr. Rosenthal could fill this until he can get in to see her. Please advise. documented in this encounter Plan of Treatment Not on filedocumented as of this encounter Visit Diagnoses Diagnosis Atherosclerosis of [place] coronary arter y without angina pectoris, unspecified whether [place] or transplanted heart Gastroesophageal reflux disease without esophagitis Esophageal reflux Hyperlipidemia, unspecified hyperlipidem ia type documented in this encounter Care Teams Newspaper Delivery Driver Relationship Specialty Start Date End Date Laila Loco, KENO DEALER, PATHOLOGY TECHNICIAN PCP - General 12/09/17 01/10/[address] [place] [address] documented as of this encounter
--- OUTSIDE RECORDS SUMMARY | 2022-04-11 08:05 | XMS_ITS | Encounter Summary ---
:1940 Author Organization [facility] Address [address] [place] [address] Care Team Providers Name Role Phone Laila Loco AUTOMOBILE SALES REPRESENTATIVE, REPORT CHECKER Primary Care Provider [phone] Encounter Details Date Type Department Care Team Description 04/26/2019 Orders Only [place] Laila Loco, Pneumonia of right [address] AUTOMOBILE SALES REPRESENTATIVE, REPORT CHECKER lower lobe due to Margarito Love, YARIEL [address] infectious organism [address] [place] [address] (HCC) (Primary Dx) [phone] Social History Tobacco Use Types Packs/Day Years [...] Primary documented in this encounter Care Teams Therapeutic Radiologist Relationship Specialty Start Date End Date Laila Loco, AUTOMOBILE SALES REPRESENTATIVE, REPORT CHECKER PCP - General 12/09/17 01/10/20 [address] [facility] [place] [address] documented as of this encounter
--- OUTSIDE RECORDS SUMMARY | 2022-04-11 08:05 | XMS_ITS | Encounter Summary ---
:1940 Author Organization [facility] Address [address] [place] [address] Care Team Providers Name Role Phone Laila Loco APRN, AUTOMOTIVE INTERNET SALES MANAGER Primary Care Provider [phone] Encounter Details Date Type Department Care Team Description 11/16/2019 Lab [place] Diabetes mellitus screening; [address] Medication monitoring encoun [place], [place] [address] Social History Tobacco Use [...] AM CDT) athologist Signature Fasting? Yes 11/16/2019 [facility] 8:21 AM T CENTER LABORATORY Specimen Anatomical Collection Method Collection Time Receive d Time (Source) Location / / Volume Laterality 11/16/2019 8:19 AM 0 8:21 CDT AM CDT D. Donrtell Woodward MD LAB BLOOD ORDERABLES Performing Organization Address City/State/ZIP Code Phon e Number [facility] [address] [place] [address] Liver panel (11/16/2019 8:19 AM CDT) athologist Signature Total Protein 7.0 6.3 - 8.2 11/16/2019 [place] g/dL 2:07 PM [facility] Albumin, Serum 4.1 3.5 - 5.0 11/16/2019 [place] g/dL 2:07 PM [facility] Total Bilirubin 1.0 0.1 - 1.0 11/16/2019 [place] mg/dL 2:07 PM [facility] Bilirubin, <0.1 0.0 - 0.3 11/16/2019 [place] Direct mg/dL 2:07 PM [facility] AST 25 8 - 48 U/L 11/16/2019 [place] 2:07 PM [facility] Alkaline 116 38 - 128 11/16/2019 [place] Phosphatase U/L 2:07 PM [facility] ALT (SGPT) 20 0 - 49 U/L 11/16/2019 [place] 2:07 PM [facility] Specimen Anatomical Collection Method Collection Time Receive d Time (Source) Location / / Volume Laterality Blood 11/16/2019 8:19 AM 0 1:02 CDT PM CDT Elisha Woodward MD LAB BLOOD ORDERABLES Performing Organization Address City/State/ZIP Code Phon e Number [facility] [address] [place] [address] (ABNORMAL) Glucose, fasting (11/16/2019 8:19 AM CDT) athologist Signature Glucose 107 (H) 70 - 100 11/16/2019 [facility] mg/dL 2:07 PM [facility] Specimen Anatomical Collection Method Collection Time Receive d Time (Source) Location / / Volume Laterality Blood (Blood, 11/16/2019 8:19 AM 11/16/19 20 1:02 Venous) CDT PM CDT Elisha Woodward MD LAB BLOOD ORDERABLES Performing Organization Address City/[facility]/ZIP Code Phon e Number [facility] [address] [place] [address] documented in this encounter Visit Diagnoses Diagnosis Diabetes mellitus screening Screening for diabetes mellitus Medication monitoring encounter Encounter for therapeutic drug monitorin g documented in this encounter Care Teams Overnight Babysitter Relationship Specialty Start Date End Date Laila Loco APRN, AUTOMOTIVE INTERNET SALES MANAGER PCP - General 12/09/17 01/10/20 [address] [place] [address] documented as of this encounter
--- OUTSIDE RECORDS SUMMARY | 2022-04-11 08:05 | XMS_ITS | Encounter Summary ---
:1940 Author Organization [facility] Address [address] [place] [address] Care Team Providers Name Role Phone Laila Loco APRN, IRA Primary Care Provider [phone] Reason for Visit Reason Onset Date Comments fax 10/05/2019 Encounter Details Date Type Department Care Team Description 10/05/2019 Telephone [place] Elisha Woodward MD fax [address] [place], [place] [address] [place], [place] [phone] (Wo rk) Social History Tobacco Use Types [...] them as prescribed. He uses [facility] in [facility] for a pharmacy. He stated he isn't [...] Morrison RN - 10/05/2019 2:31 PM CDT [facility] faxed that the patient's Metoprolol 25mg has not been filled regularly. Last Rx was written 08/2018. Please advise. documented in this encounter Plan of Treatment Not on filedocumented as of this encounter Visit Diagnoses Not on filedocumented in this encounter Care Teams Railcar Brake Operator Relationship Specialty Start Date End Date Loco, Laila M, COMMISSARY PRODUCTION SUPERVISOR, VP OF TECHNOLOGY PCP - General 12/09/17 01/10/20 [address] [place], [place] [address] documented as of this encounter
--- OUTSIDE RECORDS SUMMARY | 2022-04-11 08:05 | XMS_ITS | Encounter Summary ---
:1940 Author Organization [facility] Address [address] [place] [address] Care Team Providers Name Role Phone Lalia Loco SUPERVISOR FORMING AND TEMPERING, EAP SPECIALIST Primary Care Provider [phone] Reason for Visit Reason Onset Date Comments refill medication 09/02/2019 Encounter Details Date Type Department Care Team Description 09/02/2019 Telephone [place] Laila Loco, refill medication [address] SUPERVISOR FORMING AND TEMPERING, [place], [place] [address] [address] [phone] [place], [place] [address] Social History Tobacco Use [...] CDT Pt is at pharmacy wanting to peanut picker RX Telephone Encounter - Ellen Delgdao RN - 09/02/2019 10:27 AM CDT Pt is asking for Pantoprazole to be renewed, last visit 09/2018 shows he was not taking. Pt would like 90 day supply. Pt is on his way to pharmacy now. Pt had to change pharmacy to [facility] dueto his insurance. please advise on renewal Telephone Encounter - Kanwal Zarco - 09/02/2019 9:43 AM CDT Patient is on his way to [facility] pharmacy in [facility]. (he can not use the [place] pharmacy, his insurance changed) He needs his acid reflux medication. He needs this prescription send as soon aspossible. He is asking to talk to a nurse too! [phone]. documented in this encounter Plan of Treatment Not on filedocumented as of this encounter Visit Diagnoses Diagnosis Gastroesophageal reflux disease without esophagitis Esophageal reflux documented in this encounter Care Teams Store Team Member Relationship Specialty Start Date End Date Laila Loco, SUPERVISOR FORMING AND TEMPERING, EAP SPECIALIST PCP - General 12/09/17 01/10/20 100 [place] [address] documented as of this encounter
--- OUTSIDE RECORDS SUMMARY | 2022-04-11 08:05 | XMS_ITS | Encounter Summary ---
:1940 Author Organization [facility] Address [address] [place] [address] Care Team Providers Name Role Phone Laila Loco APRN, COMMERCIAL LAWN SPECIALIST Primary Care Provider [phone] Encounter Details Date Type Department Care Team [...] on filedocumented in this encounter Care Teams Aquatic Ecologist Relationship Specialty Start Date End Date Laila Loco, DESIGN MAKER, COMMERCIAL LAWN SPECIALIST PCP - General 12/09/17 01/10/20 [address] [facility] [place] [address] documented as of this encounter
--- OUTSIDE RECORDS SUMMARY | 2022-04-11 08:05 | XMS_ITS | Encounter Summary ---
:1940 Author Organization [facility] Address [address] [place] [address] Care Team Providers Name Role Phone Laila Loco APRN, FLIGHT TEST DATA ACQUISITION TECHNICIAN Primary Care Provider [phone] Reason for Visit Reason Comments Medicare Annual Wellness Visit Subsequent Encounter Details Date Type Department Care Team Description 04/22/2019 Office Visit [place] Medicare annual wellness [address] visit, subsequent [place], [place] [address] Social History Tobacco Use [...] Comments Blood Pressure 134/68 04/22/2019 8:29 AM [place] Pulse 86 04/22/2019 8:29 AM [place] Temperature 35.8 ??C (96.4 ??F) 04/22/2019 8:29 AM [place] Respiratory Rate 16 04/22/2019 8:29 AM [place] Oxygen Saturation 94% 04/22/2019 8:29 AM [facility] Inhaled Oxygen Concentration - - Weight 65 kg (143 lb 4.8 oz) 04/22/2019 8:29 AM [facility] Height 168 cm (5' 6.14) 04/22/2019 8:29 AM [facility] Body Mass Index 23.03 04/22/2019 8:29 AM [place] documented in this encounter Progress Notes Guillermina Bradford LPN - 04/22/2019 8:40 AM CST Annual Wellness Visit CARE TEAM / RESOURCES: Patient Care Team: Laila Loco APRN, FLIGHT TEST DATA ACQUISITION TECHNICIAN as PCP - General Eye Care: Dr. Miranda [place] Dental Care: NONE Jose Luis (quit) Pharmacy: [facility] - [address] [address] Other: Visit Vitals BP 134/68 (BP Location: [...] pathological fracture ??? Atherosclerotic heart disease of [place] coronary artery without angina pectoris ??? Disturbance [...] on phone: None Gets together: None Attends restorationism service: None Active member of club or [...] transfusion before 1991. ?? Those born between [birth year]68-5603. Glaucoma: Medicare Part B (Medical Insurance) covers [...] of one pack a dayfor 30 years). SORTER documented in this encounter Plan of Treatment Not on filedocumented as of this encounter Visit Diagnoses Diagnosis Medicare annual wellness visit, subseque nt documented in this encounter Care Teams Coach Professional Athletes Relationship Specialty Start Date End Date Laila Loco APRN, FLIGHT TEST DATA ACQUISITION TECHNICIAN PCP - General 12/09/17 01/10/[address] [place] [address] [place] [address] documented as of this encounter
--- OUTSIDE RECORDS SUMMARY | 2022-04-11 08:05 | XMS_ITS | Encounter Summary ---
:1940 Author Organization [facility] Address [address] [place] [address] Care Team Providers Name Role Phone Elisha Woodward MD Primary Care Provider Encounter Details Date Type Department Care Team Description 07/05/2019 Telephone [place] Laila Loco, [address] SHOWER DOORS AND PANELS FABRICATOR, [place], [place] [address] [phone] [place], [place] [address] Social History Tobacco Use [...] on filedocumented in this encounter Care Teams Labeling Strategist Relationship Specialty Start Date End Date Elisha Woodward MD PCP - General 01/01/[address] [place] [address] documented as of this encounter
--- OUTSIDE RECORDS SUMMARY | 2022-04-11 08:05 | XMS_ITS | Encounter Summary ---
:1940 Author Organization Address [address] [place] [address] Care Team Providers Name Role Phone Laila Loco CLINIC ADMINISTRATOR, INTERNET MARKETING DIRECTOR Primary Care Provider [phone] Encounter Details Date Type Department Care Team Description 04/26/2019 Orders Only [place] Laila Loco, Pneumonia of right [address] CLINIC ADMINISTRATOR, INTERNET MARKETING DIRECTOR lower lobe due to Margarito Love, YARIEL [address] infectious organism [address] [place] [address] (HCC) (Primary Dx) [phone] Social History Tobacco Use Types Packs/Day Years [...] Primary documented in this encounter Care Teams Handbag Parts Cutter Relationship Specialty Start Date End Date Laila Loco, CLINIC ADMINISTRATOR, INTERNET MARKETING DIRECTOR PCP - General 12/09/17 01/10/20 [address] [place] [address] documented as of this encounter
--- OUTSIDE RECORDS SUMMARY | 2022-04-11 08:05 | XMS_ITS | Encounter Summary ---
:1940 Author Organization [facility] Address [address] [place] [address] Care Team Providers Name Role Phone Laila Loco APRN, METAL BURNISHER Primary Care Provider [phone] Encounter Details Date Type Department Care Team Description 07/06/2019 Lab [place] Decreased appetite [address] [place], [place] [address] Social History Tobacco Use [...] carlos enrique etite Results for this RATE CIO procedure are i n the results section. CBC BRANCH OFFICE Routine 07/06/2019 9:16 AM Decreased appetit e Results for this W/DIFF CIO procedure are i n the results section. SEDIMENTATION RATE, Routine 07/06/2019 9:16 AM Decreased appet ite Results for this AUTOMATED CIO procedure are i n the results section. C-REACTIVE PROTEIN Routine 07/06/2019 9:16 AM Decreased appeti te Results for this CIO procedure are i n the results section. LIPASE Routine 07/06/2019 9:16 AM Decreased appetite Res ults for this CIO procedure are i n the results section. AMYLASE Routine 07/06/2019 9:16 AM Decreased appetite Res ults for this CIO procedure are i n the results section. COMPREHENSIVE Routine 07/06/2019 9:16 AM Decreased appetite Re sults for this METABOLIC PANEL CIO procedure ar e in the results section. documented in this encounter Results (ABNORMAL) Glomerular filtration rate (GFR) (07/06/2019 9:16 AM CIO) athologist Signature GFR 58 (A) 07/06/2019 [facility] 1:32 PM [facility] CENTER LAB[facility]ORY >60 07/06/2019 [facility] [place] GFR 1:32 PM [facility] Comment: GFR calculated from serum creatinine v alue Chronic Kidney Disease less than 60 mL/m in/1.73 m2 Kidney Failure less than 15 mL/min/1.73 m2 Note: effective 09/17/06 IDMS-Traceable MDRD Study Equation used. Specimen Anatomical Collection Method Collection Time Receive d Time (Source) Location / / Volume Laterality 07/06/2019 9:16 AM 0 9:16 CIO AM CIO Laila Loco APRN, METAL BURNISHER LAB BLOOD ORDERABLES Performing Organization Address City/State/ZIP Code Phon e Number [facility] [address] [place] [phone] CBC Branch Off w/Diff (07/06/2019 9:16 AM CIO) athologist Signature WBC 7.1 3.5 - 10.5 07/06/2019 [facility] K/uL 9:33 AM [place] RBC 5.12 4.30 - 07/06/2019 [place] 5.70 M/uL 9:33 AM [place] Hemoglobin 15.5 13.5 - 07/06/2019 [place] 17.5 g/dL 9:33 AM [place] Hematocrit 46.5 38.0 - 07/06/2019 [facility] 50.0 % 9:33 AM [place] Platelets 242 150 - 450 07/06/2019 [facility] K/uL 9:33 AM [place] MCV 90.8 81.2 - 07/06/2019 [facility] 95.1 fL 9:33 AM [place] MCH 30.3 26.0 - 07/06/2019 [facility] 32.0 pg 9:33 AM [place] MCHC 33.3 32.0 - 07/06/2019 [facility] 36.0 g/dL 9:33 AM [place] RDW 14.5 11.8 - 07/06/2019 [facility] 15.6 % 9:33 AM [place] Lymphocytes % 19.8 18.0 - 07/06/2019 [facility] 45.0 % 9:33 AM [place] Mid-size Cells 9.1 3.3 - 10.1 07/06/2019 [facility] % 9:33 AM [place] Granulocytes/Urszula 71.1 45.8 - 07/06/2019 [facility] trophils 73.7 % 9:33 AM [place] Lymphocytes 1.4 0.9 - 2.9 07/06/2019 [facility] Absolute K/uL 9:33 AM [place] MIDS Absolute 0.6 0.2 - 0.8 07/06/2019 [facility] K/uL 9:33 AM [place] Granulocytes/Urszula 5.1 2.1 - 8.7 07/06/2019 [facility] trophils K/uL 9:33 AM [place] Absolute Specimen Anatomical Collection Method Collection Time Receive d Time (Source) Location / / Volume Laterality Blood 07/06/2019 9:16 AM 0 9:21 CIO AM CIO Laila Loco SIGN INSTALLER, METAL BURNISHER LAB BLOOD ORDERABLES Performing Organization Address City/State/ZIP Code Phon e Number [facility] [address] [place] [address] (ABNORMAL) Comprehensive metabolic panel (07/06/2019 9:16 AM [facility]) [facility] Method Time Signature Total Protein 8.6 (H) 6.3 - 8.2 07/06/2019 [place] g/dL 1:32 PM [facility] Albumin, Serum 4.5 3.5 - 5.0 07/06/2019 [place] g/dL 1:32 PM [facility] Total Bilirubin 1.3 (H) 0.1 - 1.0 07/06/2019 [place] mg/dL 1:32 PM [facility] AST 26 8 - 48 U/L 07/06/2019 [place] 1:32 PM [facility] Alkaline 134 (H) 38 - 128 07/06/2019 [place] Phosphatase U/L 1:32 PM [facility] ALT (SGPT) 21 0 - 49 U/L 07/06/2019 [place] 1:32 PM [facility] Sodium 140 135 - 145 07/06/2019 [place] mEq/L 1:32 PM [facility] Potassium 4.2 3.5 - 5.1 07/06/2019 [place] mEq/L 1:32 PM [facility] Chloride 100 98 - 107 07/06/2019 [place] mEq/L 1:32 PM [facility] CO2 28 22 - 31 07/06/2019 [place] mmol/L 1:32 PM [facility] BUN 13 5 - 25 07/06/2019 [place] mg/dL 1:32 PM [facility] Creatinine 1.2 0.6 - 1.4 07/06/2019 [place] mg/dL 1:32 PM [facility] Glucose 117 (H) 70 - 100 07/06/2019 [place] mg/dL 1:32 PM [facility] Calcium, Total,S 9.7 8.4 - 10.2 07/06/2019 [place] mg/dL 1:32 PM [facility] Fasting? Yes 07/06/2019 [place] 9:21 AM [facility] Specimen Anatomical Collection Method Collection Time Receive d Time (Source) Location / / Volume Laterality Blood 07/06/2019 9:16 AM 0 [facility] 12:32 PM [facility] Laila Loco APRN, CNP LAB BLOOD ORDERABLES Performing Organization Address City/[facility]/ZIP [facility] Phon e Number [facility] [address] [place] [address] (ABNORMAL) Amylase (07/06/2019 9:16 AM [facility]) athologist Signature Amylase 173 (H) 30 - 110 07/06/2019 [facility] U/L 1:32 PM [facility] Specimen Anatomical Collection Method Collection Time Receive d Time (Source) Location / / Volume Laterality Blood (Blood, 07/06/2019 9:16 AM 07/06/19 20 Venous) CIO 12:32 PM [facility] Laila Loco APRN, CNP LAB BLOOD ORDERABLES Performing Organization Address [facility] Phon e Number [facility] [address] [place] [address] Lipase (07/06/2019 9:16 AM C[place]) athologist Signature Lipase 85 23 - 300 07/06/2019 [facility] U/L 1:32 PM [facility] Specimen Anatomical Collection Method Collection Time Receive d Time (Source) Location / / Volume Laterality Blood (Blood, 07/06/2019 9:16 AM 07/06/19 20 Venous) CIO 12:32 PM [facility] Laila Loco APRN, CNP LAB BLOOD ORDERABLES Performing Organization Address [facility] Phon e Number [facility] [address] [place] [address] (ABNORMAL) ESR-Sed rate (07/06/2019 9:16 AM C[facility]) athologist Signature Sed Rate 36 (H) 0 - 22 07/06/2019 [facility] mm/hr 1:40 PM [facility] Specimen Anatomical Collection Method Collection Time Receive d Time (Source) Location / / Volume Laterality Blood (Blood, 07/06/2019 9:16 AM 07/06/19 20 Venous) CIO 12:32 PM [place] Laila Loco APRN, CNP LAB BLOOD ORDERABLES Performing Organization Address City/[facility] Phon e Number [facility] [address] [place] [address] C-reactive protein (07/06/2019 9:16 AM CIO) athologist Signature CRP 2.0 0.0 - 4.9 07/06/2019 [facility] mg/L 1:32 PM [facility] Specimen Anatomical Collection Method Collection Time Receive d Time (Source) Location / / Volume Laterality Blood (Blood, 07/06/2019 9:16 AM 07/06/19 20 Venous) CIO 12:32 PM [facility] Laila Loco APRN, CNP LAB BLOOD ORDERABLES Performing Organization Address City/State/ZIP Code Phon e Number [facility] [address] [place] [address] documented in this encounter Visit Diagnoses Diagnosis Decreased appetite Anorexia documented in this encounter Care Teams Director Of Catering Sales Relationship Specialty Start Date End Date Laila Loco APRN, METAL BURNISHER PCP - General 12/09/17 01/10/20 [address] [place] [address] documented as of this encounter
--- OUTSIDE RECORDS SUMMARY | 2022-04-11 08:05 | XMS_ITS | Encounter Summary ---
:1940 Author Organization [facility] Address [address] [place] [address] Care Team Providers Name Role Phone Laila Loco APRN, CNP Primary Care Provider [phone] Reason for Visit Reason Comments Follow-up Coughing still and not eatin g Encounter Details Date Type Department Care Team Description 07/06/2019 Office Visit Vesta Laila Loco Decreased appetite [address] M, [place] WARD (Primary Dx) [place], [place] 100 [facility] [address] [place] [address] Social History Tobacco Use Types Packs/Day Years [...] Comments Blood Pressure 124/66 07/06/2019 8:34 AM ANTIQUE AUTOMOBILES REPAIRER Pulse 68 07/06/2019 8:34 AM ANTIQUE AUTOMOBILES REPAIRER Temperature 35.7 ??C (96.2 ??F) 07/06/2019 8:34 AM ANTIQUE AUTOMOBILES REPAIRER Respiratory Rate 16 07/06/2019 8:34 AM ANTIQUE AUTOMOBILES REPAIRER Oxygen Saturation 93% 07/06/2019 8:34 AM ANTIQUE AUTOMOBILES REPAIRER Inhaled Oxygen Concentration - - Weight 64.9 kg (143 lb) 07/06/2019 8:34 AM ANTIQUE AUTOMOBILES REPAIRER Height 167.6 cm (5' 5.98) 07/06/2019 8:34 AM ANTIQUE AUTOMOBILES REPAIRER Body Mass Index 23.09 07/06/2019 8:34 AM ANTIQUE AUTOMOBILES REPAIRER documented in this encounter Patient Instructions Patient InstructionsChsulema Loco APRN, CNP - 07/06/2019 8:40 AM ANTIQUE AUTOMOBILES REPAIRER Hold Calcium supplement One serving of coffee per day QUE AUTOMOBILES REPAIRER documented in this encounter Progress Notes [...] AM Decreased appeti te Results for this ANTIQUE AUTOMOBILES REPAIRER procedure are i n the results section. documented in this encounter Results X-ray abdomen 2 views (07/06/2019 9:35 AM ANTIQUE AUTOMOBILES REPAIRER) Anatomical Region Laterality Modality Body Radiographic Imaging Specimen (Source) Anatomical Collection Method Collection Time Re ceived Time Location / / Volume Laterality 07/06/2019 9:35 AM ANTIQUE AUTOMOBILES REPAIRER Impressions 07/06/2019 9:41 AM ANTIQUE AUTOMOBILES REPAIRER IMPRESSION: Bowel gas pattern is nonobstructive. If there is a clinical need for additional imaging, CT scan could be con sidered. Narrative 07/06/2019 9:41 AM ANTIQUE AUTOMOBILES REPAIRER INDICATION: decreased appetite COMPARISON: None available FINDINGS: [...] XR PROCEDURES C-reactive protein (07/06/2019 9:16 AM ANTIQUE AUTOMOBILES REPAIRER) athologist [facility] CRP 2.0 0.0 - 4.9 07/06/2019 [facility] mg/L 1:32 PM ANTIQUE AUTOMOBILES REPAIRER CENTER [facility] Specimen Anatomical Collection Method Collection Time Receive d Time (Source) Location / / Volume Laterality Blood (Blood, 07/06/2019 9:16 AM 07/06/19 20 Venous) ANTIQUE AUTOMOBILES REPAIRER 12:32 PM ANTIQUE AUTOMOBILES REPAIRER Laila Loco APRN, CNP LAB BLOOD ORDERABLES Performing Organization Address City/[facility]/ZIP Code Phon e Number [facility] [address] [place] [phone] (ABNORMAL) ESR-Sed rate (07/06/2019 9:16 AM ANTIQUE AUTOMOBILES REPAIRER) athologist [facility] Sed Rate 36 (H) 0 - 22 07/06/2019 [facility] mm/hr 1:40 PM ANTIQUE AUTOMOBILES REPAIRER [facility] Specimen Anatomical Collection Method Collection Time Receive d Time (Source) Location / / Volume Laterality Blood (Blood, 07/06/2019 9:16 AM 07/06/19 20 Venous) ANTIQUE AUTOMOBILES REPAIRER 12:32 PM ANTIQUE AUTOMOBILES REPAIRER Laila Loco APRN, CNP LAB BLOOD ORDERABLES Performing Organization Address City/[facility]/ZIP Code Phon e Number [facility] [address] [place] [phone] Lipase (07/06/2019 9:16 AM ANTIQUE AUTOMOBILES REPAIRER) athologist Signature Lipase 85 23 - 300 07/06/2019 [facility] 1:32 PM [facility] Specimen Anatomical Collection Method Collection Time Receive d Time (Source) Location / / Volume Laterality Blood (Blood, 07/06/2019 9:16 AM 07/06/19 20 Venous) ANTIQUE AUTOMOBILES REPAIRER 12:32 PM ANTIQUE AUTOMOBILES REPAIRER Laila Loco APRN, CNP LAB BLOOD ORDERABLES Performing Organization Address [facility] Phon e Number [facility] [address] [place] [phone] (ABNORMAL) Amylase (07/06/2019 9:16 AM ANTIQUE AUTOMOBILES REPAIRER) P athologist Signature Amylase 173 (H) 30 - 110 07/06/2019 [facility] 1:32 PM [facility] Specimen Anatomical Collection Method Collection Time Receive d Time (Source) Location / / Volume Laterality Blood (Blood, 07/06/2019 9:16 AM 07/06/19 20 Venous) ANTIQUE AUTOMOBILES REPAIRER 12:32 PM ANTIQUE AUTOMOBILES REPAIRER Laila Loco APRN, CNP LAB BLOOD ORDERABLES Performing Organization Address City/[facility] Code Phon e Number [facility] [address] [place] [phone] (ABNORMAL) Comprehensive metabolic panel (07/06/2019 9:16 AM ANTIQUE AUTOMOBILES REPAIRER) Patholo gist Method Time Signature Total Protein 8.6 (H) 6.3 - 8.2 07/06/2019 [facility] g/dL 1:32 PM [facility] Albumin, Serum 4.5 3.5 - 5.0 07/06/2019 [facility] g/dL 1:32 PM [facility] Total Bilirubin 1.3 (H) 0.1 - 1.0 07/06/2019 [facility] mg/dL 1:32 PM [facility] AST 26 8 - 48 U/L 07/06/2019 [facility] 1:32 PM [facility] Alkaline 134 (H) 38 - 128 07/06/2019 [facility] Phosphatase U/L 1:32 PM [facility] ALT (SGPT) 21 0 - 49 U/L 07/06/2019 [facility] 1:32 PM [facility] Sodium 140 135 - 145 07/06/2019 [facility] mEq/L 1:32 PM [facility] Potassium 4.2 3.5 - 5.1 07/06/2019 [facility] mEq/L 1:32 PM [facility] Chloride 100 98 - 107 07/06/2019 [facility] mEq/L 1:32 PM [facility] CO2 28 22 - 31 07/06/2019 [facility] mmol/L 1:32 PM [facility] BUN 13 5 - 25 07/06/2019 [facility] mg/dL 1:32 PM [facility] Creatinine 1.2 0.6 - 1.4 07/06/2019 [facility] mg/dL 1:32 PM [facility] Glucose 117 (H) 70 - 100 07/06/2019 [facility] mg/dL 1:32 PM [facility] Calcium, Total,S 9.7 8.4 - 10.2 07/06/2019 [facility] mg/dL 1:32 PM [facility] Fasting? Yes 07/06/2019 [facility] 9:21 AM [facility] Specimen Anatomical Collection Method Collection Time Receive d Time (Source) Location / / Volume Laterality Blood 07/06/2019 9:16 AM 0 ANTIQUE AUTOMOBILES REPAIRER 12:32 PM ANTIQUE AUTOMOBILES REPAIRER Laila Loco APRN, HOME CARE SCHEDULER LAB BLOOD ORDERABLES Performing Organization Address City/State/ZIP Code Phon e Number [facility] [address] [place] [phone] CBC Branch Off w/Diff (07/06/2019 9:16 AM ANTIQUE AUTOMOBILES REPAIRER) P athologist Signature WBC 7.1 3.5 - 10.5 07/06/2019 [facility] [place]/uL 9:33 AM ANTIQUE AUTOMOBILES REPAIRER [place] RBC 5.12 4.30 - 07/06/2019 [facility] [place] 5.70 M/uL 9:33 AM ANTIQUE AUTOMOBILES REPAIRER [place] Hemoglobin 15.5 13.5 - 07/06/2019 [facility] [place] 17.5 g/dL 9:33 AM ANTIQUE AUTOMOBILES REPAIRER [place] Hematocrit 46.5 38.0 - 07/06/2019 [facility] [place] 50.0 % 9:33 AM ANTIQUE AUTOMOBILES REPAIRER [place] Platelets 242 150 - 450 07/06/2019 [facility] [place] K/uL 9:33 AM ANTIQUE AUTOMOBILES REPAIRER [place] MCV 90.8 81.2 - 07/06/2019 [facility] [place] 95.1 fL 9:33 AM ANTIQUE AUTOMOBILES REPAIRER [place] MCH 30.3 26.0 - 07/06/2019 [facility] [place] 32.0 pg 9:33 AM ANTIQUE AUTOMOBILES REPAIRER [place] MCHC 33.3 32.0 - 07/06/2019 [facility] [place] 36.0 g/dL 9:33 AM ANTIQUE AUTOMOBILES REPAIRER [place] RDW 14.5 11.8 - 07/06/2019 [facility] [place] 15.6 % 9:33 AM ANTIQUE AUTOMOBILES REPAIRER [place] Lymphocytes % 19.8 18.0 - 07/06/2019 [facility] [place] 45.0 % 9:33 AM ANTIQUE AUTOMOBILES REPAIRER [place] Mid-size Cells 9.1 3.3 - 10.1 07/06/2019 [facility] [place] % 9:33 AM ANTIQUE AUTOMOBILES REPAIRER [place]ALLS Granulocytes/Urszula 71.1 45.8 - 07/06/2019 [facility] [place] trophils 73.7 % 9:33 AM ANTIQUE AUTOMOBILES REPAIRER [place] Lymphocytes 1.4 0.9 - 2.9 07/06/2019 [facility] [place] Absolute K/uL 9:33 AM ANTIQUE AUTOMOBILES REPAIRER [place] MIDS Absolute 0.6 0.2 - 0.8 07/06/2019 [facility] [place] K/uL 9:33 AM ANTIQUE AUTOMOBILES REPAIRER [place] Granulocytes/Urszula 5.1 2.1 - 8.7 07/06/2019 [facility] [place] trophils K/uL 9:33 AM ANTIQUE AUTOMOBILES REPAIRER [place] Absolute Specimen Anatomical Collection Method Collection Time Receive d Time (Source) Location / / Volume Laterality Blood 07/06/2019 9:16 AM 0 9:21 ANTIQUE AUTOMOBILES REPAIRER AM ANTIQUE AUTOMOBILES REPAIRER Laila Loco APRN, HOME CARE SCHEDULER LAB BLOOD ORDERABLES Performing Organization Address City/State/ZIP Code Phon e Number [facility] [place] [address] [place] [address] documented in this encounter Visit Diagnoses Diagnosis Decreased appetite - Primary Anorexia documented in this encounter Care Teams Research Interviewer Relationship Specialty Start Date End Date Laila Loco APRN, HOME CARE SCHEDULER PCP - General 12/09/17 01/10/[address] [place] [address] [place] [id number] documented as of this encounter
--- OUTSIDE RECORDS SUMMARY | 2022-04-11 08:05 | XMS_ITS | Encounter Summary ---
:1940 Author Organization [facility] Address [address] [place] [address] Care Team Providers Name Role Phone Laila Loco SUPERVISOR ADVERTISING DISPATCH CLERKS, MUSTANGER Primary Care Provider [phone] Encounter Details Date Type Department Care Team Description 07/06/2019 Orders Only [place] Constipation, [address] M, SUPERVISOR ADVERTISING DISPATCH CLERKS, [place] unspecified [place], [place] [address] constipation type [address] [place] [address] (Primary Dx) [phone] Social History Tobacco Use Types Packs/Day Years [...] Primary documented in this encounter Care Teams Carbonation Equipment Operator Relationship Specialty Start Date End Date Laila Loco, SUPERVISOR ADVERTISING DISPATCH CLERKS, MUSTANGER PCP - General 12/09/17 01/10/20 100 [facility] [place] [id number] documented as of this encounter
--- OUTSIDE RECORDS SUMMARY | 2022-04-11 08:05 | XMS_ITS | Encounter Summary ---
:1940 Author Organization [facility] Address [address] [place] [address] Care Team Providers Name Role Phone Laila Loco APRN, SUPERVISOR PLASTIC SHEETS Primary Care Provider [phone] Encounter Details Date Type Department Care Team [...] filedocumented in this encounter Care Teams Associate Field Service Engineer Relationship Specialty Start Date End Date Laila Loco, PYRIDINE OPERATOR, SUPERVISOR PLASTIC SHEETS PCP - General 12/09/17 01/10/20 100 [facility] [place] [id number] documented as of this encounter
--- OUTSIDE RECORDS SUMMARY | 2022-04-11 08:05 | XMS_ITS | Encounter Summary ---
:1940 Author Organization [facility] Address [address] [place] [address] Care Team Providers Name Role Phone Laila Loco APRN, [place] Primary Care Provider [phone] Reason for Visit Reason Onset Date Comments Shoulder pain 11/10/2019 Encounter Details Date Type Department Care Team Description 11/10/2019 Telephone Fowler Elisha Woodward MD Shoulder pain [address] [place], [place] [address] [place], [place] [phone] (Wo rk) Social History Tobacco Use Types [...] medications. Please call his cell phone at [phone]. documented in this encounter Plan of Treatment Not on filedocumented as of this encounter Visit Diagnoses Not on filedocumented in this encounter Care Teams Cushion Maker Relationship Specialty Start Date End Date Laila Loco, DIRECTOR OF LAND ACQUISITION, MUSIC JOURNALIST PCP - General 12/09/17 01/10/20 100 [place] [address] documented as of this encounter
--- OUTSIDE RECORDS SUMMARY | 2022-04-11 08:05 | XMS_ITS | Encounter Summary ---
:1940 Author Organization [facility] Address [address] [place] [address] Care Team Providers Name Role Phone Laila Loco APRN, CNP Primary Care Provider [phone] Reason for Visit Reason Comments Annual Exam Encounter Details Date Type Department Care Team Description 04/22/2019 Office Visit Laila Wilson Annual physical exam (Primar y Dx); [address] M, [place] Hyperlipidemia, unspecified hyperlipidem ia type; [place] [address] 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, unspecified vessel or lesion type, unspecified whether venetie ira or transplanted heart; [address] [place], [place] Cough; [phone] Prediabetes; [phone] Other fatigue; (Work) Medication jose toring encounter; [...] Comments Blood Pressure 148/86 04/22/2019 9:44 AM SOFTWARE LEAD Pulse 86 04/22/2019 8:27 AM SOFTWARE LEAD Temperature 35.8 ??C (96.4 ??F) 04/22/2019 8:27 AM SOFTWARE LEAD Respiratory Rate 16 04/22/2019 8:27 AM SOFTWARE LEAD Oxygen Saturation 94% 04/22/2019 8:27 AM SOFTWARE LEAD Inhaled Oxygen Concentration - - Weight 65 kg (143 lb 4.8 oz) 04/22/2019 8:27 AM SOFTWARE LEAD Height 168 cm (5' 6.14) 04/22/2019 8:27 AM SOFTWARE LEAD Body Mass Index 23.03 04/22/2019 8:27 AM SOFTWARE LEAD documented in this encounter Patient Instructions Patient InstructionsChsulema Loco APRN, CNP - 04/22/2019 8:40 AM SOFTWARE LEAD Will call with the lab results and official radiology report of the chest xray Could consider the [facility], pharmacy setting WARE LEAD documented in this encounter Progress Notes Laila Loco APRN, CNP - 04/22/2019 8:40 AM CST Well Adult - Estab Subjective Patient ID: Obey Vines is a 79 y.o. male presenting for the following concerns. Chief Complaint Patient presents with ??? Annual Exam HPI: The patient is a pleasant 79-year-old right hand dominant male presenting ambulatory to the [facility] today for a complete physical. The [...] events. 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 [...] file Gets together: Not on file Attends moravian service: Not on file Active member of [...] unspecified vessel or lesion type, unspecified whether venetie ira or transplanted heart - Comprehensive metabolic panel; [...] repeat a chest xray in 2 weeks. Liala Loco APRN, IRA WARE LEAD documented in this encounter Plan of Treatment Not on filedocumented as of this encounter Procedures Procedure Name Priority Date/Time Associated Diagnosis Comme nts XR CHEST 2 VIEWS Routine 04/22/2019 9:46 AM Cough Resul ts for this SOFTWARE LEAD procedure are i n the results section. documented in this encounter Results X-ray Chest 2 Views (04/22/2019 9:46 AM SOFTWARE LEAD) Anatomical Region Laterality Modality Body Radiographic Imaging Specimen (Source) Anatomical Collection Method Collection Time Re ceived Time Location / / Volume Laterality 04/22/2019 9:46 AM SOFTWARE LEAD Impressions 04/22/2019 9:54 AM SOFTWARE LEAD IMPRESSION: New peripheral right anterior basal lowe r lobe pneumonia Narrative 04/22/2019 9:54 AM SOFTWARE LEAD INDICATION: cough, crackles in the left lower lobe COMPARISON: 02/21/2015 FINDINGS: CXR: Min Two views: Frontal and lateral: There is a new peripheral right basal in filtrate which appears to be in the anterior basal right lower lobe.. ?? No pleural effusions. ??Mild hyperinflation is present. No pneumothorax. Procedure Note Diana Mcclure MD - 04/22/2019Formattin ricci of this note might be different from [...] PROCEDURES (ABNORMAL) Hemoglobin A1c (04/22/2019 9:37 AM SOFTWARE LEAD) Analysis Performed At Patho logist Time Signature Hemoglobin A1C 5.9 (H) 4.0 - 5.6 04/22/2019 [place] % A1C 1:05 PM [facility] Comment: Reference Range 4.0-5.6% [...] Volume Laterality Blood 04/22/2019 9:37 AM 9 SOFTWARE LEAD 12:30 PM SOFTWARE LEAD Laila Loco APRN, CNP LAB BLOOD ORDERABLES Performing Organization Address City/State/ZIP Code Phon e Number [facility] [address] [place] [address] PSA (04/22/2019 9:37 AM SOFTWARE LEAD) athologist Signature Total PSA 1.3 0.0 - 7.0 04/23/2019 [facility] ng/mL 2:09 PM SOFTWARE LEAD CENTER LABORATORY Comment: The results from this [...] Volume Laterality Blood 04/22/2019 9:37 AM 9 SOFTWARE LEAD 12:39 PM SOFTWARE LEAD Laila Loco APRN, CNP LAB BLOOD ORDERABLES Performing Organization Address City/State/ZIP Code Phon e Number [facility] [address] [place] [address] (ABNORMAL) Lipid panel (04/22/2019 9:37 AM SOFTWARE LEAD) athologist Signature Cholesterol 175 0 - 199 04/22/2019 [facility] mg/dL 1:05 PM [facility] Comment: Recommended by National Cholesterol Education Program (ATP III) -------- Cholesterol Ranges -------- <200 ? Desirable 200-239 ? Borderline high >=240 ? High Triglycerides 121 0 - 149 mg/dL 04/22/2019 1:05 PM [facility] Comment: -------- TRIG Ranges -------- <150 ?Normal 150-199 ? Borderline high 200-499 ? High >=500 ? Very high HDL 44 40 - 60 mg/dL 04/22/2019 1:05 PM [facility] Comment: -------- HDL Ranges -------- <40 ?Low 40-59 ?Normal >=60 ? Optimal LDL Calculated 107 (A) 0 - 99 mg/dL 04/22/2019 1:05 PM [facility] Comment: -------- LDL Ranges -------- <100 ? Optimal 100-129 ?Near optimal/above op timal 130-159 ?Borderline high 160-189 ?High >=190 ?Very high Fasting? Yes 04/22/2019 9:45 AM [facility] Specimen Anatomical Collection Method Collection Time Receive d Time (Source) Location / / Volume Laterality Blood 04/22/2019 9:37 AM 9 SOFTWARE LEAD 12:30 PM SOFTWARE LEAD Laila Loco DIVERSIFIED CROPS FARMER, TIMBER FRAMER HELPER LAB BLOOD ORDERABLES Performing Organization Address City/State/ZIP Code Phon e Number [facility] [address] [place] [phone] (ABNORMAL) Comprehensive metabolic panel (04/22/2019 9:37 AM SOFTWARE LEAD) [facility] gist Method Time Signature Total Protein 8.3 (H) 6.3 - 8.2 04/22/2019 [facility] g/dL 1:05 PM [facility] Albumin, Serum 4.3 3.5 - 5.0 04/22/2019 [facility] g/dL 1:05 PM [facility] Total Bilirubin 1.4 (H) 0.1 - 1.0 04/22/2019 [facility] mg/dL 1:05 PM [facility] AST 22 8 - 48 04/22/2019 [facility] U/L 1:05 PM [facility] Alkaline 135 (H) 38 - 128 04/22/2019 [facility] Phosphatase U/L 1:05 PM [facility] ALT (SGPT) 20 0 - 49 04/22/2019 [facility] U/L 1:05 PM [facility] Sodium 144 135 - 145 04/22/2019 [facility] mEq/L 1:05 PM [facility] Potassium 5.0 3.5 - 5.1 04/22/2019 [facility] mEq/L 1:05 PM [facility] Chloride 103 98 - 107 04/22/2019 [facility] mEq/L 1:05 PM [facility] CO2 30 22 - 31 04/22/2019 [facility] mmol/L 1:05 PM [facility] BUN 13 5 - 25 04/22/2019 [facility] mg/dL 1:05 PM [facility] Creatinine 1.3 0.6 - 1.4 04/22/2019 [facility] mg/dL 1:05 PM [facility] Glucose 127 (H) 70 - 100 04/22/2019 [facility] mg/dL 1:05 PM [facility] Calcium, Total,S 10.3 (H) 8.4 - 04/22/2019 [facility] 10.2 1:05 PM [facility] mg/dL LABORATORY Specimen Anatomical Collection Method Collection Time Receive d Time (Source) Location / / Volume Laterality Blood 04/22/2019 9:37 AM 9 SOFTWARE LEAD 12:30 PM SOFTWARE LEAD Laila Loco APRN, TIMBER FRAMER HELPER LAB BLOOD ORDERABLES Performing Organization Address City/State/ZIP Code Phon e Number [facility] [address] [place] [phone] CBC Branch Off w/Diff (04/22/2019 9:37 AM SOFTWARE LEAD) P athologist Signature WBC 8.6 3.5 - 10.5 04/22/2019 [facility] [place] K/uL 9:48 AM SOFTWARE LEAD [place] RBC 4.94 4.30 - 04/22/2019 [facility] [place] 5.70 M/uL 9:48 AM SOFTWARE LEAD [place] Hemoglobin 15.1 13.5 - 04/22/2019 [facility] [place] 17.5 g/dL 9:48 AM SOFTWARE LEAD [place] Hematocrit 45.4 38.0 - 04/22/2019 [facility] [place] 50.0 % 9:48 AM SOFTWARE LEAD [place] Platelets 279 150 - 450 04/22/2019 [facility] [place] K/uL 9:48 AM SOFTWARE LEAD [place] MCV 91.9 81.2 - 04/22/2019 [facility] [place] 95.1 fL 9:48 AM SOFTWARE LEAD [place] MCH 30.6 26.0 - 04/22/2019 [facility] [place] 32.0 pg 9:48 AM SOFTWARE LEAD [place] MCHC 33.3 32.0 - 04/22/2019 [facility] [place] 36.0 g/dL 9:48 AM SOFTWARE LEAD [place] RDW 13.6 11.8 - 04/22/2019 [facility] [place] 15.6 % 9:48 AM SOFTWARE LEAD [place] Lymphocytes % 18.8 18.0 - 04/22/2019 [facility] [place] 45.0 % 9:48 AM SOFTWARE LEAD [place] Mid-size Cells 8.1 3.3 - 10.1 04/22/2019 [facility] [place] % 9:48 AM SOFTWARE LEAD [place] Granulocytes/Urszula 73.1 45.8 - 04/22/2019 [facility] [place] trophils 73.7 % 9:48 AM SOFTWARE LEAD [place] Lymphocytes 1.6 0.9 - 2.9 04/22/2019 [facility] [place] Absolute K/uL 9:48 AM SOFTWARE LEAD [place] MIDS Absolute 0.7 0.2 - 0.8 04/22/2019 [facility] [place] K/uL 9:48 AM SOFTWARE LEAD [place] Granulocytes/Urszula 6.3 2.1 - 8.7 04/22/2019 [facility] [place] trophils K/uL 9:48 AM SOFTWARE LEAD [place] Absolute Specimen Anatomical Collection Method Collection Time Receive d Time (Source) Location / / Volume Laterality Blood 04/22/2019 9:37 AM 9 9:37 SOFTWARE LEAD AM SOFTWARE LEAD Laila Loco APRN, TIMBER FRAMER HELPER LAB BLOOD ORDERABLES Performing Organization Address City/State/ZIP Code Phon e Number [facility] [place] [address] [place] [address] documented in this encounter Visit Diagnoses Diagnosis Annual physical exam - Primary Routine general medical examination at a health care facility Hyperlipidemia, unspecified hyperlipidem ia type 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, unspecified vessel or lesion type, unspecified whether venetie ira or transplant ed heart Cough Prediabetes Other abnormal glucose Other fatigue Medication monitoring encounter Encounter for therapeutic drug monitorin g Screening PSA (prostate specific antigen ) Special screening for malignant neoplasm of prostate Screening, anemia, deficiency, iron Screening for iron deficiency anemia documented in this encounter Care Teams Croze Cutter Relationship Specialty Start Date End Date Laila Loco APRN, TIMBER FRAMER HELPER PCP - General 12/09/17 01/10/[address] [place] [address] [place] [id number] documented as of this encounter
--- OUTSIDE RECORDS SUMMARY | 2022-04-11 08:05 | XMS_ITS | Encounter Summary ---
:1940 Author Organization [facility] Address [address] [place] [address] Care Team Providers Name Role Phone None, Pcp Primary Care Provider Unavailable Reason for Visit Reason Comments Follow-up Ear cleaning Encounter Details Date Type Department Care Team Description 03/29/2020 Office Visit Elisha Young Bilateral impacted cerumen ( Primary Dx); [address] [place] 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, unspecified vessel or lesion type, unspecified whether [place] or transplanted heart; [place], [place] [address] Immunization due; [phone] [place] Excessive cerumen in ear canal, [place] [address] Social History Tobacco Use Types Packs/Day Years [...] Comments Blood Pressure 140/80 03/29/2020 10:39 AM CHUTE TAPPER Pulse 94 03/29/2020 10:39 AM CHUTE TAPPER Temperature 37 ??C (98.6 ??F) 03/29/2020 10:39 AM CHUTE TAPPER Respiratory Rate 16 03/29/2020 10:39 AM CHUTE TAPPER Oxygen Saturation 91% 03/29/2020 10:39 AM CHUTE TAPPER Inhaled Oxygen Concentration - - Weight 70.5 kg (155 lb 6.4 oz) 03/29/2020 10:39 AM CHUTE TAPPER Height 167.4 cm (5' 5.91) 03/29/2020 10:39 AM CHUTE TAPPER Body Mass Index 25.15 03/29/2020 10:39 AM CHUTE TAPPER documented in this encounter Progress Notes Elisha [...] though he also sees providers at the [facility] site here in [place]. 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 Just my own personal review SMOKING [...] he was working he worked in the [employer] business he has been for 52 years [...] unspecified vessel or lesion type, unspecified whether [place] or transplanted heart - nitroglycerin (NITROSTAT) [...] prescription for Debrox solution that he can roll picker at his local pharmacy. Returnas needed. E TAPPER documented in this encounter Miscellaneous Notes Addendum Note - Kathleen Pruitt RN - 03/29/2020 10:40 AM CHUTE TAPPER Addended by: KATHLEEN PRUITT on: 03/31/2020 09:15 AM Modules accepted: Orders E TAPPER Addendum Note - Kathleen Pruitt RN - 03/29/2020 10:40 AM CHUTE TAPPER Addended by: KATHLEEN PRUITT on: 03/31/2020 09:47 AM Modules accepted: Orders E TAPPER documented in this encounter Plan of Treatment Scheduled Orders Name Type Priority Associated Diagnoses Order S chedule Ear cerumen removal Procedures Routine Excessive cerumen in 1 Occurrences starting ear canal, bilateral 020 until 03/31/2021 documented as of this encounter Visit Diagnoses Diagnosis Bilateral impacted cerumen - Primary Impacted cerumen 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, unspecified vessel or lesion type, unspecified whether [place] or transplant ed heart Immunization due Excessive cerumen in ear canal, bilatera l documented in this encounter Care Teams Lead Rider Relationship Specialty Start Date End Date None, Pcp PCP - General Rear Admiral 03/29/20 12/31/[address] [place] [id number] documented as of this encounter
--- OUTSIDE RECORDS SUMMARY | 2022-04-11 08:05 | XMS_ITS | Encounter Summary ---
:1940 Author Organization [facility] Address [address] [place] [address] Care Team Providers Name Role Phone Laila Loco APRN, AMERICAN SIGN LANGUAGE TEACHER Primary Care Provider [phone] Encounter Details Date Type Department Care Team Description 06/28/2019 Lab [place] Cough [address] [place], [place] [address] Social History Tobacco Use [...] AM Cough Res ults for this W/DIFF TUNG NUT GROWER procedure are i n the results section. documented in this encounter Results (ABNORMAL) CBC Branch Off w/Diff (06/28/2019 11:22 AM TUNG NUT GROWER) [facility] gist Method Time Signature WBC 7.1 3.5 - 10.5 06/28/2019 [facility] K/uL 1:04 PM TUNG NUT GROWER [place] RBC 4.87 4.30 - 06/28/2019 [facility] 5.70 M/uL 1:04 PM TUNG NUT GROWER [place] Hemoglobin 14.6 13.5 - 06/28/2019 [facility] 17.5 g/dL 1:04 PM TUNG NUT GROWER [place] Hematocrit 44.6 38.0 - 06/28/2019 [facility] 50.0 % 1:04 PM TUNG NUT GROWER [place] Platelets 221 150 - 450 06/28/2019 [facility] K/uL 1:04 PM TUNG NUT GROWER [place] MCV 91.6 81.2 - 06/28/2019 [facility] 95.1 fL 1:04 PM TUNG NUT GROWER [place] MCH 30.0 26.0 - 06/28/2019 [facility] 32.0 pg 1:04 PM TUNG NUT GROWER [place] MCHC 32.7 32.0 - 06/28/2019 [facility] 36.0 g/dL 1:04 PM TUNG NUT GROWER [place] RDW 14.5 11.8 - 06/28/2019 [facility] 15.6 % 1:04 PM T[place] N[place] Lymphocytes % 18.9 18.0 - 06/28/2019 [facility] 45.0 % 1:04 PM TUNG NUT GROWER [place] Mid-size Cells 5.6 3.3 - 10.1 06/28/2019 [facility] % 1:04 PM T[place]G N[place] Granulocytes/Urszula 75.5 (H) 45.8 - 06/28/2019 [facility] trophils 73.7 % 1:04 PM T[place]G N[place] Lymphocytes 1.3 0.9 - 2.9 06/28/2019 [facility] Absolute K/uL 1:04 PM TUNG N[place] MIDS Absolute 0.4 0.2 - 0.8 06/28/2019 [facility] K/uL 1:04 PM TUNG NUT GROWER [place] Granulocytes/Urszula 5.4 2.1 - 8.7 06/28/2019 [facility] [place] trophils K/uL 1:04 PM TUNG NUT GROWER [place] Absolute Specimen Anatomical Collection Method Collection Time Receive d Time (Source) Location / / Volume Laterality Blood 06/28/2019 11:22 06/28/2019 AM TUNG NUT GROWER 11:22 AM TUNG NUT GROWER Laila Loco APRN, IRA LAB BLOOD ORDERABLES Performing Organization Address City/State/ZIP Code Phon e Number [facility] [place] [address] [place] [address] documented in this encounter Visit Diagnoses Diagnosis Cough documented in this encounter Care Teams Collections Curator Relationship Specialty Start Date End Date Laila Loco APRN, AMERICAN SIGN LANGUAGE TEACHER PCP - General 12/09/17 01/10/[address] [place] [address] [place] [address] documented as of this encounter
--- OUTSIDE RECORDS SUMMARY | 2022-04-11 08:05 | XMS_ITS | Encounter Summary ---
:1940 Author Organization [facility] Address [address] [place] [address] Care Team Providers Name Role Phone Laila Loco COLLECTOR, TELEPHONE SERVICE ADVISER Primary Care Provider [phone] Reason for Visit Reason Onset Date Comments Return call 04/26/2019 Encounter Details Date Type Department Care Team Description 04/26/2019 Telephone [place] Laila Loco, Return call [address] COLLECTOR, [place], [place] [address] 100 [facility] [phone] [place], [place] [address] Social History Tobacco Use [...] Loco APRN, IRA - 04/26/2019 1:52 PM MEDICAL DELIVERY DRIVER The patient was notified of the results of his chest xray. CAL DELIVERY DRIVER Telephone Encounter - Aliza Renee - 04/26/2019 1:22 PM CST Patient returned call from Rajan Loco. CAL DELIVERY DRIVER documented in this encounter Plan of Treatment Not on filedocumented as of this encounter Visit Diagnoses Not on filedocumented in this encounter Care Teams Alligator Hunter Relationship Specialty Start Date End Date Laila Loco APRN, TELEPHONE SERVICE ADVISER PCP - General 12/09/17 01/10/20 100 [facility] [place] [place] [address] documented as of this encounter
--- OUTSIDE RECORDS SUMMARY | 2022-04-11 08:05 | XMS_ITS | Encounter Summary ---
:1940 Author Organization [facility] Address [address] [place] [address] Care Team Providers Name Role Phone Laila Loco APRN, CNP Primary Care Provider [phone] Reason for Visit Reason Comments Cough Encounter Details Date Type Department Care Team Description 06/28/2019 Office Visit [place] Laila Loco Cough (Primary Dx); [address] M, [place] WARD Irregular heart rate [place] 100 [facility] [address] [place] [address] Social History Tobacco Use Types Packs/Day Years [...] Comments Blood Pressure 130/60 06/28/2019 10:33 AM PHYSICAL EDUCATION INSTRUCTOR Pulse 66 06/28/2019 10:33 AM PHYSICAL EDUCATION INSTRUCTOR Temperature 36.4 ??C (97.6 ??F) 06/28/2019 10:33 AM PHYSICAL EDUCATION INSTRUCTOR Respiratory Rate 16 06/28/2019 10:33 AM PHYSICAL EDUCATION INSTRUCTOR Oxygen Saturation 97% 06/28/2019 10:33 AM PHYSICAL EDUCATION INSTRUCTOR Inhaled Oxygen Concentration - - Weight 65.5 kg (144 lb 8 oz) 06/28/2019 10:33 AM PHYSICAL EDUCATION INSTRUCTOR Height 167.6 cm (5' 6) 06/28/2019 10:33 AM PHYSICAL EDUCATION INSTRUCTOR Body Mass Index 23.32 06/28/2019 10:33 AM PHYSICAL EDUCATION INSTRUCTOR documented in this encounter Patient Instructions Patient InstructionsChsulema Loco APRN, CNP - 06/28/2019 10:20 AM PHYSICAL EDUCATION INSTRUCTOR Zpak ICAL EDUCATION INSTRUCTOR documented in this encounter Progress Notes Laila [...] his symptoms started before he traveled to [facility] 5 days ago, returning on Friday 2, [...] plan of care. Laila Loco APRN, IRA ICAL EDUCATION INSTRUCTOR documented in this encounter Plan of Treatment Not on filedocumented as of this encounter Procedures Procedure Name Priority Date/Time Associated Diagnosis Comme nts XR CHEST 2 VIEWS Routine 06/28/2019 11:30 AM Cough Resu lts for this PHYSICAL EDUCATION INSTRUCTOR procedure are i n the results section. ECG 12-LEAD Routine 06/28/2019 12:00 AM Irregular heart rate Results for this PHYSICAL EDUCATION INSTRUCTOR procedure are i n the results section. documented in this encounter Results X-ray Chest 2 Views (06/28/2019 11:30 AM PHYSICAL EDUCATION INSTRUCTOR) Anatomical Region Laterality Modality Body Radiographic Imaging Specimen (Source) Anatomical Collection Method Collection Time Re ceived Time Location / / Volume Laterality 06/28/2019 11:30 AM PHYSICAL EDUCATION INSTRUCTOR Impressions 06/28/2019 11:39 AM PHYSICAL EDUCATION INSTRUCTOR IMPRESSION: Stable peripheral right basal interstiti al prominence which is likely postinflammatory fibrotic stranding. ??R esidual pneumonia is not totally excluded. Narrative 06/28/2019 11:39 AM PHYSICAL EDUCATION INSTRUCTOR INDICATION: cough COMPARISON: 04/22/2019 FINDINGS: CXR: Min [...] pneumonia is not totally excluded. Laila Loco GROUNDS KEEPER, CUSTOMS APPRAISER IMG XR PROCEDURES (ABNORMAL) CBC Branch Off w/Diff (06/28/2019 11:22 AM PHYSICAL EDUCATION INSTRUCTOR) [facility] Method Time Signature WBC 7.1 3.5 - 10.5 06/28/2019 [facility] K/uL 1:04 PM PHYSICAL EDUCATION INSTRUCTOR FALLS RBC 4.87 4.30 - 06/28/2019 [facility] 5.70 M/uL 1:04 PM PHYSICAL EDUCATION INSTRUCTOR [place] Hemoglobin 14.6 13.5 - 06/28/2019 [facility] 17.5 g/dL 1:04 PM PHYSICAL EDUCATION INSTRUCTOR [place] Hematocrit 44.6 38.0 - 06/28/2019 [facility] 50.0 % 1:04 PM PHYSICAL EDUCATION INSTRUCTOR FALL[place] Platelets 221 150 - 450 06/28/2019 [facility] K/uL 1:04 PM PHYSICAL EDUCATION INSTRUCTOR [place] MCV 91.6 81.2 - 06/28/2019 [facility] 95.1 fL 1:04 PM PHYSICAL EDUCATION INSTRUCTOR [place] MCH 30.0 26.0 - 06/28/2019 [facility] 32.0 pg 1:04 PM PHYSICAL EDUCATION INSTRUCTOR [place] MCHC 32.7 32.0 - 06/28/2019 [facility] 36.0 g/dL 1:04 PM PHYSICAL EDUCATION INSTRUCTOR [place] RDW 14.5 11.8 - 06/28/2019 [facility] 15.6 % 1:04 PM PHYSICAL EDUCATION INSTRUCTOR [place] Lymphocytes % 18.9 18.0 - 06/28/2019 [facility] 45.0 % 1:04 PM PHYSICAL EDUCATION INSTRUCTOR [place] Mid-size Cells 5.6 3.3 - 10.1 06/28/2019 [facility] % 1:04 PM PHYSICAL EDUCATION INSTRUCTOR [place] Granulocytes/Urszula 75.5 (H) 45.8 - 06/28/2019 [facility] trophils 73.7 % 1:04 PM PHYSICAL EDUCATION INSTRUCTOR [place] Lymphocytes 1.3 0.9 - 2.9 06/28/2019 [facility] Absolute K/uL 1:04 PM PHYSICAL EDUCATION INSTRUCTOR [place] MIDS Absolute 0.4 0.2 - 0.8 06/28/2019 [facility] K/uL 1:04 PM PHYSICAL EDUCATION INSTRUCTOR [place] Granulocytes/Urszula 5.4 2.1 - 8.7 06/28/2019 [facility] trophils K/uL 1:04 PM PHYSICAL EDUCATION INSTRUCTOR [place] Absolute Specimen Anatomical Collection Method Collection Time Receive d Time (Source) Location / / Volume Laterality Blood 06/28/2019 11:22 06/28/2019 AM PHYSICAL EDUCATION INSTRUCTOR 11:22 AM PHYSICAL EDUCATION INSTRUCTOR Laila Loco APRN, CNP LAB BLOOD ORDERABLES Performing Organization Address City/State/ZIP Code Phon e Number [facility] [place] [address] [place] [address] ECG 12 lead (06/28/2019 12:00 AM PHYSICAL EDUCATION INSTRUCTOR) Narrative 06/28/2019 12:00 AM PHYSICAL EDUCATION INSTRUCTOR This result has an attachment that is no t available. ECG for irregular heart rhythm performed , patient tolerated procedure well Laila Loco APRN, CNP ECG ORDERABLES documented in this encounter Visit Diagnoses Diagnosis Cough - Primary Irregular heart rate documented in this encounter Care Teams Laundry Tub Maker Relationship Specialty Start Date End Date Laila Loco APRN, IRA PCP - General 12/09/17 01/10/20 100 [facility] [place] [address] documented as of this encounter
--- OUTSIDE RECORDS SUMMARY | 2022-04-11 08:06 | XMS_ITS | Encounter Summary ---
:[address] [facility] Address [address] [place] [address] Care Team Providers Name Role Phone Laila Loco MOTOR LODGE CLERK, COMMERCIAL LOAN REVIEWER Primary Care Provider [phone] Encounter Details Date Type Department Care Team Description 08/11/2018 Telephone [place] Laila Loco, [address] MOTOR LODGE CLERK, [place], [place] [address] [address] [facility] [phone] [place], [place] [address] Social History Tobacco Use [...] on filedocumented in this encounter Care Teams Scrap Crusher Relationship Specialty Start Date End Date Laila Loco, MOTOR LODGE CLERK, COMMERCIAL LOAN REVIEWER PCP - General 12/09/17 01/10/20 100 [facility] [place] [id number] documented as of this encounter
--- OUTSIDE RECORDS SUMMARY | 2022-04-11 08:06 | XMS_ITS | Encounter Summary ---
:1940 Author Organization [facility] Address [address] [place] [address] Care Team Providers Name Role Phone Laila Loco APRN, TRAVELING STOREKEEPER Primary Care Provider [phone] Encounter Details Date Type Department Care Team Description 06/05/2018 Lab [place] Screening for diabetes melli tus; [address] Screening for prostate cance r; [place], [place] [address] Screening, anemia, deficienc y, iron; [phone] Hyperlipidemia, unspecified hyperlipidemia type Social History Tobacco [...] for diabetes Results for this FILTRATION RATE [facility] mellitus procedure ar e in the results section. CBC BRANCH OFFICE Routine 06/05/2018 8:53 AM Screening, anemia , Results for this W/DIFF [facility] deficiency, iron procedure a re in the results section. PSA Routine 06/05/2018 8:53 AM Screening for prostate Results for this [facility] cancer procedure are i n the results section. HEMOGLOBIN A1C Routine 06/05/2018 8:53 AM Screening for diabet es Results for this [facility] mellitus procedure are i n the results section. LIPID PANEL Routine 06/05/2018 8:53 AM Hyperlipidemia, Result s for this [facility] unspecified procedure are i n hyperlipidemia type the resu lts section. BASIC METABOLIC Routine 06/05/2018 8:53 AM Screening for diabe rachael Results for this PANEL [facility] mellitus procedure are i n the results section. documented in this encounter Results (ABNORMAL) Glomerular filtration rate (GFR) (06/05/2018 8:53 AM CLUB FORMER) athologist Signature GFR 59 (A) 06/05/2018 [facility] 9:07 AM [facility] >60 06/05/2018 [facility] [place] GFR 9:07 AM [facility] Comment: GFR calculated from serum creatinine v alue Chronic Kidney Disease less than 60 mL/m in/1.73 m2 Kidney Failure less than 15 mL/min/1.73 m2 Note: effective 09/17/06 IDMS-Traceable MDRD Study Equation used. Specimen Anatomical Collection Method Collection Time Receive d Time (Source) Location / / Volume Laterality 06/05/2018 8:53 AM 9 8:53 [facility] AM [facility] Laila Loco APRN, TRAVELING STOREKEEPER LAB BLOOD ORDERABLES Performing Organization Address City/State/ZIP Code Phon e Number [facility] [address] [place] [address] (ABNORMAL) Lipid panel (06/05/2018 8:53 AM CLUB FORMER) athologist Signature Cholesterol 171 0 - 199 06/05/2018 [facility] mg/dL 1:35 PM [facility] Comment: Recommended by National Cholesterol Education Program (ATP III) -------- Cholesterol Ranges -------- <200 ? Desirable 200-239 ? Borderline high >=240 ? High Triglycerides 142 0 - 149 mg/dL 06/05/2018 1:35 PM [facility] Comment: -------- TRIG Ranges -------- <150 ?Normal 150-199 ? Borderline high 200-499 ? High >=500 ? Very high HDL 37 (A) 40 - 60 mg/dL 06/05/2018 1:35 PM [facility] Comment: -------- HDL Ranges -------- <40 ?Low 40-59 ?Normal >=60 ? Optimal LDL Calculated 106 (A) 0 - 99 mg/dL 06/05/2018 1:35 PM [facility] Comment: -------- LDL Ranges -------- <100 ? Optimal 100-129 ?Near optimal/above op timal 130-159 ?Borderline high 160-189 ?High >=190 ?Very high Specimen Anatomical Collection Method Collection Time Receive d Time (Source) Location / / Volume Laterality Blood (Blood, 06/05/2018 8:53 AM 06/05/19 19 Venous) CL[facility] FOR[facility] 12:43 PM CLUB FORMER Laila Loco APRN, TRAVELING STOREKEEPER LAB BLOOD ORDERABLES Performing Organization Address City/State/ZIP Code Phon e Number [facility] [address] [place] [address] (ABNORMAL) Basic metabolic panel (06/05/2018 8:53 AM CLUB FORMER) P athologist Signature Sodium 143 135 - 145 06/05/2018 [facility] mmol/L 9:07 AM CLUB FORMER [place]S Potassium 3.2 (L) 3.5 - 5.1 06/05/2018 [facility] mmol/L 9:07 AM CL[facility] FOR[facility] [place] Comment: . Chloride 101 98 - 107 mmol/L 06/05/2018 9:07 AM [facility] [place] Comment: . CO2 32 (H) 22 - 31 mmol/L 06/05/2018 9:07 AM [facility] Comment: . Creatinine 1.2 0.6 - 1.4 mg/dL 06/05/2018 9:07 AM [facility] [place] Comment: . BUN 14 5 - 25 mg/dL 06/05/2018 9:07 AM [facility] [place] Comment: . Glucose 107 (H) 70 - 100 mg/dL 06/05/2018 9:07 AM [facility] [place] Calcium, Total,S 9.8 8.4 - 10.2 mg/dL 06/05/2018 9:07 AM CLUB FORMER [facility] [place] Comment: . Fasting? Yes 06/05/2018 9:00 AM CL[facility] CAN NON FALLS Specimen Anatomical Collection Method Collection Time Receive d Time (Source) Location / / Volume Laterality Blood (Blood, 06/05/2018 8:53 AM 06/05/19 19 9:00 Venous) CLUB FORMER AM CL[facility] FORMER Laila Loco APRN, TRAVELING STOREKEEPER LAB BLOOD ORDERABLES Performing Organization Address City/State/ZIP Code Phon e Number [facility] [place] [address] [place] [address] (ABNORMAL) CBC Branch Off w/Diff (06/05/2018 8:53 AM CLUB FORMER) Patholo gist Method Time Signature WBC 8.7 3.5 - 10.5 06/05/2018 [facility] K/uL 9:01 AM CL[facility] [place] RBC 4.74 4.30 - 06/05/2018 [facility] 5.70 M/uL 9:01 AM CL[facility] FORMER [place] Hemoglobin 14.5 13.5 - 06/05/2018 [facility] 17.5 g/dL 9:01 AM CLUB FORMER [place] Hematocrit 43.0 38.0 - 06/05/2018 [facility] 50.0 % 9:01 AM CL[facility] [place] Platelets 265 150 - 450 06/05/2018 [facility] [place] K/uL 9:01 AM CLUB FORMER [place] MCV 90.7 81.2 - 06/05/2018 [facility] [place] 95.1 fL 9:01 AM CLUB FORMER [place] MCH 30.6 26.0 - 06/05/2018 [facility] [place] 32.0 pg 9:01 AM CLUB FORMER [place] MCHC 33.7 32.0 - 06/05/2018 [facility] [place] 36.0 g/dL 9:01 AM CLUB [facility] [place] RDW 13.8 11.8 - 06/05/2018 [facility] 15.6 % 9:01 AM CL[facility] [place] Lymphocytes % 15.8 (L) 18.0 - 06/05/2018 [facility] [place] 45.0 % 9:01 AM CLUB FORMER [place] Mid-size Cells 8.1 3.3 - 10.1 06/05/2018 [facility] [place] % 9:01 AM CLUB FORMER [place] Granulocytes/Urszula 76.1 (H) 45.8 - 06/05/2018 [facility] [place] trophils 73.7 % 9:01 AM CLUB [facility] [place] Lymphocytes 1.4 0.9 - 2.9 06/05/2018 [facility] [place] Absolute K/uL 9:01 AM CLUB [facility] [place] MIDS Absolute 0.7 0.2 - 0.8 06/05/2018 [facility] [place] K/uL 9:01 AM CL[facility] FOR[facility] [place] Granulocytes/Urszula 6.6 2.1 - 8.7 06/05/2018 [facility] [place] trophils K/uL 9:01 AM CLUB FOR[facility] [place] Absolute Specimen Anatomical Collection Method Collection Time Receive d Time (Source) Location / / Volume Laterality Blood (Blood, 06/05/2018 8:53 AM 06/05/19 19 9:00 Venous) CLUB FORMER AM CLUB FORMER Laila Loco APRN, TRAVELING STOREKEEPER LAB BLOOD ORDERABLES Performing Organization Address City/State/ZIP Code Phon e Number [facility] [place] [address] [place] [address] PSA (06/05/2018 8:53 AM CLUB FORMER) P athologist Signature Total PSA 1.1 0.0 - 7.0 06/05/2018 [facility] ng/mL 2:05 PM CL[facility] CENTER LAB[facility]ORY Comment: The results from this [...] Blood (Blood, 06/05/2018 8:53 AM 06/05/19 Venous) CLUB [facility] 12:45 PM CLUB FORMER Laila Loco APRN, CNP LAB BLOOD ORDERABLES Performing Organization Address [facility] Phon e Number [facility] [address] [place] [address] (ABNORMAL) Hemoglobin A1c (06/05/2018 8:53 AM CLUB FORMER) Analysis Performed At [facility] Time Signature Hemoglobin A1C 5.8 (H) 4.0 - 5.6 06/05/2018 [place] % A1C 2:[address] [facility] Comment: Reference Range 4.0-5.6% is for [...] Blood (Blood, 06/05/2018 8:53 AM 06/05/19 Venous) CLUB FORMER 12:43 PM CLUB [facility]MER Laila Loco APRN, CNP LAB BLOOD ORDERABLES Performing Organization Address [facility] Phon e Number [facility] [address] [place] [address] documented in this encounter Visit Diagnoses Diagnosis Screening for diabetes mellitus Screening for prostate cancer Special screening for malignant neoplasm of prostate Screening, anemia, deficiency, iron Screening for iron deficiency anemia Hyperlipidemia, unspecified hyperlipidem ia type documented in this encounter Care Teams Roller Skater Relationship Specialty Start Date End Date Laila Loco, DRY PASTE SUPERVISOR, TRAVELING STOREKEEPER PCP - General 12/09/17 01/10/20 100 [facility] [place] [address] documented as of this encounter
--- OUTSIDE RECORDS SUMMARY | 2022-04-11 08:06 | XMS_ITS | Encounter Summary ---
:1940 Author Organization [facility] Address [address] [place] [address] Care Team Providers Name Role Phone Laila Loco END WORKER, ROUGE MIXER Primary Care Provider [phone] Encounter Details Date Type Department Care Team Description 08/11/2018 Orders Only [place] Laila Loco, Cervical pain (neck) [address] [place] W[place] (Primary Dx) [place], [place] 100 [facility] [address] [place] [address] Social History Tobacco Use Types Packs/Day Years [...] Cervicalgia documented in this encounter Care Teams Band Scroll Saw Operator Relationship Specialty Start Date End Date Laila Loco, END WORKER, ROUGE MIXER PCP - General 12/09/17 01/10/20 100 [place] [address] documented as of this encounter
--- OUTSIDE RECORDS SUMMARY | 2022-04-11 08:06 | XMS_ITS | Encounter Summary ---
:1940 Author Organization [facility] Address [address] [place] [address] Care Team Providers Name Role Phone Laila Loco CHILD WELFARE SPECIALIST, CENTERPUNCHER Primary Care Provider [phone] Encounter Details Date Type Department Care Team Description 06/05/2018 Orders Only [place] Laila Loco, Hypokalemia (Primary [address] CHILD WELFARE SPECIALIST, CENTERPUNCHER Dx) [place], [place] 100 [facility] [address] [place] [address] Social History Tobacco Use Types Packs/Day Years [...] Hypopotassemia documented in this encounter Care Teams Rubber Worker Relationship Specialty Start Date End Date Laila Loco, CHILD WELFARE SPECIALIST, CENTERPUNCHER PCP - General 12/09/17 01/10/20 100 [place] [id number] documented as of this encounter
--- OUTSIDE RECORDS SUMMARY | 2022-04-11 08:06 | XMS_ITS | Encounter Summary ---
:[address] [facility] Address [address] [place] [address] Care Team Providers Name Role Phone Laila Loco PIPE ORGAN TECHNICIAN, ADVANCED NURSING PROFESSOR Primary Care Provider [phone] Reason for Visit Reason Comments Med Refill Encounter Details Date Type Department Care Team Description 11/23/2018 Refill [place] Laila Loco, Gastroesophageal reflux [address] [place] disease without [place], [place] [address] esophagitis [address] [place] [address] Social History Tobacco Use Types Packs/Day Years [...] reflux documented in this encounter Care Teams Structured Cabling Technician Relationship Specialty Start Date End Date Laila Loco APRN, ADVANCED NURSING PROFESSOR PCP - General 12/09/17 01/10/[address] [place] [address] [place] [address] documented as of this encounter
--- OUTSIDE RECORDS SUMMARY | 2022-04-11 08:06 | XMS_ITS | Encounter Summary ---
:1940 Author Organization [facility] Address [address] [place] [address] Care Team Providers Name Role Phone Laila Loco APRN, CNP Primary Care Provider [phone] Reason for Visit Reason Comments Cerumen Impaction Encounter Details Date Type Department Care Team Description 10/15/2018 Office Visit [place] Laila Loco Impacted cerumen of [address] M, [place] right ear (Primary [place] [address] Dx) [address] [place] [address] Social History Tobacco Use Types Packs/Day Years [...] Instructions Patient InstructionsChrismanuel Loco APRN, CNP - 10/15/2018 1:20 PM [...] his right ear, as recommended by his manager field sales. The patient has had decreased hearing. No [...] cerumen documented in this encounter Care Teams Belly Roller Relationship Specialty Start Date End Date Laila Loco APRN, CNP PCP - General 12/09/17 01/10/20 [address] [place] [address] documented as of this encounter
--- OUTSIDE RECORDS SUMMARY | 2022-04-11 08:06 | XMS_ITS | Encounter Summary ---
:1940 Author Organization [facility] Address [address] [place] [address] Care Team Providers Name Role Phone Laila Loco HOUSING AND RESIDENCE LIFE DIRECTOR, STARCH FACTORY LABORER Primary Care Provider [phone] Reason for Visit Reason Onset Date Comments Visit 08/21/2018 Encounter Details Date Type Department Care Team Description 08/21/2018 Telephone Laila Wilson, Visit [address] HOUSING AND RESIDENCE LIFE DIRECTOR, [place] [address] [address] [facility] [address] [phone] [place], [place] [address] Social History Tobacco Use [...] Encounter - Laila Loco APRN, [place] - 08/21/2018 9:41 AM CDT The patient [...] this afternoon. You can reach Astrid at [phone]. documented in this encounter Plan of Treatment Not on filedocumented as of this encounter Visit Diagnoses Not on filedocumented in this encounter Care Teams Tile Setter Supervisor Relationship Specialty Start Date End Date Laila Loco APRN, IRA PCP - General 12/09/17 01/10/[address] [place] [address] documented as of this encounter
--- OUTSIDE RECORDS SUMMARY | 2022-04-11 08:06 | XMS_ITS | Encounter Summary ---
:1940 Author Organization [facility] Address [address] [place] [address] Care Team Providers Name Role Phone Laila Loco APRN, DETECTIVE SUPERVISOR Primary Care Provider Reason for Visit Reason Onset Date Comments Med refills needed 09/15/2018 Encounter Details Date Type Department Care Team Description 09/15/2018 Telephone [place] Laila Loco, Med refills needed [address] [place], [place] [address] [address] [facility] [address] [phone] [place], [place] [address] Social History Tobacco Use [...] Encounter - Laila Loco APRN, CNP - 09/15/2018 10:06 AM CDT Contacted the [...] throat. Pt would like these sent to [facility]. Please call Pt at [phone] to advise. 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
--- OUTSIDE RECORDS SUMMARY | 2022-04-11 08:06 | XMS_ITS | Encounter Summary ---
:1940 Author Organization [facility] Address [address] [place] [address] Care Team Providers Name Role Phone Laila Loco SCALE TANK OPERATOR, POLYMER TESTER Primary Care Provider [phone] Reason for Visit Reason Onset Date Comments medication 08/13/2018 Encounter Details Date Type Department Care Team Description 08/13/2018 Telephone Laila Wilson, medication [address] SCALE TANK OPERATOR, [place] [address] [address] [phone] [place], [place] [address] Social History Tobacco Use [...] after they went to a trip in [place] at the end of July. The patient did fall in [place] but she denies hitting his head. She acquired inquires about a stroke or Alzheimer's. The patient had a clarification on the tramadol the patient isonly supposed to take this as needed for his MRI and only had a prescription of 10 pills. We will wait for the MRI results and have the patient come in to review them. Telephone Encounter - Elsy Espositofrederick - 08/13/2018 10:26 AM CDT Astrid would like Rajan to call her within the next 20 min as Obey is gone and she'd like to have a conversation with her while he is not around. documented in this encounter Plan of Treatment Not on filedocumented as of this encounter Visit Diagnoses Not on filedocumented in this encounter Care Teams Union Steward Relationship Specialty Start Date End Date Laila Loco APRN, POLYMER TESTER PCP - General 12/09/17 01/10/[address] [place] [address] [place] [address] documented as of this encounter
--- OUTSIDE RECORDS SUMMARY | 2022-04-11 08:06 | XMS_ITS | Encounter Summary ---
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, unspecified vessel or lesion type, unspecified whether gakona or transplanted heart (Primary Dx); [address] MED CNP Hyperlipidemia, unspecified hyperlipidem ia type; [place], [place] [address] Gastroesophageal reflux disease without esophagitis; [address] [place], [place] Impacted cerumen of left ear ; [phone] [address] Screening for diabetes mellitus; [phone] Screening, anem ia, deficiency, iron; (Work) Screening [...] Comments Blood Pressure 132/70 06/05/2018 8:02 AM ENGINEERING TEST MECHANIC Pulse 74 06/05/2018 8:02 AM ENGINEERING TEST MECHANIC Temperature 36.8 ??C (98.2 ??F) 06/05/2018 8:02 AM ENGINEERING TEST MECHANIC Respiratory Rate 18 06/05/2018 8:02 AM ENGINEERING TEST MECHANIC Oxygen Saturation 95% 06/05/2018 8:02 AM ENGINEERING TEST MECHANIC Inhaled Oxygen Concentration - - Weight 68.9 kg (151 lb 14.4 oz) 06/05/2018 8:02 AM ENGINEERING TEST MECHANIC Height 167.6 cm (5' 6) 06/05/2018 8:02 AM ENGINEERING TEST MECHANIC Body Mass Index 24.52 06/05/2018 8:02 AM ENGINEERING TEST MECHANIC documented in this encounter Patient Instructions Patient InstructionsChrismanuel Loco APRN, CNP - 06/05/2018 8:00 AM ENGINEERING TEST MECHANIC Prolia for osteoporosis Will call with the lab results Calcium 600 mg with Vitamin D tablets, twice daily Shingrix, check with her insurance NEERING TEST MECHANIC documented in this encounter Progress Notes Laila [...] unspecified vessel or lesion type, unspecified whether gakona or transplanted heart (Primary) - metoprolol tartrate [...] plan of care. Laila Loco APRN, CNP NEERING TEST MECHANIC Rosalee Simmons MA - 06/05/2018 8:00 AM [...] rest. Dizziness passed and continued with irrigation. NEERING TEST MECHANIC documented in this encounter Plan of Treatment Not on filedocumented as of this encounter Procedures Procedure Name Priority Date/Time Associated Diagnosis Comme nts EAR CERUMEN REMOVAL Routine 06/05/2018 8:00 AM Impacted cerume n of Results for this ENGINEERING TEST MECHANIC left ear procedure are i n the results section. documented in this encounter Results (ABNORMAL) Hemoglobin A1c (06/05/2018 8:53 AM ENGINEERING TEST MECHANIC) Analysis Performed At Patho logist Time Signature Hemoglobin A1C 5.8 (H) 4.0 - 5.6 06/05/2018 OMEGA % A1C 2:32 PM [facility] [...] (Blood, 06/05/2018 8:53 AM 06/05/19 19 Venous) ENGINEERING TEST MECHANIC 12:43 PM ENGINEERING TEST MECHANIC Laila Loco APRN, COVERAGE SPECIALIST LAB BLOOD ORDERABLES Performing Organization Address City/State/ZIP Code Phon e Number [facility] [address] [place] [address] PSA (06/05/2018 8:53 AM ENGINEERING TEST MECHANIC) athologist Signature Total PSA 1.1 0.0 - 7.0 06/05/2018 [facility] ng/mL 2:05 PM [facility]ING TEST MECHANIC [facility] Comment: The results from this [...] (Blood, 06/05/2018 8:53 AM 06/05/19 19 Venous) ENGINEERING TEST MECHANIC 12:45 PM ENGINEERING TEST MECHANIC Laila Loco APRN, COVERAGE SPECIALIST LAB BLOOD ORDERABLES Performing Organization Address City/State/ZIP Code Phon e Number [facility] [address] [place] [address] (ABNORMAL) CBC Branch Off w/Diff (06/05/2018 8:53 AM ENGINEERING TEST MECHANIC) [facility] gist Method Time Signature WBC 8.7 3.5 - 10.5 06/05/2018 [facility] K/uL 9:01 AM ENGINEERING TEST MECHANIC [place] RBC 4.74 4.30 - 06/05/2018 [facility] 5.70 M/uL 9:01 AM ENGINEERING TEST MECHANIC [place] Hemoglobin 14.5 13.5 - 06/05/2018 [facility] 17.5 g/dL 9:01 AM [facility] TEST [facility]CHANIC [place] Hematocrit 43.0 38.0 - 06/05/2018 [facility] 50.0 % 9:01 AM [facility] TEST [facility] [place] Platelets 265 150 - 450 06/05/2018 [facility] K/uL 9:01 AM [facility] [place] MCV 90.7 81.2 - 06/05/2018 [facility] 95.1 fL 9:01 AM [facility] [place] MCH 30.6 26.0 - 06/05/2018 [facility] 32.0 pg 9:01 AM ENGINEERING TEST [facility]CHANIC [place] MCHC 33.7 32.0 - 06/05/2018 [facility] 36.0 g/dL 9:01 AM [facility]CH[facility] [place] RDW 13.8 11.8 - 06/05/2018 [facility] 15.6 % 9:01 AM ENGINEERING TEST [facility]CHANIC [place] Lymphocytes % 15.8 (L) 18.0 - 06/05/2018 [facility] 45.0 % 9:01 AM ENGINE[facility] TEST [facility]CHANIC [place] Mid-size Cells 8.1 3.3 - 10.1 06/05/2018 [facility] % 9:01 AM ENGINEERING TEST MECHANIC [place] Granulocytes/Urszula 76.1 (H) 45.8 - 06/05/2018 [facility] [place] trophils 73.7 % 9:01 AM ENGINEERING TEST MECHANIC [place] Lymphocytes 1.4 0.9 - 2.9 06/05/2018 [facility] [place] Absolute K/uL 9:01 AM ENGINEERING TEST MECHANIC [place] MIDS Absolute 0.7 0.2 - 0.8 06/05/2018 [facility] [place] K/uL 9:01 AM ENGINEERING TEST MECHANIC [place] Granulocytes/Urszula 6.6 2.1 - 8.7 06/05/2018 [facility] [place] trophils K/uL 9:01 AM ENGINEERING TEST MECHANIC [place] Absolute Specimen Anatomical Collection Method Collection Time Receive d Time (Source) Location / / Volume Laterality Blood (Blood, 06/05/2018 8:53 AM 06/05/19 19 9:00 Venous) ENGINEERING TEST MECHANIC AM ENGINEERING TEST MECHANIC Laila Loco APRN, COVERAGE SPECIALIST LAB BLOOD ORDERABLES Performing Organization Address City/State/ZIP Code Phon e Number [facility] [place] [address] [place] [address] (ABNORMAL) Basic metabolic panel (06/05/2018 8:53 AM ENGINEERING TEST MECHANIC) P athologist Signature Sodium 143 135 - 145 06/05/2018 [facility] [place] mmol/L 9:07 AM ENGINEERING TEST MECHANIC [place] Potassium 3.2 (L) 3.5 - 5.1 06/05/2018 [facility] [place] mmol/L 9:07 AM [facility] [place] Comment: . Chloride 101 98 - 107 mmol/L 06/05/2018 9:[address] [facility] [place] Comment: . CO2 32 (H) 22 - 31 mmol/L 06/05/2018 9:07 AM [facility] [place] Comment: . Creatinine 1.2 0.6 - 1.4 mg/dL 06/05/2018 9:07 AM [facility] [place] Comment: . BUN 14 5 - 25 mg/dL 06/05/2018 9:07 AM [facility] [place] Comment: . Glucose 107 (H) 70 - 100 mg/dL 06/05/2018 9:07 AM [facility] [place] Calcium, Total,S 9.8 8.4 - 10.2 mg/dL 06/05/2018 9:07 AM [facility] [place] Comment: . Fasting? Yes 06/05/2018 9:00 AM [facility] [place] NON [place] Specimen Anatomical Collection Method Collection Time Receive d Time (Source) Location / / Volume Laterality Blood (Blood, 06/05/2018 8:53 AM 06/05/19 19 9:00 Venous) ENGINEERING TEST MECHANIC AM ENGINEERING TEST MECHANIC Laila Loco APRN, CNP LAB BLOOD ORDERABLES Performing Organization Address City/State/ZIP Code Phon e Number [facility] [place] [address] [place] [address] (ABNORMAL) Lipid panel (06/05/2018 8:53 AM ENGINEERING TEST MECHANIC) athologist Signature Cholesterol 171 0 - 199 06/05/2018 [facility] mg/dL 1:35 PM [facility] Comment: Recommended by National Cholesterol Education Program (ATP III) -------- Cholesterol Ranges -------- <200 ? Desirable 200-239 ? Borderline high >=240 ? High Triglycerides 142 0 - 149 mg/dL 06/05/2018 1:35 PM [facility] Comment: -------- TRIG Ranges -------- <150 ?Normal 150-199 ? Borderline high 200-499 ? High >=500 ? Very high HDL 37 (A) 40 - 60 mg/dL 06/05/2018 1:35 PM [facility] Comment: -------- HDL Ranges -------- <40 ?Low 40-59 ?Normal >=60 ? Optimal LDL Calculated 106 (A) 0 - 99 mg/dL 06/05/2018 1:35 PM [facility] Comment: -------- LDL Ranges -------- <100 ? Optimal 100-129 ?Near optimal/above op timal 130-159 ?Borderline high 160-189 ?High >=190 ?Very high Specimen Anatomical Collection Method Collection Time Receive d Time (Source) Location / / Volume Laterality Blood (Blood, 06/05/2018 8:53 AM 06/05/19 19 Venous) ENGINEERING TEST MECHANIC 12:43 PM ENGINEERING TEST MECHANIC Laila Loco APRN, CNP LAB BLOOD ORDERABLES Performing Organization Address City/State/ZIP Code Phon e Number [facility] [address] [place] [address] Ear cerumen removal (06/05/2018 8:00 AM ENGINEERING TEST MECHANIC) Narrative Laila Loco APRN, CNP - 019 8:00 AM ENGINEERING TEST MECHANIC Rosalee Simmons MA ? 06/12/2018 ??6:53 AM [...] unspecified vessel or lesion type, unspecified whether gak[place] or transplant ed heart - Primary Hyperlipidemia, unspecified hyperlipidem ia type Gastroesophageal reflux disease without esophagitis Esophageal reflux Impacted cerumen of left ear Impacted cerumen Screening for diabetes mellitus Screening, anemia, deficiency, iron Screening for iron deficiency anemia Screening for prostate cancer Special screening for malignant neoplasm of prostate documented in this encounter Care Teams Emergency Room Nurse Relationship Specialty Start Date End Date Laila Loco APRN, CNP PCP - General 12/09/17 01/10/20 100 [place] [address] documented as of this encounter
--- OUTSIDE RECORDS SUMMARY | 2022-04-11 08:06 | XMS_ITS | Encounter Summary ---
:1940 Author Organization [facility] Address [address] [place] [address] Care Team Providers Name Role Phone Laila Loco MANUFACTURING APPLICATIONS ENGINEER, CULLET CRUSHER AND WASHER Primary Care Provider [phone] Reason for Visit Reason Onset Date Comments Information needed for referral 08/28/2018 Encounter Details Date Type Department Care Team Description 08/28/2018 Telephone [place] Laila Loco, Information needed for [address] [place] referral [place], [place] [address] [address] [facility] [address] [phone] [place], [place] [address] Social History Tobacco Use [...] - 08/28/2018 3:54 PM CDT Sophia with [facility] called requesting to speak with a nurse regarding the memory loss referral. She tried to speak with the Pt on the phone to verify information but between his hearing and memory loss she could not get any information. She tried utilizing Care Everywhere, but could only find info on the shoulder pain. Please call [phone] and ask for Sophia, if she is not available she will leave notes for whomever answers on what is needed. documented in this encounter Plan of Treatment Not on filedocumented as of this encounter Visit Diagnoses Not on filedocumented in this encounter Care Teams Health Actuary Relationship Specialty Start Date End Date Laila Loco APRN, CULLET CRUSHER AND WASHER PCP - General 12/09/17 01/10/[address] [place] [address] documented as of this encounter
--- OUTSIDE RECORDS SUMMARY | 2022-04-11 08:06 | XMS_ITS | Encounter Summary ---
:[address] [facility] Address [address] [place] [address] Care Team Providers Name Role Phone Laila Loco MEDIA EXECUTIVE, GRAPHIC ENGINEER Primary Care Provider [phone] Reason for Visit Reason Onset Date Comments phone call 08/17/2018 Encounter Details Date Type Department Care Team Description 08/17/2018 Telephone [place] Laila Loco, phone call [address] MEDIA EXECUTIVE, [place], [place] [address] [facility] [phone] [place], [place] [address] Social History Tobacco Use [...] on filedocumented in this encounter Care Teams System Dispatcher Relationship Specialty Start Date End Date Laila Loco APRN, GRAPHIC ENGINEER PCP - General 12/09/17 01/10/[address] [place] [address] [place] [address] documented as of this encounter
--- OUTSIDE RECORDS SUMMARY | 2022-04-11 08:06 | XMS_ITS | Encounter Summary ---
:1940 Author Organization [facility] Address [address] [place] [address] Care Team Providers Name Role Phone Laila Loco SURVEY CAD TECHNICIAN, CONNECTION WORKER Primary Care Provider [phone] Reason for Visit Reason Onset Date Comments medication prior auth. 09/16/2018 Pantoprazole Sodi um 40MG dr tablets Encounter Details Date Type Department Care Team Description 09/16/2018 Telephone [place] Laila Loco, medication prior auth. [address] [place] (Pantoprazole Sodium [place], [place] [address] tablets) [phone] [place], [place] [address] Social History Tobacco Use [...] - 09/17/2019. Pharmacy is notified. PA # [id number]. Telephone Encounter - Destiny Cody MA - 09/16/2018 8:11 AM CDT Pantoprazole Sodium 40MG dr tablets BIN: [id number] PCN: [id number] GROUP: PLAN: [employer] PHONE: [phone] ID: [id number] PA completed per [facility], sent to plan. Rizzo: [id number]. documented in this encounter Plan of Treatment Not on filedocumented as of this encounter Visit Diagnoses Not on filedocumented in this encounter Care Teams Custom Framing Specialist Relationship Specialty Start Date End Date Laila Loco APRN, CONNECTION WORKER PCP - General 12/09/17 01/10/20 100 [place] [address] documented as of this encounter
--- OUTSIDE RECORDS SUMMARY | 2022-04-11 08:06 | XMS_ITS | Encounter Summary ---
:1940 Author Organization [facility] Address [address] [place] [address] Care Team Providers Name Role Phone Laila Loco SUPERVISOR HOME RESTORATION SERVICE, FINGERPRINT TECHNICIAN Primary Care Provider [phone] Encounter Details Date Type Department Care Team Description 09/15/2018 Orders Only [place] Laila Loco, [address] SUPERVISOR HOME RESTORATION SERVICE, [place], [place] [address] [address] [facility] [address] [phone] [place], [place] [address] Social History Tobacco Use [...] on filedocumented in this encounter Care Teams Bleach Chlorinator Relationship Specialty Start Date End Date Laila Loco APRN, FINGERPRINT TECHNICIAN PCP - General 12/09/17 01/10/20 100 [facility] [place] [address] documented as of this encounter
--- OUTSIDE RECORDS SUMMARY | 2022-04-11 08:06 | XMS_ITS | Encounter Summary ---
:1940 Author Organization [facility] Address [address] [place] [address] Care Team Providers Name Role Phone Laila Loco GAME TRAPPER, PHYSICAL EDUCATION PROFESSOR Primary Care Provider [phone] Encounter Details Date Type Department Care Team Description 10/14/2018 Telephone [place] Laila Loco, [address] GAME TRAPPER, [place], [place] [address] [facility] [phone] [place], [place] [address] Social History Tobacco Use [...] seen on the schedule for 10/13/18 per [facility] protocol. Telephone Encounter - Laila Loco APRN, [place] - 10/14/2018 5:47 AM CDT Please remove my schedule from October 13, 2018. Thanks Rajan documented in this encounter Plan of Treatment Not on filedocumented as of this encounter Visit Diagnoses Not on filedocumented in this encounter Care Teams Sliver Lap Machine Tender Relationship Specialty Start Date End Date Laila Loco APRN, [place] PCP - General 12/09/17 01/10/[address] [place] [address] [place] [address] documented as of this encounter
--- OUTSIDE RECORDS SUMMARY | 2022-04-11 08:06 | XMS_ITS | Encounter Summary ---
:1940 Author Organization [facility] Address [address] [place] [address] Care Team Providers Name Role Phone Laila Loco APRN, CASE CHECKER Primary Care Provider [phone] Reason for Visit Reason Onset Date Comments Talk with Rajan Loco 08/25/2018 Encounter Details Date Type Department Care Team Description 08/25/2018 Telephone [place] Laila Loco, Talk with Rajan Loco [address] SHELLFISH HARVESTER, [place], [place] [address] [address] [facility] [address] [phone] [place], [place] [address] Social History Tobacco Use [...] Rajan's request. She can be reached at [phone]. documented in this encounter Plan of Treatment Not on filedocumented as of this encounter Visit Diagnoses Not on filedocumented in this encounter Care Teams Station Agent Relationship Specialty Start Date End Date Laila Loco APRN, CASE CHECKER PCP - General 12/09/17 01/10/[address] [place] [address] [place] [address] documented as of this encounter
--- OUTSIDE RECORDS SUMMARY | 2022-04-11 08:06 | XMS_ITS | Encounter Summary ---
:1940 Author Organization [facility] Address [address] [place] [address] Care Team Providers Name Role Phone Laila Loco LIABILITY CLAIMS ADJUSTER, BRIQUETTE MACHINE OPERATOR Primary Care Provider [phone] Reason for Visit Reason Onset Date Comments Med Refill 04/06/2018 Encounter Details Date Type Department Care Team Description 04/06/2018 Refill [place] Laila Loco, Hyperlipidemia, [address] [place] [address] [address] hyperlipidemia type [phone] [place], [place] [address] (Primary Dx) Social History Tobacco Use Types Packs/Day Years Used Date Smoking Tobacco: Never Assessed Alcohol Habits Answer Date Recorded [...] Loco APRN, CNP - 04/06/2018 12:38 PM TONGUE CARRIER The prescription was written as requested. UE CARRIER Telephone Encounter - Guillermina Bradford LPN - 04/06/2018 11:34 AM CST Ezetimibe, pending Pharmacy: [facility] UE CARRIER documented in this encounter Plan of Treatment Not on filedocumented as of this encounter Visit Diagnoses Diagnosis Hyperlipidemia, unspecified hyperlipidem ia type - Primary documented in this encounter Care Teams Applications Support Engineer Relationship Specialty Start Date End Date Laila Loco APRN, CNP PCP - General 12/09/17 01/10/20 100 [facility] [place] [address] documented as of this encounter
--- OUTSIDE RECORDS SUMMARY | 2022-04-11 08:06 | XMS_ITS | Encounter Summary ---
:1940 Author Organization [facility] Address [address] [place] [address] Care Team Providers Name Role Phone Laila Loco APRN, CNP Primary Care Provider [phone] Reason for Referral Consultation (Routine) - Closed Specialty Diagnoses / Procedures Referred By Contact Refer red To Contact Orthopedic Surgery Diagnoses Complete rotator cuff tear of left shoulder Laila Loco [facility] [place] [address] [facility] [address] [place] [address] Fax: Referral ID Status Reason Start Date Expiration Date Visits Requ ested Visits Authorized [id number] Closed 08/19/2018 08/20/2019 1 1 Scheduling Instructions The patient was started on Plavix for a non-STEMI AZ and cannot proceed with any surgical interventions as he is on Plavi x times 1 year inquiring about the possibility of a steroid injection. Reason for Visit Reason Comments Follow-up Encounter Details Date Type Department Care Team Description 08/17/2018 Office Visit Laila Wilson Follow up (Primary Dx); [address] M, [place] Atherosclerosis of ekwok coronary arter y without angina pectoris, unspecified whether ekwok or transplanted heart; YARIEL Cruz [address] Right carotid bruit; [address] [place] Complete rotator cuff tear o f left shoulder; [phone] [address] Memory deficit Social History Tobacco Use Types [...] encounter Patient Instructions Patient InstructionsLaila Loco APRN, QUALITY ASSURANCE INTERN - 08/17/2018 11:00 AM CDT Calcium 600 mg twice daily Tylenol for pain Carotid Ultrasound at [place], they will contact you to schedule Metoprolol [...] 2008, after slipping on ice in a congregation parking lot. The patientreports he wore a neck brace for a period of 3-4 months following this incident. No recent neck injury. The patient reports his neck pain is likely worsening, and notices his neck pain when he is driving, as he has to frequently reposition himself. The patient would like to be referred to Dr. Dodson at [facility] in [place], for orthopedic consultation if recommended, as he has a relationship withDr. Dodson. The patient's reports last , and Friday, 3 and 4 days ago, the patient became ill with nausea, fatigue, and generalized weakness, had taken a nitro on for chest pain, which resolved, and presented to the emergency room on Friday, August 15, 2018, with an elevated troponin. The patient was transferred from [facility] to [facility], with an acute coronary non-ST elevation myocardial infraction. The patient was admitted to [facility] on 08/15/2018, and discharged on 08/16/2018, after [...] things. The patient acknowledges before his recent AZ, he forgot to take his baby aspirin [...] DIAGNOSTICS: Reviewed the patient's MRI results from [facility] on 08/13/2018: Cervical neck MRI: 1. [...] this visit: Follow up (Primary) Atherosclerosis of ekwok coronary artery without angina pectoris, unspecified whether ekwok or transplanted heart - metoprolol succinate XL [...] he will be referred to orthopedics at [facility] in [place] for further evaluation. Will proceed with a bilateral carotid ultrasound, call with the results, and likely recommend referral to neurology to evaluated the memory concerns. The patient can take Tylenol for pain, avoiding the NSAID's. The patient will take calcium with Vitamin D twice daily. The patient and his both agree and understand this plan of care. Laila Loco APRN, QUALITY ASSURANCE INTERN documented in this encounter Plan of Treatment [...] Diagnosis Follow up - Primary Atherosclerosis of ekwok coronary arter y without angina pectoris, unspecified whether ekwok or transplanted heart Right carotid bruit Complete rotator cuff tear of left shoul moody Memory deficit Memory loss documented in this encounter Care Teams Design Engineering Specialist Relationship Specialty Start Date End Date Laila Loco APRN, QUALITY ASSURANCE INTERN PCP - General 12/09/17 01/10/20 100 [facility] [place] [address] documented as of this encounter
--- OUTSIDE RECORDS SUMMARY | 2022-04-11 08:06 | XMS_ITS | Encounter Summary ---
:[address] [facility] Address [address] [place] [address] Care Team Providers Name Role Phone Laila Loco APRN, CNP Primary Care Provider [phone] Reason for Referral Imaging (Routine) - Closed Specialty Diagnoses / Procedures Referred By Contact Refer red To Contact Radiology Diagnoses Cervical pain (neck) Laila Loco APRN, Procedures MRI Cervical Spine wo IV Contrast SQL REPORT ANALYST [address] [place] [address] Referral ID Status Reason Start Date Expiration Date Visits Requ ested Visits Authorized [id number] Closed 07/30/2018 01/26/2019 1 1 Imaging (Routine) - Closed Specialty Diagnoses / Procedures Referred By Contact Refer red To Contact Radiology Diagnoses Chronic left shoulder pain Laila Loco APRN, Procedures MRI Shoulder Left wo IV Contrast SQL REPORT ANALYST [address] [place] [address] Referral ID Status Reason Start Date Expiration Date Visits Requ ested Visits Authorized [id number] Closed 07/30/2018 01/26/2019 1 1 Reason for Visit Reason Comments Shoulder Pain Left Encounter Details Date Type Department Care Team Description 07/30/2018 Office Visit Laila Wilson Cervical pain (neck) (Primar y Dx); [address] M, CAMP NURSE, [place] Chronic left shoulder pain Margarito Love YARIEL [address] [facility] [address] [place] [address] Social History Tobacco Use Types Packs/Day Years [...] encounter Patient Instructions Patient InstructionsChsulema Loco APRN, SQL REPORT ANALYST - 07/30/2018 9:20 AM CDT Will call [...] HPI: The patient is a pleasant 78-year-old [id number] male presenting [facility] today with left shoulder discomfort which started [...] 2008, after slipping on ice in a faith parking lot. The patient reports he wore [...] positions, particularly abduction. Positive Riojas's test. X-ray hydroelectric systems technician stated he had a difficult time [...] of his left shoulder and neck through [facility] in [place]. The patient will be notified of the impressions. The patient signed a release of information to obtain a copy of his left shoulder and neck x-ray to be burned to a CD to take with him if he is referred to orthopedics, and requests to be referred to Dr. Dodson at [facility] in [place] who he has a relationship with. The [...] fra cture. IMPRESSION: Minimal osteoarthritis. Laila Loco CAMP NURSE, SQL REPORT ANALYST IMG XR PROCEDURES X-ray Cervical Spine 2-3 [...] for carotid artery disease Laila Loco APRN, SQL REPORT ANALYST IMG XR PROCEDURES documented in this encounter Visit Diagnoses Diagnosis Cervical pain (neck) - Primary Cervicalgia Chronic left shoulder pain Pain in joint, shoulder region documented in this encounter Care Teams Account Resolution Analyst Relationship Specialty Start Date End Date Laila Loco APRN, SQL REPORT ANALYST PCP - General 12/09/17 01/10/20 100 [place] [address] documented as of this encounter
--- OUTSIDE RECORDS SUMMARY | 2022-04-11 08:06 | XMS_ITS | Encounter Summary ---
:1940 Author Organization [facility] Address [address] [place] [address] Care Team Providers Name Role Phone Laila Loco ZINC PLATE CUTTER, SHOE LAY OUT PLANNER Primary Care Provider [phone] Reason for Visit Reason Onset Date Comments referral 07/31/2018 MRI shoulder, C spin e Encounter Details Date Type Department Care Team Description 07/31/2018 Telephone [place] Laila Loco, referral (MRI [address] ZINC PLATE CUTTER, SHOE LAY OUT PLANNER shoulder, C spine) [place], [place] [address] [address] [facility] [address] [phone] [place], [place] [address] Social History Tobacco Use [...] orders for Shoulder and C spine to [facility]. documented in this encounter Plan of Treatment Not on filedocumented as of this encounter Visit Diagnoses Not on filedocumented in this encounter Care Teams Steam Locomotive Firer/Fireman Relationship Specialty Start Date End Date Laila Loco APRN, SHOE LAY OUT PLANNER PCP - General 12/09/17 01/10/20 100 [facility] [place] [address] documented as of this encounter
--- OUTSIDE RECORDS SUMMARY | 2022-04-11 08:06 | XMS_ITS | Encounter Summary ---
:1940 Author Organization [facility] Address [address] [place] [address] Care Team Providers Name Role Phone Laila Loco APRN, CNP Primary Care Provider Reason for Referral Consultation (Routine) - Closed Specialty Diagnoses / Procedures Referred By Contact Refer red To Contact Neurology Diagnoses Memory deficit Laila Loco, [place] - Referrals [place] [address] [facility] [address] [place] [address] [place] [address] Fax: Referral ID Status Reason Start Date Expiration Date Visits Requ ested Visits Authorized [id number] Closed 08/28/2018 08/29/2019 1 1 Reason for Visit Reason Comments Follow-up Encounter Details Date Type Department Care Team Description 08/28/2018 Office Visit Laila Wilson Follow up (Primary Dx); [address] ED Soares CNP Memory deficit [place], [place] 100 [facility] [address] [place] [address] Social History Tobacco Use Types Packs/Day Years [...] week ago. The patient was admitted to [place] on 08/15/2018, after he had an acute [...] by Dr. [facility] in [place], and he feels there has been some [...] ogical evaluation for his memory deficit at [facility] in [place]. The patient agrees and understands this plan of care. Laila Loco APRN, CNP documented in this encounter Plan of Treatment Scheduled Referrals Name Type Priority Associated Order Schedule Diagnoses Ambulatory External Outpatient Referral Routine Memory deficit Ordered: Referral 08/28/2018 documented as of this encounter Visit Diagnoses Diagnosis Follow up - Primary Memory deficit Memory loss documented in this encounter Care Teams Insulation Cupola Charger Relationship Specialty Start Date End Date Laila Loco APRN, CNP PCP - General 12/09/17 01/10/20 100 [place] [address] documented as of this encounter
--- OUTSIDE RECORDS SUMMARY | 2022-04-11 08:06 | XMS_ITS | Encounter Summary ---
:1940 Author Organization [facility] Address [address] [place] [address] Care Team Providers Name Role Phone Laila Loco APRN, IRA Primary Care Provider [phone] Reason for Visit Reason Comments EARS PLUGGED Encounter Details Date Type Department Care Team Description 04/02/2019 Office Visit Margarito Love [place], Bilateral impacted [address] STACEY Kimble (Primary Dx) [place], [place] [address] [place], [place] [address]e. [phone] [address] [place] [address] Social History Tobacco Use Types Packs/Day Years [...] Comments Blood Pressure 132/80 04/02/2019 10:41 AM THAI MASSEUR Pulse 78 04/02/2019 10:41 AM THAI MASSEUR Temperature 35.6 ??C (96.1 ??F) 04/02/2019 10:41 AM THAI MASSEUR Respiratory Rate 16 04/02/2019 10:41 AM THAI MASSEUR Oxygen Saturation 93% 04/02/2019 10:41 AM THAI MASSEUR Inhaled Oxygen Concentration - - Weight 65.1 kg (143 lb 8.3 oz) 04/02/2019 10:41 AM THAI MASSEUR Height 168 cm (5' 6.14) 04/02/2019 10:41 AM THAI MASSEUR Body Mass Index 23.07 04/02/2019 10:41 AM THAI MASSEUR documented in this encounter Progress Notes Greer Gar PA-C - 04/02/2019 11:00 AM CST Subjective Patient ID: Obey Vines is a 79 y.o. male. Chief Complaint Patient presents with ??? EARS PLUGGED HPI Patient is a 79-year-old white male who presents at the clinic today requesting to have his ears irrigated. He wears bilateral hearing aids and was to see his radiosonde specialist a week or so ago. He [...] irrigation completed by nursing staff. Follow-up with tax map technician on a regular basis. Ears were irrigated by nursing staff for clearance. Patient had no concerns following irrigation. Will follow up on a as needed basis. MASSEUR documented in this encounter Miscellaneous Notes Assessment [...] irrigation completed by nursing staff. Follow-up with tax map technician on a regular basis. MASSEUR documented in this encounter Plan of Treatment Not on filedocumented as of this encounter Visit Diagnoses Diagnosis Bilateral impacted cerumen - Primary Impacted cerumen documented in this encounter Care Teams Zinc Plater Relationship Specialty Start Date End Date Laila Loco APRN, ORTHOPEDIC CAST SPECIALIST PCP - General 12/09/17 01/10/20 100 [place] [address] documented as of this encounter
--- OUTSIDE RECORDS SUMMARY | 2022-04-11 08:06 | XMS_ITS | Encounter Summary ---
:1940 Author Organization [facility] Address [address] [place] [address] Care Team Providers Name Role Phone Laila Loco STATISTICAL CLERK ADVERTISING, PRODUCT PICKER Primary Care Provider [phone] Reason for Visit Reason Onset Date Comments MRI 08/10/2018 Encounter Details Date Type Department Care Team Description 08/10/2018 Telephone [place] Laila Loco, MRI [address] STATISTICAL CLERK ADVERTISING, [place], [place] [address] [address] [facility] [address] [phone] [place], [place] [address] Social History Tobacco Use [...] - Laila Loco APRN, IRA - 08/13/2018 12:11 PM CDT The patient [...] call this patient. Telephone Encounter - Aliza Almaguerhl - 08/11/2018 1:30 PM CDT Patient returned a call from clinic. Telephone Encounter - Elsy Saunders - 08/11/2018 11:57 AM CDT Patient returning Rajan' call. Please try again when able. Telephone Encounter - Elsy Saunders - 08/10/2018 3:37 PM CDT Neck and shoulder MRI being done [facility]. The patient is requesting pain meds as they told him these being done at the same time and it hurts for him to lay. Patient uses [facility] in town. documented in this encounter Plan of Treatment Not on filedocumented as of this encounter Visit Diagnoses Not on filedocumented in this encounter Care Teams Consolidator Relationship Specialty Start Date End Date Laila Loco APRN, PRODUCT PICKER PCP - General 12/09/17 01/10/[address] [place] [address] [place] [address] documented as of this encounter
--- OUTSIDE RECORDS SUMMARY | 2022-04-11 08:06 | XMS_ITS | Encounter Summary ---
:1940 Author Organization [facility] Address [address] [place] [address] Care Team Providers Name Role Phone Laila Loco APRN, CNP Primary Care Provider [phone] Reason for Visit Reason Comments Ear Fullness right ear Encounter Details Date Type Department Care Team Description 10/13/2018 Office Visit [place] Laila Loco Patient left without [address], [place] W[place] being seen (Primary [place], [place] [address] Dx) [address] [place] [address] Social History Tobacco Use Types Packs/Day Years [...] he left and had to leave to grape picker his grandchildren, and will return for an ear wash later this week. documented in this encounter Plan of Treatment Not on filedocumented as of this encounter Visit Diagnoses Diagnosis Patient left without being seen - Primar y Surgical or other procedure not carried out because of patient's decision documented in this encounter Care Teams Senior Consumer Insights Consultant Relationship Specialty Start Date End Date Laila Loco APRN, INSEAM TRIMMING MACHINE OPERATOR PCP - General 12/09/17 01/10/20 100 [place] [address] documented as of this encounter
--- OUTSIDE RECORDS SUMMARY | 2022-04-11 08:07 | XMS_ITS | Clinical Summary ---
:1940 Author Organization [facility] Address [address] [place] [address] Care Team Providers Name Role Phone Elsewhere, Pcp Primary Care Provider Unavailable Source Comments Patient records contain information from all sites at [facility]. For routine questions regarding patient records, call [phone] during business hours, M-F 8:00 AM - 5:00 PM Central Time. Record requests for emergency care only can be directed to [phone] at any time.[facility] Allergies Active Allergy Reactions Severity Noted Date [...] Take 1 tablet (30 30 tablet 11 07/29/202 2 11/30/2022 Active (IMDUR) 30 mg 24 hr tablet mg total) by mouth daily. nitroglycerin (NITROSTAT) Place 1 tablet 100 tablet 1 12/01/19 Active 0.4 mg SL tablet (0.4 mg total) under the tongue every 5 (five) minutes as needed for chest pain. Active Problems Problem Noted Date Abnormal Stress Test 12/07/2021 Overview: Added automatically from request for mayte hardy [id number] Anemia Iron Deficiency Blood Loss Chronic 09/11/2020 Overview: Added automatically from request for mayte hardy [id number] Stool Positive Occult Blood 09/11/2020 Overview: Added automatically from request for mayte hardy [id number] Aftercare Total Shoulder Arthroplasty 01/25/2020 Primary Osteoarthritis Shoulder Left 12/20/2019 Overview: Added automatically from request for mayte hardy [id number] Hyperglycemia 12/14/2019 Gastroesophageal Reflux Disease Without Esophagitis Loss Hearing Bilateral 12/14/2019 Osteoporosis Without Pathological Fracture 11/27/2017 Peripheral Vascular Disease 07/02/[address] Heart Disease Of [place] Coronary Arter y Without Angina 06/25/2016 Pectoris Overview: Coronary Artery Disease (CAD) 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 01/18/2020 Immunizations Name Administration Dates Next Due Influenza [...] Health Maintenance Due Date Last Done Comments Zoster Vaccines (1 of 2) 1991 COVID-19 [...] 11/30/2021, 022, Screening 01/18/2020, Additional history exists Pneumococcal vaccine (65+ years) Completed 01/09/2018, 10/2006 Colonoscopy Discontinued 09/29/2020, 07/10/2016, 01/31/2010, Additional history exists Colorectal Cancer Surveillance Discontinued Fall Risk Screen (Annual) Completed 12/10/2021 CT Colonography Discontinued Cologuard Discontinued Medical Devices Implanted Type Area Lace Paper Machine Operator Device Shelf Model / Identifier Expiration Date Ser ial / Lot Xience Stent 3.5 X 18 - [place] [id number] Cardiac Ann Implanted: Qty: 1 on 12/19/2011 Stent Description: Device Lace Paper Machine Operator - [employer] Vascular. Device Status Text - [id number]. Stnt Synergy Venkata Rx3x16 - [id number] Cardiac N/A: [place] 06/07/2020 [id number] / Implanted: Qty: 1 on 08/15/2018 by Jacques Barraza M.D. at [facility] Stent Coronary Scientific / [id number] Description: LAD Patch Hemasheild Knitted 1x3 - Figu[place]a 6590 Mesh or Patch Getin ge Group Implanted: Qty: 1 on 08/21/1999 Description: Device Lace Paper Machine Operator - [employer]. Device Status Text - [id number]. Tencnis Iol Ocular Lens Right: Eye Ann 03/25/2021 [id number] / Implanted: Qty: 1 on 07/07/2017 by Raymundo Kinney am, M.D. at [facility] [id number] / [id number] Ocular Lens Ann 02/24/2021 [id number] / Implanted: Qty: 1 on 07/21/2017 by Raymundo Kinney am, M.D. at [facility] [id number] / Shoulder Implant-03/23/2015 Shoulder Right: Implanted: 03/23/2015 by Marv Dodson M.D. (Quantity no t on file) Implant Shoulder Shldr Lnr Trb Rvrs +0x36 - Sna - [id number] Shoulder Left: Lisa [id number] 04/03/2026 [id number] / Implanted: Qty: 1 on 01/25/2020 by Marv Roman M.D. at [facility] Implant Shoulder Biomet NA / [id number] Insurance Payer Benefit Plan Subscriber ID Effective Phone Address Typ e / Group Dates MEDICARE MEDICARE A [id number] 2006-Pres [address] [place] [address] BLUE CROSS BCBS MINTO [id number] 2016-Pres [phone] PO LIZBET X Cost Share BLUE SHIELD BLUE COST ent [phone] [place] [address] St (Home) [place] [phone] Advance Directives For more information, please contact: [phone] Documents on File Type Date Recorded Patient Reflesher Explanati on Advance Directives 12/05/2021 Neetu RodriguezmColleen HCPOA/A DVOCATE/AGENT/REP [place]on Vines RESENTATIVE /SURROGATE Latest [...] Health Care Agent Ginette Dodson Daughter First Alternate Health Care Agent Jesus Flom Son First [facility] Health Care Agent Care Teams Ship Design Teacher Relationship Specialty Start Date End Date Elsewhere, Pcp PCP - General Internal Medicine 12/10/21
--- OUTSIDE RECORDS SUMMARY | 2022-04-11 08:08 | XMS_ITS | Encounter Summary ---
:1940 Author Organization [facility] Address [address] [place] [address] Care Team Providers Name Role Phone Silver Givens M.D., Ph.D. Primary Care Provider [phone] Encounter Details Date Type Department Care Team Description 12/07/2021 Abstract [facility] Provider, Historical Social History Tobacco Use [...] documented as of this encounter Care Teams Reinforcing Bar Setter Relationship Specialty Start Date End Date Silver Givens M.D., Ph.D. PCP - General Family Medicine 11/10/19 12/09/[address] [id number] documented as of this encounter
--- OUTSIDE RECORDS SUMMARY | 2022-04-11 08:08 | XMS_ITS | Encounter Summary ---
:1940 Author Organization [facility] Address [address] [place] [address] Care Team Providers Name Role Phone Elsewhere, Pcp Primary Care Provider Unavailable Reason for Referral Outpatient (Routine) - Closed Specialty Diagnoses / Procedures Referred By Contact Refer red To Contact Diagnoses Pain Chest Atherosclerotic Heart Disease [place] Coronary Artery Without Angina Pectoris Nic Mitchell P.A.-C., [facility] Procedures Echo Stress M.S. [address] [place] [address] Referral ID Status Reason Start Date Expiration Date Visits Requ ested Visits Authorized [id number] Closed 12/03/2021 12/03/2022 1 1 Outpatient (Routine) - Closed Specialty Diagnoses / Procedures Referred By Contact Refer red To Contact Cardiovascular Disease Nic Mitchell [facility] Laura M.SLara [address] [place] [address] Referral ID Status Reason Start Date Expiration Date Visits Requ ested Visits Authorized [id number] Closed 12/03/2021 12/03/2022 1 1 Encounter Details Date Type Department Care Team Description 12/03/2021 Orders Only Department of Nic Mitchell Pain Chest ( Primary Dx); Cardiovascular Medicine Laura Patel Athe roscfabiotic Heart Disease Of [place] Coronary Artery Without Angina Pectoris in [facility] M.S. [address] [place] [address] [phone] Social History Tobacco Use Types Packs/Day Years [...] DOPPLER AND CONTRAST (12/05/2021 1:49 PM CDT) [facility] gist Method Time Signature Ejection [...] Echocardiography Contrast Administration P rotocol Reference Document [id number]. P atient met an inclusion criterion and [...] per Echocardiography Contrast Administration Protocol Reference Document [id number]. Patient met an inclusion criterion and did not have contraindications in screening sections. For the complete report, see the Order-L evel Documents. Nic Mitchell P.A.-C., M.S. CV ECHO PROCEDURES documented in this encounter Visit Diagnoses Diagnosis Pain Chest - Primary Atherosclerotic [facility] Disease [facility] [place] Coronary Artery Without Angina Pectoris Pain Chest Atherosclerotic Heart Disease [facility] [place] Coronary Artery Without Angina Pectoris documented in this encounter Additional Health Concerns Infection Onset Date Last Indicated Resolved Time COVID19 Pending 12/04/2021 12/04/2021 12/04/2021 3:27 PM CDT COVID19 Pending 12/07/2021 12/07/2021 12/07/2021 4:30 PM CDT Assessment Noted Time PHQ-9 Depression Total Score: 2 03/08/2015 11:16 AM CS T documented as of this encounter Care Teams Manager Registration Relationship Specialty Start Date End Date Elsewhere, Pcp PCP - General Internal Medicine 12/10/21 documented as of this encounter
--- OUTSIDE RECORDS SUMMARY | 2022-04-11 08:08 | XMS_ITS | Encounter Summary ---
:1940 Author Organization [facility] Address [address] [place] [address] Care Team Providers Name Role Phone Silver Givens M.D., Ph.D. Primary Care Provider [phone] Reason for Visit Outpatient (Routine) - Closed Specialty Diagnoses / Procedures Referred By Contact Refer red To Contact Diagnoses Pain Shoulder Left Marv Dodson M.D. [facility] Region Procedures DX Shoulder Left 2+ Views DX Shoulder Right 2+ Views [address] [place] [phone] Referral ID Status Reason Start Date Expiration Date Visits Requ ested Visits Authorized [id number] Closed 08/20/2021 08/20/2022 1 1 Encounter Details Date Type Department Care Team Description 08/20/2021 Hospital Encounter Department of Marcus Dodson Fifi ulmoody Left Radiology in Fabricio Fair M.D. [place], [place] [address] [place] [phone] Social History Tobacco Use Types Packs/Day Years [...] documented as of this encounter Care Teams Chairman & Chief Executive Officer Relationship Specialty Start Date End Date Silver Givens M.D., Ph.D. PCP - General Family Medicine 11/10/19 12/09/[address] [place] [phone] documented as of this encounter
--- OUTSIDE RECORDS SUMMARY | 2022-04-11 08:08 | XMS_ITS | Encounter Summary ---
:1940 Author Organization [facility] Address [address] [place] [address] Care Team Providers Name Role Phone Silver Givens M.D., Ph.D. Primary Care Provider [phone] Encounter Details Date Type Department Care Team Description 12/07/2021 Lab Department of Laboratory Darvin Corral, Screening Examination For Viral Disease; Medicine and Pathology, MMarry Contact With And (Suspected) Exposure To COVID-19 [facility], in [address] [place] [address] [place] [phone] [place] [address] [phone] Social History Tobacco Use Types Packs/Day Years [...] PCR, Varies Asymptomatic (12/07/2021 11:30 AM CDT) [facility] Method Time Signature SARS CoV-2 Swab, [...] Drug Administration an d is used per water plant pump operator's instructions. Performance characteristics were verified by [facility] in a manner consistent with CLIA requirements. Visit the CDC website: https://www.cdc.g ov/coronavirus/ for the most recent guidelines on Coron avirus testing. Fact Sheet for Healthcare Providers: https://www.fda.gov/media/155292/downloa d Fact Sheet for Patients: https://www.fda.gov/media/246141/downloa d Specimen Anatomical Collection Method Collection Time Receive d Time (Source) Location / / Volume Laterality Varies 12/07/2021 11:30 12/07/2021 (Nasopharynx) AM CDT 12:27 PM CDT Darvin Corral M.D. LAB MICROBIOLOGY - GENERAL O KIMI Performing Organization Address City/State/ZIP Code Phon e Number [facility] - [address] [place], [place] [address] [place] [address] [facility] [address] documented in this encounter [...] documented as of this encounter Care Teams Auto Service Writer Relationship Specialty Start Date End Date Silver Givens M.D., Ph.D. PCP - General Family Medicine 11/10/19 12/09/[address] [place] [phone] documented as of this encounter
--- OUTSIDE RECORDS SUMMARY | 2022-04-11 08:08 | XMS_ITS | Encounter Summary ---
:1940 Author Organization [facility] Address [address] [place] [address] Care Team Providers Name Role Phone Silver Givens M.D., Ph.D. Primary Care Provider Reason for Visit Reason Comments Pain History left reverse total s houlder 01/25/20 Encounter Details Date Type Department Care Team Description 08/20/2021 Office Visit Department of Marv Dodson Pain Shou lder Left Orthopedic Surgery in .D. (Primary Dx) [address] [phone] Social History Tobacco Use Types Packs/Day Years [...] documented as of this encounter Care Teams Heavy Duty Press Operator Relationship Specialty Start Date End Date Silver Givens M.D., Ph.D. PCP - General Family Medicine 11/10/19 12/09/[address] [phone] documented as of this encounter
--- OUTSIDE RECORDS SUMMARY | 2022-04-11 08:08 | XMS_ITS | Encounter Summary ---
:1940 Author Organization [facility] Address [address] [place] [address] Care Team Providers Name Role Phone Silver Givens M.D., Ph.D. Primary Care Provider [phone] Encounter Details Date Type Department Care Team Description 11/30/2021 [facility] Laila Loco Pain Chest (Primary AND CLINICS M, C.N.P. Dx) [address] [facility] [address] [place] [address] [phone] Social History Tobacco Use Types Packs/Day Years [...] as of this encounter Care Teams Manager Employment Relationship Specialty Start Date End Date Silver Givens M.D., Ph.D. PCP - General Family Medicine 11/10/19 12/09/[address] [place] [phone] documented as of this encounter
--- OUTSIDE RECORDS SUMMARY | 2022-04-11 08:08 | XMS_ITS | Encounter Summary ---
:1940 Author Organization [facility] Address [address] [place] [address] Care Team Providers Name Role Phone Elsewhere, Pcp Primary Care Provider Unavailable Encounter Details Date Type Department Care Team Description 12/10/2021 Surgery Division of Cardiovascular Angella Costello oronary Angiography Diseases in Matty Yung M .D. [place] [address] [facility] [address] [place] [address] [phone] Social History Tobacco Use Types Packs/Day Years [...] through Care Everywhere.Care Following Your Catheter Procedure (Lao)documented in this encounter Medications at Time [...] instructions were reviewed in detail as per [id number] with patient and family. They verbalized understanding. [...] in Atherosclerotic the results Heart Disease section. 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
--- OUTSIDE RECORDS SUMMARY | 2022-04-11 08:08 | XMS_ITS | Encounter Summary ---
:1940 Author Organization [facility] Address [address] [place] [address] Care Team Providers Name Role Phone Silver Givens M.D., Ph.D. Primary Care Provider [phone] Reason for Referral Specialty Diagnoses / Procedures Referred By Contact Refer red To Contact Silver Givens M.D., Ph.D. [address] [phone] Referral ID Status Reason Start Date Expiration Date Visits Requ ested Visits Authorized Encounter Details Date Type Department Care Team Description 09/18/2021 Orders Only [facility] Jasmyn Givens M.D., Ph.D. [address] [place] [phone] (Wo rk) Social History Tobacco Use [...] documented as of this encounter Care Teams Supplier Quality Specialist Relationship Specialty Start Date End Date Silver Givens M.D., Ph.D. PCP - General Family Medicine 11/10/19 12/09/[address] [place] [phone] documented as of this encounter
--- OUTSIDE RECORDS SUMMARY | 2022-04-11 08:08 | XMS_ITS | Encounter Summary ---
:1940 Author Organization [facility] Address [address] [place] [address] Care Team Providers Name Role Phone Silver Givens M.D., Ph.D. Primary Care Provider [phone] Encounter Details Date Type Department Care Team [...] documented as of this encounter Care Teams Route Vending Machine Servicer Relationship Specialty Start Date End Date Silver Givens M.D., Ph.D. PCP - General Family Medicine 11/10/19 12/09/[address] [place] [phone] documented as of this encounter
--- OUTSIDE RECORDS SUMMARY | 2022-04-11 08:08 | XMS_ITS | Encounter Summary ---
:1940 Author Organization [facility] Address [address] [place] [address] Care Team Providers Name Role Phone Silver Givens M.D., Ph.D. Primary Care Provider Reason for Referral Outpatient (Routine) - Authorized Specialty Diagnoses / Procedures Referred By Contact Refer red To Contact Emergency Medicine Diagnoses Epistaxis Isidro Pham, [facility] ED, C.N.P. [address] [place] [address] Referral ID Status Reason Start Date Expiration Date Visits V isits Requested Authorized [id number] Authorized 08/15/2021 08/15/2022 1 1 Reason for Visit Reason Comments Fall Fall on Friday presents now with a nose bleed. Encounter Details Date Type Department Care Team Description 08/15/2021 Emergency [facility] Basil, Trever Larios PLaraALuis Carlos [address] [place] [phone] Epistaxis (Primary Dx); Department Isidro Pham APRN, C.N.P. [address] [place] [address] History Of Falling; [address] [place] [address] BLVD Injury Head Initial ROSALIA CLARK, YARIEL [...] Try applying pressure for least 15 minutes, pick up truck driver some Afrin and do 2 sprays into the nostril. If he continued to bleed after that please return to the ER. AttachmentsThe following attachments cannot be sent through Care Everywhere. Nosebleed Adult (Finnish)documented in this encounter Medications at Time [...] PM CDT Care of patient transferred to ms by Joshua Gracia PA-C. Disposition pending lab [...] Neuroradiology ARZ LOS, N/A Computed Tomography Neuroradiology [facility] Specimen (Source) Anatomical Collection Method Collection [...] CDT eGFR-Black/Afri 67 >=60 08/15/2021 CNFL can Filipino mL/min/BSA 7:21 PM CDT Comment: ----ADDITIONAL INFORMATION---- Estimated GFR calculated using the 2009 CKD_EPI creatinine equation. eGFR Non-Black/ 58 (L) >=60 mL/min/BSA 08/15/2021 7:21 PM CDT CNFL Filipino Comment: ----ADDITIONAL INFORMATION---- Estimated GFR calculated using [...] P.A.-C. LAB BLOOD ADD-ON Performing Organization Address City/State/[facility] Code Phon e Number [facility]- [address] [place] [id number] [place] [address] [place] [address] System [address] Prothrombin Time (PT) (08/15/2021 6:05 PM [...] Address City/State/ZIP Code Phon e Number [facility]- [address] [place] [address] [place] [address] [address] (ABNORMAL) CBC with Differential, Blood (08/15/2021 6:05 PM CDT) [facility] Method Time Signature Hemoglobin 13.4 13.2 [...] Address City/State/ZIP Code Phon e Number [facility]- [address] [place] [address] [place] [address] [place] [address] [address] documented in this encounter Visit Diagnoses [...] documented as of this encounter Care Teams Cafeteria Worker Relationship Specialty Start Date End Date Silver Givens M.D., Ph.D. PCP - General Family Medicine 11/10/19 12/09/[address] [place] [phone] documented as of this encounter
--- OUTSIDE RECORDS SUMMARY | 2022-04-11 08:08 | XMS_ITS | Encounter Summary ---
:1940 Author Organization [facility] Address [address] [place] [address] Care Team Providers Name Role Phone Silver Givens M.D., Ph.D. Primary Care Provider [phone] Reason for Visit Reason Comments Abdominal Pain Chest Pain Encounter Details Date Type Department Care Team Description 11/30/2021 Emergency [facility] Hospital Hamzah Hernández M, Abd ominal Pain (Primary Dx); Emergency Department Marisela, M.B.A. Coronary Artery Disease With Stable Olivia na ([facility]) [address] [facility] [address] [place] [phone] (Wo rk) Social History Tobacco Use Types [...] through Care Everywhere. Coronary Artery Disease Male (Cook Islander)documented in this encounter Medications at Time of [...] 17 daily. documented as of this encounter Consult Notes Nic Mitchell P.A.-C., M.S. - 11/30/2021 3:33 PM CDT CARDIOLOGY CONSULT NOTE Cardiology Collaborating Brattice Builder: Dr. 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 CATH ANGIOGRAM N/A 08/15/2018 Procedure: Coronary Angiography; Surgeon: Jacques Barraza M.D.; Location: [facility] CATH INTERVENTION N/A 08/15/2018 Procedure: Stent Placement; Surgeon: Jacques Barraza M.D.; Location: [facility] CATH PTCA N/A 08/15/2018 Procedure: Percutaneous Coronary Angioplasty; Surgeon: Jacques Barraza M.D.; Location: [facility] COLONOSCOPY N/A 09/29/2020 Procedure: COLONOSCOPY-P; Surgeon: Wood Car M.D.; Location: [facility] GI LAB CORONARY ANGIOPLASTY WITH STENT PLACEMENT N/A 12/19/2011 >1. Percutaneous coronary intervention with drug-eluting stent following a lytics for STEMI (lytics DECOMPRESSION OF MEDIAN NERVE N/A 10/17/2006 Carpal tunnel release ESOPHAGOGASTRODUODENOSCOPY N/A 09/29/2020 Procedure: ESOPHAGOGASTRODUODENOSCOPY; Surgeon: Wood Car M.D.; Location: [facility] GI LAB EXTRACTION CATARACT WITH INSERTION INTRAOCULAR LENS Right 07/07/2017 Procedure: EXTRACTION CATARACT WITH INSERTION INTRAOCULAR LENS; Surgeon: Raymundo Muniz M.D.; Location: [facility] OR EXTRACTION CATARACT WITH INSERTION INTRAOCULAR LENS Left 07/21/2017 Procedure: EXTRACTION CATARACT WITH INSERTION INTRAOCULAR LENS; Surgeon: Raymundo Muniz M.D.; Location: [facility] OR MOHS SURGERY N/A 06/23/2006 [...] male with a history of CAD prior [place], s/p stenting Please see HPI for further [...] chest pain for the past month. Thepatient's TREE PULLER from [place] with the [facility] suggested that patient be seen based on [...] performed and their clinic outside of the [place] system earlier today, however. The patient has [...] in MDM. Case reviewed with other health child care nurse, including Cardiology. ED Course as of 11/30/212023Nov [...] 2H/6H, 5th Gen (11/30/2021 4:30 PM CDT) [facility] gist Method Time Signature Troponin T, 2 12 [...] 22 4:33 Venous) CDT PM CDT Narrative [facility] - 11/30/2021 4:56 PM CDT Specimen Information: Specimen ID: [id number] Specimen Type: Blood Specimen Collection Start Date: 12/01/19 ??4:30 PM Specimen Received Date: 11/30/2021 ??4:3 3 PM Specimen ID: [id number] Specimen Type: Blood Specimen Collection Start Date: 12/01/19 ??4:56 PM Specimen Received Date: 11/30/2021 ??4:5 6 PM Hamzah Hernández M.D., M.B.A. LAB BLOOD TROPONIN Performing Organization Address City/State/ZIP Code Phon e Number [facility] - 200 [place], [place] [address] [place] [address] [facility] 200 [facility] DX Chest AP or PA and Lateral [...] Signature Troponin T, 12 <=15 ng/L 11/30/2021 [facility] Baseline, 5th 3:06 PM CDT gen Specimen Anatomical Collection Method Collection Time Receive d Time (Source) Location / / Volume Laterality Blood (Blood, 11/30/2021 2:38 PM 12/01/19 22 2:44 Venous) CDT PM CDT Hamzah Hernández M.D., M.B.A. LAB BLOOD TROPONIN Performing Organization Address City/State/ZIP Code Phon e Number [facility] - 200 [place], [place] [address] [place] [address] [facility] 200 [facility] Prothrombin Time (PT) (11/30/2021 2:38 PM CDT) athologist Signature Prothrombin 12.5 9.4 - 12.5 11/30/2021 [facility] Time, P sec 2:53 PM CDT INR 1.1 0.9 - 1.1 11/30/2021 [facility] 2:53 PM CDT Comment: ----ADDITIONAL INFORMATION---- Standard [...] City/State/ZIP Code Phon e Number [facility] - [address] [place] [address] [place] [address] [facility] 200 [facility] NT-Pro B-Type Natriuretic Peptide (BNP) (11/30/2021 2:38 PM CDT) [facility]-Pro BNP 227 <=540 pg/mL 11/30/2021 NEW [...] M.B.A. LAB BLOOD ADD-ON Performing Organization Address City/[facility] Phon e Number [facility] - 200 [place], [place] [address] [facility] [place] [address] Lipase (11/30/2021 2:38 PM CDT) P athologist Signature Lipase, S 32 13 - 60 U/L 11/30/2021 3:38 DTL PM CDT Specimen Anatomical Collection Method Collection Time Receive d Time (Source) Location / / Volume Laterality Blood (Blood, 11/30/2021 2:38 PM 12/01/19 3:09 Venous) CDT PM CDT Hamzah Hernández M.D., M.B.A. LAB BLOOD ADD-ON Performing Organization Address City/[facility] Phon e Number [facility] - 200 [place] [address] [facility] [place] [address] (ABNORMAL) Hepatic Function Panel (11/30/2021 2:38 [...] City/State/ZIP Code Phon e Number [facility] - 200 [place], [place] [address] [facility] [place] [address] [facility] [address] [facility] (ABNORMAL) CBC with Differential, Blood (11/30/2021 2:38 PM CDT) [facility] Method Time Signature Hemoglobin 13.1 (L) 13.2 [...] City/State/ZIP Code Phon e Number [facility] - 200 [place], [place] [address] [facility] [place] [address] [facility] 200 [facility] Basic Metabolic Panel (11/30/2021 2:38 PM CDT) [...] CDT eGFR-Black/Afric 71 >=60 11/30/2021 [facility] an Montenegrin mL/min/BSA 3:02 PM CDT Comment: ----ADDITIONAL INFORMATION---- [...] City/State/ZIP Code Phon e Number [facility] - 200 [place], [place] [address] [facility] [place] [address] [facility] 200 [facility] ECG 12 Lead (11/30/2021 2:09 PM CDT) P athologist Signature Ventricular Rate 54 BPM MUSE ECG/Min [place] Interval 178 ms MUSE QRSD Interval 84 ms MUSE QT Interval 444 ms MUSE QTC Interval 421 ms MUSE P [place] 54 degrees MUSE R [place] 2 degrees MUSE T Wave [place] 30 degrees MUSE Specimen Anatomical Collection Method [...] documented as of this encounter Care Teams Psych Assistant Relationship Specialty Start Date End Date Silver Givens M.D., Ph.D. PCP - General Family Medicine 11/10/19 12/09/[address] [phone] documented as of this encounter
--- OUTSIDE RECORDS SUMMARY | 2022-04-11 08:08 | XMS_ITS | Encounter Summary ---
:1940 Author Organization [facility] Address [address] [place] [address] Care Team Providers Name Role Phone Elsewhere, Pcp Primary Care Provider Unavailable Encounter Details Date Type Department Care Team Description 12/10/2021 Hospital Division of Angella Costello Abnormal Stress Test; Encounter Cardiovascular Giulia Starr. Atherosclerotic Heart Disease [place] 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) (HCC); Diseases in [place], [facility] [address] [facility] Stress Test [facility] [address] [place] [phone] Social History Tobacco Use Types Packs/Day Years [...] through Care Everywhere.Care Following Your Catheter Procedure ([place])documented in this encounter Medications at Time of [...] instructions were reviewed in detail as per [id number] with patient and family. They verbalized understanding. [...] in Atherosclerotic the results Heart Disease section. 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 PROCEDURE TYPES 1. ??CORONARY ANGIOGRAPHY FINAL DIAGNOSIS 1. ??Mild coronary artery atherosclerosi s PRE-PROCEDURE DIAGNOSIS 1. ??Abnormal Stress Test 2. 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) ([facility]) CORONARY DIAGNOSTIC SUMMARY Coronary artery dominance is [...] Diagnosis Abnormal Stress Test Atherosclerotic Heart Disease [place] 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) (HCC) Atherosclerotic Heart Disease Of [place] Coronary Artery Without Angina Pectoris Abnormal Stress Test Atherosclerotic Heart Disease [place] 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) (HCC) documented in this encounter Admitting Diagnoses Diagnosis Atherosclerotic Heart Disease Of [place] Coronary Artery Without Angina Pectoris Abnormal Stress [...] documented as of this encounter Care Teams Marketing Business Analyst Relationship Specialty Start Date End Date Elsewhere, Pcp PCP - General Internal Medicine 12/10/21 documented as of this encounter
--- OUTSIDE RECORDS SUMMARY | 2022-04-11 08:08 | XMS_ITS | Encounter Summary ---
:1940 Author Organization [facility] Address [address] [place] [address] Care Team Providers Name Role Phone Silver Givens M.D., Ph.D. Primary Care Provider [phone] Reason for Visit Outpatient (Routine) - Closed Specialty Diagnoses / Procedures Referred By Contact Refer red To Contact Cardiovascular Disease Nic Mitchell, [facility] Fariba P.Jorge., M.S. [address] [place] [address] Referral ID Status Reason Start Date Expiration Date Visits Requ ested Visits Authorized [id number] Closed 12/03/2021 12/03/2022 1 1 Encounter Details Date Type Department Care Team Description 12/07/2021 Office Visit Department of Darvin Corral Abnormal St ress Test (Primary Dx); Cardiovascular Medicine Marisela Gallardo Atherosclerotic Heart Disease [place] 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) ([facility]) in [facility] bhavna [address] [facility] [address] [place] [phone] [phone] Social History Tobacco Use Types Packs/Day Years [...] Stress Test - Primary Atherosclerotic Heart Disease [place] 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) (HCC) documented in this encounter Additional Health Concerns Infection Onset Date Last Indicated Resolved Time COVID19 Pending 12/07/2021 12/07/2021 12/07/2021 4:30 PM CDT Assessment Noted Time PHQ-9 Depression Total Score: 2 03/08/2015 11:16 AM CS T documented as of this encounter Care Teams Roll Off Driver Relationship Specialty Start Date End Date Silver Givens M.D., Ph.D. PCP - General Family Medicine 11/10/19 12/09/[id number] [place] [phone] documented as of this encounter
--- OUTSIDE RECORDS SUMMARY | 2022-04-11 08:08 | XMS_ITS | Encounter Summary ---
:1940 Author Organization [facility] Address [address] [place] [address] Care Team Providers Name Role Phone Silver Givens M.D., Ph.D. Primary Care Provider [phone] Encounter Details Date Type Department Care Team Description 09/29/2020 Surgery Department of Gastroenterology Wood Uribe M.D. COLONOSCOPY-P in [facility] [address] [facility] [address] [place] [phone] (Wo rk) Social History Tobacco Use Types [...] CDTAssociated Order(s): UPPER GI ENDOSCOPY [facility] Patient Name: Obey Vines Procedure Date: [...] 10:10 AM CDTAssociated Order(s): COLONOSCOPY [facility] Patient Name: Obey Vines Procedure Date: [...] bowel preparation was evaluated using the BBPS ([place] Bowel Preparation Scale) with scores of: Right [...] Component Value Ref Test Analysis Performed At [facility] Method Time Signature 10/04/2020 ECLR [...] Organization Address City/State/ZIP Code Phon e Number [facility]- [address] [place] [address] [phone] [facility] [place] [address] UPPER GI ENDOSCOPY (09/29/2020 10:14 AM CDT) Specimen (Source) Anatomical Location Collection Method / Collectio n Time Received Time / Laterality Volume Narrative This result has an attachment that is no t available. Procedure Note Wood Car M.D. - 09/29/2020 10:14 AM CDT [facility] Patient Name: Obey Vines Procedure Date: [...] Car M.D. - 09/29/2020 10:10 AM CDT [facility] Patient Name: Obey Vines Procedure Date: [...] preparation was ev aluated using the BBPS ([place] Bowel Preparation Scal e) with scores of: [...] documented as of this encounter Care Teams Team Truck Driver Relationship Specialty Start Date End Date Silver Givens M.D., Ph.D. PCP - General Family Medicine 11/10/19 12/09/[address] [place] [phone] documented as of this encounter
--- OUTSIDE RECORDS SUMMARY | 2022-04-11 08:08 | XMS_ITS | Encounter Summary ---
:1940 Author Organization [facility] Address [address] [place] [address] Care Team Providers Name Role Phone Silver Givens M.D., Ph.D. Primary Care Provider [phone] Reason for Visit Reason Comments Triage Encounter Details Date Type Department Care Team Description 12/03/2021 Clinical Communication Department of Cable Installer, [facility] Cardiovascular Medicine Marisela Kwon in [facility] bhavna [address] [place] [address] Social History Tobacco Use Types Packs/Day [...] an Echo Stress and consult with a Cable Installer per patient's ED visit. Pleasereview and advise [...] documented as of this encounter Care Teams Customer Service Supervisor Relationship Specialty Start Date End Date Silver Givens M.D., Ph.D. PCP - General Family Medicine 11/10/19 12/09/[phone] [place] [phone] documented as of this encounter
--- OUTSIDE RECORDS SUMMARY | 2022-04-11 08:08 | XMS_ITS | Encounter Summary ---
:1940 Author Organization [facility] Address [address] [place] [address] Care Team Providers Name Role Phone Silver Givens M.D., Ph.D. Primary Care Provider [phone] Encounter Details Date Type Department Care Team Description 09/29/2020 Anesthesia Event Department of Vernon Santa APRN, LOCKSMITH HELPER [address] [place] [address] Gastroenterology in [facility] Christa Burt M.D. [address] [place] [address] [phone] Anesthesia Record Procedure Summary Procedure Name Responsible Anesthesiologist Anesthesia Start Ti me Anesthesia Stop Time COLONOSCOPY-P Yordy Santa APRN, 09/29/20 1025 [address] LOCKSMITH HELPER Events Date Time Event Comment 09/29/2020 1022 [...] Shoulder; 01/25/20 1403 by [id number] by Left; aquacel, sling; Brandi Millard, [facility] in-[place] 01/23/21 (Removed by Liu Presley background completion [...] Procedure Summary Date: 09/29/20 Room / Location: [address] 1412 / [facility] - [place] Anesthesia Start: 1025 Anesthesia Stop: [...] [D50.0] Stool Positive Occult Blood [R19.5] Location: [facility] 1411 / [facility] - [place] Providers: Wood Car M.D. Pertinent components of the patient's history including current problem list, medical history, surgical history, family history, social history, medications and allergies were reviewed. Present illnessand pre-op diagnosis were confirmed. The planned surgery / procedure was verified with the patient /legal guardian. The patient's general health condition remains unchanged RELEVANT COMORBID CONDITIONS CV (+) Atherosclerotic Heart Disease Of [place] Coronary Artery Without Angina Pectoris (+) Peripheral [...] with patient /legal guardian or through an office assistance. The use of blood products not discussed [...] documented as of this encounter Care Teams Profiling Machine Set Up Operator Relationship Specialty Start Date End Date Silver Givens M.D., Ph.D. PCP - General Family Medicine 11/10/19 12/09/[address] [phone] documented as of this encounter
--- OUTSIDE RECORDS SUMMARY | 2022-04-11 08:08 | XMS_ITS | Encounter Summary ---
:1940 Author Organization [facility] Address [address] [place] [address] Care Team Providers Name Role Phone Silver Givens M.D., Ph.D. Primary Care Provider [phone] Encounter Details Date Type Department Care Team Description 09/18/2021 Clinical Department of Fabien Gillette, Communication Otorhinolaryngology in [address] [place] [phone] [place], [place] [phone] Social History Tobacco Use Types Packs/Day [...] attempt: Left message Telephone Encounter - Golden Arce, L.P.N. - 09/18/2021 3:13 PM CDT Please [...] as of this encounter Care Teams Construction Scheduler Relationship Specialty Start Date End Date Sivler Givens M.D., Ph.D. PCP - General Family Medicine 11/10/19 12/09/[address] [place] [phone] documented as of this encounter
--- OUTSIDE RECORDS SUMMARY | 2022-04-11 08:08 | XMS_ITS | Encounter Summary ---
:1940 Author Organization [facility] Address [address] [place] [address] Care Team Providers Name Role Phone Silver Givens M.D., Ph.D. Primary Care Provider [phone] Encounter Details Date Type Department Care Team Description 01/29/2021 Orders Only [facility] Sa lindy Kirkland M.D. [address] [place], [place] [phone] (Wo rk) Social History [...] as of this encounter Care Teams Construction Mgr Relationship Specialty Start Date End Date Silver Givens M.D., Ph.D. PCP - General Family Medicine 11/10/19 12/09/[address] [place] [phone] documented as of this encounter
--- OUTSIDE RECORDS SUMMARY | 2022-04-11 08:08 | XMS_ITS | Encounter Summary ---
:1940 Author Organization [facility] Address [address] [place] [address] Care Team Providers Name Role Phone Silver Givens M.D., Ph.D. Primary Care Provider [phone] Encounter Details Date Type Department Care Team [...] documented as of this encounter Care Teams Mixer Operator Raw Salt Relationship Specialty Start Date End Date Silver Givens M.D., Ph.D. PCP - General Family Medicine 11/10/19 12/09/[address] [place] [phone] documented as of this encounter
--- OUTSIDE RECORDS SUMMARY | 2022-04-11 08:08 | XMS_ITS | Encounter Summary ---
:1940 Author Organization [facility] Address [address] [place] [address] Care Team Providers Name Role Phone Silver Givens M.D., Ph.D. 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 [address] [place] [address] Referral ID Status Reason Start Date Expiration Date Visits Requ ested Visits Authorized [id number] Closed 12/03/2021 12/03/2022 1 1 Encounter Details Date Type Department Care Team Description 12/05/2021 Hospital Department of [place], Pain Chest; Encounter Cardiovascular Nic RRyan ic Heart Disease Of [place] Coronary Artery Without Angina Pectoris Diseases in [place], PCali, M.S. [place] [address] [place] [address] [phone] Social History Tobacco Use Types Packs/Day Years [...] AND Heart Disease Of the results CONTRAST [place] Coronary section. Artery Without Angina Pectoris documented in this encounter Results ECHO STRESS 2D WITH COLOR, LIMITED DOPPLER AND CONTRAST (12/05/2021 1:49 PM CDT) [facility] Method Time Signature Ejection Fraction 60 [...] Echocardiography Contrast Administration P rotocol Reference Document [id number]. P atient met an inclusion criterion and [...] per Echocardiography Contrast Administration Protocol Reference Document [id number]. Patient met an inclusion criterion and did not have contraindications in screening sections. For the complete report, see the [employer] Documents. Nic Mitchell P.A.-C. M.S. 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 PCP - General Family Medicine 11/10/19 12/09/[address] [place] [phone] documented as of this encounter
--- OUTSIDE RECORDS SUMMARY | 2022-04-11 08:09 | XMS_ITS | Encounter Summary ---
:[address] [facility] Address [address] [place] [address] Care Team Providers Name Role Phone Silver Givens M.D., Ph.D. Primary Care Provider [phone] Encounter Details Date Type Department Care Team Description 06/19/2020 Orders Only [facility] Sa lindy Kirkland M.D. [address] [place], [place] [phone] (Wo rk) Social History [...] as of this encounter Care Teams Fire Prevention Chief Relationship Specialty Start Date End Date Silver Givens M.D., Ph.D. PCP - General Family Medicine 11/10/19 12/09/[address] [place] [phone] documented as of this encounter
--- OUTSIDE RECORDS SUMMARY | 2022-04-11 08:09 | XMS_ITS | Encounter Summary ---
:1940 Author Organization [facility] Address [address] [place] [address] Care Team Providers Name Role Phone Silver Givens M.D., Ph.D. Primary Care Provider [phone] Reason for Visit Outpatient (Routine) - Closed Specialty Diagnoses / Procedures Referred By Contact Refer red To Contact General Surgery Diagnoses Primary Osteoarthritis Shoulder Left Marv Dodson [facility] Fariba Antonio [address] [place] [address] Referral ID Status Reason Start Date Expiration Date Visits Requ ested Visits Authorized [id number] Closed 12/15/2019 12/14/2020 1 1 Encounter Details Date Type Department Care Team Description 01/18/2020 Telemedicine Department of General Rodger Dodson M.D. [address] [place] [address] Preanesthetic Medical Exam (Primary Dx); Surgery in [place]udelka Lu Abby P, R.NLara [address] [place] [phone] Primary Osteoarthritis Shoulder Left [place] [address] [place] [address] Social History Tobacco Use Types [...] 01/18/20 regarding surgery on 01/25/20. Surgery Nurse [employer] Reading Teacher Skin Alert Assessment: Complete this section only [...] flat? No Comment: Do you have any pentecostal or other objection to having a blood transfusion? No Teaching: Preoperative education was done with (x) patient and his spouse () parent . It was confirmed the patient/family member had received the following preoperative education sheets:Checklist For Surgical Patients ([id number] 06),???Surgical Site Infections: Reducing Your Risk ([id number]), Speak Up: Antibiotics ([id number]), Acute Pain and the Healing Process ([id number]) with the Integrative Medicine and Health (CK7012-66), and ???Appointments Required Before Your Surgery?? (no MC). These were reviewed in detail. (x) Preoperative medication education provided through Ask [place] Expert (x) Preoperative COVID-19 testing ordered and discussed with patient (x)Preop OT appt (total shoulders only). Patient filled out TOTAL JOINT ARTHROPLASTY DISCHARGE PLANNING FORM (ag: Forms 08/30/2013 / CF-108). 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 Additional Pamphlets also reviewed: (x) Shoulder Replacement Surgery: Reverse Prosthesis ([id number]) and reviewed teaching points for total shoulders instructions. Patient is ready to learn, no apparent learning barriers were identified. Reviewed diagnosis and treatment plan; patient verbalized understanding through teach back. All questions were answered. Patient has contact information and understands the need to call with any questions or concerns. Post op appointments: 1st po with surgeon or physician catering administrative assistant: (x) made ()TBD documented in this encounter Plan of Treatment Not on filedocumented as of this encounter Visit Diagnoses Diagnosis Preanesthetic Medical Exam - Primary Primary Osteoarthritis Shoulder Left documented in this encounter Additional Health Concerns Assessment Noted Time PHQ-9 Depression Total Score: 2 03/08/2015 11:16 AM CS T documented as of this encounter Care Teams Gore Cutter Relationship Specialty Start Date End Date Silver Givens M.D., Ph.D. PCP - General Family Medicine 11/10/19 12/09/[address] [place] [phone] documented as of this encounter
--- OUTSIDE RECORDS SUMMARY | 2022-04-11 08:09 | XMS_ITS | Encounter Summary ---
:[address] [facility] Address [address] [place] [address] Care Team Providers Name Role Phone Silver Givens M.D., Ph.D. Primary Care Provider [phone] Reason for Visit Reason Comments Pre-op Exam 01/25/20- L total Shoulder wi th Dr. Marv Dodson in Outpatient (Routine) - Closed Specialty Diagnoses / Procedures Referred By Contact Refer red To Contact Family Medicine Diagnoses Primary Osteoarthritis Shoulder Left Marv Dodson [facility] Marisela [address] [place] [address] Referral ID Status Reason Start Date Expiration Date Visits Requ ested Visits Authorized [id number] Closed 12/15/2019 12/14/2020 1 1 Encounter Details Date Type Department Care Team Description 01/18/2020 Office Visit Department of Family Silver Givens, Preop erative Exam (Primary Dx); Margarito Kiser M.D., Ph.D. Primary Osteoarthritis Shoulder Left; [facility], in [address] [place] [address] Osteopor osis Without Pathological Fracture; [facility] Deficiency Vitamin D; [place], [place] Atherosclerotic Heart Diseas e Of [place] Coronary Artery Without Angina Pectoris; [address] [place], [place] [address] [phone] Hyperlipidemia; [facility], [facility] [place] [phone] Peripheral Vascular Disease (HCC); [phone] (Work) Stroke Cerebrovascular Accident Personal History; [phone] Hyperglycemia; (Fax) Gastroesophagea l Reflux Disease Without [...] left total shoulder replacement on 01/25/[address] [place] [address] Dodson for left shoulder arthritis. [...] ST Elevation Myocardial Infarction Of Unspecified Site ([facility]) ??? Stroke ([facility]) Past Surgical History: Procedure Laterality Date [...] INTRAOCULAR LENS; Surgeon: Raymundo Muniz M.D.; Location: [facility] OR ??? EXTRACTION CATARACT WITH INSERTION INTRAOCULAR LENS Left 07/21/2017 Procedure: EXTRACTION CATARACT WITH INSERTION INTRAOCULAR LENS; Surgeon: Raymundo Muniz M.D.; Location: [facility] OR ??? MOHS SURGERY N/A [...] file Gets together: Not on file Attends samaritan service: Not on file Active member of [...] Vitamin D #5 Atherosclerotic Heart Disease Of [place] Coronary Artery Without Angina Pectoris #6 Hyperlipidemia [...] sults for this PM CDT Disease Of [place] procedure are in Coronary Artery Without the results Angina Pectoris section. CBC WITH Routine 01/18/2020 11:28 Atherosclerotic Heart Re sults for this DIFFERENTIAL, B AM CDT Disease Of [place] procedu re are in Coronary Artery Without the results Angina Pectoris section. BASIC METABOLIC Routine 01/18/2020 11:28 Atherosclerotic Heart Results for this PANEL, S/P AM CDT Disease Of [place] procedure are in Coronary Artery Without the results Angina Pectoris section. documented in this encounter Results ECG 12 Lead (01/18/2020 12:07 PM CDT) P athologist Signature Ventricular Rate 63 BPM MUSE ECG/Min PA Interval 182 ms MUSE QRSD Interval 86 ms MUSE QT Interval 428 ms MUSE QTC Interval 437 ms MUSE P [place] 51 degrees MUSE R [place] 1 degrees MUSE T Wave [place] 32 degrees MUSE Specimen Anatomical Collection Method [...] CDT eGFR-Black/Afric 72 >=60 01/18/2020 CNFL an Sudanese mL/min/BSA 11:49 AM CDT Comment: ----ADDITIONAL INFORMATION---- [...] Ph.D. LAB BLOOD ADD-ON Performing Organization Address City/State/[facility] Code Phon e Number [phone] [place] [address] [place] [address] System [address] CBC with Differential, Blood (01/18/2020 11:28 [...] Phon e Number [facility]- [address] [place] [phone] [place] [address] System in [address] documented in this encounter Visit Diagnoses Diagnosis Preoperative Exam - Primary Primary Osteoarthritis Shoulder Left Osteoporosis Without Pathological Fractu re Deficiency Vitamin D Atherosclerotic Heart Disease Of [place] Coronary Artery Without Angina Pectoris Hyperlipidemia Peripheral Vascular Disease (HCC) Stroke Cerebrovascular Accident Personal History Hyperglycemia Gastroesophageal Reflux Disease Without Esophagitis Loss Hearing Bilateral documented in this encounter Additional Health Concerns Assessment Noted Time PHQ-9 Depression Total Score: 2 03/08/2015 11:16 AM CS T documented as of this encounter Care Teams Hand Candle Molder Relationship Specialty Start Date End Date Silver Givens M.D., Ph.D. PCP - General Family Medicine 11/10/19 12/09/[address] [place] [phone] documented as of this encounter
--- OUTSIDE RECORDS SUMMARY | 2022-04-11 08:09 | XMS_ITS | Encounter Summary ---
:1940 Author Organization [facility] Address [address] [place] [address] Care Team Providers Name Role Phone Silver Givens M.D., Ph.D. Primary Care Provider [phone] Reason for Visit Reason Comments Communication 3 month endoscopy call, susanna salmeron Encounter Details Date Type Department Care Team Description 09/12/2020 Clinical Department of Carmen Mcdonald (3 Communication General Surgery in A, L.P.N. month endoscopy call, Fabricio Kirk, [address] [place], [place] [address]shaane vanmi) [address] [phone] Social History Tobacco Use Types [...] Armstrong - 09/12/2020 2:57 PM CDT 1st Attempt/REJI, 09/12/20. Telephone Encounter - Carmen Mcdonald L.P.N. - 09/12/2020 1:41 PM CDT Upper Endoscopy: No Upper Endoscopy with Pride: No If yes, proton pump inhibitor needs to be held for 5 days prior to scope Lower Endoscopy: No Upper and Lower Endoscopy: Yes Ordering Provider: Dr Woodward Indication for procedure: Anemia, unspecified type (D64.9) Gualac positive stools (R19.5 If scheduled in [facility], pre-op appointment scheduled: No Pre-Endoscopy Education done: [...] testing 3-7 days prior at [address] [place] [address] documented in this encounter Plan of Treatment Not on filedocumented as of this encounter Results SARS Coronavirus-2 RNA, V Asymptomatic (09/25/2020 8:31 AM CDT) [facility] Method Time Signature SARS-CoV-2 Swab, 09/25/2020 [...] pe rformed using the Aptima SARS-CoV-2 assay ([employer] on the [place] Sys tem under emergency use authorization (EUA) by the U.S. Food and Drug Administ ration. Fact sheets for this EUA assay can be fo und at the following links: For Healthcare Providers: https://www.Heart Health a.gov/media/539167/download For Patients: https://www.fda.gov/media/ 524241/download Specimen Anatomical Collection Method Collection Time Receive d Time (Source) Location / / Volume Laterality Varies 09/25/2020 8:31 AM 2:56 (Nasopharynx) CDT PM CDT Wood Car M.D. LAB MICROBIOLOGY - GENERAL O RDERABLES Performing Organization Address City/State/ZIP Code Phon e Number [facility]- [address] [place] [address] 54 [phone] [facility] [place] [address] System in [address] documented in this encounter Visit Diagnoses Diagnosis Anemia Iron Deficiency Blood Loss Chroni c - Primary documented in this encounter Additional Health Concerns Assessment Noted Time PHQ-9 Depression Total Score: 2 03/08/2015 11:16 AM JENNA T documented as of this encounter Care Teams Dress Finisher Relationship Specialty Start Date End Date Silver Givens M.D., Ph.D. PCP - General Family Medicine 11/10/19 12/09/[address] [place] [phone] documented as of this encounter
--- OUTSIDE RECORDS SUMMARY | 2022-04-11 08:09 | XMS_ITS | Encounter Summary ---
:1940 Author Organization [facility] Address [address] [place] [address] Care Team Providers Name Role Phone Silver Givens M.D., Ph.D. Primary Care Provider [phone] Encounter Details Date Type Department Care Team Description 03/08/2020 Hospital Encounter Department of Laine Day Follo w Up Examination Radiology in [place] P.A.-C. Postoperative Visit [address] [phone] Social History Tobacco Use Types Packs/Day Years [...] for this 2+ VIEWS (most inpatients AM AIR CONTROL ELECTRONICS OPERATOR Examination procedure a re in and all Postoperative Visit the resu lts outpatients) section. documented in this encounter Results DX Shoulder Left 2+ Views (03/08/2020 9:49 AM AIR CONTROL ELECTRONICS OPERATOR) Anatomical Region Laterality Modality Upper Extremity, Shoulder, Musculoskeletal RST LOS, Left Digital Radiography Musculoskeletal ARZ LOS, Muskuloskeletal FLA LOS Specimen (Source) Anatomical Collection Method Collection Time Re ceived Time Location / / Volume Laterality 03/08/2020 9:51 AM AIR CONTROL ELECTRONICS OPERATOR Impressions 03/08/2020 9:54 AM AIR CONTROL ELECTRONICS OPERATOR Left total reverse shoulder arthroplasty hardware components appear well seated and intact. No dislocation. Negative for acute fracture. Aortic calcifications. Thoracic spondylosis. Co mparison December 15, 2019. Narrative 03/08/2020 9:54 AM AIR CONTROL ELECTRONICS OPERATOR EXAM: DX SHOULDER LEFT 2+ VIEWS [...] documented as of this encounter Care Teams Unix Developer Relationship Specialty Start Date End Date Silver Givens M.D., Ph.D. PCP - General Family Medicine 11/10/19 12/09/[address] [place] [phone] documented as of this encounter
--- OUTSIDE RECORDS SUMMARY | 2022-04-11 08:09 | XMS_ITS | Encounter Summary ---
:1940 Author Organization [facility] Address [address] [place] [address] Care Team Providers Name Role Phone Silver Givens M.D., Ph.D. Primary Care Provider [phone] Encounter Details Date Type Department Care Team [...] documented as of this encounter Care Teams Historian Dramatic Arts Relationship Specialty Start Date End Date Silver Givens M.D., Ph.D. PCP - General Family Medicine 11/10/19 12/09/[address] [place] [phone] documented as of this encounter
--- OUTSIDE RECORDS SUMMARY | 2022-04-11 08:09 | XMS_ITS | Encounter Summary ---
:1940 Author Organization [facility] Address [address] [place] [address] Care Team Providers Name Role Phone Silver Givens M.D., Ph.D. Primary Care Provider [phone] Reason for Visit Reason Comments Communication 3 day endoscopy call, covny Encounter Details Date Type Department Care Team Description 09/26/2020 Clinical Department of Carmen Mcdonald (3 day Communication General Surgery in A, L.P.N. endoscopy call, [place], [address] [place] [address]) [address] [phone] Social History Tobacco Use Types Packs/Day Years Used Date Smoking Tobacco: Former Smokeless Tobacco: Never Alcohol Use Standard Drinks/Week Comments No 0 (1 standard drink = 0.6 oz pure alcoho l) Sex Assigned at Date Recorded Not on file documented as of this encounter Miscellaneous Notes Telephone Encounter - Carmen Mcdonald L.PSelvin - 09/27/2020 10:43 AM CDT Endoscopy 3 Day Phone call Anesthesia Risk Assessment: Do you have an implanted cardiac device? No If yes, instructed to bring card day of procedure. No Last date interrogated: () Do you have difficulties lying flat? No Do you have an gnosticism or other objection to having a blood transfusion? No Medication Review: Anticoagulation: Yes Diabetic: No Prescription pain medication: No Did you get instructions for what medications to hold? Yes Reviewed booklet with patient including prep, procedural expectations, NPO instructions, arrival time and that they need a school boat driver: Yes Time patient needs to arrive for procedure: (9:40 AM) Patient verbalizes arrival time and instructions for procedure: Yes If patient is concerned he is not empting pre-procedural, please call the listed number, based on location, the morning of. [phone] [facility] [phone] [facility] [phone] [facility] COVID Screening Questions Does [...] documented as of this encounter Care Teams Roller Coaster Engineer Relationship Specialty Start Date End Date Silver Givens M.D., Ph.D. PCP - General Family Medicine 11/10/19 12/09/[address] [place] [phone] documented as of this encounter
--- OUTSIDE RECORDS SUMMARY | 2022-04-11 08:09 | XMS_ITS | Encounter Summary ---
:1940 Author Organization [facility] Address [address] [place] [address] Care Team Providers Name Role Phone Silver Givens M.D., Ph.D. Primary Care Provider [phone] Reason for Visit Physical Therapy (Routine) - Canceled Specialty Diagnoses / Procedures Referred By Contact Refer red To Contact Diagnoses Aftercare Total Shoulder Arthroplasty Laine Day, P.A.-C. [facility] Procedures PT Ongoing treatment [address] [facility] [place] [phone] Referral ID Status Reason Start Date Expiration Date Visits V isits Requested Authorized [id number] Canceled 02/07/2020 02/06/2021 99 99 Encounter Details Date Type Department Care Team Description 04/19/2020 Clinical Support Department of Laine Day, P.A.-C. [address] [facility] [place] [phone] Aftercare Total Rehabilitation Arti Lundberg, P.TLara [address] [place] [phone] Shoulder Services in [address] [phone] Social History Tobacco Use Types Packs/Day Years [...] P.T. Department of Rehabilitation Services in [address] [address] Dept: [phone] ISITIONS LIBRARIAN documented in this encounter Plan of Treatment Not on filedocumented as of this encounter Visit Diagnoses Diagnosis Aftercare Total Shoulder Arthroplasty documented in this encounter Additional Health Concerns Assessment Noted Time PHQ-9 Depression Total Score: 2 03/08/2015 11:16 AM CS T documented as of this encounter Care Teams Milk Sampler Relationship Specialty Start Date End Date Silver Givens M.D., Ph.D. PCP - General Family Medicine 11/10/19 12/09/[address] [place] [phone] documented as of this encounter
--- OUTSIDE RECORDS SUMMARY | 2022-04-11 08:09 | XMS_ITS | Encounter Summary ---
:1940 Author Organization [facility] Address [address] [place] [address] Care Team Providers Name Role Phone Silver Givens M.D., Ph.D. Primary Care Provider [phone] Reason for Visit Reason Comments Med list questions Encounter Details Date Type Department Care Team Description 01/20/2020 Clinical Communication Department of Silver Givens Me d list questions Family Medicine, MMarry, Ph.D. [address], in [address] [address] [facility] [phone] [place], [place] (Work) [phone] Social History Tobacco Use Types Packs/Day Years Used Date Smoking Tobacco: Former Smokeless Tobacco: Never Alcohol Use Standard Drinks/Week Comments No 0 (1 standard drink = 0.6 oz pure alcoho l) Sex Assigned at Date Recorded Not on file documented as of this encounter Miscellaneous Notes Telephone Encounter - Prachi Davis R.N. - 2020 11:10 AM CDT SUBJECTIVE CHIEF [...] documented as of this encounter Care Teams Laboratory Manager Relationship Specialty Start Date End Date Silver Givens M.D., Ph.D. PCP - General Family Medicine 11/10/19 12/09/[phone] [phone] documented as of this encounter
--- OUTSIDE RECORDS SUMMARY | 2022-04-11 08:09 | XMS_ITS | Encounter Summary ---
:1940 Author Organization [facility] Address [address] [place] [address] Care Team Providers Name Role Phone Silver Givens M.D., Ph.D. Primary Care Provider [phone] Reason for Visit Reason Comments Post-op Outpatient (Routine) - Closed Specialty Diagnoses / Procedures Referred By Contact Refer red To Contact Orthopedic Surgery Laine Day, PLaraALara -C. [facility] Region [address] [place] [address] Referral ID Status Reason Start Date Expiration Date Visits Requ ested Visits Authorized [id number] Closed 02/09/2020 02/08/2021 1 1 Encounter Details Date Type Department Care Team Description 03/08/2020 Office Visit Department of Laine Day, Follow Up E xamination Orthopedic Surgery in P.A.-C. Postoperative Visit [place] [address] Ev[address] Lopez (Primary Dx) [address] [place] [phone] Social History Tobacco Use Types Packs/Day Years [...] and these were reviewed with the patient. K SKIN CURER documented in this encounter Plan of Treatment Not on filedocumented as of this encounter Results DX Shoulder Left 2+ Views (03/08/2020 9:49 AM SLUNK SKIN CURER) Anatomical Region Laterality Modality Upper Extremity, Shoulder, Musculoskeletal RST LOS, Left Digital Radiography Musculoskeletal ARZ LOS, Muskuloskeletal FLA LOS Specimen (Source) Anatomical Collection Method Collection Time Re ceived Time Location / / Volume Laterality 03/08/2020 9:51 AM SLUNK SKIN CURER Impressions 03/08/2020 9:54 AM SLUNK SKIN CURER Left total reverse shoulder arthroplasty hardware components appear well seated and intact. No dislocation. Negative for acute fracture. Aortic calcifications. Thoracic spondylosis. Co mparison December 15, 2019. Narrative 03/08/2020 9:54 AM SLUNK SKIN CURER EXAM: DX SHOULDER LEFT 2+ VIEWS Procedure [...] documented as of this encounter Care Teams Chemistry Research Assistant Relationship Specialty Start Date End Date Silver Givens M.D., Ph.D. PCP - General Family Medicine 11/10/19 12/09/[address] [place] [phone] documented as of this encounter
--- OUTSIDE RECORDS SUMMARY | 2022-04-11 08:09 | XMS_ITS | Encounter Summary ---
:1940 Author Organization [facility] Address [address] [place] [address] Care Team Providers Name Role Phone Silver Givens M.D., Ph.D. 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] Procedures ARTHROPLASTY TOTAL REVERSE SHOULDER- Referral ID Status Reason Start Date Expiration Date Visits Requ ested Visits Authorized [id number] 1 1 Encounter Details Date Type Department Care Team Description 01/22/2020 Hospital Encounter Department of [place], Primary Osteoarthritis Laboratory Medicine Giulia Fair Shoulder Left in [address] [address] [place], [place] [phone] (Work) [phone] Social History Tobacco Use Types Packs/Day Years [...] RNA, V Asymptomatic (01/22/2020 9:29 AM CDT) [facility] Method Time Signature SARS-CoV-2 Swab, [...] is performed using the Aptima SARS-CoV-2 assay ([employer] which has received Emergency Use Authori zation (EUA) by the U.S. Food and Drug Administration. Fact sheets for this Emergency Use Autho rization (EUA) assay can be found at the following links: For Healthcare Providers: https://www.Synth[employer] a.gov/media/554079/download For Patients: https://www.fda.gov/media/ 750996/download Specimen Anatomical Collection Method Collection Time Receive d Time (Source) Location / / Volume Laterality Varies 01/22/2020 9:29 AM 0 3:53 (Nasopharynx) CDT PM CDT Marv Dodson M.D. LAB MICROBIOLOGY - GENERAL O GEORGEERACAROLE Performing Organization Address City/State/ZIP Code Phon e Number [facility]- [address] [place] [address] 54 [phone] [facility] [place] [address] System [address] documented in this encounter Visit Diagnoses Diagnosis Primary Osteoarthritis Shoulder Left documented in this encounter Additional Health Concerns Infection Onset Date Last Indicated Resolved Time COVID19 Pending 01/22/2020 01/22/2020 01/22/2020 11:33 PM CDT Assessment Noted Time PHQ-9 Depression Total Score: 2 03/08/2015 11:16 AM CS T documented as of this encounter Care Teams Airframe Technician Relationship Specialty Start Date End Date Silver Givens M.D., Ph.D. PCP - General Family Medicine 11/10/19 12/09/[address] [phone] documented as of this encounter
--- OUTSIDE RECORDS SUMMARY | 2022-04-11 08:09 | XMS_ITS | Encounter Summary ---
:1940 Author Organization [facility] Address [address] [place] [address] Care Team Providers Name Role Phone Silver Givens M.D., Ph.D. Primary Care Provider [phone] Encounter Details Date Type Department Care Team Description 09/29/2020 Hospital Encounter Department of Wood Car, Gastroenterology in [address] [phone] [phone] Social History Tobacco Use Types Packs/Day Years [...] CDTAssociated Order(s): UPPER GI ENDOSCOPY [facility] Patient Name: Obey Vines Procedure Date: [...] 10:10 AM CDTAssociated Order(s): COLONOSCOPY [facility] Patient Name: Obey Vines Procedure Date: [...] bowel preparation was evaluated using the BBPS ([place] Bowel Preparation Scale) with scores of: [...] Component Value Ref Test Analysis Performed At [facility] Method Time Signature 10/04/2020 ECLR 8:26 AM CDT Report Rodrigo Taylor 10/04/2020 ECLR electronically Marisela Henderson 8:26 AM [...] Organization Address City/State/ZIP Code Phon e Number [facility]- [address] [place] [address] [phone] [facility] [place] [address] System [address] UPPER GI ENDOSCOPY (09/29/2020 10:14 AM CDT) Specimen (Source) Anatomical Location Collection Method / Collectio n Time Received Time / Laterality Volume Narrative This result has an attachment that is no t available. Procedure Note Wood Car M.D. - 09/29/2020 10:14 AM CDT [facility] Patient Name: Obey Vines Procedure Date: [...] is no t available. Procedure Note Wood Cra M.D. - 09/29/2020 10:10 AM CDT [facility] Patient Name: Obey Vines Procedure Date: 09/29/2020 10:10 AM Date of : 1940 Age: 80 Gender: Male Procedure: Colonoscopy Providers: Wood Cra MD, Coy Forbes (Ordering Provider) Referring Provider: [...] preparation was ev aluated using the BBPS ([place] Bowel Preparation Scal e) with scores [...] as of this encounter Care Teams Media Planner / Buyer Relationship Specialty Start Date End Date Silver Givens M.D., Ph.D. PCP - General Family Medicine 11/10/19 12/09/[address] [place] [phone] documented as of this encounter
--- OUTSIDE RECORDS SUMMARY | 2022-04-11 08:09 | XMS_ITS | Encounter Summary ---
:1940 Author Organization [facility] Address [address] [place] [address] Care Team Providers Name Role Phone Silver Givens M.D., Ph.D. 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 Anali Anne M.D. [address] [place] [address] Vicky1 Christa Ball M.D. [address] [place] [address] YARIEL CUMMINS [phone] Anesthesia Record Procedure Summary Procedure Name [...] to the receiving staff during [facility] we 1. Identified the patient [...] Butler, Yoo jung, Time: 1327 (created via WELLNESS COACH, BLEACH PLANT OPERATOR, DNAP WELLNESS COACH, C RNA, DNAP procedure documentation); Mask Ventilation: Not attempted; Removal Date: 01/25/20; Removal Time: 1517 (RETIRED) Incision 01/25/20; 1403; 01/25/20 1403 by 01/23/21 141 8 by Shoulder; Left; Freeman beckham Tammara L, [facility]-Backgroun sling; 01/23/21 (Removed R.N. d, Sche [...] Procedure Summary Date: 01/25/20 Room / Location: [address] 01 1407 / [facility] - Anesthesia Start: 1309 Anesthesia Stop: 1524 [...] Osteoarthritis Shoulder Left [M19.012] Location: OR 04 [facility] 424 / [facility] - GI Surgeon: Marv Dodson M.D. Pertinent [...] Problems CV (+) Atherosclerotic Heart Disease Of [place] Coronary Artery Without Angina Pectoris (+) Peripheral Vascular Disease (HCC) GI (+) Gastroesophageal Reflux Disease Without Esophagitis Other (+) Primary Osteoarthritis Shoulder Left (+) Stroke Cerebrovascular Accident Personal History Hx NSTEMI 08/2018-s/p SHAHAB to LAD-plavix/ASA Labs reviewed EKG- NSR, PVCs, Right BBB S/p Left CEA in past S/p reverse TSA [id number] plus block Hx of memory issues after [...] with patient /legal guardian or through an comb machine operator. Risks/Benefits/Alternatives of Blood transfusion discussed with patient [...] procedure ar e in the results section. MA US GUIDE PLC NDL Routine 01/25/2020 11:33 AM R esults for this CDT procedure are i n the results section. MA INJ ANES BRACHIAL Routine 01/25/2020 11:33 AM Results for this PLEX W GUIDANCE CDT procedure ar e in the results [...] no complications Anali Dodson M.D. ANESTHESIA ORDERABLES MA INJ ANES BRACHIAL PLEX W GUIDANCE, MA US GUIDE PLC NDL, MC ANE NERVE BLOCK WITH ULTRASOUND (01/25/2020 11:33 AM CDT) Narrative Marv Simmons APRN, CRNA - 01/25/20 20 11:33 AM CDT Marv Simmons APRN, CRNA [...] procedure Other complications: none Marv Simmons APRN, BLEACH PLANT OPERATOR PROCEDURE/MINOR SURGICAL O RDERABLES documented in this [...] documented as of this encounter Care Teams Bow Maker Machine Tender Relationship Specialty Start Date End Date Silver Givens M.D., Ph.D. PCP - General Family Medicine 11/10/19 12/09/[id number] [place] [phone] documented as of this encounter
--- OUTSIDE RECORDS SUMMARY | 2022-04-11 08:09 | XMS_ITS | Encounter Summary ---
:1940 Author Organization [facility] Address [address] [place] [address] Care Team Providers Name Role Phone Silver Givens M.D., Ph.D. Primary Care Provider [phone] Reason for Visit Physical Therapy (Routine) - Canceled Specialty Diagnoses / Procedures Referred By Contact Refer red To Contact Diagnoses Aftercare Total Shoulder Arthroplasty Laine Day, P.A.-C. [facility] Procedures PT Ongoing treatment [address] [place] [address] Referral ID Status Reason Start Date Expiration Date Visits V isits Requested Authorized [id number] Canceled 02/07/2020 02/06/2021 99 99 Encounter Details Date Type Department Care Team Description 04/05/2020 Clinical Support Department of Laine Day, P.A.-C. [address] [facility] [place] [phone] Aftercare Total Rehabilitation Arti Lundberg, P.TLara [address] [place] [phone] Shoulder Services in [address] [phone] Social History Tobacco Use Types Packs/Day Years [...] Lundberg P.T. Department of Rehabilitation Services in [address] [address] Dept: [phone] ICAL RESEARCH TECHNICIAN documented in this encounter Plan of Treatment Not on filedocumented as of this encounter Visit Diagnoses Diagnosis Aftercare Total Shoulder Arthroplasty documented in this encounter Additional Health Concerns Assessment Noted Time PHQ-9 Depression Total Score: 2 03/08/2015 11:16 AM CS T documented as of this encounter Care Teams Automobile Assembly Supervisor Relationship Specialty Start Date End Date Silver Givens M.D., Ph.D. PCP - General Family Medicine 11/10/19 12/09/[address] [place] [phone] documented as of this encounter
--- OUTSIDE RECORDS SUMMARY | 2022-04-11 08:09 | XMS_ITS | Encounter Summary ---
:1940 Author Organization [facility] Address [address] [place] [address] Care Team Providers Name Role Phone Silver Givens M.D., Ph.D. Primary Care Provider [phone] Reason for Visit Physical Therapy (Routine) - Canceled Specialty Diagnoses / Procedures Referred By Contact Refer red To Contact Diagnoses Aftercare Total Shoulder Arthroplasty Laine Day, P.A.-C. [facility] Procedures PT Ongoing treatment [address] [place] [address] Referral ID Status Reason Start Date Expiration Date Visits V isits Requested Authorized [id number] Canceled 02/07/2020 02/06/2021 99 99 Encounter Details Date Type Department Care Team Description 03/13/2020 Clinical Support Department of Laine Day, P.A.-C. [address] [facility] [place] [phone] Aftercare Total Rehabilitation Arti Lundberg, P.TLara [address] [place] [phone] Shoulder Services in [address] [phone] Social History Tobacco Use Types Packs/Day Years [...] P.T. Department of Rehabilitation Services in [address] [address] Dept: [phone] ER ASSEMBLER documented in this encounter Plan of Treatment Not on filedocumented as of this encounter Visit Diagnoses Diagnosis Aftercare Total Shoulder Arthroplasty documented in this encounter Additional Health Concerns Assessment Noted Time PHQ-9 Depression Total Score: 2 03/08/2015 11:16 AM CS T documented as of this encounter Care Teams Gusset Edger Relationship Specialty Start Date End Date Silver Givens M.D., Ph.D. PCP - General Family Medicine 11/10/19 12/09/[address] [place] [phone] documented as of this encounter
--- OUTSIDE RECORDS SUMMARY | 2022-04-11 08:09 | XMS_ITS | Encounter Summary ---
:1940 Author Organization [facility] Address [address] [place] [address] Care Team Providers Name Role Phone Silver Givens M.D., Ph.D. Primary Care Provider [phone] Reason for Visit Physical Therapy (Routine) - Canceled Specialty Diagnoses / Procedures Referred By Contact Refer red To Contact Diagnoses Aftercare Total Shoulder Arthroplasty Laine Day, P.A.-C. [facility] Procedures PT Ongoing treatment [address] [facility] [address] Referral ID Status Reason Start Date Expiration Date Visits V isits Requested Authorized [id number] Canceled 02/07/2020 02/06/2021 99 99 Encounter Details Date Type Department Care Team Description 02/28/2020 Clinical Support Department of Laine Day, P.A.-C. [address] [facility] [place] [phone] Aftercare Total Rehabilitation Arti Lundberg, P.TLara [address] [place] [phone] Shoulder Services in [address] [phone] Social History Tobacco Use Types Packs/Day Years Used Date Smoking Tobacco: Former Smokeless Tobacco: Never Alcohol Use Standard Drinks/Week Comments No 0 (1 standard drink = 0.6 oz pure alcoho l) Sex Assigned at Date Recorded Not on file documented as of this encounter Progress Notes rAti Lundberg P.T. - 02/28/2020 9:00 AM CDT [...] Lundberg P.T. Department of Rehabilitation Services in [address] [address] Dept: [phone] documented in this encounter Plan of Treatment Not on filedocumented as of this encounter Visit Diagnoses Diagnosis Aftercare Total Shoulder Arthroplasty documented in this encounter Additional Health Concerns Assessment Noted Time PHQ-9 Depression Total Score: 2 03/08/2015 11:16 AM CS T documented as of this encounter Care Teams Research Fellow Relationship Specialty Start Date End Date Silver Givens M.D., Ph.D. PCP - General Family Medicine 11/10/19 12/09/[address] [place] [phone] documented as of this encounter
--- OUTSIDE RECORDS SUMMARY | 2022-04-11 08:09 | XMS_ITS | Encounter Summary ---
:1940 Author Organization [facility] Address [address] [place] [address] Care Team Providers Name Role Phone Silver Givens M.D., Ph.D. Primary Care Provider [phone] Reason for Referral Physical Therapy (Routine) - Closed Specialty Diagnoses / Procedures Referred By Contact Refer red To Contact Diagnoses Aftercare Total Shoulder Arthroplasty Laine Day P.A.-C. [facility] Procedures PT Evaluate and treat [address] [place] [phone] Referral ID Status Reason Start Date Expiration Date Visits Requ ested Visits Authorized [id number] Closed 01/26/2020 01/25/2021 1 1 Outpatient (Routine) - Closed Specialty Diagnoses / Procedures Referred By Contact Refer red To Contact Orthopedic Surgery Laine Day P.A. -C. 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 [facility], [address] [place] [address] Arthroplasty Third Floor [place], [place] (Primary Dx) [address] [facility] [address] [place], [place] [phone] (Work) [phone] Social History Tobacco Use Types Packs/Day Years [...] SHOULDER- Marv Dodson M.D.Jensen, Jill C, P.A.-C. [facility] OR DISCHARGE DIAGNOSIS: right Reverse TSA DISCHARGE [...] List Diagnosis ??? Atherosclerotic Heart Disease Of [place] Coronary Artery Without Angina Pectoris ??? Stroke [...] left total shoulder replacement on 01/25/[address] [facility] [address] Dodson for left shoulder arthritis. [...] [facility]) ??? Stroke ([facility]) Past Surgical History: Procedure Laterality Date ??? ARTHROPLASTY OF SHOULDER N/A 03/23/2015 Arthroplasty of the shoulder ??? CARPAL TUNNEL RELEASE N/A 02/24/2007 >Right carpal tunnel release. ??? CATH ANGIOGRAM N/A 08/15/2018 Procedure: Coronary Angiography; Surgeon: Jacques Barraza M.D.; Location: [facility] CCL ??? CATH INTERVENTION N/A 08/15/2018 Procedure: [...] INTRAOCULAR LENS; Surgeon: Raymundo Muniz M.D.; Location: [facility] OR ??? EXTRACTION CATARACT WITH INSERTION INTRAOCULAR LENS Left 07/21/2017 Procedure: EXTRACTION CATARACT WITH INSERTION INTRAOCULAR LENS; Surgeon: Raymundo Muniz M.D.; Location: [facility] OR ??? MOHS SURGERY N/A [...] Vitamin D #5 Atherosclerotic Heart Disease Of [place] Coronary Artery Without Angina Pectoris #6 Hyperlipidemia [...] List Diagnosis ??? Atherosclerotic Heart Disease Of [place] Coronary Artery Without Angina Pectoris ??? Stroke [...] REVERSE SHOULDER-; Surgeon: Marv Dodson M.D.; Location: [facility] OR ??? CARPAL TUNNEL RELEASE N/A 02/24/2007 [...] INTRAOCULAR LENS; Surgeon: Raymundo Muniz M.D.; [facility] ??? EXTRACTION CATARACT WITH INSERTION INTRAOCULAR LENS Left 07/21/2017 Procedure: EXTRACTION CATARACT WITH INSERTION INTRAOCULAR LENS; Surgeon: Raymundo Muniz M.D.; Location: [facility] OR ??? MOHS SURGERY N/A 06/23/2006 >Mohs Micrographic Surgery With Layered Closure. ??? 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 Education with home [...] Time (min): 65 min Ana Villagomez O.T. [facility], Third Floor [address] [place] [address] Dept: [phone] Fortunato Davenport M.D. - 01/25/2020 6:33 PM [...] Of Unspecified Site (HCC) ??? Stroke (HCC) PAST SURGICAL HISTORY Past Surgical History: Procedure [...] INTRAOCULAR LENS; Surgeon: Raymundo Muniz M.D.; Location: [facility] OR ??? EXTRACTION CATARACT WITH INSERTION INTRAOCULAR LENS Left 07/21/2017 Procedure: EXTRACTION CATARACT WITH INSERTION INTRAOCULAR LENS; Surgeon: Raymundo Muniz M.D.; Location: [facility] OR ??? 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 Moved in to the town of [facility] with his . Quit smoking [...] List Diagnosis ??? Atherosclerotic Heart Disease Of [place] Coronary Artery Without Angina Pectoris ??? Stroke [...] total shoulder arthroplasty. SURGEON(S) Marv Dodson MD. FLAME CUTTER: Laine Day PA-C. I requested Laine to [...] Marv Dodson M.D. CT CT Job ID: [id number] Brief Op Note - Marv Dodson M.D. - 01/25/2020 1:57 PM CDT BRIEF OP NOTE Procedure(s) (LRB): ARTHROPLASTY TOTAL REVERSE SHOULDER- (Left) Surgeon(s) and Role: * Marv Dodson M.D. - Primary * Laine Day P.A.-C. - Hydroelectric Station Chief Anesthesia Type General with pain block Pre-operative Diagnosis Primary Osteoarthritis Shoulder Left Post-operative Diagnosis Primary Osteoarthritis Shoulder Left Findings As expected. Complications None Specimens None Drains None Estimated Blood Loss 60 mL Implants Implant Name Type Inv. Item Serial No. Tight Barrel Inspector Lot No. LRB No. Used Action anatomic reverse shoulder screw syssh Shoulder Implant NA [employer] [id number] Left 1 Implanted BSPLT GLND TRB 15 - SNA - [id number] Shoulder Implant BSPLT GLND TRB 15 NA [employer] [id number] [address] FTHRD LCK 4.5X36 - SNA - [id number] Shoulder Implant SCRW PRT ST FTHRD LCK 4.5X36 NA [employer] [id number] Left 1 Implanted COMP GLND TRB 36 - SNA - [id number] Shoulder Implant COMP GLND TRB 36 NA [employer] [id number] Left 1 Implanted humeral stem Shoulder Implant NA [employer] [id number] Left 1 Implanted SHLDR LNR TRB RVRS +0X36 - [facility] - [id number] Shoulder Implant SHLDR LNR TRB RVRS +0X36 NA [employer] [id number] Left 1 Implanted Marv Dodson M.D. documented [...] City/State/ZIP Code Phon e Number [facility]- [address] [place], [place] [address] [place] [address] System in [facility] Xander Mirza documented in this encounter Visit Diagnoses Diagnosis Primary Osteoarthritis Shoulder Left - P rimary Aftercare Total Shoulder Arthroplasty Aftercare Total Shoulder Arthroplasty Atherosclerotic Heart Disease Of [place] Coronary Artery Without Angina Pectoris Stroke Cerebrovascular [...] mg (TYLENOL) (COMPLETED) 1042 (Given - Provider: Jorge MariaLaraNLara) 1,000 mg, oral, Once, On Fri01/25/20 at [...] 1342 (Given - Provider: Neptali Boyce APRN, [facility], R.N.) 2 g (rounded from 1.74 g [...] Ba g - Provider: Marv Simmons APRN, ASSISTANT ACTIVITIES DIRECTOR)1306 (Anesthesia Volume Adjustment - Provider: Neptali Boyce [...] mg of calcium, oral, Every 2 hour DE N, indigestion, Starting Fri01/25/20 at 1632, Doses [...] documented as of this encounter Care Teams Furnace Builder Relationship Specialty Start Date End Date Silver Givens M.D., Ph.D. PCP - General Family Medicine 11/10/19 12/09/[address] [place] [phone] documented as of this encounter
--- OUTSIDE RECORDS SUMMARY | 2022-04-11 08:09 | XMS_ITS | Encounter Summary ---
:1940 Author Organization [facility] Address [address] [place] [address] Care Team Providers Name Role Phone Silver Givens M.D., Ph.D. Primary Care Provider [phone] Reason for Visit Reason Comments Med Refill Encounter Details Date Type Department Care Team Description 03/07/2020 Refill Department of Family Medicine, Mike Givens M.D., Med Refill [facility], in [address] [phone] (Wo rk) Social History Tobacco Use Types [...] by mouth daily. Pharmacy (include location): [facility] in [place] Patient is out of medication MAINTENANCE TECHNICIAN documented in this encounter Plan of Treatment Not on filedocumented as of this encounter Visit Diagnoses Not on filedocumented in this encounter Additional Health Concerns Assessment Noted Time PHQ-9 Depression Total Score: 2 03/08/2015 11:16 AM CS T documented as of this encounter Care Teams Cadmium Plater Relationship Specialty Start Date End Date Silver Givens M.D., Ph.D. PCP - General Family Medicine 11/10/19 12/09/[address] [place] [phone] documented as of this encounter
--- OUTSIDE RECORDS SUMMARY | 2022-04-11 08:09 | XMS_ITS | Encounter Summary ---
:1940 Author Organization [facility] Address [address] [place] [address] Care Team Providers Name Role Phone Silver Givens M.D., Ph.D. Primary Care Provider [phone] Reason for Referral Outpatient (Routine) - Closed Specialty Diagnoses / Procedures Referred By Contact Refer red To Contact Orthopedic Surgery [facility]aine Day [facility].A. -[facility] [address] [phone] Referral ID Status Reason Start Date Expiration Date Visits Requ ested Visits Authorized [id number] Closed 02/09/2020 02/08/2021 1 1 Reason for Visit Reason Comments Follow-up Arthroplasty Outpatient (Routine) - Closed Specialty Diagnoses / Procedures Referred By Contact Refer red To Contact Orthopedic Surgery Marv Dodson M. D. [address] [phone] Referral ID Status Reason Start Date Expiration Date Visits Requ ested Visits Authorized [id number] Closed 12/15/2019 12/14/2020 1 1 Encounter Details Date Type Department Care Team Description 02/09/2020 Office Visit Department of Laine Day, Follow Up E xamination Orthopedic Surgery in [place]. Postoperative Visit Fabricio Kirk [place] [address] (Primary Dx) [address] [place] [phone] Social History Tobacco Use Types Packs/Day Years [...] as of this encounter Care Teams Branch Account Manager Relationship Specialty Start Date End Date Silver Givens M.D., Ph.D. PCP - General Family Medicine 11/10/19 12/09/[phone] [place] [phone] documented as of this encounter
--- OUTSIDE RECORDS SUMMARY | 2022-04-11 08:09 | XMS_ITS | Encounter Summary ---
:1940 Author Organization [facility] Address [address] [place] [address] Care Team Providers Name Role Phone Silver Givens M.D., Ph.D. Primary Care Provider [phone] Reason for Visit Physical Therapy (Routine) - Closed Specialty Diagnoses / Procedures Referred By Contact Refer red To Contact Diagnoses Aftercare Total Shoulder Arthroplasty Laine Day, P.A.-C. [facility] Procedures PT Evaluate and treat [address] [facility] [place] [phone] Referral ID Status Reason Start Date Expiration Date Visits Requ ested Visits Authorized [id number] Closed 01/26/2020 01/25/2021 1 1 Encounter Details Date Type Department Care Team Description 02/07/2020 Comprehensive Visit Department of Laine Day, P.A.-C. [address] [place] [phone] Aftercare Total Rehabilitation Arti Lundberg, P.T. [address] [phone] Shoulder Services in [address] [phone] Social History Tobacco Use Types Packs/Day Years [...] AND B / Product Type: Medicare / EndoShape Visit Count: 1 PERTINENT MEDICAL / SURGICAL HISTORY: Patient Active Problem List Diagnosis ??? Atherosclerotic Heart Disease Of [place] Coronary Artery Without Angina Pectoris ??? Stroke [...] REVERSE SHOULDER-; Surgeon: Marv Dodson M.D.; Location: [facility] OR ??? CARPAL TUNNEL RELEASE N/A 02/24/2007 [...] INTRAOCULAR LENS; Surgeon: Raymundo Muniz M.D.; Location: [facility] OR ??? EXTRACTION CATARACT WITH INSERTION INTRAOCULAR LENS Left 07/21/2017 Procedure: EXTRACTION CATARACT WITH INSERTION INTRAOCULAR LENS; Surgeon: Raymundo Muniz M.D.; Location: [facility] OR ??? MOHS SURGERY N/A [...] Lundberg P.T. Department of Rehabilitation Services in [address] [address] Dept: [phone] documented in this encounter Plan of Treatment Not on filedocumented as of this encounter Visit Diagnoses Diagnosis Aftercare Total Shoulder Arthroplasty documented in this encounter Additional Health Concerns Assessment Noted Time PHQ-9 Depression Total Score: 2 03/08/2015 11:16 AM CS T documented as of this encounter Care Teams Merchant Banker Relationship Specialty Start Date End Date Silver Givens M.D., Ph.D. PCP - General Family Medicine 11/10/19 12/09/[address] [place] [phone] documented as of this encounter
--- OUTSIDE RECORDS SUMMARY | 2022-04-11 08:09 | XMS_ITS | Encounter Summary ---
:1940 Author Organization [facility] Address [address] [place] [address] Care Team Providers Name Role Phone Silver Givens M.D., Ph.D. Primary Care Provider [phone] Reason for Visit Reason Comments Discharge Planning Encounter Details Date Type Department Care Team Description 01/18/2020 Clinical Communication Department of Agnes Jha Disc harge Planning Orthopedic Surgery R.NLara in [address] [address] [place], [place] [phone] (Work) [phone] Social History Tobacco Use Types Packs/Day Years [...] yes Apartment/Senior Hi-Rise: no Assisted Living: no Long Term Facility (SNF): no Other: no 4. Description [...] your support? Patient's spouse Relative's home: yes Long Term facility (SNF): no (patient needs to call the SNF and give them their name, surgery date, type of surgery and insurance as ther may be a private cost to them and the nursing homes may not hold a spot for them) Home Care: no Outpatient therapy completed at: [facility] Discharge transportation: yes Plan B: [...] documented as of this encounter Care Teams Electronic Installer Relationship Specialty Start Date End Date Silver Givens M.D., Ph.D. PCP - General Family Medicine 11/10/19 12/09/[address] [place] [phone] documented as of this encounter
--- OUTSIDE RECORDS SUMMARY | 2022-04-11 08:09 | XMS_ITS | Encounter Summary ---
:1940 Author Organization [facility] Address [address] [place] [address] Care Team Providers Name Role Phone Silver Givens M.D., Ph.D. Primary Care Provider [phone] Encounter Details Date Type Department Care Team Description 09/25/2020 Lab Department of Family Deppe, Hailey Mehta Iron Deficiency Medicine, Professional and M.D. Blood Loss Chronic [facility] Center in [address] [address] [place] [address] [phone] Social History Tobacco Use Types Packs/Day Years [...] RNA, V Asymptomatic (09/25/2020 8:31 AM CDT) [facility] Method Time Signature SARS-CoV-2 Swab, 09/25/2020 [...] pe rformed using the Aptima SARS-CoV-2 assay ([employer] on the Subblimes tem under emergency use authorization (EUA) by the U.S. Food and Drug Administ ration. Fact sheets for this EUA assay can be fo und at the following links: For Healthcare Providers: https://www.b5media a.gov/media/926075/download For Patients: https://www.fda.gov/media/ 083851/download Specimen Anatomical Collection Method Collection Time Receive d Time (Source) Location / / Volume Laterality Varies 09/25/2020 8:31 AM 2:56 (Nasopharynx) CDT PM CDT Wood Car M.D. LAB MICROBIOLOGY - GENERAL O RDERABLES Performing Organization Address City/State/ZIP Code Phon e Number [facility]- [address] [place] [address] [phone] [facility] [place] [address] System [address] documented in this encounter Visit Diagnoses Diagnosis Anemia Iron Deficiency Blood Loss Chroni c documented in this encounter Additional Health Concerns Infection Onset Date Last Indicated Resolved Time COVID19 Pending 09/25/2020 09/25/2020 09/25/2020 8:20 PM CDT Assessment Noted Time PHQ-9 Depression Total Score: 2 03/08/2015 11:16 AM CS T documented as of this encounter Care Teams Water Hydrant Installer Relationship Specialty Start Date End Date Silver Givens M.D., Ph.D. PCP - General Family Medicine 11/10/19 12/09/[id number] [address] documented as of this encounter
--- OUTSIDE RECORDS SUMMARY | 2022-04-11 08:09 | XMS_ITS | Encounter Summary ---
:1940 Author Organization [facility] Address [address] [place] [address] Care Team Providers Name Role Phone Silver Givens M.D., Ph.D. Primary Care Provider [phone] Reason for Visit Reason Comments Communication outside referral Encounter Details Date Type Department Care Team Description 09/11/2020 Clinical Department of [place], Communication Communication General Surgery in [facility], (outside referral) Fabricio Kirk L.P.N. [address] [address] [phone] Social History Tobacco Use Types Packs/Day Years [...] Golytely prep from his pharmacy. 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 - 09/11/2020 2:01 PM CDT [facility] Dr. Dontrell Woodward T# [phone] F#[phone] Anemia, unspecified type (D64.9) Gualac positive stools [...] documented as of this encounter Care Teams Title Officer Relationship Specialty Start Date End Date Silver Givens M.D., Ph.D. PCP - General Family Medicine 11/10/19 12/09/[address] [address] documented as of this encounter
--- OUTSIDE RECORDS SUMMARY | 2022-04-11 08:09 | XMS_ITS | Encounter Summary ---
:[address] [facility] Address [address] [place] [address] Care Team Providers Name Role Phone Silver Givens M.D., Ph.D. Primary Care Provider [phone] Reason for Visit Reason Comments Post Hospital Follow-up [facility] Encounter Details Date Type Department Care Team Description 01/27/2020 Clinical Communication Department of Silver Givens [facility] Family Medicine, Marisela, Ph.D. Follow-up ([address]) Clinic, in [address] [address] [facility] [phone] [place], [place] (Work) [phone] Social History Tobacco Use [...] documented as of this encounter Care Teams Bight Maker Relationship Specialty Start Date End Date Silver Givens M.D., Ph.D. PCP - General Family Medicine 11/10/19 12/09/[id number] [place] [phone] documented as of this encounter
--- OUTSIDE RECORDS SUMMARY | 2022-04-11 08:09 | XMS_ITS | Encounter Summary ---
:1940 Author Organization [facility] Address [address] [place] [address] Care Team Providers Name Role Phone Silver Givens M.D., Ph.D. Primary Care Provider [phone] Reason for Visit Auth/Cert Specialty Diagnoses / Procedures Referred By Contact Refer red To Contact Diagnoses Primary Osteoarthritis Shoulder Left Aftercare Total Shoulder Arthroplasty Primary Osteoarthritis Shoulder Left [M19.012] Procedures ARTHROPLASTY TOTAL REVERSE SHOULDER- Referral ID Status Reason Start Date Expiration Date Visits Requ ested Visits Authorized [id number] 1 1 Encounter Details Date Type Department Care Team Description 01/25/2020 Surgery [facility] MAIN OR Marv Dodson, ARTHROPLASTY TOTAL [address] M.D. REVERSE SHOULDER- YARIEL CUMMINS [phone] [address] [phone] [place] [phone] (Wo rk) Social History Tobacco Use Types [...] List Diagnosis ??? Atherosclerotic Heart Disease Of [place] Coronary Artery Without Angina Pectoris ??? Stroke [...] Scheduled Appointments 02/09/2020 10:00 AM Laine Day, PLaraA.-C. Orthopedic Surgery For appointment details refer to [...] left total shoulder replacement on 01/25/[address] [place] [address] Dodson for left shoulder arthritis. [...] INTRAOCULAR LENS; Surgeon: Raymundo Muniz M.D.; Location: [facility] OR ??? EXTRACTION CATARACT WITH INSERTION INTRAOCULAR LENS Left 07/21/2017 Procedure: EXTRACTION CATARACT WITH INSERTION INTRAOCULAR LENS; Surgeon: Raymundo Muniz M.D.; Location: [facility] OR ??? MOHS SURGERY N/A [...] file Gets together: Not on file Attends judaism service: Not on file Active member of [...] Vitamin D #5 Atherosclerotic Heart Disease Of [place] Coronary Artery Without Angina Pectoris #6 Hyperlipidemia [...] List Diagnosis ??? Atherosclerotic Heart Disease Of [place] Coronary Artery Without Angina Pectoris ??? Stroke [...] INTRAOCULAR LENS; Surgeon: Raymundo Muniz M.D.; Location: [facility] OR ??? EXTRACTION CATARACT WITH INSERTION INTRAOCULAR LENS Left 07/21/2017 Procedure: EXTRACTION CATARACT WITH INSERTION INTRAOCULAR LENS; Surgeon: Raymundo Muniz M.D.; Location: [facility] OR ??? MOHS SURGERY N/A 06/23/2006 >Mohs Micrographic Surgery With Layered Closure. ??? 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 Education with home [...] Time (min): 65 min Ana Villagomez O.T. [facility], Third Floor [address] [facility] [address] Dept: [phone] Fortunato Davenport M.D. - 01/25/2020 6:33 PM [...] (HCC) 04/20/2008 ??? Non-ST Elevation Myocardial Infarction ([facility]) 08/15/2018 ??? 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 Post Operative Nausea/Vomiting ??? ST Elevation Myocardial Infarction Of Unspecified Site ([facility]) ??? Stroke ([facility]) PAST SURGICAL HISTORY Past Surgical History: Procedure [...] INTRAOCULAR LENS; Surgeon: Raymundo Muniz M.D.; Location: [facility] OR ??? EXTRACTION CATARACT WITH INSERTION INTRAOCULAR LENS Left 07/21/2017 Procedure: EXTRACTION CATARACT WITH INSERTION INTRAOCULAR LENS; Surgeon: Raymundo Muniz M.D.; Location: [facility] OR ??? 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 Moved in to the town of [facility] with his . Quit smoking [...] List Diagnosis ??? Atherosclerotic Heart Disease Of [place] Coronary Artery Without Angina Pectoris ??? Stroke [...] total shoulder arthroplasty. SURGEON(S) Marv Dodson MD. PROFESSOR OF COMMUNICATION AND WRITING: Laine Day PA-C. I requested Laine to [...] Marv Dodson M.D. CT CT Job ID: [id number] Brief Op Note - Marv Dodson M.D. - 01/25/2020 1:57 PM CDT BRIEF OP NOTE Procedure(s) (LRB): ARTHROPLASTY TOTAL REVERSE SHOULDER- (Left) Surgeon(s) and Role: * Marv Dodson M.D. - Primary * Laine Day P.A.-C. - Rolled Materials Worker Anesthesia Type General with pain block Pre-operative Diagnosis Primary Osteoarthritis Shoulder Left Post-operative Diagnosis Primary Osteoarthritis Shoulder Left Findings As expected. Complications None Specimens None Drains None Estimated Blood Loss 60 mL Implants Implant Name Type Inv. Item Serial No. Retail Manager Lot No. LRB No. Used Action anatomic reverse shoulder screw syssh Shoulder Implant NA [employer] [id number] Left 1 Implanted BSPLT GLND TRB 15 - SNA - [id number] Shoulder Implant BSPLT GLND TRB 15 NA [employer] [id number] [address] FTHRD LCK 4.5X36 - SNA - [id number] Shoulder Implant SCRW PRT ST FTHRD LCK 4.5X36 NA [employer] [id number] Left 1 Implanted COMP GLND TRB 36 - SNA - [id number] Shoulder Implant COMP GLND TRB 36 NA [employer] [id number] Left 1 Implanted humeral stem Shoulder Implant NA [employer] [id number] Left 1 Implanted SHLDR LNR TRB RVRS +0X36 - SNA - [id number] Shoulder Implant SHLDR LNR TRB RVRS +0X36 NA [employer] [id number] Left 1 Implanted Marv Dodson M.D. documented [...] 20 6:21 Venous) CDT AM CDT Ed Cas Davenport M.D. LAB BLOOD ADD-ON Performing Organization Address City/State/ZIP Code Phon e Number [facility]- [address] [place], [place] [address] [facility] [place] [address] System in [place] [address] documented in this encounter Visit [...] 1,000 mg (TYLENOL) 1831 (Given - Provider: Rhodna Abarca R.N.) 0004 (Given - Provider: Desiree [...] documented as of this encounter Care Teams Hot Metal Crane Operator Relationship Specialty Start Date End Date Silver Givens M.D., Ph.D. PCP - General Family Medicine 11/10/19 12/09/[address] [place] [phone] documented as of this encounter
--- OUTSIDE RECORDS SUMMARY | 2022-04-11 08:10 | XMS_ITS | Encounter Summary ---
:1940 Author Organization [facility] Address [address] [place] [address] Care Team Providers Name Role Phone Elsewhere, Pcp Primary Care Provider Unavailable Reason for Referral Outpatient (Routine) - Closed Specialty Diagnoses / Procedures Referred By Contact Yeimi pemberton To Contact Diagnoses Bursitis Subacromial Left Marv Dodson M.D. [facility] [place] [facility] Procedures wls-vunl-mlyjqrps-elbow arthrocentesis: L subacromial bursa [address] [place] [address] Referral ID Status Reason Start Date Expiration Date Visits Requ ested Visits Authorized [id number] Closed 03/01/2019 02/29/2020 1 1 Reason for Visit Appointment Request (Routine) - Closed Specialty Diagnoses / Procedures Referred By Contact Yeimi pemberton To Contact Orthopedic Surgery Referral ID Status Reason Start Date Expiration Date Visits Requ ested Visits Authorized [id number] Closed 01/26/2019 01/26/2020 1 Encounter Details Date Type Department Care Team Description 03/01/2019 Office Visit Department of Marv Dodson, Bursitis Subacromial Orthopedic Surgery in [place] Left (Primary Dx) [place], [place] [address] [place] [phone] Social History Tobacco Use Types Packs/Day Years [...] M.D. - 03/01/2019 9:30 AM CDTAssociated Order(s): mhy-hqao-kzltrvby-elbow arthrocentesis: L subacromial bursa Post-Procedure Diagnose(s): Bursitis [...] Name Priority Date/Time Associated Diagnosis Comme nts [facility] ASP/INJ Routine 03/01/2019 9:30 AM Bursitis Subacrom ial Results for this [facility] JT WO US CDT Left procedure are i n the results section. documented in this encounter Results [facility] ASP/INJ [facility] JT WO US (03/01/2019 [...] documented as of this encounter Care Teams Biofuels Product Manager Relationship Specialty Start Date End Date Elsewhere, Pcp PCP - General Internal Medicine 08/17/18 11/09/19 documented as of this encounter
--- OUTSIDE RECORDS SUMMARY | 2022-04-11 08:10 | XMS_ITS | Encounter Summary ---
:1940 Author Organization [facility] Address [address] [place] [address] Care Team Providers Name Role Phone Unavailable Primary Care Provider Unavailable Reason for Visit Reason Comments Nausea Pt presents with nausea, gen eralized weakness and new confusion per family. Encounter Details Date Type Department Care Team Description 08/14/2018 - Emergency [place] Edgar Dodson Non-ST Iraida vation 08/15/2018 Emergency Department Titi Nunez M.D. 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 Will give pt asa 324 mg [...] CPR performed ED Course as of Aug 2357 Cbc nl with slight neutrophilia, trop 222, tsh nl, ptt nl, crp 0.9, total bili 1.7, alk phos 173, ast 54, lipase 31 2359 Cxr negative - my read Ekg - rate 63, nl intervals, no st or t wave changes, nsr, pvc Final Diagnoses: as of Aug Non-ST Elevation Myocardial Infarction (HCC) Edgar Dodson [...] CDT) P athologist Signature Source Midstream 08/15/2018 [facility] 12:16 AM [facility] Clarity Clear Clear 08/15/2018 [facility] 12:16 AM [facility] Color Yellow 08/15/2018 [facility] 12:16 AM T [facility] Comment: ----REFERENCE VALUE---- Colorless Yellow Isabel Blood Negative Negative 08/15/2018 12:16 AM [place] [employer] [facility] Nitrite Negative Negative 08/15/2018 12:16 AM [place] [employer] [facility] Leukocyte Esterase Moderate (A) Negative 08/15/2018 12:1 6 AM [facility] [employer] [facility] Protein 30 (A) mg/dL 08/15/2018 12:16 AM [place] [employer] [facility] Comment: ----REFERENCE VALUE---- Negative Trace Glucose Negative Negative mg/dL 08/15/2018 12:16 AM [facility] Ketones, QI(U) 15 (A) Negative mg/dL 08/15/2018 12:16 AM [facility] Bilirubin Negative Negative 08/15/2018 12:[address] [facility] pH 6.0 5.0 - 8.0 08/15/2018 12:[address] [facility] Specific [place] 1.020 1.001 - 1.035 08/15/2018 12:17 AM [facility] Urobilinogen 0.2 0.2 - 1.0 mg/dL 08/15/2018 12:17 AM [facility] White Blood Cells 21-30 (A) /hpf 08/15/2018 12:55 AM [facility] [employer] [facility] Comment: ----REFERENCE VALUE---- Males: 0-3 Females: 0-10 Unknown: 0-10 Red Blood Cells 3-10 (A) 0 - 2 /hpf 08/15/2018 12:55 [facility] LINIC [facility] Dysmorphic Red Blood <=25 <=25 % 08/15/2018 12:55 [facility] Cells [facility] Hyaline Casts 1-3 /lpf 08/15/2018 12:55 [place] [facility] Crystals Amorphous (A) None Seen 08/15/2018 12:55 [place] [facility] /lpf [facility] Squamous Cells Occ-3 /hpf 08/15/2018 12:55 [place] [facility] Transitional Cells Occ-3 (A) None Seen 08/15/2018 12:55 [facility] /[facility] Specimen (Source) Anatomical Collection Method Collection Time Re ceived Time Location / / Volume Laterality Urine (Urine, 08/15/2018 08/15/2018 12: 13 Clean Catch) [facility] Edgar Dodson Jr., M.D. LAB URINE ORDERABLES Performing Organization Address City/State/ZIP Code Phon e Number [facility] [id number] [address] [place] [facility] DX Chest Portable 1 View (08/14/2018 [...] Dodson Jr., M.D. IMG DIAGNOSTIC IMAGING P ROCEDURES CRP (C-Reactive Protein) (08/14/2018 10:34 PM CDT) athologist Signature C-Reactive 0.9 <=8.0 mg/L 08/14/2018 [facility] Protein (CRP), 11:05 PM CDT [facility] [place] [facility] Specimen Anatomical Collection Method Collection Time Receive d Time (Source) Location / / Volume Laterality Blood (Blood, 08/14/2018 10:34 08/14/2018 Venous) PM CDT 10:37 PM CDT Edgar Dodson Jr., M.D. LAB BLOOD ADD-ON Performing Organization Address City/State/ZIP Code Phon e Number [facility]- [address] [address] [place] [facility] APTT (Activated Partial Thromboplastin Time) (08/14/2018 10:33 PM CDT) athologist Signature APTT, P 27.4 23.7 - 36.1 08/14/2018 [facility] sec 11:54 PM CDT [facility] Specimen Anatomical Collection Method Collection Time Receive d Time (Source) Location / / Volume Laterality Blood (Blood, 08/14/2018 10:33 08/14/2018 Venous) PM CDT 11:45 PM CDT Edgar Dodson Jr., M.D. LAB BLOOD ADD-ON Performing Organization Address City/[facility] Code Phon e Number [address] [address] [place] [facility] Lipase (08/14/2018 10:33 PM CDT) athologist Signature Lipase, P 31 13 - 60 U/L 08/14/2018 [facility] 11:04 PM CDT [facility] Specimen Anatomical Collection Method Collection Time Receive d Time (Source) Location / / Volume Laterality Blood (Blood, 08/14/2018 10:33 08/14/2018 Venous) PM CDT 10:37 PM CDT Edgar Dodson Jr., M.D. LAB BLOOD ADD-ON Performing Organization Address [facility] Phon e Number [address] [address] [place] [facility] Methylmalonic Acid (MMA), Quantitative (08/14/2018 10:33 PM CDT) [facility] gist Method Time Signature Methylmalonic 0.19 <=0.40 08/18/2018 [facility] Acid, QN, S nmol/mL 8:13 AM CDT LABORATORIES - [facility] Comment: ----ADDITIONAL INFORMATION---- This test was developed and its performa nce characteristics determined by [facility] in a manner consistent with CLIA requirements. This test has not been cleared or approved by the [place] d and Drug Administration. Specimen Anatomical Collection Method Collection Time Receive d Time (Source) Location / / Volume Laterality Blood (Blood, 08/14/2018 10:33 08/16/2018 Venous) PM CDT 11:50 AM CDT Edgar Dodson Jr., M.D. LAB BLOOD ADD-ON Performing Organization Address City/[facility]/ZIP Code Phon e Number [facility] LABORATORIES - [address] [place], [place] [address] [facility] Vitamin B12 Assay (08/14/2018 10:33 PM CDT) athologist Signature Vitamin B12 [phone] 0908 08/15/2018 [facility] Assay, S ng/L 2:49 PM CDT [facility] Comment: Biotin has been identified [...] M.D. LAB BLOOD ADD-ON Performing Organization Address City/[facility] Code Phon e Number [facility] [address] [facility] [address] [facility] (ABNORMAL) Troponin T, 5th Generation (08/14/2018 10:33 PM CDT) athologist Signature Troponin T, 222 (H) <=15 ng/L 08/14/2018 [facility] 5th gen 10:56 PM CDT [facility] Comment: Consider acute myocardial injury Biotin [...] Address City/State/ZIP Code Phon e Number [address] [address] [place] [facility] Thyroid Function [facility] (08/14/2018 10:33 PM CDT) athologist Signature TSH, Sensitive 1.9 0.3 - 4.2 08/14/2018 [facility] mIU/L 11:07 PM CDT [facility] Comment: Biotin has been identified by the [place] as a potential interfering substance. ??Higher concentr ations of biotin may be found in multivitamins, hair/nail supple ments, and workout supplements. ??If the result does not ma tch clinical observations, repeat testing after patient refrains fr om the use of supplements for at least 12 hours. Specimen Anatomical Collection Method Collection Time Receive d Time (Source) Location / / Volume Laterality Blood (Blood, 08/14/2018 10:33 08/14/2018 Venous) PM CDT 10:37 PM CDT Edgar Dodson Jr., M.D. LAB BLOOD ADD-ON Performing Organization Address City/[facility] Phon e Number [address] [address] [place] [facility] (ABNORMAL) Comprehensive Metabolic Panel (08/14/2018 10:33 PM CDT) athologist Signature Potassium, P 4.1 3.6 - 5.2 08/14/2018 [facility] mmol/L 11:04 PM CDT [facility] Sodium, P 139 135 - 145 08/14/2018 [facility] mmol/L 11:04 PM CDT [facility] Chloride, P 98 98 - 107 08/14/2018 [facility] mmol/L 11:04 PM T [facility] Bicarbonate, P 26 22 - 29 08/14/2018 [facility] mmol/L 11:04 PM T [facility] Anion Gap, P 15 7 - 15 08/14/2018 [facility] 11:04 PM T [facility] BUN (Blood Urea 15 8 - 24 08/14/2018 [facility] Nitrogen), P mg/dL 11:04 PM T [facility] Creatinine 1.07 0.74 - 08/14/2018 [facility] 1.35 mg/dL 11:04 PM [facility] eGFR-Black/Afri 77 >=60 08/14/2018 [facility] can [place] mL/min/BSA 11:04 [facility] Comment: ----ADDITIONAL INFORMATION---- Estimated GFR calculated using the 2009 CKD_EPI creatinine equation. eGFR Non-Black/ 67 >=60 mL/min/BSA 08/14/2018 11:04 PM [facility] [place] [facility] Comment: ----ADDITIONAL INFORMATION---- Estimated GFR calculated using the 2009 CKD_EPI creatinine equation. Calcium, Total, P 10.2 8.8 - 10.2 08/14/2018 11:04 PM [facility] mg/dL [facility] Glucose, P 120 70 - 140 mg/dL 08/14/2018 11:04 PM [facility] Protein, Total, P 8.0 (H) 6.3 - 7.9 g/dL 08/14/2018 11:04 PM [facility] Albumin, P 4.9 3.5 - 5.0 g/dL 08/14/2018 11:04 PM [facility] Aspartate 54 (H) 8 - 48 U/L 08/14/2018 11:04 PM [facility] IC Aminotransferase (AST), P [facility] Alkaline Phosphatase, P 173 (H) 40 - 129 U/L 08/14/2018 11 :04 PM [facility] Alanine Aminotransferase 29 7 - 55 U/L 08/14/2018 11: 04 PM [facility] (ALT), P [facility] Bilirubin, Total, P 1.7 (H) <=1.2 mg/dL 08/14/2018 11:04 P [facility] Specimen Anatomical Collection Method Collection Time Receive d Time (Source) Location / / Volume Laterality Blood (Blood, 08/14/2018 10:33 08/14/2018 Venous) PM CDT 10:37 PM CDT Edgar Dodson Jr., M.D. LAB BLOOD ADD-ON Performing Organization Address City/State/ZIP Code Phon e Number [facility]- [address] [place] [phone] [place] [facility] (ABNORMAL) CBC with Differential, Blood (08/14/2018 10:33 PM CDT) [facility] Method Time Signature Hemoglobin 15.8 13.2 - 08/14/2018 [facility] 16.6 g/dL 10:43 PM CDT [facility] Hematocrit 46.1 38.3 - 08/14/2018 [facility] 48.6 % 10:43 PM CDT [facility] Erythrocytes 5.19 4.35 - 08/14/2018 [facility] 5.65 10:43 PM CDT HEALTH x10(12)/L [facility] MCV 88.8 78.2 - 08/14/2018 [facility] 97.9 fL 10:43 PM T [facility] RBC Distrib Width 13.8 11.8 - 08/14/2018 [facility] 14.5 % 10:43 PM CDT [facility] Platelet Count 218 135 - 317 08/14/2018 [facility] x10(9)/L 10:43 PM CDT [facility] Leukocytes 8.6 3.4 - 9.6 08/14/2018 [facility] x10(9)/L 10:43 PM T [facility] Neutrophils 7.44 (H) 1.56 - 08/14/2018 [facility] 6.45 10:43 PM CDT HEALTH x10(9)/L [facility] Lymphocytes 0.88 (L) 0.95 - 08/14/2018 [facility] 3.07 10:43 PM CDT HEALTH x10(9)/L [facility] Monocytes 0.21 (L) 0.26 - 08/14/2018 [facility] 0.81 10:43 PM CDT HEALTH x10(9)/L [facility] Eosinophils 0.02 (L) 0.03 - 08/14/2018 [facility] 0.48 10:43 PM CDT HEALTH x10(9)/L [facility] Basophils 0.01 0.01 - 08/14/2018 [facility] 0.08 10:43 PM CDT HEALTH x10(9)/L [facility] [employer] LAB Specimen Anatomical Collection Method Collection Time Receive d Time (Source) Location / / Volume Laterality Blood (Blood, 08/14/2018 10:33 08/14/2018 Venous) PM CDT 10:37 PM CDT Edgar Dodson Jr., M.D. LAB BLOOD ADD-ON Performing Organization Address City/State/ZIP Code Phon e Number [facility]- [address] [address] [place] [facility] CT Head without IV Contrast (08/14/2018 [...] Signature Ventricular Rate 63 BPM MUSE ECG/Min GA Interval 174 ms MUSE QRSD Interval 84 ms MUSE QT Interval 438 ms MUSE QTC Interval 448 ms MUSE P [place] 47 degrees MUSE R [place] -2 degrees MUSE T Wave [place] 54 degrees MUSE Specimen Anatomical Collection Method [...] - Provider: Katia Virk R.N. - Comment: [id number]) 0-40 Units/kg/hr ? 66.1 kg Dosing weight [...]
--- OUTSIDE RECORDS SUMMARY | 2022-04-11 08:10 | XMS_ITS | Encounter Summary ---
:1940 Author Organization [facility] Address [address] [place] [address] Care Team Providers Name Role Phone Elsewhere, Pcp Primary Care Provider Unavailable Reason for Visit Reason Comments Pain Outpatient (Routine) - Closed Specialty Diagnoses / Procedures Referred By Contact Refer red To Contact Orthopedic Surgery Diagnoses Tear Rotator Cuff Complete Non Trauma Left Laila Loco, [facility] [address] [place] [address] Referral ID Status Reason Start Date Expiration Date Visits Requ ested Visits Authorized [id number] Closed 08/24/2018 08/24/2019 1 1 Encounter Details Date Type Department Care Team Description 08/27/2018 Comprehensive Visit Department of Jessica Duenas Ro tator Cuff Orthopedic Surgery Marisela Fair Complete Non Trauma in [address] Left [place], [place] [address] [facility] [address] [place], [place] [phone] (Work) [phone] Social History Tobacco Use Types Packs/Day Years [...] Tear Rotator Cuff Complete Non Trauma Left Mrz-ickb-xpxxfqai-elbow arthrocentesis Date/Time: 08/27/2018 1:57 PM Performed by: MARV DUENAS Authorized by: MARV DUENAS Care team members present: [place] Paper Maker utilized: historic interpreter not needed Risks discussed with: patient Procedural [...] Diagnosis Comme nts TN ARTHCS ASP/INJ Routine 08/27/2018 2:00 PM Tear Rotator Cuff Results for this MJR JT WO US CDT Complete Non Trauma procedur e are in Left the results section. documented in this encounter Results TN ARTHCS ASP/INJ MJR JT WO US (08/27/2018 2:00 PM CDT) Narrative [facility] - 08/27/2018 2:00 PM CDT Marv Duenas M.D. ? 08/28/2018 ??8:20 AM Hga-akei-dukzvfyj-elbow arthrocentesis Date/Time: 08/27/2018 1:57 PM Performed by: MARV DUENAS Authorized by: MARV DUENAS Care team members present: ??West Paper Maker utilized: historic interpreter not ne eded ?? Risks discussed with: [...] documented as of this encounter Care Teams Cryptologic Support Specialist Relationship Specialty Start Date End Date Elsewhere, Pcp PCP - General Internal Medicine 08/17/18 11/09/19 documented as of this encounter
--- OUTSIDE RECORDS SUMMARY | 2022-04-11 08:10 | XMS_ITS | Encounter Summary ---
:1940 Author Organization [facility] Address [address] [place] [address] Care Team Providers Name Role Phone Silver Givens M.D., Ph.D. Primary Care Provider [phone] Reason for Visit Reason Comments Medication Visit recheck Encounter Details Date Type Department Care Team Description 12/14/2019 Office Visit Department of Family Silver Givens, Pain Shoulder Left (Primary Dx); MedicineMargarito M.D., Ph.D. 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; [place], [facility] Hyperlipidemia; [place], [place] Peripheral Vascular Disease (HCC); [address] [place] [address] [address] [address] Polymyalgia Rheumatica (HCC) [place], [place] [phone] [address] (Work) [phone] Social History Tobacco Use Types Packs/Day Years [...] orthopedic evaluation #2 Atherosclerotic Heart Disease Of [place] Coronary Artery Without Angina Pectoris Continue current [...] Left - Primary Atherosclerotic Heart Disease Of [place] Coronary Artery Without Angina Pectoris Hypertensive Heart Disease Without Heart Failure Hyperlipidemia Peripheral Vascular Disease (HCC) Polymyalgia Rheumatica (HCC) documented in this encounter Additional Health Concerns Assessment Noted Time PHQ-9 Depression Total Score: 2 03/08/2015 11:16 AM CS T documented as of this encounter Care Teams Layout Worker Relationship Specialty Start Date End Date Silver Givens M.D., Ph.D. PCP - General Family Medicine 11/10/19 12/09/[id number] [address] documented as of this encounter
--- OUTSIDE RECORDS SUMMARY | 2022-04-11 08:10 | XMS_ITS | Encounter Summary ---
:1940 Author Organization [facility] Address [address] [place] [address] Care Team Providers Name Role Phone Elsewhere, Pcp Primary Care Provider Unavailable Reason for Visit Reason Onset Date Comments cardiac rehab referral 08/17/2018 Encounter Details Date Type Department Care Team Description 08/17/2018 Clinical Department of Greg, cardiac rehab Communication Cardiovascular Sophia Soares, referral Medicine in [place], [place] [address] [facility] [address] [place] [phone] [phone] Social History Tobacco Use Types Packs/Day Years Used Date Smoking Tobacco: Former Smokeless Tobacco: Never Alcohol Use Standard Drinks/Week Comments No 0 (1 standard drink = 0.6 oz pure alcoho l) Sex Assigned at Date Recorded Not on file documented as of this encounter Miscellaneous Notes Telephone Encounter - Sophia Garza, [facility] - 08/17/2018 11:22 AM CDT [...] referral if participation is recommended. 2. Eligibility: [place] and [place] 3. Exceptions/exclusions: None 4. Referral: [...] documented as of this encounter Care Teams Installation And Service Technician Relationship Specialty Start Date End Date Elsewhere, Pcp PCP - General Internal Medicine 08/17/18 11/09/19 documented as of this encounter
--- OUTSIDE RECORDS SUMMARY | 2022-04-11 08:10 | XMS_ITS | Encounter Summary ---
:1940 Author Organization [facility] Address [address] [place] [address] Care Team Providers Name Role Phone Unavailable Primary Care Provider Unavailable Encounter Details Date Type Department Care Team Description 08/13/2018 Hospital Encounter Department of Laila Loco, [facility] Cervical Radiology in [place], [place] [address] [address] [place], [place] [phone] (W ork) [address] [phone] Social History Tobacco Use Types Packs/Day Years [...] metFORMIN (GLUCOPHAGE) Take 1-2 tablets by 0 /0 05/201301/21/2020 500 mg tablet mouth 2 (two) times a day. metoprolol succinate Take 0.5 tablets by 0 201408/16/2018 (for_TOPROL-XL) 12.5 mg mouth daily. Patient 24 hr tablet confirmed he was taking 0.5 tablet 1xday, however, Rx fill history suggests that it was the tartrate formulation. metoprolol tartrate 0 06/23/201708/15 (for_LOPRESSOR) 25 mg tablet czzzjxfntlkq-rglyhnzz-beg Take 1 tablet by 0 06/0608/15/2018 ifrah [...] Magnetic Resonance Neuroradiology ARZ LOS, Neuroradiology FLA LOS Specimen (Source) Anatomical [...] disc endplate spurring. Additional level by l evel change is detailed below: Skull base-C2: ??Anterior [...] disc endplate spurring. Additional level by l evel change is detailed below: Skull base-C2: Anterior [...]
--- OUTSIDE RECORDS SUMMARY | 2022-04-11 08:10 | XMS_ITS | Encounter Summary ---
:1940 Author Organization [facility] Address [address] [place] [address] Care Team Providers Name Role Phone Silver Givens M.D., Ph.D. Primary Care Provider [phone] Encounter Details Date Type Department Care Team Description 12/15/2019 Hospital Encounter Department of West, Primary Osteoarthritis Radiology in [place] Fair M.D. [place] [address] [place] [phone] Social History Tobacco Use Types Packs/Day Years [...] documented as of this encounter Care Teams Frame Repairer Relationship Specialty Start Date End Date Silver Givens M.D., Ph.D. PCP - General Family Medicine 11/10/19 12/09/[address] [place] [id number] documented as of this encounter
--- OUTSIDE RECORDS SUMMARY | 2022-04-11 08:10 | XMS_ITS | Encounter Summary ---
:1940 Author Organization [facility] Address [address] [place] [address] Care Team Providers Name Role Phone Unavailable Primary Care Provider Unavailable Encounter Details Date Type Department Care Team Description 08/15/2018 - Hospital Encounter [facility] Melanie Calderon M.B., B.Ch. [address] [place] [phone] Non-ST Elevation 08/16/2018 [facility], Tom Vines M.D., Ph.D. [address] [place] [phone] [facility] Infarction (HCC) [facility], (Primary Dx) Fifth Floor [address] [place] [phone] Social History Tobacco Use Types Packs/Day Years [...] Case IDs Date Procedure Surgeon Location Status [id number] 08/15/18 Coronary Angiography Jacques Barraza M.D. RST [...] started on heparin drip and transferred to [facility] for further management of NSTEMI. He [...] exam, and recommendations by Dr. Meier. #1 Pks-MQ-[id number] myocardial infarction Mr. Vines will continue with [...] with the plan. CT CT Job ID: [id number]/romano documented in this encounter H&P Notes Tom [...] intravenous heparin. 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 Monk and Dr. Corral. #1 Pgi-FX-iqcczydpe myocardial infarction Mr. Vines was preloaded with [...] with the plan. CT CT Job ID: [id number]/[facility] Reji Espitia M.D. - 08/15/2018 8:47 AM [...] focal neurologic complaints. In the ED in [place], he was noted to have stable vitals [...] on heparin gtt prior to transfer to [facility]. Upon arrival, he is hemodynamically stable [...] focal neurologic complaints. In the ED in [place], he was noted to have stable vitals [...] on heparin gtt prior to transfer to [facility]. Upon arrival, he is hemodynamically stable and chest pain free. 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 He also has history of TIA in 2000 for which he underwent left CEA. CARDIAC [...] male with a history of CAD s/p KS and stent placement (mid-RCA, 2011), hyperlipidemia, and [...] ED physician spoke with Dr. Calderon at [facility] for recommendations and was suggested to treat his NSTEMI with aspirin 324 mg oral, Plavix 300 mg oral, and start a heparin bolus and drip. The was then transferred to [facility] via ambulance for further management of [...] GERD, hyperlipidemia, ischemic stroke, CAD status post KS and stent placement - Surgical history: Carotid [...] ASSESSMENT/PLAN #1 NSTEMI #2 Coronary artery disease, KS s/p stent to mid-RCA (2011) #3 Ischemic stroke s/p carotid enterectomy #4 Hyperlipidemia Mr. Vines is a 78 y/o male with a history of CAD s/p KS and stent placement (mid- RCA, 2011) and [...] Summary: Education complete. Pt will d/c to [facility] [facility]. No further questions CARDIOVASCULAR - ADULT ??? [...] Implant Name Type Inv. Item Serial No. Front Desk Manager Lot No. LRB No. Used Action STNT SYNERGY SHAHAB [id number] - [id number] Cardiac Stent STNT SYNERGY SHAHAB [id number] [employer] [id number] N/A 1 Implanted Antiplatelet regimen: Aspirin 81 [...] Jung Castro M.D., M.P.H. Interventional and Structural Lead Mechanical Engineer [facility] 08/15/18 9:53 AM documented in this encounter [...] started on heparin drip and transferred to [facility] for further management of NSTEMI. He [...] Basic Metabolic Panel (08/16/2018 7:44 AM CDT) [employer] Method Time Signature Potassium, S 4.2 3.6 - 5.2 08/16/2018 [facility] mmol/L 8:51 AM CDT LABORATORIES [facility] Sodium, S 141 135 - 145 08/16/2018 [facility] mmol/L 8:51 AM CDT LABORATORIES [facility] Chloride, S 102 98 - 107 08/16/2018 [facility] mmol/L 8:51 AM CDT LABORATORIES [facility] Bicarbonate, S 23 22 - 29 08/16/2018 [facility] mmol/L 8:51 AM CDT LABORATORIES [facility] Anion Gap 16 (H) 7 - 15 08/16/2018 [facility] 8:51 AM CDT LABORATORIES [facility] BUN (Blood Urea 16 8 - 24 08/16/2018 [facility] Nitrogen), S mg/dL 8:51 AM T [facility] Creatinine 1.18 0.74 - 08/16/2018 [facility] 1.35 mg/dL 8:51 AM CDT LABORATORIES [facility] eGFR-Non 59 (L) >=60 08/16/2018 [facility] Black/ mL/min/BSA 8:51 AM CDT LABORATORIES [facility] Comment: ----ADDITIONAL INFORMATION---- Estimated GFR calculated using the 2009 CKD_EPI creatinine equation. eGFR-Black/ 68 >=60 mL/min/BSA 08/16/2018 8:51 [facility] CDT [facility] Comment: ----ADDITIONAL INFORMATION---- Estimated GFR calculated using the 2009 CKD_EPI creatinine equation. Calcium, Total, S 9.5 8.8 - 10.2 mg/dL 08/16/2018 8:51 AM [facility] CDT [facility] S Glucose, S 100 70 - 140 mg/dL 08/16/2018 8:51 AM [facility] Specimen Anatomical Collection Method Collection Time Receive d Time (Source) Location / / Volume Laterality Blood (Blood, 08/16/2018 7:44 AM 08/17/19 19 8:16 Venous) CDT AM CDT Tom Johnson M.D., Ph.D. LAB BLOOD ADD-ON Performing Organization Address City/State/ZIP Code Phon e Number [facility] - [address] [place], [place] [address] [facility] CBC with Differential, Blood (08/16/2018 7:44 AM CDT) [employer] Method Time Signature Hemoglobin 15.2 13.2 - 08/16/2018 [facility] 16.6 g/dL 8:21 AM CDT LABORATORIES - [facility] Hematocrit 44.7 38.3 - 08/16/2018 [facility] 48.6 % 8:21 AM CDT LABORATORIES - [facility] Erythrocytes 4.99 4.35 - 08/16/2018 [facility] 5.65 8:21 AM CDT LABORATORIES - x10(12)/L [facility] MCV 89.6 78.2 - 08/16/2018 [facility] 97.9 fL 8:21 AM CDT LABORATORIES - [facility] RBC Distrib Width 14.1 11.8 - 08/16/2018 [facility] 14.5 % 8:21 AM CDT LABORATORIES - [facility] Platelet Count 231 135 - 317 08/16/2018 [facility] x10(9)/L 8:21 AM CDT LABORATORIES - [facility] Leukocytes 8.1 3.4 - 9.6 08/16/2018 [facility] x10(9)/L 8:21 AM CDT LABORATORIES - [facility] Neutrophils 5.20 1.56 - 08/16/2018 [facility] 6.45 8:21 AM CDT LABORATORIES - x10(9)/L [facility] Lymphocytes 2.03 0.95 - 08/16/2018 [facility] 3.07 8:21 AM CDT LABORATORIES - x10(9)/L [facility] Monocytes 0.60 0.26 - 08/16/2018 [facility] 0.81 8:21 AM CDT LABORATORIES - x10(9)/L [facility] Eosinophils 0.20 0.03 - 08/16/2018 [facility] 0.48 8:21 AM CDT LABORATORIES - x10(9)/L [facility] Basophils 0.04 0.01 - 08/16/2018 [facility] 0.08 8:21 AM CDT LABORATORIES - x10(9)/L [facility] Specimen Anatomical Collection Method Collection Time Receive d Time (Source) Location / / Volume Laterality Blood (Blood, 08/16/2018 7:44 AM 08/17/19 19 8:16 Venous) CDT AM CDT Tom S Johnson M.D., Ph.D. LAB BLOOD ADD-ON Performing Organization Address City/[facility]/ZIP [facility] [place] Number [facility] LABORATORIES - [address] [place] [address] [facility] (ABNORMAL) Troponin T, 6H, 5th Gen (08/15/2018 12:37 PM CDT) Patholo gist Method Time Signature Troponin T, 6 433 (H) <=15 ng/L 08/15/2018 [facility] hr, 5th gen 1:09 PM CDT LABORATORIES - [facility] Comment: Consider acute myocardial injur y 6H Delta 127 ng/L 08/15/2018 1:09 PM CDT [facility] IN LABORATORIES [facility] 6H Delta Interp Changing 08/15/2018 1:09 PM CDT [facility] Comment: Evaluate for acute myocardial i njury Specimen Anatomical Collection Method Collection Time Receive d Time (Source) Location / / Volume Laterality Blood 08/15/2018 12:37 08/15/2018 PM CDT 12:43 PM CDT Darvin Corral M.D. LAB BLOOD TROPONIN Performing Organization Address [facility] Code Phon e Number [facility] LABORATORIES - [address] [place] [address] [facility] Heparin Anti-Xa Assay (08/15/2018 11:00 AM CDT) P athologist Signature Heparin 1.62 IU/mL 08/15/2018 [facility] Anti-Xa, P 12:53 PM CDT [facility] Comment: UFH therapeutic range: ?? [...] City/State/ZIP Code Phon e Number [facility] LABORATORIES - [address] [place], [place] [address] [facility] CORONARY ANGIOGRAPHY, STENT PLACEMENT, PERCUTANEOUS [...] Code Phon e Number POC RST [facility] INPATIENT LABS [address] [facility] [place] [address] (ABNORMAL) ACT (Activated Clotting Time), POCT (08/15/2018 [...] City/State/ZIP Code Phon e Number POC RST [facility] INPATIENT LABS [address] [facility] [address] Bilirubin, Direct (08/15/2018 6:00 AM CDT) P athologist Signature Bilirubin, 0.2 0.0 - 0.3 08/15/2018 [facility] Direct, S mg/dL 8:25 AM CDT LABORATORIES - [facility] Specimen Anatomical Collection Method Collection Time Receive d Time (Source) Location / / Volume Laterality Blood (Blood, 08/15/2018 6:00 AM 08/16/19 19 6:20 Venous) CDT AM CDT Vaughn Rader M.D., Ph.D. LAB BLOOD ADD-ON Performing Organization Address City/State/ZIP Code Phon e Number [facility] LABORATORIES - [address] [place], [place] [address] [facility] (ABNORMAL) Comprehensive Metabolic Panel (08/15/2018 6:00 AM CDT) Patholo gist Method Time Signature Potassium, S 4.5 3.6 - 5.2 08/15/2018 [facility] mmol/L 8:25 AM CDT LABORATORIES - [facility] Sodium, S 144 135 - 145 08/15/2018 [facility] mmol/L 8:25 AM CDT LABORATORIES - [facility] Chloride, S 102 98 - 107 08/15/2018 [facility] mmol/L 8:25 AM CDT LABORATORIES - [facility] Bicarbonate, S 24 22 - 29 08/15/2018 [facility] mmol/L 8:25 AM CDT LABORATORIES - [facility] Anion Gap 18 (H) 7 - 15 08/15/2018 [facility] 8:25 AM CDT LABORATORIES - [facility] BUN (Blood Urea 14 8 - 24 08/15/2018 [facility] Nitrogen), S mg/dL 8:25 AM CDT LABORATORIES - [facility] Creatinine 1.14 0.74 - 08/15/2018 [facility] 1.35 mg/dL 8:25 AM CDT LABORATORIES - [facility] eGFR-Non 62 >=60 08/15/2018 [facility] Black/ mL/min/BSA 8:25 AM CDT LABORATORIES - [place] [facility] Comment: ----ADDITIONAL INFORMATION---- Estimated GFR calculated using the 2009 CKD_EPI creatinine equation. eGFR-Black/ 71 >=60 mL/min/BSA 08/15/2018 8:25 [facility] CDT LAB[facility]ATORIES [facility] Comment: ----ADDITIONAL INFORMATION---- Estimated GFR calculated using the 2009 CKD_EPI creatinine equation. Calcium, Total, S 9.6 8.8 - 10.2 08/15/2018 8:25 [facility] mg/dL AM CDT LABORATORIES [facility] Glucose, S 102 70 - 140 08/15/2018 8:25 [facility] mg/dL AM CDT LABORATORIES [facility] Protein, Total, S 6.4 6.3 - 7.9 08/15/2018 8:[address] [facility] LINIC g/dL AM CDT LABORATORIES [facility] Albumin, S 4.3 3.5 - 5.0 08/15/2018 8:25 [facility] g/dL CDT [facility] Aspartate 62 (H) 8 - 48 U/L 08/15/2018 8:25 [facility] Aminotransferase (AST), AM CDT LABORA TORIES - S [facility] Alkaline Phosphatase, S 142 (H) 40 - 129 U/L 08/15/2018 8: 25 [facility] CDT LABORATORIES [facility] Alanine Aminotransferase 25 7 - 55 U/L 08/15/2018 8:2 5 [facility] (ALT), [facility] Bilirubin, Total, S 1.2 <=1.2 mg/dL 08/15/2018 8:25 [facility] CDT [facility] Specimen Anatomical Collection Method Collection Time Receive d Time (Source) Location / / Volume Laterality Blood (Blood, 08/15/2018 6:00 AM 08/16/19 19 6:20 Venous) CDT AM CDT Vaughn Rader M.D., Ph.D. LAB BLOOD ADD-ON Performing Organization Address City/State/ZIP Code Phon e Number [facility] - [address] [place], [place] [address] [facility] (ABNORMAL) Troponin T, 2H/6H, 5th Gen (08/15/2018 6:00 AM CDT) [employer] Method Time Signature Troponin T, 2 366 (H) <=15 ng/L 08/15/2018 [facility] hr, 5th gen 6:38 AM CDT LABORATORIES - [facility] Comment: Consider acute myocardial injur y 2H Delta 60 ng/L 08/15/2018 6:38 AM CDT [facility] 2H Delta Interp Changing 08/15/2018 6:38 AM CDT [facility] Comment: Evaluate for acute myocardial i njury Troponin T, 6 hr, 5th CANCELED ng/L 08/15/2018 11: 23 AM [facility] gen CDT - [facility] Comment: Hemolyzed redraw requested Result canceled by the ancillary Specimen Anatomical Collection Method Collection Time Receive d Time (Source) Location / / Volume Laterality Blood (Blood, 08/15/2018 6:00 AM 08/16/19 6:07 Venous) CDT AM CDT Narrative [facility] - 08/15/2018 11:25 AM CDT Specimen Information: Specimen ID: [id number] Specimen Type: Blood Specimen Collection Start Date: 08/16/19 ??6:00 AM Specimen Received Date: 08/15/2018 ??6:0 7 AM Specimen ID: [id number] Specimen Type: Blood Specimen Collection Start Date: 08/16/19 11:00 AM Specimen Received Date: 08/15/2018 11:08 AM Vaughn Rader M.D., Ph.D. LAB BLOOD TROPONIN Performing Organization Address City/[facility] Phon e Number [facility] - [address] [place], [place] [address] [facility] (ABNORMAL) Troponin T, Baseline, 5th gen (08/15/2018 4:23 AM CDT) [employer] Method Time Signature Troponin T, 306 (H) <=15 ng/L 08/15/2018 [facility] Baseline, 5th 4:50 AM CDT LABORATORIES [facility] Comment: Consider acute myocardial injur y Specimen Anatomical Collection Method Collection Time Receive d Time (Source) Location / / Volume Laterality Blood (Blood, 08/15/2018 4:23 AM 08/16/19 19 4:29 Venous) CDT AM CDT Vaughn Rader M.D., Ph.D. LAB BLOOD TROPONIN Performing Organization Address City/State/ZIP Code Phon e Number [facility] LABORATORIES - [address] [place], [place] [address] [facility] APTT (Activated Partial Thromboplastin Time) (08/15/2018 4:04 AM CDT) athologist Signature Activated 35 25 - 37 08/15/2018 [facility] Partial sec 4:48 AM CDT LABORATORIES - Thrombopl [facility], [facility] Specimen Anatomical Collection Method Collection Time Receive d Time (Source) Location / / Volume Laterality Blood (Blood, 08/15/2018 4:04 AM 08/16/19 19 4:38 Venous) CDT AM CDT Vaughn Rader M.D., Ph.D. LAB BLOOD ADD-ON Performing Organization Address City/State/ZIP Code Phon e Number [facility] LABORATORIES - [address] [place] [address] [facility] documented in this encounter Visit [...] (PLAVIX) 0818 ( Given - Provider: Kody Restrepo, R.N.)0846 (MAR Hold [...] ETED) 0439 (Given - Provider: Shade Blue R.N.) 3,900 Units (rounded from 3,912 Units [...] R.N.)0700 (Rate/Dose Verify - Provider: Kody Restrepo RLaraNLara)0902 (Stopped - Provider: Herbie Brady R.N.) 0-40 [...] - Reason: Patient not available)1048 ([facility] Unhold - Provider: Transfer Provider, [...] iohexol 350 mg iodine/mL solution (OMNIPAQUE) (CANCELED) 48 (Given - Provider: Reji Espitia M.D.) As needed, Starting on 08/15/18 at 0948, Intraprocedure (CV) lidocaine 10 mg/mL (1 %) injection (XYLOCAINE) (CANCELED) 900 (Given - Provider: Reji Espitia M.D.) As needed, Starting on 08/15/18 at 0901, Intraprocedure (CV) midazolam (PF) injection 0.5 mg (VERSED) (COMPLETED) 08 (Given - Provider: Herbie Brady R.N.) 0.5 mg, intravenous, Once as needed, sed ation, Starting on 08/15/18 at 0850, For 1 dose, Intraprocedure (CV) midazolam (PF) injection 0.5 mg (VERSED) (CANCELED) 928 (Given - Provider: Herbie Brady RLaraNLara) 0.5 mg, intravenous, Every 2 min PRN, se dation, RASS -1, Starting on 08/15/18 at 0850, Intraprocedure (CV), May repeat every 2 minutes for a maximum of 5 mg. Do not give if respiratory rate is less than 8 breaths/minute. NaCl 0.9% infusion 0846 (MAR Hold - Pro vider: Transfer Provider, Automatic - Reason: Patient not available)1048 (MAR Unhold - Provider: Transfer Provider, Automatic) 10-250 [...] with maintenance fluid. NaCl 0.9% infusion 0846 (JUL Hold - Pro vider: Transfer Provider, Automatic - Reason: Patient not available)1048 ([facility] Unhold - Provider: Transfer Provider, [...] tablet 0.4 mg (NITROSTAT) 0846 ([facility] Hold - Provider: Transfer Provider, Automatic - Reason: Patient not available)1048 ([facility] Unhold - Provider: Transfer Provider, [...]
--- OUTSIDE RECORDS SUMMARY | 2022-04-11 08:10 | XMS_ITS | Encounter Summary ---
:1940 Author [facility] Address [address] [place] [address] Care Team Providers Name Role Phone Silver Givens M.D., Ph.D. Primary Care Provider [phone] Reason for Referral Outpatient (Routine) - Closed Specialty Diagnoses / Procedures Referred By Contact Yeimi pemberton To Contact Family Medicine Diagnoses Primary Osteoarthritis Shoulder Left Marv Dodson [facility] ID Fariba Antonio [address] [place] [address] Referral ID Status Reason Start Date Expiration Date Visits Requ ested Visits Authorized [id number] Closed 12/15/2019 12/14/2020 1 1 Outpatient (Routine) - Closed Specialty Diagnoses / Procedures Referred By Contact Yeimi pemberton To Contact General Surgery Diagnoses Primary Osteoarthritis Shoulder Left Marv Dodson [facility] ID Fariba Antonio [address] [place] [address] Referral ID Status Reason Start Date Expiration Date Visits Requ ested Visits Authorized [id number] Closed 12/15/2019 12/14/2020 1 1 Outpatient (Routine) - Closed Specialty Diagnoses / Procedures Referred By Contact Refer nilay To Contact Orthopedic Surgery Marv Dodson M. D. [address] [place] [address] Referral ID Status Reason Start Date Expiration Date Visits Requ ested Visits Authorized [id number] Closed 12/15/2019 12/14/2020 1 1 Reason for Visit Reason Comments Pain Follow-up Appointment Request (Routine) - Closed Specialty Diagnoses / Procedures Referred By Contact Refer nilay To Contact Orthopedic Surgery Referral ID Status Reason Start Date Expiration Date Visits Requ ested Visits Authorized [id number] Closed 11/26/2019 11/25/2020 1 1 Encounter Details Date Type Department Care Team Description 12/15/2019 Office Visit Department of Maddie Dodson Osteoa rthritis Orthopedic Surgery in [place] Shoulder Left (Primary [address] Dx) [address] [place] [phone] Social History Tobacco Use Types Packs/Day Years [...] Name Type Priority Associated Diagnoses Order S [facility] Orthopedic Surgery Outpatient Referral Routine Ex pected: [...] RNA, V Asymptomatic (01/22/2020 9:29 AM CDT) [facility] Time Signature SARS-CoV-2 Swab, 01/22/2020 ECLR Specimen [...] is performed using the Aptima SARS-CoV-2 assay ([employer] which has received Emergency Use Authori zation (EUA) by the U.S. Food and Drug Administration. Fact sheets for this Emergency Use Autho rization (EUA) assay can be found at the following links: For Healthcare Providers: https://www.Spinnakr a.gov/media/488181/download For Patients: https://www.fda.gov/media/ 892740/download Specimen Anatomical Collection Method Collection Time Receive d Time (Source) Location / / Volume Laterality Varies 01/22/2020 9:29 AM 0 3:53 (Nasopharynx) CDT PM CDT Marv Dodson M.D. LAB MICROBIOLOGY - GENERAL O RDERABLES Performing Organization Address City/State/ZIP Code Phon e Number [facility]- [address] [place] [phone] [facility] [place] [address] [address] DX Shoulder Left 2+ Views (12/15/2019 [...] documented as of this encounter Care Teams [employer] Supervisor Relationship Specialty Start Date End Date Silver Givens M.D., Ph.D. PCP - General Family Medicine 11/10/19 12/09/[address] [place] [phone] documented as of this encounter
--- OUTSIDE RECORDS SUMMARY | 2022-04-11 08:10 | XMS_ITS | Encounter Summary ---
:1940 Author Organization [facility] Address [address] [place] [address] Care Team Providers Name Role Phone Elsewhere, Pcp Primary Care Provider Unavailable Reason for Visit Appointment Request (Routine) - Closed Specialty Diagnoses / Procedures Referred By Contact Refer red To Contact Orthopedic Surgery Referral ID Status Reason Start Date Expiration Date Visits Requ ested Visits Authorized [id number] Closed 11/10/2018 11/10/2019 1 1 Encounter Details Date Type Department Care Team Description 11/25/2018 Office Visit Department of Marv Dodson, Bursitis (Primary Dx); Orthopedic Surgery in [place] Pain Shoulder Left [address] [address] [phone] Social History Tobacco Use Types Packs/Day Years [...] M.D. - 11/25/2018 8:45 AM CDTAssociated Order(s): nnn-qocl-xdsspybf-elbow arthrocentesis: L subacromial bursa Post-Procedure Diagnose(s): Bursitis; [...] Name Priority Date/Time Associated Diagnosis Comme nts LA ARTHCS ASP/INJ Routine 11/25/2018 8:45 AM Bursitis Results for this MJR JT WO US CDT Pain Shoulder Left procedure are in the results section. documented in this encounter Results LA ARTHCS ASP/INJ [facility] JT WO US (11/25/2018 [...] Marv Dodson M.D. PROCEDURE/MINOR SURGICAL ORD ERABLES documented in [...] documented as of this encounter Care Teams Pharmacy Intern Relationship Specialty Start Date End Date Elsewhere, Pcp PCP - General Internal Medicine 08/17/18 11/09/19 documented as of this encounter
--- OUTSIDE RECORDS SUMMARY | 2022-04-11 08:10 | XMS_ITS | Encounter Summary ---
:1940 Author Organization [facility] Address [address] [place] [address] Care Team Providers Name Role Phone Silver Givens M.D., Ph.D. Primary Care Provider [phone] Reason for Visit Reason Comments Surgical Listing 01/25/[address] left total shoulder reversal Dr Dodson Encounter Details Date Type Department Care Team Description 12/15/2019 Clinical Communication Department of Tanya Dodson icaadams Listing Orthopedic Surgery Marisela Fair (01/25/20 left total in [place], [address] [place] [address] Dr Dodson ) [address] [place] [phone] Social History Tobacco Use Types Packs/Day [...] interview positive and should be referred tothe [facility] Nurse Line (Phone number ) and this information communicated to clinical team responsible for the operation. Sent to [facility] Nurse Triage No Patient was instructed to [...] documented as of this encounter Care Teams Retail Security Professional Relationship Specialty Start Date End Date Silver Givens M.D., Ph.D. PCP - General Family Medicine 11/10/19 12/09/[address] [place] [phone] documented as of this encounter
--- OUTSIDE RECORDS SUMMARY | 2022-04-11 08:10 | XMS_ITS | Encounter Summary ---
:1940 Author Organization [facility] Address [address] [place] [address] Care Team Providers Name Role Phone Silver Givens M.D., Ph.D. Primary Care Provider Reason for Visit Reason Comments Covid Screening Encounter Details Date Type Department Care Team Description 11/10/2019 Clinical Communication Department of [facility] Mike Givens, Covid Screening MedicineMargarito M.D., Ph.D. [facility], [address] [address] [place], [place] [phone] (Work) [phone] Social History Tobacco Use Types Packs/Day Years Used Date Smoking Tobacco: Former Smokeless Tobacco: Never Alcohol Use Standard Drinks/Week Comments No 0 (1 standard drink = 0.6 oz pure alcoho l) Sex Assigned at Date Recorded Not on file documented as of this encounter Miscellaneous Notes Telephone Encounter - Mattie Mensah - 11/10/2019 4:06 PM CDT ([facility] and [place] [facility] locations only: If the patient is not having symptoms and is requesting COVID-19 Nasal Swab testing only, use the process listed in the COVID-19 Patient Requesting COVID PCR Test OTG COVID-19 [place] Patient Requesting COVID PCR Test). 1. Do [...] Route reply to: n/a Scheduling Contact Number: [phone] documented in this encounter Plan of Treatment Not on filedocumented as of this encounter Visit Diagnoses Not on filedocumented in this encounter Additional Health Concerns Assessment Noted Time PHQ-9 Depression Total Score: 2 03/08/2015 11:16 AM CS T documented as of this encounter Care Teams Senior Project Manager Relationship Specialty Start Date End Date Silver Givens M.D., Ph.D. PCP - General Family Medicine 11/10/19 12/09/[address] [place] [phone] documented as of this encounter
--- OUTSIDE RECORDS SUMMARY | 2022-04-11 08:10 | XMS_ITS | Encounter Summary ---
:1940 Author Organization [facility] Address [address] [place] [address] Care Team Providers Name Role Phone Unavailable Primary Care Provider Unavailable Encounter Details Date Type Department Care Team Description 08/15/2018 Surgery Division of Cardiovascular Barraza, Jacques , Coronary Angiography Diseases in [facility] [address] [facility] [address] [place] [phone] Social History Tobacco Use Types Packs/Day Years [...] Case IDs Date Procedure Surgeon Location Status [id number] 08/15/18 Coronary Angiography Jacques Barraza M.D. [facility] [...] started on heparin drip and transferred to [facility] for further management of NSTEMI. He underwent [...] exam, and recommendations by Dr. Meier. #1 Umo-MD-rskuwyqyk myocardial infarction Mr. Vines will continue with [...] with the plan. CT CT Job ID: [id number] documented in this encounter H&P Notes Tom [...] intravenous heparin. He was taken to the brush clearing laborer this morning, after informed consent was [...] by Dr. Monk and Dr. Corral. #1 Vap-OY-pyvdnuwny myocardial infarction Mr. Vines was preloaded with [...] with the plan. CT CT Job ID: [id number] TTET Reji Espitia M.D. - 08/15/2018 8:47 [...] focal neurologic complaints. In the ED in [place], he was noted to have stable vitals [...] on heparin gtt prior to transfer to [facility]. Upon arrival, he is hemodynamically stable [...] focal neurologic complaints. In the ED in [place], he was noted to have stable vitals [...] on heparin gtt prior to transfer to [facility]. Upon arrival, he is hemodynamically stable [...] Dr. Shayna Monk M.D. Internal Medicine, PGY3 Darvin Corral M.D. - 08/15/2018 4:02 AM CDT CVD ISCHEMIC ADMISSION NOTE CC: Chest discomfort Admitted for: NSTEMI HPI: Mr. Vines is a 78 y/o male with a history of CAD s/p AK and stent placement (mid-RCA, 2011), hyperlipidemia, and [...] ED physician spoke with Dr. Calderon at [facility] for recommendations and was suggested to treat his NSTEMI with aspirin 324 mg oral, Plavix 300 mg oral, and start a heparin bolus and drip. The was then transferred to [facility] via ambulance for further management of his [...] GERD, hyperlipidemia, ischemic stroke, CAD status post AK and stent placement - Surgical history: Carotid [...] ASSESSMENT/PLAN #1 NSTEMI #2 Coronary artery disease, AK s/p stent to mid-RCA (2011) #3 Ischemic stroke s/p carotid enterectomy #4 Hyperlipidemia Mr. Vines is a 78 y/o male with a history of CAD s/p AK and stent placement (mid- RCA, 2011) and [...] in this encounter Nursing Notes Kody Restrepo RLaraN. - 08/16/2018 10:30 AM CDT Shift Goals: Clinical Goals for the Shift: maintain stable post angio and d/c in timely manner Identify possible barriers to meeting goals/advancing plan of care: none End of Shift Summary: Education complete. Pt will d/c to [facility]. No further questions CARDIOVASCULAR - ADULT ??? [...] membranes remain intact Adequate for Discharge Shade Carballo R.N. - 08/16/2018 4:56 AM CDT Shift [...] Implant Name Type Inv. Item Serial No. Bench Loom Weaver Lot No. LRB No. Used Action STNT SYNERGY SHAHAB [id number] - [id number] Cardiac Stent STNT SYNERGY SHAHAB [id number] [employer] [id number] N/A 1 Implanted Antiplatelet regimen: Aspirin 81 [...] Jung Castro M.D., M.P.H. Interventional and Structural Stagecraft Professor [facility] 08/15/18 9:53 AM documented in this encounter [...] started on heparin drip and transferred to [facility] for further management of NSTEMI. He underwent [...] Basic Metabolic Panel (08/16/2018 7:44 AM CDT) [facility] Time Signature Potassium, S 4.2 3.6 - 5.2 08/16/2018 [facility] mmol/L 8:51 AM CDT LABORATORIES - [facility] Sodium, S 141 135 - 145 08/16/2018 [facility] mmol/L 8:51 AM CDT LABORATORIES [facility] Chloride, S 102 98 - 107 08/16/2018 [facility] mmol/L 8:51 AM CDT [facility] Bicarbonate, S 23 22 - 29 08/16/2018 [facility] mmol/L 8:51 AM T [facility] Anion Gap 16 (H) 7 - 15 08/16/2018 [facility] 8:51 AM CDT LABORATORIES [facility] BUN (Blood Urea 16 8 - 24 08/16/2018 [facility] Nitrogen), S mg/dL 8:51 AM T [facility] Creatinine 1.18 0.74 - 08/16/2018 [facility] 1.35 mg/dL 8:51 AM T LABORATORIES [facility] eGFR-Non 59 (L) >=60 08/16/2018 [facility] Black/ mL/min/BSA 8:51 AM T LABORATORIES [facility] Comment: ----ADDITIONAL INFORMATION---- Estimated GFR calculated using the 2009 CKD_EPI creatinine equation. eGFR-Black/ 68 >=60 mL/min/BSA 08/16/2018 [facility] Comment: ----ADDITIONAL INFORMATION---- Estimated GFR calculated using the 2009 CKD_EPI creatinine equation. Calcium, Total, S 9.5 8.8 - 10.2 mg/dL 08/16/2018 8:51 AM [facility] Glucose, S 100 70 - 140 mg/dL 08/16/2018 8:51 AM [facility] Specimen Anatomical Collection Method Collection Time Receive d Time (Source) Location / / Volume Laterality Blood (Blood, 08/16/2018 7:44 AM 08/17/19 19 8:16 Venous) CDT AM CDT Tom Johnson M.D., Ph.D. LAB BLOOD ADD-ON Performing Organization Address City/State/ZIP Code Phon e Number [facility] - [address] [address] [facility] CBC with Differential, Blood (08/16/2018 7:44 AM CDT) [facility] gist Method Time Signature Hemoglobin 15.2 13.2 - 08/16/2018 [facility] 16.6 g/dL 8:21 AM CDT [facility] Hematocrit 44.7 38.3 - 08/16/2018 [facility] 48.6 % 8:21 AM CDT LABORATORIES - [facility] Erythrocytes 4.99 4.35 - 08/16/2018 [facility] 5.65 8:21 AM CDT LABORATORIES - x10(12)/L [facility] MCV 89.6 78.2 - 08/16/2018 [facility] 97.9 fL 8:21 AM CDT LABORATORIES - [facility] RBC Distrib Width 14.1 11.8 - 08/16/2018 [facility] 14.5 % 8:21 AM CDT [facility]ATORIES - [facility] Platelet Count 231 135 - 317 08/16/2018 [facility] x10(9)/L 8:21 AM CDT [facility]ATORIES - [facility] Leukocytes 8.1 3.4 - 9.6 08/16/2018 [facility] x10(9)/L 8:21 AM CDT LAB[facility]ATORIES - [facility] Neutrophils 5.20 1.56 - 08/16/2018 [facility] 6.45 8:21 AM CDT LABORATORIES - x10(9)/L [facility] Lymphocytes 2.03 0.95 - 08/16/2018 [facility] 3.07 8:21 AM CDT LABORATORIES - x10(9)/L [facility] Monocytes 0.60 0.26 - 08/16/2018 [facility] 0.81 8:21 AM CDT LABORATORIES - x10(9)/L [facility] Eosinophils 0.20 0.03 - 08/16/2018 [facility] 0.48 8:21 AM CDT LABORATORIES - x10(9)/L [facility] Basophils 0.04 0.01 - 08/16/2018 [facility] 0.08 8:21 AM CDT LABORATORIES - x10(9)/L [facility] Specimen Anatomical Collection Method Collection Time Receive d Time (Source) Location / / Volume Laterality Blood (Blood, 08/16/2018 7:44 AM 08/17/19 19 8:16 Venous) CDT AM CDT Tom Johnson M.D., Ph.D. LAB BLOOD ADD-ON Performing Organization Address City/State/ZIP Code Phon e Number [facility] - [address] [place], [place] [address] [facility] (ABNORMAL) Troponin T, 6H, 5th Gen (08/15/2018 12:37 PM CDT) Patholo gist Method Time Signature Troponin T, 6 433 (H) <=15 ng/L 08/15/2018 [facility] hr, 5th gen 1:09 PM CDT [facility] Comment: Consider acute myocardial injur y 6H Delta 127 ng/L 08/15/2018 1:09 PM CDT [facility] LABORATORIES - [facility] 6H Delta Interp Changing 08/15/2018 1:09 PM CDT [facility] Comment: Evaluate for acute myocardial i njury Specimen Anatomical Collection Method Collection Time Receive d Time (Source) Location / / Volume Laterality Blood 08/15/2018 12:37 08/15/2018 PM CDT 12:43 PM CDT Darvin Corral M.D. LAB BLOOD TROPONIN Performing Organization Address City/[facility] Phon e Number [facility] - [address] Heparin Anti-Xa Assay (08/15/2018 11:00 AM CDT) P athologist Signature Heparin 1.62 IU/mL 08/15/2018 [facility] Anti-Xa, P 12:53 PM CDT [facility] Comment: UFH therapeutic range: ?? 0.30-0.70 IU/mL [...] LAB BLOOD NON ADD-ON Performing Organization Address City/[facility] Phon e Number [facility] - [address] CORONARY ANGIOGRAPHY, STENT PLACEMENT, PERCUTANEOUS CORONARY [...] ST Clotting Time, sec 9:41 AM CDT [facility] POCT INPATIENT LABS Specimen Anatomical Collection Method Collection Time Receive d Time (Source) Location / / Volume Laterality Blood 08/15/2018 9:35 AM 9 9:41 CDT AM CDT Unknown Provider LAB POCT ORDERABLES - DEVICE Performing Organization Address City/[facility]/ZIP Code Phon e Number [facility] [address] [facility] N [address] (ABNORMAL) ACT (Activated Clotting Time), POCT (08/15/2018 9:14 AM CDT) P athologist Signature Activated 168 (H) 84 - 139 08/15/[address] Clotting Time, sec 9:18 AM CDT [facility] POCT INPATIENT LABS Specimen Anatomical Collection Method Collection Time Receive d Time (Source) Location / / Volume Laterality Blood 08/15/2018 9:14 AM 9 9:18 CDT AM CDT Unknown Provider LAB POCT ORDERABLES - DEVICE Performing Organization Address City/[facility]/ZIP Code Phon e Number [facility] IN[facility] 200 [facility] [address] [address] Bilirubin, Direct (08/15/2018 6:00 AM CDT) P athologist Signature Bilirubin, 0.2 0.0 - 0.3 08/15/2018 [facility] Direct, S mg/dL 8:25 AM CDT [facility] Specimen Anatomical Collection Method Collection Time Receive d Time (Source) Location / / Volume Laterality Blood (Blood, 08/15/2018 6:00 AM 08/16/19 19 6:20 Venous) CDT AM CDT Vaughn Rader M.D., Ph.D. LAB BLOOD ADD-ON Performing Organization Address City/State/ZIP Code Phon e Number [facility] - [address] [place], [place] [address] [facility] (ABNORMAL) Comprehensive Metabolic Panel (08/15/2018 6:00 AM CDT) [facility] Method Time Signature Potassium, S 4.5 3.6 - 5.2 08/15/2018 [facility] mmol/L 8:25 AM CDT [facility] Sodium, S 144 135 - 145 08/15/2018 [facility] mmol/L 8:25 AM CDT [facility] Chloride, S 102 98 - 107 08/15/2018 [facility] mmol/L 8:25 AM CDT [facility] Bicarbonate, S 24 22 - 29 08/15/2018 [facility] mmol/L 8:25 AM CDT [facility] Anion Gap 18 (H) 7 - 15 08/15/2018 [facility] 8:25 AM T [facility] BUN (Blood Urea 14 8 - 24 08/15/2018 [facility] Nitrogen), S mg/dL 8:25 AM T [facility] Creatinine 1.14 0.74 - 08/15/2018 [facility] 1.35 mg/dL 8:25 AM CDT [facility] eGFR-Non 62 >=60 08/15/2018 [facility] Black/ mL/min/BSA 8:25 AM CDT LABORATORIES [facility] Comment: ----ADDITIONAL INFORMATION---- Estimated GFR calculated using the 2009 CKD_EPI creatinine equation. eGFR-Black/ 71 >=60 mL/min/BSA 08/15/2018 8:25 [facility] [place] CDT LABORATORIES [facility] Comment: ----ADDITIONAL INFORMATION---- Estimated GFR calculated using the 2009 CKD_EPI creatinine equation. Calcium, Total, S 9.6 8.8 - 10.2 08/15/2018 8:25 [facility] mg/dL AM CDT [facility] Glucose, S 102 70 - 140 08/15/2018 8:25 [facility] mg/dL AM CDT [facility] Protein, Total, S 6.4 6.3 - 7.9 08/15/2018 8:25 [facility] g/dL AM CDT [facility] Albumin, S 4.3 3.5 - 5.0 08/15/2018 8:25 [facility] g/dL AM CDT [facility] Aspartate 62 (H) 8 - 48 U/L 08/15/2018 8:25 [facility] Aminotransferase (AST), AM CDT LABORA TORIES - S [facility] Alkaline Phosphatase, S 142 (H) 40 - 129 U/L 08/15/2018 8: 25 [facility] AM CDT [facility] Alanine Aminotransferase 25 7 - 55 U/L 08/15/2018 8:2 5 [facility] (ALT), S AM CDT [facility] Bilirubin, Total, S 1.2 <=1.2 mg/dL 08/15/2018 8:25 [facility] AM CDT [facility] Specimen Anatomical Collection Method Collection Time Receive d Time (Source) Location / / Volume Laterality Blood (Blood, 08/15/2018 6:00 AM 08/16/19 19 6:20 Venous) CDT AM CDT Vaughn Rader M.D., Ph.D. LAB BLOOD ADD-ON Performing Organization Address City/State/ZIP Code Phon e Number [facility] - [address] [place], [place] [address] [facility] (ABNORMAL) Troponin T, 2H/6H, 5th Gen (08/15/2018 6:00 AM CDT) [facility] Method Time Signature Troponin T, 2 366 (H) <=15 ng/L 08/15/2018 [facility] hr, 5th gen 6:38 AM CDT [facility] Comment: Consider acute myocardial injur y 2H Delta 60 ng/L 08/15/2018 6:38 AM CDT [facility] 2H Delta Interp Changing 08/15/2018 6:38 AM CDT [facility] Comment: Evaluate for acute myocardial i njury Troponin T, 6 hr, 5th CANCELED ng/L 08/15/2018 11: 23 AM [facility] gen CDT - [facility] Comment: Hemolyzed redraw requested Result canceled by the ancillary Specimen Anatomical Collection Method Collection Time Receive d Time (Source) Location / / Volume Laterality Blood (Blood, 08/15/2018 6:00 AM 08/16/19 19 6:07 Venous) CDT AM CDT Narrative [facility] - [facility] - 08/15/2018 11:25 AM CDT Specimen Information: Specimen ID: [id number] Specimen Type: Blood Specimen Collection Start Date: 08/16/19 ??6:00 AM Specimen Received Date: 08/15/2018 ??6:0 7 AM Specimen ID: [id number] Specimen Type: Blood Specimen Collection Start Date: 08/16/19 11:00 AM Specimen Received Date: 08/15/2018 11:08 AM Vaughn Rader M.D., Ph.D. LAB BLOOD TROPONIN Performing Organization Address City/State/ZIP Code Phon e Number [facility] - [address] (ABNORMAL) Troponin T, Baseline, 5th gen (08/15/2018 4:23 AM CDT) [facility] Method Time Signature Troponin T, 306 (H) <=15 ng/L 08/15/2018 [facility] Baseline, 5th 4:50 AM CDT LABORATORIES - gen [facility] Comment: Consider acute myocardial injur y Specimen Anatomical Collection Method Collection Time Receive d Time (Source) Location / / Volume Laterality Blood (Blood, 08/15/2018 4:23 AM 08/16/19 19 4:29 Venous) CDT AM CDT Vaughn Rader M.D., Ph.D. LAB BLOOD TROPONIN Performing Organization Address City/State/ZIP Code Phon e Number [facility] - [address] APTT (Activated Partial Thromboplastin Time) (08/15/2018 4:04 AM CDT) P athologist Signature Activated 35 25 - 37 08/15/2018 [facility] Partial sec 4:48 AM CDT LABORATORIES - [facility] Specimen Anatomical Collection Method Collection Time Receive d Time (Source) Location / / Volume Laterality Blood (Blood, 08/15/2018 4:04 AM 08/16/19 4:38 Venous) CDT AM CDT Vaughn Rader M.D., Ph.D. LAB BLOOD ADD-ON Performing Organization Address City/State/ZIP Code Phon e Number [facility] - [address] [place], [place] [address] [facility] documented in this encounter Visit [...] then disca rd. ezetimibe tablet 10 mg (TIGRETIA) Given 08/16/2018 8:15 AM CDT 10 mg [...] Automatic) 0815 (Given - Provider: Kody Restrepo RLaraN.) 12.5 mg, oral, Daily, First dose on [...] or score 7-10 of 10, Starting on 4/13/19 at 0850, Intraprocedure (CV), Administer over 1 [...] (COMPLETED) 0857 (Given - Provider: Herbie Brady R.NLara) 0.5 [...] Provider, Automatic - Reason: Patient not available)1048 ([facility] Unhold - Provider: Transfer Provider, Automatic) [...] nitroglycerin SL tablet 0.4 mg (NITROSTAT) 0846 ([facility] Hold - Provider: Transfer Provider, Automatic - Reason: Patient not available)1048 ([facility] Unhold - Provider: Transfer Provider, Automatic) [...]
--- OUTSIDE RECORDS SUMMARY | 2022-04-11 08:10 | XMS_ITS | Encounter Summary ---
:1940 Author Organization [facility] Address [address] [place] [address] Care Team Providers Name Role Phone Unavailable Primary Care Provider Unavailable Encounter Details Date Type Department Care Team Description 08/13/2018 Hospital Encounter Department of Lalia Loco Shoulder [facility] [place] [address] [facility] [address] [address] [place], [place] [phone] [address] (Work) [phone] Social History Tobacco Use Types Packs/Day Years [...] tartrate 0 06/23/201708/15 (for_LOPRESSOR) 25 mg tablet ixgfatlhbvtg-eywwfqge-plb Take 1 tablet by 0 06/0608/15/2018 ifrah [...]
--- OUTSIDE RECORDS SUMMARY | 2022-04-11 08:10 | XMS_ITS | Encounter Summary ---
:1940 Author Organization [facility] Address [address] [place] [address] Care Team Providers Name Role Phone Elsewhere, Pcp Primary Care Provider Unavailable Encounter Details Date Type Department Care Team Description 08/28/2018 [facility] Laila Loco Memory (Primary [facility] [address] [place] [address] [phone] Social History Tobacco Use Types Packs/Day Years [...] as of this encounter Care Teams Manager Data Relationship Specialty Start Date End Date Elsewhere, Pcp PCP - General Internal Medicine 12/10/21 documented as of this encounter
--- OUTSIDE RECORDS SUMMARY | 2022-04-11 08:10 | XMS_ITS | Encounter Summary ---
:1940 Author Organization [facility] Address [address] [place] [address] Care Team Providers Name Role Phone Elsewhere, Pcp Primary Care Provider Unavailable Reason for Referral Outpatient (Routine) - Closed Specialty Diagnoses / Procedures Referred By Contact Refer red To Contact Diagnoses Pain Shoulder Left Marv Dodson M.D. [facility] Region Procedures qjl-rgjw-qvfiiyqr-elbow arthrocentesis: L glenohumeral [address] [place] [phone] Referral ID Status Reason Start Date Expiration Date Visits Requ ested Visits Authorized [id number] Closed 09/08/2019 09/07/2020 1 1 Reason for Visit Reason Comments Arthritis Pain Encounter Details Date Type Department Care Team Description 09/08/2019 Office Visit Department of Marv Dodson Pain Shou ldkemi Left Orthopedic Surgery in [place] (Primary Dx) [place], [place] [address] [place] [phone] Social History Tobacco Use Types Packs/Day Years [...] M.D. - 09/08/2019 9:15 AM CDTAssociated Order(s): mxt-duyu-oqfhyldz-elbow arthrocentesis: L glenohumeral Post-Procedure Diagnose(s): Pain Shoulder [...] Name Priority Date/Time Associated Diagnosis Comme nts OK ARTHCS ASP/INJ Routine 09/08/2019 9:15 AM Pain Shoulder Lef t Results for this MJR JT WO US CDT procedure are i n the results section. documented in this encounter Results [place] ARTHCS ASP/INJ MJR JT WO US (09/08/2019 [...] documented as of this encounter Care Teams Regional Intermodal Truck Driver Relationship Specialty Start Date End Date Elsewhere, Pcp PCP - General Internal Medicine 08/17/18 11/09/19 documented as of this encounter
--- OUTSIDE RECORDS SUMMARY | 2022-04-11 08:11 | XMS_ITS | Encounter Summary ---
:1940 Author Organization [facility] Address [address] [place] [address] Care Team Providers Name Role Phone Unavailable Primary Care Provider Unavailable Encounter Details Date Type Department Care Team Description 06/30/2017 Ancillary Procedure Department of Ramyundo Muniz Ophthalmology in Fabricio Soares M.D[address] [place] [phone] Social History Tobacco Use Types [...] Results for this OU - BOTH EYES NEGATIVE NOTCHER Nuclear Sclerosis procedur e are in Right the results Cataract Senile section. Nuclear Sclerosis Left documented in this encounter Results Corneal Topography - OU - Both Eyes (06/30/2017 11:15 AM NEGATIVE NOTCHER) Specimen (Source) Anatomical Location Collection Method / [...]
--- OUTSIDE RECORDS SUMMARY | 2022-04-11 08:11 | XMS_ITS | Encounter Summary ---
:1940 Author Organization [facility] Address [address] [place] [address] Care Team Providers Name Role Phone Unavailable Primary Care Provider Unavailable Encounter Details Date Type Department Care Team Description 07/17/2017 Abstract Department of Family Medicine, Provider, Historical [facility], in [place], [place] [address] [place], [place] [phone] Social History Tobacco Use Types Packs/Day [...]
--- OUTSIDE RECORDS SUMMARY | 2022-04-11 08:11 | XMS_ITS | Encounter Summary ---
:1940 Author Organization [facility] Address [address] [place] [address] Care Team Providers Name Role Phone Unavailable Primary Care Provider Unavailable Reason for Visit Outpatient (Routine) - Closed Specialty Diagnoses / Procedures Referred By Contact Refer red To Contact Diagnoses Cataract Senile Nuclear Sclerosis Right Raymundo Muniz M.D. [address] [phone] Referral ID Status Reason Start Date Expiration Date Visits Requ ested Visits Authorized [id number] Closed 05/01/2017 10/28/2017 1 1 Encounter Details Date Type Department Care Team Description 06/30/2017 Nurse Only Department of General Sandro Muniz M.D. [address] [place] [phone] [place], [place] [address] [place] [phone] [phone] Social History Tobacco Use Types Packs/Day [...] a SARI visit on 06/30/17. Surgery Nurse Cinder Crusher Operator Anesthesia Risk Assessment: Do you have difficulties lying flat? no Comment: Do you have an implanted cardiac device?no. Teaching: Preoperative education was done with (x) patient () other: It was confirmed the patient/family member had received the following preoperative education sheets: It was confirmed the patient/family member had received the following preoperative education sheets: Preparing for Your Surgery ([id number]),Surgical Site Infections ([id number]), Speak Up: Antibiotics ([id number]), Smoke Free, Advice for patients and visitors ([id number]), Managing Your Pain ([id number]) with the [employer] pamphlet ([id number]), Cataract Surgery: Required Appointments and Instructions ([id number]), and Financial Information for the Surgical Patient ([id number]), Preparing for Cataract Surgery Instructions ([id number]). These were reviewed in detail. The patient was instructed to bring the cataract eye kit and their eye drops the day of surgery. In addition, the patient was educated on lifting restrictions of 20 pounds for first week after surgery,using odnw-bty-hvwijaf artificial tears for scratchy dry eyes and [...] appointments: 1st po with surgeon or physician stores assistant: Dr. Miranda's office IFIED MAINTENANCE WELDER documented in this encounter Plan of Treatment Not on filedocumented as of this encounter Visit Diagnoses Diagnosis Preanesthetic Medical Exam - Primary Cataract Senile Nuclear Sclerosis Right documented in this encounter Additional Health Concerns Assessment Noted Time PHQ-9 Depression Total Score: 2 03/08/2015 11:16 AM CS T documented as of this encounter
--- OUTSIDE RECORDS SUMMARY | 2022-04-11 08:11 | XMS_ITS | Encounter Summary ---
:1940 Author Organization [facility] Address [address] [place] [address] Care Team Providers Name Role Phone Unavailable [...]
--- OUTSIDE RECORDS SUMMARY | 2022-04-11 08:11 | XMS_ITS | Encounter Summary ---
:1940 Author Organization [facility] Address [address] [place] [address] Care Team Providers Name Role Phone Unavailable Primary Care Provider Unavailable Encounter Details Date Type Department Care Team Description 07/21/2017 Hospital Encounter [facility] Raymundo Muniz, [address] [place] [address] [place], [place] [address] [place] [address] [place], [place] [phone] (Wo rk) Social History Tobacco Use [...] from the original note were not included. [facility] Cataract/Trabeculectomy Discharge Instructions, Eye Care [...] (Month DD, YYYY) Time (hh:mm) Ophthalmology at [facility] Phone Numbers: Office: [phone] Toll Free: [phone] ext. [phone] ??2015 [facility] Medical Education and Research Page 1 of 2 [id number] When you leave the hospital after your [...] tartrate 0 06/23/201708/15 (for_LOPRESSOR) 25 mg tablet jznsalhqzcxu-hfxojrxm-fy Take 1 tablet by 0 06/2508/15/2018 rrous [...] Raymundo Muniz M.D. - 07/07/2017 9:35 AM DIGESTER OPERATOR HELPER History of present illness: The patient [...] Implant Name Type Inv. Item Serial No. Casino Floor Person Lot No. LRB No. Used Action [id number] Ocular Lens [id number] Ann Left 1 Implanted Rayumndo Muniz M.D. PREOPERATIVE DIAGNOSIS Visually disabling nuclear [...]
--- OUTSIDE RECORDS SUMMARY | 2022-04-11 08:11 | XMS_ITS | Encounter Summary ---
:1940 Author Organization [facility] Address [address] [place] [address] Care Team Providers Name Role Phone Unavailable Primary Care Provider Unavailable Encounter Details Date Type Department Care Team Description 08/08/2017 Abstract Department of Family Medicine, Provider, Historical [facility], in [place], [place] [address] [place], [place] [phone] Social History Tobacco Use Types Packs/Day [...]
--- OUTSIDE RECORDS SUMMARY | 2022-04-11 08:11 | XMS_ITS | Encounter Summary ---
:1940 Author Organization [facility] Address [address] [place] [address] Care Team Providers Name Role Phone Unavailable Primary Care Provider Unavailable Encounter Details Date Type Department Care Team Description 07/21/2017 Surgery [facility] OR Raymundo Muniz, EXTRACTION CATARACT [address] [place] [address] BLVD [place] WITH INSERTION [place], [place] [address] INTRAOCULAR LENS [address] [place], [place] [phone] (Wo rk) Social History Tobacco Use [...] DD, YYYY) Time (hh:mm) Ophthalmology at [facility] Phone Numbers: Office: [phone] Toll Free: [phone] ext. [phone] ??2015 [facility] for Medical Education and Research Page 1 of 2 [id number] When you leave the hospital after your [...] tartrate 0 06/23/201708/15 (for_LOPRESSOR) 25 mg tablet uwcytnktugdn-yzkorecv-vj Take 1 tablet by 0 06/2508/15/2018 rrous [...] Raymundo Muniz M.D. - 07/07/2017 9:35 AM ELECTRICAL TECHNICIAN INSTRUCTOR History of present illness: The patient is [...] Implant Name Type Inv. Item Serial No. Supervisor [employer] Lot No. LRB No. Used Action [id number] Ocular Lens [id number] Ann Left 1 Implanted Raymundo Muniz M.D. [...] ED) 0800 (Due)0913 (Given - Provider: Raymundo M Flavio, M.D.) 1 mL, infiltration, Once, On Fri07/21/17 [...]
--- OUTSIDE RECORDS SUMMARY | 2022-04-11 08:11 | XMS_ITS | Encounter Summary ---
:1940 Author Organization [facility] Address [address] [place] [address] Care Team Providers Name Role Phone Unavailable Primary Care Provider Unavailable Encounter Details Date Type Department Care Team Description 04/11/2017 Abstract Department of Family Medicine, Provider, Historical [facility], in [place], [place] [address] [place] [address] [facility] [phone] Social History Tobacco Use Types Packs/Day Years [...]
--- OUTSIDE RECORDS SUMMARY | 2022-04-11 08:11 | XMS_ITS | Encounter Summary ---
:1940 Author Organization [facility] Address [address] [place] [address] Care Team Providers Name Role Phone Unavailable Primary Care Provider Unavailable Encounter Details Date Type Department Care Team Description 06/30/2017 Ancillary Procedure Department of Raymundo Muniz Ophthalmology in Fabricio Soares M.D. [address] [phone] Social History Tobacco Use Types [...] esults for this BIOMETRY (OCB) - OU ROADS AND PARKING LOTS SWEEPER OPERATOR Nuclear Sclerosis pro cedure are in - BOTH EYES Right the results Cataract Senile section. Nuclear Sclerosis Left documented in this encounter Results Ocular Coherence Biometry (OCB) - OU - Both Eyes (06/30/2017 11:17 AM ROADS AND PARKING LOTS SWEEPER OPERATOR) Specimen (Source) Anatomical Location Collection Method / Collectio n Time Received Time / Laterality Volume Narrative Raymundo Muniz M.D. - 08/15/2017 9: 49 AM CDT MODALITY Right Eye The modality was IOL Master. Left Eye The modality was IOL Master. IOL MEASUREMENTS Right Eye IOL Measurements: Axial length was 24.11 mm. K-1 was 42.48 diopters. K1 [place] was 112.00 degrees. K-2 was 43.43. K2 [place] was 22.00 degrees. WTW was 11.80 mm. ACD was 2.59 mm. Lens thicknes s was 5.43 mm. Left Eye IOL Measurements: Axial length was 23.66 mm. K-1 was 42.90 diopters. K1 [place] was 74.00 degrees. K-2 was 43.60. K 2 [place] was 164.00 degrees. WTW was 11.90 mm. ACD was 2.67 mm. Lens thicknes s was 5.22 mm. Raymundo Muniz M.D. OPHTH PHOTOGRAPHY documented in this encounter Visit Diagnoses Not on filedocumented in this encounter Additional Health Concerns Assessment Noted Time PHQ-9 Depression Total Score: 2 03/08/2015 11:16 AM CS T documented as of this encounter
--- OUTSIDE RECORDS SUMMARY | 2022-04-11 08:11 | XMS_ITS | Encounter Summary ---
:1940 Author Organization [facility] Address [address] [place] [address] Care Team Providers Name Role Phone Unavailable Primary Care Provider Unavailable Reason for Referral Outpatient (Routine) - Closed Specialty Diagnoses / Procedures Referred By Contact Refer red To Contact Diagnoses Cataract Senile Nuclear Sclerosis Right Raymundo Muniz M.D. 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 [place] Degenerative Macula Bilateral; [address] Cataract Senile Nuclear Sclerosis Right; [address] [facility] [address] Fabricio [place] Cataract Senile [place] [address] [phone] Social History Tobacco Use Types Packs/Day Years [...] 5. Patient would prefer his surgery in [place] at the [facility]. 6. We will use Miostat control the postoperative intra-ocular pressure. PARTS SPRAYER documented in this encounter Plan of Treatment [...]
--- OUTSIDE RECORDS SUMMARY | 2022-04-11 08:11 | XMS_ITS | Encounter Summary ---
:1940 Author Organization [facility] Address [address] [place] [address] Care Team Providers Name Role Phone Unavailable Primary Care Provider Unavailable Encounter Details Date Type Department Care Team Description 08/01/2017 Abstract Department of Family Medicine, Provider, Historical [facility], in [place], [place] [address] [place], [place] [phone] Social History Tobacco Use Types Packs/Day [...]
--- OUTSIDE RECORDS SUMMARY | 2022-04-11 08:11 | XMS_ITS | Encounter Summary ---
:1940 Author Organization [facility] Address [address] [place] [address] Care Team Providers Name Role Phone Unavailable Primary Care Provider Unavailable Encounter Details Date Type Department Care Team Description 07/07/2017 Anesthesia Event [facility] MAIN OR La Nena Ochoa, YEAST STACKER, CLINICAL ASSESSMENT MANAGER, DNAP [address] [place] [address] [address] Jax Stoner, YEAST STACKER, CLINICAL ASSESSMENT MANAGER, [place] [address] Anesthesia Record Procedure Summary Procedure Name Responsible Anesthesia Start Anesthesia Stop Anesthesiologist Time Time EXTRACTION CATARACT La Nena Ochoa, 07/07/17 0823 07/07 0847 WITH INSERTION YEAST STACKER, CLINICAL ASSESSMENT MANAGER, DNAP INTRAOCULAR LENS (Right) Events Date [...] h andoff to the receiving staff during [facility] ch we 1. Identified the patient [...] IV Placement Date: 07/07/17; 07/07/17721 by 07/07 0907 by Placement Time: 721; Rose Bradford Brand, C onstance A, Catheter Size: 22 G; R.N. R.N. Orientation: Left; Location: Hand; Site Prep: Chlorhexidine (Preferred); Technique: Anatomical landmarks; Insertion Attempts: 1; Removal Date: 07/07/17; Removal Time: 906; Removal Reason: Per protocol (RETIRED) Incision 07/07/17; 08; No 07/07/17 0834 by 07/07/17 09 by dressing; no discharge or Katrina Castillo Bran d, Neetu A, redness; pupil dilated; R.N. R.N. 07/07/17; [...] Evaluation - La Nena Ochoa APRN, JONATHAN, ABBY - 07/07/2017 8:48 AM CST Patient: Obey Vines Procedure Summary Date: 07/07/17 Room / Location: [address] / [facility] OR Anesthesia Start: 822 Anesthesia Stop: 846 Procedure: EXTRACTION CATARACT WITH INSERTION INTRAOCULAR LENS (Right ) Diagnosis: Cataract Senile Nuclear Sclerosis Right (Cataract Senile Nuclear Sclerosis Right [H25.11]) Surgeon: Raymundo Muniz M.D. Responsible Provider: La Nena Ochoa APRN, JONATHAN, DNAJessica Anesthesia Type: MAC ASA Status: 3 Anesthesia [...] Post Op nausea/vomiting: none Hydration status: euvolemic BAGGER Anesthesia Preprocedure Evaluation - La Nena Ochoa [...] patient / legal guardian, or through an overhead foreman; patient evaluated and approved for anesthesia / sedation. The use of blood products not discussed MAC, minimal sedation Patient identified, chart reviewed, anesthetic plan discussed with patient, patient agrees with plan. BAGGER documented in this encounter Plan of Treatment Not on filedocumented as of this encounter Visit Diagnoses Not on filedocumented in this encounter Administered Medications Inactive Administered Medications - up to 3 most recent administrations Medication Order MAR Action Action Date Dose Rate Site fentaNYL injection (for_SUBLIMAZE) Given 07/07/2017 8:26 AM TIRE BAGGER 25 mcg intravenous, As needed, severe pain or score 7-10 of 10, Starting on Fri07/07/17 at 0826, Anesthesia Intra-op midazolam (PF) injection (for_VERSED) Given 07/07/2017 8:26 AM TIRE BAGGER 1 mg As needed, Starting on Fri07/07/17 at 0826, Anesthesia Intra-op documented in this encounter Additional Health Concerns Assessment Noted Time PHQ-9 Depression Total Score: 2 03/08/2015 11:16 AM CS T documented as of this encounter
--- OUTSIDE RECORDS SUMMARY | 2022-04-11 08:11 | XMS_ITS | Encounter Summary ---
:1940 Author Organization [facility] Address [address] [place] [address] Care Team Providers Name Role Phone Unavailable [...] Type Department Care Team Description 07/03/2018 Emergency [facility] Isiah Hart D izziness (Primary Dx); Department M.D. [facility]; [address] [place] [address] [address] [place], [place], [address] [place] [address] [phone] Social History Tobacco Use Types Packs/Day Years Used Date Smoking Tobacco: Former Smokeless Tobacco: Never Alcohol Use Standard Drinks/Week Comments No 0 (1 standard drink = 0.6 oz pure alcoho l) Sex Assigned at Date Recorded Not on file documented as of this encounter Last Filed Vital Signs Vital Sign Reading Time Taken Comments Blood Pressure 117/70 07/03/2018 10:30 PM BOREMATIC MACHINE OPERATOR Pulse 57 07/03/2018 11:00 PM BOREMATIC MACHINE OPERATOR Temperature - - Respiratory Rate 20 07/03/2018 11:00 PM BOREMATIC MACHINE OPERATOR Oxygen Saturation 93% 07/03/2018 11:00 PM BOREMATIC MACHINE OPERATOR Inhaled Oxygen Concentration - - Weight 67.1 kg (148 lb) 07/03/2018 8:28 PM BOREMATIC MACHINE OPERATOR Height - - Body Mass Index 23.79 06/25/2016 8:20 AM BOREMATIC MACHINE OPERATOR documented in this encounter Discharge Instructions AttachmentsThe following attachments cannot be sent through Care Everywhere. Dehydration Adult (Wol[place])documented in this encounter Medications at Time of [...] tartrate 0 06/23/201708/15 (for_LOPRESSOR) 25 mg tablet dalnykvcosnn-kslnqynp-wws Take 1 tablet by 0 06/0608/15/2018 ifrah [...] history of coronary artery disease status post AL and stent placement in 2011, as well [...] INTRAOCULAR LENS; Surgeon: Raymundo Muniz M.D.; Location: [facility] 07/21/2017: EXTRACTION CATARACT WITH INSERTION INTRAOCULAR LENS; Left Comment: Procedure: EXTRACTION CATARACT WITH INSERTION INTRAOCULAR LENS; Surgeon: Raymundo Muniz M.D.; Location: [facility] OR 06/23/2006: MOHS SURGERY; N/A Comment: >Mohs [...] tablet, Take 0.5 tablets by mouth daily. unhjrscemlbi-rrpkowry-ripihaq gluconate (MULTIVITAMIN WITH MINERALS) 9 mg iron/15 [...] Lightheadedness Dehydration Isiah Hart M.D. Resident 07/03/182245 MATIC MACHINE OPERATOR documented in this encounter Plan of Treatment Not on filedocumented as of this encounter Procedures Procedure Name Priority Date/Time Associated Comments Diagnosis URINALYSIS WITH STAT 07/03/2018 9:59 PM Result s for this MICROSCOPIC BOREMATIC MACHINE OPERATOR procedure are i n the results section. CBC WITH STAT 07/03/2018 9:42 PM Results f or this DIFFERENTIAL, B BOREMATIC MACHINE OPERATOR procedure ar e in the results section. C-REACTIVE PROTEIN STAT 07/03/2018 9:42 PM Res ults for this (CRP), S/P BOREMATIC MACHINE OPERATOR procedure are i n the results section. TROPONIN T, 5TH GEN, STAT 07/03/2018 9:42 PM R esults for this P BOREMATIC MACHINE OPERATOR procedure are i n the results section. BASIC METABOLIC STAT 07/03/2018 9:42 PM Result s for this PANEL, S/P BOREMATIC MACHINE OPERATOR procedure are i n the results section. ECG STAT 07/03/2018 8:55 PM Results f or this BOREMATIC MACHINE OPERATOR procedure are i n the results section. documented in this encounter Results (ABNORMAL) Urinalysis with Microscopic (midstream) (07/03/2018 9:59 PM BOREMATIC MACHINE OPERATOR) athologist Signature Source Midstream 07/03/2018 [facility] 10:06 PM [facility] Clarity Clear Clear 07/03/2018 [facility] 10:06 PM [facility] Color Yellow 07/03/2018 [facility] 10:06 PM [facility] Comment: ----REFERENCE VALUE---- Colorless Yellow Isabel Blood Negative Negative 07/03/2018 10:06 PM [facility] Nitrite Negative Negative 07/03/2018 10:06 PM [facility] Leukocyte Esterase Trace (A) Negative 07/03/2018 10:[address] [facility] Protein Negative mg/dL 07/03/2018 10:06 PM [facility] Comment: ----REFERENCE VALUE---- Negative Trace Glucose Negative Negative mg/dL 07/03/2018 10:06 PM [facility] Ketones, QI(U) Negative Negative mg/dL 07/03/2018 10:06 PM [facility] Bilirubin Negative Negative 07/03/2018 10:[address] [facility] pH 6.0 5.0 - 8.0 07/03/2018 10:[address] [facility] Specific [place] 1.010 1.001 - 1.035 07/03/2018 10:06 PM [facility] Urobilinogen 0.2 0.2 - 1.0 mg/dL 07/03/2018 10:06 PM [facility] White Blood Cells Occ-3 /hpf 07/03/2018 10:[address] [facility] Comment: ----REFERENCE VALUE---- Males: 0-3 Females: 0-10 Unknown: 0-10 Red Blood Cells None Seen 0 - 2 /hpf 07/03/2018 10:09 PM [facility] Dysmorphic Red Blood <=25 <=25 % 07/03/2018 10:09 PM [facility] Hyaline Casts Occasional /lpf 07/03/2018 10:09 PM [facility] Specimen Anatomical Collection Method Collection Time Receive d Time (Source) Location / / Volume Laterality Urine (Urine, 07/03/2018 9:59 PM 07/04/19 9:59 Midstream) [facility] BOREMATIC MACHINE OPERATOR Isiah Hart M.D. LAB URINE ORDERABLES Performing Organization Address City/State/[facility] Phon e Number [address] [id number] [place] [facility] Troponin T, 5th Generation (07/03/2018 9:42 PM BOREMATIC MACHINE OPERATOR) athologist [facility] Troponin T, 5th 8 <=15 ng/L 07/03/2018 [facility] gen 10:02 PM [facility] Comment: Biotin has been identified [...] (Blood, 07/03/2018 9:42 PM 07/04/19 9:44 Venous) BOREMATIC MACHINE OPERATOR PM BOREMATIC MACHINE OPERATOR Isiah Hart M.D. LAB BLOOD ADD-ON Performing Organization Address [facility]/ZIP Code Phon e Number [address] [address] [place] [facility] CRP (C-Reactive Protein) (07/03/2018 9:42 PM BOREMATIC MACHINE OPERATOR) athologist [facility] C-Reactive 0.9 <=8.0 mg/L 07/03/2018 [facility] Protein (CRP), 10:07 PM [facility] [place] [facility] Specimen Anatomical Collection Method Collection Time Receive d Time (Source) Location / / Volume Laterality Blood (Blood, 07/03/2018 9:42 PM 07/04/19 9:44 Venous) BOREMATIC MACHINE OPERATOR PM BOREMATIC MACHINE OPERATOR Isiah Hart M.D. LAB BLOOD ADD-ON Performing Organization Address [facility] Code Phon e Number [address] [id number] [place] [facility] CBC with Differential (07/03/2018 9:42 PM BOREMATIC MACHINE OPERATOR) athologist [facility] Hemoglobin 14.4 13.2 - 07/03/2018 [facility] 16.6 g/dL 9:47 PM [facility] Hematocrit 43.2 38.3 - 07/03/2018 [facility] 48.6 % 9:47 PM [facility] Erythrocytes 4.70 4.35 - 07/03/2018 [facility] 5.65 9:47 PM [facility] x10(12)/L [facility] MCV 91.9 78.2 - 07/03/2018 [facility] 97.9 fL 9:47 PM [facility] RBC Distrib Width 14.3 11.8 - 07/03/2018 [facility] 14.5 % 9:47 PM [facility] Platelet Count 202 135 - 317 07/03/2018 [facility] x10(9)/L 9:47 PM [facility] Leukocytes 8.2 3.4 - 9.6 07/03/2018 [facility] x10(9)/L 9:47 PM [facility] Neutrophils 5.79 1.56 - 07/03/2018 [facility] 6.45 9:47 PM [facility] x10(9)/L [facility] Lymphocytes 1.54 0.95 - 07/03/2018 [facility] 3.07 9:47 PM [facility] x10(9)/L [facility] Monocytes 0.55 0.26 - 07/03/2018 [facility] 0.81 9:47 PM [facility] x10(9)/L [facility] Eosinophils 0.27 0.03 - 07/03/2018 [facility] 0.48 9:47 PM [facility] x10(9)/L [facility] Basophils 0.02 0.01 - 07/03/2018 [facility] 0.08 9:47 PM [facility] x10(9)/L [facility] Specimen Anatomical Collection Method Collection Time Receive d Time (Source) Location / / Volume Laterality Blood (Blood, 07/03/2018 9:42 PM 07/04/19 19 9:44 Venous) BOREMATIC MACHINE OPERATOR PM BOREMATIC MACHINE OPERATOR Isiah Hart M.D. LAB BLOOD ADD-ON Performing Organization Address City/State/ZIP Code Phon e Number [facility]- [address] [place] [id number] [place] [facility] BMP (Basic Metabolic Panel) (07/03/2018 9:42 PM BOREMATIC MACHINE OPERATOR) P athologist Signature Potassium, P 4.5 3.6 - 5.2 07/03/2018 [facility] mmol/L 10:12 PM [facility] Sodium, P 140 135 - 145 07/03/2018 [facility] mmol/L 10:12 PM [facility] Chloride, P 103 98 - 107 07/03/2018 [facility] mmol/L 10:12 PM [facility] Bicarbonate, P 25 22 - 29 07/03/2018 [facility] mmol/L 10:13 PM [facility] Anion Gap, P 12 7 - 15 07/03/2018 [facility] 10:12 PM [facility] BUN (Blood Urea 16 8 - 24 07/03/2018 [facility] Nitrogen), P mg/dL 10:13 PM [facility] Creatinine 1.02 0.74 - 07/03/2018 [facility] 1.35 mg/dL 10:13 PM [facility] eGFR-Black/Afri 82 >=60 07/03/2018 [facility] can [place] mL/min/BSA 10:[address] [facility] Comment: ----ADDITIONAL INFORMATION---- Estimated GFR calculated using the 2009 CKD_EPI creatinine equation. eGFR Non-Black/ 71 >=60 mL/min/BSA 07/03/2018 10:13 PM [facility] [place] [facility] Comment: ----ADDITIONAL INFORMATION---- Estimated GFR calculated using the 2009 CKD_EPI creatinine equation. Calcium, Total, P 9.9 8.8 - 10.2 mg/dL 07/03/2018 1 0:13 PM [facility] Glucose, P 126 70 - 140 mg/dL 07/03/2018 10:13 PM [facility] Specimen Anatomical Collection Method Collection Time Receive d Time (Source) Location / / Volume Laterality Blood (Blood, 07/03/2018 9:42 PM 07/04/19 19 9:44 Venous) BOREMATIC MACHINE OPERATOR PM BOREMATIC MACHINE OPERATOR Isiah Hart M.D. LAB BLOOD ADD-ON Performing Organization Address City/State/ZIP Code Phon e Number [facility]- [address] [place] [address] [place] [facility] ECG 12 Lead (STAT) (07/03/2018 8:55 PM BOREMATIC MACHINE OPERATOR) P athologist Signature Ventricular Rate 63 BPM MUSE ECG/Min UT Interval 164 ms MUSE QRSD Interval 78 ms MUSE QT Interval 418 ms MUSE QTC Interval 427 ms MUSE P [place] 37 degrees MUSE T Wave [place] 39 degrees MUSE Specimen Anatomical Collection Method Collection Time Receive d Time (Source) Location / / Volume Laterality 07/03/2018 8:55 PM 9 9:01 BOREMATIC MACHINE OPERATOR PM BOREMATIC MACHINE OPERATOR Impressions MUSE - 07/03/2018 9:01 PM BOREMATIC MACHINE OPERATOR Sinus rhythm Premature ventricular complexes Cannot rule [...]
--- OUTSIDE RECORDS SUMMARY | 2022-04-11 08:11 | XMS_ITS | Encounter Summary ---
:1940 Author Organization [facility] Address [address] [place] [address] Care Team Providers Name Role Phone Unavailable Primary Care Provider Unavailable Reason for Visit Reason Comments Nausea Pt states he had onset of br ief chest pain and some nausea at 0600 this am denies pain on admission Encounter Details Date Type Department Care Team Description 04/01/2017 Emergency Clifford Emergency Bharath Myers, Nausea And Vomiting (Primary Dx); Department M.D. Diarrhea [address] [place] [address] [place], [place] [phone] Social History Tobacco Use Types Packs/Day Years Used Date Smoking Tobacco: Former Smokeless Tobacco: Never Sex Assigned at Date Recorded Not on file documented as of this encounter Last Filed Vital Signs Vital Sign Reading Time Taken Comments Blood Pressure 118/68 04/01/2017 1:30 PM PATTERN STAMPER Pulse 74 04/01/2017 1:30 PM PATTERN STAMPER Temperature 37 ??C (98.6 ??F) 04/01/2017 1:39 PM PATTERN STAMPER Respiratory Rate - - Oxygen Saturation 92% 04/01/2017 1:30 PM PATTERN STAMPER Inhaled Oxygen Concentration - - Weight 69.2 kg (152 lb 8.9 oz) 04/01/2017 1:45 PM PATTERN STAMPER Height - - Body Mass Index 24.52 06/25/2016 8:20 AM PATTERN STAMPER documented in this encounter Discharge Instructions Discharge InstructionsBharath Myers M.D. - 04/01/2017 2:49 PM CST Please reseek care if you develop persistent vomiting and diarrhea and inability to tolerate oral intake. Please also seek care if you develop chest pain, shortness of breath, or persistent lightheadedness. ERN STAMPER AttachmentsThe following attachments cannot be sent through Care Everywhere. Nausea and Vomiting, Adult (Kyrgyz)Diarrhea, Adult, Suvx-ey-Acbi (Kyrgyz) documented in this encounter Medications at Time [...] suggests that it was the tartrate formulation. clgszyulrstt-nhilsjar-jlh Take 1 tablet by 0 06/0608/15/2018 ifrah [...] strength in upper and lower extremities. Normal qdpb-po-rxbq, mgpupf-lz-sdgx, and rapid alternating movements. Normal gait. Skin: [...] this does not feel like his prior MO. EKG shows evidence of possible inferior infarct [...] arrhythmogenic right ventricular dysplasia, Brugada syndrome, HOCM, Soqvk-Nergrrncf-Fsrpx or QTC prolongation. 1501 Chest X-ray is [...] 04/01/17 1513 Bharath Myers M.D. 04/01/17 1613 ERN STAMPER documented in this encounter Plan of Treatment Not on filedocumented as of this encounter Procedures Procedure Name Priority Date/Time Associated Comments Diagnosis DX CHEST AP OR PA RAD - Semiurgent 04/01/2017 1:27 Res ults for this AND LATERAL 2 (Fast; most ED PM PATTERN STAMPER procedure ar e in VIEWS patients; some the results inpatients) section. HEPATIC FUNCTION STAT 04/01/2017 1:18 Results for this PANEL, S PM PATTERN STAMPER procedure are i n the results section. CBC WITH STAT 04/01/2017 1:18 Results for this DIFFERENTIAL, B PM PATTERN STAMPER procedure ar e in the results section. TROPONIN T, 5TH STAT 04/01/2017 1:18 Results f or this GEN, P PM PATTERN STAMPER procedure are i n the results section. LIPASE, S/P STAT 04/01/2017 1:18 Results for this PM PATTERN STAMPER procedure are i n the results section. LACTATE, B/P STAT 04/01/2017 1:18 Results for this PM PATTERN STAMPER procedure are i n the results section. BASIC METABOLIC STAT 04/01/2017 1:18 Results f or this PANEL, S/P PM PATTERN STAMPER procedure are i n the results section. ECG STAT 04/01/2017 1:01 Results for this PM PATTERN STAMPER procedure are i n the results section. documented in this encounter Results DX Chest AP or PA and Lateral 2 Views (04/01/2017 1:27 PM PATTERN STAMPER) Anatomical Region Laterality Modality Chest N/A Digital Radiography Specimen (Source) Anatomical Collection Method Collection Time Re ceived Time Location / / Volume Laterality 04/01/2017 1:42 PM PATTERN STAMPER Impressions 04/01/2017 1:43 PM PATTERN STAMPER IMPRESSION: Cardiac silhouette is not enlarged. No pneumothorax. No lung infiltrate. Right shoulder arthroplasty. Narrative 04/01/2017 1:43 PM PATTERN STAMPER EXAM: DX CHEST AP OR PA AND [...] PROCE PONCHO Troponin T (04/01/2017 1:18 PM PATTERN STAMPER) [facility] T, S <0.01 <0.01 ng/mL 04/01/2017 [facility] 1:56 PM PATTERN STAMPER [facility] Comment: Biotin has been identified by the [place] as a potential interfering substance. ??Higher concentr ations of biotin may be found in multivitamins, hair/nail supple ments, and workout supplements. ??If the result does not ma [facility] clinical observations, repeat testing after patient refrains fr om the use of supplements for at least 12 hours. Specimen Anatomical Collection Method Collection Time Receive d Time (Source) Location / / Volume Laterality Blood (Blood, 04/01/2017 1:18 PM 04/01/20 17 1:20 Venous) PATTERN STAMPER PM PATTERN STAMPER Bharath Myers M.D. LAB BLOOD ADD-ON Performing Organization Address City/[facility]/ZIP Code Phon e Number [place] [phone] [facility] Lipase (04/01/2017 1:18 PM PATTERN STAMPER) [facility] Lipase, S 21 13 - 60 U/L 04/01/2017 [facility] 1:56 PM [facility] Specimen Anatomical Collection Method Collection Time Receive d Time (Source) Location / / Volume Laterality Blood (Blood, 04/01/2017 1:18 PM 04/01/20 17 1:21 Venous) PATTERN STAMPER PM PATTERN STAMPER Bharath Myers M.D. LAB BLOOD ADD-ON Performing Organization Address [facility] Phon e Number [place] [phone] [facility] Lactate (04/01/2017 1:18 PM PATTERN STAMPER) [facility] Lactate, P 2.0 0.6 - 2.3 04/01/2017 [facility] mmol/L 1:36 PM [facility] Specimen Anatomical Collection Method Collection Time Receive d Time (Source) Location / / Volume Laterality Blood (Blood, 04/01/2017 1:18 PM 04/01/20 17 1:21 Venous) PATTERN STAMPER PM PATTERN STAMPER Bharath Myers M.D. LAB BLOOD NON ADD-ON Performing Organization Address City/[facility] Phon e Number [facility]- [address] [place] [phone] [facility] (ABNORMAL) Hepatic Function Panel (04/01/2017 1:18 PM PATTERN STAMPER) Patholo gist Method Time Signature Bilirubin, Total, S 1.4 (H) <=1.2 04/01/2017 [facility] mg/dL 1:56 PM [facility] Bilirubin, Direct, S 0.2 0.0 - 0.3 04/01/2017 [facility] [place] mg/dL 1:56 PM [facility] Aspartate 45 8 - 48 04/01/2017 [facility] Aminotransferase U/L 1:57 PM [facility] Alanine 53 7 - 55 04/01/2017 [facility] Aminotransferase U/L 1:56 PM [facility] Alkaline 160 (H) 45 - 115 04/01/2017 [facility] Phosphatase, S U/L 1:56 PM [facility] Albumin, S 4.2 3.5 - 5.0 04/01/2017 [facility] g/dL 1:56 PM [facility] Protein, Total, S 6.7 6.3 - 7.9 04/01/2017 [facility] g/dL 1:56 PM [facility] Specimen Anatomical Collection Method Collection Time Receive d Time (Source) Location / / Volume Laterality Blood (Blood, 04/01/2017 1:18 PM 04/01/20 17 1:21 Venous) PATTERN STAMPER PM PATTERN STAMPER Bharath Myres M.D. LAB BLOOD ADD-ON Performing Organization Address City/[facility] Code Phon e Number [facility]- [address] [place] [phone] [facility] BMP (Basic Metabolic Panel) (04/01/2017 1:18 PM PATTERN STAMPER) P athologist Signature Potassium, S 4.2 3.6 - 5.2 04/01/2017 [facility] mmol/L 1:[address] [facility] Sodium, S 143 135 - 145 04/01/2017 [facility] mmol/L 1:56 PM [facility] Chloride, S 102 98 - 107 04/01/2017 [facility] mmol/L 1:56 PM [facility] Bicarbonate, S 27 22 - 29 04/01/2017 [facility] mmol/L 1:56 PM [facility] Anion Gap 14 7 - 15 04/01/2017 [facility] 1:56 PM [facility] BUN (Blood Urea 9 8 - 24 04/01/2017 [facility] Nitrogen), S mg/dL 1:56 PM [facility] Creatinine 0.99 0.74 - 04/01/2017 [facility] 1.35 mg/dL 1:56 PM [facility] eGFR 74 >=60 04/01/2017 [facility] Non-Black/Afric mL/min/BSA 1:56 PM [facility]- an [place] [facility] Comment: ----ADDITIONAL INFORMATION---- Estimated GFR calculated using the 2009 CKD_EPI creatinine equation. eGFR-Black/ 85 >=60 mL/min/BSA 2016 1:[address] [facility] Comment: ----ADDITIONAL INFORMATION---- Estimated GFR calculated using the 2009 CKD_EPI creatinine equation. Calcium, Total, S 9.5 8.9 - 10.1 mg/dL 04/01/2017 1 :56 PM [facility] Glucose, S 123 70 - 140 mg/dL 04/01/2017 1:56 PM [facility] [place] [facility] Specimen Anatomical Collection Method Collection Time Receive d Time (Source) Location / / Volume Laterality Blood (Blood, 04/01/2017 1:18 PM 04/01/20 17 1:21 Venous) PATTERN STAMPER [facility] Bharath Myers M.D. LAB BLOOD ADD-ON Performing Organization Address City/State/ZIP Code Phon e Number [facility]- [phone] [address] [facility] (ABNORMAL) CBC with Differential (04/01/2017 1:18 PM PATTERN STAMPER) [facility] gist Method Time Signature Hemoglobin 14.9 13.2 - 04/01/2017 [facility] 16.6 g/dL 1:28 PM [facility] Hematocrit 44.5 38.3 - 04/01/2017 [facility] 48.6 % 1:28 PM [facility] Erythrocytes 4.88 4.35 - 04/01/2017 [facility] 5.65 1:28 PM PATTERN STAMPER [facility]ALTH x10(12)/L SYSTEM- [facility] MCV 91.2 78.2 - 04/01/2017 [facility] 97.9 fL 1:28 PM [facility] RBC Distrib Width 13.6 11.8 - 04/01/2017 [facility] 14.5 % 1:28 PM [facility] Platelet Count 198 135 - 317 04/01/2017 [facility] x10(9)/L 1:28 PM [facility] Leukocytes 16.2 (H) 3.4 - 9.6 04/01/2017 [facility] x10(9)/L 1:28 PM [facility] Neutrophils 14.73 (H) 1.56 - 04/01/2017 [facility] 6.45 1:28 PM [facility] x10(9)/L SYSTEM- [facility] Lymphocytes 0.91 (L) 0.95 - 04/01/2017 [facility] 3.07 1:28 PM PATTERN STAMPER [facility] x10(9)/L SYSTEM- [place] [facility] Monocytes 0.54 0.26 - 04/01/2017 [facility] 0.81 1:28 PM PATTERN STAMPER [facility] x10(9)/L SYSTEM- [facility] Eosinophils 0.01 (L) 0.03 - 04/01/2017 [facility] 0.48 1:28 PM PATTERN STAMPER HEALTH x10(9)/L SYSTEM- [facility] Basophils 0.02 0.01 - 04/01/2017 [facility] 0.08 1:28 PM [facility] x10(9)/L SYSTEM- [facility] Specimen Anatomical Collection Method Collection Time Receive d Time (Source) Location / / Volume Laterality Blood (Blood, 04/01/2017 1:18 PM 11/28/20 17 1:20 Venous) PATTERN STAMPER PM PATTERN STAMPER Bharath Myers M.D. LAB BLOOD ADD-ON Performing Organization Address City/State/ZIP Code Phon e Number [facility]- [phone] [address] [place] [facility] ECG 12 Lead (04/01/2017 1:01 PM PATTERN STAMPER) [facility] gist Method Time Signature Ventricular 78 BPM MUSE Rate ECG/Min VT Interval 178 ms MUSE QRSD Interval 82 ms MUSE QT Interval 376 ms MUSE QTC Interval 428 ms MUSE P [place] 39 degrees MUSE R [place] -12 degrees MUSE T Wave [place] 20 degrees MUSE Clinical Normal sinus rhythm MUSE Diagnosis Cannot rule out Inferior infarct When compared with ECG of 25-JUN-2016 09:01, Vent. rate has increased BY ??29 BPM Minimal criteria for Inferior infarct are now present Specimen Anatomical Collection Method Collection Time Receive d Time (Source) Location / / Volume Laterality 04/01/2017 1:01 PM 7 1:11 PATTERN STAMPER PM PATTERN STAMPER Narrative This result has an attachment that [...] 1,000 mL New Bag 04/01/2017 1:32 PM PATTERN STAMPER 1,000 mL 1,000 mL, intravenous, Once, On 04/01/17 at 1325, For 1 dose documented in this encounter Active and Recently Administered Medications Times are shown in PATTERN STAMPER. Scheduled Medication Order 03/30/2017 03/31/2017 04/01/2017 NaCl [...]
--- OUTSIDE RECORDS SUMMARY | 2022-04-11 08:11 | XMS_ITS | Encounter Summary ---
:1940 Author Organization [facility] Address [address] [place] [address] Care Team Providers Name Role Phone Unavailable Primary Care Provider Unavailable Reason for Visit Reason Comments Communication Encounter Details Date Type Department Care Team Description 06/27/2017 Clinical Communication Department of Mike Montelongo, Communication MedicineMargarito M.D., Ph.D. [address] [address] [place], [place] [phone] (Work) [phone] Social History Tobacco Use Types Packs/Day Years Used Date Smoking Tobacco: Former Smokeless Tobacco: Never Alcohol Use Standard Drinks/Week Comments No 0 (1 standard drink = 0.6 oz pure alcoho l) Sex Assigned at Date Recorded Not on file documented as of this encounter Miscellaneous Notes Telephone Encounter - Melinda Meadows R.N. - 06/27/2017 3:14 PM FOREST NURSERY SUPERVISOR Returned call to [place]. Ophthalmology had not contacted him and he said that he was not sure who it was. I reviewed his appointment times with him for Friday here in [place] and he verbalized understanding. ST NURSERY SUPERVISOR Telephone Encounter - Juliette Wong - 06/27/2017 12:33 PM CST Patient returning a phone call, there were no messages to alert where to send the call. Patient is having surgery and has questions about that. Patient can be reached at [phone] ST NURSERY SUPERVISOR documented in this encounter Plan of Treatment Not on filedocumented as of this encounter Visit Diagnoses Not on filedocumented in this encounter Additional Health Concerns Assessment Noted Time PHQ-9 Depression Total Score: 2 03/08/2015 11:16 AM CS T documented as of this encounter
--- OUTSIDE RECORDS SUMMARY | 2022-04-11 08:11 | XMS_ITS | Encounter Summary ---
:1940 Author Organization [facility] Address [address] [place] [address] Care Team Providers Name Role Phone Unavailable Primary Care Provider Unavailable Encounter Details Date Type Department Care Team Description 07/21/2017 Anesthesia Event [facility] MAIN OR Cr Britt, SCHEDULE HANGER, DIRECTOR OF SPECIAL EDUCATION [id number] Jax Stoner, SCHEDULE HANGER, DIRECTOR OF SPECIAL EDUCATION, [place] [address] Anesthesia Record Procedure Summary Procedure Name Responsible Anesthesia Start Anesthesia Stop Anesthesiologist Time Time EXTRACTION CATARACT Cr Britt APRN, 07/21/17 0901 0 07/21/17 0926 WITH INSERTION DIRECTOR OF SPECIAL EDUCATION INTRAOCULAR LENS (Left) Events Date Time Event [...] h andoff to the receiving staff during [facility] we 1. Identified the patient 2. [...] Procedure Summary Date: 07/21/17 Room / Location: [address] 2-220 / [facility] OR Anesthesia Start: 900 Anesthesia Stop: [...] LIST Relevant Problems (+) Polymyalgia Rheumatica (HCC) DC '12 TIA GERD Lt Vocal Cord Paralysis [...] patient / legal guardian, or through an industrial arts public school teacher; patient evaluated and approved for anesthesia / [...] mg As needed, nausea, vomiting, Starting on Fri07/21/17 at 0906, Anesthesia Intra-op documented in this encounter Additional Health Concerns Assessment Noted Time PHQ-9 Depression Total Score: 2 03/08/2015 11:16 AM CS T documented as of this encounter
--- OUTSIDE RECORDS SUMMARY | 2022-04-11 08:11 | XMS_ITS | Encounter Summary ---
:1940 Author Organization [facility] Address [address] [place] [address] Care Team Providers Name Role Phone Unavailable Primary Care Provider Unavailable Encounter Details Date Type Department Care Team Description 05/22/2017 Abstract Department of Family Medicine, Provider, Historical [facility], in [place], [place] [address] [place], [place] [phone] Social History Tobacco Use Types Packs/Day [...]
--- OUTSIDE RECORDS SUMMARY | 2022-04-11 08:11 | XMS_ITS | Encounter Summary ---
:1940 Author Organization [facility] Address [address] [place] [address] Care Team Providers Name Role Phone Unavailable Primary Care Provider Unavailable Encounter Details Date Type Department Care Team Description 07/07/2017 Hospital Encounter [facility] OR Raymundo Muniz, [address] [place] [address] [place], [place] [address] [place] [address] [place], [place] [phone] (Wo rk) Social History Tobacco Use Types Packs/Day Years Used Date Smoking Tobacco: Former Smokeless Tobacco: Never Alcohol Use Standard Drinks/Week Comments No 0 (1 standard drink = 0.6 oz pure alcoho l) Sex Assigned at Date Recorded Not on file documented as of this encounter Last Filed Vital Signs Vital Sign Reading Time Taken Comments Blood Pressure 110/77 07/07/2017 9:27 AM RUG MEASURER Pulse 59 07/07/2017 9:27 AM RUG MEASURER Temperature 36.4 ??C (97.5 ??F) 07/07/2017 8:47 AM RUG MEASURER Respiratory Rate 16 07/07/2017 8:47 AM RUG MEASURER Oxygen Saturation 95% 07/07/2017 9:27 AM RUG MEASURER Inhaled Oxygen Concentration - - Weight - [...] tartrate 0 06/23/201708/15 (for_LOPRESSOR) 25 mg tablet lkgcjtvmphnu-fzhtffpw-gl Take 1 tablet by 0 06/2508/15/2018 rrous [...] Implant Name Type Inv. Item Serial No. [employer] Salesperson Lot No. LRB No. Used Action TENCNIS IOL Ocular Lens [id number] Ann [id number] Right 1 Implanted Raymundo Muniz M.D. PREOPERATIVE [...] at 1 day postop. Raymundo Muniz M.D. 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 documented in this encounter Administered Medications Inactive Administered Medications - up to 3 most recent administrations Medication Order MAR Action Action Date Dose Rate Site brimonidine 0.2 % ophthalmic Given 07/07/2017 9:31 AM RUG MEASURER 1 drop Right Eye solution 1 drop (for_ALPHAGAN) 1 drop, right eye, 2 times daily, First dose on Fri07/07/17 at 0930 cyclopentolate-phenylephrine 0.125-1.25 % Given 07/07/2017 7:25 AM RUG MEASURER 1 drop ophthalmic solution 1 drop (for_DILATING DROPS) 1 drop, right eye, Once, On Fri07/07/17 at 0715, For 1 dose, Pre-Op, Apply over cornea in operative eye, towards superior fornix and towards inferior fornix. Apply at least 30 minutes prior to case tetracaine (PF) 0.5 % ophthalmic Given 07/07/2017 8:59 AM RUG MEASURER 1 drop Right Eye solution 1 drop (for_ALTACAINE) 1 drop, right eye, Every 5 min, First dose on Fri07/07/17 at 0715, For 4 doses, Pre-Op, in operative eye Given 07/07/2017 7:21 AM RUG MEASURER 1 drop Given 07/07/2017 7:18 AM RUG MEASURER 1 drop documented in this encounter Active and Recently Administered Medications Times are shown in RUG MEASURER. Scheduled Medication Order 07/05/2017 07/06/2017 07/07/2017 brimonidine 0.2 % ophthalmic solution 1 drop (for_ALPHAGAN) 0931 (Given - Provider: Neetu Patterson RSelvin) 1 drop, right eye, 2 times daily, First dose on Fri07/07/17 at 09 30 cyclopentolate-phenylephrine 0.125-1.25 % ophthalmic solution 1 drop (for_DILATING DROPS) (COMPLETED) 0725 (Julienne morfinen - Provider: Rose Bradford R.N.) 1 drop, [...]
--- OUTSIDE RECORDS SUMMARY | 2022-04-11 08:11 | XMS_ITS | Encounter Summary ---
:1940 Author Organization [facility] Address [address] [place] [address] Care Team Providers Name Role Phone Unavailable Primary Care Provider Unavailable Encounter Details Date Type Department Care Team Description 07/07/2017 Surgery [facility] NEIL OR Raymundo Muniz, EXTRACTION CATARACT [address] [place] [address] BLVD M.DLara WITH INSERTION [place], [place] 701 [facility] INTRAOCULAR LENS [address] [place], [place] [phone] (Wo rk) Social History Tobacco Use Types Packs/Day Years Used Date Smoking Tobacco: Former Smokeless Tobacco: Never Alcohol Use Standard Drinks/Week Comments No 0 (1 standard drink = 0.6 oz pure alcoho l) Sex Assigned at Date Recorded Not on file documented as of this encounter Last Filed Vital Signs Vital Sign Reading Time Taken Comments Blood Pressure 121/81 07/07/2017 9:[address] SUPERVISOR Pulse 58 07/07/2017 9:[address] SUPERVISOR Temperature 36.4 ??C (97.5 ??F) 07/07/2017 8:[address] SUPERVISOR Respiratory Rate 16 07/07/2017 8:[address] SUPERVISOR Oxygen Saturation 94% 07/07/2017 9:[address] SUPERVISOR Inhaled Oxygen Concentration - - Weight - [...] tartrate 0 06/23/201708/15 (for_LOPRESSOR) 25 mg tablet ywrequdmslog-gewvqstj-ry Take 1 tablet by 0 06/2508/15/2018 rrous [...] Implant Name Type Inv. Item Serial No. Workforce Staffing Advisor Lot No. LRB No. Used Action TENCNIS IOL Ocular Lens [id number] Ann [id number] Right 1 Implanted Raymundo Muniz M.D. PREOPERATIVE [...] The nucleus was grooved centrally and deeply [id number] degrees and cracked in half. Each nuclear [...] at 1 day postop. Raymundo Muniz M.D. 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 documented in this encounter Administered Medications Inactive Administered Medications - up to 3 most recent administrations Medication Order MAR Action Action Date Dose Rate Site balanced salt solution ophthalmic Given 07/07/2017 8:[address] SUPERVISOR 1 5 mL irrigation (for_BSS) As needed, [...] injection (for_ZI NACEF) Given 07/07/2017 8:[address] SUPERVISOR 1 mg As needed, Starting on Fri07/07/17 at 0832, Intra-Op cyclopentolate-phenylephrine 0.125-1.25 % Given 07/07/2017 7:[address] SUPERVISOR 1 drop ophthalmic solution 1 drop (for_DILATING DROPS) 1 drop, right eye, Once, On Fri07/07/17 at 0715, For 1 dose, Pre-Op, Apply over cornea in operative eye, towards superior fornix and towards inferior fornix. Apply at least 30 minutes prior to case EPINEPHrine 0.3 mg in balanced salt solution Given 09/2017 8:[address] SUPERVISOR 500 mL plus 500 mL ophthalmic irrigation As needed, Starting on Fri07/07/17 at 0832, Intra-Op povidone-iodine 5 % ophthalmic solution Given 07/07/2017 8:[address] SUPERVISOR 30 mL (for_BETADINE) As needed, Starting on Fri07/07/17 at 0832, Intra-Op tetracaine (PF) 0.5 % ophthalmic solution Given 07/07/2017 8:[address] SUPERVISOR 1 drop (for_ALTACAINE) As needed, Starting on Fri07/07/17 at 0832, Intra-Op tetracaine (PF) 0.5 % ophthalmic Given 07/07/2017 8:[address] SUPERVISOR 1 drop Right Eye solution 1 drop (for_ALTACAINE) 1 drop, right eye, Every 5 min, First dose on Fri07/07/17 at 0715, For 4 doses, Pre-Op, in operative eye Given 07/07/2017 7:[address] SUPERVISOR 1 drop Given 07/07/2017 7:[address] SUPERVISOR 1 drop documented in this encounter Active and Recently Administered Medications Times are shown in COURT SUPERVISOR. Scheduled Medication Order 07/05/2017 07/06/2017 07/07/2017 brimonidine [...] Rose Bradford R.N.)0721 (Given - Provider: Rose Bradford, R.N.)0859 (Given - Provider: Neetu Patterson RSelvin) 1 drop, right eye, Every 5 min, [...]
--- OUTSIDE RECORDS SUMMARY | 2022-04-11 08:11 | XMS_ITS | Encounter Summary ---
:1940 Author Organization [facility] Address [address] [place] [address] Care Team Providers Name Role Phone Unavailable Primary Care Provider Unavailable Encounter Details Date Type Department Care Team Description 11/21/2017 Hospital Encounter Department of Laila Loco [facility] [place], [place] [address] [address] [place], [place] [phone] (Work) [phone] Social History Tobacco Use Types Packs/Day Years [...] tartrate 0 06/23/201708/15 (for_LOPRESSOR) 25 mg tablet dpfpdqmrnogk-qrqjnmst-fa Take 1 tablet by 0 06/2508/15/2018 rrous [...] BMD BONE DENSITY SPINE HIPS COMPARISON: None. Sales Closer/Model: Bubble Gum Interactive FINDINGS: ?? LUMBAR SPINE L1-L4 included unless [...] BMD BONE DENSITY SPINE HIPS COMPARISON: None. Sales Closer/Model: Bubble [employer]um Interactive FINDINGS: LUMBAR SPINE L1-L4 included unless otherwise [...]
--- OUTSIDE RECORDS SUMMARY | 2022-04-11 08:11 | XMS_ITS | Encounter Summary ---
:1940 Author Organization [facility] Address [address] [place] [address] Care Team Providers Name Role Phone Unavailable Primary Care Provider Unavailable Encounter Details Date Type Department Care Team Description 11/12/2017 Clinical Communication Department of Raymundo Muniz Ophthalmology in [place] [place] [phone] Social History Tobacco Use Types Packs/Day Years [...]
--- OUTSIDE RECORDS SUMMARY | 2022-04-11 08:11 | XMS_ITS | Encounter Summary ---
:1940 Author Organization [facility] Address [address] [place] [address] Care Team Providers Name Role Phone Unavailable Primary Care Provider Unavailable Encounter Details Date Type Department Care Team Description 06/30/2017 Ancillary Department of Flavio, Cataract Senil e Nuclear Sclerosis Right (Primary Dx); Procedure Ophthalmology in Fabricio Soares M.D. Cataract Senile Nuclear Sclerosis [address] [phone] Social History Tobacco Use Types Packs/Day [...] esults for this BIOMETRY (OCB) - OU RAIL TECHNICIAN Nuclear Sclerosis pro cedure are in - BOTH EYES Right the results Cataract Senile section. Nuclear Sclerosis Left CORNEAL TOPOGRAPHY - Routine 06/30/2017 11:15 AM Cataract Eugenia le Results for this OU - BOTH EYES RAIL TECHNICIAN Nuclear Sclerosis procedur e are in Right the results Cataract Senile section. Nuclear Sclerosis Left documented in this encounter Results Ocular Coherence Biometry (OCB) - OU - Both Eyes (06/30/2017 11:17 AM RAIL TECHNICIAN) Specimen (Source) Anatomical Location Collection Method / Collectio n Time Received Time / Laterality Volume Raymundo Paz M.D. - 08/15/2017 9: 49 AM CDT MODALITY Right Eye The modality was IOL Master. Left Eye The modality was IOL Master. IOL MEASUREMENTS Right Eye IOL Measurements: Axial length was 24.11 mm. K-1 was 42.48 diopters. K1 Ruth was 112.00 degrees. K-2 was 43.43. K2 Ruth was 22.00 degrees. WTW was 11.80 mm. ACD was 2.59 mm. Lens thicknes s was 5.43 mm. Left Eye IOL Measurements: Axial length was 23.66 mm. K-1 was 42.90 diopters. K1 Ruth was 74.00 degrees. K-2 was 43.60. K 2 Ruth was 164.00 degrees. WTW was 11.90 mm. ACD was 2.67 mm. Lens thicknes s was 5.22 mm. Raymundo Muniz M.D. OPHTH PHOTOGRAPHY Corneal Topography - OU - Both Eyes (06/30/2017 11:15 AM RAIL TECHNICIAN) Specimen (Source) Anatomical Location Collection Method [...]
--- OUTSIDE RECORDS SUMMARY | 2022-04-11 08:11 | XMS_ITS | Encounter Summary ---
:1940 Author Organization [facility] Address [address] [place] [address] Care Team Providers Name Role Phone Unavailable Primary Care Provider Unavailable Reason for Visit Reason Comments Communication Encounter Details Date Type Department Care Team Description 06/30/2017 Clinical Communication Department of Gena Quinn mmunication Ophthalmology in Fabricio Matthews R.N. [place], [place] 701 [facility] 701 [place] [phone] Social History Tobacco Use Types Packs/Day Years Used Date Smoking Tobacco: Former Smokeless Tobacco: Never Alcohol Use Standard Drinks/Week Comments No 0 (1 standard drink = 0.6 oz pure alcoho l) Sex Assigned at Date Recorded Not on file documented as of this encounter Miscellaneous Notes Telephone Encounter - Tammy Maria C.O.A. - 06/30/2017 2:36 PM CST Ketorolac was sent to the pharmacy IFIED TECHNICIAN SPECIALIST Telephone Encounter - Gena Quinn R.N. - 06/30/2017 11:37 AM CST Patient is scheduled for cataract surgery 07/07/17, but he did not receive his Diclofenac. Please [facility] in [place]. IFIED TECHNICIAN SPECIALIST documented in this encounter Plan of Treatment Not on filedocumented as of this encounter Visit Diagnoses Not on filedocumented in this encounter Additional Health Concerns Assessment Noted Time PHQ-9 Depression Total Score: 2 03/08/2015 11:16 AM CS T documented as of this encounter
--- OUTSIDE RECORDS SUMMARY | 2022-04-11 08:12 | XMS_ITS | Encounter Summary ---
:1940 Author Organization [facility] Address [address] [place] [address] Care Team Providers Name Role Phone Unavailable Primary Care Provider Unavailable Encounter Details Date Type Department Care Team Description 02/16/2016 Hospital Encounter HX [facility] Rodger Miranda M.D. [address] [place], [place] [phone] (Wo rk) Social History [...] Duenas M.D. - 02/16/2016 8:29 AM CDT [id number] CHIEF COMPLAINT/REASON FOR VISIT Follow up status [...] DUENAS MD On: 02/19/2016 07:40 AM Source: [facility] MHSDOLBEYNONRADSYS Document Id: [id number] documented in this encounter Miscellaneous Notes Miscellaneous - Marv Duenas M.D. - 02/16/2016 9:19 AM CDT Ambulatory Patient Summary [facility] [address], [address] [place] [phone] Visit Information Name: RYLEY VINES [facility] Number: [id number] Current Date: 02/16/2016 09:19:18 Physicians [...] if you dont have one. Go to [email or web address] and click on Create Your Account. Then, follow the directions to complete the online form. Youll be asked for your [facility] number which you can find at the top of this document. Your Goals/Additional instructions: Source: [facility] POWERCHART Document Id: [id number] Miscellaneous - Marv Duenas M.D. - 02/16/2016 9:19 AM CDT Ambulatory Discharge Medication List [facility] [address] [place], [address] [place], [place] [phone] Visit Information Name: RYLEY VINES [facility] Number: [id number] Current Date: 02/16/2016 09:19:18 Attending [...] MD Signed On:16-FEB-2016 09:19:16 Additional Information: Source: [facility] POWERCHART Document Id: [id number] Miscellaneous - Colleen Sarabia L.P.N. - 02/16/2016 8:46 AM CDT Adult Refinery Pipeline Operator Intake/History Adult Refinery Pipeline Operator Intake/History Entered On: 02/16/2016 8:47 CDT Performed On: 02/16/2016 8:46 CDT by COLLEEN SARABIA LPN Intake Chief Complaint : Pt here for frc on rgiht TSA COLLEEN SARABIA LPN - 02/16/2016 8:46 CDT General Info Information Given By : Patient Languages : Djiboutian Is Patient Female and 13-50 no hysterectomy [...] SARABIA LPN - 02/16/2016 8:46 CDT Source: [employer] Document Id: [id number] CDT!21 documented in this encounter Plan of Treatment Not on filedocumented as of this encounter Visit Diagnoses Not on filedocumented in this encounter Additional Health Concerns Assessment Noted Time PHQ-9 Depression Total Score: 2 03/08/2015 11:16 AM CS T documented as of this encounter
--- OUTSIDE RECORDS SUMMARY | 2022-04-11 08:12 | XMS_ITS | Encounter Summary ---
:1940 Author Organization [facility] Address [address] [place] [address] Care Team Providers Name Role Phone Unavailable [...] 10:46 Resu lts for this VIEWS AM SUBASSEMBLER procedure are i n the results section. DX THORACOLUMBAR SPINE Routine 04/11/2008 10:43 R esults for this SCOLIOSIS AP AND AM SUBASSEMBLER procedure a re in LATERAL 2 VIEWS the results section. documented in this encounter Results DX Thoracic Spine 2 Views (04/11/2008 10:46 AM SUBASSEMBLER) Anatomical Region Laterality Modality Thoracic Spine N/A Radiographic Imaging Specimen (Source) Anatomical Collection Method Collection Time Re ceived Time Location / / Volume Laterality 04/11/2008 10:46 AM SUBASSEMBLER Narrative 04/11/2008 10:56 AM SUBASSEMBLER 11-Apr-2008 10:46:00 ??Exam: Sp Thor*2vw AP/Lat STDG Indications: T1-3 fx ORIGINAL REPORT - 11-Apr-2008 10:56:00 Sp Thor*2vw AP/Lat STDG: Compression fracture T4 and possibly T3 unchanged from 04-10-08. Electronically signed by: ?? Rolf Bowden M.D. ??[id number] 11-Apr-2008 10: 56 Procedure Note Brandon Bowden M.D. - 08/04/2017Forma tting of this note might be different from the original. 11-Apr-2008 10:46:00 Exam: Sp Thor*2vw A P/Lat STDG Indications: T1-3 fx ORIGINAL REPORT - 11-Apr-2008 10:56:00 Sp Thor*2vw AP/Lat STDG: Compression fracture T4 and possibly T3 unchanged from 04-10-08. Electronically signed by: Rolf Bowden M.D. 811-Apr-2008 10:56 Wellington Putnam M.D. IMG DIAGNOSTIC IMAGING PROCE PONCHO DX Thoracolumbar Spine Scoliosis AP and Lateral 2 Views (04/11/2008 10:43 AM SUBASSEMBLER) Anatomical Region Laterality Modality Thoracic Spine, Lumbar Spine N/A Radiographi c Imaging Specimen (Source) Anatomical Collection Method Collection Time Re ceived Time Location / / Volume Laterality 04/11/2008 10:43 AM SUBASSEMBLER Narrative 04/11/2008 10:55 AM SUBASSEMBLER 11-Apr-2008 10:43:00 ??Exam: Sp*Scoliosis 2vw AP/Lat Indications: scoli 1 and 6 standing in brace ?? thoracic compression fx ORIGINAL REPORT - 11-Apr-2008 10:55:00 Sp*Scoliosis 2vw AP/Lat: Metallic prosthesis overlying the thorac ic and upper lumbar spine. No scoliosis appreciated. Electronically signed by: ?? Rolf Bowden M.D. ??8-0 11-Apr-2008 10: 55 Procedure Note Brandon Bowden [...] appreciated. Electronically signed by: Rolf Bowden M.D. 8-0 11-Apr-2008 10:55 Wellington Putnam M.D. IMJulienne DIAGNOSTIC IMAGING PROCE DURGLEN documented in this encounter Visit Diagnoses Not on filedocumented in this encounter
--- OUTSIDE RECORDS SUMMARY | 2022-04-11 08:12 | XMS_ITS | Encounter Summary ---
:[address] [facility] Address [address] [place] [address] Care Team Providers Name Role Phone Unavailable [...]
--- OUTSIDE RECORDS SUMMARY | 2022-04-11 08:12 | XMS_ITS | Encounter Summary ---
:1940 Author Organization [facility] Address [address] [place] [address] Care Team Providers Name Role Phone Unavailable Primary Care Provider Unavailable Encounter Details Date Type Department Care Team Description 03/08/2015 Hospital Encounter HX [facility] Oh Lynch M.D. [address] [place] [phone] (Wo rk) Social History Tobacco [...] CST PHQ-9 PHQ-9 Entered On: 03/08/2015 11:16 HIMS CODER Performed On: 03/08/2015 11:16 HIMS CODER by KEI GONZALEZ RN PHQ-9 Little interest [...] 2 KEI GONZALEZ RN - 03/08/2015 11:16 HIMS CODER Source: [employer] Document Id: [id number] HIMS CODER!12 CODER Miscellaneous - Kei Gonzalez R.N. - 03/08/2015 10:55 AM CST Geremias 03/23/15 From: KEI GONZALEZ RN ([facility] Surgery Nurse Catheter Finisher And Inspector) To: Anesthesia; Sent: 03/08/2015 10:55:18 HIMS CODER Subject: Geremias 03/23/15 SURGERY NURSE SUPERVISOR CELL MAINTENANCE Skin Alert Assessment: Complete this section only [...] Yes Comment: _ Do you have any episcopalian or other objection to having a blood transfusion? (x)No (_)Yes Scheduling Follow-Up: Criminal Justice Instructor requested: (x) N/A (_) Yes Comment: _ [...] then no styling products in the hair. -nascar driver required for same day surgery patients, [...] planners, completed PHQ 9 and gave patient [facility] Shoulder Replcement Surgery, Patient Education (_)Reviewed parental presence program (_)Reviewed tonsillectomy teaching sheet (_)Reviewed ear tube teaching sheet (_)Pre op PT appt (total shoulders only) Post op appointments: 1st po with surgeon or physician ophthalmic assistant: (x) made (_)TBD (_)Audiology appointment (PE tubes), (_)2 days post op ultrasound to r/o DVT (VNUS closure), (_)PO OT appt made (Hand surgery if requested) Source: [facility] POWERCHART Document Id: [id number] documented in this encounter Plan of Treatment Not on filedocumented as of this encounter Visit Diagnoses Not on filedocumented in this encounter Additional Health Concerns Assessment Noted Time PHQ-9 Depression Total Score: 2 03/08/2015 11:16 AM CS T documented as of this encounter
--- OUTSIDE RECORDS SUMMARY | 2022-04-11 08:12 | XMS_ITS | Encounter Summary ---
:1940 Author Organization [facility] Address [address] [place] [address] Care Team Providers Name Role Phone Unavailable Primary Care Provider Unavailable Encounter Details Date Type Department Care Team Description 04/07/2015 Hospital Encounter HX [facility] Rodger Miranda M.D. [address] [place], [place] [phone] (Wo rk) Social History [...] Duenas M.D. - 04/07/2015 8:32 AM CST [id number] CHIEF COMPLAINT/REASON FOR VISIT Follow up right [...] DUENAS MD On: 04/07/2015 12:30 PM Source: [facility] MHSDOLBEYNONRADSYS Document Id: [id number] CTICIDE EXPERT documented in this encounter Miscellaneous Notes Miscellaneous - Marv Duenas M.D. - 04/07/2015 8:57 AM CST Ambulatory Patient Summary [facility] [address], [address] [place] [phone] Visit Information Name: RYLEY VINES [facility] Number: [id number] Current Date: 04/07/2015 08:57:05 Physicians [...] if you dont have one. Go to [email or web address] and click on Create Your Account. Then, follow the directions to complete the online form. Youll be asked for your [facility] number which you can find at the top of this document. Your Goals/Additional instructions: Source: [facility] POWERCHART Document Id: [id number] CTICIDE EXPERT Miscellaneous - Marv Duenas M.D. - 04/07/2015 8:57 AM CST Ambulatory Discharge Medication List [facility] [address], [address] [place], [place] [phone] Visit Information Name: RYLEY VINES [facility] Number: [id number] Visit Date: 04/07/2015 08:57:04 Attending [...] MD Signed On:07-APR-2015 08:56:51 Additional Information: Source: [facility] POWERCHART Document Id: [id number] CTICIDE EXPERT Miscellaneous - Brodie Nielsen, L.P.N. - 04/07/2015 8:43 AM CST Adult Timber Buyer Intake/History Adult Timber Buyer Intake/History Entered On: 04/07/2015 8:43 INSECTICIDE EXPERT Performed On: 04/07/2015 8:43 INSECTICIDE EXPERT by BRODIE NIELSEN LPN Intake Chief Complaint : po rigfht shoulder BRODIE NIELSEN LPN - 04/07/2015 8:43 INSECTICIDE EXPERT General Info Information Given By : Patient Languages : Taiwanese Is Patient Female and 13-50 no hysterectomy : No BRODIE NIELSEN LPN - 04/07/2015 8:43 INSECTICIDE EXPERT Subjective Pain Symptoms : No BRODIE NIELSEN LPN - 04/07/2015 8:43 INSECTICIDE EXPERT Dependent Habits Exposure to Tobacco Smoke : Other: former Smoking Status : Former smoker Tobacco 2A : Yes Tobacco Use/Currently Using : No Tobacco Use/Last 30 Days : No Tobacco Use/Last 12 months : No BRODIE NIELSEN LPN - 04/07/2015 8:43 INSECTICIDE EXPERT Caffeine Use Grid Caffeine Use : Current Type : Coffee Frequency : Daily BRODIE NIELSEN LPN - 04/07/2015 8:43 INSECTICIDE EXPERT Source: [employer] Document Id: [id number] INSECTICIDE EXPERT!21 CTICIDE EXPERT documented in this encounter Plan of Treatment Not on filedocumented as of this encounter Visit Diagnoses Not on filedocumented in this encounter Additional Health Concerns Assessment Noted Time PHQ-9 Depression Total Score: 2 03/08/2015 11:16 AM CS T documented as of this encounter
--- OUTSIDE RECORDS SUMMARY | 2022-04-11 08:12 | XMS_ITS | Encounter Summary ---
:1940 Author Organization [facility] Address [address] [place] [address] Care Team Providers Name Role Phone Unavailable Primary Care Provider Unavailable Encounter Details Date Type Department Care Team Description 03/23/2015 - Hospital Encounter HX [facility] Ana Rosa English, 03/24/2015 ALEX [address] [place] [address] Social History Tobacco Use Types Packs/Day Years Used Date Smoking Tobacco: Never Assessed Sex Assigned at Date Recorded Not on file documented as of this encounter Last Filed Vital Signs Vital Sign Reading Time Taken Comments Blood Pressure 134/82 03/24/2015 8:13 AM SUPERVISOR BINDERY Pulse 105 03/24/2015 8:13 AM SUPERVISOR BINDERY Temperature - - Respiratory Rate 16 03/24/2015 7:17 AM SUPERVISOR BINDERY Oxygen Saturation - - Inhaled Oxygen Concentration - - Weight 70.5 kg (155 lb 6.8 oz) 03/24/2015 4:10 AM SUPERVISOR BINDERY Height 167 cm (5' 5.75) 03/24/2015 8:13 AM SUPERVISOR BINDERY Body Mass Index 25.28 03/24/2015 4:10 AM SUPERVISOR BINDERY documented in this encounter Discharge Summaries Laine [...] DAY PA-C On: 04/17/2015 12:31 PM Source: [facility] POWERZoned Nutrition Document Id: [id number] RVISOR BINDERY Owen Vega, RLaraN. - 03/24/2015 10:21 AM CST Discharge Summary Discharge Summary Entered On: 03/24/2015 10:22 SUPERVISOR BINDERY Performed On: 03/24/2015 10:21 SUPERVISOR BINDERY by OWEN VEGA RN DC Information Discharged to : Home independently, Home with family care Current Home Treatments : Wound USP Equipment : Other: sling Professional Skilled Services : None Special Services and Community Resources : None Mode of Discharge : Wheelchair Discharge Transportation : Private vehicle Accompanied By : Nurse Date/Time of Discharge : 03/24/2015 10:22 SUPERVISOR BINDERY OWEN VEGA RN - 03/24/2015 10:21 SUPERVISOR BINDERY Valuables/Belongings Belongings Sent Home With : wiith patient OWEN VEGA RN - 03/24/2015 10:21 SUPERVISOR BINDERY Source: [facility] POWERCHART Document Id: [id number] SUPERVISOR BINDERY!13 RVISOR BINDERY documented in this encounter Medications at Time [...] Therapy Initial Evaluation Entered On: 03/24/2015 9:47 SUPERVISOR BINDERY Performed On: 03/24/2015 9:42 SUPERVISOR BINDERY by AMAIRANI MCKOY PT General Info Reason for Referral to Physical Therapy : Decreased safety, Pain, Patient/Caregiver education Physical Therapy Orders : Physical Therapy Evaluate & Treat - 03/23/15 12:16:00 SUPERVISOR BINDERY, Post Op therapy, s/p TSA Precautions to Rehabilitation Treatment : s/p rTSA, ostoeporosis Pain Symptoms : No Orientation : Oriented x 3 Safety/Judgment : Impaired Basic Command Following : Impaired AMAIRANI MCKOY PT - 03/24/2015 9:42 SUPERVISOR BINDERY Musculoskeletal PT Range of Motion Grid Left Upper Extremity : Active Within Normal Limits Right Upper Extremity : Other AMAIRANI MCKOY PT - 03/24/2015 9:42 SUPERVISOR BINDERY Right UE Range of Motion Detailed : flex 0-90, ER to neutral. , wrist/hand /elbow WFL Left Upper Extremity Strength : Other: WFL for bed mob and transfer Right Upper Extremity Strength : Other: held due to surgical precautions AMAIRANI MCKOY PT - 03/24/2015 9:42 SUPERVISOR BINDERY Balance/Mobility Sitting/Standing Balance Grid Sitting Balance : Good Standing Balance : Good AMAIRANI MCKOY PT - 03/24/2015 9:42 SUPERVISOR BINDERY Neuro Coordination : Normal AMAIRANI MCKOY PT - 03/24/2015 9:42 SUPERVISOR BINDERY Assessment Rehabilitation Potential : Good PT Problem List : Pain limiting function, Strength/Range of motion deficits PT Clinical Assessment : Pt plans to have family assist at home and follow up with Jose Luis [facility]. Guidelines for shoulder rehab given to pt and . observed HEP and pt's self AROM. AMAIRANI MCKOY PT - 03/24/2015 9:42 SUPERVISOR BINDERY Goals PT Patient/Caregiver Goal : return home Patient Will Tolerate PROM : Yes AMAIRANI MCKOY PT - 03/24/2015 9:42 SUPERVISOR BINDERY Plan PT Frequency : Daily, Discontinue PT Duration : One day PT Anticipated Treatments : Therapeutic exercise PT Plan/Goals Established w Pt/Caregiver : Yes AMAIRANI MCKOY PT - 03/24/2015 9:42 SUPERVISOR BINDERY DC Recommendations Discharge To, Anticipated : Home with family care PT Other Treatment : Yes AMAIRANI MCKOY PT - 03/24/2015 9:42 SUPERVISOR BINDERY Treatment Therapeutic Activities/Exercise Provided : Yes PT [...] appt. AMAIRANI MCKOY PT - 03/24/2015 9:42 SUPERVISOR BINDERY Ther Activities/Exercise Therapeutic Exercises Performed : Other: instruction in reverse TSA ex adn precautions but pt has a hard time concentrating. written ex and observed PROM 10reps flex 0-90 without resistance felt at endrange and eR to neutral. AMAIRANI MCKOY PT - 03/24/2015 9:42 SUPERVISOR BINDERY Education PT Education Grid Topics : Exercise program, Physical Therapy plan of care Individuals Taught : Patient, Spouse Barriers to Learning : Difficulty concentrating Teaching Method : Demonstration, Explanation, Printed materials Teaching Evaluation : Returns demonstrations correctly, Verbalizes understanding AMAIRANI MCKOY PT - 03/24/2015 9:42 SUPERVISOR BINDERY PT Charge Registration Status - PT : Inpatient: Hospital/TCU Physical Therapy Evaluation Charges : Yes Therapeutic Exercise Minutes : 13 minute(s) Therapeutic Exercise Charges : 1 units AMAIRANI MCKOY PT - 03/24/2015 9:42 SUPERVISOR BINDERY Source: [facility] POWERCHART Document Id: [id number] SUPERVISOR BINDERY!58 RVISOR BINDERY Grecia Ling APRN, C.N.P., M.S.N. - 03/24/2015 9:21 AM CST Hospital Progress Note (SOAP) Document Contains Addenda Addendum by KAREL CORONEL MD on 24 March 2015 11:35:25 SUPERVISOR BINDERY Patient has been independently examined by me, [...] Total: 0.6 03/24/15 DIAGNOSTIC RESULTS 23-Mar-2015 12:15 [facility] PROCEDURE: Shoulder 1vw RIGHT COMPARISON: None. IMPRESSION: [...] FOOTNOTES [1]XR Shoulder Right 1 view portable; DANE CHANDRAKANTGINA Wei(R)(CT)Sanjuana(R) 03/23/2015 12:06 SUPERVISOR BINDERY Electronically Signed By: GRECIA ALEMAN APRN C.N.PLara, M.S.N On: 03/24/2015 09:42 AM Source: [employer] Document Id: [id number] RVISOR BINDERY Ana Rosa Dodson M.D. - 03/24/2015 7:27 AM CST POD#1 s/p R rTSA Pt doing well this am. Pain controlled with the block. Denies any issues. Ready for PT and looking forward to discharge home. AOx3, NAD R shoulder dressing c/d/i. 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 Hgb 12.5 Plan: -Sling, PT -No IR of the shoulder -oral pain meds -Dispo: likely d/c home today with catheter in place. Electronically Signed By: ANA ROSA DODSON MD On: 03/24/2015 07:29 AM Source: [employer] Document Id: [id number] RVISOR BINDERY documented in this encounter Procedure Notes Brandi Millard RLaraN. - 03/23/2015 6:38 AM CST Preprocedure Checklist Preprocedure Checklist Entered On: 03/23/2015 6:54 SUPERVISOR BINDERY Performed On: 03/23/2015 6:38 SUPERVISOR BINDERY by BRANDI MILLARD RN Checklist Last Fluid Intake : 03/23/2015 5:00 SUPERVISOR BINDERY Last Food Intake : 03/22/2015 18:00 SU[employer]VISOR BINDERY Surgical Preparation : N/A BRANDI MILLARD RN - 03/23/2015 6:38 SUPERVISOR BINDERY Surgery Prep Grid Contacts/Glasses Removed : Yes Dentures Removed : Yes (Comment: partial lower, full upper [BRANDI MILLARD RN - 03/23/2015 6:38 SUPERVISOR BINDERY] ) Hairpins/Hairpiecies Removed : NA Hearing Aid Removed : Yes Home Prep Complete : NA Jewelry/Piercing Removed : Yes Makeup/Nail Romansh Removed : NA Oral Hygiene : NA Preop Scrub AM of Surgery : Yes Preop Scrub Night Prior to Surgery : Yes Prosthesis Removed : NA Tampon Removed : NA Verified - No hair products used : NA Voided national coverage specialist to procedure : Yes Wearing Patient Gown : Yes BRANDI MILLARD RN - 03/23/2015 6:38 SUPERVISOR BINDERY Patient Rights Grid Blood Consent Signed : Yes Surgical/Procedure Consent Signed : Yes BRANDI MILLARD RN - 03/23/2015 6:38 SUPERVISOR BINDERY Family Location : Astrid BRANDI MILLARD RN - 03/23/2015 6:38 SUPERVISOR BINDERY Checklist II Patient Safety Grid Allergy Band on and Verified : Yes (Comment: none [BRANDI MILLARD RN - 03/23/2015 6:38 SUPERVISOR BINDERY] ) Anesthesia Consult : Yes Band on for Limb Alert : NA Blood Band on and Verified : NA Current ECG in Medical Record : Yes Current H&P in Medical Record : Yes Implants Verified : Yes (Comment: none [BRANDI MILLARD RN - 03/23/2015 6:38 SUPERVISOR BINDERY] ) Medication Reconciliation on Chart : Yes [...] : BRANDI SALAZAR RN - 03/23/2015 6:38 SUPERVISOR BINDERY RN Who Verified Site : BRANDI MILLARD RN Physician Who Verified Site : ANA ROSA DODSON MD, TAMMARA RN - 03/23/2015 6:38 SUPERVISOR BINDERY SORAYA Screening Known Obstructive Sleep Apnea : No - NOT diagnosed with SORAYA SORAYA Score : No qualifying data available. SORAYA Results : No qualifying data available. BRANDI MILLARD RN - 03/23/2015 6:38 SUPERVISOR BINDERY SORAYA Assessment Do you have high blood [...] 3 BRANDI MILLARD RN - 03/23/2015 6:38 SUPERVISOR BINDERY Advance Directive Advanced Directives : No Advance Directive Additional Information : No BRANDI MILLARD RN - 03/23/2015 6:38 SUPERVISOR BINDERY Vital Signs Temperature Core : 36.7 DegC(Converted [...] kg/m2 BRANDI MILLARD RN - 03/23/2015 6:38 SUPERVISOR BINDERY OR Environmental Conservation Officer Checklist Images Present and Correct : Yes Special Equipment Present : Yes Implants Present : Yes Rep Required and Present : Yes Blood Components Present : N/A JOAQUINA CALDERON RN - 03/23/2015 7:30 SUPERVISOR BINDERY [facility] [employer] [facility] POWERCHART Document Id: [id number] SUPERVISOR BINDERY!7 RVISOR BINDERY documented in this encounter Consult Notes Karel Coronel - 03/23/2015 12:00 AM CST [id number] Patient has undergone a right shoulder rotator [...] [facility] [place] [facility] Has quit taking his aspirin 5 [...] CORONEL MD On: 03/23/2015 03:24 PM Source: [facility] MHSDOLBEYNONRADSYS Document Id: [id number] RVISOR BINDERY documented in this encounter Nursing Notes Alex Colon L.SShukri - 03/24/2015 9:51 AM CST Rose Grading Supervisor/Discharge Planning Rose Grading Supervisor/Discharge Planning Entered On: 03/24/2015 10:13 SUPERVISOR BINDERY Performed On: 03/24/2015 9:51 SUPERVISOR BINDERY by ALEX COLON Assessment Rose Grading Supervisor Needs : Rose Grading Supervisor Assessment Follow in Interdisciplinary Team : Yes Referral : Auto Information Obtained From : Patient Languages : Cypriot Mental Status : Alert ALEX COLON - 03/24/2015 9:51 SUPERVISOR BINDERY Advance Directive Advanced Directives : No Advance Directive Additional Information : No ALEX COLON - 03/24/2015 9:51 SUPERVISOR BINDERY Psychosocial Domestic Abuse Concerns : None Safe Place to Go : Yes Agency Notified of Domestic Concerns : None Marital Status : Years of Marriage : Astrid [phone] Number of Children : 4 kids: Ginette, Yuval and [facility] Emotional Support Available : Yes Behavioral Health Screen/Safety Assmt : No Advent Preference : [place] COLONИВАНALEX M [facility] 03/24/2015 9:51 SUPERVISOR BINDERY Dependent Habits Tobacco Use/Currently Using : No Exposure to Tobacco Smoke : Other: former Smoking Status : Unknown if ever smoke RYLIEPHILIPPИВАНALEX M [facility] 03/24/2015 9:51 SUPERVISOR BINDERY Tobacco Use Grid Other Tobacco Frequency : no ALEX COLON [facility] 03/24/2015 9:51 SUPERVISOR BINDERY Caffeine Use Grid Caffeine Use : Current Type : Coffee Frequency : Daily ISAIAH ALEX M [facility] 03/24/2015 9:51 SUPERVISOR BINDERY DC Needs Plan for Discharge : Pt plans to return home with his Astrid who will be with him upon discharge and will be transporting him. He will do outpt PT at [facility]. Home Equipment, Anticipated : Dressing device RYLIEPHILIPPИВАНALEX M [facility] 03/24/2015 9:51 SUPERVISOR BINDERY Discharge Planning Discharge Options Discussed with Patient : Discharge transportation, Home Health, Rehabilitation Unit ALEX COLON [facility] 03/24/2015 9:51 SUPERVISOR BINDERY Source: [facility] POWERCHART Document Id: [id number] SUPERVISOR BINDERY!38 RVISOR BINDERY Ankita Lynch RSelvin - 03/24/2015 4:12 AM CST Cardiac Monitoring Cardiac Monitoring Entered On: 03/24/2015 4:13 SUPERVISOR BINDERY Performed On: 03/24/2015 4:12 SUPERVISOR BINDERY by ANKITA LYNCH RN Cardiac Monitoring Monitoring Lead : III, V1/MCL1 Atrial Rate : 68 bpm Atrial Rhythm : Regular Ventricular Rate : 68 bpm Ventricular Rhythm : Regular IL Interval : 0.19 P to QRS Ratio : 1:1 QRS Duration : 0.08 second(s) QT Interval : 0.40 second(s) IL Consistency : Consistent QRS Consistency : Consistent ST Segment : Isoelectric Ectopy Frequency : None Cardiac Rhythm Tech : Sinus rhythm ANKITA LYNCH RN - 03/24/2015 4:12 SUPERVISOR BINDERY Source: [employer] Document Id: [id number] SUPERVISOR BINDERY!16 RVISOR BINDERY Alma Teixeira R.N. - 03/24/2015 3:24 AM CST PRN Response PRN Response Entered On: 03/24/2015 3:24 SUPERVISOR BINDERY Performed On: 03/24/2015 3:24 SUPERVISOR BINDERY by ALMA TEIXEIRA RN PRN Medication Effectiveness Evaluation PRN Medication Effective : Yes ALMA TEIXEIRA RN - 03/24/2015 3:24 SUPERVISOR BINDERY Source: [employer] Document Id: [id number] SUPERVISOR BINDERY!3 RVISOR BINDERY Ankita Lynch R.N. - 03/24/2015 12:05 AM CST Cardiac Monitoring Document Has Been Updated Cardiac Monitoring Entered On: 03/24/2015 2:53 SUPERVISOR BINDERY Performed On: 03/24/2015 0:05 SUPERVISOR BINDERY by ANKITA LYNCH RN Cardiac Monitoring Monitoring Lead : III, V1/MCL1 Atrial Rate : 84 bpm Atrial Rhythm : Regularly irregular Ventricular Rate : 84 bpm Ventricular Rhythm : Regularly irregular IL Interval : 0.18 P to QRS Ratio : 1:1 QRS Duration : 0.07 second(s) QT Interval : 0.39 second(s) IL Consistency : Consistent QRS Consistency : Consistent ST Segment : Isoelectric Ectopy Frequency : None Cardiac Rhythm Tech : Sinus arrhythmia ANKITA LYNCH RN - 03/24/2015 2:56 SUPERVISOR BINDERY Source: [employer] Document Id: [id number] SUPERVISOR BINDERY!16 RVISOR BINDERY Gena Gonzalez R.N. - 03/23/2015 8:00 PM CST Cardiac Monitoring Cardiac Monitoring Entered On: 03/23/2015 20:10 SUPERVISOR BINDERY Performed On: 03/23/2015 20:00 SUPERVISOR BINDERY by GENA GONZALEZ RN Cardiac Monitoring Monitoring Lead : III, V1/MCL1 Atrial Rate : 95 bpm Atrial Rhythm : Regular Ventricular Rate : 95 bpm Ventricular Rhythm : Regular IL Interval : 0.19 QRS Duration : 0.07 second(s) QT Interval : 0.34 second(s) Ectopy Frequency : None Cardiac Rhythm Tech : Sinus rhythm GENA GONZALEZ RN - 03/23/2015 20:09 SUPERVISOR BINDERY [facility] Document Id: [id number] SUPERVISOR BINDERY!12 RVISOR BINDERY Daria Sousa R.N. - 03/23/2015 2:04 PM CST Cardiac Monitoring Cardiac Monitoring Entered On: 03/23/2015 14:15 SUPERVISOR BINDERY Performed On: 03/23/2015 14:04 SUPERVISOR BINDERY by DARIA SOUSA RN Cardiac Monitoring Monitoring Lead : III Monitoring Lead Laborer Syrup Machine : Initiated Atrial Rate : 61 bpm Atrial Rhythm : Regular Ventricular Rate : 61 bpm Ventricular Rhythm : Regular IL Interval : 0.22 P to QRS Ratio : 1:1 QRS Duration : 0.07 second(s) QT Interval : 0.45 second(s) (Comment: qtc 0.44 [DARIA SOUAS RN - 03/23/2015 14:14 SUPERVISOR BINDERY] ) IL Consistency : Consistent QRS Consistency : Consistent ST Segment : Isoelectric Ectopy Frequency : None Cardiac Rhythm Tech : First degree heart block DARIA SOUSA RN - 03/23/2015 14:14 SUPERVISOR BINDERY [facility] Document Id: [id number] SUPERVISOR BINDERY!17 RVISOR BINDERY Conversion, Historical Provider Ser - 03/23/2015 10:31 AM CST RWHO Main OR Nursing Record RWHO Main OR Nursing Record Summary Primary Physician: ANA ROSA DODSON MD Finalized Date/Time: 03/23/15 14:54:24 Pt. Name: RYLEY DURÁN /Sex: 1940 Male Med Rec #: [id number] Physician: ANA ROSA DODSON MD Financial #: [id number] Pt. Type: I Room/Bed: [facility] Admit/Disch: 03/23/15 06:16:56 - Institution: Allergies [...] 3 Case Attendee ANA ROSA DODSON MD, EVERETT M MD RITMIRE, CHARLES RN Role Performed Surgeon, Primary Medical Aides Teacher, First RN Environmental Conservation Officer - Primary Time In 03/23/15 08:00:00 03/23/15 [...] Scrub, First Certified Registered Student Registered Nurse Svp Marketing Nurse Svp Marketing Time In 03/23/15 08:00:00 03/23/15 08:00:00 03/23/15 08:00:00 Time Out 03/23/15 10:55:00 03/23/15 10:55:00 03/23/15 10:55:00 Relief? No No No See Anesthesia Record for Additional Attendees and Relief Times Last Modified By: JOAQUINA CALDERON RN, CHARLES RN RITMIRE, CHARLES RN 03/23/15 13:20:48 03/23/15 13:20:48 03/23/15 13:20:48 Entry 7 Entry 8 Entry 9 Case Attendee LAINE DAY PA-C, JENNIFER L LUND, RHODA D RN Role Performed Medical Aides Teacher, First Education Consultant RN Environmental Conservation Officer - Primary Time In 03/23/15 08:00:00 03/23/15 [...] [facility] OR Case Level Level 4 Wound Class Clean [...] integrity, JOAQUINA CALDERON RN, risk for impaired MYERS, HARDIK EMOTIONAL DISABILITIES TEACHER Body Position Supine Left Arm Position Padded, [...] RN 03/23/15 08:50:55 Cautery Entry 1 CauteryType [place] [facility] I.D. Number [id number] Coag Setting 50 Cut Setting 50 Grounding [...] JOHNSON, MICHAEL R MD Last Modified By: JOAQUINA CALDERON RN, CHARLES [...] 15MM INVERSE REVERSE Misc Shoulder Implants POS [id number] CANCELLOUS SCREW 4.5 X 18MM Implant Site Right Shoulder Right Shoulder Right Shoulder Diagrammer Lisa Lisa Lisa Catalog # [id number] (Diagrammer Item Number) Lot Number or [id number] Serial Number/ Hospital Load Number Size 15mm 18mm 30mm Quantity 1 1 1 Expiration Date Last Modified By: JOAQUINA CALDERON RN, CHARLES RN RITMIRE, CHARLES RN 03/23/15 14:45:08 03/23/15 14:45:08 03/23/15 14:45:08 Entry 4 Entry 5 Entry 6 Implant Identification Implant Description TM REVERSE 36MM Misc Shoulder Implants TM REVERSE 36MM POLY GLENOSPHERE LINER +0MM [id number] Implant Site Right Shoulder Right Shoulder Right Shoulder Diagrammer Lisa Lisa Lisa Catalog # [id number] (Diagrammer Item Number) Lot Number or [id number] Serial Number/ Hospital Load Number Size 36mm [...] Final Count Sponges Count Yes Yes Correct? [place] Yes Yes Count Correct? Instrument Count Yes [...] Unfinalizing Freetext Reason for Unfinalizing 03/23/15 14:44 [id number] Finish Documentation 03/23/15 14:50 [id number] Modify Pick List 03/23/15 14:53 [id number] Modify Pick List Source: [facility] POWERCHART Document Id: [id number] Brandi Millard R.N. - 03/23/2015 6:38 AM CST Influenza Immunization Asmt Influenza Immunization Asmt Entered On: 03/23/2015 6:55 SUPERVISOR BINDERY Performed On: 03/23/2015 6:38 SUPERVISOR BINDERY by BRANDI MILLARD RN Influenza Protocol Influenza Vaccine Exclusions : Patient has none of the below exclusions Influenza Patient Wants Vaccine : No - Refused/Order not placed BRANDI MILLARD RN - 03/23/2015 6:38 SUPERVISOR BINDERY Source: [employer] Document Id: [id number] SUPERVISOR BINDERY!4 RVISOR BINDERY documented in this encounter OR Notes Op [...] BURT MD On: 03/24/2015 02:13 PM Source: [employer] Document Id: [id number] RVISOR BINDERY Op Note - Iva Rader APRN, CRNA [...] RADER CRNA On: 03/23/2015 11:37 AM Source: [employer] Document Id: [id number] RVISOR BINDERY Op Note - Sangita Patiño CRNA - [...] PATIÑO CRNA On: 03/23/2015 07:39 AM Source: [facility] POWERCHART Document Id: [id number] RVISOR BINDERY Op Note - Ana Rosa Dodson M.D. - 03/23/2015 12:00 AM CST [id number] PREOPERATIVE DIAGNOSIS Right shoulder rotator cuff arthropathy. POSTOPERATIVE DIAGNOSIS Right shoulder rotator cuff arthropathy. PROCEDURE Right reverse total shoulder arthroplasty. IMPLANTS Lisa 15 mm post length trabecular metal base plate with a 36 Glenosphere, a 12 x 130 trabecular metal humeral stem with a 0 x 36 mm poly liner. SURGEON Ana Rosa Dodson MD LABEL STAMPER SURGEON Brant Lazo MD. I requested Dr. [...] and safe transport from the operative suite. LABEL STAMPER Laine Day PA-C. I requested Laine to [...] DODSON MD On: 03/23/2015 12:40 PM Source: [facility] MHSDOLBEYNONRADSYS Document Id: [id number] RVISOR BINDERY Op Note - Paul Burt M.D. - [...] MEDICAL/PROBLEM HISTORY weight 69 kg CAD s/p AR 2011- s/p SHAHAB middle RCA 2011 echo [...] BURT MD On: 03/21/2015 02:18 PM Source: [employer] Document Id: [id number] RVISOR BINDERY documented in this encounter Miscellaneous Notes Miscellaneous - Conversion, Historical Provider Ser - 03/24/2015 10:21 AM SUPERVISOR BINDERY Coding Summary-Paper Based CODING DATE: 04/04/[address] [facility] STATUS: * Discharged to Home or Self [...] SECONDARY: I25.10 Y Atherosclerotic heart disease of [place] coronary artery without angina pectoris R00.1 Y Bradycardia, unspecified M35.3 Y Polymyalgia rheumatica E78.5 Y Hyperlipidemia, unspecified I10 Y Essential (primary) hypertension K21.9 Y Gastro-esophageal reflux disease without esophagitis Z87.891 Personal history of nicotine dependence Z98.61 Coronary angioplasty status Z79.82 FDC (current) use of aspirin PROCEDURES DOCTOR NAME DATE [id number] Replacement of Right Shoulder ANA ROSA DODSON 03/23/2015 Joint with Reverse Ball and Socket Synthetic Substitute, Open Approach NOTE: The code number assigned matches the documented diagnosis and / or procedure in the patient's chart. However, the narrative phrase printed from the coding software may appear abbreviated, or result in slightly different terminology. Coded By: BALAJI DESOUZA Date Saved: 04/04/2015 12:12 pm Source: [employer] Document Id: [id number] Miscellaneous - Owen Vega R.N. - 03/24/2015 [...] at security quinones with metal detectors. ?? [id number] Inez Olivera, [address] [place] [address]. All rights reserved. This information is not [...] about how you use yournew shoulder. ?? 1957-[address] [place] [address]. All rights reserved. This information is not intended as a substitute for professional medical care. Always follow your healthcare professional's instructions. This document has images extracted. Please consider using [employer] for all your patient education needs. Source: [facility] POWERCHART Document Id: [id number] RVISOR BINDERY Rukhsanacellporsha - Jacquie Aranda - 03/24/2015 9:20 AM CST Hospital Patient Education The following Patient Education Materials have been given to the patient: Patient Education Materials: Source: [facility] Gone!CHART Document Id: [id number] RVISOR BINDERY Rukhsanacellaneous - Owen Vega, R.N. - 03/24/2015 9:15 AM CST Adult Ongoing Assessment Adult Ongoing Assessment Entered On: 03/24/2015 9:21 SUPERVISOR BINDERY Performed On: 03/24/2015 9:15 SUPERVISOR BINDERY by OWEN VEGA RN Respiratory Respiratory Patient Stated Symptoms : None Respirations : Unlabored Distress : None Respiratory Pattern : Regular All Lobes Breath Sounds : Clear Cough : None Sputum Amount : None Suction : None Airway : Patent OWEN VEGA MICKIE - 03/24/2015 9:15 SUPERVISOR BINDERY Cardiovascular CV Patient Stated Symptoms : None Heart Rhythm : Regular Heart Sounds ICU : S1S2 Antiembolism Device Yes/No : Yes Nail Bed Color : Bradley Capillary Refill : Less than 2 seconds Edema Assessment : No DELMAOWEN ARIAS MICKIE - 03/24/2015 9:15 SUPERVISOR BINDERY Radial Pulse, Left : 2+ Normal Radial Pulse, Right : 2+ Normal Dorsalis Pedis Pulse, Left : 2+ Normal Dorsalis Pedis Pulse, Right : 2+ Normal OWEN VEGA MICKIE - 03/24/2015 9:15 SUPERVISOR BINDERY Skin Color : Normal for ethnicity Skin Description : Dry Activity Tolerance : Minimal distress OWEN VEGA - 03/24/2015 9:15 SUPERVISOR BINDERY Antiembolism Device Antiembolism Device : Sequential Compression Device Antiembolism Device Laterality : Bilateral Compression Stockings : Knee High Antiembolism Device Status : On OWEN VEGA - 03/24/2015 9:15 SUPERVISOR BINDERY Neurological Neuro Patient Stated Symptoms : None Orientation : Oriented x 3, Appropriate for age Level of Consciousness : Alert Gait : Steady Swallowing Difficulty/Aspiration Risk : None Last Well Time Known : Not applicable OWEN VEGA MICKIE - 03/24/2015 9:15 SUPERVISOR BINDERY Pierre Coma Eye Opening Response Pierre : Spontaneously Best Verbal Response [place] : Oriented Best Motor Response Pierre : Obeys simple commands [place] Coma Score : 15 OWEN VEGA - 03/24/2015 9:15 SUPERVISOR BINDERY Oral Assessment Lips : Smooth, pink, moist, intact Gingiva : Bradley, smooth, moist, intact Tongue : Smooth, pink, moist, intact Teeth : Clean, no debris Saliva : Thin, watery, plentiful OWEN VEGA MICKIE - 03/24/2015 9:15 SUPERVISOR BINDERY Psycho/Emotional Affect/Behavior : Calm, Cooperative, Appropriate Pain Symptoms : No OWEN VEGA MICKIE - 03/24/2015 9:15 SUPERVISOR BINDERY Coping Grid Identifies effective strategies : Yes [...] Yes OWEN VEGA RN - 03/24/2015 9:15 SUPERVISOR BINDERY Safety Grid Vision, Hearing, Mobility Adequate to Meet Safety Needs : Yes OWEN VEGA RN - 03/24/2015 9:15 SUPERVISOR BINDERY Gastrointestinal GI Patient Stated Symptoms : None Abdomen Description : Obese, Symmetric Abdomen Palpation : Non-Tender, Soft Bowel Movement Last Date : 03/22/2015 SUPERVISOR BINDERY Bowel Sounds All Quadrants : Present OWEN VEGA RN - 03/24/2015 9:15 SUPERVISOR BINDERY Nutrition Appetite : Excellent Eating Difficulties : None Feeding Ability : Complete independence OWEN VEGA RN - 03/24/2015 9:15 SUPERVISOR BINDERY Genitourinary Patient Stated Symptoms : None Urine Color : Yellow Urine Description : Clear Urine Odor : Odorless Bladder Distention : Absent OWEN VEGA RN - 03/24/2015 9:15 SUPERVISOR BINDERY Integumentary Integumentary Patient Stated Symptoms : None Skin Integrity : Not intact Mucous Membrane Color : Bradley Mucous Membrane Description : Moist OWEN VEGA RN - 03/24/2015 9:15 SUPERVISOR BINDERY Conference Service Coordinator Integumentary - Grid Conference Service Coordinator : Sequential Compression Device OWEN VEGA RN - 03/24/2015 9:15 SUPERVISOR BINDERY Skin Color : Normal for ethnicity Skin Description : Dry Skin Temperature : Warm OWEN VEGA RN - 03/24/2015 9:15 SUPERVISOR BINDERY Incision/Wound Incision/Wound Care Grid Activity : Assessed Type : Surgical incision Location : Shoulder Laterality : Right Drainage : None Drainage Amount : None Surrounding Tissue : Intact OWEN VEGA RN - 03/24/2015 9:15 SUPERVISOR BINDERY Hawk Sensory Perception Hawk : No impairment Moisture Hawk : Rarely moist Activity Hawk : Walks occasionally Mobility Hawk : Slightly limited Nutrition Hawk : Excellent Friction and Shear Hawk : No apparent problem Hawk Score : 21 OWEN VEGA RN - 03/24/2015 9:15 SUPERVISOR BINDERY Musculoskeletal Musculoskeletal Patient Stated Symptoms : None OWEN VEGA RN - 03/24/2015 9:15 SUPERVISOR BINDERY Musculoskeletal Strength Grid Left Upper Extremity Right Upper Extremity Left Lower Extremity Right Lower Extremity Sensation : Normal Normal Normal Normal OWEN VEGA RN - 03/24/2015 9:15 SUPERVISOR BINDERY OWEN VEGA RN - 03/24/2015 9:15 SUPERVISOR BINDERY OWEN VEGA RN - 03/24/2015 9:15 SUPERVISOR BINDERY OWEN VEGA RN - 03/24/2015 9:15 SUPERVISOR BINDERY Peripheral IV Peripheral IV Assess/Intervention Grid Peripheral IV #1 Peripheral IV #2 IV Activity : Discontinue Start Number of Attempts : 1 Date of Insertion : 03/23/2015 SUPERVISOR BINDERY 03/23/2015 SUPERVISOR BINDERY IV Site : Forearm Antecubital Laterality : Left Left Catheter Size : 20 18 Catheter Type : Protective Site Condition : No complications Drainage Description : None Infiltration Score : 0 Phlebitis Score : 0 OWEN VEGA RN - 03/24/2015 9:15 SUPERVISOR BINDERY OWEN VEGA RN - 03/24/2015 9:15 SUPERVISOR BINDERY Hendrich II Fall Risk Confusion/Disorientation Hendrich : [...] 1 OWEN VEGA RN - 03/24/2015 9:15 SUPERVISOR BINDERY Safe Patient Handling Safe Pt Handling Independent : Yes - No equipment needed Safe Pt Handling Equipment Rec : No Equipment Needed OWEN VEGA RN - 03/24/2015 9:15 SUPERVISOR BINDERY Education General Patient Education Powergrid Topics : [...] understanding OWEN VEGA RN - 03/24/2015 9:15 SUPERVISOR BINDERY [facility] [employer] [facility] POWERCHART Document Id: [id number] SUPERVISOR BINDERY!162 RVISOR BINDERY Miscellaneous - Alma Teixeira R.N. - 03/24/2015 3:24 AM CST Adult Ongoing Assessment Adult Ongoing Assessment Entered On: 03/24/2015 3:31 SUPERVISOR BINDERY Performed On: 03/24/2015 3:24 SUPERVISOR BINDERY by ALMA TEIXEIRA RN Respiratory Respiratory Patient Stated Symptoms : None Respirations : Unlabored Distress : None Respiratory Pattern : Regular All Lobes Breath Sounds : Clear Cough : None Sputum Amount : None Suction : None Airway : Patent ALMA TEIXEIRA RN - 03/24/2015 3:24 SUPERVISOR BINDERY Cardiovascular CV Patient Stated Symptoms : None Heart Rhythm : Regular Antiembolism Device Yes/No : Yes Nail Bed Color : Bradley Capillary Refill : Less than 2 seconds Edema Assessment : No Monitored Rhythm : Yes Pacer : No Skin Color : Normal for ethnicity Skin Description : Normal Skin Temperature : Warm Activity Tolerance : Moderate distress ALMA TEIXEIRA RN - 03/24/2015 3:24 SUPERVISOR BINDERY Antiembolism Device Antiembolism Device : Sequential Compression Device Antiembolism Device Laterality : Bilateral Antiembolism Device Status : On ALMA TEIXEIRA RN - 03/24/2015 3:24 SUPERVISOR BINDERY Neurological Neuro Patient Stated Symptoms : None Orientation : Oriented x 3 Level of Consciousness : Alert Gait : Unable to assess Swallowing Difficulty/Aspiration Risk : None Last Well Time Known : Not applicable ALMA TEIXEIRA RN - 03/24/2015 3:24 SUPERVISOR BINDERY [place] Coma Eye Opening Response [place] : Spontaneously Best Verbal Response Pierre : Oriented Best Motor Response Pierre : Obeys simple commands [place] Coma Score : 15 ALMA TEIXEIRA RN - 03/24/2015 3:24 SUPERVISOR BINDERY Psycho/Emotional Affect/Behavior : Calm, Cooperative, Appropriate Pain Symptoms : No Feels Rested : Yes ALMA TEIXEIRA RN - 03/24/2015 3:24 SUPERVISOR BINDERY Coping Grid Identifies effective strategies : Yes [...] Yes ALMA TEIXEIRA RN - 03/24/2015 3:24 SUPERVISOR BINDERY Safety Grid Vision, Hearing, Mobility Adequate to Meet Safety Needs : Yes ALMA TEIXEIRA RN - 03/24/2015 3:24 SUPERVISOR BINDERY Gastrointestinal Abdomen Description : Flat Abdomen Palpation : Non-Tender Bowel Movement Last Date : 03/22/2015 SUPERVISOR BINDERY Bowel Sounds All Quadrants : Present Passing Flatus : Yes ALMA TEIXEIRA RN - 03/24/2015 3:24 SUPERVISOR BINDERY Nutrition Appetite : Good Eating Difficulties : None Feeding Ability : Complete independence ALMA TEIXEIRA RN - 03/24/2015 3:24 SUPERVISOR BINDERY Genitourinary Patient Stated Symptoms : None Urinary Elimination : Voiding, no difficulties Urine Color : Yellow Urine Description : Clear Urine Odor : Odorless ALMA TEIXEIRA RN - 03/24/2015 3:24 SUPERVISOR BINDERY Integumentary Skin Color : Normal for ethnicity Skin Description : Normal Skin Temperature : Warm ALMA TEIXEIRA RN - 03/24/2015 3:46 SUPERVISOR BINDERY Integumentary Patient Stated Symptoms : None Skin Turgor : Elastic Skin Integrity : Not intact Mucous Membrane Color : Bradley Mucous Membrane Description : Moist ALMA TEIXEIRA RN - 03/24/2015 3:24 SUPERVISOR BINDERY Conference Service Coordinator Integumentary - Grid Conference Service Coordinator : Sequential Compression Device ALMA TEIXEIRA RN - 03/24/2015 3:24 SUPERVISOR BINDERY Incision/Wound Incision/Wound Care Grid Activity : Assessed Type : Surgical incision Location : Shoulder Laterality : Right Drainage : None ALMA TEIXEIRA RN - 03/24/2015 3:24 SUPERVISOR BINDERY Hawk Sensory Perception Hawk : No impairment Moisture Hawk : Rarely moist Activity Hawk : Walks occasionally Mobility Hawk : Slightly limited Nutrition Hawk : Adequate Friction and Shear Hawk : No apparent problem Hawk Score : 20 ALMA TEIXEIRA RN - 03/24/2015 3:24 SUPERVISOR BINDERY Musculoskeletal Musculoskeletal Patient Stated Symptoms : Joint stiffness Activity Tolerance : Minimal distress ALMA TEIXEIRA RN - 03/24/2015 3:24 SUPERVISOR BINDERY Musculoskeletal Joint Asmt Ultragrid Joint Assessment #1 Location : Shoulder, right Assessment : No abnormalities ALMA TEIXEIRA RN - 03/24/2015 3:24 SUPERVISOR BINDERY Peripheral IV Peripheral IV Assess/Intervention Grid Peripheral IV #1 Peripheral IV #2 IV Activity : Discontinue Start Number of Attempts : 1 Date of Insertion : 03/23/2015 SUPERVISOR BINDERY 03/23/2015 SUPERVISOR BINDERY IV Site : Forearm Antecubital Laterality : Left Left Catheter Size : 20 18 Catheter Type : Protective Infiltration Score : 0 Phlebitis Score : 0 ALMA TEIXEIRA RN - 03/24/2015 3:24 SUPERVISOR BINDERY ALMA TEIXEIRA RN - 03/24/2015 3:24 SUPERVISOR BINDERY Hendrich II Fall Risk Confusion/Disorientation Hendrich : [...] 5 ALMA TEIXEIRA RN - 03/24/2015 3:24 SUPERVISOR BINDERY Safe Patient Handling Safe Pt Handling Independent : No Safe Pt Handling Supervision/Minimal Assistance : Yes - Unmotorized Equipment Safe Pt Handling Equipment Rec : Unmotorized Equipment ALMA TEIXEIRA RN - 03/24/2015 3:24 SUPERVISOR BINDERY Source: [employer] Document Id: [id number] SUPERVISOR BINDERY!5 RVISOR BINDERY Miscellaneous - Tanya Miller RLaraNLara - 03/23/2015 8:46 PM CST Adult Activities of Daily Living Adult Activities of Daily Living Entered On: 03/23/2015 20:49 SUPERVISOR BINDERY Performed On: 03/23/2015 20:46 SUPERVISOR BINDERY by TANYA MILLER RN ADLs I Activity [...] Bilateral TANYA MILLER RN - 03/23/2015 20:46 SUPERVISOR BINDERY ADLs II Bowel Movement Last Date : 03/22/2015 SUPERVISOR BINDERY Standard Safety : LOUISE/SCD/ED on per policy, Bed alarm ON, Bed in low position, Call device within reach, Gait belt, ID band check, Night light, Non-Slip footwear, Personal safety alarm ON, Rounds every 1 hour, Upper/Half-length side- rails up, Wheels locked TANYA MILLER RN - 03/23/2015 20:46 SUPERVISOR BINDERY I&O Oral Intake : 200 mL Urine Voided : 300 mL TANYA MILLER RN - 03/23/2015 20:46 SUPERVISOR BINDERY Source: [facility] POWERCHART Document Id: [id number] SUPERVISOR BINDERY!13 RVISOR BINDERY Miscellaneous - Tanya Miller R.N. - 03/23/2015 8:21 PM CST Adult Activities of Daily Living Adult Activities of Daily Living Entered On: 03/23/2015 20:23 SUPERVISOR BINDERY Performed On: 03/23/2015 20:21 SUPERVISOR BINDERY by TANYA MILLER RN ADLs I Patient Position : Sitting in chair GABRIEL TANYA MICKIE - 03/23/2015 20:21 SUPERVISOR BINDERY ADLs II Hygiene Assistance Grid Back Rub : Refused Oral Care : Moderate assistance Estefania Care : Independent GABRIEL TANYA MICKIE - 03/23/2015 20:21 SUPERVISOR BINDERY Bowel Movement Last Date : 03/22/2015 SUPERVISOR BINDERY Standard Safety : LOUISE/SCD/ED on per policy, Bed in low position, Call device within reach, Chair Alarm, Gait belt, ID band check, Night light, Non-Slip footwear, Personal safety alarm ON, Rounds every1 hour, Upper/Half-length side- rails up GABRIEL TANYA MICKIE - 03/23/2015 20:21 SUPERVISOR BINDERY I&O Oral Intake : 200 mL Urine Voided : 300 mL GABRIEL TANYA MICKIE - 03/23/2015 20:21 SUPERVISOR BINDERY ADLs Adult Nutrition Diet Type : Diet -- 03/23/15 12:16:00 SUPERVISOR BINDERY, Transition, advance to regular Feeding Assistance : Independent Dinner : 100 % GABRIEL TANYA MICKIE - 03/23/2015 20:21 SUPERVISOR BINDERY Source: [facility] Gone!CHART Document Id: [id number] SUPERVISOR BINDERY!17 RVISOR BINDERY Rukhsanacellporsha - Tanya Miller R.N. - 03/23/2015 5:00 PM CST Adult Activities of Daily Living Adult Activities of Daily Living Entered On: 03/23/2015 17:01 SUPERVISOR BINDERY Performed On: 03/23/2015 17:00 SUPERVISOR BINDERY by TANYA MILLER RN ADLs I Patient Position : Sitting in chair TANYA MILLER RN - 03/23/2015 17:00 SUPERVISOR BINDERY ADLs II Bowel Movement Last Date : 03/22/2015 SUPERVISOR BINDERY Standard Safety : LOUISE/SCD/DE on per policy, Bed in low position, Call device within reach, Chair Alarm, Gait belt, ID band check, Night light, Non-Slip footwear, Personal safety alarm ON, Rounds every1 hour, Wheels locked TANYA MILLER RN - 03/23/2015 17:00 SUPERVISOR BINDERY Source: [facility] POWERCHART Document Id: [id number] SUPERVISOR BINDERY!6 RVISOR BINDERY Miscellaneous - Tanya Miller R.N. - 03/23/2015 4:00 PM CST Adult Postprocedure Assessment Adult Postprocedure Assessment Entered On: 03/23/2015 16:24 SUPERVISOR BINDERY Performed On: 03/23/2015 16:00 SUPERVISOR BINDERY by TANYA MILLER RN Vital Signs Temperature Core : 36.3 DegC(Converted to: 97.3 DegF) (LOW) Peripheral Pulse Rate : 61 /min Respiratory Rate : 20 /min Systolic Blood Pressure : 97 mmHg Diastolic Blood Pressure : 52 mmHg NIBP Mean : 67 mmHg (Comment: 64 [TANYA MILLER RN - 03/23/2015 16:22 SUPERVISOR BINDERY] ) BP Location : Left upper extremity SpO2 : 95 % Oxygen Saturation Monitoring Frequency : Continuous Oxygen Therapy : Room air Height : 167 cm(Converted to: 5 ft 6 inch(es)) TANYA MILLER RN - 03/23/2015 16:22 SUPERVISOR BINDERY General Level of Consciousness : Alert Orientation : Oriented x 3 Skin Color : Normal for ethnicity Skin Description : Dry Skin Temperature : Warm Pain Symptoms : No TANYA MILLER RN - 03/23/2015 16:22 SUPERVISOR BINDERY Incision/Wound Incision/Wound Care Grid Activity : Assessed Type : Surgical incision Location : Shoulder Laterality : Right Drainage Amount : None Wound Dressing : Other: Aqua cell and sling TANYA MILLER RN - 03/23/2015 16:22 SUPERVISOR BINDERY Source: [facility] POWERCHART Document Id: [id number] SUPERVISOR BINDERY!29 RVISOR BINDERY Miscellaneous - Tanya Miller R.N. - 03/23/2015 3:45 PM CST Adult Postprocedure Assessment Adult Postprocedure Assessment Entered On: 03/23/2015 16:22 SUPERVISOR BINDERY Performed On: 03/23/2015 15:45 SUPERVISOR BINDERY by TANYA MILLER RN Vital Signs Height : 167 cm(Converted to: 5 ft 6 inch(es)) TANYA MILLER RN - 03/23/2015 15:45 SUPERVISOR BINDERY General Level of Consciousness : Alert Orientation : Oriented x 3 Skin Color : Normal for ethnicity Skin Description : Dry Skin Temperature : Warm Pain Symptoms : No GABRIEL TANYA MICKIE - 03/23/2015 15:45 SUPERVISOR BINDERY Cardiovascular Heart Rhythm : Regular Nail Bed Color : Bradley Edema Assessment : No Capillary Refill : Less than 2 seconds TANYA MILLER RN - 03/23/2015 15:45 SUPERVISOR BINDERY Radial Pulse, Left : 2+ Normal Radial Pulse, Right : 2+ Normal Dorsalis Pedis Pulse, Left : 2+ Normal Dorsalis Pedis Pulse, Right : 2+ Normal GABRIEL TANYA MICKIE - 03/23/2015 15:45 SUPERVISOR BINDERY Antiembolism Device : Sequential Compression Device Antiembolism Device Laterality : Bilateral GABRIEL TANYA MICKIE - 03/23/2015 15:45 SUPERVISOR BINDERY Respiratory Respiratory Patient Stated Symptoms : None Incentive Spirometry Volume Achieved : 2,200 mL Respirations : Unlabored Distress : None Respiratory Pattern : Regular All Lobes Breath Sounds : Clear Cough and Deep Breathe : Done Cough : None Sputum Amount : None TANYA MILLER RN - 03/23/2015 15:45 SUPERVISOR BINDERY Incentive Spirometry Incentive Spirometry Volume Achieved : 2,200 mL Incentive Spirometry Times Performed : 5 Incentive Spirometry Patient Effort : Good Pt Participation in Treatment - IS : Cooperative Cough and Deep Breathe : Done Spontaneous Cough : No Cough : None TANYA MILLER RN - 03/23/2015 15:45 SUPERVISOR BINDERY GI/ Nausea Symptoms : No Nursing Interventions : Patient given oral fluids, Patient given food Passing Flatus : Yes Abdomen Palpation : Non-Tender, Soft Bowel Sounds All Quadrants : Present Abdomen Description : Rounded Urinary Elimination : Voiding, no difficulties Urine Color : Yellow REYNA, October03/23/2015 15:45 SUPERVISOR BINDERY Integumentary Integumentary Patient Stated Symptoms : None Skin Turgor : Elastic Skin Integrity : Not intact Mucous Membrane Color : Bradley Mucous Membrane Description : Moist GABRIEL, October03/23/2015 15:45 SUPERVISOR BINDERY Conference Service Coordinator Integumentary - Grid Conference Service Coordinator : Sequential Compression Device Assessment/Action : Removed and reapplied Skin Appearance : Normal [facility], October03/23/2015 15:45 SUPERVISOR BINDERY Skin Color : Normal for ethnicity Skin Description : Dry Skin Temperature : Warm , October03/23/2015 15:45 SUPERVISOR BINDERY Incision/Wound Incision/Wound Care Grid Activity : Assessed Type : Surgical incision Location : Shoulder Laterality : Right Drainage : None Wound Dressing : Other: Aqua cell / sling in place with pillow support to elbow [facility], October03/23/2015 15:45 SUPERVISOR BINDERY Peripheral IV Peripheral IV Assess/Intervention Grid Peripheral IV #1 Peripheral IV #2 IV Activity : Discontinue Start Number of Attempts : 1 Date of Insertion : 03/23/2015 SUPERVISOR BINDERY 03/23/2015 SUPERVISOR BINDERY IV Site : Forearm Antecubital Laterality : Left Left Catheter Size : 20 18 Catheter Type : Protective Infiltration Score : 0 Phlebitis Score : 0 [facility], October03/23/2015 15:45 SUPERVISOR BINDERY [facility], October03/23/2015 15:45 SUPERVISOR BINDERY I&O Oral Intake : 200 mL Urine Voided : 400 mL [facility], October03/23/2015 15:45 SUPERVISOR BINDERY Nutrition Dinner : 100 % [facility], October03/23/2015 15:45 SUPERVISOR BINDERY Lower Extremity Lower Extremity Central Pulses Grid Femoral Pulse, Left : 2+ Normal Femoral Pulse, Right : 2+ Normal [facility], October03/23/2015 15:45 SUPERVISOR BINDERY Lower Extremity Peripheral Pulses Grid Popliteal Pulse, Left : 2+ Normal Popliteal Pulse, Right : 2+ Normal Posttibial Pulse, Left : 2+ Normal Posttibial Pulse, Right : 2+ Normal Dorsalis Pedis Pulse, Left : 2+ Normal Dorsalis Pedis Pulse, Right : 2+ Normal [facility], October03/23/2015 15:45 SUPERVISOR BINDERY Upper Extremity Nail Bed Color Hands Grid Left Hand : Bradley Right Hand : Bradley GABRIEL, October03/23/2015 15:45 SUPERVISOR BINDERY Capillary Refill Hand Grid Left Hand : < 2 seconds Right Hand : < 2 seconds GABRIEL, October03/23/2015 15:45 SUPERVISOR BINDERY Upper Extremity Color Grid Left : Bradley Right : Bradley GABRIEL, October03/23/2015 15:45 SUPERVISOR BINDERY Upper Extremity Temperature Grid Left : Warm Right : Warm GABRIEL, October03/23/2015 15:45 SUPERVISOR BINDERY [place] Upper Extremity Pulses Grid Radial Pulse, Left : 2+ Normal Radial Pulse, Right : 2+ Normal Brachial Pulse, Left : 2+ Normal Brachial Pulse, Right : 2+ Normal GABRIEL, October03/23/2015 15:45 SUPERVISOR BINDERY [place] Upper Extremity Sensation Grid Dorsal Web Space Thumb/Index Finger Right : Numbness Distal Fat Pad/Small Finger Right : Numbness Distal Fat Pad/Index Finger Right : Numbness GABRIEL, October03/23/2015 15:45 SUPERVISOR BINDERY Activity Activity Status ADL : Ambulating in malone, Ambulating in room, Bathroom privileges, Up to chair, Up with assistance Activity Assistance : Moderate 1 person assistance Assistive Device : Gait belt, Other: sling in place Positioning/Pressure Reducing Devices : Pillow GABRIELOctober03/23/2015 15:45 SUPERVISOR BINDERY [place] Agitation Sedation Scale (RASS) : Alert and calm RASS Score : 0 October03/23/2015 15:45 SUPERVISOR BINDERY Hawk Sensory Perception Hawk : No impairment Moisture Hawk : Rarely moist Activity Hawk : Walks occasionally Mobility Hawk : Slightly limited Nutrition Hawk : Adequate Friction and Shear Hawk : No apparent problem Hawk Score : 20 October03/23/2015 15:45 SUPERVISOR BINDERY Hendrich II Fall Risk Confusion/Disorientation Hendrich : [...] Score Hendrich II : 5 October03/23/2015 15:45 SUPERVISOR BINDERY Safe Patient Handling Safe Pt Handling Independent : Yes - No equipment needed Safe Pt Handling Equipment Rec : No Equipment Needed 03/23/2015 15:45 SUPERVISOR BINDERY Education General Patient Education Powergrid Topics : [...] understanding TANYA MILLER RN - 03/23/2015 15:45 SUPERVISOR BINDERY Source: [facility] POWERCHART Document Id: [id number] SUPERVISOR BINDERY!165 RVISOR BINDERY Miscellaneous - Radha Younger R.N. - 03/23/2015 1:15 PM CST Adult Postprocedure Assessment Adult Postprocedure Assessment Entered On: 03/23/2015 13:21 SUPERVISOR BINDERY Performed On: 03/23/2015 13:15 SUPERVISOR BINDERY by RADHA YOUNGER RN Vital Signs Height : 167 cm(Converted to: 5 ft 6 inch(es)) RADHA YOUNGER RN - 03/23/2015 13:15 SUPERVISOR BINDERY General Level of Consciousness : Alert Orientation : Appropriate for age Skin Color : Normal for ethnicity Skin Description : Dry Skin Temperature : Warm Pain Symptoms : No RADHA YOUNGER RN - 03/23/2015 13:15 SUPERVISOR BINDERY Cardiovascular Heart Rhythm : Regular Nail Bed Color : Bradley Edema Assessment : No Capillary Refill : Less than 2 seconds RADHA YOUNGER RN - 03/23/2015 13:15 SUPERVISOR BINDERY Radial Pulse, Left : 2+ Normal Radial [...] Normal RADHA YOUNGER RN - 03/23/2015 13:15 SUPERVISOR BINDERY Central Pulses Grid Carotid Pulse, Left : 2+ Normal Carotid Pulse, Right : 2+ Normal Femoral Pulse, Left : 2+ Normal Femoral Pulse, Right : 2+ Normal RADHA YOUNGER - 03/23/2015 13:15 SUPERVISOR BINDERY Antiembolism Device : Sequential Compression Device Antiembolism Device Laterality : Bilateral CARISA RADHA - 03/23/2015 13:15 SUPERVISOR BINDERY Respiratory Respiratory Patient Stated Symptoms : None Distress : None Respiratory Pattern : Regular All Lobes Breath Sounds : Clear Cough and Deep Breathe : Done Cough : None Sputum Color : Clear Suction : None Airway : Patent RADHA YOUNGER - 03/23/2015 13:15 SUPERVISOR BINDERY Incentive Spirometry Incentive Spirometry Patient Effort : Good Pt Participation in Treatment - IS : Cooperative Cough and Deep Breathe : Done Spontaneous Cough : Yes Cough : None RADHA YOUNGER - 03/23/2015 13:15 SUPERVISOR BINDERY GI/ Nausea Symptoms : No RADHA YOUNGER - 03/23/2015 13:15 SUPERVISOR BINDERY Integumentary Integumentary Patient Stated Symptoms : None Skin Turgor : Elastic Skin Integrity : Not intact Mucous Membrane Color : Bradley Mucous Membrane Description : Moist Skin Color : Normal for ethnicity Skin Description : Dry Skin Temperature : Warm RADHA YOUNGER - 03/23/2015 13:15 SUPERVISOR BINDERY Incision/Wound Incision/Wound Care Grid Activity : Assessed Type : Surgical incision Location : Shoulder Laterality : Right RADHA YOUNGER - 03/23/2015 13:15 SUPERVISOR BINDERY Peripheral IV Peripheral IV Assess/Intervention Grid Peripheral IV #1 Peripheral IV #2 IV Activity : Discontinue Start Number of Attempts : 1 Date of Insertion : 03/23/2015 SUPERVISOR BINDERY 03/23/2015 SUPERVISOR BINDERY IV Site : Forearm Antecubital Laterality : Left Left Catheter Size : 20 18 Catheter Type : Protective Site Condition : No complications RADHA YOUNGER - 03/23/2015 13:15 SUPERVISOR BINDERY RADHA YOUNGER - 03/23/2015 13:15 SUPERVISOR BINDERY Upper Extremity Nail Bed Color Hands Grid Left Hand : Bradley Right Hand : Bradley RADHA YOUNGER - 03/23/2015 13:15 SUPERVISOR BINDERY Capillary Refill Hand Grid Left Hand : < 2 seconds Right Hand : < 2 seconds RADHA YOUNGER - 03/23/2015 13:15 SUPERVISOR BINDERY Upper Extremity Color Grid Left : Bradley Right : Bradley RADHA YOUNGER - 03/23/2015 13:15 SUPERVISOR BINDERY Upper Extremity Temperature Grid Left : Warm Right : Warm RADHA YOUNGER - 03/23/2015 13:15 SUPERVISOR BINDERY [place] Upper Extremity Sensation Grid Dorsal Web Space Thumb/Index Finger Right : Numbness Distal Fat Pad/Small Finger Right : Numbness Distal Fat Pad/Index Finger Right : Numbness RADHA YOUNGER RN - 03/23/2015 13:15 SUPERVISOR BINDERY Activity Patient Position : Elevate head of bed 30 degrees, Sitting in bed Activity Status ADL : Reposition every 2 hours, Up with assistance Activity Assistance : Moderate 1 person assistance Assistive Device : Gait belt RADHA YOUNGER RN - 03/23/2015 13:15 SUPERVISOR BINDERY Modified Elenita Activity : Moves 4 extremities voluntarily or on command Respiratory : Able to deep breathe and cough freely Circulation : BP 20-49% of preanesthetic level Consciousness : Fully awake O2 Saturation : Needs oxygen to maintain > 92% Elenita l Score : 8 RADHA YOUNGER RN - 03/23/2015 13:15 SUPERVISOR BINDERY PARSAP Activity Status : Moves 4 extremities [...] 19 RADHA YOUNGER RN - 03/23/2015 13:15 SUPERVISOR BINDERY [place] Agitation Sedation Scale (RASS) : Alert and calm RASS Score : 0 RADHA YOUNGER - 03/23/2015 13:15 SUPERVISOR BINDERY Hawk Sensory Perception Hawk : No impairment Moisture Hawk : Rarely moist Activity Hawk : Walks occasionally Mobility Hawk : Slightly limited Nutrition Hawk : Adequate Friction and Shear Hawk : No apparent problem Hawk Score : 20 RADHA YOUNGER - 03/23/2015 13:15 SUPERVISOR BINDERY Hendrich II Fall Risk Confusion/Disorientation Hendrich : [...] Score Hendrich II : 4 RADHA YOUNGER RN - 03/23/2015 13:15 SUPERVISOR BINDERY Safe Patient Handling Safe Pt Handling Independent : No Safe Pt Handling Supervision/Minimal Assistance : Yes - Unmotorized Equipment Safe Pt Handling Equipment Rec : Unmotorized Equipment RADHA YOUNGER RN - 03/23/2015 13:15 SUPERVISOR BINDERY Education General Patient Education [employer] Topics : Pain Management, Safety, fall RADHA YOUNGER RN - 03/23/2015 13:15 SUPERVISOR BINDERY Source: [facility] POWERCHART Document Id: [id number] SUPERVISOR BINDERY!154 RV[employer]OR BINDERY Miscellaneous - Arti Almaguer R.N. - 03/23/2015 12:59 PM CST Adult Postprocedure Assessment Adult Postprocedure Assessment Entered On: 03/23/2015 13:03 SUPERVISOR BINDERY Performed On: 03/23/2015 12:59 SUPERVISOR BINDERY by ARTI ALMAGUER RN Vital Signs Temperature [...] inch(es)) ARTI ALMAGUER RN - 03/23/2015 12:59 SUPERVISOR BINDERY General Level of Consciousness : Alert Orientation : Oriented x 3 Skin Color : Normal for ethnicity Skin Description : Normal Skin Temperature : Warm Pain Symptoms : No (Comment: Denies pain [ARTI ALMAGUER RN - 03/23/2015 12:59 SUPERVISOR BINDERY] ) ARTI ALMAGUER RN - 03/23/2015 12:59 SUPERVISOR BINDERY Upper Extremity Nail Bed Color Hands Grid Left Hand : Bradley Right Hand : Bradley ARTI ALMAGUER RN - 03/23/2015 12:59 SUPERVISOR BINDERY Capillary Refill Hand Grid Left Hand : < 2 seconds Right Hand : < 2 seconds ARTI ALMAGUER RN - 03/23/2015 12:59 SUPERVISOR BINDERY Upper Extremity Color Grid Left : Bradley Right : Bradley ARTI ALMAGUER RN - 03/23/2015 12:59 SUPERVISOR BINDERY Upper Extremity Temperature Grid Left : Warm Right : Warm ARTI ALMAGUER RN - 03/23/2015 12:59 SUPERVISOR BINDERY [place] Upper Extremity Sensation Grid Dorsal Web Space Thumb/Index Finger Right : Numbness (Comment: due to block [ARTI ALMAGUER RN - 03/23/2015 12:59 SUPERVISOR BINDERY] ) Distal Fat Pad/Small Finger Right : Numbness (Comment: due to block [ARTI ALMAGUER RN - 03/23/2015 12:59 SUPERVISOR BINDERY] ) Distal Fat Pad/Index Finger Right : Numbness (Comment: due to block [ARTI ALMAGUER RN - 03/23/2015 12:59 SUPERVISOR BINDERY] ) ARTI ALMAGUER RN - 03/23/2015 12:59 SUPERVISOR BINDERY Source: [facility] [employer] Document Id: [id number] SUPERVISOR BINDERY!37 RV[employer]OR BINDERY Transfer of Care - Shira Dias R.N. - 03/23/2015 11:58 AM CST Intrahospital Transfer Intrahospital Transfer Entered On: 03/23/2015 11:59 [employer]PERVISOR BINDERY Performed On: 03/23/2015 11:58 SUPERVISOR BINDERY by SHIRA DIAS RN Transfer Intrahospital Transfer Mode : Cart Nurse Receiving Report : pascale CORADO Date/Time Nurse Received Report : 03/23/2015 11:45 SUPERVISOR BINDERY Reason for Intrahospital Transfer : Improved condition Blood Products Received : No Transfer Notification : Spouse SHIRA DIAS RN - 03/23/2015 11:58 SUPERVISOR BINDERY Source: [facility] [employer]one[facility] Document Id: [id number] SUPERVISOR BINDERY!8 RVISOR BINDERY Miscellaneous - Shira Dias R.N. - 03/23/2015 11:51 AM CST Adult Postprocedure Assessment Adult Postprocedure Assessment Entered On: 03/23/2015 11:58 SUPERVISOR BINDERY Performed On: 03/23/2015 11:51 [employer]PERVISOR BINDERY by SHIRA DIAS RN Vital Signs Height : 167 cm(Converted to: 5 ft 6 inch(es)) SHIRA DIAS RN - 03/23/2015 11:57 SUPERVISOR BINDERY Incision/Wound Incision/Wound Care Grid Activity : Assessed Type : Surgical incision Location : Shoulder Laterality : Right Drainage : None SHIRA DIAS RN - 03/23/2015 11:57 SUPERVISOR BINDERY Source: [facility] POWERCHART Document Id: [id number] SUPERVISOR BINDERY!11 RVISOR BINDERY Miscellaneous - Shira Dias R.N. - 03/23/2015 10:55 AM CST Adult Postprocedure Assessment Adult Postprocedure Assessment Entered On: 03/23/2015 11:06 SUPERVISOR BINDERY Performed On: 03/23/2015 10:55 SUPERVISOR BINDERY by SHIRA DIAS RN Vital Signs Respiratory Rate : 16 /min Oxygen Flow Rate : 2 L/min Oxygen Therapy : Nasal cannula Height : 167 cm(Converted to: 5 ft 6 inch(es)) SHIRA DIAS RN - 03/23/2015 11:02 SUPERVISOR BINDERY General Level of Consciousness : Drowsy Orientation : Oriented x 3 Skin Color : Normal for ethnicity Skin Description : Dry Skin Temperature : Warm Pain Symptoms : No SHIRA DIAS RN - 03/23/2015 11:02 SUPERVISOR BINDERY Integumentary Integumentary Patient Stated Symptoms : None Skin Integrity : Not intact SHIRA DIAS RN - 03/23/2015 11:02 SUPERVISOR BINDERY Incision/Wound Incision/Wound Care Grid Activity : Assessed Type : Surgical incision Location : Shoulder Laterality : Right Drainage : None SHIRA DIAS RN - 03/23/2015 11:02 SUPERVISOR BINDERY Peripheral IV Peripheral IV Assess/Intervention Grid Peripheral IV #1 Peripheral IV #2 IV Activity : Discontinue Start Number of Attempts : 1 Date of Insertion : 03/23/2015 SUPERVISOR BINDERY 03/23/2015 SUPERVISOR BINDERY IV Site : Forearm Antecubital Laterality : Left Left Catheter Size : 20 18 Catheter Type : Protective Site Condition : No complications Comments (Comment: discontinued in OR, positional [SHIRA DIAS RN - 03/23/2015 11:02 SUPERVISOR BINDERY] ) (Comment: started in OR [SHIRA DIAS RN - 03/23/2015 11:02 SUPERVISOR BINDERY] ) SHIRA DIAS RN - 03/23/2015 11:02 SUPERVISOR BINDERY SHIRA DIAS RN - 03/23/2015 11:02 SUPERVISOR BINDERY I&O Other Intake : 1,400 mL Urine Voided : 300 mL Estimated Blood Loss : 300 mL SHIRA DIAS RN - 03/23/2015 11:02 SUPERVISOR BINDERY Modified Elenita Activity : Moves 4 extremities voluntarily or on command Respiratory : Able to deep breathe and cough freely Circulation : BP +/- 20% of preprocedural level or not unusually high or low Consciousness : Arouses on calling O2 Saturation : Needs oxygen to maintain > 92% Elenita l Score : 8 SHIRA DIAS RN - 03/23/2015 11:02 SUPERVISOR BINDERY Source: [employer] Document Id: [id number] SUPERVISOR BINDERY!52 RVISOR BINDERY Miscellaneous - Brandi Millard RSelvin - 03/23/2015 6:38 AM CST Adult Admission Assessment Adult Admission Assessment Entered On: 03/23/2015 6:42 SUPERVISOR BINDERY Performed On: 03/23/2015 6:38 SUPERVISOR BINDERY by BRANDI MILLARD RN Respiratory Respiratory Patient Stated Symptoms : None Respirations : Unlabored Distress : None Respiratory Pattern : Regular All Lobes Breath Sounds : Clear Cough : None BRANDI MILLARD RN - 03/23/2015 6:38 SUPERVISOR BINDERY Cardiovascular CV Patient Stated Symptoms : None Antiembolism Device Yes/No : Yes BRANDI MILLARD RN - 03/23/2015 6:38 SUPERVISOR BINDERY Antiembolism Device Antiembolism Device Laterality : Bilateral BRANDI MILLARD RN - 03/23/2015 6:38 SUPERVISOR BINDERY Neurological Neuro Patient Stated Symptoms : None Orientation : Oriented x 3 Level of Consciousness : Alert Gait : Steady Swallowing Difficulty/Aspiration Risk : None BRANDI MILLARD RN - 03/23/2015 6:38 SUPERVISOR BINDERY Pierre Coma Eye Opening Response Pierre : Spontaneously Best Verbal Response Pierre : Oriented Best Motor Response Pierre : Obeys simple commands [place] Coma Score : 15 BRANDI MILLARD RN - 03/23/2015 6:38 SUPERVISOR BINDERY Psycho/Emotional Pain Symptoms : No BRANDI MILLARD RN - 03/23/2015 6:38 SUPERVISOR BINDERY Gastrointestinal GI Patient Stated Symptoms : None Bowel Movement Last Date : 03/22/2015 SUPERVISOR BINDERY BRANDI MILLARD RN - 03/23/2015 6:38 SUPERVISOR BINDERY Integumentary Skin Integrity : Intact BRANDI MILLARD RN - 03/23/2015 6:38 SUPERVISOR BINDERY Peripheral IV Peripheral IV Assess/Intervention Grid Peripheral IV #1 IV Activity : Start Number of Attempts : 1 Date of Insertion : 03/23/2015 SUPERVISOR BINDERY IV Site : Forearm Laterality : Left Catheter Size : 20 BRANDI MILLARD RN - 03/23/2015 7:27 SUPERVISOR BINDERY Hendrich II Fall Risk Confusion/Disorientation Hendrich : [...] 1 BRANDI MILLARD RN - 03/23/2015 6:38 SUPERVISOR BINDERY [facility] Document Id: [id number] SUPERVISOR BINDERY!10 RVISOR BINDERY Miscellaneous - Brandi Millard R.N. - 03/23/2015 6:38 AM CST Adult Admission History Adult Admission History Entered On: 03/23/2015 6:46 SUPERVISOR BINDERY Performed On: 03/23/2015 6:38 SUPERVISOR BINDERY by BRANDI MILLARD RN General Info Preferred Name : Ryley Admitted From : Non-Health Care Facility Point of Origin Mode of Arrival : Ambulatory Accompanied By : Spouse Chief Complaint : right shoulder Preferred Communication Mode : Verbal Information Given By : Patient Languages : Cypriot Have you received chemotherapy in last 48 hours? : No Is Patient Female and 13-50 no hysterectomy : No BRANDI MILLARD RN - 03/23/2015 6:38 SUPERVISOR BINDERY Anesth/Transfusion Anesthesia/Transfusions : Prior anesthesia reaction Anesthesia Reaction : Excessive post op nausea Transfusion Acceptable in Emergency : Yes Advent/Other Objections to Blood Transfusions : No BRANDI MILLARD RN - 03/23/2015 6:38 SUPERVISOR BINDERY Nutrition Have you recently lost weight without trying? : No Decreased Appetite Nutrition : No Tube Feedings or Parenteral Nutrition : No MST Score : 0 BRANDI MILLARD RN - 03/23/2015 6:38 SUPERVISOR BINDERY Home Environment Current Daily Living Assistance : None Sensory Deficits : None BRANDI MILLARD RN - 03/23/2015 6:38 SUPERVISOR BINDERY Dependent Habits Alcohol Use : No BRANDI MILLARD RN - 03/23/2015 6:38 SUPERVISOR BINDERY Caffeine Use Grid Caffeine Use : Current Type : Coffee Frequency : Daily BRANDI MILLARD RN - 03/23/2015 6:38 SUPERVISOR BINDERY Psychosocial Adult Domestic Abuse Concerns : None Behavioral Health Screen/Safety Assmt : No Advent Preference : BRANDI Bradley RN - 03/23/2015 6:38 SUPERVISOR BINDERY Advance Directive Advanced Directives : No Advance Directive Additional Information : No BRANDI MILLARD RN - 03/23/2015 6:38 SUPERVISOR BINDERY Educ Needs Patient/Family Education Needs : Postoperative instructions, Preoperative instructions BRANDI MILLARD RN - 03/23/2015 6:38 SUPERVISOR BINDERY Learning Style Preference Adult Grid Patient : Verbal explanation Family : Verbal explanation BRANDI MILLARD RN - 03/23/2015 6:38 SUPERVISOR BINDERY Source: [facility] POWERCHART Document Id: [id number] SUPERVISOR BINDERY!44 RVISOR BINDERY documented in this encounter Plan of Treatment Not on filedocumented as of this encounter Procedures Procedure Name Priority Date/Time Associated Comments Diagnosis CBC WITHOUT Routine 03/24/2015 5:50 AM Results f or this DIFFERENTIAL, B SUPERVISOR BINDERY procedure ar e in the results section. COMPREHENSIVE Routine 03/24/2015 5:50 AM Results for this METABOLIC PANEL, S/P SUPERVISOR BINDERY procedu re are in the results section. documented in this encounter Results (ABNORMAL) CBC without Differential (03/24/2015 5:50 AM SUPERVISOR BINDERY) [facility] Signature Hematocrit 36.6 (L) 38.8 - POWERCHART 50.0 Hemoglobin 12.5 (L) 13.5 - POWERCHART 17.5 GDL MCV 90.6 81.0 - POWERCHART 95.0 FL Platelet Count 214 150 - 450 POWERCHART X109L Erythrocytes 4.04 (L) 4.32 - POWERCHART 5.72 [id number] HX RDW 13.8 11.8 - POWERCHART 15.6 Leukocytes 10.8 (H) 3.5 - 10.5 POWERCHART X109L Specimen (Source) Anatomical Collection Method Collection Time Re ceived Time Location / / Volume Laterality Blood 03/24/2015 5:50 AM SUPERVISOR BINDERY Karel Coronel M.D. LAB BLOOD ADD-ON Performing Organization Address City/State/ZIP Code Phon e Number POWERCHART (ABNORMAL) CMP (Comprehensive Metabolic Panel) (03/24/2015 5:50 AM SUPERVISOR BINDERY) [facility] gist Method Time Signature Chloride, S 103 [...] POWERCHART GDL eGFR Black/ >60 >=[id number] 2 HXeGFR (MDRD) >60 >=60 POWERCHART [id number] 2 Comment: Results are in mL/min/1.73m CKD [...] / Volume Laterality Blood 03/24/2015 5:50 AM SUPERVISOR BINDERY Karel Coronel M.D. LAB BLOOD ADD-ON Performing Organization Address City/State/ZIP Code Phon e Number POWERCHART documented in this encounter Visit Diagnoses Not on filedocumented in this encounter Additional Health Concerns Assessment Noted Time PHQ-9 Depression Total Score: 2 03/08/2015 11:16 AM CS T documented as of this encounter
--- OUTSIDE RECORDS SUMMARY | 2022-04-11 08:12 | XMS_ITS | Encounter Summary ---
:1940 Author Organization [facility] Address [address] [place] [address] Care Team Providers Name Role Phone Unavailable Primary Care Provider Unavailable Encounter Details Date Type Department Care Team Description 12/18/2011 - Hospital Encounter HX RST DAY GOMEZ Lissa Murray, 12/20/2011 M.DLara [address] [place] [address] Social History Tobacco Use Types Packs/Day Years [...] Respiratory Rate 18 12/20/2011 12:00 Value from Paulette rtplus. PM CDT Oxygen Saturation - - [...] PROCE DURES Magnesium (12/20/2011 4:05 AM CDT) P athologist Signature Magnesium, S 2.1 1.7 - 2.3 [facility] MG/DL [facility] Specimen Anatomical Collection Method Collection Time Receive d Time (Source) Location / / Volume Laterality 12/20/2011 4:05 AM 2 4:05 CDT AM CDT Historical Provider LAB BLOOD ADD-ON Performing Organization Address City/[facility]/ZIP Code Phon e Number [facility] LABORATORIES - [address] (ABNORMAL) Phosphorus Inorganic (12/20/2011 4:05 AM CDT) [facility] gist Method Time Signature Phosphorus 4.6 (H) 2.5 - 4.5 [facility] (Inorganic), S MG/DL [facility] Specimen Anatomical Collection Method Collection Time Receive d Time (Source) Location / / Volume Laterality 12/20/2011 4:05 AM 2 4:05 CDT AM CDT Historical Provider LAB BLOOD ADD-ON Performing Organization Address City/[facility]/ZIP Code Phon e Number [facility] LABORATORIES - [address] [place] [address] [facility] CBC with Differential (12/20/2011 4:05 AM CDT) [facility] Method Time Signature Hemoglobin 14.4 13.5 - [facility] 17.5 G/DL [facility] Hematocrit 43.3 38.8 - [facility] 50.0 % [facility] RBC Distrib Width 13.6 11.8 - [facility] 15.6 % LABORATORIES - [facility] Platelet Count 202 150 - 450 [facility] X10(9)/L LABORATORIES - [facility] Lymphocytes 2.33 0.90 - [facility] 2.90 LABORATORIES - X10(9)/L [facility] Monocytes 0.52 0.30 - [facility] 0.90 LABORATORIES - X10(9)/L [facility] Erythrocytes 4.75 4.32 - [facility] 5.72 LABORATORIES - X10(12)/L [facility] MCV 91.2 81.2 - [facility] 95.1 [place] LABORATORIES - [facility] Leukocytes 7.5 3.5 - [facility] 10.5 LABORATORIES - X10(9)/L [facility] Neutrophils 4.40 1.70 - [facility] 7.00 LABORATORIES - X10(9)/L [facility] Eosinophils 0.18 0.05 - [facility] 0.50 LABORATORIES - X10(9)/L [facility] Basophils 0.02 0.00 - [facility] 0.30 LABORATORIES - X10(9)/L [facility] Specimen Anatomical Collection Method Collection Time Receive d Time (Source) Location / / Volume Laterality 12/20/2011 4:05 AM 2 4:05 CDT AM CDT Historical Provider LAB BLOOD ADD-ON Performing Organization Address City/State/[facility] Code Phon e Number [facility]ORATORIES - [address] [place] [address] [facility] (ABNORMAL) Troponin T (12/20/2011 4:05 AM CDT) Patholo gist Method Time Signature Troponin T, S 0.34 (H) <0.01 [facility] NG/ML LABORATORIES - [facility] Specimen Anatomical Collection Method Collection Time Receive d Time (Source) Location / / Volume Laterality 12/20/2011 4:05 AM 2 4:05 CDT AM CDT Historical Provider LAB BLOOD ADD-ON Performing Organization Address City/State/[facility] Code Phon e Number [facility] LABORATORIES - [address] [address] [facility] Electrolyte (Chem 4) Panel (12/20/2011 4:05 AM CDT) Analysis Performed At Patho logist Time Signature Chloride, S 104 100 - 108 [facility] MMOL/L LABORATORIES - [facility] HX Bicarbonate, 27 22 - 29 [facility] P/S MMOL/L LABORATORIES - [facility] Sodium, S 141 135 - 145 [facility] MMOL/L LABORATORIES - [facility] Potassium, S 4.2 3.6 - 5.2 [facility] MMOL/L LABORATORIES - [facility] Creatinine 1.2 0.8 - 1.3 [facility] MG/DL LABORATORIES - [facility] BUN (Blood Urea 16 8 - 24 [facility] Nitrogen), S MG/DL LABORATORIES - [facility] Anion Gap 10 7 - 15 [facility] LABORATORIES - [facility] Glucose, S 96 70 - 140 [facility] MG/DL LABORATORIES - [facility] Specimen Anatomical Collection Method Collection Time Receive d Time (Source) Location / / Volume Laterality 12/20/2011 4:05 AM 2 4:05 CDT AM CDT Historical Provider LAB BLOOD ADD-ON Performing Organization Address City/[facility]/ZIP Code Phon e Number [facility] LABORATORIES - [address] [place] [address] [facility] (ABNORMAL) Creatine Kinase (CK) MB Isoenzyme (12/20/2011 4:05 AM CDT) Patholo gist Method Time Signature Creatine 6.9 (H) <6.7 NG/ML [facility] Kinase(CK) MB LABORATORIES - Isoenzyme, S [facility] Specimen Anatomical Collection Method Collection Time Receive d Time (Source) Location / / Volume Laterality 12/20/2011 4:05 AM 2 4:05 CDT AM CDT Historical Provider LAB BLOOD ADD-ON Performing Organization Address City/[facility]/ZIP Code Phon e Number [facility] LABORATORIES - [address] [place] [address] [facility] (ABNORMAL) APTT (Activated Partial Thromboplastin Time) (12/19/2011 3:33 PM CDT) P athologist Signature APTT, P >240 (>) 28 - 38 [facility] SEC LABORATORIES - [facility] Specimen Anatomical Collection Method Collection Time Receive d Time (Source) Location / / Volume Laterality 12/19/2011 3:33 PM 2 3:33 CDT PM CDT Lissa Casey M.D. LAB BLOOD ADD-ON Performing Organization Address City/[facility]/ZIP Code Phon e Number [facility] LABORATORIES - [address] [place], [place] [address] [facility] (ABNORMAL) ACT (Activated Clotting Time), POCT (12/19/2011 2:25 PM CDT) [facility] Method Time Signature Activated 266 (H) 84 - 139 [facility] Clotting Time, SEC LABORATORIES - POCT [facility] Specimen Anatomical Collection Method Collection Time Receive d Time (Source) Location / / Volume Laterality 12/19/2011 2:25 PM 2 2:25 CDT PM CDT Historical Provider LAB POCT ORDERABLES - DEVICE Performing Organization Address City/[facility]/ZIP Code Phon e Number [facility] LABORATORIES - [address] [place], [place] [address] [facility] (ABNORMAL) ACT (Activated Clotting Time), POCT (12/19/2011 1:54 PM CDT) [facility] Method Time Signature Activated 227 (H) 84 - 139 [facility] Clotting Time, SEC LABORATORIES - POCT [facility] Specimen Anatomical Collection Method Collection Time Receive d Time (Source) Location / / Volume Laterality 12/19/2011 1:54 PM 2 1:54 CDT PM CDT Historical Provider LAB POCT ORDERABLES - DEVICE Performing Organization Address City/[facility]/ZIP Code Phon e Number [facility] LABORATORIES - [address] [place] [address] [facility] ACT (Activated Clotting Time), POCT (12/19/2011 1:42 PM CDT) P athologist Signature Activated 138 84 - 139 [facility] Clotting Time, SEC LABORATORIES - POCT [facility] Specimen Anatomical Collection Method Collection Time Receive d Time (Source) Location / / Volume Laterality 12/19/2011 1:42 PM 2 1:42 CDT PM CDT Historical Provider LAB POCT ORDERABLES - DEVICE Performing Organization Address City/[facility]/ZIP Code Phon e Number [facility] LABORATORIES - [address] [place] [address] 05 [facility] Cardiac Catheterization (12/19/2011 1:11 PM CDT) Anatomical [...] P 93 (H) 28 - 38 SEC [facility] Specimen Anatomical Collection Method Collection Time Receive d Time (Source) Location / / Volume Laterality 12/19/2011 8:20 AM 2 8:20 CDT AM CDT Historical Provider LAB BLOOD ADD-ON Performing Organization Address City/[facility]/ZIP [facility] Phon e Number [facility] LABORATORIES - [address] (ABNORMAL) APTT (Activated Partial Thromboplastin Time) (12/19/2011 1:05 AM CDT) P athologist Signature APTT, P 50 (H) 28 - 38 [facility] Specimen Anatomical Collection Method Collection Time Receive d Time (Source) Location / / Volume Laterality 12/19/2011 1:05 AM 2 1:05 CDT AM CDT Tahmina Dong M.D. LAB BLOOD ADD-ON Performing Organization Address City/[facility] Code Phon e Number [facility] LABORATORIES - [address] [place] [address] 05 [facility] CBC with Differential (12/19/2011 1:05 AM CDT) [facility] Method Time Signature Hemoglobin 14.0 13.5 - [facility] 17.5 G/DL [facility] Hematocrit 40.5 38.8 - [facility] 50.0 % [facility] RBC Distrib Width 13.2 11.8 - [facility] 15.6 % [facility] Platelet Count 204 150 - 450 [facility] X10(9)/L [facility] Leukocytes 8.5 3.5 - [facility] 10.5 LABORATORIES - X10(9)/L [facility] Neutrophils 6.11 1.70 - [facility] 7.00 LABORATORIES - X10(9)/L [facility] Lymphocytes 1.84 0.90 - [facility] 2.90 LABORATORIES - X10(9)/L [facility] Monocytes 0.45 0.30 - [facility] 0.90 LABORATORIES - X10(9)/L [facility] Eosinophils 0.09 0.05 - [facility] 0.50 LABORATORIES - X10(9)/L [facility] Basophils 0.01 0.00 - [facility] 0.30 LABORATORIES - X10(9)/L [facility] Erythrocytes 4.43 4.32 - [facility] 5.72 LABORATORIES - X10(12)/L [facility] MCV 91.4 81.2 - [facility] 95.1 [place] LABORATORIES - [facility] Specimen Anatomical Collection Method Collection Time Receive d Time (Source) Location / / Volume Laterality 12/19/2011 1:05 AM 2 1:05 CDT AM CDT Tahmina oDng M.D. LAB BLOOD ADD-ON Performing Organization Address City/State/[facility] Code Phon e Number [facility] LABORATORIES - [address] [place], [place] [address] [facility] Electrolyte (Chem 4) Panel (12/19/2011 1:04 AM CDT) Analysis Performed At Patho logist Time Signature Sodium, S 143 135 - 145 [facility] MMOL/L LABORATORIES [facility] Potassium, S 4.1 3.6 - 5.2 [facility] MMOL/L LABORATORIES [facility] Creatinine 0.9 0.8 - 1.3 [facility] MG/DL [facility] BUN (Blood Urea 16 8 - 24 [facility] Nitrogen), S MG/DL LABORATORIES [facility] Chloride, S 108 100 - 108 [facility] MMOL/L LABORATORIES - [facility] HX Bicarbonate, 24 22 - 29 [facility] P/S MMOL/L LABORATORIES - [facility] Anion Gap 11 7 - 15 [facility] LABORATORIES - [facility] Glucose, S 95 70 - 140 [facility] MG/DL LABORATORIES - [facility] Specimen Anatomical Collection Method Collection Time Receive d Time (Source) Location / / Volume Laterality 12/19/2011 1:04 AM 2 1:04 CDT AM CDT Tahmina Dong M.D. LAB BLOOD ADD-ON Performing Organization Address City/State/ZIP Code Phon e Number [facility] LABORATORIES - [address] [place] [address] [facility] (ABNORMAL) Magnesium (12/19/2011 1:04 AM CDT) Analysis Performed At Patho logist Time Signature Magnesium, S 2.4 (H) 1.7 - 2.3 [facility] MG/DL LABORATORIES [facility] Specimen Anatomical Collection Method Collection Time Receive d Time (Source) Location / / Volume Laterality 12/19/2011 1:04 AM 2 1:04 CDT AM CDT Tahmina Dong M.D. LAB BLOOD ADD-ON Performing Organization Address City/[facility]/ZIP Code Phon e Number [facility] LABORATORIES - [address] [place] [address] 05 [facility] Phosphorus Inorganic (12/19/2011 1:04 AM CDT) Analysis Performed At Patho logist Time Signature Phosphorus 4.2 2.5 - 4.5 [facility] (Inorganic), S MG/DL LABORATORIES [facility] Specimen Anatomical Collection Method Collection Time Receive d Time (Source) Location / / Volume Laterality 12/19/2011 1:04 AM 2 1:04 CDT AM CDT Tahmina Dong M.D. LAB BLOOD ADD-ON Performing Organization Address City/[facility]/ZIP Code Phon e Number [facility] LABORATORIES - [address] [place] [address] [facility] DX Chest Portable 1 View (12/18/2011 7:31 [...] Electronically signed by: ?? Willie Laird MD [phone] 18-Dec-2011 20: 27 I have reviewed the [...] aorta. Electronically signed by: Willie Laird MD [phone] 18-Dec-2011 20: 27 I have reviewed the films/images and agr ee with the above interpretation. Electronically signed by: Maged Amato MD [phone] 18-Dec-2011 20:4 2 Lissa Casey M.D. IMG DIAGNOSTIC IMAGING PROCE DURES (ABNORMAL) Cardiac Biomarker Panel (12/18/2011 7:25 PM CDT) [facility] [employer] Method Time Signature Delta Interp Sig Delta [facility] Comment: Significant delta observed. Troponin Delta 0.38 NG/ML [facility] Troponin T 6H, S 0.52 (H) <0.01 NG/ML [facility] Delta Interp Sig Delta [facility] Comment: Significant delta observed. Troponin T, S 0.09 (H) <0.01 NG/ML [facility] Troponin T 3H, S 0.47 (H) <0.01 NG/ML [facility] Troponin Delta 0.43 NG/ML [facility] Specimen Anatomical Collection Method Collection Time Receive d Time (Source) Location / / Volume Laterality 12/18/2011 7:25 PM 2 7:25 CDT PM CDT Tahmina Dong M.D. LAB BLOOD ADD-ON Performing Organization Address City/State/ZIP Code Phon e Number [facility] [place] - [address] [place], [place] [address] [facility] PT (Prothrombin Time) with INR (12/18/2011 7:25 PM CDT) Patholo gist Method Time Signature Prothrombin 11.0 9.5 - 13.8 [facility] Time, P SEC [facility] INR 1.0 0.8 - 1.2 [facility] Specimen Anatomical Collection Method Collection Time Receive d Time (Source) Location / / Volume Laterality 12/18/2011 7:25 PM 2 7:25 CDT PM CDT Tahmina Dong M.D. LAB BLOOD ADD-ON Performing Organization Address City/[facility]/ZIP Code Phon e Number [facility] LABORATORIES - [address] [place] [address] 05 [facility] (ABNORMAL) APTT (Activated Partial Thromboplastin Time) (12/18/2011 7:25 PM CDT) athologist Signature APTT, P 78 (H) 28 - 38 [facility] Specimen Anatomical Collection Method Collection Time Receive d Time (Source) Location / / Volume Laterality 12/18/2011 7:25 PM 2 7:25 CDT PM CDT Tahmina Dong M.D. LAB BLOOD ADD-ON Performing Organization Address City/State/ZIP Code Phon e Number [facility] LABORATORIES - [address] [place] [address] 05 [facility] Electrolyte (Chem 4) Panel (12/18/2011 7:25 PM CDT) Analysis Performed At Patho logist Time Signature Chloride, S 106 100 - 108 [facility] MMOL/L [facility] BUN (Blood Urea 16 8 - 24 [facility] Nitrogen), S MG/DL [facility] Glucose, S 93 70 - 140 [facility] MG/DL LABORATORIES [facility] Sodium, P 142 135 - 145 [facility] MMOL/L [facility] Potassium, P 4.1 3.6 - 5.2 [facility] MMOL/L [facility] HX Bicarbonate, 29 22 - 29 [facility] P/S MMOL/L [facility] Creatinine 1.0 0.8 - 1.3 [facility] MG/DL [facility] Specimen Anatomical Collection Method Collection Time Receive d Time (Source) Location / / Volume Laterality 12/18/2011 7:25 PM 2 7:25 CDT PM CDT Tahmina Dong M.D. LAB BLOOD ADD-ON Performing Organization Address City/State/ZIP Code Phon e Number [facility] LABORATORIES - [address] [place], [place] [address] [facility] Magnesium (12/18/2011 7:25 PM CDT) P athologist Signature Magnesium, S 2.3 1.7 - 2.3 [facility] MG/DL [facility] Specimen Anatomical Collection Method Collection Time Receive d Time (Source) Location / / Volume Laterality 12/18/2011 7:25 PM 2 7:25 CDT PM CDT Tahmina Dong M.D. LAB BLOOD ADD-ON Performing Organization Address City/State/ZIP Code Phon e Number [facility] LABORATORIES - [address] [place] [phone] [facility] Phosphorus Inorganic (12/18/2011 7:25 PM CDT) Analysis Performed At Patho logist Time Signature Phosphorus 2.6 2.5 - 4.5 [facility] (Inorganic), S MG/DL [facility] Specimen Anatomical Collection Method Collection Time Receive d Time (Source) Location / / Volume Laterality 12/18/2011 7:25 PM 2 7:25 CDT PM CDT Tahmina Dong M.D. LAB BLOOD ADD-ON Performing Organization Address City/[facility]/ZIP Code Phon e Number [facility] LABORATORIES - [address] [place] [address] [facility] Lipid Panel (12/18/2011 7:25 PM CDT) Patholo gist Method Time Signature Cholesterol, 209 SeeComment [facility] Total MG/DL [facility] Comment: Reference Range: ? NCEP guidelines ? [...] ? Cholesterol, Non-HDL, 158 SeeComment MG/DL M [facility] LABORATORIES - Calculated [facility] [...] Organization Address City/State/ZIP Code Phon e Number [facility] LABORATORIES - [address] [place], [place] [address] [facility] (ABNORMAL) CBC with Differential (12/18/2011 7:25 PM CDT) [facility] Method Time Signature Hemoglobin 14.6 13.5 - [facility] 17.5 G/DL LABORATORIES - [facility] Hematocrit 43.7 38.8 - [facility] 50.0 % LABORATORIES - [facility] RBC Distrib 13.3 11.8 - [facility] Width 15.6 % LABORATORIES - [facility] Platelet Count 205 150 - 450 [facility] X10(9)/L LABORATORIES - [facility] Leukocytes 13.7 (H) 3.5 - [facility] 10.5 LABORATORIES - X10(9)/L [facility] Neutrophils 12.10 (H) 1.70 - [facility] 7.00 LABORATORIES - X10(9)/L [facility] Lymphocytes 0.91 0.90 - [facility] 2.90 LABORATORIES - X10(9)/L [facility] Monocytes 0.59 0.30 - [facility] 0.90 LABORATORIES - X10(9)/L [facility] Eosinophils 0.08 0.05 - [facility] 0.50 LABORATORIES - X10(9)/L [facility] Basophils 0.02 0.00 - [facility] 0.30 LABORATORIES - X10(9)/L [facility] Erythrocytes 4.79 4.32 - [facility] 5.72 LABORATORIES - X10(12)/L [facility] MCV 91.2 81.2 - [facility] 95.1 [place] LABORATORIES - [facility] Specimen Anatomical Collection Method Collection Time Receive d Time (Source) Location / / Volume Laterality 12/18/2011 7:25 PM 2 7:25 CDT PM CDT Tahmina Dong M.D. LAB BLOOD ADD-ON Performing Organization Address City/State/ZIP Code Phon e Number [facility] LABORATORIES - [address] [place], [place] [address] [facility] documented in this encounter Visit Diagnoses Not on filedocumented in this encounter
--- OUTSIDE RECORDS SUMMARY | 2022-04-11 08:12 | XMS_ITS | Encounter Summary ---
:1940 Author Organization [facility] Address [address] [place] [address] Care Team Providers Name Role Phone Unavailable Primary Care Provider Unavailable Encounter Details Date Type Department Care Team Description 01/10/2015 [facility] Kobe Waller, P.A.-C. Social History Tobacco Use [...] Kobe Conrad - 01/10/2015 7:41 AM CDT [id number] Mr. Vines is a very pleasant, 74-year-old [...] and it would be done over in [place]. He will let us know if he [...] bring up the possibility of going to [place]. I told him he is more than [...] which 17 minutes was spent in direct [id number] counseling and educating the patient about his condition, as well as treatment options available to him. Kobe Conrad P.A.-C./dirk Electronically Signed By: KOBE CONRAD PA-C On: 01/16/2015 11:57 AM Source: [facility] MHSDOLBEYNONRADSYS Document Id: [id number] documented in this encounter Miscellaneous Notes Miscellaneous - Kobe Conrad - 01/10/2015 3:46 PM CDT Ambulatory Patient Summary [address] [id number] Visit Information Name: LUIS ARMANDO RYLEY RASHAWNANA [facility] Number: [id number] Current Date: 01/10/2015 15:46:00 Physicians [...] if you dont have one. Go to [email or web address] and click on Create Your Account. Then, follow the directions to complete the online form. Youll be asked for your [facility] number which you can find at the top of this document. Your Goals/Additional instructions: Source: [facility] POWERCHART Document Id: [id number] Miscellaneous - Kobe Conrad - 01/10/2015 3:45 PM CDT Ambulatory Discharge Medication List [address] [id number] Visit Information Name: LUIS ARMANDO RYLEY NIECY [facility] Number: [id number] Visit Date: 01/10/2015 15:45:59 Attending Provider: KOBE CONRAD PA-C Primary Care Provider: PCP, ELSEWHERE LUIS ARMANDORYLEY has been given the following list of [...] PA-C Signed On:10-JAN-2015 15:45:53 Additional Information: Source: [facility] POWERCHART Document Id: [id number] Miscellaneous - Trini Dodson R.N. - 01/10/2015 7:59 AM CDT Adult Boom Man Intake/History Adult Boom Man Intake/History Entered On: 01/10/2015 8:03 CDT Performed On: 01/10/2015 7:59 CDT by TRINI DODSON nca certified concierge Chief Complaint : right shoulder pain for [...] Preferred Communication Mode : Verbal Languages : Dominican Is Patient Female and [...] DODSON RN - 01/10/2015 7:59 CDT Source: [employer] Document Id: [id number] CDT!38 documented in this encounter Plan of Treatment Not on filedocumented as of this encounter Visit Diagnoses Not on filedocumented in this encounter
--- OUTSIDE RECORDS SUMMARY | 2022-04-11 08:12 | XMS_ITS | Encounter Summary ---
:1940 Author Organization [facility] Address [address] [place] [address] Care Team Providers Name Role Phone Unavailable Primary Care Provider Unavailable Encounter Details Date Type Department Care Team Description 01/29/2012 Hospital [facility] Paulette Pittman, P.A.-C. Social History Tobacco Use Types Packs/Day [...] Aydin Pittman - 01/29/2012 3:30 PM CDT [id number] SUBJECTIVE: F body Rt Ear today From hearing aid OBJECTIVE: saame ASSESSMENT 1. Foreign body in ear Plan;removed without Problem, rubber tip Tm ok canal ok Source[facility] Document Id: [id number] Electronically signed by Conversion, [facility] Cook Chill Technician [id number] at 10/05/2016 4:46 PM CDT documented in this encounter Plan of Treatment Not on filedocumented as of this encounter Visit Diagnoses Not on filedocumented in this encounter
--- OUTSIDE RECORDS SUMMARY | 2022-04-11 08:12 | XMS_ITS | Encounter Summary ---
:1940 Author Organization [facility] Address [address] [place] [address] Care Team Providers Name Role Phone Unavailable Primary Care Provider Unavailable Encounter Details Date Type Department Care Team Description 05/12/2015 Hospital Encounter HX [facility] Rodger Miranda M.D. [address] [place], [place] [phone] (Wo rk) Social History [...] Duenas M.D. - 05/12/2015 8:14 AM CST [id number] CHIEF COMPLAINT/REASON FOR VISIT Follow up status [...] DUENAS MD On: 05/15/2015 07:26 AM Source: [facility] MHSDOLBEYNONRADSYS Document Id: [id number] [employer] documented in this encounter Miscellaneous Notes Miscellaneous - Marv Duenas M.D. - 05/12/2015 9:32 AM CST Ambulatory Patient Summary [facility] [address], [address] [place], [place] [phone] Visit Information Name: RYLEY VINES [facility] Number: [id number] Current Date: 05/12/2015 09:32:50 Physicians [...] if you dont have one. Go to [email or web address] and click on Create Your Account. Then, follow the directions to complete the online form. Youll be asked for your [facility] number which you can find at the top of this document. Your Goals/Additional instructions: Source: [facility] POWERCHART Document Id: [id number] TEE OF ESTATE Miscellaneous - Marv Duenas M.D. - 05/12/2015 9:32 AM CST Ambulatory Discharge Medication List [facility] [address], [address] [place], [place] [phone] Visit Information Name: RYLEY VINES [facility] Number: [id number] Visit Date: 05/12/2015 09:32:49 Attending Provider: MARV DUENAS MD Primary Care Provider: PCP, ELSEWHERE RYLEY VINES NIECY has been given the following list of [...] MD Signed On:12-MAY-2015 09:32:43 Additional Information: Source: [facility] POWERCHART Document Id: [id number] TEE OF ESTATE Miscellaneous - Annemarie Mcgee LLaraPLaraNLara - 05/12/2015 9:05 AM CST Adult Porcelain Waxer Intake/History Adult Porcelain Waxer Intake/History Entered On: 05/12/2015 9:05 [employer] Performed On: 05/12/2015 9:05 [employer] by ANNEMARIE MCGEE LPN Intake Chief Complaint : Patient here for post op right TSA, [id number], c/o right hand swelling, x-rays obtained ANNEMARIE MCGEE LPN - 05/12/2015 9:05 [employer] General Info Information Given By : Patient Preferred Communication Mode : Verbal Languages : Jordanian Is Patient Female and 13-50 no hysterectomy : No ANNEMARIE MCGEE LPN - 05/12/2015 9:05 [employer] Subjective Pain Symptoms : No ANNEMARIE MCGEE LPN - 05/12/2015 9:05 [employer] Dependent Habits Exposure to Tobacco Smoke : Other: former Smoking Status : Former smoker Tobacco 2A : Yes Tobacco Use/Currently Using : No Tobacco Use/Last 30 Days : No Tobacco Use/Last 12 months : No ANNEMARIE MCGEE LPN - 05/12/2015 9:05 [employer] Caffeine Use Grid Caffeine Use : Current Type : Coffee Frequency : Daily ANNEMARIE MCGEE LPN - 05/12/2015 9:05 [employer] Source: [employer] Document Id: [id number] [employer]USTEE OF ESTATE!22 TEE OF ESTATE documented in this encounter Plan of Treatment Not on filedocumented as of this encounter Visit Diagnoses Not on filedocumented in this encounter Additional Health Concerns Assessment Noted Time PHQ-9 Depression Total Score: 2 03/08/2015 11:16 AM CS T documented as of this encounter
--- OUTSIDE RECORDS SUMMARY | 2022-04-11 08:12 | XMS_ITS | Encounter Summary ---
:1940 Author Organization [facility] Address [address] [place] [address] Care Team Providers Name Role Phone Unavailable Primary Care Provider Unavailable Encounter Details Date Type Department Care Team Description 06/25/2016 Hospital Encounter HX [facility] Ricardo Givens M.D., Ph.D. [address] [place] [phone] (Wo rk) Social History Tobacco Use Types Packs/Day Years Used Date Smoking Tobacco: Former Sex Assigned at Date Recorded Not on file documented as of this encounter Last Filed Vital Signs Vital Sign Reading Time Taken Comments Blood Pressure 114/89 06/25/2016 8:20 AM HISTOLOGIST TECHNOLOGIST Pulse 56 06/25/2016 8:20 AM HISTOLOGIST TECHNOLOGIST Temperature - - Respiratory Rate 16 06/25/2016 8:20 AM HISTOLOGIST TECHNOLOGIST Oxygen Saturation - - Inhaled Oxygen Concentration - - Weight 69 kg (152 lb 1.9 oz) 06/25/2016 8:20 AM HISTOLOGIST TECHNOLOGIST Height 168 cm (5' 6.14) 06/25/2016 8:20 AM HISTOLOGIST TECHNOLOGIST Body Mass Index 24.45 06/25/2016 8:20 AM HISTOLOGIST TECHNOLOGIST documented in this encounter Medications at Time [...] suggests that it was the tartrate formulation. [id number] Take 1 tablet by 0 06/0608/15/2018 ifrah [...] Colon, polyp, benign Coronary Artery Disease (CAD) [place] V[place] Diverticulosis of Colon (Without Mention of [...] Ordered: OV Est Pt Level 4 - 92454 - 25 min 2. Screening Cancer Colon Referral for colonoscopy. Ordered: OV Est Pt Level 4 - 22273 - 25 min 3. Coronary Artery Disease (CAD) [place] Continue current medications and treatments. Pros/cons/side effects/alternatives and complications reviewed in detail. He is intolerant of statins. Ordered: nitroglycerin, 0.4 mg = 1 tab(s), SL, q5min, PRN Chest Pain, # 25 tab(s), 11 Refill(s), Maintenance, Pharmacy: [facility] EKG Notify Nurse - EKG Ordered OV Est Pt Level 4 - [address]609 - 25 min 4. Elevated Blood Pressure Continue current medications and treatments. Pros/cons/side effects/alternatives and complications reviewed in detail. Ordered: CBC without Diff Comprehensive Metabolic Panel Lipid Panel* OV Est Pt Level 4 - 92519 - 25 min Urinalysis with Microscopic if Indicated 5. Vitamin D Deficiency Continue current medications and treatments. Pros/cons/side effects/alternatives and complications reviewed in detail. Ordered: 25-Hydroxyvitamin D2 and D3-[place] 25HDN OV Est Pt Level 4 - 44391 - 25 min Orders: Schedule Procedure Colonoscopy Electronically Signed By: TEA GIVENS MD On: 06/25/2016 09:04 AM Source: [facility] POWERCHART Document Id: [id number] OLOGIST TECHNOLOGIST documented in this encounter Miscellaneous Notes Telephone Encounter - Conversion, Historical Provider Ser - 07/01/2016 2:20 PM CST *Phone Message Document Contains Addenda Addendum by EVERTON GARCIA LPN on July 01, 2016 14:35:52 HISTOLOGIST TECHNOLOGIST Patient aware of results and wanted to discuss lab results. From: HARDIK ONEIL ([facility] Plastic Card Grader Cardroom) To: [facility] Nurse Rodrick; Sent: 07/01/2016 14:20:26 HISTOLOGIST TECHNOLOGIST Subject: *Phone Message Caller is: ( x ) Patient ( ) Mother ( ) Father ( ) Spouse ( ) Daughter ( ) Son ( ) Pharmacy ( ) Other: Physician: Chon Patient MRN #: Reason for Call: Patient would like to talk about his ultrasound results from today with Dr. Givens.He wants a call back at [phone] Message: Advice/Action: Source used: ( ) Verbalizes [...] back cell phone number ( ) Source: [facility] POWERCHART Document Id: [id number] Miscellaneous - Tea Givens M.D. - 06/27/2016 7:47 PM CST Normal Results Letter June 27, 2016 RYLEY VINES [address] [place] [id number] Dear RYLEY VINES, I am pleased to [...] 03/24/2015 150 - 450 Sincerely, TEA GIVENS [address] [address] Electronic Signature Electronically Signed By: TEA GIVENS MD On: June 27, 2016 This document has images extracted. Source: [facility] POWERCHART Document Id: [id number] Electronically signed by Cheryl [facility] Life Insurance Salesperson [id number] at 10/15/2016 1:01 AM CDT Miscellaneous - Tea Givens M.D. - 06/27/2016 7:44 PM CST Addendum by WOJCIECH ELDRIDGE LPN on June 28, 2016 10:39:27 HISTOLOGIST TECHNOLOGIST Left a detailed message with the below information. From: TEA GIVENS MD To: [facility] Nurse Rodrick; Sent: 06/27/2016 19:44:44 HISTOLOGIST TECHNOLOGIST Call, Labs look good, except his liver enzymes are elevated. I recommend US of the liver to evaluatethis further. He shouldn't worry about this much, as there are a lot of reasons for elevated liver enzymes. I put an order for US of the liver. Source: [facility] POWERCHART Document Id: [id number] Electronically signed by Conversion, [facility] Life Insurance Salesperson [id number] at 10/15/2016 1:01 AM CDT Miscellaneous - Tea Givens M.D. - 06/25/2016 8:59 AM CST Ambulatory Patient Summary [place] [phone] [facility] [address] [place], [place] [phone] Visit Information Name: RYLEY VINES [facility] Number: [id number] Current Date: 06/25/2016 08:59:16 Physicians [...] needed for Chest Pain New Routed to [address] [address] omeprazole (Prilosec 20 mg oral delayed release [...] of Hemorrhage) Active Coronary Artery Disease (CAD) [place] Active Your Upcoming Appointments Date Time [...] if you dont have one. Go to [email or web address] and click on Create Your Account. Then, follow the directions to complete the online form. Youll be asked for your [facility] number which you can find at the top of this document. Your Goals/Additional instructions: Source: [facility] POWERCHART Document Id: [id number] OLOGIST TECHNOLOGIST Miscellaneous - Tea Givens M.D. - 06/25/2016 8:59 AM CST Ambulatory Discharge Medication List [address] [place] [phone] Visit Information Name: RYLEY VINES [facility] Number: [id number] Current Date: 06/25/2016 08:59:15 Attending [...] needed for Chest Pain New Routed to [address] [place] [address] omeprazole (Prilosec 20 mg oral delayed release [...] MD Signed On:25-JUN-2016 08:59:12 Additional Information: Source: [facility] POWERCHART Document Id: [id number] OLOGIST TECHNOLOGIST Miscellaneous - Everton Garcia L.P.N. - 06/25/2016 8:20 AM CST Adult Filament Cutter Intake/History Adult Filament Cutter Intake/History Entered On: 06/25/2016 8:25 HISTOLOGIST TECHNOLOGIST Performed On: 06/25/2016 8:20 HISTOLOGIST TECHNOLOGIST by EVERTON GARCIA LPN Intake Chief Complaint [...] kg/m2 EVERTON GARCIA LPN - 06/25/2016 8:20 HISTOLOGIST TECHNOLOGIST General Info Information Given By : Patient Languages : Citizen Of [place] Is Patient Female and 13-50 no hysterectomy : No EVERTON GARCIA LPN - 06/25/2016 8:20 HISTOLOGIST TECHNOLOGIST Subjective Pain Symptoms : No EVERTON GARCIA LPN - 06/25/2016 8:20 HISTOLOGIST TECHNOLOGIST Dependent Habits Exposure to Tobacco Smoke : Other: former Smoking Status : Former smoker Tobacco 2A : Yes Tobacco Use/Currently Using : No Tobacco Use/Last 30 Days : No Tobacco Use/Last 12 months : No EVERTON GARCIA LPN - 06/25/2016 8:20 HISTOLOGIST TECHNOLOGIST Caffeine Use Grid Caffeine Use : Current Type : Coffee Frequency : Daily EVERTON GARCIA LPN - 06/25/2016 8:20 HISTOLOGIST TECHNOLOGIST Source: [facility] POWERCHART Document Id: [id number] HISTOLOGIST TECHNOLOGIST!35 OLOGIST TECHNOLOGIST documented in this encounter Plan of Treatment Not on filedocumented as of this encounter Procedures Procedure Name Priority Date/Time Associated Comments Diagnosis URINALYSIS, ROUTINE Routine 06/25/2016 9:35 AM Re sults for this HISTOLOGIST TECHNOLOGIST procedure are i n the results section. URINE MICROSCOPIC Routine 06/25/2016 9:35 AM Resu lts for this HISTOLOGIST TECHNOLOGIST procedure are i n the results section. LIPID PANEL, S Routine 06/25/2016 9:09 AM Results for this HISTOLOGIST TECHNOLOGIST procedure are i n the results section. 25-HYDROXYVITAMIN D2 Routine 06/25/2016 9:09 AM R esults for this AND D3, S HISTOLOGIST TECHNOLOGIST procedure are i n the results section. CBC WITHOUT Routine 06/25/2016 9:09 AM Results f or this DIFFERENTIAL, B HISTOLOGIST TECHNOLOGIST procedure ar e in the results section. COMPREHENSIVE Routine 06/25/2016 9:09 AM Results for this METABOLIC PANEL, S/P HISTOLOGIST TECHNOLOGIST procedu re are in the results section. ECG Routine 06/25/2016 9:01 AM Results f or this HISTOLOGIST TECHNOLOGIST procedure are i n the results section. documented in this encounter Results Urine Microscopic (06/25/2016 9:35 AM HISTOLOGIST TECHNOLOGIST) athologist Signature HXUR WBC. Occ-3 HPF POWERCHART HXUR RBC. Occ-2 HPF POWERCHART Squamous Occ-3 HPF POWERCHART Epithelial Specimen Anatomical Collection Method Collection Time Receive d Time (Source) Location / / Volume Laterality Urine, First 06/25/2016 9:35 AM 7 9:35 Voided HISTOLOGIST TECHNOLOGIST AM HISTOLOGIST TECHNOLOGIST Tea Givens M.D., Ph.D. LAB URINE ORDERABLES Performing Organization Address City/State/ZIP Code Phon e Number POWERCHART (ABNORMAL) Urinalysis, Routine (06/25/2016 9:35 AM HISTOLOGIST TECHNOLOGIST) P athologist Signature Clarity Clear Clear POWERCHART HXUr Color Yellow Colorless POWERCHART Specific 1.015 POWERCHART Leon, POCT, U Comment: Reference Range Specific Leon: 1.000-1.035 pH, POCT, Urine 5.5 <5.0 POWERCHART [...] Laterality Urine, First 06/25/2016 9:35 AM Voided HISTOLOGIST TECHNOLOGIST Tea Givens M.D., Ph.D. LAB URINE ORDERABLES Performing Organization Address City/[facility] Code Phon e Number POWERCHART CBC without Differential (06/25/2016 9:09 AM HISTOLOGIST TECHNOLOGIST) P athologist Signature Leukocytes 6.6 3.5 - 10.5 POWERCHART X109L Erythrocytes 5.09 4.32 - 5.72 POWERCHART B4806C Hemoglobin 15.4 13.5 - 17.5 POWERCHART GDL Hematocrit 46.4 38.8 - 50.0 POWERCHART MCV 91.2 81.2 - 95.1 POWERCHART FL HX RDW 14.1 11.8 - 15.6 POWERCHART Platelet Count 208 150 - 450 POWERCHART X109L Specimen (Source) Anatomical Collection Method Collection Time Re ceived Time Location / / Volume Laterality Blood 06/25/2016 9:09 AM HISTOLOGIST TECHNOLOGIST Tea Givens M.D., Ph.D. LAB BLOOD ADD-ON Performing Organization Address City/[facility] Phon e Number POWERCHART Lipid Panel (06/25/2016 9:09 AM HISTOLOGIST TECHNOLOGIST) P athologist Signature Cholesterol, 176 <=199 MGDL [...] mg/dL Triglycerides 106 <=149 MGDL POWERCHART Comment: 2013 National Lipid Association recommen dations for Triglycerides [...] for FH and FDB is available bell [facility]: FH/ADH Genetic Reflex Mcmahan [...] at or the on-line test catalog at [employer] for information about how to order these rachael ts or to speak with a genetic counselor. Further interpretation would require clinical information. Total Cholesterol/HDL Ratio 3 PO WERCHART Specimen (Source) Anatomical Collection Method Collection Time Re ceived Time Location / / Volume Laterality Blood 06/25/2016 9:09 AM HISTOLOGIST TECHNOLOGIST Tea Givens M.D., Ph.D. LAB BLOOD ADD-ON Performing Organization Address City/State/ZIP Code Phon e Number POWERCHART (ABNORMAL) CMP (Comprehensive Metabolic Panel) (06/25/2016 9:09 AM HISTOLOGIST TECHNOLOGIST) Patholo gist Method Time Signature Alanine 67 [...] POWERCHART MMOLL HXeGFR (MDRD) >60 >=60 POWERCHART GOMUD801X 2 eGFR Black/ >60 >=60 POWERCHART [place] [id number] 2 Bilirubin, Total, S 1.2 <=1.2 POWERCHART MGDL Total Protein, S 7.6 6.3 - 7.9 POWERCHART GDL Glucose 109 70 - 139 POWERCHART MGDL Specimen (Source) Anatomical Collection Method Collection Time Re ceived Time Location / / Volume Laterality Blood 06/25/2016 9:09 AM HISTOLOGIST TECHNOLOGIST Tea Givens M.D., Ph.D. LAB BLOOD ADD-ON Performing Organization Address City/State/ZIP Code Phon e Number POWERCHART 25-Hydroxyvitamin D2 and D3 (06/25/2016 9:09 AM HISTOLOGIST TECHNOLOGIST) P athologist Signature HX25 HYDROXY D2 <4.0 [...] and its performa nce characteristics determined by [facility] in a manner co nsistent with CLIA requirements. This test has not been jeremias ared or approved by the U.S. Food and Drug Administration. Test Performed by: [place] [address] Curing Room Worker: Coy Sherwood II, M.D., Ph.D. Specimen (Source) Anatomical Collection Method Collection Time Re ceived Time Location / / Volume Laterality Blood 06/25/2016 9:09 AM HISTOLOGIST TECHNOLOGIST Tea Givens M.D., Ph.D. LAB BLOOD ADD-ON Performing Organization Address City/State/ZIP Code Phon e Number POWERCHART ECG 12 Lead (06/25/2016 9:01 AM HISTOLOGIST TECHNOLOGIST) Specimen (Source) Anatomical Collection Method Collection Time Re ceived Time Location / / Volume Laterality 06/25/2016 9:01 AM HISTOLOGIST TECHNOLOGIST [facility] - 06/25/2016 9:01 AM HISTOLOGIST TECHNOLOGIST Test Reason : PREOP, CAD Blood Pressure [...] ECG ORDERABLES Performing Organization Address City/State/ZIP Code [facility] e Number [facility] [address] [place] [id number] documented in this encounter Visit Diagnoses Not on filedocumented in this encounter Additional Health Concerns Assessment Noted Time PHQ-9 Depression Total Score: 2 03/08/2015 11:16 AM CS T documented as of this encounter
--- OUTSIDE RECORDS SUMMARY | 2022-04-11 08:12 | XMS_ITS | Encounter Summary ---
:1940 Author Organization [facility] Address [address] [place] [address] Care Team Providers Name Role Phone Unavailable [...]
--- OUTSIDE RECORDS SUMMARY | 2022-04-11 08:12 | XMS_ITS | Encounter Summary ---
:1940 Author Organization [facility] Address [address] [place] [address] Care Team Providers Name Role Phone Unavailable Primary Care Provider Unavailable Encounter Details Date Type Department Care Team Description 11/02/2014 Hospital Encounter HX [facility] Corby Woodward MMarry [address] [place] [address] (Wo rk) Social History Tobacco Use Types [...] Summary-Paper Based CODING DATE: 11/08/2014 FINAL [place] [facility] STATUS: * Discharged to Home [...] MCGUIRE Date Saved: 11/08/2014 09:46 am Source: [employer] Document Id: [id number] documented in this encounter Plan of Treatment Not on filedocumented as of this encounter Visit Diagnoses Not on filedocumented in this encounter
--- OUTSIDE RECORDS SUMMARY | 2022-04-11 08:12 | XMS_ITS | Encounter Summary ---
:1940 Author Organization [facility] Address [address] [place] [address] Care Team Providers Name Role Phone Unavailable Primary Care Provider Unavailable Encounter Details Date Type Department Care Team Description 08/08/2015 Hospital Encounter HX [facility] ENT Maggie Osborne M.D. [address] [place], [place] [phone] (Wo rk) Social History [...] Osborne M.D. - 08/08/2015 8:04 AM CDT [id number] Mr. Vines is a pleasant 75-year-old gentleman. CHIEF COMPLAINT/REASON FOR VISIT Blood in ear canals, consult at the request of Laila Loco CNP, [facility]. HISTORY OF PRESENT ILLNESS Mr. Vines reports recently he was noted to have blood in both ears. He was told they look different. He had a history of cerumen impaction which is typically uneventfully debrided at [facility]. He said recently he used a toothpick [...] history. SOCIAL HISTORY No tobacco. 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 PHYSICAL EXAMINATION GENERAL: He appears well. No [...] otherwise. Maggie Osborne M.D./dirk cc: Laila Loco, CALENDER LET OFF HELPER, SAND MIXER OPERATOR [facility] [address] [place] [address] Electronically Signed By: MAGGIE OSBORNE MD On: 08/15/2015 07:59 AM Source: [facility] MHSDOLBEYNONRADSYS Document Id: [id number] documented in this encounter Miscellaneous Notes Miscellaneous - Maggie Osborne M.D. - 08/08/2015 9:11 AM CDT Ambulatory Patient Summary [facility] [address] [facility], [address] [place], [place] [phone] Visit Information Name: RYLEY VINES [facility] Number: [id number] Current Date: 08/08/2015 09:11:13 Physicians [...] if you dont have one. Go to [email or web address] and click on Create Your Account. Then, follow the directions to complete the online form. Youll be asked for your [facility] number which you can find at the top of this document. Your Goals/Additional instructions: Source: [facility] POWERCHART Document Id: [id number] Miscellaneous - Maggie Osborne M.D. - 08/08/2015 9:11 AM CDT Ambulatory Discharge Medication List [facility] [address], [address] [place], [place] [phone] Visit Information Name: RYLEY VINES [facility] Number: [id number] Visit Date: 08/08/2015 09:11:13 Attending Provider: MAGGIE OSBORNE MD Primary Care Provider: PCP, MAKENZIE RYLEY [...] MD Signed On:08-AUG-2015 09:10:58 Additional Information: Source: [facility] POWERCHART Document Id: [id number] Miscellaneous - Kami Redmond, C.M.ALara - 08/08/2015 8:19 AM CDT Adult Allergy Physician Intake/History Adult Allergy Physician Intake/History Entered On: 08/08/2015 8:19 CDT Performed [...] Preferred Communication Mode : Verbal Languages : Pashto Is Patient Female and 13-50 no hysterectomy [...] [facility] - 08/08/2015 8:19 CDT Source: [facility] [employer]CHART Document Id: [id number] CDT!7 documented in this encounter Plan of Treatment Not on filedocumented as of this encounter Visit Diagnoses Not on filedocumented in this encounter Additional Health Concerns Assessment Noted Time PHQ-9 Depression Total Score: 2 03/08/2015 11:16 AM CS T documented as of this encounter
--- OUTSIDE RECORDS SUMMARY | 2022-04-11 08:12 | XMS_ITS | Encounter Summary ---
:1940 Author Organization [facility] Address [address] [place] [address] Care Team Providers Name Role Phone Unavailable Primary Care Provider Unavailable Encounter Details Date Type Department Care Team Description 02/08/2015 Hospital Encounter HX [facility] Rodger Miranda M.D. [address] [place], [place] [phone] (Wo rk) Social History [...] Dodson M.D. - 02/08/2015 10:53 AM CDT [id number] CHIEF COMPLAINT/REASON FOR VISIT Right shoulder pain [...] atrophy. He is here today to ankur perezuss his options of treatment. He has had [...] DODSON MD On: 02/08/2015 09:02 PM Source: [facility] MHSDOLBEYNONRADSYS Document Id: [id number] documented in this encounter Miscellaneous Notes Miscellaneous - Yovana Shelton, L.P.N. - 02/08/2015 12:40 PM CDT Ortho surgery letter From: YOVANA SHELTON LPN ( Orthopedic Nurse) To: 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 Surgery Clinic Checklist Patient Contact Number: [phone] Surgeon: [place] Surgical Service: (x) Orthopedics (_) General surgery [...] Other Pre-op MD: pt will schedule in [place] Post-Op Appt:(time frame when to return) 10-14 [...] Yes X-Ray Location (if not done in [facility]): 02/08/15 CPM Post-op: (_) No (_) Yes- please make sure MD places order If Total Joint Case: Type of Prosthesis: Lisa reverse components Additional equipment: _ Has other side been done: (x) No (_) Yes Source: [facility] POWERCHART Document Id: [id number] Miscellaneous - Ana Rosa Dodson M.D. - 02/08/2015 11:53 AM CDT Ambulatory Patient Summary [facility] [address], [address] [place], [place] [phone] Visit Information Name: RYLEY VINES [facility] Number: [id number] Current Date: 02/08/2015 11:53:30 Physicians Attending Provider: ANA ROSA DODSON MD Primary Care Provider: PCP, ELSEWHERE SACHINRYLEY Soares [...] if you dont have one. Go to [email or web address] and click on Create Your Account. Then, follow the directions to complete the online form. Youll be asked for your [facility] number which you can find at the top of this document. Your Goals/Additional instructions: Source: [facility] POWERCHART Document Id: [id number] Miscellaneous - Ana Rosa Dodson M.D. - 02/08/2015 11:53 AM CDT Ambulatory Discharge Medication List [address] [place], [place] [phone] Visit Information Name: RYLEY VINES RASHAWNANA [facility] Number: [id number] Visit Date: 02/08/2015 11:53:30 Attending [...] MD Signed On:08-FEB-2015 11:53:26 Additional Information: Source: [employer] [place] Document Id: [id number] Miscellaneous - Bashir Hutton, C.M.ALara - 02/08/2015 11:03 AM CDT Adult Breaker Up Machine Operator Intake/History Adult Breaker Up Machine Operator Intake/History Entered On: 02/08/2015 11:03 CDT Performed On: 02/08/2015 11:03 CDT by BASHIR HUTTON Intake Chief Complaint : Consult right shoulder. BASHIR HUTTON - 02/08/2015 11:03 CDT General Info Information Given By : Patient Preferred Communication Mode : Verbal Languages : Citizen Of [place] Is Patient [...] BASHIR HUTTON - 02/08/2015 11:03 CDT [facility] Document Id: [id number] CDT!22 documented in this encounter Plan of Treatment Not on filedocumented as of this encounter Visit Diagnoses Not on filedocumented in this encounter
--- OUTSIDE RECORDS SUMMARY | 2022-04-11 08:12 | XMS_ITS | Encounter Summary ---
:1940 Author Organization [facility] Address [address] [place] [address] Care Team Providers Name Role Phone Unavailable Primary Care Provider Unavailable Encounter Details Date Type Department Care Team Description 07/10/2016 Hospital Encounter HX [facility] Kalyan Taveras ROO M.D. [address] [place] [phone] (wo rk) Social History Tobacco Use Types Packs/Day Years Used Date Smoking Tobacco: Former Sex Assigned at Date Recorded Not on file documented as of this encounter Last Filed Vital Signs Vital Sign Reading Time Taken Comments Blood Pressure 133/78 07/10/2016 12:09 PM [employer]OU[employer] Pulse 61 07/10/2016 12:09 PM [employer] Temperature - - Respiratory Rate 20 07/10/2016 12:09 PM [employer] Oxygen Saturation - - Inhaled Oxygen Concentration - - Weight - - Height - - Body Mass Index - - documented in this encounter Discharge Summaries Britt Patterson R.N. - 07/10/2016 12:21 PM CST Hospital Discharge Instructions [address] [id number] Patient Discharge Instructions Name: RYLEY DURÁN Current Date: 07/10/2016 12:21:54 : 1940 12:00 AM [facility] Number: [id number] Patient Address: [address] [place] [id number] Patient Primary Care Provider: Name: PCP, MAKENZIE Phone: Discharge Diagnosis: [facility] in [place] would like to thank you for allowing [...] if you dont have one. Go to [email or web address] and click on Create Your Account. Then, follow the directions to complete the online form. Youll be asked for your [facility] number which you can find at the top of this document. LUIS ARMANDO Reed MARK ARNOLD , have received the attached patient education materials/instructions and haveverbalized understanding: Patient Signature Date Time Care Provider Signature Date Time 51530 Endoscopy/Colonoscopy/Flexible Sigmoidoscopy Post-Procedure Discharge Instructions Date: Sunday, [...] call your doctor or the Emergency Department ([phone])if you have any questions OR notice any [...] grain cereal with bran (Chex, Raisin Bran, [place] Bran), oatmeal, rolled oats, granola,wheat flakes, brown [...] all kinds OTHER: Popcorn, any spices ?? [phone] Inez Olivera, [address] [place] [address], [place] [address]. All rights reserved. This information is not [...] needed, you may be told to take eaxq-orr-hdlmtek stool softeners. To help relieve pain, antispasmodic [...] the option of having surgery with you. [place] to Colon Health Help keep your colon healthy with a diet that includes plenty of high-fiber fruits, vegetables, and whole grains. Drink plenty of liquids like water and juice. ?? [id number] [facility], [address] [place] [address], [place] [address]. All rights reserved. This information is not intended as a substitute for professional medical care. Always follow your healthcare professional's instructions. This document has images extracted. Please consider using [employer] for all your patient education needs. Source: [facility] POWERCHART Document Id: [id number] E[employer]OR [employer] JOURNALISM Britt Patterson R.N. - 07/10/2016 12:21 PM CST Hospital Discharge Medication List [address] [id number] Discharge Medication List Name: RYLEY DURÁN Current Date: 07/10/2016 12:21:53 : 1940 12:00 AM [facility] Number: [id number] Patient Address: [address] [place] [id number] Patient Primary Care Provider: Name: PCPMAKENZIE Phone: Discharge Diagnosis: [facility] in [place] would like to thank you for allowing [...] the Following Medications: Medication list as of 03-08-17 12:21 Attention: If you have any medications [...] PINKY ORDONEZ MD Signed On:10-JUL-2016 11:26:59 Source: [facility] [employer] Document Id: [id number] [employer] Britt Patterson R.N. - 07/10/2016 12:20 PM CST Discharge Summary Discharge Summary Entered On: 07/10/2016 12:21 [employer] J[employer] Performed On: 07/10/2016 12:20 [employer] JOU[employer] by BRITT PATTERSON RN DC Information Discharged to : Home independently, Home with family care Current Home Treatments : None Home Equipment : None Professional Skilled Services : None Special Services and Community Resources : None Mode of Discharge : Ambulatory Discharge Transportation : Private vehicle Accompanied By : Hydrodynamicist, Family Date/Time of Discharge : 07/10/2016 12:20 PROFESS[employer] JOURNAL[employer] Add'l Discharge Comments : patient has been discharged - waiting in [facility] for spouse to [facility] - she had an errand to the airport BRITT PATTERSON RN - 07/10/2016 12:20 PROFESSOR OF JOURNALISM Source: [facility] [employer] Document Id: [id number] PROFESSOR OF JOURNALISM!12 [employer] documented in this encounter Medications at Time [...] suggests that it was the tartrate formulation. tflzyzwavliy-jqtowpzy-ozm Take 1 tablet by 0 06/0608/15/2018 ifrah [...] Updated Preprocedure Checklist Entered On: 07/10/2016 10:24 [employer] JOU[employer] Performed On: 07/10/2016 10:21 [employer]OR [employer] JOURNAL[employer] by MICHEAL BENNETT RN Checklist Last Fluid Intake : 07/10/2016 7:00 [employer] JOURNAL[employer] Last Food Intake : 07/09/2016 12:00 PROFESSOR OF JOURNALISM MICHEAL BENNETT RN - 07/10/2016 10:21 PROFESSOR OF JOURNALISM Surgery Prep Grid Contacts/Glasses Removed : Yes Dentures Removed : NA (Comment: Full top and bottom [MICHEAL BENNETT RN - 07/10/2016 10:25 PROFESSOR OF JOURNALISM] ) Hairpins/Hairpiecies Removed : NA Hearing Aid Removed : Yes (Comment: R THOMAS [MICHEAL BENNETT RN - 07/10/2016 10:25 PROFESSOR OF JOURNALISM] ) Home Prep Complete : Yes Jewelry/Piercing Removed : NA Makeup/Nail Frisian Removed : NA Oral Hygiene : NA Preop Scrub AM of Surgery : NA Preop Scrub Night Prior to Surgery : NA Prosthesis Removed : NA Tampon Removed : NA Verified - No hair products used : NA Voided environmental protection geologist to procedure : Yes Wearing Patient Gown : Yes MICHEAL BENNETT RN - 07/10/2016 10:21 PROFESSOR OF JOURNALISM Patient Rights Grid Blood Consent Signed : NA Surgical/Procedure Consent Signed : Yes MICHEAL BENNETT RN - 07/10/2016 10:21 PROFESSOR OF JOURNALISM Family Location : , [place], going to the airport to pick someone up. Will be back to get patient. MICHEAL BENNETT RN - 07/10/2016 10:21 PROFESSOR OF JOURNALISM Checklist II Patient Safety Grid Allergy Band on and Verified : NA (Comment: Patient states NKDA, side effect from statins [MICHEAL BENNETT RN - 07/10/2016 10:25 PROFESSOR OF JOURNALISM] ) Anesthesia Consult : Yes Band on [...] NA MICHEAL BENNETT RN - 07/10/2016 10:21 PROFESSOR OF JOURNALISM RN Who Verified Site : MICHEAL BENNETT RN Physician Who Verified Site : PINKY ORDONEZ MD, KASEY J RN - 07/10/2016 10:21 PROFESSOR OF JOURNALISM SORAYA Screening Known Obstructive Sleep Apnea : No - NOT diagnosed with SORAYA SORAYA Score : No qualifying data available. SORAYA Results : No qualifying data available. MICHEAL BENNETT RN - 07/10/2016 10:21 PROFESSOR OF JOURNALISM SORAYA Assessment Do you have high blood pressure or have you been told to take medication for high blood pressure? : No Frequency of Snoring : Never Frequency of Gasping, Choking, Snorting : Never Total Number of Historical Features : 0 Neck Circumference (cm) : 40/41 Total Sleep Apnea Clinical Score Calc : 3 MICHEAL BENNETT RN - 07/10/2016 10:21 PROFESSOR OF JOURNALISM Valuables/Belongings Valuables/Belongings Grid Valuables at Bedside Clothes, Patient Valuables : Jacket, Pants, Shirt, Shoes, Undergarments MICHEAL BENNETT RN - 07/10/2016 10:25 PROFESSOR OF JOURNAL[employer] Room Orientation/Facility Policy Reviewed : Yes Home Medication Disposition : None brought in with patient MICHEAL BENNETT RN - 07/10/2016 10:25 PROFESSOR OF JOURNALISM Education Preprocedure Education Grid Procedure Type : Colonoscopy Education Topics : Anesthesia/Sedation, Pain management, Patient rights and responsibilities, Plan of care, Tubes/Drains/IV's Individuals Taught : Patient Barriers to Learning : None evident Teaching Method : Explanation, Printed materials Teaching Evaluation : Verbalizes understanding MICHEAL BENNETT RN - 07/10/2016 10:25 PROFESSOR OF JOURNAL[employer] Preop Holding Mode of Arrival : Ambulatory Preoperative Orders Complete : Yes MICHEAL BENNETT RN - 07/10/2016 10:25 PROFESSOR OF JOURNALISM Advance Directive Advanced Directives : No Advance Directive Additional Information : No MICHEAL BENNETT RN - 07/10/2016 10:25 PROFESSOR OF JOURNALISM Vital Signs Temperature Core : 36.0 DegC(Converted to: 96.8 DegF) (LOW) Peripheral Pulse Rate : 67 /min Respiratory Rate : 12 /min (LOW) Systolic Blood Pressure : 135 mmHg Diastolic Blood Pressure : 86 mmHg NIBP Mean : 102 mmHg SpO2 : 96 % Oxygen Therapy : Room air MICHEAL BENNETT RN - 07/10/2016 10:25 PROFESSOR OF JOURNAL[employer] Allergy (As Of: 07/10/2016 10:26:32 PROFESSOR OF JOURNALISM) Allergies (Active) statins Estimated Onset Date: Unspecified ; Reactions: myalgia ; Created By: SILVER ABDUL MD; Reaction Status: Active ; Category: Drug ; Substance: statins ; Type: Side Effect ; Updated By: SILVER ABDUL MD; Reviewed Date: 07/10/2016 10:26 PROFESSOR [employer] JOURNALISM Source: [facility] POWERCHART Document Id: [id number] PROFESSOR OF JOURNALISM!86 [employer] Pinky Ordonez M.D. - 07/10/2016 12:00 AM [...] Pinky Ordonez M.D./dirk cc: Silver Abdul M.D. [facility] [place] [address] Electronically Signed By: PINKY ORDONEZ MD On: 07/16/2016 09:29 AM Source: [facility] MHSDOLBEYNONRADSYS Document Id: [id number] documented in this encounter Nursing Notes Micheal Bennett R.N. - 07/10/2016 10:26 AM CST Day Surgery Admission History/Asmt Adult Document Has Been Updated Day Surgery Admission History/Asmt Adult Entered On: 07/10/2016 10:31 [employer] JOU[employer] Performed On: 07/10/2016 10:26 PROFESSOR OF JOURNALISM by MICHEAL BENNETT RN General Info Preferred Name : Ryley Admitted From : Non-Health Care Facility Point of Origin Mode of Arrival : Ambulatory Present in Room During Exam/Procedure : Spouse Preferred Communication Mode : Verbal Information Given By : Patient Languages : Kuwaiti Is Patient Female and 13-50 no hysterectomy : No MICHEAL BENNETT RN - 07/10/2016 10:26 PROF[employer] JOURNAL[employer] Allergy (As Of: 07/10/2016 10:31:05 PROFESSOR OF JOURNALISM) Allergies (Active) statins Estimated Onset Date: Unspecified ; Reactions: myalgia ; Created By: SILVER ABDUL MD; Reaction Status: Active ; Category: Drug ; Substance: statins ; Type: Side Effect ; Updated By: SILVER ABDUL MD; Reviewed Date: 07/10/2016 10:26 PROFESSOR OF JOURNALISM Anesth/Transfusion Anesthesia/Transfusions : Prior anesthesia reaction Anesthesia Reaction : Excessive post op nausea Transfusion Acceptable in Emergency : Yes Druze/Other Objections to Blood Transfusions : No MICHEAL BENNETT RN - 07/10/2016 10:26 PROFESSOR OF JOURNAL[employer] ID Screen Drug Resistant Organism : No MICHEAL BENNETT RN - 07/10/2016 10:26 PROFESSOR OF JOURNALISM Nutrition Have you recently lost weight without trying? : No Decreased Appetite Nutrition : No Tube Feedings or Parenteral Nutrition : No MST Score : 0 Home Diet : Regular Appetite : Excellent MICHEAL BENNETT RN - 07/10/2016 10:26 PROFESSOR OF JOURNALISM Home Environment Current Daily Living Assistance : None Living Situation : Home independently Home Equipment : None Sensory Deficits : None Mobility Assistance Prior to Admission : Independent Current Home Treatments : None Professional Skilled Services : None Special Services and Community Resources : None MICHEAL BENNETT RN - 07/10/2016 10:26 PROFESS[employer] JOURNAL[employer] Dependent Habits Exposure to Tobacco Smoke : Other: former Smoking Status : Former smoker Tobacco 2A : Yes Tobacco Use/Currently Using : No Tobacco Use/Last 30 Days : No Tobacco Use/Last 12 months : No MICHEAL BENNETT RN - 07/10/2016 10:26 PROFESSOR OF JOURNALISM Caffeine Use Grid Caffeine Use : Current Type : Coffee Frequency : Daily MICHEAL BENNETT RN - 07/10/2016 10:26 PROFESSOR OF JOURNALISM Psychosocial Adult Domestic Abuse Concerns : None Behavioral Health Screen/Safety Assmt : No Druze Preference : Evangelical MICHEAL BENNETT RN - 07/10/2016 10:26 PROFESSOR OF JOURNALISM Advance Directive Advanced Directives : No Advance Directive Additional Information : No MICHEAL BENNETT RN - 07/10/2016 10:26 PROFESSOR OF JOURNALISM Educ Needs Patient/Family Education Needs : Activity limitations/expectations, Plan of care, Safety, fall, Treatments/Procedures/Tests MICHEAL BENNETT RN - 07/10/2016 10:26 PROFESSOR OF JOURNALISM Learning Style Preference Adult Grid Patient : Verbal explanation, Printed materials Family : Verbal explanation MICHEAL BENNETT RN - 07/10/2016 10:26 PROFESSOR OF JOURNALISM Outpatient Assessment Procedural Respiratory : Respirations unlabored, [...] distress MICHEAL BENNETT RN - 07/10/2016 10:26 PROFESSOR OF JOURNAL[employer] Psycho/Emotional Affect/Behavior : Calm, Cooperative, Appropriate Pain Symptoms : No MICHEAL BENNETT RN - 07/10/2016 10:26 PROFESSOR OF JOURNALISM Coping Grid Identifies effective strategies : Yes Uses effective strategies : Yes Reports increase in psychological comfort : Yes Indicates sense of control : Yes Stressors perceived within control : Yes Stable mood with appropriate affect : Yes Behaviors indicate use of coping mechanism : Yes Family supportive and involved in care : Yes Values/Beliefs incorporated appropriately : Yes MICHEAL BENNETT RN 07/10/2016 10:26 PROFESSOR OF JOURNALISM Safety Grid Vision, Hearing, Mobility Adequate to Meet Safety Needs : Yes MICHEAL BENNETT RN - 07/10/2016 10:26 PROFESSOR OF JOURNALISM Peripheral IV Peripheral IV Assess/Intervention Grid Peripheral IV #1 IV Activity : Start Number of Attempts : 1 Date of Insertion : 07/10/2016 PROF[employer]OR OF JOURNALISM IV Site : Hand Laterality : Right Catheter Size : 20 Catheter Type : Over the needle Site Condition : No complications Dressing/ Activity : Transparent Flow/ Patency : No complications IV Equipment/Supplies : Regular Comments (Comment: Inserted by Reno Patterson RN [MICHEAL BENNETT RN - 07/10/2016 10:26 PROFESSOR OF JOURNALISM] ) MICHEAL BENNETT RN - 07/10/2016 10:26 PROFESSOR OF JOURNALISM Hawk Sensory Perception Hawk : No impairment Moisture Hawk : Rarely moist Activity Hawk : Walks frequently Mobility Hawk : No limitations Nutrition Hawk : Excellent Friction and Shear Hawk : No apparent problem Hawk Score : 23 MICHEAL BENNETT RN - 07/10/2016 10:26 PROFESSOR OF JOURNALISM Falls Assessment Fall Injury Risk History of Falls : No Patient at Risk for Falls : No Fall Injury Risk Factors : None of the below Risk Factors Patient has increased Fall Injury Risk : No MICHEAL BENNETT RN - 07/10/2016 10:26 PROFESSOR OF JOURNALISM Hendrich II Fall Risk Confusion/Disorientation Hendrich : [...] 2 MICHEAL BENNETT RN - 07/10/2016 10:26 PROFESSOR OF JOURNALISM DC Needs Anticipated Discharge Date : 07/10/2016 [employer] JOURNALISM Discharge To, Anticipated : Home with family group home Treatments, Anticipated : None Home Equipment, Anticipated : None Professional Skilled Services, Anticipated : None Special Serv & Comm Res, Anticipated : None Needs Assistance with Transportation : No Needs Assistance at Home Upon Discharge : No MICHEAL BENNETT RN - 07/10/2016 10:26 PROFESSOR OF JOURNALISM Source: [facility] POWERCHART Document Id: [id number] PROFESSOR OF JOURNALISM!126 E[employer]OURNAL[employer] Micheal Bennett R.N. - 07/04/2016 4:24 PM [...] (x) No. Comment: _ Do you have yazidism or other objection to having a blood [...] at home (x) Do you have a local company refrigerated truck driver. Please have their telephone number (x) NPO 2 hours prior to arrival (x) Check in information (x) Be sure to have verified your scheduled procedure with your insurance company [employer] Do not drive for 24 hours after procedure. Please have a local company refrigerated truck driver with you to take you home. Arrange for a person to stay with you at least 5 hours after procedure. If you have any questions at any time please call . Electronically Signed By: MICHEAL BENNETT RN On: 07/09/2016 02:29 PM Modified by and Electronically Signed by: MICHEAL BENNETT RN On: 07/09/2016 02:29 PM Source: [facility] POWERCHART Document Id: [id number] E[employer] JOURNALISM documented in this encounter OR Notes Op [...] APRN, CRNA On: 07/10/2016 12:45 PM Source: [employer] Document Id: [id number] ESSOR [employer] JOURNALISM documented in this encounter Miscellaneous Notes Miscellaneous - Arleth Ryan R.N. - 07/31/2016 3:08 PM CDT Reminder Msg From: ARLETH RYAN RN To: [place] Colonoscopy Pool; Sent: 07/31/2016 15:08:06 CDT Show up: 05/05/2021 15:08:00 PROFESSOR OF JOURNALISM Subject: Reminder Msg Due Date/Time: 07/03/2021 15:08:00 PROFESSOR OF JOURNALISM Please Remember to: Repeat scope in 5 years. PATIENT: ( ) Call Patient ( ) Ask Patient to ( ) ( ) Call Relative ( ) Schedule Patient ( ) ( ) Call for Yarn Weight And Strength Tester ( ) Follow up on Results ( ) Other: PROVIDER: ( ) Call Physician ( ) Call Pharmacist ( ) Call Lab ( ) Other: Special Instructions: Comments: [facility] Document Id: [id number] Miscellaneous - Britt Patterson, R.N. - 07/10/2016 12:20 PM CST Valuables/Belongings Valuables/Belongings Entered On: 07/10/2016 12:21 PROFESSOR OF JOURNALISM Performed On: 07/10/2016 12:20 PROFESSOR OF JOURNALISM by BRITT PATTERSON RN Valuables/Belongings Valuables/Belongings Grid Valuables at Bedside Clothes, Patient Valuables : Jacket, Pants, Shirt, Shoes, Undergarments BRITT PATTERSON RN - 07/10/2016 12:21 PROFESSOR OF JOURNALISM Room Orientation/Facility Policy Reviewed : Yes Belongings Sent Home With : all with patient Home Medication Disposition : None brought in with patient BRITT PATTERSON RN - 07/10/2016 12:21 PROFESSOR OF JOURNALISM Source: [facility] [employer] Document Id: [id number] PROFESSOR OF JOURNALISM!8 ESSOR OF JOURNALISM Miscellaneous - Cheryl, Radha Provider Ser - 07/10/2016 12:20 PM PROFESSOR OF JOURNALISM Coding Summary-Paper Based CODING DATE: 07/15/2016 FINAL [place] [facility] STATUS: * Discharged to Home or Self Care PAYOR: Medicare APC DESCRIPTION 5311 Level 1 Lower GI Procedures ADMIT DX: REASON FOR VISIT DX: FINAL DX: PRINCIPAL: Z12.11 Encounter for screening for malignant neoplasm of colon SECONDARY: Z86.010 Personal history of colonic polyps K57.30 Diverticulosis of large intestine without perforation or abscess without bleeding I25.10 Atherosclerotic heart disease of [place] coronary artery without angina pectoris E78.5 Hyperlipidemia, unspecified M35.3 Polymyalgia rheumatica E55.9 Vitamin D deficiency, unspecified M81.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 However, the narrative phrase printed from the coding software may appear abbreviated, or result in slightly different terminology. Coded By: TESSA TRAORE Date Saved: 07/12/2016 11:52 am Source: [employer] Document Id: [id number] Miscellaneous - Britt Patterson RLaraNLara - 07/10/2016 12:09 PM CST Adult Postprocedure Assessment Adult Postprocedure Assessment Entered On: 07/10/2016 12:12 PROFESSOR OF JOURNALISM Performed On: 07/10/2016 12:09 PROFESSOR OF JOURNALISM by BRITT PATTERSON RN Vital Signs Temperature Core : 36.0 DegC(Converted to: 96.8 DegF) (LOW) Peripheral Pulse Rate : 61 /min Respiratory Rate : 20 /min Systolic Blood Pressure : 133 mmHg Diastolic Blood Pressure : 78 mmHg NIBP Mean : 96 mmHg SpO2 : 96 % Oxygen Therapy : Room air BRITT PATTERSON RN - 07/10/2016 11:57 PROFESSOR OF JOURNALISM General Level of Consciousness : Alert Orientation : Oriented x 3 Skin Color : Normal for ethnicity Skin Description : Dry Skin Temperature : Warm Pain Symptoms : No BRITT PATTERSON RN - 07/10/2016 11:57 PROFESSOR OF JOURNALISM Cardiovascular Heart Rhythm : Regular Nail Bed Color : [employer] Capillary Refill : Less than 2 seconds BRITT PATTERSON RN - 07/10/2016 11:57 PROFESSOR OF JOURNALISM Respiratory Respirations : Unlabored Respiratory Pattern : Regular All Lobes Breath Sounds : Clear BRITT PATTERSON 07/10/2016 11:57 PROFESSOR OF JOURNALISM GI/ Nausea Symptoms : No BRITT PATTERSON 07/10/2016 11:57 PROFESSOR OF JOURNALISM Integumentary Skin Color : Normal for ethnicity Skin Description : Dry Skin Temperature : Warm BRITT PATTERSON 07/10/2016 11:57 PROFESSOR OF JOURNALISM I&O Oral Intake : 120 mL BRITT PATTERSON 07/10/2016 11:57 PROFESSOR OF JOURNALISM Neurologic Swallowing Difficulty/Aspiration Risk : None Extremity Movement : Equal Facial Symmetry : Symmetric Characteristics of Speech : BRITT Dean 07/10/2016 11:57 PROFESSOR OF JOURNALISM Activity Patient Position : Elevate head of bed 45 degrees Activity Status ADL : Up ad naomy Activity Assistance : Independent BRITT PATTERSON 07/10/2016 11:57 PROFESSOR OF JOURNALISM PARSAP Activity Status : Moves 4 extremities [...] Score : 20 BRITT PATTERSON 07/10/2016 11:57 PROFESSOR OF JOURNALISM Vale Vale Agitation Sedation Scale (RASS) : Alert and calm RASS Score : 0 BRITT PATTERSON 07/10/2016 11:57 PROFESSOR OF JOURNALISM Hawk Sensory Perception Hawk : No impairment Moisture Hawk : Rarely moist Activity Hawk : Walks frequently Mobility Hawk : No limitations Nutrition Hawk : Excellent Friction and Shear Hawk : No apparent problem Hawk Score : 23 BRITT PATTERSON 07/10/2016 11:57 PROFESSOR OF JOURNALISM Falls Assessment Fall Injury Risk History of Falls : No Patient at Risk for Falls : No Fall Injury Risk Factors : None of the below Risk Factors Patient has increased Fall Injury Risk : No BRITT PATTERSON 07/10/2016 11:57 PROFESSOR OF JOURNALISM Hendrich II Fall Risk Confusion/Disorientation Hendrich : [...] 1 BRITT PATTERSON RN - 07/10/2016 11:57 PROFESSOR OF JOURNALISM Safe Patient Handling Safe Pt Handling Independent : Yes - No equipment needed Safe Pt Handling Equipment Rec : No Equipment Needed BRITT PATTERSON RN - 07/10/2016 11:57 PROFESSOR OF JOURNALISM Education General Patient Education [employer] Topics : Activity limitations/expectations, Discharge instructions/Medication list, Physical limitations, Plan of care, Printed materials, Safety, fall, When to call health care provider Individuals Taught : Patient Barriers to Learning : None evident Teaching Method : Explanation Teaching Evaluation : Verbalizes understanding BRITT PATTERSON RN - 07/10/2016 11:57 PROFESSOR OF JOURNALISM [facility] Document Id: [id number] PROFESSOR OF JOURNALISM!91 ESSOR OF JOURNALISM Miscellaneous - Britt Patterson RSelvin - 07/10/2016 11:48 AM CST Adult Postprocedure Assessment Adult Postprocedure Assessment Entered On: 07/10/2016 11:51 PROFESSOR OF JOURNALISM Performed On: 07/10/2016 11:48 PROFESSOR OF JOURNALISM by BRITT PATTERSON RN Vital Signs Peripheral Pulse Rate : 66 /min Respiratory Rate : 20 /min Systolic Blood Pressure : 139 mmHg Diastolic Blood Pressure : 79 mmHg NIBP Mean : 99 mmHg SpO2 : 97 % Oxygen Therapy : Room air BRITT PATTERSON RN - 07/10/2016 11:48 PROFESSOR OF JOURNALISM General Level of Consciousness : Alert Orientation : Oriented x 3 Skin Color : Normal for ethnicity Skin Description : Dry Skin Temperature : Warm Pain Symptoms : No BRITT PATTERSON RN - 07/10/2016 11:48 PROFESSOR OF JOURNALISM Cardiovascular Heart Rhythm : Regular Nail Bed Color : [employer] Capillary Refill : Less than 2 seconds BRITT PATTERSON RN - 07/10/2016 11:48 PROFESSOR OF JOURNALISM Respiratory Respiratory Patient Stated Symptoms : None Respirations : Unlabored Distress : None Respiratory Pattern : Regular Cough and Deep Breathe : Done Cough : None BRITT PATTERSON RN - 07/10/2016 11:48 PROFESSOR OF JOURNALISM GI/ Nausea Symptoms : No BRITT PATTERSON RN - 07/10/2016 11:48 PROFESSOR OF JOURNALISM Integumentary Skin Color : Normal for ethnicity Skin Description : Dry Skin Temperature : Warm BRITT PATTERSON - 07/10/2016 11:48 PROFESSOR OF JOURNALISM Peripheral IV Peripheral IV Assess/Intervention Grid Peripheral IV #1 IV Activity : Discontinue Removal : Catheter intact, Hemostasis within expected timeframe Date of Insertion : 07/10/2016 PROFESSOR OF JOURNALISM Discontinued Date : 07/10/2016 PROFESSOR OF JOURNALISM IV Site : Hand Laterality : Right Catheter Size : 20 Catheter Type : Over the needle Site Condition : No complications Drainage Description : None Infiltration Score : 0 Phlebitis Score : 0 BRITT PATTERSON 07/10/2016 11:48 PROFESSOR OF JOURNALISM I&O Oral Intake : 120 mL Other Intake : 400 mL (Comment: I.V. fluids [BRITT PATTERSON 07/10/2016 11:48 PROFESSOR OF JOURNALISM] ) BRITT PATTERSON 07/10/2016 11:48 PROFESSOR OF JOURNALISM Nutrition Morning Snack : 100 % BRITT PATTERSON 07/10/2016 11:48 PROFESSOR OF JOURNALISM Neurologic Swallowing Difficulty/Aspiration Risk : None Extremity Movement : Equal Facial Symmetry : Symmetric Characteristics of Speech : Appropriate for age BRITT PATTERSON 07/10/2016 11:48 PROFESSOR OF JOURNALISM Activity Patient Position : Elevate head of bed 45 degrees BRITT PATTERSON 07/10/2016 11:48 PROFESSOR OF JOURNALISM PARSAP Activity Status : Moves 4 extremities [...] Score : 20 BRITT PATTERSON 07/10/2016 11:48 PROFESSOR OF JOURNALISM Vale Vale Agitation Sedation Scale (RASS) : Alert and calm RASS Score : 0 BRITT PATTERSON 07/10/2016 11:48 PROFESSOR OF JOURNALISM Hawk Sensory Perception Hawk : No impairment Moisture Hawk : Rarely moist Activity Hawk : Walks frequently Mobility Hawk : No limitations Nutrition Hawk : Excellent Friction and Shear Hawk : No apparent problem Hawk Score : 23 BRITT PATTERSON 07/10/2016 11:48 PROFESSOR OF JOURNALISM Falls Assessment Fall Injury Risk History of Falls : No Patient at Risk for Falls : No Fall Injury Risk Factors : None of the below Risk Factors Patient has increased Fall Injury Risk : No BRITT PATTERSON RN - 07/10/2016 11:48 PROFESSOR OF JOURNALISM Hendrich II Fall Risk Confusion/Disorientation Hendrich : [...] 1 BRITT PATTERSON RN - 07/10/2016 11:48 PROFESSOR OF JOURNALISM Safe Patient Handling Safe Pt Handling Independent : Yes - No equipment needed Safe Pt Handling Equipment Rec : No Equipment Needed BRITT PATTERSON RN - 07/10/2016 11:48 PROFESSOR OF JOURNALISM Source: [employer] Document Id: [id number] PROFESSOR OF JOURNALISM!101 ESSOR OF JOURNALISM Miscellaneous - Pinky Ordonez M.D. - 07/10/2016 11:27 AM CST Hospital Patient Education The following Patient Education Materials have been given to the patient: Patient Education Materials: Discharge Instructions - Adult (CUSTOM) Ambulatory DIET, High FIber ED/Trauma Understanding Diverticulosis and Diverticulitis [id number] Endoscopy/Colonoscopy/Flexible Sigmoidoscopy Post-Procedure Discharge Instructions Date: Sunday, [...] call your doctor or the Emergency Department ([phone])if you have any questions OR notice any [...] grain cereal with bran (Chex, Raisin Bran, [place] Bran), oatmeal, rolled oats, granola,wheat flakes, brown [...] all kinds OTHER: Popcorn, any spices ?? [phone] Inez Olivera, [address] [place] [address], [place] [address]. All rights reserved. This information is not [...] needed, you may be told to take dvvl-uzo-ftjipdd stool softeners. To help relieve pain, antispasmodic [...] the option of having surgery with you. [place] [facility] Colon [facility] Help keep your colon healthy with a diet that includes plenty of high-fiber fruits, vegetables, and whole grains. Drink plenty of liquids like water and juice. ?? [phone] Inez [facility], [address] [place] [address], [place] [address]. All rights reserved. This information is not intended as a substitute for professional medical care. Always follow your healthcare professional's instructions. This document has images extracted. Please consider using [employer] for all your patient education needs. Source: [facility] POWERCHART Document Id: [id number] ESSOR OF JOURNALISM documented in this encounter Plan of Treatment Not on filedocumented as of this encounter Visit Diagnoses Not on filedocumented in this encounter Additional Health Concerns Assessment Noted Time PHQ-9 Depression Total Score: 2 03/08/2015 11:16 AM CS T documented as of this encounter
--- OUTSIDE RECORDS SUMMARY | 2022-04-11 08:12 | XMS_ITS | Encounter Summary ---
:1940 Author Organization [facility] Address [address] [place] [address] Care Team Providers Name Role Phone Unavailable Primary Care Provider Unavailable Encounter Details Date Type Department Care Team Description 07/01/2016 Hospital Encounter HX [facility] Ricardo Bethea M.D., Ph.D. [address] [place] [phone] (Wo rk) Social History Tobacco Use [...] suggests that it was the tartrate formulation. epucqpjovqyp-yioxxban-kaj Take 1 tablet by 0 06/0608/15/2018 ifrah [...] Historical Provider Ser - 07/01/2016 11:59 PM FIELD ARTILLERY FIRE CONTROL MAN Coding Summary-Paper Based CODING DATE: 07/04/2016 FINAL [facility] STATUS: * Discharged [...] Date Saved: 07/04/2016 01:09 pm Source: [facility] Document Id: [id number] Miscellaneous - Tea Givens M.D. - 07/01/2016 1:52 PM CST From: TEA GIVENS MD To: ID Family Medicine Nurse Rodrick; Sent: 07/01/2016 13:52:31 FIELD ARTILLERY FIRE CONTROL MAN Call, His ultrasound shows diffuse fatty liver (hepatic steatosis). To prevent this from progressingto a more significant disease state, he should eat a lower carb diet. Source: [facility] [email or web address] Document Id: [id number] Electronically signed by Conversion, [facility] Events Associate [id number] at 10/15/2016 1:01 AM CDT documented in this encounter Plan of Treatment Not on filedocumented as of this encounter Visit Diagnoses Not on filedocumented in this encounter Additional Health Concerns Assessment Noted Time PHQ-9 Depression Total Score: 2 03/08/2015 11:16 AM CS T documented as of this encounter
--- OUTSIDE RECORDS SUMMARY | 2022-04-11 08:12 | XMS_ITS | Encounter Summary ---
:1940 Author Organization [facility] Address [address] [place] [address] Care Team Providers Name Role Phone Unavailable Primary Care Provider Unavailable Encounter Details Date Type Department Care Team Description 01/09/2010 Hospital Encounter HX [facility] Delbert Almaguer M.D. [address] [phone] (Wo rk) Social History Tobacco Use [...] Almaguer M.D. - 01/09/2010 12:00 AM CDT [id number] IMPRESSION / REPORT / PLAN Cerumen impaction [...] felt that he had [facility] and so he did that and felt [...] ALMAGUER MD On 01/15/2010 08:32 AM Source: [facility] MHSDOLBEYNONRADSYS Document Id: [id number] documented in this encounter Nursing Notes Conversion, Historical Provider Ser - 01/11/2010 11:50 AM CDT Pt is scheduled for a colonoscopy on January 31 at 815am at [address] A message was left for the pt to call clinic for information Electronically Signed By:TIEN ELLIS On 01/11/2010 11:51 am Source: [facility] [email or web address] Document Id: [id number] documented in this encounter Miscellaneous Notes Miscellaneous - Tj Almaguer M.D. - 01/09/2010 2:40 PM CDT General Message From: TJ ALMAGUER MD Sent: 01/09/2010 14:40:41 CDT Subject: General Message Please schedule followup colonoscopy, history polyps X 2 in 2003. [place]. Source: [facility] [email or web address] Document Id: [id number] Electronically signed by Conversion, [facility] Emanations Analysis Technician [id number] at 10/07/2016 1:31 AM CDT Miscellaneous - Conversion, Historical Provider Ser - 01/09/2010 1:57 PM CDT Adult Electrical And Electronic Assembler Intake/History Adult Electrical And Electronic Assembler Intake/History Entered On: 01/09/2010 14:00 CDT Performed [...] ELLIS - 01/09/2010 13:57 CDT Allergies [facility] Document Id: [id number] CDT!22 documented in this encounter Plan of Treatment Not on filedocumented as of this encounter Visit Diagnoses Not on filedocumented in this encounter
--- OUTSIDE RECORDS SUMMARY | 2022-04-11 08:12 | XMS_ITS | Encounter Summary ---
:1940 Author Organization [facility] Address [address] [place] [address] Care Team Providers Name Role Phone Unavailable Primary Care Provider Unavailable Encounter Details Date Type Department Care Team Description 09/27/2010 Hospital Encounter HX [facility] Alfonso Cervantes P.A.-C. [address] [place] [phone] (Wo rk) Social History Tobacco Use Types [...] Cervantes P.A.-C. - 09/27/2010 12:00 AM CDT [id number] CHIEF COMPLAINT/REASON FOR VISIT Medication refill. HISTORY [...] 70 years old. 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 FAMILY HISTORY His [...] get the results of his labs back. TLR/kln Signed [facility] Electronically Signed By: ANA CERVANTES PA-C On: 10/03/2010 09:03 AM Source: [facility] MHSDOLBEYNONRADSYS Document Id: [id number] documented in this encounter Miscellaneous Notes Miscellaneous - Ana Cervantes P.A.-C. - 09/27/2010 11:28 AM CDT Ambulatory Vitals Height Weight Ambulatory Vitals Height Weight Entered On: 09/27/2010 11:29 CDT Performed On: 09/27/2010 11:28 CDT by ANA CERVANTES PA-C Vitals/Ht/Wt Systolic Blood Pressure: 117mmHg Diastolic Blood Pressure: 72mmHg NIBP Mean: 87mmHg ANA CERVANTES PA-C - 09/27/2010 11:28 CDT Source: [employer] Document Id: [id number] CDT!5 Miscellaneous - Conversion, Historical Provider Ser - 09/27/2010 8:31 AM CDT Adult Virtual Recruiter Intake/History Adult Virtual Recruiter Intake/History Entered On: 09/27/2010 8:33 CDT Performed [...] ELLIS; Reviewed Date: 01/09/2010 14:01 CDT [facility] Document Id: [id number] CDT!25 documented in this encounter Plan of Treatment Not on filedocumented as of this encounter Visit Diagnoses Not on filedocumented in this encounter
--- OUTSIDE RECORDS SUMMARY | 2022-04-11 08:13 | XMS_ITS | Encounter Summary ---
:1940 Author Organization [facility] Address [address] [place] [address] Care Team Providers Name Role Phone Unavailable [...]
--- OUTSIDE RECORDS SUMMARY | 2022-04-11 08:13 | XMS_ITS | Encounter Summary ---
:1940 Author Organization [facility] Address [address] [place] [address] Care Team Providers Name Role Phone Unavailable [...] PM 4 3:43 CDT PM CDT Narrative [facility] - 09/09/2003 3:43 PM CDT ?09/09/2003 General Biopsy ? ([id number]) ? Requested By: ??Giulia Gonzalez ??[id number] ?? Additional Physician: ??Raymundo hermosillo M.D. [id number] ? TISSUE DESCRIPTION: [id number] A1 ?? A. ??Sigmoid/Rectum, Colon biopsy: ??(5 pieces 0.1 - 0.5 cm. in diameter) ?DIAGNOSIS: ?? Colon, sigmoid and rectum, polyps, endo scopic biopsy: ??Fragments of hyperplastic polyps. ? 09/12/03 ??Shelly Mcnamara M.D. [id number] ? Procedure Note 07/26/2017 09/09/2003 General Biopsy ([id number]) Requested By: Marv Pryor M.D. [id number] Additional Physician: Raymundo uriostegui M.D. [id number] TISSUE DESCRIPTION: [id number] A1 A. Sigmoid/Rectum, Colon biopsy: (5 pie rashawn 0.1 - 0.5 cm. in diameter) DIAGNOSIS: Colon, sigmoid and rectum, polyps, endo scopic biopsy: Fragments of hyperplastic polyps. 09/12/03 Shelly Mcnamara M.D. [id number] Historical Provider LAB PATHOLOGY/CYTOLOGY ORDER VALDEZ Performing Organization Address City/State/ZIP Code Phon e Number [facility] - [address] [place], [place] [address] [facility] documented in this encounter Visit Diagnoses Not on filedocumented in this encounter
--- OUTSIDE RECORDS SUMMARY | 2022-04-11 08:13 | XMS_ITS | Encounter Summary ---
:1940 Author Organization [facility] Address [address] [place] [address] Care Team Providers Name Role Phone Unavailable [...]
--- OUTSIDE RECORDS SUMMARY | 2022-04-11 08:13 | XMS_ITS | Encounter Summary ---
:1940 Author Organization [facility] Address [address] [place] [address] Care Team Providers Name Role Phone Unavailable [...]
--- OUTSIDE RECORDS SUMMARY | 2022-04-11 08:13 | XMS_ITS | Encounter Summary ---
:1940 Author Organization [facility] Address [address] [place] [address] Care Team Providers Name Role Phone Unavailable [...]
--- OUTSIDE RECORDS SUMMARY | 2022-04-11 08:13 | XMS_ITS | Encounter Summary ---
:1940 Author Organization [facility] Address [address] [place] [address] Care Team Providers Name Role Phone Unavailable Primary Care Provider Unavailable Encounter Details Date Type Department Care Team Description 06/23/2006 - Hospital Encounter HX [facility]ST DERM SURG OP Lorena Fiore M.D. 06/30/2006 [facility] [address] [place] [address] (Wo rk) Social History Tobacco Use Types Packs/Day Years Used Date Smoking Tobacco: Never Assessed Sex Assigned at Date Recorded Not on file documented as of this encounter Plan of Treatment Not on filedocumented as of this encounter Visit Diagnoses Not on filedocumented in this encounter
--- OUTSIDE RECORDS SUMMARY | 2022-04-11 08:13 | XMS_ITS | Encounter Summary ---
:1940 Author Organization [facility] Address [address] [place] [address] Care Team Providers Name Role Phone Unavailable [...] 0 1:00 CDT PM CDT Narrative [facility] - 08/21/1999 1:00 PM CDT [id number] Surgical Pathology Requested By: ? Klaus Gonzalez M.D. ? ([id number]) ?? TISSUE DESCRIPTION: ?? Tissue from the left carotid artery (2.5 x 0.9 x 0.7 cm) ?? DIAGNOSIS: ?? Plaque, left carotid artery, excisio n: ??Segment of atheromatous plaque identified. ?? [id number] ?Tonya Lee M.D.:mgs Procedure Note 07/26/2017 [id number] Surgical Pathology Requested By: Klaus Gonzalez M.D. ( [id number]) TISSUE DESCRIPTION: Tissue from the left carotid artery (2. 5 x 0.9 x 0.7 cm) DIAGNOSIS: Plaque, left carotid artery, excision: Segment of atheromatous plaque identified. [id number] Tonya Lee M.D.:s Klaus Gonzalez M.D. LAB PATHOLOGY/CYTOLOGY ORDER VALDEZ Performing Organization Address City/State/ZIP Code Phon e Number [facility] - [address] [place], [place] [address] [facility] EEG routine - awake and sleep (08/21/1999 12:36 PM CDT) Specimen (Source) Anatomical Collection Method Collection Time Re ceived Time Location / / Volume Laterality 08/21/1999 12:36 PM CDT Narrative [facility] - 08/21/1999 12:36 PM CDT ?? Final Report ? El ectroencephalography ?? Referring Physician: ??Carlos ??[id number] [phone] ? Date: ??21 Aug 1999 ?? EEG Weed Burner: ? Rolf Giordano on ?? Clinical Problem: ? Left carotid endarterectomy [...] no change with occlusion o r following bahai of flow. Rolf Ott ?melchor (Signature date Aug 1999 13:58) Procedure Note Provider, Historical - 08/18/2017Formatt ing of this note might be different from the original. Final Report Electroencephalography Referring Physician: Carlos [id number] Date : 21 Aug 1999 EEG Weed Burner: Rolf Ott -[id number] Clinical Problem: Left carotid endarter ectomy CLINICAL [...] no change with occlusion or f ollowing bahai of flow. Rolf Ott eas (Signature date Aug 1999 13:58) Historical Provider NEUROLOGY ORDERABLES Performing Organization Address City/State/ZIP Code Phon e Number HX [facility] [address] [place] [address], U SA US Carotid (08/20/1999 9:19 AM CDT) Anatomical Region Laterality Modality Ultrasound Specimen (Source) Anatomical Collection Method Collection Time Re ceived Time Location / / Volume Laterality 08/20/1999 9:19 AM CDT Narrative 08/20/1999 11:27 AM CDT 20-Aug-1999 09:19:00 ??Exam: US Carotid Arteries Complete Indications: tia ? [id number] ??cart ORIGINAL REPORT - 20-Aug-1999 11:27:00 VELOCITIES [...] US Carotid Ar teries Complete Indications: tia [id number] cart ORIGINAL REPORT - 20-Aug-1999 11:27:00 VELOCITIES [...] D:[id number] Electronically signed by: Fernanda Ryan M.D. [id number] 20-Aug-1999 11: 27 Gato Osorio M.D. IMG [...] negative. Electronically signed by: Elisha Covarrubias MD. [id number] 18-Aug-1999 14:1 3 Severiano Mayfield M.D. IMG DIAGNOSTIC IMAGING PROCE DURES ECG 12 Lead (08/18/1999 12:55 PM CDT) Specimen (Source) Anatomical Collection Method Collection Time Re ceived Time Location / / Volume Laterality 08/18/1999 12:55 PM CDT [facility] - 08/19/1999 6:48 AM CDT [...] Address City/State/ZIP Code Phon e Number HX [facility] [address] [place] [address], [place] CT Head without IV Contrast (08/18/1999 12:22 PM CDT) Anatomical Region Laterality Modality Head N/A Computed Tomography Specimen (Source) Anatomical Collection Method Collection Time Re ceived Time Location / / Volume Laterality 08/18/1999 12:22 PM CDT Narrative 08/19/1999 9:01 AM CDT 18-Aug-1999 12:22:00 ??Exam: CT Head wo Indications: TIA REVISED REPORT - 19-Aug-1999 09:01:00 Revised 08/19/1999 09:00:15 ([id number]) ??CT scan of the head without contrast is negative. No hemorrhage or mass effect. IND [id number] ??DX ??180.120 Electronically signed by: ?? Reno Bran MD. ??[id number] 19-Aug-1999 0 9:01 Procedure Note Akilah Bran M.D. - 08/11/2017F ormatting of this note might be different from the original. 18-Aug-1999 12:22:00 Exam: CT Head wo Indications: TIA REVISED REPORT - 19-Aug-1999 09:01:00 Revised 08/19/1999 09:00:15 ([id number]) CT scan of the head without c ontrast is negative. No hemorrhage or mass effect. IND [id number] DX 180.120 Electronically signed by: Reno Bran MD. [id number] 19-Aug-1999 09: [address] PROCEDURES documented in this encounter Visit Diagnoses Not on filedocumented in this encounter
--- NOTE | 2022-04-11 08:15 | CRLHL7_ITS ---
For Patients: As a result of the Century Cures Act, medical imaging exams and procedure reports are released immediately into your electronic medical record. You may view this report before your referring provider. If you have questions, please contact your health care provider. INDICATION: Elevated liver function tests. History of gallbladder sludge TECHNIQUE: 5.3 millicuries of technetium-99m labeled Mebrofenin has been given intravenously. Imaging has been performed to 50 minutes. The patient received 1.3 mcg of IV Kinevac and 30 additional minutes of imaging have been performed. FINDINGS: Uptake by the liver is within normal limits. The gallbladder is identified at 15-20 minutes which increases to 50 minutes. There is faint small bowel activity identified after 50 minutes. After CCK there is an excellent response. The calculated gallbladder ejection fraction is 94 percent. Normal is greater than 35 percent. Increasing small bowel activity is identified after CCK. IMPRESSION: Hepatobiliary scan is within normal limits. The cystic and common bile ducts are patent. Uptake and excretion by the liver is within normal limits. The calculated gallbladder ejection fraction is normal at 94 percent. Dictated by Tj Alexis MD @ 04/11/2022 9:55:12 AM (Electronically Signed)
== END 2022-04-11 07:52 | disposition home or self-care (01) ==
LOC: NM 07:52
PROVIDERS: PCP Nurse Practitioner Family; Visit Provider Nurse Practitioner Family
DX: R74.8 Abnormal levels of other serum enzymes (principal)
CPT/HCPCS: 78227; A9537; J2805

== ENCOUNTER 2022-04-18 11:12 | Outpatient (CLI) | payer MEDICARE, BC, SELFPAY ==
[2022-04-18 14:36] LABS: Albumin* 4.3 g/dL (3.3-5.0)
[2022-04-18 14:38] LABS: Bilirubin Direct* 0.3 mg/dL (0.0-0.5); Bilirubin Total* 0.8 mg/dL (0.1-1.5); Bilirubin Total* 0.9 mg/dL (0.1-1.5)
[2022-04-18 14:39] LABS: Alanine Aminotransferase* 42 U/L (4-50); Alkaline Phosphatase* 280 U/L (40-150); Aspartate Amino Transferase* 41 U/L (12-35); Total Protein* 7.5 g/dL (6.0-8.3)
[2022-04-18 14:42] LABS: C Reactive Protein* 1.3 mg/dL (0.5-1.0)
[2022-04-18 15:38] LABS: Erythrocyte SedimentationRate* 26 mm/hr (2-15)
== END 2022-04-18 11:13 | disposition home or self-care (01) ==
PROVIDERS: PCP Nurse Practitioner Family; Visit Provider Nurse Practitioner Family
DX: Z01.818 Encounter for other preprocedural examination (principal); R74.8 Abnormal levels of other serum enzymes; R10.13 Epigastric pain
CPT/HCPCS: 80076; 82247; 85651; 86140

== ENCOUNTER 2022-07-04 15:16 | Outpatient (CLI) | payer MEDICARE, BC, SELFPAY ==
[2022-07-04 15:03] LABS: Albumin* 4.2 g/dL (3.3-5.0)
[2022-07-04 15:05] LABS: Aspartate Amino Transferase* 164 U/L (12-35); Bilirubin Direct* 0.5 mg/dL (0.0-0.5); Bilirubin Total* 1.2 mg/dL (0.1-1.5); Total Protein* 7.5 g/dL (6.0-8.3)
[2022-07-04 15:06] LABS: Alanine Aminotransferase* 248 U/L (4-50); Alkaline Phosphatase* 392 U/L (40-150)
== END 2022-07-04 15:17 | disposition home or self-care (01) ==
PROVIDERS: PCP Nurse Practitioner Family; Visit Provider Nurse Practitioner Family
DX: R74.8 Abnormal levels of other serum enzymes (principal)
CPT/HCPCS: 80076

== ENCOUNTER 2023-01-07 08:52 | Outpatient (CLI) | payer MEDICARE, BC, SELFPAY | END 2023-01-07 08:53 | disposition home or self-care (01) | PROVIDERS: PCP Nurse Practitioner Family; Visit Provider Nurse Practitioner Family | DX: E78.5 Hyperlipidemia, unspecified (principal); I10 Essential (primary) hypertension | CPT/HCPCS: 80061 ==

== ENCOUNTER 2023-01-09 08:18 | Outpatient (CLI) | payer MEDICARE, BC, SELFPAY ==
[2023-01-09 13:49] LABS: Vitamin D 25 Hydroxy* 29 ng/mL (30-80)
== END 2023-01-09 08:19 | disposition home or self-care (01) ==
PROVIDERS: PCP Nurse Practitioner Family; Visit Provider Nurse Practitioner Family
DX: E55.9 Vitamin D deficiency, unspecified (principal)
CPT/HCPCS: 82306; 82652

== ENCOUNTER 2023-04-17 08:22 | Outpatient (CLI) | payer MEDICARE, BC, SELFPAY | END 2023-04-17 08:23 | disposition home or self-care (01) | PROVIDERS: PCP Nurse Practitioner Family; Visit Provider Nurse Practitioner Family | DX: E78.5 Hyperlipidemia, unspecified (principal); Z51.81 Encounter for therapeutic drug level monitoring | CPT/HCPCS: 80061; 80076 ==

== ENCOUNTER 2023-12-05 13:48 | Outpatient (CLI) | payer MEDICARE, BC, SELFPAY ==
--- OUTSIDE RECORDS SUMMARY | 2023-12-05 13:53 | XMS_ITS | Clinical Summary ---
Author Organization [facility] er Address [address] [place] [address] Care Team Providers Care Playback Operator Name Role Phone Laila Loco APRN, FOOTWEAR SALES COORDINATOR Primary Care Provi moody Allergies Active Allergy Reactions Criticality Noted Date Comments Oxycodone 08/13/2018 Confusion Medications Medication Sig Dispensed Refills Start Date End Date Status nitroglycerin (NITROSTAT) 0.4 MG SL tabletIndications:Justin nary artery 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 pectoris, unspecified vessel or lesion type, unspecified whether [place] or transplanted heart Place 1 tablet (0.4 mg total) under the tongue every 5 (five) minutes if needed for chest pain 10 tablet 2 03/29/2020 Active aspirin 81 MG chewable tablet Chew 1 tablet (81 mg total) 1 (one) time each day Active ezetimibe (ZETIA) 10 MG tabletIndications:Hype rlipidemia, unspecified hyperlipidemia type TAKE ONE TABLET BY MOUTH EVERY DAY 90 tablet 1 12/13/2021 Active metoprolol succinate XL (TOPROL-XL) 25 MG 24 hr tabletIndications:Athe rosclerosis of [place] coronary artery without angina pectoris, unspecified whether [place] or transplanted heart TAKE ONE TABLET BY MOUTH EVERY DAY FOR BLOOD PRESSURE 90 tablet 1 07/05/2022 Active pantoprazole (PROTONIX) 40 MG EC tabletIndications:Su roesophageal reflux disease without esophagitis TAKE ONE TABLET BY MOUTH EVERY DAY BEFORE BREAKFAST 90 tablet 1 10/08/2022 Active rosuvastatin (CRESTOR) 20 MG tablet Take 1 tablet (20 mg total) by mouth 1 (one) time each day 09/17/2022 Active Active Problems Problem Noted Date Diagnosed Date Almieda's esophagus without dysplasia 10/25/2020 Anemia due to chronic blood loss 09/11/2020 Overview: Added automatically from request for surgery [id number] Occult blood in stools 09/11/2020 Overview: Added automatically from request for surgery [id number] Primary osteoarthritis, left shoulder 12/20/2019 Overview: Added automatically from request for surgery [id number] Bilateral hearing loss 12/14/2019 Gastroesophageal reflux disease without esophagi tis 12/14/2019 Hyperglycemia 12/14/2019 Cerumen impaction 04/02/2019 Last Assessment & Plan: Relevant Hx: Pt wears hearing aids bilaterally. History of recurrent cerumen impacation. Has ears cleared about three times a year. Does not use Q-tips. No ear pain. No systemic symptoms. Today's Plan: Bilateral cerumen impaction. Bilateral ear irrigation completed by nursing staff. Follow-up with motor coach bus driver on a regular basis. Age-related osteoporosis wit hout current pathological fracture 11/27/2017 Osteoporosis without pathological fracture 11/27 Peripheral vascular disease 07/02/2017 Unspecified cataract 07/02/2017 Atherosclerotic heart diseas e of [place] coronary artery without angina pectoris 03/09/2015 Cervicalgia 10/28/2014 Hyperlipoproteinemia 09/02/2014 Disturbance of skin sensation 12/07/2013 Vitamin D deficiency 03/10/2009 Polymyalgia rheumatica 03/25/2007 History of cerebrovascular accident 06/10/2006 Encounters Date Type Department Care Team Description 10/02/2023 [facility] [place] [address] [facility] [address] [place] [address] Elisha Woodward MD Atherosclerosis of [place] coronary artery without angina pectoris, unspecified whether [place] or transplanted heart from Last 3 Months Immunizations Name Administration Dates Next Due COVID-19, mRNA, LNP-S, PF, 3 0mcg/0.3mL dose Pfizer 02/16/2021,07/21/2020,06/30/2020 Flu Vaccine High Dose 65yrs and Older IM 020,03/24/2015,07/05/2013 Influenza (IM) Preservative Free 03/03/2007 Influenza 6mo-64yrs Quad Pre servative Free IM 03/24/2015,07/05/2013,03/03/2007 Influenza, Unspecified 03/24/2015 Pneumococcal Conjugate 13-Valent 01/09/2018 Pneumococcal Polysaccharide 06/10/2006 Td 08/29/2003 Tdap 01/09/2023,01/08/2012 Zoster Recombinant 11/12/2022,07/20/2022 Family History Medical History Relation Comments Stroke Father Heart disease Mother Hypertension Mother Cancer Paternal Grandmother Heart disease Sister 2 Hypertension Sister 2 Relation Status Comments Daughter 1 Alive Daughter 2 Alive Father Mother Paternal Grandmother Sister 1 Alive Sister 2 Son 1 Alive Son 2 Alive Social History Tobacco Use Types Packs/Day Years Used Date Smoking Tobacco: Never Smokeless Tobacco: Never Tobacco Cessation:Counseling Given: No Alcohol Use Standard Drinks/Week Comments No 0 (1 standard drink = 0.6 oz pur e alcohol) AUDIT-C Answer Date Recorded Q1: How often do you have a drink containing alc ohol? Never 04/04/2020 Average Number of Drinks Not on file Frequency of Binge Drinking Not on file 05/2019 Overall Financial Resource Strain (CARDIA) Answe r Date Recorded How hard is it for you to pa y for the very basics like food, housing, medical care, and heating? Not hard at all 04/04/2020 PHQ-2 Answer Date Recorded PHQ-9 Total Score 0 05/14/2023 Hunger Vital Sign Answer Date Recorded Within the past 12 months, y ou worried that your food would run out before you got the money to buy more. Never true 04/04/20 20 Within the past 12 months, t he food you bought just didn't last and you didn't have money to get more. Never true 04/04/2020 PRAPARE - Transportation Answer Date Re corded In the past 12 months, has l ack of transportation kept you from medical appointments or from getting medications? No 05/2019 In the past 12 months, has l ack of transportation kept you from meetings, work, or from getting things needed for daily living? No 04/04/2020 Sex and Gender Information Value Date Recorded Sex Assigned at Not on file Gender Identity Not on file Sexual Orientation Not on file Last Filed Vital Signs Vital Sign Reading Time Taken Comments Blood Pressure 139/78 05/14/2023 11:11 AM LINE SERVICE ATTENDANT Pulse 80 05/14/2023 11:11 AM LINE SERVICE ATTENDANT Temperature 36.4 ??C (97.6 ??F) 05/14/2023 11:[address] Respiratory Rate 18 05/14/2023 11:11 AM LINE SERVICE ATTENDANT Oxygen Saturation 93% 05/14/2023 11:11 AM LINE SERVICE ATTENDANT Inhaled Oxygen Concentration - - Weight 72 kg (158 lb 12.8 oz) 05/14/2023 11:11 A M LINE SERVICE ATTENDANT Height 170.2 cm (5' 7.01) 05/14/2023 11:[address] Body Mass Index 24.87 05/14/2023 11:11 AM LINE SERVICE ATTENDANT Plan of Treatment Health Maintenance Due Date Last Done Comments Medicare Annual Wellness Visit (AWV) 01/09/2019 01/09/2018 COVID-19 Vaccine ( season) 2023 02/16/2021, 07/21/2020, 06/30/2020 Influenza Vaccine (#1) 2024 , 03/24/2015, 03/24/2015, Additional history exists Fall Risk Performed 05/14/2024 05/14/2023 DTaP,Tdap,and Td Vaccines (3 - Td or Tdap) 01/09/2033 01/09/2023, 01/08/2012, 08/29/2003 Pneumococcal Vaccine: 65+ Years Completed 01/09/2018, 06/10/2006 Zoster Vaccines Completed 11/12/2022, 07/20/2022 HPV Vaccines Aged Out No longer eligi ble based on patient's age to complete this topic Care Teams Playback Operator Relationship Specialty Start Date End Date Laila Loco APRN, FOOTWEAR SALES COORDINATOR [address] [facility] [place] [address] PCP - General Family Medicine 10/09/22
--- OUTSIDE RECORDS SUMMARY | 2023-12-05 13:53 | XMS_ITS | Encounter Summary ---
Author Organization [facility] er Address [address] [place] [address] Care Team Providers Care Multiple Pressure Riveter Operator Name Role Phone Laila Loco APRN, SPECIALTY TRIMMER Primary Care Provi moody Reason for Visit * Reason Comments Med Refill Encounter Details Date Type Department Care Team (Late st Contact Info) Description 10/02/2023 Refill [place] [address] [address] Elisha Woodward MD [address] [facility] [address] [place] [address] Atherosclerosis of [place] coronary artery without angina pectoris, unspecified whether [place] or transplanted heart Social History Tobacco Use Types Packs/Day Years Used Date Smoking Tobacco: Never Smokeless Tobacco: Never Alcohol Use Standard Drinks/Week Comments No 0 (1 standard drink = 0.6 oz pur e alcohol) AUDIT-C Answer Date Recorded Q1: How often do you have a drink containing alc ohol? Never 04/04/2020 Average Number of Drinks Not on file 020 Frequency of Binge Drinking Not on file [...] on file Sexual Orientation Not on file documented as of this encounter Miscellaneous Notes * Telephone Encounter - Gilda Lee LPN - 10/06/2023 9:11 AM CDT Pts PCP is at [facility] and sees Cardiology at [facility] . pharmacy was informed to send request to them documented in this encounter Plan of Treatment Not on file documented as of this encounter Visit Diagnoses Diagnosis Atherosclerosis of [place] coronary artery without angina pectoris, unspecified whether [place] or transplanted heart documented in this encounter Care Teams Multiple Pressure Riveter Operator Relationship Specialty Start Date End Date Laila Loco, PAPER MILL SUPERVISOR, SPECIALTY TRIMMER [address] [place] [address] PCP - General Family Medicine 10/09/22 documented as of this encounter
--- OUTSIDE RECORDS SUMMARY | 2023-12-05 13:53 | XMS_ITS | Encounter Summary ---
Author Organization [facility] er Address [address] [place] [address] Care Team Providers Care Eyeglass Frames Inspector Name Role Phone Laila Loco APRN, IRA Primary Care Provi moody Encounter Details Date Type Department Care Team (Late st Contact Info) Description 07/05/2019 Telephone [facility] [address] [place] [address] Laila Loco APRN, HOT SAW OPERATOR [address] [place] [address] Social History Tobacco Use Types Packs/Day Years Used Date Smoking Tobacco: Never Smokeless Tobacco: Never Alcohol Use Standard Drinks/Week Comments No 0 (1 standard drink = 0.6 oz pur e alcohol) AUDIT-C Answer Date Recorded Frequency of Alcohol Consumption Never 06/05/2018 Average Number of Drinks Not on file 019 Frequency of Binge Drinking Not on file 05/2018 PHQ-2 Answer Date Recorded PHQ-2 Score 0 07/06/2019 Sex and Gender Information Value Date Recorded Sex Assigned at Not on file Gender Identity Not on file Sexual Orientation Not on file documented as of this encounter Plan of Treatment Not on file documented as of this encounter Visit Diagnoses Not on filedocumented in this encounter Care Teams Eyeglass Frames Inspector Relationship Specialty Start Date End Date Laila Loco APRN, HOT SAW OPERATOR [address] [place] [address] PCP - General Family Medicine 10/09/22 documented as of this encounter
== END 2023-12-05 13:49 | disposition home or self-care (01) ==
PROVIDERS: PCP Nurse Practitioner Family; Visit Provider Nurse Practitioner Family
DX: R73.09 Other abnormal glucose (principal); E78.5 Hyperlipidemia, unspecified; E55.9 Vitamin D deficiency, unspecified; Z13.1 Encounter for screening for diabetes mellitus; Z51.81 Encounter for therapeutic drug level monitoring
CPT/HCPCS: 80053; 80061; 82306; 85025

== ENCOUNTER 2024-06-29 13:14 | Outpatient (CLI) | payer MEDICARE, BC, SELFPAY | END 2024-06-29 13:15 | disposition home or self-care (01) | PROVIDERS: PCP Nurse Practitioner Family; Visit Provider Nurse Practitioner Family | DX: R79.89 Other specified abnormal findings of blood chemistry (principal); J18.9 Pneumonia, unspecified organism | CPT/HCPCS: 84443; 85025; 86376 ==